=== PATIENT | female | born 1960 | race Caucasian/White ===

== ENCOUNTER → 2018-09-09 13:14 | Outpatient (CLI) | payer MEDICAID, SELFPAY | PROVIDERS: Family Provider Family Medicine; PCP Family Medicine; Referring Provider Family Medicine; Visit Provider Family Medicine | DX: E11.8 Type 2 diabetes mellitus with unspecified complications (principal); E11.65 Type 2 diabetes mellitus with hyperglycemia | CPT/HCPCS: 82009 ==

== ENCOUNTER 2018-10-04 05:50 | Emergency (ER) | payer MEDICAID, SELFPAY ==
[2018-10-04 05:51] VITALS: BP 184/111; PULSE 105; RESP 18; TEMP 36.9; O2SAT 99; BMI 21.6
[2018-10-04 06:01] LABS: Bedside Glucose 265 mg/dL (70-110)
--- NOTE | 2018-10-04 06:19 | ED.DCSUM_ITS ---
History of Present Illness Chief Complaint: General Illness Informant: Patient Narrative: Patient states she had trouble sleeping overnight because of right-sided abdominal discomfort for the last 3 or 4 days off and on, and a headache that is been there 5 or 6 days and has not gone away. She has a history of migraines and this feels similar, which he takes ibuprofen 600 mg and Maxalt, the headache improves. Headaches are not new for her. She started insulin around 3 weeks ago and thinks her abdominal discomfort may be in her abdominal wall from where she is injecting insulin, she tries to scatter it around and very the location. It hurts worse when she moves, actively sits up, and better when she remains still. No associated GI symptoms otherwise. Has had prior cholecystectomy. States her blood sugar was high this morning at 340, it has been all over the place in the last month and she brings a log showing some blood sugars at 66 and others in the 400s. She takes oral diabetes medication as well and has been working with her doctor. After taking her blood sugar and seen the 340 this morning, she took her daily insulin. She has been under a lot of stress for the last several weeks, mourning the of her mother, who had Alzheimer's and was under the care of the patient and her for a long time at home. She states now that she is here in the ER, her abdominal discomfort is much improved, she took no medication prior to coming. 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 She denies any ear symptoms. She denies any recent falls. No lateralizing neurologic symptoms. - Past Medical History (1) Migraine without aura Status: Chronic (2) Vertigo Status: Chronic (3) Gastroparesis due to DM Status: Chronic (4) HLD (hyperlipidemia) Status: Chronic (5) HTN (hypertension) Status: Chronic (6) History of orthostatic hypotension Status: Chronic (7) Post-concussion syndrome Status: Chronic (8) Type II diabetes mellitus Status: Chronic Past Medical History - Allergies and Home Meds Allergies/Adverse Reactions: Allergies No Known Allergies Allergy (Verified 10/04/18 05:53) Primary Care Physician: Dennys Serrano MD [Primary Care Provider] - 3-5 Days if not improving Surgical History: cholecystectomy Lives: Spouse/ Significant Other Smoking Status: Never smoker Drugs: None Review of Systems General: Denies: Chills, Fever, Sweats Eyes: Denies: Visual changes - bilaterally, Diplopia ENT: Denies: Rhinorrhea, Sore throat Cardiovascular: Denies: Chest pain, Palpitations Respiratory: Denies: Dyspnea, Cough, Dyspnea on exertion Gastrointestinal: Reports: Abdominal pain, Nausea. Denies: Vomiting, Diarrhea, Melena, Hematochezia Genitourinary: Reports: - - no vaginal discharge or bleeding or discomfort. Denies: Dysuria, Hematuria, Frequency Musculoskeletal: Denies: Back pain, Extremity Pain Skin: Denies: Rash, Wounds Neurological: Reports: Headache, - - vertigo x 6mos. Denies: Weakness, Numbness Psych: Reports: Depression. Denies: Suicidal thoughts, Suicidal ideations Physical Exam Vital Signs/Narrative: Vital Signs Temp Pulse Resp BP Pulse Ox 10/04/18 05:51 98.5 F 105 H 18 184/111 H 99 Inital Vital Signs reviewed: Yes General: Well nourished, Well developed, No Acute Distress - well-appearing Head: Normocephalic, Atraumatic Eyes: Perrl, EOMI ENT: Moist mucous membranes, No rhinorrhea Neck: Supple, Nontender Cardiovascular: Regular rate, Regular rhythm, No murmurs Respiratory: No distress, CTA bilaterally, Chest nontender Abdomen: Soft, Nontender, Nondistended, Normal bowel sounds Back: Nontender, Normal Inspection Extremities: Nontender, No edema. Negative for: Calf Tenderness Skin: Normal color, No rash, No Trauma Neurological: Alert, Oriented x3, Cranial nerves II-XII grossly intact, Normal Strength, Normal Sensation, Normal Gait Psychological: Normal affect, Normal Mood Diagnostic/Tx/Re-eval Laboratory Tests 10/04/18 10/04/18 10/04/18 Range/Units 06:30 06:30 05:53 WBC 4.5 (4.4-11.0) K/mm3 RBC 3.81 L (4.2-5.4) M/mm3 Hgb 10.9 L (12.0-15.0) g/dl Hct 31.6 L (37-47) % MCV 82.9 (81-99) fL MCH 28.6 (27.0-32.0) pg MCHC 34.5 (32-36) g/gl RDW 12.6 (11.6-14.6) % RDW Differential 38.3 (35.1-43.9) fl Plt Count 221 (150-450) K/mm3 MPV 8.8 (6.2-12.0) fl Immature Gran % (Auto) 0.000 (0.0-0.9) % Neut % (Auto) 61.0 (47-70) % Lymph % (Auto) 32.1 (19-41) % [place] % (Auto) 4.7 (0-10) % Eos % (Auto) 2.0 (0-5) % Baso % (Auto) 0.2 (0-1) % Absolute Neuts (auto) 2.7 (2.0-7.7) X10^3/uL Absolute Lymphs (auto) 1.44 (0.83-4.51) X10^3/ul Total Counted Not Reportable Sodium 141 (136-145) mmol/L Potassium 3.6 (3.5-5.1) mmol/L Chloride 104 (98-107) mmol/L Carbon Dioxide 31.0 (21.0-32.0) mmol/L Anion Gap 6 (5-15) BUN 18 (7-18) mg/dL Creatinine 0.78 (0.55-1.02) mg/dL Estim Creat Clear Calc 72.47 ml/min Est GFR (MDRD) Af Amer 98 (>60) mL/min Est GFR (MDRD) Non-Af 81 (>60) mL/min BUN/Creatinine Ratio 23.0 H (10-20) RATIO Glucose 232 H (74-106) mg/dL Calcium 9.1 (8.5-10.1) mg/dL Total Bilirubin 0.40 (0.20-1.00) mg/dL AST 10 L (15-37) U/L ALT 23 (13-56) U/L Alkaline Phosphatase 81 (45-117) U/L Total Protein 6.2 L (6.4-8.2) g/dL Albumin 3.1 L (3.2-5.0) g/dL Globulin 3.1 (2.2-4.2) g/dL Albumin/Globulin Ratio 1.0 (0.9-2.4) RATIO POC Glucose 265 H (70-110) mg/dL - Medical Decision Making Labs were obtained and are unremarkable with a white count of 4.5. She was given a GI cocktail and Bentyl for her abdominal discomfort, did not change a lot but she is not in a significant amount of discomfort. Her headache is improved after Reglan and Toradol along with some IV fluids. Still awaiting urinalysis. An hour after her initial blood sugar checked, she is down to 2/10 and no further treatment is necessary for that. However, her blood pressure still elevated in the 180s despite feeling better. I do not think she has acute intracranial hemorrhage, but treating this number may make her symptoms improve as well. She is getting clonidine. If her urinalysis shows no infection and her blood pressure improves, she will be discharged with appropriate instructions for follow-up. Also given a prescription for Reglan. She will need to follow-up for a blood pressure recheck. ED Disposition - Plan for ED Patient: Disposition: Home or Assisted Living Diagnosis: Migraine headache, Right sided abdominal pain, Hyperglycemia due to type 2 diabetes mellitus, Episode of hypertension Instructions: Diabetic Hyperglycemia, HEADACHE, Migraine (Classical) Prescriptions: Metoclopramide [Reglan] 10 mg PO Q6H PRN #12 tab PRN Reason: Headache/nausea Prescription Printed Referrals: Dennys Serrano MD [Primary Care Provider] - 3-5 Days if not improving
[2018-10-04] MEDS: Mag Hydrox/Al Hydrox/Simeth 30 ML UDC PO (06:30)
[2018-10-04] MEDS: Dicyclomine 10 MG Capsule 20 MG PO (06:30)
[2018-10-04] MEDS: Metoclopramide 10 MG/2 ML Vial IV (06:36)
[2018-10-04] MEDS: 0.9% Normal Saline 1,000 ML 999 ML IV (06:36)
[2018-10-04] MEDS: Ketorolac 15 MG/ML Vial IV (06:36)
[2018-10-04 06:43] LABS: Absolute Lymphocyte Count 1.44 X10^3/ul (0.83-4.51); Absolute Neutrophil Count 2.7 X10^3/uL (2.0-7.7); Basophil# 0.01 X10^3/uL; Basophil% 0.2 % (0-1); Eosinophil# 0.09 X10^3/uL; Hematocrit 31.6 % (37-47); Hemoglobin 10.9 g/dl (12.0-15.0); Lymphocyte # 1.44 X10^3/ul (4.0); Lymphocyte % 32.1 % (19-41); Mean Corp Hgb Conc 34.5 g/gl (32-36); Mean Corpuscular Hgb 28.6 pg (27.0-32.0); Mean Corpuscular Volume 82.9 fL (81-99); Mean Platelet Vol. 8.8 fl (6.2-12.0); Monocyte# 0.21 X10^3/uL; Monocyte% 4.7 % (0-10); Neutrophil # 2.74 X10^3/uL (2.7-7.7); Platelet Count 221 K/mm3 (150-450); RBC Distribution Width CV 12.6 % (11.6-14.6); RBC Distribution Width SD 38.3 fl (35.1-43.9); Red Blood Count 3.81 M/mm3 (4.2-5.4); White Blood Count 4.5 K/mm3 (4.4-11.0)
[2018-10-04 06:44] LABS: POSITIVE COUNT NO; POSITIVE DIFFERENTIAL NO; POSITIVE MORPHOLOGY NO
[2018-10-04 06:59] LABS: AST(SGOT) 10 U/L (15-37); Alanine Aminotransfer ALT/SGPT 23 U/L (13-56); Albumin, Serum 3.1 g/dL (3.2-5.0); Alkaline Phosphatase 81 U/L (45-117); Anion Gap 6 (5-15); BUN 18 mg/dL (7-18); Calcium,Total 9.1 mg/dL (8.5-10.1); Chloride 104 mmol/L (98-107); Creatinine, Serum 0.78 mg/dL (0.55-1.02); EST Glomerular Filtration Rate 81 mL/min (>60); Est Glom Filt Rate - Afr Amer 98 mL/min (>60); Estimated Creatinine Clearance 72.47 ml/min; Globulin 3.1 g/dL (2.2-4.2); Glucose 232 mg/dL (74-106); Potassium 3.6 mmol/L (3.5-5.1); Protein, Total 6.2 g/dL (6.4-8.2); Sodium Level 141 mmol/L (136-145)
[2018-10-04 07:15] LABS: Bedside Glucose 210 mg/dL (70-110)
[2018-10-04] MEDS: cloNIDine HCl 0.1 MG Tablet 0.2 MG PO (07:25)
[2018-10-04 07:26] VITALS: BP 188/107; PULSE 99; RESP 17; O2SAT 98
[2018-10-04 07:29] LABS: Bacteria 0 SEEN /hpf (None Seen); Mucous, Urine 0 SEEN /hpf (<or=2+); Red Blood Cells-Urine 0 SEEN /hpf (0-5); White Blood Cells 0 SEEN /hpf (0-5)
[2018-10-04 08:02] LABS: Color, Urine Yellow (Yellow); Glucose, Dipstick 250 mg/dl (Normal); Ketone-Dipstick 5 mg/dl (Negative); Leukocyte Esterase-Dipstick Negative /ul (Negative); Nitrite-Dipstick Negative (Negative); Occult Blood-Urine Negative /ul (Negative); Protein-Dipstick 30 mg/dl (Negative); Urine Bilirubin Dipstick Negative (Negative); Urine Clarity Clear (Clear); Urine Urobilinogen Normal (Normal)
[2018-10-04 08:04] VITALS: BP 164/99; PULSE 88; RESP 15
[2018-10-04 08:16] LABS: Squamous Epithelial Cells - UA 0-5 SEEN /hpf (5-10)
--- NOTE | 2018-10-04 08:26 | ED.VISSUMM ---
- ER Visit Summary Date of Service: 10/04/18 Chief Complaint: [Addendum to initial dictation by Dr. Karri Moura] History of Present Illness: The patient is a 58 F [the emergency department with multiple complaints of headache and abdominal discomfort and dizziness. Patient was fully evaluated by the initial physician and care was turned over to me awaiting urinalysis results. Patient also was given antihypertensive and I was asked to recheck patient's blood pressure. After clonidine the pressure now is in the 150s over 90s. Patient overall feeling improved. Urinalysis was normal. I was instructed to discharge patient home and have her follow-up with her primary care physician as long as her urinalysis was unremarkable and her blood pressure improved.] Physical Examination: [HEENT-PERRLA, EOMI. Cranial nerves II through XII grossly intact. TMs clear. Mucous membranes moist. No adenopathy. Cardiovascular-regular rate and rhythm without murmur or ectopy Lungs-clear to auscultation, chest wall stable without crepitus or subcu emphysema Abdomen-normoactive bowel sounds, soft, nontender, no rebound or rigidity, no peritoneal signs. Extremities-intact ?4, normal range of motion, normal pulses, atraumatic] Test Results: [Urinalysis was normal.] Emergency Department Course and Treatment: [] Treatment Plan: [Patient was written a prescription by Dr. Moura for Reglan.] Disposition: [Discharged home in stable condition] Impression: [Migraine headache Hypertension Abdominal pain Hyperglycemia] This note was generated with [employer] dictation software. It may contain incorrect words, spelling, and punctuation that were not noted in review of the chart prior to signing ED Disposition - Plan for ED Patient: Disposition: Home or Assisted Living Diagnosis: Migraine headache, Right sided abdominal pain, Hyperglycemia due to type 2 diabetes mellitus, Episode of hypertension Instructions: Diabetic Hyperglycemia, HEADACHE, Migraine (Classical) Prescriptions: Metoclopramide [Reglan] 10 mg PO Q6H PRN #12 tab PRN Reason: Headache/nausea Prescription Printed Referrals: Dennys Serrano MD [Primary Care Provider] - 3-5 Days if not improving
[2018-10-04 08:30] VITALS: BP 157/95; PULSE 91; RESP 16; O2SAT 98
== END 2018-10-04 08:38 | disposition home or self-care (01) ==
PROVIDERS: Emergency Provider Emergency Medicine; Family Provider Family Medicine; PCP Family Medicine
DX: G43.909 Migraine, unspecified, not intractable, without status migrainosus (principal); E11.42 Type 2 diabetes mellitus with diabetic polyneuropathy; E11.43 Type 2 diabetes mellitus with diabetic autonomic (poly)neuropathy; I10 Essential (primary) hypertension; R10.9 Unspecified abdominal pain; G30.9 Alzheimer's disease, unspecified; Z79.4 Long term (current) use of insulin; Z90.49 Acquired absence of other specified parts of digestive tract; Z87.820 Personal history of traumatic brain injury; E78.5 Hyperlipidemia, unspecified; F07.81 Postconcussional syndrome
CPT/HCPCS: 80053; 81001; 82962; 85025; 96361; 96374; 96375; 99285; J7030; A4216

== ENCOUNTER 2018-10-09 02:38 | Emergency (ER) | payer MEDICAID, SELFPAY ==
[2018-10-09 02:39] VITALS: BP 187/114; PULSE 100; RESP 20; TEMP 36.9; O2SAT 98; BMI 20.8
--- NOTE | 2018-10-09 02:46 | EKG12_ITS ---
Test Reason : DIZZY Blood Pressure : / mmHG Vent. Rate : 097 BPM Atrial Rate : 097 BPM P-R Int : 148 ms QRS Dur : 080 ms QT Int : 364 ms P-R-T Axes : 075 070 078 degrees QTc Int : 462 ms Normal sinus rhythm Normal ECG Confirmed by DAVID AMEZCUA, TED ([id number]), health editor PRAVEEN NUNEZ ([id number]) on 10/10/2018 12:24:00 PM Referred By: RICO Confirmed By:JUSTUS HERNANDEZ MD
--- NOTE | 2018-10-09 02:47 | ED.VISSUMM ---
- ER Visit Summary Date of Service: 10/09/18 Chief Complaint: Sugar issues, vertigo History of Present Illness: The patient is a 58 F vitamins of issues with her blood sugar as well as vertigo. Her blood sugar was up to 300 today. She states that then dropped down to 80. She has been working with Dr. Serrano over several appointments to help control her blood sugar. She is on oral hyperglycemics at home. She feels like she has a return of vertigo. She has had this in the past. The room is spinning and she feels unsteady on her feet. She took nothing for this at home. She also has a slight headache. No fevers. She was seen here 5 days ago and had a fairly benign work-up for abdominal pain and was discharged home. Physical Examination: Vital signs reviewed. HEENT exam unremarkable. There is no nystagmus. However, she states that movement of the eyes makes her symptoms worse. Heart is regular rate and rhythm without murmurs. Lungs are clear to auscultation. Abdomen is soft and nontender. Extremities reveal no edema. Skin exam normal, except for an abrasion to the left knee. Neurologic exam normal. Test Results: Hemoglobin 11.7. Glucose 181 Emergency Department Course and Treatment: Patient was given normal saline and meclizine. She feels much better. Her blood sugar is 181. I do not feel she needs any more insulin tonight. I will give her meclizine for home and she will need to call her PCP tomorrow for follow-up Treatment Plan: [] Disposition: Discharge Impression: Vertigo This note was generated with [employer] ([employer]) dictation software. It may contain incorrect words, spelling, and punctuation that were not noted in review of the chart prior to signing ED Disposition - Plan for ED Patient: Referrals: Dennys Serrano MD [Primary Care Provider] -
[2018-10-09 02:50] VITALS: BP 169/97; PULSE 96; RESP 16; O2SAT 99
[2018-10-09] MEDS: 0.9% Normal Saline 1,000 ML 999 ML IV (02:54)
[2018-10-09] MEDS: Meclizine HCl 25 MG Tablet PO (02:54)
[2018-10-09 02:57] LABS: Absolute Lymphocyte Count 1.56 X10^3/ul (0.83-4.51); Absolute Neutrophil Count 2.7 X10^3/uL (2.0-7.7); Basophil# 0.02 X10^3/uL; Basophil% 0.4 % (0-1); Eosinophils% 2.1 % (0-5); Hemoglobin 11.7 g/dl (12.0-15.0); Lymphocyte # 1.56 X10^3/ul (4.0); Lymphocyte % 32.6 % (19-41); Mean Corp Hgb Conc 35.5 g/gl (32-36); Mean Corpuscular Volume 81.9 fL (81-99); Mean Platelet Vol. 8.9 fl (6.2-12.0); Monocyte% 8.4 % (0-10); Neutrophil # 2.69 X10^3/uL (2.7-7.7); Neutrophil % 56.3 % (47-70); Platelet Count 260 K/mm3 (150-450); RBC Distribution Width CV 12.6 % (11.6-14.6); RBC Distribution Width SD 37.8 fl (35.1-43.9); Red Blood Count 4.03 M/mm3 (4.2-5.4); White Blood Count 4.8 K/mm3 (4.4-11.0)
[2018-10-09 02:58] LABS: POSITIVE COUNT NO; POSITIVE DIFFERENTIAL NO; POSITIVE MORPHOLOGY NO
[2018-10-09 03:04] LABS: Anion Gap 7 (5-15); BUN 12 mg/dL (7-18); BUN/Creat Ratio 16.6 RATIO (10-20); Calcium,Total 8.7 mg/dL (8.5-10.1); Chloride 104 mmol/L (98-107); Creatinine, Serum 0.72 mg/dL (0.55-1.02); EST Glomerular Filtration Rate 89 mL/min (>60); Est Glom Filt Rate - Afr Amer 107 mL/min (>60); Estimated Creatinine Clearance 78.23 ml/min; Glucose 181 mg/dL (74-106); Potassium 3.7 mmol/L (3.5-5.1); Sodium Level 140 mmol/L (136-145)
--- NOTE | 2018-10-09 03:41 | ED.DEP ---
ED Disposition - Plan for ED Patient: Disposition: Home or Assisted Living Instructions: Benign Positional Vertigo Prescriptions: Meclizine HCl [Antivert] 25 mg PO 4X/DAY PRN PRN #20 tab PRN Reason: Dizziness Prescription Printed Referrals: Dennys Serrano MD [Primary Care Provider] -
[2018-10-09 03:52] VITALS: BP 169/70; PULSE 69; RESP 18; O2SAT 98
== END 2018-10-09 03:53 | disposition home or self-care (01) ==
PROVIDERS: Emergency Provider Emergency Medicine; Family Provider Family Medicine; PCP Family Medicine
DX: R42 Dizziness and giddiness (principal); R51 Headache; E11.9 Type 2 diabetes mellitus without complications; I10 Essential (primary) hypertension; Z72.0 Tobacco use
CPT/HCPCS: 80048; 85025; 93005; 96360; 99284; J7030; A4216

== ENCOUNTER 2018-10-16 10:45 | Observation (INO) | payer MEDICAID, SELFPAY ==
[2018-10-16] VITALS (13 sets, daily range): BP systolic 87–215; BP diastolic 56–123; PULSE 94–100; RESP 14–18; TEMP 36.7–37.1; O2SAT 97–99; BMI 20.7
[2018-10-16] MEDS: 0.9% Normal Saline 1,000 ML 1000 ML IV ×2 (11:30)
[2018-10-16 11:37] LABS: Absolute Lymphocyte Count 1.47 X10^3/uL (0.83-4.51); Absolute Neutrophil Count 3.3 X10^3/uL (2.0-7.7); Basophil# 0.02 X10^3/uL; Basophil% 0.4 % (0-1); Eosinophil# 0.09 X10^3/uL; Eosinophils% 1.7 % (0-5); Hematocrit 33.9 % (37-47); Lymphocyte # 1.47 X10^3/ul (4.0); Lymphocyte % 28.4 % (19-41); Mean Corp Hgb Conc 35.4 g/dL (32-36); Mean Corpuscular Hgb 29.8 pg (27.0-32.0); Mean Corpuscular Volume 84.1 fL (81-99); Mean Platelet Vol. 9.4 fl (6.2-12.0); Monocyte% 5.8 % (0-10); NRBC Flagged by Analyzer 0 % (0-5); Neutrophil # 3.28 X10^3/uL (2.7-7.7); Neutrophil % 63.5 % (47-70); Platelet Count 293 K/mm3 (150-450); RBC Distribution Width CV 12.2 % (11.6-14.6); RBC Distribution Width SD 37.2 fl (35.1-43.9); Red Blood Count 4.03 M/mm3 (4.2-5.4); White Blood Count 5.2 K/mm3 (4.4-11.0)
[2018-10-16 11:46] LABS: Anion Gap 4 (5-15); BUN 12 mg/dL (7-18); BUN/Creat Ratio 15.2 RATIO (10-20); Calcium,Total 9.1 mg/dL (8.5-10.1); Chloride 102 mmol/L (98-107); Creatinine, Serum 0.79 mg/dL (0.55-1.02); EST Glomerular Filtration Rate 80 mL/min (>60); Est Glom Filt Rate - Afr Amer 97 mL/min (>60); Estimated Creatinine Clearance 68.33 ml/min; Glucose 262 mg/dL (74-106); Potassium 3.3 mmol/L (3.5-5.1); Sodium Level 138 mmol/L (136-145)
--- NOTE | 2018-10-16 11:51 | ED.VISSUMM ---
- ER Visit Summary Date of Service: 10/16/18 Chief Complaint: Lightheaded, off balance, falls History of Present Illness: The patient is a [address] Serrano. She reports over the past 2 days she has been a very lightheaded. This gets worse when she stands up and walks. She reports that she is very off balance as well. She has not passed out. However, she has fallen twice in the past 3 days. Did hit her head. No loss of consciousness. She is not on blood thinners. She denies any neck, back, shoulder, wrist, or hip pain. Patient denies any vertigo. She does complain of a headache is 5 out of 10 in severity. She has a history of similar headaches. She denies any other complaints. Physical Examination: Vitals: Stable. Afebrile. General: Well-nourished and well-developed. Head: Normocephalic atraumatic. Neck: Supple, no lymphadenopathy. No JVD. Nontender. Cardiovascular: Regular rate and rhythm. No murmurs. Respiratory: No respiratory distress. Clear to auscultation bilaterally. Abdominal: Soft, nontender, nondistended, normal bowel sounds. No guarding, rebound, or peritoneal signs. Back: Nontender. Extremities: Nontender, no edema. Skin: Normal color, no rash. Neurologic: Alert and oriented ?3. Cranial nerves II through XII are intact. Normal strength and sensation. Psych: Normal affect. Test Results: CBC is normal. Chem-7 shows a potassium 3.3 and glucose of 262. CT brain shows no acute disease. Emergency Department Course and Treatment: Patient's blood pressure in triage was low. However, when this was repeated orthostatic vital signs her blood pressure was in the 230/130 range. She was given a dose of Vasotec IV. Her blood pressures decreased to the 160s over 80s. However, she remains very ataxic when she stands. Treatment Plan: Patient was discussed with Dr. Matos. She will be admitted to the hospital for further evaluation and treatment. Disposition: Admitted in improved condition. Impression: 1. Ataxia. 2. Hypertension. This note was generated with [employer] software. It may contain incorrect words, spelling, and punctuation that were not noted in review of the chart prior to signing ED Disposition - Plan for ED Patient: Instructions: HYPERTENSION, To Be Confirmed, HYPOTENSION, Orthostatic Referrals: Dennys Serrano MD [Primary Care Provider] - 1-2 Days if not improving
[2018-10-16 11:56] LABS: Bedside Glucose 261 mg/dL (70-110)
--- NOTE | 2018-10-16 12:35 | CT_ITS ---
STUDY: CT BRAIN WITHOUT CONTRAST REASON FOR EXAM: Female, 58 years old. HEADACHE, DIZZINESS, FALLS X 1 WK RADIATION DOSAGE (If Supplied By Facility): CTDIvol = ( 60.81 ) mGy, DLP = ( 998.67 ) mGycm TECHNIQUE: Transaxial CT imaging of the brain was performed without administration of intravenous contrast material. Individualized dose optimization techniques were used for this CT. COMPARISON: No prior images. A prior MRI report January 14, 2012 was normal. FINDINGS: Normal soft tissue structures. Normal calvarium. Normal size ventricles and extra-axial spaces for the patient's age. Normal white matter tracts of the cerebral hemispheres. Normal basal ganglia and thalami. Normal brainstem. Normal cerebellum. There is no intracranial hemorrhage. There are no findings of an acute ischemic infarction. Normal visualized paranasal sinuses. CT/Brain/Head without Contrast IMPRESSION: Normal unenhanced CT scan of the brain. Electronically Signed: Rafia Dimas MD at 13:26 EDT , Service support ,
[2018-10-16] MEDS: Ondansetron 4 MG/2 ML Vial IV (13:18)
[2018-10-16] MEDS: Morphine 4 MG/ML Syringe IV (13:18)
[2018-10-16] MEDS: Enalaprilat 1.25 MG/ML Vial IV (15:10)
--- NOTE | 2018-10-16 15:43 | NURSING ---
DR MARISSA DYSON
--- NOTE | 2018-10-16 15:56 | NURSING ---
PCU OBS MARISSA ATAXIA, HYPERTENSION
--- NOTE | 2018-10-16 17:08 | HP.PCM_ITS ---
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 The patient is a 58 year old F who presents emergency room due to light headedness, off balance and falls. Patient reports she has chronic dizziness, lightheadedness following history of trauma at work where she sustained a head injury. Patient reports her injury occurred approximately 10 years ago and she has had ongoing vertigo and falls since that time. She also reports she has a history of orthostatic hypotension. Patient reports she has had increased dizziness over the past 2 days and multiple falls resulting in abrasions. She denies loss of consciousness. She denies new neurologic symptoms however on exam she demonstrates left upper extremity weakness which is new. She reports she previously followed with neurology who she has not seen in a long time. Her other past medical history includes type 2 diabetes mellitus, GERD, history of chronic migraines, hypertension, hyperlipidemia. 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 (Chronic) Post-concussion syndrome (Chronic) History of orthostatic hypotension (Chronic) Type II diabetes mellitus (Chronic) Allergies No Known Allergies Allergy (Verified 10/16/18 10:46) Home Medications: Ambulatory Orders Medication Instructions Recorded Dulaglutide [Trulicity] 1.5 mg SQ SA 10/04/18 Gabapentin [Neurontin] 300 mg PO QHS 10/04/18 Insulin Glulisine [Apidra Solostar] See Protocol SQ 4X/DAY 10/04/18 Meclizine HCl 25 mg PO Q6H PRN PRN 10/04/18 Metformin HCl [Metformin ER 500 mg PO DAILY 10/04/18 Gastric] Rizatriptan Benzoate [Rizatriptan] 10 mg PO DAILY PRN PRN 10/04/18 Ibuprofen [Advil] 400 mg PO Q6H PRN PRN 10/16/18 Omeprazole [Prilosec] 20 mg PO DAILY 10/16/18 Sitagliptin Phosphate [Januvia] 100 mg PO DAILY 10/16/18 Surgical History: cholecystectomy, - - TMJ surgery Psychiatric History: No pertinent psych hx 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 Denies: Sinus Congestion, Sinus Drainage Cardiovascular: Reports: Light Headedness. Denies: Chest Pain, Palpitations, Syncope Respiratory: Denies: Cough, Shortness of breath at rest, Sputum production Gastrointestinal: Denies: Abdominal Pain, Nausea, Vomiting Genitourinary: Denies: Dysuria Musculoskeletal: Denies: Joint Pain, Joint Tenderness Skin: Reports: - - Left knee abrasion, chin abrasion. Denies: Rash, Wounds Neurological: Reports: Balance problems, - - Left arm weakness, ataxia. Denies: Focal weakness, Numbness, Tingling Psychiatric: Denies: Anxiety, Depression, Homicidal Ideations, Suicidal Ideations Hematologic/ Lymphatic: Denies: Easy Bruising, Easy Bleeding VTE Information - Inpt Only VTE Present on Admission: No VTE Mechan Device Prophylaxis: None VTE Pharm Prophylaxis ordered?: Yes - Physical Exam General: Alert, Oriented x3, Cooperative HEENT: Atraumatic, PERRLA, EOMI, Normocephalic Neck: Supple, No JVD, Negative Carotid Bruits Lungs: Clear to auscultation, Normal air movement Cardiovascular: Regular rate, Regular Rhythm, Normal S1, Normal S2, No murmurs Abdomen: Bowel Sounds Present, Soft, Non Tender, Non-Distended Extremities: No clubbing, No cyanosis, No edema, Capillary Refill Less than 3 Seconds Skin: No rashes, No breakdown, - - Left knee abrasion, mandible abrasion Musculoskeletal: No Tenderness to Palpation of Joints or Extremities Neurological: Cranial nerves II-XII grossly intact, - - Bilateral upper extremity ataxia, left arm weakness. Psych/Mental Status: Normal Affect, Appropriate Vital Signs Temp Pulse Resp BP Pulse Ox 98.2 F 97 18 172/97 H 97 10/16/18 10:46 10/16/18 17:00 10/16/18 17:00 10/16/18 17:00 10/16/18 17:00 Oxygen Delivery Method Room Air Weight: 120 lb Body Mass Index (BMI) 20.0 Finger Stick Blood Glucose 261 Laboratory Tests Past 24 Hrs 10/16/18 10/16/18 11:25 11:25 WBC 5.2 RBC 4.03 L Hgb 12.0 Hct 33.9 L MCV 84.1 MCH 29.8 MCHC 35.4 RDW Std Deviation 37.2 RDW Coeff of Chris 12.2 Plt Count 293 MPV 9.4 Immature Gran % (Auto) 0.200 Neut % (Auto) 63.5 Lymph % (Auto) 28.4 [place] % (Auto) 5.8 Eos % (Auto) 1.7 Baso % (Auto) 0.4 Absolute Neuts (auto) 3.3 Absolute Lymphs (auto) 1.47 Absolute Nucleated RBC 0.00 Nucleated RBC % 0 Sodium 138 Potassium 3.3 L Chloride 102 Carbon Dioxide 32.0 Anion Gap 4 L BUN 12 Creatinine 0.79 Estim Creat Clear Calc 68.33 Est GFR (MDRD) Af Amer 97 Est GFR (MDRD) Non-Af 80 BUN/Creatinine Ratio 15.2 Glucose 262 H Calcium 9.1 POC Glucose 10/16/18 11:41 POC Glucose 261 H Assessment/Plan All Active Problems Allergic reaction (Resolved) Angio-edema (Resolved) 1. Ataxia, unsteady gait, falls, LUE weakness-rule out CVA. Brain CT on admission normal. Obtain MRI of brain, MRA of head and neck. PT/OT/ST. Aspirin, statin. Consult neurology. Fall precautions. [facility]. 2. Orthostatic hypotension-orthostatic vitals positive on admission. IV fluids. Repeat in a.m. 3. Hypertension, poorly controlled-received 1 dose of IV Vasotec in ER with improvement in blood pressure. Permissive given #1. 4. Type 2 diabetes mellitus-hold oral regimen. Accu-Cheks ACHS with SSI. 5. Chronic migraines-continue home PRN triptan regimen. 6. GERD-continue omeprazole regimen. 7. Hyperlipidemia-not previously on statin, fasting lipid panel in a.m. DVT prophylaxis-Lovenox subcu This patient was seen by JUAN MANUEL Vigil under the supervision of Dr. Matos. <Go Matos - Last Filed: 10/16/18 18:48> History of Present Illness The patient is a 58 year old F with history of diabetes mellitus type 2, migraine headache came to ER with generalized weakness, dizziness, off balance and recurrent fall. Patient further said she fell 3 times in last week, last one 2 days ago. She fell on her left side of her head but denies loss of consciousness. She she had concussion injury about 10 years ago. The symptoms of dizziness and off-balance are old for about 8 to 10 years but has gotten worse for last 6 weeks. She has mild left upper extremity weakness. In ED, her blood pressure was high. Orthostatics were done which was was positive. She has history of orthostatic hypotension. Past Medical History Allergies No Known Allergies Allergy (Verified 10/16/18 10:46) - Physical Exam General: Alert, Oriented x3, Cooperative, - HEENT: Atraumatic, PERRLA, EOMI, Normocephalic, - - No laceration noted on scalp. Neck: Supple, No JVD, Negative Carotid Bruits Lungs: Clear to auscultation, Normal air movement, No rhonchi, No wheeze, No rales Cardiovascular: Regular rate, No murmurs Abdomen: Bowel Sounds Present, Soft, Non Tender, No Hepato-splenomegaly Extremities: No edema, Capillary Refill Less than 3 Seconds Skin: No rashes, No breakdown, - - Left knee abrasion, mandible abrasion Left knee abrasion with scab. Musculoskeletal: No Tenderness to Palpation of Joints or Extremities, Arthritic Changes, Muscle Wasting Neurological: Cranial nerves II-XII grossly intact, Deep Tendon Reflexes 2+/4 and Symmetrical, Neuro grossly intact, - - Bilateral upper extremity ataxia, left arm weakness. Need to rick test is normal. Left upper extremity weakness 4/5 and has dysmetria. Psych/Mental Status: Normal Affect, Appropriate Vital Signs Temp Pulse Resp BP Pulse Ox 98.8 F 94 16 189/90 H 98 10/16/18 17:44 10/16/18 17:44 10/16/18 17:44 10/16/18 17:44 10/16/18 17:44 Oxygen Delivery Method Room Air Weight: 124 lb 8.979 oz Body Mass Index (BMI) 20.7 Finger Stick Blood Glucose 261 Laboratory Tests Past 24 Hrs 10/16/18 10/16/18 10/16/18 11:25 11:25 18:30 WBC 5.2 RBC 4.03 L Hgb 12.0 Hct 33.9 L MCV 84.1 MCH 29.8 MCHC 35.4 RDW Std Deviation 37.2 RDW Coeff of Chris 12.2 Plt Count 293 MPV 9.4 Immature Gran % (Auto) 0.200 Neut % (Auto) 63.5 Lymph % (Auto) 28.4 [place] % (Auto) 5.8 Eos % (Auto) 1.7 Baso % (Auto) 0.4 Absolute Neuts (auto) 3.3 Absolute Lymphs (auto) 1.47 Absolute Nucleated RBC 0.00 Nucleated RBC % 0 Sodium 138 Potassium 3.3 L Chloride 102 Carbon Dioxide 32.0 Anion Gap 4 L BUN 12 Creatinine 0.79 Estim Creat Clear Calc 68.33 Est GFR (MDRD) Af Amer 97 Est GFR (MDRD) Non-Af 80 BUN/Creatinine Ratio 15.2 Glucose 262 H Calcium 9.1 Urine Opiates Screen Pending Urine Methadone Screen Pending Ur Barbiturates Screen Pending Ur Phencyclidine Scrn Pending Ur Amphetamines Screen Pending U Methamphetamin-MDMA Pending U Benzodiazepines Scrn Pending Urine Cocaine Screen Pending U Cannabinoids Screen Pending Ur Drug Screen Comment POC Glucose 10/16/18 11:41 POC Glucose 261 H Assessment/Plan This patient was seen in conjunction with FINISH SPECIALIST, Marie. I have independently interviewed and examined the patient and reviewed pertinent history, examination findings, laboratory and plan of management. I have reviewed the note and agree with the documented findings with the few additional points. In brief, patient is a 58-year-old female with history of type 2 diabetes mellitus, chronic migraine came to ER with progressive worsening of ataxia, recurrent fall, lightheadedness and high blood pressure. Exact time of onset u nclear but probably [address] head does not show acute change. MRI of brain and MRI C-spine ordered. 2D echo ordered. NIH stroke scale. Neurology is being consulted. Carotid Doppler is ordered. Orthostatic vital shows 214/10, heart rate 138 on lying position and 169/91, 117 on standing. Patient has history of orthostatic hypotension. Patient also with mild hypokalemia which is being replaced. I have discussed my assessment with FINISH SPECIALISTMarie and orders have been reviewed. Code Visit OBSV E&M: 82030 Initial observation care L3
--- NOTE | 2018-10-16 17:38 | MRI_ITS ---
STUDY: MRI BRAIN WITHOUT CONTRAST REASON FOR EXAM: Female, 58 years old. Weakness and ataxia TECHNIQUE: Standardized multiplanar fat and water weighted pulse sequences were obtained. COMPARISON: CT of the brain on October 16, 2018 FINDINGS: Mild to moderate atrophy.. Normal white matter tracts of the supratentorial brain. Tiny focus of increased signal intensity within the right pontine body best visualized on FLAIR imaging sequence consistent with old lacunar infarct. Normal bilateral basal ganglia. Normal thalami. There is no extra-axial fluid accumulation. Normal flow voids within the major intracranial circulation suggesting patency by spin echo criteria. Normal sella turcica, pituitary gland, infundibular stalk, optic chiasm and hypothalamus. Normal tectal plate and pineal gland. Normal midbrain, and medulla. Normal cerebellum. Normal basal cisterns. Normal bilateral temporal bones. Normal bilateral internal auditory canals. No demonstrated orbital abnormality, within the constraints of a routine brain study. Minor mucosal thickening of the left maxillary and bilateral ethmoid air cells. Normal calvarium and skull base. Normal visualized soft tissue structures. Normal visualized upper cervical spine. MRI/Brain without Contrast IMPRESSION: Mild to moderate diffuse atrophy.. No significant white matter disease or evidence for acute infarct. Tiny old right pontine lacunar infarct Electronically Signed: Manjit Saleem MD at 21:04 EDT , Service support ,
--- NOTE | 2018-10-16 17:38 | EKG12_ITS ---
Test Reason : ADMIT EKG Blood Pressure : / mmHG Vent. Rate : 096 BPM Atrial Rate : 096 BPM P-R Int : 164 ms QRS Dur : 082 ms QT Int : 354 ms P-R-T Axes : 087 071 074 degrees QTc Int : 447 ms Normal sinus rhythm Normal ECG When compared with ECG of 09-OCT-2018 02:46, No significant change was found Confirmed by ALYSSIA AMEZCUA, KARLA ([id number]), loan expeditor PRAVEEN NUNEZ ([id number]) on 10/21/2018 2:01:18 PM Referred By: Go Matos Confirmed By:KARLA CADE MD
--- NOTE | 2018-10-16 17:56 | ECHOD_ITS ---
Reason For Study: TIA/CVA Procedure This was a 2D Doppler, Color Flow transthoracic echocardiogram. Exam performed portable in patient room. Left Ventricle Normal LV size. Left ventricular systolic function is normal. Stage 1 diastolic dysfunction. No regional wall motion abnormalities noted. Right Ventricle Normal RV size. Normal systolic function. Atria Normal left atrium. Normal right atrium. Bubble contrast study negative for right to left interatrial shunt. Mitral Valve Normal mitral valve. Tricuspid Valve Normal tricuspid valve. Aortic Valve Normal aortic valve. Trisinus/trileaflet aortic valve. Pulmonic Valve Normal pulmonic valve. Great Vessels Normal aortic root. The pulmonary artery is normal size. Normal inferior vena cava. Pericardium/Pleural No pericardial effusion. Medication Performed a rapid injection of agitated mix of 9 cc saline and 1cc air to assess for atrial septal defect. MMode/2D Measurements & Calculations LVIDd: 5.1 cm IVSd: 0.76 cm Ao root diam: 3.1 cm LVIDs: 3.9 cm LVPWd: 0.76 cm RVDd: 2.8 cm FS: 23.2 % LAV(MOD-bp): 36.5 ml LVAd ap4: 31.5 cm2 SV(MOD-sp4): 51.1 ml LAV(MOD-bp) Indexed: 22.8 ml/m2 EDV(MOD-sp4): 101.3 ml LAV(MOD-sp2): 34.2 ml EDV(sp4-el): 107.3 ml LAV(MOD-sp4): 31.2 ml LVAs ap4: 20.2 cm2 ESV(MOD-sp4): 50.2 ml ESV(sp4-el): 52.7 ml EF(MOD-sp4): 50.4 % EF(sp4-el): 50.9 % SV(sp4-el): 54.6 ml LA A4 area: 12.5 cm2 LA dimension(2D): 3.0 cm RA A4 area: 7.7 cm2 Time Measurements MV dec time: 0.22 sec Doppler Measurements & Calculations MV E max virgil: 72.4 cm/sec Lat Peak E' Virgil: 13.1 cm/sec Med Peak E' Virgil: 8.3 cm/sec MV A max virgil: 79.9 cm/sec E/E' lat: 5.5 E/E' med: 8.7 MV E/A: 0.91 Ao V2 max: 132.8 cm/sec LV V1 max: 88.4 cm/sec PA V2 max: 108.2 cm/sec Ao max P.1 mmHg LV V1 max P.1 mmHg Interpretation Summary Normal LV size. Left ventricular systolic function is normal. Stage 1 diastolic dysfunction. Bubble contrast study negative for right to left interatrial shunt. Ordering Physician: Marie Vela Referring Physician: Go Matos Performed By: Tomeka Trivedi RDCS
--- NOTE | 2018-10-16 18:13 | MRI_ITS ---
STUDY: MRI CERVICAL SPINE WITHOUT CONTRAST REASON FOR EXAM: Female, 58 years old. Ataxia and falls with weakness TECHNIQUE: Standardized fat and water weighted pulse sequences were obtained in the sagittal and axial planes. COMPARISON: None FINDINGS: Normal foramen magnum and brainstem-cervical cord junction. Normal craniovertebral junction. Normal anterior atlantoaxial articulation. Normal odontoid process. Decreased cervical lordosis. Normal vertebral bodies and posterior osseous elements. C2-3: Normal endplates. Normal disc height, signal and morphology. Normal central canal and intervertebral neural foramina. C3-4: Normal endplates. Normal disc height, signal and morphology. Normal central canal and intervertebral neural foramina. C4-5: Normal endplates. Normal disc height, signal and morphology. Normal central canal and intervertebral neural foramina. C5-6: Normal endplates. Normal disc height, signal and tiny right paracentral disc protrusion.. Normal central canal. Mild bilateral neural foraminal encroachment secondary to bony hypertrophy. C6-7: Normal endplates. Normal disc height signal and morphology. Normal central canal and intervertebral neuroforamina C7-T1:: Normal endplates. Normal disc height, signal and small left posterolateral disc protrusion.. Normal central canal and intervertebral neural foramina. Normal cervical cord. Normal visualized soft tissue structures. MRI/Spine Cervical (Routine) IMPRESSION: No evidence for acute fracture or subluxation.. Tiny right paracentral disc protrusion at C5-6 without significant spinal stenosis or cord compression. Mild bilateral neural foraminal encroachment secondary to bony hypertrophy. Small left posterolateral disc protrusion at C7-T1 without significant spinal stenosis Electronically Signed: Manjit Saleem MD at 21:44 EDT , Service support ,
--- NOTE | 2018-10-16 18:50 | MRI_ITS ---
STUDY: MRA NECK WITHOUT CONTRAST REASON FOR EXAM: Female, 58 years old. CVA TECHNIQUE: Source images were obtained, MIPs were performed. The study was performed unenhanced. COMPARISON: None. FINDINGS: RIGHT CAROTID ARTERIES: Normal right common carotid artery (CCA). Normal right common carotid bulb. Normal origin of the right internal carotid (ICA) artery without a hemodynamically significant stenosis. Normal visualized cervical portion of the right internal carotid artery. Normal origin of the right external carotid artery (ECA). LEFT CAROTID ARTERIES: Normal left common carotid artery (CCA). Normal left common carotid bulb. Normal origin of the left internal carotid (ICA) artery without a hemodynamically significant stenosis. Normal visualized cervical portion of the left internal carotid artery. Normal origin of the left external carotid artery (ECA). VERTEBRAL ARTERIES: Normal antegrade flow within the bilateral vertebral artery without a hemodynamically significant stenosis. MRI/MRA Neck without Contrast IMPRESSION: Normal bilateral cervical carotid and vertebral arteries. Electronically Signed: Manjit Saleem MD at 21:07 EDT , Service support ,
--- NOTE | 2018-10-16 18:50 | MRI_ITS ---
STUDY: MRA OF THE HEAD WITHOUT CONTRAST REASON FOR EXAM: Female, 58 years old. CVA TECHNIQUE: 3-D [id number] (TOF) imaging was performed with MIPs. The study was performed unenhanced. COMPARISON: None. FINDINGS: Normal bilateral petrous carotid arteries. Normal right cavernous carotid artery with a normal supraclinoid bifurcation. Normal left cavernous carotid artery with a normal supraclinoid bifurcation. Normal right A1 segments of the anterior cerebral artery. Normal left A1 segments of the anterior cerebral artery. Anterior communicating artery not visualized consistent with normal variant). Normal bilateral A2 segments of the anterior cerebral arteries. Normal right M1 and M2 segments of the middle cerebral arteries, with a normal M1 bifurcation. Normal left M1 and M2 segments of the middle cerebral arteries, with a normal M1 bifurcation. Normal right posterior communicating artery (PCOM). Left posterior communicating artery not visualized consistent with normal variant Normal bilateral vertebral arteries. Normal basilar artery with a normal basilar bifurcation. The visualized bilateral superior cerebellar (SCA) arteries are normal. Normal left posterior cerebral artery. Nonvisualization of the P3 and P4 segments of the right posterior cerebral artery with vascular territory perfused by right posterior communicating artery which may be consistent with normal variant There is no demonstrated aneurysm of the [place]. There is no major vessel occlusion or hemodynamically significant stenosis. There is no demonstrated abnormality of the visualized brain. MRI/MRA Head ONLY without Contrast IMPRESSION: Normal MRA of the head Electronically Signed: Manjit Saleem MD at 21:07 EDT , Service support ,
[2018-10-16 18:51] LABS: Amphetamine Urine VISTA NEGATIVE (<1000 ng/mL); Barbiturate Urine VISTA NEGATIVE (< 200 ng/mL); Benzodiazepine Urine VISTA NEGATIVE (< 200 ng/mL); Cocaine Urine VISTA NEGATIVE (< 300 ng/mL); Ecstacy Urine VISTA NEGATIVE (< 500 ng/mL); Methadone Urine VISTA NEGATIVE (< 300 ng/mL); PCP Urine VISTA NEGATIVE (< 25 ng/mL); THC Urine VISTA NEGATIVE (< 50 ng/mL); Vista UDS pH Range 6
[2018-10-16 21:16] LABS: Bedside Glucose 263 mg/dL (70-110)
[2018-10-16] MEDS: Insulin Lispro 100 UNIT/ML INSULN.PEN SC (21:56)
[2018-10-16] MEDS: Atorvastatin Calcium 80 MG Tablet PO (21:57)
[2018-10-16] MEDS: Gabapentin 300 MG Capsule PO (21:57)
[2018-10-16] MEDS: 0.9% Normal Saline 1,000 ML 75 ML IV (22:25)
[2018-10-16] MEDS: Rizatriptan Benzoate 10 MG Tablet PO (22:43)
[2018-10-17] VITALS (8 sets, daily range): BP systolic 132–213; BP diastolic 73–112; PULSE 89–99; RESP 14–18; TEMP 36.8–37.1; O2SAT 98–99
[2018-10-17] MEDS: 0.9% NaCl Peripheral Flush Adult/Peds IV ×3 (01:09→10:58)
[2018-10-17] MEDS: Ondansetron 4 MG/2 ML Vial IV ×2 (01:09→10:53)
[2018-10-17 06:17] LABS: Anion Gap 7 (5-15); BUN 8 mg/dL (7-18); BUN/Creat Ratio 11.3 RATIO (10-20); Calcium,Total 8.9 mg/dL (8.5-10.1); Chloride 107 mmol/L (98-107); Cholesterol 119 mg/dL (200); Creatinine, Serum 0.71 mg/dL (0.55-1.02); EST Glomerular Filtration Rate 91 mL/min (>60); Est Glom Filt Rate - Afr Amer 110 mL/min (>60); Glucose 278 mg/dL (74-106); High Density Lipoprotein 50 mg/dL; Magnesium 1.7 mg/dL (1.6-2.6); Potassium 4.2 mmol/L (3.5-5.1); Sodium Level 141 mmol/L (136-145); Thyroid Stim Hormone (TSH) 2.33 uIU/mL (0.358-3.74); Triglycerides 124 mg/dL; Very Low Density Lipoprotein 25 mg/dL (5-40)
[2018-10-17] MEDS: Insulin Lispro 100 UNIT/ML INSULN.PEN SC ×2 (06:41→11:03)
[2018-10-17 06:50] LABS: Bedside Glucose 252 mg/dL (70-110)
[2018-10-17] MEDS: Pantoprazole Sodium 20 MG Tablet PO (08:18)
[2018-10-17] MEDS: Enoxaparin 40 MG/0.4 ML Syringe SC (08:18)
[2018-10-17] MEDS: Aspirin 81 MG TAB.CHEW PO (08:18)
[2018-10-17] MEDS: hydrALAZINE 20 MG/ML Vial 10 MG IV (10:46)
[2018-10-17] MEDS: Ibuprofen 200 MG Tablet 400 MG PO (10:53)
[2018-10-17] MEDS: 0.9% Normal Saline 1,000 ML 75 ML IV (10:54)
[2018-10-17 11:25] LABS: Bedside Glucose 331 mg/dL (70-110)
--- NOTE | 2018-10-17 13:02 | PCM.CONS.GEN ---
Problem List (1) Dizziness Status: Acute (2) Headache Status: Acute (3) Balance problem Status: Acute (4) Falls Status: Acute (5) Migraine without aura Status: Chronic Reason for Consult Date of Consultation: 10/17/18 Reason for Consultation: Balance problem, falls, headache and dizziness History of Present Illness: The patient is a 58 year old F with PMH HTN, HLD, DM, history of migraines, vertigo admitted with dizziness balance issues and falls. Per patient she has chronic history of dizziness and lightheadedness, per patient has history of orthostatic hypotension, has been having chronic balance issues, has been falling for about 2-3 times in the last 2 weeks per patient, has chronic migraine headaches, has frontal headache which is about once a week without any photophobia phonophobia or visual aura. Patient denies any neck pain or radicular symptoms, denies any low back pain or radicular symptoms, denies any persistent burning pain in the feet but per patient has been having some paresthesias in the fingers. Lives with a boyfriend, uses walker to ambulate and does not drive. MRI brain on admission reported to show nothing acute but tiny old right pontine infarct. MRA head/neck did not show any hemodynamically significant stenosis or occlusion per report. MRI C-spine without contrast reported to show tiny right paracentral disc protrusion at C5-C6 without spinal stenosis or cord compression, mild bilateral neural foraminal encroachment, small left posterolateral disc protrusion at C7-T1 without significant spinal stenosis [] 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 (Chronic) Post-concussion syndrome (Chronic) History of orthostatic hypotension (Chronic) Type II diabetes mellitus (Chronic) Allergies No Known Allergies Allergy (Verified 10/16/18 10:46) Home Medications: Ambulatory Orders Medication Instructions Recorded Dulaglutide [Trulicity] 1.5 mg SQ SA 10/04/18 Gabapentin [Neurontin] 300 mg PO QHS 10/04/18 Insulin Glulisine [Apidra Solostar] See Protocol SQ 4X/DAY 10/04/18 Meclizine HCl 25 mg PO Q6H PRN PRN 10/04/18 Metformin HCl [Metformin ER 500 mg PO DAILY 10/04/18 Gastric] Rizatriptan Benzoate [Rizatriptan] 10 mg PO DAILY PRN PRN 10/04/18 Ibuprofen [Advil] 400 mg PO Q6H PRN PRN 10/16/18 Omeprazole [Prilosec] 20 mg PO DAILY 10/16/18 Sitagliptin Phosphate [Januvia] 100 mg PO DAILY 10/16/18 Surgical History: cholecystectomy, - - TMJ surgery Psychiatric History: No pertinent psych hx 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 Lives: Spouse/ Significant Other Smoking Status: Never smoker Tobacco Use: Non-smoker Alcohol: None Drugs: None - *Family History Maternal History Items: - - Recently passed, August 2017 secondary to complications from Alzheimer's disease Paternal History Items: - - Emphysema, lymphoma Review of Systems Constitutional: Reports: - - Complete ROS negative except as documented in HPI Patient Problems: Active and Suspected Problems Dizziness (Acute) Headache (Acute) Balance problem (Acute) Falls (Acute) - Physical Exam General: Alert HEENT: Normocephalic Neck: Supple Lungs: Normal air movement Cardiovascular: Normal S1, Normal S2 Abdomen: Bowel Sounds Present Extremities: No cyanosis Neurological: - - Conscious, alert, CN II through XII grossly intact, power 5/5 both UE/LE, some giveaway weakness in the UE, no sensory loss, no cerebellar signs, Reflexes + B/L B/S/T/K/A, no NR, gait deferred, fundus not visualized, Rhomberg's deferred Psych/Mental Status: Normal Affect Vital Signs Temp Pulse Resp BP Pulse Ox 98.3 F 95 16 186/97 H 98 10/17/18 10:44 10/17/18 10:46 10/17/18 10:44 10/17/18 10:46 10/17/18 10:44 Oxygen Delivery Method Room Air Weight: 56.5 kg Body Mass Index (BMI) 20.7 Finger Stick Blood Glucose 261 Orthostatic Vital Signs Start: 10/17/18 06:16 Freq: q24h Status: Active Protocol: Activity Type Activity Date Activity User E-Sign Co-Sign Detail Recorded Client Recorded Date Recorded By Document 07/19/19 04:55 PAL [id number] 10/17/18 06:18 PAL 10/17/18 04:55 Orthostatic Vitals Standing -Blood Pressure (90/60-120/80) 132/79 H -Extremity Use Right Arm -Pulse Rate (60-100) 96 Sitting -Blood Pressure (90/60-120/80) 183/108 H -Extremity Use Right Arm -Pulse Rate (60-100) 91 Lying -Blood Pressure (90/60-120/80) 213/112 H -Extremity Use Right Arm -Pulse Rate (60-100) 89 Intake and Output for Last 24 Hours 10/15/18 10/16/18 10/17/18 23:59 23:59 23:59 Intake Total 330 / 330 1164 / 1164 Output Total 600 / 600 1200 / 1200 Balance -270 / -270 -36 / -36 Laboratory Tests Past 24 Hrs 10/16/18 10/17/18 18:30 05:30 Sodium 141 Potassium 4.2 Chloride 107 Carbon Dioxide 27.0 Anion Gap 7 BUN 8 Creatinine 0.71 Estim Creat Clear Calc 76.40 Est GFR (MDRD) Af Amer 110 Est GFR (MDRD) Non-Af 91 BUN/Creatinine Ratio 11.3 Glucose 278 H Calcium 8.9 Magnesium 1.7 Triglycerides 124 Cholesterol 119 LDL Cholesterol 44 VLDL Cholesterol 25 HDL Cholesterol 50 TSH 2.33 Urine Opiates Screen POSITIVE H Urine Methadone Screen NEGATIVE Ur Barbiturates Screen NEGATIVE Ur Phencyclidine Scrn NEGATIVE Ur Amphetamines Screen NEGATIVE U Methamphetamin-MDMA NEGATIVE U Benzodiazepines Scrn NEGATIVE Urine Cocaine Screen NEGATIVE U Cannabinoids Screen NEGATIVE Ur Drug Screen Comment POC Glucose 10/17/18 10/17/18 10/16/18 11:02 06:39 21:08 POC Glucose 331 H 252 H 263 H Assessment/Plan All Active Problems Dizziness (Acute) Headache (Acute) Balance problem (Acute) Falls (Acute) Allergic reaction (Resolved) Angio-edema (Resolved) The patient is a 58 year old F with PMH HTN, HLD, DM, history of migraines, vertigo admitted with dizziness balance issues and falls. Per patient she has chronic history of dizziness and lightheadedness, per patient has history of orthostatic hypotension, has been having chronic balance issues, has been falling for about 2-3 times in the last 2 weeks per patient, has chronic migraine headaches, has frontal headache which is about once a week without any photophobia phonophobia or visual aura. Patient denies any neck pain or radicular symptoms, denies any low back pain or radicular symptoms, denies any persistent burning pain in the feet but per patient has been having some paresthesias in the fingers. Lives with a boyfriend, uses walker to ambulate and does not drive. MRI brain on admission reported to show nothing acute but tiny old right pontine infarct. MRA head/neck did not show any hemodynamically significant stenosis or occlusion per report. MRI C-spine without contrast reported to show tiny right paracentral disc protrusion at C5-C6 without spinal stenosis or cord compression, mild bilateral neural foraminal encroachment, small left posterolateral disc protrusion at C7-T1 without significant spinal stenosis [] Impression Falls, balance issues Uncontrolled HTN on admission H/O orthostatic hypotension H/O migraines H/O stroke Plan ?MRI brain and MRI C-spine report reviewed ?Aspirin and statins for secondary stroke prevention. Lipitor 40 mg p.o. nightly ?EMG/nerve conduction studies both lower extremities as outpatient ?Avoid triptan's for migraines given the history of stroke as reported on MRI brain. ?PT/OT/balance therapy and vestibular therapy ?Recheck orthostatic vitals ?Labs reviewed, UDS positive for opiates. Check UA, ESR ?Increase fluid intake, compression stockings thigh-high ?Fall precautions ?GI/DVT prophylaxis ?Further medical management per hospitalist team ?Follow-up with neurology as outpatient in 6 weeks ?Please call with questions if any ?Thank you for allowing us to participate in patient's care and management
[2018-10-17] MEDS: Lisinopril 10 MG Tablet PO (13:15)
[2018-10-17 13:44] LABS: Erythrocyte Sedimentation Rate 20 mm/hr (0-30)
--- NOTE | 2018-10-17 13:53 | PCM.DC ---
- Discharge Diagnoses Current Active Problems: Current Active and Chronic Problems Dizziness (Acute) Headache (Acute) Balance problem (Acute) Falls (Acute) You will use the following diet at home:: Cardiac Discharge Activity: Return to Normal Activity Call your doctor if you observe: Shortness of breath, Dizziness, Fainting spells, Chest pain Instructions: HYPERTENSION, To Be Confirmed, HYPOTENSION, Orthostatic Allergies/Adverse Reactions: Allergies No Known Allergies Allergy (Verified 10/16/18 10:46) Medications to take at Discharge Dulaglutide [Trulicity] 1.5 mg SQ SA 10/04/18 Gabapentin [Neurontin] 300 mg PO QHS 10/04/18 Insulin Glulisine [Apidra Solostar] See Protocol SQ 4X/DAY 10/04/18 Meclizine HCl 25 mg PO Q6H PRN PRN 10/04/18 Metformin HCl [Metformin ER Gastric] 500 mg PO DAILY 10/04/18 Ibuprofen [Advil] 400 mg PO Q6H PRN PRN 10/16/18 Omeprazole [Prilosec] 20 mg PO DAILY 10/16/18 Sitagliptin Phosphate [Januvia] 100 mg PO DAILY 10/16/18 Aspirin [Aspirin, Baby] 81 mg PO DAILY@0800 #30 tab.chew 10/17/18 Atorvastatin Calcium [Lipitor] 40 mg PO QHS #30 tab 10/17/18 Lisinopril [Zestril] 10 mg PO DAILY #30 tab 10/17/18 The following prescriptions were given: Aspirin [Aspirin, Baby] 81 mg PO DAILY@0800 #30 tab.chew Transmission Status: Pending to [facility] Atorvastatin Calcium [Lipitor] 40 mg PO QHS #30 tab Transmission Status: Pending to [facility] Lisinopril [Zestril] 10 mg PO DAILY #30 tab Transmission Status: Pending to [facility] Primary Care Physician: Dennys Serrano MD [Primary Care Provider] - 1-2 Days if not improving Please follow up with your Primary Care Physician in: 1 Week Test Results: Test results from this visit will be discussed in further detail at your follow-up appointment, if applicable. Please Follow Up With: Leia Farr MD When: 6 Weeks Proposed Discharge Date: 10/17/18
--- NOTE | 2018-10-17 14:05 | CASEMGMT ---
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 This RN CM to room to discuss with pt and pt states that she would prefer to have HHC at this time. Pt states no preference and [facility] not take [facility] so referral faxed to [facility] at this time and call to Tina at [facility] and she states that they will take pt at this time. Pt/family updated at this time, voice understanding. Order placed for RN, PT/OT at this time. Pt's family state that they feel pt should go to SNF for rehab but pt is adamantly declining at this time. SStaten PRIYA SILVA
--- NOTE | 2018-10-17 14:10 | PCM.DC.SUM ---
<Marie Vela - Last Filed: 10/17/18 14:41> Discharge Date and Diagnosis Date of Admission: 10/16/18 Date of Discharge: 10/17/18 - Primary Discharge Diagnosis Active and Suspected Problems 1. Chronic ataxia, unsteady gait, LUE weakness-CVA ruled out. MRI with tiny old right pontine lacunar infarct. 2. Orthostatic hypotension, chronic 3. Hypertension, poorly controlled 4. Type 2 diabetes mellitus 5. Chronic migraines 6. GERD 7. Hyperlipidemia - Secondary Discharge Diagnosis Chronic Problems Migraine without aura (Chronic) Vertigo (Chronic) Gastroparesis due to DM (Chronic) Benign Prostatic Hypertrophy w o LUTS (Chronic) HTN (hypertension) (Chronic) HLD (hyperlipidemia) (Chronic) Occlusion of carotid artery without cerebral infarction (Chronic) Post-concussion syndrome (Chronic) History of orthostatic hypotension (Chronic) Type II diabetes mellitus (Chronic) Hospital Course and Treatment Imaging Results: Diagnostic Data Brain CT 10/16/18 12:35 IMPRESSION: Normal unenhanced CT scan of the brain. Electronically Signed: Rafia Dimas MD at 13:26 EDT , Service support , Brain MRI 10/16/18 17:38 IMPRESSION: Mild to moderate diffuse atrophy.. No significant white matter disease or evidence for acute infarct. Tiny old right pontine lacunar infarct Electronically Signed: Manjit Saleem MD at 21:04 EDT , Service support , Cervical Spine MRI 10/16/18 18:13 IMPRESSION: No evidence for acute fracture or subluxation.. Tiny right paracentral disc protrusion at C5-6 without significant spinal stenosis or cord compression. Mild bilateral neural foraminal encroachment secondary to bony hypertrophy. Small left posterolateral disc protrusion at C7-T1 without significant spinal stenosis Electronically Signed: Manjit Saleem MD at 21:44 EDT , Service support , Head MRA 10/16/18 18:50 IMPRESSION: Normal MRA of the head Electronically Signed: Manjit Saleem MD at 21:07 EDT , Service support , Neck MRA 10/16/18 18:50 IMPRESSION: Normal bilateral cervical carotid and vertebral arteries. Electronically Signed: Manjit Saleem MD at 21:07 EDT , Service support , Dr. Farr- Neurology Operations: None Procedures: 2-D Echocardiogram Summary of Care Provided: The patient is a 58 year old F admitted 10/16/2018 due to lightheadedness, falls. 1. Ataxia, unsteady gait, falls, LUE weakness-CVA ruled out. Brain CT on admission normal. MRI of brain shows mild to moderate diffuse atrophy, no significant white matter disease or evidence of acute infarct. Tiny old right pontine lacunar infarct. Neurology consulted during admission. Patient reports she has had these symptoms chronically for the past 10 years. Home PRN triptan regimen discontinued. Neurology recommending EMG/nerve conduction study as outpatient. Continue aspirin, statin at discharge. Follow-up with neurology in 6 weeks as outpatient. Follow-up with primary care provider in 1 week. Patient recommended to go to SNF at discharge and she strongly declined. Discharge home with home health. 2. Orthostatic hypotension-orthostatic vitals positive during admission. She received IV fluids. Recommend increased fluid intake and compression stockings bilateral lower extremities. Recommend tilt table test however patient reports she attempted this in the past and was unable to tolerate. Follow-up with primary care provider as noted above. 3. Hypertension, poorly controlled-initiated on lisinopril 10 mg daily. Will need close monitoring at discharge. Recommended patient check blood pressure twice daily and report findings to primary care provider. 4. Type 2 diabetes mellitus-continue home insulin and oral regimen. 5. Chronic migraines-home PRN triptan regimen discontinued given old stroke on MRI. PRN ibuprofen. Follow-up with neurology for further treatment recommendations if frequent migraines. 6. GERD-continue omeprazole regimen. 7. Hyperlipidemia-initiated on atorvastatin 40 mg p.o. nightly. General: Alert, Oriented x3, Cooperative HEENT: Atraumatic, PERRLA, EOMI, Normocephalic Neck: Supple, No JVD, Negative Carotid Bruits Lungs: Clear to auscultation, Normal air movement Cardiovascular: Regular rate, Regular Rhythm, Normal S1, Normal S2, No murmurs Abdomen: Bowel Sounds Present, Soft, Non Tender, Non-Distended Extremities: No clubbing, No cyanosis, No edema, Capillary Refill Less than 3 Seconds Skin: No rashes, No breakdown, Left knee abrasion, mandible abrasion Musculoskeletal: No Tenderness to Palpation of Joints or Extremities Neurological: Cranial nerves II-XII grossly intact, Bilateral upper extremity ataxia. Psych/Mental Status: Normal Affect, Appropriate Patient seen and examined prior to discharge. Physical assessment as noted above. Patient is stable for discharge with follow up recommendations as noted above. This patient was seen by JUAN MANUEL Vigil under the supervision of Dr. Og. - Physical Exam Vital Signs Temp Pulse Resp BP Pulse Ox 98.3 F 99 14 139/73 H 99 10/17/18 13:14 10/17/18 13:14 10/17/18 13:14 10/17/18 13:14 10/17/18 13:14 Oxygen Delivery Method Room Air Weight: 124 lb 8.979 oz Body Mass Index (BMI) 20.7 Finger Stick Blood Glucose 261 Orthostatic Vital Signs Start: 10/17/18 06:16 Freq: q24h Status: Active Protocol: Activity Type Activity Date Activity User E-Sign Co-Sign Detail Recorded Client Recorded Date Recorded By Document 10/17/18 04:55 PAL [id number] 10/17/18 06:18 PAL 10/17/18 04:55 Orthostatic Vitals Standing -Blood Pressure (90/60-120/80) 132/79 H -Extremity Use Right Arm -Pulse Rate (60-100) 96 Sitting -Blood Pressure (90/60-120/80) 183/108 H -Extremity Use Right Arm -Pulse Rate (60-100) 91 Lying -Blood Pressure (90/60-120/80) 213/112 H -Extremity Use Right Arm -Pulse Rate (60-100) 89 Intake and Output for Last 24 Hours 10/15/18 10/16/18 10/17/18 23:59 23:59 23:59 Intake Total 330 / 330 1164 / 1164 Output Total 600 / 600 1200 / 1200 Balance -270 / -270 -36 / -36 Laboratory Tests Past 24 Hrs 10/16/18 10/17/18 10/17/18 18:30 05:30 05:30 ESR 20 Sodium 141 Potassium 4.2 Chloride 107 Carbon Dioxide 27.0 Anion Gap 7 BUN 8 Creatinine 0.71 Estim Creat Clear Calc 76.40 Est GFR (MDRD) Af Amer 110 Est GFR (MDRD) Non-Af 91 BUN/Creatinine Ratio 11.3 Glucose 278 H Calcium 8.9 Magnesium 1.7 Triglycerides 124 Cholesterol 119 LDL Cholesterol 44 VLDL Cholesterol 25 HDL Cholesterol 50 TSH 2.33 Urine Opiates Screen POSITIVE H Urine Methadone Screen NEGATIVE Ur Barbiturates Screen NEGATIVE Ur Phencyclidine Scrn NEGATIVE Ur Amphetamines Screen NEGATIVE U Methamphetamin-MDMA NEGATIVE U Benzodiazepines Scrn NEGATIVE Urine Cocaine Screen NEGATIVE U Cannabinoids Screen NEGATIVE Ur Drug Screen Comment POC Glucose 10/17/18 10/17/18 10/16/18 11:02 06:39 21:08 POC Glucose 331 H 252 H 263 H Discharge Diet: Low fat/ Low Cholesterol, - - Increase fluid intake Discharge Activity: Return to Normal Activity Call your doctor if you observe: Shortness of breath, Dizziness, Fainting spells, Chest pain Home Medications: Medications to take at Discharge Dulaglutide [Trulicity] 1.5 mg SQ SA 10/04/18 Gabapentin [Neurontin] 300 mg PO QHS 10/04/18 Insulin Glulisine [Apidra Solostar] See Protocol SQ 4X/DAY 10/04/18 Meclizine HCl 25 mg PO Q6H PRN PRN 10/04/18 Metformin HCl [Metformin ER Gastric] 500 mg PO DAILY 10/04/18 Ibuprofen [Advil] 400 mg PO Q6H PRN PRN 10/16/18 Omeprazole [Prilosec] 20 mg PO DAILY 10/16/18 Sitagliptin Phosphate [Januvia] 100 mg PO DAILY 10/16/18 Aspirin [Aspirin, Baby] 81 mg PO DAILY@0800 #30 tab.chew 10/17/18 Atorvastatin Calcium [Lipitor] 40 mg PO QHS #30 tab 10/17/18 Lisinopril [Zestril] 10 mg PO DAILY #30 tab 10/17/18 Following Prescrptions Were Given to Patient: Aspirin [Aspirin, Baby] 81 mg PO DAILY@0800 #30 tab.chew Transmission Status: Received by [facility] Atorvastatin Calcium [Lipitor] 40 mg PO QHS #30 tab Transmission Status: Received by [facility] Lisinopril [Zestril] 10 mg PO DAILY #30 tab Transmission Status: Received by [facility] Primary Care Physician: Dennys Serrano MD [Primary Care Provider] - 1-2 Days if not improving Please follow up with your Primary Care Physician in: 1 Week Please Follow Up With: Leia Farr MD When: 6 Weeks Patient Instructions: HYPERTENSION, To Be Confirmed, HYPOTENSION, Orthostatic Disposition: Home with Home Health Minutes spent on discharge:: 35 Patient Condition:: Stable Medical Necessity - Tobacco Use Smoking Status: Never smoker Tobacco Use: Non-smoker Meaningful Use Info Meaningful Use Diagnoses (Choose all that apply): None applicable <Mauro Og F - Last Filed: 10/17/18 15:07> Discharge Date and Diagnosis - Secondary Discharge Diagnosis Chronic Problems Migraine without aura (Chronic) Vertigo (Chronic) Gastroparesis due to DM (Chronic) Benign Prostatic Hypertrophy w o LUTS (Chronic) HTN (hypertension) (Chronic) HLD (hyperlipidemia) (Chronic) Occlusion of carotid artery without cerebral infarction (Chronic) Post-concussion syndrome (Chronic) History of orthostatic hypotension (Chronic) Type II diabetes mellitus (Chronic) Hospital Course and Treatment Summary of Care Provided: The patient is a 58 year old F [] - Physical Exam Vital Signs Temp Pulse Resp BP Pulse Ox 98.3 F 99 14 139/73 H 99 10/17/18 13:14 10/17/18 13:14 10/17/18 13:14 10/17/18 13:14 10/17/18 13:14 Oxygen Delivery Method Room Air Weight: 124 lb 8.979 oz Body Mass Index (BMI) 20.7 Finger Stick Blood Glucose 261 Orthostatic Vital Signs Start: 10/17/18 06:16 Freq: q24h Status: Active Protocol: Activity Type Activity Date Activity User E-Sign Co-Sign Detail Recorded Client Recorded Date Recorded By Document 10/17/18 04:55 PAL [id number] 10/17/18 06:18 PAL 10/17/18 04:55 Orthostatic Vitals Standing -Blood Pressure (90/60-120/80) 132/79 H -Extremity Use Right Arm -Pulse Rate (60-100) 96 Sitting -Blood Pressure (90/60-120/80) 183/108 H -Extremity Use Right Arm -Pulse Rate (60-100) 91 Lying -Blood Pressure (90/60-120/80) 213/112 H -Extremity Use Right Arm -Pulse Rate (60-100) 89 Intake and Output for Last 24 Hours 10/15/18 10/16/18 10/17/18 23:59 23:59 23:59 Intake Total 330 / 330 1164 / 1164 Output Total 600 / 600 1200 / 1200 Balance -270 / -270 -36 / -36 Laboratory Tests Past 24 Hrs 10/16/18 10/17/18 10/17/18 18:30 05:30 05:30 ESR 20 Sodium 141 Potassium 4.2 Chloride 107 Carbon Dioxide 27.0 Anion Gap 7 BUN 8 Creatinine 0.71 Estim Creat Clear Calc 76.40 Est GFR (MDRD) Af Amer 110 Est GFR (MDRD) Non-Af 91 BUN/Creatinine Ratio 11.3 Glucose 278 H Calcium 8.9 Magnesium 1.7 Triglycerides 124 Cholesterol 119 LDL Cholesterol 44 VLDL Cholesterol 25 HDL Cholesterol 50 TSH 2.33 Urine Opiates Screen POSITIVE H Urine Methadone Screen NEGATIVE Ur Barbiturates Screen NEGATIVE Ur Phencyclidine Scrn NEGATIVE Ur Amphetamines Screen NEGATIVE U Methamphetamin-MDMA NEGATIVE U Benzodiazepines Scrn NEGATIVE Urine Cocaine Screen NEGATIVE U Cannabinoids Screen NEGATIVE Ur Drug Screen Comment POC Glucose 10/17/18 10/17/18 10/16/18 11:02 06:39 21:08 POC Glucose 331 H 252 H 263 H Code Visit Addendum: Dr. Og I personally examined the patient and reviewed the chart. I agree with the above. 58-year-old female presented to the emergency room with lightheadedness and dizziness which has been chronic for the last 10 years after she had a trauma at work. At that time she sustained a head injury and has since had postconcussive symptoms. MRI did not show a stroke and neurology did not feel that she had a stroke. She also demonstrated orthostasis with significantly elevated blood pressures that we will start her on lisinopril, and she will need outpatient follow-up for. She has also tried to have a tilt table study in the past which she was unable to tolerate. She will follow-up with neurology in 6 weeks, will plan to discharge her with home health. OBSV E&M: [id number] Observation care discharge
--- NOTE | 2018-10-17 14:44 | CASEMGMT ---
SW was told patient's mom about a month ago and she is not coping well. SW went to talk with patient and numerous family members were present. ASHANTI introduced self and role at [facility]. ASHANTI offered her information on [facility] and a list of mental health agencies in the area. She thanked ASHANTI for the information. Heike BENNETT MSW
== END 2018-10-17 16:27 | disposition home or self-care (01) ==
LOC: ED 12:13 → PCU 16:27
PROVIDERS: Nurse Practitioner Family; Psychiatry & Neurology Neurology; Admitting Provider Internal Medicine; Emergency Provider Emergency Medicine; Family Provider Family Medicine; PCP Family Medicine; Referring Provider Internal Medicine; Visit Provider Family Medicine
DX: R27.0 Ataxia, unspecified (principal); I95.1 Orthostatic hypotension; I10 Essential (primary) hypertension; K21.9 Gastro-esophageal reflux disease without esophagitis; E78.5 Hyperlipidemia, unspecified; E11.43 Type 2 diabetes mellitus with diabetic autonomic (poly)neuropathy; K31.84 Gastroparesis; G43.909 Migraine, unspecified, not intractable, without status migrainosus; Z79.4 Long term (current) use of insulin; Z79.899 Other long term (current) drug therapy; E87.6 Hypokalemia
CPT/HCPCS: 36415; 70450; 70544; 70547; 70551; 72141; 80048; 80061; 80307; 82962; 83735; 84443; 85025; 85652; 93005; 93306; 94762; 96361; 96372; 96374; 96375; 96376; 97163; 97165; 97802; 99218; 99285; J7030; A4216; G0378; J2405

== ENCOUNTER 2018-12-17 11:08 | Emergency (ER) | payer MEDICAID, SELFPAY ==
[2018-10-16 17:47] VITALS: BMI 20.7
[2018-12-17 11:09] VITALS: BP 118/70; PULSE 82; RESP 17; TEMP 36.8; O2SAT 99; BMI 20.6
--- NOTE | 2018-12-17 11:35 | EKG12_ITS ---
Test Reason : ABN LABS Blood Pressure : / mmHG Vent. Rate : 083 BPM Atrial Rate : 083 BPM P-R Int : 140 ms QRS Dur : 094 ms QT Int : 386 ms P-R-T Axes : 053 056 060 degrees QTc Int : 453 ms Sinus rhythm with occasional Premature ventricular complexes Otherwise normal ECG Confirmed by DAVID AMEZCUA, TED ([id number]), associate entertainment editor RAFI DOMINGO ([id number]) on 12/19/2018 1:42:03 PM Referred By: HERNANDO/OCTAVIANO Confirmed By:JUSTUS HERNANDEZ MD
--- NOTE | 2018-12-17 11:35 | ED.VIS.GEN ---
History of Present Illness Chief Complaint: Abn Labs Detail of Chief Complaint: Low potassium Informant: Patient Narrative: Patient reported was sent in by PCP for low potassium. She had blood work drawn yesterday after her doctor's visit which revealed potassium of 2.7. Patient was recently in [facility] for rehab secondary to orthostatic blood pressure problems. She had multiple medication adjustments made at that time. She is been home for the past 3 weeks with no recent changes to her meds. She denies being on a diuretic. She denies problems with her potassium in the past. She states overall she feels weak, but is improving when compared to prior. Past Medical History - Allergies and Home Meds Allergies/Adverse Reactions: Allergies metformin Adverse Reaction (Verified 12/17/18 11:09) Diarrhea Primary Care Physician: Dennys Serrano MD [Primary Care Provider] - 5-7 Days Prior records reviewed: Yes Past Medical History: - - Reviewed Surgical History: cholecystectomy, - - TMJ surgery Smoking Status: Never smoker - Family History Maternal Family History: Reports: - - Recently passed, August 2017 secondary to complications from Alzheimer's disease Paternal Family History: Reports: - - Emphysema, lymphoma Review of Systems General: Denies: Chills, Fever Eyes: Denies: Visual changes - bilaterally ENT: Denies: Bilateral ear pain Cardiovascular: Denies: Chest pain Respiratory: Denies: Dyspnea Gastrointestinal: Denies: Abdominal pain Genitourinary: Denies: Dysuria Skin: Denies: Rash Neurological: Reports: Weakness - Dentalized weakness Hematologic: Denies: Easy bruising, Easy bleeding Allergy: Denies: Uticaria Physical Exam Vital Signs/Narrative: Vital Signs Temp Pulse Resp BP Pulse Ox 12/17/18 11:09 98.2 F 82 17 118/70 99 Inital Vital Signs reviewed: Yes General: Well nourished ENT: Moist mucous membranes Neck: Supple Cardiovascular: Regular rate, Regular rhythm Respiratory: No distress, CTA bilaterally Abdomen: Soft, Nontender Extremities: Nontender Skin: Normal color, No rash Neurological: Alert, Oriented x3 Psychological: Normal affect Diagnostic/Tx/Re-eval Laboratory Results 12/17/18 12/17/18 11:45 11:45 WBC 5.2 RBC 3.75 L Hgb 11.0 L Hct 32.4 L MCV 86.4 MCH 29.3 MCHC 34.0 RDW Std Deviation 39.8 RDW Coeff of Chris 12.7 Plt Count 276 MPV 9.3 Immature Gran % (Auto) 0.200 Neut % (Auto) 58.9 Lymph % (Auto) 28.5 [place] % (Auto) 5.6 Eos % (Auto) 6.2 H Baso % (Auto) 0.6 Absolute Neuts (auto) 3.1 Absolute Lymphs (auto) 1.48 Nucleated RBC % 0 Sodium 143 Potassium 2.6 L* Chloride 103 Carbon Dioxide 39.0 H Anion Gap 1 L BUN 12 Creatinine 0.87 Estim Creat Clear Calc 64.11 Est GFR (MDRD) Af Amer 86 Est GFR (MDRD) Non-Af 71 BUN/Creatinine Ratio 13.8 Glucose 72 L Calcium 8.5 - EKG Initial EKG Interpretation: Sinus Rhythm - Sinus at 83 with single PVC noted on EKG. Normal QRS. - Medical Decision Making I was able to review of the patient's labs in clinic sink and did verify that her potassium was 2.7 yesterday. She was given 40 mEq of potassium orally while we were waiting her repeat labs today. Potassium did return at 2.6. In addition to the 40 mEq she was initially given, she was given 40 mg IV. Patient will be given prescription for potassium supplement and is to have her level rechecked in 2 days. Patient voices understanding and agreement. Patient's medication list is reviewed. The only medication I see that could cause hypokalemia is Florinef. Patient will need to have repeat labs performed to ensure she is maintaining her potassium level at an appropriate level. ED Disposition - Plan for ED Patient: Disposition: Home or Assisted Living Diagnosis: Hypokalemia Instructions: Hypokalemia Prescriptions: Potassium Chloride [K-Dur] 20 meq PO BID #10 tab Prescription Printed Referrals: Dennys Serrano MD [Primary Care Provider] - 5-7 Days Additional Instructions: Have your labs rechecked on Saturday. Follow-up with Dr. Serrano or physician's campus administrative assistant early next week.
[2018-12-17 12:02] LABS: Absolute Lymphocyte Count 1.48 X10^3/uL (0.83-4.51); Absolute Neutrophil Count 3.1 X10^3/uL (2.0-7.7); Basophil# 0.03 X10^3/uL; Basophil% 0.6 % (0-1); Eosinophil# 0.32 X10^3/uL; Eosinophils% 6.2 % (0-5); Hematocrit 32.4 % (37-47); Lymphocyte # 1.48 X10^3/ul (4.0); Lymphocyte % 28.5 % (19-41); Mean Corpuscular Hgb 29.3 pg (27.0-32.0); Mean Corpuscular Volume 86.4 fL (81-99); Mean Platelet Vol. 9.3 fl (6.2-12.0); Monocyte# 0.29 X10^3/uL; Monocyte% 5.6 % (0-10); NRBC Flagged by Analyzer 0 % (0-5); Neutrophil # 3.06 X10^3/uL (2.7-7.7); Neutrophil % 58.9 % (47-70); Platelet Count 276 K/mm3 (150-450); RBC Distribution Width CV 12.7 % (11.6-14.6); RBC Distribution Width SD 39.8 fl (35.1-43.9); Red Blood Count 3.75 M/mm3 (4.2-5.4); White Blood Count 5.2 K/mm3 (4.4-11.0)
[2018-12-17 12:08] VITALS: PULSE 84; RESP 15; O2SAT 100
[2018-12-17 12:20] LABS: BUN 12 mg/dL (7-18); BUN/Creat Ratio 13.8 RATIO (10-20); Calcium,Total 8.5 mg/dL (8.5-10.1); Chloride 103 mmol/L (98-107); Creatinine, Serum 0.87 mg/dL (0.55-1.02); EST Glomerular Filtration Rate 71 mL/min (>60); Est Glom Filt Rate - Afr Amer 86 mL/min (>60); Estimated Creatinine Clearance 64.11 ml/min; Glucose 72 mg/dL (74-106); Potassium 2.6 mmol/L (3.5-5.1); Sodium Level 143 mmol/L (136-145)
[2018-12-17 12:21] LABS: Anion Gap 1 (5-15)
[2018-12-17] MEDS: Potassium Chloride 10mEq/100mL 10 MEQ/100 ML IV.SOLN. 100 MEQ IV BOLUS ×4 (13:09→16:31)
[2018-12-17 14:00] VITALS: BP 187/118; PULSE 87; RESP 21; O2SAT 98
[2018-12-17 16:00] VITALS: BP 208/119; PULSE 88; RESP 12; O2SAT 97
[2018-12-17] MEDS: cloNIDine HCl 0.1 MG Tablet 0.2 MG PO (16:57)
[2018-12-17 17:09] VITALS: BP 113/94; PULSE 90; RESP 14; O2SAT 98
[2018-12-17 18:27] VITALS: BP 113/94; PULSE 89; RESP 16; TEMP 36.3; O2SAT 98
== END 2018-12-17 18:10 | disposition home or self-care (01) ==
PROVIDERS: Emergency Provider Emergency Medicine; Family Provider Family Medicine; PCP Family Medicine
DX: E87.6 Hypokalemia (principal)
CPT/HCPCS: 80048; 85025; 93005; 99285; J7030; A4216

== ENCOUNTER 2019-02-09 12:42 | Emergency (ER) | payer MEDICAID, SELFPAY ==
[2019-02-09 12:44] VITALS: BP 126/81; PULSE 89; RESP 12; TEMP 36.7; O2SAT 99; BMI 21.2
--- NOTE | 2019-02-09 13:11 | EKG12_ITS ---
Test Reason : Blood Pressure : / mmHG Vent. Rate : 090 BPM Atrial Rate : 090 BPM P-R Int : 170 ms QRS Dur : 086 ms QT Int : 342 ms P-R-T Axes : 082 050 065 degrees QTc Int : 418 ms Sinus rhythm with Premature supraventricular complexes Otherwise normal ECG Confirmed by ALYSSIA AMEZCUA, KARLA ([id number]), tape editor PRAVEEN NUNEZ ([id number]) on 02/10/2019 1:53:22 PM Referred By: YURI Confirmed By:KARLA CADE MD
--- NOTE | 2019-02-09 13:37 | ED.DCSUM_ITS ---
- ER Visit Summary Date of Service: 02/09/19 Chief Complaint: Fatigue History of Present Illness: The patient is a 58 F who states that over the weekend she was taken her blood pressure quite often been noticed that it was sometimes high systolically and low diastolically it was very variable. States she is feeling count a week and would have intermittently have some chest pressure. Home health care came to see her today she made mention of this they told her that she should probably not go to pain management but to contact her doctor she contacted her doctor and they told her to come to emergency. She said no syncope. She has a history of orthostatic hypotension. Diabetes. Hypertension hypercholesterolemia gastroparesis. No fevers. She did have an episode of emesis yesterday. Patient was at [facility] recently due to a orthostatic hypotension she states he seemed to have gotten the blood pressure she figured out mostly and while she was there her blood sugars were running around 200. She states that due to her inability to go out and go shopping due to financial restraints has been losing the pantry. Resulted in her not having the best diabetic food which has resulted now for the past 3 weeks for her blood sugars to be running around 400. She tells me that she sees Dr. Serrano and parachute/combatant diver officer in [place]. She has upcoming appointments with them. Physical Examination: Afebrile vital signs are stable Gen: Well-nourished well-developed Head: Normocephalic atraumatic Eyes: Perrl EOMI ENT: TMs clear no rhinorrhea moist mucous membranes Neck: Supple no lymphadenopathy no JVD nontender CVS: Regular rate rhythm no murmurs normal S1-S2 Respiratory: No distress clear to auscultation bilaterally chest nontender Abdomen: Soft nontender nondistended normal bowel sounds no masses Back: Nontender Extremity: Nontender no edema Skin: Normal color no rash Neuro: alert orientated ?3 CN II-XII intact normal strength sensation reflexes gait cerebellar Psych: Normal affect normal mood Test Results: EKG demonstrates a sinus rhythm with PACs at a rate of 90. Hemoglobin 11.5. Blood sugar 435 BUN 32 creatinine 1.40. Anion gap is 9 CO2 26. Troponin negative. Urinalysis there is no overt infection. Emergency Department Course and Treatment: Orthostatics technically negative through we did see a drop in her blood pressure with standing but still in the normal range but no compensatory rise in her heart rate. She received a liter of fluids has been resting comfortably. She is comfortable going home. She understands follow-up the need to get her blood sugars under control she states it is very difficult for her right now but she is working on it. I am not going to aggressively lower her blood pressure as it has been 3 weeks with it being elevated and is going to be not a quick fix to keep it lower as she describes it. Impression: 1. Fatigue 2 diabetic hyperglycemia This note was generated with [employer] dictation software. It may contain incorrect words, spelling, and punctuation that were not noted in review of the chart prior to signing ED Disposition - Plan for ED Patient: Disposition: Home or Assisted Living Instructions: WEAKNESS, Unk Cause, ED Diabetic Hyperglycemia Referrals: Dennys Serrano MD [Primary Care Provider] - As soon as possible
[2019-02-09] MEDS: 0.9% Normal Saline 1,000 ML 1000 ML IV (13:46)
[2019-02-09 13:48] LABS: Absolute Lymphocyte Count 1.41 X10^3/uL (0.83-4.51); Absolute Neutrophil Count 4.2 X10^3/uL (2.0-7.7); Basophil# 0.03 X10^3/uL; Basophil% 0.5 % (0-1); Eosinophil# 0.07 X10^3/uL; Eosinophils% 1.2 % (0-5); Hematocrit 34.3 % (37-47); Hemoglobin 11.5 g/dL (12.0-15.0); Lymphocyte # 1.41 X10^3/ul (4.0); Lymphocyte % 23.4 % (19-41); Mean Corp Hgb Conc 33.5 g/dL (32-36); Mean Corpuscular Hgb 29.7 pg (27.0-32.0); Mean Corpuscular Volume 88.6 fL (81-99); Mean Platelet Vol. 10.6 fl (6.2-12.0); Monocyte# 0.28 X10^3/uL; Monocyte% 4.7 % (0-10); NRBC Flagged by Analyzer 0 % (0-5); Neutrophil # 4.21 X10^3/uL (2.7-7.7); Neutrophil % 69.9 % (47-70); Platelet Count 230 K/mm3 (150-450); RBC Distribution Width CV 12.4 % (11.6-14.6); RBC Distribution Width SD 40.1 fl (35.1-43.9); Red Blood Count 3.87 M/mm3 (4.2-5.4)
[2019-02-09 13:51] VITALS: BP 118/67; BP 160/97; BP 182/95; PULSE 91; PULSE 92
[2019-02-09 14:43] VITALS: BP 185/98; PULSE 90; RESP 14; O2SAT 98
[2019-02-09 14:51] LABS: Anion Gap 9 (5-15); BUN 32 mg/dL (7-18); BUN/Creat Ratio 22.9 RATIO (10-20); Calcium,Total 9.4 mg/dL (8.5-10.1); Chloride 100 mmol/L (98-107); EST Glomerular Filtration Rate 41 mL/min (>60); Est Glom Filt Rate - Afr Amer 50 mL/min (>60); Estimated Creatinine Clearance 40.38 ml/min; Glucose 435 mg/dL (74-106); Potassium 5.1 mmol/L (3.5-5.1); Sodium Level 135 mmol/L (136-145)
[2019-02-09 15:11] LABS: Bedside Glucose 412 mg/dL (70-110)
[2019-02-09 15:20] LABS: Mucous, Urine 0 SEEN /hpf (<or=2+); Red Blood Cells-Urine 0 SEEN /hpf (0-5)
[2019-02-09 15:22] LABS: Color, Urine Yellow (Yellow); Glucose, Dipstick 1000 mg/dl (Normal); Ketone-Dipstick 5 mg/dl (Negative); Leukocyte Esterase-Dipstick 25 /ul (Negative); Nitrite-Dipstick Negative (Negative); Occult Blood-Urine Negative /ul (Negative); Protein-Dipstick Negative (Negative); Urine Bilirubin Dipstick Negative (Negative); Urine Clarity Sl. Cloudy (Clear); Urine Urobilinogen Normal (Normal)
[2019-02-09 15:33] LABS: Bacteria RARE /hpf (None Seen); Squamous Epithelial Cells - UA 0-5 SEEN /hpf (5-10); Transitional Epithelial - Ur 0-5 SEEN /hpf (0-5); White Blood Cells 0-5 SEEN /hpf (0-5)
== END 2019-02-09 15:49 | disposition home or self-care (01) ==
PROVIDERS: Emergency Provider Emergency Medicine; Family Provider Family Medicine; PCP Family Medicine
DX: R53.83 Other fatigue (principal); E11.65 Type 2 diabetes mellitus with hyperglycemia; I10 Essential (primary) hypertension; E78.00 Pure hypercholesterolemia, unspecified; R07.89 Other chest pain; R11.2 Nausea with vomiting, unspecified; E11.9 Type 2 diabetes mellitus without complications; K31.84 Gastroparesis
CPT/HCPCS: 80048; 81001; 82962; 84484; 85025; 93005; 99285; J7030; A4216

== ENCOUNTER → 2019-04-09 11:25 | Outpatient (CLI) | payer MEDICAID, SELFPAY ==
[2019-02-17 13:58] VITALS: BMI 20.1
--- NOTE | 2019-04-09 11:35 | RAD_ITS ---
STUDY: X-RAY - CERVICAL SPINE REASON FOR EXAM: Female, 58 years old. NECK PAIN AND RIGHT ARM PAIN -- HX OF HEAD INJURY 10 YRS AGO AND ARM CRUSH INJURY TECHNIQUE: 3 view(s) of the cervical spine were obtained. COMPARISON: Prior cervical MRI of October 16, 2018 FINDINGS: Normal anterior atlantoaxial articulation. Normal odontoid process. Normal cervical lordosis. Normal vertebral bodies and endplates. Mild posterior disc osteophyte at C5-6. Normal posterior element alignment. The soft tissue structures are unremarkable. RAD/Cerv Spine 2 or 3 Views IMPRESSION: Normal alignment of the cervical spine. Negative for fracture, osteolytic or blastic bone lesion. Mild posterior disc osteophyte at C5-6. Otherwise normal cervical spine. Electronically Signed: Kassidy Hills MD at 17:48 EST , Service support ,
== END ==
PROVIDERS: Family Provider Family Medicine; PCP Family Medicine; Referring Provider Anesthesiology Pain Medicine; Visit Provider Anesthesiology Pain Medicine
DX: M54.2 Cervicalgia (principal); M79.603 Pain in arm, unspecified
CPT/HCPCS: 72040

== ENCOUNTER → 2019-04-21 12:44 | Outpatient (CLI) | payer MEDICAID, SELFPAY ==
[2019-02-17 13:58] VITALS: BMI 20.1
--- NOTE | 2019-04-21 12:45 | STE_ITS ---
Reason For Study: chest pain Stress Results Protocol: Dobtuamine Stress Echo Maximum Predicted HR: 164 bpm Target HR: 139 bpm % Maximum Predicted HR: 81 % DurationHeart Rate Stage (mm:ss) (bpm) BP Dose Comment baseline 80 140/77 stage 1 3:16 80 143/7810.00 stage 2 3:00 110 179/7820.00 stage 3 3:00 121 158/7030.00 stage 4 9:49 133 112/6140.001 mg atropine total given recovery 89 108/70 Stress Duration: 19:05 mm:ss Maximum Stress HR: 133 bpm Baseline Echocardiogram Findings The estimated ejection fraction is 65 %. Stress Echo Wall motion Data Resting WM Intermediate WM Stress WM Resting Wall Motion Wall Motion Stress No regional wall motion No regional wall motion abnormalities noted. abnormalities noted. EKG Data The baseline ECG displays normal sinus rhythm. The patient was titrated from 10 mcg to a maximum of 40 mcg of dobutamine during the stress. The maximum heart rate attained was 133 beats per minute. This was 81% of maximum predicted heart rate. During dobutamine infusion, there were no ST or T wave changes noted to suggest ischemia. No clinical angina was noted. Interpretation Summary The estimated ejection fraction is 65 %. Normal, adequate, dobutamine echocardiogram. Negative for ischemia by EKG and echocardiographic criteria. No anginal symptoms noted. Rare PVC noted. Appropriate blood pressure response to dobutamine. Final LVEF is 75%. Although patient did not quite reach target heart rate she had an excellent rate pressure product of 18,012. Patient tolerated procedure well. No complications. Ordering Physician: Florentino López Referring Physician: Florentino López Performed By: Jacqueline Aragon RDCS
== END ==
PROVIDERS: Family Provider Family Medicine; PCP Family Medicine; Referring Provider Internal Medicine Cardiovascular Disease; Visit Provider Internal Medicine Cardiovascular Disease
DX: R07.9 Chest pain, unspecified (principal); E11.9 Type 2 diabetes mellitus without complications; E78.5 Hyperlipidemia, unspecified; Z86.79 Personal history of other diseases of the circulatory system
CPT/HCPCS: 93017; 93350; J7040; A4216

== ENCOUNTER 2019-05-04 13:55 | Emergency (ER) | payer MEDICAID, SELFPAY ==
[2019-02-17 13:58] VITALS: BMI 20.1
[2019-05-04 13:59] VITALS: BP 95/63; PULSE 77; RESP 13; TEMP 36.6; O2SAT 97; BMI 20.1
--- NOTE | 2019-05-04 14:06 | EKG12_ITS ---
Test Reason : FELL Blood Pressure : / mmHG Vent. Rate : 077 BPM Atrial Rate : 077 BPM P-R Int : 144 ms QRS Dur : 092 ms QT Int : 372 ms P-R-T Axes : 026 070 075 degrees QTc Int : 420 ms Normal sinus rhythm Nonspecific T wave abnormality Abnormal ECG Confirmed by YUMIKO AMEZCUA, TOMAS ([id number]), metropolitan editor RAFI DOMINGO ([id number]) on 05/06/2019 8:59:13 AM Referred By: MARCELL Confirmed By:TOMAS CALDERON MD
--- NOTE | 2019-05-04 14:07 | RAD_ITS ---
STUDY: X-RAY CHEST REASON FOR EXAM: Female, 58 years old. FALL, LEFT FLANK PAIN OF LOWER RIBS TECHNIQUE: AP and lateral views of the chest. COMPARISON: None. FINDINGS: EKG electrodes are seen. The lungs are clear and expanded. There is no demonstrated pleural abnormality. Normal size heart. Normal mediastinum and emily. Normal visualized pulmonary arteries. Normal visualized aortic arch and descending thoracic aorta. Normal visualized thoracic spine. Normal visualized ribs, clavicles, and shoulders. There is no demonstrated abnormality of the visualized soft tissue structures of the upper abdomen. RAD/Chest PA and Lateral IMPRESSION: Normal x-ray examination of the chest. Electronically Signed: Angel Manley, at 15:00 EST , Service support ,
--- NOTE | 2019-05-04 14:08 | ED.DCSUM_ITS ---
History of Present Illness Chief Complaint: Fall Informant: Patient Onset: Today Context: Sudden Onset Timing: Intermittent Quality: Orthostatic symptoms and diarrhea Location: Home Current Severity: Mild Maximum Severity: Severe Worsened by: Diarrhea and standing Relieved by: None Associated Symptoms: Fall secondary to lightheadedness Narrative: Patient is a middle-age woman with history of orthostatic hypotension who reports having profuse diarrhea that started Saturday. She has a diaper on because of inability to control diarrhea. She denies blood or mucus. She denies vomiting. She is on no anticoagulant. She fell twice. She states the last time she fell she fell between a cabinet and commode. She complains of left rib cage pain. Denies head trauma. Denies loss conscious. Denies neck pain. She denies paresthesia, anesthesia or motor weakness. She denies blood in her urine. Prior similar symptoms: Yes Recent Illness/Hospitalization: No - Past Medical History (1) Balance problem Status: Acute (2) Hypokalemia Status: Acute (3) Essential hypertension Status: Chronic (4) HLD (hyperlipidemia) Status: Chronic (5) History of orthostatic hypotension Status: Chronic (6) Migraine without aura Status: Chronic (7) Post-concussion syndrome Status: Chronic (8) Type II diabetes mellitus Status: Chronic Past Medical History - Allergies and Home Meds Allergies/Adverse Reactions: Allergies metformin Adverse Reaction (Verified 05/04/19 13:56) Diarrhea Primary Care Physician: Dennys Serrano MD [Primary Care Provider] - Prior records reviewed: Yes Surgical History: cholecystectomy, - - TMJ surgery Lives: Alone Smoking Status: Never smoker Alcohol: None Drugs: None - Family History Maternal Family History: Family History (Last Reviewed 02/17/19 @ 13:58 by Kathie Duran) Mother Hypertension Father Cancer Emphysema of lung Grandmother Diabetes Family History: Reports: - - Recently passed, August 2017 secondary to complications from Alzheimer's disease Paternal Family History: Family History (Last Reviewed 02/17/19 @ 13:58 by Kathie Duran) Mother Hypertension Father Cancer Emphysema of lung Grandmother Diabetes Family History: Reports: - - Emphysema, lymphoma Review of Systems General: Reports: Malaise. Denies: Chills, Fever, Subjective, Sweats Eyes: Denies: Visual changes - bilaterally, Blurred Vision - bilaterally ENT: Denies: Bilateral ear pain, Rhinorrhea, Sore throat Cardiovascular: Denies: Chest pain, Palpitations Respiratory: Denies: Dyspnea, Cough, Dyspnea on exertion Gastrointestinal: Reports: Diarrhea. Denies: Abdominal pain, Nausea, Vomiting, Constipation, Melena, Hematochezia, -, - Genitourinary: Denies: Dysuria, Hematuria, Frequency Musculoskeletal: Denies: Myalgias, Arthralgias, Neck pain, Back pain, Swelling, Extremity Pain Skin: Denies: Rash, Wounds Neurological: Reports: Weakness. Denies: Headache, Parasthesia Psych: Reports: Depression Hematologic: Denies: Easy bruising, Easy bleeding Physical Exam Vital Signs/Narrative: Vital Signs Temp Pulse Resp BP Pulse Ox 05/04/19 13:59 97.8 F 77 13 95/63 97 Inital Vital Signs reviewed: Yes General: Well developed, Cachectic Head: Normocephalic, Atraumatic, - - No clinical findings of basilar skull fracture.. Negative for: Trauma, Tenderness Eyes: Perrl, EOMI, - - There is no subconjunctival hemorrhage noted.. Negative for: Pale conjunctiva, Scleral icterus ENT: No rhinorrhea, Dry mucous membranes Neck: Supple, Nontender, No lymphadenopathy, No JVD Cardiovascular: Regular rate, Regular rhythm, No murmurs Respiratory: No distress, CTA bilaterally, Chest tenderness Abdomen: Soft, Nontender, Nondistended, Normal bowel sounds, No masses Back: Nontender, Normal Inspection. Negative for: CVA tenderness Extremities: Nontender, Edema - Pedal edema noted bilaterally Skin: No rash, Jaundice, No Trauma, Pallor. Negative for: Normal color, Cyanosis, Diaphoresis Neurological: Alert, Oriented x3, Cranial nerves II-XII grossly intact, Normal Strength, Normal Sensation Psychological: Depressed Diagnostic/Tx/Re-eval Chest X-Ray - ED: 2 View, Read by ED Physician, Normal, Heart, Mediastinum, Bony Structures, Chronic Changes, Left Rib Fx - Nondisplaced ninth left rib fracture without pneumothorax or hemothorax. 05/04/19 14:07 Chest PA and Lateral [RAD] Stat Laboratory Results 05/04/19 05/04/19 14:20 14:20 WBC 10.6 RBC 3.67 L Hgb 11.2 L Hct 33.1 L MCV 90.2 MCH 30.5 MCHC 33.8 RDW Std Deviation 39.8 RDW Coeff of Chris 12.2 Plt Count 263 MPV 10.6 Immature Gran % (Auto) 0.400 Neut % (Auto) 78.6 H Lymph % (Auto) 14.4 L [place] % (Auto) 5.6 Eos % (Auto) 0.6 Baso % (Auto) 0.4 Absolute Neuts (auto) 8.4 H Absolute Lymphs (auto) 1.53 Nucleated RBC % 0 Sodium 140 Potassium 4.4 Chloride 105 Carbon Dioxide 30.0 Anion Gap 5 BUN 28 H Creatinine 1.63 H Estim Creat Clear Calc 33.39 Est GFR (MDRD) Af Amer 42 L Est GFR (MDRD) Non-Af 35 L BUN/Creatinine Ratio 17.2 Glucose 201 H Calcium 9.7 - Medical Decision Making Carpenter patient is dehydrated. IV was established. She will receive 1 L of normal saline wide open. Will obtain basic metabolic panel to assess electrolytes and specifically potassium as well as renal function. X-ray of the chest was obtained to evaluate for pneumothorax and hemothorax as well as rib fracture. It was reassessed at 1510. Blood pressure was 113. Will complete present liter of fluid. She will be discharged home with prescription for Malo. ED Disposition - Plan for ED Patient: Disposition: Home or Assisted Living Diagnosis: Left rib fracture, Autonomic orthostatic hypotension, Dehydration, Diarrhea Instructions: FRACTURE, Rib, DEHYDRATION (8y-Adult) Prescriptions: Oxycodone HCl/Acetaminophen [Percocet 5/325] 1 tablet PO Q6H PRN PRN 5 Days #20 tablet PRN Reason: Chest pain Transmission Status: Received by [id number] Referrals: Dennys Serrano MD [Primary Care Provider] - 1 Week if not improving
[2019-05-04] MEDS: 0.9% Normal Saline 1,000 ML 1000 ML IV (14:26)
[2019-05-04 14:32] LABS: Absolute Lymphocyte Count 1.53 X10^3/uL (0.83-4.51); Absolute Neutrophil Count 8.4 X10^3/uL (2.0-7.7); Basophil# 0.04 X10^3/uL; Basophil% 0.4 % (0-1); Eosinophil# 0.06 X10^3/uL; Eosinophils% 0.6 % (0-5); Hematocrit 33.1 % (37-47); Hemoglobin 11.2 g/dL (12.0-15.0); Lymphocyte # 1.53 X10^3/ul (4.0); Lymphocyte % 14.4 % (19-41); Mean Corp Hgb Conc 33.8 g/dL (32-36); Mean Corpuscular Hgb 30.5 pg (27.0-32.0); Mean Corpuscular Volume 90.2 fL (81-99); Mean Platelet Vol. 10.6 fl (6.2-12.0); Monocyte# 0.59 X10^3/uL; Monocyte% 5.6 % (0-10); NRBC Flagged by Analyzer 0 % (0-5); Neutrophil # 8.36 X10^3/uL (2.7-7.7); Neutrophil % 78.6 % (47-70); Platelet Count 263 K/mm3 (150-450); RBC Distribution Width CV 12.2 % (11.6-14.6); RBC Distribution Width SD 39.8 fl (35.1-43.9); Red Blood Count 3.67 M/mm3 (4.2-5.4); White Blood Count 10.6 K/mm3 (4.4-11.0)
[2019-05-04 14:48] LABS: Anion Gap 5 (5-15); BUN 28 mg/dL (7-18); BUN/Creat Ratio 17.2 RATIO (10-20); Calcium,Total 9.7 mg/dL (8.5-10.1); Chloride 105 mmol/L (98-107); Creatinine, Serum 1.63 mg/dL (0.55-1.02); EST Glomerular Filtration Rate 35 mL/min (>60); Est Glom Filt Rate - Afr Amer 42 mL/min (>60); Estimated Creatinine Clearance 33.39 ml/min; Glucose 201 mg/dL (74-106); Potassium 4.4 mmol/L (3.5-5.1); Sodium Level 140 mmol/L (136-145)
[2019-05-04 15:02] LABS: Lactic Acid 1.4 mmol/L (0.4-1.9)
--- NOTE | 2019-05-04 16:10 | CM.ED ---
SOCIAL WORK INFORMANT: NURSE REASON FOR REFERRAL: RESOURCES MET WITH PATIENT IN ROOM. INTRODUCED ROLE AND REASON FOR REFERRAL. PATIENT STATES LIVES HOME ALONE AND FILED FOR SSI. PATIENT STATES THE PROCESS IS TAKING A LONG TIME AND KNOWS IT IS CURRENTLY UNDER MEDICAL EVALUATION. PATIENT HAS NOT BEEN WORKING SINCE AUGUST D/T MEDICAL ISSUES. PATIENT REPORTS HAS [employer] INS[employer]ANCE AND RECEIVES FOOD STAMPS. PATIENT HAS RECEIVED ASSISTANCE FROM PEOPLE TO PEOPLE AND HER [employer] IN THE PAST. PATIENT HAS BEEN IN CONTACT WITH INVESTMENT SPECIALIST, [facility]OUGH [facility] REGARDING DME AND HAS NOT HEARD BACK. PATIENT GIVEN INFORMATION ON LOCAL RESOURCES AND INFORMED PATIENT THIS WORKER WILL FOLLOW UP WITH INVESTMENT SPECIALIST REGARDING NEEDS. ED PERSONNEL ADVISER SET UP TRANSPORTATION HOME FOR PATIENT. PLAN: HOME WITH RESOURCES PROVIDED. MANUELA ZUNIGA, CIVIL DESIGN SPECIALIST.
--- NOTE | 2019-05-06 16:19 | CM.ED ---
SOCIAL WORK FOLLOW UP CALL TO PATIENT'S REFINERY OPERATOR [facility]ROUGH [facility] [place] ([phone]). LEFT DETAILED MESSAGE REGARDING PATIENT'S NEEDS REPORTED BY PATIENT ON 05/04/19. PATIENT STATES HAS BEEN WAITING ON DME, BEDSIDE COMMODE. INCLUDED THIS WORKER'S CALL BACK INFORMATION. Prieto MONTES DE OCA MSW, ACADEMIC GUIDANCE SPECIALIST.
== END 2019-05-04 16:32 | disposition home or self-care (01) ==
PROVIDERS: Emergency Provider Emergency Medicine; PCP Family Medicine
DX: S22.32XA Fracture of one rib, left side, initial encounter for closed fracture (principal); R19.7 Diarrhea, unspecified; E86.0 Dehydration; I95.1 Orthostatic hypotension; E11.9 Type 2 diabetes mellitus without complications; E78.5 Hyperlipidemia, unspecified; I10 Essential (primary) hypertension; Z82.49 Family history of ischemic heart disease and other diseases of the circulatory system; Z90.49 Acquired absence of other specified parts of digestive tract; W18.11XA Fall from or off toilet without subsequent striking against object, initial encounter; Y93.9 Activity, unspecified; Y92.002 Bathroom of unspecified non-institutional (private) residence as the place of occurrence of the external cause; Y99.9 Unspecified external cause status
CPT/HCPCS: 71046; 80048; 83605; 85025; 93005; 96360; 99285; J7030; A4216

== ENCOUNTER → 2019-09-14 13:21 | Outpatient (CLI) | payer MEDICAID, SELFPAY ==
[2019-09-14 14:01] LABS: Amphetamine Urine VISTA NEGATIVE (<1000 ng/mL); Barbiturate Urine VISTA NEGATIVE (< 200 ng/mL); Benzodiazepine Urine VISTA NEGATIVE (< 200 ng/mL); Cocaine Urine VISTA NEGATIVE (< 300 ng/mL); Ecstacy Urine VISTA NEGATIVE (< 500 ng/mL); Methadone Urine VISTA NEGATIVE (< 300 ng/mL); PCP Urine VISTA NEGATIVE (< 25 ng/mL); THC Urine VISTA NEGATIVE (< 50 ng/mL); Vista UDS pH Range 6
== END ==
PROVIDERS: PCP Family Medicine; Referring Provider Anesthesiology Pain Medicine; Visit Provider Anesthesiology Pain Medicine
DX: F11.20 Opioid dependence, uncomplicated (principal)
CPT/HCPCS: 80307

== ENCOUNTER 2019-11-01 08:00 | Emergency (ER) | payer MEDICAID, SELFPAY ==
[2019-09-15 14:05] VITALS: BMI 20.1
[2019-11-01 08:01] VITALS: BP 80/53; PULSE 91; RESP 16; TEMP 36.5; O2SAT 96; BMI 21.6
[2019-11-01 08:03] VITALS: BP 80/53; PULSE 91; RESP 16; TEMP 36.5; O2SAT 94
--- NOTE | 2019-11-01 08:20 | ED.VISSUMM ---
- ER Visit Summary Date of Service: 11/01/19 Chief Complaint: Wound to left heel History of Present Illness: The patient is a [address] Serrano. She does have a history of type 2 diabetes. She reports that 6 days ago she wear shoes without socks and rubbed her heel raw. States that she has a throbbing pain is 10 of 10 at worst and 7 out of 10 currently. Is worsened by walking relieved by rest. She denies any drainage from the area. She denies any constitutional symptoms. No fever, chills, nausea, or vomiting. Physical Examination: Vitals: Stable. Afebrile. General: Well-nourished and well-developed. Head: Normocephalic atraumatic. Neck: Supple, no lymphadenopathy. No JVD. Nontender. Cardiovascular: Regular rate and rhythm. No murmurs. Respiratory: No respiratory distress. Clear to auscultation bilaterally. Abdominal: Soft, nontender, nondistended, normal bowel sounds. No guarding, rebound, or peritoneal signs. Back: Nontender. Extremities: To the left heel there is approximately 6 cm area of skin avulsion to the dermis. This is weeping. However the, there is no purulent drainage. There is no surrounding erythema or induration. Skin: Normal color, no rash. Neurologic: Alert and oriented ?3. Cranial nerves II through XII are intact. Normal strength and sensation. Psych: Normal affect. Emergency Department Course and Treatment: This does not appear infected this time. However, it does appear that it could use debridement. She had a dressing placed. Treatment Plan: Patient was discussed with Dr. Sharif. She will be discharged instructions and follow-up in 2 days for a wound check. Return to the emergency department for any worsening symptoms. Disposition: To home in improved and stable condition. Impression: 1. Superficial ulcer left heel. 2. Diabetes mellitus. This note was generated with [employer] software. It may contain incorrect words, spelling, and punctuation that were not noted in review of the chart prior to signing ED Disposition - Plan for ED Patient: Disposition: Home or Assisted Living Instructions: Diabetic Foot Ulcers Referrals: Benita Sharif DPM [STAFF PHYSICIAN] - 2 Days for wound check
[2019-11-01 08:48] VITALS: BP 96/61
== END 2019-11-01 08:50 | disposition home or self-care (01) ==
PROVIDERS: Emergency Provider Emergency Medicine; PCP Family Medicine
DX: L97.429 Non-pressure chronic ulcer of left heel and midfoot with unspecified severity (principal); E11.9 Type 2 diabetes mellitus without complications
CPT/HCPCS: 99282

== ENCOUNTER 2019-11-06 23:35 | Inpatient (IN) | payer MEDICAID, SELFPAY ==
[2019-11-06 23:37] VITALS: BP 75/52; PULSE 103; RESP 20; TEMP 36.7; O2SAT 92; BMI 24.9
--- NOTE | 2019-11-06 23:49 | EKG12_ITS ---
Test Reason : CP Blood Pressure : / mmHG Vent. Rate : 110 BPM Atrial Rate : 110 BPM P-R Int : 166 ms QRS Dur : 094 ms QT Int : 330 ms P-R-T Axes : 066 053 057 degrees QTc Int : 446 ms Sinus tachycardia Otherwise normal ECG Confirmed by YUMIKO AMEZCUA, TOMAS ([id number]), editor magazine RAFI DOMINGO ([id number]) on 11/09/2019 8:57:03 AM Referred By: Rikki Jeong Confirmed By:TOMAS CALDERON MD
--- NOTE | 2019-11-06 23:50 | ED.DCSUM_ITS ---
History of Present Illness Chief Complaint: Hyperglycemia Informant: Patient Narrative: Stated since yesterday she has had 2 episodes of emesis with nausea. No blood in it. She also had loose watery diarrhea multiple episodes of started yesterday and into today. No home treatment. She denies any abdominal pain. Denies any fevers or chills or respiratory symptoms. She is a type II diabetic. Her blood sugar was high this evening. Comes in via EMS for further evaluation and treatment. She takes insulin therapy. Her last dose was earlier this morning. Denies any urinary symptoms or back pain. Denies any cough - Past Medical History (1) Dizziness Status: Acute (2) Falls Status: Acute (3) Hypokalemia Status: Acute (4) Balance problem Status: Chronic (5) Essential hypertension Status: Chronic (6) HLD (hyperlipidemia) Status: Chronic (7) History of orthostatic hypotension Status: Chronic (8) Migraine without aura Status: Chronic (9) Post-concussion syndrome Status: Chronic (10) Type II diabetes mellitus Status: Chronic (11) Vertigo Status: Chronic Past Medical History - Allergies and Home Meds Allergies/Adverse Reactions: Allergies metformin Adverse Reaction (Verified 11/06/19 23:45) Diarrhea Primary Care Physician: Dennys Serrano MD [Primary Care Provider] - Prior records reviewed: Yes Past Medical History: - - See problem list Surgical History: cholecystectomy, - - TMJ surgery Lives: With Family Smoking Status: Never smoker Alcohol: None Drugs: None - Family History Maternal Family History: Family History (Last Reviewed 02/17/19 @ 13:58 by Kathie Duran) Mother Hypertension Father Cancer Emphysema of lung Grandmother Diabetes Family History: Reports: - - Recently passed, August 2017 secondary to complications from Alzheimer's disease Paternal Family History: Family History (Last Reviewed 02/17/19 @ 13:58 by Kathie Duran) Mother Hypertension Father Cancer Emphysema of lung Grandmother Diabetes Family History: Reports: - - Emphysema, lymphoma Review of Systems General: Denies: Chills, Fever, Sweats Eyes: Denies: Visual changes - bilaterally, Diplopia ENT: Denies: Rhinorrhea, Sore throat Cardiovascular: Denies: Chest pain, Palpitations Respiratory: Denies: Dyspnea, Cough, Dyspnea on exertion Gastrointestinal: Reports: Nausea, Vomiting, Diarrhea. Denies: Abdominal pain, Melena, Hematochezia Genitourinary: Denies: Dysuria, Hematuria, Frequency Musculoskeletal: Denies: Back pain, Extremity Pain Skin: Denies: Rash, Wounds Neurological: Denies: Headache, Weakness, Numbness Physical Exam Vital Signs/Narrative: Vital Signs Temp Pulse Resp BP Pulse Ox 11/06/19 23:37 98.0 F 103 H 20 H 75/52 L 92 General: Well nourished, Well developed, No Acute Distress, - - Patient appears tired Head: Normocephalic, Atraumatic Eyes: Perrl, EOMI ENT: Moist mucous membranes, No rhinorrhea Neck: Supple, Nontender Cardiovascular: Regular rate, Regular rhythm, No murmurs Respiratory: No distress, CTA bilaterally, Chest nontender Abdomen: Soft, Nontender, Nondistended, Normal bowel sounds Back: Nontender, Normal Inspection Extremities: Nontender, No edema Skin: Normal color, No rash Neurological: Alert, Oriented x3, Cranial nerves II-XII grossly intact, Normal Strength, Normal Sensation Psychological: Normal affect, Normal Mood Diagnostic/Tx/Re-eval - Medical Decision Making Patient given IV fluids and Zofran. Lab work obtained. EKG obtained.. EKG shows sinus tachycardia rate of 110. There is peak T waves in V2 only. The rest of her lead showed no peaking of the T waves. Lab work shows a leukocytosis greater than 19,000. Potassium came back at 7.0. Creatinine is 1.9. Lactate is greater than 2. The patient appears to have severe sepsis. CT abdomen pelvis was obtained which shows a descending colitis with proctitis. There is no abscess. Atelectasis in the lower lung base. Mild thickening of the bladder wall. Urinalysis shows no evidence of infection. Patient given 3 L of IV fluid for severe sepsis. Initial blood pressure was in the 70s. It came up while over 100 for several hours. She had a transient low blood pressure that came back up after changing the cuff positioning. At this time I do not feel the patient needs pressors with a blood pressure of 116/63. Given Cipro and Flagyl for her colitis. Stool studies were ordered however she has not given a specimen at this time. Discussed with the hospitalist will be admitted to the intensive care unit for colitis, acute renal insufficiency, dehydration, hyperkalemia. The patient was treated for her hyperkalemia with calcium gluconate, albuterol, insulin, Kayexalate. I suspect her diarrhea that she was having caused the acute dehydration with hyperkalemia. Blood sugar was over 400. Insulin should bring this down. - Critical Care Time Critical care time (excluding procedures): 75-104 minutes ED Disposition - Plan for ED Patient: Disposition: Acute Care Hospital [facility] Diagnosis: Severe sepsis, Colitis, Proctitis, Renal insufficiency, Dehydration, Hyperkalemia
[2019-11-06 23:59] LABS: Absolute Lymphocyte Count 0.57 X10^3/uL (0.83-4.51); Absolute Neutrophil Count 18.3 X10^3/uL (2.0-7.7); Basophil# 0.05 X10^3/uL; Basophil% 0.3 % (0-1); Eosinophil# 0.09 X10^3/uL; Eosinophils% 0.5 % (0-5); Hematocrit 29.7 % (37-47); Hemoglobin 9.8 g/dL (12.0-15.0); Lymphocyte # 0.57 X10^3/ul (4.0); Lymphocyte % 2.9 % (19-41); Mean Corpuscular Hgb 28.8 pg (27.0-32.0); Mean Corpuscular Volume 87.4 fL (81-99); Mean Platelet Vol. 10.9 fl (6.2-12.0); Monocyte# 0.67 X10^3/uL; Monocyte% 3.4 % (0-10); NRBC Flagged by Analyzer 0 % (0-5); Neutrophil # 18.33 X10^3/uL (2.7-7.7); Neutrophil % 92.2 % (47-70); POSITIVE DIFFERENTIAL YES; POSITIVE MORPHOLOGY YES; Platelet Count 344 K/mm3 (150-450); RBC Distribution Width CV 11.8 % (11.6-14.6); RBC Distribution Width SD 37.6 fl (35.1-43.9); White Blood Count 19.8 K/mm3 (4.4-11.0)
[2019-11-07] VITALS (36 sets, daily range): BP systolic 71–154; BP diastolic 43–84; PULSE 95–113; RESP 10–22; TEMP 36.7–37.2; O2SAT 94–97; BMI 24.9
[2019-11-07] LABS: Differential Indicated SCAN CRITERIA MET
--- NOTE | 2019-11-07 00:28 | RAD_ITS ---
STUDY: X-RAY CHEST REASON FOR EXAM: Female, 59 years old. WEAKNESS AND HIGH BLOOD SUGAR AND VOMITING TECHNIQUE: Single AP portable view of the chest. COMPARISON: 05/04/2019 chest x-ray FINDINGS: The lungs are clear and expanded. There is no demonstrated pleural abnormality. Normal size heart. Normal mediastinum and emily. Normal visualized pulmonary arteries. Normal visualized aortic arch and descending thoracic aorta. Normal visualized thoracic spine. Normal visualized ribs, clavicles, and shoulders. There is no demonstrated abnormality of the visualized soft tissue structures of the upper abdomen. RAD/Chest 1 View (Portable) IMPRESSION: Normal x-ray examination of the chest. Electronically Signed: Devika Gil MD at 1:28 EDT Tel , Service support ,
[2019-11-07] MEDS: 0.9% Normal Saline 1,000 ML 1000 ML IV ×3 (00:53→02:59)
[2019-11-07] MEDS: Ondansetron 4 MG/2 ML Vial IV (00:54)
[2019-11-07 01:27] LABS: Anion Gap 6 (5-15); BUN 34 mg/dL (7-18); BUN/Creat Ratio 17.3 RATIO (10-20); Calcium,Total 8.7 mg/dL (8.5-10.1); Chloride 102 mmol/L (98-107); Creatinine, Serum 1.96 mg/dL (0.55-1.02); EST Glomerular Filtration Rate 28 mL/min (>60); Est Glom Filt Rate - Afr Amer 34 mL/min (>60); Glucose 420 mg/dL (74-106); Lactic Acid 2.6 mmol/L (0.4-1.9); Sodium Level 137 mmol/L (136-145)
--- NOTE | 2019-11-07 01:28 | CT_ITS ---
We are attempting to reach an attending provider to discuss findings. An addendum with communication details will be sent when the communication is complete. STUDY: CT ABDOMEN AND PELVIS WITHOUT CONTRAST REASON FOR EXAM: Female, 59 years old. HYPERGLYCEMIA, BS 480, EMESIS, DIAB, HTN RADIATION DOSAGE (If Supplied By Facility): CTDIvol = ( 12.07 ) mGy, DLP = ( 804.24 ) mGycm TECHNIQUE: Transaxial images were obtained from the dome of the diaphragm to the symphysis pubis without oral contrast, and without intravenous contrast. Sagittal and coronal images were reconstructed. Individualized dose optimization techniques were used for this CT. COMPARISON: 11/17/2012 FINDINGS: There is a small focus of left lower lobe atelectasis and/or small infiltrate image #21 axial views. The visualized portions of the heart are within normal limits. Normal liver. There is non-visualization of the gallbladder, which may be secondary to either contraction or a prior cholecystectomy. Normal spleen. Normal pancreas. Normal bilateral adrenal glands. There is a punctate stone in the right kidney without hydronephrosis. Normal left kidney. Normal visualized stomach. Normal small intestine. There is an edematous strandy appearance of the transverse and descending colon colon with tortuosity. There is wall thickening of the rectum and distal sigmoid colon. There is a trace amount of fluid in the left side paracolic gutter. The appendix is visualized and appears normal. There is partial calcification of the aorta. Normal inferior vena cava. Normal retroperitoneum. There is mild wall thickening of the bladder. There is atrophy of the uterus. Normal abdominal wall. The bones are osteopenic. CT/Abdomen/Pelvis without Cont IMPRESSION: Thick-walled edematous featureless appearance of the colon. Highly suspicious for diffuse colitis and proctitis. Consider inflammatory bowel disease and infectious etiology versus the possibility of pseudomembranous colitis. Given the amount of wall thickening of the rectum likely represents proctitis associated with diarrhea however atypia, is not entirely excluded. Punctate stones right kidney no evidence of hydronephrosis Mild wall thickening of the bladder consider cystitis. Status post cholecystectomy. Small focus of left lower lobe atelectasis and/or infiltrate. Electronically Signed: Devika Gil MD at 3:31 EDT Tel , Service support ,
[2019-11-07 01:40] LABS: Bacteria 0 SEEN /hpf (None Seen); Mucous, Urine 0 SEEN /hpf (<or=2+); Red Blood Cells-Urine 0 SEEN /hpf (0-5); Squamous Epithelial Cells - UA 0 SEEN /hpf (5-10); White Blood Cells 0 SEEN /hpf (0-5)
[2019-11-07 01:45] LABS: Color, Urine Yellow (Yellow); Glucose, Dipstick 250 mg/dl (Normal); Ketone-Dipstick Negative (Negative); Leukocyte Esterase-Dipstick Negative /ul (Negative); Nitrite-Dipstick Negative (Negative); Occult Blood-Urine Negative /ul (Negative); Protein-Dipstick Negative (Negative); Urine Bilirubin Dipstick Negative (Negative); Urine Clarity Clear (Clear); Urine Urobilinogen Normal (Normal)
[2019-11-07] MEDS: Albuterol 2.5 MG/3 ML VIAL.NEB. INHALATION (02:05)
[2019-11-07] MEDS: INSULIN LISPRO 3 UNIT IV (02:05)
[2019-11-07] MEDS: Calcium Gluconate 1 GM/10 ML Vial IV (02:09)
[2019-11-07] MEDS: Sodium Polystyrene Sulfonate 15 GM/60 ML UDC 30 GM PO (02:10)
--- NOTE | 2019-11-07 03:15 | ED.RN ---
Dr Hernandez made aware of patient's blood pressure.
--- NOTE | 2019-11-07 03:41 | HP.PCM_ITS ---
Problem List (1) Acute kidney injury Status: Acute (2) Severe sepsis Status: Acute (3) Colitis Status: Acute (4) Proctitis Status: Acute (5) Dehydration Status: Acute (6) Hyperkalemia Status: Acute (7) Essential hypertension Status: Chronic (8) Migraine without aura Status: Chronic (9) Vertigo Status: Chronic (10) Balance problem Status: Chronic (11) HLD (hyperlipidemia) Status: Chronic (12) Post-concussion syndrome Status: Chronic (13) History of orthostatic hypotension Status: Chronic (14) Type II diabetes mellitus Status: Chronic History of Present Illness Date of Admission: 11/07/19 Chief Complaint: Nausea, vomiting and diarrhea. The patient is a 59 year old F with a significant history of postconcussion syndrome; orthostatic hypotension and diabetes mellitus who presents to the emergency department with nausea, vomiting and diarrhea. Her symptoms started on the same day of presentation. Associated with her symptoms is chills and abdominal pain. Also her blood glucose at home was in the 400s. At the emergency patient was found to have hypotension and received normal saline bolus. Also he was found to be severely hyperkalemic Past Medical History Past Medical History (Chronic Problems): Chronic Problems (Last Reviewed 11/07/19 @ 05:[address] Rikki Jeong MD) Essential hypertension (Chronic) Migraine without aura (Chronic) Vertigo (Chronic) Balance problem (Chronic) HLD (hyperlipidemia) (Chronic) Post-concussion syndrome (Chronic) History of orthostatic hypotension (Chronic) Type II diabetes mellitus (Chronic) Medical History: Medical History (Last Reviewed 11/07/19 @ 05:[address] Rikki Jeong MD) Hypokalemia (Inactive) E87.6 Essential hypertension (Chronic) I10 Migraine without aura (Chronic) G43.009 Vertigo (Chronic) R42 Dizziness (Inactive) R42 Balance problem (Chronic) R26.89 Falls (Inactive) W19.XXXA HLD (hyperlipidemia) (Chronic) E78.5 Post-concussion syndrome (Chronic) F07.81 History of orthostatic hypotension (Chronic) Z86.79 Type II diabetes mellitus (Chronic) E11.9 Chronic pain syndrome G89.4 Malnutrition E46 Headache (Resolved) R51 Gastroparesis due to DM (Ruled-out) E11.43, K31.84 Occlusion of carotid artery without cerebral infarction (Ruled-out) I65.29 Allergies metformin Adverse Reaction (Verified 11/06/19 23:45) Diarrhea Home Medications: Ambulatory Orders Medication Instructions Recorded Aspirin [Aspirin, Baby] 81 mg PO DAILY@0800 #30 tab.chew 10/17/18 Atorvastatin Calcium [Lipitor] 40 mg PO QHS #30 tab 10/17/18 Clonidine HCl [Catapres] 0.2 mg PO TID 12/17/18 Diltiazem CD [Cardizem CD] 180 mg PO DAILY 12/17/18 Insulin Glargine [Lantus (BKC)] 20 units SUBCUT QHS 12/17/18 Insulin Lispro [Humalog KwikPen] 7 unit SQ TIDCM 12/17/18 Insulin Lispro [Humalog KwikPen] See Protocol SQ PRN PRN 12/17/18 Magnesium Oxide [Mag-Ox 400] 400 mg PO BID 12/17/18 Ondansetron [Zofran Odt] 4 mg PO Q6H PRN 12/17/18 ibuprofen 600 mg tablet 600 mg PO TID PRN tab 02/16/19 midodrine 2.5 mg tablet 2.5 mg PO TID tab 02/16/19 nut.tx.gluc.intol,lac-free,soy 1 ea PO BID ml 02/16/19 pantoprazole 40 mg tablet,delayed 40 mg PO DAILY 02/16/19 release polyethylene glycol 3350 17 17 g PO DAILY 02/16/19 gram/dose oral powder fludrocortisone 0.1 mg tablet 0.1 mg PO DAILY 02/17/19 potassium chloride 20 mEq 20 meq PO BID 02/17/19 tablet,extended release pregabalin 50 mg capsule 50 mg PO TID 02/17/19 traMADol [Ultram (G)] 50 mg PO Q8H 05/04/19 lisinopril 40 mg tablet 20 mg PO BID tab 09/15/19 Surgical History: Surgical History (Last Reviewed 11/07/19 @ 05:[address] 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 Rikki Jeong MD) Mother Hypertension Father Cancer Emphysema of lung Grandmother Diabetes History Items: - - Recently passed, August 2017 secondary to complications from Alzheimer's disease Paternal Family History: Family History (Last Reviewed 11/07/19 @ 05:[address] Rikki Jeong MD) Mother Hypertension Father Cancer Emphysema of lung Grandmother Diabetes History Items: - - Emphysema, lymphoma Review of Systems Constitutional: Reports: Chills. Denies: Fever, Weight Change HEENT: Denies: Head Aches, Sinus Congestion, Sinus Drainage Cardiovascular: Denies: Chest Pain, Palpitations Respiratory: Denies: Cough, Shortness of breath at rest, Sputum production Gastrointestinal: Reports: Abdominal Pain, Nausea, Vomiting Genitourinary: Denies: Dysuria Musculoskeletal: Denies: Joint Pain, Joint Tenderness Skin: Denies: Rash, Wounds Neurological: Denies: Numbness, Tingling, Focal weakness Psychiatric: Denies: Anxiety, Depression, Homicidal Ideations, Suicidal Ideations Hematologic/ Lymphatic: Denies: Easy Bruising, Easy Bleeding VTE Information - Inpt Only VTE Present on Admission: No VTE Mechan Device Prophylaxis: None VTE Pharm Prophylaxis ordered?: Yes Patient Problems: Active and Suspected Problems (Last Reviewed 11/07/19 @ 05:[address] Rikki Jeong MD) Severe sepsis (Acute) Colitis (Acute) Proctitis (Acute) Dehydration (Acute) Hyperkalemia (Acute) Acute kidney injury (Acute) - Physical Exam Vitals/I&O's: Vital Signs Temp Pulse Resp BP Pulse Ox 98.1 F 110 H 16 116/63 96 11/07/19 03:00 11/07/19 03:33 11/07/19 03:33 11/07/19 03:33 11/07/19 03:33 Oxygen Delivery Method Room Air Weight: 68 kg Body Mass Index (BMI) 24.9 Finger Stick Blood Glucose 412 Intake and Output for Last 24 Hours 11/05/19 11/06/19 11/07/19 23:59 23:59 23:59 Intake Total 1183.53 / 1183.53 Balance 1183.53 / 1183.53 General: Alert, Oriented x3, Cooperative, - - Patient shivering and of multiple blankets on her. Patient looks sick. HEENT: Atraumatic, PERRLA, EOMI, Normocephalic, - - Ptosis bilateral with left worse than right. Neck: Supple, No JVD, Negative Carotid Bruits Lungs: Clear to auscultation, Normal air movement, No rhonchi, No wheeze, No rales Cardiovascular: Regular Rhythm, Normal S1, Normal S2, No murmurs, Tachycardic Abdomen: Bowel Sounds Present, Soft, Non Tender, Hyperactive Bowel Sounds Extremities: No edema, Capillary Refill Less than 3 Seconds Skin: No rashes, No breakdown Musculoskeletal: No Tenderness to Palpation of Joints or Extremities Neurological: Cranial nerves II-XII grossly intact Psych/Mental Status: Normal Affect, Appropriate Laboratory Results 11/06/19 23:19: WBC 19.8 H, RBC 3.40 L, Hgb 9.8 L, Hct 29.7 L, MCV 87.4, MCH 28.8, MCHC 33.0, RDW Std Deviation 37.6, RDW Coeff of Chris 11.8, Plt Count 344, MPV 10.9, Immature Gran % (Auto) 0.700, Neut % (Auto) 92.2 H, Lymph % (Auto) 2.9 L, [place] % (Auto) 3.4, Eos % (Auto) 0.5, Baso % (Auto) 0.3, Absolute Neuts (auto) 18.3 H, Absolute Lymphs (auto) 0.57 L, Nucleated RBC % 0, Differential Comment COMMENT 11/06/19 23:19: Sodium Cancelled, Potassium Cancelled, Chloride Cancelled, Carbon Dioxide Cancelled, Anion Gap Cancelled, BUN Cancelled, Creatinine Cancelled, Estim Creat Clear Calc Cancelled, Est GFR (MDRD) Af Amer Cancelled, Est GFR (MDRD) Non-Af Cancelled, BUN/Creatinine Ratio Cancelled, Glucose Cancelled, Calcium Cancelled 11/07/19 00:45: Lactic Acid 2.6 H* 11/07/19 00:45: Sodium 137, Potassium 7.0 H*, Chloride 102, Carbon Dioxide 29.0, Anion Gap 6, BUN 34 H, Creatinine 1.96 H, Estim Creat Clear Calc 28.50, Est GFR (MDRD) Af Amer 34 L, Est GFR (MDRD) Non-Af 28 L, BUN/Creatinine Ratio 17.3, Glucose 420 H, Calcium 8.7 11/07/19 01:30: Urine Color Yellow, Urine Clarity Clear, Urine pH 5.0, Ur Specific [place] 1.010, Urine Protein Negative, Urine Glucose (UA) 250 H, Urine Ketones Negative, Urine Occult Blood Negative, Urine Nitrite Negative, Urine Bilirubin Negative, Urine Urobilinogen Normal, Ur Leukocyte Esterase Negative, Urine RBC 0 SEEN, Urine WBC 0 SEEN, Ur Squamous Epith Cells 0 SEEN, Urine Bacteria 0 SEEN, Urine Mucus 0 SEEN Current Medications Sodium Chloride () 1,000 mls @ 1,000 mls/hr IV .Q1H ONE Stop: 11/07/19 03:51 Last Admin: 11/07/19 02:59 Dose: 1,000 mls/hr Documented by: Ciprofloxacin (Cipro) 400 mg in 200 mls @ 200 mls/hr IV X1 ONE Stop: 11/07/19 04:33 Metronidazole (Flagyl) 500 mg in 100 mls @ 100 mls/hr IV X1 ONE Stop: 11/07/19 04:33 Assessment/Plan All Active Problems (Last Reviewed 11/07/19 @ 05:[address] Rikki Jeong MD) Severe sepsis (Acute) Colitis (Acute) Proctitis (Acute) Dehydration (Acute) Hyperkalemia (Acute) Acute kidney injury (Acute) Allergic reaction (Resolved) Angio-edema (Resolved) Headache (Resolved) Gastroparesis due to DM (Ruled-out) Occlusion of carotid artery without cerebral infarction (Ruled-out) The patient is a 59 year old F with a significant history of postconcussion syndrome; orthostatic hypotension and diabetes mellitus who presents to the emergency department with nausea, vomiting; diarrhea and hyperglycemia and found to have severely elevated potassium; and with tachycardia; hypotension; leukocytosis; and with radiographic findings highly suspicious for diffuse colitis and proctitis. Severe sepsis Admit to intensive care unit. Sirs criteria: Pulse of more than 90; systolic blood pressure of less than 90 on presentation; white count of more than 12,000 Severe sepsis criteria: Lactic acid of more than 2; systolic blood pressure of less than 90 on presentation. Abdominal/pelvis CT findings suggestive of diffuse colitis and proctitis Blood blood culture x2 was ordered at emergency department; follow. Trend lactic acid. Received normal saline bolus in the emergency department. Continue patient on maintenance normal saline infusion. Hold home home blood pressure medications. C. difficile and enteric pathogen panel ordered at emergency department. Started on Flagyl and ciprofloxacin at emergency department; and continued. Start patient on vancomycin p.o. for probable C. difficile. Casing Tier consult. Colitis/proctitis Management as an severe sepsis. Zofran PRN. ALMA Creatinine on presentation was 1.96 Review of old records shows a creatinine baseline of less than 1. BUN is 34 BUN over creatinine is 17.3. Likely prerenal entry into intrinsic renal. Avoid nephrotoxins. Hold home ibuprofen and lisinopril. Trend BMP. Hyperkalemia His potassium presentation was 7.0. Patient with tall T waves. Received calcium gluconate, insulin; IV fluids and Kayexalate at emergency department. Her hyperkalemia could be due to dehydration and also from home potassium supplementation. Hold home potassium. Hold lisinopril. Trend BMP. IV fluids as above. Dehydration Elevated BUN compared to previous. Like secondary to vomiting, and diarrhea. IV hydration as above. History of hypertension Patient with hypotension on presentation Hold home clonidine and Cardizem. Diabetes mellitus Patient with hyperglycemia on presentation Receive lispro IV at emergency department. Will put patient on clear liquid because of nausea and vomiting. Accu-Chek every 4 hours with correction scale insulin. Hold home prandial insulin. Continue basal insulin. Orthostatic hypotension Home Florinef continued Midodrine continue. Chronic hand pain. Secondary to crush injury Home tramadol continued. DVT prophylaxis Subcutaneous Lovenox. Inpatient E&M: 42178 Init Hosp L3
[2019-11-07] MEDS: metroNIDAZOLE 500 MG/100 ML BAG 100 MG IV ×3 (03:48→21:20)
[2019-11-07] MEDS: Ciprofloxacin 400 MG/200 ML BAG 200 MG IV ×2 (03:55→22:21)
[2019-11-07 04:51] LABS: Reflex Lactate? Y
[2019-11-07] MEDS: 0.9% Normal Saline 1,000 ML 150 ML IV ×3 (05:16→19:47)
[2019-11-07 05:45] LABS: Absolute Lymphocyte Count 0.84 X10^3/uL (0.83-4.51); Absolute Neutrophil Count 13.7 X10^3/uL (2.0-7.7); Basophil# 0.02 X10^3/uL; Basophil% 0.1 % (0-1); Eosinophil# 0.24 X10^3/uL; Eosinophils% 1.5 % (0-5); Lymphocyte # 0.84 X10^3/ul (4.0); Lymphocyte % 5.4 % (19-41); Mean Corpuscular Hgb 28.5 pg (27.0-32.0); Mean Platelet Vol. 10.3 fl (6.2-12.0); Monocyte# 0.75 X10^3/uL; Monocyte% 4.8 % (0-10); NRBC Flagged by Analyzer 0 % (0-5); Neutrophil % 87.9 % (47-70); POSITIVE MORPHOLOGY YES; Platelet Count 276 K/mm3 (150-450); RBC Distribution Width CV 11.9 % (11.6-14.6); RBC Distribution Width SD 38.2 fl (35.1-43.9); Red Blood Count 2.81 M/mm3 (4.2-5.4); White Blood Count 15.6 K/mm3 (4.4-11.0)
[2019-11-07] MEDS: Midodrine HCl 5 MG Tablet 2.5 MG PO ×3 (05:46→21:09)
[2019-11-07 05:53] LABS: Differential Indicated SCAN CRITERIA MET
[2019-11-07 05:57] LABS: Anion Gap 8 (5-15); BUN 29 mg/dL (7-18); BUN/Creat Ratio 18.4 RATIO (10-20); Calcium,Total 8.2 mg/dL (8.5-10.1); Chloride 107 mmol/L (98-107); Creatinine, Serum 1.58 mg/dL (0.55-1.02); EST Glomerular Filtration Rate 36 mL/min (>60); Est Glom Filt Rate - Afr Amer 43 mL/min (>60); Estimated Creatinine Clearance 35.35 ml/min; Glucose 291 mg/dL (74-106); Potassium 5.1 mmol/L (3.5-5.1); Sodium Level 140 mmol/L (136-145)
[2019-11-07 06:28] LABS: Lactic Acid 3.7 mmol/L (0.4-1.9)
[2019-11-07] MEDS: Insulin Lispro 100 UNIT/ML INSULN.PEN SC ×3 (06:39→21:18)
[2019-11-07] MEDS: Pregabalin 50 MG Capsule PO ×2 (06:40→21:13)
[2019-11-07 07:31] LABS: Bedside Glucose 270 mg/dL (70-110)
[2019-11-07] MEDS: Fludrocortisone Acetate 0.1 MG Tablet PO (09:17)
[2019-11-07] MEDS: Pantoprazole Sodium 40 MG Tablet PO (09:17)
[2019-11-07] MEDS: Enoxaparin 30 MG/0.3 ML Syringe SC (09:17)
[2019-11-07] MEDS: Aspirin 81 MG TAB.CHEW PO (09:17)
[2019-11-07] MEDS: traMADol 50 MG Tablet PO ×2 (09:18→21:13)
[2019-11-07 09:36] LABS: Bedside Glucose 171 mg/dL (70-110)
--- NOTE | 2019-11-07 10:01 | PCM.CON.CC ---
Problem List (1) Severe sepsis Status: Acute (2) Colitis Status: Acute (3) Proctitis Status: Acute (4) Dehydration Status: Acute (5) Hyperkalemia Status: Acute (6) Acute kidney injury Status: Acute (7) Essential hypertension Status: Chronic (8) Vertigo Status: Chronic (9) HLD (hyperlipidemia) Status: Chronic (10) History of orthostatic hypotension Status: Chronic (11) Type II diabetes mellitus Status: Chronic Reason for Consult Date of Consultation: 11/07/19 Reason for Consultation: Hypotension History of Present Illness: The patient is a 59 year old F, with past medical history listed below, who presented to [facility] on 11/06/2019 secondary to hyperglycemia. Patient reportedly had had 2 episodes of emesis with nausea, watery diarrhea over the previous 24 hours. Patient had denied any fevers, chills, respiratory symptoms, abdominal pain or rashes. Patient is a known diabetic and had noted herself to be hyperglycemic. Patient called EMS for evaluation. Patient does take insulin at baseline. Patient denied any urinary or back symptoms. No cough or cyanosis have been reported. In the ER, patient was given IV fluids, Zofran and EKG showed sinus tachycardia. Patient had significant leukocytosis greater than 19,000 and potassium was elevated at 7. Patient was given a cocktail. Further labs showed creatinine was 1.[address] of the abdomen and pelvis showed significant colitis with proctitis. No free air was reported. Patient's initial blood pressure was in the 70s, but did respond to fluid resuscitation. Patient was given Cipro, Flagyl and stool studies were ordered. Patient was admitted to the intensive care unit for close monitoring and for blood sugar correction. Since being in the intensive care unit, patient's hemodynamic status has been okay. Patient has started to become more hypotensive and has had multiple bowel movements since being admitted to the intensive care unit. Patient would open her eyes and follow some commands, but is slow to respond. Patient was not very helpful with the review of systems on my evaluation. Nursing is reporting no blood in the stool. C. difficile has come back negative. Patient is unaware of any diagnosis of inflammatory bowel disease. Patient does have a wound on her left heel that was reportedly from my shoes and is being followed with podiatry. Patient reportedly puts topical Betadine and occlusive dressing. Past Medical History Past Medical History (Chronic Problems): Chronic Problems (Last Updated 11/07/19 @ 07:[address] Luigi Villalobos MD) Essential hypertension (Chronic) Migraine without aura (Chronic) Vertigo (Chronic) HLD (hyperlipidemia) (Chronic) Post-concussion syndrome (Chronic) History of orthostatic hypotension (Chronic) Type II diabetes mellitus (Chronic) Medical History: Medical History (Last Updated 11/07/19 @ 07:[address] Luigi Villaloobs MD) Essential hypertension (Chronic) I10 Migraine without aura (Chronic) G43.009 Vertigo (Chronic) R42 HLD (hyperlipidemia) (Chronic) E78.5 Post-concussion syndrome (Chronic) F07.81 History of orthostatic hypotension (Chronic) Z86.79 Type II diabetes mellitus (Chronic) E11.9 Chronic pain syndrome G89.4 Malnutrition E46 Allergies metformin Adverse Reaction (Verified 11/06/19 23:45) Diarrhea Home Medications: Ambulatory Orders Medication Instructions Recorded Aspirin [Aspirin, Baby] 81 mg PO DAILY@0800 #30 tab.chew 10/17/18 Atorvastatin Calcium [Lipitor] 40 mg PO QHS #30 tab 10/17/18 Clonidine HCl [Catapres] 0.2 mg PO TID 12/17/18 Diltiazem CD [Cardizem CD] 180 mg PO DAILY 12/17/18 Insulin Glargine [Lantus (BKC)] 20 units SUBCUT QHS 12/17/18 Insulin Lispro [Humalog KwikPen] 7 unit SQ TIDCM 12/17/18 Insulin Lispro [Humalog KwikPen] See Protocol SQ PRN PRN 12/17/18 Magnesium Oxide [Mag-Ox 400] 400 mg PO BID 12/17/18 Ondansetron [Zofran Odt] 4 mg PO Q6H PRN 12/17/18 ibuprofen 600 mg tablet 600 mg PO TID PRN tab 02/16/19 midodrine 2.5 mg tablet 2.5 mg PO TID tab 02/16/19 nut.tx.gluc.intol,lac-free,soy 1 ea PO BID ml 02/16/19 pantoprazole 40 mg tablet,delayed 40 mg PO DAILY 02/16/19 release polyethylene glycol 3350 17 17 g PO DAILY 02/16/19 gram/dose oral powder fludrocortisone 0.1 mg tablet 0.1 mg PO DAILY 02/17/19 potassium chloride 20 mEq 20 meq PO BID 02/17/19 tablet,extended release pregabalin 50 mg capsule 50 mg PO TID 02/17/19 traMADol [Ultram (G)] 50 mg PO Q8H 05/04/19 lisinopril 40 mg tablet 20 mg PO BID tab 09/15/19 Surgical History: Surgical History (Last Reviewed 11/07/19 @ 05:[address] 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 Rikki Jeong MD) Mother Hypertension Father Cancer Emphysema of lung Grandmother Diabetes History Items: - - Recently passed, August 2017 secondary to complications from Alzheimer's disease Paternal Family History: Family History (Last Reviewed 11/07/19 @ 05:[address] Rikki Jeong MD) Mother Hypertension Father Cancer Emphysema of lung Grandmother Diabetes History Items: - - Emphysema, lymphoma Review of Systems Unable to obtain accurate/complete ROS d/t: Patient cooperation Patient Problems: Active and Suspected Problems (Last Updated 11/07/19 @ 07:[address] Luigi Villalobos MD) Severe sepsis (Acute) Colitis (Acute) Proctitis (Acute) Dehydration (Acute) Hyperkalemia (Acute) Acute kidney injury (Acute) Objective: All imaging was personally reviewed. Chest x-ray was unremarkable. Agree with CT interpretation. Review of the computer shows patient does follow with cardiology. Patient reportedly has had a 70 pound weight loss in the last 2 years. Patient did have a stress test in April 2019 showing a preserved ejection fraction of 65% and no signs of ischemia. No pulmonary function tests have been obtained. - Physical Exam Vitals/I&O's: Vital Signs Temp Pulse Resp BP Pulse Ox 37.2 C 106 H 10 L 96/55 L 96 11/07/19 08:00 11/07/19 09:00 11/07/19 09:00 11/07/19 09:00 11/07/19 09:00 Oxygen Delivery Method Room Air Weight: 67.9 kg Body Mass Index (BMI) 24.9 Finger Stick Blood Glucose 412 Intake and Output for Last 24 Hours 11/05/19 11/06/19 11/07/19 23:59 23:59 23:59 Intake Total 2233.53 / 2233.53 Balance 2233.53 / 2233.53 General: Alert, Non-Cooperative - Intermittently, - - Appears older than stated age. Slow to respond, but appropriate HEENT: Atraumatic, PERRLA, EOMI, Normocephalic, - - No scleral icterus or injection noted Oral: Moist Mucosa, No Gingival or Mucosal Lesions/ Ulcerations Neck: Supple, No JVD, No Nodes, Trachea Midline Lungs: No rhonchi, No wheeze, No rales, Diminished, - - Symmetric expansion. Cardiovascular: Regular rate, Regular Rhythm, Normal S1, Normal S2, No murmurs, No rub noted, No Gallop Abdomen: Bowel Sounds Present, Soft, Non Tender, Non-Distended Extremities: No clubbing, No cyanosis, No edema Skin: Ulcer/ Wound - Left heel Musculoskeletal: No Tenderness to Palpation of Joints or Extremities Lymphatic: No Cervical, Supraclavicular, or Inguinal Adenopathy Neurological: Cranial nerves II-XII grossly intact, Neuro grossly intact Psych/Mental Status: Flat Affect Microbiology Past 72 Hours 11/07/19 04:35 Stool C. difficile DNA Amplification - Final 11/07/19 04:35 Stool Stool Lactoferrin - Final Laboratory Results 11/06/19 23:19: WBC 19.8 H, RBC 3.40 L, Hgb 9.8 L, Hct 29.7 L, MCV 87.4, MCH 28.8, MCHC 33.0, RDW Std Deviation 37.6, RDW Coeff of Chris 11.8, Plt Count 344, MPV 10.9, Immature Gran % (Auto) 0.700, Neut % (Auto) 92.2 H, Lymph % (Auto) 2.9 L, Davis % (Auto) 3.4, Eos % (Auto) 0.5, Baso % (Auto) 0.3, Absolute Neuts (auto) 18.3 H, Absolute Lymphs (auto) 0.57 L, Nucleated RBC % 0, Differential Comment COMMENT 11/06/19 23:19: Sodium Cancelled, Potassium Cancelled, Chloride Cancelled, Carbon Dioxide Cancelled, Anion Gap Cancelled, BUN Cancelled, Creatinine Cancelled, Estim Creat Clear Calc Cancelled, Est GFR (MDRD) Af Amer Cancelled, Est GFR (MDRD) Non-Af Cancelled, BUN/Creatinine Ratio Cancelled, Glucose Cancelled, Calcium Cancelled 11/07/19 00:45: Lactic Acid 2.6 H* 11/07/19 00:45: Sodium 137, Potassium 7.0 H*, Chloride 102, Carbon Dioxide 29.0, Anion Gap 6, BUN 34 H, Creatinine 1.96 H, Estim Creat Clear Calc 28.50, Est GFR (MDRD) Af Amer 34 L, Est GFR (MDRD) Non-Af 28 L, BUN/Creatinine Ratio 17.3, Glucose 420 H, Calcium 8.7 11/07/19 01:30: Urine Color Yellow, Urine Clarity Clear, Urine pH 5.0, Ur Specific Means 1.010, Urine Protein Negative, Urine Glucose (UA) 250 H, Urine Ketones Negative, Urine Occult Blood Negative, Urine Nitrite Negative, Urine Bilirubin Negative, Urine Urobilinogen Normal, Ur Leukocyte Esterase Negative, Urine RBC 0 SEEN, Urine WBC 0 SEEN, Ur Squamous Epith Cells 0 SEEN, Urine Bacteria 0 SEEN, Urine Mucus 0 SEEN 11/07/19 05:35: Lactic Acid 3.7 H* 11/07/19 05:35: WBC 15.6 H, RBC 2.81 L, Hgb 8.0 L, Hct 25.0 L, MCV 89.0, MCH 28.5, MCHC 32.0, RDW Std Deviation 38.2, RDW Coeff of Chris 11.9, Plt Count 276, MPV 10.3, Immature Gran % (Auto) 0.300, Neut % (Auto) 87.9 H, Lymph % (Auto) 5.4 L, Davis % (Auto) 4.8, Eos % (Auto) 1.5, Baso % (Auto) 0.1, Absolute Neuts (auto) 13.7 H, Absolute Lymphs (auto) 0.84, Nucleated RBC % 0, Differential Comment COMMENT 11/07/19 05:35: Sodium 140, Potassium 5.1, Chloride 107, Carbon Dioxide 25.0, Anion Gap 8, BUN 29 H, Creatinine 1.58 H, Estim Creat Clear Calc 35.35, Est GFR (MDRD) Af Amer 43 L, Est GFR (MDRD) Non-Af 36 L, BUN/Creatinine Ratio 18.4, Glucose 291 H, Calcium 8.2 L 11/07/19 05:44: POC Glucose 270 H 11/07/19 09:25: POC Glucose 171 H 11/07/19 09:34: Lactic Acid Pending Current Medications Acetaminophen (Tylenol) 650 mg PO Q6H PRN PRN PRN Reason: Pain Score 1-10/Temp > 100.7 F Albuterol Sulfate (Ventolin Aerosols) 2.5 mg INHALATION Q2H PRN PRN PRN Reason: SOB/Wheezing Aspirin (Aspirin, Baby) 81 mg PO DAILY@0800 [facility] Last Admin: 11/07/19 09:17 Dose: 81 mg Documented by: Atorvastatin Calcium (Lipitor) 40 mg PO QHS [facility] Dextrose (D50w Syringe) 0 gm IV X1 PRN; Protocol PRN Reason: Hypoglycemia Enoxaparin Sodium (Lovenox) 30 mg SC DAILY [facility] Last Admin: 11/07/19 09:17 Dose: 30 mg Documented by: Fludrocortisone Acetate (Florinef) 0.1 mg PO DAILYCM [facility] Last Admin: 11/07/19 09:17 Dose: 0.1 mg Documented by: Glucagon () 1 mg IM .X1 PRN PRN Reason: Hypoglycemia Sodium Chloride () 1,000 mls @ 150 mls/hr IV .Q6H40M [facility] Last Admin: 11/07/19 05:16 Dose: 150 mls/hr Documented by: Ciprofloxacin (Cipro) 400 mg in 200 mls @ 200 mls/hr IV Q24@2200 [facility] Metronidazole (Flagyl) 500 mg in 100 mls @ 100 mls/hr IV Q8 [facility] Sodium Chloride () 250 mls @ 15 mls/hr IV .[id number] PRN PRN Reason: Saline Flush Sodium Chloride () 250 mls @ 15 mls/hr IV .[id number] PRN PRN Reason: Additional IVPB Infusion Insulin Glargine (Lantus ([facility])) 20 units SC QHS [facility] Insulin Human Lispro (Humalog Kwikpen (Bkc)) 0 unit SC ACHS [facility]; Protocol Midodrine (Proamatine) 2.5 mg PO TID [facility] Last Admin: 11/07/19 05:46 Dose: 2.5 mg Documented by: Ondansetron HCl (Zofran) 4 mg IV Q8H PRN PRN PRN Reason: NAUSEA/VOMITING Pantoprazole Sodium (Protonix) 40 mg PO DAILY [facility] Last Admin: 11/07/19 09:17 Dose: 40 mg Documented by: Pregabalin (Lyrica) 50 mg PO TID [facility] Last Admin: 11/07/19 06:40 Dose: 50 mg Documented by: Sodium Chloride () 10 - 40 ml IV UD PRN PRN Reason: SALINE FLUSH Tramadol HCl (Ultram) 50 mg PO BID [facility] Last Admin: 11/07/19 09:18 Dose: 50 mg Documented by: Vancomycin HCl () 125 mg PO Q6 [facility] Last Admin: 11/07/19 05:47 Dose: 125 mg Documented by: Clinical Impression(s) from Imaging Studies Chest X-Ray 11/07/19 00:28 IMPRESSION: Normal x-ray examination of the chest. Electronically Signed: Devika Gil MD at 1:28 EDT Tel , Service support , Abdomen/Pelvis CT 11/07/19 01:28 IMPRESSION: Thick-walled edematous featureless appearance of the colon. Highly suspicious for diffuse colitis and proctitis. Consider inflammatory bowel disease and infectious etiology versus the possibility of pseudomembranous colitis. Given the amount of wall thickening of the rectum likely represents proctitis associated with diarrhea however atypia, is not entirely excluded. Punctate stones right kidney no evidence of hydronephrosis Mild wall thickening of the bladder consider cystitis. Status post cholecystectomy. Small focus of left lower lobe atelectasis and/or infiltrate. Electronically Signed: Devika Gil MD at 3:31 EDT Tel , Service support , Assessment/Plan Active and Suspected Problems (Last Updated 11/07/19 @ 07:[address] Luigi Villalobos MD) Severe sepsis (Acute) Colitis (Acute) Proctitis (Acute) Dehydration (Acute) Hyperkalemia (Acute) Acute kidney injury (Acute) RECOMMENDATIONS: 1. Okay to insert PICC 2. Continue empiric antibiotics 3. Monitor abdominal exam. Possible surgery consult 4. Trend troponins until peaked 5. Possible need for pressors for blood pressure. Continue to hold baseline medications 6. Okay to transition to q. before meals and at bedtime blood sugar checks 7. Obtain random cortisol IMPRESSIONS: 1. Severe sepsis secondary to colitis Exact etiology is unclear at this time. Patient has significant colitis noted on CT scan of the abdomen. Differential diagnosis would include infectious versus versus ischemic inflammatory bowel disease. Patient has had a 70 pound weight loss attributed to gastroparesis. Patient will likely need to be seen by surgery at some point for colonoscopy. Continue with antibiotics for now. Stool studies are still pending. Agree with slow hydration, but cannot exclude the need for pressor agents. Continue to monitor in the intensive care unit. 2. Acute kidney injury with hyperkalemia Clinical suspicion for prerenal etiology. Unclear how long patient has been low on volume. This would be exacerbated by patient's baseline ibuprofen and lisinopril. This should be held. Continue to trend BMPs. No indication for renal replacement therapy at this time. 3. Diabetes mellitus with insulin dependence Hold basal insulin for now. Patient with a variable diet. We will continue with sliding scale insulin as necessary. 4. Hypertension Unclear etiology of patient being on Florinef, Midodrin and antihypertensives. Given hypotension, antihypertensives have been held, but this will need to be addressed in the future. Reasonable to obtain cortisol level. Previous echocardiograms have been unremarkable. However, patient does have hypertension, diabetes and other risk factors for coronary vascular disease. 5. Chronic hand pain/poor historian/hyperlipidemia/malnutrition/chronic pain syndrome Complicates care, management, recovery and prognosis. Continue to monitor closely. Patient is reportedly a full code. Inpatient E&M: 60208 Init Hosp L3
[2019-11-07 10:11] LABS: Lactic Acid 1.5 mmol/L (0.4-1.9)
--- NOTE | 2019-11-07 10:12 | ECHOCS_ITS ---
Reason For Study: Hypotension Procedure This was a 2D Doppler, Color Flow transthoracic echocardiogram. The study was technically difficult. Contrast injection was performed. Exam performed portable in ICU/CCU. Left Ventricle Normal LV size. Apical false tendon noted. Left ventricular systolic function is normal. The estimated ejection fraction is 65 %. No evidence for diastolic dysfunction. No regional wall motion abnormalities noted. Right Ventricle Normal RV size. Normal systolic function. Atria Normal left atrium. Normal right atrium. No doppler evidence for ASD. Mitral Valve There is no mitral annular calcification. Normal mitral valve. Trivial mitral valve insufficiency. Tricuspid Valve Normal tricuspid valve. Trivial tricuspid valve insufficiency. Right ventricular systolic pressure estimated to be 33 mmHg. Aortic Valve Trisinus/trileaflet aortic valve. Normal aortic valve. Pulmonic Valve The pulmonic valve is not well visualized. Great Vessels Normal sized aortic root. Pericardium/Pleural No pericardial effusion. Medication Diluted definity 2ml given slow IV push to enhance endocardial definition. MMode/2D Measurements & Calculations LVIDd: 5.3 cm IVSd: 0.71 cm Ao root diam: 2.9 cm LVIDs: 3.7 cm LVPWd: 0.71 cm RVDd: 3.1 cm FS: 31.3 % LAV(MOD-bp): 25.6 ml LA A4 area: 11.3 cm2 LA dimension(2D): 3.1 cm LAV(MOD-bp) Indexed: 14.6 ml/m2 LAV(MOD-sp2): 28.5 ml LAV(MOD-sp4): 23.2 ml RA A4 area: 10.1 cm2 Doppler Measurements & Calculations MV E max virgil: 101.9 cm/sec Lat Peak E' Virgil: 14.5 cm/sec Med Peak E' Virgil: 8.8 cm/sec MV A max virgil: 73.2 cm/sec E/E' lat: 7.0 E/E' med: 11.6 MV E/A: 1.4 Ao V2 max: 182.8 cm/sec LV V1 max: 139.7 cm/sec PA V2 max: 124.9 cm/sec Ao max P.4 mmHg LV V1 max P.8 mmHg Ao V2 mean: 134.9 cm/sec Ao mean P.9 mmHg Ao V2 VTI: 33.7 cm TR max virgil: 250.8 cm/sec TR max P.2 mmHg Interpretation Summary The study was technically difficult. Contrast injection was performed. Left ventricular systolic function is normal. The estimated ejection fraction is 65 %. Apical false tendon noted. Trivial mitral valve insufficiency. Trivial tricuspid valve insufficiency. Right ventricular systolic pressure estimated to be 33 mmHg. No evidence for diastolic dysfunction. Comment: 2D echocardiographic findings compatible with a mobile echodensity compatible with a central venous catheter type device noted in the right atrium. Ordering Physician: Jero Thomas Referring Physician: Dennys Serrano Performed By: Kadie Syed RDCS, RVT
[2019-11-07] MEDS: Ensure Clear 120 ML Liquid PO ×2 (13:12→17:10)
--- NOTE | 2019-11-07 13:40 | CASEMGMT ---
RN CM attempted to completed RN CM assessment at this time. Patient is sleeping and unable to arouse to complete assessment after several attempts. CM will complete assessment at a later time.
[2019-11-07 15:26] LABS: Bedside Glucose 158 mg/dL (70-110)
[2019-11-07 17:15] LABS: Bedside Glucose 138 mg/dL (70-110)
[2019-11-07] MEDS: Atorvastatin Calcium 40 MG Tablet PO (21:09)
[2019-11-07 21:25] LABS: Bedside Glucose 246 mg/dL (70-110)
[2019-11-08] VITALS (30 sets, daily range): BP systolic 129–164; BP diastolic 60–91; PULSE 97–108; RESP 10–22; TEMP 36.7–36.9; O2SAT 93–100
[2019-11-08] MEDS: 0.9% Normal Saline 1,000 ML 150 ML IV ×2 (02:14→09:00)
[2019-11-08 04:24] LABS: Absolute Lymphocyte Count 1.14 X10^3/uL (0.83-4.51); Absolute Neutrophil Count 8.9 X10^3/uL (2.0-7.7); Basophil# 0.01 X10^3/uL; Basophil% 0.1 % (0-1); Eosinophil# 0.05 X10^3/uL; Eosinophils% 0.5 % (0-5); Hematocrit 23.6 % (37-47); Hemoglobin 7.5 g/dL (12.0-15.0); Lymphocyte # 1.14 X10^3/ul (4.0); Lymphocyte % 10.8 % (19-41); Mean Corp Hgb Conc 31.8 g/dL (32-36); Mean Corpuscular Hgb 28.7 pg (27.0-32.0); Mean Corpuscular Volume 90.4 fL (81-99); Monocyte# 0.38 X10^3/uL; Monocyte% 3.6 % (0-10); NRBC Flagged by Analyzer 0 % (0-5); Neutrophil % 84.5 % (47-70); Platelet Count 223 K/mm3 (150-450); RBC Distribution Width CV 11.9 % (11.6-14.6); RBC Distribution Width SD 38.8 fl (35.1-43.9); Red Blood Count 2.61 M/mm3 (4.2-5.4); White Blood Count 10.5 K/mm3 (4.4-11.0)
[2019-11-08 04:40] LABS: Anion Gap 4 (5-15); BUN 18 mg/dL (7-18); BUN/Creat Ratio 18.2 RATIO (10-20); Calcium,Total 7.8 mg/dL (8.5-10.1); Chloride 114 mmol/L (98-107); Creatinine, Serum 0.99 mg/dL (0.55-1.02); EST Glomerular Filtration Rate 61 mL/min (>60); Est Glom Filt Rate - Afr Amer 74 mL/min (>60); Estimated Creatinine Clearance 56.42 ml/min; Glucose 187 mg/dL (74-106); Potassium 3.5 mmol/L (3.5-5.1); Sodium Level 144 mmol/L (136-145)
[2019-11-08] MEDS: metroNIDAZOLE 500 MG/100 ML BAG 100 MG IV ×3 (05:35→21:01)
[2019-11-08] MEDS: Midodrine HCl 5 MG Tablet 2.5 MG PO (05:35)
[2019-11-08] MEDS: Pregabalin 50 MG Capsule PO ×3 (05:39→20:59)
--- NOTE | 2019-11-08 07:02 | PCM.PN.INT ---
Subjective: Patient did well overnight. Patient has had several episodes of nonsustained V. tach, but had no symptoms during events. Patient states diarrhea is improving. Patient has required no supplemental oxygen. Blood pressures are actually hypertensive this morning. Patient is not reporting any black tarry stools or hematochezia. Patient did have some urinary retention overnight requiring placement of a Howard. Objective: Echocardiogram showed an EF of 65% with an RVSP of 33 mmHg. General: Alert, Oriented x3, Cooperative, No apparent distress, - - Still slow to respond, but answers appropriately. HEENT: Atraumatic, PERRLA, EOMI, Normocephalic, - - No scleral icterus or injection noted Oral: Moist Mucosa, No Gingival or Mucosal Lesions/ Ulcerations Neck: Supple, No JVD, No Nodes, Trachea Midline Lungs: No rhonchi, No wheeze, No rales, Diminished, - - Fair effort Cardiovascular: Normal S1, Normal S2, No murmurs, No rub noted, No Gallop, Tachycardic Abdomen: Bowel Sounds Present, Soft, Non Tender, Non-Distended Extremities: No clubbing, No cyanosis, No edema, Capillary Refill Less than 3 Seconds Skin: - - No change from previous Musculoskeletal: No Tenderness to Palpation of Joints or Extremities Lymphatic: No Cervical, Supraclavicular, or Inguinal Adenopathy Neurological: Cranial nerves II-XII grossly intact, Neuro grossly intact, Motor Exam 5/5 strength throughout Psych/Mental Status: Alert and oriented to time, place, person, mood and affect Vital Signs Temp Pulse Resp BP Pulse Ox 36.8 C 100 15 142/68 H 94 11/08/19 04:00 11/08/19 06:00 11/08/19 06:00 11/08/19 06:00 11/08/19 06:00 Oxygen Delivery Method Room Air Weight: 67.5 kg Body Mass Index (BMI) 24.9 Finger Stick Blood Glucose 412 Intake and Output for Last 24 Hours 11/06/19 11/07/19 11/08/19 23:59 23:59 23:59 Intake Total 5413.53 / 5413.53 1755.0 / 1755.0 Output Total 650 / 650 1200 / 1200 Balance 4763.53 / 4763.53 555.0 / 555.0 Labs (Last 48 Hours) 08/10/1811/06/19 11/07/19 23:19 23:19 00:45 WBC 19.8 H RBC 3.40 L Hgb 9.8 L Hct 29.7 L MCV 87.4 MCH 28.8 MCHC 33.0 RDW Std Deviation 37.6 RDW Coeff of Chris 11.8 Plt Count 344 MPV 10.9 Immature Gran % (Auto) 0.700 Neut % (Auto) 92.2 H Lymph % (Auto) 2.9 L [place] % (Auto) 3.4 Eos % (Auto) 0.5 Baso % (Auto) 0.3 Absolute Neuts (auto) 18.3 H Absolute Lymphs (auto) 0.57 L Nucleated RBC % 0 Differential Comment COMMENT Sodium Cancelled Potassium Cancelled Chloride Cancelled Carbon Dioxide Cancelled Anion Gap Cancelled BUN Cancelled Creatinine Cancelled Estim Creat Clear Calc Cancelled Est GFR (MDRD) Af Amer Cancelled Est GFR (MDRD) Non-Af Cancelled BUN/Creatinine Ratio Cancelled Glucose Cancelled Lactic Acid 2.6 H* Calcium Cancelled Magnesium Cortisol Urine Color Urine Clarity Urine pH Ur Specific [place] Urine Protein Urine Glucose (UA) Urine Ketones Urine Occult Blood Urine Nitrite Urine Bilirubin Urine Urobilinogen Ur Leukocyte Esterase Urine RBC Urine WBC Ur Squamous Epith Cells Urine Bacteria Urine Mucus POC Glucose 11/07/19 11/07/19 11/07/19 00:45 01:30 05:35 WBC RBC Hgb Hct MCV MCH MCHC RDW Std Deviation RDW Coeff of Chris Plt Count MPV Immature Gran % (Auto) Neut % (Auto) Lymph % (Auto) [place] % (Auto) Eos % (Auto) Baso % (Auto) Absolute Neuts (auto) Absolute Lymphs (auto) Nucleated RBC % Differential Comment Sodium 137 Potassium 7.0 H* Chloride 102 Carbon Dioxide 29.0 Anion Gap 6 BUN 34 H Creatinine 1.96 H Estim Creat Clear Calc 28.50 Est GFR (MDRD) Af Amer 34 L Est GFR (MDRD) Non-Af 28 L BUN/Creatinine Ratio 17.3 Glucose 420 H Lactic Acid 3.7 H* Calcium 8.7 Magnesium Cortisol Urine Color Yellow Urine Clarity Clear Urine pH 5.0 Ur Specific [place] 1.010 Urine Protein Negative Urine Glucose (UA) 250 H Urine Ketones Negative Urine Occult Blood Negative Urine Nitrite Negative Urine Bilirubin Negative Urine Urobilinogen Normal Ur Leukocyte Esterase Negative Urine RBC 0 SEEN Urine WBC 0 SEEN Ur Squamous Epith Cells 0 SEEN Urine Bacteria 0 SEEN Urine Mucus 0 SEEN POC Glucose 11/07/19 11/07/19 11/07/19 05:35 05:35 05:44 WBC 15.6 H RBC 2.81 L Hgb 8.0 L Hct 25.0 L MCV 89.0 MCH 28.5 MCHC 32.0 RDW Std Deviation 38.2 RDW Coeff of Chris 11.9 Plt Count 276 MPV 10.3 Immature Gran % (Auto) 0.300 Neut % (Auto) 87.9 H Lymph % (Auto) 5.4 L [place] % (Auto) 4.8 Eos % (Auto) 1.5 Baso % (Auto) 0.1 Absolute Neuts (auto) 13.7 H Absolute Lymphs (auto) 0.84 Nucleated RBC % 0 Differential Comment COMMENT Sodium 140 Potassium 5.1 Chloride 107 Carbon Dioxide 25.0 Anion Gap 8 BUN 29 H Creatinine 1.58 H Estim Creat Clear Calc 35.35 Est GFR (MDRD) Af Amer 43 L Est GFR (MDRD) Non-Af 36 L BUN/Creatinine Ratio 18.4 Glucose 291 H Lactic Acid Calcium 8.2 L Magnesium Cortisol Urine Color Urine Clarity Urine pH Ur Specific [place] Urine Protein Urine Glucose (UA) Urine Ketones Urine Occult Blood Urine Nitrite Urine Bilirubin Urine Urobilinogen Ur Leukocyte Esterase Urine RBC Urine WBC Ur Squamous Epith Cells Urine Bacteria Urine Mucus POC Glucose 270 H 11/07/19 11/07/19 11/07/19 09:25 09:34 12:41 WBC RBC Hgb Hct MCV MCH MCHC RDW Std Deviation RDW Coeff of Chris Plt Count MPV Immature Gran % (Auto) Neut % (Auto) Lymph % (Auto) [place] % (Auto) Eos % (Auto) Baso % (Auto) Absolute Neuts (auto) Absolute Lymphs (auto) Nucleated RBC % Differential Comment Sodium Potassium Chloride Carbon Dioxide Anion Gap BUN Creatinine Estim Creat Clear Calc Est GFR (MDRD) Af Amer Est GFR (MDRD) Non-Af BUN/Creatinine Ratio Glucose Lactic Acid 1.5 Calcium Magnesium Cortisol Urine Color Urine Clarity Urine pH Ur Specific [place] Urine Protein Urine Glucose (UA) Urine Ketones Urine Occult Blood Urine Nitrite Urine Bilirubin Urine Urobilinogen Ur Leukocyte Esterase Urine RBC Urine WBC Ur Squamous Epith Cells Urine Bacteria Urine Mucus POC Glucose 171 H 158 H 11/07/19 11/07/19 11/07/19 13:05 17:09 21:17 WBC RBC Hgb Hct MCV MCH MCHC RDW Std Deviation RDW Coeff of Chris Plt Count MPV Immature Gran % (Auto) Neut % (Auto) Lymph % (Auto) [place] % (Auto) Eos % (Auto) Baso % (Auto) Absolute Neuts (auto) Absolute Lymphs (auto) Nucleated RBC % Differential Comment Sodium Potassium Chloride Carbon Dioxide Anion Gap BUN Creatinine Estim Creat Clear Calc Est GFR (MDRD) Af Amer Est GFR (MDRD) Non-Af BUN/Creatinine Ratio Glucose Lactic Acid Calcium Magnesium Cortisol Pending Urine Color Urine Clarity Urine pH Ur Specific [place] Urine Protein Urine Glucose (UA) Urine Ketones Urine Occult Blood Urine Nitrite Urine Bilirubin Urine Urobilinogen Ur Leukocyte Esterase Urine RBC Urine WBC Ur Squamous Epith Cells Urine Bacteria Urine Mucus POC Glucose 138 H 246 H 11/08/19 11/08/19 04:15 04:15 WBC 10.5 RBC 2.61 L Hgb 7.5 L Hct 23.6 L MCV 90.4 MCH 28.7 MCHC 31.8 L RDW Std Deviation 38.8 RDW Coeff of Chris 11.9 Plt Count 223 MPV 10.0 Immature Gran % (Auto) 0.500 Neut % (Auto) 84.5 H Lymph % (Auto) 10.8 L [place] % (Auto) 3.6 Eos % (Auto) 0.5 Baso % (Auto) 0.1 Absolute Neuts (auto) 8.9 H Absolute Lymphs (auto) 1.14 Nucleated RBC % 0 Differential Comment Sodium 144 Potassium 3.5 Chloride 114 H Carbon Dioxide 26.0 Anion Gap 4 L BUN 18 Creatinine 0.99 Estim Creat Clear Calc 56.42 Est GFR (MDRD) Af Amer 74 Est GFR (MDRD) Non-Af 61 BUN/Creatinine Ratio 18.2 Glucose 187 H Lactic Acid Calcium 7.8 L Magnesium 2.0 Cortisol Urine Color Urine Clarity Urine pH Ur Specific [place] Urine Protein Urine Glucose (UA) Urine Ketones Urine Occult Blood Urine Nitrite Urine Bilirubin Urine Urobilinogen Ur Leukocyte Esterase Urine RBC Urine WBC Ur Squamous Epith Cells Urine Bacteria Urine Mucus POC Glucose Microbiology 11/07/19 04:35 Stool Enteric Bacteriology - Final 11/07/19 04:35 Stool C. difficile DNA Amplification - Final 11/07/19 04:35 Stool Stool Lactoferrin - Final Medical Necessity - Tobacco Use Smoking Status: Never smoker Assessment/Plan All Active Problems (Last Updated 11/07/19 @ 07:[address] Luigi Villalobos MD) Severe sepsis (Acute) Colitis (Acute) Proctitis (Acute) Dehydration (Acute) Hyperkalemia (Acute) Acute kidney injury (Acute) RECOMMENDATIONS: 1. Discontinue Midodrin 2. Continue empiric antibiotics 3. Monitor abdominal exam. Possible surgery consult for colonoscopy 4. Possibly discontinue Florinef tomorrow 5. Okay to leave the intensive care unit 6. Okay to transition to q. before meals and at bedtime blood sugar checks 7. Hemodynamically stable on room air. Will sign off from a critical care perspective IMPRESSIONS: 1. Severe sepsis secondary to colitis Exact etiology is unclear at this time. Patient has significant colitis noted on CT scan of the abdomen. Differential diagnosis would include infectious versus versus ischemic inflammatory bowel disease. Patient has had a 70 pound weight loss attributed to gastroparesis. Patient will likely need to be seen by surgery at some point for colonoscopy. Appears to be responding to therapy, so would continue antibiotics for now. Stool studies are negative. Okay to leave the intensive care unit 2. Acute kidney injury with hyperkalemia Resolved. Clinical suspicion for prerenal etiology. Unclear how long patient has been low on volume. This would be exacerbated by patient's baseline ibuprofen and lisinopril. This should be held. Continue to trend BMPs. No indication for renal replacement therapy at this time. 3. Diabetes mellitus with insulin dependence Hold basal insulin for now. Patient with a variable diet. We will continue with sliding scale insulin as necessary. 4. Hypertension Unclear etiology of patient being on Florinef, Midodrin and antihypertensives. Will hold midodrin therapy today. Likely okay to discontinue Florinef if continues to be hypertensive before initiation of antihypertensives.. Reasonable to obtain cortisol level. Previous echocardiograms have been unremarkable. However, patient does have hypertension, diabetes and other risk factors for coronary vascular disease. 5. Chronic hand pain/poor historian/hyperlipidemia/malnutrition/chronic pain syndrome Complicates care, management, recovery and prognosis. Continue to monitor closely. Patient is reportedly a full code. 6. Nonsustained V. tach Patient with episodes of nonsustained V. tach overnight. Potassium is within normal range, but will supplement to get greater than 4. Defer to hospitalist on whether cardiology needs to be involved. Inpatient E&M: 27654 Subs Hosp L2
[2019-11-08] MEDS: Insulin Lispro 100 UNIT/ML INSULN.PEN SC ×4 (08:54→21:04)
[2019-11-08] MEDS: Enoxaparin 30 MG/0.3 ML Syringe SC (08:55)
[2019-11-08] MEDS: Pantoprazole Sodium 40 MG Tablet PO (08:55)
[2019-11-08] MEDS: Aspirin 81 MG TAB.CHEW PO (08:56)
[2019-11-08] MEDS: Fludrocortisone Acetate 0.1 MG Tablet PO (08:56)
[2019-11-08] MEDS: Ensure Clear 120 ML Liquid PO ×2 (09:00→15:16)
[2019-11-08] MEDS: traMADol 50 MG Tablet PO ×2 (09:00→20:59)
[2019-11-08 09:01] LABS: Bedside Glucose 174 mg/dL (70-110)
--- NOTE | 2019-11-08 09:30 | PN_ITS ---
Patient Problems: Active and Suspected Problems (Last Updated 11/07/19 @ 07:[address] Luigi Villalobos MD) Severe sepsis (Acute) Colitis (Acute) Proctitis (Acute) Dehydration (Acute) Hyperkalemia (Acute) Acute kidney injury (Acute) Subjective: Chief complaint: Follow-up after admission for severe sepsis attributed to acute colitis/proctitis, found to have acute kidney injury with hyperkalemia and she developed anemia. Patient seen and examined. Nursing staff reported that she had several episodes of nonsustained V. tach and she was asymptomatic during the event. This morning, she is alert, oriented x3. She denied any abdominal pain. She denied nausea or vomiting. She denied chest pain or shortness of breath. She had no more diarrhea. She denied fever or chills. She has been afebrile, heart rate has been around 100, blood pressure started to go up and it is up to 160 systolic. Her pulse ox is 94% on room air. - Physical Exam Vitals/I&O's: Vital Signs Temp Pulse Resp BP Pulse Ox 98.3 F 100 15 142/68 H 93 11/08/19 04:00 11/08/19 06:00 11/08/19 06:00 11/08/19 06:00 11/08/19 06:55 Oxygen Delivery Method Room Air Weight: 148 lb 12.992 oz Body Mass Index (BMI) 24.9 Finger Stick Blood Glucose 412 Intake and Output for Last 24 Hours 11/06/19 11/07/19 11/08/19 23:59 23:59 23:59 Intake Total 5413.53 / 5413.53 2255.0 / 2255.0 Output Total 650 / 650 1200 / 1200 Balance 4763.53 / 4763.53 1055.0 / 1055.0 General: Alert, Oriented x3, Cooperative, No apparent distress HEENT: Atraumatic, PERRLA, EOMI, Normocephalic Oral: Moist Mucosa, No Gingival or Mucosal Lesions/ Ulcerations Neck: Supple, No JVD, Negative Carotid Bruits, Trachea Midline, Thyroid Normal Size and Texture Lungs: Clear to auscultation, Normal air movement, No rhonchi, No wheeze, No rales, Diminished Cardiovascular: Regular rate, Regular Rhythm, Normal S1, Normal S2, PMI Normal, Tachycardic Abdomen: Soft, Non Tender, Non-Distended, No Hepato-splenomegaly Extremities: No clubbing, No cyanosis, No edema Skin: No rashes, No breakdown Lymphatic: No Cervical, Supraclavicular, or Inguinal Adenopathy Neurological: Cranial nerves II-XII grossly intact, Neuro grossly intact Psych/Mental Status: Normal Affect, Appropriate, Alert and oriented to time, place, person, mood and affect Microbiology Past 72 Hours 11/07/19 04:35 Stool Enteric Bacteriology - Final 11/07/19 04:35 Stool C. difficile DNA Amplification - Final 11/07/19 04:35 Stool Stool Lactoferrin - Final Laboratory Results 11/07/19 09:25: POC Glucose 171 H 11/07/19 09:34: Lactic Acid 1.5 11/07/19 12:41: POC Glucose 158 H 11/07/19 13:05: Cortisol Pending 11/07/19 17:09: POC Glucose 138 H 11/07/19 21:17: POC Glucose 246 H 11/08/19 04:15: WBC 10.5, RBC 2.61 L, Hgb 7.5 L, Hct 23.6 L, MCV 90.4, MCH 28.7, MCHC 31.8 L, RDW Std Deviation 38.8, RDW Coeff of Chris 11.9, Plt Count 223, MPV 10.0, Immature Gran % (Auto) 0.500, Neut % (Auto) 84.5 H, Lymph % (Auto) 10.8 L, [place] % (Auto) 3.6, Eos % (Auto) 0.5, Baso % (Auto) 0.1, Absolute Neuts (auto) 8.9 H, Absolute Lymphs (auto) 1.14, Nucleated RBC % 0 11/08/19 04:15: Sodium 144, Potassium 3.5, Chloride 114 H, Carbon Dioxide 26.0, Anion Gap 4 L, BUN 18, Creatinine 0.99, Estim Creat Clear Calc 56.42, Est GFR (MDRD) Af Amer 74, Est GFR (MDRD) Non-Af 61, BUN/Creatinine Ratio 18.2, Glucose 187 H, Calcium 7.8 L, Magnesium 2.0 11/08/19 08:53: POC Glucose 174 H Current Medications Acetaminophen (Tylenol) 650 mg PO Q6H PRN PRN PRN Reason: Pain Score 1-10/Temp > 100.7 F Albuterol Sulfate (Ventolin Aerosols) 2.5 mg INHALATION Q2H PRN PRN PRN Reason: SOB/Wheezing Aspirin (Aspirin, Baby) 81 mg PO DAILY@0800 [facility] Last Admin: 11/08/19 08:56 Dose: 81 mg Documented by: Atorvastatin Calcium (Lipitor) 40 mg PO QHS [facility] Last Admin: 11/07/19 21:09 Dose: 40 mg Documented by: Dextrose (D50w Syringe) 0 gm IV X1 PRN; Protocol PRN Reason: Hypoglycemia Enoxaparin Sodium (Lovenox) 30 mg SC DAILY [facility] Last Admin: 11/08/19 08:55 Dose: 30 mg Documented by: Fludrocortisone Acetate (Florinef) 0.1 mg PO DAILYCM [facility] Last Admin: 11/08/19 08:56 Dose: 0.1 mg Documented by: Glucagon () 1 mg IM .X1 PRN PRN Reason: Hypoglycemia Ciprofloxacin (Cipro) 400 mg in 200 mls @ 200 mls/hr IV Q24@2200 [facility] Last Infusion: 11/07/19 23:21 Dose: Infused Documented by: Metronidazole (Flagyl) 500 mg in 100 mls @ 100 mls/hr IV Q8 [facility] Last Infusion: 11/08/19 06:35 Dose: Infused Documented by: Sodium Chloride () 250 mls @ 15 mls/hr IV .[id number] PRN PRN Reason: Saline Flush Sodium Chloride () 250 mls @ 15 mls/hr IV .[id number] PRN PRN Reason: Additional IVPB Infusion Insulin Glargine (Lantus (Bkc)) 20 units SC QHS [facility] Last Admin: 11/07/19 21:22 Dose: Not Given Documented by: Insulin Human Lispro (Humalog Kwikpen (Bkc)) 0 unit SC ACHS [facility]; Protocol Last Admin: 11/08/19 08:54 Dose: 2 units Documented by: Nutritional Formula (Lactose Free) (Ensure Clear) 120 ml PO 4X/DAY [facility] Last Admin: 11/08/19 09:00 Dose: 120 ml Documented by: Ondansetron HCl (Zofran) 4 mg IV Q8H PRN PRN PRN Reason: NAUSEA/VOMITING Pantoprazole Sodium (Protonix) 40 mg PO DAILY [facility] Last Admin: 11/08/19 08:55 Dose: 40 mg Documented by: Pregabalin (Lyrica) 50 mg PO TID [facility] Last Admin: 11/08/19 05:39 Dose: 50 mg Documented by: Sodium Chloride () 10 - 40 ml IV UD PRN PRN Reason: SALINE FLUSH Tramadol HCl (Ultram) 50 mg PO BID [facility] Last Admin: 11/08/19 09:00 Dose: 50 mg Documented by: Medical Necessity - Tobacco Use Smoking Status: Never smoker Assessment/Plan All Active Problems (Last Updated 11/07/19 @ 07:[address] Luigi Villalobos MD) Severe sepsis (Acute) Colitis (Acute) Proctitis (Acute) Dehydration (Acute) Hyperkalemia (Acute) Acute kidney injury (Acute) This is a 59 years old female patient presented to the emergency room because of nausea, vomiting and diarrhea and she was found to have severe sepsis secondary to acute colitis/proctitis which was complicated by acute kidney injury and hyperkalemia and later, she developed anemia. #1 severe sepsis: Secondary to colitis. She is on IV ciprofloxacin and Flagyl. She has been afebrile, leukocytosis resolved. Blood pressure improved and even higher today. Urine culture showed no growth. Blood cultures pending. She is tolerating clear liquids. Plan: Continue same treatment, advance diet as tolerated, possible transfer to PCU later today. #2 acute colitis/proctitis: It is probably infectious versus ischemic bowel disease which is less likely. She is on IV ciprofloxacin and Flagyl as above. She has been afebrile, blood pressure elevated today. Stool was negative for C. difficile and enteric pathogens. She denied any more abdominal pain, no nausea or vomiting and no more diarrhea. She is tolerating clear liquids. Plan to continue same treatment. #3 acute kidney injury/hyperkalemia: Secondary to severe sepsis and colitis. Potassium is back to normal, it is 3.5 today. Admission creatinine was 1.96, came down to 0.99 today. Improving. Patient is tolerating diet. Will discontinue IV fluids, advance diet as tolerated. #4 anemia: This is fairly acute. In the past, hemoglobin has been fluctuating anywhere from 11 to 14 g/dL. Admission hemoglobin was 9.8, came down to 7.5 today. This is probably because of the colitis and hemodilution. Patient never received blood transfusion in the past. Plan to discontinue IV fluids, repeat CBC tomorrow morning, transfuse if hemoglobin remained below 8 g/dL tomorrow. #5 nonsustained V. tach: Patient was asymptomatic during the event. Currently, heart rate has been around 100, sinus tachycardia. Serum potassium is 3.5 and she has been on potassium supplement. Serum magnesium is 2 which is normal. Plan to monitor. #6 uncontrolled hypertension/orthostatic hypotension: Patient has been on ant ihypertensive medications as well as midodrine and Florinef. According to the patient, she was started on Florinef 1 year ago for orthostatic hypotension. Yesterday, her blood pressure was low, systolic was in the 80s. Today blood pressure is elevated at systolic has been around 150s to 160s. At home, she patient has been on clonidine, Cardizem and lisinopril. Currently, she is only on Florinef. Serum cortisol is pending. 2D echocardiogram revealed ejection fraction of 65%, other findings reviewed. If blood pressure remains on the higher side, we need to discontinue Florinef tomorrow and restart some of her antihypertensive medications. Plan to discontinue Florinef if her blood pressure still high tomorrow, will do orthostatic vitals tomorrow morning. #7 type 2 diabetes mellitus: Blood sugar has been stable, she is on clear liquids. Continue Lantus nightly, and sliding scale. #8 hyperlipidemia: Continue statins. #9 DVT prophylaxis: Subcu Lovenox. This note was generated with [employer]ee[employer] dictation software. It may contain incorrect words, spelling, and punctuation that were not noted in checking the note before signing. Inpatient E&M: 65756 Subs Hosp L2
[2019-11-08 13:01] LABS: Bedside Glucose 225 mg/dL (70-110)
[2019-11-08 17:05] LABS: Bedside Glucose 208 mg/dL (70-110)
[2019-11-08] MEDS: Atorvastatin Calcium 40 MG Tablet PO (21:00)
[2019-11-08 21:20] LABS: Bedside Glucose 231 mg/dL (70-110)
[2019-11-08] MEDS: Ciprofloxacin 400 MG/200 ML BAG 200 MG IV (22:25)
[2019-11-09] VITALS (22 sets, daily range): BP systolic 116–175; BP diastolic 62–106; PULSE 80–101; RESP 10–18; TEMP 36.7–37; O2SAT 94–100
[2019-11-09] MEDS: 0.9% Saline Lock 10 ML Syringe IV ×2 (03:28→23:01)
[2019-11-09 03:31] LABS: Absolute Lymphocyte Count 1.19 X10^3/uL (0.83-4.51); Absolute Neutrophil Count 5.9 X10^3/uL (2.0-7.7); Basophil# 0.01 X10^3/uL; Basophil% 0.1 % (0-1); Eosinophils% 1.3 % (0-5); Hematocrit 24.2 % (37-47); Hemoglobin 7.8 g/dL (12.0-15.0); Lymphocyte # 1.19 X10^3/ul (4.0); Lymphocyte % 15.8 % (19-41); Mean Corp Hgb Conc 32.2 g/dL (32-36); Mean Corpuscular Hgb 28.6 pg (27.0-32.0); Mean Corpuscular Volume 88.6 fL (81-99); Mean Platelet Vol. 9.6 fl (6.2-12.0); Monocyte# 0.28 X10^3/uL; Monocyte% 3.7 % (0-10); NRBC Flagged by Analyzer 0 % (0-5); Neutrophil % 78.6 % (47-70); Platelet Count 225 K/mm3 (150-450); RBC Distribution Width CV 11.9 % (11.6-14.6); Red Blood Count 2.73 M/mm3 (4.2-5.4); White Blood Count 7.5 K/mm3 (4.4-11.0)
[2019-11-09 03:45] LABS: Anion Gap 6 (5-15); BUN 9 mg/dL (7-18); BUN/Creat Ratio 11.3 RATIO (10-20); Calcium,Total 7.6 mg/dL (8.5-10.1); Chloride 116 mmol/L (98-107); Creatinine, Serum 0.79 mg/dL (0.55-1.02); EST Glomerular Filtration Rate 79 mL/min (>60); Est Glom Filt Rate - Afr Amer 96 mL/min (>60); Glucose 269 mg/dL (74-106); Potassium 3.6 mmol/L (3.5-5.1); Sodium Level 148 mmol/L (136-145)
[2019-11-09] MEDS: Pregabalin 50 MG Capsule PO ×3 (05:17→22:53)
[2019-11-09] MEDS: metroNIDAZOLE 500 MG/100 ML BAG 100 MG IV ×3 (05:17→22:45)
[2019-11-09] MEDS: Insulin Lispro 100 UNIT/ML INSULN.PEN SC ×4 (08:59→22:49)
[2019-11-09 09:00] LABS: Bedside Glucose 292 mg/dL (70-110)
[2019-11-09] MEDS: Ondansetron 4 MG/2 ML Vial IV ×2 (09:03→22:52)
--- NOTE | 2019-11-09 09:13 | PN_ITS ---
Patient Problems: Active and Suspected Problems (Last Updated 11/07/19 @ 07:[address] Luigi Villalobos MD) Severe sepsis (Acute) Colitis (Acute) Proctitis (Acute) Dehydration (Acute) Hyperkalemia (Acute) Acute kidney injury (Acute) Subjective: Diarrhea is better. Some nausea today but no emesis. Is feeling better overall since admission. Orthostatics were + with standing today. Vitals/I&O's: Vital Signs Temp Pulse Resp BP Pulse Ox 98.4 F 94 12 163/93 H 95 11/09/19 04:00 11/09/19 06:00 11/09/19 06:00 11/09/19 06:00 11/09/19 07:21 Oxygen Delivery Method Room Air Weight: 71.4 kg Body Mass Index (BMI) 24.9 Finger Stick Blood Glucose 412 Orthostatic Vital Signs Start: 11/08/19 23:22 Freq: q24h Status: Active Protocol: Activity Type Activity Date Activity User E-Sign Co-Sign Detail Recorded Client Recorded Date Recorded By Document 11/09/19 04:45 AW [id number] 11/09/19 04:54 AW 11/09/19 04:45 Orthostatic Vitals Standing -Blood Pressure (90/60-120/80) 128/74 H -Extremity Use Left Arm -Pulse Rate (60-100) 101 H Sitting -Blood Pressure (90/60-120/80) 146/88 H -Extremity Use Left Arm -Pulse Rate (60-100) 95 Lying -Blood Pressure (90/60-120/80) 151/106 H -Extremity Use Left Arm -Pulse Rate (60-100) 92 Intake and Output for Last 24 Hours 11/07/19 11/08/19 11/09/19 23:59 23:59 23:59 Intake Total 5413.53 / 5413.53 2970.25 / 2970.25 308 / 308 Output Total 650 / 650 2200 / 2200 450 / 450 Balance 4763.53 / 4763.53 770.25 / 770.25 -142 / -142 General: Alert, Oriented x3, Cooperative, No apparent distress, Well developed, Well nourished, - - WF lying in bed, appears older than stated age, appears comfortable HEENT: Atraumatic, PERRLA, EOMI, Normocephalic, EAC Clear Oral: Moist Mucosa, No Gingival or Mucosal Lesions/ Ulcerations, - - edentulous Neck: Supple, No JVD, Negative Hepatojugular Reflux, No Nodes, No Nuchal Rigidity, Trachea Midline, Thyroid Normal Size and Texture Lungs: Clear to auscultation, Normal air movement, No rhonchi, No wheeze, No rales Cardiovascular: Regular rate, Regular Rhythm, Normal S1, Normal S2, No murmurs, No Ectopic Activity, Gallops - S4, No rub noted Abdomen: Bowel Sounds Present, Soft, Non-Distended, No Hepato-splenomegaly, Tender - mild tenderness, No hernias noted Extremities: No clubbing, No cyanosis, Capillary Refill Less than 3 Seconds, No Calf Tenderness, Edema - 1+ B LE edema Skin: No rashes, Ulcer/ Wound - L LE/Foot with breakdown and dressing in place Musculoskeletal: No Tenderness to Palpation of Joints or Extremities, No Muscle Wasting Lymphatic: No Cervical, Supraclavicular, or Inguinal Adenopathy Neurological: Cranial nerves II-XII grossly intact, Neuro grossly intact, Motor Exam 5/5 strength throughout, Muscle tone normal, Sensory exam intact to light touch and pain, Coordination normal Psych/Mental Status: Normal Affect, Appropriate, Alert and oriented to time, place, person, mood and affect Microbiology Past 72 Hours 11/07/19 01:00 Blood Culture (Wb) - Left Hand Blood Culture - Preliminary No growth in 48 hours. 11/07/19 00:45 Blood Culture (Wb) - Anticubital Left Blood Culture - Preliminary No growth in 48 hours. 11/07/19 01:30 Urine Catheter - Catheter Urine Culture - Preliminary Culture exhibits no growth. 11/07/19 04:35 Stool Enteric Bacteriology - Final 11/07/19 04:35 Stool C. difficile DNA Amplification - Final 11/07/19 04:35 Stool Stool Lactoferrin - Final Laboratory Results 11/08/19 12:51: POC Glucose 225 H 11/08/19 16:56: POC Glucose 208 H 11/08/19 20:58: POC Glucose 231 H 11/09/19 03:25: WBC 7.5, RBC 2.73 L, Hgb 7.8 L, Hct 24.2 L, MCV 88.6, MCH 28.6, MCHC 32.2, RDW Std Deviation 38.0, RDW Coeff of Chris 11.9, Plt Count 225, MPV 9.6, Immature Gran % (Auto) 0.500, Neut % (Auto) 78.6 H, Lymph % (Auto) 15.8 L, Ray % (Auto) 3.7, Eos % (Auto) 1.3, Baso % (Auto) 0.1, Absolute Neuts (auto) 5.9, Absolute Lymphs (auto) 1.19, Nucleated RBC % 0 11/09/19 03:25: Sodium 148 H, Potassium 3.6, Chloride 116 H, Carbon Dioxide 26.0, Anion Gap 6, BUN 9, Creatinine 0.79, Estim Creat Clear Calc 70.70, Est GFR (MDRD) Af Amer 96, Est GFR (MDRD) Non-Af 79, BUN/Creatinine Ratio 11.3, Glucose 269 H, Calcium 7.6 L 11/09/19 08:50: POC Glucose 292 H Current Medications Acetaminophen (Tylenol) 650 mg PO Q6H PRN PRN PRN Reason: Pain Score 1-10/Temp > 100.7 F Albuterol Sulfate (Ventolin Aerosols) 2.5 mg INHALATION Q2H PRN PRN PRN Reason: SOB/Wheezing Aspirin (Aspirin, Baby) 81 mg PO DAILY@0800 [facility] Last Admin: 11/08/19 08:56 Dose: 81 mg Documented by: Atorvastatin Calcium (Lipitor) 40 mg PO QHS [facility] Last Admin: 11/08/19 21:00 Dose: 40 mg Documented by: Dextrose (D50w Syringe) 0 gm IV X1 PRN; Protocol PRN Reason: Hypoglycemia Enoxaparin Sodium (Lovenox) 30 mg SC DAILY [facility] Last Admin: 11/08/19 08:55 Dose: 30 mg Documented by: Fludrocortisone Acetate (Florinef) 0.1 mg PO DAILYCM [facility] Last Admin: 11/08/19 08:56 Dose: 0.1 mg Documented by: Glucagon () 1 mg IM .X1 PRN PRN Reason: Hypoglycemia Ciprofloxacin (Cipro) 400 mg in 200 mls @ 200 mls/hr IV Q24@2200 [facility] Last Infusion: 11/08/19 23:25 Dose: Infused Documented by: Metronidazole (Flagyl) 500 mg in 100 mls @ 100 mls/hr IV Q8 [facility] Last Infusion: 11/09/19 06:17 Dose: Infused Documented by: Sodium Chloride () 250 mls @ 15 mls/hr IV .[id number] PRN PRN Reason: Saline Flush Last Infusion: 11/09/19 06:17 Dose: 15 mls/hr Documented by: Sodium Chloride () 250 mls @ 15 mls/hr IV .[id number] PRN PRN Reason: Additional IVPB Infusion Insulin Glargine (Lantus (Bkc)) 20 units SC QHS [facility] Last Admin: 11/08/19 21:04 Dose: 20 units Documented by: Insulin Human Lispro (Humalog Kwikpen (Bkc)) 0 unit SC ACHS [facility]; Protocol Last Admin: 11/09/19 08:59 Dose: 6 units Documented by: Nutritional Formula (Brian - [place] Flavor) [facility] Nutritional Formula (Lactose Free) (Ensure Clear) 120 ml PO 4X/DAY [facility] Last Admin: 11/08/19 21:18 Dose: Not Given Documented by: Ondansetron HCl (Zofran) 4 mg IV Q8H PRN PRN PRN Reason: NAUSEA/VOMITING Last Admin: 11/09/19 09:03 Dose: 4 mg Documented by: Pantoprazole Sodium (Protonix) 40 mg PO DAILY [facility] Last Admin: 11/08/19 08:55 Dose: 40 mg Documented by: Pregabalin (Lyrica) 50 mg PO TID [facility] Last Admin: 11/09/19 05:17 Dose: 50 mg Documented by: Sodium Chloride () 10 - 40 ml IV UD PRN PRN Reason: SALINE FLUSH Last Admin: 11/09/19 03:28 Dose: 30 ml Documented by: Tramadol HCl (Ultram) 50 mg PO BID [facility] Last Admin: 11/08/19 20:59 Dose: 50 mg Documented by: STROKE Vital Signs/Narrative: Vital Signs Pulse Resp BP Pulse Ox 11/09/19 07:21 95 11/09/19 06:00 94 12 163/93 H 96 Medical Necessity - Tobacco Use Smoking Status: Never smoker Assessment/Plan All Active Problems (Last Updated 11/07/19 @ 07:[address] Luigi Villalobos MD) Severe sepsis (Acute) Colitis (Acute) Proctitis (Acute) Dehydration (Acute) Hyperkalemia (Acute) Acute kidney injury (Acute) Severe Sepsis 2/2 Colitis -resolved -BP elevated now -Blood cx and Urine cx is neg -continue CLD today with nausea and advance to [place] tomorrow if tolerates -continue Cipro and Flagyl -transfer PCU Acute Colitis -CT form 11/06 shows Thick walled and edematous appearance of the colon -C-diff is neg -Fecal Panel is neg -Stool Lactoferrin is + indicating likely inflammatory or infectious etiology -continue ABX -diarrhea is improving -nausea could be antibiotic related NSVT -no further issues since yesterday -asymptomatic -will restart cardizem and monitor on tele in PCU -Keep K > 4 and Mag > 2 -give 40 po K and recheck in am--> check am mag -if re-occures will have pt seen by cards -ECHO done and EF 65% Anemia -chronic and stable -no s/o bleeding ALMA -resolved Hyperkalemia 2/2 ALMA -resolved HTN/Orthostatic Hypotension -restart home meds -pt remains orthostatic with standing on vitals -continue florinef and may need to restart Midodrine if orthostatics remain + in am DM-2 -increase lantus to 30 u -SSI -may need to add log -continue CLD for now HPL -continue Statin Hypernatremia/Hyperchloremia -no IVF--> D/C yesterday -repeat in am DVT Prophylaxis -Lovenox daily Code Status -Full Inpatient E&M: 33126 [facility] Hosp L3
[2019-11-09] MEDS: Enoxaparin 30 MG/0.3 ML Syringe SC (10:44)
[2019-11-09] MEDS: Pantoprazole Sodium 40 MG Tablet PO (10:45)
[2019-11-09] MEDS: Fludrocortisone Acetate 0.1 MG Tablet PO (10:45)
[2019-11-09] MEDS: Aspirin 81 MG TAB.CHEW PO (10:45)
[2019-11-09] MEDS: traMADol 50 MG Tablet PO ×2 (10:47→22:51)
[2019-11-09] MEDS: dilTIAZem CD 180 MG Capsule PO (11:28)
[2019-11-09] MEDS: Lisinopril 20 MG Tablet PO ×2 (11:28→22:51)
[2019-11-09 11:36] LABS: Bedside Glucose 206 mg/dL (70-110)
--- NOTE | 2019-11-09 12:00 | CASEMGMT ---
Addendum entered by Jennifer Morris 11/09/19 13:50: Pt also sees Dr. Phelps for PM. Marialuisa POWERS CM Original Note: PRIYA SILVA assessment: Face to Face with patient for initial transition planning/care coordination assessment. RN SHIRA introduced self and role at [facility], pt voices understanding and consents to assessment at this time. Pt is sitting up in bed in no distress at this time. Pt is A/Ox4 at this time and answers all questions appropriately at this time. Care providers, pharmacy, and demographics verified at this time. Presentation: Pt c/o high blood sugar/vomiting that started yesterday-EMS reported 480 bld sugar Admitting dx: Severe sepsis PCP: Zach Specialists: jones López Pharmacy: [facility] Insurance: [facility] Prescription Benefit: [facility] Living Will/HPOA: Pt states does not have LW/HPOA and is interested in completing at this time. Gaston BURRELL aware, voices understanding LNOK: Karri Guthrie, sig other Living Arrangements: Pt states lives with sig other in 1 story duplex with 2 railed steps in and states no concerns at home at this time. Pt states is normally independent with ADL's. Transportation: Pt states sig other drives and states no transportation concerns at this time. DME/HHC: Pt states has the following DME: tub bench, grab bars, walker, w/c, rollater, and high back w/c. Pt states no need for any further DME at this time. Pt states has had [facility] in the past and declines SNF in the past. Pt declines need for HHC at discharge this visit, stating 'I don't need ppl in my house and Karri will take care of me.' Pt states no concerns with going home at time of discharge. Pt states is on disability. Pt states does not smoke or drink ETOH. Pt states no further concerns/needs at this time. CM to follow for any further discharge planning/needs at this time. Advised pt to ask for CM if any further questions/concerns/needs at this time, voices understanding. Pt Goal: Home Plan: Home Marialuisa POWERS CM
[2019-11-09] MEDS: cloNIDine HCl 0.2 MG Tablet PO ×2 (13:03→23:02)
--- NOTE | 2019-11-09 13:36 | CASEMGMT ---
Per RN CM patient would like to complete a Healthcare Power of Mva Operator. SW met with patient, introduced self and role at [facility]. SW asked patient about completing a Healthcare Power of Mva Operator. She said she would, but not right now. SW gave her the documents and told her if she changes her mind and wants to do them she can always ask for Social Work. SW also told her SW will check back with her tomorrow. Heike BENNETT MSW
--- NOTE | 2019-11-09 14:22 | NURSING ---
wound photo: left heel
[2019-11-09 16:26] LABS: Bedside Glucose 181 mg/dL (70-110)
[2019-11-09] MEDS: Atorvastatin Calcium 40 MG Tablet PO (22:51)
[2019-11-09 23:05] LABS: Bedside Glucose 254 mg/dL (70-110)
[2019-11-09] MEDS: Ciprofloxacin 400 MG/200 ML BAG 200 MG IV (23:55)
[2019-11-10] VITALS (12 sets, daily range): BP systolic 87–150; BP diastolic 57–88; PULSE 73–89; RESP 18; TEMP 36.5–36.8; O2SAT 92–98
[2019-11-10] MEDS: 0.9% Saline Lock 10 ML Syringe IV ×3 (01:04→22:26)
[2019-11-10 03:35] LABS: Bedside Glucose 168 mg/dL (70-110)
[2019-11-10] MEDS: Pregabalin 50 MG Capsule PO ×3 (05:05→22:18)
[2019-11-10] MEDS: metroNIDAZOLE 500 MG/100 ML BAG 100 MG IV ×3 (05:05→23:31)
[2019-11-10 06:40] LABS: Bedside Glucose 120 mg/dL (70-110)
[2019-11-10 07:32] LABS: ALB/GLOB Ratio 0.5 RATIO (0.9-2.4); AST(SGOT) 13 U/L (15-37); Alanine Aminotransfer ALT/SGPT 14 U/L (13-56); Albumin, Serum 1.6 g/dL (3.2-5.0); Alkaline Phosphatase 105 U/L (45-117); Anion Gap 5 (5-15); BUN 8 mg/dL (7-18); BUN/Creat Ratio 10.6 RATIO (10-20); Calcium,Total 7.7 mg/dL (8.5-10.1); Chloride 107 mmol/L (98-107); Creatinine, Serum 0.75 mg/dL (0.55-1.02); EST Glomerular Filtration Rate 84 mL/min (>60); Est Glom Filt Rate - Afr Amer 102 mL/min (>60); Estimated Creatinine Clearance 74.47 ml/min; Globulin 3.1 g/dL (2.2-4.2); Glucose 131 mg/dL (74-106); Magnesium 1.6 mg/dL (1.6-2.6); Potassium 3.3 mmol/L (3.5-5.1); Protein, Total 4.7 g/dL (6.4-8.2); Sodium Level 140 mmol/L (136-145)
[2019-11-10] MEDS: Ondansetron 4 MG/2 ML Vial IV (08:00)
[2019-11-10] MEDS: Lisinopril 20 MG Tablet PO ×2 (09:35→22:19)
[2019-11-10] MEDS: Fludrocortisone Acetate 0.1 MG Tablet PO (09:35)
[2019-11-10] MEDS: Aspirin 81 MG TAB.CHEW PO (09:36)
[2019-11-10] MEDS: Pantoprazole Sodium 40 MG Tablet PO (09:36)
[2019-11-10] MEDS: dilTIAZem CD 180 MG Capsule PO (09:36)
[2019-11-10] MEDS: Enoxaparin 30 MG/0.3 ML Syringe SC (09:36)
[2019-11-10] MEDS: traMADol 50 MG Tablet PO ×2 (09:39→22:18)
[2019-11-10 11:26] LABS: Bedside Glucose 108 mg/dL (70-110)
--- NOTE | 2019-11-10 11:43 | PN_ITS ---
Patient Problems: Active and Suspected Problems (Last Updated 11/07/19 @ 07:[address] Luigi Villalobos MD) Severe sepsis (Acute) Colitis (Acute) Proctitis (Acute) Dehydration (Acute) Hyperkalemia (Acute) Acute kidney injury (Acute) Subjective: Pt states that she is feeling better and wants to go home. Feels nauseated when up and moving around still. Would like to try reg food. Stool much better but still loose. Vitals/I&O's: Vital Signs Temp Pulse Resp BP Pulse Ox 98 F 84 18 137/79 H 93 11/10/19 09:32 11/10/19 09:32 11/10/19 09:32 11/10/19 09:32 11/10/19 09:32 Oxygen Delivery Method Room Air Weight: 71.8 kg Body Mass Index (BMI) 24.9 Finger Stick Blood Glucose 412 Orthostatic Vital Signs Start: 11/08/19 23:22 Freq: q24h Status: Active Protocol: Activity Type Activity Date Activity User E-Sign Co-Sign Detail Recorded Client Recorded Date Recorded By Document 11/10/19 04:56 [id number] 11/10/19 05:01 TM 11/10/19 04:56 Orthostatic Vitals Standing -Blood Pressure (90/60-120/80) 87/57 L -Extremity Use Left Arm -Pulse Rate (60-100) 89 Sitting -Blood Pressure (90/60-120/80) 98/88 H -Extremity Use Left Arm -Pulse Rate (60-100) 85 Lying -Blood Pressure (90/60-120/80) 118/78 -Extremity Use Left Arm -Pulse Rate (60-100) 77 Intake and Output for Last 24 Hours 11/08/19 11/09/19 11/10/19 23:59 23:59 23:59 Intake Total 2970.25 / 2970.25 1606.75 / 1606.75 820 / 820 Output Total 2200 / 2200 1925 / 1925 650 / 650 Balance 770.25 / 770.25 -318.25 / -318.25 170 / 170 General: Alert, Oriented x3, Cooperative, No apparent distress, Well developed, Well nourished, - - WF, appears younger than stated age, sitting up in bed watching TV HEENT: Atraumatic, PERRLA, EOMI, Normocephalic, EAC Clear Oral: Moist Mucosa, No Gingival or Mucosal Lesions/ Ulcerations Neck: Supple, Trachea Midline, Thyroid Normal Size and Texture Lungs: Clear to auscultation, Normal air movement, No rhonchi, No wheeze, No rales Cardiovascular: Regular rate, Regular Rhythm, Normal S1, Normal S2, No murmurs, No Ectopic Activity, No rub noted, No Gallop Abdomen: Bowel Sounds Present, Soft, Non Tender, Non-Distended, Passing Flatus, No hernias noted Extremities: No clubbing, No cyanosis, No edema, Capillary Refill Less than 3 Seconds Skin: No rashes, No breakdown Musculoskeletal: No Tenderness to Palpation of Joints or Extremities, No Muscle Wasting Lymphatic: No Cervical, Supraclavicular, or Inguinal Adenopathy Neurological: Cranial nerves II-XII grossly intact, Neuro grossly intact, Muscle tone normal, Sensory exam intact to light touch and pain, Coordination normal Psych/Mental Status: Normal Affect, Appropriate, Alert and oriented to time, place, person, mood and affect Microbiology Past 72 Hours 11/07/19 01:30 Urine Catheter - Catheter Urine Culture - Final Culture exhibits no growth. 11/07/19 01:00 Blood Culture (Wb) - Left Hand Blood Culture - Preliminary No growth in 48 hours. 11/07/19 00:45 Blood Culture (Wb) - Anticubital Left Blood Culture - Preliminary No growth in 48 hours. 11/07/19 04:35 Stool Enteric Bacteriology - Final Laboratory Results 11/07/19 13:05: Cortisol 17.50 11/09/19 16:12: POC Glucose 181 H 11/09/19 22:44: POC Glucose 254 H 11/10/19 03:32: POC Glucose 168 H 11/10/19 06:30: Sodium 140, Potassium 3.3 L, Chloride 107, Carbon Dioxide 28.0, Anion Gap 5, BUN 8, Creatinine 0.75, Estim Creat Clear Calc 74.47, Est GFR (MDRD) Af Amer 102, Est GFR (MDRD) Non-Af 84, BUN/Creatinine Ratio 10.6, Glucose 131 H, Calcium 7.7 L, Magnesium 1.6, Total Bilirubin 0.20, AST 13 L, ALT 14, Alkaline Phosphatase 105, Total Protein 4.7 L, Albumin 1.6 L, Globulin 3.1, Albumin/Globulin Ratio 0.5 L 11/10/19 06:33: POC Glucose 120 H 11/10/19 11:09: POC Glucose 108 Current Medications Acetaminophen (Tylenol) 650 mg PO Q6H PRN PRN PRN Reason: Pain Score 1-10/Temp > 100.7 F Albuterol Sulfate (Ventolin Aerosols) 2.5 mg INHALATION Q2H PRN PRN PRN Reason: SOB/Wheezing Aspirin (Aspirin, Baby) 81 mg PO DAILY@0800 [facility] Last Admin: 11/10/19 09:36 Dose: 81 mg Documented by: Atorvastatin Calcium (Lipitor) 40 mg PO QHS [facility] Last Admin: 11/09/19 22:51 Dose: 40 mg Documented by: Clonidine (Catapres) 0.2 mg PO TID [facility] Last Admin: 11/10/19 06:03 Dose: Not Given Documented by: Dextrose (D50w Syringe) 0 gm IV X1 PRN; Protocol PRN Reason: Hypoglycemia Diltiazem HCl (Cardizem Cd) 180 mg PO DAILY [facility] Last Admin: 11/10/19 09:36 Dose: 180 mg Documented by: Enoxaparin Sodium (Lovenox) 30 mg SC DAILY [facility] Last Admin: 11/10/19 09:36 Dose: 30 mg Documented by: Fludrocortisone Acetate (Florinef) 0.1 mg PO DAILYCM [facility] Last Admin: 11/10/19 09:35 Dose: 0.1 mg Documented by: Glucagon () 1 mg IM .X1 PRN PRN Reason: Hypoglycemia Ciprofloxacin (Cipro) 400 mg in 200 mls @ 200 mls/hr IV Q24@2200 [facility] Last Infusion: 11/10/19 01:01 Dose: Infused Documented by: Metronidazole (Flagyl) 500 mg in 100 mls @ 100 mls/hr IV Q8 [facility] Last Infusion: 11/10/19 07:15 Dose: Infused Documented by: Insulin Glargine (Lantus (Bkc)) 30 units SC QHS [facility] Last Admin: 11/09/19 22:50 Dose: 30 units Documented by: Insulin Human Lispro (Humalog Kwikpen (Bkc)) 0 unit SC ACHS [facility]; Protocol Last Admin: 11/10/19 11:16 Dose: Not Given Documented by: Lisinopril (Zestril) 20 mg PO BID [facility] Last Admin: 11/10/19 09:35 Dose: 20 mg Documented by: Nutritional Formula (Brian - [place] Flavor) 1 packet PO BIDCM [facility] Last Admin: 11/10/19 09:36 Dose: 1 packet Documented by: Nutritional Formula (Lactose Free) (Ensure Clear) 120 ml PO 4X/DAY [facility] Last Admin: 11/10/19 09:36 Dose: Not Given Documented by: Ondansetron HCl (Zofran) 4 mg IV Q8H PRN PRN PRN Reason: NAUSEA/VOMITING Last Admin: 11/10/19 08:00 Dose: 4 mg Documented by: Pantoprazole Sodium (Protonix) 40 mg PO DAILY [facility] Last Admin: 11/10/19 09:36 Dose: 40 mg Documented by: Pregabalin (Lyrica) 50 mg PO TID [facility] Last Admin: 11/10/19 05:05 Dose: 50 mg Documented by: Sodium Chloride () 10 - 40 ml IV UD PRN PRN Reason: SALINE FLUSH Last Admin: 11/10/19 08:00 Dose: 10 ml Documented by: Tramadol HCl (Ultram) 50 mg PO BID [facility] Last Admin: 11/10/19 09:39 Dose: 50 mg Documented by: STROKE Vital Signs/Narrative: Vital Signs Temp Pulse Resp BP Pulse Ox 11/10/19 09:32 98 F 84 18 137/79 H 93 Medical Necessity - Tobacco Use Smoking Status: Never smoker Assessment/Plan All Active Problems (Last Updated 11/07/19 @ 07:[address] Luigi Villalobos MD) Severe sepsis (Acute) Colitis (Acute) Proctitis (Acute) Dehydration (Acute) Hyperkalemia (Acute) Acute kidney injury (Acute) Severe Sepsis 2/2 Colitis -resolved -Blood cx and Urine cx is neg -advance to Regular today -continue Cipro and Flagyl and will d/c with 1 days worth Acute Colitis -CT form 11/06 shows Thick walled and edematous appearance of the colon -C-diff is neg -Fecal Panel is neg -Stool Lactoferrin is + indicating likely inflammatory or infectious etiology -continue ABX -diarrhea is improving -nausea could be antibiotic related -will need GI follow up as outpt -d/w pt NSVT -no further issues -asymptomatic -continue Cardizem -Keep K > 4 and Mag > 2 -give 40 BID today po K and recheck in am--> check am mag -if re-occures will have pt seen by cards -ECHO done and EF 65% Anemia -chronic and stable -no s/o bleeding HTN/Orthostatic Hypotension -continue -recheck am orthostatics -continue florinef and may need to restart Midodrine if orthostatics remain + in am DM-2 -continue lantus to 30 u -SSI -may need to add log -BGT better with additional lantus HPL -continue Statin Hypernatremia/Hyperchloremia -resolved DVT Prophylaxis -Lovenox daily Code Status -Full Inpatient E&M: 78721 Subs Hosp L3
[2019-11-10] MEDS: cloNIDine HCl 0.2 MG Tablet PO ×2 (13:18→22:18)
--- NOTE | 2019-11-10 15:37 | CASEMGMT ---
SW spoke with patient and her fiance regarding doing the Healthcare Power of Er Nurse paperwork. She did not want to do the documents at this time stating she is not thinking clearly right now. Heike BENNETT MSW
[2019-11-10 17:00] LABS: Bedside Glucose 131 mg/dL (70-110)
[2019-11-10] MEDS: Atorvastatin Calcium 40 MG Tablet PO (22:19)
[2019-11-10] MEDS: Ciprofloxacin 400 MG/200 ML BAG 200 MG IV (22:25)
[2019-11-10] MEDS: Insulin Lispro 100 UNIT/ML INSULN.PEN SC (22:29)
[2019-11-10 22:46] LABS: Bedside Glucose 286 mg/dL (70-110)
[2019-11-10] MEDS: BENZOCAINE/MENTHOL 1 LOZENGE MUCOUS MEM (23:27)
[2019-11-11 02:59] VITALS: PULSE 76
[2019-11-11 03:25] VITALS: BP 106/64; BP 130/82; BP 146/69; PULSE 83; PULSE 90; PULSE 93; RESP 18; TEMP 36.7; O2SAT 97
[2019-11-11] MEDS: metroNIDAZOLE 500 MG/100 ML BAG 100 MG IV ×2 (05:58→14:11)
[2019-11-11] MEDS: 0.9% Saline Lock 10 ML Syringe IV ×2 (05:58→14:11)
[2019-11-11] MEDS: Pregabalin 50 MG Capsule PO ×2 (06:00→14:11)
[2019-11-11] MEDS: cloNIDine HCl 0.2 MG Tablet PO ×2 (06:02→14:11)
[2019-11-11 06:26] LABS: Absolute Lymphocyte Count 1.37 X10^3/uL (0.83-4.51); Absolute Neutrophil Count 3.5 X10^3/uL (2.0-7.7); Basophil# 0.02 X10^3/uL; Basophil% 0.4 % (0-1); Eosinophil# 0.14 X10^3/uL; Eosinophils% 2.6 % (0-5); Hematocrit 23.8 % (37-47); Hemoglobin 7.9 g/dL (12.0-15.0); Lymphocyte # 1.37 X10^3/ul (4.0); Mean Corp Hgb Conc 33.2 g/dL (32-36); Mean Corpuscular Hgb 28.7 pg (27.0-32.0); Mean Corpuscular Volume 86.5 fL (81-99); Mean Platelet Vol. 9.7 fl (6.2-12.0); Monocyte# 0.36 X10^3/uL; Monocyte% 6.6 % (0-10); NRBC Flagged by Analyzer 0 % (0-5); Neutrophil # 3.53 X10^3/uL (2.7-7.7); Neutrophil % 64.3 % (47-70); Platelet Count 194 K/mm3 (150-450); RBC Distribution Width CV 11.7 % (11.6-14.6); RBC Distribution Width SD 36.7 fl (35.1-43.9); Red Blood Count 2.75 M/mm3 (4.2-5.4); White Blood Count 5.5 K/mm3 (4.4-11.0)
[2019-11-11 06:50] LABS: Anion Gap 1 (5-15); BUN 7 mg/dL (7-18); BUN/Creat Ratio 8.2 RATIO (10-20); Calcium,Total 7.7 mg/dL (8.5-10.1); Chloride 110 mmol/L (98-107); Creatinine, Serum 0.86 mg/dL (0.55-1.02); EST Glomerular Filtration Rate 73 mL/min (>60); Est Glom Filt Rate - Afr Amer 88 mL/min (>60); Estimated Creatinine Clearance 64.94 ml/min; Glucose 169 mg/dL (74-106); Magnesium 1.6 mg/dL (1.6-2.6); Potassium 3.7 mmol/L (3.5-5.1); Sodium Level 141 mmol/L (136-145)
[2019-11-11 06:55] VITALS: PULSE 79
[2019-11-11 06:55] LABS: Bedside Glucose 156 mg/dL (70-110)
[2019-11-11] MEDS: Insulin Lispro 100 UNIT/ML INSULN.PEN SC (07:06)
[2019-11-11 08:30] VITALS: BP 104/64; PULSE 78; RESP 18; TEMP 36.7; O2SAT 98
[2019-11-11] MEDS: Aspirin 81 MG TAB.CHEW PO (08:41)
[2019-11-11] MEDS: Pantoprazole Sodium 40 MG Tablet PO (08:41)
[2019-11-11] MEDS: Enoxaparin 30 MG/0.3 ML Syringe SC (08:41)
[2019-11-11] MEDS: traMADol 50 MG Tablet PO (08:41)
[2019-11-11] MEDS: Fludrocortisone Acetate 0.1 MG Tablet PO (08:41)
[2019-11-11 11:01] LABS: Bedside Glucose 136 mg/dL (70-110)
[2019-11-11] MEDS: BENZOCAINE/MENTHOL 1 LOZENGE MUCOUS MEM (12:18)
[2019-11-11 14:10] VITALS: BP 111/71; PULSE 86; RESP 18; TEMP 36.5; O2SAT 94
--- NOTE | 2019-11-11 14:41 | DCINST_ITS ---
- Discharge Diagnoses Current Active Problems: Current Active and Chronic Problems (Last Updated 11/07/19 @ 07:[address] Luigi Villalobos MD) Severe sepsis (Acute) Colitis (Acute) Proctitis (Acute) Dehydration (Acute) Hyperkalemia (Acute) Acute kidney injury (Acute) You will use the following diet at home:: No restrictions, Calorie/Carbohydrate Controlled (specify 1200, 1400, etc) Your food should be the consistency of: Regular Your liquids should be the consistency of: Regular/Thin Discharge Activity: Return to Normal Activity May resume sexual activity in: No Restrictions Call your doctor if you observe: Fever of 101 or Higher Allergies/Adverse Reactions: Allergies metformin Adverse Reaction (Verified 11/06/19 23:45) Diarrhea Medications to take at Discharge Aspirin [Aspirin, Baby] 81 mg PO DAILY@0800 #30 tab.chew 10/17/18 Atorvastatin Calcium [Lipitor] 40 mg PO QHS #30 tab 10/17/18 Clonidine HCl [Catapres] 0.2 mg PO TID 12/17/18 Diltiazem CD [Cardizem CD] 180 mg PO DAILY 12/17/18 Insulin Glargine [Lantus SoloStar Pen] 20 units SUBCUT QHS 12/17/18 Insulin Lispro [Humalog KwikPen] 7 unit SQ TIDCM 12/17/18 Insulin Lispro [Humalog KwikPen] See Protocol SQ PRN PRN 12/17/18 Magnesium Oxide [Mag-Ox 400] 400 mg PO BID 12/17/18 Ondansetron [Zofran Odt] 4 mg PO Q6H PRN 12/17/18 ibuprofen 600 mg tablet 600 mg PO TID PRN tab 02/16/19 midodrine 2.5 mg tablet 2.5 mg PO TID tab 02/16/19 nut.tx.gluc.intol,lac-free,soy 1 ea PO BID ml 02/16/19 pantoprazole 40 mg tablet,delayed release 40 mg PO DAILY 02/16/19 polyethylene glycol 3350 17 gram/dose oral powder 17 g PO DAILY 02/16/19 fludrocortisone 0.1 mg tablet 0.1 mg PO DAILY 02/17/19 potassium chloride 20 mEq tablet,extended release 20 meq PO BID 02/17/19 pregabalin 50 mg capsule 50 mg PO TID 02/17/19 traMADol [Ultram] 50 mg PO Q8H 05/04/19 lisinopril 40 mg tablet 20 mg PO BID tab 09/15/19 Ciprofloxacin HCl 750 mg PO DAILY #2 tab 11/11/19 Metronidazole [Flagyl] 500 mg PO TID #6 tab 11/11/19 The following prescriptions were given: Ciprofloxacin HCl 750 mg PO DAILY #2 tab Transmission Status: Pending to [facility] Metronidazole [Flagyl] 500 mg PO TID #6 tab Transmission Status: Pending to [id number] Primary Care Physician: Dennys Serrano MD [Primary Care Provider] - Please follow up with your Primary Care Physician in: 1-2 weeks Test Results: Test results from this visit will be discussed in further detail at your follow- up appointment, if applicable. Please Follow Up With: Dean Trammell MD When: call for appt regarding GI issues
--- NOTE | 2019-11-11 14:45 | PCM.DC.SUM ---
Discharge Date and Diagnosis - Problem List Patient Problems: Active and Suspected Problems (Last Updated 11/07/19 @ 07:[address] Luigi Villalobos MD) Severe sepsis (Acute) Colitis (Acute) Proctitis (Acute) Dehydration (Acute) Hyperkalemia (Acute) Acute kidney injury (Acute) Date of Admission: 11/07/19 Date of Discharge: 11/11/19 - Primary Discharge Diagnosis Acute Problems: Active Problems (Last Updated 11/07/19 @ 07:[address] Luigi Villalobos MD) Severe sepsis (Acute) Colitis (Acute) Proctitis (Acute) Dehydration (Acute) Hyperkalemia (Acute) Acute kidney injury (Acute) - Secondary Discharge Diagnosis Chronic Problems: Chronic Problems (Last Updated 11/07/19 @ 07:[address] Luigi Villalobos MD) Essential hypertension (Chronic) Migraine without aura (Chronic) Vertigo (Chronic) HLD (hyperlipidemia) (Chronic) Post-concussion syndrome (Chronic) History of orthostatic hypotension (Chronic) Type II diabetes mellitus (Chronic) Hospital Course and Treatment Consultations 11/08/19 09:36 Consult: Onc/Wound/patient safety sitter Routine Comment: left heel ulcer CCM Operations: None Procedures: Central line placement - PICC R UE Summary of Care Provided: Ms Sprague is a 59 year old F with a significant PMH of postconcussion syndrome, orthostatic hypotension, and diabetes mellitus who presented to the ED on 11/07/2019 with nausea, vomiting and diarrhea. Her symptoms started on the same day of presentation and were associated with her symptoms is chills and abdominal pain. Her blood glucose at home was in the 400s. In the ED she was found to be hypotensive, have ALMA and severe hyperkalemia with a level of 7. She was admitted to the ICU. CT of her abdomen and pelvis was c/w colitis as it was thick walled and edematous. Her stool lactoferrin was also positive. C-diff and enteric panel was negative. She was treated Cipro and Flagyl for 5 days here and completed a 7 day course upon d/c. She was tolerating a reg carb control diet and her nausea and diarrhea had resolved. ALMA resolved with hydration only and her K normalized. She was restarted on her home meds at d/c and instructed to f/u with her PCP. She did, while she was in the ICU, have a short run of NSVT which resolved and never reoccurred. It is suspected that this was due to her electrolyte abnormalites and illness. She was given contact information to f/u with GI after d/c and is f/u with her PCP in 1-2 weeks. Patient Problems: Active and Suspected Problems (Last Updated 11/07/19 @ 07:[address] Luigi Villalobos MD) Severe sepsis (Acute) Colitis (Acute) Proctitis (Acute) Dehydration (Acute) Hyperkalemia (Acute) Acute kidney injury (Acute) Subjective: Feeling well today. No overnight issues. Tolerating a regular diet and no nausea/emesis or diarrhea. States that she feels much better and almost back to baseline. Anxious to go home - Physical Exam Vitals/I&O's: Vital Signs Temp Pulse Resp BP Pulse Ox 97.7 F L 86 18 111/71 94 11/11/19 14:10 11/11/19 14:10 11/11/19 14:10 11/11/19 14:10 11/11/19 14:10 Oxygen Delivery Method Room Air Weight: 72.3 kg Body Mass Index (BMI) 24.9 Finger Stick Blood Glucose 412 Orthostatic Vital Signs Start: 11/08/19 23:22 Freq: q24h Status: Active Protocol: Activity Type Activity Date Activity User E-Sign Co-Sign Detail Recorded Client Recorded Date Recorded By Document 11/11/19 03:25 MAB [id number] 11/11/19 03:49 MAB 11/11/19 03:25 Orthostatic Vitals Standing -Blood Pressure (90/60-120/80) 106/64 -Extremity Use Left Arm -Pulse Rate (60-100) 93 Sitting -Blood Pressure (90/60-120/80) 146/69 H -Extremity Use Left Arm -Pulse Rate (60-100) 90 Lying -Blood Pressure (90/60-120/80) 130/82 H -Extremity Use Left Arm -Pulse Rate (60-100) 83 Intake and Output for Last 24 Hours 11/09/19 11/10/19 11/11/19 23:59 23:59 23:59 Intake Total 1606.75 / 1606.75 1822 / 1822 802 / 802 Output Total 1925 / 1925 1600 / 1600 500 / 500 Balance -318.25 / -318.25 222 / 222 302 / 302 General: Alert, Oriented x3, Cooperative, No apparent distress, Well developed, Well nourished, - - WF sitting up in a chair, watching TV and eating lunch HEENT: Atraumatic, PERRLA, EOMI, Normocephalic, EAC Clear Oral: Moist Mucosa, No Gingival or Mucosal Lesions/ Ulcerations, - - edentulous Neck: Supple, No JVD, Trachea Midline, Thyroid Normal Size and Texture Lungs: Clear to auscultation, Normal air movement, No rhonchi, No wheeze, No rales Cardiovascular: Regular rate, Regular Rhythm, Normal S1, Normal S2, No murmurs, No Ectopic Activity, No rub noted, No Gallop Abdomen: Bowel Sounds Present, Soft, Non Tender, Non-Distended, No hernias noted Extremities: No clubbing, No cyanosis, No edema, Capillary Refill Less than 3 Seconds, Peripheral Pulses Normal Skin: No rashes, Ulcer/ Wound - heel Musculoskeletal: No Tenderness to Palpation of Joints or Extremities, No Muscle Wasting Lymphatic: No Cervical, Supraclavicular, or Inguinal Adenopathy Neurological: Cranial nerves II-XII grossly intact, Neuro grossly intact, Muscle tone normal, Sensory exam intact to light touch and pain, Coordination normal Psych/Mental Status: Normal Affect, Appropriate, Alert and oriented to time, place, person, mood and affect Microbiology Past 72 Hours 11/07/19 01:30 Urine Catheter - Catheter Urine Culture - Final Culture exhibits no growth. 11/07/19 01:00 Blood Culture (Wb) - Left Hand Blood Culture - Preliminary No growth in 48 hours. 11/07/19 00:45 Blood Culture (Wb) - Anticubital Left Blood Culture - Preliminary No growth in 48 hours. Laboratory Results 11/10/19 16:40: POC Glucose 131 H 11/10/19 22:27: POC Glucose 286 H 11/11/19 06:06: WBC 5.5, RBC 2.75 L, Hgb 7.9 L, Hct 23.8 L, MCV 86.5, MCH 28.7, MCHC 33.2, RDW Std Deviation 36.7, RDW Coeff of Chris 11.7, Plt Count 194, MPV 9.7, Immature Gran % (Auto) 1.100 H, Neut % (Auto) 64.3, Lymph % (Auto) 25.0, [place] % (Auto) 6.6, Eos % (Auto) 2.6, Baso % (Auto) 0.4, Absolute Neuts (auto) 3.5, Absolute Lymphs (auto) 1.37, Nucleated RBC % 0 11/11/19 06:06: Sodium 141, Potassium 3.7, Chloride 110 H, Carbon Dioxide 30.0, Anion Gap 1 L, BUN 7, Creatinine 0.86, Estim Creat Clear Calc 64.94, Est GFR (MDRD) Af Amer 88, Est GFR (MDRD) Non-Af 73, BUN/Creatinine Ratio 8.2 L, Glucose 169 H, Calcium 7.7 L, Magnesium 1.6 11/11/19 06:51: POC Glucose 156 H 11/11/19 10:43: POC Glucose 136 H Current Medications Acetaminophen (Tylenol) 650 mg PO Q6H PRN PRN PRN Reason: Pain Score 1-10/Temp > 100.7 F Albuterol Sulfate (Ventolin Aerosols) 2.5 mg INHALATION Q2H PRN PRN PRN Reason: SOB/Wheezing Aspirin (Aspirin, Baby) 81 mg PO DAILY@0800 [facility] Last Admin: 11/11/19 08:41 Dose: 81 mg Documented by: Atorvastatin Calcium (Lipitor) 40 mg PO QHS [facility] Last Admin: 11/10/19 22:19 Dose: 40 mg Documented by: Clonidine (Catapres) 0.2 mg PO TID [facility] Last Admin: 11/11/19 14:11 Dose: 0.2 mg Documented by: Dextrose (D50w Syringe) 0 gm IV X1 PRN; Protocol PRN Reason: Hypoglycemia Diltiazem HCl (Cardizem Cd) 180 mg PO DAILY [facility] Last Admin: 11/11/19 08:42 Dose: Not Given Documented by: Enoxaparin Sodium (Lovenox) 30 mg SC DAILY [facility] Last Admin: 11/11/19 08:41 Dose: 30 mg Documented by: Fludrocortisone Acetate (Florinef) 0.1 mg PO DAILYCM [facility] Last Admin: 11/11/19 08:41 Dose: 0.1 mg Documented by: Glucagon () 1 mg IM .X1 PRN PRN Reason: Hypoglycemia Ciprofloxacin (Cipro) 400 mg in 200 mls @ 200 mls/hr IV Q24@2200 [facility] Last Infusion: 11/10/19 23:25 Dose: Infused Documented by: Metronidazole (Flagyl) 500 mg in 100 mls @ 100 mls/hr IV Q8 [facility] Last Admin: 11/11/19 14:11 Dose: 100 mls/hr Documented by: Insulin Glargine (Lantus ([facility])) 30 units SC QHS [facility] Last Admin: 11/10/19 22:30 Dose: 30 units Documented by: Insulin Human Lispro (Humalog Kwikpen ([facility])) 0 unit SC ACHS [facility]; Protocol Last Admin: 11/11/19 10:51 Dose: Not Given Documented by: Lisinopril (Zestril) 20 mg PO BID [facility] Last Admin: 11/11/19 08:42 Dose: Not Given Documented by: Nutritional Formula (Brian - [place] Flavor) 1 packet PO BIDCM [facility] Last Admin: 11/11/19 08:41 Dose: 1 packet Documented by: Nutritional Formula (Lactose Free) (Ensure Clear) 120 ml PO 4X/DAY [facility] Last Admin: 11/11/19 14:11 Dose: Not Given Documented by: Ondansetron HCl (Zofran) 4 mg IV Q8H PRN PRN PRN Reason: NAUSEA/VOMITING Last Admin: 11/10/19 08:00 Dose: 4 mg Documented by: Pantoprazole Sodium (Protonix) 40 mg PO DAILY [facility] Last Admin: 11/11/19 08:41 Dose: 40 mg Documented by: Pregabalin (Lyrica) 50 mg PO TID [facility] Last Admin: 11/11/19 14:11 Dose: 50 mg Documented by: Sodium Chloride () 10 - 40 ml IV UD PRN PRN Reason: SALINE FLUSH Last Admin: 11/11/19 14:11 Dose: 10 ml Documented by: Throat Lozenges (Cepacol Sore Throat Lozenge) 1 lozenge MUCOUS MEM Q2H PRN PRN PRN Reason: sore throat Last Admin: 11/11/19 12:18 Dose: 1 lozenge Documented by: Tramadol HCl (Ultram) 50 mg PO BID [facility] Last Admin: 11/11/19 08:41 Dose: 50 mg Documented by: Discharge Activity: Return to Normal Activity May resume sexual activity in: No Restrictions Call your doctor if you observe: Fever of 101 or Higher Home Medications: Medications to take at Discharge Aspirin [Aspirin, Baby] 81 mg PO DAILY@0800 #30 tab.chew 10/17/18 Atorvastatin Calcium [Lipitor] 40 mg PO QHS #30 tab 10/17/18 Clonidine HCl [Catapres] 0.2 mg PO TID 12/17/18 Diltiazem CD [Cardizem CD] 180 mg PO DAILY 12/17/18 Insulin Glargine [Lantus SoloStar Pen] 20 units SUBCUT QHS 12/17/18 Insulin Lispro [Humalog KwikPen] 7 unit SQ TIDCM 12/17/18 Insulin Lispro [Humalog KwikPen] See Protocol SQ PRN PRN 12/17/18 Magnesium Oxide [Mag-Ox 400] 400 mg PO BID 12/17/18 Ondansetron [Zofran Odt] 4 mg PO Q6H PRN 12/17/18 ibuprofen 600 mg tablet 600 mg PO TID PRN tab 02/16/19 midodrine 2.5 mg tablet 2.5 mg PO TID tab 02/16/19 nut.tx.gluc.intol,lac-free,soy 1 ea PO BID ml 02/16/19 pantoprazole 40 mg tablet,delayed release 40 mg PO DAILY 02/16/19 polyethylene glycol 3350 17 gram/dose oral powder 17 g PO DAILY 02/16/19 fludrocortisone 0.1 mg tablet 0.1 mg PO DAILY 02/17/19 potassium chloride 20 mEq tablet,extended release 20 meq PO BID 02/17/19 pregabalin 50 mg capsule 50 mg PO TID 02/17/19 traMADol [Ultram] 50 mg PO Q8H 05/04/19 lisinopril 40 mg tablet 20 mg PO BID tab 09/15/19 Ciprofloxacin HCl 750 mg PO DAILY #2 tab 11/11/19 Metronidazole [Flagyl] 500 mg PO TID #6 tab 11/11/19 Following Prescriptions Were Given to Patient: Ciprofloxacin HCl 750 mg PO DAILY #2 tab Transmission Status: Pending to [id number] Metronidazole [Flagyl] 500 mg PO TID #6 tab Transmission Status: Pending to [id number] Primary Care Physician: Zach,Dennys, MD [Primary Care Provider] - Please follow up with your Primary Care Physician in: 1-2 weeks Please Follow Up With: Dean Trammell MD When: call for appt regarding GI issues Medical Necessity - Tobacco Use Smoking Status: Never smoker Meaningful Use Info Meaningful Use Diagnoses (Choose all that apply): None applicable Inpatient E&M: 34230 [facility]
[2019-11-11 15:05] VITALS: PULSE 79
--- NOTE | 2019-11-11 15:07 | CASEMGMT ---
RN SHIRA NOTE: To room to talk with pt. Introduced self and role of RN SHIRA. Pt denies having any concerns or needs w/discharging home. Kierra BSN PRIYA CM
--- NOTE | 2019-11-11 15:15 | PHA.DC.MC ---
Pharmacy Service has performed discharge medication reconciliation and counseling for this patient. 1. CIPROFLOXACIN 750MG PO DAILY X 2 DAYS 2. METRONIDAZOLE 500MG PO TID X 2 DAYS The patient's discharge medication list was reviewed for discrepancies and discrepancies were resolved. Home Medications Aspirin [Aspirin, Baby] 81 mg PO DAILY@0800 #30 tab.chew 10/17/18 Atorvastatin Calcium [Lipitor] 40 mg PO QHS #30 tab 10/17/18 Clonidine HCl [Catapres] 0.2 mg PO TID 12/17/18 Diltiazem CD [Cardizem CD] 180 mg PO DAILY 12/17/18 Insulin Glargine [Lantus SoloStar Pen] 20 units SUBCUT QHS 12/17/18 Insulin Lispro [Humalog KwikPen] 7 unit SQ TIDCM 12/17/18 Insulin Lispro [Humalog KwikPen] See Protocol SQ PRN PRN 12/17/18 Magnesium Oxide [Mag-Ox 400] 400 mg PO BID 12/17/18 Ondansetron [Zofran Odt] 4 mg PO Q6H PRN 12/17/18 ibuprofen 600 mg tablet 600 mg PO TID PRN tab 02/16/19 midodrine 2.5 mg tablet 2.5 mg PO TID tab 02/16/19 nut.tx.gluc.intol,lac-free,soy 1 ea PO BID ml 02/16/19 pantoprazole 40 mg tablet,delayed release 40 mg PO DAILY 02/16/19 polyethylene glycol 3350 17 gram/dose oral powder 17 g PO DAILY 02/16/19 fludrocortisone 0.1 mg tablet 0.1 mg PO DAILY 02/17/19 potassium chloride 20 mEq tablet,extended release 20 meq PO BID 02/17/19 pregabalin 50 mg capsule 50 mg PO TID 02/17/19 traMADol [Ultram] 50 mg PO Q8H 05/04/19 lisinopril 40 mg tablet 20 mg PO BID tab 09/15/19 Ciprofloxacin HCl 750 mg PO DAILY #2 tab 11/11/19 Metronidazole [Flagyl] 500 mg PO TID #6 tab 11/11/19 The patient was counseled on the following discharge medications and changes in medications for homegoing were reviewed. The Reason for Use, instructions for use, and potential side effects were reviewed for all new medications. The patient's questions regarding all of their medications were answered. The patient was able to verbally demonstrate an understanding of their discharge medications. Patient counseled by pharmacy benefit manager, Jannette.
--- NOTE | 2019-11-11 15:43 | NURSING ---
PICC line removed at this time. Pressure held for 5 minutes, no bleeding, tip intact, petroleum jelly applied to sterile gauze, covered with tegaderm. pt left supine in bed, instructed to lay flat for 30 minutes, pt tolerated well.
--- NOTE | 2019-11-12 14:28 | CASEMGMT ---
PRIYA SILVA Discharge Follow-Up Phone Call. Isabel: Fabrice Strata: 3 Discharge Date: 11/11/19 Adm Dx: Severe Sepsis Call to pt to inquire about how she has been doing since being discharged from the hospital. She states she is doing much much better. You guys did such a good job taking care of me. She denies having any questions about the discharge instructions, stating, I was just reading over them again about 5 min before you called. She states she was able to olive picker the new prescriptions and denies having any questions about thosee or her other medications. She is aware of the appt scheduled w/Dr Serrano on 12/01 and states she plans on talking with him prior to scheduling an appt with Dr Trammell. She denies any needs/questions/concerns. PRIYA SILVA thanked pt for choosing [facility]. Kierra PAGAN RN, CM
--- NOTE | 2019-11-17 08:39 | CASEMGMT ---
Social Work Discharge follow up Phone call: Discharge Date: 11/11/19 Call Date: 11/17/19 Callt Time: 0840 Reason for Follow up: Advanced Care Planning Summary of Call: Pt received information on Health Care POA while in hospital but did not feel up to completing at that time. SW spoke with pt and offered to set appointment to assist with ACP. Pt stating she has not looked over information since return home but does have rac card and will call for appointment when she is ready. Interventions: SW informed pt that SW is available for outpatient appointment for ACP. Pt is aware and has phone number. No further needs requested or indicated. SHARON Mueller
== END 2019-11-11 16:42 | disposition home or self-care (01) | DRG 720 ==
LOC: ED 11-07 03:55 → ICU 11-07 04:40 → PCU 11-09 11:07
PROVIDERS: Hospitalist; Internal Medicine Critical Care Medicine; Admitting Provider Hospitalist; Emergency Provider Emergency Medicine; PCP Family Medicine; Referring Provider Hospitalist; Visit Provider Internal Medicine
DX: A41.9 Sepsis, unspecified organism (principal); E11.65 Type 2 diabetes mellitus with hyperglycemia; N17.9 Acute kidney failure, unspecified; I47.2 Ventricular tachycardia; E87.0 Hyperosmolality and hypernatremia; R65.20 Severe sepsis without septic shock; I10 Essential (primary) hypertension; I95.1 Orthostatic hypotension; E87.5 Hyperkalemia; F07.81 Postconcussional syndrome; E78.5 Hyperlipidemia, unspecified; G43.009 Migraine without aura, not intractable, without status migrainosus; E86.0 Dehydration; D64.9 Anemia, unspecified; K62.89 Other specified diseases of anus and rectum; K52.9 Noninfective gastroenteritis and colitis, unspecified; E11.43 Type 2 diabetes mellitus with diabetic autonomic (poly)neuropathy; Z79.4 Long term (current) use of insulin; R33.9 Retention of urine, unspecified; E46 Unspecified protein-calorie malnutrition; G89.4 Chronic pain syndrome; Z79.52 Long term (current) use of systemic steroids; Z80.7 Family history of other malignant neoplasms of lymphoid, hematopoietic and related tissues; Z82.0 Family history of epilepsy and other diseases of the nervous system; Z82.49 Family history of ischemic heart disease and other diseases of the circulatory system; Z82.5 Family history of asthma and other chronic lower respiratory diseases; Z83.3 Family history of diabetes mellitus; Z90.49 Acquired absence of other specified parts of digestive tract; M79.643 Pain in unspecified hand; E87.8 Other disorders of electrolyte and fluid balance, not elsewhere classified
CPT/HCPCS: 36415; 36569; 71045; 74176; 80048; 80053; 81001; 82533; 82962; 83605; 83630; 83735; 85025; 87040; 87086; 87493; 87506; 93005; 93306; 94640; 97802; 99285; J7030; J7050; Q9957; A4216; C8929; J0610; J0744; J2405

== ENCOUNTER 2019-12-03 00:50 | Emergency (ER) | payer MEDICAID, SELFPAY ==
[2019-11-07 05:02] VITALS: BMI 24.9
[2019-12-03 00:51] VITALS: BP 128/108; PULSE 82; RESP 16; TEMP 36.9; O2SAT 96; BMI 26.7
[2019-12-03 00:54] VITALS: BP 128/108; PULSE 81; RESP 16; TEMP 36.9; O2SAT 96
--- NOTE | 2019-12-03 01:06 | EKG12_ITS ---
Test Reason : DYSRHYTHMIA Blood Pressure : / mmHG Vent. Rate : 079 BPM Atrial Rate : 079 BPM P-R Int : 194 ms QRS Dur : 090 ms QT Int : 384 ms P-R-T Axes : 078 052 068 degrees QTc Int : 440 ms Normal sinus rhythm Normal ECG Confirmed by DAVID AMEZCUA, TED ([id number]), copy editor RAFI DOMINGO ([id number]) on 12/08/2019 8:01:16 AM Referred By: YANELY Confirmed By:JUSTUS HERNANDEZ MD
[2019-12-03 01:52] LABS: Absolute Lymphocyte Count 1.11 X10^3/uL (0.83-4.51); Absolute Neutrophil Count 2.7 X10^3/uL (2.0-7.7); Basophil# 0.02 X10^3/uL; Basophil% 0.5 % (0-1); Eosinophil# 0.09 X10^3/uL; Eosinophils% 2.1 % (0-5); Hematocrit 29.6 % (37-47); Lymphocyte # 1.11 X10^3/ul (4.0); Lymphocyte % 26.5 % (19-41); Mean Corp Hgb Conc 30.4 g/dL (32-36); Mean Corpuscular Hgb 27.4 pg (27.0-32.0); Mean Corpuscular Volume 90.2 fL (81-99); Mean Platelet Vol. 10.6 fl (6.2-12.0); Monocyte# 0.26 X10^3/uL; Monocyte% 6.2 % (0-10); NRBC Flagged by Analyzer 0 % (0-5); Neutrophil # 2.69 X10^3/uL (2.7-7.7); Neutrophil % 64.2 % (47-70); Platelet Count 299 K/mm3 (150-450); RBC Distribution Width CV 12.8 % (11.6-14.6); RBC Distribution Width SD 42.3 fl (35.1-43.9); Red Blood Count 3.28 M/mm3 (4.2-5.4); White Blood Count 4.2 K/mm3 (4.4-11.0)
--- NOTE | 2019-12-03 02:14 | ED.DCSUM_ITS ---
History of Present Illness Chief Complaint: Abn Labs Informant: Patient, PCP Narrative: Patient is a 59-year-old female presenting at the request of her primary care doctor for abnormal potassium level. Patient outpatient blood work drawn today with potassium was found to be 6.3. Patient was instructed to come to the emergency room further evaluation. Apparently her creatinine was normal at 1. Patient was hospitalized a couple weeks ago for sepsis but states she is been feeling much better. She denies any other complaints. She states she is been eating and drinking normally. She is not aware of a history of hyperkalemia but thinks maybe she had low potassium in the past. Patient does not they have difficulty obtaining her blood today. Past Medical History - Allergies and Home Meds Allergies/Adverse Reactions: Allergies metformin Adverse Reaction (Verified 11/06/19 23:45) Diarrhea Primary Care Physician: Dennys Serrano MD [Primary Care Provider] - Past Medical History: - - History of colitis, hypertension, migraines, hyperlipidemia, type 2 diabetes mellitus Surgical History: cholecystectomy, - - TMJ surgery Lives: Spouse/ Significant Other Smoking Status: Never smoker - Family History Maternal Family History: Family History (Last Reviewed 11/07/19 @ 05:[address] Rikki Jeong MD) Mother Hypertension Father Cancer Emphysema of lung Grandmother Diabetes Family History: Reports: - - Recently passed, August 2017 secondary to complications from Alzheimer's disease Paternal Family History: Family History (Last Reviewed 11/07/19 @ 05:[address] Rikki Jeong MD) Mother Hypertension Father Cancer Emphysema of lung Grandmother Diabetes Family History: Reports: - - Emphysema, lymphoma Review of Systems General: Denies: Chills, Fever, Sweats Eyes: Denies: Visual changes - bilaterally, Diplopia ENT: Denies: Rhinorrhea, Sore throat Cardiovascular: Denies: Chest pain, Palpitations Respiratory: Denies: Dyspnea, Cough, Dyspnea on exertion Gastrointestinal: Denies: Abdominal pain, Nausea, Vomiting, Diarrhea, Melena, Hematochezia Genitourinary: Denies: Dysuria, Hematuria, Frequency Musculoskeletal: Denies: Back pain, Extremity Pain Skin: Denies: Rash, Wounds Neurological: Denies: Headache, Weakness, Numbness Physical Exam Vital Signs/Narrative: Vital Signs Temp Pulse Resp BP Pulse Ox 12/03/19 00:54 98.5 F 81 16 128/108 H 96 09/03/20 00:51 98.5 F 82 16 128/108 H 96 Inital Vital Signs reviewed: Yes General: Well nourished, Well developed, No Acute Distress Head: Normocephalic, Atraumatic Eyes: Perrl, EOMI ENT: Moist mucous membranes, No rhinorrhea Neck: Supple, Nontender Cardiovascular: Regular rate, Regular rhythm, No murmurs Respiratory: No distress, CTA bilaterally, Chest nontender Abdomen: Soft, Nontender, Nondistended, Normal bowel sounds Back: Nontender, Normal Inspection Extremities: Nontender, No edema Skin: Normal color, No rash Neurological: Alert, Oriented x3, Cranial nerves II-XII grossly intact, Normal Strength, Normal Sensation Psychological: Normal affect, Normal Mood Diagnostic/Tx/Re-eval Laboratory Data 12/03/19 12/03/19 12/03/19 01:50 01:50 03:22 WBC 4.2 L RBC 3.28 L Hgb 9.0 L Hct 29.6 L MCV 90.2 MCH 27.4 MCHC 30.4 L RDW Std Deviation 42.3 RDW Coeff of Chris 12.8 Plt Count 299 MPV 10.6 Immature Gran % (Auto) 0.500 Neut % (Auto) 64.2 Lymph % (Auto) 26.5 [place] % (Auto) 6.2 Eos % (Auto) 2.1 Baso % (Auto) 0.5 Absolute Neuts (auto) 2.7 Absolute Lymphs (auto) 1.11 Nucleated RBC % 0 Sodium Cancelled 137 Potassium Cancelled 5.3 H Chloride Cancelled 106 Carbon Dioxide Cancelled 30.0 Anion Gap Cancelled 1 L BUN Cancelled 16 Creatinine Cancelled 1.05 H Estim Creat Clear Calc Cancelled 53.19 Est GFR (MDRD) Af Amer Cancelled 69 Est GFR (MDRD) Non-Af Cancelled 57 L BUN/Creatinine Ratio Cancelled 15.2 Glucose Cancelled 368 H Calcium Cancelled 8.6 - Rhythm Strip Rhythm Strip: Sinus Rhythm Rate: 79 Ectopy: None - EKG Initial EKG Interpretation: Sinus Rhythm, - - Sinus rhythm at a rate of [address] segments Normal axis No peak T waves are present - Medical Decision Making Is evaluated for elevated potassium level and outpatient labs. Potassium level was repeated and EKG is obtained. Patient does not have any peaked T waves or other findings on EKG consistent with hyperkalemia. Potassium level is only minimally elevated at 5.3. I suspect the prior sample was hemolyzed and that caused artificially elevated potassium. Patient does not have any other significant abnormalities on her blood work. Her PCP is contacted who is comfortable with her being discharged home. Patient is counseled on signs and symptoms requiring return to the emergency room. Patient verbalizes agreement and understand this plan. Patient discharged home in stable and improved condition. ED Disposition - Plan for ED Patient: Disposition: Home or Assisted Living Diagnosis: Abnormal blood chemistry test Referrals: Dennys Serrano MD [Primary Care Provider] - Additional Instructions: Your outpatient blood work showed an elevated potassium however it is normal on repeat draw. You are safe to go home. Please follow-up with your primary care doctor in a week for recheck of your labs.
[2019-12-03 03:06] VITALS: BP 156/86; PULSE 78; RESP 16; O2SAT 96
[2019-12-03 03:41] LABS: Anion Gap 1 (5-15); BUN 16 mg/dL (7-18); BUN/Creat Ratio 15.2 RATIO (10-20); Calcium,Total 8.6 mg/dL (8.5-10.1); Chloride 106 mmol/L (98-107); Creatinine, Serum 1.05 mg/dL (0.55-1.02); EST Glomerular Filtration Rate 57 mL/min (>60); Est Glom Filt Rate - Afr Amer 69 mL/min (>60); Estimated Creatinine Clearance 53.19 ml/min; Glucose 368 mg/dL (74-106); Potassium 5.3 mmol/L (3.5-5.1); Sodium Level 137 mmol/L (136-145)
[2019-12-03 04:20] VITALS: BP 143/88; PULSE 78; RESP 16; O2SAT 97
== END 2019-12-03 04:21 | disposition home or self-care (01) ==
PROVIDERS: Emergency Provider Emergency Medicine; PCP Family Medicine
DX: R79.9 Abnormal finding of blood chemistry, unspecified (principal); E11.9 Type 2 diabetes mellitus without complications; E78.5 Hyperlipidemia, unspecified; I10 Essential (primary) hypertension; Z82.49 Family history of ischemic heart disease and other diseases of the circulatory system; Z90.49 Acquired absence of other specified parts of digestive tract
CPT/HCPCS: 36415; 80048; 85025; 93005; 99285; A4216

== ENCOUNTER 2019-12-15 16:26 | Inpatient (IN) | payer MEDICAID, SELFPAY ==
[2019-12-15 16:27] VITALS: BP 158/75; PULSE 76; RESP 18; TEMP 36.6; O2SAT 99; BMI 26.6
--- NOTE | 2019-12-15 16:41 | ED.VIS.GEN ---
History of Present Illness Chief Complaint: Wound Check Informant: Patient Onset: Days Context: Gradual Onset Timing: Continuous Current Severity: Moderate Maximum Severity: Moderate Narrative: Patient is a 59-year-old female who is a brittle diabetic that presents to the emergency department with heel wound. Patient has been following with podiatry. She was in the office today. They were doing local debridement. They were able to debride the wound down to visible bone. Due to concern for osteomyelitis, the patient was sent in for further evaluation. I had actually discussed this with Dr. Brown, the intravenous therapy nurse that saw the patient in the office. She denies any significant pain. She denies any fevers or chills. She has no history of osteomyelitis. She was hospitalized over a month ago for severe sepsis. Prior similar symptoms: Yes Recent Illness/Hospitalization: Yes Past Medical History - Allergies and Home Meds Allergies/Adverse Reactions: Allergies metformin Adverse Reaction (Verified 12/15/19 16:29) Diarrhea Prior records reviewed: Yes Past Medical History: - - Diabetes, orthostatic hypotension Surgical History: cholecystectomy, - - TMJ surgery Smoking Status: Never smoker - Family History Maternal Family History: Family History (Last Reviewed 12/15/19 @ 18:[address] Tri Terry DO) Mother Hypertension Father Cancer Emphysema of lung Grandmother Diabetes Family History: Reports: - - Recently passed, August 2017 secondary to complications from Alzheimer's disease Paternal Family History: Family History (Last Reviewed 12/15/19 @ 18:[address] Tri Terry DO) Mother Hypertension Father Cancer Emphysema of lung Grandmother Diabetes Family History: Reports: - - Emphysema, lymphoma Review of Systems General: Denies: Chills, Fever, Sweats Eyes: Denies: Visual changes - bilaterally, Diplopia ENT: Denies: Rhinorrhea, Sore throat Cardiovascular: Denies: Chest pain, Palpitations Respiratory: Denies: Dyspnea, Cough, Dyspnea on exertion Gastrointestinal: Denies: Abdominal pain, Nausea, Vomiting, Diarrhea, Melena, Hematochezia Genitourinary: Denies: Dysuria, Hematuria, Frequency Musculoskeletal: Denies: Back pain, Extremity Pain Skin: Reports: Wounds. Denies: Rash Neurological: Denies: Headache, Weakness, Numbness Physical Exam Vital Signs/Narrative: Vital Signs Temp Pulse Resp BP Pulse Ox 12/15/19 16:27 97.9 F 76 18 158/75 H 99 Inital Vital Signs reviewed: Yes General: Well nourished, Well developed, No Acute Distress Head: Normocephalic, Atraumatic Eyes: Perrl, EOMI ENT: Moist mucous membranes, No rhinorrhea Neck: Supple, Nontender Cardiovascular: Regular rate, Regular rhythm, No murmurs Respiratory: No distress, CTA bilaterally, Chest nontender Abdomen: Soft, Nontender, Nondistended, Normal bowel sounds Back: Nontender, Normal Inspection Extremities: Tenderness - There is heel wound on the left. I did not probe, but there is circumferential tissue loss. Pulses are normal. Skin: Normal color, No rash Neurological: Alert, Oriented x3, Cranial nerves II-XII grossly intact, Normal Strength, Normal Sensation Psychological: Normal affect, Normal Mood Diagnostic/Tx/Re-eval Clinical Impression(s) from Imaging Studies Foot X-Ray 12/15/19 17:37 IMPRESSION: Soft tissue ulceration of the plantar surface of the heel. No definitive evidence for acute osteomyelitis however there is focal subchondral lucency and early infection cannot be excluded. Three-phase bone scan or MRI would be helpful for further assessment Electronically Signed: Manjit Saleem MD at 18:17 EDT , Service support , Abnormal Lab Results 12/15/19 12/15/19 12/15/19 17:13 17:13 17:13 WBC 8.1 RBC 3.37 L Hgb 9.4 L Hct 29.4 L MCV 87.2 MCH 27.9 MCHC 32.0 RDW Std Deviation 39.7 RDW Coeff of Chris 12.3 Plt Count 262 MPV 10.1 Immature Gran % (Auto) 0.400 Neut % (Auto) 74.6 H Lymph % (Auto) 18.0 L Gordon % (Auto) 4.1 Eos % (Auto) 2.7 Baso % (Auto) 0.2 Absolute Neuts (auto) 6.0 Absolute Lymphs (auto) 1.45 Nucleated RBC % 0 ESR 81 H Sodium 135 L Potassium 5.8 H Chloride 103 Carbon Dioxide 30.0 Anion Gap 2 L BUN 17 Creatinine 1.10 H Estim Creat Clear Calc 50.77 Est GFR (MDRD) Af Amer 66 Est GFR (MDRD) Non-Af 54 L BUN/Creatinine Ratio 15.5 Glucose 416 H Lactic Acid 1.3 Calcium 9.1 Total Bilirubin 0.30 AST 11 L ALT 12 L Alkaline Phosphatase 216 H C-React Prot Ext Range 17.90 H Total Protein 7.5 Albumin 2.8 L Globulin 4.7 H Albumin/Globulin Ratio 0.6 L - Medical Decision Making Patient presents with heel ulceration from podiatry office visit was probed down to bone. There was concern for osteomyelitis. I did obtain an anaerobic culture. Labs and blood cultures were obtained. X-ray shows questionable cortical lucency. The patient was covered with broad-spectrum antibiotics. Given the bone exposure, she is going to need further podiatry evaluation, continued IV antibiotics, and likely MRI to rule out osteomyelitis. The patient was discussed with the hospitalist and will be admitted. Impression 1. Left heel ulceration with osteomyelitis ED Disposition - Plan for ED Patient:
[2019-12-15 17:25] VITALS: BP 143/75; PULSE 79; RESP 15; TEMP 36.6; O2SAT 98
[2019-12-15 17:28] LABS: Absolute Lymphocyte Count 1.45 X10^3/uL (0.83-4.51); Basophil# 0.02 X10^3/uL; Basophil% 0.2 % (0-1); Eosinophil# 0.22 X10^3/uL; Eosinophils% 2.7 % (0-5); Hematocrit 29.4 % (37-47); Hemoglobin 9.4 g/dL (12.0-15.0); Lymphocyte # 1.45 X10^3/ul (4.0); Mean Corpuscular Hgb 27.9 pg (27.0-32.0); Mean Corpuscular Volume 87.2 fL (81-99); Mean Platelet Vol. 10.1 fl (6.2-12.0); Monocyte# 0.33 X10^3/uL; Monocyte% 4.1 % (0-10); NRBC Flagged by Analyzer 0 % (0-5); Neutrophil % 74.6 % (47-70); Platelet Count 262 K/mm3 (150-450); RBC Distribution Width CV 12.3 % (11.6-14.6); RBC Distribution Width SD 39.7 fl (35.1-43.9); Red Blood Count 3.37 M/mm3 (4.2-5.4); White Blood Count 8.1 K/mm3 (4.4-11.0)
--- NOTE | 2019-12-15 17:37 | RAD_ITS ---
STUDY: X-RAY - LEFT FOOT CLINICAL: Female, 59 years old. LEFT FOOT NON-HEALING WOUND. ONE WOUND ON DORSAL ASPECT AND ONE WOUND ON HE PATIENT''S HEEL. TECHNIQUE: 3 view(s) of the foot. COMPARISON: None. FINDINGS: Normal talus,, and tarsal bones. Prominent plantar calcaneal spur. There is focal subchondral lucency without well-defined cortical destruction however would be difficult to definitively exclude early changes of osteomyelitis Normal visualized subtalar, talonavicular, calcaneocuboid, tarsal and tarsometatarsal articulations. Normal metatarsi. Normal metatarsophalangeal joint of the great toe. Normal tibial and fibular sesamoid bones. Normal interphalangeal joint of the great toe. Normal phalanges of the great toe. Normal second through fifth metatarsophalangeal joints. Normal interphalangeal joints and phalanges of the lesser toes. Ulceration of soft tissues of the plantar surface of the heel. RAD/Foot min 3 Views IMPRESSION: Soft tissue ulceration of the plantar surface of the heel. No definitive evidence for acute osteomyelitis however there is focal subchondral lucency and early infection cannot be excluded. Three-phase bone scan or MRI would be helpful for further assessment Electronically Signed: Manjit Saleem MD at 18:17 EDT , Service support ,
[2019-12-15 17:55] LABS: Lactic Acid 1.3 mmol/L (0.4-1.9)
[2019-12-15 17:58] LABS: Erythrocyte Sedimentation Rate 81 mm/hr (0-30)
[2019-12-15 18:17] LABS: ALB/GLOB Ratio 0.6 RATIO (0.9-2.4); AST(SGOT) 11 U/L (15-37); Alanine Aminotransfer ALT/SGPT 12 U/L (13-56); Albumin, Serum 2.8 g/dL (3.2-5.0); Alkaline Phosphatase 216 U/L (45-117); Anion Gap 2 (5-15); BUN 17 mg/dL (7-18); BUN/Creat Ratio 15.5 RATIO (10-20); Calcium,Total 9.1 mg/dL (8.5-10.1); Chloride 103 mmol/L (98-107); EST Glomerular Filtration Rate 54 mL/min (>60); Est Glom Filt Rate - Afr Amer 66 mL/min (>60); Estimated Creatinine Clearance 50.77 ml/min; Globulin 4.7 g/dL (2.2-4.2); Glucose 416 mg/dL (74-106); Potassium 5.8 mmol/L (3.5-5.1); Protein, Total 7.5 g/dL (6.4-8.2); Sodium Level 135 mmol/L (136-145)
--- NOTE | 2019-12-15 18:22 | PCM.HP.STD ---
Problem List (1) Severe sepsis Status: Inactive (2) Colitis Status: Inactive (3) Proctitis Status: Inactive (4) Dehydration Status: Inactive (5) Hyperkalemia Status: Acute (6) Acute kidney injury Status: Acute (7) Essential hypertension Status: Chronic (8) Migraine without aura Status: Chronic (9) Vertigo Status: Inactive (10) HLD (hyperlipidemia) Status: Chronic (11) Post-concussion syndrome Status: Chronic (12) History of orthostatic hypotension Status: Chronic (13) Type II diabetes mellitus Status: Chronic Qualifiers: Diabetes mellitus half-way insulin use: with termite treater helper use Diabetes mellitus complication status: with skin complications Diabetes mellitus complication detail: with foot ulcer Qualified Code(s): E11.621 - Type 2 diabetes mellitus with foot ulcer; L97.509 - Non-pressure chronic ulcer of other part of unspecified foot with unspecified severity; Z79.4 - halfway (current) use of insulin History of Present Illness Date of Admission: 12/15/19 Ms Sprague is a 59 year old F with a PMH of brittle DM-2, HTN, HPL, orthostatic hypotension and chronic pain who presented to the ED today after being seen by her trim technician Dr. Brown. She has a chronic L heel wound that she has been seeing podiatry for and receiving debridement. Today during her debridement the bone was visible and 2/2 to concern for osteomyelitis she was sent in to the ED for further work up. The pt denies any significant sx. She states that overall since her last hospitalization she has been feeling well. She is upset about the potential need for surgery. She denies fever or chills. She was given vanc and zosyn in the ED. Her VSS. She does not have an elevated white count. Her lab work is c/w some dehydration, showing ALMA with hyponatremia and hyperkalemia. Her BGT in the ED is 416 but AG is 2. ESR and CRP are both pending. Past Medical History Past Medical History (Chronic Problems): Chronic Problems (Last Reviewed 12/15/19 @ 18:[address] Tri Terry DO) Essential hypertension (Chronic) Migraine without aura (Chronic) HLD (hyperlipidemia) (Chronic) Post-concussion syndrome (Chronic) History of orthostatic hypotension (Chronic) Type II diabetes mellitus (Chronic) Medical History: Medical History (Last Reviewed 12/15/19 @ 18:[address] Tri Terry DO) Essential hypertension (Chronic) I10 Migraine without aura (Chronic) G43.009 Vertigo (Chronic) R42 HLD (hyperlipidemia) (Chronic) E78.5 Post-concussion syndrome (Chronic) F07.81 History of orthostatic hypotension (Chronic) Z86.79 Type II diabetes mellitus (Chronic) E11.9 Chronic pain syndrome G89.4 Malnutrition E46 Allergies metformin Adverse Reaction (Verified 12/15/19 16:29) Diarrhea Home Medications: Ambulatory Orders Medication Instructions Recorded Clonidine HCl [Catapres] 0.2 mg PO TID 12/17/18 Diltiazem CD [Cardizem CD] 180 mg PO DAILY 12/17/18 Insulin Glargine [Lantus SoloStar 20 units SUBCUT QHS 12/17/18 Pen] Insulin Lispro [Humalog KwikPen] 7 unit SQ TIDCM 12/17/18 Insulin Lispro [Humalog KwikPen] See Protocol SQ TIDCM 12/17/18 Magnesium Oxide [Mag-Ox 400] 400 mg PO BID 12/17/18 Ondansetron [Zofran Odt] 4 mg PO Q6H PRN 12/17/18 ibuprofen 600 mg tablet 600 mg PO TID PRN PRN tab 02/16/19 midodrine 2.5 mg tablet 2.5 mg PO TID tab 02/16/19 polyethylene glycol 3350 17 17 g PO DAILY PRN PRN 02/16/19 gram/dose oral powder potassium chloride 20 mEq 20 meq PO BID 02/17/19 tablet,extended release pregabalin 50 mg capsule 50 mg PO TID 02/17/19 traMADol [Ultram] 50 mg PO Q8H 05/04/19 lisinopril 40 mg tablet 20 mg PO BID tab 09/15/19 Aspirin [Aspirin, Baby] 81 mg PO DAILY@0800 12/15/19 Atorvastatin Calcium [Lipitor] 40 mg PO QHS 12/15/19 Glucerna Shake 237 ml PO BID 12/15/19 Pantoprazole Sodium [Protonix] 40 mg PO DAILY 12/15/19 Surgical History: Surgical History (Last Reviewed 12/15/19 @ 18:[address] Tri Terry DO) History of cholecystectomy Z90.49 History of mandibular surgery Z98.890 TMJ replacements X 2 Surgical History: cholecystectomy, - - TMJ surgery Psychiatric History: No pertinent psych hx FURNITURE MOVER HELPER History: No pertinent FURNITURE MOVER HELPER history Smoking Status: Never smoker - *Family History Maternal Family History: Family History (Last Reviewed 12/15/19 @ 18:[address] Tri Terry, DO) Mother Hypertension Father Cancer Emphysema of lung Grandmother Diabetes History Items: - - Recently passed, August 2017 secondary to complications from Alzheimer's disease Paternal Family History: Family History (Last Reviewed 12/15/19 @ 18:[address] Tri Terry, DO) Mother Hypertension Father Cancer Emphysema of lung Grandmother Diabetes History Items: - - Emphysema, lymphoma Review of Systems Constitutional: Denies: Anorexia, Chills, Fever, Night Sweats, Malaise, Weakness, Weight Change, Fatigue Eyes: Denies: Blurred vision, Conjunctivae Inflammation, Double vision, Drainage, Eyelid Inflammation, Pain, Redness, Vision Change HEENT: Denies: Difficulty Hearing, Difficulty Swallowing, Nasal bleeding, Nasal Congestion, Post Nasal Drip, Sinus Congestion, Sinus Drainage, Sore Throat, Visual Changes Cardiovascular: Reports: Edema. Denies: Chest Pain, Claudication, Chest Pressure, Chest Tightness, Heaviness, Light Headedness, Orthopnea, Palpitations, Paroxysmal Noc. Dyspnea, Syncope Respiratory: Denies: Cough, Hemoptysis, Pleuritic Pain, Shortness of Breath, Shortness of breath at rest, Shortness of breath upon exertion, Sputum production, Wheezing Gastrointestinal: Denies: Abdominal Pain, Constipation, Diarrhea, Dyspepsia, Hematemesis, Hematochezia, Nausea, Melena, Vomiting Genitourinary: Denies: Dysuria, Frequency, Hematuria, Hesitancy, Incontinence, Nocturia, Retention, Urgency Gynecological: Denies: Breast symptoms Musculoskeletal: Reports: Foot Pain. Denies: Back Pain, Joint Pain, Joint stiffness, Joint swelling, Joint Tenderness, Muscle pain, Neck Pain Skin: Reports: Lesions, Skin Changes, Wounds. Denies: Dryness, Jaundice, Pruritis, Rash Neurological: Reports: Numbness. Denies: Balance problems, Blurred vision, Double vision, Change in Speech, Slurred speech, Confusion, Difficulty swallowing, Focal weakness, Headaches, Incoordination, Tingling, Tremor, Seizures Psychiatric: Denies: Anxiety, Depression Endocrine: Denies: Change in Body Habitus, Heat/ Cold Intolerance, Polydipsia, Polyuria Hematologic/ Lymphatic: Denies: Adenopathy, Anemia, Easy Bruising, Easy Bleeding, Petechiae, Purpura VTE Information - Inpt Only VTE Present on Admission: No VTE Mechan Device Prophylaxis: None VTE Pharm Prophylaxis ordered?: Yes - Physical Exam Vitals/I&O's: Vital Signs Temp Pulse Resp BP Pulse Ox 98 F 79 15 143/75 H 98 12/15/19 17:25 12/15/19 17:25 12/15/19 17:25 12/15/19 17:25 12/15/19 17:25 Oxygen Delivery Method Room Air Weight: 72.575 kg Body Mass Index (BMI) 26.6 Finger Stick Blood Glucose 412 General: Alert, Oriented x3, Cooperative, No apparent distress, Well developed, Well nourished, - - Middle aged WF sitting up in bed, s/o at bedside HEENT: Atraumatic, PERRLA, EOMI, EAC Clear Oral: Moist Mucosa, No Gingival or Mucosal Lesions/ Ulcerations, - - edentulous Neck: Supple, No JVD, Negative Carotid Bruits, Negative Hepatojugular Reflux, No Nodes, No Nuchal Rigidity, Trachea Midline, Thyroid Normal Size and Texture Lungs: Clear to auscultation, Normal air movement, No rhonchi, No wheeze, No rales Cardiovascular: Regular rate, Regular Rhythm, Normal S1, Normal S2, No murmurs, No Ectopic Activity, No rub noted, No Gallop Abdomen: Bowel Sounds Present, Soft, Non Tender, Non-Distended, No Hepato-splenomegaly, No hernias noted Extremities: No clubbing, No cyanosis, Capillary Refill Less than 3 Seconds, Edema - trace B LE Skin: No rashes, Ulcer/ Wound - Flexor crease of L ankle with benign drainage and necrotic appearing ulcer with purulent drainage L heel Musculoskeletal: No Tenderness to Palpation of Joints or Extremities, No Muscle Wasting Lymphatic: No Cervical, Supraclavicular, or Inguinal Adenopathy Neurological: Cranial nerves II-XII grossly intact, Deep Tendon Reflexes 2+/4 and Symmetrical, Neuro grossly intact, Motor Exam 5/5 strength throughout, - - decreased sensation B feet Psych/Mental Status: Appropriate, Flat Affect, - - upset about foot, Alert and oriented to time, place, person, mood and affect Laboratory Results 12/15/19 17:13: WBC 8.1, RBC 3.37 L, Hgb 9.4 L, Hct 29.4 L, MCV 87.2, MCH 27.9, MCHC 32.0, RDW Std Deviation 39.7, RDW Coeff of Chris 12.3, Plt Count 262, MPV 10.1, Immature Gran % (Auto) 0.400, Neut % (Auto) 74.6 H, Lymph % (Auto) 18.0 L, Letcher % (Auto) 4.1, Eos % (Auto) 2.7, Baso % (Auto) 0.2, Absolute Neuts (auto) 6.0, Absolute Lymphs (auto) 1.45, Nucleated RBC % 0, ESR 81 H 12/15/19 17:13: Sodium 135 L, Potassium 5.8 H, Chloride 103, Carbon Dioxide 30.0, Anion Gap 2 L, BUN 17, Creatinine 1.10 H, Estim Creat Clear Calc 50.77, Est GFR (MDRD) Af Amer 66, Est GFR (MDRD) Non-Af 54 L, BUN/Creatinine Ratio 15.5, Glucose 416 H, Calcium 9.1, Total Bilirubin 0.30, AST 11 L, ALT 12 L, Alkaline Phosphatase 216 H, C-React Prot Ext Range 17.90 H, Total Protein 7.5, Albumin 2.8 L, Globulin 4.7 H, Albumin/Globulin Ratio 0.6 L 12/15/19 17:13: Lactic Acid 1.3 Current Medications Vancomycin HCl 1,250 mg/ (Sodium Chloride) 275 mls @ 167 mls/hr IV X1 ONE Stop: 12/15/19 19:25 Assessment/Plan All Active Problems (Last Reviewed 12/15/19 @ 18:[address] Tri Terry, DO) Hyperkalemia (Acute) Acute kidney injury (Acute) L Heel Infected Diabetic Foot Wound -aerobic cx done today at podiatry office -anaerobic done today in ED -blood cx obtained -start Vanc and Zosyn -ESR/CRP pending -MRI foot -NWB -wound care consult -consult podiatry -may need ID depending on cx and MRI Hyperkalemia -hold k replacement (home meds) -IV hydration -hold lisinopril and use prn for BP ALMA -NS at 100 cc/hr -repeat am lab Hyponatremia -suspect hypovolemic hyponatremia -IVF and recheck in am Anemia -chronic and stable -no s/o bleeding HTN/Orthostatic Hypotension -continue clonidine, diltazem and lisinopril -continue Midodrine -watch for s/o orthostasis DM-2 -continue lantus to 20 u -SSI -log 7 with meals HPL -continue Statin GERD -PPI DVT Prophylaxis -heparin TID Code Status -Full Inpatient E&M: 72207 Init Hosp L3
[2019-12-15 18:30] VITALS: BMI 26.6
[2019-12-15 18:42] VITALS: BP 143/75; PULSE 79; RESP 15; TEMP 36.6; O2SAT 98
--- NOTE | 2019-12-15 18:51 | ED.RN ---
spoke with ED charge coordinator Sonja that this RN did not give the SC humalog.
--- NOTE | 2019-12-15 19:00 | MRI_ITS ---
STUDY: MRI LEFT REARFOOT WITHOUT CONTRAST REASON FOR EXAM: Female, 59 years old. LEFT posterior heel and anterior ankle/foot joint ulcer since October. Diabetes, wound debridement to bone today. COncern for osteomyelitis TECHNIQUE: Standardized fat and water weighted pulse sequences were obtained in all 3 orthogonal planes. COMPARISON: Left foot x-ray dated December 15, 2019 FINDINGS: Mild diffuse subcutaneous edema is present. Diffuse intramuscular edema and muscle atrophy compatible with chronic peripheral neuropathy. No visualized fluid collections. Minimal reactive edema is present in the posterior subcortical region of the calcaneus in addition to mild cortical thinning which is likely due to mild osteomyelitis. Posterior plantar heel subcutaneous tissue is also ulcerated. Normal posterior tibialis tendon. Normal flexor digitorum longus tendon. Normal flexor hallucis longus tendon. Normal peroneus longus and brevis tendons. Normal tibialis anterior tendon. Normal extensor hallucis longus tendon. Normal extensor digitorum longus tendons. Normal Achilles tendon and teno-osseous insertion. Normal plantar fascia. A small plantar calcaneal spur is present. Normal intrinsic muscles of the rearfoot. Normal distal tibiofibular syndesmotic ligamentous complex. Normal lateral ligamentous complex. Normal subtalar ligaments and sinus tarsi. Normal deltoid ligamentous complexes. Normal plantar calcaneonavicular (spring) ligament. Normal tibiotalar articulation. A small subcortical cyst is present in the head and dorsal surface of the talus. A small ankle joint effusion is also present. Normal talar dome. Normal subtalar articulations. Normal talonavicular articulation. Normal calcaneocuboid articulation. Normal navicular-cuneiform articulations. MRI/Lower Ext/No Jt/w/o IMPRESSION: 1. Mild osteomyelitis of the posterior process of the calcaneus with an overlying ulcer Electronically Signed: Shaquille Mckenna MD at 21:01 EDT , Service support ,
[2019-12-15 19:04] VITALS: BP 155/64; PULSE 80; RESP 18; TEMP 36.5; O2SAT 98
[2019-12-15] MEDS: Insulin Lispro 100 UNIT/ML INSULN.PEN 10 UNIT SC (19:11)
[2019-12-15] MEDS: 0.9% Saline Lock 10 ML Syringe IV (20:33)
[2019-12-15 20:37] VITALS: BMI 23.2
--- NOTE | 2019-12-15 20:44 | PCM.RX.CS ---
Consult Pharmacy has been consulted to manage selected antiobiotic: Vancomycin Type of Consult: New start Suspected Infection: Skin/Soft tissue Prior Doses of Antibiotics Received/Current Regimen: vancomycin 1250mg IV x1 ordered in E.R. and started at 20:33 tonight Labs: Sodium 135 mmol/L (136-145) L 12/15/19 17:13 Potassium 5.8 mmol/L (3.5-5.1) H 12/15/19 17:13 Chloride 103 mmol/L (98-107) 12/15/19 17:13 Carbon Dioxide 30.0 mmol/L (21.0-32.0) 12/15/19 17:13 Anion Gap 2 (5-15) L 12/15/19 17:13 BUN 17 mg/dL (7-18) 12/15/19 17:13 Creatinine 1.10 mg/dL (0.55-1.02) H 12/15/19 17:13 Est GFR (MDRD) Af Amer 66 mL/min (>60) 12/15/19 17:13 Est GFR (MDRD) Non-Af 54 mL/min (>60) L 12/15/19 17:13 BUN/Creatinine Ratio 15.5 RATIO (10-20) 12/15/19 17:13 Glucose 416 mg/dL (74-106) H 12/15/19 17:13 Weight used for dosin.3 kg Estimated Creatinine Clearance: 50.8 ml/mi Goal Trough: 15-20 mcg/mL Pharmacy Plan for Drug Dosing: After the initial dose is done, will start 500mg IV q12h tomorrow morning. Will order a trough to be drawn before the 4th total dose. Pharmacy Service will continue to monitor and adjust dosing as required. Follow-Up Labs: Trough Vancomycin Labs to be done on [date and time ordered]: 12/17/19 0830
[2019-12-15] MEDS: 0.9% Normal Saline 1,000 ML 100 ML IV (20:57)
--- NOTE | 2019-12-15 21:30 | CON.PCM_ITS ---
Problem List (1) Pressure ulcer of left heel, stage 4 Status: Acute (2) Type II diabetes mellitus Status: Chronic Qualifiers: Diabetes mellitus terminal computer operator insulin use: with terminal computer operator use Diabetes mellitus complication status: with skin complications Diabetes mellitus complication detail: with foot ulcer Qualified Code(s): E11.621 - Type 2 diabetes mellitus with foot ulcer; L97.509 - Non-pressure chronic ulcer of other part of unspecified foot with unspecified severity; Z79.4 - skilled nursing (current) use of insulin Reason for Consult Date of Consultation: 12/15/19 Reason for Consultation: left heel and foot ulcer History of Present Illness: The patient is a 59 year old F who presents for worsening left heel ulcer for several weeks. Patient also has anterior ankle ulcer for 1 week. Patient has an offloaded surgical shoe that she uses for ambulation. She states she tries to stay off of it as much as possible. Patient does have pain to her heel while weight bearing. Patient was seen today in office where the heel ulcer was noted to have worsened significantly from last visit with malodor and new probing to bone. Patient is a brittle diabetic and states her sugar this morning was in the high 200's down from 400's. Patient denies any N/F/V/C/CP/SOB. Patient and boyfriend stated that the odor became worse yesterday. Patient was sent from the office to the ED for further work up. Past Medical History Past Medical History (Chronic Problems): Chronic Problems (Last Reviewed 12/15/19 @ 18:[address] Tri Terry DO) Essential hypertension (Chronic) Migraine without aura (Chronic) HLD (hyperlipidemia) (Chronic) Post-concussion syndrome (Chronic) History of orthostatic hypotension (Chronic) Type II diabetes mellitus (Chronic) Medical History: Medical History (Last Reviewed 12/15/19 @ 18:[address] Tri Terry DO) Essential hypertension (Chronic) I10 Migraine without aura (Chronic) G43.009 Vertigo (Inactive) R42 HLD (hyperlipidemia) (Chronic) E78.5 Post-concussion syndrome (Chronic) F07.81 History of orthostatic hypotension (Chronic) Z86.79 Type II diabetes mellitus (Chronic) E11.9 Chronic pain syndrome G89.4 Malnutrition E46 Allergies metformin Adverse Reaction (Verified 09/15/20 16:29) Diarrhea Home Medications: Ambulatory Orders Medication Instructions Recorded Clonidine HCl [Catapres] 0.2 mg PO TID 12/17/18 Diltiazem CD [Cardizem CD] 180 mg PO DAILY 12/17/18 Insulin Glargine [Lantus SoloStar 20 units SUBCUT QHS 12/17/18 Pen] Insulin Lispro [Humalog KwikPen] 7 unit SQ TIDCM 12/17/18 Insulin Lispro [Humalog KwikPen] See Protocol SQ TIDCM 12/17/18 Magnesium Oxide [Mag-Ox 400] 400 mg PO BID 12/17/18 Ondansetron [Zofran Odt] 4 mg PO Q6H PRN 12/17/18 ibuprofen 600 mg tablet 600 mg PO TID PRN PRN tab 02/16/19 midodrine 2.5 mg tablet 2.5 mg PO TID tab 02/16/19 polyethylene glycol 3350 17 17 g PO DAILY PRN PRN 02/16/19 gram/dose oral powder potassium chloride 20 mEq 20 meq PO BID 02/17/19 tablet,extended release pregabalin 50 mg capsule 50 mg PO TID 02/17/19 traMADol [Ultram] 50 mg PO Q8H 05/04/19 lisinopril 40 mg tablet 20 mg PO BID tab 09/15/19 Aspirin [Aspirin, Baby] 81 mg PO DAILY@0800 12/15/19 Atorvastatin Calcium [Lipitor] 40 mg PO QHS 12/15/19 Glucerna Shake 237 ml PO BID 12/15/19 Pantoprazole Sodium [Protonix] 40 mg PO DAILY 12/15/19 Surgical History: Surgical History (Last Reviewed 12/15/19 @ 18:[address] 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 Tri Terry DO) Mother Hypertension Father Cancer Emphysema of lung Grandmother Diabetes History Items: - - Recently passed, August 2017 secondary to complications from Alzheimer's disease Paternal Family History: Family History (Last Reviewed 12/15/19 @ 18:[address] Tri Terry DO) Mother Hypertension Father Cancer Emphysema of lung Grandmother Diabetes History Items: - - Emphysema, lymphoma Review of Systems Constitutional: Denies: Chills, Fever, Fatigue Cardiovascular: Reports: Edema - both lower extremity. Denies: Chest Pain Respiratory: Denies: Shortness of Breath Gastrointestinal: Denies: Constipation, Diarrhea Musculoskeletal: Reports: Foot Pain - left heel Skin: Reports: Wounds - left foot and heel Neurological: Reports: Numbness, - Patient Problems: Active and Suspected Problems (Last Reviewed 12/15/19 @ 18:[address] Tri Terry DO) Pressure ulcer of left heel, stage 4 (Acute) - Physical Exam Vitals/I&O's: Vital Signs Temp Pulse Resp BP Pulse Ox 97.7 F L 80 18 155/64 H 98 12/15/19 19:04 12/15/19 19:04 12/15/19 19:04 12/15/19 19:04 12/15/19 19:04 Oxygen Delivery Method Room Air Weight: 63.3 kg Body Mass Index (BMI) 23.2 Finger Stick Blood Glucose 412 General: Alert, Oriented x3 HEENT: Atraumatic Lungs: Normal air movement Cardiovascular: Regular rate Extremities: Edema - compression wrap with noted lines on ankle from them, Peripheral Pulses Normal, - Skin: Ulcer/ Wound, - - left heel measures 4.5x8x1.5cm. There is malodor present. Wound has worsened significantly from last office visit. Now probes to bone. macerated edges, mild bogginess. Surrounding erythema. No purulence. Fibrotic/necrotic base 60/40%. No active drainage. Left anteror ankle measures 4.5x2x9.3cm. Base is 50% granular and fibrotic, into level of sub q. No surroun d erythema. Evidence of edema noted and ankle controlled by compression. Musculoskeletal: - - left heel on palpation, muscle strength intact to all muscle groups Neurological: - - proprioception diminished, sharp/dull diminished, vibratory diminished, light touch abnormal, lack of sensation via 10g SW monofilament with at least 2 of 5 sites of foot tested in a random manner Psych/Mental Status: Normal Affect, Appropriate Laboratory Results 12/15/19 17:13: WBC 8.1, RBC 3.37 L, Hgb 9.4 L, Hct 29.4 L, MCV 87.2, MCH 27.9, MCHC 32.0, RDW Std Deviation 39.7, RDW Coeff of Chris 12.3, Plt Count 262, MPV 10.1, Immature Gran % (Auto) 0.400, Neut % (Auto) 74.6 H, Lymph % (Auto) 18.0 L, [place] % (Auto) 4.1, Eos % (Auto) 2.7, Baso % (Auto) 0.2, Absolute Neuts (auto) 6.0, Absolute Lymphs (auto) 1.45, Nucleated RBC % 0, ESR 81 H 12/15/19 17:13: Sodium 135 L, Potassium 5.8 H, Chloride 103, Carbon Dioxide 30.0, Anion Gap 2 L, BUN 17, Creatinine 1.10 H, Estim Creat Clear Calc 50.77, Est GFR (MDRD) Af Amer 66, Est GFR (MDRD) Non-Af 54 L, BUN/Creatinine Ratio 15.5, Glucose 416 H, Calcium 9.1, Total Bilirubin 0.30, AST 11 L, ALT 12 L, Alkaline Phosphatase 216 H, C-React Prot Ext Range 17.90 H, Total Protein 7.5, Albumin 2.8 L, Globulin 4.7 H, Albumin/Globulin Ratio 0.6 L 12/15/19 17:13: Lactic Acid 1.3 Current Medications Acetaminophen (Tylenol) 650 mg PO Q6H PRN PRN PRN Reason: Pain Score 1-10/Temp > 100.7 F Al Hydroxide/Mg Hydroxide (Mylanta Ii) 30 ml PO Q6H PRN PRN PRN Reason: Gastric Burning Aspirin (Aspirin, Baby) 81 mg PO DAILY@0800 [facility] Atorvastatin Calcium (Lipitor) 40 mg PO QHS [facility] Clonidine (Catapres) 0.2 mg PO TID [facility] Diltiazem HCl (Cardizem Cd) 180 mg PO DAILY [facility] Heparin Sodium (Porcine) (Heparin Na) 5,000 unit SC Q8 [facility] Hydralazine HCl (Apresoline Iv) 10 mg IV Q6H PRN PRN PRN Reason: SBP>160 Piperacillin Sod/Tazobactam (Sod 3.375 gm/ Sodium Chloride) 50 mls @ 12.5 mls/hr IV Q8 [facility] Vancomycin IV Pharmacy to Dose (1 ea/ Sodium Chloride) 500 mls @ 250 mls/hr IV X1 PRN; Protocol PRN Reason: Rx to Dose Sodium Chloride () 1,000 mls @ 100 mls/hr IV .Q10H [facility] Last Admin: 12/15/19 20:57 Dose: 100 mls/hr Documented by: Vancomycin HCl () 500 mg in 100 mls @ 100 mls/hr IV Q12H [facility] Insulin Glargine (Lantus (Bkc)) 20 units SC QHS [facility] Insulin Human Lispro (Humalog Kwikpen (Bkc)) 7 unit SC TIDCM [facility] Insulin Human Lispro (Humalog Kwikpen (Bkc)) 0 unit SC TIDAC [facility]; Protocol Melatonin (Melatonin) 3 mg PO QHS PRN PRN PRN Reason: INSOMNIA Ondansetron HCl (Zofran) 4 mg IV Q8H PRN PRN PRN Reason: NAUSEA/VOMITING Ondansetron HCl (Zofran Odt) 4 mg PO Q6H PRN PRN Reason: NAUSEA Oxycodone HCl (Oxyir) 5 mg PO Q4H PRN PRN PRN Reason: Pain Score 4-10/10 Pantoprazole Sodium (Protonix) 40 mg PO DAILY [facility] Polyethylene Glycol (Miralax) 17 gm PO DAILY PRN PRN PRN Reason: CONSTIPATION Pregabalin (Lyrica) 50 mg PO TID [facility] Sodium Chloride () 10 - 40 ml IV UD PRN PRN Reason: SALINE FLUSH Last Admin: 12/15/19 20:33 Dose: 10 ml Documented by: Assessment/Plan All Active Problems (Last Reviewed 12/15/19 @ 18:[address] Tri Terry, DO) Pressure ulcer of left heel, stage 4 (Acute) Hyperkalemia (Acute) Acute kidney injury (Acute) left heel pressure ulcer to bone left anterior ankle ulcer to sub q edema left worse than right lower extremity DM2 with hyperglycemia and neuropathy Patient seen and examined in office Patient has had this wound for several weeks. Today there was marked deterioration of the wound with malodor, probing to bone, more necrotic area, and general wound appearance worsened. Aerobic cultures taken in office, anaerobic taken on ED Follow culture results Patient sent from office to ED for further evaluation XR reviewed showing possible OM changes to calcaneus MRI pending No leukocytosis elevated ESR and CRP Start IV antibiotics Consider ID consult Possible need for PICC line and longterm IV abx Possible surgical intervention pending MRI results and response to IV abx. Discussed this possibility with the patient, patient seemed reluctant. Will readdress when MRI results return. Strict NWB to left heel. Please offload while in bed especially. Elevate the limb. Patient has offloaded surgical shoe she can wear when up but her time on her feet should be limited. Elevated glucose Continue wound care. Apply silver alginate to wounds and cover with good padding with 4x4, abd, kerlix and offload heel Podiatry will continue to follow If any questions please contact. Thank you for this consult.
[2019-12-15 22:41] VITALS: BP 145/78; PULSE 80; RESP 16; TEMP 36.8; O2SAT 100
[2019-12-15] MEDS: Pregabalin 50 MG Capsule PO (22:47)
[2019-12-15] MEDS: Acetaminophen 325 MG Tablet 650 MG PO (22:47)
[2019-12-15] MEDS: oxyCODONE 5 MG Tablet PO (22:47)
[2019-12-15] MEDS: Atorvastatin Calcium 40 MG Tablet PO (22:48)
[2019-12-15] MEDS: cloNIDine HCl 0.2 MG Tablet PO (22:48)
[2019-12-15] MEDS: Heparin Injection (Vial) 5,000 UNIT/ML VIAL 5000 UNIT SC (22:59)
[2019-12-15 23:01] LABS: Bedside Glucose 191 mg/dL (70-110)
[2019-12-16 03:04] VITALS: BP 109/65; PULSE 72; RESP 16; TEMP 36.9; O2SAT 97
[2019-12-16] MEDS: oxyCODONE 5 MG Tablet PO ×4 (03:06→22:28)
[2019-12-16 05:42] LABS: Absolute Lymphocyte Count 1.51 X10^3/uL (0.83-4.51); Absolute Neutrophil Count 4.1 X10^3/uL (2.0-7.7); Basophil# 0.03 X10^3/uL; Basophil% 0.5 % (0-1); Eosinophil# 0.23 X10^3/uL; Eosinophils% 3.7 % (0-5); Hematocrit 24.4 % (37-47); Hemoglobin 7.6 g/dL (12.0-15.0); Lymphocyte # 1.51 X10^3/ul (4.0); Lymphocyte % 24.4 % (19-41); Mean Corp Hgb Conc 31.1 g/dL (32-36); Mean Corpuscular Hgb 27.2 pg (27.0-32.0); Mean Corpuscular Volume 87.5 fL (81-99); Mean Platelet Vol. 9.9 fl (6.2-12.0); Monocyte# 0.36 X10^3/uL; Monocyte% 5.8 % (0-10); NRBC Flagged by Analyzer 0 % (0-5); Neutrophil # 4.05 X10^3/uL (2.7-7.7); Neutrophil % 65.3 % (47-70); Platelet Count 264 K/mm3 (150-450); RBC Distribution Width CV 12.5 % (11.6-14.6); RBC Distribution Width SD 40.3 fl (35.1-43.9); Red Blood Count 2.79 M/mm3 (4.2-5.4); White Blood Count 6.2 K/mm3 (4.4-11.0)
[2019-12-16 05:48] VITALS: BP 103/59; PULSE 73
[2019-12-16] MEDS: cloNIDine HCl 0.2 MG Tablet PO ×3 (05:49→21:20)
[2019-12-16] MEDS: Pregabalin 50 MG Capsule PO ×3 (05:56→21:24)
[2019-12-16 06:18] LABS: ALB/GLOB Ratio 0.7 RATIO (0.9-2.4); AST(SGOT) 10 U/L (15-37); Alanine Aminotransfer ALT/SGPT 10 U/L (13-56); Albumin, Serum 2.3 g/dL (3.2-5.0); Alkaline Phosphatase 162 U/L (45-117); Anion Gap 3 (5-15); BUN 15 mg/dL (7-18); BUN/Creat Ratio 16.8 RATIO (10-20); Calcium,Total 8.5 mg/dL (8.5-10.1); Chloride 107 mmol/L (98-107); Creatinine, Serum 0.89 mg/dL (0.55-1.02); EST Glomerular Filtration Rate 69 mL/min (>60); Est Glom Filt Rate - Afr Amer 84 mL/min (>60); Estimated Creatinine Clearance 62.76 ml/min; Globulin 3.5 g/dL (2.2-4.2); Glucose 68 mg/dL (74-106); Magnesium 1.8 mg/dL (1.6-2.6); Potassium 4.3 mmol/L (3.5-5.1); Protein, Total 5.8 g/dL (6.4-8.2); Sodium Level 141 mmol/L (136-145)
[2019-12-16] MEDS: 0.9% Normal Saline 1,000 ML 100 ML IV ×2 (06:35→21:47)
--- NOTE | 2019-12-16 07:53 | PCM.PROGNOTE ---
Patient Problems: Active and Suspected Problems (Last Reviewed 12/15/19 @ 18:[address] Tri Terry DO) Pressure ulcer of left heel, stage 4 (Acute) Subjective: Patient was seen bedside resting comfortably. Patient is being seen for infected left heel ulcer. Patient currently has no pain. Patient states she has no symptoms of her hypoglycemia this morning nor her hyperglycemia on admission. Patient denies N/F/V/C/CP/SOB. - Physical Exam Vitals/I&O's: Vital Signs Temp Pulse Resp BP Pulse Ox 98.4 F 73 16 103/59 L 97 12/16/19 03:04 12/16/19 05:48 12/16/19 03:04 12/16/19 05:48 12/16/19 03:04 Oxygen Delivery Method Room Air Weight: 63.3 kg Body Mass Index (BMI) 23.2 Finger Stick Blood Glucose 412 Intake and Output for Last 24 Hours 12/14/19 12/15/19 12/16/19 23:59 23:59 23:59 Intake Total 325 / 685 1461.58 / 1461.58 Output Total 900 / 900 Balance 325 / 285 561.58 / 561.58 General: Alert, Oriented x3 HEENT: Atraumatic Extremities: Capillary Refill Less than 3 Seconds, Peripheral Pulses Normal, Tenderness - left heel Skin: Ulcer/ Wound - left heel measures 4.5x8x1.5cm. There is malodor present, improved from yesterday. probes to bone. macerated edges-improved. Surrounding erythema. No purulence. Fibrotic/necrotic base 60/40%. No active drainage. Left anteror ankle measures 4.5x2x9.3cm. Base is 50% granular and fibrotic, into level of sub q. No surround erythema., - Musculoskeletal: - - left heel pain on palpation, muscle strength intact to all muscle groups, heel offloaded on pillow Neurological: - - proprioception diminished, sharp/dull diminished, vibratory diminished, light touch abnormal Psych/Mental Status: Normal Affect Laboratory Results 12/15/19 17:13: WBC 8.1, RBC 3.37 L, Hgb 9.4 L, Hct 29.4 L, MCV 87.2, MCH 27.9, MCHC 32.0, RDW Std Deviation 39.7, RDW Coeff of Chris 12.3, Plt Count 262, MPV 10.1, Immature Gran % (Auto) 0.400, Neut % (Auto) 74.6 H, Lymph % (Auto) 18.0 L, Saline % (Auto) 4.1, Eos % (Auto) 2.7, Baso % (Auto) 0.2, Absolute Neuts (auto) 6.0, Absolute Lymphs (auto) 1.45, Nucleated RBC % 0, ESR 81 H 12/15/19 17:13: Sodium 135 L, Potassium 5.8 H, Chloride 103, Carbon Dioxide 30.0, Anion Gap 2 L, BUN 17, Creatinine 1.10 H, Estim Creat Clear Calc 50.77, Est GFR (MDRD) Af Amer 66, Est GFR (MDRD) Non-Af 54 L, BUN/Creatinine Ratio 15.5, Glucose 416 H, Calcium 9.1, Total Bilirubin 0.30, AST 11 L, ALT 12 L, Alkaline Phosphatase 216 H, C-React Prot Ext Range 17.90 H, Total Protein 7.5, Albumin 2.8 L, Globulin 4.7 H, Albumin/Globulin Ratio 0.6 L 12/15/19 17:13: Lactic Acid 1.3 12/15/19 22:53: POC Glucose 191 H 12/16/19 05:08: WBC 6.2, RBC 2.79 L, Hgb 7.6 L, Hct 24.4 L, MCV 87.5, MCH 27.2, MCHC 31.1 L, RDW Std Deviation 40.3, RDW Coeff of Chris 12.5, Plt Count 264, MPV 9.9, Immature Gran % (Auto) 0.300, Neut % (Auto) 65.3, Lymph % (Auto) 24.4, Saline % (Auto) 5.8, Eos % (Auto) 3.7, Baso % (Auto) 0.5, Absolute Neuts (auto) 4.1, Absolute Lymphs (auto) 1.51, Nucleated RBC % 0 12/16/19 05:08: Sodium 141, Potassium 4.3, Chloride 107, Carbon Dioxide 31.0, Anion Gap 3 L, BUN 15, Creatinine 0.89, Estim Creat Clear Calc 62.76, Est GFR (MDRD) Af Amer 84, Est GFR (MDRD) Non-Af 69, BUN/Creatinine Ratio 16.8, Glucose 68 L, Calcium 8.5, Magnesium 1.8, Total Bilirubin 0.30, AST 10 L, ALT 10 L, Alkaline Phosphatase 162 H, Total Protein 5.8 L, Albumin 2.3 L, Globulin 3.5, Albumin/Globulin Ratio 0.7 L 12/16/19 05:08: Hemoglobin A1c Pending Current Medications Acetaminophen (Tylenol) 650 mg PO Q6H PRN PRN PRN Reason: Pain Score 1-10/Temp > 100.7 F Last Admin: 12/15/19 22:47 Dose: 650 mg Documented by: Al Hydroxide/Mg Hydroxide (Mylanta Ii) 30 ml PO Q6H PRN PRN PRN Reason: Gastric Burning Aspirin (Aspirin, Baby) 81 mg PO DAILY@0800 [facility] Atorvastatin Calcium (Lipitor) 40 mg PO QHS [facility] Last Admin: 12/15/19 22:48 Dose: 40 mg Documented by: Clonidine (Catapres) 0.2 mg PO TID [facility] Last Admin: 12/16/19 05:49 Dose: 0.2 mg Documented by: Diltiazem HCl (Cardizem Cd) 180 mg PO DAILY [facility] Heparin Sodium (Porcine) (Heparin Na) 5,000 unit SC Q8 [facility] Last Admin: 12/15/19 22:59 Dose: 5,000 unit Documented by: Hydralazine HCl (Apresoline Iv) 10 mg IV Q6H PRN PRN PRN Reason: SBP>160 Piperacillin Sod/Tazobactam (Sod 3.375 gm/ Sodium Chloride) 50 mls @ 12.5 mls/hr IV Q8 [facility] Last Admin: 12/16/19 05:43 Dose: 12.5 mls/hr Documented by: Vancomycin IV Pharmacy to Dose (1 ea/ Sodium Chloride) 500 mls @ 250 mls/hr IV X1 PRN; Protocol PRN Reason: Rx to Dose Sodium Chloride () 1,000 mls @ 100 mls/hr IV .Q10H [facility] Last Admin: 12/16/19 06:35 Dose: 100 mls/hr Documented by: Vancomycin HCl () 500 mg in 100 mls @ 100 mls/hr IV Q12H [facility] Sodium Chloride () 250 mls @ 15 mls/hr IV .[id number] PRN PRN Reason: Saline Flush Last Infusion: 12/16/19 05:43 Dose: 0 mls/hr Documented by: Sodium Chloride () 250 mls @ 15 mls/hr IV .[id number] PRN PRN Reason: Additional IVPB Infusion Magnesium Sulfate 2 gm/ Sodium (Chloride) 104 mls @ 52 mls/hr IV X1 ONE Stop: 12/16/19 09:07 Insulin Glargine (Lantus (Bkc)) 20 units SC QHS [facility] Last Admin: 12/15/19 22:59 Dose: 20 u Documented by: Insulin Human Lispro (Humalog Kwikpen (Bkc)) 7 unit SC TIDCM [facility] Insulin Human Lispro (Humalog Kwikpen (Bkc)) 0 unit SC TIDAC [facility]; Protocol Melatonin (Melatonin) 3 mg PO QHS PRN PRN PRN Reason: INSOMNIA Ondansetron HCl (Zofran) 4 mg IV Q8H PRN PRN PRN Reason: NAUSEA/VOMITING Ondansetron HCl (Zofran Odt) 4 mg PO Q6H PRN PRN Reason: NAUSEA Oxycodone HCl (Oxyir) 5 mg PO Q4H PRN PRN PRN Reason: Pain Score 4-10/10 Last Admin: 12/16/19 03:06 Dose: 5 mg Documented by: Pantoprazole Sodium (Protonix) 40 mg PO DAILY [facility] Polyethylene Glycol (Miralax) 17 gm PO DAILY PRN PRN PRN Reason: CONSTIPATION Pregabalin (Lyrica) 50 mg PO TID [facility] Last Admin: 12/16/19 05:56 Dose: 50 mg Documented by: Sodium Chloride () 10 - 40 ml IV UD PRN PRN Reason: SALINE FLUSH Last Admin: 12/15/19 20:33 Dose: 10 ml Documented by: Medical Necessity - Tobacco Use Smoking Status: Never smoker Tobacco Use: Non-smoker Assessment/Plan All Active Problems (Last Reviewed 12/15/19 @ 18:[address] Tri Terry DO) Pressure ulcer of left heel, stage 4 (Acute) Hyperkalemia (Acute) Acute kidney injury (Acute) left heel pressure ulcer to bone left anterior ankle ulcer to sub q edema left worse than right lower extremity DM2 with hyperglycemia and neuropathy Patient seen and examined in office Patient has had this wound for several weeks. Follow culture results XR reviewed showing possible OM changes to calcaneus MRI showing mild posterior calcaneal osteomyelitic changes No leukocytosis elevated ESR and CRP Start IV antibiotics Would recommend ID consult Likely need for PICC line and retirement IV abx Strict NWB to left heel. Please offload while in bed especially with offloading boot. Elevate the limb. Patient has offloaded surgical shoe she can wear when up but her time on her feet should be limited. Elevated glucose on admission, hypoglycemic this morning without symptoms, patient states this fluctuation is normal Continue wound care. Apply silver alginate to wounds and cover with good padding with 4x4, abd, kerlix and offload heel Had long discussion with patient on MRI results and possible courses of treatment. Discussed at length either doing ocean transportation intermediary course of IV antibiotics to treat bone infection, getting a bone biopsy to direct antibiotic selection, OR debridement with bone biopsy, resection of part of calcaneus to remove infection, all with continued wound care. Discussed all risks, benefits, possible complications, and prognosis. Patient would like some time to think on her options as well as to discuss with her boyfriend. She was reluctant to undergo surgery yesterday upon initial discussion. I asked patient to contact nurse if she has further questions or makes a decision and they can get a hold of me. If patient elects for a surgical option I would be able to do it or Saturday. If patient elects for surgical option may need blood transfusion given her low Hgb and likely EBL of 50cc during surgery, will continue to monitor labs. Blood transfusion could be done after surgery and rechecking of labs Podiatry will continue to follow If any questions please contact.
--- NOTE | 2019-12-16 07:59 | PCM.PN.HOSP ---
Patient Problems: Active and Suspected Problems (Last Reviewed 12/15/19 @ 18:[address] Tri Terry DO) Pressure ulcer of left heel, stage 4 (Acute) Reason for Visit: Follow-up on left heel pressure ulcer to bone/brittle DM Subjective: Patient was seen and examined. Her pain is fairly controlled. Noted to be hypoglycemic this morning. Blood sugars subsequently has been improved. Objective: Physical exam: General: Alert, Oriented x3, Cooperative, No apparent distress, Well developed, Well nourished HEENT: Atraumatic, PERRLA, EOMI, EAC Clear Oral: Moist Mucosa, No Gingival or Mucosal Lesions/ Ulcerations Neck: Supple, No JVD, Negative Carotid Bruits, Negative Hepatojugular Reflux, No Nodes, No Nuchal Rigidity, Trachea Midline, Thyroid Normal Size and Texture Lungs: Clear to auscultation Cardiovascular: Regular rate, Regular Rhythm, Normal S1, Normal S2, No murmurs Abdomen: Bowel Sounds Present, Soft, Non Tender, Non-Distended, No Hepato-splenomegaly, No hernias noted Extremities: Edema - trace B LE Skin: No rashes, dressing over the left lower ankle/foot Musculoskeletal: No Tenderness to Palpation of Joints or Extremities, No Muscle Wasting Lymphatic: No Cervical, Supraclavicular, or Inguinal Adenopathy Neurological: Cranial nerves II-XII grossly intact, Deep Tendon Reflexes 2+/4 and Symmetrical, Neuro grossly intact, Motor Exam 5/5 strength throughout, - - decreased sensation B feet Psych/Mental Status: Appropriate, Flat Affect, Alert and oriented to time, place, person, mood and affect Vitals/I&O's: Vital Signs Temp Pulse Resp BP Pulse Ox 98.4 F 73 16 103/59 L 97 12/16/19 03:04 12/16/19 05:48 12/16/19 03:04 12/16/19 05:48 12/16/19 03:04 Oxygen Delivery Method Room Air Weight: 63.3 kg Body Mass Index (BMI) 23.2 Finger Stick Blood Glucose 412 Intake and Output for Last 24 Hours 12/14/19 12/15/19 12/16/19 23:59 23:59 23:59 Intake Total 325 / 685 1461.58 / 1461.58 Output Total 900 / 900 Balance 325 / 285 561.58 / 561.58 Laboratory Results 12/15/19 17:13: WBC 8.1, RBC 3.37 L, Hgb 9.4 L, Hct 29.4 L, MCV 87.2, MCH 27.9, MCHC 32.0, RDW Std Deviation 39.7, RDW Coeff of Chris 12.3, Plt Count 262, MPV 10.1, Immature Gran % (Auto) 0.400, Neut % (Auto) 74.6 H, Lymph % (Auto) 18.0 L, [place] % (Auto) 4.1, Eos % (Auto) 2.7, Baso % (Auto) 0.2, Absolute Neuts (auto) 6.0, Absolute Lymphs (auto) 1.45, Nucleated RBC % 0, ESR 81 H 12/15/19 17:13: Sodium 135 L, Potassium 5.8 H, Chloride 103, Carbon Dioxide 30.0, Anion Gap 2 L, BUN 17, Creatinine 1.10 H, Estim Creat Clear Calc 50.77, Est GFR (MDRD) Af Amer 66, Est GFR (MDRD) Non-Af 54 L, BUN/Creatinine Ratio 15.5, Glucose 416 H, Calcium 9.1, Total Bilirubin 0.30, AST 11 L, ALT 12 L, Alkaline Phosphatase 216 H, C-React Prot Ext Range 17.90 H, Total Protein 7.5, Albumin 2.8 L, Globulin 4.7 H, Albumin/Globulin Ratio 0.6 L 12/15/19 17:13: Lactic Acid 1.3 12/15/19 22:53: POC Glucose 191 H 12/16/19 05:08: WBC 6.2, RBC 2.79 L, Hgb 7.6 L, Hct 24.4 L, MCV 87.5, MCH 27.2, MCHC 31.1 L, RDW Std Deviation 40.3, RDW Coeff of Chris 12.5, Plt Count 264, MPV 9.9, Immature Gran % (Auto) 0.300, Neut % (Auto) 65.3, Lymph % (Auto) 24.4, [place] % (Auto) 5.8, Eos % (Auto) 3.7, Baso % (Auto) 0.5, Absolute Neuts (auto) 4.1, Absolute Lymphs (auto) 1.51, Nucleated RBC % 0 12/16/19 05:08: Sodium 141, Potassium 4.3, Chloride 107, Carbon Dioxide 31.0, Anion Gap 3 L, BUN 15, Creatinine 0.89, Estim Creat Clear Calc 62.76, Est GFR (MDRD) Af Amer 84, Est GFR (MDRD) Non-Af 69, BUN/Creatinine Ratio 16.8, Glucose 68 L, Calcium 8.5, Magnesium 1.8, Total Bilirubin 0.30, AST 10 L, ALT 10 L, Alkaline Phosphatase 162 H, Total Protein 5.8 L, Albumin 2.3 L, Globulin 3.5, Albumin/Globulin Ratio 0.7 L 12/16/19 05:08: Hemoglobin A1c Pending Current Medications Acetaminophen (Tylenol) 650 mg PO Q6H PRN PRN PRN Reason: Pain Score 1-10/Temp > 100.7 F Last Admin: 12/15/19 22:47 Dose: 650 mg Documented by: Al Hydroxide/Mg Hydroxide (Mylanta Ii) 30 ml PO Q6H PRN PRN PRN Reason: Gastric Burning Aspirin (Aspirin, Baby) 81 mg PO DAILY@0800 [facility] Atorvastatin Calcium (Lipitor) 40 mg PO QHS [facility] Last Admin: 12/15/19 22:48 Dose: 40 mg Documented by: Clonidine (Catapres) 0.2 mg PO TID [facility] Last Admin: 12/16/19 05:49 Dose: 0.2 mg Documented by: Diltiazem HCl (Cardizem Cd) 180 mg PO DAILY [facility] Heparin Sodium (Porcine) (Heparin Na) 5,000 unit SC Q8 [facility] Last Admin: 12/15/19 22:59 Dose: 5,000 unit Documented by: Hydralazine HCl (Apresoline Iv) 10 mg IV Q6H PRN PRN PRN Reason: SBP>160 Piperacillin Sod/Tazobactam (Sod 3.375 gm/ Sodium Chloride) 50 mls @ 12.5 mls/hr IV Q8 [facility] Last Admin: 12/16/19 05:43 Dose: 12.5 mls/hr Documented by: Vancomycin IV Pharmacy to Dose (1 ea/ Sodium Chloride) 500 mls @ 250 mls/hr IV X1 PRN; Protocol PRN Reason: Rx to Dose Sodium Chloride () 1,000 mls @ 100 mls/hr IV .Q10H [facility] Last Admin: 12/16/19 06:35 Dose: 100 mls/hr Documented by: Vancomycin HCl () 500 mg in 100 mls @ 100 mls/hr IV Q12H [facility] Sodium Chloride () 250 mls @ 15 mls/hr IV .[id number] PRN PRN Reason: Saline Flush Last Infusion: 12/16/19 05:43 Dose: 0 mls/hr Documented by: Sodium Chloride () 250 mls @ 15 mls/hr IV .[id number] PRN PRN Reason: Additional IVPB Infusion Magnesium Sulfate 2 gm/ Sodium (Chloride) 104 mls @ 52 mls/hr IV X1 ONE Stop: 12/16/19 09:07 Insulin Glargine (Lantus (Bkc)) 20 units SC QHS [facility] Last Admin: 12/15/19 22:59 Dose: 20 u Documented by: Insulin Human Lispro (Humalog Kwikpen (Bkc)) 7 unit SC TIDCM [facility] Insulin Human Lispro (Humalog Kwikpen (Bkc)) 0 unit SC TIDAC [facility]; Protocol Melatonin (Melatonin) 3 mg PO QHS PRN PRN PRN Reason: INSOMNIA Ondansetron HCl (Zofran) 4 mg IV Q8H PRN PRN PRN Reason: NAUSEA/VOMITING Ondansetron HCl (Zofran Odt) 4 mg PO Q6H PRN PRN Reason: NAUSEA Oxycodone HCl (Oxyir) 5 mg PO Q4H PRN PRN PRN Reason: Pain Score 4-10/10 Last Admin: 12/16/19 03:06 Dose: 5 mg Documented by: Pantoprazole Sodium (Protonix) 40 mg PO DAILY [facility] Polyethylene Glycol (Miralax) 17 gm PO DAILY PRN PRN PRN Reason: CONSTIPATION Pregabalin (Lyrica) 50 mg PO TID [facility] Last Admin: 12/16/19 05:56 Dose: 50 mg Documented by: Sodium Chloride () 10 - 40 ml IV UD PRN PRN Reason: SALINE FLUSH Last Admin: 12/15/19 20:33 Dose: 10 ml Documented by: STROKE Vital Signs/Narrative: Vital Signs Pulse BP 12/16/19 05:48 73 103/59 L Medical Necessity - Tobacco Use Smoking Status: Never smoker Tobacco Use: Non-smoker Assessment/Plan All Active Problems (Last Reviewed 12/15/19 @ 18:[address] Tri Terry, DO) Pressure ulcer of left heel, stage 4 (Acute) Hyperkalemia (Acute) Acute kidney injury (Acute) 1. 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 Hyperkalemia, resolved, continue to hold lisinopril, repeat blood work in a.m. Patient was recently admitted to the ICU with hyperkalemia. She would need to be off lisinopril going forward 3. Acute kidney injury, likely prerenal, from dehydration, improved, Admitted with creatinine of 1.10, currently 0.89, which is about her baseline Continue on IV fluids, repeat blood work in a.m. 4. Hypoglycemia in a brittle diabetic, resolved We will continue to monitor for future hypoglycemia Changes made to patient's insulin 5. 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 Hypoglycemia has been treated. Continue on current insulin regimen with further monitoring for hypoglycemia 6. Hyponatremia, likely hypovolemic, resolved, Repeat blood work in a.m. 7. Anemia, drop in hemoglobin from 9.4-7.6. Likely related to hemodilution Would still check iron stores, FOBT, reticulocyte count 8. Hypertension, controlled, continue on Cardizem, clonidine, hydralazine as needed 9. GERD, stable, on PPI 10. DVT PPx- Heparin SC Inpatient E&M: 37631 Subs Hosp L2
[2019-12-16 08:21] LABS: Hemoglobin A1c 10.9 % (3.8-5.6)
[2019-12-16 09:07] VITALS: BP 140/69; PULSE 84; RESP 16; TEMP 36.4; O2SAT 97
--- NOTE | 2019-12-16 09:11 | NURSING ---
Per clinical pharm, it is unknown if Vancomycin and Zosyn are compatiable. Pt only has one IV site. Zosyn to be done in 28 min. Will wait to hang Vancomycin.
--- NOTE | 2019-12-16 09:25 | NURSING ---
Blood Sugar checked, 44. Pt very clammy, awake, alert but slow to respond at times. Pt states she can feel when she is low. Pt instructed that if she feels symptoms of hypoglycemia that she needs to make nurse aware. Will re-inforce again throughout the day.
[2019-12-16 09:26] LABS: Bedside Glucose 44 mg/dL (70-110)
--- NOTE | 2019-12-16 09:27 | NURSING ---
[place] from lab in here for lab back up.
[2019-12-16] MEDS: Heparin Injection (Vial) 5,000 UNIT/ML VIAL 5000 UNIT SC ×3 (09:28→21:13)
[2019-12-16] MEDS: Aspirin 81 MG TAB.CHEW PO (09:29)
[2019-12-16] MEDS: Pantoprazole Sodium 40 MG Tablet PO (09:29)
[2019-12-16] MEDS: dilTIAZem CD 180 MG Capsule PO (09:29)
[2019-12-16 09:47] LABS: Glucose 47 mg/dL (74-106)
--- NOTE | 2019-12-16 09:48 | NURSING ---
Pt ate 4 Eric Crackers with PG on it and 2 sm cups of Sawyer juice. Pt more talkative. This nurse asked if she feels better, pt responded, yes but still feel low. This nurse will recheck Rehanar.
[2019-12-16 10:39] VITALS: O2SAT 94
[2019-12-16 10:50] LABS: Bedside Glucose 111 mg/dL (70-110)
--- NOTE | 2019-12-16 11:10 | CASEMGMT ---
PRIYA SILVA Face to Face with patient for initial transition planning/care coordination assessment. RN SHIRA introduced self and role at [facility]. Patient sitting in chair, alert and oriented. Patient willing to participate in assessment and is able to answer all questions appropriately. Care providers, pharmacy, and demographics verified. Patient wishes to discharge home, denies need for home health at this time. Patient states she has no further needs or concerns at this time. CM to follow for discharge planning needs that may arise. PCP: Zach Specialists: Kevin doll wig hackler Preferred Pharmacy: [email or web address] Insurance: Spoke Prescription Benefit: yes Living Will/HPOA: none LNOK: significant other Karri Jerri Living Arrangements: Patient lives with significant other in a first floor duplex. 2 steps to enter the home. Patient states she is independent at home, significant other helps with dressing changes. Transportation: significant other. DME/HHC: Patient states she has shower chair, cane, walker, grab bars, rollator, and wheelchair at home. Will monitor course of treatment for need for HHC for wound care and antibiotics Disposition Plan: Patient to discharge home with family support and follow-up plans in place. Jennifer PAGAN, RN, CM
[2019-12-16] MEDS: Vancomycin IV 500 MG/100 ML BAG 100 MG IV ×2 (11:33→21:05)
[2019-12-16 13:09] LABS: Hematocrit 28.1 % (37-47); Hemoglobin 8.9 g/dL (12.0-15.0)
[2019-12-16] MEDS: Insulin Lispro 100 UNIT/ML INSULN.PEN SC ×4 (13:09→16:12)
[2019-12-16 13:12] LABS: Platelet Count 306 K/mm3 (150-450); RET-HE 31.7 pg (30-35); Reticulocyte Count 1.56 % (0.5-1.5)
[2019-12-16 13:16] LABS: Bedside Glucose 422 mg/dL (70-110)
[2019-12-16 13:23] LABS: Ferritin 50 ng/mL (8-252); Iron 31 ug/dL (50-170); Iron Binding Capacity,Total 281 ug/dL (250-450)
--- NOTE | 2019-12-16 14:49 | PCM.NTREPORT ---
Nutrition Therapy Report - History Nutrition Services has been consulted to:: Manage nutrient details of diet order, Conduct nutrition education Current diet / nutrition support order:: cardiac - Anthropometric Measurements Height:: 5 ft 5 in Weight:: 63.3 kg Body Mass Index (BMI):: 23.2 - Relevant Labs Relevant Labs:: RBC 2.79 M/mm3 (4.2-5.4) L 12/16/19 05:08 Hgb 8.9 g/dL (12.0-15.0) L 12/16/19 12:58 Hct 28.1 % (37-47) L 12/16/19 12:58 MCHC 31.1 g/dL (32-36) L 12/16/19 05:08 Neut % (Auto) 74.6 % (47-70) H 12/15/19 17:13 Lymph % (Auto) 18.0 % (19-41) L 12/15/19 17:13 ESR 81 mm/hr (0-30) H 12/15/19 17:13 Retic Count 1.56 % (0.5-1.5) H 12/16/19 12:58 Sodium 135 mmol/L (136-145) L 12/15/19 17:13 Potassium 5.8 mmol/L (3.5-5.1) H 12/15/19 17:13 Anion Gap 3 (5-15) L 12/16/19 05:08 Creatinine 1.10 mg/dL (0.55-1.02) H 12/15/19 17:13 Est GFR (MDRD) Non-Af 54 mL/min (>60) L 12/15/19 17:13 Glucose 47 mg/dL (74-106) L 12/16/19 09:30 Hemoglobin A1c 10.9 % (3.8-5.6) H 12/16/19 05:08 Iron 31 ug/dL (50-170) L 12/16/19 12:58 Iron Saturation 11.0 % (15.0-55.0) L 12/16/19 12:58 AST 10 U/L (15-37) L 12/16/19 05:08 ALT 10 U/L (13-56) L 12/16/19 05:08 Alkaline Phosphatase 162 U/L (45-117) H 09/16/20 05:08 C-React Prot Ext Range 17.90 mg/L (0.0-3.0) H 12/15/19 17:13 Total Protein 5.8 g/dL (6.4-8.2) L 12/16/19 05:08 Albumin 2.3 g/dL (3.2-5.0) L 12/16/19 05:08 Globulin 4.7 g/dL (2.2-4.2) H 12/15/19 17:13 Albumin/Globulin Ratio 0.7 RATIO (0.9-2.4) L 12/16/19 05:08 - Assessment Food / Nutrition-Related History:: Pt reports variable PO intake/appetite [employer] d/t feeling unwell over past 1 month. No special diet at home, tries to watch carbs. Has a continuous blood glucose monitor. Thought average BG was ~234mg/dL last week. Reports episodes of hyper and hypoglycemia despite following sliding scale for insulin. However, A1C indicates poor long-term glycemic control. Per EMR, wt on 11/11/19 159.4# and CBW 139.6#-19.8#/12% wt loss x 1 month, significant for malnutrition. Pt states she was not drinking ONS at home. - Nutrition Diagnosis Problem / Etiology / Signs & Symptoms (PES):: Acute severe malnutrition related to inadequate energy intake as evidenced by 19.8#/12% wt loss x 1 month, reported PO intake meeting <75% of estimated nutritional needs x 1 month Evidence of Malnutrition Exists:: Yes Severe PCM:: Acute Illness - Nutrition Intervention Nutrition Prescription:: 3615-9599 calories, 60-75 g protein - Food / Nutrient Delivery Interventions Summary of nutrition intervention:: Pt agreeable to consistent CHO diet this admission. Discussed ONS- thinks Brian is too gritty but willing to try. Verbally discussed CHO counting using pt menu. Reviewed sources of protein in diet and encouraged high-protein selections. Pt verbalized understanding. No questions for RDN at this time. Nutrition support ordered as / adjusted to:: 1600 calorie, consistent CHO diet; 1 packet Brian BID; 120mL Glucerna 4x/day Nutrition education provided?: No - Pt declined; verbally discussed CHO counting and protein. - MNT Monitoring Further MNT monitoring and evaluation required?: Yes MNT Follow-up in:: 3-5 days
[2019-12-16 14:54] VITALS: BMI 23.2
--- NOTE | 2019-12-16 15:08 | PCM.HP.ID ---
Problem List (1) Osteomyelitis Status: Acute Reason for Consult: infection Consulted by: Dr. Sheriff History of Present Illness: The patient is a 59 year old F with DM, presented from wound center to the ED with about 1.5 months of progressive L heel wound, pain, swelling. Minimal drainage and redness. No fever. Sx started with some blistering. No outpt abx. Bone debridement done 12/[address] Brown in the office. Admitted on vanc/zosyn, feeling ok. Full ROS performed and neg except as noted above. - Medical History Past Medical History (Chronic Problems): Chronic Problems (Last Reviewed 12/15/19 @ 18:[address] Tri Terry, DO) Essential hypertension (Chronic) Migraine without aura (Chronic) HLD (hyperlipidemia) (Chronic) Post-concussion syndrome (Chronic) History of orthostatic hypotension (Chronic) Type II diabetes mellitus (Chronic) Allergies/Adverse Reactions: Allergies metformin Adverse Reaction (Verified 12/15/19 16:29) Diarrhea Home Medications: Ambulatory Orders Medication Instructions Recorded Clonidine HCl [Catapres] 0.2 mg PO TID 12/17/18 Diltiazem CD [Cardizem CD] 180 mg PO DAILY 12/17/18 Insulin Glargine [Lantus SoloStar 20 units SUBCUT QHS 12/17/18 Pen] Insulin Lispro [Humalog KwikPen] 7 unit SQ TIDCM 12/17/18 Insulin Lispro [Humalog KwikPen] See Protocol SQ TIDCM 12/17/18 Magnesium Oxide [Mag-Ox 400] 400 mg PO BID 12/17/18 Ondansetron [Zofran Odt] 4 mg PO Q6H PRN 12/17/18 ibuprofen 600 mg tablet 600 mg PO TID PRN PRN tab 02/16/19 midodrine 2.5 mg tablet 2.5 mg PO PRN PRN tab 02/16/19 polyethylene glycol 3350 17 17 g PO DAILY PRN PRN 02/16/19 gram/dose oral powder potassium chloride 20 mEq 20 meq PO BID 02/17/19 tablet,extended release pregabalin 50 mg capsule 50 mg PO TID 02/17/19 traMADol [Ultram] 50 mg PO Q8H 05/04/19 lisinopril 40 mg tablet 20 mg PO BID tab 09/15/19 Aspirin [Aspirin, Baby] 81 mg PO DAILY@0800 12/15/19 Atorvastatin Calcium [Lipitor] 40 mg PO QHS 12/15/19 Glucerna Shake 237 ml PO BID 12/15/19 Pantoprazole Sodium [Protonix] 40 mg PO DAILY 12/15/19 - Social History Tobacco Use: non-smoker Vital Signs Temp Pulse Resp BP Pulse Ox 97.5 F L 84 16 140/69 H 94 12/16/19 09:07 12/16/19 09:07 12/16/19 09:07 12/16/19 09:07 12/16/19 10:39 Oxygen Delivery Method Room Air Weight: 63.3 kg Body Mass Index (BMI) 23.2 Finger Stick Blood Glucose 412 Laboratory Tests Past 24 Hrs 12/15/19 12/15/19 12/15/19 17:13 17:13 17:13 WBC 8.1 RBC 3.37 L Hgb 9.4 L Hct 29.4 L MCV 87.2 MCH 27.9 MCHC 32.0 RDW Std Deviation 39.7 RDW Coeff of Chris 12.3 Plt Count 262 MPV 10.1 Immature Gran % (Auto) 0.400 Neut % (Auto) 74.6 H Lymph % (Auto) 18.0 L [place] % (Auto) 4.1 Eos % (Auto) 2.7 Baso % (Auto) 0.2 Absolute Neuts (auto) 6.0 Absolute Lymphs (auto) 1.45 Nucleated RBC % 0 ESR 81 H Retic Count Immature Retic Fraction Retic Hgb Equivalent Sodium 135 L Potassium 5.8 H Chloride 103 Carbon Dioxide 30.0 Anion Gap 2 L BUN 17 Creatinine 1.10 H Estim Creat Clear Calc 50.77 Est GFR (MDRD) Af Amer 66 Est GFR (MDRD) Non-Af 54 L BUN/Creatinine Ratio 15.5 Glucose 416 H Hemoglobin A1c Lactic Acid 1.3 Calcium 9.1 Magnesium Iron TIBC Iron Saturation Ferritin Total Bilirubin 0.30 AST 11 L ALT 12 L Alkaline Phosphatase 216 H C-React Prot Ext Range 17.90 H Total Protein 7.5 Albumin 2.8 L Globulin 4.7 H Albumin/Globulin Ratio 0.6 L 12/16/19 12/16/19 12/16/19 05:08 05:08 05:08 WBC 6.2 RBC 2.79 L Hgb 7.6 L Hct 24.4 L MCV 87.5 MCH 27.2 MCHC 31.1 L RDW Std Deviation 40.3 RDW Coeff of Chris 12.5 Plt Count 264 MPV 9.9 Immature Gran % (Auto) 0.300 Neut % (Auto) 65.3 Lymph % (Auto) 24.4 [place] % (Auto) 5.8 Eos % (Auto) 3.7 Baso % (Auto) 0.5 Absolute Neuts (auto) 4.1 Absolute Lymphs (auto) 1.51 Nucleated RBC % 0 ESR Retic Count Immature Retic Fraction Retic Hgb Equivalent Sodium 141 Potassium 4.3 Chloride 107 Carbon Dioxide 31.0 Anion Gap 3 L BUN 15 Creatinine 0.89 Estim Creat Clear Calc 62.76 Est GFR (MDRD) Af Amer 84 Est GFR (MDRD) Non-Af 69 BUN/Creatinine Ratio 16.8 Glucose 68 L Hemoglobin A1c 10.9 H Lactic Acid Calcium 8.5 Magnesium 1.8 Iron TIBC Iron Saturation Ferritin Total Bilirubin 0.30 AST 10 L ALT 10 L Alkaline Phosphatase 162 H C-React Prot Ext Range Total Protein 5.8 L Albumin 2.3 L Globulin 3.5 Albumin/Globulin Ratio 0.7 L 12/16/19 12/16/19 12/16/19 09:30 12:58 12:58 WBC RBC Hgb Hct MCV MCH MCHC RDW Std Deviation RDW Coeff of Chris Plt Count MPV Immature Gran % (Auto) Neut % (Auto) Lymph % (Auto) [place] % (Auto) Eos % (Auto) Baso % (Auto) Absolute Neuts (auto) Absolute Lymphs (auto) Nucleated RBC % ESR Retic Count 1.56 H Immature Retic Fraction 9.70 Retic Hgb Equivalent 31.7 Sodium Potassium Chloride Carbon Dioxide Anion Gap BUN Creatinine Estim Creat Clear Calc Est GFR (MDRD) Af Amer Est GFR (MDRD) Non-Af BUN/Creatinine Ratio Glucose 47 L Hemoglobin A1c Lactic Acid Calcium Magnesium Iron 31 L TIBC 281 Iron Saturation 11.0 L Ferritin 50 Total Bilirubin AST ALT Alkaline Phosphatase C-React Prot Ext Range Total Protein Albumin Globulin Albumin/Globulin Ratio 12/16/19 12:58 WBC RBC Hgb 8.9 L Hct 28.1 L MCV MCH MCHC RDW Std Deviation RDW Coeff of Chris Plt Count MPV Immature Gran % (Auto) Neut % (Auto) Lymph % (Auto) [place] % (Auto) Eos % (Auto) Baso % (Auto) Absolute Neuts (auto) Absolute Lymphs (auto) Nucleated RBC % ESR Retic Count Immature Retic Fraction Retic Hgb Equivalent Sodium Potassium Chloride Carbon Dioxide Anion Gap BUN Creatinine Estim Creat Clear Calc Est GFR (MDRD) Af Amer Est GFR (MDRD) Non-Af BUN/Creatinine Ratio Glucose Hemoglobin A1c Lactic Acid Calcium Magnesium Iron TIBC Iron Saturation Ferritin Total Bilirubin AST ALT Alkaline Phosphatase C-React Prot Ext Range Total Protein Albumin Globulin Albumin/Globulin Ratio - Other Studies Radiology: [] reviewed Other Studies: [] Route of nutrition/ use of supplements: [] Nutritional Intake: [] IV Site: [] Howard Catheter: [] - Physical Exam General: Alert, Oriented x3, Cooperative, No apparent distress HEENT: Atraumatic, PERRLA, EOMI Neck: Supple, No Nodes Lungs: Clear to auscultation, Normal air movement Cardiovascular: Regular rate, Regular Rhythm Abdomen: Soft, Non Tender, Non-Distended Extremities: No edema Skin: Ulcer/ Wound - foot wrapped IV Site: Peripheral, without redness Musculoskeletal: No Tenderness to Palpation of Joints or Extremities Neurological: Cranial nerves II-XII grossly intact - Assessment/Plan Antibiotics: [] Assessment/Plan: [] Active and Suspected Problems (Last Reviewed 12/15/19 @ 18:[address] Tri Terry, DO) Pressure ulcer of left heel, stage 4 (Acute) L heel osteo - wound cx with strep and GNR x2 so far. OR planned. Cont empiric vanc/zosyn. Tentative plan at this point is for 6 weeks iv abx at discharge. Likely will need vascular workup if not done previously. Will follow, thank you
[2019-12-16 15:40] VITALS: BP 119/67; PULSE 78; RESP 18; TEMP 36.8; O2SAT 99
[2019-12-16] MEDS: Glucerna Shake 120 ML LIQUID PO (16:10)
[2019-12-16 17:16] LABS: Bedside Glucose 372 mg/dL (70-110)
[2019-12-16 21:02] VITALS: BP 129/76; PULSE 81; RESP 18; TEMP 36.9; O2SAT 100
[2019-12-16] MEDS: Atorvastatin Calcium 40 MG Tablet PO (21:20)
[2019-12-16 21:26] LABS: Bedside Glucose 152 mg/dL (70-110)
[2019-12-17 03:43] VITALS: BP 99/56; PULSE 74; RESP 18; TEMP 36.7; O2SAT 98
[2019-12-17] MEDS: oxyCODONE 5 MG Tablet PO ×3 (03:49→20:56)
[2019-12-17] MEDS: Heparin Injection (Vial) 5,000 UNIT/ML VIAL 5000 UNIT SC ×3 (05:28→23:26)
[2019-12-17] MEDS: cloNIDine HCl 0.2 MG Tablet PO ×3 (05:29→21:07)
[2019-12-17] MEDS: Pregabalin 50 MG Capsule PO ×3 (05:29→21:16)
[2019-12-17 06:27] LABS: Absolute Lymphocyte Count 1.89 X10^3/uL (0.83-4.51); Absolute Neutrophil Count 3.3 X10^3/uL (2.0-7.7); Basophil# 0.01 X10^3/uL; Basophil% 0.2 % (0-1); Eosinophil# 0.21 X10^3/uL; Eosinophils% 3.7 % (0-5); Hematocrit 23.5 % (37-47); Hemoglobin 7.5 g/dL (12.0-15.0); Lymphocyte # 1.89 X10^3/ul (4.0); Mean Corp Hgb Conc 31.9 g/dL (32-36); Mean Corpuscular Hgb 28.1 pg (27.0-32.0); Mean Platelet Vol. 9.8 fl (6.2-12.0); Monocyte# 0.35 X10^3/uL; Monocyte% 6.1 % (0-10); NRBC Flagged by Analyzer 0 % (0-5); Neutrophil # 3.25 X10^3/uL (2.7-7.7); Neutrophil % 56.7 % (47-70); Platelet Count 255 K/mm3 (150-450); RBC Distribution Width CV 12.8 % (11.6-14.6); RBC Distribution Width SD 41.2 fl (35.1-43.9); Red Blood Count 2.67 M/mm3 (4.2-5.4); White Blood Count 5.7 K/mm3 (4.4-11.0)
[2019-12-17 06:50] LABS: Bedside Glucose 97 mg/dL (70-110)
[2019-12-17 06:56] LABS: ALB/GLOB Ratio 0.6 RATIO (0.9-2.4); AST(SGOT) 11 U/L (15-37); Alanine Aminotransfer ALT/SGPT 12 U/L (13-56); Albumin, Serum 2.2 g/dL (3.2-5.0); Alkaline Phosphatase 151 U/L (45-117); Anion Gap 4 (5-15); BUN 21 mg/dL (7-18); BUN/Creat Ratio 14.8 RATIO (10-20); Calcium,Total 8.3 mg/dL (8.5-10.1); Chloride 109 mmol/L (98-107); Creatinine, Serum 1.42 mg/dL (0.55-1.02); EST Glomerular Filtration Rate 41 mL/min (>60); Est Glom Filt Rate - Afr Amer 49 mL/min (>60); Estimated Creatinine Clearance 39.33 ml/min; Globulin 3.6 g/dL (2.2-4.2); Glucose 103 mg/dL (74-106); Potassium 4.5 mmol/L (3.5-5.1); Protein, Total 5.8 g/dL (6.4-8.2); Sodium Level 142 mmol/L (136-145)
[2019-12-17 07:07] VITALS: O2SAT 98
--- NOTE | 2019-12-17 07:44 | PN_ITS ---
Patient Problems: Active and Suspected Problems (Last Reviewed 12/15/19 @ 18:[address] Tri Terry DO) Pressure ulcer of left heel, stage 4 (Acute) Osteomyelitis (Acute) Vitals/I&O's: Vital Signs Temp Pulse Resp BP Pulse Ox 98.0 F 74 18 99/56 L 98 12/17/19 03:43 12/17/19 03:43 12/17/19 03:43 12/17/19 03:43 12/17/19 07:07 Oxygen Delivery Method Room Air Weight: 63.3 kg Body Mass Index (BMI) 23.2 Finger Stick Blood Glucose 412 Intake and Output for Last 24 Hours 12/15/19 12/16/19 12/17/19 23:59 23:59 23:59 Intake Total 325 / 685 3287.25 / 3887.25 1150.25 / 1150.25 Output Total 1100 / 1500 900 / 900 Balance 325 / 285 2187.25 / 2387.25 250.25 / 250.25 Laboratory Results 12/16/19 05:08: Hemoglobin A1c 10.9 H 12/16/19 09:18: POC Glucose 44 L* 12/16/19 09:30: Glucose 47 L 12/16/19 10:02: POC Glucose 111 H 12/16/19 12:58: Retic Count 1.56 H, Immature Retic Fraction 9.70, Retic Hgb Equivalent 31.7 12/16/19 12:58: Iron 31 L, TIBC 281, Iron Saturation 11.0 L, Ferritin 50 12/16/19 12:58: Hgb 8.9 L, Hct 28.1 L 12/16/19 13:07: POC Glucose 422 H 12/16/19 15:57: POC Glucose 372 H 12/16/19 21:13: POC Glucose 152 H 12/17/19 06:10: WBC 5.7, RBC 2.67 L, Hgb 7.5 L, Hct 23.5 L, MCV 88.0, MCH 28.1, MCHC 31.9 L, RDW Std Deviation 41.2, RDW Coeff of Chris 12.8, Plt Count 255, MPV 9.8, Immature Gran % (Auto) 0.300, Neut % (Auto) 56.7, Lymph % (Auto) 33.0, [place] % (Auto) 6.1, Eos % (Auto) 3.7, Baso % (Auto) 0.2, Absolute Neuts (auto) 3.3, Absolute Lymphs (auto) 1.89, Nucleated RBC % 0 12/17/19 06:10: Sodium 142, Potassium 4.5, Chloride 109 H, Carbon Dioxide 29.0, Anion Gap 4 L, BUN 21 H, Creatinine 1.42 H, Estim Creat Clear Calc 39.33, Est GFR (MDRD) Af Amer 49 L, Est GFR (MDRD) Non-Af 41 L, BUN/Creatinine Ratio 14.8, Glucose 103, Calcium 8.3 L, Total Bilirubin 0.20, AST 11 L, ALT 12 L, Alkaline Phosphatase 151 H, Total Protein 5.8 L, Albumin 2.2 L, Globulin 3.6, Albumin/Globulin Ratio 0.6 L 12/17/19 06:44: POC Glucose 97 Current Medications Acetaminophen (Tylenol) 650 mg PO Q6H PRN PRN PRN Reason: Pain Score 1-10/Temp > 100.7 F Last Admin: 12/15/19 22:47 Dose: 650 mg Documented by: Al Hydroxide/Mg Hydroxide (Mylanta Ii) 30 ml PO Q6H PRN PRN PRN Reason: Gastric Burning Aspirin (Aspirin, Baby) 81 mg PO DAILY@0800 [facility] Last Admin: 12/16/19 09:29 Dose: 81 mg Documented by: Atorvastatin Calcium (Lipitor) 40 mg PO QHS [facility] Last Admin: 12/16/19 21:20 Dose: 40 mg Documented by: Clonidine (Catapres) 0.2 mg PO TID [facility] Last Admin: 12/17/19 05:29 Dose: 0.2 mg Documented by: Diltiazem HCl (Cardizem Cd) 180 mg PO DAILY [facility] Last Admin: 12/16/19 09:29 Dose: 180 mg Documented by: Heparin Sodium (Porcine) (Heparin Na) 5,000 unit SC Q8 [facility] Last Admin: 12/17/19 05:28 Dose: 5,000 unit Documented by: Hydralazine HCl (Apresoline Iv) 10 mg IV Q6H PRN PRN PRN Reason: SBP>160 Piperacillin Sod/Tazobactam (Sod 3.375 gm/ Sodium Chloride) 50 mls @ 12.5 mls/hr IV Q8 [facility] Last Admin: 12/17/19 05:24 Dose: 12.5 mls/hr Documented by: Vancomycin IV Pharmacy to Dose (1 ea/ Sodium Chloride) 500 mls @ 250 mls/hr IV X1 PRN; Protocol PRN Reason: Rx to Dose Sodium Chloride () 1,000 mls @ 100 mls/hr IV .Q10H [facility] Last Infusion: 12/16/19 22:48 Dose: 100 mls/hr Documented by: Vancomycin HCl () 500 mg in 100 mls @ 100 mls/hr IV Q12H [facility] Last Infusion: 12/16/19 22:42 Dose: Infused Documented by: Sodium Chloride () 250 mls @ 15 mls/hr IV .[id number] PRN PRN Reason: Saline Flush Last Infusion: 12/17/19 05:25 Dose: 0 mls/hr Documented by: Sodium Chloride () 250 mls @ 15 mls/hr IV .[id number] PRN PRN Reason: Additional IVPB Infusion Insulin Glargine (Lantus (Bkc)) 20 units SC QHS [facility] Last Admin: 12/16/19 21:14 Dose: 20 u Documented by: Insulin Human Lispro (Humalog Kwikpen (Bk)) 0 unit SC TIDAC [facility]; Protocol Last Admin: 12/17/19 06:46 Dose: Not Given Documented by: Insulin Human Lispro (Humalog Kwikpen (Bkc)) 5 unit SC TIDCM [facility] Last Admin: 12/16/19 16:12 Dose: 5 units Documented by: Melatonin (Melatonin) 3 mg PO QHS PRN PRN PRN Reason: INSOMNIA Nutritional Formula (Lactose Free) (Glucerna Shake) 120 ml PO 4X/DAY [facility] Last Admin: 12/16/19 21:48 Dose: Not Given Documented by: Ondansetron HCl (Zofran) 4 mg IV Q8H PRN PRN PRN Reason: NAUSEA/VOMITING Ondansetron HCl (Zofran Odt) 4 mg PO Q6H PRN PRN Reason: NAUSEA Oxycodone HCl (Oxyir) 5 mg PO Q4H PRN PRN PRN Reason: Pain Score 4-10/10 Last Admin: 12/17/19 03:49 Dose: 5 mg Documented by: Pantoprazole Sodium (Protonix) 40 mg PO DAILY [facility] Last Admin: 12/16/19 09:29 Dose: 40 mg Documented by: Polyethylene Glycol (Miralax) 17 gm PO DAILY PRN PRN PRN Reason: CONSTIPATION Pregabalin (Lyrica) 50 mg PO TID [facility] Last Admin: 12/17/19 05:29 Dose: 50 mg Documented by: Sodium Chloride () 10 - 40 ml IV UD PRN PRN Reason: SALINE FLUSH Last Admin: 12/15/19 20:33 Dose: 10 ml Documented by: STROKE Vital Signs/Narrative: Vital Signs Pulse Ox 12/17/19 07:07 98 Medical Necessity - Tobacco Use Smoking Status: Never smoker Tobacco Use: Non-smoker Assessment/Plan All Active Problems (Last Reviewed 12/15/19 @ 18:[address] Tri Terry, DO) Pressure ulcer of left heel, stage 4 (Acute) Osteomyelitis (Acute) Hyperkalemia (Acute) Acute kidney injury (Acute) Inpatient E&M: 24248 Subs Hosp L2
--- NOTE | 2019-12-17 07:45 | PCM.PROGNOTE ---
Patient Problems: Active and Suspected Problems (Last Reviewed 12/15/19 @ 18:[address] Tri Terry, DO) Pressure ulcer of left heel, stage 4 (Acute) Osteomyelitis (Acute) Subjective: Patient seen and examined bedside. She presents for worsening left foot ulceration with bone infection. Patient reports no issues overnight. Pain well controlled. Patient denies N/F/V/C/CP/SOB. Patient states she made a decision and would like to avoid surgery at this time and just try antibiotics. - Physical Exam Vitals/I&O's: Vital Signs Temp Pulse Resp BP Pulse Ox 98.0 F 74 18 99/56 L 98 12/17/19 03:43 12/17/19 03:43 12/17/19 03:43 12/17/19 03:43 12/17/19 07:07 Oxygen Delivery Method Room Air Weight: 63.3 kg Body Mass Index (BMI) 23.2 Finger Stick Blood Glucose 412 Intake and Output for Last 24 Hours 12/15/19 12/16/19 12/17/19 23:59 23:59 23:59 Intake Total 325 / 685 3287.25 / 3887.25 1150.25 / 1150.25 Output Total 1100 / 1500 900 / 900 Balance 325 / 285 2187.25 / 2387.25 250.25 / 250.25 General: Alert, Oriented x3 HEENT: Atraumatic Extremities: - - Capillary Refill Less than 3 Seconds, Peripheral Pulses Normal, Tenderness - left heel Skin: Ulcer/ Wound - - left heel measures 4.5x8x1.5cm. There is malodor present, improved from yesterday. probes to bone. macerated edges-improved. Surrounding erythema-improved. No purulence. Fibrotic/necrotic base 60/40%. No active drainage. Left anteror ankle measures 4.5x2x9.3cm. Base is 50% granular and fibrotic, into level of sub q. minimal surround erythema, - Musculoskeletal: - - left heel pain on palpation, muscle strength intact to all muscle groups, heel offloaded on pillow and in offloading boot Neurological: - - proprioception diminished, sharp/dull diminished, vibratory diminished, light touch abnormal Laboratory Results 12/16/19 05:08: Hemoglobin A1c 10.9 H 12/16/19 09:18: POC Glucose 44 L* 12/16/19 09:30: Glucose 47 L 12/16/19 10:02: POC Glucose 111 H 12/16/19 12:58: Retic Count 1.56 H, Immature Retic Fraction 9.70, Retic Hgb Equivalent 31.7 12/16/19 12:58: Iron 31 L, TIBC 281, Iron Saturation 11.0 L, Ferritin 50 12/16/19 12:58: Hgb 8.9 L, Hct 28.1 L 12/16/19 13:07: POC Glucose 422 H 12/16/19 15:57: POC Glucose 372 H 12/16/19 21:13: POC Glucose 152 H 12/17/19 06:10: WBC 5.7, RBC 2.67 L, Hgb 7.5 L, Hct 23.5 L, MCV 88.0, MCH 28.1, MCHC 31.9 L, RDW Std Deviation 41.2, RDW Coeff of Chris 12.8, Plt Count 255, MPV 9.8, Immature Gran % (Auto) 0.300, Neut % (Auto) 56.7, Lymph % (Auto) 33.0, [place] % (Auto) 6.1, Eos % (Auto) 3.7, Baso % (Auto) 0.2, Absolute Neuts (auto) 3.3, Absolute Lymphs (auto) 1.89, Nucleated RBC % 0 12/17/19 06:10: Sodium 142, Potassium 4.5, Chloride 109 H, Carbon Dioxide 29.0, Anion Gap 4 L, BUN 21 H, Creatinine 1.42 H, Estim Creat Clear Calc 39.33, Est GFR (MDRD) Af Amer 49 L, Est GFR (MDRD) Non-Af 41 L, BUN/Creatinine Ratio 14.8, Glucose 103, Calcium 8.3 L, Total Bilirubin 0.20, AST 11 L, ALT 12 L, Alkaline Phosphatase 151 H, Total Protein 5.8 L, Albumin 2.2 L, Globulin 3.6, Albumin/Globulin Ratio 0.6 L 12/17/19 06:44: POC Glucose 97 Current Medications Acetaminophen (Tylenol) 650 mg PO Q6H PRN PRN PRN Reason: Pain Score 1-10/Temp > 100.7 F Last Admin: 12/15/19 22:47 Dose: 650 mg Documented by: Al Hydroxide/Mg Hydroxide (Mylanta Ii) 30 ml PO Q6H PRN PRN PRN Reason: Gastric Burning Aspirin (Aspirin, Baby) 81 mg PO DAILY@0800 [facility] Last Admin: 12/16/19 09:29 Dose: 81 mg Documented by: Atorvastatin Calcium (Lipitor) 40 mg PO QHS [facility] Last Admin: 12/16/19 21:20 Dose: 40 mg Documented by: Clonidine (Catapres) 0.2 mg PO TID [facility] Last Admin: 12/17/19 05:29 Dose: 0.2 mg Documented by: Diltiazem HCl (Cardizem Cd) 180 mg PO DAILY [facility] Last Admin: 12/16/19 09:29 Dose: 180 mg Documented by: Heparin Sodium (Porcine) (Heparin Na) 5,000 unit SC Q8 [facility] Last Admin: 12/17/19 05:28 Dose: 5,000 unit Documented by: Hydralazine HCl (Apresoline Iv) 10 mg IV Q6H PRN PRN PRN Reason: SBP>160 Piperacillin Sod/Tazobactam (Sod 3.375 gm/ Sodium Chloride) 50 mls @ 12.5 mls/hr IV Q8 [facility] Last Admin: 12/17/19 05:24 Dose: 12.5 mls/hr Documented by: Vancomycin IV Pharmacy to Dose (1 ea/ Sodium Chloride) 500 mls @ 250 mls/hr IV X1 PRN; Protocol PRN Reason: Rx to Dose Sodium Chloride () 1,000 mls @ 100 mls/hr IV .Q10H [facility] Last Infusion: 12/16/19 22:48 Dose: 100 mls/hr Documented by: Vancomycin HCl () 500 mg in 100 mls @ 100 mls/hr IV Q12H [facility] Last Infusion: 12/16/19 22:42 Dose: Infused Documented by: Sodium Chloride () 250 mls @ 15 mls/hr IV .[id number] PRN PRN Reason: Saline Flush Last Infusion: 12/17/19 05:25 Dose: 0 mls/hr Documented by: Sodium Chloride () 250 mls @ 15 mls/hr IV .[id number] PRN PRN Reason: Additional IVPB Infusion Insulin Glargine (Lantus (Bkc)) 20 units SC QHS [facility] Last Admin: 12/16/19 21:14 Dose: 20 u Documented by: Insulin Human Lispro (Humalog Kwikpen (Bkc)) 0 unit SC TIDAC [facility]; Protocol Last Admin: 12/17/19 06:46 Dose: Not Given Documented by: Insulin Human Lispro (Humalog Kwikpen (Bkc)) 5 unit SC TIDCM [facility] Last Admin: 12/16/19 16:12 Dose: 5 units Documented by: Melatonin (Melatonin) 3 mg PO QHS PRN PRN PRN Reason: INSOMNIA Nutritional Formula (Lactose Free) (Glucerna Shake) 120 ml PO 4X/DAY [facility] Last Admin: 12/16/19 21:48 Dose: Not Given Documented by: Ondansetron HCl (Zofran) 4 mg IV Q8H PRN PRN PRN Reason: NAUSEA/VOMITING Ondansetron HCl (Zofran Odt) 4 mg PO Q6H PRN PRN Reason: NAUSEA Oxycodone HCl (Oxyir) 5 mg PO Q4H PRN PRN PRN Reason: Pain Score 4-10/10 Last Admin: 12/17/19 03:49 Dose: 5 mg Documented by: Pantoprazole Sodium (Protonix) 40 mg PO DAILY [facility] Last Admin: 12/16/19 09:29 Dose: 40 mg Documented by: Polyethylene Glycol (Miralax) 17 gm PO DAILY PRN PRN PRN Reason: CONSTIPATION Pregabalin (Lyrica) 50 mg PO TID [facility] Last Admin: 12/17/19 05:29 Dose: 50 mg Documented by: Sodium Chloride () 10 - 40 ml IV UD PRN PRN Reason: SALINE FLUSH Last Admin: 12/15/19 20:33 Dose: 10 ml Documented by: Medical Necessity - Tobacco Use Smoking Status: Never smoker Tobacco Use: Non-smoker Assessment/Plan All Active Problems (Last Reviewed 12/15/19 @ 18:[address] Tri Terry, DO) Pressure ulcer of left heel, stage 4 (Acute) Osteomyelitis (Acute) Hyperkalemia (Acute) Acute kidney injury (Acute) left heel pressure ulcer to bone left anterior ankle ulcer to sub q edema left worse than right lower extremity DM2 with hyperglycemia and neuropathy Patient seen and examined in office Patient has had this wound for 6 weeks. Follow culture results Office swab cultures growing stret agalactiae and gram negative rick XR reviewed showing possible OM changes to calcaneus MRI showing mild posterior calcaneal osteomyelitic changes No leukocytosis elevated ESR and CRP Contlinue IV antibiotics per ID ID consult Will need PICC line and terminal operations supervisor IV abx Strict NWB to left heel. Please offload while in bed especially with offloading boot. Elevate the limb. Patient has offloaded surgical shoe she can wear when up but her time on her feet should be limited. Continue wound care. Apply hydrogel to anterior ankle wound and silver alginate to heel wound and cover with good padding with 4x4, abd, kerlix and offload heel Upon further discussion patient has decided to try a course of IV antibiotic to heal the calcaneal osteomyelitis instead of surgical intervention. Patient states that if this fails she will consider surgical intervention. She doesn't wish to proceed with any surgery at this time. We will continue wound care Podiatry will continue to follow If any questions please contact.
[2019-12-17] MEDS: Pantoprazole Sodium 40 MG Tablet PO (07:51)
[2019-12-17] MEDS: dilTIAZem CD 180 MG Capsule PO (07:51)
[2019-12-17] MEDS: Aspirin 81 MG TAB.CHEW PO (07:51)
[2019-12-17] MEDS: 0.9% Normal Saline 1,000 ML 100 ML IV (07:54)
[2019-12-17 07:55] VITALS: BP 123/68; PULSE 80; RESP 18; TEMP 37.1; O2SAT 97
--- NOTE | 2019-12-17 08:56 | NURSING ---
PRIYA Valentin stated that Dr Brown had been in this am to change the left heel dressing. dressing is currently D&I. offloading boot in place. will follow as needed.
[2019-12-17 09:10] LABS: Vancomycin, Trough Level 17.7 ug/mL (5.0-15.0)
[2019-12-17] MEDS: Insulin Lispro 100 UNIT/ML INSULN.PEN SC ×3 (09:21→16:36)
[2019-12-17] MEDS: Vancomycin IV 500 MG/100 ML BAG 100 MG IV ×2 (09:24→20:59)
--- NOTE | 2019-12-17 09:33 | DCINST_ITS ---
Discharge Diet: Carb Control Diet Discharge Activity: Use Walker, - - minimal activity May shower in (days): 0 - keep foot and dressing clean, dry, intact Weight Bearing Status: No weight bearing - left foot, minimal to toes if necessary Call your doctor if your incision/area has: Sudden Increased Bleeding, Increased Pain/ Swelling, Increased Redness, Foul Smelling Discharge Call your doctor if you observe: Fever of 101 or Higher, Coldness, Increased Pain, Change in Color, Inability to urinate, Shortness of breath, Dizziness, Fainting spells, Chest pain, Increased palpitations (irregular heartbeat), Uncontrolled pain Change Dressing in (Days):: 1 - Daily dresing changes please. Apply hydrogel to anterior ankle wound and silver alginate to heel wound and cover with good padding with 4x4, abd, kerlix and offload heel Cleanse incision/area with: Soap & Water Allergies/Adverse Reactions: Allergies metformin Adverse Reaction (Verified 12/15/19 16:29) Diarrhea Medications to take at Discharge Clonidine HCl [Catapres] 0.2 mg PO TID 12/17/18 Diltiazem CD [Cardizem CD] 180 mg PO DAILY 12/17/18 Insulin Glargine [Lantus SoloStar Pen] 20 units SUBCUT QHS 12/17/18 Insulin Lispro [Humalog KwikPen] 7 unit SQ TIDCM 12/17/18 Insulin Lispro [Humalog KwikPen] See Protocol SQ TIDCM 12/17/18 Magnesium Oxide [Mag-Ox 400] 400 mg PO BID 12/17/18 Ondansetron [Zofran Odt] 4 mg PO Q6H PRN 12/17/18 ibuprofen 600 mg tablet 600 mg PO TID PRN PRN tab 02/16/19 midodrine 2.5 mg tablet 2.5 mg PO PRN PRN tab 02/16/19 polyethylene glycol 3350 17 gram/dose oral powder 17 g PO DAILY PRN PRN 02/16/19 potassium chloride 20 mEq tablet,extended release 20 meq PO BID 02/17/19 pregabalin 50 mg capsule 50 mg PO TID 02/17/19 traMADol [Ultram] 50 mg PO Q8H 05/04/19 lisinopril 40 mg tablet 20 mg PO BID tab 09/15/19 Aspirin [Aspirin, Baby] 81 mg PO DAILY@0800 12/15/19 Atorvastatin Calcium [Lipitor] 40 mg PO QHS 12/15/19 Glucerna Shake 237 ml PO BID 12/15/19 Pantoprazole Sodium [Protonix] 40 mg PO DAILY 12/15/19 Primary Care Physician: Dennys Serrano MD [Primary Care Provider] - Please follow up with your Primary Care Physician in: within 2 weeks for better blood sugar control Test Results: Test results from this visit will be discussed in further detail at your follow- up appointment, if applicable. Please Follow Up With: Dr America Brown DPM When: 1 week
--- NOTE | 2019-12-17 10:43 | PN.ID_ITS ---
Patient Problems: Active and Suspected Problems (Last Reviewed 12/15/19 @ 18:[address] Tri Terry, DO) Pressure ulcer of left heel, stage 4 (Acute) Osteomyelitis (Acute) Subjective: Feeling better, no fever, foot less sore - Physical Exam Vitals/I&O's: Vital Signs Temp Pulse Resp BP Pulse Ox 98.7 F 80 18 123/68 H 97 12/17/19 07:55 12/17/19 07:55 12/17/19 07:55 12/17/19 07:55 12/17/19 07:55 Oxygen Delivery Method Room Air Weight: 63.3 kg Body Mass Index (BMI) 23.2 Finger Stick Blood Glucose 412 Intake and Output for Last 24 Hours 12/15/19 12/16/19 12/17/19 23:59 23:59 23:59 Intake Total 325 / 685 3287.25 / 3887.25 2361.92 / 2361.92 Output Total 1100 / 1500 900 / 900 Balance 325 / 285 2187.25 / 2387.25 1461.92 / 1461.92 General: Alert, Cooperative, No apparent distress Lungs: Clear to auscultation, Normal air movement Cardiovascular: Regular rate, Regular Rhythm Abdomen: Soft, Non Tender, Non-Distended Skin: Ulcer/ Wound - foot wrapped Laboratory Results 12/16/19 10:02: POC Glucose 111 H 12/16/19 12:58: Retic Count 1.56 H, Immature Retic Fraction 9.70, Retic Hgb Equi valent 31.7 12/16/19 12:58: Iron 31 L, TIBC 281, Iron Saturation 11.0 L, Ferritin 50 12/16/19 12:58: Hgb 8.9 L, Hct 28.1 L 12/16/19 13:07: POC Glucose 422 H 12/16/19 15:57: POC Glucose 372 H 12/16/19 21:13: POC Glucose 152 H 12/17/19 06:10: WBC 5.7, RBC 2.67 L, Hgb 7.5 L, Hct 23.5 L, MCV 88.0, MCH 28.1, MCHC 31.9 L, RDW Std Deviation 41.2, RDW Coeff of Chris 12.8, Plt Count 255, MPV 9.8, Immature Gran % (Auto) 0.300, Neut % (Auto) 56.7, Lymph % (Auto) 33.0, [place] % (Auto) 6.1, Eos % (Auto) 3.7, Baso % (Auto) 0.2, Absolute Neuts (auto) 3.3, Absolute Lymphs (auto) 1.89, Nucleated RBC % 0 12/17/19 06:10: Sodium 142, Potassium 4.5, Chloride 109 H, Carbon Dioxide 29.0, Anion Gap 4 L, BUN 21 H, Creatinine 1.42 H, Estim Creat Clear Calc 39.33, Est GFR (MDRD) Af Amer 49 L, Est GFR (MDRD) Non-Af 41 L, BUN/Creatinine Ratio 14.8, Glucose 103, Calcium 8.3 L, Total Bilirubin 0.20, AST 11 L, ALT 12 L, Alkaline Phosphatase 151 H, Total Protein 5.8 L, Albumin 2.2 L, Globulin 3.6, Albumin/Globulin Ratio 0.6 L 12/17/19 06:44: POC Glucose 97 12/17/19 08:24: Vancomycin Trough 17.7 H Current Medications Acetaminophen (Tylenol) 650 mg PO Q6H PRN PRN PRN Reason: Pain Score 1-10/Temp > 100.7 F Last Admin: 12/15/19 22:47 Dose: 650 mg Documented by: Al Hydroxide/Mg Hydroxide (Mylanta Ii) 30 ml PO Q6H PRN PRN PRN Reason: Gastric Burning Aspirin (Aspirin, Baby) 81 mg PO DAILY@0800 [facility] Last Admin: 12/17/19 07:51 Dose: 81 mg Documented by: Atorvastatin Calcium (Lipitor) 40 mg PO QHS [facility] Last Admin: 12/16/19 21:20 Dose: 40 mg Documented by: Clonidine (Catapres) 0.2 mg PO TID [facility] Last Admin: 12/17/19 05:29 Dose: 0.2 mg Documented by: Diltiazem HCl (Cardizem Cd) 180 mg PO DAILY [facility] Last Admin: 12/17/19 07:51 Dose: 180 mg Documented by: Heparin Sodium (Porcine) (Heparin Na) 5,000 unit SC Q8 [facility] Last Admin: 12/17/19 05:28 Dose: 5,000 unit Documented by: Hydralazine HCl (Apresoline Iv) 10 mg IV Q6H PRN PRN PRN Reason: SBP>160 Piperacillin Sod/Tazobactam (Sod 3.375 gm/ Sodium Chloride) 50 mls @ 12.5 mls/hr IV Q8 [facility] Last Infusion: 12/17/19 09:26 Dose: Infused Documented by: Vancomycin IV Pharmacy to Dose (1 ea/ Sodium Chloride) 500 mls @ 250 mls/hr IV X1 PRN; Protocol PRN Reason: Rx to Dose Sodium Chloride () 1,000 mls @ 100 mls/hr IV .Q10H [facility] Last Infusion: 12/17/19 10:26 Dose: 100 mls/hr Documented by: Vancomycin HCl () 500 mg in 100 mls @ 100 mls/hr IV Q12H [facility] Last Infusion: 12/17/19 10:26 Dose: Infused Documented by: Sodium Chloride () 250 mls @ 15 mls/hr IV .[id number] PRN PRN Reason: Saline Flush Last Infusion: 12/17/19 09:26 Dose: 15 mls/hr Documented by: Sodium Chloride () 250 mls @ 15 mls/hr IV .[id number] PRN PRN Reason: Additional IVPB Infusion Insulin Glargine (Lantus (Bkc)) 20 units SC QHS [facility] Last Admin: 12/16/19 21:14 Dose: 20 u Documented by: Insulin Human Lispro (Humalog Kwikpen (Bkc)) 0 unit SC TIDAC [facility]; Protocol Last Admin: 12/17/19 06:46 Dose: Not Given Documented by: Insulin Human Lispro (Humalog Kwikpen (Bkc)) 5 unit SC TIDCM [facility] Last Admin: 12/17/19 09:21 Dose: 5 units Documented by: Melatonin (Melatonin) 3 mg PO QHS PRN PRN PRN Reason: INSOMNIA Nutritional Formula (Lactose Free) (Glucerna Shake) 120 ml PO 4X/DAY [facility] Last Admin: 12/17/19 07:52 Dose: Not Given Documented by: Ondansetron HCl (Zofran) 4 mg IV Q8H PRN PRN PRN Reason: NAUSEA/VOMITING Ondansetron HCl (Zofran Odt) 4 mg PO Q6H PRN PRN Reason: NAUSEA Oxycodone HCl (Oxyir) 5 mg PO Q4H PRN PRN PRN Reason: Pain Score 4-10/10 Last Admin: 12/17/19 07:50 Dose: 5 mg Documented by: Pantoprazole Sodium (Protonix) 40 mg PO DAILY [facility] Last Admin: 12/17/19 07:51 Dose: 40 mg Documented by: Polyethylene Glycol (Miralax) 17 gm PO DAILY PRN PRN PRN Reason: CONSTIPATION Pregabalin (Lyrica) 50 mg PO TID [facility] Last Admin: 12/17/19 05:29 Dose: 50 mg Documented by: Sodium Chloride () 10 - 40 ml IV UD PRN PRN Reason: SALINE FLUSH Last Admin: 12/15/19 20:33 Dose: 10 ml Documented by: Medical Necessity - Tobacco Use Smoking Status: Never smoker Tobacco Use: Non-smoker Route of nutrition/ use of supplements: [] Nutritional Intake: [] IV Site: [] Howard Catheter: [] - Assessment/Plan Antibiotics: [] Assessment/Plan: [] Active and Suspected Problems (Last Reviewed 12/15/19 @ 18:[address] Tri Terry DO) Pressure ulcer of left heel, stage 4 (Acute) L heel osteo - wound cx with strep and GNR x2 so far. Pt has decided against surgical debridement; counseled her that would likely help get her infection controlled quicker and decrease chance of further surgery or amputation. She is not interested at this time. Cont empiric vanc/zosyn. Tentative plan at this point is for 6 weeks iv abx at discharge. Likely will need vascular workup if not done previously. Will order picc. Will follow, d/w comp field case manager
--- NOTE | 2019-12-17 10:59 | PCM.RX.CS ---
Consult Pharmacy has been consulted to manage selected antiobiotic: Vancomycin Type of Consult: Follow-up Suspected Infection: Skin/Soft tissue, Osteomyelitis Prior Doses of Antibiotics Received/Current Regimen: On 500mg iv q12h Labs: Sodium 142 mmol/L (136-145) 12/17/19 06:10 Potassium 4.5 mmol/L (3.5-5.1) 12/17/19 06:10 Chloride 109 mmol/L (98-107) H 12/17/19 06:10 Carbon Dioxide 29.0 mmol/L (21.0-32.0) 12/17/19 06:10 Anion Gap 4 (5-15) L 12/17/19 06:10 BUN 21 mg/dL (7-18) H 12/17/19 06:10 Creatinine 1.42 mg/dL (0.55-1.02) H 12/17/19 06:10 Est GFR (MDRD) Af Amer 49 mL/min (>60) L 12/17/19 06:10 Est GFR (MDRD) Non-Af 41 mL/min (>60) L 12/17/19 06:10 BUN/Creatinine Ratio 14.8 RATIO (10-20) 12/17/19 06:10 Glucose 103 mg/dL (74-106) 12/17/19 06:10 Vancomycin Trough 17.7 ug/mL (5.0-15.0) H 12/17/19 08:24 Weight used for dosin.3 kg Estimated Creatinine Clearance: ~39ml/min Goal Trough: 15-20 mcg/mL Pharmacy Plan for Drug Dosing: Trough today 17.7 (goal range 15-20 mcg/ml). Renal function changed from Cr 0.89 to 1.42. Will continue same dosage and get another level on 12.18.19. Pharmacy Service will continue to monitor and adjust dosing as required. Follow-Up Labs: Trough Vancomycin - 12.18.19 @2029 before 2100 dose
[2019-12-17 11:35] LABS: Bedside Glucose 76 mg/dL (70-110)
--- NOTE | 2019-12-17 11:46 | PN_ITS ---
Patient Problems: Active and Suspected Problems (Last Reviewed 12/15/19 @ 18:[address] Tri Terry, DO) Pressure ulcer of left heel, stage 4 (Acute) Osteomyelitis (Acute) Reason for Visit: Follow-up on left heel pressure ulcer to bone/brittle DM Subjective: Patient seen and examined. Her pain is controlled. Blood sugars are better. All subspecialist notes reviewed. Objective: Physical exam: General: Alert, Oriented x3, Cooperative, No apparent distress, Well developed, Well nourished HEENT: Atraumatic, PERRLA, EOMI, EAC Clear Oral: Moist Mucosa, No Gingival or Mucosal Lesions/ Ulcerations Neck: Supple, No JVD, Negative Carotid Bruits, Negative Hepatojugular Reflux, No Nodes, No Nuchal Rigidity, Trachea Midline, Thyroid Normal Size and Texture Lungs: Clear to auscultation Cardiovascular: Regular rate, Regular Rhythm, Normal S1, Normal S2, No murmurs Abdomen: Bowel Sounds Present, Soft, Non Tender, Non-Distended, No Hepato- splenomegaly, No hernias noted Extremities: Edema - trace B LE Skin: No rashes, dressing over the left lower ankle/foot Musculoskeletal: No Tenderness to Palpation of Joints or Extremities, No Muscle Wasting Lymphatic: No Cervical, Supraclavicular, or Inguinal Adenopathy Neurological: Cranial nerves II-XII grossly intact, Deep Tendon Reflexes 2+/4 and Symmetrical, Neuro grossly intact, Motor Exam 5/5 strength throughout, - - decreased sensation B feet Psych/Mental Status: Appropriate, Flat Affect, Alert and oriented to time, place, person, mood and affect Vitals/I&O's: Vital Signs Temp Pulse Resp BP Pulse Ox 98.7 F 80 18 123/68 H 97 12/17/19 07:55 12/17/19 07:55 12/17/19 07:55 12/17/19 07:55 12/17/19 07:55 Oxygen Delivery Method Room Air Weight: 63.3 kg Body Mass Index (BMI) 23.2 Finger Stick Blood Glucose 412 Intake and Output for Last 24 Hours 12/15/19 12/16/19 12/17/19 23:59 23:59 23:59 Intake Total 325 / 685 3287.25 / 3887.25 2721.92 / 2721.92 Output Total 1100 / 1500 2300 / 2300 Balance 325 / 285 2187.25 / 2387.25 421.92 / 421.92 Laboratory Results 12/16/19 12:58: Retic Count 1.56 H, Immature Retic Fraction 9.70, Retic Hgb Equivalent 31.7 12/16/19 12:58: Iron 31 L, TIBC 281, Iron Saturation 11.0 L, Ferritin 50 12/16/19 12:58: Hgb 8.9 L, Hct 28.1 L 12/16/19 13:07: POC Glucose 422 H 12/16/19 15:57: POC Glucose 372 H 12/16/19 21:13: POC Glucose 152 H 12/17/19 06:10: WBC 5.7, RBC 2.67 L, Hgb 7.5 L, Hct 23.5 L, MCV 88.0, MCH 28.1, MCHC 31.9 L, RDW Std Deviation 41.2, RDW Coeff of Chris 12.8, Plt Count 255, MPV 9.8, Immature Gran % (Auto) 0.300, Neut % (Auto) 56.7, Lymph % (Auto) 33.0, [place] % (Auto) 6.1, Eos % (Auto) 3.7, Baso % (Auto) 0.2, Absolute Neuts (auto) 3.3, Absolute Lymphs (auto) 1.89, Nucleated RBC % 0 12/17/19 06:10: Sodium 142, Potassium 4.5, Chloride 109 H, Carbon Dioxide 29.0, Anion Gap 4 L, BUN 21 H, Creatinine 1.42 H, Estim Creat Clear Calc 39.33, Est GFR (MDRD) Af Amer 49 L, Est GFR (MDRD) Non-Af 41 L, BUN/Creatinine Ratio 14.8, Glucose 103, Calcium 8.3 L, Total Bilirubin 0.20, AST 11 L, ALT 12 L, Alkaline Phosphatase 151 H, Total Protein 5.8 L, Albumin 2.2 L, Globulin 3.6, Albumin/Globulin Ratio 0.6 L 12/17/19 06:44: POC Glucose 97 12/17/19 08:24: Vancomycin Trough 17.7 H 12/17/19 11:27: POC Glucose 76 Current Medications Acetaminophen (Tylenol) 650 mg PO Q6H PRN PRN PRN Reason: Pain Score 1-10/Temp > 100.7 F Last Admin: 12/15/19 22:47 Dose: 650 mg Documented by: Al Hydroxide/Mg Hydroxide (Mylanta Ii) 30 ml PO Q6H PRN PRN PRN Reason: Gastric Burning Aspirin (Aspirin, Baby) 81 mg PO DAILY@0800 [facility] Last Admin: 12/17/19 07:51 Dose: 81 mg Documented by: Atorvastatin Calcium (Lipitor) 40 mg PO QHS [facility] Last Admin: 12/16/19 21:20 Dose: 40 mg Documented by: Clonidine (Catapres) 0.2 mg PO TID [facility] Last Admin: 12/17/19 05:29 Dose: 0.2 mg Documented by: Diltiazem HCl (Cardizem Cd) 180 mg PO DAILY [facility] Last Admin: 12/17/19 07:51 Dose: 180 mg Documented by: Heparin Sodium (Porcine) (Heparin Na) 5,000 unit SC Q8 [facility] Last Admin: 12/17/19 05:28 Dose: 5,000 unit Documented by: Hydralazine HCl (Apresoline Iv) 10 mg IV Q6H PRN PRN PRN Reason: SBP>160 Piperacillin Sod/Tazobactam (Sod 3.375 gm/ Sodium Chloride) 50 mls @ 12.5 mls/hr IV Q8 [facility] Last Infusion: 12/17/19 09:26 Dose: Infused Documented by: Vancomycin IV Pharmacy to Dose (1 ea/ Sodium Chloride) 500 mls @ 250 mls/hr IV X1 PRN; Protocol PRN Reason: Rx to Dose Sodium Chloride () 1,000 mls @ 100 mls/hr IV .Q10H [facility] Last Infusion: 12/17/19 10:26 Dose: 100 mls/hr Documented by: Vancomycin HCl () 500 mg in 100 mls @ 100 mls/hr IV Q12H [facility] Last Infusion: 12/17/19 10:26 Dose: Infused Documented by: Sodium Chloride () 250 mls @ 15 mls/hr IV .[id number] PRN PRN Reason: Saline Flush Last Infusion: 12/17/19 09:26 Dose: 15 mls/hr Documented by: Sodium Chloride () 250 mls @ 15 mls/hr IV .[id number] PRN PRN Reason: Additional IVPB Infusion Ferric Sodium Gluconate Complex 250 mg/ Sodium Chloride 270 mls @ 135 mls/hr IV X1 ONE Stop: 12/17/19 13:44 Insulin Glargine (Lantus (Bkc)) 20 units SC QHS [facility] Last Admin: 12/16/19 21:14 Dose: 20 u Documented by: Insulin Human Lispro (Humalog Kwikpen (Bkc)) 0 unit SC TIDAC [facility]; Protocol Last Admin: 12/17/19 11:27 Dose: Not Given Documented by: Insulin Human Lispro (Humalog Kwikpen (Bk)) 5 unit SC TIDCM [facility] Last Admin: 12/17/19 09:21 Dose: 5 units Documented by: Melatonin (Melatonin) 3 mg PO QHS PRN PRN PRN Reason: INSOMNIA Nutritional Formula (Lactose Free) (Glucerna Shake) 120 ml PO 4X/DAY [facility] Last Admin: 12/17/19 07:52 Dose: Not Given Documented by: Ondansetron HCl (Zofran) 4 mg IV Q8H PRN PRN PRN Reason: NAUSEA/VOMITING Ondansetron HCl (Zofran Odt) 4 mg PO Q6H PRN PRN Reason: NAUSEA Oxycodone HCl (Oxyir) 5 mg PO Q4H PRN PRN PRN Reason: Pain Score 4-10/10 Last Admin: 12/17/19 07:50 Dose: 5 mg Documented by: Pantoprazole Sodium (Protonix) 40 mg PO DAILY [facility] Last Admin: 12/17/19 07:51 Dose: 40 mg Documented by: Polyethylene Glycol (Miralax) 17 gm PO DAILY PRN PRN PRN Reason: CONSTIPATION Pregabalin (Lyrica) 50 mg PO TID [facility] Last Admin: 12/17/19 05:29 Dose: 50 mg Documented by: Sodium Chloride () 10 - 40 ml IV UD PRN PRN Reason: SALINE FLUSH Last Admin: 12/15/19 20:33 Dose: 10 ml Documented by: STROKE Vital Signs/Narrative: Vital Signs Temp Pulse Resp BP Pulse Ox 12/17/19 07:55 98.7 F 80 18 123/68 H 97 Medical Necessity - Tobacco Use Smoking Status: Never smoker Tobacco Use: Non-smoker Assessment/Plan All Active Problems (Last Reviewed 12/15/19 @ 18:[address] Tri Terry DO) Pressure ulcer of left heel, stage 4 (Acute) Osteomyelitis (Acute) Hyperkalemia (Acute) Acute kidney injury (Acute) 1. Left heel osteomyelitis of the posterior process of the calcaneus/infected diabetic ulcer Patient declined surgery. Medically management now. On IV Zosyn and vancomycin Podiatry and ID following. PICC line ordered 2. Hyperkalemia, resolved, continue to hold lisinopril, repeat blood work in a.m. Patient was recently admitted to the ICU with hyperkalemia. She would need to be off lisinopril going forward 3. Acute kidney injury, likely prerenal, from dehydration, worsened Admitted with creatinine of 1.10, currently 1.42, which is about her baseline Continue on IV fluids, repeat blood work in a.m. 4. Hypoglycemia in a brittle diabetic, resolved We will continue to monitor for future hypoglycemia Changes made to patient's insulin 5. 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 Hypoglycemia has been treated. Continue on current insulin regimen with further monitoring for hypoglycemia 6. Hyponatremia, likely hypovolemic, resolved Repeat blood work in a.m. 7. Anemia, iron deficiency, 7.5, FOBT pending Will give Venofer 200mg IV x 3 8. Hypertension, controlled, continue on Cardizem, clonidine, hydralazine as needed 9. GERD, stable, on PPI 10. DVT PPx- Heparin SC Inpatient E&M: 20878 Subs Hosp L2
[2019-12-17 13:52] VITALS: BP 104/61; PULSE 74; RESP 18; TEMP 36.7; O2SAT 94
--- NOTE | 2019-12-17 14:30 | CASEMGMT ---
PRIYA SILVA updated that patient will need IV ATB at discharge. PRIYA SILVA provided list providers and patient would like [facility] for IV ATB and [facility]. PRIYA SILVA sent referral to [facility] and they will be able to accept patient if billed through [facility]. PRIYA SILVA sent referral to [facility] and awaiting call back. Still awaiting script for IV ATB at discharge. PRIYA SILVA will continue to follow this patient and plan for a safe discharge.
[2019-12-17 16:40] LABS: Bedside Glucose 134 mg/dL (70-110)
[2019-12-17] MEDS: 0.9% Normal Saline 1,000 ML 125 ML IV (18:14)
[2019-12-17 20:57] VITALS: BP 159/79; PULSE 79; RESP 18; TEMP 36.7; O2SAT 94
[2019-12-17] MEDS: Glucerna Shake 120 ML LIQUID PO (21:07)
[2019-12-17] MEDS: Atorvastatin Calcium 40 MG Tablet PO (21:07)
[2019-12-17 21:16] LABS: Bedside Glucose 205 mg/dL (70-110)
[2019-12-17 22:15] VITALS: RESP 18
[2019-12-18] MEDS: oxyCODONE 5 MG Tablet PO ×4 (02:01→21:53)
[2019-12-18] MEDS: 0.9% Normal Saline 1,000 ML 125 ML IV ×3 (03:29→19:49)
[2019-12-18] MEDS: 0.9% Saline Lock 10 ML Syringe IV (03:29)
[2019-12-18 03:31] VITALS: BP 137/69; PULSE 70; RESP 18; TEMP 36.3; O2SAT 92
[2019-12-18] MEDS: Pregabalin 50 MG Capsule PO ×3 (05:47→21:08)
[2019-12-18] MEDS: cloNIDine HCl 0.2 MG Tablet PO ×3 (05:47→19:56)
[2019-12-18] MEDS: Heparin Injection (Vial) 5,000 UNIT/ML VIAL 5000 UNIT SC ×3 (05:47→21:08)
[2019-12-18 06:46] LABS: Bedside Glucose 191 mg/dL (70-110)
[2019-12-18 07:10] VITALS: O2SAT 93
--- NOTE | 2019-12-18 07:59 | PN_ITS ---
Patient Problems: Active and Suspected Problems (Last Reviewed 12/15/19 @ 18:[address] Tri Terry, DO) Pressure ulcer of left heel, stage 4 (Acute) Osteomyelitis (Acute) Reason for Visit: Follow-up on left heel pressure ulcer to bone/brittle DM/hypoglycemia Subjective: Patient was seen and examined. She denied any new complaints. Blood sugars are better. No acute events overnight. Objective: Physical exam: General: Alert, Oriented x3, Cooperative, No apparent distress, Well developed, Well nourished HEENT: Atraumatic, PERRLA, EOMI, EAC Clear Oral: Moist Mucosa, No Gingival or Mucosal Lesions/ Ulcerations Neck: Supple, No JVD, Negative Carotid Bruits, Negative Hepatojugular Reflux, No Nodes, No Nuchal Rigidity, Trachea Midline, Thyroid Normal Size and Texture Lungs: Clear to auscultation Cardiovascular: Regular rate, Regular Rhythm, Normal S1, Normal S2, No murmurs Abdomen: Bowel Sounds Present, Soft, Non Tender, Non-Distended, No Hepato- splenomegaly, No hernias noted Extremities: Edema - trace B LE Skin: No rashes, dressing over the left lower ankle/foot Musculoskeletal: No Tenderness to Palpation of Joints or Extremities, No Muscle Wasting Lymphatic: No Cervical, Supraclavicular, or Inguinal Adenopathy Neurological: Cranial nerves II-XII grossly intact, Deep Tendon Reflexes 2+/4 and Symmetrical, Neuro grossly intact, Motor Exam 5/5 strength throughout, - - decreased sensation B feet Psych/Mental Status: Appropriate, Flat Affect, Alert and oriented to time, place, person, mood and affect Vitals/I&O's: Vital Signs Temp Pulse Resp BP Pulse Ox 97.4 F L 70 18 137/69 H 93 12/18/19 03:31 12/18/19 03:31 12/18/19 03:31 12/18/19 03:31 12/18/19 07:10 Oxygen Delivery Method Room Air Weight: 63.3 kg Body Mass Index (BMI) 23.2 Finger Stick Blood Glucose 412 Intake and Output for Last 24 Hours 12/16/19 12/17/19 12/18/19 23:59 23:59 23:59 Intake Total 3287.25 / 3887.25 5172.75 / 5172.75 1550.25 / 1550.25 Output Total 1100 / 1500 3700 / 3700 1300 / 1300 Balance 2187.25 / 2387.25 1472.75 / 1472.75 250.25 / 250.25 Microbiology Past 72 Hours 12/15/19 17:23 Blood Culture (Wb) - Left Hand Blood Culture - Preliminary No growth in 48 hours. 12/15/19 17:13 Blood Culture (Wb) - Right Wrist Blood Culture - Preliminary No growth in 48 hours. Laboratory Results 12/17/19 08:24: Vancomycin Trough 17.7 H 12/17/19 11:27: POC Glucose 76 12/17/19 16:35: POC Glucose 134 H 12/17/19 21:10: POC Glucose 205 H 12/18/19 06:38: POC Glucose 191 H Current Medications Acetaminophen (Tylenol) 650 mg PO Q6H PRN PRN PRN Reason: Pain Score 1-10/Temp > 100.7 F Last Admin: 12/15/19 22:47 Dose: 650 mg Documented by: Al Hydroxide/Mg Hydroxide (Mylanta Ii) 30 ml PO Q6H PRN PRN PRN Reason: Gastric Burning Aspirin (Aspirin, Baby) 81 mg PO DAILY@0800 [facility] Last Admin: 12/17/19 07:51 Dose: 81 mg Documented by: Atorvastatin Calcium (Lipitor) 40 mg PO QHS [facility] Last Admin: 12/17/19 21:07 Dose: 40 mg Documented by: Clonidine (Catapres) 0.2 mg PO TID [facility] Last Admin: 12/18/19 05:47 Dose: 0.2 mg Documented by: Diltiazem HCl (Cardizem Cd) 180 mg PO DAILY [facility] Last Admin: 12/17/19 07:51 Dose: 180 mg Documented by: Heparin Sodium (Porcine) (Heparin Na) 5,000 unit SC Q8 [facility] Last Admin: 12/18/19 05:47 Dose: 5,000 unit Documented by: Hydralazine HCl (Apresoline Iv) 10 mg IV Q6H PRN PRN PRN Reason: SBP>160 Piperacillin Sod/Tazobactam (Sod 3.375 gm/ Sodium Chloride) 50 mls @ 12.5 mls/hr IV Q8 [facility] Last Admin: 12/18/19 05:47 Dose: 12.5 mls/hr Documented by: Vancomycin IV Pharmacy to Dose (1 ea/ Sodium Chloride) 500 mls @ 250 mls/hr IV X1 PRN; Protocol PRN Reason: Rx to Dose Sodium Chloride () 1,000 mls @ 125 mls/hr IV .Q8H [facility] Last Admin: 12/18/19 03:29 Dose: 125 mls/hr Documented by: Vancomycin HCl () 500 mg in 100 mls @ 100 mls/hr IV Q12H [facility] Last Infusion: 12/17/19 21:59 Dose: Infused Documented by: Sodium Chloride () 250 mls @ 15 mls/hr IV .[id number] PRN PRN Reason: Saline Flush Last Infusion: 12/18/19 05:47 Dose: 0 mls/hr Documented by: Sodium Chloride () 250 mls @ 15 mls/hr IV .[id number] PRN PRN Reason: Additional IVPB Infusion Ferric Sodium Gluconate Complex 250 mg/ Sodium Chloride 270 mls @ 135 mls/hr IV DAILY [facility] Stop: 12/20/19 11:50 Last Infusion: 12/17/19 14:52 Dose: Infused Documented by: Insulin Glargine (Lantus (Bkc)) 20 units SC QHS [facility] Last Admin: 12/17/19 21:10 Dose: 20 u Documented by: Insulin Human Lispro (Humalog Kwikpen (Bkc)) 0 unit SC TIDAC [facility]; Protocol Last Admin: 12/17/19 16:35 Dose: Not Given Documented by: Insulin Human Lispro (Humalog Kwikpen (Bkc)) 3 unit SC TIDCM [facility] Last Admin: 12/17/19 16:36 Dose: 3 u Documented by: Melatonin (Melatonin) 3 mg PO QHS PRN PRN PRN Reason: INSOMNIA Nutritional Formula (Lactose Free) (Glucerna Shake) 120 ml PO 4X/DAY [facility] Last Admin: 12/17/19 21:07 Dose: 120 ml Documented by: Ondansetron HCl (Zofran) 4 mg IV Q8H PRN PRN PRN Reason: NAUSEA/VOMITING Ondansetron HCl (Zofran Odt) 4 mg PO Q6H PRN PRN Reason: NAUSEA Oxycodone HCl (Oxyir) 5 mg PO Q4H PRN PRN PRN Reason: Pain Score 4-10/10 Last Admin: 12/18/19 02:01 Dose: 5 mg Documented by: Pantoprazole Sodium (Protonix) 40 mg PO DAILY [facility] Last Admin: 12/17/19 07:51 Dose: 40 mg Documented by: Polyethylene Glycol (Miralax) 17 gm PO DAILY PRN PRN PRN Reason: CONSTIPATION Pregabalin (Lyrica) 50 mg PO TID [facility] Last Admin: 12/18/19 05:47 Dose: 50 mg Documented by: Sodium Chloride () 10 - 40 ml IV UD PRN PRN Reason: SALINE FLUSH Last Admin: 12/18/19 03:29 Dose: 10 ml Documented by: STROKE Vital Signs/Narrative: Vital Signs Pulse Ox 12/18/19 07:10 93 Medical Necessity - Tobacco Use Smoking Status: Never smoker Tobacco Use: Non-smoker Assessment/Plan All Active Problems (Last Reviewed 12/15/19 @ 18:[address] Tri Terry, DO) Pressure ulcer of left heel, stage 4 (Acute) Osteomyelitis (Acute) Hyperkalemia (Acute) Acute kidney injury (Acute) 1. Left heel Streptococcus agalactiae/Serratia/possible Pseudomonas osteomyelitis of the posterior process of the calcaneus/infected diabetic ulcer Patient declined surgery. Medically management now. On IV Zosyn Podiatry and ID following. PICC line inserted on 12/17/19. ID plans on 2 weeks of IV zosyn 2. Hyperkalemia, resolved, continue to hold lisinopril, repeat blood work in a.m. Patient was recently admitted to the ICU with hyperkalemia. She would need to be off lisinopril going forward 3. Acute kidney injury, likely prerenal, from dehydration, slightly better Admitted with creatinine of 1.10, currently 1.11 Continue on IV fluids, repeat blood work in a.m. 4. Hypoglycemia in a brittle diabetic, resolved We will continue to monitor for future hypoglycemia Changes made to patient's insulin 5. 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 Hypoglycemia has been treated. Continue on current insulin regimen with further monitoring for hypoglycemia 6. Hyponatremia, likely hypovolemic, resolved Repeat blood work in a.m. 7. Anemia, iron deficiency, 7.9, FOBT pending On IV iron 8. Hypertension, controlled, continue on Cardizem, clonidine, hydralazine as needed 9. GERD, stable, on PPI 10. DVT PPx- Heparin SC Inpatient E&M: 18512 Subs Hosp L2
[2019-12-18 08:10] LABS: Absolute Lymphocyte Count 1.51 X10^3/uL (0.83-4.51); Absolute Neutrophil Count 2.6 X10^3/uL (2.0-7.7); Basophil# 0.03 X10^3/uL; Basophil% 0.6 % (0-1); Eosinophil# 0.23 X10^3/uL; Eosinophils% 4.9 % (0-5); Hematocrit 25.4 % (37-47); Hemoglobin 7.9 g/dL (12.0-15.0); Lymphocyte # 1.51 X10^3/ul (4.0); Lymphocyte % 31.9 % (19-41); Mean Corp Hgb Conc 31.1 g/dL (32-36); Mean Corpuscular Hgb 27.7 pg (27.0-32.0); Mean Corpuscular Volume 89.1 fL (81-99); Monocyte# 0.31 X10^3/uL; Monocyte% 6.5 % (0-10); NRBC Flagged by Analyzer 0 % (0-5); Neutrophil # 2.64 X10^3/uL (2.7-7.7); Neutrophil % 55.7 % (47-70); Platelet Count 251 K/mm3 (150-450); RBC Distribution Width CV 12.7 % (11.6-14.6); RBC Distribution Width SD 41.4 fl (35.1-43.9); Red Blood Count 2.85 M/mm3 (4.2-5.4); White Blood Count 4.7 K/mm3 (4.4-11.0)
[2019-12-18 08:20] VITALS: BP 134/67; PULSE 73; RESP 18; TEMP 36.8; O2SAT 97
[2019-12-18] MEDS: Pantoprazole Sodium 40 MG Tablet PO (08:23)
[2019-12-18] MEDS: Insulin Lispro 100 UNIT/ML INSULN.PEN SC ×5 (08:23→17:07)
[2019-12-18] MEDS: Aspirin 81 MG TAB.CHEW PO (08:23)
[2019-12-18] MEDS: dilTIAZem CD 180 MG Capsule PO (08:24)
[2019-12-18] MEDS: Glucerna Shake 120 ML LIQUID PO (08:24)
[2019-12-18 08:27] LABS: ALB/GLOB Ratio 0.6 RATIO (0.9-2.4); AST(SGOT) 14 U/L (15-37); Alanine Aminotransfer ALT/SGPT 13 U/L (13-56); Albumin, Serum 2.2 g/dL (3.2-5.0); Alkaline Phosphatase 161 U/L (45-117); Anion Gap 5 (5-15); BUN 24 mg/dL (7-18); BUN/Creat Ratio 21.6 RATIO (10-20); Calcium,Total 8.4 mg/dL (8.5-10.1); Chloride 108 mmol/L (98-107); Creatinine, Serum 1.11 mg/dL (0.55-1.02); EST Glomerular Filtration Rate 54 mL/min (>60); Est Glom Filt Rate - Afr Amer 65 mL/min (>60); Estimated Creatinine Clearance 50.32 ml/min; Globulin 3.6 g/dL (2.2-4.2); Glucose 173 mg/dL (74-106); Potassium 4.4 mmol/L (3.5-5.1); Protein, Total 5.8 g/dL (6.4-8.2); Sodium Level 141 mmol/L (136-145)
--- NOTE | 2019-12-18 09:54 | NURSING ---
wound photo: left anterior ankle
--- NOTE | 2019-12-18 09:55 | NURSING ---
wound photo: left heel
[2019-12-18] MEDS: Vancomycin IV 500 MG/100 ML BAG 100 MG IV (09:56)
[2019-12-18 11:20] LABS: Bedside Glucose 204 mg/dL (70-110)
--- NOTE | 2019-12-18 13:30 | CASEMGMT ---
RN SHIRA received script for IV ATB Zosyn q 8 hrs. RN CM called and updated [facility] regarding script for IV ATBs. RN SHIRA faxed ATB script and picc line information to [facility]. PRIYA SILVA called and updated [facility] regarding script for IV ATB and planned start of care for 2pm on 12/18. PRIYA SILVA faxed ATB Script to [facility]. PRIYA SILVA updated patient with planned start of care for tomorrow at 2pm with [facility] for next ATB dose. Patient to discharge on Saturday morning after 6am dose of ATB. Patient voiced understanding.
--- NOTE | 2019-12-18 13:47 | PN.ID_ITS ---
Patient Problems: Active and Suspected Problems (Last Reviewed 12/15/19 @ 18:[address] Tri Terry, DO) Pressure ulcer of left heel, stage 4 (Acute) Osteomyelitis (Acute) Subjective: Feeling better, d/c home tomorrow, no fever, no n/v/d. - Physical Exam Vitals/I&O's: Vital Signs Temp Pulse Resp BP Pulse Ox 98.3 F 73 18 134/67 H 97 12/18/19 08:20 12/18/19 08:20 12/18/19 08:20 12/18/19 08:20 12/18/19 08:20 Oxygen Delivery Method Room Air Weight: 63.3 kg Body Mass Index (BMI) 23.2 Finger Stick Blood Glucose 412 Intake and Output for Last 24 Hours 12/16/19 12/17/19 12/18/19 23:59 23:59 23:59 Intake Total 3287.25 / 3887.25 5172.75 / 5172.75 3421.00 / 3421.00 Output Total 1100 / 1500 3700 / 3700 1550 / 1550 Balance 2187.25 / 2387.25 1472.75 / 1472.75 1871.00 / 1871.00 General: Alert, Cooperative, No apparent distress Lungs: Clear to auscultation, Normal air movement Cardiovascular: Regular rate, Regular Rhythm Abdomen: Soft, Non Tender, Non-Distended Skin: Ulcer/ Wound - reviewed photo Microbiology Past 72 Hours 12/15/19 17:23 Blood Culture (Wb) - Left Hand Blood Culture - Preliminary No growth in 48 hours. 12/15/19 17:13 Blood Culture (Wb) - Right Wrist Blood Culture - Preliminary No growth in 48 hours. Laboratory Results 12/17/19 16:35: POC Glucose 134 H 12/17/19 21:10: POC Glucose 205 H 12/18/19 06:38: POC Glucose 191 H 12/18/19 07:47: WBC 4.7, RBC 2.85 L, Hgb 7.9 L, Hct 25.4 L, MCV 89.1, MCH 27.7, MCHC 31.1 L, RDW Std Deviation 41.4, RDW Coeff of Chris 12.7, Plt Count 251, MPV 10.0, Immature Gran % (Auto) 0.400, Neut % (Auto) 55.7, Lymph % (Auto) 31.9, [place] % (Auto) 6.5, Eos % (Auto) 4.9, Baso % (Auto) 0.6, Absolute Neuts (auto) 2.6, Absolute Lymphs (auto) 1.51, Nucleated RBC % 0 12/18/19 07:47: Sodium 141, Potassium 4.4, Chloride 108 H, Carbon Dioxide 28.0, Anion Gap 5, BUN 24 H, Creatinine 1.11 H, Estim Creat Clear Calc 50.32, Est GFR (MDRD) Af Amer 65, Est GFR (MDRD) Non-Af 54 L, BUN/Creatinine Ratio 21.6 H, Glucose 173 H, Calcium 8.4 L, Total Bilirubin 0.20, AST 14 L, ALT 13, Alkaline Phosphatase 161 H, Total Protein 5.8 L, Albumin 2.2 L, Globulin 3.6, Albumin/Globulin Ratio 0.6 L 12/18/19 11:14: POC Glucose 204 H Current Medications Acetaminophen (Tylenol) 650 mg PO Q6H PRN PRN PRN Reason: Pain Score 1-10/Temp > 100.7 F Last Admin: 12/15/19 22:47 Dose: 650 mg Documented by: Al Hydroxide/Mg Hydroxide (Mylanta Ii) 30 ml PO Q6H PRN PRN PRN Reason: Gastric Burning Aspirin (Aspirin, Baby) 81 mg PO DAILY@0800 [facility] Last Admin: 12/18/19 08:23 Dose: 81 mg Documented by: Atorvastatin Calcium (Lipitor) 40 mg PO QHS [facility] Last Admin: 12/17/19 21:07 Dose: 40 mg Documented by: Clonidine (Catapres) 0.2 mg PO TID [facility] Last Admin: 12/18/19 13:14 Dose: 0.2 mg Documented by: Diltiazem HCl (Cardizem Cd) 180 mg PO DAILY [facility] Last Admin: 12/18/19 08:24 Dose: 180 mg Documented by: Heparin Sodium (Porcine) (Heparin Na) 5,000 unit SC Q8 [facility] Last Admin: 12/18/19 13:14 Dose: 5,000 unit Documented by: Hydralazine HCl (Apresoline Iv) 10 mg IV Q6H PRN PRN PRN Reason: SBP>160 Piperacillin Sod/Tazobactam (Sod 3.375 gm/ Sodium Chloride) 50 mls @ 12.5 mls/hr IV Q8 [facility] Last Admin: 12/18/19 13:14 Dose: 12.5 mls/hr Documented by: Sodium Chloride () 1,000 mls @ 125 mls/hr IV .Q8H [facility] Last Admin: 12/18/19 12:12 Dose: 125 mls/hr Documented by: Sodium Chloride () 250 mls @ 15 mls/hr IV .[id number] PRN PRN Reason: Saline Flush Last Infusion: 12/18/19 13:14 Dose: 0 mls/hr Documented by: Sodium Chloride () 250 mls @ 15 mls/hr IV .[id number] PRN PRN Reason: Additional IVPB Infusion Ferric Sodium Gluconate Complex 250 mg/ Sodium Chloride 270 mls @ 135 mls/hr IV DAILY [facility] Stop: 12/20/19 11:50 Last Infusion: 12/18/19 12:40 Dose: Infused Documented by: Insulin Glargine (Lantus (Bkc)) 20 units SC QHS [facility] Last Admin: 12/17/19 21:10 Dose: 20 u Documented by: Insulin Human Lispro (Humalog Kwikpen (Bk)) 0 unit SC TIDAC [facility]; Protocol Last Admin: 12/18/19 11:16 Dose: 1 units Documented by: Insulin Human Lispro (Humalog Kwikpen (Bk)) 3 unit SC TIDCM [facility] Last Admin: 12/18/19 11:15 Dose: 3 u Documented by: Melatonin (Melatonin) 3 mg PO QHS PRN PRN PRN Reason: INSOMNIA Nutritional Formula (Lactose Free) (Glucerna Shake) 120 ml PO 4X/DAY [facility] Last Admin: 12/18/19 12:41 Dose: Not Given Documented by: Ondansetron HCl (Zofran) 4 mg IV Q8H PRN PRN PRN Reason: NAUSEA/VOMITING Ondansetron HCl (Zofran Odt) 4 mg PO Q6H PRN PRN Reason: NAUSEA Oxycodone HCl (Oxyir) 5 mg PO Q4H PRN PRN PRN Reason: Pain Score 4-10/10 Last Admin: 12/18/19 13:27 Dose: 5 mg Documented by: Pantoprazole Sodium (Protonix) 40 mg PO DAILY [facility] Last Admin: 12/18/19 08:23 Dose: 40 mg Documented by: Polyethylene Glycol (Miralax) 17 gm PO DAILY PRN PRN PRN Reason: CONSTIPATION Pregabalin (Lyrica) 50 mg PO TID [facility] Last Admin: 12/18/19 13:14 Dose: 50 mg Documented by: Sodium Chloride () 10 - 40 ml IV UD PRN PRN Reason: SALINE FLUSH Last Admin: 12/18/19 03:29 Dose: 10 ml Documented by: Medical Necessity - Tobacco Use Smoking Status: Never smoker Tobacco Use: Non-smoker Route of nutrition/ use of supplements: [] Nutritional Intake: [] IV Site: [] Howard Catheter: [] - Assessment/Plan Antibiotics: [] Assessment/Plan: [] Active and Suspected Problems (Last Reviewed 12/15/19 @ 18:[address] Tri Terry DO) Pressure ulcer of left heel, stage 4 (Acute) L heel osteo - wound cx with strep, serratia, and pseudomonas-like so far. Pt has decided against surgical debridement. Cont empiric zosyn. Plan at this point is for 6 weeks iv abx at discharge with zosyn, stop date 01/26/20 with weekly bmp, cbc, and esr. ID followup in 2 weeks. Wrote rx. Will follow, d/w counter caser
[2019-12-18 14:01] VITALS: BP 155/80; PULSE 80; RESP 18; TEMP 36.7; O2SAT 94
--- NOTE | 2019-12-18 14:09 | PN_ITS ---
Patient Problems: Active and Suspected Problems (Last Reviewed 12/15/19 @ 18:[address] Tri Terry DO) Pressure ulcer of left heel, stage 4 (Acute) Osteomyelitis (Acute) Subjective: Patient was seen and examined on chair bedside. Patient is more alert than previous visits. Patient relates occasional pain. Patient has anterior ankle and heel ulcer to the left foot with calcaneal osteomyelitis. Patient denies N/F/V/C/CP/SOB. Plan for DC tomorrow. - Physical Exam Vitals/I&O's: Vital Signs Temp Pulse Resp BP Pulse Ox 98.0 F 80 18 155/80 H 94 12/18/19 14:01 12/18/19 14:01 12/18/19 14:01 12/18/19 14:01 12/18/19 14:01 Oxygen Delivery Method Room Air Weight: 63.3 kg Body Mass Index (BMI) 23.2 Finger Stick Blood Glucose 412 Intake and Output for Last 24 Hours 12/16/19 12/17/19 12/18/19 23:59 23:59 23:59 Intake Total 3287.25 / 3887.25 5172.75 / 5172.75 3421.00 / 3421.00 Output Total 1100 / 1500 3700 / 3700 1550 / 1550 Balance 2187.25 / 2387.25 1472.75 / 1472.75 1871.00 / 1871.00 General: Alert, Oriented x3 HEENT: Atraumatic Extremities: Capillary Refill Less than 3 Seconds, - - Capillary Refill Less than 3 Seconds, Peripheral Pulses Normal, Tenderness - left heel Skin: Ulcer/ Wound - left heel measures 4.5x8x1.5cm. There is malodor has resolved. probes to bone. macerated edges-improved. Surrounding erythema-imp roved. No purulence. Fibrotic/necrotic base 60/40%. No active drainage. Left anteror ankle measures 4.5x2x9.3cm. Base is 50% granular and fibrotic, into level of sub q. minimal surround erythema Musculoskeletal: - - left heel pain on palpation, muscle strength intact to all muscle groups, heel offloaded on pillow and in offloading boot Neurological: - - proprioception diminished, sharp/dull diminished, vibratory diminished, light touch abnormal Psych/Mental Status: Normal Affect, Appropriate Microbiology Past 72 Hours 12/15/19 17:23 Blood Culture (Wb) - Left Hand Blood Culture - Preliminary No growth in 48 hours. 12/15/19 17:13 Blood Culture (Wb) - Right Wrist Blood Culture - Preliminary No growth in 48 hours. Laboratory Results 12/17/19 16:35: POC Glucose 134 H 12/17/19 21:10: POC Glucose 205 H 12/18/19 06:38: POC Glucose 191 H 12/18/19 07:47: WBC 4.7, RBC 2.85 L, Hgb 7.9 L, Hct 25.4 L, MCV 89.1, MCH 27.7, MCHC 31.1 L, RDW Std Deviation 41.4, RDW Coeff of Chris 12.7, Plt Count 251, MPV 10.0, Immature Gran % (Auto) 0.400, Neut % (Auto) 55.7, Lymph % (Auto) 31.9, [place] % (Auto) 6.5, Eos % (Auto) 4.9, Baso % (Auto) 0.6, Absolute Neuts (auto) 2.6, Absolute Lymphs (auto) 1.51, Nucleated RBC % 0 12/18/19 07:47: Sodium 141, Potassium 4.4, Chloride 108 H, Carbon Dioxide 28.0, Anion Gap 5, BUN 24 H, Creatinine 1.11 H, Estim Creat Clear Calc 50.32, Est GFR (MDRD) Af Amer 65, Est GFR (MDRD) Non-Af 54 L, BUN/Creatinine Ratio 21.6 H, Glucose 173 H, Calcium 8.4 L, Total Bilirubin 0.20, AST 14 L, ALT 13, Alkaline Phosphatase 161 H, Total Protein 5.8 L, Albumin 2.2 L, Globulin 3.6, Albumin/Globulin Ratio 0.6 L 12/18/19 11:14: POC Glucose 204 H Current Medications Acetaminophen (Tylenol) 650 mg PO Q6H PRN PRN PRN Reason: Pain Score 1-10/Temp > 100.7 F Last Admin: 12/15/19 22:47 Dose: 650 mg Documented by: Al Hydroxide/Mg Hydroxide (Mylanta Ii) 30 ml PO Q6H PRN PRN PRN Reason: Gastric Burning Aspirin (Aspirin, Baby) 81 mg PO DAILY@0800 GWEN Last Admin: 12/18/19 08:23 Dose: 81 mg Documented by: Atorvastatin Calcium (Lipitor) 40 mg PO QHS [facility], [facility] Last Admin: 12/17/19 21:07 Dose: 40 mg Documented by: Clonidine (Catapres) 0.2 mg PO TID [facility], [facility]1983 Last Admin: 12/18/19 13:14 Dose: 0.2 mg Documented by: Diltiazem HCl (Cardizem Cd) 180 mg PO DAILY [facility], [facility] Last Admin: 12/18/19 08:24 Dose: 180 mg Documented by: Heparin Sodium (Porcine) (Heparin Na) 5,000 unit SC Q8 [facility], [facility] Last Admin: 12/18/19 13:14 Dose: 5,000 unit Documented by: Hydralazine HCl (Apresoline Iv) 10 mg IV Q6H PRN PRN PRN Reason: SBP>160 Piperacillin Sod/Tazobactam (Sod 3.375 gm/ Sodium Chloride) 50 mls @ 12.5 mls/hr IV Q8 [facility], [facility]1983 Last Admin: 12/18/19 13:14 Dose: 12.5 mls/hr Documented by: Sodium Chloride () 1,000 mls @ 125 mls/hr IV .Q8H GWEN Last Admin: 12/18/19 12:12 Dose: 125 mls/hr Documented by: Sodium Chloride () 250 mls @ 15 mls/hr IV .[id number] PRN PRN Reason: Saline Flush Last Infusion: 12/18/19 13:14 Dose: 0 mls/hr Documented by: Sodium Chloride () 250 mls @ 15 mls/hr IV .[id number] PRN PRN Reason: Additional IVPB Infusion Ferric Sodium Gluconate Complex 250 mg/ Sodium Chloride 270 mls @ 135 mls/hr IV DAILY [facility] Stop: 12/20/19 11:50 Last Infusion: 12/18/19 12:40 Dose: Infused Documented by: Insulin Glargine (Lantus (Bkc)) 20 units SC QHS [facility], [facility] Last Admin: 12/17/19 21:10 Dose: 20 u Documented by: Insulin Human Lispro (Humalog Kwikpen (Bk)) 0 unit SC TIDAC [facility], [facility]; Protocol Last Admin: 12/18/19 11:16 Dose: 1 units Documented by: Insulin Human Lispro (Humalog Kwikpen (Bk)) 3 unit SC TIDCM [facility] Last Admin: 12/18/19 11:15 Dose: 3 u Documented by: Melatonin (Melatonin) 3 mg PO QHS PRN PRN PRN Reason: INSOMNIA Nutritional Formula (Lactose Free) (Glucerna Shake) 120 ml PO 4X/DAY [facility] Last Admin: 12/18/19 12:41 Dose: Not Given Documented by: Ondansetron HCl (Zofran) 4 mg IV Q8H PRN PRN PRN Reason: NAUSEA/VOMITING Ondansetron HCl (Zofran Odt) 4 mg PO Q6H PRN PRN Reason: NAUSEA Oxycodone HCl (Oxyir) 5 mg PO Q4H PRN PRN PRN Reason: Pain Score 4-10/10 Last Admin: 12/18/19 13:27 Dose: 5 mg Documented by: Pantoprazole Sodium (Protonix) 40 mg PO DAILY [facility] Last Admin: 12/18/19 08:23 Dose: 40 mg Documented by: Polyethylene Glycol (Miralax) 17 gm PO DAILY PRN PRN PRN Reason: CONSTIPATION Pregabalin (Lyrica) 50 mg PO TID [facility] Last Admin: 12/18/19 13:14 Dose: 50 mg Documented by: Sodium Chloride () 10 - 40 ml IV UD PRN PRN Reason: SALINE FLUSH Last Admin: 12/18/19 03:29 Dose: 10 ml Documented by: Medical Necessity - Tobacco Use Smoking Status: Never smoker Tobacco Use: Non-smoker Assessment/Plan All Active Problems (Last Reviewed 12/15/19 @ 18:[address] Tri Terry, DO) Pressure ulcer of left heel, stage 4 (Acute) Osteomyelitis (Acute) Hyperkalemia (Acute) Acute kidney injury (Acute) left heel pressure ulcer to bone left anterior ankle ulcer to sub q edema left worse than right lower extremity DM2 with hyperglycemia and neuropathy Patient seen and examined in office Patient has had this wound for 6 weeks. Follow culture results Office swab cultures growing strept agalactiae and gram negative rick XR reviewed showing possible OM changes to calcaneus MRI showing mild posterior calcaneal osteomyelitic changes No leukocytosis elevated ESR and CRP Contlinue IV antibiotics per ID ID consult Will need PICC line and fdc IV abx Strict NWB to left heel. Please offload while in bed especially with offloading boot. Elevate the limb. Patient has offloaded surgical shoe she can wear when up but her time on her feet should be limited. Continue wound care. Apply hydrogel to anterior ankle wound and silver alginate to heel wound and cover with good padding with 4x4, abd, kerlix and offload heel Upon further discussion patient has decided to try a course of IV antibiotic to heal the calcaneal osteomyelitis instead of surgical intervention. Patient states that if this fails she will consider surgical intervention. She doesn't wish to proceed with any surgery at this time. We will continue wound care. Social work please help in obtaining wound care supplies as well as setting up PICC line supplies for [facility] Podiatry will continue to follow Plan to [place] tomorrow. Follow up with Dr Brown in office in one week at [place]. If any questions please contact.
--- NOTE | 2019-12-18 15:45 | CASEMGMT ---
PRIYA SILVA updated by nursing that patient was told by litigation services manager that [facility] to supply patient with wound care supplies. PRIYA SILVA called [facility] to see if they would be able to help with wound care. [facility] states they can only be contracted for IV ATB. PRIYA SILVA updated the patient and wound nurse. Wound nurse wrote out script for wound supplies for litigation services manager to sign. Per wound nurse patient can get supplies filled at drug store. Patient states significant other can come to hospital for wound care teaching. PRIYA SILVA updated nursing regarding teaching significant other wound care. PRIYA SILVA updated [facility] and [facility] to wound care plan. PRIYA SILVA called and updated Dr. Brown, litigation services manager and she is agreeable to plan for wound care teaching here at hospital. Dr. Brown signed script for wound supplies. PRIYA SILVA updated patient regard discharge plans and is agreeable and appreciative. CM to continue to follow patient and plan for a safe discharge. Green sheet placed on chart.
[2019-12-18 16:36] LABS: Bedside Glucose 105 mg/dL (70-110)
[2019-12-18 19:52] VITALS: BP 166/93; PULSE 77; RESP 16; TEMP 36.6; O2SAT 99
[2019-12-18] MEDS: Atorvastatin Calcium 40 MG Tablet PO (19:56)
[2019-12-18 21:05] VITALS: BP 154/92
[2019-12-18 22:00] LABS: Bedside Glucose 150 mg/dL (70-110)
[2019-12-19 02:02] VITALS: BP 149/83; PULSE 77; RESP 16; TEMP 36.7; O2SAT 92
[2019-12-19] MEDS: 0.9% Normal Saline 1,000 ML 125 ML IV (03:14)
[2019-12-19] MEDS: Pregabalin 50 MG Capsule PO (05:04)
[2019-12-19] MEDS: Heparin Injection (Vial) 5,000 UNIT/ML VIAL 5000 UNIT SC (05:04)
[2019-12-19] MEDS: cloNIDine HCl 0.2 MG Tablet PO (05:04)
[2019-12-19] MEDS: Insulin Lispro 100 UNIT/ML INSULN.PEN SC ×2 (06:32→09:03)
[2019-12-19 06:46] LABS: Bedside Glucose 166 mg/dL (70-110)
[2019-12-19 07:13] LABS: Absolute Lymphocyte Count 0.92 X10^3/uL (0.83-4.51); Absolute Neutrophil Count 3.2 X10^3/uL (2.0-7.7); Basophil# 0.01 X10^3/uL; Basophil% 0.2 % (0-1); Eosinophil# 0.28 X10^3/uL; Eosinophils% 5.9 % (0-5); Hematocrit 26.1 % (37-47); Hemoglobin 8.2 g/dL (12.0-15.0); Lymphocyte # 0.92 X10^3/ul (4.0); Lymphocyte % 19.5 % (19-41); Mean Corp Hgb Conc 31.4 g/dL (32-36); Mean Corpuscular Hgb 27.6 pg (27.0-32.0); Mean Corpuscular Volume 87.9 fL (81-99); Mean Platelet Vol. 9.9 fl (6.2-12.0); Monocyte# 0.28 X10^3/uL; Monocyte% 5.9 % (0-10); NRBC Flagged by Analyzer 0 % (0-5); Neutrophil # 3.21 X10^3/uL (2.7-7.7); Neutrophil % 68.1 % (47-70); Platelet Count 242 K/mm3 (150-450); RBC Distribution Width CV 12.7 % (11.6-14.6); Red Blood Count 2.97 M/mm3 (4.2-5.4); White Blood Count 4.7 K/mm3 (4.4-11.0)
[2019-12-19 07:36] VITALS: BP 174/97; PULSE 92; RESP 18; TEMP 37; O2SAT 84
[2019-12-19 07:39] LABS: ALB/GLOB Ratio 0.6 RATIO (0.9-2.4); AST(SGOT) 19 U/L (15-37); Alanine Aminotransfer ALT/SGPT 14 U/L (13-56); Albumin, Serum 2.1 g/dL (3.2-5.0); Alkaline Phosphatase 173 U/L (45-117); Anion Gap 4 (5-15); BUN 17 mg/dL (7-18); Calcium,Total 8.6 mg/dL (8.5-10.1); Chloride 110 mmol/L (98-107); Creatinine, Serum 0.95 mg/dL (0.55-1.02); EST Glomerular Filtration Rate 65 mL/min (>60); Est Glom Filt Rate - Afr Amer 78 mL/min (>60); Estimated Creatinine Clearance 58.79 ml/min; Globulin 3.6 g/dL (2.2-4.2); Glucose 161 mg/dL (74-106); Protein, Total 5.7 g/dL (6.4-8.2); Sodium Level 141 mmol/L (136-145)
--- NOTE | 2019-12-19 07:49 | NURSING ---
PT O2 SAT 84% ON RA. LUNGS CLEAR. PT DENIES SOB/DYSPNEA. HAD PT SIT UPRIGHT & DEEP BREATHE. P.O. CHECKED ON 2 DIFFERENT P.O. MACHINES.
[2019-12-19] MEDS: oxyCODONE 5 MG Tablet PO (07:53)
[2019-12-19 08:38] VITALS: BP 166/80
--- NOTE | 2019-12-19 08:39 | DCINST_ITS ---
- Discharge Diagnoses Current Active Problems: Current Active and Chronic Problems (Last Reviewed 12/15/19 @ 18:[address] Tri Terry, DO) Pressure ulcer of left heel, stage 4 (Acute) Osteomyelitis (Acute) Reason(s) for Visit for Discharge Instructions: Left heel osteomyelitis You will use the following diet at home:: Calorie/Carbohydrate Controlled (specify 1200, 1400, etc) - 1800, Cardiac Your food should be the consistency of: Regular Your liquids should be the consistency of: Regular/Thin Discharge Activity: Return to Normal Activity, Use Walker, - - minimal activity May shower in (days): 0 - keep foot and dressing clean, dry, intact Weight Bearing Status: No weight bearing - left foot, minimal to toes if necessary Call your doctor if your incision/area has: Sudden Increased Bleeding, Increased Pain/ Swelling, Increased Redness, Foul Smelling Discharge Call your doctor if you observe: Fever of 101 or Higher, Coldness, Increased Pain, Change in Color, Inability to urinate, Shortness of breath, Dizziness, Fainting spells, Chest pain, Increased palpitations (irregular heartbeat), Uncontrolled pain Change Dressing in (Days):: 1 - Daily dresing changes please. Apply hydrogel to anterior ankle wound and silver alginate to heel wound and cover with good padding with 4x4, abd, kerlix and offload heel Cleanse incision/area with: Soap & Water Additional Instructions: Continue on IV antibiotics as scheduled. Stop date for the antibiotics is 01/26/20. You would need to do weekly labs as prescribed by infectious disease. Continue with wound care and precautions as prescribed by podiatry. Allergies/Adverse Reactions: Allergies metformin Adverse Reaction (Verified 12/15/19 16:29) Diarrhea Medications to take at Discharge Clonidine HCl [Catapres] 0.2 mg PO TID 12/17/18 Diltiazem CD [Cardizem CD] 180 mg PO DAILY 12/17/18 Insulin Glargine [Lantus SoloStar Pen] 20 units SUBCUT QHS 12/17/18 Insulin Lispro [Humalog KwikPen] See Protocol SQ TIDCM 12/17/18 Magnesium Oxide [Mag-Ox 400] 400 mg PO BID 12/17/18 Ondansetron [Zofran Odt] 4 mg PO Q6H PRN 12/17/18 polyethylene glycol 3350 17 gram/dose oral powder 17 g PO DAILY PRN PRN 02/16/19 pregabalin 50 mg capsule 50 mg PO TID 02/17/19 traMADol [Ultram] 50 mg PO Q8H 05/04/19 Aspirin [Aspirin, Baby] 81 mg PO DAILY@0800 12/15/19 Atorvastatin Calcium [Lipitor] 40 mg PO QHS 12/15/19 Glucerna Shake 237 ml PO BID 12/15/19 Pantoprazole Sodium [Protonix] 40 mg PO DAILY 12/15/19 Piperacil/Tazobactam [Zosyn] 3.375 gm IV Q8 #114 vial 12/18/19 Glucerna Shake 120 ml PO 4X/DAY 30 Days #120 liquid 12/19/19 Insulin Lispro [Humalog KwikPen] 3 unit SUBCUT TIDCM insuln.pen 12/19/19 The following prescriptions were given: Glucerna Shake 120 ml PO 4X/DAY 30 Days #120 liquid Transmission Status: Pending to [id number] Piperacil/Tazobactam [Zosyn] 3.375 gm IV Q8 #114 vial Prescription Printed Primary Care Physician: Dennys Serrano MD [Primary Care Provider] - Please follow up with your Primary Care Physician in: within 2 weeks for better blood sugar control Test Results: Test results from this visit will be discussed in further detail at your follow- up appointment, if applicable. Please Follow Up With: Dr America Brown DPM When: 1 week Please Follow Up With: Cisco Guzman MD When: in 2 weeks Proposed Discharge Date: 12/19/19
--- NOTE | 2019-12-19 08:45 | DS.PCM_ITS ---
Discharge Date and Diagnosis Date of Admission: 12/15/19 Date of Discharge: 12/19/19 - Primary Discharge Diagnosis Acute Problems: Active Problems (Last Reviewed 12/15/19 @ 18:[address] Tri Terry DO) Left heel Streptococcus agalactiae/Serratia/Pseudomonas osteomyelitis of the p osterior process of the calcaneus/infected diabetic ulcer Hyperkalemia Acute kidney injury Hypoglycemia Hypovolemic hyponatremia Anemia, iron deficiency - Secondary Discharge Diagnosis Chronic Problems: Chronic Problems (Last Reviewed 12/15/19 @ 18:[address] Tri Terry DO) Essential hypertension (Chronic) Migraine without aura (Chronic) HLD (hyperlipidemia) (Chronic) Post-concussion syndrome (Chronic) History of orthostatic hypotension (Chronic) Type II diabetes mellitus (Chronic) Hospital Course and Treatment Imaging Results: Clinical Impression(s) from Imaging Studies Foot X-Ray 12/15/19 17:37 IMPRESSION: Soft tissue ulceration of the plantar surface of the heel. No definitive evidence for acute osteomyelitis however there is focal subchondral lucency and early infection cannot be excluded. Three-phase bone scan or MRI would be helpful for further assessment Electronically Signed: Manjit Saleem MD at 18:17 EDT , Service support , Lower Extremity MRI 12/15/19 19:00 IMPRESSION: 1. Mild osteomyelitis of the posterior process of the calcaneus with an overlying ulcer Electronically Signed: Shaquille Mckenna MD at 21:01 EDT , Service support , ID Podiatry Operations: None Procedures: None Summary of Care Provided: The patient is a 59 year old F with past medical history of brittle type II DM, hypertension, hyperlipidemia, who comes in from the podiatry office with a chronic left heel wound. Patient had office wound debridement and bone was visible and there was concern for possible osteomyelitis. Patient was admitted to the Medr floor. Started on broad-spectrum - IV Zosyn and vancomycin. Wound cultures from outpatient office grew Streptococcus agalactiae/Serratia/Pseudomonas. Repeat blood cultures here were negative. Podiatry followed with patient in the hospital. Patient declined to have surgery of the left foot. She opted for medical management with IV antibiotics. Infectious disease was following patient in the hospital. Patient had a PICC line placed. Home health was set up with IV antibiotics. She will follow-up with with podiatry in 1 week. She would also follow-up with infectious disease in 2 weeks. During her hospital stay, patient had her lisinopril held on account of hyperkalemia. She had a slow uptake in her blood pressure. Her clonidine was increased to 0.3 3 times daily at discharge. She will follow-up with a primary care doctor within 1 week to have blood pressure and blood work done to follow- up on potassium. Subjective: On the day of discharge, patient was seen and examined. Denied any new complaints. Denied fever or chills. Objective: Physical exam: General: Alert, Oriented x3, Cooperative, No apparent distress, Well developed, Well nourished HEENT: Atraumatic, PERRLA, EOMI, EAC Clear Oral: Moist Mucosa, No Gingival or Mucosal Lesions/ Ulcerations Neck: Supple, No JVD, Negative Carotid Bruits, Negative Hepatojugular Reflux, No Nodes, No Nuchal Rigidity, Trachea Midline, Thyroid Normal Size and Texture Lungs: Clear to auscultation Cardiovascular: Regular rate, Regular Rhythm, Normal S1, Normal S2, No murmurs Abdomen: Bowel Sounds Present, Soft, Non Tender, Non-Distended, No Hepato- splenomegaly, No hernias noted Extremities: Edema - trace B LE Skin: No rashes, dressing over the left lower ankle/foot Musculoskeletal: No Tenderness to Palpation of Joints or Extremities, No Muscle Wasting Lymphatic: No Cervical, Supraclavicular, or Inguinal Adenopathy Neurological: Cranial nerves II-XII grossly intact, Deep Tendon Reflexes 2+/4 and Symmetrical, Neuro grossly intact, Motor Exam 5/5 strength throughout, - - decreased sensation B feet Psych/Mental Status: Appropriate, Flat Affect, Alert and oriented to time, place, person, mood and affect - Physical Exam Vitals/I&O's: Vital Signs Temp Pulse Resp BP Pulse Ox 98.6 F 92 18 166/80 H 84 12/19/19 07:36 12/19/19 07:36 12/19/19 07:36 12/19/19 08:38 12/19/19 07:36 Oxygen Delivery Method Room Air Weight: 63.3 kg Body Mass Index (BMI) 23.2 Finger Stick Blood Glucose 412 Intake and Output for Last 24 Hours 12/17/19 12/18/19 12/19/19 23:59 23:59 23:59 Intake Total 5172.75 / 5172.75 4839.33 / 5089.33 1787.58 / 1787.58 Output Total 3700 / 3700 2700 / 4550 2950 / 2950 Balance 1472.75 / 1472.75 2139.33 / 539.33 -1162.42 / -1162.42 Microbiology Past 72 Hours 12/15/19 17:23 Blood Culture (Wb) - Left Hand Blood Culture - Preliminary No growth in 48 hours. 12/15/19 17:13 Blood Culture (Wb) - Right Wrist Blood Culture - Preliminary No growth in 48 hours. Laboratory Results 12/18/19 11:14: POC Glucose 204 H 12/18/19 16:29: POC Glucose 105 12/18/19 21:54: POC Glucose 150 H 12/19/19 06:32: POC Glucose 166 H 12/19/19 06:53: WBC 4.7, RBC 2.97 L, Hgb 8.2 L, Hct 26.1 L, MCV 87.9, MCH 27.6, MCHC 31.4 L, RDW Std Deviation 41.0, RDW Coeff of Chris 12.7, Plt Count 242, MPV 9.9, Immature Gran % (Auto) 0.400, Neut % (Auto) 68.1, Lymph % (Auto) 19.5, [place] % (Auto) 5.9, Eos % (Auto) 5.9 H, Baso % (Auto) 0.2, Absolute Neuts (auto) 3.2, Absolute Lymphs (auto) 0.92, Nucleated RBC % 0 12/19/19 06:53: Sodium 141, Potassium 4.0, Chloride 110 H, Carbon Dioxide 27.0, Anion Gap 4 L, BUN 17, Creatinine 0.95, Estim Creat Clear Calc 58.79, Est GFR (MDRD) Af Amer 78, Est GFR (MDRD) Non-Af 65, BUN/Creatinine Ratio 18.0, Glucose 161 H, Calcium 8.6, Total Bilirubin 0.30, AST 19, ALT 14, Alkaline Phosphatase 173 H, Total Protein 5.7 L, Albumin 2.1 L, Globulin 3.6, Albumin/Globulin Ratio 0.6 L Current Medications Acetaminophen (Tylenol) 650 mg PO Q6H PRN PRN PRN Reason: Pain Score 1-10/Temp > 100.7 F Last Admin: 12/15/19 22:47 Dose: 650 mg Documented by: Al Hydroxide/Mg Hydroxide (Mylanta Ii) 30 ml PO Q6H PRN PRN PRN Reason: Gastric Burning Aspirin (Aspirin, Baby) 81 mg PO DAILY@0800 [facility] Last Admin: 12/18/19 08:23 Dose: 81 mg Documented by: Atorvastatin Calcium (Lipitor) 40 mg PO QHS [facility] Last Admin: 12/18/19 19:56 Dose: 40 mg Documented by: Clonidine (Catapres) 0.2 mg PO TID [facility] Last Admin: 12/19/19 05:04 Dose: 0.2 mg Documented by: Diltiazem HCl (Cardizem Cd) 180 mg PO DAILY [facility] Last Admin: 12/18/19 08:24 Dose: 180 mg Documented by: Heparin Sodium (Porcine) (Heparin Na) 5,000 unit SC Q8 [facility] Last Admin: 12/19/19 05:04 Dose: 5,000 unit Documented by: Hydralazine HCl (Apresoline Iv) 10 mg IV Q6H PRN PRN PRN Reason: SBP>160 Piperacillin Sod/Tazobactam (Sod 3.375 gm/ Sodium Chloride) 50 mls @ 12.5 mls/hr IV Q8 [facility] Last Admin: 12/19/19 05:03 Dose: 12.5 mls/hr Documented by: Sodium Chloride () 1,000 mls @ 125 mls/hr IV .Q8H [facility] Last Admin: 12/19/19 03:14 Dose: 125 mls/hr Documented by: Sodium Chloride () 250 mls @ 15 mls/hr IV .[id number] PRN PRN Reason: Saline Flush Last Infusion: 12/19/19 05:03 Dose: 0 mls/hr Documented by: Sodium Chloride () 250 mls @ 15 mls/hr IV .[id number] PRN PRN Reason: Additional IVPB Infusion Ferric Sodium Gluconate Complex 250 mg/ Sodium Chloride 270 mls @ 135 mls/hr IV DAILY [facility] Stop: 12/20/19 11:50 Last Infusion: 12/18/19 12:40 Dose: Infused Documented by: Insulin Glargine (Lantus (Bk)) 20 units SC QHS [facility] Last Admin: 12/18/19 21:54 Dose: 20 u Documented by: Insulin Human Lispro (Humalog Kwikpen ([facility])) 0 unit SC TIDAC [facility]; Protocol Last Admin: 12/19/19 06:32 Dose: 1 units Documented by: Insulin Human Lispro (Humalog Kwikpen ([facility])) 3 unit SC TIDCM [facility] Last Admin: 12/18/19 17:07 Dose: 3 u Documented by: Melatonin (Melatonin) 3 mg PO QHS PRN PRN PRN Reason: INSOMNIA Nutritional Formula (Lactose Free) (Glucerna Shake) 120 ml PO 4X/DAY [facility] Last Admin: 12/18/19 19:52 Dose: Not Given Documented by: Ondansetron HCl (Zofran) 4 mg IV Q8H PRN PRN PRN Reason: NAUSEA/VOMITING Ondansetron HCl (Zofran Odt) 4 mg PO Q6H PRN PRN Reason: NAUSEA Oxycodone HCl (Oxyir) 5 mg PO Q4H PRN PRN PRN Reason: Pain Score 4-10/10 Last Admin: 12/19/19 07:53 Dose: 5 mg Documented by: Pantoprazole Sodium (Protonix) 40 mg PO DAILY [facility] Last Admin: 12/18/19 08:23 Dose: 40 mg Documented by: Polyethylene Glycol (Miralax) 17 gm PO DAILY PRN PRN PRN Reason: CONSTIPATION Pregabalin (Lyrica) 50 mg PO TID [facility] Last Admin: 12/19/19 05:04 Dose: 50 mg Documented by: Sodium Chloride () 10 - 40 ml IV UD PRN PRN Reason: SALINE FLUSH Last Admin: 12/18/19 03:29 Dose: 10 ml Documented by: Discharge Diet: Low fat/ Low Cholesterol, 2000 mg Sodium Diet, Carb Control Diet Discharge Activity: Return to Normal Activity, Use Walker, - - minimal activity May shower in (days): 0 - keep foot and dressing clean, dry, intact Weight Bearing Status: No weight bearing - left foot, minimal to toes if necessary Call your doctor if your incision/area has: Sudden Increased Bleeding, Increased Pain/ Swelling, Increased Redness, Foul Smelling Discharge Call your doctor if you observe: Fever of 101 or Higher, Coldness, Increased Pain, Change in Color, Inability to urinate, Shortness of breath, Dizziness, Fainting spells, Chest pain, Increased palpitations (irregular heartbeat), Uncontrolled pain Change Dressing in (Days):: 1 - Daily dresing changes please. Apply hydrogel to anterior ankle wound and silver alginate to heel wound and cover with good padding with 4x4, abd, kerlix and offload heel Cleanse incision/area with: Soap & Water Home Medications: Medications to take at Discharge Diltiazem CD [Cardizem CD] 180 mg PO DAILY 12/17/18 Insulin Glargine [Lantus SoloStar Pen] 20 units SUBCUT QHS 12/17/18 Insulin Lispro [Humalog KwikPen] See Protocol SQ TIDCM 12/17/18 Magnesium Oxide [Mag-Ox 400] 400 mg PO BID 12/17/18 Ondansetron [Zofran Odt] 4 mg PO Q6H PRN 12/17/18 polyethylene glycol 3350 17 gram/dose oral powder 17 g PO DAILY PRN PRN 02/16/19 pregabalin 50 mg capsule 50 mg PO TID 02/17/19 traMADol [Ultram] 50 mg PO Q8H 05/04/19 Aspirin [Aspirin, Baby] 81 mg PO DAILY@0800 12/15/19 Atorvastatin Calcium [Lipitor] 40 mg PO QHS 12/15/19 Glucerna Shake 237 ml PO BID 12/15/19 Pantoprazole Sodium [Protonix] 40 mg PO DAILY 12/15/19 Piperacil/Tazobactam [Zosyn] 3.375 gm IV Q8 #114 vial 12/18/19 Clonidine HCl 0.3 mg PO TID 30 Days #90 tab 12/19/19 Glucerna Shake 120 ml PO 4X/DAY 30 Days #120 liquid 12/19/19 Insulin Lispro [Humalog KwikPen] 3 unit SUBCUT TIDCM insuln.pen 12/19/19 Following Prescriptions Were Given to Patient: Clonidine HCl 0.3 mg PO TID 30 Days #90 tab Transmission Status: Received by [facility] [id number] Glucerna Shake 120 ml PO 4X/DAY 30 Days #120 liquid Transmission Status: Received by [facility] [id number] Piperacil/Tazobactam [Zosyn] 3.375 gm IV Q8 #114 vial Prescription Printed Primary Care Physician: Dennys Serrano MD [Primary Care Provider] - Please follow up with your Primary Care Physician in: within 2 weeks for better blood sugar control Please Follow Up With: Dr America rBown DPUsha When: 1 week Please Follow Up With: Cisco Guzman MD When: in 2 weeks Disposition: Home with Home Health Minutes spent on discharge:: 45 Patient Condition:: Stable Medical Necessity - Tobacco Use Smoking Status: Never smoker Tobacco Use: Non-smoker Meaningful Use Info Meaningful Use Diagnoses (Choose all that apply): None applicable Inpatient E&M: 70361 [facility]
[2019-12-19 08:57] VITALS: RESP 18; O2SAT 95
[2019-12-19] MEDS: dilTIAZem CD 180 MG Capsule PO (08:58)
[2019-12-19] MEDS: Aspirin 81 MG TAB.CHEW PO (08:59)
[2019-12-19] MEDS: Pantoprazole Sodium 40 MG Tablet PO (08:59)
[2019-12-19 11:54] VITALS: BP 160/90; PULSE 97; RESP 16; TEMP 36.9; O2SAT 97
[2019-12-19] MEDS: cloNIDine HCl 0.1 MG Tablet PO (11:56)
[2019-12-19 12:15] VITALS: BP 160/90; PULSE 97; RESP 16; TEMP 36.9; O2SAT 97
[2019-12-19 16:51] LABS: Bedside Glucose 79 mg/dL (70-110)
--- NOTE | 2019-12-21 12:09 | CASEMGMT ---
PRIYA SILVA DC PHONE CALL DC DATE: 12/19/2019 DC DISPOSITION: Home with [facility] DC DIAGNOSIS: L heel strept/pseudomonas osteo. LACE/STRATA: 03/03 F/U APPTS MADE PRIOR TO DC: no, weekend dc PRESCRIPTIONS ACQUIRED BY PT: yes Intro role of CM to patient who was dc'd with [facility]. They had opened the case on saturday, and were coming again today @ 12:30. No questions noted, and patient is aware she can refer questions to [facility] nurse. Dre RODRIGUEZN RN ACM
== END 2019-12-19 12:15 | disposition home health service (06) | DRG 344 ==
LOC: ED 17:17 → MS3 18:36
PROVIDERS: Admitting Provider Internal Medicine; Emergency Provider Emergency Medicine; PCP Family Medicine; Visit Provider Internal Medicine
DX: E11.622 Type 2 diabetes mellitus with other skin ulcer (principal); E11.69 Type 2 diabetes mellitus with other specified complication; L89.624 Pressure ulcer of left heel, stage 4; B95.1 Streptococcus, group B, as the cause of diseases classified elsewhere; B96.5 Pseudomonas (aeruginosa) (mallei) (pseudomallei) as the cause of diseases classified elsewhere; E87.5 Hyperkalemia; N17.9 Acute kidney failure, unspecified; E86.1 Hypovolemia; L97.329 Non-pressure chronic ulcer of left ankle with unspecified severity; E11.649 Type 2 diabetes mellitus with hypoglycemia without coma; E11.42 Type 2 diabetes mellitus with diabetic polyneuropathy; E87.1 Hypo-osmolality and hyponatremia; M86.8X7 Other osteomyelitis, ankle and foot; D50.9 Iron deficiency anemia, unspecified; E11.65 Type 2 diabetes mellitus with hyperglycemia; I10 Essential (primary) hypertension; E78.5 Hyperlipidemia, unspecified; G43.709 Chronic migraine without aura, not intractable, without status migrainosus; F07.81 Postconcussional syndrome; G89.4 Chronic pain syndrome; K21.9 Gastro-esophageal reflux disease without esophagitis; Z79.4 Long term (current) use of insulin; Z80.7 Family history of other malignant neoplasms of lymphoid, hematopoietic and related tissues; Z82.0 Family history of epilepsy and other diseases of the nervous system; Z82.49 Family history of ischemic heart disease and other diseases of the circulatory system; Z82.5 Family history of asthma and other chronic lower respiratory diseases; Z83.3 Family history of diabetes mellitus; Z90.49 Acquired absence of other specified parts of digestive tract
CPT/HCPCS: 36415; 36569; 73630; 73718; 80053; 80202; 82728; 82947; 82962; 83036; 83540; 83550; 83605; 83735; 85014; 85018; 85025; 85045; 85652; 86140; 87040; 87070; 87075; 87077; 87186; 87205; 93923; 97116; 97162; 97166; 97530; 97802; 99251; 99285; J7030; J7050; A4216; G0463; J2916

== ENCOUNTER → 2019-12-15 16:43 | Outpatient (CLI) | payer MEDICAID, SELFPAY ==
[2019-12-15 16:27] VITALS: BMI 26.6
== END ==
PROVIDERS: Visit Provider Podiatrist Foot & Ankle Surgery
DX: L89.620 Pressure ulcer of left heel, unstageable (principal)
CPT/HCPCS: 87070; 87205

== ENCOUNTER 2019-12-21 22:31 | Emergency (ER) | payer MEDICAID, SELFPAY ==
[2019-12-21 22:32] VITALS: BP 174/90; PULSE 90; RESP 18; TEMP 36.4; O2SAT 98; BMI 26.6
--- NOTE | 2019-12-21 22:44 | ED.VIS.GEN ---
History of Present Illness Chief Complaint: Other, Pain/Inj Informant: Patient Onset: Today Context: Gradual Onset Timing: Continuous Current Severity: Mild Maximum Severity: Mild Narrative: Patient is a 59-year-old female with history of orthostatic hypotension and his diabetes who was recently hospitalized for osteomyelitis of the left heel. She underwent operative debridement. She had a PICC line placed and is on Zosyn every 8 hours. Today, they were unable to flush her PICC line. She denies any significant pain. She was just concerned because she is unable to get her antibiotic therapy. Patient is otherwise been in her normal state of health. She states her blood sugars been running in the 100s. She denies any significant pain. Prior similar symptoms: No Recent Illness/Hospitalization: Yes Past Medical History - Allergies and Home Meds Allergies/Adverse Reactions: Allergies metformin Adverse Reaction (Verified 12/21/19 22:33) Diarrhea Primary Care Physician: Dennys Serrano MD [Primary Care Provider] - Prior records reviewed: Yes Past Medical History: - - Diabetes, orthostatic hypotension Surgical History: cholecystectomy, - - TMJ surgery Smoking Status: Never smoker - Family History Maternal Family History: Family History (Last Reviewed 12/15/19 @ 18:[address] Tri Terry DO) Mother Hypertension Father Cancer Emphysema of lung Grandmother Diabetes Family History: Reports: - - Recently passed, August 2017 secondary to complications from Alzheimer's disease Paternal Family History: Family History (Last Reviewed 12/15/19 @ 18:[address] Tri Terry DO) Mother Hypertension Father Cancer Emphysema of lung Grandmother Diabetes Family History: Reports: - - Emphysema, lymphoma Review of Systems General: Denies: Chills, Fever, Sweats Eyes: Denies: Visual changes - bilaterally, Diplopia ENT: Denies: Rhinorrhea, Sore throat Cardiovascular: Denies: Chest pain, Palpitations Respiratory: Denies: Dyspnea, Cough, Dyspnea on exertion Gastrointestinal: Denies: Abdominal pain, Nausea, Vomiting, Diarrhea, Melena, Hematochezia Genitourinary: Denies: Dysuria, Hematuria, Frequency Musculoskeletal: Denies: Back pain, Extremity Pain Skin: Denies: Rash, Wounds Neurological: Denies: Headache, Weakness, Numbness Physical Exam Vital Signs/Narrative: Vital Signs Temp Pulse Resp BP Pulse Ox 12/21/19 22:32 97.6 F L 90 18 174/90 H 98 Inital Vital Signs reviewed: Yes General: Well nourished, Well developed, No Acute Distress Head: Normocephalic, Atraumatic Eyes: Perrl, EOMI ENT: Moist mucous membranes, No rhinorrhea Neck: Supple, Nontender Cardiovascular: Regular rate, Regular rhythm, No murmurs Respiratory: No distress, CTA bilaterally, Chest nontender Abdomen: Soft, Nontender, Nondistended, Normal bowel sounds Back: Nontender, Normal Inspection Extremities: No edema, Tenderness Skin: Normal color, No rash Neurological: Alert, Oriented x3, Cranial nerves II-XII grossly intact, Normal Strength, Normal Sensation Psychological: Normal affect, Normal Mood Diagnostic/Tx/Re-eval - Medical Decision Making Patient presents with PICC line would not flush. Plan will be for Cathflo see if the PICC line can be flushed. She is comfortable with this plan. Impression 1. PICC line malfunction ED Disposition - Plan for ED Patient: Instructions: ED PICC Line Care Referrals: Dennys Serrano MD [Primary Care Provider] -
[2019-12-21] MEDS: Alteplase 2 MG/2 ML Vial IV (22:59)
--- NOTE | 2019-12-21 23:36 | ED.RN ---
Harper RN, Nursing Drugless Physician, placed Cathflo into PICC using stopcock method. After 30 minutes, PICC was able to flush with pts arm raised 45 degrees. More patient education given to FM and patient. All questions answered, no further concerns. PT tolerated the procedure well. WC to lobby for discharge.
== END 2019-12-21 23:49 | disposition home or self-care (01) ==
LOC: ED 23:38
PROVIDERS: Emergency Provider Emergency Medicine; PCP Family Medicine
DX: T82.514A Breakdown (mechanical) of infusion catheter, initial encounter (principal); Y83.9 Surgical procedure, unspecified as the cause of abnormal reaction of the patient, or of later complication, without mention of misadventure at the time of the procedure; Y92.9 Unspecified place or not applicable; E11.69 Type 2 diabetes mellitus with other specified complication; Z82.49 Family history of ischemic heart disease and other diseases of the circulatory system; Z90.49 Acquired absence of other specified parts of digestive tract
CPT/HCPCS: 80048; 85027; 85652; 96374; 99282; J2997; A4216

== ENCOUNTER 2019-12-28 15:39 | Outpatient (RCR) | payer MEDICAID, SELFPAY ==
[2019-12-21 17:15] LABS: Hematocrit 26.4 % (37-47); Hemoglobin 8.5 g/dL (12.0-15.0); Mean Corp Hgb Conc 32.2 g/dL (32-36); Mean Corpuscular Hgb 28.1 pg (27.0-32.0); Mean Corpuscular Volume 87.1 fL (81-99); Mean Platelet Vol. 10.1 fl (6.2-12.0); Platelet Count 259 K/mm3 (150-450); RBC Distribution Width CV 12.9 % (11.6-14.6); RBC Distribution Width SD 41.1 fl (35.1-43.9); Red Blood Count 3.03 M/mm3 (4.2-5.4); White Blood Count 5.6 K/mm3 (4.4-11.0)
[2019-12-21 17:16] LABS: Anion Gap 3 (5-15); BUN 9 mg/dL (7-18); BUN/Creat Ratio 9.8 RATIO (10-20); Chloride 107 mmol/L (98-107); Creatinine, Serum 0.92 mg/dL (0.55-1.02); EST Glomerular Filtration Rate 67 mL/min (>60); Est Glom Filt Rate - Afr Amer 81 mL/min (>60); Glucose 157 mg/dL (74-106); Potassium 3.4 mmol/L (3.5-5.1); Sodium Level 142 mmol/L (136-145)
[2019-12-21 17:27] LABS: Erythrocyte Sedimentation Rate 88 mm/hr (0-30)
[2019-12-28 16:51] LABS: Absolute Lymphocyte Count 1.71 X10^3/uL (0.83-4.51); Absolute Neutrophil Count 3.3 X10^3/uL (2.0-7.7); Basophil# 0.03 X10^3/uL; Basophil% 0.5 % (0-1); Eosinophil# 0.55 X10^3/uL; Eosinophils% 9.4 % (0-5); Hematocrit 27.5 % (37-47); Hemoglobin 8.4 g/dL (12.0-15.0); Lymphocyte # 1.71 X10^3/ul (4.0); Lymphocyte % 29.2 % (19-41); Mean Corp Hgb Conc 30.5 g/dL (32-36); Mean Corpuscular Hgb 27.1 pg (27.0-32.0); Mean Corpuscular Volume 88.7 fL (81-99); Mean Platelet Vol. 10.1 fl (6.2-12.0); Monocyte# 0.29 X10^3/uL; Monocyte% 4.9 % (0-10); NRBC Flagged by Analyzer 0 % (0-5); Neutrophil # 3.27 X10^3/uL (2.7-7.7); Neutrophil % 55.8 % (47-70); Platelet Count 224 K/mm3 (150-450); RBC Distribution Width CV 14.1 % (11.6-14.6); RBC Distribution Width SD 45.3 fl (35.1-43.9); White Blood Count 5.9 K/mm3 (4.4-11.0)
[2019-12-28 17:10] LABS: Erythrocyte Sedimentation Rate 59 mm/hr (0-30)
[2019-12-28 17:15] LABS: Vitamin B12 438 pg/mL (211-911)
[2019-12-28 17:16] LABS: Anion Gap 4 (5-15); BUN 9 mg/dL (7-18); BUN/Creat Ratio 8.6 RATIO (10-20); Calcium,Total 8.9 mg/dL (8.5-10.1); Chloride 107 mmol/L (98-107); Creatinine, Serum 1.05 mg/dL (0.55-1.02); EST Glomerular Filtration Rate 57 mL/min (>60); Est Glom Filt Rate - Afr Amer 69 mL/min (>60); Ferritin 134 ng/mL (8-252); Glucose 92 mg/dL (74-106); Iron Binding Capacity,Total 261 ug/dL (250-450); Potassium 3.7 mmol/L (3.5-5.1); Sodium Level 141 mmol/L (136-145)
[2019-12-30 14:56] LABS: Iron 45 ug/dL (50-170)
== END 2019-12-30 23:59 ==
LOC: HHLAB 15:39
PROVIDERS: PCP Family Medicine; Referring Provider Internal Medicine Infectious Disease; Visit Provider Internal Medicine Infectious Disease
DX: Z45.2 Encounter for adjustment and management of vascular access device (principal); L89.624 Pressure ulcer of left heel, stage 4
CPT/HCPCS: 80048; 82607; 82728; 82746; 83540; 83550; 83735; 85025; 85027; 85652

== ENCOUNTER → 2020-01-22 13:16 | Outpatient (CLI) | payer MEDICAID, SELFPAY ==
[2020-01-22] MEDS: Alteplase 2 MG/2 ML Vial IV ×4 (14:00→15:30)
== END ==
PROVIDERS: PCP Family Medicine; Referring Provider Internal Medicine Infectious Disease; Visit Provider Internal Medicine Infectious Disease
DX: Z45.2 Encounter for adjustment and management of vascular access device (principal)
CPT/HCPCS: 36593; J2997; A4216

== ENCOUNTER 2020-01-25 11:47 | Outpatient (RCR) | payer MEDICAID, SELFPAY ==
[2019-12-30 15:59] VITALS: BMI 26.6
[2020-01-04 16:35] LABS: Hematocrit 28.2 % (37-47); Hemoglobin 8.6 g/dL (12.0-15.0); Mean Corp Hgb Conc 30.5 g/dL (32-36); Mean Corpuscular Hgb 27.5 pg (27.0-32.0); Mean Corpuscular Volume 90.1 fL (81-99); Mean Platelet Vol. 10.5 fl (6.2-12.0); Platelet Count 177 K/mm3 (150-450); RBC Distribution Width CV 14.8 % (11.6-14.6); Red Blood Count 3.13 M/mm3 (4.2-5.4); White Blood Count 4.7 K/mm3 (4.4-11.0)
[2020-01-04 16:36] LABS: Iron 70 ug/dL (50-170); Iron Binding Capacity,Total 256 ug/dL (250-450)
[2020-01-04 16:38] LABS: Anion Gap 4 (5-15); BUN 16 mg/dL (7-18); BUN/Creat Ratio 13.8 RATIO (10-20); Calcium,Total 9.3 mg/dL (8.5-10.1); Chloride 108 mmol/L (98-107); Creatinine, Serum 1.16 mg/dL (0.55-1.02); EST Glomerular Filtration Rate 51 mL/min (>60); Est Glom Filt Rate - Afr Amer 62 mL/min (>60); Glucose 47 mg/dL (74-106); Potassium 4.1 mmol/L (3.5-5.1); Sodium Level 142 mmol/L (136-145)
[2020-01-04 16:47] LABS: Erythrocyte Sedimentation Rate 32 mm/hr (0-30)
[2020-01-11 13:59] LABS: Anion Gap 3 (5-15); BUN 18 mg/dL (7-18); BUN/Creat Ratio 14.3 RATIO (10-20); Calcium,Total 8.9 mg/dL (8.5-10.1); Chloride 105 mmol/L (98-107); Creatinine, Serum 1.26 mg/dL (0.55-1.02); EST Glomerular Filtration Rate 47 mL/min (>60); Est Glom Filt Rate - Afr Amer 56 mL/min (>60); Glucose 275 mg/dL (74-106); Potassium 4.3 mmol/L (3.5-5.1); Sodium Level 139 mmol/L (136-145)
[2020-01-11 14:06] LABS: Hematocrit 27.8 % (37-47); Hemoglobin 8.7 g/dL (12.0-15.0); Mean Corp Hgb Conc 31.3 g/dL (32-36); Mean Corpuscular Hgb 27.8 pg (27.0-32.0); Mean Corpuscular Volume 88.8 fL (81-99); Mean Platelet Vol. 10.6 fl (6.2-12.0); Platelet Count 149 K/mm3 (150-450); RBC Distribution Width CV 15.1 % (11.6-14.6); RBC Distribution Width SD 48.8 fl (35.1-43.9); Red Blood Count 3.13 M/mm3 (4.2-5.4); White Blood Count 3.2 K/mm3 (4.4-11.0)
[2020-01-11 14:07] LABS: Erythrocyte Sedimentation Rate 53 mm/hr (0-30)
[2020-01-18 13:57] LABS: Hemoglobin 9.5 g/dL (12.0-15.0); Mean Corp Hgb Conc 31.7 g/dL (32-36); Mean Corpuscular Hgb 27.5 pg (27.0-32.0); Mean Platelet Vol. 10.4 fl (6.2-12.0); Platelet Count 174 K/mm3 (150-450); RBC Distribution Width CV 14.8 % (11.6-14.6); RBC Distribution Width SD 46.9 fl (35.1-43.9); Red Blood Count 3.45 M/mm3 (4.2-5.4); White Blood Count 4.6 K/mm3 (4.4-11.0)
[2020-01-18 14:04] LABS: Erythrocyte Sedimentation Rate 68 mm/hr (0-30)
[2020-01-18 14:23] LABS: Anion Gap 5 (5-15); BUN 21 mg/dL (7-18); BUN/Creat Ratio 17.9 RATIO (10-20); Calcium,Total 9.1 mg/dL (8.5-10.1); Chloride 100 mmol/L (98-107); Creatinine, Serum 1.17 mg/dL (0.55-1.02); EST Glomerular Filtration Rate 51 mL/min (>60); Est Glom Filt Rate - Afr Amer 61 mL/min (>60); Glucose 305 mg/dL (74-106); Potassium 4.4 mmol/L (3.5-5.1); Sodium Level 137 mmol/L (136-145)
[2020-01-25 12:47] LABS: Hemoglobin 9.5 g/dL (12.0-15.0); Mean Corp Hgb Conc 31.7 g/dL (32-36); Mean Corpuscular Hgb 27.1 pg (27.0-32.0); Mean Corpuscular Volume 85.5 fL (81-99); Mean Platelet Vol. 10.5 fl (6.2-12.0); Platelet Count 207 K/mm3 (150-450); RBC Distribution Width CV 14.6 % (11.6-14.6); RBC Distribution Width SD 46.1 fl (35.1-43.9); Red Blood Count 3.51 M/mm3 (4.2-5.4); White Blood Count 5.5 K/mm3 (4.4-11.0)
[2020-01-25 12:58] LABS: Anion Gap 3 (5-15); BUN 12 mg/dL (7-18); BUN/Creat Ratio 10.2 RATIO (10-20); Calcium,Total 9.1 mg/dL (8.5-10.1); Chloride 103 mmol/L (98-107); Creatinine, Serum 1.18 mg/dL (0.55-1.02); EST Glomerular Filtration Rate 50 mL/min (>60); Est Glom Filt Rate - Afr Amer 61 mL/min (>60); Glucose 292 mg/dL (74-106); Sodium Level 138 mmol/L (136-145)
[2020-01-25 12:59] LABS: Erythrocyte Sedimentation Rate 50 mm/hr (0-30)
== END 2020-01-25 18:00 | disposition home or self-care (01) ==
LOC: HHLAB 11:47
PROVIDERS: PCP Family Medicine; Referring Provider Internal Medicine Infectious Disease; Visit Provider Internal Medicine Infectious Disease
DX: Z45.2 Encounter for adjustment and management of vascular access device (principal); L89.624 Pressure ulcer of left heel, stage 4
CPT/HCPCS: 80048; 83540; 83550; 85027; 85652

== ENCOUNTER 2020-03-22 10:00 | Outpatient (RCR) | payer MEDICAID, SELFPAY ==
[2019-12-30 15:59] VITALS: BMI 26.6
[2020-03-15 09:40] VITALS: BP 112/73; PULSE 80; RESP 18; TEMP 37.1; BMI 23.3
--- NOTE | 2020-03-16 20:25 | PCM.WC.HP ---
(1) Ulcer of left ankle Status: Acute Qualifiers: Non-pressure ulcer stage: with fat layer exposed Qualified Code(s): L97.322 - Non-pressure chronic ulcer of left ankle with fat layer exposed Code(s): L97.329 - Non-pressure chronic ulcer of left ankle with unspecified severity (2) Osteomyelitis Status: Ruled-out Qualifiers: Osteomyelitis type: other chronic Osteomyelitis location: foot Laterality: left Qualified Code(s): M86.672 - Other chronic osteomyelitis, left ankle and foot Code(s): M86.9 - Osteomyelitis, unspecified (3) Type II diabetes mellitus Status: Chronic Qualifiers: Diabetes mellitus senior living insulin use: with senior living use Diabetes mellitus complication status: with skin complications Diabetes mellitus complication detail: with foot ulcer Qualified Code(s): E11.621 - Type 2 diabetes mellitus with foot ulcer; L97.509 - Non-pressure chronic ulcer of other part of unspecified foot with unspecified severity; Z79.4 - group home (current) use of insulin Code(s): E11.9 - Type 2 diabetes mellitus without complications (4) Ulcer of left heel Status: Chronic Qualifiers: Non-pressure ulcer stage: with necrosis of bone Qualified Code(s): L97.424 - Non-pressure chronic ulcer of left heel and midfoot with necrosis of bone Code(s): L97.429 - Non-pressure chronic ulcer of left heel and midfoot with unspecified severity History of Present Illness Date of Service: 03/15/20 Chief Complaint: left heel ulcer. left ankle ulcer History of Wound: In October 2019, patient had rubbing in shoes while shopping which led to a blishter that developed into an ulceration. Patient was then seen in my office for wound care. Patient then became infected and was admitted to the hospital. Patient was noted to have OM on MRI. Patient wanted to avoid surgery so a senior living course of appropriate IV antibiotics was the treatmetn chosen. Patient was also noted to have hyperglycemia and has worked with hospitalist and PCP to try to get better control. Blood sugar levels remain elevated. Patient also had LEAS obtained in the hospital which suggested patient had the proper blood flow to allow healing. Patient has since finished senior living course of antibiotics. Patient has since been seen on a weekly basis in office with progression and regression of wound noted over the weeks. Patient has tried various dressing options including wet to dry and santyl. She also has an offloading surgical shoe and offloading boot to relieve pressure. Patient care is henceforth being carried out at the wound care center. Past Medical History Past Medical History: Chronic Problems (Last Reviewed 12/15/19 @ 18:[address] Tri Terry DO) Pressure ulcer of left heel, stage 4 (Chronic) Ulcer of left heel (Chronic) Essential hypertension (Chronic) Migraine without aura (Chronic) HLD (hyperlipidemia) (Chronic) Post-concussion syndrome (Chronic) History of orthostatic hypotension (Chronic) Type II diabetes mellitus (Chronic) Surgical History: cholecystectomy, - Allergies/Adverse Reactions: Allergies metformin Adverse Reaction (Verified 03/15/20 10:05) Diarrhea Home Medications: Ambulatory Orders Medication Instructions Recorded Diltiazem CD [Cardizem CD] 180 mg PO DAILY 12/17/18 Insulin Glargine [Lantus SoloStar 20 units SUBCUT QHS 12/17/18 Pen] Insulin Lispro [Humalog KwikPen] See Protocol SQ TIDCM 12/17/18 Magnesium Oxide [Mag-Ox 400] 400 mg PO BID 12/17/18 Ondansetron [Zofran Odt] 4 mg PO Q6H PRN 12/17/18 polyethylene glycol 3350 17 17 g PO DAILY PRN PRN 02/16/19 gram/dose oral powder pregabalin 50 mg capsule 50 mg PO TID 02/17/19 traMADol [Ultram] 50 mg PO Q8H 05/04/19 Aspirin [Aspirin, Baby] 81 mg PO DAILY@0800 12/15/19 Atorvastatin Calcium [Lipitor] 40 mg PO QHS 12/15/19 Glucerna Shake 237 ml PO BID 12/15/19 Pantoprazole Sodium [Protonix] 40 mg PO DAILY 12/15/19 Piperacil/Tazobactam [Zosyn] 3.375 gm IV Q8 #114 vial 12/18/19 Clonidine HCl 0.3 mg PO TID 30 Days #90 tab 12/19/19 Insulin Lispro [Humalog KwikPen] 3 unit SUBCUT TIDCM insuln.pen 12/19/19 - Family History Maternal Family History: Family History (Last Reviewed 12/15/19 @ 18:[address] Tri Terry DO) Mother Hypertension Father Cancer Emphysema of lung Grandmother Diabetes - - Recently passed, August 2017 secondary to complications from Alzheimer's disease Paternal Family History: Family History (Last Reviewed 12/15/19 @ 18:[address] Tri Terry DO) Mother Hypertension Father Cancer Emphysema of lung Grandmother Diabetes - - Emphysema, lymphoma Smoking Status: Never smoker Review of Systems Constitutional: Denies: Chills, Fever Cardiovascular: Reports: Edema - bilateral lower extremity. Denies: Chest Pain Respiratory: Denies: Cough, Shortness of Breath Musculoskeletal: Reports: Foot Pain - left Skin: Reports: Wounds - heel and anterior ankle Neurological: Reports: Numbness, Tingling Subjective: Patient seen and examined with boyfriend present. Patient denies any new complaints - Physical Exam Vital Signs Temp Pulse Resp BP 98.7 F 80 18 112/73 03/15/20 09:40 03/15/20 09:40 03/15/20 09:40 03/15/20 09:40 General: Alert, Oriented x3 HEENT: Atraumatic Extremities: No clubbing, No cyanosis, Capillary Refill Less than 3 Seconds, No Calf Tenderness, Edema - bilateral lower extremities, left worse than righ, Peripheral Pulses Normal - 2/4 D and PT, Tenderness - heel Skin: Ulcer/ Wound - left heel with moderate amounts of fibrous tissue buildup, no surrounding maceration, no malodor, no periwound erythema or callus, mild serosanginous drainage into fat. Left anterior ankle mild erythema, no edema, into sub q, granular base Wound Measurements and Assessment WC - Nurse 1 - General Ulcer Measurement Start: 03/15/20 09:40 Freq: Status: Active Protocol: Activity Type Activity Date Activity User E-Sign Co-Sign Detail Recorded Client Recorded Date Recorded By Document 03/15/20 09:40 DL [id number] 03/15/20 09:57 DL 03/15/20 09:40 Wound Center Nurse 1 [Ulcer Assessment] #2 L Ant Ankle -Current Size (cm) - Length 1 -Current Size (cm) - Width 2.4 -Current Size (cm) - Depth 0.1 -Total Square Cm 2.4 -Photo Taken Yes -Exudate Amt None Present -Wound Margin Indistinct, Non -Visible -Granulation Amt Small (1-33%) -Granulation Quality [place] -Necrosis Amt Small (1-33%) -Necrotic Tissue Type Adherent Slough -Structure Exposed N/A -Texture (Bren-wound Skin Appearance) Scarring -Moisture (Bren-wound Skin Appearance Dry/Scaly ) -Color (Bren-wound Skin Appearance) Erythema,Rubor -Temperature (Bren-wound Skin No Abnormality Appearance) (Pt Warm) -Tenderness on Palpation (Bren-wound No Skin Appearance) -Ulcer Cleansing Wound Cleanser -Foul Odor after Cleansing No -Anesthetic Used 4% Lidocaine Solution #1 L Heel -Current Size (cm) - Length 3.8 -Current Size (cm) - Width 4 -Current Size (cm) - Depth 0.3 -Total Square Cm 15.2 -Photo Taken Yes -Exudate Amt Small -Exudate Type Serosanguineous -Wound Margin Distinct, Outline Attached -Granulation Amt Small (1-33%) -Granulation Quality [place] -Necrosis Amt Large (67-100%) -Necrotic Tissue Type Adherent Slough -Texture (Bren-wound Skin Appearance) Localized Edema ,Scarring -Moisture (Bren-wound Skin Appearance No Abnormality ) -Color (Bren-wound Skin Appearance) Rubor -Temperature (Bren-wound Skin No Abnormality Appearance) (Pt Warm) -Tenderness on Palpation (Bren-wound No Skin Appearance) -Ulcer Cleansing Wound Cleanser -Foul Odor after Cleansing No -Anesthetic Used 4% Lidocaine Solution WC - Nurse 2 - General Ulcer CM Notes Start: 03/15/20 09:40 Freq: Status: Active Protocol: Activity Type Activity Date Activity User E-Sign Co-Sign Detail Recorded Client Recorded Date Recorded By Document 03/15/20 10:19 JAUN [id number] 03/15/20 10:30 JAUN 03/15/20 10:19 Wound Center Nurse 2 [Procedure/Treatment] #2 L Ant Ankle -Time 10:19 -Correct Patient Yes -Correct Side, Site, Position Yes -Correct Procedure Yes -Procedure Performed Yes -Type of Procedure Debridement -Clinical Debridement Subcutaneous -Tissue Removed Subcutaneous -Post Debridement (cm) - Length 1 -Post Debridement (cm) - Width 2 -Post Debridement (cm) - Depth 0.1 -Total Square (Post) (cm) 2 -Area of Debridement (cm) - Length 1 -Area of Debridement (cm) - Width 2 -Total Square (Area) (cm) 2 -Tunneling No -Undermining/Tunneling No -Circular Undermining No -Wound/Ulcer Outcome Not Healed -Ulcer Cleansing Rinsed/ Irrigated with Saline -Foul Odor after Cleansing No -Bioengineered Tissue No -Bleeding Controlled with Pressure -Offloading Yes -Type of Offloading Surgical Shoe -Treatment Response Procedure Tolerated Well -Debridement - Subq, 1st 20sq cm Yes #1 L Heel -Time 10:20 -Correct Patient Yes -Correct Side, Site, Position Yes -Correct Procedure Yes -Procedure Performed Yes -Type of Procedure Debridement -Clinical Debridement Subcutaneous -Tissue Removed Subcutaneous -Post Debridement (cm) - Length 3.5 -Post Debridement (cm) - Width 4.2 -Post Debridement (cm) - Depth 0.4 -Total Square (Post) (cm) 14.70 -Area of Debridement (cm) - Length 3.5 -Area of Debridement (cm) - Width 4.2 -Total Square (Area) (cm) 14.70 -Tunneling No -Undermining/Tunneling No -Circular Undermining No -Wound/Ulcer Outcome Not Healed -Ulcer Cleansing Rinsed/ Irrigated with Saline -Foul Odor after Cleansing No -Bioengineered Tissue No -Bleeding Controlled with Pressure -Offloading Yes -Type of Offloading Surgical Shoe -Treatment Response Procedure Tolerated Well -Debridement - Subq, 1st 20sq cm No [See Physician Procedure note for Specifics] Pain Scale: 0-10 Numeric [Pain] -Is Patient Pain Free? Yes WC - Nurse 3 - General Ulcer D/C NN Start: 03/15/20 09:40 Freq: Status: Active Protocol: Activity Type Activity Date Activity User E-Sign Co-Sign Detail Recorded Client Recorded Date Recorded By Document 03/15/20 10:42 DL [id number] 03/15/20 10:46 DL 03/15/20 10:42 Wound Care Nurse 3 [Wound Dressing] #2 L Ant Ankle -Ulcer Cleansing Wound Cleanser -Foul Odor after Cleansing No -Primary Dressing Applied C Hydrogel ($) -Primary Dressing Covered/Secured Dry Gauze,Dry with Gauze & Roll Gauze,Secured with Tape #1 L Heel -Ulcer Cleansing Wound Cleanser -Foul Odor after Cleansing No -Other Dressing moist gauze -Primary Dressing Covered/Secured Dry Gauze & with Roll Gauze, Secured with Tape -Other Covering padding to heel [Compression Applied] Left -Compression Wrap Surepress ($) [Post Procedure Tolerated] -Treatment Response Procedure Tolerated Well Pain Scale: 0-10 Numeric [Pain] -Is Patient Pain Free? Yes WC - Visit Discharge [Visit Discharge Information] -Discharge Condition Stable -Ambulatory Status Walker -Transportation Private Auto -Accompanied by -Notes: Pt to start Dakins to L Heel when available Musculoskeletal: Muscle Wasting, Tenderness - left heel to palpation+ Neurological: - - decreased light touch sensation Psych/Mental Status: Normal Affect, Appropriate, Alert and oriented to time, place, person, mood and affect Debridement Note Post-Debridement Measurements/Treatment WC - Nurse 2 - General Ulcer CM Notes Start: 03/15/20 09:40 Freq: Status: Active Protocol: Activity Type Activity Date Activity User E-Sign Co-Sign Detail Recorded Client Recorded Date Recorded By Document 03/15/20 10:19 JAUN [id number] 03/15/20 10:30 JAUN 03/15/20 10:19 Wound Center Nurse 2 #2 L Ant Ankle -Time 10:19 -Correct Patient Yes -Correct Side, Site, Position Yes -Correct Procedure Yes -Procedure Performed Yes -Type of Procedure Debridement -Clinical Debridement Subcutaneous -Tissue Removed Subcutaneous -Post Debridement (cm) - Length 1 -Post Debridement (cm) - Width 2 -Post Debridement (cm) - Depth 0.1 -Total Square (Post) (cm) 2 -Area of Debridement (cm) - Length 1 -Area of Debridement (cm) - Width 2 -Total Square (Area) (cm) 2 -Tunneling No -Undermining/Tunneling No -Circular Undermining No -Wound/Ulcer Outcome Not Healed -Ulcer Cleansing Rinsed/ Irrigated with Saline -Foul Odor after Cleansing No -Bioengineered Tissue No -Bleeding Controlled with Pressure -Offloading Yes -Type of Offloading Surgical Shoe -Treatment Response Procedure Tolerated Well -Debridement - Subq, 1st 20sq cm Yes #1 L Heel -Time 10:20 -Correct Patient Yes -Correct Side, Site, Position Yes -Correct Procedure Yes -Procedure Performed Yes -Type of Procedure Debridement -Clinical Debridement Subcutaneous -Tissue Removed Subcutaneous -Post Debridement (cm) - Length 3.5 -Post Debridement (cm) - Width 4.2 -Post Debridement (cm) - Depth 0.4 -Total Square (Post) (cm) 14.70 -Area of Debridement (cm) - Length 3.5 -Area of Debridement (cm) - Width 4.2 -Total Square (Area) (cm) 14.70 -Tunneling No -Undermining/Tunneling No -Circular Undermining No -Wound/Ulcer Outcome Not Healed -Ulcer Cleansing Rinsed/ Irrigated with Saline -Foul Odor after Cleansing No -Bioengineered Tissue No -Bleeding Controlled with Pressure -Offloading Yes -Type of Offloading Surgical Shoe -Treatment Response Procedure Tolerated Well -Debridement - Subq, 1st 20sq cm No Pain Scale: 0-10 Numeric Is Patient Pain Free? Yes - Nurse 3 - General Ulcer D/C NN Start: 03/15/20 09:40 Freq: Status: Active Protocol: Activity Type Activity Date Activity User E-Sign Co-Sign Detail Recorded Client Recorded Date Recorded By Document 03/15/20 10:42 DL [id number] 03/15/20 10:46 DL 03/15/20 10:42 Wound Care Nurse 3 #2 L Ant Ankle -Ulcer Cleansing Wound Cleanser -Foul Odor after Cleansing No -Primary Dressing Applied C Hydrogel ($) -Primary Dressing Covered/Secured with Dry Gauze,Dry Gauze & Roll Gauze,Secured with Tape #1 L Heel -Ulcer Cleansing Wound Cleanser -Foul Odor after Cleansing No -Other Dressing moist gauze -Primary Dressing Covered/Secured with Dry Gauze & Roll Gauze, Secured with Tape -Other Covering padding to heel Left -Compression Wrap Surepress ($) Treatment Response Procedure Tolerated Well Pain Scale: 0-10 Numeric Is Patient Pain Free? Yes WC - Visit Discharge Discharge Condition Stable Ambulatory Status Walker Transportation Private Auto Accompanied by Notes: Pt to start Dakins to L Heel when available Wound debrided: heel Laterality: Left Wound Grade/Stage: jeffrey 3 Type of Debridement: Excisional debridement Anesthesia Used: 4% Lidocaine Solution Depth: in the subcutaneous layer Percentage of wound debrided: 100 Instrument Used: - - tissue nippers Tissue Removed: sough, fibrotic, devitalized, biofilm tissue Severity: Fat Layer Exposed Amount of bleeding with debridement: Mild Bleeding Controlled with: Pressure Patient tolerated procedure well - Additional Wound Wound debrided: anterior ankle Laterality: Left Wound Grade/Stage: jeffrey 2 Type of Debridement: Excisional debridement Anesthesia Used: 4% Lidocaine Solution Depth: in the subcutaneous layer Percentage of wound debrided: 100 Instrument Used: 3mm curette Tissue Removed: sough, fibrotic, devitalized, biofilm tissue Severity: Fat Layer Exposed Amount of bleeding with debridement: Mild Bleeding Controlled with: Pressure Patient tolerated procedure: Patient tolerated procedure well Assessment/Plan Active Problems (Last Reviewed 12/15/19 @ 18:[address] Tri Terry, DO) Ulcer of left ankle (Acute) Ulcer of left heel (Chronic) Type II diabetes mellitus (Chronic) Assessment: left heel ulcer. left anterior ankle ulcer. DM with hyperglycemia and neuropathy. Hx osteomyelitis left calcaneus Plan: Patient seen and examined with boyfriend present. Patient was last seen in office 4 days ago. Significant amount of fibrous tissue has since built up to heel ulcer. Anterior ankle and heel wound to left foot were sharply debrided. Patient to continue offloading heel. Patient has very little santyl left and has had problems getting refill from pharmacy. Will order dressings for patient. Will start dakins wet to dry for now. Patient has offloaded heel surgical shoe and prevalon boot for offloading. Patient had recent LEAS showing a left RONIT of 1.2 and TBI of 0.74 with tripphasic waveforms. Patient has had heel ulcer without much improvement noted. There is a possibility that she has chronic refactory osteomyelitis remaining to that heel. Discussed possibility of hyperbarics with patient. Patient has already finished terminal operator course of IV antibiotics following hospital stay. Discussed importance of offloading, blood sugar control, diet, and proper wound care to optimize healing potential. Discussed seeing a life underwriter for education on proper nutrition. Patient relates she saw one last year. Continue wound care daily. Educated patient on signs and symptoms of infection to watch out for and to contact office or go to ED if seen. Patient to follow up in 1 week
[2020-03-22 09:32] VITALS: BP 106/70; PULSE 79; RESP 16; TEMP 36.3; BMI 23.3
--- NOTE | 2020-03-23 12:04 | PN.PCM_ITS ---
(1) Ulcer of left ankle Status: Acute Qualifiers: Non-pressure ulcer stage: with fat layer exposed Qualified Code(s): L97.322 - Non-pressure chronic ulcer of left ankle with fat layer exposed Code(s): L97.329 - Non-pressure chronic ulcer of left ankle with unspecified severity (2) Osteomyelitis Status: Ruled-out Qualifiers: Osteomyelitis type: other chronic Osteomyelitis location: foot Laterality: left Qualified Code(s): M86.672 - Other chronic osteomyelitis, left ankle and foot Code(s): M86.9 - Osteomyelitis, unspecified (3) Type II diabetes mellitus Status: Chronic Qualifiers: Diabetes mellitus skilled nursing insulin use: with skilled nursing use Diabetes mellitus complication status: with skin complications Diabetes mellitus complication detail: with foot ulcer Qualified Code(s): E11.621 - Type 2 diabetes mellitus with foot ulcer; L97.509 - Non-pressure chronic ulcer of other part of unspecified foot with unspecified severity; Z79.4 - correction (current) use of insulin Code(s): E11.9 - Type 2 diabetes mellitus without complications (4) Ulcer of left heel Status: Chronic Qualifiers: Non-pressure ulcer stage: with necrosis of bone Qualified Code(s): L97.424 - Non-pressure chronic ulcer of left heel and midfoot with necrosis of bone Code(s): L97.429 - Non-pressure chronic ulcer of left heel and midfoot with unspecified severity Type of Wound Date of Service: 03/22/20 Chief Complaint: left heel ulcer. left ankle ulcer History of Wound: In October 2019, patient had rubbing in shoes while shopping which led to a blishter that developed into an ulceration. Patient was then seen in my office for wound care. Patient then became infected and was admitted to the hospital. Patient was noted to have OM on MRI. Patient wanted to avoid surgery so a terminal makeup operator course of appropriate IV antibiotics was the treatment chosen. Patient was also noted to have hyperglycemia and has worked with hospitalist and PCP to try to get better control. Blood sugar levels remain elevated. Patient also had LEAS obtained in the hospital which suggested patient had the proper blood flow to allow healing. Patient has since finished terminal makeup operator course of antibiotics. Patient has since been seen on a weekly basis in office with progression and regression of wound noted over the weeks. Patient has tried various dressing options including wet to dry and santyl. She also has an offloading surgical shoe and offloading boot to relieve pressure. Patient care is henceforth being carried out at the wound care center. Progress of Wound: improved, less fibrous Subjective: Patient seen and examined with boyfriend present. Patient relates still having issues getting santyl. Patient asks that we call about getting refill. Patient also relates not getting the dakins and has been using betadine instead. Patient denies N/F/V/C/CP/SOB/streaking/purulence - Physical Exam Vital Signs Temp Pulse Resp BP 97.3 F L 79 16 106/70 03/22/20 09:32 03/22/20 09:32 03/22/20 09:32 03/22/20 09:32 General: Alert, Oriented x3 HEENT: Atraumatic Extremities: No clubbing, No cyanosis, Capillary Refill Less than 3 Seconds, No Calf Tenderness, Diminished Peripheral Pulses, Edema, Tenderness - heel Skin: Ulcer/ Wound - left anterior ankle ulcer has slight increase in erytema, no purulence, no other signs of infection, likely increase in friction, no draiange, doesn't probe. left heel ulcer, no periwound maceration, less fibrotic tissue, some granular base noted, no longer probes to bone, no purulence Wound Measurements and Assessment WC - Nurse 1 - General Ulcer Measurement Start: 03/15/20 09:40 Freq: Status: Active Protocol: Activity Type Activity Date Activity User E-Sign Co-Sign Detail Recorded Client Recorded Date Recorded By Document 03/22/20 09:32 [facility] [id number] 03/22/20 09:45 BM 03/22/20 09:32 Wound Center Nurse 1 [Ulcer Assessment] #2 L Ant Ankle -Combined with other wound No -Current Size (cm) - Length 0.1 -Current Size (cm) - Width 0.1 -Current Size (cm) - Depth 0.1 -Total Square Cm 0.01 -Exudate Amt Small -Exudate Type Sanguineous -Wound Margin Distinct, Outline Attached -Granulation Amt Small (1-33%) -Granulation Quality Red -Texture (Bren-wound Skin Appearance) Assessed, Excoriation, Rash -Moisture (Bren-wound Skin Appearance Assessed,Dry/ ) Scaly -Color (Bren-wound Skin Appearance) Assessed, Erythema -Temperature (Bren-wound Skin No Abnormality Appearance) (Pt Warm) -Tenderness on Palpation (Bren-wound No Skin Appearance) -Ulcer Cleansing SOAPY WATER -Foul Odor after Cleansing No -Anesthetic Used 5% Lidocaine Gel #1 L Heel -Combined with other wound No -Current Size (cm) - Length 4.9 -Current Size (cm) - Width 3.8 -Current Size (cm) - Depth 0.3 -Total Square Cm 18.62 -Photo Taken No -Epithelialization None Present -Tunneling No -Undermining/Tunneling No -Circular Undermining No -Exudate Amt Medium -Exudate Type Yellow/Green -Wound Margin Distinct, Outline Attached -Granulation Amt Small (1-33%) -Granulation Quality Red -Slough/Fibrin Yes -Necrosis Amt Large (67-100%) -Necrotic Tissue Type Adherent Slough -Texture (Bren-wound Skin Appearance) Assessed, Scarring -Moisture (Bren-wound Skin Appearance Assessed, ) Maceration -Color (Bren-wound Skin Appearance) Assessed, Erythema,Palor -Temperature (Bren-wound Skin No Abnormality Appearance) (Pt Warm) -Tenderness on Palpation (Bren-wound No Skin Appearance) -Ulcer Cleansing SOAPY WATER -Foul Odor after Cleansing No -Anesthetic Used 5% Lidocaine Gel WC - Nurse 2 - General Ulcer CM Notes Start: 03/15/20 09:40 Freq: Status: Active Protocol: Activity Type Activity Date Activity User E-Sign Co-Sign Detail Recorded Client Recorded Date Recorded By Document 03/22/20 09:56 [id number] 03/22/20 10:05 JAUN 03/22/20 09:56 Wound Center Nurse 2 [Procedure/Treatment] #2 L Ant Ankle -Time 09:57 -Correct Patient Yes -Correct Side, Site, Position Yes -Correct Procedure Yes -Procedure Performed Yes -Type of Procedure Debridement -Clinical Debridement Subcutaneous -Tissue Removed Subcutaneous -Post Debridement (cm) - Length 0.3 -Post Debridement (cm) - Width 1 -Post Debridement (cm) - Depth 0.2 -Total Square (Post) (cm) 0.3 -Area of Debridement (cm) - Length 0.3 -Area of Debridement (cm) - Width 1 -Total Square (Area) (cm) 0.3 -Tunneling No -Undermining/Tunneling No -Circular Undermining No -Wound/Ulcer Outcome Not Healed -Ulcer Cleansing Rinsed/ Irrigated with Saline -Foul Odor after Cleansing No -Bioengineered Tissue No -Bleeding Controlled with Pressure -Offloading No -Debridement - Subq, 1st 20sq cm Yes #1 L Heel -Time 09:57 -Correct Patient Yes -Correct Side, Site, Position Yes -Correct Procedure Yes -Procedure Performed Yes -Type of Procedure Debridement -Clinical Debridement Subcutaneous -Tissue Removed Subcutaneous -Post Debridement (cm) - Length 3.8 -Post Debridement (cm) - Width 3.7 -Post Debridement (cm) - Depth 0.3 -Total Square (Post) (cm) 14.06 -Area of Debridement (cm) - Length 3.8 -Area of Debridement (cm) - Width 3.7 -Total Square (Area) (cm) 14.06 -Tunneling No -Undermining/Tunneling No -Circular Undermining No -Wound/Ulcer Outcome Not Healed -Ulcer Cleansing Rinsed/ Irrigated with Saline -Foul Odor after Cleansing No -Bioengineered Tissue No -Bleeding Controlled with Pressure -Offloading No -Treatment Response Procedure Tolerated Well -Debridement - Subq, 20sq cm No [See Physician Procedure note for Specifics] Pain Scale: 0-10 Numeric [Pain] -Is Patient Pain Free? Yes - Nurse 3 - General Ulcer D/C NN Start: 03/15/20 09:40 Freq: Status: Active Protocol: Activity Type Activity Date Activity User E-Sign Co-Sign Detail Recorded Client Recorded Date Recorded By Document 03/22/20 10:21 DL [id number] 03/22/20 10:22 DL 03/22/20 10:21 Wound Care Nurse 3 [Wound Dressing] #2 L Ant Ankle -Ulcer Cleansing Rinsed/ Irrigated with Saline -Foul Odor after Cleansing No -Other Dressing hydrogel -Primary Dressing Covered/Secured Dry Gauze & with Roll Gauze, Secured with Tape #1 L Heel -Ulcer Cleansing Rinsed/ Irrigated with Saline -Foul Odor after Cleansing No -Other Dressing betadine -Primary Dressing Covered/Secured Dry Gauze & with Roll Gauze, Secured with Tape [Compression Applied] Left -Compression Wrap Surepress ($) [Post Procedure Tolerated] -Treatment Response Procedure Tolerated Well - Visit Discharge [Visit Discharge Information] -Discharge Condition Stable -Ambulatory Status Ambulatory -Transportation Private Auto Musculoskeletal: Muscle Wasting, Tenderness - heel left Neurological: - - decreased epicritic sensation Psych/Mental Status: Normal Affect, Appropriate Debridement Note Post-Debridement Measurements/Treatment - Nurse 2 - General Ulcer CM Notes Start: 03/15/20 09:40 Freq: Status: Active Protocol: Activity Type Activity Date Activity User E-Sign Co-Sign Detail Recorded Client Recorded Date Recorded By Document 03/15/20 10:19 [id number] 03/15/20 10:30 Document 03/22/20 09:56 [id number] 03/22/20 10:05 03/15/20 03/22/20 10:19 09:56 Wound Center Nurse 2 #2 L Ant Ankle -Time 10:19 09:57 -Correct Patient Yes Yes -Correct Side, Site, Position Yes Yes -Correct Procedure Yes Yes -Procedure Performed Yes Yes -Type of Procedure Debridement Debridement -Clinical Debridement Subcutaneous Subcutaneous -Tissue Removed Subcutaneous Subcutaneous -Post Debridement (cm) - Length 1 0.3 -Post Debridement (cm) - Width 2 1 -Post Debridement (cm) - Depth 0.1 0.2 -Total Square (Post) (cm) 2 0.3 -Area of Debridement (cm) - Length 1 0.3 -Area of Debridement (cm) - Width 2 1 -Total Square (Area) (cm) 2 0.3 -Tunneling No No -Undermining/Tunneling No No -Circular Undermining No No -Wound/Ulcer Outcome Not Healed Not Healed -Ulcer Cleansing Rinsed/ Rinsed/ Irrigated with Irrigated with Saline Saline -Foul Odor after Cleansing No No -Bioengineered Tissue No No -Bleeding Controlled with Pressure Pressure -Offloading Yes No -Type of Offloading Surgical Shoe -Treatment Response Procedure Tolerated Well -Debridement - Subq, 1st 20sq cm Yes Yes #1 L Heel -Time 10:20 09:57 -Correct Patient Yes Yes -Correct Side, Site, Position Yes Yes -Correct Procedure Yes Yes -Procedure Performed Yes Yes -Type of Procedure Debridement Debridement -Clinical Debridement Subcutaneous Subcutaneous -Tissue Removed Subcutaneous Subcutaneous -Post Debridement (cm) - Length 3.5 3.8 -Post Debridement (cm) - Width 4.2 3.7 -Post Debridement (cm) - Depth 0.4 0.3 -Total Square (Post) (cm) 14.70 14.06 -Area of Debridement (cm) - Length 3.5 3.8 -Area of Debridement (cm) - Width 4.2 3.7 -Total Square (Area) (cm) 14.70 14.06 -Tunneling No No -Undermining/Tunneling No No -Circular Undermining No No -Wound/Ulcer Outcome Not Healed Not Healed -Ulcer Cleansing Rinsed/ Rinsed/ Irrigated with Irrigated with Saline Saline -Foul Odor after Cleansing No No -Bioengineered Tissue No No -Bleeding Controlled with Pressure Pressure -Offloading Yes No -Type of Offloading Surgical Shoe -Treatment Response Procedure Procedure Tolerated Well Tolerated Well -Debridement - Subq, 1st 20sq cm No No Pain Scale: 0-10 Numeric Is Patient Pain Free? Yes Yes - Nurse 3 - General Ulcer D/C NN Start: 03/15/20 09:40 Freq: Status: Active Protocol: Activity Type Activity Date Activity User E-Sign Co-Sign Detail Recorded Client Recorded Date Recorded By Document 03/15/20 10:42 DL [id number] 03/15/20 10:46 DL Document 03/22/20 10:21 DL [id number] 03/22/20 10:22 DL 03/15/20 03/22/20 10:42 10:21 Wound Care Nurse 3 #2 L Ant Ankle -Ulcer Cleansing Wound Cleanser Rinsed/ Irrigated with Saline -Foul Odor after Cleansing No No -Primary Dressing Applied C Hydrogel ($) -Other Dressing hydrogel -Primary Dressing Covered/Secured with Dry Gauze,Dry Dry Gauze & Gauze & Roll Roll Gauze, Gauze,Secured Secured with with Tape Tape #1 L Heel -Ulcer Cleansing Wound Cleanser Rinsed/ Irrigated with Saline -Foul Odor after Cleansing No No -Other Dressing moist gauze betadine -Primary Dressing Covered/Secured with Dry Gauze & Dry Gauze & Roll Gauze, Roll Gauze, Secured with Secured with Tape Tape -Other Covering padding to heel Left -Compression Wrap Surepress ($) Surepress ($) Treatment Response Procedure Procedure Tolerated Well Tolerated Well Pain Scale: 0-10 Numeric Is Patient Pain Free? Yes WC - Visit Discharge Discharge Condition Stable Stable Ambulatory Status Walker Ambulatory Transportation Private Auto Private Auto Accompanied by Notes: Pt to start Dakins to L Heel when available Wound debrided: heel Laterality: Left Wound Grade/Stage: jeffrey 3 Type of Debridement: Excisional debridement Anesthesia Used: 4% Lidocaine Solution Depth: in the subcutaneous layer Percentage of wound debrided: 100 Instrument Used: 3mm curette Tissue Removed: slough, fibrous, biofilm, devitalized tissue Severity: Fat Layer Exposed Amount of bleeding with debridement: Mild Bleeding Controlled with: Pressure Patient tolerated procedure well - Additional Wound Wound debrided: anterior ankle Laterality: Left Wound Grade/Stage: jeffrey 2 Type of Debridement: Excisional debridement Anesthesia Used: 4% Lidocaine Solution Depth: in the subcutaneous layer Percentage of wound debrided: 100 Instrument Used: 3mm curette Tissue Removed: biofilm, fibrous, devitalized, slough tissue Severity: Fat Layer Exposed Amount of bleeding with debridement: Mild Bleeding Controlled with: Pressure Patient tolerated procedure: Patient tolerated procedure well Assessment/Plan Active Problems (Last Reviewed 12/15/19 @ 18:[address] Tri Terry, DO) Ulcer of left ankle (Acute) Ulcer of left heel (Chronic) Type II diabetes mellitus (Chronic) Assessment: left heel ulcer. left anterior ankle ulcer. DM with hyperglycemia and neuropathy. Hx osteomyelitis left calcaneus Plan: Patient seen and examined with boyfriend present. Patient has history of osteomyelitis with ulcer probing to bone with hospital stay and course of IV antiboitics. Patient wished to avoid surgical resection. Patient has since finished course of antibiotics. There has been progression and regression of the wound since noted. Decrease in fibrotic tissue noted to heel since last visit. Anterior ankle and heel wound to left foot were sharply debrided. Patient to continue offloading heel. Patient has had refill for santyl approved and should be available to patient in a few days. Patient to continue wet to dry for now until santyl refill is obtained. Patient has offloaded heel surgical shoe and prevalon boot for offloading. Patient had recent LEAS showing a left RONIT of 1.2 and TBI of 0.74 with triphasic waveforms. Patient has had heel ulcer without much improvement noted. There is a possibility that she has chronic refactory osteomyelitis remaining to that heel. Discussed possibility of hyperbarics with patient. Patient has already finished terminal makeup operator course of IV antibiotics following hospital stay where osteomyelitis was noted. Discussed importance of offloading, blood sugar control, diet, and proper wound care to optimize healing potential. Discussed seeing a assessment clinician for education on proper nutrition. Patient relates she saw one last year. Continue wound care daily. Educated patient on signs and symptoms of infection to watch out for and to contact office or go to ED if seen. Patient to follow up in 1 week
== END 2020-03-31 23:59 ==
LOC: WC 10:00
PROVIDERS: PCP Family Medicine; Referring Provider Podiatrist; Visit Provider Podiatrist Foot & Ankle Surgery
DX: E11.621 Type 2 diabetes mellitus with foot ulcer (principal); L97.322 Non-pressure chronic ulcer of left ankle with fat layer exposed; M86.672 Other chronic osteomyelitis, left ankle and foot; Z79.4 Long term (current) use of insulin; L97.424 Non-pressure chronic ulcer of left heel and midfoot with necrosis of bone; E11.65 Type 2 diabetes mellitus with hyperglycemia; E11.40 Type 2 diabetes mellitus with diabetic neuropathy, unspecified; E78.5 Hyperlipidemia, unspecified; I10 Essential (primary) hypertension; Z79.82 Long term (current) use of aspirin; Z80.1 Family history of malignant neoplasm of trachea, bronchus and lung; Z82.49 Family history of ischemic heart disease and other diseases of the circulatory system; Z83.3 Family history of diabetes mellitus; Z87.820 Personal history of traumatic brain injury; Z90.49 Acquired absence of other specified parts of digestive tract
CPT/HCPCS: 11042; 99213; G0463

== ENCOUNTER 2020-04-19 10:30 | Outpatient (RCR) | payer MEDICAID, SELFPAY ==
[2020-04-01 00:40] VITALS: BP 106/70; PULSE 79; RESP 16; TEMP 36.3
[2020-04-05 10:43] VITALS: BP 115/66; PULSE 76; RESP 20; TEMP 36.1; BMI 23.3
--- NOTE | 2020-04-05 11:22 | PN.PCM_ITS ---
(1) Pressure ulcer of left heel, stage 4 Status: Chronic Code(s): L89.624 - Pressure ulcer of left heel, stage 4 (2) Ulcer of left ankle Status: Acute Qualifiers: Code(s): L97.329 - Non-pressure chronic ulcer of left ankle with unspecified severity (3) Ulcer of left heel Status: Chronic Qualifiers: Code(s): L97.429 - Non-pressure chronic ulcer of left heel and midfoot with unspecified severity (4) Type II diabetes mellitus Status: Chronic Qualifiers: Code(s): E11.9 - Type 2 diabetes mellitus without complications Type of Wound Date of Service: 04/05/20 Chief Complaint: left heel ulcer. left ankle ulcer History of Wound: In October 2019, patient had rubbing in shoes while shopping which led to a blister that developed into an ulceration. Patient was then seen in my office for wound care. Patient then became infected and was admitted to the hospital. Patient was noted to have OM on MRI. Patient wanted to avoid surgery so a skilled nursing course of appropriate IV antibiotics was the treatment chosen. Patient was also noted to have hyperglycemia and has worked with hospitalist and PCP to try to get better control. Blood sugar levels remain elevated. Patient also had LEAS obtained in the hospital which suggested patient had the proper blood flow to allow healing. Patient has since finished skilled nursing course of antibiotics. Patient has since been seen on a weekly basis in office with progression and regression of wound noted over the weeks. Patient has tried various dressing options including wet to dry and santyl. She also has an offloading surgical shoe and offloading boot to relieve pressure. Patient care is henceforth being carried out at the wound care center. More Santyl was able to be obtained for the patient using specialty pharmacy. Wound noted to have improved. Patient is not seen last week due to patient and her boyfriend who is her transportation not feeling well but they had no concerns about the foot. Progress of Wound: improved, significantly less fibrous tissue noted and periwound maceration Subjective: Patient seen and examined bedside. Patient denies any new pedal complaints. Patient denies any nausea, fever, and chest pain, shortness of breath, chills, cough, streaking, purulence, vomiting. - Physical Exam Vital Signs Temp Pulse Resp BP 96.9 F L 76 20 H 115/66 04/05/20 10:43 04/05/20 10:43 04/05/20 10:43 04/05/20 10:43 General: Alert, Oriented x3 HEENT: Atraumatic Extremities: No clubbing, No cyanosis, Capillary Refill Less than 3 Seconds, No Calf Tenderness, Diminished Peripheral Pulses, Edema, Tenderness - Left heel Skin: Ulcer/ Wound - Left heel. No malodor, erythema, purulence, probing to bone, streaking, or other signs of infection. Skin is atrophic and hairless. Granular base with serosanguineous drainage after debridement to periwound area with central 40% of the wound with fibrotic tissue, - - Anterior left ankle wound. Decreased erythema noted to area. Dry skin noted around area. Granular base with some skin slough noted. No signs of infection. Redness likely due to rubbing on dressing Wound Measurements and Assessment WC - Nurse 1 - General Ulcer Measurement Start: 04/05/20 10:42 Freq: Status: Active Protocol: Activity Type Activity Date Activity User E-Sign Co-Sign Detail Recorded Client Recorded Date Recorded By Document 04/05/20 10:43 DL [id number] 04/05/20 10:53 DL 04/05/20 10:43 Wound Center Nurse 1 [Ulcer Assessment] #2 L Ant Ankle -Current Size (cm) - Length 0.1 -Current Size (cm) - Width 0.1 -Current Size (cm) - Depth 0.1 -Total Square Cm 0.01 -Photo Taken No -Exudate Amt None Present -Wound Margin Flat & Intact -Granulation Amt Large (67-100%) -Granulation Quality Fair Plain -Necrosis Amt Small (1-33%) -Necrotic Tissue Type Adherent Slough -Structure Exposed N/A -Texture (Bren-wound Skin Appearance) Scarring -Moisture (Bren-wound Skin Appearance Dry/Scaly ) -Color (Bren-wound Skin Appearance) No Abnormality -Temperature (Bren-wound Skin No Abnormality Appearance) (Pt Warm) -Tenderness on Palpation (Bren-wound No Skin Appearance) -Ulcer Cleansing Wound Cleanser -Foul Odor after Cleansing No -Anesthetic Used 4% Lidocaine Solution #1 L Heel -Current Size (cm) - Length 3.1 -Current Size (cm) - Width 4.8 -Current Size (cm) - Depth 0.5 -Total Square Cm 14.88 -Photo Taken No -Exudate Amt Small -Exudate Type Serosanguineous -Wound Margin Distinct, Outline Attached -Granulation Amt Medium (34-66%) -Granulation Quality Red -Necrosis Amt Medium (34-66%) -Necrotic Tissue Type Adherent Slough -Structure Exposed N/A -Texture (Bren-wound Skin Appearance) Scarring -Moisture (Bren-wound Skin Appearance No Abnormality ) -Color (Bren-wound Skin Appearance) No Abnormality -Temperature (Bren-wound Skin No Abnormality Appearance) (Pt Warm) -Tenderness on Palpation (Bren-wound No Skin Appearance) -Ulcer Cleansing Wound Cleanser -Foul Odor after Cleansing No -Anesthetic Used 4% Lidocaine Solution [Edema Assessment] -Left Calf (cm) 32 -Left Ankle (cm) 19.5 WC - Nurse 2 - General Ulcer CM Notes Start: 04/05/20 10:42 Freq: Status: Active Protocol: Activity Type Activity Date Activity User E-Sign Co-Sign Detail Recorded Client Recorded Date Recorded By Document 04/05/20 11:10 MW [id number] 04/05/20 11:16 MW 04/05/20 11:10 Wound Center Nurse 2 [Procedure/Treatment] #2 L Ant Ankle -Time 11:10 -Correct Patient Yes -Correct Side, Site, Position Yes -Correct Procedure Yes -Procedure Performed No -Post Debridement (cm) - Length 0.1 -Post Debridement (cm) - Width 0.1 -Post Debridement (cm) - Depth 0.1 -Total Square (Post) (cm) 0.01 -Tunneling No -Undermining/Tunneling No -Circular Undermining No -Wound/Ulcer Outcome Not Healed -Ulcer Cleansing Rinsed/ Irrigated with Saline -Bleeding Controlled with Pressure #1 L Heel -Time 11:11 -Correct Patient Yes -Correct Side, Site, Position Yes -Correct Procedure Yes -Procedure Performed Yes -Type of Procedure Debridement -Clinical Debridement Subcutaneous -Tissue Removed Subcutaneous -Post Debridement (cm) - Length 4.0 -Post Debridement (cm) - Width 3.3 -Post Debridement (cm) - Depth 0.5 -Total Square (Post) (cm) 13.20 -Area of Debridement (cm) - Length 4.0 -Area of Debridement (cm) - Width 3.3 -Total Square (Area) (cm) 13.20 -Tunneling No -Undermining/Tunneling No -Circular Undermining No -Wound/Ulcer Outcome Not Healed -Ulcer Cleansing Rinsed/ Irrigated with Saline -Foul Odor after Cleansing No -Bioengineered Tissue No -Bleeding Controlled with Pressure -Offloading No -Treatment Response Procedure Tolerated Well -Debridement - Subq, 1st 20sq cm Yes [See Physician Procedure note for Specifics] Pain Scale: 0-10 Numeric [Pain] -Is Patient Pain Free? Yes Musculoskeletal: Muscle Wasting, Tenderness - Mild tenderness to left foot on debridement which was well-tolerated Neurological: - - Lack of epicritic sensation consistent with neuropathy Psych/Mental Status: Normal Affect, Appropriate Debridement Note Post-Debridement Measurements/Treatment WC - Nurse 2 - General Ulcer CM Notes Start: 04/05/20 10:42 Freq: Status: Active Protocol: Activity Type Activity Date Activity User E-Sign Co-Sign Detail Recorded Client Recorded Date Recorded By Document 04/05/20 11:10 MW [id number] 04/05/20 11:16 MW 04/05/20 11:10 Wound Center Nurse 2 #2 L Ant Ankle -Time 11:10 -Correct Patient Yes -Correct Side, Site, Position Yes -Correct Procedure Yes -Procedure Performed No -Post Debridement (cm) - Length 0.1 -Post Debridement (cm) - Width 0.1 -Post Debridement (cm) - Depth 0.1 -Total Square (Post) (cm) 0.01 -Tunneling No -Undermining/Tunneling No -Circular Undermining No -Wound/Ulcer Outcome Not Healed -Ulcer Cleansing Rinsed/ Irrigated with Saline -Bleeding Controlled with Pressure #1 L Heel -Time 11:11 -Correct Patient Yes -Correct Side, Site, Position Yes -Correct Procedure Yes -Procedure Performed Yes -Type of Procedure Debridement -Clinical Debridement Subcutaneous -Tissue Removed Subcutaneous -Post Debridement (cm) - Length 4.0 -Post Debridement (cm) - Width 3.3 -Post Debridement (cm) - Depth 0.5 -Total Square (Post) (cm) 13.20 -Area of Debridement (cm) - Length 4.0 -Area of Debridement (cm) - Width 3.3 -Total Square (Area) (cm) 13.20 -Tunneling No -Undermining/Tunneling No -Circular Undermining No -Wound/Ulcer Outcome Not Healed -Ulcer Cleansing Rinsed/ Irrigated with Saline -Foul Odor after Cleansing No -Bioengineered Tissue No -Bleeding Controlled with Pressure -Offloading No -Treatment Response Procedure Tolerated Well -Debridement - Subq, 1st 20sq cm Yes Pain Scale: 0-10 Numeric Is Patient Pain Free? Yes Wound debrided: heel Laterality: Left Wound Grade/Stage: Glasgow 3 Type of Debridement: Excisional debridement Anesthesia Used: 4% Lidocaine Solution Depth: in the subcutaneous layer Percentage of wound debrided: 100 Instrument Used: 5mm curette, - - tissue numbers Tissue Removed: Tissue removed includes fibrous, devitalized, biofilm, and slough tissue Severity: Fat Layer Exposed Amount of bleeding with debridement: Mild Bleeding Controlled with: Pressure Patient tolerated procedure well - Additional Wound Wound debrided: Anterior ankle Laterality: Left Wound Grade/Stage: Glasgow 1 Type of Debridement: Excisional debridement Anesthesia Used: 4% Lidocaine Solution Depth: in the subcutaneous layer Percentage of wound debrided: 100 Instrument Used: 5mm curette Tissue Removed: Tissue removed includes fibrous, devitalized, biofilm, and slough tissue Severity: Limited To Skin Breakdown Amount of bleeding with debridement: None Patient tolerated procedure: Patient tolerated procedure well Assessment/Plan Active Problems (Last Reviewed 12/15/19 @ 18:[address] Tri Terry, DO) Pressure ulcer of left heel, stage 4 (Chronic) Ulcer of left ankle (Acute) Ulcer of left heel (Chronic) Type II diabetes mellitus (Chronic) Assessment: left heel ulcer. left anterior ankle ulcer. DM with hyperglycemia and neuropathy. Hx osteomyelitis left calcaneus Plan: Patient seen and examined with boyfriend present. Patient has history of osteomyelitis with ulcer probing to bone with hospital stay and course of IV antiboitics. Patient wished to avoid surgical resection. Patient has since finished course of antibiotics. There has been progression and regression of the wound since noted. Decrease in fibrotic tissue noted to heel since last visit. Anterior ankle and heel wound to left foot were sharply debrided. Patient to continue offloading heel. Patient has had refill for santyl approved and was received. Patient has noted improvement and wound appearance and decreasing fibrotic tissue with application of Santyl. Patient has offloaded heel surgical shoe and prevalon boot for offloading. Patient had recent LEAS showing a left RONIT of 1.2 and TBI of 0.74 with triphasic waveforms. Discussed importance of offloading, blood sugar control, diet, and proper wound care to optimize healing potential. Discussed seeing a sole scraper for education on proper nutrition. Patient relates she saw one last year. Continue wound care daily. Educated patient on signs and symptoms of infection to watch out for and to contact office or go to ED if seen. Patient to follow up in 1 week
[2020-04-12 10:09] VITALS: BP 103/66; PULSE 70; RESP 16; TEMP 35.9; BMI 23.3
--- NOTE | 2020-04-12 10:39 | PCM.WC.PN ---
(1) Pressure ulcer of left heel, stage 4 Status: Chronic Code(s): L89.624 - Pressure ulcer of left heel, stage 4 (2) Ulcer of left ankle Status: Acute Qualifiers: Code(s): L97.329 - Non-pressure chronic ulcer of left ankle with unspecified severity (3) Ulcer of left heel Status: Chronic Qualifiers: Code(s): L97.429 - Non-pressure chronic ulcer of left heel and midfoot with unspecified severity (4) Type II diabetes mellitus Status: Chronic Qualifiers: Code(s): E11.9 - Type 2 diabetes mellitus without complications Type of Wound Date of Service: 04/12/20 Chief Complaint: left heel ulcer. left ankle ulcer- healed History of Wound: In October 2019, patient had rubbing in shoes while shopping which led to a blister that developed into an ulceration. Patient was then seen in my office for wound care. Patient then became infected and was admitted to the hospital. Patient was noted to have OM on MRI. Patient wanted to avoid surgery so a assisted course of appropriate IV antibiotics was the treatment chosen. Patient was also noted to have hyperglycemia and has worked with hospitalist and PCP to try to get better control. Blood sugar levels remain elevated. Patient also had LEAS obtained in the hospital which suggested patient had the proper blood flow to allow healing. Patient has since finished oysterman course of antibiotics. Patient has since been seen on a weekly basis in office with progression and regression of wound noted over the weeks. Patient has tried various dressing options including wet to dry and santyl. The most progress was noted with Santyl but patient ran out and was unable to refill due to insurance issues. During which time the wound regressed. She also has an offloading surgical shoe and offloading boot to relieve pressure. Patient care is henceforth being carried out at the wound care center. More Santyl was able to be obtained for the patient using specialty pharmacy. Wound noted to have improved. Patient not currently on any antibiotics. Progress of Wound: improved, significantly less fibrous tissue noted and periwound maceration has resolved Subjective: Patient seen and examined bedside. Patient denies any new pedal complaints. Patient denies any nausea, fever, chills, chest pain, shortness of breath, cough, streaking, purulence, vomiting. - Physical Exam Vital Signs Temp Pulse Resp BP 96.6 F L 70 16 103/66 04/12/20 10:09 04/12/20 10:09 04/12/20 10:04/12/20 10:09 General: Alert, Oriented x3 HEENT: Atraumatic Extremities: No clubbing, No cyanosis, Capillary Refill Less than 3 Seconds, No Calf Tenderness, Diminished Peripheral Pulses, Edema, - - Anterior left ankle wound has healed with some remaining dry skin and minimal redness from rubbing. Skin: Ulcer/ Wound - Left heel ulcer. No malodor, erythema, purulence, probing to bone, streaking, or other signs of infection. Skin is atrophic and hairless. Largely granular base with 35% fibrotic central aspect. Periwound maceration resolved. Wound Measurements and Assessment WC - Nurse 1 - General Ulcer Measurement Start: 04/05/20 10:42 Freq: Status: Active Protocol: Activity Type Activity Date Activity User E-Sign Co-Sign Detail Recorded Client Recorded Date Recorded By Document 04/12/20 10:09 [id number] [id number] 04/12/20 10:19 Document 04/12/20 10:26 [id number] 04/12/20 10:26 04/12/20 04/12/20 10:09 10:26 Wound Center Nurse 1 [Ulcer Assessment] #2 L Ant Ankle -Combined with other wound No -Current Size (cm) - Length 0 -Current Size (cm) - Width 0 -Current Size (cm) - Depth 0 -Total Square Cm 0 #1 L Heel -Combined with other wound No -Current Size (cm) - Length 3.7 -Current Size (cm) - Width 3.4 -Current Size (cm) - Depth 0.7 -Total Square Cm 12.58 -Photo Taken No -Epithelialization None Present -Tunneling No -Undermining/Tunneling No -Circular Undermining No -Exudate Amt Medium -Exudate Type Serosanguineous -Wound Margin Flat & Intact -Granulation Amt Medium (34-66%) -Granulation Quality Red -Slough/Fibrin Yes -Necrosis Amt Medium (34-66%) -Necrotic Tissue Type Adherent Slough -Structure Exposed N/A -Texture (Bren-wound Skin Appearance) Assessed -Moisture (Bren-wound Skin Appearance Assessed ) -Color (Bren-wound Skin Appearance) Assessed -Temperature (Bren-wound Skin No Abnormality Appearance) (Pt Warm) -Tenderness on Palpation (Bren-wound No Skin Appearance) -Ulcer Cleansing Rinsed/ Irrigated with Saline -Foul Odor after Cleansing No -Anesthetic Used 4% Lidocaine Solution WC - Nurse 2 - General Ulcer CM Notes Start: 04/05/20 10:42 Freq: Status: Active Protocol: Activity Type Activity Date Activity User E-Sign Co-Sign Detail Recorded Client Recorded Date Recorded By Document 04/12/20 10:27 JAUN [id number] 04/12/20 10:38 JAUN 04/12/20 10:27 Wound Center Nurse 2 [Procedure/Treatment] -Time 10:31 -Correct Patient No -Correct Side, Site, Position No -Correct Procedure No -Procedure Performed No -Post Debridement (cm) - Length 0 -Post Debridement (cm) - Width 0 -Post Debridement (cm) - Depth 0 -Total Square (Post) (cm) 0 -Area of Debridement (cm) - Length 0 -Area of Debridement (cm) - Width 0 -Total Square (Area) (cm) 0 -Tunneling No -Undermining/Tunneling No -Circular Undermining No -Wound/Ulcer Outcome Healed- Epithelialized #1 L Heel -Time 10:32 -Correct Patient Yes -Correct Side, Site, Position Yes -Correct Procedure Yes -Procedure Performed Yes -Type of Procedure Debridement -Clinical Debridement Subcutaneous -Tissue Removed Subcutaneous -Post Debridement (cm) - Length 3.4 -Post Debridement (cm) - Width 3.5 -Post Debridement (cm) - Depth 0.5 -Total Square (Post) (cm) 11.90 -Area of Debridement (cm) - Length 3.4 -Area of Debridement (cm) - Width 3.5 -Total Square (Area) (cm) 11.90 -Tunneling No -Undermining/Tunneling No -Circular Undermining No -Wound/Ulcer Outcome Not Healed -Ulcer Cleansing Rinsed/ Irrigated with Saline -Foul Odor after Cleansing No -Bioengineered Tissue No -Bleeding Controlled with Pressure -Offloading Yes -Type of Offloading Surgical Shoe -Debridement - Subq, 1st 20sq cm Yes [See Physician Procedure note for Specifics] Pain Scale: 0-10 Numeric [Pain] -Is Patient Pain Free? Yes Musculoskeletal: No Tenderness to Palpation of Joints or Extremities, Muscle Wasting Neurological: - - Lack of epicritic sensation consistent with neuropathy Psych/Mental Status: Normal Affect, Appropriate Debridement Note Post-Debridement Measurements/Treatment WC - Nurse 2 - General Ulcer CM Notes Start: 04/05/20 10:42 Freq: Status: Active Protocol: Activity Type Activity Date Activity User E-Sign Co-Sign Detail Recorded Client Recorded Date Recorded By Document 04/05/20 11:10 MW [id number] 04/05/20 11:16 MW Document 04/12/20 10:27 [id number] 04/12/20 10:38 JF 04/05/20 04/12/20 11:10 10:27 Wound Center Nurse 2 #2 L Ant Ankle -Time 11:10 10:31 -Correct Patient Yes No -Correct Side, Site, Position Yes No -Correct Procedure Yes No -Procedure Performed No No -Post Debridement (cm) - Length 0.1 0 -Post Debridement (cm) - Width 0.1 0 -Post Debridement (cm) - Depth 0.1 0 -Total Square (Post) (cm) 0.01 0 -Area of Debridement (cm) - Length 0 -Area of Debridement (cm) - Width 0 -Total Square (Area) (cm) 0 -Tunneling No No -Undermining/Tunneling No No -Circular Undermining No No -Wound/Ulcer Outcome Not Healed Healed- Epithelialized -Ulcer Cleansing Rinsed/ Irrigated with Saline -Bleeding Controlled with Pressure #1 L Heel -Time 11:11 10:32 -Correct Patient Yes Yes -Correct Side, Site, Position Yes Yes -Correct Procedure Yes Yes -Procedure Performed Yes Yes -Type of Procedure Debridement Debridement -Clinical Debridement Subcutaneous Subcutaneous -Tissue Removed Subcutaneous Subcutaneous -Post Debridement (cm) - Length 4.0 3.4 -Post Debridement (cm) - Width 3.3 3.5 -Post Debridement (cm) - Depth 0.5 0.5 -Total Square (Post) (cm) 13.20 11.90 -Area of Debridement (cm) - Length 4.0 3.4 -Area of Debridement (cm) - Width 3.3 3.5 -Total Square (Area) (cm) 13.20 11.90 -Tunneling No No -Undermining/Tunneling No No -Circular Undermining No No -Wound/Ulcer Outcome Not Healed Not Healed -Ulcer Cleansing Rinsed/ Rinsed/ Irrigated with Irrigated with Saline Saline -Foul Odor after Cleansing No No -Bioengineered Tissue No No -Bleeding Controlled with Pressure Pressure -Offloading No Yes -Type of Offloading Surgical Shoe -Treatment Response Procedure Tolerated Well -Debridement - Subq, 1st 20sq cm Yes Yes Pain Scale: 0-10 Numeric Is Patient Pain Free? Yes Yes - Nurse 3 - General Ulcer D/C NN Start: 04/05/20 10:42 Freq: Status: Active Protocol: Activity Type Activity Date Activity User E-Sign Co-Sign Detail Recorded Client Recorded Date Recorded By Document 04/05/20 11:29 DL [id number] 04/05/20 11:33 DL 04/05/20 11:29 Wound Care Nurse 3 #2 L Ant Ankle -Ulcer Cleansing Rinsed/ Irrigated with Saline -Foul Odor after Cleansing No -Other Dressing hydrogel/ padding -Primary Dressing Covered/Secured with Dry Gauze & Roll Gauze, Secured with Tape #1 L Heel -Ulcer Cleansing Wound Cleanser -Foul Odor after Cleansing No -Other Dressing santyl -Primary Dressing Covered/Secured with Dry Gauze & Roll Gauze, Secured with Tape -Other Covering padding Treatment Response Procedure Tolerated Well Pain Scale: 0-10 Numeric Is Patient Pain Free? Yes - Visit Discharge Discharge Condition Stable Ambulatory Status Ambulatory, Walker Wound debrided: heel Laterality: Left Wound Grade/Stage: Glasgow 3 Type of Debridement: Excisional debridement Anesthesia Used: 4% Lidocaine Solution Depth: in the subcutaneous layer Percentage of wound debrided: 100 Instrument Used: 5mm curette Tissue Removed: Tissue removed includes fibrous, devitalized, biofilm, and slough tissue Severity: Fat Layer Exposed Amount of bleeding with debridement: Mild Bleeding Controlled with: Pressure Patient tolerated procedure well Assessment/Plan Active Problems (Last Reviewed 12/15/19 @ 18:[address] Tri Terry, DO) Pressure ulcer of left heel, stage 4 (Chronic) Ulcer of left ankle (Acute) Ulcer of left heel (Chronic) Type II diabetes mellitus (Chronic) Assessment: left heel ulcer. left anterior ankle ulcer?healed. DM with hyperglycemia and neuropathy. Hx osteomyelitis left calcaneus Plan: Patient seen and examined with boyfriend present. Patient has history of osteomyelitis with ulcer probing to bone with hospital stay and course of IV antiboitics. Patient wished to avoid surgical resection. Patient has since finished course of antibiotics. There has been progression and regression of the wound since noted. Decrease in fibrotic tissue noted to heel since last visit. heel wound to left foot were sharply debrided without incident. Anterior ankle wound to left foot has healed. Patient encouraged to lotion area skin is very dry as well as to pad area well to prevent future breakdown with dressing changes. Patient to continue offloading heel. Patient has noted improvement and wound appearance and decreasing fibrotic tissue with application of Santyl. Patient has offloaded heel surgical shoe and prevalon boot for offloading. Patient had recent LEAS showing a left RONIT of 1.2 and TBI of 0.74 with triphasic waveforms. Discussed importance of offloading, blood sugar control, diet, and proper wound care to optimize healing potential. Discussed seeing a manager respiratory care for education on proper nutrition. Patient relates she saw one last year. Continue wound care daily. Educated patient on signs and symptoms of infection to watch out for and to contact office or go to ED if seen. Also discussed potential for HBO therapy if wound stalls out again. Will start application process for skin substitute with epi fix in epic cord for potential application next week. Patient to follow up in 1 week
[2020-04-19 10:56] VITALS: BP 131/76; PULSE 77; RESP 18; TEMP 36.4; BMI 23.3
--- NOTE | 2020-04-19 11:35 | PN.PCM_ITS ---
(1) Pressure ulcer of left heel, stage 4 Status: Chronic Code(s): L89.624 - Pressure ulcer of left heel, stage 4 (2) Ulcer of left ankle Status: Acute Qualifiers: Code(s): L97.329 - Non-pressure chronic ulcer of left ankle with unspecified severity (3) Ulcer of left heel Status: Chronic Qualifiers: Code(s): L97.429 - Non-pressure chronic ulcer of left heel and midfoot with unspecified severity (4) Type II diabetes mellitus Status: Chronic Qualifiers: Code(s): E11.9 - Type 2 diabetes mellitus without complications Type of Wound Date of Service: 04/22/20 Chief Complaint: left heel ulcer. left ankle ulcer- healed History of Wound: In October 2019, patient had rubbing in shoes while shopping which led to a blister that developed into an ulceration. Patient was then seen in my office for wound care. Patient then became infected and was admitted to the hospital. Patient was noted to have OM on MRI. Patient wanted to avoid surgery so a longterm course of appropriate IV antibiotics was the treatment chosen. Patient was also noted to have hyperglycemia and has worked with hospitalist and PCP to try to get better control. Blood sugar levels remain elevated. Patient also had LEAS obtained in the hospital which suggested patient had the proper blood flow to allow healing. Patient has since finished fieldwork coordinator course of antibiotics. Patient has since been seen on a weekly basis in office with progression and regression of wound noted over the weeks. Patient has tried various dressing options including wet to dry and santyl. The most progress was noted with Santyl but patient ran out and was unable to refill due to insurance issues. During which time the wound regressed. She also has an offloading surgical shoe and offloading boot to relieve pressure. Patient care is henceforth being carried out at the wound care center. More Santyl was able to be obtained for the patient using specialty pharmacy. Wound noted to have improved. Patient not currently on any antibiotics. Progress of Wound: improved, less fibrous tissue noted and periwound maceration has resolved Subjective: Patient seen and examined bedside. Patient denies any new pedal complaints. Patient denies nausea, fever, vomiting, chills, chest pain, shortness of breath, streaking, purulence - Physical Exam Vital Signs Temp Pulse Resp BP 97.6 F L 77 18 131/76 H 04/19/20 10:56 04/19/20 10:56 04/19/20 10:56 04/19/20 10:56 General: Alert, Oriented x3, Cooperative HEENT: Atraumatic Extremities: No clubbing, No cyanosis, Capillary Refill Less than 3 Seconds, No Calf Tenderness, Diminished Peripheral Pulses, Edema Skin: Ulcer/ Wound - left posterior heel with granular base, small central area with fibrotic tissue, no malodor, doesn't probe to bone, no streaking, serosanginous drainage, no signs of infection. Anterior left ankle red, dry skin with some excoriations, - - hairless Wound Measurements and Assessment WC - Nurse 1 - General Ulcer Measurement Start: 04/05/20 10:42 Freq: Status: Active Protocol: Activity Type Activity Date Activity User E-Sign Co-Sign Detail Recorded Client Recorded Date Recorded By Document 04/19/20 10:56 DL [id number] 04/19/20 11:03 DL 04/19/20 10:56 Wound Center Nurse 1 [Ulcer Assessment] #1 L Heel -Current Size (cm) - Length 4.7 -Current Size (cm) - Width 3.4 -Current Size (cm) - Depth 0.2 -Total Square Cm 15.98 -Photo Taken No -Exudate Amt Medium -Exudate Type Serosanguineous -Wound Margin Thickened -Granulation Amt Medium (34-66%) -Granulation Quality Red -Necrosis Amt Medium (34-66%) -Necrotic Tissue Type Adherent Slough -Structure Exposed N/A -Texture (Bren-wound Skin Appearance) Scarring -Moisture (Bren-wound Skin Appearance Maceration ) -Color (Bren-wound Skin Appearance) No Abnormality -Temperature (Bren-wound Skin No Abnormality Appearance) (Pt Warm) -Tenderness on Palpation (Bren-wound No Skin Appearance) -Ulcer Cleansing Wound Cleanser -Foul Odor after Cleansing No -Anesthetic Used 5% Lidocaine Gel [Edema Assessment] -Left Calf (cm) 33.5 -Left Ankle (cm) 19.3 Musculoskeletal: Muscle Wasting, Tenderness - mild to heel left Neurological: - - decreased epicritic sensation Psych/Mental Status: Normal Affect, Appropriate Debridement Note Post-Debridement Measurements/Treatment WC - Nurse 2 - General Ulcer CM Notes Start: 04/05/20 10:42 Freq: Status: Active Protocol: Activity Type Activity Date Activity User E-Sign Co-Sign Detail Recorded Client Recorded Date Recorded By Document 04/05/20 11:10 [id number] 04/05/20 11:16 MW Document 04/12/20 10:27 [id number] 04/12/20 10:38 04/05/20 04/12/20 11:10 10:27 Wound Center Nurse 2 #2 L Ant Ankle -Time 11:10 10:31 -Correct Patient Yes No -Correct Side, Site, Position Yes No -Correct Procedure Yes No -Procedure Performed No No -Post Debridement (cm) - Length 0.1 0 -Post Debridement (cm) - Width 0.1 0 -Post Debridement (cm) - Depth 0.1 0 -Total Square (Post) (cm) 0.01 0 -Area of Debridement (cm) - Length 0 -Area of Debridement (cm) - Width 0 -Total Square (Area) (cm) 0 -Tunneling No No -Undermining/Tunneling No No -Circular Undermining No No -Wound/Ulcer Outcome Not Healed Healed- Epithelialized -Ulcer Cleansing Rinsed/ Irrigated with Saline -Bleeding Controlled with Pressure #1 L Heel -Time 11:11 10:32 -Correct Patient Yes Yes -Correct Side, Site, Position Yes Yes -Correct Procedure Yes Yes -Procedure Performed Yes Yes -Type of Procedure Debridement Debridement -Clinical Debridement Subcutaneous Subcutaneous -Tissue Removed Subcutaneous Subcutaneous -Post Debridement (cm) - Length 4.0 3.4 -Post Debridement (cm) - Width 3.3 3.5 -Post Debridement (cm) - Depth 0.5 0.5 -Total Square (Post) (cm) 13.20 11.90 -Area of Debridement (cm) - Length 4.0 3.4 -Area of Debridement (cm) - Width 3.3 3.5 -Total Square (Area) (cm) 13.20 11.90 -Tunneling No No -Undermining/Tunneling No No -Circular Undermining No No -Wound/Ulcer Outcome Not Healed Not Healed -Ulcer Cleansing Rinsed/ Rinsed/ Irrigated with Irrigated with Saline Saline -Foul Odor after Cleansing No No -Bioengineered Tissue No No -Bleeding Controlled with Pressure Pressure -Offloading No Yes -Type of Offloading Surgical Shoe -Treatment Response Procedure Tolerated Well -Debridement - Subq, 1st 20sq cm Yes Yes Pain Scale: 0-10 Numeric Is Patient Pain Free? Yes Yes - Nurse 3 - General Ulcer D/C NN Start: 04/05/20 10:42 Freq: Status: Active Protocol: Activity Type Activity Date Activity User E-Sign Co-Sign Detail Recorded Client Recorded Date Recorded By Document 04/05/20 11:29 DL [id number] 04/05/20 11:33 DL Document 04/12/20 10:42 JAUN [id number] 04/12/20 10:43 JF 04/05/20 04/12/20 11:29 10:42 Wound Care Nurse 3 #2 L Ant Ankle -Ulcer Cleansing Rinsed/ Irrigated with Saline -Foul Odor after Cleansing No -Other Dressing hydrogel/ padding -Primary Dressing Covered/Secured with Dry Gauze & Roll Gauze, Secured with Tape #1 L Heel -Ulcer Cleansing Wound Cleanser Wound Cleanser -Foul Odor after Cleansing No No -Primary Dressing Applied Enzymatic -Other Dressing santyl -Primary Dressing Covered/Secured with Dry Gauze & Dry Gauze & Roll Gauze, Roll Gauze, Secured with Secured with Tape Tape -Other Covering padding Left -Compression Wrap Surepress ($) Treatment Response Procedure Tolerated Well Pain Scale: 0-10 Numeric Is Patient Pain Free? Yes Yes WC - Visit Discharge Discharge Condition Stable Stable Ambulatory Status Ambulatory, Walker, Walker Wheelchair Transportation Private Auto Medication Reconcilliation completed & Yes provided to patient/care provider Clinical Summary of Care Provided Yes Wound debrided: heel Laterality: Left Wound Grade/Stage: jeffrey 3 Type of Debridement: Excisional debridement Anesthesia Used: 4% Lidocaine Solution Depth: in the subcutaneous layer Percentage of wound debrided: 100 Instrument Used: 5mm curette Tissue Removed: slough, biofilm, necrotic, fibrous tissue Severity: Fat Layer Exposed Amount of bleeding with debridement: Mild Bleeding Controlled with: Pressure Patient tolerated procedure well Assessment/Plan Active Problems (Last Reviewed 12/15/19 @ 18:[address] Tri Terry DO) Pressure ulcer of left heel, stage 4 (Chronic) Ulcer of left ankle (Acute) Ulcer of left heel (Chronic) Type II diabetes mellitus (Chronic) Assessment: left heel ulcer. left anterior ankle ulcer?healed. DM with hyperglycemia and neuropathy. Hx osteomyelitis left calcaneus Plan: Patient seen and examined with boyfriend present. Patient has history of osteomyelitis with ulcer probing to bone with hospital stay and course of IV antiboitics. Patient wished to avoid surgical resection. Patient has since finished course of antibiotics. There has been progression and regression of the wound since noted. Decrease in fibrotic tissue noted to heel since last visit. heel wound to left foot were sharply debrided without incident. Anterior ankle wound to left foot has healed. Patient encouraged to lotion area skin is very dry as well as to pad area well to prevent future breakdown with dressing changes as area is dry and red from irritation. Patient to continue offloading heel. Patient has noted improvement and wound appearance and decreasing fibrotic tissue with application of Santyl. Patient has offloaded heel surgical shoe and prevalon boot for offloading. Patient had recent LEAS showing a left RONIT of 1.2 and TBI of 0.74 with triphasic waveforms. Discussed importance of offloading, blood sugar control, diet, and proper wound care to optimize healing potential. Discussed seeing a intelligence operations specialist for education on proper nutrition. Patient relates she saw one last year. Continue wound care daily. Educated patient on signs and symptoms of infection to watch out for and to contact office or go to ED if seen. Also discussed potential for HBO therapy if wound stalls out again. Today application of epicord #1 was applied after sharp debridement which was well tolerated and verbal consent by the patient for the procedure and application. This was secured with wound veil and steri strips. 4x4, kerlix gabriela were then applied. Anterior ankle was well padded and moisturized. Patient to follow up in 1 week
--- NOTE | 2020-04-26 09:38 | WC ---
Patient called asking if Dr Brown could order her prescriptions for pain since she wasn't able to get in to see Dr Phelps. She states to ask by Lenin if Dr Brown could order this for her. When I asked what she takes Tramadol and Lyrica for she states it's for hand pain that occurred from a work accident. I spoke to Dr Brown and she is not able to order this for her. Advised patient to follow-up with pain management and has been rescheduled with [facility] for next Saturday. She was instructed on dressing changes for this next week and she verbalized understanding.
== END 2020-05-01 23:59 ==
LOC: WC 10:30
PROVIDERS: PCP Family Medicine; Referring Provider Podiatrist; Visit Provider Podiatrist Foot & Ankle Surgery
DX: E11.621 Type 2 diabetes mellitus with foot ulcer (principal); L89.624 Pressure ulcer of left heel, stage 4; E11.65 Type 2 diabetes mellitus with hyperglycemia; Z87.820 Personal history of traumatic brain injury; L97.424 Non-pressure chronic ulcer of left heel and midfoot with necrosis of bone
CPT/HCPCS: 11042; 15275; Q4187

== ENCOUNTER → 2020-05-10 13:58 | Outpatient (CLI) | payer MEDICAID, SELFPAY ==
[2020-05-10 10:00] VITALS: BMI 23.3
[2020-05-10 15:21] LABS: Amphetamine Urine VISTA NEGATIVE (<1000 ng/mL); Barbiturate Urine VISTA NEGATIVE (< 200 ng/mL); Benzodiazepine Urine VISTA NEGATIVE (< 200 ng/mL); Cocaine Urine VISTA NEGATIVE (< 300 ng/mL); Ecstacy Urine VISTA NEGATIVE (< 500 ng/mL); Methadone Urine VISTA NEGATIVE (< 300 ng/mL); PCP Urine VISTA NEGATIVE (< 25 ng/mL); THC Urine VISTA NEGATIVE (< 50 ng/mL); Vista UDS pH Range 6
== END ==
PROVIDERS: PCP Family Medicine; Referring Provider Anesthesiology Pain Medicine; Visit Provider Anesthesiology Pain Medicine
DX: F11.20 Opioid dependence, uncomplicated (principal)
CPT/HCPCS: 80307

== ENCOUNTER 2020-05-24 11:30 | Outpatient (RCR) | payer MEDICAID, SELFPAY ==
[2020-05-02 00:34] VITALS: BP 131/76; PULSE 77; RESP 18; TEMP 36.4
--- NOTE | 2020-05-03 12:28 | WC ---
Patient cancelled appt again today. Has cancelled the last 2 weeks and patient has an epicord on. Spoke to Dr Brown and advised patient to remove Epicord and wound veil. Instructed patient to clean ulcer daily with Dial soap or to use Hibiclen or Desirae-hex soap and rinse well with water. When asked if she had a silver dressing she added that she does. Patient is to clean ulcer daily and apply a silver and dry dressing and to keep appt for next Saturday with Dr Brown. She verbalized understanding.
[2020-05-10 10:00] VITALS: BP 149/78; PULSE 83; RESP 18; TEMP 36.6; BMI 23.3
--- NOTE | 2020-05-10 12:31 | PCM.WC.PN ---
(1) Ulcer of left ankle Status: Resolved Qualifiers: Code(s): L97.329 - Non-pressure chronic ulcer of left ankle with unspecified severity (2) Pressure ulcer of left heel, stage 4 Status: Chronic Code(s): L89.624 - Pressure ulcer of left heel, stage 4 (3) Type II diabetes mellitus Status: Chronic Qualifiers: Code(s): E11.9 - Type 2 diabetes mellitus without complications Type of Wound Date of Service: 05/10/20 Chief Complaint: left heel ulcer. left ankle ulcer- healed History of Wound: In October 2019, patient had rubbing in shoes while shopping which led to a blister that developed into an ulceration. Patient was then seen in my office for wound care. Patient then became infected and was admitted to the hospital. Patient was noted to have OM on MRI. Patient wanted to avoid surgery so a long term acute care registered nurse course of appropriate IV antibiotics was the treatment chosen. Patient was also noted to have hyperglycemia and has worked with hospitalist and PCP to try to get better control. Blood sugar levels remain elevated. Patient also had LEAS obtained in the hospital which suggested patient had the proper blood flow to allow healing. Patient has since finished long term acute care registered nurse course of antibiotics. Patient has since been seen on a weekly basis in office with progression and regression of wound noted over the weeks. Patient has tried various dressing options including wet to dry and santyl. The most progress was noted with Santyl but patient ran out and was unable to refill due to insurance issues. During which time the wound regressed. She also has an offloading surgical shoe and offloading boot to relieve pressure. Patient care is henceforth being carried out at the wound care center. Patient not currently on any antibiotics. Patient has had some issues getting to the office last few weeks largely due to other transportation issues. Patient relates no other concerns or problems. Progress of Wound: Improved anterior ankle closed and heel ulcer noted to be smaller in size with less depth Subjective: Patient seen and examined bedside. Patient denies any new pedal complaints. Patient denies any nausea, fever, chills, chest pain, shortness of breath, cough, streaking, purulence, vomiting. - Physical Exam Vital Signs Temp Pulse Resp BP 97.8 F 83 18 149/78 H 05/10/20 10:05/10/20 10:05/10/20 10:05/10/20 10:00 General: Alert, Oriented x3 HEENT: Atraumatic Extremities: No clubbing, No cyanosis, Capillary Refill Less than 3 Seconds, No Calf Tenderness, Diminished Peripheral Pulses, Edema - Controlled left lower extremity with compression, Tenderness - Left heel ulcer Skin: Ulcer/ Wound - Left heel ulcer. No malodor, erythema, purulence, probing to bone, streaking, or other signs of infection. Skin is atrophic and hairless. Granular base with serosanguineous drainage after debridement Wound Measurements and Assessment - Nurse 1 - General Ulcer Measurement Start: 05/10/20 10:00 Freq: Status: Active Protocol: Activity Type Activity Date Activity User E-Sign Co-Sign Detail Recorded Client Recorded Date Recorded By Document 05/10/20 10:00 [facility] [id number] 05/10/20 10:07 [facility] 05/10/20 10:00 Wound Center Nurse 1 [Ulcer Assessment] #1 L Heel -Combined with other wound No -Current Size (cm) - Length 3.3 -Current Size (cm) - Width 2.4 -Current Size (cm) - Depth 0.2 -Total Square Cm 7.92 -Photo Taken No -Epithelialization None Present -Tunneling No -Undermining/Tunneling No -Circular Undermining No -Exudate Amt Medium -Exudate Type Serosanguineous -Wound Margin Distinct, Outline Attached -Granulation Amt Medium (34-66%) -Granulation Quality Red -Slough/Fibrin Yes -Necrosis Amt Medium (34-66%) -Necrotic Tissue Type Adherent Slough -Texture (Bren-wound Skin Appearance) Assessed, Scarring -Moisture (Bren-wound Skin Appearance Assessed,Dry/ ) Scaly -Color (Bren-wound Skin Appearance) Assessed -Temperature (Bren-wound Skin No Abnormality Appearance) (Pt Warm) -Tenderness on Palpation (Bren-wound No Skin Appearance) -Ulcer Cleansing Rinsed/ Irrigated with Saline -Foul Odor after Cleansing No -Anesthetic Used 4% Lidocaine Solution - Nurse 2 - General Ulcer CM Notes Start: 05/10/20 10:00 Freq: Status: Active Protocol: Activity Type Activity Date Activity User E-Sign Co-Sign Detail Recorded Client Recorded Date Recorded By Document 05/10/20 10:53 [id number] 05/10/20 11:02 05/10/20 10:53 Wound Center Nurse 2 [Procedure/Treatment] -Time 10:53 -Correct Patient Yes -Correct Side, Site, Position Yes -Correct Procedure Yes -Procedure Performed Yes -Type of Procedure Debridement -Clinical Debridement Subcutaneous -Tissue Removed Subcutaneous -Post Debridement (cm) - Length 3 -Post Debridement (cm) - Width 2.7 -Post Debridement (cm) - Depth 0.3 -Total Square (Post) (cm) 8.1 -Area of Debridement (cm) - Length 3 -Area of Debridement (cm) - Width 2.7 -Total Square (Area) (cm) 8.1 -Tunneling No -Undermining/Tunneling No -Circular Undermining No -Wound/Ulcer Outcome Not Healed -Ulcer Cleansing Rinsed/ Irrigated with Saline -Foul Odor after Cleansing No -Bioengineered Tissue Yes -Type of Bioengineered Tissue Epicord -Expiration Date 07/30/24 -Product Lot Number [id number] -Percent Used 100 -Lot number of Saline Used [id number] -Bleeding Controlled with Pressure -Offloading Yes -Type of Offloading Surgical Shoe -Treatment Response Procedure Tolerated Well -Debridement - Subq, 1st 20sq cm No -Apply Skin Sub - 1st 25 sq cm - Feet 1 -Epicord (per sq cm) 6 [See Physician Procedure note for Specifics] Pain Scale: 0-10 Numeric [Pain] -Is Patient Pain Free? Yes - Nurse 3 - General Ulcer D/C NN Start: 05/10/20 10:00 Freq: Status: Active Protocol: Activity Type Activity Date Activity User E-Sign Co-Sign Detail Recorded Client Recorded Date Recorded By Document 05/10/20 11:15 [id number] 05/10/20 11:20 DL 05/10/20 11:15 Wound Care Nurse 3 [Wound Dressing] #1 L Heel -Foul Odor after Cleansing No -Other Dressing Epicord -Primary Dressing Covered/Secured Dry Gauze & with Roll Gauze, Secured with Tape [Compression Applied] Left -Compression Wrap Surepress ($) -Other stockinette [Post Procedure Tolerated] -Treatment Response Procedure Tolerated Well Pain Scale: 0-10 Numeric [Pain] -Is Patient Pain Free? Yes - Visit Discharge [Visit Discharge Information] -Discharge Condition Stable -Ambulatory Status Ambulatory, Walker -Transportation Private Auto Musculoskeletal: Muscle Wasting, Tenderness - Left heel ulcer improved Neurological: - - Lack of epicritic sensation consistent with neuropathy Psych/Mental Status: Normal Affect, Appropriate Debridement Note Post-Debridement Measurements/Treatment WC - Nurse 2 - General Ulcer CM Notes Start: 05/10/20 10:00 Freq: Status: Active Protocol: Activity Type Activity Date Activity User E-Sign Co-Sign Detail Recorded Client Recorded Date Recorded By Document 05/10/20 10:53 JAUN [id number] 05/10/20 11:02 JAUN 05/10/20 10:53 Wound Center Nurse 2 #1 L Heel -Time 10:53 -Correct Patient Yes -Correct Side, Site, Position Yes -Correct Procedure Yes -Procedure Performed Yes -Type of Procedure Debridement -Clinical Debridement Subcutaneous -Tissue Removed Subcutaneous -Post Debridement (cm) - Length 3 -Post Debridement (cm) - Width 2.7 -Post Debridement (cm) - Depth 0.3 -Total Square (Post) (cm) 8.1 -Area of Debridement (cm) - Length 3 -Area of Debridement (cm) - Width 2.7 -Total Square (Area) (cm) 8.1 -Tunneling No -Undermining/Tunneling No -Circular Undermining No -Wound/Ulcer Outcome Not Healed -Ulcer Cleansing Rinsed/ Irrigated with Saline -Foul Odor after Cleansing No -Bioengineered Tissue Yes -Type of Bioengineered Tissue Epicord -Expiration Date 07/30/24 -Product Lot Number [id number] -Percent Used 100 -Lot number of Saline Used [id number] -Bleeding Controlled with Pressure -Offloading Yes -Type of Offloading Surgical Shoe -Treatment Response Procedure Tolerated Well -Debridement - Subq, 1st 20sq cm No -Apply Skin Sub - 1st 25 sq cm - Feet 1 -Epicord (per sq cm) 6 Pain Scale: 0-10 Numeric Is Patient Pain Free? Yes WC - Nurse 3 - General Ulcer D/C NN Start: 05/10/20 10:00 Freq: Status: Active Protocol: Activity Type Activity Date Activity User E-Sign Co-Sign Detail Recorded Client Recorded Date Recorded By Document 05/10/20 11:15 DL [id number] 05/10/20 11:20 DL 05/10/20 11:15 Wound Care Nurse 3 #1 L Heel -Foul Odor after Cleansing No -Other Dressing Epicord -Primary Dressing Covered/Secured with Dry Gauze & Roll Gauze, Secured with Tape Left -Compression Wrap Surepress ($) -Other stockinette Treatment Response Procedure Tolerated Well Pain Scale: 0-10 Numeric Is Patient Pain Free? Yes WC - Visit Discharge Discharge Condition Stable Ambulatory Status Ambulatory, Walker Transportation Private Auto Wound debrided: heel Laterality: Left Wound Grade/Stage: Glasgow 3 Type of Debridement: Excisional debridement Anesthesia Used: 4% Lidocaine Solution Depth: in the subcutaneous layer Percentage of wound debrided: 100 Instrument Used: #15 blade Tissue Removed: Tissue removed includes fibrous, devitalized, biofilm, and slough tissue Severity: Fat Layer Exposed Amount of bleeding with debridement: Mild Bleeding Controlled with: Pressure Patient tolerated procedure well Assessment/Plan Assessment: left heel ulcer. left anterior ankle ulcer?healed. DM with hyperglycemia and neuropathy. Hx osteomyelitis left calcaneus Plan: Patient seen and examined with boyfriend present. Patient has history of osteomyelitis with ulcer probing to bone with hospital stay and course of IV antiboitics. Patient wished to avoid surgical resection. Patient has since finished course of antibiotics. There has been progression and regression of the wound since noted. Decrease in fibrotic tissue noted to heel since last visit. heel wound to left foot were sharply debrided without incident. Anterior ankle wound to left foot has healed. Patient encouraged to lotion area skin is very dry as well as to pad area well to prevent future breakdown with dressing changes as area is dry and red from irritation. Patient to continue offloading heel. Patient has offloaded heel surgical shoe and prevalon boot for offloading. Patient had recent LEAS showing a left RONIT of 1.2 and TBI of 0.74 with triphasic waveforms. Discussed importance of offloading, blood sugar control, diet, and proper wound care to optimize healing potential. Discussed seeing a log cooker for education on proper nutrition. Patient relates she saw one last year. Continue wound care. Educated patient on signs and symptoms of infection to watch out for and to contact office or go to ED if seen. Also discussed potential for HBO therapy if wound stalls out again. Today application of epicord #2 was applied after sharp debridement which was well tolerated and verbal consent by the patient for the procedure and application. This was secured with Adaptic touch and steri strips. 4x4, kerlix gabriela were then applied. Anterior ankle was well padded and moisturized. Patient noted to have missed last 2 office visits due to issues with transportation and weather. Patient was called after missing appointment last week instructed to remove graft and proper wound care. Patient and boyfriend were able to clean the wound without any issues. We will continue grafts at this time. Patient to follow up in 1 week
[2020-05-24 11:28] VITALS: BP 130/61; PULSE 74; RESP 22; TEMP 37.1; BMI 23.3
--- NOTE | 2020-05-24 23:42 | PCM.WC.PN ---
(1) Ulcer of left ankle Status: Resolved Qualifiers: Code(s): L97.329 - Non-pressure chronic ulcer of left ankle with unspecified severity (2) Pressure ulcer of left heel, stage 4 Status: Chronic Code(s): L89.624 - Pressure ulcer of left heel, stage 4 (3) Type II diabetes mellitus Status: Chronic Qualifiers: Diabetes mellitus complication detail: with polyneuropathy Code(s): E11.9 - Type 2 diabetes mellitus without complications Type of Wound Date of Service: 05/24/20 Chief Complaint: left heel ulcer. left ankle ulcer- healed History of Wound: In October 2019, patient had rubbing in shoes while shopping which led to a blister that developed into an ulceration. Patient was then seen in my office for wound care. Patient then became infected and was admitted to the hospital. Patient was noted to have OM on MRI. Patient wanted to avoid surgery so a fci course of appropriate IV antibiotics was the treatment chosen. Patient was also noted to have hyperglycemia and has worked with hospitalist and PCP to try to get better control. Blood sugar levels remain elevated. Patient also had LEAS obtained in the hospital which suggested patient had the proper blood flow to allow healing. 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 Patient has since been seen on a weekly basis in office with progression and regression of wound noted over the weeks. Patient has tried various dressing options including wet to dry and santyl. The most progress was noted with Santyl but patient ran out and was unable to refill due to insurance issues. During which time the wound regressed. She also has an offloading surgical shoe and offloading boot to relieve pressure. Patient care is henceforth being carried out at the wound care center. Patient not currently on any antibiotics. Patient has had some issues getting to the office last few weeks largely due to other transportation issues and the weather. Patient relates no other concerns or problems. Patient has since began skin graft aplications Progress of Wound: heel ulcer noted to be smaller in size with less depth Subjective: Patient seen and examined resting comfortably. Patient denies any new pedal complaints. Patient denies any nausea, fever, chills, chest pain, shortness of breath, cough, streaking, purulence, vomiting. - Physical Exam Vital Signs Temp Pulse Resp BP 98.7 F 74 22 H 130/61 H 05/24/20 11:28 05/24/20 11:28 05/24/20 11:28 05/24/20 11:28 General: Alert, Oriented x3 HEENT: Atraumatic Extremities: No clubbing, No cyanosis, Capillary Refill Less than 3 Seconds, No Calf Tenderness, Edema - mild, Peripheral Pulses Normal, Tenderness - ulcer site Skin: Ulcer/ Wound - left heel. No malodor, erythema, purulence, probing to bone, streaking, or other signs of infection. Skin is atrophic and hairless. Granular base with serosanguineous drainage after debridement. Less depth noted, - - anterior left rach dry skin and mild noninfectious but irritated redness noted Wound Measurements and Assessment WC - Nurse 1 - General Ulcer Measurement Start: 05/10/20 10:00 Freq: Status: Active Protocol: Activity Type Activity Date Activity User E-Sign Co-Sign Detail Recorded Client Recorded Date Recorded By Document 05/24/20 11:28 DL [id number] 05/24/20 11:40 DL 05/24/20 11:28 Wound Center Nurse 1 [Ulcer Assessment] #1 L Heel -Current Size (cm) - Length 3 -Current Size (cm) - Width 2.7 -Current Size (cm) - Depth 0.2 -Total Square Cm 8.1 -Photo Taken No -Exudate Amt Medium -Exudate Type Serosanguineous -Wound Margin Distinct, Outline Attached -Granulation Amt Small (1-33%) -Granulation Quality Spencer -Necrosis Amt Large (67-100%) -Necrotic Tissue Type Adherent Slough -Structure Exposed N/A -Texture (Bren-wound Skin Appearance) Scarring -Moisture (Bren-wound Skin Appearance Dry/Scaly ) -Color (Bren-wound Skin Appearance) No Abnormality -Temperature (Bren-wound Skin No Abnormality Appearance) (Pt Warm) -Tenderness on Palpation (Bren-wound No Skin Appearance) -Ulcer Cleansing Rinsed/ Irrigated with Saline -Foul Odor after Cleansing No -Anesthetic Used 4% Lidocaine Solution WC - Nurse 2 - General Ulcer CM Notes Start: 05/10/20 10:00 Freq: Status: Active Protocol: Activity Type Activity Date Activity User E-Sign Co-Sign Detail Recorded Client Recorded Date Recorded By Document 05/24/20 12:16 JAUN [id number] 05/24/20 12:22 JAUN 05/24/20 12:16 Wound Center Nurse 2 [Procedure/Treatment] -Time 12:16 -Correct Patient Yes -Correct Side, Site, Position Yes -Correct Procedure Yes -Procedure Performed Yes -Type of Procedure Debridement -Clinical Debridement Subcutaneous -Tissue Removed Subcutaneous -Post Debridement (cm) - Length 3 -Post Debridement (cm) - Width 2 -Post Debridement (cm) - Depth 0.2 -Total Square (Post) (cm) 6 -Area of Debridement (cm) - Length 3 -Area of Debridement (cm) - Width 2 -Total Square (Area) (cm) 6 -Tunneling No -Undermining/Tunneling No -Circular Undermining No -Wound/Ulcer Outcome Not Healed -Ulcer Cleansing Rinsed/ Irrigated with Saline -Foul Odor after Cleansing No -Bioengineered Tissue Yes -Type of Bioengineered Tissue Epifix Mesh -Expiration Date 12/30/24 -Product Lot Number [id number] -Percent Used 100 -Lot number of Saline Used [id number] -Bleeding Controlled with Pressure -Offloading No -Treatment Response Procedure Tolerated Well -Debridement - Subq, 1st 20sq cm No -Apply Skin Sub - 1st 25 sq cm - Legs 1 -Epifix Mesh (per sq cm) 11 [See Physician Procedure note for Specifics] Pain Scale: 0-10 Numeric [Pain] -Is Patient Pain Free? Yes Musculoskeletal: Tenderness - mild to heel ulcer Neurological: - - diminished eicritic sensation Psych/Mental Status: Normal Affect, Appropriate Debridement Note Post-Debridement Measurements/Treatment WC - Nurse 2 - General Ulcer CM Notes Start: 05/10/20 10:00 Freq: Status: Active Protocol: Activity Type Activity Date Activity User E-Sign Co-Sign Detail Recorded Client Recorded Date Recorded By Document 05/10/20 10:53 [id number] 05/10/20 11:02 Document 05/24/20 12:16 JF [id number] 05/24/20 12:22 05/10/20 05/24/20 10:53 12:16 Wound Center Nurse 2 #1 L Heel -Time 10:53 12:16 -Correct Patient Yes Yes -Correct Side, Site, Position Yes Yes -Correct Procedure Yes Yes -Procedure Performed Yes Yes -Type of Procedure Debridement Debridement -Clinical Debridement Subcutaneous Subcutaneous -Tissue Removed Subcutaneous Subcutaneous -Post Debridement (cm) - Length 3 3 -Post Debridement (cm) - Width 2.7 2 -Post Debridement (cm) - Depth 0.3 0.2 -Total Square (Post) (cm) 8.1 6 -Area of Debridement (cm) - Length 3 3 -Area of Debridement (cm) - Width 2.7 2 -Total Square (Area) (cm) 8.1 6 -Tunneling No No -Undermining/Tunneling No No -Circular Undermining No No -Wound/Ulcer Outcome Not Healed Not Healed -Ulcer Cleansing Rinsed/ Rinsed/ Irrigated with Irrigated with Saline Saline -Foul Odor after Cleansing No No -Bioengineered Tissue Yes Yes -Type of Bioengineered Tissue Epicord Epifix Mesh -Expiration Date 07/30/24 12/30/24 -Product Lot Number [id number] -Percent Used 100 100 -Lot number of Saline Used [id number] -Bleeding Controlled with Pressure Pressure -Offloading Yes No -Type of Offloading Surgical Shoe -Treatment Response Procedure Procedure Tolerated Well Tolerated Well -Debridement - Subq, 1st 20sq cm No No -Apply Skin Sub - 1st 25 sq cm - Legs 1 -Apply Skin Sub - 1st 25 sq cm - Feet 1 -Epicord (per sq cm) 6 -Epifix Mesh (per sq cm) 11 Pain Scale: 0-10 Numeric Is Patient Pain Free? Yes Yes - Nurse 3 - General Ulcer D/C NN Start: 05/10/20 10:00 Freq: Status: Active Protocol: Activity Type Activity Date Activity User E-Sign Co-Sign Detail Recorded Client Recorded Date Recorded By Document 05/10/20 11:15 DL [id number] 05/10/20 11:20 DL 05/10/20 11:15 Wound Care Nurse 3 #1 L Heel -Foul Odor after Cleansing No -Other Dressing Epicord -Primary Dressing Covered/Secured with Dry Gauze & Roll Gauze, Secured with Tape Left -Compression Wrap Surepress ($) -Other stockinette Treatment Response Procedure Tolerated Well Pain Scale: 0-10 Numeric Is Patient Pain Free? Yes - Visit Discharge Discharge Condition Stable Ambulatory Status Ambulatory, Walker Transportation Private Auto Wound debrided: heel Laterality: Left Wound Grade/Stage: wager 3 Type of Debridement: Excisional debridement Anesthesia Used: 4% Lidocaine Solution Depth: in the subcutaneous layer Percentage of wound debrided: 100 Instrument Used: 3mm curette Tissue Removed: Tissue removed includes fibrous, devitalized, biofilm, and slough tissue Severity: Fat Layer Exposed Amount of bleeding with debridement: Mild Bleeding Controlled with: Pressure Patient tolerated procedure well Assessment/Plan Active Problems (Last Reviewed 12/15/19 @ 18:[address] Tri Terry, DO) Pressure ulcer of left heel, stage 4 (Chronic) Type II diabetes mellitus (Chronic) Assessment: left heel ulcer. left anterior ankle ulcer?healed. DM with hyperglycemia and neuropathy. Hx osteomyelitis left calcaneus Plan: Patient seen and examined with boyfriend present. Patient has history of osteomyelitis with ulcer probing to bone with hospital stay and course of IV antiboitics. Patient wished to avoid surgical resection. Patient has since finished course of antibiotics. There has been progression and regression of the wound since noted. Decrease in fibrotic tissue noted to heel since last visit. heel wound to left foot were sharply debrided without incident. Anterior ankle wound to left foot has healed. Patient encouraged to lotion area skin is very dry as well as to pad area well to prevent future breakdown with dressing changes as area is dry and red from irritation. Patient to continue offloading heel. Patient has offloaded heel surgical shoe and prevalon boot for offloading. Patient had recent LEAS showing a left RONIT of 1.2 and TBI of 0.74 with triphasic waveforms. Discussed importance of offloading, blood sugar control, diet, and proper wound care to optimize healing potential. Discussed seeing a grain wafer machine operator for education on proper nutrition. Patient relates she saw one last year. Continue wound care. Educated patient on signs and symptoms of infection to watch out for and to contact office or go to ED if seen. Also discussed potential for HBO therapy if wound stalls out again. Today application of epifix #3 was applied after sharp debridement which was well tolerated and verbal consent by the patient for the procedure and application. This was secured with Adaptic touch and steri strips. 4x4, kerlix gabriela were then applied. Anterior ankle was well padded and moisturized. Patient noted to have missed last office visits due to weather. We will continue grafts at this time. Patient to follow up in 1 week. This note was generated with [employer] dictation software. It may contain incorrect words, spelling, and punctuation that were not noted in checking the note before signing.
== END 2020-05-29 23:59 ==
LOC: WC 11:30
PROVIDERS: PCP Family Medicine; Referring Provider Podiatrist; Visit Provider Podiatrist Foot & Ankle Surgery
DX: L89.624 Pressure ulcer of left heel, stage 4 (principal); E11.65 Type 2 diabetes mellitus with hyperglycemia; E11.40 Type 2 diabetes mellitus with diabetic neuropathy, unspecified; Z87.820 Personal history of traumatic brain injury
CPT/HCPCS: 15271; 15275; 80307; Q4186; Q4187

== ENCOUNTER 2020-06-28 10:15 | Outpatient (RCR) | payer MEDICAID, SELFPAY ==
[2020-05-30 00:30] VITALS: BP 130/61; PULSE 74; RESP 22; TEMP 37.1
[2020-05-31 10:48] VITALS: BP 140/87; PULSE 90; RESP 16; TEMP 36.2; BMI 23.3
--- NOTE | 2020-05-31 11:05 | PCM.WC.PN ---
(1) Pressure ulcer of left heel, stage 4 Status: Chronic Code(s): L89.624 - Pressure ulcer of left heel, stage 4 (2) Type II diabetes mellitus Status: Chronic Qualifiers: Diabetes mellitus complication status: with neurologic complications Diabetes mellitus complication detail: with polyneuropathy Code(s): E11.9 - Type 2 diabetes mellitus without complications Type of Wound Date of Service: 05/31/20 Chief Complaint: left heel ulcer. left ankle ulcer- healed History of Wound: In October 2019, patient had rubbing in shoes while shopping which led to a blister that developed into an ulceration. Patient was then seen in my office for wound care. Patient then became infected and was admitted to the hospital. Patient was noted to have OM on MRI. Patient wanted to avoid surgery so a shelter course of appropriate IV antibiotics was the treatment chosen. Patient was also noted to have hyperglycemia and has worked with hospitalist and PCP to try to get better control. Blood sugar levels remain elevated. Patient also had LEAS obtained in the hospital which suggested patient had the proper blood flow to allow healing. Patient has since finished shelter course of antibiotics. Patient has since been seen on a weekly basis in office with progression and regression of wound noted over the weeks. Patient has tried various dressing options including wet to dry and santyl. The most progress was noted with Santyl but patient ran out and was unable to refill due to insurance issues. During which time the wound regressed. She also has an offloading surgical shoe and offloading boot to relieve pressure. Patient care is henceforth being carried out at the wound care center. Patient not currently on any antibiotics. Patient has had some issues getting to the office last few weeks largely due to other transportation issues and the weather. Patient relates no other concerns or problems. Patient has since began skin graft aplications Progress of Wound: heel ulcer noted to be smaller in size with less depth, improved Subjective: Patient seen and examined resting comfortably. Patient denies any new pedal complaints. Patient denies any nausea, fever, chills, chest pain, shortness of breath, cough, streaking, purulence, vomiting.. Patient is getting frustrated being nonweightbearing but still compliant. - Physical Exam Vital Signs Temp Pulse Resp BP 97.2 F L 90 16 140/87 H 05/31/20 10:48 05/31/20 10:48 05/31/20 10:48 05/31/20 10:48 General: Alert, Oriented x3 HEENT: Atraumatic Extremities: No clubbing, No cyanosis, Capillary Refill Less than 3 Seconds, No Calf Tenderness, Diminished Peripheral Pulses, Edema - Improved, minimal Skin: Ulcer/ Wound - Plantar left heel. No malodor, erythema, purulence, probing to bone, streaking, or other signs of infection. Skin is atrophic and hairless. Granular base with serosanguineous drainage after debridement Wound Measurements and Assessment WC - Nurse 1 - General Ulcer Measurement Start: 05/31/20 10:41 Freq: Status: Active Protocol: Activity Type Activity Date Activity User E-Sign Co-Sign Detail Recorded Client Recorded Date Recorded By Document 05/31/20 10:48 JAUN [id number] 05/31/20 10:49 JAUN 05/31/20 10:48 Wound Center Nurse 1 [Ulcer Assessment] #1 L Heel -Combined with other wound No -Current Size (cm) - Length 2.6 -Current Size (cm) - Width 1.5 -Current Size (cm) - Depth 0.5 -Total Square Cm 3.90 -Photo Taken No -Epithelialization Medium 34-66% -Tunneling No -Undermining/Tunneling No -Circular Undermining No -Exudate Amt Medium -Exudate Type Serosanguineous -Wound Margin Flat & Intact -Granulation Amt Large (67-100%) -Granulation Quality Red -Slough/Fibrin Yes -Necrosis Amt Medium (34-66%) -Necrotic Tissue Type Adherent Slough -Structure Exposed N/A -Texture (Bren-wound Skin Appearance) Assessed -Moisture (Bren-wound Skin Appearance Assessed,Dry/ ) Scaly -Color (Bren-wound Skin Appearance) Assessed -Temperature (Bren-wound Skin No Abnormality Appearance) (Pt Warm) -Tenderness on Palpation (Bren-wound Yes Skin Appearance) -Ulcer Cleansing Wound Cleanser -Foul Odor after Cleansing No -Anesthetic Used 4% Lidocaine Solution [Edema Assessment] -Lower Limb Edema Present No WC - Nurse 2 - General Ulcer CM Notes Start: 05/31/20 10:41 Freq: Status: Active Protocol: Activity Type Activity Date Activity User E-Sign Co-Sign Detail Recorded Client Recorded Date Recorded By Document 05/31/20 10:57 JF [id number] 05/31/20 11:03 05/31/20 10:57 Wound Center Nurse 2 [Procedure/Treatment] #1 L Heel -Time 11:01 -Correct Patient Yes -Correct Side, Site, Position Yes -Correct Procedure Yes -Procedure Performed Yes -Type of Procedure Debridement -Clinical Debridement Subcutaneous -Tissue Removed Subcutaneous -Post Debridement (cm) - Length 2.7 -Post Debridement (cm) - Width 1.5 -Post Debridement (cm) - Depth 0.4 -Total Square (Post) (cm) 4.05 -Area of Debridement (cm) - Length 2.7 -Area of Debridement (cm) - Width 1.5 -Total Square (Area) (cm) 4.05 -Tunneling No -Undermining/Tunneling No -Circular Undermining No -Wound/Ulcer Outcome Not Healed -Ulcer Cleansing Rinsed/ Irrigated with Saline -Foul Odor after Cleansing No -Bioengineered Tissue Yes -Type of Bioengineered Tissue Epifix -Expiration Date 11/30/24 -Product Lot Number [id number] -Percent Used 100 -Lot number of Saline Used [id number] -Bleeding Controlled with Pressure -Offloading No -Treatment Response Procedure Tolerated Well -Debridement - Subq, 1st 20sq cm No -Apply Skin Sub - 1st 25 sq cm - Feet 1 -Epifix (per sq cm) 4 [See Physician Procedure note for Specifics] Pain Scale: 0-10 Numeric [Pain] -Is Patient Pain Free? Yes Musculoskeletal: Muscle Wasting, Tenderness - Minimal Neurological: - - Lack of epicritic sensation consistent with neuropathy Psych/Mental Status: Normal Affect, Appropriate Debridement Note Post-Debridement Measurements/Treatment WC - Nurse 2 - General Ulcer CM Notes Start: 05/31/20 10:41 Freq: Status: Active Protocol: Activity Type Activity Date Activity User E-Sign Co-Sign Detail Recorded Client Recorded Date Recorded By Document 05/31/20 10:57 [id number] 05/31/20 11:03 05/31/20 10:57 Wound Center Nurse 2 #1 L Heel -Time 11:01 -Correct Patient Yes -Correct Side, Site, Position Yes -Correct Procedure Yes -Procedure Performed Yes -Type of Procedure Debridement -Clinical Debridement Subcutaneous -Tissue Removed Subcutaneous -Post Debridement (cm) - Length 2.7 -Post Debridement (cm) - Width 1.5 -Post Debridement (cm) - Depth 0.4 -Total Square (Post) (cm) 4.05 -Area of Debridement (cm) - Length 2.7 -Area of Debridement (cm) - Width 1.5 -Total Square (Area) (cm) 4.05 -Tunneling No -Undermining/Tunneling No -Circular Undermining No -Wound/Ulcer Outcome Not Healed -Ulcer Cleansing Rinsed/ Irrigated with Saline -Foul Odor after Cleansing No -Bioengineered Tissue Yes -Type of Bioengineered Tissue Epifix -Expiration Date 11/30/24 -Product Lot Number [id number] -Percent Used 100 -Lot number of Saline Used [id number] -Bleeding Controlled with Pressure -Offloading No -Treatment Response Procedure Tolerated Well -Debridement - Subq, 1st 20sq cm No -Apply Skin Sub - 1st 25 sq cm - Feet 1 -Epifix (per sq cm) 4 Pain Scale: 0-10 Numeric Is Patient Pain Free? Yes Wound debrided: heel Laterality: Left Wound Grade/Stage: History of pressure 4, currently pressure 3 Type of Debridement: Excisional debridement Anesthesia Used: 4% Lidocaine Solution Depth: in the subcutaneous layer Percentage of wound debrided: 100 Instrument Used: 5mm curette Tissue Removed: Tissue removed includes fibrous, devitalized, biofilm, and slough tissue Severity: Fat Layer Exposed Amount of bleeding with debridement: Mild Bleeding Controlled with: Pressure Patient tolerated procedure well Assessment/Plan Assessment: left heel ulcer. left anterior ankle ulcer?healed. DM with hyperglycemia and neuropathy. Hx osteomyelitis left calcaneus Plan: Patient seen and examined with boyfriend present. Patient has history of osteomyelitis with ulcer probing to bone with hospital stay and course of IV antiboitics. Patient wished to avoid surgical resection. Patient has since finished course of antibiotics. There has been progression and regression of the wound since noted. Decrease in fibrotic tissue noted to heel since last visit. heel wound to left foot were sharply debrided without incident. Anterior ankle wound to left foot has healed. Patient encouraged to lotion area skin is very dry as well as to pad area well to prevent future breakdown with dressing changes as area is dry and red from irritation. Patient to continue offloading heel. Patient has offloaded heel surgical shoe and prevalon boot for offloading. Patient had recent LEAS showing a left RONIT of 1.2 and TBI of 0.74 with triphasic waveforms. Discussed importance of offloading, blood sugar control, diet, and proper wound care to optimize healing potential. Discussed seeing a aluminum can collector for education on proper nutrition. Patient relates she saw one last year. Continue wound care. Educated patient on signs and symptoms of infection to watch out for and to contact office or go to ED if seen. Also discussed potential for HBO therapy if wound stalls out again. Today application of epifix #4 was applied after sharp debridement which was well tolerated and verbal consent by the patient for the procedure and application. This was secured with veil and steri strips. 4x4, kerlix gabriela were then applied. Anterior ankle was well padded and moisturized. We will continue grafts at this time. Patient to follow up in 1 week. This note was generated with [employer] dictation software. It may contain incorrect words, spelling, and punctuation that were not noted in checking the note before signing.
[2020-06-07 10:46] VITALS: BP 172/90; PULSE 86; RESP 16; TEMP 36.4; BMI 23.3
--- NOTE | 2020-06-07 12:45 | PN.PCM_ITS ---
(1) Pressure ulcer of left heel, stage 4 Status: Chronic Code(s): L89.624 - Pressure ulcer of left heel, stage 4 (2) Type II diabetes mellitus Status: Chronic Qualifiers: Diabetes mellitus complication status: with neurologic complications Diabetes mellitus complication detail: with polyneuropathy Code(s): E11.9 - Type 2 diabetes mellitus without complications Type of Wound Date of Service: 06/07/20 Chief Complaint: left heel ulcer. left ankle ulcer- healed History of Wound: In October 2019, patient had rubbing in shoes while shopping which led to a blister that developed into an ulceration. Patient was then seen in my office for wound care. Patient then became infected and was admitted to [facility]. Patient was noted to have OM on MRI. Patient wanted to avoid surgery so a long-term course of appropriate IV antibiotics was the treatment chosen. Patient was also noted to have hyperglycemia and has worked with hospitalist and PCP to try to get better control. Blood sugar levels remain elevated. Patient also had LEAS obtained in the hospital which suggested patient had the proper blood flow to allow healing. Patient has since finished long-term course of antibiotics. Patient has since been seen on a weekly basis in office with progression and regression of wound noted over the weeks. Patient has tried various dressing options including wet to dry and santyl. The most progress was noted with Santyl but patient ran out and was unable to refill due to insurance issues. During which time the wound regressed. She also has an offloading surgical shoe and offloading boot to relieve pressure. Patient care is henceforth being carried out at the wound care center. Patient not currently on any antibiotics. Patient has had some issues getting to the office last few weeks largely due to other transportation issues and the weather. Patient relates no other concerns or problems. Patient has since began skin graft aplications Progress of Wound: heel ulcer noted to be smaller in size with less depth, improved Subjective: Patient seen and examined resting comfortably. Patient denies any new pedal complaints. Patient denies any nausea, fever, chills, chest pain, shortness of breath, cough, streaking, purulence, vomiting. - Physical Exam Vital Signs Temp Pulse Resp BP 97.6 F L 86 16 172/90 H 06/07/20 10:46 06/07/20 10:46 06/07/20 10:46 06/07/20 10:46 General: Alert, Oriented x3 HEENT: Atraumatic Extremities: No clubbing, No cyanosis, Capillary Refill Less than 3 Seconds, No Calf Tenderness, Diminished Peripheral Pulses, Edema - mild, improved Skin: Ulcer/ Wound - posterior heal left. No malodor, erythema, purulence, probing to bone, streaking, or other signs of infection. Skin is atrophic and hairless. Granular base Wound Measurements and Assessment - Nurse 1 - General Ulcer Measurement Start: 05/31/20 10:41 Freq: Status: Active Protocol: Activity Type Activity Date Activity User E-Sign Co-Sign Detail Recorded Client Recorded Date Recorded By Document 06/07/20 10:46 CO [id number] 06/07/20 10:59 MS 06/07/20 10:46 Wound Center Nurse 1 [Ulcer Assessment] #1 L Heel -Current Size (cm) - Length 2 -Current Size (cm) - Width 2.5 -Current Size (cm) - Depth 0.3 -Total Square Cm 5.0 -Exudate Amt Medium -Exudate Type Serosanguineous -Wound Margin Distinct, Outline Attached -Granulation Amt Medium (34-66%) -Slough/Fibrin Yes -Texture (Bren-wound Skin Appearance) No Abnormality -Moisture (Bren-wound Skin Appearance Maceration ) -Color (Bren-wound Skin Appearance) No Abnormality -Foul Odor after Cleansing No -Anesthetic Used 4% Lidocaine Solution - Nurse 3 - General Ulcer D/C NN Start: 05/31/20 10:41 Freq: Status: Active Protocol: Activity Type Activity Date Activity User E-Sign Co-Sign Detail Recorded Client Recorded Date Recorded By Document 06/07/20 11:42 [facility] [id number] 06/07/20 11:43 [facility] 06/07/20 11:42 Wound Care Nurse 3 [Wound Dressing] -Other Dressing EPIFIX -Primary Dressing Covered/Secured Dry Gauze & with Roll Gauze, Secured with Tape -Other Covering DRSG BY Usha VINCENT LPN [Compression Applied] Left -Other PTS OWN SUREPRESS APPLIED BY HER POWER SWITCHBOARD OPERATOR [Post Procedure Tolerated] -Treatment Response Procedure Tolerated Well Pain Scale: 0-10 Numeric [Pain] -Is Patient Pain Free? Yes WC - Visit Discharge [Visit Discharge Information] -Discharge Condition Stable -Ambulatory Status Walker -Transportation Private Auto Musculoskeletal: Muscle Wasting, Tenderness - mild Neurological: - - decreased epicritic sensation Psych/Mental Status: Normal Affect, Appropriate Debridement Note Post-Debridement Measurements/Treatment WC - Nurse 2 - General Ulcer CM Notes Start: 05/31/20 10:41 Freq: Status: Active Protocol: Activity Type Activity Date Activity User E-Sign Co-Sign Detail Recorded Client Recorded Date Recorded By Document 05/31/20 10:57 [id number] 05/31/20 11:03 05/31/20 10:57 Wound Center Nurse 2 #1 L Heel -Time 11:01 -Correct Patient Yes -Correct Side, Site, Position Yes -Correct Procedure Yes -Procedure Performed Yes -Type of Procedure Debridement -Clinical Debridement Subcutaneous -Tissue Removed Subcutaneous -Post Debridement (cm) - Length 2.7 -Post Debridement (cm) - Width 1.5 -Post Debridement (cm) - Depth 0.4 -Total Square (Post) (cm) 4.05 -Area of Debridement (cm) - Length 2.7 -Area of Debridement (cm) - Width 1.5 -Total Square (Area) (cm) 4.05 -Tunneling No -Undermining/Tunneling No -Circular Undermining No -Wound/Ulcer Outcome Not Healed -Ulcer Cleansing Rinsed/ Irrigated with Saline -Foul Odor after Cleansing No -Bioengineered Tissue Yes -Type of Bioengineered Tissue Epifix -Expiration Date 11/30/24 -Product Lot Number [id number] -Percent Used 100 -Lot number of Saline Used [id number] -Bleeding Controlled with Pressure -Offloading No -Treatment Response Procedure Tolerated Well -Debridement - Subq, 1st 20sq cm No -Apply Skin Sub - 1st 25 sq cm - Feet 1 -Epifix (per sq cm) 4 Pain Scale: 0-10 Numeric Is Patient Pain Free? Yes WC - Nurse 3 - General Ulcer D/C NN Start: 05/31/20 10:41 Freq: Status: Active Protocol: Activity Type Activity Date Activity User E-Sign Co-Sign Detail Recorded Client Recorded Date Recorded By Document 05/31/20 11:17 DL [id number] 05/31/20 11:18 DL Document 06/07/20 11:42 [email or web address] [id number] 06/07/20 11:43 BMF 05/31/20 06/07/20 11:17 11:42 Wound Care Nurse 3 #1 L Heel -Foul Odor after Cleansing No -Other Dressing Epifix EPIFIX -Primary Dressing Covered/Secured with Dry Gauze & Dry Gauze & Roll Gauze, Roll Gauze, Secured with Secured with Tape Tape -Other Covering surepress DRSG BY Usha VINCENT LPN Left -Other PTS OWN SUREPRESS APPLIED BY HER POWER SWITCHBOARD OPERATOR Treatment Response Procedure Procedure Tolerated Well Tolerated Well Pain Scale: 0-10 Numeric Is Patient Pain Free? Yes Yes WC - Visit Discharge Discharge Condition Stable Stable Ambulatory Status Ambulatory, Walker Walker Transportation Private Auto Private Auto Notes: Calmoseptine to ant ankle. Wound debrided: heel Laterality: Left Wound Grade/Stage: jeffrey 3 Type of Debridement: Excisional debridement Anesthesia Used: 4% Lidocaine Solution Depth: in the subcutaneous layer Percentage of wound debrided: 100 Instrument Used: 5mm curette Tissue Removed: Tissue removed includes fibrous, devitalized, biofilm, and slough tissue Severity: Fat Layer Exposed Amount of bleeding with debridement: Mild Bleeding Controlled with: Pressure Patient tolerated procedure well Assessment/Plan Active Problems (Last Reviewed 12/15/19 @ 18:[address] Tri Terry, DO) Pressure ulcer of left heel, stage 4 (Chronic) Type II diabetes mellitus (Chronic) Assessment: left heel ulcer. left anterior ankle ulcer?healed. DM with hyperglycemia and neuropathy. Hx osteomyelitis left calcaneus Plan: Patient seen and examined with boyfriend present. Patient has history of osteomyelitis with ulcer probing to bone with hospital stay and course of IV antiboitics. Patient wished to avoid surgical resection. Patient has since finished course of antibiotics. heel wound to left foot were sharply debrided without incident. Anterior ankle wound to left foot has healed. Patient encouraged to lotion area skin is very dry as well as to pad area well to prevent future breakdown with dressing changes as area is dry and red from irritation. Patient to continue offloading heel. Patient has offloaded heel surgical shoe and prevalon boot for offloading. Patient had recent LEAS showing a left RONIT of 1.2 and TBI of 0.74 with triphasic waveforms. Discussed importance of offloading, blood sugar control, diet, and proper wound care to optimize healing potential. Discussed seeing a superintendent seed mill for education on proper nutrition. Patient relates she saw one last year. Continue wound care. Educated patient on signs and symptoms of infection to watch out for and to contact office or go to ED if seen. Today application of epifix was applied after sharp debridement which was well tolerated and verbal consent by the patient for the procedure and application. This was secured with veil and steri strips. 4x4, kerlix gabriela were then applied. Anterior ankle was well padded and moisturized. We will continue grafts at this time. Patient to follow up in 1 week. This note was generated with [employer] dictation software. It may contain incorrect words, spelling, and punctuation that were not noted in checking the note before signing.
[2020-06-14 10:43] VITALS: BP 140/85; PULSE 81; RESP 18; TEMP 36.2; BMI 23.3
--- NOTE | 2020-06-14 11:54 | PCM.WC.PN ---
(1) Pressure ulcer of left heel, stage 4 Status: Chronic Code(s): L89.624 - Pressure ulcer of left heel, stage 4 (2) Type II diabetes mellitus Status: Chronic Qualifiers: Diabetes mellitus complication status: with neurologic complications Diabetes mellitus complication detail: with polyneuropathy Code(s): E11.9 - Type 2 diabetes mellitus without complications Type of Wound Date of Service: 06/14/20 Chief Complaint: left heel ulcer. left ankle ulcer- healed History of Wound: In October 2019, patient had rubbing in shoes while shopping which led to a blister that developed into an ulceration. Patient was then seen in my office for wound care. Patient then became infected and was admitted to the hospital. Patient was noted to have OM on MRI. Patient wanted to avoid surgery so a usp course of appropriate IV antibiotics was the treatment chosen. Patient was also noted to have hyperglycemia and has worked with hospitalist and PCP to try to get better control. Blood sugar levels remain elevated. Patient also had LEAS obtained in the hospital which suggested patient had the proper blood flow to allow healing. Patient has since finished usp course of antibiotics. Patient has since been seen on a weekly basis in office with progression and regression of wound noted over the weeks. Patient has tried various dressing options including wet to dry and santyl. The most progress was noted with Santyl but patient ran out and was unable to refill due to insurance issues. During which time the wound regressed. She also has an offloading surgical shoe and offloading boot to relieve pressure. Patient care is henceforth being carried out at the wound care center. Patient not currently on any antibiotics. Patient has had some issues getting to the office last few weeks largely due to other transportation issues and the weather. Patient relates no other concerns or problems. Patient has since began skin graft aplications Progress of Wound: heel ulcer noted to be smaller in size with less depth, improved Subjective: Patient seen and examined resting comfortably. Patient denies any new pedal complaints. Patient denies any nausea, fever, chills, chest pain, shortness of breath, cough, streaking, purulence, vomiting. - Physical Exam Vital Signs Temp Pulse Resp BP 97.2 F L 81 18 140/85 H 06/14/20 10:43 06/14/20 10:43 06/14/20 10:43 03/16/21 10:43 General: Alert, Oriented x3 HEENT: Atraumatic Extremities: No clubbing, No cyanosis, No edema, Capillary Refill Less than 3 Seconds, No Calf Tenderness, Diminished Peripheral Pulses Skin: Ulcer/ Wound - Left heel wound. No malodor, erythema, purulence, probing to bone, streaking, fluctuation, crepitus, or other signs of infection. Skin is atrophic and hairless. Granular base, - - Anterior left ankle. Female from irritation likely from dressing with some peeling skin. Wound Measurements and Assessment WC - Nurse 1 - General Ulcer Measurement Start: 05/31/20 10:41 Freq: Status: Active Protocol: Activity Type Activity Date Activity User E-Sign Co-Sign Detail Recorded Client Recorded Date Recorded By Document 06/14/20 10:43 DL [id number] 06/14/20 10:51 DL 06/14/20 10:43 Wound Center Nurse 1 [Ulcer Assessment] #1 L Heel -Current Size (cm) - Length 2.4 -Current Size (cm) - Width 2.5 -Current Size (cm) - Depth 0.1 -Total Square Cm 6.00 -Photo Taken No -Exudate Amt Medium -Exudate Type Serosanguineous -Wound Margin Distinct, Outline Attached -Granulation Amt Medium (34-66%) -Granulation Quality [place],Red -Necrosis Amt Medium (34-66%) -Necrotic Tissue Type Adherent Slough -Structure Exposed N/A -Texture (Bren-wound Skin Appearance) Scarring -Moisture (Bren-wound Skin Appearance Maceration ) -Color (Bren-wound Skin Appearance) No Abnormality -Temperature (Bren-wound Skin No Abnormality Appearance) (Pt Warm) -Tenderness on Palpation (Bren-wound No Skin Appearance) -Ulcer Cleansing Wound Cleanser -Foul Odor after Cleansing No -Anesthetic Used 4% Lidocaine Solution [Edema Assessment] -Left Calf (cm) 31.5 -Left Ankle (cm) 20 WC - Nurse 2 - General Ulcer CM Notes Start: 05/31/20 10:41 Freq: Status: Active Protocol: Activity Type Activity Date Activity User E-Sign Co-Sign Detail Recorded Client Recorded Date Recorded By Document 06/14/20 11:25 JAUN [id number] 06/14/20 11:31 JAUN 06/14/20 11:25 Wound Center Nurse 2 [Procedure/Treatment] #1 L Heel -Time 11:26 -Correct Patient Yes -Correct Side, Site, Position Yes -Correct Procedure Yes -Procedure Performed Yes -Type of Procedure Debridement -Clinical Debridement Subcutaneous -Tissue Removed Subcutaneous -Post Debridement (cm) - Length 2.8 -Post Debridement (cm) - Width 1.5 -Post Debridement (cm) - Depth 0.1 -Total Square (Post) (cm) 4.20 -Area of Debridement (cm) - Length 2.8 -Area of Debridement (cm) - Width 1.5 -Total Square (Area) (cm) 4.20 -Tunneling No -Undermining/Tunneling No -Circular Undermining No -Wound/Ulcer Outcome Not Healed -Ulcer Cleansing Rinsed/ Irrigated with Saline -Foul Odor after Cleansing No -Bioengineered Tissue Yes -Type of Bioengineered Tissue Epifix -Expiration Date 12/30/24 -Product Lot Number [id number] -Percent Used 100 -Lot number of Saline Used [id number] -Bleeding Controlled with Pressure -Offloading Yes -Type of Offloading Surgical Shoe -Treatment Response Procedure Tolerated Well -Debridement - Subq, 1st 20sq cm No -Apply Skin Sub - 1st 25 sq cm - Feet 1 -Epifix (per sq cm) 4 [See Physician Procedure note for Specifics] Pain Scale: 0-10 Numeric [Pain] -Is Patient Pain Free? Yes - Nurse 3 - General Ulcer D/C NN Start: 05/31/20 10:41 Freq: Status: Active Protocol: Activity Type Activity Date Activity User E-Sign Co-Sign Detail Recorded Client Recorded Date Recorded By Document 06/14/20 11:40 [facility] [id number] 06/14/20 11:41 [facility] 06/14/20 11:40 Wound Care Nurse 3 [Wound Dressing] #1 L Heel -Other Dressing epifix -Primary Dressing Covered/Secured Dry Gauze & with Roll Gauze, Secured with Tape,Other -Other Covering heel hat [Compression Applied] Left -Other pt's friend applied own surepress and gabriela [Post Procedure Tolerated] -Treatment Response Procedure Tolerated Well Pain Scale: 0-10 Numeric [Pain] -Is Patient Pain Free? Yes - Visit Discharge [Visit Discharge Information] -Discharge Condition Stable -Ambulatory Status Walker -Transportation Private Auto -Accompanied by friend Musculoskeletal: Muscle Wasting, Tenderness - Minimal to ulceration site Neurological: - - Decrease in epicritic sensation consistent with neuropathy Psych/Mental Status: Normal Affect, Appropriate Debridement Note Post-Debridement Measurements/Treatment WC - Nurse 2 - General Ulcer CM Notes Start: 05/31/20 10:41 Freq: Status: Active Protocol: Activity Type Activity Date Activity User E-Sign Co-Sign Detail Recorded Client Recorded Date Recorded By Document 05/31/20 10:57 [id number] 05/31/20 11:03 Document 06/07/20 11:31 [id number] 06/07/20 12:56 Document 06/14/20 11:25 [id number] 06/14/20 11:31 JF 05/31/20 06/07/20 06/14/20 10:57 11:31 11:25 Wound Center Nurse 2 #1 L Heel -Time 11:01 12:55 11:26 -Correct Patient Yes Yes Yes -Correct Side, Site, Position Yes Yes Yes -Correct Procedure Yes Yes Yes -Procedure Performed Yes Yes Yes -Type of Procedure Debridement Debridement Debridement -Clinical Debridement Subcutaneous Subcutaneous Subcutaneous -Tissue Removed Subcutaneous Subcutaneous Subcutaneous -Post Debridement (cm) - Length 2.7 2.9 2.8 -Post Debridement (cm) - Width 1.5 1.7 1.5 -Post Debridement (cm) - Depth 0.4 0.1 0.1 -Total Square (Post) (cm) 4.05 4.93 4.20 -Area of Debridement (cm) - Length 2.7 2.9 2.8 -Area of Debridement (cm) - Width 1.5 1.7 1.5 -Total Square (Area) (cm) 4.05 4.93 4.20 -Tunneling No No No -Undermining/Tunneling No No No -Circular Undermining No No No -Wound/Ulcer Outcome Not Healed Not Healed Not Healed -Ulcer Cleansing Rinsed/ Rinsed/ Rinsed/ Irrigated with Irrigated with Irrigated with Saline Saline Saline -Foul Odor after Cleansing No No No -Bioengineered Tissue Yes Yes Yes -Type of Bioengineered Tissue Epifix Epifix Epifix -Expiration Date 11/30/24 12/30/24 12/30/24 -Product Lot Number [id number] -Percent Used 100 100 100 -Lot number of Saline Used [id number] -Bleeding Controlled with Pressure Pressure -Offloading No Yes -Type of Offloading Surgical Shoe -Treatment Response Procedure Procedure Procedure Tolerated Well Tolerated Well Tolerated Well -Debridement - Subq, 1st 20sq cm No No No -Apply Skin Sub - 1st 25 sq cm - Feet 1 1 1 -Epifix (per sq cm) 4 4 4 Pain Scale: 0-10 Numeric Is Patient Pain Free? Yes Yes Yes - Nurse 3 - General Ulcer D/C NN Start: 05/31/20 10:41 Freq: Status: Active Protocol: Activity Type Activity Date Activity User E-Sign Co-Sign Detail Recorded Client Recorded Date Recorded By Document 05/31/20 11:17 DL [id number] 05/31/20 11:18 DL Document 06/07/20 11:42 [facility] [id number] 06/07/20 11:43 [facility] Document 06/14/20 11:40 [facility] [id number] 06/14/20 11:41 [facility] 05/31/20 06/07/20 06/14/20 11:17 11:42 11:40 Wound Care Nurse 3 #1 L Heel -Foul Odor after Cleansing No -Other Dressing Epifix EPIFIX epifix -Primary Dressing Covered/Secured with Dry Gauze & Dry Gauze & Dry Gauze & Roll Gauze, Roll Gauze, Roll Gauze, Secured with Secured with Secured with Tape Tape Tape,Other -Other Covering surepress DRSG BY Usha VINCENT heel hat FIRE PROTECTION ENGINEER Left -Other PTS OWN pt's friend SUREPRESS applied own APPLIED BY HER surepress and GIS COORDINATOR gabriela Treatment Response Procedure Procedure Procedure Tolerated Well Tolerated Well Tolerated Well Pain Scale: 0-10 Numeric Is Patient Pain Free? Yes Yes Yes - Visit Discharge Discharge Condition Stable Stable Stable Ambulatory Status Ambulatory, Walker Walker Walker Transportation Private Auto Private Auto Private Auto Accompanied by friend Notes: Calmoseptine to ant ankle. Wound debrided: Heel Laterality: Left Wound Grade/Stage: [place] 3 Type of Debridement: Excisional debridement Anesthesia Used: 4% Lidocaine Solution Depth: in the subcutaneous layer Percentage of wound debrided: 100 Instrument Used: 3mm curette Tissue Removed: Tissue removed includes fibrous, devitalized, biofilm, and slough tissue Severity: Fat Layer Exposed Amount of bleeding with debridement: Mild Bleeding Controlled with: Pressure Patient tolerated procedure well Assessment/Plan Active Problems (Last Reviewed 12/15/19 @ 18:[address] Tri Terry, DO) Pressure ulcer of left heel, stage 4 (Chronic) Type II diabetes mellitus (Chronic) Assessment: left heel ulcer. left anterior ankle ulcer?healed. DM with hyperglycemia and neuropathy. Hx osteomyelitis left calcaneus Plan: Patient seen and examined with boyfriend present. Wound noted to have improved in size. Patient has no new pedal complaints. Patient has history of osteomyelitis with ulcer probing to bone with hospital stay and course of IV antiboitics. Patient wished to avoid surgical resection. Patient has since finished course of antibiotics. heel wound to left foot were sharply debrided without incident after verbal consent was obtained. Anterior ankle wound to left foot has healed. Patient encouraged to lotion area skin is very dry as well as to pad area well to prevent future breakdown with dressing changes as area is dry and red from irritation. Patient to continue offloading heel. Patient has offloaded heel surgical shoe and prevalon boot for offloading. Patient had recent LEAS showing a left RONIT of 1.2 and TBI of 0.74 with triphasic waveforms. Discussed importance of offloading, blood sugar control, diet, and proper wound care to optimize healing potential. Discussed seeing a warehouse general laborer for education on proper nutrition. Patient relates she saw one last year. Continue wound care. Educated patient on signs and symptoms of infection to watch out for and to contact office or go to ED if seen. Today application of epifix was applied. I recommend application of advanced wound healing product to the left foot. Prior authorization was confirmed. The indications, benefits, anticipated application and healing time management were reviewed in detail. Verbal consent was obtained in the procedure for today. Site was debrided and graft was applied according to standard protocol and was further secured with a wound veil and Steri-Strips. Anterior ankle was well padded and moisturized. We will continue grafts at this time. Patient to follow up in 1 week. This note was generated with [employer] dictation software. It may contain incorrect words, spelling, and punctuation that were not noted in checking the note before signing.
[2020-06-21 10:08] VITALS: BP 117/73; PULSE 76; RESP 18; TEMP 35.9; BMI 23.3
--- NOTE | 2020-06-21 11:06 | PN.PCM_ITS ---
(1) Pressure ulcer of left heel, stage 4 Status: Chronic Code(s): L89.624 - Pressure ulcer of left heel, stage 4 (2) Type II diabetes mellitus Status: Chronic Qualifiers: Diabetes mellitus complication status: with neurologic complications Diabetes mellitus complication detail: with polyneuropathy Code(s): E11.9 - Type 2 diabetes mellitus without complications Type of Wound Date of Service: 06/21/20 Chief Complaint: left heel ulcer. left ankle ulcer- healed History of Wound: In October 2019, patient had rubbing in shoes while shopping which led to a blister that developed into an ulceration. Patient was then seen in my office for wound care. Patient then became infected and was admitted to [facility]. Patient was noted to have OM on MRI. Patient wanted to avoid surgery so a termite control service representative course of appropriate IV antibiotics was the treatment chosen. Patient was also noted to have hyperglycemia and has worked with hospitalist and PCP to try to get better control. Blood sugar levels remain elevated. Patient also had LEAS obtained in the hospital which suggested patient had the proper blood flow to allow healing. Patient has since finished nursing home course of antibiotics. Patient has since been seen on a weekly basis in office with progression and regression of wound noted over the weeks. Patient has tried various dressing options including wet to dry and santyl. The most progress was noted with Santyl but patient ran out and was unable to refill due to insurance issues. During which time the wound regressed. She also has an offloading surgical shoe and offloading boot to relieve pressure. Patient care is henceforth being carried out at the wound care center. Patient not currently on any antibiotics. Patient has had some issues getting to the office last few weeks largely due to other transportation issues and the weather. Patient relates no other concerns or problems. Patient has since began skin graft aplications Progress of Wound: heel ulcer noted to be smaller in size with less depth, improved Subjective: Patient seen and examined resting comfortably. Patient denies any new pedal complaints. Patient denies any nausea, fever, chills, chest pain, shortness of breath, cough, streaking, purulence, vomiting. - Physical Exam Vital Signs Temp Pulse Resp BP 96.7 F L 76 18 117/73 06/21/20 10:08 06/21/20 10:08 06/21/20 10:08 06/21/20 10:08 General: Alert, Oriented x3 HEENT: Atraumatic Extremities: No clubbing, No cyanosis, Capillary Refill Less than 3 Seconds, No Calf Tenderness, Diminished Peripheral Pulses, Edema - Left lower extremity greater than right Skin: Ulcer/ Wound - Left heel. No malodor, erythema, purulence, probing to b one, streaking, fluctuation, crepitus, or other signs of infection. Skin is atrophic and hairless. Granular base Wound Measurements and Assessment WC - Nurse 1 - General Ulcer Measurement Start: 05/31/20 10:41 Freq: Status: Active Protocol: Activity Type Activity Date Activity User E-Sign Co-Sign Detail Recorded Client Recorded Date Recorded By Document 06/21/20 10:08 DL [id number] 06/21/20 10:13 DL 06/21/20 10:08 Wound Center Nurse 1 [Ulcer Assessment] #1 L Heel -Current Size (cm) - Length 2.5 -Current Size (cm) - Width 1.6 -Current Size (cm) - Depth 0.1 -Total Square Cm 4.00 -Photo Taken No -Tunneling Position (O'clock) 7 -Tunneling Distance (cm) 0.2 -Exudate Amt Medium -Exudate Type Serosanguineous -Wound Margin Distinct, Outline Attached -Granulation Amt Medium (34-66%) -Granulation Quality Red -Necrosis Amt Medium (34-66%) -Necrotic Tissue Type Adherent Slough -Structure Exposed N/A -Texture (Bren-wound Skin Appearance) Scarring -Moisture (Bren-wound Skin Appearance Maceration ) -Color (Bren-wound Skin Appearance) No Abnormality -Temperature (Bren-wound Skin No Abnormality Appearance) (Pt Warm) -Tenderness on Palpation (Bren-wound No Skin Appearance) -Ulcer Cleansing Wound Cleanser -Foul Odor after Cleansing No -Anesthetic Used 4% Lidocaine Solution WC - Nurse 2 - General Ulcer CM Notes Start: 05/31/20 10:41 Freq: Status: Active Protocol: Activity Type Activity Date Activity User E-Sign Co-Sign Detail Recorded Client Recorded Date Recorded By Document 06/21/20 10:31 JAUN [id number] 06/21/20 10:45 JAUN 06/21/20 10:31 Wound Center Nurse 2 [Procedure/Treatment] -Time 10:32 -Correct Patient Yes -Correct Side, Site, Position Yes -Correct Procedure Yes -Procedure Performed Yes -Type of Procedure Debridement -Clinical Debridement Subcutaneous -Tissue Removed Subcutaneous -Post Debridement (cm) - Length 2.5 -Post Debridement (cm) - Width 1.5 -Post Debridement (cm) - Depth 0.1 -Total Square (Post) (cm) 3.75 -Area of Debridement (cm) - Length 2.5 -Area of Debridement (cm) - Width 1.5 -Total Square (Area) (cm) 3.75 -Tunneling No -Undermining/Tunneling No -Circular Undermining No -Wound/Ulcer Outcome Not Healed -Ulcer Cleansing Rinsed/ Irrigated with Saline -Foul Odor after Cleansing No -Bioengineered Tissue Yes -Type of Bioengineered Tissue Epifix -Expiration Date 03/01/25 -Product Lot Number [id number] -Percent Used 100 -Lot number of Saline Used [id number] -Bleeding Controlled with Pressure -Offloading No -Treatment Response Procedure Tolerated Well -Debridement - Subq, 1st 20sq cm Yes -Apply Skin Sub - 1st 25 sq cm - Feet 1 -Epifix (per sq cm) 4 [See Physician Procedure note for Specifics] Pain Scale: 0-10 Numeric [Pain] -Is Patient Pain Free? Yes - Nurse 3 - General Ulcer D/C NN Start: 05/31/20 10:41 Freq: Status: Active Protocol: Activity Type Activity Date Activity User E-Sign Co-Sign Detail Recorded Client Recorded Date Recorded By Document 06/21/20 10:45 JAUN [id number] 06/21/20 10:46 JAUN 06/21/20 10:45 Wound Care Nurse 3 [Wound Dressing] #1 L Heel -Ulcer Cleansing Rinsed/ Irrigated with Saline -Foul Odor after Cleansing No -Primary Dressing Covered/Secured Dry Gauze & with Roll Gauze, Secured with Tape [Compression Applied] Left -Compression Wrap Surepress ($) Pain Scale: 0-10 Numeric [Pain] -Is Patient Pain Free? Yes - Visit Discharge [Visit Discharge Information] -Discharge Condition Stable -Ambulatory Status Wheelchair -Transportation Private Auto -Medication Reconcilliation completed Yes & provided to patient/care provider -Clinical Summary of Care Provided Yes Musculoskeletal: No Tenderness to Palpation of Joints or Extremities, Muscle Wasting Neurological: - - Decrease in epicritic sensation consistent with neuropathy Psych/Mental Status: Normal Affect, Appropriate Debridement Note Post-Debridement Measurements/Treatment WC - Nurse 2 - General Ulcer CM Notes Start: 05/31/20 10:41 Freq: Status: Active Protocol: Activity Type Activity Date Activity User E-Sign Co-Sign Detail Recorded Client Recorded Date Recorded By Document 05/31/20 10:57 [id number] 05/31/20 11:03 Document 06/07/20 11:31 [id number] 06/07/20 12:56 Document 06/14/20 11:25 [id number] 06/14/20 11:31 Document 06/21/20 10:31 [id number] 06/21/20 10:45 JF 05/31/20 06/07/20 06/14/20 10:57 11:31 11:25 Wound Center Nurse 2 #1 L Heel -Time 11:01 12:55 11:26 -Correct Patient Yes Yes Yes -Correct Side, Site, Position Yes Yes Yes -Correct Procedure Yes Yes Yes -Procedure Performed Yes Yes Yes -Type of Procedure Debridement Debridement Debridement -Clinical Debridement Subcutaneous Subcutaneous Subcutaneous -Tissue Removed Subcutaneous Subcutaneous Subcutaneous -Post Debridement (cm) - Length 2.7 2.9 2.8 -Post Debridement (cm) - Width 1.5 1.7 1.5 -Post Debridement (cm) - Depth 0.4 0.1 0.1 -Total Square (Post) (cm) 4.05 4.93 4.20 -Area of Debridement (cm) - Length 2.7 2.9 2.8 -Area of Debridement (cm) - Width 1.5 1.7 1.5 -Total Square (Area) (cm) 4.05 4.93 4.20 -Tunneling No No No -Undermining/Tunneling No No No -Circular Undermining No No No -Wound/Ulcer Outcome Not Healed Not Healed Not Healed -Ulcer Cleansing Rinsed/ Rinsed/ Rinsed/ Irrigated with Irrigated with Irrigated with Saline Saline Saline -Foul Odor after Cleansing No No No -Bioengineered Tissue Yes Yes Yes -Type of Bioengineered Tissue Epifix Epifix Epifix -Expiration Date 11/30/24 12/30/24 12/30/24 -Product Lot Number [id number] -Percent Used 100 100 100 -Lot number of Saline Used [id number] -Bleeding Controlled with Pressure Pressure -Offloading No Yes -Type of Offloading Surgical Shoe -Treatment Response Procedure Procedure Procedure Tolerated Well Tolerated Well Tolerated Well -Debridement - Subq, 1st 20sq cm No No No -Apply Skin Sub - 1st 25 sq cm - Feet 1 1 1 -Epifix (per sq cm) 4 4 4 Pain Scale: 0-10 Numeric Is Patient Pain Free? Yes Yes Yes 06/21/20 10:31 Wound Center Nurse 2 #1 L Heel -Time 10:32 -Correct Patient Yes -Correct Side, Site, Position Yes -Correct Procedure Yes -Procedure Performed Yes -Type of Procedure Debridement -Clinical Debridement Subcutaneous -Tissue Removed Subcutaneous -Post Debridement (cm) - Length 2.5 -Post Debridement (cm) - Width 1.5 -Post Debridement (cm) - Depth 0.1 -Total Square (Post) (cm) 3.75 -Area of Debridement (cm) - Length 2.5 -Area of Debridement (cm) - Width 1.5 -Total Square (Area) (cm) 3.75 -Tunneling No -Undermining/Tunneling No -Circular Undermining No -Wound/Ulcer Outcome Not Healed -Ulcer Cleansing Rinsed/ Irrigated with Saline -Foul Odor after Cleansing No -Bioengineered Tissue Yes -Type of Bioengineered Tissue Epifix -Expiration Date 03/01/25 -Product Lot Number [id number] -Percent Used 100 -Lot number of Saline Used [id number] -Bleeding Controlled with Pressure -Offloading No -Type of Offloading -Treatment Response Procedure Tolerated Well -Debridement - Subq, 1st 20sq cm Yes -Apply Skin Sub - 1st 25 sq cm - Feet 1 -Epifix (per sq cm) 4 Pain Scale: 0-10 Numeric Is Patient Pain Free? Yes - Nurse 3 - General Ulcer D/C NN Start: 05/31/20 10:41 Freq: Status: Active Protocol: Activity Type Activity Date Activity User E-Sign Co-Sign Detail Recorded Client Recorded Date Recorded By Document 05/31/20 11:17 DL [id number] 05/31/20 11:18 DL Document 06/07/20 11:42 BMF [id number] 06/07/20 11:43 BMF Document 06/14/20 11:40 [facility] [id number] 06/14/20 11:41 [facility] Document 06/21/20 10:45 [id number] 06/21/20 10:46 05/31/20 06/07/20 06/14/20 11:17 11:42 11:40 Wound Care Nurse 3 #1 L Heel -Ulcer Cleansing -Foul Odor after Cleansing No -Other Dressing Epifix EPIFIX epifix -Primary Dressing Covered/Secured with Dry Gauze & Dry Gauze & Dry Gauze & Roll Gauze, Roll Gauze, Roll Gauze, Secured with Secured with Secured with Tape Tape Tape,Other -Other Covering surepress DRSG BY Usha VINCENT heel hat HAUNTED HISTORY TOUR GUIDE Left -Compression Wrap -Other PTS OWN pt's friend SUREPRESS applied own APPLIED BY HER surepress and ANIMAL SHELTER MANAGER gabriela Treatment Response Procedure Procedure Procedure Tolerated Well Tolerated Well Tolerated Well Pain Scale: 0-10 Numeric Is Patient Pain Free? Yes Yes Yes WC - Visit Discharge Discharge Condition Stable Stable Stable Ambulatory Status Ambulatory, Walker Walker Walker Transportation Private Auto Private Auto Private Auto Accompanied by friend Medication Reconcilliation completed & provided to patient/care provider Clinical Summary of Care Provided Notes: Calmoseptine to ant ankle. 06/21/20 10:45 Wound Care Nurse 3 #1 L Heel -Ulcer Cleansing Rinsed/ Irrigated with Saline -Foul Odor after Cleansing No -Other Dressing -Primary Dressing Covered/Secured with Dry Gauze & Roll Gauze, Secured with Tape -Other Covering Left -Compression Wrap Surepress ($) -Other Treatment Response Pain Scale: 0-10 Numeric Is Patient Pain Free? Yes WC - Visit Discharge Discharge Condition Stable Ambulatory Status Wheelchair Transportation Private Auto Accompanied by Medication Reconcilliation completed & Yes provided to patient/care provider Clinical Summary of Care Provided Yes Notes: Wound debrided: heel Laterality: Left Wound Grade/Stage: Glasgow 3 Type of Debridement: Excisional debridement Anesthesia Used: 4% Lidocaine Solution Depth: in the subcutaneous layer Percentage of wound debrided: 100 Instrument Used: 5mm curette Tissue Removed: Tissue removed includes fibrous, devitalized, biofilm, and slough tissue Severity: Fat Layer Exposed Amount of bleeding with debridement: Mild Bleeding Controlled with: Pressure Patient tolerated procedure well Assessment/Plan Active Problems (Last Reviewed 09/15/20 @ 18:[address] Tri Terry, DO) Pressure ulcer of left heel, stage 4 (Chronic) Type II diabetes mellitus (Chronic) Assessment: left heel ulcer. left anterior ankle ulcer?healed. DM with hyperglycemia and neuropathy. Hx osteomyelitis left calcaneus Plan: Patient seen and examined with boyfriend present. Wound noted to have improved. Patient has no new pedal complaints. Patient has history of osteomyelitis with ulcer probing to bone with hospital stay and course of IV antiboitics. Patient wished to avoid surgical resection. Patient has since finished course of antibiotics. heel wound to left foot were sharply debrided without incident after verbal consent was obtained. Anterior ankle wound to left foot has healed. Patient encouraged to lotion area skin is very dry as well as to pad area well to prevent future breakdown with dressing changes as area is dry and red from irritation. Patient to continue offloading heel. Patient has offloaded heel surgical shoe and prevalon boot for offloading. Patient had recent LEAS showing a left RONIT of 1.2 and TBI of 0.74 with triphasic waveforms. Discussed importance of offloading, blood sugar control, diet, and proper wound care to optimize healing potential. Discussed seeing a financial reporting director for education on proper nutrition. Patient relates she saw one last year. Continue wound care. Educated patient on signs and symptoms of infection to watch out for and to contact office or go to ED if seen. Today application of epifix was applied. I recommend application of advanced wound healing product to the left foot. Prior authorization was confirmed. The indications, benefits, anticipated application and healing time management were reviewed in detail. Verbal consent was obtained in the procedure for today. Site was debrided and graft was applied according to standard protocol and was further secured with Adaptic touch and Steri-Strips. Anterior ankle was well padded and moisturized. We will continue grafts at this time. Patient to follow up in 1 week. This note was generated with [employer] dictation software. I t may contain incorrect words, spelling, and punctuation that were not noted in checking the note before signing.
[2020-06-28 10:06] VITALS: TEMP 35.9; BMI 23.3
--- NOTE | 2020-06-28 11:07 | PN.PCM_ITS ---
(1) Pressure ulcer of left heel, stage 4 Status: Chronic Code(s): L89.624 - Pressure ulcer of left heel, stage 4 (2) Type II diabetes mellitus Status: Chronic Qualifiers: Diabetes mellitus complication status: with neurologic complications Diabetes mellitus complication detail: with polyneuropathy Code(s): E11.9 - Type 2 diabetes mellitus without complications Type of Wound Date of Service: 06/28/20 Chief Complaint: left heel ulcer. left ankle ulcer- healed History of Wound: In October 2019, patient had rubbing in shoes while shopping which led to a blister that developed into an ulceration. Patient was then seen in my office for wound care. Patient then became infected and was admitted to [facility]. Patient was noted to have OM on MRI. Patient wanted to avoid surgery so a rodent exterminator course of appropriate IV antibiotics was the treatment chosen. Patient was also noted to have hyperglycemia and has worked with hospitalist and PCP to try to get better control. Blood sugar levels remain elevated. Patient also had LEAS obtained in the hospital which suggested patient had the proper blood flow to allow healing. Patient has since finished fpc course of antibiotics. Patient has since been seen on a weekly basis in office with progression and regression of wound noted over the weeks. Patient has tried various dressing options including wet to dry and santyl. The most progress was noted with Santyl but patient ran out and was unable to refill due to insurance issues. During which time the wound regressed. She also has an offloading surgical shoe and offloading boot to relieve pressure. Patient care is henceforth being carried out at the wound care center. Patient not currently on any antibiotics. Patient has had some issues getting to the office last few weeks largely due to other transportation issues and the weather. Patient relates no other concerns or problems. Patient has since began skin graft aplications Progress of Wound: heel ulcer noted to be smaller in size with less depth, improved Subjective: Patient seen and examined resting comfortably. Patient denies any new pedal complaints. Patient denies any nausea, fever, chills, chest pain, shortness of breath, cough, streaking, purulence, vomiting. Patient relates mild pain to the heel - Physical Exam Vital Signs Temp Pulse Resp BP 96.7 F L 76 18 117/73 06/28/20 10:06 06/21/20 10:08 06/21/20 10:08 06/21/20 10:08 General: Alert, Oriented x3 HEENT: Atraumatic Extremities: No clubbing, No cyanosis, Capillary Refill Less than 3 Seconds, No Calf Tenderness, Diminished Peripheral Pulses, Edema, - - Red noninfectious area to anterior ankle from irritation without signs of infection or ulceration Skin: No rashes, Ulcer/ Wound - Left plantar heel ulceration. No malodor, erythema, purulence, probing to bone, streaking, fluctuation, crepitus, or other signs of infection. Skin is atrophic and hairless. Granular base Wound Measurements and Assessment WC - Nurse 1 - General Ulcer Measurement Start: 05/31/20 10:41 Freq: Status: Active Protocol: Activity Type Activity Date Activity User E-Sign Co-Sign Detail Recorded Client Recorded Date Recorded By Document 06/28/20 10:06 ELIO [id number] 06/28/20 10:11 ELIO 06/28/20 10:06 Wound Center Nurse 1 [Ulcer Assessment] #1 L Heel -Current Size (cm) - Length 2 -Current Size (cm) - Width 1.2 -Current Size (cm) - Depth 0.1 -Total Square Cm 2.4 -Exudate Amt Small -Exudate Type Serosanguineous -Wound Margin Distinct, Outline Attached -Granulation Amt Large (67-100%) -Granulation Quality [place] -Necrosis Amt Small (1-33%) -Necrotic Tissue Type Adherent Slough -Texture (Bren-wound Skin Appearance) Assessed, Scarring -Moisture (Bren-wound Skin Appearance No Abnormality, ) Assessed -Color (Bren-wound Skin Appearance) No Abnormality, Assessed -Temperature (Bren-wound Skin No Abnormality Appearance) (Pt Warm) -Tenderness on Palpation (Bren-wound No Skin Appearance) -Ulcer Cleansing Rinsed/ Irrigated with Saline -Foul Odor after Cleansing No -Anesthetic Used 4% Lidocaine Solution WC - Nurse 2 - General Ulcer CM Notes Start: 05/31/20 10:41 Freq: Status: Active Protocol: Activity Type Activity Date Activity User E-Sign Co-Sign Detail Recorded Client Recorded Date Recorded By Document 06/28/20 10:58 JAUN [id number] 06/28/20 11:00 JAUN 06/28/20 10:58 Wound Center Nurse 2 [Procedure/Treatment] -Time 10:59 -Correct Patient Yes -Correct Side, Site, Position Yes -Correct Procedure Yes -Procedure Performed Yes -Type of Procedure Debridement -Clinical Debridement Subcutaneous -Tissue Removed Subcutaneous -Post Debridement (cm) - Length 2 -Post Debridement (cm) - Width 1.1 -Post Debridement (cm) - Depth 0.1 -Total Square (Post) (cm) 2.2 -Area of Debridement (cm) - Length 2 -Area of Debridement (cm) - Width 1.1 -Total Square (Area) (cm) 2.2 -Tunneling No -Undermining/Tunneling No -Circular Undermining No -Wound/Ulcer Outcome Not Healed -Ulcer Cleansing Rinsed/ Irrigated with Saline -Foul Odor after Cleansing No -Bioengineered Tissue Yes -Type of Bioengineered Tissue Epifix -Expiration Date 03/01/25 -Product Lot Number [id number] -Percent Used 100 -Lot number of Saline Used [id number] -Bleeding Controlled with Pressure -Offloading Yes -Type of Offloading Surgical Shoe -Treatment Response Procedure Tolerated Well -Debridement - Subq, 1st 20sq cm No -Apply Skin Sub - 1st 25 sq cm - Feet 1 -Epifix (per sq cm) 4 [See Physician Procedure note for Specifics] Pain Scale: 0-10 Numeric [Pain] -Is Patient Pain Free? Yes Musculoskeletal: Muscle Wasting, Tenderness Neurological: - - Decrease in epicritic sensation consistent with neuropathy Psych/Mental Status: Normal Affect, Appropriate Debridement Note Post-Debridement Measurements/Treatment WC - Nurse 2 - General Ulcer CM Notes Start: 05/31/20 10:41 Freq: Status: Active Protocol: Activity Type Activity Date Activity User E-Sign Co-Sign Detail Recorded Client Recorded Date Recorded By Document 05/31/20 10:57 [id number] 05/31/20 11:03 Document 06/07/20 11:31 [id number] 06/07/20 12:56 Document 06/14/20 11:25 [id number] 06/14/20 11:31 Document 06/21/20 10:31 [id number] 06/21/20 10:45 Document 06/28/20 10:58 [id number] 06/28/20 11:00 JF 05/31/20 06/07/20 06/14/20 10:57 11:31 11:25 Wound Center Nurse 2 #1 L Heel -Time 11:01 12:55 11:26 -Correct Patient Yes Yes Yes -Correct Side, Site, Position Yes Yes Yes -Correct Procedure Yes Yes Yes -Procedure Performed Yes Yes Yes -Type of Procedure Debridement Debridement Debridement -Clinical Debridement Subcutaneous Subcutaneous Subcutaneous -Tissue Removed Subcutaneous Subcutaneous Subcutaneous -Post Debridement (cm) - Length 2.7 2.9 2.8 -Post Debridement (cm) - Width 1.5 1.7 1.5 -Post Debridement (cm) - Depth 0.4 0.1 0.1 -Total Square (Post) (cm) 4.05 4.93 4.20 -Area of Debridement (cm) - Length 2.7 2.9 2.8 -Area of Debridement (cm) - Width 1.5 1.7 1.5 -Total Square (Area) (cm) 4.05 4.93 4.20 -Tunneling No No No -Undermining/Tunneling No No No -Circular Undermining No No No -Wound/Ulcer Outcome Not Healed Not Healed Not Healed -Ulcer Cleansing Rinsed/ Rinsed/ Rinsed/ Irrigated with Irrigated with Irrigated with Saline Saline Saline -Foul Odor after Cleansing No No No -Bioengineered Tissue Yes Yes Yes -Type of Bioengineered Tissue Epifix Epifix Epifix -Expiration Date 11/30/24 12/30/24 12/30/24 -Product Lot Number [id number] -Percent Used 100 100 100 -Lot number of Saline Used [id number] -Bleeding Controlled with Pressure Pressure -Offloading No Yes -Type of Offloading Surgical Shoe -Treatment Response Procedure Procedure Procedure Tolerated Well Tolerated Well Tolerated Well -Debridement - Subq, 1st 20sq cm No No No -Apply Skin Sub - 1st 25 sq cm - Feet 1 1 1 -Epifix (per sq cm) 4 4 4 Pain Scale: 0-10 Numeric Is Patient Pain Free? Yes Yes Yes 06/21/20 06/28/20 10:31 10:58 Wound Center Nurse 2 #1 L Heel -Time 10:32 10:59 -Correct Patient Yes Yes -Correct Side, Site, Position Yes Yes -Correct Procedure Yes Yes -Procedure Performed Yes Yes -Type of Procedure Debridement Debridement -Clinical Debridement Subcutaneous Subcutaneous -Tissue Removed Subcutaneous Subcutaneous -Post Debridement (cm) - Length 2.5 2 -Post Debridement (cm) - Width 1.5 1.1 -Post Debridement (cm) - Depth 0.1 0.1 -Total Square (Post) (cm) 3.75 2.2 -Area of Debridement (cm) - Length 2.5 2 -Area of Debridement (cm) - Width 1.5 1.1 -Total Square (Area) (cm) 3.75 2.2 -Tunneling No No -Undermining/Tunneling No No -Circular Undermining No No -Wound/Ulcer Outcome Not Healed Not Healed -Ulcer Cleansing Rinsed/ Rinsed/ Irrigated with Irrigated with Saline Saline -Foul Odor after Cleansing No No -Bioengineered Tissue Yes Yes -Type of Bioengineered Tissue Epifix Epifix -Expiration Date 03/01/25 03/01/25 -Product Lot Number [id number] -Percent Used 100 100 -Lot number of Saline Used [id number] -Bleeding Controlled with Pressure Pressure -Offloading No Yes -Type of Offloading Surgical Shoe -Treatment Response Procedure Procedure Tolerated Well Tolerated Well -Debridement - Subq, 1st 20sq cm No No -Apply Skin Sub - 1st 25 sq cm - Feet 1 1 -Epifix (per sq cm) 4 4 Pain Scale: 0-10 Numeric Is Patient Pain Free? Yes Yes - Nurse 3 - General Ulcer D/C NN Start: 05/31/20 10:41 Freq: Status: Active Protocol: Activity Type Activity Date Activity User E-Sign Co-Sign Detail Recorded Client Recorded Date Recorded By Document 05/31/20 11:17 DL [id number] 05/31/20 11:18 DL Document 06/07/20 11:42 [facility] [id number] 06/07/20 11:43 BM Document 06/14/20 11:40 [facility] [id number] 06/14/20 11:41 [facility] Document 06/21/20 10:45 [id number] 06/21/20 10:46 05/31/20 06/07/20 06/14/20 11:17 11:42 11:40 Wound Care Nurse 3 #1 L Heel -Ulcer Cleansing -Foul Odor after Cleansing No -Other Dressing Epifix EPIFIX epifix -Primary Dressing Covered/Secured with Dry Gauze & Dry Gauze & Dry Gauze & Roll Gauze, Roll Gauze, Roll Gauze, Secured with Secured with Secured with Tape Tape Tape,Other -Other Covering surepress DRSG BY Usha VINCENT heel hat [facility] Left -Compression Wrap -Other PTS OWN pt's friend SUREPRESS applied own APPLIED BY HER surepress and INTENSIVE CARE ANAESTHETIST gabriela Treatment Response Procedure Procedure Procedure Tolerated Well Tolerated Well Tolerated Well Pain Scale: 0-10 Numeric Is Patient Pain Free? Yes Yes Yes WC - Visit Discharge Discharge Condition Stable Stable Stable Ambulatory Status Ambulatory, Walker Walker Walker Transportation Private Auto Private Auto Private Auto Accompanied by friend Medication Reconcilliation completed & provided to patient/care provider Clinical Summary of Care Provided Notes: Calmoseptine to ant ankle. 06/21/20 10:45 Wound Care Nurse 3 #1 L Heel -Ulcer Cleansing Rinsed/ Irrigated with Saline -Foul Odor after Cleansing No -Other Dressing -Primary Dressing Covered/Secured with Dry Gauze & Roll Gauze, Secured with Tape -Other Covering Left -Compression Wrap Surepress ($) -Other Treatment Response Pain Scale: 0-10 Numeric Is Patient Pain Free? Yes WC - Visit Discharge Discharge Condition Stable Ambulatory Status Wheelchair Transportation Private Auto Accompanied by Medication Reconcilliation completed & Yes provided to patient/care provider Clinical Summary of Care Provided Yes Notes: Wound debrided: heel Laterality: Left Wound Grade/Stage: [place] 3 Type of Debridement: Excisional debridement Anesthesia Used: 4% Lidocaine Solution Depth: in the subcutaneous layer Percentage of wound debrided: 100 Instrument Used: 3mm curette Tissue Removed: Tissue removed includes fibrous, devitalized, biofilm, and slough tissue Severity: Fat Layer Exposed Amount of bleeding with debridement: Mild Bleeding Controlled with: Pressure Patient tolerated procedure well Assessment/Plan Active Problems (Last Reviewed 12/15/19 @ 18:[address] Tri Terry, DO) Pressure ulcer of left heel, stage 4 (Chronic) Type II diabetes mellitus (Chronic) Assessment: left heel ulcer. left anterior ankle ulcer?healed. DM with hyperglycemia and neuropathy. Hx osteomyelitis left calcaneus Plan: Patient seen and examined with boyfriend present. Wound noted to have improved. Patient has no new pedal complaints. Patient has history of osteomyelitis with ulcer probing to bone with hospital stay and course of IV antiboitics. Patient wished to avoid surgical resection. Patient has since finished course of antibiotics. heel wound to left foot were sharply debrided without incident after verbal consent was obtained. Anterior ankle wound to left foot has healed. Patient encouraged to lotion area skin is very dry as well as to pad area well to prevent future breakdown with dressing changes as area is dry and red from irritation. Patient to continue offloading heel. Patient has offloaded heel surgical shoe and prevalon boot for offloading. Patient had recent LEAS showing a left RONIT of 1.2 and TBI of 0.74 with triphasic waveforms. Discussed importance of offloading, blood sugar control, diet, and proper wound care to optimize healing potential. Discussed seeing a conventional machinist for education on proper nutrition. Patient relates she saw one last year. Continue wound care. Educated patient on signs and symptoms of infection to watch out for and to contact office or go to ED if seen. Today application of epifix was applied. I recommend application of advanced wound healing product to the left foot. Prior authorization was confirmed. The indications, benefits, anticipated application and healing time management were reviewed in detail. Verbal consent was obtained in the procedure for today. Site was debrided and graft was applied according to standard protocol and was further secured with wound veil and Steri-Strips. Anterior ankle was moisturized. We will continue grafts at this time. Patient to follow up in 1 week. This note was generated with [employer] dictation software. It may contain incorrect words, spelling, and punctuation that were not noted in checking the note before signing.
== END 2020-06-29 23:59 ==
LOC: WC 10:15
PROVIDERS: PCP Family Medicine; Referring Provider Podiatrist; Visit Provider Podiatrist Foot & Ankle Surgery
DX: L89.624 Pressure ulcer of left heel, stage 4 (principal); E11.42 Type 2 diabetes mellitus with diabetic polyneuropathy; E11.65 Type 2 diabetes mellitus with hyperglycemia
CPT/HCPCS: 11042; 15275; Q4186

== ENCOUNTER 2020-07-26 10:15 | Outpatient (RCR) | payer MEDICAID, SELFPAY ==
[2020-06-30 00:39] VITALS: BP 117/73; PULSE 76; RESP 18; TEMP 35.9
[2020-07-05 10:32] VITALS: BP 121/64; PULSE 80; RESP 16; TEMP 36; BMI 23.3
--- NOTE | 2020-07-05 11:57 | PN.PCM_ITS ---
(1) Pressure ulcer of left heel, stage 4 Status: Chronic Code(s): L89.624 - Pressure ulcer of left heel, stage 4 (2) Ulcer of left ankle Status: Resolved Qualifiers: Code(s): L97.329 - Non-pressure chronic ulcer of left ankle with unspecified severity (3) Type II diabetes mellitus Status: Chronic Qualifiers: Diabetes mellitus complication status: with neurologic complications Diabetes mellitus complication detail: with polyneuropathy Code(s): E11.9 - Type 2 diabetes mellitus without complications (4) Osteomyelitis Status: Resolved Qualifiers: Osteomyelitis location: foot Laterality: left Code(s): M86.9 - Osteomyelitis, unspecified Type of Wound Date of Service: 07/05/20 Chief Complaint: left heel ulcer. left ankle ulcer- healed History of Wound: In October 2019, patient had rubbing in shoes while shopping which led to a blister that developed into an ulceration. Patient was then seen in my office for wound care. Patient then became infected and was admitted to the hospital. Patient was noted to have OM on MRI. Patient wanted to avoid surgery so a intermodal customer service course of appropriate IV antibiotics was the treatment chosen. Patient was also noted to have hyperglycemia and has worked with hospitalist and PCP to try to get better control. Blood sugar levels remain elevated. Patient also had LEAS obtained in the hospital which suggested patient had the proper blood flow to allow healing. Patient has since finished intermodal customer service course of antibiotics. Patient has since been seen on a weekly basis in office with progression and regression of wound noted over the weeks. Patient has tried various dressing options including wet to dry and santyl. The most progress was noted with Santyl but patient ran out and was unable to refill due to insurance issues. During which time the wound regressed. She also has an offloading surgical shoe and offloading boot to relieve pressure. Patient care is henceforth being carried out at the wound care center. Patient not currently on any antibiotics. Patient has had some issues getting to the office last few weeks largely due to other transportation issues and the weather. Patient relates no other concerns or problems. Patient has since began skin graft aplications Progress of Wound: heel ulcer noted to be smaller in size with less depth, improved Subjective: Patient seen and examined resting comfortably. Patient denies any new pedal complaints. Patient denies any nausea, fever, chills, chest pain, shortness of breath, cough, streaking, purulence, vomiting. She relates that since switching to other dressing that the anterior ankles feeling and looking much better - Physical Exam Vital Signs Temp Pulse Resp BP 96.8 F L 80 16 121/64 H 07/05/20 10:32 07/05/20 10:32 07/05/20 10:32 07/05/20 10:32 General: Alert, Oriented x3 HEENT: Atraumatic Extremities: No clubbing, No cyanosis, Capillary Refill Less than 3 Seconds, No Calf Tenderness, Edema - Well-controlled, Peripheral Pulses Normal Skin: Ulcer/ Wound - Left posterior heel. No malodor, erythema, purulence, probing to bone, streaking, fluctuation, crepitus, or other signs of infection. Skin is atrophic and hairless. Granular base, - - Anterior ankle less erythematous irritated looking skin. It is still dry. No signs of infection Wound Measurements and Assessment WC - Nurse 1 - General Ulcer Measurement Start: 07/05/20 10:32 Freq: Status: Active Protocol: Activity Type Activity Date Activity User E-Sign Co-Sign Detail Recorded Client Recorded Date Recorded By Document 07/05/20 10:32 [facility] [id number] 07/05/20 10:40 [facility] 07/05/20 10:32 Wound Center Nurse 1 [Ulcer Assessment] #1 L Heel -Combined with other wound No -Current Size (cm) - Length 1.2 -Current Size (cm) - Width 1 -Current Size (cm) - Depth 0.2 -Total Square Cm 1.2 -Photo Taken No -Epithelialization None Present -Tunneling No -Undermining/Tunneling No -Circular Undermining No -Exudate Amt Medium -Exudate Type Serosanguineous -Wound Margin Distinct, Outline Attached -Granulation Amt Small (1-33%) -Granulation Quality Red -Slough/Fibrin Yes -Necrosis Amt Large (67-100%) -Necrotic Tissue Type Adherent Slough -Texture (Bren-wound Skin Appearance) Assessed, Scarring -Moisture (Bren-wound Skin Appearance Assessed, ) Maceration -Color (Bren-wound Skin Appearance) Assessed, Erythema,Palor -Temperature (Bren-wound Skin No Abnormality Appearance) (Pt Warm) -Tenderness on Palpation (Bren-wound No Skin Appearance) -Ulcer Cleansing SOAPY WATER -Foul Odor after Cleansing No -Anesthetic Used 5% Lidocaine Gel SAMARIA - Nurse 2 - General Ulcer CM Notes Start: 07/05/20 10:32 Freq: Status: Active Protocol: Activity Type Activity Date Activity User E-Sign Co-Sign Detail Recorded Client Recorded Date Recorded By Document 07/05/20 11:11 JAUN [id number] 07/05/20 11:13 JAUN 07/05/20 11:11 Wound Center Nurse 2 [Procedure/Treatment] -Time 11:12 -Correct Patient Yes -Correct Side, Site, Position Yes -Correct Procedure Yes -Procedure Performed Yes -Type of Procedure Debridement -Clinical Debridement Subcutaneous -Tissue Removed Subcutaneous -Post Debridement (cm) - Length 1.5 -Post Debridement (cm) - Width 0.6 -Post Debridement (cm) - Depth 0.1 -Total Square (Post) (cm) 0.90 -Area of Debridement (cm) - Length 1.5 -Area of Debridement (cm) - Width 0.6 -Total Square (Area) (cm) 0.90 -Tunneling No -Undermining/Tunneling No -Circular Undermining No -Wound/Ulcer Outcome Not Healed -Ulcer Cleansing Rinsed/ Irrigated with Saline -Foul Odor after Cleansing No -Bioengineered Tissue Yes -Type of Bioengineered Tissue Epifix 18mm Disc -Expiration Date 03/01/25 -Product Lot Number [id number] -Percent Used 100 -Lot number of Saline Used [id number] -Bleeding Controlled with Pressure -Offloading No -Treatment Response Procedure Tolerated Well -Debridement - Subq, 1st 20sq cm No -Apply Skin Sub - 1st 25 sq cm - Feet 1 -Epifix 18mm Disc 3 Query Text:18mm = 3 [See Physician Procedure note for Specifics] Pain Scale: 0-10 Numeric [Pain] -Is Patient Pain Free? Yes WC - Nurse 3 - General Ulcer D/C NN Start: 07/05/20 10:32 Freq: Status: Active Protocol: Activity Type Activity Date Activity User E-Sign Co-Sign Detail Recorded Client Recorded Date Recorded By Document 07/05/20 11:14 JAUN [id number] 07/05/20 11:14 JAUN 07/05/20 11:14 Wound Care Nurse 3 [Wound Dressing] #1 L Heel -Ulcer Cleansing Rinsed/ Irrigated with Saline -Foul Odor after Cleansing No -Primary Dressing Applied Mepilex Border -Mepilex Border 1 Pain Scale: 0-10 Numeric [Pain] -Is Patient Pain Free? Yes - Visit Discharge [Visit Discharge Information] -Discharge Condition Stable -Ambulatory Status Wheelchair -Transportation Private Auto -Medication Reconcilliation completed Yes & provided to patient/care provider -Clinical Summary of Care Provided Yes Musculoskeletal: No Tenderness to Palpation of Joints or Extremities Neurological: - - Decrease in epicritic sensation Psych/Mental Status: Normal Affect, Appropriate Debridement Note Post-Debridement Measurements/Treatment - Nurse 2 - General Ulcer CM Notes Start: 07/05/20 10:32 Freq: Status: Active Protocol: Activity Type Activity Date Activity User E-Sign Co-Sign Detail Recorded Client Recorded Date Recorded By Document 07/05/20 11:11 JAUN [id number] 07/05/20 11:13 JAUN 07/05/20 11:11 Wound Center Nurse 2 #1 L Heel -Time 11:12 -Correct Patient Yes -Correct Side, Site, Position Yes -Correct Procedure Yes -Procedure Performed Yes -Type of Procedure Debridement -Clinical Debridement Subcutaneous -Tissue Removed Subcutaneous -Post Debridement (cm) - Length 1.5 -Post Debridement (cm) - Width 0.6 -Post Debridement (cm) - Depth 0.1 -Total Square (Post) (cm) 0.90 -Area of Debridement (cm) - Length 1.5 -Area of Debridement (cm) - Width 0.6 -Total Square (Area) (cm) 0.90 -Tunneling No -Undermining/Tunneling No -Circular Undermining No -Wound/Ulcer Outcome Not Healed -Ulcer Cleansing Rinsed/ Irrigated with Saline -Foul Odor after Cleansing No -Bioengineered Tissue Yes -Type of Bioengineered Tissue Epifix 18mm Disc -Expiration Date 03/01/25 -Product Lot Number [id number] -Percent Used 100 -Lot number of Saline Used [id number] -Bleeding Controlled with Pressure -Offloading No -Treatment Response Procedure Tolerated Well -Debridement - Subq, 1st 20sq cm No -Apply Skin Sub - 1st 25 sq cm - Feet 1 -Epifix 18mm Disc 3 Query Text:18mm = 3 Pain Scale: 0-10 Numeric Is Patient Pain Free? Yes - Nurse 3 - General Ulcer D/C NN Start: 07/05/20 10:32 Freq: Status: Active Protocol: Activity Type Activity Date Activity User E-Sign Co-Sign Detail Recorded Client Recorded Date Recorded By Document 07/05/20 11:14 JAUN [id number] 07/05/20 11:14 JAUN 07/05/20 11:14 Wound Care Nurse 3 #1 L Heel -Ulcer Cleansing Rinsed/ Irrigated with Saline -Foul Odor after Cleansing No -Primary Dressing Applied Mepilex Border -Mepilex Border 1 Pain Scale: 0-10 Numeric Is Patient Pain Free? Yes WC - Visit Discharge Discharge Condition Stable Ambulatory Status Wheelchair Transportation Private Auto Medication Reconcilliation completed & Yes provided to patient/care provider Clinical Summary of Care Provided Yes Wound debrided: Posterior heel Laterality: Left Wound Grade/Stage: Pressure 1 used to be 4 Type of Debridement: Excisional debridement Anesthesia Used: 4% Lidocaine Solution Depth: in the subcutaneous layer Percentage of wound debrided: 100 Instrument Used: 3mm curette Tissue Removed: Tissue removed includes fibrous, devitalized, biofilm, and s jacquelyn tissue Severity: Fat Layer Exposed Amount of bleeding with debridement: Mild Bleeding Controlled with: Pressure Patient tolerated procedure well Assessment/Plan Active Problems (Last Reviewed 12/15/19 @ 18:[address] Tri Terry, DO) Pressure ulcer of left heel, stage 4 (Chronic) Type II diabetes mellitus (Chronic) Assessment: left heel ulcer. left anterior ankle ulcer?healed. DM with hyperglycemia and neuropathy. Hx osteomyelitis left calcaneus Plan: Patient seen and examined with boyfriend present. Wound noted to have improved. Patient has no new pedal complaints. She relates that the anterior ankle is doing much better less dry skin less redness. Patient has history of osteomyelitis with ulcer probing to bone with hospital stay and course of IV antiboitics. Patient wished to avoid surgical resection. Patient has since finished course of antibiotics. heel wound to left foot were sharply debrided without incident after verbal consent was obtained. Anterior ankle wound to left foot has healed. Patient encouraged to lotion area skin is very dry as well as to pad area well to prevent future breakdown with dressing changes as area is dry and red from irritation much improved since switching to Mepilex border dressing for heel wound. Patient to continue offloading heel. Patient has offloaded heel surgical shoe and prevalon boot for offloading. Patient had recent LEAS showing a left RONIT of 1.2 and TBI of 0.74 with triphasic waveforms. Discussed importance of offloading, blood sugar control, diet, and proper wound care to optimize healing potential. Discussed seeing a residential gas heat technician for educ ation on proper nutrition. Patient relates she saw one last year. Continue wound care. Educated patient on signs and symptoms of infection to watch out for and to contact office or go to ED if seen. Today application of epifix was applied. I recommend application of advanced wound healing product to the left foot. Prior authorization was confirmed. The indications, benefits, anticipated application and healing time management were reviewed in detail. Verbal consent was obtained in the procedure for today. Site was debrided and graft was applied according to standard protocol and was further secured with wound veil and Steri-Strips. Anterior ankle was moisturized. We will continue grafts at this time. Patient to follow up in 1 week. This note was generated with [employer] dictation software. It may contain incorrect words, spelling, and punctuation that were not noted in checking the note before signing.
[2020-07-12 10:25] VITALS: BP 118/71; PULSE 75; RESP 20; TEMP 36.4; BMI 23.3
--- NOTE | 2020-07-12 12:27 | PCM.WC.PN ---
(1) Pressure ulcer of left heel, stage 4 Status: Chronic Code(s): L89.624 - Pressure ulcer of left heel, stage 4 (2) Ulcer of left ankle Status: Resolved Qualifiers: Code(s): L97.329 - Non-pressure chronic ulcer of left ankle with unspecified severity (3) Type II diabetes mellitus Status: Chronic Qualifiers: Diabetes mellitus complication status: with neurologic complications Diabetes mellitus complication detail: with polyneuropathy Code(s): E11.9 - Type 2 diabetes mellitus without complications (4) Osteomyelitis Status: Resolved Qualifiers: Osteomyelitis location: foot Laterality: left Code(s): M86.9 - Osteomyelitis, unspecified Type of Wound Date of Service: 07/12/20 Chief Complaint: left heel ulcer. left ankle ulcer- healed History of Wound: In October 2019, patient had rubbing in shoes while shopping which led to a blister that developed into an ulceration. Patient was then seen in my office for wound care. Patient then became infected and was admitted to the hospital. Patient was noted to have OM on MRI. Patient wanted to avoid surgery so a senior care course of appropriate IV antibiotics was the treatment chosen. Patient was also noted to have hyperglycemia and has worked with hospitalist and PCP to try to get better control. Blood sugar levels remain elevated. Patient also had LEAS obtained in the hospital which suggested patient had the proper blood flow to allow healing. Patient has since finished [employer] course of antibiotics. Patient has since been seen on a weekly basis in office with progression and regression of wound noted over the weeks. Patient has tried various dressing options including wet to dry and santyl. The most progress was noted with Santyl but patient ran out and was unable to refill due to insurance issues. During which time the wound regressed. She also has an offloading surgical shoe and offloading boot to relieve pressure. Patient care is henceforth being carried out at the wound care center. Patient not currently on any antibiotics. Patient has had some issues getting to the office last few weeks largely due to other transportation issues and the weather. Patient relates no other concerns or problems. Patient has since began skin graft aplications significant improvement is been noted to her foot overall. Progress of Wound: heel ulcer noted to be smaller in size with less depth, improved Subjective: Patient seen and examined resting comfortably. Patient denies any new pedal complaints. Patient denies any nausea, fever, chills, chest pain, shortness of breath, cough, streaking, purulence, vomiting. - Physical Exam Vital Signs Temp Pulse Resp BP 97.5 F L 75 20 H 118/71 07/12/20 10:25 07/12/20 10:25 07/12/20 10:25 07/12/20 10:25 General: Alert, Oriented x3 HEENT: Atraumatic Extremities: No cyanosis, Capillary Refill Less than 3 Seconds, No Calf Tenderness, Edema - Improved. Left worse than right, Peripheral Pulses Normal Skin: Ulcer/ Wound - Plantar left heel. No malodor, erythema, purulence, probing to bone, streaking, fluctuation, crepitus, or other signs of infection. Skin is atrophic and hairless. Granular base, - - Anterior left ankle irritation erythema much improved no open wound skin is noted to be dry at area. Wound Measurements and Assessment WC - Nurse 1 - General Ulcer Measurement Start: 07/05/20 10:32 Freq: Status: Active Protocol: Activity Type Activity Date Activity User E-Sign Co-Sign Detail Recorded Client Recorded Date Recorded By Document 07/12/20 10:25 DL [id number] 07/12/20 10:31 DL 07/12/20 10:25 Wound Center Nurse 1 [Ulcer Assessment] #1 L Heel -Current Size (cm) - Length 0.9 -Current Size (cm) - Width 0.9 -Current Size (cm) - Depth 0.1 -Total Square Cm 0.81 -Photo Taken No -Exudate Amt Small -Exudate Type Serosanguineous -Wound Margin Indistinct, Non -Visible -Granulation Amt Small (1-33%) -Granulation Quality [place] -Necrosis Amt Large (67-100%) -Necrotic Tissue Type Adherent Slough -Structure Exposed N/A -Texture (Bren-wound Skin Appearance) Scarring -Moisture (Bren-wound Skin Appearance Maceration ) -Color (Bren-wound Skin Appearance) No Abnormality -Temperature (Bren-wound Skin No Abnormality Appearance) (Pt Warm) -Tenderness on Palpation (Bren-wound No Skin Appearance) -Ulcer Cleansing Wound Cleanser -Foul Odor after Cleansing No -Anesthetic Used 4% Lidocaine Solution [Edema Assessment] -Left Calf (cm) 38.2 -Left Ankle (cm) 20.2 WC - Nurse 2 - General Ulcer CM Notes Start: 07/05/20 10:32 Freq: Status: Active Protocol: Activity Type Activity Date Activity User E-Sign Co-Sign Detail Recorded Client Recorded Date Recorded By Document 07/12/20 11:01 JAUN [id number] 07/12/20 11:05 JAUN 07/12/20 11:01 Wound Center Nurse 2 [Procedure/Treatment] #1 L Heel -Time 11:04 -Correct Patient Yes -Correct Side, Site, Position Yes -Correct Procedure Yes -Procedure Performed Yes -Type of Procedure Debridement -Clinical Debridement Subcutaneous -Tissue Removed Subcutaneous -Post Debridement (cm) - Length 1.4 -Post Debridement (cm) - Width 0.5 -Post Debridement (cm) - Depth 0.1 -Total Square (Post) (cm) 0.70 -Area of Debridement (cm) - Length 1.4 -Area of Debridement (cm) - Width 0.5 -Total Square (Area) (cm) 0.70 -Tunneling No -Undermining/Tunneling No -Circular Undermining No -Wound/Ulcer Outcome Not Healed -Ulcer Cleansing Rinsed/ Irrigated with Saline -Foul Odor after Cleansing No -Bioengineered Tissue Yes -Type of Bioengineered Tissue Epifix 18mm Disc -Expiration Date 03/01/25 -Product Lot Number [id number] -Percent Used 100 -Lot number of Saline Used [id number] -Bleeding Controlled with Pressure -Offloading Yes -Type of Offloading Knee Walker -Treatment Response Procedure Tolerated Well -Debridement - Subq, 1st 20sq cm No -Apply Skin Sub - 1st 25 sq cm - Feet 1 -Epifix 18mm Disc 3 Query Text:18mm = 3 [See Physician Procedure note for Specifics] Pain Scale: 0-10 Numeric [Pain] -Is Patient Pain Free? Yes WC - Nurse 3 - General Ulcer D/C NN Start: 07/05/20 10:32 Freq: Status: Active Protocol: Activity Type Activity Date Activity User E-Sign Co-Sign Detail Recorded Client Recorded Date Recorded By Document 07/12/20 11:07 [email or web address] [id number] 07/12/20 11:08 JAUN 07/12/20 11:07 Wound Care Nurse 3 [Wound Dressing] #1 L Heel -Primary Dressing Applied Mepilex Border -Mepilex Border 1 [Compression Applied] Left -Compression Wrap Surepress ($) Pain Scale: 0-10 Numeric [Pain] -Is Patient Pain Free? Yes WC - Visit Discharge [Visit Discharge Information] -Discharge Condition Stable -Ambulatory Status Walker, Wheelchair -Transportation Private Auto -Medication Reconcilliation completed Yes & provided to patient/care provider -Clinical Summary of Care Provided Yes Musculoskeletal: Muscle Wasting, Tenderness - Left heel Neurological: - - Decrease in epicritic sensation Psych/Mental Status: Normal Affect, Appropriate Debridement Note Post-Debridement Measurements/Treatment - Nurse 2 - General Ulcer CM Notes Start: 07/05/20 10:32 Freq: Status: Active Protocol: Activity Type Activity Date Activity User E-Sign Co-Sign Detail Recorded Client Recorded Date Recorded By Document 07/05/20 11:11 [id number] 07/05/20 11:13 Document 07/12/20 11:01 [id number] 07/12/20 11:05 07/05/20 07/12/20 11:11 11:01 Wound Center Nurse 2 #1 L Heel -Time 11:12 11:04 -Correct Patient Yes Yes -Correct Side, Site, Position Yes Yes -Correct Procedure Yes Yes -Procedure Performed Yes Yes -Type of Procedure Debridement Debridement -Clinical Debridement Subcutaneous Subcutaneous -Tissue Removed Subcutaneous Subcutaneous -Post Debridement (cm) - Length 1.5 1.4 -Post Debridement (cm) - Width 0.6 0.5 -Post Debridement (cm) - Depth 0.1 0.1 -Total Square (Post) (cm) 0.90 0.70 -Area of Debridement (cm) - Length 1.5 1.4 -Area of Debridement (cm) - Width 0.6 0.5 -Total Square (Area) (cm) 0.90 0.70 -Tunneling No No -Undermining/Tunneling No No -Circular Undermining No No -Wound/Ulcer Outcome Not Healed Not Healed -Ulcer Cleansing Rinsed/ Rinsed/ Irrigated with Irrigated with Saline Saline -Foul Odor after Cleansing No No -Bioengineered Tissue Yes Yes -Type of Bioengineered Tissue Epifix 18mm Epifix 18mm Disc Disc -Expiration Date 03/01/25 03/01/25 -Product Lot Number [id number] -Percent Used 100 100 -Lot number of Saline Used [id number] -Bleeding Controlled with Pressure Pressure -Offloading No Yes -Type of Offloading Knee Walker -Treatment Response Procedure Procedure Tolerated Well Tolerated Well -Debridement - Subq, 1st 20sq cm No No -Apply Skin Sub - 1st 25 sq cm - Feet 1 1 -Epifix 18mm Disc 3 3 Query Text:18mm = 3 Pain Scale: 0-10 Numeric Is Patient Pain Free? Yes Yes - Nurse 3 - General Ulcer D/C NN Start: 07/05/20 10:32 Freq: Status: Active Protocol: Activity Type Activity Date Activity User E-Sign Co-Sign Detail Recorded Client Recorded Date Recorded By Document 07/05/20 11:14 [id number] 07/05/20 11:14 Document 07/12/20 11:07 [id number] 07/12/20 11:08 07/05/20 07/12/20 11:14 11:07 Wound Care Nurse 3 #1 L Heel -Ulcer Cleansing Rinsed/ Irrigated with Saline -Foul Odor after Cleansing No -Primary Dressing Applied Mepilex Border Mepilex Border -Mepilex Border 1 1 Left -Compression Wrap Surepress ($) Pain Scale: 0-10 Numeric Is Patient Pain Free? Yes Yes WC - Visit Discharge Discharge Condition Stable Stable Ambulatory Status Wheelchair Walker, Wheelchair Transportation Private Auto Private Auto Medication Reconcilliation completed & Yes Yes provided to patient/care provider Clinical Summary of Care Provided Yes Yes Wound debrided: Posterior heel Laterality: Left Wound Grade/Stage: Glasgow 1 Type of Debridement: Excisional debridement Anesthesia Used: 4% Lidocaine Solution Depth: in the subcutaneous layer Percentage of wound debrided: 100 Instrument Used: 5mm curette Tissue Removed: Tissue removed includes fibrous, devitalized, biofilm, and slough tissue Severity: Fat Layer Exposed Amount of bleeding with debridement: Moderate Bleeding Controlled with: Pressure Patient tolerated procedure well Assessment/Plan Active Problems (Last Reviewed 12/15/19 @ 18:[address] Tri Terry, DO) Pressure ulcer of left heel, stage 4 (Chronic) Type II diabetes mellitus (Chronic) Assessment: left heel ulcer-Glasgow 1 (formally Glasgow 3). left anterior ankle ulcer?healed. DM with hyperglycemia and neuropathy. Hx osteomyelitis left calcaneus Plan: Patient seen and examined with boyfriend present. Wound noted to have improved. Patient has no new pedal complaints. She relates that the anterior ankle is doing much better less dry skin less redness since changing outer dressing. Patient has history of osteomyelitis with ulcer probing to bone with hospital stay and course of IV antiboitics. Patient wished to avoid surgical resection. Patient has since finished course of antibiotics. heel wound to left foot were sharply debrided without incident after verbal consent was obtained. Patient encouraged to lotion anterior ankle left area skin is very dry as well as to pad area well to prevent future breakdown with dressing changes as area is dry and red from irritation much improved since switching to Mepilex border dressing for heel wound. Patient to continue offloading heel. Patient has offloaded heel surgical shoe and prevalon boot for offloading. Patient had recent LEAS showing a left RONIT of 1.2 and TBI of 0.74 with triphasic waveforms. Discussed importance of offloading, blood sugar control, diet, and proper wound care to optimize healing potential. Discussed seeing a branding machine tender for education on proper nutrition. Patient relates she saw one last year. Continue wound care. Educated patient on signs and symptoms of infection to watch out for and to contact office or go to ED if seen. Today application of epifix was applied. I recommend application of advanced wound healing product to the left foot. Prior authorization was confirmed. The indications, benefits, anticipated application and healing time management were reviewed in detail. Verbal consent was obtained in the procedure for today. Site was debrided and graft was applied according to standard protocol and was further secured with wound veil and Steri-Strips. Anterior ankle was moisturized. This was less graft with the patient for the patient. If wound still remains we will continue with local wound care to finish the healing process. Patient to follow up in 1 week. This note was generated with [employer] dictation software. It may contain incorrect words, spelling, and punctuation that were not noted in checking the note before signing.
[2020-07-19 10:20] VITALS: BP 120/73; PULSE 77; RESP 18; TEMP 36.4; BMI 23.3
--- NOTE | 2020-07-19 12:35 | PN.PCM_ITS ---
(1) Non-pressure chronic ulcer of other part of left foot with fat layer exposed Status: Acute Code(s): L97.522 - Non-pressure chronic ulcer of other part of left foot with fat layer exposed (2) Non-pressure chronic ulcer of other part of right foot with fat layer exposed Status: Acute Code(s): L97.512 - Non-pressure chronic ulcer of other part of right foot with fat layer exposed (3) Pressure ulcer of left heel, stage 4 Status: Chronic Code(s): L89.624 - Pressure ulcer of left heel, stage 4 (4) Ulcer of left ankle Status: Resolved Qualifiers: Code(s): L97.329 - Non-pressure chronic ulcer of left ankle with unspecified severity (5) Type II diabetes mellitus Status: Chronic Qualifiers: Diabetes mellitus complication status: with neurologic complications Diabetes mellitus complication detail: with polyneuropathy Code(s): E11.9 - Type 2 diabetes mellitus without complications (6) Osteomyelitis Status: Resolved Qualifiers: Osteomyelitis location: foot Laterality: left Code(s): M86.9 - Osteomyelitis, unspecified Type of Wound Date of Service: 07/19/20 Chief Complaint: left heel ulcer. left ankle ulcer- healed History of Wound: In October 2019, patient had rubbing in shoes while shopping which led to a blister that developed into an ulceration. Patient was then seen in my office for wound care. Patient then became infected and was admitted to the hospital. Patient was noted to have OM on MRI. Patient wanted to avoid surgery so a custodial course of appropriate IV antibiotics was the treatment chosen. Patient was also noted to have hyperglycemia and has worked with hospitalist and PCP to try to get better control. Blood sugar levels remain elevated. Patient also had LEAS obtained in the hospital which suggested patient had the proper blood flow to allow healing. Patient has since finished custodial course of antibiotics. Patient has since been seen on a weekly basis in office with progression and regression of wound noted over the weeks. Patient has tried various dressing options including wet to dry and santyl. The most progress was noted with Santyl but patient ran out and was unable to refill due to insurance issues. During which time the wound regressed. She also has an offloading surgical shoe and offloading boot to relieve pressure. Patient care is henceforth being carried out at the wound care center. Patient not currently on any antibiotics. Patient has had some issues getting to the office last few weeks largely due to other transportation issues and the weather. Patient relates no other concerns or problems. Patient has since began skin graft aplications significant improvement is been noted to her foot overall. Patient has finished engraft applications with some very small remaining wound noted to left heel. Patient has new wounds noted to bilateral third digits Progress of Wound: heel ulcer noted to be smaller in size with less depth, improved. New wounds noted to left third toe and right third toe no signs of infection Subjective: Patient seen and examined resting comfortably. Patient denies any new pedal complaints. Patient denies any nausea, fever, chills, chest pain, shortness of breath, cough, streaking, purulence, vomiting. Patient relates new wounds to bilateral third digits she is not sure how this happened except that she was little more active this past week - Physical Exam Vital Signs Temp Pulse Resp BP 97.5 F L 77 18 120/73 07/19/20 10:20 07/19/20 10:20 07/19/20 10:20 07/19/20 10:20 General: Alert, Oriented x3 HEENT: Atraumatic Extremities: No clubbing, No cyanosis, No edema, Capillary Refill Less than 3 Seconds, No Calf Tenderness, Peripheral Pulses Normal Skin: Ulcer/ Wound - Left posterior heel, bilateral third digits. No malodor, erythema, purulence, probing to bone, streaking, fluctuation, crepitus, or other signs of infection. Skin is atrophic and hairless. Granular base Wound Measurements and Assessment WC - Nurse 1 - General Ulcer Measurement Start: 07/05/20 10:32 Freq: Status: Active Protocol: Activity Type Activity Date Activity User E-Sign Co-Sign Detail Recorded Client Recorded Date Recorded By Document 07/19/20 10:20 DL [id number] 07/19/20 10:33 DL 07/19/20 10:20 Wound Center Nurse 1 [Ulcer Assessment] #1 L Heel -Current Size (cm) - Length 0.5 -Current Size (cm) - Width 0.4 -Current Size (cm) - Depth 0.1 -Total Square Cm 0.20 -Photo Taken No -Exudate Amt Small -Wound Margin Distinct, Outline Attached -Granulation Amt Small (1-33%) -Granulation Quality [place] -Necrosis Amt Small (1-33%) -Necrotic Tissue Type Adherent Slough -Structure Exposed N/A -Texture (Bren-wound Skin Appearance) Scarring -Moisture (Bren-wound Skin Appearance Maceration ) -Color (Bren-wound Skin Appearance) No Abnormality -Temperature (Bren-wound Skin No Abnormality Appearance) (Pt Warm) -Tenderness on Palpation (Bren-wound No Skin Appearance) -Ulcer Cleansing Wound Cleanser -Foul Odor after Cleansing No -Anesthetic Used 4% Lidocaine Solution WC - Nurse 2 - General Ulcer CM Notes Start: 07/05/20 10:32 Freq: Status: Active Protocol: Activity Type Activity Date Activity User E-Sign Co-Sign Detail Recorded Client Recorded Date Recorded By Document 07/19/20 11:11 JAUN [id number] 07/19/20 11:15 JAUN 07/19/20 11:11 Wound Center Nurse 2 [Procedure/Treatment] 4-left 3rd toe -Time 11:14 -Correct Patient Yes -Correct Side, Site, Position Yes -Correct Procedure Yes -Procedure Performed Yes -Type of Procedure Debridement -Clinical Debridement Subcutaneous -Tissue Removed Subcutaneous -Post Debridement (cm) - Length 1 -Post Debridement (cm) - Width 1 -Post Debridement (cm) - Depth 0.1 -Total Square (Post) (cm) 1 -Area of Debridement (cm) - Length 1 -Area of Debridement (cm) - Width 1 -Total Square (Area) (cm) 1 -Tunneling No -Undermining/Tunneling No -Circular Undermining No -Wound/Ulcer Outcome Not Healed -Ulcer Cleansing Rinsed/ Irrigated with Saline -Foul Odor after Cleansing No -Bioengineered Tissue No -Bleeding Controlled with Pressure -Offloading No -Treatment Response Procedure Tolerated Well -Debridement - Subq, 1st 20sq cm No 3-right 3rd toe -Time 11:14 -Correct Patient Yes -Correct Side, Site, Position Yes -Correct Procedure Yes -Procedure Performed Yes -Type of Procedure Debridement -Clinical Debridement Subcutaneous -Tissue Removed Subcutaneous -Post Debridement (cm) - Length 0.3 -Post Debridement (cm) - Width 0.3 -Post Debridement (cm) - Depth 0.1 -Total Square (Post) (cm) 0.09 -Area of Debridement (cm) - Length 0.3 -Area of Debridement (cm) - Width 0.3 -Total Square (Area) (cm) 0.09 -Tunneling No -Undermining/Tunneling No -Circular Undermining No -Wound/Ulcer Outcome Not Healed -Ulcer Cleansing Rinsed/ Irrigated with Saline -Foul Odor after Cleansing No -Bioengineered Tissue No -Bleeding Controlled with Pressure -Offloading No -Treatment Response Procedure Tolerated Well -Debridement - Subq, 1st 20sq cm No #1 L Heel -Time 11:12 -Correct Patient Yes -Correct Side, Site, Position Yes -Correct Procedure Yes -Procedure Performed Yes -Type of Procedure Debridement -Clinical Debridement Subcutaneous -Tissue Removed Subcutaneous -Post Debridement (cm) - Length 0.7 -Post Debridement (cm) - Width 0.4 -Post Debridement (cm) - Depth 0.1 -Total Square (Post) (cm) 0.28 -Area of Debridement (cm) - Length 0.7 -Area of Debridement (cm) - Width 0.4 -Total Square (Area) (cm) 0.28 -Tunneling No -Undermining/Tunneling No -Circular Undermining No -Wound/Ulcer Outcome Not Healed -Ulcer Cleansing Rinsed/ Irrigated with Saline -Foul Odor after Cleansing No -Bioengineered Tissue No -Bleeding Controlled with Pressure -Offloading No -Treatment Response Procedure Tolerated Well -Debridement - Subq, 1st 20sq cm Yes [See Physician Procedure note for Specifics] Pain Scale: 0-10 Numeric [Pain] -Is Patient Pain Free? Yes Musculoskeletal: Tenderness - Ulceration sites Neurological: - - Decrease in epicritic sensation Psych/Mental Status: Normal Affect, Appropriate Debridement Note Post-Debridement Measurements/Treatment WC - Nurse 2 - General Ulcer CM Notes Start: 07/05/20 10:32 Freq: Status: Active Protocol: Activity Type Activity Date Activity User E-Sign Co-Sign Detail Recorded Client Recorded Date Recorded By Document 07/05/20 11:11 JAUN [id number] 07/05/20 11:13 Document 07/12/20 11:01 JAUN [id number] 07/12/20 11:05 Document 07/19/20 11:11 JAUN [id number] 07/19/20 11:15 07/05/20 07/12/20 07/19/20 11:11 11:01 11:11 Wound Center Nurse 2 4-left 3rd toe -Time 11:14 -Correct Patient Yes -Correct Side, Site, Position Yes -Correct Procedure Yes -Procedure Performed Yes -Type of Procedure Debridement -Clinical Debridement Subcutaneous -Tissue Removed Subcutaneous -Post Debridement (cm) - Length 1 -Post Debridement (cm) - Width 1 -Post Debridement (cm) - Depth 0.1 -Total Square (Post) (cm) 1 -Area of Debridement (cm) - Length 1 -Area of Debridement (cm) - Width 1 -Total Square (Area) (cm) 1 -Tunneling No -Undermining/Tunneling No -Circular Undermining No -Wound/Ulcer Outcome Not Healed -Ulcer Cleansing Rinsed/ Irrigated with Saline -Foul Odor after Cleansing No -Bioengineered Tissue No -Bleeding Controlled with Pressure -Offloading No -Treatment Response Procedure Tolerated Well -Debridement - Subq, 1st 20sq cm No 3-right 3rd toe -Time 11:14 -Correct Patient Yes -Correct Side, Site, Position Yes -Correct Procedure Yes -Procedure Performed Yes -Type of Procedure Debridement -Clinical Debridement Subcutaneous -Tissue Removed Subcutaneous -Post Debridement (cm) - Length 0.3 -Post Debridement (cm) - Width 0.3 -Post Debridement (cm) - Depth 0.1 -Total Square (Post) (cm) 0.09 -Area of Debridement (cm) - Length 0.3 -Area of Debridement (cm) - Width 0.3 -Total Square (Area) (cm) 0.09 -Tunneling No -Undermining/Tunneling No -Circular Undermining No -Wound/Ulcer Outcome Not Healed -Ulcer Cleansing Rinsed/ Irrigated with Saline -Foul Odor after Cleansing No -Bioengineered Tissue No -Bleeding Controlled with Pressure -Offloading No -Treatment Response Procedure Tolerated Well -Debridement - Subq, 1st 20sq cm No #1 L Heel -Time 11:12 11:04 11:12 -Correct Patient Yes Yes Yes -Correct Side, Site, Position Yes Yes Yes -Correct Procedure Yes Yes Yes -Procedure Performed Yes Yes Yes -Type of Procedure Debridement Debridement Debridement -Clinical Debridement Subcutaneous Subcutaneous Subcutaneous -Tissue Removed Subcutaneous Subcutaneous Subcutaneous -Post Debridement (cm) - Length 1.5 1.4 0.7 -Post Debridement (cm) - Width 0.6 0.5 0.4 -Post Debridement (cm) - Depth 0.1 0.1 0.1 -Total Square (Post) (cm) 0.90 0.70 0.28 -Area of Debridement (cm) - Length 1.5 1.4 0.7 -Area of Debridement (cm) - Width 0.6 0.5 0.4 -Total Square (Area) (cm) 0.90 0.70 0.28 -Tunneling No No No -Undermining/Tunneling No No No -Circular Undermining No No No -Wound/Ulcer Outcome Not Healed Not Healed Not Healed -Ulcer Cleansing Rinsed/ Rinsed/ Rinsed/ Irrigated with Irrigated with Irrigated with Saline Saline Saline -Foul Odor after Cleansing No No No -Bioengineered Tissue Yes Yes No -Type of Bioengineered Tissue Epifix 18mm Epifix 18mm Disc Disc -Expiration Date 03/01/25 03/01/25 -Product Lot Number [id number] -Percent Used 100 100 -Lot number of Saline Used [id number] -Bleeding Controlled with Pressure Pressure Pressure -Offloading No Yes No -Type of Offloading Knee Walker -Treatment Response Procedure Procedure Procedure Tolerated Well Tolerated Well Tolerated Well -Debridement - Subq, 1st 20sq cm No No Yes -Apply Skin Sub - 1st 25 sq cm - Feet 1 1 -Epifix 18mm Disc 3 3 Pain Scale: 0-10 Numeric Is Patient Pain Free? Yes Yes Yes - Nurse 3 - General Ulcer D/C NN Start: 07/05/20 10:32 Freq: Status: Active Protocol: Activity Type Activity Date Activity User E-Sign Co-Sign Detail Recorded Client Recorded Date Recorded By Document 07/05/20 11:14 [id number] 07/05/20 11:14 Document 07/12/20 11:07 [id number] 07/12/20 11:08 07/05/20 07/12/20 11:14 11:07 Wound Care Nurse 3 #1 L Heel -Ulcer Cleansing Rinsed/ Irrigated with Saline -Foul Odor after Cleansing No -Primary Dressing Applied Mepilex Border Mepilex Border -Mepilex Border 1 1 Left -Compression Wrap Surepress ($) Pain Scale: 0-10 Numeric Is Patient Pain Free? Yes Yes - Visit Discharge Discharge Condition Stable Stable Ambulatory Status Wheelchair Walker, Wheelchair Transportation Private Auto Private Auto Medication Reconcilliation completed & Yes Yes provided to patient/care provider Clinical Summary of Care Provided Yes Yes Wound debrided: Heel Laterality: Left Wound Grade/Stage: [place] 1 Type of Debridement: Excisional debridement Anesthesia Used: 4% Lidocaine Solution Depth: in the subcutaneous layer Percentage of wound debrided: 100 Instrument Used: 3mm curette Tissue Removed: Tissue removed includes fibrous, devitalized, biofilm, and slough tissue Severity: Fat Layer Exposed Amount of bleeding with debridement: Mild Bleeding Controlled with: Pressure Patient tolerated procedure well - Additional Wound Wound debrided: Third toe Laterality: Left Wound Grade/Stage: [place] 1 Type of Debridement: Excisional debridement Anesthesia Used: 4% Lidocaine Solution Depth: in the subcutaneous layer Percentage of wound debrided: 100 Instrument Used: 3mm curette Tissue Removed: Tissue removed includes fibrous, devitalized, biofilm, and slough tissue Severity: Fat Layer Exposed Amount of bleeding with debridement: Mild Bleeding Controlled with: Pressure Patient tolerated procedure: Patient tolerated procedure well - Additional Wound Wound debrided: Third toe Laterality: Right Wound Grade/Stage: [place] 1 Type of Debridement: Excisional debridement Anesthesia Used: 4% Lidocaine Solution Depth: in the subcutaneous layer Percentage of wound debrided: 100 Instrument Used: 3mm curette Tissue Removed: Tissue removed includes fibrous, devitalized, biofilm, and slough tissue Severity: Fat Layer Exposed Amount of bleeding with debridement: Mild Bleeding Controlled with: Pressure Patient tolerated procedure: Patient tolerated procedure well Assessment/Plan Active Problems (Last Reviewed 12/15/19 @ 18:[address] Tri Terry, DO) Pressure ulcer of left heel, stage 4 (Chronic) Non-pressure chronic ulcer of other part of left foot with fat layer exposed (Acute) Non-pressure chronic ulcer of other part of right foot with fat layer exposed (Acute) Type II diabetes mellitus (Chronic) Assessment: left heel ulcer-[place] 1 (formally [place] 3). New left third digit ulceration-[place] 1. New right third digit ulceration-[place] 1. left anterior ankle ulcer?healed. DM with hyperglycemia and neuropathy. Hx osteomyelitis left calcaneus Plan: Patient seen and examined with boyfriend present. Wound noted to have improved. Patient relates being more active this past week. Patient has new wounds to bilateral third digits noted without signs of infection. She relates that the anterior ankle is doing much better less dry skin less redness since changing outer dressing. Patient has history of osteomyelitis with ulcer probing to bone with hospital stay and course of IV antiboitics. Patient wished to avoid surgical resection. Patient has since finished course of antibiotics. heel wound to left foot and bilateral third digits were sharply debrided without incident after verbal consent was obtained. Patient encouraged to lotion anterior ankle left area skin is very dry as well as to pad area well to prevent future breakdown with dressing changes as area is dry and red from irritation much improved since switching to Mepilex border dressing for heel wound. Patient to continue offloading heel. Patient has offloaded heel surgical shoe and prevalon boot for offloading. Patient had recent LEAS showing a left RONIT of 1.2 and TBI of 0.74 with triphasic waveforms. Discussed importance of offloading, blood sugar control, diet, and proper wound care to optimize healing potential. Discussed seeing a dispatcher street department for education on proper nutrition. Patient relates she saw one last year. Continue daily wound care. Patient is to start Samantha dressing changes as she has finished her epi fix graft applications. Educated patient on signs and symptoms of infection to watch out for and to contact office or go to ED if seen. Anterior ankle was moisturized. Patient to follow up in 1 week. This note was generated with [employer] dictation software. It may contain incorrect words, spelling, and punctuation that were not noted in checking the note before signing. The problems addressed require a low medical decision making level which includes two or more minor problems, a stable chronic illness, or an acute uncomplicated illness or injury.
[2020-07-26 10:15] VITALS: BP 112/61; PULSE 71; TEMP 35.9; BMI 23.3
--- NOTE | 2020-07-26 17:08 | PCM.WC.PN ---
History of Present Illness Date of Service: 07/26/20 Chief Complaint: left heel ulcer left ankle ulcer- healed History of Wound: In October 2019, patient had rubbing in shoes while shopping which led to a blister that developed into an ulceration. Patient was then seen in my office for wound care. Patient then became infected and was admitted to the hospital. Patient was noted to have OM on MRI. Patient wanted to avoid surgery so a correction course of appropriate IV antibiotics was the treatment chosen. Patient was also noted to have hyperglycemia and has worked with hospitalist and PCP to try to get better control. Blood sugar levels remain elevated. Patient also had LEAS obtained in the hospital which suggested patient had the proper blood flow to allow healing. Patient has since finished correction course of antibiotics. Patient has since been seen on a weekly basis in office with progression and regression of wound noted over the weeks. Patient has tried various dressing options including wet to dry and santyl. The most progress was noted with Santyl but patient ran out and was unable to refill due to insurance issues. During which time the wound regressed. She also has an offloading surgical shoe and offloading boot to relieve pressure. Patient care is henceforth being carried out at the wound care center. Patient not currently on any antibiotics. Patient has since began skin graft aplications significant improvement is been noted to her foot overall. Patient has finished epifix graft applications with some very small remaining wound noted to left heel. Patient has new wounds noted to bilateral third digits. The right 3rd digit wound has healed. Her left ankle ulcer remains healed Subjective Subjective: Patient is resting comfortably and denies any new pedal complains. Patient denies any nausea, fever, vomiting, chills, chest pain, shortness of breath, streaking, or purulence Objective Data Objective Data Vital Signs: Vital Signs Temp Pulse Resp BP 96.6 F L 71 18 112/61 07/26/20 10:15 07/26/20 10:15 07/19/20 10:20 07/26/20 10:15 Oxygen Delivery Method Room Air Weight: 63.796 kg Body Mass Index (BMI) 23.3 Finger Stick Blood Glucose 412 Assessment & Plan Assessment/Plan (1) Pressure ulcer of left heel, stage 4: Status: Chronic Code(s): L89.624 - Pressure ulcer of left heel, stage 4 (2) Non-pressure chronic ulcer of other part of left foot with fat layer exposed: Status: Acute Code(s): L97.522 - Non-pressure chronic ulcer of other part of left foot with fat layer exposed (3) Type II diabetes mellitus: Status: Chronic Code(s): E11.9 - Type 2 diabetes mellitus without complications Qualifiers: Diabetes mellitus complication detail: with polyneuropathy Diabetes mellitus complication status: with neurologic complications Diabetes mellitus correction insulin use: unspecified intermediate manager insulin use status Qualified Code(s): E11.42 - Type 2 diabetes mellitus with diabetic polyneuropathy Plan: Assessment: left heel ulcer-Glasgow 1 (formally Glasgow 3). New left third digit ulceration-Glasgow 1. New right third digit ulceration-Glasgow 1- healed. left anterior ankle ulcer?healed. DM with hyperglycemia and neuropathy. Hx osteomyelitis left calcaneus Plan: Patient seen and examined with boyfriend present. Wounds noted to have improved largely. Wound to right 3rd toe has healed. Maceration with small skin tear noted to heel wound. She relates that the anterior ankle is doing much better less dry skin less redness since changing outer dressing. Patient has history of osteomyelitis with ulcer probing to bone with hospital stay and course of IV antiboitics. Patient wished to avoid surgical resection. Patient has since finished course of antibiotics. heel wound to left foot and bilateral third digits were sharply debrided without incident after verbal consent was obtained. Patient encouraged to lotion anterior ankle left area skin is very dry as well as to pad area well to prevent future breakdown with dressing changes as area is dry and red from irritation much improved since switching to Mepilex border dressing for heel wound. Patient to continue offloading heel. Patient has offloaded heel surgical shoe and prevalon boot for offloading. Patient had recent LEAS showing a left RONIT of 1.2 and TBI of 0.74 with triphasic waveforms. Discussed importance of offloading, blood sugar control, diet, and proper wound care to optimize healing potential. Discussed seeing a boot and saddle repair person for education on proper nutrition. Patient relates she saw one last year. Continue daily wound care. Patient is to start Samantha dressing changes as she has finished her epi fix graft applications. Educated patient on signs and symptoms of infection to watch out for and to contact office or go to ED if seen. Patient to follow up in 1 week. This note was generated with [employer] software. It may contain incorrect words, spelling, and punctuation that were not noted in checking the note before signing. The problems addressed require a low medical decision making level which includes two or more minor problems, a stable chronic illness, or an acute uncomplicated illness or injury. Physical Exam Const alert and no apparent distress General Appearance: cooperative and comfortable HEENT Head and Scalp: atraumatic Resp normal respiratory effort Effort and Inspection: able to speak in complete sentences Cardio Peripheral Pulses: posterior tibial pulses present and dorsalis pedis pulses present Extremity normal capillary refill and no calf tenderness General Extremity: edema bilateral lower extremity and no tenderness to palpation of joints or extremities; Negative for clubbing or cyanosis Peripheral Pulses: Yes posterior tibial pulses present bilateral diminished and dorsalis pedis pulses present bilateral diminished Skin General Skin Exam: dry skin; Negative for ecchymosis, erythema, eschar, pallor or dermatitis Rashes: no rashes Wounds: wounds noted Wound Narrative: ulcers noted to left heel and left medial 3rd digit No malodor, erythema, purulence, probing to bone, streaking, fluctuation, crepitus, or other signs of infection. Skin is atrophic and hairless. Granular base. Mild maceration. Small skin tear noted to heel wound. Neuro Gait (Neuro): antalgic and assistive device used other (rolleraid) Sensory Exam: extremities light-touch: decreased Motor Exam: strength 5/5 throughout and general weakness Psych Appearance: appropriate Attitude: calm Debridement Note Debridement Note Post-Debridement Measurements and Additional Note: Post-Debridement Measurements/Treatment WC - Nurse 2 - General Ulcer CM Notes Start: 07/05/20 10:32 Freq: Status: Active Protocol: Activity Type Activity Date Activity User E-Sign Co-Sign Detail Recorded Client Recorded Date Recorded By Document 07/05/20 11:11 [id number] 07/05/20 11:13 Document 07/12/20 11:01 [id number] 07/12/20 11:05 Document 07/19/20 11:11 [id number] 07/19/20 11:15 Document 07/26/20 10:35 [id number] 07/26/20 10:41 07/05/20 07/12/20 07/19/20 11:11 11:01 11:11 Wound Center Nurse 2 4-left 3rd toe -Time 11:14 -Correct Patient Yes -Correct Side, Site, Position Yes -Correct Procedure Yes -Procedure Performed Yes -Type of Procedure Debridement -Clinical Debridement Subcutaneous -Tissue Removed Subcutaneous -Post Debridement (cm) - Length 1 -Post Debridement (cm) - Width 1 -Post Debridement (cm) - Depth 0.1 -Total Square (Post) (cm) 1 -Area of Debridement (cm) - Length 1 -Area of Debridement (cm) - Width 1 -Total Square (Area) (cm) 1 -Tunneling No -Undermining/Tunneling No -Circular Undermining No -Wound/Ulcer Outcome Not Healed -Ulcer Cleansing Rinsed/ Irrigated with Saline -Foul Odor after Cleansing No -Bioengineered Tissue No -Bleeding Controlled with Pressure -Offloading No -Treatment Response Procedure Tolerated Well -Debridement - Subq, 1st 20sq cm No 3-right 3rd toe -Time 11:14 -Correct Patient Yes -Correct Side, Site, Position Yes -Correct Procedure Yes -Procedure Performed Yes -Type of Procedure Debridement -Clinical Debridement Subcutaneous -Tissue Removed Subcutaneous -Post Debridement (cm) - Length 0.3 -Post Debridement (cm) - Width 0.3 -Post Debridement (cm) - Depth 0.1 -Total Square (Post) (cm) 0.09 -Area of Debridement (cm) - Length 0.3 -Area of Debridement (cm) - Width 0.3 -Total Square (Area) (cm) 0.09 -Tunneling No -Undermining/Tunneling No -Circular Undermining No -Wound/Ulcer Outcome Not Healed -Ulcer Cleansing Rinsed/ Irrigated with Saline -Foul Odor after Cleansing No -Bioengineered Tissue No -Bleeding Controlled with Pressure -Offloading No -Treatment Response Procedure Tolerated Well -Debridement - Subq, 1st 20sq cm No #1 L Heel -Time 11:12 11:04 11:12 -Correct Patient Yes Yes Yes -Correct Side, Site, Position Yes Yes Yes -Correct Procedure Yes Yes Yes -Procedure Performed Yes Yes Yes -Type of Procedure Debridement Debridement Debridement -Clinical Debridement Subcutaneous Subcutaneous Subcutaneous -Tissue Removed Subcutaneous Subcutaneous Subcutaneous -Post Debridement (cm) - Length 1.5 1.4 0.7 -Post Debridement (cm) - Width 0.6 0.5 0.4 -Post Debridement (cm) - Depth 0.1 0.1 0.1 -Total Square (Post) (cm) 0.90 0.70 0.28 -Area of Debridement (cm) - Length 1.5 1.4 0.7 -Area of Debridement (cm) - Width 0.6 0.5 0.4 -Total Square (Area) (cm) 0.90 0.70 0.28 -Tunneling No No No -Undermining/Tunneling No No No -Circular Undermining No No No -Wound/Ulcer Outcome Not Healed Not Healed Not Healed -Ulcer Cleansing Rinsed/ Rinsed/ Rinsed/ Irrigated with Irrigated with Irrigated with Saline Saline Saline -Foul Odor after Cleansing No No No -Bioengineered Tissue Yes Yes No -Type of Bioengineered Tissue Epifix 18mm Epifix 18mm Disc Disc -Expiration Date 03/01/25 03/01/25 -Product Lot Number [id number] -Percent Used 100 100 -Lot number of Saline Used [id number] -Bleeding Controlled with Pressure Pressure Pressure -Offloading No Yes No -Type of Offloading Knee Walker -Treatment Response Procedure Procedure Procedure Tolerated Well Tolerated Well Tolerated Well -Debridement - Subq, 1st 20sq cm No No Yes -Apply Skin Sub - 1st 25 sq cm - Feet 1 1 -Epifix 18mm Disc 3 3 Pain Scale: 0-10 Numeric Is Patient Pain Free? Yes Yes Yes 07/26/20 10:35 Wound Center Nurse 2 4-left 3rd toe -Time 10:40 -Correct Patient Yes -Correct Side, Site, Position Yes -Correct Procedure Yes -Procedure Performed Yes -Type of Procedure Debridement -Clinical Debridement Subcutaneous -Tissue Removed Subcutaneous -Post Debridement (cm) - Length 0.7 -Post Debridement (cm) - Width 1 -Post Debridement (cm) - Depth 0.1 -Total Square (Post) (cm) 0.7 -Area of Debridement (cm) - Length 0.7 -Area of Debridement (cm) - Width 1 -Total Square (Area) (cm) 0.7 -Tunneling No -Undermining/Tunneling No -Circular Undermining No -Wound/Ulcer Outcome Not Healed -Ulcer Cleansing Rinsed/ Irrigated with Saline -Foul Odor after Cleansing No -Bioengineered Tissue No -Bleeding Controlled with Pressure -Offloading No -Treatment Response Procedure Tolerated Well -Debridement - Subq, 1st 20sq cm No 3-right 3rd toe -Time -Correct Patient No -Correct Side, Site, Position No -Correct Procedure No -Procedure Performed No -Type of Procedure -Clinical Debridement -Tissue Removed -Post Debridement (cm) - Length 0 -Post Debridement (cm) - Width 0 -Post Debridement (cm) - Depth 0 -Total Square (Post) (cm) 0 -Area of Debridement (cm) - Length 0 -Area of Debridement (cm) - Width 0 -Total Square (Area) (cm) 0 -Tunneling -Undermining/Tunneling -Circular Undermining -Wound/Ulcer Outcome Healed- Epithelialized -Ulcer Cleansing -Foul Odor after Cleansing -Bioengineered Tissue -Bleeding Controlled with -Offloading -Treatment Response -Debridement - Subq, 1st 20sq cm #1 L Heel -Time 10:37 -Correct Patient Yes -Correct Side, Site, Position Yes -Correct Procedure Yes -Procedure Performed Yes -Type of Procedure Debridement -Clinical Debridement Subcutaneous -Tissue Removed Subcutaneous -Post Debridement (cm) - Length 1 -Post Debridement (cm) - Width 0.7 -Post Debridement (cm) - Depth 0.1 -Total Square (Post) (cm) 0.7 -Area of Debridement (cm) - Length 1 -Area of Debridement (cm) - Width 0.7 -Total Square (Area) (cm) 0.7 -Tunneling No -Undermining/Tunneling No -Circular Undermining No -Wound/Ulcer Outcome Not Healed -Ulcer Cleansing Rinsed/ Irrigated with Saline -Foul Odor after Cleansing No -Bioengineered Tissue No -Type of Bioengineered Tissue -Expiration Date -Product Lot Number -Percent Used -Lot number of Saline Used -Bleeding Controlled with Pressure -Offloading Yes -Type of Offloading Surgical Shoe -Treatment Response Procedure Tolerated Well -Debridement - Subq, 1st 20sq cm Yes -Apply Skin Sub - 1st 25 sq cm - Feet -Epifix 18mm Disc Pain Scale: 0-10 Numeric Is Patient Pain Free? Yes WC - Nurse 3 - General Ulcer D/C NN Start: 07/05/20 10:32 Freq: Status: Active Protocol: Activity Type Activity Date Activity User E-Sign Co-Sign Detail Recorded Client Recorded Date Recorded By Document 07/05/20 11:14 JAUN [id number] 07/05/20 11:14 JAUN Document 07/12/20 11:07 JAUN [id number] 07/12/20 11:08 JF Edit Result 07/12/20 11:07 JF (1) [id number] 07/12/20 11:11 JF Document 07/26/20 10:53 KR [id number] 07/26/20 10:55 KR (1) Left - Compression Wrap => Surepress ($) 07/05/20 07/12/20 07/26/20 11:14 11:07 10:53 Wound Care Nurse 3 4-left 3rd toe -Ulcer Cleansing Rinsed/ Irrigated with Saline -Primary Dressing Applied Promogran Samantha Matter -Primary Dressing Covered/Secured with Dry Gauze, Secured with Tape -Promogran Samantha Matter 1 #1 L Heel -Ulcer Cleansing Rinsed/ Rinsed/ Irrigated with Irrigated with Saline Saline -Foul Odor after Cleansing No -Primary Dressing Applied Mepilex Border Mepilex Border -Primary Dressing Covered/Secured with Dry Gauze, Secured with Tape -Mepilex Border 1 1 Left -Compression Wrap Surepress ($) Surepress ($) Pain Scale: 0-10 Numeric Is Patient Pain Free? Yes Yes Yes WC - Visit Discharge Discharge Condition Stable Stable Stable Ambulatory Status Wheelchair Walker, Walker Wheelchair Transportation Private Auto Private Auto Private Auto Accompanied by Medication Reconcilliation completed & Yes Yes provided to patient/care provider Clinical Summary of Care Provided Yes Yes Wound debrided: heel and 3rd toe Laterality: Left Wound Grade/Stage: glasgow 1 Type of Debridement: Excisional debridement Anesthesia Used: 4% Lidocaine Solution Depth: in the subcutaneous layer Percentage of wound debrided: 100 Instrument Used: 3mm curette Tissue Removed: Tissue removed includes fibrous, devitalized, biofilm, and slough tissue Severity: Fat Layer Exposed Amount of bleeding with debridement: Mild Bleeding Controlled with: Pressure Patient tolerated procedure: Patient tolerated procedure well
--- NOTE | 2020-07-28 14:11 | PN.PCM_ITS ---
History of Present Illness Date of Service: 07/28/20 Chief Complaint: left heel ulcer left ankle ulcer- healed History of Wound: In October 2019, patient had rubbing in shoes while shopping which led to a blister that developed into an ulceration. Patient was then seen in my office for wound care. Patient then became infected and was admitted to the hospital. Patient was noted to have OM on MRI. Patient wanted to avoid surgery so a assisted course of appropriate IV antibiotics was the treatment chosen. Patient was also noted to have hyperglycemia and has worked with hospitalist and PCP to try to get better control. Blood sugar levels remain elevated. Patient also had LEAS obtained in the hospital which suggested patient had the proper blood flow to allow healing. Patient has since finished assisted course of antibiotics. Patient has since been seen on a weekly basis in office with progression and regression of wound noted over the weeks. Patient has tried various dressing options including wet to dry and santyl. The most progress was noted with Santyl but patient ran out and was unable to refill due to insurance issues. During which time the wound regressed. She also has an offloading surgical shoe and offloading boot to relieve pressure. Patient care is henceforth being carried out at the wound care center. Patient not currently on any antibiotics. Patient has had some issues getting to the office last few weeks largely due to other transportation issues and the weather. Patient relates no other concerns or problems. Patient has since began skin graft aplications significant improvement is been noted to her foot overall. Patient has finished engraft applications with some very small remaining wound noted to left heel. Patient has new wounds noted to bilateral third digits Subjective Subjective: Patient is resting comfortably and denies any new pedal complains. Patient denies any nausea, fever, vomiting, chills, chest pain, shortness of breath, streaking, or purulence Objective Data Objective Data Vital Signs: Vital Signs Temp Pulse Resp BP 96.6 F L 71 18 112/61 07/26/20 10:15 07/26/20 10:15 07/19/20 10:20 07/26/20 10:15 Oxygen Delivery Method Room Air Weight: 63.796 kg Body Mass Index (BMI) 23.3 Finger Stick Blood Glucose 412 Exam Physical Exam Const alert and no apparent distress General Appearance: cooperative and comfortable HEENT Head and Scalp: atraumatic Lymph Lymphatic: no lymphedema noted Resp normal respiratory effort Effort and Inspection: able to speak in complete sentences Cardio Peripheral Pulses: posterior tibial pulses present and dorsalis pedis pulses present Extremity normal capillary refill and no calf tenderness General Extremity: edema bilateral lower extremity and no tenderness to palpation of joints or extremities; Negative for clubbing or cyanosis Peripheral Pulses: Yes posterior tibial pulses present bilateral 2+ and diminished and dorsalis pedis pulses present bilateral 2+ and diminished Skin General Skin Exam: atrophy and dry skin; Negative for ecchymosis, erythema, eschar, pallor or dermatitis Wounds: wounds noted bed, drainage serosanguineous, No malodorous, no odor and No surrounding erythema Hair: other decreased hair growth noted to lower extremities Neuro Gait (Neuro): antalgic and assistive device used Sensory Exam: extremities light-touch: decreased Assessment and Debridement #1 L Heel: Wound Measurements and Assessment WC - Nurse 1 - General Ulcer Measurement Start: 07/05/20 10:32 Freq: Status: Active Protocol: Activity Type Activity Date Activity User E-Sign Co-Sign Detail Recorded Client Recorded Date Recorded By Document 07/26/20 10:15 ELIO [id number] 07/26/20 10:24 ELIO 07/26/20 10:15 Wound Center Nurse 1 [Ulcer Assessment] 4-left 3rd toe -Current Size (cm) - Length 0.9 -Current Size (cm) - Width 0.9 -Current Size (cm) - Depth 0.1 -Total Square Cm 0.81 -Exudate Amt Small -Exudate Type Serosanguineous -Wound Margin Distinct, Outline Attached -Granulation Amt Large (67-100%) -Granulation Quality Red -Texture (Bren-wound Skin Appearance) Assessed, Scarring -Moisture (Bren-wound Skin Appearance No Abnormality, ) Assessed -Temperature (Bren-wound Skin No Abnormality Appearance) (Pt Warm) -Tenderness on Palpation (Bren-wound No Skin Appearance) -Ulcer Cleansing Rinsed/ Irrigated with Saline -Foul Odor after Cleansing No -Anesthetic Used 4% Lidocaine Solution 3-right 3rd toe -Current Size (cm) - Length 0.3 -Current Size (cm) - Width 0.2 -Current Size (cm) - Depth 0.1 -Total Square Cm 0.06 -Exudate Amt Small -Exudate Type Serosanguineous -Wound Margin Distinct, Outline Attached -Granulation Amt Large (67-100%) -Granulation Quality Red -Necrosis Amt None Present (0 %) -Texture (Bren-wound Skin Appearance) Assessed, Scarring -Moisture (Bren-wound Skin Appearance No Abnormality, ) Assessed -Color (Bren-wound Skin Appearance) No Abnormality, Assessed -Temperature (Bren-wound Skin No Abnormality Appearance) (Pt Warm) -Tenderness on Palpation (Bren-wound No Skin Appearance) -Ulcer Cleansing Rinsed/ Irrigated with Saline -Foul Odor after Cleansing No -Anesthetic Used 4% Lidocaine Solution #1 L Heel -Current Size (cm) - Length 0.8 -Current Size (cm) - Width 0.3 -Current Size (cm) - Depth 0.1 -Total Square Cm 0.24 -Exudate Amt Small -Exudate Type Serosanguineous -Wound Margin Distinct, Outline Attached -Granulation Amt Medium (34-66%) -Granulation Quality [place],Red -Necrosis Amt Medium (34-66%) -Necrotic Tissue Type Adherent Slough -Texture (Bren-wound Skin Appearance) Assessed, Scarring -Moisture (Bren-wound Skin Appearance No Abnormality, ) Assessed -Color (Bren-wound Skin Appearance) No Abnormality, Assessed -Temperature (Bren-wound Skin No Abnormality Appearance) (Pt Warm) -Tenderness on Palpation (Bren-wound No Skin Appearance) -Ulcer Cleansing Rinsed/ Irrigated with Saline -Foul Odor after Cleansing No -Anesthetic Used 4% Lidocaine Solution WC - Nurse 2 - General Ulcer CM Notes Start: 07/05/20 10:32 Freq: Status: Active Protocol: Activity Type Activity Date Activity User E-Sign Co-Sign Detail Recorded Client Recorded Date Recorded By Document 07/26/20 10:35 JAUN [id number] 07/26/20 10:41 JAUN 07/26/20 10:35 Wound Center Nurse 2 [Procedure/Treatment] 4-left 3rd toe -Time 10:40 -Correct Patient Yes -Correct Side, Site, Position Yes -Correct Procedure Yes -Procedure Performed Yes -Type of Procedure Debridement -Clinical Debridement Subcutaneous -Tissue Removed Subcutaneous -Post Debridement (cm) - Length 0.7 -Post Debridement (cm) - Width 1 -Post Debridement (cm) - Depth 0.1 -Total Square (Post) (cm) 0.7 -Area of Debridement (cm) - Length 0.7 -Area of Debridement (cm) - Width 1 -Total Square (Area) (cm) 0.7 -Tunneling No -Undermining/Tunneling No -Circular Undermining No -Wound/Ulcer Outcome Not Healed -Ulcer Cleansing Rinsed/ Irrigated with Saline -Foul Odor after Cleansing No -Bioengineered Tissue No -Bleeding Controlled with Pressure -Offloading No -Treatment Response Procedure Tolerated Well -Debridement - Subq, 1st 20sq cm No 3-right 3rd toe -Correct Patient No -Correct Side, Site, Position No -Correct Procedure No -Procedure Performed No -Post Debridement (cm) - Length 0 -Post Debridement (cm) - Width 0 -Post Debridement (cm) - Depth 0 -Total Square (Post) (cm) 0 -Area of Debridement (cm) - Length 0 -Area of Debridement (cm) - Width 0 -Total Square (Area) (cm) 0 -Wound/Ulcer Outcome Healed- Epithelialized #1 L Heel -Time 10:37 -Correct Patient Yes -Correct Side, Site, Position Yes -Correct Procedure Yes -Procedure Performed Yes -Type of Procedure Debridement -Clinical Debridement Subcutaneous -Tissue Removed Subcutaneous -Post Debridement (cm) - Length 1 -Post Debridement (cm) - Width 0.7 -Post Debridement (cm) - Depth 0.1 -Total Square (Post) (cm) 0.7 -Area of Debridement (cm) - Length 1 -Area of Debridement (cm) - Width 0.7 -Total Square (Area) (cm) 0.7 -Tunneling No -Undermining/Tunneling No -Circular Undermining No -Wound/Ulcer Outcome Not Healed -Ulcer Cleansing Rinsed/ Irrigated with Saline -Foul Odor after Cleansing No -Bioengineered Tissue No -Bleeding Controlled with Pressure -Offloading Yes -Type of Offloading Surgical Shoe -Treatment Response Procedure Tolerated Well -Debridement - Subq, 1st 20sq cm Yes [See Physician Procedure note for Specifics] Pain Scale: 0-10 Numeric [Pain] -Is Patient Pain Free? Yes WC - Nurse 3 - General Ulcer D/C NN Start: 07/05/20 10:32 Freq: Status: Active Protocol: Activity Type Activity Date Activity User E-Sign Co-Sign Detail Recorded Client Recorded Date Recorded By Document 07/26/20 10:53 ELIO [id number] 07/26/20 10:55 ELIO 07/26/20 10:53 Wound Care Nurse 3 [Wound Dressing] 4-left 3rd toe -Ulcer Cleansing Rinsed/ Irrigated with Saline -Primary Dressing Applied Promogran Samantha Matter -Primary Dressing Covered/Secured Dry Gauze, with Secured with Tape -Promogran Samantha Matter 1 #1 L Heel -Ulcer Cleansing Rinsed/ Irrigated with Saline -Primary Dressing Covered/Secured Dry Gauze, with Secured with Tape [Compression Applied] Left -Compression Wrap Surepress ($) Pain Scale: 0-10 Numeric [Pain] -Is Patient Pain Free? Yes WC - Visit Discharge [Visit Discharge Information] -Discharge Condition Stable -Ambulatory Status Walker -Transportation Private Auto -Accompanied by #2 L Ant Ankle: Wound Measurements and Assessment WC - Nurse 1 - General Ulcer Measurement Start: 07/05/20 10:32 Freq: Status: Active Protocol: Activity Type Activity Date Activity User E-Sign Co-Sign Detail Recorded Client Recorded Date Recorded By Document 07/26/20 10:15 ELIO [id number] 07/26/20 10:24 ELIO 07/26/20 10:15 Wound Center Nurse 1 [Ulcer Assessment] 4-left 3rd toe -Current Size (cm) - Length 0.9 -Current Size (cm) - Width 0.9 -Current Size (cm) - Depth 0.1 -Total Square Cm 0.81 -Exudate Amt Small -Exudate Type Serosanguineous -Wound Margin Distinct, Outline Attached -Granulation Amt Large (67-100%) -Granulation Quality Red -Texture (Bren-wound Skin Appearance) Assessed, Scarring -Moisture (Bren-wound Skin Appearance No Abnormality, ) Assessed -Temperature (Bren-wound Skin No Abnormality Appearance) (Pt Warm) -Tenderness on Palpation (Bren-wound No Skin Appearance) -Ulcer Cleansing Rinsed/ Irrigated with Saline -Foul Odor after Cleansing No -Anesthetic Used 4% Lidocaine Solution 3-right 3rd toe -Current Size (cm) - Length 0.3 -Current Size (cm) - Width 0.2 -Current Size (cm) - Depth 0.1 -Total Square Cm 0.06 -Exudate Amt Small -Exudate Type Serosanguineous -Wound Margin Distinct, Outline Attached -Granulation Amt Large (67-100%) -Granulation Quality Red -Necrosis Amt None Present (0 %) -Texture (Bren-wound Skin Appearance) Assessed, Scarring -Moisture (Bren-wound Skin Appearance No Abnormality, ) Assessed -Color (Bren-wound Skin Appearance) No Abnormality, Assessed -Temperature (Bren-wound Skin No Abnormality Appearance) (Pt Warm) -Tenderness on Palpation (Bren-wound No Skin Appearance) -Ulcer Cleansing Rinsed/ Irrigated with Saline -Foul Odor after Cleansing No -Anesthetic Used 4% Lidocaine Solution #1 L Heel -Current Size (cm) - Length 0.8 -Current Size (cm) - Width 0.3 -Current Size (cm) - Depth 0.1 -Total Square Cm 0.24 -Exudate Amt Small -Exudate Type Serosanguineous -Wound Margin Distinct, Outline Attached -Granulation Amt Medium (34-66%) -Granulation Quality [place],Red -Necrosis Amt Medium (34-66%) -Necrotic Tissue Type Adherent Slough -Texture (Bren-wound Skin Appearance) Assessed, Scarring -Moisture (Bren-wound Skin Appearance No Abnormality, ) Assessed -Color (Bren-wound Skin Appearance) No Abnormality, Assessed -Temperature (Bren-wound Skin No Abnormality Appearance) (Pt Warm) -Tenderness on Palpation (Bren-wound No Skin Appearance) -Ulcer Cleansing Rinsed/ Irrigated with Saline -Foul Odor after Cleansing No -Anesthetic Used 4% Lidocaine Solution WC - Nurse 2 - General Ulcer CM Notes Start: 07/05/20 10:32 Freq: Status: Active Protocol: Activity Type Activity Date Activity User E-Sign Co-Sign Detail Recorded Client Recorded Date Recorded By Document 07/26/20 10:35 JAUN [id number] 07/26/20 10:41 JAUN 07/26/20 10:35 Wound Center Nurse 2 [Procedure/Treatment] 4-left 3rd toe -Time 10:40 -Correct Patient Yes -Correct Side, Site, Position Yes -Correct Procedure Yes -Procedure Performed Yes -Type of Procedure Debridement -Clinical Debridement Subcutaneous -Tissue Removed Subcutaneous -Post Debridement (cm) - Length 0.7 -Post Debridement (cm) - Width 1 -Post Debridement (cm) - Depth 0.1 -Total Square (Post) (cm) 0.7 -Area of Debridement (cm) - Length 0.7 -Area of Debridement (cm) - Width 1 -Total Square (Area) (cm) 0.7 -Tunneling No -Undermining/Tunneling No -Circular Undermining No -Wound/Ulcer Outcome Not Healed -Ulcer Cleansing Rinsed/ Irrigated with Saline -Foul Odor after Cleansing No -Bioengineered Tissue No -Bleeding Controlled with Pressure -Offloading No -Treatment Response Procedure Tolerated Well -Debridement - Subq, 1st 20sq cm No 3-right 3rd toe -Correct Patient No -Correct Side, Site, Position No -Correct Procedure No -Procedure Performed No -Post Debridement (cm) - Length 0 -Post Debridement (cm) - Width 0 -Post Debridement (cm) - Depth 0 -Total Square (Post) (cm) 0 -Area of Debridement (cm) - Length 0 -Area of Debridement (cm) - Width 0 -Total Square (Area) (cm) 0 -Wound/Ulcer Outcome Healed- Epithelialized #1 L Heel -Time 10:37 -Correct Patient Yes -Correct Side, Site, Position Yes -Correct Procedure Yes -Procedure Performed Yes -Type of Procedure Debridement -Clinical Debridement Subcutaneous -Tissue Removed Subcutaneous -Post Debridement (cm) - Length 1 -Post Debridement (cm) - Width 0.7 -Post Debridement (cm) - Depth 0.1 -Total Square (Post) (cm) 0.7 -Area of Debridement (cm) - Length 1 -Area of Debridement (cm) - Width 0.7 -Total Square (Area) (cm) 0.7 -Tunneling No -Undermining/Tunneling No -Circular Undermining No -Wound/Ulcer Outcome Not Healed -Ulcer Cleansing Rinsed/ Irrigated with Saline -Foul Odor after Cleansing No -Bioengineered Tissue No -Bleeding Controlled with Pressure -Offloading Yes -Type of Offloading Surgical Shoe -Treatment Response Procedure Tolerated Well -Debridement - Subq, 1st 20sq cm Yes [See Physician Procedure note for Specifics] Pain Scale: 0-10 Numeric [Pain] -Is Patient Pain Free? Yes WC - Nurse 3 - General Ulcer D/C NN Start: 07/05/20 10:32 Freq: Status: Active Protocol: Activity Type Activity Date Activity User E-Sign Co-Sign Detail Recorded Client Recorded Date Recorded By Document 07/26/20 10:53 ELIO [id number] 07/26/20 10:55 ELIO 07/26/20 10:53 Wound Care Nurse 3 [Wound Dressing] 4-left 3rd toe -Ulcer Cleansing Rinsed/ Irrigated with Saline -Primary Dressing Applied Promogran Samantha Matter -Primary Dressing Covered/Secured Dry Gauze, with Secured with Tape -Promogran Samantha Matter 1 #1 L Heel -Ulcer Cleansing Rinsed/ Irrigated with Saline -Primary Dressing Covered/Secured Dry Gauze, with Secured with Tape [Compression Applied] Left -Compression Wrap Surepress ($) Pain Scale: 0-10 Numeric [Pain] -Is Patient Pain Free? Yes WC - Visit Discharge [Visit Discharge Information] -Discharge Condition Stable -Ambulatory Status Walker -Transportation Private Auto -Accompanied by 3-right 3rd toe: Wound Measurements and Assessment WC - Nurse 1 - General Ulcer Measurement Start: 07/05/20 10:32 Freq: Status: Active Protocol: Activity Type Activity Date Activity User E-Sign Co-Sign Detail Recorded Client Recorded Date Recorded By Document 07/26/20 10:15 ELIO [id number] 07/26/20 10:24 ELIO 07/26/20 10:15 Wound Center Nurse 1 [Ulcer Assessment] 4-left 3rd toe -Current Size (cm) - Length 0.9 -Current Size (cm) - Width 0.9 -Current Size (cm) - Depth 0.1 -Total Square Cm 0.81 -Exudate Amt Small -Exudate Type Serosanguineous -Wound Margin Distinct, Outline Attached -Granulation Amt Large (67-100%) -Granulation Quality Red -Texture (Bren-wound Skin Appearance) Assessed, Scarring -Moisture (Bren-wound Skin Appearance No Abnormality, ) Assessed -Temperature (Bren-wound Skin No Abnormality Appearance) (Pt Warm) -Tenderness on Palpation (Bren-wound No Skin Appearance) -Ulcer Cleansing Rinsed/ Irrigated with Saline -Foul Odor after Cleansing No -Anesthetic Used 4% Lidocaine Solution 3-right 3rd toe -Current Size (cm) - Length 0.3 -Current Size (cm) - Width 0.2 -Current Size (cm) - Depth 0.1 -Total Square Cm 0.06 -Exudate Amt Small -Exudate Type Serosanguineous -Wound Margin Distinct, Outline Attached -Granulation Amt Large (67-100%) -Granulation Quality Red -Necrosis Amt None Present (0 %) -Texture (Bren-wound Skin Appearance) Assessed, Scarring -Moisture (Bren-wound Skin Appearance No Abnormality, ) Assessed -Color (Bren-wound Skin Appearance) No Abnormality, Assessed -Temperature (Bren-wound Skin No Abnormality Appearance) (Pt Warm) -Tenderness on Palpation (Bren-wound No Skin Appearance) -Ulcer Cleansing Rinsed/ Irrigated with Saline -Foul Odor after Cleansing No -Anesthetic Used 4% Lidocaine Solution #1 L Heel -Current Size (cm) - Length 0.8 -Current Size (cm) - Width 0.3 -Current Size (cm) - Depth 0.1 -Total Square Cm 0.24 -Exudate Amt Small -Exudate Type Serosanguineous -Wound Margin Distinct, Outline Attached -Granulation Amt Medium (34-66%) -Granulation Quality [place],Red -Necrosis Amt Medium (34-66%) -Necrotic Tissue Type Adherent Slough -Texture (Bren-wound Skin Appearance) Assessed, Scarring -Moisture (Bren-wound Skin Appearance No Abnormality, ) Assessed -Color (Bren-wound Skin Appearance) No Abnormality, Assessed -Temperature (Bren-wound Skin No Abnormality Appearance) (Pt Warm) -Tenderness on Palpation (Bren-wound No Skin Appearance) -Ulcer Cleansing Rinsed/ Irrigated with Saline -Foul Odor after Cleansing No -Anesthetic Used 4% Lidocaine Solution WC - Nurse 2 - General Ulcer CM Notes Start: 07/05/20 10:32 Freq: Status: Active Protocol: Activity Type Activity Date Activity User E-Sign Co-Sign Detail Recorded Client Recorded Date Recorded By Document 07/26/20 10:35 JAUN [id number] 07/26/20 10:41 JAUN 07/26/20 10:35 Wound Center Nurse 2 [Procedure/Treatment] 4-left 3rd toe -Time 10:40 -Correct Patient Yes -Correct Side, Site, Position Yes -Correct Procedure Yes -Procedure Performed Yes -Type of Procedure Debridement -Clinical Debridement Subcutaneous -Tissue Removed Subcutaneous -Post Debridement (cm) - Length 0.7 -Post Debridement (cm) - Width 1 -Post Debridement (cm) - Depth 0.1 -Total Square (Post) (cm) 0.7 -Area of Debridement (cm) - Length 0.7 -Area of Debridement (cm) - Width 1 -Total Square (Area) (cm) 0.7 -Tunneling No -Undermining/Tunneling No -Circular Undermining No -Wound/Ulcer Outcome Not Healed -Ulcer Cleansing Rinsed/ Irrigated with Saline -Foul Odor after Cleansing No -Bioengineered Tissue No -Bleeding Controlled with Pressure -Offloading No -Treatment Response Procedure Tolerated Well -Debridement - Subq, 1st 20sq cm No 3-right 3rd toe -Correct Patient No -Correct Side, Site, Position No -Correct Procedure No -Procedure Performed No -Post Debridement (cm) - Length 0 -Post Debridement (cm) - Width 0 -Post Debridement (cm) - Depth 0 -Total Square (Post) (cm) 0 -Area of Debridement (cm) - Length 0 -Area of Debridement (cm) - Width 0 -Total Square (Area) (cm) 0 -Wound/Ulcer Outcome Healed- Epithelialized #1 L Heel -Time 10:37 -Correct Patient Yes -Correct Side, Site, Position Yes -Correct Procedure Yes -Procedure Performed Yes -Type of Procedure Debridement -Clinical Debridement Subcutaneous -Tissue Removed Subcutaneous -Post Debridement (cm) - Length 1 -Post Debridement (cm) - Width 0.7 -Post Debridement (cm) - Depth 0.1 -Total Square (Post) (cm) 0.7 -Area of Debridement (cm) - Length 1 -Area of Debridement (cm) - Width 0.7 -Total Square (Area) (cm) 0.7 -Tunneling No -Undermining/Tunneling No -Circular Undermining No -Wound/Ulcer Outcome Not Healed -Ulcer Cleansing Rinsed/ Irrigated with Saline -Foul Odor after Cleansing No -Bioengineered Tissue No -Bleeding Controlled with Pressure -Offloading Yes -Type of Offloading Surgical Shoe -Treatment Response Procedure Tolerated Well -Debridement - Subq, 1st 20sq cm Yes [See Physician Procedure note for Specifics] Pain Scale: 0-10 Numeric [Pain] -Is Patient Pain Free? Yes WC - Nurse 3 - General Ulcer D/C NN Start: 07/05/20 10:32 Freq: Status: Active Protocol: Activity Type Activity Date Activity User E-Sign Co-Sign Detail Recorded Client Recorded Date Recorded By Document 07/26/20 10:53 ELIO [id number] 07/26/20 10:55 KR 07/26/20 10:53 Wound Care Nurse 3 [Wound Dressing] 4-left 3rd toe -Ulcer Cleansing Rinsed/ Irrigated with Saline -Primary Dressing Applied Promogran Samantha Matter -Primary Dressing Covered/Secured Dry Gauze, with Secured with Tape -Promogran Samantha Matter 1 #1 L Heel -Ulcer Cleansing Rinsed/ Irrigated with Saline -Primary Dressing Covered/Secured Dry Gauze, with Secured with Tape [Compression Applied] Left -Compression Wrap Surepress ($) Pain Scale: 0-10 Numeric [Pain] -Is Patient Pain Free? Yes WC - Visit Discharge [Visit Discharge Information] -Discharge Condition Stable -Ambulatory Status Walker -Transportation Private Auto -Accompanied by 4-left 3rd toe: Wound Measurements and Assessment - Nurse 1 - General Ulcer Measurement Start: 07/05/20 10:32 Freq: Status: Active Protocol: Activity Type Activity Date Activity User E-Sign Co-Sign Detail Recorded Client Recorded Date Recorded By Document 07/26/20 10:15 ELIO [id number] 07/26/20 10:24 ELIO 07/26/20 10:15 Wound Center Nurse 1 [Ulcer Assessment] 4-left 3rd toe -Current Size (cm) - Length 0.9 -Current Size (cm) - Width 0.9 -Current Size (cm) - Depth 0.1 -Total Square Cm 0.81 -Exudate Amt Small -Exudate Type Serosanguineous -Wound Margin Distinct, Outline Attached -Granulation Amt Large (67-100%) -Granulation Quality Red -Texture (Bren-wound Skin Appearance) Assessed, Scarring -Moisture (Bren-wound Skin Appearance No Abnormality, ) Assessed -Temperature (Bren-wound Skin No Abnormality Appearance) (Pt Warm) -Tenderness on Palpation (Bren-wound No Skin Appearance) -Ulcer Cleansing Rinsed/ Irrigated with Saline -Foul Odor after Cleansing No -Anesthetic Used 4% Lidocaine Solution 3-right 3rd toe -Current Size (cm) - Length 0.3 -Current Size (cm) - Width 0.2 -Current Size (cm) - Depth 0.1 -Total Square Cm 0.06 -Exudate Amt Small -Exudate Type Serosanguineous -Wound Margin Distinct, Outline Attached -Granulation Amt Large (67-100%) -Granulation Quality Red -Necrosis Amt None Present (0 %) -Texture (Bren-wound Skin Appearance) Assessed, Scarring -Moisture (Bren-wound Skin Appearance No Abnormality, ) Assessed -Color (Bren-wound Skin Appearance) No Abnormality, Assessed -Temperature (Bren-wound Skin No Abnormality Appearance) (Pt Warm) -Tenderness on Palpation (Bren-wound No Skin Appearance) -Ulcer Cleansing Rinsed/ Irrigated with Saline -Foul Odor after Cleansing No -Anesthetic Used 4% Lidocaine Solution #1 L Heel -Current Size (cm) - Length 0.8 -Current Size (cm) - Width 0.3 -Current Size (cm) - Depth 0.1 -Total Square Cm 0.24 -Exudate Amt Small -Exudate Type Serosanguineous -Wound Margin Distinct, Outline Attached -Granulation Amt Medium (34-66%) -Granulation Quality [place],Red -Necrosis Amt Medium (34-66%) -Necrotic Tissue Type Adherent Slough -Texture (Bren-wound Skin Appearance) Assessed, Scarring -Moisture (Bren-wound Skin Appearance No Abnormality, ) Assessed -Color (Bren-wound Skin Appearance) No Abnormality, Assessed -Temperature (Bren-wound Skin No Abnormality Appearance) (Pt Warm) -Tenderness on Palpation (Bren-wound No Skin Appearance) -Ulcer Cleansing Rinsed/ Irrigated with Saline -Foul Odor after Cleansing No -Anesthetic Used 4% Lidocaine Solution WC - Nurse 2 - General Ulcer CM Notes Start: 07/05/20 10:32 Freq: Status: Active Protocol: Activity Type Activity Date Activity User E-Sign Co-Sign Detail Recorded Client Recorded Date Recorded By Document 07/26/20 10:35 JAUN [id number] 07/26/20 10:41 JAUN 07/26/20 10:35 Wound Center Nurse 2 [Procedure/Treatment] 4-left 3rd toe -Time 10:40 -Correct Patient Yes -Correct Side, Site, Position Yes -Correct Procedure Yes -Procedure Performed Yes -Type of Procedure Debridement -Clinical Debridement Subcutaneous -Tissue Removed Subcutaneous -Post Debridement (cm) - Length 0.7 -Post Debridement (cm) - Width 1 -Post Debridement (cm) - Depth 0.1 -Total Square (Post) (cm) 0.7 -Area of Debridement (cm) - Length 0.7 -Area of Debridement (cm) - Width 1 -Total Square (Area) (cm) 0.7 -Tunneling No -Undermining/Tunneling No -Circular Undermining No -Wound/Ulcer Outcome Not Healed -Ulcer Cleansing Rinsed/ Irrigated with Saline -Foul Odor after Cleansing No -Bioengineered Tissue No -Bleeding Controlled with Pressure -Offloading No -Treatment Response Procedure Tolerated Well -Debridement - Subq, 1st 20sq cm No 3-right 3rd toe -Correct Patient No -Correct Side, Site, Position No -Correct Procedure No -Procedure Performed No -Post Debridement (cm) - Length 0 -Post Debridement (cm) - Width 0 -Post Debridement (cm) - Depth 0 -Total Square (Post) (cm) 0 -Area of Debridement (cm) - Length 0 -Area of Debridement (cm) - Width 0 -Total Square (Area) (cm) 0 -Wound/Ulcer Outcome Healed- Epithelialized #1 L Heel -Time 10:37 -Correct Patient Yes -Correct Side, Site, Position Yes -Correct Procedure Yes -Procedure Performed Yes -Type of Procedure Debridement -Clinical Debridement Subcutaneous -Tissue Removed Subcutaneous -Post Debridement (cm) - Length 1 -Post Debridement (cm) - Width 0.7 -Post Debridement (cm) - Depth 0.1 -Total Square (Post) (cm) 0.7 -Area of Debridement (cm) - Length 1 -Area of Debridement (cm) - Width 0.7 -Total Square (Area) (cm) 0.7 -Tunneling No -Undermining/Tunneling No -Circular Undermining No -Wound/Ulcer Outcome Not Healed -Ulcer Cleansing Rinsed/ Irrigated with Saline -Foul Odor after Cleansing No -Bioengineered Tissue No -Bleeding Controlled with Pressure -Offloading Yes -Type of Offloading Surgical Shoe -Treatment Response Procedure Tolerated Well -Debridement - Subq, 1st 20sq cm Yes [See Physician Procedure note for Specifics] Pain Scale: 0-10 Numeric [Pain] -Is Patient Pain Free? Yes - Nurse 3 - General Ulcer D/C NN Start: 07/05/20 10:32 Freq: Status: Active Protocol: Activity Type Activity Date Activity User E-Sign Co-Sign Detail Recorded Client Recorded Date Recorded By Document 07/26/20 10:53 ELIO [id number] 07/26/20 10:55 ELIO 07/26/20 10:53 Wound Care Nurse 3 [Wound Dressing] 4-left 3rd toe -Ulcer Cleansing Rinsed/ Irrigated with Saline -Primary Dressing Applied Promogran Samantha Matter -Primary Dressing Covered/Secured Dry Gauze, with Secured with Tape -Promogran Samantha Matter 1 #1 L Heel -Ulcer Cleansing Rinsed/ Irrigated with Saline -Primary Dressing Covered/Secured Dry Gauze, with Secured with Tape [Compression Applied] Left -Compression Wrap Surepress ($) Pain Scale: 0-10 Numeric [Pain] -Is Patient Pain Free? Yes - Visit Discharge [Visit Discharge Information] -Discharge Condition Stable -Ambulatory Status Walker -Transportation Private Auto -Accompanied by
== END 2020-07-29 23:59 ==
LOC: WC 10:15
PROVIDERS: PCP Family Medicine; Referring Provider Podiatrist; Visit Provider Podiatrist Foot & Ankle Surgery
DX: L89.624 Pressure ulcer of left heel, stage 4 (principal); E11.621 Type 2 diabetes mellitus with foot ulcer; L97.522 Non-pressure chronic ulcer of other part of left foot with fat layer exposed; L97.329 Non-pressure chronic ulcer of left ankle with unspecified severity; L97.512 Non-pressure chronic ulcer of other part of right foot with fat layer exposed; E11.42 Type 2 diabetes mellitus with diabetic polyneuropathy; M86.9 Osteomyelitis, unspecified; E11.65 Type 2 diabetes mellitus with hyperglycemia; Z79.4 Long term (current) use of insulin; Z87.820 Personal history of traumatic brain injury
CPT/HCPCS: 11042; 15275; Q4186

== ENCOUNTER 2020-08-23 10:45 | Outpatient (RCR) | payer MEDICAID, SELFPAY ==
[2020-07-30 00:39] VITALS: BP 112/61; PULSE 71; RESP 18; TEMP 35.9
[2020-08-02 10:42] VITALS: BP 140/80; PULSE 91; RESP 20; TEMP 36.6; BMI 23.3
--- NOTE | 2020-08-02 12:05 | PCM.WC.PN ---
History of Present Illness Date of Service: 08/02/20 Chief Complaint: left heel ulcer left ankle ulcer- healed History of Wound: In October 2019, patient had rubbing in shoes while shopping which led to a blister that developed into an ulceration. Patient was then seen in my office for wound care. Patient then became infected and was admitted to the hospital. Patient was noted to have OM on MRI. Patient wanted to avoid surgery so a rat exterminator course of appropriate IV antibiotics was the treatment chosen. Patient was also noted to have hyperglycemia and has worked with hospitalist and PCP to try to get better control. Blood sugar levels remain elevated. Patient also had LEAS obtained in the hospital which suggested patient had the proper blood flow to allow healing. Patient has since finished rat exterminator course of antibiotics. Patient has since been seen on a weekly basis in office with progression and regression of wound noted over the weeks. Patient has tried various dressing options including wet to dry and santyl. The most progress was noted with Santyl but patient ran out and was unable to refill due to insurance issues. During which time the wound regressed. She also has an offloading surgical shoe and offloading boot to relieve pressure. Patient care is henceforth being carried out at the wound care center. Patient not currently on any antibiotics. Patient has since began skin graft aplications significant improvement is been noted to her foot overall. Patient has finished epifix graft applications with some very small remaining wound noted to left heel. Patient has new wounds noted to bilateral third digits. The right 3rd digit wound has healed. Her left ankle ulcer remains healed Progress of Wound: Improvement noted with healing of left fourth digit ulcer Subjective Subjective: Patient seen and examined resting comfortably. Patient denies any new pedal complaints. Patient denies any nausea, fever, chills, chest pain, shortness of breath, cough, streaking, purulence, vomiting. Objective Data Objective Data Vital Signs: Vital Signs Temp Pulse Resp BP 97.8 F 91 20 H 140/80 H 08/02/20 10:42 08/02/20 10:42 08/02/20 10:42 08/02/20 10:42 Weight: 140 lb 10.354 oz Body Mass Index (BMI) 23.3 Finger Stick Blood Glucose 412 Assessment & Plan Assessment/Plan (1) Pressure ulcer of left heel, stage 2: Status: Acute Code(s): L89.622 - Pressure ulcer of left heel, stage 2 (2) Type II diabetes mellitus: Status: Chronic Code(s): E11.9 - Type 2 diabetes mellitus without complications Qualifiers: Diabetes mellitus complication detail: with polyneuropathy Diabetes mellitus complication status: with neurologic complications Diabetes mellitus rat exterminator insulin use: unspecified intermediate insulin use status Qualified Code(s): E11.42 - Type 2 diabetes mellitus with diabetic polyneuropathy (3) Pain in left foot: Status: Acute Code(s): M79.672 - Pain in left foot Plan: Patient seen and examined with boyfriend present. Wounds noted to have improved largely. Wound to right and left toes have healed. Maceration resolved with small skin tear noted to heel wound. She relates that the anterior ankle is doing much better less dry skin less redness since changing outer dressing. Patient has history of osteomyelitis with ulcer probing to bone with hospital stay and course of IV antiboitics. Patient wished to avoid surgical resection. Patient has since finished course of antibiotics. heel wound to left foot and bilateral third digits were sharply debrided without incident after verbal consent was obtained. Patient encouraged to lotion anterior ankle left area skin is very dry as well as to pad area well to prevent future breakdown with dressing changes as area is dry and red from irritation much improved since switching to Mepilex border dressing for heel wound. Patient to continue offloading heel. Patient has offloaded heel surgical shoe and prevalon boot for offloading. Patient had recent LEAS showing a left RONIT of 1.2 and TBI of 0.74 with triphasic waveforms. Discussed importance of offloading, blood sugar control, diet, and proper wound care to optimize healing potential. Discussed seeing a superintendent production for education on proper nutrition. Patient relates she saw one last year. Continue daily wound care. Patient is to start Samantha dressing changes as she has finished her epi fix graft applications. Patient to begin building her strength back up and with ambulation. Discussed how to do this properly. Discussed using her roller aid until she regains some of her strength. Discussed going to the office for diabetic shoes. Educated patient on signs and symptoms of infection to watch out for and to contact office or go to ED if seen. Patient to follow up in 1 week. This note was generated with [employer] dictation software. It may contain incorrect words, spelling, and punctuation that were not noted in checking the note before signing. The problems addressed require a low medical decision making level which includes two or more minor problems, a stable chronic illness, or an acute uncomplicated illness or injury. Physical Exam Const alert and no apparent distress General Appearance: cooperative and comfortable HEENT Head and Scalp: atraumatic Lymph Lymphatic: no lymphedema noted Resp normal respiratory effort Effort and Inspection: able to speak in complete sentences Extremity normal capillary refill and no calf tenderness General Extremity: edema bilateral lower extremity and no tenderness to palpation of joints or extremities; Negative for clubbing or cyanosis Peripheral Pulses: Yes posterior tibial pulses present bilateral diminished and dorsalis pedis pulses present bilateral diminished Skin General Skin Exam: dry skin; Negative for ecchymosis, erythema, eschar, pallor or dermatitis Wounds: wounds noted Wound Narrative: Left posterior heel. No malodor, erythema, purulence, probing to bone, streaking, fluctuation, crepitus, or other signs of infection. Skin is atrophic and hairless. Granular base. Maceration has resolved. Anterior left ankle continues to have chronic red changes from irritation some dry skin without wound or other signs of infection. Neuro Gait (Neuro): assistive device used Sensory Exam: extremities light-touch: decreased Motor Exam: strength 5/5 throughout and general weakness Psych Appearance: appropriate Attitude: calm Debridement Note Debridement Note Post-Debridement Measurements and Additional Note: Post-Debridement Measurements/Treatment WC - Nurse 2 - General Ulcer CM Notes Start: 08/02/20 10:39 Freq: Status: Active Protocol: Activity Type Activity Date Activity User E-Sign Co-Sign Detail Recorded Client Recorded Date Recorded By Document 08/02/20 11:03 JAUN [id number] 08/02/20 11:11 JAUN 08/02/20 11:03 Wound Center Nurse 2 4-left 3rd toe -Correct Patient No -Correct Side, Site, Position No -Correct Procedure No -Procedure Performed No -Post Debridement (cm) - Length 0 -Post Debridement (cm) - Width 0 -Post Debridement (cm) - Depth 0 -Total Square (Post) (cm) 0 -Area of Debridement (cm) - Length 0 -Area of Debridement (cm) - Width 0 -Total Square (Area) (cm) 0 -Wound/Ulcer Outcome Healed- Epithelialized #1 L Heel -Time 11:07 -Correct Patient Yes -Correct Side, Site, Position Yes -Correct Procedure Yes -Procedure Performed Yes -Type of Procedure Debridement -Clinical Debridement Subcutaneous -Tissue Removed Subcutaneous -Post Debridement (cm) - Length 0.5 -Post Debridement (cm) - Width 0.5 -Post Debridement (cm) - Depth 0.1 -Total Square (Post) (cm) 0.25 -Area of Debridement (cm) - Length 0.5 -Area of Debridement (cm) - Width 0.5 -Total Square (Area) (cm) 0.25 -Tunneling No -Undermining/Tunneling No -Circular Undermining No -Wound/Ulcer Outcome Not Healed -Ulcer Cleansing Rinsed/ Irrigated with Saline -Foul Odor after Cleansing No -Bioengineered Tissue No -Bleeding Controlled with Pressure -Offloading No -Treatment Response Procedure Tolerated Well -Debridement - Subq, 1st 20sq cm Yes Pain Scale: 0-10 Numeric Is Patient Pain Free? Yes - Nurse 3 - General Ulcer D/C NN Start: 08/02/20 10:39 Freq: Status: Active Protocol: Activity Type Activity Date Activity User E-Sign Co-Sign Detail Recorded Client Recorded Date Recorded By Document 08/02/20 11:11 JAUN [id number] 08/02/20 11:11 Edit Result 08/02/20 11:11 JF (1) [id number] 08/02/20 11:38 JF (1) #1 L Heel - Primary Dressing Applied C Hydrogel ($) => Promogran Samantha => Matter - Promogran Samantha Matter => 1 08/02/20 11:11 Wound Care Nurse 3 #1 L Heel -Ulcer Cleansing Rinsed/ Irrigated with Saline -Foul Odor after Cleansing No -Primary Dressing Applied Promogran Samantha Matter -Primary Dressing Covered/Secured with Dry Gauze, Secured with Tape -Promogran Samantha Matter 1 Pain Scale: 0-10 Numeric Is Patient Pain Free? Yes WC - Visit Discharge Discharge Condition Stable Ambulatory Status Wheelchair Transportation Private Auto Medication Reconcilliation completed & Yes provided to patient/care provider Clinical Summary of Care Provided Yes Wound debrided: Left heel Laterality: Left Wound Grade/Stage: Glasgow 3 Type of Debridement: Excisional debridement Anesthesia Used: 4% Lidocaine Solution Depth: in the subcutaneous layer Percentage of wound debrided: 100 Instrument Used: 3mm curette Tissue Removed: includes fibrous, devitalized, biofilm, callus and slough tissue Severity: Fat Layer Exposed Amount of bleeding with debridement: Mild Bleeding Controlled with: Pressure Patient tolerated procedure: Patient tolerated procedure well
[2020-08-09 11:24] VITALS: BP 125/75; PULSE 73; RESP 18; TEMP 36.5; BMI 23.3
--- NOTE | 2020-08-09 11:59 | PN.PCM_ITS ---
History of Present Illness Date of Service: 08/09/20 Chief Complaint: left heel ulcer left ankle ulcer- healed History of Wound: In October 2019, patient had rubbing in shoes while shopping which led to a blister that developed into an ulceration. Patient was then seen in my office for wound care. Patient then became infected and was admitted to the hospital. Patient was noted to have OM on MRI. Patient wanted to avoid surgery so a residential course of appropriate IV antibiotics was the treatment chosen. Patient was also noted to have hyperglycemia and has worked with hospitalist and PCP to try to get better control. Blood sugar levels remain elevated. Patient also had LEAS obtained in the hospital which suggested patient had the proper blood flow to allow healing. Patient has since finished residential course of antibiotics. Patient has since been seen on a weekly basis in office with progression and regression of wound noted over the weeks. Patient has tried various dressing options including wet to dry and santyl. The most progress was noted with Santyl but patient ran out and was unable to refill due to insurance issues. During which time the wound regressed. She also has an offloading surgical shoe and offloading boot to relieve pressure. Patient care is henceforth being carried out at the wound care center. Patient not currently on any antibiotics. Patient has since began skin graft aplications significant improvement is been noted to her foot overall. Patient has finished epifix graft applications with some very small remaining wound noted to left heel. Patient has new wounds noted to bilateral third digits. The right 3rd digit wound has healed. Her left ankle ulcer remains healed Progress of Wound: Improvement noted to heel ulcer Subjective Subjective: Patient seen and examined resting comfortably. Patient denies any new pedal complaints. Patient denies any nausea, fever, chills, chest pain, shortness of breath, cough, streaking, purulence, vomiting. Patient relates that she has begun ambulating and has no noted issues with it. She is still using her roller aid to provide support as she builds up her strength Objective Data Objective Data Vital Signs: Vital Signs Temp Pulse Resp BP 97.7 F L 73 18 125/75 H 08/09/20 11:24 08/09/20 11:24 08/09/20 11:24 08/09/20 11:24 Weight: 63.796 kg Body Mass Index (BMI) 23.3 Finger Stick Blood Glucose 412 Assessment & Plan Assessment/Plan (1) Pressure ulcer of left heel, stage 2: (2) Type II diabetes mellitus: QUALIFIERS: Diabetes mellitus complication detail: with polyneuropathy Diabetes mellitus complication status: with neurologic complications Diabetes mellitus manager intermediate insulin use: unspecified residential insulin use status Qualified Code(s): E11.42 - Type 2 diabetes mellitus with diabetic polyneuropathy (3) Pain in left foot: PLAN: Patient seen and examined with boyfriend present. Wounds noted to have improved largely. Patient relates that she has been ambulating with a walker without incident over the last week. Wounds have not worsened given her new ambulatory status. Patient has history of osteomyelitis with ulcer probing to bone with hospital stay and course of IV antiboitics. Patient wished to avoid surgical resection. Patient has since finished course of antibiotics. heel wound to left heel was sharply debrided without incident after verbal consent was obtained. Patient encouraged to lotion anterior ankle left area skin is very dry as well as to pad area well to prevent future breakdown with dressing changes as area is dry and red from irritation much improved since switching to Mepilex border dressing for heel wound. Patient to continue offloading heel. Patient has offloaded heel surgical shoe and prevalon boot for offloading. Patient had recent LEAS showing a left RONIT of 1.2 and TBI of 0.74 with triphasic waveforms. Discussed importance of offloading, blood sugar control, diet, and proper wound care to optimize healing potential. Discussed seeing a coin machine assembler for education on proper nutrition. Patient relates she saw one last year. Continue daily wound care. Patient is to start Samantha dressing changes as she has finished her epi fix graft applications. Patient to begin building her strength back up and with ambulation. Discussed how to do this properly. Discussed using her roller aid until she regains some of her strength. Discussed going to the office for diabetic shoes. Educated patient on signs and symptoms of infection to watch out for and to contact office or go to ED if seen. Patient to follow up in 1 week. This note was generated with [employer] dictation software. It may contain incorrect words, spelling, and punctuation that were not noted in checking the note before signing. The problems addressed require a low medical decision making level which includes two or more minor problems, a stable chronic illness, or an acute uncomplicated illness or injury. Physical Exam Const alert and no apparent distress General Appearance: cooperative and comfortable Lymph Lymphatic: no lymphedema noted Resp normal respiratory effort Effort and Inspection: able to speak in complete sentences Extremity normal capillary refill and no calf tenderness General Extremity: edema bilateral lower extremity and no tenderness to palpation of joints or extremities; Negative for clubbing or cyanosis Peripheral Pulses: Yes posterior tibial pulses present bilateral 2+ and dorsalis pedis pulses present bilateral diminished Skin General Skin Exam: dry skin; Negative for ecchymosis, erythema, eschar, pallor or dermatitis Wounds: wounds noted Wound Narrative: Left posterior heel. No malodor, erythema, purulence, probing to bone, streaking, fluctuation, crepitus, or other signs of infection. Skin is atrophic and hairless. Granular base. Maceration has resolved. Anterior left ankle continues to have chronic red changes from irritation some dry skin without wound or other signs of infection. This is improved Neuro Gait (Neuro): assistive device used walker Sensory Exam: extremities light-touch: decreased Motor Exam: strength 5/5 throughout and general weakness Psych Appearance: appropriate Attitude: calm Debridement Note Debridement Note Post-Debridement Measurements and Additional Note: Post-Debridement Measurements/Treatment - Nurse 1 - General Ulcer Assessment Start: 08/02/20 10:39 Freq: Status: Active Protocol: WC.LOWJESSICAT Activity Type Activity Date Activity User E-Sign Co-Sign Detail Recorded Client Recorded Date Recorded By Document 08/02/20 10:42 DL [id number] 08/02/20 10:51 DL Document 08/09/20 11:24 DL [id number] 08/09/20 11:26 DL 08/02/20 08/09/20 10:42 11:24 - Today's Visit Information Type of service Follow-up Visit Follow-up Visit (Physician/MERCHANT BANKER (Physician/MERCHANT BANKER ) ) Arrival Mode Walker Ambulatory, Walker Transfer Assistance None None Patient Identification Verified (Name & Yes ) Patient Requires Transmission-Based No No Precautions Height and Weight Body Mass Index (BMI) 23.3 23.3 BMI Classification Normal Normal Vital Signs Temperature (97.8 F-99.1 F) 97.8 F 97.7 F L Temperature Source Temporal Temporal Pulse Rate (60-100) 91 73 Pulse Location Monitor Monitor Respiratory Rate (12-18) 20 H 18 Respiratory rate source Observation Observation Blood Pressure (90/60-120/80) 140/80 H 125/75 H Blood Pressure Mean (mm Hg) 100 91 Source Monitor Monitor History Since Last Visit- (Skip if this is Patient's initial visit) Have you changed medications since your No last visit? Any new allergies or adverse reactions No No Had a fall/change in ADL's that may No No increase risk of falls Signs or symptoms of abuse and/or No neglect since last visit Have you been in the hospital since your No No last visit? Has dressing in place as prescribed Yes Yes Has compression in place as prescribed Yes Yes Has offloadiing in place as prescribed Yes Yes Experienced any changes in pain level or No No management Left Footwear No Footwear Surgical Shoe with pressure relief insole Right Footwear Slipper Pain Scale: 0-10 Numeric Is Patient Pain Free? Yes Yes WC - Nurse 1 - General Ulcer Measurement Start: 08/02/20 10:39 Freq: Status: Active Protocol: Activity Type Activity Date Activity User E-Sign Co-Sign Detail Recorded Client Recorded Date Recorded By Document 08/02/20 10:42 DL [id number] 08/02/20 10:51 DL Document 08/09/20 11:24 DL [id number] 08/09/20 11:26 DL 08/02/20 08/09/20 10:42 11:24 Wound Center Nurse 1 4-left 3rd toe -Current Size (cm) - Length 0.1 -Current Size (cm) - Width 0.1 -Current Size (cm) - Depth 0.1 -Total Square Cm 0.01 -Photo Taken No -Exudate Amt None Present -Wound Margin Thickened -Granulation Amt Large (67-100%) -Granulation Quality Pale -Necrosis Amt None Present (0 %) -Structure Exposed N/A -Texture (Bren-wound Skin Appearance) Scarring -Moisture (Bren-wound Skin Appearance) Dry/Scaly -Color (Bren-wound Skin Appearance) No Abnormality -Tenderness on Palpation (Bren-wound No Skin Appearance) -Ulcer Cleansing Rinsed/ Irrigated with Saline -Foul Odor after Cleansing No -Anesthetic Used 4% Lidocaine Solution #1 L Heel -Current Size (cm) - Length 0.1 0.1 -Current Size (cm) - Width 0.1 0.1 -Current Size (cm) - Depth 0.1 0.1 -Total Square Cm 0.01 0.01 -Photo Taken No No -Exudate Amt None Present None Present -Wound Margin Thickened -Granulation Amt Small (1-33%) None Present (0 %) -Granulation Quality [place] -Necrosis Amt None Present (0 Small (1-33%) %) -Necrotic Tissue Type Adherent Slough -Structure Exposed N/A N/A -Texture (Bren-wound Skin Appearance) Scarring Scarring -Moisture (Bren-wound Skin Appearance) No Abnormality Dry/Scaly -Color (Bren-wound Skin Appearance) No Abnormality No Abnormality -Temperature (Bren-wound Skin No Abnormality Appearance) (Pt Warm) -Ulcer Cleansing Rinsed/ Wound Cleanser Irrigated with Saline -Foul Odor after Cleansing No No -Anesthetic Used 4% Lidocaine 4% Lidocaine Solution Solution WC - Nurse 2 - General Ulcer CM Notes Start: 08/02/20 10:39 Freq: Status: Active Protocol: Activity Type Activity Date Activity User E-Sign Co-Sign Detail Recorded Client Recorded Date Recorded By Document 08/02/20 11:03 JF [id number] 08/02/20 11:11 JF Document 08/09/20 11:44 [id number] 08/09/20 11:49 08/02/20 08/09/20 11:03 11:44 Wound Center Nurse 2 4-left 3rd toe -Correct Patient No -Correct Side, Site, Position No -Correct Procedure No -Procedure Performed No -Post Debridement (cm) - Length 0 -Post Debridement (cm) - Width 0 -Post Debridement (cm) - Depth 0 -Total Square (Post) (cm) 0 -Area of Debridement (cm) - Length 0 -Area of Debridement (cm) - Width 0 -Total Square (Area) (cm) 0 -Wound/Ulcer Outcome Healed- Epithelialized #1 L Heel -Time 11:07 11:45 -Correct Patient Yes Yes -Correct Side, Site, Position Yes Yes -Correct Procedure Yes Yes -Procedure Performed Yes Yes -Type of Procedure Debridement Debridement -Clinical Debridement Subcutaneous Subcutaneous -Tissue Removed Subcutaneous Subcutaneous -Post Debridement (cm) - Length 0.5 0.4 -Post Debridement (cm) - Width 0.5 0.2 -Post Debridement (cm) - Depth 0.1 0.1 -Total Square (Post) (cm) 0.25 0.08 -Area of Debridement (cm) - Length 0.5 0.4 -Area of Debridement (cm) - Width 0.5 0.2 -Total Square (Area) (cm) 0.25 0.08 -Tunneling No No -Undermining/Tunneling No No -Circular Undermining No No -Wound/Ulcer Outcome Not Healed Not Healed -Ulcer Cleansing Rinsed/ Rinsed/ Irrigated with Irrigated with Saline Saline -Foul Odor after Cleansing No No -Bioengineered Tissue No No -Bleeding Controlled with Pressure Pressure -Offloading No No -Treatment Response Procedure Procedure Tolerated Well Tolerated Well -Debridement - Subq, 1st 20sq cm Yes Yes Pain Scale: 0-10 Numeric Is Patient Pain Free? Yes Yes - Nurse 3 - General Ulcer D/C NN Start: 08/02/20 10:39 Freq: Status: Active Protocol: Activity Type Activity Date Activity User E-Sign Co-Sign Detail Recorded Client Recorded Date Recorded By Document 08/02/20 11:11 [id number] 08/02/20 11:11 Edit Result 08/02/20 11:11 (1) [id number] 08/02/20 11:38 Document 08/09/20 11:49 [id number] 08/09/20 11:49 (1) #1 L Heel - Primary Dressing Applied C Hydrogel ($) => Promogran Samantha => Matter - Promogran Samantha Matter => 1 08/02/20 08/09/20 11:11 11:49 Wound Care Nurse 3 #1 L Heel -Ulcer Cleansing Rinsed/ Rinsed/ Irrigated with Irrigated with Saline Saline -Foul Odor after Cleansing No No -Primary Dressing Applied Promogran C Hydrogel ($) Samantha Matter -Primary Dressing Covered/Secured with Dry Gauze, Dry Gauze, Secured with Secured with Tape Tape -Promogran Samantha Matter 1 Pain Scale: 0-10 Numeric Is Patient Pain Free? Yes Yes - Visit Discharge Discharge Condition Stable Stable Ambulatory Status Wheelchair Wheelchair Transportation Private Auto Private Auto Medication Reconcilliation completed & Yes Yes provided to patient/care provider Clinical Summary of Care Provided Yes Yes Wound debrided: Plantar heel Laterality: Left Wound Grade/Stage: [place] 3 Type of Debridement: Excisional debridement Anesthesia Used: 4% Lidocaine Solution Depth: in the subcutaneous layer Percentage of wound debrided: 100 Instrument Used: 3mm curette Tissue Removed: includes fibrous, devitalized, biofilm, callus and slough tissue Severity: Fat Layer Exposed Amount of bleeding with debridement: Mild Bleeding Controlled with: Pressure Patient tolerated procedure: Patient tolerated procedure well
[2020-08-16 10:34] VITALS: BP 109/64; PULSE 67; RESP 16; TEMP 36.1; BMI 23.3
--- NOTE | 2020-08-16 12:51 | PCM.WC.PN ---
History of Present Illness Date of Service: 08/16/20 Chief Complaint: left heel ulcer left ankle ulcer- healed History of Wound: In October 2019, patient had rubbing in shoes while shopping which led to a blister that developed into an ulceration. Patient was then seen in my office for wound care. Patient then became infected and was admitted to the hospital. Patient was noted to have OM on MRI. Patient wanted to avoid surgery so a fdc course of appropriate IV antibiotics was the treatment chosen. Patient was also noted to have hyperglycemia and has worked with hospitalist and PCP to try to get better control. Blood sugar levels remain elevated. Patient also had LEAS obtained in the hospital which suggested patient had the proper blood flow to allow healing. Patient has since finished fdc course of antibiotics. Patient has since been seen on a weekly basis in office with progression and regression of wound noted over the weeks. Patient has tried various dressing options including wet to dry and santyl. The most progress was noted with Santyl but patient ran out and was unable to refill due to insurance issues. During which time the wound regressed. She also has an offloading surgical shoe and offloading boot to relieve pressure. Patient care is henceforth being carried out at the wound care center. Patient not currently on any antibiotics. Patient has since began skin graft aplications significant improvement is been noted to her foot overall. Patient has finished epifix graft applications with some very small remaining wound noted to left heel. Patient has new wounds noted to bilateral third digits. The right 3rd digit wound has healed. Her left ankle ulcer remains healed Patient relates that ambulation is getting easier and she is rebuilding her strength slowly. She has not had any worsening of minor remaining heel wound since beginning ambulation again. Progress of Wound: Improvement noted to heel ulcer Subjective Subjective Patient seen and examined resting comfortably. Patient denies any new pedal complaints. Patient denies any nausea, fever, chills, chest pain, shortness of breath, cough, streaking, purulence, vomiting. Objective Data Objective Data Vital Signs: Vital Signs Temp Pulse Resp BP 96.9 F L 67 16 109/64 08/16/20 10:34 08/16/20 10:34 08/16/20 10:34 08/16/20 10:34 Oxygen Delivery Method Room Air Weight: 63.796 kg Body Mass Index (BMI) 23.3 Physical Exam Const alert and no apparent distress General Appearance: cooperative and comfortable Lymph Lymphatic: no lymphedema noted Resp normal respiratory effort Effort and Inspection: able to speak in complete sentences Extremity normal capillary refill and no calf tenderness General Extremity: edema bilateral lower extremity and no tenderness to palpation of joints or extremities; Negative for clubbing or cyanosis Peripheral Pulses: Yes posterior tibial pulses present left 1+ and dorsalis pedis pulses present left 2+ Skin General Skin Exam: dry skin; Negative for ecchymosis, erythema, eschar, pallor or dermatitis Wounds: wounds noted Wound Narrative: Left posterior heel. No malodor, erythema, purulence, probing to bone, streaking, fluctuation, crepitus, or other signs of infection. Skin is atrophic and hairless. Granular base. Maceration has resolved. Anterior left ankle continues to have chronic red changes from irritation some dry skin without wound or other signs of infection. This is improved Neuro Gait (Neuro): assistive device used walker Sensory Exam: extremities light-touch: decreased Motor Exam: strength 5/5 throughout and general weakness Psych Psych Narrative: lkjlk Appearance: appropriate Attitude: calm Debridement Note Debridement Note Post-Debridement Measurements and Additional Note: Post-Debridement Measurements/Treatment - Nurse 1 - General Ulcer Assessment Start: 08/02/20 10:39 Freq: Status: Active Protocol: MOOK Activity Type Activity Date Activity User E-Sign Co-Sign Detail Recorded Client Recorded Date Recorded By Document 08/02/20 10:42 DL [id number] 08/02/20 10:51 DL Document 08/09/20 11:24 DL [id number] 08/09/20 11:26 DL Document 08/16/20 10:34 [facility] [id number] 08/16/20 10:45 [facility] 08/02/20 08/09/20 08/16/20 10:42 11:24 10:34 - Today's Visit Information Type of service Follow-up Visit Follow-up Visit Follow-up Visit (Physician/ELECTRICAL ENGINEERING TECHNICIAN (Physician/ELECTRICAL ENGINEERING TECHNICIAN (Physician/ELECTRICAL ENGINEERING TECHNICIAN ) ) ) Arrival Mode Walker Ambulatory, Walker Walker Arrival Mode (Other) sat on rollator , pushed Transfer Assistance None None Accompanied by friend Patient Identification Verified (Name & Yes Yes ) Patient Requires Transmission-Based No No No Precautions Finger Stick Blood Sugar(mg/dl) (if 99 indicated): Blood Sugar Stated by Patient Height and Weight Body Mass Index (BMI) 23.3 23.3 23.3 BMI Classification Normal Normal Normal Vital Signs Temperature (97.8 F-99.1 F) 97.8 F 97.7 F L 96.9 F L Temperature Source Temporal Temporal Temporal Pulse Rate (60-100) 91 73 67 Pulse Location Monitor Monitor Monitor Respiratory Rate (12-18) 20 H 18 16 Respiratory rate source Observation Observation Observation Oxygen Delivery Method Room Air Blood Pressure (90/60-120/80) 140/80 H 125/75 H 109/64 Blood Pressure Mean (mm Hg) 100 91 79 Source Monitor Monitor Monitor Position Sitting Blood Pressure Location Left Arm History Since Last Visit- (Skip if this is Patient's initial visit) Have you changed medications since your No No last visit? Any new allergies or adverse reactions No No No Had a fall/change in ADL's that may No No No increase risk of falls Signs or symptoms of abuse and/or No No neglect since last visit Have you been in the hospital since your No No No last visit? Has dressing in place as prescribed Yes Yes Yes Has compression in place as prescribed Yes Yes Yes Has offloadiing in place as prescribed Yes Yes Yes Experienced any changes in pain level or No No No management Left Footwear No Footwear Surgical Shoe with pressure relief insole Right Footwear Slipper Pain Scale: 0-10 Numeric Is Patient Pain Free? Yes Yes Yes WC - Nurse 1 - General Ulcer Measurement Start: 08/02/20 10:39 Freq: Status: Active Protocol: Activity Type Activity Date Activity User E-Sign Co-Sign Detail Recorded Client Recorded Date Recorded By Document 08/02/20 10:42 DL [id number] 08/02/20 10:51 DL Document 08/09/20 11:24 DL [id number] 08/09/20 11:26 DL Document 08/16/20 10:34 [facility] [id number] 08/16/20 10:45 [facility] 08/02/20 08/09/20 08/16/20 10:42 11:24 10:34 Wound Center Nurse 1 4-left 3rd toe -Current Size (cm) - Length 0.1 -Current Size (cm) - Width 0.1 -Current Size (cm) - Depth 0.1 -Total Square Cm 0.01 -Photo Taken No -Exudate Amt None Present -Wound Margin Thickened -Granulation Amt Large (67-100%) -Granulation Quality Pale -Necrosis Amt None Present (0 %) -Structure Exposed N/A -Texture (Bren-wound Skin Appearance) Scarring -Moisture (Bren-wound Skin Appearance) Dry/Scaly -Color (Bren-wound Skin Appearance) No Abnormality -Tenderness on Palpation (Bren-wound No Skin Appearance) -Ulcer Cleansing Rinsed/ Irrigated with Saline -Foul Odor after Cleansing No -Anesthetic Used 4% Lidocaine Solution #1 L Heel -Combined with other wound No -Current Size (cm) - Length 0.1 0.1 0.1 -Current Size (cm) - Width 0.1 0.1 0.1 -Current Size (cm) - Depth 0.1 0.1 0.1 -Total Square Cm 0.01 0.01 0.01 -Photo Taken No No -Epithelialization Large 67-100% -Tunneling No -Undermining/Tunneling No -Circular Undermining No -Exudate Amt None Present None Present None Present -Wound Margin Thickened -Granulation Amt Small (1-33%) None Present (0 None Present (0 %) %) -Granulation Quality [place] -Slough/Fibrin Yes -Necrosis Amt None Present (0 Small (1-33%) Small (1-33%) %) -Necrotic Tissue Type Adherent Slough Eschar -Structure Exposed N/A N/A -Texture (Bren-wound Skin Appearance) Scarring Scarring Assessed, Scarring -Moisture (Bren-wound Skin Appearance) No Abnormality Dry/Scaly Assessed,Dry/ Scaly -Color (Bren-wound Skin Appearance) No Abnormality No Abnormality Assessed -Temperature (Bren-wound Skin No Abnormality No Abnormality Appearance) (Pt Warm) (Pt Warm) -Tenderness on Palpation (Bren-wound No Skin Appearance) -Ulcer Cleansing Rinsed/ Wound Cleanser Rinsed/ Irrigated with Irrigated with Saline Saline -Foul Odor after Cleansing No No No -Anesthetic Used 4% Lidocaine 4% Lidocaine 5% Lidocaine Solution Solution Gel WC - Nurse 2 - General Ulcer CM Notes Start: 08/02/20 10:39 Freq: Status: Active Protocol: Activity Type Activity Date Activity User E-Sign Co-Sign Detail Recorded Client Recorded Date Recorded By Document 08/02/20 11:03 JF [id number] 08/02/20 11:11 Document 08/09/20 11:44 [id number] 08/09/20 11:49 JF Document 08/16/20 11:21 [id number] 08/16/20 11:24 JF 08/02/20 08/09/20 08/16/20 11:03 11:44 11:21 Wound Center Nurse 2 4-left 3rd toe -Correct Patient No -Correct Side, Site, Position No -Correct Procedure No -Procedure Performed No -Post Debridement (cm) - Length 0 -Post Debridement (cm) - Width 0 -Post Debridement (cm) - Depth 0 -Total Square (Post) (cm) 0 -Area of Debridement (cm) - Length 0 -Area of Debridement (cm) - Width 0 -Total Square (Area) (cm) 0 -Wound/Ulcer Outcome Healed- Epithelialized #1 L Heel -Time 11:07 11:45 11:23 -Correct Patient Yes Yes Yes -Correct Side, Site, Position Yes Yes Yes -Correct Procedure Yes Yes Yes -Procedure Performed Yes Yes Yes -Type of Procedure Debridement Debridement Debridement -Clinical Debridement Subcutaneous Subcutaneous Subcutaneous -Tissue Removed Subcutaneous Subcutaneous Subcutaneous -Post Debridement (cm) - Length 0.5 0.4 0.3 -Post Debridement (cm) - Width 0.5 0.2 0.2 -Post Debridement (cm) - Depth 0.1 0.1 0.1 -Total Square (Post) (cm) 0.25 0.08 0.06 -Area of Debridement (cm) - Length 0.5 0.4 0.3 -Area of Debridement (cm) - Width 0.5 0.2 0.2 -Total Square (Area) (cm) 0.25 0.08 0.06 -Tunneling No No No -Undermining/Tunneling No No No -Circular Undermining No No No -Wound/Ulcer Outcome Not Healed Not Healed Not Healed -Ulcer Cleansing Rinsed/ Rinsed/ Rinsed/ Irrigated with Irrigated with Irrigated with Saline Saline Saline -Foul Odor after Cleansing No No No -Bioengineered Tissue No No No -Bleeding Controlled with Pressure Pressure Pressure -Offloading No No Yes -Type of Offloading Surgical Shoe -Treatment Response Procedure Procedure Procedure Tolerated Well Tolerated Well Tolerated Well -Debridement - Subq, 1st 20sq cm Yes Yes Yes Pain Scale: 0-10 Numeric Is Patient Pain Free? Yes Yes Yes WC - Nurse 3 - General Ulcer D/C NN Start: 08/02/20 10:39 Freq: Status: Active Protocol: Activity Type Activity Date Activity User E-Sign Co-Sign Detail Recorded Client Recorded Date Recorded By Document 08/02/20 11:11 JF [id number] 08/02/20 11:11 Edit Result 08/02/20 11:11 JF (1) [id number] 08/02/20 11:38 JF Document 08/09/20 11:49 JF [id number] 08/09/20 11:49 JF Document 08/16/20 11:36 DL [id number] 08/16/20 11:37 DL (1) #1 L Heel - Primary Dressing Applied C Hydrogel ($) => Promogran Samantha => Matter - Promogran Samantha Matter => 1 08/02/20 08/09/20 08/16/20 11:11 11:49 11:36 Wound Care Nurse 3 #1 L Heel -Ulcer Cleansing Rinsed/ Rinsed/ Rinsed/ Irrigated with Irrigated with Irrigated with Saline Saline Saline -Foul Odor after Cleansing No No No -Primary Dressing Applied Promogran C Hydrogel ($) Promogran Samantha Matter Samantha Matter -Primary Dressing Covered/Secured with Dry Gauze, Dry Gauze, Dry Gauze & Secured with Secured with Roll Gauze, Tape Tape Secured with Tape -Promogran Samantha Matter 1 1 Treatment Response Procedure Tolerated Well Pain Scale: 0-10 Numeric Is Patient Pain Free? Yes Yes Yes WC - Visit Discharge Discharge Condition Stable Stable Stable Ambulatory Status Wheelchair Wheelchair Ambulatory, Walker Transportation Private Auto Private Auto Private Auto Medication Reconcilliation completed & Yes Yes provided to patient/care provider Clinical Summary of Care Provided Yes Yes Wound debrided: Heel Laterality: Left Wound Grade/Stage: [place] 3 Type of Debridement: Excisional debridement Anesthesia Used: 4% Lidocaine Solution Depth: in the subcutaneous layer Percentage of wound debrided: 100 Instrument Used: 3mm curette Tissue Removed: includes fibrous, devitalized, biofilm, callus and slough tissue Severity: Fat Layer Exposed Amount of bleeding with debridement: Mild Bleeding Controlled with: Pressure Patient tolerated procedure: Patient tolerated procedure well
[2020-08-23 10:08] VITALS: BP 171/66; PULSE 73; RESP 16; TEMP 36.2; BMI 23.3
--- NOTE | 2020-08-23 11:50 | PCM.WC.PN ---
History of Present Illness Date of Service: 08/23/20 Chief Complaint: left heel ulcer left ankle ulcer- healed History of Wound: In October 2019, patient had rubbing in shoes while shopping which led to a blister that developed into an ulceration. Patient was then seen in my office for wound care. Patient then became infected and was admitted to the hospital. Patient was noted to have OM on MRI. Patient wanted to avoid surgery so a usp course of appropriate IV antibiotics was the treatment chosen. Patient was also noted to have hyperglycemia and has worked with hospitalist and PCP to try to get better control. Blood sugar levels remain elevated. Patient also had LEAS obtained in the hospital which suggested patient had the proper blood flow to allow healing. Patient has since finished usp course of antibiotics. Patient has since been seen on a weekly basis in office with progression and regression of wound noted over the weeks. Patient has tried various dressing options including wet to dry and santyl. The most progress was noted with Santyl but patient ran out and was unable to refill due to insurance issues. During which time the wound regressed. She also has an offloading surgical shoe and offloading boot to relieve pressure. Patient care is henceforth being carried out at the wound care center. Patient not currently on any antibiotics. Patient has since began skin graft aplications significant improvement is been noted to her foot overall. Patient has finished epifix graft applications with some very small remaining wound noted to left heel. Patient has new wounds noted to bilateral third digits. The right 3rd digit wound has healed. Her left ankle ulcer remains healed Patient relates that ambulation is getting easier and she is rebuilding her strength slowly. She has not had any worsening of minor remaining heel wound since beginning ambulation again. Progress of Wound: Improvement noted to heel ulcer Subjective Subjective Patient seen and examined resting comfortably. Patient denies any new pedal complaints. Patient denies any nausea, fever, chills, chest pain, shortness of breath, cough, streaking, purulence, vomiting. Patient reports ambulation around the house with assistance of roller aid due to feelings of un balance Objective Data Objective Data Vital Signs: Vital Signs Temp Pulse Resp BP 97.1 F L 73 16 171/66 H 08/23/20 10:08 08/23/20 10:08 08/23/20 10:08 08/23/20 10:08 Oxygen Delivery Method Room Air Weight: 63.796 kg Body Mass Index (BMI) 23.3 Physical Exam Const alert and no apparent distress General Appearance: cooperative and comfortable Lymph Lymphatic: no lymphedema noted Resp normal respiratory effort Effort and Inspection: able to speak in complete sentences Extremity normal capillary refill and no calf tenderness General Extremity: edema bilateral lower extremity and no tenderness to palpation of joints or extremities; Negative for clubbing or cyanosis Peripheral Pulses: Yes posterior tibial pulses present left 2+ and dorsalis pedis pulses present left 2+ Skin General Skin Exam: dry skin; Negative for ecchymosis, erythema, eschar, pallor or dermatitis Wounds: wounds noted Wound Narrative: Left posterior medial plantar heel. No malodor, erythema, purulence, probing to bone, streaking, fluctuation, crepitus, or other signs of infection. Skin is atrophic and hairless. Granular base. Maceration has resolved. Scant sanguinous drainage. Noted to have significant decrease in fat pad at the area of ulceration. Underlying calcaneus is easily palpated Anterior left ankle continues to have chronic red changes from irritation some dry skin without wound or other signs of infection. Skin is very dry with flaky areas noted. Neuro Gait (Neuro): assistive device used walker Sensory Exam: extremities light-touch: decreased Motor Exam: strength 5/5 throughout and general weakness Psych Appearance: appropriate Attitude: calm Debridement Note Debridement Note Post-Debridement Measurements and Additional Note: Post-Debridement Measurements/Treatment - Nurse 1 - General Ulcer Assessment Start: 08/02/20 10:39 Freq: Status: Active Protocol: .NATHAN Activity Type Activity Date Activity User E-Sign Co-Sign Detail Recorded Client Recorded Date Recorded By Document 08/02/20 10:42 DL [id number] 08/02/20 10:51 DL Document 08/09/20 11:24 DL [id number] 08/09/20 11:26 DL Document 08/16/20 10:34 [facility] [id number] 08/16/20 10:45 BMF Document 08/23/20 10:08 BMF [id number] 08/23/20 10:17 BMF 08/02/20 08/09/20 08/16/20 10:42 11:24 10:34 - Today's Visit Information Type of service Follow-up Visit Follow-up Visit Follow-up Visit (Physician/SOLE LEVELING MACHINE OPERATOR (Physician/SOLE LEVELING MACHINE OPERATOR (Physician/SOLE LEVELING MACHINE OPERATOR ) ) ) Arrival Mode Walker Ambulatory, Walker Walker Arrival Mode (Other) sat on rollator , pushed Transfer Assistance None None Accompanied by friend Patient Identification Verified (Name & Yes Yes ) Patient Requires Transmission-Based No No No Precautions Finger Stick Blood Sugar(mg/dl) (if 99 indicated): Blood Sugar Stated by Patient Height and Weight Body Mass Index (BMI) 23.3 23.3 23.3 BMI Classification Normal Normal Normal Vital Signs Temperature (97.8 F-99.1 F) 97.8 F 97.7 F L 96.9 F L Temperature Source Temporal Temporal Temporal Pulse Rate (60-100) 91 73 67 Pulse Location Monitor Monitor Monitor Respiratory Rate (12-18) 20 H 18 16 Respiratory rate source Observation Observation Observation Oxygen Delivery Method Room Air Blood Pressure (90/60-120/80) 140/80 H 125/75 H 109/64 Blood Pressure Mean (mm Hg) 100 91 79 Source Monitor Monitor Monitor Position Sitting Blood Pressure Location Left Arm History Since Last Visit- (Skip if this is Patient's initial visit) Have you changed medications since your No No last visit? Any new allergies or adverse reactions No No No Had a fall/change in ADL's that may No No No increase risk of falls Signs or symptoms of abuse and/or No No neglect since last visit Have you been in the hospital since your No No No last visit? Has dressing in place as prescribed Yes Yes Yes Has compression in place as prescribed Yes Yes Yes Has offloadiing in place as prescribed Yes Yes Yes Experienced any changes in pain level or No No No management Left Footwear No Footwear Surgical Shoe with pressure relief insole Right Footwear Slipper Other Footwear Pain Scale: 0-10 Numeric Is Patient Pain Free? Yes Yes Yes 08/23/20 10:08 - Today's Visit Information Type of service Follow-up Visit (Physician/SOLE LEVELING MACHINE OPERATOR ) Arrival Mode Walker Arrival Mode (Other) Transfer Assistance None Accompanied by friend Patient Identification Verified (Name & Yes ) Patient Requires Transmission-Based No Precautions Finger Stick Blood Sugar(mg/dl) (if 145 indicated): Blood Sugar Stated by Patient Height and Weight Body Mass Index (BMI) 23.3 BMI Classification Normal Vital Signs Temperature (97.8 F-99.1 F) 97.1 F L Temperature Source Temporal Pulse Rate (60-100) 73 Pulse Location Monitor Respiratory Rate (12-18) 16 Respiratory rate source Observation Oxygen Delivery Method Room Air Blood Pressure (90/60-120/80) 171/66 H Blood Pressure Mean (mm Hg) 101 Source Monitor Position Sitting Blood Pressure Location Left Arm History Since Last Visit- (Skip if this is Patient's initial visit) Have you changed medications since your No last visit? Any new allergies or adverse reactions No Had a fall/change in ADL's that may No increase risk of falls Signs or symptoms of abuse and/or No neglect since last visit Have you been in the hospital since your No last visit? Has dressing in place as prescribed Yes Has compression in place as prescribed N/A Has offloadiing in place as prescribed Yes Experienced any changes in pain level or No management Left Footwear Other Footwear (Comment) Right Footwear Other Footwear (Comment) Other Footwear non skid socks Pain Scale: 0-10 Numeric Is Patient Pain Free? Yes WC - Nurse 1 - General Ulcer Measurement Start: 08/02/20 10:39 Freq: Status: Active Protocol: Activity Type Activity Date Activity User E-Sign Co-Sign Detail Recorded Client Recorded Date Recorded By Document 08/02/20 10:42 DL [id number] 08/02/20 10:51 DL Document 08/09/20 11:24 DL [id number] 08/09/20 11:26 DL Document 08/16/20 10:34 [facility] [id number] 08/16/20 10:45 BM Document 08/23/20 10:08 BMF [id number] 08/23/20 10:17 BMF 08/02/20 08/09/20 08/16/20 10:42 11:24 10:34 Wound Center Nurse 1 4-left 3rd toe -Current Size (cm) - Length 0.1 -Current Size (cm) - Width 0.1 -Current Size (cm) - Depth 0.1 -Total Square Cm 0.01 -Photo Taken No -Exudate Amt None Present -Wound Margin Thickened -Granulation Amt Large (67-100%) -Granulation Quality Pale -Necrosis Amt None Present (0 %) -Structure Exposed N/A -Texture (Bren-wound Skin Appearance) Scarring -Moisture (Bren-wound Skin Appearance) Dry/Scaly -Color (Bren-wound Skin Appearance) No Abnormality -Tenderness on Palpation (Bren-wound No Skin Appearance) -Ulcer Cleansing Rinsed/ Irrigated with Saline -Foul Odor after Cleansing No -Anesthetic Used 4% Lidocaine Solution #1 L Heel -Combined with other wound No -Current Size (cm) - Length 0.1 0.1 0.1 -Current Size (cm) - Width 0.1 0.1 0.1 -Current Size (cm) - Depth 0.1 0.1 0.1 -Total Square Cm 0.01 0.01 0.01 -Photo Taken No No -Epithelialization Large 67-100% -Tunneling No -Undermining/Tunneling No -Circular Undermining No -Exudate Amt None Present None Present None Present -Exudate Type -Wound Margin Thickened -Granulation Amt Small (1-33%) None Present (0 None Present (0 %) %) -Granulation Quality [place] -Slough/Fibrin Yes -Necrosis Amt None Present (0 Small (1-33%) Small (1-33%) %) -Necrotic Tissue Type Adherent Slough Eschar -Structure Exposed N/A N/A -Texture (Bren-wound Skin Appearance) Scarring Scarring Assessed, Scarring -Moisture (Bren-wound Skin Appearance) No Abnormality Dry/Scaly Assessed,Dry/ Scaly -Color (Bren-wound Skin Appearance) No Abnormality No Abnormality Assessed -Temperature (Bren-wound Skin No Abnormality No Abnormality Appearance) (Pt Warm) (Pt Warm) -Tenderness on Palpation (Bren-wound No Skin Appearance) -Ulcer Cleansing Rinsed/ Wound Cleanser Rinsed/ Irrigated with Irrigated with Saline Saline -Foul Odor after Cleansing No No No -Anesthetic Used 4% Lidocaine 4% Lidocaine 5% Lidocaine Solution Solution Gel Lower Limb Edema Present Left Calf (cm) Left Ankle (cm) 08/23/20 10:08 Wound Center Nurse 1 4-left 3rd toe -Current Size (cm) - Length -Current Size (cm) - Width -Current Size (cm) - Depth -Total Square Cm -Photo Taken -Exudate Amt -Wound Margin -Granulation Amt -Granulation Quality -Necrosis Amt -Structure Exposed -Texture (Bren-wound Skin Appearance) -Moisture (Bren-wound Skin Appearance) -Color (Bren-wound Skin Appearance) -Tenderness on Palpation (Bren-wound Skin Appearance) -Ulcer Cleansing -Foul Odor after Cleansing -Anesthetic Used #1 L Heel -Combined with other wound No -Current Size (cm) - Length 0.5 -Current Size (cm) - Width 0.3 -Current Size (cm) - Depth 0.1 -Total Square Cm 0.15 -Photo Taken No -Epithelialization None Present -Tunneling No -Undermining/Tunneling No -Circular Undermining No -Exudate Amt Small -Exudate Type Serosanguineous -Wound Margin Distinct, Outline Attached -Granulation Amt Small (1-33%) -Granulation Quality Red -Slough/Fibrin Yes -Necrosis Amt Large (67-100%) -Necrotic Tissue Type Adherent Slough -Structure Exposed -Texture (Bren-wound Skin Appearance) Assessed, Scarring -Moisture (Bren-wound Skin Appearance) Assessed -Color (Bren-wound Skin Appearance) Assessed -Temperature (Bren-wound Skin No Abnormality Appearance) (Pt Warm) -Tenderness on Palpation (Bren-wound No Skin Appearance) -Ulcer Cleansing Rinsed/ Irrigated with Saline -Foul Odor after Cleansing No -Anesthetic Used 5% Lidocaine Gel Lower Limb Edema Present Yes Left Calf (cm) 38.6 Left Ankle (cm) 20.4 - Nurse 2 - General Ulcer CM Notes Start: 08/02/20 10:39 Freq: Status: Active Protocol: Activity Type Activity Date Activity User E-Sign Co-Sign Detail Recorded Client Recorded Date Recorded By Document 08/02/20 11:03 [id number] 08/02/20 11:11 Document 08/09/20 11:44 [id number] 08/09/20 11:49 Document 08/16/20 11:21 [id number] 08/16/20 11:24 Document 08/23/20 10:42 [id number] 08/23/20 10:50 08/02/20 08/09/20 08/16/20 11:03 11:44 11:21 Wound Center Nurse 2 4-left 3rd toe -Correct Patient No -Correct Side, Site, Position No -Correct Procedure No -Procedure Performed No -Post Debridement (cm) - Length 0 -Post Debridement (cm) - Width 0 -Post Debridement (cm) - Depth 0 -Total Square (Post) (cm) 0 -Area of Debridement (cm) - Length 0 -Area of Debridement (cm) - Width 0 -Total Square (Area) (cm) 0 -Wound/Ulcer Outcome Healed- Epithelialized #1 L Heel -Time 11:07 11:45 11:23 -Correct Patient Yes Yes Yes -Correct Side, Site, Position Yes Yes Yes -Correct Procedure Yes Yes Yes -Procedure Performed Yes Yes Yes -Type of Procedure Debridement Debridement Debridement -Clinical Debridement Subcutaneous Subcutaneous Subcutaneous -Tissue Removed Subcutaneous Subcutaneous Subcutaneous -Post Debridement (cm) - Length 0.5 0.4 0.3 -Post Debridement (cm) - Width 0.5 0.2 0.2 -Post Debridement (cm) - Depth 0.1 0.1 0.1 -Total Square (Post) (cm) 0.25 0.08 0.06 -Area of Debridement (cm) - Length 0.5 0.4 0.3 -Area of Debridement (cm) - Width 0.5 0.2 0.2 -Total Square (Area) (cm) 0.25 0.08 0.06 -Tunneling No No No -Undermining/Tunneling No No No -Circular Undermining No No No -Wound/Ulcer Outcome Not Healed Not Healed Not Healed -Ulcer Cleansing Rinsed/ Rinsed/ Rinsed/ Irrigated with Irrigated with Irrigated with Saline Saline Saline -Foul Odor after Cleansing No No No -Bioengineered Tissue No No No -Bleeding Controlled with Pressure Pressure Pressure -Offloading No No Yes -Type of Offloading Surgical Shoe -Treatment Response Procedure Procedure Procedure Tolerated Well Tolerated Well Tolerated Well -Debridement - Subq, 1st 20sq cm Yes Yes Yes Pain Scale: 0-10 Numeric Is Patient Pain Free? Yes Yes Yes 08/23/20 10:42 Wound Center Nurse 2 4-left 3rd toe -Correct Patient -Correct Side, Site, Position -Correct Procedure -Procedure Performed -Post Debridement (cm) - Length -Post Debridement (cm) - Width -Post Debridement (cm) - Depth -Total Square (Post) (cm) -Area of Debridement (cm) - Length -Area of Debridement (cm) - Width -Total Square (Area) (cm) -Wound/Ulcer Outcome #1 L Heel -Time 10:44 -Correct Patient Yes -Correct Side, Site, Position Yes -Correct Procedure Yes -Procedure Performed Yes -Type of Procedure Debridement -Clinical Debridement Subcutaneous -Tissue Removed Subcutaneous -Post Debridement (cm) - Length 0.1 -Post Debridement (cm) - Width 0.1 -Post Debridement (cm) - Depth 0.1 -Total Square (Post) (cm) 0.01 -Area of Debridement (cm) - Length 0.1 -Area of Debridement (cm) - Width 0.1 -Total Square (Area) (cm) 0.01 -Tunneling No -Undermining/Tunneling No -Circular Undermining No -Wound/Ulcer Outcome Not Healed -Ulcer Cleansing Rinsed/ Irrigated with Saline -Foul Odor after Cleansing No -Bioengineered Tissue No -Bleeding Controlled with Pressure -Offloading Yes -Type of Offloading Surgical Shoe -Treatment Response Procedure Tolerated Well -Debridement - Subq, 1st 20sq cm Yes Pain Scale: 0-10 Numeric Is Patient Pain Free? Yes - Nurse 3 - General Ulcer D/C NN Start: 08/02/20 10:39 Freq: Status: Active Protocol: Activity Type Activity Date Activity User E-Sign Co-Sign Detail Recorded Client Recorded Date Recorded By Document 08/02/20 11:11 JF [id number] 08/02/20 11:11 JF Edit Result 08/02/20 11:11 JF (1) [id number] 08/02/20 11:38 JF Document 08/09/20 11:49 JF [id number] 08/09/20 11:49 JF Document 08/16/20 11:36 DL [id number] 08/16/20 11:37 DL Document 08/23/20 10:51 JF [id number] 08/23/20 10:51 JF (1) #1 L Heel - Primary Dressing Applied C Hydrogel ($) => Promogran Samantha => Matter - Promogran Samantha Matter => 1 08/02/20 08/09/20 08/16/20 11:11 11:49 11:36 Wound Care Nurse 3 #1 L Heel -Ulcer Cleansing Rinsed/ Rinsed/ Rinsed/ Irrigated with Irrigated with Irrigated with Saline Saline Saline -Foul Odor after Cleansing No No No -Primary Dressing Applied Promogran C Hydrogel ($) Promogran Samantha Matter Samantha Matter -Primary Dressing Covered/Secured with Dry Gauze, Dry Gauze, Dry Gauze & Secured with Secured with Roll Gauze, Tape Tape Secured with Tape -Promogran Samantha Matter 1 1 Treatment Response Procedure Tolerated Well Pain Scale: 0-10 Numeric Is Patient Pain Free? Yes Yes Yes - Visit Discharge Discharge Condition Stable Stable Stable Ambulatory Status Wheelchair Wheelchair Ambulatory, Walker Transportation Private Auto Private Auto Private Auto Medication Reconcilliation completed & Yes Yes provided to patient/care provider Clinical Summary of Care Provided Yes Yes 08/23/20 10:51 Wound Care Nurse 3 #1 L Heel -Ulcer Cleansing Rinsed/ Irrigated with Saline -Foul Odor after Cleansing No -Primary Dressing Applied NonAdherent Contact Layer -Primary Dressing Covered/Secured with Dry Gauze, Secured with Tape -Promogran Samantha Matter Treatment Response Pain Scale: 0-10 Numeric Is Patient Pain Free? Yes WC - Visit Discharge Discharge Condition Stable Ambulatory Status Wheelchair Transportation Private Auto Medication Reconcilliation completed & Yes provided to patient/care provider Clinical Summary of Care Provided Yes Wound debrided: Heel Laterality: Left Wound Grade/Stage: Glasgow 3 Type of Debridement: Excisional debridement Anesthesia Used: 4% Lidocaine Solution Depth: in the subcutaneous layer Percentage of wound debrided: 100 Instrument Used: 3mm curette Tissue Removed: includes fibrous, devitalized, biofilm, callus and slough tissue Severity: Fat Layer Exposed Amount of bleeding with debridement: Mild Bleeding Controlled with: Pressure Patient tolerated procedure: Patient tolerated procedure well Assessment/Plan Assessment/Plan (1) Pressure ulcer of left heel, stage 2: CODE(S): L89.622 - Pressure ulcer of left heel, stage 2 (2) Type II diabetes mellitus: CODE(S): E11.9 - Type 2 diabetes mellitus without complications QUALIFIERS: Diabetes mellitus rat exterminator insulin use: unspecified usp insulin use status Diabetes mellitus complication status: with neurologic complications Diabetes mellitus complication detail: with polyneuropathy Qualified Code(s): E11.42 - Type 2 diabetes mellitus with diabetic polyneuropathy (3) Pain in left foot: CODE(S): M79.672 - Pain in left foot PLAN: Patient seen and examined with boyfriend present. Wounds noted to have improved. Patient relates that she has been ambulating with a walker without incident over the last week. Wounds have not worsened given her new ambulatory status. Patient relates that he has not noticed any drainage recently. She has been using her roller aid to assist in ambulation Patient has history of osteomyelitis with ulcer probing to bone with hospital stay and course of IV antiboitics. Patient wished to avoid surgical resection. Patient has since finished course of antibiotics. heel wound to left heel was sharply debrided without incident after verbal consent was obtained. Patient encouraged to lotion anterior ankle left area skin is very dry as well as to pad area well to prevent future breakdown with dressing changes as area is dry and red from irritation much improved since switching to Mepilex border dressing for heel wound. Patient to continue offloading heel. Patient has offloaded heel surgical shoe and prevalon boot for offloading. Patient had recent LEAS showing a left RONIT of 1.2 and TBI of 0.74 with triphasic waveforms. Discussed importance of offloading, blood sugar control, diet, and proper wound care to optimize healing potential. Discussed seeing a cost control supervisor for education on proper nutrition. Patient relates she saw one last year. Continue daily wound care. Patient is to start Samantha dressing changes as she has finished her epi fix graft applications. Patient to begin building her strength back up and with ambulation. Discussed how to do this properly. Discussed using her roller aid until she regains some of her strength. Patient has appointment tomorrow for diabetic shoes. Discussed that she may need some offloading to her heel given that pad atrophy. Educated patient on signs and symptoms of infection to watch out for and to contact office or go to ED if seen. Patient to follow up in 1 week. This note was generated with [employer] dictation software. It may contain incorrect words, spelling, and punctuation that were not noted in checking the note before signing. The problems addressed require a low medical decision making level which includes two or more minor problems, a stable chronic illness, or an acute uncomplicated illness or injury.
== END 2020-08-29 23:59 ==
LOC: WC 10:45
PROVIDERS: PCP Family Medicine; Referring Provider Podiatrist; Visit Provider Podiatrist Foot & Ankle Surgery
DX: L89.622 Pressure ulcer of left heel, stage 2 (principal); E11.42 Type 2 diabetes mellitus with diabetic polyneuropathy; E11.65 Type 2 diabetes mellitus with hyperglycemia; Z79.4 Long term (current) use of insulin; Z87.820 Personal history of traumatic brain injury
CPT/HCPCS: 11042

== ENCOUNTER → 2020-09-06 09:26 | Outpatient (RCR) | payer MEDICARE, MEDICAID, SELFPAY ==
[2020-08-23 10:08] VITALS: BMI 23.3
[2020-08-30 00:24] VITALS: BP 171/66; PULSE 73; RESP 16; TEMP 36.2
[2020-09-06 08:47] VITALS: BP 147/72; PULSE 80; RESP 16; TEMP 37; BMI 23.3
--- NOTE | 2020-09-07 13:03 | PCM.WC.PN ---
History of Present Illness Date of Service: 09/06/20 Chief Complaint: left heel ulcer left ankle ulcer- healed History of Wound: In October 2019, patient had rubbing in shoes while shopping which led to a blister that developed into an ulceration. Patient was then seen in my office for wound care. Patient then became infected and was admitted to the hospital. Patient was noted to have OM on MRI. Patient wanted to avoid surgery so a penitentiary course of appropriate IV antibiotics was the treatment chosen. Patient was also noted to have hyperglycemia and has worked with hospitalist and PCP to try to get better control. Blood sugar levels remain elevated. Patient also had LEAS obtained in the hospital which suggested patient had the proper blood flow to allow healing. Patient has since finished medical terminologist course of antibiotics. Patient has since been seen on a weekly basis in office with progression and regression of wound noted over the weeks. Patient has tried various dressing options including wet to dry and santyl. The most progress was noted with Santyl but patient ran out and was unable to refill due to insurance issues. During which time the wound regressed. She also has an offloading surgical shoe and offloading boot to relieve pressure. Patient care is henceforth being carried out at the wound care center. Patient not currently on any antibiotics. Patient has since began skin graft aplications significant improvement is been noted to her foot overall. Patient has finished epifix graft applications with some very small remaining wound noted to left heel. Patient has new wounds noted to bilateral third digits. The right 3rd digit wound has healed. Her left ankle ulcer remains healed Patient relates that ambulation is getting easier and she is rebuilding her strength slowly. She has not had any worsening of minor remaining heel wound since beginning ambulation again. Progress of Wound: wound has healed Subjective Subjective Patient seen and examined resting comfortably. Patient denies any new pedal complaints. Patient denies any nausea, fever, chills, chest pain, shortness of breath, cough, streaking, purulence, vomiting. Objective Data Objective Data Vital Signs: Vital Signs Temp Pulse Resp BP 98.6 F 80 16 147/72 H 09/06/20 08:47 09/06/20 08:47 09/06/20 08:47 09/06/20 08:47 Oxygen Delivery Method Room Air Weight: 63.796 kg Body Mass Index (BMI) 23.3 Physical Exam Narrative Const alert and no apparent distress General Appearance: cooperative and comfortable Lymph Lymphatic: no lymphedema noted Resp normal respiratory effort Effort and Inspection: able to speak in complete sentences Extremity normal capillary refill and no calf tenderness General Extremity: edema bilateral lower extremity and no tenderness to palpation of joints or extremities; Negative for clubbing or cyanosis Peripheral Pulses: Yes posterior tibial pulses present left 2+ and dorsalis pedis pulses present left 2+ Skin General Skin Exam: dry skin; Negative for ecchymosis, erythema, eschar, pallor or dermatitis Wound Narrative: Left posterior medial plantar heel ulceration is noted to have healed Anterior left ankle continues to have chronic red changes from irritation some dry skin without wound or other signs of infection. Skin is very dry with flaky areas noted. Neuro Gait (Neuro): assistive device used walker Sensory Exam: extremities light-touch: decreased Motor Exam: strength 5/5 throughout and general weakness Psych Appearance: appropriate Attitude: calm Assessment/Plan Assessment/Plan (1) Pressure ulcer of left heel, stage 2: CODE(S): L89.622 - Pressure ulcer of left heel, stage 2 (2) Pain in left foot: CODE(S): M79.672 - Pain in left foot (3) Type II diabetes mellitus: CODE(S): E11.9 - Type 2 diabetes mellitus without complications QUALIFIERS: Diabetes mellitus medical terminologist insulin use: unspecified penitentiary insulin use status Diabetes mellitus complication status: with neurologic complications Diabetes mellitus complication detail: with polyneuropathy Qualified Code(s): E11.42 - Type 2 diabetes mellitus with diabetic polyneuropathy PLAN: Patient seen and examined Heel wound is noted to have healed. Patient seen and examined. Ulceration site is noted to have healed. Reviewed with the patient concerning signs and symptoms to watch out for in the future. Reviewed proper foot care and shoe gear with the patient. Educated patient on proper foot care, and the importance of daily foot checks. All questions were answered. Patient to follow up immediately with any problems, questions and/or concerns. Patient to follow up at the foot and ankle Center for continued foot checks or as needed if something new occurs This note was generated with [employer] software. It may contain incorrect words, spelling, and punctuation that were not noted in checking the note before signing. The problems addressed require a low medical decision making level which includes two or more minor problems, a stable chronic illness, or an acute uncomplicated illness or injury.
== END | disposition home or self-care (01) ==
LOC: WC 09:25
PROVIDERS: PCP Family Medicine; Referring Provider Podiatrist; Visit Provider Podiatrist Foot & Ankle Surgery
DX: L89.622 Pressure ulcer of left heel, stage 2 (principal); M79.672 Pain in left foot; E11.42 Type 2 diabetes mellitus with diabetic polyneuropathy; Z79.4 Long term (current) use of insulin
CPT/HCPCS: 99213; G0463

== ENCOUNTER → 2021-01-16 14:02 | Outpatient (CLI) | payer BC, MEDICARE, SELFPAY ==
[2021-01-16 14:35] LABS: Potassium 4.2 mmol/L (3.5-5.1)
== END ==
PROVIDERS: PCP Family Medicine; Referring Provider Family Medicine; Visit Provider Family Medicine
DX: E87.5 Hyperkalemia (principal)
CPT/HCPCS: 36415; 84132

== ENCOUNTER 2021-02-03 06:24 | Day surgery (SDC) | payer MEDICARE, MEDICAID, SELFPAY ==
--- NOTE | 2021-02-03 | COLBX_PTH ---
PATIENT: LAYNE VINCENT LOC: EN U#:[id number] AGE/SX: 60/F ROOM: RE02/03/[address]: Dr. Cisco Krueger MD : 1960 BED: DIS: 02/03/2021 SPEC #: [id number] RECD: 02/03/21 13:37 STATUS: LUISITO MCCAIN #: [id number] RENEE: 02/03/21 00:[address]: Cisco Krueger DEPT: SURGICAL PATHOLOGY RECD BY: Rm Lee ENTERED: 02/03/21 13:38 SP TYPE: COLON BX OTHR DR: Dr. Dennys Serrano MD Tissues: A - Duodenum, NOS B - Gastric mucous membrane C - Stomach, NOS D - Esophageal mucous membrane E - Esophageal mucous membrane F - COLON BIOPSY Procedures: Special Stain Group II Surgery Specimen Level IV Alcian Blue/PAS (control) HEADER OPERATION: Colonoscopy, EGD ([facility] [place]) PRE-OP DIAGNOSIS: History of colonic polyps, anemia TISSUE SUBMITTED: A - Duodenum biopsy, B - Antrum biopsy for H. pylori and path, C - Greater curvature polyp biopsy, D - Distal esophagus biopsy, E - Mid esophagus biopsy, F - Random colon biopsy MICROSCOPIC DIAGNOSIS A. Duodenum, biopsy: No pathologic change. B. Gastric antrum, biopsy: Chronic gastritis. See comment. C. Greater curvature of gastric polyp, biopsy: Fundic gland polyp. D. Distal esophagus, biopsy: Fragments of benign squamous mucosa with focal changes of reflux. No evidence of goblet cell metaplasia. See comment. E. Mid esophagus, biopsy: Fragments of benign squamous mucosa. No evidence of inflammation. F. Colon, random biopsy: No pathologic change. See comment. AM:mague 02/06/2021 COMMENT B. The results of immunohistochemistry for Helicobacter pylori will be reported separately ([id number]). D. Alcian blue/PAS stain with matched control supports the above diagnosis. F. Eosins are focally increased in the mucosa. The significance of this is unclear. Clinical correlation is suggested. MICROSCOPIC DESCRIPTION Slides are reviewed. GROSS DESCRIPTION A - Received in fixative is one container labeled with the patient's name and designated duodenum biopsy. The specimen consists of two irregular fragments of light blackwell soft tissue that in aggregate measure 0.6 x 0.3 x 0.1 cm. The specimen is totally submitted in one cassette. B - Received in fixative is one container labeled with the patient's name and designated antrum biopsy. The specimen consists of one irregular fragment of light blackwell soft tissue that measures 0.4 x 0.2 x 0.1 cm. The specimen is totally submitted in one cassette. C - Received in fixative is one container labeled with the patient's name and designated greater curvature polyp biopsy. The specimen consists of two irregular fragments of light blackwell soft tissue that in aggregate measure 0.4 x 0.2 x 0.1 cm. The specimen is totally submitted in one cassette. D - Received in fixative is one container labeled with the patient's name and designated distal esophagus, biopsy. The specimen consists of two irregular fragments of light blackwell soft tissue that in aggregate measure 0.5 x 0.3 x 0.1 cm. The specimen is totally submitted in one cassette. E - Received in fixative is one container labeled with the patient's name and designated mid esophagus biopsy. The specimen consists of two irregular fragments of light blackwell soft tissue that in aggregate measure 0.4 x 0.4 x 0.1 cm. The specimen is totally submitted in one cassette. F - Received in fixative is one container labeled with the patient's name and designated random colonic biopsy. The specimen consists of multiple irregular fragments of light blackwell soft tissue that in aggregate measure 1.2 x 0.3 x 0.1 cm. The specimen is totally submitted in one cassette. / SJ:mague 02/03/21 TC:3 CPT: 81460 x6, 00093
--- NOTE | 2021-02-03 06:55 | PCM.HP.BLA ---
History and Physical Date of Admission: 02/03/21 Intake Visit Reasons: CSCOPE, EGD Chief Complaint: Left Foot Wound Allergies metformin Adverse Reaction (Verified 01/16/21 13:51) Diarrhea Medications diltiazem HCl 180 mg PO DAILY 12/17/18 [History Confirmed 01/16/21] insulin glargine 20 units SUBCUT QHS 12/17/18 [History Confirmed 01/16/21] insulin lispro See Protocol SQ TIDCM 12/17/18 [History Confirmed 01/16/21] magnesium oxide 400 mg PO BID 12/17/18 [History Confirmed 01/16/21] ondansetron 4 mg PO Q6H PRN 12/17/18 [History Confirmed 01/16/21] polyethylene glycol 3350 17 gram/dose oral powder 17 g PO DAILY PRN PRN 02/16/19 [History Confirmed 01/16/21] pregabalin 50 mg capsule 50 mg PO TID 02/17/19 [History Confirmed 03/15/20] tramadol 50 mg PO Q8H 05/04/19 [History Confirmed 03/15/20] aspirin 81 mg PO DAILY@0800 12/15/19 [History Confirmed 01/16/21] atorvastatin 40 mg PO QHS 12/15/19 [History Confirmed 01/16/21] nut.tx.gluc intol,lf,soy-fiber 237 ml PO BID 12/15/19 [History Confirmed 01/16/21] pantoprazole 40 mg PO DAILY 12/15/19 [History Confirmed 01/16/21] clonidine HCl 0.3 mg PO TID 30 Days #90 tab 12/19/19 [Rx Confirmed 01/16/21] insulin lispro 3 unit SUBCUT TIDCM insuln.pen 12/19/19 [Rx Confirmed 01/16/21] PFSH Medical History (Updated 01/16/21 @ 05:[address] Cisco Krueger MD) Chronic pain syndrome Essential hypertension History of orthostatic hypotension HLD (hyperlipidemia) Malnutrition Migraine without aura Post-concussion syndrome Type II diabetes mellitus Vertigo Surgical History History of cholecystectomy History of mandibular surgery Family History Mother Hypertension Father Cancer lymphoma, leukemia Emphysema of lung Grandmother Diabetes Social History (Updated 09/15/19 @ 14:56 by Samm Syed AMMONIA REFRIGERATION TECHNICIAN, AMMONIA REFRIGERATION TECHNICIAN-C) Smoking Status: Never smoker alcohol intake: never substance use type: does not use HPI HPI HPI: LAYNE VINCENT, is a 60 F who presents to the office today for surgical consultation by Nicole Kemp CNP and Dr. Dennys Serrano. Concern is over possible colitis/additionally gastroparesis. The patient had a previous colonoscopy done on December 24, [address] Stuart. A 10 mm polyp was seen in the sigmoid 20 cm proximal to the anus and it was hyperplastic. The patient had a previous CT on November 07, 2019 suggesting stranding of the transverse and descending colon at that time as well as tortuosity and some fluid in the left pericolic gutter. Apparently she had a significant elevated blood glucose of 480 at that time. Patient's primary complaint is intermittent severe diarrhea. It is of note however the patient is on magnesium oxide There are concerns because of her uncontrollable diabetes that she has developed diabetic gastroparesis. She claims she alternates between constipation diarrhea. She has had foot wound infections requiring wound care center and home antibiotics. She has chronic lower extremity swelling. She continues to have an elevated hemoglobin A1c. It appears December 19, 2020 it was 9.5. As of January 25, 2020 her hemoglobin was 9.5 with a hematocrit of 38 and platelet count of 207,000. ESR at that time was 50. Her BUN was 12 and creatinine 1.18. She is being referred for consideration of a combined esophagogastroduodenoscopy and colonoscopy. Concerns are regarding her chronic anemia and personal history of colon polyp. ROS General General: No weight change, appetite, fatigue, colon cancer, breast cancer or weakness HEENT HEENT: Yes eye injury and eye surgery; No difficulty swallowing, swollen glands or hoarseness Endo Endocrine: Yes diabetes mellitus; No thyroid disease, thyroid cancer, Hair loss, heat intolerance or cold intolerance Skin Skin: No rash or changing moles Breast Breast: No left breast lump, right breast lump, nipple discharge, breast pain, abnormal mammogram, abnormal US or breast enlargement Musc Musculoskeletal: No back problems, arthritis, rheumatoid arthritis, gout or joint pain Cardio Cardiovascular: Yes high blood pressure; No murmur, pacemaker, heart disease, atrial fibrillation, heart attack, heart stent, palpitations, shortness of breat with exertion or chest pain Psych Psychiatric: No depression, anxiety or hearing voices Resp Respiratory: No shortness of breath, No sleep apnea, No cough, No COPD, No asthma, No emphysema and No wheezing Gastro Gastrointestinal: No abdominal pain, Yes nausea or vomiting, Yes diarrhea, Yes constipation, No blood in stool, No acid reflux, No hemorrhoids, No ulcers, No gallbladder problem and No black,tarry stools Jalil Hematologic: No blood thinners, No blood disorders, No bleeding, No anemia and No blood clots Neuro Neurologic: No system reviewed and no additional complaints, except as documented, No as per HPI, No abnormal gait, No abnormal hearing, No abnormal movements, No abnormal speech, No behavioral changes, No burning sensations, No confusion, No convulsions, No disequilibrium, No dizziness, No localized weakness, No frequent falls, No headache(s), No lack of coordination, No loss of vision, No memory loss, No numbness, No other visual disturbances, No radicular pain, No restless legs, No sensory deficit, No syncope, No tingling, No tremor(s), No weakness and No other Exam Const General: cooperative, comfortable and no acute distress Nutritional Appearance: overweight Orientation: alert and awake [facility] Head: normal to inspection Eyes General: appearance normal, both eyes and all related structures Resp Other: Poor respiratory excursion but clear Cardio Rate: regular rate Rhythm: regular rhythm GI Other: Soft, nontender, normal bowel sounds, well-healed laparoscopic incisions for cholecystectomy Skin Other: Lower extremities notably swollen at least 3+ nonpitting. Neuro Other: Patient states that she is confused with much of her medical care. She simply would like to have the cycle of constipation and diarrhea has ceased. Extrem Other: 3+ bilateral extremity nonpitting swelling Psych Other: Normal affect, quiet COVID (Procedure Consent) Procedure Criteria Procedure Criteria: Yes Elective The surgeon/proceduralist and patient have discussed in detail the risk of exposure to and/or potential harm posed by the COVID-19 virus with having a surgery/procedure at this time versus the risk of delaying the surgery/procedure. It is not possible to know either the risk of delaying the surgery or procedure or chance of getting an infection with perfect accuracy, but a joint decision was made between the patient and the surgeon/proceduralist to proceed at this time with the scheduled surgery/procedure as indicated on the consent form. Assessment and Plan Assessment and Plan (1) Personal history of colonic polyps: Status: Acute (2) Chronic anemia: Status: Chronic Plan - Dr. Cisco Krueger MD: Patient has personal history of colon polyps and chronic anemia. She has diarrhea and constipation. There is concerned about gastroparesis secondary to none controlled diabetes. I propose for her a combined esophagogastroduodenoscopy with possible biopsy and colonoscopy with possible biopsy or polypectomy as indicated. She is aware of technique, benefit, risk, alternatives. She has had an opportunity to ask and have questions answered. Unfortunate is not clear that she has a surgical resolution to her problem. I anticipate obtaining biopsies were indicated. I appreciate the opportunity of assisting with surgical care. Copy: Nicole Kemp NP-C and Dr. Dennys Krueger M.D., F.A.C.S. I have re-examined the patient. There are no clinical changes since date of exam. Cisco Krueger M.D., F.A.C.S.
[2021-02-03 06:59] VITALS: BP 190/88; PULSE 89; RESP 16; TEMP 36.4; O2SAT 100; BMI 29.0
[2021-02-03] MEDS: Lactated Ringers 1,000 ML 100 ML IV (07:08)
--- NOTE | 2021-02-03 07:30 | IMM_PTH ---
PATIENT: LAYNE VINCENT LOC: EN U#:[id number] AGE/SX: 60/F ROOM: RE02/03/[address]: Dr. Cisco Krueger MD : 1960 BED: DIS: 02/03/2021 SPEC #: [id number] RECD: 02/03/21 15:19 STATUS: LUISITO REManoj #: [id number] RENEE: 02/03/21 07:[address]: Cisco Krueger DEPT: IMMUNOHISTOCHEMISTRY RECD BY: Dottie Morocho ENTERED: 02/03/21 15:19 SP TYPE: IMMUNO OTHR DR: Dr. Dennys Serrano MD Tissues: B - Stomach, NOS Procedures: H Pylori (initial) PHYSICIAN & INSTITUTION [place] [id number] SPECIMEN INFORMATION: Tissue Source: B ? Antrum biopsy Clinical Info: History of colonic polyps, anemia Specimen Number: [id number] CPT code: 62723 METHODOLOGY: Deparaffinized sections of prefer/formalin-fixed tissue or PAP/DQ stained slides are incubated with monoclonal/polyclonal antibodies/oligonucleotide probes. Localization is made via biotin free immunoperoxidase method. Appropriate controls are performed and reacted as expected. Results on target cell population are indicated in the following table: RESULTS: ANTIBODY / CLONE RESULT Block B H Pylori (polyclonal) negative These tests were developed and their performance characteristics determined by [facility]. They may not have been cleared or approved by the [place]. Food and Drug Administration. The FDA has determined that such clearance or approval is not necessary. INTERPRETATION: B. Antrum biopsy: Negative for Helicobacter pylori organisms. AM:mague 02/06/2021
[2021-02-03 07:35] LABS: Bedside Glucose 118 mg/dL (70-110)
--- NOTE | 2021-02-03 07:54 | OP.EGD_ITS ---
Patient Name: Gladis Sprague Procedure Date: 02/03/2021 7:33 AM Date of : 1960 Age: 60 Procedure: Upper GI endoscopy Indications: Indigestion Providers: Cisco Krueger MD Medicines: See the Anesthesia note for documentation of the administered medications Complications: No immediate complications. Procedure: Pre-Anesthesia Assessment: - Prior to the procedure, a History and Physical was performed, and patient medications and allergies were reviewed. The patient's tolerance of previous anesthesia was also reviewed. The risks and benefits of the procedure and the sedation options and risks were discussed with the patient. All questions were answered, and informed consent was obtained. Prior Anticoagulants: The patient has taken no previous anticoagulant or antiplatelet agents. ASA Grade Assessment: III - A patient with severe systemic disease. After reviewing the risks and benefits, the patient was deemed in satisfactory condition to undergo the procedure. After obtaining informed consent, the endoscope was passed under direct vision. Throughout the procedure, the patient's blood pressure, pulse, and oxygen saturations were monitored continuously. The gastroscope was introduced through the mouth, and advanced to the second part of duodenum. The upper GI endoscopy was accomplished without difficulty. The patient tolerated the procedure well. Scope In: 7:43:24 AM Scope Out: 7:50:17 AM Total Procedure Duration Time 0 hours 6 minutes 53 seconds Findings: A small hiatal hernia was present. The mid esophagus was normal. Biopsies were taken with a cold forceps for histology. Esophagitis with no bleeding was found 38 cm from the incisors. Biopsies were taken with a cold forceps for histology. A medium amount of food (residue) was found in the gastric body. Diffuse mildly erythematous mucosa without bleeding was found in the gastric antrum. Biopsies were taken with a cold forceps for histology. A few sessile polyps with no bleeding and no stigmata of recent bleeding were found on the greater curvature of the stomach. The polyp was removed with a cold biopsy forceps. Resection and retrieval were complete. Diffuse mildly erythematous mucosa without active bleeding and with no stigmata of bleeding was found in the duodenal bulb. Biopsies were taken with a cold forceps for histology. Impression: - Small hiatal hernia. - Normal mid esophagus. Biopsied. - Reflux esophagitis. Biopsied. - A medium amount of food (residue) in the stomach. - Erythematous mucosa in the antrum. Biopsied. - A few gastric polyps. Resected and retrieved. - Erythematous duodenopathy. Biopsied. Recommendation: - Discharge patient to home. - Resume previous diet. - Continue present medications. - Telephone my office for pathology results in 1 week. Procedure Code(s): --- Professional --- 22806, Esophagogastroduodenoscopy, flexible, transoral; with biopsy, single or multiple Diagnosis Code(s): --- Professional --- K44.9, Diaphragmatic hernia without obstruction or gangrene K21.0, Gastro-esophageal reflux disease with esophagitis K31.89, Other diseases of stomach and duodenum K31.7, Polyp of stomach and duodenum K30, Functional dyspepsia CPT copyright 2017 [employer]. All rights reserved. The codes documented in this report are preliminary and upon court messenger review may be revised to meet current compliance requirements. Cisco Krueger MD 02/03/2021 7:54:44 AM This report has been signed electronically. Number of Addenda: 0 Note Initiated On: 02/03/2021 7:33 AM
--- NOTE | 2021-02-03 07:55 | OP.CCLET_ITS ---
02/03/2021 Dennys Serrano Re : Upper GI endoscopy procedure for Gladis Francois Zach This procedure was performed on Wednesday, February 03, 2021. My impressions and recommendations are as follows: Impressions : - Small hiatal hernia. - Normal mid esophagus. Biopsied. - Reflux esophagitis. Biopsied. - A medium amount of food (residue) in the stomach. - Erythematous mucosa in the antrum. Biopsied. - A few gastric polyps. Resected and retrieved. - Erythematous duodenopathy. Biopsied. Recommendations : - Discharge patient to home. - Resume previous diet. - Continue present medications. - Telephone my office for pathology results in 1 week. My findings are described in the full procedure note, which is enclosed. If I can be of further assistance, please feel free to contact me at Doctor phone number(s): Work: . Sincerely, Cisco Krueger MD 02/03/2021 7:54:44 AM This report has been signed electronically.
--- NOTE | 2021-02-03 08:17 | OP.CCLET_ITS ---
02/03/2021 Dennys Serrano Re : Colonoscopy procedure for Gladis Vilchisjessee Serrano This procedure was performed on Wednesday, February 03, 2021. My impressions and recommendations are as follows: Impressions : - Preparation of the colon was inadequate. - Hemorrhoids found on perianal exam. - Stool in the entire examined colon. Biopsied. Recommendations : - Discharge patient to home. - Resume previous diet. - Continue present medications. - Repeat colonoscopy in 1 week for surveillance. - Telephone my office for pathology results in 1 week. My findings are described in the full procedure note, which is enclosed. If I can be of further assistance, please feel free to contact me at Doctor phone number(s): Work: . Sincerely, Cisco Krueger MD 02/03/2021 8:16:37 AM This report has been signed electronically.
--- NOTE | 2021-02-03 08:17 | OP.COLON_ITS ---
Patient Name: Gladis Sprague Procedure Date: 02/03/2021 7:52 AM Date of : 1960 Age: 60 Procedure: Colonoscopy Indications: Chronic diarrhea Providers: Cisco Krueger MD Medicines: See the Anesthesia note for documentation of the administered medications Patient Profile: Last Colonoscopy: 2012. Complications: No immediate complications. Procedure: Pre-Anesthesia Assessment: - Prior to the procedure, a History and Physical was performed, and patient medications and allergies were reviewed. The patient's tolerance of previous anesthesia was also reviewed. The risks and benefits of the procedure and the sedation options and risks were discussed with the patient. All questions were answered, and informed consent was obtained. Prior Anticoagulants: The patient has taken no previous anticoagulant or antiplatelet agents. ASA Grade Assessment: III - A patient with severe systemic disease. After reviewing the risks and benefits, the patient was deemed in satisfactory condition to undergo the procedure. - Prior to the procedure, a History and Physical was performed, and patient medications and allergies were reviewed. The patient's tolerance of previous anesthesia was also reviewed. The risks and benefits of the procedure and the sedation options and risks were discussed with the patient. All questions were answered, and informed consent was obtained. Prior Anticoagulants: The patient has taken no previous anticoagulant or antiplatelet agents. ASA Grade Assessment: II - A patient with mild systemic disease. After reviewing the risks and benefits, the patient was deemed in satisfactory condition to undergo the procedure. After I obtained informed consent, the scope was passed under direct vision. Throughout the procedure, the patient's blood pressure, pulse, and oxygen saturations were monitored continuously. The adult colonoscope was introduced through the anus and advanced to the cecum, identified by appendiceal orifice and ileocecal valve. The colonoscopy was performed with difficulty due to inadequate bowel prep. The patient tolerated the procedure well. The quality of the bowel preparation was inadequate. The ileocecal valve was photographed. Scope In: 7:57:32 AM Scope Withdrawal Time 0 hours 5 minutes 0 seconds Scope Out: 8:09:56 AM Total Procedure Duration Time 0 hours 12 minutes 24 seconds Findings: Hemorrhoids were found on perianal exam. A large amount of stool was found in the entire colon, precluding visualization. Biopsies for histology were taken with a cold forceps from the entire colon for evaluation of microscopic colitis. Impression: - Preparation of the colon was inadequate. - Hemorrhoids found on perianal exam. - Stool in the entire examined colon. Biopsied. Recommendation: - Discharge patient to home. - Resume previous diet. - Continue present medications. - Repeat colonoscopy in 1 week for surveillance. - Telephone my office for pathology results in 1 week. Procedure Code(s): --- Professional --- 13495, Colonoscopy, flexible; with biopsy, single or multiple Diagnosis Code(s): --- Professional --- K64.9, Unspecified hemorrhoids K52.9, Noninfective gastroenteritis and colitis, unspecified CPT copyright 2017 [employer]. All rights reserved. The codes documented in this report are preliminary and upon workers compensation manager review may be revised to meet current compliance requirements. Cisco Krueger MD 02/03/2021 8:16:37 AM This report has been signed electronically. Number of Addenda: 0 Note Initiated On: 02/03/2021 7:52 AM
[2021-02-03 08:20] VITALS: BP 118/36; BP 150/88; PULSE 74; RESP 14; TEMP 35.6; O2SAT 97
[2021-02-03 08:25] VITALS: BP 130/77; BP 150/88; PULSE 78; RESP 16; O2SAT 97
[2021-02-03 08:31] VITALS: BP 144/83; BP 150/88; PULSE 83; RESP 16; O2SAT 98
[2021-02-03 08:35] VITALS: BP 150/88; BP 158/87; PULSE 86; RESP 16; TEMP 35.7; O2SAT 97
[2021-02-03 09:19] VITALS: BP 150/88
== END 2021-02-03 09:21 ==
LOC: EN 06:25 → AC 06:26
PROVIDERS: PCP Family Medicine; Referring Provider Family Medicine; Visit Provider Surgery
PROC: 0DJD8ZZ Inspection of Lower Intestinal Tract, Via Natural or Artificial Opening Endoscopic (ICD-10-PCS; CPT 45378; principal; 2021-02-03 07:25)
DX: K29.50 Unspecified chronic gastritis without bleeding (principal); K44.9 Diaphragmatic hernia without obstruction or gangrene; K21.00 Gastro-esophageal reflux disease with esophagitis, without bleeding; K31.89 Other diseases of stomach and duodenum; K31.7 Polyp of stomach and duodenum; K30 Functional dyspepsia; K64.9 Unspecified hemorrhoids; K52.9 Noninfective gastroenteritis and colitis, unspecified; Z86.010 Personal history of colon polyps; G89.4 Chronic pain syndrome; I10 Essential (primary) hypertension; E78.5 Hyperlipidemia, unspecified; E11.9 Type 2 diabetes mellitus without complications; Z90.49 Acquired absence of other specified parts of digestive tract; D64.9 Anemia, unspecified; K59.00 Constipation, unspecified; Z79.4 Long term (current) use of insulin; Z79.82 Long term (current) use of aspirin
CPT/HCPCS: 43239; 45380; 82962; 88305; 88313; 88342; J7120; J2405

== ENCOUNTER 2021-02-13 15:22 | Inpatient (IN) | payer MEDICARE, MEDICAID, SELFPAY ==
[2021-02-13 15:22] VITALS: BP 118/102; PULSE 89; RESP 18; TEMP 37.1; O2SAT 98; BMI 28.3
[2021-02-13 15:31] VITALS: BMI 30.3
--- NOTE | 2021-02-13 15:33 | ED.VIS.FALL ---
HPI HPI - Fall History of Present Illness Chief Complaint: Fall Informant: patient Narrative Narrative: 60-year-old female sustained a mechanical fall while trying to get a clock off the fireplace. She states that she injured her left hip. She was unable to get up but she was able to crawl to the door and let her dog back in. She denies any head injury. She denies any pain anywhere else that is out of the ordinary. EMS states that the leg appears rotated. She notes the pain seems more towards her groin. Patient is in pain management and takes tramadol and pregabalin. PFSH PFS Medical History Cardiology follow-up encounter Chronic pain syndrome Dietary restriction Essential hypertension Excessive bleeding Gastric reflux High cholesterol History of echocardiogram History of edema History of orthostatic hypotension History of stress test HLD (hyperlipidemia) Hx of orthostatic hypotension Injury of head and neck Insulin dependent diabetes mellitus Low iron Malnutrition Migraine headache Migraine without aura Non-smoker Post-concussion syndrome Syncope Type II diabetes mellitus Vertigo Vomiting Wears glasses Home Medications diltiazem HCl 180 mg PO DAILY 12/17/18 [History Last Taken 12/15/19] insulin glargine 20 units SUBCUT QHS 12/17/18 [History Last Taken 12/14/19] insulin lispro See Protocol SQ TIDCM 12/17/18 [History Last Taken 12/15/19] magnesium oxide 400 mg PO BID 12/17/18 [History Last Taken 12/15/19] ondansetron 4 mg PO Q6H PRN 12/17/18 [History Last Taken 1 Week Ago ~12/08/19] polyethylene glycol 3350 17 gram/dose oral powder 17 g PO DAILY PRN PRN 02/16/19 [History Last Taken 1 Week Ago ~12/08/19] pregabalin 50 mg capsule 50 mg PO TID 02/17/19 [History Last Taken 12/15/19] tramadol 50 mg PO BID 05/04/19 [History Last Taken 12/14/19] aspirin 81 mg PO DAILY@0800 12/15/19 [History Last Taken 12/14/19] atorvastatin 40 mg PO QHS 12/15/19 [History Last Taken 12/14/19] pantoprazole 40 mg PO DAILY 09/15/20 [History Last Taken 12/15/19] clonidine HCl 0.3 mg PO TID 30 Days #90 tab 12/19/19 [Rx Last Taken Unknown] insulin lispro 3 unit SUBCUT TIDCM insuln.pen 12/19/19 [Rx Last Taken Unknown] Allergy/AdvReac Type Severity Reaction Status Date / Time metformin AdvReac Diarrhea Verified 02/13/21 15:27 Family History Mother Hypertension Father Cancer lymphoma, leukemia Emphysema of lung Grandmother Diabetes Surgical History History of cholecystectomy History of esophagogastroduodenoscopy (EGD) History of mandibular surgery Hx of colonoscopy Social History Smoking Status: Never smoker alcohol intake: never substance use type: does not use ROS ROS ED Constitutional Constitutional ED: Denies chills or weight loss Eyes Eyes: Denies change in vision or diplopia ENT ENT ED: Denies ear pain, rhinorrhea or sore throat Cardiovascular Cardiovascular: Denies chest pain, orthopnea, palpitations or racing heartbeat Respiratory/Chest Respiratory/Chest: Denies cough, dyspnea or orthopnea Gastrointestinal Gastrointestinal: Denies abdominal pain, diarrhea, nausea or vomiting Genitourinary Genitourinary ED: Denies dysuria, hematuria or urinary frequency Musculoskeletal Musculoskeletal: Reports other Details: Left hip pain ; Denies arthralgias, back pain, myalgias or neck pain Integumentary Denies abscess or rash Neurologic Neurologic: Denies headache(s) or weakness Psychiatric Psychiatric: Denies anxiety, depression, suicidal ideation or suicidal thoughts Endocrine Endocrinology: Denies polydipsia, polyphagia or polyuria Allergic/Immunologic Allergic/Immunologic ED: Denies mouth swelling, tongue swelling or urticaria EXAM Physical Exam Const Vital Signs: 02/13/21 15:22 02/13/21 15:29 Temperature 98.7 F Temperature Source Oral Pulse Rate 89 Respiratory Rate 18 Respiratory Effort Normal Non-Labored Respiratory Depth Normal Respiratory Pattern Normal Blood Pressure 118/102 H Blood Pressure Mean 107 Pulse Ox 98 Oxygen Delivery Method Room Air Positive well nourished, well developed and obese General Appearance ED: well developed Nutritional Appearance: obese HEENT Reports normocephalic, head/scalp atraumatic, TM's clear and moist mucous membranes HEENT Narrative: Oral pharyngeal exam appears normal atraumatic; Negative for hematoma Tympanic Membrane ED: Yes TM's clear Eyes PERRL and EOMs intact bilaterally Neck full ROM, no lymphadenopathy, supple and no JVD Resp normal respiratory effort and clear to auscultation bilaterally Cardio regular rate, regular rhythm and no murmurs GI normal to inspection, nondistended, normoactive bowel sounds and non-tender Palpation: soft Back/Spine no CVA tenderness and normal ROM Extremity Extremity Narrative: The left leg appears rotated and slightly shortened. She has pain with movement of the hip and with palpation. Patient appears neurovascularly intact. Pain with logroll General Extremety ED: Negative for edema General Extremity: Negative for edema Neuro oriented x3 and CN's II-XII intact bilaterally Sensorium / Orientation: alert Motor Exam: strength 5/5 throughout Psych mental status grossly normal Mood & Affect: Negative for depressed or tearful Skin no rashes or lesions noted and no wounds Lesions: no lesions Rashes: no rashes MDM MDM MDM Narrative Medical decision making narrative: Patient received morphine and Zofran. My interpretation of the chest x-ray is no acute process. My interpretation of plain films of the left hip and pelvis is a acute comminuted intertrochanteric fracture. White count 9.1 with a hemoglobin of 9.3. Patient has a history of chronic anemia. Creatinine 1.39. Coags were obtained and normal. She was typed and screened. I spoke with Dr. King from orthopedics who will consult and I will speak with the hospitalist regarding admission Lab Data Attestation: I reviewed the patient's lab results. Labs: Laboratory Results - last 24 hr 02/13/21 02/13/21 02/13/21 16:34 16:34 16:34 WBC 9.1 RBC 3.27 L Hgb 9.3 L Hct 28.3 L MCV 86.5 MCH 28.4 MCHC 32.9 RDW Std Deviation 42.2 RDW Coeff of Chris 13.3 Plt Count 226 MPV 10.4 Immature Gran % (Auto) 0.300 Neut % (Auto) 79.4 H Lymph % (Auto) 12.8 L Harmon % (Auto) 4.0 Eos % (Auto) 3.2 Baso % (Auto) 0.3 Absolute Neuts (auto) 7.2 Absolute Lymphs (auto) 1.16 Nucleated RBC % 0 PT 13.7 INR 1.1 APTT 32.4 Sodium 138 Potassium 5.1 Chloride 106 Carbon Dioxide 28.0 Anion Gap 4 L BUN 23 H Creatinine 1.39 H Estim Creat Clear Calc 39.70 Est GFR (MDRD) Af Amer 50 L Est GFR (MDRD) Non-Af 41 L BUN/Creatinine Ratio 16.5 Glucose 242 H Calcium 9.0 Total Bilirubin 0.40 AST 37 ALT 38 Alkaline Phosphatase 190 H Total Protein 6.5 Albumin 2.8 L Globulin 3.7 Albumin/Globulin Ratio 0.8 L Radiography Diagnostic Testing: Clinical Impression(s) from Imaging Studies Chest X-Ray 02/13/21 16:00 IMPRESSION: There are no acute findings. Electronically Signed: Yanick Raines MD at 16:19 EST , Service support , Hip/Pelvis X-Ray 02/13/21 16:00 IMPRESSION: Left comminuted intertrochanteric fracture. Electronically Signed: Yanick Raines MD at 16:22 EST , Service support , EKG Initial EKG: Attestation: I personally reviewed and interpreted this EKG as follows: Comments: Normal sinus rhythm ventricular rate of 91 bpm Discharge Plan Dx/Rx/DC Orders Clinical Impression: Closed intertrochanteric fracture of left hip, Type II diabetes mellitus, Chronic anemia, Fall Disposition Disposition: Acute Care [facility]
[2021-02-13] MEDS: Ondansetron 4 MG/2 ML Vial IV (15:48)
[2021-02-13] MEDS: Morphine 4 MG/ML Syringe IV (15:48)
--- NOTE | 2021-02-13 16:00 | RAD_ITS ---
STUDY: X-RAY - PELVIS AND LEFT HIP REASON FOR EXAM: Female, 60 years old. Technologist Notes fall, left hip pain TECHNIQUE: XR Hip Unilateral with Pelvis when performed; 2-3 Views COMPARISON: None. FINDINGS: There is a non-specific bowel gas pattern. Normal visualized soft tissue structures. Degenerative changes in the lumbar spine. Normal bilateral iliac wings, sacroiliac joints and visualized sacrum. Normal bilateral superior and inferior pubic rami. Normal pubic symphysis. Normal bilateral ischial tuberosities. Left comminuted intertrochanteric fracture. There is impaction. Normal hip joint. RAD/HIP, UNI W/ Pelvis 2-3 Views IMPRESSION: Left comminuted intertrochanteric fracture. Electronically Signed: Yanick Raines MD at 16:22 EST , Service support ,
--- NOTE | 2021-02-13 16:00 | RAD_ITS ---
STUDY: XR Chest 1 View 02/13/2021 4:02 PM REASON FOR EXAM: Female, 60 years old. CHEST PAIN trauma COMPARISON: 11/07/2019 TECHNIQUE: XR Chest 1 View FINDINGS: There is no demonstrated pleural abnormality. Enlarged heart size. Normal mediastinum. Normal emily. Prominent appearing increased interstitial lung markings. Normal visualized pulmonary arteries. There is atherosclerotic calcification of the aortic arch with tortuosity. There are diffuse degenerative changes of the visualized thoracic spine. There is degenerative osteoarthritis of the bilateral shoulders. There is no demonstrated abnormality of the visualized soft tissue structures of the upper abdomen. RAD/Chest 1 View IMPRESSION: There are no acute findings. Electronically Signed: Yanick Raines MD at 16:19 EST , Service support ,
--- NOTE | 2021-02-13 16:00 | EKG12_ITS ---
Test Reason : Blood Pressure : / mmHG Vent. Rate : 091 BPM Atrial Rate : 091 BPM P-R Int : 162 ms QRS Dur : 088 ms QT Int : 360 ms P-R-T Axes : 077 045 052 degrees QTc Int : 442 ms Normal sinus rhythm Normal ECG Confirmed by YUMIKO AMEZCUA, TOMAS ([id number]), news video editor RAFI DOMINGO ([id number]) on 02/15/2021 9:40:09 AM Referred By: Confirmed By:TOMAS CALDERON MD
[2021-02-13 16:44] LABS: Absolute Lymphocyte Count 1.16 X10^3/uL (0.83-4.51); Absolute Neutrophil Count 7.2 X10^3/uL (2.0-7.7); Basophil# 0.03 X10^3/uL; Basophil% 0.3 % (0-1); Eosinophil# 0.29 X10^3/uL; Eosinophils% 3.2 % (0-5); Hematocrit 28.3 % (37-47); Hemoglobin 9.3 g/dL (12.0-15.0); Lymphocyte # 1.16 X10^3/ul (0.83-4.51); Lymphocyte % 12.8 % (19-41); Mean Corp Hgb Conc 32.9 g/dL (32-36); Mean Corpuscular Hgb 28.4 pg (27.0-32.0); Mean Corpuscular Volume 86.5 fL (81-99); Mean Platelet Vol. 10.4 fl (6.2-12.0); Monocyte# 0.36 X10^3/uL; NRBC Flagged by Analyzer 0 % (0-5); Neutrophil # 7.22 X10^3/uL (2.7-7.7); Neutrophil % 79.4 % (47-70); Platelet Count 226 K/mm3 (150-450); RBC Distribution Width CV 13.3 % (11.6-14.6); RBC Distribution Width SD 42.2 fl (35.1-43.9); Red Blood Count 3.27 M/mm3 (4.2-5.4); White Blood Count 9.1 K/mm3 (4.4-11.0)
[2021-02-13 16:57] LABS: International Normalized Ratio 1.1; Prothrombin Time (Protime)PT. 13.7 SECONDS (11.7-14.9)
[2021-02-13 16:58] LABS: Partial Thromboplast Time 32.4 Seconds (24.1-36.2)
[2021-02-13 17:05] LABS: ALB/GLOB Ratio 0.8 RATIO (0.9-2.4); AST(SGOT) 37 U/L (15-37); Alanine Aminotransfer ALT/SGPT 38 U/L (13-56); Albumin, Serum 2.8 g/dL (3.2-5.0); Alkaline Phosphatase 190 U/L (45-117); Anion Gap 4 (5-15); BUN 23 mg/dL (7-18); BUN/Creat Ratio 16.5 RATIO (10-20); Chloride 106 mmol/L (98-107); Creatinine, Serum 1.39 mg/dL (0.55-1.02); EST Glomerular Filtration Rate 41 mL/min (>60); Est Glom Filt Rate - Afr Amer 50 mL/min (>60); Globulin 3.7 g/dL (2.2-4.2); Glucose 242 mg/dL (74-106); Potassium 5.1 mmol/L (3.5-5.1); Protein, Total 6.5 g/dL (6.4-8.2); Sodium Level 138 mmol/L (136-145)
[2021-02-13 17:33] VITALS: O2SAT 95
--- NOTE | 2021-02-13 17:38 | HP.PCM.HOS_ITS ---
Documented by User: Samm SALAZAR 02/13/21 17:54 HPI - General HPI Narrative LAYNE VINCENT is a 60-year-old female who presents to the ED at [facility] on 02/13/2021 with a chief complaint of left hip pain status post fall. Patient states that earlier this afternoon she was letting her dog out to use the restroom, when she reentered the home to turn off an alarm she heard going off in her bedroom. Patient reports losing her balance and slipping on the carpeted floor. Patient denies any loss of consciousness or potentially hitting her head. Patient reports that she could not stand or walk after her fall and that she had to crawl back to the door to let her dog back in. Patient reports being fairly mobile and independent at home utilizing her walker, although does endorse some difficulty getting up and down stairs. Patient does not complain of nor does she display any focal neurological deficits. Vital signs in the ED are temperature of 98.7 ?F, BP of 118/102, HR of 89, RR of 18 and is currently satting 98% on room air. CBC does not demonstrate a leukocytosis and hemoglobin is at patient's baseline of 9.3. BMP does not demonstrate any electrolyte abnormalities although creatinine is elevated at 1.3. Chest x-ray demonstrates no acute cardiopulmonary process or evidence of fracture. X-ray of the hip/pelvis demonstrates left comminuted intertrochanteric fracture. Rapid Covid is negative. [facility] Medical History Cardiology follow-up encounter Chronic pain syndrome Dietary restriction Essential hypertension Excessive bleeding Gastric reflux High cholesterol History of echocardiogram History of edema History of orthostatic hypotension History of stress test HLD (hyperlipidemia) Hx of orthostatic hypotension Injury of head and neck Insulin dependent diabetes mellitus Low iron Malnutrition Migraine headache Migraine without aura Non-smoker Post-concussion syndrome Syncope Type II diabetes mellitus Vertigo Vomiting Wears glasses Home Medications diltiazem HCl 180 mg PO DAILY 12/17/18 [History Last Taken 02/13/21] insulin glargine 20 units SUBCUT QHS 12/17/18 [History Last Taken 02/12/21] insulin lispro See Protocol SQ TIDCM 12/17/18 [History Last Taken 02/13/21] magnesium oxide 400 mg PO BID 12/17/18 [History Last Taken 02/13/21] ondansetron 4 mg PO Q6H PRN 12/17/18 [History Last Taken 1 Week Ago ~12/08/19] polyethylene glycol 3350 17 gram/dose oral powder 17 g PO DAILY PRN PRN 02/16/19 [History Last Taken 1 Week Ago ~12/08/19] tramadol 50 mg PO BID 05/04/19 [History Last Taken 02/12/21] aspirin 81 mg PO DAILY@0800 12/15/19 [History Last Taken 02/12/21] atorvastatin 40 mg PO QHS 12/15/19 [History Last Taken 02/12/21] pantoprazole 40 mg PO DAILY 12/15/19 [History Last Taken 02/13/21] clonidine HCl 0.3 mg PO TID 30 Days #90 tab 12/19/19 [Rx Last Taken 02/13/21] insulin lispro 3 unit SUBCUT TIDCM insuln.pen 12/19/19 [Rx Last Taken 02/13/21] pregabalin 75 mg PO BID 02/13/21 [History Last Taken 02/13/21] Allergy/AdvReac Type Severity Reaction Status Date / Time metformin AdvReac Diarrhea Verified 02/13/21 15:27 Family History Mother Hypertension Father Cancer lymphoma, leukemia Emphysema of lung Grandmother Diabetes Surgical History History of cholecystectomy History of esophagogastroduodenoscopy (EGD) History of mandibular surgery Hx of colonoscopy Social History Smoking Status: Never smoker alcohol intake: never substance use type: does not use ROS Review of Systems ROS Unobtainable: Denies due to encephalopathy, due to endotracheal tube, due to mental condition, due to mental status or other Constitutional Constitutional: Denies anorexia, change in weight, chills, fatigue, fever(s), malaise, night sweats, weakness or other Eyes Eyes: Denies blurry vision, change in eye color, change in vision, discharge from eye(s), double vision, erythema, eye pain, loss of vision or other ENT HEENT: Denies abnormal hearing, dysphagia, ear pain, epistaxis, headache(s), hearing loss, nasal congestion, nasal discharge, post nasal drip, sinus pressure, sore throat or other Cardiovascular Cardiovascular: Denies chest pain, claudication, dyspnea on exertion, edema, lightheadedness, orthopnea, palpitations, paroxysmal nocturnal dyspnea, rapid heart rate, syncope or other Respiratory/Chest Respiratory/Chest: Denies cough, dyspnea, excessive phlegm production, hemoptysis, productive cough, shortness of breath at rest, shortness of breath with exertion, wheezing or other Gastrointestinal Gastrointestinal: Denies abdominal pain, coffee ground emesis, constipation, diarrhea, dyspepsia, hematemesis, hematochezia, loose stools, melena, nausea, vomiting or other Genitourinary Genitourinary: Denies burning urination, difficulty urinating, dysuria, hematuria, nocturia, urinary frequency, urinary hesitancy, urinary incontinence, urinary urgency or other Musculoskeletal Musculoskeletal: Reports other Details: Endorses pain about the left hip and left lower extremity. ; Denies arthralgias, back pain, joint pain, joint stiffness, joint swelling, myalgias or neck pain Neurologic Neurologic: Denies abnormal gait, abnormal speech, confusion, disequilibrium, dizziness, focal weakness, headache(s), numbness, paresthesias, seizure-like activity, seizures, syncope, tingling, tremor(s) or other Psychiatric Psychiatric: Denies anxiety, depression, homicidal ideation, suicidal ideation or other Endocrine Endocrinology: Denies change in body appearance, cold intolerance, excessive sweating, heat intolerance, polydipsia, polyuria or other Hematologic/Lymphatic Hematologic/Lymphatic: Denies anemia, easy bleeding, easy bruising, lymphadenopathy or other Allergic/Immunologic Allergic/Immunologic: Denies rhinitis, hives, eczemia, asthma or other Vital Signs Vital Signs Vital Signs: 02/13/21 15:22 02/13/21 15:29 02/13/21 17:33 Temperature 98.7 F Temperature Source Oral Pulse Rate 89 Respiratory Rate 18 Respiratory Effort Normal Non-Labored Respiratory Depth Normal Respiratory Pattern Normal Blood Pressure 118/102 H Blood Pressure Mean 107 Pulse Ox 98 95 Oxygen Delivery Method Room Air Weight Weight: 182 lb 1.629 oz Body Mass Index (BMI) 30.3 Physical Exam Const alert and oriented x3 General Appearance: cooperative HEENT normocephalic, head/scalp atraumatic and hearing grossly normal bilaterally Eyes PERRL, EOMs intact bilaterally and conjunctivae normal Neck no lymphadenopathy, supple and no JVD Resp normal respiratory effort, no retractions, no use of accessory muscles and clear to auscultation bilaterally Cardio regular rate, regular rhythm, no murmurs and no JVD GI normal to inspection, nondistended, normoactive bowel sounds, soft to palpation and non-tender Extremity Extremity Narrative: No bruising or obvious deformity about the left hip although left hip and left lower extremity are tender to palpation. Skin no rashes or lesions noted, no wounds, skin turgor normal and no jaundice Neuro CN's II-XII intact bilaterally Psych affect normal Results Lab / Micro Data Result Diagrams: 02/13/21 16:34 02/13/21 16:34 Labs: Laboratory Results - last 24 hr 02/13/21 16:34: WBC 9.1, RBC 3.27 L, Hgb 9.3 L, Hct 28.3 L, MCV 86.5, MCH 28.4, MCHC 32.9, RDW Std Deviation 42.2, RDW Coeff of Chris 13.3, Plt Count 226, MPV 10.4, Immature Gran % (Auto) 0.300, Neut % (Auto) 79.4 H, Lymph % (Auto) 12.8 L, [place] % (Auto) 4.0, Eos % (Auto) 3.2, Baso % (Auto) 0.3, Absolute Neuts (auto) 7.2, Absolute Lymphs (auto) 1.16, Nucleated RBC % 0 02/13/21 16:34: PT 13.7, INR 1.1, APTT 32.4 02/13/21 16:34: Sodium 138, Potassium 5.1, Chloride 106, Carbon Dioxide 28.0, Anion Gap 4 L, BUN 23 H, Creatinine 1.39 H, Estim Creat Clear Calc 39.70, Est GFR (MDRD) Af Amer 50 L, Est GFR (MDRD) Non-Af 41 L, BUN/Creatinine Ratio 16.5, Glucose 242 H, Calcium 9.0, Total Bilirubin 0.40, AST 37, ALT 38, Alkaline Phosphatase 190 H, Total Protein 6.5, Albumin 2.8 L, Globulin 3.7, Albumin/Globulin Ratio 0.8 L 02/13/21 16:34: Blood Type A POSITIVE, Antibody Screen NEGATIVE Micro: Microbiology 02/13/21 16:12 Nasal Secretion SARS-CoV-2 Antigen (Rapid) - Final Radiology Impression Chest X-Ray 02/13/21 16:00 IMPRESSION: There are no acute findings. Electronically Signed: Yanick Raines MD at 16:19 EST , Service support , Hip/Pelvis X-Ray 02/13/21 16:00 IMPRESSION: Left comminuted intertrochanteric fracture. Electronically Signed: Yanick Raines MD at 16:22 EST , Service support , Assessment & Plan Assessment/Plan (1) Closed intertrochanteric fracture of left hip: (2) Fall: PLAN: Patient is a 60-year-old female who presents to the ED [facility] on 02/13/2021 with a chief complaint of left hip pain status post fall. Patient will be admitted for orthopedic evaluation and potential surgical intervention. 1) left intertrochanteric hip fracture status post mechanical fall Patient reports falling on a carpeted floor while losing her balance inside her home. Denies hitting her head or losing consciousness. Is painful about the left hip, although does not display any obvious deformity or bruising. Patient does not complain of nor did she demonstrate any focal neurological deficits. Hip/pelvic x-ray on admission demonstrated intertrochanteric comminuted left hip fracture. Chest x-ray was without any acute findings. Patient has a average surgical risk based NSQUIP surgical risk calculator. Plan; admit to MedSurg, Howard catheter ordered, heart healthy diet ordered, fall risk ordered PT/OT eval ordered, CBC/BMP in a.m., UA ordered, as needed medications ordered. 2) HTN Stable, continue home clonidine. 3) DM2 Continue home insulin regimen, Accu-Cheks with sliding scale insulin ordered. 4) hyperlipidemia Continue statin. CODE STATUS: Full code DVT prophylaxis - Heparin Patient seen by Samm Bermudez PA-C, under the supervision of Dr. Matos. Documented by User: Dr. Go Matos MD 02/13/21 18:10 HPI - General General Date of Admission: 02/13/21 Date of Service: 02/13/21 Chief Complaint: Fall with left hip fracture HPI Narrative This is a 60-year-old female with multiple comorbidities including diabetes mellitus type 2 on insulin, peripheral neuropathy left heel osteomyelitis which has healed came to ER after she fell down while trying to walk the dog. She is on Rollator because of history of poor balance and equilibrium. She denies hitting the head or loss of consciousness. Patient has history of orthostatic hypotension and blood pressure is labile. EMS blood pressure is high 1-6/100 but got improved in 120s in ER. Twelve- lead EKG shows normal sinus rhythm 91 bpm. QTc 442 ms. Left hip and pelvis x- ray shows left commuted intertrochanteric fracture. Patient normally does her house chores on Rollator but does not go on the stairs. ER physician talked to Dr. King, orthopedic surgery continue to surgery tomorrow. Labs reviewed. Glucose in BMP high. [facility] Medical History Cardiology follow-up encounter Chronic pain syndrome Dietary restriction Essential hypertension Excessive bleeding Gastric reflux High cholesterol History of echocardiogram History of edema History of orthostatic hypotension History of stress test HLD (hyperlipidemia) Hx of orthostatic hypotension Injury of head and neck Insulin dependent diabetes mellitus Low iron Malnutrition Migraine headache Migraine without aura Non-smoker Post-concussion syndrome Syncope Type II diabetes mellitus Vertigo Vomiting Wears glasses Home Medications diltiazem HCl 180 mg PO DAILY 12/17/18 [History Last Taken 02/13/21] insulin glargine 20 units SUBCUT QHS 12/17/18 [History Last Taken 02/12/21] insulin lispro See Protocol SQ TIDCM 12/17/18 [History Last Taken 02/13/21] magnesium oxide 400 mg PO BID 12/17/18 [History Last Taken 02/13/21] ondansetron 4 mg PO Q6H PRN 12/17/18 [History Last Taken 1 Week Ago ~12/08/19] polyethylene glycol 3350 17 gram/dose oral powder 17 g PO DAILY PRN PRN 02/16/19 [History Last Taken 1 Week Ago ~12/08/19] tramadol 50 mg PO BID 05/04/19 [History Last Taken 02/12/21] aspirin 81 mg PO DAILY@0800 12/15/19 [History Last Taken 02/12/21] atorvastatin 40 mg PO QHS 12/15/19 [History Last Taken 02/12/21] pantoprazole 40 mg PO DAILY 12/15/19 [History Last Taken 02/13/21] clonidine HCl 0.3 mg PO TID 30 Days #90 tab 12/19/19 [Rx Last Taken 02/13/21] insulin lispro 3 unit SUBCUT TIDCM insuln.pen 12/19/19 [Rx Last Taken 02/13/21] pregabalin 75 mg PO BID 02/13/21 [History Last Taken 02/13/21] Allergy/AdvReac Type Severity Reaction Status Date / Time metformin AdvReac Diarrhea Verified 02/13/21 15:27 Family History Mother Hypertension Father Cancer lymphoma, leukemia Emphysema of lung Grandmother Diabetes Surgical History History of cholecystectomy History of esophagogastroduodenoscopy (EGD) History of mandibular surgery Hx of colonoscopy Social History Smoking Status: Never smoker alcohol intake: never substance use type: does not use Physical Exam Narrative General: Alert, Oriented x3, Cooperative HEENT: Atraumatic, PERRLA, EOMI, Normocephalic Oral: No Gingival or Mucosal Lesions/ Ulcerations Neck: Supple, No JVD, Negative Carotid Bruits Lungs: Air entry diminished in bilateral lung bases. No crepitation/rhonchi Cardiovascular: Regular rate, Regular Rhythm, Normal S1, Normal S2, No murmurs Abdomen: Bowel Sounds Present, Soft, Non Tender, Non-Distended : Urine retention after fracture. Denies burning micturition/lower urinary tract symptoms. Extremities: No edema, Capillary Refill Less than 3 Seconds Skin: No rashes, No breakdown Musculoskeletal: Left lower extremity externally rotated and shortened. Tendern ess over left hip and groin area. Neurological: Cranial nerves II-XII grossly intact, DTR 2+/4 Psych/Mental Status: Normal Affect, Appropriate. Results Lab / Micro Data Result Diagrams: 02/13/21 16:34 02/13/21 16:34 Assessment & Plan Assessment/Plan (1) Closed intertrochanteric fracture of left hip: PLAN: This patient was seen in conjunction with MARIE Longo. I have independently interviewed and examined the patient and reviewed pertinent history, examination findings, laboratory and plan of management. I have reviewed the note and agree with the documented findings with the few additional points. In brief, patient is admitted for acute left comminuted intertrochanteric fracture, pathological as she fell from standing height. Orthopedic surgeon Dr. King is consulted. NSQIP surgical risk related and she is on average risk for serious complication, below average for pneumonia and cardiac complication. Above average for any complication or surgical site infection. Most probably she will require discharge to [facility]. BUN/creatinine mildly elevated. Diabetes is not well controlled with glucose 242. Accu-Chek insulin coverage block sliding scale along with scheduled Lantus and short-acting prandial insulin. A1c tomorrow a.m. Incentive spirometry ordered. Patient had 2D echo in October 2019 for hypotension. Reported EF 65%, RVSP 33 mmHg. No evidence for diastolic dysfunction. IV fluid normal saline ordered. She has labile hypertension, orthostatic hypotension with chronic dizziness on standing up. Patient will need outpatient further evaluation, JAMI mcpherson. Other comorbidities as mentioned above which include history of left heel o steomyelitis with some mild scar tissue there. No tenderness left heel. Living will/advanced directive/end of life care: Patient does not have living will or advanced directive. After discussion of benefits/risks procedures involved with full code, DNR CC arrest and DNR CC, the patient opted for full code. Patient does want artificial life support including intubation, tube feed, ventilator and/chest compression, central venous catheter, vasopressor and DC shock if needed Total time spent in [id number] encounter in discussion of advanced directive 16 minutes. I have discussed my assessment with MARIE Longo and orders have been reviewed. Clinical Impression(s) from Imaging Studies Chest X-Ray 02/13/21 16:00 IMPRESSION: There are no acute findings. Hip/Pelvis X-Ray 02/13/21 16:00 IMPRESSION: Left comminuted intertrochanteric fracture. Charges/Coding Visit Charges Inpatient E&M: 71584 Init Hosp L3 Procedures Hospitalists Procedures: 13084 Advncd Care Plan 30 Min
[2021-02-13 17:53] VITALS: BP 118/102; PULSE 89; RESP 18; TEMP 37.1; O2SAT 95
[2021-02-13 18:22] VITALS: BMI 29.1
[2021-02-13 18:29] VITALS: BP 181/83; PULSE 99; RESP 18; TEMP 36.7; O2SAT 97
--- NOTE | 2021-02-13 18:58 | CONS.ORTHO ---
HPI Consult Data Date of Consult: 02/13/21 HPI Narrative HPI Narrative: Requesting provider: Dr. Go Matos LAYNE VINCENT, is a 60 F who presents after a fall onto her left side when she was letting her dog out to use the restroom. She states she heard her boyfriend's alarm going off in the bedroom and wanted to turn it off. She lost her balance and slipped on the floor and landing on her left side. Denies any loss of consciousness. Denies any head injury or or neck pain. Denies antecedent hip or groin pain. Patient is a household ambulator with a Rollator which she states she uses due to orthostatic hypotension. Denies any other associated injuries. Patient lives at home with her boyfriend. Patient was brought to [facility] emergency department after EMS was notified. X-rays in the ED revealed a left intertrochanteric proximal femur fracture. She was admitted under the care of the hospitalist. I was consulted from the emergency department. Denies any numbness or tingling. [facility] Medical History Cardiology follow-up encounter Chronic pain syndrome Dietary restriction Essential hypertension Excessive bleeding Gastric reflux High cholesterol History of echocardiogram History of edema History of orthostatic hypotension History of stress test HLD (hyperlipidemia) Hx of orthostatic hypotension Injury of head and neck Insulin dependent diabetes mellitus Low iron Malnutrition Migraine headache Migraine without aura Non-smoker Post-concussion syndrome Syncope Type II diabetes mellitus Vertigo Vomiting Wears glasses Home Medications diltiazem HCl 180 mg PO DAILY 12/17/18 [History Last Taken 02/13/21] insulin glargine 20 units SUBCUT QHS 12/17/18 [History Last Taken 02/12/21] insulin lispro See Protocol SQ TIDCM 12/17/18 [History Last Taken 02/13/21] magnesium oxide 400 mg PO BID 12/17/18 [History Last Taken 02/13/21] ondansetron 4 mg PO Q6H PRN 12/17/18 [History Last Taken 1 Week Ago ~12/08/19] polyethylene glycol 3350 17 gram/dose oral powder 17 g PO DAILY PRN PRN 02/16/19 [History Last Taken 1 Week Ago ~12/08/19] tramadol 50 mg PO BID 05/04/19 [History Last Taken 02/12/21] aspirin 81 mg PO DAILY@0800 12/15/19 [History Last Taken 02/12/21] atorvastatin 40 mg PO QHS 12/15/19 [History Last Taken 02/12/21] pantoprazole 40 mg PO DAILY 12/15/19 [History Last Taken 02/13/21] clonidine HCl 0.3 mg PO TID 30 Days #90 tab 12/19/19 [Rx Last Taken 02/13/21] insulin lispro 3 unit SUBCUT TIDCM insuln.pen 12/19/19 [Rx Last Taken 02/13/21] pregabalin 75 mg PO BID 02/13/21 [History Last Taken 02/13/21] Allergy/AdvReac Type Severity Reaction Status Date / Time metformin AdvReac Diarrhea Verified 02/13/21 15:27 Family History Mother Hypertension Father Cancer lymphoma, leukemia Emphysema of lung Grandmother Diabetes Surgical History History of cholecystectomy History of esophagogastroduodenoscopy (EGD) History of mandibular surgery Hx of colonoscopy Social History Smoking Status: Never smoker alcohol intake: never substance use type: does not use ROS ROS Narrative 10 point review of systems obtained, negative unless otherwise noted in HPI. Vital Signs Vital Signs Vital Signs: 02/13/21 15:22 02/13/21 15:29 02/13/21 17:33 Temperature 98.7 F Temperature Source Oral Pulse Rate 89 Respiratory Rate 18 Respiratory Effort Normal Non-Labored Respiratory Depth Normal Respiratory Pattern Normal Blood Pressure 118/102 H Blood Pressure Mean 107 Blood Pressure Source Blood Pressure Position Blood Pressure Location Pulse Ox 98 95 Oxygen Delivery Method Room Air 02/13/21 17:53 02/13/21 18:29 Temperature 98.7 F 98.1 F Temperature Source Oral Oral Pulse Rate 89 99 Respiratory Rate 18 18 Respiratory Effort Respiratory Depth Respiratory Pattern Blood Pressure 118/102 H 181/83 H Blood Pressure Mean 107 115 Blood Pressure Source Monitor Blood Pressure Position Semi-Fowlers Blood Pressure Location Right Arm Pulse Ox 95 97 Oxygen Delivery Method Room Air Room Air Weight Weight: 175 lb 0.752 oz Body Mass Index (BMI) 29.1 Physical Exam Narrative General -A&Ox3, NAD, appears stated age. Vital signs stable, afebrile. Respiratory -normal work of breathing, no intercostal retractions. CV -pulses regular, brisk capillary refill ?4 limbs. Abdomen-soft, nontender, nondistended. No guarding, rigidity, rebound tenderness. Musculoskeletal/neurologic -full range of motion nontender throughout bilateral upper extremities, right lower extremity with full sensation and strength in all dermatomes and myotomes. No midline cervical tenderness. Left lower extremity-no obvious deformity. Pain with logroll of the left lower extremity. Nontender throughout the left knee femoral shaft, tibial shaft and left foot/ankle. Brisk capillary refill. Sensation intact light touch L3-S1 dermatomes. DF, PF, EHL intact. DP, PT 2+. Pelvis is stable, nontender. Skin is intact without lacerations, abrasions. No ecchymosis noted. Lab / Micro Data Result Diagrams: 02/13/21 16:34 02/13/21 16:34 Labs: Laboratory Results - last 24 hr 02/13/21 16:34: WBC 9.1, RBC 3.27 L, Hgb 9.3 L, Hct 28.3 L, MCV 86.5, MCH 28.4, MCHC 32.9, RDW Std Deviation 42.2, RDW Coeff of Chris 13.3, Plt Count 226, MPV 10.4, Immature Gran % (Auto) 0.300, Neut % (Auto) 79.4 H, Lymph % (Auto) 12.8 L, [place] % (Auto) 4.0, Eos % (Auto) 3.2, Baso % (Auto) 0.3, Absolute Neuts (auto) 7.2, Absolute Lymphs (auto) 1.16, Nucleated RBC % 0 02/13/21 16:34: PT 13.7, INR 1.1, APTT 32.4 02/13/21 16:34: Sodium 138, Potassium 5.1, Chloride 106, Carbon Dioxide 28.0, Anion Gap 4 L, BUN 23 H, Creatinine 1.39 H, Estim Creat Clear Calc 39.70, Est GFR (MDRD) Af Amer 50 L, Est GFR (MDRD) Non-Af 41 L, BUN/Creatinine Ratio 16.5, Glucose 242 H, Calcium 9.0, Total Bilirubin 0.40, AST 37, ALT 38, Alkaline Phosphatase 190 H, Total Protein 6.5, Albumin 2.8 L, Globulin 3.7, Albumin/Globulin Ratio 0.8 L 02/13/21 16:34: Blood Type A POSITIVE, Antibody Screen NEGATIVE Micro: Microbiology 02/13/21 16:12 Nasal Secretion SARS-CoV-2 Antigen (Rapid) - Final Radiology Impression Chest X-Ray 02/13/21 16:00 IMPRESSION: There are no acute findings. Electronically Signed: Yanick Raines MD at 16:19 EST , Service support , Hip/Pelvis X-Ray 02/13/21 16:00 IMPRESSION: Left comminuted intertrochanteric fracture. Electronically Signed: Yanick Raines MD at 16:22 EST , Service support , Assessment & Plan Assessment/Plan (1) Closed intertrochanteric fracture of left hip: PLAN: Patient sustained a left comminuted intertrochanteric proximal femur fracture. -Closed, neurovascularly intact -Isolated injury -Recommending surgical intervention in the form of left femur cephalomedullary nailing -I discussed the procedure-its risks, benefits and alternative. Risks include but are not limited to bleeding, infection, loss of life or limb, risk of anesthesia, persistent pain or disability, need for additional surgery, nonunion, malunion, failure of orthopedic hardware, neurovascular injury, DVT or PE. Patient expressed understanding these risks and wished proceed with surgery. -Maintenance IV fluids, clear liquid diet after midnight n.p.o. at 4 hours prior to surgery -Type and screen -2 g Ancef on-call to the OR -Bedrest, heel protectors -Plan to proceed with surgery tomorrow 02/14/2021 Thank you for this consultation.
--- NOTE | 2021-02-13 19:07 | NURSING ---
rechecked BP. still elevated at 178/80. Dr King in to see patient and will order pain medication.
[2021-02-13 19:35] LABS: Phosphorus 3.8 mg/dL (2.5-4.9)
[2021-02-13] MEDS: Ondansetron ODT 4 MG Tablet PO (19:47)
[2021-02-13] MEDS: 0.9% Normal Saline 1,000 ML 75 ML IV (19:51)
[2021-02-13] MEDS: Cefazolin 2 GM in 0.9% Normal Saline 100 ML IV (19:52)
--- NOTE | 2021-02-13 20:03 | PCS.PANDOC ---
PANDEMIC DOCUMENTATION INITIATED: Date: 02/13/2021 Time: 190
[2021-02-13] MEDS: Morphine 2 MG/ML Syringe IV (20:14)
[2021-02-13] MEDS: 0.9% Saline Lock 10 ML Syringe IV (20:14)
[2021-02-13 21:53] VITALS: BP 178/71; PULSE 113; RESP 18; TEMP 37; O2SAT 96
[2021-02-13] MEDS: Magnesium Chloride 64 MG Delay Rel.Tablet 128 MG PO (22:31)
[2021-02-13] MEDS: Pregabalin 75 MG Capsule PO (22:32)
[2021-02-13] MEDS: cloNIDine HCl 0.1 MG Tablet 0.3 MG PO (22:32)
[2021-02-13 22:34] LABS: Mucous, Urine 0 SEEN /hpf (<or=2+); Red Blood Cells-Urine 0 SEEN /hpf (0-5); Squamous Epithelial Cells - UA 0 SEEN /hpf (5-10)
[2021-02-13 22:49] LABS: Color, Urine Yellow (Yellow); Glucose, Dipstick 250 mg/dl (Normal); Ketone-Dipstick 50 mg/dl (Negative); Leukocyte Esterase-Dipstick 500 /ul (Negative); Nitrite-Dipstick Positive (Negative); Occult Blood-Urine 25 /ul (Negative); Protein-Dipstick 30 mg/dl (Negative); Specific Gravity, Urine 1.015 (1.002-1.030); Urine Bilirubin Dipstick Negative (Negative); Urine Clarity Clear (Clear); Urine Urobilinogen Normal (Normal)
[2021-02-13 23:04] LABS: Bacteria 2+ /hpf (None Seen); White Blood Cells 10-25 SEEN /hpf (0-5)
[2021-02-13] MEDS: Heparin Injection (Vial) 5,000 UNIT/ML VIAL 5000 UNIT SC (23:15)
[2021-02-13] MEDS: oxyCODONE 5 MG Tablet PO (23:18)
[2021-02-13 23:26] LABS: Bedside Glucose 317 mg/dL (70-110)
[2021-02-14] VITALS (14 sets, daily range): BP systolic 128–167; BP diastolic 58–86; PULSE 97–114; RESP 16–18; TEMP 36.7–37.7; O2SAT 91–97; BMI 29.1
[2021-02-14] MEDS: 0.9% Saline Lock 10 ML Syringe IV ×4 (00:34→17:32)
[2021-02-14] MEDS: Morphine 2 MG/ML Syringe IV ×4 (00:34→17:32)
[2021-02-14 07:51] LABS: Absolute Lymphocyte Count 0.98 X10^3/uL (0.83-4.51); Absolute Neutrophil Count 5.5 X10^3/uL (2.0-7.7); Basophil# 0.01 X10^3/uL; Basophil% 0.1 % (0-1); Hematocrit 25.1 % (37-47); Hemoglobin 8.2 g/dL (12.0-15.0); Lymphocyte # 0.98 X10^3/ul (0.83-4.51); Lymphocyte % 14.1 % (19-41); Mean Corp Hgb Conc 32.7 g/dL (32-36); Mean Corpuscular Hgb 28.2 pg (27.0-32.0); Mean Corpuscular Volume 86.3 fL (81-99); Mean Platelet Vol. 10.8 fl (6.2-12.0); Monocyte# 0.42 X10^3/uL; NRBC Flagged by Analyzer 0 % (0-5); Neutrophil # 5.53 X10^3/uL (2.7-7.7); Neutrophil % 79.4 % (47-70); Platelet Count 227 K/mm3 (150-450); RBC Distribution Width CV 13.3 % (11.6-14.6); RBC Distribution Width SD 42.3 fl (35.1-43.9); Red Blood Count 2.91 M/mm3 (4.2-5.4)
[2021-02-14] MEDS: Pantoprazole Sodium 40 MG Tablet PO (08:18)
[2021-02-14] MEDS: Pregabalin 75 MG Capsule PO ×2 (08:18→21:24)
[2021-02-14] MEDS: Aspirin 81 MG TAB.CHEW PO (08:18)
[2021-02-14] MEDS: Polyethylene Glycol 3350 17 GM PACKET PO (08:18)
[2021-02-14] MEDS: Magnesium Chloride 64 MG Delay Rel.Tablet 128 MG PO ×2 (08:18→21:24)
[2021-02-14] MEDS: dilTIAZem CD 180 MG Capsule PO (08:18)
[2021-02-14] MEDS: cloNIDine HCl 0.1 MG Tablet 0.3 MG PO ×2 (08:18→21:24)
[2021-02-14 08:19] LABS: Hemoglobin A1c 9.4 % (3.8-5.6)
[2021-02-14 08:21] LABS: AST(SGOT) 60 U/L (15-37); Alanine Aminotransfer ALT/SGPT 48 U/L (13-56); Albumin, Serum 2.3 g/dL (3.2-5.0); Alkaline Phosphatase 175 U/L (45-117); Bilirubin, Direct 0.11 mg/dL (0.00-0.30); Globulin 3.5 g/dL (2.2-4.2); Protein, Total 5.8 g/dL (6.4-8.2)
[2021-02-14 08:25] LABS: Anion Gap 6 (5-15); BUN 19 mg/dL (7-18); BUN/Creat Ratio 15.3 RATIO (10-20); Calcium,Total 8.5 mg/dL (8.5-10.1); Chloride 105 mmol/L (98-107); Creatinine, Serum 1.24 mg/dL (0.55-1.02); EST Glomerular Filtration Rate 47 mL/min (>60); Est Glom Filt Rate - Afr Amer 57 mL/min (>60); Glucose 287 mg/dL (74-106); Potassium 4.3 mmol/L (3.5-5.1); Sodium Level 138 mmol/L (136-145)
[2021-02-14] MEDS: Insulin Lispro 100 UNIT/ML INSULN.PEN SC ×2 (08:28→17:58)
[2021-02-14 08:45] LABS: Partial Thromboplast Time 39.1 Seconds (24.1-36.2)
[2021-02-14 09:06] LABS: Bedside Glucose 252 mg/dL (70-110)
--- NOTE | 2021-02-14 12:00 | CASEMGMT ---
RN SHIRA ACQUISITION PROFESSIONAL CM to room to meet with patient for initial transition planning/care coordination assessment. PRIYA SILVA introduced self and role at [facility]. Pt voices understanding and consents to assessment at this time. Pt resting in bed in no distress at this time. Significant other, Karri, @ bedside. Pt agreeable to assessment w/Karri @ bedside. Pt is A/O at this time and answers all questions appropriately. Care providers, pharmacy, and demographics verified/updated at this time. PCP:Dr Serrano Specialists:Dr Carbajal-endocrinology, Dr Steel-pain mgmt, Samm Syed, PA @ [facility], Dr Krueger-GI, Dr Dacosta--ophthalmology. Pt does not see neurologist. [facility]erred [facility]acy: [facility] Insurance: Na [employer], [employer], [employer] Prescription Benefit: Yes Living Will/HPOA: Pt does not currently have LW/HCPOA and would like to complete. She states she would like signif other, Karri, to be her POA. LNOK: parents are . She has no children and no siblings. She has cousins, nieces, and nephews but states I don't see any of them or deal with any of them. Living Arrangements: Lives with signif other, Karri, in one-story home w/3 steps to enter. Independent w/ADL's prior to fall. Karri and pt have been together for 12 years. He is supportive and able/willing to help when available. He works Mon-Sat from 1:30 PM to 7 PM. Neighbor is also supportive and pt and Karri both think he would come stay with pt daily while Karri is at work, if needed. Transportation: Pt does not drive. Karri provides all transportation. DME: States has the following DME: shower chair, grab bars, rollator x 2, W/C x 2, medical alert button, Yane glucose monitoring system Pt states no need for further DME at this time. HHC/SNF: [facility]x of [facility] about 2 yrs ago. Hx of [facility]. PLAN: TBD. Pt would like to go home @ d/c, if able, but states would consider a SNF if it is necessary. Kierra PAGAN RN, CM
--- NOTE | 2021-02-14 12:18 | CASEMGMT ---
SW assisted pt in completing POA form, she listed Karri Guthrie as POA. Original will be given to pt and a copy will be placed on chart when pt returns from surgery. VICENTE Vicente
--- NOTE | 2021-02-14 12:55 | RAD_ITS ---
STUDY: X-RAY - PELVIS AND LEFT HIP REASON FOR EXAM: Female, 60 years old. HIP NAILING TECHNIQUE: 5 intraoperative views of the pelvis and hip. COMPARISON: None. FINDINGS: Intraoperative imaging provided for open reduction and internal fixation of the left intertrochanteric fracture using intramedullary rick and compression screw fixation. There is good alignment. RAD/Hip 1 view with Pelvis IMPRESSION: Intraoperative imaging for ORIF of the left intertrochanter fracture. There is good alignment. Electronically Signed: Angel Manley MD at 14:51 EST , Service support ,
--- NOTE | 2021-02-14 13:07 | PN.HOSP_ITS ---
Documented by User: Samm SALAZAR 02/14/21 13:14 Subjective Subjective Patient is a 60-year-old female comfortably lying in bed, alert and orient x3. Patient reports pain is currently managed well on current medications and denies development of any new symptoms overnight. Does not appear in acute distress. Objective Data Objective Data Vital Signs: Vital Signs Temp Pulse Resp BP Pulse Ox 100 F H 100 16 152/75 H 95 02/14/21 12:43 02/14/21 12:43 02/14/21 12:43 02/14/21 12:43 02/14/21 12:43 Oxygen Delivery Method Room Air Weight: 175 lb 0.752 oz Body Mass Index (BMI) 29.1 Intake & Output: Intake and Output for Last 24 Hours 02/12/21 02/13/21 02/14/21 23:59 23:59 23:59 Intake Total 411.25 / 411.25 998.75 / 998.75 Output Total 1000 / 1000 600 / 600 Balance -588.75 / -588.75 398.75 / 398.75 Lab / Micro Data Result Diagrams: 02/14/21 07:14 02/14/21 07:14 Labs: Laboratory Results - last 24 hr 02/13/21 16:34: WBC 9.1, RBC 3.27 L, Hgb 9.3 L, Hct 28.3 L, MCV 86.5, MCH 28.4, MCHC 32.9, RDW Std Deviation 42.2, RDW Coeff of Chris 13.3, Plt Count 226, MPV 10.4, Immature Gran % (Auto) 0.300, Neut % (Auto) 79.4 H, Lymph % (Auto) 12.8 L, [place] % (Auto) 4.0, Eos % (Auto) 3.2, Baso % (Auto) 0.3, Absolute Neuts (auto) 7.2, Absolute Lymphs (auto) 1.16, Nucleated RBC % 0 02/13/21 16:34: PT 13.7, INR 1.1, APTT 32.4 02/13/21 16:34: Sodium 138, Potassium 5.1, Chloride 106, Carbon Dioxide 28.0, Anion Gap 4 L, BUN 23 H, Creatinine 1.39 H, Estim Creat Clear Calc 39.70, Est GF R (MDRD) Af Amer 50 L, Est GFR (MDRD) Non-Af 41 L, BUN/Creatinine Ratio 16.5, Glucose 242 H, Calcium 9.0, Total Bilirubin 0.40, AST 37, ALT 38, Alkaline Phosphatase 190 H, Total Protein 6.5, Albumin 2.8 L, Globulin 3.7, Albumin/Globulin Ratio 0.8 L 02/13/21 16:34: Blood Type A POSITIVE, Antibody Screen NEGATIVE 02/13/21 16:34: Phosphorus 3.8 02/13/21 22:30: Urine Color Yellow, Urine Clarity Clear, Urine pH 6.0, Ur Specific Everly 1.015, Urine Protein 30 H, Urine Glucose (UA) 250 H, Urine Ketones 50 H, Urine Occult Blood 25 H, Urine Nitrite Positive H, Urine Bilirubin Negative, Urine Urobilinogen Normal, Ur Leukocyte Esterase 500 H, Urine RBC 0 SEEN, Urine WBC 10-25 SEEN, Ur Squamous Epith Cells 0 SEEN, Urine Bacteria 2+, Urine Mucus 0 SEEN 02/13/21 23:09: POC Glucose 317 H 02/14/21 07:14: WBC 7.0, RBC 2.91 L, Hgb 8.2 L, Hct 25.1 L, MCV 86.3, MCH 28.2, MCHC 32.7, RDW Std Deviation 42.3, RDW Coeff of Chris 13.3, Plt Count 227, MPV 10.8, Immature Gran % (Auto) 0.400, Neut % (Auto) 79.4 H, Lymph % (Auto) 14.1 L, [place] % (Auto) 6.0, Eos % (Auto) 0.0, Baso % (Auto) 0.1, Absolute Neuts (auto) 5.5, Absolute Lymphs (auto) 0.98, Nucleated RBC % 0 02/14/21 07:14: Sodium 138, Potassium 4.3, Chloride 105, Carbon Dioxide 27.0, Anion Gap 6, BUN 19 H, Creatinine 1.24 H, Estim Creat Clear Calc 44.50, Est GFR (MDRD) Af Amer 57 L, Est GFR (MDRD) Non-Af 47 L, BUN/Creatinine Ratio 15.3, Glucose 287 H, Calcium 8.5 02/14/21 07:14: Hemoglobin A1c 9.4 H 02/14/21 07:14: APTT 39.1 H 02/14/21 07:14: Total Bilirubin 0.40, Direct Bilirubin 0.11, AST 60 H, ALT 48, Alkaline Phosphatase 175 H, Total Protein 5.8 L, Albumin 2.3 L, Globulin 3.5 02/14/21 08:26: POC Glucose 252 H Micro: Microbiology 02/13/21 16:12 Nasal Secretion SARS-CoV-2 Antigen (Rapid) - Final Radiography Diagnostic Testing: Radiology Impression Chest X-Ray 02/13/21 16:00 IMPRESSION: There are no acute findings. Electronically Signed: Yanick Raines MD at 16:19 EST , Service support , Hip/Pelvis X-Ray 02/13/21 16:00 IMPRESSION: Left comminuted intertrochanteric fracture. Electronically Signed: Yanick Raines MD at 16:22 EST , Service support , Physical Exam Const alert, oriented x3 and no apparent distress HEENT head/scalp atraumatic and moist oral mucous membranes Head and Scalp: normocephalic Eyes PERRL, EOMs intact bilaterally and conjunctivae normal Neck no lymphadenopathy, supple and no JVD Resp normal respiratory effort, no retractions, no use of accessory muscles and clear to auscultation bilaterally Cardio regular rate, regular rhythm, no murmurs and no JVD GI normal to inspection, nondistended, normoactive bowel sounds, soft to palpation and non-tender Extremity normal to inspection, full ROM and no clubbing, cyanosis or edema Extremity Narrative: No obvious deformity or ecchymosis about the left hip. Peripheral Pulses: Yes pulses 2+ throughout Skin no rashes or lesions noted, no wounds, skin turgor normal and no jaundice Neuro CN's II-XII intact bilaterally Psych affect normal Assessment & Plan Assessment/Plan (1) Closed intertrochanteric fracture of left hip: PLAN: Day 1) Discharge planning: To be determined pending PT/OT eval. 1) left intertrochanteric hip fracture status post mechanical fall Patient is to undergo left femoral cephalomedullary nailing per Dr. King this afternoon. Management per orthopedics. 2) abnormal UA Patient's UA was significant for yellow clear urine with positive nitrites, 500 leukocyte esterase and 2+ bacteria. Patient does not complain of any urinary symptoms and was not tender to palpation in the suprapubic area. Patient is without a white count and vital signs are stable and patient is afebrile. Continue to monitor CBC and for any urinary symptoms. 3) HTN Stable, continue home clonidine. 4) DM2 Continue home insulin regimen, Accu-Cheks with sliding scale insulin ordered. 5) hyperlipidemia Continue statin. DVT prophylaxis - Heparin Patient seen by Samm Bermudez PA-C, under the supervision of Dr. Og. Documented by User: Dr. Mauro Og MD 02/14/21 14:31 Objective Data Lab / Micro Data Result Diagrams: 02/14/21 07:14 02/14/21 07:14 Charges/Coding Addendum Addendum: Dr. Og: I personally reviewed the chart and examined the patient, and agree with the above findings. 60-year-old female presented to the hospital with left hip pain after she had a mechanical fall she said that she was tried to turn off her boyfriend alarm on the fireplace when she lost her balance and just fell from standing height onto her left hip. She likely does have osteoporosis but is not sure if she is ever had a DEXA scan. Consult orthopedic surgery for operative repair today. Once test complete we will plan on PT/OT for evaluation and discharge planning. She states that her pain is currently controlled this morning. Visit Charges Inpatient E&M: 18862 Subs Hosp L2
[2021-02-14] MEDS: Cefazolin 2 GM in 0.9% Normal Saline 100 ML IV (13:19)
--- NOTE | 2021-02-14 14:26 | OP.PCM_ITS ---
Problems Associated Problem List Diagnoses (1) Closed intertrochanteric fracture of left hip: Report of Operation Date of Procedure: 02/14/21 Description of Surgical Findings:: Preoperative diagnosis: Left intertrochanteric proximal femur fracture Postoperative diagnosis: Left intertrochanteric proximal femur fracture Procedure: Treatment of intertrochanteric hip fracture with intramedullary nail left femur Surgeon: Mauro King DO Anesthesia: General endotracheal Anesthesiologist: Dr. Kumar Complications: None Drains: None Estimated blood loss:150 cc Urinary output: Per anesthesia record IV fluids: Per anesthesia record Specimens: None Surgical implants: [employer] TriGen InterTAN 10 mm x 18 cm 125 degree left, 105 mm lag screw, 100 mm compression screw, TriGen L-P screw x2-sizes 5 mm by 37.5 mm Surgical indications: This is a 60-year-old female seen in consultation at [facility] after a fall from standing height, mechanical in nature while she was attempting to turn off an alarm clock. She tripped over carpet. Patient is a household ambulator with a Rollator for ambulation which she attributes to orthostatic hypotension. Patient was admitted under the service of the hospitalist. I saw the patient in consultation. I recommended cephalomedullary nailing of the left femur was recommended. Patient was medically optimized by the medical service. I discussed the procedure at length with the patient including the risks, benefits, alternatives of procedure including but not limited to bleeding, infection, need for additional surgery, malunion or nonunion, persistent pain, persistent disability, loss of life or limb, risk of anesthesia, mechanical failure of orthopedic hardware. Patient acknowledged understanding of these risks and elected to proceed. Description of procedure: Prior to the procedure, patient was brought to the preoperative holding area where patient was identified by name, medical record number and date of . I confirmed the side, site, operation to be performed with the patient. Informed consent was confirmed, All questions were answered to patient satisfaction. The operative extremity was marked. She was also seen by anesthesia staff and anesthesia consent obtained.At time of the operative procedure, pt was brought to the operative suite. General anesthesia was induced on the hospital bed and endotracheal tube placed. After adequate anesthesia and securing the tube, patient was then positioned supine on a fracture table. The operative foot was well-padded and placed in a ski boot attached to the traction unit on the fracture table. The nonoperative leg was extended and secured to the lateral post of the fracture table. A well-padded perineal post was placed and the left upper extremity was brought across patient's torso and secured. A reduction maneuver was applied to the operative leg with traction, internal rotation, adduction. Fluoroscopy revealed near anatomic reduction. Fluoroscopy was used to confirm an acceptable reduction. We then prepped and draped the left lower extremity in normal sterile orthopedic fashion. 2 g Ancef was administered prior to incision by the anesthesia staff. Fluoroscopy was used to confirm the level of the incision approximately 4 fingerbreadths proximal to the tip of the greater trochanter in line with the femoral shaft. We sharply incised the skin with a 10 blade scalpel carried an incision sharply through the subcutaneous tissue past the IT band to the level of the greater trochanter. A starting pin was utilized and under fluoroscopic guidance placed at the tip of the greater trochanter in line with the femoral shaft on the lateral view. We then, on power, passed the guidepin into the intramedullary canal. A opening reamer was then placed over top of the guide pin and soft tissue protector placed. We utilized the opening reamer to establish entry into the intramedullary canal. The guide pin removed. Given the stable fracture pattern, elected to treat the fracture with a short cephalomedullary nail. We selected a 10 mm diameter. The nail was opened on the back table and assembled to the targeting guide. The nail was placed through the opening reamer hole and impacted down to an appropriate depth and rotation. Skin was sharply incised on the lateral thigh and the targeting sleeve placed down to bone. The drill pin for the leg screw was then directed into the femoral head to a level less than 25 mm tip to apex distance on the AP and lateral projections. An appropriately sized lag screw of 105 mm was measured . We then reamed for the compression screw past the level of the fracture. A derotation bar was placed and we inserted the cannulated lag screw over the drill pin. We again confirmed appropriate placement on fluoroscopy. The lag screw was significantly anteriorly on the lateral projection, however on all views including live fluoroscopy the tip of the screw appeared to be within the femoral head. The compression screw was then placed under power and tightened under with a manual driver starting gate after traction removed from the left lower extremity. We used fluoroscopy to view the amount of compression across the fracture site. After maxing out the compression, we were content with our reduction and elected to proceed with interlocking screw placement. Lateral targeting guide was placed through the jig. Skin was sharply incised with 10 blade scalpel down through the IT band. Hemostat was used to spread the tissue. I then drilled bicortically through the nail and measured a 37.5 mm interlocking screw. Drill was removed and the screw was placed on power and tightened by hand screwdriver with excellent purchase. Final fluoroscopic images were obtained. Wounds were copiously irrigated with normal saline solution. Deep tissues were closed with 0 Vicryl suture and subcutaneous tissue closed with 2-0 Vicryl suture. Skin was finally closed with remberto. Sterile compression dressings were applied to the wounds. Patient was then taken out of traction entirely and removed from both traction boot and well leg ahn. Patient was transferred back to his hospital bed in stable condition and extubated safely in the operative suite. Patient was then transferred to PACU in stable condition. Post Operative Plan: Weightbearing: Weightbearing as tolerated left lower extremity with a walker Antibiotics: Ancef 1 g x 3 doses postoperatively, 1 dose given preoperatively DVT Prophylaxis: Lovenox 40 mg subcu daily starting tomorrow 02/15/2021 Howard: Per primary, from my standpoint can DC POD#1 Dressing: Dry sterile dressing changes daily and as needed for saturation X-Rays: 2?3 weeks postop in the office Follow-up: 2-3 weeks with me in the office for x-rays and staple removal.
[2021-02-14 15:21] LABS: Bedside Glucose 218 mg/dL (70-110)
[2021-02-14 18:05] LABS: Bedside Glucose 249 mg/dL (70-110)
[2021-02-14] MEDS: Cefazolin 1 GM/50 ML BAG IV (21:21)
[2021-02-14] MEDS: Atorvastatin Calcium 40 MG Tablet PO (21:24)
[2021-02-14] MEDS: oxyCODONE 5 MG Tablet PO (21:24)
[2021-02-14] MEDS: Acetaminophen 325 MG Tablet 650 MG PO (21:24)
[2021-02-14 21:45] LABS: Bedside Glucose 217 mg/dL (70-110)
[2021-02-15] VITALS (15 sets, daily range): BP systolic 99–180; BP diastolic 56–87; PULSE 80–98; RESP 16–18; TEMP 36–37.4; O2SAT 86–100
[2021-02-15] MEDS: Morphine 2 MG/ML Syringe IV ×2 (02:28→19:12)
[2021-02-15] MEDS: cloNIDine HCl 0.1 MG Tablet 0.3 MG PO ×2 (05:45→22:50)
[2021-02-15] MEDS: Enoxaparin 40 MG/0.4 ML Syringe SC (05:45)
[2021-02-15] MEDS: Cefazolin 1 GM/50 ML BAG IV (05:45)
[2021-02-15 07:25] LABS: Hematocrit 22.4 % (37-47); Hemoglobin 7.1 g/dL (12.0-15.0); Mean Corp Hgb Conc 31.7 g/dL (32-36); Mean Corpuscular Hgb 27.8 pg (27.0-32.0); Mean Corpuscular Volume 87.8 fL (81-99); Mean Platelet Vol. 10.5 fl (6.2-12.0); Platelet Count 217 K/mm3 (150-450); RBC Distribution Width CV 13.8 % (11.6-14.6); RBC Distribution Width SD 44.5 fl (35.1-43.9); Red Blood Count 2.55 M/mm3 (4.2-5.4); White Blood Count 7.5 K/mm3 (4.4-11.0)
--- NOTE | 2021-02-15 08:19 | PCM.PN.ORT ---
Subjective Subjective Patient seen and examined at bedside this morning. Patient resting comfortably. She states she attempted to get up the bedside had significant difficulty with full assistance. Denies fevers, chills nausea or vomiting, chest pain or shortness of breath. Objective Data Objective Data Vital Signs: Vital Signs Temp Pulse Resp BP Pulse Ox 98.8 F 98 18 108/70 96 02/15/21 02:17 02/15/21 02:17 02/15/21 02:17 02/15/21 02:17 02/15/21 07:35 Oxygen Delivery Method Room Air Weight: 175 lb 0.752 oz Body Mass Index (BMI) 29.1 Intake & Output: Intake and Output for Last 24 Hours 02/13/21 02/14/21 02/15/21 23:59 23:59 23:59 Intake Total 411.25 / 411.25 1458.75 / 2058.75 950 / 950 Output Total 1000 / 1000 1125 / 1525 850 / 850 Balance -588.75 / -588.75 333.75 / 533.75 100 / 100 Lab / Micro Data Result Diagrams: 02/15/21 06:15 02/14/21 07:14 Labs: Laboratory Results - last 24 hr 02/14/21 07:14: Sodium 138, Potassium 4.3, Chloride 105, Carbon Dioxide 27.0, Anion Gap 6, BUN 19 H, Creatinine 1.24 H, Estim Creat Clear Calc 44.50, Est GFR (MDRD) Af Amer 57 L, Est GFR (MDRD) Non-Af 47 L, BUN/Creatinine Ratio 15.3, Glucose 287 H, Calcium 8.5 02/14/21 07:14: Hemoglobin A1c 9.4 H 02/14/21 07:14: APTT 39.1 H 02/14/21 07:14: Total Bilirubin 0.40, Direct Bilirubin 0.11, AST 60 H, ALT 48, Alkaline Phosphatase 175 H, Total Protein 5.8 L, Albumin 2.3 L, Globulin 3.5 02/14/21 08:26: POC Glucose 252 H 02/14/21 15:17: POC Glucose 218 H 02/14/21 17:41: POC Glucose 249 H 02/14/21 21:19: POC Glucose 217 H 02/15/21 06:15: WBC 7.5, RBC 2.55 L, Hgb 7.1 L, Hct 22.4 L, MCV 87.8, MCH 27.8, MCHC 31.7 L, RDW Std Deviation 44.5 H, RDW Coeff of Chris 13.8, Plt Count 217, MPV 10.5 Micro: Microbiology 02/13/21 16:12 Nasal Secretion SARS-CoV-2 Antigen (Rapid) - Final Radiography Diagnostic Testing: Radiology Impression Hip/Pelvis X-Ray 02/14/21 12:55 IMPRESSION: Intraoperative imaging for ORIF of the left intertrochanter fracture. There is good alignment. Electronically Signed: Angel Manley MD at 14:51 EST , Service support , Physical Exam Narrative General - A&Ox3, NAD. Left lower extremity -incisional dressings C/D/I. SILT Sural, Saphenous, SPN, DPN, Tibial N. distributions. DP, PT 2+. BCR. DF, PF, EHL 5/5. No calf TTP. Assessment & Plan Assessment/Plan (1) Closed intertrochanteric fracture of left hip: PLAN: POD#1 s/p left hip CMN - Acute on chronic blood loss anemia noted with Hgb 7.1 - PT/OT WBAT LLE - Maintain dressing - Likely will need placement - No evidence of hematoma on exam - Concern for UTI preop - defer to primary, would likely benefit from abx due to pre-op fever. I will have her complete 24 hrs Ancef post-op - Will follow.
[2021-02-15] MEDS: Pantoprazole Sodium 40 MG Tablet PO (09:07)
[2021-02-15] MEDS: Insulin Lispro 100 UNIT/ML INSULN.PEN SC ×3 (09:07→17:18)
[2021-02-15] MEDS: Magnesium Chloride 64 MG Delay Rel.Tablet 128 MG PO ×2 (09:07→22:50)
[2021-02-15] MEDS: dilTIAZem CD 180 MG Capsule PO (09:07)
[2021-02-15] MEDS: Aspirin 81 MG TAB.CHEW PO (09:07)
[2021-02-15] MEDS: Pregabalin 75 MG Capsule PO ×2 (09:11→22:50)
[2021-02-15 09:25] LABS: Bedside Glucose 165 mg/dL (70-110)
[2021-02-15 09:28] LABS: Iron 25 ug/dL (50-170); Iron Binding Capacity,Total 230 ug/dL (250-450); PERCENT IRON SATURATION 10.9 % (15.0-55.0)
--- NOTE | 2021-02-15 09:55 | CT_ITS ---
STUDY: CT HEAD STROKE PROTOCOL W/O CONTRAST INJECTION REASON FOR EXAM: Female, 60 years old. Altered mental status RADIATION DOSAGE (If Supplied By Facility): CTDIvol = ( 44.99 ) mGy, DLP = ( 745.49 ) mGycm TECHNIQUE: Transaxial CT imaging of the brain was performed without administration of intravenous contrast material. Individualized dose optimization techniques were used for this CT. COMPARISON: No relevant priors. FINDINGS: Normal soft tissue structures. Normal calvarium. There is mild cerebral atrophy with widening of the extra-axial spaces and ventricular dilatation. There are areas of decreased attenuation within the white matter tracts of the supratentorial brain, consistent with microvascular disease changes. Normal basal ganglia and thalami. Normal brainstem. Normal cerebellum. There is no intracranial hemorrhage. There are no findings of an acute ischemic infarction. Atherosclerotic calcification of the cavernous portions of the internal carotid arteries bilaterally. Normal visualized paranasal sinuses. CT/STROKE Brain/Head without Cont IMPRESSION: Chronic involutional changes of the brain. N.B. : The above Results were Read Back by Angel Manley MD to NAOMY THOMAS and understanding confirmed on 02/15/2021 11:46:45 (ET). Electronically Signed: Angel Manley MD at 11:48 EST , Service support ,
[2021-02-15] MEDS: 0.9% Saline Lock 10 ML Syringe IV ×2 (10:26→19:11)
[2021-02-15] MEDS: Ceftriaxone 1 GM/50 ML BAG IV (11:44)
[2021-02-15 12:01] LABS: Bedside Glucose 160 mg/dL (70-110)
--- NOTE | 2021-02-15 12:18 | PCM.PN.HOSP ---
Documented by User: Naomy SALAZAR 02/15/21 12:37 Subjective Subjective Patient is a 54-year-old female comfortably resting in bed, alert and orient x3. Although patient is appropriately alert and oriented she is slow to respond and seems to have had a decrease in her mental status in the past 24 hours as she does not respond appropriately to questions regarding her care. Objective Data Objective Data Vital Signs: Vital Signs Temp Pulse Resp BP Pulse Ox 98.0 F 88 16 117/62 95 02/15/21 08:17 02/15/21 08:17 02/15/21 08:17 02/15/21 08:17 02/15/21 08:17 Oxygen Delivery Method Room Air Weight: 175 lb 0.752 oz Body Mass Index (BMI) 29.1 Intake & Output: Intake and Output for Last 24 Hours 02/13/21 02/14/21 02/15/21 23:59 23:59 23:59 Intake Total 411.25 / 411.25 1458.75 / 2058.75 950 / 950 Output Total 1000 / 1000 1125 / 1525 1025 / 1025 Balance -588.75 / -588.75 333.75 / 533.75 -75 / -75 Lab / Micro Data Result Diagrams: 02/15/21 06:15 02/14/21 07:14 Labs: Laboratory Results - last 24 hr 02/13/21 16:34: Crossmatch See Detail 02/14/21 15:17: POC Glucose 218 H 02/14/21 17:41: POC Glucose 249 H 02/14/21 21:19: POC Glucose 217 H 02/15/21 06:15: WBC 7.5, RBC 2.55 L, Hgb 7.1 L, Hct 22.4 L, MCV 87.8, MCH 27.8, MCHC 31.7 L, RDW Std Deviation 44.5 H, RDW Coeff of Chris 13.8, Plt Count 217, MPV 10.5 02/15/21 06:15: Iron 25 L, TIBC 230 L, Iron Saturation 10.9 L 02/15/21 09:05: POC Glucose 165 H 02/15/21 11:43: POC Glucose 160 H Micro: Microbiology 02/13/21 16:12 Nasal Secretion SARS-CoV-2 Antigen (Rapid) - Final Radiography Diagnostic Testing: Radiology Impression Hip/Pelvis X-Ray 02/14/21 12:55 IMPRESSION: Intraoperative imaging for ORIF of the left intertrochanter fracture. There is good alignment. Electronically Signed: Angel Manley MD at 14:51 EST , Service support , Brain CT 02/15/21 09:55 IMPRESSION: Chronic involutional changes of the brain. N.B. : The above Results were Read Back by Angel Manley MD to NAOMY THOMAS and understanding confirmed on 02/15/2021 11:46:45 (ET). Electronically Signed: Angel Manley MD at 11:48 EST , Service support , ADDENDUM: 02/15/21 1155 IMPRESSION: Chronic involutional changes of the brain. N.B. : The above Results were Read Back by Angel Manley MD to NAOMY THOMAS and understanding confirmed on 02/15/2021 11:46:45 (ET). Electronically Signed: Angel Manley MD at 11:48 EST , Service support , Physical Exam Const alert and oriented x3 Constitutional Narrative: Is alert and oriented however does not respond to other questions appropriately when asked. Orientation / Consciousness: lethargic HEENT head/scalp atraumatic and moist oral mucous membranes Head and Scalp: normocephalic Eyes PERRL, EOMs intact bilaterally and conjunctivae normal Neck no lymphadenopathy, supple and no JVD Resp normal respiratory effort, no retractions, no use of accessory muscles and clear to auscultation bilaterally Cardio regular rate, regular rhythm, no murmurs and no JVD GI normal to inspection, nondistended, normoactive bowel sounds, soft to palpation and non-tender Extremity normal to inspection, full ROM and no clubbing, cyanosis or edema Skin no rashes or lesions noted, no wounds, skin turgor normal and no jaundice Neuro CN's II-XII intact bilaterally Psych affect normal Assessment & Plan Assessment/Plan (1) Closed intertrochanteric fracture of left hip: PLAN: Day 2 Discharge planning: SNF placement at discharge, CM/SW following. 1) left intertrochanteric hip fracture status post mechanical fall Patient underwent left femoral cephalomedullary nailing performed by Dr. King on 02/14/2021. Patient's hemoglobin was low status post surgery, otherwise uncomplicated procedure. Management per orthopedics. 2) Acute UTI Patient's UA was significant for yellow clear urine with positive nitrites, 500 leukocyte esterase and 2+ bacteria. Patient does not complain of any urinary symptoms and was not tender to palpation in the suprapubic area. Patient is without a white count and vital signs are stable and patient is afebrile. Patient has had a decrease in mental status in the past 24 hours. Initiate Rocephin, urine cultures ordered, continue to monitor CBC. 3) Acute encephalopathy Unclear etiology, possibly related to #2. Patient's mental status has changed in the past 24 hours. Patient was unable to respond about whether she would be agreeable to custodial care at discharge. Patient just stared at me blankly and refused to answer the question. This is a change in mentation from admission. Brain CT was ordered and only showed chronic involutional changes of the brain. EEG was ordered, however cannot be obtained due to machine being broken. Plan; as above, continue to monitor, may need SOC telemetry neurology consult if mental status does not improve back to baseline. 4) acute on chronic normocytic anemia status post surgery Patient's hemoglobin was 7.1, baseline appears between 8 and 9. EBL during surgery was noted to be 150 cc and was not noted was abnormal. Patient was placed on Lovenox per orthopedic surgery for postop care. 2 units of PRBCs to be transfused, monitor H&H, iron studies ordered. 5) HTN Stable, continue home clonidine. 6) DM2 Continue home insulin regimen, Accu-Cheks with sliding scale insulin ordered. 7) hyperlipidemia Continue statin. DVT prophylaxis - Lovenox Patient seen by Naomy Thomas PA-C, under the supervision of Dr. Og. Documented by User: Dr. Mauro Og MD 02/15/21 14:03 Objective Data Lab / Micro Data Result Diagrams: 02/15/21 06:15 02/14/21 07:14 Charges/Coding Addendum Addendum: Dr. Og: I personally reviewed the chart and examined the patient, and agree with the above findings. 60-year-old female presented to the hospital with left hip pain after she had a mechanical fall she said that she was tried to turn off her boyfriend alarm on the fireplace when she lost her balance and just fell from standing height onto her left hip. She likely does have osteoporosis but is not sure if she is ever had a DEXA scan. Consult orthopedic surgery for operative repair today. Once test complete we will plan on PT/OT for evaluation and discharge planning. She states that her pain is currently controlled this morning. 02/15/2021: She has some mild encephalopathy secondary to UTI as well acute blood loss anemia from surgery. We will transfuse her 2 units and continue antibiotics for her urinary tract infection. Continue with PT/OT for evaluation and possible placement on discharge. Visit Charges Inpatient E&M: 22733 Subs Hosp L2
[2021-02-15] MEDS: Acetaminophen 325 MG Tablet 650 MG PO (13:38)
--- NOTE | 2021-02-15 15:14 | CASEMGMT ---
Social Work SW met with pt in room and introduced self and role of SW. Pt spoke with pt regarding need for SNF as therapists state pt is assist of 2. Pt is agreeable to SNF. List of SNF providers including quality and resource use data and in network with insurance and in geographic area provided. Pt [facility] provider [facility] Call [facility] and they do not have beds available. Pt updated. Pt stating she would like to stay in [place] but cannot decide on which facility she wants. Phone call to [facility] and they do not have beds available, [facility] is not currently accepting patients, [place] does not have any beds available, [facility] does have beds available. Referral faxed to [facility]. SW went to room to inform pt, however, pt is sleeping soundly. Will update pt tomorrow. SHARON Schrader
[2021-02-15 17:25] LABS: Bedside Glucose 253 mg/dL (70-110)
[2021-02-15 19:34] LABS: Hematocrit 29.1 % (37-47); Hemoglobin 9.6 g/dL (12.0-15.0)
[2021-02-15 22:50] LABS: Bedside Glucose 330 mg/dL (70-110)
[2021-02-15] MEDS: Atorvastatin Calcium 40 MG Tablet PO (22:50)
--- NOTE | 2021-02-15 22:50 | NURSING ---
Pt declined hs snack.
[2021-02-16] VITALS (9 sets, daily range): BP systolic 100–174; BP diastolic 55–81; PULSE 80–91; RESP 16; TEMP 36.8–37.3; O2SAT 91–98
[2021-02-16] MEDS: Morphine 2 MG/ML Syringe IV ×4 (00:15→15:32)
[2021-02-16] MEDS: Acetaminophen 325 MG Tablet 650 MG PO ×3 (05:01→20:31)
[2021-02-16] MEDS: cloNIDine HCl 0.1 MG Tablet 0.3 MG PO ×3 (05:02→22:20)
[2021-02-16] MEDS: Enoxaparin 40 MG/0.4 ML Syringe SC (05:03)
[2021-02-16 07:43] LABS: Absolute Lymphocyte Count 1.06 X10^3/uL (0.83-4.51); Absolute Neutrophil Count 6.5 X10^3/uL (2.0-7.7); Basophil# 0.03 X10^3/uL; Basophil% 0.4 % (0-1); Eosinophil# 0.11 X10^3/uL; Eosinophils% 1.3 % (0-5); Hematocrit 26.6 % (37-47); Hemoglobin 8.8 g/dL (12.0-15.0); Lymphocyte # 1.06 X10^3/ul (0.83-4.51); Lymphocyte % 12.6 % (19-41); Mean Corp Hgb Conc 33.1 g/dL (32-36); Mean Corpuscular Hgb 28.7 pg (27.0-32.0); Mean Corpuscular Volume 86.6 fL (81-99); Mean Platelet Vol. 10.9 fl (6.2-12.0); Monocyte# 0.57 X10^3/uL; Monocyte% 6.8 % (0-10); NRBC Flagged by Analyzer 0 % (0-5); Neutrophil # 6.51 X10^3/uL (2.7-7.7); Neutrophil % 77.4 % (47-70); Platelet Count 170 K/mm3 (150-450); RBC Distribution Width CV 13.4 % (11.6-14.6); RBC Distribution Width SD 42.2 fl (35.1-43.9); Red Blood Count 3.07 M/mm3 (4.2-5.4); White Blood Count 8.4 K/mm3 (4.4-11.0)
[2021-02-16] MEDS: Insulin Lispro 100 UNIT/ML INSULN.PEN SC ×2 (08:36→11:43)
[2021-02-16] MEDS: Pantoprazole Sodium 40 MG Tablet PO (08:36)
[2021-02-16] MEDS: dilTIAZem CD 180 MG Capsule PO (08:36)
[2021-02-16] MEDS: Magnesium Chloride 64 MG Delay Rel.Tablet 128 MG PO ×2 (08:36→22:19)
[2021-02-16] MEDS: Aspirin 81 MG TAB.CHEW PO (08:36)
[2021-02-16] MEDS: Insulin Lispro 100 UNIT/ML INSULN.PEN 8 UNIT SC ×3 (08:37→17:36)
[2021-02-16 09:21] LABS: Bedside Glucose 302 mg/dL (70-110)
--- NOTE | 2021-02-16 09:31 | CASEMGMT ---
Social Work SW received message that pt has been accepted at [facility]. SW met with pt and informed that her first three SNF choices [facility], [facility], [place] do not have beds available but [facility] does and would be able to accept. SW explained there are no other SNF options in [place] which was patient's preference. Pt stating she does not want to go to [facility]. SW explained [facility] is only option in [place] and reviewed SNF options outside of [place]. Pt refusing to make a decision at this time. SW informed pt that SW will be back in an hour for a decision and pt expresses understanding. SHARON Mueller
--- NOTE | 2021-02-16 09:35 | CASEMGMT ---
Addendum entered by Hue Pereira 02/16/21 10:49: SW met with pt to discuss SNF wishes. Pt stating she is agreeable to go to [facility] as she does not want to leave [place]. Phone call to Ann at [facility] and updated that pt plans on admission and requested precert be started at this time. Plan: [facility], pending precert SHARON Mueller Original Note: Social Work SW received message that pt has been accepted at [facility]. SW met with pt and informed her that [facility], [facility] do not have beds available but [facility] does and would be able to accept. SW explained there are no other SNF options in [place] which was patient's preference. Pt stating she does not want to go to [facility]. SW explained [facility] is only option in [place] and reviewed SNF options outside of [place]. Pt refusing to make a decision at this time. SW informed pt that SW will be back in an hour for a decision and pt expresses understanding. SHARON Mueller
[2021-02-16] MEDS: Ceftriaxone 1 GM/50 ML BAG IV (10:00)
[2021-02-16] MEDS: Pregabalin 75 MG Capsule PO ×2 (10:00→22:19)
--- NOTE | 2021-02-16 10:56 | PCM.PN.ORT ---
Subjective Subjective Patient seen and examined. Denies any new complaints. Has not been out of bed with therapy yet today. Denies fevers, chills, nausea vomiting, chest pain or shortness of breath. Objective Data Objective Data Vital Signs: Vital Signs Temp Pulse Resp BP Pulse Ox 99.1 F 90 16 130/77 H 98 02/16/21 08:30 02/16/21 08:30 02/16/21 08:30 02/16/21 09:57 02/16/21 08:30 Oxygen Flow Rate (L/min) 1 Oxygen Delivery Method Nasal Cannula Weight: 175 lb 0.752 oz Body Mass Index (BMI) 29.1 Intake & Output: Intake and Output for Last 24 Hours 02/14/21 02/15/21 02/16/21 23:59 23:59 23:59 Intake Total 1458.75 / 2058.75 1000 / 1350 400 / 400 Output Total 1125 / 1525 1025 / 1625 950 / 950 Balance 333.75 / 533.75 -25 / -275 -550 / -550 Lab / Micro Data Result Diagrams: 02/16/21 06:36 02/14/21 07:14 Labs: Laboratory Results - last 24 hr 02/13/21 16:34: Crossmatch See Detail 02/15/21 11:43: POC Glucose 160 H 02/15/21 17:17: POC Glucose 253 H 02/15/21 19:23: Hgb 9.6 L, Hct 29.1 L 02/15/21 22:45: POC Glucose 330 H 02/16/21 06:36: WBC 8.4, RBC 3.07 L, Hgb 8.8 L, Hct 26.6 L, MCV 86.6, MCH 28.7, MCHC 33.1, RDW Std Deviation 42.2, RDW Coeff of Chris 13.4, Plt Count 170, MPV 10.9, Immature Gran % (Auto) 1.500 H, Neut % (Auto) 77.4 H, Lymph % (Auto) 12.6 L, [place] % (Auto) 6.8, Eos % (Auto) 1.3, Baso % (Auto) 0.4, Absolute Neuts (auto) 6.5, Absolute Lymphs (auto) 1.06, Nucleated RBC % 0 02/16/21 08:33: POC Glucose 302 H Micro: Microbiology 02/13/21 16:12 Nasal Secretion SARS-CoV-2 Antigen (Rapid) - Final Radiography Diagnostic Testing: Radiology Impression Brain CT 02/15/21 09:55 IMPRESSION: Chronic involutional changes of the brain. N.B. : The above Results were Read Back by Angel Manley MD to NAOMY THOMAS and understanding confirmed on 02/15/2021 11:46:45 (ET). Electronically Signed: Angel Manley MD at 11:48 EST , Service support , ADDENDUM: 02/15/21 1155 IMPRESSION: Chronic involutional changes of the brain. N.B. : The above Results were Read Back by Angel Manley MD to NAOMY THOMAS and understanding confirmed on 02/15/2021 11:46:45 (ET). Electronically Signed: Angel Manley MD at 11:48 EST , Service support , Physical Exam Narrative General - A&Ox3, NAD. Left lower extremity -incisional dressings C/D/I. SILT Sural, Saphenous, SPN, DPN, Tibial N. distributions. DP, PT 2+. BCR. DF, PF, EHL 5/5. No calf TTP. Assessment & Plan Assessment/Plan (1) Closed intertrochanteric fracture of left hip: PLAN: POD#2 s/p left hip CMN -Hemoglobin stable at 8.8 status post blood transfusion. No active bleeding on exam or evidence of hematoma. - PT/OT WBAT LLE - Maintain dressing. Okay to remove postoperative day #3 and shower. Okay to leave open to air if no drainage at that time. -Anticipate nursing facility placement -Stable for discharge from my standpoint. Would recommend Lovenox upon discharge for 28 days. Plan to follow-up in my office 2-3 weeks. See above dressing change details. Continue weightbearing as tolerated left lower extremity. Please not hesitate to call if any questions or concerns arise.
[2021-02-16] MEDS: oxyCODONE 5 MG Tablet PO ×2 (11:45→20:32)
[2021-02-16 11:55] LABS: Bedside Glucose 201 mg/dL (70-110)
--- NOTE | 2021-02-16 15:31 | CASEMGMT ---
Social Work Pt called ASHANTI back into room asking if she could now go to [facility] instead of [facility]. Phone calls and VM left at [facility] at 1250, 1415 and 1530 to check on bed availability. No return phone calls at this time. ASHANTI did not cancel precert with [facility], as it is uncertain if [facility] has a bed or can accept pt. ASHANTI to await return call from [facility]. SHARON Mueller
[2021-02-16 17:45] LABS: Bedside Glucose 149 mg/dL (70-110)
--- NOTE | 2021-02-16 18:35 | PN.HOSP_ITS ---
Subjective Subjective Patient was seen and examined today, she does not complain of any shortness of breath or chest discomfort. We are currently awaiting placement in a usp facility for inpatient rehab services. Patient states she [facility] to go to [facility]. Patient's hemoglobin today was 8.8. Objective Data Objective Data Vital Signs: Vital Signs Temp Pulse Resp BP Pulse Ox 98.3 F 81 16 127/66 H 96 02/16/21 14:30 02/16/21 14:30 02/16/21 14:30 02/16/21 15:29 02/16/21 14:30 Oxygen Flow Rate (L/min) 2 Oxygen Delivery Method Room Air Weight: 79.4 kg Body Mass Index (BMI) 29.1 Intake & Output: Intake and Output for Last 24 Hours 02/14/21 02/15/21 02/16/21 23:59 23:59 23:59 Intake Total 1458.75 / 2058.75 1000 / 1350 400 / 400 Output Total 1125 / 1525 1025 / 1625 1300 / 1300 Balance 333.75 / 533.75 -25 / -275 -900 / -900 Lab / Micro Data Result Diagrams: 02/16/21 06:36 02/14/21 07:14 Labs: Laboratory Results - last 24 hr 02/13/21 16:34: Crossmatch See Detail 02/15/21 19:23: Hgb 9.6 L, Hct 29.1 L 02/15/21 22:45: POC Glucose 330 H 02/16/21 06:36: WBC 8.4, RBC 3.07 L, Hgb 8.8 L, Hct 26.6 L, MCV 86.6, MCH 28.7, MCHC 33.1, RDW Std Deviation 42.2, RDW Coeff of Chris 13.4, Plt Count 170, MPV 10.9, Immature Gran % (Auto) 1.500 H, Neut % (Auto) 77.4 H, Lymph % (Auto) 12.6 L, [place] % (Auto) 6.8, Eos % (Auto) 1.3, Baso % (Auto) 0.4, Absolute Neuts (auto) 6.5, Absolute Lymphs (auto) 1.06, Nucleated RBC % 0 02/16/21 08:33: POC Glucose 302 H 02/16/21 11:40: POC Glucose 201 H 02/16/21 17:12: POC Glucose 149 H Micro: Microbiology 02/13/21 22:20 Urine Catheter - [place] Urine Culture - Preliminary Presumptive E. coli 02/13/21 16:12 Nasal Secretion SARS-CoV-2 Antigen (Rapid) - Final Physical Exam Const alert, oriented x3, no apparent distress and healthy appearing General Appearance: cooperative, well kempt and well developed Orientation / Consciousness: awake, oriented to person, oriented to place and oriented to time HEENT normocephalic and head/scalp atraumatic Head and Scalp: normocephalic Eyes PERRL, EOMs intact bilaterally and conjunctivae normal Neck nuchal rigidity, supple, no JVD, thyroid normal and no carotid bruits General: trachea midline Resp normal respiratory effort, no retractions, no use of accessory muscles and clear to auscultation bilaterally Auscultation: Negative for rales, rhonchi or wheezes Cardio regular rate, regular rhythm, S1 normal heart sound, S2 normal heart sound, no murmurs, no rub and no gallops GI normal to inspection, nondistended, normoactive bowel sounds, soft to palpation, non-tender and non-distended Extremity no clubbing, cyanosis or edema Skin no rashes or lesions noted General Skin Exam: no breakdown Neuro oriented x3, CN's II-XII intact bilaterally, no focal motor deficits and no sensory deficits noted Sensorium / Orientation: awake and alert Speech: speech normal Psych thought process normal and affect normal Assessment & Plan Assessment/Plan (1) Closed intertrochanteric fracture of left hip: PLAN: 1. Left intertrochanteric hip fracture-postop day #2, we are awaiting placement in a usp facility for inpatient rehab services, PT and OT are continuing to see the patient #2 acute E. coli cystitis-patient has a low numbers of E. coli in her urine culture, I have elected to change the patient's IV antibiotics to p.o. antibiotics at this time. #3 essential hypertension #4 type 2 diabetes-patient's blood sugar will be monitored, sliding scale insulin will be given #5 acute on chronic iron deficiency anemia as a expected result of left hip fracture requiring blood transfusion-patient has had 2 units of packed red blood cells, at this time she does not require any further transfusion. Charges/Coding Visit Charges Inpatient E&M: 89965 Subs Hosp L2
[2021-02-16] MEDS: 0.9% Saline Lock 10 ML Syringe IV (20:19)
[2021-02-16] MEDS: Atorvastatin Calcium 40 MG Tablet PO (22:17)
[2021-02-16 22:21] LABS: Bedside Glucose 264 mg/dL (70-110)
[2021-02-17] MEDS: oxyCODONE 5 MG Tablet PO ×3 (01:13→11:57)
[2021-02-17 02:00] VITALS: BP 111/68; PULSE 74; RESP 18; TEMP 36.8; O2SAT 97
[2021-02-17] MEDS: Enoxaparin 40 MG/0.4 ML Syringe SC (05:18)
[2021-02-17] MEDS: cloNIDine HCl 0.1 MG Tablet 0.3 MG PO ×2 (05:18→13:00)
[2021-02-17] MEDS: Cephalexin 500 MG Capsule PO ×2 (05:19→12:59)
[2021-02-17] MEDS: Acetaminophen 325 MG Tablet 650 MG PO (05:20)
[2021-02-17 07:25] VITALS: O2SAT 97
[2021-02-17] MEDS: Insulin Lispro 100 UNIT/ML INSULN.PEN 8 UNIT SC (07:51)
[2021-02-17] MEDS: Aspirin 81 MG TAB.CHEW PO (07:51)
[2021-02-17] MEDS: Insulin Lispro 100 UNIT/ML INSULN.PEN SC (07:52)
[2021-02-17 08:00] VITALS: BP 139/82; PULSE 75; RESP 18; TEMP 36.3; O2SAT 96
--- NOTE | 2021-02-17 09:29 | CASEMGMT ---
Addendum entered by Hue Pereira 02/17/21 11:11: Social Work Pt ready for discharge. 7000 convalescent stay form completed in [facility] system. Orders faxed to [facility]. Transportation arranged with [facility] ambulance for 1245 pickup. Phone call to nAn at [facility] and updated on d/c time. SW attempted to meet with pt to inform of d/c time but pt sleeping soundly. SW offered to call pt significant other previously and pt refused. Nursing updated on d/c plan. SHARON Mueller Original Note: Social Work SW received message from [facility] that precert has been obtained. SW spoke with physician who states pt is medically ready for discharge today. SW met with pt and explained that [facility] did not answer calls yesterday although SW did call three times. Precert has been obtained with insurance for admission to [facility]. Pt is disappointed as she would prefer not to go to [facility]. SW offered to have her name placed on waiting list at [facility] as this is a sister facility of [facility] and pt first choice. Pt is agreeable to discharge to [facility] with name on waitlist at [facility] for facility to facility transfer when bed becomes available. Phone call to Ann at [facility] and informed about desire for name on waitlist for [facility] and Ann is able to do this. Pt updated and agreeable to discharge. Physician aware. Plan: [facility], Skilled level of care under convalecent stay. SHARON Mueller
--- NOTE | 2021-02-17 09:49 | PCM.TXEXTCAR ---
Diet 02/15/21 09:26 Diet: Carbohydrate Controlled 1800 Food consistency:: Regular Liquid Consistency:: Regular/Thin Is pt able to select menu?: Yes Routine Orders/Code Status Routine Lab Work: CBC (In 1 week) Code Status: Full Code Wound(s) lt hip: Wound Type: Surgical Incision Therapies Weight Bearing: Weight bearing as tolerated Problem/Diagnosis (1) Closed intertrochanteric fracture of left hip: Status: Acute (2) Chronic anemia: Status: Chronic Comment: Iron deficiency anemia (3) Essential hypertension: Status: Chronic (4) HLD (hyperlipidemia): Status: Chronic (5) Type II diabetes mellitus: Status: Chronic (6) UTI (urinary tract infection): Status: Acute Comment: E. coli (7) Chronic kidney disease (CKD) stage G3a/A2, moderately decreased glomerular filtration rate (GFR) between 45-59 mL/min/1.73 square meter and albuminuria creatinine ratio between 30-299 mg/g: Status: Chronic Allergies/Procedures Done in Hospital Allergies metformin Adverse Reaction (Verified 02/13/21 15:27) Diarrhea Procedures: - (Repair of closed intertrochanteric fracture of the left hip with insertion of intramedullary nail left femur on 02/14/2021) Type of Care/Length of Stay Estimated LOS: Convalescent Care Less Than 30 days Type of Care Needed: Skilled Rehab Potential: Good Prognosis: Good Additional Orders/Day of Discharge H&P will serve as current which was dated: 02/13/21 Day of Discharge: 02/17/21 Discharge Plan Admission Admit Date/Time: 02/13/21 17:37 Primary Reason for Your Visit: Left hip intertrochanteric fracture Attending Provider: Ravi Walker Primary Care Provider: Dennys Serrano Consulting Providers: Mauro King Discharge Orders/Prescriptions Prescriptions: New insulin lispro [Humalog KwikPen Insulin] 100 unit/mL Insulin Pen 10 unit subcut TIDCM Qty: 0 RF: 0 acetaminophen [Tylenol] 325 mg Tablet 650 mg PO Q6H PRN PRN (Reason: Pain Score 1-3 /Temp>100.7) Qty: 0 RF: 0 polyethylene glycol 3350 17 gram Powder In Packet 17 g PO DAILY PRN PRN (Reason: Constipation) Qty: 1 RF: 0 cephalexin 500 mg Capsule 500 mg PO Q8 Qty: 0 RF: 0 oxycodone 5 mg Tablet 5 mg PO Q4H PRN PRN (Reason: Pain Score 4-10) 7 Days Qty: 20 RF: 0 enoxaparin 40 mg/0.4 mL Syringe 40 mg subcut DAILY@0600 Qty: 0 RF: 0 cyclobenzaprine 5 mg Tablet 5 mg PO TID PRN PRN (Reason: spasm) Qty: 0 RF: 0 pregabalin 75 mg Capsule 75 mg PO BID 7 Days Qty: 28 RF: 0 Continued diltiazem HCl 180 MG capsule 180 mg PO DAILY RF: 0 ondansetron 4 MG tablet 4 mg PO Q6H PRN (Reason: Nausea) RF: 0 insulin glargine 100 UNITS/ML insulin pen 20 units subcut QHS RF: 0 pantoprazole 40 MG tablet 40 mg PO DAILY RF: 0 atorvastatin 40 MG tablet 40 mg PO QHS RF: 0 aspirin 81 MG tablet,chewable 81 mg PO DAILY@0800 RF: 0 clonidine HCl 0.3 MG tablet 0.3 mg PO TID 30 Days Qty: 90 RF: 1 Discontinued polyethylene glycol 3350 17 gram/dose powder 17 g PO DAILY PRN PRN (Reason: Constipation) RF: 0 magnesium oxide 400 MG tablet 400 mg PO BID RF: 0 insulin lispro 100 UNIT/ML insulin pen See Protocol unit SQ TIDCM RF: 0 tramadol 50 MG tablet 50 mg PO BID RF: 0 insulin lispro 100 UNIT/ML insulin pen 3 unit subcut TIDCM RF: 0 pregabalin 75 mg capsule 75 mg PO BID RF: 0 Referrals / Follow Up: Mauro King DO [STAFF PHYSICIAN] - See Referral Note (In 2 weeks) Dennys Serrano MD [Primary Care Provider] - Disposition Disposition (needs filled in before D/C Order can be placed): [facility] Facility
[2021-02-17 09:51] LABS: Bedside Glucose 230 mg/dL (70-110)
--- NOTE | 2021-02-17 10:05 | DS.PCM_ITS ---
Documented by User: JUAN MANUEL Roldan 02/17/21 10:15 Providers Date of Admission: 02/13/21 Primary Care Physician: Dr. Dennys Serrano MD Consultations 02/13/21 18:35 Consult: Orthopedics Routine Consulting Provider: Mauro King Reason for Consult: left hip fracute EMERGENT Consult: No MD Notified: Yes Date Notified: 02/13/21 Time Notified: 17:00 Method of Notification: Verbal Reason For Visit: LEFT HIP FRACTURE Diagnosis Discharge Diagnosis (1) Closed intertrochanteric fracture of left hip: Status: Acute Code(s): S72.142A - Displaced intertrochanteric fracture of left femur, initial encounter for closed fracture (2) Chronic anemia: Status: Chronic Code(s): D64.9 - Anemia, unspecified (3) Essential hypertension: Status: Chronic Code(s): I10 - Essential (primary) hypertension (4) HLD (hyperlipidemia): Status: Chronic Code(s): E78.5 - Hyperlipidemia, unspecified (5) Type II diabetes mellitus: Status: Chronic Code(s): E11.9 - Type 2 diabetes mellitus without complications Qualifiers: Diabetes mellitus complication detail: with polyneuropathy Diabetes mellitus complication status: with neurologic complications Diabetes mellitus longterm insulin use: unspecified longterm insulin use status Qualified Code(s): E11.42 - Type 2 diabetes mellitus with diabetic polyneuropathy Medications at Discharge Home Medications diltiazem HCl 180 mg PO DAILY 12/17/18 insulin glargine 20 units SUBCUT QHS 12/17/18 ondansetron 4 mg PO Q6H PRN 12/17/18 aspirin 81 mg PO DAILY@0800 12/15/19 atorvastatin 40 mg PO QHS 12/15/19 pantoprazole 40 mg PO DAILY 12/15/19 clonidine HCl 0.3 mg PO TID 30 Days #90 tab 12/19/19 acetaminophen [Tylenol] 650 mg PO Q6H PRN PRN #0 tab 02/17/21 cephalexin 500 mg PO Q8 #0 cap 02/17/21 cyclobenzaprine 5 mg PO TID PRN PRN #0 tab 02/17/21 enoxaparin 40 mg SUBCUT DAILY@0600 #0 ml 02/17/21 insulin lispro [Humalog KwikPen Insulin] 10 unit SUBCUT TIDCM #0 ml 02/17/21 oxycodone 5 mg PO Q4H PRN PRN 7 Days #20 tab 02/17/21 polyethylene glycol 3350 17 g PO DAILY PRN PRN #1 ea 02/17/21 pregabalin 75 mg PO BID 7 Days #28 cap 02/17/21 Hospital Course Operations - (Left hip nailing) Procedures EKG Summary of Care Provided Minutes Spent on Discharge: 35 Hospital Course: Patient is a 60-year-old female who presented on with a left hip fracture. Patient underwent surgery where a intramedullary nail was placed in the left femur with Dr. King. Patient has received PT and OT while she is here and will continue needing PT and OT upon discharge. Patient was approved to go to [facility] for further PT and OT. Patient was also noted to have a urinary tract infection and will be discharged on Keflex for 7 total days of antibiotics. Physical Exam Const alert and oriented x3 General Appearance: uncooperative HEENT normocephalic and head/scalp atraumatic Eyes conjunctivae normal and no scleral icterus Neck supple General: trachea midline Resp normal respiratory effort, normal air movement and clear to auscultation bilaterally Cardio regular rate, regular rhythm, S1 normal heart sound, S2 normal heart sound and peripheral pulses 2+ throughout GI normal to inspection, nondistended, normoactive bowel sounds, soft to palpation and non-tender Extremity normal capillary refill and no clubbing, cyanosis or edema Extremity Narrative: Patient has localized ecchymosis and tenderness to left hip with palpation Skin skin turgor normal Skin Narrative: Surgical wound to left hip, dressing dry and intact incision not visualized at this time General Skin Exam: no breakdown Lesions: no lesions Rashes: no rashes Neuro no focal motor deficits and no sensory deficits noted Speech: speech normal Motor Exam: general weakness Psych Activity / Motor Behavior: avoids eye contact Speech: slow Mood & Affect: flat affect Thought Content: normal thought content Weight / BMI Weight Weight: 175 lb 0.752 oz Body Mass Index (BMI) 29.1 ABG / Lab / Microbiology Data Result Diagrams: 02/16/21 06:36 02/14/21 07:14 Laboratory: Laboratory Results - last 24 hr 02/16/21 11:40: POC Glucose 201 H 02/16/21 17:12: POC Glucose 149 H 02/16/21 22:13: POC Glucose 264 H 02/17/21 07:43: POC Glucose 230 H Microbiology: Microbiology 02/13/21 22:20 Urine Catheter - Howard Urine Culture - Final Presumptive E. coli 02/13/21 16:12 Nasal Secretion SARS-CoV-2 Antigen (Rapid) - Final D/C Instructions Discharge Diet: Low fat / Low cholesterol and 1800 Calorie Control Diet Discharge Activity: May Shower Weight Bearing Status: Weight bearing as tolerated Keep extremity elevated above heart level: Left Leg Call your doctor if your incision/area has: Continuous Slow Oozing, Sudden Increased Bleeding, Increased Pain/ Swelling, Increased Redness, Foul Smelling Discharge and Swelling at the incision site Call your doctor if you observe: Fever of 101 or Higher Remove Dressing in: 1 day (Okay to leave incision open to air if not draining) Cleanse incision/area with: Soap & Water Please Follow Up With: Mauro King DO When: 2-3 weeks Meaningful Use Info Meaningful Use Diagnoses (Choose all that apply): None applicable Discharge Plan Admission Admit Date/Time: 02/13/21 17:37 Primary Reason for Your Visit: Left hip intertrochanteric fracture Attending Provider: Ravi Walker Primary Care Provider: Dennys Serrano Consulting Providers: Mauro King Discharge Orders/Prescriptions Prescriptions: New insulin lispro [Humalog KwikPen Insulin] 100 unit/mL Insulin Pen 10 unit subcut TIDCM Qty: 0 RF: 0 acetaminophen [Tylenol] 325 mg Tablet 650 mg PO Q6H PRN PRN (Reason: Pain Score 1-3 /Temp>100.7) Qty: 0 RF: 0 polyethylene glycol 3350 17 gram Powder In Packet 17 g PO DAILY PRN PRN (Reason: Constipation) Qty: 1 RF: 0 cephalexin 500 mg Capsule 500 mg PO Q8 Qty: 0 RF: 0 oxycodone 5 mg Tablet 5 mg PO Q4H PRN PRN (Reason: Pain Score 4-10) 7 Days Qty: 20 RF: 0 enoxaparin 40 mg/0.4 mL Syringe 40 mg subcut DAILY@0600 Qty: 0 RF: 0 cyclobenzaprine 5 mg Tablet 5 mg PO TID PRN PRN (Reason: spasm) Qty: 0 RF: 0 pregabalin 75 mg Capsule 75 mg PO BID 7 Days Qty: 28 RF: 0 Continued diltiazem HCl 180 MG capsule 180 mg PO DAILY RF: 0 ondansetron 4 MG tablet 4 mg PO Q6H PRN (Reason: Nausea) RF: 0 insulin glargine 100 UNITS/ML insulin pen 20 units subcut QHS RF: 0 pantoprazole 40 MG tablet 40 mg PO DAILY RF: 0 atorvastatin 40 MG tablet 40 mg PO QHS RF: 0 aspirin 81 MG tablet,chewable 81 mg PO DAILY@0800 RF: 0 clonidine HCl 0.3 MG tablet 0.3 mg PO TID 30 Days Qty: 90 RF: 1 Discontinued polyethylene glycol 3350 17 gram/dose powder 17 g PO DAILY PRN PRN (Reason: Constipation) RF: 0 magnesium oxide 400 MG tablet 400 mg PO BID RF: 0 insulin lispro 100 UNIT/ML insulin pen See Protocol unit SQ TIDCM RF: 0 tramadol 50 MG tablet 50 mg PO BID RF: 0 insulin lispro 100 UNIT/ML insulin pen 3 unit subcut TIDCM RF: 0 pregabalin 75 mg capsule 75 mg PO BID RF: 0 Referrals / Follow Up: Mauro King DO [STAFF PHYSICIAN] - See Referral Note (In 2 weeks) Dennys Serrano MD [Primary Care Provider] - Disposition Disposition (needs filled in before D/C Order can be placed): Long Term Facility Documented by User: Dr. Ravi Walker DO 02/17/21 10:21 Providers Date of Admission: 02/13/21 Reason For Visit: LEFT HIP FRACTURE Diagnosis Discharge Diagnosis (1) Chronic kidney disease (CKD) stage G3a/A2, moderately decreased glomerular filtration rate (GFR) between 45-59 mL/min/1.73 square meter and albuminuria creatinine ratio between 30-299 mg/g: Status: Chronic Code(s): N18.31 - Chronic kidney disease, stage 3a Medications at Discharge Home Medications diltiazem HCl 180 mg PO DAILY 12/17/18 insulin glargine 20 units SUBCUT QHS 12/17/18 ondansetron 4 mg PO Q6H PRN 12/17/18 aspirin 81 mg PO DAILY@0800 12/15/19 atorvastatin 40 mg PO QHS 12/15/19 pantoprazole 40 mg PO DAILY 12/15/19 clonidine HCl 0.3 mg PO TID 30 Days #90 tab 12/19/19 acetaminophen [Tylenol] 650 mg PO Q6H PRN PRN #0 tab 02/17/21 cephalexin 500 mg PO Q8 #0 cap 02/17/21 cyclobenzaprine 5 mg PO TID PRN PRN #0 tab 02/17/21 enoxaparin 40 mg SUBCUT DAILY@0600 #0 ml 02/17/21 insulin lispro [Humalog KwikPen Insulin] 10 unit SUBCUT TIDCM #0 ml 02/17/21 oxycodone 5 mg PO Q4H PRN PRN 7 Days #20 tab 02/17/21 polyethylene glycol 3350 17 g PO DAILY PRN PRN #1 ea 02/17/21 pregabalin 75 mg PO BID 7 Days #28 cap 02/17/21 ABG / Lab / Microbiology Data Result Diagrams: 02/16/21 06:36 02/14/21 07:14 Discharge Plan Admission Admit Date/Time: 02/13/21 17:37 Primary Reason for Your Visit: Left hip intertrochanteric fracture Attending Provider: Ravi Walker Primary Care Provider: Dennys Serrano Consulting Providers: Mauro King Discharge Orders/Prescriptions Prescriptions: New insulin lispro [Humalog KwikPen Insulin] 100 unit/mL Insulin Pen 10 unit subcut TIDCM Qty: 0 RF: 0 acetaminophen [Tylenol] 325 mg Tablet 650 mg PO Q6H PRN PRN (Reason: Pain Score 1-3 /Temp>100.7) Qty: 0 RF: 0 polyethylene glycol 3350 17 gram Powder In Packet 17 g PO DAILY PRN PRN (Reason: Constipation) Qty: 1 RF: 0 cephalexin 500 mg Capsule 500 mg PO Q8 Qty: 0 RF: 0 oxycodone 5 mg Tablet 5 mg PO Q4H PRN PRN (Reason: Pain Score 4-10) 7 Days Qty: 20 RF: 0 enoxaparin 40 mg/0.4 mL Syringe 40 mg subcut DAILY@0600 Qty: 0 RF: 0 cyclobenzaprine 5 mg Tablet 5 mg PO TID PRN PRN (Reason: spasm) Qty: 0 RF: 0 pregabalin 75 mg Capsule 75 mg PO BID 7 Days Qty: 28 RF: 0 Continued diltiazem HCl 180 MG capsule 180 mg PO DAILY RF: 0 ondansetron 4 MG tablet 4 mg PO Q6H PRN (Reason: Nausea) RF: 0 insulin glargine 100 UNITS/ML insulin pen 20 units subcut QHS RF: 0 pantoprazole 40 MG tablet 40 mg PO DAILY RF: 0 atorvastatin 40 MG tablet 40 mg PO QHS RF: 0 aspirin 81 MG tablet,chewable 81 mg PO DAILY@0800 RF: 0 clonidine HCl 0.3 MG tablet 0.3 mg PO TID 30 Days Qty: 90 RF: 1 Discontinued polyethylene glycol 3350 17 gram/dose powder 17 g PO DAILY PRN PRN (Reason: Constipation) RF: 0 magnesium oxide 400 MG tablet 400 mg PO BID RF: 0 insulin lispro 100 UNIT/ML insulin pen See Protocol unit SQ TIDCM RF: 0 tramadol 50 MG tablet 50 mg PO BID RF: 0 insulin lispro 100 UNIT/ML insulin pen 3 unit subcut TIDCM RF: 0 pregabalin 75 mg capsule 75 mg PO BID RF: 0 Referrals / Follow Up: Mauro King DO [STAFF PHYSICIAN] - See Referral Note (In 2 weeks) Dennys Serrano MD [Primary Care Provider] - Disposition Disposition (needs filled in before D/C Order can be placed): Long Term Facility Charges/Coding Addendum Addendum: Patient was seen and examined today independently of Elham Barillas, she appears stable for discharge at this time and we have the same confirmation that the [facility] has a bed for her. On examination she appeared older than her stated age, she does not appear to be in any distress. Vital signs as documented. Skin warm and dry and without overt rashes. Neck without JVD, thyroid appears normal, trachea is midline, neck is supple. Lungs clear, normal air movement was noted. Heart exam notable for regular rhythm, normal sounds and absence of murmurs, rubs or gallops. Abdomen unremarkable and without evidence of organomegaly, masses, or abdominal aortic enlargement, bowel sounds are present in all 4 quadrants, no abdominal tenderness was noted. Extremities nonedematous, no cyanosis was noted, no clubbing was noted. Neuro: Cranial nerves II through XII are grossly intact, no focal motor deficits were noted, sensation to light touch and pinprick is intact, motor exam 5/5 throughout. Psych: Patient is alert and oriented x3, she does not appear anxious or depressed, she does not appear agitated, her affect is flat Patient appears to be stable for discharge to an extended care facility, I reviewed Elham Barillas's discharge summary and endorse it.
[2021-02-17] MEDS: Magnesium Chloride 64 MG Delay Rel.Tablet 128 MG PO (10:07)
[2021-02-17] MEDS: dilTIAZem CD 180 MG Capsule PO (10:07)
[2021-02-17] MEDS: Pantoprazole Sodium 40 MG Tablet PO (10:08)
[2021-02-17] MEDS: Pregabalin 75 MG Capsule PO (10:11)
[2021-02-17 11:55] LABS: Bedside Glucose 97 mg/dL (70-110)
--- NOTE | 2021-02-20 08:53 | CASEMGMT ---
Pt called in to the hospital, asking about getting transferred to [facility]. SW called Ann at [facility], she states pt is on the list to get transferred to the [facility], she states pt can call her. SW called pt back, explained did call [facility] and spoke w/Ann, let her know pt wants to transfer to [facility] and Ann states she is on the list. Pt asked about going home w/home care instead of transferring. SW explained she will need to follow up w/the media planner at [facility], and gave her Ann's number to call her and follow up. Pt took Ann's number to call her. VICENTE Vicente
== END 2021-02-17 14:50 | DRG 481 ==
LOC: ED 17:24 → MS2 17:42
PROVIDERS: Anesthesiology; Family Medicine; Physician Assistant; Student in an Organized Health Care Education/Training Program; Admitting Provider Internal Medicine; Emergency Provider Emergency Medicine; PCP Family Medicine; Visit Provider Internal Medicine
PROC: 0QS706Z Reposition Left Upper Femur with Intramedullary Internal Fixation Device, Open Approach (ICD-10-PCS; CPT 27245; principal; 2021-02-14 12:30)
DX: S72.142A Displaced intertrochanteric fracture of left femur, initial encounter for closed fracture (principal); D62 Acute posthemorrhagic anemia; N39.0 Urinary tract infection, site not specified; G93.49 Other encephalopathy; W01.0XXA Fall on same level from slipping, tripping and stumbling without subsequent striking against object, initial encounter; D64.9 Anemia, unspecified; E78.5 Hyperlipidemia, unspecified; I10 Essential (primary) hypertension; E11.42 Type 2 diabetes mellitus with diabetic polyneuropathy; D50.9 Iron deficiency anemia, unspecified; Z66 Do not resuscitate; G89.4 Chronic pain syndrome; M81.0 Age-related osteoporosis without current pathological fracture; Z23 Encounter for immunization; Z79.4 Long term (current) use of insulin; Z83.3 Family history of diabetes mellitus; Z82.49 Family history of ischemic heart disease and other diseases of the circulatory system; Z90.49 Acquired absence of other specified parts of digestive tract; Z79.82 Long term (current) use of aspirin
CPT/HCPCS: 36415; 70450; 71045; 73501; 73502; 76000; 80048; 80053; 80076; 81001; 82962; 83036; 83540; 83550; 84100; 85014; 85018; 85025; 85027; 85610; 85730; 86850; 86900; 86901; 86920; 87086; 87088; 87186; 87426; 93005; 97110; 97162; 97166; 97530; 97535; 99251; 99285; C1713; C1776; G0008; J7030; J7040; J7050; J7120; P9040; 90686; A4216; G0463; J2405; J2916

== ENCOUNTER 2021-05-15 09:22 | Emergency (ER) | payer MEDICARE, MEDICAID, SELFPAY ==
[2021-05-15 09:23] VITALS: BP 180/94; PULSE 87; RESP 16; TEMP 35.4; O2SAT 99; BMI 29.9
--- NOTE | 2021-05-15 09:52 | ED.VIS.LOWEX ---
HPI History of Present Illness Chief Complaint: Wound Informant: patient and spouse/S.O. Onset/Context/Timing Onset: Days Context: Gradual Onset Timing: Continuous Current Severity: Mild Maximum Severity: Mild Associated Symptoms Associated Symptoms: Negative for Parasthesia, Weakness and Loss of Funtion Narrative Narrative: 60-year-old female history of diabetes, hypertension and left hip replacement secondary to hip fracture in January of last year. Patient's had a prior wound on her left heel saw podiatry and the wound care center. States that she been putting more pressure on her heel due to the recent hip surgery and has reopened the wound. She denies any fever. There is been some blood from the wound and a small amount of pus. Prior similar symptoms: Yes Recent Illness/Hospitalization: No PFSH PFSH Medical History Cardiology follow-up encounter Chronic pain syndrome Closed intertrochanteric fracture of left hip Diabetes Dietary restriction Essential hypertension Excessive bleeding Fall Gastric reflux High cholesterol History of echocardiogram History of edema History of orthostatic hypotension History of stress test HLD (hyperlipidemia) HTN (hypertension) Hx of orthostatic hypotension Injury of head and neck Insulin dependent diabetes mellitus Low iron Malnutrition Migraine headache Migraine without aura Non-smoker Post-concussion syndrome Syncope Type II diabetes mellitus Vertigo Vomiting Wears glasses Home Medications diltiazem HCl 180 mg PO DAILY 12/17/18 [History Last Taken 02/13/21] insulin glargine 20 units SUBCUT QHS 12/17/18 [History Last Taken 02/12/21] ondansetron 4 mg PO Q6H PRN 12/17/18 [History Last Taken 1 Week Ago ~12/08/19] aspirin 81 mg PO DAILY@0800 12/15/19 [History Last Taken 02/12/21] atorvastatin 40 mg PO QHS 12/15/19 [History Last Taken 02/12/21] pantoprazole 40 mg PO DAILY 12/15/19 [History Last Taken 02/13/21] clonidine HCl 0.3 mg PO TID 30 Days #90 tab 12/19/19 [Rx Last Taken 02/13/21] acetaminophen [Tylenol] 650 mg PO Q6H PRN PRN #0 tab 02/17/21 [Rx Last Taken Unknown] cephalexin 500 mg PO Q8 #0 cap 02/17/21 [Rx Last Taken Unknown] cyclobenzaprine 5 mg PO TID PRN PRN #0 tab 02/17/21 [Rx Last Taken Unknown] enoxaparin 40 mg SUBCUT DAILY@0600 #0 ml 02/17/21 [Rx Last Taken Unknown] insulin lispro [Humalog KwikPen Insulin] 10 unit SUBCUT TIDCM #0 ml 02/17/21 [Rx Last Taken Unknown] oxycodone 5 mg PO Q4H PRN PRN 7 Days #20 tab 02/17/21 [Rx Last Taken Unknown] polyethylene glycol 3350 17 g PO DAILY PRN PRN #1 ea 02/17/21 [Rx Last Taken Unknown] pregabalin 75 mg PO BID 7 Days #28 cap 02/17/21 [Rx Last Taken Unknown] cephalexin 500 mg PO Q6H 10 Days #40 cap 05/15/21 [Rx Last Taken Unknown] Allergy/AdvReac Type Severity Reaction Status Date / Time metformin AdvReac Diarrhea Verified 05/15/21 09:24 Family History Mother Hypertension Father Cancer lymphoma, leukemia Emphysema of lung Grandmother Diabetes Surgical History History of cholecystectomy History of esophagogastroduodenoscopy (EGD) History of mandibular surgery Hx of colonoscopy Social History Smoking Status: Never smoker alcohol intake: never substance use type: does not use ROS ROS ED ROS Narrative Denies recent illness. No fever. Review of Systems ROS Unobtainable: Denies due to encephalopathy Constitutional Constitutional ED: Denies chills, fever(s) or subjective Eyes Eyes: Denies change in vision ENT ENT ED: Denies ear pain Cardiovascular Cardiovascular: Denies chest pain Respiratory/Chest Respiratory/Chest: Denies cough or dyspnea Gastrointestinal Gastrointestinal: Denies abdominal pain, nausea or vomiting Genitourinary Genitourinary ED: Denies dysuria Integumentary Denies rash Neurologic Neurologic: Denies headache(s) Psychiatric Psychiatric: Denies depression Endocrine Endocrinology: Denies polyuria Hematologic/Lymphatic Hematologic/Lymphatic: Denies easy bruising Allergic/Immunologic Allergic/Immunologic ED: Denies urticaria EXAM Physical Exam Narrative Exam Narrative: 32-year-old female no acute distress. Vital signs stable afebrile does not look septic or toxic. Initial blood pressure 180/94. HEENT exam unremarkable. Lungs are clear. Heart regular rhythm. Abdomen soft nontender. Moving all 4 extremities. Left heel has a boggy wound. There is breakdown of the skin. There is fluctuance. There is no substantial anaerobic smell. She is able to wiggle her toes. Dorsi plantarflexion is intact. There is no bony deformity. No redness. No warmth. No lymphangitic streaking. Const Vital Signs: 05/15/21 09:23 05/15/21 10:09 Temperature 95.7 F L 95.7 F L Temperature Source Temporal Temporal Pulse Rate 87 87 Respiratory Rate 16 16 Blood Pressure 180/94 H 180/94 H Blood Pressure Mean 122 122 Pulse Ox 99 99 Oxygen Delivery Method Room Air Room Air Positive well nourished and well developed; Negative for cachectic, contractures or unkempt General Appearance ED: well developed and NAD; Negative for unkempt, cachectic or contractures Nutritional Appearance: Negative for cachectic HEENT Reports moist mucous membranes normocephalic and atraumatic Eyes PERRL Neck full ROM and supple Thyroid: Negative for tender Chest Wall inspection of chest normal and palpation of chest normal Resp normal respiratory effort, no retractions and clear to auscultation bilaterally Auscultation: Negative for rales, rhonchi or wheezes Cardio regular rate, regular rhythm, S1 normal heart sound, S2 normal heart sound and no murmurs GI non-tender, non-distended and no masses Auscultation: normoactive bowel sounds Palpation: soft; Negative for tender, guarding or rebound tenderness present Extremity normal to inspection and full ROM Extremity Narrative: Except left heel breakdown of skin. Boggy. Fluctuant. No active bleeding. No pus at this time. No cellulitis. No lymphangitic streaking. Dorsi plantarflexion intact. Able to wiggle her toes. General Extremety ED: Negative for cyanosis or edema General Extremity: Negative for cyanosis or edema Neuro oriented x3 and moves all extremities Sensorium / Orientation: alert, oriented to person, oriented to place and oriented to time Motor Exam: strength 5/5 throughout Psych mental status grossly normal Appearance: Negative for unkempt Mood & Affect: Negative for anxious Skin No no wounds Skin Narrative: Left heel wound. Acute on chronic. Lesions: no lesions Rashes: no rashes MDM MDM MDM Narrative Medical decision making narrative: Patient with acute on chronic left heel wound. X-ray being obtained. Patient be started on Keflex and referred back to the wound care center and her leakage tester. Repeat exam unchanged. Patient be discharged home on antibiotic Keflex and outpatient follow-up with wound care center and her leakage tester. Radiography Diagnostic Testing: Clinical Impression(s) from Imaging Studies Ankle X-Ray 05/15/21 10:20 IMPRESSION: Plantar spur. Diffuse soft tissue swelling. Electronically Signed: Angel Manley MD at 10:51 EST , Ankle x-ray, 3 views, inter by myself and radiologist shows chronic changes. Soft tissue swelling. No obvious signs of osteomyelitis. Discharge Plan Triage Chief Complaint: Wound ED Provider: Mitesh Magana Dx/Rx/DC Orders Clinical Impression: Non-healing open wound of heel, Type II diabetes mellitus Prescriptions: New cephalexin 500 mg capsule 500 mg PO Q6H 10 Days Qty: 40 RF: 0 No Action diltiazem HCl 180 MG capsule 180 mg PO DAILY RF: 0 ondansetron 4 MG tablet 4 mg PO Q6H PRN (Reason: Nausea) RF: 0 insulin glargine 100 UNITS/ML insulin pen 20 units subcut QHS RF: 0 pantoprazole 40 MG tablet 40 mg PO DAILY RF: 0 atorvastatin 40 MG tablet 40 mg PO QHS RF: 0 aspirin 81 MG tablet,chewable 81 mg PO DAILY@0800 RF: 0 clonidine HCl 0.3 MG tablet 0.3 mg PO TID 30 Days Qty: 90 RF: 1 insulin lispro [Humalog KwikPen Insulin] 100 unit/mL Insulin Pen 10 unit subcut TIDCM Qty: 0 RF: 0 acetaminophen [Tylenol] 325 mg Tablet 650 mg PO Q6H PRN PRN (Reason: Pain Score 1-3 /Temp>100.7) Qty: 0 RF: 0 polyethylene glycol 3350 17 gram Powder In Packet 17 g PO DAILY PRN PRN (Reason: Constipation) Qty: 1 RF: 0 cephalexin 500 mg Capsule 500 mg PO Q8 Qty: 0 RF: 0 oxycodone 5 mg Tablet 5 mg PO Q4H PRN PRN (Reason: Pain Score 4-10) 7 Days Qty: 20 RF: 0 enoxaparin 40 mg/0.4 mL Syringe 40 mg subcut DAILY@0600 Qty: 0 RF: 0 cyclobenzaprine 5 mg Tablet 5 mg PO TID PRN PRN (Reason: spasm) Qty: 0 RF: 0 pregabalin 75 mg Capsule 75 mg PO BID 7 Days Qty: 28 RF: 0 Primary Care Provider: Dennys Serrano Referrals: Dennys Serrano MD [Primary Care Provider] - As Needed Activity Restrictions/Additional Instructions: Keep the heel clean and dressed. Change the dressing daily. Keflex antibiotic 1 pill 4 times a day. Call and follow-up both with the wound care center and your leakage tester to have further evaluation and treatment on your heel. This may need to be debrided. Return if fever, feeling worse or red streaks up your leg. Disposition Disposition: Home, Self Care
[2021-05-15] MEDS: Cephalexin 250 MG Capsule 500 MG PO (10:08)
[2021-05-15 10:09] VITALS: BP 180/94; PULSE 87; RESP 16; TEMP 35.4; O2SAT 99
--- NOTE | 2021-05-15 10:20 | RAD_ITS ---
STUDY: X-RAY - LEFT ANKLE REASON FOR EXAM: Female, 60 years old. Heal wound TECHNIQUE: 4 view(s) of the ankle. COMPARISON: None. FINDINGS: Normal visualized distal tibia and fibula. Normal medial and lateral malleoli. Normal tibiotalar articulation and ankle mortise. Plantar spur. The visualized subtalar, talonavicular, calcaneocuboid and tarsal articulations are normal. Diffuse soft tissue swelling. RAD/Ankle min 3 Views IMPRESSION: Plantar spur. Diffuse soft tissue swelling. Electronically Signed: Angel Manley MD at 10:51 EST ,
[2021-05-15 11:35] VITALS: PULSE 90; RESP 20
== END 2021-05-15 11:36 | disposition home or self-care (01) ==
LOC: ED 10:16
PROVIDERS: Emergency Provider Emergency Medicine; PCP Family Medicine; Visit Provider Emergency Medicine
DX: S91.309A Unspecified open wound, unspecified foot, initial encounter (principal); E11.9 Type 2 diabetes mellitus without complications; Z79.4 Long term (current) use of insulin; E78.5 Hyperlipidemia, unspecified; E78.00 Pure hypercholesterolemia, unspecified; I10 Essential (primary) hypertension; Z96.642 Presence of left artificial hip joint
CPT/HCPCS: 73610; 99282

== ENCOUNTER 2021-06-22 10:15 | Outpatient (RCR) | payer MEDICARE, MEDICAID, SELFPAY ==
--- NOTE | 2021-06-08 13:46 | PCM.WC.HP ---
History of Present Illness Date of Service: 06/08/21 Chief Complaint: left heel ulcer left ankle ulcer- healed History of Wound: In October 2019, patient had rubbing in shoes while shopping which led to a blister that developed into an ulceration. Patient was then seen by Dewey Amezquita.P.M. for wound care. Patient then became infected and was admitted to the hospital. Patient was noted to have OM on MRI. Patient wanted to avoid surgery so a intermediate frame tender course of appropriate IV antibiotics was the treatment chosen. Patient was also noted to have hyperglycemia and has worked with hospitalist and PCP to try to get better control. Blood sugar levels remain elevated. Patient also had LEAS obtained in the hospital which suggested patient had the proper blood flow to allow healing. Patient has since finished intermediate frame tender course of antibiotics. Patient has since been seen on a weekly basis in office with progression and regression of wound noted over the weeks. Patient has tried various dressing options including wet to dry and santyl. The most progress was noted with Santyl but patient ran out and was unable to refill due to insurance issues. During which time the wound regressed. She also has an offloading surgical shoe and offloading boot to relieve pressure. Patient care is henceforth being carried out at the wound care center. Patient not currently on any antibiotics. Patient has since began skin graft aplications significant improvement is been noted to her foot overall. Patient has finished epifix graft applications with some very small remaining wound noted to left heel. Patient has new wounds noted to bilateral third digits. The right 3rd digit wound has healed. Her left ankle ulcer remains healed Patient relates that ambulation is getting easier and she is rebuilding her strength slowly. She has not had any worsening of minor remaining heel wound since beginning ambulation again. 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 Her has been helping her change the dressings daily to the left heel. She presents to the wound care center today for continued care of her left heel ulceration. [facility] Medical History Cardiology follow-up encounter Chronic pain syndrome Closed intertrochanteric fracture of left hip Diabetes Dietary restriction Essential hypertension Excessive bleeding Fall Gastric reflux High cholesterol History of echocardiogram History of edema History of orthostatic hypotension History of stress test HLD (hyperlipidemia) HTN (hypertension) Hx of orthostatic hypotension Injury of head and neck Insulin dependent diabetes mellitus Low iron Malnutrition Migraine headache Migraine without aura Non-smoker Post-concussion syndrome Syncope Type II diabetes mellitus Vertigo Vomiting Wears glasses Home Medications diltiazem HCl 180 mg PO DAILY 12/17/18 [History Last Taken 02/13/21] insulin glargine 20 units SUBCUT QHS 12/17/18 [History Last Taken 02/12/21] ondansetron 4 mg PO Q6H PRN 12/17/18 [History Last Taken 1 Week Ago ~12/08/19] aspirin 81 mg PO DAILY@0800 12/15/19 [History Last Taken 02/12/21] atorvastatin 40 mg PO QHS 12/15/19 [History Last Taken 02/12/21] pantoprazole 40 mg PO DAILY 12/15/19 [History Last Taken 02/13/21] clonidine HCl 0.3 mg PO TID 30 Days #90 tab 12/19/19 [Rx Last Taken 02/13/21] acetaminophen [Tylenol] 650 mg PO Q6H PRN PRN #0 tab 02/17/21 [Rx Last Taken Unknown] cephalexin 500 mg PO Q8 #0 cap 02/17/21 [Rx Last Taken Unknown] cyclobenzaprine 5 mg PO TID PRN PRN #0 tab 02/17/21 [Rx Last Taken Unknown] enoxaparin 40 mg SUBCUT DAILY@0600 #0 ml 02/17/21 [Rx Last Taken Unknown] insulin lispro [Humalog KwikPen Insulin] 10 unit SUBCUT TIDCM #0 ml 02/17/21 [Rx Last Taken Unknown] oxycodone 5 mg PO Q4H PRN PRN 7 Days #20 tab 02/17/21 [Rx Last Taken Unknown] polyethylene glycol 3350 17 g PO DAILY PRN PRN #1 ea 02/17/21 [Rx Last Taken Unknown] pregabalin 75 mg PO BID 7 Days #28 cap 02/17/21 [Rx Last Taken Unknown] cephalexin 500 mg PO Q6H 10 Days #40 cap 05/15/21 [Rx Last Taken Unknown] Allergy/AdvReac Type Severity Reaction Status Date / Time metformin AdvReac Diarrhea Verified 02/14/22 09:24 Family History Mother Hypertension Father Cancer lymphoma, leukemia Emphysema of lung Grandmother Diabetes Surgical History History of cholecystectomy History of esophagogastroduodenoscopy (EGD) History of mandibular surgery Hx of colonoscopy Social History Smoking Status: Never smoker alcohol intake: never substance use type: does not use ROS Constitutional Constitutional: Denies chills, fatigue, fever(s), malaise or weakness Eyes Eyes: Denies change in vision, double vision or dry eyes ENT HEENT: Denies headache(s), nasal congestion, nasal discharge or sinus pain Cardiovascular Cardiovascular: Denies chest pain, fatigue or palpitations Respiratory/Chest Respiratory/Chest: Denies cough, productive cough, shortness of breath at rest or wheezing Gastrointestinal Gastrointestinal: Denies abdominal pain, constipation, diarrhea, nausea or vomiting Genitourinary Genitourinary: Denies dysuria, urinary frequency or urinary urgency Musculoskeletal Musculoskeletal: Denies joint pain, joint stiffness, joint swelling or tingling Integumentary Integumentary: Denies jaundice, lesions, pruritus or rash Neurologic Neurologic: Denies dizziness, numbness, seizures or tingling Psychiatric Psychiatric: Denies anxiety or depression Endocrine Endocrinology: Denies cold intolerance, heat intolerance or polydipsia Hematologic/Lymphatic Hematologic/Lymphatic: Denies easy bleeding or easy bruising Physical Exam Const alert, oriented x3 and no apparent distress General Appearance: cooperative and comfortable HEENT normocephalic Eyes General Eye: normal appearance of both eyes Neck General: normal visual inspection Lymph Lymphatic: no lymphadenopathy noted and no lymphedema noted Resp normal respiratory effort Cardio regular rate and regular rhythm Extremity General Extremity: edema Peripheral Pulses: Yes posterior tibial pulses present and dorsalis pedis pulses present Skin no rashes or lesions noted and skin turgor normal Wound Narrative: Left lower extremity heel decubitus ulceration. Ulceration site demonstrates pink wound base with scant fibrous tissue throughout the wound bed, serosanguineous drainage, and no localized erythema, no malodor, no purulent drainage. No palpable fluctuance noted to the left heel. Ulceration site does have scant yellow crusting covering wound bed and dried hyperkeratotic tissue about the margins. Left lower extremity anterior ankle wound secondary to bandaging. Wound demonstrates no localized signs of infection with beefy red granular base. Neuro oriented x3 Motor Exam: strength 5/5 throughout Debridement Note Debridement Note Wound debrided: Left plantar heel Laterality: Left Type of Debridement: Excisional debridement Anesthesia Used: 5% Lidocaine Gel Depth: in the subcutaneous layer Percentage of wound debrided: 100 Instrument Used: #15 blade Tissue Removed: Fibrous, devitalized subcutaneous, biofilm, slough Severity: Fat Layer Exposed Amount of bleeding with debridement: Mild Bleeding Controlled with: Pressure Patient tolerated procedure: Patient tolerated procedure well Post-Debridement Measurements and Additional Note: Post-Debridement Measurements/Treatment SAMARIA - Nurse 1 - General Ulcer Assessment Start: 06/08/21 10:22 Freq: Status: Active Protocol: MOOK Activity Type Activity Date Activity User E-Sign Co-Sign Detail Recorded Client Recorded Date Recorded By Document 06/08/21 10:23 JAUN [id number] 06/08/21 10:32 06/08/21 10:23 Pain Scale: 0-10 Numeric Is Patient Pain Free? Yes SAMARIA - Nurse 1 - General Ulcer Measurement Start: 06/08/21 10:22 Freq: Status: Active Protocol: Activity Type Activity Date Activity User E-Sign Co-Sign Detail Recorded Client Recorded Date Recorded By Document 06/08/21 10:23 JAUN [id number] 06/08/21 10:32 06/08/21 10:23 Wound Center Nurse 1 7-left posterior leg -Combined with other wound No -Current Size (cm) - Length 1.3 -Current Size (cm) - Width 2.0 -Current Size (cm) - Depth 0.1 -Total Square Cm 2.60 -Photo Taken Yes -Epithelialization Small 1-33% -Tunneling No -Undermining/Tunneling No -Circular Undermining No -Classification - Glasgow Grading ( Grade 2 Diabetic Ulcer) -Exudate Amt Medium -Exudate Type Serosanguineous -Wound Margin Flat & Intact -Granulation Amt Large (67-100%) -Granulation Quality Red -Slough/Fibrin Yes -Necrosis Amt Small (1-33%) -Necrotic Tissue Type Adherent Slough -Structure Exposed N/A -Texture (Bren-wound Skin Appearance) Assessed, Localized Edema -Moisture (Bren-wound Skin Appearance) Assessed,Dry/ Scaly -Color (Bren-wound Skin Appearance) Assessed -Temperature (Bren-wound Skin No Abnormality Appearance) (Pt Warm) -Tenderness on Palpation (Bren-wound No Skin Appearance) -Ulcer Cleansing Rinsed/ Irrigated with Saline -Anesthetic Used 5% Lidocaine Gel 6-left heel -Combined with other wound No -Current Size (cm) - Length 2.0 -Current Size (cm) - Width 3.3 -Current Size (cm) - Depth 0.1 -Total Square Cm 6.60 -Photo Taken Yes -Epithelialization Small 1-33% -Tunneling No -Undermining/Tunneling No -Circular Undermining No -Classification - Glasgow Grading ( Grade 2 Diabetic Ulcer) -Change in Wound Grade/Stage No -Exudate Amt Medium -Exudate Type Serosanguineous -Wound Margin Flat & Intact -Granulation Amt Medium (34-66%) -Granulation Quality [place] -Slough/Fibrin Yes -Necrosis Amt Medium (34-66%) -Necrotic Tissue Type Adherent Slough -Structure Exposed N/A -Texture (Rben-wound Skin Appearance) Assessed -Moisture (Bren-wound Skin Appearance) Assessed,Dry/ Scaly -Color (Bren-wound Skin Appearance) Assessed -Temperature (Bren-wound Skin No Abnormality Appearance) (Pt Warm) -Tenderness on Palpation (Bren-wound Yes Skin Appearance) -Ulcer Cleansing Rinsed/ Irrigated with Saline -Foul Odor after Cleansing No -Anesthetic Used 5% Lidocaine Gel 5-left anterior ankle -Combined with other wound No -Current Size (cm) - Length 1.1 -Current Size (cm) - Width 1 -Current Size (cm) - Depth 0.1 -Total Square Cm 1.1 -Photo Taken Yes -Epithelialization Small 1-33% -Tunneling No -Undermining/Tunneling No -Circular Undermining No -Classification - Glasgow Grading ( Grade 2 Diabetic Ulcer) -Change in Wound Grade/Stage No -Exudate Type Sanguineous -Wound Margin Flat & Intact -Granulation Amt Large (67-100%) -Slough/Fibrin Yes -Necrosis Amt Small (1-33%) -Necrotic Tissue Type Adherent Slough -Structure Exposed N/A -Texture (Bren-wound Skin Appearance) Assessed, Localized Edema -Moisture (Bren-wound Skin Appearance) Assessed,Dry/ Scaly -Color (Bren-wound Skin Appearance) Assessed -Temperature (Bren-wound Skin No Abnormality Appearance) (Pt Warm) -Tenderness on Palpation (Bren-wound No Skin Appearance) -Foul Odor after Cleansing No -Anesthetic Used 5% Lidocaine Gel Lower Limb Edema Present Yes Right Calf (cm) 46.3 Right Ankle (cm) 28 Left Calf (cm) 45.5 Left Ankle (cm) 26.6 WC - Nurse 2 - General Ulcer CM Notes Start: 06/08/21 10:22 Freq: Status: Active Protocol: Activity Type Activity Date Activity User E-Sign Co-Sign Detail Recorded Client Recorded Date Recorded By Document 06/08/21 13:10 PL [id number] 06/08/21 13:28 PL 06/08/21 13:10 Wound Center Nurse 2 7-left posterior leg -Time 10:59 -Correct Patient Yes -Correct Side, Site, Position Yes -Correct Procedure Yes -Procedure Performed Yes -Type of Procedure Debridement -Clinical Debridement Subcutaneous -Tissue Removed Subcutaneous -Post Debridement (cm) - Length 1.3 -Post Debridement (cm) - Width 2.0 -Post Debridement (cm) - Depth 0.1 -Total Square (Post) (cm) 2.60 -Area of Debridement (cm) - Length 1.3 -Area of Debridement (cm) - Width 2.0 -Total Square (Area) (cm) 2.60 -Tunneling No -Undermining/Tunneling No -Circular Undermining No -Wound/Ulcer Outcome Not Healed -Ulcer Cleansing Rinsed/ Irrigated with Saline -Foul Odor after Cleansing No -Bioengineered Tissue No -Bleeding Controlled with Pressure -Treatment Response Procedure Tolerated Well -Debridement - Subq, 1st 20sq cm No 6-left heel -Time 10:59 -Correct Patient Yes -Correct Side, Site, Position Yes -Correct Procedure Yes -Procedure Performed Yes -Type of Procedure Debridement -Clinical Debridement Subcutaneous -Tissue Removed Subcutaneous -Post Debridement (cm) - Length 2.0 -Post Debridement (cm) - Width 3.3 -Post Debridement (cm) - Depth 0.1 -Total Square (Post) (cm) 6.60 -Area of Debridement (cm) - Length 2.0 -Area of Debridement (cm) - Width 3.3 -Total Square (Area) (cm) 6.60 -Tunneling No -Undermining/Tunneling No -Circular Undermining No -Wound/Ulcer Outcome Not Healed -Ulcer Cleansing Rinsed/ Irrigated with Saline -Foul Odor after Cleansing No -Bioengineered Tissue No -Bleeding Controlled with Pressure -Treatment Response Procedure Tolerated Well -Debridement - Subq, 1st 20sq cm No 5-left anterior ankle -Time 10:59 -Correct Patient Yes -Correct Side, Site, Position Yes -Correct Procedure Yes -Procedure Performed Yes -Type of Procedure Debridement -Clinical Debridement Subcutaneous -Tissue Removed Subcutaneous -Post Debridement (cm) - Length 1.1 -Post Debridement (cm) - Width 1.0 -Post Debridement (cm) - Depth 0.1 -Total Square (Post) (cm) 1.10 -Area of Debridement (cm) - Length 1.1 -Area of Debridement (cm) - Width 1.0 -Total Square (Area) (cm) 1.10 -Tunneling No -Undermining/Tunneling No -Circular Undermining No -Wound/Ulcer Outcome Not Healed -Ulcer Cleansing Rinsed/ Irrigated with Saline -Foul Odor after Cleansing No -Bioengineered Tissue No -Bleeding Controlled with Pressure -Treatment Response Procedure Tolerated Well -Debridement - Subq, 1st 20sq cm Yes Pain Scale: 0-10 Numeric Is Patient Pain Free? Yes Assessment/Plan Assessment/Plan (1) Chronic kidney disease (CKD) stage G3a/A2, moderately decreased glomerular filtration rate (GFR) between 45-59 mL/min/1.73 square meter and albuminuria creatinine ratio between 30-299 mg/g: CODE(S): N18.31 - Chronic kidney disease, stage 3a (2) Pressure ulcer of left heel, stage 2: CODE(S): L89.622 - Pressure ulcer of left heel, stage 2 (3) Type II diabetes mellitus: CODE(S): E11.9 - Type 2 diabetes mellitus without complications QUALIFIERS: Diabetes mellitus skilled nursing insulin use: unspecified skilled nursing insulin use status Diabetes mellitus complication status: with neurologic complications Diabetes mellitus complication detail: with polyneuropathy Qualified Code(s): E11.42 - Type 2 diabetes mellitus with diabetic polyneuropathy (4) Pain in left foot: CODE(S): M79.672 - Pain in left foot PLAN: This is a 60-year-old female presenting to the wound care center today with new pressure ulcer of the left heel. Patient has history of left heel ulceration with osteomyelitis back in 2020. She underwent extensive course of IV antibiotics and followed up in the wound care center with Dr. Brown who was able to get the patient to heal with advanced wound care products and weekly wound care visits. Following replacement of her hip in January 2021 she subsequently reopened her left plantar heel wound secondary to placing more pressure at this limb site during her physical therapy and recovery process. Her has been helping her change the dressings to the left lower extremity/heel daily. Palpable pedal pulses on examination today Ulceration to the left plantar heel measures 2.0 cm x 3.3 cm x 0.1 cm. Ulceration site demonstrates a pink wound base with scant mixed fibrotic tissue throughout the wound bed. Ulceration site demonstrates no localized erythema, no malodor, no purulent drainage, no other localized signs of infection. Wound margins demonstrate scant yellow crusting and hyperkeratosis. Ulceration site was sharply debrided with a #15 blade removing scant yellow crusting, hyperkeratosis, fibrous, devitalized subcutaneous, biofilm, slough. This was tolerated well. She also has an abrasion to the posterior leg measuring 1.3 cm x 2.0 cm x 0.1 cm with no localized signs of infection. She also has an anterior ankle wound secondary to tight bandage dressings measuring 1.1 cm x 1.0 cm x 0.1 cm with no localized signs of infection. Ulceration site left heel dressed with Samantha, Aquacel Ag and dry sterile dressing. Anterior ankle wound dressed with Aquacel Ag. Daniel wrap applied to the left lower extremity to aid in control of edema. Dressings to be changed daily. She is to continue to offload the left heel as she continues to recover from her hip replacement. I discussed with her localized signs of infection. She is to observe for any erythema or redness moving up the leg, malodor to the ulceration site, purulent drainage from the ulceration site, increased pain to the left heel, or if she experiences any nausea, vomiting, fever, chills or other constitutional symptoms that these are signs of a progressing infection and she needs to report to the ED. She voices understanding of this. I reviewed and discussed his case today. Debridement was performed today as noted in the clinical panel to all of the ulcer sites. The following work up and care recommendations were made: Dressing: Samantha and Aquacel Ag-left heel; Aquacel Ag right anterior ankle dry sterile dressings and an Daniel wrap Wash: Soap and water Tissue growth optimization: Samantha Offload: Offloading surgical shoe with heel cut out Vascular: Palpable pedal pulses Edema: Elevation of lower extremities and an Daniel wrap Infection: No localized signs of infection Pain: Patient may take [id number] Tylenol extra strength for pain control Host factors: Diabetes mellitus type 2, history of osteomyelitis left heel I answered all the patient's questions. To return to the wound healing center in 1 week or call sooner if the patient has any questions or concerns. The problems addressed require a low medical decision making level which includes two or more minor problems, a stable chronic illness, or an acute uncomplicated illness or injury. The medical decision making level is low. There is noted low risk of morbidity after considering this treatment plan and diagnostic data. Note: [employer] speech recognition fire alarm dispatcher software was used to create portions of this document. Sound-alike and misspelled words, as well as other fire alarm dispatcher errors may be contained in the documentation.
[2021-06-15 10:02] VITALS: BP 185/92; PULSE 85; TEMP 35.9
--- NOTE | 2021-06-15 10:58 | PCM.WC.PN ---
History of Present Illness Date of Service: 06/15/21 Chief Complaint: left heel ulcer left ankle ulcer- healed History of Wound: In October 2019, patient had rubbing in shoes while shopping which led to a blister that developed into an ulceration. Patient was then seen by Dewey Amezquita.P.M. for wound care. Patient then became infected and was admitted to the hospital. Patient was noted to have OM on MRI. Patient wanted to avoid surgery so a termite technician course of appropriate IV antibiotics was the treatment chosen. Patient was also noted to have hyperglycemia and has worked with hospitalist and PCP to try to get better control. Blood sugar levels remain elevated. Patient also had LEAS obtained in the hospital which suggested patient had the proper blood flow to allow healing. Patient has since finished termite technician course of antibiotics. Patient has since been seen on a weekly basis in office with progression and regression of wound noted over the weeks. Patient has tried various dressing options including wet to dry and santyl. The most progress was noted with Santyl but patient ran out and was unable to refill due to insurance issues. During which time the wound regressed. She also has an offloading surgical shoe and offloading boot to relieve pressure. Patient care is henceforth being carried out at the wound care center. Patient not currently on any antibiotics. Patient has since began skin graft aplications significant improvement is been noted to her foot overall. Patient has finished epifix graft applications with some very small remaining wound noted to left heel. Patient has new wounds noted to bilateral third digits. The right 3rd digit wound has healed. Her left ankle ulcer remains healed Patient relates that ambulation is getting easier and she is rebuilding her strength slowly. She has not had any worsening of minor remaining heel wound since beginning ambulation again. 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 Her has been helping her change the dressings daily to the left heel. She presents to the wound care center today for continued care of her left heel ulceration. Subjective Subjective This is a 60-year-old female who presents to the wound care for follow-up of a left heel ulceration. She states that she has been changing the dressing daily to the site and remaining come compliant it her offloading status to the left heel. She denies any nausea, vomiting, fever, chills, shortness of breath, or other constitutional symptoms. She has no other complaints today. Objective Data Objective Data Vital Signs: Vital Signs Temp Pulse BP 96.7 F L 85 185/92 H 06/15/21 10:02 06/15/21 10:02 06/15/21 10:02 Physical Exam Const alert, oriented x3 and no apparent distress General Appearance: cooperative and comfortable HEENT normocephalic Eyes General Eye: normal appearance of both eyes Neck General: normal visual inspection Lymph Lymphatic: no lymphadenopathy noted and no lymphedema noted Resp normal respiratory effort Cardio regular rate and regular rhythm Extremity General Extremity: edema Skin no rashes or lesions noted and skin turgor normal Wound Narrative: Left lower extremity heel decubitus ulceration. Ulceration site demonstrates pink wound base with scant fibrous tissue throughout the wound bed, serosanguineous drainage, and no localized erythema, no malodor, no purulent drainage. No palpable fluctuance noted to the left heel. Ulceration site does have scant yellow crusting covering wound bed and dried hyperkeratotic tissue about the margins. Left lower extremity anterior ankle wound secondary to bandaging. Wound demonstrates no localized signs of infection with beefy red granular base. Neuro oriented x3 Motor Exam: strength 5/5 throughout Debridement Note Debridement Note Wound debrided: Left heel Laterality: Left Wound Grade/Stage: Glasgow stage I Type of Debridement: Excisional debridement Anesthesia Used: 5% Lidocaine Gel Depth: in the subcutaneous layer Percentage of wound debrided: 100 Instrument Used: #15 blade Tissue Removed: Fibrous, devitalized subcutaneous, biofilm, slough Severity: Fat Layer Exposed Amount of bleeding with debridement: Mild Bleeding Controlled with: Pressure Patient tolerated procedure: Patient tolerated procedure well Post-Debridement Measurements and Additional Note: Post-Debridement Measurements/Treatment - Nurse 1 - General Ulcer Assessment Start: 06/08/21 10:22 Freq: Status: Active Protocol: MOOK Activity Type Activity Date Activity User E-Sign Co-Sign Detail Recorded Client Recorded Date Recorded By Document 06/08/21 10:23 JAUN [id number] 06/08/21 10:32 JAUN Document 06/15/21 10:02 ELIO [id number] 06/15/21 10:08 ELIO 06/08/21 06/15/21 10:23 10:02 - Today's Visit Information Type of service Follow-up Visit (Physician/PROJECT ACCOUNT MANAGER ) Arrival Mode Wheelchair Patient Identification Verified (Name & Yes ) Vital Signs Temperature (97.8 F-99.1 F) 96.7 F L Temperature Source Temporal Pulse Rate (60-100) 85 Pulse Location Monitor Blood Pressure (90/60-120/80) 185/92 H Blood Pressure Mean (mm Hg) 123 Source Monitor Position Sitting Blood Pressure Location Left Arm History Since Last Visit- (Skip if this is Patient's initial visit) Have you changed medications since your No last visit? Any new allergies or adverse reactions No Had a fall/change in ADL's that may No increase risk of falls Signs or symptoms of abuse and/or No neglect since last visit Have you been in the hospital since your No last visit? Has dressing in place as prescribed Yes Has compression in place as prescribed No Has offloadiing in place as prescribed No Experienced any changes in pain level or No management Left Footwear Regular Shoe Right Footwear Regular Shoe Pain Scale: 0-10 Numeric Is Patient Pain Free? Yes Yes - Nurse 1 - General Ulcer Measurement Start: 06/08/21 10:22 Freq: Status: Active Protocol: Activity Type Activity Date Activity User E-Sign Co-Sign Detail Recorded Client Recorded Date Recorded By Document 06/08/21 10:23 JAUN [id number] 06/08/21 10:32 Document 06/15/21 10:02 ELIO [id number] 06/15/21 10:08 ELIO 06/08/21 06/15/21 10:23 10:02 Wound Center Nurse 1 7-left posterior leg -Combined with other wound No -Current Size (cm) - Length 1.3 1 -Current Size (cm) - Width 2.0 2.5 -Current Size (cm) - Depth 0.1 1 -Total Square Cm 2.60 2.5 -Photo Taken Yes -Epithelialization Small 1-33% -Tunneling No -Undermining/Tunneling No -Circular Undermining No -Classification - Glasgow Grading ( Grade 2 Diabetic Ulcer) -Exudate Amt Medium Small -Exudate Type Serosanguineous Serosanguineous -Wound Margin Flat & Intact Distinct, Outline Attached -Granulation Amt Large (67-100%) Small (1-33%) -Granulation Quality Red Red -Slough/Fibrin Yes -Necrosis Amt Small (1-33%) -Necrotic Tissue Type Adherent Slough -Structure Exposed N/A -Texture (Bren-wound Skin Appearance) Assessed, Assessed, Localized Edema Scarring -Moisture (Bren-wound Skin Appearance) Assessed,Dry/ No Abnormality, Scaly Assessed -Color (Bren-wound Skin Appearance) Assessed No Abnormality, Assessed -Temperature (Bren-wound Skin No Abnormality No Abnormality Appearance) (Pt Warm) (Pt Warm) -Tenderness on Palpation (Bren-wound No No Skin Appearance) -Ulcer Cleansing Rinsed/ Rinsed/ Irrigated with Irrigated with Saline Saline -Foul Odor after Cleansing No -Anesthetic Used 5% Lidocaine 4% Lidocaine Gel Solution 6-left heel -Combined with other wound No -Current Size (cm) - Length 2.0 3 -Current Size (cm) - Width 3.3 2.5 -Current Size (cm) - Depth 0.1 0.1 -Total Square Cm 6.60 7.5 -Photo Taken Yes -Epithelialization Small 1-33% -Tunneling No -Undermining/Tunneling No -Circular Undermining No -Classification - Glasgow Grading ( Grade 2 Diabetic Ulcer) -Change in Wound Grade/Stage No -Exudate Amt Medium Medium -Exudate Type Serosanguineous Yellow/Green -Wound Margin Flat & Intact Distinct, Outline Attached -Granulation Amt Medium (34-66%) None Present (0 %) -Granulation Quality [place] -Slough/Fibrin Yes -Necrosis Amt Medium (34-66%) Large (67-100%) -Necrotic Tissue Type Adherent Slough Adherent Slough -Structure Exposed N/A -Texture (Bren-wound Skin Appearance) Assessed Assessed, Scarring -Moisture (Bren-wound Skin Appearance) Assessed,Dry/ Assessed,Dry/ Scaly Scaly -Color (Bren-wound Skin Appearance) Assessed No Abnormality, Assessed -Temperature (Bren-wound Skin No Abnormality No Abnormality Appearance) (Pt Warm) (Pt Warm) -Tenderness on Palpation (Bren-wound Yes No Skin Appearance) -Ulcer Cleansing Rinsed/ Rinsed/ Irrigated with Irrigated with Saline Saline -Foul Odor after Cleansing No No -Anesthetic Used 5% Lidocaine 4% Lidocaine Gel Solution 5-left anterior ankle -Combined with other wound No -Current Size (cm) - Length 1.1 0.5 -Current Size (cm) - Width 1 1.1 -Current Size (cm) - Depth 0.1 0.2 -Total Square Cm 1.1 0.55 -Photo Taken Yes -Epithelialization Small 1-33% -Tunneling No -Undermining/Tunneling No -Circular Undermining No -Classification - Glasgow Grading ( Grade 2 Diabetic Ulcer) -Change in Wound Grade/Stage No -Exudate Amt Medium -Exudate Type Sanguineous -Wound Margin Flat & Intact Distinct, Outline Attached -Granulation Amt Large (67-100%) Small (1-33%) -Granulation Quality Red -Slough/Fibrin Yes -Necrosis Amt Small (1-33%) Large (67-100%) -Necrotic Tissue Type Adherent Slough Adherent Slough -Structure Exposed N/A -Texture (Bren-wound Skin Appearance) Assessed, Assessed, Localized Edema Scarring -Moisture (Bren-wound Skin Appearance) Assessed,Dry/ Assessed,Dry/ Scaly Scaly -Color (Bren-wound Skin Appearance) Assessed No Abnormality, Assessed -Temperature (Bren-wound Skin No Abnormality No Abnormality Appearance) (Pt Warm) (Pt Warm) -Tenderness on Palpation (Bren-wound No No Skin Appearance) -Ulcer Cleansing Rinsed/ Irrigated with Saline -Foul Odor after Cleansing No No -Anesthetic Used 5% Lidocaine 4% Lidocaine Gel Solution Lower Limb Edema Present Yes Right Calf (cm) 46.3 Right Ankle (cm) 28 Left Calf (cm) 45.5 Left Ankle (cm) 26.6 WC - Nurse 2 - General Ulcer CM Notes Start: 06/08/21 10:22 Freq: Status: Active Protocol: Activity Type Activity Date Activity User E-Sign Co-Sign Detail Recorded Client Recorded Date Recorded By Document 06/08/21 13:10 MICHEL [id number] 06/08/21 13:28 PL 06/08/21 13:10 Wound Center Nurse 2 7-left posterior leg -Time 10:59 -Correct Patient Yes -Correct Side, Site, Position Yes -Correct Procedure Yes -Procedure Performed Yes -Type of Procedure Debridement -Clinical Debridement Subcutaneous -Tissue Removed Subcutaneous -Post Debridement (cm) - Length 1.3 -Post Debridement (cm) - Width 2.0 -Post Debridement (cm) - Depth 0.1 -Total Square (Post) (cm) 2.60 -Area of Debridement (cm) - Length 1.3 -Area of Debridement (cm) - Width 2.0 -Total Square (Area) (cm) 2.60 -Tunneling No -Undermining/Tunneling No -Circular Undermining No -Wound/Ulcer Outcome Not Healed -Ulcer Cleansing Rinsed/ Irrigated with Saline -Foul Odor after Cleansing No -Bioengineered Tissue No -Bleeding Controlled with Pressure -Treatment Response Procedure Tolerated Well -Debridement - Subq, 1st 20sq cm No 6-left heel -Time 10:59 -Correct Patient Yes -Correct Side, Site, Position Yes -Correct Procedure Yes -Procedure Performed Yes -Type of Procedure Debridement -Clinical Debridement Subcutaneous -Tissue Removed Subcutaneous -Post Debridement (cm) - Length 2.0 -Post Debridement (cm) - Width 3.3 -Post Debridement (cm) - Depth 0.1 -Total Square (Post) (cm) 6.60 -Area of Debridement (cm) - Length 2.0 -Area of Debridement (cm) - Width 3.3 -Total Square (Area) (cm) 6.60 -Tunneling No -Undermining/Tunneling No -Circular Undermining No -Wound/Ulcer Outcome Not Healed -Ulcer Cleansing Rinsed/ Irrigated with Saline -Foul Odor after Cleansing No -Bioengineered Tissue No -Bleeding Controlled with Pressure -Treatment Response Procedure Tolerated Well -Debridement - Subq, 1st 20sq cm No 5-left anterior ankle -Time 10:59 -Correct Patient Yes -Correct Side, Site, Position Yes -Correct Procedure Yes -Procedure Performed Yes -Type of Procedure Debridement -Clinical Debridement Subcutaneous -Tissue Removed Subcutaneous -Post Debridement (cm) - Length 1.1 -Post Debridement (cm) - Width 1.0 -Post Debridement (cm) - Depth 0.1 -Total Square (Post) (cm) 1.10 -Area of Debridement (cm) - Length 1.1 -Area of Debridement (cm) - Width 1.0 -Total Square (Area) (cm) 1.10 -Tunneling No -Undermining/Tunneling No -Circular Undermining No -Wound/Ulcer Outcome Not Healed -Ulcer Cleansing Rinsed/ Irrigated with Saline -Foul Odor after Cleansing No -Bioengineered Tissue No -Bleeding Controlled with Pressure -Treatment Response Procedure Tolerated Well -Debridement - Subq, 1st 20sq cm Yes Pain Scale: 0-10 Numeric Is Patient Pain Free? Yes Assessment/Plan Assessment/Plan (1) Chronic kidney disease (CKD) stage G3a/A2, moderately decreased glomerular filtration rate (GFR) between 45-59 mL/min/1.73 square meter and albuminuria creatinine ratio between 30-299 mg/g: CODE(S): N18.31 - Chronic kidney disease, stage 3a (2) Pressure ulcer of left heel, stage 2: CODE(S): L89.622 - Pressure ulcer of left heel, stage 2 (3) Type II diabetes mellitus: CODE(S): E11.9 - Type 2 diabetes mellitus without complications QUALIFIERS: Diabetes mellitus fdc insulin use: unspecified fdc insulin use status Diabetes mellitus complication status: with neurologic complications Diabetes mellitus complication detail: with polyneuropathy Qualified Code(s): E11.42 - Type 2 diabetes mellitus with diabetic polyneuropathy (4) Pain in left foot: CODE(S): M79.672 - Pain in left foot PLAN: This is a 60-year-old female presenting to the wound care center today with new pressure ulcer of the left heel. Patient has history of left heel ulceration with osteomyelitis back in 2019. She underwent extensive course of IV antibiotics and followed up in the wound care center with Dr. Brown who was able to get the patient to heal with advanced wound care products and weekly wound care visits. Following replacement of her hip in January 2021 she subsequently reopened her left plantar heel wound secondary to placing more pressure at this limb site during her physical therapy and recovery process. Her has been helping her change the dressings to the left lower extremity/heel daily. Palpable pedal pulses on examination today Ulceration to the left plantar heel measures 3.0 cm x 2.5 cm x 0.1 cm. Ulceration site demonstrates a pink wound base with scant mixed fibrotic tissue throughout the wound bed. Ulceration site demonstrates no localized erythema, no malodor, no purulent drainage, no other localized signs of infection. Wound margins demonstrate scant yellow crusting and hyperkeratosis. Ulceration site was sharply debrided with a #15 blade removing scant yellow crusting, hyperkeratosis, fibrous, devitalized subcutaneous, biofilm, slough. This was tolerated well. She also has an abrasion to the posterior leg measuring 1.0 cm x 2.5 cm x 0.1 cm with no localized signs of infection. She also has an anterior ankle wound secondary to tight bandage dressings measuring 0.5 cm x 1.1 cm x 0.2 cm with no localized signs of infection. Ulceration site left heel dressed with Samantha, Aquacel Ag and dry sterile dressing. Anterior ankle wound dressed with Aquacel Ag. Daniel wrap applied to the left lower extremity to aid in control of edema. Dressings to be changed daily. She is to continue to offload the left heel as she continues to recover from her hip replacement. I discussed with her localized signs of infection. She is to observe for any erythema or redness moving up the leg, malodor to the ulceration site, purulent drainage from the ulceration site, increased pain to the left heel, or if she experiences any nausea, vomiting, fever, chills or other constitutional symptoms that these are signs of a progressing infection and she needs to report to the ED. She voices understanding of this. I reviewed and discussed his case today. Debridement was performed today as noted in the clinical panel to all of the ulcer sites. The following work up and care recommendations were made: Dressing: Samantha and Aquacel Ag-left heel; Aquacel Ag right anterior ankle dry sterile dressings and an Daniel wrap Wash: Soap and water Tissue growth optimization: Samantha Offload: Offloading surgical shoe with heel cut out Vascular: Palpable pedal pulses Edema: Elevation of lower extremities and an Daniel wrap Infection: No localized signs of infection Pain: Patient may take [id number] Tylenol extra strength for pain control Host factors: Diabetes mellitus type 2, history of osteomyelitis left heel I answered all the patient's questions. To return to the wound healing center in 1 week or call sooner if the patient has any questions or concerns. Note: [employer] speech recognition executive creative director software was used to create portions of this document. Sound-alike and misspelled words, as well as other executive creative director errors may be contained in the documentation.
[2021-06-22 10:40] VITALS: BP 144/106; RESP 18; TEMP 35.6
--- NOTE | 2021-06-22 13:45 | PCM.WC.PN ---
History of Present Illness Date of Service: 06/22/21 Chief Complaint: left heel ulcer left ankle ulcer- healed History of Wound: In October 2019, patient had rubbing in shoes while shopping which led to a blister that developed into an ulceration. Patient was then seen by Dewey Amezquita.P.M. for wound care. Patient then became infected and was admitted to the hospital. Patient was noted to have OM on MRI. 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 Patient was also noted to have hyperglycemia and has worked with hospitalist and PCP to try to get better control. Blood sugar levels remain elevated. Patient also had LEAS obtained in the hospital which suggested patient had the proper blood flow to allow healing. 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 Patient has since been seen on a weekly basis in office with progression and regression of wound noted over the weeks. Patient has tried various dressing options including wet to dry and santyl. The most progress was noted with Santyl but patient ran out and was unable to refill due to insurance issues. During which time the wound regressed. She also has an offloading surgical shoe and offloading boot to relieve pressure. Patient care is henceforth being carried out at the wound care center. Patient not currently on any antibiotics. Patient has since began skin graft aplications significant improvement is been noted to her foot overall. Patient has finished epifix graft applications with some very small remaining wound noted to left heel. Patient has new wounds noted to bilateral third digits. The right 3rd digit wound has healed. Her left ankle ulcer remains healed Patient relates that ambulation is getting easier and she is rebuilding her strength slowly. She has not had any worsening of minor remaining heel wound since beginning ambulation again. 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 Her has been helping her change the dressings daily to the left heel. She presents to the wound care center today for continued care of her left heel ulceration. Subjective Subjective This is a 60-year-old female who presents to the wound care for follow-up of a left heel ulceration. She states that she has been changing the dressing daily to the site and remaining come compliant it her offloading status to the left heel. She denies any nausea, vomiting, fever, chills, shortness of breath, or other constitutional symptoms. She has no other complaints today. Objective Data Objective Data Vital Signs: Vital Signs Temp Pulse Resp BP 96.0 F L 85 18 144/106 H 06/22/21 10:40 06/15/21 10:02 06/22/21 10:40 06/22/21 10:40 Physical Exam Const alert, oriented x3 and no apparent distress General Appearance: cooperative and comfortable HEENT normocephalic Eyes General Eye: normal appearance of both eyes Neck General: normal visual inspection Lymph Lymphatic: no lymphadenopathy noted and no lymphedema noted Resp normal respiratory effort Cardio regular rate and regular rhythm Extremity General Extremity: edema Skin no rashes or lesions noted and skin turgor normal Wound Narrative: Left lower extremity heel decubitus ulceration. Ulceration site demonstrates pink wound base with scant fibrous tissue throughout the wound bed, serosanguineous drainage, and no localized erythema, no malodor, no purulent drainage. No palpable fluctuance noted to the left heel. Ulceration site does have scant yellow crusting covering wound bed and dried hyperkeratotic tissue about the margins. Left lower extremity anterior ankle wound secondary to bandaging. Wound demonstrates no localized signs of infection with beefy red granular base. Neuro oriented x3 Motor Exam: strength 5/5 throughout Debridement Note Debridement Note Wound debrided: Left heel Laterality: Left Wound Grade/Stage: Glasgow stage I Type of Debridement: Excisional debridement Anesthesia Used: 5% Lidocaine Gel Depth: in the subcutaneous layer Percentage of wound debrided: 100 Instrument Used: 3mm curette and #15 blade Tissue Removed: Fibrous, devitalized subcutaneous, biofilm, slough Severity: Fat Layer Exposed Amount of bleeding with debridement: Mild Bleeding Controlled with: Compression and gauze and Silver Nitrate Patient tolerated procedure: Patient tolerated procedure well Post-Debridement Measurements and Additional Note: Post-Debridement Measurements/Treatment SAMARIA - Nurse 1 - General Ulcer Assessment Start: 06/08/21 10:22 Freq: Status: Active Protocol: MOOK Activity Type Activity Date Activity User E-Sign Co-Sign Detail Recorded Client Recorded Date Recorded By Document 06/08/21 10:23 JAUN [id number] 06/08/21 10:32 JAUN Document 06/15/21 10:02 ELIO [id number] 06/15/21 10:08 Document 06/22/21 10:40 JAUN [id number] 06/22/21 10:59 JAUN 06/08/21 06/15/21 06/22/21 10:23 10:02 10:40 - Today's Visit Information Type of service Follow-up Visit Follow-up Visit (Physician/SENIOR TECHNICAL ANALYST (Physician/SENIOR TECHNICAL ANALYST ) ) Arrival Mode Wheelchair Walker, Wheelchair Patient Identification Verified (Name & Yes Yes ) Patient Requires Transmission-Based No Precautions Vital Signs Temperature (97.8 F-99.1 F) 96.7 F L 96.0 F L Temperature Source Temporal Temporal Pulse Rate (60-100) 85 Pulse Location Monitor Respiratory Rate (12-18) 18 Respiratory rate source Observation Blood Pressure (90/60-120/80) 185/92 H 144/106 H Blood Pressure Mean (mm Hg) 123 118 Source Monitor Monitor Position Sitting Semi-Fowlers Blood Pressure Location Left Arm Left Forearm History Since Last Visit- (Skip if this is Patient's initial visit) Have you changed medications since your No No last visit? Any new allergies or adverse reactions No No Had a fall/change in ADL's that may No No increase risk of falls Signs or symptoms of abuse and/or No No neglect since last visit Have you been in the hospital since your No No last visit? Has dressing in place as prescribed Yes Yes Has compression in place as prescribed No Yes Has offloadiing in place as prescribed No N/A Experienced any changes in pain level or No No management Left Footwear Regular Shoe No Footwear Right Footwear Regular Shoe No Footwear Pain Scale: 0-10 Numeric Is Patient Pain Free? Yes Yes Yes - Nurse 1 - General Ulcer Measurement Start: 06/08/21 10:22 Freq: Status: Active Protocol: Activity Type Activity Date Activity User E-Sign Co-Sign Detail Recorded Client Recorded Date Recorded By Document 06/08/21 10:23 JAUN [id number] 06/08/21 10:32 JAUN Document 06/15/21 10:02 ELIO [id number] 06/15/21 10:08 ELIO Document 06/22/21 10:40 JAUN [id number] 06/22/21 10:59 JAUN 06/08/21 06/15/2122 10:23 10:02 10:40 Wound Center Nurse 1 8-right posterior leg -Combined with other wound No -Current Size (cm) - Length 2.8 -Current Size (cm) - Width 2.3 -Current Size (cm) - Depth 0.1 -Total Square Cm 6.44 -Photo Taken Yes -Epithelialization None Present -Tunneling No -Undermining/Tunneling No -Circular Undermining No -Exudate Amt Small -Exudate Type Serosanguineous -Wound Margin Flat & Intact -Granulation Amt Large (67-100%) -Granulation Quality Red -Slough/Fibrin Yes -Necrosis Amt Small (1-33%) -Necrotic Tissue Type Adherent Slough -Structure Exposed N/A -Texture (Bren-wound Skin Appearance) Assessed, Localized Edema -Moisture (Bren-wound Skin Appearance) Assessed,Dry/ Scaly -Color (Bren-wound Skin Appearance) Assessed -Temperature (Bren-wound Skin No Abnormality Appearance) (Pt Warm) -Tenderness on Palpation (Bren-wound No Skin Appearance) -Ulcer Cleansing Wound Cleanser -Foul Odor after Cleansing No -Anesthetic Used 4% Lidocaine Solution 7-left posterior leg -Combined with other wound No No -Current Size (cm) - Length 1.3 1 3.5 -Current Size (cm) - Width 2.0 2.5 4.5 -Current Size (cm) - Depth 0.1 1 0.1 -Total Square Cm 2.60 2.5 15.75 -Photo Taken Yes No -Epithelialization Small 1-33% Small 1-33% -Tunneling No No -Undermining/Tunneling No No -Circular Undermining No No -Classification - Glasgow Grading ( Grade 2 Diabetic Ulcer) -Exudate Amt Medium Small Medium -Exudate Type Serosanguineous Serosanguineous Serosanguineous -Wound Margin Flat & Intact Distinct, Flat & Intact Outline Attached -Granulation Amt Large (67-100%) Small (1-33%) Large (67-100%) -Granulation Quality Red Red Red -Slough/Fibrin Yes Yes -Necrosis Amt Small (1-33%) Small (1-33%) -Necrotic Tissue Type Adherent Slough Adherent Slough -Structure Exposed N/A N/A -Texture (Bren-wound Skin Appearance) Assessed, Assessed, Assessed, Localized Edema Scarring Localized Edema -Moisture (Bren-wound Skin Appearance) Assessed,Dry/ No Abnormality, Assessed,Dry/ Scaly Assessed Scaly -Color (Bren-wound Skin Appearance) Assessed No Abnormality, Assessed Assessed -Temperature (Bren-wound Skin No Abnormality No Abnormality No Abnormality Appearance) (Pt Warm) (Pt Warm) (Pt Warm) -Tenderness on Palpation (Bren-wound No No No Skin Appearance) -Ulcer Cleansing Rinsed/ Rinsed/ Wound Cleanser Irrigated with Irrigated with Saline Saline -Foul Odor after Cleansing No No -Anesthetic Used 5% Lidocaine 4% Lidocaine 4% Lidocaine Gel Solution Solution 6-left heel -Combined with other wound No No -Current Size (cm) - Length 2.0 3 3.5 -Current Size (cm) - Width 3.3 2.5 4 -Current Size (cm) - Depth 0.1 0.1 0.1 -Total Square Cm 6.60 7.5 14.0 -Photo Taken Yes No -Epithelialization Small 1-33% None Present -Tunneling No No -Undermining/Tunneling No No -Circular Undermining No No -Classification - Glasgow Grading ( Grade 2 Diabetic Ulcer) -Change in Wound Grade/Stage No -Exudate Amt Medium Medium Large -Exudate Type Serosanguineous Yellow/Green Serosanguineous -Wound Margin Flat & Intact Distinct, Flat & Intact Outline Attached -Granulation Amt Medium (34-66%) None Present (0 Medium (34-66%) %) -Granulation Quality [place] -Slough/Fibrin Yes Yes -Necrosis Amt Medium (34-66%) Large (67-100%) Large (67-100%) -Necrotic Tissue Type Adherent Slough Adherent Slough Adherent Slough -Structure Exposed N/A N/A -Texture (Bren-wound Skin Appearance) Assessed Assessed, Assessed Scarring -Moisture (Bren-wound Skin Appearance) Assessed,Dry/ Assessed,Dry/ Assessed,Dry/ Scaly Scaly Scaly -Color (Bren-wound Skin Appearance) Assessed No Abnormality, Assessed Assessed -Temperature (Bren-wound Skin No Abnormality No Abnormality No Abnormality Appearance) (Pt Warm) (Pt Warm) (Pt Warm) -Tenderness on Palpation (Bren-wound Yes No Yes Skin Appearance) -Ulcer Cleansing Rinsed/ Rinsed/ Wound Cleanser Irrigated with Irrigated with Saline Saline -Foul Odor after Cleansing No No No -Anesthetic Used 5% Lidocaine 4% Lidocaine 4% Lidocaine Gel Solution Solution 5-left anterior ankle -Combined with other wound No No -Current Size (cm) - Length 1.1 0.5 0 -Current Size (cm) - Width 1 1.1 0 -Current Size (cm) - Depth 0.1 0.2 0 -Total Square Cm 1.1 0.55 0 -Photo Taken Yes Yes -Epithelialization Small 1-33% Large 67-100% -Tunneling No -Undermining/Tunneling No -Circular Undermining No -Classification - Glasgow Grading ( Grade 2 Diabetic Ulcer) -Change in Wound Grade/Stage No -Exudate Amt Medium -Exudate Type Sanguineous -Wound Margin Flat & Intact Distinct, Outline Attached -Granulation Amt Large (67-100%) Small (1-33%) -Granulation Quality Red -Slough/Fibrin Yes -Necrosis Amt Small (1-33%) Large (67-100%) -Necrotic Tissue Type Adherent Slough Adherent Slough -Structure Exposed N/A -Texture (Bren-wound Skin Appearance) Assessed, Assessed, Localized Edema Scarring -Moisture (Bren-wound Skin Appearance) Assessed,Dry/ Assessed,Dry/ Scaly Scaly -Color (Bren-wound Skin Appearance) Assessed No Abnormality, Assessed -Temperature (Bren-wound Skin No Abnormality No Abnormality Appearance) (Pt Warm) (Pt Warm) -Tenderness on Palpation (Bren-wound No No Skin Appearance) -Ulcer Cleansing Rinsed/ Irrigated with Saline -Foul Odor after Cleansing No No -Anesthetic Used 5% Lidocaine 4% Lidocaine Gel Solution Lower Limb Edema Present Yes Yes Right Calf (cm) 46.3 47.2 Right Ankle (cm) 28 27.0 Left Calf (cm) 45.5 46.1 Left Ankle (cm) 26.6 25 WC - Nurse 2 - General Ulcer CM Notes Start: 06/08/21 10:22 Freq: Status: Active Protocol: Activity Type Activity Date Activity User E-Sign Co-Sign Detail Recorded Client Recorded Date Recorded By Document 06/08/21 13:10 PL [id number] 06/08/21 13:28 PL Document 06/15/21 15:49 PL [id number] 06/15/21 16:06 PL Document 06/22/21 13:35 PL [id number] 06/22/21 13:40 PL 06/08/21 06/15/21 06/22/21 13:10 15:49 13:35 Wound Center Nurse 2 8-right posterior leg -Time 11:12 -Correct Patient Yes -Correct Side, Site, Position Yes -Correct Procedure Yes -Procedure Performed Yes -Type of Procedure Debridement -Clinical Debridement Subcutaneous -Tissue Removed Subcutaneous -Post Debridement (cm) - Length 2.8 -Post Debridement (cm) - Width 2.3 -Post Debridement (cm) - Depth 0.1 -Total Square (Post) (cm) 6.44 -Area of Debridement (cm) - Length 2.8 -Area of Debridement (cm) - Width 2.3 -Total Square (Area) (cm) 6.44 -Tunneling No -Undermining/Tunneling No -Circular Undermining No -Wound/Ulcer Outcome Not Healed -Ulcer Cleansing Rinsed/ Irrigated with Saline -Foul Odor after Cleansing No -Bioengineered Tissue No -Bleeding Controlled with Pressure -Treatment Response Procedure Tolerated Well -Debridement - Subq, 1st 20sq cm No 7-left posterior leg -Time 10:59 10:37 11:12 -Correct Patient Yes Yes Yes -Correct Side, Site, Position Yes Yes Yes -Correct Procedure Yes Yes Yes -Procedure Performed Yes Yes Yes -Type of Procedure Debridement Debridement Debridement -Clinical Debridement Subcutaneous Subcutaneous Subcutaneous -Tissue Removed Subcutaneous Subcutaneous Subcutaneous -Post Debridement (cm) - Length 1.3 1.0 3.5 -Post Debridement (cm) - Width 2.0 2.5 4.5 -Post Debridement (cm) - Depth 0.1 1.0 0.1 -Total Square (Post) (cm) 2.60 2.50 15.75 -Area of Debridement (cm) - Length 1.3 1.0 3.5 -Area of Debridement (cm) - Width 2.0 0.5 4.5 -Total Square (Area) (cm) 2.60 0.50 15.75 -Tunneling No No No -Undermining/Tunneling No No No -Circular Undermining No No No -Wound/Ulcer Outcome Not Healed Not Healed Not Healed -Ulcer Cleansing Rinsed/ Rinsed/ Rinsed/ Irrigated with Irrigated with Irrigated with Saline Saline Saline -Foul Odor after Cleansing No No No -Bioengineered Tissue No No No -Bleeding Controlled with Pressure Pressure Pressure -Treatment Response Procedure Procedure Procedure Tolerated Well Tolerated Well Tolerated Well -Debridement - Subq, 1st 20sq cm No No No 6-left heel -Time 10:59 10:37 11:15 -Correct Patient Yes Yes Yes -Correct Side, Site, Position Yes Yes Yes -Correct Procedure Yes Yes Yes -Procedure Performed Yes Yes Yes -Type of Procedure Debridement Debridement Debridement -Clinical Debridement Subcutaneous Subcutaneous Subcutaneous -Tissue Removed Subcutaneous Subcutaneous Subcutaneous -Post Debridement (cm) - Length 2.0 3.0 3.5 -Post Debridement (cm) - Width 3.3 2.5 4.0 -Post Debridement (cm) - Depth 0.1 0.1 0.1 -Total Square (Post) (cm) 6.60 7.50 14.00 -Area of Debridement (cm) - Length 2.0 3.0 3.5 -Area of Debridement (cm) - Width 3.3 2.5 4.0 -Total Square (Area) (cm) 6.60 7.50 14.00 -Tunneling No No No -Undermining/Tunneling No No No -Circular Undermining No No No -Wound/Ulcer Outcome Not Healed Not Healed Not Healed -Ulcer Cleansing Rinsed/ Rinsed/ Rinsed/ Irrigated with Irrigated with Irrigated with Saline Saline Saline -Foul Odor after Cleansing No No No -Bioengineered Tissue No No No -Bleeding Controlled with Pressure Pressure Pressure -Treatment Response Procedure Procedure Procedure Tolerated Well Tolerated Well Tolerated Well -Debridement - Subq, 1st 20sq cm No No No 5-left anterior ankle -Time 10:59 10:37 -Correct Patient Yes Yes -Correct Side, Site, Position Yes Yes -Correct Procedure Yes Yes -Procedure Performed Yes Yes No -Type of Procedure Debridement Debridement -Clinical Debridement Subcutaneous Subcutaneous -Tissue Removed Subcutaneous Subcutaneous -Post Debridement (cm) - Length 1.1 0.5 -Post Debridement (cm) - Width 1.0 1.1 -Post Debridement (cm) - Depth 0.1 0.2 -Total Square (Post) (cm) 1.10 0.55 -Area of Debridement (cm) - Length 1.1 0.5 -Area of Debridement (cm) - Width 1.0 1.1 -Total Square (Area) (cm) 1.10 0.55 -Tunneling No No -Undermining/Tunneling No No -Circular Undermining No No -Wound/Ulcer Outcome Not Healed Not Healed Healed- Epithelialized -Ulcer Cleansing Rinsed/ Rinsed/ Irrigated with Irrigated with Saline Saline -Foul Odor after Cleansing No No -Bioengineered Tissue No No -Bleeding Controlled with Pressure Pressure -Treatment Response Procedure Procedure Tolerated Well Tolerated Well -Debridement - Subq, 1st 20sq cm Yes Yes Pain Scale: 0-10 Numeric Is Patient Pain Free? Yes Yes Yes - Nurse 3 - General Ulcer D/C NN Start: 06/08/21 10:22 Freq: Status: Active Protocol: Activity Type Activity Date Activity User E-Sign Co-Sign Detail Recorded Client Recorded Date Recorded By Document 06/15/21 12:02 ELIO [id number] 06/15/21 12:03 ELIO 06/15/21 12:02 Wound Care Nurse 3 7-left posterior leg -Ulcer Cleansing Rinsed/ Irrigated with Saline -Primary Dressing Applied Aquacel AG 4x4, Promogran Samantha Matter -Primary Dressing Covered/Secured with Dry Gauze,Dry Gauze & Roll Gauze,Secured with Tape -Aquacel AG 4x4 1 -Promogran Samantha Matter 1 6-left heel -Ulcer Cleansing Rinsed/ Irrigated with Saline -Primary Dressing Covered/Secured with Dry Gauze, Secured with Tape 5-left anterior ankle -Ulcer Cleansing Rinsed/ Irrigated with Saline -Primary Dressing Applied C Hydrogel ($) Pain Scale: 0-10 Numeric Is Patient Pain Free? Yes WC - Visit Discharge Discharge Condition Stable Ambulatory Status Wheelchair Transportation Private Auto Accompanied by Assessment/Plan Assessment/Plan (1) Chronic kidney disease (CKD) stage G3a/A2, moderately decreased glomerular filtration rate (GFR) between 45-59 mL/min/1.73 square meter and albuminuria creatinine ratio between 30-299 mg/g: CODE(S): N18.31 - Chronic kidney disease, stage 3a (2) Pressure ulcer of left heel, stage 2: CODE(S): L89.622 - Pressure ulcer of left heel, stage 2 (3) Type II diabetes mellitus: CODE(S): E11.9 - Type 2 diabetes mellitus without complications QUALIFIERS: Diabetes mellitus fdc insulin use: 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 Patient has history of left heel ulceration with osteomyelitis back in 2019. She underwent extensive course of IV antibiotics and followed up in the wound care center with Dr. Brown who was able to get the patient to heal with advanced wound care products and weekly wound care visits. Following replacement of her hip in January 2021 she subsequently reopened her left plantar heel wound secondary to placing more pressure at this limb site during her physical therapy and recovery process. Her has been helping her change the dressings to the left lower extremity/heel daily. Palpable pedal pulses on examination today Ulceration to the left plantar heel measures 3.5 cm x 4.0 cm x 0.1 cm. Ulceration site demonstrates a pink wound base with scant mixed fibrotic tissue throughout the wound bed. Ulceration site demonstrates no localized erythema, no malodor, no purulent drainage, no other localized signs of infection. Wound margins demonstrate scant yellow crusting and hyperkeratosis. Ulceration site was sharply debrided with a #15 blade and 3 mm curette removing scant yellow crusting, hyperkeratosis, fibrous, devitalized subcutaneous, biofilm, slough. This was tolerated well. She also has an abrasion to the posterior leg measuring 3.5 cm x 4.5cm x 0.1 cm with no localized signs of infection. She also has an anterior ankle wound secondary to tight bandage dressings which is healed today. Ulceration site left heel dressed with Samantha, Aquacel Ag and dry sterile dressing. Anterior ankle wound dressed with Aquacel Ag. Daniel wrap applied to the left lower extremity to aid in control of edema. Dressings to be changed daily. She is to continue to offload the left heel as she continues to recover from her hip replacement. I discussed with her localized signs of infection. She is to observe for any erythema or redness moving up the leg, malodor to the ulceration site, purulent drainage from the ulceration site, increased pain to the left heel, or if she experiences any nausea, vomiting, fever, chills or other constitutional symptoms that these are signs of a progressing infection and she needs to report to the ED. She voices understanding of this. I reviewed and discussed his case today. Debridement was performed today as noted in the clinical panel to all of the ulcer sites. The following work up and care recommendations were made: Dressing: Samantha and Aquacel Ag-left heel; Aquacel Ag right anterior ankle dry sterile dressings and an Daniel wrap Wash: Soap and water Tissue growth optimization: Samantha Offload: Offloading surgical shoe with heel cut out Vascular: Palpable pedal pulses Edema: Elevation of lower extremities and an Daniel wrap Infection: No localized signs of infection Pain: Patient may take [id number] Tylenol extra strength for pain control Host factors: Diabetes mellitus type 2, history of osteomyelitis left heel I answered all the patient's questions. To return to the wound healing center in 1 week or call sooner if the patient has any questions or concerns. Note: [employer] speech recognition career technology teacher software was used to create portions of this document. Sound-alike and misspelled words, as well as other career technology teacher errors may be contained in the documentation.
== END 2021-06-29 23:59 | disposition home or self-care (01) ==
LOC: WC 10:15
PROVIDERS: PCP Family Medicine; Visit Provider Student in an Organized Health Care Education/Training Program
DX: E11.621 Type 2 diabetes mellitus with foot ulcer (principal); L89.622 Pressure ulcer of left heel, stage 2; E11.42 Type 2 diabetes mellitus with diabetic polyneuropathy; E11.22 Type 2 diabetes mellitus with diabetic chronic kidney disease; Z79.4 Long term (current) use of insulin; N18.31 Chronic kidney disease, stage 3a; Z79.82 Long term (current) use of aspirin; I12.9 Hypertensive chronic kidney disease with stage 1 through stage 4 chronic kidney disease, or unspecified chronic kidney disease; E78.5 Hyperlipidemia, unspecified; E78.00 Pure hypercholesterolemia, unspecified; G89.4 Chronic pain syndrome; M79.672 Pain in left foot
CPT/HCPCS: 11042; 99213; G0463

== ENCOUNTER 2021-07-27 09:45 | Outpatient (RCR) | payer MEDICARE, MEDICAID, SELFPAY ==
[2021-06-30 00:10] VITALS: BP 144/106; PULSE 85; RESP 18; TEMP 35.6
[2021-07-06 09:36] VITALS: BP 178/86; PULSE 73; TEMP 36.4
--- NOTE | 2021-07-06 10:20 | PCM.WC.PN ---
History of Present Illness Date of Service: 07/06/21 Chief Complaint: left heel ulcer left ankle ulcer- healed History of Wound: In October 2019, patient had rubbing in shoes while shopping which led to a blister that developed into an ulceration. Patient was then seen by Dewey [email or web address].[email or web address]. for wound care. Patient then became infected and was admitted to the hospital. Patient was noted to have OM on MRI. Patient wanted to avoid surgery so a rat exterminator course of appropriate IV antibiotics was the treatment chosen. Patient was also noted to have hyperglycemia and has worked with hospitalist and PCP to try to get better control. Blood sugar levels remain elevated. Patient also had LEAS obtained in the hospital which suggested patient had the proper blood flow to allow healing. Patient has since finished rat exterminator course of antibiotics. Patient has since been seen on a weekly basis in office with progression and regression of wound noted over the weeks. Patient has tried various dressing options including wet to dry and santyl. The most progress was noted with Santyl but patient ran out and was unable to refill due to insurance issues. During which time the wound regressed. She also has an offloading surgical shoe and offloading boot to relieve pressure. Patient care is henceforth being carried out at the wound care center. Patient not currently on any antibiotics. Patient has since began skin graft aplications significant improvement is been noted to her foot overall. Patient has finished epifix graft applications with some very small remaining wound noted to left heel. Patient has new wounds noted to bilateral third digits. The right 3rd digit wound has healed. Her left ankle ulcer remains healed Patient relates that ambulation is getting easier and she is rebuilding her strength slowly. She has not had any worsening of minor remaining heel wound since beginning ambulation again. 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 Her has been helping her change the dressings daily to the left heel. She presents to the wound care center today for continued care of her left heel ulceration. Subjective Subjective This is a 60-year-old female who presents to the wound care center for follow-up of her left heel ulceration. She states that her has been changing her dressings daily to the site and she is remaining compliant in her offloading status to the left heel. She denies any constitutional symptoms today. She states that physical therapy comes to her house to work in her rehab. She has no other complaints today. Objective Data Objective Data Vital Signs: Vital Signs Temp Pulse Resp BP 97.5 F L 73 18 178/86 H 07/06/21 09:36 07/06/21 09:36 06/30/21 00:10 07/06/21 09:36 Physical Exam Const alert, oriented x3 and no apparent distress General Appearance: cooperative and comfortable HEENT normocephalic Eyes General Eye: normal appearance of both eyes Neck General: normal visual inspection Lymph Lymphatic: no lymphadenopathy noted and no lymphedema noted Resp normal respiratory effort Cardio regular rate and regular rhythm Extremity normal capillary refill and no calf tenderness General Extremity: edema bilateral lower extremity Skin no rashes or lesions noted and skin turgor normal Wound Narrative: Right posterior leg abrasion with no localized signs of infection. Left lower extremity heel decubitus ulceration. Ulcerative site demonstrates pink wound base with scant fibrotic tissue throughout the wound bed, with serosanguineous drainage, and no localized signs of infection. No palpable fluctuance noted to the left heel. Ulcerative site does have a scant yellow crusting covering the wound bed and dried hyperkeratotic tissue about the wound margins. Left lower extremity anterior ankle wound, secondary to bandaging, has healed. Neuro oriented x3 and moves all extremities Motor Exam: strength 5/5 throughout Debridement Note Debridement Note Wound debrided: Left heel Laterality: Left Wound Grade/Stage: Glasgow stage II Type of Debridement: Excisional debridement Anesthesia Used: 4% Lidocaine Solution Depth: Down to and including healthy tissue and in the subcutaneous layer Percentage of wound debrided: 100 Instrument Used: 3mm curette Tissue Removed: Fibrous, devitalized subcutaneous, biofilm, slough Severity: Fat Layer Exposed Amount of bleeding with debridement: Mild Bleeding Controlled with: Compression and gauze Patient tolerated procedure: Patient tolerated procedure well Post-Debridement Measurements and Additional Note: Post-Debridement Measurements/Treatment SAMARIA - Nurse 1 - General Ulcer Assessment Start: 07/06/21 09:36 Freq: Status: Active Protocol: MOOK Activity Type Activity Date Activity User E-Sign Co-Sign Detail Recorded Client Recorded Date Recorded By Document 07/06/21 09:36 ELIO [id number] 07/06/21 09:45 ELIO 07/06/21 09:36 - Today's Visit Information Type of service Follow-up Visit (Physician/MILANESE KNITTING MACHINE OPERATOR ) Arrival Mode Ambulatory Patient Identification Verified (Name & Yes ) Vital Signs Temperature (97.8 F-99.1 F) 97.5 F L Temperature Source Temporal Pulse Rate (60-100) 73 Pulse Location Monitor Blood Pressure (90/60-120/80) 178/86 H Blood Pressure Mean (mm Hg) 116 Source Monitor Position Semi-Fowlers Blood Pressure Location Right Arm History Since Last Visit- (Skip if this is Patient's initial visit) Have you changed medications since your No last visit? Any new allergies or adverse reactions No Had a fall/change in ADL's that may No increase risk of falls Signs or symptoms of abuse and/or No neglect since last visit Have you been in the hospital since your No last visit? Has dressing in place as prescribed Yes Has compression in place as prescribed Yes Has offloadiing in place as prescribed N/A Experienced any changes in pain level or No management Left Footwear Slipper Right Footwear Slipper Pain Scale: 0-10 Numeric Is Patient Pain Free? Yes - Nurse 1 - General Ulcer Measurement Start: 07/06/21 09:36 Freq: Status: Active Protocol: Activity Type Activity Date Activity User E-Sign Co-Sign Detail Recorded Client Recorded Date Recorded By Document 07/06/21 09:36 ELIO [id number] 07/06/21 09:45 ELIO 07/06/21 09:36 Wound Center Nurse 1 8-right posterior leg -Current Size (cm) - Length 2 -Current Size (cm) - Width 2.3 -Current Size (cm) - Depth 0.1 -Total Square Cm 4.6 -Exudate Amt Medium -Exudate Type Serosanguineous -Wound Margin Distinct, Outline Attached -Granulation Amt Medium (34-66%) -Granulation Quality Red -Necrosis Amt Medium (34-66%) -Necrotic Tissue Type Adherent Slough -Texture (Bren-wound Skin Appearance) Assessed, Scarring -Moisture (Bren-wound Skin Appearance) Assessed,Dry/ Scaly -Color (Bren-wound Skin Appearance) No Abnormality, Assessed -Temperature (Bren-wound Skin No Abnormality Appearance) (Pt Warm) -Tenderness on Palpation (Bren-wound No Skin Appearance) -Ulcer Cleansing Rinsed/ Irrigated with Saline -Foul Odor after Cleansing No -Anesthetic Used 5% Lidocaine Gel 7-left posterior leg -Current Size (cm) - Length 2.5 -Current Size (cm) - Width 2 -Current Size (cm) - Depth 0.1 -Total Square Cm 5.0 -Wound Margin Distinct, Outline Attached -Granulation Amt Medium (34-66%) -Granulation Quality Red -Necrosis Amt Medium (34-66%) -Necrotic Tissue Type Adherent Slough -Texture (Bren-wound Skin Appearance) Assessed, Scarring -Moisture (Bren-wound Skin Appearance) Assessed, Maceration,Dry/ Scaly -Color (Bren-wound Skin Appearance) No Abnormality, Assessed -Temperature (Bren-wound Skin No Abnormality Appearance) (Pt Warm) -Tenderness on Palpation (Bren-wound No Skin Appearance) -Ulcer Cleansing Rinsed/ Irrigated with Saline -Foul Odor after Cleansing No -Anesthetic Used 5% Lidocaine Gel 6-left heel -Current Size (cm) - Length 2.8 -Current Size (cm) - Width 4.5 -Current Size (cm) - Depth 0.1 -Total Square Cm 12.60 -Exudate Amt Medium -Exudate Type Serosanguineous -Wound Margin Distinct, Outline Attached -Granulation Amt Medium (34-66%) -Granulation Quality Red -Necrosis Amt Medium (34-66%) -Necrotic Tissue Type Adherent Slough -Texture (Bren-wound Skin Appearance) Assessed, Scarring -Moisture (Bren-wound Skin Appearance) Assessed, Maceration,Dry/ Scaly -Temperature (Bren-wound Skin No Abnormality Appearance) (Pt Warm) -Tenderness on Palpation (Bren-wound No Skin Appearance) -Ulcer Cleansing Rinsed/ Irrigated with Saline -Foul Odor after Cleansing No -Anesthetic Used 5% Lidocaine Gel WC - Nurse 2 - General Ulcer CM Notes Start: 07/06/21 09:36 Freq: Status: Active Protocol: Activity Type Activity Date Activity User E-Sign Co-Sign Detail Recorded Client Recorded Date Recorded By Document 07/06/21 10:16 PL Desktop 07/06/21 10:19 PL 07/06/21 10:16 Wound Center Nurse 2 8-right posterior leg -Time 10:00 -Correct Patient Yes -Correct Side, Site, Position Yes -Correct Procedure Yes -Procedure Performed Yes -Type of Procedure Debridement -Clinical Debridement Subcutaneous -Tissue Removed Subcutaneous -Post Debridement (cm) - Length 2.0 -Post Debridement (cm) - Width 2.3 -Post Debridement (cm) - Depth 0.1 -Total Square (Post) (cm) 4.60 -Area of Debridement (cm) - Length 2.0 -Area of Debridement (cm) - Width 2.3 -Total Square (Area) (cm) 4.60 -Tunneling No -Undermining/Tunneling No -Circular Undermining No -Wound/Ulcer Outcome Not Healed -Ulcer Cleansing Rinsed/ Irrigated with Saline -Foul Odor after Cleansing No -Bioengineered Tissue No -Bleeding Controlled with Pressure -Treatment Response Procedure Tolerated Well -Debridement - Subq, 1st 20sq cm No 7-left posterior leg -Time 10:00 -Correct Patient Yes -Correct Side, Site, Position Yes -Correct Procedure Yes -Procedure Performed Yes -Type of Procedure Debridement -Clinical Debridement Subcutaneous -Tissue Removed Subcutaneous -Post Debridement (cm) - Length 2.5 -Post Debridement (cm) - Width 2.0 -Post Debridement (cm) - Depth 0.1 -Total Square (Post) (cm) 5.00 -Area of Debridement (cm) - Length 2.5 -Area of Debridement (cm) - Width 2.0 -Total Square (Area) (cm) 5.00 -Tunneling No -Undermining/Tunneling No -Circular Undermining No -Wound/Ulcer Outcome Not Healed -Ulcer Cleansing Rinsed/ Irrigated with Saline -Foul Odor after Cleansing No -Bioengineered Tissue No -Bleeding Controlled with Pressure -Treatment Response Procedure Tolerated Well -Debridement - Subq, 1st 20sq cm No 6-left heel -Time 10:00 -Correct Patient Yes -Correct Side, Site, Position Yes -Correct Procedure Yes -Procedure Performed Yes -Type of Procedure Debridement -Clinical Debridement Subcutaneous -Tissue Removed Subcutaneous -Post Debridement (cm) - Length 2.8 -Post Debridement (cm) - Width 4.5 -Post Debridement (cm) - Depth 0.1 -Total Square (Post) (cm) 12.60 -Area of Debridement (cm) - Length 2.8 -Area of Debridement (cm) - Width 4.5 -Total Square (Area) (cm) 12.60 -Tunneling No -Undermining/Tunneling No -Circular Undermining No -Wound/Ulcer Outcome Not Healed -Ulcer Cleansing Rinsed/ Irrigated with Saline -Foul Odor after Cleansing No -Bioengineered Tissue No -Bleeding Controlled with Pressure -Treatment Response Procedure Tolerated Well -Debridement - Subq, 1st 20sq cm Yes Pain Scale: 0-10 Numeric Is Patient Pain Free? Yes Assessment/Plan Assessment/Plan (1) Pressure ulcer of left heel, stage 2: CODE(S): L89.622 - Pressure ulcer of left heel, stage 2 (2) Chronic kidney disease (CKD) stage G3a/A2, moderately decreased glomerular filtration rate (GFR) between 45-59 mL/min/1.73 square meter and albuminuria creatinine ratio between 30-299 mg/g: CODE(S): N18.31 - Chronic kidney disease, stage 3a (3) Type II diabetes mellitus: CODE(S): E11.9 - Type 2 diabetes mellitus without complications QUALIFIERS: Diabetes mellitus intermediate insulin use: unspecified intermediate insulin use status Diabetes mellitus complication status: with neurologic complications Diabetes mellitus complication detail: with polyneuropathy Qualified Code(s): E11.42 - Type 2 diabetes mellitus with diabetic polyneuropathy (4) Pain in left foot: CODE(S): M79.672 - Pain in left foot PLAN: This is a 60-year-old female presenting to the wound care center today with new pressure ulcer of the left heel. Patient has history of left heel ulceration with osteomyelitis back in 2019. She underwent extensive course of IV antibiotics and followed up in the wound care center with Dr. Brown who was able to get the patient to heal with advanced wound care products and weekly wound care visits. Following replacement of her hip in January 2021 she subsequently reopened her left plantar heel wound secondary to placing more pressure at this limb site during her physical therapy and recovery process. Her has been helping her change the dressings to the left lower extremity/heel daily. Palpable pedal pulses on examination today Ulceration to the left plantar heel measures 2.0 cm x 3.5 cm x 0.1 cm. Ulceration site demonstrates a pink wound base with scant mixed fibrotic tissue throughout the wound bed. Ulceration site demonstrates no localized erythema, no malodor, no purulent drainage, no other localized signs of infection. Wound margins demonstrate scant yellow crusting and hyperkeratosis. Ulceration site was sharply debrided with a 3 mm curette removing scant yellow crusting, hyperkeratosis, fibrous, devitalized subcutaneous, biofilm, slough. This was tolerated well. She also has an abrasion to the posterior leg measuring with no localized signs of infection. She also has an anterior ankle wound secondary to tight bandage dressings which remains healed today. She has a new posterior leg abrasion to the right leg which demonstrates no localized signs of infection. Ulceration site left heel dressed with Samantha, Aquacel Ag and dry sterile dressing. Daniel wrap applied to the left lower extremity to aid in control of edema. Dressings to be changed daily. She is to continue to offload the left heel as she continues to recover from her hip replacement. I do not feel that her is adequately changing her dressings to the site as dressings from last week were still intact and dirty. I am seeking approval for visiting nursing to come to her house to perform these dressing changes daily. I discussed with her localized signs of infection. She is to observe for any erythema or redness moving up the leg, malodor to the ulceration site, purulent drainage from the ulceration site, increased pain to the left heel, or if she experiences any nausea, vomiting, fever, chills or other constitutional symptoms that these are signs of a progressing infection and she needs to report to the ED. She voices understanding of this. I reviewed and discussed his case today. Debridement was performed today as noted in the clinical panel to all of the ulcer sites. The following work up and care recommendations were made: Dressing: Samantha and Aquacel Ag-left heel; Aquacel Ag right anterior ankle dry sterile dressings and an Daniel wrap Wash: Soap and water Tissue growth optimization: Samantha Offload: Offloading surgical shoe with heel cut out Vascular: Palpable pedal pulses Edema: Elevation of lower extremities and an Daniel wrap Infection: No localized signs of infection Pain: Patient may take [id number] Tylenol extra strength for pain control Host factors: Diabetes mellitus type 2, history of osteomyelitis left heel I answered all the patient's questions. To return to the wound healing center in 1 week or call sooner if the patient has any questions or concerns. Note: [employer] speech recognition refining machine operator software was used to create portions of this document. Sound-alike and misspelled words, as well as other refining machine operator errors may be contained in the documentation.
[2021-07-13 09:52] VITALS: BP 151/73; PULSE 69; TEMP 35.3
--- NOTE | 2021-07-13 10:26 | PCM.WC.PN ---
History of Present Illness Date of Service: 07/13/21 Chief Complaint: left heel ulcer left ankle ulcer- healed History of Wound: In October 2019, patient had rubbing in shoes while shopping which led to a blister that developed into an ulceration. Patient was then seen by Dewey Amezquita.P.Usha. for wound care. Patient then became infected and was admitted to the hospital. Patient was noted to have OM on MRI. Patient wanted to avoid surgery so a terminal carman course of appropriate IV antibiotics was the treatment chosen. Patient was also noted to have hyperglycemia and has worked with hospitalist and PCP to try to get better control. Blood sugar levels remain elevated. Patient also had LEAS obtained in the hospital which suggested patient had the proper blood flow to allow healing. Patient has since finished terminal carman course of antibiotics. Patient has since been seen on a weekly basis in office with progression and regression of wound noted over the weeks. Patient has tried various dressing options including wet to dry and santyl. The most progress was noted with Santyl but patient ran out and was unable to refill due to insurance issues. During which time the wound regressed. She also has an offloading surgical shoe and offloading boot to relieve pressure. Patient care is henceforth being carried out at the wound care center. Patient not currently on any antibiotics. Patient has since began skin graft aplications significant improvement is been noted to her foot overall. Patient has finished epifix graft applications with some very small remaining wound noted to left heel. Patient has new wounds noted to bilateral third digits. The right 3rd digit wound has healed. Her left ankle ulcer remains healed Patient relates that ambulation is getting easier and she is rebuilding her strength slowly. She has not had any worsening of minor remaining heel wound since beginning ambulation again. 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 Her has been helping her change the dressings daily to the left heel. She presents to the wound care center today for continued care of her left heel ulceration. Subjective Subjective This is a 60-year-old female who presents to the wound care center for follow-up of her left heel ulceration. She states that visiting nursing has been coming for her dressing changes as well as her assisting in dressing changes daily to the site. She is remaining compliant in her offloading status to the left heel. She denies any constitutional symptoms today. She states that physical therapy continues to come to her house to work in her rehab. She has no other complaints today. Objective Data Objective Data Vital Signs: Vital Signs Temp Pulse Resp BP 95.6 F L 69 18 151/73 H 07/13/21 09:52 07/13/21 09:52 06/30/21 00:10 07/13/21 09:52 Physical Exam Const alert, oriented x3 and no apparent distress General Appearance: cooperative and comfortable HEENT normocephalic Eyes General Eye: normal appearance of both eyes Neck General: normal visual inspection Lymph Lymphatic: no lymphadenopathy noted and no lymphedema noted Resp normal respiratory effort Cardio regular rate and regular rhythm Extremity normal capillary refill and no calf tenderness General Extremity: edema bilateral lower extremity Skin no rashes or lesions noted and skin turgor normal Wound Narrative: Right posterior leg abrasion with no localized signs of infection. Left lower extremity heel decubitus ulceration. Ulcerative site demonstrates pink wound base with scant fibrotic tissue throughout the wound bed, with serosanguineous drainage, and no localized signs of infection. No palpable fluctuance noted to the left heel. Ulcerative site does have a scant yellow crusting covering the wound bed and dried hyperkeratotic tissue about the wound margins. Left lower extremity anterior ankle wound, secondary to bandaging, has healed. Neuro oriented x3 and moves all extremities Motor Exam: strength 5/5 throughout Debridement Note Debridement Note Wound debrided: Left heel Laterality: Left Wound Grade/Stage: Glasgow stage II Type of Debridement: Excisional debridement Anesthesia Used: 4% Lidocaine Solution Depth: Down to and including healthy tissue and in the subcutaneous layer Percentage of wound debrided: 100 Instrument Used: 3mm curette Tissue Removed: Fibrous, devitalized subcutaneous, biofilm, slough Severity: Fat Layer Exposed Amount of bleeding with debridement: Mild Bleeding Controlled with: Compression and gauze Patient tolerated procedure: Patient tolerated procedure well Post-Debridement Measurements and Additional Note: Post-Debridement Measurements/Treatment WC - Nurse 1 - General Ulcer Assessment Start: 07/06/21 09:36 Freq: Status: Active Protocol: MOOK Activity Type Activity Date Activity User E-Sign Co-Sign Detail Recorded Client Recorded Date Recorded By Document 07/06/21 09:36 ELIO [id number] 07/06/21 09:45 KR Document 07/13/21 09:52 DONITA [id number] 07/13/21 09:57 AK 07/06/21 07/13/21 09:36 09:52 WC - Today's Visit Information Type of service Follow-up Visit Follow-up Visit (Physician/CASUALTY CLAIM ADJUSTER (Physician/CASUALTY CLAIM ADJUSTER ) ) Arrival Mode Ambulatory Ambulatory, Walker Patient Identification Verified (Name & Yes Yes ) Patient Requires Transmission-Based No Precautions Safety Precautions NA Vital Signs Temperature (97.8 F-99.1 F) 97.5 F L 95.6 F L Temperature Source Temporal Temporal Pulse Rate (60-100) 73 69 Pulse Location Monitor Monitor Blood Pressure (90/60-120/80) 178/86 H 151/73 H Blood Pressure Mean (mm Hg) 116 99 Source Monitor Monitor Position Semi-Fowlers Blood Pressure Location Right Arm History Since Last Visit- (Skip if this is Patient's initial visit) Have you changed medications since your No No last visit? Any new allergies or adverse reactions No No Had a fall/change in ADL's that may No No increase risk of falls Signs or symptoms of abuse and/or No No neglect since last visit Have you been in the hospital since your No No last visit? Has dressing in place as prescribed Yes Yes Has compression in place as prescribed Yes Yes Has offloadiing in place as prescribed N/A N/A Experienced any changes in pain level or No No management Left Footwear Slipper Regular Shoe Right Footwear Slipper Regular Shoe Pain Scale: 0-10 Numeric Is Patient Pain Free? Yes No - Nurse 1 - General Ulcer Measurement Start: 07/06/21 09:36 Freq: Status: Active Protocol: Activity Type Activity Date Activity User E-Sign Co-Sign Detail Recorded Client Recorded Date Recorded By Document 07/06/21 09:36 ELIO [id number] 07/06/21 09:45 ELIO Document 07/13/21 09:52 DONITA [id number] 07/13/21 09:57 DONITA 07/06/21 07/13/21 09:36 09:52 Wound Center Nurse 1 8-right posterior leg -Combined with other wound No -Current Size (cm) - Length 2 -Current Size (cm) - Width 2.3 -Current Size (cm) - Depth 0.1 -Total Square Cm 4.6 -Photo Taken No -Tunneling No -Undermining/Tunneling No -Circular Undermining No -Change in Wound Grade/Stage No -Exudate Amt Medium -Exudate Type Serosanguineous -Wound Margin Distinct, Outline Attached -Granulation Amt Medium (34-66%) -Granulation Quality Red N/A -Slough/Fibrin No -Necrosis Amt Medium (34-66%) None Present (0 %) -Necrotic Tissue Type Adherent Slough -Structure Exposed N/A -Texture (Bren-wound Skin Appearance) Assessed, No Abnormality, Scarring Assessed -Moisture (Bren-wound Skin Appearance) Assessed,Dry/ No Abnormality, Scaly Assessed -Color (Bren-wound Skin Appearance) No Abnormality, No Abnormality, Assessed Assessed -Temperature (Bren-wound Skin No Abnormality No Abnormality Appearance) (Pt Warm) (Pt Warm) -Tenderness on Palpation (Bren-wound No No Skin Appearance) -Ulcer Cleansing Rinsed/ Rinsed/ Irrigated with Irrigated with Saline Saline -Foul Odor after Cleansing No No -Anesthetic Used 5% Lidocaine 4% Lidocaine Gel Solution 7-left posterior leg -Combined with other wound No -Current Size (cm) - Length 2.5 -Current Size (cm) - Width 2 -Current Size (cm) - Depth 0.1 -Total Square Cm 5.0 -Photo Taken No -Tunneling No -Undermining/Tunneling No -Circular Undermining No -Change in Wound Grade/Stage No -Exudate Amt None Present -Wound Margin Distinct, Outline Attached -Granulation Amt Medium (34-66%) None Present (0 %) -Granulation Quality Red N/A -Slough/Fibrin No -Necrosis Amt Medium (34-66%) None Present (0 %) -Necrotic Tissue Type Adherent Slough -Structure Exposed N/A -Texture (Bren-wound Skin Appearance) Assessed, No Abnormality, Scarring Assessed -Moisture (Bren-wound Skin Appearance) Assessed, No Abnormality, Maceration,Dry/ Assessed Scaly -Color (Bren-wound Skin Appearance) No Abnormality, No Abnormality, Assessed Assessed -Temperature (Bren-wound Skin No Abnormality No Abnormality Appearance) (Pt Warm) (Pt Warm) -Tenderness on Palpation (Bren-wound No No Skin Appearance) -Ulcer Cleansing Rinsed/ Rinsed/ Irrigated with Irrigated with Saline Saline -Foul Odor after Cleansing No No -Anesthetic Used 5% Lidocaine Gel 6-left heel -Combined with other wound No -Current Size (cm) - Length 2.8 1.4 -Current Size (cm) - Width 4.5 4.5 -Current Size (cm) - Depth 0.1 0.1 -Total Square Cm 12.60 6.30 -Photo Taken No -Tunneling No -Undermining/Tunneling No -Circular Undermining No -Change in Wound Grade/Stage No -Exudate Amt Medium Medium -Exudate Type Serosanguineous Serosanguineous -Wound Margin Distinct, Distinct, Outline Outline Attached Attached -Granulation Amt Medium (34-66%) Large (67-100%) -Granulation Quality Red Pale,[place] -Slough/Fibrin Yes -Necrosis Amt Medium (34-66%) Small (1-33%) -Necrotic Tissue Type Adherent Slough Adherent Slough -Structure Exposed N/A -Texture (Bren-wound Skin Appearance) Assessed, Assessed,Callus Scarring -Moisture (Bren-wound Skin Appearance) Assessed, No Abnormality, Maceration,Dry/ Assessed Scaly -Color (Bren-wound Skin Appearance) No Abnormality, Assessed -Temperature (Bren-wound Skin No Abnormality No Abnormality Appearance) (Pt Warm) (Pt Warm) -Tenderness on Palpation (Bren-wound No No Skin Appearance) -Ulcer Cleansing Rinsed/ Rinsed/ Irrigated with Irrigated with Saline Saline -Foul Odor after Cleansing No No -Anesthetic Used 5% Lidocaine 4% Lidocaine Gel Solution Right Calf (cm) 47 Right Ankle (cm) 28 Left Calf (cm) 46 Left Ankle (cm) 28 WC - Nurse 2 - General Ulcer CM Notes Start: 07/06/21 09:36 Freq: Status: Active Protocol: Activity Type Activity Date Activity User E-Sign Co-Sign Detail Recorded Client Recorded Date Recorded By Document 07/06/21 10:16 PL Desktop 07/06/21 10:19 PL 07/06/21 10:16 Wound Center Nurse 2 8-right posterior leg -Time 10:00 -Correct Patient Yes -Correct Side, Site, Position Yes -Correct Procedure Yes -Procedure Performed Yes -Type of Procedure Debridement -Clinical Debridement Subcutaneous -Tissue Removed Subcutaneous -Post Debridement (cm) - Length 2.0 -Post Debridement (cm) - Width 2.3 -Post Debridement (cm) - Depth 0.1 -Total Square (Post) (cm) 4.60 -Area of Debridement (cm) - Length 2.0 -Area of Debridement (cm) - Width 2.3 -Total Square (Area) (cm) 4.60 -Tunneling No -Undermining/Tunneling No -Circular Undermining No -Wound/Ulcer Outcome Not Healed -Ulcer Cleansing Rinsed/ Irrigated with Saline -Foul Odor after Cleansing No -Bioengineered Tissue No -Bleeding Controlled with Pressure -Treatment Response Procedure Tolerated Well -Debridement - Subq, 1st 20sq cm No 7-left posterior leg -Time 10:00 -Correct Patient Yes -Correct Side, Site, Position Yes -Correct Procedure Yes -Procedure Performed Yes -Type of Procedure Debridement -Clinical Debridement Subcutaneous -Tissue Removed Subcutaneous -Post Debridement (cm) - Length 2.5 -Post Debridement (cm) - Width 2.0 -Post Debridement (cm) - Depth 0.1 -Total Square (Post) (cm) 5.00 -Area of Debridement (cm) - Length 2.5 -Area of Debridement (cm) - Width 2.0 -Total Square (Area) (cm) 5.00 -Tunneling No -Undermining/Tunneling No -Circular Undermining No -Wound/Ulcer Outcome Not Healed -Ulcer Cleansing Rinsed/ Irrigated with Saline -Foul Odor after Cleansing No -Bioengineered Tissue No -Bleeding Controlled with Pressure -Treatment Response Procedure Tolerated Well -Debridement - Subq, 20sq cm No 6-left heel -Time 10:00 -Correct Patient Yes -Correct Side, Site, Position Yes -Correct Procedure Yes -Procedure Performed Yes -Type of Procedure Debridement -Clinical Debridement Subcutaneous -Tissue Removed Subcutaneous -Post Debridement (cm) - Length 2.8 -Post Debridement (cm) - Width 4.5 -Post Debridement (cm) - Depth 0.1 -Total Square (Post) (cm) 12.60 -Area of Debridement (cm) - Length 2.8 -Area of Debridement (cm) - Width 4.5 -Total Square (Area) (cm) 12.60 -Tunneling No -Undermining/Tunneling No -Circular Undermining No -Wound/Ulcer Outcome Not Healed -Ulcer Cleansing Rinsed/ Irrigated with Saline -Foul Odor after Cleansing No -Bioengineered Tissue No -Bleeding Controlled with Pressure -Treatment Response Procedure Tolerated Well -Debridement - Subq, 1st 20sq cm Yes Pain Scale: 0-10 Numeric Is Patient Pain Free? Yes WC - Nurse 3 - General Ulcer D/C NN Start: 07/06/21 09:36 Freq: Status: Active Protocol: Activity Type Activity Date Activity User E-Sign Co-Sign Detail Recorded Client Recorded Date Recorded By Document 07/13/21 10:18 ML [id number] 07/13/21 10:19 ML 07/13/21 10:18 Wound Care Nurse 3 6-left heel -Ulcer Cleansing Rinsed/ Irrigated with Saline -Primary Dressing Applied Aquacel AG 4x4, Promogran Samantha Matter -Primary Dressing Covered/Secured with Dry Gauze & Roll Gauze, Secured with Tape -Aquacel AG 4x4 1 -Promogran Samantha Matter 1 Left -Tubular Bandage Double Layer -Size of Tubigrip Used Size E -Size E ($) 2 Pain Scale: 0-10 Numeric Is Patient Pain Free? Yes Assessment/Plan Assessment/Plan (1) Pressure ulcer of left heel, stage 2: CODE(S): L89.622 - Pressure ulcer of left heel, stage 2 (2) Chronic kidney disease (CKD) stage G3a/A2, moderately decreased glomerular filtration rate (GFR) between 45-59 mL/min/1.73 square meter and albuminuria creatinine ratio between 30-299 mg/g: CODE(S): N18.31 - Chronic kidney disease, stage 3a (3) Type II diabetes mellitus: CODE(S): E11.9 - Type 2 diabetes mellitus without complications QUALIFIERS: Diabetes mellitus terminal carman insulin use: unspecified shelter insulin use status Diabetes mellitus complication status: with neurologic complications Diabetes mellitus complication detail: with polyneuropathy Qualified Code(s): E11.42 - Type 2 diabetes mellitus with diabetic polyneuropathy (4) Pain in left foot: CODE(S): M79.672 - Pain in left foot PLAN: This is a 60-year-old female presenting to the wound care center today with new pressure ulcer of the left heel. Patient has history of left heel ulceration with osteomyelitis back in 2019. She underwent extensive course of IV antibiotics and followed up in the wound care center with Dr. Brown who was able to get the patient to heal with advanced wound care products and weekly wound care visits. Following replacement of her hip in January 2021 she subsequently reopened her left plantar heel wound secondary to placing more pressure at this limb site during her physical therapy and recovery process. Her has been helping her change the dressings to the left lower extremity/heel daily. Palpable pedal pulses on examination today Ulceration to the left plantar heel measures 2.0 cm x 2.3 cm x 0.1 cm. Ulceration site demonstrates a pink wound base with scant mixed fibrotic tissue throughout the wound bed. There is evidence of new skin formation and parts of the wound bed. Ulceration site demonstrates no localized erythema, malodor, or purulent drainage, no other localized signs of infection. Wound margins demonstrate scant yellow crusting and hyperkeratosis. Ulceration site was sharply debrided with a 3 mm curette removing scant yellow crusting, hyperkeratosis, fibrous, devitalized subcutaneous, biofilm, slough. This was tolerated well. She also has an abrasion to the posterior leg that has healed with no localized signs of infection. Her anterior ankle wound secondary to tight bandage dressings remains healed today. Posterior right leg abrasion has healed with no localized signs of infection. Ulceration site left heel dressed with Samantha, Aquacel Ag and dry sterile dressing. Daniel wrap applied to the left lower extremity to aid in control of edema. Dressings to be changed daily. She is to continue to offload the left heel as she continues to recover from her hip replacement. Visiting nursing is coming to assist with her dressing changes daily. Improvement in dressings and ulcerative site noted from previous week, recommend continued visiting nursing. I discussed with her localized signs of infection. She is to observe for any erythema or redness moving up the leg, malodor to the ulceration site, purulent drainage from the ulceration site, increased pain to the left heel, or if she experiences any nausea, vomiting, fever, chills or other constitutional symptoms that these are signs of a progressing infection and she needs to report to the ED. She voices understanding of this. I reviewed and discussed his case today. Debridement was performed today as noted in the clinical panel to all of the ulcer sites. The following work up and care recommendations were made: Dressing: Samantha and Aquacel Ag-left heel; Aquacel Ag right anterior ankle dry sterile dressings and an Daniel wrap Wash: Soap and water Tissue growth optimization: Samantha Offload: Offloading surgical shoe with heel cut out Vascular: Palpable pedal pulses Edema: Elevation of lower extremities and an Daniel wrap Infection: No localized signs of infection Pain: Patient may take [id number] Tylenol extra strength for pain control Host factors: Diabetes mellitus type 2, history of osteomyelitis left heel I answered all the patient's questions. To return to the wound healing center in 1 week or call sooner if the patient has any questions or concerns. Note: [employer] speech recognition corporate wellness coordinator software was used to create portions of this document. Sound-alike and misspelled words, as well as other corporate wellness coordinator errors may be contained in the documentation.
[2021-07-20 09:44] VITALS: BP 149/57; PULSE 82; TEMP 36.7
--- NOTE | 2021-07-20 12:44 | PN.PCM_ITS ---
History of Present Illness Date of Service: 07/20/21 Chief Complaint: left heel ulcer left ankle ulcer- healed History of Wound: In October 2019, patient had rubbing in shoes while shopping which led to a blister that developed into an ulceration. Patient was then seen by Dewey Amezquita.P.M. for wound care. Patient then became infected and was admitted to the hospital. Patient was noted to have OM on MRI. Patient wanted to avoid surgery so a long term care phlebotomist course of appropriate IV antibiotics was the treatment chosen. Patient was also noted to have hyperglycemia and has worked with hospitalist and PCP to try to get better control. Blood sugar levels remain elevated. Patient also had LEAS obtained in the hospital which suggested patient had the proper blood flow to allow healing. Patient has since finished long term care phlebotomist course of antibiotics. Patient has since been seen on a weekly basis in office with progression and regression of wound noted over the weeks. Patient has tried various dressing options including wet to dry and santyl. The most progress was noted with Santyl but patient ran out and was unable to refill due to insurance issues. During which time the wound regressed. She also has an offloading surgical shoe and offloading boot to relieve pressure. Patient care is henceforth being carried out at the wound care center. Patient not currently on any antibiotics. Patient has since began skin graft aplications significant improvement is been noted to her foot overall. Patient has finished epifix graft applications with some very small remaining wound noted to left heel. Patient has new wounds noted to bilateral third digits. The right 3rd digit wound has healed. Her left ankle ulcer remains healed Patient relates that ambulation is getting easier and she is rebuilding her strength slowly. She has not had any worsening of minor remaining heel wound since beginning ambulation again. 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 Her has been helping her change the dressings daily to the left heel. She presents to the wound care center today for continued care of her left heel ulceration. Subjective Subjective This is a 60-year-old female who presents to the wound care center for follow-up of her left heel ulceration. She states that visiting nursing has been coming for her dressing changes as well as her assisting in dressing changes daily to the site. She is remaining compliant in her offloading status to the left heel. She denies any constitutional symptoms today. She states that physical therapy has completed her rehab and will no longer be seeing her. She has no other complaints today. Objective Data Objective Data Vital Signs: Vital Signs Temp Pulse Resp BP 98.0 F 82 18 149/57 H 07/20/21 09:44 07/20/21 09:44 06/30/21 00:10 07/20/21 09:44 Physical Exam Const alert, oriented x3 and no apparent distress General Appearance: cooperative and comfortable HEENT normocephalic Eyes General Eye: normal appearance of both eyes Neck General: normal visual inspection Lymph Lymphatic: no lymphadenopathy noted and no lymphedema noted Resp normal respiratory effort Cardio regular rate and regular rhythm Extremity normal capillary refill and no calf tenderness General Extremity: edema bilateral lower extremity Skin no rashes or lesions noted and skin turgor normal Wound Narrative: Right posterior leg abrasion with no localized signs of infection. Left lower extremity heel decubitus ulceration. Ulcerative site demonstrates pink wound base with scant fibrotic tissue throughout the wound bed, with serosanguineous drainage, and no localized signs of infection. No palpable fluctuance noted to the left heel. Ulcerative site does have a scant yellow crusting covering the wound bed and dried hyperkeratotic tissue about the wound margins. Left lower extremity anterior ankle wound, secondary to bandaging, has healed. Neuro oriented x3 and moves all extremities Motor Exam: strength 5/5 throughout Debridement Note Debridement Note Wound debrided: Left heel Laterality: Left Wound Grade/Stage: Glasgow stage II Type of Debridement: Excisional debridement Anesthesia Used: 4% Lidocaine Solution Depth: Down to and including healthy tissue and in the subcutaneous layer Percentage of wound debrided: 100 Instrument Used: #15 blade Tissue Removed: Fibrous, devitalized subcutaneous, biofilm, slough Severity: Fat Layer Exposed Amount of bleeding with debridement: Mild Bleeding Controlled with: Compression and gauze and Silver Nitrate Patient tolerated procedure: Patient tolerated procedure well Post-Debridement Measurements and Additional Note: Post-Debridement Measurements/Treatment WC - Nurse 1 - General Ulcer Assessment Start: 07/06/21 09:36 Freq: Status: Active Protocol: MOOK Activity Type Activity Date Activity User E-Sign Co-Sign Detail Recorded Client Recorded Date Recorded By Document 07/06/21 09:36 ELIO [id number] 07/06/21 09:45 KR Document 07/13/21 09:52 AK [id number] 07/13/21 09:57 AK Document 07/20/21 09:44 KR [id number] 07/20/21 09:54 KR 07/06/21 07/13/21 07/20/21 09:36 09:52 09:44 - Today's Visit Information Type of service Follow-up Visit Follow-up Visit Follow-up Visit (Physician/DROSS PULLER (Physician/DROSS PULLER (Physician/DROSS PULLER ) ) ) Arrival Mode Ambulatory Ambulatory, Ambulatory, Walker Walker Patient Identification Verified (Name & Yes Yes Yes ) Patient Requires Transmission-Based No Precautions Safety Precautions NA Vital Signs Temperature (97.8 F-99.1 F) 97.5 F L 95.6 F L 98.0 F Temperature Source Temporal Temporal Temporal Pulse Rate (60-100) 73 69 82 Pulse Location Monitor Monitor Monitor Blood Pressure (90/60-120/80) 178/86 H 151/73 H 149/57 H Blood Pressure Mean (mm Hg) 116 99 87 Source Monitor Monitor Monitor Position Semi-Fowlers Semi-Fowlers Blood Pressure Location Right Arm Right Arm History Since Last Visit- (Skip if this is Patient's initial visit) Have you changed medications since your No No No last visit? Any new allergies or adverse reactions No No No Had a fall/change in ADL's that may No No No increase risk of falls Signs or symptoms of abuse and/or No No No neglect since last visit Have you been in the hospital since your No No No last visit? Has dressing in place as prescribed Yes Yes Yes Has compression in place as prescribed Yes Yes Yes Has offloadiing in place as prescribed N/A N/A N/A Experienced any changes in pain level or No No No management Left Footwear Slipper Regular Shoe Regular Shoe Right Footwear Slipper Regular Shoe Regular Shoe Pain Scale: 0-10 Numeric Is Patient Pain Free? Yes No Yes - Nurse 1 - General Ulcer Measurement Start: 07/06/21 09:36 Freq: Status: Active Protocol: Activity Type Activity Date Activity User E-Sign Co-Sign Detail Recorded Client Recorded Date Recorded By Document 07/06/21 09:36 KR [id number] 07/06/21 09:45 KR Document 07/13/21 09:52 AK [id number] 07/13/21 09:57 AK Document 07/20/21 09:44 KR [id number] 07/20/21 09:54 KR 07/06/21 07/13/21 07/20/21 09:36 09:52 09:44 Wound Center Nurse 1 # 10 -Current Size (cm) - Length 7.5 -Current Size (cm) - Width 2.7 -Current Size (cm) - Depth 0.1 -Total Square Cm 20.25 -Exudate Amt Small -Exudate Type Serosanguineous -Wound Margin Distinct, Outline Attached -Granulation Amt Small (1-33%) -Granulation Quality Red -Necrosis Amt Medium (34-66%) -Necrotic Tissue Type Adherent Slough -Texture (Bren-wound Skin Appearance) Assessed, Scarring -Moisture (Bren-wound Skin Appearance) No Abnormality, Assessed -Color (Bren-wound Skin Appearance) No Abnormality, Assessed -Temperature (Bren-wound Skin No Abnormality Appearance) (Pt Warm) -Tenderness on Palpation (Bren-wound No Skin Appearance) -Ulcer Cleansing Rinsed/ Irrigated with Saline -Foul Odor after Cleansing No -Anesthetic Used 4% Lidocaine Solution,5% Lidocaine Gel #9 Right Lower Extremity -Current Size (cm) - Length 12 -Current Size (cm) - Width 20 -Current Size (cm) - Depth 0.1 -Total Square Cm 240 -Exudate Amt Small -Exudate Type Serosanguineous -Wound Margin Distinct, Outline Attached -Granulation Amt None Present (0 %) -Necrosis Amt None Present (0 %) -Texture (Bren-wound Skin Appearance) Assessed, Scarring -Moisture (Bren-wound Skin Appearance) No Abnormality, Assessed -Color (Bren-wound Skin Appearance) No Abnormality, Assessed -Temperature (Bren-wound Skin No Abnormality Appearance) (Pt Warm) -Tenderness on Palpation (Bren-wound No Skin Appearance) -Ulcer Cleansing Rinsed/ Irrigated with Saline -Foul Odor after Cleansing No -Anesthetic Used 5% Lidocaine Gel 8-right posterior leg -Combined with other wound No -Current Size (cm) - Length 2 -Current Size (cm) - Width 2.3 -Current Size (cm) - Depth 0.1 -Total Square Cm 4.6 -Photo Taken No -Tunneling No -Undermining/Tunneling No -Circular Undermining No -Change in Wound Grade/Stage No -Exudate Amt Medium -Exudate Type Serosanguineous -Wound Margin Distinct, Outline Attached -Granulation Amt Medium (34-66%) -Granulation Quality Red N/A -Slough/Fibrin No -Necrosis Amt Medium (34-66%) None Present (0 %) -Necrotic Tissue Type Adherent Slough -Structure Exposed N/A -Texture (Bren-wound Skin Appearance) Assessed, No Abnormality, Scarring Assessed -Moisture (Bren-wound Skin Appearance) Assessed,Dry/ No Abnormality, Scaly Assessed -Color (Bren-wound Skin Appearance) No Abnormality, No Abnormality, Assessed Assessed -Temperature (Bren-wound Skin No Abnormality No Abnormality Appearance) (Pt Warm) (Pt Warm) -Tenderness on Palpation (Bren-wound No No Skin Appearance) -Ulcer Cleansing Rinsed/ Rinsed/ Irrigated with Irrigated with Saline Saline -Foul Odor after Cleansing No No -Anesthetic Used 5% Lidocaine 4% Lidocaine Gel Solution 7-left posterior leg -Combined with other wound No -Current Size (cm) - Length 2.5 -Current Size (cm) - Width 2 -Current Size (cm) - Depth 0.1 -Total Square Cm 5.0 -Photo Taken No -Tunneling No -Undermining/Tunneling No -Circular Undermining No -Change in Wound Grade/Stage No -Exudate Amt None Present -Wound Margin Distinct, Outline Attached -Granulation Amt Medium (34-66%) None Present (0 %) -Granulation Quality Red N/A -Slough/Fibrin No -Necrosis Amt Medium (34-66%) None Present (0 %) -Necrotic Tissue Type Adherent Slough -Structure Exposed N/A -Texture (Bren-wound Skin Appearance) Assessed, No Abnormality, Scarring Assessed -Moisture (Bren-wound Skin Appearance) Assessed, No Abnormality, Maceration,Dry/ Assessed Scaly -Color (Bren-wound Skin Appearance) No Abnormality, No Abnormality, Assessed Assessed -Temperature (Bren-wound Skin No Abnormality No Abnormality Appearance) (Pt Warm) (Pt Warm) -Tenderness on Palpation (Bren-wound No No Skin Appearance) -Ulcer Cleansing Rinsed/ Rinsed/ Irrigated with Irrigated with Saline Saline -Foul Odor after Cleansing No No -Anesthetic Used 5% Lidocaine Gel 6-left heel -Combined with other wound No -Current Size (cm) - Length 2.8 1.4 3 -Current Size (cm) - Width 4.5 4.5 3.5 -Current Size (cm) - Depth 0.1 0.1 0.1 -Total Square Cm 12.60 6.30 10.5 -Photo Taken No -Tunneling No -Undermining/Tunneling No -Circular Undermining No -Change in Wound Grade/Stage No -Exudate Amt Medium Medium Small -Exudate Type Serosanguineous Serosanguineous Serosanguineous -Wound Margin Distinct, Distinct, Distinct, Outline Outline Outline Attached Attached Attached -Granulation Amt Medium (34-66%) Large (67-100%) Medium (34-66%) -Granulation Quality Red Pale,[place] Red -Slough/Fibrin Yes -Necrosis Amt Medium (34-66%) Small (1-33%) Medium (34-66%) -Necrotic Tissue Type Adherent Slough Adherent Slough Adherent Slough -Structure Exposed N/A -Texture (Bren-wound Skin Appearance) Assessed, Assessed,Callus Assessed, Scarring Scarring -Moisture (Bren-wound Skin Appearance) Assessed, No Abnormality, Assessed,Dry/ Maceration,Dry/ Assessed Scaly Scaly -Color (Bren-wound Skin Appearance) No Abnormality, No Abnormality, Assessed Assessed -Temperature (Bren-wound Skin No Abnormality No Abnormality No Abnormality Appearance) (Pt Warm) (Pt Warm) (Pt Warm) -Tenderness on Palpation (Bren-wound No No No Skin Appearance) -Ulcer Cleansing Rinsed/ Rinsed/ Rinsed/ Irrigated with Irrigated with Irrigated with Saline Saline Saline -Foul Odor after Cleansing No No No -Anesthetic Used 5% Lidocaine 4% Lidocaine 5% Lidocaine Gel Solution Gel Right Calf (cm) 47 40.5 Right Ankle (cm) 28 27 Left Calf (cm) 46 45 Left Ankle (cm) 28 25 WC - Nurse 2 - General Ulcer CM Notes Start: 07/06/21 09:36 Freq: Status: Active Protocol: Activity Type Activity Date Activity User E-Sign Co-Sign Detail Recorded Client Recorded Date Recorded By Document 07/06/21 10:16 PL Desktop 07/06/21 10:19 PL Document 07/13/21 12:39 PL [id number] 07/13/21 12:41 PL 07/06/21 07/13/21 10:16 12:39 Wound Center Nurse 2 8-right posterior leg -Time 10:00 -Correct Patient Yes -Correct Side, Site, Position Yes -Correct Procedure Yes -Procedure Performed Yes No -Type of Procedure Debridement -Clinical Debridement Subcutaneous -Tissue Removed Subcutaneous -Post Debridement (cm) - Length 2.0 -Post Debridement (cm) - Width 2.3 -Post Debridement (cm) - Depth 0.1 -Total Square (Post) (cm) 4.60 -Area of Debridement (cm) - Length 2.0 -Area of Debridement (cm) - Width 2.3 -Total Square (Area) (cm) 4.60 -Tunneling No -Undermining/Tunneling No -Circular Undermining No -Wound/Ulcer Outcome Not Healed Healed- Epithelialized -Ulcer Cleansing Rinsed/ Irrigated with Saline -Foul Odor after Cleansing No -Bioengineered Tissue No -Bleeding Controlled with Pressure -Treatment Response Procedure Tolerated Well -Debridement - Subq, 1st 20sq cm No 7-left posterior leg -Time 10:00 -Correct Patient Yes -Correct Side, Site, Position Yes -Correct Procedure Yes -Procedure Performed Yes No -Type of Procedure Debridement -Clinical Debridement Subcutaneous -Tissue Removed Subcutaneous -Post Debridement (cm) - Length 2.5 -Post Debridement (cm) - Width 2.0 -Post Debridement (cm) - Depth 0.1 -Total Square (Post) (cm) 5.00 -Area of Debridement (cm) - Length 2.5 -Area of Debridement (cm) - Width 2.0 -Total Square (Area) (cm) 5.00 -Tunneling No -Undermining/Tunneling No -Circular Undermining No -Wound/Ulcer Outcome Not Healed Healed- Epithelialized -Ulcer Cleansing Rinsed/ Irrigated with Saline -Foul Odor after Cleansing No -Bioengineered Tissue No -Bleeding Controlled with Pressure -Treatment Response Procedure Tolerated Well -Debridement - Subq, 1st 20sq cm No 6-left heel -Time 10:00 09:55 -Correct Patient Yes Yes -Correct Side, Site, Position Yes Yes -Correct Procedure Yes Yes -Procedure Performed Yes Yes -Type of Procedure Debridement Debridement -Clinical Debridement Subcutaneous Subcutaneous -Tissue Removed Subcutaneous Subcutaneous -Post Debridement (cm) - Length 2.8 1.4 -Post Debridement (cm) - Width 4.5 4.5 -Post Debridement (cm) - Depth 0.1 0.1 -Total Square (Post) (cm) 12.60 6.30 -Area of Debridement (cm) - Length 2.8 1.4 -Area of Debridement (cm) - Width 4.5 4.5 -Total Square (Area) (cm) 12.60 6.30 -Tunneling No No -Undermining/Tunneling No No -Circular Undermining No No -Wound/Ulcer Outcome Not Healed Not Healed -Ulcer Cleansing Rinsed/ Rinsed/ Irrigated with Irrigated with Saline Saline -Foul Odor after Cleansing No No -Bioengineered Tissue No No -Bleeding Controlled with Pressure Pressure -Treatment Response Procedure Procedure Tolerated Well Tolerated Well -Debridement - Subq, 1st 20sq cm Yes Yes Pain Scale: 0-10 Numeric Is Patient Pain Free? Yes Yes - Nurse 3 - General Ulcer D/C NN Start: 07/06/21 09:36 Freq: Status: Active Protocol: Activity Type Activity Date Activity User E-Sign Co-Sign Detail Recorded Client Recorded Date Recorded By Document 07/13/21 10:18 ML [id number] 07/13/21 10:19 ML Document 07/20/21 10:40 KR [id number] 07/20/21 10:42 KR 07/13/21 07/20/21 10:18 10:40 Wound Care Nurse 3 #9 Right Lower Extremity -Ulcer Cleansing Rinsed/ Irrigated with Saline -Primary Dressing Applied Aquacel AG 4x4, Promogran Samantha Matter -Primary Dressing Covered/Secured with Dry Gauze, Secured with Tape -Aquacel AG 4x4 1 -Promogran Samantha Matter 1 6-left heel -Ulcer Cleansing Rinsed/ Irrigated with Saline -Primary Dressing Applied Aquacel AG 4x4, Aquacel AG 4x4, Promogran Promogran Samantha Matter Samantha Matter -Primary Dressing Covered/Secured with Dry Gauze & Dry Gauze, Roll Gauze, Secured with Secured with Tape Tape -Aquacel AG 4x4 1 1 -Promogran Samantha Matter 1 1 Right -Multi-Layered Wrap Application Multi-Layer Comp - Right ($ ) Left -Compression Wrap Daniel Wrap -Tubular Bandage Double Layer Double Layer -Size of Tubigrip Used Size E Size E -Size E ($) 2 2 Pain Scale: 0-10 Numeric Is Patient Pain Free? Yes Yes WC - Visit Discharge Discharge Condition Stable Ambulatory Status Ambulatory Transportation Private Auto Additional Wound Wound debrided: Right lower extremity Laterality: Right Wound Grade/Stage: Glasgow stage I Type of Debridement: Excisional debridement Anesthesia Used: 4% Lidocaine Solution Depth: Down to and including healthy tissue Percentage of wound debrided: 100 Instrument Used: - (4 x 4 gauze) Tissue Removed: Nonviable skin slough and blister fluid Severity: Limited To Skin Breakdown Amount of bleeding with debridement: Mild Bleeding Controlled with: Compression and gauze Patient tolerated procedure: Patient tolerated procedure well Assessment/Plan Assessment/Plan (1) Pressure ulcer of left heel, stage 2: CODE(S): L89.622 - Pressure ulcer of left heel, stage 2 (2) Chronic kidney disease (CKD) stage G3a/A2, moderately decreased glomerular filtration rate (GFR) between 45-59 mL/min/1.73 square meter and albuminuria creatinine ratio between 30-299 mg/g: CODE(S): N18.31 - Chronic kidney disease, stage 3a (3) Type II diabetes mellitus: CODE(S): E11.9 - Type 2 diabetes mellitus without complications QUALIFIERS: Diabetes mellitus long term care phlebotomist insulin use: unspecified senior living insulin use status Diabetes mellitus complication status: with ne urologic complications Diabetes mellitus complication detail: with polyneuropathy Qualified Code(s): E11.42 - Type 2 diabetes mellitus with diabetic polyneuropathy (4) Pain in left foot: CODE(S): M79.672 - Pain in left foot PLAN: This is a 60-year-old female presenting to the wound care center today with new pressure ulcer of the left heel. Patient has history of left heel ulceration with osteomyelitis back in 2019. She underwent extensive course of IV antibiotics and followed up in the wound care center with Dr. Brown who was able to get the patient to heal with advanced wound care products and weekly wound care visits. Following replacement of her hip in January 2021 she subsequently reopened her left plantar heel wound secondary to placing more pressure at this limb site during her physical therapy and recovery process. Her has been helping her change the dressings to the left lower extremity/heel daily. Palpable pedal pulses on examination today. I do not believe this is inhibiting her wound healing status. I believe her left heel wound is secondary to pressure. Ulceration to the left plantar heel measures 3.0 cm x 3.5 cm x 0.1 cm. Ulceration site demonstrates a pink wound base with scant mixed fibrotic tissue throughout the wound bed. There is evidence of new skin formation and parts of the wound bed. Ulceration site demonstrates no localized signs of infection. Wound margins demonstrate scant yellow crusting and hyperkeratosis. Ulceration site was sharply debrided with a #15 blade removing scant yellow crusting, hyperkeratosis, fibrous, devitalized subcutaneous, biofilm, slough. This was tolerated well. She has multiple blister formations to the left and right lower extremity secondary to edema. These were deroofed and drained to prevent refilling and further wound breakdown. The sites were dressed with Adaptic. Right lower extremity dressed with a 3M compression wrap. Left leg dressed with double Tubigrip stocking and an Daniel wrap. I discussed further controlling of her edema by elevation of her legs and compliance with her compression dressings. Ulceration site left heel dressed with Samantha, Aquacel Ag and dry sterile dressing. Daniel wrap applied to the left lower extremity to aid in control of edema. Dressings to be changed daily. She has completed her rehabilitation through physical therapy. She is to continue to offload the left heel. Visiting nursing is coming to assist with her dressing changes daily. Recommend continued visiting nursing. I discussed with her localized signs of infection. She is to observe for any erythema or redness moving up the leg, malodor to the ulceration site, purulent drainage from the ulceration site, increased pain to the left heel, or if she experiences any nausea, vomiting, fever, chills or other constitutional symptoms that these are signs of a progressing infection and she needs to report to the ED. She voices understanding of this. I reviewed and discussed his case today. Debridement was performed today as noted in the clinical panel to all of the ulcer sites. The following work up and care recommendations were made: Dressing: Samantha and Aquacel Ag-left heel; Adaptic to blister sites, left leg double Tubigrip with an Daniel wrap; right lower extremity 3M compression wrap Wash: Soap and water to left heel Tissue growth optimization: Samantha Offload: Offloading surgical shoe with heel cut out Vascular: Palpable pedal pulses Edema: Elevation of lower extremities and an double Tubigrip and Daniel wrap left lower extremity. 3M compression dressing right lower extremity Infection: No localized signs of infection Pain: Patient may take [id number] Tylenol extra strength for pain control Host factors: Diabetes mellitus type 2, history of osteomyelitis left heel I answered all the patient's questions. To return to the wound healing center in 1 week or call sooner if the patient has any questions or concerns. Note: Focus speech recognition patient registrar software was used to create portions of this document. Sound-alike and misspelled words, as well as other patient registrar errors may be contained in the documentation.
[2021-07-27 09:40] VITALS: BP 174/60; PULSE 78; TEMP 36.1
--- NOTE | 2021-07-27 10:09 | PN.PCM_ITS ---
History of Present Illness Date of Service: 07/27/21 Chief Complaint: left heel ulcer left ankle ulcer- healed History of Wound: In October 2019, patient had rubbing in shoes while shopping which led to a blister that developed into an ulceration. Patient was then seen by Dewey Amezquita.P.M. for wound care. Patient then became infected and was admitted to the hospital. Patient was noted to have OM on MRI. Patient wanted to avoid surgery so a exterminator helper termite course of appropriate IV antibiotics was the treatment chosen. Patient was also noted to have hyperglycemia and has worked with hospitalist and PCP to try to get better control. Blood sugar levels remain elevated. Patient also had LEAS obtained in the hospital which suggested patient had the proper blood flow to allow healing. Patient has since finished exterminator helper termite course of antibiotics. Patient has since been seen on a weekly basis in office with progression and regression of wound noted over the weeks. Patient has tried various dressing options including wet to dry and santyl. The most progress was noted with Santyl but patient ran out and was unable to refill due to insurance issues. During which time the wound regressed. She also has an offloading surgical shoe and offloading boot to relieve pressure. Patient care is henceforth being carried out at the wound care center. Patient not currently on any antibiotics. Patient has since began skin graft aplications significant improvement is been noted to her foot overall. Patient has finished epifix graft applications with some very small remaining wound noted to left heel. Patient has new wounds noted to bilateral third digits. The right 3rd digit wound has healed. Her left ankle ulcer remains healed Patient relates that ambulation is getting easier and she is rebuilding her strength slowly. She has not had any worsening of minor remaining heel wound since beginning ambulation again. 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 Her has been helping her change the dressings daily to the left heel. She presents to the wound care center today for continued care of her left heel ulceration. Subjective Subjective This is a 60-year-old female who presents to the wound care center for follow-up of her left heel ulceration. She states that visiting nursing has been coming for her dressing changes, but states that this is only once a week and would like them to come at least twice a week. She is remaining compliant in her offloading status to the left heel. She denies any constitutional symptoms today. She has no other complaints today. Objective Data Objective Data Vital Signs: Vital Signs Temp Pulse Resp BP 97.0 F L 78 18 174/60 H 07/27/21 09:40 07/27/21 09:40 06/30/21 00:10 07/27/21 09:40 Physical Exam Const alert, oriented x3 and no apparent distress General Appearance: cooperative and comfortable HEENT normocephalic Eyes General Eye: normal appearance of both eyes Neck General: normal visual inspection Lymph Lymphatic: no lymphadenopathy noted and no lymphedema noted Resp normal respiratory effort Cardio regular rate and regular rhythm Extremity normal capillary refill and no calf tenderness General Extremity: edema bilateral lower extremity Skin no rashes or lesions noted and skin turgor normal Wound Narrative: Right posterior leg abrasion with no localized signs of infection. Right anterior and anterior medial ulceration secondary to blister formation. Blisters had been deroofed with skin removed and demonstrate no localized signs of infection. Left lower extremity heel decubitus ulceration. Ulcerative site demonstrates pink wound base with scant fibrotic tissue throughout the wound bed, with serosanguineous drainage, and no localized signs of infection. No palpable fluctuance noted to the left heel. Ulcerative site does have a scant yellow crusting covering the wound bed and dried hyperkeratotic tissue about the wound margins. Ulcerative site demonstrates closure centrally with new skin island. Left lower extremity anterior ankle wound, secondary to bandaging, has healed. Neuro oriented x3 and moves all extremities Motor Exam: strength 5/5 throughout Debridement Note Debridement Note Wound debrided: Left plantar heel decubitus ulcer Laterality: Left Wound Grade/Stage: Glasgow stage II Type of Debridement: Excisional debridement Anesthesia Used: 4% Lidocaine Solution Depth: Down to and including healthy tissue and in the subcutaneous layer Percentage of wound debrided: 100 Instrument Used: 3mm curette Tissue Removed: Fibrous, devitalized subcutaneous, biofilm, slough Severity: Fat Layer Exposed Amount of bleeding with debridement: Mild Bleeding Controlled with: Compression and gauze Patient tolerated procedure: Patient tolerated procedure well Post-Debridement Measurements and Additional Note: Post-Debridement Camelia urements/Treatment WC - Nurse 1 - General Ulcer Assessment Start: 07/06/21 09:36 Freq: Status: Active Protocol: WC.LOWEXT Activity Type Activity Date Activity User E-Sign Co-Sign Detail Recorded Client Recorded Date Recorded By Document 07/06/21 09:36 KR [id number] 07/06/21 09:45 KR Document 07/13/21 09:52 AK [id number] 07/13/21 09:57 AK Document 07/20/21 09:44 KR [id number] 07/20/21 09:54 KR Document 07/27/21 09:40 JF [id number] 07/27/21 09:52 JF 07/06/21 07/13/21 07/20/21 09:36 09:52 09:44 WC - Today's Visit Information Type of service Follow-up Visit Follow-up Visit Follow-up Visit (Physician/MAKEUP SALES CONSULTANT (Physician/MAKEUP SALES CONSULTANT (Physician/MAKEUP SALES CONSULTANT ) ) ) Arrival Mode Ambulatory Ambulatory, Ambulatory, Walker Walker Patient Identification Verified (Name & Yes Yes Yes ) Patient Requires Transmission-Based No Precautions Safety Precautions NA Vital Signs Temperature (97.8 F-99.1 F) 97.5 F L 95.6 F L 98.0 F Temperature Source Temporal Temporal Temporal Pulse Rate (60-100) 73 69 82 Pulse Location Monitor Monitor Monitor Blood Pressure (90/60-120/80) 178/86 H 151/73 H 149/57 H Blood Pressure Mean (mm Hg) 116 99 87 Source Monitor Monitor Monitor Position Semi-Fowlers Semi-Fowlers Blood Pressure Location Right Arm Right Arm History Since Last Visit- (Skip if this is Patient's initial visit) Have you changed medications since your No No No last visit? Any new allergies or adverse reactions No No No Had a fall/change in ADL's that may No No No increase risk of falls Signs or symptoms of abuse and/or No No No neglect since last visit Have you been in the hospital since your No No No last visit? Has dressing in place as prescribed Yes Yes Yes Has compression in place as prescribed Yes Yes Yes Has offloadiing in place as prescribed N/A N/A N/A Experienced any changes in pain level or No No No management Left Footwear Slipper Regular Shoe Regular Shoe Right Footwear Slipper Regular Shoe Regular Shoe Pain Scale: 0-10 Numeric Is Patient Pain Free? Yes No Yes 07/27/21 09:40 WC - Today's Visit Information Type of service Follow-up Visit (Physician/MAKEUP SALES CONSULTANT ) Arrival Mode Walker Patient Identification Verified (Name & Yes ) Patient Requires Transmission-Based Precautions Safety Precautions Vital Signs Temperature (97.8 F-99.1 F) 97.0 F L Temperature Source Temporal Pulse Rate (60-100) 78 Pulse Location Monitor Blood Pressure (90/60-120/80) 174/60 H Blood Pressure Mean (mm Hg) 98 Source Monitor Position Semi-Fowlers Blood Pressure Location Left Arm History Since Last Visit- (Skip if this is Patient's initial visit) Have you changed medications since your No last visit? Any new allergies or adverse reactions No Had a fall/change in ADL's that may No increase risk of falls Signs or symptoms of abuse and/or No neglect since last visit Have you been in the hospital since your last visit? Has dressing in place as prescribed Yes Has compression in place as prescribed Yes Has offloadiing in place as prescribed N/A Experienced any changes in pain level or No management Left Footwear Regular Shoe Right Footwear Regular Shoe Pain Scale: 0-10 Numeric Is Patient Pain Free? Yes - Nurse 1 - General Ulcer Measurement Start: 07/06/21 09:36 Freq: Status: Active Protocol: Activity Type Activity Date Activity User E-Sign Co-Sign Detail Recorded Client Recorded Date Recorded By Document 07/06/21 09:36 KR [id number] 07/06/21 09:45 KR Document 07/13/21 09:52 AK [id number] 07/13/21 09:57 AK Document 07/20/21 09:44 KR [id number] 07/20/21 09:54 KR Document 07/27/21 09:40 JF [id number] 07/27/21 09:52 JF 07/06/21 07/13/21 07/20/21 09:36 09:52 09:44 Wound Center Nurse 1 #11 Left 3rd toe -Current Size (cm) - Length -Current Size (cm) - Width -Current Size (cm) - Depth -Total Square Cm -Exudate Amt -Exudate Type -Wound Margin -Granulation Amt -Granulation Quality -Necrosis Amt -Texture (Bren-wound Skin Appearance) -Moisture (Bren-wound Skin Appearance) -Color (Bren-wound Skin Appearance) -Temperature (Bren-wound Skin Appearance) -Tenderness on Palpation (Bren-wound Skin Appearance) -Ulcer Cleansing -Foul Odor after Cleansing -Anesthetic Used #10 Left Lower rick -Current Size (cm) - Length 7.5 -Current Size (cm) - Width 2.7 -Current Size (cm) - Depth 0.1 -Total Square Cm 20.25 -Exudate Amt Small -Exudate Type Serosanguineous -Wound Margin Distinct, Outline Attached -Granulation Amt Small (1-33%) -Granulation Quality Red -Necrosis Amt Medium (34-66%) -Necrotic Tissue Type Adherent Slough -Texture (Bren-wound Skin Appearance) Assessed, Scarring -Moisture (Bren-wound Skin Appearance) No Abnormality, Assessed -Color (Bren-wound Skin Appearance) No Abnormality, Assessed -Temperature (Bren-wound Skin No Abnormality Appearance) (Pt Warm) -Tenderness on Palpation (Bren-wound No Skin Appearance) -Ulcer Cleansing Rinsed/ Irrigated with Saline -Foul Odor after Cleansing No -Anesthetic Used 4% Lidocaine Solution,5% Lidocaine Gel #9 Right Lower Extremity -Current Size (cm) - Length 12 -Current Size (cm) - Width 20 -Current Size (cm) - Depth 0.1 -Total Square Cm 240 -Exudate Amt Small -Exudate Type Serosanguineous -Wound Margin Distinct, Outline Attached -Granulation Amt None Present (0 %) -Granulation Quality -Necrosis Amt None Present (0 %) -Texture (Bren-wound Skin Appearance) Assessed, Scarring -Moisture (Bren-wound Skin Appearance) No Abnormality, Assessed -Color (Bren-wound Skin Appearance) No Abnormality, Assessed -Temperature (Bren-wound Skin No Abnormality Appearance) (Pt Warm) -Tenderness on Palpation (Bren-wound No Skin Appearance) -Ulcer Cleansing Rinsed/ Irrigated with Saline -Foul Odor after Cleansing No -Anesthetic Used 5% Lidocaine Gel 8-right posterior leg -Combined with other wound No -Current Size (cm) - Length 2 -Current Size (cm) - Width 2.3 -Current Size (cm) - Depth 0.1 -Total Square Cm 4.6 -Photo Taken No -Tunneling No -Undermining/Tunneling No -Circular Undermining No -Change in Wound Grade/Stage No -Exudate Amt Medium -Exudate Type Serosanguineous -Wound Margin Distinct, Outline Attached -Granulation Amt Medium (34-66%) -Granulation Quality Red N/A -Slough/Fibrin No -Necrosis Amt Medium (34-66%) None Present (0 %) -Necrotic Tissue Type Adherent Slough -Structure Exposed N/A -Texture (Bren-wound Skin Appearance) Assessed, No Abnormality, Scarring Assessed -Moisture (Bren-wound Skin Appearance) Assessed,Dry/ No Abnormality, Scaly Assessed -Color (Bren-wound Skin Appearance) No Abnormality, No Abnormality, Assessed Assessed -Temperature (Bren-wound Skin No Abnormality No Abnormality Appearance) (Pt Warm) (Pt Warm) -Tenderness on Palpation (Bren-wound No No Skin Appearance) -Ulcer Cleansing Rinsed/ Rinsed/ Irrigated with Irrigated with Saline Saline -Foul Odor after Cleansing No No -Anesthetic Used 5% Lidocaine 4% Lidocaine Gel Solution 7-left posterior leg -Combined with other wound No -Current Size (cm) - Length 2.5 -Current Size (cm) - Width 2 -Current Size (cm) - Depth 0.1 -Total Square Cm 5.0 -Photo Taken No -Tunneling No -Undermining/Tunneling No -Circular Undermining No -Change in Wound Grade/Stage No -Exudate Amt None Present -Wound Margin Distinct, Outline Attached -Granulation Amt Medium (34-66%) None Present (0 %) -Granulation Quality Red N/A -Slough/Fibrin No -Necrosis Amt Medium (34-66%) None Present (0 %) -Necrotic Tissue Type Adherent Slough -Structure Exposed N/A -Texture (Bren-wound Skin Appearance) Assessed, No Abnormality, Scarring Assessed -Moisture (Bren-wound Skin Appearance) Assessed, No Abnormality, Maceration,Dry/ Assessed Scaly -Color (Bren-wound Skin Appearance) No Abnormality, No Abnormality, Assessed Assessed -Temperature (Bren-wound Skin No Abnormality No Abnormality Appearance) (Pt Warm) (Pt Warm) -Tenderness on Palpation (Bren-wound No No Skin Appearance) -Ulcer Cleansing Rinsed/ Rinsed/ Irrigated with Irrigated with Saline Saline -Foul Odor after Cleansing No No -Anesthetic Used 5% Lidocaine Gel 6-left heel -Combined with other wound No -Current Size (cm) - Length 2.8 1.4 3 -Current Size (cm) - Width 4.5 4.5 3.5 -Current Size (cm) - Depth 0.1 0.1 0.1 -Total Square Cm 12.60 6.30 10.5 -Photo Taken No -Tunneling No -Undermining/Tunneling No -Circular Undermining No -Change in Wound Grade/Stage No -Exudate Amt Medium Medium Small -Exudate Type Serosanguineous Serosanguineous Serosanguineous -Wound Margin Distinct, Distinct, Distinct, Outline Outline Outline Attached Attached Attached -Granulation Amt Medium (34-66%) Large (67-100%) Medium (34-66%) -Granulation Quality Red Pale,[place] Red -Slough/Fibrin Yes -Necrosis Amt Medium (34-66%) Small (1-33%) Medium (34-66%) -Necrotic Tissue Type Adherent Slough Adherent Slough Adherent Slough -Structure Exposed N/A -Texture (Bren-wound Skin Appearance) Assessed, Assessed,Callus Assessed, Scarring Scarring -Moisture (Bren-wound Skin Appearance) Assessed, No Abnormality, Assessed,Dry/ Maceration,Dry/ Assessed Scaly Scaly -Color (Bren-wound Skin Appearance) No Abnormality, No Abnormality, Assessed Assessed -Temperature (Bren-wound Skin No Abnormality No Abnormality No Abnormality Appearance) (Pt Warm) (Pt Warm) (Pt Warm) -Tenderness on Palpation (Bren-wound No No No Skin Appearance) -Ulcer Cleansing Rinsed/ Rinsed/ Rinsed/ Irrigated with Irrigated with Irrigated with Saline Saline Saline -Foul Odor after Cleansing No No No -Anesthetic Used 5% Lidocaine 4% Lidocaine 5% Lidocaine Gel Solution Gel Right Calf (cm) 47 40.5 Right Ankle (cm) 28 27 Left Calf (cm) 46 45 Left Ankle (cm) 28 25 07/27/21 09:40 Wound Center Nurse 1 #11 Left 3rd toe -Current Size (cm) - Length 0.9 -Current Size (cm) - Width 1.7 -Current Size (cm) - Depth 0.1 -Total Square Cm 1.53 -Exudate Amt Small -Exudate Type Serosanguineous -Wound Margin Distinct, Outline Attached -Granulation Amt Small (1-33%) -Granulation Quality [place] -Necrosis Amt None Present (0 %) -Texture (Bren-wound Skin Appearance) Assessed, Scarring -Moisture (Bren-wound Skin Appearance) No Abnormality, Assessed -Color (Bren-wound Skin Appearance) No Abnormality, Assessed -Temperature (Bren-wound Skin No Abnormality Appearance) (Pt Warm) -Tenderness on Palpation (Bren-wound No Skin Appearance) -Ulcer Cleansing Rinsed/ Irrigated with Saline -Foul Odor after Cleansing No -Anesthetic Used 4% Lidocaine Solution #10 Left Lower rick -Current Size (cm) - Length 1.1 -Current Size (cm) - Width 0.7 -Current Size (cm) - Depth 0.1 -Total Square Cm 0.77 -Exudate Amt Small -Exudate Type Serosanguineous -Wound Margin Distinct, Outline Attached -Granulation Amt Large (67-100%) -Granulation Quality Red -Necrosis Amt None Present (0 %) -Necrotic Tissue Type -Texture (Bren-wound Skin Appearance) Assessed, Scarring -Moisture (Bren-wound Skin Appearance) No Abnormality, Assessed -Color (Bren-wound Skin Appearance) No Abnormality, Assessed -Temperature (Bren-wound Skin Appearance) -Tenderness on Palpation (Bren-wound Skin Appearance) -Ulcer Cleansing Soap and Water -Foul Odor after Cleansing No -Anesthetic Used 4% Lidocaine Solution #9 Right Lower Extremity -Current Size (cm) - Length 2.4 -Current Size (cm) - Width 11 -Current Size (cm) - Depth 0.1 -Total Square Cm 26.4 -Exudate Amt Medium -Exudate Type Serosanguineous -Wound Margin Distinct, Outline Attached -Granulation Amt Large (67-100%) -Granulation Quality Red -Necrosis Amt None Present (0 %) -Texture (Bren-wound Skin Appearance) Assessed, Scarring -Moisture (Bren-wound Skin Appearance) No Abnormality, Assessed -Color (Bren-wound Skin Appearance) No Abnormality, Assessed -Temperature (Bren-wound Skin No Abnormality Appearance) (Pt Warm) -Tenderness on Palpation (Bren-wound No Skin Appearance) -Ulcer Cleansing Soap and Water -Foul Odor after Cleansing No -Anesthetic Used 4% Lidocaine Solution 8-right posterior leg -Combined with other wound -Current Size (cm) - Length -Current Size (cm) - Width -Current Size (cm) - Depth -Total Square Cm -Photo Taken -Tunneling -Undermining/Tunneling -Circular Undermining -Change in Wound Grade/Stage -Exudate Amt -Exudate Type -Wound Margin -Granulation Amt -Granulation Quality -Slough/Fibrin -Necrosis Amt -Necrotic Tissue Type -Structure Exposed -Texture (Bren-wound Skin Appearance) -Moisture (Bren-wound Skin Appearance) -Color (Bren-wound Skin Appearance) -Temperature (Bren-wound Skin Appearance) -Tenderness on Palpation (Bren-wound Skin Appearance) -Ulcer Cleansing -Foul Odor after Cleansing -Anesthetic Used 7-left posterior leg -Combined with other wound -Current Size (cm) - Length -Current Size (cm) - Width -Current Size (cm) - Depth -Total Square Cm -Photo Taken -Tunneling -Undermining/Tunneling -Circular Undermining -Change in Wound Grade/Stage -Exudate Amt -Wound Margin -Granulation Amt -Granulation Quality -Slough/Fibrin -Necrosis Amt -Necrotic Tissue Type -Structure Exposed -Texture (Bren-wound Skin Appearance) -Moisture (Bren-wound Skin Appearance) -Color (Bren-wound Skin Appearance) -Temperature (Bren-wound Skin Appearance) -Tenderness on Palpation (Bren-wound Skin Appearance) -Ulcer Cleansing -Foul Odor after Cleansing -Anesthetic Used 6-left heel -Combined with other wound -Current Size (cm) - Length 3.3 -Current Size (cm) - Width 3.9 -Current Size (cm) - Depth 0.1 -Total Square Cm 12.87 -Photo Taken -Tunneling -Undermining/Tunneling -Circular Undermining -Change in Wound Grade/Stage -Exudate Amt Large -Exudate Type Yellow/Green -Wound Margin Distinct, Outline Attached -Granulation Amt Small (1-33%) -Granulation Quality -Slough/Fibrin -Necrosis Amt Large (67-100%) -Necrotic Tissue Type Adherent Slough -Structure Exposed -Texture (Bren-wound Skin Appearance) Assessed, Scarring -Moisture (Bren-wound Skin Appearance) No Abnormality, Assessed -Color (Bren-wound Skin Appearance) No Abnormality, Assessed -Temperature (Bren-wound Skin No Abnormality Appearance) (Pt Warm) -Tenderness on Palpation (Bren-wound No Skin Appearance) -Ulcer Cleansing Soap and Water -Foul Odor after Cleansing No -Anesthetic Used 4% Lidocaine Solution Right Calf (cm) 41.5 Right Ankle (cm) 26.3 Left Calf (cm) 43.3 Left Ankle (cm) 26.2 WC - Nurse 2 - General Ulcer CM Notes Start: 07/06/21 09:36 Freq: Status: Active Protocol: Activity Type Activity Date Activity User E-Sign Co-Sign Detail Recorded Client Recorded Date Recorded By Document 07/06/21 10:16 PL Desktop 07/06/21 10:19 PL Document 07/13/21 12:39 PL [id number] 07/13/21 12:41 PL Document 07/20/21 13:16 PL [id number] 07/20/21 13:20 PL 07/06/21 07/13/21 07/20/21 10:16 12:39 13:16 Wound Center Nurse 2 #10 Left Lower rick -Time 10:17 -Correct Patient Yes -Correct Side, Site, Position Yes -Correct Procedure Yes -Procedure Performed Yes -Type of Procedure Debridement -Clinical Debridement Epidermis / Dermis -Tissue Removed Epidermis, Dermis -Post Debridement (cm) - Length 7.5 -Post Debridement (cm) - Width 2.7 -Post Debridement (cm) - Depth 0.1 -Total Square (Post) (cm) 20.25 -Area of Debridement (cm) - Length 7.5 -Area of Debridement (cm) - Width 2.7 -Total Square (Area) (cm) 20.25 -Tunneling No -Undermining/Tunneling No -Circular Undermining No -Wound/Ulcer Outcome Not Healed -Ulcer Cleansing Rinsed/ Irrigated with Saline -Foul Odor after Cleansing No -Bioengineered Tissue No -Bleeding Controlled with Pressure -Treatment Response Procedure Tolerated Well -Debridement - Open, 1st 20sq cm No -Debridement, Open, ea addt'l 20sq cm 1 or part thereof #9 Right Lower Extremity -Time 10:17 -Correct Patient Yes -Correct Side, Site, Position Yes -Correct Procedure Yes -Procedure Performed Yes -Type of Procedure Debridement -Clinical Debridement Epidermis / Dermis -Tissue Removed Epidermis, Dermis -Post Debridement (cm) - Length 12 -Post Debridement (cm) - Width 20 -Post Debridement (cm) - Depth 0.1 -Total Square (Post) (cm) 240 -Area of Debridement (cm) - Length 12 -Area of Debridement (cm) - Width 20 -Total Square (Area) (cm) 240 -Tunneling No -Undermining/Tunneling No -Circular Undermining No -Wound/Ulcer Outcome Not Healed -Ulcer Cleansing Rinsed/ Irrigated with Saline -Foul Odor after Cleansing No -Bioengineered Tissue No -Bleeding Controlled with Pressure -Treatment Response Procedure Tolerated Well -Debridement - Open, 1st 20sq cm Yes -Debridement, Open, ea addt'l 20sq cm 11 or part thereof 8-right posterior leg -Time 10:00 -Correct Patient Yes -Correct Side, Site, Position Yes -Correct Procedure Yes -Procedure Performed Yes No -Type of Procedure Debridement -Clinical Debridement Subcutaneous -Tissue Removed Subcutaneous -Post Debridement (cm) - Length 2.0 -Post Debridement (cm) - Width 2.3 -Post Debridement (cm) - Depth 0.1 -Total Square (Post) (cm) 4.60 -Area of Debridement (cm) - Length 2.0 -Area of Debridement (cm) - Width 2.3 -Total Square (Area) (cm) 4.60 -Tunneling No -Undermining/Tunneling No -Circular Undermining No -Wound/Ulcer Outcome Not Healed Healed- Epithelialized -Ulcer Cleansing Rinsed/ Irrigated with Saline -Foul Odor after Cleansing No -Bioengineered Tissue No -Bleeding Controlled with Pressure -Treatment Response Procedure Tolerated Well -Debridement - Subq, 1st 20sq cm No 7-left posterior leg -Time 10:00 -Correct Patient Yes -Correct Side, Site, Position Yes -Correct Procedure Yes -Procedure Performed Yes No -Type of Procedure Debridement -Clinical Debridement Subcutaneous -Tissue Removed Subcutaneous -Post Debridement (cm) - Length 2.5 -Post Debridement (cm) - Width 2.0 -Post Debridement (cm) - Depth 0.1 -Total Square (Post) (cm) 5.00 -Area of Debridement (cm) - Length 2.5 -Area of Debridement (cm) - Width 2.0 -Total Square (Area) (cm) 5.00 -Tunneling No -Undermining/Tunneling No -Circular Undermining No -Wound/Ulcer Outcome Not Healed Healed- Epithelialized -Ulcer Cleansing Rinsed/ Irrigated with Saline -Foul Odor after Cleansing No -Bioengineered Tissue No -Bleeding Controlled with Pressure -Treatment Response Procedure Tolerated Well -Debridement - Subq, 1st 20sq cm No 6-left heel -Time 10:00 09:55 10:17 -Correct Patient Yes Yes Yes -Correct Side, Site, Position Yes Yes Yes -Correct Procedure Yes Yes Yes -Procedure Performed Yes Yes Yes -Type of Procedure Debridement Debridement Debridement -Clinical Debridement Subcutaneous Subcutaneous Subcutaneous -Tissue Removed Subcutaneous Subcutaneous Subcutaneous -Post Debridement (cm) - Length 2.8 1.4 3.0 -Post Debridement (cm) - Width 4.5 4.5 3.5 -Post Debridement (cm) - Depth 0.1 0.1 0.1 -Total Square (Post) (cm) 12.60 6.30 10.50 -Area of Debridement (cm) - Length 2.8 1.4 3.0 -Area of Debridement (cm) - Width 4.5 4.5 3.5 -Total Square (Area) (cm) 12.60 6.30 10.50 -Tunneling No No No -Undermining/Tunneling No No No -Circular Undermining No No No -Wound/Ulcer Outcome Not Healed Not Healed Not Healed -Ulcer Cleansing Rinsed/ Rinsed/ Irrigated with Irrigated with Saline Saline -Foul Odor after Cleansing No No -Bioengineered Tissue No No No -Bleeding Controlled with Pressure Pressure Pressure -Treatment Response Procedure Procedure Procedure Tolerated Well Tolerated Well Tolerated Well -Debridement - Subq, 1st 20sq cm Yes Yes Yes Pain Scale: 0-10 Numeric Is Patient Pain Free? Yes Yes Yes WC - Nurse 3 - General Ulcer D/C NN Start: 07/06/21 09:36 Freq: Status: Active Protocol: Activity Type Activity Date Activity User E-Sign Co-Sign Detail Recorded Client Recorded Date Recorded By Document 07/13/21 10:18 ML [id number] 07/13/21 10:19 ML Document 07/20/21 10:40 KR [id number] 07/20/21 10:42 KR 07/13/21 07/20/21 10:18 10:40 Wound Care Nurse 3 #9 Right Lower Extremity -Ulcer Cleansing Rinsed/ Irrigated with Saline -Primary Dressing Applied Aquacel AG 4x4, Promogran Samantha Matter -Primary Dressing Covered/Secured with Dry Gauze, Secured with Tape -Aquacel AG 4x4 1 -Promogran Samantha Matter 1 6-left heel -Ulcer Cleansing Rinsed/ Irrigated with Saline -Primary Dressing Applied Aquacel AG 4x4, Aquacel AG 4x4, Promogran Promogran Samantha Matter Samantha Matter -Primary Dressing Covered/Secured with Dry Gauze & Dry Gauze, Roll Gauze, Secured with Secured with Tape Tape -Aquacel AG 4x4 1 1 -Promogran Samantha Matter 1 1 Right -Multi-Layered Wrap Application Multi-Layer Comp - Right ($ ) Left -Compression Wrap Daniel Wrap -Tubular Bandage Double Layer Double Layer -Size of Tubigrip Used Size E Size E -Size E ($) 2 2 Pain Scale: 0-10 Numeric Is Patient Pain Free? Yes Yes WC - Visit Discharge Discharge Condition Stable Ambulatory Status Ambulatory Transportation Private Auto Additional Wound Wound debrided: Right lower extremity anterior and medial wound Laterality: Right Wound Grade/Stage: Glasgow stage I Type of Debridement: Excisional debridement Anesthesia Used: 4% Lidocaine Solution Depth: Down to and including healthy tissue and in the subcutaneous layer Percentage of wound debrided: 100 Instrument Used: 3mm curette Tissue Removed: Fibrous, devitalized subcutaneous, biofilm, slough Severity: Fat Layer Exposed Amount of bleeding with debridement: Mild Bleeding Controlled with: Compression and gauze Patient tolerated procedure: Patient tolerated procedure well Assessment/Plan Assessment/Plan (1) Pressure ulcer of left heel, stage 2: CODE(S): L89.622 - Pressure ulcer of left heel, stage 2 (2) Chronic kidney disease (CKD) stage G3a/A2, moderately decreased glomerular filtration rate (GFR) between 45-59 mL/min/1.73 square meter and albuminuria creatinine ratio between 30-299 mg/g: CODE(S): N18.31 - Chronic kidney disease, stage 3a (3) Type II diabetes mellitus: CODE(S): E11.9 - Type 2 diabetes mellitus without complications QUALIFIERS: Diabetes mellitus exterminator helper termite insulin use: unspecified retirement insulin use status Diabetes mellitus complication status: with neurologic complications Diabetes mellitus complication detail: with polyneuropathy Qualified Code(s): E11.42 - Type 2 diabetes mellitus with diabetic polyneuropathy (4) Pain in left foot: CODE(S): M79.672 - Pain in left foot PLAN: This is a 60-year-old female presenting to the wound care center today with new pressure ulcer of the left heel. Patient has history of left heel ulceration with osteomyelitis back in 2019. She underwent extensive course of IV antibiotics and followed up in the wound care center with Dr. Brown who was able to get the patient to heal with advanced wound care products and weekly wound care visits. Following replacement of her hip in January 2021 she subsequently reopened her left plantar heel wound secondary to placing more pressure at this limb site during her physical therapy and recovery process. Her has been helping her change the dressings to the left lower extremity/heel daily. Palpable pedal pulses on examination today. I do not believe this is inhibiting her wound healing status. I believe her left heel wound is secondary to pressure. Ulceration to the left plantar heel demonstrates a pink wound base with scant mixed fibrotic tissue throughout the wound bed with closure of the ulcerative site centrally with a new skin formation. Ulceration site demonstrates no localized signs of infection. Wound margins demonstrate scant yellow crusting and hyperkeratosis. Ulceration site was sharply debrided as stated in the clinical panel above. This was tolerated well. She has a new dorsal abrasion to her left foot third digit, this will be dressed with Samantha and dry sterile dressing. She has multiple wounds secondary to blister formations to the left and right lower extremity secondary to edema. The sites were dressed with Adaptic. Right lower extremity dressed with a 3M compression wrap. Left leg dressed with double Tubigrip stocking and an Daniel wrap. I discussed further controlling of her edema by elevation of her legs and compliance with her compression dressings. Ulceration site left heel dressed with Samantha, Aquacel Ag and dry sterile dressing. Daniel wrap applied to the left lower extremity to aid in control of edema. Dressings to be changed daily. She is to continue to offload the left heel. She continues to demonstrate progression in healing status. Visiting nursing is coming to assist with her dressing changes. Recommend continued visiting nursing twice a week. I discussed with her localized signs of infection. She is to observe for any erythema or redness moving up the leg, malodor to the ulceration site, purulent drainage from the ulceration site, increased pain to the left heel, or if she experiences any nausea, vomiting, fever, chills or other constitutional symptoms that these are signs of a progressing infection and she needs to report to the ED. She voices understanding of this. I reviewed and discussed his case today. Debridement was performed today as noted in the clinical panel to all of the ulcer sites. The following work up and care recommendations were made: Dressing: Samantha and Aquacel Ag-left heel; Adaptic to blister sites, left leg double Tubigrip with an Daniel wrap; right lower extremity 3M compression wrap Wash: Soap and water to left heel Tissue growth optimization: Samantha Offload: Offloading surgical shoe with heel cut out Vascular: Palpable pedal pulses Edema: Elevation of lower extremities and an double Tubigrip and Daniel wrap left lower extremity. 3M compression dressing right lower extremity Infection: No localized signs of infection Pain: Patient may take [id number] Tylenol extra strength for pain control Host factors: Diabetes mellitus type 2, history of osteomyelitis left heel I answered all the patient's questions. To return to the wound healing center in 1 week or call sooner if the patient has any questions or concerns. Note: [employer] speech recognition eviscerator software was used to create portions of this document. Sound-alike and misspelled words, as well as other eviscerator errors may be contained in the documentation.
== END 2021-07-29 23:59 | disposition home or self-care (01) ==
LOC: WC 09:45
PROVIDERS: PCP Family Medicine; Visit Provider Student in an Organized Health Care Education/Training Program
DX: L89.622 Pressure ulcer of left heel, stage 2 (principal); E11.42 Type 2 diabetes mellitus with diabetic polyneuropathy; E11.22 Type 2 diabetes mellitus with diabetic chronic kidney disease; N18.31 Chronic kidney disease, stage 3a; Z96.649 Presence of unspecified artificial hip joint; M79.672 Pain in left foot
CPT/HCPCS: 11042; 11045; 29581; 97597; 97598

== ENCOUNTER 2021-08-24 10:30 | Outpatient (RCR) | payer MEDICARE, MEDICAID, SELFPAY ==
[2021-07-30 00:14] VITALS: BP 174/60; PULSE 78; RESP 18; TEMP 36.1
[2021-08-03 10:13] VITALS: RESP 16; TEMP 36.2
--- NOTE | 2021-08-03 12:14 | PN.PCM_ITS ---
History of Present Illness Date of Service: 08/03/21 Chief Complaint: left heel ulcer left ankle ulcer- healed History of Wound: In October 2019, patient had rubbing in shoes while shopping which led to a blister that developed into an ulceration. Patient was then seen by Dewey Amezquita.P.M. for wound care. Patient then became infected and was admitted to the hospital. Patient was noted to have OM on MRI. Patient wanted to avoid surgery so a rat exterminator course of appropriate IV antibiotics was the treatment chosen. Patient was also noted to have hyperglycemia and has worked with hospitalist and PCP to try to get better control. Blood sugar levels remain elevated. Patient also had LEAS obtained in the hospital which suggested patient had the proper blood flow to allow healing. Patient has since finished rat exterminator course of antibiotics. Patient has since been seen on a weekly basis in office with progression and regression of wound noted over the weeks. Patient has tried various dressing options including wet to dry and santyl. The most progress was noted with Santyl but patient ran out and was unable to refill due to insurance issues. During which time the wound regressed. She also has an offloading surgical shoe and offloading boot to relieve pressure. Patient care is henceforth being carried out at the wound care center. Patient not currently on any antibiotics. Patient has since began skin graft aplications significant improvement is been noted to her foot overall. Patient has finished epifix graft applications with some very small remaining wound noted to left heel. Patient has new wounds noted to bilateral third digits. The right 3rd digit wound has healed. Her left ankle ulcer remains healed Patient relates that ambulation is getting easier and she is rebuilding her strength slowly. She has not had any worsening of minor remaining heel wound since beginning ambulation again. 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 Her has been helping her change the dressings daily to the left heel. She presents to the wound care center today for continued care of her left heel ulceration. Subjective Subjective 60-year-old female presents to the wound care center for a follow-up of her left heel ulceration. She states visiting nursing has been coming to change her dressings twice a week. She is remaining compliant in her offloading status to the left heel. She denies any constitutional symptoms today. She has no other complaints today. Objective Data Objective Data Vital Signs: Vital Signs Temp Pulse Resp BP 97.1 F L 78 16 174/60 H 08/03/21 10:13 07/30/21 00:14 08/03/21 10:13 07/30/21 00:14 Oxygen Delivery Method Room Air Physical Exam Const alert, oriented x3 and no apparent distress General Appearance: cooperative and comfortable HEENT normocephalic Eyes General Eye: normal appearance of both eyes Neck General: normal visual inspection Lymph Lymphatic: no lymphadenopathy noted and no lymphedema noted Chest inspection of chest normal and palpation of chest normal Resp normal respiratory effort Cardio regular rate and regular rhythm Extremity normal capillary refill and no calf tenderness General Extremity: edema bilateral Skin no rashes or lesions noted, skin turgor normal and no jaundice Wound Narrative: Right posterior leg abrasion, stable, no localized signs of infection. Right anterior and anterior medial ulceration secondary to blister formation. No signs of infection. Left lower extremity heel decubitus ulceration. Ulcerative site demonstrates pink wound base with scant fibrotic tissue throughout wound bed with serosanguineous drainage and no signs of infection. No palpable fluctuance noted to the left heel. Ulcerative site does have hyperkeratotic tissue about the wound margin. Ulcerative site demonstrates closure centrally with new skin island. Neuro oriented x3 and moves all extremities Motor Exam: strength 5/5 throughout Debridement Note Debridement Note Wound debrided: Left plantar heel decubitus ulcer Laterality: Left Wound Grade/Stage: Glasgow stage II Type of Debridement: Excisional debridement Anesthesia Used: 4% Lidocaine Solution Depth: Down to and including healthy tissue and in the subcutaneous layer Percentage of wound debrided: 100 Instrument Used: 3mm curette Tissue Removed: Fibrous, devitalized subcutaneous, biofilm, slough Severity: Fat Layer Exposed Amount of bleeding with debridement: Mild Bleeding Controlled with: Compression and gauze Patient tolerated procedure: Patient tolerated procedure well Post-Debridement Measurements and Additional Note: Post-Debridement Measurements/Treatment WC - Nurse 1 - General Ulcer Assessment Start: 08/03/21 10:13 Freq: Status: Active Protocol: MOOK Activity Type Activity Date Activity User E-Sign Co-Sign Detail Recorded Client Recorded Date Recorded By Document 08/03/21 10:13 [facility] [id number] 08/03/21 10:25 [facility] 08/03/21 10:13 - Today's Visit Information Type of service Follow-up Visit (Physician/MEDICAL CONCIERGE ) Arrival Mode Ambulatory, Walker Patient Identification Verified (Name & Yes ) Patient Requires Transmission-Based No Precautions Vital Signs Temperature (97.8 F-99.1 F) 97.1 F L Temperature Source Temporal Pulse Location Monitor Respiratory Rate (12-18) 16 Respiratory rate source Observation Oxygen Delivery Method Room Air Source Monitor Position Sitting Blood Pressure Location Left Arm History Since Last Visit- (Skip if this is Patient's initial visit) Have you changed medications since your No last visit? Any new allergies or adverse reactions No Had a fall/change in ADL's that may No increase risk of falls Signs or symptoms of abuse and/or No neglect since last visit Have you been in the hospital since your No last visit? Has dressing in place as prescribed Yes Has compression in place as prescribed Yes Has offloadiing in place as prescribed Yes Experienced any changes in pain level or No management Left Footwear Slipper Right Footwear Slipper Pain Scale: 0-10 Numeric Is Patient Pain Free? Yes - Nurse 1 - General Ulcer Measurement Start: 08/03/21 10:13 Freq: Status: Active Protocol: Activity Type Activity Date Activity User E-Sign Co-Sign Detail Recorded Client Recorded Date Recorded By Document 08/03/21 10:13 [facility] [id number] 08/03/21 10:25 [facility] 08/03/21 10:13 Wound Center Nurse 1 #11 Left 3rd toe -Combined with other wound No -Current Size (cm) - Length 0.2 -Current Size (cm) - Width 1.6 -Current Size (cm) - Depth 0.1 -Total Square Cm 0.32 -Photo Taken No -Epithelialization None Present -Tunneling No -Undermining/Tunneling No -Exudate Amt Small -Exudate Type Serosanguineous -Wound Margin Distinct, Outline Attached -Granulation Amt None Present (0 %) -Slough/Fibrin Yes -Necrosis Amt Large (67-100%) -Necrotic Tissue Type Adherent Slough -Texture (Bren-wound Skin Appearance) Assessed, Scarring -Moisture (Bren-wound Skin Appearance) Assessed,Dry/ Scaly -Color (Bren-wound Skin Appearance) Assessed, Erythema -Temperature (Bren-wound Skin No Abnormality Appearance) (Pt Warm) -Tenderness on Palpation (Bren-wound No Skin Appearance) -Ulcer Cleansing Soap and Water -Foul Odor after Cleansing No -Anesthetic Used 4% Lidocaine Solution #10 Left Lower rick -Combined with other wound No -Current Size (cm) - Length 1.2 -Current Size (cm) - Width 27 -Current Size (cm) - Depth 0.1 -Total Square Cm 32.4 -Photo Taken No -Epithelialization None Present -Tunneling No -Undermining/Tunneling No -Circular Undermining No -Exudate Amt None Present -Wound Margin Distinct, Outline Attached -Granulation Amt None Present (0 %) -Slough/Fibrin Yes -Necrosis Amt Large (67-100%) -Necrotic Tissue Type Adherent Slough -Texture (Bren-wound Skin Appearance) Assessed, Scarring -Moisture (Bren-wound Skin Appearance) Assessed -Color (Bren-wound Skin Appearance) Assessed -Temperature (Bren-wound Skin No Abnormality Appearance) (Pt Warm) -Tenderness on Palpation (Bren-wound No Skin Appearance) -Ulcer Cleansing Soap and Water -Foul Odor after Cleansing No -Anesthetic Used 4% Lidocaine Solution -Wound Comment(s) clustered scabs #9 Right Lower Extremity -Combined with other wound No -Current Size (cm) - Length 1.3 -Current Size (cm) - Width 4.3 -Current Size (cm) - Depth 0.1 -Total Square Cm 5.59 -Photo Taken No -Epithelialization Small 1-33% -Tunneling No -Undermining/Tunneling No -Circular Undermining No -Exudate Amt Small -Exudate Type Serosanguineous -Wound Margin Distinct, Outline Attached -Granulation Amt Large (67-100%) -Granulation Quality Red -Slough/Fibrin No -Necrosis Amt None Present (0 %) -Texture (Bren-wound Skin Appearance) Assessed, Scarring -Moisture (Bren-wound Skin Appearance) Assessed -Color (Bren-wound Skin Appearance) Assessed, Erythema -Temperature (Bren-wound Skin No Abnormality Appearance) (Pt Warm) -Tenderness on Palpation (Bren-wound No Skin Appearance) -Ulcer Cleansing Soap and Water -Foul Odor after Cleansing No -Anesthetic Used 4% Lidocaine Solution 6-left heel -Combined with other wound No -Current Size (cm) - Length 2.4 -Current Size (cm) - Width 3.9 -Current Size (cm) - Depth 0.2 -Total Square Cm 9.36 -Photo Taken No -Epithelialization None Present -Tunneling No -Undermining/Tunneling No -Circular Undermining No -Exudate Amt Medium -Exudate Type Serosanguineous -Wound Margin Distinct, Outline Attached -Granulation Amt Medium (34-66%) -Granulation Quality Red -Slough/Fibrin Yes -Necrosis Amt Medium (34-66%) -Necrotic Tissue Type Adherent Slough -Texture (Bren-wound Skin Appearance) Assessed, Scarring -Moisture (Bren-wound Skin Appearance) Assessed -Color (Bren-wound Skin Appearance) Assessed, Erythema -Temperature (Bren-wound Skin No Abnormality Appearance) (Pt Warm) -Tenderness on Palpation (Bren-wound No Skin Appearance) -Ulcer Cleansing Soap and Water -Foul Odor after Cleansing No -Anesthetic Used 4% Lidocaine Solution Lower Limb Edema Present Yes Right Calf (cm) 42.4 Right Ankle (cm) 28 Assessment/Plan Assessment/Plan (1) Pressure ulcer of left heel, stage 2: CODE(S): L89.622 - Pressure ulcer of left heel, stage 2 (2) Chronic kidney disease (CKD) stage G3a/A2, moderately decreased glomerular filtration rate (GFR) between 45-59 mL/min/1.73 square meter and albuminuria creatinine ratio between 30-299 mg/g: CODE(S): N18.31 - Chronic kidney disease, stage 3a (3) Pain in left foot: CODE(S): M79.672 - Pain in left foot (4) Type II diabetes mellitus: CODE(S): E11.9 - Type 2 diabetes mellitus without complications QUALIFIERS: Diabetes mellitus senior care insulin use: unspecified rat exterminator insulin use status Diabetes mellitus complication status: with neurologic complications Diabetes mellitus complication detail: with polyneuropathy Qualified Code(s): E11.42 - Type 2 diabetes mellitus with diabetic polyneuropathy PLAN: This is a 60-year-old female presenting to the wound care center today with new pressure ulcer of the left heel. Patient has history of left heel ulceration with osteomyelitis back in 2019. She underwent extensive course of IV antibiotics and followed up in the wound care center with Dr. Brown who was able to get the patient to heal with advanced wound care products and weekly wound care visits. Following replacement of her hip in January 2021 she subsequently reopened her left plantar heel wound secondary to placing more pressure at this limb site during her physical therapy and recovery process. Her has been helping her change the dressings to the left lower extremity/heel daily. Patient seen and evaluated. Palpable pedal pulses on examination today. I do not believe this is inhibiting her wound healing status. I believe her left heel wound is secondary to pressure. Ulceration to the left plantar heel demonstrates a pink wound base with scant mixed fibrotic tissue throughout the wound bed with closure of the ulcerative site centrally with a new skin formation. Ulceration site demonstrates no signs of infection. Wound margins demonstrate scant yellow crusting and hyperkeratosis. Ulceration site was sharply debrided as stated in the clinical panel above. This was tolerated well. She has multiple wounds secondary to blister formations to the left and right lower extremity secondary to edema, the sites are healing well and are almost closed. The sites were dressed with Adaptic. Right lower extremity dressed with a 3M compression wrap. Left leg dressed with double Tubigrip stocking and an Daniel wrap. I discussed further controlling of her edema by elevation of her legs and compliance with her compression dressings. Ulceration site left heel dressed with Samantha, Aquacel Ag and dry sterile dressing. Daniel wrap applied to the left lower extremity to aid in control of edema. Dressings to be changed daily. She is to continue to offload the left heel. She continues to demonstrate progression in healing status. Visiting nursing is coming to assist with her dressing changes. Recommend continued visiting nursing twice a week. I discussed with her localized signs of infection. She is to observe for any erythema or redness moving up the leg, malodor to the ulceration site, purulent drainage from the ulceration site, increased pain to the left heel, or if she experiences any nausea, vomiting, fever, chills or other constitutional symptoms that these are signs of a progressing infection and she needs to report to the ED. She voices understanding of this. I reviewed and discussed his case today. Debridement was performed today as noted in the clinical panel to all of the ulcer sites. The following work up and care recommendations were made: Dressing: Samantha and Aquacel Ag-left heel; Adaptic to blister sites, left leg double Tubigrip with an Daniel wrap; right lower extremity 3M compression wrap Wash: Soap and water to left heel Tissue growth optimization: Samantha Offload: Offloading surgical shoe with heel cut out Vascular: Palpable pedal pulses Edema: Elevation of lower extremities and an double Tubigrip and Daniel wrap left lower extremity. 3M compression dressing right lower extremity Infection: No localized signs of infection Pain: Patient may take [id number] Tylenol extra strength for pain control Host factors: Diabetes mellitus type 2, history of osteomyelitis left heel I answered all the patient's questions. To return to the wound healing center in 1 week or call sooner if the patient has any questions or concerns. Note: [employer] speech recognition shuttle final inspector software was used to create portions of this document. Sound-alike and misspelled words, as well as other shuttle final inspector errors may be contained in the documentation.
[2021-08-10 10:08] VITALS: PULSE 88; TEMP 36.6
--- NOTE | 2021-08-10 12:27 | PCM.WC.PN ---
History of Present Illness Date of Service: 08/10/21 Chief Complaint: left heel ulcer left ankle ulcer- healed History of Wound: In October 2019, patient had rubbing in shoes while shopping which led to a blister that developed into an ulceration. Patient was then seen by Dewey Amezquita.P.Usha. for wound care. Patient then became infected and was admitted to the hospital. Patient was noted to have OM on MRI. Patient wanted to avoid surgery so a buttermaker continuous churn course of appropriate IV antibiotics was the treatment chosen. Patient was also noted to have hyperglycemia and has worked with hospitalist and PCP to try to get better control. Blood sugar levels remain elevated. Patient also had LEAS obtained in the hospital which suggested patient had the proper blood flow to allow healing. Patient has since finished buttermaker continuous churn course of antibiotics. Patient has since been seen on a weekly basis in office with progression and regression of wound noted over the weeks. Patient has tried various dressing options including wet to dry and santyl. The most progress was noted with Santyl but patient ran out and was unable to refill due to insurance issues. During which time the wound regressed. She also has an offloading surgical shoe and offloading boot to relieve pressure. Patient care is henceforth being carried out at the wound care center. Patient not currently on any antibiotics. Patient has since began skin graft aplications significant improvement is been noted to her foot overall. Patient has finished epifix graft applications with some very small remaining wound noted to left heel. Patient has new wounds noted to bilateral third digits. The right 3rd digit wound has healed. Her left ankle ulcer remains healed Patient relates that ambulation is getting easier and she is rebuilding her strength slowly. She has not had any worsening of minor remaining heel wound since beginning ambulation again. 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 Her has been helping her change the dressings daily to the left heel. She presents to the wound care center today for continued care of her left heel ulceration. Subjective Subjective 60-year-old female presents to the wound care center for a follow-up of her left heel ulceration. She states visiting nursing has been coming to change her dressings twice a week and her boyfriend assist dressing changes the other days. She is remaining compliant in her offloading status to the left heel. She denies any constitutional symptoms today. She has no other complaints today. Objective Data Objective Data Vital Signs: Vital Signs Temp Pulse Resp BP 97.9 F 88 16 174/60 H 08/10/21 10:08 08/10/21 10:08 08/03/21 10:13 07/30/21 00:14 Oxygen Delivery Method Room Air Physical Exam Const alert, oriented x3 and no apparent distress General Appearance: cooperative and comfortable HEENT normocephalic Eyes General Eye: normal appearance of both eyes Neck General: normal visual inspection Lymph Lymphatic: no lymphadenopathy noted and no lymphedema noted Chest inspection of chest normal and palpation of chest normal Resp normal respiratory effort Cardio regular rate and regular rhythm Extremity normal capillary refill and no calf tenderness General Extremity: edema bilateral Skin no rashes or lesions noted, skin turgor normal and no jaundice Wound Narrative: Right posterior leg abrasion, stable, no localized signs of infection. Right anterior and anterior medial ulceration secondary to blister formation. No signs of infection. Left lower extremity heel decubitus ulceration. Ulcerative site demonstrates pink wound base with scant fibrotic tissue throughout wound bed with serosanguineous drainage and no signs of infection. No palpable fluctuance noted to the left heel. Ulcerative site does have hyperkeratotic tissue about the wound margin. Ulcerative site demonstrates closure centrally with new skin island. Dorsal abrasion digits 3 and 4 left foot secondary to previous blister. There is a hemorrhagic blister of digit 3 of the right foot. The sites demonstrate no signs of infection. Neuro oriented x3 and moves all extremities Motor Exam: strength 5/5 throughout Debridement Note Debridement Note Wound debrided: Left plantar heel Laterality: Left Wound Grade/Stage: Glasgow stage II Type of Debridement: Excisional debridement Anesthesia Used: 5% Lidocaine Gel Depth: Down to and including healthy tissue and in the subcutaneous layer Percentage of wound debrided: 100 Instrument Used: 3mm curette and #15 blade Tissue Removed: Fibrous, devitalized subcutaneous, biofilm, slough Severity: Fat Layer Exposed Amount of bleeding with debridement: Mild Bleeding Controlled with: Compression and gauze Patient tolerated procedure: Patient tolerated procedure well Post-Debridement Measurements and Additional Note: Post-Debridement Measurements/Treatment SAMARIA - Nurse 1 - General Ulcer Assessment Start: 08/03/21 10:13 Freq: Status: Active Protocol: WC.LOWEXT Activity Type Activity Date Activity User E-Sign Co-Sign Detail Recorded Client Recorded Date Recorded By Document 08/03/21 10:13 [facility] [id number] 08/03/21 10:25 [facility] Document 08/10/21 10:08 SC [id number] 08/10/21 10:26 [place] 08/03/21 08/10/21 10:13 10:08 - Today's Visit Information Type of service Follow-up Visit Follow-up Visit (Physician/COIL [facility]ER [facility] (Physician/[facility] ) ) Arrival Mode Ambulatory, Ambulatory, Walker Walker Patient Identification Verified (Name & Yes Yes ) Patient Requires Transmission-Based No No Precautions Vital Signs Temperature (97.8 F-99.1 F) 97.1 F L 97.9 F Temperature Source Temporal Temporal Pulse Rate (60-100) 88 Pulse Location Monitor Monitor Respiratory Rate (12-18) 16 Respiratory rate source Observation Oxygen Delivery Method Room Air Source Monitor Position Sitting Blood Pressure Location Left Arm History Since Last Visit- (Skip if this is Patient's initial visit) Have you changed medications since your No No last visit? Any new allergies or adverse reactions No No Had a fall/change in ADL's that may No No increase risk of falls Signs or symptoms of abuse and/or No No neglect since last visit Have you been in the hospital since your No No last visit? Has dressing in place as prescribed Yes Yes Has compression in place as prescribed Yes Yes Has offloadiing in place as prescribed Yes N/A Experienced any changes in pain level or No No management Left Footwear Slipper Regular Shoe Right Footwear Slipper Regular Shoe Pain Scale: 0-10 Numeric Is Patient Pain Free? Yes Yes - Nurse 1 - General Ulcer Measurement Start: 08/03/21 10:13 Freq: Status: Active Protocol: Activity Type Activity Date Activity User E-Sign Co-Sign Detail Recorded Client Recorded Date Recorded By Document 08/03/21 10:13 [facility] [id number] 08/03/21 10:25 [facility] Document 08/10/21 10:08 SC [id number] 08/10/21 10:26 SC 08/03/21 08/10/21 10:13 10:08 Wound Center Nurse 1 #11 Left 3rd toe -Combined with other wound No No -Current Size (cm) - Length 0.2 0.2 -Current Size (cm) - Width 1.6 0.3 -Current Size (cm) - Depth 0.1 0.1 -Total Square Cm 0.32 0.06 -Photo Taken No No -Epithelialization None Present -Tunneling No No -Undermining/Tunneling No No -Circular Undermining No -Change in Wound Grade/Stage No -Exudate Amt Small Small -Exudate Type Serosanguineous Purulent -Wound Margin Distinct, Distinct, Outline Outline Attached Attached -Granulation Amt None Present (0 None Present (0 %) %) -Granulation Quality N/A -Slough/Fibrin Yes No -Necrosis Amt Large (67-100%) None Present (0 %) -Necrotic Tissue Type Adherent Slough -Structure Exposed N/A -Texture (Bren-wound Skin Appearance) Assessed, No Abnormality, Scarring Assessed -Moisture (Bren-wound Skin Appearance) Assessed,Dry/ No Abnormality, Scaly Assessed -Color (Bren-wound Skin Appearance) Assessed, No Abnormality, Erythema Assessed -Temperature (Bren-wound Skin No Abnormality No Abnormality Appearance) (Pt Warm) (Pt Warm) -Tenderness on Palpation (Bren-wound No No Skin Appearance) -Ulcer Cleansing Soap and Water Soap and Water -Foul Odor after Cleansing No No -Anesthetic Used 4% Lidocaine 4% Lidocaine Solution Solution #10 Left Lower rick -Combined with other wound No No -Current Size (cm) - Length 1.2 5 -Current Size (cm) - Width 27 12 -Current Size (cm) - Depth 0.1 0.1 -Total Square Cm 32.4 60 -Photo Taken No No -Epithelialization None Present -Tunneling No No -Undermining/Tunneling No No -Circular Undermining No No -Change in Wound Grade/Stage No -Exudate Amt None Present Medium -Exudate Type Serosanguineous -Wound Margin Distinct, Distinct, Outline Outline Attached Attached -Granulation Amt None Present (0 None Present (0 %) %) -Granulation Quality N/A -Slough/Fibrin Yes No -Necrosis Amt Large (67-100%) None Present (0 %) -Necrotic Tissue Type Adherent Slough -Structure Exposed N/A -Texture (Bren-wound Skin Appearance) Assessed, No Abnormality, Scarring Assessed -Moisture (Bren-wound Skin Appearance) Assessed Assessed,Dry/ Scaly -Color (Bren-wound Skin Appearance) Assessed No Abnormality, Assessed -Temperature (Bren-wound Skin No Abnormality No Abnormality Appearance) (Pt Warm) (Pt Warm) -Tenderness on Palpation (Bren-wound No No Skin Appearance) -Ulcer Cleansing Soap and Water Soap and Water -Foul Odor after Cleansing No No -Anesthetic Used 4% Lidocaine 4% Lidocaine Solution Solution -Wound Comment(s) clustered scabs #9 Right Lower Extremity -Combined with other wound No -Current Size (cm) - Length 1.3 0.1 -Current Size (cm) - Width 4.3 0.1 -Current Size (cm) - Depth 0.1 0.1 -Total Square Cm 5.59 0.01 -Photo Taken No No -Epithelialization Small 1-33% -Tunneling No No -Undermining/Tunneling No No -Circular Undermining No No -Change in Wound Grade/Stage No -Exudate Amt Small -Exudate Type Serosanguineous -Wound Margin Distinct, Outline Attached -Granulation Amt Large (67-100%) -Granulation Quality Red -Slough/Fibrin No No -Necrosis Amt None Present (0 %) -Texture (Bren-wound Skin Appearance) Assessed, No Abnormality, Scarring Assessed -Moisture (Bren-wound Skin Appearance) Assessed No Abnormality, Assessed -Color (Bren-wound Skin Appearance) Assessed, No Abnormality, Erythema Assessed -Temperature (Bren-wound Skin No Abnormality No Abnormality Appearance) (Pt Warm) (Pt Warm) -Tenderness on Palpation (Bren-wound No No Skin Appearance) -Ulcer Cleansing Soap and Water Rinsed/ Irrigated with Saline -Foul Odor after Cleansing No No -Anesthetic Used 4% Lidocaine 4% Lidocaine Solution Solution 6-left heel -Combined with other wound No No -Current Size (cm) - Length 2.4 2 -Current Size (cm) - Width 3.9 3.5 -Current Size (cm) - Depth 0.2 0.1 -Total Square Cm 9.36 7.0 -Photo Taken No No -Epithelialization None Present -Tunneling No No -Undermining/Tunneling No No -Circular Undermining No No -Exudate Amt Medium Small -Exudate Type Serosanguineous -Wound Margin Distinct, Well Defined, Outline Not Attached Attached -Granulation Amt Medium (34-66%) Medium (34-66%) -Granulation Quality [place],Red -Slough/Fibrin Yes Yes -Necrosis Amt Medium (34-66%) Small (1-33%) -Necrotic Tissue Type Adherent Slough Adherent Slough -Structure Exposed N/A -Texture (Bren-wound Skin Appearance) Assessed, Assessed,Callus Scarring -Moisture (Bren-wound Skin Appearance) Assessed Assessed,Dry/ Scaly -Color (Bren-wound Skin Appearance) Assessed, No Abnormality, Erythema Assessed -Temperature (Bren-wound Skin No Abnormality No Abnormality Appearance) (Pt Warm) (Pt Warm) -Tenderness on Palpation (Bren-wound No Skin Appearance) -Ulcer Cleansing Soap and Water Soap and Water -Foul Odor after Cleansing No No -Anesthetic Used 4% Lidocaine 4% Lidocaine Solution Solution Lower Limb Edema Present Yes Right Calf (cm) 42.4 Right Ankle (cm) 28 WC - Nurse 2 - General Ulcer CM Notes Start: 08/03/21 10:13 Freq: Status: Active Protocol: Activity Type Activity Date Activity User E-Sign Co-Sign Detail Recorded Client Recorded Date Recorded By Document 08/03/21 13:32 PL [id number] 08/03/21 13:34 PL Document 08/10/21 10:51 [id number] 08/10/21 11:11 08/03/21 08/10/21 13:32 10:51 Wound Center Nurse 2 12-left 4th toe -Time 10:55 -Correct Patient Yes -Correct Side, Site, Position Yes -Correct Procedure Yes -Procedure Performed Yes -Type of Procedure Debridement -Clinical Debridement Subcutaneous -Tissue Removed Subcutaneous -Post Debridement (cm) - Length 0.7 -Post Debridement (cm) - Width 1.0 -Post Debridement (cm) - Depth 1 -Total Square (Post) (cm) 0.70 -Area of Debridement (cm) - Length 0.7 -Area of Debridement (cm) - Width 1.0 -Total Square (Area) (cm) 0.70 -Tunneling No -Undermining/Tunneling No -Circular Undermining No -Wound/Ulcer Outcome Not Healed -Ulcer Cleansing Rinsed/ Irrigated with Saline -Foul Odor after Cleansing No -Bioengineered Tissue No -Bleeding Controlled with Pressure -Treatment Response Procedure Tolerated Well -Offloading No -Debridement - Subq, 1st 20sq cm Yes #11 Left 3rd toe -Time 10:52 -Correct Patient Yes -Correct Side, Site, Position Yes -Correct Procedure Yes -Procedure Performed No Yes -Type of Procedure Debridement -Clinical Debridement Subcutaneous -Tissue Removed Subcutaneous -Post Debridement (cm) - Length 0.3 -Post Debridement (cm) - Width 0.3 -Post Debridement (cm) - Depth 0.1 -Total Square (Post) (cm) 0.09 -Area of Debridement (cm) - Length 0.3 -Area of Debridement (cm) - Width 0.3 -Total Square (Area) (cm) 0.09 -Tunneling No -Undermining/Tunneling No -Circular Undermining No -Wound/Ulcer Outcome Not Healed -Ulcer Cleansing Rinsed/ Irrigated with Saline -Foul Odor after Cleansing No -Bioengineered Tissue No -Bleeding Controlled with Pressure -Treatment Response Procedure Tolerated Well -Offloading No -Debridement - Subq, 1st 20sq cm No #10 Left Lower rick -Time 10:53 -Correct Patient Yes -Correct Side, Site, Position Yes -Correct Procedure Yes -Procedure Performed No Yes -Type of Procedure Debridement -Clinical Debridement Subcutaneous -Tissue Removed Subcutaneous -Post Debridement (cm) - Length 5 -Post Debridement (cm) - Width 12.1 -Post Debridement (cm) - Depth 0.1 -Total Square (Post) (cm) 60.5 -Area of Debridement (cm) - Length 5 -Area of Debridement (cm) - Width 12.1 -Total Square (Area) (cm) 60.5 -Tunneling No -Undermining/Tunneling No -Circular Undermining No -Wound/Ulcer Outcome Not Healed -Ulcer Cleansing Rinsed/ Irrigated with Saline -Foul Odor after Cleansing No -Bioengineered Tissue No -Bleeding Controlled with Pressure -Treatment Response Procedure Tolerated Well -Offloading No -Debridement - Subq, 1st 20sq cm Yes -Debridement, SubQ, ea addt'l 20sq cm 3 or part thereof #9 Right Lower Extremity -Time 10:54 -Correct Patient No -Correct Side, Site, Position No -Correct Procedure No -Procedure Performed No No -Post Debridement (cm) - Length 0 -Post Debridement (cm) - Width 0 -Post Debridement (cm) - Depth 0 -Total Square (Post) (cm) 0 -Area of Debridement (cm) - Length 0 -Area of Debridement (cm) - Width 0 -Total Square (Area) (cm) 0 -Tunneling No -Undermining/Tunneling No -Circular Undermining No -Wound/Ulcer Outcome Healed- Epithelialized -Ulcer Cleansing Rinsed/ Irrigated with Saline -Foul Odor after Cleansing No -Bioengineered Tissue No -Bleeding Controlled with Pressure -Treatment Response Procedure Tolerated Well -Offloading No -Debridement - Subq, 1st 20sq cm No 6-left heel -Time 11:10 10:54 -Correct Patient Yes Yes -Correct Side, Site, Position Yes Yes -Correct Procedure Yes Yes -Procedure Performed Yes Yes -Type of Procedure Debridement Debridement -Clinical Debridement Subcutaneous Subcutaneous -Tissue Removed Subcutaneous Subcutaneous -Post Debridement (cm) - Length 2.4 2.1 -Post Debridement (cm) - Width 3.9 3.5 -Post Debridement (cm) - Depth 0.2 0.1 -Total Square (Post) (cm) 9.36 7.35 -Area of Debridement (cm) - Length 2.4 2.1 -Area of Debridement (cm) - Width 3.9 3.5 -Total Square (Area) (cm) 9.36 7.35 -Tunneling No No -Undermining/Tunneling No No -Circular Undermining No No -Wound/Ulcer Outcome Not Healed Not Healed -Ulcer Cleansing Rinsed/ Rinsed/ Irrigated with Irrigated with Saline Saline -Foul Odor after Cleansing No No -Bioengineered Tissue No No -Bleeding Controlled with Pressure Pressure -Treatment Response Procedure Procedure Tolerated Well Tolerated Well -Offloading No -Debridement - Subq, 1st 20sq cm Yes No Pain Scale: 0-10 Numeric Is Patient Pain Free? Yes Yes WC - Nurse 3 - General Ulcer D/C NN Start: 08/03/21 10:13 Freq: Status: Active Protocol: Activity Type Activity Date Activity User E-Sign Co-Sign Detail Recorded Client Recorded Date Recorded By Document 08/03/21 12:26 DONITA [id number] 08/03/21 12:30 [place] Document 08/10/21 11:24 DONITA [id number] 08/10/21 11:27 [place] 08/03/21 08/10/21 12:26 11:24 Wound Care Nurse 3 12-left 4th toe -Ulcer Cleansing Rinsed/ Irrigated with Saline -Foul Odor after Cleansing No -Negative Pressure Wound Therapy N/A -Primary Dressing Applied Aquacel AG 4x4, Promogran -Primary Dressing Covered/Secured with Dry Gauze & Roll Gauze, Secured with Tape -Aquacel AG 4x4 1 -Promogran 1 #11 Left 3rd toe -Ulcer Cleansing Rinsed/ Rinsed/ Irrigated with Irrigated with Saline Saline -Foul Odor after Cleansing No No -Negative Pressure Wound Therapy N/A N/A -Primary Dressing Applied Aquacel AG 4x4, Aquacel AG 4x4, Promogran Promogran -Primary Dressing Covered/Secured with Dry Gauze & Dry Gauze & Roll Gauze, Roll Gauze, Secured with Secured with Tape Tape -Aquacel AG 4x4 1 0 -Optilok 6.5x10 1 -Promogran 0 0 #10 Left Lower rick -Ulcer Cleansing Rinsed/ Rinsed/ Irrigated with Irrigated with Saline Saline -Foul Odor after Cleansing No No -Negative Pressure Wound Therapy N/A N/A -Primary Dressing Applied Aquacel AG 4x4, Aquacel AG 4x4, Promogran Promogran -Primary Dressing Covered/Secured with Dry Gauze & Roll Gauze, Secured with Tape -Aquacel AG 4x4 0 0 -Promogran 0 1 #9 Right Lower Extremity -Ulcer Cleansing Rinsed/ Irrigated with Saline -Foul Odor after Cleansing No -Negative Pressure Wound Therapy N/A -Primary Dressing Applied Aquacel AG 4x4, Promogran -Aquacel AG 4x4 1 -Promogran 0 6-left heel -Ulcer Cleansing Rinsed/ Rinsed/ Irrigated with Irrigated with Saline Saline -Foul Odor after Cleansing No No -Negative Pressure Wound Therapy N/A N/A -Primary Dressing Applied NonAdherent Aquacel AG 4x4 Contact Layer -Primary Dressing Covered/Secured with Dry Gauze & Roll Gauze, Secured with Tape -Aquacel AG 4x4 0 -Promogran 0 Right -Lotion applied to leg before No compression wrap -Multi-Layered Wrap Application Multi-Layer Comp - Right ($ ) Pain Scale: 0-10 Numeric Is Patient Pain Free? Yes Yes WC - Visit Discharge Discharge Condition Stable Stable Ambulatory Status Walker Ambulatory, Walker Medication Reconcilliation completed & Yes Yes provided to patient/care provider Clinical Summary of Care Provided Yes Yes Additional Wound Wound debrided: Left leg, digit 3 and 4 Laterality: Left Wound Grade/Stage: Glasgow stage I Type of Debridement: Excisional debridement Depth: Down to and including healthy tissue and in the subcutaneous layer Percentage of wound debrided: 100 Instrument Used: 3mm curette Tissue Removed: Fibrous, devitalized subcutaneous, biofilm, slough Severity: Fat Layer Exposed Amount of bleeding with debridement: Mild Bleeding Controlled with: Compression and gauze Patient tolerated procedure: Patient tolerated procedure well Assessment/Plan Assessment/Plan (1) Pressure ulcer of left heel, stage 2: CODE(S): L89.622 - Pressure ulcer of left heel, stage 2 (2) Chronic kidney disease (CKD) stage G3a/A2, moderately decreased glomerular filtration rate (GFR) between 45-59 mL/min/1.73 square meter and albuminuria creatinine ratio between 30-299 mg/g: CODE(S): N18.31 - Chronic kidney disease, stage 3a (3) Pain in left foot: CODE(S): M79.672 - Pain in left foot (4) Type II diabetes mellitus: CODE(S): E11.9 - Type 2 diabetes mellitus without complications QUALIFIERS: Diabetes mellitus buttermaker continuous churn insulin use: unspecified buttermaker continuous churn insulin use status Diabetes mellitus complication status: with neurologic complications Diabetes mellitus complication detail: with polyneuropathy Qualified Code(s): E11.42 - Type 2 diabetes mellitus with diabetic polyneuropathy PLAN: This is a 60-year-old female presenting to the wound care center today with stage II pressure ulcer of the left heel. She has history of left heel ulceration with osteomyelitis back in 2019. She underwent extensive course of IV antibiotics and followed up in the wound care center with Dr. Brown who was able to get the patient to heal with advanced wound care products and weekly wound care visits. Following replacement of her hip in January 2021 she subsequently reopened her left plantar heel wound secondary to placing more pressure at this limb site during her physical therapy and recovery process. Patient seen and evaluated. Palpable pedal pulses bilaterally. I do not believe this is inhibiting her wound healing status. I believe her left heel wound is secondary to pressure. Ulceration to the left plantar heel demonstrates a pink wound base with scant mixed fibrotic tissue throughout the wound bed with closure of the ulcerative site centrally with a new skin formation. Ulceration site demonstrates no signs of infection. Wound margins demonstrate scant yellow crusting and hyperkeratosis. Ulceration site was sharply debrided as stated in the clinical panel above. This was tolerated well. She has multiple wounds secondary to blister formations to the left extremity secondary to edema, the sites are healing well and are almost closed. Right leg ulceration sites have healed. The sites were dressed with Adaptic. Right lower extremity dressed with double Tubigrip. Left leg dressed with double Tubigrip stocking and an Daniel wrap. I discussed further controlling of her edema by elevation of her legs and compliance with her compression dressings. Ulceration site left heel dressed with Samantha, Aquacel Ag and dry sterile dressing. Daniel wrap applied to the left lower extremity to aid in control of edema. Dressings to be changed daily. She is to continue to offload the left heel. She continues to demonstrate progression in healing status. Visiting nursing is coming to assist with her dressing changes. Recommend continued visiting nursing twice a week. I discussed with her localized signs of infection. She is to observe for any erythema or redness moving up the leg, malodor to the ulceration site, purulent drainage from the ulceration site, increased pain to the left heel, or if she experiences any nausea, vomiting, fever, chills or other constitutional symptoms that these are signs of a progressing infection and she needs to report to the ED. She voices understanding of this. I reviewed and discussed his case today. Debridement was performed today as noted in the clinical panel to all of the ulcer sites. The following work up and care recommendations were made: Dressing: Samantha and Aquacel Ag-left heel; Adaptic to blister sites, left leg double Tubigrip with an Daniel wrap; right lower extremity double Tubigrip Wash: Soap and water to left heel Tissue growth optimization: Samantha Offload: Offloading surgical shoe with heel cut out Vascular: Palpable pedal pulses Edema: Elevation of lower extremities and an double Tubigrip and Daniel wrap left lower extremity. Double Tubigrip right lower extremity Infection: No localized signs of infection Pain: Patient may take [id number] Tylenol extra strength for pain control Host factors: Diabetes mellitus type 2, history of osteomyelitis left heel I answered all the patient's questions. To return to the wound healing center in 1 week or call sooner if the patient has any questions or concerns. Note: [employer] speech recognition bulk station agent software was used to create portions of this document. Sound-alike and misspelled words, as well as [id number] [email or web address] [id number] [phone] [id number] in the [id number]
[2021-08-17 10:22] VITALS: BP 152/90; PULSE 77; RESP 16; TEMP 36.1
--- NOTE | 2021-08-17 13:57 | PCM.WC.PN ---
History of Present Illness Date of Service: 08/17/21 Chief Complaint: left heel ulcer left ankle ulcer- healed History of Wound: In October 2019, patient had rubbing in shoes while shopping which led to a blister that developed into an ulceration. Patient was then seen by Dewey Amezquita.P.M. for wound care. Patient then became infected and was admitted to the hospital. Patient was noted to have OM on MRI. Patient wanted to avoid surgery so a equipment operator intermodal yard course of appropriate IV antibiotics was the treatment chosen. Patient was also noted to have hyperglycemia and has worked with hospitalist and PCP to try to get better control. Blood sugar levels remain elevated. Patient also had LEAS obtained in the hospital which suggested patient had the proper blood flow to allow healing. Patient has since finished equipment operator intermodal yard course of antibiotics. Patient has since been seen on a weekly basis in office with progression and regression of wound noted over the weeks. Patient has tried various dressing options including wet to dry and santyl. The most progress was noted with Santyl but patient ran out and was unable to refill due to insurance issues. During which time the wound regressed. She also has an offloading surgical shoe and offloading boot to relieve pressure. Patient care is henceforth being carried out at the wound care center. Patient not currently on any antibiotics. Patient has since began skin graft aplications significant improvement is been noted to her foot overall. Patient has finished epifix graft applications with some very small remaining wound noted to left heel. Patient has new wounds noted to bilateral third digits. The right 3rd digit wound has healed. Her left ankle ulcer remains healed Patient relates that ambulation is getting easier and she is rebuilding her strength slowly. She has not had any worsening of minor remaining heel wound since beginning ambulation again. 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 Her has been helping her change the dressings daily to the left heel. She presents to the wound care center today for continued care of her left heel ulceration. Subjective Subjective 60-year-old female presents to the wound care center for a follow-up of her left heel ulceration. She states visiting nursing has been coming to change her dressings twice a week and her boyfriend assist dressing changes the other days. She is remaining compliant in her offloading status to the left heel. She denies any constitutional symptoms today. She has no other complaints today. Objective Data Objective Data Vital Signs: Vital Signs Temp Pulse Resp BP 96.9 F L 77 16 152/90 H 08/17/21 10:22 08/17/21 10:22 08/17/21 10:08/17/21 10:22 Oxygen Delivery Method Room Air Physical Exam Const alert, oriented x3 and no apparent distress General Appearance: cooperative and comfortable HEENT normocephalic Eyes General Eye: normal appearance of both eyes Neck General: normal visual inspection Lymph Lymphatic: no lymphadenopathy noted and no lymphedema noted Chest inspection of chest normal and palpation of chest normal Resp normal respiratory effort Cardio regular rate and regular rhythm Extremity normal capillary refill and no calf tenderness General Extremity: edema bilateral Skin no rashes or lesions noted, skin turgor normal and no jaundice Wound Narrative: Right posterior leg abrasion, stable, no localized signs of infection. Right anterior and anterior medial ulceration secondary to blister formation. No signs of infection. Left lower extremity heel decubitus ulceration. Ulcerative site demonstrates pink wound base with scant fibrotic tissue throughout wound bed with serosanguineous drainage and no signs of infection. No palpable fluctuance noted to the left heel. Ulcerative site does have hyperkeratotic tissue about the wound margin. Ulcerative site demonstrates closure centrally with new skin island. Dorsal abrasion digits 3 and 4 left foot secondary to previous blister. There is a hemorrhagic blister of digit 3 of the right foot. The sites demonstrate no signs of infection. Neuro oriented x3 and moves all extremities Motor Exam: strength 5/5 throughout Debridement Note Debridement Note Wound debrided: Left plantar heel Laterality: Left Wound Grade/Stage: Glasgow stage II Type of Debridement: Excisional debridement Anesthesia Used: 5% Lidocaine Gel Depth: Down to and including healthy tissue and in the subcutaneous layer Percentage of wound debrided: 100 Instrument Used: #15 blade Tissue Removed: Fibrous, devitalized subcutaneous, biofilm, slough Severity: Fat Layer Exposed Amount of bleeding with debridement: Mild Bleeding Controlled with: Compression and gauze Patient tolerated procedure: Patient tolerated procedure well Post-Debridement Measurements and Additional Note: Post-Debridement Measurements/Treatment SAMARIA - Nurse 1 - General Ulcer Assessment Start: 08/03/21 10:13 Freq: Status: Active Protocol: MOOK Activity Type Activity Date Activity User E-Sign Co-Sign Detail Recorded Client Recorded Date Recorded By Document 08/03/21 10:13 [facility] [id number] 08/03/21 10:25 [facility] Document 08/10/21 10:08 [place] [id number] 08/10/21 10:26 [place] Document 08/17/21 10:07 [place] [id number] 08/17/21 10:51 [place] Document 08/17/21 10:22 [facility] [id number] 08/17/21 10:43 [facility] 08/03/21 08/10/21 08/17/21 10:13 10:08 10:07 - Today's Visit Information Type of service Follow-up Visit Follow-up Visit Follow-up Visit (Physician/CHANNEL MAN (Physician/CHANNEL MAN (Physician/CHANNEL MAN ) ) ) Arrival Mode Ambulatory, Ambulatory, Ambulatory, Walker Walker Walker Transfer Assistance Patient Identification Verified (Name & Yes Yes Yes ) Patient Requires Transmission-Based No No No Precautions Finger Stick Blood Sugar(mg/dl) (if indicated): Blood Sugar Vital Signs Temperature (97.8 F-99.1 F) 97.1 F L 97.9 F Temperature Source Temporal Temporal Pulse Rate (60-100) 88 Pulse Location Monitor Monitor Respiratory Rate (12-18) 16 Respiratory rate source Observation Oxygen Delivery Method Room Air Blood Pressure (90/60-120/80) Blood Pressure Mean (mm Hg) Source Monitor Position Sitting Blood Pressure Location Left Arm History Since Last Visit- (Skip if this is Patient's initial visit) Have you changed medications since your No No No last visit? Any new allergies or adverse reactions No No No Had a fall/change in ADL's that may No No No increase risk of falls Signs or symptoms of abuse and/or No No No neglect since last visit Have you been in the hospital since your No No No last visit? Has dressing in place as prescribed Yes Yes Yes Has compression in place as prescribed Yes Yes Yes Has offloadiing in place as prescribed Yes N/A N/A Experienced any changes in pain level or No No No management Left Footwear Slipper Regular Shoe Regular Shoe Right Footwear Slipper Regular Shoe Regular Shoe Pain Scale: 0-10 Numeric Is Patient Pain Free? Yes Yes Yes 08/17/21 10:22 - Today's Visit Information Type of service Follow-up Visit (Physician/CHANNEL MAN ) Arrival Mode Ambulatory, Walker Transfer Assistance None Patient Identification Verified (Name & Yes ) Patient Requires Transmission-Based No Precautions Finger Stick Blood Sugar(mg/dl) (if 160 indicated): Blood Sugar Stated by Patient Vital Signs Temperature (97.8 F-99.1 F) 96.9 F L Temperature Source Temporal Pulse Rate (60-100) 77 Pulse Location Monitor Respiratory Rate (12-18) 16 Respiratory rate source Observation Oxygen Delivery Method Room Air Blood Pressure (90/60-120/80) 152/90 H Blood Pressure Mean (mm Hg) 110 Source Monitor Position Sitting Blood Pressure Location Left Arm History Since Last Visit- (Skip if this is Patient's initial visit) Have you changed medications since your No last visit? Any new allergies or adverse reactions No Had a fall/change in ADL's that may No increase risk of falls Signs or symptoms of abuse and/or No neglect since last visit Have you been in the hospital since your No last visit? Has dressing in place as prescribed Yes Has compression in place as prescribed Yes Has offloadiing in place as prescribed N/A Experienced any changes in pain level or No management Left Footwear Slipper Right Footwear Slipper Pain Scale: 0-10 Numeric Is Patient Pain Free? Yes - Nurse 1 - General Ulcer Measurement Start: 08/03/21 10:13 Freq: Status: Active Protocol: Activity Type Activity Date Activity User E-Sign Co-Sign Detail Recorded Client Recorded Date Recorded By Document 08/03/21 10:13 [facility] [id number] 08/03/21 10:25 [facility] Document 08/10/21 10:08 [place] [id number] 08/10/21 10:26 [place] Document 08/17/21 10:22 [facility] [id number] 08/17/21 10:43 [facility] 08/03/21 08/10/21 08/17/21 10:13 10:08 10:22 Wound Center Nurse 1 12-left 4th toe -Combined with other wound No -Current Size (cm) - Length 1.1 -Current Size (cm) - Width 1.4 -Current Size (cm) - Depth 0.1 -Total Square Cm 1.54 -Date of Last Picture (Recall this 08/17/21 field) -Photo Taken Yes -Epithelialization None Present -Tunneling No -Undermining/Tunneling No -Circular Undermining No -Exudate Amt Small -Exudate Type Serous -Wound Margin Distinct, Outline Attached -Granulation Amt None Present (0 %) -Slough/Fibrin Yes -Necrosis Amt Large (67-100%) -Necrotic Tissue Type Adherent Slough -Texture (Bren-wound Skin Appearance) Assessed, Scarring -Moisture (Bren-wound Skin Appearance) Assessed -Color (Bren-wound Skin Appearance) Assessed -Temperature (Bren-wound Skin No Abnormality Appearance) (Pt Warm) -Tenderness on Palpation (Bren-wound No Skin Appearance) -Ulcer Cleansing Soap and Water -Foul Odor after Cleansing No -Anesthetic Used 4% Lidocaine Solution #11 Left 3rd toe -Combined with other wound No No No -Current Size (cm) - Length 0.2 0.2 0 -Current Size (cm) - Width 1.6 0.3 0 -Current Size (cm) - Depth 0.1 0.1 0 -Total Square Cm 0.32 0.06 0 -Date of Last Picture (Recall this 08/17/21 field) -Photo Taken No No Yes -Epithelialization None Present Large 67-100% -Tunneling No No No -Undermining/Tunneling No No No -Circular Undermining No No -Change in Wound Grade/Stage No -Exudate Amt Small Small -Exudate Type Serosanguineous Purulent -Wound Margin Distinct, Distinct, Outline Outline Attached Attached -Granulation Amt None Present (0 None Present (0 %) %) -Granulation Quality N/A -Slough/Fibrin Yes No -Necrosis Amt Large (67-100%) None Present (0 %) -Necrotic Tissue Type Adherent Slough -Structure Exposed N/A -Texture (Bren-wound Skin Appearance) Assessed, No Abnormality, Assessed, Scarring Assessed Scarring -Moisture (Bren-wound Skin Appearance) Assessed,Dry/ No Abnormality, Assessed Scaly Assessed -Color (Bren-wound Skin Appearance) Assessed, No Abnormality, Assessed Erythema Assessed -Temperature (Bren-wound Skin No Abnormality No Abnormality No Abnormality Appearance) (Pt Warm) (Pt Warm) (Pt Warm) -Tenderness on Palpation (Bren-wound No No No Skin Appearance) -Ulcer Cleansing Soap and Water Soap and Water Soap and Water -Foul Odor after Cleansing No No No -Anesthetic Used 4% Lidocaine 4% Lidocaine Solution Solution #10 Left Lower rick -Combined with other wound No No No -Current Size (cm) - Length 1.2 5 5 -Current Size (cm) - Width 27 12 1 -Current Size (cm) - Depth 0.1 0.1 0.1 -Total Square Cm 32.4 60 5 -Date of Last Picture (Recall this 08/17/21 field) -Photo Taken No No Yes -Epithelialization None Present None Present -Tunneling No No No -Undermining/Tunneling No No No -Circular Undermining No No No -Change in Wound Grade/Stage No -Exudate Amt None Present Medium Medium -Exudate Type Serosanguineous Serosanguineous -Wound Margin Distinct, Distinct, Distinct, Outline Outline Outline Attached Attached Attached -Granulation Amt None Present (0 None Present (0 None Present (0 %) %) %) -Granulation Quality N/A -Slough/Fibrin Yes No Yes -Necrosis Amt Large (67-100%) None Present (0 Large (67-100%) %) -Necrotic Tissue Type Adherent Slough Adherent Slough -Structure Exposed N/A -Texture (Bren-wound Skin Appearance) Assessed, No Abnormality, Assessed, Scarring Assessed Scarring -Moisture (Bren-wound Skin Appearance) Assessed Assessed,Dry/ Assessed,Dry/ Scaly Scaly -Color (Bren-wound Skin Appearance) Assessed No Abnormality, Assessed, Assessed Erythema -Temperature (Bren-wound Skin No Abnormality No Abnormality No Abnormality Appearance) (Pt Warm) (Pt Warm) (Pt Warm) -Tenderness on Palpation (Bren-wound No No No Skin Appearance) -Ulcer Cleansing Soap and Water Soap and Water Soap and Water -Foul Odor after Cleansing No No No -Anesthetic Used 4% Lidocaine 4% Lidocaine 4% Lidocaine Solution Solution Solution -Wound Comment(s) clustered scabs #9 Right Lower Extremity -Combined with other wound No -Current Size (cm) - Length 1.3 0.1 -Current Size (cm) - Width 4.3 0.1 -Current Size (cm) - Depth 0.1 0.1 -Total Square Cm 5.59 0.01 -Photo Taken No No -Epithelialization Small 1-33% -Tunneling No No -Undermining/Tunneling No No -Circular Undermining No No -Change in Wound Grade/Stage No -Exudate Amt Small -Exudate Type Serosanguineous -Wound Margin Distinct, Outline Attached -Granulation Amt Large (67-100%) -Granulation Quality Red -Slough/Fibrin No No -Necrosis Amt None Present (0 %) -Texture (Bren-wound Skin Appearance) Assessed, No Abnormality, Scarring Assessed -Moisture (Bren-wound Skin Appearance) Assessed No Abnormality, Assessed -Color (Bren-wound Skin Appearance) Assessed, No Abnormality, Erythema Assessed -Temperature (Bren-wound Skin No Abnormality No Abnormality Appearance) (Pt Warm) (Pt Warm) -Tenderness on Palpation (Bren-wound No No Skin Appearance) -Ulcer Cleansing Soap and Water Rinsed/ Irrigated with Saline -Foul Odor after Cleansing No No -Anesthetic Used 4% Lidocaine 4% Lidocaine Solution Solution 6-left heel -Combined with other wound No No No -Current Size (cm) - Length 2.4 2 2 -Current Size (cm) - Width 3.9 3.5 2.2 -Current Size (cm) - Depth 0.2 0.1 0.1 -Total Square Cm 9.36 7.0 4.4 -Date of Last Picture (Recall this 08/17/21 field) -Photo Taken No No Yes -Epithelialization None Present Small 1-33% -Tunneling No No No -Undermining/Tunneling No No No -Circular Undermining No No No -Exudate Amt Medium Small Small -Exudate Type Serosanguineous Serosanguineous -Wound Margin Distinct, Well Defined, Distinct, Outline Not Attached Outline Attached Attached -Granulation Amt Medium (34-66%) Medium (34-66%) Large (67-100%) -Granulation Quality Red [place],Red Red -Slough/Fibrin Yes Yes Yes -Necrosis Amt Medium (34-66%) Small (1-33%) Small (1-33%) -Necrotic Tissue Type Adherent Slough Adherent Slough Adherent Slough -Structure Exposed N/A -Texture (Bren-wound Skin Appearance) Assessed, Assessed,Callus Assessed, Scarring Scarring -Moisture (Bren-wound Skin Appearance) Assessed Assessed,Dry/ Assessed,Dry/ Scaly Scaly -Color (Bren-wound Skin Appearance) Assessed, No Abnormality, Assessed, Erythema Assessed Erythema -Temperature (Bren-wound Skin No Abnormality No Abnormality No Abnormality Appearance) (Pt Warm) (Pt Warm) (Pt Warm) -Tenderness on Palpation (Bren-wound No No Skin Appearance) -Ulcer Cleansing Soap and Water Soap and Water Soap and Water -Foul Odor after Cleansing No No No -Anesthetic Used 4% Lidocaine 4% Lidocaine 4% Lidocaine Solution Solution Solution Lower Limb Edema Present Yes Yes Right Calf (cm) 42.4 42.7 Right Ankle (cm) 28 26.8 Left Calf (cm) 40.1 Left Ankle (cm) 26.2 WC - Nurse 2 - General Ulcer CM Notes Start: 08/03/21 10:13 Freq: Status: Active Protocol: Activity Type Activity Date Activity User E-Sign Co-Sign Detail Recorded Client Recorded Date Recorded By Document 08/03/21 13:32 PL [id number] 08/03/21 13:34 PL Document 08/10/21 10:51 JF [id number] 08/10/21 11:11 JF Edit Result 08/10/21 10:51 JF (1) [id number] 08/14/21 09:00 PL (1) 12-left 4th toe - Debridement - Subq, 1st 20sq cm Yes => No 08/03/21 08/10/21 13:32 10:51 Wound Center Nurse 2 12-left 4th toe -Time 10:55 -Correct Patient Yes -Correct Side, Site, Position Yes -Correct Procedure Yes -Procedure Performed Yes -Type of Procedure Debridement -Clinical Debridement Subcutaneous -Tissue Removed Subcutaneous -Post Debridement (cm) - Length 0.7 -Post Debridement (cm) - Width 1.0 -Post Debridement (cm) - Depth 1 -Total Square (Post) (cm) 0.70 -Area of Debridement (cm) - Length 0.7 -Area of Debridement (cm) - Width 1.0 -Total Square (Area) (cm) 0.70 -Tunneling No -Undermining/Tunneling No -Circular Undermining No -Wound/Ulcer Outcome Not Healed -Ulcer Cleansing Rinsed/ Irrigated with Saline -Foul Odor after Cleansing No -Bioengineered Tissue No -Bleeding Controlled with Pressure -Treatment Response Procedure Tolerated Well -Offloading No -Debridement - Subq, 1st 20sq cm No #11 Left 3rd toe -Time 10:52 -Correct Patient Yes -Correct Side, Site, Position Yes -Correct Procedure Yes -Procedure Performed No Yes -Type of Procedure Debridement -Clinical Debridement Subcutaneous -Tissue Removed Subcutaneous -Post Debridement (cm) - Length 0.3 -Post Debridement (cm) - Width 0.3 -Post Debridement (cm) - Depth 0.1 -Total Square (Post) (cm) 0.09 -Area of Debridement (cm) - Length 0.3 -Area of Debridement (cm) - Width 0.3 -Total Square (Area) (cm) 0.09 -Tunneling No -Undermining/Tunneling No -Circular Undermining No -Wound/Ulcer Outcome Not Healed -Ulcer Cleansing Rinsed/ Irrigated with Saline -Foul Odor after Cleansing No -Bioengineered Tissue No -Bleeding Controlled with Pressure -Treatment Response Procedure Tolerated Well -Offloading No -Debridement - Subq, 1st 20sq cm No #10 Left Lower rick -Time 10:53 -Correct Patient Yes -Correct Side, Site, Position Yes -Correct Procedure Yes -Procedure Performed No Yes -Type of Procedure Debridement -Clinical Debridement Subcutaneous -Tissue Removed Subcutaneous -Post Debridement (cm) - Length 5 -Post Debridement (cm) - Width 12.1 -Post Debridement (cm) - Depth 0.1 -Total Square (Post) (cm) 60.5 -Area of Debridement (cm) - Length 5 -Area of Debridement (cm) - Width 12.1 -Total Square (Area) (cm) 60.5 -Tunneling No -Undermining/Tunneling No -Circular Undermining No -Wound/Ulcer Outcome Not Healed -Ulcer Cleansing Rinsed/ Irrigated with Saline -Foul Odor after Cleansing No -Bioengineered Tissue No -Bleeding Controlled with Pressure -Treatment Response Procedure Tolerated Well -Offloading No -Debridement - Subq, 1st 20sq cm Yes -Debridement, SubQ, ea addt'l 20sq cm 3 or part thereof #9 Right Lower Extremity -Time 10:54 -Correct Patient No -Correct Side, Site, Position No -Correct Procedure No -Procedure Performed No No -Post Debridement (cm) - Length 0 -Post Debridement (cm) - Width 0 -Post Debridement (cm) - Depth 0 -Total Square (Post) (cm) 0 -Area of Debridement (cm) - Length 0 -Area of Debridement (cm) - Width 0 -Total Square (Area) (cm) 0 -Tunneling No -Undermining/Tunneling No -Circular Undermining No -Wound/Ulcer Outcome Healed- Epithelialized -Ulcer Cleansing Rinsed/ Irrigated with Saline -Foul Odor after Cleansing No -Bioengineered Tissue No -Bleeding Controlled with Pressure -Treatment Response Procedure Tolerated Well -Offloading No -Debridement - Subq, 1st 20sq cm No 6-left heel -Time 11:10 10:54 -Correct Patient Yes Yes -Correct Side, Site, Position Yes Yes -Correct Procedure Yes Yes -Procedure Performed Yes Yes -Type of Procedure Debridement Debridement -Clinical Debridement Subcutaneous Subcutaneous -Tissue Removed Subcutaneous Subcutaneous -Post Debridement (cm) - Length 2.4 2.1 -Post Debridement (cm) - Width 3.9 3.5 -Post Debridement (cm) - Depth 0.2 0.1 -Total Square (Post) (cm) 9.36 7.35 -Area of Debridement (cm) - Length 2.4 2.1 -Area of Debridement (cm) - Width 3.9 3.5 -Total Square (Area) (cm) 9.36 7.35 -Tunneling No No -Undermining/Tunneling No No -Circular Undermining No No -Wound/Ulcer Outcome Not Healed Not Healed -Ulcer Cleansing Rinsed/ Rinsed/ Irrigated with Irrigated with Saline Saline -Foul Odor after Cleansing No No -Bioengineered Tissue No No -Bleeding Controlled with Pressure Pressure -Treatment Response Procedure Procedure Tolerated Well Tolerated Well -Offloading No -Debridement - Subq, 1st 20sq cm Yes No Pain Scale: 0-10 Numeric Is Patient Pain Free? Yes Yes WC - Nurse 3 - General Ulcer D/C NN Start: 08/03/21 10:13 Freq: Status: Active Protocol: Activity Type Activity Date Activity User E-Sign Co-Sign Detail Recorded Client Recorded Date Recorded By Document 08/03/21 12:26 [place] [id number] 08/03/21 12:30 [place] Document 08/10/21 11:24 DONITA [id number] 08/10/21 11:27 [place] Document 08/17/21 12:14 [place] [id number] 08/17/21 12:17 [place] 08/03/21 08/10/21 08/17/21 12:26 11:24 12:14 Wound Care Nurse 3 12-left 4th toe -Ulcer Cleansing Rinsed/ Rinsed/ Irrigated with Irrigated with Saline Saline -Foul Odor after Cleansing No No -Negative Pressure Wound Therapy N/A N/A -Primary Dressing Applied Aquacel AG 4x4, Aquacel AG 4x4, Promogran Promogran Samantha Matter -Primary Dressing Covered/Secured with Dry Gauze & Roll Gauze, Secured with Tape -Aquacel AG 4x4 1 2 -Promogran 1 -Promogran Samantha Matter 2 #11 Left 3rd toe -Ulcer Cleansing Rinsed/ Rinsed/ Rinsed/ Irrigated with Irrigated with Irrigated with Saline Saline Saline -Foul Odor after Cleansing No No No -Negative Pressure Wound Therapy N/A N/A N/A -Primary Dressing Applied Aquacel AG 4x4, Aquacel AG 4x4, Aquacel AG 4x4, Promogran Promogran Promogran Samantha Matter -Primary Dressing Covered/Secured with Dry Gauze & Dry Gauze & Roll Gauze, Roll Gauze, Secured with Secured with Tape Tape -Aquacel AG 4x4 1 0 0 -Optilok 6.5x10 1 -Promogran 0 0 -Promogran Samantha Matter 0 #10 Left Lower rick -Ulcer Cleansing Rinsed/ Rinsed/ Irrigated with Irrigated with Saline Saline -Foul Odor after Cleansing No No -Negative Pressure Wound Therapy N/A N/A -Primary Dressing Applied Aquacel AG 4x4, Aquacel AG 4x4, Promogran Promogran -Primary Dressing Covered/Secured with Dry Gauze & Roll Gauze, Secured with Tape -Aquacel AG 4x4 0 0 -Promogran 0 1 #9 Right Lower Extremity -Ulcer Cleansing Rinsed/ Irrigated with Saline -Foul Odor after Cleansing No -Negative Pressure Wound Therapy N/A -Primary Dressing Applied Aquacel AG 4x4, Promogran -Aquacel AG 4x4 1 -Promogran 0 6-left heel -Ulcer Cleansing Rinsed/ Rinsed/ Rinsed/ Irrigated with Irrigated with Irrigated with Saline Saline Saline -Foul Odor after Cleansing No No No -Negative Pressure Wound Therapy N/A N/A N/A -Primary Dressing Applied NonAdherent Aquacel AG 4x4 Aquacel AG 4x4, Contact Layer Promogran Samantha Matter -Primary Dressing Covered/Secured with Dry Gauze & Roll Gauze, Secured with Tape -Aquacel AG 4x4 0 0 -Promogran 0 -Promogran Samantha Matter 0 Right -Lotion applied to leg before No No compression wrap -Multi-Layered Wrap Application Multi-Layer Comp - Right ($ ) -Compression Wrap Surepress ($) -Other x2 Pain Scale: 0-10 Numeric Is Patient Pain Free? Yes Yes Yes WC - Visit Discharge Discharge Condition Stable Stable Stable Ambulatory Status Walker Ambulatory, Wheelchair Walker Medication Reconcilliation completed & Yes Yes Yes provided to patient/care provider Clinical Summary of Care Provided Yes Yes Yes Additional Wound Wound debrided: Left lower extremity lateral leg, posterior leg Laterality: Left Wound Grade/Stage: Glasgow stage I Type of Debridement: Excisional debridement Anesthesia Used: 5% Lidocaine Gel Depth: Down to and including healthy tissue and in the subcutaneous layer Percentage of wound debrided: 100 Instrument Used: #15 blade Tissue Removed: Fibrous, devitalized subcutaneous, biofilm, slough Severity: Fat Layer Exposed Amount of bleeding with debridement: Mild Bleeding Controlled with: Compression and gauze Patient tolerated procedure: Patient tolerated procedure well Assessment/Plan Assessment/Plan (1) Pressure ulcer of left heel, stage 2: CODE(S): L89.622 - Pressure ulcer of left heel, stage 2 (2) Chronic kidney disease (CKD) stage G3a/A2, moderately decreased glomerular filtration rate (GFR) between 45-59 mL/min/1.73 square meter and albuminuria creatinine ratio between 30-299 mg/g: CODE(S): N18.31 - Chronic kidney disease, stage 3a (3) Pain in left foot: CODE(S): M79.672 - Pain in left foot (4) Type II diabetes mellitus: CODE(S): E11.9 - Type 2 diabetes mellitus without complications QUALIFIERS: Diabetes mellitus nursing home insulin use: unspecified nursing home insulin use status Diabetes mellitus complication status: with neurologic complications Diabetes mellitus complication detail: with polyneuropathy Qualified Code(s): E11.42 - Type 2 diabetes mellitus with diabetic polyneuropathy PLAN: This is a 60-year-old female presenting to the wound care center today with stage II pressure ulcer of the left heel. She has history of left heel ulceration with osteomyelitis back in [address] Brown. Following replacement of her hip in January 2021 she subsequently reopened her left plantar heel secondary to placing more pressure at this limb site during her physical therapy and recovery process. Patient seen and evaluated. Ulceration to the left plantar heel demonstrates a pink wound base with scant mixed fibrotic tissue throughout the wound bed with continued closure of the ulcerative site with a new skin formation. Ulceration site demonstrates no signs of infection. Wound margins demonstrate scant yellow crusting and hyperkeratosis. Ulceration site was sharply debrided as stated in the clinical panel above. This was tolerated well. She has multiple wounds secondary to blister formations to the left extremity secondary to edema. There is new blister formations today to lateral and posterior left leg, these were drained and de-roofed. Right leg ulceration sites have healed and remain closed. The blister sites were dressed with Adaptic. Right lower extremity dressed with double Tubigrip. Left leg dressed with compression wrap. I discussed with her again further controlling of her edema by elevation of her legs and compliance with her compression dressings. Ulceration site left heel dressed with Samantha, Aquacel Ag and dry sterile dressing. Compression wrap applied to the left lower extremity to aid in control of edema. Dressings to be changed daily. She is to continue to offload the left heel. She continues to demonstrate progression in healing status. Visiting nursing is coming to assist with her dressing changes. Recommend continued visiting nursing twice a week. I discussed with her localized signs of infection. She is to observe for any erythema or redness moving up the leg, malodor to the ulceration site, purulent drainage from the ulceration site, increased pain to the left heel, or if she experiences any nausea, vomiting, fever, chills or other constitutional symptoms that these are signs of a progressing infection and she needs to report to the ED. She voices understanding of this. I reviewed and discussed her case today. Debridement was performed today as noted in the clinical panel to all of the ulcer sites. The following work up and care recommendations were made: Dressing: Samantha and Aquacel Ag-left heel; Adaptic to blister sites, left leg Compression wrap; right lower extremity double Tubigrip Wash: Soap and water to left heel Tissue growth optimization: Samantha Offload: Offloading surgical shoe with heel cut out Vascular: Palpable pedal pulses Edema: Elevation of lower extremities and Compression wrap left lower extremity. Double Tubigrip right lower extremity Infection: No localized signs of infection Pain: Patient may take [id number] Tylenol extra strength for pain control Host factors: Diabetes mellitus type 2, history of osteomyelitis left heel I answered all the patient's questions. To return to the wound healing center in 1 week or call sooner if the patient has any questions or concerns. Note: [employer] speech recognition auto body mechanic apprentice software was used to create portions of this document. Sound-alike and misspelled words, as well as other auto body mechanic apprentice errors may be contained in the documentation.
[2021-08-24 10:15] VITALS: BP 187/90; PULSE 71; TEMP 36.1
--- NOTE | 2021-08-24 12:06 | PCM.WC.PN ---
History of Present Illness Date of Service: 08/24/21 Chief Complaint: left heel ulcer left ankle ulcer- healed History of Wound: In October 2019, patient had rubbing in shoes while shopping which led to a blister that developed into an ulceration. Patient was then seen by Dewey Amezquita.P.M. for wound care. Patient then became infected and was admitted to the hospital. Patient was noted to have OM on MRI. Patient wanted to avoid surgery so a moth exterminator course of appropriate IV antibiotics was the treatment chosen. Patient was also noted to have hyperglycemia and has worked with hospitalist and PCP to try to get better control. Blood sugar levels remain elevated. Patient also had LEAS obtained in the hospital which suggested patient had the proper blood flow to allow healing. Patient has since finished moth exterminator course of antibiotics. Patient has since been seen on a weekly basis in office with progression and regression of wound noted over the weeks. Patient has tried various dressing options including wet to dry and santyl. The most progress was noted with Santyl but patient ran out and was unable to refill due to insurance issues. During which time the wound regressed. She also has an offloading surgical shoe and offloading boot to relieve pressure. Patient care is henceforth being carried out at the wound care center. Patient not currently on any antibiotics. Patient has since began skin graft aplications significant improvement is been noted to her foot overall. Patient has finished epifix graft applications with some very small remaining wound noted to left heel. Patient has new wounds noted to bilateral third digits. The right 3rd digit wound has healed. Her left ankle ulcer remains healed Patient relates that ambulation is getting easier and she is rebuilding her strength slowly. She has not had any worsening of minor remaining heel wound since beginning ambulation again. 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 Her has been helping her change the dressings daily to the left heel. She presents to the wound care center today for continued care of her left heel ulceration. Subjective Subjective 60-year-old female presents to the wound care center for a follow-up of her left heel ulceration. She states visiting nursing did not come and change her dressings at all last week. She is remaining compliant in her offloading status to the left heel. She denies any constitutional symptoms today. She has no other complaints today. Objective Data Objective Data Vital Signs: Vital Signs Temp Pulse Resp BP 97.0 F L 71 16 187/90 H 08/24/21 10:15 08/24/21 10:15 08/17/21 10:22 08/24/21 10:15 Oxygen Delivery Method Room Air Physical Exam Const alert, oriented x3 and no apparent distress General Appearance: cooperative and comfortable HEENT normocephalic Eyes General Eye: normal appearance of both eyes Neck General: normal visual inspection Lymph Lymphatic: no lymphadenopathy noted and no lymphedema noted Chest inspection of chest normal and palpation of chest normal Resp normal respiratory effort Cardio regular rate and regular rhythm Extremity normal capillary refill and no calf tenderness General Extremity: edema bilateral Skin no rashes or lesions noted, skin turgor normal and no jaundice Wound Narrative: Right posterior leg abrasion, stable, no localized signs of infection. Right anterior and anterior medial ulceration secondary to blister formation. No signs of infection. Left lower extremity heel decubitus ulceration. Ulcerative site demonstrates pink wound base with scant fibrotic tissue throughout wound bed with serosanguineous drainage and no signs of infection. No palpable fluctuance noted to the left heel. Ulcerative site does have hyperkeratotic tissue about the wound margin. Ulcerative site demonstrates closure centrally with new skin island. Dorsal abrasion digits 3 and 4 left foot secondary to previous blister. There is a hemorrhagic blister of digit 3 and 4 of the right foot. The sites demonstrate no signs of infection. Neuro oriented x3 and moves all extremities Motor Exam: strength 5/5 throughout Debridement Note Debridement Note Wound debrided: Plantar heel Laterality: Left Wound Grade/Stage: Glasgow stage II Type of Debridement: Excisional debridement Anesthesia Used: 5% Lidocaine Gel Depth: Down to and including healthy tissue and in the subcutaneous layer Percentage of wound debrided: 100 Instrument Used: 3mm curette Tissue Removed: Fibrous, devitalized subcutaneous, biofilm, slough Severity: Fat Layer Exposed Amount of bleeding with debridement: Mild Bleeding Controlled with: Compression and gauze Patient tolerated procedure: Patient tolerated procedure well Post-Debridement Measurements and Additional Note: Post-Debridement Measurements/Treatment SAMARIA - Nurse 1 - General Ulcer Assessment Start: 08/03/21 10:13 Freq: Status: Active Protocol: MOOK Activity Type Activity Date Activity User E-Sign Co-Sign Detail Recorded Client Recorded Date Recorded By Document 08/03/21 10:13 [facility] [id number] 08/03/21 10:25 [facility] Document 08/10/21 10:08 [place] [id number] 08/10/21 10:26 [facility] Document 08/17/21 10:07 [place] [id number] 08/17/21 10:51 [facility] Document 08/17/21 10:22 [facility] [id number] 08/17/21 10:43 [facility] Document 08/24/21 10:15 KR [id number] 08/24/21 10:25 KR 08/03/21 08/10/21 08/17/21 10:13 10:08 10:07 - Today's Visit Information Type of service Follow-up Visit Follow-up Visit Follow-up Visit (Physician/SENIOR MILITARY ANALYST (Physician/SENIOR MILITARY ANALYST (Physician/SENIOR MILITARY ANALYST ) ) ) Arrival Mode Ambulatory, Ambulatory, Ambulatory, Walker Walker Walker Transfer Assistance Patient Identification Verified (Name & Yes Yes Yes ) Patient Requires Transmission-Based No No No Precautions Finger Stick Blood Sugar(mg/dl) (if indicated): Blood Sugar Vital Signs Temperature (97.8 F-99.1 F) 97.1 F L 97.9 F Temperature Source Temporal Temporal Pulse Rate (60-100) 88 Pulse Location Monitor Monitor Respiratory Rate (12-18) 16 Respiratory rate source Observation Oxygen Delivery Method Room Air Blood Pressure (90/60-120/80) Blood Pressure Mean (mm Hg) Source Monitor Position Sitting Blood Pressure Location Left Arm History Since Last Visit- (Skip if this is Patient's initial visit) Have you changed medications since your No No No last visit? Any new allergies or adverse reactions No No No Had a fall/change in ADL's that may No No No increase risk of falls Signs or symptoms of abuse and/or No No No neglect since last visit Have you been in the hospital since your No No No last visit? Has dressing in place as prescribed Yes Yes Yes Has compression in place as prescribed Yes Yes Yes Has offloadiing in place as prescribed Yes N/A N/A Experienced any changes in pain level or No No No management Left Footwear Slipper Regular Shoe Regular Shoe Right Footwear Slipper Regular Shoe Regular Shoe Pain Scale: 0-10 Numeric Is Patient Pain Free? Yes Yes Yes 08/17/21 08/24/21 10:22 10:15 - Today's Visit Information Type of service Follow-up Visit Follow-up Visit (Physician/SENIOR MILITARY ANALYST (Physician/SENIOR MILITARY ANALYST ) ) Arrival Mode Ambulatory, Walker Walker Transfer Assistance None Patient Identification Verified (Name & Yes Yes ) Patient Requires Transmission-Based No Precautions Finger Stick Blood Sugar(mg/dl) (if 160 indicated): Blood Sugar Stated by Patient Vital Signs Temperature (97.8 F-99.1 F) 96.9 F L 97.0 F L Temperature Source Temporal Temporal Pulse Rate (60-100) 77 71 Pulse Location Monitor Monitor Respiratory Rate (12-18) 16 Respiratory rate source Observation Oxygen Delivery Method Room Air Blood Pressure (90/60-120/80) 152/90 H 187/90 H Blood Pressure Mean (mm Hg) 110 122 Source Monitor Monitor Position Sitting Sitting Blood Pressure Location Left Arm Right Arm History Since Last Visit- (Skip if this is Patient's initial visit) Have you changed medications since your No No last visit? Any new allergies or adverse reactions No No Had a fall/change in ADL's that may No No increase risk of falls Signs or symptoms of abuse and/or No No neglect since last visit Have you been in the hospital since your No No last visit? Has dressing in place as prescribed Yes Yes Has compression in place as prescribed Yes Yes Has offloadiing in place as prescribed N/A N/A Experienced any changes in pain level or No No management Left Footwear Slipper Regular Shoe Right Footwear Slipper Regular Shoe Pain Scale: 0-10 Numeric Is Patient Pain Free? Yes Yes - Nurse 1 - General Ulcer Measurement Start: 08/03/21 10:13 Freq: Status: Active Protocol: Activity Type Activity Date Activity User E-Sign Co-Sign Detail Recorded Client Recorded Date Recorded By Document 08/03/21 10:13 [facility] [id number] 08/03/21 10:25 [facility] Document 08/10/21 10:08 [place] [id number] 08/10/21 10:26 [place] Document 08/17/21 10:22 [facility] [id number] 08/17/21 10:43 [facility] Document 08/24/21 10:15 [id number] 08/24/21 10:25 KR 08/03/21 08/10/21 08/17/21 10:13 10:08 10:22 Wound Center Nurse 1 12-left 4th toe -Combined with other wound No -Current Size (cm) - Length 1.1 -Current Size (cm) - Width 1.4 -Current Size (cm) - Depth 0.1 -Total Square Cm 1.54 -Date of Last Picture (Recall this 08/17/21 field) -Photo Taken Yes -Epithelialization None Present -Tunneling No -Undermining/Tunneling No -Circular Undermining No -Exudate Amt Small -Exudate Type Serous -Wound Margin Distinct, Outline Attached -Granulation Amt None Present (0 %) -Slough/Fibrin Yes -Necrosis Amt Large (67-100%) -Necrotic Tissue Type Adherent Slough -Texture (Bren-wound Skin Appearance) Assessed, Scarring -Moisture (Bren-wound Skin Appearance) Assessed -Color (Bren-wound Skin Appearance) Assessed -Temperature (Bren-wound Skin No Abnormality Appearance) (Pt Warm) -Tenderness on Palpation (Bren-wound No Skin Appearance) -Ulcer Cleansing Soap and Water -Foul Odor after Cleansing No -Anesthetic Used 4% Lidocaine Solution #11 Left 3rd toe -Combined with other wound No No No -Current Size (cm) - Length 0.2 0.2 0 -Current Size (cm) - Width 1.6 0.3 0 -Current Size (cm) - Depth 0.1 0.1 0 -Total Square Cm 0.32 0.06 0 -Date of Last Picture (Recall this 08/17/21 field) -Photo Taken No No Yes -Epithelialization None Present Large 67-100% -Tunneling No No No -Undermining/Tunneling No No No -Circular Undermining No No -Change in Wound Grade/Stage No -Exudate Amt Small Small -Exudate Type Serosanguineous Purulent -Wound Margin Distinct, Distinct, Outline Outline Attached Attached -Granulation Amt None Present (0 None Present (0 %) %) -Granulation Quality N/A -Slough/Fibrin Yes No -Necrosis Amt Large (67-100%) None Present (0 %) -Necrotic Tissue Type Adherent Slough -Structure Exposed N/A -Texture (Bren-wound Skin Appearance) Assessed, No Abnormality, Assessed, Scarring Assessed Scarring -Moisture (Bren-wound Skin Appearance) Assessed,Dry/ No Abnormality, Assessed Scaly Assessed -Color (Bren-wound Skin Appearance) Assessed, No Abnormality, Assessed Erythema Assessed -Temperature (Bren-wound Skin No Abnormality No Abnormality No Abnormality Appearance) (Pt Warm) (Pt Warm) (Pt Warm) -Tenderness on Palpation (Bren-wound No No No Skin Appearance) -Ulcer Cleansing Soap and Water Soap and Water Soap and Water -Foul Odor after Cleansing No No No -Anesthetic Used 4% Lidocaine 4% Lidocaine Solution Solution #10 Left Lower rick -Combined with other wound No No No -Current Size (cm) - Length 1.2 5 5 -Current Size (cm) - Width 27 12 1 -Current Size (cm) - Depth 0.1 0.1 0.1 -Total Square Cm 32.4 60 5 -Date of Last Picture (Recall this 08/17/21 field) -Photo Taken No No Yes -Epithelialization None Present None Present -Tunneling No No No -Undermining/Tunneling No No No -Circular Undermining No No No -Change in Wound Grade/Stage No -Exudate Amt None Present Medium Medium -Exudate Type Serosanguineous Serosanguineous -Wound Margin Distinct, Distinct, Distinct, Outline Outline Outline Attached Attached Attached -Granulation Amt None Present (0 None Present (0 None Present (0 %) %) %) -Granulation Quality N/A -Slough/Fibrin Yes No Yes -Necrosis Amt Large (67-100%) None Present (0 Large (67-100%) %) -Necrotic Tissue Type Adherent Slough Adherent Slough -Structure Exposed N/A -Texture (Bren-wound Skin Appearance) Assessed, No Abnormality, Assessed, Scarring Assessed Scarring -Moisture (Bren-wound Skin Appearance) Assessed Assessed,Dry/ Assessed,Dry/ Scaly Scaly -Color (Bren-wound Skin Appearance) Assessed No Abnormality, Assessed, Assessed Erythema -Temperature (Bren-wound Skin No Abnormality No Abnormality No Abnormality Appearance) (Pt Warm) (Pt Warm) (Pt Warm) -Tenderness on Palpation (Bren-wound No No No Skin Appearance) -Ulcer Cleansing Soap and Water Soap and Water Soap and Water -Foul Odor after Cleansing No No No -Anesthetic Used 4% Lidocaine 4% Lidocaine 4% Lidocaine Solution Solution Solution -Wound Comment(s) clustered scabs #9 Right Lower Extremity -Combined with other wound No -Current Size (cm) - Length 1.3 0.1 -Current Size (cm) - Width 4.3 0.1 -Current Size (cm) - Depth 0.1 0.1 -Total Square Cm 5.59 0.01 -Photo Taken No No -Epithelialization Small 1-33% -Tunneling No No -Undermining/Tunneling No No -Circular Undermining No No -Change in Wound Grade/Stage No -Exudate Amt Small -Exudate Type Serosanguineous -Wound Margin Distinct, Outline Attached -Granulation Amt Large (67-100%) -Granulation Quality Red -Slough/Fibrin No No -Necrosis Amt None Present (0 %) -Texture (Bren-wound Skin Appearance) Assessed, No Abnormality, Scarring Assessed -Moisture (Bren-wound Skin Appearance) Assessed No Abnormality, Assessed -Color (Bren-wound Skin Appearance) Assessed, No Abnormality, Erythema Assessed -Temperature (Bren-wound Skin No Abnormality No Abnormality Appearance) (Pt Warm) (Pt Warm) -Tenderness on Palpation (Bren-wound No No Skin Appearance) -Ulcer Cleansing Soap and Water Rinsed/ Irrigated with Saline -Foul Odor after Cleansing No No -Anesthetic Used 4% Lidocaine 4% Lidocaine Solution Solution 6-left heel -Combined with other wound No No No -Current Size (cm) - Length 2.4 2 2 -Current Size (cm) - Width 3.9 3.5 2.2 -Current Size (cm) - Depth 0.2 0.1 0.1 -Total Square Cm 9.36 7.0 4.4 -Date of Last Picture (Recall this 08/17/21 field) -Photo Taken No No Yes -Epithelialization None Present Small 1-33% -Tunneling No No No -Undermining/Tunneling No No No -Circular Undermining No No No -Exudate Amt Medium Small Small -Exudate Type Serosanguineous Serosanguineous -Wound Margin Distinct, Well Defined, Distinct, Outline Not Attached Outline Attached Attached -Granulation Amt Medium (34-66%) Medium (34-66%) Large (67-100%) -Granulation Quality Red [place],Red Red -Slough/Fibrin Yes Yes Yes -Necrosis Amt Medium (34-66%) Small (1-33%) Small (1-33%) -Necrotic Tissue Type Adherent Slough Adherent Slough Adherent Slough -Structure Exposed N/A -Texture (Bren-wound Skin Appearance) Assessed, Assessed,Callus Assessed, Scarring Scarring -Moisture (Bren-wound Skin Appearance) Assessed Assessed,Dry/ Assessed,Dry/ Scaly Scaly -Color (Bren-wound Skin Appearance) Assessed, No Abnormality, Assessed, Erythema Assessed Erythema -Temperature (Bren-wound Skin No Abnormality No Abnormality No Abnormality Appearance) (Pt Warm) (Pt Warm) (Pt Warm) -Tenderness on Palpation (Bren-wound No No Skin Appearance) -Ulcer Cleansing Soap and Water Soap and Water Soap and Water -Foul Odor after Cleansing No No No -Anesthetic Used 4% Lidocaine 4% Lidocaine 4% Lidocaine Solution Solution Solution Lower Limb Edema Present Yes Yes Right Calf (cm) 42.4 42.7 Right Ankle (cm) 28 26.8 Left Calf (cm) 40.1 Left Ankle (cm) 26.2 08/24/21 10:15 Wound Center Nurse 1 12-left 4th toe -Combined with other wound -Current Size (cm) - Length 0.1 -Current Size (cm) - Width 0.1 -Current Size (cm) - Depth 0.1 -Total Square Cm 0.01 -Date of Last Picture (Recall this field) -Photo Taken -Epithelialization -Tunneling -Undermining/Tunneling -Circular Undermining -Exudate Amt -Exudate Type -Wound Margin Fibrotic Scar, Thickened Scar -Granulation Amt -Slough/Fibrin -Necrosis Amt -Necrotic Tissue Type -Texture (Bren-wound Skin Appearance) Assessed, Scarring -Moisture (Bren-wound Skin Appearance) Assessed,Dry/ Scaly -Color (Bren-wound Skin Appearance) No Abnormality, Assessed -Temperature (Bren-wound Skin No Abnormality Appearance) (Pt Warm) -Tenderness on Palpation (Bren-wound No Skin Appearance) -Ulcer Cleansing Rinsed/ Irrigated with Saline -Foul Odor after Cleansing No -Anesthetic Used 4% Lidocaine Solution #11 Left 3rd toe -Combined with other wound -Current Size (cm) - Length -Current Size (cm) - Width -Current Size (cm) - Depth -Total Square Cm -Date of Last Picture (Recall this field) -Photo Taken -Epithelialization -Tunneling -Undermining/Tunneling -Circular Undermining -Change in Wound Grade/Stage -Exudate Amt -Exudate Type -Wound Margin -Granulation Amt -Granulation Quality -Slough/Fibrin -Necrosis Amt -Necrotic Tissue Type -Structure Exposed -Texture (Bren-wound Skin Appearance) -Moisture (Bren-wound Skin Appearance) -Color (Bren-wound Skin Appearance) -Temperature (Bren-wound Skin Appearance) -Tenderness on Palpation (Bren-wound Skin Appearance) -Ulcer Cleansing -Foul Odor after Cleansing -Anesthetic Used #10 Left Lower rick -Combined with other wound -Current Size (cm) - Length 7.9 -Current Size (cm) - Width 6.8 -Current Size (cm) - Depth 0.1 -Total Square Cm 53.72 -Date of Last Picture (Recall this field) -Photo Taken -Epithelialization -Tunneling -Undermining/Tunneling -Circular Undermining -Change in Wound Grade/Stage -Exudate Amt Medium -Exudate Type Serosanguineous -Wound Margin Distinct, Outline Attached -Granulation Amt Large (67-100%) -Granulation Quality Red -Slough/Fibrin -Necrosis Amt Small (1-33%) -Necrotic Tissue Type Adherent Slough -Structure Exposed -Texture (Bren-wound Skin Appearance) Assessed, Scarring -Moisture (Bren-wound Skin Appearance) No Abnormality, Assessed -Color (Bren-wound Skin Appearance) No Abnormality, Assessed -Temperature (Bren-wound Skin No Abnormality Appearance) (Pt Warm) -Tenderness on Palpation (Bren-wound No Skin Appearance) -Ulcer Cleansing Rinsed/ Irrigated with Saline -Foul Odor after Cleansing No -Anesthetic Used 4% Lidocaine Solution -Wound Comment(s) #9 Right Lower Extremity -Combined with other wound -Current Size (cm) - Length -Current Size (cm) - Width -Current Size (cm) - Depth -Total Square Cm -Photo Taken -Epithelialization -Tunneling -Undermining/Tunneling -Circular Undermining -Change in Wound Grade/Stage -Exudate Amt -Exudate Type -Wound Margin -Granulation Amt -Granulation Quality -Slough/Fibrin -Necrosis Amt -Texture (Bren-wound Skin Appearance) -Moisture (Bren-wound Skin Appearance) -Color (Bren-wound Skin Appearance) -Temperature (Bren-wound Skin Appearance) -Tenderness on Palpation (Bren-wound Skin Appearance) -Ulcer Cleansing -Foul Odor after Cleansing -Anesthetic Used 6-left heel -Combined with other wound -Current Size (cm) - Length 0.1 -Current Size (cm) - Width 0.1 -Current Size (cm) - Depth 0.1 -Total Square Cm 0.01 -Date of Last Picture (Recall this field) -Photo Taken -Epithelialization -Tunneling -Undermining/Tunneling -Circular Undermining -Exudate Amt None Present -Exudate Type -Wound Margin Distinct, Outline Attached -Granulation Amt None Present (0 %) -Granulation Quality -Slough/Fibrin -Necrosis Amt None Present (0 %) -Necrotic Tissue Type -Structure Exposed -Texture (Bren-wound Skin Appearance) Assessed,Callus ,Scarring -Moisture (Bren-wound Skin Appearance) Assessed,Dry/ Scaly -Color (Bren-wound Skin Appearance) No Abnormality, Assessed -Temperature (Bren-wound Skin No Abnormality Appearance) (Pt Warm) -Tenderness on Palpation (Bren-wound No Skin Appearance) -Ulcer Cleansing Rinsed/ Irrigated with Saline -Foul Odor after Cleansing No -Anesthetic Used 4% Lidocaine Solution Lower Limb Edema Present Right Calf (cm) Right Ankle (cm) Left Calf (cm) Left Ankle (cm) WC - Nurse 2 - General Ulcer CM Notes Start: 08/03/21 10:13 Freq: Status: Active Protocol: Activity Type Activity Date Activity User E-Sign Co-Sign Detail Recorded Client Recorded Date Recorded By Document 08/03/21 13:32 PL [id number] 08/03/21 13:34 PL Document 08/10/21 10:51 JF [id number] 08/10/21 11:11 JF Edit Result 08/10/21 10:51 JF (1) [id number] 08/14/21 09:00 PL Document 08/17/21 14:05 PL [id number] 08/17/21 14:09 PL (1) 12-left 4th toe - Debridement - Subq, 1st 20sq cm Yes => No 08/03/21 08/10/21 08/17/21 13:32 10:51 14:05 Wound Center Nurse 2 12-left 4th toe -Time 10:55 11:08 -Correct Patient Yes Yes -Correct Side, Site, Position Yes Yes -Correct Procedure Yes Yes -Procedure Performed Yes Yes -Type of Procedure Debridement Debridement -Clinical Debridement Subcutaneous Subcutaneous -Tissue Removed Subcutaneous Subcutaneous -Post Debridement (cm) - Length 0.7 1.1 -Post Debridement (cm) - Width 1.0 1.4 -Post Debridement (cm) - Depth 1 0.1 -Total Square (Post) (cm) 0.70 1.54 -Area of Debridement (cm) - Length 0.7 1.1 -Area of Debridement (cm) - Width 1.0 1.4 -Total Square (Area) (cm) 0.70 1.54 -Tunneling No No -Undermining/Tunneling No No -Circular Undermining No No -Wound/Ulcer Outcome Not Healed Not Healed -Ulcer Cleansing Rinsed/ Rinsed/ Irrigated with Irrigated with Saline Saline -Foul Odor after Cleansing No No -Bioengineered Tissue No No -Bleeding Controlled with Pressure Pressure -Treatment Response Procedure Tolerated Well -Offloading No -Debridement - Subq, 1st 20sq cm No No #11 Left 3rd toe -Time 10:52 -Correct Patient Yes -Correct Side, Site, Position Yes -Correct Procedure Yes -Procedure Performed No Yes No -Type of Procedure Debridement -Clinical Debridement Subcutaneous -Tissue Removed Subcutaneous -Post Debridement (cm) - Length 0.3 -Post Debridement (cm) - Width 0.3 -Post Debridement (cm) - Depth 0.1 -Total Square (Post) (cm) 0.09 -Area of Debridement (cm) - Length 0.3 -Area of Debridement (cm) - Width 0.3 -Total Square (Area) (cm) 0.09 -Tunneling No -Undermining/Tunneling No -Circular Undermining No -Wound/Ulcer Outcome Not Healed Healed- Epithelialized -Ulcer Cleansing Rinsed/ Irrigated with Saline -Foul Odor after Cleansing No -Bioengineered Tissue No -Bleeding Controlled with Pressure -Treatment Response Procedure Tolerated Well -Offloading No -Debridement - Subq, 1st 20sq cm No #10 Left Lower rick -Time 10:53 11:08 -Correct Patient Yes Yes -Correct Side, Site, Position Yes Yes -Correct Procedure Yes Yes -Procedure Performed No Yes Yes -Type of Procedure Debridement Debridement -Clinical Debridement Subcutaneous Subcutaneous -Tissue Removed Subcutaneous Subcutaneous -Post Debridement (cm) - Length 5 5.0 -Post Debridement (cm) - Width 12.1 1.0 -Post Debridement (cm) - Depth 0.1 0.1 -Total Square (Post) (cm) 60.5 5.00 -Area of Debridement (cm) - Length 5 5.0 -Area of Debridement (cm) - Width 12.1 1.0 -Total Square (Area) (cm) 60.5 5.00 -Tunneling No No -Undermining/Tunneling No No -Circular Undermining No No -Wound/Ulcer Outcome Not Healed Not Healed -Ulcer Cleansing Rinsed/ Rinsed/ Irrigated with Irrigated with Saline Saline -Foul Odor after Cleansing No No -Bioengineered Tissue No No -Bleeding Controlled with Pressure Pressure -Treatment Response Procedure Procedure Tolerated Well Tolerated Well -Offloading No -Debridement - Subq, 1st 20sq cm Yes No -Debridement, SubQ, ea addt'l 20sq cm 3 or part thereof #9 Right Lower Extremity -Time 10:54 -Correct Patient No -Correct Side, Site, Position No -Correct Procedure No -Procedure Performed No No -Post Debridement (cm) - Length 0 -Post Debridement (cm) - Width 0 -Post Debridement (cm) - Depth 0 -Total Square (Post) (cm) 0 -Area of Debridement (cm) - Length 0 -Area of Debridement (cm) - Width 0 -Total Square (Area) (cm) 0 -Tunneling No -Undermining/Tunneling No -Circular Undermining No -Wound/Ulcer Outcome Healed- Epithelialized -Ulcer Cleansing Rinsed/ Irrigated with Saline -Foul Odor after Cleansing No -Bioengineered Tissue No -Bleeding Controlled with Pressure -Treatment Response Procedure Tolerated Well -Offloading No -Debridement - Subq, 1st 20sq cm No 6-left heel -Time 11:10 10:54 11:08 -Correct Patient Yes Yes Yes -Correct Side, Site, Position Yes Yes Yes -Correct Procedure Yes Yes Yes -Procedure Performed Yes Yes Yes -Type of Procedure Debridement Debridement Debridement -Clinical Debridement Subcutaneous Subcutaneous Subcutaneous -Tissue Removed Subcutaneous Subcutaneous Subcutaneous -Post Debridement (cm) - Length 2.4 2.1 2.0 -Post Debridement (cm) - Width 3.9 3.5 2.2 -Post Debridement (cm) - Depth 0.2 0.1 0.1 -Total Square (Post) (cm) 9.36 7.35 4.40 -Area of Debridement (cm) - Length 2.4 2.1 2.0 -Area of Debridement (cm) - Width 3.9 3.5 2.2 -Total Square (Area) (cm) 9.36 7.35 4.40 -Tunneling No No No -Undermining/Tunneling No No No -Circular Undermining No No No -Wound/Ulcer Outcome Not Healed Not Healed Not Healed -Ulcer Cleansing Rinsed/ Rinsed/ Rinsed/ Irrigated with Irrigated with Irrigated with Saline Saline Saline -Foul Odor after Cleansing No No No -Bioengineered Tissue No No No -Bleeding Controlled with Pressure Pressure Pressure -Treatment Response Procedure Procedure Procedure Tolerated Well Tolerated Well Tolerated Well -Offloading No -Debridement - Subq, 1st 20sq cm Yes No Yes Pain Scale: 0-10 Numeric Is Patient Pain Free? Yes Yes Yes WC - Nurse 3 - General Ulcer D/C NN Start: 08/03/21 10:13 Freq: Status: Active Protocol: Activity Type Activity Date Activity User E-Sign Co-Sign Detail Recorded Client Recorded Date Recorded By Document 08/03/21 12:26 AK [id number] 08/03/21 12:30 AK Document 08/10/21 11:24 AK [id number] 08/10/21 11:27 AK Document 08/17/21 12:14 AK [id number] 08/17/21 12:17 AK Document 08/24/21 11:45 MT [id number] 08/24/21 11:48 MT Edit Result 08/24/21 11:45 MT (1) [id number] 08/24/21 11:50 MT (1) 12-left 4th toe - Promogran Dominic Matter 2 => 3 #10 Left Lower rick - Aquacel AG 4x4 2 => 3 08/03/21 08/10/21 08/17/21 12:26 11:24 12:14 Wound Care Nurse 3 12-left 4th toe -Ulcer Cleansing Rinsed/ Rinsed/ Irrigated with Irrigated with Saline Saline -Foul Odor after Cleansing No No -Negative Pressure Wound Therapy N/A N/A -Primary Dressing Applied Aquacel AG 4x4, Aquacel AG 4x4, Promogran Promogran Dominic Matter -Primary Dressing Covered/Secured with Dry Gauze & Roll Gauze, Secured with Tape -Aquacel AG 4x4 1 2 -Promogran 1 -Promogran Dominic Matter 2 #11 Left 3rd toe -Ulcer Cleansing Rinsed/ Rinsed/ Rinsed/ Irrigated with Irrigated with Irrigated with Saline Saline Saline -Foul Odor after Cleansing No No No -Negative Pressure Wound Therapy N/A N/A N/A -Primary Dressing Applied Aquacel AG 4x4, Aquacel AG 4x4, Aquacel AG 4x4, Promogran Promogran Promogran Dominic Matter -Primary Dressing Covered/Secured with Dry Gauze & Dry Gauze & Roll Gauze, Roll Gauze, Secured with Secured with Tape Tape -Aquacel AG 4x4 1 0 0 -Optilok 6.5x10 1 -Promogran 0 0 -Promogran Dominic Matter 0 #10 Left Lower rick -Ulcer Cleansing Rinsed/ Rinsed/ Irrigated with Irrigated with Saline Saline -Foul Odor after Cleansing No No -Negative Pressure Wound Therapy N/A N/A -Primary Dressing Applied Aquacel AG 4x4, Aquacel AG 4x4, Promogran Promogran -Primary Dressing Covered/Secured with Dry Gauze & Roll Gauze, Secured with Tape -Aquacel AG 4x4 0 0 -Promogran 0 1 #9 Right Lower Extremity -Ulcer Cleansing Rinsed/ Irrigated with Saline -Foul Odor after Cleansing No -Negative Pressure Wound Therapy N/A -Primary Dressing Applied Aquacel AG 4x4, Promogran -Aquacel AG 4x4 1 -Promogran 0 6-left heel -Ulcer Cleansing Rinsed/ Rinsed/ Rinsed/ Irrigated with Irrigated with Irrigated with Saline Saline Saline -Foul Odor after Cleansing No No No -Negative Pressure Wound Therapy N/A N/A N/A -Primary Dressing Applied NonAdherent Aquacel AG 4x4 Aquacel AG 4x4, Contact Layer Promogran Dominic Matter -Other Dressing -Primary Dressing Covered/Secured with Dry Gauze & Roll Gauze, Secured with Tape -Aquacel AG 4x4 0 0 -Promogran 0 -Promogran Dominic Matter 0 Left -Tubular Bandage -Size of Tubigrip Used -Size E ($) Right -Lotion applied to leg before No No compression wrap -Multi-Layered Wrap Application Multi-Layer Comp - Right ($ ) -Compression Wrap Surepress ($) -Other x2 Pain Scale: 0-10 Numeric Is Patient Pain Free? Yes Yes Yes WC - Visit Discharge Discharge Condition Stable Stable Stable Ambulatory Status Walker Ambulatory, Wheelchair Walker Transportation Medication Reconcilliation completed & Yes Yes Yes provided to patient/care provider Clinical Summary of Care Provided Yes Yes Yes 08/24/21 11:45 Wound Care Nurse 3 12-left 4th toe -Ulcer Cleansing -Foul Odor after Cleansing -Negative Pressure Wound Therapy -Primary Dressing Applied Promogran Dominic Matter -Primary Dressing Covered/Secured with Dry Gauze, Secured with Tape -Aquacel AG 4x4 -Promogran -Promogran Dominic Matter 3 #11 Left 3rd toe -Ulcer Cleansing -Foul Odor after Cleansing -Negative Pressure Wound Therapy -Primary Dressing Applied -Primary Dressing Covered/Secured with -Aquacel AG 4x4 -Optilok 6.5x10 -Promogran -Promogran Dominic Matter #10 Left Lower rick -Ulcer Cleansing Rinsed/ Irrigated with Saline -Foul Odor after Cleansing -Negative Pressure Wound Therapy -Primary Dressing Applied Aquacel AG 4x4 -Primary Dressing Covered/Secured with Dry Gauze & Roll Gauze, Secured with Tape -Aquacel AG 4x4 3 -Promogran #9 Right Lower Extremity -Ulcer Cleansing -Foul Odor after Cleansing -Negative Pressure Wound Therapy -Primary Dressing Applied -Aquacel AG 4x4 -Promogran 6-left heel -Ulcer Cleansing Rinsed/ Irrigated with Saline -Foul Odor after Cleansing -Negative Pressure Wound Therapy -Primary Dressing Applied -Other Dressing dominic,silver -Primary Dressing Covered/Secured with -Aquacel AG 4x4 -Promogran -Promogran Dominic Matter Left -Tubular Bandage Double Layer -Size of Tubigrip Used Size E -Size E ($) 2 Right -Lotion applied to leg before compression wrap -Multi-Layered Wrap Application -Compression Wrap Surepress ($) -Other Pain Scale: 0-10 Numeric Is Patient Pain Free? Yes WC - Visit Discharge Discharge Condition Stable Ambulatory Status Ambulatory Transportation Private Auto Medication Reconcilliation completed & No provided to patient/care provider Clinical Summary of Care Provided Yes Additional Wound Wound debrided: Dorsal fourth digit Laterality: Left Wound Grade/Stage: Glasgow stage I Type of Debridement: Excisional debridement Anesthesia Used: 5% Lidocaine Gel Depth: in the subcutaneous layer Percentage of wound debrided: 100 Instrument Used: 3mm curette Tissue Removed: Fibrous, devitalized subcutaneous, biofilm, slough Severity: Fat Layer Exposed Amount of bleeding with debridement: Mild Bleeding Controlled with: Compression and gauze Patient tolerated procedure: Patient tolerated procedure well Additional Wound Wound debrided: Left lower extremity circumferential Laterality: Left Wound Grade/Stage: Glasgow stage I Type of Debridement: Excisional debridement Anesthesia Used: 5% Lidocaine Gel Depth: Down to and including healthy tissue and in the subcutaneous layer Percentage of wound debrided: 100 Instrument Used: 3mm curette Tissue Removed: Fibrous, devitalized subcutaneous, biofilm, slough Severity: Fat Layer Exposed Amount of bleeding with debridement: Mild Bleeding Controlled with: Compression and gauze Patient tolerated procedure: Patient tolerated procedure well Assessment/Plan Assessment/Plan (1) Pressure ulcer of left heel, stage 2: CODE(S): L89.622 - Pressure ulcer of left heel, stage 2 (2) Chronic kidney disease (CKD) stage G3a/A2, moderately decreased glomerular filtration rate (GFR) between 45-59 mL/min/1.73 square meter and albuminuria creatinine ratio between 30-299 mg/g: CODE(S): N18.31 - Chronic kidney disease, stage 3a (3) Pain in left foot: CODE(S): M79.672 - Pain in left foot (4) Type II diabetes mellitus: CODE(S): E11.9 - Type 2 diabetes mellitus without complications QUALIFIERS: Diabetes mellitus moth exterminator insulin use: unspecified senior care insulin use status Diabetes mellitus complication status: with neurologic complications Diabetes mellitus complication detail: with polyneuropathy Qualified Code(s): E11.42 - Type 2 diabetes mellitus with diabetic polyneuropathy PLAN: This is a 60-year-old female presenting to the wound care center today with stage II pressure ulcer of the left heel. She has history of left heel ulceration with osteomyelitis back in [address] Brown. Following replacement of her hip in January 2021 she subsequently reopened her left plantar heel secondary to placing more pressure at this limb site during her physical therapy and recovery process. Patient seen and evaluated. Ulceration to the left plantar heel demonstrates a pink wound base with scant mixed fibrotic tissue throughout the wound bed with continued closure of the ulcerative site with a new skin formation. Ulceration site demonstrates no signs of infection. Wound margins demonstrate scant yellow crusting and hyperkeratosis. Ulceration site was sharply debrided as stated in the clinical panel above. This was tolerated well. She has multiple wounds secondary to blister formations to the left extremity secondary to edema. There is new blister formations today to medial, lateral, and posterior left leg, these were drained and de-roofed. Right leg ulceration sites have healed and remain closed. The blister sites were dressed with Adaptic, Aquacel Ag, and supersorb. Right lower extremity dressed with double Tubigrip. Left leg dressed with compression wrap. I discussed with her again further controlling of her edema by elevation of her legs and compliance with her compression dressings. Ulceration site left heel dressed with Dominic, Aquacel Ag and dry sterile dressing. Compression wrap applied to the left lower extremity to aid in control of edema. Dressings to be changed daily. She is to continue to offload the left heel. She continues to demonstrate progression in healing status, and her heel ulceration is nearing closure. Visiting nursing to continue to assist with her dressing changes. Recommend continued visiting nursing twice a week. I discussed with her localized signs of infection. She is to observe for any erythema or redness moving up the leg, malodor to the ulceration site, purulent drainage from the ulceration site, increased pain to the left heel, or if she experiences any nausea, vomiting, fever, chills or other constitutional symptoms that these are signs of a progressing infection and she needs to report to the ED. She voices understanding of this. I reviewed and discussed her case today. Debridement was performed today as noted in the clinical panel to all of the ulcer sites. The following work up and care recommendations were made: Dressing: Dominic and Aquacel Ag-left heel; Adaptic to blister sites with Aquacel Ag and Suprasorb, left leg Compression wrap; right lower extremity double Tubigrip Wash: Soap and water to left heel Tissue growth optimization: Dominic Offload: Offloading surgical shoe with heel cut out Vascular: Palpable pedal pulses Edema: Elevation of lower extremities and Compression wrap left lower extremity. Double Tubigrip right lower extremity Infection: No localized signs of infection Pain: Patient may take [id number] Tylenol extra strength for pain control Host factors: Diabetes mellitus type 2, history of osteomyelitis left heel I answered all the patient's questions. To return to the wound healing center in 1 week or call sooner if the patient has any questions or concerns. Note: [employer] speech recognition operations officer trust department software was used to create portions of this document. Sound-alike and misspelled words, as well as other operations officer trust department errors may be contained in the documentation.
== END 2021-08-29 23:59 | disposition home or self-care (01) ==
LOC: WC 10:30
PROVIDERS: PCP Family Medicine; Visit Provider Student in an Organized Health Care Education/Training Program
DX: E11.621 Type 2 diabetes mellitus with foot ulcer (principal); L89.622 Pressure ulcer of left heel, stage 2; E11.65 Type 2 diabetes mellitus with hyperglycemia; E11.22 Type 2 diabetes mellitus with diabetic chronic kidney disease; E11.42 Type 2 diabetes mellitus with diabetic polyneuropathy; N18.31 Chronic kidney disease, stage 3a; Z96.649 Presence of unspecified artificial hip joint; M79.672 Pain in left foot
CPT/HCPCS: 11042; 11045; 29581

== ENCOUNTER 2021-09-28 09:15 | Outpatient (RCR) | payer MEDICARE, MEDICAID, SELFPAY ==
[2021-08-30 00:27] VITALS: BP 187/90; PULSE 71; RESP 16; TEMP 36.1
[2021-08-31 10:06] VITALS: BP 153/92; PULSE 93; TEMP 36.7
--- NOTE | 2021-08-31 17:03 | PN.PCM_ITS ---
History of Present Illness Date of Service: 08/31/21 Chief Complaint: left heel ulcer left ankle ulcer- healed History of Wound: In October 2019, patient had rubbing in shoes while shopping which led to a blister that developed into an ulceration. Patient was then seen by Dewey Amezquita.P.Usha. for wound care. Patient then became infected and was admitted to the hospital. Patient was noted to have OM on MRI. Patient wanted to avoid surgery so a long chain quiller tender course of appropriate IV antibiotics was the treatment chosen. Patient was also noted to have hyperglycemia and has worked with hospitalist and PCP to try to get better control. Blood sugar levels remain elevated. Patient also had LEAS obtained in the hospital which suggested patient had the proper blood flow to allow healing. Patient has since finished long chain quiller tender course of antibiotics. Patient has since been seen on a weekly basis in office with progression and regression of wound noted over the weeks. Patient has tried various dressing options including wet to dry and santyl. The most progress was noted with Santyl but patient ran out and was unable to refill due to insurance issues. During which time the wound regressed. She also has an offloading surgical shoe and offloading boot to relieve pressure. Patient care is henceforth being carried out at the wound care center. Patient not currently on any antibiotics. Patient has since began skin graft aplications significant improvement is been noted to her foot overall. Patient has finished epifix graft applications with some very small remaining wound noted to left heel. Patient has new wounds noted to bilateral third digits. The right 3rd digit wound has healed. Her left ankle ulcer remains healed Patient relates that ambulation is getting easier and she is rebuilding her strength slowly. She has not had any worsening of minor remaining heel wound since beginning ambulation again. 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 Her has been helping her change the dressings daily to the left heel. She presents to the wound care center today for continued care of her left heel ulceration. Subjective Subjective 60-year-old female presents for follow-up to the wound care center for a left heel ulceration and circumferential leg wounds bilateral. She denies any constitutional symptoms today. She has been performing her dressing changes daily. She has no further complaints today. Objective Data Objective Data Vital Signs: Vital Signs Temp Pulse Resp BP 98.1 F 93 16 153/92 H 08/31/21 10:06 08/31/21 10:06 08/30/21 00:27 08/31/21 10:06 Physical Exam Const alert, oriented x3 and no apparent distress General Appearance: cooperative and comfortable HEENT normocephalic Eyes General Eye: normal appearance of both eyes Neck General: normal visual inspection Lymph Lymphatic: no lymphadenopathy noted and no lymphedema noted Resp normal respiratory effort Cardio regular rate and regular rhythm Extremity normal capillary refill, no calf tenderness and no pedal edema Skin no rashes or lesions noted, skin turgor normal and no jaundice Wound Narrative: Right posterior leg abrasion, stable, no local signs of infection. Right anterior and anterior medial ulceration secondary to blister formation. No signs of infection. Left lower extremity heel decubitus ulceration. Ulcerative site demonstrates pink wound base with scant fibrotic tissue throughout the wound bed with serosanguineous drainage and no signs of infection. No palpable fluctuance noted to the left heel. Ulcerative site does have hyperkeratotic tissue at the wound margins. Ulcerative site demonstrates closure centrally with new skin formation. Left lower extremity circumferential wounds secondary to blister formation. Site is stable no signs of infection. Dorsal abrasions digits 3 and 4 left foot secondary to previous blister formation. There is wounds of digit 3 and 4 of the right foot secondary to previous hemorrhagic blister formation. Sites demonstrate no signs of infection. Neuro oriented x3 and moves all extremities Motor Exam: strength 5/5 throughout Debridement Note Debridement Note Wound debrided: Left heel decubitus ulceration Laterality: Left Wound Grade/Stage: Glasgow stage II Type of Debridement: Excisional debridement Anesthesia Used: 5% Lidocaine Gel Depth: in the subcutaneous layer Percentage of wound debrided: 100 Instrument Used: 3mm curette Tissue Removed: Fibrous, devitalized subcutaneous, biofilm, slough Severity: Fat Layer Exposed Bleeding Controlled with: Compression and gauze Patient tolerated procedure: Patient tolerated procedure well Post-Debridement Measurements and Additional Note: Post-Debridement Measurements/Treatment WC - Nurse 1 - General Ulcer Assessment Start: 08/31/21 10:05 Freq: Status: Active Protocol: MOOK Activity Type Activity Date Activity User E-Sign Co-Sign Detail Recorded Client Recorded Date Recorded By Document 08/31/21 10:06 ND [id number] 08/31/21 10:30 ND 08/31/21 10:06 - Today's Visit Information Type of service Follow-up Visit (Physician/[facility] OR LIFT OPERATOR ) Arrival Mode Ambulatory, Walker Patient Identification Verified (Name & Yes ) Patient Requires Transmission-Based No Precautions Safety Precautions Fall Prevention Vital Signs Temperature (97.8 F-99.1 F) 98.1 F Temperature Source Temporal Pulse Rate (60-100) 93 Pulse Location Monitor Blood Pressure (90/60-120/80) 153/92 H Blood Pressure Mean (mm Hg) 112 Source Monitor History Since Last Visit- (Skip if this is Patient's initial visit) Have you changed medications since your No last visit? Any new allergies or adverse reactions No Had a fall/change in ADL's that may No increase risk of falls Signs or symptoms of abuse and/or No neglect since last visit Have you been in the hospital since your No last visit? Has dressing in place as prescribed Yes Has compression in place as prescribed Yes Has offloadiing in place as prescribed N/A Experienced any changes in pain level or No management Left Footwear Regular Shoe Right Footwear Regular Shoe Pain Scale: 0-10 Numeric Is Patient Pain Free? Yes - Nurse 1 - General Ulcer Measurement Start: 08/31/21 10:05 Freq: Status: Active Protocol: Activity Type Activity Date Activity User E-Sign Co-Sign Detail Recorded Client Recorded Date Recorded By Document 08/31/21 10:06 DONIAT [id number] 08/31/21 10:30 ND 08/31/21 10:06 Wound Center Nurse 1 12-left 4th toe -Combined with other wound No -Current Size (cm) - Length 0.1 -Current Size (cm) - Width 0.1 -Current Size (cm) - Depth 0.1 -Total Square Cm 0.01 -Date of Last Picture (Recall this 08/31/21 field) -Photo Taken Yes -Epithelialization None Present -Tunneling No -Undermining/Tunneling No -Circular Undermining No -Change in Wound Grade/Stage No -Exudate Amt None Present -Wound Margin Flat & Intact -Granulation Amt None Present (0 %) -Granulation Quality N/A -Slough/Fibrin No -Necrosis Amt None Present (0 %) -Structure Exposed N/A -Texture (Bren-wound Skin Appearance) Assessed,Callus -Moisture (Bren-wound Skin Appearance) Assessed,Dry/ Scaly -Color (Bren-wound Skin Appearance) No Abnormality, Assessed -Temperature (Bren-wound Skin No Abnormality Appearance) (Pt Warm) -Tenderness on Palpation (Bren-wound No Skin Appearance) -Ulcer Cleansing Soap and Water -Foul Odor after Cleansing No -Anesthetic Used 4% Lidocaine Solution #10 Left Lower rick -Combined with other wound No -Current Size (cm) - Length 0.1 -Current Size (cm) - Width 0.1 -Current Size (cm) - Depth 0.1 -Total Square Cm 0.01 -Date of Last Picture (Recall this 08/31/21 field) -Photo Taken Yes -Epithelialization None Present -Tunneling No -Undermining/Tunneling No -Circular Undermining No -Exudate Amt Small -Exudate Type Sanguineous -Granulation Amt None Present (0 %) -Granulation Quality N/A -Slough/Fibrin No -Necrosis Amt None Present (0 %) -Structure Exposed N/A -Texture (Bren-wound Skin Appearance) No Abnormality, Assessed -Moisture (Bren-wound Skin Appearance) No Abnormality, Assessed -Color (Bren-wound Skin Appearance) No Abnormality, Assessed -Temperature (Bren-wound Skin No Abnormality Appearance) (Pt Warm) -Tenderness on Palpation (Bren-wound No Skin Appearance) -Ulcer Cleansing Soap and Water -Foul Odor after Cleansing No -Anesthetic Used 4% Lidocaine Solution 6-left heel -Combined with other wound No -Current Size (cm) - Length 0.5 -Current Size (cm) - Width 0.6 -Current Size (cm) - Depth 0.2 -Total Square Cm 0.30 -Date of Last Picture (Recall this 08/31/21 field) -Photo Taken Yes -Tunneling No -Undermining/Tunneling No -Circular Undermining No -Exudate Amt Medium -Exudate Type Serosanguineous -Wound Margin Thickened & Rolled Under -Granulation Amt Large (67-100%) -Granulation Quality Red -Slough/Fibrin No -Necrosis Amt None Present (0 %) -Structure Exposed N/A -Texture (Bren-wound Skin Appearance) Assessed,Callus -Moisture (Bren-wound Skin Appearance) No Abnormality, Assessed -Color (Bren-wound Skin Appearance) No Abnormality, Assessed -Temperature (Bren-wound Skin No Abnormality Appearance) (Pt Warm) -Tenderness on Palpation (Bren-wound No Skin Appearance) -Ulcer Cleansing Soap and Water -Foul Odor after Cleansing No -Anesthetic Used 4% Lidocaine Solution Right Calf (cm) 38 Right Ankle (cm) 23 Left Calf (cm) 36 Left Ankle (cm) 23 WC - Nurse 2 - General Ulcer CM Notes Start: 08/31/21 10:05 Freq: Status: Active Protocol: Activity Type Activity Date Activity User E-Sign Co-Sign Detail Recorded Client Recorded Date Recorded By Document 08/31/21 14:40 PL [id number] 08/31/21 14:43 PL 08/31/21 14:40 Wound Center Nurse 2 12-left 4th toe -Time 10:30 -Correct Patient Yes -Correct Side, Site, Position Yes -Correct Procedure Yes -Procedure Performed Yes -Type of Procedure Debridement -Clinical Debridement Subcutaneous -Tissue Removed Subcutaneous -Post Debridement (cm) - Length 0.1 -Post Debridement (cm) - Width 0.1 -Post Debridement (cm) - Depth 0.1 -Total Square (Post) (cm) 0.01 -Area of Debridement (cm) - Length 0.1 -Area of Debridement (cm) - Width 0.1 -Total Square (Area) (cm) 0.01 -Tunneling No -Undermining/Tunneling No -Circular Undermining No -Wound/Ulcer Outcome Not Healed -Ulcer Cleansing Rinsed/ Irrigated with Saline -Foul Odor after Cleansing No -Bioengineered Tissue No -Bleeding Controlled with Pressure -Treatment Response Procedure Tolerated Well -Debridement - Subq, 1st 20sq cm No #10 Left Lower rick -Time 10:30 -Correct Patient Yes -Correct Side, Site, Position Yes -Correct Procedure Yes -Procedure Performed Yes -Type of Procedure Debridement -Clinical Debridement Subcutaneous -Tissue Removed Subcutaneous -Post Debridement (cm) - Length 0.1 -Post Debridement (cm) - Width 0.1 -Post Debridement (cm) - Depth 0.1 -Total Square (Post) (cm) 0.01 -Area of Debridement (cm) - Length 0.1 -Area of Debridement (cm) - Width 0.1 -Total Square (Area) (cm) 0.01 -Tunneling No -Undermining/Tunneling No -Circular Undermining No -Wound/Ulcer Outcome Not Healed -Ulcer Cleansing Rinsed/ Irrigated with Saline -Foul Odor after Cleansing No -Bioengineered Tissue No -Bleeding Controlled with Pressure -Treatment Response Procedure Tolerated Well -Debridement - Subq, 1st 20sq cm Yes 6-left heel -Time 10:30 -Correct Patient Yes -Correct Side, Site, Position Yes -Correct Procedure Yes -Procedure Performed Yes -Type of Procedure Debridement -Clinical Debridement Subcutaneous -Tissue Removed Subcutaneous -Post Debridement (cm) - Length 0.5 -Post Debridement (cm) - Width 0.6 -Post Debridement (cm) - Depth 0.2 -Total Square (Post) (cm) 0.30 -Area of Debridement (cm) - Length 0.5 -Area of Debridement (cm) - Width 0.6 -Total Square (Area) (cm) 0.30 -Tunneling No -Undermining/Tunneling No -Circular Undermining No -Wound/Ulcer Outcome Not Healed -Ulcer Cleansing Rinsed/ Irrigated with Saline -Foul Odor after Cleansing No -Bioengineered Tissue No -Bleeding Controlled with Pressure -Treatment Response Procedure Tolerated Well -Debridement - Subq, 1st 20sq cm No Pain Scale: 0-10 Numeric Is Patient Pain Free? Yes WC - Nurse 3 - General Ulcer D/C NN Start: 08/31/21 10:05 Freq: Status: Active Protocol: Activity Type Activity Date Activity User E-Sign Co-Sign Detail Recorded Client Recorded Date Recorded By Document 08/31/21 12:20 DONITA [id number] 08/31/21 12:22 AK Document 08/31/21 12:22 AK [id number] 08/31/21 12:23 AK 08/31/21 08/31/21 12:20 12:22 Wound Care Nurse 3 12-left 4th toe -Ulcer Cleansing Rinsed/ Irrigated with Saline -Foul Odor after Cleansing No -Negative Pressure Wound Therapy N/A -Primary Dressing Applied Aquacel AG 4x4, Promogran Samantha Matter -Primary Dressing Covered/Secured with Dry Gauze & Roll Gauze, Secured with Tape -Aquacel AG 4x4 1 -Promogran Samantha Matter 1 #10 Left Lower rick -Ulcer Cleansing Rinsed/ Irrigated with Saline -Foul Odor after Cleansing No -Negative Pressure Wound Therapy N/A -Other Dressing ABD -Primary Dressing Covered/Secured with Dry Gauze & Roll Gauze, Secured with Tape 6-left heel -Ulcer Cleansing Rinsed/ Irrigated with Saline -Foul Odor after Cleansing No -Negative Pressure Wound Therapy N/A -Primary Dressing Applied Aquacel AG 4x4, Promogran Samantha Matter -Primary Dressing Covered/Secured with Dry Gauze & Roll Gauze, Secured with Tape -Aquacel AG 4x4 0 -Promogran Samantha Matter 0 Right -Tubular Bandage Double Layer -Size of Tubigrip Used Size E -Size E ($) 2 Left -Lotion applied to leg before No compression wrap -Compression Wrap Surepress ($) Pain Scale: 0-10 Numeric Is Patient Pain Free? Yes Yes WC - Visit Discharge Discharge Condition Stable Ambulatory Status Ambulatory, Walker Medication Reconcilliation completed & Yes provided to patient/care provider Clinical Summary of Care Provided Yes Additional Wound Wound debrided: Dorsal fourth digit Laterality: Left Wound Grade/Stage: Glasgow stage I Type of Debridement: Excisional debridement Anesthesia Used: 5% Lidocaine Gel Depth: Down to and including healthy tissue and in the subcutaneous layer Percentage of wound debrided: 100 Instrument Used: 3mm curette Tissue Removed: Fibrous, devitalized subcutaneous, biofilm, slough Severity: Fat Layer Exposed Amount of bleeding with debridement: Mild Bleeding Controlled with: Compression and gauze Patient tolerated procedure: Patient tolerated procedure well Assessment/Plan Assessment/Plan (1) Pressure ulcer of left heel, stage 2: CODE(S): L89.622 - Pressure ulcer of left heel, stage 2 (2) Chronic kidney disease (CKD) stage G3a/A2, moderately decreased glomerular filtration rate (GFR) between 45-59 mL/min/1.73 square meter and albuminuria creatinine ratio between 30-299 mg/g: CODE(S): N18.31 - Chronic kidney disease, stage 3a (3) Pain in left foot: CODE(S): M79.672 - Pain in left foot (4) Type II diabetes mellitus: CODE(S): E11.9 - Type 2 diabetes mellitus without complications QUALIFIERS: Diabetes mellitus complication detail: with polyneuropathy Diabetes mellitus complication status: with neurologic complications Diabetes mellitus long chain quiller tender insulin use: unspecified mcc insulin use status Qualified Code(s): E11.42 - Type 2 diabetes mellitus with diabetic polyneuropathy (5) Bilateral edema of lower extremity: CODE(S): R60.0 - Localized edema PLAN: This is a 60-year-old female presenting to the wound care center today with stage II pressure ulcer of the left heel. She has history of left heel ulceration with osteomyelitis back in [address] Brown. Following replacement of her hip in January 2021 she subsequently reopened her left plantar heel secondary to placing more pressure at this limb site during her physical therapy and recovery process. Patient seen and evaluated. Ulceration to the left plantar heel demonstrates a pink wound base with scant mixed fibrotic tissue throughout the wound bed with continued closure of the ulcerative site with a new skin formation. Ulceration site demonstrates no signs of infection. Wound margins demonstrate scant yellow crusting and hyperkeratosis. Ulceration site was sharply debrided as stated in the clinical panel above. This was tolerated well. She has multiple wounds secondary to blister formations to the left extremity secondary to edema. These are healing well and are currently stable with no signs of infection. Right leg ulceration sites have healed and remain closed. The blister sites were dressed with Adaptic, Aquacel Ag, and supersorb. Right lower extremity dressed with double Tubigrip. Left leg dressed with compression wrap. I discussed elevating her legs to continue to aid in edema reduction and remaining compliant with her compression dressings. Ulceration site left heel dressed with Samantha, Aquacel Ag and dry sterile dressing. Compression wrap applied to the left lower extremity to aid in control of edema. Dressings to be changed daily. She is to continue to offload the left heel. She continues to demonstrate progression in healing status, and her heel ulceration is nearing closure. Visiting nursing to continue to assist with her dressing changes twice a week. I discussed with her localized signs of infection. She is to observe for any erythema or redness moving up the leg, malodor to the ulceration site, purulent drainage from the ulceration site, increased pain to the left heel, or if she experiences any nausea, vomiting, fever, chills or other constitutional symptoms that these are signs of a progressing infection and she needs to report to the ED. She voices understanding of this. I reviewed and discussed her case today. Debridement was performed today as not ed in the clinical panel to all of the ulcer sites. The following work up and care recommendations were made: Dressing: Samantha and Aquacel Ag-left heel; Adaptic to blister sites with Aquacel Ag and Suprasorb, left leg Compression wrap; right lower extremity double Tubigrip Wash: Soap and water to left heel Tissue growth optimization: Samantha Offload: Offloading surgical shoe with heel cut out Vascular: Palpable pedal pulses Edema: Elevation of lower extremities and Compression wrap left lower extremity. Double Tubigrip right lower extremity Infection: No localized signs of infection Pain: Patient may take [id number] Tylenol extra strength for pain control Host factors: Diabetes mellitus type 2, history of osteomyelitis left heel I answered all the patient's questions. To return to the wound healing center in 1 week or call sooner if the patient has any questions or concerns. Note: [employer] speech recognition flatwork assembler software was used to create portions of this document. Sound-alike and misspelled words, as well as other flatwork assembler errors may be contained in the documentation.
[2021-09-07 10:58] VITALS: BP 139/73; PULSE 91; TEMP 36.3
--- NOTE | 2021-09-07 15:05 | PCM.WC.PN ---
History of Present Illness Date of Service: 09/07/21 Chief Complaint: left heel ulcer left ankle ulcer- healed History of Wound: In October 2019, patient had rubbing in shoes while shopping which led to a blister that developed into an ulceration. Patient was then seen by Dewey Amezquita.P.M. for wound care. Patient then became infected and was admitted to the hospital. Patient was noted to have OM on MRI. Patient wanted to avoid surgery so a ocean transportation intermediary course of appropriate IV antibiotics was the treatment chosen. Patient was also noted to have hyperglycemia and has worked with hospitalist and PCP to try to get better control. Blood sugar levels remain elevated. Patient also had LEAS obtained in the hospital which suggested patient had the proper blood flow to allow healing. Patient has since finished ocean transportation intermediary course of antibiotics. Patient has since been seen on a weekly basis in office with progression and regression of wound noted over the weeks. Patient has tried various dressing options including wet to dry and santyl. The most progress was noted with Santyl but patient ran out and was unable to refill due to insurance issues. During which time the wound regressed. She also has an offloading surgical shoe and offloading boot to relieve pressure. Patient care is henceforth being carried out at the wound care center. Patient not currently on any antibiotics. Patient has since began skin graft aplications significant improvement is been noted to her foot overall. Patient has finished epifix graft applications with some very small remaining wound noted to left heel. Patient has new wounds noted to bilateral third digits. The right 3rd digit wound has healed. Her left ankle ulcer remains healed Patient relates that ambulation is getting easier and she is rebuilding her strength slowly. She has not had any worsening of minor remaining heel wound since beginning ambulation again. 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 Her has been helping her change the dressings daily to the left heel. She presents to the wound care center today for continued care of her left heel ulceration. Subjective Subjective 60-year-old female presents for follow-up to the wound care center for a left heel ulceration and circumferential leg wounds bilateral. She denies any constitutional symptoms today. She has been performing her dressing changes daily. She states visiting nursing has been aiding in her dressing changes but the dressing came off and she was not able to reapply so her leg swelled with new blisters. She has no further complaints today. Objective Data Objective Data Vital Signs: Vital Signs Temp Pulse Resp BP 97.4 F L 91 16 139/73 H 09/07/21 10:58 09/07/21 10:58 08/30/21 00:27 09/07/21 10:58 Physical Exam Const alert, oriented x3 and no apparent distress General Appearance: cooperative and comfortable HEENT normocephalic Eyes General Eye: normal appearance of both eyes Neck General: normal visual inspection Lymph Lymphatic: no lymphadenopathy noted and no lymphedema noted Resp normal respiratory effort Cardio regular rate and regular rhythm Extremity normal capillary refill, no calf tenderness and no pedal edema Skin no rashes or lesions noted, skin turgor normal and no jaundice Wound Narrative: Right posterior leg abrasion, stable, no local signs of infection. Right anterior and anterior medial ulceration secondary to blister formation. No signs of infection. Left lower extremity heel decubitus ulceration. Ulcerative site demonstrates pink wound base with scant fibrotic tissue throughout the wound bed with serosanguineous drainage and no signs of infection. No palpable fluctuance noted to the left heel. Ulcerative site does have hyperkeratotic tissue at the wound margins. Ulcerative site demonstrates closure centrally with new skin formation. Left lower extremity circumferential wounds secondary to blister formation. Site is stable no signs of infection. Dorsal abrasions digits 3 and 4 left foot secondary to previous blister formation. There is wounds of digit 3 and 4 of the right foot secondary to previous hemorrhagic blister formation. Sites demonstrate no signs of infection. Neuro oriented x3 and moves all extremities Motor Exam: strength 5/5 throughout Debridement Note Debridement Note Wound debrided: Left heel Laterality: Left Wound Grade/Stage: Glasgow stage II Type of Debridement: Excisional debridement Anesthesia Used: 5% Lidocaine Gel Depth: Down to and including healthy tissue and in the subcutaneous layer Percentage of wound debrided: 100 Instrument Used: 3mm curette and #15 blade Tissue Removed: Fibrous, devitalized subcutaneous, biofilm, slough Severity: Fat Layer Exposed Amount of bleeding with debridement: Mild Bleeding Controlled with: Compression and gauze Patient tolerated procedure: Patient tolerated procedure well Post-Debridement Measurements and Additional Note: Post-Debridement Measurements/Treatment WC - Nurse 1 - General Ulcer Assessment Start: 08/31/21 10:05 Freq: Status: Active Protocol: MOOK Activity Type Activity Date Activity User E-Sign Co-Sign Detail Recorded Client Recorded Date Recorded By Document 08/31/21 10:06 DONITA [id number] 08/31/21 10:30 AK Document 09/07/21 10:58 KR [id number] 09/07/21 11:04 KR 08/31/21 09/07/21 10:06 10:58 - Today's Visit Information Type of service Follow-up Visit Follow-up Visit (Physician/ENTRY LEVEL INSTALLATION TECHNICIAN (Physician/ENTRY LEVEL INSTALLATION TECHNICIAN ) ) Arrival Mode Ambulatory, Ambulatory, Walker Walker Patient Identification Verified (Name & Yes Yes ) Patient Requires Transmission-Based No Precautions Safety Precautions Fall Prevention Vital Signs Temperature (97.8 F-99.1 F) 98.1 F 97.4 F L Temperature Source Temporal Temporal Pulse Rate (60-100) 93 91 Pulse Location Monitor Monitor Blood Pressure (90/60-120/80) 153/92 H 139/73 H Blood Pressure Mean (mm Hg) 112 95 Source Monitor Monitor Position Sitting Blood Pressure Location Right Arm History Since Last Visit- (Skip if this is Patient's initial visit) Have you changed medications since your No No last visit? Any new allergies or adverse reactions No No Had a fall/change in ADL's that may No No increase risk of falls Signs or symptoms of abuse and/or No No neglect since last visit Have you been in the hospital since your No No last visit? Has dressing in place as prescribed Yes Yes Has compression in place as prescribed Yes Yes Has offloadiing in place as prescribed N/A N/A Experienced any changes in pain level or No No management Left Footwear Regular Shoe Regular Shoe Right Footwear Regular Shoe Regular Shoe Pain Scale: 0-10 Numeric Is Patient Pain Free? Yes Yes - Nurse 1 - General Ulcer Measurement Start: 08/31/21 10:05 Freq: Status: Active Protocol: Activity Type Activity Date Activity User E-Sign Co-Sign Detail Recorded Client Recorded Date Recorded By Document 08/31/21 10:06 DONITA [id number] 08/31/21 10:30 AK Document 09/07/21 10:58 ELIO [id number] 09/07/21 11:04 KR 08/31/21 09/07/21 10:06 10:58 Wound Center Nurse 1 #13 R Lower extremity cir -Current Size (cm) - Length 6 -Current Size (cm) - Width 21 -Current Size (cm) - Depth 0.1 -Total Square Cm 126 -Exudate Amt Large -Exudate Type Serosanguineous -Wound Margin Distinct, Outline Attached -Texture (Bren-wound Skin Appearance) Assessed, Scarring -Moisture (Bren-wound Skin Appearance) Assessed, Maceration -Color (Bren-wound Skin Appearance) No Abnormality, Assessed -Temperature (Bren-wound Skin No Abnormality Appearance) (Pt Warm) -Tenderness on Palpation (Bren-wound No Skin Appearance) -Ulcer Cleansing Soap and Water -Foul Odor after Cleansing No -Anesthetic Used 4% Lidocaine Solution 12-left 4th toe -Combined with other wound No -Current Size (cm) - Length 0.1 0.1 -Current Size (cm) - Width 0.1 0.1 -Current Size (cm) - Depth 0.1 0.1 -Total Square Cm 0.01 0.01 -Date of Last Picture (Recall this 08/31/21 field) -Photo Taken Yes -Epithelialization None Present -Tunneling No -Undermining/Tunneling No -Circular Undermining No -Change in Wound Grade/Stage No -Exudate Amt None Present None Present -Wound Margin Flat & Intact Distinct, Outline Attached -Granulation Amt None Present (0 None Present (0 %) %) -Granulation Quality N/A -Slough/Fibrin No -Necrosis Amt None Present (0 None Present (0 %) %) -Structure Exposed N/A -Texture (Bren-wound Skin Appearance) Assessed,Callus Assessed, Scarring -Moisture (Bren-wound Skin Appearance) Assessed,Dry/ No Abnormality, Scaly Assessed -Color (Bren-wound Skin Appearance) No Abnormality, No Abnormality, Assessed Assessed -Temperature (Bren-wound Skin No Abnormality No Abnormality Appearance) (Pt Warm) (Pt Warm) -Tenderness on Palpation (Bren-wound No No Skin Appearance) -Ulcer Cleansing Soap and Water Rinsed/ Irrigated with Saline -Foul Odor after Cleansing No No -Anesthetic Used 4% Lidocaine 4% Lidocaine Solution Solution #10 Left Lower rick -Combined with other wound No -Current Size (cm) - Length 0.1 0.1 -Current Size (cm) - Width 0.1 0.1 -Current Size (cm) - Depth 0.1 0.1 -Total Square Cm 0.01 0.01 -Date of Last Picture (Recall this 08/31/21 field) -Photo Taken Yes -Epithelialization None Present -Tunneling No -Undermining/Tunneling No -Circular Undermining No -Exudate Amt Small None Present -Exudate Type Sanguineous -Wound Margin Distinct, Outline Attached -Granulation Amt None Present (0 None Present (0 %) %) -Granulation Quality N/A -Slough/Fibrin No -Necrosis Amt None Present (0 None Present (0 %) %) -Structure Exposed N/A -Texture (Bren-wound Skin Appearance) No Abnormality, Assessed, Assessed Scarring -Moisture (Bren-wound Skin Appearance) No Abnormality, No Abnormality, Assessed Assessed -Color (Bren-wound Skin Appearance) No Abnormality, No Abnormality, Assessed Assessed -Temperature (Bren-wound Skin No Abnormality No Abnormality Appearance) (Pt Warm) (Pt Warm) -Tenderness on Palpation (Bren-wound No No Skin Appearance) -Ulcer Cleansing Soap and Water Rinsed/ Irrigated with Saline -Foul Odor after Cleansing No No -Anesthetic Used 4% Lidocaine 4% Lidocaine Solution Solution 6-left heel -Combined with other wound No -Current Size (cm) - Length 0.5 2.6 -Current Size (cm) - Width 0.6 1.5 -Current Size (cm) - Depth 0.2 0.1 -Total Square Cm 0.30 3.90 -Date of Last Picture (Recall this 08/31/21 field) -Photo Taken Yes -Tunneling No -Undermining/Tunneling No -Circular Undermining No -Exudate Amt Medium Small -Exudate Type Serosanguineous Serosanguineous -Wound Margin Thickened & Distinct, Rolled Under Outline Attached -Granulation Amt Large (67-100%) Medium (34-66%) -Granulation Quality Red [place] -Slough/Fibrin No -Necrosis Amt None Present (0 Medium (34-66%) %) -Necrotic Tissue Type Adherent Slough -Structure Exposed N/A -Texture (Bren-wound Skin Appearance) Assessed,Callus Assessed, Scarring -Moisture (Bren-wound Skin Appearance) No Abnormality, No Abnormality, Assessed Assessed -Color (Bren-wound Skin Appearance) No Abnormality, No Abnormality, Assessed Assessed -Temperature (Bren-wound Skin No Abnormality No Abnormality Appearance) (Pt Warm) (Pt Warm) -Tenderness on Palpation (Bren-wound No No Skin Appearance) -Ulcer Cleansing Soap and Water Rinsed/ Irrigated with Saline -Foul Odor after Cleansing No No -Anesthetic Used 4% Lidocaine 4% Lidocaine Solution Solution Right Calf (cm) 38 44.5 Right Ankle (cm) 23 29 Left Calf (cm) 36 41 Left Ankle (cm) 23 25 WC - Nurse 2 - General Ulcer CM Notes Start: 08/31/21 10:05 Freq: Status: Active Protocol: Activity Type Activity Date Activity User E-Sign Co-Sign Detail Recorded Client Recorded Date Recorded By Document 08/31/21 14:40 PL [id number] 08/31/21 14:43 PL Document 09/07/21 11:19 [id number] 09/07/21 11:40 JF 08/31/21 09/07/21 14:40 11:19 Wound Center Nurse 2 14 left medial heel -Time 11:32 -Correct Patient Yes -Correct Side, Site, Position Yes -Correct Procedure Yes -Procedure Performed Yes -Type of Procedure Debridement -Clinical Debridement Subcutaneous -Tissue Removed Subcutaneous -Post Debridement (cm) - Length 1.5 -Post Debridement (cm) - Width 2.0 -Post Debridement (cm) - Depth 0.1 -Total Square (Post) (cm) 3.00 -Area of Debridement (cm) - Length 1.5 -Area of Debridement (cm) - Width 2.0 -Total Square (Area) (cm) 3.00 -Tunneling No -Undermining/Tunneling No -Circular Undermining No -Wound/Ulcer Outcome Not Healed -Ulcer Cleansing Rinsed/ Irrigated with Saline -Foul Odor after Cleansing No -Bioengineered Tissue No -Bleeding Controlled with Pressure -Treatment Response Procedure Tolerated Well -Offloading No -Debridement - Subq, 1st 20sq cm No #13 R Lower extremity cir -Time 11:20 -Correct Patient Yes -Correct Side, Site, Position Yes -Correct Procedure Yes -Procedure Performed Yes -Type of Procedure Debridement -Clinical Debridement Subcutaneous -Tissue Removed Subcutaneous -Post Debridement (cm) - Length 6.1 -Post Debridement (cm) - Width 21 -Post Debridement (cm) - Depth 0.1 -Total Square (Post) (cm) 128.1 -Area of Debridement (cm) - Length 6.1 -Area of Debridement (cm) - Width 21 -Total Square (Area) (cm) 128.1 -Tunneling No -Undermining/Tunneling No -Circular Undermining No -Wound/Ulcer Outcome Not Healed -Ulcer Cleansing Rinsed/ Irrigated with Saline -Foul Odor after Cleansing No -Bioengineered Tissue No -Bleeding Controlled with Pressure -Treatment Response Procedure Tolerated Well -Offloading No -Debridement - Subq, 1st 20sq cm Yes -Debridement, SubQ, ea addt'l 20sq cm 6 or part thereof 12-left 4th toe -Time 10:30 -Correct Patient Yes No -Correct Side, Site, Position Yes No -Correct Procedure Yes No -Procedure Performed Yes No -Type of Procedure Debridement -Clinical Debridement Subcutaneous -Tissue Removed Subcutaneous -Post Debridement (cm) - Length 0.1 0 -Post Debridement (cm) - Width 0.1 0 -Post Debridement (cm) - Depth 0.1 0 -Total Square (Post) (cm) 0.01 0 -Area of Debridement (cm) - Length 0.1 0 -Area of Debridement (cm) - Width 0.1 0 -Total Square (Area) (cm) 0.01 0 -Tunneling No -Undermining/Tunneling No -Circular Undermining No -Wound/Ulcer Outcome Not Healed Healed- Epithelialized -Ulcer Cleansing Rinsed/ Irrigated with Saline -Foul Odor after Cleansing No -Bioengineered Tissue No -Bleeding Controlled with Pressure -Treatment Response Procedure Tolerated Well -Debridement - Subq, 1st 20sq cm No #10 Left Lower rick -Time 10:30 -Correct Patient Yes No -Correct Side, Site, Position Yes No -Correct Procedure Yes No -Procedure Performed Yes No -Type of Procedure Debridement -Clinical Debridement Subcutaneous -Tissue Removed Subcutaneous -Post Debridement (cm) - Length 0.1 0 -Post Debridement (cm) - Width 0.1 0 -Post Debridement (cm) - Depth 0.1 0 -Total Square (Post) (cm) 0.01 0 -Area of Debridement (cm) - Length 0.1 0 -Area of Debridement (cm) - Width 0.1 0 -Total Square (Area) (cm) 0.01 0 -Tunneling No -Undermining/Tunneling No -Circular Undermining No -Wound/Ulcer Outcome Not Healed Healed- Epithelialized -Ulcer Cleansing Rinsed/ Irrigated with Saline -Foul Odor after Cleansing No -Bioengineered Tissue No -Bleeding Controlled with Pressure -Treatment Response Procedure Tolerated Well -Debridement - Subq, 1st 20sq cm Yes 6-left heel -Time 10:30 11:25 -Correct Patient Yes Yes -Correct Side, Site, Position Yes Yes -Correct Procedure Yes Yes -Procedure Performed Yes Yes -Type of Procedure Debridement Debridement -Clinical Debridement Subcutaneous Subcutaneous -Tissue Removed Subcutaneous Subcutaneous -Post Debridement (cm) - Length 0.5 0.5 -Post Debridement (cm) - Width 0.6 0.4 -Post Debridement (cm) - Depth 0.2 0.1 -Total Square (Post) (cm) 0.30 0.20 -Area of Debridement (cm) - Length 0.5 0.5 -Area of Debridement (cm) - Width 0.6 0.4 -Total Square (Area) (cm) 0.30 0.20 -Tunneling No No -Undermining/Tunneling No No -Circular Undermining No No -Wound/Ulcer Outcome Not Healed Not Healed -Ulcer Cleansing Rinsed/ Rinsed/ Irrigated with Irrigated with Saline Saline -Foul Odor after Cleansing No No -Bioengineered Tissue No No -Bleeding Controlled with Pressure Pressure -Treatment Response Procedure Procedure Tolerated Well Tolerated Well -Offloading Yes -Type of Offloading Surgical Shoe -Debridement - Subq, 1st 20sq cm No No Pain Scale: 0-10 Numeric Is Patient Pain Free? Yes Yes WC - Nurse 3 - General Ulcer D/C NN Start: 08/31/21 10:05 Freq: Status: Active Protocol: Activity Type Activity Date Activity User E-Sign Co-Sign Detail Recorded Client Recorded Date Recorded By Document 08/31/21 12:20 SD [id number] 08/31/21 12:22 AK Document 08/31/21 12:22 AK [id number] 08/31/21 12:23 AK Document 09/07/21 12:15 KR [id number] 09/07/21 12:16 KR 08/31/21 08/31/21 09/07/21 12:20 12:22 12:15 Wound Care Nurse 3 14 left medial heel -Ulcer Cleansing Rinsed/ Irrigated with Saline -Primary Dressing Applied Aquacel AG 4x4, Promogran Samantha Matter -Other Dressing Abd -Primary Dressing Covered/Secured with Dry Gauze & Roll Gauze, Secured with Tape -Aquacel AG 4x4 1 -Promogran Samantha Matter 2 #13 R Lower extremity cir -Other Dressing abd pad -Primary Dressing Covered/Secured with Dry Gauze, Secured with Tape 12-left 4th toe -Ulcer Cleansing Rinsed/ Irrigated with Saline -Foul Odor after Cleansing No -Negative Pressure Wound Therapy N/A -Primary Dressing Applied Aquacel AG 4x4, Promogran Samantha Matter -Primary Dressing Covered/Secured with Dry Gauze & Roll Gauze, Secured with Tape -Aquacel AG 4x4 1 -Promogran Samantha Matter 1 #10 Left Lower rick -Ulcer Cleansing Rinsed/ Irrigated with Saline -Foul Odor after Cleansing No -Negative Pressure Wound Therapy N/A -Other Dressing ABD -Primary Dressing Covered/Secured with Dry Gauze & Roll Gauze, Secured with Tape 6-left heel -Ulcer Cleansing Rinsed/ Rinsed/ Irrigated with Irrigated with Saline Saline -Foul Odor after Cleansing No -Negative Pressure Wound Therapy N/A -Primary Dressing Applied Aquacel AG 4x4, Promogran Samantha Matter -Other Dressing abd pad -Primary Dressing Covered/Secured with Dry Gauze & Secured with Roll Gauze, Tape Secured with Tape -Aquacel AG 4x4 0 -Promogran Samantha Matter 0 Right -Tubular Bandage Double Layer -Size of Tubigrip Used Size E -Size E ($) 2 Left -Lotion applied to leg before No compression wrap -Compression Wrap Surepress ($) Pain Scale: 0-10 Numeric Is Patient Pain Free? Yes Yes Yes WC - Visit Discharge Discharge Condition Stable Stable Ambulatory Status Ambulatory, Walker Walker Medication Reconcilliation completed & Yes provided to patient/care provider Clinical Summary of Care Provided Yes Additional Wound Wound debrided: Right lower leg circumferential Laterality: Right Wound Grade/Stage: Glasgow stage I Type of Debridement: Excisional debridement Anesthesia Used: 5% Lidocaine Gel Depth: Down to and including healthy tissue and in the subcutaneous layer Percentage of wound debrided: 100 Instrument Used: 3mm curette Tissue Removed: Fibrous, devitalized subcutaneous, biofilm, slough Severity: Fat Layer Exposed Amount of bleeding with debridement: Mild Bleeding Controlled with: Compression and gauze Patient tolerated procedure: Patient tolerated procedure well Assessment/Plan Assessment/Plan (1) Pressure ulcer of left heel, stage 2: CODE(S): L89.622 - Pressure ulcer of left heel, stage 2 (2) Chronic kidney disease (CKD) stage G3a/A2, moderately decreased glomerular filtration rate (GFR) between 45-59 mL/min/1.73 square meter and albuminuria creatinine ratio between 30-299 mg/g: CODE(S): N18.31 - Chronic kidney disease, stage 3a (3) Pain in left foot: CODE(S): M79.672 - Pain in left foot (4) Type II diabetes mellitus: CODE(S): E11.9 - Type 2 diabetes mellitus without complications QUALIFIERS: Diabetes mellitus ocean transportation intermediary insulin use: unspecified alf insulin use status Diabetes mellitus complication status: with neurologic complications Diabetes mellitus complication detail: with polyneuropathy Qualified Code(s): E11.42 - Type 2 diabetes mellitus with diabetic polyneuropathy (5) Bilateral edema of lower extremity: CODE(S): R60.0 - Localized edema PLAN: This is a 60-year-old female presenting to the wound care center today with stage II pressure ulcer of the left heel. She has history of left heel ulceration with osteomyelitis back in [address] Brown. Following replacement of her hip in January 2021 she subsequently reopened her left plantar heel secondary to placing more pressure at this limb site during her physical therapy and recovery process. Patient seen and evaluated. Ulceration to the left plantar heel demonstrates a pink wound base with scant mixed fibrotic tissue throughout the wound bed with continued closure of the ulcerative site with a new skin formation. Ulceration site demonstrates no signs of infection. Wound margins demonstrate scant yellow crusting, maceration, and hyperkeratosis. Ulceration site was sharply debrided as stated in the clinical panel above. This was tolerated well. She has multiple wounds secondary to blister formations to the left extremity secondary to edema. These are healed today and are currently stable with no signs of infection. Right leg ulceration sites have reopened secondary to edema. The blister sites were dressed with Adaptic, Aquacel Ag, and supersorb. Left lower extremity dressed with SurePress compression wrap. Right leg dressed with SurePress compression wrap. I discussed elevating her legs to continue to aid in edema reduction and remaining compliant with her compression dressings. Ulceration site left heel dressed with Samantha, Aquacel Ag and dry sterile dressing. Compression wrap applied to the left lower extremity to aid in control of edema. Dressings to be changed daily. She is to continue to offload the left heel. She continues to demonstrate progression in healing status, and her heel ulceration is nearing closure. Visiting nursing has been placed on pause. She will return to the wound care center on Saturday for a dressing change to bilateral leg. I discussed with her localized signs of infection. She is to observe for any erythema or redness moving up the leg, malodor to the ulceration site, purulent drainage from the ulceration site, increased pain to the left heel, or if she experiences any nausea, vomiting, fever, chills or other constitutional symptoms that these are signs of a progressing infection and she needs to report to the ED. She voices understanding of this. The following work up and care recommendations were made: Dressing: Samantha and Aquacel Ag-left heel; Adaptic to blister sites with Aquacel Ag and Suprasorb, left leg SurePress compression wrap; right lower extremity SurePress compression wrap Wash: Soap and water to left heel and bilateral legs Tissue growth optimization: Samantha Offload: Offloading surgical shoe with heel cut out Vascular: Palpable pedal pulses Edema: Elevation of lower extremities and Compression wrap left lower extremity. Double Tubigrip right lower extremity Infection: No localized signs of infection Pain: Patient may take [id number] Tylenol extra strength for pain control Host factors: Diabetes mellitus type 2, history of osteomyelitis left heel I answered all the patient's questions. To return to the wound healing center in 1 week or call sooner if the patient has any questions or concerns. Note: [employer] speech recognition blast furnace tender software was used to create portions of this document. Sound-alike and misspelled words, as well as other blast furnace tender errors may be contained in the documentation.
[2021-09-11 15:20] VITALS: BP 142/68; PULSE 71; TEMP 36.6
[2021-09-14 09:00] VITALS: BP 132/74; PULSE 68; TEMP 36.7
--- NOTE | 2021-09-14 09:50 | PN.PCM_ITS ---
History of Present Illness Date of Service: 09/14/21 Chief Complaint: left heel ulcer left ankle ulcer- healed History of Wound: In October 2019, patient had rubbing in shoes while shopping which led to a blister that developed into an ulceration. Patient was then seen by Dewey Amezquita.P.Usha. for wound care. Patient then became infected and was admitted to the hospital. Patient was noted to have OM on MRI. Patient wanted to avoid surgery so a ad terminal makeup operator course of appropriate IV antibiotics was the treatment chosen. Patient was also noted to have hyperglycemia and has worked with hospitalist and PCP to try to get better control. Blood sugar levels remain elevated. Patient also had LEAS obtained in the hospital which suggested patient had the proper blood flow to allow healing. Patient has since finished ad terminal makeup operator course of antibiotics. Patient has since been seen on a weekly basis in office with progression and regression of wound noted over the weeks. Patient has tried various dressing options including wet to dry and santyl. The most progress was noted with Santyl but patient ran out and was unable to refill due to insurance issues. During which time the wound regressed. She also has an offloading surgical shoe and offloading boot to relieve pressure. Patient care is henceforth being carried out at the wound care center. Patient not currently on any antibiotics. Patient has since began skin graft aplications significant improvement is been noted to her foot overall. Patient has finished epifix graft applications with some very small remaining wound noted to left heel. Patient has new wounds noted to bilateral third digits. The right 3rd digit wound has healed. Her left ankle ulcer remains healed Patient relates that ambulation is getting easier and she is rebuilding her strength slowly. She has not had any worsening of minor remaining heel wound since beginning ambulation again. 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 Her has been helping her change the dressings daily to the left heel. She presents to the wound care center today for continued care of her left heel ulceration. Subjective Subjective 60-year-old female presents for follow-up to the wound care center for a left heel ulceration and circumferential leg wounds bilateral.? She denies any constitutional symptoms today. She has been performing her dressing changes daily.? She has been coming to the wound care center for nurse visits for a dressing change and thinks this is helping to decrease her swelling. She has no further complaints today. Objective Data Objective Data Vital Signs: Vital Signs Temp Pulse Resp BP 98.0 F 68 16 132/74 H 09/14/21 09:00 09/14/21 09:00 08/30/21 00:27 09/14/21 09:00 Physical Exam Const alert, oriented x3 and no apparent distress General Appearance: cooperative and comfortable HEENT normocephalic Eyes General Eye: normal appearance of both eyes Neck General: normal visual inspection Lymph Lymphatic: no lymphadenopathy noted and no lymphedema noted Resp normal respiratory effort Cardio regular rate and regular rhythm Extremity normal capillary refill, no calf tenderness and no pedal edema Skin no rashes or lesions noted, skin turgor normal and no jaundice Wound Narrative: Right posterior leg abrasion, stable, no local signs of infection. Right anterior and anterior medial ulceration secondary to blister formation. No signs of infection. Left lower extremity heel decubitus ulceration. Ulcerative site demonstrates pink wound base with scant fibrotic tissue throughout the wound bed with serosanguineous drainage and no signs of infection. No palpable fluctuance noted to the left heel. Ulcerative site does have hyperkeratotic tissue at the wound margins. Ulcerative site demonstrates closure centrally with new skin formation. Left lower extremity circumferential wounds secondary to blister formation. Site is stable no signs of infection. Dorsal abrasions digits 3 and 4 left foot secondary to previous blister formation. There is wounds of digit 3 and 4 of the right foot secondary to previous hemorrhagic blister formation. Sites demonstrate no signs of infection. Neuro oriented x3 and moves all extremities Motor Exam: strength 5/5 throughout Debridement Note Debridement Note Wound debrided: Left heel decubitus ulceration Laterality: Left Wound Grade/Stage: Glasgow stage II Type of Debridement: Excisional debridement Anesthesia Used: 5% Lidocaine Gel Depth: Down to and including healthy tissue and in the subcutaneous layer Percentage of wound debrided: 100 Instrument Used: 3mm curette and #10 blade Tissue Removed: Fibrous, devitalized subcutaneous, biofilm, slough Severity: Fat Layer Exposed Amount of bleeding with debridement: Mild Bleeding Controlled with: Compression and gauze Patient tolerated procedure: Patient tolerated procedure well Post-Debridement Measurements and Additional Note: Post-Debridement Measurements/Treatment WC - Nurse 1 - General Ulcer Assessment Start: 06/02/22 10:05 Freq: Status: Active Protocol: WC.LOWEXT Activity Type Activity Date Activity User E-sign Co-sign Detail Recorded Client Recorded Date Recorded By Document 08/31/21 10:06 DONITA [id number] 08/31/21 10:30 AK Document 09/07/21 10:58 KR [id number] 09/07/21 11:04 KR Document 09/11/21 15:20 AK [id number] 09/11/21 15:23 AK Document 09/14/21 09:00 KR [id number] 09/14/21 09:12 KR 08/31/21 09/07/21 09/11/21 10:06 10:58 15:20 - Today's Visit Information Type of service Follow-up Visit Follow-up Visit Nurse-only (Physician/ORTHOPEDIC SHOES SALESPERSON (Physician/ORTHOPEDIC SHOES SALESPERSON Visit ) ) Arrival Mode Ambulatory, Ambulatory, Ambulatory, Walker Walker Walker Patient Identification Verified (Name & Yes Yes Yes ) Patient Requires Transmission-Based No No Precautions Safety Precautions Fall Prevention Vital Signs Temperature (97.8 F-99.1 F) 98.1 F 97.4 F L 97.9 F Temperature Source Temporal Temporal Temporal Pulse Rate (60-100) 93 91 71 Pulse Location Monitor Monitor Monitor Blood Pressure (90/60-120/80) 153/92 H 139/73 H 142/68 H Blood Pressure Mean (mm Hg) 112 95 92 Source Monitor Monitor Monitor Position Sitting Blood Pressure Location Right Arm History Since Last Visit- (Skip if this is Patient's initial visit) Have you changed medications since your No No No last visit? Any new allergies or adverse reactions No No No Had a fall/change in ADL's that may No No No increase risk of falls Signs or symptoms of abuse and/or No No No neglect since last visit Have you been in the hospital since your No No No last visit? Has dressing in place as prescribed Yes Yes Yes Has compression in place as prescribed Yes Yes Yes Has offloadiing in place as prescribed N/A N/A N/A Experienced any changes in pain level or No No No management Left Footwear Regular Shoe Regular Shoe Regular Shoe Right Footwear Regular Shoe Regular Shoe Regular Shoe Pain Scale: 0-10 Numeric Is Patient Pain Free? Yes Yes Yes 09/14/21 09:00 - Today's Visit Information Type of service Follow-up Visit (Physician/ORTHOPEDIC SHOES SALESPERSON ) Arrival Mode Ambulatory, Walker Patient Identification Verified (Name & Yes ) Patient Requires Transmission-Based Precautions Safety Precautions Vital Signs Temperature (97.8 F-99.1 F) 98.0 F Temperature Source Temporal Pulse Rate (60-100) 68 Pulse Location Monitor Blood Pressure (90/60-120/80) 132/74 H Blood Pressure Mean (mm Hg) 93 Source Monitor Position Sitting Blood Pressure Location Left Arm History Since Last Visit- (Skip if this is Patient's initial visit) Have you changed medications since your No last visit? Any new allergies or adverse reactions No Had a fall/change in ADL's that may No increase risk of falls Signs or symptoms of abuse and/or No neglect since last visit Have you been in the hospital since your No last visit? Has dressing in place as prescribed Yes Has compression in place as prescribed Yes Has offloadiing in place as prescribed N/A Experienced any changes in pain level or management Left Footwear Regular Shoe Right Footwear Regular Shoe Pain Scale: 0-10 Numeric Is Patient Pain Free? Yes - Nurse 1 - General Ulcer Measurement Start: 08/31/21 10:05 Freq: Status: Active Protocol: Activity Type Activity Date Activity User E-sign Co-sign Detail Recorded Client Recorded Date Recorded By Document 08/31/21 10:06 DONITA [id number] 08/31/21 10:30 AK Document 09/07/21 10:58 ELIO [id number] 09/07/21 11:04 KR Document 09/14/21 09:00 KR [id number] 09/14/21 09:12 KR 08/31/21 09/07/21 09/14/21 10:06 10:58 09:00 Wound Center Nurse 1 12-left 4th toe -Combined with other wound No -Current Size (cm) - Length 0.1 0.1 -Current Size (cm) - Width 0.1 0.1 -Current Size (cm) - Depth 0.1 0.1 -Total Square Cm 0.01 0.01 -Date of Last Picture (Recall this 08/31/21 field) -Photo Taken Yes -Epithelialization None Present -Tunneling No -Undermining/Tunneling No -Circular Undermining No -Change in Wound Grade/Stage No -Exudate Amt None Present None Present -Wound Margin Flat & Intact Distinct, Outline Attached -Granulation Amt None Present (0 None Present (0 %) %) -Granulation Quality N/A -Slough/Fibrin No -Necrosis Amt None Present (0 None Present (0 %) %) -Structure Exposed N/A -Texture (Bren-wound Skin Appearance) Assessed,Callus Assessed, Scarring -Moisture (Bren-wound Skin Appearance) Assessed,Dry/ No Abnormality, Scaly Assessed -Color (Bren-wound Skin Appearance) No Abnormality, No Abnormality, Assessed Assessed -Temperature (Bren-wound Skin No Abnormality No Abnormality Appearance) (Pt Warm) (Pt Warm) -Tenderness on Palpation (Bren-wound No No Skin Appearance) -Ulcer Cleansing Soap and Water Rinsed/ Irrigated with Saline -Foul Odor after Cleansing No No -Anesthetic Used 4% Lidocaine 4% Lidocaine Solution Solution #10 Left Lower rick -Combined with other wound No -Current Size (cm) - Length 0.1 0.1 -Current Size (cm) - Width 0.1 0.1 -Current Size (cm) - Depth 0.1 0.1 -Total Square Cm 0.01 0.01 -Date of Last Picture (Recall this 08/31/21 field) -Photo Taken Yes -Epithelialization None Present -Tunneling No -Undermining/Tunneling No -Circular Undermining No -Exudate Amt Small None Present -Exudate Type Sanguineous -Wound Margin Distinct, Outline Attached -Granulation Amt None Present (0 None Present (0 %) %) -Granulation Quality N/A -Slough/Fibrin No -Necrosis Amt None Present (0 None Present (0 %) %) -Structure Exposed N/A -Texture (Bren-wound Skin Appearance) No Abnormality, Assessed, Assessed Scarring -Moisture (Bren-wound Skin Appearance) No Abnormality, No Abnormality, Assessed Assessed -Color (Bren-wound Skin Appearance) No Abnormality, No Abnormality, Assessed Assessed -Temperature (Bren-wound Skin No Abnormality No Abnormality Appearance) (Pt Warm) (Pt Warm) -Tenderness on Palpation (Bren-wound No No Skin Appearance) -Ulcer Cleansing Soap and Water Rinsed/ Irrigated with Saline -Foul Odor after Cleansing No No -Anesthetic Used 4% Lidocaine 4% Lidocaine Solution Solution 14 left medial heel -Current Size (cm) - Length 1.6 -Current Size (cm) - Width 0.7 -Current Size (cm) - Depth 0.3 -Total Square Cm 1.12 -Epithelialization Small 1-33% -Exudate Amt Medium -Exudate Type Serous -Wound Margin Distinct, Outline Attached -Granulation Amt Small (1-33%) -Granulation Quality Soso -Necrosis Amt Medium (34-66%) -Necrotic Tissue Type Adherent Slough -Texture (Bren-wound Skin Appearance) Assessed -Moisture (Bren-wound Skin Appearance) Assessed -Color (Bren-wound Skin Appearance) Assessed -Temperature (Bren-wound Skin No Abnormality Appearance) (Pt Warm) -Tenderness on Palpation (Bren-wound No Skin Appearance) -Ulcer Cleansing Soap and Water -Foul Odor after Cleansing No -Anesthetic Used 4% Lidocaine Solution #13 R Lower extremity cir -Current Size (cm) - Length 6 20 -Current Size (cm) - Width 21 9 -Current Size (cm) - Depth 0.1 0.1 -Total Square Cm 126 180 -Exudate Amt Large Medium -Exudate Type Serosanguineous Serous -Wound Margin Distinct, Distinct, Outline Outline Attached Attached -Granulation Amt Medium (34-66%) -Granulation Quality Red -Slough/Fibrin Yes -Necrosis Amt Medium (34-66%) -Necrotic Tissue Type Adherent Slough -Texture (Bren-wound Skin Appearance) Assessed, Assessed Scarring -Moisture (Bren-wound Skin Appearance) Assessed, Assessed Maceration -Color (Bren-wound Skin Appearance) No Abnormality, Assessed Assessed -Temperature (Bren-wound Skin No Abnormality No Abnormality Appearance) (Pt Warm) (Pt Warm) -Tenderness on Palpation (Bren-wound No Yes Skin Appearance) -Ulcer Cleansing Soap and Water Soap and Water -Foul Odor after Cleansing No No -Anesthetic Used 4% Lidocaine 4% Lidocaine Solution Solution,5% Lidocaine Gel 6-left heel -Combined with other wound No -Current Size (cm) - Length 0.5 2.6 0.2 -Current Size (cm) - Width 0.6 1.5 0.2 -Current Size (cm) - Depth 0.2 0.1 0.1 -Total Square Cm 0.30 3.90 0.04 -Date of Last Picture (Recall this 08/31/21 field) -Photo Taken Yes -Tunneling No -Undermining/Tunneling No -Circular Undermining No -Exudate Amt Medium Small Medium -Exudate Type Serosanguineous Serosanguineous Serous -Wound Margin Thickened & Distinct, Distinct, Rolled Under Outline Outline Attached Attached -Granulation Amt Large (67-100%) Medium (34-66%) Large (67-100%) -Granulation Quality Red Soso Soso -Slough/Fibrin No Yes -Necrosis Amt None Present (0 Medium (34-66%) Small (1-33%) %) -Necrotic Tissue Type Adherent Slough Adherent Slough -Structure Exposed N/A -Texture (Bren-wound Skin Appearance) Assessed,Callus Assessed, Assessed Scarring -Moisture (Bren-wound Skin Appearance) No Abnormality, No Abnormality, Assessed Assessed Assessed -Color (Bren-wound Skin Appearance) No Abnormality, No Abnormality, Assessed Assessed Assessed -Temperature (Bren-wound Skin No Abnormality No Abnormality Appearance) (Pt Warm) (Pt Warm) -Tenderness on Palpation (Bren-wound No No No Skin Appearance) -Ulcer Cleansing Soap and Water Rinsed/ Soap and Water Irrigated with Saline -Foul Odor after Cleansing No No No -Anesthetic Used 4% Lidocaine 4% Lidocaine 4% Lidocaine Solution Solution Solution,5% Lidocaine Gel Right Calf (cm) 38 44.5 40 Right Ankle (cm) 23 29 27.2 Left Calf (cm) 36 41 37.5 Left Ankle (cm) 23 25 23.5 WC - Nurse 2 - General Ulcer CM Notes Start: 08/31/21 10:05 Freq: Status: Active Protocol: Activity Type Activity Date Activity User E-sign Co-sign Detail Recorded Client Recorded Date Recorded By Document 08/31/21 14:40 PL [id number] 08/31/21 14:43 PL Document 09/07/21 11:19 [id number] 09/07/21 11:40 Document 09/14/21 09:45 PL [id number] 09/14/21 09:48 PL 08/31/21 09/07/21 09/14/21 14:40 11:19 09:45 Wound Center Nurse 2 12-left 4th toe -Time 10:30 -Correct Patient Yes No -Correct Side, Site, Position Yes No -Correct Procedure Yes No -Procedure Performed Yes No -Type of Procedure Debridement -Clinical Debridement Subcutaneous -Tissue Removed Subcutaneous -Post Debridement (cm) - Length 0.1 0 -Post Debridement (cm) - Width 0.1 0 -Post Debridement (cm) - Depth 0.1 0 -Total Square (Post) (cm) 0.01 0 -Area of Debridement (cm) - Length 0.1 0 -Area of Debridement (cm) - Width 0.1 0 -Total Square (Area) (cm) 0.01 0 -Tunneling No -Undermining/Tunneling No -Circular Undermining No -Wound/Ulcer Outcome Not Healed Healed- Epithelialized -Ulcer Cleansing Rinsed/ Irrigated with Saline -Foul Odor after Cleansing No -Bioengineered Tissue No -Bleeding Controlled with Pressure -Treatment Response Procedure Tolerated Well -Debridement - Subq, 1st 20sq cm No #10 Left Lower rick -Time 10:30 -Correct Patient Yes No -Correct Side, Site, Position Yes No -Correct Procedure Yes No -Procedure Performed Yes No -Type of Procedure Debridement -Clinical Debridement Subcutaneous -Tissue Removed Subcutaneous -Post Debridement (cm) - Length 0.1 0 -Post Debridement (cm) - Width 0.1 0 -Post Debridement (cm) - Depth 0.1 0 -Total Square (Post) (cm) 0.01 0 -Area of Debridement (cm) - Length 0.1 0 -Area of Debridement (cm) - Width 0.1 0 -Total Square (Area) (cm) 0.01 0 -Tunneling No -Undermining/Tunneling No -Circular Undermining No -Wound/Ulcer Outcome Not Healed Healed- Epithelialized -Ulcer Cleansing Rinsed/ Irrigated with Saline -Foul Odor after Cleansing No -Bioengineered Tissue No -Bleeding Controlled with Pressure -Treatment Response Procedure Tolerated Well -Debridement - Subq, 1st 20sq cm Yes 14 left medial heel -Time 11:32 09:25 -Correct Patient Yes Yes -Correct Side, Site, Position Yes Yes -Correct Procedure Yes Yes -Procedure Performed Yes Yes -Type of Procedure Debridement Debridement -Clinical Debridement Subcutaneous Subcutaneous -Tissue Removed Subcutaneous Subcutaneous -Post Debridement (cm) - Length 1.5 1.6 -Post Debridement (cm) - Width 2.0 0.7 -Post Debridement (cm) - Depth 0.1 0.3 -Total Square (Post) (cm) 3.00 1.12 -Area of Debridement (cm) - Length 1.5 1.6 -Area of Debridement (cm) - Width 2.0 0.7 -Total Square (Area) (cm) 3.00 1.12 -Tunneling No No -Undermining/Tunneling No No -Circular Undermining No No -Wound/Ulcer Outcome Not Healed Not Healed -Ulcer Cleansing Rinsed/ Rinsed/ Irrigated with Irrigated with Saline Saline -Foul Odor after Cleansing No No -Bioengineered Tissue No No -Bleeding Controlled with Pressure Pressure -Treatment Response Procedure Procedure Tolerated Well Tolerated Well -Offloading No -Debridement - Subq, 1st 20sq cm No No #13 R Lower extremity cir -Time 11:20 09:25 -Correct Patient Yes Yes -Correct Side, Site, Position Yes Yes -Correct Procedure Yes Yes -Procedure Performed Yes Yes -Type of Procedure Debridement Debridement -Clinical Debridement Subcutaneous Subcutaneous -Tissue Removed Subcutaneous Subcutaneous -Post Debridement (cm) - Length 6.1 9.0 -Post Debridement (cm) - Width 21 20 -Post Debridement (cm) - Depth 0.1 0.1 -Total Square (Post) (cm) 128.1 180.0 -Area of Debridement (cm) - Length 6.1 9.0 -Area of Debridement (cm) - Width 21 20.0 -Total Square (Area) (cm) 128.1 180.00 -Tunneling No No -Undermining/Tunneling No No -Circular Undermining No No -Wound/Ulcer Outcome Not Healed Not Healed -Ulcer Cleansing Rinsed/ Rinsed/ Irrigated with Irrigated with Saline Saline -Foul Odor after Cleansing No No -Bioengineered Tissue No No -Bleeding Controlled with Pressure Pressure -Treatment Response Procedure Procedure Tolerated Well Tolerated Well -Offloading No -Debridement - Subq, 1st 20sq cm Yes Yes -Debridement, SubQ, ea addt'l 20sq cm 6 8 or part thereof 6-left heel -Time 10:30 11:25 09:25 -Correct Patient Yes Yes Yes -Correct Side, Site, Position Yes Yes Yes -Correct Procedure Yes Yes Yes -Procedure Performed Yes Yes Yes -Type of Procedure Debridement Debridement Debridement -Clinical Debridement Subcutaneous Subcutaneous Subcutaneous -Tissue Removed Subcutaneous Subcutaneous Subcutaneous -Post Debridement (cm) - Length 0.5 0.5 0.2 -Post Debridement (cm) - Width 0.6 0.4 0.2 -Post Debridement (cm) - Depth 0.2 0.1 0.1 -Total Square (Post) (cm) 0.30 0.20 0.04 -Area of Debridement (cm) - Length 0.5 0.5 0.2 -Area of Debridement (cm) - Width 0.6 0.4 0.2 -Total Square (Area) (cm) 0.30 0.20 0.04 -Tunneling No No No -Undermining/Tunneling No No No -Circular Undermining No No No -Wound/Ulcer Outcome Not Healed Not Healed Not Healed -Ulcer Cleansing Rinsed/ Rinsed/ Rinsed/ Irrigated with Irrigated with Irrigated with Saline Saline Saline -Foul Odor after Cleansing No No No -Bioengineered Tissue No No No -Bleeding Controlled with Pressure Pressure Pressure -Treatment Response Procedure Procedure Procedure Tolerated Well Tolerated Well Tolerated Well -Offloading Yes -Type of Offloading Surgical Shoe -Debridement - Subq, 1st 20sq cm No No No Pain Scale: 0-10 Numeric Is Patient Pain Free? Yes Yes Yes WC - Nurse 3 - General Ulcer D/C NN Start: 08/31/21 10:05 Freq: Status: Active Protocol: Activity Type Activity Date Activity User E-sign Co-sign Detail Recorded Client Recorded Date Recorded By Document 08/31/21 12:20 AK [id number] 08/31/21 12:22 AK Document 08/31/21 12:22 AK [id number] 08/31/21 12:23 AK Document 09/07/21 12:15 KR [id number] 09/07/21 12:16 KR Document 09/11/21 15:20 AK [id number] 09/11/21 15:23 AK 08/31/21 08/31/21 09/07/21 12:20 12:22 12:15 Wound Care Nurse 3 12-left 4th toe -Ulcer Cleansing Rinsed/ Irrigated with Saline -Foul Odor after Cleansing No -Negative Pressure Wound Therapy N/A -Primary Dressing Applied Aquacel AG 4x4, Promogran Samantha Matter -Primary Dressing Covered/Secured with Dry Gauze & Roll Gauze, Secured with Tape -Aquacel AG 4x4 1 -Promogran Samantha Matter 1 #10 Left Lower rick -Ulcer Cleansing Rinsed/ Irrigated with Saline -Foul Odor after Cleansing No -Negative Pressure Wound Therapy N/A -Other Dressing ABD -Primary Dressing Covered/Secured with Dry Gauze & Roll Gauze, Secured with Tape 14 left medial heel -Ulcer Cleansing Rinsed/ Irrigated with Saline -Foul Odor after Cleansing -Negative Pressure Wound Therapy -Primary Dressing Applied Aquacel AG 4x4, Promogran Samantha Matter -Other Dressing Abd -Primary Dressing Covered/Secured with Dry Gauze & Roll Gauze, Secured with Tape -Aquacel AG 4x4 1 -Promogran Samantha Matter 2 #13 R Lower extremity cir -Ulcer Cleansing -Foul Odor after Cleansing -Negative Pressure Wound Therapy -Primary Dressing Applied -Other Dressing abd pad -Primary Dressing Covered/Secured with Dry Gauze, Secured with Tape -Promogran Samantha Matter 6-left heel -Ulcer Cleansing Rinsed/ Rinsed/ Irrigated with Irrigated with Saline Saline -Foul Odor after Cleansing No -Negative Pressure Wound Therapy N/A -Primary Dressing Applied Aquacel AG 4x4, Promogran Samantha Matter -Other Dressing abd pad -Primary Dressing Covered/Secured with Dry Gauze & Secured with Roll Gauze, Tape Secured with Tape -Aquacel AG 4x4 0 -Promogran Samantha Matter 0 Right -Lotion applied to leg before compression wrap -Multi-Layered Wrap Application -Tubular Bandage Double Layer -Size of Tubigrip Used Size E -Size E ($) 2 Left -Lotion applied to leg before No compression wrap -Compression Wrap Surepress ($) Vital Signs Temperature (97.8 F-99.1 F) Temperature Source Pulse Rate (60-100) Pulse Location Blood Pressure (90/60-120/80) Blood Pressure Mean (mm Hg) Source Pain Scale: 0-10 Numeric Is Patient Pain Free? Yes Yes Yes WC - Visit Discharge Discharge Condition Stable Stable Ambulatory Status Ambulatory, Walker Walker Medication Reconcilliation completed & Yes provided to patient/care provider Clinical Summary of Care Provided Yes 09/11/21 15:20 Wound Care Nurse 3 12-left 4th toe -Ulcer Cleansing -Foul Odor after Cleansing -Negative Pressure Wound Therapy -Primary Dressing Applied -Primary Dressing Covered/Secured with -Aquacel AG 4x4 -Promogran Samantha Matter #10 Left Lower rick -Ulcer Cleansing -Foul Odor after Cleansing -Negative Pressure Wound Therapy -Other Dressing -Primary Dressing Covered/Secured with 14 left medial heel -Ulcer Cleansing Rinsed/ Irrigated with Saline -Foul Odor after Cleansing No -Negative Pressure Wound Therapy N/A -Primary Dressing Applied Aquacel AG 4x4 -Other Dressing -Primary Dressing Covered/Secured with Dry Gauze & Roll Gauze, Secured with Tape -Aquacel AG 4x4 1 -Promogran Samantha Matter #13 R Lower extremity cir -Ulcer Cleansing Rinsed/ Irrigated with Saline -Foul Odor after Cleansing No -Negative Pressure Wound Therapy N/A -Primary Dressing Applied Promogran Samantha Matter -Other Dressing -Primary Dressing Covered/Secured with Dry Gauze & Roll Gauze, Secured with Tape -Promogran Samantha Matter 1 6-left heel -Ulcer Cleansing Rinsed/ Irrigated with Saline -Foul Odor after Cleansing No -Negative Pressure Wound Therapy N/A -Primary Dressing Applied Aquacel AG 4x4 -Other Dressing -Primary Dressing Covered/Secured with Dry Gauze & Roll Gauze, Secured with Tape -Aquacel AG 4x4 0 -Promogran Samantha Matter Right -Lotion applied to leg before No compression wrap -Multi-Layered Wrap Application Multi-Layer Comp - Bilat ($ ) -Tubular Bandage -Size of Tubigrip Used -Size E ($) Left -Lotion applied to leg before compression wrap -Compression Wrap Vital Signs Temperature (97.8 F-99.1 F) 97.9 F Temperature Source Temporal Pulse Rate (60-100) 71 Pulse Location Monitor Blood Pressure (90/60-120/80) 142/68 H Blood Pressure Mean (mm Hg) 92 Source Monitor Pain Scale: 0-10 Numeric Is Patient Pain Free? Yes WC - Visit Discharge Discharge Condition Ambulatory Status Medication Reconcilliation completed & provided to patient/care provider Clinical Summary of Care Provided Additional Wound Wound debrided: Left lower extremity Laterality: Left Wound Grade/Stage: Glasgow stage I Type of Debridement: Selective debridement Anesthesia Used: 5% Lidocaine Gel Depth: Down to and including healthy tissue and in the subcutaneous layer Percentage of wound debrided: 100 Instrument Used: 3mm curette Tissue Removed: Fibrous, devitalized subcutaneous, biofilm, slough Severity: Fat Layer Exposed Amount of bleeding with debridement: Mild Bleeding Controlled with: Compression and gauze Patient tolerated procedure: Patient tolerated procedure well Additional Wound Wound debrided: Right lower extremity Laterality: Right Wound Grade/Stage: Glasgow stage I Type of Debridement: Selective debridement Anesthesia Used: 5% Lidocaine Gel Depth: Down to and including healthy tissue and in the subcutaneous layer Percentage of wound debrided: 100 Instrument Used: 3mm curette Tissue Removed: Fibrous, devitalized subcutaneous, biofilm, slough Severity: Fat Layer Exposed Amount of bleeding with debridement: Mild Bleeding Controlled with: Compression and gauze Patient tolerated procedure: Patient tolerated procedure well Assessment/Plan Assessment/Plan (1) Pressure ulcer of left heel, stage 2: CODE(S): L89.622 - Pressure ulcer of left heel, stage 2 (2) Chronic kidney disease (CKD) stage G3a/A2, moderately decreased glomerular filtration rate (GFR) between 45-59 mL/min/1.73 square meter and albuminuria creatinine ratio between 30-299 mg/g: CODE(S): N18.31 - Chronic kidney disease, stage 3a (3) Pain in left foot: CODE(S): M79.672 - Pain in left foot (4) Type II diabetes mellitus: CODE(S): E11.9 - Type 2 diabetes mellitus without complications QUALIFIERS: Diabetes mellitus prison insulin use: unspecified prison insulin use status Diabetes mellitus complication status: with neurologic complications Diabetes mellitus complication detail: with polyneuropathy Qualified Code(s): E11.42 - Type 2 diabetes mellitus with diabetic polyneuropathy (5) Bilateral edema of lower extremity: CODE(S): R60.0 - Localized edema PLAN: Plan This is a 60-year-old female presenting to the wound care center today with stage II pressure ulcer of the left heel. She has history of left heel ulceration with osteomyelitis back in [address] Brown. Following replacement of her hip in January 2021 she subsequently reopened her left plantar heel secondary to placing more pressure at this limb site during her physical therapy and recovery process. Patient seen and evaluated. Ulceration to the left plantar heel demonstrates a pink wound base with scant mixed fibrotic tissue and maceration throughout the wound bed. Ulceration site demonstrates no signs of infection. Wound margins demonstrate scant yellow crusting, maceration, and hyperkeratosis. Ulceration site was sharply debrided as stated in the clinical panel above. This was tolerated well. She has multiple wounds secondary to blister formations to the left extremity secondary to edema. These are currently stable with no signs of infection. Right leg ulceration sites secondary to edema. The blister sites were debrided and dressed with Adaptic, Aquacel Ag, and supersorb. Left lower extremity dressed with 3M compression wrap. Right leg dressed with 3M compression wrap. I discussed elevating her legs to continue to aid in edema reduction and remaining compliant with her compression dressings. Ulceration site left heel dressed with Betadine, Samantha, Aquacel Ag and dry sterile dressing. Compression wrap applied to the left lower extremity to aid in control of edema. Dressings to be changed daily. She is to continue to offload the left heel. She continues to demonstrate progression in healing status of multiple wounds She will return to the wound care center on Saturday and for a dressing change to bilateral leg. I discussed with her localized signs of infection. She is to observe for any erythema or redness moving up the leg, malodor to the ulceration site, purulent drainage from the ulceration site, increased pain to the left heel, or if she experiences any nausea, vomiting, fever, chills or other constitutional symptoms that these are signs of a progressing infection and she needs to report to the ED. She voices understanding of this. The following work up and care recommendations were made: Dressing: Samantha and Aquacel Ag-left heel; Adaptic to blister sites with Aquacel Ag and Suprasorb, left leg 3M compression wrap; right lower extremity 3M compression wrap Wash: Soap and water to left heel and bilateral legs Tissue growth optimization: Samantha Offload: Offloading surgical shoe with heel cut out Vascular: Palpable pedal pulses Edema: Elevation of lower extremities and Compression wrap left lower extremity. Double Tubigrip right lower extremity Infection: No localized signs of infection Pain: Patient may take [id number] Tylenol extra strength for pain control Host factors: Diabetes mellitus type 2, history of osteomyelitis left heel I answered all the patient's questions. To return to the wound healing center in 2 weeks or call sooner if the patient has any questions or concerns. Note: [employer]kicker speech recognition materials coordinator software was used to create portions of this document. Sound-alike and misspelled words, as well as other materials coordinator errors may be contained in the documentation.
[2021-09-21 12:55] VITALS: BP 159/69; PULSE 75; RESP 16; TEMP 36.7
[2021-09-26 13:25] VITALS: BP 139/76; PULSE 90; TEMP 35.7
[2021-09-28 09:34] VITALS: BP 139/83; PULSE 73; TEMP 36.8
--- NOTE | 2021-09-28 16:33 | PN.PCM_ITS ---
History of Present Illness Date of Service: 09/28/21 Chief Complaint: left heel ulcer left ankle ulcer- healed History of Wound: In October 2019, patient had rubbing in shoes while shopping which led to a blister that developed into an ulceration. Patient was then seen by Dewey Amezquita.P.Usha. for wound care. Patient then became infected and was admitted to the hospital. Patient was noted to have OM on MRI. Patient wanted to avoid surgery so a terminologist course of appropriate IV antibiotics was the treatment chosen. Patient was also noted to have hyperglycemia and has worked with hospitalist and PCP to try to get better control. Blood sugar levels remain elevated. Patient also had LEAS obtained in the hospital which suggested patient had the proper blood flow to allow healing. Patient has since finished terminologist course of antibiotics. Patient has since been seen on a weekly basis in office with progression and regression of wound noted over the weeks. Patient has tried various dressing options including wet to dry and santyl. The most progress was noted with Santyl but patient ran out and was unable to refill due to insurance issues. During which time the wound regressed. She also has an offloading surgical shoe and offloading boot to relieve pressure. Patient care is henceforth being carried out at the wound care center. Patient not currently on any antibiotics. Patient has since began skin graft aplications significant improvement is been noted to her foot overall. Patient has finished epifix graft applications with some very small remaining wound noted to left heel. Patient has new wounds noted to bilateral third digits. The right 3rd digit wound has healed. Her left ankle ulcer remains healed Patient relates that ambulation is getting easier and she is rebuilding her strength slowly. She has not had any worsening of minor remaining heel wound since beginning ambulation again. 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 Her has been helping her change the dressings daily to the left heel. She presents to the wound care center today for continued care of her left heel ulceration. Subjective Subjective 61-year-old female presents for follow-up to the wound care center for a left heel ulceration and circumferential leg wounds bilateral.? She denies any constitutional symptoms today. She has been performing her dressing changes daily to the heel.? She has been coming to the wound care center for nurse visits for a dressing change and thinks this is helping to decrease her swelling in her legs. She has no further complaints today. Objective Data Objective Data Vital Signs: Vital Signs Temp Pulse Resp BP O2 Del Method 98.2 F 73 16 139/83 H Room Air 09/28/21 09:34 09/28/21 09:34 09/21/21 12:55 09/28/21 09:34 09/21/21 12:55 Oxygen Delivery Method Room Air Physical Exam Const alert, oriented x3 and no apparent distress General Appearance: cooperative and comfortable HEENT normocephalic Eyes General Eye: normal appearance of both eyes Neck General: normal visual inspection Lymph Lymphatic: no lymphadenopathy noted and no lymphedema noted Resp normal respiratory effort Cardio regular rate and regular rhythm Extremity normal capillary refill, no calf tenderness and no pedal edema Skin no rashes or lesions noted, skin turgor normal and no jaundice Wound Narrative: Right posterior leg abrasion, stable, no local signs of infection. Right anterior and anterior medial ulceration secondary to blister formation. No signs of infection. Left lower extremity heel decubitus ulceration. Ulcerative site demonstrates pink wound base with scant fibrotic tissue throughout the wound bed with serosanguineous drainage and no signs of infection. No palpable fluctuance noted to the left heel. Ulcerative site does have hyperkeratotic tissue at the wound margins. Ulcerative site demonstrates closure centrally with new skin formation. Left lower extremity circumferential wounds secondary to blister formation. Site is stable no signs of infection. Dorsal abrasions digits 3 and 4 left foot secondary to previous blister formation. There is wounds of digit 3 and 4 of the right foot secondary to pr evious hemorrhagic blister formation. Sites demonstrate no signs of infection. Neuro oriented x3 and moves all extremities Motor Exam: strength 5/5 throughout Debridement Note Debridement Note Wound debrided: Left heel Laterality: Left Wound Grade/Stage: Glasgow stage II Type of Debridement: Excisional debridement Anesthesia Used: 5% Lidocaine Gel Depth: Down to and including healthy tissue and in the subcutaneous layer Percentage of wound debrided: 100 Instrument Used: 3mm curette Tissue Removed: Fibrous, devitalized subcutaneous, biofilm, slough Severity: Fat Layer Exposed Amount of bleeding with debridement: Mild Bleeding Controlled with: Compression and gauze Patient tolerated procedure: Patient tolerated procedure well Post-Debridement Measurements and Additional Note: Post-Debridement Measurements/Treatment WC - Nurse 1 - General Ulcer Assessment Start: 08/31/21 10:05 Freq: Status: Active Protocol: [email or web address] Activity Type Activity Date Activity User E-sign Co-sign Detail Recorded Client Recorded Date Recorded By Document 08/31/21 10:06 DONITA [id number] 08/31/21 10:30 AK Document 09/07/21 10:58 KR [id number] 09/07/21 11:04 KR Document 09/11/21 15:20 AK [id number] 09/11/21 15:23 AK Document 09/14/21 09:00 KR [id number] 09/14/21 09:12 KR Document 09/21/21 12:55 BM [id number] 09/21/21 13:07 BMF Document 09/26/21 13:25 AK [id number] 09/26/21 13:29 AK Document 09/28/21 09:34 AK [id number] 09/28/21 09:37 AK 08/31/21 09/07/21 09/11/21 10:06 10:58 15:20 - Today's Visit Information Type of service Follow-up Visit Follow-up Visit Nurse-only (Physician/SUPERVISOR INSTRUMENT REPAIR (Physician/SUPERVISOR INSTRUMENT REPAIR Visit ) ) Arrival Mode Ambulatory, Ambulatory, Ambulatory, Walker Walker Walker Transfer Assistance Patient Identification Verified (Name & Yes Yes Yes ) Patient Requires Transmission-Based No No Precautions Safety Precautions Fall Prevention Vital Signs Temperature (97.8 F-99.1 F) 98.1 F 97.4 F L 97.9 F Temperature Source Temporal Temporal Temporal Pulse Rate (60-100) 93 91 71 Pulse Location Monitor Monitor Monitor Respiratory Rate (12-18) Respiratory rate source Oxygen Delivery Method Blood Pressure (90/60-120/80) 153/92 H 139/73 H 142/68 H Blood Pressure Mean (mm Hg) 112 95 92 Source Monitor Monitor Monitor Position Sitting Blood Pressure Location Right Arm History Since Last Visit- (Skip if this is Patient's initial visit) Have you changed medications since your No No No last visit? Any new allergies or adverse reactions No No No Had a fall/change in ADL's that may No No No increase risk of falls Signs or symptoms of abuse and/or No No No neglect since last visit Have you been in the hospital since your No No No last visit? Has dressing in place as prescribed Yes Yes Yes Has compression in place as prescribed Yes Yes Yes Has offloadiing in place as prescribed N/A N/A N/A Experienced any changes in pain level or No No No management Left Footwear Regular Shoe Regular Shoe Regular Shoe Right Footwear Regular Shoe Regular Shoe Regular Shoe Pain Scale: 0-10 Numeric Is Patient Pain Free? Yes Yes Yes 09/14/21 09/21/21 09/26/21 09:00 12:55 13:25 - Today's Visit Information Type of service Follow-up Visit Nurse-only Nurse-only (Physician/SUPERVISOR INSTRUMENT REPAIR Visit Visit ) Arrival Mode Ambulatory, Ambulatory, Ambulatory, Walker Walker Walker Transfer Assistance None Patient Identification Verified (Name & Yes Yes Yes ) Patient Requires Transmission-Based No No Precautions Safety Precautions NA Vital Signs Temperature (97.8 F-99.1 F) 98.0 F 98.1 F 96.2 F L Temperature Source Temporal Temporal Temporal Pulse Rate (60-100) 68 75 90 Pulse Location Monitor Monitor Monitor Respiratory Rate (12-18) 16 Respiratory rate source Observation Oxygen Delivery Method Room Air Blood Pressure (90/60-120/80) 132/74 H 159/69 H 139/76 H Blood Pressure Mean (mm Hg) 93 99 97 Source Monitor Monitor Monitor Position Sitting Sitting Blood Pressure Location Left Arm Left Arm History Since Last Visit- (Skip if this is Patient's initial visit) Have you changed medications since your No No No last visit? Any new allergies or adverse reactions No No No Had a fall/change in ADL's that may No No No increase risk of falls Signs or symptoms of abuse and/or No No No neglect since last visit Have you been in the hospital since your No No No last visit? Has dressing in place as prescribed Yes Yes Yes Has compression in place as prescribed Yes Yes Yes Has offloadiing in place as prescribed N/A N/A N/A Experienced any changes in pain level or No No management Left Footwear Regular Shoe Regular Shoe Regular Shoe Right Footwear Regular Shoe Regular Shoe Regular Shoe Pain Scale: 0-10 Numeric Is Patient Pain Free? Yes Yes Yes 09/28/21 09:34 - Today's Visit Information Type of service Follow-up Visit (Physician/SUPERVISOR INSTRUMENT REPAIR ) Arrival Mode Ambulatory, Walker Transfer Assistance Patient Identification Verified (Name & Yes ) Patient Requires Transmission-Based No Precautions Safety Precautions NA Vital Signs Temperature (97.8 F-99.1 F) 98.2 F Temperature Source Temporal Pulse Rate (60-100) 73 Pulse Location Monitor Respiratory Rate (12-18) Respiratory rate source Oxygen Delivery Method Blood Pressure (90/60-120/80) 139/83 H Blood Pressure Mean (mm Hg) 101 Source Monitor Position Blood Pressure Location History Since Last Visit- (Skip if this is Patient's initial visit) Have you changed medications since your No last visit? Any new allergies or adverse reactions No Had a fall/change in ADL's that may No increase risk of falls Signs or symptoms of abuse and/or No neglect since last visit Have you been in the hospital since your No last visit? Has dressing in place as prescribed Yes Has compression in place as prescribed Yes Has offloadiing in place as prescribed N/A Experienced any changes in pain level or No management Left Footwear Regular Shoe Right Footwear Regular Shoe Pain Scale: 0-10 Numeric Is Patient Pain Free? Yes WC - Nurse 1 - General Ulcer Measurement Start: 08/31/21 10:05 Freq: Status: Active Protocol: Activity Type Activity Date Activity User E-sign Co-sign Detail Recorded Client Recorded Date Recorded By Document 08/31/21 10:06 DONITA [id number] 08/31/21 10:30 AK Document 09/07/21 10:58 ELIO [id number] 09/07/21 11:04 KR Document 09/14/21 09:00 KR [id number] 09/14/21 09:12 KR Document 09/21/21 12:[address] [facility] [id number] 09/21/21 13:[address] [facility] Document 09/28/21 09:34 ND [id number] 09/28/21 09:37 AK 08/31/21 09/07/21 09/14/21 10:06 10:58 09:00 Wound Center Nurse 1 14 left medial heel -Combined with other wound -Combined with (Name of Wound-Exactly as it is documented) -Current Size (cm) - Length 1.6 -Current Size (cm) - Width 0.7 -Current Size (cm) - Depth 0.3 -Total Square Cm 1.12 -Photo Taken -Epithelialization Small 1-33% -Tunneling -Circular Undermining -Change in Wound Grade/Stage -Exudate Amt Medium -Exudate Type Serous -Wound Margin Distinct, Outline Attached -Granulation Amt Small (1-33%) -Granulation Quality [place] -Necrosis Amt Medium (34-66%) -Necrotic Tissue Type Adherent Slough -Structure Exposed -Texture (Bren-wound Skin Appearance) Assessed -Moisture (Bren-wound Skin Appearance) Assessed -Color (Bren-wound Skin Appearance) Assessed -Temperature (Bren-wound Skin No Abnormality Appearance) (Pt Warm) -Tenderness on Palpation (Bren-wound No Skin Appearance) -Ulcer Cleansing Soap and Water -Foul Odor after Cleansing No -Anesthetic Used 4% Lidocaine Solution #13 R Lower extremity cir -Current Size (cm) - Length 6 20 -Current Size (cm) - Width 21 9 -Current Size (cm) - Depth 0.1 0.1 -Total Square Cm 126 180 -Exudate Amt Large Medium -Exudate Type Serosanguineous Serous -Wound Margin Distinct, Distinct, Outline Outline Attached Attached -Granulation Amt Medium (34-66%) -Granulation Quality Red -Slough/Fibrin Yes -Necrosis Amt Medium (34-66%) -Necrotic Tissue Type Adherent Slough -Texture (Bren-wound Skin Appearance) Assessed, Assessed Scarring -Moisture (Bren-wound Skin Appearance) Assessed, Assessed Maceration -Color (Bren-wound Skin Appearance) No Abnormality, Assessed Assessed -Temperature (Bren-wound Skin No Abnormality No Abnormality Appearance) (Pt Warm) (Pt Warm) -Tenderness on Palpation (Bren-wound No Yes Skin Appearance) -Ulcer Cleansing Soap and Water Soap and Water -Foul Odor after Cleansing No No -Anesthetic Used 4% Lidocaine 4% Lidocaine Solution Solution,5% Lidocaine Gel 12-left 4th toe -Combined with other wound No -Current Size (cm) - Length 0.1 0.1 -Current Size (cm) - Width 0.1 0.1 -Current Size (cm) - Depth 0.1 0.1 -Total Square Cm 0.01 0.01 -Date of Last Picture (Recall this 08/31/21 field) -Photo Taken Yes -Epithelialization None Present -Tunneling No -Undermining/Tunneling No -Circular Undermining No -Change in Wound Grade/Stage No -Exudate Amt None Present None Present -Wound Margin Flat & Intact Distinct, Outline Attached -Granulation Amt None Present (0 None Present (0 %) %) -Granulation Quality N/A -Slough/Fibrin No -Necrosis Amt None Present (0 None Present (0 %) %) -Structure Exposed N/A -Texture (Bren-wound Skin Appearance) Assessed,Callus Assessed, Scarring -Moisture (Bren-wound Skin Appearance) Assessed,Dry/ No Abnormality, Scaly Assessed -Color (Bren-wound Skin Appearance) No Abnormality, No Abnormality, Assessed Assessed -Temperature (Bren-wound Skin No Abnormality No Abnormality Appearance) (Pt Warm) (Pt Warm) -Tenderness on Palpation (Bren-wound No No Skin Appearance) -Ulcer Cleansing Soap and Water Rinsed/ Irrigated with Saline -Foul Odor after Cleansing No No -Anesthetic Used 4% Lidocaine 4% Lidocaine Solution Solution #10 Left Lower rick -Combined with other wound No -Current Size (cm) - Length 0.1 0.1 -Current Size (cm) - Width 0.1 0.1 -Current Size (cm) - Depth 0.1 0.1 -Total Square Cm 0.01 0.01 -Date of Last Picture (Recall this 08/31/21 field) -Photo Taken Yes -Epithelialization None Present -Tunneling No -Undermining/Tunneling No -Circular Undermining No -Exudate Amt Small None Present -Exudate Type Sanguineous -Wound Margin Distinct, Outline Attached -Granulation Amt None Present (0 None Present (0 %) %) -Granulation Quality N/A -Slough/Fibrin No -Necrosis Amt None Present (0 None Present (0 %) %) -Structure Exposed N/A -Texture (Bren-wound Skin Appearance) No Abnormality, Assessed, Assessed Scarring -Moisture (Bren-wound Skin Appearance) No Abnormality, No Abnormality, Assessed Assessed -Color (Bren-wound Skin Appearance) No Abnormality, No Abnormality, Assessed Assessed -Temperature (Bren-wound Skin No Abnormality No Abnormality Appearance) (Pt Warm) (Pt Warm) -Tenderness on Palpation (Bren-wound No No Skin Appearance) -Ulcer Cleansing Soap and Water Rinsed/ Irrigated with Saline -Foul Odor after Cleansing No No -Anesthetic Used 4% Lidocaine 4% Lidocaine Solution Solution 6-left heel -Combined with other wound No -Current Size (cm) - Length 0.5 2.6 0.2 -Current Size (cm) - Width 0.6 1.5 0.2 -Current Size (cm) - Depth 0.2 0.1 0.1 -Total Square Cm 0.30 3.90 0.04 -Date of Last Picture (Recall this 08/31/21 field) -Photo Taken Yes -Tunneling No -Undermining/Tunneling No -Circular Undermining No -Exudate Amt Medium Small Medium -Exudate Type Serosanguineous Serosanguineous Serous -Wound Margin Thickened & Distinct, Distinct, Rolled Under Outline Outline Attached Attached -Granulation Amt Large (67-100%) Medium (34-66%) Large (67-100%) -Granulation Quality [place] -Slough/Fibrin No Yes -Necrosis Amt None Present (0 Medium (34-66%) Small (1-33%) %) -Necrotic Tissue Type Adherent Slough Adherent Slough -Structure Exposed N/A -Texture (Bren-wound Skin Appearance) Assessed,Callus Assessed, Assessed Scarring -Moisture (Bren-wound Skin Appearance) No Abnormality, No Abnormality, Assessed Assessed Assessed -Color (Bren-wound Skin Appearance) No Abnormality, No Abnormality, Assessed Assessed Assessed -Temperature (Bren-wound Skin No Abnormality No Abnormality Appearance) (Pt Warm) (Pt Warm) -Tenderness on Palpation (Bren-wound No No No Skin Appearance) -Ulcer Cleansing Soap and Water Rinsed/ Soap and Water Irrigated with Saline -Foul Odor after Cleansing No No No -Anesthetic Used 4% Lidocaine 4% Lidocaine 4% Lidocaine Solution Solution Solution,5% Lidocaine Gel Lower Limb Edema Present Right Calf (cm) 38 44.5 40 Right Ankle (cm) 23 29 27.2 Left Calf (cm) 36 41 37.5 Left Ankle (cm) 23 25 23.5 09/21/21 09/28/21 12:55 09:34 Wound Center Nurse 1 14 left medial heel -Combined with other wound Yes -Combined with (Name of Wound-Exactly Left heel as it is documented) -Current Size (cm) - Length 3 -Current Size (cm) - Width 3 -Current Size (cm) - Depth 0.1 -Total Square Cm 9 -Photo Taken No -Epithelialization -Tunneling No -Circular Undermining No -Change in Wound Grade/Stage No -Exudate Amt Medium -Exudate Type Serosanguineous -Wound Margin Distinct, Outline Attached -Granulation Amt Small (1-33%) -Granulation Quality N/A,[place] -Necrosis Amt Small (1-33%) -Necrotic Tissue Type Adherent Slough -Structure Exposed N/A -Texture (Bren-wound Skin Appearance) Assessed,Callus ,Scarring -Moisture (Bren-wound Skin Appearance) No Abnormality, Assessed -Color (Bren-wound Skin Appearance) No Abnormality, Assessed -Temperature (Bren-wound Skin No Abnormality Appearance) (Pt Warm) -Tenderness on Palpation (Bren-wound No Skin Appearance) -Ulcer Cleansing Soap and Water -Foul Odor after Cleansing No -Anesthetic Used 5% Lidocaine Gel #13 R Lower extremity cir -Current Size (cm) - Length 0.1 -Current Size (cm) - Width 0.1 -Current Size (cm) - Depth 0.1 -Total Square Cm 0.01 -Exudate Amt -Exudate Type -Wound Margin -Granulation Amt -Granulation Quality -Slough/Fibrin -Necrosis Amt -Necrotic Tissue Type -Texture (Bren-wound Skin Appearance) No Abnormality, Assessed -Moisture (Bren-wound Skin Appearance) No Abnormality, Assessed -Color (Bren-wound Skin Appearance) Assessed,Rubor -Temperature (Bren-wound Skin No Abnormality Appearance) (Pt Warm) -Tenderness on Palpation (Bren-wound No Skin Appearance) -Ulcer Cleansing Soap and Water -Foul Odor after Cleansing No -Anesthetic Used 12-left 4th toe -Combined with other wound -Current Size (cm) - Length -Current Size (cm) - Width -Current Size (cm) - Depth -Total Square Cm -Date of Last Picture (Recall this field) -Photo Taken -Epithelialization -Tunneling -Undermining/Tunneling -Circular Undermining -Change in Wound Grade/Stage -Exudate Amt -Wound Margin -Granulation Amt -Granulation Quality -Slough/Fibrin -Necrosis Amt -Structure Exposed -Texture (Bren-wound Skin Appearance) -Moisture (Bren-wound Skin Appearance) -Color (Bren-wound Skin Appearance) -Temperature (Bren-wound Skin Appearance) -Tenderness on Palpation (Bren-wound Skin Appearance) -Ulcer Cleansing -Foul Odor after Cleansing -Anesthetic Used #10 Left Lower rick -Combined with other wound -Current Size (cm) - Length -Current Size (cm) - Width -Current Size (cm) - Depth -Total Square Cm -Date of Last Picture (Recall this field) -Photo Taken -Epithelialization -Tunneling -Undermining/Tunneling -Circular Undermining -Exudate Amt -Exudate Type -Wound Margin -Granulation Amt -Granulation Quality -Slough/Fibrin -Necrosis Amt -Structure Exposed -Texture (Bren-wound Skin Appearance) -Moisture (Bren-wound Skin Appearance) -Color (Bren-wound Skin Appearance) -Temperature (Bren-wound Skin Appearance) -Tenderness on Palpation (Bren-wound Skin Appearance) -Ulcer Cleansing -Foul Odor after Cleansing -Anesthetic Used 6-left heel -Combined with other wound No -Current Size (cm) - Length -Current Size (cm) - Width -Current Size (cm) - Depth -Total Square Cm -Date of Last Picture (Recall this field) -Photo Taken -Tunneling -Undermining/Tunneling -Circular Undermining -Exudate Amt -Exudate Type -Wound Margin -Granulation Amt -Granulation Quality -Slough/Fibrin -Necrosis Amt -Necrotic Tissue Type -Structure Exposed -Texture (Bren-wound Skin Appearance) -Moisture (Bren-wound Skin Appearance) -Color (Bren-wound Skin Appearance) -Temperature (Bren-wound Skin Appearance) -Tenderness on Palpation (Bren-wound Skin Appearance) -Ulcer Cleansing -Foul Odor after Cleansing -Anesthetic Used Lower Limb Edema Present Yes Right Calf (cm) 35.5 37 Right Ankle (cm) 24.5 26 Left Calf (cm) 34.2 37 Left Ankle (cm) 22.5 25 WC - Nurse 2 - General Ulcer CM Notes Start: 08/31/21 10:05 Freq: Status: Active Protocol: Activity Type Activity Date Activity User E-sign Co-sign Detail Recorded Client Recorded Date Recorded By Document 08/31/21 14:40 PL [id number] 08/31/21 14:43 PL Document 09/07/21 11:19 JAUN [id number] 09/07/21 11:40 JF Document 09/14/21 09:45 PL [id number] 09/14/21 09:48 PL Document 09/28/21 12:24 PL [id number] 09/28/21 12:25 PL 08/31/21 09/07/21 09/14/21 14:40 11:19 09:45 Wound Center Nurse 2 14 left medial heel -Time 11:32 09:25 -Correct Patient Yes Yes -Correct Side, Site, Position Yes Yes -Correct Procedure Yes Yes -Procedure Performed Yes Yes -Type of Procedure Debridement Debridement -Clinical Debridement Subcutaneous Subcutaneous -Tissue Removed Subcutaneous Subcutaneous -Post Debridement (cm) - Length 1.5 1.6 -Post Debridement (cm) - Width 2.0 0.7 -Post Debridement (cm) - Depth 0.1 0.3 -Total Square (Post) (cm) 3.00 1.12 -Area of Debridement (cm) - Length 1.5 1.6 -Area of Debridement (cm) - Width 2.0 0.7 -Total Square (Area) (cm) 3.00 1.12 -Tunneling No No -Undermining/Tunneling No No -Circular Undermining No No -Wound/Ulcer Outcome Not Healed Not Healed -Ulcer Cleansing Rinsed/ Rinsed/ Irrigated with Irrigated with Saline Saline -Foul Odor after Cleansing No No -Bioengineered Tissue No No -Bleeding Controlled with Pressure Pressure -Treatment Response Procedure Procedure Tolerated Well Tolerated Well -Offloading No -Debridement - Subq, 1st 20sq cm No No #13 R Lower extremity cir -Time 11:20 09:25 -Correct Patient Yes Yes -Correct Side, Site, Position Yes Yes -Correct Procedure Yes Yes -Procedure Performed Yes Yes -Type of Procedure Debridement Debridement -Clinical Debridement Subcutaneous Subcutaneous -Tissue Removed Subcutaneous Subcutaneous -Post Debridement (cm) - Length 6.1 9.0 -Post Debridement (cm) - Width 21 20 -Post Debridement (cm) - Depth 0.1 0.1 -Total Square (Post) (cm) 128.1 180.0 -Area of Debridement (cm) - Length 6.1 9.0 -Area of Debridement (cm) - Width 21 20.0 -Total Square (Area) (cm) 128.1 180.00 -Tunneling No No -Undermining/Tunneling No No -Circular Undermining No No -Wound/Ulcer Outcome Not Healed Not Healed -Ulcer Cleansing Rinsed/ Rinsed/ Irrigated with Irrigated with Saline Saline -Foul Odor after Cleansing No No -Bioengineered Tissue No No -Bleeding Controlled with Pressure Pressure -Treatment Response Procedure Procedure Tolerated Well Tolerated Well -Offloading No -Debridement - Subq, 1st 20sq cm Yes Yes -Debridement, SubQ, ea addt'l 20sq cm 6 8 or part thereof 12-left 4th toe -Time 10:30 -Correct Patient Yes No -Correct Side, Site, Position Yes No -Correct Procedure Yes No -Procedure Performed Yes No -Type of Procedure Debridement -Clinical Debridement Subcutaneous -Tissue Removed Subcutaneous -Post Debridement (cm) - Length 0.1 0 -Post Debridement (cm) - Width 0.1 0 -Post Debridement (cm) - Depth 0.1 0 -Total Square (Post) (cm) 0.01 0 -Area of Debridement (cm) - Length 0.1 0 -Area of Debridement (cm) - Width 0.1 0 -Total Square (Area) (cm) 0.01 0 -Tunneling No -Undermining/Tunneling No -Circular Undermining No -Wound/Ulcer Outcome Not Healed Healed- Epithelialized -Ulcer Cleansing Rinsed/ Irrigated with Saline -Foul Odor after Cleansing No -Bioengineered Tissue No -Bleeding Controlled with Pressure -Treatment Response Procedure Tolerated Well -Debridement - Subq, 1st 20sq cm No #10 Left Lower rick -Time 10:30 -Correct Patient Yes No -Correct Side, Site, Position Yes No -Correct Procedure Yes No -Procedure Performed Yes No -Type of Procedure Debridement -Clinical Debridement Subcutaneous -Tissue Removed Subcutaneous -Post Debridement (cm) - Length 0.1 0 -Post Debridement (cm) - Width 0.1 0 -Post Debridement (cm) - Depth 0.1 0 -Total Square (Post) (cm) 0.01 0 -Area of Debridement (cm) - Length 0.1 0 -Area of Debridement (cm) - Width 0.1 0 -Total Square (Area) (cm) 0.01 0 -Tunneling No -Undermining/Tunneling No -Circular Undermining No -Wound/Ulcer Outcome Not Healed Healed- Epithelialized -Ulcer Cleansing Rinsed/ Irrigated with Saline -Foul Odor after Cleansing No -Bioengineered Tissue No -Bleeding Controlled with Pressure -Treatment Response Procedure Tolerated Well -Debridement - Subq, 1st 20sq cm Yes 6-left heel -Time 10:30 11:25 09:25 -Correct Patient Yes Yes Yes -Correct Side, Site, Position Yes Yes Yes -Correct Procedure Yes Yes Yes -Procedure Performed Yes Yes Yes -Type of Procedure Debridement Debridement Debridement -Clinical Debridement Subcutaneous Subcutaneous Subcutaneous -Tissue Removed Subcutaneous Subcutaneous Subcutaneous -Post Debridement (cm) - Length 0.5 0.5 0.2 -Post Debridement (cm) - Width 0.6 0.4 0.2 -Post Debridement (cm) - Depth 0.2 0.1 0.1 -Total Square (Post) (cm) 0.30 0.20 0.04 -Area of Debridement (cm) - Length 0.5 0.5 0.2 -Area of Debridement (cm) - Width 0.6 0.4 0.2 -Total Square (Area) (cm) 0.30 0.20 0.04 -Tunneling No No No -Undermining/Tunneling No No No -Circular Undermining No No No -Wound/Ulcer Outcome Not Healed Not Healed Not Healed -Ulcer Cleansing Rinsed/ Rinsed/ Rinsed/ Irrigated with Irrigated with Irrigated with Saline Saline Saline -Foul Odor after Cleansing No No No -Bioengineered Tissue No No No -Bleeding Controlled with Pressure Pressure Pressure -Treatment Response Procedure Procedure Procedure Tolerated Well Tolerated Well Tolerated Well -Offloading Yes -Type of Offloading Surgical Shoe -Debridement - Subq, 20sq cm No No No Pain Scale: 0-10 Numeric Is Patient Pain Free? Yes Yes Yes 09/28/21 12:24 Wound Center Nurse 2 14 left medial heel -Time -Correct Patient -Correct Side, Site, Position -Correct Procedure -Procedure Performed -Type of Procedure -Clinical Debridement -Tissue Removed -Post Debridement (cm) - Length -Post Debridement (cm) - Width -Post Debridement (cm) - Depth -Total Square (Post) (cm) -Area of Debridement (cm) - Length -Area of Debridement (cm) - Width -Total Square (Area) (cm) -Tunneling -Undermining/Tunneling -Circular Undermining -Wound/Ulcer Outcome -Ulcer Cleansing -Foul Odor after Cleansing -Bioengineered Tissue -Bleeding Controlled with -Treatment Response -Offloading -Debridement - Subq, 1st 20sq cm #13 R Lower extremity cir -Time -Correct Patient -Correct Side, Site, Position -Correct Procedure -Procedure Performed No -Type of Procedure -Clinical Debridement -Tissue Removed -Post Debridement (cm) - Length -Post Debridement (cm) - Width -Post Debridement (cm) - Depth -Total Square (Post) (cm) -Area of Debridement (cm) - Length -Area of Debridement (cm) - Width -Total Square (Area) (cm) -Tunneling -Undermining/Tunneling -Circular Undermining -Wound/Ulcer Outcome Healed- Epithelialized -Ulcer Cleansing -Foul Odor after Cleansing -Bioengineered Tissue -Bleeding Controlled with -Treatment Response -Offloading -Debridement - Subq, 1st 20sq cm -Debridement, SubQ, ea addt'l 20sq cm or part thereof 12-left 4th toe -Time -Correct Patient -Correct Side, Site, Position -Correct Procedure -Procedure Performed -Type of Procedure -Clinical Debridement -Tissue Removed -Post Debridement (cm) - Length -Post Debridement (cm) - Width -Post Debridement (cm) - Depth -Total Square (Post) (cm) -Area of Debridement (cm) - Length -Area of Debridement (cm) - Width -Total Square (Area) (cm) -Tunneling -Undermining/Tunneling -Circular Undermining -Wound/Ulcer Outcome -Ulcer Cleansing -Foul Odor after Cleansing -Bioengineered Tissue -Bleeding Controlled with -Treatment Response -Debridement - Subq, 1st 20sq cm #10 Left Lower rick -Time -Correct Patient -Correct Side, Site, Position -Correct Procedure -Procedure Performed -Type of Procedure -Clinical Debridement -Tissue Removed -Post Debridement (cm) - Length -Post Debridement (cm) - Width -Post Debridement (cm) - Depth -Total Square (Post) (cm) -Area of Debridement (cm) - Length -Area of Debridement (cm) - Width -Total Square (Area) (cm) -Tunneling -Undermining/Tunneling -Circular Undermining -Wound/Ulcer Outcome -Ulcer Cleansing -Foul Odor after Cleansing -Bioengineered Tissue -Bleeding Controlled with -Treatment Response -Debridement - Subq, 1st 20sq cm 6-left heel -Time 09:59 -Correct Patient Yes -Correct Side, Site, Position Yes -Correct Procedure Yes -Procedure Performed Yes -Type of Procedure Debridement -Clinical Debridement Subcutaneous -Tissue Removed Subcutaneous -Post Debridement (cm) - Length 3.0 -Post Debridement (cm) - Width 3.0 -Post Debridement (cm) - Depth 0.1 -Total Square (Post) (cm) 9.00 -Area of Debridement (cm) - Length 3.0 -Area of Debridement (cm) - Width 3.0 -Total Square (Area) (cm) 9.00 -Tunneling No -Undermining/Tunneling No -Circular Undermining No -Wound/Ulcer Outcome Not Healed -Ulcer Cleansing Rinsed/ Irrigated with Saline -Foul Odor after Cleansing No -Bioengineered Tissue No -Bleeding Controlled with Pressure -Treatment Response Procedure Tolerated Well -Offloading -Type of Offloading -Debridement - Subq, 1st 20sq cm Yes Pain Scale: 0-10 Numeric Is Patient Pain Free? Yes WC - Nurse 3 - General Ulcer D/C NN Start: 08/31/21 10:05 Freq: Status: Active Protocol: Activity Type Activity Date Activity User E-sign Co-sign Detail Recorded Client Recorded Date Recorded By Document 08/31/21 12:20 AK [id number] 08/31/21 12:22 AK Document 08/31/21 12:22 AK [id number] 08/31/21 12:23 AK Document 09/07/21 12:15 KR [id number] 09/07/21 12:16 KR Document 09/11/21 15:20 AK [id number] 09/11/21 15:23 AK Document 09/14/21 09:50 ML [id number] 09/14/21 09:53 ML Document 09/21/21 12:55 BMF [id number] 09/21/21 13:07 BMF Document 09/21/21 13:08 BMF [id number] 09/21/21 13:09 BMF Edit Result 09/21/21 13:08 BMF (1) [id number] 09/22/21 06:40 PL Document 09/26/21 13:25 AK [id number] 09/26/21 13:29 AK Document 09/28/21 10:28 DL [id number] 09/28/21 10:35 DL (1) Bilateral - Multi-Layered Wrap Application => Multi-Layer Comp - => Bilat ($) 08/31/21 08/31/21 09/07/21 12:20 12:22 12:15 Wound Care Nurse 3 14 left medial heel -Ulcer Cleansing Rinsed/ Irrigated with Saline -Foul Odor after Cleansing -Negative Pressure Wound Therapy -Primary Dressing Applied Aquacel AG 4x4, Promogran Samantha Matter -Other Dressing Abd -Primary Dressing Covered/Secured with Dry Gauze & Roll Gauze, Secured with Tape -Aquacel AG 4x4 1 -Promogran Samantha Matter 2 #13 R Lower extremity cir -Ulcer Cleansing -Foul Odor after Cleansing -Negative Pressure Wound Therapy -Primary Dressing Applied -Other Dressing abd pad -Primary Dressing Covered/Secured with Dry Gauze, Secured with Tape -Aquacel AG 4x4 -Promogran Samantha Matter 12-left 4th toe -Ulcer Cleansing Rinsed/ Irrigated with Saline -Foul Odor after Cleansing No -Negative Pressure Wound Therapy N/A -Primary Dressing Applied Aquacel AG 4x4, Promogran Samantha Matter -Primary Dressing Covered/Secured with Dry Gauze & Roll Gauze, Secured with Tape -Aquacel AG 4x4 1 -Promogran Samantha Matter 1 #10 Left Lower rick -Ulcer Cleansing Rinsed/ Irrigated with Saline -Foul Odor after Cleansing No -Negative Pressure Wound Therapy N/A -Other Dressing ABD -Primary Dressing Covered/Secured with Dry Gauze & Roll Gauze, Secured with Tape 6-left heel -Ulcer Cleansing Rinsed/ Rinsed/ Irrigated with Irrigated with Saline Saline -Foul Odor after Cleansing No -Negative Pressure Wound Therapy N/A -Primary Dressing Applied Aquacel AG 4x4, Promogran Samantha Matter -Other Dressing abd pad -Primary Dressing Covered/Secured with Dry Gauze & Secured with Roll Gauze, Tape Secured with Tape -Other Covering -Aquacel AG 4x4 0 -Promogran Samantha Matter 0 Bilateral -Lotion applied to leg before compression wrap -Multi-Layered Wrap Application -Stockings Right -Lotion applied to leg before compression wrap -Multi-Layered Wrap Application -Tubular Bandage Double Layer -Size of Tubigrip Used Size E -Size E ($) 2 Left -Lotion applied to leg before No compression wrap -Compression Wrap Surepress ($) Treatment Response Vital Signs Temperature (97.8 F-99.1 F) Temperature Source Pulse Rate (60-100) Pulse Location Respiratory Rate (12-18) Respiratory rate source Oxygen Delivery Method Blood Pressure (90/60-120/80) Blood Pressure Mean (mm Hg) Source Position Blood Pressure Location Pain Scale: 0-10 Numeric Is Patient Pain Free? Yes Yes Yes WC - Visit Discharge Discharge Condition Stable Stable Ambulatory Status Ambulatory, Walker Walker Transportation Accompanied by Medication Reconcilliation completed & Yes provided to patient/care provider Clinical Summary of Care Provided Yes Facility Type Orders Sent 09/11/21 09/14/21 09/21/21 15:20 09:50 12:55 Wound Care Nurse 3 14 left medial heel -Ulcer Cleansing Rinsed/ Rinsed/ Soap and Water Irrigated with Irrigated with Saline Saline -Foul Odor after Cleansing No -Negative Pressure Wound Therapy N/A -Primary Dressing Applied Aquacel AG 4x4 Aquacel AG 4x4, Promogran Promogran Samantha Matter, Samantha Matter Other -Other Dressing betadine BETADINE PAINT; DRSG PER DL [employer] SOFTWARE DEVELOPER -Primary Dressing Covered/Secured with Dry Gauze & Dry Gauze & Dry Gauze Roll Gauze, Roll Gauze, Secured with Secured with Tape Tape -Aquacel AG 4x4 1 1 -Promogran Samantha Matter 2 1 #13 R Lower extremity cir -Ulcer Cleansing Rinsed/ Rinsed/ Soap and Water Irrigated with Irrigated with Saline Saline -Foul Odor after Cleansing No -Negative Pressure Wound Therapy N/A -Primary Dressing Applied Promogran Aquacel AG 4x4, Aquacel AG 4x4, Samantha Matter Promogran Promogran Samantha Matter Samantha Matter -Other Dressing DRSG PER DL BIZTALK SOFTWARE DEVELOPER -Primary Dressing Covered/Secured with Dry Gauze & Dry Gauze & Roll Gauze, Roll Gauze, Secured with Secured with Tape Tape -Aquacel AG 4x4 0 1 -Promogran Samantha Matter 1 0 0 12-left 4th toe -Ulcer Cleansing -Foul Odor after Cleansing -Negative Pressure Wound Therapy -Primary Dressing Applied -Primary Dressing Covered/Secured with -Aquacel AG 4x4 -Promogran Samantha Matter #10 Left Lower rick -Ulcer Cleansing -Foul Odor after Cleansing -Negative Pressure Wound Therapy -Other Dressing -Primary Dressing Covered/Secured with 6-left heel -Ulcer Cleansing Rinsed/ Rinsed/ Soap and Water Irrigated with Irrigated with Saline Saline -Foul Odor after Cleansing No No No -Negative Pressure Wound Therapy N/A -Primary Dressing Applied Aquacel AG 4x4 Aquacel AG 4x4 Promogran Samantha Matter, Other -Other Dressing betadine BETADINE PAINT -Primary Dressing Covered/Secured with Dry Gauze & Dry Gauze & Roll Gauze, Roll Gauze, Secured with Secured with Tape Tape -Other Covering DRSG PER DL BIZTALK SOFTWARE DEVELOPER -Aquacel AG 4x4 0 0 -Promogran Samantha Matter 0 0 Bilateral -Lotion applied to leg before compression wrap -Multi-Layered Wrap Application -Stockings Right -Lotion applied to leg before No compression wrap -Multi-Layered Wrap Application Multi-Layer Multi-Layer Comp - Bilat ($ Comp - Bilat ($ ) ) -Tubular Bandage -Size of Tubigrip Used -Size E ($) Left -Lotion applied to leg before compression wrap -Compression Wrap Treatment Response Vital Signs Temperature (97.8 F-99.1 F) 97.9 F 98.1 F Temperature Source Temporal Temporal Pulse Rate (60-100) 71 75 Pulse Location Monitor Monitor Respiratory Rate (12-18) 16 Respiratory rate source Observation Oxygen Delivery Method Room Air Blood Pressure (90/60-120/80) 142/68 H 159/69 H Blood Pressure Mean (mm Hg) 92 99 Source Monitor Monitor Position Sitting Blood Pressure Location Left Arm Pain Scale: 0-10 Numeric Is Patient Pain Free? Yes Yes Yes WC - Visit Discharge Discharge Condition Stable Ambulatory Status Ambulatory, Walker Transportation Ambulance Accompanied by [facility] Medication Reconcilliation completed & provided to patient/care provider Clinical Summary of Care Provided Facility Type Orders Sent 09/21/21 09/26/21 09/28/21 13:08 13:25 10:28 Wound Care Nurse 3 14 left medial heel -Ulcer Cleansing Soap and Water Rinsed/ Irrigated with Saline -Foul Odor after Cleansing No No -Negative Pressure Wound Therapy N/A -Primary Dressing Applied Aquacel AG 4x4 Aquacel AG 4x4, Aquacel AG 4x4, Promogran Promogran Samantha Matter Samantha Matter -Other Dressing betadine, Betadine nurses hat -Primary Dressing Covered/Secured with Dry Gauze Dry Gauze & Roll Gauze, Secured with Tape -Aquacel AG 4x4 1 1 -Promogran Samantha Matter 1 #13 R Lower extremity cir -Ulcer Cleansing Soap and Water -Foul Odor after Cleansing No -Negative Pressure Wound Therapy N/A -Primary Dressing Applied Aquacel AG 4x4 -Other Dressing -Primary Dressing Covered/Secured with -Aquacel AG 4x4 0 -Promogran Samantha Matter 12-left 4th toe -Ulcer Cleansing -Foul Odor after Cleansing -Negative Pressure Wound Therapy -Primary Dressing Applied -Primary Dressing Covered/Secured with -Aquacel AG 4x4 -Promogran Samantha Matter #10 Left Lower rick -Ulcer Cleansing -Foul Odor after Cleansing -Negative Pressure Wound Therapy -Other Dressing -Primary Dressing Covered/Secured with 6-left heel -Ulcer Cleansing Soap and Water Rinsed/ Irrigated with Saline -Foul Odor after Cleansing No No -Negative Pressure Wound Therapy N/A -Primary Dressing Applied Aquacel AG 4x4 Aquacel AG 4x4, Aquacel AG 4x4, Promogran Promogran Samantha Matter Samantha Matter -Other Dressing Betadine -Primary Dressing Covered/Secured with Dry Gauze Dry Gauze & Roll Gauze, Secured with Tape -Other Covering betadine -Aquacel AG 4x4 0 0 1 -Promogran Samantha Matter 0 1 Bilateral -Lotion applied to leg before No compression wrap -Multi-Layered Wrap Application Multi-Layer Multi-Layer Multi-Layer Comp - Bilat ($ Comp - Bilat ($ Comp - Bilat ($ ) ) ) -Stockings No Right -Lotion applied to leg before No compression wrap -Multi-Layered Wrap Application -Tubular Bandage -Size of Tubigrip Used -Size E ($) Left -Lotion applied to leg before compression wrap -Compression Wrap Treatment Response Procedure Tolerated Well Vital Signs Temperature (97.8 F-99.1 F) 96.2 F L Temperature Source Temporal Pulse Rate (60-100) 90 Pulse Location Monitor Respiratory Rate (12-18) Respiratory rate source Oxygen Delivery Method Blood Pressure (90/60-120/80) 139/76 H Blood Pressure Mean (mm Hg) 97 Source Monitor Position Blood Pressure Location Pain Scale: 0-10 Numeric Is Patient Pain Free? Yes Yes Yes WC - Visit Discharge Discharge Condition Stable Stable Ambulatory Status Ambulatory Ambulatory, Walker Transportation Private Auto Accompanied by Medication Reconcilliation completed & Yes provided to patient/care provider Clinical Summary of Care Provided Yes Facility Type Home Health Orders Sent Yes Assessment/Plan Assessment/Plan (1) Pressure ulcer of left heel, stage 2: CODE(S): L89.622 - Pressure ulcer of left heel, stage 2 (2) Chronic kidney disease (CKD) stage G3a/A2, moderately decreased glomerular filtration rate (GFR) between 45-59 mL/min/1.73 square meter and albuminuria creatinine ratio between 30-299 mg/g: CODE(S): N18.31 - Chronic kidney disease, stage 3a (3) Pain in left foot: CODE(S): M79.672 - Pain in left foot (4) Type II diabetes mellitus: CODE(S): E11.9 - Type 2 diabetes mellitus without complications QUALIFIERS: Diabetes mellitus skilled nursing insulin use: unspecified skilled nursing insulin use status Diabetes mellitus complication status: with neurologic complications Diabetes mellitus complication detail: with polyneuropathy Qualified Code(s): E11.42 - Type 2 diabetes mellitus with diabetic polyneuropathy (5) Bilateral edema of lower extremity: CODE(S): R60.0 - Localized edema PLAN: Plan This is a 61-year-old female presenting to the wound care center today with stage II pressure ulcer of the left heel. She has history of left heel ulceration with osteomyelitis back in [address] Brown. Following replacement of her hip in January 2021 she subsequently reopened her left plantar heel secondary to placing more pressure at this limb site during her physical therapy and recovery process. Patient seen and evaluated. Ulceration to the left plantar heel demonstrates a pink wound base with scant mixed fibrotic tissue. Ulceration site demonstrates no signs of infection. Wound margins demonstrate scant yellow crusting, maceration, and hyperkeratosis. Ulceration site was sharply debrided as stated in the clinical panel above. This was tolerated well. She has multiple wounds secondary to blister formations to the left and right extremity secondary to edema. These are currently healed and stable with no signs of infection. Left lower extremity dressed with 3M compression wrap. Right leg dressed with 3M compression wrap. I discussed elevating her legs to continue to aid in edema reduction and remaining compliant with her compression dressings. Ulceration site left heel dressed with Betadine, Samantha, Aquacel Ag and dry sterile dressing. Compression wrap applied to the left lower extremity to aid in control of edema. Dressings to be changed daily. She is to continue to offload the left heel. She continues to demonstrate progression in healing status of multiple wounds, with bilateral lower extremity edema well-controlled today. She will return to the wound care center on Saturday for a dressing change to bilateral leg. I discussed with her localized signs of infection. She is to observe for any erythema or redness moving up the leg, malodor to the ulceration site, purulent drainage from the ulceration site, increased pain to the left heel, or if she experiences any nausea, vomiting, fever, chills or other constitutional symptoms that these are signs of a progressing infection and she needs to report to the ED. She voices understanding of this. The following work up and care recommendations were made: Dressing: Samantha and Aquacel Ag-left heel; Adaptic to blister sites with Aquacel Ag and Suprasorb, left leg 3M compression wrap; right lower extremity 3M compression wrap Wash: Soap and water to left heel and bilateral legs Tissue growth optimization: Samantha Offload: Offloading surgical shoe with heel cut out Vascular: Palpable pedal pulses Edema: Elevation of lower extremities and Compression wrap left lower extremity. Double Tubigrip right lower extremity Infection: No localized signs of infection Pain: Patient may take [id number] Tylenol extra strength for pain control Host factors: Diabetes mellitus type 2, history of osteomyelitis left heel I answered all the patient's questions. To return to the wound healing center in 1 week or call sooner if the patient has any questions or concerns. Note: lettrs speech recognition can filling machine operator software was used to create portions of this document. Sound-alike and misspelled words, as well as other can filling machine operator errors may be contained in the documentation.
== END 2021-09-28 23:59 | disposition home or self-care (01) ==
LOC: WC 09:15
PROVIDERS: PCP Family Medicine; Visit Provider Student in an Organized Health Care Education/Training Program
DX: E11.621 Type 2 diabetes mellitus with foot ulcer (principal); L89.622 Pressure ulcer of left heel, stage 2; L97.322 Non-pressure chronic ulcer of left ankle with fat layer exposed; E11.42 Type 2 diabetes mellitus with diabetic polyneuropathy; E11.22 Type 2 diabetes mellitus with diabetic chronic kidney disease; Z79.4 Long term (current) use of insulin; N18.31 Chronic kidney disease, stage 3a; Z96.649 Presence of unspecified artificial hip joint; R60.0 Localized edema; M79.672 Pain in left foot
CPT/HCPCS: 11042; 11045; 29581

== ENCOUNTER 2021-10-26 09:15 | Outpatient (RCR) | payer MEDICARE, MEDICAID, SELFPAY ==
[2021-09-29 00:20] VITALS: BP 139/83; PULSE 73; RESP 16; TEMP 36.8
[2021-10-05 09:09] VITALS: BP 119/70; PULSE 75; TEMP 36.1
--- NOTE | 2021-10-05 09:14 | PN.PCM_ITS ---
History of Present Illness Date of Service: 10/05/21 Chief Complaint: left heel ulcer left ankle ulcer- healed History of Wound: In October 2019, patient had rubbing in shoes while shopping which led to a blister that developed into an ulceration. Patient was then seen by Dewey Amezquita.P.Usha. for wound care. Patient then became infected and was admitted to the hospital. Patient was noted to have OM on MRI. Patient wanted to avoid surgery so a skilled nursing course of appropriate IV antibiotics was the treatment chosen. Patient was also noted to have hyperglycemia and has worked with hospitalist and PCP to try to get better control. Blood sugar levels remain elevated. Patient also had LEAS obtained in the hospital which suggested patient had the proper blood flow to allow healing. 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 Patient has since been seen on a weekly basis in office with progression and regression of wound noted over the weeks. Patient has tried various dressing options including wet to dry and santyl. The most progress was noted with Santyl but patient ran out and was unable to refill due to insurance issues. During which time the wound regressed. She also has an offloading surgical shoe and offloading boot to relieve pressure. Patient care is henceforth being carried out at the wound care center. Patient not currently on any antibiotics. Patient has since began skin graft aplications significant improvement is been noted to her foot overall. Patient has finished epifix graft applications with some very small remaining wound noted to left heel. Patient has new wounds noted to bilateral third digits. The right 3rd digit wound has healed. Her left ankle ulcer remains healed Patient relates that ambulation is getting easier and she is rebuilding her strength slowly. She has not had any worsening of minor remaining heel wound since beginning ambulation again. 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 Her has been helping her change the dressings daily to the left heel. She presents to the wound care center today for continued care of her left heel ulceration. Subjective Subjective This is a 61-year-old female who presents for follow-up to the wound care center for a left heel ulceration and circumferential leg wounds bilateral.? She denies any constitutional symptoms today. She has been performing her dressing changes daily to the heel.? She has been coming to the wound care center for nurse visits for a dressing change and thinks this is helping to decrease her swelling in her legs. She has no further complaints today. Objective Data Objective Data Vital Signs: Vital Signs Temp Pulse Resp BP 98.2 F 73 16 139/83 H 09/29/21 00:20 09/29/21 00:20 09/29/21 00:20 09/29/21 00:20 Physical Exam Const alert, oriented x3 and no apparent distress General Appearance: cooperative and comfortable HEENT normocephalic Eyes General Eye: normal appearance of both eyes Neck General: normal visual inspection Lymph Lymphatic: no lymphadenopathy noted and no lymphedema noted Resp normal respiratory effort Cardio regular rate and regular rhythm Extremity normal capillary refill, no joint enlargement, no calf tenderness and no pedal edema Peripheral Pulses: Yes posterior tibial pulses present bilateral and dorsalis pedis pulses present bilateral Skin no rashes or lesions noted, skin turgor normal and no jaundice Wound Narrative: Right posterior leg abrasion, stable, no local signs of infection.? Right ante rior and anterior medial ulceration secondary to blister formation. No signs of infection. Left lower extremity heel decubitus ulceration.? Ulcerative site demonstrates pink wound base with scant fibrotic tissue throughout the wound bed with serosanguineous drainage and no signs of infection.? No palpable fluctuance noted to the left heel.? Ulcerative site does have hyperkeratotic tissue at the wound margins.? Ulcerative site demonstrates closure centrally with new skin formation. Left lower extremity circumferential wounds secondary to blister formation.? Site is stable no signs of infection. Dorsal abrasions digits 3 and 4 left foot secondary to previous blister formation.?Sites demonstrate no signs of infection. Neuro oriented x3 and moves all extremities Motor Exam: strength 5/5 throughout Assessment/Plan Assessment/Plan (1) Pressure ulcer of left heel, stage 2: CODE(S): L89.622 - Pressure ulcer of left heel, stage 2 (2) Chronic kidney disease (CKD) stage G3a/A2, moderately decreased glomerular filtration rate (GFR) between 45-59 mL/min/1.73 square meter and albuminuria creatinine ratio between 30-299 mg/g: CODE(S): N18.31 - Chronic kidney disease, stage 3a (3) Pain in left foot: CODE(S): M79.672 - Pain in left foot (4) Type II diabetes mellitus: CODE(S): E11.9 - Type 2 diabetes mellitus without complications QUALIFIERS: Diabetes mellitus complication detail: with polyneuropathy Diabetes mellitus complication status: with neurologic complications Diabetes mellitus skilled nursing insulin use: unspecified buttermilk drier operator insulin use status Qualified Code(s): E11.42 - Type 2 diabetes mellitus with diabetic polyneuropathy (5) Bilateral edema of lower extremity: CODE(S): R60.0 - Localized edema PLAN: Plan Patient seen and evaluated. Ulceration to the left plantar heel demonstrates a pink wound base with scant mixed fibrotic tissue. Ulceration site demonstrates no signs of infection.? Wound margins demonstrate scant yellow crusting, maceration, and hyperkeratosis.? Ulceration site was sharply debrided as stated in the clinical panel above. This was tolerated well. I applied epi fix graft #1 to the plantar left heel. Site anchored with wound veil and Steri-Strips. She has multiple wounds secondary to blister formations to the left and right extremity secondary to edema.? These are currently healed and stable with no signs of infection. Left lower extremity dressed with 3M compression wrap.? Right leg dressed with 3M compression wrap. I discussed elevating her legs to continue to aid in edema reduction and remaining compliant with her compression dressings. She continues to demonstrate progression in healing status of multiple wounds, with bilateral lower extremity edema well-controlled today. She will return to the wound care center on Saturday? for a dressing change to bilateral leg. I discussed with her localized signs of infection.? She is to observe for any erythema or redness moving up the leg, malodor to the ulceration site, purulent drainage from the ulceration site, increased pain to the left heel, or if she experiences any nausea, vomiting, fever, chills or other constitutional symptoms that these are signs of a progressing infection and she needs to report to the ED.? She voices understanding of this. The following work up and care recommendations were made: Dressing: Epi fix graft left heel; Adaptic to blister sites with Aquacel Ag and Suprasorb, left leg 3M compression wrap; right lower extremity 3M compression wrap Wash: Do not get wet Tissue growth optimization: Epi fix Offload: Offloading surgical shoe with heel cut out Vascular: Palpable pedal pulses Edema: Elevation of lower extremities and Compression wrap left lower extremity.? 3M compression wrap bilateral legs Infection: No localized signs of infection Pain: Patient may take [id number] Tylenol extra strength for pain control Host factors: Diabetes mellitus type 2, history of osteomyelitis left heel ? I answered all the patient's questions.? To return to the wound healing center in 1 week or call sooner if the patient has any questions or concerns. ? Note: [employer] speech recognition loading dock helper software was used to create portions of this document. Sound-alike and misspelled words, as well as other loading dock helper errors may be contained in the documentation.
[2021-10-10 11:46] VITALS: BP 128/75; PULSE 82; TEMP 35.9
[2021-10-12 09:12] VITALS: BP 121/72; PULSE 80; TEMP 36.3
--- NOTE | 2021-10-12 12:48 | PN.PCM_ITS ---
History of Present Illness Date of Service: 10/12/21 Chief Complaint: left heel ulcer left ankle ulcer- healed History of Wound: In October 2019, patient had rubbing in shoes while shopping which led to a blister that developed into an ulceration. Patient was then seen by Dewey Amezquita.P.M. for wound care. Patient then became infected and was admitted to the hospital. Patient was noted to have OM on MRI. Patient wanted to avoid surgery so a extermination supervisor course of appropriate IV antibiotics was the treatment chosen. Patient was also noted to have hyperglycemia and has worked with hospitalist and PCP to try to get better control. Blood sugar levels remain elevated. Patient also had LEAS obtained in the hospital which suggested patient had the proper blood flow to allow healing. Patient has since finished extermination supervisor course of antibiotics. Patient has since been seen on a weekly basis in office with progression and regression of wound noted over the weeks. Patient has tried various dressing options including wet to dry and santyl. The most progress was noted with Santyl but patient ran out and was unable to refill due to insurance issues. During which time the wound regressed. She also has an offloading surgical shoe and offloading boot to relieve pressure. Patient care is henceforth being carried out at the wound care center. Patient not currently on any antibiotics. Patient has since began skin graft aplications significant improvement is been noted to her foot overall. Patient has finished epifix graft applications with some very small remaining wound noted to left heel. Patient has new wounds noted to bilateral third digits. The right 3rd digit wound has healed. Her left ankle ulcer remains healed Patient relates that ambulation is getting easier and she is rebuilding her strength slowly. She has not had any worsening of minor remaining heel wound since beginning ambulation again. 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 Her has been helping her change the dressings daily to the left heel. She presents to the wound care center today for continued care of her left heel ulceration. Subjective Subjective This is a 61-year-old female who presents for follow-up to the wound care center for a left heel ulceration and circumferential leg wounds bilateral.? She denies any constitutional symptoms today. She has been performing her dressing changes daily to the heel.? She has been coming to the wound care center for nurse visits to perform dressing changes and thinks this is helping to decrease her swelling in her legs. She has no further complaints today. Objective Data Objective Data Vital Signs: Vital Signs Temp Pulse Resp BP 97.4 F L 80 16 121/72 H 10/12/21 09:12 10/12/21 09:12 09/29/21 00:20 10/12/21 09:12 Physical Exam Const alert, oriented x3 and no apparent distress General Appearance: cooperative and comfortable HEENT normocephalic Eyes General Eye: normal appearance of both eyes Neck General: normal visual inspection Lymph Lymphatic: no lymphadenopathy noted and no lymphedema noted Resp normal respiratory effort Cardio regular rate and regular rhythm Extremity normal capillary refill, no joint enlargement, no calf tenderness and no pedal edema Skin no rashes or lesions noted, skin turgor normal and no jaundice Wound Narrative: Right posterior leg abrasion, stable, no local signs of infection.? Right anterior and anterior medial ulceration secondary to blister formation. No signs of infection. Left lower extremity heel decubitus ulceration.? Ulcerative site demonstrates pink wound base with scant fibrotic tissue throughout the wound bed with serosanguineous drainage and no signs of infection.? No palpable fluctuance noted to the left heel.? Ulcerative site does have hyperkeratotic tissue at the wound margins.? Ulcerative site demonstrates closure centrally with new skin formation. Left lower extremity circumferential wounds secondary to blister formation.? Site is stable no signs of infection. Dorsal abrasions digits 3 and 4 left foot secondary to previous blister formation.?Sites demonstrate no signs of infection. Neuro oriented x3 and moves all extremities Motor Exam: strength 5/5 throughout Debridement Note Debridement Note Wound debrided: Plantar left heel Laterality: Left Wound Grade/Stage: Glasgow stage II Type of Debridement: Excisional debridement Anesthesia Used: 5% Lidocaine Gel Depth: Down to and including healthy tissue and in the subcutaneous layer Percentage of wound debrided: 100 Instrument Used: 3mm curette Tissue Removed: Fibrous, devitalized subcutaneous, biofilm, slough Severity: Fat Layer Exposed Amount of bleeding with debridement: Mild Bleeding Controlled with: Compression and gauze Patient tolerated procedure: Patient tolerated procedure well Post-Debridement Measurements and Additional Note: Post-Debridement Measurements/Treatment SAMARIA - Nurse 1 - General Ulcer Assessment Start: 10/05/21 09:09 Freq: Status: Active Protocol: WC.LOWEXT Activity Type Activity Date Activity User E-sign Co-sign Detail Recorded Client Recorded Date Recorded By Document 10/05/21 09:09 KR [id number] 10/05/21 09:15 KR Document 10/10/21 11:46 KR [id number] 10/10/21 11:48 KR Document 10/12/21 09:12 KR [id number] 10/12/21 09:17 KR 10/05/21 10/10/21 10/12/21 09:09 11:46 09:12 - Today's Visit Information Type of service Follow-up Visit Nurse-only Follow-up Visit (Physician/MEDICAL APPARATUS MODEL MAKER Visit (Physician/MEDICAL APPARATUS MODEL MAKER ) ) Arrival Mode Walker Ambulatory, Ambulatory, Walker Walker Patient Identification Verified (Name & Yes Yes Yes ) Vital Signs Temperature (97.8 F-99.1 F) 97.0 F L 96.7 F L 97.4 F L Temperature Source Temporal Temporal Temporal Pulse Rate (60-100) 75 82 80 Pulse Location Monitor Monitor Monitor Blood Pressure (90/60-120/80) 119/70 128/75 H 121/72 H Blood Pressure Mean (mm Hg) 86 92 88 Source Monitor Monitor Monitor Position Sitting Semi-Fowlers Semi-Fowlers Blood Pressure Location Right Arm Left Arm Left Arm History Since Last Visit- (Skip if this is Patient's initial visit) Have you changed medications since your No No No last visit? Any new allergies or adverse reactions No No No Had a fall/change in ADL's that may No No No increase risk of falls Signs or symptoms of abuse and/or No No No neglect since last visit Have you been in the hospital since your No No No last visit? Has dressing in place as prescribed Yes Yes Yes Has compression in place as prescribed Yes Yes Yes Has offloadiing in place as prescribed N/A N/A N/A Experienced any changes in pain level or No No No management Left Footwear Regular Shoe Regular Shoe Right Footwear Regular Shoe Regular Shoe Pain Scale: 0-10 Numeric Is Patient Pain Free? Yes Yes Yes - Nurse 1 - General Ulcer Measurement Start: 10/05/21 09:09 Freq: Status: Active Protocol: Activity Type Activity Date Activity User E-sign Co-sign Detail Recorded Client Recorded Date Recorded By Document 10/05/21 09:09 KR [id number] 10/05/21 09:15 KR Document 10/12/21 09:12 KR [id number] 10/12/21 09:17 KR 10/05/21 10/12/21 09:09 09:12 Wound Center Nurse 1 6-left heel -Current Size (cm) - Length 2.6 3.4 -Current Size (cm) - Width 3 2.5 -Current Size (cm) - Depth 0.1 0.1 -Total Square Cm 7.8 8.50 -Exudate Amt Small Small -Exudate Type Serosanguineous Serosanguineous -Wound Margin Distinct, Distinct, Outline Outline Attached Attached -Granulation Amt Medium (34-66%) Medium (34-66%) -Granulation Quality [place] Pale,[place] -Necrosis Amt Medium (34-66%) None Present (0 %) -Necrotic Tissue Type Adherent Slough -Texture (Bren-wound Skin Appearance) Assessed, Assessed, Scarring Scarring -Moisture (Bren-wound Skin Appearance) No Abnormality, No Abnormality, Assessed Assessed, Maceration -Color (Bren-wound Skin Appearance) No Abnormality, No Abnormality, Assessed Assessed -Temperature (Bren-wound Skin No Abnormality No Abnormality Appearance) (Pt Warm) (Pt Warm) -Tenderness on Palpation (Bren-wound No No Skin Appearance) -Ulcer Cleansing Rinsed/ Soap and Water Irrigated with Saline -Foul Odor after Cleansing No No -Anesthetic Used 4% Lidocaine 5% Lidocaine Solution Gel Right Calf (cm) 37 Right Ankle (cm) 24 Left Calf (cm) 38 Left Ankle (cm) 24 WC - Nurse 2 - General Ulcer CM Notes Start: 10/05/21 09:09 Freq: Status: Active Protocol: Activity Type Activity Date Activity User E-sign Co-sign Detail Recorded Client Recorded Date Recorded By Document 10/05/21 09:32 PL [id number] 10/05/21 09:34 PL Document 10/12/21 12:36 PL [id number] 10/12/21 12:38 PL 10/05/21 10/12/21 09:32 12:36 Wound Center Nurse 2 6-left heel -Time 09:21 09:58 -Correct Patient Yes Yes -Correct Side, Site, Position Yes Yes -Correct Procedure Yes Yes -Procedure Performed Yes Yes -Type of Procedure Debridement Debridement -Clinical Debridement Subcutaneous Subcutaneous -Tissue Removed Subcutaneous Subcutaneous -Post Debridement (cm) - Length 2.6 3.4 -Post Debridement (cm) - Width 3.0 2.5 -Post Debridement (cm) - Depth 0.1 0.1 -Total Square (Post) (cm) 7.80 8.50 -Area of Debridement (cm) - Length 2.6 3.4 -Area of Debridement (cm) - Width 3.0 2.5 -Total Square (Area) (cm) 7.80 8.50 -Tunneling No No -Undermining/Tunneling No No -Circular Undermining No No -Wound/Ulcer Outcome Not Healed Not Healed -Ulcer Cleansing Rinsed/ Rinsed/ Irrigated with Irrigated with Saline Saline -Foul Odor after Cleansing No No -Bioengineered Tissue Yes Yes -Type of Bioengineered Tissue Epifix Epifix -Expiration Date 05/30/26 05/30/26 -Product Lot Number [id number] -Percent Used 100 100 -Bleeding Controlled with Pressure Pressure -Treatment Response Procedure Procedure Tolerated Well Tolerated Well -Debridement - Subq, 1st 20sq cm No No -Apply Skin Sub - 1st 25 sq cm - Feet 1 1 -Epifix (per sq cm) 4 4 Pain Scale: 0-10 Numeric Is Patient Pain Free? Yes Yes - Nurse 3 - General Ulcer D/C NN Start: 10/05/21 09:09 Freq: Status: Active Protocol: Activity Type Activity Date Activity User E-sign Co-sign Detail Recorded Client Recorded Date Recorded By Document 10/05/21 11:26 ELIO [id number] 10/05/21 11:27 KR Document 10/10/21 11:46 KR [id number] 10/10/21 11:48 KR Document 10/12/21 11:46 AK [id number] 10/12/21 11:47 AK 10/05/21 10/10/21 10/12/21 11:26 11:46 11:46 Wound Care Nurse 3 6-left heel -Ulcer Cleansing Rinsed/ Not Cleansed Irrigated with Saline -Foul Odor after Cleansing No -Negative Pressure Wound Therapy N/A -Primary Dressing Applied NonAdherent Contact Layer -Other Dressing ABD pad nurses hat -Primary Dressing Covered/Secured with Dry Gauze, Dry Gauze, Secured with Secured with Secured with Tape Tape Tape Left -Lotion applied to leg before No compression wrap -Multi-Layered Wrap Application Multi-Layer Multi-Layer Multi-Layer Comp - Bilat ($ Comp - Bilat ($ Comp - Left ($) ) ) Vital Signs Temperature (97.8 F-99.1 F) 96.7 F L Temperature Source Temporal Pulse Rate (60-100) 82 Pulse Location Monitor Blood Pressure (90/60-120/80) 128/75 H Blood Pressure Mean (mm Hg) 92 Source Monitor Position Semi-Fowlers Blood Pressure Location Left Arm Pain Scale: 0-10 Numeric Is Patient Pain Free? Yes Yes Yes WC - Visit Discharge Discharge Condition Stable Stable Stable Ambulatory Status Ambulatory, Ambulatory, Walker Walker Transportation Private Auto Private Auto Private Auto Medication Reconcilliation completed & Yes provided to patient/care provider Clinical Summary of Care Provided Yes Assessment/Plan Assessment/Plan (1) Pressure ulcer of left heel, stage 2: CODE(S): L89.622 - Pressure ulcer of left heel, stage 2 (2) Chronic kidney disease (CKD) stage G3a/A2, moderately decreased glomerular filtration rate (GFR) between 45-59 mL/min/1.73 square meter and albuminuria creatinine ratio between 30-299 mg/g: CODE(S): N18.31 - Chronic kidney disease, stage 3a (3) Pain in left foot: CODE(S): M79.672 - Pain in left foot (4) Type II diabetes mellitus: CODE(S): E11.9 - Type 2 diabetes mellitus without complications QUALIFIERS: Diabetes mellitus shelter insulin use: unspecified extermination supervisor insulin use status Diabetes mellitus complication status: with neurologic complications Diabetes mellitus complication detail: with polyneuropathy Qualified Code(s): E11.42 - Type 2 diabetes mellitus with diabetic polyneuropathy (5) Bilateral edema of lower extremity: CODE(S): R60.0 - Localized edema PLAN: Plan Patient seen and evaluated. Ulceration to the left plantar heel demonstrates a pink wound base with scant mixed fibrotic tissue. Ulceration site demonstrates no signs of infection.? Wound margins demonstrate scant yellow crusting.? Ulceration site was sharply debrided as stated in the clinical panel above. This was tolerated well. I applied epi fix graft #2 to the plantar left heel. Site anchored with Adaptic touch and Steri-Strips. She has multiple wounds secondary to blister formations to the left and right extremity secondary to edema.? These are currently healed and stable with no signs of infection. Left lower extremity dressed with 3M compression wrap.? Right leg dressed with 3M compression wrap. I discussed elevating her legs to continue to aid in edema reduction and remaining compliant with her compression dressings. She continues to demonstrate progression in healing status of multiple wounds, with bilateral lower extremity edema well-controlled today. She will return to the wound care center on Saturday?for a dressing change to bilateral leg. I discussed with her localized signs of infection.? She is to observe for any erythema or redness moving up the leg, malodor to the ulceration site, purulent drainage from the ulceration site, increased pain to the left heel, or if she experiences any nausea, vomiting, fever, chills or other constitutional symptoms that these are signs of a progressing infection and she needs to report to the ED.? She voices understanding of this. The following work up and care recommendations were made: Dressing: Epi fix graft left heel; Adaptic to blister sites with Aquacel Ag and Suprasorb, left leg 3M compression wrap; right lower extremity 3M compression wrap Wash: Do not get wet Tissue growth optimization: Epi fix Offload: Offloading surgical shoe with heel cut out Vascular: Palpable pedal pulses Edema: Elevation of lower extremities and Compression wrap left lower extremity.? 3M compression wrap bilateral legs Infection: No localized signs of infection Pain: Patient may take [id number] Tylenol extra strength for pain control Host factors: Diabetes mellitus type 2, history of osteomyelitis left heel ? I answered all the patient's questions.? To return to the wound healing center in 1 week or call sooner if the patient has any questions or concerns. ? Note: [employer] speech recognition precision honer software was used to create portions of this document. Sound-alike and misspelled words, as well as other precision honer errors may be contained in the documentation.
[2021-10-17 10:21] VITALS: BP 86/53; PULSE 78; TEMP 36.4
[2021-10-19 09:16] VITALS: BP 150/74; PULSE 86; TEMP 35.9
--- NOTE | 2021-10-19 12:48 | PCM.WC.PN ---
History of Present Illness Date of Service: 10/19/21 Chief Complaint: left heel ulcer left ankle ulcer- healed History of Wound: In October 2019, patient had rubbing in shoes while shopping which led to a blister that developed into an ulceration. Patient was then seen by Dewey Amezquita.P.M. for wound care. Patient then became infected and was admitted to the hospital. Patient was noted to have OM on MRI. Patient wanted to avoid surgery so a terminal supervisor course of appropriate IV antibiotics was the treatment chosen. Patient was also noted to have hyperglycemia and has worked with hospitalist and PCP to try to get better control. Blood sugar levels remain elevated. Patient also had LEAS obtained in the hospital which suggested patient had the proper blood flow to allow healing. 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 Patient has since been seen on a weekly basis in office with progression and regression of wound noted over the weeks. Patient has tried various dressing options including wet to dry and santyl. The most progress was noted with Santyl but patient ran out and was unable to refill due to insurance issues. During which time the wound regressed. She also has an offloading surgical shoe and offloading boot to relieve pressure. Patient care is henceforth being carried out at the wound care center. Patient not currently on any antibiotics. Patient has since began skin graft aplications significant improvement is been noted to her foot overall. Patient has finished epifix graft applications with some very small remaining wound noted to left heel. Patient has new wounds noted to bilateral third digits. The right 3rd digit wound has healed. Her left ankle ulcer remains healed Patient relates that ambulation is getting easier and she is rebuilding her strength slowly. She has not had any worsening of minor remaining heel wound since beginning ambulation again. 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 Her has been helping her change the dressings daily to the left heel. She presents to the wound care center today for continued care of her left heel ulceration. Subjective Subjective This is a 61-year-old female who presents for follow-up to the wound care center for a left heel ulceration and circumferential leg wounds bilateral.? She denies any constitutional symptoms today. She has been changing her outer layer dressings daily to the heel.? She has been coming to the wound care center for nurse visits to perform dressing changes. She admits to a little more swelling in the right leg today with a small blister that ruptured. She has no further complaints today. Objective Data Objective Data Vital Signs: Vital Signs Temp Pulse Resp BP 96.7 F L 86 16 150/74 H 10/19/21 09:16 10/19/21 09:16 09/29/21 00:20 10/19/21 09:16 Physical Exam Const alert, oriented x3 and no apparent distress General Appearance: cooperative and comfortable HEENT normocephalic Eyes General Eye: normal appearance of both eyes Neck General: normal visual inspection Lymph Lymphatic: no lymphadenopathy noted and no lymphedema noted Resp normal respiratory effort Cardio regular rate and regular rhythm Extremity normal capillary refill, no joint enlargement, no calf tenderness and no pedal edema Skin no rashes or lesions noted, skin turgor normal and no jaundice Wound Narrative: Right posterior leg abrasion, stable, no local signs of infection.? Right anterior and anterior medial ulceration secondary to blister formation. No signs of infection. Left lower extremity heel decubitus ulceration.? Ulcerative site demonstrates pink wound base with scant fibrotic tissue throughout the wound bed with serosanguineous drainage and no signs of infection.? No palpable fluctuance noted to the left heel.? Ulcerative site does have hyperkeratotic tissue at the wound margins.? Ulcerative site demonstrates closure centrally with new skin formation. Left lower extremity circumferential wounds secondary to blister formation.? Site is stable no signs of infection. Dorsal abrasions digits 3 and 4 left foot secondary to previous blister formation.?Sites demonstrate no signs of infection. Neuro oriented x3 and moves all extremities Motor Exam: strength 5/5 throughout Debridement Note Debridement Note Wound debrided: Left heel Laterality: Left Wound Grade/Stage: Glasgow stage II Type of Debridement: Excisional debridement Anesthesia Used: 5% Lidocaine Gel Depth: Down to and including healthy tissue and in the subcutaneous layer Percentage of wound debrided: 100 Instrument Used: 3mm curette Tissue Removed: Fibrous, devitalized subcutaneous, biofilm, slough Severity: Fat Layer Exposed Amount of bleeding with debridement: Mild Bleeding Controlled with: Pressure Patient tolerated procedure: Patient tolerated procedure well Post-Debridement Measurements and Additional Note: Post-Debridement Measurements/Treatment WC - Nurse 1 - General Ulcer Assessment Start: 07/07/22 09:09 Freq: Status: Active Protocol: WC.LOWEXT Activity Type Activity Date Activity User E-sign Co-sign Detail Recorded Client Recorded Date Recorded By Document 10/05/21 09:09 ELIO [id number] 10/05/21 09:15 KR Document 10/10/21 11:46 KR [id number] 10/10/21 11:48 KR Document 10/12/21 09:12 KR [id number] 10/12/21 09:17 KR Document 10/17/21 10:21 KR [id number] 10/17/21 10:22 KR Document 10/19/21 09:16 AK [id number] 10/19/21 09:18 AK 10/05/21 10/10/21 10/12/21 09:09 11:46 09:12 - Today's Visit Information Type of service Follow-up Visit Nurse-only Follow-up Visit (Physician/DOMESTIC HOUSEKEEPER Visit (Physician/DOMESTIC HOUSEKEEPER ) ) Arrival Mode Walker Ambulatory, Ambulatory, Walker Walker Patient Identification Verified (Name & Yes Yes Yes ) Patient Requires Transmission-Based Precautions Safety Precautions Vital Signs Temperature (97.8 F-99.1 F) 97.0 F L 96.7 F L 97.4 F L Temperature Source Temporal Temporal Temporal Pulse Rate (60-100) 75 82 80 Pulse Location Monitor Monitor Monitor Blood Pressure (90/60-120/80) 119/70 128/75 H 121/72 H Blood Pressure Mean (mm Hg) 86 92 88 Source Monitor Monitor Monitor Position Sitting Semi-Fowlers Semi-Fowlers Blood Pressure Location Right Arm Left Arm Left Arm History Since Last Visit- (Skip if this is Patient's initial visit) Have you changed medications since your No No No last visit? Any new allergies or adverse reactions No No No Had a fall/change in ADL's that may No No No increase risk of falls Signs or symptoms of abuse and/or No No No neglect since last visit Have you been in the hospital since your No No No last visit? Has dressing in place as prescribed Yes Yes Yes Has compression in place as prescribed Yes Yes Yes Has offloadiing in place as prescribed N/A N/A N/A Experienced any changes in pain level or No No No management Left Footwear Regular Shoe Regular Shoe Right Footwear Regular Shoe Regular Shoe Pain Scale: 0-10 Numeric Is Patient Pain Free? Yes Yes Yes 10/17/21 10/19/21 10:21 09:16 WC - Today's Visit Information Type of service Nurse-only Follow-up Visit Visit (Physician/DOMESTIC HOUSEKEEPER ) Arrival Mode Ambulatory, Ambulatory Walker Patient Identification Verified (Name & Yes Yes ) Patient Requires Transmission-Based No Precautions Safety Precautions NA Vital Signs Temperature (97.8 F-99.1 F) 97.6 F L 96.7 F L Temperature Source Temporal Temporal Pulse Rate (60-100) 78 86 Pulse Location Monitor Monitor Blood Pressure (90/60-120/80) 86/53 L 150/74 H Blood Pressure Mean (mm Hg) 64 99 Source Monitor Monitor Position Semi-Fowlers Blood Pressure Location Right Arm History Since Last Visit- (Skip if this is Patient's initial visit) Have you changed medications since your No No last visit? Any new allergies or adverse reactions No No Had a fall/change in ADL's that may No No increase risk of falls Signs or symptoms of abuse and/or No No neglect since last visit Have you been in the hospital since your No No last visit? Has dressing in place as prescribed Yes Yes Has compression in place as prescribed Yes Yes Has offloadiing in place as prescribed N/A N/A Experienced any changes in pain level or No No management Left Footwear Slipper Slipper Right Footwear Slipper Slipper Pain Scale: 0-10 Numeric Is Patient Pain Free? Yes Yes - Nurse 1 - General Ulcer Measurement Start: 10/05/21 09:09 Freq: Status: Active Protocol: Activity Type Activity Date Activity User E-sign Co-sign Detail Recorded Client Recorded Date Recorded By Document 10/05/21 09:09 ELIO [id number] 10/05/21 09:15 KR Document 10/12/21 09:12 KR [id number] 10/12/21 09:17 KR Document 10/19/21 09:16 AK [id number] 10/19/21 09:18 AK 10/05/21 10/12/21 10/19/21 09:09 09:12 09:16 Wound Center Nurse 1 6-left heel -Combined with other wound No -Current Size (cm) - Length 2.6 3.4 2.9 -Current Size (cm) - Width 3 2.5 2.5 -Current Size (cm) - Depth 0.1 0.1 0.1 -Total Square Cm 7.8 8.50 7.25 -Date of Last Picture (Recall this 10/19/21 field) -Photo Taken Yes -Tunneling No -Undermining/Tunneling No -Circular Undermining No -Change in Wound Grade/Stage No -Exudate Amt Small Small Medium -Exudate Type Serosanguineous Serosanguineous Serosanguineous -Wound Margin Distinct, Distinct, Distinct, Outline Outline Outline Attached Attached Attached -Granulation Amt Medium (34-66%) Medium (34-66%) Small (1-33%) -Granulation Quality [place] Pale,[place] N/A -Slough/Fibrin Yes -Necrosis Amt Medium (34-66%) None Present (0 Medium (34-66%) %) -Necrotic Tissue Type Adherent Slough Adherent Slough -Structure Exposed N/A -Texture (Bren-wound Skin Appearance) Assessed, Assessed, No Abnormality, Scarring Scarring Assessed -Moisture (Bren-wound Skin Appearance) No Abnormality, No Abnormality, Assessed, Assessed Assessed, Maceration Maceration -Color (Bren-wound Skin Appearance) No Abnormality, No Abnormality, Assessed, Assessed Assessed Erythema -Temperature (Bren-wound Skin No Abnormality No Abnormality No Abnormality Appearance) (Pt Warm) (Pt Warm) (Pt Warm) -Tenderness on Palpation (Bren-wound No No No Skin Appearance) -Ulcer Cleansing Rinsed/ Soap and Water Rinsed/ Irrigated with Irrigated with Saline Saline -Foul Odor after Cleansing No No No -Anesthetic Used 4% Lidocaine 5% Lidocaine 5% Lidocaine Solution Gel Gel Right Calf (cm) 37 Right Ankle (cm) 24 Left Calf (cm) 38 34 Left Ankle (cm) 24 24 WC - Nurse 2 - General Ulcer CM Notes Start: 10/05/21 09:09 Freq: Status: Active Protocol: Activity Type Activity Date Activity User E-sign Co-sign Detail Recorded Client Recorded Date Recorded By Document 10/05/21 09:32 PL [id number] 10/05/21 09:34 PL Document 10/12/21 12:36 PL [id number] 10/12/21 12:38 PL 10/05/21 10/12/21 09:32 12:36 Wound Center Nurse 2 6-left heel -Time 09:21 09:58 -Correct Patient Yes Yes -Correct Side, Site, Position Yes Yes -Correct Procedure Yes Yes -Procedure Performed Yes Yes -Type of Procedure Debridement Debridement -Clinical Debridement Subcutaneous Subcutaneous -Tissue Removed Subcutaneous Subcutaneous -Post Debridement (cm) - Length 2.6 3.4 -Post Debridement (cm) - Width 3.0 2.5 -Post Debridement (cm) - Depth 0.1 0.1 -Total Square (Post) (cm) 7.80 8.50 -Area of Debridement (cm) - Length 2.6 3.4 -Area of Debridement (cm) - Width 3.0 2.5 -Total Square (Area) (cm) 7.80 8.50 -Tunneling No No -Undermining/Tunneling No No -Circular Undermining No No -Wound/Ulcer Outcome Not Healed Not Healed -Ulcer Cleansing Rinsed/ Rinsed/ Irrigated with Irrigated with Saline Saline -Foul Odor after Cleansing No No -Bioengineered Tissue Yes Yes -Type of Bioengineered Tissue Epifix Epifix -Expiration Date 05/30/26 05/30/26 -Product Lot Number [id number] -Percent Used 100 100 -Bleeding Controlled with Pressure Pressure -Treatment Response Procedure Procedure Tolerated Well Tolerated Well -Debridement - Subq, 1st 20sq cm No No -Apply Skin Sub - 1st 25 sq cm - Feet 1 1 -Epifix (per sq cm) 4 4 Pain Scale: 0-10 Numeric Is Patient Pain Free? Yes Yes - Nurse 3 - General Ulcer D/C NN Start: 10/05/21 09:09 Freq: Status: Active Protocol: Activity Type Activity Date Activity User E-sign Co-sign Detail Recorded Client Recorded Date Recorded By Document 10/05/21 11:26 KR [id number] 10/05/21 11:27 KR Document 10/10/21 11:46 KR [id number] 10/10/21 11:48 KR Document 10/12/21 11:46 AK [id number] 10/12/21 11:47 AK Document 10/17/21 10:22 KR [id number] 10/17/21 10:22 KR Edit Result 10/17/21 10:22 KR (1) [id number] 10/18/21 07:15 PL Document 10/19/21 10:20 AK [id number] 10/19/21 10:21 AK (1) Left - Multi-Layered Wrap Application => Multi-Layer Comp - => Left ($) 10/05/21 10/10/21 10/12/21 11:26 11:46 11:46 Wound Care Nurse 3 6-left heel -Ulcer Cleansing Rinsed/ Not Cleansed Irrigated with Saline -Foul Odor after Cleansing No -Negative Pressure Wound Therapy N/A -Primary Dressing Applied NonAdherent Contact Layer -Other Dressing ABD pad nurses hat -Primary Dressing Covered/Secured with Dry Gauze, Dry Gauze, Secured with Secured with Secured with Tape Tape Tape bilateral -Lotion applied to leg before compression wrap -Multi-Layered Wrap Application Left -Lotion applied to leg before No compression wrap -Multi-Layered Wrap Application Multi-Layer Multi-Layer Multi-Layer Comp - Bilat ($ Comp - Bilat ($ Comp - Left ($) ) ) Vital Signs Temperature (97.8 F-99.1 F) 96.7 F L Temperature Source Temporal Pulse Rate (60-100) 82 Pulse Location Monitor Blood Pressure (90/60-120/80) 128/75 H Blood Pressure Mean (mm Hg) 92 Source Monitor Position Semi-Fowlers Blood Pressure Location Left Arm Pain Scale: 0-10 Numeric Is Patient Pain Free? Yes Yes Yes WC - Visit Discharge Discharge Condition Stable Stable Stable Ambulatory Status Ambulatory, Ambulatory, Walker Walker Transportation Private Auto Private Auto Private Auto Medication Reconcilliation completed & Yes provided to patient/care provider Clinical Summary of Care Provided Yes 10/17/21 10/19/21 10:22 10:20 Wound Care Nurse 3 6-left heel -Ulcer Cleansing Rinsed/ Irrigated with Saline -Foul Odor after Cleansing No -Negative Pressure Wound Therapy N/A -Primary Dressing Applied -Other Dressing ABD pad -Primary Dressing Covered/Secured with Dry Gauze, Secured with Tape bilateral -Lotion applied to leg before No compression wrap -Multi-Layered Wrap Application Multi-Layer Comp - Bilat ($ ) Left -Lotion applied to leg before compression wrap -Multi-Layered Wrap Application Multi-Layer Comp - Left ($) Vital Signs Temperature (97.8 F-99.1 F) Temperature Source Pulse Rate (60-100) Pulse Location Blood Pressure (90/60-120/80) Blood Pressure Mean (mm Hg) Source Position Blood Pressure Location Pain Scale: 0-10 Numeric Is Patient Pain Free? Yes Yes WC - Visit Discharge Discharge Condition Stable Stable Ambulatory Status Ambulatory, Ambulatory, Walker Walker Transportation Private Auto Private Auto Medication Reconcilliation completed & Yes provided to patient/care provider Clinical Summary of Care Provided Yes Assessment/Plan Assessment/Plan (1) Pressure ulcer of left heel, stage 2: CODE(S): L89.622 - Pressure ulcer of left heel, stage 2 (2) Chronic kidney disease (CKD) stage G3a/A2, moderately decreased glomerular filtration rate (GFR) between 45-59 mL/min/1.73 square meter and albuminuria creatinine ratio between 30-299 mg/g: CODE(S): N18.31 - Chronic kidney disease, stage 3a (3) Pain in left foot: CODE(S): M79.672 - Pain in left foot (4) Type II diabetes mellitus: CODE(S): E11.9 - Type 2 diabetes mellitus without complications QUALIFIERS: Diabetes mellitus fpc insulin use: unspecified terminal supervisor insulin use status Diabetes mellitus complication status: with neurologic complications Diabetes mellitus complication detail: with polyneuropathy Qualified Code(s): E11.42 - Type 2 diabetes mellitus with diabetic polyneuropathy (5) Bilateral edema of lower extremity: CODE(S): R60.0 - Localized edema PLAN: Plan Patient seen and evaluated. Ulceration to the left plantar heel demonstrates a pink wound base with scant mixed fibrotic tissue. Ulceration site demonstrates no signs of infection.? Wound margins demonstrate scant yellow crusting.? Ulceration site was sharply debrided as stated in the clinical panel above. This was tolerated well. Ulcerative site measures 2.9 cm x 2.4 cm x 0.1 cm I applied epi fix graft #3 to the plantar left heel. Site anchored with Adaptic touch and Steri-Strips. She has multiple wounds secondary to blister formations to the left and right extremity secondary to edema.? These are currently healed and stable with no signs of infection. Left lower extremity dressed with 3M compression wrap.? Right leg dressed with 3M compression wrap. I discussed continued elevation of her legs aid in edema reduction and to remain compliant with her compression dressings. She continues to demonstrate progression in healing status of multiple wounds, with bilateral lower extremity edema well-controlled today. She will return to the wound care center on Saturday?for a dressing change to bilateral leg. I discussed with her localized signs of infection.? She is to observe for any erythema or redness moving up the leg, malodor to the ulceration site, purulent drainage from the ulceration site, increased pain to the left heel, or if she experiences any nausea, vomiting, fever, chills or other constitutional symptoms that these are signs of a progressing infection and she needs to report to the ED.? She voices understanding of this. The following work up and care recommendations were made: Dressing: Epi fix graft left heel; Adaptic to blister sites with Aquacel Ag and Suprasorb, left leg 3M compression wrap; right lower extremity 3M compression wrap Wash: Do not get wet Tissue growth optimization: Epi fix Offload: Offloading surgical shoe with heel cut out Vascular: Palpable pedal pulses Edema: Elevation of lower extremities and Compression wrap left lower extremity.? 3M compression wrap bilateral legs Infection: No localized signs of infection Pain: Patient may take [id number] Tylenol extra strength for pain control Host factors: Diabetes mellitus type 2, history of osteomyelitis left heel ? I answered all the patient's questions.? To return to the wound healing center in 1 week or call sooner if the patient has any questions or concerns. ? Note: [employer] speech recognition manager oracle software was used to create portions of this document. Sound-alike and misspelled words, as well as other manager oracle errors may be contained in the documentation.
[2021-10-24 10:51] VITALS: BP 101/65; PULSE 72; RESP 18; TEMP 36.5
[2021-10-26 09:13] VITALS: BP 131/60; PULSE 78; TEMP 35.8
--- NOTE | 2021-10-26 10:46 | PN.PCM_ITS ---
History of Present Illness Date of Service: 10/26/21 Chief Complaint: left heel ulcer left ankle ulcer- healed History of Wound: In October 2019, patient had rubbing in shoes while shopping which led to a blister that developed into an ulceration. Patient was then seen by Dewey Amezquita.P.M. for wound care. Patient then became infected and was admitted to the hospital. Patient was noted to have OM on MRI. Patient wanted to avoid surgery so a middle or intermediate school principal course of appropriate IV antibiotics was the treatment chosen. Patient was also noted to have hyperglycemia and has worked with hospitalist and PCP to try to get better control. Blood sugar levels remain elevated. Patient also had LEAS obtained in the hospital which suggested patient had the proper blood flow to allow healing. Patient has since finished middle or intermediate school principal course of antibiotics. Patient has since been seen on a weekly basis in office with progression and regression of wound noted over the weeks. Patient has tried various dressing options including wet to dry and santyl. The most progress was noted with Santyl but patient ran out and was unable to refill due to insurance issues. During which time the wound regressed. She also has an offloading surgical shoe and offloading boot to relieve pressure. Patient care is henceforth being carried out at the wound care center. Patient not currently on any antibiotics. Patient has since began skin graft aplications significant improvement is been noted to her foot overall. Patient has finished epifix graft applications with some very small remaining wound noted to left heel. Patient has new wounds noted to bilateral third digits. The right 3rd digit wound has healed. Her left ankle ulcer remains healed Patient relates that ambulation is getting easier and she is rebuilding her strength slowly. She has not had any worsening of minor remaining heel wound since beginning ambulation again. 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 Her has been helping her change the dressings daily to the left heel. She presents to the wound care center today for continued care of her left heel ulceration. Subjective Subjective This is a 61-year-old female who presents for follow-up to the wound care center for a left heel ulceration and circumferential leg wounds bilateral.? She denies any constitutional symptoms today. She has been changing her outer layer dressings daily to the heel.? She has been coming to the wound care center for nurse visits to perform dressing changes.?She has no further complaints today. Objective Data Objective Data Vital Signs: Vital Signs Temp Pulse Resp BP 96.5 F L 78 18 131/60 H 10/26/21 09:13 10/26/21 09:13 10/24/21 10:51 10/26/21 09:13 Physical Exam Const alert, oriented x3 and no apparent distress General Appearance: cooperative and comfortable HEENT normocephalic Eyes General Eye: normal appearance of both eyes Neck General: normal visual inspection Lymph Lymphatic: no lymphadenopathy noted and no lymphedema noted Resp normal respiratory effort Cardio regular rate and regular rhythm Extremity normal capillary refill, no joint enlargement, no calf tenderness and no pedal edema Skin no rashes or lesions noted, skin turgor normal and no jaundice Wound Narrative: Right posterior leg abrasion, stable, no local signs of infection.? Right anterior and anterior medial ulceration secondary to blister formation. No signs of infection. Left lower extremity heel decubitus ulceration.? Ulcerative site demonstrates pink wound base with scant fibrotic tissue throughout the wound bed with serosanguineous drainage and no signs of infection.? No palpable fluctuance noted to the left heel.? Ulcerative site does have hyperkeratotic tissue at the wound margins.? Ulcerative site demonstrates closure centrally with new skin formation. Left lower extremity circumferential wounds secondary to blister formation.? Site is stable no signs of infection. Dorsal abrasions digits 3 and 4 left foot secondary to previous blister formation.?Sites demonstrate no signs of infection. Neuro oriented x3 and moves all extremities Motor Exam: strength 5/5 throughout Debridement Note Debridement Note Wound debrided: Left plantar heel Laterality: Left Wound Grade/Stage: Glasgow stage II Type of Debridement: Excisional debridement Anesthesia Used: 5% Lidocaine Gel Depth: Down to and including healthy tissue and in the subcutaneous layer Percentage of wound debrided: 100 Instrument Used: #15 blade Tissue Removed: Fibrous, devitalized subcutaneous, biofilm, slough Severity: Fat Layer Exposed Amount of bleeding with debridement: Mild Bleeding Controlled with: Compression and gauze Patient tolerated procedure: Patient tolerated procedure well Post-Debridement Measurements and Additional Note: Post-Debridement Measurements/Treatment WC - Nurse 1 - General Ulcer Assessment Start: 10/05/21 09:09 Freq: Status: Active Protocol: MOOK Activity Type Activity Date Activity User E-sign Co-sign Detail Recorded Client Recorded Date Recorded By Document 10/05/21 09:09 KR [id number] 10/05/21 09:15 KR Document 10/10/21 11:46 KR [id number] 10/10/21 11:48 KR Document 10/12/21 09:12 KR [id number] 10/12/21 09:17 KR Document 10/17/21 10:21 KR [id number] 10/17/21 10:22 KR Document 10/19/21 09:16 AK [id number] 10/19/21 09:18 AK Document 10/24/21 10:51 DL [id number] 10/24/21 11:01 DL Document 10/26/21 09:13 KR [id number] 10/26/21 09:16 KR 10/05/21 10/10/21 10/12/21 09:09 11:46 09:12 - Today's Visit Information Type of service Follow-up Visit Nurse-only Follow-up Visit (Physician/ADVENTURE GUIDE Visit (Physician/ADVENTURE GUIDE ) ) Arrival Mode Walker Ambulatory, Ambulatory, Walker Walker Transfer Assistance Patient Identification Verified (Name & Yes Yes Yes ) Patient Requires Transmission-Based Precautions Safety Precautions Vital Signs Temperature (97.8 F-99.1 F) 97.0 F L 96.7 F L 97.4 F L Temperature Source Temporal Temporal Temporal Pulse Rate (60-100) 75 82 80 Pulse Location Monitor Monitor Monitor Respiratory Rate (12-18) Respiratory rate source Blood Pressure (90/60-120/80) 119/70 128/75 H 121/72 H Blood Pressure Mean (mm Hg) 86 92 88 Source Monitor Monitor Monitor Position Sitting Semi-Fowlers Semi-Fowlers Blood Pressure Location Right Arm Left Arm Left Arm History Since Last Visit- (Skip if this is Patient's initial visit) Have you changed medications since your No No No last visit? Any new allergies or adverse reactions No No No Had a fall/change in ADL's that may No No No increase risk of falls Signs or symptoms of abuse and/or No No No neglect since last visit Have you been in the hospital since your No No No last visit? Has dressing in place as prescribed Yes Yes Yes Has compression in place as prescribed Yes Yes Yes Has offloadiing in place as prescribed N/A N/A N/A Experienced any changes in pain level or No No No management Left Footwear Regular Shoe Regular Shoe Right Footwear Regular Shoe Regular Shoe Pain Scale: 0-10 Numeric Is Patient Pain Free? Yes Yes Yes 10/17/21 10/19/21 10/24/21 10:21 09:16 10:51 WC - Today's Visit Information Type of service Nurse-only Follow-up Visit Nurse-only Visit (Physician/ADVENTURE GUIDE Visit ) Arrival Mode Ambulatory, Ambulatory Ambulatory Walker Transfer Assistance None Patient Identification Verified (Name & Yes Yes Yes ) Patient Requires Transmission-Based No No Precautions Safety Precautions NA Vital Signs Temperature (97.8 F-99.1 F) 97.6 F L 96.7 F L 97.7 F L Temperature Source Temporal Temporal Temporal Pulse Rate (60-100) 78 86 72 Pulse Location Monitor Monitor Monitor Respiratory Rate (12-18) 18 Respiratory rate source Observation Blood Pressure (90/60-120/80) 86/53 L 150/74 H 101/65 Blood Pressure Mean (mm Hg) 64 99 77 Source Monitor Monitor Monitor Position Semi-Fowlers Blood Pressure Location Right Arm History Since Last Visit- (Skip if this is Patient's initial visit) Have you changed medications since your No No No last visit? Any new allergies or adverse reactions No No No Had a fall/change in ADL's that may No No No increase risk of falls Signs or symptoms of abuse and/or No No No neglect since last visit Have you been in the hospital since your No No No last visit? Has dressing in place as prescribed Yes Yes Yes Has compression in place as prescribed Yes Yes Has offloadiing in place as prescribed N/A N/A N/A Experienced any changes in pain level or No No No management Left Footwear Slipper Slipper Right Footwear Slipper Slipper Pain Scale: 0-10 Numeric Is Patient Pain Free? Yes Yes Yes 10/26/21 09:13 - Today's Visit Information Type of service Follow-up Visit (Physician/ADVENTURE GUIDE ) Arrival Mode Walker Transfer Assistance Patient Identification Verified (Name & Yes ) Patient Requires Transmission-Based Precautions Safety Precautions Vital Signs Temperature (97.8 F-99.1 F) 96.5 F L Temperature Source Temporal Pulse Rate (60-100) 78 Pulse Location Monitor Respiratory Rate (12-18) Respiratory rate source Blood Pressure (90/60-120/80) 131/60 H Blood Pressure Mean (mm Hg) 83 Source Monitor Position Semi-Fowlers Blood Pressure Location Left Arm History Since Last Visit- (Skip if this is Patient's initial visit) Have you changed medications since your No last visit? Any new allergies or adverse reactions No Had a fall/change in ADL's that may No increase risk of falls Signs or symptoms of abuse and/or No neglect since last visit Have you been in the hospital since your No last visit? Has dressing in place as prescribed Yes Has compression in place as prescribed Yes Has offloadiing in place as prescribed N/A Experienced any changes in pain level or No management Left Footwear Regular Shoe Right Footwear Regular Shoe Pain Scale: 0-10 Numeric Is Patient Pain Free? Yes WC - Nurse 1 - General Ulcer Measurement Start: 10/05/21 09:09 Freq: Status: Active Protocol: Activity Type Activity Date Activity User E-sign Co-sign Detail Recorded Client Recorded Date Recorded By Document 10/05/21 09:09 KR [id number] 10/05/21 09:15 KR Document 10/12/21 09:12 KR [id number] 10/12/21 09:17 KR Document 10/19/21 09:16 AK [id number] 10/19/21 09:18 AK Document 10/24/21 10:51 DL [id number] 10/24/21 11:01 DL Document 10/26/21 09:13 KR [id number] 10/26/21 09:16 KR 10/05/21 10/12/21 10/19/21 09:09 09:12 09:16 Wound Center Nurse 1 6-left heel -Combined with other wound No -Current Size (cm) - Length 2.6 3.4 2.9 -Current Size (cm) - Width 3 2.5 2.5 -Current Size (cm) - Depth 0.1 0.1 0.1 -Total Square Cm 7.8 8.50 7.25 -Date of Last Picture (Recall this 07/21/22 field) -Photo Taken Yes -Tunneling No -Undermining/Tunneling No -Circular Undermining No -Change in Wound Grade/Stage No -Exudate Amt Small Small Medium -Exudate Type Serosanguineous Serosanguineous Serosanguineous -Wound Margin Distinct, Distinct, Distinct, Outline Outline Outline Attached Attached Attached -Granulation Amt Medium (34-66%) Medium (34-66%) Small (1-33%) -Granulation Quality [place] Pale,[place] N/A -Slough/Fibrin Yes -Necrosis Amt Medium (34-66%) None Present (0 Medium (34-66%) %) -Necrotic Tissue Type Adherent Slough Adherent Slough -Structure Exposed N/A -Texture (Bren-wound Skin Appearance) Assessed, Assessed, No Abnormality, Scarring Scarring Assessed -Moisture (Bren-wound Skin Appearance) No Abnormality, No Abnormality, Assessed, Assessed Assessed, Maceration Maceration -Color (Bren-wound Skin Appearance) No Abnormality, No Abnormality, Assessed, Assessed Assessed Erythema -Temperature (Bren-wound Skin No Abnormality No Abnormality No Abnormality Appearance) (Pt Warm) (Pt Warm) (Pt Warm) -Tenderness on Palpation (Bren-wound No No No Skin Appearance) -Ulcer Cleansing Rinsed/ Soap and Water Rinsed/ Irrigated with Irrigated with Saline Saline -Foul Odor after Cleansing No No No -Anesthetic Used 4% Lidocaine 5% Lidocaine 5% Lidocaine Solution Gel Gel -Wound Comment(s) Right Calf (cm) 37 Right Ankle (cm) 24 Left Calf (cm) 38 34 Left Ankle (cm) 24 24 10/24/21 10/26/21 10:51 09:13 Wound Center Nurse 1 6-left heel -Combined with other wound -Current Size (cm) - Length 2.4 -Current Size (cm) - Width 1.9 -Current Size (cm) - Depth 0.1 -Total Square Cm 4.56 -Date of Last Picture (Recall this field) -Photo Taken No -Tunneling -Undermining/Tunneling -Circular Undermining -Change in Wound Grade/Stage -Exudate Amt Small Medium -Exudate Type Serosanguineous Serosanguineous -Wound Margin Distinct, Distinct, Outline Outline Attached Attached -Granulation Amt Medium (34-66%) Medium (34-66%) -Granulation Quality [place] -Slough/Fibrin -Necrosis Amt Medium (34-66%) -Necrotic Tissue Type Adherent Slough -Structure Exposed N/A -Texture (Bren-wound Skin Appearance) No Abnormality Assessed, Scarring -Moisture (Bren-wound Skin Appearance) No Abnormality Assessed, Maceration,Dry/ Scaly -Color (Bren-wound Skin Appearance) No Abnormality No Abnormality, Assessed -Temperature (Bren-wound Skin No Abnormality No Abnormality Appearance) (Pt Warm) (Pt Warm) -Tenderness on Palpation (Bren-wound No Skin Appearance) -Ulcer Cleansing Soap and Water -Foul Odor after Cleansing No No -Anesthetic Used 4% Lidocaine Solution -Wound Comment(s) Epifix intact, Leg only washed . Dressing changed per K.R . 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 Right Calf (cm) 37 36 Right Ankle (cm) 28.8 25 Left Calf (cm) 36 33 Left Ankle (cm) 26 25 WC - Nurse 2 - General Ulcer CM Notes Start: 10/05/21 09:09 Freq: Status: Active Protocol: Activity Type Activity Date Activity User E-sign Co-sign Detail Recorded Client Recorded Date Recorded By Document 10/05/21 09:32 PL [id number] 10/05/21 09:34 PL Document 10/12/21 12:36 PL [id number] 10/12/21 12:38 PL Document 10/19/21 12:51 PL [id number] 10/19/21 12:53 PL 10/05/21 10/12/21 10/19/21 09:32 12:36 12:51 Wound Center Nurse 2 6-left heel -Time 09:21 09:58 09:40 -Correct Patient Yes Yes Yes -Correct Side, Site, Position Yes Yes Yes -Correct Procedure Yes Yes Yes -Procedure Performed Yes Yes Yes -Type of Procedure Debridement Debridement Debridement -Clinical Debridement Subcutaneous Subcutaneous Subcutaneous -Tissue Removed Subcutaneous Subcutaneous Subcutaneous -Post Debridement (cm) - Length 2.6 3.4 3.0 -Post Debridement (cm) - Width 3.0 2.5 2.2 -Post Debridement (cm) - Depth 0.1 0.1 0.2 -Total Square (Post) (cm) 7.80 8.50 6.60 -Area of Debridement (cm) - Length 2.6 3.4 3.0 -Area of Debridement (cm) - Width 3.0 2.5 2.2 -Total Square (Area) (cm) 7.80 8.50 6.60 -Tunneling No No No -Undermining/Tunneling No No No -Circular Undermining No No No -Wound/Ulcer Outcome Not Healed Not Healed Not Healed -Ulcer Cleansing Rinsed/ Rinsed/ Rinsed/ Irrigated with Irrigated with Irrigated with Saline Saline Saline -Foul Odor after Cleansing No No No -Bioengineered Tissue Yes Yes Yes -Type of Bioengineered Tissue Epifix Epifix Epifix -Expiration Date 05/30/26 05/30/26 06/30/26 -Product Lot Number [id number] -Percent Used 100 100 100 -Bleeding Controlled with Pressure Pressure Pressure -Treatment Response Procedure Procedure Procedure Tolerated Well Tolerated Well Tolerated Well -Debridement - Subq, 1st 20sq cm No No No -Apply Skin Sub - 1st 25 sq cm - Feet 1 1 1 -Epifix (per sq cm) 4 4 4 Pain Scale: 0-10 Numeric Is Patient Pain Free? Yes Yes Yes WC - Nurse 3 - General Ulcer D/C NN Start: 10/05/21 09:09 Freq: Status: Active Protocol: Activity Type Activity Date Activity User E-sign Co-sign Detail Recorded Client Recorded Date Recorded By Document 10/05/21 11:26 KR [id number] 10/05/21 11:27 KR Document 10/10/21 11:46 KR [id number] 10/10/21 11:48 KR Document 10/12/21 11:46 AK [id number] 10/12/21 11:47 AK Document 10/17/21 10:22 KR [id number] 10/17/21 10:22 KR Edit Result 10/17/21 10:22 KR (1) [id number] 10/18/21 07:15 PL Document 10/19/21 10:20 AK [id number] 10/19/21 10:21 AK Document 10/24/21 10:51 DL [id number] 10/24/21 11:01 DL Edit Result 10/24/21 10:51 DL (2) [id number] 10/25/21 07:30 PL Document 10/26/21 10:21 DL [id number] 10/26/21 10:22 DL (1) Left - Multi-Layered Wrap Application => Multi-Layer Comp - => Left ($) (2) bilateral - Multi-Layered Wrap Application => Multi-Layer Comp - => Bilat ($) 10/05/21 10/10/21 10/12/21 11:26 11:46 11:46 Wound Care Nurse 3 6-left heel -Ulcer Cleansing Rinsed/ Not Cleansed Irrigated with Saline -Foul Odor after Cleansing No -Negative Pressure Wound Therapy N/A -Primary Dressing Applied NonAdherent Contact Layer -Other Dressing ABD pad nurses hat -Primary Dressing Covered/Secured with Dry Gauze, Dry Gauze, Secured with Secured with Secured with Tape Tape Tape -Other Covering bilateral -Lotion applied to leg before compression wrap -Multi-Layered Wrap Application Left -Lotion applied to leg before No compression wrap -Multi-Layered Wrap Application Multi-Layer Multi-Layer Multi-Layer Comp - Bilat ($ Comp - Bilat ($ Comp - Left ($) ) ) Treatment Response Vital Signs Temperature (97.8 F-99.1 F) 96.7 F L Temperature Source Temporal Pulse Rate (60-100) 82 Pulse Location Monitor Respiratory Rate (12-18) Respiratory rate source Blood Pressure (90/60-120/80) 128/75 H Blood Pressure Mean (mm Hg) 92 Source Monitor Position Semi-Fowlers Blood Pressure Location Left Arm Pain Scale: 0-10 Numeric Is Patient Pain Free? Yes Yes Yes WC - Visit Discharge Discharge Condition Stable Stable Stable Ambulatory Status Ambulatory, Ambulatory, Walker Walker Transportation Private Auto Private Auto Private Auto Medication Reconcilliation completed & Yes provided to patient/care provider Clinical Summary of Care Provided Yes 10/17/21 10/19/21 10/24/21 10:22 10:20 10:51 Wound Care Nurse 3 6-left heel -Ulcer Cleansing Rinsed/ Not Cleansed Irrigated with Saline -Foul Odor after Cleansing No No -Negative Pressure Wound Therapy N/A -Primary Dressing Applied -Other Dressing ABD pad Epifix intact -Primary Dressing Covered/Secured with Dry Gauze, Dry Gauze & Secured with Roll Gauze, Tape Secured with Tape -Other Covering 3M bilateral -Lotion applied to leg before No compression wrap -Multi-Layered Wrap Application Multi-Layer Multi-Layer Comp - Bilat ($ Comp - Bilat ($ ) ) Left -Lotion applied to leg before compression wrap -Multi-Layered Wrap Application Multi-Layer Comp - Left ($) Treatment Response Vital Signs Temperature (97.8 F-99.1 F) 97.7 F L Temperature Source Temporal Pulse Rate (60-100) 72 Pulse Location Monitor Respiratory Rate (12-18) 18 Respiratory rate source Observation Blood Pressure (90/60-120/80) 101/65 Blood Pressure Mean (mm Hg) 77 Source Monitor Position Blood Pressure Location Pain Scale: 0-10 Numeric Is Patient Pain Free? Yes Yes Yes WC - Visit Discharge Discharge Condition Stable Stable Ambulatory Status Ambulatory, Ambulatory, Walker Walker Transportation Private Auto Private Auto Medication Reconcilliation completed & Yes provided to patient/care provider Clinical Summary of Care Provided Yes 10/26/21 10:21 Wound Care Nurse 3 6-left heel -Ulcer Cleansing -Foul Odor after Cleansing No -Negative Pressure Wound Therapy -Primary Dressing Applied NonAdherent Contact Layer -Other Dressing Epifix -Primary Dressing Covered/Secured with -Other Covering Nurses Hat bilateral -Lotion applied to leg before compression wrap -Multi-Layered Wrap Application Multi-Layer Comp - Bilat ($ ) Left -Lotion applied to leg before compression wrap -Multi-Layered Wrap Application Treatment Response Procedure Tolerated Well Vital Signs Temperature (97.8 F-99.1 F) Temperature Source Pulse Rate (60-100) Pulse Location Respiratory Rate (12-18) Respiratory rate source Blood Pressure (90/60-120/80) Blood Pressure Mean (mm Hg) Source Position Blood Pressure Location Pain Scale: 0-10 Numeric Is Patient Pain Free? Yes WC - Visit Discharge Discharge Condition Stable Ambulatory Status Ambulatory, Walker Transportation Private Auto Medication Reconcilliation completed & provided to patient/care provider Clinical Summary of Care Provided Assessment/Plan Assessment/Plan (1) Pressure ulcer of left heel, stage 2: CODE(S): L89.622 - Pressure ulcer of left heel, stage 2 (2) Chronic kidney disease (CKD) stage G3a/A2, moderately decreased glomerular filtration rate (GFR) between 45-59 mL/min/1.73 square meter and albuminuria creatinine ratio between 30-299 mg/g: CODE(S): N18.31 - Chronic kidney disease, stage 3a (3) Pain in left foot: CODE(S): M79.672 - Pain in left foot (4) Type II diabetes mellitus: CODE(S): E11.9 - Type 2 diabetes mellitus without complications QUALIFIERS: Diabetes mellitus residential insulin use: unspecified residential insulin use status Diabetes mellitus complication status: with neurologic complications Diabetes mellitus complication detail: with polyneuropathy Qualified Code(s): E11.42 - Type 2 diabetes mellitus with diabetic polyneuropathy (5) Bilateral edema of lower extremity: CODE(S): R60.0 - Localized edema PLAN: Plan Patient seen and evaluated. Ulceration to the left plantar heel demonstrates a pink wound base with scant mixed fibrotic tissue. Ulceration site demonstrates no signs of infection.? Wound margins healthy and atrophic.? Ulceration site was sharply debrided as stated in the clinical panel above. This was tolerated well. Ulcerative site measures 2.5 cm x 1.7 cm x 0.1 cm I applied epi fix graft #4 to the plantar left heel. Site anchored with Adaptic touch and Steri-Strips. Ulcer site continues to demonstrate good healing progression with continued reduction in size. She has multiple wounds secondary to blister formations to the left and right extremity secondary to edema.? These are currently healed and stable with no signs of infection. Left lower extremity dressed with 3M compression wrap.? Right leg dressed with 3M compression wrap. I discussed continued elevation of her legs aid in edema reduction and to remain compliant with her compression dressings. She continues to demonstrate progression in healing status of multiple wounds, with bilateral lower extremity edema well-controlled today. She will return to the wound care center on Saturday?for a dressing change to bilateral leg. I discussed with her localized signs of infection.? She is to observe for any erythema or redness moving up the leg, malodor to the ulceration site, purulent drainage from the ulceration site, increased pain to the left heel, or if she experiences any nausea, vomiting, fever, chills or other constitutional symptoms that these are signs of a progressing infection and she needs to report to the ED.? She voices understanding of this. The following work up and care recommendations were made: Dressing: Epi fix graft left heel; Adaptic to blister sites with Aquacel Ag and Suprasorb, left leg 3M compression wrap; right lower extremity 3M compression wrap Wash: Do not get wet Tissue growth optimization: Epi fix Offload: Offloading surgical shoe with heel cut out Vascular: Palpable pedal pulses Edema: Elevation of lower extremities and Compression wrap left lower extremity.? 3M compression wrap bilateral legs Infection: No localized signs of infection Pain: Patient may take dadb-xic-iwnowzz Tylenol extra strength for pain control Host factors: Diabetes mellitus type 2, history of osteomyelitis left heel ? I answered all the patient's questions.? To return to the wound healing center in 1 week or call sooner if the patient has any questions or concerns. ? Note: [employer] speech recognition continuing education dean software was used to create po rtions of this document. Sound-alike and misspelled words, as well as other continuing education dean errors may be contained in the documentation.
== END 2021-10-29 23:59 | disposition home or self-care (01) ==
LOC: WC 09:15
PROVIDERS: PCP Family Medicine; Visit Provider Student in an Organized Health Care Education/Training Program
DX: E11.621 Type 2 diabetes mellitus with foot ulcer (principal); L89.622 Pressure ulcer of left heel, stage 2; L97.322 Non-pressure chronic ulcer of left ankle with fat layer exposed; E11.65 Type 2 diabetes mellitus with hyperglycemia; E11.42 Type 2 diabetes mellitus with diabetic polyneuropathy; E11.22 Type 2 diabetes mellitus with diabetic chronic kidney disease; Z79.4 Long term (current) use of insulin; N18.31 Chronic kidney disease, stage 3a; R60.0 Localized edema; M79.672 Pain in left foot
CPT/HCPCS: 15275; 29581; Q4186

== ENCOUNTER 2021-11-23 09:15 | Outpatient (RCR) | payer MEDICARE, MEDICAID, SELFPAY ==
[2021-10-30 00:17] VITALS: BP 131/60; PULSE 78; RESP 18; TEMP 35.8
[2021-11-02 09:28] VITALS: BP 140/75; PULSE 67; TEMP 36.3
--- NOTE | 2021-11-02 12:45 | PN.PCM_ITS ---
History of Present Illness Date of Service: 11/02/21 Chief Complaint: left heel ulcer left ankle ulcer- healed History of Wound: In October 2019, patient had rubbing in shoes while shopping which led to a blister that developed into an ulceration. Patient was then seen by Dewey Amezquita.P.M. for wound care. Patient then became infected and was admitted to the hospital. Patient was noted to have OM on MRI. Patient wanted to avoid surgery so a extermination supervisor course of appropriate IV antibiotics was the treatment chosen. Patient was also noted to have hyperglycemia and has worked with hospitalist and PCP to try to get better control. Blood sugar levels remain elevated. Patient also had LEAS obtained in the hospital which suggested patient had the proper blood flow to allow healing. Patient has since finished extermination supervisor course of antibiotics. Patient has since been seen on a weekly basis in office with progression and regression of wound noted over the weeks. Patient has tried various dressing options including wet to dry and santyl. The most progress was noted with Santyl but patient ran out and was unable to refill due to insurance issues. During which time the wound regressed. She also has an offloading surgical shoe and offloading boot to relieve pressure. Patient care is henceforth being carried out at the wound care center. Patient not currently on any antibiotics. Patient has since began skin graft aplications significant improvement is been noted to her foot overall. Patient has finished epifix graft applications with some very small remaining wound noted to left heel. Patient has new wounds noted to bilateral third digits. The right 3rd digit wound has healed. Her left ankle ulcer remains healed Patient relates that ambulation is getting easier and she is rebuilding her strength slowly. She has not had any worsening of minor remaining heel wound since beginning ambulation again. 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 Her has been helping her change the dressings daily to the left heel. She presents to the wound care center today for continued care of her left heel ulceration. Subjective Subjective This is a 61-year-old female who presents for follow-up to the wound care center for a left heel ulceration and circumferential leg wounds bilateral.? She states she has been doing better keeping her feet elevated and has noticed that her swelling is decreased. She denies any constitutional symptoms today. She has been changing her outer layer dressings daily to the heel.? She has been coming to the wound care center for nurse visits to perform dressing changes.?She has no further complaints today. Objective Data Objective Data Vital Signs: Vital Signs Temp Pulse Resp BP 97.3 F L 67 18 140/75 H 11/02/21 09:28 11/02/21 09:28 10/30/21 00:17 11/02/21 09:28 Physical Exam Const alert, oriented x3 and no apparent distress General Appearance: cooperative and comfortable HEENT normocephalic Eyes General Eye: normal appearance of both eyes Neck General: normal visual inspection Lymph Lymphatic: no lymphadenopathy noted and no lymphedema noted Resp normal respiratory effort Cardio regular rate and regular rhythm Extremity normal capillary refill, no joint enlargement, no calf tenderness and no pedal edema Peripheral Pulses: Yes posterior tibial pulses present bilateral and dorsalis pedis pulses present bilateral Skin no rashes or lesions noted, skin turgor normal and no jaundice Wound Narrative: Right posterior leg abrasion, stable, no local signs of infection.? Right anterior and anterior medial ulceration secondary to blister formation. No signs of infection. Left lower extremity heel decubitus ulceration.? Ulcerative site demonstrates pink wound base with scant fibrotic tissue throughout the wound bed with serosanguineous drainage and no signs of infection.? No palpable fluctuance noted to the left heel.? Ulcerative site does have hyperkeratotic tissue at the wound margins.? Ulcerative site demonstrates closure centrally with new skin formation. Left lower extremity circumferential wounds secondary to blister formation.? Site is stable no signs of infection. Neuro oriented x3 and moves all extremities Motor Exam: strength 5/5 throughout Debridement Note Debridement Note Wound debrided: Left plantar heel decubitus ulceration Laterality: Left Wound Grade/Stage: Glasgow stage II Type of Debridement: Excisional debridement Anesthesia Used: 5% Lidocaine Gel Depth: Down to and including healthy tissue and in the subcutaneous layer Percentage of wound debrided: 100 Instrument Used: 3mm curette Tissue Removed: Fibrous, devitalized subcutaneous, biofilm, slough Severity: Fat Layer Exposed Amount of bleeding with debridement: Mild Bleeding Controlled with: Compression and gauze Patient tolerated procedure: Patient tolerated procedure well Post-Debridement Measurements and Additional Note: Post-Debridement Measurements/Treatment WC - Nurse 1 - General Ulcer Assessment Start: 11/02/21 09:28 Freq: Status: Active Protocol: [email or web address] Activity Type Activity Date Activity User E-sign Co-sign Detail Recorded Client Recorded Date Recorded By Document 11/02/21 09:28 ELIO [id number] 11/02/21 09:32 ELIO 11/02/21 09:28 - Today's Visit Information Type of service Follow-up Visit (Physician/[facility] [employer]PER[employer] ) Arrival Mode Walker Patient Identification Verified (Name & Yes ) Vital Signs Temperature (97.8 F-99.1 F) 97.3 F L Temperature Source Temporal Pulse Rate (60-100) 67 Pulse Location Monitor Blood Pressure (90/60-120/80) 140/75 H Blood Pressure Mean (mm Hg) 96 Source Manual Position Supine Blood Pressure Location Right Arm History Since Last Visit- (Skip if this is Patient's initial visit) Have you changed medications since your No last visit? Any new allergies or adverse reactions No Had a fall/change in ADL's that may No increase risk of falls Signs or symptoms of abuse and/or No neglect since last visit Have you been in the hospital since your No last visit? Has dressing in place as prescribed Yes Has compression in place as prescribed Yes Has offloadiing in place as prescribed N/A Experienced any changes in pain level or No management Left Footwear Regular Shoe Right Footwear Regular Shoe Pain Scale: 0-10 Numeric Is Patient Pain Free? Yes - Nurse 1 - General Ulcer Measurement Start: 11/02/21 09:28 Freq: Status: Active Protocol: Activity Type Activity Date Activity User E-sign Co-sign Detail Recorded Client Recorded Date Recorded By Document 11/02/21 09:28 ELIO [id number] 11/02/21 09:32 ELIO 11/02/21 09:28 Wound Center Nurse 1 6-left heel -Current Size (cm) - Length 2 -Current Size (cm) - Width 2.7 -Current Size (cm) - Depth 0.1 -Total Square Cm 5.4 -Exudate Amt Medium -Exudate Type Serosanguineous -Wound Margin Distinct, Outline Attached -Granulation Amt Medium (34-66%) -Granulation Quality Champion -Necrosis Amt Small (1-33%) -Necrotic Tissue Type Adherent Slough -Texture (Bren-wound Skin Appearance) Assessed, Scarring -Moisture (Bren-wound Skin Appearance) No Abnormality, Assessed -Color (Bren-wound Skin Appearance) No Abnormality, Assessed -Temperature (Bren-wound Skin No Abnormality Appearance) (Pt Warm) -Tenderness on Palpation (Bren-wound No Skin Appearance) -Ulcer Cleansing Soap and Water -Foul Odor after Cleansing No -Anesthetic Used 4% Lidocaine Solution Right Calf (cm) 37 Right Ankle (cm) 26.5 Left Calf (cm) 30.5 Left Ankle (cm) 24.2 WC - Nurse 2 - General Ulcer CM Notes Start: 11/02/21 09:28 Freq: Status: Active Protocol: Activity Type Activity Date Activity User E-sign Co-sign Detail Recorded Client Recorded Date Recorded By Document 11/02/21 12:30 PL [id number] 11/02/21 12:32 PL 11/02/21 12:30 Wound Center Nurse 2 6-left heel -Time 10:04 -Correct Patient Yes -Correct Side, Site, Position Yes -Correct Procedure Yes -Procedure Performed Yes -Type of Procedure Debridement -Clinical Debridement Subcutaneous -Tissue Removed Subcutaneous -Post Debridement (cm) - Length 2.5 -Post Debridement (cm) - Width 1.7 -Post Debridement (cm) - Depth 0.2 -Total Square (Post) (cm) 4.25 -Area of Debridement (cm) - Length 2.5 -Area of Debridement (cm) - Width 1.7 -Total Square (Area) (cm) 4.25 -Tunneling No -Undermining/Tunneling No -Circular Undermining No -Wound/Ulcer Outcome Not Healed -Ulcer Cleansing Rinsed/ Irrigated with Saline -Foul Odor after Cleansing No -Bioengineered Tissue Yes -Type of Bioengineered Tissue Epifix -Expiration Date 07/30/26 -Product Lot Number [id number] -Percent Used 100 -Bleeding Controlled with Pressure -Treatment Response Procedure Tolerated Well -Debridement - Subq, 1st 20sq cm No -Apply Skin Sub - 1st 25 sq cm - Feet 1 -Epifix (per sq cm) 4 Pain Scale: 0-10 Numeric Is Patient Pain Free? Yes SAMARIA - Nurse 3 - General Ulcer D/C NN Start: 11/02/21 09:28 Freq: Status: Active Protocol: Activity Type Activity Date Activity User E-sign Co-sign Detail Recorded Client Recorded Date Recorded By Document 11/02/21 11:29 DONITA [id number] 11/02/21 11:31 DONITA 11/02/21 11:29 Wound Care Nurse 3 6-left heel -Foul Odor after Cleansing No -Negative Pressure Wound Therapy N/A -Other Dressing ABD -Primary Dressing Covered/Secured with Dry Gauze & Roll Gauze, Secured with Tape Bilateral -Lotion applied to leg before No compression wrap -Multi-Layered Wrap Application Multi-Layer Comp - Bilat ($ ) Pain Scale: 0-10 Numeric Is Patient Pain Free? Yes WC - Visit Discharge Discharge Condition Stable Ambulatory Status Ambulatory Medication Reconcilliation completed & Yes provided to patient/care provider Clinical Summary of Care Provided Yes Assessment/Plan Assessment/Plan (1) Pressure ulcer of left heel, stage 2: CODE(S): L89.622 - Pressure ulcer of left heel, stage 2 (2) Chronic kidney disease (CKD) stage G3a/A2, moderately decreased glomerular filtration rate (GFR) between 45-59 mL/min/1.73 square meter and albuminuria creatinine ratio between 30-299 mg/g: CODE(S): N18.31 - Chronic kidney disease, stage 3a (3) Pain in left foot: CODE(S): M79.672 - Pain in left foot (4) Type II diabetes mellitus: CODE(S): E11.9 - Type 2 diabetes mellitus without complications QUALIFIERS: Diabetes mellitus fci insulin use: unspecified fci insulin use status Diabetes mellitus complication status: with neurologic complications Diabetes mellitus complication detail: with polyneuropathy Qualified Code(s): E11.42 - Type 2 diabetes mellitus with diabetic polyneuropathy (5) Bilateral edema of lower extremity: CODE(S): R60.0 - Localized edema PLAN: Plan Patient seen and evaluated. Ulceration to the left plantar heel demonstrates a pink wound base with scant mixed fibrotic tissue. Ulceration site demonstrates no signs of infection.? Wound margins healthy and atrophic.? Ulceration site was sharply debrided as stated in the clinical panel above. This was tolerated well.? Ulcerative site measures 2.4 cm x 1.7 cm x 0.1 cm I applied epi fix graft #5 to the plantar left heel.? Site anchored with Adaptic touch and Steri-Strips.? Ulcer site continues to demonstrate good healing progression with continued reduction in size. She has multiple wounds secondary to blister formations to the left and right extremity secondary to edema.? These are currently healed and stable with no signs of infection. Left lower extremity dressed with 3M compression wrap.?Right leg dressed with 3M compression wrap. I discussed continued elevation of her legs aid in edema reduction and to remain compliant with her compression dressings. She continues to demonstrate progression in healing status of multiple wounds, with bilateral lower extremity edema well-controlled today. She will return to the wound care center on Saturday?for a dressing change to bilateral leg. I discussed with her localized signs of infection.? She is to observe for any erythema or redness moving up the leg, malodor to the ulceration site, purulent drainage from the ulceration site, increased pain to the left heel, or if she experiences any nausea, vomiting, fever, chills or other constitutional symptoms that these are signs of a progressing infection and she needs to report to the ED.? She voices understanding of this. The following work up and care recommendations were made: Dressing: Epi fix graft left heel; Adaptic to blister sites with Aquacel Ag and Suprasorb, left leg 3M compression wrap; right lower extremity 3M compression wrap Wash: Do not get wet Tissue growth optimization: Epi fix Offload: Offloading surgical shoe with heel cut out Vascular: Palpable pedal pulses Edema: Elevation of lower extremities and Compression wrap left lower extremity.? 3M compression wrap bilateral legs Infection: No localized signs of infection Pain: Patient may take [id number] Tylenol extra strength for pain control Host factors: Diabetes mellitus type 2, history of osteomyelitis left heel ? I answered all the patient's questions.? To return to the wound healing center in 1 week or call sooner if the patient has any questions or concerns. ? Note: [employer] speech recognition drug safety data management specialist software was used to create portions of this document. Sound-alike and misspelled words, as well as other drug safety data management specialist errors may be contained in the documentation.
[2021-11-07 11:59] VITALS: BP 104/48; PULSE 69; RESP 20; TEMP 36.1
[2021-11-09 09:18] VITALS: BP 128/79; PULSE 68; TEMP 36.3
--- NOTE | 2021-11-09 10:13 | PCM.WC.PN ---
History of Present Illness Date of Service: 11/09/21 Chief Complaint: left heel ulcer left ankle ulcer- healed History of Wound: In October 2019, patient had rubbing in shoes while shopping which led to a blister that developed into an ulceration. Patient was then seen by Dewey Amezquita.P.Usha. for wound care. Patient then became infected and was admitted to the hospital. Patient was noted to have OM on MRI. Patient wanted to avoid surgery so a intermodal customer service course of appropriate IV antibiotics was the treatment chosen. Patient was also noted to have hyperglycemia and has worked with hospitalist and PCP to try to get better control. Blood sugar levels remain elevated. Patient also had LEAS obtained in the hospital which suggested patient had the proper blood flow to allow healing. Patient has since finished intermodal customer service course of antibiotics. Patient has since been seen on a weekly basis in office with progression and regression of wound noted over the weeks. Patient has tried various dressing options including wet to dry and santyl. The most progress was noted with Santyl but patient ran out and was unable to refill due to insurance issues. During which time the wound regressed. She also has an offloading surgical shoe and offloading boot to relieve pressure. Patient care is henceforth being carried out at the wound care center. Patient not currently on any antibiotics. Patient has since began skin graft aplications significant improvement is been noted to her foot overall. Patient has finished epifix graft applications with some very small remaining wound noted to left heel. Patient has new wounds noted to bilateral third digits. The right 3rd digit wound has healed. Her left ankle ulcer remains healed Patient relates that ambulation is getting easier and she is rebuilding her strength slowly. She has not had any worsening of minor remaining heel wound since beginning ambulation again. 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 Her has been helping her change the dressings daily to the left heel. She presents to the wound care center today for continued care of her left heel ulceration. Subjective Subjective This is a 61-year-old female who presents for follow-up to the wound care center for a left heel ulceration and circumferential leg wounds bilateral.? She states she is continuing keeping her feet elevated and has noticed that her swelling remains decreased.? She also notes that her wound is getting smaller. She denies any constitutional symptoms today. She has been changing her outer layer dressings daily to the heel.? She has been coming to the wound care center for nurse visits to perform dressing changes.?She has no further complaints today. Objective Data Objective Data Vital Signs: Vital Signs Temp Pulse Resp BP 97.4 F L 68 20 H 128/79 H 11/09/21 09:18 11/09/21 09:18 11/07/21 11:59 11/09/21 09:18 Physical Exam Const alert, oriented x3 and no apparent distress General Appearance: cooperative and comfortable HEENT normocephalic Eyes General Eye: normal appearance of both eyes Neck General: normal visual inspection Lymph Lymphatic: no lymphadenopathy noted and no lymphedema noted Resp normal respiratory effort Cardio regular rate and regular rhythm Extremity normal capillary refill, no joint enlargement, no calf tenderness and no pedal edema Skin no rashes or lesions noted, skin turgor normal and no jaundice Wound Narrative: Right posterior leg abrasion, stable, no local signs of infection.? Right anterior and anterior medial ulceration secondary to blister formation. No signs of infection. Left lower extremity heel decubitus ulceration.? Ulcerative site demonstrates pink wound base with scant fibrotic tissue throughout the wound bed with serosanguineous drainage and no signs of infection.? No palpable fluctuance noted to the left heel.? Ulcerative site does have hyperkeratotic tissue at the wound margins.? Ulcerative site demonstrates closure centrally with new skin formation. Left lower extremity circumferential wounds secondary to blister formation.? Site is stable no signs of infection. Neuro oriented x3 and moves all extremities Motor Exam: strength 5/5 throughout Debridement Note Debridement Note Wound debrided: Left plantar heel Laterality: Left Wound Grade/Stage: Glasgow stage II Type of Debridement: Excisional debridement Anesthesia Used: 5% Lidocaine Gel Depth: Down to and including healthy tissue and in the subcutaneous layer Percentage of wound debrided: 100 Instrument Used: 3mm curette Tissue Removed: Fibrous, devitalized subcutaneous, biofilm, slough Severity: Fat Layer Exposed Amount of bleeding with debridement: Mild Bleeding Controlled with: Compression and gauze Patient tolerated procedure: Patient tolerated procedure well Post-Debridement Measurements and Additional Note: Post-Debridement Measurements/Treatment WC - Nurse 1 - General Ulcer Assessment Start: 11/02/21 09:28 Freq: Status: Active Protocol: WC.LOWEXT Activity Type Activity Date Activity User E-sign Co-sign Detail Recorded Client Recorded Date Recorded By Document 11/02/21 09:28 KR [id number] 11/02/21 09:32 KR Document 11/07/21 11:59 DL [id number] 11/07/21 12:05 DL Document 11/09/21 09:18 KR [id number] 11/09/21 09:20 KR 11/02/21 11/07/21 11/09/21 09:28 11:59 09:18 - Today's Visit Information Type of service Follow-up Visit Nurse-only Follow-up Visit (Physician/BOY'S ADVISER Visit (Physician/BOY'S ADVISER ) ) Arrival Mode Walker Ambulatory, Ambulatory, Walker Walker Transfer Assistance None Patient Identification Verified (Name & Yes Yes Yes ) Patient Requires Transmission-Based No Precautions Vital Signs Temperature (97.8 F-99.1 F) 97.3 F L 96.9 F L 97.4 F L Temperature Source Temporal Temporal Temporal Pulse Rate (60-100) 67 69 68 Pulse Location Monitor Monitor Monitor Respiratory Rate (12-18) 20 H Respiratory rate source Observation Blood Pressure (90/60-120/80) 140/75 H 104/48 L 128/79 H Blood Pressure Mean (mm Hg) 96 66 95 Source Manual Monitor Monitor Position Supine Semi-Fowlers Blood Pressure Location Right Arm Left Arm Comment Nurse Visit Epifix intact. 3M reapplied History Since Last Visit- (Skip if this is Patient's initial visit) Have you changed medications since your No No No last visit? Any new allergies or adverse reactions No No No Had a fall/change in ADL's that may No No No increase risk of falls Signs or symptoms of abuse and/or No No No neglect since last visit Have you been in the hospital since your No No No last visit? Has dressing in place as prescribed Yes Yes Yes Has compression in place as prescribed Yes Yes Yes Has offloadiing in place as prescribed N/A N/A N/A Experienced any changes in pain level or No No No management Left Footwear Regular Shoe Regular Shoe Right Footwear Regular Shoe Regular Shoe Pain Scale: 0-10 Numeric Is Patient Pain Free? Yes Yes Yes - Nurse 1 - General Ulcer Measurement Start: 11/02/21 09:28 Freq: Status: Active Protocol: Activity Type Activity Date Activity User E-sign Co-sign Detail Recorded Client Recorded Date Recorded By Document 11/02/21 09:28 KR [id number] 11/02/21 09:32 KR Document 11/07/21 11:59 DL [id number] 11/07/21 12:05 DL Document 11/09/21 09:18 KR [id number] 11/09/21 09:20 KR 11/02/21 11/07/21 11/09/21 09:28 11:59 09:18 Wound Center Nurse 1 6-left heel -Current Size (cm) - Length 2 1.6 -Current Size (cm) - Width 2.7 1.2 -Current Size (cm) - Depth 0.1 0.1 -Total Square Cm 5.4 1.92 -Photo Taken No -Exudate Amt Medium Medium -Exudate Type Serosanguineous Serosanguineous -Wound Margin Distinct, Distinct, Outline Outline Attached Attached -Granulation Amt Medium (34-66%) Large (67-100%) -Granulation Quality Erhard Red -Necrosis Amt Small (1-33%) None Present (0 %) -Necrotic Tissue Type Adherent Slough -Texture (Bren-wound Skin Appearance) Assessed, No Abnormality Assessed, Scarring Scarring -Moisture (Bren-wound Skin Appearance) No Abnormality, No Abnormality No Abnormality, Assessed Assessed -Color (Bren-wound Skin Appearance) No Abnormality, No Abnormality No Abnormality, Assessed Assessed -Temperature (Bren-wound Skin No Abnormality No Abnormality No Abnormality Appearance) (Pt Warm) (Pt Warm) (Pt Warm) -Tenderness on Palpation (Bren-wound No No No Skin Appearance) -Ulcer Cleansing Soap and Water Soap and Water Soap and Water -Foul Odor after Cleansing No No -Anesthetic Used 4% Lidocaine 5% Lidocaine Solution Gel -Wound Comment(s) LE only washed with soap and water, Epifix dry and intact. Right Calf (cm) 37 Right Ankle (cm) 26.5 Left Calf (cm) 30.5 Left Ankle (cm) 24.2 WC - Nurse 2 - General Ulcer CM Notes Start: 11/02/21 09:28 Freq: Status: Active Protocol: Activity Type Activity Date Activity User E-sign Co-sign Detail Recorded Client Recorded Date Recorded By Document 11/02/21 12:30 PL [id number] 11/02/21 12:32 PL Document 11/09/21 10:10 PL [id number] 11/09/21 10:12 PL 11/02/21 11/09/21 12:30 10:10 Wound Center Nurse 2 6-left heel -Time 10:04 09:41 -Correct Patient Yes Yes -Correct Side, Site, Position Yes Yes -Correct Procedure Yes Yes -Procedure Performed Yes Yes -Type of Procedure Debridement Debridement -Clinical Debridement Subcutaneous Subcutaneous -Tissue Removed Subcutaneous Subcutaneous -Post Debridement (cm) - Length 2.5 1.8 -Post Debridement (cm) - Width 1.7 1.8 -Post Debridement (cm) - Depth 0.2 0.1 -Total Square (Post) (cm) 4.25 3.24 -Area of Debridement (cm) - Length 2.5 1.8 -Area of Debridement (cm) - Width 1.7 1.8 -Total Square (Area) (cm) 4.25 3.24 -Tunneling No No -Undermining/Tunneling No No -Circular Undermining No No -Wound/Ulcer Outcome Not Healed Not Healed -Ulcer Cleansing Rinsed/ Rinsed/ Irrigated with Irrigated with Saline Saline -Foul Odor after Cleansing No No -Bioengineered Tissue Yes Yes -Type of Bioengineered Tissue Epifix Epifix -Expiration Date 07/30/26 07/30/26 -Product Lot Number [id number] -Percent Used 100 100 -Bleeding Controlled with Pressure Pressure -Treatment Response Procedure Procedure Tolerated Well Tolerated Well -Debridement - Subq, 1st 20sq cm No No -Apply Skin Sub - 1st 25 sq cm - Feet 1 1 -Epifix (per sq cm) 4 4 Pain Scale: 0-10 Numeric Is Patient Pain Free? Yes Yes WC - Nurse 3 - General Ulcer D/C NN Start: 11/02/21 09:28 Freq: Status: Active Protocol: Activity Type Activity Date Activity User E-sign Co-sign Detail Recorded Client Recorded Date Recorded By Document 11/02/21 11:29 AK [id number] 11/02/21 11:31 AK Document 11/07/21 11:59 DL [id number] 11/07/21 12:05 DL Document 11/09/21 10:07 [id number] 11/09/21 10:07 JAUN 11/02/21 11/07/21 11/09/21 11:29 11:59 10:07 Wound Care Nurse 3 6-left heel -Ulcer Cleansing Not Cleansed Rinsed/ Irrigated with Saline -Foul Odor after Cleansing No No -Negative Pressure Wound Therapy N/A -Other Dressing ABD Epifix intact -Primary Dressing Covered/Secured with Dry Gauze & Dry Gauze & Dry Gauze & Roll Gauze, Roll Gauze, Roll Gauze, Secured with Secured with Secured with Tape Tape Tape -Other Covering nurses hat/ abd pad padding to ant ankle Bilateral -Lotion applied to leg before No Yes compression wrap -Multi-Layered Wrap Application Multi-Layer Multi-Layer Multi-Layer Comp - Bilat ($ Comp - Bilat ($ Comp - Bilat ($ ) ) ) Treatment Response Procedure Tolerated Well Vital Signs Temperature (97.8 F-99.1 F) 96.9 F L Temperature Source Temporal Pulse Rate (60-100) 69 Pulse Location Monitor Respiratory Rate (12-18) 20 H Respiratory rate source Observation Blood Pressure (90/60-120/80) 104/48 L Blood Pressure Mean (mm Hg) 66 Source Monitor Comment Nurse Visit Epifix intact. 3M reapplied Pain Scale: 0-10 Numeric Is Patient Pain Free? Yes Yes Yes WC - Visit Discharge Discharge Condition Stable Stable Stable Ambulatory Status Ambulatory Ambulatory, Ambulatory, Walker Walker Transportation Private Auto Private Auto Medication Reconcilliation completed & Yes Yes provided to patient/care provider Clinical Summary of Care Provided Yes Yes Assessment/Plan Assessment/Plan (1) Pressure ulcer of left heel, stage 2: CODE(S): L89.622 - Pressure ulcer of left heel, stage 2 (2) Chronic kidney disease (CKD) stage G3a/A2, moderately decreased glomerular filtration rate (GFR) between 45-59 mL/min/1.73 square meter and albuminuria creatinine ratio between 30-299 mg/g: CODE(S): N18.31 - Chronic kidney disease, stage 3a (3) Pain in left foot: CODE(S): M79.672 - Pain in left foot (4) Type II diabetes mellitus: CODE(S): E11.9 - Type 2 diabetes mellitus without complications QUALIFIERS: Diabetes mellitus shelter insulin use: unspecified shelter insulin use status Diabetes mellitus complication status: with neurologic complications Diabetes mellitus complication detail: with polyneuropathy Qualified Code(s): E11.42 - Type 2 diabetes mellitus with diabetic polyneuropathy (5) Bilateral edema of lower extremity: CODE(S): R60.0 - Localized edema PLAN: Plan Patient seen and evaluated. Ulceration to the left plantar heel demonstrates a pink wound base with healthy granular tissue. Ulceration site demonstrates no signs of infection.? Wound margins healthy and atrophic.? Ulceration site was sharply debrided as stated in the clinical panel above. This was tolerated well.? Ulcerative site measures 1.6 cm x 1.2 cm x 0.1 cm I applied epi fix graft #6 to the plantar left heel.? Site anchored with Adaptic touch and Steri-Strips.? Ulcer site continues to demonstrate good healing progression with continued reduction in size. She has multiple wounds secondary to blister formations to the left and right extremity secondary to edema. These are currently healed and stable with no signs of infection. Left lower extremity dressed with 3M compression wrap.?Right leg dressed with 3M compression wrap. I discussed continued elevation of her legs aid in edema reduction and to remain compliant with her compression dressings. She continues to demonstrate progression in healing status of multiple wounds, with bilateral lower extremity edema remaining well-controlled today. She will return to the wound care center on Saturday?for a dressing change to bilateral leg. I discussed with her localized signs of infection.? She is to observe for any erythema or redness moving up the leg, malodor to the ulceration site, purulent drainage from the ulceration site, increased pain to the left heel, or if she experiences any nausea, vomiting, fever, chills or other constitutional symptoms that these are signs of a progressing infection and she needs to report to the ED.? She voices understanding of this. The following work up and care recommendations were made: Dressing: Epi fix graft left heel; Adaptic to blister sites with Aquacel Ag and Suprasorb, left leg 3M compression wrap; right lower extremity 3M compression wrap Wash: Do not get wet Tissue growth optimization: Epi fix Offload: Offloading surgical shoe with heel cut out Vascular: Palpable pedal pulses Edema: Elevation of lower extremities and Compression wrap left lower extremity.? 3M compression wrap bilateral legs Infection: No localized signs of infection Pain: Patient may take [id number] Tylenol extra strength for pain control Host factors: Diabetes mellitus type 2, history of osteomyelitis left heel ? I answered all the patient's questions.? To return to the wound healing center in 1 week or call sooner if the patient has any questions or concerns. ? Note: vushaper speech recognition rural health consultant software was used to create portions of this document. Sound-alike and misspelled words, as well as other rural health consultant errors may be contained in the documentation.
[2021-11-14 14:55] VITALS: BP 105/62; PULSE 91; RESP 16; TEMP 36.3
[2021-11-21 14:50] VITALS: BP 132/69; PULSE 70; RESP 16; TEMP 35.4
[2021-11-23 09:09] VITALS: BP 91/60; PULSE 67; RESP 18; TEMP 36.1
--- NOTE | 2021-11-23 13:05 | PCM.WC.PN ---
History of Present Illness Date of Service: 11/23/21 Chief Complaint: left heel ulcer left ankle ulcer- healed History of Wound: In October 2019, patient had rubbing in shoes while shopping which led to a blister that developed into an ulceration. Patient was then seen by Dewey Amezquita.P.Usha. for wound care. Patient then became infected and was admitted to the hospital. Patient was noted to have OM on MRI. Patient wanted to avoid surgery so a intermediate designer course of appropriate IV antibiotics was the treatment chosen. Patient was also noted to have hyperglycemia and has worked with hospitalist and PCP to try to get better control. Blood sugar levels remain elevated. Patient also had LEAS obtained in the hospital which suggested patient had the proper blood flow to allow healing. Patient has since finished intermediate designer course of antibiotics. Patient has since been seen on a weekly basis in office with progression and regression of wound noted over the weeks. Patient has tried various dressing options including wet to dry and santyl. The most progress was noted with Santyl but patient ran out and was unable to refill due to insurance issues. During which time the wound regressed. She also has an offloading surgical shoe and offloading boot to relieve pressure. Patient care is henceforth being carried out at the wound care center. Patient not currently on any antibiotics. Patient has since began skin graft aplications significant improvement is been noted to her foot overall. Patient has finished epifix graft applications with some very small remaining wound noted to left heel. Patient has new wounds noted to bilateral third digits. The right 3rd digit wound has healed. Her left ankle ulcer remains healed Patient relates that ambulation is getting easier and she is rebuilding her strength slowly. She has not had any worsening of minor remaining heel wound since beginning ambulation again. 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 Her has been helping her change the dressings daily to the left heel. She presents to the wound care center today for continued care of her left heel ulceration. Subjective Subjective This is a 61-year-old female who presents for follow-up to the wound care center for a left heel ulceration and circumferential leg wounds bilateral.? She states she is continuing keeping her feet elevated and has noticed that her swelling remains decreased.? She admits to a new wound on the dorsal aspect of the third digit right foot after bumping her toe against some furniture. She denies any constitutional symptoms today. She states she missed her visit last week due to being ill and removed her dressings and did not rewrap for swelling. She has been changing her outer layer dressings daily to the heel.? She has been coming to the wound care center for nurse visits to perform dressing changes.?She has no further complaints today. Objective Data Objective Data Vital Signs: Vital Signs Temp Pulse Resp BP O2 Del Method 97 F L 67 18 91/60 Room Air 11/23/21 09:09 11/23/21 09:09 11/23/21 09:09 11/23/21 09:09 11/23/21 09:09 Oxygen Delivery Method Room Air Physical Exam Const alert, oriented x3 and no apparent distress General Appearance: cooperative and comfortable HEENT normocephalic Eyes General Eye: normal appearance of both eyes Neck General: normal visual inspection Lymph Lymphatic: no lymphadenopathy noted and no lymphedema noted Resp normal respiratory effort Cardio regular rate and regular rhythm Extremity normal capillary refill, no joint enlargement, no calf tenderness and no pedal edema Skin no rashes or lesions noted, skin turgor normal and no jaundice Wound Narrative: Right lower extremity: Circumferential leg wounds secondary to blister formation remain healed at this time. Wound noted to the dorsal aspect of the third digit secondary to trauma. Ulceration is superficial and demonstrates no signs of infection. Left lower extremity heel decubitus ulceration.? Ulcerative site demonstrates pink wound base with scant fibrotic tissue throughout the wound bed with serosanguineous drainage and no signs of infection.? No palpable fluctuance noted to the left heel.? Ulcerative site does have hyperkeratotic tissue at the wound margins.? Ulcerative site demonstrates closure centrally with new skin formation. Left lower extremity circumferential wounds secondary to blister formation.? Site is stable no signs of infection. Neuro oriented x3 and moves all extremities Motor Exam: strength 5/5 throughout Debridement Note Debridement Note Wound debrided: Left heel decubitus ulceration Laterality: Left Wound Grade/Stage: Glasgow stage II Type of Debridement: Excisional debridement Anesthesia Used: 5% Lidocaine Gel Depth: Down to and including healthy tissue and in the subcutaneous layer Percentage of wound debrided: 100 Instrument Used: 3mm curette Tissue Removed: Fibrous, devitalized subcutaneous, biofilm, slough Severity: Fat Layer Exposed Amount of bleeding with debridement: Mild Bleeding Controlled with: Compression and gauze Patient tolerated procedure: Patient tolerated procedure well Post-Debridement Measurements and Additional Note: Post-Debridement Measurements/Treatment - Nurse 1 - General Ulcer Assessment Start: 11/02/21 09:28 Freq: Status: Active Protocol: SAMARIA.LEDAT Activity Type Activity Date Activity User E-sign Co-sign Detail Recorded Client Recorded Date Recorded By Document 11/02/21 09:28 KR [id number] 11/02/21 09:32 KR Document 11/07/21 11:59 DL [id number] 11/07/21 12:05 DL Document 11/09/21 09:18 KR [id number] 11/09/21 09:20 KR Document 11/14/21 14:55 BMF [id number] 11/14/21 15:04 BMF Document 11/21/21 14:50 BMF [id number] 11/21/21 14:53 BM Document 11/23/21 09:09 RI [id number] 11/23/21 09:37 MT 11/02/21 11/07/21 11/09/21 09:28 11:59 09:18 - Today's Visit Information Type of service Follow-up Visit Nurse-only Follow-up Visit (Physician/[employer]IVATE [employer] EXCHANGE SERVICE ADVISOR Visit (Physician/PRIVATE BRANCH EXCHANGE SERVICE ADVISOR ) ) Arrival Mode Walker Ambulatory, Ambulatory, Walker Walker Transfer Assistance None Patient Identification Verified (Name & Yes Yes Yes ) Patient Requires Transmission-Based No Precautions Safety Precautions Vital Signs Temperature (97.8 F-99.1 F) 97.3 F L 96.9 F L 97.4 F L Temperature Source Temporal Temporal Temporal Pulse Rate (60-100) 67 69 68 Pulse Location Monitor Monitor Monitor Respiratory Rate (12-18) 20 H Respiratory rate source Observation Oxygen Delivery Method Blood Pressure (90/60-120/80) 140/75 H 104/48 L 128/79 H Blood Pressure Mean (mm Hg) 96 66 95 Source Manual Monitor Monitor Position Supine Semi-Fowlers Blood Pressure Location Right Arm Left Arm Comment Nurse Visit Epifix intact. 3M reapplied History Since Last Visit- (Skip if this is Patient's initial visit) Have you changed medications since your No No No last visit? Any new allergies or adverse reactions No No No Had a fall/change in ADL's that may No No No increase risk of falls Signs or symptoms of abuse and/or No No No neglect since last visit Have you been in the hospital since your No No No last visit? Has dressing in place as prescribed Yes Yes Yes Has compression in place as prescribed Yes Yes Yes Has offloadiing in place as prescribed N/A N/A N/A Experienced any changes in pain level or No No No management Left Footwear Regular Shoe Regular Shoe Right Footwear Regular Shoe Regular Shoe Pain Scale: 0-10 Numeric Is Patient Pain Free? Yes Yes Yes 11/14/21 11/21/21 11/23/21 14:55 14:50 09:09 WC - Today's Visit Information Type of service Nurse-only Nurse-only Follow-up Visit Visit Visit (Physician/PRIVATE [employer]AN[employer] EXCHANGE SERVICE ADVISOR ) Arrival Mode Ambulatory, Ambulatory, Ambulatory, Walker Walker Walker Transfer Assistance None None Patient Identification Verified (Name & Yes Yes Yes ) Patient Requires Transmission-Based No No Precautions Safety Precautions Fall Prevention Vital Signs Temperature (97.8 F-99.1 F) 97.3 F L 95.7 F L 97 F L Temperature Source Temporal Temporal Temporal Pulse Rate (60-100) 91 70 67 Pulse Location Monitor Monitor Monitor Respiratory Rate (12-18) 16 16 18 Respiratory rate source Observation Observation Observation Oxygen Delivery Method Room Air Room Air Room Air Blood Pressure (90/60-120/80) 105/62 132/69 H 91/60 Blood Pressure Mean (mm Hg) 76 90 70 Source Monitor Monitor Monitor Position Sitting Sitting Sitting Blood Pressure Location Right Arm Right Arm Left Arm Comment History Since Last Visit- (Skip if this is Patient's initial visit) Have you changed medications since your No No last visit? Any new allergies or adverse reactions No No Had a fall/change in ADL's that may No No increase risk of falls Signs or symptoms of abuse and/or No No neglect since last visit Have you been in the hospital since your No No last visit? Has dressing in place as prescribed Yes No Has compression in place as prescribed Yes No Has offloadiing in place as prescribed N/A N/A Experienced any changes in pain level or No No management Left Footwear Regular Shoe Regular Shoe Regular Shoe Right Footwear Regular Shoe Regular Shoe Regular Shoe Pain Scale: 0-10 Numeric Is Patient Pain Free? Yes Yes Yes WC - Nurse 1 - General Ulcer Measurement Start: 11/02/21 09:28 Freq: Status: Active Protocol: Activity Type Activity Date Activity User E-sign Co-sign Detail Recorded Client Recorded Date Recorded By Document 11/02/21 09:28 KR [id number] 11/02/21 09:32 KR Document 11/07/21 11:59 DL [id number] 11/07/21 12:05 DL Document 11/09/21 09:18 KR [id number] 11/09/21 09:20 KR Document 11/14/21 14:55 BMF [id number] 11/14/21 15:04 BMF Document 11/21/21 14:50 BMF [id number] 11/21/21 14:53 BMF Document 11/23/21 09:09 MT [id number] 11/23/21 09:37 MT 11/02/21 11/07/21 11/09/21 09:28 11:59 09:18 Wound Center Nurse 1 #16 Left Circumferential Abad -Current Size (cm) - Length -Current Size (cm) - Width -Current Size (cm) - Depth -Total Square Cm -Exudate Amt -Exudate Type -Wound Margin -Granulation Amt -Granulation Quality -Necrosis Amt -Necrotic Tissue Type -Texture (Bren-wound Skin Appearance) -Moisture (Bren-wound Skin Appearance) -Color (Bren-wound Skin Appearance) -Temperature (Bren-wound Skin Appearance) -Tenderness on Palpation (Bren-wound Skin Appearance) -Ulcer Cleansing -Anesthetic Used #15 Right Second Toe -Current Size (cm) - Length -Current Size (cm) - Width -Current Size (cm) - Depth -Total Square Cm 6-left heel -Current Size (cm) - Length 2 1.6 -Current Size (cm) - Width 2.7 1.2 -Current Size (cm) - Depth 0.1 0.1 -Total Square Cm 5.4 1.92 -Photo Taken No -Exudate Amt Medium Medium -Exudate Type Serosanguineous Serosanguineous -Wound Margin Distinct, Distinct, Outline Outline Attached Attached -Granulation Amt Medium (34-66%) Large (67-100%) -Granulation Quality Igo Red -Slough/Fibrin -Necrosis Amt Small (1-33%) None Present (0 %) -Necrotic Tissue Type Adherent Slough -Texture (Bren-wound Skin Appearance) Assessed, No Abnormality Assessed, Scarring Scarring -Moisture (Bren-wound Skin Appearance) No Abnormality, No Abnormality No Abnormality, Assessed Assessed -Color (Bren-wound Skin Appearance) No Abnormality, No Abnormality No Abnormality, Assessed Assessed -Temperature (Bren-wound Skin No Abnormality No Abnormality No Abnormality Appearance) (Pt Warm) (Pt Warm) (Pt Warm) -Tenderness on Palpation (Bren-wound No No No Skin Appearance) -Ulcer Cleansing Soap and Water Soap and Water Soap and Water -Foul Odor after Cleansing No No -Anesthetic Used 4% Lidocaine 5% Lidocaine Solution Gel -Wound Comment(s) LE only washed with soap and water, Epifix dry and intact. Lower Limb Edema Present Right Calf (cm) 37 Right Ankle (cm) 26.5 Left Calf (cm) 30.5 Left Ankle (cm) 24.2 11/14/21 11/21/21 11/23/21 14:55 14:50 09:09 Wound Center Nurse 1 #16 Left Circumferential Abad -Current Size (cm) - Length 7 -Current Size (cm) - Width 23 -Current Size (cm) - Depth 0.1 -Total Square Cm 161 -Exudate Amt Small -Exudate Type Serosanguineous -Wound Margin Flat & Intact -Granulation Amt Large (67-100%) -Granulation Quality Pale,Igo -Necrosis Amt Small (1-33%) -Necrotic Tissue Type Adherent Slough -Texture (Bren-wound Skin Appearance) Assessed -Moisture (Bren-wound Skin Appearance) Assessed -Color (Bren-wound Skin Appearance) Assessed -Temperature (Bren-wound Skin No Abnormality Appearance) (Pt Warm) -Tenderness on Palpation (Bren-wound No Skin Appearance) -Ulcer Cleansing Soap and Water -Anesthetic Used 4% Lidocaine Solution #15 Right Second Toe -Current Size (cm) - Length 0.5 -Current Size (cm) - Width 1.5 -Current Size (cm) - Depth 0.1 -Total Square Cm 0.75 6-left heel -Current Size (cm) - Length 2 -Current Size (cm) - Width 1.5 -Current Size (cm) - Depth 0.1 -Total Square Cm 3.0 -Photo Taken -Exudate Amt Small -Exudate Type Serosanguineous -Wound Margin Flat & Intact -Granulation Amt Large (67-100%) -Granulation Quality Pale,Igo -Slough/Fibrin Yes -Necrosis Amt Small (1-33%) -Necrotic Tissue Type -Texture (Bren-wound Skin Appearance) Assessed -Moisture (Bren-wound Skin Appearance) Assessed -Color (Bren-wound Skin Appearance) Assessed -Temperature (Bren-wound Skin No Abnormality Appearance) (Pt Warm) -Tenderness on Palpation (Bren-wound No Skin Appearance) -Ulcer Cleansing Soap and Water -Foul Odor after Cleansing No -Anesthetic Used 4% Lidocaine Solution -Wound Comment(s) PT MISSED LAST APPT. IN TODAY. WEARING POOLY WRAPPED ACES, W / AQUACEL AG. EPIFIX CAME OFF AT HOME. DISCUSSED W/ SHIRA MARIN. OK TO APPLY AQUACEL AG TO HEEL WOUND. Lower Limb Edema Present Yes Yes Yes Right Calf (cm) 35.2 35.6 35.6 Right Ankle (cm) 23.3 23.5 23.5 Left Calf (cm) 35 39.1 39.1 Left Ankle (cm) 21.5 21.2 21.2 WC - Nurse 2 - General Ulcer CM Notes Start: 11/02/21 09:28 Freq: Status: Active Protocol: Activity Type Activity Date Activity User E-sign Co-sign Detail Recorded Client Recorded Date Recorded By Document 11/02/21 12:30 PL [id number] 11/02/21 12:32 PL Document 11/09/21 10:10 PL [id number] 11/09/21 10:12 PL Document 11/23/21 12:51 PL [id number] 11/23/21 12:55 PL 11/02/21 11/09/21 11/23/21 12:30 10:10 12:51 Wound Center Nurse 2 #16 Left Circumferential Abad -Procedure Performed No -Wound/Ulcer Outcome Healed- Epithelialized #15 Right Second Toe -Time 09:53 -Correct Patient Yes -Correct Side, Site, Position Yes -Correct Procedure Yes -Procedure Performed Yes -Type of Procedure Debridement -Clinical Debridement Subcutaneous -Tissue Removed Subcutaneous -Post Debridement (cm) - Length 0.5 -Post Debridement (cm) - Width 1.5 -Post Debridement (cm) - Depth 0.1 -Total Square (Post) (cm) 0.75 -Area of Debridement (cm) - Length 0.5 -Area of Debridement (cm) - Width 1.5 -Total Square (Area) (cm) 0.75 -Tunneling No -Undermining/Tunneling No -Circular Undermining No -Wound/Ulcer Outcome Not Healed -Ulcer Cleansing Rinsed/ Irrigated with Saline -Foul Odor after Cleansing No -Bioengineered Tissue No -Bleeding Controlled with Pressure -Treatment Response Procedure Tolerated Well -Debridement - Subq, 1st 20sq cm Yes 6-left heel -Time 10:04 09:41 09:53 -Correct Patient Yes Yes Yes -Correct Side, Site, Position Yes Yes Yes -Correct Procedure Yes Yes Yes -Procedure Performed Yes Yes Yes -Type of Procedure Debridement Debridement Debridement -Clinical Debridement Subcutaneous Subcutaneous Subcutaneous -Tissue Removed Subcutaneous Subcutaneous Subcutaneous -Post Debridement (cm) - Length 2.5 1.8 2.0 -Post Debridement (cm) - Width 1.7 1.8 1.5 -Post Debridement (cm) - Depth 0.2 0.1 0.1 -Total Square (Post) (cm) 4.25 3.24 3.00 -Area of Debridement (cm) - Length 2.5 1.8 2 -Area of Debridement (cm) - Width 1.7 1.8 1.5 -Total Square (Area) (cm) 4.25 3.24 3.0 -Tunneling No No No -Undermining/Tunneling No No No -Circular Undermining No No No -Wound/Ulcer Outcome Not Healed Not Healed Not Healed -Ulcer Cleansing Rinsed/ Rinsed/ Rinsed/ Irrigated with Irrigated with Irrigated with Saline Saline Saline -Foul Odor after Cleansing No No No -Bioengineered Tissue Yes Yes Yes -Type of Bioengineered Tissue Epifix Epifix Epifix -Expiration Date 07/30/26 07/30/26 08/30/26 -Product Lot Number [id number] -Percent Used 100 100 100 -Lot number of Saline Used [id number] -Bleeding Controlled with Pressure Pressure Pressure -Treatment Response Procedure Procedure Procedure Tolerated Well Tolerated Well Tolerated Well -Debridement - Subq, 1st 20sq cm No No No -Apply Skin Sub - 1st 25 sq cm - Feet 1 1 1 -Epifix (per sq cm) 4 4 4 Pain Scale: 0-10 Numeric Is Patient Pain Free? Yes Yes Yes WC - Nurse 3 - General Ulcer D/C NN Start: 11/02/21 09:28 Freq: Status: Active Protocol: Activity Type Activity Date Activity User E-sign Co-sign Detail Recorded Client Recorded Date Recorded By Document 11/02/21 11:29 AK [id number] 11/02/21 11:31 AK Document 11/07/21 11:59 DL [id number] 11/07/21 12:05 DL Document 11/09/21 10:07 JF [id number] 11/09/21 10:07 JF Document 11/14/21 14:55 BMF [id number] 11/14/21 15:04 BMF Document 11/21/21 14:50 BMF [id number] 11/21/21 14:53 [facility] Document 11/23/21 10:25 MT [id number] 11/23/21 10:28 MT 11/02/21 11/07/21 11/09/21 11:29 11:59 10:07 Wound Care Nurse 3 #16 Left Circumferential Abad -Ulcer Cleansing -Other Dressing -Primary Dressing Covered/Secured with #15 Right Second Toe -Ulcer Cleansing -Other Dressing -Primary Dressing Covered/Secured with 6-left heel -Ulcer Cleansing Not Cleansed Rinsed/ Irrigated with Saline -Foul Odor after Cleansing No No -Negative Pressure Wound Therapy N/A -Primary Dressing Applied -Other Dressing ABD Epifix intact -Primary Dressing Covered/Secured with Dry Gauze & Dry Gauze & Dry Gauze & Roll Gauze, Roll Gauze, Roll Gauze, Secured with Secured with Secured with Tape Tape Tape -Other Covering nurses hat/ abd pad padding to ant ankle -Aquacel AG 4x4 Bilateral -Lotion applied to leg before No Yes compression wrap -Multi-Layered Wrap Application Multi-Layer Multi-Layer Multi-Layer Comp - Bilat ($ Comp - Bilat ($ Comp - Bilat ($ ) ) ) -Other Treatment Response Procedure Tolerated Well Vital Signs Temperature (97.8 F-99.1 F) 96.9 F L Temperature Source Temporal Pulse Rate (60-100) 69 Pulse Location Monitor Respiratory Rate (12-18) 20 H Respiratory rate source Observation Oxygen Delivery Method Blood Pressure (90/60-120/80) 104/48 L Blood Pressure Mean (mm Hg) 66 Source Monitor Position Blood Pressure Location Comment Nurse Visit Epifix intact. 3M reapplied Pain Scale: 0-10 Numeric Is Patient Pain Free? Yes Yes Yes WC - Visit Discharge Discharge Condition Stable Stable Stable Ambulatory Status Ambulatory Ambulatory, Ambulatory, Walker Walker Transportation Private Auto Private Auto Medication Reconcilliation completed & Yes Yes provided to patient/care provider Clinical Summary of Care Provided Yes Yes 11/14/21 11/21/21 11/23/21 14:55 14:50 10:25 Wound Care Nurse 3 #16 Left Circumferential Abad -Ulcer Cleansing Soap and Water -Other Dressing adaptic and 3M -Primary Dressing Covered/Secured with Dry Gauze, Secured with Tape #15 Right Second Toe -Ulcer Cleansing Soap and Water -Other Dressing adaptic and 3m -Primary Dressing Covered/Secured with Dry Gauze, Secured with Tape 6-left heel -Ulcer Cleansing Soap and Water -Foul Odor after Cleansing No -Negative Pressure Wound Therapy -Primary Dressing Applied Aquacel AG 4x4 -Other Dressing EPIFIX LEFT HEEL HAT ADPATIC AND INTACT, ABD GAUZE, 3M -Primary Dressing Covered/Secured with Dry Gauze Dry Gauze Dry Gauze & Roll Gauze, Secured with Tape -Other Covering 3M, DRGS PER MW RN -Aquacel AG 4x4 1 Bilateral -Lotion applied to leg before compression wrap -Multi-Layered Wrap Application Multi-Layer Multi-Layer Multi-Layer Comp - Bilat ($ Comp - Bilat ($ Comp - Bilat ($ ) ) ) -Other 3M PER MW RN Treatment Response Procedure Procedure Tolerated Well Tolerated Well Vital Signs Temperature (97.8 F-99.1 F) 97.3 F L 95.7 F L Temperature Source Temporal Temporal Pulse Rate (60-100) 91 70 Pulse Location Monitor Monitor Respiratory Rate (12-18) 16 16 Respiratory rate source Observation Observation Oxygen Delivery Method Room Air Room Air Blood Pressure (90/60-120/80) 105/62 132/69 H Blood Pressure Mean (mm Hg) 76 90 Source Monitor Monitor Position Sitting Sitting Blood Pressure Location Right Arm Right Arm Comment Pain Scale: 0-10 Numeric Is Patient Pain Free? Yes Yes Yes WC - Visit Discharge Discharge Condition Stable Stable Stable Ambulatory Status Ambulatory, Ambulatory, Ambulatory, Walker Walker Walker Transportation Private Auto Medication Reconcilliation completed & No provided to patient/care provider Clinical Summary of Care Provided Yes Additional Wound Wound debrided: Dorsal third digit Laterality: Right Wound Grade/Stage: Glasgow stage I Type of Debridement: Excisional debridement Anesthesia Used: 5% Lidocaine Gel Depth: Down to and including healthy tissue and in the subcutaneous layer Percentage of wound debrided: 100 Instrument Used: 3mm curette Tissue Removed: Fibrous, devitalized subcutaneous, biofilm, slough Severity: Fat Layer Exposed Amount of bleeding with debridement: Mild Bleeding Controlled with: Compression and gauze Patient tolerated procedure: Patient tolerated procedure well Assessment/Plan Assessment/Plan (1) Pressure ulcer of left heel, stage 2: CODE(S): L89.622 - Pressure ulcer of left heel, stage 2 (2) Chronic kidney disease (CKD) stage G3a/A2, moderately decreased glomerular filtration rate (GFR) between 45-59 mL/min/1.73 square meter and albuminuria creatinine ratio between 30-299 mg/g: CODE(S): N18.31 - Chronic kidney disease, stage 3a (3) Pain in left foot: CODE(S): M79.672 - Pain in left foot (4) Type II diabetes mellitus: CODE(S): E11.9 - Type 2 diabetes mellitus without complications QUALIFIERS: Diabetes mellitus intermediate designer insulin use: unspecified mcfp insulin use status Diabetes mellitus complication status: with neurologic complications Diabetes mellitus complication detail: with polyneuropathy Qualified Code(s): E11.42 - Type 2 diabetes mellitus with diabetic polyneuropathy (5) Bilateral edema of lower extremity: CODE(S): R60.0 - Localized edema PLAN: Plan Patient seen and evaluated. Ulceration to the left plantar heel demonstrates a pink wound base with healthy granular tissue. Ulceration site demonstrates no signs of infection.? Wound margins healthy and atrophic.? Ulceration site was sharply debrided as stated in the clinical panel above. This was tolerated well.? Ulcerative site measures 1.6 cm x 1.4 cm x 0.1 cm I applied epi fix graft #7 to the plantar left heel.? Site anchored with Adaptic touch and Steri-Strips.? Ulcer site continues to demonstrate good healing progression with continued reduction in size. She demonstrates new wound to the dorsal aspect of the right third digit. Wound site is superficial in nature secondary to trauma with no signs of infection. Site underwent debridement as noted in clinical panel above. Dry sterile dressings applied She has multiple wounds secondary to blister formations to the left and right extremity secondary to edema. These are currently healed and stable with no signs of infection. Left lower extremity dressed with 3M compression wrap.?Right leg dressed with 3M compression wrap. I discussed continued elevation of her legs aid in edema reduction and to remain compliant with her compression dressings. She continues to demonstrate progression in healing status of multiple wounds, with bilateral lower extremity edema remaining well-controlled today. She will return to the wound care center on Saturday?for a dressing change to bilateral leg. I discussed with her localized signs of infection.? She is to observe for any erythema or redness moving up the leg, malodor to the ulceration site, purulent drainage from the ulceration site, increased pain to the left heel, or if she experiences any nausea, vomiting, fever, chills or other constitutional symptoms that these are signs of a progressing infection and she needs to report to the ED.? She voices understanding of this. The following work up and care recommendations were made: Dressing: Epi fix graft left heel; Adaptic to blister sites with Aquacel Ag and Suprasorb, left leg 3M compression wrap; right lower extremity 3M compression wrap Wash: Do not get wet Tissue growth optimization: Epi fix Offload: Offloading surgical shoe with heel cut out Vascular: Palpable pedal pulses Edema: Elevation of lower extremities and Compression wrap left lower extremity.? 3M compression wrap bilateral legs Infection: No localized signs of infection Pain: Patient may take [id number] Tylenol extra strength for pain control Host factors: Diabetes mellitus type 2, history of osteomyelitis left heel ? I answered all the patient's questions.? To return to the wound healing center in 1 week or call sooner if the patient has any questions or concerns. ? Note: [employer] speech recognition electron beam photo mask technician software was used to create portions of this document. Sound-alike and misspelled words, as well as other electron beam photo mask technician errors may be contained in the documentation.
== END 2021-11-29 23:59 | disposition home or self-care (01) ==
LOC: WC 09:15
PROVIDERS: PCP Family Medicine; Visit Provider Student in an Organized Health Care Education/Training Program
DX: E11.621 Type 2 diabetes mellitus with foot ulcer (principal); L89.622 Pressure ulcer of left heel, stage 2; L97.322 Non-pressure chronic ulcer of left ankle with fat layer exposed; E11.42 Type 2 diabetes mellitus with diabetic polyneuropathy; E11.22 Type 2 diabetes mellitus with diabetic chronic kidney disease; E11.65 Type 2 diabetes mellitus with hyperglycemia; N18.31 Chronic kidney disease, stage 3a; M79.672 Pain in left foot; Z96.649 Presence of unspecified artificial hip joint; R60.0 Localized edema
CPT/HCPCS: 11042; 15275; 29581; Q4186

== ENCOUNTER 2021-12-28 09:15 | Outpatient (RCR) | payer MEDICARE, MEDICAID, SELFPAY ==
[2021-11-30 00:21] VITALS: BP 91/60; PULSE 67; RESP 18; TEMP 36.1
[2021-11-30 09:36] VITALS: BP 122/73; PULSE 74; RESP 18; TEMP 36.1
--- NOTE | 2021-11-30 14:10 | PN.PCM_ITS ---
History of Present Illness Date of Service: 11/30/21 Chief Complaint: left heel ulcer left ankle ulcer- healed History of Wound: In October 2019, patient had rubbing in shoes while shopping which led to a blister that developed into an ulceration. Patient was then seen by Dewey Amezquita.P.M. for wound care. Patient then became infected and was admitted to the hospital. Patient was noted to have OM on MRI. Patient wanted to avoid surgery so a mcc course of appropriate IV antibiotics was the treatment chosen. Patient was also noted to have hyperglycemia and has worked with hospitalist and PCP to try to get better control. Blood sugar levels remain elevated. Patient also had LEAS obtained in the hospital which suggested patient had the proper blood flow to allow healing. Patient has since finished rat exterminator course of antibiotics. Patient has since been seen on a weekly basis in office with progression and regression of wound noted over the weeks. Patient has tried various dressing options including wet to dry and santyl. The most progress was noted with Santyl but patient ran out and was unable to refill due to insurance issues. During which time the wound regressed. She also has an offloading surgical shoe and offloading boot to relieve pressure. Patient care is henceforth being carried out at the wound care center. Patient not currently on any antibiotics. Patient has since began skin graft aplications significant improvement is been noted to her foot overall. Patient has finished epifix graft applications with some very small remaining wound noted to left heel. Patient has new wounds noted to bilateral third digits. The right 3rd digit wound has healed. Her left ankle ulcer remains healed Patient relates that ambulation is getting easier and she is rebuilding her strength slowly. She has not had any worsening of minor remaining heel wound since beginning ambulation again. 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 Her has been helping her change the dressings daily to the left heel. She presents to the wound care center today for continued care of her left heel ulceration. Subjective Subjective This is a 61-year-old female who presents for follow-up to the wound care center for a left heel ulceration and circumferential leg wounds bilateral.? She states she is continuing keeping her feet elevated and has noticed that her swelling remains decreased.?She denies any constitutional symptoms today.?She has been changing her outer layer dressings daily to the heel.? She has been coming to the wound care center for nurse visits to perform dressing changes.?She has no further complaints today. Objective Data Objective Data Vital Signs: Vital Signs Temp Pulse Resp BP O2 Del Method 97 F L 74 18 122/73 H Room Air 11/30/21 09:36 11/30/21 09:36 11/30/21 09:36 11/30/21 09:36 11/30/21 09:36 Oxygen Delivery Method Room Air Physical Exam Const alert, oriented x3 and no apparent distress General Appearance: cooperative HEENT normocephalic Eyes General Eye: normal appearance of both eyes Neck General: normal visual inspection Lymph Lymphatic: no lymphadenopathy noted and no lymphedema noted Resp normal respiratory effort Cardio regular rate and regular rhythm Extremity normal capillary refill, no joint enlargement and no calf tenderness Peripheral Pulses: Yes posterior tibial pulses present and dorsalis pedis pulses present Skin no rashes or lesions noted, skin turgor normal and no jaundice General Skin Exam: venous stasis and dermatitis Wound Narrative: Right lower extremity: Circumferential leg wounds secondary to blister formation remain healed at this time.? Wound to the dorsal aspect of the third digit secondary to trauma is healed.? Ulceration is superficial and demonstrates no signs of infection. Left lower extremity heel decubitus ulceration.? Ulcerative site demonstrates pink wound base with scant fibrotic tissue throughout the wound bed with serosanguineous drainage and no signs of infection.? No palpable fluctuance noted to the left heel.? Ulcerative site does have hyperkeratotic tissue at the wound margins.? Ulcerative site demonstrates closure centrally with new skin formation. Left lower extremity circumferential wounds secondary to blister formation.? Site is stable no signs of infection. Neuro oriented x3 and moves all extremities Motor Exam: strength 5/5 throughout Debridement Note Debridement Note Wound debrided: Left plantar heel Laterality: Left Wound Grade/Stage: Glasgow stage II Type of Debridement: Excisional debridement Anesthesia Used: 5% Lidocaine Gel Depth: Down to and including healthy tissue and in the subcutaneous layer Percentage of wound debrided: 100 Instrument Used: 3mm curette Tissue Removed: Fibrous, devitalized subcutaneous, biofilm, slough Severity: Fat Layer Exposed Amount of bleeding with debridement: Mild Bleeding Controlled with: Compression and gauze Patient tolerated procedure: Patient tolerated procedure well Post-Debridement Measurements and Additional Note: Post-Debridement Measurements/Treatment - Nurse 1 - General Ulcer Assessment Start: 11/30/21 09:33 Freq: Status: Active Protocol: MOOK Activity Type Activity Date Activity User E-sign Co-sign Detail Recorded Client Recorded Date Recorded By Document 11/30/21 09:36 SD [id number] 11/30/21 09:43 SD 11/30/21 09:36 - Today's Visit Information Type of service Follow-up Visit (Physician/TRANSPORTATION SECURITY SCREENER ) Arrival Mode Ambulatory, Walker Patient Identification Verified (Name & Yes ) Safety Precautions Fall Prevention Finger Stick Blood Sugar(mg/dl) (if 288 indicated): Blood Sugar Stated by Patient Vital Signs Temperature (97.8 F-99.1 F) 97 F L Temperature Source Temporal Pulse Rate (60-100) 74 Pulse Location Monitor Respiratory Rate (12-18) 18 Respiratory rate source Observation Oxygen Delivery Method Room Air Blood Pressure (90/60-120/80) 122/73 H Blood Pressure Mean (mm Hg) 89 Source Monitor Position Sitting Blood Pressure Location Left Arm History Since Last Visit- (Skip if this is Patient's initial visit) Has dressing in place as prescribed Yes Has compression in place as prescribed Yes Has offloadiing in place as prescribed Yes Experienced any changes in pain level or Yes management Right Footwear Regular Shoe Pain Scale: 0-10 Numeric Is Patient Pain Free? Yes - Nurse 1 - General Ulcer Measurement Start: 11/30/21 09:33 Freq: Status: Active Protocol: Activity Type Activity Date Activity User E-sign Co-sign Detail Recorded Client Recorded Date Recorded By Document 11/30/21 09:36 SD [id number] 11/30/21 09:43 SD 11/30/21 09:36 Wound Center Nurse 1 #15 Right Second Toe -Current Size (cm) - Length 0.5 -Current Size (cm) - Width 2.0 -Current Size (cm) - Depth 0.1 -Total Square Cm 1.00 6-left heel -Current Size (cm) - Length 2 -Current Size (cm) - Width 1.3 -Current Size (cm) - Depth 0.1 -Total Square Cm 2.6 -Exudate Amt Medium -Exudate Type Serosanguineous -Wound Margin Flat & Intact -Granulation Amt Medium (34-66%) -Granulation Quality Pale,[place] -Necrosis Amt Medium (34-66%) WC - Nurse 2 - General Ulcer CM Notes Start: 11/30/21 09:33 Freq: Status: Active Protocol: Activity Type Activity Date Activity User E-sign Co-sign Detail Recorded Client Recorded Date Recorded By Document 11/30/21 12:25 PL [id number] 11/30/21 12:30 PL 11/30/21 12:25 Wound Center Nurse 2 #15 Right Second Toe -Procedure Performed No -Wound/Ulcer Outcome Healed- Epithelialized 6-left heel -Time 09:52 -Correct Patient Yes -Correct Side, Site, Position Yes -Correct Procedure Yes -Procedure Performed Yes -Type of Procedure Debridement -Clinical Debridement Subcutaneous -Tissue Removed Subcutaneous -Post Debridement (cm) - Length 1.4 -Post Debridement (cm) - Width 1.1 -Post Debridement (cm) - Depth 0.1 -Total Square (Post) (cm) 1.54 -Area of Debridement (cm) - Length 1.4 -Area of Debridement (cm) - Width 1.1 -Total Square (Area) (cm) 1.54 -Tunneling No -Undermining/Tunneling No -Circular Undermining No -Wound/Ulcer Outcome Not Healed -Ulcer Cleansing Rinsed/ Irrigated with Saline -Foul Odor after Cleansing No -Bioengineered Tissue Yes -Type of Bioengineered Tissue Epifix -Expiration Date 08/30/26 -Product Lot Number [id number] -Percent Used 100 -Bleeding Controlled with Pressure -Treatment Response Procedure Tolerated Well -Debridement - Subq, 1st 20sq cm No -Apply Skin Sub - 1st 25 sq cm - Feet 1 -Epifix (per sq cm) 4 Pain Scale: 0-10 Numeric Is Patient Pain Free? Yes WC - Nurse 3 - General Ulcer D/C NN Start: 11/30/21 09:33 Freq: Status: Active Protocol: Activity Type Activity Date Activity User E-sign Co-sign Detail Recorded Client Recorded Date Recorded By Document 11/30/21 10:14 [facility] [id number] 11/30/21 10:15 [facility] 11/30/21 10:14 Wound Care Nurse 3 6-left heel -Other Dressing EPIFIX -Other Covering HEEL HAT BLE -Multi-Layered Wrap Application Multi-Layer Comp - Bilat ($ ) Treatment Response Procedure Tolerated Well Pain Scale: 0-10 Numeric Is Patient Pain Free? Yes WC - Visit Discharge Discharge Condition Stable Ambulatory Status Ambulatory, Walker Transportation Private Auto Assessment/Plan Assessment/Plan (1) Pressure ulcer of left heel, stage 2: CODE(S): L89.622 - Pressure ulcer of left heel, stage 2 (2) Chronic kidney disease (CKD) stage G3a/A2, moderately decreased glomerular filtration rate (GFR) between 45-59 mL/min/1.73 square meter and albuminuria c reatinine ratio between 30-299 mg/g: CODE(S): N18.31 - Chronic kidney disease, stage 3a (3) Pain in left foot: CODE(S): M79.672 - Pain in left foot (4) Type II diabetes mellitus: CODE(S): E11.9 - Type 2 diabetes mellitus without complications QUALIFIERS: Diabetes mellitus complication detail: with polyneuropathy Diabetes mellitus complication status: with neurologic complications Diabetes mellitus rat exterminator insulin use: unspecified mcc insulin use status Qualified Code(s): E11.42 - Type 2 diabetes mellitus with diabetic polyneuropathy (5) Bilateral edema of lower extremity: CODE(S): R60.0 - Localized edema PLAN: Plan Patient seen and evaluated. Ulceration to the left plantar heel demonstrates a pink wound base with healthy granular tissue. Ulceration site demonstrates no signs of infection.? Wound margins healthy and atrophic.? Ulceration site was sharply debrided as stated in the clinical panel above. This was tolerated well.? Ulcerative site measures 1.4 cm x 1.1 cm x 0.1 cm I applied epi fix graft #8 to the plantar left heel.? Site anchored with Adaptic touch and Steri-Strips.? Ulcer site continues to demonstrate good healing progression with continued reduction in size. She demonstrates new wound to the dorsal aspect of the right third digit.? Wound site is superficial in nature secondary to trauma with no signs of infection.? Site underwent debridement as noted in clinical panel above.? Dry sterile dressings applied She has multiple wounds secondary to blister formations to the left and right extremity secondary to edema. These are currently healed and stable with no signs of infection. Left lower extremity dressed with 3M compression wrap.?Right leg dressed with 3M compression wrap. I discussed continued elevation of her legs aid in edema reduction and to remain compliant with her compression dressings. She continues to demonstrate progression in healing status of multiple wounds, with bilateral lower extremity edema remaining well-controlled today. She will return to the wound care center on Saturday?for a dressing change to bilateral leg. I discussed with her localized signs of infection.? She is to observe for any erythema or redness moving up the leg, malodor to the ulceration site, purulent drainage from the ulceration site, increased pain to the left heel, or if she experiences any nausea, vomiting, fever, chills or other constitutional symptoms that these are signs of a progressing infection and she needs to report to the ED.? She voices understanding of this. The following work up and care recommendations were made: Dressing: Epi fix graft left heel; Adaptic to blister sites with Aquacel Ag and Suprasorb, left leg 3M compression wrap; right lower extremity 3M compression wrap Wash: Do not get wet Tissue growth optimization: Epi fix Offload: Offloading surgical shoe with heel cut out Vascular: Palpable pedal pulses Edema: Elevation of lower extremities and Compression wrap left lower extremity.? 3M compression wrap bilateral legs Infection: No localized signs of infection Pain: Patient may take [id number] Tylenol extra strength for pain control Host factors: Diabetes mellitus type 2, history of osteomyelitis left heel ? I answered all the patient's questions.? To return to the wound healing center in 1 week or call sooner if the patient has any questions or concerns. ? Note: [employer] speech recognition diamond die polisher software was used to create portions of this document. Sound-alike and misspelled words, as well as other diamond die polisher errors may be contained in the documentation.
[2021-12-07 10:02] VITALS: BP 111/70; PULSE 69; RESP 18; TEMP 36.1
--- NOTE | 2021-12-07 10:30 | PN.PCM_ITS ---
History of Present Illness Date of Service: 12/07/21 Chief Complaint: left heel ulcer left ankle ulcer- healed History of Wound: In October 2019, patient had rubbing in shoes while shopping which led to a blister that developed into an ulceration. Patient was then seen by Dewey Amezquita.P.Usha. for wound care. Patient then became infected and was admitted to the hospital. Patient was noted to have OM on MRI. Patient wanted to avoid surgery so a extermination supervisor course of appropriate IV antibiotics was the treatment chosen. Patient was also noted to have hyperglycemia and has worked with hospitalist and PCP to try to get better control. Blood sugar levels remain elevated. Patient also had LEAS obtained in the hospital which suggested patient had the proper blood flow to allow healing. Patient has since finished extermination supervisor course of antibiotics. Patient has since been seen on a weekly basis in office with progression and regression of wound noted over the weeks. Patient has tried various dressing options including wet to dry and santyl. The most progress was noted with Santyl but patient ran out and was unable to refill due to insurance issues. During which time the wound regressed. She also has an offloading surgical shoe and offloading boot to relieve pressure. Patient care is henceforth being carried out at the wound care center. Patient not currently on any antibiotics. Patient has since began skin graft aplications significant improvement is been noted to her foot overall. Patient has finished epifix graft applications with some very small remaining wound noted to left heel. Patient has new wounds noted to bilateral third digits. The right 3rd digit wound has healed. Her left ankle ulcer remains healed Patient relates that ambulation is getting easier and she is rebuilding her strength slowly. She has not had any worsening of minor remaining heel wound since beginning ambulation again. 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 Her has been helping her change the dressings daily to the left heel. She presents to the wound care center today for continued care of her left heel ulceration. Subjective Subjective This is a 61-year-old female who presents for follow-up to the wound care center for a left heel ulceration and circumferential leg wounds bilateral.? She states she is continuing keeping her feet elevated and has noticed that her swelling remains decreased.?She denies any constitutional symptoms today.?She has been changing her outer layer dressings daily to the heel.? She has been coming to the wound care center for nurse visits to perform dressing changes.?She has no further complaints today. Objective Data Objective Data Vital Signs: Vital Signs Temp Pulse Resp BP O2 Del Method 97 F L 69 18 111/70 Room Air 12/07/21 10:02 12/07/21 10:02 12/07/21 10:02 12/07/21 10:02 12/07/21 10:02 Oxygen Delivery Method Room Air Physical Exam Const alert, oriented x3 and no apparent distress General Appearance: cooperative HEENT normocephalic Eyes General Eye: normal appearance of both eyes Neck General: normal visual inspection Lymph Lymphatic: no lymphadenopathy noted and no lymphedema noted Resp normal respiratory effort Cardio regular rate and regular rhythm Extremity normal capillary refill, no joint enlargement and no calf tenderness Skin no rashes or lesions noted, skin turgor normal and no jaundice General Skin Exam: venous stasis and dermatitis Wound Narrative: Right lower extremity: Circumferential leg wounds secondary to blister formation remain healed at this time.? Wound to the dorsal aspect of the third digit secondary to trauma is healed.? Ulceration is superficial and demonstrates no signs of infection. Left lower extremity heel decubitus ulceration.? Ulcerative site demonstrates pink wound base with scant fibrotic tissue throughout the wound bed with serosanguineous drainage and no signs of infection.? No palpable fluctuance noted to the left heel.? Ulcerative site does have hyperkeratotic tissue at the wound margins.? Ulcerative site demonstrates closure centrally with new skin formation. Left lower extremity circumferential wounds secondary to blister formation.? Site is stable no signs of infection. Neuro oriented x3 and moves all extremities Motor Exam: strength 5/5 throughout Debridement Note Debridement Note Wound debrided: Left heel decubitus ulceration Laterality: Left Wound Grade/Stage: Glasgow stage II Type of Debridement: Excisional debridement Anesthesia Used: 5% Lidocaine Gel Depth: Down to and including healthy tissue and in the subcutaneous layer Percentage of wound debrided: 100 Instrument Used: 3mm curette Tissue Removed: Fibrous, devitalized subcutaneous, biofilm, slough Severity: Fat Layer Exposed Amount of bleeding with debridement: Mild Bleeding Controlled with: Compression and gauze Patient tolerated procedure: Patient tolerated procedure well Post-Debridement Measurements and Additional Note: Post-Debridement Measurements/Treatment WC - Nurse 1 - General Ulcer Assessment Start: 11/30/21 09:33 Freq: Status: Active Protocol: MOOK Activity Type Activity Date Activity User E-sign Co-sign Detail Recorded Client Recorded Date Recorded By Document 11/30/21 09:36 KS [id number] 11/30/21 09:43 KS Document 12/07/21 10:02 KS [id number] 12/07/21 10:06 KS 11/30/21 12/07/21 09:36 10:02 - Today's Visit Information Type of service Follow-up Visit Follow-up Visit (Physician/PYROTECHNIC ASSEMBLER (Physician/PYROTECHNIC ASSEMBLER ) ) Arrival Mode Ambulatory, Ambulatory, Walker Walker Accompanied by self Patient Identification Verified (Name & Yes Yes ) Safety Precautions Fall Prevention Fall Prevention Finger Stick Blood Sugar(mg/dl) (if 288 171 indicated): Blood Sugar Stated by Stated by Patient Patient Vital Signs Temperature (97.8 F-99.1 F) 97 F L 97 F L Temperature Source Temporal Temporal Pulse Rate (60-100) 74 69 Pulse Location Monitor Monitor Respiratory Rate (12-18) 18 18 Respiratory rate source Observation Observation Oxygen Delivery Method Room Air Room Air Blood Pressure (90/60-120/80) 122/73 H 111/70 Blood Pressure Mean (mm Hg) 89 83 Source Monitor Monitor Position Sitting Sitting Blood Pressure Location Left Arm Right Arm History Since Last Visit- (Skip if this is Patient's initial visit) Has dressing in place as prescribed Yes Yes Has compression in place as prescribed Yes Yes Has offloadiing in place as prescribed Yes Yes Experienced any changes in pain level or Yes Yes management Left Footwear Slipper Right Footwear Regular Shoe Slipper Pain Scale: 0-10 Numeric Is Patient Pain Free? Yes Yes - Nurse 1 - General Ulcer Measurement Start: 11/30/21 09:33 Freq: Status: Active Protocol: Activity Type Activity Date Activity User E-sign Co-sign Detail Recorded Client Recorded Date Recorded By Document 11/30/21 09:36 KS [id number] 11/30/21 09:43 KS Document 12/07/21 10:02 KS [id number] 12/07/21 10:06 MT 11/30/21 12/07/21 09:36 10:02 Wound Center Nurse 1 #15 Right Second Toe -Current Size (cm) - Length 0.5 -Current Size (cm) - Width 2.0 -Current Size (cm) - Depth 0.1 -Total Square Cm 1.00 6-left heel -Current Size (cm) - Length 2 1.2 -Current Size (cm) - Width 1.3 1.2 -Current Size (cm) - Depth 0.1 0.1 -Total Square Cm 2.6 1.44 -Exudate Amt Medium Medium -Exudate Type Serosanguineous Serous -Wound Margin Flat & Intact Thickened & Rolled Under -Granulation Amt Medium (34-66%) Medium (34-66%) -Granulation Quality Pale,[place] Pale,[place] -Necrosis Amt Medium (34-66%) Small (1-33%) -Necrotic Tissue Type Adherent Slough -Texture (Bren-wound Skin Appearance) Assessed -Moisture (Bren-wound Skin Appearance) Assessed -Color (Bren-wound Skin Appearance) Assessed, Hemosiderin Staining -Temperature (Bren-wound Skin No Abnormality Appearance) (Pt Warm) -Tenderness on Palpation (Bren-wound No Skin Appearance) -Ulcer Cleansing Soap and Water -Foul Odor after Cleansing No -Anesthetic Used 4% Lidocaine Solution Right Calf (cm) 34.5 Right Ankle (cm) 22.5 Left Calf (cm) 33 Left Ankle (cm) 23 WC - Nurse 2 - General Ulcer CM Notes Start: 11/30/21 09:33 Freq: Status: Active Protocol: Activity Type Activity Date Activity User E-sign Co-sign Detail Recorded Client Recorded Date Recorded By Document 11/30/21 12:25 MICHEL [id number] 11/30/21 12:30 PL 11/30/21 12:25 Wound Center Nurse 2 #15 Right Second Toe -Procedure Performed No -Wound/Ulcer Outcome Healed- Epithelialized 6-left heel -Time 09:52 -Correct Patient Yes -Correct Side, Site, Position Yes -Correct Procedure Yes -Procedure Performed Yes -Type of Procedure Debridement -Clinical Debridement Subcutaneous -Tissue Removed Subcutaneous -Post Debridement (cm) - Length 1.4 -Post Debridement (cm) - Width 1.1 -Post Debridement (cm) - Depth 0.1 -Total Square (Post) (cm) 1.54 -Area of Debridement (cm) - Length 1.4 -Area of Debridement (cm) - Width 1.1 -Total Square (Area) (cm) 1.54 -Tunneling No -Undermining/Tunneling No -Circular Undermining No -Wound/Ulcer Outcome Not Healed -Ulcer Cleansing Rinsed/ Irrigated with Saline -Foul Odor after Cleansing No -Bioengineered Tissue Yes -Type of Bioengineered Tissue Epifix -Expiration Date 08/30/26 -Product Lot Number [id number] -Percent Used 100 -Bleeding Controlled with Pressure -Treatment Response Procedure Tolerated Well -Debridement - Subq, 1st 20sq cm No -Apply Skin Sub - 1st 25 sq cm - Feet 1 -Epifix (per sq cm) 4 Pain Scale: 0-10 Numeric Is Patient Pain Free? Yes - Nurse 3 - General Ulcer D/C NN Start: 11/30/21 09:33 Freq: Status: Active Protocol: Activity Type Activity Date Activity User E-sign Co-sign Detail Recorded Client Recorded Date Recorded By Document 11/30/21 10:14 [facility] [id number] 11/30/21 10:15 [facility] 11/30/21 10:14 Wound Care Nurse 3 6-left heel -Other Dressing EPIFIX -Other Covering HEEL HAT BLE -Multi-Layered Wrap Application Multi-Layer Comp - Bilat ($ ) Treatment Response Procedure Tolerated Well Pain Scale: 0-10 Numeric Is Patient Pain Free? Yes - Visit Discharge Discharge Condition Stable Ambulatory Status Ambulatory, Walker Transportation Private Auto Assessment/Plan Assessment/Plan (1) Pressure ulcer of left heel, stage 2: CODE(S): L89.622 - Pressure ulcer of left heel, stage 2 (2) Chronic kidney disease (CKD) stage G3a/A2, moderately decreased glomerular filtration rate (GFR) between 45-59 mL/min/1.73 square meter and albuminuria creatinine ratio between 30-299 mg/g: CODE(S): N18.31 - Chronic kidney disease, stage 3a (3) Pain in left foot: CODE(S): M79.672 - Pain in left foot (4) Type II diabetes mellitus: CODE(S): E11.9 - Type 2 diabetes mellitus without complications QUALIFIERS: Diabetes mellitus jail insulin use: unspecified extermination supervisor insulin use status Diabetes mellitus complication status: with neurologic complications Diabetes mellitus complication detail: with polyneuropathy Qualified Code(s): E11.42 - Type 2 diabetes mellitus with diabetic polyneuropathy (5) Bilateral edema of lower extremity: CODE(S): R60.0 - Localized edema PLAN: Plan Patient seen and evaluated. Ulceration to the left plantar heel demonstrates a pink wound base with healthy granular tissue. Ulceration site demonstrates no signs of infection.? Wound margins healthy and atrophic.? Ulceration site was sharply debrided as stated in the clinical panel above. This was tolerated well.? Ulcerative site measures 1.3 cm x 1.0 cm x 0.1 cm I applied epi fix graft #9 to the plantar left heel.? Site anchored with Adaptic touch and Steri-Strips.? Ulcer site continues to demonstra te good healing progression with continued reduction in size. Wound to the dorsal aspect of the right third digit has healed with no signs of infection. She has multiple wounds secondary to blister formations to the left and right extremity secondary to edema. These are currently healed and stable with no signs of infection. Left lower extremity dressed with 3M compression wrap.?Right leg dressed with 3M compression wrap. I discussed continued elevation of her legs aid in edema reduction and to remain compliant with her compression dressings. She continues to demonstrate progression in healing status of multiple wounds, with bilateral lower extremity edema remaining well-controlled today. She will return to the wound care center on Saturday?for a dressing change to bilateral leg. I discussed with her localized signs of infection.? She is to observe for any erythema or redness moving up the leg, malodor to the ulceration site, purulent drainage from the ulceration site, increased pain to the left heel, or if she experiences any nausea, vomiting, fever, chills or other constitutional symptoms that these are signs of a progressing infection and she needs to report to the ED.? She voices understanding of this. The following work up and care recommendations were made: Dressing: Epi fix graft left heel; Adaptic to blister sites with Aquacel Ag and Suprasorb, left leg 3M compression wrap; right lower extremity 3M compression wrap Wash: Do not get wet Tissue growth optimization: Epi fix Offload: Offloading surgical shoe with heel cut out Vascular: Palpable pedal pulses Edema: Elevation of lower extremities and Compression wrap left lower extremity.? 3M compression wrap bilateral legs Infection: No localized signs of infection Pain: Patient may take [id number] Tylenol extra strength for pain control Host factors: Diabetes mellitus type 2, history of osteomyelitis left heel ? I answered all the patient's questions.? To return to the wound healing center in 1 week or call sooner if the patient has any questions or concerns. ? Note: [employer] speech recognition injection operator software was used to create portions of this document. Sound-alike and misspelled words, as well as other injection operator errors may be contained in the documentation.
[2021-12-14 09:49] VITALS: BP 115/61; PULSE 73; TEMP 36.1
--- NOTE | 2021-12-14 09:50 | PN.PCM_ITS ---
History of Present Illness Date of Service: 12/14/21 Chief Complaint: left heel ulcer left ankle ulcer- healed History of Wound: In October 2019, patient had rubbing in shoes while shopping which led to a blister that developed into an ulceration. Patient was then seen by Dewey Amezquita.P.Usha. for wound care. Patient then became infected and was admitted to the hospital. Patient was noted to have OM on MRI. Patient wanted to avoid surgery so a termite control representative course of appropriate IV antibiotics was the treatment chosen. Patient was also noted to have hyperglycemia and has worked with hospitalist and PCP to try to get better control. Blood sugar levels remain elevated. Patient also had LEAS obtained in the hospital which suggested patient had the proper blood flow to allow healing. Patient has since finished termite control representative course of antibiotics. Patient has since been seen on a weekly basis in office with progression and regression of wound noted over the weeks. Patient has tried various dressing options including wet to dry and santyl. The most progress was noted with Santyl but patient ran out and was unable to refill due to insurance issues. During which time the wound regressed. She also has an offloading surgical shoe and offloading boot to relieve pressure. Patient care is henceforth being carried out at the wound care center. Patient not currently on any antibiotics. Patient has since began skin graft aplications significant improvement is been noted to her foot overall. Patient has finished epifix graft applications with some very small remaining wound noted to left heel. Patient has new wounds noted to bilateral third digits. The right 3rd digit wound has healed. Her left ankle ulcer remains healed Patient relates that ambulation is getting easier and she is rebuilding her strength slowly. She has not had any worsening of minor remaining heel wound since beginning ambulation again. 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 Her has been helping her change the dressings daily to the left heel. She presents to the wound care center today for continued care of her left heel ulceration. Subjective Subjective This is a 61-year-old female who presents for follow-up to the wound care center for a left heel ulceration and circumferential leg wounds bilateral.? She states she is continuing keeping her feet elevated and has noticed that her swelling remains decreased.?She denies any constitutional symptoms today. However she states that she feels a little weak and had some trouble walking into clinic today. ?She has been changing her outer layer dressings daily to the heel.? She has been coming to the wound care center for nurse visits to perform dressing changes.?She has no further complaints today. Objective Data Objective Data Vital Signs: Vital Signs Temp Pulse Resp BP O2 Del Method 97.0 F L 73 18 115/61 Room Air 12/14/21 09:49 12/14/21 09:49 12/07/21 10:02 12/14/21 09:49 12/07/21 10:02 Oxygen Delivery Method Room Air Physical Exam Const alert, oriented x3 and no apparent distress General Appearance: cooperative HEENT normocephalic Eyes General Eye: normal appearance of both eyes Neck General: normal visual inspection Lymph Lymphatic: no lymphadenopathy noted and no lymphedema noted Resp normal respiratory effort Cardio regular rate and regular rhythm Extremity normal capillary refill, no joint enlargement and no calf tenderness Skin no rashes or lesions noted, skin turgor normal and no jaundice General Skin Exam: venous stasis and dermatitis Wound Narrative: Right lower extremity: Circumferential leg wounds secondary to blister formation remain healed at this time.? Wound to the dorsal aspect of the third digit secondary to trauma is healed.? Ulceration is superficial and demonstrates no signs of infection. Left lower extremity heel decubitus ulceration.? Ulcerative site demonstrates pink wound base with scant fibrotic tissue throughout the wound bed with serosanguineous drainage and no signs of infection.? No palpable fluctuance noted to the left heel.? Ulcerative site does have hyperkeratotic tissue at the wound margins.? Ulcerative site demonstrates closure centrally with new skin formation. Left lower extremity circumferential wounds secondary to blister formation.? Site is stable no signs of infection. Neuro oriented x3 and moves all extremities Motor Exam: strength 5/5 throughout Debridement Note Debridement Note Wound debrided: Left heel decubitus ulceration Laterality: Left Wound Grade/Stage: Glasgow stage II Type of Debridement: Excisional debridement Anesthesia Used: 5% Lidocaine Gel Depth: Down to and including healthy tissue and in the subcutaneous layer Percentage of wound debrided: 100 Instrument Used: 3mm curette Tissue Removed: Fibrous, devitalized subcutaneous, biofilm, slough Severity: Fat Layer Exposed Amount of bleeding with debridement: Mild Bleeding Controlled with: Compression and gauze Patient tolerated procedure: Patient tolerated procedure well Post-Debridement Measurements and Additional Note: Post-Debridement Measurements/Treatment - Nurse 1 - General Ulcer Assessment Start: 11/30/21 09:33 Freq: Status: Active Protocol: MOOK Activity Type Activity Date Activity User E-sign Co-sign Detail Recorded Client Recorded Date Recorded By Document 11/30/21 09:36 AK [id number] 11/30/21 09:43 AK Document 12/07/21 10:02 AK [id number] 12/07/21 10:06 AK Document 12/14/21 09:49 KR [id number] 12/14/21 09:50 KR 11/30/21 12/07/21 12/14/21 09:36 10:02 09:49 - Today's Visit Information Type of service Follow-up Visit Follow-up Visit Follow-up Visit (Physician/BILINGUAL OFFICE ASSISTANT (Physician/BILINGUAL OFFICE ASSISTANT (Physician/BILINGUAL OFFICE ASSISTANT ) ) ) Arrival Mode Ambulatory, Ambulatory, Ambulatory, Walker Walker Walker Accompanied by self Patient Identification Verified (Name & Yes Yes Yes ) Safety Precautions Fall Prevention Fall Prevention Finger Stick Blood Sugar(mg/dl) (if 288 171 indicated): Blood Sugar Stated by Stated by Patient Patient Vital Signs Temperature (97.8 F-99.1 F) 97 F L 97 F L 97.0 F L Temperature Source Temporal Temporal Temporal Pulse Rate (60-100) 74 69 73 Pulse Location Monitor Monitor Monitor Respiratory Rate (12-18) 18 18 Respiratory rate source Observation Observation Oxygen Delivery Method Room Air Room Air Blood Pressure (90/60-120/80) 122/73 H 111/70 115/61 Blood Pressure Mean (mm Hg) 89 83 79 Source Monitor Monitor Monitor Position Sitting Sitting Sitting Blood Pressure Location Left Arm Right Arm Left Arm History Since Last Visit- (Skip if this is Patient's initial visit) Have you changed medications since your No last visit? Any new allergies or adverse reactions No Had a fall/change in ADL's that may No increase risk of falls Signs or symptoms of abuse and/or No neglect since last visit Have you been in the hospital since your No last visit? Has dressing in place as prescribed Yes Yes Yes Has compression in place as prescribed Yes Yes Yes Has offloadiing in place as prescribed Yes Yes N/A Experienced any changes in pain level or Yes Yes No management Left Footwear Slipper No Footwear Right Footwear Regular Shoe Slipper No Footwear Pain Scale: 0-10 Numeric Is Patient Pain Free? Yes Yes Yes WC - Nurse 1 - General Ulcer Measurement Start: 11/30/21 09:33 Freq: Status: Active Protocol: Activity Type Activity Date Activity User E-sign Co-sign Detail Recorded Client Recorded Date Recorded By Document 11/30/21 09:36 AK [id number] 11/30/21 09:43 AK Document 12/07/21 10:02 AK [id number] 12/07/21 10:06 AK Document 12/14/21 09:49 KR [id number] 12/14/21 09:50 KR 11/30/21 12/07/21 12/14/21 09:36 10:02 09:49 Wound Center Nurse 1 #15 Right Second Toe -Current Size (cm) - Length 0.5 -Current Size (cm) - Width 2.0 -Current Size (cm) - Depth 0.1 -Total Square Cm 1.00 6-left heel -Current Size (cm) - Length 2 1.2 1 -Current Size (cm) - Width 1.3 1.2 2.1 -Current Size (cm) - Depth 0.1 0.1 0.2 -Total Square Cm 2.6 1.44 2.1 -Exudate Amt Medium Medium Small -Exudate Type Serosanguineous Serous Serosanguineous -Wound Margin Flat & Intact Thickened & Distinct, Rolled Under Outline Attached -Granulation Amt Medium (34-66%) Medium (34-66%) Small (1-33%) -Granulation Quality Pale,Mertzon Pale,Mertzon Mertzon -Necrosis Amt Medium (34-66%) Small (1-33%) None Present (0 %) -Necrotic Tissue Type Adherent Slough -Texture (Bren-wound Skin Appearance) Assessed Assessed,Callus -Moisture (Bren-wound Skin Appearance) Assessed No Abnormality, Assessed -Color (Bren-wound Skin Appearance) Assessed, No Abnormality, Hemosiderin Assessed Staining -Temperature (Bren-wound Skin No Abnormality No Abnormality Appearance) (Pt Warm) (Pt Warm) -Tenderness on Palpation (Bren-wound No No Skin Appearance) -Ulcer Cleansing Soap and Water Rinsed/ Irrigated with Saline -Foul Odor after Cleansing No No -Anesthetic Used 4% Lidocaine 5% Lidocaine Solution Gel Right Calf (cm) 34.5 36.1 Right Ankle (cm) 22.5 25 Left Calf (cm) 33 39 Left Ankle (cm) 23 24.5 - Nurse 2 - General Ulcer CM Notes Start: 11/30/21 09:33 Freq: Status: Active Protocol: Activity Type Activity Date Activity User E-sign Co-sign Detail Recorded Client Recorded Date Recorded By Document 11/30/21 12:25 PL [id number] 11/30/21 12:30 PL Document 12/07/21 12:17 PL [id number] 12/07/21 12:19 PL 11/30/21 12/07/21 12:25 12:17 Wound Center Nurse 2 #15 Right Second Toe -Procedure Performed No -Wound/Ulcer Outcome Healed- Epithelialized 6-left heel -Time 09:52 10:22 -Correct Patient Yes Yes -Correct Side, Site, Position Yes Yes -Correct Procedure Yes Yes -Procedure Performed Yes Yes -Type of Procedure Debridement Debridement -Clinical Debridement Subcutaneous Subcutaneous -Tissue Removed Subcutaneous Subcutaneous -Post Debridement (cm) - Length 1.4 1.2 -Post Debridement (cm) - Width 1.1 1.2 -Post Debridement (cm) - Depth 0.1 0.1 -Total Square (Post) (cm) 1.54 1.44 -Area of Debridement (cm) - Length 1.4 1.2 -Area of Debridement (cm) - Width 1.1 1.2 -Total Square (Area) (cm) 1.54 1.44 -Tunneling No No -Undermining/Tunneling No No -Circular Undermining No No -Wound/Ulcer Outcome Not Healed Not Healed -Ulcer Cleansing Rinsed/ Rinsed/ Irrigated with Irrigated with Saline Saline -Foul Odor after Cleansing No No -Bioengineered Tissue Yes Yes -Type of Bioengineered Tissue Epifix Epifix -Expiration Date 08/30/26 08/30/26 -Product Lot Number [id number] -Percent Used 100 100 -Bleeding Controlled with Pressure Pressure -Treatment Response Procedure Procedure Tolerated Well Tolerated Well -Debridement - Subq, 1st 20sq cm No No -Apply Skin Sub - 1st 25 sq cm - Feet 1 1 -Epifix (per sq cm) 4 4 Pain Scale: 0-10 Numeric Is Patient Pain Free? Yes Yes WC - Nurse 3 - General Ulcer D/C NN Start: 11/30/21 09:33 Freq: Status: Active Protocol: Activity Type Activity Date Activity User E-sign Co-sign Detail Recorded Client Recorded Date Recorded By Document 11/30/21 10:14 [facility] [id number] 11/30/21 10:15 [facility] Document 12/07/21 10:49 MI [id number] 12/07/21 10:50 MI 11/30/21 12/07/21 10:14 10:49 Wound Care Nurse 3 6-left heel -Ulcer Cleansing Rinsed/ Irrigated with Saline -Foul Odor after Cleansing No -Negative Pressure Wound Therapy N/A -Other Dressing EPIFIX ABD -Other Covering HEEL HAT BLE -Lotion applied to leg before No compression wrap -Multi-Layered Wrap Application Multi-Layer Multi-Layer Comp - Bilat ($ Comp - Bilat ($ ) ) -Stockings No Treatment Response Procedure Tolerated Well Pain Scale: 0-10 Numeric Is Patient Pain Free? Yes Yes - Visit Discharge Discharge Condition Stable Stable Ambulatory Status Ambulatory, Ambulatory, Walker Walker Transportation Private Auto Medication Reconcilliation completed & Yes provided to patient/care provider Clinical Summary of Care Provided Yes Assessment/Plan Assessment/Plan (1) Pressure ulcer of left heel, stage 2: CODE(S): L89.622 - Pressure ulcer of left heel, stage 2 (2) Chronic kidney disease (CKD) stage G3a/A2, moderately decreased glomerular filtration rate (GFR) between 45-59 mL/min/1.73 square meter and albuminuria creatinine ratio between 30-299 mg/g: CODE(S): N18.31 - Chronic kidney disease, stage 3a (3) Pain in left foot: CODE(S): M79.672 - Pain in left foot (4) Type II diabetes mellitus: CODE(S): E11.9 - Type 2 diabetes mellitus without complications QUALIFIERS: Diabetes mellitus complication detail: with polyneuropathy Diabetes mellitus complication status: with neurologic complications Diabetes mellitus [facility] insulin use: unspecified [facility] insulin use status Qualified Code(s): E11.42 - Type 2 diabetes mellitus with diabetic polyneuropathy (5) Bilateral edema of lower extremity: CODE(S): R60.0 - Localized edema PLAN: Plan Patient seen and evaluated. Ulceration to the left plantar heel demonstrates a pink wound base with healthy granular tissue. Ulceration site demonstrates no signs of infection.? Wound margins healthy and atrophic.? Ulceration site was sharply debrided as stated in the clinical panel above. This was tolerated well.? Ulcerative site measures 1.3 cm x 1.0 cm x 0.1 cm I applied epi fix graft #10 to the plantar left heel.? Site anchored with Adaptic touch and Steri-Strips.? Ulcer site continues to demonstrate good healing progression with continued reduction in size. I discussed with her today her general weakness and ill appearing state. Patient is a type II diabetic and blood sugar was checked today upon presentation to clinic and was measured at 402mg/dL. She states she is on insulin 14 units in the morning. I discussed with her that I recommend going ov er to the ED for evaluation and to obtain control of her blood sugar as she is nearing DKA status. Patient voices understanding of our discussion and my recommendation. She has multiple wounds secondary to blister formations to the left and right extremity secondary to edema. These are currently healed and stable with no signs of infection. Left lower extremity dressed with 3M compression wrap.?Right leg dressed with 3M compression wrap. I discussed continued elevation of her legs aid in edema reduction and to remain compliant with her compression dressings. She continues to demonstrate progression in healing status of multiple wounds, with bilateral lower extremity edema remaining well-controlled today. She will return to the wound care center on Saturday?for a dressing change to bilateral leg. I discussed with her localized signs of infection.? She is to observe for any erythema or redness moving up the leg, malodor to the ulceration site, purulent drainage from the ulceration site, increased pain to the left heel, or if she experiences any nausea, vomiting, fever, chills or other constitutional symptoms that these are signs of a progressing infection and she needs to report to the ED.? She voices understanding of this. The following work up and care recommendations were made: Dressing: Epi fix graft left heel; Adaptic to blister sites with Aquacel Ag and Suprasorb, left leg 3M compression wrap; right lower extremity 3M compression wrap Wash: Do not get wet Tissue growth optimization: Epi fix Offload: Offloading surgical shoe with heel cut out Vascular: Palpable pedal pulses Edema: Elevation of lower extremities and Compression wrap left lower extremity.? 3M compression wrap bilateral legs Infection: No localized signs of infection Pain: Patient may take rold-pol-[place]ix[place] Tylenol extra strength for pain control Host factors: Diabetes mellitus type 2, history of osteomyelitis left heel ? I answered all the patient's questions.? To return to the wound healing center in 1 week or call sooner if the patient has any questions or concerns. ? Note: Epic[employer] speech recognition valve inserter software was used to create portions of this document. Sound-alike and misspelled words, as well as other valve inserter errors may be contained in the documentation.
[2021-12-14 10:20] LABS: Bedside Glucose 402 mg/dL (74-106)
[2021-12-19 11:11] VITALS: BP 202/90; PULSE 87; TEMP 36.1
[2021-12-21 09:17] VITALS: BP 159/86; PULSE 74; TEMP 36.1
--- NOTE | 2021-12-21 09:21 | PN.PCM_ITS ---
History of Present Illness Date of Service: 12/21/21 Chief Complaint: left heel ulcer left ankle ulcer- healed History of Wound: In October 2019, patient had rubbing in shoes while shopping which led to a blister that developed into an ulceration. Patient was then seen by Dewey Amezquita.P.M. for wound care. Patient then became infected and was admitted to the hospital. Patient was noted to have OM on MRI. Patient wanted to avoid surgery so a terminal block assembler course of appropriate IV antibiotics was the treatment chosen. Patient was also noted to have hyperglycemia and has worked with hospitalist and PCP to try to get better control. Blood sugar levels remain elevated. Patient also had LEAS obtained in the hospital which suggested patient had the proper blood flow to allow healing. Patient has since finished terminal block assembler course of antibiotics. Patient has since been seen on a weekly basis in office with progression and regression of wound noted over the weeks. Patient has tried various dressing options including wet to dry and santyl. The most progress was noted with Santyl but patient ran out and was unable to refill due to insurance issues. During which time the wound regressed. She also has an offloading surgical shoe and offloading boot to relieve pressure. Patient care is henceforth being carried out at the wound care center. Patient not currently on any antibiotics. Patient has since began skin graft aplications significant improvement is been noted to her foot overall. Patient has finished epifix graft applications with some very small remaining wound noted to left heel. Patient has new wounds noted to bilateral third digits. The right 3rd digit wound has healed. Her left ankle ulcer remains healed Patient relates that ambulation is getting easier and she is rebuilding her strength slowly. She has not had any worsening of minor remaining heel wound since beginning ambulation again. 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 Her has been helping her change the dressings daily to the left heel. She presents to the wound care center today for continued care of her left heel ulceration. Subjective Subjective This is a 61-year-old female who presents for follow-up to the wound care center for a left heel ulceration and circumferential leg wounds bilateral.? She states she is continuing keeping her feet elevated and has noticed that her swelling remains decreased.?She denies any constitutional symptoms today.? However she states that she feels a little weak and had some trouble walking into clinic today. ?She has been changing her outer layer dressings daily to the heel.? She has been coming to the wound care center for nurse visits to perform dressing changes.?She has no further complaints today. Objective Data Objective Data Vital Signs: Vital Signs Temp Pulse Resp BP O2 Del Method 97.0 F L 87 18 202/90 H Room Air 12/19/21 11:11 12/19/21 11:11 12/07/21 10:02 12/19/21 11:11 12/07/21 10:02 Oxygen Delivery Method Room Air Physical Exam Const alert, oriented x3 and no apparent distress General Appearance: cooperative HEENT normocephalic Eyes General Eye: normal appearance of both eyes Neck General: normal visual inspection Lymph Lymphatic: no lymphadenopathy noted and no lymphedema noted Resp normal respiratory effort Cardio regular rate and regular rhythm Extremity normal capillary refill, no joint enlargement and no calf tenderness Skin no rashes or lesions noted, skin turgor normal and no jaundice General Skin Exam: venous stasis and dermatitis Wound Narrative: Right lower extremity: Circumferential leg wounds secondary to blister formation remain healed at this time.? Wound to the dorsal aspect of the third digit secondary to trauma is healed.? Ulceration is superficial and demonstrates no signs of infection. Left lower extremity heel decubitus ulceration.? Ulcerative site demonstrates pink wound base with scant fibrotic tissue throughout the wound bed with serosanguineous drainage and no signs of infection.? No palpable fluctuance noted to the left heel.? Ulcerative site does have hyperkeratotic tissue at the wound margins.? Ulcerative site demonstrates closure centrally with new skin formation. Left lower extremity circumferential wounds secondary to blister formation.? Site is stable no signs of infection. Neuro oriented x3 and moves all extremities Motor Exam: strength 5/5 throughout Debridement Note Debridement Note Wound debrided: Left plantar heel Laterality: Left Wound Grade/Stage: Glasgow stage II Type of Debridement: Excisional debridement Anesthesia Used: 5% Lidocaine Gel Depth: Down to and including healthy tissue and in the subcutaneous layer Percentage of wound debrided: 100 Instrument Used: 3mm curette Tissue Removed: Fibrous, devitalized subcutaneous, biofilm, slough Severity: Fat Layer Exposed Amount of bleeding with debridement: Mild Bleeding Controlled with: Compression and gauze Patient tolerated procedure: Patient tolerated procedure well Post-Debridement Measurements and Additional Note: Post-Debridement Measurements/Treatment - Nurse 1 - General Ulcer Assessment Start: 11/30/21 09:33 Freq: Status: Active Protocol: MOOK Activity Type Activity Date Activity User E-sign Co-sign Detail Recorded Client Recorded Date Recorded By Document 11/30/21 09:36 ME [id number] 11/30/21 09:43 MT Document 12/07/21 10:02 ME [id number] 12/07/21 10:06 MT Document 12/14/21 09:49 KR [id number] 12/14/21 09:50 KR Document 12/19/21 11:11 KR [id number] 12/19/21 11:12 KR 11/30/21 12/07/21 12/14/21 09:36 10:02 09:49 - Today's Visit Information Type of service Follow-up Visit Follow-up Visit Follow-up Visit (Physician/TEACHING ASSOCIATE (Physician/TEACHING ASSOCIATE (Physician/TEACHING ASSOCIATE ) ) ) Arrival Mode Ambulatory, Ambulatory, Ambulatory, Walker Walker Walker Accompanied by self Patient Identification Verified (Name & Yes Yes Yes ) Safety Precautions Fall Prevention Fall Prevention Finger Stick Blood Sugar(mg/dl) (if 288 171 indicated): Blood Sugar Stated by Stated by Patient Patient Vital Signs Temperature (97.8 F-99.1 F) 97 F L 97 F L 97.0 F L Temperature Source Temporal Temporal Temporal Pulse Rate (60-100) 74 69 73 Pulse Location Monitor Monitor Monitor Respiratory Rate (12-18) 18 18 Respiratory rate source Observation Observation Oxygen Delivery Method Room Air Room Air Blood Pressure (90/60-120/80) 122/73 H 111/70 115/61 Blood Pressure Mean (mm Hg) 89 83 79 Source Monitor Monitor Monitor Position Sitting Sitting Sitting Blood Pressure Location Left Arm Right Arm Left Arm History Since Last Visit- (Skip if this is Patient's initial visit) Have you changed medications since your No last visit? Any new allergies or adverse reactions No Had a fall/change in ADL's that may No increase risk of falls Signs or symptoms of abuse and/or No neglect since last visit Have you been in the hospital since your No last visit? Has dressing in place as prescribed Yes Yes Yes Has compression in place as prescribed Yes Yes Yes Has offloadiing in place as prescribed Yes Yes N/A Experienced any changes in pain level or Yes Yes No management Left Footwear Slipper No Footwear Right Footwear Regular Shoe Slipper No Footwear Pain Scale: 0-10 Numeric Is Patient Pain Free? Yes Yes Yes 12/19/21 11:11 - Today's Visit Information Type of service Nurse-only Visit Arrival Mode Ambulatory, Walker Accompanied by Patient Identification Verified (Name & Yes ) Safety Precautions Finger Stick Blood Sugar(mg/dl) (if indicated): Blood Sugar Vital Signs Temperature (97.8 F-99.1 F) 97.0 F L Temperature Source Temporal Pulse Rate (60-100) 87 Pulse Location Monitor Respiratory Rate (12-18) Respiratory rate source Oxygen Delivery Method Blood Pressure (90/60-120/80) 202/90 H Blood Pressure Mean (mm Hg) 127 Source Monitor Position Semi-Fowlers Blood Pressure Location Left Arm History Since Last Visit- (Skip if this is Patient's initial visit) Have you changed medications since your No last visit? Any new allergies or adverse reactions No Had a fall/change in ADL's that may No increase risk of falls Signs or symptoms of abuse and/or No neglect since last visit Have you been in the hospital since your No last visit? Has dressing in place as prescribed Yes Has compression in place as prescribed Yes Has offloadiing in place as prescribed N/A Experienced any changes in pain level or No management Left Footwear No Footwear Right Footwear No Footwear Pain Scale: 0-10 Numeric Is Patient Pain Free? Yes - Nurse 1 - General Ulcer Measurement Start: 11/30/21 09:33 Freq: Status: Active Protocol: Activity Type Activity Date Activity User E-sign Co-sign Detail Recorded Client Recorded Date Recorded By Document 11/30/21 09:36 ME [id number] 11/30/21 09:43 MT Document 12/07/21 10:02 ME [id number] 12/07/21 10:06 MT Document 12/14/21 09:49 KR [id number] 12/14/21 09:50 KR 11/30/21 12/07/21 12/14/21 09:36 10:02 09:49 Wound Center Nurse 1 #15 Right Second Toe -Current Size (cm) - Length 0.5 -Current Size (cm) - Width 2.0 -Current Size (cm) - Depth 0.1 -Total Square Cm 1.00 6-left heel -Current Size (cm) - Length 2 1.2 1 -Current Size (cm) - Width 1.3 1.2 2.1 -Current Size (cm) - Depth 0.1 0.1 0.2 -Total Square Cm 2.6 1.44 2.1 -Exudate Amt Medium Medium Small -Exudate Type Serosanguineous Serous Serosanguineous -Wound Margin Flat & Intact Thickened & Distinct, Rolled Under Outline Attached -Granulation Amt Medium (34-66%) Medium (34-66%) Small (1-33%) -Granulation Quality Pale,[place] Pale,[place] -Necrosis Amt Medium (34-66%) Small (1-33%) None Present (0 %) -Necrotic Tissue Type Adherent Slough -Texture (Bren-wound Skin Appearance) Assessed Assessed,Callus -Moisture (Bren-wound Skin Appearance) Assessed No Abnormality, Assessed -Color (Bren-wound Skin Appearance) Assessed, No Abnormality, Hemosiderin Assessed Staining -Temperature (Bren-wound Skin No Abnormality No Abnormality Appearance) (Pt Warm) (Pt Warm) -Tenderness on Palpation (Bren-wound No No Skin Appearance) -Ulcer Cleansing Soap and Water Rinsed/ Irrigated with Saline -Foul Odor after Cleansing No No -Anesthetic Used 4% Lidocaine 5% Lidocaine Solution Gel Right Calf (cm) 34.5 36.1 Right Ankle (cm) 22.5 25 Left Calf (cm) 33 39 Left Ankle (cm) 23 24.5 WC - Nurse 2 - General Ulcer CM Notes Start: 11/30/21 09:33 Freq: Status: Active Protocol: Activity Type Activity Date Activity User E-sign Co-sign Detail Recorded Client Recorded Date Recorded By Document 11/30/21 12:25 PL [id number] 11/30/21 12:30 PL Document 12/07/21 12:17 PL [id number] 12/07/21 12:19 PL Document 12/14/21 10:22 PL [id number] 12/14/21 10:24 PL 11/30/21 12/07/21 12/14/21 12:25 12:17 10:22 Wound Center Nurse 2 #15 Right Second Toe -Procedure Performed No -Wound/Ulcer Outcome Healed- Epithelialized 6-left heel -Time 09:52 10:22 10:10 -Correct Patient Yes Yes Yes -Correct Side, Site, Position Yes Yes Yes -Correct Procedure Yes Yes Yes -Procedure Performed Yes Yes Yes -Type of Procedure Debridement Debridement Debridement -Clinical Debridement Subcutaneous Subcutaneous Subcutaneous -Tissue Removed Subcutaneous Subcutaneous Subcutaneous -Post Debridement (cm) - Length 1.4 1.2 1.0 -Post Debridement (cm) - Width 1.1 1.2 1.2 -Post Debridement (cm) - Depth 0.1 0.1 0.1 -Total Square (Post) (cm) 1.54 1.44 1.20 -Area of Debridement (cm) - Length 1.4 1.2 1.0 -Area of Debridement (cm) - Width 1.1 1.2 1.2 -Total Square (Area) (cm) 1.54 1.44 1.20 -Tunneling No No No -Undermining/Tunneling No No No -Circular Undermining No No No -Wound/Ulcer Outcome Not Healed Not Healed Not Healed -Ulcer Cleansing Rinsed/ Rinsed/ Rinsed/ Irrigated with Irrigated with Irrigated with Saline Saline Saline -Foul Odor after Cleansing No No No -Bioengineered Tissue Yes Yes Yes -Type of Bioengineered Tissue Epifix Epifix Epifix 18mm Disc -Expiration Date 08/30/26 08/30/26 08/30/26 -Product Lot Number [id number] -Percent Used 100 100 100 -Bleeding Controlled with Pressure Pressure Pressure -Treatment Response Procedure Procedure Procedure Tolerated Well Tolerated Well Tolerated Well -Debridement - Subq, 1st 20sq cm No No No -Apply Skin Sub - 1st 25 sq cm - Feet 1 1 1 -Epifix (per sq cm) 4 4 -Epifix 18mm Disc 3 Pain Scale: 0-10 Numeric Is Patient Pain Free? Yes Yes Yes - Nurse 3 - General Ulcer D/C NN Start: 11/30/21 09:33 Freq: Status: Active Protocol: Activity Type Activity Date Activity User E-sign Co-sign Detail Recorded Client Recorded Date Recorded By Document 11/30/21 10:[address] [facility] [id number] 11/30/21 10:[address] [facility] Document 12/07/21 10:49 ND [id number] 12/07/21 10:50 [place] Document 12/14/21 11:01 KR [id number] 12/14/21 11:02 KR Document 12/19/21 11:11 KR [id number] 12/19/21 11:12 KR 11/30/21 12/07/21 12/14/21 10:14 10:49 11:01 Wound Care Nurse 3 6-left heel -Ulcer Cleansing Rinsed/ Irrigated with Saline -Foul Odor after Cleansing No -Negative Pressure Wound Therapy N/A -Other Dressing EPIFIX ABD ABD -Other Covering HEEL HAT BLE -Lotion applied to leg before No No compression wrap -Multi-Layered Wrap Application Multi-Layer Multi-Layer Multi-Layer Comp - Bilat ($ Comp - Bilat ($ Comp - Bilat ($ ) ) ) -Stockings No Treatment Response Procedure Tolerated Well Vital Signs Temperature (97.8 F-99.1 F) Temperature Source Pulse Rate (60-100) Pulse Location Blood Pressure (90/60-120/80) Blood Pressure Mean (mm Hg) Source Position Blood Pressure Location Pain Scale: 0-10 Numeric Is Patient Pain Free? Yes Yes Yes WC - Visit Discharge Discharge Condition Stable Stable Stable Ambulatory Status Ambulatory, Ambulatory, Ambulatory, Walker Walker Walker Transportation Private Auto Accompanied by Medication Reconcilliation completed & Yes Yes provided to patient/care provider Clinical Summary of Care Provided Yes Yes 12/19/21 11:11 Wound Care Nurse 3 6-left heel -Ulcer Cleansing -Foul Odor after Cleansing -Negative Pressure Wound Therapy -Other Dressing ABD pad -Other Covering BLE -Lotion applied to leg before compression wrap -Multi-Layered Wrap Application Multi-Layer Comp - Bilat ($ ) -Stockings Treatment Response Vital Signs Temperature (97.8 F-99.1 F) 97.0 F L Temperature Source Temporal Pulse Rate (60-100) 87 Pulse Location Monitor Blood Pressure (90/60-120/80) 202/90 H Blood Pressure Mean (mm Hg) 127 Source Monitor Position Semi-Fowlers Blood Pressure Location Left Arm Pain Scale: 0-10 Numeric Is Patient Pain Free? Yes WC - Visit Discharge Discharge Condition Stable Ambulatory Status Walker Transportation Accompanied by [facility] Medication Reconcilliation completed & provided to patient/care provider Clinical Summary of Care Provided Assessment/Plan Assessment/Plan (1) Pressure ulcer of left heel, stage 2: CODE(S): L89.622 - Pressure ulcer of left heel, stage 2 (2) Chronic kidney disease (CKD) stage G3a/A2, moderately decreased glomerular filtration rate (GFR) between 45-59 mL/min/1.73 square meter and albuminuria creatinine ratio between 30-299 mg/g: CODE(S): N18.31 - Chronic kidney disease, stage 3a (3) Pain in left foot: CODE(S): M79.672 - Pain in left foot (4) Type II diabetes mellitus: CODE(S): E11.9 - Type 2 diabetes mellitus without complications QUALIFIERS: Diabetes mellitus complication detail: with polyneuropathy Diabetes mellitus complication status: with neurologic complications Diabetes mellitus jail insulin use: unspecified terminal block assembler insulin use status Qualified Code(s): E11.42 - Type 2 diabetes mellitus with diabetic polyneuropathy (5) Bilateral edema of lower extremity: CODE(S): R60.0 - Localized edema PLAN: Plan Patient seen and evaluated. Ulceration to the left plantar heel demonstrates a pink wound base with healthy granular tissue. Ulceration site demonstrates no signs of infection.? Wound margins healthy and atrophic.? Ulceration site was sharply debrided as stated in the clinical panel above. This was tolerated well.? Ulcerative site measures 1.3 cm x 1.1 cm x 0.1 cm. Site was dressed with Samantha and dry sterile dressing. She is to change the dressing daily ulcer site continues to demonstrate good healing progression with continued reduction in size. I discussed with her again today her general weakness and ill appearing state. Patient is a type II diabetic and blood sugar was checked at home before presentation to clinic and was measured at 220mg/dL. She states she is on insulin 14 units in the morning. She states she has an appointment with her PCP early next week. She has multiple wounds secondary to blister formations to the left and right extremity secondary to edema. These are currently healed and stable with no signs of infection. Left lower extremity dressed with 3M compression wrap.?Right leg dressed with 3M compression wrap. I discussed continued elevation of her legs aid in edema reduction and to remain compliant with her compression dressings. She continues to demonstrate progression in healing status of multiple wounds, with bilateral lower extremity edema remaining well-controlled today. She will return to the wound care center on Saturday?for a dressing change to bilateral leg. I discussed with her localized signs of infection.? She is to observe for any erythema or redness moving up the leg, malodor to the ulceration site, purulent drainage from the ulceration site, increased pain to the left heel, or if she experiences any nausea, vomiting, fever, chills or other constitutional symptoms that these are signs of a progressing infection and she needs to report to the ED.? She voices understanding of this. The following work up and care recommendations were made: Dressing: Samantha and DSD to left heel; Adaptic to blister sites with Aquacel Ag and Suprasorb, left leg 3M compression wrap; right lower extremity 3M compression wrap Wash: Soap and water Tissue growth optimization: Samantha Offload: Offloading surgical shoe with heel cut out Vascular: Palpable pedal pulses Edema: Elevation of lower extremities and Compression wrap left lower extremity.? 3M compression wrap bilateral legs Infection: No localized signs of infection Pain: Patient may take [id number] Tylenol extra strength for pain control Host factors: Diabetes mellitus type 2, history of osteomyelitis left heel ? I answered all the patient's questions.? To return to the wound healing center in 1 week or call sooner if the patient has any questions or concerns. ? Note: [email or web address] speech recognition account relationship manager software was used to create portions of this document. Sound-alike and misspelled words, as well as other account relationship manager errors may be contained in the documentation.
--- NOTE | 2021-12-21 09:52 | NURSING ---
Patient appeared to be unsteady. Pt stated blood sugar was 220 this morning. pt was advised to go to the hospital if not feeling well. Pt refused and stated she was just going to go home
[2021-12-26 14:58] VITALS: TEMP 36.1
--- NOTE | 2021-12-26 14:59 | NURSING ---
Pt came into Wound Center for Nurse visit today. Pt appeared to be unsteady. Pt was advised to go to the ED. Pt refused and stated i do not want to go because i am afraid they will keep me over night.
[2021-12-28 09:29] VITALS: BP 126/69; PULSE 74; TEMP 36.1
--- NOTE | 2021-12-28 09:47 | PCM.WC.PN ---
History of Present Illness Date of Service: 12/28/21 Chief Complaint: left heel ulcer left ankle ulcer- healed History of Wound: In October 2019, patient had rubbing in shoes while shopping which led to a blister that developed into an ulceration. Patient was then seen by Dewey Amezquita.P.M. for wound care. Patient then became infected and was admitted to the hospital. Patient was noted to have OM on MRI. Patient wanted to avoid surgery so a watermelon harvesting supervisor course of appropriate IV antibiotics was the treatment chosen. Patient was also noted to have hyperglycemia and has worked with hospitalist and PCP to try to get better control. Blood sugar levels remain elevated. Patient also had LEAS obtained in the hospital which suggested patient had the proper blood flow to allow healing. Patient has since finished watermelon harvesting supervisor course of antibiotics. Patient has since been seen on a weekly basis in office with progression and regression of wound noted over the weeks. Patient has tried various dressing options including wet to dry and santyl. The most progress was noted with Santyl but patient ran out and was unable to refill due to insurance issues. During which time the wound regressed. She also has an offloading surgical shoe and offloading boot to relieve pressure. Patient care is henceforth being carried out at the wound care center. Patient not currently on any antibiotics. Patient has since began skin graft aplications significant improvement is been noted to her foot overall. Patient has finished epifix graft applications with some very small remaining wound noted to left heel. Patient has new wounds noted to bilateral third digits. The right 3rd digit wound has healed. Her left ankle ulcer remains healed Patient relates that ambulation is getting easier and she is rebuilding her strength slowly. She has not had any worsening of minor remaining heel wound since beginning ambulation again. 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 Her has been helping her change the dressings daily to the left heel. She presents to the wound care center today for continued care of her left heel ulceration. Subjective Subjective This is a 61-year-old female who presents for follow-up to the wound care center for a left heel ulceration and circumferential leg wounds bilateral.? She states she is continuing keeping her feet elevated and has noticed that her swelling remains decreased.?She denies any constitutional symptoms today.? However she states that she feels a little weak and had some trouble walking into clinic today, and appears ill. ?She has been changing her outer layer dressings daily to the heel.? She has been coming to the wound care center for nurse visits to perform dressing changes.?She has no further complaints today. Objective Data Objective Data Vital Signs: Vital Signs Temp Pulse Resp BP O2 Del Method 96.9 F L 74 18 126/69 H Room Air 12/28/21 09:29 12/28/21 09:29 12/07/21 10:02 12/28/21 09:29 12/07/21 10:02 Oxygen Delivery Method Room Air Physical Exam Const alert, oriented x3 and no apparent distress General Appearance: cooperative HEENT normocephalic Eyes General Eye: normal appearance of both eyes Neck General: normal visual inspection Lymph Lymphatic: no lymphadenopathy noted and no lymphedema noted Resp normal respiratory effort Cardio regular rate and regular rhythm Extremity normal capillary refill, no joint enlargement and no calf tenderness Skin no rashes or lesions noted, skin turgor normal and no jaundice General Skin Exam: venous stasis and dermatitis Wound Narrative: Right lower extremity: Circumferential leg wounds secondary to blister formation remain healed at this time.? Wound to the dorsal aspect of the third digit secondary to trauma is healed.? Ulceration is superficial and demonstrates no signs of infection. Left lower extremity heel decubitus ulceration.? Ulcerative site demonstrates pink wound base with scant fibrotic tissue throughout the wound bed with serosanguineous drainage and no signs of infection.? No palpable fluctuance noted to the left heel.? Ulcerative site does have hyperkeratotic tissue at the wound margins.? Ulcerative site demonstrates closure centrally with new skin formation. Left lower extremity circumferential wounds secondary to blister formation.? Site is stable no signs of infection. Neuro oriented x3 and moves all extremities Motor Exam: strength 5/5 throughout Debridement Note Debridement Note Wound debrided: Left plantar heel Laterality: Left Wound Grade/Stage: Glasgow stage II Type of Debridement: Excisional debridement Anesthesia Used: 5% Lidocaine Gel Depth: Down to and including healthy tissue and in the subcutaneous layer Percentage of wound debrided: 100 Instrument Used: 3mm curette Tissue Removed: Fibrous, devitalized subcutaneous, biofilm, slough Severity: Fat Layer Exposed Amount of bleeding with debridement: Mild Bleeding Controlled with: Compression and gauze Patient tolerated procedure: Patient tolerated procedure well Post-Debridement Measurements and Additional Note: Post-Debridement Measurements/Treatment - Nurse 1 - General Ulcer Assessment Start: 11/30/21 09:33 Freq: Status: Active Protocol: MOOK Activity Type Activity Date Activity User E-sign Co-sign Detail Recorded Client Recorded Date Recorded By Document 11/30/21 09:36 KS [id number] 11/30/21 09:43 MT Document 12/07/21 10:02 KS [id number] 12/07/21 10:06 MT Document 12/14/21 09:49 KR [id number] 12/14/21 09:50 KR Document 12/19/21 11:11 KR [id number] 12/19/21 11:12 KR Document 12/21/21 09:17 KR [id number] 12/21/21 09:22 KR Document 12/26/21 14:58 KR [id number] 12/26/21 15:05 KR Document 12/28/21 09:29 KR [id number] 12/28/21 09:33 KR 11/30/21 12/07/21 12/14/21 09:36 10:02 09:49 - Today's Visit Information Type of service Follow-up Visit Follow-up Visit Follow-up Visit (Physician/RECTIFICATION PRINTER (Physician/RECTIFICATION PRINTER (Physician/RECTIFICATION PRINTER ) ) ) Arrival Mode Ambulatory, Ambulatory, Ambulatory, Walker Walker Walker Accompanied by self Patient Identification Verified (Name & Yes Yes Yes ) Patient Requires Transmission-Based Precautions Safety Precautions Fall Prevention Fall Prevention Finger Stick Blood Sugar(mg/dl) (if 288 171 indicated): Blood Sugar Stated by Stated by Patient Patient Vital Signs Temperature (97.8 F-99.1 F) 97 F L 97 F L 97.0 F L Temperature Source Temporal Temporal Temporal Pulse Rate (60-100) 74 69 73 Pulse Location Monitor Monitor Monitor Respiratory Rate (12-18) 18 18 Respiratory rate source Observation Observation Oxygen Delivery Method Room Air Room Air Blood Pressure (90/60-120/80) 122/73 H 111/70 115/61 Blood Pressure Mean (mm Hg) 89 83 79 Source Monitor Monitor Monitor Position Sitting Sitting Sitting Blood Pressure Location Left Arm Right Arm Left Arm History Since Last Visit- (Skip if this is Patient's initial visit) Have you changed medications since your No last visit? Any new allergies or adverse reactions No Had a fall/change in ADL's that may No increase risk of falls Signs or symptoms of abuse and/or No neglect since last visit Have you been in the hospital since your No last visit? Has dressing in place as prescribed Yes Yes Yes Has compression in place as prescribed Yes Yes Yes Has offloadiing in place as prescribed Yes Yes N/A Experienced any changes in pain level or Yes Yes No management Left Footwear Slipper No Footwear Right Footwear Regular Shoe Slipper No Footwear Pain Scale: 0-10 Numeric Is Patient Pain Free? Yes Yes Yes 12/19/21 12/21/21 12/26/21 11:11 09:17 14:58 WC - Today's Visit Information Type of service Nurse-only Follow-up Visit Nurse-only Visit (Physician/RECTIFICATION PRINTER Visit ) Arrival Mode Ambulatory, Ambulatory, Walker Walker Walker Accompanied by Patient Identification Verified (Name & Yes Yes Yes ) Patient Requires Transmission-Based Precautions Safety Precautions Finger Stick Blood Sugar(mg/dl) (if 220 192 indicated): Blood Sugar Stated by Stated by Patient Patient Vital Signs Temperature (97.8 F-99.1 F) 97.0 F L 97.0 F L 97.0 F L Temperature Source Temporal Temporal Temporal Pulse Rate (60-100) 87 74 Pulse Location Monitor Monitor Respiratory Rate (12-18) Respiratory rate source Oxygen Delivery Method Blood Pressure (90/60-120/80) 202/90 H 159/86 H Blood Pressure Mean (mm Hg) 127 110 Source Monitor Monitor Monitor Position Semi-Fowlers Semi-Fowlers Sitting Blood Pressure Location Left Arm Left Arm Left Arm History Since Last Visit- (Skip if this is Patient's initial visit) Have you changed medications since your No No last visit? Any new allergies or adverse reactions No No Had a fall/change in ADL's that may No No increase risk of falls Signs or symptoms of abuse and/or No No neglect since last visit Have you been in the hospital since your No No last visit? Has dressing in place as prescribed Yes Yes Has compression in place as prescribed Yes Yes Has offloadiing in place as prescribed N/A N/A Experienced any changes in pain level or No No management Left Footwear No Footwear Regular Shoe Right Footwear No Footwear Regular Shoe Pain Scale: 0-10 Numeric Is Patient Pain Free? Yes Yes Yes 12/28/21 09:29 WC - Today's Visit Information Type of service Follow-up Visit (Physician/RECTIFICATION PRINTER ) Arrival Mode Ambulatory Accompanied by Patient Identification Verified (Name & No ) Patient Requires Transmission-Based No Precautions Safety Precautions Finger Stick Blood Sugar(mg/dl) (if indicated): Blood Sugar Vital Signs Temperature (97.8 F-99.1 F) 96.9 F L Temperature Source Temporal Pulse Rate (60-100) 74 Pulse Location Monitor Respiratory Rate (12-18) Respiratory rate source Oxygen Delivery Method Blood Pressure (90/60-120/80) 126/69 H Blood Pressure Mean (mm Hg) 88 Source Monitor Position Blood Pressure Location History Since Last Visit- (Skip if this is Patient's initial visit) Have you changed medications since your No last visit? Any new allergies or adverse reactions No Had a fall/change in ADL's that may No increase risk of falls Signs or symptoms of abuse and/or No neglect since last visit Have you been in the hospital since your No last visit? Has dressing in place as prescribed Yes Has compression in place as prescribed Yes Has offloadiing in place as prescribed N/A Experienced any changes in pain level or No management Left Footwear Right Footwear Pain Scale: 0-10 Numeric Is Patient Pain Free? Yes - Nurse 1 - General Ulcer Measurement Start: 11/30/21 09:33 Freq: Status: Active Protocol: Activity Type Activity Date Activity User E-sign Co-sign Detail Recorded Client Recorded Date Recorded By Document 11/30/21 09:36 [place] [id number] 11/30/21 09:43 MT Document 12/07/21 10:02 [place] [id number] 12/07/21 10:06 MT Document 12/14/21 09:49 KR [id number] 12/14/21 09:50 KR Document 12/21/21 09:17 KR [id number] 12/21/21 09:22 KR Document 12/28/21 09:29 KR [id number] 12/28/21 09:33 KR 11/30/21 12/07/21 12/14/21 09:36 10:02 09:49 Wound Center Nurse 1 #15 Right Second Toe -Current Size (cm) - Length 0.5 -Current Size (cm) - Width 2.0 -Current Size (cm) - Depth 0.1 -Total Square Cm 1.00 6-left heel -Combined with other wound -Current Size (cm) - Length 2 1.2 1 -Current Size (cm) - Width 1.3 1.2 2.1 -Current Size (cm) - Depth 0.1 0.1 0.2 -Total Square Cm 2.6 1.44 2.1 -Photo Taken -Tunneling -Undermining/Tunneling -Circular Undermining -Change in Wound Grade/Stage -Exudate Amt Medium Medium Small -Exudate Type Serosanguineous Serous Serosanguineous -Wound Margin Flat & Intact Thickened & Distinct, Rolled Under Outline Attached -Granulation Amt Medium (34-66%) Medium (34-66%) Small (1-33%) -Granulation Quality Pale,[place] Pale,[place] -Slough/Fibrin -Necrosis Amt Medium (34-66%) Small (1-33%) None Present (0 %) -Necrotic Tissue Type Adherent Slough -Structure Exposed -Texture (Bren-wound Skin Appearance) Assessed Assessed,Callus -Moisture (Bren-wound Skin Appearance) Assessed No Abnormality, Assessed -Color (Bren-wound Skin Appearance) Assessed, No Abnormality, Hemosiderin Assessed Staining -Temperature (Bren-wound Skin No Abnormality No Abnormality Appearance) (Pt Warm) (Pt Warm) -Tenderness on Palpation (Bren-wound No No Skin Appearance) -Ulcer Cleansing Soap and Water Rinsed/ Irrigated with Saline -Foul Odor after Cleansing No No -Anesthetic Used 4% Lidocaine 5% Lidocaine Solution Gel Lower Limb Edema Present Right Calf (cm) 34.5 36.1 Right Ankle (cm) 22.5 25 Left Calf (cm) 33 39 Left Ankle (cm) 23 24.5 12/21/12/28/21 09:17 09:29 Wound Center Nurse 1 #15 Right Second Toe -Current Size (cm) - Length -Current Size (cm) - Width -Current Size (cm) - Depth -Total Square Cm 6-left heel -Combined with other wound No -Current Size (cm) - Length 1.5 0.6 -Current Size (cm) - Width 1.4 0.5 -Current Size (cm) - Depth 0.1 0.1 -Total Square Cm 2.10 0.30 -Photo Taken No -Tunneling No -Undermining/Tunneling No -Circular Undermining No -Change in Wound Grade/Stage No -Exudate Amt Small Medium -Exudate Type Serosanguineous Serosanguineous -Wound Margin Distinct, Distinct, Outline Outline Attached Attached -Granulation Amt None Present (0 Medium (34-66%) %) -Granulation Quality [place] -Slough/Fibrin Yes -Necrosis Amt Large (67-100%) Medium (34-66%) -Necrotic Tissue Type Adherent Slough Adherent Slough -Structure Exposed N/A -Texture (Bren-wound Skin Appearance) Assessed, No Abnormality, Scarring Assessed -Moisture (Bren-wound Skin Appearance) No Abnormality, No Abnormality, Assessed Assessed -Color (Bren-wound Skin Appearance) No Abnormality, No Abnormality, Assessed Assessed -Temperature (Bren-wound Skin No Abnormality No Abnormality Appearance) (Pt Warm) (Pt Warm) -Tenderness on Palpation (Bren-wound No No Skin Appearance) -Ulcer Cleansing Soap and Water Soap and Water -Foul Odor after Cleansing No No -Anesthetic Used 5% Lidocaine 5% Lidocaine Gel Gel Lower Limb Edema Present No Right Calf (cm) 34 Right Ankle (cm) 24.5 Left Calf (cm) 33 33.8 Left Ankle (cm) 22 22.4 WC - Nurse 2 - General Ulcer CM Notes Start: 11/30/21 09:33 Freq: Status: Active Protocol: Activity Type Activity Date Activity User E-sign Co-sign Detail Recorded Client Recorded Date Recorded By Document 11/30/21 12:25 PL [id number] 11/30/21 12:30 PL Document 12/07/21 12:17 PL [id number] 12/07/21 12:19 PL Document 12/14/21 10:22 PL [id number] 12/14/21 10:24 PL Document 12/21/21 11:32 PL [id number] 12/21/21 11:32 PL 11/30/21 12/07/21 12/14/21 12:25 12:17 10:22 Wound Center Nurse 2 #15 Right Second Toe -Procedure Performed No -Wound/Ulcer Outcome Healed- Epithelialized 6-left heel -Time 09:52 10:22 10:10 -Correct Patient Yes Yes Yes -Correct Side, Site, Position Yes Yes Yes -Correct Procedure Yes Yes Yes -Procedure Performed Yes Yes Yes -Type of Procedure Debridement Debridement Debridement -Clinical Debridement Subcutaneous Subcutaneous Subcutaneous -Tissue Removed Subcutaneous Subcutaneous Subcutaneous -Post Debridement (cm) - Length 1.4 1.2 1.0 -Post Debridement (cm) - Width 1.1 1.2 1.2 -Post Debridement (cm) - Depth 0.1 0.1 0.1 -Total Square (Post) (cm) 1.54 1.44 1.20 -Area of Debridement (cm) - Length 1.4 1.2 1.0 -Area of Debridement (cm) - Width 1.1 1.2 1.2 -Total Square (Area) (cm) 1.54 1.44 1.20 -Tunneling No No No -Undermining/Tunneling No No No -Circular Undermining No No No -Wound/Ulcer Outcome Not Healed Not Healed Not Healed -Ulcer Cleansing Rinsed/ Rinsed/ Rinsed/ Irrigated with Irrigated with Irrigated with Saline Saline Saline -Foul Odor after Cleansing No No No -Bioengineered Tissue Yes Yes Yes -Type of Bioengineered Tissue Epifix Epifix Epifix 18mm Disc -Expiration Date 08/30/26 08/30/26 08/30/26 -Product Lot Number [id number] -Percent Used 100 100 100 -Bleeding Controlled with Pressure Pressure Pressure -Treatment Response Procedure Procedure Procedure Tolerated Well Tolerated Well Tolerated Well -Debridement - Subq, 1st 20sq cm No No No -Apply Skin Sub - 1st 25 sq cm - Feet 1 1 1 -Epifix (per sq cm) 4 4 -Epifix 18mm Disc 3 Pain Scale: 0-10 Numeric Is Patient Pain Free? Yes Yes Yes 12/21/21 11:32 Wound Center Nurse 2 #15 Right Second Toe -Procedure Performed -Wound/Ulcer Outcome 6-left heel -Time 09:30 -Correct Patient Yes -Correct Side, Site, Position Yes -Correct Procedure Yes -Procedure Performed Yes -Type of Procedure Debridement -Clinical Debridement Subcutaneous -Tissue Removed Subcutaneous -Post Debridement (cm) - Length 1.4 -Post Debridement (cm) - Width 1.2 -Post Debridement (cm) - Depth 0.1 -Total Square (Post) (cm) 1.68 -Area of Debridement (cm) - Length 1.4 -Area of Debridement (cm) - Width 1.2 -Total Square (Area) (cm) 1.68 -Tunneling No -Undermining/Tunneling No -Circular Undermining No -Wound/Ulcer Outcome Not Healed -Ulcer Cleansing Rinsed/ Irrigated with Saline -Foul Odor after Cleansing No -Bioengineered Tissue No -Type of Bioengineered Tissue -Expiration Date -Product Lot Number -Percent Used -Bleeding Controlled with Pressure -Treatment Response Procedure Tolerated Well -Debridement - Subq, 1st 20sq cm Yes -Apply Skin Sub - 1st 25 sq cm - Feet -Epifix (per sq cm) -Epifix 18mm Disc Pain Scale: 0-10 Numeric Is Patient Pain Free? Yes WC - Nurse 3 - General Ulcer D/C NN Start: 11/30/21 09:33 Freq: Status: Active Protocol: Activity Type Activity Date Activity User E-sign Co-sign Detail Recorded Client Recorded Date Recorded By Document 11/30/21 10:14 [facility] [id number] 11/30/21 10:15 [facility] Document 12/07/21 10:49 [place] [id number] 12/07/21 10:50 [place] Document 12/14/21 11:01 KR [id number] 12/14/21 11:02 KR Document 12/19/21 11:11 KR [id number] 12/19/21 11:12 KR Document 12/21/21 09:51 KR [id number] 12/21/21 09:54 KR Document 12/26/21 14:58 KR [id number] 12/26/21 15:05 KR 11/30/21 12/07/21 12/14/21 10:14 10:49 11:01 Wound Care Nurse 3 6-left heel -Ulcer Cleansing Rinsed/ Irrigated with Saline -Foul Odor after Cleansing No -Negative Pressure Wound Therapy N/A -Primary Dressing Applied -Other Dressing EPIFIX ABD ABD -Primary Dressing Covered/Secured with -Other Covering HEEL HAT -Promogran Samantha Matter BLE -Lotion applied to leg before No No compression wrap -Multi-Layered Wrap Application Multi-Layer Multi-Layer Multi-Layer Comp - Bilat ($ Comp - Bilat ($ Comp - Bilat ($ ) ) ) -Stockings No Treatment Response Procedure Tolerated Well Vital Signs Temperature (97.8 F-99.1 F) Temperature Source Pulse Rate (60-100) Pulse Location Blood Pressure (90/60-120/80) Blood Pressure Mean (mm Hg) Source Position Blood Pressure Location Pain Scale: 0-10 Numeric Is Patient Pain Free? Yes Yes Yes WC - Visit Discharge Discharge Condition Stable Stable Stable Ambulatory Status Ambulatory, Ambulatory, Ambulatory, Walker Walker Walker Transportation Private Auto Accompanied by Medication Reconcilliation completed & Yes Yes provided to patient/care provider Clinical Summary of Care Provided Yes Yes 12/19/21 12/21/21 12/26/21 11:11 09:51 14:58 Wound Care Nurse 3 6-left heel -Ulcer Cleansing Rinsed/ Irrigated with Saline -Foul Odor after Cleansing -Negative Pressure Wound Therapy -Primary Dressing Applied Promogran Promogran Samantha Matter Samantha Matter -Other Dressing ABD pad -Primary Dressing Covered/Secured with Dry Gauze, Secured with Tape -Other Covering -Promogran Samantha Matter 1 1 BLE -Lotion applied to leg before compression wrap -Multi-Layered Wrap Application Multi-Layer Multi-Layer Multi-Layer Comp - Bilat ($ Comp - Bilat ($ Comp - Bilat ($ ) ) ) -Stockings Treatment Response Vital Signs Temperature (97.8 F-99.1 F) 97.0 F L 97.0 F L Temperature Source Temporal Temporal Pulse Rate (60-100) 87 Pulse Location Monitor Blood Pressure (90/60-120/80) 202/90 H Blood Pressure Mean (mm Hg) 127 Source Monitor Monitor Position Semi-Fowlers Sitting Blood Pressure Location Left Arm Left Arm Pain Scale: 0-10 Numeric Is Patient Pain Free? Yes Yes Yes WC - Visit Discharge Discharge Condition Stable Stable Stable Ambulatory Status Walker Walker Walker Transportation Private Auto [facility] Accompanied by [facility] Medication Reconcilliation completed & provided to patient/care provider Clinical Summary of Care Provided 12/26/21 14:59 Nursing Note by America Iqbal Pt came into Wound Center for Nurse visit today. Pt appeared to be unsteady. Pt was advised to go to the ED. Pt refused and stated i do not want to go because i am afraid they will keep me over night. Initialized on 12/26/21 14:59 - END OF NOTE 12/21/21 09:52 Nursing Note by America Iqbal Patient appeared to be unsteady. Pt stated blood sugar was 220 this morning. pt was advised to go to the hospital if not feeling well. Pt refused and stated she was just going to go home Initialized on 12/21/21 09:52 - END OF NOTE Assessment/Plan Assessment/Plan (1) Pressure ulcer of left heel, stage 2: CODE(S): L89.622 - Pressure ulcer of left heel, stage 2 (2) Chronic kidney disease (CKD) stage G3a/A2, moderately decreased glomerular filtration rate (GFR) between 45-59 mL/min/1.73 square meter and albuminuria creatinine ratio between 30-299 mg/g: CODE(S): N18.31 - Chronic kidney disease, stage 3a (3) Pain in left foot: CODE(S): M79.672 - Pain in left foot (4) Type II diabetes mellitus: CODE(S): E11.9 - Type 2 diabetes mellitus without complications QUALIFIERS: Diabetes mellitus complication detail: with polyneuropathy Diabetes mellitus complication status: with neurologic complications Diabetes mellitus watermelon harvesting supervisor insulin use: unspecified group home insulin use status Qualified Code(s): E11.42 - Type 2 diabetes mellitus with diabetic polyneuropathy (5) Bilateral edema of lower extremity: CODE(S): R60.0 - Localized edema PLAN: Plan Patient seen and evaluated. Ulceration to the left plantar heel demonstrates a pink wound base with healthy granular tissue. Ulceration site demonstrates no signs of infection.? Wound margins healthy and atrophic.? Ulceration site was sharply debrided as stated in the clinical panel above. This was tolerated well.? Ulcerative site measures 1.5 cm x 1.4 cm x 0.1 cm. Site was dressed with Samantha and dry sterile dressing. She is to change the dressing daily. I discussed with her again today her general weakness and ill appearing state. Patient is a type II diabetic and has had elevated blood sugars over the last 3 weeks. She continues to state she has an appointment with her PCP early next week. I again urged her to go to the ED for evaluation she continues to refuse. She has multiple wounds secondary to blister formations to the left and right extremity secondary to edema. These are currently healed and stable with no signs of infection. Left lower extremity dressed with 3M compression wrap.?Right leg dressed with 3M compression wrap. I discussed continued elevation of her legs aid in edema reduction and to remain compliant with her compression dressings. She continues to demonstrate progression in healing status of multiple wounds, with bilateral lower extremity edema remaining well-controlled today. She will return to the wound care center on Saturday?for a dressing change to bilateral leg. I discussed with her localized signs of infection.? She is to observe for any erythema or redness moving up the leg, malodor to the ulceration site, purulent drainage from the ulceration site, increased pain to the left heel, or if she experiences any nausea, vomiting, fever, chills or other constitutional symptoms that these are signs of a progressing infection and she needs to report to the ED.? She voices understanding of this. The following work up and care recommendations were made: Dressing: Samantha and DSD to left heel; Adaptic to blister sites with Aquacel Ag and Suprasorb, left leg 3M compression wrap; right lower extremity 3M compression wrap Wash: Soap and water Tissue growth optimization: Samantha Offload: Offloading surgical shoe with heel cut out Vascular: Palpable pedal pulses Edema: Elevation of lower extremities and Compression wrap left lower extremity.? 3M compression wrap bilateral legs Infection: No localized signs of infection Pain: Patient may take [id number] Tylenol extra strength for pain control Host factors: Diabetes mellitus type 2, history of osteomyelitis left heel ? I answered all the patient's questions.? To return to the wound healing center in 1 week or call sooner if the patient has any questions or concerns. ? Note: [employer] speech recognition liaison inspection laboratory assistant software was used to create portions of this document. Sound-alike and misspelled words, as well as other liaison inspection laboratory assistant errors may be contained in the documentation.
== END 2021-12-29 23:59 | disposition home or self-care (01) ==
LOC: WC 09:15
PROVIDERS: PCP Family Medicine; Visit Provider Student in an Organized Health Care Education/Training Program
DX: E11.621 Type 2 diabetes mellitus with foot ulcer (principal); L89.622 Pressure ulcer of left heel, stage 2; E11.22 Type 2 diabetes mellitus with diabetic chronic kidney disease; E11.42 Type 2 diabetes mellitus with diabetic polyneuropathy; E11.65 Type 2 diabetes mellitus with hyperglycemia; N18.31 Chronic kidney disease, stage 3a; R60.0 Localized edema; M79.672 Pain in left foot
CPT/HCPCS: 11042; 15275; 29581; 82962; Q4186

== ENCOUNTER 2022-01-06 06:52 | Inpatient (IN) | payer MEDICARE, MEDICAID, SELFPAY ==
[2022-01-06] VITALS (19 sets, daily range): BP systolic 135–189; BP diastolic 57–149; PULSE 70–99; RESP 12–17; TEMP 36.3–38.7; O2SAT 91–98; BMI 29.0; BMI 28.0
--- NOTE | 2022-01-06 07:07 | EKG12_ITS ---
Test Reason : DYSRHYTHMIA Blood Pressure : / mmHG Vent. Rate : 081 BPM Atrial Rate : 081 BPM P-R Int : 186 ms QRS Dur : 096 ms QT Int : 366 ms P-R-T Axes : 074 042 062 degrees QTc Int : 425 ms Normal sinus rhythm Nonspecific ST abnormality Abnormal ECG Confirmed by ALYSSIA AMEZCUA, KARLA ([id number]), publication editor RAFI DOMINGO ([id number]) on 01/09/2022 1:43:09 PM Referred By: MARCELL Confirmed By:KARLA CADE MD
--- NOTE | 2022-01-06 07:08 | RAD_ITS ---
STUDY: X-RAY CHEST REASON FOR EXAM: Female, 61 years old. Dyspnea and adventitial breath sounds TECHNIQUE: Single frontal view of the chest. COMPARISON: 02/13/2021 FINDINGS: There is no new focal consolidation. There is a stable right basilar curvilinear opacity which may reflect atelectasis and/or scarring. Normal size heart. Normal mediastinum and emily. Normal visualized pulmonary arteries. Normal visualized aortic arch and descending thoracic aorta. Normal visualized thoracic spine. Normal visualized ribs, clavicles, and shoulders. There is no demonstrated abnormality of the visualized soft tissue structures of the upper abdomen. RAD/Chest 1 View (Portable) IMPRESSION: No acute cardiopulmonary process. Electronically Signed: Kianna Ellis MD at 8:08 EDT ,
[2022-01-06] MEDS: 0.9% Normal Saline 1,000 ML 999 ML IV (07:15)
--- NOTE | 2022-01-06 07:17 | EX.ED.DYSGE1 ---
HPI History of Present Illness Chief Complaint: Hyperglycemia Detail of Chief Complaint: Not feeling well and high blood sugar Informant: patient Onset/Context/Timing Onset: Days (For the past 2 days) Context: Sudden Onset Timing: Continuous Quality: Not feeling well Location: Generalized Current Severity: Moderate Maximum Severity: Moderate Worsened by: Suspect hyperglycemia Relieved by: Nothing Associated Symptoms Associated Symptoms: Patient denies any associated symptoms other than thirst, dry mouth and jed Narrative Narrative: Patient is a 61-year-old woman with type 2 diabetes on insulin who presents because of not feeling well for the past 2 days. She denies fever, chills night sweats. She denies double vision, blurred vision or loss of vision. Denies ringing in ears decreased hearing. Denies rhinorrhea, congestion or postnasal drainage. Denies sore throat. She denies chest discomfort. She denies cough, shortness of breath or difficulty breathing. Denies dyspnea on exertion. She denies nausea, vomiting or diarrhea. She does endorse frequency. She denies hematuria or dysuria. She denies any new lesions. She denies history of GI bleed. She denies black or maroon-colored stool. She is not a good informant. Prior similar symptoms: Yes Recent Illness/Hospitalization: No PFSH PFS Medical History Cardiology follow-up encounter Chronic pain syndrome Closed intertrochanteric fracture of left hip Diabetes Dietary restriction Essential hypertension Excessive bleeding Fall Gastric reflux High cholesterol History of echocardiogram History of edema History of orthostatic hypotension History of stress test HLD (hyperlipidemia) HTN (hypertension) Hx of orthostatic hypotension Injury of head and neck Insulin dependent diabetes mellitus Low iron Malnutrition Migraine headache Migraine without aura Non-smoker Post-concussion syndrome Syncope Type II diabetes mellitus Vertigo Vomiting Wears glasses Home Medications diltiazem HCl 180 mg capsule,extended release 24 hr 180 mg PO DAILY HEART 12/17/18 [History Last Taken 02/13/21] insulin glargine 100 unit/mL (3 mL) subcutaneous pen 20 units subcut QHS DM 12/17/18 [History Last Taken 02/12/21] ondansetron 4 mg disintegrating tablet 4 mg PO Q6H PRN Nausea 12/17/18 [History Last Taken 1 Week Ago ~12/08/19] aspirin 81 mg chewable tablet 81 mg PO DAILY@0800 HEALTH MAINTENANCE 12/15/19 [History Last Taken 02/12/21] atorvastatin 40 mg tablet 40 mg PO QHS CHOLESTEROL 12/15/19 [History Last Taken 02/12/21] pantoprazole 40 mg tablet,delayed release 40 mg PO DAILY GERD 12/15/19 [History Last Taken 02/13/21] clonidine HCl 0.3 mg tablet 0.3 mg PO TID 30 days #90 tabs 12/19/19 [Rx Last Taken 02/13/21] acetaminophen 325 mg tablet (Tylenol) 650 mg PO Q6H PRN PRN Pain Score 1-3 /Temp>100.7 #0 tabs 02/17/21 [Rx Last Taken Unknown] cephalexin 500 mg capsule 500 mg PO Q8 #0 caps 02/17/21 [Rx Last Taken Unknown] cyclobenzaprine 5 mg tablet 5 mg PO TID PRN PRN spasm #0 tabs 02/17/21 [Rx Last Taken Unknown] enoxaparin 40 mg/0.4 mL subcutaneous syringe 40 mg (0.4 mL) subcut DAILY@0600 #0 mL 02/17/21 [Rx Last Taken Unknown] insulin lispro 100 unit/mL subcutaneous pen (Humalog KwikPen (U-100) Insulin) 10 unit (0.1 mL) subcut TIDCM #0 mL 02/17/21 [Rx Last Taken Unknown] oxycodone 5 mg tablet 5 mg PO Q4H PRN PRN Pain Score 4-10 7 days #20 tabs 02/17/21 [Rx Last Taken Unknown] polyethylene glycol 3350 17 gram oral powder packet 17 g PO DAILY PRN PRN Constipation #1 ea 02/17/21 [Rx Last Taken Unknown] pregabalin 75 mg capsule 75 mg PO BID 7 days #28 caps 02/17/21 [Rx Last Taken Unknown] cephalexin 500 mg capsule 500 mg PO Q6H 10 days #40 caps 05/15/21 [Rx Last Taken Unknown] Allergy/AdvReac Type Severity Reaction Status Date / Time metformin AdvReac Diarrhea Verified 01/06/22 06:57 Family History Mother Hypertension Father Cancer lymphoma, leukemia Emphysema of lung Grandmother Diabetes Surgical History History of cholecystectomy History of esophagogastroduodenoscopy (EGD) History of mandibular surgery Hx of colonoscopy Social History (Updated 01/06/22 @ 07:[address] Claudio Jj MD) household members: significant other Smoking Status: Never smoker alcohol intake: never substance use type: does not use ROS ROS ED Constitutional Constitutional ED: Denies chills, fever(s), subjective, sweats or weight loss Eyes Eyes: Denies blurry vision, change in vision or diplopia ENT ENT ED: Denies ear pain, rhinorrhea or sore throat Cardiovascular Cardiovascular: Denies chest pain, orthopnea, palpitations, paroxysmal nocturnal dyspnea or racing heartbeat Respiratory/Chest Respiratory/Chest: Denies cough, dyspnea, dyspnea on exertion, orthopnea or paroxysmal nocturnal dyspnea Gastrointestinal Gastrointestinal: Denies abdominal pain, constipation, diarrhea, melena, nausea or vomiting Genitourinary Genitourinary ED: Denies dysuria, hematuria or urinary frequency Musculoskeletal Musculoskeletal: Denies arthralgias, back pain, myalgias or neck pain Integumentary Reports other Details: Patient has wraps of both legs and feet due to lymphedema. ; Denies abscess, Abrasions or rash Neurologic Neurologic: Reports weakness; Denies headache(s) or paresthesias Psychiatric Psychiatric: Denies anxiety or depression Endocrine Endocrinology: Reports polydipsia and polyuria; Denies cold intolerance, heat intolerance or polyphagia Hematologic/Lymphatic Hematologic/Lymphatic: Reports systems reviewed and no addt'l complaints, except as documented and none Allergic/Immunologic Allergic/Immunologic ED: Denies mouth swelling, tongue swelling or urticaria EXAM Physical Exam Const Vital Signs: 01/06/22 06:53 01/06/22 06:59 01/06/22 07:50 Temperature 98.5 F Temperature Source Oral Pulse Rate 80 81 Respiratory Rate 17 16 Respiratory Effort Normal Respiratory Pattern Normal Blood Pressure 178/79 H 183/83 H Blood Pressure Mean 112 116 Pulse Ox 93 94 Oxygen Delivery Method Room Air Room Air 01/06/22 08:32 01/06/22 09:17 Temperature Temperature Source Pulse Rate 76 75 Respiratory Rate 14 12 Respiratory Effort Respiratory Pattern Blood Pressure 161/116 H 189/96 H Blood Pressure Mean 131 127 Pulse Ox 94 94 Oxygen Delivery Method Room Air Room Air Positive well nourished, well developed and unkempt Constitutional Narrative: Patient appears ill and pale. General Appearance ED: unkempt, well developed, NAD and pallor; Negative for cyanotic or diaphoretic HEENT Reports dry mucous membranes HEENT Narrative: Head is atraumatic no cephalic. Ears normal. TMs normal. Nares patent. Uvula midline. No deviation tongue with protrusion. There is no erythema or exudate of the posterior pharynx. Mouth ED: Yes dry mucous membranes Mouth: dry mucous membranes Eyes PERRL and EOMs intact bilaterally General Eye ED: Yes pale conjunctiva; Negative for scleral icterus Neck no lymphadenopathy, supple and no JVD Chest Wall inspection of chest normal and palpation of chest normal Resp normal respiratory effort and clear to auscultation bilaterally Cardio regular rate, regular rhythm, S1 normal heart sound, S2 normal heart sound and no murmurs GI normal to inspection, nondistended, normoactive bowel sounds, non-tender, non-distended and no masses; Negative for hepatosplenomegaly Back/Spine no CVA tenderness Extremity Extremity Narrative: Patient has lymphedema of both lower extremities. There is compressive dressing noted. Neuro oriented x3, CN's II-XII intact bilaterally and no sensory deficits noted Sensorium / Orientation: Negative for alert Motor Exam: strength 5/5 throughout Psych Psych Narrative: Affect is flat mood is depressed. Appearance: unkempt Skin No no wounds and No skin turgor normal General Skin Exam: pallor; Negative for jaundice Trauma: abrasion MDM MDM MDM Narrative Medical decision making narrative: Concern patient has hyperosmolar nonketotic hyperglycemia versus possible early DKA. We will need to evaluate for infectious cause, need to rule out metabolic derangements. Howard was placed for accurate I's and O's. 1 L of normal saline was ordered. EKG was obtained to rule out cardiac ischemia and to evaluate for changes consistent with hyperkalemia. Chest x-ray to evaluate for pneumonia since breath sounds were not normal. Lab Data Attestation: I reviewed the patient's lab results. Lab results narrative: CBC is remarkable for anemia. Patient at baseline. Patient has evidence of pseudohyponatremia with a sodium of 129. Glucose is 622. CO2 and anion gap are normal. Troponin is normal. Urine reveals glucose, occult blood, leukoesterase, greater than 100 WBCs with 1+ bacteria. Suspect this is patient's source of infection and because of hyperglycemia. Will obtain urine culture and treat with Rocephin since she has no antibiotic allergies. Labs: Laboratory Results - last 24 hr 01/06/22 01/06/22 01/06/22 07:04 07:04 07:04 WBC 10.1 RBC 3.06 L Hgb 8.3 L Hct 25.9 L MCV 84.6 MCH 27.1 MCHC 32.0 RDW Std Deviation 39.6 RDW Coeff of Chris 12.8 Plt Count 334 MPV 10.3 Immature Gran % (Auto) 1.200 H Neut % (Auto) 79.4 H Lymph % (Auto) 12.3 L [place] % (Auto) 5.1 Eos % (Auto) 1.7 Baso % (Auto) 0.3 Absolute Neuts (auto) 8.1 H Absolute Lymphs (auto) 1.25 Nucleated RBC % 0 Sodium 129 L Potassium 5.9 H Chloride 95 L Carbon Dioxide 28.0 Anion Gap 6 BUN 46 H Creatinine 3.23 H Estim Creat Clear Calc 16.87 Est GFR (MDRD) Af Amer 19 L Est GFR (MDRD) Non-Af 16 L BUN/Creatinine Ratio 14.2 Glucose 622 H* Calcium 8.8 Troponin I High Sens 6 Urine Color Urine Clarity Urine pH Ur Specific [place] Urine Protein Urine Glucose (UA) Urine Ketones Urine Occult Blood Urine Nitrite Urine Bilirubin Urine Urobilinogen Ur Leukocyte Esterase Urine RBC Urine WBC Ur Squamous Epith Cells Urine Bacteria Urine Mucus Acetone Level NEGATIVE POC Glucose 01/06/22 01/06/22 01/06/22 07:04 07:18 07:22 WBC RBC Hgb Hct MCV MCH MCHC RDW Std Deviation RDW Coeff of Chris Plt Count MPV Immature Gran % (Auto) Neut % (Auto) Lymph % (Auto) [place] % (Auto) Eos % (Auto) Baso % (Auto) Absolute Neuts (auto) Absolute Lymphs (auto) Nucleated RBC % Sodium Cancelled Potassium Cancelled Chloride Cancelled Carbon Dioxide Cancelled Anion Gap Cancelled BUN Cancelled Creatinine Cancelled Estim Creat Clear Calc Cancelled Est GFR (MDRD) Af Amer Cancelled Est GFR (MDRD) Non-Af Cancelled BUN/Creatinine Ratio Cancelled Glucose Cancelled Calcium Cancelled Troponin I High Sens Urine Color Yellow Urine Clarity Sl. Cloudy Urine pH 7.0 Ur Specific [place] 1.005 Urine Protein 100 H Urine Glucose (UA) 1000 H Urine Ketones Negative Urine Occult Blood 150 H Urine Nitrite Negative Urine Bilirubin Negative Urine Urobilinogen Normal Ur Leukocyte Esterase 500 H Urine RBC 0 SEEN Urine WBC >100 SEEN Ur Squamous Epith Cells 0 SEEN Urine Bacteria 1+ Urine Mucus 0 SEEN Acetone Level POC Glucose > 500 H* 01/06/22 08:31 WBC RBC Hgb Hct MCV MCH MCHC RDW Std Deviation RDW Coeff of Chris Plt Count MPV Immature Gran % (Auto) Neut % (Auto) Lymph % (Auto) [place] % (Auto) Eos % (Auto) Baso % (Auto) Absolute Neuts (auto) Absolute Lymphs (auto) Nucleated RBC % Sodium Potassium Chloride Carbon Dioxide Anion Gap BUN Creatinine Estim Creat Clear Calc Est GFR (MDRD) Af Amer Est GFR (MDRD) Non-Af BUN/Creatinine Ratio Glucose Calcium Troponin I High Sens Urine Color Urine Clarity Urine pH Ur Specific [place] Urine Protein Urine Glucose (UA) Urine Ketones Urine Occult Blood Urine Nitrite Urine Bilirubin Urine Urobilinogen Ur Leukocyte Esterase Urine RBC Urine WBC Ur Squamous Epith Cells Urine Bacteria Urine Mucus Acetone Level POC Glucose > 500 H* Radiography Diagnostic Testing: Clinical Impression(s) from Imaging Studies Chest X-Ray 01/06/22 07:08 IMPRESSION: No acute cardiopulmonary process. Electronically Signed: Kianna Ellis MD at 8:08 EDT , EKG Initial EKG: Attestation: I personally reviewed and interpreted this EKG as follows: Interpretation: Sinus Rhythm (Ventricular rate is 81. NV interval 186 ms. QS duration 96 ms. QT duration center 6 6 ms. [place] is normal. Computer is reading ossific ST T wave changes which is artifact. EKG is normal. There is no changes that would raise concern for hyperkalemia) Critical Care Time Critical Care Time: Yes Critical care time (excluding procedures): 30-74 minutes (32), Including time spent: (History, physical, documentation, review of prior records, interpretation laboratory results initiation of therapy), Discussing w/Patient &/or Family/Engineering Document Control Clerk, Discussing w/Consultants and Arranging Admission or Transfer Discharge Plan Triage Chief Complaint: Hyperglycemia ED Provider: Claudio Jj Dx/Rx/DC Orders Clinical Impression: Diabetes mellitus with hyperosmolarity without hyperglycemic hyperosmolar nonketotic coma, Complicated urinary tract infection, Pseudohyponatremia Prescriptions: No Action diltiazem HCl 180 MG capsule 180 mg PO DAILY ondansetron 4 MG tablet 4 mg PO Q6H PRN (Reason: Nausea) insulin glargine 100 UNITS/ML insulin pen 20 units subcut QHS pantoprazole 40 MG tablet 40 mg PO DAILY atorvastatin 40 MG tablet 40 mg PO QHS aspirin 81 MG tablet,chewable 81 mg PO DAILY@0800 clonidine HCl 0.3 MG tablet 0.3 mg PO TID 30 Days Qty: 90 1RF insulin lispro [Humalog KwikPen Insulin] 100 unit/mL Insulin Pen 10 unit subcut TIDCM Qty: 0 0RF acetaminophen [Tylenol] 325 mg Tablet 650 mg PO Q6H PRN PRN (Reason: Pain Score 1-3 /Temp>100.7) Qty: 0 0RF polyethylene glycol 3350 17 gram Powder In Packet 17 g PO DAILY PRN PRN (Reason: Constipation) Qty: 1 0RF cephalexin 500 mg Capsule 500 mg PO Q8 Qty: 0 0RF Rx Instructions: use for 5 days, then stop oxycodone 5 mg Tablet 5 mg PO Q4H PRN PRN (Reason: Pain Score 4-10) 7 Days Qty: 20 0RF enoxaparin 40 mg/0.4 mL Syringe 40 mg subcut DAILY@0600 Qty: 0 0RF cyclobenzaprine 5 mg Tablet 5 mg PO TID PRN PRN (Reason: spasm) Qty: 0 0RF pregabalin 75 mg Capsule 75 mg PO BID 7 Days Qty: 28 0RF cephalexin 500 mg capsule 500 mg PO Q6H 10 Days Qty: 40 0RF Primary Care Provider: Dennys Serrano Referrals: Dennys Serrano MD [Primary Care Provider] -
[2022-01-06 07:27] LABS: Absolute Lymphocyte Count 1.25 X10^3/uL (0.83-4.51); Absolute Neutrophil Count 8.1 X10^3/uL (2.0-7.7); Basophil# 0.03 X10^3/uL; Basophil% 0.3 % (0-1); Eosinophil# 0.17 X10^3/uL; Eosinophils% 1.7 % (0-5); Hematocrit 25.9 % (37-47); Hemoglobin 8.3 g/dL (12.0-15.0); Lymphocyte # 1.25 X10^3/ul (0.83-4.51); Lymphocyte % 12.3 % (19-41); Mean Corpuscular Hgb 27.1 pg (27.0-32.0); Mean Corpuscular Volume 84.6 fL (81-99); Mean Platelet Vol. 10.3 fl (6.2-12.0); Monocyte# 0.52 X10^3/uL; Monocyte% 5.1 % (0-10); NRBC Flagged by Analyzer 0 % (0-5); Neutrophil # 8.05 X10^3/uL (2.7-7.7); Neutrophil % 79.4 % (47-70); Platelet Count 334 K/mm3 (150-450); RBC Distribution Width CV 12.8 % (11.6-14.6); RBC Distribution Width SD 39.6 fl (35.1-43.9); Red Blood Count 3.06 M/mm3 (4.2-5.4); White Blood Count 10.1 K/mm3 (4.4-11.0)
[2022-01-06 07:41] LABS: Bedside Glucose > 500 mg/dL (74-106)
[2022-01-06 07:47] LABS: Anion Gap 6 (5-15); BUN 46 mg/dL (7-18); BUN/Creat Ratio 14.2 RATIO (10-20); Calcium,Total 8.8 mg/dL (8.5-10.1); Chloride 95 mmol/L (98-107); Creatinine, Serum 3.23 mg/dL (0.55-1.02); EST Glomerular Filtration Rate 16 mL/min (>60); Est Glom Filt Rate - Afr Amer 19 mL/min (>60); Estimated Creatinine Clearance 16.87 ml/min; Glucose 622 mg/dL (74-106); Potassium 5.9 mmol/L (3.5-5.1); Sodium Level 129 mmol/L (136-145); Troponin-I HS 6 pg/mL (3.0-54.0)
[2022-01-06 07:52] LABS: Mucous, Urine 0 SEEN /hpf (<or=2+); Red Blood Cells-Urine 0 SEEN /hpf (0-5); Squamous Epithelial Cells - UA 0 SEEN /hpf (5-10)
[2022-01-06 07:54] LABS: Color, Urine Yellow (Yellow); Glucose, Dipstick 1000 mg/dl (Normal); Ketone-Dipstick Negative (Negative); Leukocyte Esterase-Dipstick 500 /ul (Negative); Nitrite-Dipstick Negative (Negative); Occult Blood-Urine 150 /ul (Negative); Protein-Dipstick 100 mg/dl (Negative); Specific Gravity, Urine 1.005 (1.002-1.030); Urine Bilirubin Dipstick Negative (Negative); Urine Clarity Sl. Cloudy (Clear); Urine Urobilinogen Normal (Normal)
[2022-01-06 08:03] LABS: Bacteria 1+ /hpf (None Seen); White Blood Cells >100 SEEN /hpf (0-5)
[2022-01-06 08:50] LABS: Bedside Glucose > 500 mg/dL (74-106)
[2022-01-06] MEDS: Ceftriaxone 1 GM/50 ML BAG IV (08:50)
--- NOTE | 2022-01-06 09:09 | HP.PCM.HOS_ITS ---
HPI - General General Date of Admission: 01/06/22 Date of Service: 01/06/22 Chief Complaint: ELEVATED BLOOD SUGAR, FEELING UNWELL HPI Narrative LAYNE VINCENT, is a 61 F with a PMH as outlined who was admitted via the ED on 01/06/2022 with a complaitn of general feeling of unwellness for 2 days prior to admission. She just didnt feel well, and admitted to frequency with urination. However, she denied any fever, chills, cough, chest pain, palpitations, abdominal pain, dizziness, nausea, vomiting or diarrhea. Review of systems was otehwise negative. She has been aking her insulin. Vitals were BP of 161/116, IL of 76, RR of 14 and she was saturating at 94% on room air. CBC was significant for Hb of 8.3 and platelets of 334; wbc was only 10. Chemistry shwoed sodium of 129 with potassium of 5.9 and bicarb of 28. Cr was 3.23, with a baseline of ~1.2 and blood glucose was 622. Urinalysis showed .100 wbc/hpf and 1+ bacteria.CXR showed no acute cardiopulmonary process. She is being admitted to be managed for hyperglycemia, UTI and hyperkalemia [facility] Medical History Cardiology follow-up encounter Chronic pain syndrome Closed intertrochanteric fracture of left hip Diabetes Dietary restriction Essential hypertension Excessive bleeding Fall Gastric reflux High cholesterol History of echocardiogram History of edema History of orthostatic hypotension History of stress test HLD (hyperlipidemia) HTN (hypertension) Hx of orthostatic hypotension Injury of head and neck Insulin dependent diabetes mellitus Low iron Malnutrition Migraine headache Migraine without aura Non-smoker Post-concussion syndrome Syncope Type II diabetes mellitus Vertigo Vomiting Wears glasses Home Medications diltiazem HCl 180 mg capsule,extended release 24 hr 180 mg PO DAILY HEART 12/17/18 [History Last Taken 02/13/21] ondansetron 4 mg disintegrating tablet 4 mg PO Q6H PRN Nausea 12/17/18 [History Last Taken 1 Week Ago ~12/08/19] aspirin 81 mg chewable tablet 81 mg PO DAILY@0800 HEALTH MAINTENANCE 12/15/19 [History Last Taken 02/12/21] atorvastatin 40 mg tablet 40 mg PO QHS CHOLESTEROL 12/15/19 [History Last Taken 02/12/21] pantoprazole 40 mg tablet,delayed release 40 mg PO DAILY GERD 12/15/19 [History Last Taken 02/13/21] acetaminophen 325 mg tablet (Tylenol) 650 mg PO Q6H PRN PRN Pain Score 1-3 /Temp>100.7 #0 tabs 02/17/21 [Rx Last Taken Unknown] cyclobenzaprine 5 mg tablet 5 mg PO TID PRN PRN spasm #0 tabs 02/17/21 [Rx Last Taken Unknown] polyethylene glycol 3350 17 gram oral powder packet 17 g PO DAILY PRN PRN Constipation #1 ea 02/17/21 [Rx Last Taken Unknown] clonidine HCl 0.3 mg tablet 0.3 mg PO TID bp 01/06/22 [History Last Taken Unknown] insulin glargine 100 unit/mL (3 mL) subcutaneous pen (Lantus Solostar U-100 Insulin) 22 unit subcut QHS diabetes 01/06/22 [History Last Taken Unknown] insulin lispro 100 unit/mL subcutaneous pen (Humalog KwikPen (U-100) Insulin) 10 unit subcut TIDCM diabetes 01/06/22 [History Last Taken Unknown] pregabalin 75 mg capsule 50 mg PO TID neuropathy 01/06/22 [History Last Taken Unknown] sertraline 50 mg tablet 50 mg PO DAILY antidepressant 01/06/22 [History Last Taken Unknown] tramadol 50 mg tablet 50 mg PO BID PRN Pain 01/06/22 [History Last Taken Unknown] Allergy/AdvReac Type Severity Reaction Status Date / Time metformin AdvReac Diarrhea Verified 01/06/22 06:57 Family History Mother Hypertension Father Cancer lymphoma, leukemia Emphysema of lung Grandmother Diabetes Surgical History History of cholecystectomy History of esophagogastroduodenoscopy (EGD) History of mandibular surgery Hx of colonoscopy Social History (Updated 01/06/22 @ 07:[address] Claudio Jj MD) household members: significant other Smoking Status: Never smoker alcohol intake: never substance use type: does not use ROS Constitutional Constitutional: Reports anorexia, chills, fatigue, malaise and weakness; Denies change in weight or fever(s) Eyes Eyes: Denies change in vision ENT HEENT: Denies dysphagia or headache(s) Cardiovascular Cardiovascular: Denies chest pain, dyspnea on exertion, edema, lightheadedness, orthopnea, palpitations, paroxysmal nocturnal dyspnea, rapid heart rate or syncope Respiratory/Chest Respiratory/Chest: Reports hemoptysis; Denies cough, dyspnea, productive cough, shortness of breath at rest, shortness of breath with exertion or wheezing Gastrointestinal Gastrointestinal: Denies abdominal pain, diarrhea, nausea or vomiting Genitourinary Genitourinary: Denies burning urination or dysuria Musculoskeletal Musculoskeletal: Denies arthralgias, joint pain or joint swelling Neurologic Neurologic: Denies confusion, disequilibrium, dizziness, focal weakness, headache(s), numbness, seizures or syncope Psychiatric Psychiatric: Denies anxiety Endocrine Endocrinology: Denies change in body appearance Vital Signs Vital Signs Vital Signs: 01/06/22 06:53 01/06/22 06:59 01/06/22 07:50 Temperature 98.5 F Temperature Source Oral Pulse Rate 80 81 Respiratory Rate 17 16 Respiratory Effort Normal Respiratory Pattern Normal Blood Pressure 178/79 H 183/83 H Blood Pressure Mean 112 116 Pulse Ox 93 94 Oxygen Delivery Method Room Air Room Air 01/06/22 08:32 Temperature Temperature Source Pulse Rate 76 Respiratory Rate 14 Respiratory Effort Respiratory Pattern Blood Pressure 161/116 H Blood Pressure Mean 131 Pulse Ox 94 Oxygen Delivery Method Room Air Weight Weight: 174 lb 2.643 oz Body Mass Index (BMI) 29.0 Physical Exam Const alert, oriented x3 and no apparent distress General Appearance: cooperative HEENT normocephalic, head/scalp atraumatic and hearing grossly normal bilaterally HEENT Narrative: dry oral mucosal membranes Eyes PERRL, EOMs intact bilaterally and conjunctivae normal Neck no lymphadenopathy Resp normal respiratory effort, no retractions, no use of accessory muscles and clear to auscultation bilaterally Cardio regular rate, regular rhythm, S1 normal heart sound, S2 normal heart sound and no murmurs GI normal to inspection, nondistended, normoactive bowel sounds, soft to palpation, non-tender and non-distended Extremity normal to inspection, full ROM and no clubbing, cyanosis or edema Neuro oriented x3, CN's II-XII intact bilaterally and moves all extremities Sensorium / Orientation: awake and alert Motor Exam: strength 5/5 throughout Psych Psych Narrative: flat affect Results Lab / Micro Data Result Diagrams: 01/06/22 07:04 01/06/22 10:45 Labs: Laboratory Results - last 24 hr 01/06/22 07:04: WBC 10.1, RBC 3.06 L, Hgb 8.3 L, Hct 25.9 L, MCV 84.6, MCH 27.1, MCHC 32.0, RDW Std Deviation 39.6, RDW Coeff of Chris 12.8, Plt Count 334, MPV 10.3, Immature Gran % (Auto) 1.200 H, Neut % (Auto) 79.4 H, Lymph % (Auto) 12.3 L, [place] % (Auto) 5.1, Eos % (Auto) 1.7, Baso % (Auto) 0.3, Absolute Neuts (auto) 8.1 H, Absolute Lymphs (auto) 1.25, Nucleated RBC % 0 01/06/22 07:04: Sodium 129 L, Potassium 5.9 H, Chloride 95 L, Carbon Dioxide 28.0, Anion Gap 6, BUN 46 H, Creatinine 3.23 H, Estim Creat Clear Calc 16.87, Est GFR (MDRD) Af Amer 19 L, Est GFR (MDRD) Non-Af 16 L, BUN/Creatinine Ratio 14.2, Glucose 622 H*, Calcium 8.8, Troponin I High Sens 6 01/06/22 07:04: Acetone Level NEGATIVE 01/06/22 07:04: Sodium Cancelled, Potassium Cancelled, Chloride Cancelled, Carbon Dioxide Cancelled, Anion Gap Cancelled, BUN Cancelled, Creatinine Cancel led, Estim Creat Clear Calc Cancelled, Est GFR (MDRD) Af Amer Cancelled, Est GFR (MDRD) Non-Af Cancelled, BUN/Creatinine Ratio Cancelled, Glucose Cancelled, Calcium Cancelled 01/06/22 07:18: Urine Color Yellow, Urine Clarity Sl. Cloudy, Urine pH 7.0, Ur Specific [place] 1.005, Urine Protein 100 H, Urine Glucose (UA) 1000 H, Urine Ketones Negative, Urine Occult Blood 150 H, Urine Nitrite Negative, Urine Bi lirubin Negative, Urine Urobilinogen Normal, Ur Leukocyte Esterase 500 H, Urine RBC 0 SEEN, Urine WBC >100 SEEN, Ur Squamous Epith Cells 0 SEEN, Urine Bacteria 1+, Urine Mucus 0 SEEN 01/06/22 07:22: POC Glucose > 500 H* 01/06/22 08:31: POC Glucose > 500 H* Radiology Impression Chest X-Ray 01/06/22 07:08 IMPRESSION: No acute cardiopulmonary process. Electronically Signed: Kianna Ellis MD at 8:08 EDT , Assessment & Plan Assessment/Plan (1) Diabetes mellitus with hyperosmolarity without hyperglycemic hyperosmolar nonketotic coma: (2) Complicated urinary tract infection: (3) Pseudohyponatremia: (4) Hyperkalemia: PLAN: Plan #Hyerglycemia in a known diabetic, likely hyeprosmolar nonketotic hypeglycemia * likely precipitated by complicated UTI * blood glucose was >600 * anion gap is not elevated; bicarb is 28 * admit to PCU * started on insulin drip. * check A1C * check BMP q4hrly * check osmolality * keep NPO for now #UTI * urinalysis showed evidence of UTI * urine and blood cultures ordered * on IV ceftriaxone * #Hyperkalemia * Potassium was 5.9, not hemolyzed. Given Kayexalate and potassium can 5.4. * Will give another dose of Kayexalate and monitor. * #ALMA on CKD stage IIIa * Creatinine was 3.23 on admission with a baseline of around 1.18. * Likely prerenal due to decreased intake. Hydrate with IV fluids and trend. * If creatinine does not trend down further we will check urine electrolytes and renal ultrasound. * #Hyponatremia: Sodium was 129 on admission this likely pseudohyponatremia due to hyperglycemia. Will monitor. #Hypertension * BP is at 180/5 today * will resume BP meds- clonidine and cardizem * IV hydralazine prn * #Chronic anemia * hb is 8.3. bsaeline Hb is ~ 8-9 * to follow up with PCP on outpatient basis * #GERD; on pantoprazole #?afbib: on cardizem. indication is not clear. DVT prophylaxis:lovenox, renally dosed CODE STATUS: Full code * Patient counseled extensively about different types of CODE STATUS including full code, DNR CCA and DNR CCA. Patient elects to be full code. * Total nyhp-gn-mpbd time 16 minutes. Charges/Coding Visit Charges Inpatient E&M: 45103 Init Hosp L3 Procedures Hospitalists Procedures: 15517 Advncd Care Plan 30 Min
[2022-01-06] MEDS: 0.9% Normal Saline 1,000 ML 150 ML IV (11:25)
[2022-01-06] MEDS: Sodium Polystyrene Sulfonate 15 GM/60 ML UDC 30 GM PO (11:28)
[2022-01-06 11:50] LABS: Anion Gap 8 (5-15); BUN 40 mg/dL (7-18); BUN/Creat Ratio 12.6 RATIO (10-20); Calcium,Total 8.6 mg/dL (8.5-10.1); Chloride 100 mmol/L (98-107); Creatinine, Serum 3.17 mg/dL (0.55-1.02); EST Glomerular Filtration Rate 16 mL/min (>60); Est Glom Filt Rate - Afr Amer 19 mL/min (>60); Estimated Creatinine Clearance 17.19 ml/min; Glucose 449 mg/dL (74-106); Potassium 5.4 mmol/L (3.5-5.1); Sodium Level 132 mmol/L (136-145)
[2022-01-06 12:50] LABS: Bedside Glucose 497 mg/dL (74-106)
[2022-01-06 12:50] LABS: Bedside Glucose 339 mg/dL (74-106)
[2022-01-06 12:50] LABS: Bedside Glucose 476 mg/dL (74-106)
[2022-01-06] MEDS: Pregabalin 50 MG Capsule PO ×2 (14:27→22:14)
[2022-01-06] MEDS: cloNIDine HCl 0.1 MG Tablet 0.3 MG PO ×2 (14:27→22:14)
[2022-01-06] MEDS: dilTIAZem CD 180 MG Capsule PO (14:27)
[2022-01-06 14:48] LABS: Anion Gap 8 (5-15); BUN 40 mg/dL (7-18); Calcium,Total 8.6 mg/dL (8.5-10.1); Chloride 103 mmol/L (98-107); Creatinine, Serum 2.85 mg/dL (0.55-1.02); EST Glomerular Filtration Rate 18 mL/min (>60); Est Glom Filt Rate - Afr Amer 22 mL/min (>60); Estimated Creatinine Clearance 19.13 ml/min; Glucose 274 mg/dL (74-106); Potassium 4.5 mmol/L (3.5-5.1); Sodium Level 138 mmol/L (136-145)
[2022-01-06] MEDS: traMADol 50 MG Tablet PO (15:20)
[2022-01-06] MEDS: hydrALAZINE 20 MG/ML Vial 10 MG IV (15:24)
[2022-01-06] MEDS: 0.9% Saline Lock 10 ML Syringe IV (15:25)
[2022-01-06 15:30] LABS: Bedside Glucose 206 mg/dL (74-106)
[2022-01-06 15:30] LABS: Bedside Glucose 305 mg/dL (74-106)
[2022-01-06] MEDS: Dext 5%-0.45% NS 1,000 ML 150 ML IV (15:30)
[2022-01-06] MEDS: Ondansetron 4 MG/2 ML Vial IV (16:08)
[2022-01-06 16:25] LABS: Bedside Glucose 230 mg/dL (74-106)
[2022-01-06] MEDS: Insulin Lispro 100 UNIT/ML INSULN.PEN SC ×2 (16:33→22:13)
[2022-01-06] MEDS: Insulin Glargine-YFGN 100 UNIT/ML Pen 22 UNIT SC (17:08)
[2022-01-06] MEDS: Acetaminophen 325 MG Tablet 650 MG PO (17:14)
[2022-01-06 18:20] LABS: Anion Gap 7 (5-15); BUN 40 mg/dL (7-18); BUN/Creat Ratio 14.9 RATIO (10-20); Calcium,Total 8.2 mg/dL (8.5-10.1); Chloride 102 mmol/L (98-107); Creatinine, Serum 2.69 mg/dL (0.55-1.02); EST Glomerular Filtration Rate 19 mL/min (>60); Est Glom Filt Rate - Afr Amer 23 mL/min (>60); Estimated Creatinine Clearance 20.26 ml/min; Glucose 280 mg/dL (74-106); Potassium 4.9 mmol/L (3.5-5.1); Sodium Level 136 mmol/L (136-145)
[2022-01-06 18:26] LABS: Bedside Glucose 286 mg/dL (74-106)
[2022-01-06 18:26] LABS: Bedside Glucose 244 mg/dL (74-106)
[2022-01-06 18:26] LABS: Bedside Glucose 286 mg/dL (74-106)
[2022-01-06] MEDS: Atorvastatin Calcium 40 MG Tablet PO (22:14)
[2022-01-06 23:04] LABS: Anion Gap 6 (5-15); BUN 40 mg/dL (7-18); Calcium,Total 8.1 mg/dL (8.5-10.1); Chloride 102 mmol/L (98-107); Creatinine, Serum 2.67 mg/dL (0.55-1.02); EST Glomerular Filtration Rate 19 mL/min (>60); Est Glom Filt Rate - Afr Amer 24 mL/min (>60); Estimated Creatinine Clearance 20.41 ml/min; Glucose 222 mg/dL (74-106); Potassium 4.6 mmol/L (3.5-5.1); Sodium Level 137 mmol/L (136-145)
[2022-01-07] VITALS (14 sets, daily range): BP systolic 121–174; BP diastolic 61–75; PULSE 63–81; RESP 16–18; TEMP 36.3–36.6; O2SAT 95–100
[2022-01-07 00:01] LABS: Bedside Glucose 221 mg/dL (74-106)
[2022-01-07 06:16] LABS: Absolute Lymphocyte Count 1.27 X10^3/uL (0.83-4.51); Basophil# 0.04 X10^3/uL; Basophil% 0.3 % (0-1); Eosinophil# 0.15 X10^3/uL; Eosinophils% 1.1 % (0-5); Hematocrit 26.7 % (37-47); Hemoglobin 8.6 g/dL (12.0-15.0); Lymphocyte # 1.27 X10^3/ul (0.83-4.51); Lymphocyte % 9.6 % (19-41); Mean Corp Hgb Conc 32.2 g/dL (32-36); Mean Corpuscular Hgb 27.7 pg (27.0-32.0); Mean Corpuscular Volume 85.9 fL (81-99); Mean Platelet Vol. 10.3 fl (6.2-12.0); Monocyte# 0.65 X10^3/uL; Monocyte% 4.9 % (0-10); NRBC Flagged by Analyzer 0 % (0-5); Neutrophil # 10.99 X10^3/uL (2.7-7.7); Platelet Count 341 K/mm3 (150-450); RBC Distribution Width SD 40.7 fl (35.1-43.9); Red Blood Count 3.11 M/mm3 (4.2-5.4); White Blood Count 13.3 K/mm3 (4.4-11.0)
[2022-01-07] MEDS: cloNIDine HCl 0.1 MG Tablet 0.3 MG PO ×3 (06:35→21:40)
[2022-01-07] MEDS: Pregabalin 50 MG Capsule PO ×3 (06:36→21:40)
[2022-01-07] MEDS: Insulin Lispro 100 UNIT/ML INSULN.PEN SC ×4 (06:36→21:41)
[2022-01-07 08:35] LABS: Bedside Glucose 157 mg/dL (74-106)
[2022-01-07] MEDS: Ceftriaxone 1 GM/50 ML BAG IV (09:16)
[2022-01-07] MEDS: FLU VACC QS2022-23(6MOS UP)/PF 60 MCG/0.5 ML SYRINGE IM (09:16)
[2022-01-07] MEDS: dilTIAZem CD 180 MG Capsule PO (09:19)
[2022-01-07] MEDS: Pantoprazole Sodium 40 MG Tablet PO (09:19)
[2022-01-07] MEDS: Sertraline 50 MG Tablet PO (09:19)
[2022-01-07] MEDS: Aspirin 81 MG TAB.CHEW PO (09:19)
[2022-01-07] MEDS: Enoxaparin 30 MG/0.3 ML Syringe SC (09:29)
[2022-01-07 09:41] LABS: Ferritin 243 ng/mL (8-252); Iron 18 ug/dL (50-170); Iron Binding Capacity,Total 205 ug/dL (250-450); PERCENT IRON SATURATION 8.8 % (15.0-55.0)
--- NOTE | 2022-01-07 11:33 | PN.HOSP_ITS ---
Subjective Subjective Patient seen and examined. She feels much better today. She denies any fever, chills, cough, chest pain, palpitations, dizziness, nausea, vomiting or diarrhea. REview of systems is otherwise negative. Objective Data Objective Data Vital Signs: Vital Signs Temp Pulse Resp BP Pulse Ox O2 Del Method 97.9 F 72 18 154/70 H 99 Room Air 01/07/22 09:15 01/07/22 09:15 01/07/22 09:15 01/07/22 09:15 01/07/22 09:15 01/07/22 09:15 Oxygen Delivery Method Room Air Weight: 168 lb 3.2 oz Body Mass Index (BMI) 28.0 Intake & Output: Intake and Output for Last 24 Hours 01/05/22 01/06/22 01/07/22 23:59 23:59 23:59 Intake Total 2043.16 / 2143.16 150 / 150 Output Total 1275 / 1475 350 / 350 Balance 768.16 / 668.16 -200 / -200 Medical Nutrition Assessment Dietitian: Malnutrition Criteria Met Start: 01/06/22 12:03 Freq: Status: Active Protocol: Document 01/06/22 12:03 SLA (Rec: 01/06/22 12:03 [facility] [id number]) Nutrition Malnutrition Evidence of Malnutrition Exists Yes Malnutrition (severe): Acute Illness/Injury Evidenced By Suboptimal Energy Intake ( Severe),Weight Loss (Severe) Clinical Problem Altered Nutrient-Related Laboratory Values Etiology related to diabetes and kidney dz Signs/Symptoms as evidenced by gluc 622, BUN 46, Cr 3.23 Status Active Problem Acute Disease or Injury Related Malnutrition Etiology related to not feeling well/ poor appetite Signs/Symptoms as evidenced by pt consuming < 50-74% of est nutritional needs and 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 Problem Recommendation Dietitian Recommendations/Changes When medically able, rec HAYLEY 1800 calorie controlled/ Consistent CHO, Cardiac/Sodium restricted diet w/ fluid restriction prn Lab / Micro Data Result Diagrams: 01/07/22 05:30 01/06/22 22:05 Labs: Laboratory Results - last 24 hr 01/06/22 10:09: POC Glucose 497 H* 01/06/22 10:45: Sodium 132 L, Potassium 5.4 H, Chloride 100, Carbon Dioxide 24.0, Anion Gap 8, BUN 40 H, Creatinine 3.17 H, Estim Creat Clear Calc 17.19, Est GFR (MDRD) Af Amer 19 L, Est GFR (MDRD) Non-Af 16 L, BUN/Creatinine Ratio 12.6, Glucose 449 H, Calcium 8.6 01/06/22 11:04: POC Glucose 476 H* 01/06/22 11:59: POC Glucose 339 H 01/06/22 13:02: POC Glucose 305 H 01/06/22 13:54: Sodium 138, Potassium 4.5, Chloride 103, Carbon Dioxide 27.0, Anion Gap 8, BUN 40 H, Creatinine 2.85 H, Estim Creat Clear Calc 19.13, Est GFR (MDRD) Af Amer 22 L, Est GFR (MDRD) Non-Af 18 L, BUN/Creatinine Ratio 14.0, Gl ucose 274 H, Calcium 8.6 01/06/22 14:16: POC Glucose 230 H 01/06/22 15:02: POC Glucose 206 H 01/06/22 16:13: POC Glucose 244 H 01/06/22 17:17: POC Glucose 286 H 01/06/22 17:55: Sodium 136, Potassium 4.9, Chloride 102, Carbon Dioxide 27.0, Anion Gap 7, BUN 40 H, Creatinine 2.69 H, Estim Creat Clear Calc 20.26, Est GFR (MDRD) Af Amer 23 L, Est GFR (MDRD) Non-Af 19 L, BUN/Creatinine Ratio 14.9, Glucose 280 H, Calcium 8.2 L 01/06/22 18:02: POC Glucose 286 H 01/06/22 22:05: Sodium 137, Potassium 4.6, Chloride 102, Carbon Dioxide 29.0, Anion Gap 6, BUN 40 H, Creatinine 2.67 H, Estim Creat Clear Calc 20.41, Est GFR (MDRD) Af Amer 24 L, Est GFR (MDRD) Non-Af 19 L, BUN/Creatinine Ratio 15.0, Glucose 222 H, Calcium 8.1 L 01/06/22 22:11: POC Glucose 221 H 01/07/22 05:30: WBC 13.3 H, RBC 3.11 L, Hgb 8.6 L, Hct 26.7 L, MCV 85.9, MCH 27.7, MCHC 32.2, RDW Std Deviation 40.7, RDW Coeff of Chris 13.0, Plt Count 341, MPV 10.3, Immature Gran % (Auto) 1.100 H, Neut % (Auto) 83.0 H, Lymph % (Auto) 9.6 L, [place] % (Auto) 4.9, Eos % (Auto) 1.1, Baso % (Auto) 0.3, Absolute Neuts (auto) 11.0 H, Absolute Lymphs (auto) 1.27, Nucleated RBC % 0 01/07/22 05:30: Iron 18 L, TIBC 205 L, Iron Saturation 8.8 L, Ferritin 243 01/07/22 06:33: POC Glucose 157 H Physical Exam Const alert, oriented x3 and no apparent distress General Appearance: cooperative HEENT normocephalic, head/scalp atraumatic, hearing grossly normal bilaterally and moist oral mucous membranes Head and Scalp: normocephalic Mouth: oral and palatal mucosa normal Eyes PERRL, EOMs intact bilaterally and conjunctivae normal Neck no lymphadenopathy Resp normal respiratory effort, no retractions, no use of accessory muscles and clear to auscultation bilaterally Cardio regular rate, regular rhythm, S1 normal heart sound, S2 normal heart sound and no murmurs GI normal to inspection, nondistended, normoactive bowel sounds, soft to palpation, non-tender and non-distended Extremity normal to inspection, full ROM and no clubbing, cyanosis or edema Neuro oriented x3, CN's II-XII intact bilaterally and moves all extremities Sensorium / Orientation: awake and alert Motor Exam: strength 5/5 throughout Psych Psych Narrative: flat affect Assessment & Plan Assessment/Plan (1) Diabetes mellitus with hyperosmolarity without hyperglycemic hyperosmolar nonketotic coma: (2) Complicated urinary tract infection: (3) Pseudohyponatremia: (4) Hyperkalemia: PLAN: Plan #Hyerglycemia in a known diabetic, likely hyeprosmolar nonketotic hypeglycemia * resolved * off insulin drip and now on her baseline insulin lantus 22 units qhs * ISS. Accuchecks ACHS * on 1800 calorie diet #UTI * urinalysis showed evidence of UTI * urine and blood cultures ordered * on IV ceftriaxone * #Hyperkalemia * resolved after being given kayexalate. Potassium is 4.6 today. * * #ALMA on CKD stage IIIa * Creatinine is trended down to about 2.67 today. * Continue gentle hydration with IV fluids and trend. * * #Hyponatremia: resolved. Sodium is 137 tday. #Hypertension * on clonidine and cardizem * IV hydralazine prn * #Chronic anemia * hb is 8.6 today. bsaeline Hb is ~ 8-9 * to follow up with PCP on outpatient basis * #GERD; on pantoprazole #?afib: on cardizem. indication is not clear. DVT prophylaxis:lovenox, renally dosed CODE STATUS: Full code * Charges/Coding Visit Charges Inpatient E&M: 71855 Subs Hosp L2
[2022-01-07 11:35] LABS: Bedside Glucose 332 mg/dL (74-106)
[2022-01-07] MEDS: 0.9% Saline Lock 10 ML Syringe IV ×2 (13:11→16:51)
[2022-01-07] MEDS: 0.9% Normal Saline 1,000 ML 125 ML IV ×2 (13:11→20:33)
[2022-01-07] MEDS: hydrALAZINE 20 MG/ML Vial 10 MG IV (16:51)
[2022-01-07 17:10] LABS: Bedside Glucose 320 mg/dL (74-106)
[2022-01-07] MEDS: Insulin Glargine-YFGN 100 UNIT/ML Pen 22 UNIT SC (21:41)
[2022-01-07] MEDS: Atorvastatin Calcium 40 MG Tablet PO (21:42)
[2022-01-07 22:31] LABS: Bedside Glucose 304 mg/dL (74-106)
[2022-01-08] VITALS (15 sets, daily range): BP systolic 135–173; BP diastolic 64–78; PULSE 70–97; RESP 14–18; TEMP 36.3–36.9; O2SAT 95–99
[2022-01-08] MEDS: Pregabalin 50 MG Capsule PO ×3 (05:26→21:19)
[2022-01-08] MEDS: cloNIDine HCl 0.1 MG Tablet 0.3 MG PO ×2 (05:26→15:33)
[2022-01-08 05:46] LABS: Absolute Lymphocyte Count 1.21 X10^3/uL (0.83-4.51); Basophil# 0.02 X10^3/uL; Basophil% 0.2 % (0-1); Eosinophil# 0.31 X10^3/uL; Eosinophils% 3.4 % (0-5); Hematocrit 24.6 % (37-47); Hemoglobin 7.9 g/dL (12.0-15.0); Lymphocyte # 1.21 X10^3/ul (0.83-4.51); Lymphocyte % 13.2 % (19-41); Mean Corp Hgb Conc 32.1 g/dL (32-36); Mean Corpuscular Volume 87.2 fL (81-99); Mean Platelet Vol. 10.2 fl (6.2-12.0); Monocyte# 0.46 X10^3/uL; NRBC Flagged by Analyzer 0 % (0-5); Neutrophil # 7.04 X10^3/uL (2.7-7.7); Platelet Count 309 K/mm3 (150-450); RBC Distribution Width CV 13.1 % (11.6-14.6); RBC Distribution Width SD 42.1 fl (35.1-43.9); Red Blood Count 2.82 M/mm3 (4.2-5.4); White Blood Count 9.2 K/mm3 (4.4-11.0)
[2022-01-08] MEDS: Insulin Lispro 100 UNIT/ML INSULN.PEN SC ×4 (06:11→21:20)
[2022-01-08 06:40] LABS: Bedside Glucose 208 mg/dL (74-106)
[2022-01-08] MEDS: dilTIAZem CD 180 MG Capsule PO (09:05)
[2022-01-08] MEDS: Enoxaparin 30 MG/0.3 ML Syringe SC (09:05)
[2022-01-08] MEDS: Aspirin 81 MG TAB.CHEW PO (09:05)
[2022-01-08] MEDS: Sertraline 50 MG Tablet PO (09:06)
[2022-01-08] MEDS: Pantoprazole Sodium 40 MG Tablet PO (09:06)
[2022-01-08] MEDS: Ceftriaxone 1 GM/50 ML BAG IV (09:06)
[2022-01-08] MEDS: 0.9% Saline Lock 10 ML Syringe IV ×3 (09:08→23:54)
[2022-01-08 10:56] LABS: ALB/GLOB Ratio 0.4 RATIO (0.9-2.4); AST(SGOT) 11 U/L (15-37); Alanine Aminotransfer ALT/SGPT 12 U/L (13-56); Albumin, Serum 1.5 g/dL (3.2-5.0); Alkaline Phosphatase 132 U/L (45-117); Anion Gap 6 (5-15); BUN 41 mg/dL (7-18); BUN/Creat Ratio 15.2 RATIO (10-20); Calcium,Total 7.9 mg/dL (8.5-10.1); Chloride 102 mmol/L (98-107); Creatinine, Serum 2.69 mg/dL (0.55-1.02); EST Glomerular Filtration Rate 19 mL/min (>60); Est Glom Filt Rate - Afr Amer 23 mL/min (>60); Estimated Creatinine Clearance 20.26 ml/min; Globulin 3.5 g/dL (2.2-4.2); Glucose 217 mg/dL (74-106); Potassium 4.1 mmol/L (3.5-5.1); Sodium Level 135 mmol/L (136-145)
--- NOTE | 2022-01-08 11:35 | CASEMGMT ---
RN SHIRA Face to Face with patient for initial transition planning/care coordination assessment. RN CM introduced self and role at [facility]. Patient lying in bed, alert and oriented. Patient willing to participate in assessment and is able to answer all questions appropriately. Care providers, pharmacy, and demographics verified. Patient wishes to discharge home with [facility] for therapy. Patient declined list of C agencies and states her preferred provider for HHC is [facility]. CM to send referral for HHC setup. Patient states she has no further needs or concerns at this time. CM to follow for discharge planning needs that may arise. PCP: Zach Specialists: Keo marketing information analyst; Ryan Jc Preferred Pharmacy: [email or web address] Insurance: Amanda Clayton Prescription Benefit: yes Living Will/HPOA: none LNOK: significant other Living Arrangements: Patient lives with significant other in a 1 story duplex with 2 steps and railing to enter. Patient states she is independent at home. Transportation: [facility] van, insurance transport DME/HHC: Patient states she has shower chair, cane, walker, rollator, wheelchair, medical alert, grab bars, glucometer with supplies, insulin with supplies at home. Patient states she has been to [facility] in the past. Patient has [facility] in the past and they are her preferred C agency. Patient requesting [facility] for PT/OT at discharge. Patient is active with Waiver program. Disposition Plan: Patient to discharge home with [facility], family support, and follow-up plans in place. Jennifer PAGAN, RN, CM
[2022-01-08 12:00] LABS: Bedside Glucose 161 mg/dL (74-106)
[2022-01-08] MEDS: levoFLOXacin IV 500 MG/100 ML BAG 100 MG IV (12:20)
[2022-01-08 13:04] LABS: Hemoglobin A1c 13.9 % (3.8-5.6)
--- NOTE | 2022-01-08 15:19 | PN.HOSP_ITS ---
Subjective Subjective Follow-up on acute complicated UTI/debility: Patient was seen and examined. She denies any dysuria or frequency. She stated that she feels well. She stated that she lives with her boyfriend, she is on disability. She usually ambulates with a walker. Objective Data Objective Data Vital Signs: Vital Signs Temp Pulse Resp BP Pulse Ox O2 Del Method 98.4 F 76 14 135/68 H 95 Room Air 01/08/22 08:52 01/08/22 15:08 01/08/22 08:52 01/08/22 08:52 01/08/22 14:47 01/08/22 09:42 Oxygen Delivery Method Room Air Weight: 76.294 kg Body Mass Index (BMI) 28.0 Intake & Output: Intake and Output for Last 24 Hours 01/06/22 01/07/22 01/08/22 23:59 23:59 23:59 Intake Total 2043.16 / 2143.16 1870.83 / 1870.83 1890 / 1890 Output Total 1275 / 1475 850 / 850 550 / 550 Balance 768.16 / 668.16 1020.83 / 1020.83 1340 / 1340 Medical Nutrition Assessment Dietitian: Malnutrition Criteria Met Start: 01/06/22 12:03 Freq: Status: Active Protocol: Document 01/06/22 12:03 TIMOTHY (Rec: 01/06/22 12:03 [facility] [id number]) Nutrition Malnutrition Evidence of Malnutrition Exists Yes Malnutrition (severe): Acute Illness/Injury Evidenced By Suboptimal Energy Intake ( Severe),Weight Loss (Severe) Clinical Problem Altered Nutrient-Related Laboratory Values Etiology related to diabetes and kidney dz Signs/Symptoms as evidenced by gluc 622, BUN 46, Cr 3.23 Status Active Problem Acute Disease or Injury Related Malnutrition Etiology related to not feeling well/ poor appetite Signs/Symptoms as evidenced by pt consuming < 50-74% of est nutritional needs and 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 Problem Recommendation Dietitian Recommendations/Changes When medically able, rec HAYLEY 1800 calorie controlled/ Consistent CHO, Cardiac/Sodium restricted diet w/ fluid restriction prn Lab / Micro Data Result Diagrams: 01/08/22 05:19 01/08/22 05:19 Labs: Laboratory Results - last 24 hr 01/07/22 16:46: POC Glucose 320 H 01/07/22 21:39: POC Glucose 304 H 01/08/22 05:19: WBC 9.2, RBC 2.82 L, Hgb 7.9 L, Hct 24.6 L, MCV 87.2, MCH 28.0, MCHC 32.1, RDW Std Deviation 42.1, RDW Coeff of Chris 13.1, Plt Count 309, MPV 10.2, Immature Gran % (Auto) 1.200 H, Neut % (Auto) 77.0 H, Lymph % (Auto) 13.2 L, [place] % (Auto) 5.0, Eos % (Auto) 3.4, Baso % (Auto) 0.2, Absolute Neuts (auto) 7.0, Absolute Lymphs (auto) 1.21, Nucleated RBC % 0 01/08/22 05:19: Sodium 135 L, Potassium 4.1, Chloride 102, Carbon Dioxide 27.0, Anion Gap 6, BUN 41 H, Creatinine 2.69 H, Estim Creat Clear Calc 20.26, Est GFR (MDRD) Af Amer 23 L, Est GFR (MDRD) Non-Af 19 L, BUN/Creatinine Ratio 15.2, Glucose 217 H, Calcium 7.9 L, Total Bilirubin 0.10 L, AST 11 L, ALT 12 L, Alkaline Phosphatase 132 H, Total Protein 5.0 L, Albumin 1.5 L, Globulin 3.5, Albumin/Globulin Ratio 0.4 L 01/08/22 05:19: Hemoglobin A1c 13.9 H 01/08/22 06:10: POC Glucose 208 H 01/08/22 11:18: POC Glucose 161 H Micro: Microbiology 01/06/22 10:48 Blood Culture (Wb) - Anticubital Right Blood Culture - Preliminary No growth in 48 hours. 01/06/22 11:08 Blood Culture (Wb) - Right Forearm Blood Culture - Preliminary No growth in 48 hours. 01/06/22 Unknown Urine Catheter - Howard Urine Culture - Final Enterobacter cloacae complex Physical Exam Narrative Physical exam: General: Alert, Oriented x3, Cooperative, No apparent distress HEENT: Atraumatic Oral: Moist Mucosa Neck: Supple Lungs: Clear to auscultation Cardiovascular: HS I+II, regular, no murmurs Abdomen: Bowel Sounds Present, Soft, Non Tender Extremities: No edema Skin: No rashes, No breakdown Neurological: Grossly intact Psych/Mental Status: Appropriate Assessment & Plan Assessment/Plan (1) Complicated urinary tract infection: PLAN: Plan 1. Hyperglycemia, probable HHS, improved on insulin drip Off insulin drip now, on home insulin regimen HbA1c is 13.9 Increase Lantus to 25 units nightly, continue with Premeal insulin 10 units 3 times daily as well as insulin sliding scale 2. Acute Enterobacter cloacae UTI, will switch from ceftriaxone to Levaquin 3. Hyperkalemia, resolved, will continue to treat 4. ALMA on CKD stage IIIa, likely prerenal, admitting creatinine 3.23, creatinine is 2.69 We will continue to trend 5. Hyponatremia, sodium is now 135, continue to trend 6. Hypertension, controlled, continue on clonidine, Cardizem 7. Anemia, chronic, Hb is 7.9 from 8.6 We will check iron stores, retic count 8. GERD, continue PPI 9. DVT prophylaxis - Lovenox subcu Charges/Coding Visit Charges Inpatient E&M: 67413 Subs Hosp L2
--- NOTE | 2022-01-08 15:26 | WOUNDNOTE ---
wound photo: left lower leg
--- NOTE | 2022-01-08 15:32 | WOUNDNOTE ---
wound photo: left lower leg
--- NOTE | 2022-01-08 15:33 | WOUNDNOTE ---
wound photo: left heel
[2022-01-08 16:01] LABS: Platelet Count 331 K/mm3 (150-450); RET-HE 27.3 pg (30-35); Reticulocyte Count 2.46 % (0.5-1.5)
[2022-01-08] MEDS: 0.9% Normal Saline 1,000 ML 75 ML IV (17:14)
--- NOTE | 2022-01-08 17:41 | NURSING ---
Charting reviewed with Niraj Ramos RN
[2022-01-08] MEDS: hydrALAZINE 20 MG/ML Vial 10 MG IV (18:04)
[2022-01-08 18:15] LABS: Bedside Glucose 254 mg/dL (74-106)
[2022-01-08] MEDS: Ondansetron ODT 4 MG Tablet PO (20:22)
[2022-01-08 20:29] LABS: Ferritin 202 ng/mL (8-252); Iron 29 ug/dL (50-170); Iron Binding Capacity,Total 141 ug/dL (250-450); PERCENT IRON SATURATION 20.6 % (15.0-55.0)
[2022-01-08] MEDS: Atorvastatin Calcium 40 MG Tablet PO (21:19)
[2022-01-08] MEDS: Insulin Glargine-YFGN 100 UNIT/ML Pen 25 UNIT SC (21:20)
[2022-01-08 22:10] LABS: Bedside Glucose 214 mg/dL (74-106)
[2022-01-08] MEDS: Ondansetron 4 MG/2 ML Vial IV (23:54)
[2022-01-09] VITALS (14 sets, daily range): BP systolic 119–158; BP diastolic 55–74; PULSE 74–96; RESP 16–18; TEMP 36.6–37.2; O2SAT 94–98
[2022-01-09] MEDS: 0.9% Saline Lock 10 ML Syringe IV ×2 (02:22→21:04)
[2022-01-09] MEDS: proCHLORPERazine 10 MG/2 ML Vial 5 MG IV ×2 (02:22→08:38)
[2022-01-09 06:34] LABS: Absolute Lymphocyte Count 0.71 X10^3/uL (0.83-4.51); Absolute Neutrophil Count 7.6 X10^3/uL (2.0-7.7); Basophil# 0.05 X10^3/uL; Basophil% 0.6 % (0-1); Eosinophil# 0.05 X10^3/uL; Eosinophils% 0.6 % (0-5); Hematocrit 27.6 % (37-47); Hemoglobin 8.5 g/dL (12.0-15.0); Lymphocyte # 0.71 X10^3/ul (0.83-4.51); Lymphocyte % 8.2 % (19-41); Mean Corp Hgb Conc 30.8 g/dL (32-36); Mean Corpuscular Volume 90.8 fL (81-99); Mean Platelet Vol. 10.5 fl (6.2-12.0); Monocyte# 0.21 X10^3/uL; Monocyte% 2.4 % (0-10); NRBC Flagged by Analyzer 0 % (0-5); Neutrophil # 7.55 X10^3/uL (2.7-7.7); Neutrophil % 86.7 % (47-70); Platelet Count 313 K/mm3 (150-450); RBC Distribution Width CV 13.2 % (11.6-14.6); RBC Distribution Width SD 43.9 fl (35.1-43.9); Red Blood Count 3.04 M/mm3 (4.2-5.4); White Blood Count 8.7 K/mm3 (4.4-11.0)
[2022-01-09] MEDS: Insulin Lispro 100 UNIT/ML INSULN.PEN SC ×4 (06:36→21:05)
[2022-01-09 07:04] LABS: ALB/GLOB Ratio 0.4 RATIO (0.9-2.4); AST(SGOT) 13 U/L (15-37); Alanine Aminotransfer ALT/SGPT 11 U/L (13-56); Albumin, Serum 1.6 g/dL (3.2-5.0); Alkaline Phosphatase 135 U/L (45-117); Anion Gap 14 (5-15); BUN 40 mg/dL (7-18); BUN/Creat Ratio 15.3 RATIO (10-20); Chloride 99 mmol/L (98-107); Creatinine, Serum 2.61 mg/dL (0.55-1.02); EST Glomerular Filtration Rate 20 mL/min (>60); Est Glom Filt Rate - Afr Amer 24 mL/min (>60); Estimated Creatinine Clearance 20.88 ml/min; Globulin 3.8 g/dL (2.2-4.2); Glucose 375 mg/dL (74-106); Potassium 5.5 mmol/L (3.5-5.1); Protein, Total 5.4 g/dL (6.4-8.2); Sodium Level 132 mmol/L (136-145)
[2022-01-09] MEDS: Ondansetron ODT 4 MG Tablet PO (07:05)
[2022-01-09 07:10] LABS: Bedside Glucose 353 mg/dL (74-106)
--- NOTE | 2022-01-09 07:36 | US_ITS ---
STUDY: RENAL ULTRASOUND - COMPLETE REASON FOR EXAM: Female, 61 years old. ALMA TECHNIQUE: Ultrasound evaluation of the kidneys was performed with real-time and static roe-scale imaging. COMPARISON: None. FINDINGS: RIGHT KIDNEY: Normal location of the right kidney, which is normal in size. The right kidney measures 10.1 cm x 5.1 cm x 4.7 cm. There is a normal cortex of the right kidney. The renal cortex measures 1.2 cm. There is no right renal mass or cyst. There are no right renal calculi. There is no right hydronephrosis. DISTAL RIGHT URETER: There is non-visualization of the distal right ureter. There is no demonstrated right ureterovesical junction calculus. There is no demonstrated right ureteral jet. LEFT KIDNEY: Normal location of the left kidney, which is normal in size. The left kidney measures 12.4 cm x 5.2 cm x 5.2 cm. There is a normal cortex of the left kidney. The renal cortex measures 1.4 cm. There is no left renal mass or cyst. There are no left renal calculi. There is no left hydronephrosis. DISTAL LEFT URETER: There is non-visualization of the distal left ureter. There is no demonstrated left ureterovesical junction calculus. There is no demonstrated left ureteral jet. BLADDER: A SANDOVAL catheter is seen within the empty urinary bladder. US/Kidney and Bladder IMPRESSION: Normal ultrasound of the kidneys. Electronically Signed: Angel Manley MD at 13:56 EDT ,
[2022-01-09] MEDS: Sertraline 50 MG Tablet PO (08:18)
[2022-01-09] MEDS: Enoxaparin 30 MG/0.3 ML Syringe SC (08:18)
[2022-01-09] MEDS: Pantoprazole Sodium 40 MG Tablet PO (08:18)
[2022-01-09] MEDS: dilTIAZem CD 180 MG Capsule PO (08:19)
[2022-01-09] MEDS: Aspirin 81 MG TAB.CHEW PO (08:19)
[2022-01-09] MEDS: levoFLOXacin IV 250 MG/50 ML BAG 50 MG IV (10:16)
--- NOTE | 2022-01-09 11:01 | PCM.PN.HOSP ---
Subjective Subjective Follow-up on acute complicated UTI/debility: Patient was seen and examined. She feels improved. Her renal function appears to have worsened. She denies chest pain or dizziness or palpitations. Objective Data Objective Data Vital Signs: Vital Signs Temp Pulse Resp BP Pulse Ox O2 Del Method 98.9 F 84 16 119/62 94 Room Air 01/09/22 10:32 01/09/22 10:32 01/09/22 10:32 01/09/22 10:32 01/09/22 10:32 01/09/22 10:32 Oxygen Delivery Method Room Air Weight: 76.294 kg Body Mass Index (BMI) 28.0 Intake & Output: Intake and Output for Last 24 Hours 01/07/22 01/08/22 01/09/22 23:59 23:59 23:59 Intake Total 1870.83 / 1870.83 2130 / 2130 1000 / 1000 Output Total 850 / 850 800 / 1400 1000 / 1000 Balance 1020.83 / 1020.83 1330 / 730 0 / 0 Medical Nutrition Assessment Dietitian: Malnutrition Criteria Met Start: 01/06/22 12:03 Freq: Status: Active Protocol: Document 01/06/22 12:03 [facility] (Rec: 01/06/22 12:03 [facility] [id number]) Nutrition Malnutrition Evidence of Malnutrition Exists Yes Malnutrition (severe): Acute Illness/Injury Evidenced By Suboptimal Energy Intake ( Severe),Weight Loss (Severe) Clinical Problem Altered Nutrient-Related Laboratory Values Etiology related to diabetes and kidney dz Signs/Symptoms as evidenced by gluc 622, BUN 46, Cr 3.23 Status Active Problem Acute Disease or Injury Related Malnutrition Etiology related to not feeling well/ poor appetite Signs/Symptoms as evidenced by pt consuming < 50-74% of est nutritional needs and 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 Problem Recommendation Dietitian Recommendations/Changes When medically able, rec HAYLEY 1800 calorie controlled/ Consistent CHO, Cardiac/Sodium restricted diet w/ fluid restriction prn Lab / Micro Data Result Diagrams: 01/09/22 06:05 01/09/22 12:10 Labs: Laboratory Results - last 24 hr 01/08/22 05:19: Hemoglobin A1c 13.9 H 01/08/22 05:19: Retic Count 2.46 H, Immature Retic Fraction 16.80 H, Retic Hgb Equivalent 27.3 L 01/08/22 05:19: Iron 29 L, TIBC 141 L, Iron Saturation 20.6, Ferritin 202 01/08/22 11:18: POC Glucose 161 H 01/08/22 17:18: POC Glucose 254 H 01/08/22 21:18: POC Glucose 214 H 01/09/22 06:05: WBC 8.7, RBC 3.04 L, Hgb 8.5 L, Hct 27.6 L, MCV 90.8, MCH 28.0, MCHC 30.8 L, RDW Std Deviation 43.9, RDW Coeff of Chris 13.2, Plt Count 313, MPV 10.5, Immature Gran % (Auto) 1.500 H, Neut % (Auto) 86.7 H, Lymph % (Auto) 8.2 L, [place] % (Auto) 2.4, Eos % (Auto) 0.6, Baso % (Auto) 0.6, Absolute Neuts (auto) 7.6, Absolute Lymphs (auto) 0.71 L, Nucleated RBC % 0 01/09/22 06:05: Sodium 132 L, Potassium 5.5 H, Chloride 99, Carbon Dioxide 19.0 L, Anion Gap 14, BUN 40 H, Creatinine 2.61 H, Estim Creat Clear Calc 20.88, Est GFR (MDRD) Af Amer 24 L, Est GFR (MDRD) Non-Af 20 L, BUN/Creatinine Ratio 15.3, Glucose 375 H, Calcium 8.0 L, Total Bilirubin 0.30, AST 13 L, ALT 11 L, Alkaline Phosphatase 135 H, Total Protein 5.4 L, Albumin 1.6 L, Globulin 3.8, Albumin/Globulin Ratio 0.4 L 01/09/22 06:35: POC Glucose 353 H Micro: Microbiology 01/06/22 10:48 Blood Culture (Wb) - Anticubital Right Blood Culture - Preliminary No growth in 48 hours. 01/06/22 11:08 Blood Culture (Wb) - Right Forearm Blood Culture - Preliminary No growth in 48 hours. 01/06/22 Unknown Urine Catheter - Howard Urine Culture - Final Enterobacter cloacae complex Physical Exam Narrative Physical exam: General: Alert, Oriented x3, Cooperative, appears chronically unwell HEENT: Atraumatic Oral: Moist Mucosa Neck: Supple Lungs: Clear to auscultation Cardiovascular: HS I+II, regular, no murmurs Abdomen: Bowel Sounds Present, Soft, Non Tender Extremities: No edema Skin: No rashes, No breakdown Neurological: Grossly intact Psych/Mental Status: Appropriate Assessment & Plan Assessment/Plan (1) Complicated urinary tract infection: PLAN: Plan 1. Acute HHS, resolved 2. Type 2 DM, blood sugars uncontrolled, HbA1c is 13.9 Increase Lantus to30 units QHS, continue with Premeal insulin 10 units 3 times daily as well as insulin sliding scale 3. Acute Enterobacter cloacae UTI, continue on Levaquin 4. Hyperkalemia, resolved, will continue to treat 5. ALMA on CKD stage IIIa, likely prerenal, admitting creatinine 3.23, creatinine is 2.77 Nephrology consulted, check urine sodium, urine creatinine Trend of labs 6. Hyponatremia, sodium is now 133, continue to trend 7. Hypertension, controlled, continue on clonidine, Cardizem 8. Anemia, chronic, iron deficient, Hb is 8.5 Will continue on oral iron 9. GERD, continue PPI 10. Severe protein calorie malnutrition, circus rider consulted, follow-up on recommendations 11. DVT prophylaxis - Lovenox subcu Charges/Coding Visit Charges Inpatient E&M: 51397 Subs Hosp L2
[2022-01-09] MEDS: traMADol 50 MG Tablet PO (11:33)
[2022-01-09 11:35] LABS: Bedside Glucose 243 mg/dL (74-106)
[2022-01-09 12:09] LABS: Urine Sodium 54 mmol/L (Not Establ.)
--- NOTE | 2022-01-09 12:20 | CON.PCM.RE_ITS ---
Assessment & Plan Assessment/Plan (1) Acute kidney injury: (2) CKD (chronic kidney disease) stage 3, GFR 30-59 ml/min: (3) UTI (urinary tract infection): (4) Hyperkalemia: (5) Hyperglycemia: PLAN: Plan Patient was admitted to the hospital after presenting with complaints of feeling unwell with nausea, found to have ALMA, hyperkalemia, UTI, elevated glucose, she was admitted and initially started on insulin drip, now off insulin drip. We were consulted for acute kidney injury. Patient's creatinine was 3.23 mg/dL on admission and today is 2.69 mg/dL. She was initially on IV fluids, now off IV fluids at this time. In reviewing past creatinine trends since 2019 to January 2021 baseline creatinine ranging around 1.2 mg/dL. ALMA is likely in setting of volume depletion with hyperglycemia and UTI. Reviewed home medication list, no recent DANIEL, ARB's or diuretics. Per patient report no recent NSAIDs. Blood pressure was also elevated in the emergency room with systolic blood pressures in the 180s. BPs have improved, on clonidine and diltiazem. At this time there is no acute indication for renal replacement therapy. Patient is nonoliguric. 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 Her potassium was 5.5 this morning repeat potassium is pending. Will change diet to low potassium diet. Patient reports this morning she has been having some nausea and not much of an appetite therefore we will restart back on gentle IV fluids. Quite possibly patient has CKD stage III with last known baseline of 1.2 mg/dL as of January 2021 however she may have had some progression of CKD. She may have diabetic kidney disease. Her last hemoglobin A1c was 13.9% on 01/08/2022. We will check urine protein creatinine ratio. Renal ultrasound was done, report pending. Blood cultures so far no growth, urine culture Enterobacter cloacae, she is on IV antibiotics, Levaquin. Discussed with Dr. Centeno. Further orders forthcoming as hospitalization evolves. Thank for allowing us to participate in the care of Ms. Sprague. HPI Consult Data Date of Consult: 01/09/22 HPI Narrative HPI Narrative: LAYNE SPRAGUE, is a 61 F who was brought to the emergency room via squad with complaint of feeling unwell, frequent urination, decreased appetite. Patient was found to have elevated blood sugar of 622, potassium 5.9, creatinine 3.23 mg/dL in the emergency room. She was admitted for management of hyperglycemia, UTI and hyperkalemia. We were consulted for acute kidney injury. Patient reports she has not been evaluated by a blender/braze applicator in the past. She denies NSAID use. Patient reports that she has been feeling unwell for a few days with nausea and decreased appetite. Also noted that she was urinating more often than normal. Denies dysuria or hematuria. Denies any new medications. Denies abdominal pain. Denies recent rash. [facility] Medical History Cardiology follow-up encounter Chronic pain syndrome Closed intertrochanteric fracture of left hip Diabetes Dietary restriction Essential hypertension Excessive bleeding Fall Gastric reflux High cholesterol History of echocardiogram History of edema History of orthostatic hypotension History of stress test HLD (hyperlipidemia) HTN (hypertension) Hx of orthostatic hypotension Injury of head and neck Insulin dependent diabetes mellitus Low iron Malnutrition Migraine headache Migraine without aura Non-smoker Post-concussion syndrome Syncope Type II diabetes mellitus Vertigo Vomiting Wears glasses Home Medications diltiazem HCl 180 mg capsule,extended release 24 hr 180 mg PO DAILY HEART 12/17/18 [History Last Taken 02/13/21] ondansetron 4 mg disintegrating tablet 4 mg PO Q6H PRN Nausea 12/17/18 [History Last Taken 1 Week Ago ~12/08/19] aspirin 81 mg chewable tablet 81 mg PO DAILY@0800 HEALTH MAINTENANCE 12/15/19 [History Last Taken 02/12/21] atorvastatin 40 mg tablet 40 mg PO QHS CHOLESTEROL 12/15/19 [History Last Taken 02/12/21] pantoprazole 40 mg tablet,delayed release 40 mg PO DAILY GERD 12/15/19 [History Last Taken 02/13/21] acetaminophen 325 mg tablet (Tylenol) 650 mg PO Q6H PRN PRN Pain Score 1-3 /Temp>100.7 #0 tabs 02/17/21 [Rx Last Taken Unknown] cyclobenzaprine 5 mg tablet 5 mg PO TID PRN PRN spasm #0 tabs 02/17/21 [Rx Last Taken Unknown] polyethylene glycol 3350 17 gram oral powder packet 17 g PO DAILY PRN PRN Constipation #1 ea 02/17/21 [Rx Last Taken Unknown] clonidine HCl 0.3 mg tablet 0.3 mg PO TID bp 01/06/22 [History Last Taken Unknown] insulin glargine 100 unit/mL (3 mL) subcutaneous pen (Lantus Solostar U-100 Insulin) 22 unit subcut QHS diabetes 01/06/22 [History Last Taken Unknown] insulin lispro 100 unit/mL subcutaneous pen (Humalog KwikPen (U-100) Insulin) 10 unit subcut TIDCM diabetes 01/06/22 [History Last Taken Unknown] pregabalin 75 mg capsule 50 mg PO TID neuropathy 01/06/22 [History Last Taken Unknown] sertraline 50 mg tablet 50 mg PO DAILY antidepressant 01/06/22 [History Last Taken Unknown] tramadol 50 mg tablet 50 mg PO BID PRN Pain 01/06/22 [History Last Taken Unknown] Allergy/AdvReac Type Severity Reaction Status Date / Time metformin AdvReac Diarrhea Verified 01/06/22 06:57 Family History Mother Hypertension Father Cancer lymphoma, leukemia Emphysema of lung Grandmother Diabetes Surgical History History of cholecystectomy History of esophagogastroduodenoscopy (EGD) History of mandibular surgery Hx of colonoscopy Social History (Updated 01/06/22 @ 07:[address] Claudio Jj MD) household members: significant other Smoking Status: Never smoker alcohol intake: never substance use type: does not use ROS ROS Narrative As past medical history and HPI Physical Exam Narrative Const: Alert and oriented x3, no apparent distress Cardio: S1, S2, RRR Respiratory: Lung sounds clear anteriorly and posteriorly GI: Abdomen soft, nontender, positive bowel sounds : Indwelling Howard catheter with clear urine in bag Extremities: No pitting edema noted to bilateral thighs, legs or feet. Daniel wrap intact to left leg Medical Records Data Medical Nutrition Assessment Dietitian: Malnutrition Criteria Met Start: 01/06/22 12:03 Freq: Status: Active Protocol: Document 01/06/22 12:03 TIMOTHY (Rec: 01/06/22 12:03 [facility] [id number]) Nutrition Malnutrition Evidence of Malnutrition Exists Yes Malnutrition (severe): Acute Illness/Injury Evidenced By Suboptimal Energy Intake ( Severe),Weight Loss (Severe) Clinical Problem Altered Nutrient-Related Laboratory Values Etiology related to diabetes and kidney dz Signs/Symptoms as evidenced by gluc 622, BUN 46, Cr 3.23 Status Active Problem Acute Disease or Injury Related Malnutrition Etiology related to not feeling well/ poor appetite Signs/Symptoms as evidenced by pt consuming < 50-74% of est nutritional needs and 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 Problem Recommendation Dietitian Recommendations/Changes When medically able, rec HAYLEY 1800 calorie controlled/ Consistent CHO, Cardiac/Sodium restricted diet w/ fluid restriction prn Lab / Micro Data Result Diagrams: 01/09/22 06:05 01/09/22 06:05 Labs: Laboratory Results - last 24 hr 01/08/22 05:19: Hemoglobin A1c 13.9 H 01/08/22 05:19: Retic Count 2.46 H, Immature Retic Fraction 16.80 H, Retic Hgb Equivalent 27.3 L 01/08/22 05:19: Iron 29 L, TIBC 141 L, Iron Saturation 20.6, Ferritin 202 01/08/22 17:18: POC Glucose 254 H 01/08/22 21:18: POC Glucose 214 H 01/09/22 06:05: WBC 8.7, RBC 3.04 L, Hgb 8.5 L, Hct 27.6 L, MCV 90.8, MCH 28.0, MCHC 30.8 L, RDW Std Deviation 43.9, RDW Coeff of Chris 13.2, Plt Count 313, MPV 10.5, Immature Gran % (Auto) 1.500 H, Neut % (Auto) 86.7 H, Lymph % (Auto) 8.2 L , Stewart % (Auto) 2.4, Eos % (Auto) 0.6, Baso % (Auto) 0.6, Absolute Neuts (auto) 7.6, Absolute Lymphs (auto) 0.71 L, Nucleated RBC % 0 01/09/22 06:05: Sodium 132 L, Potassium 5.5 H, Chloride 99, Carbon Dioxide 19.0 L, Anion Gap 14, BUN 40 H, Creatinine 2.61 H, Estim Creat Clear Calc 20.88, Est GFR (MDRD) Af Amer 24 L, Est GFR (MDRD) Non-Af 20 L, BUN/Creatinine Ratio 15.3, Glucose 375 H, Calcium 8.0 L, Total Bilirubin 0.30, AST 13 L, ALT 11 L, Alkaline Phosphatase 135 H, Total Protein 5.4 L, Albumin 1.6 L, Globulin 3.8, Albumin/Globulin Ratio 0.4 L 01/09/22 06:35: POC Glucose 353 H 01/09/22 11:10: POC Glucose 243 H 01/09/22 11:30: Ur Random Sodium 54, Urine Creatinine 62.20 Micro: Microbiology 01/06/22 10:48 Blood Culture (Wb) - Anticubital Right Blood Culture - Preliminary No growth in 48 hours. 01/06/22 11:08 Blood Culture (Wb) - Right Forearm Blood Culture - Preliminary No growth in 48 hours. 01/06/22 Unknown Urine Catheter - Howard Urine Culture - Final Enterobacter cloacae complex
[2022-01-09 12:56] LABS: Anion Gap 14 (5-15); BUN 42 mg/dL (7-18); BUN/Creat Ratio 15.2 RATIO (10-20); Calcium,Total 8.2 mg/dL (8.5-10.1); Chloride 99 mmol/L (98-107); Creatinine, Serum 2.77 mg/dL (0.55-1.02); EST Glomerular Filtration Rate 19 mL/min (>60); Est Glom Filt Rate - Afr Amer 23 mL/min (>60); Estimated Creatinine Clearance 19.68 ml/min; Glucose 255 mg/dL (74-106); Potassium 4.4 mmol/L (3.5-5.1); Sodium Level 133 mmol/L (136-145)
[2022-01-09] MEDS: cloNIDine HCl 0.1 MG Tablet 0.3 MG PO ×2 (13:15→21:03)
[2022-01-09] MEDS: 0.9% Normal Saline 1,000 ML 75 ML IV (13:15)
[2022-01-09] MEDS: Pregabalin 50 MG Capsule PO ×2 (13:19→21:09)
[2022-01-09] MEDS: Insulin Lispro 100 UNIT/ML INSULN.PEN 10 UNIT SC (17:03)
[2022-01-09 17:25] LABS: Bedside Glucose 393 mg/dL (74-106)
[2022-01-09 20:55] LABS: Bedside Glucose 279 mg/dL (74-106)
[2022-01-09] MEDS: Atorvastatin Calcium 40 MG Tablet PO (21:03)
[2022-01-09] MEDS: Insulin Glargine-YFGN 100 UNIT/ML Pen 30 UNIT SC (21:04)
[2022-01-10] MEDS: 0.9% Normal Saline 1,000 ML 75 ML IV (00:51)
[2022-01-10 02:48] VITALS: BP 132/63; PULSE 73; RESP 17; TEMP 36.8; O2SAT 97
[2022-01-10 03:01] VITALS: PULSE 68
[2022-01-10 05:45] VITALS: BP 153/68; PULSE 72; RESP 17; TEMP 36.6; O2SAT 98
[2022-01-10] MEDS: Pregabalin 50 MG Capsule PO ×2 (05:49→14:29)
[2022-01-10] MEDS: cloNIDine HCl 0.1 MG Tablet 0.3 MG PO ×2 (05:49→14:29)
[2022-01-10 06:51] VITALS: PULSE 71
[2022-01-10 07:36] LABS: Albumin, Serum 1.6 g/dL (3.2-5.0); BUN 42 mg/dL (7-18); BUN/Creat Ratio 15.1 RATIO (10-20); Chloride 99 mmol/L (98-107); Creatinine, Serum 2.78 mg/dL (0.55-1.02); EST Glomerular Filtration Rate 19 mL/min (>60); Est Glom Filt Rate - Afr Amer 22 mL/min (>60); Estimated Creatinine Clearance 19.61 ml/min; Glucose 469 mg/dL (74-106); Phosphorus 3.9 mg/dL (2.5-4.9); Potassium 5.1 mmol/L (3.5-5.1); Sodium Level 132 mmol/L (136-145)
[2022-01-10] MEDS: Aspirin 81 MG TAB.CHEW PO (07:46)
[2022-01-10 07:55] LABS: Protein, Urine (Random) 77.4 mg/dL (<11.9); Protein:Creat Ratio 1310 mg/g CRE (0-200)
[2022-01-10 08:16] LABS: Bedside Glucose 451 mg/dL (74-106)
[2022-01-10] MEDS: Insulin Lispro 100 UNIT/ML INSULN.PEN 10 UNIT SC ×3 (09:22→11:33)
[2022-01-10] MEDS: Insulin Lispro 100 UNIT/ML INSULN.PEN SC ×2 (09:23→11:33)
[2022-01-10] MEDS: Sertraline 50 MG Tablet PO (09:23)
[2022-01-10] MEDS: Enoxaparin 30 MG/0.3 ML Syringe SC (09:24)
[2022-01-10] MEDS: levoFLOXacin IV 250 MG/50 ML BAG 50 MG IV (09:24)
[2022-01-10] MEDS: dilTIAZem CD 180 MG Capsule PO (09:24)
[2022-01-10] MEDS: Pantoprazole Sodium 40 MG Tablet PO (09:24)
--- NOTE | 2022-01-10 10:27 | PN.RENAL_ITS ---
Subjective Subjective Following for ALMA on CKD Sitting up in bed, eating breakfast. Denies any nausea this morning. Reports tolerated lunch and dinner yesterday without any nausea, vomiting or diarrhea. She states she is hopeful to go home today. Objective Data Objective Data Vital Signs: Vital Signs Temp Pulse Resp BP Pulse Ox O2 Del Method 97.9 F 71 17 153/68 H 98 Room Air 01/10/22 05:45 01/10/22 06:51 01/10/22 05:45 01/10/22 05:45 01/10/22 05:45 01/10/22 05:45 Oxygen Delivery Method Room Air Weight: 76.294 kg Body Mass Index (BMI) 28.0 Intake & Output: Intake and Output for Last 24 Hours 01/08/22 01/09/22 01/10/22 23:59 23:59 23:59 Intake Total 2130 / 2130 1950 / 2270 1360 / 1360 Output Total 800 / 1400 1500 / 1500 Balance 1330 / 730 450 / 770 1360 / 1360 Medical Nutrition Assessment Dietitian: Malnutrition Criteria Met Start: 01/06/22 12:03 Freq: Status: Active Protocol: Document 01/09/22 15:25 AG (Rec: 01/09/22 15:25 AG [id number]) Nutrition Malnutrition Evidence of Malnutrition Exists Yes Malnutrition (severe): Acute Illness/Injury Evidenced By Suboptimal Energy Intake ( Severe),Weight Loss (Severe) Clinical Problem Altered Nutrient-Related Laboratory Values Etiology related to diabetes and renal disease Signs/Symptoms as evidenced by glucose 375, BUN 40, creatinine 2.61, potassium 5.5, A1C 13.9% Status Active Problem Acute Disease or Injury Related Malnutrition Etiology severe, acute malnutrition related to inadequate oral intake d/t acute illness Signs/Symptoms as evidenced by estimated PO intake meeting <50% of estimated nutritional needs and unintentional 5.3kg/7% 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 Pt refusing Glucerna- will d/c. Lab / Micro Data Result Diagrams: 01/09/22 06:05 01/10/22 06:10 Labs: Laboratory Results - last 24 hr 01/09/22 11:10: POC Glucose 243 H 01/09/22 11:30: Ur Random Sodium 54, Urine Creatinine 62.20 01/09/22 11:30: U Random Total Protein 77.4 H, Urine Creatinine 59.10, Pro tein/Creatinin Ratio 1310 H 01/09/22 12:10: Sodium 133 L, Potassium 4.4, Chloride 99, Carbon Dioxide 20.0 L, Anion Gap 14, BUN 42 H, Creatinine 2.77 H, Estim Creat Clear Calc 19.68, Est GFR (MDRD) Af Amer 23 L, Est GFR (MDRD) Non-Af 19 L, BUN/Creatinine Ratio 15.2, Glucose 255 H, Calcium 8.2 L 01/09/22 17:02: POC Glucose 393 H 01/09/22 20:33: POC Glucose 279 H 01/10/22 06:10: Sodium 132 L, Potassium 5.1, Chloride 99, Carbon Dioxide 24.0, BUN 42 H, Creatinine 2.78 H, Estim Creat Clear Calc 19.61, Est GFR (MDRD) Af Amer 22 L, Est GFR (MDRD) Non-Af 19 L, BUN/Creatinine Ratio 15.1, Glucose 469 H* , Calcium 8.0 L, Phosphorus 3.9, Albumin 1.6 L 01/10/22 07:42: POC Glucose 451 H* Micro: Microbiology 01/06/22 10:48 Blood Culture (Wb) - Anticubital Right Blood Culture - Preliminary No growth in 48 hours. 01/06/22 11:08 Blood Culture (Wb) - Right Forearm Blood Culture - Preliminary No growth in 48 hours. 01/06/22 Unknown Urine Catheter - Howard Urine Culture - Final Enterobacter cloacae complex Radiography Diagnostic Testing: Radiology Impression Renal Ultrasound 01/09/22 07:36 IMPRESSION: Normal ultrasound of the kidneys. Electronically Signed: Angel Manley MD at 13:56 EDT , Physical Exam Narrative Const: Alert and oriented x3, no apparent distress Cardio: S1, S2, RRR Respiratory: Lung sounds clear anteriorly and posteriorly GI: Abdomen soft, nontender, positive bowel sounds Extremities: No pitting edema noted to bilateral thighs, legs or feet. Daniel wrap intact to left leg Assessment & Plan Assessment/Plan (1) Acute kidney injury: (2) CKD (chronic kidney disease) stage 3, GFR 30-59 ml/min: (3) UTI (urinary tract infection): (4) Hyperkalemia: (5) Hyperglycemia: PLAN: Plan - Nonoliguric, mildly hypovolemic ALMA on CKD stage III: Patient's creatinine was 3.23 mg/dL on admission and has leveled off around 2.7 mg/dL since January 06. She was initially on IV fluids. Restarted back on IV fluids yesterday as patient had been having some nausea/vomiting and appeared mildly volume depleted. ALMA is possibly in setting of volume depletion with hyperglycemia and UTI. Reviewed home medication list, no recent DANIEL, ARB's or diuretics. Per patient report no recent NSAIDs. -CKD stage III: Reviewing past creatinine trends since 2019 to January 2021 baseline creatinine ranging around 1.2 mg/dL. Creatinine has leveled off around 2.7 mg/dL. Doubt this is baseline CKD however patient may have had some progression of CKD. We will arrange for hospital follow-up to follow renal function trajectory. Discussed with patient importance of good blood sugar control. Urine protein creatinine ratio 1.3 g. Albumin 1.6. Patient may have diabetic kidney disease, last hemoglobin A1c 13.9% on 01/08/2022. Renal US did not show any hydro, mass or calculi. -Hypertension: Blood pressures elevated in the emergency room with systolic blood pressures in the 180s. BPs have improved, on clonidine and diltiazem. No changes today. Will stop IVF. - iron deficient anemia: on oral iron. Needs outpatient colonoscopy -UTI: Blood cultures so far no growth, urine culture Enterobacter cloacae, she is on IV antibiotics, Levaquin. Howard removed. -Discussed with Dr. Centeno.
--- NOTE | 2022-01-10 11:15 | CASEMGMT ---
This RN CM to room and pt states plan is to d/c to home with [facility]. Pt still wants [facility] and is also agreeable to nursing as well as therapy. Call to Laura at [facility] to update on order, voices understanding. Marialuisa POWERS CM
[2022-01-10 11:30] VITALS: BP 137/61; PULSE 78; RESP 18; TEMP 36.8; O2SAT 98
[2022-01-10] MEDS: Ferrous Sulfate 325 MG Tablet PO (11:32)
[2022-01-10 12:05] LABS: Bedside Glucose 307 mg/dL (74-106)
--- NOTE | 2022-01-10 12:10 | PCM.DC.SUM ---
Providers Date of Admission: 01/06/22 Date of Discharge: 01/10/22 Primary Care Physician: Dr. Dennys Serrano MD Consultations 01/06/22 11:19 Consult: Onc/Wound/gluing machine adjuster Routine Comment: 01/09/22 10:59 Consult: Nephrology Routine Consulting Provider: Cora Gilbert Reason for Consult: ALMA on CLKD EMERGENT Consult: No MD Notified: Yes Date Notified: 01/09/22 Time Notified: 11:03 Method of Notification: Answering Service 01/10/22 11:26 Consult: Gastroenterology Routine Consulting Provider: [facility] Reason for Consult: Iron deficiency anemia EMERGENT Consult: No MD Notified: Yes Date Notified: 01/10/22 Time Notified: 11:26 Method of Notification: md to md Reason For Visit: HYPERGLYCEMIA, HYPERKALEMIA, UTI Diagnosis Discharge Diagnosis (1) Acute kidney injury: Status: Acute Code(s): N17.9 - Acute kidney failure, unspecified (2) CKD (chronic kidney disease) stage 3, GFR 30-59 ml/min: Status: Chronic Code(s): N18.30 - Chronic kidney disease, stage 3 unspecified (3) UTI (urinary tract infection): Status: Acute Code(s): N39.0 - Urinary tract infection, site not specified (4) Hyperkalemia: Status: Acute Code(s): E87.5 - Hyperkalemia (5) Hyperglycemia: Status: Acute Code(s): R73.9 - Hyperglycemia, unspecified Plan 1. Acute HHS, resolved 2. Type 2 DM, uncontrolled 3. Acute Enterobacter cloacae UTI 4. Hyperkalemia 5. ALMA on CKD stage IIIa 6. Hyponatremia 7. Hypertension 8. Iron deficiency anemia 9. GERD 10. Severe protein calorie malnutrition Medications at Discharge Home Medications diltiazem HCl 180 mg capsule,extended release 24 hr 180 mg PO DAILY HEART 12/17/18 ondansetron 4 mg disintegrating tablet 4 mg PO Q6H PRN Nausea 12/17/18 aspirin 81 mg chewable tablet 81 mg PO DAILY@0800 HEALTH MAINTENANCE 12/15/19 atorvastatin 40 mg tablet 40 mg PO QHS CHOLESTEROL 12/15/19 pantoprazole 40 mg tablet,delayed release 40 mg PO DAILY GERD 12/15/19 acetaminophen 325 mg tablet (Tylenol) 650 mg PO Q6H PRN PRN Pain Score 1-3 /Temp>100.7 #0 tabs 02/17/21 cyclobenzaprine 5 mg tablet 5 mg PO TID PRN PRN spasm #0 tabs 02/17/21 polyethylene glycol 3350 17 gram oral powder packet 17 g PO DAILY PRN PRN Constipation #1 ea 02/17/21 clonidine HCl 0.3 mg tablet 0.3 mg PO TID bp 01/06/22 insulin lispro 100 unit/mL subcutaneous pen (Humalog KwikPen (U-100) Insulin) 10 unit subcut TIDCM diabetes 01/06/22 pregabalin 75 mg capsule 50 mg PO TID neuropathy 01/06/22 sertraline 50 mg tablet 50 mg PO DAILY antidepressant 01/06/22 tramadol 50 mg tablet 50 mg PO BID PRN Pain 01/06/22 ferrous sulfate 325 mg (65 mg iron) tablet (FeroSul) 325 mg PO DAILY@1200 30 days #30 tabs 01/10/22 insulin glargine-yfgn 100 unit/mL (3 mL) subcutaneous pen 40 unit (0.4 mL) subcut QHS #0 mL 01/10/22 Hospital Course Operations None Procedures None Summary of Care Provided Minutes Spent on Discharge: 40 Hospital Course: 61-year-old female with past medical history of type II DM who was admitted through the emergency room with complaints of feeling unwell for 2 days. She also admitted to dysuria and frequency. Denied fever or chills. Patient was found to have elevated blood glucose more than 600 without anion gap. UA was suggestive of UTI. Patient was initially admitted to ICU and managed as HHS on insulin drip. She also had acute kidney injury on CKD stage IIIa at admission. She was also started on IV ceftriaxone for UTI She was started on IV fluids also. She rapidly improved. Patient was transferred to the progressive care unit. Patient's urine cultures grew Enterobacter cloacae complex, IV ceftriaxone was switched to Levaquin. She completed antibiotics through the time of discharge. She had some improvement in her renal function.Nephrology was consulted for patient's ALMA when her creatinine appears to have plateaued. Renal ultrasound was unremarkable. She was continued on her home insulin regimen with changes to the doses. Her HbA1c was 13.9. She also had evidence of iron deficiency anemia. Outpatient colonoscopy was recommended. Patient was seen by PT and OT. She was discharged home with home health. She will need to follow-up with her primary care doctor within 1 week as well as with nephrology within 1 to 2 weeks. Physical Exam Narrative Physical exam: General: Alert, Oriented x3, Cooperative, appears chronically unwell HEENT: Atraumatic Oral: Moist Mucosa Neck: Supple Lungs: Clear to auscultation Cardiovascular: HS I+II, regular, no murmurs Abdomen: Bowel Sounds Present, Soft, Non Tender Extremities: No edema Skin: No rashes, No breakdown Neurological: Grossly intact Psych/Mental Status: Appropriate Medical Records Data Medical Nutrition Assessment Dietitian: Malnutrition Criteria Met Start: 01/06/22 12:03 Freq: Status: Active Protocol: Document 01/09/22 15:25 AG (Rec: 01/09/22 15:25 AG [id number]) Nutrition Malnutrition Evidence of Malnutrition Exists Yes Malnutrition (severe): Acute Illness/Injury Evidenced By Suboptimal Energy Intake ( Severe),Weight Loss (Severe) Clinical Problem Altered Nutrient-Related Laboratory Values Etiology related to diabetes and renal disease Signs/Symptoms as evidenced by glucose 375, BUN 40, creatinine 2.61, potassium 5.5, A1C 13.9% Status Active Problem Acute Disease or Injury Related Malnutrition Etiology severe, acute malnutrition related to inadequate oral intake d/t acute illness Signs/Symptoms as evidenced by estimated PO intake meeting <50% of estimated nutritional needs and unintentional 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 Pt refusing Glucerna- will d/c. Weight / BMI Weight Weight: 76.294 kg Body Mass Index (BMI) 28.0 ABG / Lab / Microbiology Data Result Diagrams: 01/09/22 06:05 01/10/22 06:10 Laboratory: Laboratory Results - last 24 hr 01/09/22 11:30: U Random Total Protein 77.4 H, Urine Creatinine 59.10, Protein/Creatinin Ratio 1310 H 01/09/22 12:10: Sodium 133 L, Potassium 4.4, Chloride 99, Carbon Dioxide 20.0 L, Anion Gap 14, BUN 42 H, Creatinine 2.77 H, Estim Creat Clear Calc 19.68, Est GFR (MDRD) Af Amer 23 L, Est GFR (MDRD) Non-Af 19 L, BUN/Creatinine Ratio 15.2, Glucose 255 H, Calcium 8.2 L 01/09/22 17:02: POC Glucose 393 H 01/09/22 20:33: POC Glucose 279 H 01/10/22 06:10: Sodium 132 L, Potassium 5.1, Chloride 99, Carbon Dioxide 24.0, BUN 42 H, Creatinine 2.78 H, Estim Creat Clear Calc 19.61, Est GFR (MDRD) Af Amer 22 L, Est GFR (MDRD) Non-Af 19 L, BUN/Creatinine Ratio 15.1, Glucose 469 H*, Calcium 8.0 L, Phosphorus 3.9, Albumin 1.6 L 01/10/22 07:42: POC Glucose 451 H* 01/10/22 11:28: POC Glucose 307 H Microbiology: Microbiology 01/06/22 10:48 Blood Culture (Wb) - Anticubital Right Blood Culture - Preliminary No growth in 48 hours. 01/06/22 11:08 Blood Culture (Wb) - Right Forearm Blood Culture - Preliminary No growth in 48 hours. 01/06/22 Unknown Urine Catheter - Howard Urine Culture - Final Enterobacter cloacae complex Radiography Diagnostic Testing: Radiology Impression Renal Ultrasound 01/09/22 07:36 IMPRESSION: Normal ultrasound of the kidneys. Electronically Signed: Angel Manley MD at 13:56 EDT Reading Location ID and State: [address] [place] [address] , Service support , D/C Instructions Discharge Diet: 1800 Calorie Control Diet and 2000 mg Sodium Diet Meaningful Use Info Meaningful Use Diagnoses (Choose all that apply): None applicable Discharge Plan Admission Admit Date/Time: 01/06/22 09:14 Primary Reason for Your Visit: Hyperglycemia Attending Provider: Madonna Centeno Primary Care Provider: Dennys Serrano Consulting Providers: Alicia Oconnell ; Cora Gilbert Instructions Additional Instructions / Restrictions: Take note of changes to your medications. You are being discharged on an increased dose of insulin. Continue to monitor blood glucose 3 times a day. You will need a colonoscopy in the outpatient for your iron deficiency anemia. You should also follow-up with nephrology, Dr. Najera within 1 to 2 weeks. Follow-up with your primary care doctor at discharge within a week. You will need repeat blood work to check on your kidney function with your primary care doctor within 1 week Discharge Orders/Prescriptions Prescriptions: New insulin glargine-yfgn 100 unit/mL (3 mL) Insulin Pen 40 unit subcut QHS Qty: 0 0RF ferrous sulfate [FeroSul] 325 mg (65 mg iron) Tablet 325 mg PO DAILY@1200 30 Days Qty: 30 0RF Continued diltiazem HCl 180 MG capsule 180 mg PO DAILY ondansetron 4 MG tablet 4 mg PO Q6H PRN (Reason: Nausea) pantoprazole 40 MG tablet 40 mg PO DAILY atorvastatin 40 MG tablet 40 mg PO QHS aspirin 81 MG tablet,chewable 81 mg PO DAILY@0800 acetaminophen [Tylenol] 325 mg Tablet 650 mg PO Q6H PRN PRN (Reason: Pain Score 1-3 /Temp>100.7) Qty: 0 0RF polyethylene glycol 3350 17 gram Powder In Packet 17 g PO DAILY PRN PRN (Reason: Constipation) Qty: 1 0RF cyclobenzaprine 5 mg Tablet 5 mg PO TID PRN PRN (Reason: spasm) Qty: 0 0RF clonidine HCl 0.3 MG tablet 0.3 mg PO TID insulin lispro [Humalog KwikPen Insulin] 100 unit/mL insulin pen 10 unit subcut TIDCM pregabalin 75 mg capsule 50 mg PO TID tramadol 50 mg tablet 50 mg PO BID PRN (Reason: Pain) sertraline 50 mg tablet 50 mg PO DAILY Discontinued insulin glargine [Lantus Solostar U-100 Insulin] 100 unit/mL (3 mL) insulin pen 22 unit SUBCUT QHS Referrals / Follow Up: Usha Pastrana PA [Non-Staff] - 01/16/22 10:00 am Disposition Disposition (needs filled in before D/C Order can be placed): Home Health Service Charges/Coding Visit Charges Inpatient E&M: 66431 Disch Hosp
--- NOTE | 2022-01-10 13:56 | PHA.DC.MC ---
Pharmacy Service has performed discharge medication reconciliation and counseling for this patient. 1. FERROUS SULFATE 325MG PO LUNCH The patient's discharge medication list was reviewed for discrepancies and discrepancies were resolved. Home Medications diltiazem HCl 180 mg capsule,extended release 24 hr 180 mg PO DAILY HEART 12/17/18 ondansetron 4 mg disintegrating tablet 4 mg PO Q6H PRN Nausea 12/17/18 aspirin 81 mg chewable tablet 81 mg PO DAILY@0800 HEALTH MAINTENANCE 12/15/19 atorvastatin 40 mg tablet 40 mg PO QHS CHOLESTEROL 12/15/19 pantoprazole 40 mg tablet,delayed release 40 mg PO DAILY GERD 12/15/19 acetaminophen 325 mg tablet (Tylenol) 650 mg PO Q6H PRN PRN Pain Score 1-3 /Temp>100.7 #0 tabs 02/17/21 cyclobenzaprine 5 mg tablet 5 mg PO TID PRN PRN spasm #0 tabs 02/17/21 polyethylene glycol 3350 17 gram oral powder packet 17 g PO DAILY PRN PRN Constipation #1 ea 02/17/21 clonidine HCl 0.3 mg tablet 0.3 mg PO TID bp 01/06/22 insulin lispro 100 unit/mL subcutaneous pen (Humalog KwikPen (U-100) Insulin) 10 unit subcut TIDCM diabetes 01/06/22 pregabalin 75 mg capsule 50 mg PO TID neuropathy 01/06/22 sertraline 50 mg tablet 50 mg PO DAILY antidepressant 01/06/22 tramadol 50 mg tablet 50 mg PO BID PRN Pain 01/06/22 ferrous sulfate 325 mg (65 mg iron) tablet (FeroSul) 325 mg PO DAILY@1200 30 days #30 tabs 01/10/22 insulin glargine-yfgn 100 unit/mL (3 mL) subcutaneous pen 40 unit (0.4 mL) subcut QHS #0 mL 01/10/22 The patient was counseled on the following discharge medications and changes in medications for homegoing were reviewed. The Reason for Use, instructions for use, and potential side effects were reviewed for all new medications. The patient's questions regarding all of their medications were answered. The patient was able to verbally demonstrate an understanding of their discharge medications.
[2022-01-10 15:35] LABS: Bedside Glucose 193 mg/dL (74-106)
== END 2022-01-10 15:50 | disposition home health service (06) | DRG 638 ==
LOC: ED 07:57 → PCU 09:33
PROVIDERS: Nurse Practitioner Adult Health; Admitting Provider Student in an Organized Health Care Education/Training Program; Emergency Provider Emergency Medicine; PCP Family Medicine; Visit Provider Internal Medicine
DX: E11.65 Type 2 diabetes mellitus with hyperglycemia (principal); N17.9 Acute kidney failure, unspecified; N39.0 Urinary tract infection, site not specified; E87.1 Hypo-osmolality and hyponatremia; F07.81 Postconcussional syndrome; E11.22 Type 2 diabetes mellitus with diabetic chronic kidney disease; B96.89 Other specified bacterial agents as the cause of diseases classified elsewhere; E11.69 Type 2 diabetes mellitus with other specified complication; Z79.4 Long term (current) use of insulin; N18.31 Chronic kidney disease, stage 3a; D50.9 Iron deficiency anemia, unspecified; E87.5 Hyperkalemia; E78.00 Pure hypercholesterolemia, unspecified; I12.9 Hypertensive chronic kidney disease with stage 1 through stage 4 chronic kidney disease, or unspecified chronic kidney disease; K21.9 Gastro-esophageal reflux disease without esophagitis; E78.5 Hyperlipidemia, unspecified; Z23 Encounter for immunization; Z66 Do not resuscitate; Z79.82 Long term (current) use of aspirin; G89.4 Chronic pain syndrome
CPT/HCPCS: 11042; 29581; 36415; 51702; 71045; 76770; 80048; 80053; 80069; 81001; 82009; 82570; 82728; 82962; 83036; 83540; 83550; 84156; 84300; 84484; 85025; 85045; 87040; 87077; 87086; 87088; 87186; 93005; 97110; 97116; 97162; 97165; 97530; 97535; 97802; 97803; 99285; G0008; J7030; 90686; A4216; J2405; J7799

== ENCOUNTER 2022-01-25 09:30 | Outpatient (RCR) | payer MEDICARE, MEDICAID, SELFPAY ==
[2021-12-30 00:56] VITALS: BP 126/69; PULSE 74; RESP 18; TEMP 36.1
[2022-01-02 14:26] VITALS: BP 121/77; PULSE 57; TEMP 35.9
[2022-01-04 08:41] VITALS: BP 122/75; PULSE 87; TEMP 36.4
--- NOTE | 2022-01-04 08:46 | PCM.WC.PN ---
History of Present Illness Date of Service: 01/04/22 Chief Complaint: left heel ulcer left ankle ulcer- healed History of Wound: In October 2019, patient had rubbing in shoes while shopping which led to a blister that developed into an ulceration. Patient was then seen by Dewey Amezquita.P.M. for wound care. Patient then became infected and was admitted to the hospital. Patient was noted to have OM on MRI. Patient wanted to avoid surgery so a local intermodal truck driver course of appropriate IV antibiotics was the treatment chosen. Patient was also noted to have hyperglycemia and has worked with hospitalist and PCP to try to get better control. Blood sugar levels remain elevated. Patient also had LEAS obtained in the hospital which suggested patient had the proper blood flow to allow healing. Patient has since finished local intermodal truck driver course of antibiotics. Patient has since been seen on a weekly basis in office with progression and regression of wound noted over the weeks. Patient has tried various dressing options including wet to dry and santyl. The most progress was noted with Santyl but patient ran out and was unable to refill due to insurance issues. During which time the wound regressed. She also has an offloading surgical shoe and offloading boot to relieve pressure. Patient care is henceforth being carried out at the wound care center. Patient not currently on any antibiotics. Patient has since began skin graft aplications significant improvement is been noted to her foot overall. Patient has finished epifix graft applications with some very small remaining wound noted to left heel. Patient has new wounds noted to bilateral third digits. The right 3rd digit wound has healed. Her left ankle ulcer remains healed Patient relates that ambulation is getting easier and she is rebuilding her strength slowly. She has not had any worsening of minor remaining heel wound since beginning ambulation again. 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 Her has been helping her change the dressings daily to the left heel. She presents to the wound care center today for continued care of her left heel ulceration. Subjective Subjective This is a 61-year-old female who presents for follow-up to the wound care center for a left heel ulceration and circumferential leg wounds bilateral.? She states she is continuing keeping her feet elevated and has noticed that her swelling remains decreased.?She denies any constitutional symptoms today.?She has been changing her outer layer dressings daily to the heel.? She continues to come to the wound care center for nurse visits to perform dressing changes.?She has no further complaints today. Objective Data Objective Data Vital Signs: Vital Signs Temp Pulse Resp BP 97.6 F L 87 18 122/75 H 01/04/22 08:41 01/04/22 08:41 12/30/21 00:56 01/04/22 08:41 Physical Exam Const alert and oriented x3 General Appearance: cooperative HEENT normocephalic Eyes General Eye: normal appearance of both eyes Neck General: normal visual inspection Lymph Lymphatic: no lymphadenopathy noted and no lymphedema noted Resp normal respiratory effort Cardio regular rate and regular rhythm Extremity normal capillary refill, no joint enlargement, no calf tenderness and no pedal edema Skin no rashes or lesions noted, skin turgor normal and no jaundice Wound Narrative: Right lower extremity: Circumferential leg wounds secondary to blister formation remain healed at this time.? Wound to the dorsal aspect of the third digit secondary to trauma is healed.? Ulceration is superficial and demonstrates no signs of infection. Left lower extremity heel decubitus ulceration.? Ulcerative site demonstrates pink wound base with scant fibrotic tissue throughout the wound bed with serosanguineous drainage and no signs of infection.? No palpable fluctuance noted to the left heel.? Ulcerative site does have hyperkeratotic tissue at the wound margins.? Ulcerative site demonstrates closure centrally with new skin formation. Left lower extremity circumferential wounds secondary to blister formation.? Site is stable no signs of infection. Neuro oriented x3 and moves all extremities Debridement Note Debridement Note Wound debrided: Left heel decubitus ulceration Laterality: Left Wound Grade/Stage: Glasgow stage II Type of Debridement: Excisional debridement Anesthesia Used: 5% Lidocaine Gel Depth: Down to and including healthy tissue and in the subcutaneous layer Percentage of wound debrided: 100 Instrument Used: 3mm curette Tissue Removed: Fibrous, devitalized subcutaneous, biofilm, slough Severity: Fat Layer Exposed Amount of bleeding with debridement: Mild Bleeding Controlled with: Compression and gauze Patient tolerated procedure: Patient tolerated procedure well Post-Debridement Measurements and Additional Note: Post-Debridement Measurements/Treatment SAMARIA - Nurse 1 - General Ulcer Assessment Start: 01/02/22 14:25 Freq: Status: Active Protocol: MOOK Activity Type Activity Date Activity User E-sign Co-sign Detail Recorded Client Recorded Date Recorded By Document 01/02/22 14:26 KR [id number] 01/02/22 14:27 KR Document 01/04/22 08:41 ELIO [id number] 01/04/22 08:43 ELIO 01/02/22 01/04/22 14:26 08:41 - Today's Visit Information Type of service Nurse-only Follow-up Visit Visit (Physician/[employer] ) Arrival Mode Ambulatory, Ambulatory, Walker Walker Patient Identification Verified (Name & Yes Yes ) Vital Signs Temperature (97.8 F-99.1 F) 96.7 F L 97.6 F L Temperature Source Temporal Temporal Pulse Rate (60-100) 57 L 87 Pulse Location Monitor Monitor Blood Pressure (90/60-120/80) 121/77 H 122/75 H Blood Pressure Mean (mm Hg) 91 90 Source Monitor Monitor Position Sitting Semi-Fowlers Blood Pressure Location Right Arm Right Arm History Since Last Visit- (Skip if this is Patient's initial visit) Have you changed medications since your No No last visit? Any new allergies or adverse reactions No No Had a fall/change in ADL's that may No No increase risk of falls Signs or symptoms of abuse and/or No No neglect since last visit Have you been in the hospital since your No No last visit? Has dressing in place as prescribed Yes Yes Has compression in place as prescribed Yes Yes Has offloadiing in place as prescribed N/A N/A Experienced any changes in pain level or No No management Left Footwear Other Footwear Regular Shoe (Comment) Right Footwear Other Footwear Regular Shoe (Comment) Pain Scale: 0-10 Numeric Is Patient Pain Free? Yes Yes - Nurse 1 - General Ulcer Measurement Start: 01/02/22 14:25 Freq: Status: Active Protocol: Activity Type Activity Date Activity User E-sign Co-sign Detail Recorded Client Recorded Date Recorded By Document 01/04/22 08:41 ELIO [id number] 01/04/22 08:43 ELIO 01/04/22 08:41 Wound Center Nurse 1 6-left heel -Current Size (cm) - Length 1.4 -Current Size (cm) - Width 1.4 -Current Size (cm) - Depth 0.1 -Total Square Cm 1.96 -Exudate Amt Small -Exudate Type Serosanguineous -Wound Margin Distinct, Outline Attached -Granulation Amt Medium (34-66%) -Granulation Quality [place] -Necrosis Amt Medium (34-66%) -Necrotic Tissue Type Adherent Slough -Texture (Bren-wound Skin Appearance) Assessed, Scarring -Moisture (Bren-wound Skin Appearance) No Abnormality, Assessed -Color (Bren-wound Skin Appearance) No Abnormality, Assessed -Temperature (Bren-wound Skin No Abnormality Appearance) (Pt Warm) -Tenderness on Palpation (Bren-wound No Skin Appearance) -Ulcer Cleansing Soap and Water -Foul Odor after Cleansing No -Anesthetic Used 5% Lidocaine Gel Right Calf (cm) 34 Right Ankle (cm) 24.5 Left Calf (cm) 30 Left Ankle (cm) 23 - Nurse 3 - General Ulcer D/C NN Start: 01/02/22 14:25 Freq: Status: Active Protocol: Activity Type Activity Date Activity User E-sign Co-sign Detail Recorded Client Recorded Date Recorded By Document 01/02/22 14:26 [id number] 01/02/22 14:27 01/02/22 14:26 Vital Signs Temperature (97.8 F-99.1 F) 96.7 F L Temperature Source Temporal Pulse Rate (60-100) 57 L Pulse Location Monitor Blood Pressure (90/60-120/80) 121/77 H Blood Pressure Mean (mm Hg) 91 Source Monitor Position Sitting Blood Pressure Location Right Arm Pain Scale: 0-10 Numeric Is Patient Pain Free? Yes Wound Care Nurse 3 6-left heel -Ulcer Cleansing Rinsed/ Irrigated with Saline -Primary Dressing Applied Promogran Samantha Matter -Primary Dressing Covered/Secured with Dry Gauze, Secured with Tape -Promogran Samantha Matter 1 Left -Multi-Layered Wrap Application Multi-Layer Comp - Bilat ($ ) WC - Visit Discharge Discharge Condition Stable Ambulatory Status Ambulatory, Walker Transportation Private Auto Accom[facility] by [facility] Assessment/Plan Assessment/Plan (1) Pressure ulcer of left heel, stage 2: CODE(S): L89.622 - Pressure ulcer of left heel, stage 2 (2) Chronic kidney disease (CKD) stage G3a/A2, moderately decreased glomerular filtration rate (GFR) between 45-59 mL/min/1.73 square meter and albuminuria creatinine ratio between 30-299 mg/g: CODE(S): N18.31 - Chronic kidney disease, stage 3a (3) Pain in left foot: CODE(S): M79.672 - Pain in left foot (4) Type II diabetes mellitus: CODE(S): E11.9 - Type 2 diabetes mellitus without complications QUALIFIERS: Diabetes mellitus complication detail: with polyneuropathy Diabetes mellitus complication status: with neurologic complications Diabetes mellitus fci insulin use: unspecified local intermodal truck driver insulin use status Qualified Code(s): E11.42 - Type 2 diabetes mellitus with diabetic polyneuropathy (5) Bilateral edema of lower extremity: CODE(S): R60.0 - Localized edema PLAN: Plan Patient seen and evaluated Ulceration to the left plantar heel demonstrates a pink wound base with healthy granular tissue. Ulceration site demonstrates no signs of infection.?Wound margins healthy and atrophic.? Ulceration site was sharply debrided as stated in the clinical panel above. This was tolerated well.? Ulcerative site measures 1.4 cm x 1.3 cm x 0.1 cm. Wound is demonstrating reduction in size. Site was dressed with Samantha and dry sterile dressing.? She is to change the dressing daily. She has multiple wounds secondary to blister formations to the left and right extremity secondary to edema. These are currently healed and stable with no signs of infection. Left lower extremity dressed with 3M compression wrap.?Right leg dressed with 3M compression wrap. I discussed continued elevation of her legs aid in edema reduction and to remain compliant with her compression dressings. She continues to demonstrate progression in healing status of multiple wounds, with bilateral lower extremity edema remaining well-controlled today. She will return to the wound care center on Saturday?for a dressing change to bilateral leg. I discussed with her localized signs of infection.? She is to observe for any erythema or redness moving up the leg, malodor to the ulceration site, purulent drainage from the ulceration site, increased pain to the left heel, or if she experiences any nausea, vomiting, fever, chills or other constitutional symptoms that these are signs of a progressing infection and she needs to report to the ED.? She voices understanding of this. The following work up and care recommendations were made: Dressing: Samantha and DSD to left heel; Adaptic to blister sites with Aquacel Ag and Suprasorb, left leg 3M compression wrap; right lower extremity 3M compression wrap Wash: Soap and water Tissue growth optimization: Samantha Offload: Offloading surgical shoe with heel cut out Vascular: Palpable pedal pulses Edema: Elevation of lower extremities and Compression wrap left lower extremity.? 3M compression wrap bilateral legs Infection: No localized signs of infection Pain: Patient may take [id number] Tylenol extra strength for pain control Host factors: Diabetes mellitus type 2, history of osteomyelitis left heel ? I answered all the patient's questions.? To return to the wound healing center in 1 week or call sooner if the patient has any questions or concerns. ? Note: Scheduling Employee Scheduling Software speech recognition cell pourer software was used to create portions of this document. Sound-alike and misspelled words, as well as other cell pourer errors may be contained in the documentation.
--- NOTE | 2022-01-18 09:15 | PCM.WC.PN ---
History of Present Illness Date of Service: 01/18/22 Chief Complaint: left heel ulcer left ankle ulcer- healed History of Wound: In October 2019, patient had rubbing in shoes while shopping which led to a blister that developed into an ulceration. Patient was then seen by Dewey Amezquita.P.M. for wound care. Patient then became infected and was admitted to the hospital. Patient was noted to have OM on MRI. Patient wanted to avoid surgery so a terminal supervisor course of appropriate IV antibiotics was the treatment chosen. Patient was also noted to have hyperglycemia and has worked with hospitalist and PCP to try to get better control. Blood sugar levels remain elevated. Patient also had LEAS obtained in the hospital which suggested patient had the proper blood flow to allow healing. 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 Patient has since been seen on a weekly basis in office with progression and regression of wound noted over the weeks. Patient has tried various dressing options including wet to dry and santyl. The most progress was noted with Santyl but patient ran out and was unable to refill due to insurance issues. During which time the wound regressed. She also has an offloading surgical shoe and offloading boot to relieve pressure. Patient care is henceforth being carried out at the wound care center. Patient not currently on any antibiotics. Patient has since began skin graft aplications significant improvement is been noted to her foot overall. Patient has finished epifix graft applications with some very small remaining wound noted to left heel. Patient has new wounds noted to bilateral third digits. The right 3rd digit wound has healed. Her left ankle ulcer remains healed Patient relates that ambulation is getting easier and she is rebuilding her strength slowly. She has not had any worsening of minor remaining heel wound since beginning ambulation again. 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 Her has been helping her change the dressings daily to the left heel. She presents to the wound care center today for continued care of her left heel ulceration. Subjective Subjective This is a 61-year-old female who presents for follow-up to the wound care center for a left heel ulceration and circumferential leg wounds bilateral.? She admits to recent hospital admission and stay for hyperglycemia. She states she feels much better since her stay. She denies any constitutional symptoms today.?She has no further complaints today. Objective Data Objective Data Vital Signs: Vital Signs Temp Pulse Resp BP 97.6 F L 87 18 122/75 H 01/04/22 08:41 01/04/22 08:41 12/30/21 00:56 01/04/22 08:41 Physical Exam Const alert and oriented x3 General Appearance: cooperative HEENT normocephalic Eyes General Eye: normal appearance of both eyes Neck General: normal visual inspection Lymph Lymphatic: no lymphadenopathy noted and no lymphedema noted Resp normal respiratory effort Cardio regular rate and regular rhythm Extremity normal capillary refill, no joint enlargement, no calf tenderness and no pedal edema Skin no rashes or lesions noted, skin turgor normal and no jaundice Wound Narrative: Right lower extremity: Circumferential leg wounds secondary to blister formation remain healed at this time.?Superficial anterior lower extremity wound secondary to edema Left lower extremity heel decubitus ulceration.? Ulcerative site demonstrates pink wound base with scant fibrotic tissue throughout the wound bed with serosanguineous drainage and no signs of infection.? No palpable fluctuance noted to the left heel.? Ulcerative site does have hyperkeratotic tissue at the wound margins. Left lower extremity circumferential wounds secondary to blister formation.? Site is stable no signs of infection. Neuro oriented x3 and moves all extremities Debridement Note Debridement Note Wound debrided: Left plantar heel Laterality: Left Wound Grade/Stage: Glasgow stage II Type of Debridement: Excisional debridement Anesthesia Used: 5% Lidocaine Gel Depth: Down to and including healthy tissue and in the subcutaneous layer Percentage of wound debrided: 100 Instrument Used: 3mm curette Tissue Removed: Fibrous, devitalized subcutaneous, biofilm, slough Severity: Fat Layer Exposed Amount of bleeding with debridement: Mild Bleeding Controlled with: Compression and gauze Patient tolerated procedure: Patient tolerated procedure well Post-Debridement Measurements and Additional Note: Post-Debridement Measurements/Treatment SAMARIA - Nurse 1 - General Ulcer Assessment Start: 01/02/22 14:25 Freq: Status: Active Protocol: MOOK Activity Type Activity Date Activity User E-sign Co-sign Detail Recorded Client Recorded Date Recorded By Document 01/02/22 14:26 ELIO [id number] 01/02/22 14:27 KR Document 01/04/22 08:41 ELIO [id number] 01/04/22 08:43 ELIO 01/02/22 01/04/22 14:26 08:41 - Today's Visit Information Type of service Nurse-only Follow-up Visit Visit (Physician/[employer] [facility] ) Arrival Mode Ambulatory, Ambulatory, Walker Walker Patient Identification Verified (Name & Yes Yes ) Vital Signs Temperature (97.8 F-99.1 F) 96.7 F L 97.6 F L Temperature Source Temporal Temporal Pulse Rate (60-100) 57 L 87 Pulse Location Monitor Monitor Blood Pressure (90/60-120/80) 121/77 H 122/75 H Blood Pressure Mean (mm Hg) 91 90 Source Monitor Monitor Position Sitting Semi-Fowlers Blood Pressure Location Right Arm Right Arm History Since Last Visit- (Skip if this is Patient's initial visit) Have you changed medications since your No No last visit? Any new allergies or adverse reactions No No Had a fall/change in ADL's that may No No increase risk of falls Signs or symptoms of abuse and/or No No neglect since last visit Have you been in the hospital since your No No last visit? Has dressing in place as prescribed Yes Yes Has compression in place as prescribed Yes Yes Has offloadiing in place as prescribed N/A N/A Experienced any changes in pain level or No No management Left Footwear Other Footwear Regular Shoe (Comment) Right Footwear Other Footwear Regular Shoe (Comment) Pain Scale: 0-10 Numeric Is Patient Pain Free? Yes Yes - Nurse 1 - General Ulcer Measurement Start: 01/02/22 14:25 Freq: Status: Active Protocol: Activity Type Activity Date Activity User E-sign Co-sign Detail Recorded Client Recorded Date Recorded By Document 01/04/22 08:41 ELIO [id number] 01/04/22 08:43 ELIO 01/04/22 08:41 Wound Center Nurse 1 6-left heel -Current Size (cm) - Length 1.4 -Current Size (cm) - Width 1.4 -Current Size (cm) - Depth 0.1 -Total Square Cm 1.96 -Exudate Amt Small -Exudate Type Serosanguineous -Wound Margin Distinct, Outline Attached -Granulation Amt Medium (34-66%) -Granulation Quality [place] -Necrosis Amt Medium (34-66%) -Necrotic Tissue Type Adherent Slough -Texture (Bren-wound Skin Appearance) Assessed, Scarring -Moisture (Bren-wound Skin Appearance) No Abnormality, Assessed -Color (Bren-wound Skin Appearance) No Abnormality, Assessed -Temperature (Bren-wound Skin No Abnormality Appearance) (Pt Warm) -Tenderness on Palpation (Bren-wound No Skin Appearance) -Ulcer Cleansing Soap and Water -Foul Odor after Cleansing No -Anesthetic Used 5% Lidocaine Gel Right Calf (cm) 34 Right Ankle (cm) 24.5 Left Calf (cm) 30 Left Ankle (cm) 23 WC - Nurse 2 - General Ulcer CM Notes Start: 01/02/22 14:25 Freq: Status: Active Protocol: Activity Type Activity Date Activity User E-sign Co-sign Detail Recorded Client Recorded Date Recorded By Document 01/04/22 12:30 PL [id number] 01/04/22 12:31 PL 01/04/22 12:30 Wound Center Nurse 2 6-left heel -Time 08:52 -Correct Patient Yes -Correct Side, Site, Position Yes -Correct Procedure Yes -Procedure Performed Yes -Type of Procedure Debridement -Clinical Debridement Subcutaneous -Tissue Removed Subcutaneous -Post Debridement (cm) - Length 1.4 -Post Debridement (cm) - Width 1.3 -Post Debridement (cm) - Depth 0.1 -Total Square (Post) (cm) 1.82 -Area of Debridement (cm) - Length 1.4 -Area of Debridement (cm) - Width 1.3 -Total Square (Area) (cm) 1.82 -Tunneling No -Undermining/Tunneling No -Circular Undermining No -Wound/Ulcer Outcome Not Healed -Ulcer Cleansing Rinsed/ Irrigated with Saline -Foul Odor after Cleansing No -Bioengineered Tissue No -Bleeding Controlled with Pressure -Treatment Response Procedure Tolerated Well -Debridement - Subq, 1st 20sq cm Yes Pain Scale: 0-10 Numeric Is Patient Pain Free? Yes WC - Nurse 3 - General Ulcer D/C NN Start: 01/02/22 14:25 Freq: Status: Active Protocol: Activity Type Activity Date Activity User E-sign Co-sign Detail Recorded Client Recorded Date Recorded By Document 01/02/22 14:26 KR [id number] 01/02/22 14:27 KR Document 01/04/22 06:57 PL [id number] 10/07/22 06:57 PL 01/02/22 01/04/22 14:26 06:57 Vital Signs Temperature (97.8 F-99.1 F) 96.7 F L Temperature Source Temporal Pulse Rate (60-100) 57 L Pulse Location Monitor Blood Pressure (90/60-120/80) 121/77 H Blood Pressure Mean (mm Hg) 91 Source Monitor Position Sitting Blood Pressure Location Right Arm Pain Scale: 0-10 Numeric Is Patient Pain Free? Yes Yes Wound Care Nurse 3 6-left heel -Ulcer Cleansing Rinsed/ Irrigated with Saline -Primary Dressing Applied Promogran Samantha Matter -Primary Dressing Covered/Secured with Dry Gauze, Secured with Tape -Promogran Samantha Matter 1 Bilateral -Multi-Layered Wrap Application Multi-Layer Comp - Bilat ($ ) Left -Multi-Layered Wrap Application Multi-Layer Comp - Bilat ($ ) WC - Visit Discharge Discharge Condition Stable Ambulatory Status Ambulatory, Walker Transportation Private Auto [facility] Assessment/Plan Assessment/Plan (1) Pressure ulcer of left heel, stage 2: CODE(S): L89.622 - Pressure ulcer of left heel, stage 2 (2) Chronic kidney disease (CKD) stage G3a/A2, moderately decreased glomerular filtration rate (GFR) between 45-59 mL/min/1.73 square meter and albuminuria creatinine ratio between 30-299 mg/g: CODE(S): N18.31 - Chronic kidney disease, stage 3a (3) Pain in left foot: CODE(S): M79.672 - Pain in left foot (4) Type II diabetes mellitus: CODE(S): E11.9 - Type 2 diabetes mellitus without complications QUALIFIERS: Diabetes mellitus complication detail: with polyneuropathy Diabetes mellitus complication status: with neurologic complications Diabetes mellitus terminal supervisor insulin use: unspecified terminal supervisor insulin use status Qualified Code(s): E11.42 - Type 2 diabetes mellitus with diabetic polyneuropathy (5) Bilateral edema of lower extremity: CODE(S): R60.0 - Localized edema PLAN: Plan Patient seen and evaluated Ulceration to the left plantar heel demonstrates a pink wound base with healthy granular tissue. Ulceration site demonstrates no signs of infection.?Wound margins healthy and atrophic.? Ulceration site was sharply debrided as stated in the clinical panel above. This was tolerated well.? Ulcerative site measures 1.0 cm x 0.9 cm x 0.1 cm. Wound is demonstrating reduction in size. Site was dressed with Samantha and dry sterile dressing.? She is to change the dressing daily. She has multiple wounds secondary to blister formations to the left and right extremity secondary to edema. These are currently healed and stable with no signs of infection. Left lower extremity dressed with 3M compression wrap.?Right leg dressed with 3M compression wrap. I discussed continued elevation of her legs aid in edema reduction and to remain compliant with her compression dressings. She continues to demonstrate progression in healing status of multiple wounds, with bilateral lower extremity edema remaining post hospital discharge. I again discussed returning to compression stockings once her edema gets under control. She will return to the wound care center on Saturday?for a dressing change to bilateral leg. I discussed with her localized signs of infection.? She is to observe for any erythema or redness moving up the leg, malodor to the ulceration site, purulent drainage from the ulceration site, increased pain to the left heel, or if she experiences any nausea, vomiting, fever, chills or other constitutional symptoms that these are signs of a progressing infection and she needs to report to the ED.? She voices understanding of this. The following work up and care recommendations were made: Dressing: Samantha and DSD to left heel; Adaptic to blister sites with Aquacel Ag and Suprasorb, left leg 3M compression wrap; right lower extremity 3M compression wrap Wash: Soap and water Tissue growth optimization: Samantha Offload: Offloading surgical shoe with heel cut out Vascular: Palpable pedal pulses Edema: Elevation of lower extremities and Compression wrap left lower extremity.? 3M compression wrap bilateral legs Infection: No localized signs of infection Pain: Patient may take [id number] Tylenol extra strength for pain control Host factors: Diabetes mellitus type 2, history of osteomyelitis left heel ? I answered all the patient's questions.? To return to the wound healing center in 2 weeks or call sooner if the patient has any questions or concerns. ? Note: [employer] speech recognition surfboard designer software was used to create portions of this document. Sound-alike and misspelled words, as well as other surfboard designer errors may be contained in the documentation.
[2022-01-18 09:33] VITALS: BP 154/81; PULSE 83; TEMP 36
[2022-01-23 15:13] VITALS: BP 181/97; PULSE 75; RESP 16
[2022-01-25 09:49] VITALS: BP 151/94; PULSE 73; RESP 16; TEMP 35.6
== END 2022-01-29 23:59 | disposition home or self-care (01) ==
LOC: WC 09:30
PROVIDERS: PCP Family Medicine; Visit Provider Student in an Organized Health Care Education/Training Program
DX: E11.621 Type 2 diabetes mellitus with foot ulcer (principal); L89.622 Pressure ulcer of left heel, stage 2; E11.65 Type 2 diabetes mellitus with hyperglycemia; E11.22 Type 2 diabetes mellitus with diabetic chronic kidney disease; E11.42 Type 2 diabetes mellitus with diabetic polyneuropathy; Z79.4 Long term (current) use of insulin; N18.31 Chronic kidney disease, stage 3a; M79.672 Pain in left foot; R60.0 Localized edema; Z96.649 Presence of unspecified artificial hip joint
CPT/HCPCS: 11042; 29581

== ENCOUNTER 2022-01-29 12:52 | Outpatient (RCR) | payer MEDICARE, MEDICAID, SELFPAY ==
[2022-01-29 13:37] LABS: Hematocrit 25.6 % (37-47); Mean Corp Hgb Conc 31.3 g/dL (32-36); Mean Corpuscular Volume 89.5 fL (81-99); Mean Platelet Vol. 10.3 fl (6.2-12.0); Platelet Count 315 K/mm3 (150-450); RBC Distribution Width CV 15.3 % (11.6-14.6); RBC Distribution Width SD 50.1 fl (35.1-43.9); Red Blood Count 2.86 M/mm3 (4.2-5.4); White Blood Count 8.1 K/mm3 (4.4-11.0)
[2022-01-29 14:00] LABS: Hemoglobin A1c 10.9 % (3.8-5.6)
== END 2022-01-29 23:59 ==
LOC: HHLAB 12:52
PROVIDERS: PCP Family Medicine; Visit Provider Physician Assistant
DX: N39.0 Urinary tract infection, site not specified (principal); B95.2 Enterococcus as the cause of diseases classified elsewhere; E11.65 Type 2 diabetes mellitus with hyperglycemia
CPT/HCPCS: 83036; 85027

== ENCOUNTER 2022-02-02 18:37 | Emergency (ER) | payer MEDICARE, MEDICAID, SELFPAY ==
[2022-02-02 18:38] VITALS: BP 179/82; PULSE 77; RESP 14; TEMP 36; O2SAT 99; BMI 30.2
[2022-02-02 20:15] LABS: Absolute Lymphocyte Count 1.05 X10^3/uL (0.83-4.51); Absolute Neutrophil Count 2.6 X10^3/uL (2.0-7.7); Basophil# 0.01 X10^3/uL; Basophil% 0.2 % (0-1); Eosinophil# 0.29 X10^3/uL; Eosinophils% 6.9 % (0-5); Hematocrit 24.2 % (37-47); Hemoglobin 7.6 g/dL (12.0-15.0); Lymphocyte # 1.05 X10^3/ul (0.83-4.51); Lymphocyte % 24.8 % (19-41); Mean Corp Hgb Conc 31.4 g/dL (32-36); Mean Corpuscular Hgb 27.7 pg (27.0-32.0); Mean Corpuscular Volume 88.3 fL (81-99); Mean Platelet Vol. 9.5 fl (6.2-12.0); Monocyte# 0.28 X10^3/uL; Monocyte% 6.6 % (0-10); NRBC Flagged by Analyzer 0 % (0-5); Neutrophil # 2.59 X10^3/uL (2.7-7.7); Neutrophil % 61.3 % (47-70); Platelet Count 242 K/mm3 (150-450); RBC Distribution Width CV 15.3 % (11.6-14.6); RBC Distribution Width SD 48.8 fl (35.1-43.9); Red Blood Count 2.74 M/mm3 (4.2-5.4); White Blood Count 4.2 K/mm3 (4.4-11.0)
[2022-02-02 20:29] LABS: Anion Gap 7 (5-15); BUN 51 mg/dL (7-18); BUN/Creat Ratio 18.8 RATIO (10-20); Calcium,Total 9.2 mg/dL (8.5-10.1); Chloride 109 mmol/L (98-107); Creatinine, Serum 2.72 mg/dL (0.55-1.02); EST Glomerular Filtration Rate 19 mL/min (>60); Est Glom Filt Rate - Afr Amer 23 mL/min (>60); Estimated Creatinine Clearance 20.04 ml/min; Glucose 170 mg/dL (74-106); Potassium 4.5 mmol/L (3.5-5.1); Sodium Level 141 mmol/L (136-145)
--- NOTE | 2022-02-02 21:02 | EDS_ITS ---
HPI History of Present Illness Chief Complaint: Abn Labs Detail of Chief Complaint: Abnormal labs Informant: patient Narrative Narrative: Patient presents the emergency room with complaint of abnormal labs today. Patient apparently had lab work done at home and was told that she needed to come to the ER because her kidney levels were off. Patient has a history of CKD. She otherwise does not feel bad. She denies chest pain or shortness of breath. She complains of some edema in her legs and is currently being seen at the wound center for a chronic wound on her left heel. Patient denies fever or recent illness. [facility] Medical History Cardiology follow-up encounter Chronic pain syndrome Closed intertrochanteric fracture of left hip Diabetes Dietary restriction Essential hypertension Excessive bleeding Fall Gastric reflux High cholesterol History of echocardiogram History of edema History of orthostatic hypotension History of stress test HLD (hyperlipidemia) HTN (hypertension) Hx of orthostatic hypotension Injury of head and neck Insulin dependent diabetes mellitus Low iron Malnutrition Migraine headache Migraine without aura Non-smoker Post-concussion syndrome Syncope Type II diabetes mellitus Vertigo Vomiting Wears glasses Home Medications diltiazem HCl 180 mg capsule,extended release 24 hr 180 mg PO DAILY HEART 12/17/18 [History Last Taken 02/13/21] ondansetron 4 mg disintegrating tablet 4 mg PO Q6H PRN Nausea 12/17/18 [History Last Taken 1 Week Ago ~12/08/19] aspirin 81 mg chewable tablet 81 mg PO DAILY@0800 HEALTH MAINTENANCE 12/15/19 [History Last Taken 02/12/21] atorvastatin 40 mg tablet 40 mg PO QHS CHOLESTEROL 12/15/19 [History Last Taken 02/12/21] pantoprazole 40 mg tablet,delayed release 40 mg PO DAILY GERD 12/15/19 [History Last Taken 02/13/21] acetaminophen 325 mg tablet (Tylenol) 650 mg PO Q6H PRN PRN Pain Score 1-3 /Temp>100.7 #0 tabs 02/17/21 [Rx Last Taken Unknown] cyclobenzaprine 5 mg tablet 5 mg PO TID PRN PRN spasm #0 tabs 02/17/21 [Rx Last Taken Unknown] polyethylene glycol 3350 17 gram oral powder packet 17 g PO DAILY PRN PRN Constipation #1 ea 11/19/21 [Rx Last Taken Unknown] clonidine HCl 0.3 mg tablet 0.3 mg PO TID bp 01/06/22 [History Last Taken Unknown] insulin lispro 100 unit/mL subcutaneous pen (Humalog KwikPen (U-100) Insulin) 8 unit subcut TIDCM diabetes 01/06/22 [History Last Taken Unknown] pregabalin 75 mg capsule 50 mg PO TID neuropathy 01/06/22 [History Last Taken Unknown] sertraline 50 mg tablet 50 mg PO DAILY antidepressant 01/06/22 [History Last Taken Unknown] tramadol 50 mg tablet 50 mg PO BID PRN Pain 01/06/22 [History Last Taken Unknown] ferrous sulfate 325 mg (65 mg iron) tablet (FeroSul) 325 mg PO DAILY@1200 30 days #30 tabs 01/10/22 [Rx Last Taken Unknown] insulin glargine-yfgn 100 unit/mL (3 mL) subcutaneous pen 35 unit subcut QHS 02/02/22 [History Last Taken Unknown] Allergy/AdvReac Type Severity Reaction Status Date / Time metformin AdvReac Diarrhea Verified 02/02/22 18:38 Family History Mother Hypertension Father Cancer lymphoma, leukemia Emphysema of lung Grandmother Diabetes Surgical History History of cholecystectomy History of esophagogastroduodenoscopy (EGD) History of mandibular surgery Hx of colonoscopy Social History (Updated 01/06/22 @ 07:[address] Claudio Jj MD) household members: significant other Smoking Status: Never smoker alcohol intake: never substance use type: does not use ROS ROS ED ROS Narrative Abnormal lab work Review of Systems ROS Unobtainable: other Constitutional Constitutional ED: Reports lethargy; Denies chills, fever(s), sweats or weight loss Eyes Eyes: Denies blurry vision, change in vision or diplopia ENT ENT ED: Denies rhinorrhea or sore throat Cardiovascular Cardiovascular: Denies chest pain, orthopnea or racing heartbeat Respiratory/Chest Respiratory/Chest: Denies cough, dyspnea, dyspnea on exertion, orthopnea or sputum Gastrointestinal Gastrointestinal: Denies abdominal pain, diarrhea, nausea or vomiting Genitourinary Genitourinary ED: Denies dysuria, hematuria or urinary frequency Musculoskeletal Musculoskeletal: Denies arthralgias, back pain, myalgias or neck pain Integumentary Denies abscess, Abrasions or rash Neurologic Neurologic: Denies headache(s) or weakness Psychiatric Psychiatric: Denies anxiety, depression or suicidal thoughts Endocrine Endocrinology: Denies polydipsia, polyphagia or polyuria Hematologic/Lymphatic Hematologic/Lymphatic: Denies easy bleeding, easy bruising or lymphadenopathy Allergic/Immunologic Allergic/Immunologic ED: Denies mouth swelling, tongue swelling or urticaria EXAM Physical Exam Const Vital Signs: 02/02/22 18:38 Temperature 96.8 F L Temperature Source Temporal Pulse Rate 77 Respiratory Rate 14 Blood Pressure 179/82 H Blood Pressure Mean 114 Pulse Ox 99 Oxygen Delivery Method Room Air Positive well nourished and well developed General Appearance ED: well developed and NAD HEENT Reports TM's clear and moist mucous membranes normocephalic and atraumatic; Negative for trauma or tenderness Tympanic Membrane ED: Yes TM's clear Eyes PERRL and EOMs intact bilaterally General Eye ED: Negative for pale conjunctiva or scleral icterus Neck no lymphadenopathy, supple and no JVD General: Negative for tenderness Chest Wall inspection of chest normal and palpation of chest normal Chest: Negative for tenderness Resp normal respiratory effort and clear to auscultation bilaterally Effort and Inspection: Negative for respiratory distress or pain with movement Auscultation: Negative for rhonchi, wheezes or diminished lung sounds Cardio regular rate, regular rhythm, S1 normal heart sound, S2 normal heart sound and no murmurs Peripheral Pulses: pulses 2+ throughout GI normal to inspection, nondistended, normoactive bowel sounds, soft to palpation, non-tender, non-distended and no masses Back/Spine no CVA tenderness and no thoracic nor lumbar tenderness Extremity normal to inspection General Extremety ED: Negative for edema General Extremity: Negative for edema Neuro oriented x3, CN's II-XII intact bilaterally, no sensory deficits noted and gait normal Sensorium / Orientation: awake, alert, oriented to person, oriented to place and oriented to time Motor Exam: strength 5/5 throughout and strength abnormal Psych mental status grossly normal Skin no rashes or lesions noted and no wounds MDM MDM MDM Narrative Medical decision making narrative: IV line established on arrival. Basic lab work-up was obtained and did show patient to be anemic with a hemoglobin of 7.6 which is where she chronically has been. Patient also had a BUN of 51 and creatinine 2.72 which has been there for the last month. Her last creatinine before December of this year was a year ago and at that time was approximately 1.3. I did discuss case with patient's PCP. They were worried because of the leg swelling about possibility of DVT. I will obtain venous Dopplers of the lower extremities. Care of patient turned over to evening physician awaiting ultrasound result of lower extremities. I was asked by her PCP not to start diuretics given her chronic kidney disease. Lab Data Attestation: I reviewed the patient's lab results. Labs: Laboratory Results - last 24 hr 02/02/22 02/02/22 20:06 20:06 WBC 4.2 L RBC 2.74 L Hgb 7.6 L Hct 24.2 L MCV 88.3 MCH 27.7 MCHC 31.4 L RDW Std Deviation 48.8 H RDW Coeff of Chris 15.3 H Plt Count 242 MPV 9.5 Immature Gran % (Auto) 0.200 Neut % (Auto) 61.3 Lymph % (Auto) 24.8 Towner % (Auto) 6.6 Eos % (Auto) 6.9 H Baso % (Auto) 0.2 Absolute Neuts (auto) 2.6 Absolute Lymphs (auto) 1.05 Nucleated RBC % 0 Sodium 141 Potassium 4.5 Chloride 109 H Carbon Dioxide 25.0 Anion Gap 7 BUN 51 H Creatinine 2.72 H Estim Creat Clear Calc 20.04 Est GFR (MDRD) Af Amer 23 L Est GFR (MDRD) Non-Af 19 L BUN/Creatinine Ratio 18.8 Glucose 170 H Calcium 9.2 Radiography Diagnostic Testin view chest x-ray obtained interpreted by myself as increased pulmonary congestion without evidence of effusion or infiltrate. Official report from radiology pending. Discharge Plan Triage Chief Complaint: Abn Labs ED Provider: Benjamin Patricia Dx/Rx/DC Orders Clinical Impression: Chronic kidney disease, Leg edema Instructions: CKD Dc, ED Peripheral Edema, Bilateral Prescriptions: No Action diltiazem HCl 180 MG capsule 180 mg PO DAILY ondansetron 4 MG tablet 4 mg PO Q6H PRN (Reason: Nausea) pantoprazole 40 MG tablet 40 mg PO DAILY atorvastatin 40 MG tablet 40 mg PO QHS aspirin 81 MG tablet,chewable 81 mg PO DAILY@0800 acetaminophen [Tylenol] 325 mg Tablet 650 mg PO Q6H PRN PRN (Reason: Pain Score 1-3 /Temp>100.7) Qty: 0 0RF polyethylene glycol 3350 17 gram Powder In Packet 17 g PO DAILY PRN PRN (Reason: Constipation) Qty: 1 0RF cyclobenzaprine 5 mg Tablet 5 mg PO TID PRN PRN (Reason: spasm) Qty: 0 0RF clonidine HCl 0.3 MG tablet 0.3 mg PO TID insulin lispro [Humalog KwikPen Insulin] 100 unit/mL insulin pen 8 unit subcut TIDCM pregabalin 75 mg capsule 50 mg PO TID tramadol 50 mg tablet 50 mg PO BID PRN (Reason: Pain) sertraline 50 mg tablet 50 mg PO DAILY ferrous sulfate [FeroSul] 325 mg (65 mg iron) Tablet 325 mg PO DAILY@1200 30 Days Qty: 30 0RF insulin glargine-yfgn 100 unit/mL (3 mL) insulin pen 35 unit subcut QHS Primary Care Provider: Dennys Serrano Referrals: Dennys Serrano MD [Primary Care Provider] -
--- NOTE | 2022-02-02 22:15 | RAD_ITS ---
INDICATION: dyspnea EXAMINATION/TECHNIQUE: X-RAY - XR Chest 1 View COMPARISON: 01/06/2022. FINDINGS: LINES/DEVICES: None. LUNGS: Abnormal increased attenuation seen throughout much of the bilateral lungs, left greater than right. No focal consolidation. No pleural effusion, nodule or mass. MEDIASTINUM AND CARDIOVASCULAR STRUCTURES: Normal size and contour of the cardiomediastinal silhouette. No evidence of pulmonary vascular congestion. BONES AND SOFT TISSUES: No fracture or focal osseous lesion. RAD/Chest 1 View (Portable) IMPRESSION: 1. Multiple ill-defined areas of increased attenuation may represent groundglass opacities or possible pulmonary interstitial edema. Electronically Signed: Se Mcgowan DO at 22:49 EDT ,
--- NOTE | 2022-02-02 22:29 | US_ITS ---
INDICATION: undefined -- SWELLING EXAMINATION: US Venous Duplex LE Bilat Complete BILATERAL TECHNIQUE: James scale, pulse wave, and color flow Doppler imaging was performed of the lower extremity venous system. The bilateral greater saphenous, common femoral, femoral, popliteal, posterior tibial and peroneal veins were interrogated. COMPARISON: None. FINDINGS: There is normal compression, augmentation, and signal throughout the visualized deep lower extremity veins. There are a few enlarged bilateral inguinal lymph nodes, measuring up to 12 mm short axis diameter on the left and 10 mm on the right. No organized fluid collection demonstrated. US/Venous Duplex Imag/King Extrem IMPRESSION: No sonographic evidence of right or left lower extremity deep venous thrombosis. Bilateral inguinal adenopathy. Electronically Signed: Ravi Adamson MD at 0:02 EDT ,
[2022-02-02 22:47] LABS: BNP,B-Type NATRIURETIC PEPTIDE 256.8 pg/mL (0-100)
[2022-02-03 00:52] VITALS: PULSE 82; RESP 16; O2SAT 95
[2022-02-03 06:00] VITALS: BP 135/72; PULSE 77; RESP 18; O2SAT 97
== END 2022-02-03 06:41 | disposition home or self-care (01) ==
PROVIDERS: Emergency Provider Emergency Medicine; PCP Family Medicine; Visit Provider Emergency Medicine
DX: R60.0 Localized edema (principal); E11.22 Type 2 diabetes mellitus with diabetic chronic kidney disease; Z79.4 Long term (current) use of insulin; E78.00 Pure hypercholesterolemia, unspecified; N18.9 Chronic kidney disease, unspecified; E78.5 Hyperlipidemia, unspecified; I12.9 Hypertensive chronic kidney disease with stage 1 through stage 4 chronic kidney disease, or unspecified chronic kidney disease; D64.9 Anemia, unspecified; R06.00 Dyspnea, unspecified
CPT/HCPCS: 36415; 71045; 80048; 80053; 83880; 85025; 93970; 99285; A4216

== ENCOUNTER → 2022-02-02 | Outpatient (CLI) | payer MEDICARE, MEDICAID, SELFPAY ==
[2022-02-02 10:35] LABS: ALB/GLOB Ratio 0.7 RATIO (0.9-2.4); AST(SGOT) 26 U/L (15-37); Alanine Aminotransfer ALT/SGPT 16 U/L (13-56); Albumin, Serum 2.8 g/dL (3.2-5.0); Alkaline Phosphatase 125 U/L (45-117); Anion Gap 10 (5-15); BUN 54 mg/dL (7-18); BUN/Creat Ratio 18.8 RATIO (10-20); Calcium,Total 9.2 mg/dL (8.5-10.1); Chloride 105 mmol/L (98-107); Creatinine, Serum 2.87 mg/dL (0.55-1.02); EST Glomerular Filtration Rate 18 mL/min (>60); Est Glom Filt Rate - Afr Amer 22 mL/min (>60); Globulin 4.3 g/dL (2.2-4.2); Glucose 167 mg/dL (74-106); Protein, Total 7.1 g/dL (6.4-8.2); Sodium Level 140 mmol/L (136-145)
== END | disposition home or self-care (01) ==
LOC: LAB 08:56
PROVIDERS: PCP Family Medicine; Visit Provider Family Medicine
DX: E10.3519 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, unspecified eye (principal)
CPT/HCPCS: 36415; 80053

== ENCOUNTER 2022-02-08 09:45 | Outpatient (RCR) | payer MEDICARE, MEDICAID, SELFPAY ==
[2022-01-30 00:21] VITALS: BP 151/94; PULSE 73; RESP 16; TEMP 35.6
[2022-01-30 13:34] VITALS: BP 162/79; PULSE 78; RESP 18; TEMP 35.9
[2022-02-06 15:06] VITALS: BP 192/90; PULSE 79; RESP 16; TEMP 36.1
[2022-02-08 10:16] VITALS: BP 160/90; PULSE 77; TEMP 36.2
--- NOTE | 2022-02-08 10:36 | PCM.WC.PN ---
History of Present Illness Date of Service: 02/08/22 Chief Complaint: left heel ulcer left ankle ulcer- healed History of Wound: In October 2019, patient had rubbing in shoes while shopping which led to a blister that developed into an ulceration. Patient was then seen by Dewey Amezquita.P.Usha. for wound care. Patient then became infected and was admitted to the hospital. Patient was noted to have OM on MRI. Patient wanted to avoid surgery so a truck terminal manager course of appropriate IV antibiotics was the treatment chosen. Patient was also noted to have hyperglycemia and has worked with hospitalist and PCP to try to get better control. Blood sugar levels remain elevated. Patient also had LEAS obtained in the hospital which suggested patient had the proper blood flow to allow healing. Patient has since finished truck terminal manager course of antibiotics. Patient has since been seen on a weekly basis in office with progression and regression of wound noted over the weeks. Patient has tried various dressing options including wet to dry and santyl. The most progress was noted with Santyl but patient ran out and was unable to refill due to insurance issues. During which time the wound regressed. She also has an offloading surgical shoe and offloading boot to relieve pressure. Patient care is henceforth being carried out at the wound care center. Patient not currently on any antibiotics. Patient has since began skin graft aplications significant improvement is been noted to her foot overall. Patient has finished epifix graft applications with some very small remaining wound noted to left heel. Patient has new wounds noted to bilateral third digits. The right 3rd digit wound has healed. Her left ankle ulcer remains healed Patient relates that ambulation is getting easier and she is rebuilding her strength slowly. She has not had any worsening of minor remaining heel wound since beginning ambulation again. 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 Her has been helping her change the dressings daily to the left heel. She presents to the wound care center today for continued care of her left heel ulceration. Subjective Subjective This is a 61-year-old female who presents for follow-up to the wound care center for a left heel ulceration and circumferential leg wounds bilateral.? She admits to recent ED visit for hyperglycemia and lower extremity swelling.? She returned to wound care center for dressing change Saturday. She denies any constitutional symptoms today.?She has no further complaints today. Objective Data Objective Data Vital Signs: Vital Signs Temp Pulse Resp BP O2 Del Method 97 F L 79 16 192/90 H Room Air 02/06/22 15:06 02/06/22 15:06 02/06/22 15:06 02/06/22 15:06 02/06/22 15:06 Oxygen Delivery Method Room Air Physical Exam Const alert, oriented x3 and no apparent distress General Appearance: cooperative HEENT normocephalic Eyes General Eye: normal appearance of both eyes Neck General: normal visual inspection Lymph Lymphatic: no lymphadenopathy noted and no lymphedema noted Resp normal respiratory effort Cardio regular rate and regular rhythm Extremity normal capillary refill, no joint enlargement, no calf tenderness and no pedal edema Skin no rashes or lesions noted, skin turgor normal and no jaundice Wound Narrative: Right lower extremity: Circumferential leg wounds secondary to blister formation remain healed at this time.?Superficial anterior lower extremity wound secondary to edema Left lower extremity heel decubitus ulceration.? Ulcerative site demonstrates pink wound base with some areas of epithelialization, no signs of infection.? No palpable fluctuance noted to the left heel.? Ulcerative site does have hyperkeratotic tissue at the wound margins. Left lower extremity circumferential wounds secondary to blister formation.? Site is stable no signs of infection. Neuro moves all extremities Debridement Note Debridement Note Wound debrided: Left heel decubitus ulceration Laterality: Left Wound Grade/Stage: Glasgow stage II Type of Debridement: Excisional debridement Anesthesia Used: 5% Lidocaine Gel Depth: Down to and including healthy tissue and in the subcutaneous layer Percentage of wound debrided: 100 Instrument Used: 3mm curette Tissue Removed: Fibrous, devitalized subcutaneous, biofilm, slough Severity: Fat Layer Exposed Amount of bleeding with debridement: Mild Bleeding Controlled with: Compression and gauze Patient tolerated procedure: Patient tolerated procedure well Post-Debridement Measurements and Additional Note: Post-Debridement Measurements/Treatment WC - Nurse 1 - General Ulcer Assessment Start: 01/30/22 13:34 Freq: Status: Active Protocol: MOOK Activity Type Activity Date Activity User E-sign Co-sign Detail Recorded Client Recorded Date Recorded By Document 01/30/22 13:34 [facility] [id number] 01/30/22 13:35 [facility] Document 02/06/22 15:06 [facility] [id number] 02/06/22 15:15 [facility] 01/30/22 02/06/22 13:34 15:06 - Today's Visit Information Type of service Nurse-only Nurse-only Visit Visit Arrival Mode Wheelchair Wheelchair Transfer Assistance None Other Transfer Assist (Other) 1 STAND BY Patient Identification Verified (Name & Yes Yes ) Patient Requires Transmission-Based No No Precautions Vital Signs Temperature (97.8 F-99.1 F) 96.7 F L 97 F L Temperature Source Temporal Temporal Pulse Rate (60-100) 78 79 Pulse Location Monitor Monitor Respiratory Rate (12-18) 18 16 Respiratory rate source Observation Observation Oxygen Delivery Method Room Air Room Air Blood Pressure (90/60-120/80) 162/79 H 192/90 H Blood Pressure Mean (mm Hg) 106 124 Source Monitor Monitor Position Sitting Sitting Blood Pressure Location Left Forearm Right Arm History Since Last Visit- (Skip if this is Patient's initial visit) Have you changed medications since your No No last visit? Any new allergies or adverse reactions No No Had a fall/change in ADL's that may No No increase risk of falls Signs or symptoms of abuse and/or No No neglect since last visit Have you been in the hospital since your No Yes last visit? Has dressing in place as prescribed Yes No Has compression in place as prescribed Yes No Has offloadiing in place as prescribed N/A Yes Experienced any changes in pain level or No No management Left Footwear Other Footwear (Comment) Right Footwear Other Footwear (Comment) Other Footwear NON SKID SOCKS NON SKID SOCKS Pain Scale: 0-10 Numeric Is Patient Pain Free? Yes Yes - Nurse 1 - General Ulcer Measurement Start: 01/30/22 13:34 Freq: Status: Active Protocol: Activity Type Activity Date Activity User E-sign Co-sign Detail Recorded Client Recorded Date Recorded By Document 01/30/22 13:34 [facility] [id number] 01/30/22 13:35 [facility] Document 02/06/22 15:06 [facility] [id number] 02/06/22 15:15 [facility] 01/30/22 02/06/22 13:34 15:06 Wound Center Nurse 1 Lower Limb Edema Present Yes Yes Right Calf (cm) 42 45 Right Ankle (cm) 26.2 26.9 Left Calf (cm) 38.5 43.5 Left Ankle (cm) 25 25 WC - Nurse 3 - General Ulcer D/C NN Start: 01/30/22 13:34 Freq: Status: Active Protocol: Activity Type Activity Date Activity User E-sign Co-sign Detail Recorded Client Recorded Date Recorded By Document 01/30/22 13:34 [facility] [id number] 01/30/22 13:35 [facility] Document 02/06/22 15:06 [facility] [id number] 02/06/22 15:15 [facility] 01/30/22 02/06/22 13:34 15:06 Vital Signs Temperature (97.8 F-99.1 F) 96.7 F L 97 F L Temperature Source Temporal Temporal Pulse Rate (60-100) 78 79 Pulse Location Monitor Monitor Respiratory Rate (12-18) 18 16 Respiratory rate source Observation Observation Oxygen Delivery Method Room Air Room Air Blood Pressure (90/60-120/80) 162/79 H 192/90 H Blood Pressure Mean (mm Hg) 106 124 Source Monitor Monitor Position Sitting Sitting Blood Pressure Location Left Forearm Right Arm Pain Scale: 0-10 Numeric Is Patient Pain Free? Yes Yes Wound Care Nurse 3 6-left heel -Ulcer Cleansing Soap and Water Soap and Water -Foul Odor after Cleansing No No -Primary Dressing Applied Promogran Promogran Samantha Matter Samantha Matter -Other Dressing HEEL HAT -Primary Dressing Covered/Secured with Dry Gauze & Dry Gauze & Roll Gauze, Roll Gauze, Secured with Secured with Tape Tape -Other Covering HEEL HAT PER MW RN -Promogran Saamntha Matter 1 1 BLE -Multi-Layered Wrap Application Multi-Layer Multi-Layer Comp - Bilat ($ Comp - Bilat ($ ) ) -Other PER MW RN Treatment Response Procedure Procedure Tolerated Well Tolerated Well WC - Visit Discharge Discharge Condition Stable Stable Ambulatory Status Wheelchair Wheelchair Transportation Private Auto Assessment/Plan Assessment/Plan (1) Pressure ulcer of left heel, stage 2: CODE(S): L89.622 - Pressure ulcer of left heel, stage 2 (2) Pain in left foot: CODE(S): M79.672 - Pain in left foot (3) Type II diabetes mellitus: CODE(S): E11.9 - Type 2 diabetes mellitus without complications QUALIFIERS: Diabetes mellitus complication detail: with polyneuropathy Diabetes mellitus complication status: with neurologic complications Diabetes mellitus truck terminal manager insulin use: unspecified halfway insulin use status Qualified Code(s): E11.42 - Type 2 diabetes mellitus with diabetic polyneuropathy (4) Bilateral edema of lower extremity: CODE(S): R60.0 - Localized edema PLAN: Plan Patient seen and evaluated Ulceration to the left plantar heel demonstrates a pink wound base with healthy granular tissue and some sites of epithelialization. Ulceration site demonstrates no signs of infection.?Wound margins healthy and atrophic.? Ulceration site was sharply debrided as stated in the clinical panel above. This was tolerated well.? Ulcerative site measures 0.6 cm x 0.9 cm x 0.1 cm.? Wound is demonstrating reduction in size. Site was dressed with Samantha and dry sterile dressing.? She is to change the dressing daily. Recommend continued offloading of the left heel. She has multiple wounds secondary to blister formations to the left and right extremity secondary to edema. These are currently healed and stable with no signs of infection. Left lower extremity dressed with 3M compression wrap.?Right leg dressed with 3M compression wrap. I discussed continued elevation of her legs aid in edema reduction and to remain compliant with her compression dressings. She continues to demonstrate progression in healing status of multiple wounds, with bilateral lower extremity edema remaining.? I again discussed returning to compression stockings once her edema gets under control. She will return to the wound care center on Saturday?for a dressing change to bilateral leg. I discussed with her localized signs of infection.? She is to observe for any erythema or redness moving up the leg, malodor to the ulceration site, purulent drainage from the ulceration site, increased pain to the left heel, or if she experiences any nausea, vomiting, fever, chills or other constitutional symptoms that these are signs of a progressing infection and she needs to report to the ED.? She voices understanding of this. The following work up and care recommendations were made: Dressing: Samantha and DSD to left heel; Adaptic to blister sites with Aquacel Ag and Suprasorb, left leg 3M compression wrap; right lower extremity 3M compression wrap Wash: Soap and water Tissue growth optimization: Samantha Offload: Offloading surgical shoe with heel cut out Vascular: Palpable pedal pulses Edema: Elevation of lower extremities and Compression wrap left lower extremity.? 3M compression wrap bilateral legs Infection: No localized signs of infection Pain: Patient may take [id number] Tylenol extra strength for pain control Host factors: Diabetes mellitus type 2, history of osteomyelitis left heel ? I answered all the patient's questions.? To return to the wound healing center in 1 week or call sooner if the patient has any questions or concerns. ? Note: [employer] speech recognition school librarian software was used to create portions of this document. Sound-alike and misspelled words, as well as other school librarian errors may be contained in the documentation.
== END 2022-02-28 23:59 | disposition home or self-care (01) ==
LOC: WC 09:45
PROVIDERS: PCP Family Medicine; Visit Provider Student in an Organized Health Care Education/Training Program
DX: E11.621 Type 2 diabetes mellitus with foot ulcer (principal); L89.622 Pressure ulcer of left heel, stage 2; E11.42 Type 2 diabetes mellitus with diabetic polyneuropathy; E11.65 Type 2 diabetes mellitus with hyperglycemia; Z79.4 Long term (current) use of insulin; M79.672 Pain in left foot; R60.0 Localized edema; Z96.649 Presence of unspecified artificial hip joint
CPT/HCPCS: 11042; 29581

== ENCOUNTER 2022-02-09 14:55 | Emergency (ER) | payer MEDICARE, MEDICAID, SELFPAY ==
[2022-02-09 14:56] VITALS: BP 197/89; PULSE 81; RESP 16; TEMP 36.4; O2SAT 100; BMI 33.3
--- NOTE | 2022-02-09 15:40 | EKG12_ITS ---
Test Reason : SOB Blood Pressure : / mmHG Vent. Rate : 079 BPM Atrial Rate : 079 BPM P-R Int : 166 ms QRS Dur : 092 ms QT Int : 396 ms P-R-T Axes : 055 049 060 degrees QTc Int : 454 ms Normal sinus rhythm Normal ECG Confirmed by ALYSSIA AMEZCUA, KARLA ([id number]), field map editor RAFI DOMINGO ([id number]) on 02/13/2022 11:29:18 AM Referred By: Confirmed By:KARLA CADE MD
--- NOTE | 2022-02-09 15:41 | EX.ED.DYSGE1 ---
HPI History of Present Illness Chief Complaint: Edema Informant: patient and spouse/S.O. Narrative Narrative: 61 old female presenting to the emergency department for [place] edema. She states that she has never had this problem before but she does carry a diagnosis of prior lower extremity edema. History of diabetes and chronic kidney disease. She follows with Dr. Terry. Also history of orthostatic hypotension. She states that she has a bacteriologist medical that she sees for hypertension but does not know of any cardiac disease. She notes over the past couple weeks she has had about a 20 pound weight gain. She notes that her legs are significantly swollen up to the level of the hips. She notes chronic wounds of the left foot that she sees the wound center for. She denies any chest pain or shortness of breath. She denies any fever cough. No syncope or near syncope. The patient was seen at the wound care center yesterday and was noted to have bilateral lower extremity wounds and bilateral edema. She is not on any diuretics at this time per her and per the history in the chart. However she does get fragmented care so this could be incorrect. [facility] Medical History Cardiology follow-up encounter Chronic pain syndrome Closed intertrochanteric fracture of left hip Diabetes Dietary restriction Essential hypertension Excessive bleeding Fall Gastric reflux High cholesterol History of echocardiogram History of edema History of orthostatic hypotension History of stress test HLD (hyperlipidemia) HTN (hypertension) Hx of orthostatic hypotension Injury of head and neck Insulin dependent diabetes mellitus Low iron Malnutrition Migraine headache Migraine without aura Non-smoker Post-concussion syndrome Syncope Type II diabetes mellitus Vertigo Vomiting Wears glasses Home Medications diltiazem HCl 180 mg capsule,extended release 24 hr 180 mg PO DAILY HEART 12/17/18 [History Last Taken 02/13/21] ondansetron 4 mg disintegrating tablet 4 mg PO Q6H PRN Nausea 12/17/18 [History Last Taken 1 Week Ago ~12/08/19] aspirin 81 mg chewable tablet 81 mg PO DAILY@0800 HEALTH MAINTENANCE 12/15/19 [History Last Taken 02/12/21] atorvastatin 40 mg tablet 40 mg PO QHS CHOLESTEROL 12/15/19 [History Last Taken 02/12/21] pantoprazole 40 mg tablet,delayed release 40 mg PO DAILY GERD 12/15/19 [History Last Taken 02/13/21] acetaminophen 325 mg tablet (Tylenol) 650 mg PO Q6H PRN PRN Pain Score 1-3 /Temp>100.7 #0 tabs 02/17/21 [Rx Last Taken Unknown] cyclobenzaprine 5 mg tablet 5 mg PO TID PRN PRN spasm #0 tabs 02/17/21 [Rx Last Taken Unknown] polyethylene glycol 3350 17 gram oral powder packet 17 g PO DAILY PRN PRN Constipation #1 ea 02/17/21 [Rx Last Taken Unknown] clonidine HCl 0.3 mg tablet 0.3 mg PO TID bp 01/06/22 [History Last Taken Unknown] insulin lispro 100 unit/mL subcutaneous pen (Humalog KwikPen (U-100) Insulin) 8 unit subcut TIDCM diabetes 01/06/22 [History Last Taken Unknown] pregabalin 75 mg capsule 50 mg PO TID neuropathy 01/06/22 [History Last Taken Unknown] sertraline 50 mg tablet 50 mg PO DAILY antidepressant 01/06/22 [History Last Taken Unknown] tramadol 50 mg tablet 50 mg PO BID PRN Pain 01/06/22 [History Last Taken Unknown] ferrous sulfate 325 mg (65 mg iron) tablet (FeroSul) 325 mg PO DAILY@1200 30 days #30 tabs 01/10/22 [Rx Last Taken Unknown] insulin glargine-yfgn 100 unit/mL (3 mL) subcutaneous pen 35 unit subcut QHS 02/02/22 [History Last Taken Unknown] furosemide 40 mg tablet (Lasix) 40 mg PO DAILY #14 tabs 02/09/22 [Rx Last Taken Unknown] Allergy/AdvReac Type Severity Reaction Status Date / Time metformin AdvReac Diarrhea Verified 02/09/22 14:58 Family History Mother Hypertension Father Cancer lymphoma, leukemia Emphysema of lung Grandmother Diabetes Surgical History History of cholecystectomy History of esophagogastroduodenoscopy (EGD) History of mandibular surgery Hx of colonoscopy Social History household members: significant other Smoking Status: Never smoker alcohol intake: never substance use type: does not use ROS ROS ED Constitutional Constitutional ED: Denies chills or weight loss Eyes Eyes: Denies change in vision or diplopia ENT ENT ED: Denies ear pain, rhinorrhea or sore throat Cardiovascular Cardiovascular: Denies chest pain, orthopnea, palpitations or racing heartbeat Respiratory/Chest Respiratory/Chest: Denies cough, dyspnea or orthopnea Gastrointestinal Gastrointestinal: Denies abdominal pain, diarrhea, nausea or vomiting Genitourinary Genitourinary ED: Denies dysuria, hematuria or urinary frequency Musculoskeletal Musculoskeletal: Denies arthralgias, back pain or myalgias Integumentary Reports other Details: Bilateral lower extremity edema with chronic wounds ; Denies abscess or rash Neurologic Neurologic: Denies headache(s) or weakness Psychiatric Psychiatric: Denies anxiety, depression, suicidal ideation or suicidal thoughts Endocrine Endocrinology: Denies polydipsia, polyphagia or polyuria Allergic/Immunologic Allergic/Immunologic ED: Denies mouth swelling, tongue swelling or urticaria EXAM Physical Exam Const Vital Signs: 02/09/22 14:56 02/09/22 15:44 02/09/22 16:44 Temperature 97.5 F L Temperature Source Temporal Pulse Rate 81 73 Pulse Rate [Lying] Pulse Rate [Sitting (for 1 minute prior to obtaining)] Pulse Rate [Standing (for 1 minute prior to obtaining)] Respiratory Rate 16 Respiratory Effort Normal Non-Labored Respiratory Pattern Normal Blood Pressure 197/89 H Blood Pressure [Lying] Blood Pressure [Sitting (for 1 minute prior to obtaining)] Blood Pressure [Standing (for 1 minute prior to obtaining)] Blood Pressure Mean 125 Blood Pressure Mean [Lying] Blood Pressure Mean [Sitting (for 1 minute prior to obtaining)] Blood Pressure Mean [Standing (for 1 minute prior to obtaining)] Pulse Ox 100 Oxygen Delivery Method Room Air 02/09/22 16:54 02/09/22 18:02 Temperature Temperature Source Pulse Rate 80 Pulse Rate [Lying] 76 Pulse Rate [Sitting (for 1 minute prior to obtaining)] 78 Pulse Rate [Standing (for 1 minute prior to obtaining)] 80 Respiratory Rate 16 Respiratory Effort Respiratory Pattern Blood Pressure 182/81 H Blood Pressure [Lying] 179/68 H Blood Pressure [Sitting (for 1 minute prior to obtaining)] 182/98 H Blood Pressure [Standing (for 1 minute prior to obtaining)] 163/71 H Blood Pressure Mean 114 Blood Pressure Mean [Lying] 105 Blood Pressure Mean [Sitting (for 1 minute prior to obtaining)] 126 Blood Pressure Mean [Standing (for 1 minute prior to obtaining)] 101 Pulse Ox 93 Oxygen Delivery Method Room Air Positive well nourished and well developed General Appearance ED: well developed HEENT Reports normocephalic, head/scalp atraumatic and moist mucous membranes Eyes PERRL and EOMs intact bilaterally Neck no lymphadenopathy, supple and no JVD Resp normal respiratory effort and clear to auscultation bilaterally Cardio regular rate, regular rhythm and no murmurs GI normal to inspection, nondistended, normoactive bowel sounds and non-tender Palpation: soft Back/Spine no CVA tenderness and normal ROM Extremity normal to inspection General Extremety ED: Yes edema and tenderness General Extremity: edema bilateral (Bilateral lower extremity edema up to the level of the hips that is tense.) lower extremity Neuro oriented x3 and CN's II-XII intact bilaterally Sensorium / Orientation: alert Motor Exam: strength 5/5 throughout Psych mental status grossly normal Mood & Affect: Negative for depressed or tearful Skin no rashes or lesions noted and no wounds MDM MDM MDM Narrative Medical decision making narrative: My interpretation of her chest x-ray is new pleural effusion with pulmonary congestion. Her hemoglobin is 7.9. Trending her hemoglobin over the past 1 to 2 years shows that she is chronically between 9 and 7. The patient's troponin is normal. Her creatinine is 2.76 with a BUN of 42. This is also very chronic for her. Beta natruretic peptide 342. The patient is not hypoxic. She does not appear dyspneic. She is not orthostatic. She is not tachycardic. She is not requiring any supplemental oxygen. She is not on any diuretics. She does take diltiazem. I spoke with on-call bacteriologist medical Dr. Nichols. Recommendation is to hold the diltiazem give her a dose of IV 60 mg Lasix here tonight and start her on 40 mg once a day. She is to follow-up with Dr. Terry who she saw in the hospital for nephrology and she also has follow-up appointment with Dr. Benton on Saturday. The patient is comfortable with this plan and notes understanding. Lab Data Attestation: I reviewed the patient's lab results. Labs: Laboratory Results - last 24 hr 02/09/22 02/09/22 02/09/22 15:53 15:53 15:53 WBC 5.5 RBC 2.90 L Hgb 7.9 L Hct 26.2 L MCV 90.3 MCH 27.2 MCHC 30.2 L RDW Std Deviation 50.8 H RDW Coeff of Chris 15.5 H Plt Count 215 MPV 10.5 Immature Gran % (Auto) 0.500 Neut % (Auto) 67.8 Lymph % (Auto) 21.0 [facility] % (Auto) 5.1 Eos % (Auto) 5.1 H Baso % (Auto) 0.5 Absolute Neuts (auto) 3.7 Absolute Lymphs (auto) 1.16 Nucleated RBC % 0 Sodium 139 Potassium 5.0 Chloride 107 Carbon Dioxide 23.0 Anion Gap 9 BUN 42 H Creatinine 2.76 H Estim Creat Clear Calc 19.75 Est GFR (MDRD) Af Amer 23 L Est GFR (MDRD) Non-Af 19 L BUN/Creatinine Ratio 15.2 Glucose 240 H Calcium 8.8 Magnesium 2.2 Total Bilirubin 0.50 AST 10 L ALT 15 Alkaline Phosphatase 140 H Troponin I High Sens 9 B-Natriuretic Peptide 342.1 H Total Protein 7.0 Albumin 3.0 L Globulin 4.0 Albumin/Globulin Ratio 0.8 L Urine Color Urine Clarity Urine pH Ur Specific [place] Urine Protein Urine Glucose (UA) Urine Ketones Urine Occult Blood Urine Nitrite Urine Bilirubin Urine Urobilinogen Ur Leukocyte Esterase Urine RBC Urine WBC Ur Squamous Epith Cells Urine Bacteria Urine Mucus 02/09/22 17:20 WBC RBC Hgb Hct MCV MCH MCHC RDW Std Deviation RDW Coeff of Chris Plt Count MPV Immature Gran % (Auto) Neut % (Auto) Lymph % (Auto) [facility] % (Auto) Eos % (Auto) Baso % (Auto) Absolute Neuts (auto) Absolute Lymphs (auto) Nucleated RBC % Sodium Potassium Chloride Carbon Dioxide Anion Gap BUN Creatinine Estim Creat Clear Calc Est GFR (MDRD) Af Amer Est GFR (MDRD) Non-Af BUN/Creatinine Ratio Glucose Calcium Magnesium Total Bilirubin AST ALT Alkaline Phosphatase Troponin I High Sens B-Natriuretic Peptide Total Protein Albumin Globulin Albumin/Globulin Ratio Urine Color Yellow Urine Clarity Sl. Cloudy Urine pH 6.5 Ur Specific [place] 1.010 Urine Protein 100 H Urine Glucose (UA) 100 H Urine Ketones 15 H Urine Occult Blood 150 H Urine Nitrite Negative Urine Bilirubin Negative Urine Urobilinogen Normal Ur Leukocyte Esterase 500 H Urine RBC 0 SEEN Urine WBC >100 SEEN Ur Squamous Epith Cells 0 SEEN Urine Bacteria 0 SEEN Urine Mucus 0 SEEN EKG Initial EKG: Attestation: I personally reviewed and interpreted this EKG as follows: Comments: Normal sinus rhythm ventricular rate of 79 beats per min Discharge Plan Triage Chief Complaint: Edema Other Complaint: Weakness ED Provider: Florentino Huffman Dx/Rx/DC Orders Clinical Impression: Lymphedema, Essential hypertension, Type II diabetes mellitus, Chronic kidney disease, Diastolic CHF Instructions: Anemia and Kidney Disease, Heart Failure Prescriptions: New furosemide [Lasix] 40 mg tablet 40 mg PO DAILY Qty: 14 0RF No Action diltiazem HCl 180 MG capsule 180 mg PO DAILY ondansetron 4 MG tablet 4 mg PO Q6H PRN (Reason: Nausea) pantoprazole 40 MG tablet 40 mg PO DAILY atorvastatin 40 MG tablet 40 mg PO QHS aspirin 81 MG tablet,chewable 81 mg PO DAILY@0800 acetaminophen [Tylenol] 325 mg Tablet 650 mg PO Q6H PRN PRN (Reason: Pain Score 1-3 /Temp>100.7) Qty: 0 0RF polyethylene glycol 3350 17 gram Powder In Packet 17 g PO DAILY PRN PRN (Reason: Constipation) Qty: 1 0RF cyclobenzaprine 5 mg Tablet 5 mg PO TID PRN PRN (Reason: spasm) Qty: 0 0RF clonidine HCl 0.3 MG tablet 0.3 mg PO TID insulin lispro [Humalog KwikPen Insulin] 100 unit/mL insulin pen 8 unit subcut TIDCM pregabalin 75 mg capsule 50 mg PO TID tramadol 50 mg tablet 50 mg PO BID PRN (Reason: Pain) sertraline 50 mg tablet 50 mg PO DAILY ferrous sulfate [FeroSul] 325 mg (65 mg iron) Tablet 325 mg PO DAILY@1200 30 Days Qty: 30 0RF insulin glargine-yfgn 100 unit/mL (3 mL) insulin pen 35 unit subcut QHS Primary Care Provider: Dennys Serrano Referrals: Aubree Terry DO [Med Staff - Consulting] - As soon as possible Clem Benton MD [Med Staff - Active Staff] - Keep Micheline appointment Dennys Serrano MD [Primary Care Provider] - Activity Restrictions/Additional Instructions: Please discontinue your diltiazem until instructed otherwise. Please pick up man prescription for Lasix tomorrow. Disposition Disposition: Home, Self Care
--- NOTE | 2022-02-09 16:11 | RAD_ITS ---
STUDY: X-RAY CHEST REASON FOR EXAM: Female, 61 years old congestive heart failure. TECHNIQUE: Single frontal view of the chest. COMPARISON: 02/02/2022 FINDINGS: There is a right pleural effusion. There is stable perihilar fullness associated with prominent interstitial markings. Normal size heart. Normal visualized aortic arch and descending thoracic aorta. Normal visualized thoracic spine. Normal visualized ribs, clavicles, and shoulders. There is no demonstrated abnormality of the visualized soft tissue structures of the upper abdomen. RAD/Chest 1 View (Portable) IMPRESSION: Right pleural effusion, cannot exclude associated right basilar atelectasis and/or pneumonia. Pulmonary venous congestion with possible associated interstitial edema. Electronically Signed: Kianna Ellis MD at 11:47 EST ,
[2022-02-09 16:27] LABS: Absolute Lymphocyte Count 1.16 X10^3/uL (0.83-4.51); Absolute Neutrophil Count 3.7 X10^3/uL (2.0-7.7); Basophil# 0.03 X10^3/uL; Basophil% 0.5 % (0-1); Eosinophil# 0.28 X10^3/uL; Eosinophils% 5.1 % (0-5); Hematocrit 26.2 % (37-47); Hemoglobin 7.9 g/dL (12.0-15.0); Lymphocyte # 1.16 X10^3/ul (0.83-4.51); Mean Corp Hgb Conc 30.2 g/dL (32-36); Mean Corpuscular Hgb 27.2 pg (27.0-32.0); Mean Corpuscular Volume 90.3 fL (81-99); Mean Platelet Vol. 10.5 fl (6.2-12.0); Monocyte# 0.28 X10^3/uL; Monocyte% 5.1 % (0-10); NRBC Flagged by Analyzer 0 % (0-5); Neutrophil # 3.74 X10^3/uL (2.7-7.7); Neutrophil % 67.8 % (47-70); Platelet Count 215 K/mm3 (150-450); RBC Distribution Width CV 15.5 % (11.6-14.6); RBC Distribution Width SD 50.8 fl (35.1-43.9); White Blood Count 5.5 K/mm3 (4.4-11.0)
[2022-02-09 16:44] VITALS: PULSE 73
[2022-02-09 16:48] LABS: ALB/GLOB Ratio 0.8 RATIO (0.9-2.4); AST(SGOT) 10 U/L (15-37); Alanine Aminotransfer ALT/SGPT 15 U/L (13-56); Alkaline Phosphatase 140 U/L (45-117); Anion Gap 9 (5-15); BUN 42 mg/dL (7-18); BUN/Creat Ratio 15.2 RATIO (10-20); Calcium,Total 8.8 mg/dL (8.5-10.1); Chloride 107 mmol/L (98-107); Creatinine, Serum 2.76 mg/dL (0.55-1.02); EST Glomerular Filtration Rate 19 mL/min (>60); Est Glom Filt Rate - Afr Amer 23 mL/min (>60); Estimated Creatinine Clearance 19.75 ml/min; Glucose 240 mg/dL (74-106); Magnesium 2.2 mg/dL (1.6-2.6); Sodium Level 139 mmol/L (136-145); Troponin-I HS 9 pg/mL (3.0-54.0)
[2022-02-09 16:54] VITALS: BP 163/71; BP 179/68; BP 182/98; PULSE 76; PULSE 78; PULSE 80
[2022-02-09 17:15] LABS: BNP,B-Type NATRIURETIC PEPTIDE 342.1 pg/mL (0-100)
[2022-02-09 17:26] LABS: Bacteria 0 SEEN /hpf (None Seen); Mucous, Urine 0 SEEN /hpf (<or=2+); Red Blood Cells-Urine 0 SEEN /hpf (0-5); Squamous Epithelial Cells - UA 0 SEEN /hpf (5-10)
[2022-02-09 17:30] LABS: Color, Urine Yellow (Yellow); Glucose, Dipstick 100 mg/dl (Normal); Ketone-Dipstick 15 mg/dl (Negative); Leukocyte Esterase-Dipstick 500 /ul (Negative); Nitrite-Dipstick Negative (Negative); Occult Blood-Urine 150 /ul (Negative); Protein-Dipstick 100 mg/dl (Negative); Urine Bilirubin Dipstick Negative (Negative); Urine Clarity Sl. Cloudy (Clear); Urine Urobilinogen Normal (Normal); Urine pH 6.5 (5.0 - 8.0)
[2022-02-09 17:37] LABS: White Blood Cells >100 SEEN /hpf (0-5)
[2022-02-09 18:02] VITALS: BP 182/81; PULSE 80; RESP 16; O2SAT 93
[2022-02-09] MEDS: Furosemide 100 MG/10 ML Vial 60 MG IV (18:24)
== END 2022-02-09 18:36 | disposition home or self-care (01) ==
PROVIDERS: Emergency Provider Emergency Medicine; PCP Family Medicine; Visit Provider Emergency Medicine
DX: I89.0 Lymphedema, not elsewhere classified (principal); I13.0 Hypertensive heart and chronic kidney disease with heart failure and stage 1 through stage 4 chronic kidney disease, or unspecified chronic kidney disease; I50.30 Unspecified diastolic (congestive) heart failure; E11.22 Type 2 diabetes mellitus with diabetic chronic kidney disease; Z79.4 Long term (current) use of insulin; E78.5 Hyperlipidemia, unspecified; N18.9 Chronic kidney disease, unspecified; E78.00 Pure hypercholesterolemia, unspecified; R53.1 Weakness
CPT/HCPCS: 71045; 80053; 81001; 83735; 83880; 84484; 85025; 93005; 96374; 99285; P9612; A4216; J1940

== ENCOUNTER → 2022-02-09 | Outpatient (CLI) | payer MEDICARE, MEDICAID, SELFPAY ==
[2022-02-09 13:34] LABS: BNP,B-Type NATRIURETIC PEPTIDE 337.1 pg/mL (0-100)
== END | disposition home or self-care (01) ==
LOC: LABSPEC 13:09
PROVIDERS: PCP Family Medicine; Referring Provider Family Medicine; Visit Provider Family Medicine
DX: R60.9 Edema, unspecified (principal); R63.5 Abnormal weight gain
CPT/HCPCS: 83880

== ENCOUNTER 2022-02-13 12:47 | Inpatient (IN) | payer MEDICARE, MEDICAID, SELFPAY ==
[2022-02-13] VITALS (13 sets, daily range): BP systolic 166–195; BP diastolic 72–111; PULSE 76–86; RESP 13–20; TEMP 36.1–36.7; O2SAT 91–96; BMI 33.7; BMI 32.2
--- NOTE | 2022-02-13 13:35 | EKG12_ITS ---
Test Reason : ABNORMAL LABS Blood Pressure : / mmHG Vent. Rate : 077 BPM Atrial Rate : 077 BPM P-R Int : 174 ms QRS Dur : 088 ms QT Int : 394 ms P-R-T Axes : 078 075 079 degrees QTc Int : 445 ms Normal sinus rhythm Normal ECG Confirmed by ALYSSIA AMEZCUA, KARLA ([id number]), film editor supervisor CATHIE STEVENS ([id number]) on 02/14/2022 2:40:30 PM Referred By: Confirmed By:KARLA CADE MD
--- NOTE | 2022-02-13 14:00 | RAD_ITS ---
STUDY: X-RAY CHEST REASON FOR EXAM: Female, 61 years old. Bilateral rales, lymphedema 3 pillow orthopnea TECHNIQUE: PA and lateral views of the chest. COMPARISON: Comparison is made with prior study dated 02/09/2022. FINDINGS: Small bilateral pleural effusions with bibasilar atelectasis. There is evidence of increased interstitial markings suggesting a mild degree of CHF. There is borderline cardiomegaly. Normal mediastinum and emily. Normal visualized pulmonary arteries. There is atherosclerotic calcification of the aortic arch with tortuosity. Normal visualized thoracic spine. Normal visualized ribs, clavicles, and shoulders. There is no demonstrated abnormality of the visualized soft tissue structures of the upper abdomen. RAD/Chest PA and Lateral IMPRESSION: Mild degree of CHF with bibasilar atelectasis and small bilateral pleural effusions. Electronically Signed: Angel Manley MD at 14:26 EST ,
--- NOTE | 2022-02-13 14:01 | EX.ED.DYSGE1 ---
HPI History of Present Illness Chief Complaint: Abn Labs Detail of Chief Complaint: Anemia, history of iron deficiency anemia Informant: patient Onset/Context/Timing Onset: - (Unknown) Context: - (Unknown, suspect gradual) Timing: Continuous (Presumed) Quality: Signs of anemia Current Severity: Mild Maximum Severity: Mild (Slight dyspnea with activity) Worsened by: Nothing specific Relieved by: Nothing Associated Symptoms Associated Symptoms: 3 pillow orthopnea, pedal edema Narrative Narrative: Patient is a 61-year-old woman with history of lymphedema, diastolic congestive heart failure, chronic kidney disease, stage III, essential hypertension and hyperlipidemia who presents because of abnormal blood work. Hemoglobin on the 11 was 7.9. Patient does report shortness of breath going up a flight of stairs. This is not normal. She denies black or maroon-colored stool. She is on iron. She states she is taking her iron. She denies fever, chills night sweats. She denies headache. She denies ocular, visual auditory symptoms. She denies chest pressure. She does have 3 pillow orthopnea. She denies PND. She does report lymphedema lower extremity exam and has wraps on her legs. She denies history of PE or DVT. She denies dyspnea at rest. Prior similar symptoms: Yes Recent Illness/Hospitalization: No PFSH PFSH Medical History Cardiology follow-up encounter Chronic pain syndrome Closed intertrochanteric fracture of left hip Diabetes Dietary restriction Essential hypertension Excessive bleeding Fall Gastric reflux High cholesterol History of echocardiogram History of edema History of orthostatic hypotension History of stress test HLD (hyperlipidemia) HTN (hypertension) Hx of orthostatic hypotension Injury of head and neck Insulin dependent diabetes mellitus Low iron Malnutrition Migraine headache Migraine without aura Non-smoker Post-concussion syndrome Syncope Type II diabetes mellitus Vertigo Vomiting Wears glasses Home Medications diltiazem HCl 180 mg capsule,extended release 24 hr 180 mg PO DAILY blood pressure 12/17/18 [History Last Taken 02/13/21] aspirin 81 mg chewable tablet 81 mg PO QHS HEART HEALTH 12/15/19 [History Last Taken 02/12/22] atorvastatin 40 mg tablet 40 mg PO QHS CHOLESTEROL 12/15/19 [History Last Taken 02/12/22] pantoprazole 40 mg tablet,delayed release 40 mg PO DAILY GERD 12/15/19 [History Last Taken 02/13/22] clonidine HCl 0.3 mg tablet 0.3 mg PO TID BLOOD PRESSURE 01/06/22 [History Last Taken 02/13/22] insulin lispro 100 unit/mL subcutaneous pen (Humalog KwikPen (U-100) Insulin) 8 unit subcut TIDCM diabetes 01/06/22 [History Last Taken 02/13/22] sertraline 50 mg tablet 50 mg PO QHS DEPRESSION 01/06/22 [History Last Taken 02/12/22] tramadol 50 mg tablet 50 mg PO BID PRN Pain 01/06/22 [History Last Taken 02/12/22] insulin glargine-yfgn 100 unit/mL (3 mL) subcutaneous pen 35 unit subcut QHS DIABETES 02/02/22 [History Last Taken 02/12/22] acetaminophen 325 mg tablet (Tylenol) 650 mg PO Q6H PRN PRN Pain 02/13/22 [History Last Taken Unknown] ferrous sulfate 325 mg (65 mg iron) tablet (FeroSul) 325 mg PO QHS SUPPLEMENT 02/13/22 [History Last Taken 02/12/22] ondansetron 4 mg disintegrating tablet 4 mg PO Q8H NAUSEA 02/13/22 [History Last Taken 1 Week Ago ~02/06/22] polyethylene glycol 3350 17 gram oral powder packet 17 g PO DAILY PRN Constipation 02/13/22 [History Last Taken Unknown] furosemide 40 mg tablet (Lasix) 40 mg PO DAILY EDEMA #30 tabs 02/16/22 [Rx Last Taken 02/13/22] hydrochlorothiazide 12.5 mg capsule 12.5 mg PO DAILY 30 days #30 caps 02/16/22 [Rx Last Taken Unknown] pregabalin 75 mg capsule 75 mg PO BID PAIN #60 caps 02/16/22 [Rx Last Taken 02/13/22] Allergy/AdvReac Type Severity Reaction Status Date / Time metformin AdvReac Diarrhea Verified 02/09/22 14:58 Family History Mother Hypertension Father Cancer lymphoma, leukemia Emphysema of lung Grandmother Diabetes Surgical History History of cholecystectomy History of esophagogastroduodenoscopy (EGD) History of mandibular surgery Hx of colonoscopy Social History household members: significant other Smoking Status: Never smoker alcohol intake: never substance use type: does not use ROS ROS ED Constitutional Constitutional ED: Denies chills, fever(s), subjective, sweats or weight loss Eyes Eyes: Denies blurry vision, change in vision or diplopia ENT ENT ED: Denies ear pain, rhinorrhea or sore throat Cardiovascular Cardiovascular: Reports orthopnea and palpitations; Denies chest pain, paroxysmal nocturnal dyspnea or racing heartbeat Respiratory/Chest Respiratory/Chest: Reports dyspnea, dyspnea on exertion and orthopnea; Denies cough or paroxysmal nocturnal dyspnea Gastrointestinal Gastrointestinal: Denies abdominal pain, diarrhea, melena, nausea or vomiting Genitourinary Genitourinary ED: Denies dysuria, hematuria or urinary frequency Musculoskeletal Musculoskeletal: Denies arthralgias, back pain, myalgias or neck pain Integumentary Denies Abrasions Neurologic Neurologic: Denies paresthesias or weakness Endocrine Endocrinology: Denies cold intolerance, heat intolerance, polydipsia or polyphagia Hematologic/Lymphatic Hematologic/Lymphatic: Reports anemia; Denies easy bleeding or easy bruising EXAM Physical Exam Const Vital Signs: 02/13/22 12:49 02/13/22 14:48 Temperature 96.9 F L Temperature Source Temporal Pulse Rate 76 78 Respiratory Rate 18 16 Blood Pressure 166/76 H 185/84 H Blood Pressure Mean 106 117 Pulse Ox 94 96 Oxygen Delivery Method Room Air Room Air Positive well nourished, well developed and unkempt General Appearance ED: unkempt, well developed, NAD and pallor; Negative for cyanotic or diaphoretic HEENT Reports moist mucous membranes HEENT Narrative: Head is atraumatic normocephalic. Ears normal. Nares patent. Mucosa moist. Uvula midline. No erythema exudate the posterior pharynx. No deviation tongue or protrusion. Eyes PERRL and EOMs intact bilaterally General Eye ED: Yes pale conjunctiva; Negative for scleral icterus Neck no lymphadenopathy, supple and no JVD Neck Narrative: Trachea is midline. There is no speech or extra stridor. Chest Wall inspection of chest normal and palpation of chest normal Resp normal respiratory effort and No clear to auscultation bilaterally Auscultation: rales bilateral lower Cardio regular rate, S1 normal heart sound and no murmurs; Negative for S2 normal heart sound GI normal to inspection, nondistended, normoactive bowel sounds, non-tender, non-distended and no masses; Negative for hepatosplenomegaly Palpation: soft Back/Spine no CVA tenderness Thoracic Spine / Upper Back: Negative for thoracic spinal tenderness Lumbar Spine / Lower Back: Negative for lumbar spinal tenderness Extremity Negative for normal to inspection Extremity Narrative: Venous stasis dermatitis with significant lymphedema. Neuro oriented x3, CN's II-XII intact bilaterally and no sensory deficits noted Sensorium / Orientation: alert Motor Exam: strength 5/5 throughout Psych Appearance: unkempt Skin No no rashes or lesions noted General Skin Exam: pallor; Negative for jaundice MDM MDM MDM Narrative Medical decision making narrative: Patient with symptomatic anemia. Will obtain H&H to determine if she qualifies for transfusion. More concerned that patient has exacerbation of her heart failure since she has bilateral rales with lymphedema and 3 pillow orthopnea. EKG was obtained to rule out cardiac ischemia as well as troponin. BNP to confirm suspicion of heart failure. The heart failure may be due to anemia, high-output failure. Patient was typed and crossed for 1 unit of blood since hemoglobin is 7 and she is symptomatic. Since she has exacerbation chronic congestive heart failure with bilateral effusions and significant lymphedema 40 mg of Lasix was ordered. Hospitalist has been paged for admission since patient will require diuresis. Lab Data Attestation: I reviewed the patient's lab results. Lab results narrative: Comprehensive metabolic panel is remarkable for a BUN and creatinine of 40 and 2.84 respectively. GFR is 18. Glucose is elevated 261 with normal CO2 and anion gap. BUN and creatinine are at essentially baseline. BNP is slightly raised to 94. Labs: Laboratory Results - last 24 hr 02/13/22 02/13/22 02/13/22 13:50 13:50 13:50 WBC Cancelled Corrected WBC Cancelled RBC Cancelled Hgb Cancelled Hct Cancelled MCV Cancelled MCH Cancelled MCHC Cancelled RDW Std Deviation Cancelled RDW Coeff of Chris Cancelled Plt Count Cancelled MPV Cancelled Diff Path Review Cancelled Sodium 140 Potassium 5.0 Chloride 107 Carbon Dioxide 24.0 Anion Gap 9 BUN 40 H Creatinine 2.84 H Estim Creat Clear Calc 19.19 Est GFR (MDRD) Af Amer 22 L Est GFR (MDRD) Non-Af 18 L BUN/Creatinine Ratio 14.1 Glucose 261 H Calcium 8.7 Total Bilirubin 0.40 AST 9 L ALT 15 Alkaline Phosphatase 121 H Troponin I High Sens 9 B-Natriuretic Peptide 294.3 H Total Protein 6.2 L Albumin 2.8 L Globulin 3.4 Albumin/Globulin Ratio 0.8 L 02/13/22 14:38 WBC 5.0 Corrected WBC RBC 2.47 L Hgb 7.0 L Hct 22.0 L MCV 89.1 MCH 28.3 MCHC 31.8 L D RDW Std Deviation 51.4 H RDW Coeff of Chris 15.7 H Plt Count 164 MPV 10.4 Diff Path Review Sodium Potassium Chloride Carbon Dioxide Anion Gap BUN Creatinine Estim Creat Clear Calc Est GFR (MDRD) Af Amer Est GFR (MDRD) Non-Af BUN/Creatinine Ratio Glucose Calcium Total Bilirubin AST ALT Alkaline Phosphatase Troponin I High Sens B-Natriuretic Peptide Total Protein Albumin Globulin Albumin/Globulin Ratio Radiography Chest X-Ray - ED: 2 View, Read by ED Physician (Independently reviewed and interpreted by me at 1420), Normal, Heart, Mediastinum, Bony Structures, Right Effusion and Left Effusion Diagnostic Testing: Clinical Impression(s) from Imaging Studies Chest X-Ray 02/13/22 14:00 IMPRESSION: Mild degree of CHF with bibasilar atelectasis and small bilateral pleural effusions. Electronically Signed: Angel Manley MD at 14:26 EST , EKG Initial EKG: Attestation: I personally reviewed and interpreted this EKG as follows: Interpretation: Sinus Rhythm (Ventricular rate is 77. EKG is normal. [place] interval is 174 ms. QS duration 88 ms. QT duration 3 to 94 ms. [place] is normal) Discharge Plan Dx/Rx/DC Orders Clinical Impression: Symptomatic anemia, Type II diabetes mellitus, Lymphedema, Signs and symptoms of anemia, Chronic CHF (congestive heart failure), Bilateral pleural effusion, Transfusion of blood during current hospitalisation, Chronic kidney disease (CKD) stage G4/A2, severely decreased glomerular filtration rate (GFR) between 15-29 mL/min/1.73 square meter and albuminuria creatinine ratio between 30-299 mg/g Disposition Disposition: Acute Care Hospital [facility]
[2022-02-13 14:19] LABS: ALB/GLOB Ratio 0.8 RATIO (0.9-2.4); AST(SGOT) 9 U/L (15-37); Alanine Aminotransfer ALT/SGPT 15 U/L (13-56); Albumin, Serum 2.8 g/dL (3.2-5.0); Alkaline Phosphatase 121 U/L (45-117); Anion Gap 9 (5-15); BUN 40 mg/dL (7-18); BUN/Creat Ratio 14.1 RATIO (10-20); Calcium,Total 8.7 mg/dL (8.5-10.1); Chloride 107 mmol/L (98-107); Creatinine, Serum 2.84 mg/dL (0.55-1.02); EST Glomerular Filtration Rate 18 mL/min (>60); Est Glom Filt Rate - Afr Amer 22 mL/min (>60); Estimated Creatinine Clearance 19.19 ml/min; Globulin 3.4 g/dL (2.2-4.2); Glucose 261 mg/dL (74-106); Protein, Total 6.2 g/dL (6.4-8.2); Sodium Level 140 mmol/L (136-145); Troponin-I HS 9 pg/mL (3.0-54.0)
[2022-02-13 14:20] LABS: BNP,B-Type NATRIURETIC PEPTIDE 294.3 pg/mL (0-100)
[2022-02-13 14:44] LABS: Mean Corp Hgb Conc 31.8 g/dL (32-36); Mean Corpuscular Hgb 28.3 pg (27.0-32.0); Mean Corpuscular Volume 89.1 fL (81-99); Mean Platelet Vol. 10.4 fl (6.2-12.0); Platelet Count 164 K/mm3 (150-450); RBC Distribution Width CV 15.7 % (11.6-14.6); RBC Distribution Width SD 51.4 fl (35.1-43.9); Red Blood Count 2.47 M/mm3 (4.2-5.4)
[2022-02-13 14:47] LABS: Scan Indicated on CBC? Y/N NO
--- NOTE | 2022-02-13 14:56 | HP.PCM.HOS_ITS ---
HPI - General General Date of Admission: 02/13/22 Date of Service: 02/13/22 Chief Complaint: anemia HPI Narrative LAYNE VINCENT, is a 61 F with a PMH as outlined who presents via the ED after being sent in by her PCP o.a of abnormal labs. She had been feeling short of breath, and this was worsened by exertion. She also had associated orthopnea and PND. She denied any chest pain, dark stools or coffee ground emesis. REview of systems was otherwise negative. She had a history of iron deficiency anemia and she was on oral iron supplements which she had been compliant with. Vitals were BP of 185/84, TX of 78, RR of 16 and she was saturating at 96% on room air. CBC showed hb of 7, with wbc of 5 and platelets of 164. Chemistry was significant for Cr of 2.84, with BNP of 294.3 and initial high sensitivity troponin of 9. CXR showed mild degree of CHF with bibasilar atelectasis and small bilateral pleural effusions. One unit of PRBC was ordered in the ED, and she is being admitted to be managed for symptomatic acute on chronic HF as well as acute on chronic iron deficiency anemia. [facility] Medical History Cardiology follow-up encounter Chronic pain syndrome Closed intertrochanteric fracture of left hip Diabetes Dietary restriction Essential hypertension Excessive bleeding Fall Gastric reflux High cholesterol History of echocardiogram History of edema History of orthostatic hypotension History of stress test HLD (hyperlipidemia) HTN (hypertension) Hx of orthostatic hypotension Injury of head and neck Insulin dependent diabetes mellitus Low iron Malnutrition Migraine headache Migraine without aura Non-smoker Post-concussion syndrome Syncope Type II diabetes mellitus Vertigo Vomiting Wears glasses Home Medications diltiazem HCl 180 mg capsule,extended release 24 hr 180 mg PO DAILY blood pressure 12/17/18 [History Last Taken 02/13/21] aspirin 81 mg chewable tablet 81 mg PO QHS HEART HEALTH 12/15/19 [History Last Taken 02/12/22] atorvastatin 40 mg tablet 40 mg PO QHS CHOLESTEROL 12/15/19 [History Last Taken 02/12/22] pantoprazole 40 mg tablet,delayed release 40 mg PO DAILY GERD 12/15/19 [History Last Taken 02/13/22] clonidine HCl 0.3 mg tablet 0.3 mg PO TID BLOOD PRESSURE 01/06/22 [History Last Taken 02/13/22] insulin lispro 100 unit/mL subcutaneous pen (Humalog KwikPen (U-100) Insulin) 8 unit subcut TIDCM diabetes 01/06/22 [History Last Taken 02/13/22] pregabalin 75 mg capsule 7 mg PO BID PAIN 01/06/22 [History Last Taken 02/13/22] sertraline 50 mg tablet 50 mg PO QHS DEPRESSION 01/06/22 [History Last Taken 02/12/22] tramadol 50 mg tablet 50 mg PO BID PRN Pain 01/06/22 [History Last Taken 02/12/22] insulin glargine-yfgn 100 unit/mL (3 mL) subcutaneous pen 35 unit subcut QHS DIABETES 02/02/22 [History Last Taken 02/12/22] acetaminophen 325 mg tablet (Tylenol) 650 mg PO Q6H PRN PRN Pain 02/13/22 [History Last Taken Unknown] ferrous sulfate 325 mg (65 mg iron) tablet (FeroSul) 325 mg PO QHS SUPPLEMENT 02/13/22 [History Last Taken 02/12/22] furosemide 40 mg tablet (Lasix) 40 mg PO DAILY EDEMA 02/13/22 [History Last Taken 02/13/22] ondansetron 4 mg disintegrating tablet 4 mg PO Q8H NAUSEA 02/13/22 [History Last Taken 1 Week Ago ~02/06/22] polyethylene glycol 3350 17 gram oral powder packet 17 g PO DAILY PRN Constipation 02/13/22 [History Last Taken Unknown] Allergy/AdvReac Type Severity Reaction Status Date / Time metformin AdvReac Diarrhea Verified 02/09/22 14:58 Family History Mother Hypertension Father Cancer lymphoma, leukemia Emphysema of lung Grandmother Diabetes Surgical History History of cholecystectomy History of esophagogastroduodenoscopy (EGD) History of mandibular surgery Hx of colonoscopy Social History household members: significant other Smoking Status: Never smoker alcohol intake: never substance use type: does not use ROS Constitutional Constitutional: Reports fatigue, malaise and weakness; Denies anorexia, chills or fever(s) Eyes Eyes: Denies change in vision ENT HEENT: Denies dysphagia or sore throat Cardiovascular Cardiovascular: Reports dyspnea on exertion, edema, orthopnea, palpitations and paroxysmal nocturnal dyspnea; Denies chest pain, lightheadedness, rapid heart rate or syncope Respiratory/Chest Respiratory/Chest: Reports dyspnea, shortness of breath at rest and shortness of breath with exertion; Denies cough, hemoptysis, productive cough or wheezing Gastrointestinal Gastrointestinal: Denies abdominal pain or diarrhea Genitourinary Genitourinary: Denies dysuria Musculoskeletal Musculoskeletal: Denies arthralgias, back pain, joint pain or joint swelling Neurologic Neurologic: Reports disequilibrium; Denies confusion, dizziness, focal weakness or seizures Psychiatric Psychiatric: Denies anxiety or depression Vital Signs Vital Signs Vital Signs: 02/13/22 12:49 02/13/22 14:48 Temperature 96.9 F L Temperature Source Temporal Pulse Rate 76 78 Respiratory Rate 18 16 Blood Pressure 166/76 H 185/84 H Blood Pressure Mean 106 117 Pulse Ox 94 96 Oxygen Delivery Method Room Air Room Air Weight Weight: 202 lb 13.204 oz Body Mass Index (BMI) 33.7 Physical Exam Const alert, oriented x3 and no apparent distress General Appearance: cooperative HEENT normocephalic, head/scalp atraumatic, hearing grossly normal bilaterally and moist oral mucous membranes Eyes PERRL, EOMs intact bilaterally and conjunctivae normal Neck no lymphadenopathy Resp Resp Narrative: mildly diminished breath sounds bibasally, no wheezes or crackles. On room air. Cardio regular rate, regular rhythm, S1 normal heart sound, S2 normal heart sound and no murmurs GI normal to inspection, nondistended, normoactive bowel sounds, soft to palpation, non-tender and non-distended Extremity normal to inspection and full ROM Extremity Narrative: bilateral LE pitting edema Neuro oriented x3, CN's II-XII intact bilaterally, moves all extremities and no focal motor deficits Sensorium / Orientation: awake and alert Motor Exam: strength 5/5 throughout Psych affect normal Results Lab / Micro Data Result Diagrams: 02/13/22 14:38 02/13/22 13:50 Labs: Laboratory Results - last 24 hr 02/13/22 13:50: WBC Cancelled, Corrected WBC Cancelled, RBC Cancelled, Hgb Cancelled, Hct Cancelled, MCV Cancelled, MCH Cancelled, MCHC Cancelled, RDW Std Deviation Cancelled, RDW Coeff of Chris Cancelled, Plt Count Cancelled, MPV Cancelled, Diff Path Review Cancelled 02/13/22 13:50: Sodium 140, Potassium 5.0, Chloride 107, Carbon Dioxide 24.0, Anion Gap 9, BUN 40 H, Creatinine 2.84 H, Estim Creat Clear Calc 19.19, Est GFR (MDRD) Af Amer 22 L, Est GFR (MDRD) Non-Af 18 L, BUN/Creatinine Ratio 14.1, Glucose 261 H, Calcium 8.7, Total Bilirubin 0.40, AST 9 L, ALT 15, Alkaline [place] sphatase 121 H, Troponin I High Sens 9, Total Protein 6.2 L, Albumin 2.8 L, Globulin 3.4, Albumin/Globulin Ratio 0.8 L 02/13/22 13:50: B-Natriuretic Peptide 294.3 H 02/13/22 14:38: WBC 5.0, RBC 2.47 L, Hgb 7.0 L, Hct 22.0 L, MCV 89.1, MCH 28.3, MCHC 31.8 L D, RDW Std Deviation 51.4 H, RDW Coeff of Chris 15.7 H, Plt Count 164, MPV 10.4 Radiology Impression Chest X-Ray 02/13/22 14:00 IMPRESSION: Mild degree of CHF with bibasilar atelectasis and small bilateral pleural effusions. Electronically Signed: Angel Manley MD at 14:26 EST , Assessment & Plan Assessment/Plan (1) Symptomatic anemia: (2) Chronic CHF (congestive heart failure): (3) Bilateral pleural effusion: PLAN: Plan #Acute on chronic HFpEF * admit to PCU * has significant LE edema as well as bilateral coarse crackles in all lung olivo * BNP is 243 and CXR showed small bilateral pleural effusions with bibasilar atelectasis and evidence of increased interstitial markings suggesting a mild degree of CHF with borderline cardiomegaly. * Start diuresis with IV Lasix drip * Monitor intake and output. Fluid restriction 1500 cc daily. * Check 2D echo * Last echocardiogram in 2019 showed EF of 65% with no evidence of diastolic dysfunction and normal left ventricular size with forced apical tenderness and normal systolic function. * #Acute on chronic symptomatic anemia * Hemoglobin is 7. Previous hemoglobin on 02/09/2022 was 7.4. * On iron tablets. Denies any dark stools or coffee-ground emesis * Hold aspirin. Check stool for occult blood * transfuse with one unit of PRBCs * IV PPI * consult GI if stool for occult blood is positive * #Type 2 diabetes mellitus: On Lantus 35 units nightly. Insulin sliding scale. Accu-Cheks ACH S. #Hyperlipidemia: On atorvastatin #CKD stage IV: Creatinine is 2.84 which is around her baseline. #Severe lymphedema: Follows up at wound care for compression wraps. DVT prophylaxis: SCDs. No anticoagulation on account of anemia CODE STATUS: Full code * Patient counseled extensively about different types of CODE STATUS including full code, DNR CCA and DNR CCA. Patient elects to be full code. * Total [id number] time 17 minutes. Charges/Coding Visit Charges Inpatient E&M: 79050 Init Hosp L3 Procedures Hospitalists Procedures: 03634 Advncd Care Plan 30 Min
[2022-02-13] MEDS: Furosemide 40 MG/4 ML Vial IV (15:28)
[2022-02-13 17:58] LABS: Troponin-I HS 10 pg/mL (3.0-54.0)
[2022-02-13 18:25] LABS: Ferritin 162 ng/mL (8-252); Iron 51 ug/dL (50-170); Iron Binding Capacity,Total 267 ug/dL (250-450); PERCENT IRON SATURATION 19.1 % (15.0-55.0)
[2022-02-13] MEDS: 0.9% Saline Lock 10 ML Syringe IV ×2 (18:34→23:37)
[2022-02-13] MEDS: Furosemide 500 MG in Empty Viaflex 50 mL 1 EACH CONT INF (18:34)
[2022-02-13 20:29] LABS: Troponin-I HS 13 pg/mL (3.0-54.0)
[2022-02-13] MEDS: Pregabalin 75 MG Capsule PO (22:05)
[2022-02-13] MEDS: Clonidine HCl 0.1 MG, Clonidine HCl 0.2 MG 0.3 MG PO (22:06)
[2022-02-13] MEDS: Ferrous Sulfate 325 MG Tablet PO (22:07)
[2022-02-13] MEDS: Insulin Glargine-YFGN 100 UNIT/ML Pen 35 UNIT SC (22:07)
[2022-02-13] MEDS: Atorvastatin Calcium 40 MG Tablet PO (22:09)
[2022-02-13] MEDS: Sertraline 50 MG Tablet PO (22:10)
[2022-02-13] MEDS: Ondansetron ODT 4 MG Tablet PO (22:14)
[2022-02-13 22:40] LABS: Bedside Glucose 313 mg/dL (74-106)
[2022-02-13] MEDS: Ondansetron 4 MG/2 ML Vial IV (23:37)
[2022-02-14] VITALS (18 sets, daily range): BP systolic 95–154; BP diastolic 55–82; PULSE 56–82; RESP 18; TEMP 36.6–36.7; O2SAT 89–98
[2022-02-14 05:06] LABS: Absolute Lymphocyte Count 0.85 X10^3/uL (0.83-4.51); Absolute Neutrophil Count 2.8 X10^3/uL (2.0-7.7); Basophil# 0.02 X10^3/uL; Basophil% 0.5 % (0-1); Eosinophil# 0.16 X10^3/uL; Eosinophils% 3.9 % (0-5); Hematocrit 25.6 % (37-47); Lymphocyte # 0.85 X10^3/ul (0.83-4.51); Lymphocyte % 20.6 % (19-41); Mean Corp Hgb Conc 31.3 g/dL (32-36); Mean Corpuscular Hgb 27.4 pg (27.0-32.0); Mean Corpuscular Volume 87.7 fL (81-99); Mean Platelet Vol. 10.3 fl (6.2-12.0); Monocyte# 0.33 X10^3/uL; NRBC Flagged by Analyzer 0 % (0-5); Neutrophil # 2.76 X10^3/uL (2.7-7.7); Neutrophil % 66.8 % (47-70); Platelet Count 179 K/mm3 (150-450); RBC Distribution Width CV 15.6 % (11.6-14.6); RBC Distribution Width SD 50.3 fl (35.1-43.9); Red Blood Count 2.92 M/mm3 (4.2-5.4); White Blood Count 4.1 K/mm3 (4.4-11.0)
[2022-02-14] MEDS: Ondansetron ODT 4 MG Tablet PO ×3 (05:23→22:25)
[2022-02-14] MEDS: Clonidine HCl 0.1 MG, Clonidine HCl 0.2 MG 0.3 MG PO ×2 (05:23→22:25)
[2022-02-14 05:36] LABS: Anion Gap 5 (5-15); BUN 39 mg/dL (7-18); BUN/Creat Ratio 14.2 RATIO (10-20); Calcium,Total 8.1 mg/dL (8.5-10.1); Chloride 109 mmol/L (98-107); Creatinine, Serum 2.74 mg/dL (0.55-1.02); EST Glomerular Filtration Rate 19 mL/min (>60); Est Glom Filt Rate - Afr Amer 23 mL/min (>60); Estimated Creatinine Clearance 19.89 ml/min; Glucose 204 mg/dL (74-106); Potassium 4.7 mmol/L (3.5-5.1); Sodium Level 140 mmol/L (136-145)
--- NOTE | 2022-02-14 05:55 | ECHOD_ITS ---
Reason For Study: CHF Procedure This was a 2D Doppler, Color Flow transthoracic echocardiogram. Exam performed portable in patient room. Left Ventricle Mild concentric left ventricular hypertrophy. Normal LV size. Mild global left ventricular systolic dysfunction. The left ventricular ejection fraction is 45 %. Diastolic function is indeterminate. Right Ventricle Normal right ventricle. Atria The left and right atria are normal. Mitral Valve Mild (1+) mitral valve insufficiency. Tricuspid Valve Mild tricuspid valve insufficiency. Pulmonary artery systolic pressure is 37 mmHg. Aortic Valve Normal aortic valve. Pulmonic Valve The pulmonic valve is not well visualized. Great Vessels Normal sized aortic root. Pericardium/Pleural No pericardial effusion. MMode/2D Measurements & Calculations LVIDd: 5.3 cm IVSd: 1.2 cm Ao root diam: 3.2 cm LVIDs: 3.9 cm LVPWd: 1.1 cm RVDd: 2.8 cm FS: 26.2 % LAV(MOD-bp): 79.6 ml LA A4 area: 23.7 cm2 LA dimension(2D): 3.6 cm LAV(MOD-bp) Indexed: 40.9 ml/m2 LAV(MOD-sp2): 72.7 ml LAV(MOD-sp4): 78.6 ml RA A4 area: 15.4 cm2 Time Measurements MV dec time: 0.19 sec Doppler Measurements & Calculations MV E max virgil: 91.9 cm/sec Lat Peak E' Virgil: 7.8 cm/sec Med Peak E' Virgil: 6.9 cm/sec MV A max virgil: 64.7 cm/sec E/E' lat: 11.8 E/E' med: 13.4 MV E/A: 1.4 MV dec slope: 475.5 cm/sec2 Ao V2 max: 129.2 cm/sec LV V1 max: 87.9 cm/sec Ao max P.7 mmHg LV V1 max P.1 mmHg Ao V2 mean: 91.0 cm/sec LV V1 mean P.9 mmHg Ao mean P.8 mmHg LV V1 mean: 65.6 cm/sec Ao V2 VTI: 31.3 cm LV V1 VTI: 20.7 cm MR max virgil: 489.0 cm/sec PA V2 max: 84.8 cm/sec TR max vigril: 261.4 cm/sec MR max P.6 mmHg TR max P.3 mmHg ECHO/Echo Complete Interpretation Summary Mild concentric left ventricular hypertrophy. Mild global left ventricular systolic dysfunction. The left ventricular ejection fraction is 45 %. Diastolic function is indeterminate. Mild (1+) mitral valve insufficiency. Mild tricuspid valve insufficiency. Pulmonary artery systolic pressure is 37 mmHg. Ordering Physician: Alicia Oconnell Referring Physician: Dennsy Serrano Performed By: Marly Dunaway RDCS, RVT
--- NOTE | 2022-02-14 08:31 | CPS ---
patient increased to 2 lpm
--- NOTE | 2022-02-14 09:22 | WOUNDNOTE ---
skin photo: right lower leg
--- NOTE | 2022-02-14 09:22 | WOUNDNOTE ---
wound photo: left lower leg
--- NOTE | 2022-02-14 09:23 | WOUNDNOTE ---
wound photo: left foot
--- NOTE | 2022-02-14 09:24 | WOUNDNOTE ---
wound photo: left plantar heel
--- NOTE | 2022-02-14 09:40 | PCM.PN.HOSP ---
Subjective Subjective Is beginning to feel better, breathing improving. Going to try to eat breakfast. Denied other complaints at this time Objective Data Objective Data Vital Signs: Vital Signs Temp Pulse Resp BP Pulse Ox O2 Del Method O2 Flow Rate 98 F 67 18 145/69 H 89 Nasal Cannula 2 02/14/22 05:24 02/14/22 05:24 02/14/22 05:24 02/14/22 05:24 02/14/22 08:00 02/14/22 08:50 02/14/22 08:50 Oxygen Flow Rate (L/min) 2 Oxygen Delivery Method Nasal Cannula Weight: 87.815 kg Body Mass Index (BMI) 32.2 Intake & Output: Intake and Output for Last 24 Hours 02/12/22 02/13/22 02/14/22 23:59 23:59 23:59 Intake Total 510 / 510 250 / 250 Output Total 600 / 2000 2450 / 2450 Balance -90 / -1490 -2200 / -2200 Lab / Micro Data Result Diagrams: 02/14/22 04:05 02/14/22 04:05 Labs: Laboratory Results - last 24 hr 02/13/22 13:50: WBC Cancelled, Corrected WBC Cancelled, RBC Cancelled, Hgb Cancelled, Hct Cancelled, MCV Cancelled, MCH Cancelled, MCHC Cancelled, RDW Std Deviation Cancelled, RDW Coeff of Chris Cancelled, Plt Count Cancelled, MPV Cancelled, Diff Path Review Cancelled 02/13/22 13:50: Sodium 140, Potassium 5.0, Chloride 107, Carbon Dioxide 24.0, Anion Gap 9, BUN 40 H, Creatinine 2.84 H, Estim Creat Clear Calc 19.19, Est GFR (MDRD) Af Amer 22 L, Est GFR (MDRD) Non-Af 18 L, BUN/Creatinine Ratio 14.1, Glucose 261 H, Calcium 8.7, Total Bilirubin 0.40, AST 9 L, ALT 15, Alkaline Phosphatase 121 H, Troponin I High Sens 9, Total Protein 6.2 L, Albumin 2.8 L, Globulin 3.4, Albumin/Globulin Ratio 0.8 L 02/13/22 13:50: B-Natriuretic Peptide 294.3 H 02/13/22 13:50: Blood Type A POSITIVE, Antibody Screen NEGATIVE 02/13/22 13:50: Crossmatch See Detail 02/13/22 13:50: Iron 51, TIBC 267, Iron Saturation 19.1, Ferritin 162 02/13/22 14:38: WBC 5.0, RBC 2.47 L, Hgb 7.0 L, Hct 22.0 L, MCV 89.1, MCH 28.3, MCHC 31.8 L D, RDW Std Deviation 51.4 H, RDW Coeff of Chris 15.7 H, Plt Count 164, MPV 10.4 02/13/22 17:31: Troponin I High Sens 10 02/13/22 19:45: Troponin I High Sens 13 02/13/22 21:56: POC Glucose 313 H 02/14/22 04:05: WBC 4.1 L, RBC 2.92 L, Hgb 8.0 L, Hct 25.6 L, MCV 87.7, MCH 27.4, MCHC 31.3 L, RDW Std Deviation 50.3 H, RDW Coeff of Chris 15.6 H, Plt Count 179, MPV 10.3, Immature Gran % (Auto) 0.200, Neut % (Auto) 66.8, Lymph % (Auto) 20.6, [place] % (Auto) 8.0, Eos % (Auto) 3.9, Baso % (Auto) 0.5, Absolute Neuts (auto) 2.8, Absolute Lymphs (auto) 0.85, Nucleated RBC % 0 02/14/22 04:05: Sodium 140, Potassium 4.7, Chloride 109 H, Carbon Dioxide 26.0, Anion Gap 5, BUN 39 H, Creatinine 2.74 H, Estim Creat Clear Calc 19.89, Est GFR (MDRD) Af Amer 23 L, Est GFR (MDRD) Non-Af 19 L, BUN/Creatinine Ratio 14.2, Glucose 204 H, Calcium 8.1 L Radiography Diagnostic Testing: Radiology Impression Chest X-Ray 02/13/22 14:00 IMPRESSION: Mild degree of CHF with bibasilar atelectasis and small bilateral pleural effusions. Electronically Signed: Angel Manley MD at 14:26 EST , Physical Exam Const alert and no apparent distress Constitutional Narrative: Oriented HEENT normocephalic and head/scalp atraumatic Eyes Eyes Narrative: EOM grossly intact, anicteric Neck supple Resp normal respiratory effort Resp Narrative: Somewhat diminished at the bases Cardio regular rate and regular rhythm GI soft to palpation, non-tender and non-distended Extremity Extremity Narrative: Legs wrapped due to chronic edema Neuro moves all extremities Neuro Narrative: No overt focal deficits appreciated Psych Psych Narrative: Cooperative Assessment & Plan Assessment/Plan (1) Symptomatic anemia: (2) Chronic CHF (congestive heart failure): (3) Bilateral pleural effusion: PLAN: Plan 61-year-old female history of hypertension, diabetes, migraine, CKD stage IV, and orthostatic hypotension presented to [facility] 02/13 at the urging of her PCP due to abnormal labs. She been feeling short of breath that was worsened on exertion. Does have a history of iron deficiency anemia and was on oral iron supplement. In the ED hemoglobin was 7 with BNP of 294. Chest x-ray with mild degree of CHF and bibasilar atelectasis and small effusions. 1 unit of packed red blood cells given in the ED and she was admitted for management of acute on chronic heart failure as well as acute on chronic iron deficiency anemia. #Acute on chronic heart failure with preserved ejection fraction Evidence on x-ray with mild elevation in BNP and significant lower extremity edema On Lasix drip?given improvement will transition to p.o. Fluid restriction to 1500 cc daily I's and O's Last echo 2019 EF 65 no evidence of diastolic dysfunction and normal force, will obtain new echo Does follow with cardiology on an outpatient basis for her blood pressure but denied any known cardiac disease #Acute on chronic symptomatic anemia Hemoglobin of 7, most recent hemoglobin 02/09 was 7.4 On iron tablets No overt bleeding had been reported Holding aspirin, stool for occult blood 1 unit packed red blood cells with IV PPI Will consult GI if stool occult was positive 02/14: Hemoglobin increased to 8.0 after unit of blood, continue to monitor CBC. Iron panel within normal limits. #Type 2 diabetes mellitus: On Lantus 35 units nightly.? Insulin sliding scale.? Accu-Cheks ACH S. #Hyperlipidemia: On atorvastatin #CKD stage IV: Creatinine is 2.84 on admission which is around her baseline. Follows with Dr. Terry as an out patient #Severe lymphedema: Follows up at wound care for compression wraps. DVT prophylaxis: SCDs.? No anticoagulation on account of anemia Charges/Coding Visit Charges Inpatient E&M: 89405 Subs Hosp L2
[2022-02-14] MEDS: Pregabalin 75 MG Capsule PO ×2 (09:56→22:25)
[2022-02-14] MEDS: dilTIAZem CD 180 MG Capsule PO (09:56)
--- NOTE | 2022-02-14 10:10 | CASEMGMT ---
RN CM [place] GUIDE CM to room to meet with patient for initial transition planning/care coordination assessment. RN CM introduced self and role at [facility]. Pt voices understanding and consents to assessment at this time. Pt resting in bed in no distress at this time. Pt is A/O at this time and answers all questions appropriately. Care providers, pharmacy, and demographics verified/updated at this time. PCP: Dr Serrano Specialists: Dr Crowley- optical store manager; Dr Steel- pain mgmt, Dr Terry-nephrology (appt May 02), [facility] Veterinarian @ [facility] (Appt Mar 13). Pt states she was supposed to start going to [facility], but had 1st appt scheduled this week and had to cancel it. Preferred Pharmacy: [facility] Insurance: Amanda Clayton Prescription Benefit: yes Living Will/HPOA: Has HCPOA on file @ [facility]. Sig other, Karri, is HCPOA. Pt provided copy of HPOA, per her request. LNOK: significant other/Karri KAUR Living Arrangements: Patient lives with significant other, Karri, in a 1 story duplex with 2 steps and railing to enter. Patient states she is independent w/ADL's and manages her own insulin. She states Karri does most home mgmt tasks and some of her medications. Transportation: [facility] van, insurance transport ([facility]), Karri DME: Patient states she has shower chair, quad cane, walker, rollator, transfer wheelchair, medical alert, grab bars, glucometer with supplies, insulin with supplies at home. Pt does not have home O2 and does not have a pulse ox. Pt provided w/list of local DME companies and made aware [employer] [facility] Pt chooses [employer] as 1st preference of DME co, should she qualify for O2 @ discharge. SNF/HHC: Patient states she has been to [facility] in the past and states, I will never go back again. Pt states she is active w/[facility] for therapy and nursing. She would like to discharge home w/CHELSIE w/[facility] and declines list of other HHC agencies. Patient is active with Waiver program. She states she thinks her CM's name is Bell. She states she receives 14 meals/week thru [employer]. Heike BURRELL, made aware. PLAN: Home w/CHELSIE [facility] HHC. CM to follow for possible Home O2 @ d/c. Kierra BSN RN CM
--- NOTE | 2022-02-14 14:54 | CASEMGMT ---
Per RN CM patient has a counseling case manager with waiver program. SW called [facility] and spoke with Monique on the coverage line. Patient's counseling case manager is Bell [phone]. Patient gets 14 meals a week delivered by [employer] and patient has an emergency response button. They are also working on getting a ramp and walk in shower into patient's home. ASHANTI will follow and notify Bell when patient is being discharged. Heike Breaux MAKE UP GIRL SABRINA
[2022-02-14] MEDS: Furosemide 40 MG Tablet PO (17:08)
[2022-02-14] MEDS: Insulin Glargine-YFGN 100 UNIT/ML Pen 35 UNIT SC (22:24)
[2022-02-14] MEDS: Atorvastatin Calcium 40 MG Tablet PO (22:25)
[2022-02-14] MEDS: Sertraline 50 MG Tablet PO (22:25)
[2022-02-14] MEDS: Ferrous Sulfate 325 MG Tablet PO (22:25)
[2022-02-14 23:21] LABS: Bedside Glucose 228 mg/dL (74-106)
[2022-02-14] MEDS: traMADol 50 MG Tablet PO (23:23)
[2022-02-15] VITALS (14 sets, daily range): BP systolic 148–191; BP diastolic 70–92; PULSE 66–79; RESP 16–18; TEMP 36.6–37; O2SAT 89–97
[2022-02-15 05:24] LABS: Absolute Lymphocyte Count 1.17 X10^3/uL (0.83-4.51); Absolute Neutrophil Count 2.6 X10^3/uL (2.0-7.7); Basophil# 0.01 X10^3/uL; Basophil% 0.2 % (0-1); Eosinophil# 0.19 X10^3/uL; Eosinophils% 4.4 % (0-5); Hematocrit 25.2 % (37-47); Hemoglobin 7.8 g/dL (12.0-15.0); Lymphocyte # 1.17 X10^3/ul (0.83-4.51); Lymphocyte % 27.4 % (19-41); Mean Corpuscular Hgb 27.3 pg (27.0-32.0); Mean Corpuscular Volume 88.1 fL (81-99); Mean Platelet Vol. 10.4 fl (6.2-12.0); Monocyte# 0.33 X10^3/uL; Monocyte% 7.7 % (0-10); NRBC Flagged by Analyzer 0 % (0-5); Neutrophil # 2.56 X10^3/uL (2.7-7.7); Neutrophil % 60.1 % (47-70); Platelet Count 167 K/mm3 (150-450); RBC Distribution Width CV 15.9 % (11.6-14.6); RBC Distribution Width SD 51.9 fl (35.1-43.9); Red Blood Count 2.86 M/mm3 (4.2-5.4); White Blood Count 4.3 K/mm3 (4.4-11.0)
[2022-02-15] MEDS: Clonidine HCl 0.1 MG, Clonidine HCl 0.2 MG 0.3 MG PO ×3 (05:25→22:25)
[2022-02-15] MEDS: Ondansetron ODT 4 MG Tablet PO ×3 (05:25→22:25)
[2022-02-15 05:46] LABS: BUN 43 mg/dL (7-18); BUN/Creat Ratio 14.4 RATIO (10-20); Calcium,Total 8.3 mg/dL (8.5-10.1); Chloride 108 mmol/L (98-107); Creatinine, Serum 2.98 mg/dL (0.55-1.02); EST Glomerular Filtration Rate 17 mL/min (>60); Est Glom Filt Rate - Afr Amer 21 mL/min (>60); Estimated Creatinine Clearance 18.29 ml/min; Glucose 149 mg/dL (74-106); Potassium 4.5 mmol/L (3.5-5.1); Sodium Level 141 mmol/L (136-145)
[2022-02-15 05:47] LABS: Anion Gap 5 (5-15)
[2022-02-15] MEDS: dilTIAZem CD 180 MG Capsule PO (08:05)
[2022-02-15] MEDS: Furosemide 40 MG Tablet PO (08:05)
[2022-02-15] MEDS: traMADol 50 MG Tablet PO ×2 (08:09→22:26)
[2022-02-15] MEDS: Pregabalin 75 MG Capsule PO ×2 (08:09→22:26)
[2022-02-15 11:55] LABS: Anion Gap 5 (5-15); BUN 43 mg/dL (7-18); BUN/Creat Ratio 14.1 RATIO (10-20); Calcium,Total 8.6 mg/dL (8.5-10.1); Chloride 107 mmol/L (98-107); Creatinine, Serum 3.06 mg/dL (0.55-1.02); EST Glomerular Filtration Rate 17 mL/min (>60); Est Glom Filt Rate - Afr Amer 20 mL/min (>60); Estimated Creatinine Clearance 17.81 ml/min; Glucose 126 mg/dL (74-106); Potassium 4.8 mmol/L (3.5-5.1); Sodium Level 141 mmol/L (136-145)
--- NOTE | 2022-02-15 13:56 | PCM.PN.HOSP ---
Subjective Subjective Eating fairly well, no nausea. Overall improving Objective Data Objective Data Vital Signs: Vital Signs Temp Pulse Resp BP Pulse Ox O2 Del Method O2 Flow Rate 98.4 F 74 16 156/71 H 97 Room Air 2 02/15/22 10:00 02/15/22 10:00 02/15/22 10:00 02/15/22 10:00 02/15/22 10:00 02/15/22 10:00 02/14/22 14:00 Oxygen Flow Rate (L/min) 2 Oxygen Delivery Method Room Air Weight: 87.815 kg Body Mass Index (BMI) 32.2 Intake & Output: Intake and Output for Last 24 Hours 02/13/22 02/14/22 02/15/22 23:59 23:59 23:59 Intake Total 510 / 510 1327.4 / 1327.4 110 / 110 Output Total 600 / 2000 2450 / 2950 1550 / 1550 Balance -90 / -1490 -1122.6 / -1622.6 -1440 / -1440 Lab / Micro Data Result Diagrams: 02/15/22 05:03 02/15/22 11:24 Labs: Laboratory Results - last 24 hr 02/14/22 22:15: POC Glucose 228 H 02/15/22 05:03: WBC 4.3 L, RBC 2.86 L, Hgb 7.8 L, Hct 25.2 L, MCV 88.1, MCH 27.3, MCHC 31.0 L, RDW Std Deviation 51.9 H, RDW Coeff of Chris 15.9 H, Plt Count 167, MPV 10.4, Immature Gran % (Auto) 0.200, Neut % (Auto) 60.1, Lymph % (Auto) 27.4, [place] % (Auto) 7.7, Eos % (Auto) 4.4, Baso % (Auto) 0.2, Absolute Neuts (auto) 2.6, Absolute Lymphs (auto) 1.17, Nucleated RBC % 0 02/15/22 05:03: Sodium 141, Potassium 4.5, Chloride 108 H, Carbon Dioxide 28.0, Anion Gap 5, BUN 43 H, Creatinine 2.98 H, Estim Creat Clear Calc 18.29, Est GFR (MDRD) Af Amer 21 L, Est GFR (MDRD) Non-Af 17 L, BUN/Creatinine Ratio 14.4, Glucose 149 H, Calcium 8.3 L 02/15/22 11:24: Sodium 141, Potassium 4.8, Chloride 107, Carbon Dioxide 29.0, Anion Gap 5, BUN 43 H, Creatinine 3.06 H, Estim Creat Clear Calc 17.81, Est GFR (MDRD) Af Amer 20 L, Est GFR (MDRD) Non-Af 17 L, BUN/Creatinine Ratio 14.1, Glucose 126 H, Calcium 8.6 Radiography Diagnostic Testing: Radiology Impression Chest X-Ray 02/13/22 14:00 IMPRESSION: Mild degree of CHF with bibasilar atelectasis and small bilateral pleural effusions. Electronically Signed: Angel Manley MD at 14:26 EST , Physical Exam Const alert and no apparent distress Constitutional Narrative: Oriented HEENT normocephalic and head/scalp atraumatic Eyes Eyes Narrative: EOM grossly intact, anicteric Neck supple Resp normal respiratory effort Resp Narrative: Somewhat diminished at the bases Cardio regular rate and regular rhythm GI soft to palpation, non-tender and non-distended Extremity Extremity Narrative: Legs wrapped due to chronic edema Neuro moves all extremities Neuro Narrative: No overt focal deficits appreciated Psych Psych Narrative: Cooperative Assessment & Plan Assessment/Plan (1) Symptomatic anemia: (2) Chronic CHF (congestive heart failure): (3) Bilateral pleural effusion: PLAN: Plan 61-year-old female history of hypertension, diabetes, migraine, CKD stage IV, and orthostatic hypotension presented to [facility] 02/13 at the urging of her PCP due to abnormal labs. She been feeling short of breath that was worsened on exertion. Does have a history of iron deficiency anemia and was on oral iron supplement. In the ED hemoglobin was 7 with BNP of 294. Chest x-ray with mild degree of CHF and bibasilar atelectasis and small effusions. 1 unit of packed red blood cells given in the ED and she was admitted for management of acute on chronic heart failure as well as acute on chronic iron deficiency anemia. #Acute on chronic heart failure with preserved ejection fraction Evidence on x-ray with mild elevation in BNP and significant lower extremity edema On Lasix drip?given improvement will transition to p.o. Fluid restriction to 1500 cc daily I's and O's Last echo 2019 EF 65 no evidence of diastolic dysfunction and normal force, will obtain new echo Does follow with cardiology on an outpatient basis for her blood pressure but denied any known cardiac disease 02/15: Breathing significantly improving. Strongly feel better overall #Acute on chronic symptomatic anemia Hemoglobin of 7, most recent hemoglobin 02/09 was 7.4 On iron tablets No overt bleeding had been reported Holding aspirin, stool for occult blood 1 unit packed red blood cells with IV PPI Will consult GI if stool occult was positive 02/14: Hemoglobin increased to 8.0 after unit of blood, continue to monitor CBC. Iron panel within normal limits. #Type 2 diabetes mellitus: On Lantus 35 units nightly.? Insulin sliding scale.? Accu-Cheks ACH S. #Hyperlipidemia: On atorvastatin #CKD stage IV: Creatinine is 2.84 on admission which is around her baseline however her creatinine has been worsening, Lasix dose was decreased, will trend BMP. Follows with Dr. Terry as an outpatient, can consider consulting if kidney function worsens any further #Severe lymphedema: Follows up at wound care for compression wraps. DVT prophylaxis: SCDs.? No anticoagulation on account of anemia Charges/Coding Visit Charges Inpatient E&M: 79838 Subs Hosp L2
[2022-02-15] MEDS: Sertraline 50 MG Tablet PO (22:25)
[2022-02-15] MEDS: Ferrous Sulfate 325 MG Tablet PO (22:25)
[2022-02-15] MEDS: Insulin Glargine-YFGN 100 UNIT/ML Pen 35 UNIT SC (22:27)
[2022-02-15] MEDS: Atorvastatin Calcium 40 MG Tablet PO (22:27)
[2022-02-15 23:05] LABS: Bedside Glucose 202 mg/dL (74-106)
[2022-02-16] VITALS (12 sets, daily range): BP systolic 156–188; BP diastolic 74–85; PULSE 62–77; RESP 15–18; TEMP 36.1–36.3; O2SAT 96–98
[2022-02-16] MEDS: hydrALAZINE 20 MG/ML Vial 10 MG IV (03:36)
[2022-02-16] MEDS: 0.9% Saline Lock 10 ML Syringe IV (03:37)
[2022-02-16] MEDS: Clonidine HCl 0.1 MG, Clonidine HCl 0.2 MG 0.3 MG PO (05:29)
[2022-02-16] MEDS: Ondansetron ODT 4 MG Tablet PO (05:57)
[2022-02-16 06:30] LABS: Absolute Lymphocyte Count 1.22 X10^3/uL (0.83-4.51); Absolute Neutrophil Count 2.6 X10^3/uL (2.0-7.7); Basophil# 0.03 X10^3/uL; Basophil% 0.7 % (0-1); Eosinophil# 0.24 X10^3/uL; Eosinophils% 5.4 % (0-5); Hemoglobin 8.5 g/dL (12.0-15.0); Lymphocyte # 1.22 X10^3/ul (0.83-4.51); Lymphocyte % 27.5 % (19-41); Mean Corp Hgb Conc 32.7 g/dL (32-36); Mean Corpuscular Hgb 28.8 pg (27.0-32.0); Mean Corpuscular Volume 88.1 fL (81-99); Mean Platelet Vol. 10.7 fl (6.2-12.0); Monocyte# 0.34 X10^3/uL; Monocyte% 7.7 % (0-10); NRBC Flagged by Analyzer 0 % (0-5); Neutrophil # 2.59 X10^3/uL (2.7-7.7); Neutrophil % 58.5 % (47-70); Platelet Count 162 K/mm3 (150-450); RBC Distribution Width CV 15.7 % (11.6-14.6); RBC Distribution Width SD 50.4 fl (35.1-43.9); Red Blood Count 2.95 M/mm3 (4.2-5.4); White Blood Count 4.4 K/mm3 (4.4-11.0)
[2022-02-16 06:57] LABS: Anion Gap 5 (5-15); BUN 43 mg/dL (7-18); BUN/Creat Ratio 14.5 RATIO (10-20); Calcium,Total 8.3 mg/dL (8.5-10.1); Chloride 107 mmol/L (98-107); Creatinine, Serum 2.96 mg/dL (0.55-1.02); EST Glomerular Filtration Rate 17 mL/min (>60); Est Glom Filt Rate - Afr Amer 21 mL/min (>60); Estimated Creatinine Clearance 18.41 ml/min; Glucose 133 mg/dL (74-106); Potassium 4.2 mmol/L (3.5-5.1); Sodium Level 139 mmol/L (136-145)
[2022-02-16] MEDS: dilTIAZem CD 180 MG Capsule PO (07:59)
[2022-02-16] MEDS: Pantoprazole Sodium 40 MG Tablet PO (07:59)
[2022-02-16] MEDS: Furosemide 40 MG Tablet PO (07:59)
[2022-02-16] MEDS: Pregabalin 75 MG Capsule PO (08:08)
--- NOTE | 2022-02-16 10:02 | CASEMGMT ---
Per Tasneem POWERS, pt does not qualify for home oxygen. Laura at [facility] aware that pt to likely d/c home today, voices understanding. CHELSIE order placed. Pt voices no further questions/concerns/needs. Marialuisa POWERS CM
--- NOTE | 2022-02-16 10:04 | DCINST_ITS ---
Discharge Instructions Diet Discharge Diet: - (1.5 L fluid restriction) Activity Discharge Activity: Return to Normal Activity Follow Up Care Test Results: Test results from this visit will be discussed in further detail at your follow- up appointment, if applicable. Discharge Plan Admission Admit Date/Time: 02/13/22 15:04 Primary Reason for Your Visit: Shortness of breath Attending Provider: Halley Portillo Primary Care Provider: Dennys Serrano Consulting Providers: Alicia Oconnell Instructions Patient Instructions: ED Chronic Kidney Disease (CKD), ED Diet for Chronic Kidney Disease Additional Instructions / Restrictions: *Please take this with you to your next doctors appointment* ?Your Lasix dose will still be 40 mg daily been an additional medicine, hydrochlorothiazide 12.5mg which works in conjunction with the Lasix to help fluid overload as well as blood pressure. A prescription for the hydrochlorothiazide was sent to your preferred pharmacy on file ? It is important that you check your blood pressure daily. If you are systolic blood pressure (the top number) is consistently greater than 160 for 2 days please call your primary care physician. If you have any of the following please call your healthcare provider right away: Call your healthcare provider right away if any of these occur: * Blood pressure reaches a systolic (top number) of 180 or higher or diastolic (bottom number) of 110 or higher, emergency medical treatment is required. * Chest, arm, shoulder, neck, or upper back pain * Shortness of breath * Severe headache * Throbbing or rushing sound in the ears * Nosebleed that comes back or doesn't go away * Extreme drowsiness, confusion, or fainting * Dizziness or dizziness with spinning sensation (vertigo) * Weakness in an arm or leg or on one side of the face * Trouble speaking or seeing ? You will need to continue following with your kidney doctor ? Recommend obtaining blood work to check your kidney function (BMP) in 3 to 5 days. Please call your primary care physician upon discharge to schedule a hospital follow-up appointment within 1 week and to obtain order for lab work. -Weigh yourself every day. A sudden weight gain can mean you are retaining fluid. Weigh yourself at the same time of day and in the same kind of clothes. Ideally, weigh yourself first thing in the morning after you empty your bladder, but before you eat breakfast. -Please call your physician if your weight goes up by more than 2 pounds in 1 day or 5 pounds in 1 week. This can be a sign that you are retaining more fluid than you should be. Clues to weight gain include checking your ankles for swelling, or noticing you are short of breath when you lie down -Please limit your sodium intake to less than 3 g/day. Here are tips: Limit canned, dried, packaged, and fast foods. Don't add salt to your food at the table. Season foods with herbs instead of salt when you cook. When you eat out, ask that the training development director not add any salt to your dish. Don't eat fried or greasy foods. Be careful of bottled beverages. They can contain a lot of salt -Call 911 right away if you have: -Severe shortness of breath, such that you can't catch your breath even while resting -Severe chest pain that does not resolve with rest or nitroglycerin -[place], foamy mucus with cough and shortness of breath -An ongoing rapid or irregular heartbeat -Passing out or fainting -Stroke symptoms such as sudden numbness or weakness on one side of your face, arm, or leg or sudden confusion, trouble speaking or vision changes ?If you have any concerning signs or symptoms please proceed to the nearest emergency department or call 911 Discharge Orders/Prescriptions Prescriptions: New hydrochlorothiazide 12.5 mg Capsule 12.5 mg PO DAILY 30 Days Qty: 30 0RF Continued diltiazem HCl 180 MG capsule 180 mg PO DAILY pantoprazole 40 MG tablet 40 mg PO DAILY atorvastatin 40 MG tablet 40 mg PO QHS aspirin 81 MG tablet,chewable 81 mg PO QHS clonidine HCl 0.3 MG tablet 0.3 mg PO TID insulin lispro [Humalog KwikPen Insulin] 100 unit/mL insulin pen 8 unit subcut TIDCM tramadol 50 mg tablet 50 mg PO BID PRN (Reason: Pain) sertraline 50 mg tablet 50 mg PO QHS insulin glargine-yfgn 100 unit/mL (3 mL) insulin pen 35 unit subcut QHS ondansetron 4 mg tablet,disintegrating 4 mg PO Q8H acetaminophen [Tylenol] 325 mg tablet 650 mg PO Q6H PRN PRN (Reason: Pain) ferrous sulfate [FeroSul] 325 mg (65 mg iron) tablet 325 mg PO QHS polyethylene glycol 3350 17 gram powder in packet 17 g PO DAILY PRN (Reason: Constipation) furosemide [Lasix] 40 mg tablet 40 mg PO DAILY Qty: 30 0RF Changed pregabalin 75 mg capsule 75 mg PO BID Qty: 60 0RF Referrals / Follow Up: Aubree Terry DO [Med Staff - Consulting] - See Referral Note (Please follow-up with Dr. Terry, your kidney doctor, upon discharge.) Dennys Serrano MD [Primary Care Provider] - Within 1 Week Disposition Disposition (needs filled in before D/C Order can be placed): Home Health Service
--- NOTE | 2022-02-16 10:23 | DS.PCM_ITS ---
Providers Date of Admission: 02/13/22 Date of Discharge: 02/16/22 Primary Care Physician: Dr. Dennys Serrano MD Consultations 02/13/22 15:57 Consult: Onc/Wound/group program manager Routine Comment: Reason for Consult:: left heel wound; bilateral uzma boots in place on admission Comments:: follows at wound center Reason For Visit: ACUTE ON CHRONIC HEART FAILURE /SYMPTOMATIC ANEMIA Diagnosis Discharge Diagnosis (1) Symptomatic anemia: Status: Acute Code(s): D64.9 - Anemia, unspecified (2) Chronic CHF (congestive heart failure): Status: Chronic Code(s): I50.9 - Heart failure, unspecified (3) Bilateral pleural effusion: Status: Acute Code(s): J90 - Pleural effusion, not elsewhere classified Plan #Acute on chronic heart failure with preserved ejection fraction #Acute on chronic symptomatic anemia #Type 2 diabetes mellitus #Hyperlipidemia #CKD stage IV #Severe lymphedema Medications at Discharge Home Medications diltiazem HCl 180 mg capsule,extended release 24 hr 180 mg PO DAILY blood pressure 12/17/18 aspirin 81 mg chewable tablet 81 mg PO QHS HEART HEALTH 12/15/19 atorvastatin 40 mg tablet 40 mg PO QHS CHOLESTEROL 12/15/19 pantoprazole 40 mg tablet,delayed release 40 mg PO DAILY GERD 12/15/19 clonidine HCl 0.3 mg tablet 0.3 mg PO TID BLOOD PRESSURE 01/06/22 insulin lispro 100 unit/mL subcutaneous pen (Humalog KwikPen (U-100) Insulin) 8 unit subcut TIDCM diabetes 01/06/22 sertraline 50 mg tablet 50 mg PO QHS DEPRESSION 01/06/22 tramadol 50 mg tablet 50 mg PO BID PRN Pain 01/06/22 insulin glargine-yfgn 100 unit/mL (3 mL) subcutaneous pen 35 unit subcut QHS DIABETES 02/02/22 acetaminophen 325 mg tablet (Tylenol) 650 mg PO Q6H PRN PRN Pain 02/13/22 ferrous sulfate 325 mg (65 mg iron) tablet (FeroSul) 325 mg PO QHS SUPPLEMENT 02/13/22 ondansetron 4 mg disintegrating tablet 4 mg PO Q8H NAUSEA 02/13/22 polyethylene glycol 3350 17 gram oral powder packet 17 g PO DAILY PRN Constipation 02/13/22 furosemide 40 mg tablet (Lasix) 40 mg PO DAILY EDEMA #30 tabs 02/16/22 hydrochlorothiazide 12.5 mg capsule 12.5 mg PO DAILY 30 days #30 caps 02/16/22 pregabalin 75 mg capsule 75 mg PO BID PAIN #60 caps 02/16/22 Hospital Course Summary of Care Provided Minutes Spent on Discharge: 32 Hospital Course: 61-year-old female history of hypertension, type 2 diabetes mellitus, migraine, CKD stage IV, and orthostatic hypotension presented to [facility] [place] 02/13 at the urging of her PCP due to abnormal labs. She had increasing shortness of breath that was worse on exertion and additionally does have a history of iron deficiency anemia and was on oral iron supplement but was noted to have a lower hemoglobin. In the ED hemoglobin was 7 with BNP of 294. Chest x-ray with mild degree of CHF and bibasilar atelectasis and small effusions. 1 unit of packed red blood cells given in the ED and she was placed on a Lasix drip and she was admitted for management of acute on chronic heart failure as well as acute on chronic iron deficiency anemia. She improved significantly was transitioned to oral Lasix though with the diuresis her creatinine did increase but improved again with Lasix adjustment. Was persistently hypertensive so HCTZ was added to home regimen. Additionally he moglobin responded well to 1 unit of packed red blood cells and has been stable since that time with no evidence of bleeding. Recommended follow-up lab work with PCP in 3 to 5 days to monitor kidney function. Instructions provided for patient as below: *Please take this with you to your next doctors appointment* ?Your Lasix dose will still be 40 mg daily been an additional medicine, hydrochlorothiazide 12.5mg which works in conjunction with the Lasix to help fluid overload as well as blood pressure.? A prescription for the hydrochlorothiazide was sent to your preferred pharmacy on file ? It is important that you check your blood pressure daily.? If you are systolic blood pressure (the top number) is consistently greater than 160 for 2 days please call your primary care physician.? If you have any of the following please call your healthcare provider right away: Call your healthcare provider right away if any of these occur: * Blood pressure reaches a systolic (top number) of 180 or higher or diastolic (bottomnumber) of 110 or higher, emergency medical treatment is required. * Chest, arm, shoulder, neck, or upper back pain * Shortness of breath * Severe headache * Throbbing or rushing sound in the ears * Nosebleed that comes back or doesn't go away * Extreme drowsiness, confusion, or fainting * Dizziness or dizziness with spinning sensation (vertigo) * Weakness in an arm or leg or on one side of the face * Trouble speaking or seeing? You will need to continue following with your kidney doctor ? Recommend obtaining blood work to check your kidney function (BMP) in 3 to 5 days.? Please call your primary care physician upon discharge to schedule a hospital follow-up appointment within 1 week and to obtain order for lab work. -Weigh yourself every day. A sudden weight gain can mean you are retaining fluid. Weigh yourself at the same time of day and in the same kind of clothes. Ideally, weigh yourself first thing in the morning after you empty your bladder, but before you eat breakfast. -Please call your physician if your weight goes up by more than 2 pounds in 1 day or 5 pounds in 1 week. This can be a sign that you are retaining more fluid than you should be. Clues to weight gain include checking your ankles for swelling, or noticing you are short of breath when you lie down -Please limit your sodium intake to less than 3 g/day. Here are tips: Limit canned, dried, packaged, and fast foods. Don't add salt to your food at the table. Season foods with herbs instead of salt when you cook. When you eat out, ask that the world renowned chef and restaurant owner not add any salt to your dish. Don't eat fried or greasy foods. Be careful of bottled beverages. They can contain a lot of salt -Call 911 right away if you have: -Severe shortness of breath, such that you can't catch your breath even while resting -Severe chest pain that does not resolve with rest or nitroglycerin -[place], foamy mucus with cough and shortness of breath -An ongoing rapid or irregular heartbeat -Passing out or fainting -Stroke symptoms such as sudden numbness or weakness on one side of your face, arm, or leg or sudden confusion, trouble speaking or vision changes ?If you have any concerning signs or symptoms please proceed to the nearest emergency department or call 911 Physical Exam Const alert and no apparent distress Constitutional Narrative: Oriented HEENT normocephalic and head/scalp atraumatic Eyes Eyes Narrative: EOM grossly intact, anicteric Neck supple Resp normal respiratory effort Cardio regular rate and regular rhythm GI soft to palpation, non-tender and non-distended Extremity Extremity Narrative: Legs wrapped due to chronic edema Neuro moves all extremities Neuro Narrative: No overt focal deficits appreciated Psych Psych Narrative: Cooperative Weight / BMI Weight Weight: 86.4 kg Body Mass Index (BMI) 32.2 ABG / Lab / Microbiology Data Result Diagrams: 02/16/22 05:48 02/16/22 05:48 Laboratory: Laboratory Results - last 24 hr 02/15/22 11:24: Sodium 141, Potassium 4.8, Chloride 107, Carbon Dioxide 29.0, A nion Gap 5, BUN 43 H, Creatinine 3.06 H, Estim Creat Clear Calc 17.81, Est GFR (MDRD) Af Amer 20 L, Est GFR (MDRD) Non-Af 17 L, BUN/Creatinine Ratio 14.1, Glucose 126 H, Calcium 8.6 02/15/22 22:17: POC Glucose 202 H 02/16/22 05:48: WBC 4.4, RBC 2.95 L, Hgb 8.5 L, Hct 26.0 L, MCV 88.1, MCH 28.8, MCHC 32.7 D, RDW Std Deviation 50.4 H, RDW Coeff of Chris 15.7 H, Plt Count 162, MPV 10.7, Immature Gran % (Auto) 0.200, Neut % (Auto) 58.5, Lymph % (Auto) 27.5, Luce % (Auto) 7.7, Eos % (Auto) 5.4 H, Baso % (Auto) 0.7, Absolute Neuts (auto) 2.6, Absolute Lymphs (auto) 1.22, Nucleated RBC % 0 02/16/22 05:48: Sodium 139, Potassium 4.2, Chloride 107, Carbon Dioxide 27.0, Anion Gap 5, BUN 43 H, Creatinine 2.96 H, Estim Creat Clear Calc 18.41, Est GFR (MDRD) Af Amer 21 L, Est GFR (MDRD) Non-Af 17 L, BUN/Creatinine Ratio 14.5, Glucose 133 H, Calcium 8.3 L, Magnesium 2.0 Radiography Diagnostic Testing: Radiology Impression Chest X-Ray 02/13/22 14:00 IMPRESSION: Mild degree of CHF with bibasilar atelectasis and small bilateral pleural effusions. Electronically Signed: Angel Manley MD at 14:26 EST , D/C Instructions Discharge Diet: - (1.5 L fluid restriction) Meaningful Use Info Meaningful Use Diagnoses (Choose all that apply): CHF CHF AMANDA/ARB ordered at discharge?: No Reason AMANDA/ARB not ordered?: Worsening renal function Documented LVEF (%): 45 Discharge Plan Admission Admit Date/Time: 02/13/22 15:04 Primary Reason for Your Visit: Shortness of breath Attending Provider: Halley Portillo Primary Care Provider: Dennys Serraon Consulting Providers: Alicia Oconnell Instructions Patient Instructions: ED Chronic Kidney Disease (CKD), ED Diet for Chronic Kidney Disease Additional Instructions / Restrictions: *Please take this with you to your next doctors appointment* ?Your Lasix dose will still be 40 mg daily been an additional medicine, hydrochlorothiazide 12.5mg which works in conjunction with the Lasix to help fluid overload as well as blood pressure. A prescription for the hydrochlorot hiazide was sent to your preferred pharmacy on file ? It is important that you check your blood pressure daily. If you are systolic blood pressure (the top number) is consistently greater than 160 for 2 days please call your primary care physician. If you have any of the following plea se call your healthcare provider right away: Call your healthcare provider right away if any of these occur: * Blood pressure reaches a systolic (top number) of 180 or higher or diastolic (bottom number) of 110 or higher, emergency medical treatment is required. * Chest, arm, shoulder, neck, or upper back pain * Shortness of breath * Severe headache * Throbbing or rushing sound in the ears * Nosebleed that comes back or doesn't go away * Extreme drowsiness, confusion, or fainting * Dizziness or dizziness with spinning sensation (vertigo) * Weakness in an arm or leg or on one side of the face * Trouble speaking or seeing ? You will need to continue following with your kidney doctor ? Recommend obtaining blood work to check your kidney function (BMP) in 3 to 5 days. Please call your primary care physician upon discharge to schedule a hospital follow-up appointment within 1 week and to obtain order for lab work. -Weigh yourself every day. A sudden weight gain can mean you are retaining fluid. Weigh yourself at the same time of day and in the same kind of clothes. Ideally, weigh yourself first thing in the morning after you empty your bladder, but before you eat breakfast. -Please call your physician if your weight goes up by more than 2 pounds in 1 day or 5 pounds in 1 week. This can be a sign that you are retaining more fluid than you should be. Clues to weight gain include checking your ankles for swelling, or noticing you are short of breath when you lie down -Please limit your sodium intake to less than 3 g/day. Here are tips: Limit canned, dried, packaged, and fast foods. Don't add salt to your food at the table. Season foods with herbs instead of salt when you cook. When you eat out, ask that the world renowned chef and restaurant owner not add any salt to your dish. Don't eat fried or greasy foods. Be careful of bottled beverages. They can contain a lot of salt -Call 911 right away if you have: -Severe shortness of breath, such that you can't catch your breath even while resting -Severe chest pain that does not resolve with rest or nitroglycerin -[place], foamy mucus with cough and shortness of breath -An ongoing rapid or irregular heartbeat -Passing out or fainting -Stroke symptoms such as sudden numbness or weakness on one side of your face, arm, or leg or sudden confusion, trouble speaking or vision changes ?If you have any concerning signs or symptoms please proceed to the nearest emergency department or call 911 Discharge Orders/Prescriptions Prescriptions: New hydrochlorothiazide 12.5 mg Capsule 12.5 mg PO DAILY 30 Days Qty: 30 0RF Continued diltiazem HCl 180 MG capsule 180 mg PO DAILY pantoprazole 40 MG tablet 40 mg PO DAILY atorvastatin 40 MG tablet 40 mg PO QHS aspirin 81 MG tablet,chewable 81 mg PO QHS clonidine HCl 0.3 MG tablet 0.3 mg PO TID insulin lispro [Humalog KwikPen Insulin] 100 unit/mL insulin pen 8 unit subcut TIDCM tramadol 50 mg tablet 50 mg PO BID PRN (Reason: Pain) sertraline 50 mg tablet 50 mg PO QHS insulin glargine-yfgn 100 unit/mL (3 mL) insulin pen 35 unit subcut QHS ondansetron 4 mg tablet,disintegrating 4 mg PO Q8H acetaminophen [Tylenol] 325 mg tablet 650 mg PO Q6H PRN PRN (Reason: Pain) ferrous sulfate [FeroSul] 325 mg (65 mg iron) tablet 325 mg PO QHS polyethylene glycol 3350 17 gram powder in packet 17 g PO DAILY PRN (Reason: Constipation) furosemide [Lasix] 40 mg tablet 40 mg PO DAILY Qty: 30 0RF Changed pregabalin 75 mg capsule 75 mg PO BID Qty: 60 0RF Referrals / Follow Up: Aubree Terry DO [Med Staff - Consulting] - See Referral Note (Please follow-up with Dr. Terry, your kidney doctor, upon discharge.) Dennys Serrano MD [Primary Care Provider] - Within 1 Week Disposition Disposition (needs filled in before D/C Order can be placed): Home Health Service Charges/Coding Visit Charges Inpatient E&M: 57858 Disch Hosp
[2022-02-16] MEDS: hydroCHLOROthiazide 12.5mg 12.5 MG PO (11:30)
--- NOTE | 2022-02-16 11:41 | PHA.DC.MC ---
Pharmacy Service has performed discharge medication reconciliation and counseling for this patient. The patient was counseled on the following discharge medications and changes in medications for homegoing were reviewed. 1. LASIX 2. HCTZ The Reason for Use, instructions for use, and potential side effects were reviewed for all new medications. The patient's questions regarding all of their medications were answered. The patient was able to verbally demonstrate an understanding of their discharge medications. Home Medications diltiazem HCl 180 mg capsule,extended release 24 hr 180 mg PO DAILY blood pressure 12/17/18 aspirin 81 mg chewable tablet 81 mg PO QHS HEART HEALTH 12/15/19 atorvastatin 40 mg tablet 40 mg PO QHS CHOLESTEROL 12/15/19 pantoprazole 40 mg tablet,delayed release 40 mg PO DAILY GERD 12/15/19 clonidine HCl 0.3 mg tablet 0.3 mg PO TID BLOOD PRESSURE 01/06/22 insulin lispro 100 unit/mL subcutaneous pen (Humalog KwikPen (U-100) Insulin) 8 unit subcut TIDCM diabetes 01/06/22 sertraline 50 mg tablet 50 mg PO QHS DEPRESSION 01/06/22 tramadol 50 mg tablet 50 mg PO BID PRN Pain 01/06/22 insulin glargine-yfgn 100 unit/mL (3 mL) subcutaneous pen 35 unit subcut QHS DIABETES 02/02/22 acetaminophen 325 mg tablet (Tylenol) 650 mg PO Q6H PRN PRN Pain 02/13/22 ferrous sulfate 325 mg (65 mg iron) tablet (FeroSul) 325 mg PO QHS SUPPLEMENT 02/13/22 ondansetron 4 mg disintegrating tablet 4 mg PO Q8H NAUSEA 02/13/22 polyethylene glycol 3350 17 gram oral powder packet 17 g PO DAILY PRN Constipation 02/13/22 furosemide 40 mg tablet (Lasix) 40 mg PO DAILY EDEMA #30 tabs 02/16/22 hydrochlorothiazide 12.5 mg capsule 12.5 mg PO DAILY 30 days #30 caps 02/16/22 pregabalin 75 mg capsule 75 mg PO BID PAIN #60 caps 02/16/22 The patient's discharge medication list was reviewed for discrepancies and discrepancies were resolved. Patient counselled by Kristin Sandhu, MichaelD Candidate
--- NOTE | 2022-02-19 08:47 | CASEMGMT ---
[employer] TC to pt. Pt recently DC. PEDRO long 4. Pt answered the call. Navigator introduced self and role. Pt stated she is trying to move around better. Pt has been up using the rollator. Pt stated prior to her recent hospital stay, she hadn't been able to get off the couch. Pt is active with [facility] including SN and therapy. Pt feels the hospital and the HHC have been awesome. Pt denied any current needs. Pt thanked Navigator for calling.
== END 2022-02-16 11:48 | disposition home health service (06) | DRG 291 ==
LOC: ED 14:16 → PCU 15:13
PROVIDERS: Admitting Provider Student in an Organized Health Care Education/Training Program; Emergency Provider Emergency Medicine; PCP Family Medicine; Visit Provider Internal Medicine
DX: I13.0 Hypertensive heart and chronic kidney disease with heart failure and stage 1 through stage 4 chronic kidney disease, or unspecified chronic kidney disease (principal); I50.33 Acute on chronic diastolic (congestive) heart failure; J90 Pleural effusion, not elsewhere classified; N18.4 Chronic kidney disease, stage 4 (severe); D63.1 Anemia in chronic kidney disease; E11.22 Type 2 diabetes mellitus with diabetic chronic kidney disease; D50.9 Iron deficiency anemia, unspecified; E78.00 Pure hypercholesterolemia, unspecified; Z79.4 Long term (current) use of insulin; I89.0 Lymphedema, not elsewhere classified; G89.4 Chronic pain syndrome; Z66 Do not resuscitate; Z79.82 Long term (current) use of aspirin
CPT/HCPCS: 36415; 71046; 80048; 80053; 82728; 82962; 83540; 83550; 83735; 83880; 84484; 85025; 85027; 86850; 86900; 86901; 86920; 93005; 93306; 97110; 97162; 97166; 97530; 97535; 97802; 99285; P9016; A4216; J1940; J2405

== ENCOUNTER 2022-02-19 17:44 | Outpatient (RCR) | payer MEDICARE, MEDICAID, SELFPAY ==
[2022-02-19 18:04] LABS: Anion Gap 11 (5-15); BUN 48 mg/dL (7-18); BUN/Creat Ratio 15.3 RATIO (10-20); Calcium,Total 8.6 mg/dL (8.5-10.1); Chloride 106 mmol/L (98-107); Creatinine, Serum 3.14 mg/dL (0.55-1.02); EST Glomerular Filtration Rate 16 mL/min (>60); Est Glom Filt Rate - Afr Amer 20 mL/min (>60); Glucose 61 mg/dL (74-106); Potassium 4.7 mmol/L (3.5-5.1); Sodium Level 140 mmol/L (136-145)
== END 2022-02-28 18:00 | disposition home or self-care (01) ==
LOC: HHLAB 17:44
PROVIDERS: PCP Family Medicine; Referring Provider Family Medicine; Visit Provider Family Medicine
DX: N39.0 Urinary tract infection, site not specified (principal); Z91.81 History of falling
CPT/HCPCS: 80048

== ENCOUNTER 2022-02-25 10:57 | Inpatient (IN) | payer MEDICARE, MEDICAID, SELFPAY ==
[2022-02-25] VITALS (9 sets, daily range): BP systolic 152–172; BP diastolic 68–89; PULSE 77–93; RESP 12–19; TEMP 36.5–36.7; O2SAT 91–99; BMI 30.7; BMI 30.9
--- NOTE | 2022-02-25 11:11 | EKG12_ITS ---
Test Reason : GENERAL ILLNESS Blood Pressure : / mmHG Vent. Rate : 090 BPM Atrial Rate : 090 BPM P-R Int : 202 ms QRS Dur : 086 ms QT Int : 378 ms P-R-T Axes : 063 041 057 degrees QTc Int : 462 ms Normal sinus rhythm Normal ECG Confirmed by YUMIKO AMEZCUA, TOMAS ([id number]), editor newspaper RAFI DOMINGO ([id number]) on 02/27/2022 11:10:17 AM Referred By: Confirmed By:TOMAS CALDERON MD
[2022-02-25] MEDS: Ondansetron 4 MG/2 ML Vial IV (11:15)
[2022-02-25] MEDS: 0.9% Normal Saline 1,000 ML 999 ML IV ×2 (11:15→12:24)
--- NOTE | 2022-02-25 11:15 | RAD_ITS ---
EXAM: XR CHEST, 1 VIEW CLINICAL INDICATION: weakness TECHNIQUE: Frontal view of the chest. This report was created using [employer] report generation technology. COMPARISON: XR Chest dated 02/13/2022 FINDINGS: LUNGS AND PLEURAL SPACES: Resolving bilateral pleural effusions and pulmonary vascular congestion. Mild residual bibasilar atelectasis. No pneumothorax. HEART: Stable mild cardiomegaly. MEDIASTINUM: No mediastinal or hilar mass. BONES/JOINTS: No acute abnormality. SOFT TISSUES: Normal. RAD/Chest 1 View (Portable) IMPRESSION: Stable cardiomegaly. Resolving bilateral pleural effusions and pulmonary vascular congestion. Mild residual bibasilar atelectasis. Electronically Signed: Robert Espino MD at 11:37 EST ,
--- NOTE | 2022-02-25 11:15 | EX.ED.DYSGE1 ---
HPI <MARIE Hardy - Last Filed: 02/25/22 13:55> History of Present Illness Chief Complaint: General Illness Narrative Narrative: 61-year-old female with PMH of HTN, DM2, CKD, CHF presents with weakness, nausea, and elevated blood sugars since this morning. Per EMS it was 431. Patient states she takes insulin shots but cannot provide details. She vomited once this morning. She denies chest pain, shortness of breath, or URI symptoms. No abdominal pain or urinary symptoms. PFSH <MARIE Hardy - Last Filed: 02/25/22 13:55> PFSH Medical History Cardiology follow-up encounter Chronic pain syndrome Closed intertrochanteric fracture of left hip Diabetes Dietary restriction Essential hypertension Excessive bleeding Fall Gastric reflux High cholesterol History of echocardiogram History of edema History of orthostatic hypotension History of stress test HLD (hyperlipidemia) HTN (hypertension) Hx of orthostatic hypotension Injury of head and neck Insulin dependent diabetes mellitus Low iron Malnutrition Migraine headache Migraine without aura Non-smoker Post-concussion syndrome Symptomatic anemia Syncope Transfusion of blood during current hospitalisation Type II diabetes mellitus Vertigo Vomiting Wears glasses Home Medications diltiazem HCl 180 mg capsule,extended release 24 hr 180 mg PO DAILY blood pressure 12/17/18 [History Last Taken 02/13/21] aspirin 81 mg chewable tablet 81 mg PO QHS HEART HEALTH 12/15/19 [History Last Taken 02/12/22] atorvastatin 40 mg tablet 40 mg PO QHS CHOLESTEROL 12/15/19 [History Last Taken 02/12/22] pantoprazole 40 mg tablet,delayed release 40 mg PO DAILY GERD 12/15/19 [History Last Taken 02/13/22] clonidine HCl 0.3 mg tablet 0.3 mg PO TID BLOOD PRESSURE 01/06/22 [History Last Taken 02/13/22] insulin lispro 100 unit/mL subcutaneous pen (Humalog KwikPen (U-100) Insulin) 8 unit subcut TIDCM diabetes 01/06/22 [History Last Taken 02/13/22] sertraline 50 mg tablet 50 mg PO QHS DEPRESSION 01/06/22 [History Last Taken 02/12/22] tramadol 50 mg tablet 50 mg PO BID PRN Pain 01/06/22 [History Last Taken 02/12/22] insulin glargine-yfgn 100 unit/mL (3 mL) subcutaneous pen 35 unit subcut QHS DIABETES 02/02/22 [History Last Taken 02/12/22] ferrous sulfate 325 mg (65 mg iron) tablet (FeroSul) 325 mg PO QHS SUPPLEMENT 02/13/22 [History Last Taken 02/12/22] ondansetron 4 mg disintegrating tablet 4 mg PO Q8H NAUSEA 02/13/22 [History Last Taken 1 Week Ago ~02/06/22] polyethylene glycol 3350 17 gram oral powder packet 17 g PO DAILY PRN Constipation 02/13/22 [History Last Taken Unknown] furosemide 40 mg tablet (Lasix) 40 mg PO DAILY EDEMA #30 tabs 02/16/22 [Rx Last Taken 02/13/22] pregabalin 75 mg capsule 50 mg PO BID PAIN 02/25/22 [History Last Taken Unknown] Allergy/AdvReac Type Severity Reaction Status Date / Time metformin AdvReac Diarrhea Verified 02/09/22 14:58 Family History Mother Hypertension Father Cancer lymphoma, leukemia Emphysema of lung Grandmother Diabetes Surgical History History of cholecystectomy History of esophagogastroduodenoscopy (EGD) History of mandibular surgery Hx of colonoscopy Social History household members: significant other Smoking Status: Never smoker alcohol intake: never substance use type: does not use ROS <MARIE Hardy - Last Filed: 02/25/22 13:55> ROS ED ROS Narrative Constitutional: Positive for malaise. Negative for fever, chills. Eyes: Negative for visual change. ENT: Negative for sore throat, ear pain, rhinorrhea. CVS: Negative for palpitations, chest pain, syncope. Respiratory: Negative for shortness of breath, cough, orthopnea. GI: Positive for nausea. Negative for abdominal pain, vomiting, diarrhea, constipation, melena, hematochezia. : Negative for dysuria, hematuria or frequency. Neuro: Negative for headache, motor/sensory dysfunction. Skin: Negative for rash, abscess, or wound. Musc: Negative for joint pain, swelling, trauma. Heme: Negative for easy bruising, bleeding, lymphadenopathy. EXAM <MARIE Hardy - Last Filed: 02/25/22 13:55> Physical Exam Narrative Exam Narrative: CONST: Patient appears disheveled, sitting in no acute distress. EYES: Normal inspection. ENT: Normal inspection, dry mucous membranes. NECK: Normal inspection. RESP: No respiratory distress, CTAB. CVS: Regular rate and rhythm, no murmur, no gallop. ABD: Soft and nontender, no guarding or rebound, nondistended. SKIN: Color normal, no rash, warm, dry, intact. EXTREMITIES: Daniel wraps bilateral lower extremities with trace pedal edema. NEURO: Oriented x4. PSYCH: Normal affect. Const Vital Signs: 02/25/22 11:05 02/25/22 11:07 02/25/22 11:08 Temperature 98.1 F 98.1 F Temperature Source Oral Oral Pulse Rate 93 92 Respiratory Rate 12 15 Respiratory Pattern Normal Blood Pressure 172/89 H 172/89 H Blood Pressure Mean 116 116 Pulse Ox 91 92 Oxygen Delivery Method Room Air Room Air Oxygen Flow Rate (L/min) 02/25/22 11:49 02/25/22 12:03 02/25/22 12:03 Temperature 97.8 F Temperature Source Oral Pulse Rate 88 88 Respiratory Rate 19 H 19 H Respiratory Pattern Blood Pressure 159/76 H 159/76 H Blood Pressure Mean 103 103 Pulse Ox 96 96 96 Oxygen Delivery Method Nasal Cannula Nasal Cannula Nasal Cannula Oxygen Flow Rate (L/min) 2 2 2 02/25/22 13:00 Temperature 97.7 F L Temperature Source Oral Pulse Rate 84 Respiratory Rate 14 Respiratory Pattern Blood Pressure 152/68 H Blood Pressure Mean 96 Pulse Ox 98 Oxygen Delivery Method Nasal Cannula Oxygen Flow Rate (L/min) 3 <Dr. Mitesh Magana MD - Last Filed: 02/25/22 11:31> Physical Exam Const Vital Signs: 02/25/22 11:05 02/25/22 11:07 02/25/22 11:08 Temperature 98.1 F 98.1 F Temperature Source Oral Oral Pulse Rate 93 92 Respiratory Rate 12 15 Respiratory Pattern Normal Blood Pressure 172/89 H 172/89 H Blood Pressure Mean 116 116 Pulse Ox 91 92 Oxygen Delivery Method Room Air Room Air Oxygen Flow Rate (L/min) 02/25/22 11:49 02/25/22 12:03 02/25/22 12:03 Temperature 97.8 F Temperature Source Oral Pulse Rate 88 88 Respiratory Rate 19 H 19 H Respiratory Pattern Blood Pressure 159/76 H 159/76 H Blood Pressure Mean 103 103 Pulse Ox 96 96 96 Oxygen Delivery Method Nasal Cannula Nasal Cannula Nasal Cannula Oxygen Flow Rate (L/min) 2 2 2 02/25/22 13:00 Temperature 97.7 F L Temperature Source Oral Pulse Rate 84 Respiratory Rate 14 Respiratory Pattern Blood Pressure 152/68 H Blood Pressure Mean 96 Pulse Ox 98 Oxygen Delivery Method Nasal Cannula Oxygen Flow Rate (L/min) 3 [facility] <MARIE Hardy - Last Filed: 02/25/22 13:55> [facility] Narrative Medical decision making narrative: Patient presents with malaise, nausea and vomiting, and hyperglycemia. She appears chronically ill but nontoxic. Vital signs are within normal limits. She has dry mucous membranes. Heart is regular. Lungs clear. Abdomen soft and nontender. She is moving all extremities and neurologically intact. She was given IV fluids and DKA work-up initiated. She has a new leukocytosis of 14.1, stable anemia at 8.7. Glucose is 460 with moderate ketones but normal anion gap. She also is dehydrated with a new ALMA at 4.3 (runs around 3 at baseline). Potassium is 5.4 but EKG shows no hyperkalemic changes. Straight catheterized UA positive for UTI. He was treated with IV fluids, Zofran, Rocephin, and 10 units of Humalog and will be admitted. I have personally performed a face to face assessment of the patient and have reviewed the VANCE Note. I performed a substantive portion of the visit including all aspects of the following. My richardson findings include: History is [61-year-old diabetic female evaluated with her physician assistant front end manager. Patient with elevated blood sugar and has not felt well today. Denies any fever. No dysuria. Denies any vomiting or diarrhea. No cough or shortness of breath. Patient lives at home.] Exam is [61-year-old female. Vital signs are stable and afebrile. She does not look septic or toxic. She is in no acute distress. Clinically she does look dehydrated. Dry mucous membranes. H EENT exam unremarkable other than dry mucous membranes. Neck tender no JVD. Lungs clear to auscultation. Heart regular rhythm rate about 90 no murmur. Abdomen soft nontender. Moving all 4 extremities. Trace edema both lower extremities with wraps on. Neurologically she is awake alert. Answering questions and following commands.] Medical Decision Making [61-year-old with elevated blood sugar in the 400s. Screening labs will be obtained with a urinalysis, EKG serum ketones. She will be treated with a liter normal saline.] Other additions or changes: [None] Lab Data Labs: Laboratory Results - last 24 hr 02/25/22 02/25/22 02/25/22 11:15 11:15 11:15 WBC 14.1 H RBC 3.16 L Hgb 8.7 L Hct 27.3 L MCV 86.4 MCH 27.5 MCHC 31.9 L RDW Std Deviation 48.2 H RDW Coeff of Chris 15.1 H Plt Count 288 MPV 10.8 Immature Gran % (Auto) 0.500 Neut % (Auto) 91.6 H Lymph % (Auto) 4.3 L [place] % (Auto) 3.1 Eos % (Auto) 0.1 Baso % (Auto) 0.4 Absolute Neuts (auto) 12.9 H Absolute Lymphs (auto) 0.61 L Nucleated RBC % 0 Sodium 137 Potassium 5.4 H Chloride 104 Carbon Dioxide 22.0 Anion Gap 11 BUN 58 H Creatinine 4.30 H Estim Creat Clear Calc 12.68 Est GFR (MDRD) Af Amer 14 L Est GFR (MDRD) Non-Af 11 L BUN/Creatinine Ratio 13.5 Glucose 460 H* Calcium 8.7 Urine Color Urine Clarity Urine pH Ur Specific Staley Urine Protein Urine Glucose (UA) Urine Ketones Urine Occult Blood Urine Nitrite Urine Bilirubin Urine Urobilinogen Ur Leukocyte Esterase Urine RBC Urine WBC Ur Squamous Epith Cells Urine Bacteria Urine Mucus Acetone Level NEGATIVE POC Glucose 02/25/22 02/25/22 11:45 13:15 WBC RBC Hgb Hct MCV MCH MCHC RDW Std Deviation RDW Coeff of Chris Plt Count MPV Immature Gran % (Auto) Neut % (Auto) Lymph % (Auto) [place] % (Auto) Eos % (Auto) Baso % (Auto) Absolute Neuts (auto) Absolute Lymphs (auto) Nucleated RBC % Sodium Potassium Chloride Carbon Dioxide Anion Gap BUN Creatinine Estim Creat Clear Calc Est GFR (MDRD) Af Amer Est GFR (MDRD) Non-Af BUN/Creatinine Ratio Glucose Calcium Urine Color Yellow Urine Clarity Cloudy Urine pH 7.0 Ur Specific Staley 1.010 Urine Protein 100 H Urine Glucose (UA) 100 H Urine Ketones 15 H Urine Occult Blood 250 H Urine Nitrite Negative Urine Bilirubin Negative Urine Urobilinogen Normal Ur Leukocyte Esterase 500 H Urine RBC 0 SEEN Urine WBC >100 SEEN Ur Squamous Epith Cells 0 SEEN Urine Bacteria 3+ Urine Mucus 0 SEEN Acetone Level POC Glucose 399 H Radiography Diagnostic Testing: Clinical Impression(s) from Imaging Studies Chest X-Ray 02/25/22 11:15 IMPRESSION: Stable cardiomegaly. Resolving bilateral pleural effusions and pulmonary vascular congestion. Mild residual bibasilar atelectasis. Electronically Signed: Robert Espino MD at 11:37 EST , <Dr. Mitesh Magana MD - Last Filed: 02/25/22 11:31> [facility] MDM Narrative Medical decision making narrative: Patient presents with malaise, nausea and vomiting, and hyperglycemia. She appears chronically ill but nontoxic. Vital signs are within normal limits. She has dry mucous membranes. Heart is regular. Lungs clear. Abdomen soft and nontender. She is moving all extremities and neurologically intact. She was given IV fluids and DKA work-up initiated. I have personally performed a face to face assessment of the patient and have reviewed the VANCE Note. I performed a substantive portion of the visit including all aspects of the following. My richardson findings include: History is [61-year-old diabetic female evaluated with her physician assistant front end manager. Patient with elevated blood sugar and has not felt well today. Denies any fever. No dysuria. Denies any vomiting or diarrhea. No cough or shortness of breath. Patient lives at home.] Exam is [61-year-old female. Vital signs are stable and afebrile. She does not look septic or toxic. She is in no acute distress. Clinically she does look dehydrated. Dry mucous membranes. H EENT exam unremarkable other than dry mucous membranes. Neck tender no JVD. Lungs clear to auscultation. Heart regular rhythm rate about 90 no murmur. Abdomen soft nontender. Moving all 4 extremities. Trace edema both lower extremities with wraps on. Neurologically she is awake alert. Answering questions and following commands.] Medical Decision Making [61-year-old with elevated blood sugar in the 400s. Screening labs will be obtained with a urinalysis, EKG serum ketones. She will be treated with a liter normal saline.] Other additions or changes: [None] Lab Data Attestation: I reviewed the patient's lab results. Lab results narrative: CBC shows elevated white count of 14.1. H&H 8.7 and 27.3. She is a baseline anemia. Platelets 288. Labs: Laboratory Results - last 24 hr 02/25/22 02/25/22 02/25/22 11:15 11:15 11:15 WBC 14.1 H RBC 3.16 L Hgb 8.7 L Hct 27.3 L MCV 86.4 MCH 27.5 MCHC 31.9 L RDW Std Deviation 48.2 H RDW Coeff of Chris 15.1 H Plt Count 288 MPV 10.8 Immature Gran % (Auto) 0.500 Neut % (Auto) 91.6 H Lymph % (Auto) 4.3 L [place] % (Auto) 3.1 Eos % (Auto) 0.1 Baso % (Auto) 0.4 Absolute Neuts (auto) 12.9 H Absolute Lymphs (auto) 0.61 L Nucleated RBC % 0 Sodium 137 Potassium 5.4 H Chloride 104 Carbon Dioxide 22.0 Anion Gap 11 BUN 58 H Creatinine 4.30 H Estim Creat Clear Calc 12.68 Est GFR (MDRD) Af Amer 14 L Est GFR (MDRD) Non-Af 11 L BUN/Creatinine Ratio 13.5 Glucose 460 H* Calcium 8.7 Urine Color Urine Clarity Urine pH Ur Specific [place] Urine Protein Urine Glucose (UA) Urine Ketones Urine Occult Blood Urine Nitrite Urine Bilirubin Urine Urobilinogen Ur Leukocyte Esterase Urine RBC Urine WBC Ur Squamous Epith Cells Urine Bacteria Urine Mucus Acetone Level NEGATIVE POC Glucose 02/25/22 02/25/22 11:45 13:15 WBC RBC Hgb Hct MCV MCH MCHC RDW Std Deviation RDW Coeff of Chris Plt Count MPV Immature Gran % (Auto) Neut % (Auto) Lymph % (Auto) [place] % (Auto) Eos % (Auto) Baso % (Auto) Absolute Neuts (auto) Absolute Lymphs (auto) Nucleated RBC % Sodium Potassium Chloride Carbon Dioxide Anion Gap BUN Creatinine Estim Creat Clear Calc Est GFR (MDRD) Af Amer Est GFR (MDRD) Non-Af BUN/Creatinine Ratio Glucose Calcium Urine Color Yellow Urine Clarity Cloudy Urine pH 7.0 Ur Specific [place] 1.010 Urine Protein 100 H Urine Glucose (UA) 100 H Urine Ketones 15 H Urine Occult Blood 250 H Urine Nitrite Negative Urine Bilirubin Negative Urine Urobilinogen Normal Ur Leukocyte Esterase 500 H Urine RBC 0 SEEN Urine WBC >100 SEEN Ur Squamous Epith Cells 0 SEEN Urine Bacteria 3+ Urine Mucus 0 SEEN Acetone Level POC Glucose 399 H Radiography Diagnostic Testing: Clinical Impression(s) from Imaging Studies Chest X-Ray 02/25/22 11:15 IMPRESSION: Stable cardiomegaly. Resolving bilateral pleural effusions and pulmonary vascular congestion. Mild residual bibasilar atelectasis. Electronically Signed: Robert Espino MD at 11:37 EST , Rhythm Strip Rhythm Strip: Sinus Rhythm Rate: 90 Ectopy: None EKG Initial EKG: Attestation: I personally reviewed and interpreted this EKG as follows: Interpretation: Sinus Rhythm and No Acute Injury Pattern Comments: Normal sinus rhythm. No acute signs of CT or ischemia. Rate of 90. Discharge Plan Triage Chief Complaint: General Illness ED Midlevel Provider: Nica Calhoun ED Provider: Mitesh Magana Dx/Rx/DC Orders Clinical Impression: Acute dehydration, Acute kidney injury, UTI (urinary tract infection), Diabetes mellitus with hyperglycemia, Acute hyperkalemia Prescriptions: No Action diltiazem HCl 180 MG capsule 180 mg PO DAILY pantoprazole 40 MG tablet 40 mg PO DAILY atorvastatin 40 MG tablet 40 mg PO QHS aspirin 81 MG tablet,chewable 81 mg PO QHS clonidine HCl 0.3 MG tablet 0.3 mg PO TID insulin lispro [Humalog KwikPen Insulin] 100 unit/mL insulin pen 8 unit subcut TIDCM tramadol 50 mg tablet 50 mg PO BID PRN (Reason: Pain) sertraline 50 mg tablet 50 mg PO QHS insulin glargine-yfgn 100 unit/mL (3 mL) insulin pen 35 unit subcut QHS ondansetron 4 mg tablet,disintegrating 4 mg PO Q8H ferrous sulfate [FeroSul] 325 mg (65 mg iron) tablet 325 mg PO QHS polyethylene glycol 3350 17 gram powder in packet 17 g PO DAILY PRN (Reason: Constipation) furosemide [Lasix] 40 mg tablet 40 mg PO DAILY Qty: 30 0RF pregabalin 75 mg capsule 50 mg PO BID Primary Care Provider: Dennys Serrano Referrals: Dennys Serrano MD [Primary Care Provider] -
[2022-02-25 11:25] LABS: Absolute Lymphocyte Count 0.61 X10^3/uL (0.83-4.51); Absolute Neutrophil Count 12.9 X10^3/uL (2.0-7.7); Basophil# 0.05 X10^3/uL; Basophil% 0.4 % (0-1); Eosinophil# 0.01 X10^3/uL; Eosinophils% 0.1 % (0-5); Hematocrit 27.3 % (37-47); Hemoglobin 8.7 g/dL (12.0-15.0); Lymphocyte # 0.61 X10^3/ul (0.83-4.51); Lymphocyte % 4.3 % (19-41); Mean Corp Hgb Conc 31.9 g/dL (32-36); Mean Corpuscular Hgb 27.5 pg (27.0-32.0); Mean Corpuscular Volume 86.4 fL (81-99); Mean Platelet Vol. 10.8 fl (6.2-12.0); Monocyte# 0.44 X10^3/uL; Monocyte% 3.1 % (0-10); NRBC Flagged by Analyzer 0 % (0-5); Neutrophil # 12.93 X10^3/uL (2.7-7.7); Neutrophil % 91.6 % (47-70); Platelet Count 288 K/mm3 (150-450); RBC Distribution Width CV 15.1 % (11.6-14.6); RBC Distribution Width SD 48.2 fl (35.1-43.9); Red Blood Count 3.16 M/mm3 (4.2-5.4); White Blood Count 14.1 K/mm3 (4.4-11.0)
[2022-02-25 11:46] LABS: Anion Gap 11 (5-15); BUN 58 mg/dL (7-18); BUN/Creat Ratio 13.5 RATIO (10-20); Calcium,Total 8.7 mg/dL (8.5-10.1); Chloride 104 mmol/L (98-107); EST Glomerular Filtration Rate 11 mL/min (>60); Est Glom Filt Rate - Afr Amer 14 mL/min (>60); Estimated Creatinine Clearance 12.68 ml/min; Glucose 460 mg/dL (74-106); Potassium 5.4 mmol/L (3.5-5.1); Sodium Level 137 mmol/L (136-145)
[2022-02-25 11:52] LABS: Mucous, Urine 0 SEEN /hpf (<or=2+); Red Blood Cells-Urine 0 SEEN /hpf (0-5); Squamous Epithelial Cells - UA 0 SEEN /hpf (5-10)
[2022-02-25 11:55] LABS: Color, Urine Yellow (Yellow); Glucose, Dipstick 100 mg/dl (Normal); Ketone-Dipstick 15 mg/dl (Negative); Leukocyte Esterase-Dipstick 500 /ul (Negative); Nitrite-Dipstick Negative (Negative); Occult Blood-Urine 250 /ul (Negative); Protein-Dipstick 100 mg/dl (Negative); Urine Bilirubin Dipstick Negative (Negative); Urine Clarity Cloudy (Clear); Urine Urobilinogen Normal (Normal)
[2022-02-25 12:09] LABS: Bacteria 3+ /hpf (None Seen); White Blood Cells >100 SEEN /hpf (0-5)
[2022-02-25] MEDS: Ceftriaxone 1 GM/50 ML BAG IV (12:24)
[2022-02-25] MEDS: Insulin Lispro 100 UNIT/ML INSULN.PEN 10 UNIT SC (12:25)
--- NOTE | 2022-02-25 13:15 | HP.PCM.HOS_ITS ---
HPI - General General Date of Service: 02/25/22 Chief Complaint: Hyperglycemia HPI Narrative LAYNE VINCENT, is a 61 F who presents with hypoglycemia. States her blood sugar was over 400 at home. Was concerned and came to the emergency room. In the emergency room, they confirmed that her blood sugar was 416 patient received 10 units of NovoLog. Patient was found to have urinary tract infection and did receive ceftriaxone. Patient denies any dysuria or any foul smelling urine. Patient creatinine was up from her baseline around 3-4.3. Patient did receive a liter of IV fluids. Patient states that she has been eating and drinking okay. Patient states that she has been feeling well overall and walking with a Rollator with no difficulties. She states that she does not feel unsteady at all. [facility] Medical History Cardiology follow-up encounter Chronic pain syndrome Closed intertrochanteric fracture of left hip Diabetes Dietary restriction Essential hypertension Excessive bleeding Fall Gastric reflux High cholesterol History of echocardiogram History of edema History of orthostatic hypotension History of stress test HLD (hyperlipidemia) HTN (hypertension) Hx of orthostatic hypotension Injury of head and neck Insulin dependent diabetes mellitus Low iron Malnutrition Migraine headache Migraine without aura Non-smoker Post-concussion syndrome Symptomatic anemia Syncope Transfusion of blood during current hospitalisation Type II diabetes mellitus Vertigo Vomiting Wears glasses Home Medications diltiazem HCl 180 mg capsule,extended release 24 hr 180 mg PO DAILY blood pressure 12/17/18 [History Last Taken 02/13/21] aspirin 81 mg chewable tablet 81 mg PO QHS HEART HEALTH 12/15/19 [History Last Taken 02/12/22] atorvastatin 40 mg tablet 40 mg PO QHS CHOLESTEROL 12/15/19 [History Last Taken 02/12/22] pantoprazole 40 mg tablet,delayed release 40 mg PO DAILY GERD 12/15/19 [History Last Taken 02/13/22] clonidine HCl 0.3 mg tablet 0.3 mg PO TID BLOOD PRESSURE 01/06/22 [History Last Taken 02/13/22] insulin lispro 100 unit/mL subcutaneous pen (Humalog KwikPen (U-100) Insulin) 8 unit subcut TIDCM diabetes 01/06/22 [History Last Taken 02/13/22] sertraline 50 mg tablet 50 mg PO QHS DEPRESSION 01/06/22 [History Last Taken 02/12/22] tramadol 50 mg tablet 50 mg PO BID PRN Pain 01/06/22 [History Last Taken 02/12/22] insulin glargine-yfgn 100 unit/mL (3 mL) subcutaneous pen 35 unit subcut QHS DIABETES 02/02/22 [History Last Taken 02/12/22] ferrous sulfate 325 mg (65 mg iron) tablet (FeroSul) 325 mg PO QHS SUPPLEMENT 02/13/22 [History Last Taken 02/12/22] ondansetron 4 mg disintegrating tablet 4 mg PO Q8H NAUSEA 02/13/22 [History Last Taken 1 Week Ago ~02/06/22] polyethylene glycol 3350 17 gram oral powder packet 17 g PO DAILY PRN Constipation 02/13/22 [History Last Taken Unknown] furosemide 40 mg tablet (Lasix) 40 mg PO DAILY EDEMA #30 tabs 02/16/22 [Rx Last Taken 02/13/22] pregabalin 75 mg capsule 50 mg PO BID PAIN 02/25/22 [History Last Taken Unknown] Allergy/AdvReac Type Severity Reaction Status Date / Time metformin AdvReac Diarrhea Verified 02/09/22 14:58 Family History Mother Hypertension Father Cancer lymphoma, leukemia Emphysema of lung Grandmother Diabetes Surgical History History of cholecystectomy History of esophagogastroduodenoscopy (EGD) History of mandibular surgery Hx of colonoscopy Social History household members: significant other Smoking Status: Never smoker alcohol intake: never substance use type: does not use ROS ROS Narrative Lower extremity edema with lymphedema wraps. Unchanged. Denies any fever or chills. No shortness of breath. All review of systems were negative except as mentioned above in the history of present illness and the other review of systems. Vital Signs Vital Signs Vital Signs: 02/25/22 11:05 02/25/22 11:07 02/25/22 11:08 Temperature 36.7 C 36.7 C Temperature Source Oral Oral Pulse Rate 93 92 Respiratory Rate 12 15 Respiratory Pattern Normal Blood Pressure 172/89 H 172/89 H Blood Pressure Mean 116 116 Pulse Ox 91 92 Oxygen Delivery Method Room Air Room Air Oxygen Flow Rate (L/min) 02/25/22 11:49 02/25/22 12:03 02/25/22 12:03 Temperature 36.6 C Temperature Source Oral Pulse Rate 88 88 Respiratory Rate 19 H 19 H Respiratory Pattern Blood Pressure 159/76 H 159/76 H Blood Pressure Mean 103 103 Pulse Ox 96 96 96 Oxygen Delivery Method Nasal Cannula Nasal Cannula Nasal Cannula Oxygen Flow Rate (L/min) 2 2 2 02/25/22 13:00 Temperature 36.5 C L Temperature Source Oral Pulse Rate 84 Respiratory Rate 14 Respiratory Pattern Blood Pressure 152/68 H Blood Pressure Mean 96 Pulse Ox 98 Oxygen Delivery Method Nasal Cannula Oxygen Flow Rate (L/min) 3 Weight Weight: 83.6 kg Body Mass Index (BMI) 30.7 Physical Exam Const alert and no apparent distress General Appearance: cooperative Resp normal respiratory effort, no retractions, no use of accessory muscles and clear to auscultation bilaterally Cardio regular rate, regular rhythm, S1 normal heart sound and S2 normal heart sound GI normal to inspection, nondistended, normoactive bowel sounds, soft to palpation, non-tender and non-distended Extremity Extremity Narrative: Bilateral lower extremity edema with lymphedema wraps in place. Psych affect normal Results Lab / Micro Data Attestation: I reviewed the patient's lab results. Result Diagrams: 02/25/22 11:15 02/25/22 11:15 Labs: Laboratory Results - last 24 hr 02/25/22 11:15: WBC 14.1 H, RBC 3.16 L, Hgb 8.7 L, Hct 27.3 L, MCV 86.4, MCH 27.5, MCHC 31.9 L, RDW Std Deviation 48.2 H, RDW Coeff of Chris 15.1 H, Plt Count 288, MPV 10.8, Immature Gran % (Auto) 0.500, Neut % (Auto) 91.6 H, Lymph % (Auto) 4.3 L, [place] % (Auto) 3.1, Eos % (Auto) 0.1, Baso % (Auto) 0.4, Absolute Neuts (auto) 12.9 H, Absolute Lymphs (auto) 0.61 L, Nucleated RBC % 0 02/25/22 11:15: Sodium 137, Potassium 5.4 H, Chloride 104, Carbon Dioxide 22.0, Anion Gap 11, BUN 58 H, Creatinine 4.30 H, Estim Creat Clear Calc 12.68, Est GFR (MDRD) Af Amer 14 L, Est GFR (MDRD) Non-Af 11 L, BUN/Creatinine Ratio 13.5, Glucose 460 H*, Calcium 8.7 02/25/22 11:15: Acetone Level NEGATIVE 02/25/22 11:45: Urine Color Yellow, Urine Clarity Cloudy, Urine pH 7.0, Ur Specific [place] 1.010, Urine Protein 100 H, Urine Glucose (UA) 100 H, Urine Ketones 15 H, Urine Occult Blood 250 H, Urine Nitrite Negative, Urine Bilirubin Negative, Urine Urobilinogen Normal, Ur Leukocyte Esterase 500 H, Urine RBC 0 SEEN, Urine WBC >100 SEEN, Ur Squamous Epith Cells 0 SEEN, Urine Bacteria 3+, Ur ine Mucus 0 SEEN Rhythm Strip Rhythm Strip: Sinus Rhythm Rate: 90 Ectopy: None Radiology Impression Chest X-Ray 02/25/22 11:15 IMPRESSION: Stable cardiomegaly. Resolving bilateral pleural effusions and pulmonary vascular congestion. Mild residual bibasilar atelectasis. Electronically Signed: Robert Espino MD at 11:37 EST Reading Location ID and State: [address] [place] [address] Tel , Service support , Assessment & Plan Assessment/Plan (1) Acute kidney injury: PLAN: Suspect prerenal Baseline creatinine is 3 and she is 4.3 We will hold the patient's furosemide Additional IV fluids Recheck BMP in the morning (2) UTI (urinary tract infection): PLAN: Asymptomatic but urinalysis is definitively positive for UTI. Continue ceftriaxone Follow-up urine (3) Diabetes mellitus with hyperglycemia: QUALIFIERS: Diabetes mellitus type: type 2 Diabetes mellitus intermediate manager insulin use: with intermediate manager use Qualified Code(s): E11.65 - Type 2 diabetes mellitus with hyperglycemia; Z79.4 - half-way (current) use of insulin PLAN: States that her blood sugar at home is controlled with blood sugars in the 200 range. This 400+ level is outside of her norm We will continue with her glargine, scheduled NovoLog as well as sliding scale insulin Check an A1c Patient did receive a 10 units of NovoLog in the emergency room PLAN: Plan Chronic conditions * Lymphedema: Continue lymphedema wraps. Furosemide to be held given ALMA * GERD: Continue PPI * Chronic pain syndrome: We will decrease the patient's pregabalin from twice daily to once daily given ALMA. * Chronic debility: Patient uses a Rollator at baseline. PT OT evaluate and treat to see if patient has any additional therapy needs for when she is discharged. VTE prophylaxis: Moderate risk. She subcu heparin. Charges/Coding Visit Charges Inpatient E&M: 47350 Init Hosp L2
[2022-02-25 13:40] LABS: Bedside Glucose 399 mg/dL (74-106)
[2022-02-25] MEDS: Insulin Lispro 100 UNIT/ML INSULN.PEN 8 UNIT SC (18:04)
[2022-02-25] MEDS: Insulin Lispro 100 UNIT/ML INSULN.PEN SC (18:05)
[2022-02-25] MEDS: Ondansetron ODT 4 MG Tablet PO (18:13)
[2022-02-25] MEDS: 0.9% Normal Saline 1,000 ML 150 ML IV (18:13)
[2022-02-25 18:25] LABS: Bedside Glucose 363 mg/dL (74-106)
[2022-02-25] MEDS: Atorvastatin Calcium 40 MG Tablet PO (20:48)
[2022-02-25] MEDS: Heparin Injection (Vial) 5,000 UNIT/ML VIAL 5000 UNIT SC (20:48)
[2022-02-25] MEDS: Insulin Glargine-YFGN 100 UNIT/ML Pen 35 UNIT SC (20:48)
[2022-02-25] MEDS: Aspirin 81 MG TAB.CHEW PO (20:48)
[2022-02-25] MEDS: Sertraline 50 MG Tablet PO (20:48)
[2022-02-25] MEDS: cloNIDine HCl 0.1 MG Tablet 0.3 MG PO (20:53)
[2022-02-25] MEDS: Ferrous Sulfate 325 MG Tablet PO (20:53)
[2022-02-25 22:15] LABS: Bedside Glucose 293 mg/dL (74-106)
[2022-02-26] VITALS (7 sets, daily range): BP systolic 128–177; BP diastolic 58–87; PULSE 69–76; RESP 16–18; TEMP 36.7–37.1; O2SAT 90–100
[2022-02-26] MEDS: 0.9% Normal Saline 1,000 ML 150 ML IV ×2 (00:12→06:15)
[2022-02-26 06:01] LABS: Absolute Lymphocyte Count 1.18 X10^3/uL (0.83-4.51); Absolute Neutrophil Count 8.9 X10^3/uL (2.0-7.7); Basophil# 0.04 X10^3/uL; Basophil% 0.4 % (0-1); Eosinophil# 0.09 X10^3/uL; Eosinophils% 0.8 % (0-5); Hematocrit 23.9 % (37-47); Hemoglobin 7.6 g/dL (12.0-15.0); Lymphocyte # 1.18 X10^3/ul (0.83-4.51); Lymphocyte % 10.7 % (19-41); Mean Corp Hgb Conc 31.8 g/dL (32-36); Mean Corpuscular Hgb 28.1 pg (27.0-32.0); Mean Corpuscular Volume 88.5 fL (81-99); Mean Platelet Vol. 10.7 fl (6.2-12.0); Monocyte# 0.75 X10^3/uL; Monocyte% 6.8 % (0-10); NRBC Flagged by Analyzer 0 % (0-5); Neutrophil # 8.91 X10^3/uL (2.7-7.7); Neutrophil % 80.9 % (47-70); Platelet Count 268 K/mm3 (150-450); RBC Distribution Width CV 15.4 % (11.6-14.6); RBC Distribution Width SD 50.1 fl (35.1-43.9)
[2022-02-26] MEDS: cloNIDine HCl 0.1 MG Tablet 0.3 MG PO ×3 (06:13→21:17)
[2022-02-26 06:43] LABS: Anion Gap 7 (5-15); BUN 57 mg/dL (7-18); Chloride 109 mmol/L (98-107); Creatinine, Serum 4.08 mg/dL (0.55-1.02); EST Glomerular Filtration Rate 12 mL/min (>60); Est Glom Filt Rate - Afr Amer 14 mL/min (>60); Estimated Creatinine Clearance 13.36 ml/min; Glucose 129 mg/dL (74-106); Potassium 4.5 mmol/L (3.5-5.1); Sodium Level 141 mmol/L (136-145); Thyroid Stim Hormone (TSH) 0.59 uIU/mL (0.358-3.74)
--- NOTE | 2022-02-26 08:08 | WOUNDNOTE ---
skin photo: right lower leg
[2022-02-26 08:09] LABS: Hemoglobin A1c 7.9 % (3.8-5.6)
--- NOTE | 2022-02-26 08:09 | WOUNDNOTE ---
skin photo: left lower leg
--- NOTE | 2022-02-26 08:09 | WOUNDNOTE ---
skin photo: left lower leg
--- NOTE | 2022-02-26 08:10 | WOUNDNOTE ---
wound photo: left heel
[2022-02-26] MEDS: Insulin Lispro 100 UNIT/ML INSULN.PEN 8 UNIT SC (08:32)
[2022-02-26] MEDS: Pantoprazole Sodium 40 MG Tablet PO (08:33)
[2022-02-26] MEDS: dilTIAZem CD 180 MG Capsule PO (08:33)
[2022-02-26] MEDS: Ondansetron ODT 4 MG Tablet PO ×2 (08:36→17:15)
[2022-02-26] MEDS: traMADol 50 MG Tablet PO (08:36)
[2022-02-26] MEDS: Pregabalin 50 MG Capsule PO ×2 (08:36→21:23)
[2022-02-26] MEDS: Heparin Injection (Vial) 5,000 UNIT/ML VIAL 5000 UNIT SC ×2 (08:37→21:18)
[2022-02-26] MEDS: Ceftriaxone 1 GM/50 ML BAG IV (09:49)
--- NOTE | 2022-02-26 11:26 | NURSING ---
pt awake, conversant. orange juice with 2 sugars given. pt takes no difficulty. dr hodo at bedside.
[2022-02-26] MEDS: Dextrose 50%-Water 25 GM/50 ML DISP.SYRIN IV (11:33)
--- NOTE | 2022-02-26 11:38 | NURSING ---
pt awake, talking. states at home my blood sugar can be 200's then drop into the 40's and 50's. inquired as to what pt does at home when this occurs states she eats snacks. Pt again states that she is able to tell when her blood sugar starts to drop and looking back, i think it was dropping, i just didn't say anything. reinforced safety/hypoglycemia and informing staff when this feeling is occurring to corrective action can be taken if needed.
--- NOTE | 2022-02-26 11:41 | NURSING ---
lab at bedside drawing blood. Pt ordering her lunch.
[2022-02-26] MEDS: Dext 5%-0.45% NS 1,000 ML 100 ML IV (11:44)
--- NOTE | 2022-02-26 11:48 | NURSING ---
pt using her Yane device. verified and pt states she DOES NOT have an insulin pump. pt states her fingers start to stiffen up when her blood sugar drops and states that was occurring. again reinforced importance of notifying staff.
[2022-02-26 11:50] LABS: Bedside Glucose 23 mg/dL (74-106)
[2022-02-26 12:13] LABS: Glucose 190 mg/dL (74-106)
[2022-02-26 12:15] LABS: Bedside Glucose 139 mg/dL (74-106)
[2022-02-26 13:46] LABS: Bedside Glucose 95 mg/dL (74-106)
--- NOTE | 2022-02-26 13:49 | CT_ITS ---
STUDY: CT BRAIN WITHOUT CONTRAST REASON FOR EXAM: Female, 61 years old. UTI. -- Altered mental status RADIATION DOSAGE (If Supplied By Facility): CTDIvol = ( 44.99 ) mGy, DLP = ( 812.98 ) mGycm TECHNIQUE: Transaxial CT imaging of the brain was performed without administration of intravenous contrast material. Individualized dose optimization techniques were used for this CT. COMPARISON: Comparison is made with prior study dated 02/15/2021. FINDINGS: Normal soft tissue structures. Normal calvarium. There is mild cerebral atrophy with widening of the extra-axial spaces and ventricular dilatation. There are areas of decreased attenuation within the white matter tracts of the supratentorial brain, consistent with microvascular disease changes. Normal basal ganglia and thalami. Normal brainstem. Normal cerebellum. There is no intracranial hemorrhage. There are no findings of an acute ischemic infarction. Minimal degree of mucosal thickening at the base of the left maxillary sinus. CT/Brain/Head without Contrast IMPRESSION: Chronic involutional changes of the brain. Electronically Signed: Angel Manley MD at 14:50 EST ,
[2022-02-26 14:20] LABS: Base Excess -2 mmol/L (-2 to +2); Bicarbonate 24.1 mmol/L (22-26); Blood Gas Specimen Type ART; O2 Delivery Device Room Air; PO2 59 mmHG (75-100); SITE L Brach; SO2 88 % (95-99); Total Carbon Dioxide 26 mmol/L; pH 7.33 (7.35-7.45)
--- NOTE | 2022-02-26 14:48 | CASEMGMT ---
PRIYA SILVA Readmission Note Previous Admission:? 02/13/2022-02/16/2022? Diagnosis:? acute on chronic heart failure, symptomatic anemia DC Disposition: Home with?[facility] SN, PT and OT Current Admission? Current Diagnosis: UTI, ALMA Pt presents from home with increased blood sugar, reporting in the 400's at home. Patient was found to have urinary tract infection and received ceftriaxone. Patient's creatinine elevated from her baseline, she received IVF. Pt has a family independence case manager Bell Saucedo at [facility]. She receives 14 meals per week as well. Pt has medic alert and per email from [facility], she is current with SN and PT. PRIYA SILVA into pt room to discuss dc planning, pt is currently off of the floor. PRIAY SILVA to check back. DC Plan: TBD
[2022-02-26 15:37] LABS: Hematocrit 26.5 % (37-47); Hemoglobin 8.1 g/dL (12.0-15.0)
[2022-02-26 15:40] LABS: Bedside Glucose 128 mg/dL (74-106)
[2022-02-26 15:45] LABS: AST(SGOT) 9 U/L (15-37); Alanine Aminotransfer ALT/SGPT 13 U/L (13-56); Alkaline Phosphatase 118 U/L (45-117); Bilirubin, Direct 0.11 mg/dL (0.00-0.30); Globulin 3.7 g/dL (2.2-4.2); Protein, Total 5.7 g/dL (6.4-8.2)
--- NOTE | 2022-02-26 15:59 | PCM.CONS.R ---
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 Likely ALMA multifactorial and is prerenal from UTI, hyperglycemia with possible concurrent diuretic use. During last hospitalization in mid December serum creatinine leveled off to 2.7 mg/dL (creatinine had peaked at 3.23 mg/dL). From mid December to February 14 serum creatinine still ranging around 2.7 mg/dL. Patient did have lab work on 02/19/2022 which showed creatinine of 3.14 mg/dL. Patient reports at this time she was on Lasix. Patient had work-up during last hospitalization which included urine protein creatinine ratio of 1.3 g, albumin was 1.6. Renal ultrasound did not show any acute pathology, no hydronephrosis, mass or calculi. 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 Hemoglobin A1c 13.9% on 01/08/2022. In reviewing past creatinine trends since 2019 to January 2021 baseline creatinine has been ranging around 1.3 mg/dL. Last admission creatinine leveled off around 2.7 mg/dL. This may be a baseline CKD. We will follow serum creatinine trends/trajectory. At this time there is no acute indication for COMMUNITY DEVELOPMENT AIDE. No significant uremic symptoms, potassium and acid-base acceptable, no overt hypervolemia and patient is nonoliguric. Recommend strict I and O, recommend continue holding Lasix as you are doing. Blood sugar was noted to be low today and patient was started on D5 at 100 mL an hour. Encouraged patient to increase solute and fluid intake. Blood pressure is acceptable and improved. Patient had echo few weeks ago: Mild concentric left ventricular hypertrophy, normal LV size, mild global left ventricular systolic dysfunction, EF 45%, diastolic function is indeterminate. Patient has history of lymphedema, her legs are wrapped. She had venous duplex of lower extremity on 02/02/2022 with findings: No evidence of right or left lower extremity deep venous thrombosis. Patient is on IV antibiotics for UTI, ceftriaxone. Urine culture pending. Further orders forthcoming as hospitalization evolves. Thank you for allowing us to participate in the care of Ms. Sprague. HPI Consult Data Date of Consult: 02/26/22 HPI Narrative HPI Narrative: LAYNE SPRAGUE, is a 61 F who presented to the emergency room yesterday via squad as she was noted to have elevated blood sugar greater than 400. Patient was complaining of feeling unwell. Work-up in the emergency room also revealed patient have UTI and ALMA therefore she was admitted for further evaluation and treatment. Patient has past medical history significant for hypertension, DM type II, chronic heart failure with preserved EF, history of lymphedema and CKD. We were consulted for evaluation of acute kidney injury superimposed on chronic kidney disease. Patient is known to our service from previous evaluation/consult when in the hospital in December 2021. She was seen for ALMA. ALMA felt to be secondary to volume depletion with hyperglycemia and UTI. Her creatinine peaked around 3.2 mg/dL by time of discharge leveled off to around 2.7 mg/dL. Patient did not require any COMMUNITY DEVELOPMENT AIDE. Today patient denies any recent nausea or vomiting. She denies hematuria. Denies NSAIDs. Patient reports that she has been following closely with her primary care physician as she was noted to have worsening lower extremity edema extending up into her abdomen. She was started on furosemide for total of 2 weeks. No other new medications. [facility] Medical History (Updated 02/26/22 @ 16:07 by JUAN MANUEL Rivas) Anemia Cardiology follow-up encounter Chronic pain syndrome Closed intertrochanteric fracture of left hip Diabetes Dietary restriction Essential hypertension Excessive bleeding Fall Gastric reflux High cholesterol History of echocardiogram History of edema History of orthostatic hypotension History of stress test HLD (hyperlipidemia) HTN (hypertension) Hx of orthostatic hypotension Injury of head and neck Insulin dependent diabetes mellitus Low iron Malnutrition Migraine headache Migraine without aura Non-smoker Post-concussion syndrome Symptomatic anemia Syncope Transfusion of blood during current hospitalisation Type II diabetes mellitus Vertigo Vomiting Wears glasses Home Medications diltiazem HCl 180 mg capsule,extended release 24 hr 180 mg PO DAILY blood pressure 12/17/18 [History Last Taken 02/13/21] aspirin 81 mg chewable tablet 81 mg PO QHS HEART HEALTH 12/15/19 [History Last Taken 02/12/22] atorvastatin 40 mg tablet 40 mg PO QHS CHOLESTEROL 12/15/19 [History Last Taken 02/12/22] pantoprazole 40 mg tablet,delayed release 40 mg PO DAILY GERD 12/15/19 [History Last Taken 02/13/22] clonidine HCl 0.3 mg tablet 0.3 mg PO TID BLOOD PRESSURE 01/06/22 [History Last Taken 02/13/22] insulin lispro 100 unit/mL subcutaneous pen (Humalog KwikPen (U-100) Insulin) 8 unit subcut TIDCM diabetes 01/06/22 [History Last Taken 02/13/22] sertraline 50 mg tablet 50 mg PO QHS DEPRESSION 01/06/22 [History Last Taken 02/12/22] tramadol 50 mg tablet 50 mg PO BID PRN Pain 01/06/22 [History Last Taken 02/12/22] insulin glargine-yfgn 100 unit/mL (3 mL) subcutaneous pen 35 unit subcut QHS DIABETES 02/02/22 [History Last Taken 02/12/22] ferrous sulfate 325 mg (65 mg iron) tablet (FeroSul) 325 mg PO QHS SUPPLEMENT 02/13/22 [History Last Taken 02/12/22] ondansetron 4 mg disintegrating tablet 4 mg PO Q8H NAUSEA 02/13/22 [History Last Taken 1 Week Ago ~02/06/22] polyethylene glycol 3350 17 gram oral powder packet 17 g PO DAILY PRN Constipation 02/13/22 [History Last Taken Unknown] furosemide 40 mg tablet (Lasix) 40 mg PO DAILY EDEMA #30 tabs 02/16/22 [Rx Last Taken 02/13/22] pregabalin 75 mg capsule 50 mg PO BID PAIN 02/25/22 [History Last Taken Unknown] Allergy/AdvReac Type Severity Reaction Status Date / Time metformin AdvReac Diarrhea Verified 02/09/22 14:58 Family History Mother Hypertension Father Cancer lymphoma, leukemia Emphysema of lung Grandmother Diabetes Surgical History (Updated 02/25/22 @ 18:11 by eC Luong) History of cholecystectomy History of cholecystectomy History of esophagogastroduodenoscopy (EGD) History of mandibular surgery Hx of colonoscopy Social History household members: significant other Smoking Status: Never smoker alcohol intake: never substance use type: does not use Lab / Micro Data Result Diagrams: 02/26/22 15:25 02/26/22 11:40 Labs: Laboratory Results - last 24 hr 02/25/22 18:03: POC Glucose 363 H 02/25/22 20:46: POC Glucose 293 H 02/26/22 04:52: WBC 11.0, RBC 2.70 L, Hgb 7.6 L, Hct 23.9 L, MCV 88.5, MCH 28.1, MCHC 31.8 L, RDW Std Deviation 50.1 H, RDW Coeff of Chris 15.4 H, Plt Count 268, MPV 10.7, Immature Gran % (Auto) 0.400, Neut % (Auto) 80.9 H, Lymph % (Auto) 10.7 L, [place] % (Auto) 6.8, Eos % (Auto) 0.8, Baso % (Auto) 0.4, Absolute Neuts (auto) 8.9 H, Absolute Lymphs (auto) 1.18, Nucleated RBC % 0 02/26/22 04:52: Sodium 141, Potassium 4.5, Chloride 109 H, Carbon Dioxide 25.0, Anion Gap 7, BUN 57 H, Creatinine 4.08 H, Estim Creat Clear Calc 13.36, Est GFR (MDRD) Af Amer 14 L, Est GFR (MDRD) Non-Af 12 L, BUN/Creatinine Ratio 14.0, Glucose 129 H, Calcium 8.0 L, TSH 0.59 02/26/22 04:52: Hemoglobin A1c 7.9 H 02/26/22 11:19: POC Glucose 23 L* 02/26/22 11:40: Glucose 190 H 02/26/22 11:40: Total Bilirubin 0.20, Direct Bilirubin 0.11, AST 9 L, ALT 13, Alkaline Phosphatase 118 H, Total Protein 5.7 L, Albumin 2.0 L, Globulin 3.7 02/26/22 11:57: POC Glucose 139 H 02/26/22 13:21: POC Glucose 95 02/26/22 15:08: POC Glucose 128 H 02/26/22 15:25: Hgb 8.1 L, Hct 26.5 L Micro: Microbiology 02/25/22 11:45 Urine Catheter - Catheter Urine Culture - Preliminary GNR non equal opportunity director ABG Data ABG results: ABG 02/26/22 14:13 Specimen Type ART Sample Site L Brach pH 7.33 L Bicarbonate Actual 24.1 Total CO2 26 Base Excess -2 O2 Saturation 88 L ABG pCO2 46.0 H ABG pO2 59 L O2 Delivery Device Room Air Rhythm Strip Rhythm Strip: Sinus Rhythm Rate: 90 Ectopy: None Radiology Impression Brain CT 02/26/22 13:49 IMPRESSION: Chronic involutional changes of the brain. Electronically Signed: Angel Manley MD at 14:50 EST ,
--- NOTE | 2022-02-26 16:17 | PN.HOSP_ITS ---
Subjective Subjective Follow-up for drowsiness, lethargy probably acute encephalopathy, multifactorial Patient found drowsy and lethargic in the morning. Her glucose was 23. She has bilateral leg swelling. BUN/creatinine high Objective Data Objective Data Vital Signs: Vital Signs Temp Pulse Resp BP Pulse Ox O2 Del Method O2 Flow Rate 98.1 F 73 18 144/62 H 100 Nasal Cannula 2 02/26/22 15:11 02/26/22 15:11 02/26/22 15:11 02/26/22 15:11 02/26/22 15:11 02/26/22 15:11 02/26/22 15:11 Oxygen Flow Rate (L/min) 2 Oxygen Delivery Method Nasal Cannula Weight: 186 lb 4.65 oz Body Mass Index (BMI) 30.9 Intake & Output: Intake and Output for Last 24 Hours 02/24/22 02/25/22 02/26/22 23:59 23:59 23:59 Intake Total 2050 / 2050 2660.0 / 2660.0 Output Total 250 / 250 275 / 275 Balance 1800 / 1800 2385.0 / 2385.0 Lab / Micro Data Result Diagrams: 02/26/22 15:25 02/26/22 11:40 Labs: Laboratory Results - last 24 hr 02/25/22 18:03: POC Glucose 363 H 02/25/22 20:46: POC Glucose 293 H 02/26/22 04:52: WBC 11.0, RBC 2.70 L, Hgb 7.6 L, Hct 23.9 L, MCV 88.5, MCH 28.1, MCHC 31.8 L, RDW Std Deviation 50.1 H, RDW Coeff of Chris 15.4 H, Plt Count 268, MPV 10.7, Immature Gran % (Auto) 0.400, Neut % (Auto) 80.9 H, Lymph % (Auto) 10.7 L, [place] % (Auto) 6.8, Eos % (Auto) 0.8, Baso % (Auto) 0.4, Absolute Neuts (auto) 8.9 H, Absolute Lymphs (auto) 1.18, Nucleated RBC % 0 02/26/22 04:52: Sodium 141, Potassium 4.5, Chloride 109 H, Carbon Dioxide 25.0, Anion Gap 7, BUN 57 H, Creatinine 4.08 H, Estim Creat Clear Calc 13.36, Est GFR (MDRD) Af Amer 14 L, Est GFR (MDRD) Non-Af 12 L, BUN/Creatinine Ratio 14.0, Glucose 129 H, Calcium 8.0 L, TSH 0.59 02/26/22 04:52: Hemoglobin A1c 7.9 H 02/26/22 11:19: POC Glucose 23 L* 02/26/22 11:40: Glucose 190 H 02/26/22 11:40: Total Bilirubin 0.20, Direct Bilirubin 0.11, AST 9 L, ALT 13, Alkaline Phosphatase 118 H, Total Protein 5.7 L, Albumin 2.0 L, Globulin 3.7 02/26/22 11:57: POC Glucose 139 H 02/26/22 13:21: POC Glucose 95 02/26/22 15:08: POC Glucose 128 H 02/26/22 15:25: Hgb 8.1 L, Hct 26.5 L Micro: Microbiology 02/25/22 11:45 Urine Catheter - Catheter Urine Culture - Preliminary GNR non digital manager ABG Data ABG results: ABG 02/26/22 14:13 Specimen Type ART Sample Site L Brach pH 7.33 L Bicarbonate Actual 24.1 Total CO2 26 Base Excess -2 O2 Saturation 88 L ABG pCO2 46.0 H ABG pO2 59 L O2 Delivery Device Room Air Radiography Diagnostic Testing: Radiology Impression Brain CT 02/26/22 13:49 IMPRESSION: Chronic involutional changes of the brain. Electronically Signed: Angel Manley MD at 14:50 EST , Rhythm Strip Rhythm Strip: Sinus Rhythm Rate: 90 Ectopy: None Assessment & Plan Assessment/Plan (1) Acute kidney injury: PLAN: Exact etiology unclear possible prerenal, multifactorial with consideration of ATN, mild night baseline: She had urine output 275 mils since midnight. Baseline creatinine is 3 and she is 4.3. Hold furosemide. Continue IV fluids Monitor kidney function. (2) UTI (urinary tract infection): PLAN: Asymptomatic but urinalysis is definitively positive for UTI. Continue ceftriaxone. Urine culture preliminary GNR nonfermenting [id number] colonies. Follow-up urine culture. (3) Diabetes mellitus with hyperglycemia: QUALIFIERS: Diabetes mellitus type: type 2 Diabetes mellitus correction insulin use: with superintendent container terminal use Qualified Code(s): E11.65 - Type 2 diabetes mellitus with hyperglycemia; Z79.4 - senior living (current) use of insulin PLAN: States that her blood sugar at home is controlled with blood sugars in the 200 range. This 400+ level is outside of her norm We will continue with her glargine, scheduled NovoLog as well as sliding scale insulin A1c 7.9%. she was hypoglycemic in the morning. Resuscitated with D50 and started on D5 half NS. Acute encephalopathy most probably metabolic multifactorial hypoglycemia, kidney failure: Even though BUN is not very high 57, BUN/creatinine ratio of 14. ABG was done, 7.3 on room air: Mild respiratory acidosis with hypoxia and increased AA gradient: Continue oxygen supplement. Total time of the visit including total time spent in counseling or coordination of care, (more than 50% of the total time, spent in obtaining medical information from nurses and other ancillary care providers,explaining to the patient about labs, imaging, diagnosis and management of active complex medical conditions), discussion with cafeteria helper, review of labs and imaging is 40 minutes. 02/25/22 18:03: POC Glucose 363 H 02/25/22 20:46: POC Glucose 293 H 02/26/22 04:52: WBC 11.0, RBC 2.70 L, Hgb 7.6 L, Hct 23.9 L, MCV 88.5, MCH 28.1, MCHC 31.8 L, RDW Std Deviation 50.1 H, RDW Coeff of Chris 15.4 H, Plt Count 268, MPV 10.7, Immature Gran % (Auto) 0.400, Neut % (Auto) 80.9 H, Lymph % (Auto) 10.7 L, [place] % (Auto) 6.8, Eos % (Auto) 0.8, Baso % (Auto) 0.4, Absolute Neuts (auto) 8.9 H, Absolute Lymphs (auto) 1.18, Nucleated RBC % 0 02/26/22 04:52: Sodium 141, Potassium 4.5, Chloride 109 H, Carbon Dioxide 25.0, Anion Gap 7, BUN 57 H, Creatinine 4.08 H, Estim Creat Clear Calc 13.36, Est GFR (MDRD) Af Amer 14 L, Est GFR (MDRD) Non-Af 12 L, BUN/Creatinine Ratio 14.0, Glucose 129 H, Calcium 8.0 L, TSH 0.59 02/26/22 04:52: Hemoglobin A1c 7.9 H 02/26/22 11:19: POC Glucose 23 L* 02/26/22 11:40: Glucose 190 H 02/26/22 11:40: Total Bilirubin 0.20, Direct Bilirubin 0.11, AST 9 L, ALT 13, Alkaline Phosphatase 118 H, Total Protein 5.7 L, Albumin 2.0 L, Globulin 3.7 02/26/22 11:57: POC Glucose 139 H 02/26/22 13:21: POC Glucose 95 02/26/22 15:08: POC Glucose 128 H 02/26/22 15:25: Hgb 8.1 L, Hct 26.5 L PLAN: Plan Physical exam General: Lethargic, mild drowsiness. Oriented x3. HEENT: Atraumatic, PERRLA, EOMI, Normocephalic Oral: No Gingival or Mucosal Lesions/ Ulcerations Neck: Supple, No JVD, Negative Carotid Bruits Lungs: Air entry diminished in bilateral lung bases. No crepitation/rhonchi Cardiovascular: Regular rate, Regular Rhythm, Normal S1, Normal S2, No murmurs Abdomen: Bowel Sounds Present, Soft, Non Tender, Non-Distended : No renal angle tenderness. No suprapubic tenderness. Extremities: Bilateral lower legs edema, covered with Daniel wrap bandage. C apillary Refill Less than 3 Seconds Skin: No rashes, No breakdown Musculoskeletal: No Tenderness to Palpation of Joints or Extremities, ROM restricted. Neurological: Cranial nerves II-XII grossly intact, DTR 2+/4, muscle strength not checked patient is drowsy and lethargic. Psych/Mental Status: Flat affect. Charges/Coding Visit Charges Inpatient E&M: 34504 Subs Hosp L3
[2022-02-26] MEDS: Juven (unflavored) Packet 1 PACKET PO (17:15)
[2022-02-26 18:01] LABS: Bedside Glucose 194 mg/dL (74-106)
[2022-02-26] MEDS: 0.45% Normal Saline 1,000 ML 100 ML IV (20:56)
[2022-02-26] MEDS: Aspirin 81 MG TAB.CHEW PO (21:17)
[2022-02-26] MEDS: Atorvastatin Calcium 40 MG Tablet PO (21:17)
[2022-02-26] MEDS: Ferrous Sulfate 325 MG Tablet PO (21:17)
[2022-02-26] MEDS: Sertraline 50 MG Tablet PO (21:18)
[2022-02-26] MEDS: Insulin Glargine-YFGN 100 UNIT/ML Pen 20 UNIT SC (22:44)
[2022-02-26 23:35] LABS: Bedside Glucose 343 mg/dL (74-106)
--- NOTE | 2022-02-26 23:57 | NURSING ---
O2 decreased to 2L NC - will monitor
[2022-02-27] MEDS: Ondansetron ODT 4 MG Tablet PO ×3 (02:56→16:40)
[2022-02-27 03:00] VITALS: BP 152/74; PULSE 66; RESP 18; TEMP 36.4; O2SAT 98
--- NOTE | 2022-02-27 03:02 | NURSING ---
O2 REMOVED - WILL RECHECK O2 SAT ON RA
[2022-02-27 06:04] LABS: Absolute Lymphocyte Count 1.25 X10^3/uL (0.83-4.51); Absolute Neutrophil Count 7.6 X10^3/uL (2.0-7.7); Basophil# 0.05 X10^3/uL; Basophil% 0.5 % (0-1); Eosinophil# 0.17 X10^3/uL; Eosinophils% 1.7 % (0-5); Hematocrit 24.2 % (37-47); Hemoglobin 7.7 g/dL (12.0-15.0); Lymphocyte # 1.25 X10^3/ul (0.83-4.51); Lymphocyte % 12.8 % (19-41); Mean Corp Hgb Conc 31.8 g/dL (32-36); Mean Corpuscular Hgb 28.2 pg (27.0-32.0); Mean Corpuscular Volume 88.6 fL (81-99); Mean Platelet Vol. 10.7 fl (6.2-12.0); Monocyte# 0.53 X10^3/uL; Monocyte% 5.4 % (0-10); NRBC Flagged by Analyzer 0 % (0-5); Neutrophil # 7.55 X10^3/uL (2.7-7.7); Neutrophil % 77.8 % (47-70); Platelet Count 296 K/mm3 (150-450); RBC Distribution Width CV 15.3 % (11.6-14.6); RBC Distribution Width SD 49.4 fl (35.1-43.9); Red Blood Count 2.73 M/mm3 (4.2-5.4); White Blood Count 9.7 K/mm3 (4.4-11.0)
[2022-02-27 06:30] LABS: BUN 61 mg/dL (7-18); BUN/Creat Ratio 15.9 RATIO (10-20); Calcium,Total 8.3 mg/dL (8.5-10.1); Chloride 107 mmol/L (98-107); Creatinine, Serum 3.83 mg/dL (0.55-1.02); EST Glomerular Filtration Rate 13 mL/min (>60); Est Glom Filt Rate - Afr Amer 16 mL/min (>60); Estimated Creatinine Clearance 14.23 ml/min; Glucose 282 mg/dL (74-106); Potassium 4.6 mmol/L (3.5-5.1); Sodium Level 137 mmol/L (136-145)
[2022-02-27 06:31] LABS: Anion Gap 6 (5-15)
[2022-02-27 06:37] VITALS: BP 164/80; PULSE 72; RESP 18; TEMP 36.4; O2SAT 94
[2022-02-27] MEDS: cloNIDine HCl 0.1 MG Tablet 0.3 MG PO ×3 (06:41→21:25)
[2022-02-27] MEDS: 0.45% Normal Saline 1,000 ML 100 ML IV (06:41)
[2022-02-27] MEDS: Juven (unflavored) Packet 1 PACKET PO ×2 (07:59→16:40)
[2022-02-27 10:00] VITALS: BP 147/77; PULSE 65; RESP 18; TEMP 36.3; O2SAT 95
[2022-02-27] MEDS: Ceftriaxone 1 GM/50 ML BAG IV (10:03)
[2022-02-27] MEDS: Pregabalin 50 MG Capsule PO ×2 (10:03→21:29)
[2022-02-27] MEDS: Heparin Injection (Vial) 5,000 UNIT/ML VIAL 5000 UNIT SC ×2 (10:03→21:26)
[2022-02-27] MEDS: dilTIAZem CD 180 MG Capsule PO (10:03)
[2022-02-27] MEDS: Pantoprazole Sodium 40 MG Tablet PO (10:04)
--- NOTE | 2022-02-27 11:28 | CASEMGMT ---
PRIYA CM in to pt room, pt sitting up in chair. Pt states that she would like to resume her [facility] services upon dc. She states she has SN, PT and OT. Pt states she was taking her medications as ordered after hospitalization. She had not yet had any medical appts though. She states she is scheduled to see on . Pt denies further homegoing needs. DC Plan: Resume HHC Clarified with Laura at [facility], pt was receiving SN and PT services.
[2022-02-27] MEDS: Insulin Glargine-YFGN 100 UNIT/ML Pen 25 UNIT SC (11:56)
--- NOTE | 2022-02-27 12:09 | PN.HOSP_ITS ---
Subjective Subjective Follow-up for acute kidney injury on CKD. Patient is more awake and alert. Responding simple question. She also pa rticipated in physical therapy. Objective Data Objective Data Vital Signs: Vital Signs Temp Pulse Resp BP Pulse Ox O2 Del Method O2 Flow Rate 97.3 F L 65 18 147/77 H 95 Room Air 1 02/27/22 10:00 02/27/22 10:00 02/27/22 10:00 02/27/22 10:00 02/27/22 10:00 02/27/22 10:00 02/27/22 03:00 Oxygen Flow Rate (L/min) 1 Oxygen Delivery Method Room Air Weight: 186 lb 4.65 oz Body Mass Index (BMI) 30.9 Intake & Output: Intake and Output for Last 24 Hours 02/25/22 02/26/22 02/27/22 23:59 23:59 23:59 Intake Total 0 / 0 4060.0 / 4060.0 1265 / 1265 Output Total 250 / 250 775 / 775 500 / 500 Balance 1800 / 1800 3285.0 / 3285.0 765 / 765 Lab / Micro Data Result Diagrams: 02/27/22 05:22 02/27/22 05:22 Labs: Laboratory Results - last 24 hr 02/26/22 11:40: Glucose 190 H 02/26/22 11:40: Total Bilirubin 0.20, Direct Bilirubin 0.11, AST 9 L, ALT 13, Alkaline Phosphatase 118 H, Total Protein 5.7 L, Albumin 2.0 L, Globulin 3.7 02/26/22 11:57: POC Glucose 139 H 02/26/22 13:21: POC Glucose 95 02/26/22 14:00: COVID-19 ([facility]) Not Detected 02/26/22 15:08: POC Glucose 128 H 02/26/22 15:25: Hgb 8.1 L, Hct 26.5 L 02/26/22 17:10: POC Glucose 194 H 02/26/22 20:53: POC Glucose 343 H 02/27/22 05:22: WBC 9.7, RBC 2.73 L, Hgb 7.7 L, Hct 24.2 L, MCV 88.6, MCH 28.2, MCHC 31.8 L, RDW Std Deviation 49.4 H, RDW Coeff of Chris 15.3 H, Plt Count 296, MPV 10.7, Immature Gran % (Auto) 1.800 H, Neut % (Auto) 77.8 H, Lymph % (Auto) 12.8 L, [place] % (Auto) 5.4, Eos % (Auto) 1.7, Baso % (Auto) 0.5, Absolute Neuts (auto) 7.6, Absolute Lymphs (auto) 1.25, Nucleated RBC % 0 02/27/22 05:22: Sodium 137, Potassium 4.6, Chloride 107, Carbon Dioxide 24.0, Anion Gap 6, BUN 61 H, Creatinine 3.83 H, Estim Creat Clear Calc 14.23, Est GFR (MDRD) Af Amer 16 L, Est GFR (MDRD) Non-Af 13 L, BUN/Creatinine Ratio 15.9, Glucose 282 H, Calcium 8.3 L Micro: Microbiology 02/25/22 11:45 Urine Catheter - Catheter Urine Culture - Final Enterobacter cloacae complex 02/26/22 14:00 Mucosa - Nose Respiratory Panel (PCR) - Final ABG Data ABG results: ABG 02/26/22 14:13 Specimen Type ART Sample Site L Brach pH 7.33 L Bicarbonate Actual 24.1 Total CO2 26 Base Excess -2 O2 Saturation 88 L ABG pCO2 46.0 H ABG pO2 59 L O2 Delivery Device Room Air Radiography Diagnostic Testing: Radiology Impression Brain CT 02/26/22 13:49 IMPRESSION: Chronic involutional changes of the brain. Electronically Signed: Angel Manley MD at 14:50 EST , Rhythm Strip Rhythm Strip: Sinus Rhythm Rate: 90 Ectopy: None Physical Exam Narrative Physical exam General: Alert, or awake, oriented x3. Patient has good comprehension. BMI 31.0 kg/m?, obesity grade 1. HEENT: Atraumatic, PERRLA, EOMI, Normocephalic Oral: No Gingival or Mucosal Lesions/ Ulcerations Neck: Supple, No JVD, Negative Carotid Bruits Lungs: Air entry diminished in bilateral lung bases. No crepitation/rhonchi Cardiovascular: Regular rate, Regular Rhythm, Normal S1, Normal S2, No murmurs Abdomen: Bowel Sounds Present, Soft, Non Tender, Non-Distended : No renal angle tenderness. No suprapubic tenderness. Extremities: Bilateral lower legs edema, covered with Daniel wrap bandage. Capillary Refill Less than 3 Seconds Skin: No rashes, No breakdown Musculoskeletal: No Tenderness to Palpation of Joints or Extremities, ROM restricted. Neurological: Cranial nerves II-XII grossly intact, DTR 2+/4, muscle strength not checked patient is drowsy and lethargic. Psych/Mental Status: Flat affect. Assessment & Plan Assessment/Plan (1) Acute kidney injury: PLAN: Exact etiology unclear possible prerenal, multifactorial with consideration of ATN, mild night baseline: She had urine output 275 mils since midnight. Baseline creatinine is 3 and she is 4.3. Hold furosemide. Continue IV fluids Monitor kidney function. 02/27: Patient had solid 75 mill urine output yesterday and 500 mL today. Urine output increasing. Positive fluid balance about 6 L. Improvement in creatinine 3.83. Microbiology Past 72 Hours 02/25/22 11:45 Urine Catheter - Catheter Urine Culture - Final Enterobacter cloacae complex 02/26/22 14:00 Mucosa - Nose Respiratory Panel (PCR) - Final Laboratory Results 02/26/22 11:40: Glucose 190 H 02/26/22 11:40: Total Bilirubin 0.20, Direct Bilirubin 0.11, AST 9 L, ALT 13, Alkaline Phosphatase 118 H, Total Protein 5.7 L, Albumin 2.0 L, Globulin 3.7 02/26/22 11:57: POC Glucose 139 H 02/26/22 13:21: POC Glucose 95 02/26/22 14:00: COVID-19 ([facility]) Not Detected 02/26/22 14:13: Specimen Type ART, Sample Site L Brach, pH 7.33 L, Bicarbonate Actual 24.1, Total CO2 26, Base Excess -2, O2 Saturation 88 L, ABG pCO2 46.0 H, ABG pO2 59 L, O2 Delivery Device Room Air 02/26/22 15:08: POC Glucose 128 H 02/26/22 15:25: Hgb 8.1 L, Hct 26.5 L 02/26/22 17:10: POC Glucose 194 H 02/26/22 20:53: POC Glucose 343 H 02/27/22 05:22: WBC 9.7, RBC 2.73 L, Hgb 7.7 L, Hct 24.2 L, MCV 88.6, MCH 28.2, MCHC 31.8 L, RDW Std Deviation 49.4 H, RDW Coeff of Chris 15.3 H, Plt Count 296, MPV 10.7, Immature Gran % (Auto) 1.800 H, Neut % (Auto) 77.8 H, Lymph % (Auto) 12.8 L, [place] % (Auto) 5.4, Eos % (Auto) 1.7, Baso % (Auto) 0.5, Absolute Neuts (auto) 7.6, Absolute Lymphs (auto) 1.25, Nucleated RBC % 0 02/27/22 05:22: Sodium 137, Potassium 4.6, Chloride 107, Carbon Dioxide 24.0, Anion Gap 6, BUN 61 H, Creatinine 3.83 H, Estim Creat Clear Calc 14.23, Est GFR (MDRD) Af Amer 16 L, Est GFR (MDRD) Non-Af 13 L, BUN/Creatinine Ratio 15.9, Glucose 282 H, Calcium 8.3 L (2) UTI (urinary tract infection): PLAN: Asymptomatic but urinalysis is definitively positive for UTI. Continue ceftriaxone. Urine culture preliminary GNR nonfermenting [id number] colonies. Urine culture reported [id number] Enterobacter cloacae sensitive to cefepime. Resistant to cefazolin. No fever therefore clinically patient is responding. Respiratory panel negative. (3) Diabetes mellitus with hyperglycemia: QUALIFIERS: Diabetes mellitus type: type 2 Diabetes mellitus continuous churn buttermaker insulin use: with continuous churn buttermaker use Qualified Code(s): E11.65 - Type 2 diabetes mellitus with hyperglycemia; Z79.4 - terminal operations supervisor (current) use of insulin PLAN: States that her blood sugar at home is controlled with blood sugars in the 200 range. This 400+ level is outside of her norm We will continue with her glargine, scheduled NovoLog as well as sliding scale insulin A1c 7.9%. she was hypoglycemic in the morning. Resuscitated with D50 and started on D5 half NS. 02/27: Hypoglycemia corrected yesterday and glucose is on the higher side, 343. Patient had Lantus last night. Lantus 2500 subcutaneous daily and low-dose Humalog insulin with meals along with sliding scale insulin coverage. Acute encephalopathy most probably metabolic multifactorial hypoglycemia, kidney failure: Even though BUN is not very high 57, BUN/creatinine ratio of 14. ABG was done, 7.3 on room air: Mild respiratory acidosis with hypoxia and increased AA gradient: Continue oxygen supplement. 02/27: Acute encephalopathy resolved. Total time of the visit including total time spent in counseling or coordination of care, (more than 50% of the total time, spent in obtaining medical in formation from nurses and other ancillary care providers,explaining to the patient about labs, imaging, diagnosis and management of active complex medical conditions), discussion with polymerization oven tender, review of labs and imaging is 40 minutes. Charges/Coding Visit Charges Inpatient E&M: 09069 Subs Hosp L3
[2022-02-27 12:14] LABS: Bedside Glucose 300 mg/dL (74-106)
[2022-02-27 12:14] LABS: Bedside Glucose 278 mg/dL (74-106)
[2022-02-27 12:56] LABS: Magnesium 1.9 mg/dL (1.6-2.6); Phosphorus 4.2 mg/dL (2.5-4.9)
--- NOTE | 2022-02-27 13:19 | CASEMGMT ---
Pt screened with [facility] Palliative Care Screening Tool, pt met criteria but pt declined services. No order obtained.
[2022-02-27] MEDS: traMADol 50 MG Tablet PO ×2 (13:34→21:27)
--- NOTE | 2022-02-27 13:58 | PN.RENAL_ITS ---
Subjective Subjective Following for ALMA on CKD Patient is sitting in chair, eating lunch. Denies any complaints. No recent nausea, vomiting or diarrhea. Denies hematuria or dysuria. Objective Data Objective Data Vital Signs: Vital Signs Temp Pulse Resp BP Pulse Ox O2 Del Method O2 Flow Rate 97.3 F L 65 18 147/77 H 95 Room Air 1 02/27/22 10:00 02/27/22 10:00 02/27/22 10:00 02/27/22 10:00 02/27/22 10:00 02/27/22 10:00 02/27/22 03:00 Oxygen Flow Rate (L/min) 1 Oxygen Delivery Method Room Air Weight: 84.5 kg Body Mass Index (BMI) 30.9 Intake & Output: Intake and Output for Last 24 Hours 02/25/22 02/26/22 02/27/22 23:59 23:59 23:59 Intake Total 0 / 0 4060.0 / 4060.0 1265 / 1265 Output Total 250 / 250 775 / 775 500 / 500 Balance 1800 / 1800 3285.0 / 3285.0 765 / 765 Lab / Micro Data Result Diagrams: 02/27/22 05:22 02/27/22 05:22 Labs: Laboratory Results - last 24 hr 02/26/22 11:40: Total Bilirubin 0.20, Direct Bilirubin 0.11, AST 9 L, ALT 13, Alkaline Phosphatase 118 H, Total Protein 5.7 L, Albumin 2.0 L, Globulin 3.7 02/26/22 14:00: COVID-19 ([facility]) Not Detected 02/26/22 15:08: POC Glucose 128 H 02/26/22 15:25: Hgb 8.1 L, Hct 26.5 L 02/26/22 17:10: POC Glucose 194 H 02/26/22 20:53: POC Glucose 343 H 02/27/22 05:22: WBC 9.7, RBC 2.73 L, Hgb 7.7 L, Hct 24.2 L, MCV 88.6, MCH 28.2, MCHC 31.8 L, RDW Std Deviation 49.4 H, RDW Coeff of Chris 15.3 H, Plt Count 296, MPV 10.7, Immature Gran % (Auto) 1.800 H, Neut % (Auto) 77.8 H, Lymph % (Auto) 12.8 L, [place] % (Auto) 5.4, Eos % (Auto) 1.7, Baso % (Auto) 0.5, Absolute Neuts (auto) 7.6, Absolute Lymphs (auto) 1.25, Nucleated RBC % 0 02/27/22 05:22: Sodium 137, Potassium 4.6, Chloride 107, Carbon Dioxide 24.0, Anion Gap 6, BUN 61 H, Creatinine 3.83 H, Estim Creat Clear Calc 14.23, Est GFR (MDRD) Af Amer 16 L, Est GFR (MDRD) Non-Af 13 L, BUN/Creatinine Ratio 15.9, Glucose 282 H, Calcium 8.3 L 02/27/22 05:22: Phosphorus 4.2, Magnesium 1.9 02/27/22 06:46: POC Glucose 278 H 02/27/22 11:17: POC Glucose 300 H Micro: Microbiology 02/25/22 11:45 Urine Catheter - Catheter Urine Culture - Final Enterobacter cloacae complex 02/26/22 14:00 Mucosa - Nose Respiratory Panel (PCR) - Final ABG Data ABG results: ABG 02/26/22 14:13 Specimen Type ART Sample Site L Brach pH 7.33 L Bicarbonate Actual 24.1 Total CO2 26 Base Excess -2 O2 Saturation 88 L ABG pCO2 46.0 H ABG pO2 59 L O2 Delivery Device Room Air Radiography Diagnostic Testing: Radiology Impression Brain CT 02/26/22 13:49 IMPRESSION: Chronic involutional changes of the brain. Electronically Signed: Angel Manley MD at 14:50 EST , Rhythm Strip Rhythm Strip: Sinus Rhythm Rate: 90 Ectopy: None Physical Exam Narrative Const: A&Ox3. No apparent distress. Sitting in chair Respiratory: Lung sounds clear anteriorly and posteriorly; no wheezes, rhonchi or rales noted Cardio: S1, S2, RRR GI: Abdomen soft, nontender, positive bowel sounds Extremities: Daniel wraps intact to bilateral lower legs from knees to feet. Trace edema noted above Daniel wraps Assessment & Plan Assessment/Plan (1) Acute kidney injury: (2) UTI (urinary tract infection): (3) Diabetes mellitus with hyperglycemia: QUALIFIERS: Diabetes mellitus type: type 2 Diabetes mellitus detention insulin use: with detention use Qualified Code(s): E11.65 - Type 2 anoop betes mellitus with hyperglycemia; Z79.4 - recreation facility manager (current) use of insulin (4) CKD (chronic kidney disease) stage 4, GFR 15-29 ml/min: PLAN: Plan - Nonoliguric, mildly hypovolemic ALMA superimposed on CKD. Likely ALMA multifactorial and is prerenal from UTI, hyperglycemia with possible concurrent diuretic use. Creatinine peaked at 4.30 mg/dL on admission, today creatinine improved 3.83 mg/dL. No hyperkalemia and acid/base acceptable. No acute indication for SHRIMP PEELING MACHINE TENDER. Continue holding lasix. Continue IVF for another day at decreased rate. During last hospitalization in mid December serum creatinine leveled off to 2.7 mg/dL (creatinine had peaked at 3.23 mg/dL). From mid December to February 14 serum creatinine still ranging around 2.7 mg/dL. Patient did have lab work on 02/19/2022 which showed creatinine of 3.14 mg/dL. Patient reports at this time she was on Lasix. - CKD stage 4: Patient had work-up during last hospitalization which included ur ine protein creatinine ratio of 1.3 g, albumin was 1.6. Renal ultrasound did not show any acute pathology, no hydronephrosis, mass or calculi. 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 Hemoglobin A1c 13.9% on 01/08/2022. In reviewing past creatinine trends since 2019 to January 2021 baseline creatinine has been ranging around 1.3 mg/dL. Last admission creatinine leveled off around 2.7 mg/dL. - Hyperglycemic on admission but then noted hypoglycemia yesterday therefore started on D5 at 100 mL an hour. She is now on NS at 100ml/hr. Can continue for today but will decrease rate and likely can stop IVF altogether tomorrow. Encouraged patient to increase solute and fluid intake. - Blood pressure is acceptable and improved. Continue clonidine, diltiazem. Patient had echo few weeks ago: Mild concentric left ventricular hypertrophy, normal LV size, mild global left ventricular systolic dysfunction, EF 45%, diastolic function is indeterminate. Patient has history of lymphedema, her legs are wrapped. She had venous duplex of lower extremity on 02/02/2022 with findings: No evidence of right or left lower extremity deep venous thrombosis. -Iron deficiency anemia -UTI: IV antibiotics for UTI, ceftriaxone. Urine culture Enterobacter cloacae complex.
[2022-02-27 14:31] VITALS: BP 174/77; PULSE 78; RESP 18; TEMP 36.7; O2SAT 96
[2022-02-27] MEDS: Insulin Lispro 100 UNIT/ML INSULN.PEN SC ×3 (16:32→21:26)
[2022-02-27] MEDS: 0.45% Normal Saline 1,000 ML 75 ML IV (16:40)
[2022-02-27 17:16] LABS: Bedside Glucose 298 mg/dL (74-106)
[2022-02-27 19:37] VITALS: BP 166/68; PULSE 80; RESP 17; TEMP 37.5; O2SAT 95
[2022-02-27] MEDS: Aspirin 81 MG TAB.CHEW PO (21:25)
[2022-02-27] MEDS: Ferrous Sulfate 325 MG Tablet PO (21:25)
[2022-02-27] MEDS: Sertraline 50 MG Tablet PO (21:27)
[2022-02-27] MEDS: Atorvastatin Calcium 40 MG Tablet PO (21:27)
[2022-02-27 22:25] LABS: Bedside Glucose 178 mg/dL (74-106)
[2022-02-28 01:56] VITALS: BP 152/66; PULSE 76; RESP 16; TEMP 37.2; O2SAT 95
[2022-02-28] MEDS: Ondansetron ODT 4 MG Tablet PO ×2 (01:57→08:47)
[2022-02-28] MEDS: 0.45% Normal Saline 1,000 ML 75 ML IV (06:05)
[2022-02-28] MEDS: cloNIDine HCl 0.1 MG Tablet 0.3 MG PO ×2 (06:06→13:33)
[2022-02-28] MEDS: traMADol 50 MG Tablet PO (06:06)
[2022-02-28 06:56] LABS: Absolute Lymphocyte Count 1.21 X10^3/uL (0.83-4.51); Absolute Neutrophil Count 7.2 X10^3/uL (2.0-7.7); Basophil# 0.05 X10^3/uL; Basophil% 0.5 % (0-1); Eosinophils% 3.2 % (0-5); Hematocrit 22.8 % (37-47); Hemoglobin 7.3 g/dL (12.0-15.0); Lymphocyte # 1.21 X10^3/ul (0.83-4.51); Lymphocyte % 12.8 % (19-41); Mean Corpuscular Hgb 28.3 pg (27.0-32.0); Mean Corpuscular Volume 88.4 fL (81-99); Mean Platelet Vol. 10.5 fl (6.2-12.0); Monocyte# 0.58 X10^3/uL; Monocyte% 6.1 % (0-10); NRBC Flagged by Analyzer 0 % (0-5); Neutrophil # 7.19 X10^3/uL (2.7-7.7); Neutrophil % 76.2 % (47-70); Platelet Count 324 K/mm3 (150-450); RBC Distribution Width SD 48.8 fl (35.1-43.9); Red Blood Count 2.58 M/mm3 (4.2-5.4); White Blood Count 9.4 K/mm3 (4.4-11.0)
[2022-02-28 07:22] LABS: Anion Gap 7 (5-15); BUN 62 mg/dL (7-18); BUN/Creat Ratio 16.9 RATIO (10-20); Calcium,Total 8.3 mg/dL (8.5-10.1); Chloride 105 mmol/L (98-107); Creatinine, Serum 3.67 mg/dL (0.55-1.02); EST Glomerular Filtration Rate 13 mL/min (>60); Est Glom Filt Rate - Afr Amer 16 mL/min (>60); Estimated Creatinine Clearance 14.85 ml/min; Glucose 202 mg/dL (74-106); Potassium 4.8 mmol/L (3.5-5.1); Sodium Level 135 mmol/L (136-145)
[2022-02-28 07:36] VITALS: BP 169/80; PULSE 80; RESP 18; TEMP 37.4; O2SAT 93
[2022-02-28 07:50] VITALS: O2SAT 95
[2022-02-28 08:00] VITALS: O2SAT 95
[2022-02-28 08:16] LABS: Bedside Glucose 184 mg/dL (74-106)
[2022-02-28 08:41] VITALS: TEMP 37
[2022-02-28] MEDS: Pregabalin 50 MG Capsule PO (08:47)
[2022-02-28] MEDS: Acetaminophen 325 MG Tablet 650 MG PO (08:47)
[2022-02-28] MEDS: Heparin Injection (Vial) 5,000 UNIT/ML VIAL 5000 UNIT SC (08:47)
[2022-02-28] MEDS: dilTIAZem CD 180 MG Capsule PO (08:47)
[2022-02-28] MEDS: Pantoprazole Sodium 40 MG Tablet PO (08:47)
[2022-02-28] MEDS: Juven (unflavored) Packet 1 PACKET PO (08:47)
[2022-02-28] MEDS: Insulin Lispro 100 UNIT/ML INSULN.PEN SC ×2 (08:48)
[2022-02-28] MEDS: Insulin Glargine-YFGN 100 UNIT/ML Pen 25 UNIT SC (08:49)
[2022-02-28] MEDS: Ceftriaxone 1 GM/50 ML BAG IV (08:54)
--- NOTE | 2022-02-28 08:55 | PCM.PN.REN ---
Subjective Subjective Following for ALMA on CKD Patient is sitting in chair. Denies any complaints. No recent nausea, vomiting or diarrhea. Reports good appetite. Objective Data Objective Data Vital Signs: Vital Signs Temp Pulse Resp BP Pulse Ox O2 Del Method O2 Flow Rate 98.6 F 80 18 169/80 H 93 Room Air 1 02/28/22 08:41 02/28/22 07:36 02/28/22 07:36 02/28/22 07:36 02/28/22 07:36 02/28/22 07:36 02/27/22 03:00 Oxygen Flow Rate (L/min) 1 Oxygen Delivery Method Room Air Weight: 84.5 kg Body Mass Index (BMI) 30.9 Intake & Output: Intake and Output for Last 24 Hours 02/26/22 02/27/22 02/28/22 23:59 23:59 23:59 Intake Total 4060.0 / 4060.0 2221.25 / 2461.25 1360 / 1360 Output Total 775 / 775 750 / 1050 750 / 750 Balance 3285.0 / 3285.0 1471.25 / 1411.25 610 / 610 Lab / Micro Data Result Diagrams: 02/28/22 06:10 02/28/22 06:10 Labs: Laboratory Results - last 24 hr 02/27/22 05:22: Phosphorus 4.2, Magnesium 1.9 02/27/22 06:46: POC Glucose 278 H 02/27/22 11:17: POC Glucose 300 H 02/27/22 16:30: POC Glucose 298 H 02/27/22 21:22: POC Glucose 178 H 02/28/22 06:10: WBC 9.4, RBC 2.58 L, Hgb 7.3 L, Hct 22.8 L, MCV 88.4, MCH 28.3, MCHC 32.0, RDW Std Deviation 48.8 H, RDW Coeff of Chris 15.0 H, Plt Count 324, MPV 10.5, Immature Gran % (Auto) 1.200 H, Neut % (Auto) 76.2 H, Lymph % (Auto) 12.8 L, [place] % (Auto) 6.1, Eos % (Auto) 3.2, Baso % (Auto) 0.5, Absolute Neuts (auto) 7.2, Absolute Lymphs (auto) 1.21, Nucleated RBC % 0 02/28/22 06:10: Sodium 135 L, Potassium 4.8, Chloride 105, Carbon Dioxide 23.0, Anion Gap 7, BUN 62 H, Creatinine 3.67 H, Estim Creat Clear Calc 14.85, Est GFR (MDRD) Af Amer 16 L, Est GFR (MDRD) Non-Af 13 L, BUN/Creatinine Ratio 16.9, Glucose 202 H, Calcium 8.3 L 02/28/22 07:32: POC Glucose 184 H Micro: Microbiology 02/25/22 11:45 Urine Catheter - Catheter Urine Culture - Final Enterobacter cloacae complex 02/26/22 14:00 Mucosa - Nose Respiratory Panel (PCR) - Final Rhythm Strip Rhythm Strip: Sinus Rhythm Rate: 90 Ectopy: None Physical Exam Narrative Const: A&Ox3. No apparent distress. Sitting in chair Respiratory: Lung sounds clear anteriorly and posteriorly; no wheezes, rhonchi or rales noted Cardio: S1, S2, RRR GI: Abdomen soft, nontender, positive bowel sounds Extremities: Daniel wraps intact to bilateral lower legs from knees to feet; edema noted above Daniel wraps Assessment & Plan Assessment/Plan (1) Acute kidney injury: (2) UTI (urinary tract infection): (3) Diabetes mellitus with hyperglycemia: QUALIFIERS: Diabetes mellitus type: type 2 Diabetes mellitus terminal makeup operator insulin use: with [facility] use Qualified Code(s): E11.65 - Type 2 diabetes mellitus with hyperglycemia; Z79.4 - technician terminal and repeater (current) use of insulin (4) CKD (chronic kidney disease) stage 4, GFR 15-29 ml/min: PLAN: Plan - Nonoliguric, mildly hypovolemic ALMA superimposed on CKD. Likely ALMA multifactorial and is prerenal from UTI, hyperglycemia with possible concurrent diuretic use. Creatinine peaked at 4.30 mg/dL on admission, today creatinine improved 3.67 mg/dL. No hyperkalemia and acid/base acceptable. 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 Continue holding lasix. Will stop IVF. Patient aware importance of not taking NSAIDs. During last hospitalization in mid December serum creatinine leveled off to 2.7 mg/dL (creatinine had peaked at 3.23 mg/dL). From mid December to February 14 serum creatinine still ranging around 2.7 mg/dL. Patient did have lab work on 02/19/2022 which showed creatinine of 3.14 mg/dL and patient reports at this time she was on Lasix. - CKD stage 4: Patient had work-up during last hospitalization which included urine protein creatinine ratio of 1.3 g, albumin was 1.6. Renal ultrasound did not show any acute pathology, no hydronephrosis, mass or calculi. 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 Hemoglobin A1c 13.9% on 01/08/2022. In reviewing past creatinine trends since 2019 to January 2021 baseline creatinine has been ranging around 1.3 mg/dL. Last admission creatinine leveled off around 2.7 mg/dL. - Hyperglycemic on admission but then noted hypoglycemia. BS have improved. Encouraged patient to increase solute and fluid intake. - Blood pressure is acceptable and improved. Continue clonidine, diltiazem. Patient had echo few weeks ago: Mild concentric left ventricular hypertrophy, normal LV size, mild global left ventricular systolic dysfunction, EF 45%, diastolic function is indeterminate. Patient has history of lymphedema, her legs are wrapped. She had venous duplex of lower extremity on 02/02/2022 with findings: No evidence of right or left lower extremity deep venous thrombosis. -Iron deficiency anemia -UTI: IV antibiotics for UTI, ceftriaxone. Urine culture Enterobacter cloacae complex. - will arrange for hospital follow up
--- NOTE | 2022-02-28 10:06 | DCINST_ITS ---
Discharge Instructions Diet Discharge Diet: No restrictions Dressing / Incision Call your doctor if you observe: Fever of 101 or Higher, Coldness, Increased Pain, Numbness or Tingling, Change in Color, Inability to urinate, Inability to have a bowel movement, Using more than 1 pad per hour, Shortness of breath, Dizziness, Fainting spells, Swelling in the ankles, Chest pain, Prolonged hiccupping, Increased palpitations (irregular heartbeat), Calf discomfort and Uncontrolled pain Follow Up Care Test Results: Test results from this visit will be discussed in further detail at your follow- up appointment, if applicable. Discharge Plan Admission Admit Date/Time: 02/25/22 13:10 Primary Reason for Your Visit: ALMA on CKD stage IV Attending Provider: Go Maots Primary Care Provider: Dennys Serrano Consulting Providers: Arnold Ruiz ; Cora Gilbert Discharge Orders/Prescriptions Prescriptions: Continued diltiazem HCl 180 MG capsule 180 mg PO DAILY pantoprazole 40 MG tablet 40 mg PO DAILY atorvastatin 40 MG tablet 40 mg PO QHS aspirin 81 MG tablet,chewable 81 mg PO QHS clonidine HCl 0.3 MG tablet 0.3 mg PO TID insulin lispro [Humalog KwikPen Insulin] 100 unit/mL insulin pen 8 unit subcut TIDCM tramadol 50 mg tablet 50 mg PO BID PRN (Reason: Pain) sertraline 50 mg tablet 50 mg PO QHS ondansetron 4 mg tablet,disintegrating 4 mg PO Q8H ferrous sulfate [FeroSul] 325 mg (65 mg iron) tablet 325 mg PO QHS polyethylene glycol 3350 17 gram powder in packet 17 g PO DAILY PRN (Reason: Constipation) pregabalin 75 mg capsule 50 mg PO BID Changed insulin glargine-yfgn 100 unit/mL (3 mL) insulin pen 25 unit subcut QHS Qty: 15 0RF Discontinued furosemide [Lasix] 40 mg tablet 40 mg PO DAILY Qty: 30 0RF Referrals / Follow Up: David Teixeira MD [Med Staff - Consulting] - Within 1 Week Dennys Serrano MD [Primary Care Provider] - Within 2 Weeks Disposition Disposition (needs filled in before D/C Order can be placed): Home Health Service
--- NOTE | 2022-02-28 10:18 | DS.PCM_ITS ---
Providers Date of Admission: 02/25/22 Date of Discharge: 02/28/22 Primary Care Physician: Dr. Dennys Serrano MD Consultations 02/25/22 19:24 Consult: Onc/Wound/cinema operator Routine Comment: Reason for Consult:: WOUND MANAGEMENT 02/26/22 10:13 Consult: Nephrology Routine Consulting Provider: Cora Gilbert Reason for Consult: alma on ckd G4 EMERGENT Consult: No MD Notified: Yes Date Notified: 02/26/22 Time Notified: 10:13 Method of Notification: Text Reason For Visit: UTI, ALMA Diagnosis Discharge Diagnosis (1) Acute kidney injury: Status: Acute Code(s): N17.9 - Acute kidney failure, unspecified (2) UTI (urinary tract infection): Status: Acute Code(s): N39.0 - Urinary tract infection, site not specified Plan: Asymptomatic but urinalysis is definitively positive for UTI. Continue ceftriaxone. Urine culture preliminary GNR nonfermenting [id number] colonies. Urine culture reported [id number] Enterobacter cloacae sensitive to cefepime. Resistant to cefazolin. No fever therefore clinically patient is responding. Respiratory panel negative. (3) Diabetes mellitus with hyperglycemia: Status: Acute Code(s): E11.65 - Type 2 diabetes mellitus with hyperglycemia Qualifiers: Diabetes mellitus type: type 2 Diabetes mellitus digital learning platforms manager insulin use: with digital learning platforms manager use Qualified Code(s): E11.65 - Type 2 diabetes mellitus with hyperglycemia; Z79.4 - horticultural therapist (current) use of insulin Plan: States that her blood sugar at home is controlled with blood sugars in the 200 range. This 400+ level is outside of her norm We will continue with her glargine, scheduled NovoLog as well as sliding scale insulin A1c 7.9%. she was hypoglycemic in the morning. Resuscitated with D50 and started on D5 half NS. 02/27: Hypoglycemia corrected yesterday and glucose is on the higher side, 343. Patient had Lantus last night. Lantus 2500 subcutaneous daily and low-dose Humalog insulin with meals along with sliding scale insulin coverage. Acute encephalopathy most probably metabolic multifactorial hypoglycemia, kidney failure: Even though BUN is not very high 57, BUN/creatinine ratio of 14. ABG was done, 7.3 / on room air: Mild respiratory acidosis with hypoxia and increased AA gradient: Continue oxygen supplement. 02/27: Acute encephalopathy resolved. Total time of the visit including total time spent in counseling or coordination of care, (more than 50% of the total time, spent in obtaining medical information from nurses and other ancillary care providers,explaining to the patient about labs, imaging, diagnosis and management of active complex medical conditions), discussion with open pit quarry supervisor, review of labs and imaging is 40 minutes. (4) CKD (chronic kidney disease) stage 4, GFR 15-29 ml/min: Status: Chronic Code(s): N18.4 - Chronic kidney disease, stage 4 (severe) Medications at Discharge Home Medications diltiazem HCl 180 mg capsule,extended release 24 hr 180 mg PO DAILY blood pressure 12/17/18 aspirin 81 mg chewable tablet 81 mg PO QHS HEART HEALTH 12/15/19 atorvastatin 40 mg tablet 40 mg PO QHS CHOLESTEROL 12/15/19 pantoprazole 40 mg tablet,delayed release 40 mg PO DAILY GERD 12/15/19 clonidine HCl 0.3 mg tablet 0.3 mg PO TID BLOOD PRESSURE 01/06/22 insulin lispro 100 unit/mL subcutaneous pen (Humalog KwikPen (U-100) Insulin) 8 unit subcut TIDCM diabetes 01/06/22 sertraline 50 mg tablet 50 mg PO QHS DEPRESSION 01/06/22 tramadol 50 mg tablet 50 mg PO BID PRN Pain 01/06/22 ferrous sulfate 325 mg (65 mg iron) tablet (FeroSul) 325 mg PO QHS SUPPLEMENT 02/13/22 ondansetron 4 mg disintegrating tablet 4 mg PO Q8H NAUSEA 02/13/22 polyethylene glycol 3350 17 gram oral powder packet 17 g PO DAILY PRN Constipation 02/13/22 pregabalin 75 mg capsule 50 mg PO BID PAIN 02/25/22 insulin glargine-yfgn 100 unit/mL (3 mL) subcutaneous pen 25 unit (0.25 mL) subcut QHS DIABETES #15 mL 02/28/22 Hospital Course Summary of Care Provided Hospital Course: This is a 61-year-old female who was admitted with hyperglycemia for glucose more than 100 at home. In the ED, it was found [place] to 16 mg/dL was given NovoLog 10 units. Patient also found to have UTI and started on IV ceftriaxone. Patient baseline creatinine is around 4. He was found to have ALMA on CKD stage IV further admitted. 1) Acute kidney injury: Exact etiology unclear possible prerenal, multifactorial with consideration of ATN,? mild night baseline: She had urine output 275 mils since midnight. Baseline creatinine is 3 and she is 4.3.? Hold furosemide.? Continue IV fluids Monitor kidney function. 02/27: Patient had solid 75 mill urine output yesterday and 500 mL today.? Urine output increasing.? Positive fluid balance about 6 L.? Improvement in creatinine 3.83. (2) UTI (urinary tract infection): Asymptomatic but urinalysis is definitively positive for UTI. Continue ceftriaxone.? Urine culture reported [id number] Enterobacter cloacae sensitive to cefepime.? Resistant to cefazolin.? No fever therefore clinically patient is responding.? Respiratory panel negative. (3) Diabetes mellitus 2 with hyperglycemia: Complicated with hypoglycemia: The patient States that her blood sugar at home is controlled with blood sugars in the 200 range.? This 400+ level is outside of her norm. continue with her glargine, scheduled NovoLog as well as sliding scale insulin A1c 7.9%. ? she was hypoglycemic in the morning.? Resuscitated with D50 and started on D5 half NS. 02/27: Hypoglycemia corrected yesterday and glucose is on the higher side, 343.? Patient had Lantus last night.? Lantus 2500 subcutaneous daily and low-dose Humalog insulin with meals along with sliding scale insulin coverage. 4. Acute encephalopathy most probably metabolic multifactorial hypoglycemia, ki dney failure: Even though BUN is not very high 57, BUN/creatinine ratio of 14.? ABG was done, 7.3 / on room air: Mild respiratory acidosis with hypoxia and increased AA gradient: Continue oxygen supplement. 02/27: Acute encephalopathy resolved. Discharge medication reconciliation done. Discharge follow-up instructions completed. Discharge process discussed with the patient and all questions were answered to patient's satisfaction. F/U with Direct Marketing Coordinator in 1-2 weeks Total time spent, exact 35 minutes on discharge meds reconciliation, examination, coordination of care with nurses and ancillary staff, review of imaging and blood test and discussion with the patient on follow-up i nstructions. Physical Exam Narrative No acute issues. Glucose is better controlled. Physical exam General: Alert, or awake, oriented x3. BMI 31.0 kg/m?, obesity grade 1. HEENT: Atraumatic, PERRLA, EOMI, Normocephalic Oral: No Gingival or Mucosal Lesions/ Ulcerations Neck: Supple, No JVD, Negative Carotid Bruits Lungs: Air entry diminished in bilateral lung bases. No crepitation/rhonchi Cardiovascular: Regular rate, Regular Rhythm, Normal S1, Normal S2, No murmurs Abdomen: Bowel Sounds Present, Soft, Non Tender, Non-Distended : No renal angle tenderness. No suprapubic tenderness. Extremities: Bilateral lower legs edema, covered with Daniel wrap bandage, improved. Capillary Refill Less than 3 Seconds Skin: No rashes, No breakdown Musculoskeletal: No Tenderness to Palpation of Joints or Extremities, ROM res tricted. Neurological: Cranial nerves II-XII grossly intact, DTR 2+/4, muscle strength not checked patient is drowsy and lethargic. Psych/Mental Status: Flat affect. Weight / BMI Weight Weight: 186 lb 4.65 oz Body Mass Index (BMI) 30.9 ABG / Lab / Microbiology Data Result Diagrams: 02/28/22 06:10 02/28/22 06:10 Laboratory: Laboratory Results - last 24 hr 02/27/22 05:22: Phosphorus 4.2, Magnesium 1.9 02/27/22 06:46: POC Glucose 278 H 02/27/22 11:17: POC Glucose 300 H 02/27/22 16:30: POC Glucose 298 H 02/27/22 21:22: POC Glucose 178 H 02/28/22 06:10: WBC 9.4, RBC 2.58 L, Hgb 7.3 L, Hct 22.8 L, MCV 88.4, MCH 28.3, MCHC 32.0, RDW Std Deviation 48.8 H, RDW Coeff of Chris 15.0 H, Plt Count 324, MPV 10.5, Immature Gran % (Auto) 1.200 H, Neut % (Auto) 76.2 H, Lymph % (Auto) 12.8 L, [place] % (Auto) 6.1, Eos % (Auto) 3.2, Baso % (Auto) 0.5, Absolute Neuts (auto) 7.2, Absolute Lymphs (auto) 1.21, Nucleated RBC % 0 02/28/22 06:10: Sodium 135 L, Potassium 4.8, Chloride 105, Carbon Dioxide 23.0, Anion Gap 7, BUN 62 H, Creatinine 3.67 H, Estim Creat Clear Calc 14.85, Est GFR (MDRD) Af Amer 16 L, Est GFR (MDRD) Non-Af 13 L, BUN/Creatinine Ratio 16.9, Glucose 202 H, Calcium 8.3 L 02/28/22 07:32: POC Glucose 184 H Microbiology: Microbiology 02/25/22 11:45 Urine Catheter - Catheter Urine Culture - Final Enterobacter cloacae complex 02/26/22 14:00 Mucosa - Nose Respiratory Panel (PCR) - Final D/C Instructions Discharge Diet: No restrictions Call your doctor if you observe: Fever of 101 or Higher, Coldness, Increased Pain, Numbness or Tingling, Change in Color, Inability to urinate, Inability to have a bowel movement, Using more than 1 pad per hour, Shortness of breath, Dizziness, Fainting spells, Swelling in the ankles, Chest pain, Prolonged hiccupping, Increased palpitations (irregular heartbeat), Calf discomfort and Uncontrolled pain Meaningful Use Info Meaningful Use Diagnoses (Choose all that apply): None applicable Discharge Plan Admission Admit Date/Time: 02/25/22 13:10 Primary Reason for Your Visit: ALMA on CKD stage IV Attending Provider: Go Matos Primary Care Provider: Dennys Serrano Consulting Providers: Arnold Ruiz ; Cora Gilbert Discharge Orders/Prescriptions Prescriptions: Continued diltiazem HCl 180 MG capsule 180 mg PO DAILY pantoprazole 40 MG tablet 40 mg PO DAILY atorvastatin 40 MG tablet 40 mg PO QHS aspirin 81 MG tablet,chewable 81 mg PO QHS clonidine HCl 0.3 MG tablet 0.3 mg PO TID insulin lispro [Humalog KwikPen Insulin] 100 unit/mL insulin pen 8 unit subcut TIDCM tramadol 50 mg tablet 50 mg PO BID PRN (Reason: Pain) sertraline 50 mg tablet 50 mg PO QHS ondansetron 4 mg tablet,disintegrating 4 mg PO Q8H ferrous sulfate [FeroSul] 325 mg (65 mg iron) tablet 325 mg PO QHS polyethylene glycol 3350 17 gram powder in packet 17 g PO DAILY PRN (Reason: Constipation) pregabalin 75 mg capsule 50 mg PO BID Changed insulin glargine-yfgn 100 unit/mL (3 mL) insulin pen 25 unit subcut QHS Qty: 15 0RF Discontinued furosemide [Lasix] 40 mg tablet 40 mg PO DAILY Qty: 30 0RF Referrals / Follow Up: David Teixeira MD [Med Staff - Consulting] - Within 1 Week Dennys Serrano MD [Primary Care Provider] - Within 2 Weeks Disposition Disposition (needs filled in before D/C Order can be placed): Home Health Service Charges/Coding Visit Charges Inpatient E&M: 72112 Disch Hosp
--- NOTE | 2022-02-28 10:29 | CASEMGMT ---
Addendum entered by Chelle Hagen 02/28/22 14:04: Correction: Notes stating son should state sig other. Addendum entered by Chelle Hagen 02/28/22 13:57: PRIYA SILVA in to pt room, pt states son will not be off work until 6pm now. Clarified with patient as earlier she states he was off at 1pm. Pt states she tried to call [place] for transportation home without success. Pt asked if PRIYA SILVA could set up transport home and her neighbors will help her in the house. Discussed with pt concerns of her going home with no one present. Saw pt trf from chair to BSC with RN. Pt with great difficulty in doing this. Updated SW who will also speak with pt. Original Note: PRIYA SILVA notified by pt nurse that pt is Ax2. PRIYA CM into pt room, pt states she doesn't necessarily feel weaker but that she feels slower. Pt states her son is gone from 8-1pm daily but otherwise is home. She states she has friends and her brother and sister in law who can assist her. Pt denies need for s/t therapy. Pt wants to go home with [facility] resuming. Pt to call son for transportation home. Updated Laura at [facility] that pt will be dc'd today.
[2022-02-28 11:45] LABS: Bedside Glucose 149 mg/dL (74-106)
[2022-02-28 13:32] VITALS: BP 150/71; PULSE 72; RESP 18; TEMP 36.8; O2SAT 97
--- NOTE | 2022-02-28 14:06 | CASEMGMT ---
Social Work SW asked by RN SHIRA to speak to pt regarding placement. Pt has been refusing SNF placement, however is requiring max assist x2 for most tasks. Staff are concerned pt will not be able to care for self. Pt reports neighbors will be available to assist and has their numbers on speed dial. SW asked if neighbors will be available for 24 hour care as pt cannot even stand by self without assistance. Pt followed up with stating has life alert button. Pt reports is on the way to transport pt home. SW asked if pt has been to SNF before or what hesistancy might be for going to SNF to have therapy. Pt stated was at [facility] in the past and was not treated well. Shared that the previous SW told pt that [facility] was only SNF option. This SW asked if pt had alternative options for SNF if would be willing to consider. Pt declined a list and stated would not look at it. SHARON Pelaez
--- NOTE | 2022-02-28 14:29 | CASEMGMT ---
Social Work SW, pt nurse and HAND BLOCKER Charleen in to pt room to discuss concerns with pt and SO. SW discussed concerns of pt going home while requiring max assist x2 or more at times. Pt SO became upset and aggressive with this SW. SO stated pt was forced to go to SNF at [facility] last visit and will not be forced to go this time. SW attempted to calm SO and explain concern for pt. SO stated pt made choice to go home and will not be going to [facility]. SW offered assistance if pt/SO changes mind before discharge. Dispo: Home SHARON Pelaez
--- NOTE | 2022-03-01 09:13 | CASEMGMT ---
Social Work ASHANTI received voicemail from Armani Luu CM at [facility]. Bell requested discharge information be sent when pt leaves hospital. ASHANTI faxed discharge summary to [facility] at this time. SHARON Pelaez
== END 2022-02-28 14:46 | disposition home health service (06) | DRG 682 ==
LOC: ED 13:20 → MS3 16:32
PROVIDERS: Physician Assistant; Emergency Provider Emergency Medicine; PCP Family Medicine; Visit Provider Internal Medicine
DX: N17.0 Acute kidney failure with tubular necrosis (principal); G93.41 Metabolic encephalopathy; E87.29 Other acidosis; I13.0 Hypertensive heart and chronic kidney disease with heart failure and stage 1 through stage 4 chronic kidney disease, or unspecified chronic kidney disease; I50.32 Chronic diastolic (congestive) heart failure; N39.0 Urinary tract infection, site not specified; E11.649 Type 2 diabetes mellitus with hypoglycemia without coma; E11.22 Type 2 diabetes mellitus with diabetic chronic kidney disease; E11.65 Type 2 diabetes mellitus with hyperglycemia; D50.9 Iron deficiency anemia, unspecified; Z79.4 Long term (current) use of insulin; N18.4 Chronic kidney disease, stage 4 (severe); E78.00 Pure hypercholesterolemia, unspecified; E87.5 Hyperkalemia; E86.0 Dehydration; K21.9 Gastro-esophageal reflux disease without esophagitis; I89.0 Lymphedema, not elsewhere classified; R09.02 Hypoxemia; G89.4 Chronic pain syndrome; Z79.82 Long term (current) use of aspirin; Z79.899 Other long term (current) drug therapy
CPT/HCPCS: 36415; 36600; 70450; 71045; 80048; 80076; 81001; 82009; 82803; 82947; 82962; 83036; 83735; 84100; 84443; 85014; 85018; 85025; 87077; 87086; 87088; 87186; 87633; 87635; 93005; 97110; 97116; 97162; 97166; 97530; 97535; 97802; 99251; 99285; J7030; P9612; G0463; J2405; J7799; U0003; U0005

== ENCOUNTER 2022-03-07 21:28 | Emergency (ER) | payer MEDICARE, MEDICAID, SELFPAY ==
[2022-03-07 21:29] VITALS: BP 180/83; PULSE 81; RESP 16; TEMP 36.6; O2SAT 98; BMI 30.7
--- NOTE | 2022-03-07 23:38 | ED.VIS.LOWEX ---
HPI History of Present Illness Chief Complaint: Edema Detail of Chief Complaint: Redness and swelling to right leg Informant: patient Narrative Narrative: Patient presents the emergency department complaint of redness and swelling to the right leg. Patient states the redness started about 24 hours ago. Patient states she had a visiting nurse that wrapped her legs today and they were concerned about cellulitis so primary care physician advised her to come in and get evaluated. She denies any fever chills or sweats. Patient states that she has a chronic wound on her left lower extremity for which she is being seen at the wound center but that seems to be doing well. Patient is a diabetic. [facility] Medical History (Updated 03/08/22 @ 01:[address] Benjamin Patricia, ) Anemia Cardiology follow-up encounter Chronic pain syndrome CKD (chronic kidney disease) stage 4, GFR 15-29 ml/min Closed intertrochanteric fracture of left hip Diabetes Diabetes mellitus with hyperglycemia Dietary restriction Essential hypertension Excessive bleeding Fall Gastric reflux High cholesterol History of echocardiogram History of edema History of orthostatic hypotension History of stress test HLD (hyperlipidemia) HTN (hypertension) Hx of orthostatic hypotension Injury of head and neck Insulin dependent diabetes mellitus Low iron Malnutrition Migraine headache Migraine without aura Non-smoker Post-concussion syndrome Symptomatic anemia Syncope Transfusion of blood during current hospitalisation Type II diabetes mellitus Vertigo Vomiting Wears glasses Home Medications diltiazem HCl 180 mg capsule,extended release 24 hr 180 mg PO DAILY blood pressure 12/17/18 [History Last Taken 02/13/21] aspirin 81 mg chewable tablet 81 mg PO QHS HEART HEALTH 12/15/19 [History Last Taken 02/12/22] atorvastatin 40 mg tablet 40 mg PO QHS CHOLESTEROL 12/15/19 [History Last Taken 02/12/22] pantoprazole 40 mg tablet,delayed release 40 mg PO DAILY GERD 12/15/19 [History Last Taken 02/13/22] clonidine HCl 0.3 mg tablet 0.3 mg PO TID BLOOD PRESSURE 01/06/22 [History Last Taken 02/13/22] insulin lispro 100 unit/mL subcutaneous pen (Humalog KwikPen (U-100) Insulin) 8 unit subcut TIDCM diabetes 01/06/22 [History Last Taken 02/13/22] sertraline 50 mg tablet 50 mg PO QHS DEPRESSION 01/06/22 [History Last Taken 02/12/22] tramadol 50 mg tablet 50 mg PO BID PRN Pain 01/06/22 [History Last Taken 02/12/22] ferrous sulfate 325 mg (65 mg iron) tablet (FeroSul) 325 mg PO QHS SUPPLEMENT 02/13/22 [History Last Taken 02/12/22] ondansetron 4 mg disintegrating tablet 4 mg PO Q8H NAUSEA 02/13/22 [History Last Taken 1 Week Ago ~02/06/22] polyethylene glycol 3350 17 gram oral powder packet 17 g PO DAILY PRN Constipation 02/13/22 [History Last Taken Unknown] pregabalin 75 mg capsule 50 mg PO BID PAIN 02/25/22 [History Last Taken Unknown] insulin glargine-yfgn 100 unit/mL (3 mL) subcutaneous pen 25 unit (0.25 mL) subcut QHS DIABETES #15 mL 02/28/22 [Rx Last Taken 02/12/22] cephalexin 500 mg capsule 500 mg PO Q6 #40 CAPSULES 03/08/22 [Rx Last Taken Unknown] sulfamethoxazole 800 mg-trimethoprim 160 mg tablet 1 tab PO BID #14 TABLETS 03/08/22 [Rx Last Taken Unknown] Allergy/AdvReac Type Severity Reaction Status Date / Time metformin AdvReac Diarrhea Verified 03/07/22 21:31 Family History Mother Hypertension Father Cancer lymphoma, leukemia Emphysema of lung Grandmother Diabetes Surgical History (Updated 02/25/22 @ 18:11 by Ce Luong) History of cholecystectomy History of cholecystectomy History of esophagogastroduodenoscopy (EGD) History of mandibular surgery Hx of colonoscopy Social History household members: significant other Smoking Status: Never smoker alcohol intake: never substance use type: does not use ROS ROS ED Review of Systems ROS Unobtainable: other Constitutional Constitutional ED: Reports lethargy; Denies chills, fever(s), sweats or weight loss Eyes Eyes: Denies blurry vision, change in vision or diplopia ENT ENT ED: Denies rhinorrhea or sore throat Cardiovascular Cardiovascular: Denies chest pain, orthopnea or racing heartbeat Respiratory/Chest Respiratory/Chest: Denies cough, dyspnea, dyspnea on exertion, orthopnea or sputum Gastrointestinal Gastrointestinal: Denies abdominal pain, diarrhea, nausea or vomiting Genitourinary Genitourinary ED: Denies dysuria, hematuria or urinary frequency Musculoskeletal Musculoskeletal: Denies arthralgias, back pain, myalgias or neck pain Integumentary Reports Abrasions, rash and other Details: Redness to right lower extremity ; Denies abscess Neurologic Neurologic: Denies headache(s) or weakness Psychiatric Psychiatric: Denies anxiety, depression or suicidal thoughts Endocrine Endocrinology: Denies polydipsia, polyphagia or polyuria Hematologic/Lymphatic Hematologic/Lymphatic: Denies easy bleeding, easy bruising or lymphadenopathy Allergic/Immunologic Allergic/Immunologic ED: Denies mouth swelling, tongue swelling or urticaria EXAM Physical Exam Const Vital Signs: 03/07/22 21:29 03/08/22 00:14 03/08/22 00:15 Temperature 97.9 F Temperature Source Temporal Pulse Rate 81 Respiratory Rate 16 Respiratory Effort Normal Respiratory Pattern Normal Blood Pressure 180/83 H Blood Pressure Mean 115 Pulse Ox 98 98 Oxygen Delivery Method Room Air Room Air Positive well nourished and well developed General Appearance ED: well developed and NAD HEENT Reports TM's clear and moist mucous membranes normocephalic and atraumatic; Negative for trauma or tenderness Tympanic Membrane ED: Yes TM's clear Eyes PERRL and EOMs intact bilaterally General Eye ED: Negative for pale conjunctiva or scleral icterus Neck no lymphadenopathy, supple and no JVD General: Negative for tenderness Chest Wall inspection of chest normal and palpation of chest normal Chest: Negative for tenderness Resp normal respiratory effort and clear to auscultation bilaterally Effort and Inspection: Negative for respiratory distress or pain with movement Auscultation: Negative for rhonchi, wheezes or diminished lung sounds Cardio regular rate, regular rhythm, S1 normal heart sound, S2 normal heart sound and no murmurs Peripheral Pulses: pulses 2+ throughout GI normal to inspection, nondistended, normoactive bowel sounds, soft to palpation, non-tender, non-distended and no masses Back/Spine no CVA tenderness and no thoracic nor lumbar tenderness Extremity normal to inspection General Extremety ED: Negative for edema General Extremity: Negative for edema Neuro oriented x3, CN's II-XII intact bilaterally, no sensory deficits noted and gait normal Sensorium / Orientation: awake, alert, oriented to person, oriented to place and oriented to time Motor Exam: strength 5/5 throughout and strength abnormal Psych mental status grossly normal Skin Skin Narrative: Right lower extremity-patient does have area of erythema just proximal to the right ankle anteriorly and wraps around posteriorly with some excoriated and weeping skin. There is concern for cellulitis. No evidence of abscess. MDM MDM MDM Narrative Medical decision making narrative: IV line established on arrival. Patient was started on Unasyn 3 g IV. Lab work-up showed a normal white count of 8.9. Chemistries unremarkable other than she did have some chronic renal insufficiency. Lactate was normal 1.7. This point area of erythema outlined with marker. I feel she can be discharged to home. She will be started on Keflex and Bactrim. Patient to follow-up with her primary care physician for wound check in 2 to 3 days. She is advised to return if fever, chills, sweats, or condition should worsen anyway. Patient advised to return if increased redness and swelling to the leg. Lab Data Attestation: I reviewed the patient's lab results. Labs: Laboratory Results - last 24 hr 03/08/22 03/08/22 03/08/22 00:01 00:01 00:01 WBC 8.9 RBC 3.33 L Hgb 9.0 L Hct 29.4 L MCV 88.3 MCH 27.0 MCHC 30.6 L RDW Std Deviation 48.7 H RDW Coeff of Chris 15.2 H Plt Count 291 MPV 9.5 Immature Gran % (Auto) 1.700 H Neut % (Auto) 76.7 H Lymph % (Auto) 13.6 L [place] % (Auto) 3.5 Eos % (Auto) 3.8 Baso % (Auto) 0.7 Absolute Neuts (auto) 6.8 Absolute Lymphs (auto) 1.21 Nucleated RBC % 0 Sodium 137 Potassium 5.0 Chloride 108 H Carbon Dioxide 24.0 Anion Gap 5 BUN 52 H Creatinine 3.58 H Estim Creat Clear Calc 15.23 Est GFR (MDRD) Af Amer 17 L Est GFR (MDRD) Non-Af 14 L BUN/Creatinine Ratio 14.5 Glucose 383 H Lactic Acid 0.7 Calcium 8.8 Discharge Plan Triage Chief Complaint: Edema ED Provider: Benjamin Patricia Dx/Rx/DC Orders Clinical Impression: Cellulitis of leg, right Instructions: ED Cellulitis Prescriptions: New sulfamethoxazole-trimethoprim [sulfamethoxazole-trimethoprim] 800-160 mg tablet 1 tab PO BID Qty: 14 0RF cephalexin [cephalexin] 500 mg capsule 500 mg PO Q6 Qty: 40 0RF No Action diltiazem HCl 180 MG capsule 180 mg PO DAILY pantoprazole 40 MG tablet 40 mg PO DAILY atorvastatin 40 MG tablet 40 mg PO QHS aspirin 81 MG tablet,chewable 81 mg PO QHS clonidine HCl 0.3 MG tablet 0.3 mg PO TID insulin lispro [Humalog KwikPen Insulin] 100 unit/mL insulin pen 8 unit subcut TIDCM tramadol 50 mg tablet 50 mg PO BID PRN (Reason: Pain) sertraline 50 mg tablet 50 mg PO QHS ondansetron 4 mg tablet,disintegrating 4 mg PO Q8H ferrous sulfate [FeroSul] 325 mg (65 mg iron) tablet 325 mg PO QHS polyethylene glycol 3350 17 gram powder in packet 17 g PO DAILY PRN (Reason: Constipation) pregabalin 75 mg capsule 50 mg PO BID insulin glargine-yfgn 100 unit/mL (3 mL) insulin pen 25 unit subcut QHS Qty: 15 0RF Primary Care Provider: Dennys Serrano Referrals: Dennys Serrano MD [Primary Care Provider] - 3-5 Days Disposition Disposition: Home, Self Care
[2022-03-08 00:14] VITALS: O2SAT 98
[2022-03-08 00:19] LABS: Absolute Lymphocyte Count 1.21 X10^3/uL (0.83-4.51); Absolute Neutrophil Count 6.8 X10^3/uL (2.0-7.7); Basophil# 0.06 X10^3/uL; Basophil% 0.7 % (0-1); Eosinophil# 0.34 X10^3/uL; Eosinophils% 3.8 % (0-5); Hematocrit 29.4 % (37-47); Lymphocyte # 1.21 X10^3/ul (0.83-4.51); Lymphocyte % 13.6 % (19-41); Mean Corp Hgb Conc 30.6 g/dL (32-36); Mean Corpuscular Volume 88.3 fL (81-99); Mean Platelet Vol. 9.5 fl (6.2-12.0); Monocyte# 0.31 X10^3/uL; Monocyte% 3.5 % (0-10); NRBC Flagged by Analyzer 0 % (0-5); Neutrophil # 6.83 X10^3/uL (2.7-7.7); Neutrophil % 76.7 % (47-70); Platelet Count 291 K/mm3 (150-450); RBC Distribution Width CV 15.2 % (11.6-14.6); RBC Distribution Width SD 48.7 fl (35.1-43.9); Red Blood Count 3.33 M/mm3 (4.2-5.4); White Blood Count 8.9 K/mm3 (4.4-11.0)
[2022-03-08 00:33] LABS: Anion Gap 5 (5-15); BUN 52 mg/dL (7-18); BUN/Creat Ratio 14.5 RATIO (10-20); Calcium,Total 8.8 mg/dL (8.5-10.1); Chloride 108 mmol/L (98-107); Creatinine, Serum 3.58 mg/dL (0.55-1.02); EST Glomerular Filtration Rate 14 mL/min (>60); Est Glom Filt Rate - Afr Amer 17 mL/min (>60); Estimated Creatinine Clearance 15.23 ml/min; Glucose 383 mg/dL (74-106); Sodium Level 137 mmol/L (136-145)
[2022-03-08 00:53] LABS: Lactic Acid 0.7 mmol/L (0.4-1.9)
[2022-03-08 01:10] VITALS: BP 132/74; PULSE 74; RESP 17; O2SAT 98
== END 2022-03-08 06:49 | disposition home or self-care (01) ==
PROVIDERS: Emergency Provider Emergency Medicine; PCP Family Medicine; Visit Provider Emergency Medicine
DX: L03.115 Cellulitis of right lower limb (principal); E11.22 Type 2 diabetes mellitus with diabetic chronic kidney disease; N18.4 Chronic kidney disease, stage 4 (severe); Z79.4 Long term (current) use of insulin; R60.9 Edema, unspecified; I12.9 Hypertensive chronic kidney disease with stage 1 through stage 4 chronic kidney disease, or unspecified chronic kidney disease; E78.5 Hyperlipidemia, unspecified
CPT/HCPCS: 80048; 83605; 85025; 87040; 90471; 96365; 99285; J0295

== ENCOUNTER 2022-03-14 11:35 | Inpatient (IN) | payer MEDICARE, MEDICAID, SELFPAY ==
[2022-03-14] VITALS (9 sets, daily range): BP systolic 133–172; BP diastolic 72–99; PULSE 99–104; RESP 16–20; TEMP 36.4–36.8; O2SAT 88–99; BMI 30.7; BMI 31.7
--- NOTE | 2022-03-14 12:36 | CT_ITS ---
STUDY: CT ABDOMEN AND PELVIS WITHOUT CONTRAST REASON FOR EXAM: Female, 61 years old. Vomiting coffee-ground material. Abdominal pain. RADIATION DOSAGE (If Supplied By Facility): CTDIvol = ( 13.05 ) mGy, DLP = ( 629.73 ) mGycm TECHNIQUE: Transaxial images were obtained from the dome of the diaphragm to the symphysis pubis without oral contrast, and without intravenous contrast. Sagittal and coronal images were reconstructed. Individualized dose optimization techniques were used for this CT. COMPARISON: Comparison is made with prior study 11/07/2019. FINDINGS: Small bilateral pleural effusions with bibasilar atelectasis and/or infiltrates. Minimal degree of pericardial thickening. Normal liver. The patient is status post cholecystectomy. Normal spleen. Normal pancreas. Normal bilateral adrenal glands. Normal right kidney. Normal left kidney. Intrarenal arterial branches calcifications. Fluid is seen within the stomach. Normal small intestine. A large amount of fecal material is seen in the colon. The appendix is visualized and appears normal. There is diffuse atherosclerotic calcification of the abdominal aorta and its major visceral branches, without a demonstrated aneurysm. Normal inferior vena cava. Normal retroperitoneum. Normal urinary bladder. Increased markings in the subcutaneous fat suggestive of subcutaneous edema and/or fluid overload. The patient is status post left intertrochanteric fracture fixation with side screw and intramedullary rick fixation device. CT/Abdomen/Pelvis without Cont IMPRESSION: Small bilateral pleural effusions with bibasilar atelectasis and/or infiltration. Diffuse atherosclerotic calcification of the aorta and major visceral branches. Large amount of fecal material is seen in the colon. Electronically Signed: Angel Manley MD at 13:28 EST ,
--- NOTE | 2022-03-14 12:37 | EDS_ITS ---
HPI HPI - GI History of Present Illness Chief Complaint: GI Bleed Narrative Narrative: 61-year-old female past medical history of diabetes states she has had nausea and vomiting since yesterday. She has vomited multiple times, a brownish substance in nature. She has epigastric to diffuse abdominal pain along with this. She denies any other bleeding diathesis, no problems with diarrhea or rectal bleeding. No fevers or chills. She states her blood sugar was elevated in the 200s today and she is still taking her insulin. She presents mainly because of the nausea and vomiting that has been ongoing since yesterday. No exacerbating or alleviating factors. [facility] Medical History Anemia Cardiology follow-up encounter Chronic pain syndrome CKD (chronic kidney disease) stage 4, GFR 15-29 ml/min Closed intertrochanteric fracture of left hip Diabetes Diabetes mellitus with hyperglycemia Dietary restriction Essential hypertension Excessive bleeding Fall Gastric reflux High cholesterol History of echocardiogram History of edema History of orthostatic hypotension History of stress test HLD (hyperlipidemia) HTN (hypertension) Hx of orthostatic hypotension Injury of head and neck Insulin dependent diabetes mellitus Low iron Malnutrition Migraine headache Migraine without aura Non-smoker Post-concussion syndrome Symptomatic anemia Syncope Transfusion of blood during current hospitalisation Type II diabetes mellitus Vertigo Vomiting Wears glasses Home Medications diltiazem HCl 180 mg capsule,extended release 24 hr 180 mg PO DAILY blood pressure 12/17/18 [History Last Taken 02/13/21] aspirin 81 mg chewable tablet 81 mg PO QHS HEART HEALTH 12/15/19 [History Last Taken 02/12/22] atorvastatin 40 mg tablet 40 mg PO QHS CHOLESTEROL 12/15/19 [History Last Taken 02/12/22] pantoprazole 40 mg tablet,delayed release 40 mg PO DAILY GERD 12/15/19 [History Last Taken 02/13/22] clonidine HCl 0.3 mg tablet 0.3 mg PO TID BLOOD PRESSURE 01/06/22 [History Last Taken 02/13/22] insulin lispro 100 unit/mL subcutaneous pen (Humalog KwikPen (U-100) Insulin) 8 unit subcut TIDCM diabetes 01/06/22 [History Last Taken 02/13/22] sertraline 50 mg tablet 50 mg PO QHS DEPRESSION 01/06/22 [History Last Taken 02/12/22] tramadol 50 mg tablet 50 mg PO BID PRN Pain 01/06/22 [History Last Taken 02/12/22] ferrous sulfate 325 mg (65 mg iron) tablet (FeroSul) 325 mg PO QHS SUPPLEMENT 02/13/22 [History Last Taken 02/12/22] ondansetron 4 mg disintegrating tablet 4 mg PO Q8H NAUSEA 02/13/22 [History Last Taken 1 Week Ago ~02/06/22] polyethylene glycol 3350 17 gram oral powder packet 17 g PO DAILY PRN Constipation 02/13/22 [History Last Taken Unknown] pregabalin 75 mg capsule 50 mg PO BID PAIN 02/25/22 [History Last Taken Unknown] insulin glargine-yfgn 100 unit/mL (3 mL) subcutaneous pen 25 unit (0.25 mL) subcut QHS DIABETES #15 mL 02/28/22 [Rx Last Taken 02/12/22] cephalexin 500 mg capsule 500 mg PO Q6 #40 CAPSULES 03/08/22 [Rx Last Taken Unknown] sulfamethoxazole 800 mg-trimethoprim 160 mg tablet 1 tab PO BID #14 TABLETS 03/08/22 [Rx Last Taken Unknown] Allergy/AdvReac Type Severity Reaction Status Date / Time metformin AdvReac Diarrhea Verified 03/14/22 11:37 Family History Mother Hypertension Father Cancer lymphoma, leukemia Emphysema of lung Grandmother Diabetes Surgical History History of cholecystectomy History of cholecystectomy History of esophagogastroduodenoscopy (EGD) History of mandibular surgery Hx of colonoscopy Social History household members: significant other Smoking Status: Never smoker alcohol intake: never substance use type: does not use ROS ROS ED ROS Narrative Constitutional: No fever, no chills. HEENT: No sore throat. No neck pain. No loss of vision. No rhinorrhea. Cardiovascular: No chest pain. No palpitations. No pedal edema. Respiratory: No cough, no shortness of breath. Abdominal: Epigastric to diffuse abdominal pain. Positive nausea. Multiple episodes of vomiting. Genitourinary: No dysuria. No hematuria. Musculoskeletal: No myalgias. No arthralgias. Neurologic: No headaches. No dizziness. No lightheadedness. Skin: No rash. No change in color. Psychiatric: No depression. No anxiety. EXAM Physical Exam Narrative Exam Narrative: Afebrile. Vital signs noted. HEENT: Normocephalic. Atraumatic. PERRL, EOMI. Neck soft and supple. No point tenderness or step off. Cardiovascular: Regular rate and rhythm. No murmurs, rubs, or gallops appreciated. Respiratory: No tachypnea. Lungs clear to auscultation bilaterally. Gastrointestinal: Abdomen soft, diffuse tenderness, with normoactive bowel sounds. No rebound or guarding. Neurological: Awake. Alert. Nonfocal, nonlateralizing. Skin: No rash. Normal color. No pallor. Musculoskeletal: No pedal edema. Full range of motion extremities. Const Vital Signs: 03/14/22 11:36 03/14/22 14:21 03/14/22 14:22 Temperature 98.3 F Temperature Source Temporal Pulse Rate 99 104 H Respiratory Rate 16 18 Blood Pressure 133/99 H 171/73 H Blood Pressure Mean 110 105 Pulse Ox 96 88 92 Oxygen Delivery Method Room Air Room Air Nasal Cannula Oxygen Flow Rate (L/min) 2 MDM MDM MDM Narrative Medical decision making narrative: Patient was bolused normal saline 1 L intravenously and administered ondansetron 4 mg intravenously. Comprehensive work-up was pursued including CBC, CMP, and lipase. CBC shows normal white count of 9.9, hemoglobin stable at 8.1, it is been as low as the sevens in the past. Platelet count normal at 293. Sodium of 135 with potassium elevated at 5.8. She does have chronic renal insufficiency, but her creatinine is 5.02 today, her baseline was around 3, but has been elevated at 4 in the past. BUN elevated 59. Glucose is elevated at 293 but she has a normal anion gap of 13. LFTs are grossly unremarkable except for low AST of 13. Lipase is normal at 93. CT of the abdomen and pelvis does not show any evidence of obstruction or acute pancreatitis. It does show bibasilar small pleural effusions with atelectasis versus pneumonia. Patient was laying flat for EKG and was hypoxic on room air in the 80s. She denies any recent fever or chills. No cough or shortness of breath. I added a BNP and will obtain a chest x-ray in 1 view (portable). Chest x-ray interpreted by myself reveals bilateral pleural effusions and fluffy infiltrates consistent with congestive heart failure. Given her hypoxia as she was 88% on room air while lying flat for the EKG, I discussed patient with Dr. Herzog for admission to the PCU. She is in stable condition. She was then given Kayexalate 15 g orally. Disposition is admit. Lab Data Attestation: I reviewed the patient's lab results. Labs: Laboratory Results - last 24 hr 03/14/22 03/14/22 12:25 12:25 WBC 9.9 RBC 2.91 L Hgb 8.1 L Hct 25.3 L MCV 86.9 MCH 27.8 MCHC 32.0 RDW Std Deviation 50.4 H RDW Coeff of Chris 15.9 H Plt Count 293 MPV 10.6 Immature Gran % (Auto) 0.300 Neut % (Auto) 89.8 H Lymph % (Auto) 7.0 L [place] % (Auto) 2.2 Eos % (Auto) 0.1 Baso % (Auto) 0.6 Absolute Neuts (auto) 8.9 H Absolute Lymphs (auto) 0.69 L Nucleated RBC % 0 Sodium 135 L Potassium 5.8 H Chloride 103 Carbon Dioxide 19.0 L Anion Gap 13 BUN 59 H Creatinine 5.02 H Estim Creat Clear Calc 10.86 Est GFR (MDRD) Af Amer 11 L Est GFR (MDRD) Non-Af 9 L BUN/Creatinine Ratio 11.8 Glucose 293 H Calcium 8.7 Total Bilirubin 0.40 AST 13 L ALT 14 Alkaline Phosphatase 152 H Total Protein 7.1 Albumin 3.0 L Globulin 4.1 Albumin/Globulin Ratio 0.7 L Lipase 93 Radiography Diagnostic Testing: Clinical Impression(s) from Imaging Studies Abdomen/Pelvis CT 03/14/22 12:36 IMPRESSION: Small bilateral pleural effusions with bibasilar atelectasis and/or infiltration. Diffuse atherosclerotic calcification of the aorta and major visceral branches. Large amount of fecal material is seen in the colon. Electronically Signed: Angel Manley MD at 13:28 EST , Discharge Plan Dx/Rx/DC Orders Clinical Impression: Nausea & vomiting, Hyperkalemia, Acute kidney injury superimposed on chronic kidney disease, Hypoxia, Bilateral pleural effusion Disposition Disposition: Acute Care Hospital [facility]
[2022-03-14] MEDS: Ondansetron 4 MG/2 ML Vial IV ×2 (12:51→20:42)
[2022-03-14] MEDS: 0.9% Normal Saline 1,000 ML 1000 ML IV (12:51)
[2022-03-14 13:03] LABS: Absolute Lymphocyte Count 0.69 X10^3/uL (0.83-4.51); Absolute Neutrophil Count 8.9 X10^3/uL (2.0-7.7); Basophil# 0.06 X10^3/uL; Basophil% 0.6 % (0-1); Eosinophil# 0.01 X10^3/uL; Eosinophils% 0.1 % (0-5); Hematocrit 25.3 % (37-47); Hemoglobin 8.1 g/dL (12.0-15.0); Lymphocyte # 0.69 X10^3/ul (0.83-4.51); Mean Corpuscular Hgb 27.8 pg (27.0-32.0); Mean Corpuscular Volume 86.9 fL (81-99); Mean Platelet Vol. 10.6 fl (6.2-12.0); Monocyte# 0.22 X10^3/uL; Monocyte% 2.2 % (0-10); NRBC Flagged by Analyzer 0 % (0-5); Neutrophil # 8.88 X10^3/uL (2.7-7.7); Neutrophil % 89.8 % (47-70); Platelet Count 293 K/mm3 (150-450); RBC Distribution Width CV 15.9 % (11.6-14.6); RBC Distribution Width SD 50.4 fl (35.1-43.9); Red Blood Count 2.91 M/mm3 (4.2-5.4); White Blood Count 9.9 K/mm3 (4.4-11.0)
[2022-03-14 13:21] LABS: ALB/GLOB Ratio 0.7 RATIO (0.9-2.4); AST(SGOT) 13 U/L (15-37); Alanine Aminotransfer ALT/SGPT 14 U/L (13-56); Alkaline Phosphatase 152 U/L (45-117); Anion Gap 13 (5-15); BUN 59 mg/dL (7-18); BUN/Creat Ratio 11.8 RATIO (10-20); Calcium,Total 8.7 mg/dL (8.5-10.1); Chloride 103 mmol/L (98-107); Creatinine, Serum 5.02 mg/dL (0.55-1.02); EST Glomerular Filtration Rate 9 mL/min (>60); Est Glom Filt Rate - Afr Amer 11 mL/min (>60); Estimated Creatinine Clearance 10.86 ml/min; Globulin 4.1 g/dL (2.2-4.2); Glucose 293 mg/dL (74-106); Lipase 93 U/L (73-393); Potassium 5.8 mmol/L (3.5-5.1); Protein, Total 7.1 g/dL (6.4-8.2); Sodium Level 135 mmol/L (136-145)
--- NOTE | 2022-03-14 14:01 | EKG12_ITS ---
Test Reason : GI BLEED Blood Pressure : / mmHG Vent. Rate : 105 BPM Atrial Rate : 105 BPM P-R Int : 140 ms QRS Dur : 086 ms QT Int : 356 ms P-R-T Axes : 062 063 068 degrees QTc Int : 470 ms Sinus tachycardia Otherwise normal ECG Confirmed by DAVID AMEZCUA, TED ([id number]), editor book RAFI DOMINGO ([id number]) on 03/16/2022 10:43:14 AM Referred By: Confirmed By:JUSTUS HERNANDEZ MD
--- NOTE | 2022-03-14 14:13 | RAD_ITS ---
STUDY: X-RAY CHEST REASON FOR EXAM: Female, 61 years old. Shortness of breath TECHNIQUE: Single AP portable view of the chest. COMPARISON: Comparison is made with prior study dated 02/25/2022. FINDINGS: EKG electrodes are seen. Gastric congestion and CHF with bibasilar atelectasis and/or infiltrates worse on the left side. Blunting of both costophrenic angles. Normal size heart. Normal mediastinum and emily. Normal visualized pulmonary arteries. There is atherosclerotic calcification of the aortic arch with tortuosity. Normal visualized thoracic spine. Normal visualized ribs, clavicles, and shoulders. There is no demonstrated abnormality of the visualized soft tissue structures of the upper abdomen. RAD/Chest 1 View (Portable) IMPRESSION: Findings suggestive of mild degree of CHF with superimposed atelectasis and/or infiltrates at the lung bases with blunting of both costophrenic angles. Electronically Signed: Angel Manley MD at 15:11 EST ,
[2022-03-14] MEDS: Calcium Gluconate IV 3 GM in Syringe 1 EACH IV (14:51)
[2022-03-14] MEDS: Dextrose 50%-Water 25 GM/50 ML DISP.SYRIN IV (14:52)
[2022-03-14] MEDS: Insulin Lispro 10 UNIT in Syringe 0 ML 6 UNIT IV (14:52)
--- NOTE | 2022-03-14 15:22 | HP.PCM.HOS_ITS ---
HPI - General General Date of Admission: 03/14/22 Date of Service: 03/14/22 Chief Complaint: Coffee-ground emesis HPI Narrative LAYNE VINCENT, is a 61 F with multiple comorbidities including diabetes mellitus type 2, with recent hospitalization for acute kidney injury superimposed on chronic kidney disease, acute cystitis discharged to detention facility was brought back to the emergency department with coffee-ground emesis. Per pat ient symptoms started 2 days prior to her admission. In addition to the coffee- ground emesis patient did complain of abdominal discomfort. Was seen in the emergency department CT of the abdomen obtained did show small bilateral pleural effusions with bibasilar atelectasis and/or infiltration. Diffuse atherosclerotic calcification of the aorta and major visceral branches. Large amount of fecal material is seen in the colon. Patient was also found to have further worsening of her kidney function as well as hyperkalemia treatment of which was initiated in the ED subsequently admitted to a monitored bed for further management COUNT INCLUDES THE [facility] Medical History Anemia Cardiology follow-up encounter Chronic pain syndrome CKD (chronic kidney disease) stage 4, GFR 15-29 ml/min Closed intertrochanteric fracture of left hip Diabetes Diabetes mellitus with hyperglycemia Dietary restriction Essential hypertension Excessive bleeding Fall Gastric reflux High cholesterol History of echocardiogram History of edema History of orthostatic hypotension History of stress test HLD (hyperlipidemia) HTN (hypertension) Hx of orthostatic hypotension Injury of head and neck Insulin dependent diabetes mellitus Low iron Malnutrition Migraine headache Migraine without aura Non-smoker Post-concussion syndrome Symptomatic anemia Syncope Transfusion of blood during current hospitalisation Type II diabetes mellitus Vertigo Vomiting Wears glasses Home Medications diltiazem HCl 180 mg capsule,extended release 24 hr 180 mg PO DAILY blood pressure 12/17/18 [History Last Taken 02/13/21] aspirin 81 mg chewable tablet 81 mg PO QHS HEART HEALTH 12/15/19 [History Last Taken 02/12/22] atorvastatin 40 mg tablet 40 mg PO QHS CHOLESTEROL 12/15/19 [History Last Taken 02/12/22] pantoprazole 40 mg tablet,delayed release 40 mg PO DAILY GERD 12/15/19 [History Last Taken 02/13/22] clonidine HCl 0.3 mg tablet 0.3 mg PO TID BLOOD PRESSURE 01/06/22 [History Last Taken 02/13/22] insulin lispro 100 unit/mL subcutaneous pen (Humalog KwikPen (U-100) Insulin) 8 unit subcut TIDCM diabetes 01/06/22 [History Last Taken 02/13/22] sertraline 50 mg tablet 50 mg PO QHS DEPRESSION 01/06/22 [History Last Taken 02/12/22] tramadol 50 mg tablet 50 mg PO BID PRN Pain 01/06/22 [History Last Taken 02/12/22] ferrous sulfate 325 mg (65 mg iron) tablet (FeroSul) 325 mg PO QHS SUPPLEMENT 1 04/15/21 [History Last Taken 02/12/22] ondansetron 4 mg disintegrating tablet 4 mg PO Q8H NAUSEA 02/13/22 [History Last Taken 1 Week Ago ~02/06/22] polyethylene glycol 3350 17 gram oral powder packet 17 g PO DAILY PRN Constipation 02/13/22 [History Last Taken Unknown] pregabalin 75 mg capsule 50 mg PO BID PAIN 02/25/22 [History Last Taken Unknown] insulin glargine-yfgn 100 unit/mL (3 mL) subcutaneous pen 25 unit (0.25 mL) subcut QHS DIABETES #15 mL 02/28/22 [Rx Last Taken 02/12/22] cephalexin 500 mg capsule 500 mg PO Q6 #40 CAPSULES 03/08/22 [Rx Last Taken Unknown] sulfamethoxazole 800 mg-trimethoprim 160 mg tablet 1 tab PO BID #14 TABLETS 03/08/22 [Rx Last Taken Unknown] Allergy/AdvReac Type Severity Reaction Status Date / Time metformin AdvReac Diarrhea Verified 03/14/22 11:37 Family History Mother Hypertension Father Cancer lymphoma, leukemia Emphysema of lung Grandmother Diabetes Surgical History History of cholecystectomy History of cholecystectomy History of esophagogastroduodenoscopy (EGD) History of mandibular surgery Hx of colonoscopy Social History household members: significant other Smoking Status: Never smoker alcohol intake: never substance use type: does not use ROS ROS Narrative GENERAL: denies fever, chills, night sweats, weight loss, anorexia HEENT: denies headache, sinus congestion, or drainage, dysphagia RESPIRATORY: denies cough, sputum production, shortness of breath, dyspnea on exertion CARDIAC: denies chest pain, palpitations, orthopnea, PND GASTROINTESTINAL: Abdominal pain, coffee-ground emesis GENITOURINARY: denies dysuria, urgency, frequency, heamaturia EXTREMITY: denies swelling MUSCULOSKELETAL: denies current joint pain or tenderness NEUROLOGIC: denies focal numbness, weakness, tingling HEMATOLOGIC: denies easy bruising and/or hemorrhage INTEGUMENT: denies rashes PSYCHIATRIC: denies suicidal or homicidal ideation Vital Signs Vital Signs Vital Signs: 03/14/22 11:36 03/14/22 14:21 03/14/22 14:22 Temperature 98.3 F Temperature Source Temporal Pulse Rate 99 104 H Respiratory Rate 16 18 Blood Pressure 133/99 H 171/73 H Blood Pressure Mean 110 105 Pulse Ox 96 88 92 Oxygen Delivery Method Room Air Room Air Nasal Cannula Oxygen Flow Rate (L/min) 2 03/14/22 15:20 Temperature 98.2 F Temperature Source Temporal Pulse Rate 101 H Respiratory Rate 17 Blood Pressure 172/72 H Blood Pressure Mean 105 Pulse Ox Oxygen Delivery Method Oxygen Flow Rate (L/min) Weight Weight: 83.915 kg Body Mass Index (BMI) 30.7 Results Lab / Micro Data Result Diagrams: 03/14/22 12:25 03/14/22 12:25 Labs: Laboratory Results - last 24 hr 03/14/22 12:25: WBC 9.9, RBC 2.91 L, Hgb 8.1 L, Hct 25.3 L, MCV 86.9, MCH 27.8, MCHC 32.0, RDW Std Deviation 50.4 H, RDW Coeff of Chris 15.9 H, Plt Count 293, MPV 10.6, Immature Gran % (Auto) 0.300, Neut % (Auto) 89.8 H, Lymph % (Auto) 7.0 L, Cassia % (Auto) 2.2, Eos % (Auto) 0.1, Baso % (Auto) 0.6, Absolute Neuts (auto) 8.9 H, Absolute Lymphs (auto) 0.69 L, Nucleated RBC % 0 03/14/22 12:25: Sodium 135 L, Potassium 5.8 H, Chloride 103, Carbon Dioxide 19.0 L, Anion Gap 13, BUN 59 H, Creatinine 5.02 H, Estim Creat Clear Calc 10.86, Est GFR (MDRD) Af Amer 11 L, Est GFR (MDRD) Non-Af 9 L, BUN/Creatinine Ratio 11.8, Glucose 293 H, Calcium 8.7, Total Bilirubin 0.40, AST 13 L, ALT 14, Alkaline Phosphatase 152 H, Total Protein 7.1, Albumin 3.0 L, Globulin 4.1, Albumin/Globulin Ratio 0.7 L, Lipase 93 03/14/22 12:25: B-Natriuretic Peptide 1801.0 H Radiology Impression Abdomen/Pelvis CT 03/14/22 12:36 IMPRESSION: Small bilateral pleural effusions with bibasilar atelectasis and/or infiltration. Diffuse atherosclerotic calcification of the aorta and major visceral branches. Large amount of fecal material is seen in the colon. Electronically Signed: Angel Manley MD at 13:28 EST , Chest X-Ray 03/14/22 14:13 IMPRESSION: Findings suggestive of mild degree of CHF with superimposed atelectasis and/or infiltrates at the lung bases with blunting of both costophrenic angles. Electronically Signed: Angel Manley MD at 15:11 EST , Assessment & Plan Assessment/Plan (1) Hyperkalemia: (2) Acute kidney injury superimposed on chronic kidney disease: PLAN: Plan Patient is a 61-year-old lady presented with coffee-ground emesis, abdominal pain, found to have acute kidney injury superimposed on chronic kidney disease as well as hyperkalemia 1. Coffee-ground emesis ? Spectated secondary to gastritis. Patient started on Protonix drip admitted to monitored bed, patient being monitored with every 6 H&H, consult was placed to GI 2. Anemia ? Secondary to acute blood loss anemia monitoring H&H with plans to transfuse if hemoglobin falls below 7 3. Acute kidney injury ? Superimposed on chronic kidney disease stage V. Discharge creatinine was 3.67 had worsened to 5.02 patient started on IV fluids consult placed to nephrology 4. Hyperkalemia Secondary to above treatment initiated in the ED. Response to therapy being monitored with repeat BMP 5. Diabetes mellitus type 2 ? Patient presented with hyperglycemia her oral hypoglycemic agent held please on Accu-Cheks before meals and at bedtime with sliding scale coverage 6. Essential hypertension ? Patient blood pressure control not optimal did continue with home meds also added hydralazine as needed to keep systolic blood pressure less than 140 7. Diabetic polyneuropathy ? Patient is on Lyrica continue 8. Dyslipidemia -Patient is on statin therapy, continued at home dose 9. DVT prophylaxis Avoided chemoprophylaxis in view of patient's presentation. Did initiate SCDs 10. Obstipation -plan is to treat symptomatically Advance planning; did discuss with the patient and family regarding advanced directives as well as CODE STATUS. Did explain the various scenarios involved ( FULL CODE, DNR CCA, DNR CCA with no intubation, and DNR CC and what each meant) patient elected to full code with CPR and intubation if needed. Order was placed. Time spent on discussion 18 minutes. Charges/Coding Visit Charges Inpatient E&M: 02302 Init Hosp L3 Procedures Hospitalists Procedures: 06564 Advncd Care Plan 30 Min
[2022-03-14] MEDS: Sodium Polystyrene Sulfonate 15 GM/60 ML UDC PO (16:40)
--- NOTE | 2022-03-14 17:21 | ED.RN ---
PT STATES SHE IS UNABLE TO URINATE, DECLINES CATH
[2022-03-14] MEDS: 0.9% Normal Saline 1,000 ML 75 ML IV (18:08)
[2022-03-14] MEDS: Ondansetron ODT 4 MG Tablet PO (18:17)
[2022-03-14] MEDS: Sodium Polystyrene Sulfonate 15 GM/60 ML UDC 30 GM PO (18:18)
[2022-03-14 20:01] LABS: Anion Gap 9 (5-15); BUN 58 mg/dL (7-18); BUN/Creat Ratio 11.9 RATIO (10-20); Calcium,Total 8.9 mg/dL (8.5-10.1); Chloride 106 mmol/L (98-107); Creatinine, Serum 4.87 mg/dL (0.55-1.02); EST Glomerular Filtration Rate 10 mL/min (>60); Est Glom Filt Rate - Afr Amer 12 mL/min (>60); Estimated Creatinine Clearance 11.19 ml/min; Glucose 245 mg/dL (74-106); Potassium 5.5 mmol/L (3.5-5.1); Sodium Level 137 mmol/L (136-145)
[2022-03-14] MEDS: Insulin Glargine-YFGN 100 UNIT/ML Pen 25 UNIT SC (21:49)
[2022-03-14] MEDS: Insulin Lispro 100 UNIT/ML INSULN.PEN SC (22:02)
[2022-03-14 23:43] LABS: Absolute Lymphocyte Count 1.12 X10^3/uL (0.83-4.51); Absolute Neutrophil Count 8.1 X10^3/uL (2.0-7.7); Basophil# 0.04 X10^3/uL; Basophil% 0.4 % (0-1); Eosinophil# 0.03 X10^3/uL; Eosinophils% 0.3 % (0-5); Hematocrit 21.5 % (37-47); Hemoglobin 6.9 g/dL (12.0-15.0); Lymphocyte # 1.12 X10^3/ul (0.83-4.51); Lymphocyte % 11.5 % (19-41); Mean Corp Hgb Conc 32.1 g/dL (32-36); Mean Corpuscular Hgb 27.3 pg (27.0-32.0); Mean Platelet Vol. 10.5 fl (6.2-12.0); Monocyte# 0.43 X10^3/uL; Monocyte% 4.4 % (0-10); NRBC Flagged by Analyzer 0 % (0-5); Neutrophil # 8.08 X10^3/uL (2.7-7.7); Neutrophil % 83.1 % (47-70); Platelet Count 284 K/mm3 (150-450); RBC Distribution Width CV 15.8 % (11.6-14.6); RBC Distribution Width SD 48.6 fl (35.1-43.9); Red Blood Count 2.53 M/mm3 (4.2-5.4); White Blood Count 9.7 K/mm3 (4.4-11.0)
[2022-03-14 23:52] LABS: BNP,B-Type NATRIURETIC PEPTIDE 2059.4 pg/mL (0-100)
[2022-03-14 23:53] LABS: ALB/GLOB Ratio 0.7 RATIO (0.9-2.4); AST(SGOT) 8 U/L (15-37); Alanine Aminotransfer ALT/SGPT 13 U/L (13-56); Albumin, Serum 2.8 g/dL (3.2-5.0); Alkaline Phosphatase 132 U/L (45-117); Anion Gap 7 (5-15); BUN 58 mg/dL (7-18); BUN/Creat Ratio 11.4 RATIO (10-20); Bilirubin, Direct 0.08 mg/dL (0.00-0.30); Calcium,Total 8.5 mg/dL (8.5-10.1); Chloride 107 mmol/L (98-107); Creatinine, Serum 5.08 mg/dL (0.55-1.02); EST Glomerular Filtration Rate 9 mL/min (>60); Est Glom Filt Rate - Afr Amer 11 mL/min (>60); Estimated Creatinine Clearance 10.73 ml/min; Globulin 3.9 g/dL (2.2-4.2); Glucose 215 mg/dL (74-106); Lipase 59 U/L (73-393); Potassium 5.2 mmol/L (3.5-5.1); Protein, Total 6.7 g/dL (6.4-8.2); Sodium Level 137 mmol/L (136-145)
[2022-03-14 23:57] LABS: Lactic Acid 1.1 mmol/L (0.4-1.9)
[2022-03-15] VITALS (14 sets, daily range): BP systolic 146–178; BP diastolic 68–97; PULSE 63–96; RESP 16–18; TEMP 36.2–37.2; O2SAT 93–99
[2022-03-15 00:06] LABS: Blood Gas Specimen Type VEN; VBG BASE EXCESS -6 mmol/L (-1.0-3.5); VBG Bicarbonate 20 mmol/L (22-26); VBG PO2 82 mmHg (25-40); VBG SO2 95 % (50-70); VBG TCO2 22 mmol/L (23-33); VBG pCO2 40.5 mmHg (41-51); VBG pH 7.31 (7.32-7.42)
--- NOTE | 2022-03-15 01:20 | PCM.HOSP.N ---
Hospitalist Note Called regarding nausea. Zofran minimally helpful. Went to evaluate given continued nausea and pt reports it has been present for the past couple days, also reports minimal PO intake over the past couple days and just generally feeling unwell. She denies any abdominal pain and reports she had a BM today without difficulty. Gave [address] from earlier in the day showed large amount of fecal material in the colon. Obtained labs, LA wnl, hgb 6.9 but has been receiving fluids though with complaint of coffee ground emesis will watch very closely and transfuse 1 unit. Pt w/ no further coffee ground emesis or blood per rectum. Vitally stable at this time. Pt to have GI consult as well.
[2022-03-15 01:25] LABS: Bedside Glucose 226 mg/dL (74-106)
[2022-03-15] MEDS: 0.9% Saline Lock 10 ML Syringe IV (06:31)
[2022-03-15] MEDS: proCHLORPERazine 10 MG/2 ML Vial 5 MG IV ×2 (06:37)
[2022-03-15 07:05] LABS: Bedside Glucose 81 mg/dL (74-106)
[2022-03-15 08:06] LABS: Absolute Lymphocyte Count 1.15 X10^3/uL (0.83-4.51); Basophil# 0.03 X10^3/uL; Basophil% 0.3 % (0-1); Eosinophils% 1.1 % (0-5); Hematocrit 25.5 % (37-47); Hemoglobin 7.8 g/dL (12.0-15.0); Lymphocyte # 1.15 X10^3/ul (0.83-4.51); Lymphocyte % 13.2 % (19-41); Mean Corp Hgb Conc 30.6 g/dL (32-36); Mean Corpuscular Hgb 26.3 pg (27.0-32.0); Mean Corpuscular Volume 85.9 fL (81-99); Mean Platelet Vol. 10.3 fl (6.2-12.0); Monocyte# 0.44 X10^3/uL; NRBC Flagged by Analyzer 0 % (0-5); Neutrophil # 6.98 X10^3/uL (2.7-7.7); Neutrophil % 79.9 % (47-70); Platelet Count 235 K/mm3 (150-450); RBC Distribution Width CV 15.9 % (11.6-14.6); Red Blood Count 2.97 M/mm3 (4.2-5.4); White Blood Count 8.7 K/mm3 (4.4-11.0)
[2022-03-15 08:26] LABS: Anion Gap 7 (5-15); BUN 54 mg/dL (7-18); BUN/Creat Ratio 10.9 RATIO (10-20); Calcium,Total 8.4 mg/dL (8.5-10.1); Chloride 110 mmol/L (98-107); Creatinine, Serum 4.94 mg/dL (0.55-1.02); EST Glomerular Filtration Rate 10 mL/min (>60); Est Glom Filt Rate - Afr Amer 12 mL/min (>60); Estimated Creatinine Clearance 11.03 ml/min; Glucose 82 mg/dL (74-106); Magnesium 2.2 mg/dL (1.6-2.6); Phosphorus 5.1 mg/dL (2.5-4.9); Potassium 4.9 mmol/L (3.5-5.1); Sodium Level 139 mmol/L (136-145)
[2022-03-15] MEDS: cloNIDine HCl 0.1 MG Tablet 0.3 MG PO ×3 (09:47→17:12)
[2022-03-15] MEDS: dilTIAZem CD 180 MG Capsule PO (09:47)
[2022-03-15] MEDS: Pregabalin 50 MG Capsule PO ×2 (09:48→22:09)
[2022-03-15] MEDS: Ondansetron ODT 4 MG Tablet PO (09:48)
--- NOTE | 2022-03-15 10:06 | PCM.PN.HOSP ---
Subjective Subjective Patient seen, hemoglobin down to 7.8 still has nausea this a.m. Consult placed to both gastroenterology as well as nephrology Objective Data Objective Data Vital Signs: Vital Signs Temp Pulse Resp BP Pulse Ox O2 Del Method O2 Flow Rate 98 F 93 16 178/83 H 98 Nasal Cannula 2 03/15/22 09:37 03/15/22 09:37 03/15/22 09:37 03/15/22 09:37 03/15/22 09:37 03/15/22 09:37 03/15/22 09:37 Oxygen Flow Rate (L/min) 2 Oxygen Delivery Method Nasal Cannula Weight: 84 kg Body Mass Index (BMI) 31.7 Intake & Output: Intake and Output for Last 24 Hours 03/13/22 03/14/22 03/15/22 23:59 23:59 23:59 Intake Total 1498.75 / 1498.75 500 / 500 Balance 1498.75 / 1498.75 500 / 500 Lab / Micro Data Result Diagrams: 03/15/22 07:52 03/15/22 07:52 Labs: Laboratory Results - last 24 hr 03/14/22 12:25: WBC 9.9, RBC 2.91 L, Hgb 8.1 L, Hct 25.3 L, MCV 86.9, MCH 27.8, MCHC 32.0, RDW Std Deviation 50.4 H, RDW Coeff of Chris 15.9 H, Plt Count 293, MPV 10.6, Immature Gran % (Auto) 0.300, Neut % (Auto) 89.8 H, Lymph % (Auto) 7.0 L, Mccracken % (Auto) 2.2, Eos % (Auto) 0.1, Baso % (Auto) 0.6, Absolute Neuts (auto) 8.9 H, Absolute Lymphs (auto) 0.69 L, Nucleated RBC % 0 03/14/22 12:25: Sodium 135 L, Potassium 5.8 H, Chloride 103, Carbon Dioxide 19.0 L, Anion Gap 13, BUN 59 H, Creatinine 5.02 H, Estim Creat Clear Calc 10.86, Est GFR (MDRD) Af Amer 11 L, Est GFR (MDRD) Non-Af 9 L, BUN/Creatinine Ratio 11.8, Glucose 293 H, Calcium 8.7, Total Bilirubin 0.40, AST 13 L, ALT 14, Alkaline Phosphatase 152 H, Total Protein 7.1, Albumin 3.0 L, Globulin 4.1, Albumin/Globulin Ratio 0.7 L, Lipase 93 03/14/22 12:25: B-Natriuretic Peptide 1801.0 H 03/14/22 19:24: Sodium 137, Potassium 5.5 H, Chloride 106, Carbon Dioxide 22.0, Anion Gap 9, BUN 58 H, Creatinine 4.87 H, Estim Creat Clear Calc 11.19, Est GFR (MDRD) Af Amer 12 L, Est GFR (MDRD) Non-Af 10 L, BUN/Creatinine Ratio 11.9, Glucose 245 H, Calcium 8.9 03/14/22 21:47: POC Glucose 226 H 03/14/22 23:15: WBC 9.7, RBC 2.53 L, Hgb 6.9 L, Hct 21.5 L, MCV 85.0, MCH 27.3, MCHC 32.1, RDW Std Deviation 48.6 H, RDW Coeff of Chris 15.8 H, Plt Count 284, MPV 10.5, Immature Gran % (Auto) 0.300, Neut % (Auto) 83.1 H, Lymph % (Auto) 11.5 L, Mccracken % (Auto) 4.4, Eos % (Auto) 0.3, Baso % (Auto) 0.4, Absolute Neuts (auto) 8.1 H, Absolute Lymphs (auto) 1.12, Nucleated RBC % 0 03/14/22 23:15: Sodium 137, Potassium 5.2 H, Chloride 107, Carbon Dioxide 23.0, Anion Gap 7, BUN 58 H, Creatinine 5.08 H, Estim Creat Clear Calc 10.73, Est GFR (MDRD) Af Amer 11 L, Est GFR (MDRD) Non-Af 9 L, BUN/Creatinine Ratio 11.4, Glucose 215 H, Calcium 8.5, Total Bilirubin 0.30, Direct Bilirubin 0.08, AST 8 L, ALT 13, Alkaline Phosphatase 132 H, Total Protein 6.7, Albumin 2.8 L, Globulin 3.9, Albumin/Globulin Ratio 0.7 L, Lipase 59 L 03/14/22 23:15: B-Natriuretic Peptide 2059.4 H 03/14/22 23:15: Lactic Acid 1.1 03/15/22 01:20: Blood Type A POSITIVE, Antibody Screen NEGATIVE, Crossmatch See Detail 03/15/22 06:22: POC Glucose 81 03/15/22 07:52: WBC 8.7, RBC 2.97 L, Hgb 7.8 L, Hct 25.5 L, MCV 85.9, MCH 26.3 L, MCHC 30.6 L, RDW Std Deviation 50.0 H, RDW Coeff of Chris 15.9 H, Plt Count 235, MPV 10.3, Immature Gran % (Auto) 0.500, Neut % (Auto) 79.9 H, Lymph % (Auto) 13.2 L, Mccracken % (Auto) 5.0, Eos % (Auto) 1.1, Baso % (Auto) 0.3, Absolute Neuts (auto) 7.0, Absolute Lymphs (auto) 1.15, Nucleated RBC % 0 03/15/22 07:52: Sodium 139, Potassium 4.9, Chloride 110 H, Carbon Dioxide 22.0, Anion Gap 7, BUN 54 H, Creatinine 4.94 H, Estim Creat Clear Calc 11.03, Est GFR (MDRD) Af Amer 12 L, Est GFR (MDRD) Non-Af 10 L, BUN/Creatinine Ratio 10.9, Glucose 82, Calcium 8.4 L, Phosphorus 5.1 H, Magnesium 2.2 03/15/22 07:52: Ammonia 25.0 ABG Data ABG results: ABG 03/14/22 23:58 Specimen Type ERVIN VBG pH 7.31 L VBG pO2 82 H VBG HCO3 20 L VBG Total CO2 22 L VBG O2 Sat (Calc) 95 H VBG Base Excess -6 L POC Mix VBG pCO2 Pt Tmp 40.5 L Radiography Diagnostic Testing: Radiology Impression Abdomen/Pelvis CT 03/14/22 12:36 IMPRESSION: Small bilateral pleural effusions with bibasilar atelectasis and/or infiltration. Diffuse atherosclerotic calcification of the aorta and major visceral branches. Large amount of fecal material is seen in the colon. Electronically Signed: Angel Manley MD at 13:28 EST , Chest X-Ray 03/14/22 14:13 IMPRESSION: Findings suggestive of mild degree of CHF with superimposed atelectasis and/or infiltrates at the lung bases with blunting of both costophrenic angles. Electronically Signed: Angel Manley MD at 15:11 EST , Physical Exam Narrative GENERAL: Patient appears ill looking HEENT: Atraumatic; normocephalic EYES; Anicteric, Normal Conjunctiva NECK; supple, normal thyroid, RESPIRATORY: Diminished to auscultation CARDIOVASCULAR: Regular S1 S2, GI: soft, normoactive bowel sounds, : No Renal angle tenderness; EXTREMITIES: No edema, no clubbing, MUSCULOSKELETAL: no muscle wasting NEURO: Awake; no lateralizing signs. SKIN: No Rash PSYCH; Flat affect Assessment & Plan Assessment/Plan (1) Hyperkalemia: (2) Acute kidney injury superimposed on chronic kidney disease: PLAN: Plan Patient is a 61-year-old lady presented with coffee-ground emesis, abdominal pain, found to have acute kidney injury superimposed on chronic kidney disease as well as hyperkalemia 1. Coffee-ground emesis ? Spectated secondary to gastritis. Patient started on Protonix drip admitted to monitored bed, patient being monitored with every 6 H&H, consult was placed to GI ? 03/15/2022; patient has drop in her hemoglobin level. Did continue with treatment as described above with consultation placed to GI 2. Anemia ? Secondary to acute blood loss anemia monitoring H&H with plans to transfuse if hemoglobin falls below 7 3. Acute kidney injury ? Superimposed on chronic kidney disease stage V. Discharge creatinine was 3.67 had worsened to 5.02 patient started on IV fluids consult placed to nephrology 4. Hyperkalemia Secondary to above treatment initiated in the ED. Response to therapy being monitored with repeat BMP 5. Diabetes mellitus type 2 ? Patient presented with hyperglycemia her oral hypoglycemic agent held please on Accu-Cheks before meals and at bedtime with sliding scale coverage 6. Essential hypertension ? Patient blood pressure control not optimal did continue with home meds also added hydralazine as needed to keep systolic blood pressure less than 140 7. Diabetic polyneuropathy ? Patient is on Lyrica continue 8. Dyslipidemia -Patient is on statin therapy, continued at home dose 9. DVT prophylaxis Avoided chemoprophylaxis in view of patient's presentation. Did initiate SCDs 10. Obstipation -plan is to treat symptomatically enarios involved ( FULL CODE, DNR CCA, DNR CCA with no intubation, and DNR CC and what each meant) patient elected to full code with CPR and intubation if needed. Order was placed. Time spent on discussion 18 minutes. Charges/Coding Visit Charges Inpatient E&M: 43544 Subs Hosp L2
--- NOTE | 2022-03-15 13:02 | PCM.CONS.R ---
Documented by User: JUAN MANUEL Rivsa 03/15/22 13:30 Assessment & Plan Assessment/Plan (1) Acute kidney injury superimposed on chronic kidney disease: (2) Hyperkalemia: (3) Nausea & vomiting: (4) Chronic kidney disease (CKD) stage G4/A2, severely decreased glomerular filtration rate (GFR) between 15-29 mL/min/1.73 square meter and albuminuria creatinine ratio between 30-299 mg/g: (5) Coffee ground emesis: PLAN: Plan -ALMA on CKD, ALMA likely secondary to significant volume depletion with coffee-ground emesis. With IV fluids/volume expansion renal function has improved. Patient has had multiple recurrent ALMA over the past 6 months. Patient states she is urinating, no output documented. Recommend strict I&O. Patient may need Howard. Potassium was elevated in the emergency room at 5.8, likely from ALMA and Bactrim, she received Kayexalate, hyperkalemia resolved today. Bactrim is on hold. At this time there is no acute indication for MEDICAL DIAGNOSTIC RADIOGRAPHER. Labs ordered for the morning. 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 Hemoglobin A1c 13.9% on 01/08/2022. Baseline creatinine was around 2.7 mg/dL as of mid-January 2022. Her creatinine went as high as 4.30 mg/dL on February 25 and on 03/08/2022 creatinine 3.58 mg/dL. Patient has had recurrent ALMA episode and serum creatinine has not leveled off back to baseline yet. She may have had some progression of CKD, still we will need to follow her renal function closely. We will follow serum creatinine trajectory. - UA negative for RBC, positive for occult blood, positive leukocyte esterase. Will send urine culture. -GI consulted for coffee-ground emesis. Patient is on PPI drip as well as IV fluids. Hemoglobin was 8.1 on admission and is currently 7.8. Patient does have a history of iron deficiency anemia. HPI Consult Data Date of Consult: 03/15/22 HPI Narrative HPI Narrative: LAYNE VINCENT, is a 61 F with past medical history significant for hypertension, diabetes mellitus type 2, chronic heart failure with preserved E (EF 45%), hyperlipidemia, chronic kidney disease who is well-known to us from recent multiple hospitalizations, found to have ALMA and seen in consult. Patient has not been seen in our office yet. Patient has never required hemodialysis. Renal function improves in hospital without needing MEDICAL DIAGNOSTIC RADIOGRAPHER. Patient was last seen by our group end of January 2022 for ALMA on CKD, ALMA felt to be prerenal from UTI, hyperglycemia and concurrent diuretic use. Her creatinine peaked at 4.30 mg on admission, with IV fluids renal function improving with serum creatinine of 3.67 mg/dL at time of discharge. Patient was also seen by our group in December 2021 for ALMA, ALMA secondary to volume depletion with hyperglycemia and UTI. Her creatinine peaked at 3.2 mg/dL and by time of discharge was improving to 2.7 mg/dL. Patient had [facility] after last hospitalization and presented to the emergency room yesterday with complaints of coffee-ground emesis that has been going on for a few days prior to admission. Her creatinine was 5.02 mg/dL. Patient has been started on IV fluids, today her creatinine is 4.94 mg/dL. Patient is alert and oriented but very drowsy. Reports has been feeling unwell for some time, complaining of nausea with vomiting. She was admitted for coffee-ground emesis suspected to be secondary to gastritis, started on Protonix drip and IV fluids, GI consulted. [facility] Medical History Anemia Cardiology follow-up encounter Chronic pain syndrome CKD (chronic kidney disease) stage 4, GFR 15-29 ml/min Closed intertrochanteric fracture of left hip Diabetes Diabetes mellitus with hyperglycemia Dietary restriction Essential hypertension Excessive bleeding Fall Gastric reflux High cholesterol History of echocardiogram History of edema History of orthostatic hypotension History of stress test HLD (hyperlipidemia) HTN (hypertension) Hx of orthostatic hypotension Injury of head and neck Insulin dependent diabetes mellitus Low iron Malnutrition Migraine headache Migraine without aura Non-smoker Post-concussion syndrome Symptomatic anemia Syncope Transfusion of blood during current hospitalisation Type II diabetes mellitus Vertigo Vomiting Wears glasses Home Medications diltiazem HCl 180 mg capsule,extended release 24 hr 180 mg PO DAILY blood pressure 12/17/18 [History Last Taken 03/13/22] aspirin 81 mg chewable tablet 81 mg PO QHS HEART HEALTH 12/15/19 [History Last Taken 03/13/22] atorvastatin 40 mg tablet 40 mg PO QHS CHOLESTEROL 12/15/19 [History Last Taken 03/13/22] pantoprazole 40 mg tablet,delayed release 40 mg PO DAILY GERD 12/15/19 [History Last Taken 03/13/22] clonidine HCl 0.3 mg tablet 0.3 mg PO TID BLOOD PRESSURE 01/06/22 [History Last Taken 03/13/22] insulin lispro 100 unit/mL subcutaneous pen (Humalog KwikPen (U-100) Insulin) 8 unit subcut TIDCM diabetes 01/06/22 [History Last Taken 03/13/22] sertraline 50 mg tablet 50 mg PO QHS DEPRESSION 01/06/22 [History Last Taken 03/13/22] tramadol 50 mg tablet 50 mg PO BID PRN Pain 01/06/22 [History Last Taken 03/13/22] ferrous sulfate 325 mg (65 mg iron) tablet (FeroSul) 325 mg PO QHS SUPPLEMENT 02/13/22 [History Last Taken 03/13/22] polyethylene glycol 3350 17 gram oral powder packet 17 g PO DAILY PRN Constipation 02/13/22 [History Last Taken 03/13/22] pregabalin 75 mg capsule 75 mg PO BID PAIN 02/25/22 [History Last Taken 03/13/22] insulin glargine-yfgn 100 unit/mL (3 mL) subcutaneous pen 25 unit (0.25 mL) subcut QHS DIABETES #15 mL 02/28/22 [Rx Last Taken 03/13/22] cephalexin 500 mg capsule 500 mg PO Q6 INFECTION 03/14/22 [History Last Taken 03/13/22] sulfamethoxazole 800 mg-trimethoprim 160 mg tablet 1 tab PO BID INFECTION 03/14/22 [History Last Taken 03/13/22] Allergy/AdvReac Type Severity Reaction Status Date / Time metformin AdvReac Diarrhea Verified 03/14/22 11:37 Family History Mother Hypertension Father Cancer lymphoma, leukemia Emphysema of lung Grandmother Diabetes Surgical History History of cholecystectomy History of cholecystectomy History of esophagogastroduodenoscopy (EGD) History of mandibular surgery Hx of colonoscopy Social History household members: significant other Smoking Status: Never smoker alcohol intake: never substance use type: does not use ROS ROS Narrative As in HPI and past medical history Physical Exam Narrative Alert and oriented x3, no apparent distress. Patient is drowsy S1, S2, RRR Lung sounds clear anteriorly. No wheezes, rhonchi or rales noted. Diminished breath sounds posterior bases Abdomen soft, nontender Bilateral legs Daniel wrap intact from foot to knee. No pitting edema above knees Lab / Micro Data Result Diagrams: 03/16/22 06:17 03/16/22 06:17 Labs: Laboratory Results - last 24 hr 03/14/22 12:25: WBC 9.9, RBC 2.91 L, Hgb 8.1 L, Hct 25.3 L, MCV 86.9, MCH 27.8, MCHC 32.0, RDW Std Deviation 50.4 H, RDW Coeff of Chris 15.9 H, Plt Count 293, MPV 10.6, Immature Gran % (Auto) 0.300, Neut % (Auto) 89.8 H, Lymph % (Auto) 7.0 L, [place] % (Auto) 2.2, Eos % (Auto) 0.1, Baso % (Auto) 0.6, Absolute Neuts (auto) 8.9 H, Absolute Lymphs (auto) 0.69 L, Nucleated RBC % 0 03/14/22 12:25: Sodium 135 L, Potassium 5.8 H, Chloride 103, Carbon Dioxide 19.0 L, Anion Gap 13, BUN 59 H, Creatinine 5.02 H, Estim Creat Clear Calc 10.86, Est GFR (MDRD) Af Amer 11 L, Est GFR (MDRD) Non-Af 9 L, BUN/Creatinine Ratio 11.8, Glucose 293 H, Calcium 8.7, Total Bilirubin 0.40, AST 13 L, ALT 14, Alkaline Phosphatase 152 H, Total Protein 7.1, Albumin 3.0 L, Globulin 4.1, Albumin/Globulin Ratio 0.7 L, Lipase 93 03/14/22 12:25: B-Natriuretic Peptide 1801.0 H 03/14/22 19:24: Sodium 137, Potassium 5.5 H, Chloride 106, Carbon Dioxide 22.0, Anion Gap 9, BUN 58 H, Creatinine 4.87 H, Estim Creat Clear Calc 11.19, Est GFR (MDRD) Af Amer 12 L, Est GFR (MDRD) Non-Af 10 L, BUN/Creatinine Ratio 11.9, Glucose 245 H, Calcium 8.9 03/14/22 21:47: POC Glucose 226 H 03/14/22 23:15: WBC 9.7, RBC 2.53 L, Hgb 6.9 L, Hct 21.5 L, MCV 85.0, MCH 27.3, MCHC 32.1, RDW Std Deviation 48.6 H, RDW Coeff of Chris 15.8 H, Plt Count 284, MPV 10.5, Immature Gran % (Auto) 0.300, Neut % (Auto) 83.1 H, Lymph % (Auto) 11.5 L, [place] % (Auto) 4.4, Eos % (Auto) 0.3, Baso % (Auto) 0.4, Absolute Neuts (auto) 8.1 H, Absolute Lymphs (auto) 1.12, Nucleated RBC % 0 03/14/22 23:15: Sodium 137, Potassium 5.2 H, Chloride 107, Carbon Dioxide 23.0, Anion Gap 7, BUN 58 H, Creatinine 5.08 H, Estim Creat Clear Calc 10.73, Est GFR (MDRD) Af Amer 11 L, Est GFR (MDRD) Non-Af 9 L, BUN/Creatinine Ratio 11.4, Glucose 215 H, Calcium 8.5, Total Bilirubin 0.30, Direct Bilirubin 0.08, AST 8 L, ALT 13, Alkaline Phosphatase 132 H, Total Protein 6.7, Albumin 2.8 L, Globulin 3.9, Albumin/Globulin Ratio 0.7 L, Lipase 59 L 03/14/22 23:15: B-Natriuretic Peptide 2059.4 H 03/14/22 23:15: Lactic Acid 1.1 03/15/22 01:20: Blood Type A POSITIVE, Antibody Screen NEGATIVE, Crossmatch See Detail 03/15/22 06:22: POC Glucose 81 03/15/22 07:52: WBC 8.7, RBC 2.97 L, Hgb 7.8 L, Hct 25.5 L, MCV 85.9, MCH 26.3 L, MCHC 30.6 L, RDW Std Deviation 50.0 H, RDW Coeff of Chris 15.9 H, Plt Count 235, MPV 10.3, Immature Gran % (Auto) 0.500, Neut % (Auto) 79.9 H, Lymph % (Auto) 13.2 L, [place] % (Auto) 5.0, Eos % (Auto) 1.1, Baso % (Auto) 0.3, Absolute Neuts (auto) 7.0, Absolute Lymphs (auto) 1.15, Nucleated RBC % 0 03/15/22 07:52: Sodium 139, Potassium 4.9, Chloride 110 H, Carbon Dioxide 22.0, Anion Gap 7, BUN 54 H, Creatinine 4.94 H, Estim Creat Clear Calc 11.03, Est GFR (MDRD) Af Amer 12 L, Est GFR (MDRD) Non-Af 10 L, BUN/Creatinine Ratio 10.9, Glucose 82, Calcium 8.4 L, Phosphorus 5.1 H, Magnesium 2.2 03/15/22 07:52: Ammonia 25.0 ABG Data ABG results: ABG 03/14/22 23:58 Specimen Type ERVIN VBG pH 7.31 L VBG pO2 82 H VBG HCO3 20 L VBG Total CO2 22 L VBG O2 Sat (Calc) 95 H VBG Base Excess -6 L POC Mix VBG pCO2 Pt Tmp 40.5 L Radiology Impression Abdomen/Pelvis CT 03/14/22 12:36 IMPRESSION: Small bilateral pleural effusions with bibasilar atelectasis and/or infiltration. Diffuse atherosclerotic calcification of the aorta and major visceral branches. Large amount of fecal material is seen in the colon. Electronically Signed: Angel Manley MD at 13:28 EST , Chest X-Ray 03/14/22 14:13 IMPRESSION: Findings suggestive of mild degree of CHF with superimposed atelectasis and/or infiltrates at the lung bases with blunting of both costophrenic angles. Electronically Signed: Angel Manley MD at 15:11 EST , Documented by User: Dr. Cora Gilbert MD 03/16/22 14:44 Assessment & Plan Assessment/Plan (1) Acute kidney injury superimposed on chronic kidney disease: (2) Hyperkalemia: (3) Nausea & vomiting: (4) Chronic kidney disease (CKD) stage G4/A2, severely decreased glomerular filtration rate (GFR) between 15-29 mL/min/1.73 square meter and albuminuria creatinine ratio between 30-299 mg/g: (5) Coffee ground emesis: HPI Consult Data Date of Consult: 03/16/22 [facility] Medical History Anemia Cardiology follow-up encounter Chronic pain syndrome CKD (chronic kidney disease) stage 4, GFR 15-29 ml/min Closed intertrochanteric fracture of left hip Diabetes Diabetes mellitus with hyperglycemia Dietary restriction Essential hypertension Excessive bleeding Fall Gastric reflux High cholesterol History of echocardiogram History of edema History of orthostatic hypotension History of stress test HLD (hyperlipidemia) HTN (hypertension) Hx of orthostatic hypotension Injury of head and neck Insulin dependent diabetes mellitus Low iron Malnutrition Migraine headache Migraine without aura Non-smoker Post-concussion syndrome Symptomatic anemia Syncope Transfusion of blood during current hospitalisation Type II diabetes mellitus Vertigo Vomiting Wears glasses Home Medications diltiazem HCl 180 mg capsule,extended release 24 hr 180 mg PO DAILY blood pressure 12/17/18 [History Last Taken 03/13/22] aspirin 81 mg chewable tablet 81 mg PO QHS HEART HEALTH 12/15/19 [History Last Taken 03/13/22] atorvastatin 40 mg tablet 40 mg PO QHS CHOLESTEROL 12/15/19 [History Last Taken 03/13/22] pantoprazole 40 mg tablet,delayed release 40 mg PO DAILY GERD 12/15/19 [History Last Taken 03/13/22] clonidine HCl 0.3 mg tablet 0.3 mg PO TID BLOOD PRESSURE 01/06/22 [History Last Taken 03/13/22] insulin lispro 100 unit/mL subcutaneous pen (Humalog KwikPen (U-100) Insulin) 8 unit subcut TIDCM diabetes 01/06/22 [History Last Taken 03/13/22] sertraline 50 mg tablet 50 mg PO QHS DEPRESSION 01/06/22 [History Last Taken 03/13/22] tramadol 50 mg tablet 50 mg PO BID PRN Pain 01/06/22 [History Last Taken 03/13/22] ferrous sulfate 325 mg (65 mg iron) tablet (FeroSul) 325 mg PO QHS SUPPLEMENT 02/13/22 [History Last Taken 03/13/22] polyethylene glycol 3350 17 gram oral powder packet 17 g PO DAILY PRN Constipation 02/13/22 [History Last Taken 03/13/22] pregabalin 75 mg capsule 75 mg PO BID PAIN 02/25/22 [History Last Taken 03/13/22] insulin glargine-yfgn 100 unit/mL (3 mL) subcutaneous pen 25 unit (0.25 mL) subcut QHS DIABETES #15 mL 02/28/22 [Rx Last Taken 03/13/22] cephalexin 500 mg capsule 500 mg PO Q6 INFECTION 03/14/22 [History Last Taken 03/13/22] sulfamethoxazole 800 mg-trimethoprim 160 mg tablet 1 tab PO BID INFECTION 03/14/22 [History Last Taken 03/13/22] Allergy/AdvReac Type Severity Reaction Status Date / Time metformin AdvReac Diarrhea Verified 03/14/22 11:37 Family History Mother Hypertension Father Cancer lymphoma, leukemia Emphysema of lung Grandmother Diabetes Surgical History History of cholecystectomy History of cholecystectomy History of esophagogastroduodenoscopy (EGD) History of mandibular surgery Hx of colonoscopy Social History household members: significant other Smoking Status: Never smoker alcohol intake: never substance use type: does not use Lab / Micro Data Result Diagrams: 03/16/22 06:17 03/16/22 06:17
--- NOTE | 2022-03-15 13:13 | CASEMGMT ---
PRIYA SILVA chart review: Patient was admitted 02/25-02/28/22 for ALMA, UTI. Patient was discharge to home with [facility] services for SN, PT/OT, and SW. Patient returned to the ED on 03/07/22 for edema to lower extretimity with redness. Patient was discharged to home with antibiotics Bactrim and Keflex. Patient returned to [facility] ED on 03/14/22 for GI bleed. Patient had coffee ground emesis. Patient also being treated for ALMA with nephrology consulted. GI consulted. [facility] updated regarding patient's admission. Plan is for patient to return home with resumption of HHC. CM will continue to follow this patient and plan for a safe discharge.
[2022-03-15 14:26] LABS: Bacteria 0 SEEN /hpf (None Seen); Mucous, Urine 0 SEEN /hpf (<or=2+); Red Blood Cells-Urine 0 SEEN /hpf (0-5)
[2022-03-15 14:27] LABS: Color, Urine Yellow (Yellow); Glucose, Dipstick Normal (Normal); Ketone-Dipstick Negative (Negative); Leukocyte Esterase-Dipstick 500 /ul (Negative); Nitrite-Dipstick Negative (Negative); Occult Blood-Urine 50 /ul (Negative); Protein-Dipstick 100 mg/dl (Negative); Urine Bilirubin Dipstick Negative (Negative); Urine Clarity Sl. Cloudy (Clear); Urine Urobilinogen Normal (Normal)
[2022-03-15 14:33] LABS: Squamous Epithelial Cells - UA 0-5 SEEN /hpf (5-10); White Blood Cells >100 SEEN /hpf (0-5)
[2022-03-15] MEDS: Ceftriaxone 1 GM/50 ML BAG IV (16:40)
[2022-03-15] MEDS: 0.9% Normal Saline 1,000 ML 75 ML IV (16:42)
[2022-03-15 16:56] LABS: Bedside Glucose 126 mg/dL (74-106)
--- NOTE | 2022-03-15 17:58 | EX.PCM.CON.G ---
HPI Consult Data Date of Consult: 03/15/22 HPI Narrative Reason for Consultation: coffee ground emesis HPI Narrative: LAYNE VINCENT, is a 61-year-old female past medical history of diabetes states she has had nausea and vomiting since yesterday.? She has vomited multiple times, a brownish substance in nature.? She has epigastric to diffuse abdominal pain along with this.? She denies any other bleeding diathesis, no problems with diarrhea or rectal bleeding.? No fevers or chills.? She states her blood sugar was elevated in the 200s today and she is still taking her insulin.? She presents mainly because of the nausea and vomiting that has been ongoing since yesterday.? No exacerbating or alleviating factors. She has a H diabetes mellitus type 2, with recent hospitalization for acute kidney injury superimposed on chronic kidney disease, acute cystitis [facility]. She was brought back to the emergency department with coffee-ground emesis.?? In addition to the coffee-ground emesis patient did complain of abdominal discomfort.? CT of the abdomen obtained did show small bilateral pleural effusions with bibasilar atelectasis and/or infiltration. Diffuse atherosclerotic calcification of the aorta and major visceral branches. Large amount of fecal material is seen in the colon.?? [facility] Medical History Anemia Cardiology follow-up encounter Chronic pain syndrome CKD (chronic kidney disease) stage 4, GFR 15-29 ml/min Closed intertrochanteric fracture of left hip Diabetes Diabetes mellitus with hyperglycemia Dietary restriction Essential hypertension Excessive bleeding Fall Gastric reflux High cholesterol History of echocardiogram History of edema History of orthostatic hypotension History of stress test HLD (hyperlipidemia) HTN (hypertension) Hx of orthostatic hypotension Injury of head and neck Insulin dependent diabetes mellitus Low iron Malnutrition Migraine headache Migraine without aura Non-smoker Post-concussion syndrome Symptomatic anemia Syncope Transfusion of blood during current hospitalisation Type II diabetes mellitus Vertigo Vomiting Wears glasses Home Medications diltiazem HCl 180 mg capsule,extended release 24 hr 180 mg PO DAILY blood pressure 12/17/18 [History Last Taken 03/13/22] aspirin 81 mg chewable tablet 81 mg PO QHS HEART HEALTH 12/15/19 [History Last Taken 03/13/22] atorvastatin 40 mg tablet 40 mg PO QHS CHOLESTEROL 12/15/19 [History Last Taken 03/13/22] pantoprazole 40 mg tablet,delayed release 40 mg PO DAILY GERD 12/15/19 [History Last Taken 03/13/22] clonidine HCl 0.3 mg tablet 0.3 mg PO TID BLOOD PRESSURE 01/06/22 [History Last Taken 03/13/22] insulin lispro 100 unit/mL subcutaneous pen (Humalog KwikPen (U-100) Insulin) 8 unit subcut TIDCM diabetes 01/06/22 [History Last Taken 03/13/22] sertraline 50 mg tablet 50 mg PO QHS DEPRESSION 01/06/22 [History Last Taken 03/13/22] tramadol 50 mg tablet 50 mg PO BID PRN Pain 01/06/22 [History Last Taken 03/13/22] ferrous sulfate 325 mg (65 mg iron) tablet (FeroSul) 325 mg PO QHS SUPPLEMENT 02/13/22 [History Last Taken 03/13/22] polyethylene glycol 3350 17 gram oral powder packet 17 g PO DAILY PRN Constipation 02/13/22 [History Last Taken 03/13/22] pregabalin 75 mg capsule 75 mg PO BID PAIN 02/25/22 [History Last Taken 03/13/22] insulin glargine-yfgn 100 unit/mL (3 mL) subcutaneous pen 25 unit (0.25 mL) subcut QHS DIABETES #15 mL 02/28/22 [Rx Last Taken 03/13/22] cephalexin 500 mg capsule 500 mg PO Q6 INFECTION 03/14/22 [History Last Taken 03/13/22] sulfamethoxazole 800 mg-trimethoprim 160 mg tablet 1 tab PO BID INFECTION 03/14/22 [History Last Taken 03/13/22] Allergy/AdvReac Type Severity Reaction Status Date / Time metformin AdvReac Diarrhea Verified 03/14/22 11:37 Family History Mother Hypertension Father Cancer lymphoma, leukemia Emphysema of lung Grandmother Diabetes Surgical History History of cholecystectomy History of cholecystectomy History of esophagogastroduodenoscopy (EGD) History of mandibular surgery Hx of colonoscopy Social History household members: significant other Smoking Status: Never smoker alcohol intake: never substance use type: does not use ROS ROS Narrative GENERAL: denies fever, chills, night sweats, weight loss, anorexia HEENT: denies headache, sinus congestion, or drainage, dysphagia RESPIRATORY: denies cough, sputum production, shortness of breath, dyspnea on exertion CARDIAC: denies chest pain, palpitations, orthopnea, PND GASTROINTESTINAL: Abdominal pain, coffee-ground emesis GENITOURINARY: denies dysuria, urgency, frequency, heamaturia EXTREMITY: denies swelling MUSCULOSKELETAL: denies current joint pain or tenderness NEUROLOGIC: denies focal numbness, weakness, tingling HEMATOLOGIC: denies easy bruising and/or hemorrhage INTEGUMENT: denies rashes PSYCHIATRIC: denies suicidal or homicidal ideation Physical Exam Narrative GENERAL: Patient appears ill looking HEENT: Atraumatic; normocephalic EYES; Anicteric, Normal Conjunctiva NECK; supple, normal thyroid, RESPIRATORY: Diminished to auscultation CARDIOVASCULAR: Regular S1 S2, GI: soft, normoactive bowel sounds, : No Renal angle tenderness; EXTREMITIES: No edema, no clubbing, MUSCULOSKELETAL: no muscle wasting NEURO: Awake; no lateralizing signs. SKIN: No Rash PSYCH; Flat affect Lab / Micro Data Result Diagrams: 03/15/22 07:52 03/15/22 07:52 Labs: Laboratory Results - last 24 hr 03/14/22 19:24: Sodium 137, Potassium 5.5 H, Chloride 106, Carbon Dioxide 22.0, Anion Gap 9, BUN 58 H, Creatinine 4.87 H, Estim Creat Clear Calc 11.19, Est GFR (MDRD) Af Amer 12 L, Est GFR (MDRD) Non-Af 10 L, BUN/Creatinine Ratio 11.9, Glucose 245 H, Calcium 8.9 03/14/22 21:47: POC Glucose 226 H 03/14/22 23:15: WBC 9.7, RBC 2.53 L, Hgb 6.9 L, Hct 21.5 L, MCV 85.0, MCH 27.3, MCHC 32.1, RDW Std Deviation 48.6 H, RDW Coeff of Chris 15.8 H, Plt Count 284, MPV 10.5, Immature Gran % (Auto) 0.300, Neut % (Auto) 83.1 H, Lymph % (Auto) 11.5 L, [place] % (Auto) 4.4, Eos % (Auto) 0.3, Baso % (Auto) 0.4, Absolute Neuts (auto) 8.1 H, Absolute Lymphs (auto) 1.12, Nucleated RBC % 0 03/14/22 23:15: Sodium 137, Potassium 5.2 H, Chloride 107, Carbon Dioxide 23.0, Anion Gap 7, BUN 58 H, Creatinine 5.08 H, Estim Creat Clear Calc 10.73, Est GFR (MDRD) Af Amer 11 L, Est GFR (MDRD) Non-Af 9 L, BUN/Creatinine Ratio 11.4, Glucose 215 H, Calcium 8.5, Total Bilirubin 0.30, Direct Bilirubin 0.08, AST 8 L, ALT 13, Alkaline Phosphatase 132 H, Total Protein 6.7, Albumin 2.8 L, Globulin 3.9, Albumin/Globulin Ratio 0.7 L, Lipase 59 L 03/14/22 23:15: B-Natriuretic Peptide 2059.4 H 03/14/22 23:15: Lactic Acid 1.1 03/15/22 01:20: Blood Type A POSITIVE, Antibody Screen NEGATIVE, Crossmatch See Detail 03/15/22 06:22: POC Glucose 81 03/15/22 07:52: WBC 8.7, RBC 2.97 L, Hgb 7.8 L, Hct 25.5 L, MCV 85.9, MCH 26.3 L, MCHC 30.6 L, RDW Std Deviation 50.0 H, RDW Coeff of Chris 15.9 H, Plt Count 235, MPV 10.3, Immature Gran % (Auto) 0.500, Neut % (Auto) 79.9 H, Lymph % (Auto) 13.2 L, [place] % (Auto) 5.0, Eos % (Auto) 1.1, Baso % (Auto) 0.3, Absolute Neuts (auto) 7.0, Absolute Lymphs (auto) 1.15, Nucleated RBC % 0 03/15/22 07:52: Sodium 139, Potassium 4.9, Chloride 110 H, Carbon Dioxide 22.0, Anion Gap 7, BUN 54 H, Creatinine 4.94 H, Estim Creat Clear Calc 11.03, Est GFR (MDRD) Af Amer 12 L, Est GFR (MDRD) Non-Af 10 L, BUN/Creatinine Ratio 10.9, Glucose 82, Calcium 8.4 L, Phosphorus 5.1 H, Magnesium 2.2 03/15/22 07:52: Ammonia 25.0 03/15/22 14:20: Urine Color Yellow, Urine Clarity Sl. Cloudy, Urine pH 8.0, Ur Specific [place] 1.010, Urine Protein 100 H, Urine Glucose (UA) Normal, Urine Ketones Negative, Urine Occult Blood 50 H, Urine Nitrite Negative, Urine Bilirubin Negative, Urine Urobilinogen Normal, Ur Leukocyte Esterase 500 H, Urine RBC 0 SEEN, Urine WBC >100 SEEN, Ur Squamous Epith Cells 0-5 SEEN, Urine Bacteria 0 SEEN, Urine Mucus 0 SEEN 03/15/22 14:21: POC Glucose 126 H ABG Data ABG results: ABG 03/14/22 23:58 Specimen Type ERVIN VBG pH 7.31 L VBG pO2 82 H VBG HCO3 20 L VBG Total CO2 22 L VBG O2 Sat (Calc) 95 H VBG Base Excess -6 L POC Mix VBG pCO2 Pt Tmp 40.5 L Assessment & Plan Assessment/Plan (1) Coffee ground emesis: PLAN: She should go on Protonix 40 mg IV twice daily and Reglan 5 mg IV every 6 hours scheduled for her constant nausea. I suspect she has elements of gastroparesis second [place] to underlying health issues such as diabetes. The differential diagnosis for upper GI bleed could be peptic ulcer disease, Milagro-Awad tear, erosive esophagitis, angiodysplasia. She should undergo an upper endoscopy to evaluate upper GI tract. N.p.o. past midnight. Charges/Coding Visit Charges Inpatient E&M: 99258 Init Hosp L2
[2022-03-15 20:16] LABS: Bedside Glucose 121 mg/dL (74-106)
[2022-03-15] MEDS: Sertraline 50 MG Tablet PO (22:04)
[2022-03-15] MEDS: Atorvastatin Calcium 40 MG Tablet PO (22:04)
[2022-03-15] MEDS: Ferrous Sulfate 325 MG Tablet PO (22:04)
[2022-03-15] MEDS: Insulin Glargine-YFGN 100 UNIT/ML Pen 25 UNIT SC (22:06)
[2022-03-15] MEDS: Insulin Lispro 100 UNIT/ML INSULN.PEN SC (22:06)
[2022-03-15] MEDS: Aspirin 81 MG TAB.CHEW PO (22:07)
[2022-03-16] VITALS (14 sets, daily range): BP systolic 147–173; BP diastolic 72–94; PULSE 65–88; RESP 12–18; TEMP 36.6–36.7; O2SAT 88–98
[2022-03-16 01:36] LABS: Bedside Glucose 161 mg/dL (74-106)
--- NOTE | 2022-03-16 05:55 | EKG12_ITS ---
Test Reason : AM EKG Blood Pressure : / mmHG Vent. Rate : 077 BPM Atrial Rate : 077 BPM P-R Int : 160 ms QRS Dur : 088 ms QT Int : 402 ms P-R-T Axes : 076 042 080 degrees QTc Int : 454 ms Normal sinus rhythm Normal ECG When compared with ECG of 14-MAR-2022 14:16, MANUAL COMPARISON REQUIRED, DATA IS UNCONFIRMED Confirmed by ALYSSIA AMEZCUA, KARLA ([id number]), legal editor RAFI DOMINGO ([id number]) on 03/16/2022 1:03:48 PM Referred By: NIKO Confirmed By:KARLA CADE MD
[2022-03-16] MEDS: 0.9% Normal Saline 1,000 ML 75 ML IV ×2 (06:10→17:26)
--- NOTE | 2022-03-16 06:20 | NURSING ---
Blood sugar this AM was 44, patient did not c/o any sx of hypoglycemia, AMP of D50 was given, sugar improved to 128
[2022-03-16] MEDS: Dextrose 50%-Water 25 GM/50 ML DISP.SYRIN IV ×2 (06:29→17:53)
[2022-03-16 06:59] LABS: Absolute Lymphocyte Count 1.12 X10^3/uL (0.83-4.51); Absolute Neutrophil Count 5.5 X10^3/uL (2.0-7.7); Basophil# 0.05 X10^3/uL; Basophil% 0.7 % (0-1); Eosinophil# 0.32 X10^3/uL; Eosinophils% 4.3 % (0-5); Hematocrit 25.3 % (37-47); Hemoglobin 8.2 g/dL (12.0-15.0); Lymphocyte # 1.12 X10^3/ul (0.83-4.51); Mean Corp Hgb Conc 32.4 g/dL (32-36); Mean Corpuscular Volume 86.3 fL (81-99); Mean Platelet Vol. 10.2 fl (6.2-12.0); Monocyte# 0.41 X10^3/uL; Monocyte% 5.5 % (0-10); NRBC Flagged by Analyzer 0 % (0-5); Neutrophil # 5.54 X10^3/uL (2.7-7.7); Platelet Count 241 K/mm3 (150-450); RBC Distribution Width CV 16.5 % (11.6-14.6); RBC Distribution Width SD 51.8 fl (35.1-43.9); Red Blood Count 2.93 M/mm3 (4.2-5.4); White Blood Count 7.5 K/mm3 (4.4-11.0)
[2022-03-16 07:10] LABS: Bedside Glucose 128 mg/dL (74-106)
[2022-03-16 07:13] LABS: International Normalized Ratio 1.2; Prothrombin Time (Protime)PT. 15.2 SECONDS (11.7-14.9)
[2022-03-16 07:14] LABS: Partial Thromboplast Time 36.5 Seconds (24.1-36.2)
[2022-03-16 07:20] LABS: Bedside Glucose 44 mg/dL (74-106)
--- NOTE | 2022-03-16 07:39 | PCM.PN.HOSP ---
Subjective Subjective Patient was seen in consultation by Dr. Castrejon with GI plans for patient to undergo endoscopic evaluation this a.m. Objective Data Objective Data Vital Signs: Vital Signs Temp Pulse Resp BP Pulse Ox O2 Del Method O2 Flow Rate 97.8 F 77 17 164/85 H 95 Nasal Cannula 2 03/16/22 03:14 03/16/22 07:00 03/16/22 03:14 03/16/22 03:14 03/16/22 03:14 03/16/22 04:06 03/16/22 04:06 Oxygen Flow Rate (L/min) 2 Oxygen Delivery Method Nasal Cannula Weight: 84.6 kg Body Mass Index (BMI) 31.7 Intake & Output: Intake and Output for Last 24 Hours 03/14/22 03/15/22 03/16/22 23:59 23:59 23:59 Intake Total 1498.75 / 1498.75 1876.25 / 1876.25 1100 / 1100 Output Total 400 / 400 0 / 0 Balance 1498.75 / 1498.75 1476.25 / 1476.25 1100 / 1100 Lab / Micro Data Result Diagrams: 03/16/22 06:17 03/16/22 06:17 Labs: Laboratory Results - last 24 hr 03/15/22 01:20: Crossmatch See Detail 03/15/22 07:52: WBC 8.7, RBC 2.97 L, Hgb 7.8 L, Hct 25.5 L, MCV 85.9, MCH 26.3 L, MCHC 30.6 L, RDW Std Deviation 50.0 H, RDW Coeff of Chris 15.9 H, Plt Count 235, MPV 10.3, Immature Gran % (Auto) 0.500, Neut % (Auto) 79.9 H, Lymph % (Auto) 13.2 L, [place] % (Auto) 5.0, Eos % (Auto) 1.1, Baso % (Auto) 0.3, Absolute Neuts (auto) 7.0, Absolute Lymphs (auto) 1.15, Nucleated RBC % 0 03/15/22 07:52: Sodium 139, Potassium 4.9, Chloride 110 H, Carbon Dioxide 22.0, Anion Gap 7, BUN 54 H, Creatinine 4.94 H, Estim Creat Clear Calc 11.03, Est GFR (MDRD) Af Amer 12 L, Est GFR (MDRD) Non-Af 10 L, BUN/Creatinine Ratio 10.9, Glucose 82, Calcium 8.4 L, Phosphorus 5.1 H, Magnesium 2.2 03/15/22 07:52: Ammonia 25.0 03/15/22 14:20: Urine Color Yellow, Urine Clarity Sl. Cloudy, Urine pH 8.0, Ur Specific [employer] 1.010, Urine Protein 100 H, Urine Glucose (UA) Normal, Urine Ketones Negative, Urine Occult Blood 50 H, Urine Nitrite Negative, Urine Bilirubin Negative, Urine Urobilinogen Normal, Ur Leukocyte Esterase 500 H, Urine RBC 0 SEEN, Urine WBC >100 SEEN, Ur Squamous Epith Cells 0-5 SEEN, Urine Bacteria 0 SEEN, Urine Mucus 0 SEEN 03/15/22 14:21: POC Glucose 126 H 03/15/22 16:46: POC Glucose 121 H 03/15/22 22:05: POC Glucose 161 H 03/16/22 06:16: POC Glucose 44 L* 03/16/22 06:17: WBC 7.5, RBC 2.93 L, Hgb 8.2 L, Hct 25.3 L, MCV 86.3, MCH 28.0, MCHC 32.4 D, RDW Std Deviation 51.8 H, RDW Coeff of Chris 16.5 H, Plt Count 241, MPV 10.2, Immature Gran % (Auto) 0.500, Neut % (Auto) 74.0 H, Lymph % (Auto) 15.0 L, [place] % (Auto) 5.5, Eos % (Auto) 4.3, Baso % (Auto) 0.7, Absolute Neuts (auto) 5.5, Absolute Lymphs (auto) 1.12, Nucleated RBC % 0 03/16/22 06:17: PT 15.2 H, INR 1.2, APTT 36.5 H 03/16/22 06:49: POC Glucose 128 H Physical Exam Narrative GENERAL: Patient appears ill looking HEENT: Atraumatic; normocephalic EYES; Anicteric, Normal Conjunctiva NECK; supple, normal thyroid, RESPIRATORY: Diminished to auscultation CARDIOVASCULAR: Regular S1 S2, GI: soft, normoactive bowel sounds, : No Renal angle tenderness; EXTREMITIES: No edema, no clubbing, MUSCULOSKELETAL: no muscle wasting NEURO: Awake; no lateralizing signs. SKIN: No Rash PSYCH; Flat affect Assessment & Plan Assessment/Plan (1) Hyperkalemia: (2) Acute kidney injury superimposed on chronic kidney disease: PLAN: Plan Patient is a 61-year-old lady presented with coffee-ground emesis, abdominal pain, found to have acute kidney injury superimposed on chronic kidney disease as well as hyperkalemia 1. Coffee-ground emesis ? Spectated secondary to gastritis. Patient started on Protonix drip admitted to monitored bed, patient being monitored with every 6 H&H, consult was placed to GI ? 03/15/2022; patient has drop in her hemoglobin level. Did continue with treatment as described above with consultation placed to GI ? 03/16/2022 Patient was seen in consultation by Dr. Castrejon with GI plans for patient to undergo endoscopic evaluation this a.m. 2. Anemia ? Secondary to acute blood loss anemia monitoring H&H with plans to transfuse if hemoglobin falls below 7 3. Acute kidney injury ? Superimposed on chronic kidney disease stage V. Discharge creatinine was 3.67 had worsened to 5.02 patient started on IV fluids consult placed to nephrology 4. Hyperkalemia Secondary to above treatment initiated in the ED. Response to therapy being monitored with repeat BMP 5. Diabetes mellitus type 2 ? Patient presented with hyperglycemia her oral hypoglycemic agent held please on Accu-Cheks before meals and at bedtime with sliding scale coverage 6. Essential hypertension ? Patient blood pressure control not optimal did continue with home meds also added hydralazine as needed to keep systolic blood pressure less than 140 7. Diabetic polyneuropathy ? Patient is on Lyrica continue 8. Dyslipidemia -Patient is on statin therapy, continued at home dose 9. DVT prophylaxis Avoided chemoprophylaxis in view of patient's presentation. Did initiate SCDs 10. Obstipation -plan is to treat symptomatically Charges/Coding Visit Charges Inpatient E&M: 07840 Subs Hosp L2
[2022-03-16 07:42] LABS: Anion Gap 7 (5-15); BUN 52 mg/dL (7-18); BUN/Creat Ratio 10.9 RATIO (10-20); Calcium,Total 8.3 mg/dL (8.5-10.1); Chloride 110 mmol/L (98-107); Creatinine, Serum 4.75 mg/dL (0.55-1.02); EST Glomerular Filtration Rate 10 mL/min (>60); Est Glom Filt Rate - Afr Amer 12 mL/min (>60); Estimated Creatinine Clearance 11.48 ml/min; Glucose 50 mg/dL (74-106); Potassium 4.3 mmol/L (3.5-5.1); Sodium Level 140 mmol/L (136-145)
[2022-03-16 07:48] LABS: Hemoglobin A1c 7.4 % (3.8-5.6)
[2022-03-16 07:56] LABS: Digoxin Level 0.09 ng/mL (0.80-2.00)
--- NOTE | 2022-03-16 09:27 | PCM.PN.REN ---
Documented by User: JUAN MANUEL Rivas 03/16/22 09:35 Subjective Subjective Following for ALMA on CKD Patient is more alert and oriented this morning. No complaints. Denies any nausea. Objective Data Objective Data Vital Signs: Vital Signs Temp Pulse Resp BP Pulse Ox O2 Del Method O2 Flow Rate 97.8 F 77 17 164/85 H 95 Nasal Cannula 2 03/16/22 03:14 03/16/22 07:00 03/16/22 03:14 03/16/22 03:14 03/16/22 03:14 03/16/22 08:35 03/16/22 08:35 Oxygen Flow Rate (L/min) 2 Oxygen Delivery Method Nasal Cannula Weight: 84.6 kg Body Mass Index (BMI) 31.7 Intake & Output: Intake and Output for Last 24 Hours 03/14/22 03/15/22 03/16/22 23:59 23:59 23:59 Intake Total 1498.75 / 1498.75 1876.25 / 1876.25 1100 / 1100 Output Total 400 / 400 0 / 0 Balance 1498.75 / 1498.75 1476.25 / 1476.25 1100 / 1100 Lab / Micro Data Result Diagrams: 03/16/22 06:17 03/16/22 06:17 Labs: Laboratory Results - last 24 hr 03/15/22 14:20: Urine Color Yellow, Urine Clarity Sl. Cloudy, Urine pH 8.0, Ur Specific [place] 1.010, Urine Protein 100 H, Urine Glucose (UA) Normal, Urine Ketones Negative, Urine Occult Blood 50 H, Urine Nitrite Negative, Urine Bilirubin Negative, Urine Urobilinogen Normal, Ur Leukocyte Esterase 500 H, Urine RBC 0 SEEN, Urine WBC >100 SEEN, Ur Squamous Epith Cells 0-5 SEEN, Urine Bacteria 0 SEEN, Urine Mucus 0 SEEN 03/15/22 14:21: POC Glucose 126 H 03/15/22 16:46: POC Glucose 121 H 03/15/22 22:05: POC Glucose 161 H 03/16/22 06:16: POC Glucose 44 L* 03/16/22 06:17: WBC 7.5, RBC 2.93 L, Hgb 8.2 L, Hct 25.3 L, MCV 86.3, MCH 28.0, MCHC 32.4 D, RDW Std Deviation 51.8 H, RDW Coeff of Chris 16.5 H, Plt Count 241, MPV 10.2, Immature Gran % (Auto) 0.500, Neut % (Auto) 74.0 H, Lymph % (Auto) 15.0 L, [place] % (Auto) 5.5, Eos % (Auto) 4.3, Baso % (Auto) 0.7, Absolute Neuts (auto) 5.5, Absolute Lymphs (auto) 1.12, Nucleated RBC % 0 03/16/22 06:17: Sodium 140, Potassium 4.3, Chloride 110 H, Carbon Dioxide 23.0, Anion Gap 7, BUN 52 H, Creatinine 4.75 H, Estim Creat Clear Calc 11.48, Est GFR (MDRD) Af Amer 12 L, Est GFR (MDRD) Non-Af 10 L, BUN/Creatinine Ratio 10.9, Glucose 50 L, Calcium 8.3 L 03/16/22 06:17: PT 15.2 H, INR 1.2, APTT 36.5 H 03/16/22 06:17: Digoxin 0.09 L 03/16/22 06:17: Hemoglobin A1c 7.4 H 03/16/22 06:49: POC Glucose 128 H Physical Exam Narrative Alert and oriented x3, no apparent distress. S1, S2, RRR Lung sounds clear anteriorly. No wheezes, rhonchi or rales noted. Diminished breath sounds posterior bases Abdomen soft, nontender Bilateral legs Daniel wrap intact from feet to knees. No pitting edema above knees Assessment & Plan Assessment/Plan (1) Acute kidney injury superimposed on chronic kidney disease: (2) Hyperkalemia: (3) Nausea & vomiting: (4) Chronic kidney disease (CKD) stage G4/A2, severely decreased glomerular filtration rate (GFR) between 15-29 mL/min/1.73 square meter and albuminuria creatinine ratio between 30-299 mg/g: (5) Coffee ground emesis: PLAN: Plan -ALMA on CKD, ALMA likely secondary to significant volume depletion with coffee-ground emesis. With IV fluids/volume expansion renal function has improved. Serum creatinine 5.02 mg/dL on admission and today her creatinine is 4.75 mg/dL. Patient has had multiple recurrent ALMA episodes over the past few months. Currently not on any DANIEL inhibitor, ARB or diuretics. -Hyperkalemia; potassium was elevated in the emergency room at 5.8, likely from ALMA and Bactrim, she received Kayexalate, hyperkalemia resolved. Bactrim is on hold. - At this time there is no acute indication for PACKING INSPECTOR, volume status acceptable, no hyperkalemia and acid-base acceptable. Urine output not documented, patient is incontinent. - Labs ordered for the morning. I did review with patient the importance of nephrology care and follow-up after hospitalization. 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 Hemoglobin A1c 13.9% on 01/08/2022. Baseline creatinine was around 2.7 mg/dL as of mid-January 2022. Her creatinine went as high as 4.30 mg/dL on February 25 and on 03/08/2022 creatinine 3.58 mg/dL. Patient has had recurrent ALMA episodes and serum creatinine has not leveled off back to baseline yet. She may have had some progression of CKD, still we will need to follow her renal function closely and I explained this importance with patient today. We will follow serum creatinine trajectory. Serologies have been ordered to complete CKD work-up. - UA negative for RBC, positive for occult blood 50, positive leukocyte esterase. Urine culture pending -GI consulted for coffee-ground emesis. Patient is on PPI drip, antiemetic as well as IV fluids. Hemoglobin was 8.1 on admission and is currently 8.2. Patient does have a history of iron deficiency anemia. Patient to undergo upper endoscopy today. Documented by User: Dr. Cora Gilbert MD 03/16/22 14:43 Objective Data Lab / Micro Data Result Diagrams: 03/16/22 06:17 03/16/22 06:17 Assessment & Plan Assessment/Plan (1) Acute kidney injury superimposed on chronic kidney disease: (2) Hyperkalemia: (3) Nausea & vomiting: (4) Chronic kidney disease (CKD) stage G4/A2, severely decreased glomerular filtration rate (GFR) between 15-29 mL/min/1.73 square meter and albuminuria creatinine ratio between 30-299 mg/g: (5) Coffee ground emesis: PLAN: Plan -ALMA on CKD, ALMA likely secondary to significant volume depletion with coffee-ground emesis. With IV fluids/volume expansion renal function has improved. Serum creatinine 5.02 mg/dL on admission and today her creatinine is 4.75 mg/dL. Patient has had multiple recurrent ALMA episodes over the past few months. Currently not on any DANIEL inhibitor, ARB or diuretics. -Hyperkalemia; potassium was elevated in the emergency room at 5.8, likely from ALMA and Bactrim, she received Kayexalate, hyperkalemia resolved. Bactrim is on hold. - At this time there is no acute indication for PACKING INSPECTOR, volume status acceptable, no hyperkalemia and acid-base acceptable. Urine output not documented, patient is incontinent. - Labs ordered for the morning. I did review with patient the importance of nephrology care and follow-up after hospitalization. 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 Hemoglobin A1c 13.9% on 01/08/2022. Baseline creatinine was around 2.7 mg/dL as of mid-January 2022. Her creatinine went as high as 4.30 mg/dL on February 25 and on 03/08/2022 creatinine 3.58 mg/dL. Patient has had recurrent ALMA episodes and serum creatinine has not leveled off back to baseline yet. She may have had some progression of CKD, still we will need to follow her renal function closely and I explained this importance with patient today. We will follow serum creatinine trajectory. Serologies have been ordered to complete CKD work-up. - UA negative for RBC, positive for occult blood 50, positive leukocyte esterase. Urine culture pending -GI consulted for coffee-ground emesis. Patient is on PPI drip, antiemetic as well as IV fluids. Hemoglobin was 8.1 on admission and is currently 8.2. Patient does have a history of iron deficiency anemia. Patient to undergo upper endoscopy today. Nephrology attending addendum: The patient seen and examined personally. Nurse practitioner's note reflects my medical decision making with my annotation below. Following for ALMA on CKD stage IV. The patient denies chest pain, shortness of breath, or nausea. Vital signs and examination as above. On my exam, there is no abdominal pain on palpation. Lungs are clear to auscultation anteriorly. Heart tones normal. Lower extremities are wrapped in Daniel bandage. Impression/Plan: The patient is a 61-year-old woman with past history of type 2 diabetes mellitus, heart failure with reduced ejection fraction (EF 45%), hypertension, hyperlipidemia, and chronic kidney disease stage IV. The patient was admitted to the hospital on 03/14/2022 with abdominal pain and GI bleed. Nephrology is following for ALMA on CKD along with hyperkalemia. Acute kidney injury on chronic kidney disease stage IV-V. The patient has known chronic kidney disease stage IV, likely due to diabetic kidney disease. Baseline serum creatinine is around 3.6 to 3.8 mg/dL. ALMA is likely due to volume depletion. Serum creatinine peaked at 5.08 mg/dL on 03/14/2022. Renal function has improved over the past 2 days. Serum creatinine is 4.75 mg/dL today. Renal function has essentially stabilized in the last 24 hours. There is no immediate need for kidney replacement therapy. However, although there is some improvement in renal function compared to on admission, her estimated GFR is still low at 10 mL/min. Will continue to monitor for any further improvement in renal function. Her baseline renal function is quite low with estimated GFR around 13 to 15 mL/min. Even if dialysis not started during this admission, she will need close follow-up as outpatient after discharge. Hyperkalemia. Potassium level peaked at 5.8 mmol/L on 03/14/2022. Hyperkalemia was likely due to ALMA on CKD along with concurrent use of trimethoprim/sulfamethoxazole. Upper GI bleed and reabsorption of blood through the GI tract can also contribute to hyperkalemia. The patient was treated with temporizing measure and sodium polystyrene sulfonate. Potassium level is better at 4.3 mmol/L today. We will continue to monitor potassium level. Hypertension. BP is running high on clonidine and diltiazem. However, there is no mason to getting her BP back to normal range. We can increase diltiazem further tomorrow since her heart rate is still above 80 beats per minutes. Nephrology plan will be discussed with Dr. Herzog.
[2022-03-16] MEDS: Ceftriaxone 1 GM/50 ML BAG IV (09:37)
--- NOTE | 2022-03-16 11:30 | EGD_PTH ---
PATIENT: LAYNE VINCENT LOC: [facility] U#:[id number] AGE/SX: 61/F ROOM: [facility] RE03/14/[address]: Dr. Julio C Herzog MD : 1960 BED: 1 DIS: 03/17/2022 SPEC #: [id number] RECD: 03/16/22 12:13 STATUS: LUISITO REQ #: [id number] RENEE: 03/16/22 11:[address]: Emil Castrejon DEPT: SURGICAL PATHOLOGY RECD BY: Anna Glasgow ENTERED: 03/16/22 13:18 SP TYPE: EGD BIOPSY OTHR DR: MD Dr. Cora Reece MD Dr. William Lago, MD Tissues: Esophagus, NOS Procedures: Special Stain Group II Special Stain Group I Surgery Specimen Level IV GMS Stain (control) Alcian Blue/PAS (control) Comments: @ Ordering doctor for SUIV edited from to @ by PEPITO at 03/16/22 1546 @ Submitting doctor edited from to @ by RGOOD at 03/16/22 1545 HEADER OPERATION: [place] PRE-OP DIAGNOSIS: Nausea and vomiting TISSUE SUBMITTED: Distal esophagus MICROSCOPIC DIAGNOSIS Distal esophagus, biopsy: Fragments of gastroesophageal mucosa with extensive ulceration, acute and chronic inflammation. Intestinal metaplasia (goblet cell metaplasia) not identified. See comment. SJ:mague 03/19/2022 COMMENT Alcian blue/PAS stain with matched control is used in the evaluation of the specimen. Special stain for fungi is negative for organisms; matched control is appropriate. MICROSCOPIC DESCRIPTION Slides are reviewed. GROSS DESCRIPTION Received in fixative is one container labeled with the patient's name and designated distal esophagus. The specimen consists of multiple irregular fragments of light blackwell soft tissue that in aggregate measure 2 x 0.5 x 0.1 cm. The specimen is totally submitted in one cassette. / AM:mague 03/16/2022 TC:2 CPT: 05338, 24281, 75533
--- NOTE | 2022-03-16 12:07 | OP.CCLET_ITS ---
03/16/2022 Dennys Serrano Re : Upper GI endoscopy procedure for Gladis Vilchisjessee Serrano This procedure was performed on Wednesday, March 16, 2022. My impressions and recommendations are as follows: Impressions : - LA Grade D erosive esophagitis. Biopsied. - Milagro-Awad tear. Injected. Treated with argon plasma coagulation (APC). - Normal stomach. - No gross lesions in the first portion of the duodenum. Recommendations : - Return to normal activities tomorrow. - Clear liquid diet today. - Continue present medications. - Await pathology results. - Repeat upper endoscopy in 3 months for surveillance. - Diflucan (fluconazole) 100 mg daily for 2 weeks. - Nystatin suspension 100,000 units PO QID for 1 week. - Reglan 5mg PO Q6hr - Protonix 40mg Q12 My findings are described in the full procedure note, which is enclosed. If I can be of further assistance, please feel free to contact me at . Sincerely, Emil Castrejon, 03/16/2022 12:07:23 PM This report has been signed electronically.
--- NOTE | 2022-03-16 12:07 | OP.EGD_ITS ---
Patient Name: Gladis Sprague Procedure Date: 03/16/2022 11:05 AM Date of : 1960 Age: 61 Procedure: Upper GI endoscopy Indications: Coffee-ground emesis Providers: Emil Castrejon DO Medicines: Monitored Anesthesia Care Patient Profile: This is a 61 year old female. Refer to note in patient chart for documentation of history and physical. Patient has symptoms of acute vomiting. Complications: No immediate complications. Procedure: Pre-Anesthesia Assessment: - Prior to the procedure, a History and Physical was performed, and patient medications and allergies were reviewed. The patient is competent. The risks and benefits of the procedure and the sedation options and risks were discussed with the patient. All questions were answered and informed consent was obtained. Patient identification and proposed procedure were verified by the physician. Mental Status Examination: alert and oriented. Airway Examination: normal oropharyngeal airway and neck mobility. Respiratory Examination: clear to auscultation. CV Examination: normal. Prophylactic Antibiotics: The patient does not require prophylactic antibiotics. Prior Anticoagulants: The patient has taken no previous anticoagulant or antiplatelet agents. ASA Grade Assessment: II - A patient with mild systemic disease. After reviewing the risks and benefits, the patient was deemed in satisfactory condition to undergo the procedure. The anesthesia plan was to use monitored anesthesia care (MAC). Immediately prior to administration of medications, the patient was re-assessed for adequacy to receive sedatives. The heart rate, respiratory rate, oxygen saturations, blood pressure, adequacy of pulmonary ventilation, and response to care were monitored throughout the procedure. The physical status of the patient was re-assessed after the procedure. After obtaining informed consent, the endoscope was passed under direct vision. Throughout the procedure, the patient's blood pressure, pulse, and oxygen saturations were monitored continuously. The gastroscope was introduced through the mouth, and advanced to the second part of duodenum. The upper GI endoscopy was accomplished without difficulty. The patient tolerated the procedure well. Scope In: 11:43:46 AM Scope Out: 11:54:28 AM Total Procedure Duration Time 0 hours 10 minutes 42 seconds Findings: LA Grade D (one or more mucosal breaks involving at least 75% of esophageal circumference) esophagitis with bleeding was found 34 to 40 cm from the incisors. Biopsies were taken with a cold forceps for histology. Verification of patient identification for the specimen was done. Estimated blood loss was minimal. A 8 mm bleeding Milagro-Awad tear with stigmata of recent bleeding was found. Area was successfully injected with 5 mL of a 1:10,000 solution of epinephrine for hemostasis. Coagulation for hemostasis using argon plasma at 0.4 liters/minute and 20 brown was successful. Estimated blood loss was minimal. The entire examined stomach was normal. No gross lesions were noted in the first portion of the duodenum. Impression: - LA Grade D erosive esophagitis. Biopsied. - Milagro-Awad tear. Injected. Treated with argon plasma coagulation (APC). - Normal stomach. - No gross lesions in the first portion of the duodenum. Recommendation: - Return to normal activities tomorrow. - Clear liquid diet today. - Continue present medications. - Await pathology results. - Repeat upper endoscopy in 3 months for surveillance. - Diflucan (fluconazole) 100 mg daily for 2 weeks. - Nystatin suspension 100,000 units PO QID for 1 week. - Reglan 5mg PO Q6hr - Protonix 40mg Q12 Procedure Code(s): --- Professional --- 69845, 59, Esophagogastroduodenoscopy, flexible, transoral; with control of bleeding, any method 38406, 51, Esophagogastroduodenoscopy, flexible, transoral; with biopsy, single or multiple CPT copyright 2017 [employer]. All rights reserved. The codes documented in this report are preliminary and upon city collector review may be revised to meet current compliance requirements. Emil Castrejon DO 03/16/2022 12:07:23 PM This report has been signed electronically. Number of Addenda: 0 Note Initiated On: 03/16/2022 11:05 AM
[2022-03-16] MEDS: 0.9% Saline Lock 10 ML Syringe IV ×3 (13:10→21:17)
[2022-03-16] MEDS: cloNIDine HCl 0.1 MG Tablet 0.3 MG PO ×2 (13:11→17:09)
[2022-03-16] MEDS: Fluconazole 100 MG Tablet PO (13:11)
[2022-03-16] MEDS: dilTIAZem CD 180 MG Capsule PO (13:12)
[2022-03-16] MEDS: Pregabalin 50 MG Capsule PO ×2 (13:13→21:17)
[2022-03-16] MEDS: NYSTATIN 500,000 UNIT/5 ML UDC 100000 UNIT PO ×3 (13:24→21:17)
[2022-03-16 14:21] LABS: Bedside Glucose 87 mg/dL (74-106)
[2022-03-16 14:21] LABS: Bedside Glucose 55 mg/dL (74-106)
--- NOTE | 2022-03-16 15:10 | CASEMGMT ---
Addendum entered by Jennifer Sidhu 03/16/22 16:08: A list of SNF providers including quality and resource use data and consistent with the patient?s preferred geographical region, medical needs, and insurance network were provided from the [employer] Guide. Patient to review list and CM/SW to follow-up Original Note: PRIYA CM in to discuss discharge planning with patient. Patient was requiring assistance of 2 for transfers. Patient is wanting to go home with resumption of HHC with [facility] but is willing to consider going to SNF. Patient is wanting to discuss planning with her fiance. Patient is requesting list of SNF agencies to review. SW updated. Green sheet placed on chart if able to discharge home over the weekend.
[2022-03-16] MEDS: Metoclopramide 10 MG/2 ML Vial 5 MG IV ×2 (17:10→23:57)
[2022-03-16 19:01] LABS: Bedside Glucose 66 mg/dL (74-106)
[2022-03-16 19:01] LABS: Bedside Glucose 147 mg/dL (74-106)
[2022-03-16] MEDS: Sertraline 50 MG Tablet PO (21:17)
[2022-03-16] MEDS: Aspirin 81 MG TAB.CHEW PO (21:17)
[2022-03-16] MEDS: Ferrous Sulfate 325 MG Tablet PO (21:18)
[2022-03-16] MEDS: Atorvastatin Calcium 40 MG Tablet PO (21:18)
[2022-03-16 22:35] LABS: Bedside Glucose 159 mg/dL (74-106)
[2022-03-17] VITALS (9 sets, daily range): BP systolic 156–172; BP diastolic 68–81; PULSE 78–91; RESP 16–18; TEMP 36.6–37.3; O2SAT 85–97
[2022-03-17 00:31] LABS: Bedside Glucose 168 mg/dL (74-106)
[2022-03-17] MEDS: Ondansetron ODT 4 MG Tablet PO ×2 (01:06→10:16)
[2022-03-17] MEDS: 0.9% Saline Lock 10 ML Syringe IV (01:06)
--- NOTE | 2022-03-17 03:42 | NURSING ---
Per pt diabetic ulcers on anshul legs, old wound dressing removed, cleansed wounds with saline. Changed dressings with adaptic, kerlix and gabriela wrapped.
[2022-03-17] MEDS: Metoclopramide 10 MG/2 ML Vial 5 MG IV (06:27)
[2022-03-17] MEDS: 0.9% Normal Saline 1,000 ML 75 ML IV (06:27)
[2022-03-17 07:25] LABS: Bedside Glucose 192 mg/dL (74-106)
--- NOTE | 2022-03-17 07:56 | PCM.PN.HOSP ---
Subjective Subjective Patient underwent EGD today prior by Dr. Castrejon results are as below - LA Grade D erosive esophagitis.? Biopsied. - Milagro-Awad tear.? Injected.? Treated with argon plasma coagulation (APC). - Normal stomach. - No gross lesions in the first portion of the duodenum. Objective Data Objective Data Vital Signs: Vital Signs Temp Pulse Resp BP Pulse Ox O2 Del Method O2 Flow Rate 98.6 F 88 18 172/81 H 94 Nasal Cannula 3 03/17/22 03:57 03/17/22 03:57 03/17/22 03:57 03/17/22 03:57 03/17/22 03:57 03/17/22 03:57 03/17/22 03:57 Oxygen Flow Rate (L/min) 3 Oxygen Delivery Method Nasal Cannula Weight: 85.2 kg Body Mass Index (BMI) 31.7 Intake & Output: Intake and Output for Last 24 Hours 03/15/22 03/16/22 03/17/22 23:59 23:59 23:59 Intake Total 1876.25 / 1876.25 2475.5 / 2475.5 1072.92 / 1072.92 Output Total 400 / 400 1000 / 1000 350 / 350 Balance 1476.25 / 1476.25 1475.5 / 1475.5 722.92 / 722.92 Lab / Micro Data Result Diagrams: 03/17/22 07:51 03/17/22 07:51 Labs: Laboratory Results - last 24 hr 03/16/22 06:17: Digoxin 0.09 L 03/16/22 13:23: POC Glucose 55 L 03/16/22 14:01: POC Glucose 87 03/16/22 17:08: POC Glucose 66 L 03/16/22 18:05: POC Glucose 147 H 03/16/22 21:16: POC Glucose 159 H 03/16/22 23:56: POC Glucose 168 H 03/17/22 06:25: POC Glucose 192 H Physical Exam Narrative GENERAL: Cooperative HEENT: Atraumatic; normocephalic EYES; Anicteric, Normal Conjunctiva NECK; supple, normal thyroid, RESPIRATORY: Diminished to auscultation CARDIOVASCULAR: Regular S1 S2, GI: soft, normoactive bowel sounds, : No Renal angle tenderness; EXTREMITIES: No edema, no clubbing, MUSCULOSKELETAL: no muscle wasting NEURO: Awake; no lateralizing signs. SKIN: No Rash PSYCH; Flat affect Assessment & Plan Assessment/Plan (1) Hyperkalemia: (2) Acute kidney injury superimposed on chronic kidney disease: PLAN: Plan Patient is a 61-year-old lady presented with coffee-ground emesis, abdominal pain, found to have acute kidney injury superimposed on chronic kidney disease as well as hyperkalemia 1. Coffee-ground emesis ? Spectated secondary to gastritis. Patient started on Protonix drip admitted to monitored bed, patient being monitored with every 6 H&H, consult was placed to GI ? 03/15/2022; patient has drop in her hemoglobin level. Did continue with treatment as described above with consultation placed to GI ? 03/16/2022 Patient was seen in consultation by Dr. Castrejon with GI plans for patient to undergo endoscopic evaluation this a.m. -03/17/2022 Patient underwent EGD today prior by Dr. Castrejon results are as below - LA Grade D erosive esophagitis.? Biopsied. - Milagro-Awad tear.? Injected.? Treated with argon plasma coagulation (APC). - Normal stomach. - No gross lesions in the first portion of the duodenum. -Please on PPI 2. Anemia ? Secondary to acute blood loss anemia monitoring H&H with plans to transfuse if hemoglobin falls below 7 3. Acute kidney injury ? Superimposed on chronic kidney disease stage V. Discharge creatinine was 3.67 had worsened to 5.02 patient started on IV fluids consult placed to nephrology ? Case was discussed with Dr. Najera with nephrology plans for patient to follow-up as outpatient patient is eventually going to need dialysis access with initiation of dialysis as outpatient 4. Hyperkalemia Secondary to above treatment initiated in the ED. Response to therapy being monitored with repeat BMP 5. Diabetes mellitus type 2 ? Patient presented with hyperglycemia her oral hypoglycemic agent held please on Accu-Cheks before meals and at bedtime with sliding scale coverage 6. Essential hypertension ? Patient blood pressure control not optimal did continue with home meds also added hydralazine as needed to keep systolic blood pressure less than 140 7. Diabetic polyneuropathy ? Patient is on Lyrica continue 8. Dyslipidemia -Patient is on statin therapy, continued at home dose 9. DVT prophylaxis Avoided chemoprophylaxis in view of patient's presentation. Did initiate SCDs 10. Obstipation -Treated symptomatically Charges/Coding Visit Charges Inpatient E&M: 66192 Subs Hosp L2
[2022-03-17 08:08] LABS: Absolute Lymphocyte Count 0.68 X10^3/uL (0.83-4.51); Absolute Neutrophil Count 11.4 X10^3/uL (2.0-7.7); Basophil# 0.07 X10^3/uL; Basophil% 0.5 % (0-1); Eosinophil# 0.38 X10^3/uL; Eosinophils% 2.9 % (0-5); Hemoglobin 8.1 g/dL (12.0-15.0); Lymphocyte # 0.68 X10^3/ul (0.83-4.51); Lymphocyte % 5.2 % (19-41); Mean Corp Hgb Conc 31.2 g/dL (32-36); Mean Corpuscular Hgb 26.8 pg (27.0-32.0); Mean Corpuscular Volume 86.1 fL (81-99); Mean Platelet Vol. 10.3 fl (6.2-12.0); Monocyte# 0.42 X10^3/uL; Monocyte% 3.2 % (0-10); NRBC Flagged by Analyzer 0 % (0-5); Neutrophil # 11.39 X10^3/uL (2.7-7.7); Neutrophil % 87.7 % (47-70); Platelet Count 244 K/mm3 (150-450); RBC Distribution Width CV 16.6 % (11.6-14.6); RBC Distribution Width SD 51.8 fl (35.1-43.9); Red Blood Count 3.02 M/mm3 (4.2-5.4)
[2022-03-17 08:33] LABS: Anion Gap 9 (5-15); BUN 50 mg/dL (7-18); BUN/Creat Ratio 10.8 RATIO (10-20); Calcium,Total 8.3 mg/dL (8.5-10.1); Chloride 112 mmol/L (98-107); Creatinine, Serum 4.62 mg/dL (0.55-1.02); EST Glomerular Filtration Rate 10 mL/min (>60); Est Glom Filt Rate - Afr Amer 13 mL/min (>60); Glucose 212 mg/dL (74-106); Sodium Level 139 mmol/L (136-145)
--- NOTE | 2022-03-17 10:04 | PCM.DC.SUM ---
Providers Date of Admission: 03/14/22 Date of Discharge: 03/17/22 Primary Care Physician: Dr. Dennys Baez MD Consultations 03/15/22 08:52 Consult: Nephrology Routine Consulting Provider: Cora Gilbert Reason for Consult: inés EMERGENT Consult: No Notified: Yes Date Notified: 03/15/22 Time Notified: 08:52 Method of Notification: Verbal 03/15/22 10:08 Consult: Gastroenterology Routine Consulting Provider: [facility] Reason for Consult: GI Bleed EMERGENT Consult: No Notified: Yes Date Notified: 03/15/22 Time Notified: 10:08 Method of Notification: Text 03/17/22 04:34 Consult: Onc/Wound/grinder and honer operator automatic Routine Comment: Reason For Visit: HYPERKALEMIA Diagnosis Discharge Diagnosis (1) Hyperkalemia: Status: Acute Code(s): E87.5 - Hyperkalemia (2) Acute kidney injury superimposed on chronic kidney disease: Status: Chronic Code(s): N17.9 - Acute kidney failure, unspecified; N18.9 - Chronic kidney disease, unspecified Plan Patient is a 61-year-old lady presented with coffee-ground emesis, abdominal pain, found to have acute kidney injury superimposed on chronic kidney disease as well as hyperkalemia 1. Coffee-ground emesis ? Spectated secondary to gastritis. Patient started on Protonix drip admitted to monitored bed, patient being monitored with every 6 H&H, consult was placed to GI ? 03/15/2022; patient has drop in her hemoglobin level. Did continue with treatment as described above with consultation placed to GI ? 03/16/2022 Patient was seen in consultation by Dr. Castrejon with GI plans for patient to undergo endoscopic evaluation this a.m. -03/17/2022 Patient underwent EGD today prior by Dr. Castrejon results are as below - LA Grade D erosive esophagitis.? Biopsied. - Milagro-Awad tear.? Injected.? Treated with argon plasma coagulation (APC). - Normal stomach. - No gross lesions in the first portion of the duodenum. -Please on PPI 2. Anemia ? Secondary to acute blood loss anemia monitoring H&H with plans to transfuse if hemoglobin falls below 7 3. Acute kidney injury ? Superimposed on chronic kidney disease stage V. Discharge creatinine was 3.67 had worsened to 5.02 patient started on IV fluids consult placed to nephrology ? Case was discussed with Dr. Najera with nephrology plans for patient to follow-up as outpatient patient is eventually going to need dialysis access with initiation of dialysis as outpatient 4. Hyperkalemia Secondary to above treatment initiated in the ED. Response to therapy being monitored with repeat BMP 5. Diabetes mellitus type 2 ? Patient presented with hyperglycemia her oral hypoglycemic agent held please on Accu-Cheks before meals and at bedtime with sliding scale coverage 6. Essential hypertension ? Patient blood pressure control not optimal did continue with home meds also added hydralazine as needed to keep systolic blood pressure less than 140 7. Diabetic polyneuropathy ? Patient is on Lyrica continue 8. Dyslipidemia -Patient is on statin therapy, continued at home dose 9. DVT prophylaxis Avoided chemoprophylaxis in view of patient's presentation. Did initiate SCDs 10. Obstipation -Treated symptomatically Medications at Discharge Home Medications diltiazem HCl 180 mg capsule,extended release 24 hr 180 mg PO DAILY blood pressure 12/17/18 aspirin 81 mg chewable tablet 81 mg PO QHS HEART HEALTH 12/15/19 atorvastatin 40 mg tablet 40 mg PO QHS CHOLESTEROL 12/15/19 pantoprazole 40 mg tablet,delayed release 40 mg PO DAILY GERD 12/15/19 clonidine HCl 0.3 mg tablet 0.3 mg PO TID BLOOD PRESSURE 01/06/22 insulin lispro 100 unit/mL subcutaneous pen (Humalog KwikPen (U-100) Insulin) 8 unit subcut TIDCM diabetes 01/06/22 sertraline 50 mg tablet 50 mg PO QHS DEPRESSION 01/06/22 tramadol 50 mg tablet 50 mg PO BID PRN Pain 01/06/22 ferrous sulfate 325 mg (65 mg iron) tablet (FeroSul) 325 mg PO QHS SUPPLEMENT 02/13/22 polyethylene glycol 3350 17 gram oral powder packet 17 g PO DAILY PRN Constipation 02/13/22 pregabalin 75 mg capsule 75 mg PO BID PAIN 02/25/22 insulin glargine-yfgn 100 unit/mL (3 mL) subcutaneous pen 25 unit (0.25 mL) subcut QHS DIABETES #15 mL 02/28/22 cephalexin 500 mg capsule 500 mg PO Q6 INFECTION 03/14/22 cefdinir 300 mg capsule 300 mg PO BID #10 caps 03/17/22 Hospital Course Summary of Care Provided Minutes Spent on Discharge: 35 Physical Exam Narrative GENERAL: Cooperative HEENT: Atraumatic; normocephalic EYES; Anicteric, Normal Conjunctiva NECK; supple, normal thyroid, RESPIRATORY: Diminished to auscultation CARDIOVASCULAR: Regular S1 S2, GI: soft, normoactive bowel sounds, : No Renal angle tenderness; EXTREMITIES: No edema, no clubbing, MUSCULOSKELETAL: no muscle wasting NEURO: Awake; no lateralizing signs. SKIN: No Rash PSYCH; Flat affect Weight / BMI Weight Weight: 85.2 kg Body Mass Index (BMI) 31.7 ABG / Lab / Microbiology Data Result Diagrams: 03/17/22 07:51 03/17/22 07:51 Laboratory: Laboratory Results - last 24 hr 03/16/22 13:23: POC Glucose 55 L 03/16/22 14:01: POC Glucose 87 03/16/22 17:08: POC Glucose 66 L 03/16/22 18:05: POC Glucose 147 H 03/16/22 21:16: POC Glucose 159 H 03/16/22 23:56: POC Glucose 168 H 03/17/22 06:25: POC Glucose 192 H 03/17/22 07:51: WBC 13.0 H, RBC 3.02 L, Hgb 8.1 L, Hct 26.0 L, MCV 86.1, MCH 26.8 L, MCHC 31.2 L, RDW Std Deviation 51.8 H, RDW Coeff of Chris 16.6 H, Plt Count 244, MPV 10.3, Immature Gran % (Auto) 0.500, Neut % (Auto) 87.7 H, Lymph % (Auto) 5.2 L, [place] % (Auto) 3.2, Eos % (Auto) 2.9, Baso % (Auto) 0.5, Absolute Neuts (auto) 11.4 H, Absolute Lymphs (auto) 0.68 L, Nucleated RBC % 0 03/17/22 07:51: Sodium 139, Potassium 5.0, Chloride 112 H, Carbon Dioxide 18.0 L, Anion Gap 9, BUN 50 H, Creatinine 4.62 H, Estim Creat Clear Calc 11.80, Est GFR (MDRD) Af Amer 13 L, Est GFR (MDRD) Non-Af 10 L, BUN/Creatinine Ratio 10.8, Glucose 212 H, Calcium 8.3 L D/C Instructions Discharge Diet: Renal Diet Discharge Activity: Return to Normal Activity Call your doctor if you observe: Fever of 101 or Higher, Shortness of breath, Fainting spells and Chest pain Meaningful Use Info Meaningful Use Diagnoses (Choose all that apply): None applicable Discharge Plan Admission Admit Date/Time: 03/14/22 15:02 Attending Provider: Julio C Herzog Primary Care Provider: Dennys Baez Consulting Providers: Cora Gilbert Discharge Orders/Prescriptions Prescriptions: New cefdinir 300 mg capsule 300 mg PO BID Qty: 10 0RF Continued diltiazem HCl 180 MG capsule 180 mg PO DAILY Label Comments: PT UNSURE OF STRENGTH HAS BEEN ON THE 180. PER PHARMACY DR BAEZ'S OFFICE CALLED IN A NEW SCRIPT ON 03/06/22. pantoprazole 40 MG tablet 40 mg PO DAILY atorvastatin 40 MG tablet 40 mg PO QHS aspirin 81 MG tablet,chewable 81 mg PO QHS clonidine HCl 0.3 MG tablet 0.3 mg PO TID insulin lispro [Humalog KwikPen Insulin] 100 unit/mL insulin pen 8 unit subcut TIDCM tramadol 50 mg tablet 50 mg PO BID PRN (Reason: Pain) sertraline 50 mg tablet 50 mg PO QHS ferrous sulfate [FeroSul] 325 mg (65 mg iron) tablet 325 mg PO QHS polyethylene glycol 3350 17 gram powder in packet 17 g PO DAILY PRN (Reason: Constipation) pregabalin 75 mg capsule 75 mg PO BID insulin glargine-yfgn 100 unit/mL (3 mL) insulin pen 25 unit subcut QHS Qty: 15 0RF cephalexin 500 mg capsule 500 mg PO Q6 Discontinued sulfamethoxazole-trimethoprim [sulfamethoxazole-trimethoprim] 800-160 mg tablet 1 tab PO BID Referrals / Follow Up: Cora Gilbert MD [Med Staff - Consulting] - Within 2 Weeks Dennys Baez MD [Primary Care Provider] - Within 1 Week Disposition Disposition (needs filled in before D/C Order can be placed): Home, Self Care Charges/Coding Visit Charges Inpatient E&M: 09628 Disch Hosp
[2022-03-17] MEDS: cloNIDine HCl 0.1 MG Tablet 0.3 MG PO ×2 (10:08→12:26)
[2022-03-17] MEDS: NYSTATIN 500,000 UNIT/5 ML UDC 100000 UNIT PO (10:09)
[2022-03-17] MEDS: dilTIAZem CD 180 MG Capsule PO (10:10)
[2022-03-17] MEDS: Fluconazole 100 MG Tablet PO (10:10)
[2022-03-17] MEDS: Pregabalin 50 MG Capsule PO (10:16)
[2022-03-17] MEDS: Insulin Glargine-YFGN 100 UNIT/ML Pen 15 UNIT SC (10:26)
[2022-03-17] MEDS: Ceftriaxone 1 GM/50 ML BAG IV (10:26)
[2022-03-17 10:50] LABS: Bedside Glucose 271 mg/dL (74-106)
[2022-03-17] MEDS: Insulin Lispro 100 UNIT/ML INSULN.PEN SC (12:25)
[2022-03-17 14:10] LABS: Bedside Glucose 342 mg/dL (74-106)
--- NOTE | 2022-03-17 15:17 | PCM.PN.REN ---
Subjective Subjective No new complaints. Still has moderate amount of lower extremity edema. Breathing is good on nasal cannula. No hematemesis. No urinary complaints. Objective Data Objective Data Vital Signs: Vital Signs Temp Pulse Resp BP Pulse Ox O2 Del Method O2 Flow Rate 97.8 F 78 16 156/75 H 96 Nasal Cannula 3 03/17/22 12:22 03/17/22 12:22 03/17/22 12:22 03/17/22 12:22 03/17/22 12:03/17/22 12:03/17/22 12:22 Oxygen Flow Rate (L/min) [ 3 AMBULATING with Oxygen #1] Oxygen Flow Rate (L/min) [At 3 REST with Oxygen] Oxygen Flow Rate (L/min) [At 2 REST on Room Air] Oxygen Flow Rate (L/min) 3 Oxygen Delivery Method Nasal Cannula Weight: 85.2 kg Body Mass Index (BMI) 31.7 Intake & Output: Intake and Output for Last 24 Hours 03/15/22 03/16/22 03/17/22 23:59 23:59 23:59 Intake Total 1876.25 / 1876.25 2475.5 / 2475.5 1993.50 / 1992.50 Output Total 400 / 400 1000 / 1000 350 / 350 Balance 1476.25 / 1476.25 1475.5 / 1475.5 1643.50 / 1643.50 Lab / Micro Data Result Diagrams: 03/17/22 07:51 03/17/22 07:51 Labs: Laboratory Results - last 24 hr 03/16/22 17:08: POC Glucose 66 L 03/16/22 18:05: POC Glucose 147 H 03/16/22 21:16: POC Glucose 159 H 03/16/22 23:56: POC Glucose 168 H 03/17/22 06:25: POC Glucose 192 H 03/17/22 07:51: WBC 13.0 H, RBC 3.02 L, Hgb 8.1 L, Hct 26.0 L, MCV 86.1, MCH 26.8 L, MCHC 31.2 L, RDW Std Deviation 51.8 H, RDW Coeff of Chris 16.6 H, Plt Count 244, MPV 10.3, Immature Gran % (Auto) 0.500, Neut % (Auto) 87.7 H, Lymph % (Auto) 5.2 L, [place] % (Auto) 3.2, Eos % (Auto) 2.9, Baso % (Auto) 0.5, Absolute Neuts (auto) 11.4 H, Absolute Lymphs (auto) 0.68 L, Nucleated RBC % 0 03/17/22 07:51: Sodium 139, Potassium 5.0, Chloride 112 H, Carbon Dioxide 18.0 L, Anion Gap 9, BUN 50 H, Creatinine 4.62 H, Estim Creat Clear Calc 11.80, Est GFR (MDRD) Af Amer 13 L, Est GFR (MDRD) Non-Af 10 L, BUN/Creatinine Ratio 10.8, Glucose 212 H, Calcium 8.3 L 03/17/22 10:21: POC Glucose 271 H 03/17/22 12:21: POC Glucose 342 H Micro: Microbiology 03/15/22 14:20 Urine, Random Urine Culture - Preliminary Culture exhibits no growth. Physical Exam Narrative Alert and oriented x3, no apparent distress. S1, S2, RRR Lung sounds clear anteriorly. No wheezes, rhonchi or rales noted. Diminished breath sounds posterior bases Abdomen soft, nontender Bilateral legs Daniel wrap intact from feet to knees. No pitting edema above knees Assessment & Plan Assessment/Plan (1) Acute kidney injury superimposed on chronic kidney disease: (2) Hyperkalemia: (3) Nausea & vomiting: (4) Chronic kidney disease (CKD) stage G4/A2, severely decreased glomerular filtration rate (GFR) between 15-29 mL/min/1.73 square meter and albuminuria creatinine ratio between 30-299 mg/g: (5) Coffee ground emesis: PLAN: Plan -ALMA on CKD, ALMA likely secondary to significant volume depletion with coffee-ground emesis. 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 Hemoglobin A1c 13.9% on 01/08/2022. Baseline creatinine was around 2.7 mg/dL as of mid-January 2022. Her creatinine went as high as 4.30 mg/dL on February 25 and on 03/08/2022 creatinine 3.58 mg/dL. Patient has had recurrent ALMA episode and serum creatinine has not leveled off back to baseline yet. - UA negative for RBC, positive for occult blood, positive leukocyte esterase. urine culture. -GI consulted for coffee-ground emesis. Patient is on PPI Plan is to discharge home today. Will arrange close follow-up. Will likely need to start dialysis within the next few weeks. Patient understands and is agreeable.
[2022-03-19 16:08] LABS: Cytoplasmic Ab (C-ANCA) 1:20 titer (Neg:<1:20); Immunoglobulin A 194 mg/dL (87-352); Immunoglobulin G 1112 mg/dL (586-1602); Immunoglobulin M 30 mg/dL (26-217)
[2022-03-19 19:00] LABS: Anti-dsDNA Ab <1 IU/mL (0-9)
[2022-03-19 19:08] LABS: Complement C3 109 mg/dL (82-167); Perinuclear Ab (P-ANCA) <1:20 titer (Neg:<1:20)
[2022-03-20 11:51] LABS: Anti-Glomerular Basement Memb < 0.2 units (0.0-0.9)
== END 2022-03-17 16:21 | disposition home or self-care (01) | DRG 392 ==
LOC: ED 14:39 → PCU 15:24
PROVIDERS: Anesthesiology; Internal Medicine; Internal Medicine Gastroenterology; Nurse Practitioner Adult Health; Admitting Provider Internal Medicine; Emergency Provider Emergency Medicine; PCP Family Medicine; Visit Provider Internal Medicine
PROC: 0DJ08ZZ Inspection of Upper Intestinal Tract, Via Natural or Artificial Opening Endoscopic (ICD-10-PCS; CPT 43235; principal; 2022-03-16 11:25)
DX: K29.70 Gastritis, unspecified, without bleeding (principal); D62 Acute posthemorrhagic anemia; I13.2 Hypertensive heart and chronic kidney disease with heart failure and with stage 5 chronic kidney disease, or end stage renal disease; N17.9 Acute kidney failure, unspecified; N18.5 Chronic kidney disease, stage 5; I50.22 Chronic systolic (congestive) heart failure; E11.42 Type 2 diabetes mellitus with diabetic polyneuropathy; E11.21 Type 2 diabetes mellitus with diabetic nephropathy; E11.22 Type 2 diabetes mellitus with diabetic chronic kidney disease; Z79.4 Long term (current) use of insulin; E11.69 Type 2 diabetes mellitus with other specified complication; E11.65 Type 2 diabetes mellitus with hyperglycemia; F07.81 Postconcussional syndrome; E87.5 Hyperkalemia; E78.5 Hyperlipidemia, unspecified; E78.00 Pure hypercholesterolemia, unspecified; K21.00 Gastro-esophageal reflux disease with esophagitis, without bleeding; K59.00 Constipation, unspecified; Z79.82 Long term (current) use of aspirin; Z82.5 Family history of asthma and other chronic lower respiratory diseases; R09.02 Hypoxemia; G89.4 Chronic pain syndrome; Z66 Do not resuscitate
CPT/HCPCS: 36415; 71045; 74176; 80048; 80053; 80162; 81001; 82140; 82248; 82784; 82803; 82962; 83036; 83520; 83605; 83690; 83735; 83880; 84100; 85025; 85610; 85730; 86160; 86225; 86256; 86334; 86850; 86900; 86901; 86920; 86922; 87086; 88305; 88312; 88313; 93005; 97110; 97162; 97530; 99251; 99285; J7030; P9016; A4216; G0463; J0610; J2405; J3490

== ENCOUNTER 2022-03-21 15:31 | Emergency (ER) | payer MEDICARE, MEDICAID, SELFPAY ==
[2022-03-21] VITALS (8 sets, daily range): BP systolic 178–195; BP diastolic 83–108; PULSE 81–91; RESP 15–18; TEMP 36.7; O2SAT 93–99; BMI 31.6
--- NOTE | 2022-03-21 15:42 | EKG12_ITS ---
Test Reason : HYPERTENSION Blood Pressure : / mmHG Vent. Rate : 080 BPM Atrial Rate : 080 BPM P-R Int : 146 ms QRS Dur : 090 ms QT Int : 386 ms P-R-T Axes : 060 047 070 degrees QTc Int : 445 ms Normal sinus rhythm Normal ECG Confirmed by YUMIKO AMEZCUA, TOMAS ([id number]), editor at large RAFI DOMINGO ([id number]) on 03/22/2022 10:39:26 AM Referred By: Confirmed By:TOMAS CALDERON MD
--- NOTE | 2022-03-21 15:43 | EDS_ITS ---
HPI History of Present Illness Chief Complaint: Hypertension Narrative Narrative: 61-year-old female past medical history of CHF, chronic kidney disease, hypertension, was recently discharged from the hospital 4 days ago. At that time, she had nausea and vomiting with coffee-ground emesis which has resolved. She had acute on chronic kidney injury, and elevated blood pressures. She states that she was trying to get set up for home health care and her blood pressure has been elevated recently. She denies any chest pain or shortness of breath, but the home health nurse and her primary care physician thought that her systolic blood pressure was elevated to high and told her to come to the emergency department for better control of her blood pressure. She states that her blood pressure is never really been controlled even since she was discharged from the hospital. [facility] Medical History Anemia Cardiology follow-up encounter Chronic pain syndrome CKD (chronic kidney disease) stage 4, GFR 15-29 ml/min Closed intertrochanteric fracture of left hip Diabetes Diabetes mellitus with hyperglycemia Dietary restriction Essential hypertension Excessive bleeding Fall Gastric reflux High cholesterol History of echocardiogram History of edema History of orthostatic hypotension History of stress test HLD (hyperlipidemia) HTN (hypertension) Hx of orthostatic hypotension Injury of head and neck Insulin dependent diabetes mellitus Low iron Malnutrition Migraine headache Migraine without aura Non-smoker Post-concussion syndrome Symptomatic anemia Syncope Transfusion of blood during current hospitalisation Type II diabetes mellitus Vertigo Vomiting Wears glasses Home Medications diltiazem HCl 180 mg capsule,extended release 24 hr 180 mg PO DAILY blood pressure 12/17/18 [History Last Taken 03/13/22] aspirin 81 mg chewable tablet 81 mg PO QHS HEART HEALTH 12/15/19 [History Last Taken 03/13/22] atorvastatin 40 mg tablet 40 mg PO QHS CHOLESTEROL 12/15/19 [History Last Taken 03/13/22] pantoprazole 40 mg tablet,delayed release 40 mg PO DAILY GERD 12/15/19 [History Last Taken 03/13/22] clonidine HCl 0.3 mg tablet 0.3 mg PO TID BLOOD PRESSURE 01/06/22 [History Last Taken 03/13/22] insulin lispro 100 unit/mL subcutaneous pen (Humalog KwikPen (U-100) Insulin) 8 unit subcut TIDCM diabetes 01/06/22 [History Last Taken 03/13/22] sertraline 50 mg tablet 50 mg PO QHS DEPRESSION 01/06/22 [History Last Taken 03/13/22] tramadol 50 mg tablet 50 mg PO BID PRN Pain 01/06/22 [History Last Taken 2] ferrous sulfate 325 mg (65 mg iron) tablet (FeroSul) 325 mg PO QHS SUPPLEMENT 02/13/22 [History Last Taken 03/13/22] polyethylene glycol 3350 17 gram oral powder packet 17 g PO DAILY PRN Constipati on 02/13/22 [History Last Taken 03/13/22] pregabalin 75 mg capsule 75 mg PO BID PAIN 02/25/22 [History Last Taken 03/13/22] insulin glargine-yfgn 100 unit/mL (3 mL) subcutaneous pen 25 unit (0.25 mL) subcut QHS DIABETES #15 mL 02/28/22 [Rx Last Taken 03/13/22] hydralazine 25 mg tablet 25 mg PO TID #60 tabs 03/21/22 [Rx Last Taken Unknown] Allergy/AdvReac Type Severity Reaction Status Date / Time metformin AdvReac Diarrhea Verified 03/21/22 15:37 Family History Mother Hypertension Father Cancer lymphoma, leukemia Emphysema of lung Grandmother Diabetes Surgical History History of cholecystectomy History of cholecystectomy History of esophagogastroduodenoscopy (EGD) History of mandibular surgery Hx of colonoscopy Social History household members: significant other Smoking Status: Never smoker alcohol intake: never substance use type: does not use ROS ROS ED ROS Narrative Constitutional: No fever, no chills. Uncontrolled blood pressure. HEENT: No sore throat. No neck pain. No loss of vision. No rhinorrhea. Cardiovascular: No chest pain. No palpitations. No pedal edema. Respiratory: No cough, no shortness of breath. Abdominal: No abdominal pain. No nausea. No vomiting. Genitourinary: No dysuria. No hematuria. Musculoskeletal: No myalgias. No arthralgias. Neurologic: No headaches. No dizziness. No lightheadedness. Skin: No rash. No change in color. Psychiatric: No depression. No anxiety. EXAM Physical Exam Narrative Exam Narrative: Afebrile. Vital signs noted. HEENT: Normocephalic. Atraumatic. PERRL, EOMI. Neck soft and supple. No point tenderness or step off. Cardiovascular: Regular rate and rhythm. No murmurs, rubs, or gallops appreciated. Respiratory: No tachypnea. Lungs clear to auscultation bilaterally. Gastrointestinal: Abdomen soft, nontender, with normoactive bowel sounds. No rebound or guarding. Neurological: Awake. Alert. Nonfocal, nonlateralizing. Skin: No rash. Normal color. No pallor. Musculoskeletal: No pedal edema. Full range of motion extremities. Const Vital Signs: 03/21/22 15:35 03/21/22 15:39 03/21/22 15:41 Temperature 98.1 F Temperature Source Oral Pulse Rate 81 Respiratory Rate 18 Respiratory Pattern Normal Blood Pressure 195/108 H 195/99 H Blood Pressure Mean 137 131 Pulse Ox 99 Oxygen Delivery Method Nasal Cannula Oxygen Flow Rate (L/min) 3 03/21/22 16:31 03/21/22 16:05 Temperature Temperature Source Pulse Rate 83 Respiratory Rate 16 Respiratory Pattern Blood Pressure 178/83 H 186/85 H Blood Pressure Mean 114 118 Pulse Ox 93 Oxygen Delivery Method Nasal Cannula Oxygen Flow Rate (L/min) 3 MDM MDM MDM Narrative Medical decision making narrative: Patient was placed on a cardiac care nurse. Her pressure is 195 systolic currently. She was administered 10 mg of hydralazine. EKG interpreted by myself demonstrates normal sinus rhythm at 80 bpm without ectopy or acute ST changes. No STEMI. No significant change from previous. CBC is grossly normal with a normal white count of 5.3, hemoglobin stable at 9.9 however, and hematocrit 30.0. Platelet count normal at 233. Creatinine is elevated but seems to be at her baseline of 4.64. BUN of 54. This is consistent with her stage III kidney disease. After hydralazine, her blood pressure is in the 170s systolic, and currently 166. She remains asymptomatic with it. At this point in time, I discussed patient with Dr. Pollock for Dr. Serrano. He would like the patient started on hydralazine 25 mg 3 times daily. He will have the office follow-up with the patient early next week after the holiday. I feel she be discharged safely home with follow-up. Return instructions to the emergency department were reviewed. Disposition is discharged home in stable condition. Lab Data Attestation: I reviewed the patient's lab results. Labs: Laboratory Results - last 24 hr 03/21/22 03/21/22 15:55 15:55 WBC 5.3 RBC 3.37 L Hgb 9.0 L Hct 30.0 L MCV 89.0 MCH 26.7 L MCHC 30.0 L RDW Std Deviation 51.1 H RDW Coeff of Chris 15.6 H Plt Count 233 MPV 10.2 Immature Gran % (Auto) 0.600 Neut % (Auto) 68.6 Lymph % (Auto) 16.9 L [place]mullen % (Auto) 7.0 Eos % (Auto) 6.1 H Baso % (Auto) 0.8 Absolute Neuts (auto) 3.6 Absolute Lymphs (auto) 0.89 Nucleated RBC % 0 Sodium 136 Potassium 4.6 Chloride 108 H Carbon Dioxide 19.0 L Anion Gap 9 BUN 54 H Creatinine 4.64 H Estim Creat Clear Calc 11.75 Est GFR (MDRD) Af Amer 12 L Est GFR (MDRD) Non-Af 10 L BUN/Creatinine Ratio 11.6 Glucose 289 H Calcium 8.5 Total Bilirubin 0.30 AST 8 L ALT 12 L Alkaline Phosphatase 111 Total Protein 6.4 Albumin 2.6 L Globulin 3.8 Albumin/Globulin Ratio 0.7 L Discharge Plan Triage Chief Complaint: Hypertension ED Provider: Anup Park Dx/Rx/DC Orders Clinical Impression: Uncontrolled hypertension, Chronic kidney disease Instructions: ED Chronic Kidney Disease (CKD), ED Hypertension, Established Prescriptions: New hydralazine 25 mg tablet 25 mg PO TID Qty: 60 0RF No Action diltiazem HCl 180 MG capsule 180 mg PO DAILY Label Comments: PT UNSURE OF STRENGTH HAS BEEN ON THE 180. PER PHARMACY DR SERRANO'S OFFICE CALLED IN A NEW SCRIPT ON 03/06/22. pantoprazole 40 MG tablet 40 mg PO DAILY atorvastatin 40 MG tablet 40 mg PO QHS aspirin 81 MG tablet,chewable 81 mg PO QHS clonidine HCl 0.3 MG tablet 0.3 mg PO TID insulin lispro [Humalog KwikPen Insulin] 100 unit/mL insulin pen 8 unit subcut TIDCM tramadol 50 mg tablet 50 mg PO BID PRN (Reason: Pain) sertraline 50 mg tablet 50 mg PO QHS ferrous sulfate [FeroSul] 325 mg (65 mg iron) tablet 325 mg PO QHS polyethylene glycol 3350 17 gram powder in packet 17 g PO DAILY PRN (Reason: Constipation) pregabalin 75 mg capsule 75 mg PO BID insulin glargine-yfgn 100 unit/mL (3 mL) insulin pen 25 unit subcut QHS Qty: 15 0RF Primary Care Provider: Dennys Serrano Referrals: Dennys Serrano MD [Primary Care Provider] - 5-7 Days Activity Restrictions/Additional Instructions: Keep track of your blood pressures for your primary care provider. Start hydralazine 25 mg by mouth 3 times a day. Stop if systolic blood pressure less than 100. Disposition Disposition: Home, Self Care
[2022-03-21] MEDS: hydrALAZINE 20 MG/ML Vial 10 MG IV (15:56)
[2022-03-21 16:16] LABS: Absolute Lymphocyte Count 0.89 X10^3/uL (0.83-4.51); Absolute Neutrophil Count 3.6 X10^3/uL (2.0-7.7); Basophil# 0.04 X10^3/uL; Basophil% 0.8 % (0-1); Eosinophil# 0.32 X10^3/uL; Eosinophils% 6.1 % (0-5); Lymphocyte # 0.89 X10^3/ul (0.83-4.51); Lymphocyte % 16.9 % (19-41); Mean Corpuscular Hgb 26.7 pg (27.0-32.0); Mean Platelet Vol. 10.2 fl (6.2-12.0); Monocyte# 0.37 X10^3/uL; NRBC Flagged by Analyzer 0 % (0-5); Neutrophil # 3.62 X10^3/uL (2.7-7.7); Neutrophil % 68.6 % (47-70); Platelet Count 233 K/mm3 (150-450); RBC Distribution Width CV 15.6 % (11.6-14.6); RBC Distribution Width SD 51.1 fl (35.1-43.9); Red Blood Count 3.37 M/mm3 (4.2-5.4); White Blood Count 5.3 K/mm3 (4.4-11.0)
[2022-03-21 16:40] LABS: ALB/GLOB Ratio 0.7 RATIO (0.9-2.4); AST(SGOT) 8 U/L (15-37); Alanine Aminotransfer ALT/SGPT 12 U/L (13-56); Albumin, Serum 2.6 g/dL (3.2-5.0); Alkaline Phosphatase 111 U/L (45-117); Anion Gap 9 (5-15); BUN 54 mg/dL (7-18); BUN/Creat Ratio 11.6 RATIO (10-20); Calcium,Total 8.5 mg/dL (8.5-10.1); Chloride 108 mmol/L (98-107); Creatinine, Serum 4.64 mg/dL (0.55-1.02); EST Glomerular Filtration Rate 10 mL/min (>60); Est Glom Filt Rate - Afr Amer 12 mL/min (>60); Estimated Creatinine Clearance 11.75 ml/min; Globulin 3.8 g/dL (2.2-4.2); Glucose 289 mg/dL (74-106); Potassium 4.6 mmol/L (3.5-5.1); Protein, Total 6.4 g/dL (6.4-8.2); Sodium Level 136 mmol/L (136-145)
== END 2022-03-21 23:07 | disposition home or self-care (01) ==
PROVIDERS: Emergency Provider Emergency Medicine; PCP Family Medicine; Visit Provider Emergency Medicine
DX: I12.9 Hypertensive chronic kidney disease with stage 1 through stage 4 chronic kidney disease, or unspecified chronic kidney disease (principal); E11.22 Type 2 diabetes mellitus with diabetic chronic kidney disease; N18.4 Chronic kidney disease, stage 4 (severe); Z79.4 Long term (current) use of insulin; E78.00 Pure hypercholesterolemia, unspecified
CPT/HCPCS: 80053; 85025; 93005; 99285; A4216

== ENCOUNTER 2022-03-30 12:20 | Outpatient (RCR) | payer MEDICARE, MEDICAID, SELFPAY ==
[2022-03-30 12:40] LABS: Absolute Lymphocyte Count 1.01 X10^3/uL (0.83-4.51); Absolute Neutrophil Count 3.8 X10^3/uL (2.0-7.7); Basophil# 0.06 X10^3/uL; Basophil% 1.1 % (0-1); Eosinophil# 0.29 X10^3/uL; Eosinophils% 5.2 % (0-5); Hematocrit 27.1 % (37-47); Hemoglobin 8.3 g/dL (12.0-15.0); Lymphocyte # 1.01 X10^3/ul (0.83-4.51); Lymphocyte % 18.3 % (19-41); Mean Corp Hgb Conc 30.6 g/dL (32-36); Mean Corpuscular Hgb 26.9 pg (27.0-32.0); Mean Corpuscular Volume 87.7 fL (81-99); Mean Platelet Vol. 11.1 fl (6.2-12.0); Monocyte# 0.32 X10^3/uL; Monocyte% 5.8 % (0-10); NRBC Flagged by Analyzer 0 % (0-5); Neutrophil # 3.78 X10^3/uL (2.7-7.7); Neutrophil % 68.3 % (47-70); Platelet Count 252 K/mm3 (150-450); RBC Distribution Width CV 16.9 % (11.6-14.6); RBC Distribution Width SD 54.9 fl (35.1-43.9); Red Blood Count 3.09 M/mm3 (4.2-5.4); White Blood Count 5.5 K/mm3 (4.4-11.0)
[2022-03-30 12:55] LABS: Anion Gap 8 (5-15); BUN 56 mg/dL (7-18); BUN/Creat Ratio 12.8 RATIO (10-20); Calcium,Total 8.6 mg/dL (8.5-10.1); Chloride 111 mmol/L (98-107); Creatinine, Serum 4.36 mg/dL (0.55-1.02); EST Glomerular Filtration Rate 11 mL/min (>60); Est Glom Filt Rate - Afr Amer 13 mL/min (>60); Glucose 264 mg/dL (74-106); Potassium 3.7 mmol/L (3.5-5.1); Sodium Level 140 mmol/L (136-145)
== END 2022-03-31 18:00 | disposition home or self-care (01) ==
LOC: HHLAB 12:20
PROVIDERS: PCP Family Medicine; Referring Provider Family Medicine; Visit Provider Family Medicine
DX: N18.4 Chronic kidney disease, stage 4 (severe) (principal); N17.9 Acute kidney failure, unspecified; K22.6 Gastro-esophageal laceration-hemorrhage syndrome; D62 Acute posthemorrhagic anemia
CPT/HCPCS: 80048; 85025

== ENCOUNTER 2022-04-14 18:01 | Observation (INO) | payer MEDICARE, MEDICAID, SELFPAY ==
[2022-04-14 18:02] VITALS: BP 136/64; PULSE 78; RESP 16; TEMP 36.6; O2SAT 99; BMI 33.3
[2022-04-14 19:09] LABS: Absolute Lymphocyte Count 1.06 X10^3/uL (0.83-4.51); Absolute Neutrophil Count 5.2 X10^3/uL (2.0-7.7); Basophil# 0.04 X10^3/uL; Basophil% 0.6 % (0-1); Eosinophil# 0.37 X10^3/uL; Eosinophils% 5.2 % (0-5); Hematocrit 27.7 % (37-47); Hemoglobin 8.5 g/dL (12.0-15.0); Lymphocyte # 1.06 X10^3/ul (0.83-4.51); Mean Corp Hgb Conc 30.7 g/dL (32-36); Mean Corpuscular Hgb 26.7 pg (27.0-32.0); Mean Corpuscular Volume 87.1 fL (81-99); Mean Platelet Vol. 10.4 fl (6.2-12.0); Monocyte# 0.37 X10^3/uL; Monocyte% 5.2 % (0-10); NRBC Flagged by Analyzer 0 % (0-5); Neutrophil # 5.17 X10^3/uL (2.7-7.7); Neutrophil % 73.4 % (47-70); Platelet Count 213 K/mm3 (150-450); RBC Distribution Width CV 16.6 % (11.6-14.6); RBC Distribution Width SD 53.2 fl (35.1-43.9); Red Blood Count 3.18 M/mm3 (4.2-5.4); White Blood Count 7.1 K/mm3 (4.4-11.0)
[2022-04-14 19:31] LABS: Anion Gap 10 (5-15); BUN 53 mg/dL (7-18); BUN/Creat Ratio 12.3 RATIO (10-20); Calcium,Total 8.5 mg/dL (8.5-10.1); Chloride 111 mmol/L (98-107); Creatinine, Serum 4.32 mg/dL (0.55-1.02); EST Glomerular Filtration Rate 11 mL/min (>60); Est Glom Filt Rate - Afr Amer 14 mL/min (>60); Estimated Creatinine Clearance 12.62 ml/min; Glucose 225 mg/dL (74-106); Potassium 3.1 mmol/L (3.5-5.1); Sodium Level 143 mmol/L (136-145)
[2022-04-14 21:06] LABS: Mucous, Urine 0 SEEN /hpf (<or=2+); Squamous Epithelial Cells - UA 0 SEEN /hpf (5-10)
[2022-04-14 21:30] LABS: Color, Urine Yellow (Yellow); Glucose, Dipstick Normal (Normal); Ketone-Dipstick 5 mg/dl (Negative); Leukocyte Esterase-Dipstick 500 /ul (Negative); Nitrite-Dipstick Negative (Negative); Occult Blood-Urine 25 /ul (Negative); Protein-Dipstick 100 mg/dl (Negative); Urine Bilirubin Dipstick Negative (Negative); Urine Clarity Cloudy (Clear); Urine Urobilinogen Normal (Normal)
[2022-04-14 21:38] LABS: Bacteria 3+ /hpf (None Seen); Red Blood Cells-Urine 0-5 SEEN /hpf (0-5); White Blood Cells >100 SEEN /hpf (0-5)
[2022-04-14 21:40] LABS: Transitional Epithelial - Ur 0-5 SEEN /hpf (0-5)
[2022-04-14] MEDS: Ceftriaxone 1 GM/50 ML BAG IV (21:52)
--- NOTE | 2022-04-14 22:25 | EDS_ITS ---
HPI History of Present Illness Chief Complaint: Weakness Informant: patient Onset/Context/Timing Onset: Days (2) Context: Gradual Onset Timing: Continuous Quality: Weakness Location: Generalized Worsened by: Nothing Relieved by: Nothing Narrative Narrative: Patient presents with generalized weakness for the past 2 days. Patient states she feels weak all over. Patient states this is constantly getting worse. Patient states nothing makes it better nothing makes it worse. Patient denies any fevers or chills. Patient denies any chest pain or shortness of breath. Patient denies any nausea or vomiting. Patient denies any headaches or back pain. Patient states she is having difficulty getting around at home. Patient states she has someone at home to help her but she does not feel she can go home and be safe. [facility] Medical History Anemia Bilateral pleural effusion Cardiology follow-up encounter Chronic pain syndrome CKD (chronic kidney disease) stage 4, GFR 15-29 ml/min Closed intertrochanteric fracture of left hip Diabetes Diabetes mellitus with hyperglycemia Dietary restriction Essential hypertension Excessive bleeding Fall Gastric reflux High cholesterol History of echocardiogram History of edema History of orthostatic hypotension History of stress test HLD (hyperlipidemia) HTN (hypertension) Hx of orthostatic hypotension Injury of head and neck Insulin dependent diabetes mellitus Low iron Malnutrition Migraine headache Migraine without aura Non-smoker Post-concussion syndrome Symptomatic anemia Syncope Transfusion of blood during current hospitalisation Type II diabetes mellitus Vertigo Vomiting Wears glasses Home Medications diltiazem HCl 180 mg capsule,extended release 24 hr 180 mg PO DAILY blood pressure 12/17/18 [History Last Taken 03/13/22] aspirin 81 mg chewable tablet 81 mg PO QHS HEART HEALTH 12/15/19 [History Last Taken 03/13/22] atorvastatin 40 mg tablet 40 mg PO QHS CHOLESTEROL 12/15/19 [History Last Taken 03/13/22] pantoprazole 40 mg tablet,delayed release 40 mg PO DAILY GERD 12/15/19 [History Last Taken 03/13/22] clonidine HCl 0.3 mg tablet 0.3 mg PO TID BLOOD PRESSURE 01/06/22 [History Last Taken 03/13/22] insulin lispro 100 unit/mL subcutaneous pen (Humalog KwikPen (U-100) Insulin) 8 unit subcut TIDCM diabetes 01/06/22 [History Last Taken 03/13/22] sertraline 50 mg tablet 50 mg PO QHS DEPRESSION 01/06/22 [History Last Taken 03/13/22] tramadol 50 mg tablet 50 mg PO BID PRN Pain 01/06/22 [History Last Taken 03/13/22] ferrous sulfate 325 mg (65 mg iron) tablet (FeroSul) 325 mg PO QHS SUPPLEMENT 02/13/22 [History Last Taken 03/13/22] polyethylene glycol 3350 17 gram oral powder packet 17 g PO DAILY PRN Constipation 02/13/22 [History Last Taken 03/13/22] pregabalin 75 mg capsule 75 mg PO BID PAIN 02/25/22 [History Last Taken 03/13/22] insulin glargine-yfgn 100 unit/mL (3 mL) subcutaneous pen 25 unit (0.25 mL) subcut QHS DIABETES #15 mL 02/28/22 [Rx Last Taken 03/13/22] hydralazine 25 mg tablet 25 mg PO TID #60 tabs 03/21/22 [Rx Last Taken Unknown] Allergy/AdvReac Type Severity Reaction Status Date / Time metformin AdvReac Diarrhea Verified 03/21/22 15:37 Family History Mother Hypertension Father Cancer lymphoma, leukemia Emphysema of lung Grandmother Diabetes Surgical History History of cholecystectomy History of cholecystectomy History of esophagogastroduodenoscopy (EGD) History of mandibular surgery Hx of colonoscopy Social History household members: significant other Smoking Status: Never smoker alcohol intake: never substance use type: does not use ROS ROS ED Constitutional Constitutional ED: Denies chills or fever(s) Eyes Eyes: Denies blurry vision or change in vision ENT ENT ED: Denies rhinorrhea or sore throat Cardiovascular Cardiovascular: Denies chest pain or palpitations Respiratory/Chest Respiratory/Chest: Denies cough or dyspnea Gastrointestinal Gastrointestinal: Denies nausea or vomiting Genitourinary Genitourinary ED: Denies dysuria or hematuria Musculoskeletal Musculoskeletal: Denies back pain or neck pain Integumentary Denies abscess or rash Neurologic Neurologic: Reports weakness; Denies headache(s) Allergic/Immunologic Allergic/Immunologic ED: Denies mouth swelling or urticaria EXAM Physical Exam Const Vital Signs: 04/14/22 18:02 04/14/22 19:02 Temperature 97.8 F Temperature Source Temporal Pulse Rate 78 Respiratory Rate 16 Respiratory Effort Normal Non-Labored Respiratory Pattern Normal Blood Pressure 136/64 H Blood Pressure Mean 88 Pulse Ox 99 Oxygen Delivery Method Room Air Positive well nourished and well developed General Appearance ED: well developed and NAD HEENT Reports dry mucous membranes Mouth ED: Yes dry mucous membranes Mouth: dry mucous membranes Resp normal respiratory effort and clear to auscultation bilaterally Cardio regular rate and regular rhythm GI normal to inspection, nondistended, normoactive bowel sounds and non-distended Palpation: tender suprapubic; Negative for guarding or rebound tenderness present Neuro oriented x3, CN's II-XII intact bilaterally and no sensory deficits noted Sensorium / Orientation: alert Motor Exam: general weakness Psych mental status grossly normal MDM MDM MDM Narrative Medical decision making narrative: Patient was given a 500 cc bolus of normal saline because she appeared to be somewhat dehydrated on examination. CBC was obtained and was reviewed. There is a mild anemia with a hemoglobin of 8.5 and hematocrit 27.7. Prior outpatient lab results were reviewed and were consistent with today's values. Basic metabolic profile was obtained and was reviewed. There is a mild hypokalemia of 3.1. BUN and creatinine were elevated at 53 and 4.32. Prior outpatient results were reviewed and were consistent with today's values. Glucose was slightly elevated at 225. Urinalysis was obtained and was reviewed. There is a leukocyte esterases of 500 with greater than 100 white blood cells. There is 3+ bacteria. Urine culture was ordered. The patient was started on Rocephin. Patient was also given a dose of oral potassium here. Patient states she does not feel she can take care of herself at home. Patient states she does not have any bed can care for her at home. Patient was advised that she would need to go to a rehab facility if we admit her for her urinary tract infection. Patient is agreeable with this. Patient states she was wanting to go to [facility] rehab facility. Case was discussed with the hospitalist. She will admit the patient for observation. Patient understood and was agreeable with the plan. All questions were answered. Lab Data Attestation: I reviewed the patient's lab results. Labs: Laboratory Results - last 24 hr 04/14/22 04/14/22 04/14/22 19:05 19:05 20:50 WBC 7.1 RBC 3.18 L Hgb 8.5 L Hct 27.7 L MCV 87.1 MCH 26.7 L MCHC 30.7 L RDW Std Deviation 53.2 H RDW Coeff of Chris 16.6 H Plt Count 213 MPV 10.4 Immature Gran % (Auto) 0.600 Neut % (Auto) 73.4 H Lymph % (Auto) 15.0 L [place] % (Auto) 5.2 Eos % (Auto) 5.2 H Baso % (Auto) 0.6 Absolute Neuts (auto) 5.2 Absolute Lymphs (auto) 1.06 Nucleated RBC % 0 Sodium 143 Potassium 3.1 L Chloride 111 H Carbon Dioxide 22.0 Anion Gap 10 BUN 53 H Creatinine 4.32 H Estim Creat Clear Calc 12.62 Est GFR (MDRD) Af Amer 14 L Est GFR (MDRD) Non-Af 11 L BUN/Creatinine Ratio 12.3 Glucose 225 H Calcium 8.5 Urine Color Yellow Urine Clarity Cloudy Urine pH 7.0 Ur Specific [place] 1.010 Urine Protein 100 H Urine Glucose (UA) Normal Urine Ketones 5 H Urine Occult Blood 25 H Urine Nitrite Negative Urine Bilirubin Negative Urine Urobilinogen Normal Ur Leukocyte Esterase 500 H Urine RBC 0-5 SEEN Urine WBC >100 SEEN Ur Squamous Epith Cells 0 SEEN Ur Transition Epith Cell 0-5 SEEN Urine Bacteria 3+ Urine Mucus 0 SEEN Discharge Plan Triage Chief Complaint: Weakness ED Provider: Arnold Nowak Dx/Rx/DC Orders Clinical Impression: Urinary tract infection, CKD (chronic kidney disease) stage 3, GFR 30-59 ml/min, Generalized weakness, Debility Prescriptions: No Action diltiazem HCl 180 MG capsule 180 mg PO DAILY Label Comments: PT UNSURE OF STRENGTH HAS BEEN ON THE 180. PER PHARMACY DR SERARNO'S OFFICE CALLED IN A NEW SCRIPT ON 03/06/22. pantoprazole 40 MG tablet 40 mg PO DAILY atorvastatin 40 MG tablet 40 mg PO QHS aspirin 81 MG tablet,chewable 81 mg PO QHS clonidine HCl 0.3 MG tablet 0.3 mg PO TID insulin lispro [Humalog KwikPen Insulin] 100 unit/mL insulin pen 8 unit subcut TIDCM tramadol 50 mg tablet 50 mg PO BID PRN (Reason: Pain) sertraline 50 mg tablet 50 mg PO QHS ferrous sulfate [FeroSul] 325 mg (65 mg iron) tablet 325 mg PO QHS polyethylene glycol 3350 17 gram powder in packet 17 g PO DAILY PRN (Reason: Constipation) pregabalin 75 mg capsule 75 mg PO BID insulin glargine-yfgn 100 unit/mL (3 mL) insulin pen 25 unit subcut QHS Qty: 15 0RF hydralazine 25 mg tablet 25 mg PO TID Qty: 60 0RF Primary Care Provider: Dennys Serrano Referrals: Dennys Serrano MD [Primary Care Provider] - Disposition Disposition: Acute Care Hospital [facility]
[2022-04-14] MEDS: Potassium Chloride Oral Tablet 20 MEQ 40 MEQ PO (22:26)
--- NOTE | 2022-04-14 22:28 | HP.PCM.HOS_ITS ---
HPI - General General Date of Admission: 04/14/22 Date of Service: 04/14/22 Chief Complaint: generalised weakness HPI Narrative LAYNE VINCENT, is a 61 F with a PMh as outlined who presents with a complaint of weakness. She says she has been feeling weak for several days now, and her symptoms havent improved. She denies any fever, chills, cough, chest pain, palpitations, dizziness, nausea, vomiting or diarrhea. Review of systems was otherwise negative. Vitals were BP of 136/64, RI of 78, RR of 16 and temp of 97.8F. She was saturating at 99% on room air. CBC showed Hb of 8.5 and wbc of 7.1 as well as platelets of 213. Chemistry showed sodium of 145, potassium of 3.1 and Cr of 4.32. Urinalysis showed 3+ bacteria and >100 wbc/hpf. She is being admitted to be managed for debility due to UTI [facility] Medical History Anemia Bilateral pleural effusion Cardiology follow-up encounter Chronic pain syndrome CKD (chronic kidney disease) stage 4, GFR 15-29 ml/min Closed intertrochanteric fracture of left hip Diabetes Diabetes mellitus with hyperglycemia Dietary restriction Essential hypertension Excessive bleeding Fall Gastric reflux High cholesterol History of echocardiogram History of edema History of orthostatic hypotension History of stress test HLD (hyperlipidemia) HTN (hypertension) Hx of orthostatic hypotension Injury of head and neck Insulin dependent diabetes mellitus Low iron Malnutrition Migraine headache Migraine without aura Non-smoker Post-concussion syndrome Symptomatic anemia Syncope Transfusion of blood during current hospitalisation Type II diabetes mellitus Vertigo Vomiting Wears glasses Home Medications diltiazem HCl 180 mg capsule,extended release 24 hr 180 mg PO DAILY blood pressure 12/17/18 [History Last Taken 03/13/22] aspirin 81 mg chewable tablet 81 mg PO QHS HEART HEALTH 12/15/19 [History Last Taken 03/13/22] atorvastatin 40 mg tablet 40 mg PO QHS CHOLESTEROL 12/15/19 [History Last Taken 03/13/22] pantoprazole 40 mg tablet,delayed release 40 mg PO DAILY GERD 12/15/19 [History Last Taken 03/13/22] clonidine HCl 0.3 mg tablet 0.3 mg PO TID BLOOD PRESSURE 01/06/22 [History Last Taken 03/13/22] insulin lispro 100 unit/mL subcutaneous pen (Humalog KwikPen (U-100) Insulin) 8 unit subcut TIDCM diabetes 01/06/22 [History Last Taken 03/13/22] sertraline 50 mg tablet 50 mg PO QHS DEPRESSION 01/06/22 [History Last Taken 03/13/22] tramadol 50 mg tablet 50 mg PO BID PRN Pain 01/06/22 [History Last Taken 03/13/22] ferrous sulfate 325 mg (65 mg iron) tablet (FeroSul) 325 mg PO QHS SUPPLEMENT 02/13/22 [History Last Taken 03/13/22] polyethylene glycol 3350 17 gram oral powder packet 17 g PO DAILY PRN Constipation 02/13/22 [History Last Taken 03/13/22] pregabalin 75 mg capsule 75 mg PO BID PAIN 02/25/22 [History Last Taken 03/13/22] insulin glargine-yfgn 100 unit/mL (3 mL) subcutaneous pen 25 unit (0.25 mL) subcut QHS DIABETES #15 mL 02/28/22 [Rx Last Taken 03/13/22] hydralazine 25 mg tablet 25 mg PO TID #60 tabs 03/21/22 [Rx Last Taken Unknown] Allergy/AdvReac Type Severity Reaction Status Date / Time metformin AdvReac Diarrhea Verified 03/21/22 15:37 Family History Mother Hypertension Father Cancer lymphoma, leukemia Emphysema of lung Grandmother Diabetes Surgical History History of cholecystectomy History of cholecystectomy History of esophagogastroduodenoscopy (EGD) History of mandibular surgery Hx of colonoscopy Social History household members: significant other Smoking Status: Never smoker alcohol intake: never substance use type: does not use ROS Review of Systems ROS Unobtainable: Denies due to encephalopathy Constitutional Constitutional: Reports fatigue, fever(s), malaise and weakness; Denies anorexia or chills Eyes Eyes: Denies change in vision ENT HEENT: Denies dysphagia, headache(s), nasal discharge or sore throat Cardiovascular Cardiovascular: Denies chest pain, dyspnea on exertion, edema, lightheadedness, orthopnea, palpitations, rapid heart rate or syncope Respiratory/Chest Respiratory/Chest: Denies cough, dyspnea, shortness of breath at rest or shor tness of breath with exertion Gastrointestinal Gastrointestinal: Reports nausea; Denies abdominal pain, constipation, diarrhea, dyspepsia or vomiting Genitourinary Genitourinary: Denies burning urination, dysuria or urinary urgency Musculoskeletal Musculoskeletal: Denies arthralgias or joint pain Neurologic Neurologic: Denies confusion, dizziness, focal weakness, headache(s), seizures or syncope Psychiatric Psychiatric: Denies anxiety Endocrine Endocrinology: Denies change in body appearance Hematologic/Lymphatic Hematologic/Lymphatic: Denies anemia Vital Signs Vital Signs Vital Signs: 04/14/22 18:02 04/14/22 19:02 Temperature 97.8 F Temperature Source Temporal Pulse Rate 78 Respiratory Rate 16 Respiratory Effort Normal Non-Labored Respiratory Pattern Normal Blood Pressure 136/64 H Blood Pressure Mean 88 Pulse Ox 99 Oxygen Delivery Method Room Air Weight Weight: 200 lb Body Mass Index (BMI) 33.3 Physical Exam Const alert, oriented x3 and no apparent distress Constitutional Narrative: flat affect General Appearance: cooperative HEENT normocephalic, head/scalp atraumatic, hearing grossly normal bilaterally and moist oral mucous membranes Mouth: oral and palatal mucosa normal Eyes PERRL, EOMs intact bilaterally and conjunctivae normal Neck no lymphadenopathy and supple Resp normal respiratory effort, no retractions, no use of accessory muscles and clear to auscultation bilaterally Cardio regular rate, regular rhythm, S1 normal heart sound, S2 normal heart sound and no murmurs GI normal to inspection, nondistended, normoactive bowel sounds, soft to palpation, non-tender and non-distended Extremity normal to inspection, full ROM and no clubbing, cyanosis or edema Neuro oriented x3, CN's II-XII intact bilaterally and moves all extremities Sensorium / Orientation: awake and alert Motor Exam: strength 5/5 throughout Psych affect normal Results Lab / Micro Data Result Diagrams: 04/14/22 19:05 04/14/22 19:05 Labs: Laboratory Results - last 24 hr 04/14/22 19:05: WBC 7.1, RBC 3.18 L, Hgb 8.5 L, Hct 27.7 L, MCV 87.1, MCH 26.7 L , MCHC 30.7 L, RDW Std Deviation 53.2 H, RDW Coeff of Chris 16.6 H, Plt Count 213, MPV 10.4, Immature Gran % (Auto) 0.600, Neut % (Auto) 73.4 H, Lymph % (Auto) 15. 0 L, [place] % (Auto) 5.2, Eos % (Auto) 5.2 H, Baso % (Auto) 0.6, Absolute Neuts (auto) 5.2, Absolute Lymphs (auto) 1.06, Nucleated RBC % 0 04/14/22 19:05: Sodium 143, Potassium 3.1 L, Chloride 111 H, Carbon Dioxide 22.0, Anion Gap 10, BUN 53 H, Creatinine 4.32 H, Estim Creat Clear Calc 12.62, Est GFR (MDRD) Af Amer 14 L, Est GFR (MDRD) Non-Af 11 L, BUN/Creatinine Ratio 12.3, Glucose 225 H, Calcium 8.5 04/14/22 20:50: Urine Color Yellow, Urine Clarity Cloudy, Urine pH 7.0, Ur Specific [place] 1.010, Urine Protein 100 H, Urine Glucose (UA) Normal, Urine Ketones 5 H, Urine Occult Blood 25 H, Urine Nitrite Negative, Urine Bilirubin Negative, Urine Urobilinogen Normal, Ur Leukocyte Esterase 500 H, Urine RBC 0-5 SEEN, Urine WBC >100 SEEN, Ur Squamous Epith Cells 0 SEEN, Ur Transition Epith Cell 0-5 SEEN, Urine Bacteria 3+, Urine Mucus 0 SEEN Assessment & Plan Assessment/Plan (1) Dehydration: (2) UTI (urinary tract infection): PLAN: Plan #Debility and failure to thrive * patient has been getting weaker at home and says she is not even able to ambulate around * she has been trying to get into a rehab facility to no avail * admit to med surg * hydrate very gently with IVF in light of her CKD IV * urinalysis showed evidence of UTI * will place on IV ceftriaxone * urine cultures ordered and pending * PT/OT consult * fall precautions * #UTI: urinalysis showed 3+ bacteria. Get urine culture. Will monitor #CKD IV: Cr is 4.32. Not on dialysis. THis is around her baseline Cr. Will monitor #Stage IV pressure ulcer of left foot * present on admission. both lower extremities wrapped in bandage * get wound care consult * #Chronic anemia * Hb is 8.5. likely due to anemia of chronic disease * this is around her baseline * will monitor * HFpEF: not in exacerbation. On lasix. Will continue #Hypertension; on cardizem and clonidine #Hyperlipidemia: on statin #Type 2 diabetes mellitus: on lantus 25 units qhs. ISS. Accuchecks ACHS DVT prophylaxis: lovenox Code status: full code * Patient counseled extensively about different types of CODE STATUS including full code, DNR CCA and DNR CCA. Patient elects to be full code. * Total rslv-et-krho time 17 minutes. Charges/Coding Visit Charges OBSV E&M: 15947 Observ/hosp same date L3 Procedures Hospitalists Procedures: 97809 Advncd Care Plan 30 Min
[2022-04-14 23:21] VITALS: BP 122/74; PULSE 88; RESP 18; TEMP 36.7; O2SAT 97
[2022-04-14 23:41] VITALS: BMI 28.8
[2022-04-14 23:46] VITALS: BP 138/68; PULSE 53; RESP 16; TEMP 36; O2SAT 97
[2022-04-15 05:25] VITALS: BP 169/71; PULSE 58; RESP 16; TEMP 36.3; O2SAT 97
[2022-04-15 05:30] VITALS: PULSE 58
[2022-04-15] MEDS: hydrALAZINE 25 MG Tablet PO (05:30)
[2022-04-15] MEDS: traMADol 50 MG Tablet PO (05:30)
[2022-04-15] MEDS: cloNIDine HCl 0.1 MG Tablet 0.3 MG PO ×3 (05:30→20:44)
[2022-04-15 06:23] LABS: Absolute Lymphocyte Count 1.05 X10^3/uL (0.83-4.51); Absolute Neutrophil Count 3.9 X10^3/uL (2.0-7.7); Basophil# 0.03 X10^3/uL; Basophil% 0.5 % (0-1); Eosinophil# 0.36 X10^3/uL; Eosinophils% 6.3 % (0-5); Hematocrit 29.2 % (37-47); Lymphocyte # 1.05 X10^3/ul (0.83-4.51); Lymphocyte % 18.4 % (19-41); Mean Corp Hgb Conc 30.8 g/dL (32-36); Mean Corpuscular Hgb 26.9 pg (27.0-32.0); Mean Corpuscular Volume 87.4 fL (81-99); Mean Platelet Vol. 10.8 fl (6.2-12.0); Monocyte# 0.32 X10^3/uL; Monocyte% 5.6 % (0-10); NRBC Flagged by Analyzer 0 % (0-5); Neutrophil % 68.5 % (47-70); Platelet Count 188 K/mm3 (150-450); RBC Distribution Width CV 16.6 % (11.6-14.6); RBC Distribution Width SD 53.4 fl (35.1-43.9); Red Blood Count 3.34 M/mm3 (4.2-5.4); White Blood Count 5.7 K/mm3 (4.4-11.0)
[2022-04-15 07:01] LABS: Anion Gap 9 (5-15); BUN 51 mg/dL (7-18); BUN/Creat Ratio 12.7 RATIO (10-20); Calcium,Total 8.3 mg/dL (8.5-10.1); Chloride 112 mmol/L (98-107); Creatinine, Serum 4.01 mg/dL (0.55-1.02); EST Glomerular Filtration Rate 12 mL/min (>60); Est Glom Filt Rate - Afr Amer 15 mL/min (>60); Estimated Creatinine Clearance 13.59 ml/min; Glucose 240 mg/dL (74-106); Potassium 3.9 mmol/L (3.5-5.1); Sodium Level 141 mmol/L (136-145)
--- NOTE | 2022-04-15 07:24 | PN.HOSP_ITS ---
Subjective Subjective Follow-up for generalized weakness and debility. Objective Data Objective Data Vital Signs: Vital Signs Temp Pulse Resp BP Pulse Ox O2 Del Method 97.4 F L 58 L 16 169/71 H 97 Room Air 04/15/22 05:25 04/15/22 05:30 04/15/22 05:25 04/15/22 05:25 04/15/22 05:25 04/15/22 05:25 Oxygen Delivery Method Room Air Weight: 172 lb 13.478 oz Body Mass Index (BMI) 28.8 Intake & Output: Intake and Output for Last 24 Hours 04/13/22 04/14/22 04/15/22 23:59 23:59 23:59 Intake Total 550 / 550 100 / 100 Balance 550 / 550 100 / 100 Lab / Micro Data Result Diagrams: 04/15/22 05:50 04/15/22 05:50 Labs: Laboratory Results - last 24 hr 04/14/22 19:05: WBC 7.1, RBC 3.18 L, Hgb 8.5 L, Hct 27.7 L, MCV 87.1, MCH 26.7 L , MCHC 30.7 L, RDW Std Deviation 53.2 H, RDW Coeff of Chris 16.6 H, Plt Count 213, MPV 10.4, Immature Gran % (Auto) 0.600, Neut % (Auto) 73.4 H, Lymph % (Auto) 15.0 L, [place] % (Auto) 5.2, Eos % (Auto) 5.2 H, Baso % (Auto) 0.6, Absolute Neuts (auto) 5.2, Absolute Lymphs (auto) 1.06, Nucleated RBC % 0 04/14/22 19:05: Sodium 143, Potassium 3.1 L, Chloride 111 H, Carbon Dioxide 22.0, Anion Gap 10, BUN 53 H, Creatinine 4.32 H, Estim Creat Clear Calc 12.62, Est GFR (MDRD) Af Amer 14 L, Est GFR (MDRD) Non-Af 11 L, BUN/Creatinine Ratio 1 2.3, Glucose 225 H, Calcium 8.5 04/14/22 20:50: Urine Color Yellow, Urine Clarity Cloudy, Urine pH 7.0, Ur Specific [place] 1.010, Urine Protein 100 H, Urine Glucose (UA) Normal, Urine Ketones 5 H, Urine Occult Blood 25 H, Urine Nitrite Negative, Urine Bilirubin Negative, Urine Urobilinogen Normal, Ur Leukocyte Esterase 500 H, Urine RBC 0-5 SEEN, Urine WBC >100 SEEN, Ur Squamous Epith Cells 0 SEEN, Ur Transition Epith Cell 0-5 SEEN, Urine Bacteria 3+, Urine Mucus 0 SEEN 04/15/22 05:50: WBC 5.7, RBC 3.34 L, Hgb 9.0 L, Hct 29.2 L, MCV 87.4, MCH 26.9 L , MCHC 30.8 L, RDW Std Deviation 53.4 H, RDW Coeff of Chris 16.6 H, Plt Count 188, MPV 10.8, Immature Gran % (Auto) 0.700, Neut % (Auto) 68.5, Lymph % (Auto) 18.4 L, [place] % (Auto) 5.6, Eos % (Auto) 6.3 H, Baso % (Auto) 0.5, Absolute Neuts (auto) 3.9, Absolute Lymphs (auto) 1.05, Nucleated RBC % 0 04/15/22 05:50: Sodium 141, Potassium 3.9, Chloride 112 H, Carbon Dioxide 20.0 L , Anion Gap 9, BUN 51 H, Creatinine 4.01 H, Estim Creat Clear Calc 13.59, Est GFR (MDRD) Af Amer 15 L, Est GFR (MDRD) Non-Af 12 L, BUN/Creatinine Ratio 12.7, Glucose 240 H, Calcium 8.3 L Physical Exam Narrative Patient denies new burning LUTS including micturition, increased frequency urgency. [place] subjective fever 1 time at home. Has been living at home for 4 days and did not walk for more than 2 to days per General: Alert, Oriented x3, Cooperative HEENT: Atraumatic, PERRLA, EOMI, Normocephalic Oral: Oral mucosa dry. No Gingival or Mucosal Lesions/ Ulcerations Neck: Supple, No JVD, Negative Carotid Bruits Lungs: Air entry diminished in bilateral lung bases. No crepitation/rhonchi Cardiovascular: Regular rate, Regular Rhythm, Normal S1, Normal S2, systolic murmur cardiac apex and LLSB Abdomen: Bowel Sounds Present, Soft, Non Tender, Non-Distended : No renal angle tenderness. No suprapubic tenderness. Extremities: No edema, Capillary Refill Less than 3 Seconds Skin: No rashes, No breakdown Musculoskeletal: No Tenderness to Palpation of Joints or Extremities, muscle strength 4/5 at major joints of lower extremities ROM restricted. Neurological: Cranial nerves II-XII grossly intact, DTR 2+/4 and Symmetrical, Neuro grossly intact Psych/Mental Status: Flat affect. Assessment & Plan Assessment/Plan (1) Dehydration: (2) UTI (urinary tract infection): PLAN: Plan 61-year-old female admitted with generalized weakness for several days without improvement. No other associated constitutional symptoms. UA 3+ bacteria, WBC more than 100 WBC per hpf. #Debility and failure to thrive * patient has been getting weaker at home and says she is not even able to ambulate around for 2 to 3 days * urinalysis showed evidence of UTI * on IV ceftriaxone * PT/OT consult * fall precautions 04/15: treatment manager consult to try for SNF. #UTI: urinalysis showed 3+ bacteria, WBC more than 100 per HPF. 04/15: Urine culture preliminary GNR more than 100,000 colonies. Will monitor Continue IV ceftriaxone and follow urine culture. #CKD IV: Cr is 4.32. Not on dialysis. THis is around her baseline Cr. Will monitor. Mild hypokalemia K3.1 04/15: Patient not on IV fluid. Avoid fluid overload in view of CKD IV because of low free water clearance. #Stage IV pressure ulcer of left foot * present on admission. both lower extremities wrapped in bandage * get wound care consult * Patient has left heel ulcer and right ankle ulcer near the medial malleolus. Dressing is done. Offloading. #Chronic anemia * Hb is 8.5. likely due to anemia of chronic disease * this is around her baseline * Continue monitor HFpEF: not in exacerbation. On lasix. continue #Hypertension; on cardizem and clonidine BP is elevated. Patient on high dose of clonidine 0.3 mg 3 times daily.Hydralazine IV as needed ordered, hydralazine dose increased to 50 mg twice daily. #Hyperlipidemia: on statin #Type 2 diabetes mellitus: on lantus 25 units qhs. ISS. Accuchecks ACHS DVT prophylaxis: lovenox Code status: full code * Patient counseled extensively about different types of CODE STATUS including full code, DNR CCA and DNR CCA. Patient elects to be full code. * Total lwnm-on-lmqk time 17 minutes. Charges/Coding Visit Charges Inpatient E&M: 61970 Subs Hosp L2
[2022-04-15 07:33] VITALS: BP 168/70; PULSE 67; RESP 16; TEMP 36.6; O2SAT 97
[2022-04-15] MEDS: Insulin Lispro 100 UNIT/ML INSULN.PEN 8 UNIT SC ×2 (08:34→13:09)
[2022-04-15] MEDS: Insulin Lispro 100 UNIT/ML INSULN.PEN SC ×3 (08:35→17:23)
[2022-04-15] MEDS: dilTIAZem CD 180 MG Capsule PO (11:22)
[2022-04-15] MEDS: Pantoprazole Sodium 40 MG Tablet PO (11:23)
[2022-04-15] MEDS: Enoxaparin 30 MG/0.3 ML Syringe SC (11:23)
[2022-04-15] MEDS: Pregabalin 75 MG Capsule PO ×2 (11:26→20:52)
[2022-04-15 14:34] VITALS: BP 128/61; PULSE 65; RESP 16; TEMP 36.7; O2SAT 97
[2022-04-15 20:33] VITALS: BP 129/57; PULSE 68; RESP 18; TEMP 36.8; O2SAT 94
[2022-04-15] MEDS: Aspirin 81 MG TAB.CHEW PO (20:44)
[2022-04-15] MEDS: Sertraline 50 MG Tablet PO (20:44)
[2022-04-15] MEDS: Atorvastatin Calcium 40 MG Tablet PO (20:45)
[2022-04-15] MEDS: Ferrous Sulfate 325 MG Tablet PO (20:46)
--- NOTE | 2022-04-15 20:47 | NURSING ---
patient blood sugar 144 per Yane
[2022-04-15 20:52] VITALS: PULSE 68
[2022-04-15] MEDS: hydrALAZINE 50 MG Tablet PO (20:52)
[2022-04-15] MEDS: Insulin Glargine-YFGN 100 UNIT/ML Pen 25 UNIT SC (20:53)
[2022-04-15] MEDS: Ceftriaxone 1 GM/50 ML BAG IV (20:54)
[2022-04-15] MEDS: 0.9% Saline Lock 10 ML Syringe IV (20:54)
[2022-04-16] VITALS (7 sets, daily range): BP systolic 131–157; BP diastolic 66–75; PULSE 63–72; RESP 15–18; TEMP 36.3–37.2; O2SAT 96–99
[2022-04-16] MEDS: cloNIDine HCl 0.1 MG Tablet 0.3 MG PO ×3 (05:29→20:22)
[2022-04-16] MEDS: 0.9% Saline Lock 10 ML Syringe IV ×2 (05:29→16:58)
--- NOTE | 2022-04-16 05:31 | NURSING ---
blood sugar per Freestyle Yane 74. Snack given.
[2022-04-16] MEDS: Pantoprazole Sodium 40 MG Tablet PO (08:03)
[2022-04-16] MEDS: Enoxaparin 30 MG/0.3 ML Syringe SC (08:03)
[2022-04-16] MEDS: dilTIAZem CD 180 MG Capsule PO (08:03)
[2022-04-16] MEDS: hydrALAZINE 50 MG Tablet PO ×2 (08:04→20:22)
[2022-04-16] MEDS: Pregabalin 75 MG Capsule PO ×2 (08:06→20:22)
[2022-04-16 08:35] LABS: Bedside Glucose 94 mg/dL (74-106)
--- NOTE | 2022-04-16 09:43 | WOUNDNOTE ---
wound photo:left heel
--- NOTE | 2022-04-16 09:44 | WOUNDNOTE ---
skin photo: left lower leg
--- NOTE | 2022-04-16 09:44 | WOUNDNOTE ---
skin photo: right lower leg
--- NOTE | 2022-04-16 09:58 | PCM.PN.HOSP ---
Subjective Subjective Follow-up on debility/Acute UTI: Patient was seen and examined. She denied any new complaint. She still feels fatigued but slowly improving. Discharge planning to [facility] facility ongoing. Discussed with high school social science teacher; patient has been given list of facilities and making her choices. Objective Data Objective Data Vital Signs: Vital Signs Temp Pulse Resp BP Pulse Ox O2 Del Method 97.9 F 63 15 141/75 H 97 Room Air 04/16/22 08:00 04/16/22 08:04 04/16/22 08:00 04/16/22 08:00 04/16/22 08:00 04/16/22 08:00 Oxygen Delivery Method Room Air Weight: 78.4 kg Body Mass Index (BMI) 28.8 Intake & Output: Intake and Output for Last 24 Hours 04/14/22 04/15/22 04/16/22 23:59 23:59 23:59 Intake Total 550 / 550 350 / 350 100 / 100 Output Total 100 / 100 Balance 550 / 550 250 / 250 100 / 100 Lab / Micro Data Result Diagrams: 04/15/22 05:50 04/15/22 05:50 Labs: Laboratory Results - last 24 hr 04/16/22 08:14: POC Glucose 94 Micro: Microbiology 04/16/22 05:29 Stool C. difficile DNA Amplification - Final 04/14/22 20:50 Urine, Catheterized Urine Culture - Final Enterobacter cloacae complex Physical Exam Narrative Physical exam: General: Alert, Oriented x3, Cooperative, appears fatigued HEENT: Atraumatic Oral: Moist Mucosa Neck: Supple Lungs: Clear to auscultation Cardiovascular: HS I+II, regular, no murmurs Abdomen: Bowel Sounds Present, Soft, Non Tender Extremities: No edema Skin: No rashes, No breakdown Neurological: Grossly intact Psych/Mental Status: Appropriate Assessment & Plan Assessment/Plan (1) Dehydration: (2) UTI (urinary tract infection): PLAN: Plan 1. Debility secondary to acute UTI PT and OT evaluated and recommended SNF Social work working on discharge plan 2. Acute Enterobacter UTI, patient with history of recurrent UTIs Switch from IV ceftriaxone to Levaquin Aim for total of 1 week antibiotics treatment 3. Type II DM, blood sugars are fairly controlled Continue Lantus 25 units nightly, Premeal insulin 8 units 3 times daily, insulin sliding scale 4. CKD stage IV, creatinine is close to baseline, c Needs to follow-up closely with nephrology 5. Stage IV pressure ulcers, bilaterally, POA Wound RN following 6. Anemia of CKD, hemoglobin remains close to baseline at 9.0 7. Rest of chronic medical conditions including heart failure with preserved EF, not in acute exacerbation/Hypertension/Hyperlipidemia complicates care, management and prognosis. Continue on Lasix, Cardizem and clonidine 8. DVT prophylaxis?Lovenox subcu Charges/Coding Visit Charges Inpatient E&M: 58734 Subs Hosp L2
--- NOTE | 2022-04-16 10:10 | CASEMGMT ---
Social Work? ? SW in to pt room to verify advance directives. Pt confirmed has AD and named?Lyle Brownutzman,?significant other, as agent. SW made pt aware documents are not on file and if pt would like to bring these documents in the documents can be dropped off at the Medical Records department. Pt voiced understanding.?? ? SHARON Pelaez?
--- NOTE | 2022-04-16 10:11 | CASEMGMT ---
Social Work? SW in to meet with pt following update from Dr Centeno that pt will need placement at nursing facility. SW introduced self and role at the hospital. Pt agreeable to discussing discharge planning. A list of SNF providers including quality and resource use data consistent with the patient?s preferred geographic region, medical needs, and insurance network were provided from the [facility] Guide. Pt reviewed list but asked if SW would send referral to [facility]. SW informed pt that rehab facilities have specific criteria and diagnoses that would have to be met for acceptance. SW explained pt does not have these. Pt continued to request a referral be sent to [facility]. ASHANTI explained ot pt that in order to send a referral pt will need to work with physical therapy here at [facility]. Pt refused to work with PT yesterday. Pt stated therapy had been in already this morning and she worked with them. SW will send referral to [facility] when therapy notes are in. ASHANTI explained to pt to review SNF list of alternative choices if [facility] declines. Pt agreeable. ?? PLAN: Rehab vs. SNF ? SHARON Pelaez?
[2022-04-16 12:25] LABS: Bedside Glucose 74 mg/dL (74-106)
[2022-04-16] MEDS: levoFLOXacin 500 MG Tablet PO (13:38)
--- NOTE | 2022-04-16 14:43 | CASEMGMT ---
Social work SW received phone call from [facility]. [facility] unable to accept pt due to not meeting criteria for acute rehab. SW in to notify pt. Pt voiced understanding. Pt stated had reviewed list of other SNF options given by ASHANTI this morning. Pt listed preference in order as: [facility], [facility] in [place] then [facility] in [place]. SW sent referral to [facility], asked for [facility] to begin precert miguel if able to accept. Will await determination. PLAN: [facility], pending acceptance and precert SHARON Pelaez
--- NOTE | 2022-04-16 14:46 | CASEMGMT ---
PRIYA CM in to discuss [employer] form with patient. RN CM explained [employer] form, patient voiced understanding. Pt signed form and filed in chart. Pt provided with a copy of signed [employer] form. Patient had no further questions or concerns at this time.
--- NOTE | 2022-04-16 15:19 | CASEMGMT ---
Social Work Ann from [facility] reached out. Pt has been accepted at [facility]. Ann to start precert today. PLAN: [facility], pending precert SHARON Pelaez
[2022-04-16 17:21] LABS: Bedside Glucose 113 mg/dL (74-106)
[2022-04-16] MEDS: Atorvastatin Calcium 40 MG Tablet PO (20:22)
[2022-04-16] MEDS: Aspirin 81 MG TAB.CHEW PO (20:22)
[2022-04-16] MEDS: Sertraline 50 MG Tablet PO (20:22)
[2022-04-16] MEDS: traMADol 50 MG Tablet PO (20:22)
[2022-04-16] MEDS: Ferrous Sulfate 325 MG Tablet PO (20:23)
[2022-04-16] MEDS: Insulin Glargine-YFGN 100 UNIT/ML Pen 25 UNIT SC (20:23)
[2022-04-16 20:50] LABS: Bedside Glucose 138 mg/dL (74-106)
[2022-04-17 03:11] VITALS: BP 149/75; PULSE 65; RESP 18; TEMP 36.6; O2SAT 95
[2022-04-17] MEDS: Ondansetron 4 MG/2 ML Vial IV (06:05)
[2022-04-17] MEDS: cloNIDine HCl 0.1 MG Tablet 0.3 MG PO (06:06)
[2022-04-17] MEDS: Dextrose 50%-Water 25 GM/50 ML DISP.SYRIN IV (06:07)
--- NOTE | 2022-04-17 06:07 | NURSING ---
BG was 32. pt slurring words, alert x3 but drowzy. 1amp D50 given. snacks also provided
--- NOTE | 2022-04-17 06:14 | NURSING ---
repeat blood sugar is 166 at this time.
[2022-04-17 06:30] LABS: Glucose 157 mg/dL (74-106)
[2022-04-17 07:35] LABS: Bedside Glucose 166 mg/dL (74-106)
[2022-04-17 07:35] LABS: Bedside Glucose 32 mg/dL (74-106)
[2022-04-17 07:38] VITALS: BP 136/78; PULSE 74; RESP 14; TEMP 36.7; O2SAT 95
[2022-04-17 07:43] VITALS: PULSE 74
[2022-04-17] MEDS: hydrALAZINE 50 MG Tablet PO (07:43)
[2022-04-17] MEDS: dilTIAZem CD 180 MG Capsule PO (07:43)
[2022-04-17] MEDS: Pantoprazole Sodium 40 MG Tablet PO (07:43)
[2022-04-17] MEDS: Pregabalin 75 MG Capsule PO (07:43)
[2022-04-17] MEDS: Enoxaparin 30 MG/0.3 ML Syringe SC (07:44)
--- NOTE | 2022-04-17 09:39 | CASEMGMT ---
Social Work Ann [facility] reached out. Precert has been obtained. SW updated MD Centeno. PLAN: SHARON Alcaraz
[2022-04-17 10:06] VITALS: O2SAT 96
--- NOTE | 2022-04-17 10:08 | PCM.TXEXTCAR ---
Diet Diet Order/Speech Therapy: 04/14/22 23:41 Diet: Consistent Carb - Calorie Controlled Food consistency:: Regular Liquid Consistency:: Regular/Thin How many daily calories?: 1800 calorie Routine Orders/Code Status Suppository Type: Dulcolax 10mg Suppository Frequency: Daily PRN Keep PO Greater than or Equal to (%): 94 Routine Lab Work: CBC (within 3 days) and - (CMP within 3 days) Code Status: Full Code Wound(s) bilat lower legs: Wound Type: stasis dermatitis Dressing Change: Adaptic toes: Wound Type: Abrasion left heel: Wound Type: Neuropathic/Diabetic Foot Ulcer Dressing Change: AntiMicrobial (Aquacel AG, etc) rt inner thigh: Wound Type: Pressure Injury Therapies Weight Bearing: Weight bearing as tolerated Physical Therapy: Eval and Treat Occupational Therapy: Eval and Treat Problem/Diagnosis (1) UTI (urinary tract infection): Status: Acute Code(s): N39.0 - Urinary tract infection, site not specified Plan 1. Debility secondary to acute UTI 2. Acute Enterobacter UTI 3. Type II DM 4. CKD stage IV 5. Stage IV pressure ulcers,lower legs, bilaterally, POA 6. Anemia of CKD 7.Chronic heart failure with preserved EF 8. Hypertension 9. Hyperlipidemia Allergies/Procedures Done in Hospital Allergies metformin Adverse Reaction (Verified 03/21/22 15:37) Diarrhea Procedures: None Type of Care/Length of Stay Estimated LOS: Convalescent Care Less Than 30 days Type of Care Needed: Skilled Rehab Potential: Good Prognosis: Good Additional Orders/Day of Discharge Day of Discharge: 04/17/22 Discharge Plan Admission Admit Date/Time: 04/14/22 22:32 Primary Reason for Your Visit: Acute UTI/debility Attending Provider: Madonna Centeno Primary Care Provider: Dennys Serrano Consulting Providers: Alicia Oconnell ; Go Matos Discharge Orders/Prescriptions Prescriptions: New hydralazine 50 mg Tablet 50 mg PO BID Qty: 0 0RF insulin glargine-yfgn 100 unit/mL (3 mL) Insulin Pen 10 unit subcut QHS Qty: 0 0RF levofloxacin 250 mg Tablet 250 mg PO Q48 2 Days Qty: 2 0RF Continued diltiazem HCl 180 MG capsule 180 mg PO DAILY Label Comments: PT UNSURE OF STRENGTH HAS BEEN ON THE 180. PER PHARMACY DR NESTOR'S OFFICE CALLED IN A NEW SCRIPT ON 03/06/22. pantoprazole 40 MG tablet 40 mg PO DAILY atorvastatin 40 MG tablet 40 mg PO QHS aspirin 81 MG tablet,chewable 81 mg PO QHS clonidine HCl 0.3 MG tablet 0.3 mg PO TID insulin lispro [Humalog KwikPen Insulin] 100 unit/mL insulin pen 8 unit subcut TIDCM tramadol 50 mg tablet 50 mg PO BID PRN (Reason: Pain) sertraline 50 mg tablet 50 mg PO QHS ferrous sulfate [FeroSul] 325 mg (65 mg iron) tablet 325 mg PO QHS polyethylene glycol 3350 17 gram powder in packet 17 g PO DAILY PRN (Reason: Constipation) pregabalin 75 mg capsule 75 mg PO BID Discontinued insulin glargine-yfgn 100 unit/mL (3 mL) insulin pen 25 unit subcut QHS Qty: 15 0RF hydralazine 25 mg tablet 25 mg PO TID Qty: 60 0RF Referrals / Follow Up: Dennys Serrano MD [Primary Care Provider] - Disposition Disposition (needs filled in before D/C Order can be placed): Senior Living Facility
--- NOTE | 2022-04-17 11:07 | PCM.DC.SUM ---
Providers Date of Admission: 04/14/22 Date of Discharge: 04/17/22 Primary Care Physician: Dr. 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 Debility secondary to acute UTI 2. Acute Enterobacter UTI 3. Type II DM 4. CKD stage IV 5. Stage IV pressure ulcers,lower legs, bilaterally, POA 6. Anemia of CKD 7.Chronic heart failure with preserved EF 8. Hypertension 9. Hyperlipidemia Medications at Discharge Home Medications diltiazem HCl 180 mg capsule,extended release 24 hr 180 mg PO DAILY blood pressure 12/17/18 aspirin 81 mg chewable tablet 81 mg PO QHS HEART HEALTH 12/15/19 atorvastatin 40 mg tablet 40 mg PO QHS CHOLESTEROL 12/15/19 pantoprazole 40 mg tablet,delayed release 40 mg PO DAILY GERD 12/15/19 clonidine HCl 0.3 mg tablet 0.3 mg PO TID BLOOD PRESSURE 01/06/22 insulin lispro 100 unit/mL subcutaneous pen (Humalog KwikPen (U-100) Insulin) 8 unit subcut TIDCM diabetes 01/06/22 sertraline 50 mg tablet 50 mg PO QHS DEPRESSION 01/06/22 tramadol 50 mg tablet 50 mg PO BID PRN Pain 01/06/22 ferrous sulfate 325 mg (65 mg iron) tablet (FeroSul) 325 mg PO QHS SUPPLEMENT 02/13/22 polyethylene glycol 3350 17 gram oral powder packet 17 g PO DAILY PRN Constipation 02/13/22 pregabalin 75 mg capsule 75 mg PO BID PAIN 02/25/22 hydralazine 50 mg tablet 50 mg PO BID #0 tabs 04/17/22 insulin glargine-yfgn 100 unit/mL (3 mL) subcutaneous pen 10 unit (0.1 mL) subcut QHS #0 mL 04/17/22 levofloxacin 250 mg tablet 250 mg PO Q48 2 days #2 tabs 04/17/22 Hospital Course Operations None Procedures None Summary of Care Provided Minutes Spent on Discharge: 35 Hospital Course: 61-year-old female with multiple comorbidities, history of recurrent UTI who comes in with debility. Patient any fever or chills. Vitals in ED were stable. She was found to have hypokalemia of 3.1, creatinine 4.32 which is close to baseline. Urinalysis was suggestive of acute UTI. Urine culture Enterobacter cloacae. Patient's family is unable to take care of her. Patient was admitted to the [facility] floor and managed on gentle IV fluids and IV antibiotics her creatinine remained the same. Patient did have episodes of hypoglycemia and her insulin dose was decreased to 10 units nightly as well as insulin sliding scale. Patient was seen by PT and OT and skilled for discharge to longterm facility. Patient was discharged on oral Levaquin to 50 mg every 48 hours to cover 2 days making a total of 7 days treatment. Physical Exam Narrative Physical exam: General: Alert, Oriented x3, Cooperative, appears fatigued HEENT: Atraumatic Oral: Moist Mucosa Neck: Supple Lungs: Clear to auscultation Cardiovascular: HS I+II, regular, no murmurs Abdomen: Bowel Sounds Present, Soft, Non Tender Extremities: No edema Skin: No rashes, No breakdown Neurological: Grossly intact Psych/Mental Status: Appropriate Weight / BMI Weight Weight: 78.4 kg Body Mass Index (BMI) 28.8 ABG / Lab / Microbiology Data Result Diagrams: 04/15/22 05:50 04/17/22 06:13 Laboratory: Laboratory Results - last 24 hr 04/16/22 11:33: POC Glucose 74 04/16/22 16:53: POC Glucose 113 H 04/16/22 20:21: POC Glucose 138 H 04/17/22 05:58: POC Glucose 32 L* 04/17/22 06:13: Glucose 157 H 04/17/22 06:13: POC Glucose 166 H Microbiology: Microbiology 04/17/22 09:50 Nasal Secretion SARS-CoV-2 Antigen (Rapid) - Final 04/16/22 05:29 Stool C. difficile DNA Amplification - Final 04/14/22 20:50 Urine, Catheterized Urine Culture - Final Enterobacter cloacae complex D/C Instructions Discharge Diet: Low fat / Low cholesterol and 2000 mg Sodium Diet Discharge Activity: Return to Normal Activity Meaningful Use Info Meaningful Use Diagnoses (Choose all that apply): None applicable Discharge Plan Admission Admit Date/Time: 04/14/22 22:32 Primary Reason for Your Visit: Acute UTI/debility Attending Provider: Madonna Centeno Primary Care Provider: Dennys Baez Consulting Providers: Alicia Oconnell ; Go Matos Discharge Orders/Prescriptions Prescriptions: New hydralazine 50 mg Tablet 50 mg PO BID Qty: 0 0RF insulin glargine-yfgn 100 unit/mL (3 mL) Insulin Pen 10 unit subcut QHS Qty: 0 0RF levofloxacin 250 mg Tablet 250 mg PO Q48 2 Days Qty: 2 0RF Continued diltiazem HCl 180 MG capsule 180 mg PO DAILY Label Comments: PT UNSURE OF STRENGTH HAS BEEN ON THE 180. PER PHARMACY DR BAEZ'S OFFICE CALLED IN A NEW SCRIPT ON 03/06/22. pantoprazole 40 MG tablet 40 mg PO DAILY atorvastatin 40 MG tablet 40 mg PO QHS aspirin 81 MG tablet,chewable 81 mg PO QHS clonidine HCl 0.3 MG tablet 0.3 mg PO TID insulin lispro [Humalog KwikPen Insulin] 100 unit/mL insulin pen 8 unit subcut TIDCM tramadol 50 mg tablet 50 mg PO BID PRN (Reason: Pain) sertraline 50 mg tablet 50 mg PO QHS ferrous sulfate [FeroSul] 325 mg (65 mg iron) tablet 325 mg PO QHS polyethylene glycol 3350 17 gram powder in packet 17 g PO DAILY PRN (Reason: Constipation) pregabalin 75 mg capsule 75 mg PO BID Discontinued insulin glargine-yfgn 100 unit/mL (3 mL) insulin pen 25 unit subcut QHS Qty: 15 0RF hydralazine 25 mg tablet 25 mg PO TID Qty: 60 0RF Referrals / Follow Up: Dennys Baez MD [Primary Care Provider] - Disposition Disposition (needs filled in before D/C Order can be placed): [facility] Facility Charges/Coding Visit Charges Inpatient E&M: 59478 Disch Hosp >30min
--- NOTE | 2022-04-17 11:26 | PHA.DC.MR ---
Pharmacy Service has performed discharge medication reconciliation for this patient. The patient's discharge medication list was reviewed for discrepancies and discrepancies were resolved. Home Medications diltiazem HCl 180 mg capsule,extended release 24 hr 180 mg PO DAILY blood pressure 12/17/18 aspirin 81 mg chewable tablet 81 mg PO QHS HEART HEALTH 12/15/19 atorvastatin 40 mg tablet 40 mg PO QHS CHOLESTEROL 12/15/19 pantoprazole 40 mg tablet,delayed release 40 mg PO DAILY GERD 12/15/19 clonidine HCl 0.3 mg tablet 0.3 mg PO TID BLOOD PRESSURE 01/06/22 insulin lispro 100 unit/mL subcutaneous pen (Humalog KwikPen (U-100) Insulin) 8 unit subcut TIDCM diabetes 01/06/22 sertraline 50 mg tablet 50 mg PO QHS DEPRESSION 01/06/22 tramadol 50 mg tablet 50 mg PO BID PRN Pain 01/06/22 ferrous sulfate 325 mg (65 mg iron) tablet (FeroSul) 325 mg PO QHS SUPPLEMENT 02/13/22 polyethylene glycol 3350 17 gram oral powder packet 17 g PO DAILY PRN Constipation 02/13/22 pregabalin 75 mg capsule 75 mg PO BID PAIN 02/25/22 hydralazine 50 mg tablet 50 mg PO BID #0 tabs 04/17/22 insulin glargine-yfgn 100 unit/mL (3 mL) subcutaneous pen 10 unit (0.1 mL) subcut QHS #0 mL 04/17/22 levofloxacin 250 mg tablet 250 mg PO Q48 2 days #2 tabs 04/17/22
[2022-04-17 11:40] LABS: Bedside Glucose 167 mg/dL (74-106)
[2022-04-17] MEDS: Insulin Lispro 100 UNIT/ML INSULN.PEN SC (12:30)
--- NOTE | 2022-04-17 12:47 | NURSING ---
report called to l[facility].
--- NOTE | 2022-04-17 13:13 | CASEMGMT ---
Social Work? ASHANTI notified pt of discharge to [facility] today. ASHANTI completed [facility] convalescent form in [employer]. Set up wheelchair transportation through [facility] for 1:30 pm. ASHANTI faxed all discharge orders to [facility] via [employer] and notified of discharge time. ASHANTI notified charge nurse of transport time. ASHANTI made copies of discharge orders and placed on pt chart. Sent original orders in envelope with pt upon discharge.?? Disposition: [facility], skilled, convalescent, level of care? SHARON Pelaez?
== END 2022-04-17 14:04 | disposition skilled nursing facility (03) ==
LOC: ED 22:41 → MS3 22:50
PROVIDERS: Hospitalist; Admitting Provider Student in an Organized Health Care Education/Training Program; Emergency Provider Emergency Medicine; PCP Family Medicine; Visit Provider Internal Medicine
DX: N39.0 Urinary tract infection, site not specified (principal); L89.894 Pressure ulcer of other site, stage 4; E11.621 Type 2 diabetes mellitus with foot ulcer; I13.0 Hypertensive heart and chronic kidney disease with heart failure and stage 1 through stage 4 chronic kidney disease, or unspecified chronic kidney disease; I50.32 Chronic diastolic (congestive) heart failure; E11.59 Type 2 diabetes mellitus with other circulatory complications; E11.22 Type 2 diabetes mellitus with diabetic chronic kidney disease; E11.65 Type 2 diabetes mellitus with hyperglycemia; N18.4 Chronic kidney disease, stage 4 (severe); Z79.4 Long term (current) use of insulin; R53.81 Other malaise; E78.5 Hyperlipidemia, unspecified; E86.0 Dehydration; B96.89 Other specified bacterial agents as the cause of diseases classified elsewhere; Z79.82 Long term (current) use of aspirin; I87.2 Venous insufficiency (chronic) (peripheral); E78.00 Pure hypercholesterolemia, unspecified; G89.4 Chronic pain syndrome; E87.6 Hypokalemia; D63.1 Anemia in chronic kidney disease
CPT/HCPCS: 36415; 80048; 81001; 82947; 82962; 85025; 87077; 87086; 87088; 87186; 87426; 87493; 96361; 96365; 96366; 96372; 96375; 97110; 97162; 97166; 97530; 97535; 99221; 99285; J7030; P9612; A4216; G0378; J2405

== ENCOUNTER 2022-04-30 09:13 | Inpatient (IN) | payer MEDICARE, MEDICAID, SELFPAY ==
[2022-04-30] VITALS (13 sets, daily range): BP systolic 169–188; BP diastolic 78–94; PULSE 81–97; RESP 16–24; TEMP 36.4–36.6; O2SAT 88–96; BMI 30.7; BMI 29.8
--- NOTE | 2022-04-30 09:41 | EDS_ITS ---
HPI History of Present Illness Chief Complaint: Nosebleed Narrative Narrative: 61-year-old female here with concern for epistaxis. She states she is been feeling weak. Denies dizziness chest pain or shortness of breath but notes she passed out prior to arrival. States she fell forward out of her wheelchair. Denies any PE risk factors. The patient denies recent surgery in the last 4 weeks or immobilization in the last 3 days, denies previous diagnosis of DVT or PE, hemoptysis, unilateral leg swelling or malignancy with treatment the last 6 months. No estrogen use noted. Denies any ripping or tearing pain. Denies history of aneurysms. Does note some mild lower extremity edema. [facility] Medical History Anemia Bilateral pleural effusion Cardiology follow-up encounter Chronic pain syndrome CKD (chronic kidney disease) stage 4, GFR 15-29 ml/min Closed intertrochanteric fracture of left hip Diabetes Diabetes mellitus with hyperglycemia Dietary restriction Essential hypertension Excessive bleeding Fall Gastric reflux High cholesterol History of echocardiogram History of edema History of orthostatic hypotension History of stress test HLD (hyperlipidemia) HTN (hypertension) Hx of orthostatic hypotension Injury of head and neck Insulin dependent diabetes mellitus Low iron Malnutrition Migraine headache Migraine without aura Non-smoker Post-concussion syndrome Symptomatic anemia Syncope Transfusion of blood during current hospitalisation Type II diabetes mellitus Vertigo Vomiting Wears glasses Home Medications diltiazem HCl 180 mg capsule,extended release 24 hr 180 mg PO DAILY blood pressure 12/17/18 [History Last Taken 04/14/22] aspirin 81 mg chewable tablet 81 mg PO QHS HEART HEALTH 12/15/19 [History Last Taken 04/14/22] atorvastatin 40 mg tablet 40 mg PO QHS CHOLESTEROL 12/15/19 [History Last Taken 04/13/22] pantoprazole 40 mg tablet,delayed release 40 mg PO DAILY GERD 12/15/19 [History Last Taken 04/14/22] clonidine HCl 0.3 mg tablet 0.3 mg PO TID BLOOD PRESSURE 01/06/22 [History Last Taken 04/14/22] insulin lispro 100 unit/mL subcutaneous pen (Humalog KwikPen (U-100) Insulin) 8 unit subcut TIDCM diabetes 01/06/22 [History Last Taken 04/14/22] sertraline 50 mg tablet 50 mg PO QHS DEPRESSION 01/06/22 [History Last Taken 04/14/22] tramadol 50 mg tablet 50 mg PO BID PRN Pain 01/06/22 [History Last Taken 03/13/22] ferrous sulfate 325 mg (65 mg iron) tablet (FeroSul) 325 mg PO QHS SUPPLEMENT 02/13/22 [History Last Taken 04/14/22] polyethylene glycol 3350 17 gram oral powder packet 17 g PO DAILY PRN Constipation 02/13/22 [History Last Taken 03/13/22] pregabalin 75 mg capsule 75 mg PO BID PAIN 02/25/22 [History Last Taken 04/14/22] hydralazine 50 mg tablet 50 mg PO BID #0 tabs 04/17/22 [Rx Last Taken Unknown] insulin glargine-yfgn 100 unit/mL (3 mL) subcutaneous pen 10 unit (0.1 mL) subcut QHS #0 mL 04/17/22 [Rx Last Taken Unknown] levofloxacin 250 mg tablet 250 mg PO Q48 2 days #2 tabs 04/17/22 [Rx Last Taken Unknown] Allergy/AdvReac Type Severity Reaction Status Date / Time metformin AdvReac Diarrhea Verified 03/21/22 15:37 Family History Mother Hypertension Father Cancer lymphoma, leukemia Emphysema of lung Grandmother Diabetes Surgical History History of cholecystectomy History of cholecystectomy History of esophagogastroduodenoscopy (EGD) History of mandibular surgery Hx of colonoscopy Social History household members: significant other Smoking Status: Never smoker alcohol intake: never substance use type: does not use ROS ROS ED ROS Narrative Constitutional: Denies fever HEENT: Denies sore throat, epistaxis Neck: Denies neck pain Cardiovascular: Denies chest pain, endorses syncope Respiratory: Denies shortness of breath GI: Denies nausea vomiting or abdominal pain : Denies changes in urinary habits Musculoskeletal: Denies muscle or joint pain Neurologic: Denies numbness weakness or loss of sensation Skin denies rash EXAM Physical Exam Narrative Exam Narrative: Nursing triage notes reviewed, Vital signs reviewed Constitutional: please see mdm HENT: MMM, bruising noted to nasal bridge, controlled bleeding noted over right nare, nasal cannula in place Eyes: Pupils equal round and reactive to light, Extraocular muscles intact Neck: No stridor, no JVD, full neck ROM Lungs: Coarse breath sounds, bilateral rales noted. No increased work of breathing, no conversational dyspnea, no accessory muscle use, no nasal flaring. No respiratory distress noted Heart: Regular rate and rhythm, No murmurs, No rubs and No gallops, 2+ distal pulses (radial, femoral, posterior tibial) in all extremities Abdomen: Soft, there is no tenderness, rigidity, rebound or guarding, no obvious peritoneal signs, no palpable pulsatile abdominal masses, no auscultated abdominal bruit : No CVAT Extremities: Trace edema, bilateral lower extremities with chronic appearing erythema no obvious purulence no obvious crepitus or bullae Neuro: No focal neurological deficits, cranial nerves II through XII intact, 5/5 strength in all extremities. Intact sensation to light touch in all extremities, 2+ reflexes bilateral patella dens. Normal gait. No ataxia. Skin: Erythema noted to bilateral lower extremity Const Vital Signs: 04/30/22 09:17 04/30/22 09:19 04/30/22 09:33 Temperature 97.6 F L Temperature Source Temporal Pulse Rate 89 Respiratory Rate 18 Respiratory Pattern Blood Pressure 188/88 H Blood Pressure Mean 121 Pulse Ox 88 90 96 Oxygen Delivery Method Room Air Nasal Cannula Nasal Cannula Oxygen Flow Rate (L/min) 2 3 04/30/22 09:34 04/30/22 11:28 04/30/22 11:55 Temperature Temperature Source Pulse Rate 86 83 Respiratory Rate 18 24 H Respiratory Pattern Normal Blood Pressure 178/81 H Blood Pressure Mean 113 Pulse Ox 96 93 Oxygen Delivery Method Nasal Cannula Nasal Cannula Oxygen Flow Rate (L/min) 3 3 MDM MDM MDM Narrative Medical decision making narrative: Chief Complaint: Epistaxis External records reviewed: Recent hospitalization for diffuse weakness and UTI. Last ejection fraction 45% I considered: CHF, pneumonia, COVID-19, PE, anemia, dehydration or electrolyte abnormalities, intracranial normalities, cervical spine fracture dislocation, facial fracture dislocation Patient was initially hypoxic requiring 3 L nasal cannula she is also hypertensive. I considered pulmonary embolism as a potential diagnosis however with the patient CKD I do not think the patient could tolerate a contrasted study. In addition she had no right heart rate on EKG, no elevated troponin. Had no risk factors a low risk Wells score. Did not think it was necessary to perform a CT at this time given focal lung findings both on auscultation on chest x-ray and signs of heart failure which is a more likely explanation. I obtained a broad lab and imaging work-up to further elucidate the etiology of patient complaints. Labs remarkable for evidence of hyperkalemia, baseline CKD, elevated BNP which suggest fluid overload. There is no ischemic change on EKG or with a negative troponin. Patient is likely some from CHF, hypoxia. Gave insulin, dextrose and albuterol for hyper kalemia. Discussed with the hospitalist who agreed the patient be admitted to the hospital given hypoxia, new oxygen requirement, CHF, hyperkalemia. Patient was admitted to telemetry in stable condition I obtained advanced imaging the head, cervical spine and face which showed no evidence of acute traumatic injury, intracranial bleeding or cervical spine fracture dislocation Factors affecting care: Type 2 diabetes, CKD stage IV, CHF, hypertension, hyperlipidemia Social determinants of health: Poor health literacy Shared decision making: I will have a discussion with the patient and or visitors regarding risk/benefits of further testing or admission. They will be made aware of of the risk/benefits inherent in this decision they will be given the opportunity to voice understanding. Consults: Hospitalist Lab Data Attestation: I reviewed the patient's lab results. Lab results narrative: CBC with no leukocytosis to suggest systemic inflammation, baseline anemia, no thrombocytopenia BNP elevated consistent with volume overload Troponin is negative, no evidence of myocardial ischemia BMP with hyperkalemia, baseline CKD, no significant anion gap or signs of other electrolyte abnormality. Labs: Laboratory Results - last 24 hr 04/30/22 04/30/22 04/30/22 10:45 10:45 10:45 WBC 8.1 RBC 3.03 L Hgb 8.1 L Hct 27.3 L MCV 90.1 MCH 26.7 L MCHC 29.7 L RDW Std Deviation 56.9 H RDW Coeff of Chris 17.2 H Plt Count 191 MPV 10.9 Sodium 140 Potassium 6.6 H* Chloride 112 H Carbon Dioxide 22.0 Anion Gap 6 BUN 54 H Creatinine 3.98 H Estim Creat Clear Calc 13.70 Est GFR (MDRD) Af Amer 15 L Est GFR (MDRD) Non-Af 12 L BUN/Creatinine Ratio 13.6 Glucose 328 H Calcium 8.6 Troponin I High Sens 14 B-Natriuretic Peptide 784.9 H Radiography Diagnostic Testing: Clinical Impression(s) from Imaging Studies Brain CT 04/30/22 09:58 IMPRESSION: Chronic involutional changes of the brain. Electronically Signed: Angel Manley MD at 11:48 EST , Cervical Spine CT 04/30/22 09:58 IMPRESSION: Mild degenerative changes, as described above. Electronically Signed: Angel Manley MD at 11:50 EST , Facial/Sinus 04/30/22 09:58 IMPRESSION: Minimal degree of mucosal thickening at the base of both maxillary sinuses slightly worse on the left side. Electronically Signed: Angel Manley MD at 11:54 EST , Chest X-Ray 04/30/22 10:30 IMPRESSION: Cardiomegaly and CHF. Bilateral pleural effusions with bibasilar atelectasis and/or infiltrates worse on the left side. Electronically Signed: Angel Manley MD at 10:42 EST , Chest x-ray personally read and interpreted by myself shows bilateral pulmonary edema consistent with CHF likely explanation the patient's hypoxia EKG Initial EKG: Comments: EKG with normal sinus rhythm, normal axis, normal intervals, no obvious STEMI, no signs of right heart strain Critical Care Time Critical Care Time: Yes Critical care time (excluding procedures): 30-74 minutes Discharge Plan Triage Chief Complaint: Nosebleed ED Provider: Ash,Louis Dx/Rx/DC Orders Clinical Impression: Hypoxia, CHF exacerbation, Acute hyperkalemia, CKD (chronic kidney disease), Acute anterior epistaxis Prescriptions: No Action diltiazem HCl 180 MG capsule 180 mg PO DAILY Label Comments: PT UNSURE OF STRENGTH HAS BEEN ON THE 180. PER PHARMACY DR BAEZ'S OFFICE CALLED IN A NEW SCRIPT ON 03/06/22. pantoprazole 40 MG tablet 40 mg PO DAILY atorvastatin 40 MG tablet 40 mg PO QHS aspirin 81 MG tablet,chewable 81 mg PO QHS clonidine HCl 0.3 MG tablet 0.3 mg PO TID insulin lispro [Humalog KwikPen Insulin] 100 unit/mL insulin pen 8 unit subcut TIDCM tramadol 50 mg tablet 50 mg PO BID PRN (Reason: Pain) sertraline 50 mg tablet 50 mg PO QHS ferrous sulfate [FeroSul] 325 mg (65 mg iron) tablet 325 mg PO QHS polyethylene glycol 3350 17 gram powder in packet 17 g PO DAILY PRN (Reason: Constipation) pregabalin 75 mg capsule 75 mg PO BID hydralazine 50 mg Tablet 50 mg PO BID Qty: 0 0RF insulin glargine-yfgn 100 unit/mL (3 mL) Insulin Pen 10 unit subcut QHS Qty: 0 0RF levofloxacin 250 mg Tablet 250 mg PO Q48 2 Days Qty: 2 0RF Primary Care Provider: Dennys Baez Referrals: Dennys Baez MD [Primary Care Provider] -
--- NOTE | 2022-04-30 09:58 | CT_ITS ---
STUDY: CT BRAIN WITHOUT CONTRAST REASON FOR EXAM: Female, 61 years old. Fall, head trauma RADIATION DOSAGE (If Supplied By Facility): CTDIvol = ( 44.99 ) mGy, DLP = ( 779.24 ) mGycm TECHNIQUE: Transaxial CT imaging of the brain was performed without administration of intravenous contrast material. Individualized dose optimization techniques were used for this CT. COMPARISON: Comparison is made with prior study dated 02/26/2022. FINDINGS: Normal soft tissue structures. Normal calvarium. There is mild cerebral atrophy with widening of the extra-axial spaces and ventricular dilatation. There are areas of decreased attenuation within the white matter tracts of the supratentorial brain, consistent with microvascular disease changes. Normal basal ganglia and thalami. Normal brainstem. Normal cerebellum. There is no intracranial hemorrhage. There are no findings of an acute ischemic infarction. Stable minimal mucosal thickening in the inferior aspect of the left maxillary sinus. CT/Brain/Head without Contrast IMPRESSION: Chronic involutional changes of the brain. Electronically Signed: Angel Manley MD at 11:48 EST ,
--- NOTE | 2022-04-30 09:58 | CT_ITS ---
STUDY: CT FACIAL BONES WITHOUT CONTRAST REASON FOR EXAM: Female, 61 years old. Fall, facial trauma, nosebleeding RADIATION DOSAGE (If Supplied By Facility): CTDIvol = ( 29.38 ) mGy, DLP = ( 642.95 ) mGycm TECHNIQUE: The patient was scanned in a multi detector CT scanner. Sagittal and coronal images were reconstructed. Individualized dose optimization techniques were used for this CT. COMPARISON: None. FINDINGS: Normal soft tissue structures. Normal orbital arnett and orbital contents. Normal nasal bones and anterior nasal spine. Normal facial bones. There is no demonstrated fracture. Minimal degree of mucosal thickening at the base of the maxillary sinuses bilaterally. CT/Sinus/Facial Bone IMPRESSION: Minimal degree of mucosal thickening at the base of both maxillary sinuses slightly worse on the left side. Electronically Signed: Angel Manley MD at 11:54 EST ,
--- NOTE | 2022-04-30 09:58 | CT_ITS ---
STUDY: CT CERVICAL SPINE WITHOUT CONTRAST REASON FOR EXAM: Female, 61 years old. Fall, neck pain rule out cervical spine injury RADIATION DOSAGE (If Supplied By Facility): CTDIvol = ( 19.97 ) mGy, DLP = ( 405.26 ) mGycm TECHNIQUE: High resolution transaxial imaging was performed without contrast material. Sagittal and coronal images were reconstructed. Individualized dose optimization techniques were used for this CT. COMPARISON: Comparison is made with prior radiographs dated 04/09/2019. FINDINGS: Normal craniovertebral junction. Normal anterior atlantoaxial articulation. Normal odontoid process. There is straightening of the normal cervical lordosis. Normal vertebral bodies and posterior osseous elements. C2-3: Normal endplates. Normal disc height and morphology. Normal central canal and intervertebral neuroforamina. C3-4: Normal endplates. Normal disc height and morphology. Normal central canal and intervertebral neuroforamina. C4-5: Minimal anterior spondylosis at the C4-C5 disc space level. Normal disc height and morphology. Normal central canal and intervertebral neuroforamina. C5-6: Normal endplates. Normal disc height and morphology. Normal central canal and intervertebral neuroforamina. C6-7: Normal endplates. Normal disc height and morphology. Normal central canal and intervertebral neuroforamina. C7-T1: Normal endplates. Normal disc height and morphology. Normal central canal and intervertebral neuroforamina. Normal visualized soft tissue structures. CT/Spine Cervical without Contras IMPRESSION: Mild degenerative changes, as described above. Electronically Signed: Angel Manley MD at 11:50 EST ,
--- NOTE | 2022-04-30 10:30 | RAD_ITS ---
STUDY: X-RAY CHEST REASON FOR EXAM: Female, 61 years old. Chest pain, hypoxia TECHNIQUE: Single AP portable view of the chest. COMPARISON: Comparison is made with prior study dated 03/14/2022. FINDINGS: EKG electrodes are seen. CHF with bilateral pleural effusions and bibasilar infiltrates and/or atelectasis worse at the left lung base. There is mild cardiac enlargement. Normal mediastinum and emily. Normal visualized pulmonary arteries. Normal visualized aortic arch and descending thoracic aorta. Normal visualized thoracic spine. Normal visualized ribs, clavicles, and shoulders. There is no demonstrated abnormality of the visualized soft tissue structures of the upper abdomen. RAD/Chest 1 View (Portable) IMPRESSION: Cardiomegaly and CHF. Bilateral pleural effusions with bibasilar atelectasis and/or infiltrates worse on the left side. Electronically Signed: Angel Manley MD at 10:42 EST ,
[2022-04-30 10:57] LABS: Hematocrit 27.3 % (37-47); Hemoglobin 8.1 g/dL (12.0-15.0); Mean Corp Hgb Conc 29.7 g/dL (32-36); Mean Corpuscular Hgb 26.7 pg (27.0-32.0); Mean Corpuscular Volume 90.1 fL (81-99); Mean Platelet Vol. 10.9 fl (6.2-12.0); Platelet Count 191 K/mm3 (150-450); RBC Distribution Width CV 17.2 % (11.6-14.6); RBC Distribution Width SD 56.9 fl (35.1-43.9); Red Blood Count 3.03 M/mm3 (4.2-5.4); White Blood Count 8.1 K/mm3 (4.4-11.0)
[2022-04-30 11:17] LABS: BNP,B-Type NATRIURETIC PEPTIDE 784.9 pg/mL (0-100)
[2022-04-30 11:18] LABS: Anion Gap 6 (5-15); BUN 54 mg/dL (7-18); BUN/Creat Ratio 13.6 RATIO (10-20); Calcium,Total 8.6 mg/dL (8.5-10.1); Chloride 112 mmol/L (98-107); Creatinine, Serum 3.98 mg/dL (0.55-1.02); EST Glomerular Filtration Rate 12 mL/min (>60); Est Glom Filt Rate - Afr Amer 15 mL/min (>60); Glucose 328 mg/dL (74-106); Potassium 6.6 mmol/L (3.5-5.1); Sodium Level 140 mmol/L (136-145); Troponin-I HS 14 pg/mL (3.0-54.0)
[2022-04-30] MEDS: Albuterol 2.5 MG/3 ML VIAL.NEB. INHALATION (11:27)
[2022-04-30] MEDS: Dextrose 50%-Water 25 GM/50 ML DISP.SYRIN IV (11:42)
[2022-04-30] MEDS: Furosemide 100 MG/10 ML Vial 80 MG IV (11:42)
[2022-04-30 13:08] LABS: CPK Total, Creatine Kinase 59 U/L (26-192)
[2022-04-30] MEDS: Sodium Polystyrene Sulfonate 15 GM/60 ML UDC 30 GM PO (13:52)
[2022-04-30] MEDS: cloNIDine HCl 0.1 MG Tablet 0.3 MG PO ×2 (14:08→23:16)
[2022-04-30] MEDS: Furosemide 100 MG/10 ML Vial 60 MG IV ×2 (14:12→23:17)
[2022-04-30] MEDS: 0.9% Saline Lock 10 ML Syringe IV (14:12)
--- NOTE | 2022-04-30 16:30 | NURSING ---
This RN took over care at this time.
[2022-04-30] MEDS: Acetaminophen 325 MG Tablet 650 MG PO ×2 (17:08→23:06)
[2022-04-30] MEDS: Insulin Lispro 100 UNIT/ML INSULN.PEN SC ×2 (17:09→23:45)
[2022-04-30 17:11] LABS: Anion Gap 7 (5-15); BUN 54 mg/dL (7-18); BUN/Creat Ratio 13.7 RATIO (10-20); Calcium,Total 8.6 mg/dL (8.5-10.1); Chloride 113 mmol/L (98-107); Creatinine, Serum 3.93 mg/dL (0.55-1.02); EST Glomerular Filtration Rate 12 mL/min (>60); Est Glom Filt Rate - Afr Amer 15 mL/min (>60); Estimated Creatinine Clearance 13.31 ml/min; Glucose 334 mg/dL (74-106); Potassium 5.4 mmol/L (3.5-5.1); Sodium Level 143 mmol/L (136-145)
[2022-04-30 17:25] LABS: Bedside Glucose 304 mg/dL (74-106)
--- NOTE | 2022-04-30 17:30 | PCM.HP.STD ---
HPI - General General Date of Admission: 04/30/22 Date of Service: 04/30/22 Chief Complaint: Epistaxis, hypoxia HPI Narrative LAYNE VINCENT, is a 61 F who presents to the emergency room at [facility] after being transferred from extended care facility due to a fall out of her wheelchair striking the bridge of her nose. Work-up in the emergency room revealed the patient be hypoxic on room air, chest x-ray was performed which showed evidence of congestive heart failure, labs were remarkable for an elevated potassium at 6.6, elevated creatinine at 3.93, elevated BUN of 54, glucose of 334, beta natruretic peptide of 784, and hemoglobin of 8.1. Patient's white blood cell count was normal, facial x-ray showed no evidence of any fractures. Patient required oxygen at 3 L/min via nasal cannula to maintain her pulse ox above 90%. Patient was admitted to PCU for acute intermediate congestive heart failure, hypoxia, and hyperkalemia. [facility] Medical History Anemia Bilateral pleural effusion Cardiology follow-up encounter Chronic pain syndrome CKD (chronic kidney disease) stage 4, GFR 15-29 ml/min Closed intertrochanteric fracture of left hip Diabetes Diabetes mellitus with hyperglycemia Dietary restriction Essential hypertension Excessive bleeding Fall Gastric reflux High cholesterol History of echocardiogram History of edema History of orthostatic hypotension History of stress test HLD (hyperlipidemia) HTN (hypertension) Hx of orthostatic hypotension Injury of head and neck Insulin dependent diabetes mellitus Low iron Malnutrition Migraine headache Migraine without aura Non-smoker Post-concussion syndrome Symptomatic anemia Syncope Transfusion of blood during current hospitalisation Type II diabetes mellitus Vertigo Vomiting Wears glasses Home Medications diltiazem HCl 180 mg capsule,extended release 24 hr 180 mg PO DAILY blood pressure 12/17/18 [History Last Taken 04/14/22] aspirin 81 mg chewable tablet 81 mg PO QHS HEART HEALTH 12/15/19 [History Last Taken 04/14/22] atorvastatin 40 mg tablet 40 mg PO QHS CHOLESTEROL 12/15/19 [History Last Taken 04/13/22] clonidine HCl 0.3 mg tablet 0.3 mg PO TID BLOOD PRESSURE 01/06/22 [History Last Taken 04/14/22] insulin lispro 100 unit/mL subcutaneous pen (Humalog KwikPen (U-100) Insulin) 8 unit subcut TIDCM diabetes 01/06/22 [History Last Taken 04/14/22] sertraline 50 mg tablet 50 mg PO QHS DEPRESSION 01/06/22 [History Last Taken 04/14/22] tramadol 50 mg tablet 50 mg PO BID PRN Pain 01/06/22 [History Last Taken 03/13/22] ferrous sulfate 325 mg (65 mg iron) tablet (FeroSul) 325 mg PO QHS SUPPLEMENT 02/13/22 [History Last Taken 04/14/22] polyethylene glycol 3350 17 gram oral powder packet 17 g PO DAILY PRN Constipation 02/13/22 [History Last Taken 03/13/22] pregabalin 75 mg capsule 75 mg PO BID PAIN 02/25/22 [History Last Taken 04/14/22] hydralazine 50 mg tablet 50 mg PO BID #0 tabs 04/17/22 [Rx Last Taken Unknown] insulin glargine-yfgn 100 unit/mL (3 mL) subcutaneous pen 10 unit (0.1 mL) subcut QHS #0 mL 04/17/22 [Rx Last Taken Unknown] multivitamin,tx-minerals 1 tab PO DAILY suppliment 04/30/22 [History Last Taken Unknown] omeprazole 20 mg capsule,delayed release 20 mg PO DAILY gerd 04/30/22 [History Last Taken Unknown] Allergy/AdvReac Type Severity Reaction Status Date / Time metformin AdvReac Diarrhea Verified 03/21/22 15:37 Family History Mother Hypertension Father Cancer lymphoma, leukemia Emphysema of lung Grandmother Diabetes Surgical History History of cholecystectomy History of cholecystectomy History of esophagogastroduodenoscopy (EGD) History of mandibular surgery Hx of colonoscopy Social History (Updated 04/30/22 @ 13:46 by Amy Kline) household members: significant other housing: long term Smoking Status: Never smoker alcohol intake: never substance use type: does not use ROS ROS Narrative Patient is a poor informant Constitutional Constitutional: Reports fatigue and weakness; Denies anorexia, change in weight, chills, fever(s) or night sweats Eyes Eyes: Denies blurry vision, change in vision, discharge from eye(s) or eye pain ENT HEENT: Reports other Details: Positive for nosebleed after striking nose today Cardiovascular Cardiovascular: Denies chest pain, claudication, edema, lightheadedness or palpitations Respiratory/Chest Respiratory/Chest: Denies cough, hemoptysis, productive cough, shortness of breath at rest or shortness of breath with exertion Gastrointestinal Gastrointestinal: Denies abdominal pain, constipation, diarrhea, hematemesis, hematochezia, melena, nausea or vomiting Genitourinary Genitourinary: Denies dysuria, hematuria, urinary frequency, urinary hesitancy, urinary incontinence or urinary urgency Musculoskeletal Musculoskeletal: Denies back pain, joint pain, joint stiffness, joint swelling, myalgias or neck pain Neurologic Neurologic: Denies abnormal gait, abnormal speech, dizziness, focal weakness, headache(s), loss of vision, numbness, other visual disturbances, paresthesias, syncope or tingling Psychiatric Psychiatric: Denies anxiety, cognitive impairment, depression, irritability, mood swings or suicidal ideation Endocrine Endocrinology: Denies change in body appearance, cold intolerance, excessive sweating, heat intolerance, polydipsia or polyuria Hematologic/Lymphatic Hematologic/Lymphatic: Denies none, anemia, easy bleeding, easy bruising or lymphadenopathy Allergic/Immunologic Allergic/Immunologic: Denies rhinitis, urticaria, eczemia or asthma Vital Signs Vital Signs Vital Signs: 04/30/22 09:17 04/30/22 09:19 04/30/22 09:33 Temperature 97.6 F L Temperature Source Temporal Pulse Rate 89 Respiratory Rate 18 Respiratory Effort Respiratory Depth Respiratory Pattern Blood Pressure 188/88 H Blood Pressure Mean 121 Blood Pressure Source Blood Pressure Position Blood Pressure Location Pulse Ox 88 90 96 Oxygen Delivery Method Room Air Nasal Cannula Nasal Cannula Oxygen Flow Rate (L/min) 2 3 04/30/22 09:34 04/30/22 11:28 04/30/22 11:55 Temperature Temperature Source Pulse Rate 86 83 Respiratory Rate 18 24 H Respiratory Effort Respiratory Depth Respiratory Pattern Normal Blood Pressure 178/81 H Blood Pressure Mean 113 Blood Pressure Source Blood Pressure Position Blood Pressure Location Pulse Ox 96 93 Oxygen Delivery Method Nasal Cannula Nasal Cannula Oxygen Flow Rate (L/min) 3 3 04/30/22 12:44 04/30/22 13:55 04/30/22 16:59 Temperature 98 F 97.7 F L Temperature Source Temporal Oral Pulse Rate 81 97 Respiratory Rate 20 H 18 Respiratory Effort Normal Non-Labored Respiratory Depth Normal Respiratory Pattern Normal Blood Pressure 174/78 H 169/94 H Blood Pressure Mean 110 119 Blood Pressure Source Monitor Blood Pressure Position Semi-Fowlers Blood Pressure Location Left Arm Pulse Ox 93 94 Oxygen Delivery Method Nasal Cannula Nasal Cannula Nasal Cannula Oxygen Flow Rate (L/min) 3 2 2 Weight Weight: 81.2 kg Body Mass Index (BMI) 29.8 Physical Exam Const alert Constitutional Narrative: Patient appears older than her stated age, she is frail General Appearance: cooperative HEENT normocephalic HEENT Narrative: There is some superficial bruising and excoriation over the bridge of her nose Eyes PERRL, EOMs intact bilaterally and conjunctivae normal Resp normal respiratory effort, no retractions and no use of accessory muscles Resp Narrative: Breath sounds are diminished over the bases bilaterally Auscultation: Negative for rhonchi or wheezes Cardio regular rate, regular rhythm, S1 normal heart sound, S2 normal heart sound and no murmurs GI normal to inspection, nondistended, normoactive bowel sounds, soft to palpation and non-tender Extremity Extremity Narrative: There is evidence of skin redness and excoriation in a circular pattern over the patient's lower legs bilaterally worse on the left, there is also some excoriation of the skin over the patient's left heel noted Neuro CN's II-XII intact bilaterally and moves all extremities Sensorium / Orientation: awake, alert, oriented to person and oriented to place Speech: speech normal Psych Psych Narrative: Patient's affect is flat Results Lab / Micro Data Result Diagrams: 04/30/22 10:45 04/30/22 16:43 Labs: Laboratory Results - last 24 hr 04/30/22 10:45: Sodium 140, Potassium 6.6 H*, Chloride 112 H, Carbon Dioxide 22.0, Anion Gap 6, BUN 54 H, Creatinine 3.98 H, Estim Creat Clear Calc 13.70, Est GFR (MDRD) Af Amer 15 L, Est GFR (MDRD) Non-Af 12 L, BUN/Creatinine Ratio 13.6, Glucose 328 H, Calcium 8.6, Troponin I High Sens 14 04/30/22 10:45: B-Natriuretic Peptide 784.9 H 04/30/22 10:45: WBC 8.1, RBC 3.03 L, Hgb 8.1 L, Hct 27.3 L, MCV 90.1, MCH 26.7 L, MCHC 29.7 L, RDW Std Deviation 56.9 H, RDW Coeff of Chris 17.2 H, Plt Count 191, MPV 10.9 04/30/22 10:45: Total Creatine Kinase 59 04/30/22 16:43: Sodium 143, Potassium 5.4 H, Chloride 113 H, Carbon Dioxide 23.0, Anion Gap 7, BUN 54 H, Creatinine 3.93 H, Estim Creat Clear Calc 13.31, Est GFR (MDRD) Af Amer 15 L, Est GFR (MDRD) Non-Af 12 L, BUN/Creatinine Ratio 13.7, Glucose 334 H, Calcium 8.6 04/30/22 17:03: POC Glucose 304 H Micro: Microbiology 04/30/22 10:30 Nasal Secretion SARS-CoV-2 & FLU Antigen (Rapid) - Final Radiology Impression Brain CT 04/30/22 09:58 IMPRESSION: Chronic involutional changes of the brain. Electronically Signed: Angel Manley MD at 11:48 EST Reading Location ID and State: [id number] / [employer] , Service support , Cervical Spine CT 04/30/22 09:58 IMPRESSION: Mild degenerative changes, as described above. Electronically Signed: Angel Manley MD at 11:50 EST Reading Location ID and State: [id number] [employer] , Service support , Facial/Sinus 04/30/22 09:58 IMPRESSION: Minimal degree of mucosal thickening at the base of both maxillary sinuses slightly worse on the left side. Electronically Signed: Angel Manley MD at 11:54 EST Reading Location ID and State: [id number] [employer] , Service support , Chest X-Ray 04/30/22 10:30 IMPRESSION: Cardiomegaly and CHF. Bilateral pleural effusions with bibasilar atelectasis and/or infiltrates worse on the left side. Electronically Signed: Angel Manley MD at 10:42 EST , Assessment & Plan Assessment/Plan (1) CHF exacerbation: PLAN: Plan 1. Acute on chronic congestive heart failure with intermediate ejection fraction-patient was admitted to PCU, she will be given IV Lasix and urinary output will be monitored #2 hyperkalemia-patient was given Kayexalate, labs will be repeated this afternoon and again tomorrow #3 type 2 diabetes-complicates care, medical course, recovery, and prognosis, fingerstick blood sugars will be monitored, sliding scale insulin will be provided #4 chronic kidney disease stage IV-labs will be monitored, I do not feel nephrology needs to see the patient at this time #5 anemia of chronic kidney disease-labs will be monitored, I will recheck her iron level tomorrow morning #6 generalized debility-patient will be seen by PT and OT #7 essential hypertension-patient remain on her present medications #8 hypoxia secondary to #1-pulse ox will be monitored #9 hyperlipidemia-patient will remain on a statin #10 epistaxis-secondary to nasal trauma, there is no evidence of nasal fracture noted at this time, patient is not currently having a nosebleed #11 chronic eczema of the left and right lower legs-patient will be seen by wound care, Adaptic will be applied to area in the meantime. Total clinical time spent by myself addressing the patient's medical issues, reviewing all of her data, and collaborating with patient's care team: 75 minutes Charges/Coding Visit Charges Inpatient E&M: 37367 Init Hosp L3
[2022-04-30] MEDS: hydrALAZINE 50 MG Tablet PO (23:16)
[2022-04-30] MEDS: Atorvastatin Calcium 40 MG Tablet PO (23:16)
[2022-04-30] MEDS: Sertraline 50 MG Tablet PO (23:16)
[2022-04-30] MEDS: Ferrous Sulfate 325 MG Tablet PO (23:17)
[2022-04-30] MEDS: Aspirin 81 MG TAB.CHEW PO (23:18)
[2022-04-30] MEDS: Heparin Injection (Vial) 5,000 UNIT/ML VIAL 5000 UNIT SC (23:19)
[2022-05-01] VITALS (11 sets, daily range): BP systolic 115–187; BP diastolic 59–85; PULSE 72–85; RESP 16–18; TEMP 36.4–36.9; O2SAT 95–100
[2022-05-01] MEDS: Pregabalin 75 MG Capsule PO ×3 (00:05→21:28)
[2022-05-01] MEDS: cloNIDine HCl 0.1 MG Tablet 0.3 MG PO ×3 (05:12→21:29)
[2022-05-01] MEDS: Furosemide 100 MG/10 ML Vial 60 MG IV ×3 (05:13→21:34)
[2022-05-01 06:20] LABS: Absolute Lymphocyte Count 1.23 X10^3/uL (0.83-4.51); Absolute Neutrophil Count 4.2 X10^3/uL (2.0-7.7); Basophil# 0.04 X10^3/uL; Basophil% 0.7 % (0-1); Eosinophil# 0.14 X10^3/uL; Eosinophils% 2.3 % (0-5); Hematocrit 24.5 % (37-47); Hemoglobin 7.4 g/dL (12.0-15.0); Lymphocyte # 1.23 X10^3/ul (0.83-4.51); Lymphocyte % 20.4 % (19-41); Mean Corp Hgb Conc 30.2 g/dL (32-36); Mean Corpuscular Hgb 26.6 pg (27.0-32.0); Mean Corpuscular Volume 88.1 fL (81-99); Mean Platelet Vol. 10.7 fl (6.2-12.0); Monocyte# 0.36 X10^3/uL; NRBC Flagged by Analyzer 0 % (0-5); Neutrophil # 4.23 X10^3/uL (2.7-7.7); Neutrophil % 70.3 % (47-70); Platelet Count 166 K/mm3 (150-450); RBC Distribution Width CV 16.9 % (11.6-14.6); RBC Distribution Width SD 54.7 fl (35.1-43.9); Red Blood Count 2.78 M/mm3 (4.2-5.4)
[2022-05-01 06:58] LABS: Anion Gap 4 (5-15); BUN 53 mg/dL (7-18); BUN/Creat Ratio 13.6 RATIO (10-20); Calcium,Total 8.1 mg/dL (8.5-10.1); Chloride 114 mmol/L (98-107); EST Glomerular Filtration Rate 13 mL/min (>60); Est Glom Filt Rate - Afr Amer 15 mL/min (>60); Estimated Creatinine Clearance 13.41 ml/min; Glucose 130 mg/dL (74-106); Iron 56 ug/dL (50-170); Iron Binding Capacity,Total 298 ug/dL (250-450); PERCENT IRON SATURATION 18.8 % (15.0-55.0); Potassium 4.6 mmol/L (3.5-5.1); Sodium Level 144 mmol/L (136-145)
[2022-05-01] MEDS: Pantoprazole Sodium 20 MG Tablet PO (09:12)
[2022-05-01] MEDS: Heparin Injection (Vial) 5,000 UNIT/ML VIAL 5000 UNIT SC ×2 (09:12→21:31)
[2022-05-01] MEDS: hydrALAZINE 50 MG Tablet PO (09:12)
[2022-05-01] MEDS: dilTIAZem CD 180 MG Capsule PO (09:12)
[2022-05-01] MEDS: HYDROcodone Bitartrate/Apap 5/325 Tablet PO (09:17)
--- NOTE | 2022-05-01 11:18 | WOUNDNOTE ---
wound photo: left heel
--- NOTE | 2022-05-01 11:18 | WOUNDNOTE ---
wound photo: bilateral lower legs
[2022-05-01 11:45] LABS: Bedside Glucose 165 mg/dL (74-106)
[2022-05-01] MEDS: Insulin Lispro 100 UNIT/ML INSULN.PEN SC ×2 (12:23→17:32)
[2022-05-01] MEDS: hydrALAZINE 50 MG Tablet 100 MG PO ×2 (13:15→21:29)
--- NOTE | 2022-05-01 15:36 | CASEMGMT ---
SW sent PT/OT to [facility] via [employer]. Heike Breaux WIRE STRAIGHTENING MACHINE OPERATOR [employer]
--- NOTE | 2022-05-01 16:37 | PCM.PN.HOSP ---
Subjective Subjective Patient was seen and examined today, currently she is on 2 L of nasal cannula oxygen and appears comfortable, creatinine is relatively unchanged today, hemoglobin was 7.4 today. Patient's iron level was normal. Objective Data Objective Data Vital Signs: Vital Signs Temp Pulse Resp BP Pulse Ox O2 Del Method O2 Flow Rate 98.1 F 72 18 115/59 L 98 Nasal Cannula 2 05/01/22 15:28 05/01/22 15:28 05/01/22 15:28 05/01/22 15:28 05/01/22 15:28 05/01/22 15:28 05/01/22 15:28 Oxygen Flow Rate (L/min) 2 Oxygen Delivery Method Nasal Cannula Weight: 81.2 kg Body Mass Index (BMI) 29.8 Intake & Output: Intake and Output for Last 24 Hours 04/29/22 04/30/22 05/01/22 23:59 23:59 23:59 Intake Total 660 / 660 Output Total 600 / 800 1675 / 1675 Balance -600 / -560 -1015 / -1015 Lab / Micro Data Result Diagrams: 05/01/22 05:39 05/01/22 05:39 Labs: Laboratory Results - last 24 hr 04/30/22 16:43: Sodium 143, Potassium 5.4 H, Chloride 113 H, Carbon Dioxide 23.0, Anion Gap 7, BUN 54 H, Creatinine 3.93 H, Estim Creat Clear Calc 13.31, Est GFR (MDRD) Af Amer 15 L, Est GFR (MDRD) Non-Af 12 L, BUN/Creatinine Ratio 13.7, Glucose 334 H, Calcium 8.6 04/30/22 17:03: POC Glucose 304 H 05/01/22 05:39: Sodium 144, Potassium 4.6, Chloride 114 H, Carbon Dioxide 26.0, Anion Gap 4 L, BUN 53 H, Creatinine 3.90 H, Estim Creat Clear Calc 13.41, Est GFR (MDRD) Af Amer 15 L, Est GFR (MDRD) Non-Af 13 L, BUN/Creatinine Ratio 13.6, Glucose 130 H, Calcium 8.1 L, Iron 56, TIBC 298, Iron Saturation 18.8 05/01/22 05:39: WBC 6.0, RBC 2.78 L, Hgb 7.4 L, Hct 24.5 L, MCV 88.1, MCH 26.6 L, MCHC 30.2 L, RDW Std Deviation 54.7 H, RDW Coeff of Chris 16.9 H, Plt Count 166, MPV 10.7, Immature Gran % (Auto) 0.300, Neut % (Auto) 70.3 H, Lymph % (Auto) 20.4, [place] % (Auto) 6.0, Eos % (Auto) 2.3, Baso % (Auto) 0.7, Absolute Neuts (auto) 4.2, Absolute Lymphs (auto) 1.23, Nucleated RBC % 0 05/01/22 11:15: POC Glucose 165 H Micro: Microbiology 04/30/22 10:30 Nasal Secretion SARS-CoV-2 & FLU Antigen (Rapid) - Final Physical Exam Const alert, oriented x3 and no apparent distress Constitutional Narrative: Patient appears in no distress, she appears older than her stated age General Appearance: cooperative, well kempt and well developed Orientation / Consciousness: awake, oriented to person and oriented to place HEENT normocephalic, head/scalp atraumatic and moist oral mucous membranes Eyes PERRL, EOMs intact bilaterally and conjunctivae normal Neck supple, no JVD, thyroid normal and no carotid bruits General: trachea midline Resp normal respiratory effort, no retractions and no use of accessory muscles Resp Narrative: Breath sounds are distant bilaterally Auscultation: Negative for rales, rhonchi or wheezes Cardio regular rate, regular rhythm, S1 normal heart sound, S2 normal heart sound, no murmurs, no rub and no gallops GI normal to inspection, nondistended, normoactive bowel sounds, soft to palpation, non-tender and non-distended Extremity Extremity Narrative: Legs are wrapped with Daniel wraps these were not removed for examination of the lower leg Skin Skin Narrative: Daniel wraps are present over the lower legs, these were not removed for examination of the areas of eczema on her lower leg Neuro oriented x3, CN's II-XII intact bilaterally, moves all extremities, no focal motor deficits and no sensory deficits noted Sensorium / Orientation: awake and alert Speech: speech normal Psych Psych Narrative: Patient's affect is flat Assessment & Plan Assessment/Plan (1) CHF exacerbation: PLAN: Plan 1. Acute on chronic congestive heart failure with intermediate ejection fraction-continue IV 6 at this time #2 hyperkalemia-corrected at this time, patient's labs will be rechecked tomorrow #3 type 2 diabetes-complicates care, medical course, recovery, and prognosis, fingerstick blood sugars will be monitored, sliding scale insulin will be provided #4 chronic kidney disease stage IV-labs will be monitored, I do not feel nephrology needs to see the patient at this time #5 anemia of chronic kidney disease-labs will be monitored #6 generalized debility-patient will be seen by PT and OT #7 essential hypertension-patient remain on her present medications #8 hypoxia secondary to #1-pulse ox will be monitored #9 hyperlipidemia-patient will remain on a statin #10 epistaxis-secondary to nasal trauma, there is no evidence of nasal fracture noted at this time, patient is not currently having a nosebleed #11 chronic eczema of the left and right lower legs-patient is being seen by wound care Total clinical time spent by myself addressing the patient's medical issues, reviewing all of her data, and collaborating with patient's care team: 37 minutes Charges/Coding Visit Charges Inpatient E&M: 18970 Subs Hosp L2
[2022-05-01 16:50] LABS: Bedside Glucose 223 mg/dL (74-106)
[2022-05-01] MEDS: Insulin Lispro 100 UNIT/ML INSULN.PEN 8 UNIT SC (17:31)
[2022-05-01] MEDS: Aspirin 81 MG TAB.CHEW PO (21:28)
[2022-05-01] MEDS: Atorvastatin Calcium 40 MG Tablet PO (21:30)
[2022-05-01] MEDS: Ferrous Sulfate 325 MG Tablet PO (21:30)
[2022-05-01] MEDS: Sertraline 50 MG Tablet PO (21:30)
[2022-05-01] MEDS: 0.9% Saline Lock 10 ML Syringe IV (21:47)
[2022-05-02] VITALS (12 sets, daily range): BP systolic 136–165; BP diastolic 60–71; PULSE 70–78; RESP 16–18; TEMP 36.6–36.9; O2SAT 89–98
[2022-05-02 01:16] LABS: Bedside Glucose 127 mg/dL (74-106)
[2022-05-02] MEDS: 0.9% Saline Lock 10 ML Syringe IV ×3 (02:12→22:07)
[2022-05-02] MEDS: Ondansetron 4 MG/2 ML Vial IV (02:12)
[2022-05-02 05:37] LABS: Absolute Lymphocyte Count 1.11 X10^3/uL (0.83-4.51); Absolute Neutrophil Count 3.2 X10^3/uL (2.0-7.7); Basophil# 0.04 X10^3/uL; Basophil% 0.8 % (0-1); Eosinophil# 0.22 X10^3/uL; Eosinophils% 4.5 % (0-5); Hematocrit 24.3 % (37-47); Hemoglobin 7.3 g/dL (12.0-15.0); Lymphocyte # 1.11 X10^3/ul (0.83-4.51); Lymphocyte % 22.7 % (19-41); Mean Corpuscular Hgb 26.7 pg (27.0-32.0); Mean Platelet Vol. 10.8 fl (6.2-12.0); Monocyte# 0.32 X10^3/uL; Monocyte% 6.5 % (0-10); NRBC Flagged by Analyzer 0 % (0-5); Neutrophil # 3.18 X10^3/uL (2.7-7.7); Neutrophil % 65.1 % (47-70); Platelet Count 170 K/mm3 (150-450); RBC Distribution Width CV 16.8 % (11.6-14.6); RBC Distribution Width SD 54.8 fl (35.1-43.9); Red Blood Count 2.73 M/mm3 (4.2-5.4); White Blood Count 4.9 K/mm3 (4.4-11.0)
[2022-05-02] MEDS: Furosemide 100 MG/10 ML Vial 60 MG IV ×3 (06:04→22:03)
[2022-05-02] MEDS: cloNIDine HCl 0.1 MG Tablet 0.3 MG PO ×3 (06:04→21:59)
[2022-05-02] MEDS: hydrALAZINE 50 MG Tablet 100 MG PO ×3 (06:04→21:59)
[2022-05-02 06:13] LABS: Anion Gap 10 (5-15); BUN 57 mg/dL (7-18); BUN/Creat Ratio 14.4 RATIO (10-20); Calcium,Total 7.9 mg/dL (8.5-10.1); Chloride 109 mmol/L (98-107); Creatinine, Serum 3.97 mg/dL (0.55-1.02); EST Glomerular Filtration Rate 12 mL/min (>60); Est Glom Filt Rate - Afr Amer 15 mL/min (>60); Estimated Creatinine Clearance 13.18 ml/min; Glucose 203 mg/dL (74-106); Potassium 4.2 mmol/L (3.5-5.1); Sodium Level 142 mmol/L (136-145)
[2022-05-02] MEDS: Insulin Lispro 100 UNIT/ML INSULN.PEN 8 UNIT SC ×3 (08:07→18:00)
[2022-05-02] MEDS: Insulin Lispro 100 UNIT/ML INSULN.PEN SC ×2 (08:08→11:33)
[2022-05-02 08:31] LABS: Bedside Glucose 224 mg/dL (74-106)
[2022-05-02] MEDS: Pantoprazole Sodium 20 MG Tablet PO (09:14)
[2022-05-02] MEDS: dilTIAZem CD 180 MG Capsule PO (09:14)
[2022-05-02] MEDS: Pregabalin 75 MG Capsule PO ×2 (09:14→21:58)
[2022-05-02] MEDS: Heparin Injection (Vial) 5,000 UNIT/ML VIAL 5000 UNIT SC ×2 (09:17→22:00)
--- NOTE | 2022-05-02 09:18 | CASEMGMT ---
ASHANTI requested Ann at [place] start pre-cert. Plan: d/c back to [place] pending pre-cert. Heike Breaux MSW INDEPENDENT DISTRIBUTOR
[2022-05-02 11:55] LABS: Bedside Glucose 223 mg/dL (74-106)
--- NOTE | 2022-05-02 14:21 | CASEMGMT ---
SW was informed by therapy and PRECISION GRINDER that patient does not want to go back to [facility]. SW went back to patient's room. SW introduced self and role at [facility]. SW asked patient about not wanting to return to [facility]. Patient said she will just go back to [facility], that is where her boyfriend wants her to go. SW attempted to give patient a list of jail facility providers including quality and resource use data and consistent with patient?s preferred geographic region, medical needs, and insurance network were provided from the [facility] [facility]. Patient declined stating she will return to [facility]. SW told patient if she is going to change facilities SW needs to know right away so SW can start making referrals. Patient again said she will return to [facility]. SW asked patient why she does not want to return to [facility] and patient really did not have an answer. Plan: d/c back to [facility] pending insurance approval. Heike Breaux SENIOR GIS ANALYST SABRINA
--- NOTE | 2022-05-02 15:17 | PN.HOSP_ITS ---
Subjective Subjective She was seen and examined today, she is currently on room air, patient told me she wanted to go home rather than go back to a long term for physical therapy states that she is unable to walk and is unwilling to get out of bed. Patient will need to go back to a nursing facility for more skilled care. Objective Data Objective Data Vital Signs: Vital Signs Temp Pulse Resp BP Pulse Ox O2 Del Method O2 Flow Rate 98.3 F 70 18 136/60 H 95 Room Air 2 05/02/22 13:40 05/02/22 13:42 05/02/22 13:40 05/02/22 13:40 05/02/22 13:40 05/02/22 13:40 05/02/22 07:31 Oxygen Flow Rate (L/min) 2 Oxygen Delivery Method Room Air Weight: 81.2 kg Body Mass Index (BMI) 29.8 Intake & Output: Intake and Output for Last 24 Hours 04/30/22 05/01/22 05/02/22 23:59 23:59 23:59 Intake Total 1020 / 1020 500 / 500 Output Total 600 / 800 1875 / 1875 600 / 600 Balance -600 / -560 -855 / -855 -100 / -100 Lab / Micro Data Result Diagrams: 05/02/22 05:01 05/02/22 05:01 Labs: Laboratory Results - last 24 hr 05/01/22 16:29: POC Glucose 223 H 05/01/22 21:27: POC Glucose 127 H 05/02/22 05:01: WBC 4.9, RBC 2.73 L, Hgb 7.3 L, Hct 24.3 L, MCV 89.0, MCH 26.7 L , MCHC 30.0 L, RDW Std Deviation 54.8 H, RDW Coeff of Chris 16.8 H, Plt Count 170, MPV 10.8, Immature Gran % (Auto) 0.400, Neut % (Auto) 65.1, Lymph % (Auto) 22.7, [place] % (Auto) 6.5, Eos % (Auto) 4.5, Baso % (Auto) 0.8, Absolute Neuts (auto) 3.2, Absolute Lymphs (auto) 1.11, Nucleated RBC % 0 05/02/22 05:01: Sodium 142, Potassium 4.2, Chloride 109 H, Carbon Dioxide 23.0, Anion Gap 10, BUN 57 H, Creatinine 3.97 H, Estim Creat Clear Calc 13.18, Est GFR (MDRD) Af Amer 15 L, Est GFR (MDRD) Non-Af 12 L, BUN/Creatinine Ratio 14.4, Glucose 203 H, Calcium 7.9 L 05/02/22 07:53: POC Glucose 224 H 05/02/22 11:30: POC Glucose 223 H Micro: Microbiology 04/30/22 10:30 Nasal Secretion SARS-CoV-2 & FLU Antigen (Rapid) - Final Physical Exam Narrative alert, oriented x3 and no apparent distress Constitutional Narrative: Patient appears in no distress, she appears older than her stated age General Appearance: cooperative, well kempt and well developed Orientation / Consciousness: awake, oriented to person and oriented to place HEENT normocephalic, head/scalp atraumatic and moist oral mucous membranes Eyes PERRL, EOMs intact bilaterally and conjunctivae normal Neck supple, no JVD, thyroid normal and no carotid bruits General: trachea midline Resp normal respiratory effort, no retractions and no use of accessory muscles Resp Narrative: Breath sounds are distant bilaterally Auscultation: Negative for rales, rhonchi or wheezes Cardio regular rate, regular rhythm, S1 normal heart sound, S2 normal heart sound, no murmurs, no rub and no gallops GI normal to inspection, nondistended, normoactive bowel sounds, soft to palpation, non-tender and non-distended Extremity Extremity Narrative: Legs are wrapped with Daniel wraps these were not removed for examination of the lower leg Skin Skin Narrative: Daniel wraps are present over the lower legs, these were not removed for exam ination of the areas of eczema on her lower leg Neuro oriented x3, CN's II-XII intact bilaterally, moves all extremities, no focal motor deficits and no sensory deficits noted Sensorium / Orientation: awake and alert Speech: speech normal Psych Psych Narrative: Patient's affect is flat Assessment & Plan Assessment/Plan (1) CHF exacerbation: PLAN: Plan 1. Acute on chronic congestive heart failure with intermediate ejection fraction-continue IV Lasix at this time #2 hyperkalemia-corrected at this time, patient's labs will be rechecked tomorro w #3 type 2 diabetes-complicates care, medical course, recovery, and prognosis, fingerstick blood sugars will be monitored, sliding scale insulin will be provided #4 chronic kidney disease stage IV-labs will be monitored, I do not feel nephrology needs to see the patient at this time, patient's BMP will be repeated tomorrow #5 anemia of chronic kidney disease-labs will be monitored #6 generalized debility-patient is being seen by PT and OT #7 essential hypertension-patient remain on her present medications #8 hypoxia secondary to #1-resolved at this time, patient is on room air, pulse ox will be monitored #9 hyperlipidemia-patient will remain on a statin #10 epistaxis-secondary to nasal trauma, there is no evidence of nasal fracture noted at this time, patient is not currently having a nosebleed #11 chronic stasis dermatitis of the left and right lower legs-patient is being seen by wound care nurse Total clinical time spent by myself addressing the patient's medical issues, r eviewing all of her data, and collaborating with patient's care team: 38 minutes Charges/Coding Visit Charges Inpatient E&M: 60717 Subs Hosp L2
[2022-05-02 16:35] LABS: Bedside Glucose 91 mg/dL (74-106)
[2022-05-02] MEDS: HYDROcodone Bitartrate/Apap 5/325 Tablet PO (17:59)
[2022-05-02] MEDS: Sertraline 50 MG Tablet PO (21:58)
[2022-05-02] MEDS: Atorvastatin Calcium 40 MG Tablet PO (21:58)
[2022-05-02] MEDS: Aspirin 81 MG TAB.CHEW PO (21:58)
[2022-05-02] MEDS: Ferrous Sulfate 325 MG Tablet PO (21:58)
[2022-05-02 23:55] LABS: Bedside Glucose 61 mg/dL (74-106)
[2022-05-02 23:55] LABS: Bedside Glucose 73 mg/dL (74-106)
[2022-05-02 23:55] LABS: Bedside Glucose 137 mg/dL (74-106)
[2022-05-03] VITALS (8 sets, daily range): BP systolic 143–172; BP diastolic 59–106; PULSE 66–76; RESP 16–18; TEMP 36.5–36.7; O2SAT 93–97
[2022-05-03] MEDS: hydrALAZINE 50 MG Tablet 100 MG PO ×3 (05:37→21:00)
[2022-05-03] MEDS: Furosemide 100 MG/10 ML Vial 60 MG IV ×2 (05:37→15:00)
[2022-05-03] MEDS: 0.9% Saline Lock 10 ML Syringe IV ×3 (05:37→15:04)
[2022-05-03] MEDS: cloNIDine HCl 0.1 MG Tablet 0.3 MG PO ×3 (05:38→21:00)
[2022-05-03] MEDS: Insulin Lispro 100 UNIT/ML INSULN.PEN SC ×4 (06:04→21:00)
[2022-05-03 07:05] LABS: Bedside Glucose 227 mg/dL (74-106)
[2022-05-03 07:21] LABS: Anion Gap 11 (5-15); BUN 60 mg/dL (7-18); BUN/Creat Ratio 14.6 RATIO (10-20); Calcium,Total 8.1 mg/dL (8.5-10.1); Chloride 107 mmol/L (98-107); Creatinine, Serum 4.12 mg/dL (0.55-1.02); EST Glomerular Filtration Rate 12 mL/min (>60); Est Glom Filt Rate - Afr Amer 14 mL/min (>60); Glucose 227 mg/dL (74-106); Potassium 4.2 mmol/L (3.5-5.1); Sodium Level 140 mmol/L (136-145)
[2022-05-03] MEDS: Pantoprazole Sodium 20 MG Tablet PO (10:15)
[2022-05-03] MEDS: dilTIAZem CD 180 MG Capsule PO (10:15)
[2022-05-03] MEDS: Heparin Injection (Vial) 5,000 UNIT/ML VIAL 5000 UNIT SC ×2 (10:15→21:00)
[2022-05-03] MEDS: Pregabalin 75 MG Capsule PO ×2 (10:19→21:00)
[2022-05-03 12:05] LABS: Bedside Glucose 188 mg/dL (74-106)
[2022-05-03 16:45] LABS: Bedside Glucose 238 mg/dL (74-106)
[2022-05-03] MEDS: Aspirin 81 MG TAB.CHEW PO (21:00)
[2022-05-03] MEDS: Ferrous Sulfate 325 MG Tablet PO (21:00)
[2022-05-03] MEDS: Atorvastatin Calcium 40 MG Tablet PO (21:00)
[2022-05-03] MEDS: Sertraline 50 MG Tablet PO (21:00)
[2022-05-03 22:30] LABS: Bedside Glucose 171 mg/dL (74-106)
[2022-05-04] VITALS (9 sets, daily range): BP systolic 105–176; BP diastolic 62–75; PULSE 63–77; RESP 16–18; TEMP 36.3–36.8; O2SAT 94–96
[2022-05-04] MEDS: HYDROcodone Bitartrate/Apap 5/325 Tablet PO (04:33)
[2022-05-04] MEDS: cloNIDine HCl 0.1 MG Tablet 0.3 MG PO ×3 (05:12→20:23)
[2022-05-04] MEDS: hydrALAZINE 50 MG Tablet 100 MG PO ×2 (05:12→20:23)
[2022-05-04] MEDS: Ondansetron 4 MG/2 ML Vial IV (05:19)
[2022-05-04] MEDS: 0.9% Saline Lock 10 ML Syringe IV (05:19)
[2022-05-04 06:28] LABS: Anion Gap 12 (5-15); BUN 63 mg/dL (7-18); BUN/Creat Ratio 15.4 RATIO (10-20); Calcium,Total 8.5 mg/dL (8.5-10.1); Chloride 104 mmol/L (98-107); EST Glomerular Filtration Rate 12 mL/min (>60); Est Glom Filt Rate - Afr Amer 14 mL/min (>60); Estimated Creatinine Clearance 12.76 ml/min; Glucose 188 mg/dL (74-106); Potassium 4.5 mmol/L (3.5-5.1); Sodium Level 139 mmol/L (136-145)
[2022-05-04] MEDS: Insulin Lispro 100 UNIT/ML INSULN.PEN SC ×4 (06:46→20:24)
[2022-05-04 07:15] LABS: Bedside Glucose 204 mg/dL (74-106)
[2022-05-04] MEDS: dilTIAZem CD 180 MG Capsule PO (08:48)
[2022-05-04] MEDS: Furosemide 20 MG Tablet 60 MG PO ×2 (08:48→17:22)
[2022-05-04] MEDS: Pantoprazole Sodium 20 MG Tablet PO (08:48)
[2022-05-04] MEDS: Heparin Injection (Vial) 5,000 UNIT/ML VIAL 5000 UNIT SC ×2 (08:48→20:23)
[2022-05-04] MEDS: Pregabalin 75 MG Capsule PO ×2 (08:53→20:23)
[2022-05-04 12:06] LABS: Bedside Glucose 224 mg/dL (74-106)
--- NOTE | 2022-05-04 12:12 | CASEMGMT ---
Social Work Per Della Kate needs updated PT/OT notes to be able to obtain pre-cert. This social insurance specialist sent PT/OT notes via [facility]. Will continue to follow. PLAN: Return to [facility] pending pre-cert. Macy ROY, SABRINA-S
--- NOTE | 2022-05-04 13:02 | CASEMGMT ---
Social Work Notified via [facility] that pre-cert was obtained and able to accept patient today. Dr. Walker updated on above information and confirms that patient is medically cleared for discharge today. This social services director met with patient in room. This social services director updated patient on above information. Patient continues to be agreeable to discharge plan. Patient request for this social services director to set up transportation via wheelchair van for patient and aware of possible cost. This social services director inquired about person to contact in regards to patient discharge. Patient declined for this social services director to call support person, patient fiance, patient states plan to notify fiance. Patient denies any further questions. PLAN: [facility] INSPECTOR EXHAUST EMISSIONS, LOSS CONTROL REPRESENTATIVE-S
--- NOTE | 2022-05-04 14:10 | PCM.TXEXTCAR ---
Diet Diet Order/Speech Therapy: 04/30/22 13:13 Diet: Cardiac: Calorie-Controlled Food consistency:: Regular Liquid Consistency:: Regular/Thin How many daily calories?: 1800 calorie Routine Orders/Code Status Routine Lab Work: - (Fingerstick blood sugars AC nightly, sliding scale insulin with Humalog subcu: 200-250: 5 units, 251-300: 8 units, 301-350: 12 units, 351-400: 15 units) Code Status: Full Code Wound(s) rt rick/lower leg: Wound Type: stasis dermatitis Dressing Change: dry dressings left rick/lower leg: Wound Type: stasis dermatitis Dressing Change: dry dressings left heel: Wound Type: Neuropathic/Diabetic Foot Ulcer Dressing Change: AntiMicrobial (Aquacel AG, etc) Therapies Weight Bearing: Weight bearing as tolerated Problem/Diagnosis (1) CHF exacerbation: Status: Chronic Code(s): I50.9 - Heart failure, unspecified Plan 1. Acute on chronic congestive heart failure with intermediate ejection fraction-continue IV Lasix at this time #2 hyperkalemia-corrected at this time, patient's labs will be rechecked tomorrow #3 type 2 diabetes-complicates care, medical course, recovery, and prognosis, fingerstick blood sugars will be monitored, sliding scale insulin will be provided #4 chronic kidney disease stage IV-labs will be monitored, I do not feel nephrology needs to see the patient at this time, patient's BMP will be repeated tomorrow #5 anemia of chronic kidney disease-labs will be monitored #6 generalized debility-patient is being seen by PT and OT #7 essential hypertension-patient remain on her present medications #8 hypoxia secondary to #1-resolved at this time, patient is on room air, pulse ox will be monitored #9 hyperlipidemia-patient will remain on a statin #10 epistaxis-secondary to nasal trauma, there is no evidence of nasal fracture noted at this time, patient is not currently having a nosebleed #11 chronic stasis dermatitis of the left and right lower legs-patient is being seen by wound care nurse Total clinical time spent by myself addressing the patient's medical issues, reviewing all of her data, and collaborating with patient's care team: 38 minutes Allergies/Procedures Done in Hospital Allergies metformin Adverse Reaction (Verified 03/21/22 15:37) Diarrhea Procedures: None Type of Care/Length of Stay Estimated LOS: Convalescent Care Less Than 30 days Type of Care Needed: Skilled Rehab Potential: Good Prognosis: Good Additional Orders/Day of Discharge H&P will serve as current which was dated: 04/30/22 Day of Discharge: 05/04/22 Dietary and Speech Recommendations Dietitian Recommendations/Changes: Continue 1800 Cardiac diet to manage medical conditions. Discharge Plan Admission Admit Date/Time: 04/30/22 12:21 Primary Reason for Your Visit: Congestive heart failure, hypoxia Attending Provider: Ravi Walker Primary Care Provider: Dennys Baez Consulting Providers: Go Matos Discharge Orders/Prescriptions Prescriptions: New diltiazem HCl 180 mg Capsule,Extended Release 24hr 180 mg PO DAILY Qty: 0 0RF hydralazine 50 mg Tablet 100 mg PO TID Qty: 0 0RF pregabalin 75 mg Capsule 75 mg PO BID Qty: 10 0RF hydrocodone-acetaminophen 5-325 mg Tablet 1 tab PO Q6H PRN PRN (Reason: Pain Score 4-10) 5 Days Qty: 10 0RF furosemide 20 mg Tablet 60 mg PO BIDLX Qty: 0 0RF Continued atorvastatin 40 MG tablet 40 mg PO QHS aspirin 81 MG tablet,chewable 81 mg PO QHS clonidine HCl 0.3 MG tablet 0.3 mg PO TID insulin lispro [Humalog KwikPen Insulin] 100 unit/mL insulin pen 8 unit subcut TIDCM Rx Instructions: with meals sertraline 50 mg tablet 50 mg PO QHS ferrous sulfate [FeroSul] 325 mg (65 mg iron) tablet 325 mg PO QHS polyethylene glycol 3350 17 gram powder in packet 17 g PO DAILY PRN (Reason: Constipation) insulin glargine-yfgn 100 unit/mL (3 mL) Insulin Pen 10 unit subcut QHS Qty: 0 0RF omeprazole 20 mg Capsule,Delayed Release(Dr/Ec) 20 mg PO DAILY multivitamin,tx-minerals Tablet 1 tab PO DAILY Discontinued diltiazem HCl 180 MG capsule 180 mg PO DAILY Label Comments: PT UNSURE OF STRENGTH HAS BEEN ON THE 180. PER PHARMACY DR BAEZ'S OFFICE CALLED IN A NEW SCRIPT ON 03/06/22. tramadol 50 mg tablet 50 mg PO BID PRN (Reason: Pain) pregabalin 75 mg capsule 75 mg PO BID hydralazine 50 mg Tablet 50 mg PO BID Qty: 0 0RF Referrals / Follow Up: Dennys Baez MD [Primary Care Provider] - Disposition Disposition (needs filled in before D/C Order can be placed): [facility]
--- NOTE | 2022-05-04 14:20 | PCM.DC.SUM ---
Providers Date of Admission: 04/30/22 Date of Discharge: 05/04/22 Primary Care Physician: Dr. Dennys Serrano MD Consultations 04/30/22 14:37 Consult: Onc/Wound/restorer paper and prints Routine Comment: Reason for Consult:: bilat legs Reason For Visit: HYPOXIA Diagnosis Discharge Diagnosis (1) CHF exacerbation: Status: Chronic Code(s): I50.9 - Heart failure, unspecified Plan 1. Acute on chronic congestive heart failure with intermediate ejection fraction-continue IV Lasix at this time #2 hyperkalemia-corrected at this time, patient's labs will be rechecked tomorrow #3 type 2 diabetes-complicates care, medical course, recovery, and prognosis, fingerstick blood sugars will be monitored, sliding scale insulin will be provided #4 chronic kidney disease stage IV-labs will be monitored, I do not feel nephrology needs to see the patient at this time, patient's BMP will be repeated tomorrow #5 anemia of chronic kidney disease-labs will be monitored #6 generalized debility-patient is being seen by PT and OT #7 essential hypertension-patient remain on her present medications #8 hypoxia secondary to #1-resolved at this time, patient is on room air, pulse ox will be monitored #9 hyperlipidemia-patient will remain on a statin #10 epistaxis-secondary to nasal trauma, there is no evidence of nasal fracture noted at this time, patient is not currently having a nosebleed #11 chronic stasis dermatitis of the left and right lower legs-patient is being seen by wound care nurse Total clinical time spent by myself addressing the patient's medical issues, reviewing all of her data, and collaborating with patient's care team: 38 minutes Medications at Discharge Home Medications aspirin 81 mg chewable tablet 81 mg PO QHS HEART HEALTH 12/15/19 atorvastatin 40 mg tablet 40 mg PO QHS CHOLESTEROL 12/15/19 clonidine HCl 0.3 mg tablet 0.3 mg PO TID BLOOD PRESSURE 01/06/22 insulin lispro 100 unit/mL subcutaneous pen (Humalog KwikPen (U-100) Insulin) 8 unit subcut TIDCM diabetes 01/06/22 sertraline 50 mg tablet 50 mg PO QHS DEPRESSION 01/06/22 ferrous sulfate 325 mg (65 mg iron) tablet (FeroSul) 325 mg PO QHS SUPPLEMENT 11/15/22 polyethylene glycol 3350 17 gram oral powder packet 17 g PO DAILY PRN Constipation 02/13/22 insulin glargine-yfgn 100 unit/mL (3 mL) subcutaneous pen 10 unit (0.1 mL) subcut QHS #0 mL 04/17/22 multivitamin,tx-minerals 1 tab PO DAILY suppliment 04/30/22 omeprazole 20 mg capsule,delayed release 20 mg PO DAILY gerd 04/30/22 diltiazem HCl 180 mg capsule,extended release 24 hr 180 mg PO DAILY #0 caps 05/04/22 furosemide 20 mg tablet 60 mg PO BIDLX #0 tabs 05/04/22 hydralazine 50 mg tablet 100 mg PO TID #0 tabs 05/04/22 hydrocodone-acetaminophen 5-325mg 5mg-325mg 1 tab PO Q6H PRN PRN Pain Score 4-10 5 days #10 tabs 05/04/22 pregabalin 75 mg capsule 75 mg PO BID #10 caps 05/04/22 Hospital Course Operations None Procedures None Summary of Care Provided Minutes Spent on Discharge: 33 Hospital Course: 61-year-old white female was seen in the emergency room at [facility] after being transferred from a local extended care facility at which she was doing skilled care due to shortness of breath. Work-up in the emergency room included labs which showed elevated creatinine in keeping with her chronic renal failure, chest x-ray showed changes indicative of congestive heart failure, the patient requires supplemental oxygen to maintain her pulse ox above 90%. Patient was admitted to PCU, pulse ox was monitored, she was placed on IV Lasix and underwent diuresis. Patient responded well to her diuresis, blood sugars were monitored, and PT and OT saw the patient and recommended that she go back to the skilled facility for more short-term rehab services. On 05/04/2022, patient was seen and examined: On examination she appeared in good health and spirits, she does not appear to be in any distress. Vital signs as documented. Skin warm and dry and without overt rashes. Neck without JVD, thyroid appears normal, trachea is midline, neck is supple. Lungs clear, normal air movement was noted. Heart exam notable for regular rhythm, normal sounds and absence of murmurs, rubs or gallops. Abdomen unremarkable and without evidence of organomegaly, masses, or abdominal aortic enlargement, bowel sounds are present in all 4 quadrants, no abdominal tenderness was noted. Extremities nonedematous, no cyanosis was noted, no clubbing was noted. Neuro: Cranial nerves II through XII are grossly intact, no focal motor deficits were noted, sensation to light touch and pinprick is intact, motor exam 5/5 throughout. Psych: Patient is alert and oriented x3, she does not appear anxious or depressed, she does not appear agitated. On 05/04/2022, patient was seen and examined and felt to be stable for discharge to an extended care facility for further rehab services. Weight / BMI Weight Weight: 81.2 kg Body Mass Index (BMI) 29.8 ABG / Lab / Microbiology Data Result Diagrams: 05/02/22 05:01 05/04/22 04:46 Laboratory: Laboratory Results - last 24 hr 05/03/22 16:23: POC Glucose 238 H 05/03/22 20:57: POC Glucose 171 H 05/04/22 04:46: Sodium 139, Potassium 4.5, Chloride 104, Carbon Dioxide 23.0, Anion Gap 12, BUN 63 H, Creatinine 4.10 H, Estim Creat Clear Calc 12.76, Est GFR (MDRD) Af Amer 14 L, Est GFR (MDRD) Non-Af 12 L, BUN/Creatinine Ratio 15.4, Glucose 188 H, Calcium 8.5 05/04/22 06:45: POC Glucose 204 H 05/04/22 11:43: POC Glucose 224 H Microbiology: Microbiology 04/30/22 10:30 Nasal Secretion SARS-CoV-2 & FLU Antigen (Rapid) - Final Meaningful Use Info Meaningful Use Diagnoses (Choose all that apply): CHF CHF AMANDA/ARB ordered at discharge?: No Reason AMANDA/ARB not ordered?: Worsening renal disease Documented LVEF (%): 45 Discharge Plan Admission Admit Date/Time: 04/30/22 12:21 Primary Reason for Your Visit: Congestive heart failure, hypoxia Attending Provider: Ravi Walker Primary Care Provider: Dennys Serrano Consulting Providers: Go Matos Discharge Orders/Prescriptions Prescriptions: New diltiazem HCl 180 mg Capsule,Extended Release 24hr 180 mg PO DAILY Qty: 0 0RF hydralazine 50 mg Tablet 100 mg PO TID Qty: 0 0RF pregabalin 75 mg Capsule 75 mg PO BID Qty: 10 0RF hydrocodone-acetaminophen 5-325 mg Tablet 1 tab PO Q6H PRN PRN (Reason: Pain Score 4-10) 5 Days Qty: 10 0RF furosemide 20 mg Tablet 60 mg PO BIDLX Qty: 0 0RF Continued atorvastatin 40 MG tablet 40 mg PO QHS aspirin 81 MG tablet,chewable 81 mg PO QHS clonidine HCl 0.3 MG tablet 0.3 mg PO TID insulin lispro [Humalog KwikPen Insulin] 100 unit/mL insulin pen 8 unit subcut TIDCM Rx Instructions: with meals sertraline 50 mg tablet 50 mg PO QHS ferrous sulfate [FeroSul] 325 mg (65 mg iron) tablet 325 mg PO QHS polyethylene glycol 3350 17 gram powder in packet 17 g PO DAILY PRN (Reason: Constipation) insulin glargine-yfgn 100 unit/mL (3 mL) Insulin Pen 10 unit subcut QHS Qty: 0 0RF omeprazole 20 mg Capsule,Delayed Release(Dr/Ec) 20 mg PO DAILY multivitamin,tx-minerals Tablet 1 tab PO DAILY Discontinued diltiazem HCl 180 MG capsule 180 mg PO DAILY Label Comments: PT UNSURE OF STRENGTH HAS BEEN ON THE 180. PER PHARMACY DR SERRANO'S OFFICE CALLED IN A NEW SCRIPT ON 03/06/22. tramadol 50 mg tablet 50 mg PO BID PRN (Reason: Pain) pregabalin 75 mg capsule 75 mg PO BID hydralazine 50 mg Tablet 50 mg PO BID Qty: 0 0RF Referrals / Follow Up: Dennys Serrano MD [Primary Care Provider] - Disposition Disposition (needs filled in before D/C Order can be placed): [facility] Charges/Coding Visit Charges Inpatient E&M: 93585 Disch Hosp >30min
--- NOTE | 2022-05-04 15:35 | CASEMGMT ---
Social Work Discharge entered. Transportation set up through [facility] for 7:30pm as that is the soonest they can picker and packer patient. Transportation form placed with patient discharge information along with signed medication list and signed scripts. This sr. social media & mobile manager updated [facility] via [employer] of above information. COVID test results, transfer to extended care form, and signed medication list/scripts sent to [facility]. PLAN: [facility], intermediate level of care. Macy ROY, SABRINA-S
[2022-05-04 16:45] LABS: Bedside Glucose 188 mg/dL (74-106)
--- NOTE | 2022-05-04 18:09 | NURSING ---
This RN called report to [facility] Shilpi Hull LPN at 1808.
[2022-05-04] MEDS: Ferrous Sulfate 325 MG Tablet PO (20:23)
[2022-05-04] MEDS: Sertraline 50 MG Tablet PO (20:23)
[2022-05-04] MEDS: Atorvastatin Calcium 40 MG Tablet PO (20:23)
[2022-05-04] MEDS: Aspirin 81 MG TAB.CHEW PO (20:36)
--- NOTE | 2022-05-04 20:54 | NURSING ---
pt to exit via with belongings and [facility]. report previously call by day shift RN
[2022-05-04 22:35] LABS: Bedside Glucose 213 mg/dL (74-106)
== END 2022-05-04 20:47 | disposition skilled nursing facility (03) | DRG 291 ==
LOC: ED 12:30 → PCU 13:22
PROVIDERS: Admitting Provider Internal Medicine; Emergency Provider Emergency Medicine; PCP Family Medicine; Visit Provider Internal Medicine
DX: I13.0 Hypertensive heart and chronic kidney disease with heart failure and stage 1 through stage 4 chronic kidney disease, or unspecified chronic kidney disease (principal); I50.33 Acute on chronic diastolic (congestive) heart failure; N18.4 Chronic kidney disease, stage 4 (severe); L97.509 Non-pressure chronic ulcer of other part of unspecified foot with unspecified severity; D63.1 Anemia in chronic kidney disease; E11.22 Type 2 diabetes mellitus with diabetic chronic kidney disease; E11.42 Type 2 diabetes mellitus with diabetic polyneuropathy; D64.9 Anemia, unspecified; E11.59 Type 2 diabetes mellitus with other circulatory complications; E11.620 Type 2 diabetes mellitus with diabetic dermatitis; Z79.4 Long term (current) use of insulin; E11.621 Type 2 diabetes mellitus with foot ulcer; E78.5 Hyperlipidemia, unspecified; E87.5 Hyperkalemia; I87.2 Venous insufficiency (chronic) (peripheral); R53.81 Other malaise; R04.0 Epistaxis; Z79.82 Long term (current) use of aspirin; G89.4 Chronic pain syndrome; Z82.5 Family history of asthma and other chronic lower respiratory diseases; R09.02 Hypoxemia
CPT/HCPCS: 36415; 70450; 70486; 71045; 72125; 80048; 82550; 82962; 83540; 83550; 83880; 84484; 85025; 85027; 87426; 87428; 93005; 94640; 97110; 97162; 97166; 97530; 97535; 99252; 99285; A4216; G0463; J1940; J2405

== ENCOUNTER → 2022-05-25 | Outpatient (CLI) | payer MEDICARE, MEDICAID, SELFPAY ==
--- NOTE | 2022-05-25 12:35 | VDUE_ITS ---
Reason For Study: CKD Right Arm Left Arm Right Cephalic Vein at the wrist measures Left Cephalic Vein at the wrist measures 0.11 x 0.11 cm. 0.15 x 0.16 cm. Right Cephalic Vein in the forearm measures Left Cephalic Vein in the forearm measures 0.08 x 0.08 cm. 0.15 x 0.15 cm. Right Cephalic Vein below antecub measures Left Cephalic Vein below antecub measures 0.12 x 0.14 cm. 0.17 x 0.19 cm. Cephalic vein above antecube not visualized Left Cephalic Vein above antecub measures due to vessel size. 0.15 x 0.15 cm. Right Cephalic Vein mid bicep measures 0.11 x Left Cephalic Vein at mid bicep measures 0.12 cm. 0.15 x 0.16 cm. Right Cephalic Vein at the shoulder measures Left Cephalic Vein at the shoulder measures 0.17 x 0.16 cm. 0.16 x 0.16 cm. Right Basilic Vein at the origin measures Basilic vein at origin measures 0.17 x 0.19 0.17 x 0.17 cm. cm. Right Basilic Vein mid bicep measures 0.18 x Basilic vein at bicep measures 0.16 x 0.16 0.19 cm. cm. Right Basilic Vein above antecub measures Basilic vein above antecub measures 0.12 x 0.15 x 0.15 cm. 0.12 cm. Right Brachial artery measures 0.41 x 0.41 cm Left Brachial artery measures 0.38 x 0.37 cm with a velocity of 110.5 cm/sec. with a velocity of 141.9 cm/sec. Right Radial artery measures 0.21 x 0.20 cm Left Radial artery measures 0.20 x 0.20 cm with a velocity of 144.1 cm/sec. with a velocity of 144.1 cm/sec. VL/Dialysis Vein Map PRE-OP BILAT Interpretation Summary Right upper extremity cephalic vein appears to be diminutive throughout and can not be visualized proximal to the antecubital space for short distance due to diminutive size. Right upper arm basilic vein is very small with dimensions as noted. Left upper extremity cephalic vein is patent and compressible although it is di ameter is small Left upper arm basilic vein is patent and compressible although has a small anoop meter for the positioning of the vein Bilateral radial and brachial arteries are patent with appropriate diameters al though flow rates appear to be slightly elevated undetermined significance. Ordering Physician: Cisco Krueger Referring Physician: Dennys Serrano Performed By: Jennifer Khanna RVT ???
== END | disposition home or self-care (01) ==
LOC: CVS 10:31
PROVIDERS: PCP Family Medicine; Visit Provider Internal Medicine Nephrology
DX: Z01.818 Encounter for other preprocedural examination (principal); N18.5 Chronic kidney disease, stage 5
CPT/HCPCS: 93985

== ENCOUNTER 2022-05-30 11:22 | Day surgery (SDC) | payer MEDICARE, MEDICAID, SELFPAY ==
[2022-05-30] VITALS (15 sets, daily range): BP systolic 118–175; BP diastolic 49–68; PULSE 64–72; RESP 16–18; TEMP 36–36.7; O2SAT 92–98; BMI 25.7
--- NOTE | 2022-05-30 11:55 | HP.PCM_ITS ---
History and Physical Date of Admission: 05/30/22 Date of Service:? 05/24/22 MR#: [id number] Acct: [id number] Name:LAYNE MAYO Rep #: [id number] : 1960 ? ? Provider: Dr. Drea Marie MD Age/Sex:? 61/F ? ? [facility] Status: Signed Intake Vital Signs ? 05/01/2310:48 05/24/2312:58 Height 5 ft 4.96 in 5 ft 5 in Weight: ? 160 lb BMI ? 26.6 BP ? 155/67 H Blood Pressure Location ? Lt brachial Position ? Sitting Respiration ? 17 Pulse ? 77 Pulse Source ? Monitor Temp ? 97.7 F L Temp Source ? Temporal Pulse Oximetry (%) ? 95 Oxygen Delivery Method ? room air Intake Visit Reasons:?Consult Dialysis Catheters Chief Complaint: Consult Dialysis Catheters [employer] Required: No Is patient in pain?: No Allergies metformin Adverse Reaction (Verified 05/24/22 13:59) Diarrhea Medications aspirin 81 mg chewable tablet 81 mg PO QHS HEART HEALTH 12/15/19 [History Confirmed 05/25/22] atorvastatin 40 mg tablet 40 mg PO QHS CHOLESTEROL 12/15/19 [History Confirmed 05/25/22] clonidine HCl 0.3 mg tablet 0.3 mg PO TID BLOOD PRESSURE 01/06/22 [History Confirmed 05/25/22] insulin lispro 100 unit/mL subcutaneous pen (Humalog KwikPen (U-100) Insulin) 8 unit subcut TIDCM diabetes 01/06/22 [History Confirmed 05/25/22] sertraline 50 mg tablet 50 mg PO QHS DEPRESSION 01/06/22 [History Confirmed 05/25/22] ferrous sulfate 325 mg (65 mg iron) tablet (FeroSul) 325 mg PO QHS SUPPLEMENT 02/13/22 [History Confirmed 05/25/22] polyethylene glycol 3350 17 gram oral powder packet 17 g PO DAILY PRN Constipation 02/13/22 [History Confirmed 05/25/22] insulin glargine-yfgn 100 unit/mL (3 mL) subcutaneous pen 10 unit (0.1 mL) subcut QHS #0 mL 04/17/22 [Rx Confirmed 05/25/22] multivitamin,tx-minerals 1 tab PO DAILY suppliment 04/30/22 [History Confirmed 05/25/22] omeprazole 20 mg capsule,delayed release 20 mg PO DAILY gerd 04/30/22 [History C onfirmed 05/25/22] diltiazem HCl 180 mg capsule,extended release 24 hr 180 mg PO DAILY #0 caps 05/04/22 [Rx Confirmed 05/25/22] furosemide 20 mg tablet 60 mg PO BIDLX #0 tabs 05/04/22 [Rx Confirmed 05/25/22] hydralazine 50 mg tablet 100 mg PO TID #0 tabs 05/04/22 [Rx Confirmed 05/25/22] pregabalin 75 mg capsule 75 mg PO BID #10 caps 05/04/22 [Rx Confirmed 05/25/22] calcium acetate(phosphat bind) 667 mg capsule 667 mg PO TID 05/25/22 [History Confirmed 05/25/22] PFSH Medical History? Anemia Bilateral pleural effusion Cardiology follow-up encounter Chronic pain syndrome CKD (chronic kidney disease) stage 4, GFR 15-29 ml/min Closed intertrochanteric fracture of left hip Diabetes Diabetes mellitus with hyperglycemia Dietary restriction Essential hypertension Excessive bleeding Fall Gastric reflux High cholesterol History of echocardiogram History of edema History of orthostatic hypotension History of stress test HLD (hyperlipidemia) HTN (hypertension) Hx of orthostatic hypotension Injury of head and neck Insulin dependent diabetes mellitus Low iron Malnutrition Migraine headache Migraine without aura Non-smoker Post-concussion syndrome Symptomatic anemia Syncope Transfusion of blood during current hospitalisation Type II diabetes mellitus Vertigo Vomiting Wears glasses Surgical History?(Updated 05/24/22 @ 13:58 by Trina Saturday) History of cholecystectomy History of esophagogastroduodenoscopy (EGD) History of mandibular surgery Hx of colonoscopy Family History?(Updated 05/24/22 @ 13:58 by Trina Saturday) Mother HypertensionFather Cancer ?? ? lymphoma, leukemia Emphysema of lung HypertensionGrandmother Diabetes CVA (cerebral vascular accident) Social History? household members:? significant other housing:? [facility] Smoking Status:? Never smoker alcohol intake:? never substance use type:? does not use HPI HPI HPI: 61-year-old female presents for placement of tunneled dialysis catheter due to acute on chronic kidney disease.? [facility] Patient's never had previous dialysis catheters or dialysis.? Patient also make an appoint with Dr. Krueger for fistula planning. ROS General General: No weight change, appetite, fatigue, colon cancer, breast cancer or weakness HEENT HEENT: Yes difficulty swallowing; No eye injury, eye surgery, swollen glands or hoarseness Endo Endocrine: Yes diabetes mellitus; No thyroid disease, thyroid cancer, Hair loss, heat intolerance or cold intolerance Skin Skin: No rash or changing moles Musc Musculoskeletal: No back problems, arthritis, rheumatoid arthritis, gout or joint pain Cardio Cardiovascular: Yes high blood pressure; No murmur, pacemaker, heart disease, atrial fibrillation, heart attack, heart stent, palpitations, shortness of breat with exertion or chest pain Psych Psychiatric: No depression, anxiety or hearing voices Resp Respiratory: No shortness of breath, No sleep apnea, No cough, No COPD, No asthma, No emphysema and No wheezing Gastro Gastrointestinal: No abdominal pain, Yes nausea or vomiting, Yes diarrhea, No constipation, No blood in stool, No acid reflux, No hemorrhoids, No ulcers, No gallbladder problem and No black,tarry stools Jalil Hematologic: No blood thinners, No blood disorders, No bleeding, No anemia and No blood clots Neuro Neurologic: No system reviewed and no additional complaints, except as documented, No as per HPI, No abnormal gait, No abnormal hearing, No abnormal movements, No abnormal speech, No behavioral changes, No burning sensations, No confusion, No convulsions, No disequilibrium, No dizziness, No localized weakness, No frequent falls, No headache(s), No lack of coordination, No loss of vision, No memory loss, No numbness, No other visual disturbances, No radicular pain, No restless legs, No sensory deficit, No syncope, No tingling, No tremor(s), No weakness and No other Exam Const General: cooperative and comfortable HENMT Other: resolving ecchymosis to the left side of her face from a previous fall. Neck Neck: supple Chest Other: Palpation of bilateral upper chest normal Resp Effort & Inspection: normal respiratory effort Cardio Rate: regular rate Skin General: no rashes or lesions noted and ecchymosis (Resolving left face) Neuro General: patient oriented x3 Assessment and Plan Assessment and Plan (1) CKD (chronic kidney disease): ?Status:?Chronic (2) Acute kidney injury superimposed on chronic kidney disease: ?Status:?Chronic Plan Discussed with patient with plan for right possible left tunneled dialysis catheter.? Discussed the surgery including risk not limited to bleeding, infection, malfunction of the catheter and anesthesia.? Patient no further question this time was agreeable to proceed.? We will have patient hold her aspirin prior to procedure. Patient will follow-up with Dr. Krueger for further fistula planning. Drea Marie M.D. Pager: [phone] [facility] [address] [place] [address], [address] [place] [address] Office: [phone] Coding Level of Care Code Off vis,new,level 3 Diagnoses CKD (chronic kidney disease)? N18.9 Acute kidney injury superimposed on chronic kidney disease? N17.9; N18.9 05/28/22 1047 <Electronically signed by Drea Marie MD> Date Drea Marie MD
[2022-05-30] MEDS: Cefazolin 2 GM in 0.9% Normal Saline 100 ML IV (12:34)
[2022-05-30] MEDS: Bupiv/Epi 0.25% 30 ML Vial (12:48)
[2022-05-30] MEDS: Lidocaine 1% (30 ml sdv) 30 ML Vial (12:48)
[2022-05-30] MEDS: Heparin 10,000 UNITS/10 ML Vial 10000 UNITS (13:00)
--- NOTE | 2022-05-30 13:06 | OP.PCM_ITS ---
Report of Operation Date of Procedure: 05/30/22 Pre-Operative Diagnosis: Acute on chronic kidney disease, need for dialysis acc ess Post-Operative Diagnosis: Same Surgery/Procedure Performed:: Placement of right IJ tunneled dialysis catheter Surgeon: Drea Marie Type of Anesthesia: Local MAC Anesthesiologist: Mu Piper Special Medications: Ancef 2 g IV x1 Specimen's removed: None Estimated Blood Loss (mL): < 10 cc Description of Procedure: After informed consent was given, the patient was brought to the operating room and placed in the supine position. Appropriate time out protocol was followed. She was then given IV conscious sedation for anesthesia. The patient's right upper chest and neck were then prepped with a surgical skin preparation and sterile surgical drapes were placed. After proper landmarks were ascertained, the skin at the upper [right] chest area was then infiltrated with 1:1 mixture of 1% lidocaine and 0.25% maricaine with epi. A needle trocar was then inserted into the right internal jugular vein with ultrasound guidance-multiple vessels were viewed with u/s and the right IJ was chosen-- and there was good aspiration of venous blood. A wire was then threaded into the needle trocar and this was visualized under fluoroscopy to ensure that the wire was in the superior vena cava. Once this was done, then the needle trocar was removed. A small incision was made with an 11 blade knife at the wire entrance site. The dilator x2 with the introducer sheath attached was then placed over the wire into the right internal jugular vein via the Seldinger technique and this was visualized under fluoroscopy. Next the introducer and sheath were in proper position as visualized by fluoroscopy. The location of the cuffed was estimated on the skin, an incision was made with a 15 blade scalpel. The 14.5 Fr x 19 cm Palindrome dual lumen (Lot [id number] reference [id number]) was tunneled from the chest incision to the right neck incision. The sheath was removed. The catheter was placed through the introducer and was positioned with its tip at the junction of the superior vena cava and the right atrium as visualized under fluoroscopy. The cuff of the catheter was in the subcutaneous tissue. The catheter flushed and mac well with saline. Catheter was also flushed with 1.6 cc of 1-10,000 of heparin. Hemostasis was assured. Silver dressing was placed at the catheter exit site. Catheter was sutured with 3-0 nylon sutures. The neck incision was sutured with interrupted 3-0 Vicryl interrupted sutures x2 and Steri-Strips were placed. A large OpSite was placed over the catheter site and a small OpSite over the neck incision. The patient tolerated the procedure well. Grafts/Implants Used: 14.5 Fr x 19 cm Palindrome dual lumen (Lot [id number] reference [id number] Complications none
--- NOTE | 2022-05-30 13:10 | DCINST_ITS ---
Discharge Instructions Diet Discharge Diet: - (previous) Activity Discharge Activity: May Not Shower (do not get dialysis catheter/exit site wet--if showers then place bag over to keep dry) Dressing / Incision Call your doctor if your incision/area has: Sudden Increased Bleeding, Increased Pain/ Swelling and Increased Redness Remove Dressing in: do not remove dressing (until dialysis) Follow Up Care Please Follow Up With: Drea Marie MD When: PRN or if needs removal Test Results: Test results from this visit will be discussed in further detail at your follow- up appointment, if applicable. Discharge Plan Admission Attending Provider: Drea Marie Primary Care Provider: Dennys Serrano Discharge Orders/Prescriptions Prescriptions: New tramadol 50 mg tablet 50 mg PO Q6H PRN (Reason: pain) 3 Days Qty: 5 0RF Continued atorvastatin 40 MG tablet 40 mg PO QHS aspirin 81 MG tablet,chewable 81 mg PO QHS clonidine HCl 0.3 MG tablet 0.3 mg PO TID insulin lispro [Humalog KwikPen Insulin] 100 unit/mL insulin pen 8 unit subcut TIDCM Rx Instructions: with meals sertraline 50 mg tablet 50 mg PO QHS ferrous sulfate [FeroSul] 325 mg (65 mg iron) tablet 325 mg PO QHS polyethylene glycol 3350 17 gram powder in packet 17 g PO DAILY PRN (Reason: Constipation) insulin glargine-yfgn 100 unit/mL (3 mL) Insulin Pen 10 unit subcut QHS Qty: 0 0RF omeprazole 20 mg Capsule,Delayed Release(Dr/Ec) 20 mg PO DAILY multivitamin,tx-minerals Tablet 1 tab PO DAILY diltiazem HCl 180 mg Capsule,Extended Release 24hr 180 mg PO DAILY Qty: 0 0RF hydralazine 50 mg Tablet 100 mg PO TID Qty: 0 0RF pregabalin 75 mg Capsule 75 mg PO BID Qty: 10 0RF furosemide 20 mg Tablet 60 mg PO BIDLX Qty: 0 0RF calcium acetate(phosphat bind) 667 mg Capsule 667 mg PO TID Referrals / Follow Up: Dennys Serrano MD [Primary Care Provider] - Disposition Disposition (needs filled in before D/C Order can be placed): Home, Self Care
--- NOTE | 2022-05-30 13:20 | RAD_ITS ---
STUDY: X-RAY CHEST REASON FOR EXAM: Female, 61 years old. dialysis catheter -- pacu TECHNIQUE: AP COMPARISON: 04/30/2022 FINDINGS: EKG leads project over the chest. Right jugular dialysis catheter is in place with tip overlying the lower SVC. Coarsened interstitial lung markings are identified with asymmetric opacities in the left more than right mid and lower lungs but overall improved since the prior study. The pleural effusions have resolved. There is mild cardiac enlargement. Normal mediastinum and emily. Normal visualized pulmonary arteries. There is atherosclerotic calcification of the aortic arch with tortuosity. No acute bony process. There is no demonstrated abnormality of the visualized soft tissue structures of the upper abdomen. RAD/CXR for Line Placement IMPRESSION: 1. Favorable change. Nearly resolved pleural effusions and pulmonary infiltrates/edema. Electronically Signed: Gerard Levy (Brooks), at 13:40 EST ,
[2022-05-30 14:26] LABS: Bedside Glucose 292 mg/dL (74-106)
== END 2022-05-30 15:29 | disposition home or self-care (01) ==
LOC: SDC 11:28 → AC 11:28
PROVIDERS: PCP Family Medicine; Referring Provider Surgery; Visit Provider Surgery
PROC: (CPT 36558; principal; 2022-05-30 12:20)
DX: Z45.2 Encounter for adjustment and management of vascular access device (principal); N17.9 Acute kidney failure, unspecified; Z99.2 Dependence on renal dialysis; I27.20 Pulmonary hypertension, unspecified; E11.22 Type 2 diabetes mellitus with diabetic chronic kidney disease; N18.4 Chronic kidney disease, stage 4 (severe); Z79.4 Long term (current) use of insulin; D63.1 Anemia in chronic kidney disease; I12.9 Hypertensive chronic kidney disease with stage 1 through stage 4 chronic kidney disease, or unspecified chronic kidney disease; E78.00 Pure hypercholesterolemia, unspecified; Z79.82 Long term (current) use of aspirin; Z79.899 Other long term (current) drug therapy
CPT/HCPCS: 36558; 00532; 71045; 77001; 82962; J7040; C1750; J2405

== ENCOUNTER → 2022-05-30 | Outpatient (CLI) | payer MEDICARE, MEDICAID, SELFPAY | END | disposition home or self-care (01) | LOC: POLAB3 15:34 → LAB.FUTURE 15:49 | PROVIDERS: PCP Family Medicine; Visit Provider Internal Medicine Nephrology | DX: N18.6 End stage renal disease (principal) ==

== ENCOUNTER → 2022-06-08 | Outpatient (CLI) | payer MEDICARE, MEDICAID, SELFPAY ==
[2022-06-08 16:27] LABS: Hepatitis B Surface Antigen Non-Reactive (Nonreactive)
== END | disposition home or self-care (01) ==
PROVIDERS: PCP Family Medicine; Visit Provider Internal Medicine Nephrology
DX: N18.6 End stage renal disease (principal)
CPT/HCPCS: 87340

== ENCOUNTER 2022-07-18 05:33 | Day surgery (SDC) | payer MEDICARE, MEDICAID, SELFPAY ==
--- NOTE | 2022-07-13 11:54 | EKG12_ITS ---
Test Reason : PRE OP Blood Pressure : / mmHG Vent. Rate : 056 BPM Atrial Rate : 056 BPM P-R Int : 154 ms QRS Dur : 092 ms QT Int : 456 ms P-R-T Axes : 063 053 062 degrees QTc Int : 440 ms Sinus bradycardia Otherwise normal ECG Confirmed by STACY BHAKTA ([id number]), editor greeting card RAFI DOMINGO ([id number]) on 07/17/2022 8:03:39 AM Referred By: Cisco Krueger Confirmed By:STACY BHAKTA
[2022-07-13 12:40] LABS: Hematocrit 30.6 % (37-47); Hemoglobin 9.4 g/dL (12.0-15.0); Mean Corp Hgb Conc 30.7 g/dL (32-36); Mean Corpuscular Hgb 28.8 pg (27.0-32.0); Mean Corpuscular Volume 93.9 fL (81-99); Mean Platelet Vol. 10.6 fl (6.2-12.0); Platelet Count 125 K/mm3 (150-450); RBC Distribution Width CV 15.6 % (11.6-14.6); RBC Distribution Width SD 53.9 fl (35.1-43.9); Red Blood Count 3.26 M/mm3 (4.2-5.4); White Blood Count 5.4 K/mm3 (4.4-11.0)
[2022-07-13 13:24] LABS: Anion Gap 3 (5-15); BUN 22 mg/dL (7-18); Calcium,Total 8.7 mg/dL (8.5-10.1); Chloride 101 mmol/L (98-107); Creatinine, Serum 3.16 mg/dL (0.55-1.02); EST Glomerular Filtration Rate 16 mL/min (>60); Est Glom Filt Rate - Afr Amer 19 mL/min (>60); Glucose 284 mg/dL (74-106); Potassium 3.8 mmol/L (3.5-5.1); Sodium Level 134 mmol/L (136-145)
[2022-07-18] VITALS (11 sets, daily range): BP systolic 101–133; BP diastolic 58–72; PULSE 62–66; RESP 15–18; TEMP 36.1–36.6; O2SAT 92–99; BMI 23.4
[2022-07-18 06:10] LABS: Mean Corp Hgb Conc 31.3 g/dL (32-36); Mean Corpuscular Hgb 28.9 pg (27.0-32.0); Mean Corpuscular Volume 92.5 fL (81-99); Mean Platelet Vol. 11.1 fl (6.2-12.0); Platelet Count 162 K/mm3 (150-450); RBC Distribution Width CV 15.2 % (11.6-14.6); RBC Distribution Width SD 51.1 fl (35.1-43.9); Red Blood Count 3.46 M/mm3 (4.2-5.4); White Blood Count 4.9 K/mm3 (4.4-11.0)
[2022-07-18 06:25] LABS: Bedside Glucose 295 mg/dL (74-106)
[2022-07-18 06:26] LABS: Anion Gap 3 (5-15); BUN 21 mg/dL (7-18); BUN/Creat Ratio 6.4 RATIO (10-20); Calcium,Total 8.8 mg/dL (8.5-10.1); Chloride 100 mmol/L (98-107); Creatinine, Serum 3.28 mg/dL (0.55-1.02); EST Glomerular Filtration Rate 15 mL/min (>60); Est Glom Filt Rate - Afr Amer 19 mL/min (>60); Glucose 327 mg/dL (74-106); Potassium 4.2 mmol/L (3.5-5.1); Sodium Level 134 mmol/L (136-145)
[2022-07-18] MEDS: Insulin Lispro 100 UNIT/ML INSULN.PEN 6 UNIT SC (06:45)
--- NOTE | 2022-07-18 06:46 | PCM.HP.BLA ---
History and Physical Date of Admission: 07/18/22 Chief Complaint: Consult fistula Allergies metformin Adverse Reaction (Verified 06/14/22 09:18) Diarrhea PFSH Medical History? Accidental fall Anemia Arthritis Bilateral pleural effusion Cardiology follow-up encounter Chronic pain syndrome CKD (chronic kidney disease) stage 4, GFR 15-29 ml/min Closed intertrochanteric fracture of left hip Depression Diabetes Diabetes mellitus with hyperglycemia Dietary restriction Essential hypertension Excessive bleeding Gastric reflux High cholesterol History of echocardiogram History of edema History of orthostatic hypotension History of renal dialysis History of stress test HLD (hyperlipidemia) HTN (hypertension) Hx of orthostatic hypotension Injury of head and neck Insulin dependent diabetes mellitus Low iron Malnutrition Migraine headache Migraine without aura Non-smoker Post-concussion syndrome Symptomatic anemia Syncope Transfusion of blood during current hospitalisation Type II diabetes mellitus Uses wheelchair Vertigo Vomiting Wears glasses Surgical History?(Updated 06/14/22 @ 09:27 by Amy Freeman) History of cholecystectomy History of esophagogastroduodenoscopy (EGD) History of mandibular surgery Hx of colonoscopy S/P dialysis catheter insertion Family History? Mother HypertensionFather Cancer ?? ? lymphoma, leukemia Emphysema of lung HypertensionGrandmother Diabetes CVA (cerebral vascular accident) Social History? household members:? significant other housing:? care home Smoking Status:? Never smoker alcohol intake:? never substance use type:? does not use HPI HPI Surgical H&P: Yes HPI: Patient is a 61 y/o F I am following for an update history and physical for an upcoming fistula creation. Patient was scheduled in May for a fistula creation however she became hypoglycemic and had to eat the morning of her surgery. She denies any changes in her medications. She denies any recent illnesses or hospitalizations since her last visit. She notes that she worked with her PCP to develop a plan of how to keep her glucose stable when she is not eating or drinking anything. Patient notes she is on dialysis T, Th and Sat via right tunneled dialysis catheter. Patient's previous history per Dr. Krueger: 61-year-old female.? On May 30, 2022 Dr. Drea Marie placed a right internal jugular tunneled dialysis catheter to assist with hemodialysis.? That point the patient was diagnosed acute on chronic kidney disease.? She is now referred for arteriovenous hemodialysis fistula creation.? Her history includes type 2 diabetes mellitus and essential hypertension and chronic congestive heart failure and hyperlipidemia in addition to her chronic renal disease and soft tissue wounds.? Her chest x-ray of May 30, 2022 demonstrates a nicely placed right internal jugular tunneled dialysis catheter.? I have personally reviewed those images.? As noted below the patient had bilateral upper extremity vein mapping on May 25, 2022.? I have personally reviewed those images.? Unfortunately bilateral upper extremity cephalic and basilic veins are quite diminutive. By patient report as an outpatient she is to start hemodialysis tomorrow.? Her plant operator helper is Dr. Aubree Terry.? The patient is right arm dominant. She states she does not know the etiology to her renal failure.? She denies myocardial infarction or stroke.? As noted she is diabetic. May 25, 2022 Reason For Study: CKD Right Arm ? Left Arm Right Cephalic Vein at the wrist measures ? Left Cephalic Vein at the wrist measures 0.11 x 0.11 cm. ? 0.15 x 0.16 cm. Right Cephalic Vein in the forearm measures ? Left Cephalic Vein in the forearm measures 0.08 x 0.08 cm. ? 0.15 x 0.15 cm. Right Cephalic Vein below antecub measures? Left Cephalic Vein below antecub measures 0.12 x 0.14 cm. ? 0.17 x 0.19 cm. Cephalic vein above antecube not visualized ? Left Cephalic Vein above antecub measures due to vessel size. ? 0.15 x 0.15 cm. Right Cephalic Vein mid bicep measures 0.11 x ? Left Cephalic Vein at mid bicep measures 0.12 cm.? 0.15 x 0.16 cm. Right Cephalic Vein at the shoulder measures? Left Cephalic Vein at the shoulder measures 0.17 x 0.16 cm. ? 0.16 x 0.16 cm. Right Basilic Vein at the origin measures ? Basilic vein at origin measures 0.17 x 0.19 0.17 x 0.17 cm. ? cm. Right Basilic Vein mid bicep measures 0.18 x? Basilic vein at bicep measures 0.16 x 0.16 0.19 cm.? cm. Right Basilic Vein above antecub measures ? Basilic vein above antecub measures 0.12 x 0.15 x 0.15 cm. ? 0.12 cm. Right Brachial artery measures 0.41 x 0.41 cm ? Left Brachial artery measures 0.38 x 0.37 cm with a velocity of 110.5 cm/sec.? with a velocity of 141.9 cm/sec. Right Radial artery measures 0.21 x 0.20 cm ? Left Radial artery measures 0.20 x 0.20 cm with a velocity of 144.1 cm/sec.? with a velocity of 144.1 cm/sec. VL/Dialysis Vein Map PRE-OP BILAT Interpretation Summary Right upper extremity cephalic vein appears to be diminutive throughout and cannot be visualized proximal to the antecubital space for short distance due to diminutive size. Right upper arm basilic vein is very small with dimensions as noted. Left upper extremity cephalic vein is patent and compressible although it is diameter is small Left upper arm basilic vein is patent and compressible although has a small diameter for the positioning of the vein Bilateral radial and brachial arteries are patent with appropriate diameters although flow rates appear to be slightly elevated undetermined significance. ? ? Ordering Physician: Cisco Krueger Referring Physician: Dennys Serrano Performed By: Jennifer Khanna RVT General General: No weight change, appetite, fatigue, colon cancer, breast cancer or weakness HEENT HEENT: No difficulty swallowing, eye injury, eye surgery, swollen glands or hoarseness Endo Endocrine: No thyroid disease, diabetes mellitus, thyroid cancer, Hair loss, heat intolerance or cold intolerance Skin Skin: No rash or changing moles Breast Breast: No left breast lump, right breast lump, nipple discharge, breast pain, abnormal mammogram, abnormal US or breast enlargement Musc Musculoskeletal: No back problems, arthritis, rheumatoid arthritis, gout or joint pain Cardio Cardiovascular: No murmur, pacemaker, heart disease, atrial fibrillation, high blood pressure, heart attack, heart stent, palpitations, shortness of breat with exertion or chest pain Psych Psychiatric: No depression, anxiety or hearing voices Resp Respiratory: No shortness of breath, No sleep apnea, No cough, No COPD, No asthma, No emphysema and No wheezing Gastro Gastrointestinal: No abdominal pain, No nausea or vomiting, No diarrhea, No constipation, No blood in stool, No acid reflux, No hemorrhoids, No ulcers, No gallbladder problem and No black,tarry stools Jalil Hematologic: No blood thinners, No blood disorders, No bleeding, No anemia and No blood clots Neuro Neurologic: No system reviewed and no additional complaints, except as documented, No as per HPI, No abnormal gait, No abnormal hearing, No abnormal movements, No abnormal speech, No behavioral changes, No burning sensations, No confusion, No convulsions, No disequilibrium, No dizziness, No localized weakness, No frequent falls, No headache(s), No lack of coordination, No loss of vision, No memory loss, No numbness, No other visual disturbances, No radicular pain, No restless legs, No sensory deficit, No syncope, No tingling, No tremor(s), No weakness and No other Exam Const General: cooperative, comfortable, no acute distress and disheveled Nutritional Appearance: cachectic [facility] Head: normal to inspection Eyes General: appearance normal, both eyes and all related structures Neck Neck: normal visual inspection Neck mass: No Chest Chest palpation & inspection: normal inspection of the chest Resp Effort & Inspection: normal respiratory effort Auscultation: diminished lung sounds bilaterally Cardio Rate: regular rate Rhythm: regular rhythm GI Inspection: normal to inspection Musc Cervical Spine: normal cervical lordosis Skin General: no rashes or lesions noted Neuro General: patient alert, patient awake and patient oriented x3 Extrem General: normal to inspection Psych Appearance: disheveled Affect: labile affect and flat Assessment and Plan Assessment and Plan (1) Chronic kidney disease, stage V requiring chronic dialysis: ?Status:?Acute ?Plan: Dr. Krueger will plan to perform a left radiocephalic arteriovenous hemodialysis fistula creation. Procedure details, risks and benefits have been reviewed. Patient may continue her aspirin. She has a plan in place to monitor her glucose the evening/night prior to surgery. Patient has had the opportunity to ask and have questions answered. Patient verbally understands and agrees with the plan. Since the patient's office visit request has been made by the dialysis center regarding poorly functioning tunneled hemodialysis catheter. A request has been made for removal and replacement. She is aware of this recommendation she is aware of the technique, benefit, risk, alternatives. We will add this to the procedure for her. I anticipating internal jugular approach if possible and will have to determine the site of best feasibility. Cisco Krueger M.D., F.A.C.S.
--- NOTE | 2022-07-18 07:11 | DCINST_ITS ---
Discharge Instructions Procedure Fistula Diet Discharge Diet: Renal Diet Activity Discharge Activity: May Not Drive (for 2-3 days or while taking narcotic pain medications.), May Shower and May Take a Tub Bath (in 5 days.) Lifting Restrictions: 5 pounds Keep extremity elevated above heart level: - (Keep arm elevated above the heart level for 3 days.) Dressing / Incision Call your doctor if your incision/area has: Continuous Slow Oozing, Sudden Increased Bleeding (apply pressure and call your doctor.), Increased Pain/ Swelling, Increased Redness and Foul Smelling Discharge Call your doctor if you observe: Fever of 101 or Higher Suture Line Care: Avoid Pulling/Pushing and Avoid Pinching/Bending Cleanse incision/area with: Keep Dressing Clean & Dry Additional Dressing/Incision Instructions:: Change or remove dressing in one day. May protect with a gauze bandaid. Follow Up Care Please Follow Up With: Cisco Krueger MD When: Call [phone] to make an appointment for suture removal and follow up in 1 week. Test Results: Test results from this visit will be discussed in further detail at your follow- up appointment, if applicable. Discharge Plan Admission Attending Provider: Cisco Krueger Primary Care Provider: Dennys Serrano Discharge Orders/Prescriptions Prescriptions: No Action atorvastatin 40 MG tablet 40 mg PO QHS aspirin 81 MG tablet,chewable 81 mg PO QHS clonidine HCl 0.3 MG tablet 0.3 mg PO TID insulin lispro [Humalog KwikPen Insulin] 100 unit/mL insulin pen 8 unit subcut TIDCM Rx Instructions: with meals sertraline 50 mg tablet 50 mg PO QHS ferrous sulfate [FeroSul] 325 mg (65 mg iron) tablet 325 mg PO QHS polyethylene glycol 3350 17 gram powder in packet 17 g PO DAILY PRN (Reason: Constipation) omeprazole 20 mg Capsule,Delayed Release(Dr/Ec) 20 mg PO DAILY multivitamin,tx-minerals Tablet 1 tab PO DAILY diltiazem HCl 180 mg Capsule,Extended Release 24hr 180 mg PO DAILY Qty: 0 0RF hydralazine 50 mg Tablet 100 mg PO TID Qty: 0 0RF pregabalin 75 mg Capsule 75 mg PO BID Qty: 10 0RF furosemide 20 mg Tablet 60 mg PO BIDLX Qty: 0 0RF calcium acetate(phosphat bind) 667 mg Capsule 667 mg PO TID tramadol 50 mg tablet 50 mg PO Q6H PRN (Reason: pain) 3 Days Qty: 5 0RF insulin glargine [Lantus Solostar U-100 Insulin] 100 unit/mL (3 mL) Insulin Pen 10 unit SUBCUT QPM Referrals / Follow Up: Dennys Serrano MD [Primary Care Provider] - Disposition Disposition (needs filled in before D/C Order can be placed): Home, Self Care
--- NOTE | 2022-07-18 07:15 | RAD_ITS ---
STUDY: X-RAY CHEST REASON FOR EXAM: Female, 61 years old. Dialysis catheter placement TECHNIQUE: Single AP portable view of the chest. COMPARISON: Comparison is made with prior study dated April 30, 2022. FINDINGS: A left-sided dialysis catheter has been placed with the tip at the junction of the superior vena cava and right atrium. EKG electrodes are seen. The lungs are clear and expanded. There is no demonstrated pleural abnormality. Normal size heart. Normal mediastinum and emily. Normal visualized pulmonary arteries. There is atherosclerotic calcification of the aortic arch with tortuosity. Normal visualized thoracic spine. Normal visualized ribs, clavicles, and shoulders. There is no demonstrated abnormality of the visualized soft tissue structures of the upper abdomen. RAD/Chest 1 View (Portable) IMPRESSION: The tip of the left-sided dialysis catheter is at the junction of the superior vena cava and right atrium. Electronically Signed: Angel Manley MD at 10:29 EDT ,
[2022-07-18] MEDS: Cefazolin 2 GM in 0.9% Normal Saline 100 ML IV (07:26)
[2022-07-18] MEDS: Lidocaine 1% (30 ml sdv) 30 ML Vial ×2 (07:41→08:40)
[2022-07-18] MEDS: Bupivacaine Mpf 0.5% 30 ML VIAL ×2 (07:41→08:40)
[2022-07-18] MEDS: Heparin 10,000 UNITS/10 ML Vial 10000 UNITS (07:41)
[2022-07-18] MEDS: Heparin Injection (Vial) 5,000 UNIT/ML VIAL 5000 UNIT (08:40)
--- NOTE | 2022-07-18 09:39 | OP.PCM_ITS ---
Report of Operation Date of Procedure: 07/18/22 Pre-Operative Diagnosis: Malfunctioning tunneled right internal jugular hemodia lysis catheters Need for arteriovenous hemodialysis fistula Post-Operative Diagnosis: Same Surgery/Procedure Performed:: Insertion left internal jugular 23 cm precurved palindrome catheter and removal of right internal jugular tunneled dialysis catheter left forearm radiocephalic arteriovenous hemodialysis fistula creation Description of Surgical Findings:: Timeout informed consent was obtained. 61-year-old female was taken to the operating room placed upon the table she underwent monitored anesthesia care. The patient's he received 2 g of Ancef intravenously 1% lidocaine mixed 50-50 with 0.25% Marcaine was used as a local anesthetic total of 16 cc was used for all procedures. Under ultrasound guidance local was instilled in the left neck micropuncture needle inserted micropuncture wire inserted micropuncture sheath inserted 035 J-wire was inserted carefully under all fluoroscopic visualization. Then local was instilled down upon the left chest wall and exit site was selected the tubing was tunneled from the chest to the neck. Dilators were placed and then the sheath dilator was inserted the wire and dilator were removed the catheter was [place] through the sheath the sheath was split the catheter appeared to be position at the SVC atrial junction and aspirated very easily it was flushed with saline then 2 cc per channel of heparinized saline the neck site was closed with an operative 5-0 Vicryl subdermal stitch the catheter was secured to skin with 3-0 nylon sterile dressings were applied including silver impregnated dressing at the exit site attention was drawn to the right chest local was instilled counterincision was created sharp blunt settings used to release the cough the tubing was removed with direct pressure held continuously upon the clavicle and neck area the counterincision was closed interrupted 5-0 Vicryl subdermal stitches sterile dressings were applied now [place] ns gloves and equipment table was changed the left upper extremity now sterilely prepped and draped. Ultrasound mapping had been done of the left forearm cephalic vein I marked the area for an oblique incision local was instilled a transverse oblique incision was created the vein was harvested with sidebranch secured with hemoclips sharp and blunt dissection was used to identify the radial artery which also was mobilized over approximately 3 cm then the patient received 6000's of heparin intravenously after adequate circulation time the vein was ligated distally then it was spatulated and irrigated. Artery was secured proximally and distally 11 blade was used to make an arteriotomy which was extended with Glass scissors a end to side venous to arterial anastomosis created with a running 7-0 Prolene prior to completion there appeared to be good inflow. The vein admittedly quite small in diameter anastomosis was completed though and immediately there appeared to be good flow based upon Doppler analysis. The hand was inspected it was noted to be pink and there was good ulnar flow based upon Doppler I felt that technically the fistula creation had gone well. The wound was closed with a deep layer of interrupted 3-0 Vicryl and then a running septic or 4 Monocryl. Steri-Strips Telfa tape dressings applied. Sponge and instrument and needle counts were reported to the surgeon to be correct. Blood loss minimal. Specimens none. Drains none. Blood loss minimal. The patient was taken to the recovery room. Chest x-ray pending. Cisco Krueger M.D., F.A.C.S. Surgeon: Cisco Krueger Type of Anesthesia: Local MAC Anesthesiologist: Yulissa Holguin
[2022-07-18 10:30] LABS: Bedside Glucose 328 mg/dL (74-106)
== END 2022-07-18 11:34 | disposition home or self-care (01) ==
LOC: SDC 05:34 → AC 05:34
PROVIDERS: Anesthesiology; PCP Family Medicine; Referring Provider Surgery; Visit Provider Surgery
PROC: (CPT 36815; principal; 2022-07-18 07:15)
DX: T82.41XA Breakdown (mechanical) of vascular dialysis catheter, initial encounter (principal); T82.838A Hemorrhage due to vascular prosthetic devices, implants and grafts, initial encounter; Z99.2 Dependence on renal dialysis; I50.9 Heart failure, unspecified; I13.0 Hypertensive heart and chronic kidney disease with heart failure and stage 1 through stage 4 chronic kidney disease, or unspecified chronic kidney disease; I27.20 Pulmonary hypertension, unspecified; E11.22 Type 2 diabetes mellitus with diabetic chronic kidney disease; E11.649 Type 2 diabetes mellitus with hypoglycemia without coma; N18.4 Chronic kidney disease, stage 4 (severe); Z79.4 Long term (current) use of insulin; E78.5 Hyperlipidemia, unspecified; Z79.82 Long term (current) use of aspirin; Z82.3 Family history of stroke; E78.00 Pure hypercholesterolemia, unspecified; I12.9 Hypertensive chronic kidney disease with stage 1 through stage 4 chronic kidney disease, or unspecified chronic kidney disease; R53.1 Weakness; Z79.899 Other long term (current) drug therapy; F32.A Depression, unspecified; K21.9 Gastro-esophageal reflux disease without esophagitis; Z90.49 Acquired absence of other specified parts of digestive tract; Y84.9 Medical procedure, unspecified as the cause of abnormal reaction of the patient, or of later complication, without mention of misadventure at the time of the procedure
CPT/HCPCS: 36815; 01844; 36415; 71045; 77001; 80048; 82962; 85025; 85027; 85610; 85730; 93005; 99285; A4648; J7030; J7040; A4216; J2405

== ENCOUNTER 2022-07-18 18:38 | Emergency (ER) | payer MEDICARE, MEDICAID, SELFPAY ==
[2022-07-18 18:40] VITALS: BP 138/90; PULSE 66; RESP 18; TEMP 36.7; O2SAT 98; BMI 24.1
--- NOTE | 2022-07-18 20:42 | EX.ED.UPPERE ---
HPI History of Present Illness Chief Complaint: Upper Extremity Injury Informant: patient Narrative Narrative: Patient is a 61-year-old female with history of end-stage renal disease on hemodialysis, diabetes, hypertension, hyperlipidemia and pressure sores presenting for bleeding at fistula site. Patient had an AV fistula placed in her left forearm today with Dr. Watt. She states she does still feel little out of it from the anesthetic. She has had bleeding from her surgical site and came in to be evaluated further. She does not think she called her surgeon. She denies any significant pain. She notes she had a regular hemodialysis session yesterday. Has no other complaint at this time. She states she is not on any blood thinners. [facility] Medical History Accidental fall Anemia Arthritis Bilateral pleural effusion Cardiology follow-up encounter Chronic pain syndrome CKD (chronic kidney disease) stage 4, GFR 15-29 ml/min Closed intertrochanteric fracture of left hip Depression Diabetes Diabetes mellitus with hyperglycemia Dietary restriction Essential hypertension Excessive bleeding Gastric reflux High cholesterol History of echocardiogram History of edema History of orthostatic hypotension History of renal dialysis History of stress test HLD (hyperlipidemia) HTN (hypertension) Hx of orthostatic hypotension Injury of head and neck Insulin dependent diabetes mellitus Low iron Malnutrition Migraine headache Migraine without aura Non-smoker Post-concussion syndrome Symptomatic anemia Syncope Transfusion of blood during current hospitalisation Type II diabetes mellitus Uses wheelchair Vertigo Vomiting Wears glasses Home Medications aspirin 81 mg chewable tablet 81 mg PO QHS HEART HEALTH 12/15/19 [History Last Taken 07/17/22] atorvastatin 40 mg tablet 40 mg PO QHS CHOLESTEROL 12/15/19 [History Last Taken 04/13/22] clonidine HCl 0.3 mg tablet 0.3 mg PO TID BLOOD PRESSURE 01/06/22 [History Last Taken 04/14/22] insulin lispro 100 unit/mL subcutaneous pen (Humalog KwikPen (U-100) Insulin) 8 unit subcut TIDCM diabetes 01/06/22 [History Last Taken 04/14/22] sertraline 50 mg tablet 50 mg PO QHS DEPRESSION 01/06/22 [History Last Taken 04/14/22] ferrous sulfate 325 mg (65 mg iron) tablet (FeroSul) 325 mg PO QHS SUPPLEMENT 02/13/22 [History Last Taken 04/14/22] polyethylene glycol 3350 17 gram oral powder packet 17 g PO DAILY PRN Constipation 02/13/22 [History Last Taken 03/13/22] multivitamin,tx-minerals 1 tab PO DAILY suppliment 04/30/22 [History Last Taken Unknown] omeprazole 20 mg capsule,delayed release 20 mg PO DAILY gerd 04/30/22 [History Last Taken Unknown] diltiazem HCl 180 mg capsule,extended release 24 hr 180 mg PO DAILY #0 caps 05/04/22 [Rx Last Taken Unknown] furosemide 20 mg tablet 60 mg PO BIDLX #0 tabs 05/04/22 [Rx Last Taken Unknown] hydralazine 50 mg tablet 100 mg PO TID #0 tabs 05/04/22 [Rx Last Taken Unknown] pregabalin 75 mg capsule 75 mg PO BID #10 caps 05/04/22 [Rx Last Taken Unknown] calcium acetate(phosphat bind) 667 mg capsule 667 mg PO TID 05/25/22 [History Last Taken Unknown] tramadol 50 mg tablet 50 mg PO Q6H PRN pain 3 days #5 tabs 05/30/22 [Rx Last Taken Unknown] insulin glargine 100 unit/mL (3 mL) subcutaneous pen (Lantus Solostar U-100 Insulin) 10 unit subcut QPM 06/14/22 [History Last Taken Unknown] Allergy/AdvReac Type Severity Reaction Status Date / Time metformin AdvReac Diarrhea Verified 07/18/22 06:31 Family History Mother Hypertension Father Cancer lymphoma, leukemia Emphysema of lung Hypertension Grandmother Diabetes CVA (cerebral vascular accident) Surgical History History of cholecystectomy History of esophagogastroduodenoscopy (EGD) History of mandibular surgery Hx of colonoscopy S/P dialysis catheter insertion Social History household members: significant other housing: detention Smoking Status: Never smoker alcohol intake: never substance use type: does not use ROS ROS ED Constitutional Constitutional ED: Denies chills or fever(s) Cardiovascular Cardiovascular: Denies chest pain Respiratory/Chest Respiratory/Chest: Denies cough Gastrointestinal Gastrointestinal: Denies abdominal pain, nausea or vomiting Integumentary Reports other Details: surgical wound left forearm Neurologic Neurologic: Reports weakness; Denies headache(s) Psychiatric Psychiatric: Denies anxiety Hematologic/Lymphatic Hematologic/Lymphatic: Denies easy bleeding EXAM Physical Exam Const Vital Signs: 07/18/22 18:40 Temperature 98.1 F Temperature Source Oral Pulse Rate 66 Respiratory Rate 18 Blood Pressure 138/90 H Blood Pressure Mean 106 Pulse Ox 98 Oxygen Delivery Method Room Air Positive well nourished and well developed General Appearance ED: well developed and NAD HEENT Reports moist mucous membranes normocephalic and atraumatic Neck supple Chest Wall inspection of chest normal Chest Narrative: Dialysis catheter in the left anterior chest wall. Bandage over right anterior chest wall were catheter was removed earlier today. Resp normal respiratory effort Cardio regular rate, regular rhythm and no murmurs GI non-tender and non-distended Extremity normal to inspection and full ROM Neuro Neuro Narrative: Somnolent, answers questions appropriately Sensorium / Orientation: alert Motor Exam: general weakness Skin Skin Narrative: Approximately 3 cm slough surgical incision palmar aspect of the left distal forearm. Steri-Strips are in place. There is steady oozing of blood. This oozing blood does form clots but the oozing continues. MDM MDM MDM Narrative Medical decision making narrative: Patient is evaluated for bleeding from surgical site. She had an AV fistula placed in her left forearm earlier today with Dr. Krueger. Clots are cleared and direct pressure applied. Patient continues to have bleeding x2 attempts of this. I spoke with Dr. Henderson, surgery on-call as it is now after hours. He came in and tried to stem the bleeding himself. Patient continued to have bleeding. Dr. Krueger was then called and bandage with an Daniel wrap was applied. Patient will be reevaluated Dr. Krueger in the morning (at 6 AM). Instructions are to call him on his direct landline if she starts to saturate through her current dressing. She will be kept n.p.o. after midnight in case she does require surgery in the morning. Patient does not have a ride home and transfer would not be able to get her home until 3 AM. In addition she not be able to get back here for wound check in the morning. Because of this patient be kept in the ER overnight and then be reevaluated by surgery in the morning. Patient is agreeable this plan of care. Patient remains hemodynamically stable in the ER. Lab Data Attestation: I reviewed the patient's lab results. Management Discussion w/another healthcare provider: [employer] Supervisor Discharge Plan Triage Chief Complaint: Upper Extremity Injury ED Provider: Kaitlin Lira Dx/Rx/DC Orders Clinical Impression: Postoperative bleeding from incision, Generalized weakness, CKD (chronic kidney disease) Prescriptions: No Action atorvastatin 40 MG tablet 40 mg PO QHS aspirin 81 MG tablet,chewable 81 mg PO QHS clonidine HCl 0.3 MG tablet 0.3 mg PO TID insulin lispro [Humalog KwikPen Insulin] 100 unit/mL insulin pen 8 unit subcut TIDCM Rx Instructions: with meals sertraline 50 mg tablet 50 mg PO QHS ferrous sulfate [FeroSul] 325 mg (65 mg iron) tablet 325 mg PO QHS polyethylene glycol 3350 17 gram powder in packet 17 g PO DAILY PRN (Reason: Constipation) omeprazole 20 mg Capsule,Delayed Release(Dr/Ec) 20 mg PO DAILY multivitamin,tx-minerals Tablet 1 tab PO DAILY diltiazem HCl 180 mg Capsule,Extended Release 24hr 180 mg PO DAILY Qty: 0 0RF hydralazine 50 mg Tablet 100 mg PO TID Qty: 0 0RF pregabalin 75 mg Capsule 75 mg PO BID Qty: 10 0RF furosemide 20 mg Tablet 60 mg PO BIDLX Qty: 0 0RF calcium acetate(phosphat bind) 667 mg Capsule 667 mg PO TID tramadol 50 mg tablet 50 mg PO Q6H PRN (Reason: pain) 3 Days Qty: 5 0RF insulin glargine [Lantus Solostar U-100 Insulin] 100 unit/mL (3 mL) Insulin Pen 10 unit SUBCUT QPM Primary Care Provider: Dennys Serrano Referrals: Dennys Serrano MD [Primary Care Provider] - Disposition Disposition: Home, Self Care
[2022-07-18 21:42] LABS: Absolute Lymphocyte Count 0.88 X10^3/uL (0.83-4.51); Absolute Neutrophil Count 5.6 X10^3/uL (2.0-7.7); Basophil# 0.06 X10^3/uL; Basophil% 0.8 % (0-1); Eosinophil# 0.42 X10^3/uL; Eosinophils% 5.7 % (0-5); Hemoglobin 9.4 g/dL (12.0-15.0); Lymphocyte # 0.88 X10^3/ul (0.83-4.51); Mean Corp Hgb Conc 31.3 g/dL (32-36); Mean Corpuscular Hgb 29.5 pg (27.0-32.0); Mean Platelet Vol. 10.7 fl (6.2-12.0); Monocyte# 0.38 X10^3/uL; Monocyte% 5.2 % (0-10); NRBC Flagged by Analyzer 0 % (0-5); Neutrophil # 5.61 X10^3/uL (2.7-7.7); Neutrophil % 76.2 % (47-70); Platelet Count 148 K/mm3 (150-450); RBC Distribution Width CV 15.4 % (11.6-14.6); RBC Distribution Width SD 51.9 fl (35.1-43.9); Red Blood Count 3.19 M/mm3 (4.2-5.4); White Blood Count 7.4 K/mm3 (4.4-11.0)
[2022-07-18 21:44] VITALS: BP 166/89; PULSE 72; RESP 18; O2SAT 97
[2022-07-18 21:50] LABS: International Normalized Ratio 1.1; Partial Thromboplast Time 36.6 Seconds (24.1-36.2); Prothrombin Time (Protime)PT. 13.9 SECONDS (11.7-14.9)
[2022-07-18 21:54] LABS: Anion Gap 4 (5-15); BUN 29 mg/dL (7-18); BUN/Creat Ratio 7.5 RATIO (10-20); Calcium,Total 8.8 mg/dL (8.5-10.1); Chloride 101 mmol/L (98-107); Creatinine, Serum 3.86 mg/dL (0.55-1.02); EST Glomerular Filtration Rate 13 mL/min (>60); Est Glom Filt Rate - Afr Amer 15 mL/min (>60); Estimated Creatinine Clearance 13.55 ml/min; Glucose 353 mg/dL (74-106); Potassium 4.4 mmol/L (3.5-5.1); Sodium Level 136 mmol/L (136-145)
[2022-07-19] VITALS: BP 164/78; PULSE 70; RESP 18; O2SAT 97
--- NOTE | 2022-07-19 00:34 | PCM.HP.STD ---
HPI - General General Date of Service: 07/19/22 Chief Complaint: Bleeding from freshly created dialysis access HPI Narrative LAYNE VINCENT, is a 61 F who presents to [facility] via squad after she was noted to be bleeding from a left upper extremity incision at approximately 1800 last evening. Yesterday morning she underwent relocation of a tunneled dialysis catheter and left radiocephalic AV fistula creation with Dr. Krueger and was discharged home in good condition when the bleeding started at the time described. ER obtained labs that demonstrated mild anemia, but reported that they had tried to apply light compression of the area and the wound is soaked through several dressings before making contact with me. They also noted some clotted blood at the patient's left chest catheter. For her part, patient denied any significant increase in her activity and states that her blood pressures vary widely throughout the day so she was uncertain whether her blood pressure was much different from what it would have been at the time of surgery. Lastly, patient notes that she is due to dialyze later today. [facility] Medical History Accidental fall Anemia Arthritis Bilateral pleural effusion Cardiology follow-up encounter Chronic pain syndrome CKD (chronic kidney disease) stage 4, GFR 15-29 ml/min Closed intertrochanteric fracture of left hip Depression Diabetes Diabetes mellitus with hyperglycemia Dietary restriction Essential hypertension Excessive bleeding Gastric reflux High cholesterol History of echocardiogram History of edema History of orthostatic hypotension History of renal dialysis History of stress test HLD (hyperlipidemia) HTN (hypertension) Hx of orthostatic hypotension Injury of head and neck Insulin dependent diabetes mellitus Low iron Malnutrition Migraine headache Migraine without aura Non-smoker Post-concussion syndrome Symptomatic anemia Syncope Transfusion of blood during current hospitalisation Type II diabetes mellitus Uses wheelchair Vertigo Vomiting Wears glasses Home Medications aspirin 81 mg chewable tablet 81 mg PO QHS HEART HEALTH 12/15/19 [History Last Taken 07/17/22] atorvastatin 40 mg tablet 40 mg PO QHS CHOLESTEROL 12/15/19 [History Last Taken 04/13/22] clonidine HCl 0.3 mg tablet 0.3 mg PO TID BLOOD PRESSURE 01/06/22 [History Last Taken 04/14/22] insulin lispro 100 unit/mL subcutaneous pen (Humalog KwikPen (U-100) Insulin) 8 unit subcut TIDCM diabetes 01/06/22 [History Last Taken 04/14/22] sertraline 50 mg tablet 50 mg PO QHS DEPRESSION 01/06/22 [History Last Taken 04/14/22] ferrous sulfate 325 mg (65 mg iron) tablet (FeroSul) 325 mg PO QHS SUPPLEMENT 02/13/22 [History Last Taken 04/14/22] polyethylene glycol 3350 17 gram oral powder packet 17 g PO DAILY PRN Constipation 02/13/22 [History Last Taken 03/13/22] multivitamin,tx-minerals 1 tab PO DAILY suppliment 04/30/22 [History Last Taken Unknown] omeprazole 20 mg capsule,delayed release 20 mg PO DAILY gerd 04/30/22 [History Last Taken Unknown] diltiazem HCl 180 mg capsule,extended release 24 hr 180 mg PO DAILY #0 caps 05/04/22 [Rx Last Taken Unknown] furosemide 20 mg tablet 60 mg PO BIDLX #0 tabs 05/04/22 [Rx Last Taken Unknown] hydralazine 50 mg tablet 100 mg PO TID #0 tabs 05/04/22 [Rx Last Taken Unknown] pregabalin 75 mg capsule 75 mg PO BID #10 caps 05/04/22 [Rx Last Taken Unknown] calcium acetate(phosphat bind) 667 mg capsule 667 mg PO TID 05/25/22 [History Last Taken Unknown] tramadol 50 mg tablet 50 mg PO Q6H PRN pain 3 days #5 tabs 05/30/22 [Rx Last Taken Unknown] insulin glargine 100 unit/mL (3 mL) subcutaneous pen (Lantus Solostar U-100 Insulin) 10 unit subcut QPM 06/14/22 [History Last Taken Unknown] Allergy/AdvReac Type Severity Reaction Status Date / Time metformin AdvReac Diarrhea Verified 07/18/22 06:31 Family History Mother Hypertension Father Cancer lymphoma, leukemia Emphysema of lung Hypertension Grandmother Diabetes CVA (cerebral vascular accident) Surgical History History of cholecystectomy History of esophagogastroduodenoscopy (EGD) History of mandibular surgery Hx of colonoscopy S/P dialysis catheter insertion Social History household members: significant other housing: group home Smoking Status: Never smoker alcohol intake: never substance use type: does not use Vital Signs Vital Signs Vital Signs: 07/18/22 18:40 07/18/22 21:44 Temperature 98.1 F Temperature Source Oral Pulse Rate 66 72 Respiratory Rate 18 18 Blood Pressure 138/90 H 166/89 H Blood Pressure Mean 106 114 Pulse Ox 98 97 Oxygen Delivery Method Room Air Room Air Weight Weight: 140 lb 10.479 oz Body Mass Index (BMI) 24.1 Physical Exam Const alert, oriented x3 and no apparent distress Constitutional Narrative: Patient responds appropriately, but appears somewhat aloof General Appearance: cooperative Extremity Extremity Narrative: Patient's left upper extremity is examined and she has a good pink color to her hand which is warm to the touch. The incision just above her wrist has a dressing in place with a small amount of oozing present on the overlying gauze. When this is removed there is persistent oozing through the midpoint of her incision which seems to be coming from the skin edge itself. Skin Skin Narrative: Crusted blood is present across the whole underside of patient's left upper chest dressing about her new tunneled catheter site. There does not appear to be any active oozing. Results Lab / Micro Data Result Diagrams: 07/18/22 21:35 07/18/22 21:35 Labs: Laboratory Results - last 24 hr 07/18/22 21:35: WBC 7.4, RBC 3.19 L, Hgb 9.4 L, Hct 30.0 L, MCV 94.0, MCH 29.5, MCHC 31.3 L, RDW Std Deviation 51.9 H, RDW Coeff of Chris 15.4 H, Plt Count 148 L, MPV 10.7, Immature Gran % (Auto) 0.100, Neut % (Auto) 76.2 H, Lymph % (Auto) 12.0 L, [place] % (Auto) 5.2, Eos % (Auto) 5.7 H, Baso % (Auto) 0.8, Absolute Neuts (auto) 5.6, Absolute Lymphs (auto) 0.88, Nucleated RBC % 0 07/18/22 21:35: PT 13.9, INR 1.1, APTT 36.6 H 07/18/22 21:35: Sodium 136, Potassium 4.4, Chloride 101, Carbon Dioxide 31.0, Anion Gap 4 L, BUN 29 H, Creatinine 3.86 H, Estim Creat Clear Calc 13.55, Est GFR (MDRD) Af Amer 15 L, Est GFR (MDRD) Non-Af 13 L, BUN/Creatinine Ratio 7.5 L, Glucose 353 H, Calcium 8.8 Assessment & Plan Assessment/Plan (1) Postoperative bleeding from incision: PLAN: This 61-year-old hemodialysis patient who is status post left AV fistula (radiocephalic) creation early yesterday. She developed bleeding several hours after arriving home from an uneventful PACU recovery. She denies any inciting trauma to the area, but is unable to clarify if there is been a change in her blood pressure since her discharge. Patient had saturated several dressings prior to my arrival and I took down the existing dressing, clean the area and applied a swatch of Surgicel snow to the area with light compression using a gauze. I was able to achieve just spotting through the dressing, but never complete hemostasis. I did take the opportunity also change patient's left chest catheter dressing using alcohol swabs and chlorhexidine to clean the skin surrounding the area and applied a new Telfa and 3000 OpSite dressing. With this inspection I did not find any bleeding. The above was then communicated to operating surgeon, Dr. Krueger who recommended that patient follow-up with him at 730 this morning if she was deemed fit for outpatient disposition. When it was discovered that she had an increase in her bleeding rate, he presented to bedside and once again took down her dressing and applied a new dressing with an Daniel wrap to provide more continuous compression. This seemed to result in cessation of the bleeding. Her access was also auscultated and found to be flowing nicely. Patient then communicated that she had transportation difficulties that would prevent her from making an outpatient visit, so it was jointly decided that she should stay in the emergency department for reevaluation later this morning. Patient is to be held n.p.o. past midnight in the event that she would require a return to the OR on the account of this bleeding. The above plan was discussed with emergency medicine. Charges/Coding Visit Charges Inpatient E&M: 76766 Init Hosp L2 Office Visits / Consults: 87424 ED Visit; High/Urgent Severity
[2022-07-19 05:00] VITALS: RESP 16
--- NOTE | 2022-07-19 05:30 | PCM.PN.SRG ---
Subjective Subjective Patient found resting comfortably. She has no specific complaints. Objective Data Objective Data Vital Signs: Vital Signs Temp Pulse Resp BP Pulse Ox O2 Del Method 98.1 F 70 16 164/78 H 97 Room Air 07/18/22 18:40 07/19/22 00:00 07/19/22 05:00 07/19/22 00:00 07/19/22 00:00 07/19/22 00:00 Oxygen Delivery Method Room Air Weight: 140 lb 10.479 oz Body Mass Index (BMI) 24.1 Lab / Micro Data Result Diagrams: 07/18/22 21:35 07/18/22 21:35 Labs: Laboratory Results - last 24 hr 07/18/22 21:35: WBC 7.4, RBC 3.19 L, Hgb 9.4 L, Hct 30.0 L, MCV 94.0, MCH 29.5, MCHC 31.3 L, RDW Std Deviation 51.9 H, RDW Coeff of Chris 15.4 H, Plt Count 148 L, MPV 10.7, Immature Gran % (Auto) 0.100, Neut % (Auto) 76.2 H, Lymph % (Auto) 12.0 L, [place] % (Auto) 5.2, Eos % (Auto) 5.7 H, Baso % (Auto) 0.8, Absolute Neuts (auto) 5.6, Absolute Lymphs (auto) 0.88, Nucleated RBC % 0 07/18/22 21:35: PT 13.9, INR 1.1, APTT 36.6 H 07/18/22 21:35: Sodium 136, Potassium 4.4, Chloride 101, Carbon Dioxide 31.0, Anion Gap 4 L, BUN 29 H, Creatinine 3.86 H, Estim Creat Clear Calc 13.55, Est GFR (MDRD) Af Amer 15 L, Est GFR (MDRD) Non-Af 13 L, BUN/Creatinine Ratio 7.5 L, Glucose 353 H, Calcium 8.8 Physical Exam Resp Resp Narrative: Left chest catheter site appears to be clean and dry. Extremity Extremity Narrative: Left upper extremity is warm and viable. Daniel wrap and roll dressing and 4 x 4 dressing removed. Minimal amount of dried blood staining on the gauze. The incision is hemostatic no active bleeding. Audible bruit noted. Assessment & Plan Assessment/Plan (1) Postoperative bleeding from incision: PLAN: Resolved left chest catheter and left forearm operative site bleeding likely secondary to patient anticoagulation and mild hypertension. I redressed left forearm with a very gentle Daniel wrap and gauze. Patient may be discharged in rooms resume diet. She will go to dialysis today and utilize her left chest catheters. I have requested to her that she schedule appointment to return to see me on August 01, 2022. I very much appreciate the kind assistance in caring for her. Cisco Krueger M.D., F.A.C.S.
[2022-07-19 05:40] VITALS: BP 160/78; PULSE 72; RESP 18; O2SAT 95
== END 2022-07-19 07:32 | disposition home or self-care (01) ==
PROVIDERS: Emergency Provider Emergency Medicine; PCP Family Medicine; Visit Provider Emergency Medicine
DX: T82.838A Hemorrhage due to vascular prosthetic devices, implants and grafts, initial encounter (principal); E11.22 Type 2 diabetes mellitus with diabetic chronic kidney disease; N18.4 Chronic kidney disease, stage 4 (severe); Z79.4 Long term (current) use of insulin; Z79.82 Long term (current) use of aspirin; E78.00 Pure hypercholesterolemia, unspecified; I12.9 Hypertensive chronic kidney disease with stage 1 through stage 4 chronic kidney disease, or unspecified chronic kidney disease; R53.1 Weakness; Z79.899 Other long term (current) drug therapy; F32.A Depression, unspecified; K21.9 Gastro-esophageal reflux disease without esophagitis; Z90.49 Acquired absence of other specified parts of digestive tract
CPT/HCPCS: 80048; 85025; 85610; 85730; J7030; A4216

== ENCOUNTER → 2022-08-29 | Outpatient (CLI) | payer MEDICARE, MEDICAID, SELFPAY ==
[2022-08-29 14:46] LABS: Absolute Neutrophil Count 3.5 X10^3/uL (2.0-7.7); Basophil# 0.04 X10^3/uL; Basophil% 0.8 % (0-1); Eosinophils% 3.8 % (0-5); Hematocrit 38.1 % (37-47); Hemoglobin 11.8 g/dL (12.0-15.0); Lymphocyte % 22.6 % (19-41); Mean Corpuscular Hgb 28.6 pg (27.0-32.0); Mean Corpuscular Volume 92.3 fL (81-99); Mean Platelet Vol. 10.7 fl (6.2-12.0); Monocyte# 0.38 X10^3/uL; Monocyte% 7.2 % (0-10); NRBC Flagged by Analyzer 0 % (0-5); Neutrophil # 3.45 X10^3/uL (2.7-7.7); Platelet Count 222 K/mm3 (150-450); RBC Distribution Width CV 15.3 % (11.6-14.6); RBC Distribution Width SD 51.4 fl (35.1-43.9); Red Blood Count 4.13 M/mm3 (4.2-5.4); White Blood Count 5.3 K/mm3 (4.4-11.0)
[2022-08-29 15:19] LABS: Anion Gap 8 (5-15); BUN 30 mg/dL (7-18); BUN/Creat Ratio 7.4 RATIO (10-20); Calcium,Total 9.2 mg/dL (8.5-10.1); Chloride 97 mmol/L (98-107); Creatinine, Serum 4.05 mg/dL (0.55-1.02); EST Glomerular Filtration Rate 12 mL/min (>60); Est Glom Filt Rate - Afr Amer 15 mL/min (>60); Glucose 293 mg/dL (74-106); Potassium 4.9 mmol/L (3.5-5.1); Sodium Level 132 mmol/L (136-145)
== END | disposition home or self-care (01) ==
LOC: PAVLAB 14:23
PROVIDERS: PCP Family Medicine; Referring Provider Physician Assistant; Visit Provider Physician Assistant
DX: T82.898A Other specified complication of vascular prosthetic devices, implants and grafts, initial encounter (principal)
CPT/HCPCS: 36415; 80048; 85025

== ENCOUNTER 2022-09-05 10:06 | Day surgery (SDC) | payer MEDICARE, MEDICAID, SELFPAY ==
[2022-09-04 09:50] VITALS: BMI 27.1
--- NOTE | 2022-09-05 12:06 | PCM.OPRPT ---
Report of Operation Date of Procedure: 09/05/22 Pre-Operative Diagnosis: Failure to mature left forearm radiocephalic arteriovenous hemodialysis fistula. Acute problems with left internal jugular tunneled dialysis catheter. Post-Operative Diagnosis: Small left forearm radiocephalic arteriovenous hemodialysis fistula Successfully placed right internal jugular tunneled dialysis catheter and removal of left internal jugular tunneled dialysis catheters Surgery/Procedure Performed:: Left upper extremity fistulogram with 4 x 80 mm Agatha cross balloon maturation angioplasty Right internal jugular 19 cm precurved palindrome catheter placement Removal left internal jugular tunneled dialysis catheters Description of Surgical Findings:: Timeout and informed consent was obtained. The patient was taken to special procedures lab placed upon the table the left upper extremity was sterilely prepped and draped she received 50 mcg of fentanyl and 0.5 mg of Versed under ultrasound guidance 2% lidocaine was instilled as a local anesthetic this was done antegrade with flow micropuncture needle inserted micropuncture wire inserted 6 Trinidadian short sheath dilator inserted inserted fistulogram was taken of the forearm upper arm and chest area there is evidence of left internal jugular tunneled dialysis catheter is obstructing some of the central flow but there was a generally diminutive cephalic vein that crossed over the antecubital space and outflow was via the basilic system. I then used the ultrasound again got access in the mid forearm injected local micropuncture needle micropuncture wire retrograde with flow then able to get an 035 angled Glidewire and a 4 Trinidadian glide cath into the radial artery proximal to the anastomosis obtain a fistulogram in that aspect. I could not see any critical areas of stenosis but the vein appeared to be generally diminutive I elected to do a balloon maturation angioplasty I placed a stabilizer wire a 4 x 80 mm Agatha cross balloon was inserted partly into the radial artery and balloon angioplasty was performed up to the 4 mm 14 efren of pressure held for 2 minutes. I then withdrew the balloon slightly and repeated the process. We obtained a contrast study by review exchanging out for the 4 Trinidadian glide cath this demonstrated an improvement in diameter and flow then placed the balloon antegrade with flow through the initially placed sheath and performed balloon angioplasty of the cephalic vein in the mid forearm area that was held for a minute. Completion views demonstrated now improvement in the forearm cephalic vein with improved apparent flow rapid clearance and improved diameter. Sheaths were removed few sutures of 4-0 nylon placed. The neck and chest area were sterilely prepped and draped 2% lidocaine again utilized ultrasound to stratify the right internal jugular vein micropuncture needle inserted micropuncture wire inserted micropuncture sheath inserted then an 035 J-wire was inserted local was instilled down upon the chest wall exit site selected the 19 cm precurved palindrome catheter was placed from the chest to the neck then I exchanged out for standard J-wire and serial dilatation was performed and the sheath dilator was inserted the catheter was inserted through the sheath was split it appeared to be positioned just within the right atrium there was good aspiration and flow was treated with heparinized saline 1000 units/cc 2 cc per chamber the catheter was secured to the chest with 3-0 nylon the neck site was closed with interrupted 4-0 Vicryl subdermal stitch Steri-Strips Telfa OpSite silver impregnated dressing applied to the exit site Telfa OpSite I then mac attention to the left chest which had similar been prepped and draped 2% lidocaine was used at the exit site with some traction and some blunt dissection and then some sharp scissor dissection I was able to release the cough direct pressure was held in the catheter was completely removed direct pressure continue be held then a at the completion a gauze and tape dressing applied Sponge and instrument and needle counts were correct she tolerated procedure well stat portable chest x-ray pending Specimens none. Drains none. Blood loss minimal. It is of note that for the dialysis catheter placement anesthesia arrived and performed monitored anesthesia care. It is at that time also the patient's received 2 g of Ancef IV prior to proceeding with placement of the tunneled dialysis catheter. Cisco Krueger M.D., F.A.C.S. Surgeon: Cisco Krueger Type of Anesthesia: Local MAC Anesthesiologist: Reba Carlson
--- NOTE | 2022-09-05 12:07 | HP.PCM_ITS ---
History and Physical Date of Admission: 09/05/22 Intake Vital Signs ? 07/18/2317:40 08/29/2312:30 Height 5 ft 4 in ? BP ? 153/81 H Blood Pressure Location ? Rt brachial Position ? Sitting Respiration ? 16 Pulse ? 97 Pulse Source ? Monitor Temp ? 97 F L Temp Source ? Temporal Pulse Oximetry (%) ? 97 Intake Visit Reasons:?Decreased thrill per tech Chief Complaint: Consult fistula Allergies metformin Adverse Reaction (Verified 07/18/22 06:31) Diarrhea PFSH Medical History? Accidental fall Anemia Arthritis Bilateral pleural effusion Cardiology follow-up encounter Chronic pain syndrome CKD (chronic kidney disease) stage 4, GFR 15-29 ml/min Closed intertrochanteric fracture of left hip Depression Diabetes Diabetes mellitus with hyperglycemia Dietary restriction Essential hypertension Excessive bleeding Gastric reflux High cholesterol History of echocardiogram History of edema History of orthostatic hypotension History of renal dialysis History of stress test HLD (hyperlipidemia) HTN (hypertension) Hx of orthostatic hypotension Injury of head and neck Insulin dependent diabetes mellitus Low iron Malnutrition Migraine headache Migraine without aura Non-smoker Post-concussion syndrome Symptomatic anemia Syncope Transfusion of blood during current hospitalisation Type II diabetes mellitus Uses wheelchair Vertigo Vomiting Wears glasses Surgical History? History of cholecystectomy History of esophagogastroduodenoscopy (EGD) History of mandibular surgery Hx of colonoscopy S/P dialysis catheter insertion Family History? Mother HypertensionFather Cancer ?? ? lymphoma, leukemia Emphysema of lung HypertensionGrandmother Diabetes CVA (cerebral vascular accident) Social History? household members:? significant other housing:? care home Smoking Status:? Never smoker alcohol intake:? never substance use type:? does not use HPI HPI Surgical H&P: Yes HPI: Patient is a 61 y/o F I am following s/p left forearm radiocephalic arteriovenous fistula creation and insertion of left chest catheter and removal of right IJ chest catheter. Patient has not followed up with hour office since the procedure. She comes to our office today noting the dialysis techs have noted a decrease in the bruit and thrill of the fistula. Patient is currently being dialyzed via left chest catheters. She notes she has to position herself laying down in order for the chest catheters to function appropriately. She states she has been able to successfully complete all dialysis treatments. Patient denies any pain/discomfort within the left forearm of the fistula. Dialysis center had contacted our office 1 1/2 weeks ago noting the fistula was weak. Dialysis center was notified that Dr. Krueger would be out of the office for 2 weeks and recommended that if the patient needs an urgent fistulogram, the patient would need to go elsewhere. Dialysis center noted that the patient could wait. Patient notes she has been working with Dr. Serrano for bilateral lower extremity swelling. She has her legs wrapped with gabriela wraps at least daily due to the swelling. She does have seeping from her bilateral lower extremities. She also has venous stasis ulcer of the left heel. She also notes a sore on the lateral aspect of the left forearm near the fistula. She is unsure of what caused this trauma. She has not had a previous fistulogram.? ? Exam Const General: cooperative, comfortable and no acute distress [facility] Head: normal to inspection Eyes General: appearance normal, both eyes and all related structures Neck Neck: normal visual inspection Neck mass: No Resp Effort & Inspection: normal respiratory effort Auscultation: clear to auscultation bilaterally Cardio Rate: regular rate Rhythm: regular rhythm GI Inspection: normal to inspection Palpation: soft Musc Cervical Spine: normal cervical lordosis Skin Lesions: lesion noted (Left heel) Neuro General: no focal motor deficits and CN's II-XI intact bilaterally Extrem General: edema (lower extremities with seeping) Laterality: bilateral Other: Left forearm fistula- weak pulse and thrill. Very diminished bruit. Radial artery was mobilized over approximately 3 cm during the creation. Fistula wraps around to the posterior aspect of the forearm. Posterior lateral forearm- trauma appears to be possibly from a skin tear. Unsure of what was placed in this location. She notes she has not had any blood draws or blood pressure cuff in this area. Psych Appearance: grossly normal Affect: normal affect Assessment and Plan Assessment and Plan (1) Problem with dialysis access: ?Status:?Acute ?Plan: Dr. Krueger will plan to perform an urgent fistulogram for failure to mature left forearm fistula. Procedure details, risks and benefits have been explained. Patient has had the opportunity to ask and have questions answered. Patient verbally understands and agrees with the plan. Patient will continue to take her 81 mg daily aspirin. ? ? ? Orders: Orders Basic Metabolic Profile (BMP) Today T82.898A - Other specified complication of vascular prosthetic devices, implants and grafts, initial encounter ? CBC W/Diff, Automated Today T82.898A - Other specified complication of vascular prosthetic devices, implants and grafts, initial encounter ? Coding Level of Care Code Global Post Op We have just received additional cane vacation from the dialysis center that they do not believe that the tunneled left internal jugular hemodialysis catheters are functioning to their satisfaction. Chest x-ray postprocedure placement demonstrated that they were absolutely in perfect position with the tip at the SVC atrial junction. The left forearm radiocephalic AV fistula appears very small consistent with the patient's diminutive anatomy. With the added on request for more surgery today we will plan on doing a left forearm fistulogram with possible endovascular intervention. Plan on attempted placement of right internal jugular tunneled hemodialysis catheter and plan then on removal of the left internal jugular hemodialysis catheters. It is of note that with a multi procedure like this in the past at the request of dialysis the patient did have some postoperative bleeding and ended up coming back to the emergency room and had to be admitted overnight. Hopefully that scenario can be avoided on this occasion. She is aware of technique, benefit, risk, alternatives. We will proceed as noted. Cisco Krueger M.D., F.A.C.S. Daisy SALAZAR PA-C
--- NOTE | 2022-09-05 15:50 | RAD_ITS ---
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 LUNGS: No consolidation, edema or effusion. No pneumothorax. MEDIASTINUM AND CARDIOVASCULAR STRUCTURES: Cardiac silhouette not enlarged. Central airways and mediastinal contour are unremarkable. BONES AND SOFT TISSUES: Unremarkable. RAD/CXR for Line Placement IMPRESSION: No radiographic evidence of acute cardiopulmonary disease. Electronically Signed: Keegan Beavers DO at 16:24 EDT ,
== END 2022-09-05 16:24 | disposition home or self-care (01) ==
LOC: CLSP 10:10
PROVIDERS: PCP Family Medicine; Referring Provider Surgery; Visit Provider Surgery
DX: T82.898A Other specified complication of vascular prosthetic devices, implants and grafts, initial encounter (principal); Z99.2 Dependence on renal dialysis; E11.9 Type 2 diabetes mellitus without complications; N18.30 Chronic kidney disease, stage 3 unspecified; I87.2 Venous insufficiency (chronic) (peripheral); Z79.82 Long term (current) use of aspirin; D64.9 Anemia, unspecified; E78.5 Hyperlipidemia, unspecified; Z86.010 Personal history of colon polyps; I12.9 Hypertensive chronic kidney disease with stage 1 through stage 4 chronic kidney disease, or unspecified chronic kidney disease
CPT/HCPCS: 36558; 36589; 36902; 71045; 76937; 77001; 99152; 99153; Q9967; C1725; C1750; C1769

== ENCOUNTER 2022-10-18 09:00 | Outpatient (RCR) | payer MEDICARE, MEDICAID, SELFPAY ==
[2022-03-01 00:19] VITALS: BP 160/90; PULSE 77; RESP 16; TEMP 36.2
[2022-10-04 09:06] VITALS: BP 95/44; PULSE 78; RESP 16; TEMP 36.1; BMI 22.0
--- NOTE | 2022-10-04 10:59 | HP.PCM_ITS ---
History of Present Illness Date of Service: 10/04/22 Chief Complaint: left heel ulcer left ankle ulcer- healed History of Wound: A 62-year-old female who presents to the wound care center today for left heel ulceration and bilateral lower extremity edema with multiple leg wounds secondary to previous blisters. In October 2019, patient had rubbing in shoes while shopping which led to a blister that developed into an ulceration. Patient was then seen by Dewey Amezquita.P.M. for wound care. Patient then became infected and was admitted to the hospital. Patient was noted to have OM on MRI. Patient wanted to avoid surgery so a equipment operator intermodal yard course of appropriate IV antibiotics was the treatment chosen. Patient was also noted to have hyperglycemia and has worked with hospitalist and PCP to try to get better control. Blood sugar levels remain elevated. Patient also had LEAS obtained in the hospital which suggested patient had the proper blood flow to allow healing. Patient has since finished equipment operator intermodal yard course of antibiotics. Patient has since been seen on a weekly basis in office with progression and regression of wound noted over the weeks. Patient has tried various dressing options including wet to dry and santyl. The most progress was noted with Santyl but patient ran out and was unable to refill due to insurance issues. During which time the wound regressed. She also has an offloading surgical shoe and offloading boot to relieve pressure. Patient care is henceforth being carried out at the wound care center. Patient not currently on any antibiotics. Patient has since began skin graft aplications significant improvement is been noted to her foot overall. Patient has finished epifix graft applications with some very small remaining wound noted to left heel. Patient has new wounds noted to bilateral third digits. The right 3rd digit wound has healed. Her left ankle ulcer remains healed Patient relates that ambulation is getting easier and she is rebuilding her strength slowly. She has not had any worsening of minor remaining heel wound s jenae beginning ambulation again. 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 Her has been helping her change the dressings daily to the left heel. She had been following in the wound care center in 2021 for left heel ulceration but was subsequently lost to follow-up. She cites transportation issues. She presents to the wound care center today for continued care of her left heel ulceration and bilateral lower extremity wounds secondary to edema. [facility] Medical History (Updated 10/04/22 @ 12:[address] Se Crowley DPUsha) Accidental fall Anemia Arthritis Bilateral pleural effusion Cardiology follow-up encounter Chronic pain syndrome CKD (chronic kidney disease) stage 4, GFR 15-29 ml/min Closed intertrochanteric fracture of left hip Depression Diabetes Diabetes mellitus with hyperglycemia Dietary restriction Essential hypertension Excessive bleeding Gastric reflux High cholesterol History of echocardiogram History of edema History of orthostatic hypotension History of renal dialysis History of stress test HLD (hyperlipidemia) HTN (hypertension) Hx of orthostatic hypotension Injury of head and neck Insulin dependent diabetes mellitus Low iron Malnutrition Migraine headache Migraine without aura Non-smoker Post-concussion syndrome Symptomatic anemia Syncope Transfusion of blood during current hospitalisation Type II diabetes mellitus Uses wheelchair Vertigo Vomiting Wears glasses Home Medications aspirin 81 mg chewable tablet 81 mg PO QHS HEART HEALTH 12/15/19 [History Last Taken 07/17/22] atorvastatin 40 mg tablet 40 mg PO QHS CHOLESTEROL 12/15/19 [History Last Taken 04/13/22] clonidine HCl 0.3 mg tablet 0.3 mg PO TID BLOOD PRESSURE 01/06/22 [History Last Taken 04/14/22] insulin lispro 100 unit/mL subcutaneous pen (Humalog KwikPen (U-100) Insulin) 8 unit subcut TIDCM diabetes 01/06/22 [History Last Taken 04/14/22] sertraline 50 mg tablet 50 mg PO QHS DEPRESSION 01/06/22 [History Last Taken ] ferrous sulfate 325 mg (65 mg iron) tablet (FeroSul) 325 mg PO QHS SUPPLEMENT 02/13/22 [History Last Taken 04/14/22] polyethylene glycol 3350 17 gram oral powder packet 17 g PO DAILY PRN Const ipation 02/13/22 [History Last Taken 03/13/22] multivitamin,tx-minerals 1 tab PO DAILY suppliment 04/30/22 [History Last Taken Unknown] omeprazole 20 mg capsule,delayed release 20 mg PO DAILY gerd 04/30/22 [History Last Taken Unknown] diltiazem HCl 180 mg capsule,extended release 24 hr 180 mg PO DAILY #0 caps 05/04/22 [Rx Last Taken Unknown] furosemide 20 mg tablet 60 mg (3 x 20 mg) PO BIDLX #0 tabs 05/04/22 [Rx Last Taken Unknown] hydralazine 50 mg tablet 100 mg (2 x 50 mg) PO TID #0 tabs 05/04/22 [Rx Last Taken Unknown] pregabalin 75 mg capsule 75 mg PO BID #10 caps 05/04/22 [Rx Last Taken Unknown] calcium acetate(phosphat bind) 667 mg capsule 667 mg PO TID 05/25/22 [History Last Taken Unknown] tramadol 50 mg tablet 50 mg PO Q6H PRN pain 3 days #5 tabs 05/30/22 [Rx Last Taken Unknown] insulin glargine 100 unit/mL (3 mL) subcutaneous pen (Lantus Solostar U-100 Insulin) 10 unit subcut QPM 06/14/22 [History Last Taken Unknown] Allergy/AdvReac Type Severity Reaction Status Date / Time metformin AdvReac Diarrhea Verified 09/19/22 09:01 Family History Mother Hypertension Father Cancer lymphoma, leukemia Emphysema of lung Hypertension Grandmother Diabetes CVA (cerebral vascular accident) Surgical History (Updated 09/19/22 @ 09:03 by Trina Desouza) History of cholecystectomy History of esophagogastroduodenoscopy (EGD) History of mandibular surgery Hx of colonoscopy S/P arteriovenous (AV) fistula creation S/P arteriovenous (AV) fistula repair S/P dialysis catheter insertion Social History household members: significant other housing: group home Smoking Status: Never smoker alcohol intake: never substance use type: does not use ROS Constitutional Constitutional: Denies chills, fatigue or fever(s) Eyes Eyes: Denies double vision, dry eyes or erythema ENT HEENT: Denies dysphagia, nasal congestion or sore throat Cardiovascular Cardiovascular: Denies chest pain, claudication or palpitations Respiratory/Chest Respiratory/Chest: Denies cough, pain on inspiration or wheezing Gastrointestinal Gastrointestinal: Denies abdominal pain, constipation, diarrhea, nausea or vomiting Genitourinary Genitourinary: Denies dysuria, hematuria or urinary urgency Musculoskeletal Musculoskeletal: Denies joint pain, joint stiffness or joint swelling Integumentary Integumentary: Denies lesions, pruritus or rash Neurologic Neurologic: Denies dizziness, numbness or seizures Endocrine Endocrinology: Denies cold intolerance or heat intolerance Hematologic/Lymphatic Hematologic/Lymphatic: Denies easy bleeding or easy bruising Vital Signs Vital Signs Vital Signs: 10/04/22 09:06 Temperature 96.9 F L Temperature Source Temporal Pulse Rate 78 Respiratory Rate 16 Blood Pressure 95/44 L Blood Pressure Mean 61 Blood Pressure Source Monitor Blood Pressure Position Sitting Blood Pressure Location Right Arm Oxygen Delivery Method Room Air Weight Weight: 60.1 kg Body Mass Index (BMI) 22.0 Physical Exam Const alert, oriented x3 and no apparent distress General Appearance: cooperative HEENT normocephalic Eyes General Eye: normal appearance of both eyes Neck General: normal visual inspection Lymph Lymphatic: no lymphadenopathy noted and no lymphedema noted Resp normal respiratory effort Cardio regular rate and regular rhythm Extremity normal capillary refill, no joint enlargement, no calf tenderness and no pedal edema Extremity Narrative: DP and PT pulses weakly palpable bilateral. Capillary fill time less than 5 seconds to the digits bilateral. Dermatological: Mild edema of the forefoot bilateral. Edema well controlled secondary to DANIEL wrapping midfoot to the tibial tuberosity however there are multiple healed wounds noted about the anterior lower extremity secondary to edema. No signs of infection. Left heel wound is healed with full epithelialization and no signs of infection. Dorsal second digit wound noted secondary to iatrogenic removal of her second toenail. No signs of infection and site is stable with slight eschar covering. Musculoskeletal: Decreased range of motion of the ankle joint dorsiflexion with the knee extended without pain or crepitus bilateral. Decreased range of motion of the first metatarsophalangeal joint without pain or crepitus bilateral. Muscle strength 5 of 5 age-appropriate. Skin no rashes or lesions noted, skin turgor normal and no jaundice Neuro moves all extremities Neuro Narrative: Decrease sensation bilateral lower extremities secondary to diabetic peripheral polyneuropathy Debridement Note Debridement Note No debridement was completed: No debridement was completed today Post-Debridement Measurements and Additional Note: Post-Debridement Measurements/Treatment - Nurse 1 - General Ulcer Assessment Start: 10/04/22 09:06 Freq: Status: Active Protocol: LOWEXT Activity Type Activity Date Activity User E-sign Co-sign Detail Recorded Client Recorded Date Recorded By Document 10/04/22 09:06 [id number] 10/04/22 09:17 KW 10/04/22 09:06 - Today's Visit Information Type of service Initial Visit Arrival Mode Wheelchair Patient Identification Verified (Name & Yes ) Patient Requires Transmission-Based No Precautions Finger Stick Blood Sugar(mg/dl) (if 230 indicated): Blood Sugar Stated by Patient Height and Weight Height 5 ft 5 in Weight 60.1 kg Weight in Pounds 132.5 lbs Weight Measurement Method Stated by Patient Body Mass Index (BMI) 22.0 BMI Classification Normal BSA - Alisia 1.66 Vital Signs Temperature (97.8 F-99.1 F) 96.9 F L Temperature Source Temporal Pulse Rate (60-100) 78 Pulse Location Monitor Respiratory Rate (12-18) 16 Respiratory rate source Observation Oxygen Delivery Method Room Air Blood Pressure (90/60-120/80) 95/44 L Blood Pressure Mean 61 Source Monitor Position Sitting Blood Pressure Location Right Arm History Since Last Visit- (Skip if this is Patient's initial visit) Left Footwear Slipper Right Footwear Slipper Pain Scale: 0-10 Numeric Is Patient Pain Free? Yes Lower Extremity Assessment/ Foot Assessment/ Toe Nail Assessment Right -Hair Growth on Legs Yes -Hair Growth on Toes Yes -Temperature of Extremity Cool Culture/Bahai/Staff Consultant Cultural/Bahai Needs that may affect No Treatment Plan Would you allow our hospital relief driller to No meet you for the purpose of spiritual/ emotional support? Staff Consultant to contact place of episcopal No Teaching: Wound Center *Wound/Skin Impairment -Person Taught Patient -Teaching Method Discussion, Demonstration -Response to teaching Verbalize understanding - Nurse 1 - General Ulcer Measurement Start: 10/04/22 09:06 Freq: Status: Active Protocol: Activity Type Activity Date Activity User E-sign Co-sign Detail Recorded Client Recorded Date Recorded By Document 10/04/22 09:06 [id number] 10/04/22 09:17 KW 10/04/22 09:06 Wound Center Nurse 1 #18 LT 2nd toe -Combined with (Name of Wound-Exactly .6 as it is documented) -Current Size (cm) - Length 0.9 -Current Size (cm) - Width 0.1 -Total Square Cm 0.09 -Texture (Bren-wound Skin Appearance) Assessed -Moisture (Bren-wound Skin Appearance) Assessed -Color (Bren-wound Skin Appearance) Assessed -Temperature (Bren-wound Skin No Abnormality Appearance) (Pt Warm) -Ulcer Cleansing Soap and Water -Anesthetic Used 5% Lidocaine Gel #17 Lat LLE cluster -Current Size (cm) - Length 4.0 -Current Size (cm) - Width 6.0 -Current Size (cm) - Depth 0.1 -Total Square Cm 24.00 -Epithelialization Small 1-33% -Exudate Amt Small -Exudate Type Serosanguineous -Texture (Bren-wound Skin Appearance) Assessed -Moisture (Bren-wound Skin Appearance) Assessed -Color (Bren-wound Skin Appearance) Assessed -Ulcer Cleansing Soap and Water -Anesthetic Used 5% Lidocaine Gel 6-left heel -Combined with (Name of Wound-Exactly .9 as it is documented) -Current Size (cm) - Length 0.8 -Necrosis Amt Large (67-100%) -Necrotic Tissue Type Eschar -Texture (Bren-wound Skin Appearance) Assessed -Moisture (Bren-wound Skin Appearance) Assessed -Color (Bren-wound Skin Appearance) Assessed -Ulcer Cleansing Soap and Water -Anesthetic Used 5% Lidocaine Gel Right Calf (cm) 32 Right Ankle (cm) 23 Left Calf (cm) 31 Left Ankle (cm) 21.5 Assessment/Plan Assessment/Plan (1) Type II diabetes mellitus: CODE(S): E11.9 - Type 2 diabetes mellitus without complications QUALIFIERS: Diabetes mellitus half-way insulin use: unspecified equipment operator intermodal yard insulin use status Diabetes mellitus complication status: with neurologic complications Diabetes mellitus complication detail: with polyneuropathy Qualified Code(s): E11.42 - Type 2 diabetes mellitus with diabetic polyneuropathy (2) Chronic kidney disease, stage V requiring chronic dialysis: CODE(S): N18.6 - End stage renal disease; Z99.2 - Dependence on renal dialysis (3) Generalized weakness: CODE(S): R53.1 - Weakness (4) Debility: CODE(S): R53.81 - Other malaise (5) Bilateral edema of lower extremity: CODE(S): R60.0 - Localized edema (6) Non-pressure chronic ulcer of left calf with fat layer exposed: CODE(S): L97.222 - Non-pressure chronic ulcer of left calf with fat layer exposed PLAN: Plan Patient seen and evaluated No debridement performed today. Currently no open wounds. Edema at this time is well controlled with multiple healed wounds to the bilateral lower extremity secondary to her edema. No signs of infection. Left heel ulceration has healed with full epithelialization. No signs of infection to the left heel. Left Second digit eschar noted at the site of previous second toenail which underwent iatrogenic removal via sock. Site is stable at this time with no signs of infection. Discussed continued elevation of lower extremities to control edema. Discussed transition to compression stocking to maintain lower extremity edema. Today double Tubigrip compression was applied to bilateral lower extremities. We will continue to monitor bilateral lower extremity wounds secondary to her edema in the dorsal second digit of the left foot. Discussed diabetic management today and continuing proper diabetic diet for tight glycemic control. Discussed continued work to lower her hemoglobin A1c. She is following with screw down/PCP for diabetic management. Encouraged shoe gear to be worn at all times and to avoid barefoot. Discussed socks include barefoot. Encouraged daily foot checks for signs of ulcers, cuts, pressure wounds, infections. Discussed calling office or wound center should she notice anything suspicious. The following work up and care recommendations were made: Dressing: Tubigrip compression dressing bilateral. Wash: Soap and water Tissue growth optimization: None Offload: Continue to offload by elevating feet at times of rest. Vascular: Weakly palpable DP and PT pulses with adequate capillary fill time to the digits. Do not feel the vascular is impeding healing status. Edema: Edema well-controlled at this time. Recommend continued use of compression dressing via Daniel wrap, Tubigrip, or compression stockings. Infection: No signs of infection Pain: May take [id number] Tylenol for discomfort Host factors: DM type II with peripheral polyneuropathy, CKD stage V on dialysis, bilateral lower extremity edema, debility I answered all the patient's questions. To return to the wound healing center in 2-3 weeks or call sooner if the patient has any questions or concerns.
[2022-10-18 08:55] VITALS: BP 123/58; PULSE 72; RESP 16; TEMP 35.6; BMI 22.0
--- NOTE | 2022-10-18 09:10 | PCM.WC.PN ---
History of Present Illness Date of Service: 10/18/22 Chief Complaint: left heel ulcer left ankle ulcer- healed History of Wound: A 62-year-old female who presents to the wound care center today for left heel ulceration and bilateral lower extremity edema with multiple leg wounds secondary to previous blisters. In October 2019, patient had rubbing in shoes while shopping which led to a blister that developed into an ulceration. Patient was then seen by Dewey Amezquita.P.M. for wound care. Patient then became infected and was admitted to the hospital. Patient was noted to have OM on MRI. Patient wanted to avoid surgery so a fdc course of appropriate IV antibiotics was the treatment chosen. Patient was also noted to have hyperglycemia and has worked with hospitalist and PCP to try to get better control. Blood sugar levels remain elevated. Patient also had LEAS obtained in the hospital which suggested patient had the proper blood flow to allow healing. Patient has since finished predatory animal exterminator course of antibiotics. Patient has since been seen on a weekly basis in office with progression and regression of wound noted over the weeks. Patient has tried various dressing options including wet to dry and santyl. The most progress was noted with Santyl but patient ran out and was unable to refill due to insurance issues. During which time the wound regressed. She also has an offloading surgical shoe and offloading boot to relieve pressure. Patient care is henceforth being carried out at the wound care center. Patient not currently on any antibiotics. Patient has since began skin graft aplications significant improvement is been noted to her foot overall. Patient has finished epifix graft applications with some very small remaining wound noted to left heel. Patient has new wounds noted to bilateral third digits. The right 3rd digit wound has healed. Her left ankle ulcer remains healed Patient relates that ambulation is getting easier and she is rebuilding her strength slowly. She has not had any worsening of minor remaining heel wound since beginning ambulation again. 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 Her has been helping her change the dressings daily to the left heel. She had been following in the wound care center in 2021 for left heel ulceration but was subsequently lost to follow-up. She cites transportation issues. She presents to the wound care center today for continued care of her left heel ulceration and bilateral lower extremity wounds secondary to edema. Subjective Subjective This is a 62-year-old female who follows to the wound care center for bilateral lower extremity edema and history of wounds. At last visit she demonstrated no open wounds with swelling well controlled however returns today with bilateral lower extremity edema secondary to failure to wear compression stockings. She states she felt like she was starting to open up and did not want to wear the compression over the wound. She denies constitutional symptoms. Denies further complaints. Objective Data Objective Data Vital Signs: Vital Signs Temp Pulse Resp BP O2 Del Method 96.0 F L 72 16 123/58 H Room Air 10/18/22 08:55 10/18/22 08:55 10/18/22 08:55 10/18/22 08:55 10/04/22 09:06 Oxygen Delivery Method Room Air Weight: 60.1 kg Body Mass Index (BMI) 22.0 Physical Exam Const alert, oriented x3 and no apparent distress General Appearance: cooperative HEENT normocephalic Eyes General Eye: normal appearance of both eyes Neck General: normal visual inspection Lymph Lymphatic: no lymphadenopathy noted and no lymphedema noted Resp normal respiratory effort Cardio regular rate and regular rhythm Extremity normal capillary refill, no joint enlargement, no calf tenderness and no pedal edema Extremity Narrative: DP and PT pulses weakly palpable bilateral. Capillary fill time less than 5 seconds to the digits bilateral. Dermatological: Mild edema of the forefoot bilateral. Edema well controlled secondary to DANIEL wrapping midfoot to the tibial tuberosity however there are multiple healed wounds noted about the anterior lower extremity secondary to edema. There is also left lower extremity lateral wound with superficial eschar secondary to lower extremity edema. No signs of infection. Left heel wound is healed with full epithelialization and no signs of infection. Dorsal second digit wound noted secondary to iatrogenic removal of her second toenail. No signs of infection and site is stable with slight eschar covering. Musculoskeletal: Decreased range of motion of the ankle joint dorsiflexion with the knee extended without pain or crepitus bilateral. Decreased range of motion of the first metatarsophalangeal joint without pain or crepitus bilateral. Muscle strength 5 of 5 age-appropriate. Skin no rashes or lesions noted, skin turgor normal and no jaundice Neuro moves all extremities Neuro Narrative: Decrease sensation bilateral lower extremities secondary to diabetic peripheral polyneuropathy Debridement Note Debridement Note No debridement was completed: No debridement was completed today Post-Debridement Measurements and Additional Note: Post-Debridement Measurements/Treatment WC - Nurse 1 - General Ulcer Assessment Start: 10/04/22 09:06 Freq: Status: Active Protocol: MOOK Activity Type Activity Date Activity User E-sign Co-sign Detail Recorded Client Recorded Date Recorded By Document 10/04/22 09:06 KW [id number] 10/04/22 09:17 KW Document 10/18/22 08:55 JAUN [id number] 10/18/22 08:58 JF 10/04/22 10/18/22 09:06 08:55 WC - Today's Visit Information Type of service Initial Visit Follow-up Visit (Physician/CUSHION FILLER ) Arrival Mode Wheelchair Wheelchair Transfer Assistance Manual Patient Identification Verified (Name & Yes Yes ) Patient Requires Transmission-Based No No Precautions Finger Stick Blood Sugar(mg/dl) (if 230 136 indicated): Blood Sugar Stated by Stated by Patient Patient Height and Weight Height 5 ft 5 in Weight 60.1 kg Weight in Pounds 132.5 lbs Weight Measurement Method Stated by Patient Body Mass Index (BMI) 22.0 22.0 BMI Classification Normal Normal BSA - Alisia 1.66 Vital Signs Temperature (97.8 F-99.1 F) 96.9 F L 96.0 F L Temperature Source Temporal Temporal Pulse Rate (60-100) 78 72 Pulse Location Monitor Monitor Respiratory Rate (12-18) 16 16 Respiratory rate source Observation Observation Oxygen Delivery Method Room Air Blood Pressure (90/60-120/80) 95/44 L 123/58 H Blood Pressure Mean (mm Hg) 61 79 Source Monitor Monitor Position Sitting Sitting Blood Pressure Location Right Arm Right Arm History Since Last Visit- (Skip if this is Patient's initial visit) Any new allergies or adverse reactions No Had a fall/change in ADL's that may No increase risk of falls Signs or symptoms of abuse and/or No neglect since last visit Have you been in the hospital since your No last visit? Has dressing in place as prescribed Yes Has compression in place as prescribed No Has offloadiing in place as prescribed N/A Experienced any changes in pain level or No management Left Footwear Slipper No Footwear Right Footwear Slipper No Footwear Pain Scale: 0-10 Numeric Is Patient Pain Free? Yes Yes Lower Extremity Assessment/ Foot Assessment/ Toe Nail Assessment Right -Hair Growth on Legs Yes -Hair Growth on Toes Yes -Temperature of Extremity Cool Culture/Presybeterian/Japanese Tutor Cultural/Presybeterian Needs that may affect No Treatment Plan Would you allow our hospital strategic debriefing specialist to No meet you for the purpose of spiritual/ emotional support? Japanese Tutor to contact place of episcopalian No Teaching: Wound Center *Wound/Skin Impairment -Person Taught Patient -Teaching Method Discussion, Demonstration -Response to teaching Verbalize understanding WC - Nurse 1 - General Ulcer Measurement Start: 10/04/22 09:06 Freq: Status: Active Protocol: Activity Type Activity Date Activity User E-sign Co-sign Detail Recorded Client Recorded Date Recorded By Document 10/04/22 09:06 KW [id number] 10/04/22 09:17 KW Document 10/18/22 08:55 JF [id number] 10/18/22 08:58 JF 10/04/22 10/18/22 09:06 08:55 Wound Center Nurse 1 6-left heel -Combined with (Name of Wound-Exactly .9 as it is documented) -Current Size (cm) - Length 0.8 -Necrosis Amt Large (67-100%) -Necrotic Tissue Type Eschar -Texture (Bren-wound Skin Appearance) Assessed -Moisture (Bren-wound Skin Appearance) Assessed -Color (Bren-wound Skin Appearance) Assessed -Ulcer Cleansing Soap and Water -Anesthetic Used 5% Lidocaine Gel #18 LT 2nd toe -Combined with other wound No -Combined with (Name of Wound-Exactly .6 as it is documented) -Current Size (cm) - Length 0.9 0 -Current Size (cm) - Width 0.1 0 -Current Size (cm) - Depth 0 -Total Square Cm 0.09 0 -Photo Taken Yes -Epithelialization Large 67-100% -Tunneling No -Undermining/Tunneling No -Circular Undermining No -Exudate Amt None Present -Texture (Bren-wound Skin Appearance) Assessed -Moisture (Bren-wound Skin Appearance) Assessed -Color (Bren-wound Skin Appearance) Assessed -Temperature (Bren-wound Skin No Abnormality Appearance) (Pt Warm) -Ulcer Cleansing Soap and Water -Anesthetic Used 5% Lidocaine Gel #17 Lat LLE cluster -Combined with other wound No -Current Size (cm) - Length 4.0 6.5 -Current Size (cm) - Width 6.0 3.0 -Current Size (cm) - Depth 0.1 0.1 -Total Square Cm 24.00 19.50 -Photo Taken No -Epithelialization Small 1-33% Small 1-33% -Tunneling No -Undermining/Tunneling No -Circular Undermining No -Exudate Amt Small None Present -Exudate Type Serosanguineous -Wound Margin Fibrotic Scar, Thickened Scar -Granulation Amt None Present (0 %) -Slough/Fibrin Yes -Necrosis Amt Large (67-100%) -Structure Exposed N/A -Texture (Bren-wound Skin Appearance) Assessed Assessed, Localized Edema -Moisture (Bren-wound Skin Appearance) Assessed Assessed,Dry/ Scaly -Color (Bren-wound Skin Appearance) Assessed Assessed -Temperature (Bren-wound Skin No Abnormality Appearance) (Pt Warm) -Tenderness on Palpation (Bren-wound No Skin Appearance) -Ulcer Cleansing Soap and Water Rinsed/ Irrigated with Saline -Foul Odor after Cleansing No -Anesthetic Used 5% Lidocaine 5% Lidocaine Gel Gel Lower Limb Edema Present Yes Right Calf (cm) 32 35 Right Ankle (cm) 23 25.6 Left Calf (cm) 31 35.7 Left Ankle (cm) 21.5 23.0 Assessment/Plan Assessment/Plan (1) Type II diabetes mellitus: CODE(S): E11.9 - Type 2 diabetes mellitus without complications QUALIFIERS: Diabetes mellitus complication detail: with polyneuropathy Diabetes mellitus complication status: with neurologic complications Diabetes mellitus predatory animal exterminator insulin use: unspecified predatory animal exterminator insulin use status Qualified Code(s): E11.42 - Type 2 diabetes mellitus with diabetic polyneuropathy (2) Chronic kidney disease, stage V requiring chronic dialysis: CODE(S): N18.6 - End stage renal disease; Z99.2 - Dependence on renal dialysis (3) Generalized weakness: CODE(S): R53.1 - Weakness (4) Debility: CODE(S): R53.81 - Other malaise (5) Bilateral edema of lower extremity: CODE(S): R60.0 - Localized edema (6) Non-pressure chronic ulcer of left calf with fat layer exposed: CODE(S): L97.222 - Non-pressure chronic ulcer of left calf with fat layer exposed PLAN: Plan Patient seen and evaluated No debridement performed today. Currently no open wounds. Edema at previous visit was well controlled with multiple healed wounds to the bilateral lower extremity secondary to her edema. Today she demonstrates bilateral lower extremity edema secondary to failure to wear compression stockings as she had felt she was starting to develop blisters and did not want to wear the compression stocking over the blister. Left lateral lower extremity demonstrates previous open blister with eschar covering. No signs of infection. Left heel ulceration has healed with full epithelialization. No signs of infection to the left heel. Left Second digit eschar noted at the site of previous second toenail which underwent iatrogenic removal via sock. Site is stable at this time with no signs of infection. Discussion was had with her stating she still needs to dress/protect blister site with a dry dressing and then wear the compression stocking over any blister or possible wound site. I discussed with her that this will discourage any potential wounds from getting bigger secondary to the edema. She voices understanding of this. Discussed continued elevation of lower extremities to control edema. Discussed compression stocking to maintain lower extremity edema. Today double Tubigrip compression was applied to bilateral lower extremities. We will continue to monitor bilateral lower extremity wounds secondary to her edema in the dorsal second digit of the left foot. Discussed diabetic management today and continuing proper diabetic diet for tight glycemic control. Discussed continued work to lower her hemoglobin A1c. She is following with extruding department supervisor/PCP for diabetic management. Encouraged shoe gear to be worn at all times and to avoid barefoot. Discussed socks include barefoot. Encouraged daily foot checks for signs of ulcers, cuts, pressure wounds, infections. Discussed calling office or wound center should she notice anything suspicious. The following work up and care recommendations were made: Dressing: Tubigrip compression dressing bilateral. Wash: Soap and water Tissue growth optimization: None Offload: Continue to offload by elevating feet at times of rest. Vascular: Weakly palpable DP and PT pulses with adequate capillary fill time to the digits. Do not feel the vascular is impeding healing status. Edema: Edema well-controlled at this time. Recommend continued use of compression dressing via Daniel wrap, Tubigrip, or compression stockings. Infection: No signs of infection Pain: May take [id number] Tylenol for discomfort Host factors: DM type II with peripheral polyneuropathy, CKD stage V on dialysis, bilateral lower extremity edema, debility I answered all the patient's questions. To return to the wound healing center in 2-3 weeks or call sooner if the patient has any questions or concerns.
== END 2022-10-29 23:59 | disposition home or self-care (01) ==
LOC: WC 09:00
PROVIDERS: PCP Family Medicine; Referring Provider Student in an Organized Health Care Education/Training Program; Visit Provider Student in an Organized Health Care Education/Training Program
DX: E11.621 Type 2 diabetes mellitus with foot ulcer (principal); L97.222 Non-pressure chronic ulcer of left calf with fat layer exposed; Z99.2 Dependence on renal dialysis; E11.65 Type 2 diabetes mellitus with hyperglycemia; E11.22 Type 2 diabetes mellitus with diabetic chronic kidney disease; E11.42 Type 2 diabetes mellitus with diabetic polyneuropathy; I12.0 Hypertensive chronic kidney disease with stage 5 chronic kidney disease or end stage renal disease; N18.6 End stage renal disease; Z79.4 Long term (current) use of insulin; E78.5 Hyperlipidemia, unspecified; R53.81 Other malaise; D64.9 Anemia, unspecified; Z82.3 Family history of stroke; F07.81 Postconcussional syndrome; R60.0 Localized edema; Z79.82 Long term (current) use of aspirin; G89.4 Chronic pain syndrome; R53.1 Weakness
CPT/HCPCS: 99213; G0463

== ENCOUNTER 2022-11-08 09:05 | Outpatient (RCR) | payer MEDICARE, MEDICAID, SELFPAY ==
[2022-10-30 00:03] VITALS: BP 123/58; PULSE 72; RESP 16; TEMP 35.6; BMI 22.0
[2022-11-08 09:08] VITALS: BP 119/62; PULSE 62; RESP 20; TEMP 36.3; BMI 22.0
--- NOTE | 2022-11-08 09:10 | PCM.WC.PN ---
History of Present Illness Date of Service: 11/08/22 Chief Complaint: left heel ulcer left ankle ulcer- healed History of Wound: A 62-year-old female who presents to the wound care center today for left heel ulceration and bilateral lower extremity edema with multiple leg wounds secondary to previous blisters. In October 2019, patient had rubbing in shoes while shopping which led to a blister that developed into an ulceration. Patient was then seen by Dewey Amezquita.P.M. for wound care. Patient then became infected and was admitted to the hospital. Patient was noted to have OM on MRI. Patient wanted to avoid surgery so a residential course of appropriate IV antibiotics was the treatment chosen. Patient was also noted to have hyperglycemia and has worked with hospitalist and PCP to try to get better control. Blood sugar levels remain elevated. Patient also had LEAS obtained in the hospital which suggested patient had the proper blood flow to allow healing. Patient has since finished terminologist course of antibiotics. Patient has since been seen on a weekly basis in office with progression and regression of wound noted over the weeks. Patient has tried various dressing options including wet to dry and santyl. The most progress was noted with Santyl but patient ran out and was unable to refill due to insurance issues. During which time the wound regressed. She also has an offloading surgical shoe and offloading boot to relieve pressure. Patient care is henceforth being carried out at the wound care center. Patient not currently on any antibiotics. Patient has since began skin graft aplications significant improvement is been noted to her foot overall. Patient has finished epifix graft applications with some very small remaining wound noted to left heel. Patient has new wounds noted to bilateral third digits. The right 3rd digit wound has healed. Her left ankle ulcer remains healed Patient relates that ambulation is getting easier and she is rebuilding her strength slowly. She has not had any worsening of minor remaining heel wound since beginning ambulation again. 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 Her has been helping her change the dressings daily to the left heel. She had been following in the wound care center in 2021 for left heel ulceration but was subsequently lost to follow-up. She cites transportation issues. She presents to the wound care center today for continued care of her left heel ulceration and bilateral lower extremity wounds secondary to edema. Subjective Subjective This is a 62-year-old female who follows to the wound care center for bilateral lower extremity edema and history of wounds. At last visit she demonstrated no open wounds with swelling well controlled however returns today with bilateral lower extremity edema secondary to failure to wear compression stockings. She has worn compression stockings as instructed at her previous visit and swelling has greatly improved today. She denies constitutional symptoms. Denies further complaints. Objective Data Objective Data Vital Signs: Vital Signs Temp Pulse Resp BP 96.0 F L 72 16 123/58 H 10/30/22 00:03 10/30/22 00:03 10/30/22 00:03 10/30/22 00:03 Weight: 60.1 kg Body Mass Index (BMI) 22.0 Physical Exam Const alert, oriented x3 and no apparent distress General Appearance: cooperative HEENT normocephalic Eyes General Eye: normal appearance of both eyes Neck General: normal visual inspection Lymph Lymphatic: no lymphadenopathy noted and no lymphedema noted Resp normal respiratory effort Cardio regular rate and regular rhythm Extremity normal capillary refill, no joint enlargement, no calf tenderness and no pedal edema Skin no rashes or lesions noted, skin turgor normal and no jaundice Skin Narrative: DP and PT pulses weakly palpable bilateral. Capillary fill time less than 5 seconds to the digits bilateral. Dermatological: Mild edema of the forefoot bilateral. Edema well controlled secondary to DANIEL wrapping midfoot to the tibial tuberosity however there are multiple healed wounds noted about the anterior lower extremity secondary to edema. There is also left lower extremity lateral wound with superficial eschar secondary to lower extremity edema. No signs of infection. Left heel wound is healed with full epithelialization and no signs of infection. Dorsal second digit wound noted secondary to iatrogenic removal of her second toenail. No signs of infection and site is stable with slight eschar covering. Musculoskeletal: Decreased range of motion of the ankle joint dorsiflexion with the knee extended without pain or crepitus bilateral. Decreased range of motion of the first metatarsophalangeal joint without pain or crepitus bilateral. Muscle strength 5 of 5 age-appropriate. Neuro moves all extremities Neuro Narrative: Decrease sensation bilateral lower extremities secondary to diabetic peripheral polyneuropathy Debridement Note Debridement Note No debridement was completed: No debridement was completed today Assessment/Plan Assessment/Plan (1) Non-pressure chronic ulcer of left calf with fat layer exposed: CODE(S): L97.222 - Non-pressure chronic ulcer of left calf with fat layer exposed (2) Bilateral edema of lower extremity: CODE(S): R60.0 - Localized edema (3) Debility: CODE(S): R53.81 - Other malaise (4) Generalized weakness: CODE(S): R53.1 - Weakness (5) Type II diabetes mellitus: CODE(S): E11.9 - Type 2 diabetes mellitus without complications QUALIFIERS: Diabetes mellitus residential insulin use: unspecified residential insulin use status Diabetes mellitus complication status: with neurologic complications Diabetes mellitus complication detail: with polyneuropathy Qualified Code(s): E11.42 - Type 2 diabetes mellitus with diabetic polyneuropathy PLAN: Plan Patient seen and evaluated No debridement performed today. Currently no open wounds. Edema at previous visit is now well controlled with multiple healed wounds to the bilateral lower extremity secondary to her edema. Edema now well-controlled with wearing compression stockings. No signs of infection. Left heel ulceration has healed with full epithelialization. No signs of infection to the left heel. Left Second digit eschar noted at the site of previous second toenail which underwent iatrogenic removal via sock. Site is healed at this time with no signs of infection. Discussion was had with her stating she still needs to dress/protect any blister site with a dry dressing and then wear the compression stocking over any blister or possible wound site. I discussed with her that this will discourage any potential wounds from getting bigger secondary to the edema. She voices understanding of this. Discussed continued elevation of lower extremities to control edema. Discussed compression stocking to maintain lower extremity edema. Today double Tubigrip compression was applied to bilateral lower extremities. We will continue to monitor bilateral lower extremity wounds secondary to her edema in the dorsal second digit of the left foot. Discussed diabetic management today and continuing proper diabetic diet for tight glycemic control. Discussed continued work to lower her hemoglobin A1c. She is following with apartment rental agent/PCP for diabetic management. Encouraged shoe gear to be worn at all times and to avoid barefoot. Discussed socks include barefoot. Encouraged daily foot checks for signs of ulcers, cuts, pressure wounds, infections. Discussed calling office or wound center should she notice anything suspicious. The following work up and care recommendations were made: Dressing: Tubigrip compression dressing bilateral. Wash: Soap and water Tissue growth optimization: None Offload: Continue to offload by elevating feet at times of rest. Vascular: Weakly palpable DP and PT pulses with adequate capillary fill time to the digits. Do not feel the vascular is impeding healing status. Edema: Edema well-controlled at this time. Recommend continued use of compression dressing via Daniel wrap, Tubigrip, or compression stockings. Infection: No signs of infection Pain: May take [id number] Tylenol for discomfort Host factors: DM type II with peripheral polyneuropathy, CKD stage V on dialysis, bilateral lower extremity edema, debility With being healed she is being discharged from the wound care center today. I answered all the patient's questions. To return to the wound healing center as needed or call sooner if the patient has any questions or concerns.
== END 2022-11-26 08:11 | disposition home or self-care (01) ==
LOC: WC 09:05
PROVIDERS: PCP Family Medicine; Referring Provider Student in an Organized Health Care Education/Training Program; Visit Provider Student in an Organized Health Care Education/Training Program
DX: E11.621 Type 2 diabetes mellitus with foot ulcer (principal); L97.222 Non-pressure chronic ulcer of left calf with fat layer exposed; E11.65 Type 2 diabetes mellitus with hyperglycemia; E11.42 Type 2 diabetes mellitus with diabetic polyneuropathy; R53.1 Weakness; Z96.649 Presence of unspecified artificial hip joint; R53.81 Other malaise; R60.0 Localized edema
CPT/HCPCS: 99213; G0463

== ENCOUNTER 2022-11-15 17:13 | Emergency (ER) | payer MEDICARE, MEDICAID, SELFPAY ==
[2022-11-15 17:14] VITALS: BP 203/165; PULSE 87; RESP 22; TEMP 36.7; O2SAT 98; BMI 23.6
[2022-11-15 17:23] VITALS: BP 161/68
--- NOTE | 2022-11-15 18:06 | EKG12_ITS ---
Test Reason : WEAKNESS Blood Pressure : / mmHG Vent. Rate : 087 BPM Atrial Rate : 087 BPM P-R Int : 180 ms QRS Dur : 088 ms QT Int : 370 ms P-R-T Axes : 063 029 078 degrees QTc Int : 445 ms Normal sinus rhythm Possible Left atrial enlargement Nonspecific T wave abnormality Abnormal ECG Confirmed by STACY BHAKTA ([id number]), newspaper editor managing CATHIE STEVENS ([id number]) on 11/20/2022 9:01:56 AM Referred By: Confirmed By:STACY BHAKTA
--- NOTE | 2022-11-15 18:07 | EX.ED.DYSGE1 ---
HPI History of Present Illness Chief Complaint: Weakness Informant: patient and spouse/S.O. Narrative Narrative: Patient presents in dialysis center secondary to weakness. Patient reported was not feeling well when she went to dialysis. Her blood sugar was not checked, although significant other suspects it was high. They completed her dialysis run and patient nearly fell out of her wheelchair. The transport staff was not comfortable taking her back home so 911 was called and she was brought to the emergency room. Patient reports generalized weakness. She denies chest pain or abdominal pain. No vomiting or diarrhea. It appears her blood sugar was around 400 for EMS. She states her blood sugar is usually around 200. She does not know how much fluid was taken off at dialysis. She does not know her dry weight. [facility] Medical History Accidental fall Anemia Arthritis Bilateral pleural effusion Cardiology follow-up encounter Chronic pain syndrome CKD (chronic kidney disease) stage 4, GFR 15-29 ml/min Closed intertrochanteric fracture of left hip Depression Diabetes Diabetes mellitus with hyperglycemia Dietary restriction Difficulty chewing Essential hypertension Excessive bleeding Gastric reflux High cholesterol History of echocardiogram History of edema History of orthostatic hypotension History of renal dialysis History of renal disease History of stress test HLD (hyperlipidemia) HTN (hypertension) Hx of orthostatic hypotension Injury of head and neck Insulin dependent diabetes mellitus Low iron Malnutrition Migraine headache Migraine without aura Non-smoker Post-concussion syndrome Symptomatic anemia Syncope Transfusion of blood during current hospitalisation Type II diabetes mellitus Uses wheelchair Vertigo Vomiting Walker as ambulation aid Wears glasses Home Medications aspirin 81 mg chewable tablet 81 mg PO QHS HEART HEALTH 12/15/19 [History Last Taken 07/17/22] atorvastatin 40 mg tablet 40 mg PO QHS CHOLESTEROL 12/15/19 [History Last Taken 04/13/22] clonidine HCl 0.3 mg tablet 0.3 mg PO TID BLOOD PRESSURE 01/06/22 [History Last Taken 04/14/22] insulin lispro 100 unit/mL subcutaneous pen (Humalog KwikPen (U-100) Insulin) 8 unit subcut TIDCM diabetes 01/06/22 [History Last Taken 04/14/22] sertraline 50 mg tablet 50 mg PO QHS DEPRESSION 01/06/22 [History Last Taken 04/14/22] polyethylene glycol 3350 17 gram oral powder packet 17 g PO DAILY PRN Constipation 02/13/22 [History Last Taken 03/13/22] omeprazole 20 mg capsule,delayed release 20 mg PO DAILY gerd 04/30/22 [History Last Taken Unknown] diltiazem HCl 180 mg capsule,extended release 24 hr 180 mg PO DAILY #0 caps 05/04/22 [Rx Last Taken Unknown] hydralazine 50 mg tablet 100 mg (2 x 50 mg) PO TID #0 tabs 05/04/22 [Rx Last Taken Unknown] pregabalin 75 mg capsule 75 mg PO BID #10 caps 05/04/22 [Rx Last Taken Unknown] calcium acetate(phosphat bind) 667 mg capsule 667 mg PO TID 05/25/22 [History Last Taken Unknown] tramadol 50 mg tablet 50 mg PO Q6H PRN pain 3 days #5 tabs 05/30/22 [Rx Last Taken Unknown] insulin glargine 100 unit/mL (3 mL) subcutaneous pen (Lantus Solostar U-100 Insulin) 10 unit subcut QPM 06/14/22 [History Last Taken Unknown] Allergy/AdvReac Type Severity Reaction Status Date / Time metformin AdvReac Diarrhea Verified 11/16/22 00:55 Family History Mother Hypertension Father Cancer lymphoma, leukemia Emphysema of lung Hypertension Grandmother Diabetes CVA (cerebral vascular accident) Surgical History History of cholecystectomy History of esophagogastroduodenoscopy (EGD) History of mandibular surgery Hx of colonoscopy S/P arteriovenous (AV) fistula creation S/P arteriovenous (AV) fistula repair S/P dialysis catheter insertion Social History household members: significant other housing: correction Smoking Status: Never smoker alcohol intake: never substance use type: does not use ROS ROS ED Constitutional Constitutional ED: Denies chills or fever(s) Eyes Eyes: Denies change in vision or discharge from eye(s) ENT ENT ED: Denies discharge from eye(s), rhinorrhea or sore throat Cardiovascular Cardiovascular: Denies chest pain or palpitations Respiratory/Chest Respiratory/Chest: Denies cough or dyspnea Gastrointestinal Gastrointestinal: Denies abdominal pain, nausea or vomiting Musculoskeletal Musculoskeletal: Denies back pain or extremity pain Integumentary Denies Abrasions or rash Neurologic Neurologic: Reports weakness; Denies headache(s) Psychiatric Psychiatric: Denies anxiety or depression Allergic/Immunologic Allergic/Immunologic ED: Denies lip swelling or urticaria EXAM Physical Exam Narrative Exam Narrative: Patient sitting in bed no acute distress. Answers questions appropriately. Const Vital Signs: 11/15/22 17:14 11/15/22 17:23 11/15/22 17:23 Temperature 98.1 F Temperature Source Temporal Pulse Rate 87 Respiratory Rate 22 H Respiratory Effort Normal Blood Pressure 203/165 H 161/68 H Blood Pressure Mean 177 99 Pulse Ox 98 Oxygen Delivery Method Room Air 11/15/22 18:36 11/15/22 23:20 11/15/22 23:25 Temperature Temperature Source Pulse Rate 86 82 78 Respiratory Rate 9 L 18 16 Respiratory Effort Blood Pressure 141/66 H 134/68 H 134/68 H Blood Pressure Mean 91 90 Pulse Ox 96 97 97 Oxygen Delivery Method Room Air Positive well nourished and well developed General Appearance ED: well developed Eyes EOMs intact bilaterally Chest Wall inspection of chest normal and palpation of chest normal Resp normal respiratory effort and clear to auscultation bilaterally Cardio regular rate and regular rhythm GI non-tender Auscultation: normoactive bowel sounds Extremity normal to inspection Neuro oriented x3 Neuro Narrative: No focal neurologic deficits. Psych Psych Narrative: Flat affect. MDM MDM MDM Narrative Medical decision making narrative: Patient placed on satellite project site monitor. EKG obtained to evaluate for cardiac arrhythmia/ischemia. Labwork obtained to evaluate for leukocytosis, anemia, and electrolyte derangement. History & Record Review Discussion w/independent historian: EMS personnel, Patient and Significant other Additional record(s) reviewed:: Prior inpatient record and Prior ED visit Lab Data Attestation: I reviewed the patient's lab results. Labs: Laboratory Results - last 24 hr 11/15/22 11/15/22 11/15/22 18:20 22:02 23:15 WBC 9.9 RBC 4.23 Hgb 12.0 Hct 38.8 MCV 91.7 MCH 28.4 MCHC 30.9 L RDW Std Deviation 57.1 H RDW Coeff of Chris 17.2 H Plt Count 119 L MPV 10.5 Immature Gran % (Auto) 0.400 Neut % (Auto) 88.7 H Lymph % (Auto) 5.3 L [place] % (Auto) 4.8 Eos % (Auto) 0.3 Baso % (Auto) 0.5 Absolute Neuts (auto) 8.8 H Absolute Lymphs (auto) 0.53 L Nucleated RBC % 0 Differential Comment SEE COMMENT Platelet Estimate SLT DEC RBC Morphology N CHROM Anisocytosis RARE Macrocytosis RARE Sodium 131 L Potassium 4.2 Chloride 94 L Carbon Dioxide 29.0 Anion Gap 8 BUN 17 Creatinine 3.37 H Estim Creat Clear Calc 15.97 Est GFR (MDRD) Af Amer 18 L Est GFR (MDRD) Non-Af 15 L BUN/Creatinine Ratio 5.0 L Glucose 383 H Calcium 8.3 L Total Bilirubin 0.40 Direct Bilirubin 0.15 AST 20 ALT 22 Alkaline Phosphatase 176 H Total Protein 7.3 Albumin 3.1 L Globulin 4.2 POC Glucose 420 H 342 H EKG Initial EKG: Attestation: I personally reviewed and interpreted this EKG as follows: Interpretation: Sinus Rhythm (Sinus 87 with no acute ischemia.) Additional Tests and Interventions Additional Tests or Interventions: CBC was normal white count 9.9 with a hemoglobin of 12.0. 88% neutrophils are noted. Chemistry studies reveal sodium of 131 and a chloride of 94. BUN is 17 and creatinine is 3.37. Glucose is elevated at 383. LFTs significant only for an alk phos of 176. Given the patient is on dialysis she was not given IV fluids to treat her hyperglycemia. She is unsure how much fluid was taken off at dialysis today and does not know her dry weight. Repeat blood sugar is 420. She is given 10 units of lispro. After 40 minutes her blood sugar has come down 80 points and is now reading 342. Patient be discharged home to continue her normal insulin regimen. She is comfortable with the plan. Discharge Plan Triage Chief Complaint: Weakness ED Provider: Linda Hernandez Dx/Rx/DC Orders Clinical Impression: Hyperglycemia, Weakness Instructions: ED Diabetic Hyperglycemia, ED Weakness (Uncertain Cause) Prescriptions: No Action atorvastatin 40 MG tablet 40 mg PO QHS aspirin 81 MG tablet,chewable 81 mg PO QHS clonidine HCl 0.3 MG tablet 0.3 mg PO TID insulin lispro [Humalog KwikPen Insulin] 100 unit/mL insulin pen 8 unit subcut TIDCM Rx Instructions: with meals sertraline 50 mg tablet 50 mg PO QHS polyethylene glycol 3350 17 gram powder in packet 17 g PO DAILY PRN (Reason: Constipation) omeprazole 20 mg Capsule,Delayed Release(Dr/Ec) 20 mg PO DAILY diltiazem HCl 180 mg Capsule,Extended Release 24hr 180 mg PO DAILY Qty: 0 0RF hydralazine 50 mg Tablet 100 mg PO TID Qty: 0 0RF pregabalin 75 mg Capsule 75 mg PO BID Qty: 10 0RF calcium acetate(phosphat bind) 667 mg Capsule 667 mg PO TID tramadol 50 mg tablet 50 mg PO Q6H PRN (Reason: pain) 3 Days Qty: 5 0RF insulin glargine [Lantus Solostar U-100 Insulin] 100 unit/mL (3 mL) Insulin Pen 10 unit SUBCUT QPM Primary Care Provider: Dennys Serrano Referrals: Dennys Serrano MD [Primary Care Provider] - 1 Week if not improving Disposition Disposition: Home, Self Care Discharge Date/Time: 11/15/22 23:27
[2022-11-15 18:29] LABS: Absolute Lymphocyte Count 0.53 X10^3/uL (0.83-4.51); Absolute Neutrophil Count 8.8 X10^3/uL (2.0-7.7); Basophil# 0.05 X10^3/uL; Basophil% 0.5 % (0-1); Eosinophil# 0.03 X10^3/uL; Eosinophils% 0.3 % (0-5); Hematocrit 38.8 % (37-47); Lymphocyte # 0.53 X10^3/ul (0.83-4.51); Lymphocyte % 5.3 % (19-41); Mean Corp Hgb Conc 30.9 g/dL (32-36); Mean Corpuscular Hgb 28.4 pg (27.0-32.0); Mean Corpuscular Volume 91.7 fL (81-99); Mean Platelet Vol. 10.5 fl (6.2-12.0); Monocyte# 0.48 X10^3/uL; Monocyte% 4.8 % (0-10); NRBC Flagged by Analyzer 0 % (0-5); Neutrophil % 88.7 % (47-70); POSITIVE DIFFERENTIAL YES; Platelet Count 119 K/mm3 (150-450); RBC Distribution Width CV 17.2 % (11.6-14.6); RBC Distribution Width SD 57.1 fl (35.1-43.9); Red Blood Count 4.23 M/mm3 (4.2-5.4); White Blood Count 9.9 K/mm3 (4.4-11.0)
[2022-11-15 18:36] VITALS: BP 141/66; PULSE 86; RESP 9; O2SAT 96
[2022-11-15 18:43] LABS: AST(SGOT) 20 U/L (15-37); Alanine Aminotransfer ALT/SGPT 22 U/L (13-56); Albumin, Serum 3.1 g/dL (3.2-5.0); Alkaline Phosphatase 176 U/L (45-117); Anion Gap 8 (5-15); BUN 17 mg/dL (7-18); Bilirubin, Direct 0.15 mg/dL (0.00-0.30); Calcium,Total 8.3 mg/dL (8.5-10.1); Chloride 94 mmol/L (98-107); Creatinine, Serum 3.37 mg/dL (0.55-1.02); EST Glomerular Filtration Rate 15 mL/min (>60); Est Glom Filt Rate - Afr Amer 18 mL/min (>60); Estimated Creatinine Clearance 15.97 ml/min; Globulin 4.2 g/dL (2.2-4.2); Glucose 383 mg/dL (74-106); Potassium 4.2 mmol/L (3.5-5.1); Protein, Total 7.3 g/dL (6.4-8.2); Sodium Level 131 mmol/L (136-145)
[2022-11-15 18:56] LABS: Differential Indicated SCAN CRITERIA MET
[2022-11-15 18:58] LABS: Platelet Estimate SLT DEC (ADEQ)
[2022-11-15 18:59] LABS: Anisocytosis RARE; Macrocytosis RARE; Red Cell Morphology N CHROM NORMAL (NORM C&C)
[2022-11-15 22:20] LABS: Bedside Glucose 420 mg/dL (74-106)
[2022-11-15] MEDS: Insulin Lispro 100 UNIT/ML INSULN.PEN 10 UNIT SC (22:28)
[2022-11-15 23:20] VITALS: BP 134/68; PULSE 82; RESP 18; O2SAT 97
[2022-11-15 23:25] VITALS: BP 134/68; PULSE 78; RESP 16; O2SAT 97
[2022-11-15 23:33] LABS: Bedside Glucose 342 mg/dL (74-106)
== END 2022-11-15 23:27 | disposition home or self-care (01) ==
PROVIDERS: Emergency Provider Emergency Medicine; PCP Family Medicine; Visit Provider Emergency Medicine
DX: R53.1 Weakness (principal); E11.65 Type 2 diabetes mellitus with hyperglycemia; E11.22 Type 2 diabetes mellitus with diabetic chronic kidney disease; N18.4 Chronic kidney disease, stage 4 (severe); Z79.4 Long term (current) use of insulin; I12.9 Hypertensive chronic kidney disease with stage 1 through stage 4 chronic kidney disease, or unspecified chronic kidney disease; E78.00 Pure hypercholesterolemia, unspecified; Z79.899 Other long term (current) drug therapy; Z79.82 Long term (current) use of aspirin; F32.A Depression, unspecified; K21.9 Gastro-esophageal reflux disease without esophagitis; Z90.49 Acquired absence of other specified parts of digestive tract
CPT/HCPCS: 80048; 80076; 82962; 85025; 93005; 99285

== ENCOUNTER 2022-11-16 00:54 | Emergency (ER) | payer MEDICARE, MEDICAID, SELFPAY ==
[2022-11-16 00:56] VITALS: BP 140/84; PULSE 86; RESP 18; TEMP 36.7; O2SAT 99; BMI 23.2
--- NOTE | 2022-11-16 01:14 | CT_ITS ---
EXAM: CT HEAD WITHOUT INTRAVENOUS CONTRAST CLINICAL INDICATION: syncope TECHNIQUE: Multiple axial images were obtained of the head without intravenous contrast. This CT exam was performed using one or more of the following dose reduction techniques: automated exposure control, adjustment of the mA and/or kV according to patient size, and/or use of iterative reconstruction technique. RADIATION DOSE: CTDIvol = 44.99 mGy, DLP = 812.98 mGy-cm COMPARISON: Head CT 04/30/2022 FINDINGS: BRAIN AND EXTRA-AXIAL SPACES: Diffuse cerebral volume loss. Periventricular small vessel ischemic changes. No intra- or extra-axial hemorrhage. No intracranial mass or mass effect. Posterior fossa structures are unremarkable. No hydrocephalus. Basal cisterns are patent. BONES/JOINTS: Unremarkable. No discrete lytic or blastic abnormalities. VASCULATURE: Vascular calcifications. SINUSES: Unremarkable as visualized. Clear. MASTOID AIR CELLS: Unremarkable. Clear. ORBITS: Visualized globes, extraocular muscles, optic nerves and retrobulbar fat appear unremarkable. CT/Brain/Head without Contrast IMPRESSION: 1. No acute intracranial abnormalities. 2. Age-related changes. Electronically Signed: Yanick Casillas MD at 2:07 EDT ,
--- NOTE | 2022-11-16 01:14 | EKG12_ITS ---
Test Reason : Dysrhythmia Blood Pressure : / mmHG Vent. Rate : 087 BPM Atrial Rate : 087 BPM P-R Int : 172 ms QRS Dur : 084 ms QT Int : 370 ms P-R-T Axes : 028 027 074 degrees QTc Int : 445 ms Normal sinus rhythm Nonspecific T wave abnormality Abnormal ECG When compared with ECG of 15-NOV-2022 18:14, MANUAL COMPARISON REQUIRED, DATA IS UNCONFIRMED Confirmed by ALYSSIA AMEZCUA, KARLA ([id number]), greeting card editor CATHIE STEVENS ([id number]) on 01/16/2023 2:09:52 PM Referred By: NICHELLE Confirmed By:KARLA CADE MD
[2022-11-16 01:24] LABS: Absolute Lymphocyte Count 1.23 X10^3/uL (0.83-4.51); Absolute Neutrophil Count 9.2 X10^3/uL (2.0-7.7); Basophil# 0.05 X10^3/uL; Basophil% 0.4 % (0-1); Eosinophil# 0.02 X10^3/uL; Eosinophils% 0.2 % (0-5); Hematocrit 36.5 % (37-47); Hemoglobin 11.5 g/dL (12.0-15.0); Lymphocyte # 1.23 X10^3/ul (0.83-4.51); Lymphocyte % 10.9 % (19-41); Mean Corp Hgb Conc 31.5 g/dL (32-36); Mean Corpuscular Hgb 28.9 pg (27.0-32.0); Mean Corpuscular Volume 91.7 fL (81-99); Monocyte# 0.71 X10^3/uL; Monocyte% 6.3 % (0-10); NRBC Flagged by Analyzer 0 % (0-5); Neutrophil # 9.17 X10^3/uL (2.7-7.7); Neutrophil % 81.6 % (47-70); Platelet Count 154 K/mm3 (150-450); RBC Distribution Width CV 17.2 % (11.6-14.6); RBC Distribution Width SD 57.2 fl (35.1-43.9); Red Blood Count 3.98 M/mm3 (4.2-5.4); White Blood Count 11.3 K/mm3 (4.4-11.0)
[2022-11-16 01:41] LABS: Anion Gap 7 (5-15); BUN 22 mg/dL (7-18); BUN/Creat Ratio 5.4 RATIO (10-20); Calcium,Total 8.6 mg/dL (8.5-10.1); Chloride 94 mmol/L (98-107); Creatinine, Serum 4.11 mg/dL (0.55-1.02); EST Glomerular Filtration Rate 12 mL/min (>60); Est Glom Filt Rate - Afr Amer 14 mL/min (>60); Glucose 250 mg/dL (74-106); Magnesium 2.2 mg/dL (1.6-2.6); Potassium 4.4 mmol/L (3.5-5.1); Sodium Level 131 mmol/L (136-145)
--- NOTE | 2022-11-16 02:53 | EDS_ITS ---
HPI History of Present Illness Chief Complaint: Syncope Informant: patient and EMS Narrative Narrative: Patient is a 62-year-old female with past medical history of diabetes as well as chronic kidney disease on dialysis. Patient was seen earlier today secondary to hyperglycemia. She was discharged home and patient states that she walked from the car into her house and then remembers waking up on the living room floor. She states that there is no history of bleeding disorder or blood thinner use. She states she does not remember having chest pain or palpitations prior to the syncopal event however secondary to the fact that it occurred after discharge t here was concern this could be cardiac in nature or have caused underlying head injury so she was brought back in for evaluation [facility] Medical History Accidental fall Anemia Arthritis Bilateral pleural effusion Cardiology follow-up encounter Chronic pain syndrome CKD (chronic kidney disease) stage 4, GFR 15-29 ml/min Closed intertrochanteric fracture of left hip Depression Diabetes Diabetes mellitus with hyperglycemia Dietary restriction Difficulty chewing Essential hypertension Excessive bleeding Gastric reflux High cholesterol History of echocardiogram History of edema History of orthostatic hypotension History of renal dialysis History of renal disease History of stress test HLD (hyperlipidemia) HTN (hypertension) Hx of orthostatic hypotension Injury of head and neck Insulin dependent diabetes mellitus Low iron Malnutrition Migraine headache Migraine without aura Non-smoker Post-concussion syndrome Symptomatic anemia Syncope Transfusion of blood during current hospitalisation Type II diabetes mellitus Uses wheelchair Vertigo Vomiting Walker as ambulation aid Wears glasses Home Medications aspirin 81 mg chewable tablet 81 mg PO QHS HEART HEALTH 12/15/19 [History Last Taken 07/17/22] atorvastatin 40 mg tablet 40 mg PO QHS CHOLESTEROL 12/15/19 [History Last Taken 04/13/22] clonidine HCl 0.3 mg tablet 0.3 mg PO TID BLOOD PRESSURE 01/06/22 [History Last Taken 04/14/22] insulin lispro 100 unit/mL subcutaneous pen (Humalog KwikPen (U-100) Insulin) 8 unit subcut TIDCM diabetes 01/06/22 [History Last Taken 04/14/22] sertraline 50 mg tablet 50 mg PO QHS DEPRESSION 01/06/22 [History Last Taken 04/14/22] polyethylene glycol 3350 17 gram oral powder packet 17 g PO DAILY PRN Constipation 11/15/22 [History Last Taken 03/13/22] omeprazole 20 mg capsule,delayed release 20 mg PO DAILY gerd 04/30/22 [History Last Taken Unknown] diltiazem HCl 180 mg capsule,extended release 24 hr 180 mg PO DAILY #0 caps 05/04/22 [Rx Last Taken Unknown] hydralazine 50 mg tablet 100 mg (2 x 50 mg) PO TID #0 tabs 05/04/22 [Rx Last Taken Unknown] pregabalin 75 mg capsule 75 mg PO BID #10 caps 05/04/22 [Rx Last Taken Unknown] calcium acetate(phosphat bind) 667 mg capsule 667 mg PO TID 05/25/22 [History Last Taken Unknown] tramadol 50 mg tablet 50 mg PO Q6H PRN pain 3 days #5 tabs 05/30/22 [Rx Last Taken Unknown] insulin glargine 100 unit/mL (3 mL) subcutaneous pen (Lantus Solostar U-100 Insulin) 10 unit subcut QPM 06/14/22 [History Last Taken Unknown] Allergy/AdvReac Type Severity Reaction Status Date / Time metformin AdvReac Diarrhea Verified 11/16/22 00:55 Family History Mother Hypertension Father Cancer lymphoma, leukemia Emphysema of lung Hypertension Grandmother Diabetes CVA (cerebral vascular accident) Surgical History History of cholecystectomy History of esophagogastroduodenoscopy (EGD) History of mandibular surgery Hx of colonoscopy S/P arteriovenous (AV) fistula creation S/P arteriovenous (AV) fistula repair S/P dialysis catheter insertion Social History household members: significant other housing: residential Smoking Status: Never smoker alcohol intake: never substance use type: does not use ROS ROS ED Constitutional Constitutional ED: Denies chills or fever(s) Eyes Eyes: Denies blurry vision or change in vision ENT ENT ED: Denies sore throat Cardiovascular Cardiovascular: Denies chest pain, palpitations or racing heartbeat Respiratory/Chest Respiratory/Chest: Denies cough or dyspnea Gastrointestinal Gastrointestinal: Denies abdominal pain, diarrhea, nausea or vomiting Musculoskeletal Musculoskeletal: Denies back pain, myalgias or neck pain Integumentary Denies rash Neurologic Neurologic: Reports other Details: Positive syncope ; Denies headache(s) Hematologic/Lymphatic Hematologic/Lymphatic: Denies easy bleeding or easy bruising EXAM Physical Exam Const Vital Signs: 11/16/22 00:56 11/16/22 00:59 11/16/22 03:05 Temperature 98.0 F Temperature Source Temporal Pulse Rate 86 74 Respiratory Rate 18 16 Respiratory Effort Normal Respiratory Pattern Normal Blood Pressure 140/84 H 141/93 H Blood Pressure Mean 102 Pulse Ox 99 96 Oxygen Delivery Method Room Air Positive well developed and cachectic General Appearance ED: well developed and cachectic Nutritional Appearance: cachectic HEENT Reports dry mucous membranes HEENT Narrative: No tongue or cheek biting noted to suggest seizure activity No signs of depressed or basilar skull fracture Mucous membranes are dry and tacky without secondary changes to suggest posterior pharynx infection Mouth ED: Yes dry mucous membranes Mouth: dry mucous membranes Eyes PERRL and EOMs intact bilaterally General Eye ED: Negative for pale conjunctiva or scleral icterus Neck supple Neck Narrative: No bony deformity or step-off of the cervical spine no midline pain with palpation No nuchal rigidity or meningeal signs noted Chest Wall palpation of chest normal Chest Narrative: Dialysis catheter in place in the right chest wall without secondary changes to suggest infection and no bony deformity or crepitance noted Resp normal respiratory effort and clear to auscultation bilaterally Cardio regular rate and regular rhythm Rate: other Other Details: Carotid pulses are equal and symmetric GI non-tender and non-distended GI Narrative: Abdomen is soft nontender and nondistended with hypoactive bowel sounds. No voluntary guarding or rigidity. No pulsatile mass or fluid wave Auscultation: hypoactive bowel sounds Palpation: soft Back/Spine Back/Spine Narrative: No bony deformity or step-off of the thoracic or lumbar spine Extremity normal to inspection Extremity Narrative: Pelvis is stable and there is no shortening or external rotation of either lower extremity Neuro oriented x3 and CN's II-XII intact bilaterally Neuro Narrative: Cranial nerves II through XII are grossly intact there are no focal neurologic deficits. No pronator drift no dysmetria no truncal ataxia. NIH stroke scale score of 0 Sensorium / Orientation: alert Psych Psych Narrative: Patient has a flat affect Skin no rashes or lesions noted Skin Narrative: Skin turgor is increased consistent with dehydration No abrasions or ecchymosis noted MDM MDM MDM Narrative Medical decision making narrative: Patient presented to the ER awake and alert with normal neurologic exam and stable vitals and reported a syncopal event. Differential diagnosis is for orthostatic syncope versus cardiac dysrhythmia versus acute blood loss anemia versus electrolyte versus orthostatic syncope. Patient blood work was obtained and is very similar to her values from earlier today with stable H&H and chronic kidney disease. Electrolytes revealed no clinically significant findings and her glucose has dropped to 250. Head CT reveals no signs of mass or bleed. EKG showed normal sinus rhythm. Physical exam is consistent with dehydration and therefore she was given a 500 mL fluid bolus secondary to dehydration changes and the fact she is a dialysis patient. Following this she did report feeling better and she was ambulated throughout the ER and was able to do so without any increased weakness or syncopal event. Therefore do not feel there is need for admission as she is not requiring a blood transfusion her kidney function is not elevated above baseline and she has no significant electrolyte abnormality. Moreover she is able to walk without significant weakness or any type of syncopal change status post IV fluid. History & Record Review Discussion w/independent historian: Patient Lab Data Attestation: I reviewed the patient's lab results. Labs: Laboratory Results - last 24 hr 11/16/22 01:08 WBC 11.3 H RBC 3.98 L Hgb 11.5 L Hct 36.5 L MCV 91.7 MCH 28.9 MCHC 31.5 L RDW Std Deviation 57.2 H RDW Coeff of Chris 17.2 H Plt Count 154 MPV 11.0 Immature Gran % (Auto) 0.600 Neut % (Auto) 81.6 H Lymph % (Auto) 10.9 L [place] % (Auto) 6.3 Eos % (Auto) 0.2 Baso % (Auto) 0.4 Absolute Neuts (auto) 9.2 H Absolute Lymphs (auto) 1.23 Nucleated RBC % 0 Sodium 131 L Potassium 4.4 Chloride 94 L Carbon Dioxide 30.0 Anion Gap 7 BUN 22 H Creatinine 4.11 H Estim Creat Clear Calc 13.10 Est GFR (MDRD) Af Amer 14 L Est GFR (MDRD) Non-Af 12 L BUN/Creatinine Ratio 5.4 L Glucose 250 H Calcium 8.6 Magnesium 2.2 Radiography Diagnostic Testing: Clinical Impression(s) from Imaging Studies Brain CT 11/16/22 01:14 IMPRESSION: 1. No acute intracranial abnormalities. 2. Age-related changes. Electronically Signed: Yanick Casillas MD at 2:07 EDT , Discharge Plan Triage Chief Complaint: Syncope ED Provider: Mario Alberto Hooper Dx/Rx/DC Orders Clinical Impression: Syncope, CKD (chronic kidney disease), Essential hypertension, Type II diabetes mellitus, Dehydration Instructions: Diagnosing Syncope Prescriptions: No Action atorvastatin 40 MG tablet 40 mg PO QHS aspirin 81 MG tablet,chewable 81 mg PO QHS clonidine HCl 0.3 MG tablet 0.3 mg PO TID insulin lispro [Humalog KwikPen Insulin] 100 unit/mL insulin pen 8 unit subcut TIDCM Rx Instructions: with meals sertraline 50 mg tablet 50 mg PO QHS polyethylene glycol 3350 17 gram powder in packet 17 g PO DAILY PRN (Reason: Constipation) omeprazole 20 mg Capsule,Delayed Release(Dr/Ec) 20 mg PO DAILY diltiazem HCl 180 mg Capsule,Extended Release 24hr 180 mg PO DAILY Qty: 0 0RF hydralazine 50 mg Tablet 100 mg PO TID Qty: 0 0RF pregabalin 75 mg Capsule 75 mg PO BID Qty: 10 0RF calcium acetate(phosphat bind) 667 mg Capsule 667 mg PO TID tramadol 50 mg tablet 50 mg PO Q6H PRN (Reason: pain) 3 Days Qty: 5 0RF insulin glargine [Lantus Solostar U-100 Insulin] 100 unit/mL (3 mL) Insulin Pen 10 unit SUBCUT QPM Primary Care Provider: Dennys Serrano Referrals: Dennys Serrano MD [Primary Care Provider] - Disposition Disposition: Home, Self Care Discharge Date/Time: 11/16/22 03:07
[2022-11-16 03:05] VITALS: BP 141/93; PULSE 74; RESP 16; O2SAT 96
== END 2022-11-16 03:07 | disposition home or self-care (01) ==
PROVIDERS: Emergency Provider Emergency Medicine; PCP Family Medicine; Visit Provider Emergency Medicine
DX: R55 Syncope and collapse (principal); Z99.2 Dependence on renal dialysis; E11.22 Type 2 diabetes mellitus with diabetic chronic kidney disease; N18.4 Chronic kidney disease, stage 4 (severe); Z79.4 Long term (current) use of insulin; I12.9 Hypertensive chronic kidney disease with stage 1 through stage 4 chronic kidney disease, or unspecified chronic kidney disease; E78.5 Hyperlipidemia, unspecified; E86.0 Dehydration
CPT/HCPCS: 70450; 80048; 83735; 85025; 93005; 96360; 99285; J7040

== ENCOUNTER 2022-11-21 06:07 | Day surgery (SDC) | payer MEDICARE, MEDICAID, SELFPAY ==
[2022-11-21] VITALS (8 sets, daily range): BP systolic 125–178; BP diastolic 61–75; PULSE 80–90; RESP 16–18; TEMP 36.7–37; O2SAT 93–98; BMI 23.4
--- NOTE | 2022-11-21 06:56 | HP.PCM_ITS ---
History and Physical Date of Admission: 11/21/22 Visit Reasons: PROBLEM WITH ACCESS Chief Complaint: check fistula Insulation Board Back Tender Required: No Is patient in pain?: No Allergies metformin Adverse Reaction (Verified 10/31/22 13:46) Diarrhea Medications aspirin 81 mg chewable tablet 81 mg PO QHS HEART HEALTH 12/15/19 [History Confirmed 10/31/22] atorvastatin 40 mg tablet 40 mg PO QHS CHOLESTEROL 12/15/19 [History Confirmed 10/31/22] clonidine HCl 0.3 mg tablet 0.3 mg PO TID BLOOD PRESSURE 01/06/22 [History Confirmed 10/31/22] insulin lispro 100 unit/mL subcutaneous pen (Humalog KwikPen (U-100) Insulin) 8 unit subcut TIDCM diabetes 01/06/22 [History Confirmed 10/31/22] sertraline 50 mg tablet 50 mg PO QHS DEPRESSION 01/06/22 [History Confirmed 10/31/22] ferrous sulfate 325 mg (65 mg iron) tablet (FeroSul) 325 mg PO QHS SUPPLEMENT 02/13/22 [History Confirmed 10/31/22] polyethylene glycol 3350 17 gram oral powder packet 17 g PO DAILY PRN Constipation 02/13/22 [History Confirmed 10/31/22] multivitamin,tx-minerals 1 tab PO DAILY suppliment 04/30/22 [History Confirmed 0 10/31/22] omeprazole 20 mg capsule,delayed release 20 mg PO DAILY gerd 04/30/22 [History Confirmed 10/31/22] diltiazem HCl 180 mg capsule,extended release 24 hr 180 mg PO DAILY #0 caps 05/04/22 [Rx Confirmed 10/31/22] furosemide 20 mg tablet 60 mg (3 x 20 mg) PO BIDLX #0 tabs 05/04/22 [Rx Confirmed 10/31/22] hydralazine 50 mg tablet 100 mg (2 x 50 mg) PO TID #0 tabs 05/04/22 [Rx Confirmed 10/31/22] pregabalin 75 mg capsule 75 mg PO BID #10 caps 05/04/22 [Rx Confirmed 10/31/22] calcium acetate(phosphat bind) 667 mg capsule 667 mg PO TID 05/25/22 [History Confirmed 10/31/22] tramadol 50 mg tablet 50 mg PO Q6H PRN pain 3 days #5 tabs 05/30/22 [Rx Confirmed 10/31/22] insulin glargine 100 unit/mL (3 mL) subcutaneous pen (Lantus Solostar U-100 Insulin) 10 unit subcut QPM 06/14/22 [History Confirmed 10/31/22] PFS Medical History Accidental fall Anemia Arthritis Bilateral pleural effusion Cardiology follow-up encounter Chronic pain syndrome CKD (chronic kidney disease) stage 4, GFR 15-29 ml/min Closed intertrochanteric fracture of left hip Depression Diabetes Diabetes mellitus with hyperglycemia Dietary restriction Essential hypertension Excessive bleeding Gastric reflux High cholesterol History of echocardiogram History of edema History of orthostatic hypotension History of renal dialysis History of stress test HLD (hyperlipidemia) HTN (hypertension) Hx of orthostatic hypotension Injury of head and neck Insulin dependent diabetes mellitus Low iron Malnutrition Migraine headache Migraine without aura Non-smoker Post-concussion syndrome Symptomatic anemia Syncope Transfusion of blood during current hospitalisation Type II diabetes mellitus Uses wheelchair Vertigo Vomiting Wears glasses Surgical History History of cholecystectomy History of esophagogastroduodenoscopy (EGD) History of mandibular surgery Hx of colonoscopy S/P arteriovenous (AV) fistula creation S/P arteriovenous (AV) fistula repair S/P dialysis catheter insertion Family History Mother HypertensionFather Cancer lymphoma, leukemia Emphysema of lung HypertensionGrandmother Diabetes CVA (cerebral vascular accident) Social History household members: significant other housing: long-term Smoking Status: Never smoker alcohol intake: never substance use type: does not use HPI HPI Surgical H&P: Yes HPI: Patient is a 61 y/o F I am following s/p left forearm radiocephalic arteriovenous fistula creation on 07/18/[address] Krueger. Patient recently had a fistulogram by Dr. Krueger on 09/05 for failure to mature left forearm fistula. Findings included small left forearm radiocephalic hemodialysis fistula. No specific stenosis noted. Fistula was successfully treated with a 4 mm. Patient has very minute vessels. Patient currently has a right chest catheter placed during the fistulogram. She notes this catheter is giving dialysis difficulties and setting off alarms. Dr. Krueger acknowledged this is in perfect position. Dialysis center has referred the patient in the interim to be further evaluated for malfunctioning fistula. Patient denies any concerns with the fistula. She notes at her last Saturday treatment they attempted insertion of the needles 3 times before switching to her chest catheters. ROS General General: No weight change, appetite, fatigue, colon cancer, breast cancer or weakness HEENT HEENT: No difficulty swallowing, eye injury, eye surgery, swollen glands or hoarseness Endo Endocrine: No thyroid disease, diabetes mellitus, thyroid cancer, Hair loss, heat intolerance or cold intolerance Skin Skin: No rash or changing moles Breast Breast: No left breast lump, right breast lump, nipple discharge, breast pain, abnormal mammogram, abnormal US or breast enlargement Musc Musculoskeletal: No back problems, arthritis, rheumatoid arthritis, gout or joint pain Cardio Cardiovascular: No murmur, pacemaker, heart disease, atrial fibrillation, high blood pressure, heart attack, heart stent, palpitations, shortness of breat with exertion or chest pain Psych Psychiatric: No depression, anxiety or hearing voices Resp Respiratory: No shortness of breath, No sleep apnea, No cough, No COPD, No asthma, No emphysema and No wheezing Gastro Gastrointestinal: No abdominal pain, No nausea or vomiting, No diarrhea, No constipation, No blood in stool, No acid reflux, No hemorrhoids, No ulcers, No gallbladder problem and No black,tarry stools Jalil Hematologic: No blood thinners, No blood disorders, No bleeding, No anemia and No blood clots Neuro Neurologic: No system reviewed and no additional complaints, except as documented, No as per HPI, No abnormal gait, No abnormal hearing, No abnormal movements, No abnormal speech, No behavioral changes, No burning sensations, No confusion, No convulsions, No disequilibrium, No dizziness, No localized weakness, No frequent falls, No headache(s), No lack of coordination, No loss of vision, No memory loss, No numbness, No other visual disturbances, No radicular pain, No restless legs, No sensory deficit, No syncope, No tingling, No tremor(s), No weakness and No other Exam Const General: cooperative, comfortable, no acute distress and frail appearing [facility] Head: normal to inspection Eyes General: appearance normal, both eyes and all related structures Neck Neck: normal visual inspection Neck mass: No Chest Other: Chest, right- tunneled dialysis catheters intact Resp Effort & Inspection: normal respiratory effort Auscultation: clear to auscultation bilaterally Cardio Rate: regular rate Rhythm: regular rhythm GI Inspection: normal to inspection Palpation: soft Auscultation: normal bowel sounds Musc Cervical Spine: normal cervical lordosis Skin General: no rashes or lesions noted Neuro General: no focal motor deficits and CN's II-XI intact bilaterally Extrem Other: left forearm radiocephalic AV fistula- good pulse, weak bruit and thrill due to the size of the fistula. Dr. Krueger evaluated the fistula under ultrasound in the office. There is a split near the anastomosis. Area of starting point of revision was marked with permanent marker. The fistula is wide open however small in diameter. Psych Appearance: grossly normal Affect: normal affect Assessment and Plan Assessment and Plan (1) Problem with dialysis access: Status: Acute Qualifiers: Encounter type: sequela Qualified Code(s): T82.898S - Other specified complication of vascular prosthetic devices, implants and grafts, sequela Plan: Dr. Krueger has also evaluated this patient. Dr. Krueger will plan to perform a revision of left upper extremity radiocephalic arteriovenous fistula with new location more proximal to the original anastomosis, proximal to the split point. Procedure details, risks and benefits were explained to the patient. Ultrasound will be placed at bedside in for an additional evaluation prior to surgery. Patient has had the opportunity to ask and have questions answered. Patient verbally understands and agrees with the plan. Elevated blood glucose noted being treated with insulin. It is important to try to proceed on with revision of the fistula so that we can eliminate the use of her dialysis catheters. Cisco Krueger M.D., F.A.C.S.
--- NOTE | 2022-11-21 06:56 | DCINST_ITS ---
Discharge Instructions Procedure Fistula Diet Discharge Diet: Renal Diet Activity Discharge Activity: May Not Drive (for 2-3 days or while taking narcotic pain medications.), May Shower and May Take a Tub Bath (in 5 days.) Lifting Restrictions: 5 pounds Keep extremity elevated above heart level: - (Keep arm elevated above the heart level for 3 days.) Dressing / Incision Call your doctor if your incision/area has: Continuous Slow Oozing, Sudden Increased Bleeding (apply pressure and call your doctor.), Increased Pain/ Swelling, Increased Redness and Foul Smelling Discharge Call your doctor if you observe: Fever of 101 or Higher Suture Line Care: Avoid Pulling/Pushing and Avoid Pinching/Bending Cleanse incision/area with: Keep Dressing Clean & Dry Additional Dressing/Incision Instructions:: Change or remove dressing in one day. May protect with a gauze bandaid. Follow Up Care Please Follow Up With: Cisco Krueger MD When: Call [phone] to make an appointment for suture removal and follow up in 1 week. Test Results: Test results from this visit will be discussed in further detail at your follow- up appointment, if applicable. Discharge Plan Admission Attending Provider: Cisco Krueger Primary Care Provider: Dennys Serrano Discharge Orders/Prescriptions Prescriptions: No Action atorvastatin 40 MG tablet 40 mg PO QHS aspirin 81 MG tablet,chewable 81 mg PO QHS clonidine HCl 0.3 MG tablet 0.3 mg PO TID insulin lispro [Humalog KwikPen Insulin] 100 unit/mL insulin pen 8 unit subcut TIDCM Rx Instructions: with meals sertraline 50 mg tablet 50 mg PO QHS polyethylene glycol 3350 17 gram powder in packet 17 g PO DAILY PRN (Reason: Constipation) omeprazole 20 mg Capsule,Delayed Release(Dr/Ec) 20 mg PO DAILY diltiazem HCl 180 mg Capsule,Extended Release 24hr 180 mg PO DAILY Qty: 0 0RF hydralazine 50 mg Tablet 100 mg PO TID Qty: 0 0RF pregabalin 75 mg Capsule 75 mg PO BID Qty: 10 0RF calcium acetate(phosphat bind) 667 mg Capsule 667 mg PO TID tramadol 50 mg tablet 50 mg PO Q6H PRN (Reason: pain) 3 Days Qty: 5 0RF insulin glargine [Lantus Solostar U-100 Insulin] 100 unit/mL (3 mL) Insulin Pen 10 unit SUBCUT QPM Referrals / Follow Up: Dennys Serrano MD [Primary Care Provider] - Disposition Disposition (needs filled in before D/C Order can be placed): Home, Self Care
[2022-11-21] MEDS: Insulin Lispro 100 UNIT/ML INSULN.PEN 8 UNIT SC (07:06)
[2022-11-21] MEDS: Cefazolin 2 GM in 0.9% Normal Saline 100 ML IV (07:19)
[2022-11-21 07:35] LABS: Bedside Glucose 415 mg/dL (74-106)
[2022-11-21] MEDS: Bupivacaine Mpf 0.5% 30 ML VIAL (07:45)
[2022-11-21] MEDS: Lidocaine 1% (20 ml mdv) 20 ML Vial (07:45)
[2022-11-21] MEDS: Heparin Injection (Vial) 5,000 UNIT/ML VIAL 5000 UNIT (07:58)
--- NOTE | 2022-11-21 09:03 | OP.PCM_ITS ---
Report of Operation Date of Procedure: 11/21/22 Pre-Operative Diagnosis: Failure to mature left forearm radiocephalic arteriove nous fistula creation Post-Operative Diagnosis: Same Surgery/Procedure Performed:: Recreation left forearm radiocephalic arteriovenous hemodialysis fistula Description of Surgical Findings:: Timeout and informed consent was obtained. 62-year-old female was taken to the operating placed upon the table underwent monitored anesthesia care. She received 2 g of Ancef intravenously. The left upper extremity was sterilely prepped and draped. I did use ultrasound to map the course of the cephalic vein more proximal in the forearm at a branch point where the vein was larger. 1% lidocaine mixed 50-50 with 0.5% Marcaine was used as a local anesthetic. Throughout the procedure a total of 19 cc was used. Local was instilled. An oblique incision was made in the radial aspect of the left mid forearm the vein was identified it was tediously dissected free there was inflammatory changes of the cephalic vein and possibly related to previous lumen angioplasty attempt however side branches were secured with hemoclips the vein was mobilized at the branch point then tedious sharp and blunt dissection was used to identify the radial artery sufficient length of mobilize the patient received 5000 units of heparin the vein was secured distally with hemoclips and 3-0 Vicryl suture ligatures the vein at the branch point was spatulated then peripheral vascular clamps were placed on the radial artery and 11 blade was used to make an arteriotomy which was extended with Glass scissors. A end-to-side venous to art erial anastomosis was created with a running 7-0 Prolene. The spatulated vein made for very nice anastomosis. Clamps were removed there was instant hemostasis was excellent flow in the newly created fistula the vein appeared like it was going to be of adequate caliber and adequate depth. The patient received 20 mg of protamine as reversal. The subdermal tissues were approximated with interrupted 3-0 Vicryl. Skin edges approximated running subicular 4-0 Monocryl. Steri-Strips Telfa tape dressings soft roll Daniel wrap applied. Sponge and instrument and needle counts were reported to the surgeon to be correct. Specimens none. Drains none. Blood loss minimal. The patient was taken to the recovery room in satisfied condition without apparent complication. Her hand was viable and there was a good Doppler signal at the left radial artery distal to the fistula. Cisco Krueger M.D., F.A.C.S. Surgeon: Cisco Krueger Type of Anesthesia: Local MAC Anesthesiologist: Mu Piper
[2022-11-21 09:40] LABS: Bedside Glucose 254 mg/dL (74-106)
== END 2022-11-21 10:28 | disposition home or self-care (01) ==
LOC: SDC 06:09 → AC 06:39
PROVIDERS: PCP Family Medicine; Referring Provider Surgery; Visit Provider Surgery
PROC: (CPT 36820; principal; 2022-11-21 07:15)
DX: T82.898A Other specified complication of vascular prosthetic devices, implants and grafts, initial encounter (principal); E11.22 Type 2 diabetes mellitus with diabetic chronic kidney disease; N18.4 Chronic kidney disease, stage 4 (severe); Z79.4 Long term (current) use of insulin; G89.4 Chronic pain syndrome; D64.9 Anemia, unspecified; I12.9 Hypertensive chronic kidney disease with stage 1 through stage 4 chronic kidney disease, or unspecified chronic kidney disease; E78.5 Hyperlipidemia, unspecified; Z79.82 Long term (current) use of aspirin; Y82.9 Unspecified medical devices associated with adverse incidents
CPT/HCPCS: 36820; 01844; 82962; A4648; J7040; J2405

== ENCOUNTER 2023-03-13 09:53 | Day surgery (SDC) | payer MEDICARE, MEDICAID, SELFPAY ==
[2023-03-12 07:31] VITALS: BMI 24.3
--- NOTE | 2023-03-13 09:58 | HP.PCM_ITS ---
History and Physical Date of Admission: 03/13/23 Visit Reasons: CVC REMOVAL Chief Complaint: fistula check/discuss surgery [employer] Required: No Is patient in pain?: No Allergies metformin Adverse Reaction (Verified 03/11/23 09:32) Diarrhea Medications aspirin 81 mg chewable tablet 81 mg PO QHS HEART HEALTH 12/15/19 [History Confirmed 03/11/23] atorvastatin 40 mg tablet 40 mg PO QHS CHOLESTEROL 12/15/19 [History Confirmed 03/11/23] insulin lispro 100 unit/mL subcutaneous pen (Humalog KwikPen (U-100) Insulin) 8 unit subcut TIDCM diabetes 01/06/22 [History Confirmed 03/11/23] sertraline 50 mg tablet 50 mg PO QHS DEPRESSION 01/06/22 [History Confirmed 03/11/23] polyethylene glycol 3350 17 gram oral powder packet 17 g PO DAILY PRN Constipation 02/13/22 [History Confirmed 03/11/23] omeprazole 20 mg capsule,delayed release 20 mg PO DAILY gerd 04/30/22 [History Confirmed 03/11/23] pregabalin 75 mg capsule 75 mg PO BID #10 caps 05/04/22 [Rx Confirmed 03/11/23] calcium acetate(phosphat bind) 667 mg capsule 667 mg PO TID 05/25/22 [History Confirmed 03/11/23] tramadol 50 mg tablet 50 mg PO Q6H PRN pain 3 days #5 tabs 05/30/22 [Rx Confirmed 03/11/23] insulin glargine 100 unit/mL (3 mL) subcutaneous pen (Lantus Solostar U-100 Insulin) 10 unit subcut QPM 06/14/22 [History Confirmed 03/11/23] hydrocodone-acetaminophen 5-325mg 5mg-325mg 1 tab PO Q8H PRN pain 2 days #5 tabs 11/21/22 [Rx Confirmed 03/11/23] diltiazem HCl 180 mg capsule,extended release 24 hr 240 mg PO DAILY 11/28/22 [History Confirmed 03/11/23] hydralazine 50 mg tablet 25 mg PO TID 11/28/22 [History Confirmed 03/11/23] flash glucose scanning reader ([employer] Yane 2 [place]) #1 ea 12/07/22 [Rx Confirmed 03/11/23] flash glucose sensor ([employer] Yane 2 Sensor kit) #2 ea 12/07/22 [Rx Confirmed 03/11/23] pantoprazole 40 mg tablet,delayed release mg PO 12/10/22 [History Confirmed 03/11/23] PFSH Medical History Accidental fall Anemia Arthritis Bilateral pleural effusion Cardiology follow-up encounter Chronic pain syndrome CKD (chronic kidney disease) stage 4, GFR 15-29 ml/min Closed intertrochanteric fracture of left hip Depression Diabetes Diabetes mellitus with hyperglycemia Dietary restriction Difficulty chewing Essential hypertension Excessive bleeding Gastric reflux High cholesterol History of echocardiogram History of edema History of orthostatic hypotension History of renal dialysis History of renal disease History of stress test HLD (hyperlipidemia) HTN (hypertension) Hx of orthostatic hypotension Hypoglycemia due to insulin Injury of head and neck Insulin dependent diabetes mellitus Long-term insulin use Low iron Malnutrition Migraine headache Migraine without aura Non-smoker Post-concussion syndrome Stage 5 chronic kidney disease due to type 2 diabetes mellitus Symptomatic anemia Syncope Transfusion of blood during current hospitalisation Uses wheelchair Vertigo Vomiting Walker as ambulation aid Wears glasses Surgical History History of cholecystectomy History of esophagogastroduodenoscopy (EGD) History of mandibular surgery Hx of colonoscopy S/P arteriovenous (AV) fistula creation S/P arteriovenous (AV) fistula repair S/P arteriovenous (AV) graft repair S/P dialysis catheter insertion Family History Mother HypertensionFather Cancer lymphoma, leukemia Emphysema of lung HypertensionGrandmother Diabetes CVA (cerebral vascular accident) Social History household members: significant other housing: [facility] Smoking Status: Never smoker alcohol intake: never substance use type: does not use HPI HPI HPI: 62-year-old female. I have most recently seen her on December 10, 2022. Dating back to November 21, 2022 I completely recreated her left forearm radiocephalic arteriovenous hemodialysis fistula from her previous one that was failing to mature. She is now on hemodialysis via this fistula. She is referred by Dr. Aubree Terry today for removal of her tunneled right chest dialysis catheters. Patient arrives in instructs us that they are still using her dialysis catheters. They are having troubles with her left forearm radiocephalic arteriovenous fistula. Her most recent surgery was September 05, 2022 where because of failure to mature left forearm radiocephalic AV fistula and problems with a left internal jugular tunneled catheter I performed a left extremity fistulogram with 4 x 80 mm Agatha cross balloon maturation angioplasty of the radial artery arterial anastomosis and fistula. I also placed right internal jugular 19 cm precurved palindrome catheters and removed the left internal jugular catheters. Her fistula has been utilized intermittently for a period of time but just 2 days ago was not able to be utilized. The patient runs significantly low blood pressure. Today her systolic is only 83/56. She states that on dialysis days she is instructed to take a medication to help support her blood pressure but I do not see that on her list. ROS General General: No weight change, appetite, fatigue, colon cancer, breast cancer or weakness HEENT HEENT: No difficulty swallowing, eye injury, eye surgery, swollen glands or hoarseness Endo Endocrine: No thyroid disease, diabetes mellitus, thyroid cancer, Hair loss, heat intolerance or cold intolerance Skin Skin: No rash or changing moles Breast Breast: No left breast lump, right breast lump, nipple discharge, breast pain, abnormal mammogram, abnormal US or breast enlargement Musc Musculoskeletal: No back problems, arthritis, rheumatoid arthritis, gout or joint pain Cardio Cardiovascular: No murmur, pacemaker, heart disease, atrial fibrillation, high blood pressure, heart attack, heart stent, palpitations, shortness of breat with exertion or chest pain Psych Psychiatric: No depression, anxiety or hearing voices Resp Respiratory: No shortness of breath, No sleep apnea, No cough, No COPD, No asthma, No emphysema and No wheezing Gastro Gastrointestinal: No abdominal pain, No nausea or vomiting, No diarrhea, No constipation, No blood in stool, No acid reflux, No hemorrhoids, No ulcers, No gallbladder problem and No black,tarry stools Jalil Hematologic: No blood thinners, No blood disorders, No bleeding, No anemia and No blood clots Neuro Neurologic: No system reviewed and no additional complaints, except as documented, No as per HPI, No abnormal gait, No abnormal hearing, No abnormal movements, No abnormal speech, No behavioral changes, No burning sensations, No confusion, No convulsions, No disequilibrium, No dizziness, No localized weakness, No frequent falls, No headache(s), No lack of coordination, No loss of vision, No memory loss, No numbness, No other visual disturbances, No radicular pain, No restless legs, No sensory deficit, No syncope, No tingling, No tremor(s), No weakness and No other Exam Const General: cooperative and comfortable Other: Patient appears to be elderly and frail. Neck Neck: normal visual inspection Resp Other: Poor respiratory excursion, clear in the apices Cardio Rate: regular rate Rhythm: regular rhythm GI Palpation: soft Neuro General: patient alert and patient awake Extrem Other: Left upper extremity has evidence of a proximal left forearm radiocephalic arteriovenous fistula. Have difficulties feeling a pulse. Did not feel a thrill. I cannot hear an audible bruit. I inspected it with ultrasound. The anastomosis appears to be patent the fistula appears to be patent however does demonstrate some compressibility suggesting lack of strong inflow which may be mechanical issue or related to her low blood pressure. Psych Appearance: grossly normal Assessment and Plan Assessment and Plan (1) Problem with dialysis access: Status: Acute Qualifiers: Encounter type: sequela Qualified Code(s): T82.898S - Other specified complication of vascular prosthetic devices, implants and grafts, sequela Plan: Clearly we cannot remove her right IJ tunneled dialysis catheters. We will schedule her for an urgent left upper extremity fistulogram with endovascular intervention. The patient is referred to both primary care and nephrology for medical maximization of her medications particularly in regards to her blood pressure and relative hypotension. Copy: Dr. Dennys Serrano and Dr. Aubree Krueger M.D., F.A.C.S I have examined the patient and the H&P has been reviewed. There are no clinical changes since date of exam. Cisco Krueger M.D., F.A.C.S.
[2023-03-13 10:20] LABS: Hematocrit 39.4 % (37-47); Hemoglobin 12.1 g/dL (12.0-15.0); Mean Corp Hgb Conc 30.7 g/dL (32-36); Mean Corpuscular Hgb 28.6 pg (27.0-32.0); Mean Corpuscular Volume 93.1 fL (81-99); Platelet Count 153 K/mm3 (150-450); RBC Distribution Width CV 14.5 % (11.6-14.6); RBC Distribution Width SD 49.2 fl (35.1-43.9); Red Blood Count 4.23 M/mm3 (4.2-5.4); White Blood Count 4.6 K/mm3 (4.4-11.0)
[2023-03-13 10:23] LABS: Anion Gap 7 (5-15); BUN 29 mg/dL (7-18); BUN/Creat Ratio 5.3 RATIO (10-20); Calcium,Total 8.4 mg/dL (8.5-10.1); Chloride 98 mmol/L (98-107); Creatinine, Serum 5.47 mg/dL (0.55-1.02); EST Glomerular Filtration Rate 8 mL/min (>60); Est Glom Filt Rate - Afr Amer 10 mL/min (>60); Estimated Creatinine Clearance 9.84 ml/min; Glucose 195 mg/dL (74-106); Potassium 4.5 mmol/L (3.5-5.1); Sodium Level 135 mmol/L (136-145)
--- NOTE | 2023-03-13 11:42 | OP.PCM_ITS ---
Report of Operation Date of Procedure: 03/13/23 Pre-Operative Diagnosis: Diminished flow left forearm radiocephalic arterioveno us hemodialysis fistula Post-Operative Diagnosis: Diminished flow left forearm radiocephalic arteriovenous hemodialysis fistula likely secondary to relative hypotension, moderate arterial inflow stenosis Surgery/Procedure Performed:: Left upper extremity fistulogram by 5 x 2 Powerflex anastomotic angioplasty Description of Surgical Findings:: Timeout informed consent was obtained. 62-year-old female was taken to the special procedures lab placed on the table the left extremity sterilely prepped and draped in the proximal forearm retrograde with flow 2% lidocaine was instilled using ultrasound guidance then using ultrasound guidance using micropuncture needle retrograde micropuncture wire micropuncture 6 Albanian short sheath dilator then was able to use an 035 Glidewire and a 4 Albanian glide cath gained access to the radial artery proximal to the anastomosis using Isovue contrast fistulogram was obtained demonstrating moderate stenosis at the arterial anastomosis but otherwise the main portion of the fistula appeared to be patent. At the antecubital area via the Jorde basilic vein outflow there mi ght be some spasm or mild stenosis then there was good upper arm outflow again mostly through the basilic system. I then tried to get access in the more distal forearm antegrade with flow but ended up in a cephalic vein sidebranch. At that point felt that placing additional sheath was not indicated. Both 6 Albanian sheaths were removed 2 sutures of 4-0 nylon was placed hemostasis was intact the fistula had a strong pulse and thrill. Images suggest a patent left forearm radiocephalic arteriovenous fistula with primarily basilic vein outflow. There is some moderate stenosis at the anastomosis that was treated with 5 x 2 months balloon angioplasty. I felt that there is likely some spasm of the venous outflow at the antecubital space. Otherwise good central venous outflow. I suspect dialysis is having issues with the fistula secondary to patient's relative hypotension Cisco Krueger M.D., F.A.C.S. Surgeon: Cisco Krueger Type of Anesthesia: Local
== END 2023-03-13 23:59 | disposition home or self-care (01) ==
PROVIDERS: PCP Family Medicine; Referring Provider Surgery; Visit Provider Surgery
DX: T82.858A Stenosis of other vascular prosthetic devices, implants and grafts, initial encounter (principal); Z99.2 Dependence on renal dialysis; E11.22 Type 2 diabetes mellitus with diabetic chronic kidney disease; E11.65 Type 2 diabetes mellitus with hyperglycemia; N18.5 Chronic kidney disease, stage 5; I12.0 Hypertensive chronic kidney disease with stage 5 chronic kidney disease or end stage renal disease; Z79.4 Long term (current) use of insulin; E78.00 Pure hypercholesterolemia, unspecified; Z79.82 Long term (current) use of aspirin; Z79.899 Other long term (current) drug therapy; Y71.8 Miscellaneous cardiovascular devices associated with adverse incidents, not elsewhere classified
CPT/HCPCS: 36415; 36902; 76937; 80048; 85027; Q9967; C1725; C1769

== ENCOUNTER 2023-03-14 09:34 | Emergency (ER) | payer MEDICARE, MEDICAID, SELFPAY ==
[2023-03-14 09:39] VITALS: BP 92/56; PULSE 74; PULSE 76; RESP 16; TEMP 36.8; O2SAT 95; O2SAT 96
--- NOTE | 2023-03-14 09:53 | EKG12_ITS ---
Test Reason : DYSRHYTHMIA Blood Pressure : / mmHG Vent. Rate : 075 BPM Atrial Rate : 075 BPM P-R Int : 192 ms QRS Dur : 098 ms QT Int : 400 ms P-R-T Axes : 075 027 048 degrees QTc Int : 446 ms Normal sinus rhythm Normal ECG Confirmed by DAVID AMEZCUA, TED ([id number]), editorial writer RAFI DOMINGO ([id number]) on 03/18/2023 1:58:48 P M Referred By: JARAD Confirmed By:JUSTUS HERNANDEZ MD
--- NOTE | 2023-03-14 09:53 | EX.ED.DYSGE1 ---
HPI History of Present Illness Chief Complaint: Weakness Detail of Chief Complaint: Weakness Informant: patient Narrative Narrative: Patient presents to the emergency department via EMS from home with complaint generalized weakness. Patient states that she was too weak today to go to dialysis. Patient states that she felt fine yesterday. She had a fistulogram and work done on her fistula in her left arm yesterday. Afterwards she just felt really tired. Her last dialysis was 2 days ago. Patient also states that her blood pressure has been running low at dialysis and they have had to give her midodrine. Patient denies recent illness. She denies chest pain or shortness of breath. Denies abdominal pain. She makes very little urine. [facility] Medical History Accidental fall Anemia Arthritis Bilateral pleural effusion Cardiology follow-up encounter Chronic pain syndrome CKD (chronic kidney disease) stage 4, GFR 15-29 ml/min Closed intertrochanteric fracture of left hip Depression Diabetes Diabetes mellitus with hyperglycemia Dietary restriction Difficulty chewing Essential hypertension Excessive bleeding Gastric reflux High cholesterol History of echocardiogram History of edema History of orthostatic hypotension History of renal dialysis History of renal disease History of stress test HLD (hyperlipidemia) HTN (hypertension) Hx of orthostatic hypotension Hypoglycemia due to insulin Injury of head and neck Insulin dependent diabetes mellitus Long-term insulin use Low iron Malnutrition Migraine headache Migraine without aura Non-smoker Post-concussion syndrome Stage 5 chronic kidney disease due to type 2 diabetes mellitus Symptomatic anemia Syncope Transfusion of blood during current hospitalisation Uses wheelchair Vertigo Vomiting Walker as ambulation aid Wears glasses Home Medications aspirin 81 mg chewable tablet 81 mg PO QHS HEART HEALTH 12/15/19 [History Last Taken 11/20/22] atorvastatin 40 mg tablet 40 mg PO QHS CHOLESTEROL 12/15/19 [History Last Taken 11/19/22] insulin lispro 100 unit/mL subcutaneous pen (Humalog KwikPen (U-100) Insulin) 8 unit subcut TIDCM diabetes 01/06/22 [History Last Taken 03/13/23] sertraline 50 mg tablet 50 mg PO QHS DEPRESSION 01/06/22 [History Last Taken 11/20/22] polyethylene glycol 3350 17 gram oral powder packet 17 g PO DAILY PRN Constipation 02/13/22 [History Last Taken 03/13/22] omeprazole 20 mg capsule,delayed release 20 mg PO DAILY gerd 04/30/22 [History Last Taken 11/20/22] pregabalin 75 mg capsule 75 mg PO BID #10 caps 05/04/22 [Rx Last Taken 11/20/22] calcium acetate(phosphat bind) 667 mg capsule 667 mg PO TID 05/25/22 [History Last Taken 11/19/22] tramadol 50 mg tablet 50 mg PO Q6H PRN pain 3 days #5 tabs 05/30/22 [Rx Last Taken Unknown] insulin glargine 100 unit/mL (3 mL) subcutaneous pen (Lantus Solostar U-100 Insulin) 10 unit subcut QPM 06/14/22 [History Last Taken 11/19/22] hydrocodone-acetaminophen 5-325mg 5mg-325mg 1 tab PO Q8H PRN pain 2 days #5 tabs 11/21/22 [Rx Last Taken Unknown] diltiazem HCl 180 mg capsule,extended release 24 hr 240 mg PO DAILY 11/28/22 [History Last Taken Unknown] hydralazine 50 mg tablet 25 mg PO TID 11/28/22 [History Last Taken Unknown] flash glucose scanning reader ([employer] Yane 2 [place]) #1 ea 12/07/22 [Rx Last Taken Unknown] flash glucose sensor (FreeStyle Yane 2 Sensor kit) #2 ea 12/07/22 [Rx Last Taken Unknown] pantoprazole 40 mg tablet,delayed release 40 mg PO Q12H 12/10/22 [History Last Taken Unknown] oseltamivir 75 mg capsule (Tamiflu) 75 mg PO BID 5 days #9 caps 03/14/23 [Rx Last Taken Unknown] Allergy/AdvReac Type Severity Reaction Status Date / Time metformin AdvReac Diarrhea Verified 03/11/23 09:32 Family History Mother Hypertension Father Cancer lymphoma, leukemia Emphysema of lung Hypertension Grandmother Diabetes CVA (cerebral vascular accident) Surgical History History of cholecystectomy History of esophagogastroduodenoscopy (EGD) History of mandibular surgery Hx of colonoscopy S/P arteriovenous (AV) fistula creation S/P arteriovenous (AV) fistula repair S/P arteriovenous (AV) graft repair S/P dialysis catheter insertion Social History household members: significant other housing: fdc Smoking Status: Never smoker alcohol intake: never substance use type: does not use ROS ROS ED Review of Systems ROS Unobtainable: other Constitutional Constitutional ED: Reports lethargy; Denies chills, fever(s), sweats or weight loss Eyes Eyes: Denies blurry vision, change in vision or diplopia ENT ENT ED: Denies rhinorrhea or sore throat Cardiovascular Cardiovascular: Denies chest pain, orthopnea or racing heartbeat Respiratory/Chest Respiratory/Chest: Denies cough, dyspnea, dyspnea on exertion, orthopnea or sputum Gastrointestinal Gastrointestinal: Denies abdominal pain, diarrhea, nausea or vomiting Genitourinary Genitourinary ED: Denies dysuria, hematuria or urinary frequency Musculoskeletal Musculoskeletal: Denies arthralgias, back pain, myalgias or neck pain Integumentary Denies abscess, Abrasions or rash Neurologic Neurologic: Reports weakness; Denies headache(s) Psychiatric Psychiatric: Denies anxiety, depression or suicidal thoughts Endocrine Endocrinology: Denies polydipsia, polyphagia or polyuria Hematologic/Lymphatic Hematologic/Lymphatic: Denies easy bleeding, easy bruising or lymphadenopathy Allergic/Immunologic Allergic/Immunologic ED: Denies mouth swelling, tongue swelling or urticaria EXAM Physical Exam Const Vital Signs: 03/14/23 09:39 03/14/23 09:39 03/14/23 09:44 Temperature 98.3 F Temperature Source Oral Pulse Rate 76 74 Respiratory Rate 16 16 Respiratory Pattern Normal Blood Pressure 92/56 L 92/56 L Blood Pressure Mean 68 68 Pulse Ox 95 96 Oxygen Delivery Method Room Air Room Air 03/14/23 11:20 Temperature 97.2 F L Temperature Source Pulse Rate 74 Respiratory Rate 16 Respiratory Pattern Blood Pressure 117/65 Blood Pressure Mean 82 Pulse Ox 98 Oxygen Delivery Method Positive well nourished and well developed General Appearance ED: well developed and NAD HEENT Reports TM's clear and moist mucous membranes normocephalic and atraumatic; Negative for trauma or tenderness Tympanic Membrane ED: Yes TM's clear Eyes PERRL and EOMs intact bilaterally General Eye ED: Negative for pale conjunctiva or scleral icterus Neck no lymphadenopathy, supple and no JVD General: Negative for tenderness Chest Wall inspection of chest normal and palpation of chest normal Chest: Negative for tenderness Resp normal respiratory effort and clear to auscultation bilaterally Effort and Inspection: Negative for respiratory distress or pain with movement Auscultation: Negative for rhonchi, wheezes or diminished lung sounds Cardio regular rate, regular rhythm, S1 normal heart sound, S2 normal heart sound and no murmurs Peripheral Pulses: pulses 2+ throughout GI normal to inspection, nondistended, normoactive bowel sounds, soft to palpation, non-tender, non-distended and no masses Back/Spine no CVA tenderness and no thoracic nor lumbar tenderness Extremity normal to inspection General Extremety ED: Negative for edema General Extremity: Negative for edema Neuro oriented x3, CN's II-XII intact bilaterally, no sensory deficits noted and gait normal Sensorium / Orientation: awake, alert, oriented to person, oriented to place and oriented to time Motor Exam: strength 5/5 throughout and strength abnormal Psych mental status grossly normal Skin no rashes or lesions noted and no wounds MDM MDM MDM Narrative Medical decision making narrative: Patient with generalized weakness. Did not go to dialysis today. Nursing checked fingerstick blood sugar and was 63. They are given her orange juice. Will obtain basic labs and EKG. Patient also noted to be slightly hypotensive with systolic in the low 90s and will receive a 500 cc fluid bolus. After 500 cc fluid bolus and repeat exam her blood pressure now 125 systolic. CBC with differential count of 4.0 with hemoglobin 11.4 and platelet count of 122. Chemistries unremarkable. BUN was 43 and creatinine 7.49. Potassium normal at 4.2. COVID and flu testing obtained showed that she was positive for influenza A. This point I suspect her weakness is likely related to influenza A. I offered to admit her if she felt she was too weak to go home but she does not want to be admitted. We will see if they can see her for dialysis again today. Will start her on Tamiflu. Lab Data Attestation: I reviewed the patient's lab results. Labs: Laboratory Results - last 24 hr 03/14/23 09:56 WBC 4.0 L RBC 4.08 L Hgb 11.4 L Hct 37.4 MCV 91.7 MCH 27.9 MCHC 30.5 L RDW Std Deviation 49.2 H RDW Coeff of Chris 14.8 H Plt Count 122 L MPV 11.8 Immature Gran % (Auto) 0.200 Neut % (Auto) 59.8 Lymph % (Auto) 27.1 Garvin % (Auto) 11.4 H Eos % (Auto) 1.0 Baso % (Auto) 0.5 Absolute Neuts (auto) 2.4 Absolute Lymphs (auto) 1.09 Nucleated RBC % 0 Sodium 134 L Potassium 4.2 Chloride 98 Carbon Dioxide 28.0 Anion Gap 8 BUN 43 H Creatinine 7.49 H* Estim Creat Clear Calc 7.19 Est GFR (MDRD) Af Amer 7 L Est GFR (MDRD) Non-Af 6 L BUN/Creatinine Ratio 5.7 L Glucose 104 Calcium 8.9 Troponin I High Sens 24 EKG Initial EKG: Attestation: I personally reviewed and interpreted this EKG as follows: Comments: Sinus rhythm with rate 75 bpm with no acute ST segment changes Discharge Plan Triage Chief Complaint: Weakness ED Provider: Benjamin Patricia Dx/Rx/DC Orders Clinical Impression: Influenza A, Weakness, Chronic renal failure Prescriptions: New oseltamivir [Tamiflu] 75 mg capsule 75 mg PO BID 5 Days Qty: 9 0RF No Action (DME) FreeStyle Yane 2 [place] Misc See Rx Instructions .Route Qty: 1 0RF Rx Instructions: As directed (DME) FreeStyle Yane 2 Sensor Kit See Rx Instructions .Route Qty: 2 6RF Rx Instructions: As directed hydralazine 50 mg tablet 25 mg PO TID diltiazem HCl 180 mg capsule,extended release 24hr 240 mg PO DAILY pantoprazole 40 mg tablet,delayed release (DR/EC) 40 mg PO Q12H atorvastatin 40 MG tablet 40 mg PO QHS aspirin 81 MG tablet,chewable 81 mg PO QHS insulin lispro [Humalog KwikPen Insulin] 100 unit/mL insulin pen 8 unit subcut TIDCM Rx Instructions: with meals sertraline 50 mg tablet 50 mg PO QHS polyethylene glycol 3350 17 gram powder in packet 17 g PO DAILY PRN (Reason: Constipation) omeprazole 20 mg Capsule,Delayed Release(Dr/Ec) 20 mg PO DAILY pregabalin 75 mg Capsule 75 mg PO BID Qty: 10 0RF calcium acetate(phosphat bind) 667 mg Capsule 667 mg PO TID tramadol 50 mg tablet 50 mg PO Q6H PRN (Reason: pain) 3 Days Qty: 5 0RF insulin glargine [Lantus Solostar U-100 Insulin] 100 unit/mL (3 mL) Insulin Pen 10 unit SUBCUT QPM hydrocodone-acetaminophen 5-325 mg tablet 1 tab PO Q8H PRN (Reason: pain) 2 Days Qty: 5 0RF Primary Care Provider: Dennys Serrano Referrals: Dennys Serrano MD [Primary Care Provider] - 3-5 Days Disposition Disposition: Home, Self Care Discharge Date/Time: 03/14/23 12:03
[2023-03-14 10:07] LABS: Absolute Lymphocyte Count 1.09 X10^3/uL (0.83-4.51); Absolute Neutrophil Count 2.4 X10^3/uL (2.0-7.7); Basophil# 0.02 X10^3/uL; Basophil% 0.5 % (0-1); Eosinophil# 0.04 X10^3/uL; Hematocrit 37.4 % (37-47); Hemoglobin 11.4 g/dL (12.0-15.0); Lymphocyte # 1.09 X10^3/ul (0.83-4.51); Lymphocyte % 27.1 % (19-41); Mean Corp Hgb Conc 30.5 g/dL (32-36); Mean Corpuscular Hgb 27.9 pg (27.0-32.0); Mean Corpuscular Volume 91.7 fL (81-99); Mean Platelet Vol. 11.8 fl (6.2-12.0); Monocyte# 0.46 X10^3/uL; Monocyte% 11.4 % (0-10); NRBC Flagged by Analyzer 0 % (0-5); Neutrophil % 59.8 % (47-70); Platelet Count 122 K/mm3 (150-450); RBC Distribution Width CV 14.8 % (11.6-14.6); RBC Distribution Width SD 49.2 fl (35.1-43.9); Red Blood Count 4.08 M/mm3 (4.2-5.4)
--- NOTE | 2023-03-14 10:09 | ED.RN ---
PT WITH GLUCOMETER BEEPING, MONITOR READING LOW. BG RESULT WAS 63. PT GIVEN SUGAR AND APPLE JUICE TO DRINK. DR. HERNANDO MORE.
[2023-03-14] MEDS: 0.9% Normal Saline (500mL Bag) 500 ML 1000 ML IV (10:20)
[2023-03-14 10:21] VITALS: BMI 24.1
[2023-03-14 10:28] LABS: Anion Gap 8 (5-15); BUN 43 mg/dL (7-18); BUN/Creat Ratio 5.7 RATIO (10-20); Calcium,Total 8.9 mg/dL (8.5-10.1); Chloride 98 mmol/L (98-107); Creatinine, Serum 7.49 mg/dL (0.55-1.02); EST Glomerular Filtration Rate 6 mL/min (>60); Est Glom Filt Rate - Afr Amer 7 mL/min (>60); Estimated Creatinine Clearance 7.19 ml/min; Glucose 104 mg/dL (74-106); Potassium 4.2 mmol/L (3.5-5.1); Sodium Level 134 mmol/L (136-145); Troponin-I HS 24 pg/mL (3.0-54.0)
[2023-03-14] MEDS: Oseltamivir Phosphate 75 MG Capsule PO (11:19)
[2023-03-14 11:20] VITALS: BP 117/65; PULSE 74; RESP 16; TEMP 36.2; O2SAT 98
== END 2023-03-14 12:03 | disposition home or self-care (01) ==
PROVIDERS: Emergency Provider Emergency Medicine; PCP Family Medicine; Visit Provider Emergency Medicine
DX: J10.1 Influenza due to other identified influenza virus with other respiratory manifestations (principal); Z99.2 Dependence on renal dialysis; E11.22 Type 2 diabetes mellitus with diabetic chronic kidney disease; N18.4 Chronic kidney disease, stage 4 (severe); Z79.4 Long term (current) use of insulin; R53.1 Weakness; E78.00 Pure hypercholesterolemia, unspecified; I12.9 Hypertensive chronic kidney disease with stage 1 through stage 4 chronic kidney disease, or unspecified chronic kidney disease; Z79.899 Other long term (current) drug therapy; Z79.82 Long term (current) use of aspirin; F32.A Depression, unspecified; K21.9 Gastro-esophageal reflux disease without esophagitis; Z90.49 Acquired absence of other specified parts of digestive tract
CPT/HCPCS: 80048; 84484; 85025; 87428; 93005; 96360; 99284; J7030

== ENCOUNTER 2023-03-17 17:48 | Emergency (ER) | payer MEDICARE, MEDICAID, SELFPAY ==
[2023-03-17 17:48] VITALS: BP 132/71; PULSE 106; RESP 18; TEMP 36.8; O2SAT 93
[2023-03-17] MEDS: Ondansetron ODT 4 MG Tablet PO (20:08)
[2023-03-17 20:09] VITALS: BP 139/93; PULSE 105; RESP 20; O2SAT 92
[2023-03-17 20:10] VITALS: BMI 24.0
--- NOTE | 2023-03-17 20:33 | EX.ED.DYSGE1 ---
HPI <MARIE Bryant - Last Filed: 03/17/23 20:53> History of Present Illness Chief Complaint: Nausea/Vomiting Narrative Narrative: Patient presenting due to nausea, vomiting, and diarrhea that she has had intermittently since . She reports that she is having loose stools a few times a day with few episodes of vomiting each day. She was seen here on and did test positive for influenza A. She reports that earlier today she felt lightheaded at home as if she could pass out, but reports that she no longer feels lightheaded. Patient does have a history of CKD and receives dialysis 3 days a week, she last had dialysis yesterday. She denies any fever, chills, chest pain, shortness of breath, and abdominal pain. PFSH <MARIE Bryant - Last Filed: 03/17/23 20:53> [facility] Medical History Accidental fall Anemia Arthritis Bilateral pleural effusion Cardiology follow-up encounter Chronic pain syndrome CKD (chronic kidney disease) stage 4, GFR 15-29 ml/min Closed intertrochanteric fracture of left hip Depression Diabetes Diabetes mellitus with hyperglycemia Dietary restriction Difficulty chewing Essential hypertension Excessive bleeding Gastric reflux High cholesterol History of echocardiogram History of edema History of orthostatic hypotension History of renal dialysis History of renal disease History of stress test HLD (hyperlipidemia) HTN (hypertension) Hx of orthostatic hypotension Hypoglycemia due to insulin Injury of head and neck Insulin dependent diabetes mellitus Long-term insulin use Low iron Malnutrition Migraine headache Migraine without aura Non-smoker Post-concussion syndrome Stage 5 chronic kidney disease due to type 2 diabetes mellitus Symptomatic anemia Syncope Transfusion of blood during current hospitalisation Uses wheelchair Vertigo Vomiting Walker as ambulation aid Wears glasses Home Medications aspirin 81 mg chewable tablet 81 mg PO QHS HEART HEALTH 12/15/19 [History Last Taken 11/20/22] atorvastatin 40 mg tablet 40 mg PO QHS CHOLESTEROL 12/15/19 [History Last Taken 11/19/22] insulin lispro 100 unit/mL subcutaneous pen (Humalog KwikPen (U-100) Insulin) 8 unit subcut TIDCM diabetes 01/06/22 [History Last Taken 03/13/23] sertraline 50 mg tablet 50 mg PO QHS DEPRESSION 01/06/22 [History Last Taken 11/20/22] polyethylene glycol 3350 17 gram oral powder packet 17 g PO DAILY PRN Constipation 02/13/22 [History Last Taken 03/13/22] omeprazole 20 mg capsule,delayed release 20 mg PO DAILY gerd 04/30/22 [History Last Taken 11/20/22] pregabalin 75 mg capsule 75 mg PO BID #10 caps 05/04/22 [Rx Last Taken 11/20/22] calcium acetate(phosphat bind) 667 mg capsule 667 mg PO TID 05/25/22 [History Last Taken 11/19/22] tramadol 50 mg tablet 50 mg PO Q6H PRN pain 3 days #5 tabs 05/30/22 [Rx Last Taken Unknown] insulin glargine 100 unit/mL (3 mL) subcutaneous pen (Lantus Solostar U-100 Insulin) 10 unit subcut QPM 06/14/22 [History Last Taken 11/19/22] hydrocodone-acetaminophen 5-325mg 5mg-325mg 1 tab PO Q8H PRN pain 2 days #5 tabs 11/21/22 [Rx Last Taken Unknown] diltiazem HCl 180 mg capsule,extended release 24 hr 240 mg PO DAILY 11/28/22 [History Last Taken Unknown] hydralazine 50 mg tablet 25 mg PO TID 11/28/22 [History Last Taken Unknown] flash glucose scanning reader ([employer] Yane 2 [place]) #1 ea 12/07/22 [Rx Last Taken Unknown] flash glucose sensor ([employer]Style Yane 2 Sensor kit) #2 ea 12/07/22 [Rx Last Taken Unknown] pantoprazole 40 mg tablet,delayed release 40 mg PO Q12H 12/10/22 [History Last Taken Unknown] oseltamivir 75 mg capsule (Tamiflu) 75 mg PO BID 5 days #9 caps 03/14/23 [Rx Last Taken Unknown] ondansetron 4 mg disintegrating tablet 4 mg PO Q8H PRN PRN Nausea #10 tabs 03/17/23 [Rx Last Taken Unknown] Allergy/AdvReac Type Severity Reaction Status Date / Time metformin AdvReac Diarrhea Verified 03/17/23 17:48 Family History Mother Hypertension Father Cancer lymphoma, leukemia Emphysema of lung Hypertension Grandmother Diabetes CVA (cerebral vascular accident) Surgical History History of cholecystectomy History of esophagogastroduodenoscopy (EGD) History of mandibular surgery Hx of colonoscopy S/P arteriovenous (AV) fistula creation S/P arteriovenous (AV) fistula repair S/P arteriovenous (AV) graft repair S/P dialysis catheter insertion Social History household members: significant other housing: halfway Smoking Status: Never smoker alcohol intake: never substance use type: does not use ROS <MARIE Bryant - Last Filed: 03/17/23 20:53> ROS ED Constitutional Constitutional ED: Denies chills or fever(s) Cardiovascular Cardiovascular: Denies chest pain or palpitations Respiratory/Chest Respiratory/Chest: Denies cough or dyspnea Gastrointestinal Gastrointestinal: Reports diarrhea, nausea and vomiting; Denies abdominal pain Musculoskeletal Musculoskeletal: Denies arthralgias or myalgias Integumentary Denies rash Neurologic Neurologic: Denies weakness EXAM <MARIE Bryant - Last Filed: 03/17/23 20:53> Physical Exam Const Vital Signs: 03/17/23 17:48 03/17/23 20:09 Temperature 98.3 F Temperature Source Temporal Pulse Rate 106 H 105 H Respiratory Rate 18 20 H Blood Pressure 132/71 H 139/93 H Blood Pressure Mean 91 108 Pulse Ox 93 92 Oxygen Delivery Method Room Air Room Air Positive well nourished, well developed and no apparent distress General Appearance ED: well developed HEENT Reports normocephalic and head/scalp atraumatic Mouth ED: Yes moist mucous membranes normal Eyes PERRL and EOMs intact bilaterally Neck full ROM and supple Chest Wall inspection of chest normal Resp normal respiratory effort and clear to auscultation bilaterally Cardio regular rate and regular rhythm GI soft to palpation, non-tender, non-distended and no masses Back/Spine normal ROM and normal to inspection Extremity normal to inspection and full ROM Neuro oriented x3, CN's II-XII intact bilaterally, moves all extremities, no focal motor deficits and no sensory deficits noted Sensorium / Orientation: awake and alert Psych mental status grossly normal and thought process normal Skin no rashes or lesions noted and no wounds <Dr. Ricardo Mead, - Last Filed: 03/17/23 21:25> Physical Exam Const Vital Signs: 03/17/23 17:48 03/17/23 20:09 Temperature 98.3 F Temperature Source Temporal Pulse Rate 106 H 105 H Respiratory Rate 18 20 H Blood Pressure 132/71 H 139/93 H Blood Pressure Mean 91 108 Pulse Ox 93 92 Oxygen Delivery Method Room Air Room Air [facility] <MARIE Bryant - Last Filed: 03/17/23 20:53> [facility] Narrative Medical decision making narrative: Patient presenting due to flulike symptoms. She has had nausea, few episodes of vomiting/diarrhea each day, overall feels fatigued. She does have influenza A after testing positive on . She is outside of the window for Tamiflu. Vitals overall are unremarkable aside from slight tachycardia at 106 bpm, she is afebrile, oxygen saturation 93% on room air. She is not feeling short of breath. Abdomen is soft and nontender, she is not experiencing any abdominal pain. She will be given Zofran for her nausea and a p.o. challenge. Patient was able to tolerate p.o. fluids, on repeat exam she reports that she feels better. Patient is requesting to go home, I will give her a prescription for Zofran. She will be discharged home in stable condition and is comfortable with plan. <Dr. Ricardo Mead, - Last Filed: 03/17/23 21:25> [facility] Narrative Medical decision making narrative: Patient presenting due to flulike symptoms. She has had nausea, few episodes of vomiting/diarrhea each day, overall feels fatigued. She does have influenza A after testing positive on . She is outside of the window for Tamiflu. Vitals overall are unremarkable aside from slight tachycardia at 106 bpm, she is afebrile, without hypoxia. She is not feeling short of breath. Abdomen is soft and nontender, she is not experiencing any abdominal pain. She will be given Zofran for her nausea and a p.o. challenge. Patient was able to tolerate p.o. fluids, on repeat exam she reports that she feels better. Patient is requesting to go home, I will give her a prescription for Zofran. She will be discharged home in stable condition and is comfortable with plan. This patient was seen with a PA/EXPLORATION DRILLER Individually assessed they patient including history and physical. I have reviewed everything on the chart that is available and agree with the documentation provided by the PA/EXPLORATION DRILLER including discussion about the assessment, treatment plan, discussion, and return precautions. Patient diagnosed with flu and having some nausea vomiting diarrhea today. She was given Zofran and ultimately felt better. She did tolerate p.o. fluids. At this point she is requesting to go home. She is a ride here. I feel this is reasonable since she feels better. Patient given return precautions. Impression: 1. Influenza A 2. Nausea/vomiting 3. Diarrhea Discharge Plan Triage Chief Complaint: Nausea/Vomiting ED Midlevel Provider: Amena Pang ED Provider: Ricardo Mead Dx/Rx/DC Orders Clinical Impression: Influenza A, CKD (chronic kidney disease), Nausea & vomiting, Diarrhea Instructions: ED Influenza (Adult) Prescriptions: New ondansetron 4 mg tablet,disintegrating 4 mg PO Q8H PRN PRN (Reason: Nausea) Qty: 10 0RF No Action (DME) FreeStyle Yane 2 [place] Misc See Rx Instructions .Route Qty: 1 0RF Rx Instructions: As directed (DME) FreeStyle Yane 2 Sensor Kit See Rx Instructions .Route Qty: 2 6RF Rx Instructions: As directed hydralazine 50 mg tablet 25 mg PO TID diltiazem HCl 180 mg capsule,extended release 24hr 240 mg PO DAILY pantoprazole 40 mg tablet,delayed release (DR/EC) 40 mg PO Q12H atorvastatin 40 MG tablet 40 mg PO QHS aspirin 81 MG tablet,chewable 81 mg PO QHS insulin lispro [Humalog KwikPen Insulin] 100 unit/mL insulin pen 8 unit subcut TIDCM Rx Instructions: with meals sertraline 50 mg tablet 50 mg PO QHS polyethylene glycol 3350 17 gram powder in packet 17 g PO DAILY PRN (Reason: Constipation) omeprazole 20 mg Capsule,Delayed Release(Dr/Ec) 20 mg PO DAILY pregabalin 75 mg Capsule 75 mg PO BID Qty: 10 0RF calcium acetate(phosphat bind) 667 mg Capsule 667 mg PO TID tramadol 50 mg tablet 50 mg PO Q6H PRN (Reason: pain) 3 Days Qty: 5 0RF insulin glargine [Lantus Solostar U-100 Insulin] 100 unit/mL (3 mL) Insulin Pen 10 unit SUBCUT QPM hydrocodone-acetaminophen 5-325 mg tablet 1 tab PO Q8H PRN (Reason: pain) 2 Days Qty: 5 0RF oseltamivir [Tamiflu] 75 mg capsule 75 mg PO BID 5 Days Qty: 9 0RF Primary Care Provider: Dennys Serrano Referrals: Dennys Serrano MD [Primary Care Provider] - 5-7 Days Activity Restrictions/Additional Instructions: Stay well-hydrated, return for any worsening of your symptoms, follow-up with your PCP. Disposition Disposition: Home, Self Care
== END 2023-03-17 21:24 | disposition home or self-care (01) ==
PROVIDERS: Emergency Provider Student in an Organized Health Care Education/Training Program; PCP Family Medicine; Visit Provider Student in an Organized Health Care Education/Training Program
DX: J09.X2 Influenza due to identified novel influenza A virus with other respiratory manifestations (principal); Z99.2 Dependence on renal dialysis; E11.22 Type 2 diabetes mellitus with diabetic chronic kidney disease; N18.4 Chronic kidney disease, stage 4 (severe); Z79.4 Long term (current) use of insulin; R19.7 Diarrhea, unspecified; I12.9 Hypertensive chronic kidney disease with stage 1 through stage 4 chronic kidney disease, or unspecified chronic kidney disease; R11.2 Nausea with vomiting, unspecified; E78.00 Pure hypercholesterolemia, unspecified; Z79.82 Long term (current) use of aspirin; Z79.899 Other long term (current) drug therapy; K21.9 Gastro-esophageal reflux disease without esophagitis; F32.A Depression, unspecified; Z90.49 Acquired absence of other specified parts of digestive tract
CPT/HCPCS: 99282

== ENCOUNTER 2023-03-21 09:40 | Emergency (ER) | payer MEDICARE, MEDICAID, SELFPAY ==
[2023-03-21 09:41] VITALS: BP 135/66; PULSE 90; RESP 14; TEMP 36.1; O2SAT 98; BMI 24.0
--- NOTE | 2023-03-21 10:15 | EKG12_ITS ---
Test Reason : DYSRHYTHMIA Blood Pressure : / mmHG Vent. Rate : 091 BPM Atrial Rate : 000 BPM P-R Int : 000 ms QRS Dur : 088 ms QT Int : 364 ms P-R-T Axes : 000 047 043 degrees QTc Int : 447 ms Normal sinus rhythm Abnormal ECG Confirmed by ALYSSIA AMEZCUA, KARLA ([id number]), makeup editor RAFI DOMINGO ([id number]) on 03/22/2023 1:34:04 PM Referred By: PUMA Confirmed By:KARLA CADE MD
--- NOTE | 2023-03-21 10:16 | EX.ED.DYSGE1 ---
HPI History of Present Illness Chief Complaint: Syncope Detail of Chief Complaint: Near-syncope today prior to going to dialysis. Informant: patient Onset/Context/Timing Onset: Today Context: Sudden Onset Timing: Intermittent Current Severity: Gone Maximum Severity: Mild Narrative Narrative: 62-year-old female history of diabetes and end-stage renal disease. She is dialyzed Saturday. Was getting regular dialysis today where she felt lightheaded. Did not lose consciousness. No chest pain. No headache. No abdominal pain. Her last dialysis was on Saturday. Last week she was diagnosed with influenza A. She has had no recent hospitalization. She states she is feeling better from that. Currently has no complaints. She denies any vomiting or diarrhea. She makes very little urine. Prior similar symptoms: Yes Recent Illness/Hospitalization: No PFSH PFSH Medical History Accidental fall Anemia Arthritis Bilateral pleural effusion Cardiology follow-up encounter Chronic pain syndrome CKD (chronic kidney disease) stage 4, GFR 15-29 ml/min Closed intertrochanteric fracture of left hip Depression Diabetes Diabetes mellitus with hyperglycemia Dietary restriction Difficulty chewing Essential hypertension Excessive bleeding Gastric reflux High cholesterol History of echocardiogram History of edema History of orthostatic hypotension History of renal dialysis History of renal disease History of stress test HLD (hyperlipidemia) HTN (hypertension) Hx of orthostatic hypotension Hypoglycemia due to insulin Injury of head and neck Insulin dependent diabetes mellitus Long-term insulin use Low iron Malnutrition Migraine headache Migraine without aura Non-smoker Post-concussion syndrome Stage 5 chronic kidney disease due to type 2 diabetes mellitus Symptomatic anemia Syncope Transfusion of blood during current hospitalisation Uses wheelchair Vertigo Vomiting Walker as ambulation aid Wears glasses Home Medications aspirin 81 mg chewable tablet 81 mg PO QHS HEART HEALTH 12/15/19 [History Last Taken 11/20/22] atorvastatin 40 mg tablet 40 mg PO QHS CHOLESTEROL 12/15/19 [History Last Taken 11/19/22] insulin lispro 100 unit/mL subcutaneous pen (Humalog KwikPen (U-100) Insulin) 8 unit subcut TIDCM diabetes 01/06/22 [History Last Taken 03/13/23] sertraline 50 mg tablet 50 mg PO QHS DEPRESSION 01/06/22 [History Last Taken 11/20/22] polyethylene glycol 3350 17 gram oral powder packet 17 g PO DAILY PRN Constipation 02/13/22 [History Last Taken 03/13/22] omeprazole 20 mg capsule,delayed release 20 mg PO DAILY gerd 04/30/22 [History Last Taken 11/20/22] pregabalin 75 mg capsule 75 mg PO BID #10 caps 05/04/22 [Rx Last Taken 11/20/22] calcium acetate(phosphat bind) 667 mg capsule 667 mg PO TID 05/25/22 [History Last Taken 11/19/22] tramadol 50 mg tablet 50 mg PO Q6H PRN pain 3 days #5 tabs 05/30/22 [Rx Last Taken Unknown] insulin glargine 100 unit/mL (3 mL) subcutaneous pen (Lantus Solostar U-100 Insulin) 10 unit subcut QPM 06/14/22 [History Last Taken 11/19/22] hydrocodone-acetaminophen 5-325mg 5mg-325mg 1 tab PO Q8H PRN pain 2 days #5 tabs 11/21/22 [Rx Last Taken Unknown] diltiazem HCl 180 mg capsule,extended release 24 hr 240 mg PO DAILY 11/28/22 [History Last Taken Unknown] hydralazine 50 mg tablet 25 mg PO TID 11/28/22 [History Last Taken Unknown] flash glucose scanning reader ([employer] Yane 2 [place]) #1 ea 12/07/22 [Rx Last Taken Unknown] flash glucose sensor ([employer] Yane 2 Sensor kit) #2 ea 12/07/22 [Rx Last Taken Unknown] pantoprazole 40 mg tablet,delayed release 40 mg PO Q12H 12/10/22 [History Last Taken Unknown] oseltamivir 75 mg capsule (Tamiflu) 75 mg PO BID 5 days #9 caps 03/14/23 [Rx Last Taken Unknown] ondansetron 4 mg disintegrating tablet 4 mg PO Q8H PRN PRN Nausea #10 tabs 03/17/23 [Rx Last Taken Unknown] Allergy/AdvReac Type Severity Reaction Status Date / Time metformin AdvReac Diarrhea Verified 03/17/23 17:48 Family History Mother Hypertension Father Cancer lymphoma, leukemia Emphysema of lung Hypertension Grandmother Diabetes CVA (cerebral vascular accident) Surgical History History of cholecystectomy History of esophagogastroduodenoscopy (EGD) History of mandibular surgery Hx of colonoscopy S/P arteriovenous (AV) fistula creation S/P arteriovenous (AV) fistula repair S/P arteriovenous (AV) graft repair S/P dialysis catheter insertion Social History household members: significant other housing: penitentiary Smoking Status: Never smoker alcohol intake: never substance use type: does not use ROS ROS ED ROS Narrative Denies nausea, vomiting, diarrhea or fever. No melena. Denies headache, chest pain or abdominal pain. Review of Systems ROS Unobtainable: Denies due to encephalopathy Constitutional Constitutional ED: Denies chills or fever(s) Eyes Eyes: Denies blurry vision ENT ENT ED: Denies ear pain Cardiovascular Cardiovascular: Denies chest pain or palpitations Respiratory/Chest Respiratory/Chest: Denies cough or dyspnea Gastrointestinal Gastrointestinal: Denies abdominal pain, diarrhea, nausea or vomiting Genitourinary Genitourinary ED: Denies dysuria or hematuria Musculoskeletal Musculoskeletal: Denies arthralgias Integumentary Denies abscess Neurologic Neurologic: Denies headache(s) Psychiatric Psychiatric: Denies anxiety Endocrine Endocrinology: Denies cold intolerance Hematologic/Lymphatic Hematologic/Lymphatic: Reports none Allergic/Immunologic Allergic/Immunologic ED: Denies mouth swelling, tongue swelling or urticaria EXAM Physical Exam Narrative Exam Narrative: 62-year-old female vital signs are stable afebrile. Pulse ox 98% on room air no hypoxia. HEENT exam unremarkable atraumatic. Pupils round reactive light. Moist mucous membranes. Neck nontender. Lungs clear to auscultation bilaterally. Heart regular rhythm rate about 90 no murmur. Chest wall and ribs nontender. Abdomen soft nontender. Pelvic girdle intact. Moving all 4 extremities. Dialysis fistula in her left arm with a good thrill. She has a right chest wall Vas-Cath in place. Neurologically she is awake and alert with no focal motor deficits. Back is nontender. Patient is answering questions and following commands. Const Vital Signs: 03/21/23 09:41 03/21/23 09:46 03/21/23 11:16 Temperature 96.9 F L Temperature Source Temporal Pulse Rate 90 91 Respiratory Rate 14 17 Respiratory Effort Normal Non-Labored Respiratory Pattern Normal Blood Pressure 135/66 H 151/72 H Blood Pressure Mean 89 98 Pulse Ox 98 98 Oxygen Delivery Method Room Air Room Air 03/21/23 11:57 Temperature Temperature Source Pulse Rate 86 Respiratory Rate 18 Respiratory Effort Respiratory Pattern Blood Pressure 149/72 H Blood Pressure Mean 97 Pulse Ox 95 Oxygen Delivery Method Room Air Positive well nourished and well developed; Negative for obese, cachectic, contractures or unkempt General Appearance ED: well developed and NAD; Negative for unkempt, cachectic, contractures, cyanotic, diaphoretic or pallor Nutritional Appearance: Negative for cachectic or obese HEENT Reports moist mucous membranes; Denies dry mucous membranes Negative for trauma or tenderness Mouth ED: No dry mucous membranes Mouth: No dry mucous membranes Eyes PERRL and EOMs intact bilaterally General Eye ED: Negative for pale conjunctiva or scleral icterus Neck no lymphadenopathy, supple and no JVD General: Negative for tenderness Lymph Lymphatic: Negative for other Chest Wall inspection of chest normal and palpation of chest normal Chest: Negative for other Resp normal respiratory effort and clear to auscultation bilaterally Effort and Inspection: Negative for retractions or pain with movement Auscultation: Negative for rales, rhonchi or wheezes Cardio regular rate, regular rhythm, S1 normal heart sound, S2 normal heart sound and no murmurs Palpation: Negative for palpable S3 or palpable S4 Rate: Negative for bradycardia or tachycardic Rhythm: Negative for abnormal rhythm GI normal to inspection, nondistended, normoactive bowel sounds, non-tender, non-distended and no masses Inspection: Negative for abdominal distention Auscultation: normoactive bowel sounds Palpation: soft; Negative for tender or guarding Back/Spine no CVA tenderness General Back: Negative for CVA tenderness Cervical Spine: Negative for cervical spine tenderness Thoracic Spine / Upper Back: Negative for thoracic spinal tenderness Lumbar Spine / Lower Back: Negative for lumbar spinal tenderness Extremity normal to inspection General Extremety ED: Negative for edema or tenderness General Extremity: Negative for edema Neuro oriented x3 and CN's II-XII intact bilaterally Sensorium / Orientation: alert; Negative for orientation impaired, lethargic or stuporous Motor Exam: strength 5/5 throughout Psych mental status grossly normal Appearance: Negative for unkempt Attitude: No agitated Mood & Affect: Negative for depressed, anxious or tearful Skin no rashes or lesions noted, no wounds and skin turgor normal General Skin Exam: elasticity normal; Negative for jaundice or pallor Lesions: No lesion noted Rashes: No rashes noted Trauma: Negative for abrasion Wounds: Negative for wounds noted MDM MDM MDM Narrative Medical decision making narrative: 62-year-old diabetic on dialysis had a near syncopal episode today prior to dialysis. Currently she states she feels fine. She had influenza A last week. Screening labs and EKG will be obtained. Her exam is benign. Repeat exam patient doing well at 12:45 PM. She will be discharged in we will contact dialysis to see if they can do a run on her still today. History & Record Review Discussion w/independent historian: Patient Additional record(s) reviewed:: Prior inpatient record, Prior outpatient record, Prior ED visit and Prior labs Lab Data Attestation: I reviewed the patient's lab results. Lab results narrative: CBC shows a white count of 5. H&H 11.8 and 38. Electrolytes showed a gap of 10. BUN 35 creatinine 7.1 consistent with end-stage renal disease. Glucose 227. Labs are consistent with her baseline. Labs: Laboratory Results - last 24 hr 03/21/23 10:40 WBC 5.2 RBC 4.22 Hgb 11.8 L Hct 38.1 MCV 90.3 MCH 28.0 MCHC 31.0 L RDW Std Deviation 47.6 H RDW Coeff of Chris 14.5 Plt Count 142 L MPV 10.5 Immature Gran % (Auto) 0.200 Neut % (Auto) 65.2 Lymph % (Auto) 23.7 [place] % (Auto) 7.1 Eos % (Auto) 3.2 Baso % (Auto) 0.6 Absolute Neuts (auto) 3.4 Absolute Lymphs (auto) 1.24 Nucleated RBC % 0 Sodium 136 Potassium 4.1 Chloride 95 L Carbon Dioxide 31.0 Anion Gap 10 BUN 35 H Creatinine 7.13 H Estim Creat Clear Calc 7.55 Est GFR (MDRD) Af Amer 8 L Est GFR (MDRD) Non-Af 6 L BUN/Creatinine Ratio 4.9 L Glucose 227 H Calcium 9.3 Rhythm Strip Rhythm Strip: Sinus Rhythm Rate: 91 Ectopy: None EKG Initial EKG: Attestation: I personally reviewed and interpreted this EKG as follows: Interpretation: Sinus Rhythm and No Acute Injury Pattern Comments: Rhythm rate of 91 no acute signs of TX or ischemia. Discharge Plan Triage Chief Complaint: Syncope ED Provider: Mitesh Magana Dx/Rx/DC Orders Clinical Impression: History of end stage renal disease, Near syncope, History of diabetes mellitus Instructions: ED Near-Fainting, Uncertain Cause Prescriptions: No Action (DME) [employer] Yane 2 [place] Misc See Rx Instructions .Route Qty: 1 0RF Rx Instructions: As directed (DME) [employer] Yane 2 Sensor Kit See Rx Instructions .Route Qty: 2 6RF Rx Instructions: As directed hydralazine 50 mg tablet 25 mg PO TID diltiazem HCl 180 mg capsule,extended release 24hr 240 mg PO DAILY pantoprazole 40 mg tablet,delayed release (DR/EC) 40 mg PO Q12H atorvastatin 40 MG tablet 40 mg PO QHS aspirin 81 MG tablet,chewable 81 mg PO QHS insulin lispro [Humalog KwikPen Insulin] 100 unit/mL insulin pen 8 unit subcut TIDCM Rx Instructions: with meals sertraline 50 mg tablet 50 mg PO QHS polyethylene glycol 3350 17 gram powder in packet 17 g PO DAILY PRN (Reason: Constipation) omeprazole 20 mg Capsule,Delayed Release(Dr/Ec) 20 mg PO DAILY pregabalin 75 mg Capsule 75 mg PO BID Qty: 10 0RF calcium acetate(phosphat bind) 667 mg Capsule 667 mg PO TID tramadol 50 mg tablet 50 mg PO Q6H PRN (Reason: pain) 3 Days Qty: 5 0RF insulin glargine [Lantus Solostar U-100 Insulin] 100 unit/mL (3 mL) Insulin Pen 10 unit SUBCUT QPM ondansetron 4 mg tablet,disintegrating 4 mg PO Q8H PRN PRN (Reason: Nausea) Qty: 10 0RF hydrocodone-acetaminophen 5-325 mg tablet 1 tab PO Q8H PRN (Reason: pain) 2 Days Qty: 5 0RF oseltamivir [Tamiflu] 75 mg capsule 75 mg PO BID 5 Days Qty: 9 0RF Primary Care Provider: Dennys Serrano Referrals: Dennys Serrano MD [Primary Care Provider] - As Needed Activity Restrictions/Additional Instructions: Follow-up with dialysis either today or tomorrow. Her labs look good today. Disposition Disposition: Home, Self Care
[2023-03-21 10:52] LABS: Absolute Lymphocyte Count 1.24 X10^3/uL (0.83-4.51); Absolute Neutrophil Count 3.4 X10^3/uL (2.0-7.7); Basophil# 0.03 X10^3/uL; Basophil% 0.6 % (0-1); Eosinophil# 0.17 X10^3/uL; Eosinophils% 3.2 % (0-5); Hematocrit 38.1 % (37-47); Hemoglobin 11.8 g/dL (12.0-15.0); Lymphocyte # 1.24 X10^3/ul (0.83-4.51); Lymphocyte % 23.7 % (19-41); Mean Corpuscular Volume 90.3 fL (81-99); Mean Platelet Vol. 10.5 fl (6.2-12.0); Monocyte# 0.37 X10^3/uL; Monocyte% 7.1 % (0-10); NRBC Flagged by Analyzer 0 % (0-5); Neutrophil # 3.42 X10^3/uL (2.7-7.7); Neutrophil % 65.2 % (47-70); Platelet Count 142 K/mm3 (150-450); RBC Distribution Width CV 14.5 % (11.6-14.6); RBC Distribution Width SD 47.6 fl (35.1-43.9); Red Blood Count 4.22 M/mm3 (4.2-5.4); White Blood Count 5.2 K/mm3 (4.4-11.0)
[2023-03-21 10:55] LABS: Anion Gap 10 (5-15); BUN 35 mg/dL (7-18); BUN/Creat Ratio 4.9 RATIO (10-20); Calcium,Total 9.3 mg/dL (8.5-10.1); Chloride 95 mmol/L (98-107); Creatinine, Serum 7.13 mg/dL (0.55-1.02); EST Glomerular Filtration Rate 6 mL/min (>60); Est Glom Filt Rate - Afr Amer 8 mL/min (>60); Estimated Creatinine Clearance 7.55 ml/min; Glucose 227 mg/dL (74-106); Potassium 4.1 mmol/L (3.5-5.1); Sodium Level 136 mmol/L (136-145)
[2023-03-21 11:16] VITALS: BP 151/72; PULSE 91; RESP 17; O2SAT 98
[2023-03-21 11:57] VITALS: BP 149/72; PULSE 86; RESP 18; O2SAT 95
--- NOTE | 2023-03-21 13:03 | ED.RN ---
called and spoke with [facility] at [facility] [phone]. would not get full treatment today, Dr. Chino rollins for treatment tmrw. Patient agrees to this plan.
== END 2023-03-21 13:19 | disposition home or self-care (01) ==
PROVIDERS: Emergency Provider Emergency Medicine; PCP Family Medicine; Visit Provider Emergency Medicine
DX: R55 Syncope and collapse (principal); Z99.2 Dependence on renal dialysis; E11.22 Type 2 diabetes mellitus with diabetic chronic kidney disease; I12.0 Hypertensive chronic kidney disease with stage 5 chronic kidney disease or end stage renal disease; N18.6 End stage renal disease; Z79.4 Long term (current) use of insulin; E78.5 Hyperlipidemia, unspecified
CPT/HCPCS: 80048; 85025; 93005; 99284; A4216

== ENCOUNTER 2023-03-27 09:30 | Outpatient (RCR) | payer MEDICARE, MEDICAID, SELFPAY ==
[2023-03-20 09:14] VITALS: BP 110/66; PULSE 110; RESP 18; BMI 24.3
--- NOTE | 2023-03-20 09:54 | PCM.WC.HP ---
History of Present Illness Date of Service: 03/20/23 Chief Complaint: left heel ulcer left ankle ulcer- healed History of Wound: A 62-year-old female who presents to the wound care center today for left heel ulceration and bilateral lower extremity edema with multiple leg wounds secondary to previous blisters. In October 2019, patient had rubbing in shoes while shopping which led to a blister that developed into an ulceration. Patient was then seen by Dewey Amezquita.P.M. for wound care. Patient then became infected and was admitted to the hospital. Patient was noted to have OM on MRI. Patient wanted to avoid surgery so a terminal make up operator course of appropriate IV antibiotics was the treatment chosen. Patient was also noted to have hyperglycemia and has worked with hospitalist and PCP to try to get better control. Blood sugar levels remain elevated. Patient also had LEAS obtained in the hospital which suggested patient had the proper blood flow to allow healing. Patient has since finished terminal make up operator course of antibiotics. Patient has since been seen on a weekly basis in office with progression and regression of wound noted over the weeks. Patient has tried various dressing options including wet to dry and santyl. The most progress was noted with Santyl but patient ran out and was unable to refill due to insurance issues. During which time the wound regressed. She also has an offloading surgical shoe and offloading boot to relieve pressure. Patient care is henceforth being carried out at the wound care center. Patient not currently on any antibiotics. Patient has since began skin graft aplications significant improvement is been noted to her foot overall. Patient has finished epifix graft applications with some very small remaining wound noted to left heel. Patient has new wounds noted to bilateral third digits. The right 3rd digit wound has healed. Her left ankle ulcer remains healed Patient relates that ambulation is getting easier and she is rebuilding her strength slowly. She has not had any worsening of minor remaining heel wound since beginning ambulation again. 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 Her has been helping her change the dressings daily to the left heel. She had been following in the wound care center in 2021 for left heel ulceration but was subsequently lost to follow-up. She cites transportation issues. She presents to the wound care center today for continued care of her left heel ulceration and bilateral lower extremity wounds secondary to edema. Progress of Wound: Patient presents today at the wound care center for bilateral lower extremity swelling as well as full-thickness ulceration to the left leg. Patient is diabetic and her sugar well-controlled. She does have home health care that comes to her house twice per week. She denies any trauma to the left lower extremity. She denies knowing how the wounds got there but knows that they are chronic in nature when they do appear. She denies trauma. Denies constitutional symptoms. No other pedal complaints at this time. [facility] [place] Medical History Accidental fall Anemia Arthritis Bilateral pleural effusion Cardiology follow-up encounter Chronic pain syndrome CKD (chronic kidney disease) stage 4, GFR 15-29 ml/min Closed intertrochanteric fracture of left hip Depression Diabetes Diabetes mellitus with hyperglycemia Dietary restriction Difficulty chewing Essential hypertension Excessive bleeding Gastric reflux High cholesterol History of echocardiogram History of edema History of orthostatic hypotension History of renal dialysis History of renal disease History of stress test HLD (hyperlipidemia) HTN (hypertension) Hx of orthostatic hypotension Hypoglycemia due to insulin Injury of head and neck Insulin dependent diabetes mellitus Long-term insulin use Low iron Malnutrition Migraine headache Migraine without aura Non-smoker Post-concussion syndrome Stage 5 chronic kidney disease due to type 2 diabetes mellitus Symptomatic anemia Syncope Transfusion of blood during current hospitalisation Uses wheelchair Vertigo Vomiting Walker as ambulation aid Wears glasses Home Medications aspirin 81 mg chewable tablet 81 mg PO QHS HEART HEALTH 12/15/19 [History Last Taken 11/20/22] atorvastatin 40 mg tablet 40 mg PO QHS CHOLESTEROL 12/15/19 [History Last Taken 11/19/22] insulin lispro 100 unit/mL subcutaneous pen (Humalog KwikPen (U-100) Insulin) 8 unit subcut TIDCM diabetes 01/06/22 [History Last Taken 03/13/23] sertraline 50 mg tablet 50 mg PO QHS DEPRESSION 01/06/22 [History Last Taken 11/20/22] polyethylene glycol 3350 17 gram oral powder packet 17 g PO DAILY PRN Constipation 02/13/22 [History Last Taken 03/13/22] omeprazole 20 mg capsule,delayed release 20 mg PO DAILY gerd 04/30/22 [History Last Taken 11/20/22] pregabalin 75 mg capsule 75 mg PO BID #10 caps 05/04/22 [Rx Last Taken 11/20/22] calcium acetate(phosphat bind) 667 mg capsule 667 mg PO TID 05/25/22 [History Last Taken 11/19/22] tramadol 50 mg tablet 50 mg PO Q6H PRN pain 3 days #5 tabs 05/30/22 [Rx Last Taken Unknown] insulin glargine 100 unit/mL (3 mL) subcutaneous pen (Lantus Solostar U-100 Insulin) 10 unit subcut QPM 06/14/22 [History Last Taken 11/19/22] hydrocodone-acetaminophen 5-325mg 5mg-325mg 1 tab PO Q8H PRN pain 2 days #5 tabs 11/21/22 [Rx Last Taken Unknown] diltiazem HCl 180 mg capsule,extended release 24 hr 240 mg PO DAILY 11/28/22 [History Last Taken Unknown] hydralazine 50 mg tablet 25 mg PO TID 11/28/22 [History Last Taken Unknown] flash glucose scanning reader ([employer] Yane [employer] [place]) #1 ea 12/07/22 [Rx Last Taken Unknown] flash glucose sensor (FreeStyle Yane 2 Sensor kit) #2 ea 12/07/22 [Rx Last Taken Unknown] pantoprazole 40 mg tablet,delayed release 40 mg PO Q12H 12/10/22 [History Last Taken Unknown] oseltamivir 75 mg capsule (Tamiflu) 75 mg PO BID 5 days #9 caps 03/14/23 [Rx Last Taken Unknown] ondansetron 4 mg disintegrating tablet 4 mg PO Q8H PRN PRN Nausea #10 tabs 03/17/23 [Rx Last Taken Unknown] Allergy/AdvReac Type Severity Reaction Status Date / Time metformin AdvReac Diarrhea Verified 03/17/23 17:48 Family History Mother Hypertension Father Cancer lymphoma, leukemia Emphysema of lung Hypertension Grandmother Diabetes CVA (cerebral vascular accident) Surgical History History of cholecystectomy History of esophagogastroduodenoscopy (EGD) History of mandibular surgery Hx of colonoscopy S/P arteriovenous (AV) fistula creation S/P arteriovenous (AV) fistula repair S/P arteriovenous (AV) graft repair S/P dialysis catheter insertion Social History household members: significant other housing: half-way Smoking Status: Never smoker alcohol intake: never substance use type: does not use Vital Signs Vital Signs Vital Signs: 03/20/23 09:14 Pulse Rate 110 H Respiratory Rate 18 Blood Pressure 110/66 Blood Pressure Mean 80 Blood Pressure Source Monitor Blood Pressure Position Semi-Fowlers Blood Pressure Location Right Arm Oxygen Delivery Method Room Air Weight Weight: 66.224 kg Body Mass Index (BMI) 24.3 Physical Exam Narrative Vascular: DP and PT pulses are palpable. CFT is brisk. Nonpitting edema appreciated to bilateral lower extremity. Evidence of blanchable erythema appreciated to bilateral lower extremity without proximal streaking. No sign of infection. Neurological: Light touch is intact. No pain with sharp debridement. Protective sensation is diminished. Dermatological: Nonpitting edema appreciated bilateral lower extremity. Full-thickness ulceration and clusters appreciated to the left rick area measuring 2.0 x 1.3 x 0.1 cm. Excisional debridement down to and including subcutaneous tissue with a number 5 mm dermal curette to the anterior aspect of the left leg. Predebridement measurement is 1.7 x 1.0 x 0.1 cm. Postdebridement measurement is 2.0 x 1.3 x 0.1 cm. Musculoskeletal: Muscle strength is 5 out of 5 in all quadrants. No pain with palpation to full-thickness ulceration. No pain with calf compression bilateral. Debridement Note Debridement Note Debridement Free Text: Excisional debridement down to and including subcutaneous tissue with a number 5 mm dermal curette to the anterior aspect of the left leg. Predebridement measurement is 1.7 x 1.0 x 0.1 cm. Postdebridement measurement is 2.0 x 1.3 x 0.1 cm. Post-Debridement Measurements and Additional Note: Post-Debridement Measurements/Treatment WC - Nurse 1 - General Ulcer Assessment Start: 03/20/23 09:14 Freq: Status: Active Protocol: MOOK Activity Type Activity Date Activity User E-sign Co-sign Detail Recorded Client Recorded Date Recorded By Document 03/20/23 09:14 KW Desktop 03/20/23 09:28 KW 03/20/23 09:14 - Today's Visit Information Type of service Initial Visit Arrival Mode Ambulatory, Walker Patient Identification Verified (Name & Yes ) Finger Stick Blood Sugar(mg/dl) (if 152 indicated): Blood Sugar Stated by Patient Height and Weight Height 5 ft 5 in Weight 66.224 kg Weight in Pounds 146.0 lbs Weight Measurement Method Stated by Patient Body Mass Index (BMI) 24.3 BMI Classification Normal BSA - Alisia 1.73 Vital Signs Pulse Rate (60-100) 110 H Pulse Location Monitor Respiratory Rate (12-18) 18 Respiratory rate source Observation Oxygen Delivery Method Room Air Blood Pressure (90/60-120/80) 110/66 Blood Pressure Mean 80 Source Monitor Position Semi-Fowlers Blood Pressure Location Right Arm History Since Last Visit- (Skip if this is Patient's initial visit) Left Footwear Slipper Right Footwear Slipper Pain Scale: 0-10 Numeric Is Patient Pain Free? Yes - Nurse 1 - General Ulcer Measurement Start: 03/20/23 09:14 Freq: Status: Active Protocol: Activity Type Activity Date Activity User E-sign Co-sign Detail Recorded Client Recorded Date Recorded By Document 03/20/23 09:14 KW Desktop 03/20/23 09:28 03/20/23 09:14 Wound Center Nurse 1 #19 LLE CLUSTER -Current Size (cm) - Length 4.0 -Current Size (cm) - Width 5.7 -Current Size (cm) - Depth 0.1 -Total Square Cm 22.80 -Exudate Amt Small -Exudate Type Serosanguineous -Wound Margin Distinct, Outline Attached -Granulation Amt Large (67-100%) -Granulation Quality Red -Texture (Bren-wound Skin Appearance) Assessed -Moisture (Bren-wound Skin Appearance) Dry/Scaly -Color (Bren-wound Skin Appearance) Assessed, Erythema -Temperature (Bren-wound Skin No Abnormality Appearance) (Pt Warm) -Ulcer Cleansing Soap and Water -Anesthetic Used 4% Lidocaine Solution Right Calf (cm) 32.9 Right Ankle (cm) 23.5 Left Calf (cm) 33.5 Left Ankle (cm) 21.0 - Nurse 2 - General Ulcer CM Notes Start: 03/20/23 09:14 Freq: Status: Active Protocol: Activity Type Activity Date Activity User E-sign Co-sign Detail Recorded Client Recorded Date Recorded By Document 03/20/23 09:50 Laptop 03/20/23 09:53 03/20/23 09:50 Wound Center Nurse 2 #19 KARTIKE CLUSTER -Time 09:50 -Correct Patient Yes -Correct Side, Site, Position Yes -Correct Procedure Yes -Procedure Performed Yes -Type of Procedure Debridement -Clinical Debridement Subcutaneous -Tissue Removed Subcutaneous -Post Debridement (cm) - Length 2.0 -Post Debridement (cm) - Width 1.3 -Post Debridement (cm) - Depth 0.1 -Total Square (Post) (cm) 2.60 -Area of Debridement (cm) - Length 2.0 -Area of Debridement (cm) - Width 1.3 -Total Square (Area) (cm) 2.60 -Tunneling No -Undermining/Tunneling No -Circular Undermining No -Wound/Ulcer Outcome Not Healed -Ulcer Cleansing Rinsed/ Irrigated with Saline -Foul Odor after Cleansing No -Bioengineered Tissue No -Bleeding Controlled with Pressure -Treatment Response Procedure Tolerated Well -Offloading No -Debridement - Subq, 1st 20sq cm Yes Pain Scale: 0-10 Numeric Is Patient Pain Free? Yes Assessment/Plan Assessment/Plan (1) Non-pressure chronic ulcer of left calf with fat layer exposed: CODE(S): L97.222 - Non-pressure chronic ulcer of left calf with fat layer exposed PLAN: Patient was examined and evaluated. All findings were discussed with the patient. All questions were answered to the patient satisfaction. Excisional debridement down to and including subcutaneous tissue with a number 5 mm dermal curette to the anterior aspect of the left leg. Predebridement measurement is 1.7 x 1.0 x 0.1 cm. Postdebridement measurement is 2.0 x 1.3 x 0.1 cm. The left lower extremity ulceration was dressed with Xeroform and bilateral 3M double layer wraps were applied to the bilateral lower extremity. Patient is to continue her dialysis as well as practice dry glucose control. Patient was instructed to keep the dressing clean dry and intact not to get them wet and follow-up in 1 week. (2) Bilateral edema of lower extremity: CODE(S): R60.0 - Localized edema (3) Acute painful diabetic polyneuropathy: CODE(S): E11.42 - Type 2 diabetes mellitus with diabetic polyneuropathy
[2023-03-27 09:14] VITALS: BP 101/58; PULSE 103; RESP 18; TEMP 35.7; BMI 24.3
--- NOTE | 2023-03-27 09:56 | PN.PCM_ITS ---
History of Present Illness Date of Service: 03/27/23 Chief Complaint: left heel ulcer left ankle ulcer- healed History of Wound: A 62-year-old female who presents to the wound care center today for left heel ulceration and bilateral lower extremity edema with multiple leg wounds secondary to previous blisters. In October 2019, patient had rubbing in shoes while shopping which led to a blister that developed into an ulceration. Patient was then seen by Dewey Amezquita.P.M. for wound care. Patient then became infected and was admitted to the hospital. Patient was noted to have OM on MRI. Patient wanted to avoid surgery so a mcfp course of appropriate IV antibiotics was the treatment chosen. Patient was also noted to have hyperglycemia and has worked with hospitalist and PCP to try to get better control. Blood sugar levels remain elevated. Patient also had LEAS obtained in the hospital which suggested patient had the proper blood flow to allow healing. Patient has since finished rodent exterminator course of antibiotics. Patient has since been seen on a weekly basis in office with progression and regression of wound noted over the weeks. Patient has tried various dressing options including wet to dry and santyl. The most progress was noted with Santyl but patient ran out and was unable to refill due to insurance issues. During which time the wound regressed. She also has an offloading surgical shoe and offloading boot to relieve pressure. Patient care is henceforth being carried out at the wound care center. Patient not currently on any antibiotics. Patient has since began skin graft aplications significant improvement is been noted to her foot overall. Patient has finished epifix graft applications with some very small remaining wound noted to left heel. Patient has new wounds noted to bilateral third digits. The right 3rd digit wound has healed. Her left ankle ulcer remains healed Patient relates that ambulation is getting easier and she is rebuilding her strength slowly. She has not had any worsening of minor remaining heel wound s jenae beginning ambulation again. 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 Her has been helping her change the dressings daily to the left heel. She had been following in the wound care center in 2021 for left heel ulceration but was subsequently lost to follow-up. She cites transportation issues. She presents to the wound care center today for continued care of her left heel ulceration and bilateral lower extremity wounds secondary to edema. Progress of Wound: Patient presents today at the wound care center for bilateral lower extremity swelling as well as full-thickness ulceration to the left leg. Patient is diabetic and her sugar well-controlled. She does have home health care that comes to her house twice per week. She denies any trauma to the left lower extr emity. She denies knowing how the wounds got there but knows that they are chronic in nature when they do appear. She denies trauma. Denies constitutional symptoms. No other pedal complaints at this time. Subjective Subjective Ms. Benson is a 62-year-old diabetic female on dialysis presenting to the wound care center today [facility] for evaluation of full-thickness wound to the left leg and bilateral swelling. Patient has kept her wraps on and left in clean dry and intact. However, the patient states she cannot get shoes on and is walking barefoot in today's clinic today with her rollator. She admits her blood sugars well-controlled. She denies trauma. She denies any new open lesions or wounds. She denies constitutional symptoms. No other pedal complaints at this time. Objective Data Objective Data Vital Signs: Vital Signs Temp Pulse Resp BP O2 Del Method 96.3 F L 103 H 18 101/58 L Room Air 03/27/23 09:14 03/27/23 09:14 03/27/23 09:14 03/27/23 09:14 03/27/23 09:14 Oxygen Delivery Method Room Air Weight: 66.224 kg Body Mass Index (BMI) 24.3 Physical Exam Narrative Vascular: DP and PT pulses are palpable. CFT is brisk. Nonpitting edema appreciated to bilateral lower extremity. Evidence of blanchable erythema appreciated to bilateral lower extremity without proximal streaking, improved. Nonpitting edema appreciated bilateral lower extremity. No sign of infection. Neurological: Light touch is intact. No pain with sharp debridement. Protective sensation is diminished. Dermatological: Nonpitting edema appreciated bilateral lower extremity. Full- thickness ulceration and clusters appreciated to the left rick area which are now healed. Toenails 1 through 5 are thickened elongated discolored with evidence of subungual debris's bilateral. Musculoskeletal: Muscle strength is 5 out of 5 in all quadrants. No pain with palpation to full-thickness ulceration. No pain with calf compression bilateral. Debridement Note Debridement Note Post-Debridement Measurements and Additional Note: Post-Debridement Measurements/Treatment - Nurse 1 - General Ulcer Assessment Start: 03/20/23 09:14 Freq: Status: Active Protocol: MOOK Activity Type Activity Date Activity User E-sign Co-sign Detail Recorded Client Recorded Date Recorded By Document 03/20/23 09:14 KW Desktop 03/20/23 09:28 KW Document 03/27/23 09:14 KW Desktop 03/27/23 09:29 KW 03/20/23 03/27/23 09:14 09:14 WC - Today's Visit Information Type of service Initial Visit Follow-up Visit (Physician/TRUCK DRIVING ) Arrival Mode Ambulatory, Ambulatory, Walker Walker Patient Identification Verified (Name & Yes Yes ) Finger Stick Blood Sugar(mg/dl) (if 152 indicated): Blood Sugar Stated by Patient Height and Weight Height 5 ft 5 in Weight 66.224 kg Weight in Pounds 146.0 lbs Weight Measurement Method Stated by Patient Body Mass Index (BMI) 24.3 24.3 BMI Classification Normal Normal BSA - Alisia 1.73 Vital Signs Temperature (97.8 F-99.1 F) 96.3 F L Temperature Source Temporal Pulse Rate (60-100) 110 H 103 H Pulse Location Monitor Monitor Respiratory Rate (12-18) 18 18 Respiratory rate source Observation Observation Oxygen Delivery Method Room Air Room Air Blood Pressure (90/60-120/80) 110/66 101/58 L Blood Pressure Mean (mm Hg) 80 72 Source Monitor Monitor Position Semi-Fowlers Semi-Fowlers Blood Pressure Location Right Arm Right Arm History Since Last Visit- (Skip if this is Patient's initial visit) Have you changed medications since your No last visit? Any new allergies or adverse reactions No Had a fall/change in ADL's that may No increase risk of falls Signs or symptoms of abuse and/or No neglect since last visit Have you been in the hospital since your No last visit? Has dressing in place as prescribed Yes Has compression in place as prescribed Yes Has offloadiing in place as prescribed No Experienced any changes in pain level or No management Left Footwear Slipper Regular Shoe Right Footwear Slipper Regular Shoe Pain Scale: 0-10 Numeric Is Patient Pain Free? Yes Yes - Nurse 1 - General Ulcer Measurement Start: 03/20/23 09:14 Freq: Status: Active Protocol: Activity Type Activity Date Activity User E-sign Co-sign Detail Recorded Client Recorded Date Recorded By Document 03/20/23 09:14 KW Desktop 03/20/23 09:28 KW Document 03/27/23 09:14 KW Desktop 03/27/23 09:29 KW 03/20/23 03/27/23 09:14 09:14 Wound Center Nurse 1 #19 LLE CLUSTER -Current Size (cm) - Length 4.0 2 -Current Size (cm) - Width 5.7 0.2 -Current Size (cm) - Depth 0.1 0.1 -Total Square Cm 22.80 0.4 -Exudate Amt Small -Exudate Type Serosanguineous -Wound Margin Distinct, Distinct, Outline Outline Attached Attached -Granulation Amt Large (67-100%) Large (67-100%) -Granulation Quality Red Red -Texture (Bren-wound Skin Appearance) Assessed Assessed -Moisture (Bren-wound Skin Appearance) Dry/Scaly Dry/Scaly -Color (Bren-wound Skin Appearance) Assessed, Assessed, Erythema Erythema -Temperature (Bren-wound Skin No Abnormality No Abnormality Appearance) (Pt Warm) (Pt Warm) -Ulcer Cleansing Soap and Water Soap and Water -Foul Odor after Cleansing No -Anesthetic Used 4% Lidocaine 5% Lidocaine Solution Gel Right Calf (cm) 32.9 32 Right Ankle (cm) 23.5 21.5 Left Calf (cm) 33.5 33.1 Left Ankle (cm) 21.0 21 WC - Nurse 2 - General Ulcer CM Notes Start: 03/20/23 09:14 Freq: Status: Active Protocol: Activity Type Activity Date Activity User E-sign Co-sign Detail Recorded Client Recorded Date Recorded By Document 03/20/23 09:50 Laptop 03/20/23 09:53 Document 03/27/23 09:45 Laptop 03/27/23 09:46 03/20/23 03/27/23 09:50 09:45 Wound Center Nurse 2 #19 LLE CLUSTER -Time 09:50 -Correct Patient Yes No -Correct Side, Site, Position Yes No -Correct Procedure Yes No -Procedure Performed Yes No -Type of Procedure Debridement -Clinical Debridement Subcutaneous -Tissue Removed Subcutaneous -Post Debridement (cm) - Length 2.0 0 -Post Debridement (cm) - Width 1.3 0 -Post Debridement (cm) - Depth 0.1 0 -Total Square (Post) (cm) 2.60 0 -Area of Debridement (cm) - Length 2.0 0 -Area of Debridement (cm) - Width 1.3 0 -Total Square (Area) (cm) 2.60 0 -Tunneling No -Undermining/Tunneling No -Circular Undermining No -Wound/Ulcer Outcome Not Healed Healed- Epithelialized -Ulcer Cleansing Rinsed/ Irrigated with Saline -Foul Odor after Cleansing No -Bioengineered Tissue No -Bleeding Controlled with Pressure -Treatment Response Procedure Tolerated Well -Offloading No -Debridement - Subq, 1st 20sq cm Yes Pain Scale: 0-10 Numeric Is Patient Pain Free? Yes Yes - Nurse 3 - General Ulcer D/C NN Start: 03/20/23 09:14 Freq: Status: Active Protocol: Activity Type Activity Date Activity User E-sign Co-sign Detail Recorded Client Recorded Date Recorded By Document 03/20/23 09:57 Desktop 03/20/23 09:58 KW Document 03/27/23 09:51 Laptop 03/27/23 09:52 03/20/23 03/27/23 09:57 09:51 Wound Care Center Nurse 3 #19 LLE CLUSTER -Primary Dressing Applied NonAdherent Contact Layer Right -Tubular Bandage Double Layer -Size of Tubigrip Used Size D -Size D ($) 2 Left -Multi-Layered Wrap Application Multi-Layer Comp - Bilat ($ ) -Tubular Bandage Double Layer -Size of Tubigrip Used Size D -Size D ($) 2 Pain Scale: 0-10 Numeric Is Patient Pain Free? Yes Yes - Visit Discharge Discharge Condition Stable Ambulatory Status Ambulatory, Walker Transportation Private Auto Medication Reconcilliation completed & Yes provided to patient/care provider Clinical Summary of Care Provided Yes Assessment/Plan Assessment/Plan (1) Non-pressure chronic ulcer of left calf with fat layer exposed: CODE(S): L97.222 - Non-pressure chronic ulcer of left calf with fat layer exposed PLAN: Patient was examined and evaluated. All findings were discussed with the patient. All questions were answered to the patient's satisfaction. Patient's left leg full-thickness ulceration is now healed. Patient be given a prescription for compression stockings to be taken to drug [place] to get sized and fitted. Educated the patient on proper shoe gear and which ones to wear. We will attempt to place surgical shoes on the patient today prior to her discharge from the wound care center as she is now healed. Patient is to continue her dialysis. Patient is continue strict glycemic control educated to check her feet twice per day and apply lotion followed by her compression stockings. Patient is healed to the left leg from podiatry perspective and will be discharged from the wound care center today. She can follow-up when needed.. (2) Peripheral vascular disease: CODE(S): I73.9 - Peripheral vascular disease, unspecified (3) Tinea unguium: CODE(S): B35.1 - Tinea unguium PLAN: The patient's toenails 1 through 5 bilateral were thickened elongated discolored with evidence of subungual debris's. The toenails 1 through 5 bilaterally were debrided down to and including normal levels with a sterile double-action nail nipper without incident. Patient expressed relief after debridement. t
== END 2023-03-28 15:52 | disposition home or self-care (01) ==
LOC: WC 09:30
PROVIDERS: PCP Family Medicine; Referring Provider Family Medicine; Visit Provider Podiatrist Foot & Ankle Surgery
DX: E11.622 Type 2 diabetes mellitus with other skin ulcer (principal); L97.222 Non-pressure chronic ulcer of left calf with fat layer exposed; Z99.2 Dependence on renal dialysis; E11.65 Type 2 diabetes mellitus with hyperglycemia; E11.22 Type 2 diabetes mellitus with diabetic chronic kidney disease; I12.0 Hypertensive chronic kidney disease with stage 5 chronic kidney disease or end stage renal disease; N18.5 Chronic kidney disease, stage 5; I73.9 Peripheral vascular disease, unspecified; Z79.4 Long term (current) use of insulin; G89.4 Chronic pain syndrome; F07.81 Postconcussional syndrome; Z82.3 Family history of stroke; E78.5 Hyperlipidemia, unspecified; S61.209A Unspecified open wound of unspecified finger without damage to nail, initial encounter; Z79.82 Long term (current) use of aspirin; B35.1 Tinea unguium
CPT/HCPCS: 11042; 29581; 99213; G0463

== ENCOUNTER → 2023-04-17 | Outpatient (CLI) | payer MEDICARE, MEDICAID, SELFPAY ==
[2023-04-17 14:55] LABS: Absolute Lymphocyte Count 1.44 X10^3/uL (0.83-4.51); Absolute Neutrophil Count 3.9 X10^3/uL (2.0-7.7); Basophil# 0.04 X10^3/uL; Basophil% 0.7 % (0-1); Eosinophil# 0.18 X10^3/uL; Hematocrit 34.7 % (37-47); Hemoglobin 10.6 g/dL (12.0-15.0); Lymphocyte # 1.44 X10^3/ul (0.83-4.51); Mean Corp Hgb Conc 30.5 g/dL (32-36); Mean Corpuscular Hgb 28.6 pg (27.0-32.0); Mean Corpuscular Volume 93.5 fL (81-99); Mean Platelet Vol. 10.5 fl (6.2-12.0); Monocyte% 6.7 % (0-10); NRBC Flagged by Analyzer 0 % (0-5); Neutrophil % 65.1 % (47-70); Platelet Count 282 K/mm3 (150-450); RBC Distribution Width CV 17.1 % (11.6-14.6); Red Blood Count 3.71 M/mm3 (4.2-5.4)
[2023-04-17 16:22] LABS: Anion Gap 8 (5-15); BUN 28 mg/dL (7-18); BUN/Creat Ratio 5.8 RATIO (10-20); Calcium,Total 9.4 mg/dL (8.5-10.1); Chloride 98 mmol/L (98-107); Creatinine, Serum 4.84 mg/dL (0.55-1.02); EST Glomerular Filtration Rate 10 mL/min (>60); Est Glom Filt Rate - Afr Amer 12 mL/min (>60); Glucose 155 mg/dL (74-106); Sodium Level 137 mmol/L (136-145)
== END | disposition home or self-care (01) ==
PROVIDERS: Physician Assistant; PCP Family Medicine; Visit Provider Surgery
DX: N17.9 Acute kidney failure, unspecified (principal); T82.898A Other specified complication of vascular prosthetic devices, implants and grafts, initial encounter; Z99.2 Dependence on renal dialysis; N18.6 End stage renal disease
CPT/HCPCS: 36415; 80048; 85025

== ENCOUNTER 2023-05-06 11:10 | Day surgery (SDC) | payer MEDICARE, MEDICAID, SELFPAY ==
[2023-05-03 07:29] VITALS: BMI 25.0
--- NOTE | 2023-05-06 11:25 | PCM.HP.BLA ---
History and Physical Date of Admission: 05/06/23 Visit Reasons: FISTULA CHECK Chief Complaint: fistula check Support Merchandiser Required: No Is patient in pain?: No Allergies metformin Adverse Reaction (Verified 04/17/23 13:37) Diarrhea Medications aspirin 81 mg chewable tablet 81 mg PO QHS HEART HEALTH 12/15/19 [History Confirmed 04/17/23] atorvastatin 40 mg tablet 40 mg PO QHS CHOLESTEROL 12/15/19 [History Confirmed 04/17/23] insulin lispro 100 unit/mL subcutaneous pen (Humalog KwikPen (U-100) Insulin) 8 unit subcut TIDCM diabetes 01/06/22 [History Confirmed 04/17/23] sertraline 50 mg tablet 50 mg PO QHS DEPRESSION 01/06/22 [History Confirmed 04/17/23] polyethylene glycol 3350 17 gram oral powder packet 17 g PO DAILY PRN Constipation 02/13/22 [History Confirmed 04/17/23] omeprazole 20 mg capsule,delayed release 20 mg PO DAILY gerd 04/30/22 [History Confirmed 04/17/23] pregabalin 75 mg capsule 75 mg PO BID #10 caps 05/04/22 [Rx Confirmed 04/17/23] calcium acetate(phosphat bind) 667 mg capsule 667 mg PO TID 05/25/22 [History Confirmed 04/17/23] tramadol 50 mg tablet 50 mg PO Q6H PRN pain 3 days #5 tabs 05/30/22 [Rx Confirmed 04/17/23] insulin glargine 100 unit/mL (3 mL) subcutaneous pen (Lantus Solostar U-100 Insulin) 10 unit subcut QPM 06/14/22 [History Confirmed 04/17/23] hydrocodone-acetaminophen 5-325mg 5mg-325mg 1 tab PO Q8H PRN pain 2 days #5 tabs 11/21/22 [Rx Confirmed 04/17/23] diltiazem HCl 180 mg capsule,extended release 24 hr 240 mg PO DAILY 11/28/22 [History Confirmed 04/17/23] hydralazine 50 mg tablet 25 mg PO TID 11/28/22 [History Confirmed 04/17/23] flash glucose scanning reader (CogMetalStyle Y[place] 2 [place]) #1 ea 12/07/22 [Rx Confirmed 04/17/23] flash glucose sensor (FreeStyle Yane 2 Sensor kit) #2 ea 12/07/22 [Rx Confirmed 04/17/23] pantoprazole 40 mg tablet,delayed release 40 mg PO Q12H 12/10/22 [History Confirmed 04/17/23] ondansetron 4 mg disintegrating tablet 4 mg PO Q8H PRN PRN Nausea #10 tabs 03/17/23 [Rx Confirmed 04/17/23] clonidine HCl 0.3 mg tablet 0.3 mg PO 04/17/23 [History Confirmed 04/17/23] midodrine 5 mg tablet mg PO 04/17/23 [History Confirmed 04/17/23] PFSH Medical History Accidental fall Anemia Arthritis Bilateral pleural effusion Cardiology follow-up encounter Chronic pain syndrome CKD (chronic kidney disease) stage 4, GFR 15-29 ml/min Closed intertrochanteric fracture of left hip Depression Diabetes Diabetes mellitus with hyperglycemia Dietary restriction Difficulty chewing Essential hypertension Excessive bleeding Gastric reflux High cholesterol History of echocardiogram History of edema History of orthostatic hypotension History of renal dialysis History of renal disease History of stress test HLD (hyperlipidemia) HTN (hypertension) Hx of orthostatic hypotension Hypoglycemia due to insulin Injury of head and neck Insulin dependent diabetes mellitus Long-term insulin use Low iron Malnutrition Migraine headache Migraine without aura Non-smoker Post-concussion syndrome Stage 5 chronic kidney disease due to type 2 diabetes mellitus Symptomatic anemia Syncope Transfusion of blood during current hospitalisation Uses wheelchair Vertigo Vomiting Walker as ambulation aid Wears glasses Surgical History History of cholecystectomy History of esophagogastroduodenoscopy (EGD) History of mandibular surgery Hx of colonoscopy S/P arteriovenous (AV) fistula creation S/P arteriovenous (AV) fistula repair S/P arteriovenous (AV) graft repair S/P dialysis catheter insertion Family History Mother HypertensionFather Cancer lymphoma, leukemia Emphysema of lung HypertensionGrandmother Diabetes CVA (cerebral vascular accident) Social History household members: significant other housing: detention Smoking Status: Never smoker alcohol intake: never substance use type: does not use HPI HPI HPI: Patient is a 62 y/o F I am following for left forearm radiocephalic AV fistula. Patient was scheduled to have her chest catheters removed on Saturday with Dr. Krueger. The dialysis center had to use the patient's catheters for treatment the Saturday prior due to the fistula being a difficult access. Patient is a T, Th and Sat dialysis patient. Patient notes her fistula was accessed well yesterday without any difficulties. Patient's last intervention was on 03/13/[address] Krueger. Findings included moderate arterial inflow stenosis, however at that time the diminished flow appeared to be from hypotension. Patient's blood pressure since that time has improved. Patient denies any other concerns or issues. She is ready to remove her chest catheters. She is not currently on any blood thinners. ROS General General: No weight change, appetite, fatigue, colon cancer, breast cancer or weakness HEENT HEENT: No difficulty swallowing, eye injury, eye surgery, swollen glands or hoarseness Endo Endocrine: No thyroid disease, diabetes mellitus, thyroid cancer, Hair loss, heat intolerance or cold intolerance Skin Skin: No rash or changing moles Breast Breast: No left breast lump, right breast lump, nipple discharge, breast pain, abnormal mammogram, abnormal US or breast enlargement Musc Musculoskeletal: No back problems, arthritis, rheumatoid arthritis, gout or joint pain Cardio Cardiovascular: No murmur, pacemaker, heart disease, atrial fibrillation, high blood pressure, heart attack, heart stent, palpitations, shortness of breat with exertion or chest pain Psych Psychiatric: No depression, anxiety or hearing voices Resp Respiratory: No shortness of breath, No sleep apnea, No cough, No COPD, No asthma, No emphysema and No wheezing Gastro Gastrointestinal: No abdominal pain, No nausea or vomiting, No diarrhea, No constipation, No blood in stool, No acid reflux, No hemorrhoids, No ulcers, No gallbladder problem and No black,tarry stools Jalil Hematologic: No blood thinners, No blood disorders, No bleeding, No anemia and No blood clots Neuro Neurologic: No system reviewed and no additional complaints, except as documented, No as per HPI, No abnormal gait, No abnormal hearing, No abnormal movements, No abnormal speech, No behavioral changes, No burning sensations, No confusion, No convulsions, No disequilibrium, No dizziness, No localized weakness, No frequent falls, No headache(s), No lack of coordination, No loss of vision, No memory loss, No numbness, No other visual disturbances, No radicular pain, No restless legs, No sensory deficit, No syncope, No tingling, No tremor(s), No weakness and No other Exam Const General: cooperative, comfortable, no acute distress and frail appearing [facility] Head: normal to inspection Eyes General: appearance normal, both eyes and all related structures Neck Neck: normal visual inspection Neck mass: No Resp Effort & Inspection: normal respiratory effort Auscultation: clear to auscultation bilaterally Cardio Rate: regular rate Rhythm: regular rhythm GI Inspection: normal to inspection Musc Cervical Spine: normal cervical lordosis Skin General: no rashes or lesions noted Neuro General: no focal motor deficits and CN's II-XI intact bilaterally Extrem Other: left forearm AV fistula- diminished pulse, bruit and thrill. Psych Appearance: grossly normal Affect: normal affect Assessment and Plan Assessment and Plan (1) Chronic kidney disease, stage V requiring chronic dialysis: Status: Acute Plan: Patient has a left forearm AV fistula with diminished pulse, bruit and thrill. Patient's blood pressure was normal in the office today. I believe prior to having the chest catheters out, it would be of benefit to have a fistulogram. It would be a challenge to have chest catheters replaced if the fistula is not able to be used. Dr. Krueger will plan to perform a left forearm fistulogram. Patient will obtain a CBC and BMP today. If the fistulogram is successful, patient may be scheduled to have her chest catheters removed. Procedure details, risks and benefits have been reviewed with the patient. Patient has had the opportunity to ask and have questions answered. Patient verbally understands and agrees with the plan. Orders: Orders CBC W/Diff, Automated Today N17.9 - Acute kidney failure, unspecified, N18.9 - Chronic kidney disease, unspecified Basic Metabolic Profile (BMP) Today N18.6 - End stage renal disease, T82.898A - Other specified complication of vascular prosthetic devices, implants and grafts, initial encounter, Z99.2 - Dependence on renal dialysis I have examined the patient and the H&P has been reviewed. There are no clinical changes since date of exam. Cisco Krueger M.D., F.A.C.S.
--- NOTE | 2023-05-06 12:21 | OP.PCM_ITS ---
Report of Operation Date of Procedure: 05/06/23 Pre-Operative Diagnosis: Diminished flow left forearm radiocephalic arterioveno us hemodialysis fistula Post-Operative Diagnosis: Left forearm radiocephalic hemodialysis fistula arterial anastomotic stenosis Surgery/Procedure Performed:: Left upper extremity fistulogram with 6 x 80 mm EverCross balloon angioplasty Description of Surgical Findings:: Timeout informed consent was obtained. 70-year-old female was taken to the special procedures lab placed on the table the left upper extremity was sterilely prepped and draped 50 mcg of fentanyl 1 mg Versed were given send intravenous sedation under ultrasound guidance close to the antecubital space the basilic vein which was actually supplying outflow to this fistula was identified under ultrasound guidance 2% lidocaine was used as a local anesthetic 1 cc was used then retrograde with flow micropuncture needle was inserted micropuncture wire inserted 6 Tamazight short sheath was inserted. Using an 035 angled Glidewire access was gained to the radial artery proximal to the anastomosis. Isovue was used to obtain images of the forearm and upper arm. The upper 1 was done later in the case and the chief did become dislodged so I did not get chest access but I have that from previously. There appeared to be moderate 50% stenosis at the arterial anastomosis. Over a Glidewire I placed a 6 x 80 mm EverCross balloon to treat the arterial anastomosis and performed balloon maturation angioplasty of the more proximal portion of the fistula. The patient received 5000 units of heparin. Balloon angioplasty was performed of the arterial anastomotic area and very proximal portion of the fistula that I readjusted balloon and performed angioplasty extending through through the more proximal forearm to balloon maturation that portion of the fistula. After completion removed the balloon which had been insufflated to a maximum of 12 efren of pressure for 3 minutes at the anastomotic area. Then placed a glide cath and completed the posttreatment images demonstrating significant improvement in free flow in the fistula. No apparent complications couple use sutures of 4 oh Banks was placed to treat the access site. There was a pulse thrill and bruit at the completion. Specimens none. Drains none. Blood loss 20 cc. Images demonstrate a mid forearm radiocephalic arteriovenous fistula with approximately 50% arterial stenosis that appeared to resolve subsequent to the angioplasty and there appeared to be general size improvement of the cephalic vein who was outflow then ended up being the basilic vein of the upper arm. Cisco Krueger M.D., F.A.C.SLakhwinder Surgeon: Cisco Krueger Type of Anesthesia: IV Sedation and Local
== END 2023-05-06 13:15 | disposition home or self-care (01) ==
LOC: CLSP 11:11
PROVIDERS: PCP Family Medicine; Referring Provider Family Medicine; Visit Provider Surgery
DX: T82.898A Other specified complication of vascular prosthetic devices, implants and grafts, initial encounter (principal); N17.9 Acute kidney failure, unspecified; Z99.2 Dependence on renal dialysis; E11.22 Type 2 diabetes mellitus with diabetic chronic kidney disease; I12.0 Hypertensive chronic kidney disease with stage 5 chronic kidney disease or end stage renal disease; N18.6 End stage renal disease; Z79.4 Long term (current) use of insulin; G89.4 Chronic pain syndrome; E78.5 Hyperlipidemia, unspecified; Z82.3 Family history of stroke; Y82.9 Unspecified medical devices associated with adverse incidents
CPT/HCPCS: 36902; 76937; 99152; 99153; C1725; C1769

== ENCOUNTER 2023-05-26 11:11 | Emergency (ER) | payer MEDICARE, MEDICAID, SELFPAY ==
[2023-05-26 11:13] VITALS: BP 152/82; PULSE 89; RESP 16; TEMP 36.3; O2SAT 98; BMI 29.2
--- NOTE | 2023-05-26 11:27 | CT_ITS ---
HISTORY: Dialysis cath broken. TECHNIQUE: Helically acquired images were obtained of the chest without contrast. A radiation dose optimization technique was used for this scan. 822 images. COMPARISON: XR 09/05/2022. FINDINGS: LARGE AIRWAYS: Patent. LUNGS: Clear. PLEURA: Trace bilateral pleural effusions. No pneumothorax. HEART/PERICARDIUM: Heart within normal limits in size with coronary artery calcification. No pericardial effusion. VESSELS: Thoracic aorta nondilated. Mild atherosclerosis. MEDIASTINUM/SUNNY: No pathologically enlarged adenopathy. UPPER ABDOMEN: Advanced atherosclerosis. No retained foreign body identified. Small periaortic lymph nodes. BONES: Osteopenia with mild degenerative change. CT/Chest without Contrast IMPRESSION: Interval removal of right internal jugular central venous catheter. No retained catheter fragment identified. Trace bilateral pleural effusions. Electronically Signed: Anusha Vu MD at 12:37 EST ,
--- NOTE | 2023-05-26 11:40 | EX.ED.DYSGE1 ---
HPI <Mili Gaviria RN - Last Filed: 05/26/23 13:28> History of Present Illness Chief Complaint: Chest Other Detail of Chief Complaint: Incidental removal of right chest dialysis catheter Informant: patient Onset/Context/Timing Onset: Today (08) Context: Sudden Onset Narrative Narrative: Patient presents to the ED due to incidental removal of right IJ tunneled dialysis catheter. Patient reports when she woke at 8 AM this morning her dialysis catheter was out and laying in the bed. She denies bleeding at site. She immediately placed Band-Aid over the site. She denies chest pain, shortness of breath, palpitations. Patient reports yesterday at dialysis they were unable to use her left forearm fistula. They then tried to use the right chest catheter. She indicates they were having difficulty with flushing it as it seemed to be clotted. Patient reports she received approximately half of her dialysis treatment yesterday. Patient denies the catheter being sutured in place. She reports it was held in place with with a dressing only. Patient is a Saturday, , Saturday dialysis at [facility] in [place]. She brought her dialysis catheter with her to the ER which appears fractured at end of catheter. Prior similar symptoms: No Recent Illness/Hospitalization: No PFSH <Mili Gaviria RN - Last Filed: 05/26/23 13:28> PFS Medical History Accidental fall Anemia Arthritis Bilateral pleural effusion Cardiology follow-up encounter Chronic pain syndrome CKD (chronic kidney disease) stage 4, GFR 15-29 ml/min Closed intertrochanteric fracture of left hip Depression Diabetes Diabetes mellitus with hyperglycemia Dietary restriction Difficulty chewing Essential hypertension Excessive bleeding Gastric reflux High cholesterol History of echocardiogram History of edema History of orthostatic hypotension History of renal dialysis History of renal disease History of stress test HLD (hyperlipidemia) HTN (hypertension) Hx of orthostatic hypotension Hypoglycemia due to insulin Injury of head and neck Insulin dependent diabetes mellitus Long-term insulin use Low iron Malnutrition Migraine headache Migraine without aura Non-smoker Post-concussion syndrome Stage 5 chronic kidney disease due to type 2 diabetes mellitus Symptomatic anemia Syncope Transfusion of blood during current hospitalisation Uses wheelchair Vertigo Vomiting Walker as ambulation aid Wears glasses Home Medications aspirin 81 mg chewable tablet 81 mg PO QHS [facility] 12/15/19 [History Last Taken 11/20/22] atorvastatin 40 mg tablet 40 mg PO QHS CHOLESTEROL 12/15/19 [History Last Taken 11/19/22] insulin lispro 100 unit/mL subcutaneous pen (Humalog KwikPen (U-100) Insulin) 8 unit subcut TIDCM diabetes 01/06/22 [History Last Taken 03/13/23] sertraline 50 mg tablet 50 mg PO QHS DEPRESSION 01/06/22 [History Last Taken 11/20/22] polyethylene glycol 3350 17 gram oral powder packet 17 g PO DAILY PRN Constipation 02/13/22 [History Last Taken 03/13/22] omeprazole 20 mg capsule,delayed release 20 mg PO DAILY gerd 04/30/22 [History Last Taken 11/20/22] pregabalin 75 mg capsule 75 mg PO BID #10 caps 05/04/22 [Rx Last Taken 11/20/22] calcium acetate(phosphat bind) 667 mg capsule 667 mg PO TID 05/25/22 [History Last Taken 11/19/22] tramadol 50 mg tablet 50 mg PO Q6H PRN pain 3 days #5 tabs 05/30/22 [Rx Last Taken Unknown] insulin glargine 100 unit/mL (3 mL) subcutaneous pen (Lantus Solostar U-100 Insulin) 10 unit subcut QPM 06/14/22 [History Last Taken 11/19/22] hydrocodone-acetaminophen 5-325mg 5mg-325mg 1 tab PO Q8H PRN pain 2 days #5 tabs 11/21/22 [Rx Last Taken Unknown] diltiazem HCl 180 mg capsule,extended release 24 hr 240 mg PO DAILY 11/28/22 [History Last Taken Unknown] hydralazine 50 mg tablet 25 mg PO TID 11/28/22 [History Last Taken Unknown] flash glucose scanning reader (VarthanaStyle Yane 2 [place]) #1 ea 12/07/22 [Rx Last Taken Unknown] flash glucose sensor (FreeStyle Yane 2 Sensor kit) #2 ea 12/07/22 [Rx Last Taken Unknown] pantoprazole 40 mg tablet,delayed release 40 mg PO Q12H 12/10/22 [History Last Taken Unknown] ondansetron 4 mg disintegrating tablet 4 mg PO Q8H PRN PRN Nausea #10 tabs 03/17/23 [Rx Last Taken Unknown] clonidine HCl 0.3 mg tablet 0.3 mg PO 04/17/23 [History Last Taken Unknown] midodrine 5 mg tablet mg PO 04/17/23 [History Last Taken Unknown] Allergy/AdvReac Type Severity Reaction Status Date / Time metformin AdvReac Diarrhea Verified 04/17/23 13:37 Family History Mother Hypertension Father Cancer lymphoma, leukemia Emphysema of lung Hypertension Grandmother Diabetes CVA (cerebral vascular accident) Surgical History History of cholecystectomy History of esophagogastroduodenoscopy (EGD) History of mandibular surgery Hx of colonoscopy S/P arteriovenous (AV) fistula creation S/P arteriovenous (AV) fistula repair S/P arteriovenous (AV) graft repair S/P dialysis catheter insertion Social History household members: significant other housing: jail Smoking Status: Never smoker alcohol intake: never substance use type: does not use ROS <Mili Gaviria RN - Last Filed: 05/26/23 13:28> ROS ED Constitutional Constitutional ED: Denies chills, fever(s) or sweats Cardiovascular Cardiovascular: Denies chest pain, palpitations or racing heartbeat Respiratory/Chest Respiratory/Chest: Denies cough or dyspnea Gastrointestinal Gastrointestinal: Denies abdominal pain, diarrhea, nausea or vomiting Genitourinary Genitourinary ED: Reports other Details: Patient reports that she still urinates. Denies dysuria, hematuria, or urinary frequency. Musculoskeletal Musculoskeletal: Denies arthralgias or myalgias Neurologic Neurologic: Denies headache(s), paresthesias or weakness Psychiatric Psychiatric: Denies anxiety EXAM <Mili Gaviria RN - Last Filed: 05/26/23 13:28> Physical Exam Const Vital Signs: 05/26/23 11:13 Temperature 97.3 F L Temperature Source Temporal Pulse Rate 89 Respiratory Rate 16 Blood Pressure 152/82 H Blood Pressure Mean 105 Pulse Ox 98 Oxygen Delivery Method Room Air Positive well nourished and well developed General Appearance ED: well developed and NAD HEENT Reports moist mucous membranes Eyes PERRL and EOMs intact bilaterally Chest Wall palpation of chest normal Chest Narrative: Right upper chest insertion site of tunneled dialysis catheter with small amount of dried blood. Cleansed with ChloraPrep. No sutures present. No drainage or redness noted. Resp normal respiratory effort and clear to auscultation bilaterally Auscultation: Negative for rales, rhonchi or wheezes Cardio regular rate, regular rhythm, S1 normal heart sound and S2 normal heart sound GI normal to inspection, nondistended, normoactive bowel sounds, non-tender and non-distended Palpation: soft Extremity normal to inspection Extremity Narrative: Mild chronic bilateral lower extremity edema. General Extremety ED: Yes edema; Negative for tenderness or other findings General Extremity: edema; Negative for other findings Neuro oriented x3 Sensorium / Orientation: alert Motor Exam: strength 5/5 throughout Psych mental status grossly normal Skin no rashes or lesions noted and no wounds <Dr. Linda Hernandez MD - Last Filed: 05/26/23 12:59> Physical Exam Const Vital Signs: 05/26/23 11:13 Temperature 97.3 F L Temperature Source Temporal Pulse Rate 89 Respiratory Rate 16 Blood Pressure 152/82 H Blood Pressure Mean 105 Pulse Ox 98 Oxygen Delivery Method Room Air MDM <Mili Gaviria RN - Last Filed: 05/26/23 13:28> [facility] MDM Narrative Medical decision making narrative: Patient placed on secured entrance monitor to monitor for arrhythmias. IV line inserted. Labwork obtained to evaluate for leukocytosis, anemia, and electrolyte derangement. Patient's medical record reviewed. Patient's right IJ 19 cm tunneled dialysis catheter inserted 09/05/[address] Cisco Krueger. Surgery notes indicate catheter was secured to skin with 3-0 nylon sutures. Catheter measured at 19 cm from insertion to tip. However, tip of catheter appears fractured. Clot noted in end of catheter. CT chest ordered to evaluate for retained particles from dialysis catheter. History & Record Review Discussion w/independent historian: Patient Lab Data Labs: Laboratory Results - last 24 hr 05/26/23 12:20 WBC 5.6 RBC 3.96 L Hgb 11.4 L Hct 37.4 MCV 94.4 MCH 28.8 MCHC 30.5 L RDW Std Deviation 52.2 H RDW Coeff of Chris 14.8 H Plt Count 136 L MPV 11.2 Immature Gran % (Auto) 0.200 Neut % (Auto) 65.8 Lymph % (Auto) 21.3 Hinds % (Auto) 6.8 Eos % (Auto) 4.6 Baso % (Auto) 1.3 H Absolute Neuts (auto) 3.7 Absolute Lymphs (auto) 1.19 Nucleated RBC % 0 PT 13.0 INR 1.0 APTT 28.6 Sodium 141 Potassium 4.7 Chloride 108 H Carbon Dioxide 27.0 Anion Gap 6 BUN 40 H Creatinine 5.15 H Estim Creat Clear Calc 12.11 Est GFR (MDRD) Af Amer 11 L Est GFR (MDRD) Non-Af 9 L BUN/Creatinine Ratio 7.8 L Glucose 188 H Calcium 9.0 Radiography Diagnostic Testing: Clinical Impression(s) from Imaging Studies Chest CT 05/26/23 11:27 IMPRESSION: Interval removal of right internal jugular central venous catheter. No retained catheter fragment identified. Trace bilateral pleural effusions. Electronically Signed: Anusha Vu MD at 12:37 EST Reading Location ID and State: [facility] / [place] Tel , Service support , Management Discussion w/another healthcare provider: Other (Dr. Hernandez, ED provider) Treatment and Re-Evaluation :: Lab work reviewed. CBC indicates normal white blood cell count of 5.6. Hemoglobin is 11.4 which is higher than her last hemoglobin on 04/17/2023 which was 10.6. Platelets are 136 which is consistent with patient's baseline. Chemistries show a normal sodium of 141 and potassium 4.7. BUN is 40 and creatinine is 5.15. Patient only received half of dialysis treatment yesterday. Her GFR is 9. Glucose is elevated at 188. CT of the chest shows no retained foreign body. Prieto Hernandez discussed case with Dr. Henderson from surgery who was updated on labs and imaging. He recommends calling Dr. Krueger tomorrow. Patient will be discharged home and to call Dr. Krueger tomorrow. Upon reevaluation, patient awake and alert in bed. No acute distress noted. Discussed lab work and imaging with patient. Patient will aware that catheter was removed in its entirety. She will call Dr. Krueger tomorrow. Patient to be discharged home. Patient seen and evaluated with [employer] student. I personally interviewed and examined the patient. I was involved in all aspects of patient's orders, interpretation of results, and treatment. Patient presents via EMS after her right IJ dialysis port fell out. She had a tunneled right IJ dialysis catheter placed in August of last year by Dr. Krueger. She also has a left arm fistula. Patient states she went for her dialysis yesterday. They were able to do about half and run but not the full run. They had difficulty with left arm fistula but were unable to get blood from her port. Patient states that when she woke this morning the dialysis catheter was laying in the bed with her and it completely pulled out. No bleeding from the site. She was unsure if the catheter may have fractured and left a portion in the vessel. Patient sitting upright in bed no acute distress. Head and neck examination unremarkable. Heart is regular rate and rhythm. Lung sounds are clear. Abdomen is soft and nontender. Left upper extremity fistula with thrill. Lab work is obtained. CBC reveals a white count of 5.6 with a hemoglobin of 11.4. This is near her baseline. Chemistry studies reveal potassium of 4.7. BUN is 40 and creatinine is 5.15. Glucose is 188. Coags are unremarkable. CT scan of the chest is obtained and reveals interval removal of the right IJ catheter. No retained catheter fragments noted. We did review the surgical note from when the catheter was placed. They documented a 19 cm catheter was used and the catheter she has at bedside does measure the same. I spoke with Dr. Henderson, on-call for surgery. Patient can be discharged to home and will call Dr. Krueger tomorrow. Patient states they plans to use her left arm fistula on Saturday, although because they were having difficulty with access we want to ensure surgery is aware in case she needs new access placed. <Dr. Linda Hernandez MD - Last Filed: 05/26/23 12:59> [facility] Lab Data Labs: Laboratory Results - last 24 hr 05/26/23 12:20 WBC 5.6 RBC 3.96 L Hgb 11.4 L Hct 37.4 MCV 94.4 MCH 28.8 MCHC 30.5 L RDW Std Deviation 52.2 H RDW Coeff of Chris 14.8 H Plt Count 136 L MPV 11.2 Immature Gran % (Auto) 0.200 Neut % (Auto) 65.8 Lymph % (Auto) 21.3 Hinds % (Auto) 6.8 Eos % (Auto) 4.6 Baso % (Auto) 1.3 H Absolute Neuts (auto) 3.7 Absolute Lymphs (auto) 1.19 Nucleated RBC % 0 PT 13.0 INR 1.0 APTT 28.6 Sodium 141 Potassium 4.7 Chloride 108 H Carbon Dioxide 27.0 Anion Gap 6 BUN 40 H Creatinine 5.15 H Estim Creat Clear Calc 12.11 Est GFR (MDRD) Af Amer 11 L Est GFR (MDRD) Non-Af 9 L BUN/Creatinine Ratio 7.8 L Glucose 188 H Calcium 9.0 Radiography Diagnostic Testing: Clinical Impression(s) from Imaging Studies Chest CT 05/26/23 11:27 IMPRESSION: Interval removal of right internal jugular central venous catheter. No retained catheter fragment identified. Trace bilateral pleural effusions. Electronically Signed: Anusha Vu MD at 12:37 EST Reading Location ID and State: [facility] / [place] Tel , Service support , Treatment and Re-Evaluation :: Patient seen and evaluated with [employer] student. I personally interviewed and examined the patient. I was involved in all aspects of patient's orders, interpretation of results, and treatment. Patient presents via EMS after her right IJ dialysis port fell out. She had a tunneled right IJ dialysis catheter placed in August of last year by Dr. Krueger. She also has a left arm fistula. Patient states she went for her dialysis yesterday. They were able to do about half and run but not the full run. They had difficulty with left arm fistula but were unable to get blood from her port. Patient states that when she woke this morning the dialysis catheter was laying in the bed with her and it completely pulled out. No bleeding from the site. She was unsure if the catheter may have fractured and left a portion in the vessel. Patient sitting upright in bed no acute distress. Head and neck examination unremarkable. Heart is regular rate and rhythm. Lung sounds are clear. Abdomen is soft and nontender. Left upper extremity fistula with thrill. Lab work is obtained. CBC reveals a white count of 5.6 with a hemoglobin of 11.4. This is near her baseline. Chemistry studies reveal potassium of 4.7. BUN is 40 and creatinine is 5.15. Glucose is 188. Coags are unremarkable. CT scan of the chest is obtained and reveals interval removal of the right IJ catheter. No retained catheter fragments noted. We did review the surgical note from when the catheter was placed. They documented a 19 cm catheter was used and the catheter she has at bedside does measure the same. I spoke with Dr. Henderson, on-call for surgery. Patient can be discharged to home and will call Dr. Krueger tomorrow. Patient states they plans to use her left arm fistula on Saturday, although because they were having difficulty with access we want to ensure surgery is aware in case she needs new access placed. Discharge Plan Triage Chief Complaint: Chest Other ED Provider: Linda Hernandez Dx/Rx/DC Orders Clinical Impression: Encounter for dialysis catheter care Prescriptions: No Action (DME) FreeStyle Yane 2 [place] Misc See Rx Instructions .Route Qty: 1 0RF Rx Instructions: As directed (DME) FreeStyle Yane 2 Sensor Kit See Rx Instructions .Route Qty: 2 6RF Rx Instructions: As directed hydralazine 50 mg tablet 25 mg PO TID diltiazem HCl 180 mg capsule,extended release 24hr 240 mg PO DAILY pantoprazole 40 mg tablet,delayed release (DR/EC) 40 mg PO Q12H midodrine 5 mg tablet PO clonidine HCl 0.3 mg tablet 0.3 mg PO atorvastatin 40 MG tablet 40 mg PO QHS aspirin 81 MG tablet,chewable 81 mg PO QHS insulin lispro [Humalog KwikPen Insulin] 100 unit/mL insulin pen 8 unit subcut TIDCM Rx Instructions: with meals sertraline 50 mg tablet 50 mg PO QHS polyethylene glycol 3350 17 gram powder in packet 17 g PO DAILY PRN (Reason: Constipation) omeprazole 20 mg Capsule,Delayed Release(Dr/Ec) 20 mg PO DAILY pregabalin 75 mg Capsule 75 mg PO BID Qty: 10 0RF calcium acetate(phosphat bind) 667 mg Capsule 667 mg PO TID tramadol 50 mg tablet 50 mg PO Q6H PRN (Reason: pain) 3 Days Qty: 5 0RF insulin glargine [Lantus Solostar U-100 Insulin] 100 unit/mL (3 mL) Insulin Pen 10 unit SUBCUT QPM ondansetron 4 mg tablet,disintegrating 4 mg PO Q8H PRN PRN (Reason: Nausea) Qty: 10 0RF hydrocodone-acetaminophen 5-325 mg tablet 1 tab PO Q8H PRN (Reason: pain) 2 Days Qty: 5 0RF Primary Care Provider: Dennys Serrano Referrals: Dennys Serrano MD [Primary Care Provider] - Activity Restrictions/Additional Instructions: Your dialysis catheter was pulled out in its entirety. No fragments are remaining. Your potassium today is normal. Please call Dr. Krueger tomorrow. If there is difficulty with your fistula access at your next dialysis treatment he will need urgent access for continued care. Disposition Disposition: Home, Self Care
[2023-05-26 12:30] LABS: Absolute Lymphocyte Count 1.19 X10^3/uL (0.83-4.51); Absolute Neutrophil Count 3.7 X10^3/uL (2.0-7.7); Basophil# 0.07 X10^3/uL; Basophil% 1.3 % (0-1); Eosinophil# 0.26 X10^3/uL; Eosinophils% 4.6 % (0-5); Hematocrit 37.4 % (37-47); Hemoglobin 11.4 g/dL (12.0-15.0); Lymphocyte # 1.19 X10^3/ul (0.83-4.51); Lymphocyte % 21.3 % (19-41); Mean Corp Hgb Conc 30.5 g/dL (32-36); Mean Corpuscular Hgb 28.8 pg (27.0-32.0); Mean Corpuscular Volume 94.4 fL (81-99); Mean Platelet Vol. 11.2 fl (6.2-12.0); Monocyte# 0.38 X10^3/uL; Monocyte% 6.8 % (0-10); NRBC Flagged by Analyzer 0 % (0-5); Neutrophil # 3.69 X10^3/uL (2.7-7.7); Neutrophil % 65.8 % (47-70); Platelet Count 136 K/mm3 (150-450); RBC Distribution Width CV 14.8 % (11.6-14.6); RBC Distribution Width SD 52.2 fl (35.1-43.9); Red Blood Count 3.96 M/mm3 (4.2-5.4); White Blood Count 5.6 K/mm3 (4.4-11.0)
[2023-05-26 12:39] LABS: Partial Thromboplast Time 28.6 Seconds (24.1-36.2)
--- OUTSIDE RECORDS SUMMARY | 2023-05-26 12:40 | XMS RPT_ITS | CCD ---
Author Name Unknown Address [address] [place] [address] [address] [place] [address] Organization [facility] Care Team Providers Care Anesthesia Technician Name Role Phone Dennys Baez MD Primary Care Provider [phone] [facility] Unavailable [facility] Unavailable EMILY ROSALES Attending Unavailable DENNYS BAEZ Primary Care Unavailable DENNYS BAEZ Primary Care Unavailable DENNYS BAEZ Primary Care Unavailable GABRIELA SIDHU Attending Unavailable DENNYS BAEZ Primary Care Unavailable DENNYS BAEZ Attending Unavailable DENNYS BAEZ Referring Unavailable NESTOR, DENNYS Olivares Primary Care Unavailable DENNYS BAEZ Referring Unavailable DENNYS BAEZ Primary Care Unavailable Usha PASTRANA Attending Unavailable DENNYS BAEZ Primary Care Unavailable GRANT JUÁREZ Attending Unavailable DENNYS BAEZ Primary Care Unavailable DENNYS BAEZ Primary Care Unavailable DENNYS BAEZ Attending Unavailable BRIANNA MARTINEZ Referring Unavailable NESTOR, DENNYS Olivares Primary Care Unavailable AUBREE TERRY Referring Unavailable NESTOR, DENNYS Olivares Primary Care Unavailable AUBREE TERRY Referring Unavailable DENNYS BAEZ Primary Care Unavailable NESTOR, DENNYS Olivares Primary Care Unavailable NESTOR, DENNYS Olivares Primary Care Unavailable Usha PASTRANA Attending Unavailable DENNYS BAEZ Primary Care Unavailable DENNYS BAEZ Primary Care Unavailable XENIA JAQUEZ Attending Unavailable JACQUIE COX Attending Unavailable DENNYS BAEZ Primary Care Unavailable Allergies Allergy Classification Reported Allergen(s) Allergy Type Date of Onset Reaction(s) Facility (20 sources) metFORMIN; Translations: [METFORMIN] Drug Allergy 10-09-2018 GI Upset [facility] Work Phone: Medications Current Medications Medication Drug Class(es) Dates Sig (Normalized) Sig (Original) calcium acetate 667 mg oral capsule (20 sources) Start: 05-23-2022 End: 02-03-2023 take 1 capsule by mouth three times daily calcium acetate,phosphat bind, (PHOSLO) 667 mg capsule Take 1 capsule by mouth three times daily. 90 capsule 0 11/05/2022 02/03/2023 Active Completed/Discontinued Medications Medication Drug Class(es) Dates Sig (Normalized) Sig (Original) acetaminophen 325 mg / HYDROcodone bitartrate 5 mg oral tablet (14 sources) Opioid Agonist Start: 11-21-2022 HYDROcodone-acetami nophen (NORCO) 5-325 mg per tablet aspirin 81 mg chewable tablet (20 sources) Platelet Aggregation Inhibitor, Nonsteroidal Anti-inflammatory Drug Start: 10-20-2018 take 1 tablet by mouth once daily aspirin 81 mg chewable tablet Indications: Hypertension, unspecified type , Hyperlipidemia, unspecified hyperlipidemia type Take 1 tablet by mouth once daily. 30 tablet 0 10/20/2018 Active Problems Active Problems Problem Classification Problem Date Documented Da te Episodic/Chronic Acute and unspecified renal failure (1 source) Acute injury of kidney; Translations: [Acute kidney failure, unspecified] Episodic Blindness and vision defects (2 sources) Disorder of refraction; Translations: [Unspecified disorder of refraction] Episodic Cataract (3 sources) Bilateral senile combined form cataracts of eyes; Translations: [Combined forms of age-related cataract, bilateral] Onset: 4 Chronic Chronic kidney disease (20 sources) Chronic kidney disease stage 3B ; Translations: [Stage 3b chronic kidney disease (HCC)] Onset: 2 Chronic Chronic ulcer of skin (2 sources) Ulcer of rick; Translations: [Non-pressure chronic ulcer of other part of unspecified lower leg limited to breakdown of skin] Onset: 3 02-06-2023 Chronic Congestive heart failure; nonhypertensive (11 sources) Acute on chronic combined systolic and diastolic heart failure; Translations: [Acute on chronic combined systolic (congestive) and diastolic (congestive) heart failure] Onset: 3 Chronic Deficiency and other anemia (2 sources) Anemia of chronic disease; Translations: [Anemia in other chronic diseases classified elsewhere] Chronic Deficiency and other anemia (1 source) Anemia in other chronic diseases classified elsewhere; Translations: [Anemia, chronic disease] Onset: 3 Chronic Deficiency and other anemia (2 sources) Anemia; Translations: [Anemia, unspecified] Episodic Deficiency and other anemia (2 sources) Iron deficiency anemia; Translations: [Iron deficiency anemia, unspecified] Episodic Delirium, dementia, and amnestic and other cognitive disorders (2 sources) Frailty; Translations: [Age-related physical debility] Onset: 3 02-06-2023 Chronic Diabetes mellitus with complications (20 sources) Latent autoimmune diabetes mellitus in adult; 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)] Onset: 2 Chronic Disorders of lipid metabolism (8 sources) Hyperlipidemia; Translations: [Hyperlipidemia, unspecified] Onset: 3 Chronic Esophageal disorders (3 sources) Gastroesophageal reflux disease without esophagitis; Translations: [Gastro-esophageal reflux disease without esophagitis] Onset: 3 02-27-2023 Chronic Essential hypertension (20 sources) Benign essential hypertension; Translations: [Essential (primary) hypertension] Onset: 9 10-29-2018 Chronic Fluid and electrolyte disorders (1 source) Hypokalemia; Translations: [Hypokalemia] Episodic Gastrointestinal hemorrhage (1 source) Gastrointestinal hemorrhage; Translations: [Gastrointestinal hemorrhage, unspecified] Episodic Genitourinary symptoms and ill-defined conditions (2 sources) Proteinuria; Translations: [Proteinuria, unspecified] Episodic Immunizations and screening for infectious disease (5 sources) Vaccination needed; Translations: [Encounter for immunization] Onset: 3 Episodic Mood disorders (6 sources) Depressive disorder; Translations: [Depressive disorder] Onset: 3 02-27-2023 Chronic Nutritional deficiencies (20 sources) Malnutrition (calorie); Translations: [Moderate protein-calorie malnutrition] Onset: 9 10-29-2018 Chronic Occlusion or stenosis of precerebral arteries (5 sources) Carotid artery occlusion; Translations: [Occlusion and stenosis of unspecified carotid artery] Onset: 3 02-27-2023 Chronic Other aftercare (2 sources) Post-discharge follow-up; Translations: [Encounter for follow-up examination after completed treatment for conditions other than malignant neoplasm] Episodic Other and unspecified benign neoplasm (3 sources) History of polyp of colon; Translations: [Personal history of colonic polyps] Onset: 3 02-27-2023 Episodic Other connective tissue disease (4 sources) History of osteomyelitis; Translations: [Personal history of other diseases of the musculoskeletal system and connective tissue] Onset: 3 02-27-2023 Episodic Other diseases of kidney and ureters (2 sources) Renal impairment; Translations: [Disorder of kidney and ureter, unspecified] Episodic Other diseases of veins and lymphatics (4 sources) Lymphedema; Translations: [Lymphedema, not elsewhere classified] Onset: 3 02-27-2023 Chronic Other eye disorders (1 source) Vitreous hemorrhage, bilateral; Translations: [Vitreous hemorrhage of both eyes (HCC)] Onset: 4 Chronic Other liver diseases (1 source) Elevated liver enzymes level; Translations: [Abnormal levels of other serum enzymes] 02-28-2023 Episodic Other lower respiratory disease (4 sources) Hypoxia; Translations: [Hypoxemia] Onset: 3 Episodic Other nervous system disorders (20 sources) Chronic pain syndrome; Translations: [Chronic pain syndrome] Onset: 2 06-19-2021 Chronic Other nervous system disorders (20 sources) Autonomic neuropathy; Translations: [Disorder of the autonomic nervous system, unspecified] Onset: 2 03-19-2022 Chronic Other nervous system disorders (1 source) Chronic pain syndrome; Translations: [Chronic pain syndrome] Onset: 2 Chronic Other nervous system disorders (1 source) Disturbance in speech; Translations: [Other speech disturbances] Episodic Other nutritional; endocrine; and metabolic disorders (1 source) Weight gain; Translations: [Abnormal weight gain] Episodic Other screening for suspected conditions (not mental disorders or infectious disease) (4 sources) Patient encounter status; Translations: [Encounter for screening mammogram for malignant neoplasm of breast] Episodic Other skin disorders (1 source) Unspecified skin changes; Translations: [Impaired skin integrity] Onset: 3 Episodic Pleurisy; pneumothorax; pulmonary collapse (1 source) Pleural effusion; Translations: [Pleural effusion, not elsewhere classified] Episodic Residual codes; unclassified (1 source) Awaiting transplantation; Translations: [Awaiting organ transplant status] 02-06-2023 Chronic Residual codes; unclassified (1 source) Edema; Translations: [Edema, unspecified] Episodic Residual codes; unclassified (1 source) Noncompliance with treatment; Translations: [Noncompliance] Episodic Residual codes; unclassified (1 source) Localized edema; Translations: [Bilateral leg edema] Onset: 3 Episodic Superficial injury; contusion (2 sources) Contusion of left foot; Translations: [Contusion of left foot, initial encounter] Onset: 3 02-27-2023 Episodic Varicose veins of lower extremity (1 source) Skin ulcer; Translations: [Varicose veins of unspecified lower extremity with ulcer of unspecified site] 02-27-2023 Episodic Past or Other Problems Problem Classification Problem Date Documented Da te Episodic/Chronic Conditions associated with dizziness or vertigo (4 sources) Vertigo; Translations: [Dizziness and giddiness] Onset: 02-17-2021 02-27-2023 Episodic Diabetes mellitus without complication (3 sources) Hyperglycemia; Translations: [Hyperglycemia, unspecified] Onset: 01-11-2022 02-27-2023 Episodic Malaise and fatigue (20 sources) Asthenia; Translations: [Other malaise] Onset: 10-28-2018 10-28-2018 Episodic Open wounds of extremities (6 sources) Impaired wound healing; Translations: [Unspecified open wound, left foot, initial encounter] Onset: 2022 Episodic Other circulatory disease (20 sources) Orthostatic hypotension; Translations: [Orthostatic hypotension] Onset: 09-10-2012 12-02-2019 Episodic Other nervous system disorders (20 sources) Ataxia; Translations: [Ataxia, unspecified] Onset: 10-28-2018 10-28-2018 Episodic Other nervous system disorders (1 source) Other speech disturbances; Translations: [Garbled speech] Onset: 06-22-2022 Episodic Other nervous system disorders (1 source) Ataxia, unspecified; Translations: [Ataxia] Onset: 10-28-2018 Episodic Syncope (3 sources) Syncope symptom; Translations: [Syncope and collapse] Onset: 11-03-2018 02-27-2023 Episodic Results Test Name Value Interpretation Reference Range Facil ity Vital Signs Date Time Vital Sign Value Performing Clinician Chandana garner 02-27-2023 15:12-0500 Body height 165.1 cm Dennys Baez MD Work Phone: [facility] 02-27-2023 15:12-0500 Body weight 66.04 kg Dennys Baez MD Work Phone: [facility] 02-27-2023 15:12-0500 Diastolic blood pressure 60 mm[Hg] Dennys Baez MD Work Phone: [facility] 02-27-2023 15:12-0500 Heart rate 67 /min Dennys Baez MD Work Phone: [facility] 02-27-2023 15:12-0500 SaO2% (BldA) [Mass fraction] 99 % Dennys Baez MD Work Phone: [facility] 02-27-2023 15:12-0500 Systolic blood pressure 106 mm[Hg] Dennys Baez MD Work Phone: [facility] 02-06-2023 11:56-0500 Body height 165.[address] [facility] 02-06-2023 11:56-0500 Body weight 66.[address] [facility] 02-06-2023 10:49-0500 Body height 165.1 cm [facility] Work Phone: [facility] 02-06-2023 10:49-0500 Body temperature 96.91 [degF] [facility] Work Phone: [facility] 02-06-2023 10:49-0500 Body weight 66.1 kg [facility] Work Phone: [facility] 02-06-2023 10:49-0500 Diastolic blood pressure 58 mm[Hg] [facility] Work Phone: [facility] 02-06-2023 10:49-0500 Heart rate 65 /min [facility] Work Phone: [facility] 02-06-2023 10:49-0500 SaO2% (BldA) [Mass fraction] 100 % [facility] Work Phone: [facility] 02-06-2023 10:49-0500 Systolic blood pressure 125 mm[Hg] [facility] Work Phone: [facility] 02-06-2023 10:28-0500 Body height 165.1 cm [facility] Work Phone: [facility] 02-06-2023 10:28-0500 Body temperature 96.91 [degF] [facility] Work Phone: [facility] 02-06-2023 10:28-0500 Body weight 66.09 kg [facility] Work Phone: [facility] 02-06-2023 10:28-0500 Diastolic blood pressure 58 mm[Hg] [facility] Work Phone: [facility] 02-06-2023 10:28-0500 Heart rate 65 /min [facility] Work Phone: [facility] 02-06-2023 10:28-0500 SaO2% (BldA) [Mass fraction] 100 % [facility] Work Phone: [facility] 02-06-2023 10:28-0500 Systolic blood pressure 125 mm[Hg] [facility] Work Phone: [facility] 2022 11:15-0400 Diastolic blood pressure 76 mm[Hg] Xenia Haagen SCIENCE INSTRUCTOR.CHIEF TRANSFER AND PUMPHOUSE OPERATOR Work Phone: [facility] 2022 11:15-0400 Heart rate 59 /min Xenia Haagen SCIENCE INSTRUCTOR.CHIEF TRANSFER AND PUMPHOUSE OPERATOR Work Phone: [facility] 2022 11:15-0400 Respiratory rate 16 /min Xenia Haagen SCIENCE INSTRUCTOR.CHIEF TRANSFER AND PUMPHOUSE OPERATOR Work Phone: [facility] 2022 11:15-0400 SaO2% (BldA) [Mass fraction] 97 % Xenia Haagen SCIENCE INSTRUCTOR.CHIEF TRANSFER AND PUMPHOUSE OPERATOR Work Phone: [facility] 2022 11:15-0400 Systolic blood pressure 144 mm[Hg] Xenia Jaquez CHIEF TRANSFER AND PUMPHOUSE OPERATOR Work Phone: [facility] 06-22-2022 11:16-0400 Body weight 66.68 kg NA Pastrana PA-C Work Phone: [facility] 06-22-2022 11:16-0400 Diastolic blood pressure 76 mm[Hg] NA Pastrana PA-C Work Phone: [facility] 06-22-2022 11:16-0400 Heart rate 60 /min NA Pastrana PA-C Work Phone: [facility] 06-22-2022 11:16-0400 Respiratory rate 18 /min NA Pastrana PA-C Work Phone: [facility] 06-22-2022 11:16-0400 SaO2% (BldA) [Mass fraction] 97 % NA Pastrana PA-C Work Phone: [facility] 06-22-2022 11:16-0400 Systolic blood pressure 150 mm[Hg] NA Pastrana PA-C Work Phone: [facility] 06-07-2022 14:46-0500 Body temperature 97 [degF] NA Pastrana PA-C Work Phone: [facility] 06-07-2022 14:46-0500 Diastolic blood pressure 78 mm[Hg] NA Pastrana PA-C Work Phone: [facility] 06-07-2022 14:46-0500 Heart rate 62 /min NA Pastrana PA-C Work Phone: [facility] 06-07-2022 14:46-0500 Respiratory rate 20 /min NA Pastrana PA-C Work Phone: [facility] 06-07-2022 14:46-0500 SaO2% (BldA) [Mass fraction] 98 % NA Pastrana PA-C Work Phone: [facility] 06-07-2022 14:46-0500 Systolic blood pressure 157 mm[Hg] NA Pastrana PA-C Work Phone: [facility] 02-09-2022 11:33-0500 Body weight 90.72 kg Dennys Baez MD Work Phone: [facility] 02-09-2022 11:33-0500 Diastolic blood pressure 82 mm[Hg] Dennys Baez MD Work Phone: [facility] 02-09-2022 11:33-0500 Heart rate 75 /min Dennys Baez MD Work Phone: [facility] 02-09-2022 11:33-0500 SaO2% (BldA) [Mass fraction] 97 % Dennys Baez MD Work Phone: [facility] 02-09-2022 11:33-0500 Systolic blood pressure 172 mm[Hg] Dennys Baez MD Work Phone: [facility] 01-16-2022 12:34-0400 Diastolic blood pressure 88 mm[Hg] NA Pastrana PA-C Work Phone: [facility] 01-16-2022 12:34-0400 Systolic blood pressure 154 mm[Hg] NA Pastrana PA-C Work Phone: [facility] 01-16-2022 10:01-0400 Body weight 82.56 kg NA Pastrana PA-C Work Phone: [facility] 01-16-2022 10:01-0400 Heart rate 89 /min NA Pastrana PA-C Work Phone: [facility] 01-16-2022 10:01-0400 Respiratory rate 16 /min NA Pastrana PA-C Work Phone: [facility] 01-16-2022 10:01-0400 SaO2% (BldA) [Mass fraction] 98 % NA Pastrana PA-C Work Phone: [facility] 06-30-2021 14:08-0400 Body height 165.1 cm Anthony Cortes MD Work Phone: [facility] 06-30-2021 14:08-0400 Body weight 84.37 kg Anthony Cortes MD Work Phone: [facility] 06-30-2021 14:08-0400 Diastolic blood pressure 78 mm[Hg] Anthony Cortes MD Work Phone: [facility] 06-30-2021 14:08-0400 Heart rate 78 /min Anthony Cortes MD Work Phone: [facility] 06-30-2021 14:08-0400 SaO2% (BldA) [Mass fraction] 99 % Anthony Cortes MD Work Phone: [facility] 06-30-2021 14:08-0400 Systolic blood pressure 173 mm[Hg] Anthony Cortes MD Work Phone: [facility] Encounters Encounter Date Encounter Type Care Provider Facility Start: 05-01-2023 End: 05-01-2023 ambulatory DENNYS BAEZ Facility:[facility] Start: 04-10-2023 End: 04-10-2023 ambulatory GRANT JUÁREZ Facility:[facility] Start: 02-28-2023 Telephone encounter Dennys Baez MD Work Phone: Pulmonology [facility] Procedures Date Procedure Procedure Detail Performing Clinician Start: 02-27-2023 PFIZER-BIONTECH COVI D-19 VACCINE ( SEASON) AGE 12+ YR Dennys Baez MD Work Phone: Start: 02-01-2023 Computerized ophthal pavel imaging retina Jacquie Cox OD Work Phone: Start: 02-09-2022 Computerized ophthal pavel imaging retina Jacquie Cox OD Work Phone: Start: 01-16-2022 PFIZER-BIONTECH COVI D-19 BIVALENT BOOSTER VACCINE, AGE 12+ YR M Andrew Pastrana PA-C Work Phone: Start: 07-06-2020 Mammography Dennys Siddiqi MD Work Phone: Start: 10-09-2018 Adult depression scr eening assessment Dennys Baez MD Work Phone: Start: 12-24-2012 Colonoscopy Dennys Siddiqi MD Work Phone: Plan of Treatment Date Care Activity Detail Author Start: 02-28-2024 Annual PCP Team [employer]uttle [employer] Operator ehsan Disease Visit Annual PCP Team Chronic Disease Visit [facility] Start: 02-28-2024 BP Controlled (<130/80) BP Controlle d (<130/80) [facility] Start: 02-28-2024 Hepatitis B surface antibody level LDL Cholesterol [facility] Start: 02-28-2024 Pneumococcal vaccination Pneum ococcal Vaccine (2 - PCV) [facility] Immunizations Immunization Date Immunization Notes Care Provider Fa cility 03-01-2023 COVID-19 vaccine, ag e 12+ yr, season ([employer]) Dennys Baez MD Work Phone: [facility] 01-17-2023 influenza, injectabl e, quadrivalent, preservative free Dennys Baez MD Work Phone: [facility] 01-16-2022 COVID-19 booster vaccine, age 12+ yr, bivalent (PFIZER-BIONTECH) RODRIGUEZ Pastrana PA-C Work Phone: [facility] 01-07-2022 influenza, injectabl e, quadrivalent, preservative free Dennys Baez MD Work Phone: [facility] 01-07-2022 influenza, seasonal, injectable Dennys Baez MD Work Phone: [facility] 01-07-2022 influenza virus vacc ine, unspecified formulation Dennys Baez MD Work Phone: [facility] 02-15-2021 influenza, injectabl e, quadrivalent, preservative free Dennys Baez MD Work Phone: [facility] 02-15-2021 influenza, seasonal, injectable Dorita Pimentel RN [facility] 02-15-2021 influenza, seasonal, injectable, preservative free Dennys Baez MD Work Phone: [facility] 05-30-2020 influenza, injectabl e, quadrivalent, contains preservative Dennys Baez MD Work Phone: [facility] 12-16-2018 influenza, injectabl e, quadrivalent, contains preservative Dennys Baez MD Work Phone: [facility] 01-12-2009 pneumococcal polysaccharide vaccine, 23 valent Dennys Baez MD Work Phone: [facility] Work Phone: 01-12-2009 tetanus toxoid, redu eliseo diphtheria toxoid, and acellular pertussis vaccine, adsorbed Dennys Baez MD Work Phone: [facility] Work Phone: 12-01-1999 tetanus and diphther ia toxoids, adsorbed, preservative free, for adult use (2 Lf of tetanus toxoid and 2 Lf of diphtheria toxoid) Dennys Baez MD Work Phone: [facility] 02-02-1979 diphtheria and tetan us toxoids, adsorbed for pediatric use Dennys Baez MD Work Phone: [facility] Payers Date Payer Category Payer Medicaid [employer] [id number] 2020-Present [phone] [address] [place] [address] Medicaid [id number] 2020 Medicaid [id number] 2020 Medicaid [id number] 2020 Medicare [id number] 2020 Unknown [facility] ANTHEM MEDIBL[employer] O [id number] 2020-Present [phone] [address] [place] [address] [facility] [id number] 2008 Unknown [id number] Social History Date Type Detail Facility Start: 01-18-2012 End: 02-09-2022 Tobacco smoking status NHIS Never smoked tobacco [facility] Work Phone: Start: 06-19-2021 End: 02-27-2023 Alcohol intake Current non-drinker of alcohol (finding) [facility] Start: 1960 Sex Assigned At Not on file [facility] Start: 06-19-2021 End: 06-30-2021 Exposure to SARS-CoV-2 (event) Not sure [facility] Start: 01-18-2012 End: 02-09-2022 Tobacco use and exposure Smokeless tobacco non-user [facility] Start: 12-19-2021 End: 12-29-2021 Exposure to SARS-CoV-2 (event) Unable to assess [facility] Work Phone: Start: 10-28-2018 End: 2022 History of Social function [facility] Start: 10-28-2018 End: 2022 Tobacco use panel [facility] National Score (1-100), lower number is lower risk 48 [facility] Medical Equipment Procedure Code Equipment Code Equipment Origin al Text Equipment Identifier Dates Start: 09-23-2018 End: 11-08-2021 Goals Date Patient Goal Desired Activity /State Personal health goal Clinical Notes 11-01-2018 to 05-01-2023 Telephone Encounter - Tina Arellano - 03/01/2023 12:35 PM ESTTelephone Encounter - Vale Frias LPN - 03/01/2023 10:43 AM ESTTelephone Encounter - Dennys Baez MD - 03/01/2023 9:22 AM EST Note Date & Type Note Facility 05-01-2023 Note HNO ID: [id number] Author: DENNYS BAEZ MD Service: ? Author Type: Physician Type: Progress Notes Filed: 05/01/2023 17:06 Note Text: Patient presents with: Hypotension HPI: Patient presents today for office visit for low blood pressure readings during dialysis. Has been taking Midodrine 10 mg when this happens to raise BP. Did have influenza in March. Was ill around then. Dr. Terry stopped her Clonidine. Unsure if she's taking the Hydralazine or the HCTZ Denies chest pain and shortness of breath. No headaches or dizziness. Denies palpitations or syncopal episodes. Edema to lower extremities. Keeping legs wrapped. No longer seeing wound care. Skin lesions all healed. Suggested we get her back into podiatry. Confused about her weight. Weight today is up. She states Dialysis wants to her lose 10 lbs. Discussed the idea of dry weight. Saw Ophthalmology on 04/10/23. Needs cataract surgery. Does not want in [place]. Would like referral to [facility] to see someone there and have done here in [place]. DM: has seen Dr Carbajal. Sugars have been 180 is due to see her again. No hypoglycemic spells. See last ov: Very complicated patient. I have not seen her ins ome time. HTN: Monitors BP after dialysis Stable since increase of Midodrine to [address] Terry advised patient to stop other BP medications. Dr. Terry concerned with water retention. Currently taking HCTZ, Clonidine, Hydralazine, and Diltiazem. She has not stopped these yet. Denies chest pain Denies shortness of breath Denies headaches Denies dizziness. Will get dizzy if BP gets too low from Dialysis. Still with some edema to B/L feet, ankles, and legs. Has gotten better. Keeping legs wrapped. Home health helps her with this. No longer on Furosemide. Denies palpitations Denies syncope They had discussed transplant but that is on hold until she gets her medical issues under control. Seeing wound center for her lymphedema and venous stasis changes. HLD: Continues on Atorvastatin No myalgias GERD: Continues on Pantoprazole. No symptoms Needs follow up with Cardiology. [facility] DM: Checking sugars multiple times a day On dialysis has several low readings Seeing new retina specialist in April Denies numbness and tingling in feet. No pain. Seeing Dr. Carbajal for her sugars. She states her sugars are all over the place. Stubbed right foot 4th digit on her walker. Has open wound to toe. Injury happened on 02/23/23. Hit it with her rollator. No drainage. Sees wound care on 03/16. Seeing optho. MEDICATIONS: Current Outpatient Medications Medication Sig midodrine (PROAMATINE) 10 mg tablet Take 10 mg by mouth as needed (Only takes on Dialysis days to raise BP). sertraline (ZOLOFT) 50 mg tablet Take 1 tablet by mouth once daily. hydroCHLOROthiazide 12.5 mg capsule 12.5 mg by oral route. HYDROcodone-acetaminophen (NORCO) 5-325 mg per tablet atorvastatin (LIPITOR) 40 mg tablet Take 1 tablet by mouth daily at bedtime. pantoprazole DR (PROTONIX) 40 mg tablet Take 1 tablet by mouth daily before breakfast. Take on empty stomach, 1/2 hr before meal. insulin glargine 100 unit/mL (3 mL) Inject 10 Units subcutaneously daily at bedtime. flash glucose sensor (FREESTYLE KRISTA 14 DAY SENSOR) kit Use four times a day and as needed for blood sugar monitoring potassium chloride (K-TAB) 10 mEq tablet Take 10 mEq by mouth every morning. MULTIVITAMIN ORAL Take by mouth. ondansetron orally disintegrating (ZOFRAN ODT) 4 mg disintegrating tablet Take 1 tablet by mouth every 8 hours as needed. pregabalin (LYRICA) 75 mg capsule Take 1 capsule by mouth twice daily for 30 days. Omeprazole Magnesium 20 mg tablet Take 1 tablet by mouth. hydrALAZINE (APRESOLINE) 100 mg tablet Take 1 tablet by mouth. dilTIAZem CD (CARDIZEM CD) 240 mg 24 hr capsule Take 1 capsule by mouth once daily. (Patient taking differently: Take 180 mg by mouth once daily.) insulin lispro (HUMALOG KWIKPEN INSULIN) 100 unit/mL 8 units sq TID, and sliding scale. Maximum 50u per day ferrous sulfate 325 mg (65 mg iron) tablet Take 325 mg by mouth daily with breakfast. insulin needles, DISPOSABLE, (PEN NEEDLE) 31 gauge x 5/16 Use one needle per dose. Twice per day. blood sugar diagnostic (BLOOD GLUCOSE TEST) test strip Test blood sugar(s) 4 times daily. Dx: Other DM Code E13.65 Insulin: Yes Lancets lancets Test blood sugar(s) 4 times daily. Dx: Other DM Code E13.65 Insulin: Yes blood sugar diagnostic (FREESTYLE LITE STRIPS) test strip Test blood sugar(s) 4 times daily. Insulin: Yes (Patient taking differently: Test blood sugar(s) 4 times daily. Insulin: Yes) alcohol swabs (ALCOHOL PADS) Use to prior to checking blood sugar 4 times daily. polyethylene glycol 3350 (MIRALAX) 17 gram/dose powder For colonoscopy prep bisacodyl EC (DULCOLAX, BISACODYL,) 5 mg EC tablet Take 1 tablet by mouth as (more content not included)... [facility] 04-10-2023 Note HNO ID: [id number] Author: GRANT JUÁREZ MD Service: ? Author Type: Physician Type: Progress Notes Filed: 04/10/2023 15:44 Note Text: Previous patient of Dr. Dacosta Insulin Dependent Diabetes Mellitus Hemoglobin A1C (%) Date Value 02/27/2023 7.1 02/09/2022 9.6 01/29/2022 10.1 12/27/2020 9.5 - BP/BS/Lipid control and regular monitoring with exams reviewed RIGHT EYE - with quiescent PDR s/p PRP - s/p PRP 06/29/21 (579 spots) has lots of room for fill in, inferior limited by VH but no signs of active NV today on exam - s/p Avastin last 01/19/21 - OCT trace IRF - PLAN: observe LEFT EYE - with active PDR with HRC - s/p Avastin last 01/19/21 - OCT with trace IRF - has active NVD today - PLAN: PRP OS today, patient unable to tolerate full PRP in clinic today, offered to do in OR but patient preferred to come back to finish PRP - Risks, benefits, alternatives and complications reviewed, patient wishes to proceed, informed consent reviewed and signed F/U - 3 weeks for fiPRP OS Vitreous hemorrhage, both eyes - OD with persistent inferior VH - nearly resolved OS - observe Cataract, both eyes - visually significant - can proceed with CE/IOL I have confirmed and edited as necessary the relevant ophthalmic history, HPI, ROS, and the neuro exam findings as obtained by others. I have seen and examined this patient. I have discussed the case and the management of this patient's care with the Resident/Fellow, if applicable. I also have reviewed and agree with the assessment and plan as stated above and agree with all of its relevant components. [facility] 03-01-2023 Miscellaneous Notes Spoke with pt. She did not want to schedule at this time and said she would call back if she decides to get this test done PSS can you please help set up a carotid doppler. Set up carotid doppler Nothing in [facility] records showing any CTA or Carotid doppler. Ceci Richard Can we check in [facility] records and see if we can find the last time a carotid artery study, either cta or carotid doppler was done. documented in this encounter [facility] 02-28-2023 Miscellaneous Notes Patient informed and verbalized understanding. Ceci Richard Labs are good except for liver enzymes are up slightly. Recheck liver panel in two weeks. documented in this encounter [facility] 02-27-2023 Note HNO ID: [id number] Author: Kenia Hinton RT(R) Service: ? Author Type: Senior Accountant Type: Progress Notes Filed: 02/27/2023 5:24 PM Note Text: Radiology Service Progress Note PATIENT NAME: Layne Sprague DATE OF SERVICE: February 27, 2023 TIME: 5:24 PM PATIENT IDENTITY VERIFICATION COMPLETED USING TWO (2) IDENTIFIERS: Name and Date of confirmed by patient verbally. FALL SCREENING: Has the patient had 2 falls in the last year or 1 fall with injury or currently using an Ambulatory Assistive Device (Walker, Cane, Wheelchair, Crutches, etc.)? Yes, Patient High Risk for Falls What interventions were put in place to prevent falls during this visit? Offered Assistance with Transfers/Clothing, Instructed Patient to Remain Seated (Not on Exam Table) Until Exam, and Increased Observations by Caregivers PATIENT GENDER DATA: Female. status: : No status: NO. PATIENT RELEVANT IMPLANT DATA REVIEWED: Yes RADIOLOGY DEPARTMENT: General X-ray: Exam(s) Completed: Lower Extremity X-Ray(s): Foot, Left PERIPHERAL IV DATA: Not applicable SIGNED BY: RT Rosalind(R) February 27, 2023 5:24 PM [facility] 02-27-2023 Note HNO ID: [id number] Author: Dennys Baez MD Service: ? Author Type: Physician Type: Progress Notes Filed: 03/01/2023 9:23 AM Note Text: Patient presents with: Follow Up HPI: Patient presents today for office visit for follow up. Very complicated patient. I have not seen her ins ome time. HTN: Monitors BP after dialysis Stable since increase of Midodrine to [address] Terry advised patient to stop other BP medications. Dr. Terry concerned with water retention. Currently taking HCTZ, Clonidine, Hydralazine, and Diltiazem. She has not stopped these yet. Denies chest pain Denies shortness of breath Denies headaches Denies dizziness. Will get dizzy if BP gets too low from Dialysis. Still with some edema to B/L feet, ankles, and legs. Has gotten better. Keeping legs wrapped. Home health helps her with this. No longer on Furosemide. Denies palpitations Denies syncope They had discussed transplant but that is on hold until she gets her medical issues under control. Seeing wound center for her lymphedema and venous stasis changes. HLD: Continues on Atorvastatin No myalgias GERD: Continues on Pantoprazole. No symptoms Needs follow up with Cardiology. [facility] DM: Checking sugars multiple times a day On dialysis has several low readings Seeing new retina specialist in April Denies numbness and tingling in feet. No pain. Seeing Dr. Carbajal for her sugars. She states her sugars are all over the place. Stubbed right foot 4th digit on her walker. Has open wound to toe. Injury happened on 02/23/23. Hit it with her rollator. No drainage. Sees wound care on 03/16. Seeing optho. MEDICATIONS: Current Outpatient Medications Medication Sig sertraline (ZOLOFT) 50 mg tablet Take 1 tablet by mouth once daily. hydroCHLOROthiazide 12.5 mg capsule 12.5 mg by oral route. HYDROcodone-acetaminophen (NORCO) 5-325 mg per tablet cloNIDine HCl (CATAPRES) 0.3 mg tablet Take 1 tablet by mouth three times a day. atorvastatin (LIPITOR) 40 mg tablet Take 1 tablet by mouth daily at bedtime. pantoprazole DR (PROTONIX) 40 mg tablet Take 1 tablet by mouth daily before breakfast. Take on empty stomach, 1/2 hr before meal. insulin glargine 100 unit/mL (3 mL) Inject 10 Units subcutaneously daily at bedtime. flash glucose sensor ([employer]STYLE KRISTA 14 DAY SENSOR) kit Use four times a day and as needed for blood sugar monitoring potassium chloride (K-TAB) 10 mEq tablet Take 10 mEq by mouth every morning. MULTIVITAMIN ORAL Take by mouth. ondansetron orally disintegrating (ZOFRAN ODT) 4 mg disintegrating tablet Take 1 tablet by mouth every 8 hours as needed. pregabalin (LYRICA) 75 mg capsule Take 1 capsule by mouth twice daily for 30 days. Omeprazole Magnesium 20 mg tablet Take 1 tablet by mouth. hydrALAZINE (APRESOLINE) 100 mg tablet Take 1 tablet by mouth. dilTIAZem CD (CARDIZEM CD) 240 mg 24 hr capsule Take 1 capsule by mouth once daily. (Patient taking differently: Take 180 mg by mouth once daily.) midodrine (PROAMATINE) 2.5 mg tablet Take 1 tablet by mouth twice daily. Hold for systolic BP above 180 (Patient taking differently: Take 10 mg by mouth two times a day.) insulin lispro (HUMALOG KWIKPEN INSULIN) 100 unit/mL 8 units sq TID, and sliding scale. Maximum 50u per day ferrous sulfate 325 mg (65 mg iron) tablet Take 325 mg by mouth daily with breakfast. insulin needles, DISPOSABLE, (PEN NEEDLE) 31 gauge x 5/16 Use one needle per dose. Twice per day. blood sugar diagnostic (BLOOD GLUCOSE TEST) test strip Test blood sugar(s) 4 times daily. Dx: Other DM Code E13.65 Insulin: Yes Lancets lancets Test blood sugar(s) 4 times daily. Dx: Other DM Code E13.65 Insulin: Yes blood sugar diagnostic (FREESTYLE LITE STRIPS) test strip Test blood sugar(s) 4 times daily. Insulin: Yes (Patient taking differently: Test blood sugar(s) 4 times daily. Insulin: Yes) alcohol swabs (ALCOHOL PADS) Use to prior to checking blood sugar 4 times daily. polyethylene glycol 3350 (MIRALAX) 17 gram/dose powder For colonoscopy prep bisacodyl EC (DULCOLAX, BISACODYL,) 5 mg EC tablet Take 1 tablet by mouth as directed. Take two (2) each time, as explained on the instruction sheet provided. magnesium oxide (MAG-OX) 400 mg (241.3 mg magnesium) tablet Take 1 tablet by mouth twice daily. flash glucose scanning reader ([employer]STYLE KRISTA 14 DAY READER) 1 Each four times daily. traMADol (ULTRAM) 50 mg tablet Take 50 mg by mouth every 8 hours as needed. meclizine (ANTIVERT) 25 mg tab Take 1 tablet by mouth every 6 hours as needed (dizziness). Miscellaneous Medical Supply (BLOOD PRESSURE CUFF) misc Use as directed. Blood Pressure Monitor kit Use as directed COMPOUNDED PRESCRIPTION Quad cane blood sugar diagnostic (BLOOD GLUCOSE TEST) test strip Test blood sugar(s) 4 times daily. Dx: Type 2 DM - Uncontrolled E11.65 Insulin: Yes aspirin 81 mg chewabl (more content not included)... [facility] 02-27-2023 History of Presen t illness Narrative Patient presents with: Follow Up HPI: Patient presents today for office visit for follow up. Very complicated patient. I have not seen her ins ome time. HTN: Monitors BP after dialysis Stable since increase of Midodrine to [address] Terry advised patient to stop other BP medications. Dr. Terry concerned with water retention. Currently taking HCTZ, Clonidine, Hydralazine, and Diltiazem. She has not stopped these yet. Denies chest pain Denies shortness of breath Denies headaches Denies dizziness. Will get dizzy if BP gets too low from Dialysis. Still with some edema to B/L feet, ankles, and legs. Has gotten better. Keeping legs wrapped. Home health helps her with this. No longer on Furosemide. Denies palpitations Denies syncope They had discussed transplant but that is on hold until she gets her medical issues under control. Seeing wound center for her lymphedema and venous stasis changes. HLD: Continues on Atorvastatin No myalgias GERD: Continues on Pantoprazole. No symptoms Needs follow up with Cardiology. Hasn't been seen since [facility] left. DM: Checking sugars multiple times a day On dialysis has several low readings Seeing new retina specialist in April Denies numbness and tingling in feet. No pain. Seeing Dr. Carbajal for her sugars. She states her sugars are all over the place. Stubbed right foot 4th digit on her walker. Has open wound to toe. Injury happened on 02/23/23. Hit it with her rollator. No drainage. Sees wound care on 03/16. Seeing optho. MEDICATIONS: Current Outpatient Medications Medication Sig sertraline (ZOLOFT) 50 mg tablet Take 1 tablet by mouth once daily. hydroCHLOROthiazide 12.5 mg capsule 12.5 mg by oral route. HYDROcodone-acetaminophen (NORCO) 5-325 mg per tablet cloNIDine HCl (CATAPRES) 0.3 mg tablet Take 1 tablet by mouth three times a day. atorvastatin (LIPITOR) 40 mg tablet Take 1 tablet by mouth daily at bedtime. pantoprazole DR (PROTONIX) 40 mg tablet Take 1 tablet by mouth daily before breakfast. Take on empty stomach, 1/2 hr before meal. insulin glargine 100 unit/mL (3 mL) Inject 10 Units subcutaneously daily at bedtime. flash glucose sensor (FREESTYLE KRISTA 14 DAY SENSOR) kit Use four times a day and as needed for blood sugar monitoring potassium chloride (K-TAB) 10 mEq tablet Take 10 mEq by mouth every morning. MULTIVITAMIN ORAL Take by mouth. ondansetron orally disintegrating (ZOFRAN ODT) 4 mg disintegrating tablet Take 1 tablet by mouth every 8 hours as needed. pregabalin (LYRICA) 75 mg capsule Take 1 capsule by mouth twice daily for 30 days. Omeprazole Magnesium 20 mg tablet Take 1 tablet by mouth. hydrALAZINE (APRESOLINE) 100 mg tablet Take 1 tablet by mouth. dilTIAZem CD (CARDIZEM CD) 240 mg 24 hr capsule Take 1 capsule by mouth once daily. (Patient taking differently: Take 180 mg by mouth once daily.) midodrine (PROAMATINE) 2.5 mg tablet Take 1 tablet by mouth twice daily. Hold for systolic BP above 180 (Patient taking differently: Take 10 mg by mouth two times a day.) insulin lispro (HUMALOG KWIKPEN INSULIN) 100 unit/mL 8 units sq TID, and sliding scale. Maximum 50u per day ferrous sulfate 325 mg (65 mg iron) tablet Take 325 mg by mouth daily with breakfast. insulin needles, DISPOSABLE, (PEN NEEDLE) 31 gauge x 5/16 Use one needle per dose. Twice per day. blood sugar diagnostic (BLOOD GLUCOSE TEST) test strip Test blood sugar(s) 4 times daily. Dx: Other DM Code E13.65 Insulin: Yes Lancets lancets Test blood sugar(s) 4 times daily. Dx: Other DM Code E13.65 Insulin: Yes blood sugar diagnostic (FREESTYLE LITE STRIPS) test strip Test blood sugar(s) 4 times daily. Insulin: Yes (Patient taking differently: Test blood sugar(s) 4 times daily. Insulin: Yes) alcohol swabs (ALCOHOL PADS) Use to prior to checking blood sugar 4 times daily. polyethylene glycol 3350 (MIRALAX) 17 gram/dose powder For colonoscopy prep bisacodyl EC (DULCOLAX, BISACODYL,) 5 mg EC tablet Take 1 tablet by mouth as directed. Take two (2) each time, as explained on the instruction sheet provided. magnesium oxide (MAG-OX) 400 mg (241.3 mg magnesium) tablet Take 1 tablet by mouth twice daily. flash glucose scanning reader (FREESTYLE KRISTA 14 DAY READER) 1 Each four times daily. traMADol (ULTRAM) 50 mg tablet Take 50 mg by mouth every 8 hours as needed. meclizine (ANTIVERT) 25 mg tab Take 1 tablet by mouth every 6 hours as needed (dizziness). Miscellaneous Medical Supply (BLOOD PRESSURE CUFF) misc Use as directed. Blood Pressure Monitor kit Use as directed COMPOUNDED PRESCRIPTION Quad cane blood sugar diagnostic (BLOOD GLUCOSE TEST) test strip Test blood sugar(s) 4 times daily. Dx: Type 2 DM - Uncontrolled E11.65 Insulin: Yes aspirin 81 mg chewable tablet Take 1 tablet by mouth once daily. Lancets lancets Test blood sugar(s) 4 times daily. Dx: Type 2 DM - Uncontrolled E11.65 Insulin: Yes No current facility-administered medications for this visit. ALLERGIES: ALLERGIES Allergen Reactions Metformin GI Upset PAST MEDICAL HISTORY Diagnosis Date Concussion 09/2008 - from fall at work Diabetes (HCC) Gastroparesis due to DM (HCC) 09/17/2012 Genital herpes 10/28/2009 Migraine without aura 08/19/2008 Orthostasis Pelvic pain in female 07/29/2012 PMH - PAST MEDICAL HISTORY OF TMJ Vertigo of central origin 04/24/2012 PAST SURGICAL HISTORY Procedure Laterality Date COLONOSCOPY FLX DX W/COLLJ SPEC WHEN PFRMD 12/24/2012 Colonoscopy ESOPHAGOGASTRODUODENOSCOPY TRANSORAL DIAGNOSTIC 01/31/2012 EGD LAPS SURG CHOLECYSTECTOMY W/CHOLANGIOGRAPHY 02/01/2012 Normal IOC PAST SURGICAL HISTORY OF TMJ replacements x 2 PAST SURGICAL HISTORY OF Jaw surgery PAST SURGICAL HISTORY OF PAST SURGICAL HISTORY OF left hip pinned FAMILY HISTORY Problem Relation Age of Onset Hypertension Mother Lipids Mother Cancer Father Lymphoma, Leukemia Emphysema Father Cataract Father Diabetes Paternal Grandmother Breast Cancer Paternal Aunt Social History Tobacco Use Smoking status: Never Smokeless tobacco: Never Vaping Use Vaping Use: Never used Substance Use Topics Alcohol use: No Drug use: No Reviewed current medications, allergies, past medical history, surgical history, family history and social history today. REVIEW OF SYSTEMS All other reviewed and negative other than HPI. HEALTH MAINTENANCE: Reviewed health maintenance issues today and recommended the following in detail. Hepatitis C Screening Never done HIV Screening Never done Hepatitis A Vaccine(1 of 2 - Risk 2-dose series) thinks is being done at dialysis. Shingrix Vaccine(1 of 2) Never done Pneumococcal Vaccine(2 - PCV) due on 01/12/2010 Pap Testing due on 07/29/2017 HPV Testing due on 07/29/2017 DTaP,Tdap,Td Vaccine(4 - Td or Tdap) - she thinks was done in the last year. Mammogram Screening due on 07/06/2021 Depression Assessment Never done Diabetic Foot Exam due on 06/15/2022 LDL Cholesterol due on 06/19/2022 Hepatitis B Vaccine(1 of 3 - Risk 3-dose series) Never done RSV Vaccine(1 - 1-dose 60+ series) Never done Influenza Vaccine(1) was done Covid-19 Vaccine(4 - season) due on 11/30/2022 Colorectal Cancer Screening due on 12/24/2022 Hemoglobin/Hematocrit due on 02/09/2023 VITALS: BP 106/60 Pulse 67 Ht 165.1 cm (5' 5 ) Wt 66 kg (145 lb 9.6 oz) LMP 09/30/2008 SpO2 99% BMI 24.23 kg/m Last 4 Encounter Wt Readings: Date: Wt: 02/06/2023 66.1 kg (145 lb 11.2 oz) 02/06/2023 66.1 kg (145 lb 11.6 oz) 02/06/2023 66.1 kg (145 lb 11.6 oz) 06/22/2022 66.7 kg (147 lb) PHYSICAL EXAMINATION: General appearance: Well appearing, alert, in no acute distress, well-hydrated, well nourished. Skin: Skin color, texture, turgor normal, no suspicious rashes or lesions Lungs: Lungs clear to auscultation. No wheezing, rhonchi, rales Heart: RRR without murmur, gallop, or rubs. No ectopy Abdomen: Normal abdominal exam, Abdomen soft, non-tender. Bowel sounds normal. No masses, organomegaly Extremities: wraps in place. One plus edema. Her left foot has no redness or warmth. The fourth toe is a small abrasion on top. Some dried blood. Nail is intact. No signs of infection. ASSESSMENT/PLAN: 1. Orthostatic hypotension - ICD9: 458.0, ICD10: I95.1 (primary diagnosis) - stable 2. Hypertension - ICD9: 401.1, ICD10: I10 - per nephrology. Continue diaylsis. 3. Chronic congestive heart failure, unspecified heart failure type (HCC) - ICD9: 428.0, ICD10: I50.9 - overdue for cardiology follow up . Continue per nephro as well. - CONSULT TO CARDIOLOGY 4. Diastolic heart failure, unspecified HF chronicity (HCC) - ICD9: 428.30, ICD10: I50.30 - CONSULT TO CARDIOLOGY 5. Hyperlipidemia, unspecified hyperlipidemia type - ICD9: 272.4, ICD10: E78.5 -continue meds. - LIPID PANEL, NONFASTING - HEPATIC FUNCTION PNL 6. 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 She states she has not had any recent a1c or lipid done. - HGB A1C 7. 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 8. History of osteomyelitis - ICD9: V13.59, ICD10: Z87.39 - stable. 9. Occlusion of carotid artery, unspecified laterality - ICD9: 433.10, ICD10: I65.29 Consider follow up. 10. Lymphedema - ICD9: 457.1, ICD10: I89.0 - see wound care 11. Vertigo - ICD9: 780.4, ICD10: R42 - stable. 12. Autonomic neuropathy - ICD9: 337.9, ICD10: G90.9 - stable 13. Ataxia - ICD9: 781.3, ICD10: R27.0 - stable. 14. Chronic pain syndrome - ICD9: 338.4, ICD10: G89.4 -see pain management. 15. End-stage renal disease (HCC) - ICD9: 585.6, ICD10: N18.6 - per nephro 16. Need for vaccination - ICD9: V05.9, ICD10: Z23 - [employer] COVID-19 VACCINE (2022- [place]) AGE 12+ YR 17. Venous stasis ulcer, unspecified site, unspecified ulcer stage, unspecified whether varicose veins present (HCC) - ICD9: 454.0, ICD10: I83.009, L97.909 - per wound care. 18. Need for hepatitis C screening test - ICD9: V73.89, ICD10: Z11.59 - HEPATITIS C ANTIBODY IA WITH CONFIRMATION 19. Screening for HIV (human immunodeficiency virus) - ICD9: V73.89, ICD10: Z11.4 - HIV 1 2 COMBO(AG/AB),WITH REFLEX TO DIFFERENTIATION 20. Contusion of left foot, initial encounter - ICD9: 924.20, ICD10: S90.32XA - elevation prn. - XR FOOT GENERAL 3V AP/LAT/OBL LEFT Dennys Baez MD documented in this encounter [facility] documented as of this encounter (statuses as of 02/28/2023) [facility]11-29-2023 History of Past illness Narrative* Problem Noted Date Diagnosed Date Resolved Date Angioedema 02/27/2023 02/27/2023 02/27/2023 Anterior epistaxis 02/27/2023 02/27/2023 Diarrhea 02/27/2023 02/27/2023 02/27/2023 Fall 02/27/2023 02/27/2023 02/27/2023 Headache 02/27/2023 02/27/2023 02/27/2023 History of cardiovascular disorder 02/27/2023202202/27/2023 Hypoglycemia 02/27/2023 02/27/2023 02/27/2023 Impairment of balance 02/27/2023 02/27/20232022 Osteomyelitis 02/27/2023 02/27/2023 02/27/2023 Postoperative hemorrhage 02/27/2023 02/27/2023 Colitis 02/27/2023 02/27/2023 02/27/2023 Sepsis 02/27/2023 02/27/2023 02/27/2023 Adult failure to thrive 04/17/2022 02/27/2023 1111/2022 Dehydration 04/17/2022 02/27/2023 02/27/2023 Coffee ground emesis 03/31/2022 02/27/2023 023 Cellulitis of lower extremity 03/21/2022 02/27/2023 02/27/2023 Nausea and vomiting 03/17/2022 02/27/2023 02/28/20 23 Injury of kidney 03/06/2022 02/27/2023 02/27/2023 assisted current use of insulin 02/28/2022 02/28/20 23 02/27/2023 Bilateral pleural effusion 02/16/2022 02/27/2023 1 04/29/2022 Stage 3b chronic kidney disease 01/16/2022 02/27/2023 Abnormal blood chemistry level 01/10/2022 02/27/2023 02/27/2023 Type 2 diabetes mellitus with hyperglycemia 01/10/2022 02/27/2023 02/27/2023 Pain of foot 12/29/2021 02/27/2023 02/27/2023 Difficulty in walking, not e lsewhere classified 02/17/2021 02/27/2023 02/27/2023 Encounter for other specifie d surgical aftercare 02/17/2021 02/27/2023 02/27/2023 Muscle wasting and atrophy, not elsewhere classified, unspecified site 02/17/2021 02/27/2023 02/27/2023 Unspecified fracture of left femur, sequela 02/17/2021 02/27/2023 02/27/2023 Urinary tract infection, site not specified 02/17/2021 02/27/2023 02/27/2023 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 Patient has diabetes since the age of 53. Hypomagnesemia 10/30/2018 03/07/2021 Last Assessment & Plan: Assessment: Mg 1.6 PLAN: Continue MgOxide 400mg po BID Malnutrition of moderate degree 10/29/2018 02/27/2023 Physical debility 10/28/2018 02/27/2023 Last Assessment & Plan: Assessment: Generalized weakness - worsening Uses walker at home at baseline PLAN: PT/OT recommended acute rehab and patient was accepted [facility] - transfer was delayed by orthostasis Hypokalemia 10/28/2018 10/29/2018 Last Assessment & Plan: Assessment: K 3.5 Mg 1.5 Had po supplements in ED PLAN: KCl in IVFs Recheck K and Mg levels in AM Weight loss, unintentional 10/28/2018 0 10/31/2018 Last Assessment & Plan: Assessment: Possibly related to uncontrolled DM PLAN: Treatment as above Should have routine health care surveillance - Mammogram; Colonoscopy (colon polyp 11/2012) Gastroparesis due to DM 09/17/201210/01 Pelvic pain in female 07/29/20122018 Abdominal pain, other specified site 07/29/2012 10/29/2018 Vertigo of central origin 04/24/2012 Peripheral vertigo 04/24/2012201 9 Headache(784.0) 04/09/2012 10/29/2018 Biliary colic 01/24/2012 11/19/2012 Diabetes mellitus type II 10/15/2011 Genital herpes 10/28/2009 10/29/2018 Burn erythema of hand 01/12/20092018 Migraine without aura 08/19/20082018 Last Assessment & Plan: Assessment: Patient reports migraine headaches at least twice a week Neurology at [facility] recently discontinued Maxalt (triptans) due to history of CVA Neurology following PLAN: Hopefully headaches will improve with decreased BP Started on Diltiazem CD daily for HTN and may help with Migraine prophylaxis documented as of this encounter (statuses as of 03/01/2023) [facility]11-29-2023 History of Past illness Narrative* Problem Noted Date Diagnosed Date Resolved Date Angioedema 02/27/2023 02/27/2023 02/27/2023 Anterior epistaxis 02/27/2023 02/27/2023 Diarrhea 02/27/2023 02/27/2023 02/27/2023 Fall 02/27/2023 02/27/2023 02/27/2023 Headache 02/27/2023 02/27/2023 02/27/2023 History of cardiovascular disorder 02/27/2023202202/27/2023 Hypoglycemia 02/27/2023 02/27/2023 02/27/2023 Impairment of balance 02/27/2023 02/27/20232022 Osteomyelitis 02/27/2023 02/27/2023 02/27/2023 Postoperative hemorrhage 02/27/2023 02/27/2023 Colitis 02/27/2023 02/27/2023 02/27/2023 Sepsis 02/27/2023 02/27/2023 02/27/2023 Adult failure to thrive 04/17/2022 02/27/2023 11/2 11/2022 Dehydration 04/17/2022 02/27/2023 02/27/2023 Coffee ground emesis 03/31/2022 02/27/2023 023 Cellulitis of lower extremity 03/21/2022 02/27/2023 02/27/2023 Nausea and vomiting 03/17/2022 02/27/2023 02/28/20 23 Injury of kidney 03/06/2022 02/27/2023 02/27/2023 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 02/28/2022 02/28/20 23 02/27/2023 Bilateral pleural effusion 02/16/2022 02/27/2023 1 04/29/2022 Stage 3b chronic kidney disease 01/16/2022 02/27/2023 Abnormal blood chemistry level 01/10/2022 02/27/2023 02/27/2023 Type 2 diabetes mellitus with hyperglycemia 01/10/2022 02/27/2023 02/27/2023 Pain of foot 12/29/2021 02/27/2023 02/27/2023 Difficulty in walking, not e lsewhere classified 02/17/2021 02/27/2023 02/27/2023 Encounter for other specifie d surgical aftercare 02/17/2021 02/27/2023 02/27/2023 Muscle wasting and atrophy, not elsewhere classified, unspecified site 02/17/2021 02/27/2023 02/27/2023 Unspecified fracture of left femur, sequela 02/17/2021 02/27/2023 02/27/2023 Urinary tract infection, site not specified 02/17/2021 02/27/2023 02/27/2023 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 Patient has diabetes since the age of 53. Hypomagnesemia 10/30/2018 03/07/2021 Last Assessment & Plan: Assessment: Mg 1.6 PLAN: Continue MgOxide 400mg po BID Malnutrition of moderate degree 10/29/2018 02/27/2023 Physical debility 10/28/2018 02/27/2023 Last Assessment & Plan: Assessment: Generalized weakness - worsening Uses walker at home at baseline PLAN: PT/OT recommended acute rehab and patient was accepted [facility] - transfer was delayed by orthostasis Hypokalemia 10/28/2018 10/29/2018 Last Assessment & Plan: Assessment: K 3.5 Mg 1.5 Had po supplements in ED PLAN: KCl in IVFs Recheck K and Mg levels in AM Weight loss, unintentional 10/28/2018 0 10/31/2018 Last Assessment & Plan: Assessment: Possibly related to uncontrolled DM PLAN: Treatment as above Should have routine health care surveillance - Mammogram; Colonoscopy (colon polyp 11/2012) Gastroparesis due to DM 09/17/201210/01 Pelvic pain in female 07/29/20122018 Abdominal pain, other specified site 07/29/2012 10/29/2018 Vertigo of central origin 04/24/2012 Peripheral vertigo 04/24/2012 9 Headache(784.0) 04/09/2012 10/29/2018 Biliary colic 01/24/2012 11/19/2012 Diabetes mellitus type II 10/15/2011 Genital herpes 10/28/2009 10/29/2018 Burn erythema of hand 01/12/20092018 Migraine without aura 08/19/20082018 Last Assessment & Plan: Assessment: Patient reports migraine headaches at least twice a week Neurology at [facility] recently discontinued Maxalt (triptans) due to history of CVA Neurology following PLAN: Hopefully headaches will improve with decreased BP Started on Diltiazem CD daily for HTN and may help with Migraine prophylaxis documented as of this encounter (statuses as of 03/01/2023) [facility]11-27-2023 Miscellaneous Notes* Telephone Encounter - Evangelina Hui RN - 02/25/2023 3:17 PM EST Patient has been identified by name and date of : Yes, Provider Date Time Patient phones for refill(s): Requested Prescriptions Pending Prescriptions Disp Refills sertraline (ZOLOFT) 50 mg tablet 30 tablet 5 Sig: Take 1 tablet by mouth once daily. Date of last office visit in primary care: 02/08/2023 Date of next office visit in primary care: 02/27/2023 Last 2 Encounter Wt Readings: Date: Wt: 02/06/2023 66.1 kg (145 lb 11.2 oz) 02/06/2023 66.1 kg (145 lb 11.6 oz) Previous labs/tests for medication: Not applicable Please advise. Thank you. Evangelina Hui, RN. documented in this encounter[facility] Miscellaneous Notes* Telephone Encounter - Janessa Perez LPN - 02/13/2023 12:38 PM EST Maria A with [facility] calling to let you know she opened pt with [facility] today 02-13-23. Pt has areas of bad edema and blisters and they will use adaptic and pressure dressing withace wraps 2 times a week till pt is seen at the Wound Center. Only need to call back if there is a problem or concern. Janessa Perez LPN documented in this encounterMer[facility]11-[facility]-2023 NoteHNO ID: [id number] Author: Gabriela Sidhu APRN.CHIEF TRANSFER AND PUMPHOUSE OPERATOR Service: ? Author Type: Nurse Practitioner Type: Progress Notes Filed: 02/08/2023 1:46 PM Note Text: 02/08/2023 Patient presents with: Recheck: Lower extremity edema and wounds SUBJECTIVE: This is a 62 year old that is here today for Above Complaints.. Has wound to legs and cannot get into the [facility] at [facility] until March. Having diffiulty with transportation and goes to dialysis three days a week. Significant other ill. Has been keeping legs wrapped with gabriela wraps and putting neosporin on them PAST MEDICAL HISTORY Diagnosis Date Concussion 09/2008 - from fall at work Diabetes (HCC) Gastroparesis due to DM (HCC) 09/17/2012 Genital herpes 10/28/2009 Migraine without aura 08/19/2008 Orthostasis Pelvic pain in female 07/29/2012 PMH - PAST MEDICAL HISTORY OF TMJ Vertigo of central origin 04/24/2012 ALLERGIES Metformin MEDICATIONS Current Outpatient Medications Medication Sig hydroCHLOROthiazide 12.5 mg capsule 12.5 mg by oral route. HYDROcodone-acetaminophen (NORCO) 5-325 mg per tablet cloNIDine HCl (CATAPRES) 0.3 mg tablet Take 1 tablet by mouth three times a day. atorvastatin (LIPITOR) 40 mg tablet Take 1 tablet by mouth daily at bedtime. pantoprazole DR (PROTONIX) 40 mg tablet Take 1 tablet by mouth daily before breakfast. Take on empty stomach, 1/2 hr before meal. insulin glargine 100 unit/mL (3 mL) Inject 10 Units subcutaneously daily at bedtime. sertraline (ZOLOFT) 50 mg tablet Take 1 tablet by mouth once daily. flash glucose sensor (Jacket Micro DevicesSTYLE KRISTA 14 DAY SENSOR) kit Use four times a day and as needed for blood sugar monitoring potassium chloride (K-TAB) 10 mEq tablet Take 10 mEq by mouth every morning. MULTIVITAMIN ORAL Take by mouth. ondansetron orally disintegrating (ZOFRAN ODT) 4 mg disintegrating tablet Take 1 tablet by mouth every 8 hours as needed. pregabalin (LYRICA) 75 mg capsule Take 1 capsule by mouth twice daily for 30 days. furosemide (LASIX) 20 mg tablet Take 1 tablet by mouth. furosemide (LASIX) 40 mg tablet Take 1 tablet by mouth. Omeprazole Magnesium 20 mg tablet Take 1 tablet by mouth. hydrALAZINE (APRESOLINE) 100 mg tablet Take 1 tablet by mouth. dilTIAZem CD (CARDIZEM CD) 240 mg 24 hr capsule Take 1 capsule by mouth once daily. (Patient taking differently: Take 180 mg by mouth once daily.) midodrine (PROAMATINE) 2.5 mg tablet Take 1 tablet by mouth twice daily. Hold for systolic BP above 180 insulin lispro (HUMALOG KWIKPEN INSULIN) 100 unit/mL 8 units sq TID, and sliding scale. Maximum 50u per day ferrous sulfate 325 mg (65 mg iron) tablet Take 325 mg by mouth daily with breakfast. insulin needles, DISPOSABLE, (PEN NEEDLE) 31 gauge x 5/16 Use one needle per dose. Twice per day. blood sugar diagnostic (BLOOD GLUCOSE TEST) test strip Test blood sugar(s) 4 times daily. Dx: Other DM Code E13.65 Insulin: Yes Lancets lancets Test blood sugar(s) 4 times daily. Dx: Other DM Code E13.65 Insulin: Yes blood sugar diagnostic (FREESTYLE LITE STRIPS) test strip Test blood sugar(s) 4 times daily. Insulin: Yes (Patient taking differently: Test blood sugar(s) 4 times daily. Insulin: Yes) alcohol swabs (ALCOHOL PADS) Use to prior to checking blood sugar 4 times daily. polyethylene glycol 3350 (MIRALAX) 17 gram/dose powder For colonoscopy prep bisacodyl EC (DULCOLAX, BISACODYL,) 5 mg EC tablet Take 1 tablet by mouth as directed. Take two (2) each time, as explained on the instruction sheet provided. magnesium oxide (MAG-OX) 400 mg (241.3 mg magnesium) tablet Take 1 tablet by mouth twice daily. flash glucose scanning reader (FREESTYLE KRISTA 14 DAY READER) 1 Each four times daily. traMADol (ULTRAM) 50 mg tablet Take 50 mg by mouth every 8 hours as needed. meclizine (ANTIVERT) 25 mg tab Take 1 tablet by mouth every 6 hours as needed (dizziness). Miscellaneous Medical Supply (BLOOD PRESSURE CUFF) misc Use as directed. Blood Pressure Monitor kit Use as directed COMPOUNDED PRESCRIPTION Quad cane blood sugar diagnostic (BLOOD GLUCOSE TEST) test strip Test blood sugar(s) 4 times daily. Dx: Type 2 DM - Uncontrolled E11.65 Insulin: Yes aspirin 81 mg chewable tablet Take 1 tablet by mouth once daily. Lancets lancets Test blood sugar(s) 4 times daily. Dx: Type 2 DM - Uncontrolled E11.65 Insulin: Yes No current facility-administered medications for this visit. Medications and allergies reviewed by this provider. SOCIAL HISTORY Social History Tobacco Use Smoking status: Never Smokeless tobacco: Never Vaping Use Vaping Use: Never used Substance Use Topics Alcohol use: No Drug use: No REVIEW OF SYSTEMS All other reviewed and negative other than HPI. OBJECTIVE: BP 94/64 Pulse 70 Resp 16 LMP 09/30/2008 SpO2 97% . Vital signs reviewed by this provider. APPEARANCE Well appearing, alert, in no acute distress, well-hydrated, well no (more content not included)...[facility]11-09-2023 Miscellaneous Notes* Telephone Encounter - Vale Frias LPN - 02/07/2023 12:58 PM EST Call to patient and states that she doesn't not believe they are infected. Scheduled for tomorrow. Patient is going to see if she can get transport. * Telephone Encounter - Manjit Pollock MD - 02/07/2023 12:43 PM EST Advise patient that HHC orders can not be placed without a F2F visit. So will need seen in the office by PCP or triad. If looking infected should go to ER. * Telephone Encounter - Jannette Fernandez RN - 02/07/2023 10:33 AM EST Patient calls and states that she has wounds on legs and cannot get into wound center until 03/16. Patient's partner is laid up and unable to do it at this time. Patient asking if PCP can place an order for home health nurse to come in and do dressing changes? Please review and advise, Jannette Fernandez RN documented in this encounterMer[facility]11-[facility]-2023 NoteHNO ID: [id number] Author: Amy Barrios RN Service: ? Author Type: Registered Nurse Type: Progress Notes Filed: 02/06/2023 12:44 PM Note Text: Patients evaluation deferred by surgeonUniversity [facility]als [facility]11-08-2023 Note HNO ID: [id number] Author: Emily Rosales RD Service: ? Author Type: Registered Dietitian Type: Progress Notes Filed: 02/06/2023 12:10 PM Note Text: AMBULATORY PATIENT EDUCATION NOTE - Shared Nutrition Group (In Person) TOPIC:?Pre-kidney transplant nutrition evaluation for patients on dialysis Malnutrition Screening Significant unintentional weight loss? No Eating less than 75% of usual intake for more than 2 weeks? No Potential Signs of Inflammation: no identifiable sources READINESS TO LEARN: Cognitive Ability: Alert and oriented Motivation To Learn: Interested Family Support: Unable to assess - Family not present Instruction Provided To: Patient Patient Learns Best By: Multiple Methods Factors Affecting Learning: None Physical Limitations Affecting Learning: None LEARNING RESPONSE Patient/Family verbalizes understanding of pre-operative instructions and correct actions to take to follow pre-operative instructions. Anthropometrics: Height: Last 1 Encounter Ht Readings: Date: Ht: 02/06/2023 165.1 cm (5' 5 ) Weight: Last 1 Encounter Wt Readings: Date: Wt: 02/06/2023 66.1 kg (145 lb 11.2 oz) Body mass index is 24.25 kg/m?. Resting Metabolic Rate: 1236 Nutrition Assessment: Patient presents for nutrition clearance prior to kidney transplant. Optimizing nutritional adequacy will support recovery post-transplant. Nutrition Diagnosis: Behavioral-Environmental: Food and nutrition related knowledge deficit, related to, lack of prior exposure to information , as evidenced by verbalizes incomplete information RECOMMENDED MALNUTRITION DIAGNOSIS: MILD PROTEIN-CALORIE MALNUTRITION Educational materials provided: Healthy Lunch/Dinner Plate, High Protein Foods, Controlling your Potassium Level, Low-Phosphorus Diet GL, and Your Sodium Controlled Diet, Renal Diet Basics, and Body Mass Index and Body Fat None this visit Patient participated in a pre-transplant shared nutrition group class which reviewed the following nutrition principles: Eat 3 meals per day to ensure adequate nutrition. Combine a lean protein with a complex carbohydrate for improved energy levels. Use the healthy plate at mealtimes: 1/4 plate lean protein, 1/4 plate complex carbohydrates, 1/2 plate non starchy vegetables Limit sodium intake to 2000 mg per day. Start reading nutrition labels Choose frozen meals with less than 600 mg sodium per serving. Aim for less than 300 mg sodium per serving on other food products. Choose fresh and frozen fruits and vegetables. If you do choose canned foods, rinse and drain to reduce sodium Avoid adding extra salt to foods when cooking. Consider using salt-free seasonings for added flavor (like Mrs. Dash, garlic powder, onion powder, etc.) Limit restaurant foods. If eating out, consider getting sauces on the side, asking your gravity prospecting observer to have less salt added to your meal, and limit your portion. While on dialysis, your body needs more protein. Include protein each time you eat. Eggs, yogurt, nuts/nut butters, seeds, meat/fish/poultry, cheese, cottage cheese, and yogurt all contain protein. Consider using a protein shake if this is suggested by your dialysis dietitian (such as Rock or [facility]). Continue to limit sources of potassium and phosphorus as per your dialysis RD Stay active if able. Aim for 150 minutes of exercise per week. Nutrition Pre-Transplant Assessment Mild Protein Calorie Malnutrition; Frailty noted by transplant. Patient noted no appetite or weight changes on questionnaire that was filled out before class. Per recorded weights, patient weighed 200# in January 2022 before starting dialysis. Weight loss is clinically significant at 27% loss x 1 year. Uncertain if fluid shifts contributed to significant weight loss. Suspect higher degree of malnutrition. Patient is to follow-up with in patient nutrition services after surgery. Referred/Supervised by: Transplant/Murtaza Consult Billing Type: Ambulatory Group/30 min 1 unit SIGNATURE: Emily Rosales RD PATIENT NAME: Layne Sprague DATE: February 06, 2023 TIME: 11:56 AM PAGER:[facility]11-08-2023 NoteHNO ID: [id number] Author: Trent Jewell MD Service: ? Author Type: Physician Type: Progress Notes Filed: 02/06/2023 3:45 PM Note Text: [facility] [place] [facility] Transplant Evaluation CC: Consultation for Kidney transplant evaluation. Referred by: Aubree Terry ([facility]) [address] [address] Name of Dialysis Facility: [facility] 06-09-22 T,, I will communicate with the referring provider by letter and/or shared electronic medical record. HPI: 62 year old female presenting for kidney transplant evaluation related ESRD secondary to DM type 2 diagnosed at age 52. Patient denies renal biopsy. Last HGB A1C 9.6. Patient started HD 06/09/22 via L AV fistula. Patient presents very frail and in a WC, reports using Rolator at home. Patient also present with a wrap on her left foot to her ankle. And scabs on bilateral legs. Just on HD since May Bilteral lower extremities edema Seeing wound center - cont weeping and fresh wound and scabbing On midodrine HD In between HD BP in the 120 EF 45% Frail BP 125/58 Pulse 65 Temp 36.1 ?C (96.9 ?F) (Temporal) Ht 165.1 cm (5' 5 ) Wt 66.1 kg (145 lb 11.6 oz) LMP 09/30/2008 SpO2 100% BMI 24.25 kg/m? Other significant history includes: Proctitis Chronic ulcer of skin, Pressure ulcer, stage 4 of left heel Never smoker UTI: Recently was on ABX Kidney stones: No A/C: No Midodrine: yes BID on dialysis days No Pregnancies, denies miscarriages Abdominal surgeries: *Cholecystectomy Cardiovascular Disease: CHF, with preserved EF Peripheral Arterial Disease: (TIA non-embolic, CVA non-embolic, amputation, carotid artery stenosis, abnormal PVRs, claudication history, decreased pulses, etc.):No Stroke: NO Claudication: NO Carotid Artery Stenosis: NO Hypercoagulable (history of DVT/PE, miscarriages, prior use of anticoagulation, etc.):No Malignancy (including skin cancer): No DM: Yes Diagnosed at age 52, Type 2, and Secondary complications: retinopathy Prior transplant: No CKD: Yes: Cause of CKD: DM Hemodialysis, Start date: 05/2022 Living Donors: potentially Residual UO: WNL PAST MEDICAL HISTORY Diagnosis Date Concussion 09/2008 - from fall at work Diabetes (HCC) Gastroparesis due to DM (HCC) 09/17/2012 Genital herpes 10/28/2009 Migraine without aura 08/19/2008 Orthostasis Pelvic pain in female 07/29/2012 PMH - PAST MEDICAL HISTORY OF TMJ Vertigo of central origin 04/24/2012 PAST SURGICAL HISTORY Procedure Laterality Date COLONOSCOPY FLX DX W/COLLJ SPEC WHEN PFRMD 12/24/2012 Colonoscopy ESOPHAGOGASTRODUODENOSCOPY TRANSORAL DIAGNOSTIC 01/31/2012 EGD LAPS SURG CHOLECYSTECTOMY W/CHOLANGIOGRAPHY 02/01/2012 Normal IOC PAST SURGICAL HISTORY OF TMJ replacements x 2 PAST SURGICAL HISTORY OF Jaw surgery PAST SURGICAL HISTORY OF PAST SURGICAL HISTORY OF left hip pinned Current Outpatient Medications Medication Sig hydroCHLOROthiazide 12.5 mg capsule 12.5 mg by oral route. HYDROcodone-acetaminophen (NORCO) 5-325 mg per tablet cloNIDine HCl (CATAPRES) 0.3 mg tablet Take 1 tablet by mouth three times a day. atorvastatin (LIPITOR) 40 mg tablet Take 1 tablet by mouth daily at bedtime. pantoprazole DR (PROTONIX) 40 mg tablet Take 1 tablet by mouth daily before breakfast. Take on empty stomach, 1/2 hr before meal. insulin glargine 100 unit/mL (3 mL) Inject 10 Units subcutaneously daily at bedtime. sertraline (ZOLOFT) 50 mg tablet Take 1 tablet by mouth once daily. flash glucose sensor (FREESTYLE KRISTA 14 DAY SENSOR) kit Use four times a day and as needed for blood sugar monitoring potassium chloride (K-TAB) 10 mEq tablet Take 10 mEq by mouth every morning. MULTIVITAMIN ORAL Take by mouth. ondansetron orally disintegrating (ZOFRAN ODT) 4 mg disintegrating tablet Take 1 tablet by mouth every 8 hours as needed. pregabalin (LYRICA) 75 mg capsule Take 1 capsule by mouth twice daily for 30 days. furosemide (LASIX) 20 mg tablet Take 1 tablet by mouth. furosemide (LASIX) 40 mg tablet Take 1 tablet by mouth. Omeprazole Magnesium 20 mg tablet Take 1 tablet by mouth. hydrALAZINE (APRESOLINE) 100 mg tablet Take 1 tablet by mouth. dilTIAZem CD (CARDIZEM CD) 240 mg 24 hr capsule Take 1 capsule by mouth once daily. (Patient taking differently: Take 180 mg by mouth once daily.) midodrine (PROAMATINE) 2.5 mg tablet Take 1 tablet by mouth twice daily. Hold for systolic BP above 180 insulin lispro (HUMALOG KWIKPEN INSULIN) 100 unit/mL 8 units sq TID, and sliding scale. Maximum 50u per day ferrous sulfate 325 mg (65 mg iron) tablet Take 325 mg by mouth daily with breakfast. insulin needles, DISPOSABLE, (PEN NEEDLE) 31 gauge x 5/16 Use one needle per dose. Twice per day. blood sugar diagnostic (BLOOD GLUCOSE TEST) test strip Test blood sugar(s) 4 times daily. Dx: Other DM Code E13.65 Insulin: Yes Lancets thomas (more content not included)...[facility]11-08-2023 History of Present illness Narrative* Amy Barrios RN - 02/06/2023 12:43 PM EST Patients evaluation deferred by surgeon documented in this encounterMer[facility]11-08-2023 NoteHNO ID: [id number] Author: Yarely Gunderson LSW Service: ? Author Type: Type Copy Examiner Type: Progress Notes Filed: 02/06/2023 3:13 PM Note Text: PSYCHOSOCIAL EVALUATION FOR KIDNEY TRANSPLANT Patient was medically declined at this time for transplant - please see transplant Urology evaluation. REFERRAL: Layne Sprague was referred to Social Work for a psychosocial evaluation to establish if she would be a suitable candidate to receive a kidney transplant. Race/Gender: White, Female White [] Descent []Platter or []North (non-Black) []White: Other [x]White: Not Specified/Unknown [place] Citizen: Yes DIALYSIS START DATE: May 2022 The name of the dialysis unit is [facility]. This social work psychosocial evaluation was completed with Layne Sprague on February 06, 2023. She was alone. The patient explained her significant other, Karri, was working today and this is why he could not be at the appointments. The pt does use assistive devices for ambulation - she reports usually using a rollator, today presented in a wheelchair due to long distances. IDENTIFYING INFORMATION/LIVING SITUATION Layne Sprague [id number] [place] [address]. [address] home is a [address] [facility]. The patient used insurance transportation to get to the appointments today. Household members: Patients significant other (been together since 2007) There is 1 licensed drivers in the home and 1 working vehicles (patients significant other). The patient stopped driving in 2019 due to health issues. Are you aware that all post-transplant appointments will be at [facility]? Yes. How do you plan to come to the [facility] after transplant? The patient is unsure who would drive her to post transplant appointments. The patient uses insurance transportation to get to all appointments. Caregiver responsibilities: No Pets in the home: 1 dog. Pet precautions reviewed. COMPREHENSION OF MEDICAL SITUATION Layne Sprague reports that her kidney disease is due to diabetes . The patient states she was diagnosed with diabetes 10 years ago. She started seeing a rewards consultant a year ago. HEALTH Pregancies (females): No COMPLIANCE Missed doctor appointments: No issues reported. Missed/shortened/rescheduled dialysis appointments: No issues reported. (Uses insurance transportation) Knowledge of medications: The patient has no knowledge of her medications. Medication Compliance: She explains her significant other manages her medications completely by setting up a pill organizers and reminding her to take her medication. The patient states Karri is really strict with taking my medications Diabetes: Patient has a continuous blood sugar monitor. Have you ever stopped taking any medication because you lost your insurance you could not afford it? No Have you stopped taking medication because you felt you didn't need it or because of side-effects? No Transplant social work program coordinator encouraged the patient to work on becoming more familiar with her medications and her health care management. Patient verbalized understanding. Potential living donors: No SUBSTANCE USE/ABUSE Alcohol: The patient does not drink and never has. Tobacco: No Exposure to second hand smoke: No Cocaine, THC, Heroin, or Other Recreational Drug Use: No Over the Counter Medications: No Opioids/Controlled Substances: No LEGAL ENCOUNTERS History of any legal issues: No MENTAL HEALTH HISTORY Affect: Appropriate/Consistent Alert: Alert Orientation: person, place and time Appearance: Unremarkable/appropriate Cognitive Function: Cognition appears relatively intact Mood: Euthymic Timid Are you having thoughts that you would be better off , or of hurting yourself in some way? No Current mental health diagnoses / current feelings of anxiety or depression: Denies any current symptoms of anxiety or depression. Previous mental health diagnoses: The patient states she takes a psychiatric medications but is unsure what med. She believes she has taken it for a year. She does not know why she was prescribed the medication and feels no difference. The patient explained she has a family history of depression. Psychiatric medication: Yes, Zoloft (per chart). Who prescribes: PCP Counseling: No Psychiatric services: No History of suicide attempt(s) or ideation: No History of harming self: No History of harming others: No History of psychiatric hospitalization: No Transplant social work program coordinator asked the patient if she feels safe at home: Yes Is a referral to Transplant Psychiatry indicated for further evaluation or screening: No EDUCATION Highest Educational Level: Some college Reading/Comprehension Problems Then or Now: No HEALTH INSURANCE/FINANCIAL Medical Insurance: [facility] Medicare and [facility] Medicaid Payer of Insurance: Patient Pr (more content not included)...[facility]11-08-2023 Instructions* Patient Instructions* Emily Rosales RD - 02/06/2023 12:10 PM EST Patient participated in a pre-transplant shared nutrition group class which reviewed the following nutrition principles: Eat 3 meals per day to ensure adequate nutrition. Combine a lean protein with a complex carbohydrate for improved energy levels. Use the healthy plate at mealtimes: 1/4 plate lean protein, 1/4 plate complex carbohydrates, 1/2 plate non starchy vegetables Limit sodium intake to 2000 mg per day. Start reading nutrition labels Choose frozen meals with less than 600 mg sodium per serving. Aim for less than 300 mg sodium per serving on other food products. Choose fresh and frozen fruits and vegetables. If you do choose canned foods, rinse and drain to reduce sodium Avoid adding extra salt to foods when cooking. Consider using salt-free seasonings for added flavor(like Mrs. Dash, garlic powder, onion powder, etc.) Limit restaurant foods. If eating out, consider getting sauces on the side, asking your gravity prospecting observer to have less salt added to your meal, and limit your portion. While on dialysis, your body needs more protein. Include protein each time you eat. Eggs, yogurt, nuts/nut butters, seeds, meat/fish/poultry, cheese, cottage cheese, and yogurt all contain protein. Consider using a protein shake if this is suggested by your dialysis dietitian (such as [facility] or [facility]). Continue to limit sources of potassium and phosphorus as per your dialysis RD Stay active if able. Aim for 150 minutes of exercise per week. [facility] History of Present illness Narrative* Emily Rosales RD - 02/06/2023 11:56 AM EST AMBULATORY PATIENT EDUCATION NOTE - Shared Nutrition Group (In Person) TOPIC:?Pre-kidney transplant nutrition evaluation for patients on dialysis Malnutrition Screening Significant unintentional weight loss? No Eating less than 75% of usual intake for more than 2 weeks? No Potential Signs of Inflammation: no identifiable sources READINESS TO LEARN: Cognitive Ability: Alert and oriented Motivation To Learn: Interested Family Support: Unable to assess - Family not present Instruction Provided To: Patient Patient Learns Best By: Multiple Methods Factors Affecting Learning: None Physical Limitations Affecting Learning: None LEARNING RESPONSE Patient/Family verbalizes understanding of pre-operative instructions and correct actions to take to follow pre-operative instructions. Anthropometrics: Height: Last 1 Encounter Ht Readings: Date: Ht: 02/06/2023 165.1 cm (5' 5 ) Weight: Last 1 Encounter Wt Readings: Date: Wt: 02/06/2023 66.1 kg (145 lb 11.2 oz) Body mass index is 24.25 kg/m . Resting Metabolic Rate: 1236 Nutrition Assessment: Patient presents for nutrition clearance prior to kidney transplant. Optimizing nutritional adequacy will support recovery post-transplant. Nutrition Diagnosis: Behavioral-Environmental: Food and nutrition related knowledge deficit, related to, lack of prior exposure to information , as evidenced by verbalizes incomplete information RECOMMENDED MALNUTRITION DIAGNOSIS: MILD PROTEIN-CALORIE MALNUTRITION Educational materials provided: Healthy Lunch/Dinner Plate, High Protein Foods, Controlling your Potassium Level, Low-Phosphorus Diet GL, and Your Sodium Controlled Diet, Renal Diet Basics, and Body Mass Index and Body Fat None this visit Patient participated in a pre-transplant shared nutrition group class which reviewed the following nutrition principles: Eat 3 meals per day to ensure adequate nutrition. Combine a lean protein with a complex carbohydrate for improved energy levels. Use the healthy plate at mealtimes: 1/4 plate lean protein, 1/4 plate complex carbohydrates, 1/2 plate non starchy vegetables Limit sodium intake to 2000 mg per day. Start reading nutrition labels Choose frozen meals with less than 600 mg sodium per serving. Aim for less than 300 mg sodium per serving on other food products. Choose fresh and frozen fruits and vegetables. If you do choose canned foods, rinse and drain to reduce sodium Avoid adding extra salt to foods when cooking. Consider using salt-free seasonings for added flavor(like Mrs. Dash, garlic powder, onion powder, etc.) Limit restaurant foods. If eating out, consider getting sauces on the side, asking your gravity prospecting observer to have less salt added to your meal, and limit your portion. While on dialysis, your body needs more protein. Include protein each time you eat. Eggs, yogurt, nuts/nut butters, seeds, meat/fish/poultry, cheese, cottage cheese, and yogurt all contain protein. Consider using a protein shake if this is suggested by your dialysis dietitian (such as [facility] or [employer]). Continue to limit sources of potassium and phosphorus as per your dialysis RD Stay active if able. Aim for 150 minutes of exercise per week. Nutrition Pre-Transplant Assessment Mild Protein Calorie Malnutrition; Frailty noted by transplant.Patient noted no appetite or weight changes on questionnaire that was filled out before class. Per recorded weights, patient weighed 200# in January 2022 before starting dialysis. Weight loss is clinically significant at 27% loss x 1 year. Uncertain if fluid shifts contributed to significant weight loss. Suspect higher degree of malnutrition. Patient is to follow-up with in patient nutrition services after surgery. Referred/Supervised by: Transplant/Murtaza Consult Billing Type: Ambulatory Group/30 min 1 unit SIGNATURE: Emily Rosales RD PATIENT NAME: Layne Sprague DATE: February 06, 2023 TIME: 11:56 AM PAGER: documented in this [facility] History of Present illness Narrative* Trent Jewell MD - 02/06/2023 11:55 AM EST Images from the original note were not included. [facility] [place] [facility] Transplant Evaluation CC: Consultation for Kidney transplant evaluation. Referred by: Aubree Trery (Janie) [address] [address] Name of Dialysis Facility: [facility] 06-09-22 T,Th,Sa I will communicate with the referring provider by letter and/or shared electronic medical record. HPI: 62 year old female presenting for kidney transplant evaluation related ESRD secondary to DM type 2 diagnosed at age 52. Patient denies renal biopsy. Last HGB A1C 9.6. Patient started HD 06/09/22 via L AV fistula. Patient presents very frail and in a WC, reports using Rolator at home. Patient also present with a wrap on her left foot to her ankle. And scabs on bilateral legs. Just on HD since May Bilteral lower extremities edema Seeing wound center - cont weeping and fresh wound and scabbing On midodrine HD In between HD BP in the 120 EF 45% Frail BP 125/58 Pulse 65 Temp 36.1 C (96.9 F) (Temporal) Ht 165.1 cm (5' 5 ) Wt 66.1 kg (145 lb 11.6 oz) LMP 09/30/2008 SpO2 100% BMI 24.25 kg/m Other significant history includes: Proctitis Chronic ulcer of skin, Pressure ulcer, stage 4 of left heel Never smoker UTI: Recently was on ABX Kidney stones: No A/C: No Midodrine: yes BID on dialysis days No Pregnancies, denies miscarriages Abdominal surgeries: *Cholecystectomy Cardiovascular Disease: CHF, with preserved EF Peripheral Arterial Disease: (TIA non-embolic, CVA non-embolic, amputation, carotid artery stenosis, abnormal PVRs, claudication history, decreased pulses, etc.):No Stroke: NO Claudication: NO Carotid Artery Stenosis: NO Hypercoagulable (history of DVT/PE, miscarriages, prior use of anticoagulation, etc.):No Malignancy (including skin cancer): No DM: Yes Diagnosed at age 52, Type 2, and Secondary complications: retinopathy Prior transplant: No CKD: Yes: Cause of CKD: DM Hemodialysis, Start date: 05/2022 Living Donors: potentially Residual UO: WNL PAST MEDICAL HISTORY Diagnosis Date Concussion 09/2008 - from fall at work Diabetes (HCC) Gastroparesis due to DM (HCC) 09/17/2012 Genital herpes 10/28/2009 Migraine without aura 08/19/2008 Orthostasis Pelvic pain in female 07/29/2012 PMH - PAST MEDICAL HISTORY OF TMJ Vertigo of central origin 04/24/2012 PAST SURGICAL HISTORY Procedure Laterality Date COLONOSCOPY FLX DX W/COLLJ SPEC WHEN PFRMD 12/24/2012 Colonoscopy ESOPHAGOGASTRODUODENOSCOPY TRANSORAL DIAGNOSTIC 01/31/2012 EGD LAPS SURG CHOLECYSTECTOMY W/CHOLANGIOGRAPHY 02/01/2012 Normal IOC PAST SURGICAL HISTORY OF TMJ replacements x 2 PAST SURGICAL HISTORY OF Jaw surgery PAST SURGICAL HISTORY OF PAST SURGICAL HISTORY OF left hip pinned Current Outpatient Medications Medication Sig hydroCHLOROthiazide 12.5 mg capsule 12.5 mg by oral route. HYDROcodone-acetaminophen (NORCO) 5-325 mg per tablet cloNIDine HCl (CATAPRES) 0.3 mg tablet Take 1 tablet by mouth three times a day. atorvastatin (LIPITOR) 40 mg tablet Take 1 tablet by mouth daily at bedtime. pantoprazole DR (PROTONIX) 40 mg tablet Take 1 tablet by mouth daily before breakfast. Take on empty stomach, 1/2 hr before meal. insulin glargine 100 unit/mL (3 mL) Inject 10 Units subcutaneously daily at bedtime. sertraline (ZOLOFT) 50 mg tablet Take 1 tablet by mouth once daily. flash glucose sensor (FREESTYLE KRISTA 14 DAY SENSOR) kit Use four times a day and as needed for blood sugar monitoring potassium chloride (K-TAB) 10 mEq tablet Take 10 mEq by mouth every morning. MULTIVITAMIN ORAL Take by mouth. ondansetron orally disintegrating (ZOFRAN ODT) 4 mg disintegrating tablet Take 1 tablet by mouth every 8 hours as needed. pregabalin (LYRICA) 75 mg capsule Take 1 capsule by mouth twice daily for 30 days. furosemide (LASIX) 20 mg tablet Take 1 tablet by mouth. furosemide (LASIX) 40 mg tablet Take 1 tablet by mouth. Omeprazole Magnesium 20 mg tablet Take 1 tablet by mouth. hydrALAZINE (APRESOLINE) 100 mg tablet Take 1 tablet by mouth. dilTIAZem CD (CARDIZEM CD) 240 mg 24 hr capsule Take 1 capsule by mouth once daily. (Patient takingdifferently: Take 180 mg by mouth once daily.) midodrine (PROAMATINE) 2.5 mg tablet Take 1 tablet by mouth twice daily. Hold for systolic BP [id number] insulin lispro (HUMALOG KWIKPEN INSULIN) 100 unit/mL 8 units sq TID, and sliding scale. Maximum 50uper day ferrous sulfate 325 mg (65 mg iron) tablet Take 325 mg by mouth daily with breakfast. insulin needles, DISPOSABLE, (PEN NEEDLE) 31 gauge x 5/16 Use one needle per dose. Twice per day. blood sugar diagnostic (BLOOD GLUCOSE TEST) test strip Test blood sugar(s) 4 times daily. Dx: OtherDM Code E13.65 Insulin: Yes Lancets lancets Test blood sugar(s) 4 times daily. Dx: Other DM Code E13.65 Insulin: Yes blood sugar diagnostic (FREESTYLE LITE STRIPS) test strip Test blood sugar(s) 4 times daily. Insulin: Yes (Patient taking differently: Test blood sugar(s) 4 times daily. Insulin: Yes) alcohol swabs (ALCOHOL PADS) Use to prior to checking blood sugar 4 times daily. polyethylene glycol 3350 (MIRALAX) 17 gram/dose powder For colonoscopy prep bisacodyl EC (DULCOLAX, BISACODYL,) 5 mg EC tablet Take 1 tablet by mouth as directed. Take two (2)each time, as explained on the instruction sheet provided. magnesium oxide (MAG-OX) 400 mg (241.3 mg magnesium) tablet Take 1 tablet by mouth twice daily. flash glucose scanning reader ([employer] DevicesSTYLE KRISTA 14 DAY READER) 1 Each four times daily. traMADol (ULTRAM) 50 mg tablet Take 50 mg by mouth every 8 hours as needed. meclizine (ANTIVERT) 25 mg tab Take 1 tablet by mouth every 6 hours as needed (dizziness). Miscellaneous Medical Supply (BLOOD PRESSURE CUFF) misc Use as directed. Blood Pressure Monitor kit Use as directed COMPOUNDED PRESCRIPTION Quad cane blood sugar diagnostic (BLOOD GLUCOSE TEST) test strip Test blood sugar(s) 4 times daily. Dx: Type 2 DM - Uncontrolled E11.65 Insulin: Yes aspirin 81 mg chewable tablet Take 1 tablet by mouth once daily. Lancets lancets Test blood sugar(s) 4 times daily. Dx: Type 2 DM - Uncontrolled E11.65 Insulin: Yes No current facility-administered medications for this visit. FAMILY HISTORY Problem Relation Age of Onset Hypertension Mother Lipids Mother Cancer Father Lymphoma, Leukemia Emphysema Father Cataract Father Diabetes Paternal Grandmother Breast Cancer Paternal Aunt Family Status Relation Name Status Mo Alive Fa Bro Alive Bro Alive MGMo MGFa PGMo PGFa PAunt (Not Specified) Social History Tobacco Use Smoking status: Never Smokeless tobacco: Never Vaping Use Vaping Use: Never used Substance Use Topics Alcohol use: No Drug use: No Pre-transplant testing: Cardiac: Echocardiogram: Completed on 02/14/22, results NM stress: Completed on 04/22/19, results CXR: needs updated PAP Test: needs updated Mammogram: needs updated Colonoscopy: will obtain form [facility] Sensitizations: Prior transplant: No Blood transfusions: Yes : No Rabbit: No Immunizations: HBV series: Receiving series at dialysis Pneumovax: Not received, patient encouraged to obtain Influenza vaccine: Received, date 01/07/22 Covid vaccine: Received, date 01/16/22, 09/07/20, 08/10/20 Amy PAGAN, RN BP 125/58 Pulse 65 Temp 36.1 C (96.9 F) (Temporal) Ht 165.1 cm (5' 5 ) Wt 66.1 kg (145 lb 11.6 oz) LMP 09/30/2008 SpO2 100% BMI 24.25 kg/m SEEN BY REVIEW OF SYSTEMS GENERAL: + weight loss, (-)malaise or fevers HEENT: Negative for frequent or significant headaches, No changes in hearing or vision, no nose bleeds or other nasal problems NECK: Negative for lumps, goiter, pain and significant neck swelling RESPIRATORY: Negative for cough, hemoptysis, wheezing, COPD, dyspnea or shortness of breath CARDIOVASCULAR: Negative for chest pain, leg swelling, GI: No nausea, vomiting, or diarrhea : No history of dysuria, frequency or incontinence SKIN: Negative for lesions, rash, and itching HEMATOLOGY/LYMPHOLOGY: Negative for prolonged bleeding, NEURO: No history of headaches, PHYSICAL EXAMINATION: General appearance: frail, wheel chair bound, alert, in no acute distress, Skin: Skin color, texture, turgor normal, no suspicious rashes or lesions Head: Normocephalic, no masses, lesions, tenderness or abnormalities Eyes: Anicteric sclera. Pupils are equally round Neck: Supple, no adenopathy Lungs: Lungs clear to auscultation. No wheezing, rhonchi, rales. Heart: RRR without murmur, Abdomen:Abdomen soft, non-tender. Bowel sounds normal. No masses, organomegaly Extremities: left leg wrapped up, right, scab and fresh wound, ++ edema, Peripheral pulses: Normal Neuro: Gait normal. A: ESRD 2 to DM Bilateral edema Ulcers lower extremities Frailty Plan: Mr. Sprague is not a candidate for kidney transplantation as of the moment (need ulcer to be healed) pending completion of work up and meeting the rest of the team. Advantages and disadvantages oftransplantation versus dialysis were reviewed. Discussed the operative procedure and potential complications. I addressed issues of post-operative recovery and follow up. Few things I have discussed with her a. At this point in time, she needs her ulcers and wound taken cared of,she is on HD therefore she is not losing time Other issues is she is on midodrine and low BP, which can explained her bilateral lower edema Once this is address we can see her again. b. the importance of compliance c. the frequent travel in the early post op period for monitoring d. We also discussed the transplant procedure and the need for urinary catheter and ureteric stent.I overviewed the issues of delayed graft function, the possible need for dialysis, and the possibleneed for re-operation during the early postoperative period. I also informed them of the occasionalneed for blood transfusion and they expressed their understanding and willingness to accept one if the need arises. I mentioned other complications including thromboembolic events, cardiac events, and infection. Lastly I discussed the need for immunosuppressive therapy and the risk associated with this treatment. they would like to proceed Will close this evaluation, she understand and agreed with the plan She will refer herself back once wound addressed I spent a total of 60 minutes on the date of the service which included preparing to see the patient, [id number] patient care, completing clinical documentation, obtaining and/or reviewing separately obtained history, performing a medically appropriate examination, counseling and educating the pat ient/family/caregiver, ordering medications, tests, or procedures, communicating with other HCPs (not separately reported), independently interpreting results (not separately reported), communicatingresults to the patient/family/caregiver, and care coordination (not separately reported). Trent Jewell MD documented in this [facility] NoteEducation (DTBAMN) LAYNE SPRAGUE ([id number]) 1960 F Date Time Provider Department 02/06/23 9:45 AM EMILY ROSALES DTBAMN Reason for Visit: Patient Education [91] Primary Visit Diagnosis:Awaiting organ transplant [Z76.82] Other Visit Diagnosis:Dietary counseling and surveillance [Z71.3] During your visit today, we recorded the following information about you: Weight Height 66.1 kg 1.651 m Allergies As of Date: 02/06/2023 Noted Allergy Reaction METFORMIN 10/09/2018 8 - GI Upset Date Reviewed: 02/01/2023 Reviewed by: Jacquie Cox OD - Fully Assessed Prescriptions as of 02/06/2023 - hydroCHLOROthiazide 12.5 mg capsule 12.5 mg by oral route. - HYDROcodone-acetaminophen (NORCO) 5-325 mg per tablet - cloNIDine HCl (CATAPRES) 0.3 mg tablet Take 1 tablet by mouth three times a day. - atorvastatin (LIPITOR) 40 mg tablet Take 1 tablet by mouth daily at bedtime. - pantoprazole DR (PROTONIX) 40 mg tablet Take 1 tablet by mouth daily before breakfast. Take on empty stomach, 1/2 hr before meal. - insulin glargine 100 unit/mL (3 mL) Inject 10 Units subcutaneously daily at bedtime. - sertraline (ZOLOFT) 50 mg tablet Take 1 tablet by mouth once daily. - flash glucose sensor (FREESTYLE KRISTA 14 DAY SENSOR) kit Use four times a day and as needed for blood sugar monitoring - potassium chloride (K-TAB) 10 mEq tablet Take 10 mEq by mouth every morning. - MULTIVITAMIN ORAL Take by mouth. - ondansetron orally disintegrating (ZOFRAN ODT) 4 mg disintegrating tablet Take 1 tablet by mouth every 8 hours as needed. - pregabalin (LYRICA) 75 mg capsule Take 1 capsule by mouth twice daily for 30 days. - furosemide (LASIX) 20 mg tablet Take 1 tablet by mouth. - furosemide (LASIX) 40 mg tablet Take 1 tablet by mouth. - Omeprazole Magnesium 20 mg tablet Take 1 tablet by mouth. - hydrALAZINE (APRESOLINE) 100 mg tablet Take 1 tablet by mouth. - dilTIAZem CD (CARDIZEM CD) 240 mg 24 hr capsule Take 1 capsule by mouth once daily. - midodrine (PROAMATINE) 2.5 mg tablet Take 1 tablet by mouth twice daily. Hold for systolic BP above 180 - insulin lispro (HUMALOG KWIKPEN INSULIN) 100 unit/mL 8 units sq TID, and sliding scale. Maximum 50u per day - ferrous sulfate 325 mg (65 mg iron) tablet Take 325 mg by mouth daily with breakfast. - insulin needles, DISPOSABLE, (PEN NEEDLE) 31 gauge x 516 Use one needle per dose. Twice per day. - blood sugar diagnostic (BLOOD GLUCOSE TEST) test strip Test blood sugar(s) 4 times daily. Dx: Other DM Code E13.65 Insulin: Yes - Lancets lancets Test blood sugar(s) 4 times daily. Dx: Other DM Code E13.65 Insulin: Yes - blood sugar diagnostic (FREESTYLE LITE STRIPS) test strip Test blood sugar(s) 4 times daily. Insulin: Yes - alcohol swabs (ALCOHOL PADS) Use to prior to checking blood sugar 4 times daily. - polyethylene glycol 3350 (MIRALAX) 17 gram/dose powder For colonoscopy prep - bisacodyl EC (DULCOLAX, BISACODYL,) 5 mg EC tablet Take 1 tablet by mouth as directed. Take two (2) each time, as explained on the instruction sheet provided. - magnesium oxide (MAG-OX) 400 mg (241.3 mg magnesium) tablet Take 1 tablet by mouth twice daily. - flash glucose scanning reader (FREESTYLE KRISTA 14 DAY READER) 1 Each four times daily. - traMADol (ULTRAM) 50 mg tablet Take 50 mg by mouth every 8 hours as needed. - meclizine (ANTIVERT) 25 mg tab Take 1 tablet by mouth every 6 hours as needed (dizziness). - Miscellaneous Medical Supply (BLOOD PRESSURE CUFF) misc Use as directed. - Blood Pressure Monitor kit Use as directed - COMPOUNDED PRESCRIPTION Quad cane - blood sugar diagnostic (BLOOD GLUCOSE TEST) test strip Test blood sugar(s) 4 times daily. Dx: Type 2 DM - Uncontrolled E11.65 Insulin: Yes - aspirin 81 mg chewable tablet Take 1 tablet by mouth once daily. - Lancets lancets Test blood sugar(s) 4 times daily. Dx: Type 2 DM - Uncontrolled E11.65 Insulin: Yes Meds Comments as of 06/19/2022: June 19, 2022: Patient reports started Dialysis early May . Jannette Khan, RN Disposition: Return if symptoms worsen or fail to improve. Follow-up and Disposition History for Encounter Date Provider Department Center 02/06/2023 [id number], LARA DTBAMN [facility] Encounter Status:Closed by EMILY ROSALES on 02/06/23University [facility] 02-06-2023 History of Present illness Narrative* Yarely Gunderson LSW - 02/06/2023 10:40 AM EST PSYCHOSOCIAL EVALUATION FOR KIDNEY TRANSPLANT Patient was medically declined at this time for transplant - please see transplant Urology evaluation. REFERRAL: Layne Sprague was referred to Social Work for a psychosocial evaluation to establish if she would be a suitable candidate to receive a kidney transplant. Race/Gender: White, Female White [] Descent []Platter or []North (non-Black) []White: Other [x]White: Not Specified/Unknown [place] Citizen: Yes DIALYSIS START DATE: May 2022 The name of the dialysis unit [facility] [place]. This social work psychosocial evaluation was completed with Layne Sprague on February 06, 2023. She was alone. The patient explained her significant other, Karri, was working today and this is why he could not be at the appointments. The pt does use assistive devices for ambulation - she reports usually using a rollator, today presented in a wheelchair due to long distances. IDENTIFYING INFORMATION/LIVING SITUATION Layne Sprague [id number] [address] [place] [address]. The home is a [address] [facility]. The patient used insurance transportation to get to the appointments today. Household members: Patients significant other (been together since 2007) There is 1 licensed drivers in the home and 1 working vehicles (patients significant other). The patient stopped driving in 2019 due to health issues. Are you aware that all post-transplant appointments will be at [facility]? Yes. How do you plan to come to the [facility] [place] after transplant? The patient is unsure who would drive her to post transplant appointments. The patient uses insurance transportation to get to all appointments. Caregiver responsibilities: No Pets in the home: 1 dog. Pet precautions reviewed. COMPREHENSION OF MEDICAL SITUATION Layne Sprague reports that her kidney disease is due to diabetes . The patient states she was diagnosed with diabetes 10 years ago. She started seeing a rewards consultant a year ago. HEALTH Pregancies (females): No COMPLIANCE Missed doctor appointments: No issues reported. Missed/shortened/rescheduled dialysis appointments: No issues reported. (Uses insurance transportation) Knowledge of medications: The patient has no knowledge of her medications. Medication Compliance: She explains her significant other manages her medications completely by setting up a pill organizers and reminding her to take her medication. The patient states Karri is really strict with taking my medications Diabetes: Patient has a continuous blood sugar monitor. Have you ever stopped taking any medication because you lost your insurance you could not afford it? No Have you stopped taking medication because you felt you didn't need it or because of side-effects? No Transplant social work program coordinator encouraged the patient to work on becoming more familiar with her medications and her health care management. Patient verbalized understanding. Potential living donors: No SUBSTANCE USE/ABUSE Alcohol: The patient does not drink and never has. Tobacco: No Exposure to second hand smoke: No Cocaine, THC, Heroin, or Other Recreational Drug Use: No Over the Counter Medications: No Opioids/Controlled Substances: No LEGAL ENCOUNTERS History of any legal issues: No MENTAL HEALTH HISTORY Affect: Appropriate/Consistent Alert: Alert Orientation: person, place and time Appearance: Unremarkable/appropriate Cognitive Function: Cognition appears relatively intact Mood: Euthymic Timid Are you having thoughts that you would be better off , or of hurting yourself in some way? No Current mental health diagnoses / current feelings of anxiety or depression: Denies any current symptoms of anxiety or depression. Previous mental health diagnoses: The patient states she takes a psychiatric medications but is unsure what med. She believes she has taken it for a year. She does not know why she was prescribed themedication and feels no difference. The patient explained she has a family history of depression. Psychiatric medication: Yes, Zoloft (per chart). Who prescribes: PCP Counseling: No Psychiatric services: No History of suicide attempt(s) or ideation: No History of harming self: No History of harming others: No History of psychiatric hospitalization: No Transplant social work program coordinator asked the patient if she feels safe at home: Yes Is a referral to Transplant Psychiatry indicated for further evaluation or screening: No EDUCATION Highest Educational Level: Some college Reading/Comprehension Problems Then or Now: No HEALTH INSURANCE/FINANCIAL Medical Insurance: [facility] Medicare and [employer] Medicaid Payer of Insurance: Patient Prescription Coverage: Medicaid Insurance Policy Hilario: Patient Medicare Status: Medicare - linked through disability Employment status: Disability ($1900 per month). She started receiving disability in 2018. Prior tothis she worked for a [employer], [email or web address], doing [employer] work. Household Income: $1900 per month The patient shares household expenses with her significant other. Pt was given a list of the medications for Kidney [place] recipients to learn how her insurance coverageapplies. SW informed pt that she must be prepared to cover the copays of her immunosuppression and anti viral medications. CAREGIVER/SUPPORT PLAN Primary Caregiver: Karri, patients significant other. He is 60 years old and he works at a [employer]. 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 Contact Number: . Health Status and Availability: . Valid Professional Sports Scout's License/Working Vehicle: . Caregiver Substance Use: . Caregiver Mental Health: . The patient explained she would need to talk with some of her friends to identify a secondary caregiver. The patient explained she is approved for the waiver program but has struggled to get services due to the lack of coverage in her area. - cant get the help due to the area - has been approved for [employer] (5 days a week, 3 hours a day) IMPRESSIONS/RECOMMENDATIONS Patient was medically declined at this time for transplant - please see transplant Urology evaluation. At this time, Layne Sprague is not a suitable psychosocial candidate for a kidney transplant. Layne Sprague had the opportunity to discuss any issues and questions. Patient was given information and brochures about the kidney transplant process and fund raising options. The patient was given the phone number of the transplant social work program coordinator to address future concerns. TL Montgomery, SABRINA, [facility] Transplant Type Copy Examiner documented in this encounterMer[facility]11-08-2023 NoteHNO ID: [id number] Author: Dorita Pimentel RN Service: ? Author Type: Registered Nurse Type: Progress Notes Filed: 02/06/2023 11:03 AM Note Text: PRE-TRANSPLANT PATIENT EDUCATION NOTE Type of Transplant: Kidney Informed Consent for Evaluation signed: Yes Multiple Listing Form signed: Yes READINESS TO LEARN: Cognitive Ability: Alert and oriented Motivation to Learn: Interested Family Support: Unable to assess - Family not present Instruction Provided to: Patient Patient Learns Best by: Multiple Methods Factors Affecting Learning: None Physical Limitations Affecting Learning: None LEARNING RESPONSE: Diagnosis: ESRD Education Topics/Teaching Points: -Discussed living donor evaluation and approval process. -Discussed the evaluation and listing process. -Discussed the different types of donors (KDPI scoring, DCD, High Risk). -Explained EPTS scoring and how it is calculated. -Explained the surgical procedure and potential complications, surgeons, hospital stay at the time of transplant. -Explained lifetime immunosuppression therapy and frequency of blood draws/labs post-op and post-op course of treatment. -Reviewed National and CCF outcomes from the most recent [facility]specific report; a copy of the program summary was given to the patient. -Explained that if the transplant is not performed at a Medicare-approved transplant center it could affect the ability to have immunosuppressive medications paid under Medicare Part B. Supplemental Material: -Pre-Transplant Patient Education Folder -UNOS: Questions AND Answers for Transplant Candidates about Multiple Listing and Waiting Time Transfer -UNOS: Questions AND Answers for Transplant Candidates about Kidney Allocation Policy -Directions to access [facility]'s data through the [facility] website. -Informed Consent for Transplant Program Participation patient education packet -National Kidney Registry pamphlet -Covid-19 Vaccination for Transplant Candidates Method of Instruction: Group class instruction Written instruction - handouts Verbal instruction Computer Patient/Family Response: Pt denied having having any questions Follow-Up Plan: Complete - No need for follow-up Referral/Recommendation: None Dorita Pimentel RN Pre-Transplant CoordinatorUniversity [facility]11-08-[facility] History of Present illness Narrative* Dorita Pimentel RN - 02/06/2023 8:00 AM EST PRE-TRANSPLANT PATIENT EDUCATION NOTE Type of Transplant: Kidney Informed Consent for Evaluation signed: Yes Multiple Listing Form signed: Yes READINESS TO LEARN: Cognitive Ability: Alert and oriented Motivation to Learn: Interested Family Support: Unable to assess - Family not present Instruction Provided to: Patient Patient Learns Best by: Multiple Methods Factors Affecting Learning: None Physical Limitations Affecting Learning: None LEARNING RESPONSE: Diagnosis: ESRD Education Topics/Teaching Points: -Discussed living donor evaluation and approval process. -Discussed the evaluation and listing process. -Discussed the different types of donors (KDPI scoring, DCD, High Risk). -Explained EPTS scoring and how it is calculated. -Explained the surgical procedure and potential complications, surgeons, hospital stay at the time of transplant. -Explained lifetime immunosuppression therapy and frequency of blood draws/labs post-op and post-opcourse of treatment. -Reviewed National and CCF outcomes from the most recent [facility] center-specific report; a copy of theprogram summary was given to the patient. -Explained that if the transplant is not performed at a Medicare-approved transplant center it could affect the ability to have immunosuppressive medications paid under Medicare Part B. Supplemental Material: -Pre-Transplant Patient Education Folder -UNOS: Questions & Answers for Transplant Candidates about Multiple Listing and Waiting Time Transfer -UNOS: Questions & Answers for Transplant Candidates about Kidney Allocation Policy -Directions to access [facility]'s data through the [facility] website. -Informed Consent for Transplant Program Participation patient education packet -National Kidney Registry pamphlet -Covid-19 Vaccination for Transplant Candidates Method of Instruction: Group class instruction Written instruction - handouts Verbal instruction Computer Patient/Family Response: Pt denied having having any questions Follow-Up Plan: Complete - No need for follow-up Referral/Recommendation: None Dorita Pimentel RN Pre-Civil Cad Tech documented in this encounterMercy Health [facility] Hospital11-03-2023 NoteHNO ID: [id number] Author: Jacquie Cox, KEN Service: ? Author Type: RATE QUOTING OPERATOR Type: Progress Notes Filed: 02/01/2023 2:37 PM Note Text: 1. 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 Dacosta due to wound care and dialysis on and inability to travel further due to transportation issues Hx of PRP right eye with Dr. Dacosta on 06/29/21 Hx of Avastin injections with Dr. Dacosta 07/20, 08/19, 10/19, 01/19 and 06/20 Went over importance of being followed be retina for her Diabetes and to preserve her vision Patient agreed to see Dr. Juárez in [place] (if able to find ride) next available 2. Combined forms of age-related cataract of both eyes + visually significant Monitor 3. Refractive error Finalized spec rx with some vision improvement Follow-up with Dr. Juárez in [place] for PDR Jacquie Cox, OD February 01, 2023 2:30 [facility]11-03-2023 History of Present illness Narrative* Jacquie Cox, OD - 02/01/2023 2:30 PM EDT 1. 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 Dacosta due to wound care and dialysis on and inability to travel further due to transportation issues Hx of PRP right eye with Dr. Dacosta on 06/29/21 Hx of Avastin injections with Dr. Dacosta 07/20, 08/19, 10/19, 01/19 and 06/20 Went over importance of being followed be retina for her Diabetes and to preserve her vision Patient agreed to see Dr. Juárez in [place] (if able to find ride) next available 2. Combined forms of age-related cataract of both eyes + visually significant Monitor 3. Refractive error Finalized spec rx with some vision improvement Follow-up with Dr. Juárez in [place] for PDR Jacquie Cox, OD February 01, 2023 2:30 PM documented in this encounterMercy Health [facility] Hospital10-27-2023 NotePatient Outreach (NETNAV) LAYNE SPRAGUE ([id number]) 1960 F Date Time Provider Department 01/25/23 KAYLA CARVAJAL During your visit today, we recorded the following information about you: Kayla Carvajal, MONTEZ 01/25/2023 12:01 PM Signed POPULATION HEALTH NAVIGATION OUTREACH Action/ Pt due for: Mammogram Colonoscopy Dilated retinal exam Flu shot Spoke to pt, eye exam scheduled. Declined mammogram, colonoscopy, and flu. Patient Identified by Name and : YES, via phone Outreach Outcome/Action Spoke to patient / parent / legal guardian: Patient scheduled Did you use a PCP flex slot to schedule this appointment? N/A Reason for Outreach Care Gap or Scheduling/Wellness visits Payer: Payor: [employer] / Plan: [employer] HMO / Product Type: HMO / Care Gap Reviewed:: Breast Cancer screening Colorectal Cancer Screening Diabetic Eye Exam Flu Vaccine Reminder: Reminder note to check Health Maintenance for items below Health Maintenance items due: Hepatitis C Screening Never done HIV Screening Never done BP Controlled (<130/80) Never done Hepatitis A Vaccine(1 of 2 - Risk 2-dose series) Never done Shingrix Vaccine(1 of 2) Never done Pneumococcal Vaccine(2 - PCV) due on 01/12/2010 Pap Testing due on 07/29/2017 HPV Testing due on 07/29/2017 DTaP,Tdap,Td Vaccine(4 - Td or Tdap) due on 01/12/2019 Mammogram Screening due on 07/06/2021 Depression Assessment Never done Diabetic Foot Exam due on 06/15/2022 LDL Cholesterol due on 06/19/2022 Hepatitis B Vaccine(1 of 3 - Risk 3-dose series) Never done RSV Vaccine(1 - 1-dose 60+ series) Never done Influenza Vaccine(1) due on 11/30/2022 Covid-19 Vaccine(4 - 24 season) due on 11/30/2022 Colorectal Cancer Screening due on 12/24/2022 Dilated Retinal Exam due on 02/09/2023 Navigation Signature: MONTEZ Mccarthy January 25, 2023 8:33 AM Allergies As of Date: 01/25/2023 Noted Allergy Reaction METFORMIN 10/09/2018 8 - GI Upset Date Reviewed: 2022 Reviewed by: Da Saucedo LPN - Fully Assessed Reason for Visit: Population Health Navigation Outreach [[id number]] Cmt: [place] katia guidry Prescriptions as of 01/25/2023 - cloNIDine HCl (CATAPRES) 0.3 mg tablet Take 1 tablet by mouth three times a day. - calcium acetate,phosphat bind, (PHOSLO) 667 mg capsule Take 1 capsule by mouth three times daily. - atorvastatin (LIPITOR) 40 mg tablet Take 1 tablet by mouth daily at bedtime. - pantoprazole DR (PROTONIX) 40 mg tablet Take 1 tablet by mouth daily before breakfast. Take on empty stomach, 1/2 hr before meal. - insulin glargine 100 unit/mL (3 mL) Inject 10 Units subcutaneously daily at bedtime. - sertraline (ZOLOFT) 50 mg tablet Take 1 tablet by mouth once daily. - flash glucose sensor (FREESTYLE KRISTA 14 DAY SENSOR) kit Use four times a day and as needed for blood sugar monitoring - potassium chloride (K-TAB) 10 mEq tablet Take 10 mEq by mouth every morning. - MULTIVITAMIN ORAL Take by mouth. - ondansetron orally disintegrating (ZOFRAN ODT) 4 mg disintegrating tablet Take 1 tablet by mouth every 8 hours as needed. - pregabalin (LYRICA) 75 mg capsule Take 1 capsule by mouth twice daily for 30 days. - furosemide (LASIX) 20 mg tablet Take 1 tablet by mouth. - furosemide (LASIX) 40 mg tablet Take 1 tablet by mouth. - Omeprazole Magnesium 20 mg tablet Take 1 tablet by mouth. - hydrALAZINE (APRESOLINE) 100 mg tablet Take 1 tablet by mouth. - dilTIAZem CD (CARDIZEM CD) 240 mg 24 hr capsule Take 1 capsule by mouth once daily. - midodrine (PROAMATINE) 2.5 mg tablet Take 1 tablet by mouth twice daily. Hold for systolic BP above 180 - insulin lispro (HUMALOG KWIKPEN INSULIN) 100 unit/mL 8 units sq TID, and sliding scale. Maximum 50u per day - ferrous sulfate 325 mg (65 mg iron) tablet Take 325 mg by mouth daily with breakfast. - insulin needles, DISPOSABLE, (PEN NEEDLE) 31 gauge x 5/16 Use one needle per dose. Twice per day. - blood sugar diagnostic (BLOOD GLUCOSE TEST) test strip Test blood sugar(s) 4 times daily. Dx: Other DM Code E13.65 Insulin: Yes - Lancets lancets Test blood sugar(s) 4 times daily. Dx: Other DM Code E13.65 Insulin: Yes - blood sugar diagnostic (FREESTYLE LITE STRIPS) test strip Test blood sugar(s) 4 times daily. Insulin: Yes - alcohol swabs (ALCOHOL PADS) Use to prior to checking blood sugar 4 times daily. - polyethylene glycol 3350 (MIRALAX) 17 gram/dose powder For colonoscopy prep - bisacodyl EC (DULCOLAX, BISACODYL,) 5 mg EC tablet Take 1 tablet by mouth as directed. Take two (2) each time, as explained on the instruction sheet provided. - magnesium oxide (MAG-OX) 400 mg (241.3 mg magnesium) tablet Take 1 tablet by mouth twice daily. - flash glucose scanning reader (FREESTYLE KRISTA 14 DAY READER) 1 Each four times d (more content not included)...[facility] 01-25-2023 NoteHNO ID: [id number] Author: Kayla Carvajal PSS Service: ? Author Type: ? Type: Progress Notes Filed: 01/25/2023 12:01 PM Note Text: POPULATION HEALTH NAVIGATION OUTREACH Action/FYI Pt due for: Mammogram Colonoscopy Dilated retinal exam Flu shot Spoke to pt, eye exam scheduled. Declined mammogram, colonoscopy, and flu. Patient Identified by Name and : YES, via phone Outreach Outcome/Action Spoke to patient / parent / legal guardian: Patient scheduled Did you use a PCP flex slot to schedule this appointment? N/A Reason for Outreach Care Gap or Scheduling/Wellness visits Payer: Payor: [employer] / Plan: [employer] HMO / Product Type: HMO / Care Gap Reviewed:: Breast Cancer screening Colorectal Cancer Screening Diabetic Eye Exam Flu Vaccine Reminder: Reminder note to check Health Maintenance for items below Health Maintenance items due: Hepatitis C Screening Never done HIV Screening Never done BP Controlled (<130/80) Never done Hepatitis A Vaccine(1 of 2 - Risk 2-dose series) Never done Shingrix Vaccine(1 of 2) Never done Pneumococcal Vaccine(2 - PCV) due on 01/12/2010 Pap Testing due on 07/29/2017 HPV Testing due on 07/29/2017 DTaP,Tdap,Td Vaccine(4 - Td or Tdap) due on 01/12/2019 Mammogram Screening due on 07/06/2021 Depression Assessment Never done Diabetic Foot Exam due on 06/15/2022 LDL Cholesterol due on 06/19/2022 Hepatitis B Vaccine(1 of 3 - Risk 3-dose series) Never done RSV Vaccine(1 - 1-dose 60+ series) Never done Influenza Vaccine(1) due on 11/30/2022 Covid-19 Vaccine( - 2022-24 season) due on 11/30/2022 Colorectal Cancer Screening due on 12/24/2022 Dilated Retinal Exam due on 02/09/2023 Navigation Signature: MONTEZ Mccarthy January 25, 2023 8:33 [facility]10-27-2023 History of Present illness Narrative* Kayla Carvajal PSS - 01/25/2023 8:33 AM EDT POPULATION HEALTH NAVIGATION OUTREACH Action/FYI Pt due for: Mammogram Colonoscopy Dilated retinal exam Flu shot Spoke to pt, eye exam scheduled. Declined mammogram, colonoscopy, and flu. Patient Identified by Name and : YES, via phone Outreach Outcome/Action Spoke to patient / parent / legal guardian: Patient scheduled Did you use a PCP flex slot to schedule this appointment? N/A Reason for Outreach Care Gap or Scheduling/Wellness visits Payer: Payor: [employer] / Plan: [employer] HMO / Product Type: HMO / Care Gap Reviewed:: Breast Cancer screening Colorectal Cancer Screening Diabetic Eye Exam Flu Vaccine Reminder: Reminder note to check Health Maintenance for items below Health Maintenance items due: Hepatitis C Screening Never done HIV Screening Never done BP Controlled (<130/80) Never done Hepatitis A Vaccine(1 of 2 - Risk 2-dose series) Never done Shingrix Vaccine(1 of 2) Never done Pneumococcal Vaccine(2 - PCV) due on 01/12/2010 Pap Testing due on 07/29/2017 HPV Testing due on 07/29/2017 DTaP,Tdap,Td Vaccine(4 - Td or Tdap) due on 01/12/2019 Mammogram Screening due on 07/06/2021 Depression Assessment Never done Diabetic Foot Exam due on 06/15/2022 LDL Cholesterol due on 06/19/2022 Hepatitis B Vaccine(1 of 3 - Risk 3-dose series) Never done RSV Vaccine(1 - 1-dose 60+ series) Never done Influenza Vaccine(1) due on 11/30/2022 Covid-19 Vaccine(4 - 2022-24 season) due on 11/30/2022 Colorectal Cancer Screening due on 12/24/2022 Dilated Retinal Exam due on 02/09/2023 Navigation Signature: MONTEZ Mccarthy January 25, 2023 8:33 AM documented in this encounterMercy [facility]10-13-2023 Miscellaneous Notes* Telephone Encounter - Marie Porter - 01/11/2023 8:12 AM EDT Patient has been identified by name and date of : Yes Last office visit in this department: Visit date not found RX INSTRUCTIONS: Patient aware RX will be sent to pharmacy. No need to notify patient. Patient phones requesting refills as follows: Requested Prescriptions Pending Prescriptions Disp Refills cloNIDine HCl (CATAPRES) 0.3 mg tablet 90 tablet 5 Sig: Take 1 tablet by mouth three times a day. Please review and advise. Marie Porter documented in this encounterMercy Health [facility] Hospital08-30-2023 NoteHNO ID: [id number] Author: Dorita Pimentel RN Service: ? Author Type: Registered Nurse Type: Progress Notes Filed: 11/28/2022 11:51 AM Note Text: Hx: uses rollator; 02/14/22 ECHO/EF 45% New Referral Referring Physician Aubree Terry Organ Type kidney ESRD Yes. Cause: DM/HTN Dialysis Dependant? Yes Name of Dialysis Facility: [facility] 06-09-22 T,, Diabetes Yes. 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 no Willing to accept blood transfusion? yes Potential Living Donor? no Full Transplant Evaluation? yes Malnutrition Screening Tool (MST) 1. Have you lost weight without trying? No- 0 Weight loss score: 0 2. Have you been eating poorly in the last week because of a decreased appetite? No- 0 Appetite score: 0 Total MST score (weight loss + appetite scores): 0 Score of 2 or more = referral to registered dietitian for an individual appointment Dorita Pimentel RN Pre-Kidney AND Pancreas Civil Cad Tech [facility]07-26-2023 Miscellaneous Notes* Telephone Encounter - Korin Norman - 10/24/2022 3:11 PM EDT Called and spoke with patient regarding kidney transplant, intake completed, and to nurse coordinator for review. Korin Norman Pre- transplant intake form Date: 10/24/2022 Spoke with: Patient EMAIL: Office Appts M/F: F Work Status: not working Race: W Marital Status: Single Ht/Wt: BMI: 5'5 141 Lbs; BMI = 23.5 Weight loss without trying? No Decreased Appetite? No Nutrition = 0 Assistive devices? Yes - Rolator Activity Level? W/O assistance walks about few feet, per patient d/t balance and BP will drop if goes too far = Sedentary Smoking? Never O2? COPD/Emphysema? No to all Transfusions, Willing to accept? Yes Dialysis? [facility]? [facility] Start date? 06/09/2022 Referring doctor? AUBREE TERRY I Mammo? Pap? Yes - 2 yrs ago Yes - long ago - Patient to schedule both Colonoscopy? Yes (see epic) Previous Transplant? No Nephrectomy? No Evaluation elsewhere? Listed? No No Kidney Biopsy? Liver Biopsy? No No Cirrhosis? Hepatitis? HIV? Cancer? No No No No Diabetes 1 or 2? 2 Age diagnosed? Approx 52 Insulin dependent? Yes Hypoglycemic unawareness? No Hypertension? CAD? DC? CABG/STENTS? Yes No No No Stress? Echo? Cath? Yes Yes No DVT/PE? No CVA/TIA? No Lupus? No Sickle/Trait? NA Blood thinner? No ETOH? Drug use? Psych disorder? No No No Prior Surgeries? Cath - chest uses for dialysis at this time, Fistula (L) Arm (See Epic) Living Donors? No documented in this encounterMer[facility]19-[facility]23 Miscellaneous Notes* Telephone Encounter - Jannette Fernandez RN - 10/17/2022 1:49 PM EDT Last Office Visit: 2022 Future Office Visit: 12/24/2022 Requested Prescriptions Pending Prescriptions Disp Refills atorvastatin (LIPITOR) 40 mg tablet 30 tablet 11 Sig: Take 1 tablet by mouth daily at bedtime. documented in this encounterMer[facility]07-10-2023 Miscellaneous Notes* Telephone Encounter - Da Saucedo LPN - 10/08/2022 1:24 PM EDT JACK 09/19/22 NOV 12/24/22 * Telephone Encounter - Linda Barrientos - 10/08/2022 11:53 AM EDT Pt states she has been taking this medication but it has not been refilled with last office visits. Patient has been identified by name and date of : Yes Last office visit in this department: 2022 RX INSTRUCTIONS: Patient aware RX will be sent to pharmacy. No need to notify patient. Patient phones requesting refills as follows: Requested Prescriptions Pending Prescriptions Disp Refills pantoprazole DR (PROTONIX) 40 mg tablet 11 Sig: Take 1 tablet by mouth daily before breakfast. Take on empty stomach, 1/2 hr before meal. Please review and advise. Linda Barrientos documented in this encounterMercy [facility]06-28-2023 Miscellaneous Notes* Telephone Encounter - Kathie Lewis LPN - 09/26/2022 5:27 PM EDT Order & JACK notes faxed to [phone] via [employer] as requested. Kathie Lewis LPN * Telephone Encounter - Xenia Jaquez APRN.CNP - 09/26/2022 5:15 PM EDT Script printed. Please fax to location of patient preference. Xenia Jaquez APRN.CNP * Telephone Encounter - Katerine Vaughan LPN - 09/25/2022 3:39 PM EDT Form received from [facility] agency on aging and disabilities. Patient is receiving case management services, patient requesting the following DME/HME item: [facility] for this item needed and any relevant [id number] chart notes faxed to [phone] Attn:Florentino Please review and advise documented in this encounterMercy Health [facility]06-21-2023 NoteHNO ID: [id number] Author: Xenia Jaquez APRN.CHIEF TRANSFER AND PUMPHOUSE OPERATOR Service: ? Author Type: Nurse Practitioner Type: Progress Notes Filed: 09/20/2022 1:35 PM Note Text: This is a 62 year old female who presents today with: Patient presents with: Recheck: 3 month follow up HISTORY OF PRESENT ILLNESS: Layne Sprague is a 62 year old female. Patient presents with: Recheck: 3 month follow up Pt presents today for 3 month follow-up. Diabetes: Refers numbers still swing a lot. Has been using lantus daily. Uses 8 units of lispro. Refers she will get a low glucose every couple of weeks. Has an appt with Dr. Carbajal -- thinks it is scheduled for October. Dialysis: Goes Saturday, , and Saturday. Has a line. Has a fistula in the right forearm that they are going to try to access tomorrow for the first time. Left heel wound: Needs a new referral to wound center for left heel wound. She is known to them. Mood: I don't have time to get depressed. Pain management Follows with dr. Steel. HTN: No CP/SOB/palpitations. PAST MEDICAL HISTORY: PAST MEDICAL HISTORY Diagnosis Date Concussion 09/2008 - from fall at work Diabetes (HCC) Gastroparesis due to DM (HCC) 09/17/2012 Genital herpes 10/28/2009 Migraine without aura 08/19/2008 Orthostasis Pelvic pain in female 07/29/2012 PMH - PAST MEDICAL HISTORY OF TMJ Vertigo of central origin 04/24/2012 PAST SURGICAL HISTORY Procedure Laterality Date COLONOSCOPY FLX DX W/COLLJ SPEC WHEN PFRMD 12/24/2012 Colonoscopy ESOPHAGOGASTRODUODENOSCOPY TRANSORAL DIAGNOSTIC 01/31/2012 EGD LAPS SURG CHOLECYSTECTOMY W/CHOLANGIOGRAPHY 02/01/2012 Normal IOC PAST SURGICAL HISTORY OF TMJ replacements x 2 PAST SURGICAL HISTORY OF Jaw surgery PAST SURGICAL HISTORY OF PAST SURGICAL HISTORY OF left hip pinned ALLERGIES Metformin MEDICATIONS Current Outpatient Medications Medication Sig sertraline (ZOLOFT) 50 mg tablet Take 1 tablet by mouth once daily. cloNIDine HCl (CATAPRES) 0.3 mg tablet Take 1 tablet by mouth three times daily. flash glucose sensor (FREESTYLE KRISTA 14 DAY SENSOR) kit Use four times a day and as needed for blood sugar monitoring potassium chloride (K-TAB) 10 mEq tablet Take 10 mEq by mouth every morning. MULTIVITAMIN ORAL Take by mouth. ondansetron orally disintegrating (ZOFRAN ODT) 4 mg disintegrating tablet Take 1 tablet by mouth every 8 hours as needed. pregabalin (LYRICA) 75 mg capsule Take 1 capsule by mouth twice daily for 30 days. calcium acetate,phosphat bind, (PHOSLO) 667 mg capsule Take 667 mg by mouth three times daily. furosemide (LASIX) 20 mg tablet Take 1 tablet by mouth. furosemide (LASIX) 40 mg tablet Take 1 tablet by mouth. Omeprazole Magnesium 20 mg tablet Take 1 tablet by mouth. hydrALAZINE (APRESOLINE) 100 mg tablet Take 1 tablet by mouth. dilTIAZem CD (CARDIZEM CD) 240 mg 24 hr capsule Take 1 capsule by mouth once daily. (Patient taking differently: Take 180 mg by mouth once daily.) midodrine (PROAMATINE) 2.5 mg tablet Take 1 tablet by mouth twice daily. Hold for systolic BP above 180 insulin glargine (LANTUS SOLOSTAR, BASAGLAR KWIKPEN) 100 unit/mL (3 mL) Inject 35 Units subcutaneously daily at bedtime. (Patient taking differently: Inject 10 Units subcutaneously daily at bedtime.) insulin lispro (HUMALOG KWIKPEN INSULIN) 100 unit/mL 8 units sq TID, and sliding scale. Maximum 50u per day ferrous sulfate 325 mg (65 mg iron) tablet Take 325 mg by mouth daily with breakfast. atorvastatin (LIPITOR) 40 mg tablet Take 1 tablet by mouth daily at bedtime. insulin needles, DISPOSABLE, (PEN NEEDLE) 31 gauge x 5/16 Use one needle per dose. Twice per day. blood sugar diagnostic (BLOOD GLUCOSE TEST) test strip Test blood sugar(s) 4 times daily. Dx: Other DM Code E13.65 Insulin: Yes Lancets lancets Test blood sugar(s) 4 times daily. Dx: Other DM Code E13.65 Insulin: Yes blood sugar diagnostic (FREESTYLE LITE STRIPS) test strip Test blood sugar(s) 4 times daily. Insulin: Yes (Patient taking differently: Test blood sugar(s) 4 times daily. Insulin: Yes) alcohol swabs (ALCOHOL PADS) Use to prior to checking blood sugar 4 times daily. magnesium oxide (MAG-OX) 400 mg (241.3 mg magnesium) tablet Take 1 tablet by mouth twice daily. flash glucose scanning reader (FREESTYLE KRISTA 14 DAY READER) 1 Each four times daily. traMADol (ULTRAM) 50 mg tablet Take 50 mg by mouth every 8 hours as needed. meclizine (ANTIVERT) 25 mg tab Take 1 tablet by mouth every 6 hours as needed (dizziness). Miscellaneous Medical Supply (BLOOD PRESSURE CUFF) misc Use as directed. Blood Pressure Monitor kit Use as directed COMPOUNDED PRESCRIPTION Quad cane aspirin 81 mg chewable tablet Take 1 tablet by mouth once daily. polyethylene glycol 3350 (MIRALAX) 17 gram/dose powder For colonoscopy prep bisacodyl EC (DULCOLAX, BISACODYL,) 5 mg EC tablet Take 1 tablet by mouth as directed. Take two (2) (more content not included)...[facility]06-21-2023 Instructions* Patient Instructions* Xenia Jaquez APRN.CNP - 2022 12:10 PM EDT Continue the same medications. We'll fax order to wound clinic. We'll check into the home health. 4. Follow-up w/ endocrinology. 5. Recheck in 3 months. documented in this encounterMer[facility]06-21-2023 History of Present illness Narrative* Xenia Jaquez APRN.CNP - 2022 11:43 AM EDT This is a 62 year old female who presents today with: Patient presents with: Recheck: 3 month follow up HISTORY OF PRESENT ILLNESS: Layne Sprague is a 62 year old female. Patient presents with: Recheck: 3 month follow up Pt presents today for 3 month follow-up. Diabetes: Refers numbers still swing a lot. Has been using lantus daily. Uses 8 units of lispro. Refers she will get a low glucose every couple of weeks. Has an appt with Dr. Carbajal -- thinks it is scheduled for October. Dialysis: Goes Saturday, , and Saturday. Has a line. Has a fistula in the right forearm that they are going to try to access tomorrow for the first time. Left heel wound: Needs a new referral to wound center for left heel wound. She is known to them. Mood: I don't have time to get depressed. Pain management Follows with dr. Steel. HTN: No CP/SOB/palpitations. PAST MEDICAL HISTORY: PAST MEDICAL HISTORY Diagnosis Date Concussion 09/2008 - from fall at work Diabetes (HCC) Gastroparesis due to DM (HCC) 09/17/2012 Genital herpes 10/28/2009 Migraine without aura 08/19/2008 Orthostasis Pelvic pain in female 07/29/2012 PMH - PAST MEDICAL HISTORY OF TMJ Vertigo of central origin 04/24/2012 PAST SURGICAL HISTORY Procedure Laterality Date COLONOSCOPY FLX DX W/COLLJ SPEC WHEN PFRMD 12/24/2012 Colonoscopy ESOPHAGOGASTRODUODENOSCOPY TRANSORAL DIAGNOSTIC 01/31/2012 EGD LAPS SURG CHOLECYSTECTOMY W/CHOLANGIOGRAPHY 02/01/2012 Normal IOC PAST SURGICAL HISTORY OF TMJ replacements x 2 PAST SURGICAL HISTORY OF Jaw surgery PAST SURGICAL HISTORY OF PAST SURGICAL HISTORY OF left hip pinned ALLERGIES Metformin MEDICATIONS Current Outpatient Medications Medication Sig sertraline (ZOLOFT) 50 mg tablet Take 1 tablet by mouth once daily. cloNIDine HCl (CATAPRES) 0.3 mg tablet Take 1 tablet by mouth three times daily. flash glucose sensor (FREESTYLE KRISTA 14 DAY SENSOR) kit Use four times a day and as needed for blood sugar monitoring potassium chloride (K-TAB) 10 mEq tablet Take 10 mEq by mouth every morning. MULTIVITAMIN ORAL Take by mouth. ondansetron orally disintegrating (ZOFRAN ODT) 4 mg disintegrating tablet Take 1 tablet by mouth every 8 hours as needed. pregabalin (LYRICA) 75 mg capsule Take 1 capsule by mouth twice daily for 30 days. calcium acetate,phosphat bind, (PHOSLO) 667 mg capsule Take 667 mg by mouth three times daily. furosemide (LASIX) 20 mg tablet Take 1 tablet by mouth. furosemide (LASIX) 40 mg tablet Take 1 tablet by mouth. Omeprazole Magnesium 20 mg tablet Take 1 tablet by mouth. hydrALAZINE (APRESOLINE) 100 mg tablet Take 1 tablet by mouth. dilTIAZem CD (CARDIZEM CD) 240 mg 24 hr capsule Take 1 capsule by mouth once daily. (Patient takingdifferently: Take 180 mg by mouth once daily.) midodrine (PROAMATINE) 2.5 mg tablet Take 1 tablet by mouth twice daily. Hold for systolic BP [id number] insulin glargine (LANTUS SOLOSTAR, BASAGLAR KWIKPEN) 100 unit/mL (3 mL) Inject 35 Units subcutaneously daily at bedtime. (Patient taking differently: Inject 10 Units subcutaneously daily at bedtime.) insulin lispro (HUMALOG KWIKPEN INSULIN) 100 unit/mL 8 units sq TID, and sliding scale. Maximum 50uper day ferrous sulfate 325 mg (65 mg iron) tablet Take 325 mg by mouth daily with breakfast. atorvastatin (LIPITOR) 40 mg tablet Take 1 tablet by mouth daily at bedtime. insulin needles, DISPOSABLE, (PEN NEEDLE) 31 gauge x 5/16 Use one needle per dose. Twice per day. blood sugar diagnostic (BLOOD GLUCOSE TEST) test strip Test blood sugar(s) 4 times daily. Dx: OtherDM Code E13.65 Insulin: Yes Lancets lancets Test blood sugar(s) 4 times daily. Dx: Other DM Code E13.65 Insulin: Yes blood sugar diagnostic (FREESTYLE LITE STRIPS) test strip Test blood sugar(s) 4 times daily. Insulin: Yes (Patient taking differently: Test blood sugar(s) 4 times daily. Insulin: Yes) alcohol swabs (ALCOHOL PADS) Use to prior to checking blood sugar 4 times daily. magnesium oxide (MAG-OX) 400 mg (241.3 mg magnesium) tablet Take 1 tablet by mouth twice daily. flash glucose scanning reader (FREESTYLE KRISTA 14 DAY READER) 1 Each four times daily. traMADol (ULTRAM) 50 mg tablet Take 50 mg by mouth every 8 hours as needed. meclizine (ANTIVERT) 25 mg tab Take 1 tablet by mouth every 6 hours as needed (dizziness). Miscellaneous Medical Supply (BLOOD PRESSURE CUFF) misc Use as directed. Blood Pressure Monitor kit Use as directed COMPOUNDED PRESCRIPTION Quad cane aspirin 81 mg chewable tablet Take 1 tablet by mouth once daily. polyethylene glycol 3350 (MIRALAX) 17 gram/dose powder For colonoscopy prep bisacodyl EC (DULCOLAX, BISACODYL,) 5 mg EC tablet Take 1 tablet by mouth as directed. Take two (2)each time, as explained on the instruction sheet provided. blood sugar diagnostic (BLOOD GLUCOSE TEST) test strip Test blood sugar(s) 4 times daily. Dx: Type 2 DM - Uncontrolled E11.65 Insulin: Yes Lancets lancets Test blood sugar(s) 4 times daily. Dx: Type 2 DM - Uncontrolled E11.65 Insulin: Yes No current facility-administered medications for this visit. FAMILY HISTORY Problem Relation Age of Onset Hypertension Mother Lipids Mother Cancer Father Lymphoma, Leukemia Emphysema Father Cataract Father Diabetes Paternal Grandmother Breast Cancer Paternal Aunt Social History Tobacco Use Smoking status: Never Smokeless tobacco: Never Vaping Use Vaping Use: Never used Substance Use Topics Alcohol use: No Drug use: No EXAM: BP 144/76 Pulse (!) 59 Resp 16 LMP 09/30/2008 SpO2 97% PHYSICAL EXAM: General Appearance: Frail, alert, in no acute distress, well-hydrated, well nourished.. Skin: Skin color, texture, turgor normal, no suspicious rashes or lesions. Head: Normocephalic, no masses, lesions, tenderness or abnormalities. Eyes: Anicteric sclera. Extraocular movements are intact. . Neck: Supple, no adenopathy; thyroid symmetric, normal size, no bruits. + bruit left arm fistula. Right sided dialysis cath. Lungs: Lungs clear to auscultation. No wheezing, rhonchi, rales.. Heart: RRR without murmur, gallop, or rubs. No ectopy. Extremities: lower legs with + swelling and gabriela wraps intact. ASSESSMENT/PLAN: 1. 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 Carbajal. - INSULIN GLARGINE (U-100) 100 UNIT/ML (3 ML) SUBCUTANEOUS PEN 2. Non healing left heel wound - ICD9: 892.1, ICD10: S91.302A Pt known to wound center for left heel wound. Needs new referral to return. - CONSULT TO WOUND C[facility] USE ONLY 3. Benign essential HTN - ICD9: 401.1, ICD10: I10 Fair control - Continue current medications - Recommend home blood pressure monitoring, to bring results to next visit - Encouraged sodium restriction, DASH or Mediterranean diet - Recommend regular aerobic exercise 4. ESRD (end stage renal disease) on dialysis (HCC) - ICD9: 585.6, V45.11, ICD10: N18.6, Z99.2 Continue per nephrology. 5. Chronic pain syndrome - ICD9: 338.4, ICD10: G89.[address] Steel. Discussed treatment plan and patient voices understanding. Patient's questions answered appropriately. Medications and potential side effects were discussed and patient voices understanding. Return to the office as scheduled or as needed for worsening/no improvement. Xenia Jaquez APRN.CHIEF TRANSFER AND PUMPHOUSE OPERATOR documented in this encounterMercy [facility]06-15-2023 Miscellaneous Notes* Telephone Encounter - Evangelina Hui RN - 09/13/2022 4:46 PM EDT [facility] calling for refill of Pantoprazole. Advised no longer on patient's medication list. Evangelina Hui RN documented in this encounterMercy Health [facility]05-09-2023 Miscellaneous Notes* Telephone Encounter - Kathie Lewis LPN - 08/07/2022 4:44 PM EDT Saniya from [facility] reports pt has both medicare & medicaid & she has a care plan with [facility] & if pcp wants to add anything to the care plan he can by calling [phone] Opt 3. Kathie Lewis LPN documented in this encounterMercy Health [facility]05-04-2023 NoteHNO ID: [id number] Author: Annie Gonzales MA Service: ? Author Type: Mission Analyst Type: Progress Notes Filed: 08/02/2022 12:38 PM Note Text: POPULATION HEALTH NAVIGATION OUTREACH Action/FYI Left patient voicemail message to return call. No my chart. Mammogram, diabetic retinal exam, hgba1c, colorectal cancer screening Patient already scheduled for follow up/htn appointment on 09/10/22. Patient Identified by Name and : NO Outreach Outcome/Action Unable to reach patient: Left message Did you use a PCP flex slot to schedule this appointment? N/A Reason for Outreach Care Gap or Scheduling/Wellness visits Payer: Payor: [employer] / Plan: [employer] HMO / Product Type: HMO / Care Gap Reviewed:: Breast Cancer screening Colorectal Cancer Screening Diabetic Eye Exam HBA1C Reminder: Reminder note to check Health Maintenance for items below Health Maintenance items due: HEPATITIS C SCREENING Never done HIV SCREENING Never done BP CONTROLLED (<130/80) Never done PNEUMOCOCCAL(2 - PCV) due on 01/12/2010 SHINGRIX VACCINE(1 of 2) Never done PAP TESTING due on 07/29/2017 HPV TESTING due on 07/29/2017 DTAP,TDAP,TD(4 - Td or Tdap) due on 01/12/2019 MAMMOGRAM due on 07/06/2021 DEPRESSION ASSESSMENT Never done HBA1C due on 05/12/2022 DIABETIC FOOT EXAM due on 06/15/2022 LDL CHOLESTEROL due on 06/19/2022 Navigation Signature: Annie Gonzales MA August 02, 2022 12:34 [facility]05-04-2023 NotePatient Outreach (NETNAV) LAYNE SPRAGUE ([id number]) 1960 F Date Time Provider Department 08/02/22 ANNIE GONZALES During your visit today, we recorded the following information about you: Annie Gonzales MA 08/02/2022 12:38 PM Signed POPULATION HEALTH NAVIGATION OUTREACH Action/FYI Left patient voicemail message to return call. No my chart. Mammogram, diabetic retinal exam, hgba1c, colorectal cancer screening Patient already scheduled for follow up/htn appointment on 09/10/22. Patient Identified by Name and : NO Outreach Outcome/Action Unable to reach patient: Left message Did you use a PCP flex slot to schedule this appointment? N/A Reason for Outreach Care Gap or Scheduling/Wellness visits Payer: Payor: NA [employer] / Plan: NA [employer] HMO / Product Type: HMO / Care Gap Reviewed:: Breast Cancer screening Colorectal Cancer Screening Diabetic Eye Exam HBA1C Reminder: Reminder note to check Health Maintenance for items below Health Maintenance items due: HEPATITIS C SCREENING Never done HIV SCREENING Never done BP CONTROLLED (<130/80) Never done PNEUMOCOCCAL(2 - PCV) due on 01/12/2010 SHINGRIX VACCINE(1 of 2) Never done PAP TESTING due on 07/29/2017 HPV TESTING due on 07/29/2017 DTAP,TDAP,TD(4 - Td or Tdap) due on 01/12/2019 MAMMOGRAM due on 07/06/2021 DEPRESSION ASSESSMENT Never done HBA1C due on 05/12/2022 DIABETIC FOOT EXAM due on 06/15/2022 LDL CHOLESTEROL due on 06/19/2022 Navigation Signature: Annie Gonzales MA August 02, 2022 12:34 PM Allergies As of Date: 08/02/2022 Noted Allergy Reaction METFORMIN 10/09/2018 8 - GI Upset Date Reviewed: 02/09/2022 Reviewed by: Jacquie Cox OD - Fully Assessed Reason for Visit: Population Health Navigation Outreach [[id number]] Cmt: Navigator Na care gap outreach Prescriptions as of 08/02/2022 - cloNIDine HCl (CATAPRES) 0.3 mg tablet Take 1 tablet by mouth three times daily. - flash glucose sensor (FREESTYLE KRISTA 14 DAY SENSOR) kit Use four times a day and as needed for blood sugar monitoring - potassium chloride (K-TAB) 10 mEq tablet Take 10 mEq by mouth every morning. - MULTIVITAMIN ORAL Take by mouth. - ondansetron orally disintegrating (ZOFRAN ODT) 4 mg disintegrating tablet Take 1 tablet by mouth every 8 hours as needed. - pregabalin (LYRICA) 75 mg capsule Take 1 capsule by mouth twice daily for 30 days. - calcium acetate,phosphat bind, (PHOSLO) 667 mg capsule Take 667 mg by mouth three times daily. - furosemide (LASIX) 20 mg tablet Take 1 tablet by mouth. - furosemide (LASIX) 40 mg tablet Take 1 tablet by mouth. - Omeprazole Magnesium 20 mg tablet Take 1 tablet by mouth. - hydrALAZINE (APRESOLINE) 100 mg tablet Take 1 tablet by mouth. - dilTIAZem CD (CARDIZEM CD) 240 mg 24 hr capsule Take 1 capsule by mouth once daily. - midodrine (PROAMATINE) 2.5 mg tablet Take 1 tablet by mouth twice daily. Hold for systolic BP above 180 - insulin glargine (LANTUS SOLOSTAR, BASAGLAR KWIKPEN) 100 unit/mL (3 mL) Inject 35 Units subcutaneously daily at bedtime. - insulin lispro (HUMALOG KWIKPEN INSULIN) 100 unit/mL 8 units sq TID, and sliding scale. Maximum 50u per day - ferrous sulfate 325 mg (65 mg iron) tablet Take 325 mg by mouth daily with breakfast. - sertraline (ZOLOFT) 50 mg tablet Take 1 tablet by mouth once daily. - atorvastatin (LIPITOR) 40 mg tablet Take 1 tablet by mouth daily at bedtime. - insulin needles, DISPOSABLE, (PEN NEEDLE) 31 gauge x 5/16 Use one needle per dose. Twice per day. - blood sugar diagnostic (BLOOD GLUCOSE TEST) test strip Test blood sugar(s) 4 times daily. Dx: Other DM Code E13.65 Insulin: Yes - Lancets lancets Test blood sugar(s) 4 times daily. Dx: Other DM Code E13.65 Insulin: Yes - blood sugar diagnostic (FREESTYLE LITE STRIPS) test strip Test blood sugar(s) 4 times daily. Insulin: Yes - alcohol swabs (ALCOHOL PADS) Use to prior to checking blood sugar 4 times daily. - polyethylene glycol 3350 (MIRALAX) 17 gram/dose powder For colonoscopy prep - bisacodyl EC (DULCOLAX, BISACODYL,) 5 mg EC tablet Take 1 tablet by mouth as directed. Take two (2) each time, as explained on the instruction sheet provided. - magnesium oxide (MAG-OX) 400 mg (241.3 mg magnesium) tablet Take 1 tablet by mouth twice daily. - flash glucose scanning reader (FREESTYLE KRISTA 14 DAY READER) 1 Each four times daily. - traMADol (ULTRAM) 50 mg tablet Take 50 mg by mouth every 8 hours as needed. - meclizine (ANTIVERT) 25 mg tab Take 1 tablet by mouth every 6 hours as needed (dizziness). - Miscellaneous Medical Supply (BLOOD PRESSURE CUFF) misc Use as directed. - Blood Pressure Monitor kit Use as directed - COMPOUNDED PRESCRIPTION Quad cane - blood sugar diagnostic (BLOOD GLUCOSE TEST) test strip Test blood sugar(s) 4 times daily. Dx: Type 2 (more content not included)... [facility]05-04-2023 History of Present illness Narrative* Annie Gonzales MA - 08/02/2022 12:34 PM EDT POPULATION HEALTH NAVIGATION OUTREACH Action/FYI Left patient voicemail message to return call. No my chart. Mammogram, diabetic retinal exam, hgba1c, colorectal cancer screening Patient already scheduled for follow up/htn appointment on 09/10/22. Patient Identified by Name and : NO Outreach Outcome/Action Unable to reach patient: Left message Did you use a PCP flex slot to schedule this appointment? N/A Reason for Outreach Care Gap or Scheduling/Wellness visits Payer: Payor: [employer] / Plan: [employer] HMO / Product Type: HMO / Care Gap Reviewed:: Breast Cancer screening Colorectal Cancer Screening Diabetic Eye Exam HBA1C Reminder: Reminder note to check Health Maintenance for items below Health Maintenance items due: HEPATITIS C SCREENING Never done HIV SCREENING Never done BP CONTROLLED (<130/80) Never done PNEUMOCOCCAL(2 - PCV) due on 01/12/2010 SHINGRIX VACCINE(1 of 2) Never done PAP TESTING due on 07/29/2017 HPV TESTING due on 07/29/2017 DTAP,TDAP,TD(4 - Td or Tdap) due on 01/12/2019 MAMMOGRAM due on 07/06/2021 DEPRESSION ASSESSMENT Never done HBA1C due on 05/12/2022 DIABETIC FOOT EXAM due on 06/15/2022 LDL CHOLESTEROL due on 06/19/2022 Navigation Signature: Annie Gonzales MA August 02, 2022 12:34 PM documented in this encounterMercy Health [facility]04-27-2023 Miscellaneous Notes* Telephone Encounter - Vale Frias LPN - 07/26/2022 1:47 PM EDT Completed and faxed as requested. * Telephone Encounter - Ceci Richard - 07/26/2022 11:49 AM EDT Received certificate of medical necessity from [facility] for medicare and medicaid. Placed on Nestor's desk for review, completion and signature. Needs faxed back to [phone] Ceci Richard documented in this encounterMer[facility]04-26-2023 NotePatient Outreach (INTMMN) LAYNE SPRAGUE ([id number]) 1960 F Date Time Provider Department 07/25/22 DENNYS BAEZ During your visit today, we recorded the following information about you: Allergies As of Date: 07/25/2022 Noted Allergy Reaction METFORMIN 10/09/2018 8 - GI Upset Date Reviewed: 02/09/2022 Reviewed by: Jacquie Cox OD - Fully Assessed Visit Diagnosis:Encounter for screening mammogram for breast cancer [Z12.31] Order(s):[facility] SCREENING [[id number]] Order #: [id number] FUTURE Prescriptions as of 07/30/2022 - cloNIDine HCl (CATAPRES) 0.3 mg tablet Take 1 tablet by mouth three times daily. - flash glucose sensor (FREESTYLE KRISTA 14 DAY SENSOR) kit Use four times a day and as needed for blood sugar monitoring - potassium chloride (K-TAB) 10 mEq tablet Take 10 mEq by mouth every morning. - MULTIVITAMIN ORAL Take by mouth. - ondansetron orally disintegrating (ZOFRAN ODT) 4 mg disintegrating tablet Take 1 tablet by mouth every 8 hours as needed. - pregabalin (LYRICA) 75 mg capsule Take 1 capsule by mouth twice daily for 30 days. - calcium acetate,phosphat bind, (PHOSLO) 667 mg capsule Take 667 mg by mouth three times daily. - furosemide (LASIX) 20 mg tablet Take 1 tablet by mouth. - furosemide (LASIX) 40 mg tablet Take 1 tablet by mouth. - Omeprazole Magnesium 20 mg tablet Take 1 tablet by mouth. - hydrALAZINE (APRESOLINE) 100 mg tablet Take 1 tablet by mouth. - dilTIAZem CD (CARDIZEM CD) 240 mg 24 hr capsule Take 1 capsule by mouth once daily. - midodrine (PROAMATINE) 2.5 mg tablet Take 1 tablet by mouth twice daily. Hold for systolic BP above 180 - insulin glargine (LANTUS SOLOSTAR, BASAGLAR KWIKPEN) 100 unit/mL (3 mL) Inject 35 Units subcutaneously daily at bedtime. - insulin lispro (HUMALOG KWIKPEN INSULIN) 100 unit/mL 8 units sq TID, and sliding scale. Maximum 50u per day - ferrous sulfate 325 mg (65 mg iron) tablet Take 325 mg by mouth daily with breakfast. - sertraline (ZOLOFT) 50 mg tablet Take 1 tablet by mouth once daily. - atorvastatin (LIPITOR) 40 mg tablet Take 1 tablet by mouth daily at bedtime. - insulin needles, DISPOSABLE, (PEN NEEDLE) 31 gauge x 5/16 Use one needle per dose. Twice per day. - blood sugar diagnostic (BLOOD GLUCOSE TEST) test strip Test blood sugar(s) 4 times daily. Dx: Other DM Code E13.65 Insulin: Yes - Lancets lancets Test blood sugar(s) 4 times daily. Dx: Other DM Code E13.65 Insulin: Yes - blood sugar diagnostic (FREESTYLE LITE STRIPS) test strip Test blood sugar(s) 4 times daily. Insulin: Yes - alcohol swabs (ALCOHOL PADS) Use to prior to checking blood sugar 4 times daily. - polyethylene glycol 3350 (MIRALAX) 17 gram/dose powder For colonoscopy prep - bisacodyl EC (DULCOLAX, BISACODYL,) 5 mg EC tablet Take 1 tablet by mouth as directed. Take two (2) each time, as explained on the instruction sheet provided. - magnesium oxide (MAG-OX) 400 mg (241.3 mg magnesium) tablet Take 1 tablet by mouth twice daily. - flash glucose scanning reader ([employer] DevicesSTYLE KRISTA 14 DAY READER) 1 Each four times daily. - traMADol (ULTRAM) 50 mg tablet Take 50 mg by mouth every 8 hours as needed. - meclizine (ANTIVERT) 25 mg tab Take 1 tablet by mouth every 6 hours as needed (dizziness). - Miscellaneous Medical Supply (BLOOD PRESSURE CUFF) misc Use as directed. - Blood Pressure Monitor kit Use as directed - COMPOUNDED PRESCRIPTION Quad cane - blood sugar diagnostic (BLOOD GLUCOSE TEST) test strip Test blood sugar(s) 4 times daily. Dx: Type 2 DM - Uncontrolled E11.65 Insulin: Yes - aspirin 81 mg chewable tablet Take 1 tablet by mouth once daily. - Lancets lancets Test blood sugar(s) 4 times daily. Dx: Type 2 DM - Uncontrolled E11.65 Insulin: Yes Meds Comments as of 06/19/2022: June 19, 2022: Patient reports started Dialysis early May . Jannette Khan RN Problem List As Of Date 07/25/2022 Noted Resolved Migraine without aura [G43.009] 08/19/2008 10/31/2018 Burn erythema of hand [T23.109A] 01/12/2009 10/29/2018 Genital herpes [A60.00] 10/28/2009 10/29/2018 Diabetes mellitus type II 10/15/2011 10/29/2018 Biliary colic [K80.50] 01/24/2012 11/19/2012 Headache(784.0) [R51] 04/09/2012 10/29/2018 Vertigo of central origin [H81.4] 04/24/2012 10/29/2018 Peripheral vertigo [H81.399] 04/24/2012 10/29/2018 Pelvic pain in female [R10.2] 07/29/2012 10/29/2018 Abdominal pain, other specified site [R10.9] 07/29/2012 10/29/2018 Orthostatic hypotension [I95.1] 09/10/2012 Gastroparesis due to DM (HCC) [E11.43, K31.84] 09/17/2012 10/29/2018 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 * Telephone Encounter - Ceci Richard - 07/24/2022 10:48 AM EDT Received CMN from for lift chair. Placed on Dr. Baez's desk for review, completion and signature. Needs faxed back to [phone]. Ceci Richard documented in this encounterMercy [facility]04-25-2023 Miscellaneous Notes* Telephone Encounter - Katerine Vaughan LPN - 07/24/2022 5:04 PM EDT Form faxed to [phone] number on form * Telephone Encounter - Dennys Baez MD - 07/24/2022 4:59 PM EDT completed * Telephone Encounter - Da Saucedo LPN - 07/23/2022 6:15 PM EDT Type of form: Physician's Orders Form received via fax When form is completed, Fax form to [phone] Form has been forwarded to Physician Mailbox: Dr. Nestor Saucedo LPN documented in this encounterMercy Health [facility]04-05-2023 Miscellaneous Notes* Telephone Encounter - Vale Frias LPN - 07/04/2022 12:25 PM EDT Completed and faxed. * Telephone Encounter - Da Saucedo LPN - 07/03/2022 9:39 AM EDT Type of form: Home Health Care Orders Form received via fax When form is completed, Fax form to [phone] Form has been forwarded to Physician Mailbox: Dr. Nestor Saucedo LPN documented in this encounterMercy Health [facility]04-03-2023 Miscellaneous Notes* Telephone Encounter - Evangelina Hui RN - 07/02/2022 5:05 PM EDT Patient calling to request referral to Endocrinology be faxed to Dr. Buddy Carbajal @ [facility]. Referral and OV notes sent with Demographic sheet. Evangelina Hui RN documented in this encounterMercy Health [facility]03-27-2023 Miscellaneous Notes* Telephone Encounter - Vale Frias LPN - 06/25/2022 12:31 PM EDT Left detailed message on secure [employer]. * Telephone Encounter - Dennys Baez MD - 06/25/2022 12:07 PM EDT ok * Telephone Encounter - Jannette Fernandez RN - 06/25/2022 11:59 AM EDT Marcus PT from [facility] calls and states that they were unable to see patient for physical therapy evaluation last week. Marcus states that they need order to be able to see patient this week for physical therapy. Please review and advise, Jannette Fernandez RN documented in this encounterMercy Health [facility]03-25-2023 NotePatient Outreach (PHPOHE) LAYNE SPRAGUE ([id number]) 1960 F Date Time Provider Department 06/23/22 DENNYS BAEZ PHPOHE During your visit today, we recorded the following information about you: Nataly Lakhani Pharm-T 07/24/2022 3:00 AM Signed Layne Hernandezkalee is identified through a medication adherence outreach initiative based on pharmacy claims data from [employer] (insurer) for Statin medication(s). Patient is reviewed 06/23/22 due to medication adherence concerns with the following medications (name, strength, sig): Lipitor 40 mg 1 tablet every day. Per data/report, last fill date and days supply: NA Per reconcile dispense, last fill date and days supply: 05/21/2022 for 9 days Per call to pharmacy, last picked up date and days supply: NA Contacted patient: No answer; left generic VM Nataly Olivares Cortelli Pharm-T Allergies As of Date: 06/23/2022 Noted Allergy Reaction METFORMIN 10/09/2018 8 - GI Upset Date Reviewed: 02/09/2022 Reviewed by: Jacquie Cox OD - Fully Assessed Reason for Visit: Allied Health Visit [5] Cmt: Medication Adherence Outreach Prescriptions as of 07/24/2022 - cloNIDine HCl (CATAPRES) 0.3 mg tablet Take 1 tablet by mouth three times daily. - flash glucose sensor (FREESTYLE KRISTA 14 DAY SENSOR) kit Use four times a day and as needed for blood sugar monitoring - potassium chloride (K-TAB) 10 mEq tablet Take 10 mEq by mouth every morning. - MULTIVITAMIN ORAL Take by mouth. - ondansetron orally disintegrating (ZOFRAN ODT) 4 mg disintegrating tablet Take 1 tablet by mouth every 8 hours as needed. - pregabalin (LYRICA) 75 mg capsule Take 1 capsule by mouth twice daily for 30 days. - calcium acetate,phosphat bind, (PHOSLO) 667 mg capsule Take 667 mg by mouth three times daily. - furosemide (LASIX) 20 mg tablet Take 1 tablet by mouth. - furosemide (LASIX) 40 mg tablet Take 1 tablet by mouth. - Omeprazole Magnesium 20 mg tablet Take 1 tablet by mouth. - hydrALAZINE (APRESOLINE) 100 mg tablet Take 1 tablet by mouth. - dilTIAZem CD (CARDIZEM CD) 240 mg 24 hr capsule Take 1 capsule by mouth once daily. - midodrine (PROAMATINE) 2.5 mg tablet Take 1 tablet by mouth twice daily. Hold for systolic BP above 180 - insulin glargine (LANTUS SOLOSTAR, BASAGLAR KWIKPEN) 100 unit/mL (3 mL) Inject 35 Units subcutaneously daily at bedtime. - insulin lispro (HUMALOG KWIKPEN INSULIN) 100 unit/mL 8 units sq TID, and sliding scale. Maximum 50u per day - ferrous sulfate 325 mg (65 mg iron) tablet Take 325 mg by mouth daily with breakfast. - sertraline (ZOLOFT) 50 mg tablet Take 1 tablet by mouth once daily. - atorvastatin (LIPITOR) 40 mg tablet Take 1 tablet by mouth daily at bedtime. - insulin needles, DISPOSABLE, (PEN NEEDLE) 31 gauge x 5/16 Use one needle per dose. Twice per day. - blood sugar diagnostic (BLOOD GLUCOSE TEST) test strip Test blood sugar(s) 4 times daily. Dx: Other DM Code E13.65 Insulin: Yes - Lancets lancets Test blood sugar(s) 4 times daily. Dx: Other DM Code E13.65 Insulin: Yes - blood sugar diagnostic (FREESTYLE LITE STRIPS) test strip Test blood sugar(s) 4 times daily. Insulin: Yes - alcohol swabs (ALCOHOL PADS) Use to prior to checking blood sugar 4 times daily. - polyethylene glycol 3350 (MIRALAX) 17 gram/dose powder For colonoscopy prep - bisacodyl EC (DULCOLAX, BISACODYL,) 5 mg EC tablet Take 1 tablet by mouth as directed. Take two (2) each time, as explained on the instruction sheet provided. - magnesium oxide (MAG-OX) 400 mg (241.3 mg magnesium) tablet Take 1 tablet by mouth twice daily. - flash glucose scanning reader (FREESTYLE KRISTA 14 DAY READER) 1 Each four times daily. - traMADol (ULTRAM) 50 mg tablet Take 50 mg by mouth every 8 hours as needed. - meclizine (ANTIVERT) 25 mg tab Take 1 tablet by mouth every 6 hours as needed (dizziness). - Miscellaneous Medical Supply (BLOOD PRESSURE CUFF) misc Use as directed. - Blood Pressure Monitor kit Use as directed - COMPOUNDED PRESCRIPTION Quad cane - blood sugar diagnostic (BLOOD GLUCOSE TEST) test strip Test blood sugar(s) 4 times daily. Dx: Type 2 DM - Uncontrolled E11.65 Insulin: Yes - aspirin 81 mg chewable tablet Take 1 tablet by mouth once daily. - Lancets lancets Test blood sugar(s) 4 times daily. Dx: Type 2 DM - Uncontrolled E11.65 Insulin: Yes Meds Comments as of 06/19/2022: June 19, 2022: Patient reports started Dialysis early May . Jannette Khan RN Problem List As Of Date 06/23/2022 Noted Resolved Migraine without aura [G43.009] 08/19/2008 10/31/2018 Burn erythema of hand [T23.109A] 01/12/2009 10/29/2018 Genital herpes [A60.00] 10/28/2009 10/29/2018 Diabetes mellitus type II 10/15/2011 10/29/2018 Biliary colic [K80.50] 01/24/2012 11/19/2012 Headache(784.0) [R51] 04/09/2012 10/29/2018 Vertigo of central origin [H81.4] 04/24/2012more content not included)... [facility]03-25-2023 NoteHNO ID: [id number] Author: Nataly Lakhani Pharm-T Service: ? Author Type: ? Type: Progress Notes Filed: 07/24/2022 3:00 AM Note Text: Layne Sprague is identified through a medication adherence outreach initiative based on pharmacy claims data from [employer] (insurer) for Statin medication(s). Patient is reviewed 06/23/22 due to medication adherence concerns with the following medications (name, strength, sig): Lipitor 40 mg 1 tablet every day. Per data/report, last fill date and days supply: NA Per reconcile dispense, last fill date and days supply: 05/21/2022 for 9 days Per call to pharmacy, last picked up date and days supply: NA Contacted patient: No answer; left generic VM [facility] History of Present illness Narrative* Nataly Lakhani Pharm-T - 06/23/2022 11:10 AM EDT Layne Sprague is identified through a medication adherence outreach initiative based on pharmacy claims data from [employer] (insurer) for Statin medication(s). Patient is reviewed 06/23/22 due to medication adherence concerns with the following medications (name, strength, sig): Lipitor 40 mg 1 tablet every day. Per data/report, last fill date and days supply: NA Per reconcile dispense, last fill date and days supply: 05/21/2022 for 9 days Per call to pharmacy, last picked up date and days supply: NA Contacted patient: No answer; left generic VM Nataly Lakhani Pharm-T documented in this encounterMercy Health [facility]03-24-2023 NoteHNO ID: [id number] Author: Usha Pastrana PA-C Service: ? 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 Baez who told her to go to the ER. Hospitalist told her to go to the hospital she had another episode of garbled speech. 06/18/2022 phoned the office complaining of garbled speech was told to go to the emergency room by Jannette Fernandez RN. Prior messages on that train identified that she was having fluctuating blood sugars from 30-249. Patient has consult only for endocrinology which was sent to Dr. Carbajal but apparently patient did not call to make appointment and is waiting for Dr. Carbajal's office did contact her which is not likely to happen. Patient did adjust her on insulin dropping her Lantus to 10 units. Same communication training identified Dr. Rutherford's office canceled her fistula creation for dialysis due to fluctuating blood sugars. Patient was instructed to bring her ZIO monitor to the office visit. Patient reports that at breakfast her sugar was 175, lunch 178, dinner 300. Patient took 8 units of Humalog each time. Patient states that she did not eat or drink since 6 pm last night. Patient states that at 2:02 in the morning her blood sugar red low, and then it did read 30. Patient ate yogurt, 2 glasses of apple juice, a Twinkie, a mini muffin pack, and 2 Oreos. Patient states that 5 am her sugar was 85. Patient did not take her morning Humalog this morning. Patient's current blood sugar is 249. Patient admits that she did not eat a snack before bed last night. Patient had checked her sugar frequently yesterday due to worrying about having procedure today. 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 Yes Medication side effects: Medical Issues / Complications: hypertension, hyperlipidemia, peripheral neuropathy, autonomic neuropathy, and cardiovascular disease Checking blood sugars at home? Yes. Average last week average last month Morning 178 187 Lunch 173 180 Late afternoon 197 205 Bedtime 251 221 Watching diet? Yes, eating well, following guideline for renal Physical Activity: getting PT in home, doing some chores around house Hypoglycemic spells? Yes Any visual disturbance? Yes Chest pain? No New numbness, tingling or loss of sensation? Chronic in legs Any recent foot problems, sores or rashes? No Any recent or sudden weight loss? Yes, associated with dialysis Change in urination? No. If yes: Any recent illness? No HBA1C: Hemoglobin A1C (%) Date Value 02/09/2022 9.6 01/29/2022 10.1 06/19/2021 9.6 12/27/2020 9.5 ) CMP: Glucose 212 02/09/2022 BUN 41 02/09/2022 Creatinine 2.63 02/09/2022 Sodium 138 02/09/2022 Potassium 5.1 02/09/2022 Chloride 105 02/09/2022 CO2 23 02/09/2022 Protein, Total 6.7 06/19/2021 Albumin 3.6 06/19/2021 Calcium 8.9 02/09/2022 Alkaline Phosphatase 205 06/19/2021 Bilirubin, Total 0.4 06/19/2021 AST 27 06/19/2021 ALT 28 06/19/2021 Last 2 Encounter Wt Readings: Date: Wt: 02/09/2022 90.7 kg (200 lb) 01/16/2022 82.6 kg (182 lb) Acute on chronic combined systolic and diastolic chf (congestive heart failure) (formerly [facility]) Ckd (chronic kidney disease) stage 4, gfr 15-29 ml/min (formerly [facility]) Hypertension Cardiovascular interval hx: [facility] 02/14/2022 echocardiogram [facility]: LV with mild concentric LVH, normal size, mild global left ventricular systolic dysfunction, EF 45%, diagnosis function indeterminate. RV size WNL LA and RA normal size 1+ MVi. mild TVi. PAP 37mmHg Normal great vessels, no pericardial effusion. 04/22/2019 stress test echo without contrast for chest pain at [facility]: EF 65%, no regional wall motion abnormalities, response to dobutamine 81% of maximum predicted heart rate, no ST or T wave changes to suggest ischemia Current meds: Clonidine 0.3 mg 3 times daily Atorvastatin 40 mg daily at bedtime Use of NTG: No Chest pain, arm, jaw pain, neck, or upper back pain suggestive of angina: No. SOB: No Dyspnea with exertion: No orthopnea: No Cough : No racing or irregular heartbeats: No palpitations: No syncopal sx: No Headache: No Unexplainable fatigue No Leg swelling: No Nausea: No diaphoresis: No Heartburn: No Claudication: No Smoking: Yes Following Low cholesterol, high fiber diet? Yes If on (more content not included)...[facility]03-24-2023 Instructions* Patient Instructions* Usha Pastrana PA-C - 06/22/2022 12:[address] Buddy Carbajal [facility] Call for consult for endocrinology [phone] documented in this encounterMercy Health [facility]03-24-2023 History of Present illness Narrative* Usha Pastrana PA-C - 06/22/2022 11:00 AM EDT 61 year old female with c/o 06/19/2022 virtual visit with internal medicine Cory Cooper: Documents several episodes of garbled speech in the prior 3 days, previously at hemodialysis, had spoken with Dr. Baez who told her to go to the ER. Hospitalist told her to go to the hospital she had another episode of garbled speech. 06/18/2022 phoned the office complaining of garbled speech was told to go to the emergency room by Jannette Fernandez RN. Prior messages on that train identified that she was having fluctuating blood sugars from 30-249. Patient has consult only for endocrinology which was sent to Dr. Carbajal but apparently patient did not call to make appointment and is waiting for Dr. Carbajal's office did contact her which is not likely to happen. Patient did adjust her on insulin dropping her Lantus to 10 units. Same communication training identified Dr. Rutherford's office canceled her fistula creation for dialysis due to fluctuating blood sugars. Patient was instructed to bring her ZIO monitor to the office visit. Patient reports that at breakfast her sugar was 175, lunch 178, dinner 300. Patient took 8 units ofHumalog each time. Patient states that she did not eat or drink since 6 pm last night. Patient states that at 2:02 in the morning her blood sugar red low, and then it did read 30. Patient ate yogurt,2 glasses of apple juice, a Twinkie, a mini muffin pack, and 2 Oreos. Patient states that 5 am her sugar was 85. Patient did not take her morning Humalog this morning. Patient's current blood sugar is 249. Patient admits that she did not eat a snack before bed last night. Patient had checked her sugar frequently yesterday due to worrying about having procedure today. 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 Yes Medication side effects: Medical Issues / Complications: hypertension, hyperlipidemia, peripheral neuropathy, autonomic neuropathy, and cardiovascular disease Checking blood sugars at home? Yes. Average last week average last month Morning 178 187 Lunch 173 180 Late afternoon 197 205 Bedtime 251 221 Watching diet? Yes, eating well, following guideline for renal Physical Activity: getting PT in home, doing some chores around house Hypoglycemic spells? Yes Any visual disturbance? Yes Chest pain? No New numbness, tingling or loss of sensation? Chronic in legs Any recent foot problems, sores or rashes? No Any recent or sudden weight loss? Yes, associated with dialysis Change in urination? No. If yes: Any recent illness? No HBA1C: Hemoglobin A1C (%) Date Value 02/09/2022 9.6 01/29/2022 10.1 06/19/2021 9.6 12/27/2020 9.5 ) CMP: Glucose 212 02/09/2022 BUN 41 02/09/2022 Creatinine 2.63 02/09/2022 Sodium 138 02/09/2022 Potassium 5.1 02/09/2022 Chloride 105 02/09/2022 CO2 23 02/09/2022 Protein, Total 6.7 06/19/2021 Albumin 3.6 06/19/2021 Calcium 8.9 02/09/2022 Alkaline Phosphatase 205 06/19/2021 Bilirubin, Total 0.4 06/19/2021 AST 27 06/19/2021 ALT 28 06/19/2021 Last 2 Encounter Wt Readings: Date: Wt: 02/09/2022 90.7 kg (200 lb) 01/16/2022 82.6 kg (182 lb) Acute on chronic combined systolic and diastolic chf (congestive heart failure) (formerly [facility]) Ckd (chronic kidney disease) stage 4, gfr 15-29 ml/min (formerly [facility]) Hypertension Cardiovascular interval hx: [facility] cardiology 02/14/2022 echocardiogram [facility]: LV with mild concentric LVH, normal size, mild global left ventricular systolic dysfunction, EF 45%, diagnosis function indeterminate. RV size WNL LA and RA normal size 1+ MVi. mild TVi. PAP 37mmHg Normal great vessels, no pericardial effusion. 04/22/2019 stress test echo without contrast for chest pain at [facility]: EF 65%, no regional wall motion abnormalities, response to dobutamine 81% of maximum predicted heart rate, no ST or T wave changes to suggest ischemia Current meds: Clonidine 0.3 mg 3 times daily Atorvastatin 40 mg daily at bedtime Use of NTG: No Chest pain, arm, jaw pain, neck, or upper back pain suggestive of angina: No. SOB: No Dyspnea with exertion: No orthopnea: No Cough : No racing or irregular heartbeats: No palpitations: No syncopal sx: No Headache: No Unexplainable fatigue No Leg swelling: No Nausea: No diaphoresis: No Heartburn: No Claudication: No Smoking: Yes Following Low cholesterol, high fiber diet? Yes If on statin: muscle aches? No If on statin: GI sx or diarrhea? No Anemia, chronic disease Malnutrition of moderate degree (formerly [facility]) Physical debility Current medications: Ferrous sulfate 325 mg daily with breakfast None new from last visit. Depression? Current medications: Sertraline 50 mg daily Mood is fine Feels not the sme person Troubel focusing Starts something and doesn't complete, goes to something else. Tramadol: SO states not taking a night, once last week. Only when she asks. . Having wounds checked weekly with [facility]. Treated with Betadine. HISTORIES FAMILY HISTORY Problem Relation Age of Onset Hypertension Mother Lipids Mother Cancer Father Lymphoma, Leukemia Emphysema Father Cataract Father Diabetes Paternal Grandmother Breast Cancer Paternal Aunt PAST MEDICAL HISTORY Diagnosis Date Concussion 09/2008 - from fall at work Diabetes (HCC) Gastroparesis due to DM ([facility]) 09/17/2012 Genital herpes 10/28/2009 Migraine without aura 08/19/2008 Orthostasis Pelvic pain in female 07/29/2012 PMH - PAST MEDICAL HISTORY OF TMJ Vertigo of central origin 04/24/2012 PAST SURGICAL HISTORY Procedure Laterality Date COLONOSCOPY FLX DX W/COLLJ SPEC WHEN PFRMD 12/24/2012 Colonoscopy ESOPHAGOGASTRODUODENOSCOPY TRANSORAL DIAGNOSTIC 01/31/2012 EGD LAPS SURG CHOLECYSTECTOMY W/CHOLANGIOGRAPHY 02/01/2012 Normal IOC PAST SURGICAL HISTORY OF TMJ replacements x 2 PAST SURGICAL HISTORY OF Jaw surgery PAST SURGICAL HISTORY OF PAST SURGICAL HISTORY OF left hip pinned Social History Tobacco Use Smoking status: Never Smokeless tobacco: Never Vaping Use Vaping Use: Never used Substance Use Topics Alcohol use: No Drug use: No ACTIVE PROBLEM LIST Orthostatic Hypotension Nohelia (Latent Autoimmune Diabetes in Adults), Managed As Type 1 (Hcc) Hypertension Ataxia Physical Debility Malnutrition of Moderate Degree (Hcc) Type 1 Diabetes Mellitus With Proliferative Retinopathy and Macular Edema ([facility]) Chronic Pain Syndrome Stage 3b Chronic Kidney Disease ([facility]) Autonomic Neuropathy Current Outpatient Medications Medication Sig Dispense Refill potassium chloride (KLOR-CON 10) 10 mEq tablet Take 10 mEq by mouth every morning. MULTIVITAMIN ORAL Take by mouth. ondansetron orally disintegrating (ZOFRAN ODT) 4 mg disintegrating tablet Take 1 tablet by mouth every 8 hours as needed. 30 tablet 1 pregabalin (LYRICA) 75 mg capsule Take 1 capsule by mouth twice daily for 30 days. 60 capsule 0 calcium acetate,phosphat bind, (PHOSLO) 667 mg capsule Take 667 mg by mouth three times daily. furosemide (LASIX) 20 mg tablet Take 1 tablet by mouth. furosemide (LASIX) 40 mg tablet Take 1 tablet by mouth. Omeprazole Magnesium 20 mg tablet Take 1 tablet by mouth. hydrALAZINE (APRESOLINE) 100 mg tablet Take 1 tablet by mouth. dilTIAZem CD (CARDIZEM CD) 240 mg 24 hr capsule Take 1 capsule by mouth once daily. (Patient takingdifferently: Take 180 mg by mouth once daily.) 30 capsule 11 flash glucose sensor (FREESTYLE KRISTA 14 DAY SENSOR) kit Use four times a day and as needed for blood sugar monitoring 2 Kit 11 midodrine (PROAMATINE) 2.5 mg tablet Take 1 tablet by mouth twice daily. Hold for systolic BP [id number] insulin glargine (LANTUS SOLOSTAR, BASAGLAR KWIKPEN) 100 unit/mL (3 mL) Inject 35 Units subcutaneously daily at bedtime. (Patient taking differently: Inject 10 Units subcutaneously daily at bedtime.)12 Each 3 insulin lispro (HUMALOG KWIKPEN INSULIN) 100 unit/mL 8 units sq TID, and sliding scale. Maximum 50uper day 12 Each 5 ferrous sulfate 325 mg (65 mg iron) tablet Take 325 mg by mouth daily with breakfast. cloNIDine HCl (CATAPRES) 0.3 mg tablet Take 1 tablet by mouth three times daily. 90 tablet 5 sertraline (ZOLOFT) 50 mg tablet Take 1 tablet by mouth once daily. 30 tablet 5 atorvastatin (LIPITOR) 40 mg tablet Take 1 tablet by mouth daily at bedtime. 30 tablet 11 insulin needles, DISPOSABLE, (PEN NEEDLE) 31 gauge x 5/16 Use one needle per dose. Twice per day. 200 Each 3 blood sugar diagnostic (BLOOD GLUCOSE TEST) test strip Test blood sugar(s) 4 times daily. Dx: OtherDM Code E13.65 Insulin: Yes 50 Strip 11 Lancets lancets Test blood sugar(s) 4 times daily. Dx: Other DM Code E13.65 Insulin: Yes 100 Each 11 blood sugar diagnostic (FREESTYLE LITE STRIPS) test strip Test blood sugar(s) 4 times daily. Insulin: Yes (Patient taking differently: Test blood sugar(s) 4 times daily. Insulin: Yes) 400 Strip 3 alcohol swabs (ALCOHOL PADS) Use to prior to checking blood sugar 4 times daily. 400 Each 3 polyethylene glycol 3350 (MIRALAX) 17 gram/dose powder For colonoscopy prep 235 g 0 bisacodyl EC (DULCOLAX, BISACODYL,) 5 mg EC tablet Take 1 tablet by mouth as directed. Take two (2)each time, as explained on the instruction sheet provided. 4 tablet 0 magnesium oxide (MAG-OX) 400 mg (241.3 mg magnesium) tablet Take 1 tablet by mouth twice daily. 60 tablet 2 flash glucose scanning reader (FREESTYLE KRISTA 14 DAY READER) 1 Each four times daily. 1 Each 0 traMADol (ULTRAM) 50 mg tablet Take 50 mg by mouth every 8 hours as needed. meclizine (ANTIVERT) 25 mg tab Take 1 tablet by mouth every 6 hours as needed (dizziness). 30 tablet 1 Miscellaneous Medical Supply (BLOOD PRESSURE CUFF) [facility] Use as directed. 1 Each 0 Blood Pressure Monitor kit Use as directed 1 Kit 0 COMPOUNDED PRESCRIPTION Quad cane 1 Each 0 blood sugar diagnostic (BLOOD GLUCOSE TEST) test strip Test blood sugar(s) 4 times daily. Dx: Type 2 DM - Uncontrolled E11.65 Insulin: Yes 150 Strip 3 aspirin 81 mg chewable tablet Take 1 tablet by mouth once daily. 30 tablet Lancets lancets Test blood sugar(s) 4 times daily. Dx: Type 2 DM - Uncontrolled E11.65 Insulin: [id number] Each 3 No current facility-administered medications for this visit. HEPATITIS C SCREENING Never done HIV SCREENING Never done BP CONTROLLED (<130/80) Never done PNEUMOCOCCAL(2 - PCV) due on 01/12/2010 SHINGRIX VACCINE(1 of 2) Never done PAP TESTING due on 07/29/2017 HPV TESTING due on 07/29/2017 DTAP,TDAP,TD(4 - Td or Tdap) due on 01/12/2019 MAMMOGRAM due on 07/06/2021 DEPRESSION ASSESSMENT Never done HBA1C due on 05/12/2022 DIABETIC FOOT EXAM due on 06/15/2022 LDL CHOLESTEROL due on 06/19/2022 EXAM: BP 150/76 Pulse 60 Resp 18 Wt 66.7 kg (147 lb) LMP 09/30/2008 SpO2 97% BMI 24.46 kg/m Pleasant adult woman in no acute distress. Alert and oriented all spheres. Speech is slightly slurred but unchanged from last visit, cheerful, and no change in cognition from last visit. cognition. Speech normal. No deficits to learning or comprehension. Skin warm, dry, pink to lips and nailbeds. Normal turgor. Respirations regular and unlabored. HEENT: NCAT. No scleral icterus or conjunctival injection. TM's clear. Nose and oropharynx free from injection or lesion. Oral membranes moist and pink. No cervical lymph nodes. Thyroid non-tender, no masses, or enlargement. Carotids pulses 2+/4+ without bruits. No JVD with HOB at 30 degrees. Chest is normal shape. Lungs are clear to all olivo with good air exchange through out. HRRR without murmur or gallop. No lifts, heaves, or rubs. Extrem: no clubbing or cyanosis. Edema: none. Extremities are warm and pink with prompt capillary refill. PERRLA, EOMI. No pass pointing. No pronator drift. + Ataxia, needs to hold on to a surface. No focal weakness. ASSESSMENT/PLAN: 1. Garbled speech - ICD9: 784.59, ICD10: R47.89 (primary diagnosis) Related to drop in blood sugar. Lowered basal insulin and has been better. 2. 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) - ICD9: 250.51, 362.07, 362.02, ICD10: E10.3519 - FREESTYLE KRISTA 14 DAY SENSOR KIT Complex history, non-compliance per Dr. Baez. 3. 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) - ICD9: 250.00, ICD10: E13.9 - Uncontrolled - Continue current medications - Blood glucose monitoring on a four times daily schedule - FREESTYLE KRISTA 14 DAY SENSOR KIT 4. Acute on chronic combined systolic and diastolic CHF (congestive heart failure) ([facility]) - ICD9: 428.43, 428.0, ICD10: I50.43 No evidence of CHF 5. CKD (chronic kidney disease) stage 4, GFR 15-29 ml/min ([facility]) - ICD9: 585.4, ICD10: N18.4 - eGFR: Worsening - Follow up with nephrology Schedule for fistula Dr. Bon Krueger delayed due to issues with garbled speech and low blood sugars. 6. Hypertension - ICD9: 401.1, ICD10: I10 - suboptimal control - Continue current medication(s) - Recommended regular aerobic exercise. - Goal of BP <130/80 7. Anemia, chronic disease - ICD9: 285.29, ICD10: D63.8 No new labs from last visit (external entry from [facility]) 8. Malnutrition of moderate degree ([facility]) - ICD9: 263.0, ICD10: E44.0 Unclear as weight loss likely r/t dialysis 9. Ataxia - ICD9: 781.3, ICD10: R27.0 R/t autonomic neuropathy 10. Physical debility - ICD9: 799.3, ICD10: R53.81 Chronic, receiving home PT and OT. Patient identifies I need to communicate with Dr. Bon Krueger for dialysis shunt/fistula surgery. She is a brittle diabetic, diabetes is not ideally controlled but close to her best baseline over 10 years (I have limited experience with this patient). I see no barriers otherwise to proceeding with local anesthesia or block for procedure Usha Pastrana PA-C documented in this [facility]Mer[facility] NoteHNO ID: [id number] Author: Cory Cooper MD Service: ? Author Type: Physician Type: Progress Notes Filed: 06/19/2022 6:37 PM Note Text: Virtualist Progress Note Triage Call Triage source: Triage Call (Nurse Dyer Helper, [facility] Triage, [facility] Phone Triage) Was patient downgraded (i.e. disposition other than go to the ED was advised)? Yes Mode of contact (phone call, [email or web address], [facility], [facility], Skype, other): phone History/Physical Exam: Started HD early this month. The patient has had several episodes of garbled speech in the past 3 days. While at hemodialysis today, she had another episode, so the dialysis staff told her to contact her primary care provider. Review of of epic shows that she contacted her primary care provider earlier today to discuss her symptoms. The records show that she was told to go to the emergency room if she had further episodes. Pt called this evening to discuss results of the conversation she had with her PCP earlier. The patient stated that her speech was currently normal. I reviewed the conversation she had with her office earlier today. I told her that if she had another episode of garbled speech that she should go emergency room. The patient was able to verbalize understanding. She has appointments with home care providers tomorrow and with her PCP on Saturday. Nurse Triage Disposition (If call is from [facility], [facility] nurse triage, or an [facility], the disposition is Go to ED Now ): Go to ED Now (or PCP Triage) Virtualist Recommended Disposition: as above Signed in as Primary Virtualist, Secondary Virtualist, or [facility] Telehealth provider: Secondary SIGNATURE: Cory Cooper MD PATIENT NAME: Layne Sprague DATE: June 19, 2022 [facility]03-21-2023 History of Present illness Narrative* Cory Cooper MD - 06/19/2022 6:17 PM EDT Virtualist Progress Note Triage Call Triage source: Triage Call (Nurse Dyer Helper, [facility] Triage, [facility] Phone Triage) Was patient downgraded (i.e. disposition other than go to the ED was advised)? Yes Mode of contact (phone call, [email or web address], [facility], [facility], Skype, other): phone History/Physical Exam: Started HD early this month. The patient has had several episodes of garbled speech in the past 3 days. While at hemodialysis today, she had another episode, so the dialysis staff told her to contact her primary care provider. Review of of epic shows that she contacted her primary care provider earlier today to discuss her symptoms. The records show that she was told to go to the emergency room if she had further episodes. Pt called this evening to discuss results of the conversation she had with her PCP earlier. The patient stated that her speech was currently normal. I reviewed the conversation she had with her office earlier today. I told her that if she had another episode of garbled speech that she should go emergency room. The patient was able to verbalize understanding. She has appointments with home care providers tomorrow and with her PCP on Saturday. Nurse Triage Disposition (If call is from [facility], [facility] nurse triage, or an [facility], the disposition is Go to ED Now ): Go to ED Now (or PCP Triage) Virtualist Recommended Disposition: as above Signed in as Primary Virtualist, Secondary Virtualist, or [facility] Telehealth provider: Secondary SIGNATURE: Cory Cooper MD PATIENT NAME: Layne Sprague DATE: June 19, 2022 documented in this encounterMer[facility]03-21-2023 Miscellaneous Notes* Telephone Encounter - Jannette Khan RN - 06/19/2022 5:52 PM EDT Reason for Call: Returning Dr. Baez's office call related to loss of/garbled speech. Patient does not remember speaking with office today. Outcome: Recommended patient Go to ED NOW (or PCP triage), patient states she has a fiance at home,but no transportation, wishes to speak to PCP market asset protection manager, Dr. Cooper who recommended ED if she has another episode. Reason for Disposition [1] Loss of speech or garbled speech AND [2] sudden onset AND [3] brief (now gone) Answer Assessment - Initial Assessment Questions 1. SYMPTOM: - Loss of speech, unable to formulate thoughts, better today 2. ONSET: - 2 days ago and coming and going ever since 3. LAST NORMAL: - [place] normal on Saturday - Gradually building 4. PATTERN - Comes and goes - Still feels she can't get around and still having trouble thinking of words now even though it's better 5. CARDIAC SYMPTOMS: Denies chest pain, difficulty breathing, palpitations 6. NEUROLOGIC SYMPTOMS: - Generally feeling weaker than normal, typically uses a walker to get around - Speech seems garbled at times - Notes changes in speech - Confirmed Year and current president - Smile appears normal 7. OTHER SYMPTOMS: Denies any other symptoms - Patient states she has home health, OT/PT coming tomorrow at 11:30am 8. : N/A Protocols used: Neurologic Kcfysql-[id number]-CA documented in this encounterMercy [facility]03-21-2023 Miscellaneous Notes* Telephone Encounter - Jannette Fernandez RN - 06/19/2022 2:05 PM EDT Patient called and notified of Benigno's instructions. Patient voiced understanding. Patient is speaking clearly at this time. No garbled speech noted. Patient states that she is currently feeling fine. Advised patient that if she feels like her speech is bad or garbled more then sheneeds to go to ED to be evaluated. Patient voiced understanding. Patient states otherwise she will see Benigno at appointment on Saturday. Jannette Fernandez RN * Telephone Encounter - Nica Crockett Ma - 06/19/2022 1:13 PM EDT Left message for patient to return call. Nica Crockett Ma * Telephone Encounter - Usha Pastrana PA-C - 06/19/2022 12:30 PM EDT I will need to review blood sugar reports so make sure she brings Krista reader to appointment. She should keep glucose tablets present if becomes symptomatic. Thanks, Benigno Pastrana PA-C * Telephone Encounter - Daisy Matthews RN - 06/19/2022 12:16 PM EDT Pt called in stating that she had received a call back. Let Pt know that I did not see any messagesat this moment. She was asking if we had set up appointment for her with Dr Carbajal. I let her know wehad sent the information to Dr Lance office, but that they would call her or she would have to calltheir office. I tried telling her we could not make to appointment as Dr Carbajal does not work with usand she said, Oh I guess I'll just wait for them to call me. . * Telephone Encounter - Pau Emanuel RN - 06/19/2022 11:21 AM EDT Patient calling in. Reports she is currently at dialysis. Patient discussed concern about her sugars dropping. Reports her blood sugar is 103 at this time. Reports it was in the 200s this morning. Patient reports she will be seeing Benigno Pastrana this Thursday 06/22 to discuss. Patient also expressing that she feels her speech is bad at times over the last day or two. Speaking clearly, but moments noted where patient becomes emotional and tearful and speech is more mumbled. Reminded patient to discuss any current concerns to dialysis nurse and staff. (per recent notes, patient receives jugular dialysis at the hospital). Pt reports she has been talking to the nurses and the aides there. This nurse reviewed Dr. Baez recent note below with patient. Patient expresses that she would like to see Non Morse Intercept Technician Dr. Carbajal. Informed patient that demographic and referral information would besent to Dr. Carbajal's office. Patient voiced understanding. Pau Emanuel RN * Telephone Encounter - Dennys Baez MD - 06/18/2022 2:30 PM EDT Ok. . Actually looks like she had seen endo here in the past and I have told her multiple times sheneeds to be seeing endo. Referral placed again, I don't care who she sees. Ok to keep appt with Benigno but sugars are not likely to improve quickly considering they have been that way for years. * Telephone Encounter - Linda Barrientos - 06/18/2022 1:52 PM EDT Pt returned call. States she does not see Dr. Carbajal but has seen Dr. Terry. She was going to call there office however she was confused about whether she is supposed to see Dr. Carbajal instead. * Telephone Encounter - Vale Frias LPN - 06/18/2022 1:42 PM EDT Attempted to reach patient regarding endo and see when she is scheduled to see Dr Carbajal. She needs to be in touch with their office. * Telephone Encounter - Dennys Baez MD - 06/18/2022 11:26 AM EDT She is supposed to be seeing endo who is supposed to be managing. Is she is seeing them as directed, this should be handled by them, not us * Telephone Encounter - Jannette Fernandez RN - 06/18/2022 10:27 AM EDT Trina from Dr. Cisco Krueger's office calls to report that patient was set for surgery today to have fistula creation for dialysis. Surgery had to be cancelled today due patient reporting that blood sugar had dropped down in the 30s and patient states that she had to eat a whole big meal to get sugarup. Dr Krueger does not want to reschedule surgery unless patient gets sugars under control. Trina asking if patient can set up appointment with provider? Called and spoke with patient regarding blood sugars. Patient states that the average of her blood sugars is 200. Patient reports that she takes 8 units of Humalog three times a day with meals. Patient also takes 10 units of Lantus at bedtime. Patient did not take 10 units of Lantus last night before bed per presurgical instructions. Patient reports that at breakfast her sugar was 175, lunch 178, dinner 300. Patient took 8 units ofHumalog each time. Patient states that she did not eat or drink since 6 pm last night. Patient states that at 2:02 in the morning her blood sugar red low, and then it did read 30. Patient ate yogurt,2 glasses of apple juice, a Twinkie, a mini muffin pack, and 2 Oreos. Patient states that 5 am her sugar was 85. Patient did not take her morning Humalog this morning. Patient's current blood sugar is 249. Patient admits that she did not eat a snack before bed last night. Patient had checked her sugar frequently yesterday due to worrying about having procedure today. Patient did set up appointment with Benigno on Saturday per Dr. Krueger's office recommendations. Please review and advise, Jannette Fernandez RN documented in this encounterMercy [facility]03-21-2023 NotePatient Outreach (VTRIAG) LAYNE SPRAGUE ([id number]) 1960 F Date Time Provider Department 06/19/22 CORY COOPER During your visit today, we recorded the following information about you: Cory Cooper MD 06/19/2022 6:37 PM Signed Virtualist Progress Note Triage Call Triage source: Triage Call (Nurse Dyer Helper, [facility] Triage, [facility] Phone Triage) Was patient downgraded (i.e. disposition other than go to the ED was advised)? Yes Mode of contact (phone call, [email or web address], [facility], [facility], Skype, other): phone History/Physical Exam: Started HD early this month. The patient has had several episodes of garbled speech in the past 3 days. While at hemodialysis today, she had another episode, so the dialysis staff told her to contact her primary care provider. Review of of epic shows that she contacted her primary care provider earlier today to discuss her symptoms. The records show that she was told to go to the emergency room if she had further episodes. Pt called this evening to discuss results of the conversation she had with her PCP earlier. The patient stated that her speech was currently normal. I reviewed the conversation she had with her office earlier today. I told her that if she had another episode of garbled speech that she should go emergency room. The patient was able to verbalize understanding. She has appointments with home care providers tomorrow and with her PCP on Saturday. Nurse Triage Disposition (If call is from [facility], [facility] nurse triage, or an [facility], the disposition is Go to ED Now ): Go to ED Now (or PCP Triage) Virtualist Recommended Disposition: as above Signed in as Primary Virtualist, Secondary Virtualist, or [facility] Telehealth provider: Secondary SIGNATURE: Cory Cooper MD PATIENT NAME: Layne Sprague DATE: June 19, 2022 Allergies As of Date: 06/19/2022 Noted Allergy Reaction METFORMIN 10/09/2018 8 - GI Upset Date Reviewed: 02/09/2022 Reviewed by: Jacquie Cox OD - Fully Assessed Reason for Visit: Virtualist [[id number]] Prescriptions as of 06/19/2022 - potassium chloride (KLOR-CON 10) 10 mEq tablet Take 10 mEq by mouth every morning. - MULTIVITAMIN ORAL Take by mouth. - ondansetron orally disintegrating (ZOFRAN ODT) 4 mg disintegrating tablet Take 1 tablet by mouth every 8 hours as needed. - pregabalin (LYRICA) 75 mg capsule Take 1 capsule by mouth twice daily for 30 days. - calcium acetate,phosphat bind, (PHOSLO) 667 mg capsule Take 667 mg by mouth three times daily. - furosemide (LASIX) 20 mg tablet Take 1 tablet by mouth. - furosemide (LASIX) 40 mg tablet Take 1 tablet by mouth. - Omeprazole Magnesium 20 mg tablet Take 1 tablet by mouth. - hydrALAZINE (APRESOLINE) 100 mg tablet Take 1 tablet by mouth. - dilTIAZem CD (CARDIZEM CD) 240 mg 24 hr capsule Take 1 capsule by mouth once daily. - flash glucose sensor (FREESTYLE KRISTA 14 DAY SENSOR) kit Use four times a day and as needed for blood sugar monitoring - midodrine (PROAMATINE) 2.5 mg tablet Take 1 tablet by mouth twice daily. Hold for systolic BP above 180 - insulin glargine (LANTUS SOLOSTAR, BASAGLAR KWIKPEN) 100 unit/mL (3 mL) Inject 35 Units subcutaneously daily at bedtime. - insulin lispro (HUMALOG KWIKPEN INSULIN) 100 unit/mL 8 units sq TID, and sliding scale. Maximum 50u per day - ferrous sulfate 325 mg (65 mg iron) tablet Take 325 mg by mouth daily with breakfast. - cloNIDine HCl (CATAPRES) 0.3 mg tablet Take 1 tablet by mouth three times daily. - sertraline (ZOLOFT) 50 mg tablet Take 1 tablet by mouth once daily. - atorvastatin (LIPITOR) 40 mg tablet Take 1 tablet by mouth daily at bedtime. - insulin needles, DISPOSABLE, (PEN NEEDLE) 31 gauge x 5/16 Use one needle per dose. Twice per day. - blood sugar diagnostic (BLOOD GLUCOSE TEST) test strip Test blood sugar(s) 4 times daily. Dx: Other DM Code E13.65 Insulin: Yes - Lancets lancets Test blood sugar(s) 4 times daily. Dx: Other DM Code E13.65 Insulin: Yes - blood sugar diagnostic (FREESTYLE LITE STRIPS) test strip Test blood sugar(s) 4 times daily. Insulin: Yes - alcohol swabs (ALCOHOL PADS) Use to prior to checking blood sugar 4 times daily. - polyethylene glycol 3350 (MIRALAX) 17 gram/dose powder For colonoscopy prep - bisacodyl EC (DULCOLAX, BISACODYL,) 5 mg EC tablet Take 1 tablet by mouth as directed. Take two (2) each time, as explained on the instruction sheet provided. - magnesium oxide (MAG-OX) 400 mg (241.3 mg magnesium) tablet Take 1 tablet by mouth twice daily. - flash glucose scanning reader (FREESTYLE KRISTA 14 DAY READER) 1 Each four times daily. - traMADol (ULTRAM) 50 mg tablet Take 50 mg by mouth every 8 hours as needed. - meclizine (ANTIVERT) 25 mg tab Take 1 tablet by mouth every 6 hours as needed (dizziness). - Miscellaneou (more content not included)...[facility] 06-07-2022 NoteHNO ID: [id number] Author: Usha Pastrana PA-C Service: ? Author Type: Physician Winery Worker Type: Progress Notes Filed: 06/07/2022 8:05 PM Note Text: 61 year old female with c/o here for follow up Feeling a lot better since discharged from [facility], In home therapy and prison care. PT, OT at home Not in pain, once in awhile hand pain, has tramadol - doesn't use daily. Energy level poor. Able to laundry, dishes, some chores. Breathing is fine Walks on her own, dresses herself. If overworks, falls asleep. Notes some blood around port. Next dressing change tomorrow. Seeing Dr. Bon Krueger tomorrow. No SOB,, orthopnea. Props legs up Swelling a lot better than it used be. Appetite good. While in the hospital she missed appointments with pain management Dr. Steel. Lyrica prescription has run out over the last week, needs refills. She states she still has plenty of tramadol. Does not use it often. Most recent lab work from [facility]: 05/30/2022 blood sugar 292 nonfasting. 05/04/2022 NA 139-K4.5-CL 103-CO2 23.0-AG 12-BUN 63-CRE 4.1, EGFR 12.GLU 188.CA 8.5 05/30/2022 right jugular dialysis catheter placed CXR confirmation, also noted nearly resolved pleural effusions and pulmonary infiltrates. Transferred from [facility] for rehab 05/04/2022 Transferred to extended care: Assessment and plan: 1. Acute on chronic congestive heart failure with intermediate ejection fraction: Continue Lasix IV 2. Hyperkalemia corrected at this time, follow labs. 3. Type 2 diabetes with complicating care: Continue to monitor blood sugar with sliding scale insulin 4. Chronic kidney disease stage IV monitor labs, nephrology consult necessary. 5. Anemia of chronic disease: Continue to monitor labs 6. 6. Generalized debility: OT and PT. 7. Essential hypertension: Continue current medicines 8. Hypoxia secondary #1 resolved on room air monitor pulse ox 9. Hyperlipidemia 10. Epistaxis secondary to nasal trauma with no evidence of nasal fracture 11. Stasis dermatitis of right and left lower legs being followed by wound care nurse. 04/14/[address] [facility], transferred to transitional care unit 04/17/2022. Initial lab work: WBC 7.1-Hgb 8.5-HCT 27.7-PLT 215 Chemistries NA 143-K3.1-CL 111-CO2 22-BUN 53-CRE four-point Diagnoses at that time: 1. Debility secondary to acute UTI 2. Acute Enterobacter UTI 3. Type 2 diabetes #4. Chronic kidney disease stage IV 5. Stage IV pressure ulcers lower legs bilaterally 6. Anemia chronic kidney disease 7. Chronic heart failure with preserved EF 8. Hypertension 9. Hyperlipidemia. HISTORIES FAMILY HISTORY Problem Relation Age of Onset Hypertension Mother Lipids Mother Cancer Father Lymphoma, Leukemia Emphysema Father Cataract Father Diabetes Paternal Grandmother Breast Cancer Paternal Aunt PAST MEDICAL HISTORY Diagnosis Date Concussion 09/2008 - from fall at work Diabetes (HCC) Gastroparesis due to DM (HCC) 09/17/2012 Genital herpes 10/28/2009 Migraine without aura 08/19/2008 Orthostasis Pelvic pain in female 07/29/2012 PMH - PAST MEDICAL HISTORY OF TMJ Vertigo of central origin 04/24/2012 PAST SURGICAL HISTORY Procedure Laterality Date COLONOSCOPY FLX DX W/COLLJ SPEC WHEN PFRMD 12/24/2012 Colonoscopy ESOPHAGOGASTRODUODENOSCOPY TRANSORAL DIAGNOSTIC 01/31/2012 EGD LAPS SURG CHOLECYSTECTOMY W/CHOLANGIOGRAPHY 02/01/2012 Normal IOC PAST SURGICAL HISTORY OF TMJ replacements x 2 PAST SURGICAL HISTORY OF Jaw surgery PAST SURGICAL HISTORY OF PAST SURGICAL HISTORY OF left hip pinned Social History Tobacco Use Smoking status: Never Smokeless tobacco: Never Vaping Use Vaping Use: Never used Substance Use Topics Alcohol use: No Drug use: No ACTIVE PROBLEM LIST Orthostatic Hypotension Nohelia (Latent Autoimmune Diabetes in Adults), Managed As Type 1 (Hcc) Hypertension Ataxia Physical Debility Malnutrition of Moderate Degree (Hcc) Type 1 Diabetes Mellitus With Proliferative Retinopathy and Macular Edema (Hcc) Chronic Pain Syndrome Stage 3b Chronic Kidney Disease (Hcc) Autonomic Neuropathy Current Outpatient Medications Medication Sig Dispense Refill calcium acetate,phosphat bind, (PHOSLO) 667 mg capsule Take 667 mg by mouth three times daily. furosemide (LASIX) 20 mg tablet Take 1 tablet by mouth. furosemide (LASIX) 40 mg tablet Take 1 tablet by mouth. Omeprazole Magnesium 20 mg tablet Take 1 tablet by mouth. hydrALAZINE (APRESOLINE) 100 mg tablet Take 1 tablet by mouth. pregabalin (LYRICA) 75 mg capsule Take 75 mg by mouth twice daily. dilTIAZem CD (CARDIZEM CD) 240 mg 24 hr capsule Take 1 capsule by mouth once daily. 30 capsule 11 flash glucose sensor (FREESTYLE KRISTA 14 DAY SENSOR) kit Use four times a day and as needed for blood sugar monitoring 2 Kit 11 midodrine (PROAMATINE) 2.5 mg tablet Take 1 (more content not included)... [facility]03-09-2023 Nurse Note* Nica Crockett Ma - 06/07/2022 2:49 PM EST Was not on tramadol while at long term, but claims should still be on it. Says she had it taken away from her out of her purse while in the long term. documented in this encounterMer[facility] History of Present illness Narrative* Usha Pastrana PA-C - 06/07/2022 2:40 PM EST 61 year old female with c/o here for follow up Feeling a lot better since discharged from [facility], In home therapy and prison care. PT, OT at home Not in pain, once in awhile hand pain, has tramadol - doesn't use daily. Energy level poor. Able to laundry, dishes, some chores. Breathing is fine Walks on her own, dresses herself. If overworks, falls asleep. Notes some blood around port. Next dressing change tomorrow. Seeing Dr. Bon Krueger tomorrow. No SOB,, orthopnea. Props legs up Swelling a lot better than it used be. Appetite good. While in the hospital she missed appointments with pain management Dr. Steel. Lyrica prescription has run out over the last week, needs refills. She states she still has plenty of tramadol. Does not use it often. Most recent lab work from [facility]: 05/30/2022 blood sugar 292 nonfasting. 05/04/2022 NA 139-K4.5-CL 103-CO2 23.0-AG 12-BUN 63-CRE 4.1, EGFR 12.GLU 188.CA 8.5 05/30/2022 right jugular dialysis catheter placed CXR confirmation, also noted nearly resolved pleural effusions and pulmonary infiltrates. Transferred [facility] for rehab 05/04/2022 Transferred to extended care: Assessment and plan: 1. Acute on chronic congestive heart failure with intermediate ejection fraction: Continue Lasix IV 2. Hyperkalemia corrected at this time, follow labs. 3. Type 2 diabetes with complicating care: Continue to monitor blood sugar with sliding scale insulin 4. Chronic kidney disease stage IV monitor labs, nephrology consult necessary. 5. Anemia of chronic disease: Continue to monitor labs 6. 6. Generalized debility: OT and PT. 7. Essential hypertension: Continue current medicines 8. Hypoxia secondary #1 resolved on room air monitor pulse ox 9. Hyperlipidemia 10. Epistaxis secondary to nasal trauma with no evidence of nasal fracture 11. Stasis dermatitis of right and left lower legs being followed by wound care nurse. 04/14/[address] ER [address] [facility], transferred to transitional care unit 04/17/2022. Initial lab work: WBC 7.1-Hgb 8.5-HCT 27.7-PLT 215 Chemistries NA 143-K3.1-CL 111-CO2 22-BUN 53-CRE four-point Diagnoses at that time: 1. Debility secondary to acute UTI 2. Acute Enterobacter UTI 3. Type 2 diabetes #4. Chronic kidney disease stage IV 5. Stage IV pressure ulcers lower legs bilaterally 6. Anemia chronic kidney disease 7. Chronic heart failure with preserved EF 8. Hypertension 9. Hyperlipidemia. HISTORIES FAMILY HISTORY Problem Relation Age of Onset Hypertension Mother Lipids Mother Cancer Father Lymphoma, Leukemia Emphysema Father Cataract Father Diabetes Paternal Grandmother Breast Cancer Paternal Aunt PAST MEDICAL HISTORY Diagnosis Date Concussion 09/2008 - from fall at work Diabetes (HCC) Gastroparesis due to DM ([facility]) 09/17/2012 Genital herpes 10/28/2009 Migraine without aura 08/19/2008 Orthostasis Pelvic pain in female 07/29/2012 PMH - PAST MEDICAL HISTORY OF TMJ Vertigo of central origin 04/24/2012 PAST SURGICAL HISTORY Procedure Laterality Date COLONOSCOPY FLX DX W/COLLJ SPEC WHEN PFRMD 12/24/2012 Colonoscopy ESOPHAGOGASTRODUODENOSCOPY TRANSORAL DIAGNOSTIC 01/31/2012 EGD LAPS SURG CHOLECYSTECTOMY W/CHOLANGIOGRAPHY 02/01/2012 Normal IOC PAST SURGICAL HISTORY OF TMJ replacements x 2 PAST SURGICAL HISTORY OF Jaw surgery PAST SURGICAL HISTORY OF PAST SURGICAL HISTORY OF left hip pinned Social History Tobacco Use Smoking status: Never Smokeless tobacco: Never Vaping Use Vaping Use: Never used Substance Use Topics Alcohol use: No Drug use: No ACTIVE PROBLEM LIST Orthostatic Hypotension Nohelia (Latent Autoimmune Diabetes in Adults), Managed As Type 1 ([facility]) Hypertension Ataxia Physical Debility Malnutrition of Moderate Degree ([facility]) 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 furosemide (LASIX) 20 mg tablet Take 1 tablet by mouth. furosemide (LASIX) 40 mg tablet Take 1 tablet by mouth. Omeprazole Magnesium 20 mg tablet Take 1 tablet by mouth. hydrALAZINE (APRESOLINE) 100 mg tablet Take 1 tablet by mouth. pregabalin (LYRICA) 75 mg capsule Take 75 mg by mouth twice daily. dilTIAZem CD (CARDIZEM CD) 240 mg 24 hr capsule Take 1 capsule by mouth once daily. 30 capsule 11 flash glucose sensor (FREESTYLE KRISTA 14 DAY SENSOR) kit Use four times a day and as needed for blood sugar monitoring 2 Kit 11 midodrine (PROAMATINE) 2.5 mg tablet Take 1 tablet by mouth twice daily. Hold for systolic BP insulin glargine (LANTUS SOLOSTAR, BASAGLAR KWIKPEN) 100 unit/mL (3 mL) Inject 35 Units subcutaneously daily at bedtime. 12 Each 3 insulin lispro (HUMALOG KWIKPEN INSULIN) 100 unit/mL 8 units sq TID, and sliding scale. Maximum 50uper day 12 Each 5 ferrous sulfate 325 mg (65 mg iron) tablet Take 325 mg by mouth daily with breakfast. ondansetron orally disintegrating (ZOFRAN ODT) 4 mg disintegrating tablet Take 1 tablet by mouth every 8 hours as needed. 30 tablet 1 cloNIDine HCl (CATAPRES) 0.3 mg tablet Take 1 tablet by mouth three times daily. 90 tablet 5 sertraline (ZOLOFT) 50 mg tablet Take 1 tablet by mouth once daily. 30 tablet 5 atorvastatin (LIPITOR) 40 mg tablet Take 1 tablet by mouth daily at bedtime. 30 tablet 11 insulin needles, DISPOSABLE, (PEN NEEDLE) 31 gauge x 5/16 Use one needle per dose. Twice per day. 200 Each 3 blood sugar diagnostic (BLOOD GLUCOSE TEST) test strip Test blood sugar(s) 4 times daily. Dx: OtherDM Code E13.65 Insulin: Yes 50 Strip 11 Lancets lancets Test blood sugar(s) 4 times daily. Dx: Other DM Code E13.65 Insulin: Yes 100 Each 11 blood sugar diagnostic (FREESTYLE LITE STRIPS) test strip Test blood sugar(s) 4 times daily. Insulin: Yes (Patient taking differently: Test blood sugar(s) 4 times daily. Insulin: Yes) 400 Strip 3 alcohol swabs (ALCOHOL PADS) Use to prior to checking blood sugar 4 times daily. 400 Each 3 polyethylene glycol 3350 (MIRALAX) 17 gram/dose powder For colonoscopy prep 235 g 0 bisacodyl EC (DULCOLAX, BISACODYL,) 5 mg EC tablet Take 1 tablet by mouth as directed. Take two (2)each time, as explained on the instruction sheet provided. 4 tablet 0 magnesium oxide (MAG-OX) 400 mg (241.3 mg magnesium) tablet Take 1 tablet by mouth twice daily. 60 tablet 2 flash glucose scanning reader (FREESTYLE KRISTA 14 DAY READER) 1 Each four times daily. 1 Each 0 traMADol (ULTRAM) 50 mg tablet Take 50 mg by mouth every 8 hours as needed. meclizine (ANTIVERT) 25 mg tab Take 1 tablet by mouth every 6 hours as needed (dizziness). 30 tablet 1 Miscellaneous Medical Supply (BLOOD PRESSURE CUFF) [facility] Use as directed. 1 Each 0 Blood Pressure Monitor kit Use as directed 1 Kit 0 COMPOUNDED PRESCRIPTION Quad cane 1 Each 0 blood sugar diagnostic (BLOOD GLUCOSE TEST) test strip Test blood sugar(s) 4 times daily. Dx: Type 2 DM - Uncontrolled E11.65 Insulin: Yes 150 Strip 3 aspirin 81 mg chewable tablet Take 1 tablet by mouth once daily. 30 tablet Lancets lancets Test blood sugar(s) 4 times daily. Dx: Type 2 DM - Uncontrolled E11.65 Insulin: [id number] Each 3 No current facility-administered medications for this visit. HEPATITIS C SCREENING Never done HIV SCREENING Never done BP CONTROLLED (<130/80) Never done PNEUMOCOCCAL(2 - PCV) due on 01/12/2010 SHINGRIX VACCINE(1 of 2) Never done PAP TESTING due on 07/29/2017 HPV TESTING due on 07/29/2017 DTAP,TDAP,TD(4 - Td or Tdap) due on 01/12/2019 MAMMOGRAM due on 07/06/2021 DEPRESSION ASSESSMENT Never done HBA1C due on 05/12/2022 DIABETIC FOOT EXAM due on 06/15/2022 LDL CHOLESTEROL due on 06/19/2022 EXAM: BP 157/78 Pulse 62 Temp 36.1 C (97 F) Resp 20 LMP 09/30/2008 SpO2 98% Pleasant overweight adult woman who appears much thinner than last meeting, in no acute distress. Alert and oriented all spheres. Normal affect and cognition. Speech normal. No deficits to learning or comprehension. Skin warm, dry, pink to lips and nailbeds. Normal turgor. Respirations regular and unlabored. HEENT: NCAT. No scleral icterus or conjunctival injection. TM's bilateral cerumen partially obstructing but no hearing issues.. Nose and oropharynx free from injection or lesion. Oral membranes dry and pink. No cervical lymph nodes. Thyroid non-tender, no masses, or enlargement. Carotids pulses 2+/4+ without bruits. No JVD with HOB at 30 degrees. Neck veins are flat Chest is normal shape. Right jugular port appears free from erythema but dressing soaked with Lungs are clear to all olivo with good air exchange through out. HRRR without murmur or gallop. No lifts, heaves, or rubs. Extrem: no clubbing or cyanosis. Edema: dressings and compression stockinette intact, not removed. Toes warm and pink with prompt capillary refill. Nonpitting pretibial. ASSESSMENT/PLAN: 1. Hospital discharge follow-up - ICD9: V67.59, ICD10: Z09 (primary diagnosis) Updated problem list, completing medication reconciliation 2. Acute on chronic combined systolic and diastolic CHF (congestive heart failure) ([facility]) - ICD9: 428.43, 428.0, ICD10: I50.43 Resolved 3. CKD (chronic kidney disease) stage 4, GFR 15-29 ml/min ([facility]) - ICD9: 585.4, ICD10: N18.4 - eGFR: Worsening - Counseled on avoiding regular use of NSAIDs, adequate hydration, potential risk of IV dye - Counseled on renal diet (low sodium/low potassium/low phosphorus) - Medications reviewed and renally adjusted On jugular dialysis, starting tomorrow, will be followed at the hospital. 4. Anemia, chronic disease - ICD9: 285.29, ICD10: D63.8 Stable and improved from hospitalization. We will continue to follow. 5. Autonomic neuropathy - ICD9: 337.9, ICD10: G90.9 Refilled temporarily until he can see pain management. - PREGABALIN 75 MG CAPSULE - HGB A1C 6. 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) - ICD9: 250.51, 362.07, 362.02, ICD10: E10.3519 Need to assess control - HGB A1C 7. Chronic pain syndrome - ICD9: 338.4, ICD10: G89.[address] Steel 8. Physical debility - ICD9: 799.3, ICD10: R53.81 - ONDANSETRON 4 MG DISINTEGRATING TABLET 9. Hypertension - ICD9: 401.1, ICD10: I10 - suboptimal control - Continue current medication(s) - Encouraged dietary sodium restriction/DASH diet - Recommended regular aerobic exercise. - Recommend home blood pressure monitoring, to bring results in on next visit - Discussed need and benefit for weight loss. - Goal of BP <130/80 10. Hypokalemia - ICD9: 276.8, ICD10: E87.6 - POTASSIUM CHLORIDE ER 10 MEQ TABLET,EXTENDED RELEASE F/u in 3 months with PCP Usha Pastrana PA-C documented in this encounterMer[facility]03-06-[facility]23 NoteHNO ID: [id number] Author: Ceci Richard Service: ? Author Type: ? Type: Progress Notes Filed: 06/04/2022 2:02 PM Note Text: Medication reconciliation post discharge from [facility] [place]. Ceci RichardUniversity [facility]03-06-2023 Miscellaneous Notes* Telephone Encounter - Ceci Richard - 06/04/2022 2:07 PM EST Left detailed message with verbal ok for OT on Marcus's VM. Advised him to call back with any questions or concerns. Ceci Richard * Telephone Encounter - Dennys Baez MD - 06/04/2022 11:47 AM EST Ok for OT * Telephone Encounter - Vale Frias LPN - 06/04/2022 11:25 AM EST Has a hospital follow up scheduled 06/07/22 with [facility]. * Telephone Encounter - Jana Portillo Pss - 06/04/2022 11:18 AM EST Marcus with [facility] calling stating they will be picking patient up twice per week for three weeks for gait and fall training. He is also requesting a verbal order for OT evaluation. Please advise and call Marcus. documented in this encounterMercy [facility]03-06-2023 History of Present illness Narrative* Ceci Richard - 06/04/2022 1:56 PM EST Medication reconciliation post discharge from [facility] [place]. Ceci Richard documented in this encounterMercy [facility]03-03-2023 Miscellaneous Notes* Telephone Encounter - Vale Frias LPN - 06/01/2022 9:38 AM EST [address]axed [facility] asking for a medication list. * Telephone Encounter - Dennys Baez MD - 05/31/2022 4:59 PM EST I have seen nothing from the F * Telephone Encounter - Daisy Matthews RN - 05/31/2022 4:20 PM EST Anabel Dub Room Engineer with [facility] called to report that Pt was [facility]. She was asking if the provider had any discharge paperwork if they could fax them to her at fax # [phone]. She states she will go over the information with the patient. documented in this encounterMercy Health [facility]01-30-2023 Miscellaneous Notes* Telephone Encounter - Brittney Almaguer LPN - 04/30/2022 2:[address] Terry office calling asking for copy of last office visit notes to be faxed to [phone]. Printed and faxed as requested. documented in this encounterMercy Health [facility]01-16-2023 Miscellaneous Notes* Telephone Encounter - MANUELA Gordon - 04/16/2022 12:27 PM EST Ashanti spoke with Gemini,Clinical Liaison,[facility] and she notes that she has received notes from [facility] is sending those to vice president medical affairs to see if she meets diagnoses for placement and if patientinsurance will allow rehab at [facility]. Gemini noted that if it does not work out at [facility] is [facility] staff thinking about SNF placement. Ashanti [facility] and this has been brought up to ASHANTI Álvarez as another option. Gemini notes that she will let Dr. Baez/Ashanti know if patient will be accepted to [facility]. * Telephone Encounter - Dennys Baez MD - 04/16/2022 12:25 PM EST Thank you! * Telephone Encounter - MANUELA Gordon - 04/16/2022 12:17 PM EST This Sw [facility] that Tino Do SW was already looking at rehab options for patient. Shilpi notes that due to patient diagnosis not sure if [facility] will be an option. This Sw also received message from [facility],Clinical Liaison, noting that if [facility] is looking to send patient to their rehab to send referral to [facility] directly. This Sw called and left Shilpi message with Gemini ph. [phone] as had provided Shilpi with [facility] fax for Gemini but wanted to also provide [facility] with Gemini phone number. * Telephone Encounter - MANUELA Gordon - 04/16/2022 10:11 AM EST This Sw called and [facility] to see if she or another Sw would speak with patientabout going to rehab pending her current healthcare needs. Shilpi notes patient is in [facility] and she will call and speak with the SW that covers [facility] in regards to patient current healthcare needs as Shilpi is her Sw through [facility] and is aware of patient medical needs and home care needs/limitations. documented in this encounterMercy Health [facility]01-14-2023 Miscellaneous Notes* Telephone Encounter - César Figueredo RN - 04/14/2022 6:33 PM EST Patient calling to notify her PCP that she is currently in the [place] ED for weakness. I encouraged the patient to remain in the ED for evaluation and treatment of her symptoms. She verbalized understanding and agreed to do so. documented in this encounterMercy Health [facility]01-13-2023 Miscellaneous Notes* Telephone Encounter - Vale Frias LPN - 04/13/2022 4:28 PM EST Printed notes from office and faxed as requested. * Telephone Encounter - MANUELA Gordon - 04/13/2022 3:47 PM EST Ashanti spoke with ASHANTI Dobbins [facility] and asked if she could forward their therapy notes to BRADLY Singletary,Clinical Liaison. Shilpi notes that she will work on faxing Gemini their therapy notes to faxnumber below. * Telephone Encounter - MANUELA Gordon - 04/13/2022 3:28 PM EST Ashanti received call back from Gemini-Clinical Liaison, [facility]. . Gemini requests recent H&P, copy of insurance cards, copy of recent office note and copy of therapy notes to be faxed attn: BRADLY Singletary [phone]. Ashanti noted that she would send this message to Dr. Baez office to see about them faxing info to [facility]. This Ashanti will also reach out to [facility], Ashanti to see if they can assist by sending copy of therapy notes to Gemini. documented in this encounterMercy Health [facility]01-11-2023 Miscellaneous Notes* Telephone Encounter - Brittney Almaguer LPN - 04/11/2022 2:39 PM EST Patient calling back asking about getting into [facility]. Saw notes below. * Telephone Encounter - Dennys Baez MD - 03/23/2022 8:32 AM EST She did go but not kept. She has an appt to see us next week. Thanks for your help! * Telephone Encounter - MANUELA Gordon - 03/23/2022 8:18 AM EST Sw noted 03/21 nurse triage note mentions patient going to ED due to high blood pressure. Not sure if she went to ED. Ashanti has not heard back from [facility]. Ashanti has left multiple messages there for a return call. Sw will be out next week. [phone]. If patient not at hospital and still wants to [facility] this is the number SW used to call. * Telephone Encounter - MANUELA Gordon - 03/21/2022 11:23 AM EST Ashanti received message [facility]A asking about update on patient going to [facility]. Ashanti noted waiting to hear back from [facility].\ Ashanti also left message to patient letting her know that Ashanti has left 2 messages for [facility],Admissions. Waiting to hear back. * Telephone Encounter - MANUELA Gordon - 03/21/2022 10:09 AM EST Sw left 2nd message for [facility] Admissions ph.[phone] to call back to discuss below. Sw hasnot heard back from Admissions. * Telephone Encounter - Pau Emanuel RN - 03/21/2022 9:36 AM EST Patient calling in to ask if there are any updates to [facility] request. Informed patient that [facility] was working on it and patient would be contacted with any updates. Pau Emanuel RN * Telephone Encounter - Dennys Baez MD - 03/20/2022 12:41 PM EST Thank you!!!! * Telephone Encounter - MANUELA Gordon - 03/20/2022 12:38 PM EST Sw left message for [facility] admissions office to return Sw call to discuss how referral for inpatient rehab when patient living at home in the community would work. Will see if and how referral would need to be submitted. * Telephone Encounter - Dennys Baez MD - 03/20/2022 11:38 AM EST I am not really sure how we generate an [facility] referral. Do we need to have Trina involved? I have only been involved in these from the inpatient side. If they have no availability may need to consider a short term ecf stay for her safety * Telephone Encounter - Bharati Mas LPN - 03/20/2022 9:28 AM EST Pt is calling to request a referral to [facility]. Pt reports she was there a couple of years ago and made good progress with them. Pt reports she is not doing well with [facility] therapy. Pt reports she can barely walk at this time and cannot do steps. Pt reports she has two steps at home and cannot do them at all. Please review and advise. Bharati Mas LPN documented in this encounterMercy Health [facility]01-11-2023 Miscellaneous Notes* Telephone Encounter - Dennys Baez MD - 04/11/2022 12:04 PM EST Will follow * Telephone Encounter - Janessa Perez LPN - 04/11/2022 11:24 AM EST FYI: Myranda with [facility] HH, OT called to let you know pt's blood pressure today at 10:45 am was 165/72. Myranda did not repeat because pt had not taken her medication yet. No other information available. If anything is needed please call pt. Janessa Perez LPN documented in this encounterMercy Health [facility] Hospital01-10-2023 Miscellaneous Notes* Telephone Encounter - Nica Crockett Ma - 04/10/2022 4:50 PM EST Faxed to [facility] * Telephone Encounter - Dennys Baez MD - 04/10/2022 12:53 PM EST Ok to discontinue. * Telephone Encounter - Margaret Parkinson RN - 04/10/2022 12:44 PM EST Patient calls to ask if provider would send an order to [facility] to sisal picker her oxygen that she hasn'tused in 2 weeks. Reviewed yesterday's note that stated patient needed a F2F visit but patient asking again if provider would please send the order as she is not able to get out of her house for an OV and her pulse oxis running 95-96% at all times even when doing therapy. Please review and advise, Margaret Parkinson RN documented in this encounterMercy Health Perry[facility] Hospital01-10-2023 Miscellaneous Notes* Telephone Encounter - Katerine Vaughan LPN - 04/10/2022 3:45 PM EST Joceline from [facility] notified, verbalized understanding. * Telephone Encounter - Dennys Baez MD - 04/10/2022 3:37 PM EST ok * Telephone Encounter - Jannette Fernandez RN - 04/10/2022 3:19 PM EST Joceline calling from [facility] to report plan of care for patient and [facility] will visit patient 2 times a week for 3 weeks and 1 time a week for one week to re-certify. Long-Term will work with patient on dressings on legs. Please review and Advise, Jannette Fernandez RN documented in this encounterMercy Health Perry[facility] Hospital01-09-2023 Miscellaneous Notes* Telephone Encounter - Brittney Almaguer LPN - 04/09/2022 1:06 PM EST Patient calling asking for new rx for Hydralazine 25 mg one tablet twice daily she had gotten rx from [facility] ER and has none left, has not taken any today. [facility] Pending rx if wanted. Please advise Patient asking about having her oxygen stopped, and asking for Pure wick order. Explained to patient she would need face to face visit with provider, needs SPO2 testing checked also. Patient said shecan not get up and down steps to get out where she lives. Patient has been identified by name and date of : Patient phones for refill(s): Requested Prescriptions Pending Prescriptions Disp Refills hydrALAZINE (APRESOLINE) 25 mg tablet Sig: Take 1 tablet by mouth twice daily. Date of last office visit in primary care: 03/27/2022, Last 2 Encounter Wt Readings: Date: Wt: 02/09/2022 90.7 kg (200 lb) 01/16/2022 82.6 kg (182 lb) Previous labs/tests for medication: Blood Pressure: BUN (mg/dL) Date Value 02/09/2022 41 02/25/2021 11 Sodium (mmol/L) Date Value 02/09/2022 138 02/25/2021 142 Last 1 Encounter BP Readings: Date: BP: 02/09/2022 172/82 Please advise. Thank you. Brittney Almaguer LPN documented in this encounterMercy Health Perry[facility] Hospital01-04-2023 Miscellaneous Notes* Telephone Encounter - Nica Crockett Ma - 04/04/2022 1:16 PM EST Valentina notified and will make sure pt takes medication before visit tomorrow. Will give updated BP tomorrow. Nica Crockett Ma * Telephone Encounter - Dennys Baez MD - 04/04/2022 12:58 PM EST Call with update in am. * Telephone Encounter - Jannette Fernandez RN - 04/04/2022 12:39 PM EST Valentina PT from [facility] calls to report that while she was visiting patient today patient's blood pressure was 181/96. Patient was asymptomatic. Patient had not taken blood pressure medications yet. Patient took blood pressure medications while Valentina was there at around 11:30 am. Please review and advise, Jannette Fernandez RN documented in this [facility]12-29-2022 Miscellaneous Notes* Telephone Encounter - Vale Frias LPN - 03/29/2022 10:38 AM EST Completed and faxed. * Telephone Encounter - Da Saucedo LPN - 03/28/2022 3:09 PM EST Patient has been identified by name and date of : Yes, Provider Nestor Date 03/28/22 Time 3:09pm Type of form: Medical Necessity Form received via: Fax When form is completed, fax form to fax number provided. Form has been forwarded to: Provider's mailbox. Provider name: Nestor Saucedo LPN documented in this [facility]12-28-2022 Miscellaneous Notes* Telephone Encounter - Usha Hernandze RN - 03/28/2022 12:16 PM EST [place]- - [facility] HH reporting POC: will see patient 1 x week for 1 week, then 2 x week for 4 weeks. Nocall back needed if pcp agrees. Reports patient was sent home from hospital on O2 @ 3LNC. Reports patient does not know why. Patient took it off while walking today and left it off for 10 min. [place] did POX after 10 min of walking and POX read 97-100% on RA. Just wanted pcp to be aware of this. Reports BP today was 120's/60's. documented in this [facility]12-28-2022 Miscellaneous Notes* Telephone Encounter - Kathie Lewis LPN - 03/28/2022 11:39 AM EST Charleen calling from [facility] PT reports pt will be seen 2X weekly X 4 wks for lower extremity strength, transfer, gait training, endurance & balance. Charleen reports pt's BP is also good. Kathie Lewis LPN documented in this encounterMercy Health [facility] Hospital12-27-2022 Miscellaneous Notes* Telephone Encounter - Da Saucedo LPN - 03/27/2022 3:29 PM EST Carla notified. She verbalized understanding. Da Saucedo LPN * Telephone Encounter - Dennys Baez MD - 03/27/2022 3:23 PM EST Ok with above. Agree. Really needs ecf placement. * Telephone Encounter - Brittney Almaguer LPN - 03/27/2022 3:15 PM EST Carla from [facility] Home Health calling asking for wound care orders for patient left heel. Nurse put Aquacel-AG with gauze and kerlix today for first time. Patient has ulcer on left heel from heel sittingon the floor and not moving it. Patient skin is macerated with venous status ulcer left ankle area.Patient is not compliant with changing dressing daily if dressing is wet and elevating legs. Patient has edema and weeping constantly, dressing was saturated dripping when nurse was there today. Advised to have significant other help with dressing changes. Patient can not get to wound center any longer can hardly get around in her home, using rollator. Nurse is discussing situation with Type Copy Examiner also, to assist with SNF placement. Please advise documented in this encounterMercy Health Perry[facility] Hospital12-27-2022 History of Present illness Narrative* Dennys Baez MD - 03/27/2022 2:00 PM EST Patient presents with: Hospital F/U HPI:This Team Access Model visit is a phone encounter. It required patient- provider interaction forthe medical decision making as documented below. Patient has elected to have a visit through distance medicine. Patient is aware of limitations of performing the visit without a face to face visit in the office setting and agrees. Since last here was hospitalized at [facility] and also has been back to the ER. Limited records available. Most of info obtained from patient. Was admitted recently for GASTROENTEROLOGY bleeding. Is to see gi and has seen endo. Is to see wound care. She is to have a chest xray done Was hospitalized for three days from 03/15-03/18 at [facility]. Apparently had hb that was below 8. Had egd. No further gi issues. Using oxygen. Her breathing is better. Had chest xray that showed pleural effusion. Seeing nephrology in April. Bp was 110/57 today since placed on hydralazine. She is still on proamatine. Her swelling is stable. She is using wraps on her legs. Her sugars are better. Was 102 after lunch. student services representative has putting calls into [employer]. She is having trouble getting out of the home. Home health is coming into the home. Occupational and physical therapy are coming in. She had been in [place] recently MEDICATIONS: Current Outpatient Medications Medication Sig dilTIAZem CD (CARDIZEM CD) 240 mg 24 hr capsule Take 1 capsule by mouth once daily. flash glucose sensor (FREESTYLE KRISTA 14 DAY SENSOR) kit Use four times a day and as needed for blood sugar monitoring midodrine (PROAMATINE) 2.5 mg tablet Take 1 tablet by mouth twice daily. Hold for systolic BP pregabalin (LYRICA) 50 mg capsule Take 1 capsule by mouth twice daily for 180 days. insulin glargine (LANTUS SOLOSTAR, BASAGLAR KWIKPEN) 100 unit/mL (3 mL) Inject 35 Units subcutaneously daily at bedtime. insulin lispro (HUMALOG KWIKPEN INSULIN) 100 unit/mL 8 units sq TID, and sliding scale. Maximum 50uper day ferrous sulfate 325 mg (65 mg iron) tablet Take 325 mg by mouth daily with breakfast. ondansetron orally disintegrating (ZOFRAN ODT) 4 mg disintegrating tablet Take 1 tablet by mouth every 8 hours as needed. cloNIDine HCl (CATAPRES) 0.3 mg tablet Take 1 tablet by mouth three times daily. sertraline (ZOLOFT) 50 mg tablet Take 1 tablet by mouth once daily. atorvastatin (LIPITOR) 40 mg tablet Take 1 tablet by mouth daily at bedtime. insulin needles, DISPOSABLE, (PEN NEEDLE) 31 gauge x 5/16 Use one needle per dose. Twice per day. pantoprazole DR (PROTONIX) 40 mg tablet Take 1 tablet by mouth daily before breakfast. Take on empty stomach, 1/2 hr before meal. blood sugar diagnostic (BLOOD GLUCOSE TEST) test strip Test blood sugar(s) 4 times daily. Dx: OtherDM Code E13.65 Insulin: Yes Lancets lancets Test blood sugar(s) 4 times daily. Dx: Other DM Code E13.65 Insulin: Yes blood sugar diagnostic (FREESTYLE LITE STRIPS) test strip Test blood sugar(s) 4 times daily. Insulin: Yes (Patient taking differently: Test blood sugar(s) 4 times daily. Insulin: Yes) alcohol swabs (ALCOHOL PADS) Use to prior to checking blood sugar 4 times daily. polyethylene glycol 3350 (MIRALAX) 17 gram/dose powder For colonoscopy prep bisacodyl EC (DULCOLAX, BISACODYL,) 5 mg EC tablet Take 1 tablet by mouth as directed. Take two (2)each time, as explained on the instruction sheet provided. magnesium oxide (MAG-OX) 400 mg (241.3 mg magnesium) tablet Take 1 tablet by mouth twice daily. flash glucose scanning reader (FREESTYLE KRISTA 14 DAY READER) 1 Each four times daily. traMADol (ULTRAM) 50 mg tablet Take 50 mg by mouth every 8 hours as needed. meclizine (ANTIVERT) 25 mg tab Take 1 tablet by mouth every 6 hours as needed (dizziness). Miscellaneous Medical Supply (BLOOD PRESSURE CUFF) misc Use as directed. Blood Pressure Monitor kit Use as directed COMPOUNDED PRESCRIPTION Quad cane blood sugar diagnostic (BLOOD GLUCOSE TEST) test strip Test blood sugar(s) 4 times daily. Dx: Type 2 DM - Uncontrolled E11.65 Insulin: Yes aspirin 81 mg chewable tablet Take 1 tablet by mouth once daily. Lancets lancets Test blood sugar(s) 4 times daily. Dx: Type 2 DM - Uncontrolled E11.65 Insulin: Yes No current facility-administered medications for this visit. ALLERGIES: ALLERGIES Allergen Reactions Metformin GI Upset PAST MEDICAL HISTORY Diagnosis Date Concussion 09/2008 - from fall at work Diabetes (HCC) Gastroparesis due to DM ([facility]) 09/17/2012 Genital herpes 10/28/2009 Migraine without aura 08/19/2008 Orthostasis Pelvic pain in female 07/29/2012 PMH - PAST MEDICAL HISTORY OF TMJ Vertigo of central origin 04/24/2012 PAST SURGICAL HISTORY Procedure Laterality Date COLONOSCOPY FLX DX W/COLLJ SPEC WHEN PFRMD 12/24/2012 Colonoscopy ESOPHAGOGASTRODUODENOSCOPY TRANSORAL DIAGNOSTIC 01/31/2012 EGD LAPS SURG CHOLECYSTECTOMY W/CHOLANGIOGRAPHY 02/01/2012 Normal IOC PAST SURGICAL HISTORY OF TMJ replacements x 2 PAST SURGICAL HISTORY OF Jaw surgery PAST SURGICAL HISTORY OF PAST SURGICAL HISTORY OF left hip pinned FAMILY HISTORY Problem Relation Age of Onset Hypertension Mother Lipids Mother Cancer Father Lymphoma, Leukemia Emphysema Father Cataract Father Diabetes Paternal Grandmother Breast Cancer Paternal Aunt Social History Tobacco Use Smoking status: Never Smokeless tobacco: Never Vaping Use Vaping Use: Never used Substance Use Topics Alcohol use: No Drug use: No Reviewed current medications, allergies, past medical history, surgical history, family history andsocial history today. REVIEW OF SYSTEMS All other reviewed and negative other than HPI. VITALS: LMP 09/30/2008 Last 4 Encounter Wt Readings: Date: Wt: 02/09/2022 90.7 kg (200 lb) 01/16/2022 82.6 kg (182 lb) 06/30/2021 84.4 kg (186 lb) 06/19/2021 86.1 kg (189 lb 12.8 oz) PHYSICAL EXAMINATION: Patient is alert and oriented during visit. Answers appropriately. ASSESSMENT/PLAN: 1. CKD (chronic kidney disease) stage 4, GFR 15-29 ml/min ([facility]) - ICD9: 585.4, ICD10: N18.4 (primary diagnosis) - reinforced importance of following with nephrology. Discussed possibility of eventual dialysis. Check labs. Keep bp stable. - CBC + DIFF - BASIC METABOLIC PNL 2. Gastrointestinal hemorrhage, unspecified gastrointestinal hemorrhage type - ICD9: 578.9, ICD10: K92.2 - follow with gi. Get records. - CBC + DIFF - BASIC METABOLIC PNL 3. Pleural effusion - ICD9: 511.9, ICD10: J90 - get records to see if other work up needed. - XR CHEST 2V FRONTAL/LAT 4. Ataxia - ICD9: 781.3, ICD10: R27.0 - continue therapies. 5. Orthostatic hypotension - ICD9: 458.0, ICD10: I95.1 - stable. 6. Hypertension - ICD9: 401.1, ICD10: I10 - immproved control. Continue hydralazine. 7. Stage 3b chronic kidney disease (HCC) - ICD9: 585.3, ICD10: N18.32 8. 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 Reinforced importance of following withendo Dennys Baez MD RTO in four weeks. I spent 22 minutes in the visit, with more than 50% of the total cdtb-ad-qqtr time of the visit in counseling / coordination of care. documented in this encounterMercy Health Perry[facility] Hospital12-27-2022 Miscellaneous Notes* Telephone Encounter - Katerine Vaughan LPN - 03/27/2022 11:15 AM EST Appointment changed to phone call. Left message for patient. * Telephone Encounter - Linda Barrientos - 03/27/2022 10:42 AM EST Pt called regarding appt. Pt is not able to do appt virtually. She does not have MyChart or video capability. Confirms she is unable to come to in person visit. Asking about a possible phone call. * Telephone Encounter - Katerine Vaughan LPN - 03/27/2022 9:55 AM EST Switched to virtual. Patient notified, left detailed message on identifiable voicemail. * Telephone Encounter - Katerine Vaughan LPN - 03/27/2022 9:20 AM EST Called patient, offered patient appointment later this week. Patient is unable to make it out of her house in general. She is requesting a virtual visit. Please review and advise. * Telephone Encounter - Usha Hernandez RN - 03/27/2022 8:04 AM EST Patient reports she has an appt with pcp today at 2 pm for hosp f/u. States she is unable to get out of her house. Asking if she can change appt to a virtual visit, or does pcp prefer she reschedulesthe appt? Please advise patient. documented in this encounterMercy Health Perrysburg Hospital12-22-2022 Miscellaneous Notes* Telephone Encounter - Nica Crockett Ma - 03/22/2022 9:05 AM EST Pt has appt on 03/27/22 for hospital follow up scheduled * Telephone Encounter - Manjit Pollock MD - 03/21/2022 9:11 PM EST DOC received call from [facility] ER. Patient in ER. Was recently released due to HTN, ALMA, na dn vomiting. Was sent in due to high BP. Patient asymptomatic and was given IV hydralazine and BP came down to 178/87. Okayed patient being discharged and suggested adding hydralazine 25 mg TID. Patient needs f/u in Office next week on or Sat for HTN med check. documented in this encounterMercy Health Perrysburg Hospital12-21-2022 Miscellaneous Notes* Telephone Encounter - DARIO Lang - 03/21/2022 2:04 PM EST TC to patient who verbalizes understanding and says they will be calling the squad to take her to the ER. DARIO Lang * Telephone Encounter - Dennys Baez MD - 03/21/2022 1:55 PM EST Needs to go to er as directed. At risk for stroke at that level * Telephone Encounter - Margaret Parkinson RN - 03/21/2022 12:49 PM EST Physical Therapist calls because blood pressure is elevated. Patient hadn't taken blood pressure medication. Medication taken at time of call and called patient back 45 min later. Called patient back 45 minutes after taking blood pressure medication and blood pressure is: 214/120 in left arm and 206/128 in right arm. Nurse triage completed. Patient denies any symptoms besides all over weakness which is on- going. Protocol recommends see PCP within 4 hours or PCP triage. Patient declines d/t transportation. Patient reports if she develops any red flag symptoms she will call the squad and go to ED but asking provider what he recommends she do about blood pressure medication? Reason for Disposition [1] Systolic BP >= 200 OR Diastolic >= 120 AND [2] having NO cardiac or neurologic symptoms Answer Assessment - Initial Assessment Questions 1. BLOOD PRESSURE: This morning 197/111. Currently 199/112 and recheck 188/106 before medication. Patient taking medication now. Patient hasn't taken any midodrine. Patient reports that blood pressure has been all over the place while at hospital and since returning home. Physical therapist was at home to do eval but d/t blood pressure elevation not completed at this time. Called patient back 45 minutes after taking blood pressure medication and blood pressure is: 214/120 in left arm and 206/128 in right arm. 2. ONSET: This morning and right before phone call. 3. HOW: Physical therapist and at home cuff. 4. HISTORY: yes 5. MEDICATIONS: Cardizem 240 CR daily and Clonidine 0.3 mg three times daily. 6. OTHER SYMPTOMS: Denies headache, chest pain, blurred vision, difficulty breathing. Patient does report weakness and unsteadiness with ambulation. Protocols used: Blood Pressure - [id number] documented in this encounterMercy Health Perrysburg Hospital12-20-2022 Miscellaneous Notes* Telephone Encounter - Brittney Almaguer LPN - 03/20/2022 12:19 PM EST Keyonna from [facility] Home Health calling with prison plan of care, 1 visit weekly for 3 weeks working on disease education and wound care. documented in this encounterMercy Health Perrysburg Hospital12-15-2022 Miscellaneous Notes* Telephone Encounter - Que Ogden LPN - 03/15/2022 9:24 AM EST Pt calling to cancel her appointment today d/t she states she has been readmitted to [facility]. Que Soliman LPN documented in this encounterMercy Health Perrysburg Hospital12-14-2022 Miscellaneous Notes* Telephone Encounter - Xenia Jaquez APRN.ADRIAN - 03/14/2022 11:08 AM EST Agree w/ plan. Eval in ER. * Telephone Encounter - Pau Emanuel RN - 03/14/2022 10:07 AM EST Triage protocol advised: Call 911 now due to patient unable to move out of recliner. Pt and S.O. isagreeable. Reason for Disposition [1] Vomiting AND [2] contains red blood or black ( coffee ground ) material (Exception: few red streaks in vomit that only happened once) Answer Assessment - Initial Assessment Questions Patient calling with significant other with her. Pt states she has been vomiting every 30 minutes for the last 24 hours with coffee ground emesis present. Weak, shaking and swollen bottom lip, Mouth dry. Denies fever, abdominal pain or diarrhea. Unable to move out of chair that she is in. States she was recently at [facility] ER and is taking an antibiotic and isn't sure if this is contributing to her sickness. 1. VOMITING SEVERITY: severe-vomiting every 30 minutes, vomits everything or nearly everything, with symptoms of dehydration 2. ONSET: 24 hours ago 3. FLUIDS: water 4. ABDOMINAL PAIN: no 5. DIARRHEA: no 6. CONTACTS: no 7. CAUSE: Patient taking antibiotic currently and she is not sure if this is contributing 8. HYDRATION STATUS: dry mouth, dry lips, weakness, unable to walk 9. OTHER SYMPTOMS: denies fever, headache, vertigo, or recent head injury 10. : no Protocols used: [id number] documented in this encounterMercy Health Perrysburg Hospital12-09-2022 Miscellaneous Notes* Telephone Encounter - Dennys Baez MD - 03/09/2022 2:07 PM EST Thank you. Compliance continues to be a significant issue. * Telephone Encounter - Vale Frias LPN - 03/09/2022 1:44 PM EST Spoke with nurse and today BP was 158/88 Temp 99.2 Hasn't picked up ATB yet called neighbor to sisal picker for her. Did get the increased dose of diltiazem and took that today also had HCTZ 12.5mg that she took. Apparently this was sent to pharmacy on 02/16/22 by hospitalist and never picked up. Spoke to Dr Baez and advised to discontinue the HCTZ. Nurse is aware and will notify patient. She also notes that patient is on fluid restriction and when she went out today she was drinking soda. She educated patient about her restriction and that she should not be using this nor the OJ she had prior as her fluid . Nurse will also be sure that the nephrology appt is scheduled and kept like our office has also been reminding her of. Advised nurse to contact office with anymore issues. * Telephone Encounter - Dennys Baez MD - 03/09/2022 11:49 AM EST I had here that she was taking diltiazem 180 once a day. We sent in a script for 240 once a day. Ok for above. * Telephone Encounter - Margaret Parkinson RN - 03/09/2022 10:20 AM EST Adry RN with [facility] calls to let provider know that patient was seen for recertification of care and patient will be seen for 2 wk 4. Adry asking if Diltiazem is to be increased to twice daily? And asking for a call back at [phone] to verify. Current order is diltiazem 240 mg CD 240 mg 24 hour capsule daily and was started on03/06/2022. I see nothing saying medication should be changed to twice daily and current order is CD? Please review and advise, Margaret Parkinson RN * Telephone Encounter - Katja Moya Ma - 03/08/2022 10:13 AM EST Per Care Everywhere pt went into [facility] ED on 03/07/22. Labs on 03/08/22. Katja Moya Ma * Telephone Encounter - Venkatesh Childers MD - 03/08/2022 9:41 AM EST Late entry: Called by [facility] at 8:30 03/07 regarding PRN visit. Patient found to be hypertensive 176/90 and noted she had decreased her diltiazem instead of increasing it. Had apparently been hospitalized recently for ALMA and was off her lasix. Since stopping, has not been checking weights and did not get scale as recommended. Has pitting edema to her hips now with increased SOB on walking and decrdeased lung sounds in her bases. Recommended return to ED for IV diuresis and close monitoring of her renal function. Nurse understood and would relay to patient. Can we please check to see if she did go to ED last night as directed? documented in this encounterMer[facility]12-09-2022 Miscellaneous Notes* Telephone Encounter - Vale Frias LPN - 03/09/2022 2:06 PM EST BMP from 03/08/22 ER visit printed and given for review. * Telephone Encounter - Nica Crockett Ma - 03/06/2022 4:56 PM EST Faxed lab order to [facility] lab outreach. Advised pt of dosage change of diltiazem. She will hold off physical therapy until bp is improved. Will keep encounter open to look for lab result Nica Crockett Ma * Telephone Encounter - Dennys Baez MD - 03/06/2022 4:29 PM EST I need bmp. If vn can't draw and she can't get out. See if we can have [facility] home health draw becauseis home bound. Increase diltiazem to 240 mg a day. Hold Physical therapy until bp is better. * Telephone Encounter - Katerine Vaughan LPN - 03/06/2022 4:00 PM EST Patient does have a visiting nurse, yesterday, but na has not approved any future visits. She understands having BP checked with her BP cuff if another Visiting nurse is approved to come out. Sheis unable to get out due to not able to get down the stairs and issues with transportation. She didsee nephology while in the hospital. Lab can by ordered by [facility] outreach program. Must say: patient is homebound and have start date and fax for results. [facility] d/c summary on pcp desk. Patient has an upcoming appointment scheduled with Benigno on 03/15/[address] Teixeira on 04/23/22 Again asking about should she start PT? Please review and advise. * Telephone Encounter - Dennys Baez MD - 03/06/2022 12:30 PM EST Does visiting nurse check her bp themselves? Are they able to verify if cuff is working correctly Is she having any symptoms? If so ER Needs a bmp this week miguel. Do we have her updated med list. Can we get the discharge summary from [facility]. I have no idea what was done. If she saw a [facility], frankly given her creatinine was above 4.0, they should be managing her bp and the numbers should be called to them. She needs to see one before then. * Telephone Encounter - Janessa Perez LPN - 03/06/2022 8:47 AM EST Pt called back to let you know she is scheduled at [facility] on 04-23-[address] Teixeira. Also pt wants to know if she should start Physical Therapy. Please advise. Janessa Perez LPN * Telephone Encounter - Daisy Matthews RN - 03/06/2022 8:13 AM EST Pt called in this morning and reports her BP was 186/96 HR 72 at 7 am, had her retake her BP resting and not talking and it was 182/109 HR 80 at 810 am. She reports it's a new BP cuff and doesn't know how accurate it is. Pt denies being symptomatic. She states she is supposed to restart PT today and doesn't know if she will be able to with her BP being that high. She reports she has a Nephrology appointment, but she has to call them to find out the time. The she reports she has to find out if her insurance covers [place] transportation to see if she can get a ride to the appointment, because [facility] transport can't take her any more as they aren't able to offer the assistance she needs. Triedto offer an appointment today, but patient would not have a way to get in. Please call and advise. * Telephone Encounter - Vale Frias LPN - 03/05/2022 5:12 PM EST Called and spoke with patient she is feeling fine no symptoms to warrant ER visit. Advised her thatmust consult with nephro regarding blood pressure. Also offered sooner visit with Dr Baez for hospital follow up but would have to arrange transport. At this time is unable to use [facility] transport because she requires more assistance than their drivers are able to provide for her. Faxing [facility] Home Health and asking them to help patient set up her nephrology visit and to consult them regarding patient BP and edema issues. * Telephone Encounter - Dennys Baez MD - 03/05/2022 4:38 PM EST Did she set up a follow up appt with nephro as ordered previously. Is she having any headache, chest pain, shortness of breath or worsening edema? Do we know what her previous renal function was in the hospital? If any of the above, to ER * Telephone Encounter - Brittney Almaguer LPN - 03/05/2022 3:11 PM EST Patient calling back with blood pressure reading at 3 pm was 187/101 right arm and pulse 77. * Telephone Encounter - Evangelina Hui RN - 03/05/2022 2:23 PM EST Carla nurse @ [facility] calling to let PCP know patient's BP is 180/88 today. Patient is asymptomatic. She did not recheck. She does not know when patient took medication. This nurse called patient. Patient states she took her AM medication at 0900. She is due to take afternoon dose of Clonidine now. She says she no longer takes Midodrine because her blood pressure hasbeen elevated. She is going to recheck her BP and call back. Evangelina Hui RN documented in this encounterMercy [facility]12-07-2022 Miscellaneous Notes* Telephone Encounter - Daisy Matthews RN - 03/07/2022 4:44 PM EST Adry [facility] Home Health airborne operations manager called and is notified of providers message and instructions.She voices understanding. Daisy Matthews RN * Telephone Encounter - Dennys Baez MD - 03/07/2022 4:28 PM EST How about they do prn visit and social work program coordinator get involved. We have not even seen her yet in hospital follow up * Telephone Encounter - Brittney Almaguer LPN - 03/07/2022 4:08 PM EST Adry [employer] marketing manager [facility] Home Health calling patient PT was put on hold 03/05 since blood pressure was elevated. Nurse was asking for blood pressure perimeters for the patient? Patient next skilled nurse visit is not until Friday 03/09. They go to patient home Saturday and Saturday per patient request. Patient told her she sits all day, her takes her walker away and puts it in the kitchen so she does not get up and fall. Patient gets neighbor to come over and help her to the bathroom. Nurse said patient is getting weak. Nurse was questioning if APS should be involved with this situation orpatient may need to go to prison facility. Nurse was asking if should have PRN visit order to go to patient home tomorrow to just check her blood pressure? Please advise documented in this encounterMercy Health [facility]12-05-2022 Miscellaneous Notes* Telephone Encounter - Evangelina Hui RN - 03/05/2022 5:34 PM EST Patient has been identified by name and date of : Yes Patient phones for refill(s): Requested Prescriptions Pending Prescriptions Disp Refills flash glucose sensor (FREESTYLE KRISTA 14 DAY SENSOR) kit 2 Kit 11 Sig: Use four times a day and as needed for blood sugar monitoring Date of last office visit with pcp: 02/09/22 Date of last office visit in primary care: Last 2 Encounter Wt Readings: Date: Wt: 02/09/2022 90.7 kg (200 lb) 01/16/2022 82.6 kg (182 lb) Previous labs/tests for medication: Diabetes: Hemoglobin A1C (%) Date Value 02/09/2022 9.6 01/29/2022 10.1 06/19/2021 9.6 12/27/2020 9.5 Please advise. Thank you. Evangelina Hui RN documented in this encounterMercy Health [facility] Hospital12-02-2022 Miscellaneous Notes* Telephone Encounter - Vale Frias LPN - 03/02/2022 4:12 PM EST Patient is notified and verbalizes understanding. * Telephone Encounter - Dennys Baez MD - 03/02/2022 4:09 PM EST She should not due to her kidneys * Telephone Encounter - Enedelia Baker LPN - 03/02/2022 4:05 PM EST Pt calls states was told to stop lasix. But now both her thighs are filling up with fluid again. She is asking for Dr. Ahmadi approval to take the last 4 she has as directed. Please advise documented in this encounterMercy Health [facility]12-02-2022 Miscellaneous Notes* Telephone Encounter - Pau Emanuel RN - 03/02/2022 2:04 PM EST Adry with [facility] HH calling and states she did a resumption of Nursing HH care for patient. Patient was recently discharged from [facility] on 02/28/22 with diagnosis of UTI, acute kidney injury and CKD Stage4. Adry reports patient was taken off lasix. Pt has ER/HOSP F/U with Benigno Celison on 03/15/22. Adry states patient's BP today was 150/88. All other vitals good. Breathing is non-labored. SOB with moderate exertion. Pt reports feels more weak. Patient has swelling in her legs below her knees and they are weeping fluid. Adry was able to get orders from the wound center. Pt does not have weight scale at home and is working on getting one to weigh self daily. No call back needed to Adry unless provider has other instructions/orders. Thank you. documented in this encounterMercy Health [facility] Hospital11-30-2022 Miscellaneous Notes* Telephone Encounter - Vale Frias LPN - 02/28/2022 1:27 PM EST Signed and faxed. * Telephone Encounter - Da Saucedo LPN - 02/28/2022 9:53 AM EST Patient has been identified by name and date of : Yes Type of form: Home Health Care Orders Form received via: Fax When form is completed, fax form to fax number provided. Form has been forwarded to: Provider's mailbox. Provider name: Dr. Nestor Saucedo LPN documented in this encounterMercy Health [facility] Hospital11-23-2022 Miscellaneous Notes* Telephone Encounter - Daisy Matthews RN - 02/21/2022 3:35 PM EST Charleen PT with [facility] called in and reports they will be seeing patient twice a week for four weeks. They will be working on lower extremity strength, transfer/gait training, and balance/endurance. documented in this encounterMercy Health [facility] Hospital11-21-2022 Miscellaneous Notes* Telephone Encounter - Pau Emanuel RN - 02/19/2022 1:45 PM EST Chelsea with [facility] calling to report patient's BP is out of parameters: BP 162/80. No symptoms. Patient takes clonidine three times a day and had not taken 12p dose yet- nurse states she encouraged pt to do so which she recently did. No call back needed unless provider has orders. PH: [phone]. Thank you. documented in this encounterMercy Health Perry[facility] Hospital11-21-2022 Miscellaneous Notes* Telephone Encounter - Bharati Mas LPN - 02/19/2022 8:28 AM EST Tammy with [facility] calls to report pt was dc'd from hospital on 02/16 with orders to have a follow up bmp done in 3-5 days. Tammy reports they can do the lab if order is faxed to them. Order already in [facility]. Order faxed to: [phone] as requested. Bharati Mas LPN documented in this encounterMercy Health [facility]11-16-2022 Miscellaneous Notes* Telephone Encounter - Dennys Baez MD - 02/14/2022 9:41 AM EST Staff checked, she did go back in as Benigno directed finally. Now in hospital * Telephone Encounter - Jannette Fernandez RN - 02/14/2022 9:06 AM EST TC patient, left message on voicemail for patient to call back and speak with a triage nurse regarding how patient is doing. Jannette Fernandez RN * Telephone Encounter - Dennys Baez MD - 02/14/2022 8:45 AM EST Can we check and see what is going on with patient. I just figured out she did not follow our recommendations from last week. See if went to [facility] er after I told her last week Both Benigno had recommend ER over the weekend due to large drop in hb and significant weight gain which could be related to renal failure and chf. Both of these likely will result in admission and it appears she did not do what either of us recommended which could result in complications including . Both of us even called the ER anticipating possible admit. Also had abnormal chest xray she has been sitting on all weekend against our recommendations! Get current eval. How is swelling Shortness of breath or chest pain? Any edema? If still refuses eval. Make sure she understands risks. Needs stat h and h since might need transfusion. documented in this encounterMercy Health [facility] Hospital11-14-2022 Miscellaneous Notes* Telephone Encounter - Nica Crockett Ma - 02/12/2022 5:05 PM EST Patient notified of provider message * Telephone Encounter - Usha Pastrana PA-C - 02/12/2022 4:57 PM EST Go to [facility] ED if that's where she can get transportation. Thanks, Benigno Pastrana PA-C * Telephone Encounter - Usha Hernandez RN - 02/12/2022 10:56 AM EST Patient checking on Benigno osuna. Reports she is feeling the same. Reports [facility] tells her she needs to give 2 day notice for transportation to ER. Patient agreeable to call [facility] if condition worsens, but prefers to go to [facility] if possible. * Telephone Encounter - Brittney Almaguer LPN - 02/12/2022 9:27 AM EST Patient calling back she has no transportation to go to [facility] wanted to let Benigno Pastrana know. * Telephone Encounter - Usha Hernandez RN - 02/12/2022 8:31 AM EST Patient reports she is feeling worse and does not have a ride to [facility]. Want's to go to [facility], not [facility]. Aware [facility] will only take her to nearest hospital, which is [facility], and has alreadybeen there twice. Reports she did not sleep at all last night. When she lays down she becomes wheezy and SOB. Reports she has gained 20 lbs in the last 2 weeks. Reports she is very weak, dizzy, lightheaded, with constant MAGANA, legs are swollen to abdomen- non pitting. Walking causes her to feel nauseous. Reports she is able to walk with rolator but so weak, was only able to go to bathroom, and put clothes on, now sitting in a chair. Reports she is urinating a lot of clear yellow urine and BM appear normal with no evidence of blood. BS last night at 9 pm 195. Unable to check BS today, ran out oflibre sensors (which should arrive today) and has no batteries for her glucometer. Hemoglobin on 02-09-22 was 7.4. Patient will call Amanda [facility] to see if they can help her with ride to [facility]. Will let MARIE Pelaez, know if they are unable to help. Asking if there is anything Benigno can do to help her get ride to [facility]. Please advise patient. * Telephone Encounter - Usha Pastrana PA-C - 02/10/2022 10:49 AM EST Phoned patient regarding ED visit yesterday. Patient identifies she really is unable to do much, very low energy, short of breath with activity,continued swelling. I discussed with the patient anemia worsening which does place her at higher risk for congestive heart failure especially on top of her current renal failure which is declining. She has not yet made appointment with rewards consultant Dr. Terry but intends to do so. I strongly advised her that we need stool for occult blood to be certain that she is not bleeding in the GI tract. Labs in ER demonstrated hemoglobin 7.9, hematocrit 26.2, PLT 215, RDW 52.8 with normocytic indices.BUN 42, CRE 2.76 with estimated GFR 19, glucose 240, low albumin at 3.0. Urine demonstrated proteinof 100, positive ketones and greater than 100 WBCs, 0 bacteria, ketone 15. She agrees to schedule renal follow up Saturday. Recommend if worse go to [facility]. Benigno Pastrana PA-C documented in this encounterMercy Health [facility] Hospital11-11-2022 History of Present illness Narrative* Jacquie Cox, OD - 02/09/2022 3:06 PM EST 1. 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 Dacosta for follow-up(supposed to follow-up 07/2021) Panretinal laser photocoagulation (PRP) right eye 06/29/[address] Dacosta S/p avastin both eyes 1 year ago-unplanned extension due to hip sx Improved vision with avastin Previous vitreous hemorrhage-resolved both eyes 2. Combined forms of age-related cataract of both eyes Slightly worse-monitor 3. Refractive error Continue with current glasses until evaluation and management of DME by Dr. Dacosta Recommended follow-up MIGUEL with Dr. Praneeth Cox, OD February 09, 2022 3:06 PM documented in this encounterMercy Health [facility] Hospital11-11-2022 Miscellaneous Notes* Telephone Encounter - Dennys Baez MD - 02/09/2022 2:50 PM EST Thanks!. [facility] ER notified. * Telephone Encounter - Jacquie Cox, OD - 02/09/2022 2:46 PM EST FYI- patient just left for [facility] ER * Telephone Encounter - Ceci Richard - 02/09/2022 2:29 PM EST MONTEZ Vargas notified Dr. Cox's office at [facility] that patient needs to go to ER due to drop in hemoglobin. Dr. Cox's office notified patient at time of her appointment and she verbalized understanding. Ceci Richard * Telephone Encounter - Dennys Baez MD - 02/09/2022 1:38 PM EST Her hb has dropped to 7.4 from 10 which is a huge drop. Given her 18 lb weight gain, edema and worsening edema, needs to go to Er of choice. We can send labs and my note from today documented in this encounterMercy Health [facility] Hospital11-11-2022 History of Present illness Narrative* Dennys Baez MD - 02/09/2022 11:40 AM EST Patient presents with: Edema: Bilateral leg edema HPI: Patient presents today for office visit for follow up. Saw Benigno at last ov. Has been referred back to endo for her sugars. Has a hx of significant automnomic neuropathy so have to be careful with bp. Has had diltiazem increased but did not start it yet. She is to hold her midrodrine if bp is up. Is to see cardiology soon. Was seen by Dr. Terry due to herworsening renal function but has been unable to make an appt. No dizziness or syncope. Bilateral leg swelling started several week ago. Thigh area is what is new to her has been having trouble with it for about 1 month. Is using wraps on her lower legs from wound care which is likely exacerbating the edema. They had discussed perhaps wrapping her thighs as well. Is primarily in a wheel chair. Denies chest pain or shortness of breath. Seen at ER, renal function is reduced but stable. No signs of chf per their report however xray shows ? Interstial edema when I review it. had duplexes performed which were negative. Diuretics not used due to her renal function. She is on lyrica, diltiazem can contribute. Has an appt soon with endo due to her sugars and cardiology. Her sugars have been a little better. Insurance has not approved any further home therapy for her. MEDICATIONS: Current Outpatient Medications Medication Sig dilTIAZem CD (CARDIZEM CD, CARTIA XT) 240 mg 24 hr capsule Take 1 capsule by mouth once daily. insulin glargine (LANTUS SOLOSTAR, BASAGLAR KWIKPEN) 100 unit/mL (3 mL) Inject 35 Units subcutaneously daily at bedtime. insulin lispro (HUMALOG KWIKPEN INSULIN) 100 unit/mL 8 units sq TID, and sliding scale. Maximum 50uper day ferrous sulfate 325 mg (65 mg iron) tablet Take 325 mg by mouth daily with breakfast. ondansetron orally disintegrating (ZOFRAN ODT) 4 mg disintegrating tablet Take 1 tablet by mouth every 8 hours as needed. cloNIDine HCl (CATAPRES) 0.3 mg tablet Take 1 tablet by mouth three times daily. sertraline (ZOLOFT) 50 mg tablet Take 1 tablet by mouth once daily. atorvastatin (LIPITOR) 40 mg tablet Take 1 tablet by mouth daily at bedtime. insulin needles, DISPOSABLE, (PEN NEEDLE) 31 gauge x 5/16 Use one needle per dose. Twice per day. pantoprazole DR (PROTONIX) 40 mg tablet Take 1 tablet by mouth daily before breakfast. Take on empty stomach, 1/2 hr before meal. flash glucose sensor (FREESTYLE KRISTA 14 DAY SENSOR) kit Use four times a day and as needed for blood sugar monitoring blood sugar diagnostic (BLOOD GLUCOSE TEST) test strip Test blood sugar(s) 4 times daily. Dx: OtherDM Code E13.65 Insulin: Yes Lancets lancets Test blood sugar(s) 4 times daily. Dx: Other DM Code E13.65 Insulin: Yes blood sugar diagnostic (FREESTYLE LITE STRIPS) test strip Test blood sugar(s) 4 times daily. Insulin: Yes (Patient taking differently: Test blood sugar(s) 4 times daily. Insulin: Yes) alcohol swabs (ALCOHOL PADS) Use to prior to checking blood sugar 4 times daily. polyethylene glycol 3350 (MIRALAX) 17 gram/dose powder For colonoscopy prep bisacodyl EC (DULCOLAX, BISACODYL,) 5 mg EC tablet Take 1 tablet by mouth as directed. Take two (2)each time, as explained on the instruction sheet provided. magnesium oxide (MAG-OX) 400 mg (241.3 mg magnesium) tablet Take 1 tablet by mouth twice daily. flash glucose scanning reader (FREESTYLE KRISTA 14 DAY READER) 1 Each four times daily. traMADol (ULTRAM) 50 mg tablet Take 50 mg by mouth every 8 hours as needed. meclizine (ANTIVERT) 25 mg tab Take 1 tablet by mouth every 6 hours as needed (dizziness). midodrine (PROAMATINE) 2.5 mg tablet Take 1 tablet by mouth three times daily. Hold for systolic BPabove 180 [facility] (BLOOD PRESSURE CUFF) [facility] Use as directed. Blood Pressure Monitor kit Use as directed pregabalin (LYRICA) 50 mg capsule Take 50 mg by mouth three times daily. COMPOUNDED PRESCRIPTION Quad cane blood sugar diagnostic (BLOOD GLUCOSE TEST) test strip Test blood sugar(s) 4 times daily. Dx: Type 2 DM - Uncontrolled E11.65 Insulin: Yes aspirin 81 mg chewable tablet Take 1 tablet by mouth once daily. Lancets lancets Test blood sugar(s) 4 times daily. Dx: Type 2 DM - Uncontrolled E11.65 Insulin: Yes No current facility-administered medications for this visit. ALLERGIES: ALLERGIES Allergen Reactions Metformin GI Upset PAST MEDICAL HISTORY Diagnosis Date Concussion 09/2008 - from fall at work Diabetes (HCC) Gastroparesis due to DM (HCC) 09/17/2012 Genital herpes 10/28/2009 Migraine without aura 08/19/2008 Orthostasis Pelvic pain in female 07/29/2012 PMH - PAST MEDICAL HISTORY OF TMJ Vertigo of central origin 04/24/2012 PAST SURGICAL HISTORY Procedure Laterality Date COLONOSCOPY FLX DX W/COLLJ SPEC WHEN PFRMD 12/24/2012 Colonoscopy ESOPHAGOGASTRODUODENOSCOPY TRANSORAL DIAGNOSTIC 01/31/2012 EGD LAPS SURG CHOLECYSTECTOMY W/CHOLANGIOGRAPHY 02/01/2012 Normal IOC PAST SURGICAL HISTORY OF TMJ replacements x 2 PAST SURGICAL HISTORY OF Jaw surgery PAST SURGICAL HISTORY OF PAST SURGICAL HISTORY OF left hip pinned FAMILY HISTORY Problem Relation Age of Onset Hypertension Mother Lipids Mother Cancer Father Lymphoma, Leukemia Emphysema Father Cataract Father Diabetes Paternal Grandmother Breast Cancer Paternal Aunt Social History Tobacco Use Smoking status: Never Smokeless tobacco: Never Vaping Use Vaping Use: Never used Substance Use Topics Alcohol use: No Drug use: No Reviewed current medications, allergies, past medical history, surgical history, family history andsocial history today. REVIEW OF SYSTEMS All other reviewed and negative other than HPI. VITALS: BP 172/82 Pulse 75 Wt 90.7 kg (200 lb) LMP 09/30/2008 SpO2 97% BMI 33.28 kg/m Last 4 Encounter Wt Readings: Date: Wt: 02/09/2022 90.7 kg (200 lb) 01/16/2022 82.6 kg (182 lb) 06/30/2021 84.4 kg (186 lb) 06/19/2021 86.1 kg (189 lb 12.8 oz) PHYSICAL EXAMINATION: General appearance: Well appearing, alert, in no acute distress, well-hydrated, well nourished. In wheelchair. Has gained 18 lbs in last three weeks. Does not own a scale at home. Skin: Skin color, texture, turgor normal, no suspicious rashes or lesions Lungs: Lungs clear to auscultation. No wheezing, rhonchi, rales Heart: RRR without murmur, gallop, or rubs. No ectopy Abdomen: Normal abdominal exam, Abdomen soft, non-tender. Bowel sounds normal. No masses, organomegaly Extremities: 2 plus edema of thighs. Wraps on lower legs ASSESSMENT/PLAN: 1. Edema, unspecified type - ICD9: 782.3, ICD10: R60.9 (primary diagnosis) - XR CHEST 2V FRONTAL/LAT - CBC + DIFF - BASIC METABOLIC PNL - NT PRO BNP 2. Orthostatic hypotension - ICD9: 458.0, ICD10: I95.1 - MIDODRINE 2.5 MG TABLET 3. Weight gain - ICD9: 783.1, ICD10: R63.5 - XR CHEST 2V FRONTAL/LAT - CBC + DIFF - BASIC METABOLIC PNL - NT PRO BNP 4. Hypertension - ICD9: 401.1, ICD10: I10 5. Stage 3b chronic kidney disease (HCC) - ICD9: 585.3, ICD10: N18.32 - CONSULT TO NEPHROLOGY 6. 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, unspecified laterality (HCC) - ICD9: 250.51, 362.07, 362.02, ICD10: E10.3519 7. Chronic pain syndrome - ICD9: 338.4, ICD10: G89.4 - PREGABALIN 50 MG CAPSULE Discussion: challenging treatment and evaluation. Will recheck stat labs and xray to rule out worsening renal function and or chf as a cause, given her weight gain and significant edema. Decrease midodrine and lyrica to help with bp and swelling respectively. Decrease diltiazem although has not picked up new dose yet. Elevate legs prn. Cannot give lasix unless I am sure where renal function is. She definitely needs to be seeing nephrology. If there are significant changes on xray or labs, to ER and may require admission. See cardiology and endo. Monitor sugars and bp over the weekend. May need to consider scale at home for daily weights. Monitor for worsening orthostasis, bp and renal function. Red flags for re-assessment reviewed with patient in detail. Dennys Baez MD RTO in two weeks documented in this encounterMer[facility]11-10-2022 Miscellaneous Notes* Telephone Encounter - Vale Frias LPN - 02/08/2022 3:27 PM EST Patient is now scheduled to see Dr Cxo. * Telephone Encounter - Pau Emanuel RN - 02/08/2022 2:51 PM EST Patient asking for message to be sent to Dr. Baez's nurse, specifically Vale. She states she would like to see an eye doctor for an evaluation due to her having diabetes. She isasking if Dr. Baez's nurse can assist her with this. Pt has appt with PCP tomorrow and advised pt to ask questions at that time for best assistance. Pt asking if this message could be sent to Vale today. Please advise patient. Thank you. documented in this encounterMercy Health [facility]11-09-2022 Miscellaneous Notes* Telephone Encounter - Daisy Matthews RN - 02/07/2022 3:36 PM EST Pt called and is notified of providers message and instructions. Pt voices understanding. She states she has 3M from the wound center which is their form of compression 3 layers deep. Pt states that she is elevating legs to keep swelling down. States the swelling is the same as when she was at the ER. Pt wanted to let Vale know that she found transportation and would be able to make it to the 02/09 appointment at 1140. Daisy Matthews RN * Telephone Encounter - Vale Frias LPN - 02/07/2022 3:24 PM EST Is wearing wraps on her legs for wound center. Not able to get up and around to do much right now. Talked about limited activity causing some of the issue. Also talked about importance of elevated legs. Patient understands both issues. States that she has been trying to reach Dr Terry's office to schedule follow up because hospital told her that is who would monitor any type of diuretic due to kidney issues. Told patient this is correct diuretic would stress kidney and not sure this is something she could handle. She is scheduled to come see Dr Baez now on Saturday. * Telephone Encounter - Dennys Baez MD - 02/07/2022 3:12 PM EST They already evaluated for that at ER this past week. Is it any worse. Is she corie support hose. If not, she should be * Telephone Encounter - Janessa Perez LPN - 02/07/2022 2:05 PM EST Spoke with pt and information listed below given. Pt verbalizes understanding. apt booked for end of month. While talking to the pt she states having bilateral leg swelling and was told by PT to call her family doctor to have her legs looked at soon. When speaking with pt she and states the following: SWELLING, LEG/EDEMA ONSET: lower part of legs swelling x 1 month the upper part of legs x 1 week LOCATION: bilateral legs SEVERITY: moderate REDNESS: no PAIN: no FEVER: no CAUSE: due to elevated BP she thinks MEDICAL HISTORY: none RECURRENT SYMPTOMS: yes OTHER SYMPTOMS: none DENIES: chest pain and difficulty breathing, area warm to touch Pt scheduled for office visit Saturday02-09-22. Sooner apt declined due to transportation. * Telephone Encounter - Dennys Baez MD - 02/07/2022 1:45 PM EST Needs diltiazem increased and follow up in one month * Telephone Encounter - Janessa Perez LPN - 02/07/2022 1:34 PM EST Alexandria with [facility] HH, OT calling with blood pressure reading for pt today at 1:10 pm. 167/86 heart rate60. Pt is asymptomatic. Alexandria also states pt was to wound care yesterday and they took her BP x 3 and all three were high. Pt was d/c from [facility] OT today. Further [facility] nursing visits have been denied and PT is waiting to hear if they are able to continue with pt. Pt has taken her medications today and also had taken her medications yesterday also. Please advise pt. Janessa Perez LPN documented in this encounterMercy Health [facility]11-07-2022 Miscellaneous Notes* Telephone Encounter - Vale Frias LPN - 02/05/2022 1:42 PM EST Notified that ok to continue nursing. * Telephone Encounter - Dennys Baez MD - 02/05/2022 1:35 PM EST Ok. Thank you. * Telephone Encounter - Ceci Richard - 02/05/2022 1:11 PM EST Spoke with Chelsea from [facility] home health who states patient acted like she was going to make her follow up with Dr. Cortes but has not. Nothing scheduled. Joceline said she would reiterate importance ofkeeping her follow up with endo to patient when she sees her next. Needs verbal for continued prison. 1x weekly for 4 weeks. Ok? Ceci Richard * Telephone Encounter - Dennys Baez MD - 02/05/2022 12:08 PM EST Does she have follow up with endo? Had been seeing them * Telephone Encounter - Jannette Fernandez RN - 02/05/2022 11:40 AM EST Joceline calling from [facility] to report plan of care for patient and Long-Term will continue tovisit patient 1 time a week for 4 weeks. Patient continues to have problems with Blood sugars. Patient currently taking 35 units of Lantus in the morning and 8 units of Humalog three times a day. Patient reports that her fasting blood sugar is still in 50s. Patient's 7 day average of sugars is 188.14 day average is 169. Patient reports drinking a protein shake at night. Please review and Advise, Jannette Fernandez RN documented in this encounterMercy Health [facility]11-04-2022 Miscellaneous Notes* Telephone Encounter - Ceci Richard - 02/02/2022 1:24 PM EDT Spoke with patient and informed and verbalized understanding. States she will wait for ride and then head to [facility]. Ceci Richard * Telephone Encounter - Dennys Baez MD - 02/02/2022 1:15 PM EDT Kidneys are worse. Given her edema from yesterday, recommend er. * Telephone Encounter - Vale Frias LPN - 02/02/2022 1:11 PM EDT CMP scanned into system today as requested. documented in this encounterMercy Health [facility]11-03-2022 Miscellaneous Notes* Telephone Encounter - Pau Emanuel RN - 02/01/2022 4:12 PM EDT Patient returned call and given provider's message below. She declined to make appt. She denies redness or warmth in legs or shortness of breath, but aware to go to ER if this occurs. Pau Emanuel RN * Telephone Encounter - Vale Frias LPN - 02/01/2022 11:53 AM EDT Left message for Layne to call office. * Telephone Encounter - Dennys Baez MD - 02/01/2022 10:28 AM EDT Needs seen by one of us. If redness or warmth in legs or shortness of breath, to ER * Telephone Encounter - Brittney Almaguer LPN - 02/01/2022 10:18 AM EDT Patient calling asking for rx for water pill, she had increased edema anshul legs, feet to thighs. Shedoes not have a scale to weigh herself. Patient said she has no transportation to get here for appt, she can not get down her steps either. Patient uses [facility] for her pharmacy. Patient said she has been going to the wound center. Please advise documented in this encounterMercy Health [facility]11-02-2022 Miscellaneous Notes* Telephone Encounter - Maria T Richmond - 01/31/2022 8:21 AM EDT Called PT LVM to call back and schedule with Luis. Maria T HERRMANN * Telephone Encounter - Ceci Richard - 01/30/2022 1:48 PM EDT Patient informed. Has not seen Endo or even called to schedule. Sending to schedulers to help assist in that appointment. Has follow up with Dr. Castrejon for procedure. Will continue Iron. Advised of labs to be done again in one month. Patient verbalized understanding. Ceci Richard * Telephone Encounter - Dennys Baez MD - 01/30/2022 11:29 AM EDT Sugar is out of control. She needs to make sure she has a follow up with endo. Does she have appt set up for follow up? Her anemia is still persistent. In Benigno's note he mentioned she was to follow up with Dr. Lucía. Make sure that is set up and that she stay on iron. Recheck labs in one month documented in this encounterMercy Health [facility]10-31-2022 Miscellaneous Notes* Telephone Encounter - Vale Frias LPN - 01/29/2022 2:08 PM EDT Order was sent to outreach lab as requested. New Lantus order given to nurse and she will notify patient. * Telephone Encounter - Dennys Baez MD - 01/29/2022 1:20 PM EDT Cmp ordered. Ok to take lantus in am. Decrease to 35 units. Call sugars in one week * Telephone Encounter - Jannette Fernandez RN - 01/29/2022 12:54 PM EDT Joceline from [facility] calls to report that she was able to draw CBC and Hgb A1C. Patient's veins weretiny and clotted off. Joceline was unable to draw CMP. Joceline states that new order for CMP will have to be ordered. Joceline will have outpatient lab draw tomorrow. Joceline reports that patient also reports that her blood sugars are still running on the low side of 40-50s even with the decrease in insulin. Patient asking if she can take Lantus in morning. Please review and advise, Jannette Fernandez RN documented in this encounterMercy Health [facility] Hospital10-24-2022 Miscellaneous Notes* Telephone Encounter - Nica Crockett Ma - 01/22/2022 4:15 PM EDT MARIA L Aguirre at [facility]. She will have them draw labs next saturday * Telephone Encounter - Usha Pastrana PA-C - 01/22/2022 3:52 PM EDT Is she symptomatic with low blood sugar? Last hgba1c 06/19/2021 9.6% Please complete outstanding lab. Glargine insulin is basal component, lasts 36-42 hours to provide even level all day. Drop to 37u qHS Drop insulin Lispro coverage to 8u three times a day Please monitor QID AC+HS blood sugars x 1 week and report results. Thanks, Benigno Pastrana PA-C * Telephone Encounter - Usha Hernandez RN - 01/22/2022 9:15 AM EDT Carla- [facility]- reporting to pcp- patient has a Krista system, and reported has had a few low BS readings through the night the past couple of weeks. A couple times in the night BS dropped to 40's. The 7 day average on Krista was 132. This morning fasting was 74. Reports at last hospital stay, hospitalincreased lantus from 23 to 40. Asking provider if they can change the time patient takes the lantus, to in the morning, or decrease lantus dose? Carla did advise patient to keep a BS log- write down all of BS readings in this log. Please phone Carla with reply. documented in this encounterMercy Health [facility]10-20-2022 Miscellaneous Notes* Telephone Encounter - Vale Frias LPN - 01/18/2022 3:37 PM EDT New home monitor was shipped out to her today and should arrive on Saturday. Was at wound center today and BP was checked there doesn't remember reading but was ok. She will start checking BP once new monitor arrives. * Telephone Encounter - Vale Frias LPN - 01/17/2022 5:41 PM EDT Orders for patient to get home cuff have been sent today. Left message for patient to call office. * Telephone Encounter - Dennys Baez MD - 01/17/2022 5:21 PM EDT Check with Layne if got her home cuff yet. She has extreme variations in bp and orthostasis. Has she checked any other home bp's Still lightheaded on standing? * Telephone Encounter - Brittney Almaguer LPN - 01/17/2022 3:38 PM EDT Valentina from [facility] Home Health PT calling she was at patient home at 1230 pm, patient had just woken up blood sugar was 59 and BP 181/91 pulse 85. Her boyfriend had just come home from work, fed her 2 twinkies and lunch meat ham, blood sugar went up to 87. Repeat after PT bp was 176/96 pulse 92 at 115pm. Patient had not taken any of her medications at all. BP was above perimeters. Please advise documented in this encounterMercy Health [facility] Hospital10-18-2022 Miscellaneous Notes* Telephone Encounter - Nica Crockett Ma - 01/16/2022 10:55 AM EDT Patient is currently in office for visit. * Telephone Encounter - Vale Frias LPN - 01/12/2022 5:11 PM EDT Call to patient herself since can't reach nurse. Patient will monitor over the weekend. Nurse comesback on Saturday. They will contact us back with readings. * Telephone Encounter - Vale Frias LPN - 01/12/2022 4:10 PM EDT This number rings busy will need to attempt again later. * Telephone Encounter - Dennys Baez MD - 01/12/2022 3:55 PM EDT She has severe orthostasis and will often bounce up and down. Recheck bp next visit and call with results. If Layne still has home cuff, have her track bid and send list on or Sat. * Telephone Encounter - Brittney Almaguer LPN - 01/12/2022 2:58 PM EDT Jannet from [facility] Home Health calling to report patient had fall today. Patient feels weak and unsteady fall in her laundry room. Abrasion on right knee 1.5 cm x 1.5 cm from crawling to get help to get back up. Nurse is applying neosporin and bandaid. Asking for wound care verbal orders, and verbal order for prison 1 visit weekly for 4 weeks, working on wound, UTI prevention. Patient had been released from hospital for UTI yesterday. Reporting blood pressure out of perimeters at 156 pm 179/96 pulse 84. Please advise documented in this encounterMercy Health [facility] Hospital10-18-2022 Instructions* Patient Instructions* Usha Pastrana PA-C - 01/16/2022 10:24 AM EDT Up for Suki on-line and invite Dr. Cortes so he can view all your blood sugars. Please push fluids with water, non-caffeinated and non-alcoholic beverages. ' documented in this encounterMercy Health Perrysburg Hospital10-18-2022 History of Present illness Narrative* Usha Pastrana PA-C - 01/16/2022 10:00 AM EDT 61 year old female with c/o Hospital discharge follow-up Facility: [facility] Date of admission: 01/06/2022 Date of discharge: 01/10/2022 Prehospitalization work-up: 10/06/[address] [facility] with symptoms of hypoglycemia, not feeling well, moderate in severity with nearly negative review of systems, identified as not good informant . Review of systems only positive for identification of weakness Physical exam: Vital signs 98.5 F-80-17-178/79-92% RA Exam essentially normal, note made of flat affect and depressed mood. Identifies she was concerned about HHN K, possible DKA. CBC remarkable for hemoglobin 8.3, HCT 25.9, absolute neutrophil elevated 8.1 Chemistries remarkable for sodium 129, potassium 5.9, chloride 95, CO2 20.0. BUN 46, CRE 3.23, ED GFR 19. Glucose 622. Calcium was normal at 8.8, troponin 1 normal at 6. Acetone was negative. UA: Specific gravity 1.005-protein 100-glucose 1000-WBC greater than 100, 1+ bacteria EKG: Normal sinus rhythm without ischemic change. Chest x-ray no acute disease. MDM: Concern for HH NK possible early DKA, Howard placed for accurate ERNESTO's, 1 L normal saline given. Admitted ICU Admission assessment and plan: 1. Hyperglycemia, known diabetic, likely HH NK: Believed to be precipitated by UTI, anion gap not elevated, bicarb 28. Admitted to PCU with insulin drip started. N.p.o. status. 2. UTI: Urine and blood cultures ordered, started on IV ceftriaxone 3. Hyperkalemia: Potassium 5.9 nonhemolyzed, given Kayexalate with return potassium of 5.4, will continue Kayexalate monitor. 4. AKA on CKD stage IIIa: Creatinine 3.33 on admission with baseline of 1.18. Likely prerenal due to decreased intake: Hydrate with fluids and trend. Consider renal ultrasound. 5. Hyponatremia sodium 129 likely pseudohyponatremia related to hyperglycemia: Monitor. 5. Hypertension: Resume home blood pressure medicines with clonidine and Cardizem, IV hydralazine as needed. 6. Chronic anemia: Hemoglobin 8.3, baseline 8-9, anticipate follow-up with PCP on outpatient basis 7. GERD: On pantoprazole 8. Question atrial fibrillation: On Cardizem indication unclear 9. DVT prophylaxis with Lovenox renally dosed 10. CODE STATUS full code Consultations 01/06/2022 wound care nurse 01/09/[address] Gilbert 01/10/2022 GI Urine culture grew Enterobacter cloacae, IV ceftriaxone was switched to Levaquin. Blood culture x2 no growth in 48 hours. Patient had some improvement in renal status. Hemoglobin A1c 13.9: Continued on home insulin with changes in dosing. Outpatient colonoscopy recommended for iron deficiency anemia. Seen by OT and PT. Consult with nephrology 1 to 2 weeks. Discharge labs: 01/10/2022 WBC 8.7-Hgb 8.5-HCT 27.6-PLT 313 01/10/2022 NA 132L-CL 99-K5.1-CO2 24.0-BUN 42H-CRE 2.78H-PLT 469 01/09/2022 random urine total protein 74.4H 01/09/2022 renal ultrasound: WNL Medication reconciliation: New prescriptions: Insulin glargine 40 units subcu at bedtime Ferrous sulfate 325 mg tablet daily #30/0 Discontinued: Insulin glargine 22 units nightly Continue medications: Diltiazem 180 daily daily Ondansetron 4 mg every 4 hours as needed Pantoprazole 40 mg daily AC Atorvastatin 40 mg daily nightly Aspirin 81 mg daily Tylenol 650 mg every 6 hours as needed for fever or pain Cyclobenzaprine 5 mg p.o. 3 times daily as needed: not current Clonidine 0.03 mg p.o. 3 times daily Insulin lispro 10 units subcu 3 times daily with meals Pregabalin 75 m mg p.o. 3 times daily Tramadol 50 mg p.o. twice daily as needed Sertraline 50 mg p.o. daily Current status: Has seen Dr. Castrejon already to schedule colonoscopy: need to schedule with [facility] Started PT at home from [facility]. Also home care, nursing for heel wound which she states she has had for a long time. Checking blood sugars at home, Krista lund Had one low blood sugar for which she drank regular can of Dr Osman Last 7 days average 198, range 158-223 Last 90 days average blood sugar 366 06/30/[address] Cortes Appetite is getting better Some nausea, some vomiting, last emesis 5 days ago. Still getting dizzy, ramos on couch due to fear of falls. Yesterday 4 different appointments, unable to drive. Receiving OT, PT: working on upper and lower body strength . Bowels: slow , BM twice in last week, normal texture. Using dulcolax over last 2 weeks 3-4 times Urine flow normal, mild incontinence once in awhile. HISTORIES FAMILY HISTORY Problem Relation Age of Onset Hypertension Mother Lipids Mother Cancer Father Lymphoma, Leukemia Emphysema Father Cataract Father Diabetes Paternal Grandmother Breast Cancer Paternal Aunt PAST MEDICAL HISTORY Diagnosis Date Concussion 09/2008 - from fall at work Diabetes (HCC) Gastroparesis due to DM (HCC) 09/17/2012 Genital herpes 10/28/2009 Migraine without aura 08/19/2008 Orthostasis Pelvic pain in female 07/29/2012 PMH - PAST MEDICAL HISTORY OF TMJ Vertigo of central origin 04/24/2012 PAST SURGICAL HISTORY Procedure Laterality Date COLONOSCOPY FLX DX W/COLLJ SPEC WHEN PFRMD 12/24/2012 Colonoscopy ESOPHAGOGASTRODUODENOSCOPY TRANSORAL DIAGNOSTIC 01/31/2012 EGD LAPS SURG CHOLECYSTECTOMY W/CHOLANGIOGRAPHY 02/01/2012 Normal IOC PAST SURGICAL HISTORY OF TMJ replacements x 2 PAST SURGICAL HISTORY OF Jaw surgery PAST SURGICAL HISTORY OF PAST SURGICAL HISTORY OF left hip pinned Social History Tobacco Use Smoking status: Never Smokeless tobacco: Never Vaping Use Vaping Use: Never used Substance Use Topics Alcohol use: No Drug use: No ACTIVE PROBLEM LIST 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 90 tablet 5 sertraline (ZOLOFT) 50 mg tablet Take 1 tablet by mouth once daily. 30 tablet 5 atorvastatin (LIPITOR) 40 mg tablet Take 1 tablet by mouth daily at bedtime. 30 tablet 11 insulin needles, DISPOSABLE, (PEN NEEDLE) 31 gauge x 5/16 Use one needle per dose. Twice per day. [address] (PROTONIX) 40 mg tablet Take 1 tablet by mouth daily before breakfast. Take on empty stomach, 1/2 hr before meal. 30 tablet 11 dilTIAZem CD (CARDIZEM CD, CARTIA XT) 180 mg 24 hr capsule Take 1 capsule by mouth once daily. 90 capsule 3 insulin lispro (HUMALOG KWIKPEN INSULIN) 100 unit/mL 7 units sq TID, and sliding scale. Max of 40 units a day (Patient taking differently: 10 units sq TID, and sliding scale. ) 5 Pen 5 flash glucose sensor (FREESTYLE KRISTA 14 DAY SENSOR) kit Use four times a day and as needed for blood sugar monitoring 2 Kit 11 ondansetron orally disintegrating (ZOFRAN ODT) 4 mg disintegrating tablet Take 1 tablet by mouth every 4 hours as needed. 8 tablet 0 insulin glargine (LANTUS SOLOSTAR, BASAGLAR KWIKPEN) 100 unit/mL (3 mL) Inject 22 Units subcutaneously daily at bedtime. 5 Pen 11 blood sugar diagnostic (BLOOD GLUCOSE TEST) test strip Test blood sugar(s) 4 times daily. Dx: OtherDM Code E13.65 Insulin: Yes 50 Strip 11 Lancets lancets Test blood sugar(s) 4 times daily. Dx: Other DM Code E13.65 Insulin: Yes 100 Each 11 blood sugar diagnostic (FREESTYLE LITE STRIPS) test strip Test blood sugar(s) 4 times daily. Insulin: Yes (Patient not taking: Reported on 06/30/2021 ) 400 Strip 3 alcohol swabs (ALCOHOL PADS) Use to prior to checking blood sugar 4 times daily. 400 Each 3 polyethylene glycol 3350 (MIRALAX) 17 gram/dose powder For colonoscopy prep 235 g 0 bisacodyl EC (DULCOLAX, BISACODYL,) 5 mg EC tablet Take 1 tablet by mouth as directed. Take two (2)each time, as explained on the instruction sheet provided. 4 tablet 0 magnesium oxide (MAG-OX) 400 mg (241.3 mg magnesium) tablet Take 1 tablet by mouth twice daily. 60 tablet 2 flash glucose scanning reader ([employer] DevicesSTYLE KRISTA 14 DAY READER) 1 Each four times daily. 1 Each 0 traMADol (ULTRAM) 50 mg tablet Take 50 mg by mouth every 8 hours as needed. meclizine (ANTIVERT) 25 mg tab Take 1 tablet by mouth every 6 hours as needed (dizziness). 30 tablet 1 midodrine (PROAMATINE) 2.5 mg tablet Take 1 tablet by mouth three times daily. Hold for systolic BPabove 180 90 tablet 2 Miscellaneous Medical Supply (BLOOD PRESSURE CUFF) [facility] Use as directed. 1 Each 0 Blood Pressure Monitor kit Use as directed 1 Kit 0 pregabalin (LYRICA) 50 mg capsule Take 50 mg by mouth three times daily. COMPOUNDED PRESCRIPTION Quad cane 1 Each 0 ibuprofen (MOTRIN) 600 mg tablet Take 1 tablet by mouth three times daily as needed. 90 tablet 2 blood sugar diagnostic (BLOOD GLUCOSE TEST) test strip Test blood sugar(s) 4 times daily. Dx: Type 2 DM - Uncontrolled E11.65 Insulin: Yes 150 Strip 3 aspirin 81 mg chewable tablet Take 1 tablet by mouth once daily. 30 tablet Lancets lancets Test blood sugar(s) 4 times daily. Dx: Type 2 DM - Uncontrolled E11.65 Insulin: Lup512 Each 3 No current facility-administered medications for this visit. HEPATITIS C SCREENING Never done HIV SCREENING Never done BP CONTROLLED (<130/80) Never done PNEUMOCOCCAL(2 - PCV) due on 01/12/2010 SHINGRIX VACCINE(1 of 2) Never done PAP TESTING due on 07/29/2017 HPV TESTING due on 07/29/2017 DTAP,TDAP,TD(4 - Td or Tdap) due on 01/12/2019 COVID-19 VACCINE(3 - Booster for Moderna series) due on 11/02/2020 DEPRESSION ASSESSMENT Never done MAMMOGRAM due on 07/06/2021 HBA1C due on 2021 INFLUENZA(1) due on 11/30/2021 EXAM: BP 174/90 Pulse 89 Resp 16 Wt 82.6 kg (182 lb) LMP 09/30/2008 SpO2 98% BMI 30.29 kg/m Recheck 154/88 Pleasant overweight adult woman in no acute distress though appears weak, tired. Alert and orientedall spheres. Depressed affect and normal cognition. Speech normal though also slow. No deficits to learning or comprehension. Skin warm, dry, pink to lips and nailbeds. Normal turgor. Respirations regular and unlabored. HEENT: NCAT. No scleral icterus or conjunctival injection. TM's clear. Nose and oropharynx free from injection or lesion. Oral membranes moist and pink. No cervical lymph nodes. Thyroid non-tender, no masses, or enlargement. Carotids pulses 2+/4+ without bruits. Neck veins flat sitting upright Chest is normal shape. Lungs are clear to all olivo with good air exchange through out. HRRR without murmur or gallop. No lifts, heaves, or rubs. Abdomen: examined seated: active bowel sounds throughout, soft, nontender,. No CVAT. Extrem: no clubbing or cyanosis. Edema: doughy swelling, non-pitting. Did not remove bilateral dressings applied by nursing prior to visit. ASSESSMENT/PLAN: 1. Iron deficiency anemia, unspecified iron deficiency anemia type - ICD9: 280.9, ICD10: D50.9 (primary diagnosis) Push fluids. Notify if any issues with lightheadedness, SOB, chest pain/ cardiac sx - FECAL OCCULT BLOOD TEST - CBC - COMP METABOLIC PANEL 2. Hospital discharge follow-up - ICD9: V67.59, ICD10: Z09 Medication reconciliation completed. Has scheduled follow up with Dr. Castrejon. Receive PT. OT at home as well as home [place] 3. 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 Sees endo Dr. Cortes, no appt currently scheduled - CBC - COMP METABOLIC PANEL 4. ALMA (acute kidney injury) (HCC) - ICD9: 584.9, ICD10: N17.9 resolved - CBC - COMP METABOLIC PANEL 5. Need for COVID-19 vaccine - ICD9: V04.89, ICD10: Z23 - [employer] COVID-19 BIVALENT BOOSTER VACCINE, AGE 12+ YR 6. Hypertension - ICD9: 401.1, ICD10: I10 - poor control - Continue current medication(s) - Recommended regular aerobic exercise. - Recommend home blood pressure monitoring, to bring results in on next visit - Follow up in 1 month for BP recheck. - Goal of BP <130/80 7. Hyperlipidemia, unspecified hyperlipidemia type - ICD9: 272.4, ICD10: E78.5 - good control - Encouraged following a low fat, low cholesterol diet. 8. Stage 3b chronic kidney disease (HCC) - ICD9: 585.3, ICD10: N18.32 - eGFR: Stable - Counseled on avoiding regular use of NSAIDs, adequate hydration, potential risk of IV dye - Recommend maintaining blood pressure under 130/80 - Counseled on renal diet (low sodium/low potassium/low phosphorus) - Labs ordered: Renal function panel 9. Proteinuria, unspecified type - ICD9: 791.0, ICD10: R80.9 Monitor at next visit Following with wound center for heel wounds. F/u prn and in 6 weeks. Usha Pastrana PA-C documented in this encounterMer[facility]10-17-2022 Miscellaneous Notes* Telephone Encounter - Nica Crockett Ma - 01/15/2022 2:20 PM EDT Pt has appt tomorrow * Telephone Encounter - Usha Pastrana PA-C - 01/15/2022 12:50 PM EDT POC noted and agree. Recheck BP NV or in offiice ThanksBenigno PA-C * Telephone Encounter - Jannette Fernandez RN - 01/15/2022 12:16 PM EDT [place] OT from [facility] calling to report plan of care for patient and OT will visit patient 2 times a week for 4 weeks. OT will work with patient on strengthening and IDLs. Also [place] reports that patient's blood pressure has been elevated. Blood pressure was 179/107 HR 80. Patient was asymptomatic. Please review and Advise, Jannette Fernandez, RN documented in this encounterMercy Health [facility]10-17-2022 Miscellaneous Notes* Telephone Encounter - Pau Emanuel RN - 01/15/2022 1:57 PM EDT Carla a nurse with [facility] calling to state patient's blood pressure was elevated at today's visit, as reported to Benigno Pastrana earlier today by OT. Nurse reports BP reading for patient that she obtained was 190/100. Patient remains asymptomatic. Carla given Benigno Pastrana's instruction from telephone encounter earlier today and will inform patientto call and schedule appt for BP check. Pau Emanuel RN documented in this encounterMercy [facility]10-10-2022 Miscellaneous Notes* Telephone Encounter - Dennys Baez MD - 01/08/2022 4:17 PM EDT yes * Telephone Encounter - Janessa Perez LPN - 01/08/2022 3:33 PM EDT Genoveva with [facility] called and states pt is in [facility] and due to be released tomorrow or soon after and HH is being referred to for PT and OT. DX. blood sugar off, hyperosmolality, UTI, hyponatremia.Genoveva asking if you will follow and sign for Home Health. Please advise Laura at [phone]. Janessa Perez LPN documented in this encounterMercy Health [facility]08-11-2022 Miscellaneous Notes* Telephone Encounter - Brittney Almaguer LPN - 11/09/2021 11:27 AM EDT Patient calling said she is out of Clonidine rx, she was not aware Benigno Pastrana is out of office on Saturday, aware note is being sent back with more information. * Telephone Encounter - Jannette Fernandez RN - 11/08/2021 10:25 AM EDT Patient has been identified by name and date of : Yes Pharmacy phones for refill(s): Requested Prescriptions Pending Prescriptions Disp Refills cloNIDine HCl (CATAPRES) 0.3 mg tablet 90 tablet 5 Sig: Take 1 tablet by mouth three times daily. sertraline (ZOLOFT) 50 mg tablet 30 tablet 5 Sig: Take 1 tablet by mouth once daily. atorvastatin (LIPITOR) 40 mg tablet 30 tablet 11 Sig: Take 1 tablet by mouth daily at bedtime. insulin needles, DISPOSABLE, (PEN NEEDLE) 31 gauge x 5/16 200 Each 3 Sig: Use one needle per dose. Twice per day. Date of last office visit in primary care: 06/19/2021 Last 2 Encounter Wt Readings: Date: Wt: 06/30/2021 84.4 kg (186 lb) 06/19/2021 86.1 kg (189 lb 12.8 oz) Previous labs/tests for medication: Blood Pressure: BUN (mg/dL) Date Value 06/19/2021 24 02/25/2021 11 Sodium (mmol/L) Date Value 06/19/2021 138 02/25/2021 142 Last 1 Encounter BP Readings: Date: BP: 06/30/2021 173/78 Liver Function: ALT (U/L) Date Value 06/19/2021 28 02/25/2021 8 AST (U/L) Date Value 06/19/2021 27 02/25/2021 17 Please advise. Thank you. Jnanette Fernandez RN * Telephone Encounter - Kristen Cartwright LPN - 11/08/2021 8:32 AM EDT Last office visit 06/19/2021 Next appointment scheduled 12/25/2021 Last labs 06/19/2021 * Telephone Encounter - Vicky Herrmann - 11/08/2021 8:09 AM EDT Patient has been identified by name and date of : Yes Requested Prescriptions Pending Prescriptions Disp Refills cloNIDine HCl (CATAPRES) 0.3 mg tablet 90 tablet 5 Sig: Take 1 tablet by mouth three times daily. pantoprazole DR (PROTONIX) 40 mg tablet 30 tablet 11 Sig: Take 1 tablet by mouth daily before breakfast. Take on empty stomach, 1/2 hr before meal. RX INSTRUCTIONS: Patient aware RX will be sent to pharmacy. No need to notify patient. Vicky Herrmann documented in this encounterMercy [facility]07-08-2022 Miscellaneous Notes* Telephone Encounter - Leda Shah LPN - 10/06/2021 9:22 AM EDT Patient has been identified by name and date of : Yes Patient phones for refill(s): Pending Prescriptions Disp Refills PANTOPRAZOLE 40 MG TABLET,DELAYED RELEASE 30 tablet 11 Sig: Take 1 tablet by mouth daily before breakfast. Take on empty stomach, 1/2 hr before meal. TUAN: No Date of last office visit in primary care: 06/19/21 Last 2 Encounter Wt Readings: Date: Wt: 06/30/2021 84.4 kg (186 lb) 06/19/2021 86.1 kg (189 lb 12.8 oz) Previous labs/tests for medication: Not applicable Please advise. Thank you. Leda Shah LPN documented in this encounterMercy [facility]05-24-2022 History of Present illness Narrative* [place] Vanessa Melgoza - 08/22/2021 3:17 PM EDT POPULATION HEALTH NAVIGATION OUTREACH Action/FYI Spoke with pt and scheduled mammogram. Declined AD. 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 / Plan: NA [employer]ARG[employer] HMO / Product Type: HMO / Care Gap Reviewed:: Breast Cancer screening Reminder: Reminder note to check Health Maintenance for items below Health Maintenance items due: PNEUMOCOCCAL(1 - PCV) Never done HEPATITIS C SCREENING Never done HIV SCREENING Never done BP CONTROLLED (<130/80) Never done HEPATITIS B(1 of 3 - Risk 3-dose series) Never done SHINGRIX VACCINE(1 of 2) Never done PAP TESTING due on 07/29/2017 HPV TESTING due on 07/29/2017 DTAP,TDAP,TD(4 - Td or Tdap) due on 01/12/2019 DEPRESSION SCREENING due on 10/10/2019 COVID-19 VACCINE(3 - Moderna risk series) due on 10/05/2020 MAMMOGRAM due on 07/06/2021 Message Sent to Practice: No Navigation Signature: Merecd Mendez Ma August 22, 2021 3:18 PM documented in this encounterMercy [facility]05-03-2022 Miscellaneous Notes* Telephone Encounter - Katerine Vaughan LPN - 08/01/2021 2:52 PM EDT Prescription faxed to [facility] [phone] * Telephone Encounter - Dennys Baez MD - 08/01/2021 2:39 PM EDT Printed. * Telephone Encounter - Ysabel Mchugh LPN - 08/01/2021 11:29 AM EDT [employer] [facility] [employer] sends fax for prescription request for grabuzz bar. Routed to PCP to review and sign. Dorene Mchugh LPN documented in this encounterMercy [facility]04-01-2022 History of Present illness Narrative* Julio C Reynoso RN - 06/30/2021 2:51 PM EDT DIABETES SELF-MANAGEMENT EDUCATION AND SUPPORT Location: [place] Type of visit: In person individual Types of DSMES: Initial/Comprehensive (add to or update ADA spreadsheet) PATIENT'S MAIN CONCERN TODAY: Learn Support person present for education today: none Cognitive ability: Alert and oriented Motivation to learn: Interested Learning barriers identified by educator: slow to respond at times, reports she had a concussion [id number], use more response time to facilitate processing Method of instruction: written, verbal and demonstration INTERVENTIONS/TOPICS COVERED: -Diabetes Basics: role of insulin in the body, role of glucose in the body, difference between Type1 and Type 2, insulin resistance, relationship of glucose and insulin in the body and hepatic glucose release -Monitoring: BG targets, rationale for HGM, A1c meaning and target <7%, using a home glucose monitor and CGM type: Krista -Healthy Eating: foods with carbs and reading food labels -Medications: medication safety/timing, medication side effects, site selection/rotation, pen injection instruction, sharps disposal, basal insulin, how to use a correction/sliding scale, prandial insulin and injectable insulin discussed: lispro (Humalog) and glargine (Lantus) -Physical Activity: benefits of exercise and impact of exercise on BG -Problem Solving: hypoglycemia s/sx/tx, hyperglycemia s/sx/tx, sick day rules and pattern management -Reducing Risks: importance of annual eye exams, LT complications and importance of BG control to reduce risks -Healthy Coping: impact of stress on BG DIABETES ASSESSMENT: Referring Physician: Dennys Baez Previous Diabetes Education? Asked/not answered What are you hoping to gain from this visit? asked/not answered In your words, what is diabetes? Sugars are high from not making insulin What concerns you about having diabetes? asked/not answered Diabetes History: Type of Diabetes: Type 1 What year were you diagnosed? 2014 Does anyone in your family have diabetes? yes grandmother (paternal) How do you learn best? 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 never How often does someone help you read your pill bottles? rarely How often does someone have to help you take care of your diabetes? rarely Major stressors:asked/not answered How do you manage stress? asked/not answered Do any of the following things get in the way of managing your diabetes? Other health problems Health History: Most recent eye exam: May Most recent dental exam: cannot recall Most recent foot exam:May How often do you inspect your feet at home? Sometimes Do you use tobacco? No Do you use alcohol? No In the past 12 months have you had any: Hospital Admissions: Yes, Number of Times? 1 ER Visits: Yes, Number of Times? 1 Primary Care Visits: Yes, Number of Times? What are your general feelings about you overall health? Fair Medical Issues/Complications: PAST MEDICAL HISTORY Diagnosis Date Concussion 09/2008 - from fall at work Diabetes (HCC) Gastroparesis due to DM (HCC) 09/17/2012 Genital herpes 10/28/2009 Migraine without aura 08/19/2008 Orthostasis Pelvic pain in female 07/29/2012 PMH - PAST MEDICAL HISTORY OF TMJ Vertigo of central origin 04/24/2012 Most recent A1C Lab Results Component Value Date HBA1C 9.6 06/19/2021 HBA1C 9.5 12/27/2020 HBA1C 9.9 05/05/2020 HBA1C 12.1 12/02/2019 Physical Activity: Do you do a regular exercise? No Sick Days: How do you manage your diabetes when you are sick? Test blood sugar more often Sleep: Do you get at least 7 hrs of sleep most nights? yes Current Outpatient Medications Medication Sig dilTIAZem CD (CARDIZEM CD, CARTIA XT) 180 mg 24 hr capsule Take 1 capsule by mouth once daily. insulin lispro (HUMALOG KWIKPEN INSULIN) 100 unit/mL 7 units sq TID, and sliding scale. Max of 40 units a day (Patient taking differently: 10 units sq TID, and sliding scale. ) sertraline (ZOLOFT) 50 mg tablet Take 1 tablet by mouth once daily. flash glucose sensor (FREESTYLE KRISTA 14 DAY SENSOR) kit Use four times a day and as needed for blood sugar monitoring ondansetron orally disintegrating (ZOFRAN ODT) 4 mg disintegrating tablet Take 1 tablet by mouth every 4 hours as needed. cloNIDine HCl (CATAPRES) 0.3 mg tablet Take 1 tablet by mouth three times daily. atorvastatin (LIPITOR) 40 mg tablet Take 1 tablet by mouth daily at bedtime. insulin needles, DISPOSABLE, (PEN NEEDLE) 31 gauge x 5/16 Use one needle per dose. Twice per day. pantoprazole DR (PROTONIX) 40 mg tablet Take 1 tablet by mouth daily before breakfast. Take on empty stomach, 1/2 hr before meal. insulin glargine (LANTUS SOLOSTAR, BASAGLAR KWIKPEN) 100 unit/mL (3 mL) Inject 22 Units subcutaneously daily at bedtime. blood sugar diagnostic (BLOOD GLUCOSE TEST) test strip Test blood sugar(s) 4 times daily. Dx: OtherDM Code E13.65 Insulin: Yes Lancets lancets Test blood sugar(s) 4 times daily. Dx: Other DM Code E13.65 Insulin: Yes blood sugar diagnostic (FREESTYLE LITE STRIPS) test strip Test blood sugar(s) 4 times daily. Insulin: Yes (Patient not taking: Reported on 06/30/2021 ) alcohol swabs (ALCOHOL PADS) Use to prior to checking blood sugar 4 times daily. polyethylene glycol 3350 (MIRALAX) 17 gram/dose powder For colonoscopy prep bisacodyl EC (DULCOLAX, BISACODYL,) 5 mg EC tablet Take 1 tablet by mouth as directed. Take two (2)each time, as explained on the instruction sheet provided. magnesium oxide (MAG-OX) 400 mg (241.3 mg magnesium) tablet Take 1 tablet by mouth twice daily. flash glucose scanning reader (FREESTYLE KRISTA 14 DAY READER) 1 Each four times daily. traMADol (ULTRAM) 50 mg tablet Take 50 mg by mouth every 8 hours as needed. meclizine (ANTIVERT) 25 mg tab Take 1 tablet by mouth every 6 hours as needed (dizziness). midodrine (PROAMATINE) 2.5 mg tablet Take 1 tablet by mouth three times daily. Hold for systolic BPabove 180 Miscellaneous Medical Supply (BLOOD PRESSURE CUFF) [facility] Use as directed. Blood Pressure Monitor kit Use as directed pregabalin (LYRICA) 50 mg capsule Take 50 mg by mouth three times daily. COMPOUNDED PRESCRIPTION Quad cane ibuprofen (MOTRIN) 600 mg tablet Take 1 tablet by mouth three times daily as needed. blood sugar diagnostic (BLOOD GLUCOSE TEST) test strip Test blood sugar(s) 4 times daily. Dx: Type 2 DM - Uncontrolled E11.65 Insulin: Yes aspirin 81 mg chewable tablet Take 1 tablet by mouth once daily. Lancets lancets Test blood sugar(s) 4 times daily. Dx: Type 2 DM - Uncontrolled E11.65 Insulin: Yes No current facility-administered medications for this visit. Injections Technique: Do you take insulin or a medication you inject for your diabetes? Yes;then if so answer the following questions: How do you inject your medicine Pen Where are your injections done? Thigh Who preparesyour syringes, pen, or pump infusion set? Self and Other BF Who gives you injections or changes your pump sites? Me and Other Where do you throw away your needles? Sharps container Blood Sugar Monitoring: Do you have a blood sugar monitor? Yes; What kind of meter is it? Libre2, One Touch Meter - ultra2 How often do you check? 3-4x When you check? Before all/most meals and Other Krista. Do you log your blood sugars? No. Where do you throw away your lancets? Sharps container Management of Low Blood Sugar: What has been your lowest blood sugar in the last month? 58 mg/dL What are your symptoms of lows?Shaky How do you treat lows? Eat something or drink orange juice Do you drive? no Management of High Blood Sugar: What has been you highest blood sugar in the last month? 200+ What are your symptoms of highs? Thirsty and Tired How do you treat your highs? Meal Planning: Are you currently following any meal plan? None Who does the cooking in your house? BF Who does the grocery shopping? BF How often do you eat out? 0-1x/week How many meals do you eat per day? Three Which meals do you tend to skip? None Beverages: water and unsweetened tea Reproductive Status (Females): Have you reached menopause? Yes EDUCATION HANDOUTS: Healthy You: Survival Skills and Healthy You: Planning Healthy Meals LEARNING RESPONSE: Verbalizes understanding of topics covered. PATIENT SELECTED THE FOLLOWING GOALS: -Medication goal: take the right dose of my medications 3: I have a plan to start DSMS PLAN: -Not addressed at this visit POSSIBLE FUTURE TOPICS: 1. DIABETES EDUCATION PLAN: Individual follow-up Time Spent (Minutes): 45 This visit note will be communicated to the healthcare provider via access to shared medical record. SIGNATURE: Julio C Reynoso RN PATIENT NAME: Layne Sprague DATE: June 30, 2021 TIME: 2:51 PM PAGER: documented in this encounterMercy Health [facility]04-01-2022 Instructions* Patient Instructions* Anthony Cortes MD - 06/30/2021 2:42 PM EDT Insulin Breakfast Lunch Dinner Bedtime Lantus (units) 22 units Humalog (units) 10 units 10 units 10 units Blood Sugar Extra units of Humalog insulin Extra units of Humalog insulin Extra units of Humalog insulin Extra units of Humalog insulin Less than 80 -1 -1 -1 Eat 15 gram carbs 80-140 0 0 0 0 141-180 1 1 1 0 181-220 2 2 2 1 221-260 3 3 3 2 261-300 4 4 4 3 300-340 5 5 5 4 340-380 6 6 6 5 Over 380 7 7 7 6 - If you eat a meal, take Humalog 10 units PLUS extra Humalog point based on the scale above - If you skip a meal, check your blood sugar at that time, and take Humalog based on the scale above (but do NOT take the fixed 10 units) If your overnight or morning blood sugar is ever lower than 100, please decrease your lantus insulin by 1 unit permanently, and repeat as needed If your morning blood sugar is higher than 140 for 3 days in a row, please increase your lantus insulin by 1 unit permanently, and repeat as needed - I recommend seeing a design technology professor here to discuss the blood pressure management. Please call [phone] to schedule with them - Continue to follow up with the foot doctor - See my colleague diabetes nurse in 6 weeks and with me in 3 months documented in this encounterMercy Health [facility]04-01-2022 History of Present illness Narrative* Anthony Cortes MD - 06/30/2021 2:00 PM EDT Images from the original note were not included. ENDOCRINOLOGY CLINIC NOTE Ms. Sprague is a 60 year old female with T1DM, HTN, migraine, gastroparesis was referred by Dr. Baez for management of diabetes HPI She was diagnosed with diabetes 8 years ago. And ELLIE antibody was positive. A1c: 05/05/2020 16:29 12/27/2020 10:41 06/19/2021 15:21 Hemoglobin A1C 9.9 (H) 9.5 (H) 9.6 (H) Current regimen: Lantus 22 units at bedtime Humalog 10 units. She injects 15 min before eating. She states that she would give herself 10 unitsof Humalog even if she does not eat Home glucose monitoring: She uses [employer] Info CGM The patient's continuous glucose monitoring device was downloaded, interpreted by myself and recommendations were discussed with the patient. The following data was obtained: Average glucose: 239 mg/dl glucose variability 31.2% Estimated HbA1c: 9% Serious hypoglycemia (<55 mg/dl): 0% Hypoglycemia (<70 mg/dl): 1% Values in target (70-180 mg/dl): 22% Hyperglycemia (>180 mg/dl): 2948% Serious hyperglycemia (>250 mg/dl): % CGM active 100% of the time Time evaluated: 14 days A total of 10 minutes were spent to download the device, discuss the findings and provide recommendations to the patient. Diet: She eats 203 meals a day Physical activity: She uses a walker due to balance issues Complications: Retinopathy: Last eye exam was on 06/29/2021 and showed PDR with macular edema Nephropathy: GFR 51, urine ACR 925 in 05/2021 not on ACEi/ARB Neuropathy: mild pain in her feet. She has left heel wound and she sees podiatry for that. CVS: lipid profile 05/2021: Cholesterol 120, LDL 46, HDL 60, TG 72 on atorvastatin 40 mg and aspirinBP: 173/78 she is on an unusual combination of clonidine, diltiazem and midodrine. She stated that she sees cardiology. She takes the midodrine of the blood pressure is low. PAST MEDICAL HISTORY Diagnosis Date Concussion 09/2008 - from fall at work Diabetes (HCC) Gastroparesis due to DM (HCC) 09/17/2012 Genital herpes 10/28/2009 Migraine without aura 08/19/2008 Orthostasis Pelvic pain in female 07/29/2012 PMH - PAST MEDICAL HISTORY OF TMJ Vertigo of central origin 04/24/2012 PAST SURGICAL HISTORY Procedure Laterality Date COLONOSCOPY FLX DX W/COLLJ SPEC WHEN PFRMD 12/24/2012 Colonoscopy ESOPHAGOGASTRODUODENOSCOPY TRANSORAL DIAGNOSTIC 01/31/2012 EGD LAPS SURG CHOLECYSTECTOMY W/CHOLANGIOGRAPHY 02/01/2012 Normal IOC PAST SURGICAL HISTORY OF TMJ replacements x 2 PAST SURGICAL HISTORY OF Jaw surgery PAST SURGICAL HISTORY OF PAST SURGICAL HISTORY OF left hip pinned FAMILY HISTORY Problem Relation Age of Onset Hypertension Mother Lipids Mother Cancer Father Lymphoma, Leukemia Emphysema Father Cataract Father Diabetes Paternal Grandmother Breast Cancer Paternal Aunt Social History Tobacco Use Smoking status: Never Smoker Smokeless tobacco: Never Used Vaping Use Vaping Use: Never used Substance Use Topics Alcohol use: No Drug use: No (Not in a hospital admission) Allergies As of Date: 06/30/2021 Allergen Noted Reaction METFORMIN 10/09/2018 GI Upset Fully Assessed 06/29/2021 Current Outpatient Medications Medication Sig Dispense Refill dilTIAZem CD (CARDIZEM CD, CARTIA XT) 180 mg 24 hr capsule Take 1 capsule by mouth once daily. 90 capsule 3 insulin lispro (HUMALOG KWIKPEN INSULIN) 100 unit/mL 7 units sq TID, and sliding scale. Max of 40 units a day 5 Pen 5 sertraline (ZOLOFT) 50 mg tablet Take 1 tablet by mouth once daily. 30 tablet 5 flash glucose sensor (FREESTYLE KRISTA 14 DAY SENSOR) kit Use four times a day and as needed for blood sugar monitoring 2 Kit 11 ondansetron orally disintegrating (ZOFRAN ODT) 4 mg disintegrating tablet Take 1 tablet by mouth every 4 hours as needed. 8 tablet 0 cloNIDine HCl (CATAPRES) 0.3 mg tablet Take 1 tablet by mouth three times daily. 90 tablet 5 atorvastatin (LIPITOR) 40 mg tablet Take 1 tablet by mouth daily at bedtime. 30 tablet 11 insulin needles, DISPOSABLE, (PEN NEEDLE) 31 gauge x 5/16 Use one needle per dose. Twice per day. [address] (PROTONIX) 40 mg tablet Take 1 tablet by mouth daily before breakfast. Take on empty stomach, 1/2 hr before meal. 30 tablet 11 insulin glargine (LANTUS SOLOSTAR, BASAGLAR KWIKPEN) 100 unit/mL (3 mL) Inject 22 Units subcutaneously daily at bedtime. 5 Pen 11 blood sugar diagnostic (BLOOD GLUCOSE TEST) test strip Test blood sugar(s) 4 times daily. Dx: OtherDM Code E13.65 Insulin: Yes 50 Strip 11 Lancets lancets Test blood sugar(s) 4 times daily. Dx: Other DM Code E13.65 Insulin: Yes 100 Each 11 blood sugar diagnostic (FREESTYLE LITE STRIPS) test strip Test blood sugar(s) 4 times daily. Insulin: Yes 400 Strip 3 alcohol swabs (ALCOHOL PADS) Use to prior to checking blood sugar 4 times daily. 400 Each 3 polyethylene glycol 3350 (MIRALAX) 17 gram/dose powder For colonoscopy prep 235 g 0 bisacodyl EC (DULCOLAX, BISACODYL,) 5 mg EC tablet Take 1 tablet by mouth as directed. Take two (2)each time, as explained on the instruction sheet provided. 4 tablet 0 magnesium oxide (MAG-OX) 400 mg (241.3 mg magnesium) tablet Take 1 tablet by mouth twice daily. 60 tablet 2 flash glucose scanning reader (FREESTYLE KRISTA 14 DAY READER) 1 Each four times daily. 1 Each 0 traMADol (ULTRAM) 50 mg tablet Take 50 mg by mouth every 8 hours as needed. meclizine (ANTIVERT) 25 mg tab Take 1 tablet by mouth every 6 hours as needed (dizziness). 30 tablet 1 midodrine (PROAMATINE) 2.5 mg tablet Take 1 tablet by mouth three times daily. Hold for systolic BPabove 180 90 tablet 2 Miscellaneous Medical Supply (BLOOD PRESSURE CUFF) [facility] Use as directed. 1 Each 0 Blood Pressure Monitor kit Use as directed 1 Kit 0 pregabalin (LYRICA) 50 mg capsule Take 50 mg by mouth three times daily. COMPOUNDED PRESCRIPTION Quad cane 1 Each 0 ibuprofen (MOTRIN) 600 mg tablet Take 1 tablet by mouth three times daily as needed. 90 tablet 2 blood sugar diagnostic (BLOOD GLUCOSE TEST) test strip Test blood sugar(s) 4 times daily. Dx: Type 2 DM - Uncontrolled E11.65 Insulin: Yes 150 Strip 3 aspirin 81 mg chewable tablet Take 1 tablet by mouth once daily. 30 tablet Lancets lancets Test blood sugar(s) 4 times daily. Dx: Type 2 DM - Uncontrolled E11.65 Insulin: [id number] Each 3 No current facility-administered medications for this visit. COMPLETE REVIEW OF SYSTEMS: 10 point review of systems was negative other than what is mentioned in the H&P PHYSICAL EXAM: 06/30/21 1408 BP: 173/78 Pulse: 78 SpO2: 99% Weight: 84.4 kg (186 lb) Height: 165.1 cm (5' 5 ) General: NAD, alert but slow to respond at times HEENT: EOMI, no proptosis/stare. Neck: supple with full ROM. No thyromegaly or palpable nodules Cardiovascular: RRR, +S1 and S2, no MRG appreciated Lungs: Clear to auscultation bilaterally Abdomen: soft, non-tender, non-distended, +BS Extremities: Compression stockings were in place Neuro: No tremor of outstretched hands noted. Deep tendon reflexes are normal with a normal relaxation phase. Psych: Normal affect Foot exam 06/30/2021, this was partially done as the patient has compression stocking. There was dried blood on the left heel. Monofilament test was normal and vibration sensation on the forefoot was normal. Labs: 06/19/2021 15:21 Sodium 138 Potassium 5.0 Chloride 101 CO2 26 BUN 24 (H) Creatinine 1.24 (H) Glucose 237 (H) Protein, Total 6.7 Calcium 9.5 Albumin 3.6 (L) Bilirubin, Total 0.4 Alkaline Phosphatase 205 (H) ALT 28 AST 27 Anion Gap 11 eGFR 51 (L) 06/19/2021 15:21 Total Cholesterol, Nonfasting 120 Triglycerides, Nonfasting 72 HDL Cholesterol, Nonfasting 60 LDL Cholesterol, Nonfasting 46 06/19/2021 15:21 Albumin/Creat Ratio 925 (H) Assessment and Recommendations: Ms. Sprague is a pleasant 60-year-old woman presented to establish care for T1DM. Her diabetes is uncontrolled as evidenced by the A1c level and the reviewed glucose data on her CGM. This is most likelydue to suboptimal regimen, and inconsistent dietary habits. Our goal is to achieve an A1c close to 7% to reduce the risks of diabetes related complications. Lowering the risk of hypoglycemia is also a priority in her case. She tends to have low blood sugar in the afternoon. She stated that she would still take the Humalog 10 units even if she skips a meal, and this is possibly the main reason why she is having the hyperglycemia at that time. She is mostly hyperglycemic, but there is no clear pattern. We will continuewith the current regimen, but we discussed using a low-dose sliding scale in addition to that. We discussed that if she eats a meal, she would take Humalog 10 units plus additional units based on herblood sugar. If she skips a meal, then she would take Humalog based on the sliding scale only without using the 10 units. Detailed instructions were reviewed and provided in the after visit summary. We also discussed how to adjust the Lantus dose based on her morning blood sugars. She will meet with my colleague PEPITO today. She will follow up with my colleague nurse in 6 weeks and with me in 3 months. Ms. Sprague has a left heel wound and she has been seeing podiatry. I asked her to continue to follow-up with them. Her blood pressure is elevated today. She takes an unusual regimen of clonidine, diltiazem and midodrine when the blood pressure is low. I discussed with Ms. Castro this regimen is atypical and I recommend that she sees cardiology at [facility] for further discussion and adjustments. We will discuss switching her from freestyle krista to freestyle krista 2 which would provide additional safety feature by alerting her for hypoglycemia and significant hyperglycemia Dr. Baez is thanked for involving me in the care of this patient My final recommendations will be communicated back to the requesting physician by way of shared Medical record or letter to requesting physician via US mail. I spent 60 minutes in the visit, with more than 50% of the total [id number] time of the visit in counseling / coordination of care. Anthony Cortes MD [facility] Miscellaneous Notes* Telephone Encounter - Lalita Castillo - 06/30/2021 8:48 AM EDT Contacted patient. She has an appointment today at [facility]. Has a few questions then she will be asking [facility] to schedule these tests. Lalita Castillo PSS * Telephone Encounter - Charleen Turpin - 06/22/2021 11:15 AM EDTSummary: Appointment Called PT to schedule, LVM for PT to call back and schedule. * Telephone Encounter - Nica Crockett Ma - 06/20/2021 5:29 PM EDT Patient was made aware of the results. Patient verbalizes understanding. Please help pt set up bone density and US Nica Crockett Ma * Telephone Encounter - Dennys Baez MD - 06/20/2021 12:50 PM EDT 1. Sugars continue to be elevated. See endo as we discussed. 2. Still anemic. See Dr. Krueger as we discussed. 3. Her alk phos is still up. We had ordered a bone scan and us in the fall. Does not appear was done. Orders are still in, They need done. 4. Urine shows elevated protein probably from bp and sugars. Check 23 hour urine for protien. 5. Recheck labs in two to four weeks. 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 Patient has diabetes since the age of 53. Hypomagnesemia 10/30/2018 03/07/2021 Last Assessment & Plan: Assessment: Mg 1.6 PLAN: Continue MgOxide 400mg po BID Hypokalemia 10/28/2018 10/29/2018 Last Assessment & Plan: Assessment: K 3.5 Mg 1.5 Had po supplements in ED PLAN: KCl in IVFs Recheck K and Mg levels in AM Weight loss, unintentional 10/28/201810/31 Last Assessment & Plan: Assessment: Possibly related to uncontrolled DM PLAN: Treatment as above Should have routine health care surveillance - Mammogram; Colonoscopy (colon polyp 11/2012) Gastroparesis due to DM 09/17/2012 10/30/19 19 Pelvic pain in female 07/29/2012 10/29/2018 Abdominal pain, other specified site 07/29/2012 10/29/2018 Vertigo of central origin 04/24/20122018 Peripheral vertigo 04/24/2012 10/29/2018 Headache(784.0) 04/09/2012 10/29/2018 Biliary colic 01/24/2012 11/19/2012 Diabetes mellitus type II 10/15/20112018 Genital herpes 10/28/2009 10/29/2018 Burn erythema of hand 01/12/2009 10/29/2018 Migraine without aura 08/19/2008 10/31/2018 Last Assessment & Plan: Assessment: Patient reports migraine headaches at least twice a week Neurology at 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 Patient has diabetes since the age of 53. Hypomagnesemia 10/30/2018 03/07/2021 Last Assessment & Plan: Assessment: Mg 1.6 PLAN: Continue MgOxide 400mg po BID Hypokalemia 10/28/2018 10/29/2018 Last Assessment & Plan: Assessment: K 3.5 Mg 1.5 Had po supplements in ED PLAN: KCl in IVFs Recheck K and Mg levels in AM Weight loss, unintentional 10/28/201810/31 Last Assessment & Plan: Assessment: Possibly related to uncontrolled DM PLAN: Treatment as above Should have routine health care surveillance - Mammogram; Colonoscopy (colon polyp 11/2012) Gastroparesis due to DM 09/17/2012 10/30/19 19 Pelvic pain in female 07/29/2012 10/29/2018 Abdominal pain, other specified site 07/29/2012 10/29/2018 Vertigo of central origin 04/24/20122018 Peripheral vertigo 04/24/2012 10/29/2018 Headache(784.0) 04/09/2012 10/29/2018 Biliary colic 01/24/2012 11/19/2012 Diabetes mellitus type II 10/15/20112018 Genital herpes 10/28/2009 10/29/2018 Burn erythema of hand 01/12/2009 10/29/2018 Migraine without aura 08/19/2008 10/31/2018 Last Assessment & Plan: Assessment: Patient reports migraine headaches at least twice a week Neurology at 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 Patient has diabetes since the age of 53. Hypomagnesemia 10/30/2018 03/07/2021 Last Assessment & Plan: Assessment: Mg 1.6 PLAN: Continue MgOxide 400mg po BID Hypokalemia 10/28/2018 10/29/2018 Last Assessment & Plan: Assessment: K 3.5 Mg 1.5 Had po supplements in ED PLAN: KCl in IVFs Recheck K and Mg levels in AM Weight loss, unintentional 10/28/201810/31 Last Assessment & Plan: Assessment: Possibly related to uncontrolled DM PLAN: Treatment as above Should have routine health care surveillance - Mammogram; Colonoscopy (colon polyp 11/2012) Gastroparesis due to DM 09/17/2012 10/30/19 19 Pelvic pain in female 07/29/2012 10/29/2018 Abdominal pain, other specified site 07/29/2012 10/29/2018 Vertigo of central origin 04/24/20122018 Peripheral vertigo 04/24/2012 10/29/2018 Headache(784.0) 04/09/2012 10/29/2018 Biliary colic 01/24/2012 11/19/2012 Diabetes mellitus type II 10/15/20112018 Genital herpes 10/28/2009 10/29/2018 Burn erythema of hand 01/12/2009 10/29/2018 Migraine without aura 08/19/2008 10/31/2018 Last Assessment & Plan: Assessment: Patient reports migraine headaches at least twice a week Neurology at 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 Patient has diabetes since the age of 53. Hypomagnesemia 10/30/2018 03/07/2021 Last Assessment & Plan: Assessment: Mg 1.6 PLAN: Continue MgOxide 400mg po BID Hypokalemia 10/28/2018 10/29/2018 Last Assessment & Plan: Assessment: K 3.5 Mg 1.5 Had po supplements in ED PLAN: KCl in IVFs Recheck K and Mg levels in AM Weight loss, unintentional 10/28/201810/31 Last Assessment & Plan: Assessment: Possibly related to uncontrolled DM PLAN: Treatment as above Should have routine health care surveillance - Mammogram; Colonoscopy (colon polyp 11/2012) Gastroparesis due to DM 09/17/2012 10/30/19 19 Pelvic pain in female 07/29/2012 10/29/2018 Abdominal pain, other specified site 07/29/2012 10/29/2018 Vertigo of central origin 04/24/20122018 Peripheral vertigo 04/24/2012 10/29/2018 Headache(784.0) 04/09/2012 10/29/2018 Biliary colic 01/24/2012 11/19/2012 Diabetes mellitus type II 10/15/20112018 Genital herpes 10/28/2009 10/29/2018 Burn erythema of hand 01/12/2009 10/29/2018 Migraine without aura 08/19/2008 10/31/2018 Last Assessment & Plan: Assessment: Patient reports migraine headaches at least twice a week Neurology at 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 Patient has diabetes since the age of 53. Hypomagnesemia 10/30/2018 03/07/2021 Last Assessment & Plan: Assessment: Mg 1.6 PLAN: Continue MgOxide 400mg po BID Hypokalemia 10/28/2018 10/29/2018 Last Assessment & Plan: Assessment: K 3.5 Mg 1.5 Had po supplements in ED PLAN: KCl in IVFs Recheck K and Mg levels in AM Weight loss, unintentional 10/28/201810/31 Last Assessment & Plan: Assessment: Possibly related to uncontrolled DM PLAN: Treatment as above Should have routine health care surveillance - Mammogram; Colonoscopy (colon polyp 11/2012) Gastroparesis due to DM 09/17/2012 10/30/19 19 Pelvic pain in female 07/29/2012 10/29/2018 Abdominal pain, other specified site 07/29/2012 10/29/2018 Vertigo of central origin 04/24/20122018 Peripheral vertigo 04/24/2012 10/29/2018 Headache(784.0) 04/09/2012 10/29/2018 Biliary colic 01/24/2012 11/19/2012 Diabetes mellitus type II 10/15/20112018 Genital herpes 10/28/2009 10/29/2018 Burn erythema of hand 01/12/2009 10/29/2018 Migraine without aura 08/19/2008 10/31/2018 Last Assessment & Plan: Assessment: Patient reports migraine headaches at least twice a week Neurology at 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 Patient has diabetes since the age of 53. Hypomagnesemia 10/30/2018 03/07/2021 Last Assessment & Plan: Assessment: Mg 1.6 PLAN: Continue MgOxide 400mg po BID Hypokalemia 10/28/2018 10/29/2018 Last Assessment & Plan: Assessment: K 3.5 Mg 1.5 Had po supplements in ED PLAN: KCl in IVFs Recheck K and Mg levels in AM Weight loss, unintentional 10/28/201810/31 Last Assessment & Plan: Assessment: Possibly related to uncontrolled DM PLAN: Treatment as above Should have routine health care surveillance - Mammogram; Colonoscopy (colon polyp 11/2012) Gastroparesis due to DM 09/17/2012 10/30/19 19 Pelvic pain in female 07/29/2012 10/29/2018 Abdominal pain, other specified site 07/29/2012 10/29/2018 Vertigo of central origin 04/24/20122018 Peripheral vertigo 04/24/2012 10/29/2018 Headache(784.0) 04/09/2012 10/29/2018 Biliary colic 01/24/2012 11/19/2012 Diabetes mellitus type II 10/15/20112018 Genital herpes 10/28/2009 10/29/2018 Burn erythema of hand 01/12/2009 10/29/2018 Migraine without aura 08/19/2008 10/31/2018 Last Assessment & Plan: Assessment: Patient reports migraine headaches at least twice a week Neurology at 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 Patient has diabetes since the age of 53. Hypomagnesemia 10/30/2018 03/07/2021 Last Assessment & Plan: Assessment: Mg 1.6 PLAN: Continue MgOxide 400mg po BID Hypokalemia 10/28/2018 10/29/2018 Last Assessment & Plan: Assessment: K 3.5 Mg 1.5 Had po supplements in ED PLAN: KCl in IVFs Recheck K and Mg levels in AM Weight loss, unintentional 10/28/201810/31 Last Assessment & Plan: Assessment: Possibly related to uncontrolled DM PLAN: Treatment as above Should have routine health care surveillance - Mammogram; Colonoscopy (colon polyp 11/2012) Gastroparesis due to DM 09/17/2012 10/30/19 19 Pelvic pain in female 07/29/2012 10/29/2018 Abdominal pain, other specified site 07/29/2012 10/29/2018 Vertigo of central origin 04/24/20122018 Peripheral vertigo 04/24/2012 10/29/2018 Headache(784.0) 04/09/2012 10/29/2018 Biliary colic 01/24/2012 11/19/2012 Diabetes mellitus type II 10/15/20112018 Genital herpes 10/28/2009 10/29/2018 Burn erythema of hand 01/12/2009 10/29/2018 Migraine without aura 08/19/2008 10/31/2018 Last Assessment & Plan: Assessment: Patient reports migraine headaches at least twice a week Neurology at 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 Patient has diabetes since the age of 53. Hypomagnesemia 10/30/2018 03/07/2021 Last Assessment & Plan: Assessment: Mg 1.6 PLAN: Continue MgOxide 400mg po BID Hypokalemia 10/28/2018 10/29/2018 Last Assessment & Plan: Assessment: K 3.5 Mg 1.5 Had po supplements in ED PLAN: KCl in IVFs Recheck K and Mg levels in AM Weight loss, unintentional 10/28/201810/31 Last Assessment & Plan: Assessment: Possibly related to uncontrolled DM PLAN: Treatment as above Should have routine health care surveillance - Mammogram; Colonoscopy (colon polyp 11/2012) Gastroparesis due to DM 09/17/2012 10/30/19 19 Pelvic pain in female 07/29/2012 10/29/2018 Abdominal pain, other specified site 07/29/2012 10/29/2018 Vertigo of central origin 04/24/20122018 Peripheral vertigo 04/24/2012 10/29/2018 Headache(784.0) 04/09/2012 10/29/2018 Biliary colic 01/24/2012 11/19/2012 Diabetes mellitus type II 10/15/20112018 Genital herpes 10/28/2009 10/29/2018 Burn erythema of hand 01/12/2009 10/29/2018 Migraine without aura 08/19/2008 10/31/2018 Last Assessment & Plan: Assessment: Patient reports migraine headaches at least twice a week Neurology at 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 Patient has diabetes since the age of 53. Hypomagnesemia 10/30/2018 03/07/2021 Last Assessment & Plan: Assessment: Mg 1.6 PLAN: Continue MgOxide 400mg po BID Hypokalemia 10/28/2018 10/29/2018 Last Assessment & Plan: Assessment: K 3.5 Mg 1.5 Had po supplements in ED PLAN: KCl in IVFs Recheck K and Mg levels in AM Weight loss, unintentional 10/28/201810/31 Last Assessment & Plan: Assessment: Possibly related to uncontrolled DM PLAN: Treatment as above Should have routine health care surveillance - Mammogram; Colonoscopy (colon polyp 11/2012) Gastroparesis due to DM 09/17/2012 10/30/19 19 Pelvic pain in female 07/29/2012 10/29/2018 Abdominal pain, other specified site 07/29/2012 10/29/2018 Vertigo of central origin 04/24/20122018 Peripheral vertigo 04/24/2012 10/29/2018 Headache(784.0) 04/09/2012 10/29/2018 Biliary colic 01/24/2012 11/19/2012 Diabetes mellitus type II 10/15/20112018 Genital herpes 10/28/2009 10/29/2018 Burn erythema of hand 01/12/2009 10/29/2018 Migraine without aura 08/19/2008 10/31/2018 Last Assessment & Plan: Assessment: Patient reports migraine headaches at least twice a week Neurology at 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 Patient has diabetes since the age of 53. Hypomagnesemia 10/30/2018 03/07/2021 Last Assessment & Plan: Assessment: Mg 1.6 PLAN: Continue MgOxide 400mg po BID Hypokalemia 10/28/2018 10/29/2018 Last Assessment & Plan: Assessment: K 3.5 Mg 1.5 Had po supplements in ED PLAN: KCl in IVFs Recheck K and Mg levels in AM Weight loss, unintentional 10/28/201810/31 Last Assessment & Plan: Assessment: Possibly related to uncontrolled DM PLAN: Treatment as above Should have routine health care surveillance - Mammogram; Colonoscopy (colon polyp 11/2012) Gastroparesis due to DM 09/17/2012 10/30/19 19 Pelvic pain in female 07/29/2012 10/29/2018 Abdominal pain, other specified site 07/29/2012 10/29/2018 Vertigo of central origin 04/24/20122018 Peripheral vertigo 04/24/2012 10/29/2018 Headache(784.0) 04/09/2012 10/29/2018 Biliary colic 01/24/2012 11/19/2012 Diabetes mellitus type II 10/15/20112018 Genital herpes 10/28/2009 10/29/2018 Burn erythema of hand 01/12/2009 10/29/2018 Migraine without aura 08/19/2008 10/31/2018 Last Assessment & Plan: Assessment: Patient reports migraine headaches at least twice a week Neurology at 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 Patient has diabetes since the age of 53. Hypomagnesemia 10/30/2018 03/07/2021 Last Assessment & Plan: Assessment: Mg 1.6 PLAN: Continue MgOxide 400mg po BID Hypokalemia 10/28/2018 10/29/2018 Last Assessment & Plan: Assessment: K 3.5 Mg 1.5 Had po supplements in ED PLAN: KCl in IVFs Recheck K and Mg levels in AM Weight loss, unintentional 10/28/201810/31 Last Assessment & Plan: Assessment: Possibly related to uncontrolled DM PLAN: Treatment as above Should have routine health care surveillance - Mammogram; Colonoscopy (colon polyp 11/2012) Gastroparesis due to DM 09/17/2012 10/30/19 Pelvic pain in female 07/29/2012 10/29/2018 Abdominal pain, other specified site 07/29/2012 10/29/2018 Vertigo of central origin 04/24/20122018 Peripheral vertigo 04/24/2012 10/29/2018 Headache(784.0) 04/09/2012 10/29/2018 Biliary colic 01/24/2012 11/19/2012 Diabetes mellitus type II 10/15/20112018 Genital herpes 10/28/2009 10/29/2018 Burn erythema of hand 01/12/2009 10/29/2018 Migraine without aura 08/19/2008 10/31/2018 Last Assessment & Plan: Assessment: Patient reports migraine headaches at least twice a week Neurology at 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 Patient has diabetes since the age of 53. Hypomagnesemia 10/30/2018 03/07/2021 Last Assessment & Plan: Assessment: Mg 1.6 PLAN: Continue MgOxide 400mg po BID Hypokalemia 10/28/2018 10/29/2018 Last Assessment & Plan: Assessment: K 3.5 Mg 1.5 Had po supplements in ED PLAN: KCl in IVFs Recheck K and Mg levels in AM Weight loss, unintentional 10/28/201810/31 Last Assessment & Plan: Assessment: Possibly related to uncontrolled DM PLAN: Treatment as above Should have routine health care surveillance - Mammogram; Colonoscopy (colon polyp 11/2012) Gastroparesis due to DM 09/17/2012 10/30/19 Pelvic pain in female 07/29/2012 10/29/2018 Abdominal pain, other specified site 07/29/2012 10/29/2018 Vertigo of central origin 04/24/20122018 Peripheral vertigo 04/24/2012 10/29/2018 Headache(784.0) 04/09/2012 10/29/2018 Biliary colic 01/24/2012 11/19/2012 Diabetes mellitus type II 10/15/20112018 Genital herpes 10/28/2009 10/29/2018 Burn erythema of hand 01/12/2009 10/29/2018 Migraine without aura 08/19/2008 10/31/2018 Last Assessment & Plan: Assessment: Patient reports migraine headaches at least twice a week Neurology at 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 Patient has diabetes since the age of 53. Hypomagnesemia 10/30/2018 03/07/2021 Last Assessment & Plan: Assessment: Mg 1.6 PLAN: Continue MgOxide 400mg po BID Hypokalemia 10/28/2018 10/29/2018 Last Assessment & Plan: Assessment: K 3.5 Mg 1.5 Had po supplements in ED PLAN: KCl in IVFs Recheck K and Mg levels in AM Weight loss, unintentional 10/28/201810/31 Last Assessment & Plan: Assessment: Possibly related to uncontrolled DM PLAN: Treatment as above Should have routine health care surveillance - Mammogram; Colonoscopy (colon polyp 11/2012) Gastroparesis due to DM 09/17/2012 10/30/19 19 Pelvic pain in female 07/29/2012 10/29/2018 Abdominal pain, other specified site 07/29/2012 10/29/2018 Vertigo of central origin 04/24/20122018 Peripheral vertigo 04/24/2012 10/29/2018 Headache(784.0) 04/09/2012 10/29/2018 Biliary colic 01/24/2012 11/19/2012 Diabetes mellitus type II 10/15/20112018 Genital herpes 10/28/2009 10/29/2018 Burn erythema of hand 01/12/2009 10/29/2018 Migraine without aura 08/19/2008 10/31/2018 Last Assessment & Plan: Assessment: Patient reports migraine headaches at least twice a week Neurology at 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 Patient has diabetes since the age of 53. Hypomagnesemia 10/30/2018 03/07/2021 Last Assessment & Plan: Assessment: Mg 1.6 PLAN: Continue MgOxide 400mg po BID Hypokalemia 10/28/2018 10/29/2018 Last Assessment & Plan: Assessment: K 3.5 Mg 1.5 Had po supplements in ED PLAN: KCl in IVFs Recheck K and Mg levels in AM Weight loss, unintentional 10/28/201810/31 Last Assessment & Plan: Assessment: Possibly related to uncontrolled DM PLAN: Treatment as above Should have routine health care surveillance - Mammogram; Colonoscopy (colon polyp 11/2012) Gastroparesis due to DM 09/17/2012 10/30/19 19 Pelvic pain in female 07/29/2012 10/29/2018 Abdominal pain, other specified site 07/29/2012 10/29/2018 Vertigo of central origin 04/24/20122018 Peripheral vertigo 04/24/2012 10/29/2018 Headache(784.0) 04/09/2012 10/29/2018 Biliary colic 01/24/2012 11/19/2012 Diabetes mellitus type II 10/15/20112018 Genital herpes 10/28/2009 10/29/2018 Burn erythema of hand 01/12/2009 10/29/2018 Migraine without aura 08/19/2008 10/31/2018 Last Assessment & Plan: Assessment: Patient reports migraine headaches at least twice a week Neurology at 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 Patient has diabetes since the age of 53. Hypomagnesemia 10/30/2018 03/07/2021 Last Assessment & Plan: Assessment: Mg 1.6 PLAN: Continue MgOxide 400mg po BID Hypokalemia 10/28/2018 10/29/2018 Last Assessment & Plan: Assessment: K 3.5 Mg 1.5 Had po supplements in ED PLAN: KCl in IVFs Recheck K and Mg levels in AM Weight loss, unintentional 10/28/201810/31 Last Assessment & Plan: Assessment: Possibly related to uncontrolled DM PLAN: Treatment as above Should have routine health care surveillance - Mammogram; Colonoscopy (colon polyp 11/2012) Gastroparesis due to DM 09/17/2012 10/30/19 19 Pelvic pain in female 07/29/2012 10/29/2018 Abdominal pain, other specified site 07/29/2012 10/29/2018 Vertigo of central origin 04/24/20122018 Peripheral vertigo 04/24/2012 10/29/2018 Headache(784.0) 04/09/2012 10/29/2018 Biliary colic 01/24/2012 11/19/2012 Diabetes mellitus type II 10/15/20112018 Genital herpes 10/28/2009 10/29/2018 Burn erythema of hand 01/12/2009 10/29/2018 Migraine without aura 08/19/2008 10/31/2018 Last Assessment & Plan: Assessment: Patient reports migraine headaches at least twice a week Neurology at 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 Patient has diabetes since the age of 53. Hypomagnesemia 10/30/2018 03/07/2021 Last Assessment & Plan: Assessment: Mg 1.6 PLAN: Continue MgOxide 400mg po BID Hypokalemia 10/28/2018 10/29/2018 Last Assessment & Plan: Assessment: K 3.5 Mg 1.5 Had po supplements in ED PLAN: KCl in IVFs Recheck K and Mg levels in AM Weight loss, unintentional 10/28/201810/31 Last Assessment & Plan: Assessment: Possibly related to uncontrolled DM PLAN: Treatment as above Should have routine health care surveillance - Mammogram; Colonoscopy (colon polyp 11/2012) Gastroparesis due to DM 09/17/2012 10/30/19 19 Pelvic pain in female 07/29/2012 10/29/2018 Abdominal pain, other specified site 07/29/2012 10/29/2018 Vertigo of central origin 04/24/20122018 Peripheral vertigo 04/24/2012 10/29/2018 Headache(784.0) 04/09/2012 10/29/2018 Biliary colic 01/24/2012 11/19/2012 Diabetes mellitus type II 10/15/20112018 Genital herpes 10/28/2009 10/29/2018 Burn erythema of hand 01/12/2009 10/29/2018 Migraine without aura 08/19/2008 10/31/2018 Last Assessment & Plan: Assessment: Patient reports migraine headaches at least twice a week Neurology at 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 Patient has diabetes since the age of 53. Hypomagnesemia 10/30/2018 03/07/2021 Last Assessment & Plan: Assessment: Mg 1.6 PLAN: Continue MgOxide 400mg po BID Hypokalemia 10/28/2018 10/29/2018 Last Assessment & Plan: Assessment: K 3.5 Mg 1.5 Had po supplements in ED PLAN: KCl in IVFs Recheck K and Mg levels in AM Weight loss, unintentional 10/28/201810/31 Last Assessment & Plan: Assessment: Possibly related to uncontrolled DM PLAN: Treatment as above Should have routine health care surveillance - Mammogram; Colonoscopy (colon polyp 11/2012) Gastroparesis due to DM 09/17/2012 10/30/19 19 Pelvic pain in female 07/29/2012 10/29/2018 Abdominal pain, other specified site 07/29/2012 10/29/2018 Vertigo of central origin 04/24/20122018 Peripheral vertigo 04/24/2012 10/29/2018 Headache(784.0) 04/09/2012 10/29/2018 Biliary colic 01/24/2012 11/19/2012 Diabetes mellitus type II 10/15/20112018 Genital herpes 10/28/2009 10/29/2018 Burn erythema of hand 01/12/2009 10/29/2018 Migraine without aura 08/19/2008 10/31/2018 Last Assessment & Plan: Assessment: Patient reports migraine headaches at least twice a week Neurology at 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 Patient has diabetes since the age of 53. Hypomagnesemia 10/30/2018 03/07/2021 Last Assessment & Plan: Assessment: Mg 1.6 PLAN: Continue MgOxide 400mg po BID Hypokalemia 10/28/2018 10/29/2018 Last Assessment & Plan: Assessment: K 3.5 Mg 1.5 Had po supplements in ED PLAN: KCl in IVFs Recheck K and Mg levels in AM Weight loss, unintentional 10/28/201810/31 Last Assessment & Plan: Assessment: Possibly related to uncontrolled DM PLAN: Treatment as above Should have routine health care surveillance - Mammogram; Colonoscopy (colon polyp 11/2012) Gastroparesis due to DM 09/17/2012 10/30/19 19 Pelvic pain in female 07/29/2012 10/29/2018 Abdominal pain, other specified site 07/29/2012 10/29/2018 Vertigo of central origin 04/24/20122018 Peripheral vertigo 04/24/2012 10/29/2018 Headache(784.0) 04/09/2012 10/29/2018 Biliary colic 01/24/2012 11/19/2012 Diabetes mellitus type II 10/15/20112018 Genital herpes 10/28/2009 10/29/2018 Burn erythema of hand 01/12/2009 10/29/2018 Migraine without aura 08/19/2008 10/31/2018 Last Assessment & Plan: Assessment: Patient reports migraine headaches at least twice a week Neurology at 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 Patient has diabetes since the age of 53. Hypomagnesemia 10/30/2018 03/07/2021 Last Assessment & Plan: Assessment: Mg 1.6 PLAN: Continue MgOxide 400mg po BID Hypokalemia 10/28/2018 10/29/2018 Last Assessment & Plan: Assessment: K 3.5 Mg 1.5 Had po supplements in ED PLAN: KCl in IVFs Recheck K and Mg levels in AM Weight loss, unintentional 10/28/201810/31 Last Assessment & Plan: Assessment: Possibly related to uncontrolled DM PLAN: Treatment as above Should have routine health care surveillance - Mammogram; Colonoscopy (colon polyp 11/2012) Gastroparesis due to DM 09/17/2012 10/30/19 19 Pelvic pain in female 07/29/2012 10/29/2018 Abdominal pain, other specified site 07/29/2012 10/29/2018 Vertigo of central origin 04/24/20122018 Peripheral vertigo 04/24/2012 10/29/2018 Headache(784.0) 04/09/2012 10/29/2018 Biliary colic 01/24/2012 11/19/2012 Diabetes mellitus type II 10/15/20112018 Genital herpes 10/28/2009 10/29/2018 Burn erythema of hand 01/12/2009 10/29/2018 Migraine without aura 08/19/2008 10/31/2018 Last Assessment & Plan: Assessment: Patient reports migraine headaches at least twice a week Neurology at 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 Patient has diabetes since the age of 53. Hypomagnesemia 10/30/2018 03/07/2021 Last Assessment & Plan: Assessment: Mg 1.6 PLAN: Continue MgOxide 400mg po BID Hypokalemia 10/28/2018 10/29/2018 Last Assessment & Plan: Assessment: K 3.5 Mg 1.5 Had po supplements in ED PLAN: KCl in IVFs Recheck K and Mg levels in AM Weight loss, unintentional 10/28/201810/31 Last Assessment & Plan: Assessment: Possibly related to uncontrolled DM PLAN: Treatment as above Should have routine health care surveillance - Mammogram; Colonoscopy (colon polyp 11/2012) Gastroparesis due to DM 09/17/2012 10/30/19 19 Pelvic pain in female 07/29/2012 10/29/2018 Abdominal pain, other specified site 07/29/2012 10/29/2018 Vertigo of central origin 04/24/20122018 Peripheral vertigo 04/24/2012 10/29/2018 Headache(784.0) 04/09/2012 10/29/2018 Biliary colic 01/24/2012 11/19/2012 Diabetes mellitus type II 10/15/20112018 Genital herpes 10/28/2009 10/29/2018 Burn erythema of hand 01/12/2009 10/29/2018 Migraine without aura 08/19/2008 10/31/2018 Last Assessment & Plan: Assessment: Patient reports migraine headaches at least twice a week Neurology at 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 Patient has diabetes since the age of 53. Hypomagnesemia 10/30/2018 03/07/2021 Last Assessment & Plan: Assessment: Mg 1.6 PLAN: Continue MgOxide 400mg po BID Hypokalemia 10/28/2018 10/29/2018 Last Assessment & Plan: Assessment: K 3.5 Mg 1.5 Had po supplements in ED PLAN: KCl in IVFs Recheck K and Mg levels in AM Weight loss, unintentional 10/28/201810/31 Last Assessment & Plan: Assessment: Possibly related to uncontrolled DM PLAN: Treatment as above Should have routine health care surveillance - Mammogram; Colonoscopy (colon polyp 11/2012) Gastroparesis due to DM 09/17/2012 10/30/19 19 Pelvic pain in female 07/29/2012 10/29/2018 Abdominal pain, other specified site 07/29/2012 10/29/2018 Vertigo of central origin 04/24/20122018 Peripheral vertigo 04/24/2012 10/29/2018 Headache(784.0) 04/09/2012 10/29/2018 Biliary colic 01/24/2012 11/19/2012 Diabetes mellitus type II 10/15/20112018 Genital herpes 10/28/2009 10/29/2018 Burn erythema of hand 01/12/2009 10/29/2018 Migraine without aura 08/19/2008 10/31/2018 Last Assessment & Plan: Assessment: Patient reports migraine headaches at least twice a week Neurology at 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 Patient has diabetes since the age of 53. Hypomagnesemia 10/30/2018 03/07/2021 Last Assessment & Plan: Assessment: Mg 1.6 PLAN: Continue MgOxide 400mg po BID Hypokalemia 10/28/2018 10/29/2018 Last Assessment & Plan: Assessment: K 3.5 Mg 1.5 Had po supplements in ED PLAN: KCl in IVFs Recheck K and Mg levels in AM Weight loss, unintentional 10/28/201810/31 Last Assessment & Plan: Assessment: Possibly related to uncontrolled DM PLAN: Treatment as above Should have routine health care surveillance - Mammogram; Colonoscopy (colon polyp 11/2012) Gastroparesis due to DM 09/17/2012 10/30/19 19 Pelvic pain in female 07/29/2012 10/29/2018 Abdominal pain, other specified site 07/29/2012 10/29/2018 Vertigo of central origin 04/24/20122018 Peripheral vertigo 04/24/2012 10/29/2018 Headache(784.0) 04/09/2012 10/29/2018 Biliary colic 01/24/2012 11/19/2012 Diabetes mellitus type II 10/15/20112018 Genital herpes 10/28/2009 10/29/2018 Burn erythema of hand 01/12/2009 10/29/2018 Migraine without aura 08/19/2008 10/31/2018 Last Assessment & Plan: Assessment: Patient reports migraine headaches at least twice a week Neurology at 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 Patient has diabetes since the age of 53. Hypomagnesemia 10/30/2018 03/07/2021 Last Assessment & Plan: Assessment: Mg 1.6 PLAN: Continue MgOxide 400mg po BID Hypokalemia 10/28/2018 10/29/2018 Last Assessment & Plan: Assessment: K 3.5 Mg 1.5 Had po supplements in ED PLAN: KCl in IVFs Recheck K and Mg levels in AM Weight loss, unintentional 10/28/201810/31 Last Assessment & Plan: Assessment: Possibly related to uncontrolled DM PLAN: Treatment as above Should have routine health care surveillance - Mammogram; Colonoscopy (colon polyp 11/2012) Gastroparesis due to DM 09/17/2012 10/30/19 19 Pelvic pain in female 07/29/2012 10/29/2018 Abdominal pain, other specified site 07/29/2012 10/29/2018 Vertigo of central origin 04/24/20122018 Peripheral vertigo 04/24/2012 10/29/2018 Headache(784.0) 04/09/2012 10/29/2018 Biliary colic 01/24/2012 11/19/2012 Diabetes mellitus type II 10/15/20112018 Genital herpes 10/28/2009 10/29/2018 Burn erythema of hand 01/12/2009 10/29/2018 Migraine without aura 08/19/2008 10/31/2018 Last Assessment & Plan: Assessment: Patient reports migraine headaches at least twice a week Neurology at 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 Patient has diabetes since the age of 53. Hypomagnesemia 10/30/2018 03/07/2021 Last Assessment & Plan: Assessment: Mg 1.6 PLAN: Continue MgOxide 400mg po BID Hypokalemia 10/28/2018 10/29/2018 Last Assessment & Plan: Assessment: K 3.5 Mg 1.5 Had po supplements in ED PLAN: KCl in IVFs Recheck K and Mg levels in AM Weight loss, unintentional 10/28/201810/31 Last Assessment & Plan: Assessment: Possibly related to uncontrolled DM PLAN: Treatment as above Should have routine health care surveillance - Mammogram; Colonoscopy (colon polyp 11/2012) Gastroparesis due to DM 09/17/2012 10/30/19 19 Pelvic pain in female 07/29/2012 10/29/2018 Abdominal pain, other specified site 07/29/2012 10/29/2018 Vertigo of central origin 04/24/20122018 Peripheral vertigo 04/24/2012 10/29/2018 Headache(784.0) 04/09/2012 10/29/2018 Biliary colic 01/24/2012 11/19/2012 Diabetes mellitus type II 10/15/20112018 Genital herpes 10/28/2009 10/29/2018 Burn erythema of hand 01/12/2009 10/29/2018 Migraine without aura 08/19/2008 10/31/2018 Last Assessment & Plan: Assessment: Patient reports migraine headaches at least twice a week Neurology at 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 Patient has diabetes since the age of 53. Hypomagnesemia 10/30/2018 03/07/2021 Last Assessment & Plan: Assessment: Mg 1.6 PLAN: Continue MgOxide 400mg po BID Hypokalemia 10/28/2018 10/29/2018 Last Assessment & Plan: Assessment: K 3.5 Mg 1.5 Had po supplements in ED PLAN: KCl in IVFs Recheck K and Mg levels in AM Weight loss, unintentional 10/28/201810/31 Last Assessment & Plan: Assessment: Possibly related to uncontrolled DM PLAN: Treatment as above Should have routine health care surveillance - Mammogram; Colonoscopy (colon polyp 11/2012) Gastroparesis due to DM 09/17/2012 10/30/19 19 Pelvic pain in female 07/29/2012 10/29/2018 Abdominal pain, other specified site 07/29/2012 10/29/2018 Vertigo of central origin 04/24/20122018 Peripheral vertigo 04/24/2012 10/29/2018 Headache(784.0) 04/09/2012 10/29/2018 Biliary colic 01/24/2012 11/19/2012 Diabetes mellitus type II 10/15/20112018 Genital herpes 10/28/2009 10/29/2018 Burn erythema of hand 01/12/2009 10/29/2018 Migraine without aura 08/19/2008 10/31/2018 Last Assessment & Plan: Assessment: Patient reports migraine headaches at least twice a week Neurology at 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 Patient has diabetes since the age of 53. Hypomagnesemia 10/30/2018 03/07/2021 Last Assessment & Plan: Assessment: Mg 1.6 PLAN: Continue MgOxide 400mg po BID Hypokalemia 10/28/2018 10/29/2018 Last Assessment & Plan: Assessment: K 3.5 Mg 1.5 Had po supplements in ED PLAN: KCl in IVFs Recheck K and Mg levels in AM Weight loss, unintentional 10/28/201810/31 Last Assessment & Plan: Assessment: Possibly related to uncontrolled DM PLAN: Treatment as above Should have routine health care surveillance - Mammogram; Colonoscopy (colon polyp 11/2012) Gastroparesis due to DM 09/17/2012 10/30/19 19 Pelvic pain in female 07/29/2012 10/29/2018 Abdominal pain, other specified site 07/29/2012 10/29/2018 Vertigo of central origin 04/24/20122018 Peripheral vertigo 04/24/2012 10/29/2018 Headache(784.0) 04/09/2012 10/29/2018 Biliary colic 01/24/2012 11/19/2012 Diabetes mellitus type II 10/15/20112018 Genital herpes 10/28/2009 10/29/2018 Burn erythema of hand 01/12/2009 10/29/2018 Migraine without aura 08/19/2008 10/31/2018 Last Assessment & Plan: Assessment: Patient reports migraine headaches at least twice a week Neurology at 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 Patient has diabetes since the age of 53. Hypomagnesemia 10/30/2018 03/07/2021 Last Assessment & Plan: Assessment: Mg 1.6 PLAN: Continue MgOxide 400mg po BID Hypokalemia 10/28/2018 10/29/2018 Last Assessment & Plan: Assessment: K 3.5 Mg 1.5 Had po supplements in ED PLAN: KCl in IVFs Recheck K and Mg levels in AM Weight loss, unintentional 10/28/201810/31 Last Assessment & Plan: Assessment: Possibly related to uncontrolled DM PLAN: Treatment as above Should have routine health care surveillance - Mammogram; Colonoscopy (colon polyp 11/2012) Gastroparesis due to DM 09/17/2012 10/30/19 19 Pelvic pain in female 07/29/2012 10/29/2018 Abdominal pain, other specified site 07/29/2012 10/29/2018 Vertigo of central origin 04/24/20122018 Peripheral vertigo 04/24/2012 10/29/2018 Headache(784.0) 04/09/2012 10/29/2018 Biliary colic 01/24/2012 11/19/2012 Diabetes mellitus type II 10/15/20112018 Genital herpes 10/28/2009 10/29/2018 Burn erythema of hand 01/12/2009 10/29/2018 Migraine without aura 08/19/2008 10/31/2018 Last Assessment & Plan: Assessment: Patient reports migraine headaches at least twice a week Neurology at 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 Patient has diabetes since the age of 53. Hypomagnesemia 10/30/2018 03/07/2021 Last Assessment & Plan: Assessment: Mg 1.6 PLAN: Continue MgOxide 400mg po BID Hypokalemia 10/28/2018 10/29/2018 Last Assessment & Plan: Assessment: K 3.5 Mg 1.5 Had po supplements in ED PLAN: KCl in IVFs Recheck K and Mg levels in AM Weight loss, unintentional 10/28/201810/31 Last Assessment & Plan: Assessment: Possibly related to uncontrolled DM PLAN: Treatment as above Should have routine health care surveillance - Mammogram; Colonoscopy (colon polyp 11/2012) Gastroparesis due to DM 09/17/2012 10/30/19 19 Pelvic pain in female 07/29/2012 10/29/2018 Abdominal pain, other specified site 07/29/2012 10/29/2018 Vertigo of central origin 04/24/20122018 Peripheral vertigo 04/24/2012 10/29/2018 Headache(784.0) 04/09/2012 10/29/2018 Biliary colic 01/24/2012 11/19/2012 Diabetes mellitus type II 10/15/20112018 Genital herpes 10/28/2009 10/29/2018 Burn erythema of hand 01/12/2009 10/29/2018 Migraine without aura 08/19/2008 10/31/2018 Last Assessment & Plan: Assessment: Patient reports migraine headaches at least twice a week Neurology at 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 Patient has diabetes since the age of 53. Hypomagnesemia 10/30/2018 03/07/2021 Last Assessment & Plan: Assessment: Mg 1.6 PLAN: Continue MgOxide 400mg po BID Hypokalemia 10/28/2018 10/29/2018 Last Assessment & Plan: Assessment: K 3.5 Mg 1.5 Had po supplements in ED PLAN: KCl in IVFs Recheck K and Mg levels in AM Weight loss, unintentional 10/28/201810/31 Last Assessment & Plan: Assessment: Possibly related to uncontrolled DM PLAN: Treatment as above Should have routine health care surveillance - Mammogram; Colonoscopy (colon polyp 11/2012) Gastroparesis due to DM 09/17/2012 10/30/19 19 Pelvic pain in female 07/29/2012 10/29/2018 Abdominal pain, other specified site 07/29/2012 10/29/2018 Vertigo of central origin 04/24/20122018 Peripheral vertigo 04/24/2012 10/29/2018 Headache(784.0) 04/09/2012 10/29/2018 Biliary colic 01/24/2012 11/19/2012 Diabetes mellitus type II 10/15/20112018 Genital herpes 10/28/2009 10/29/2018 Burn erythema of hand 01/12/2009 10/29/2018 Migraine without aura 08/19/2008 10/31/2018 Last Assessment & Plan: Assessment: Patient reports migraine headaches at least twice a week Neurology at 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 Patient has diabetes since the age of 53. Hypomagnesemia 10/30/2018 03/07/2021 Last Assessment & Plan: Assessment: Mg 1.6 PLAN: Continue MgOxide 400mg po BID Hypokalemia 10/28/2018 10/29/2018 Last Assessment & Plan: Assessment: K 3.5 Mg 1.5 Had po supplements in ED PLAN: KCl in IVFs Recheck K and Mg levels in AM Weight loss, unintentional 10/28/201810/31 Last Assessment & Plan: Assessment: Possibly related to uncontrolled DM PLAN: Treatment as above Should have routine health care surveillance - Mammogram; Colonoscopy (colon polyp 11/2012) Gastroparesis due to DM 09/17/2012 10/30/19 19 Pelvic pain in female 07/29/2012 10/29/2018 Abdominal pain, other specified site 07/29/2012 10/29/2018 Vertigo of central origin 04/24/20122018 Peripheral vertigo 04/24/2012 10/29/2018 Headache(784.0) 04/09/2012 10/29/2018 Biliary colic 01/24/2012 11/19/2012 Diabetes mellitus type II 10/15/20112018 Genital herpes 10/28/2009 10/29/2018 Burn erythema of hand 01/12/2009 10/29/2018 Migraine without aura 08/19/2008 10/31/2018 Last Assessment & Plan: Assessment: Patient reports migraine headaches at least twice a week Neurology at 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 Patient has diabetes since the age of 53. Hypomagnesemia 10/30/2018 03/07/2021 Last Assessment & Plan: Assessment: Mg 1.6 PLAN: Continue MgOxide 400mg po BID Hypokalemia 10/28/2018 10/29/2018 Last Assessment & Plan: Assessment: K 3.5 Mg 1.5 Had po supplements in ED PLAN: KCl in IVFs Recheck K and Mg levels in AM Weight loss, unintentional 10/28/201810/31 Last Assessment & Plan: Assessment: Possibly related to uncontrolled DM PLAN: Treatment as above Should have routine health care surveillance - Mammogram; Colonoscopy (colon polyp 11/2012) Gastroparesis due to DM 09/17/2012 10/30/19 19 Pelvic pain in female 07/29/2012 10/29/2018 Abdominal pain, other specified site 07/29/2012 10/29/2018 Vertigo of central origin 04/24/20122018 Peripheral vertigo 04/24/2012 10/29/2018 Headache(784.0) 04/09/2012 10/29/2018 Biliary colic 01/24/2012 11/19/2012 Diabetes mellitus type II 10/15/20112018 Genital herpes 10/28/2009 10/29/2018 Burn erythema of hand 01/12/2009 10/29/2018 Migraine without aura 08/19/2008 10/31/2018 Last Assessment & Plan: Assessment: Patient reports migraine headaches at least twice a week Neurology at 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 Patient has diabetes since the age of 53. Hypomagnesemia 10/30/2018 03/07/2021 Last Assessment & Plan: Assessment: Mg 1.6 PLAN: Continue MgOxide 400mg po BID Hypokalemia 10/28/2018 10/29/2018 Last Assessment & Plan: Assessment: K 3.5 Mg 1.5 Had po supplements in ED PLAN: KCl in IVFs Recheck K and Mg levels in AM Weight loss, unintentional 10/28/201810/31 Last Assessment & Plan: Assessment: Possibly related to uncontrolled DM PLAN: Treatment as above Should have routine health care surveillance - Mammogram; Colonoscopy (colon polyp 11/2012) Gastroparesis due to DM 09/17/2012 10/30/19 19 Pelvic pain in female 07/29/2012 10/29/2018 Abdominal pain, other specified site 07/29/2012 10/29/2018 Vertigo of central origin 04/24/20122018 Peripheral vertigo 04/24/2012 10/29/2018 Headache(784.0) 04/09/2012 10/29/2018 Biliary colic 01/24/2012 11/19/2012 Diabetes mellitus type II 10/15/20112018 Genital herpes 10/28/2009 10/29/2018 Burn erythema of hand 01/12/2009 10/29/2018 Migraine without aura 08/19/2008 10/31/2018 Last Assessment & Plan: Assessment: Patient reports migraine headaches at least twice a week Neurology at 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 Patient has diabetes since the age of 53. Hypomagnesemia 10/30/2018 03/07/2021 Last Assessment & Plan: Assessment: Mg 1.6 PLAN: Continue MgOxide 400mg po BID Hypokalemia 10/28/2018 10/29/2018 Last Assessment & Plan: Assessment: K 3.5 Mg 1.5 Had po supplements in ED PLAN: KCl in IVFs Recheck K and Mg levels in AM Weight loss, unintentional 10/28/201810/31 Last Assessment & Plan: Assessment: Possibly related to uncontrolled DM PLAN: Treatment as above Should have routine health care surveillance - Mammogram; Colonoscopy (colon polyp 11/2012) Gastroparesis due to DM 09/17/2012 10/30/19 19 Pelvic pain in female 07/29/2012 10/29/2018 Abdominal pain, other specified site 07/29/2012 10/29/2018 Vertigo of central origin 04/24/20122018 Peripheral vertigo 04/24/2012 10/29/2018 Headache(784.0) 04/09/2012 10/29/2018 Biliary colic 01/24/2012 11/19/2012 Diabetes mellitus type II 10/15/20112018 Genital herpes 10/28/2009 10/29/2018 Burn erythema of hand 01/12/2009 10/29/2018 Migraine without aura 08/19/2008 10/31/2018 Last Assessment & Plan: Assessment: Patient reports migraine headaches at least twice a week Neurology at 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 Patient has diabetes since the age of 53. Hypomagnesemia 10/30/2018 03/07/2021 Last Assessment & Plan: Assessment: Mg 1.6 PLAN: Continue MgOxide 400mg po BID Hypokalemia 10/28/2018 10/29/2018 Last Assessment & Plan: Assessment: K 3.5 Mg 1.5 Had po supplements in ED PLAN: KCl in IVFs Recheck K and Mg levels in AM Weight loss, unintentional 10/28/201810/31 Last Assessment & Plan: Assessment: Possibly related to uncontrolled DM PLAN: Treatment as above Should have routine health care surveillance - Mammogram; Colonoscopy (colon polyp 11/2012) Gastroparesis due to DM 09/17/2012 10/30/19 19 Pelvic pain in female 07/29/2012 10/29/2018 Abdominal pain, other specified site 07/29/2012 10/29/2018 Vertigo of central origin 04/24/20122018 Peripheral vertigo 04/24/2012 10/29/2018 Headache(784.0) 04/09/2012 10/29/2018 Biliary colic 01/24/2012 11/19/2012 Diabetes mellitus type II 10/15/20112018 Genital herpes 10/28/2009 10/29/2018 Burn erythema of hand 01/12/2009 10/29/2018 Migraine without aura 08/19/2008 10/31/2018 Last Assessment & Plan: Assessment: Patient reports migraine headaches at least twice a week Neurology at 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 Patient has diabetes since the age of 53. Hypomagnesemia 10/30/2018 03/07/2021 Last Assessment & Plan: Assessment: Mg 1.6 PLAN: Continue MgOxide 400mg po BID Hypokalemia 10/28/2018 10/29/2018 Last Assessment & Plan: Assessment: K 3.5 Mg 1.5 Had po supplements in ED PLAN: KCl in IVFs Recheck K and Mg levels in AM Weight loss, unintentional 10/28/201810/31 Last Assessment & Plan: Assessment: Possibly related to uncontrolled DM PLAN: Treatment as above Should have routine health care surveillance - Mammogram; Colonoscopy (colon polyp 11/2012) Gastroparesis due to DM 09/17/2012 10/30/19 19 Pelvic pain in female 07/29/2012 10/29/2018 Abdominal pain, other specified site 07/29/2012 10/29/2018 Vertigo of central origin 04/24/20122018 Peripheral vertigo 04/24/2012 10/29/2018 Headache(784.0) 04/09/2012 10/29/2018 Biliary colic 01/24/2012 11/19/2012 Diabetes mellitus type II 10/15/20112018 Genital herpes 10/28/2009 10/29/2018 Burn erythema of hand 01/12/2009 10/29/2018 Migraine without aura 08/19/2008 10/31/2018 Last Assessment & Plan: Assessment: Patient reports migraine headaches at least twice a week Neurology at 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 Patient has diabetes since the age of 53. Hypomagnesemia 10/30/2018 03/07/2021 Last Assessment & Plan: Assessment: Mg 1.6 PLAN: Continue MgOxide 400mg po BID Hypokalemia 10/28/2018 10/29/2018 Last Assessment & Plan: Assessment: K 3.5 Mg 1.5 Had po supplements in ED PLAN: KCl in IVFs Recheck K and Mg levels in AM Weight loss, unintentional 10/28/201810/31 Last Assessment & Plan: Assessment: Possibly related to uncontrolled DM PLAN: Treatment as above Should have routine health care surveillance - Mammogram; Colonoscopy (colon polyp 11/2012) Gastroparesis due to DM 09/17/2012 10/30/19 19 Pelvic pain in female 07/29/2012 10/29/2018 Abdominal pain, other specified site 07/29/2012 10/29/2018 Vertigo of central origin 04/24/20122018 Peripheral vertigo 04/24/2012 10/29/2018 Headache(784.0) 04/09/2012 10/29/2018 Biliary colic 01/24/2012 11/19/2012 Diabetes mellitus type II 10/15/20112018 Genital herpes 10/28/2009 10/29/2018 Burn erythema of hand 01/12/2009 10/29/2018 Migraine without aura 08/19/2008 10/31/2018 Last Assessment & Plan: Assessment: Patient reports migraine headaches at least twice a week Neurology at 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 Patient has diabetes since the age of 53. Hypomagnesemia 10/30/2018 03/07/2021 Last Assessment & Plan: Assessment: Mg 1.6 PLAN: Continue MgOxide 400mg po BID Hypokalemia 10/28/2018 10/29/2018 Last Assessment & Plan: Assessment: K 3.5 Mg 1.5 Had po supplements in ED PLAN: KCl in IVFs Recheck K and Mg levels in AM Weight loss, unintentional 10/28/201810/31 Last Assessment & Plan: Assessment: Possibly related to uncontrolled DM PLAN: Treatment as above Should have routine health care surveillance - Mammogram; Colonoscopy (colon polyp 11/2012) Gastroparesis due to DM 09/17/2012 10/30/19 19 Pelvic pain in female 07/29/2012 10/29/2018 Abdominal pain, other specified site 07/29/2012 10/29/2018 Vertigo of central origin 04/24/20122018 Peripheral vertigo 04/24/2012 10/29/2018 Headache(784.0) 04/09/2012 10/29/2018 Biliary colic 01/24/2012 11/19/2012 Diabetes mellitus type II 10/15/20112018 Genital herpes 10/28/2009 10/29/2018 Burn erythema of hand 01/12/2009 10/29/2018 Migraine without aura 08/19/2008 10/31/2018 Last Assessment & Plan: Assessment: Patient reports migraine headaches at least twice a week Neurology at 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 Patient has diabetes since the age of 53. Hypomagnesemia 10/30/2018 03/07/2021 Last Assessment & Plan: Assessment: Mg 1.6 PLAN: Continue MgOxide 400mg po BID Hypokalemia 10/28/2018 10/29/2018 Last Assessment & Plan: Assessment: K 3.5 Mg 1.5 Had po supplements in ED PLAN: KCl in IVFs Recheck K and Mg levels in AM Weight loss, unintentional 10/28/201810/31 Last Assessment & Plan: Assessment: Possibly related to uncontrolled DM PLAN: Treatment as above Should have routine health care surveillance - Mammogram; Colonoscopy (colon polyp 11/2012) Gastroparesis due to DM 09/17/2012 10/30/19 19 Pelvic pain in female 07/29/2012 10/29/2018 Abdominal pain, other specified site 07/29/2012 10/29/2018 Vertigo of central origin 04/24/20122018 Peripheral vertigo 04/24/2012 10/29/2018 Headache(784.0) 04/09/2012 10/29/2018 Biliary colic 01/24/2012 11/19/2012 Diabetes mellitus type II 10/15/20112018 Genital herpes 10/28/2009 10/29/2018 Burn erythema of hand 01/12/2009 10/29/2018 Migraine without aura 08/19/2008 10/31/2018 Last Assessment & Plan: Assessment: Patient reports migraine headaches at least twice a week Neurology at 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 Patient has diabetes since the age of 53. Hypomagnesemia 10/30/2018 03/07/2021 Last Assessment & Plan: Assessment: Mg 1.6 PLAN: Continue MgOxide 400mg po BID Hypokalemia 10/28/2018 10/29/2018 Last Assessment & Plan: Assessment: K 3.5 Mg 1.5 Had po supplements in ED PLAN: KCl in IVFs Recheck K and Mg levels in AM Weight loss, unintentional 10/28/201810/31 Last Assessment & Plan: Assessment: Possibly related to uncontrolled DM PLAN: Treatment as above Should have routine health care surveillance - Mammogram; Colonoscopy (colon polyp 11/2012) Gastroparesis due to DM 09/17/2012 10/30/19 19 Pelvic pain in female 07/29/2012 10/29/2018 Abdominal pain, other specified site 07/29/2012 10/29/2018 Vertigo of central origin 04/24/20122018 Peripheral vertigo 04/24/2012 10/29/2018 Headache(784.0) 04/09/2012 10/29/2018 Biliary colic 01/24/2012 11/19/2012 Diabetes mellitus type II 10/15/20112018 Genital herpes 10/28/2009 10/29/2018 Burn erythema of hand 01/12/2009 10/29/2018 Migraine without aura 08/19/2008 10/31/2018 Last Assessment & Plan: Assessment: Patient reports migraine headaches at least twice a week Neurology at 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 Patient has diabetes since the age of 53. Hypomagnesemia 10/30/2018 03/07/2021 Last Assessment & Plan: Assessment: Mg 1.6 PLAN: Continue MgOxide 400mg po BID Hypokalemia 10/28/2018 10/29/2018 Last Assessment & Plan: Assessment: K 3.5 Mg 1.5 Had po supplements in ED PLAN: KCl in IVFs Recheck K and Mg levels in AM Weight loss, unintentional 10/28/201810/31 Last Assessment & Plan: Assessment: Possibly related to uncontrolled DM PLAN: Treatment as above Should have routine health care surveillance - Mammogram; Colonoscopy (colon polyp 11/2012) Gastroparesis due to DM 09/17/2012 10/30/19 19 Pelvic pain in female 07/29/2012 10/29/2018 Abdominal pain, other specified site 07/29/2012 10/29/2018 Vertigo of central origin 04/24/20122018 Peripheral vertigo 04/24/2012 10/29/2018 Headache(784.0) 04/09/2012 10/29/2018 Biliary colic 01/24/2012 11/19/2012 Diabetes mellitus type II 10/15/20112018 Genital herpes 10/28/2009 10/29/2018 Burn erythema of hand 01/12/2009 10/29/2018 Migraine without aura 08/19/2008 10/31/2018 Last Assessment & Plan: Assessment: Patient reports migraine headaches at least twice a week Neurology at 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 Patient has diabetes since the age of 53. Hypomagnesemia 10/30/2018 03/07/2021 Last Assessment & Plan: Assessment: Mg 1.6 PLAN: Continue MgOxide 400mg po BID Hypokalemia 10/28/2018 10/29/2018 Last Assessment & Plan: Assessment: K 3.5 Mg 1.5 Had po supplements in ED PLAN: KCl in IVFs Recheck K and Mg levels in AM Weight loss, unintentional 10/28/201810/31 Last Assessment & Plan: Assessment: Possibly related to uncontrolled DM PLAN: Treatment as above Should have routine health care surveillance - Mammogram; Colonoscopy (colon polyp 11/2012) Gastroparesis due to DM 09/17/2012 10/30/19 19 Pelvic pain in female 07/29/2012 10/29/2018 Abdominal pain, other specified site 07/29/2012 10/29/2018 Vertigo of central origin 04/24/20122018 Peripheral vertigo 04/24/2012 10/29/2018 Headache(784.0) 04/09/2012 10/29/2018 Biliary colic 01/24/2012 11/19/2012 Diabetes mellitus type II 10/15/20112018 Genital herpes 10/28/2009 10/29/2018 Burn erythema of hand 01/12/2009 10/29/2018 Migraine without aura 08/19/2008 10/31/2018 Last Assessment & Plan: Assessment: Patient reports migraine headaches at least twice a week Neurology at 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 Patient has diabetes since the age of 53. Hypomagnesemia 10/30/2018 03/07/2021 Last Assessment & Plan: Assessment: Mg 1.6 PLAN: Continue MgOxide 400mg po BID Hypokalemia 10/28/2018 10/29/2018 Last Assessment & Plan: Assessment: K 3.5 Mg 1.5 Had po supplements in ED PLAN: KCl in IVFs Recheck K and Mg levels in AM Weight loss, unintentional 10/28/201810/31 Last Assessment & Plan: Assessment: Possibly related to uncontrolled DM PLAN: Treatment as above Should have routine health care surveillance - Mammogram; Colonoscopy (colon polyp 11/2012) Gastroparesis due to DM 09/17/2012 10/30/19 19 Pelvic pain in female 07/29/2012 10/29/2018 Abdominal pain, other specified site 07/29/2012 10/29/2018 Vertigo of central origin 04/24/20122018 Peripheral vertigo 04/24/2012 10/29/2018 Headache(784.0) 04/09/2012 10/29/2018 Biliary colic 01/24/2012 11/19/2012 Diabetes mellitus type II 10/15/20112018 Genital herpes 10/28/2009 10/29/2018 Burn erythema of hand 01/12/2009 10/29/2018 Migraine without aura 08/19/2008 10/31/2018 Last Assessment & Plan: Assessment: Patient reports migraine headaches at least twice a week Neurology at 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 Patient has diabetes since the age of 53. Hypomagnesemia 10/30/2018 03/07/2021 Last Assessment & Plan: Assessment: Mg 1.6 PLAN: Continue MgOxide 400mg po BID Hypokalemia 10/28/2018 10/29/2018 Last Assessment & Plan: Assessment: K 3.5 Mg 1.5 Had po supplements in ED PLAN: KCl in IVFs Recheck K and Mg levels in AM Weight loss, unintentional 10/28/201810/31 Last Assessment & Plan: Assessment: Possibly related to uncontrolled DM PLAN: Treatment as above Should have routine health care surveillance - Mammogram; Colonoscopy (colon polyp 11/2012) Gastroparesis due to DM 09/17/2012 10/30/19 19 Pelvic pain in female 07/29/2012 10/29/2018 Abdominal pain, other specified site 07/29/2012 10/29/2018 Vertigo of central origin 04/24/20122018 Peripheral vertigo 04/24/2012 10/29/2018 Headache(784.0) 04/09/2012 10/29/2018 Biliary colic 01/24/2012 11/19/2012 Diabetes mellitus type II 10/15/20112018 Genital herpes 10/28/2009 10/29/2018 Burn erythema of hand 01/12/2009 10/29/2018 Migraine without aura 08/19/2008 10/31/2018 Last Assessment & Plan: Assessment: Patient reports migraine headaches at least twice a week Neurology at 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 Patient has diabetes since the age of 53. Hypomagnesemia 10/30/2018 03/07/2021 Last Assessment & Plan: Assessment: Mg 1.6 PLAN: Continue MgOxide 400mg po BID Hypokalemia 10/28/2018 10/29/2018 Last Assessment & Plan: Assessment: K 3.5 Mg 1.5 Had po supplements in ED PLAN: KCl in IVFs Recheck K and Mg levels in AM Weight loss, unintentional 10/28/201810/31 Last Assessment & Plan: Assessment: Possibly related to uncontrolled DM PLAN: Treatment as above Should have routine health care surveillance - Mammogram; Colonoscopy (colon polyp 11/2012) Gastroparesis due to DM 09/17/2012 10/30/19 19 Pelvic pain in female 07/29/2012 10/29/2018 Abdominal pain, other specified site 07/29/2012 10/29/2018 Vertigo of central origin 04/24/20122018 Peripheral vertigo 04/24/2012 10/29/2018 Headache(784.0) 04/09/2012 10/29/2018 Biliary colic 01/24/2012 11/19/2012 Diabetes mellitus type II 10/15/20112018 Genital herpes 10/28/2009 10/29/2018 Burn erythema of hand 01/12/2009 10/29/2018 Migraine without aura 08/19/2008 10/31/2018 Last Assessment & Plan: Assessment: Patient reports migraine headaches at least twice a week Neurology at 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 Patient has diabetes since the age of 53. Hypomagnesemia 10/30/2018 03/07/2021 Last Assessment & Plan: Assessment: Mg 1.6 PLAN: Continue MgOxide 400mg po BID Hypokalemia 10/28/2018 10/29/2018 Last Assessment & Plan: Assessment: K 3.5 Mg 1.5 Had po supplements in ED PLAN: KCl in IVFs Recheck K and Mg levels in AM Weight loss, unintentional 10/28/201810/31 Last Assessment & Plan: Assessment: Possibly related to uncontrolled DM PLAN: Treatment as above Should have routine health care surveillance - Mammogram; Colonoscopy (colon polyp 11/2012) Gastroparesis due to DM 09/17/2012 10/30/19 19 Pelvic pain in female 07/29/2012 10/29/2018 Abdominal pain, other specified site 07/29/2012 10/29/2018 Vertigo of central origin 04/24/20122018 Peripheral vertigo 04/24/2012 10/29/2018 Headache(784.0) 04/09/2012 10/29/2018 Biliary colic 01/24/2012 11/19/2012 Diabetes mellitus type II 10/15/20112018 Genital herpes 10/28/2009 10/29/2018 Burn erythema of hand 01/12/2009 10/29/2018 Migraine without aura 08/19/2008 10/31/2018 Last Assessment & Plan: Assessment: Patient reports migraine headaches at least twice a week Neurology at 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 Patient has diabetes since the age of 53. Hypomagnesemia 10/30/2018 03/07/2021 Last Assessment & Plan: Assessment: Mg 1.6 PLAN: Continue MgOxide 400mg po BID Hypokalemia 10/28/2018 10/29/2018 Last Assessment & Plan: Assessment: K 3.5 Mg 1.5 Had po supplements in ED PLAN: KCl in IVFs Recheck K and Mg levels in AM Weight loss, unintentional 10/28/201810/31 Last Assessment & Plan: Assessment: Possibly related to uncontrolled DM PLAN: Treatment as above Should have routine health care surveillance - Mammogram; Colonoscopy (colon polyp 11/2012) Gastroparesis due to DM 09/17/2012 10/30/19 19 Pelvic pain in female 07/29/2012 10/29/2018 Abdominal pain, other specified site 07/29/2012 10/29/2018 Vertigo of central origin 04/24/20122018 Peripheral vertigo 04/24/2012 10/29/2018 Headache(784.0) 04/09/2012 10/29/2018 Biliary colic 01/24/2012 11/19/2012 Diabetes mellitus type II 10/15/20112018 Genital herpes 10/28/2009 10/29/2018 Burn erythema of hand 01/12/2009 10/29/2018 Migraine without aura 08/19/2008 10/31/2018 Last Assessment & Plan: Assessment: Patient reports migraine headaches at least twice a week Neurology at 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 Patient has diabetes since the age of 53. Hypomagnesemia 10/30/2018 03/07/2021 Last Assessment & Plan: Assessment: Mg 1.6 PLAN: Continue MgOxide 400mg po BID Hypokalemia 10/28/2018 10/29/2018 Last Assessment & Plan: Assessment: K 3.5 Mg 1.5 Had po supplements in ED PLAN: KCl in IVFs Recheck K and Mg levels in AM Weight loss, unintentional 10/28/201810/31 Last Assessment & Plan: Assessment: Possibly related to uncontrolled DM PLAN: Treatment as above Should have routine health care surveillance - Mammogram; Colonoscopy (colon polyp 11/2012) Gastroparesis due to DM 09/17/2012 10/30/19 19 Pelvic pain in female 07/29/2012 10/29/2018 Abdominal pain, other specified site 07/29/2012 10/29/2018 Vertigo of central origin 04/24/20122018 Peripheral vertigo 04/24/2012 10/29/2018 Headache(784.0) 04/09/2012 10/29/2018 Biliary colic 01/24/2012 11/19/2012 Diabetes mellitus type II 10/15/20112018 Genital herpes 10/28/2009 10/29/2018 Burn erythema of hand 01/12/2009 10/29/2018 Migraine without aura 08/19/2008 10/31/2018 Last Assessment & Plan: Assessment: Patient reports migraine headaches at least twice a week Neurology at 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 Patient has diabetes since the age of 53. Hypomagnesemia 10/30/2018 03/07/2021 Last Assessment & Plan: Assessment: Mg 1.6 PLAN: Continue MgOxide 400mg po BID Hypokalemia 10/28/2018 10/29/2018 Last Assessment & Plan: Assessment: K 3.5 Mg 1.5 Had po supplements in ED PLAN: KCl in IVFs Recheck K and Mg levels in AM Weight loss, unintentional 10/28/201810/31 Last Assessment & Plan: Assessment: Possibly related to uncontrolled DM PLAN: Treatment as above Should have routine health care surveillance - Mammogram; Colonoscopy (colon polyp 11/2012) Gastroparesis due to DM 09/17/2012 10/30/19 19 Pelvic pain in female 07/29/2012 10/29/2018 Abdominal pain, other specified site 07/29/2012 10/29/2018 Vertigo of central origin 04/24/20122018 Peripheral vertigo 04/24/2012 10/29/2018 Headache(784.0) 04/09/2012 10/29/2018 Biliary colic 01/24/2012 11/19/2012 Diabetes mellitus type II 10/15/20112018 Genital herpes 10/28/2009 10/29/2018 Burn erythema of hand 01/12/2009 10/29/2018 Migraine without aura 08/19/2008 10/31/2018 Last Assessment & Plan: Assessment: Patient reports migraine headaches at least twice a week Neurology at 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 Patient has diabetes since the age of 53. Hypomagnesemia 10/30/2018 03/07/2021 Last Assessment & Plan: Assessment: Mg 1.6 PLAN: Continue MgOxide 400mg po BID Hypokalemia 10/28/2018 10/29/2018 Last Assessment & Plan: Assessment: K 3.5 Mg 1.5 Had po supplements in ED PLAN: KCl in IVFs Recheck K and Mg levels in AM Weight loss, unintentional 10/28/201810/31 Last Assessment & Plan: Assessment: Possibly related to uncontrolled DM PLAN: Treatment as above Should have routine health care surveillance - Mammogram; Colonoscopy (colon polyp 11/2012) Gastroparesis due to DM 09/17/2012 10/30/19 19 Pelvic pain in female 07/29/2012 10/29/2018 Abdominal pain, other specified site 07/29/2012 10/29/2018 Vertigo of central origin 04/24/20122018 Peripheral vertigo 04/24/2012 10/29/2018 Headache(784.0) 04/09/2012 10/29/2018 Biliary colic 01/24/2012 11/19/2012 Diabetes mellitus type II 10/15/20112018 Genital herpes 10/28/2009 10/29/2018 Burn erythema of hand 01/12/2009 10/29/2018 Migraine without aura 08/19/2008 10/31/2018 Last Assessment & Plan: Assessment: Patient reports migraine headaches at least twice a week Neurology at 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 Patient has diabetes since the age of 53. Hypomagnesemia 10/30/2018 03/07/2021 Last Assessment & Plan: Assessment: Mg 1.6 PLAN: Continue MgOxide 400mg po BID Hypokalemia 10/28/2018 10/29/2018 Last Assessment & Plan: Assessment: K 3.5 Mg 1.5 Had po supplements in ED PLAN: KCl in IVFs Recheck K and Mg levels in AM Weight loss, unintentional 10/28/201810/31 Last Assessment & Plan: Assessment: Possibly related to uncontrolled DM PLAN: Treatment as above Should have routine health care surveillance - Mammogram; Colonoscopy (colon polyp 11/2012) Gastroparesis due to DM 09/17/2012 10/30/19 19 Pelvic pain in female 07/29/2012 10/29/2018 Abdominal pain, other specified site 07/29/2012 10/29/2018 Vertigo of central origin 04/24/20122018 Peripheral vertigo 04/24/2012 10/29/2018 Headache(784.0) 04/09/2012 10/29/2018 Biliary colic 01/24/2012 11/19/2012 Diabetes mellitus type II 10/15/20112018 Genital herpes 10/28/2009 10/29/2018 Burn erythema of hand 01/12/2009 10/29/2018 Migraine without aura 08/19/2008 10/31/2018 Last Assessment & Plan: Assessment: Patient reports migraine headaches at least twice a week Neurology at 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 Patient has diabetes since the age of 53. Hypomagnesemia 10/30/2018 03/07/2021 Last Assessment & Plan: Assessment: Mg 1.6 PLAN: Continue MgOxide 400mg po BID Hypokalemia 10/28/2018 10/29/2018 Last Assessment & Plan: Assessment: K 3.5 Mg 1.5 Had po supplements in ED PLAN: KCl in IVFs Recheck K and Mg levels in AM Weight loss, unintentional 10/28/201810/31 Last Assessment & Plan: Assessment: Possibly related to uncontrolled DM PLAN: Treatment as above Should have routine health care surveillance - Mammogram; Colonoscopy (colon polyp 11/2012) Gastroparesis due to DM 09/17/2012 10/30/19 19 Pelvic pain in female 07/29/2012 10/29/2018 Abdominal pain, other specified site 07/29/2012 10/29/2018 Vertigo of central origin 04/24/20122018 Peripheral vertigo 04/24/2012 10/29/2018 Headache(784.0) 04/09/2012 10/29/2018 Biliary colic 01/24/2012 11/19/2012 Diabetes mellitus type II 10/15/20112018 Genital herpes 10/28/2009 10/29/2018 Burn erythema of hand 01/12/2009 10/29/2018 Migraine without aura 08/19/2008 10/31/2018 Last Assessment & Plan: Assessment: Patient reports migraine headaches at least twice a week Neurology at 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 Patient has diabetes since the age of 53. Hypomagnesemia 10/30/2018 03/07/2021 Last Assessment & Plan: Assessment: Mg 1.6 PLAN: Continue MgOxide 400mg po BID Hypokalemia 10/28/2018 10/29/2018 Last Assessment & Plan: Assessment: K 3.5 Mg 1.5 Had po supplements in ED PLAN: KCl in IVFs Recheck K and Mg levels in AM Weight loss, unintentional 10/28/201810/31 Last Assessment & Plan: Assessment: Possibly related to uncontrolled DM PLAN: Treatment as above Should have routine health care surveillance - Mammogram; Colonoscopy (colon polyp 11/2012) Gastroparesis due to DM 09/17/2012 10/30/19 19 Pelvic pain in female 07/29/2012 10/29/2018 Abdominal pain, other specified site 07/29/2012 10/29/2018 Vertigo of central origin 04/24/20122018 Peripheral vertigo 04/24/2012 10/29/2018 Headache(784.0) 04/09/2012 10/29/2018 Biliary colic 01/24/2012 11/19/2012 Diabetes mellitus type II 10/15/20112018 Genital herpes 10/28/2009 10/29/2018 Burn erythema of hand 01/12/2009 10/29/2018 Migraine without aura 08/19/2008 10/31/2018 Last Assessment & Plan: Assessment: Patient reports migraine headaches at least twice a week Neurology at 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 Patient has diabetes since the age of 53. Hypomagnesemia 10/30/2018 03/07/2021 Last Assessment & Plan: Assessment: Mg 1.6 PLAN: Continue MgOxide 400mg po BID Hypokalemia 10/28/2018 10/29/2018 Last Assessment & Plan: Assessment: K 3.5 Mg 1.5 Had po supplements in ED PLAN: KCl in IVFs Recheck K and Mg levels in AM Weight loss, unintentional 10/28/201810/31 Last Assessment & Plan: Assessment: Possibly related to uncontrolled DM PLAN: Treatment as above Should have routine health care surveillance - Mammogram; Colonoscopy (colon polyp 11/2012) Gastroparesis due to DM 09/17/2012 10/30/19 19 Pelvic pain in female 07/29/2012 10/29/2018 Abdominal pain, other specified site 07/29/2012 10/29/2018 Vertigo of central origin 04/24/20122018 Peripheral vertigo 04/24/2012 10/29/2018 Headache(784.0) 04/09/2012 10/29/2018 Biliary colic 01/24/2012 11/19/2012 Diabetes mellitus type II 10/15/20112018 Genital herpes 10/28/2009 10/29/2018 Burn erythema of hand 01/12/2009 10/29/2018 Migraine without aura 08/19/2008 10/31/2018 Last Assessment & Plan: Assessment: Patient reports migraine headaches at least twice a week Neurology at 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 Patient has diabetes since the age of 53. Hypomagnesemia 10/30/2018 03/07/2021 Last Assessment & Plan: Assessment: Mg 1.6 PLAN: Continue MgOxide 400mg po BID Hypokalemia 10/28/2018 10/29/2018 Last Assessment & Plan: Assessment: K 3.5 Mg 1.5 Had po supplements in ED PLAN: KCl in IVFs Recheck K and Mg levels in AM Weight loss, unintentional 10/28/201810/31 Last Assessment & Plan: Assessment: Possibly related to uncontrolled DM PLAN: Treatment as above Should have routine health care surveillance - Mammogram; Colonoscopy (colon polyp 11/2012) Gastroparesis due to DM 09/17/2012 10/30/19 19 Pelvic pain in female 07/29/2012 10/29/2018 Abdominal pain, other specified site 07/29/2012 10/29/2018 Vertigo of central origin 04/24/20122018 Peripheral vertigo 04/24/2012 10/29/2018 Headache(784.0) 04/09/2012 10/29/2018 Biliary colic 01/24/2012 11/19/2012 Diabetes mellitus type II 10/15/20112018 Genital herpes 10/28/2009 10/29/2018 Burn erythema of hand 01/12/2009 10/29/2018 Migraine without aura 08/19/2008 10/31/2018 Last Assessment & Plan: Assessment: Patient reports migraine headaches at least twice a week Neurology at 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 Patient has diabetes since the age of 53. Hypomagnesemia 10/30/2018 03/07/2021 Last Assessment & Plan: Assessment: Mg 1.6 PLAN: Continue MgOxide 400mg po BID Hypokalemia 10/28/2018 10/29/2018 Last Assessment & Plan: Assessment: K 3.5 Mg 1.5 Had po supplements in ED PLAN: KCl in IVFs Recheck K and Mg levels in AM Weight loss, unintentional 10/28/201810/31 Last Assessment & Plan: Assessment: Possibly related to uncontrolled DM PLAN: Treatment as above Should have routine health care surveillance - Mammogram; Colonoscopy (colon polyp 11/2012) Gastroparesis due to DM 09/17/2012 10/30/19 19 Pelvic pain in female 07/29/2012 10/29/2018 Abdominal pain, other specified site 07/29/2012 10/29/2018 Vertigo of central origin 04/24/20122018 Peripheral vertigo 04/24/2012 10/29/2018 Headache(784.0) 04/09/2012 10/29/2018 Biliary colic 01/24/2012 11/19/2012 Diabetes mellitus type II 10/15/20112018 Genital herpes 10/28/2009 10/29/2018 Burn erythema of hand 01/12/2009 10/29/2018 Migraine without aura 08/19/2008 10/31/2018 Last Assessment & Plan: Assessment: Patient reports migraine headaches at least twice a week Neurology at 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 Patient has diabetes since the age of 53. Hypomagnesemia 10/30/2018 03/07/2021 Last Assessment & Plan: Assessment: Mg 1.6 PLAN: Continue MgOxide 400mg po BID Hypokalemia 10/28/2018 10/29/2018 Last Assessment & Plan: Assessment: K 3.5 Mg 1.5 Had po supplements in ED PLAN: KCl in IVFs Recheck K and Mg levels in AM Weight loss, unintentional 10/28/201810/31 Last Assessment & Plan: Assessment: Possibly related to uncontrolled DM PLAN: Treatment as above Should have routine health care surveillance - Mammogram; Colonoscopy (colon polyp 11/2012) Gastroparesis due to DM 09/17/2012 10/30/19 19 Pelvic pain in female 07/29/2012 10/29/2018 Abdominal pain, other specified site 07/29/2012 10/29/2018 Vertigo of central origin 04/24/20122018 Peripheral vertigo 04/24/2012 10/29/2018 Headache(784.0) 04/09/2012 10/29/2018 Biliary colic 01/24/2012 11/19/2012 Diabetes mellitus type II 10/15/20112018 Genital herpes 10/28/2009 10/29/2018 Burn erythema of hand 01/12/2009 10/29/2018 Migraine without aura 08/19/2008 10/31/2018 Last Assessment & Plan: Assessment: Patient reports migraine headaches at least twice a week Neurology at 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 Patient has diabetes since the age of 53. Hypomagnesemia 10/30/2018 03/07/2021 Last Assessment & Plan: Assessment: Mg 1.6 PLAN: Continue MgOxide 400mg po BID Hypokalemia 10/28/2018 10/29/2018 Last Assessment & Plan: Assessment: K 3.5 Mg 1.5 Had po supplements in ED PLAN: KCl in IVFs Recheck K and Mg levels in AM Weight loss, unintentional 10/28/201810/31 Last Assessment & Plan: Assessment: Possibly related to uncontrolled DM PLAN: Treatment as above Should have routine health care surveillance - Mammogram; Colonoscopy (colon polyp 11/2012) Gastroparesis due to DM 09/17/2012 10/30/19 19 Pelvic pain in female 07/29/2012 10/29/2018 Abdominal pain, other specified site 07/29/2012 10/29/2018 Vertigo of central origin 04/24/20122018 Peripheral vertigo 04/24/2012 10/29/2018 Headache(784.0) 04/09/2012 10/29/2018 Biliary colic 01/24/2012 11/19/2012 Diabetes mellitus type II 10/15/20112018 Genital herpes 10/28/2009 10/29/2018 Burn erythema of hand 01/12/2009 10/29/2018 Migraine without aura 08/19/2008 10/31/2018 Last Assessment & Plan: Assessment: Patient reports migraine headaches at least twice a week Neurology at 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 Patient has diabetes since the age of 53. Hypomagnesemia 10/30/2018 03/07/2021 Last Assessment & Plan: Assessment: Mg 1.6 PLAN: Continue MgOxide 400mg po BID Hypokalemia 10/28/2018 10/29/2018 Last Assessment & Plan: Assessment: K 3.5 Mg 1.5 Had po supplements in ED PLAN: KCl in IVFs Recheck K and Mg levels in AM Weight loss, unintentional 10/28/201810/31 Last Assessment & Plan: Assessment: Possibly related to uncontrolled DM PLAN: Treatment as above Should have routine health care surveillance - Mammogram; Colonoscopy (colon polyp 11/2012) Gastroparesis due to DM 09/17/2012 10/30/19 19 Pelvic pain in female 07/29/2012 10/29/2018 Abdominal pain, other specified site 07/29/2012 10/29/2018 Vertigo of central origin 04/24/20122018 Peripheral vertigo 04/24/2012 10/29/2018 Headache(784.0) 04/09/2012 10/29/2018 Biliary colic 01/24/2012 11/19/2012 Diabetes mellitus type II 10/15/20112018 Genital herpes 10/28/2009 10/29/2018 Burn erythema of hand 01/12/2009 10/29/2018 Migraine without aura 08/19/2008 10/31/2018 Last Assessment & Plan: Assessment: Patient reports migraine headaches at least twice a week Neurology at 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 Patient has diabetes since the age of 53. Hypomagnesemia 10/30/2018 03/07/2021 Last Assessment & Plan: Assessment: Mg 1.6 PLAN: Continue MgOxide 400mg po BID Hypokalemia 10/28/2018 10/29/2018 Last Assessment & Plan: Assessment: K 3.5 Mg 1.5 Had po supplements in ED PLAN: KCl in IVFs Recheck K and Mg levels in AM Weight loss, unintentional 10/28/201810/31 Last Assessment & Plan: Assessment: Possibly related to uncontrolled DM PLAN: Treatment as above Should have routine health care surveillance - Mammogram; Colonoscopy (colon polyp 11/2012) Gastroparesis due to DM 09/17/2012 10/30/19 Pelvic pain in female 07/29/2012 10/29/2018 Abdominal pain, other specified site 07/29/2012 10/29/2018 Vertigo of central origin 04/24/20122018 Peripheral vertigo 04/24/2012 10/29/2018 Headache(784.0) 04/09/2012 10/29/2018 Biliary colic 01/24/2012 11/19/2012 Diabetes mellitus type II 10/15/20112018 Genital herpes 10/28/2009 10/29/2018 Burn erythema of hand 01/12/2009 10/29/2018 Migraine without aura 08/19/2008 10/31/2018 Last Assessment & Plan: Assessment: Patient reports migraine headaches at least twice a week Neurology at 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 Patient has diabetes since the age of 53. Hypomagnesemia 10/30/2018 03/07/2021 Last Assessment & Plan: Assessment: Mg 1.6 PLAN: Continue MgOxide 400mg po BID Hypokalemia 10/28/2018 10/29/2018 Last Assessment & Plan: Assessment: K 3.5 Mg 1.5 Had po supplements in ED PLAN: KCl in IVFs Recheck K and Mg levels in AM Weight loss, unintentional 10/28/201810/31 Last Assessment & Plan: Assessment: Possibly related to uncontrolled DM PLAN: Treatment as above Should have routine health care surveillance - Mammogram; Colonoscopy (colon polyp 11/2012) Gastroparesis due to DM 09/17/2012 10/30/19 19 Pelvic pain in female 07/29/2012 10/29/2018 Abdominal pain, other specified site 07/29/2012 10/29/2018 Vertigo of central origin 04/24/20122018 Peripheral vertigo 04/24/2012 10/29/2018 Headache(784.0) 04/09/2012 10/29/2018 Biliary colic 01/24/2012 11/19/2012 Diabetes mellitus type II 10/15/20112018 Genital herpes 10/28/2009 10/29/2018 Burn erythema of hand 01/12/2009 10/29/2018 Migraine without aura 08/19/2008 10/31/2018 Last Assessment & Plan: Assessment: Patient reports migraine headaches at least twice a week Neurology at 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 Patient has diabetes since the age of 53. Hypomagnesemia 10/30/2018 03/07/2021 Last Assessment & Plan: Assessment: Mg 1.6 PLAN: Continue MgOxide 400mg po BID Hypokalemia 10/28/2018 10/29/2018 Last Assessment & Plan: Assessment: K 3.5 Mg 1.5 Had po supplements in ED PLAN: KCl in IVFs Recheck K and Mg levels in AM Weight loss, unintentional 10/28/201810/31 Last Assessment & Plan: Assessment: Possibly related to uncontrolled DM PLAN: Treatment as above Should have routine health care surveillance - Mammogram; Colonoscopy (colon polyp 11/2012) Gastroparesis due to DM 09/17/2012 10/30/19 19 Pelvic pain in female 07/29/2012 10/29/2018 Abdominal pain, other specified site 07/29/2012 10/29/2018 Vertigo of central origin 04/24/20122018 Peripheral vertigo 04/24/2012 10/29/2018 Headache(784.0) 04/09/2012 10/29/2018 Biliary colic 01/24/2012 11/19/2012 Diabetes mellitus type II 10/15/20112018 Genital herpes 10/28/2009 10/29/2018 Burn erythema of hand 01/12/2009 10/29/2018 Migraine without aura 08/19/2008 10/31/2018 Last Assessment & Plan: Assessment: Patient reports migraine headaches at least twice a week Neurology at 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 Patient has diabetes since the age of 53. Hypomagnesemia 10/30/2018 03/07/2021 Last Assessment & Plan: Assessment: Mg 1.6 PLAN: Continue MgOxide 400mg po BID Hypokalemia 10/28/2018 10/29/2018 Last Assessment & Plan: Assessment: K 3.5 Mg 1.5 Had po supplements in ED PLAN: KCl in IVFs Recheck K and Mg levels in AM Weight loss, unintentional 10/28/201810/31 Last Assessment & Plan: Assessment: Possibly related to uncontrolled DM PLAN: Treatment as above Should have routine health care surveillance - Mammogram; Colonoscopy (colon polyp 11/2012) Gastroparesis due to DM 09/17/2012 10/30/19 19 Pelvic pain in female 07/29/2012 10/29/2018 Abdominal pain, other specified site 07/29/2012 10/29/2018 Vertigo of central origin 04/24/20122018 Peripheral vertigo 04/24/2012 10/29/2018 Headache(784.0) 04/09/2012 10/29/2018 Biliary colic 01/24/2012 11/19/2012 Diabetes mellitus type II 10/15/20112018 Genital herpes 10/28/2009 10/29/2018 Burn erythema of hand 01/12/2009 10/29/2018 Migraine without aura 08/19/2008 10/31/2018 Last Assessment & Plan: Assessment: Patient reports migraine headaches at least twice a week Neurology at 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 Patient has diabetes since the age of 53. Hypomagnesemia 10/30/2018 03/07/2021 Last Assessment & Plan: Assessment: Mg 1.6 PLAN: Continue MgOxide 400mg po BID Hypokalemia 10/28/2018 10/29/2018 Last Assessment & Plan: Assessment: K 3.5 Mg 1.5 Had po supplements in ED PLAN: KCl in IVFs Recheck K and Mg levels in AM Weight loss, unintentional 10/28/201810/31 Last Assessment & Plan: Assessment: Possibly related to uncontrolled DM PLAN: Treatment as above Should have routine health care surveillance - Mammogram; Colonoscopy (colon polyp 11/2012) Gastroparesis due to DM 09/17/2012 10/30/19 19 Pelvic pain in female 07/29/2012 10/29/2018 Abdominal pain, other specified site 07/29/2012 10/29/2018 Vertigo of central origin 04/24/20122018 Peripheral vertigo 04/24/2012 10/29/2018 Headache(784.0) 04/09/2012 10/29/2018 Biliary colic 01/24/2012 11/19/2012 Diabetes mellitus type II 10/15/20112018 Genital herpes 10/28/2009 10/29/2018 Burn erythema of hand 01/12/2009 10/29/2018 Migraine without aura 08/19/2008 10/31/2018 Last Assessment & Plan: Assessment: Patient reports migraine headaches at least twice a week Neurology at 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 Patient has diabetes since the age of 53. Hypomagnesemia 10/30/2018 03/07/2021 Last Assessment & Plan: Assessment: Mg 1.6 PLAN: Continue MgOxide 400mg po BID Hypokalemia 10/28/2018 10/29/2018 Last Assessment & Plan: Assessment: K 3.5 Mg 1.5 Had po supplements in ED PLAN: KCl in IVFs Recheck K and Mg levels in AM Weight loss, unintentional 10/28/201810/31 Last Assessment & Plan: Assessment: Possibly related to uncontrolled DM PLAN: Treatment as above Should have routine health care surveillance - Mammogram; Colonoscopy (colon polyp 11/2012) Gastroparesis due to DM 09/17/2012 10/30/19 19 Pelvic pain in female 07/29/2012 10/29/2018 Abdominal pain, other specified site 07/29/2012 10/29/2018 Vertigo of central origin 04/24/20122018 Peripheral vertigo 04/24/2012 10/29/2018 Headache(784.0) 04/09/2012 10/29/2018 Biliary colic 01/24/2012 11/19/2012 Diabetes mellitus type II 10/15/20112018 Genital herpes 10/28/2009 10/29/2018 Burn erythema of hand 01/12/2009 10/29/2018 Migraine without aura 08/19/2008 10/31/2018 Last Assessment & Plan: Assessment: Patient reports migraine headaches at least twice a week Neurology at 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 Patient has diabetes since the age of 53. Hypomagnesemia 10/30/2018 03/07/2021 Last Assessment & Plan: Assessment: Mg 1.6 PLAN: Continue MgOxide 400mg po BID Hypokalemia 10/28/2018 10/29/2018 Last Assessment & Plan: Assessment: K 3.5 Mg 1.5 Had po supplements in ED PLAN: KCl in IVFs Recheck K and Mg levels in AM Weight loss, unintentional 10/28/201810/31 Last Assessment & Plan: Assessment: Possibly related to uncontrolled DM PLAN: Treatment as above Should have routine health care surveillance - Mammogram; Colonoscopy (colon polyp 11/2012) Gastroparesis due to DM 09/17/2012 10/30/19 19 Pelvic pain in female 07/29/2012 10/29/2018 Abdominal pain, other specified site 07/29/2012 10/29/2018 Vertigo of central origin 04/24/20122018 Peripheral vertigo 04/24/2012 10/29/2018 Headache(784.0) 04/09/2012 10/29/2018 Biliary colic 01/24/2012 11/19/2012 Diabetes mellitus type II 10/15/20112018 Genital herpes 10/28/2009 10/29/2018 Burn erythema of hand 01/12/2009 10/29/2018 Migraine without aura 08/19/2008 10/31/2018 Last Assessment & Plan: Assessment: Patient reports migraine headaches at least twice a week Neurology at 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 Patient has diabetes since the age of 53. Hypomagnesemia 10/30/2018 03/07/2021 Last Assessment & Plan: Assessment: Mg 1.6 PLAN: Continue MgOxide 400mg po BID Hypokalemia 10/28/2018 10/29/2018 Last Assessment & Plan: Assessment: K 3.5 Mg 1.5 Had po supplements in ED PLAN: KCl in IVFs Recheck K and Mg levels in AM Weight loss, unintentional 10/28/201810/31 Last Assessment & Plan: Assessment: Possibly related to uncontrolled DM PLAN: Treatment as above Should have routine health care surveillance - Mammogram; Colonoscopy (colon polyp 11/2012) Gastroparesis due to DM 09/17/2012 10/30/19 19 Pelvic pain in female 07/29/2012 10/29/2018 Abdominal pain, other specified site 07/29/2012 10/29/2018 Vertigo of central origin 04/24/20122018 Peripheral vertigo 04/24/2012 10/29/2018 Headache(784.0) 04/09/2012 10/29/2018 Biliary colic 01/24/2012 11/19/2012 Diabetes mellitus type II 10/15/20112018 Genital herpes 10/28/2009 10/29/2018 Burn erythema of hand 01/12/2009 10/29/2018 Migraine without aura 08/19/2008 10/31/2018 Last Assessment & Plan: Assessment: Patient reports migraine headaches at least twice a week Neurology at 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 Patient has diabetes since the age of 53. Hypomagnesemia 10/30/2018 03/07/2021 Last Assessment & Plan: Assessment: Mg 1.6 PLAN: Continue MgOxide 400mg po BID Hypokalemia 10/28/2018 10/29/2018 Last Assessment & Plan: Assessment: K 3.5 Mg 1.5 Had po supplements in ED PLAN: KCl in IVFs Recheck K and Mg levels in AM Weight loss, unintentional 10/28/201810/31 Last Assessment & Plan: Assessment: Possibly related to uncontrolled DM PLAN: Treatment as above Should have routine health care surveillance - Mammogram; Colonoscopy (colon polyp 11/2012) Gastroparesis due to DM 09/17/2012 10/30/19 19 Pelvic pain in female 07/29/2012 10/29/2018 Abdominal pain, other specified site 07/29/2012 10/29/2018 Vertigo of central origin 04/24/20122018 Peripheral vertigo 04/24/2012 10/29/2018 Headache(784.0) 04/09/2012 10/29/2018 Biliary colic 01/24/2012 11/19/2012 Diabetes mellitus type II 10/15/20112018 Genital herpes 10/28/2009 10/29/2018 Burn erythema of hand 01/12/2009 10/29/2018 Migraine without aura 08/19/2008 10/31/2018 Last Assessment & Plan: Assessment: Patient reports migraine headaches at least twice a week Neurology at 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 Patient has diabetes since the age of 53. Hypomagnesemia 10/30/2018 03/07/2021 Last Assessment & Plan: Assessment: Mg 1.6 PLAN: Continue MgOxide 400mg po BID Hypokalemia 10/28/2018 10/29/2018 Last Assessment & Plan: Assessment: K 3.5 Mg 1.5 Had po supplements in ED PLAN: KCl in IVFs Recheck K and Mg levels in AM Weight loss, unintentional 10/28/201810/31 Last Assessment & Plan: Assessment: Possibly related to uncontrolled DM PLAN: Treatment as above Should have routine health care surveillance - Mammogram; Colonoscopy (colon polyp 11/2012) Gastroparesis due to DM 09/17/2012 10/30/19 19 Pelvic pain in female 07/29/2012 10/29/2018 Abdominal pain, other specified site 07/29/2012 10/29/2018 Vertigo of central origin 04/24/20122018 Peripheral vertigo 04/24/2012 10/29/2018 Headache(784.0) 04/09/2012 10/29/2018 Biliary colic 01/24/2012 11/19/2012 Diabetes mellitus type II 10/15/20112018 Genital herpes 10/28/2009 10/29/2018 Burn erythema of hand 01/12/2009 10/29/2018 Migraine without aura 08/19/2008 10/31/2018 Last Assessment & Plan: Assessment: Patient reports migraine headaches at least twice a week Neurology at 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 Patient has diabetes since the age of 53. Hypomagnesemia 10/30/2018 03/07/2021 Last Assessment & Plan: Assessment: Mg 1.6 PLAN: Continue MgOxide 400mg po BID Hypokalemia 10/28/2018 10/29/2018 Last Assessment & Plan: Assessment: K 3.5 Mg 1.5 Had po supplements in ED PLAN: KCl in IVFs Recheck K and Mg levels in AM Weight loss, unintentional 10/28/201810/31 Last Assessment & Plan: Assessment: Possibly related to uncontrolled DM PLAN: Treatment as above Should have routine health care surveillance - Mammogram; Colonoscopy (colon polyp 11/2012) Gastroparesis due to DM 09/17/2012 10/30/19 19 Pelvic pain in female 07/29/2012 10/29/2018 Abdominal pain, other specified site 07/29/2012 10/29/2018 Vertigo of central origin 04/24/20122018 Peripheral vertigo 04/24/2012 10/29/2018 Headache(784.0) 04/09/2012 10/29/2018 Biliary colic 01/24/2012 11/19/2012 Diabetes mellitus type II 10/15/20112018 Genital herpes 10/28/2009 10/29/2018 Burn erythema of hand 01/12/2009 10/29/2018 Migraine without aura 08/19/2008 10/31/2018 Last Assessment & Plan: Assessment: Patient reports migraine headaches at least twice a week Neurology at 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 Patient has diabetes since the age of 53. Hypomagnesemia 10/30/2018 03/07/2021 Last Assessment & Plan: Assessment: Mg 1.6 PLAN: Continue MgOxide 400mg po BID Hypokalemia 10/28/2018 10/29/2018 Last Assessment & Plan: Assessment: K 3.5 Mg 1.5 Had po supplements in ED PLAN: KCl in IVFs Recheck K and Mg levels in AM Weight loss, unintentional 10/28/201810/31 Last Assessment & Plan: Assessment: Possibly related to uncontrolled DM PLAN: Treatment as above Should have routine health care surveillance - Mammogram; Colonoscopy (colon polyp 11/2012) Gastroparesis due to DM 09/17/2012 10/30/19 19 Pelvic pain in female 07/29/2012 10/29/2018 Abdominal pain, other specified site 07/29/2012 10/29/2018 Vertigo of central origin 04/24/20122018 Peripheral vertigo 04/24/2012 10/29/2018 Headache(784.0) 04/09/2012 10/29/2018 Biliary colic 01/24/2012 11/19/2012 Diabetes mellitus type II 10/15/20112018 Genital herpes 10/28/2009 10/29/2018 Burn erythema of hand 01/12/2009 10/29/2018 Migraine without aura 08/19/2008 10/31/2018 Last Assessment & Plan: Assessment: Patient reports migraine headaches at least twice a week Neurology at 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 Patient has diabetes since the age of 53. Hypomagnesemia 10/30/2018 03/07/2021 Last Assessment & Plan: Assessment: Mg 1.6 PLAN: Continue MgOxide 400mg po BID Hypokalemia 10/28/2018 10/29/2018 Last Assessment & Plan: Assessment: K 3.5 Mg 1.5 Had po supplements in ED PLAN: KCl in IVFs Recheck K and Mg levels in AM Weight loss, unintentional 10/28/201810/31 Last Assessment & Plan: Assessment: Possibly related to uncontrolled DM PLAN: Treatment as above Should have routine health care surveillance - Mammogram; Colonoscopy (colon polyp 11/2012) Gastroparesis due to DM 09/17/2012 10/30/19 Pelvic pain in female 07/29/2012 10/29/2018 Abdominal pain, other specified site 07/29/2012 10/29/2018 Vertigo of central origin 04/24/20122018 Peripheral vertigo 04/24/2012 10/29/2018 Headache(784.0) 04/09/2012 10/29/2018 Biliary colic 01/24/2012 11/19/2012 Diabetes mellitus type II 10/15/20112018 Genital herpes 10/28/2009 10/29/2018 Burn erythema of hand 01/12/2009 10/29/2018 Migraine without aura 08/19/2008 10/31/2018 Last Assessment & Plan: Assessment: Patient reports migraine headaches at least twice a week Neurology at 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 Patient has diabetes since the age of 53. Hypomagnesemia 10/30/2018 03/07/2021 Last Assessment & Plan: Assessment: Mg 1.6 PLAN: Continue MgOxide 400mg po BID Hypokalemia 10/28/2018 10/29/2018 Last Assessment & Plan: Assessment: K 3.5 Mg 1.5 Had po supplements in ED PLAN: KCl in IVFs Recheck K and Mg levels in AM Weight loss, unintentional 10/28/201810/31 Last Assessment & Plan: Assessment: Possibly related to uncontrolled DM PLAN: Treatment as above Should have routine health care surveillance - Mammogram; Colonoscopy (colon polyp 11/2012) Gastroparesis due to DM 09/17/2012 10/30/19 Pelvic pain in female 07/29/2012 10/29/2018 Abdominal pain, other specified site 07/29/2012 10/29/2018 Vertigo of central origin 04/24/20122018 Peripheral vertigo 04/24/2012 10/29/2018 Headache(784.0) 04/09/2012 10/29/2018 Biliary colic 01/24/2012 11/19/2012 Diabetes mellitus type II 10/15/20112018 Genital herpes 10/28/2009 10/29/2018 Burn erythema of hand 01/12/2009 10/29/2018 Migraine without aura 08/19/2008 10/31/2018 Last Assessment & Plan: Assessment: Patient reports migraine headaches at least twice a week Neurology at 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 Patient has diabetes since the age of 53. Hypomagnesemia 10/30/2018 03/07/2021 Last Assessment & Plan: Assessment: Mg 1.6 PLAN: Continue MgOxide 400mg po BID Hypokalemia 10/28/2018 10/29/2018 Last Assessment & Plan: Assessment: K 3.5 Mg 1.5 Had po supplements in ED PLAN: KCl in IVFs Recheck K and Mg levels in AM Weight loss, unintentional 10/28/201810/31 Last Assessment & Plan: Assessment: Possibly related to uncontrolled DM PLAN: Treatment as above Should have routine health care surveillance - Mammogram; Colonoscopy (colon polyp 11/2012) Gastroparesis due to DM 09/17/2012 10/30/19 19 Pelvic pain in female 07/29/2012 10/29/2018 Abdominal pain, other specified site 07/29/2012 10/29/2018 Vertigo of central origin 04/24/20122018 Peripheral vertigo 04/24/2012 10/29/2018 Headache(784.0) 04/09/2012 10/29/2018 Biliary colic 01/24/2012 11/19/2012 Diabetes mellitus type II 10/15/20112018 Genital herpes 10/28/2009 10/29/2018 Burn erythema of hand 01/12/2009 10/29/2018 Migraine without aura 08/19/2008 10/31/2018 Last Assessment & Plan: Assessment: Patient reports migraine headaches at least twice a week Neurology at 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 Patient has diabetes since the age of 53. Hypomagnesemia 10/30/2018 03/07/2021 Last Assessment & Plan: Assessment: Mg 1.6 PLAN: Continue MgOxide 400mg po BID Hypokalemia 10/28/2018 10/29/2018 Last Assessment & Plan: Assessment: K 3.5 Mg 1.5 Had po supplements in ED PLAN: KCl in IVFs Recheck K and Mg levels in AM Weight loss, unintentional 10/28/201810/31 Last Assessment & Plan: Assessment: Possibly related to uncontrolled DM PLAN: Treatment as above Should have routine health care surveillance - Mammogram; Colonoscopy (colon polyp 11/2012) Gastroparesis due to DM 09/17/2012 10/30/19 Pelvic pain in female 07/29/2012 10/29/2018 Abdominal pain, other specified site 07/29/2012 10/29/2018 Vertigo of central origin 04/24/20122018 Peripheral vertigo 04/24/2012 10/29/2018 Headache(784.0) 04/09/2012 10/29/2018 Biliary colic 01/24/2012 11/19/2012 Diabetes mellitus type II 10/15/20112018 Genital herpes 10/28/2009 10/29/2018 Burn erythema of hand 01/12/2009 10/29/2018 Migraine without aura 08/19/2008 10/31/2018 Last Assessment & Plan: Assessment: Patient reports migraine headaches at least twice a week Neurology at 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 Patient has diabetes since the age of 53. Hypomagnesemia 10/30/2018 03/07/2021 Last Assessment & Plan: Assessment: Mg 1.6 PLAN: Continue MgOxide 400mg po BID Hypokalemia 10/28/2018 10/29/2018 Last Assessment & Plan: Assessment: K 3.5 Mg 1.5 Had po supplements in ED PLAN: KCl in IVFs Recheck K and Mg levels in AM Weight loss, unintentional 10/28/2018 0 10/31/2018 Last Assessment & Plan: Assessment: Possibly related to uncontrolled DM PLAN: Treatment as above Should have routine health care surveillance - Mammogram; Colonoscopy (colon polyp 11/2012) Gastroparesis due to DM 09/17/201210/01 Pelvic pain in female 07/29/20122018 Abdominal pain, other specified site 07/29/2012 10/29/2018 Vertigo of central origin 04/24/2012 Peripheral vertigo 04/24/2012 9 Headache(784.0) 04/09/2012 10/29/2018 Biliary colic 01/24/2012 11/19/2012 Diabetes mellitus type II 10/15/2011 Genital herpes 10/28/2009 10/29/2018 Burn erythema of hand 01/12/20092018 Migraine without aura 08/19/20082018 Last Assessment & Plan: Assessment: Patient reports migraine headaches at least twice a week Neurology at 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 Patient has diabetes since the age of 53. Hypomagnesemia 10/30/2018 03/07/2021 Last Assessment & Plan: Assessment: Mg 1.6 PLAN: Continue MgOxide 400mg po BID Hypokalemia 10/28/2018 10/29/2018 Last Assessment & Plan: Assessment: K 3.5 Mg 1.5 Had po supplements in ED PLAN: KCl in IVFs Recheck K and Mg levels in AM Weight loss, unintentional 10/28/2018 0 10/31/2018 Last Assessment & Plan: Assessment: Possibly related to uncontrolled DM PLAN: Treatment as above Should have routine health care surveillance - Mammogram; Colonoscopy (colon polyp 11/2012) Gastroparesis due to DM 09/17/201210/01 Pelvic pain in female 07/29/20122018 Abdominal pain, other specified site 07/29/2012 10/29/2018 Vertigo of central origin 04/24/2012 Peripheral vertigo 04/24/2012 9 Headache(784.0) 04/09/2012 10/29/2018 Biliary colic 01/24/2012 11/19/2012 Diabetes mellitus type II 10/15/2011 Genital herpes 10/28/2009 10/29/2018 Burn erythema of hand 01/12/20092018 Migraine without aura 08/19/20082018 Last Assessment & Plan: Assessment: Patient reports migraine headaches at least twice a week Neurology at 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 Patient has diabetes since the age of 53. Hypomagnesemia 10/30/2018 03/07/2021 Last Assessment & Plan: Assessment: Mg 1.6 PLAN: Continue MgOxide 400mg po BID Hypokalemia 10/28/2018 10/29/2018 Last Assessment & Plan: Assessment: K 3.5 Mg 1.5 Had po supplements in ED PLAN: KCl in IVFs Recheck K and Mg levels in AM Weight loss, unintentional 10/28/2018 0 10/31/2018 Last Assessment & Plan: Assessment: Possibly related to uncontrolled DM PLAN: Treatment as above Should have routine health care surveillance - Mammogram; Colonoscopy (colon polyp 11/2012) Gastroparesis due to DM 09/17/201210/01 Pelvic pain in female 07/29/20122018 Abdominal pain, other specified site 07/29/2012 10/29/2018 Vertigo of central origin 04/24/2012 Peripheral vertigo 04/24/2012 9 Headache(784.0) 04/09/2012 10/29/2018 Biliary colic 01/24/2012 11/19/2012 Diabetes mellitus type II 10/15/2011 Genital herpes 10/28/2009 10/29/2018 Burn erythema of hand 01/12/20092018 Migraine without aura 08/19/20082018 Last Assessment & Plan: Assessment: Patient reports migraine headaches at least twice a week Neurology at 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 Patient has diabetes since the age of 53. Hypomagnesemia 10/30/2018 03/07/2021 Last Assessment & Plan: Assessment: Mg 1.6 PLAN: Continue MgOxide 400mg po BID Hypokalemia 10/28/2018 10/29/2018 Last Assessment & Plan: Assessment: K 3.5 Mg 1.5 Had po supplements in ED PLAN: KCl in IVFs Recheck K and Mg levels in AM Weight loss, unintentional 10/28/2018 0 10/31/2018 Last Assessment & Plan: Assessment: Possibly related to uncontrolled DM PLAN: Treatment as above Should have routine health care surveillance - Mammogram; Colonoscopy (colon polyp 11/2012) Gastroparesis due to DM 09/17/201210/01 Pelvic pain in female 07/29/20122018 Abdominal pain, other specified site 07/29/2012 10/29/2018 Vertigo of central origin 04/24/2012 Peripheral vertigo 04/24/2012 9 Headache(784.0) 04/09/2012 10/29/2018 Biliary colic 01/24/2012 11/19/2012 Diabetes mellitus type II 10/15/2011 Genital herpes 10/28/2009 10/29/2018 Burn erythema of hand 01/12/20092018 Migraine without aura 08/19/20082018 Last Assessment & Plan: Assessment: Patient reports migraine headaches at least twice a week Neurology at 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 Patient has diabetes since the age of 53. Hypomagnesemia 10/30/2018 03/07/2021 Last Assessment & Plan: Assessment: Mg 1.6 PLAN: Continue MgOxide 400mg po BID Hypokalemia 10/28/2018 10/29/2018 Last Assessment & Plan: Assessment: K 3.5 Mg 1.5 Had po supplements in ED PLAN: KCl in IVFs Recheck K and Mg levels in AM Weight loss, unintentional 10/28/2018 0 10/31/2018 Last Assessment & Plan: Assessment: Possibly related to uncontrolled DM PLAN: Treatment as above Should have routine health care surveillance - Mammogram; Colonoscopy (colon polyp 11/2012) Gastroparesis due to DM 09/17/201210/01 Pelvic pain in female 07/29/20122018 Abdominal pain, other specified site 07/29/2012 10/29/2018 Vertigo of central origin 04/24/2012 Peripheral vertigo 04/24/2012 9 Headache(784.0) 04/09/2012 10/29/2018 Biliary colic 01/24/2012 11/19/2012 Diabetes mellitus type II 10/15/2011 Genital herpes 10/28/2009 10/29/2018 Burn erythema of hand 01/12/20092018 Migraine without aura 08/19/20082018 Last Assessment & Plan: Assessment: Patient reports migraine headaches at least twice a week Neurology at 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 Patient has diabetes since the age of 53. Hypomagnesemia 10/30/2018 03/07/2021 Last Assessment & Plan: Assessment: Mg 1.6 PLAN: Continue MgOxide 400mg po BID Hypokalemia 10/28/2018 10/29/2018 Last Assessment & Plan: Assessment: K 3.5 Mg 1.5 Had po supplements in ED PLAN: KCl in IVFs Recheck K and Mg levels in AM Weight loss, unintentional 10/28/2018 0 10/31/2018 Last Assessment & Plan: Assessment: Possibly related to uncontrolled DM PLAN: Treatment as above Should have routine health care surveillance - Mammogram; Colonoscopy (colon polyp 11/2012) Gastroparesis due to DM 09/17/201210/01 Pelvic pain in female 07/29/20122018 Abdominal pain, other specified site 07/29/2012 10/29/2018 Vertigo of central origin 04/24/2012 Peripheral vertigo 04/24/2012 9 Headache(784.0) 04/09/2012 10/29/2018 Biliary colic 01/24/2012 11/19/2012 Diabetes mellitus type II 10/15/2011 Genital herpes 10/28/2009 10/29/2018 Burn erythema of hand 01/12/20092018 Migraine without aura 08/19/20082018 Last Assessment & Plan: Assessment: Patient reports migraine headaches at least twice a week Neurology at 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 Patient has diabetes since the age of 53. Hypomagnesemia 10/30/2018 03/07/2021 Last Assessment & Plan: Assessment: Mg 1.6 PLAN: Continue MgOxide 400mg po BID Hypokalemia 10/28/2018 10/29/2018 Last Assessment & Plan: Assessment: K 3.5 Mg 1.5 Had po supplements in ED PLAN: KCl in IVFs Recheck K and Mg levels in AM Weight loss, unintentional 10/28/2018 0 10/31/2018 Last Assessment & Plan: Assessment: Possibly related to uncontrolled DM PLAN: Treatment as above Should have routine health care surveillance - Mammogram; Colonoscopy (colon polyp 11/2012) Gastroparesis due to DM 09/17/201210/01 Pelvic pain in female 07/29/20122018 Abdominal pain, other specified site 07/29/2012 10/29/2018 Vertigo of central origin 04/24/2012 Peripheral vertigo 04/24/2012 9 Headache(784.0) 04/09/2012 10/29/2018 Biliary colic 01/24/2012 11/19/2012 Diabetes mellitus type II 10/15/2011 Genital herpes 10/28/2009 10/29/2018 Burn erythema of hand 01/12/20092018 Migraine without aura 08/19/20082018 Last Assessment & Plan: Assessment: Patient reports migraine headaches at least twice a week Neurology at 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 Patient has diabetes since the age of 53. Hypomagnesemia 10/30/2018 03/07/2021 Last Assessment & Plan: Assessment: Mg 1.6 PLAN: Continue MgOxide 400mg po BID Hypokalemia 10/28/2018 10/29/2018 Last Assessment & Plan: Assessment: K 3.5 Mg 1.5 Had po supplements in ED PLAN: KCl in IVFs Recheck K and Mg levels in AM Weight loss, unintentional 10/28/2018 0 10/31/2018 Last Assessment & Plan: Assessment: Possibly related to uncontrolled DM PLAN: Treatment as above Should have routine health care surveillance - Mammogram; Colonoscopy (colon polyp 11/2012) Gastroparesis due to DM 09/17/201210/01 Pelvic pain in female 07/29/20122018 Abdominal pain, other specified site 07/29/2012 10/29/2018 Vertigo of central origin 04/24/2012 Peripheral vertigo 04/24/2012 9 Headache(784.0) 04/09/2012 10/29/2018 Biliary colic 01/24/2012 11/19/2012 Diabetes mellitus type II 10/15/2011 Genital herpes 10/28/2009 10/29/2018 Burn erythema of hand 01/12/20092018 Migraine without aura 08/19/20082018 Last Assessment & Plan: Assessment: Patient reports migraine headaches at least twice a week Neurology at 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 Patient has diabetes since the age of 53. Hypomagnesemia 10/30/2018 03/07/2021 Last Assessment & Plan: Assessment: Mg 1.6 PLAN: Continue MgOxide 400mg po BID Hypokalemia 10/28/2018 10/29/2018 Last Assessment & Plan: Assessment: K 3.5 Mg 1.5 Had po supplements in ED PLAN: KCl in IVFs Recheck K and Mg levels in AM Weight loss, unintentional 10/28/2018 0 10/31/2018 Last Assessment & Plan: Assessment: Possibly related to uncontrolled DM PLAN: Treatment as above Should have routine health care surveillance - Mammogram; Colonoscopy (colon polyp 11/2012) Gastroparesis due to DM 09/17/201210/01 Pelvic pain in female 07/29/20122018 Abdominal pain, other specified site 07/29/2012 10/29/2018 Vertigo of central origin 04/24/2012 Peripheral vertigo 04/24/2012 9 Headache(784.0) 04/09/2012 10/29/2018 Biliary colic 01/24/2012 11/19/2012 Diabetes mellitus type II 10/15/2011 Genital herpes 10/28/2009 10/29/2018 Burn erythema of hand 01/12/20092018 Migraine without aura 08/19/20082018 Last Assessment & Plan: Assessment: Patient reports migraine headaches at least twice a week Neurology at 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 Patient has diabetes since the age of 53. Hypomagnesemia 10/30/2018 03/07/2021 Last Assessment & Plan: Assessment: Mg 1.6 PLAN: Continue MgOxide 400mg po BID Hypokalemia 10/28/2018 10/29/2018 Last Assessment & Plan: Assessment: K 3.5 Mg 1.5 Had po supplements in ED PLAN: KCl in IVFs Recheck K and Mg levels in AM Weight loss, unintentional 10/28/2018 0 10/31/2018 Last Assessment & Plan: Assessment: Possibly related to uncontrolled DM PLAN: Treatment as above Should have routine health care surveillance - Mammogram; Colonoscopy (colon polyp 11/2012) Gastroparesis due to DM 09/17/201210/01 Pelvic pain in female 07/29/20122018 Abdominal pain, other specified site 07/29/2012 10/29/2018 Vertigo of central origin 04/24/2012 Peripheral vertigo 04/24/2012 9 Headache(784.0) 04/09/2012 10/29/2018 Biliary colic 01/24/2012 11/19/2012 Diabetes mellitus type II 10/15/2011 Genital herpes 10/28/2009 10/29/2018 Burn erythema of hand 01/12/20092018 Migraine without aura 08/19/20082018 Last Assessment & Plan: Assessment: Patient reports migraine headaches at least twice a week Neurology at 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 Patient has diabetes since the age of 53. Hypomagnesemia 10/30/2018 03/07/2021 Last Assessment & Plan: Assessment: Mg 1.6 PLAN: Continue MgOxide 400mg po BID Hypokalemia 10/28/2018 10/29/2018 Last Assessment & Plan: Assessment: K 3.5 Mg 1.5 Had po supplements in ED PLAN: KCl in IVFs Recheck K and Mg levels in AM Weight loss, unintentional 10/28/2018 0 10/31/2018 Last Assessment & Plan: Assessment: Possibly related to uncontrolled DM PLAN: Treatment as above Should have routine health care surveillance - Mammogram; Colonoscopy (colon polyp 11/2012) Gastroparesis due to DM 09/17/201210/01 Pelvic pain in female 07/29/20122018 Abdominal pain, other specified site 07/29/2012 10/29/2018 Vertigo of central origin 04/24/2012 Peripheral vertigo 04/24/2012 9 Headache(784.0) 04/09/2012 10/29/2018 Biliary colic 01/24/2012 11/19/2012 Diabetes mellitus type II 10/15/2011 Genital herpes 10/28/2009 10/29/2018 Burn erythema of hand 01/12/20092018 Migraine without aura 08/19/20082018 Last Assessment & Plan: Assessment: Patient reports migraine headaches at least twice a week Neurology at 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 Patient has diabetes since the age of 53. Hypomagnesemia 10/30/2018 03/07/2021 Last Assessment & Plan: Assessment: Mg 1.6 PLAN: Continue MgOxide 400mg po BID Hypokalemia 10/28/2018 10/29/2018 Last Assessment & Plan: Assessment: K 3.5 Mg 1.5 Had po supplements in ED PLAN: KCl in IVFs Recheck K and Mg levels in AM Weight loss, unintentional 10/28/2018 0 10/31/2018 Last Assessment & Plan: Assessment: Possibly related to uncontrolled DM PLAN: Treatment as above Should have routine health care surveillance - Mammogram; Colonoscopy (colon polyp 11/2012) Gastroparesis due to DM 09/17/201210/01 Pelvic pain in female 07/29/20122018 Abdominal pain, other specified site 07/29/2012 10/29/2018 Vertigo of central origin 04/24/2012 Peripheral vertigo 04/24/2012 9 Headache(784.0) 04/09/2012 10/29/2018 Biliary colic 01/24/2012 11/19/2012 Diabetes mellitus type II 10/15/2011 Genital herpes 10/28/2009 10/29/2018 Burn erythema of hand 01/12/20092018 Migraine without aura 08/19/20082018 Last Assessment & Plan: Assessment: Patient reports migraine headaches at least twice a week Neurology at 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 Patient has diabetes since the age of 53. Hypomagnesemia 10/30/2018 03/07/2021 Last Assessment & Plan: Assessment: Mg 1.6 PLAN: Continue MgOxide 400mg po BID Hypokalemia 10/28/2018 10/29/2018 Last Assessment & Plan: Assessment: K 3.5 Mg 1.5 Had po supplements in ED PLAN: KCl in IVFs Recheck K and Mg levels in AM Weight loss, unintentional 10/28/2018 0 10/31/2018 Last Assessment & Plan: Assessment: Possibly related to uncontrolled DM PLAN: Treatment as above Should have routine health care surveillance - Mammogram; Colonoscopy (colon polyp 11/2012) Gastroparesis due to DM 09/17/201210/01 Pelvic pain in female 07/29/20122018 Abdominal pain, other specified site 07/29/2012 10/29/2018 Vertigo of central origin 04/24/2012 Peripheral vertigo 04/24/2012 9 Headache(784.0) 04/09/2012 10/29/2018 Biliary colic 01/24/2012 11/19/2012 Diabetes mellitus type II 10/15/2011 Genital herpes 10/28/2009 10/29/2018 Burn erythema of hand 01/12/20092018 Migraine without aura 08/19/20082018 Last Assessment & Plan: Assessment: Patient reports migraine headaches at least twice a week Neurology at 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 Patient has diabetes since the age of 53. Hypomagnesemia 10/30/2018 03/07/2021 Last Assessment & Plan: Assessment: Mg 1.6 PLAN: Continue MgOxide 400mg po BID Hypokalemia 10/28/2018 10/29/2018 Last Assessment & Plan: Assessment: K 3.5 Mg 1.5 Had po supplements in ED PLAN: KCl in IVFs Recheck K and Mg levels in AM Weight loss, unintentional 10/28/2018 0 10/31/2018 Last Assessment & Plan: Assessment: Possibly related to uncontrolled DM PLAN: Treatment as above Should have routine health care surveillance - Mammogram; Colonoscopy (colon polyp 11/2012) Gastroparesis due to DM 09/17/201210/01 Pelvic pain in female 07/29/20122018 Abdominal pain, other specified site 07/29/2012 10/29/2018 Vertigo of central origin 04/24/2012 Peripheral vertigo 04/24/2012 9 Headache(784.0) 04/09/2012 10/29/2018 Biliary colic 01/24/2012 11/19/2012 Diabetes mellitus type II 10/15/2011 Genital herpes 10/28/2009 10/29/2018 Burn erythema of hand 01/12/20092018 Migraine without aura 08/19/20082018 Last Assessment & Plan: Assessment: Patient reports migraine headaches at least twice a week Neurology at 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 Patient has diabetes since the age of 53. Hypomagnesemia 10/30/2018 03/07/2021 Last Assessment & Plan: Assessment: Mg 1.6 PLAN: Continue MgOxide 400mg po BID Hypokalemia 10/28/2018 10/29/2018 Last Assessment & Plan: Assessment: K 3.5 Mg 1.5 Had po supplements in ED PLAN: KCl in IVFs Recheck K and Mg levels in AM Weight loss, unintentional 10/28/2018 0 10/31/2018 Last Assessment & Plan: Assessment: Possibly related to uncontrolled DM PLAN: Treatment as above Should have routine health care surveillance - Mammogram; Colonoscopy (colon polyp 11/2012) Gastroparesis due to DM 09/17/201210/01 Pelvic pain in female 07/29/20122018 Abdominal pain, other specified site 07/29/2012 10/29/2018 Vertigo of central origin 04/24/2012 Peripheral vertigo 04/24/2012 9 Headache(784.0) 04/09/2012 10/29/2018 Biliary colic 01/24/2012 11/19/2012 Diabetes mellitus type II 10/15/2011 Genital herpes 10/28/2009 10/29/2018 Burn erythema of hand 01/12/20092018 Migraine without aura 08/19/20082018 Last Assessment & Plan: Assessment: Patient reports migraine headaches at least twice a week Neurology at 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 Patient has diabetes since the age of 53. Hypomagnesemia 10/30/2018 03/07/2021 Last Assessment & Plan: Assessment: Mg 1.6 PLAN: Continue MgOxide 400mg po BID Hypokalemia 10/28/2018 10/29/2018 Last Assessment & Plan: Assessment: K 3.5 Mg 1.5 Had po supplements in ED PLAN: KCl in IVFs Recheck K and Mg levels in AM Weight loss, unintentional 10/28/2018 0 10/31/2018 Last Assessment & Plan: Assessment: Possibly related to uncontrolled DM PLAN: Treatment as above Should have routine health care surveillance - Mammogram; Colonoscopy (colon polyp 11/2012) Gastroparesis due to DM 09/17/201210/01 Pelvic pain in female 07/29/20122018 Abdominal pain, other specified site 07/29/2012 10/29/2018 Vertigo of central origin 04/24/2012 Peripheral vertigo 04/24/2012 9 Headache(784.0) 04/09/2012 10/29/2018 Biliary colic 01/24/2012 11/19/2012 Diabetes mellitus type II 10/15/2011 Genital herpes 10/28/2009 10/29/2018 Burn erythema of hand 01/12/20092018 Migraine without aura 08/19/20082018 Last Assessment & Plan: Assessment: Patient reports migraine headaches at least twice a week Neurology at 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 Patient has diabetes since the age of 53. Hypomagnesemia 10/30/2018 03/07/2021 Last Assessment & Plan: Assessment: Mg 1.6 PLAN: Continue MgOxide 400mg po BID Hypokalemia 10/28/2018 10/29/2018 Last Assessment & Plan: Assessment: K 3.5 Mg 1.5 Had po supplements in ED PLAN: KCl in IVFs Recheck K and Mg levels in AM Weight loss, unintentional 10/28/2018 0 10/31/2018 Last Assessment & Plan: Assessment: Possibly related to uncontrolled DM PLAN: Treatment as above Should have routine health care surveillance - Mammogram; Colonoscopy (colon polyp 11/2012) Gastroparesis due to DM 09/17/201210/01 Pelvic pain in female 07/29/20122018 Abdominal pain, other specified site 07/29/2012 10/29/2018 Vertigo of central origin 04/24/2012 Peripheral vertigo 04/24/2012 9 Headache(784.0) 04/09/2012 10/29/2018 Biliary colic 01/24/2012 11/19/2012 Diabetes mellitus type II 10/15/2011 Genital herpes 10/28/2009 10/29/2018 Burn erythema of hand 01/12/20092018 Migraine without aura 08/19/20082018 Last Assessment & Plan: Assessment: Patient reports migraine headaches at least twice a week Neurology at 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 Patient has diabetes since the age of 53. Hypomagnesemia 10/30/2018 03/07/2021 Last Assessment & Plan: Assessment: Mg 1.6 PLAN: Continue MgOxide 400mg po BID Hypokalemia 10/28/2018 10/29/2018 Last Assessment & Plan: Assessment: K 3.5 Mg 1.5 Had po supplements in ED PLAN: KCl in IVFs Recheck K and Mg levels in AM Weight loss, unintentional 10/28/2018 0 10/31/2018 Last Assessment & Plan: Assessment: Possibly related to uncontrolled DM PLAN: Treatment as above Should have routine health care surveillance - Mammogram; Colonoscopy (colon polyp 11/2012) Gastroparesis due to DM 09/17/201210/01 Pelvic pain in female 07/29/20122018 Abdominal pain, other specified site 07/29/2012 10/29/2018 Vertigo of central origin 04/24/2012 Peripheral vertigo 04/24/2012 9 Headache(784.0) 04/09/2012 10/29/2018 Biliary colic 01/24/2012 11/19/2012 Diabetes mellitus type II 10/15/2011 Genital herpes 10/28/2009 10/29/2018 Burn erythema of hand 01/12/20092018 Migraine without aura 08/19/20082018 Last Assessment & Plan: Assessment: Patient reports migraine headaches at least twice a week Neurology at 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 Patient has diabetes since the age of 53. Hypomagnesemia 10/30/2018 03/07/2021 Last Assessment & Plan: Assessment: Mg 1.6 PLAN: Continue MgOxide 400mg po BID Hypokalemia 10/28/2018 10/29/2018 Last Assessment & Plan: Assessment: K 3.5 Mg 1.5 Had po supplements in ED PLAN: KCl in IVFs Recheck K and Mg levels in AM Weight loss, unintentional 10/28/2018 0 10/31/2018 Last Assessment & Plan: Assessment: Possibly related to uncontrolled DM PLAN: Treatment as above Should have routine health care surveillance - Mammogram; Colonoscopy (colon polyp 11/2012) Gastroparesis due to DM 09/17/201210/01 Pelvic pain in female 07/29/20122018 Abdominal pain, other specified site 07/29/2012 10/29/2018 Vertigo of central origin 04/24/2012 Peripheral vertigo 04/24/2012 9 Headache(784.0) 04/09/2012 10/29/2018 Biliary colic 01/24/2012 11/19/2012 Diabetes mellitus type II 10/15/2011 Genital herpes 10/28/2009 10/29/2018 Burn erythema of hand 01/12/20092018 Migraine without aura 08/19/20082018 Last Assessment & Plan: Assessment: Patient reports migraine headaches at least twice a week Neurology at [facility] recently discontinued Maxalt (triptans) due to history of CVA Neurology following PLAN: Hopefully headaches will improve with decreased BP Started on Diltiazem CD daily for HTN and may help with Migraine prophylaxis documented as of this encounter (statuses as of 02/26/2023) [facility] Proteinuria, unspecified type- Primary Stage 3b chronic kidney disease (HCC) Anemia, unspecified type [facility] Diagnosis Type 1 diabetes mellitus with hyperglycemia (HCC)- Primary Type I (juvenile type) diabetes mellitus without mention of complication, not stated as uncontrolled documented in this encounter [facility] note* Diagnosis 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, unspecified laterality (HCC) documented in this encounter [facility] note* Diagnosis Ataxia- Primary Lack of coordination documented in this encounter [facility] note* Diagnosis Encounter for screening mammogram for breast cancer documented in this encounter [facility] note* Diagnosis Gastroparesis due to DM (HCC) Type II or unspecified type diabetes mellitus with neurological manifestations, not stated as uncontrolled documented in this encounter [facility] note* Diagnosis Gastroparesis due to DM (HCC) Type II or unspecified type diabetes mellitus with neurological manifestations, not stated as uncontrolled Hyperlipidemia, unspecified hyperlipidemia type documented in this encounter [facility] note* Diagnosis Iron deficiency anemia, unspecified iron deficiency anemia type- Primary Hospital discharge follow-up Other follow-up examination 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, unspecified laterality (HCC) ALMA (acute kidney injury) (HCC) Acute kidney failure, unspecified Need for COVID-19 vaccine Hypertension Essential hypertension, benign Hyperlipidemia, unspecified hyperlipidemia type Stage 3b chronic kidney disease (HCC) Proteinuria, unspecified type documented in this encounter [facility] note* Diagnosis 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, unspecified laterality (HCC)- Primary documented in this encounter [facility] note* Diagnosis 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, unspecified laterality (HCC)- Primary documented in this encounter [facility] note* Diagnosis Iron deficiency anemia, unspecified iron deficiency anemia type- Primary documented in this encounter [facility] note* Diagnosis Edema, unspecified type- Primary Orthostatic hypotension Weight gain Abnormal weight gain Hypertension Essential hypertension, benign Stage 3b chronic kidney disease (HCC) 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, unspecified laterality (HCC) Chronic pain syndrome documented in this encounter [facility] note* Diagnosis 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, bilateral (HCC)- Primary Combined forms of age-related cataract of both eyes Other and combined forms of senile cataract Refractive error Unspecified disorder of refraction and accommodation documented in this encounter [facility] note* Diagnosis Anemia, unspecified type- Primary Renal insufficiency Unspecified disorder of kidney and ureter Noncompliance Personal history of noncompliance with medical treatment, presenting hazards to health [facility] Diagnosis Renal insufficiency- Primary Unspecified disorder of kidney and ureter [facility] Diagnosis CKD (chronic kidney disease) stage 4, GFR 15-29 ml/min ([facility])- Primary Chronic kidney disease, Stage IV (severe) Gastrointestinal hemorrhage, unspecified gastrointestinal hemorrhage type Pleural effusion Unspecified pleural effusion Ataxia Lack of coordination Orthostatic hypotension Hypertension Essential hypertension, benign Stage 3b chronic kidney disease (HCC) 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, unspecified laterality (HCC) 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), 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HCC)- Primary Type II or unspecified type diabetes mellitus without mention of complication, not stated as uncontrolled [facility] Diagnosis Hypoxia- Primary Hypoxemia [facility] Diagnosis Hospital discharge follow-up- Primary Other follow-up examination Acute on chronic combined systolic and diastolic CHF (congestive heart failure) (HCC) Acute on chronic combined systolic and diastolic heart failure CKD (chronic kidney disease) stage 4, GFR 15-29 ml/min (HCC) Chronic kidney disease, Stage IV (severe) Anemia, chronic disease Anemia of other chronic disease Autonomic neuropathy Unspecified disorder of autonomic nervous system 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, unspecified laterality (HCC) Chronic pain syndrome Physical debility Debility, unspecified Hypertension Essential hypertension, benign Hypokalemia Hypopotassemia [facility]* Diagnosis 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, unspecified laterality (HCC)- Primary documented in this encounter [facility] note* Diagnosis Garbled speech- Primary Other speech disturbance 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, unspecified laterality (HCC) 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), 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HCC) Type II or unspecified type diabetes mellitus without mention of complication, not stated as uncontrolled Acute on chronic combined systolic and diastolic CHF (congestive heart failure) (HCC) Acute on chronic combined systolic and diastolic heart failure CKD (chronic kidney disease) stage 4, GFR 15-29 ml/min (HCC) Chronic kidney disease, Stage IV (severe) Hypertension Essential hypertension, benign Anemia, chronic disease Anemia of other chronic disease Malnutrition of moderate degree (HCC) Malnutrition of moderate degree Ataxia Lack of coordination Physical debility Debility, unspecified [facility] Diagnosis Encounter for screening mammogram for breast cancer [facility] Diagnosis 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, unspecified laterality (HCC)- Primary Non healing left heel wound Open wound of foot except toe(s) alone, complicated Benign essential HTN Essential hypertension, benign ESRD (end stage renal disease) on dialysis (HCC) End stage renal disease Chronic pain syndrome [facility] Diagnosis Non healing left heel wound- Primary Open wound of foot except toe(s) alone, complicated Orthostatic hypotension Autonomic neuropathy Unspecified disorder of autonomic nervous system Physical debility Debility, unspecified Chronic pain syndrome [facility] Diagnosis Gastroparesis due to DM ([facility]) Type II or unspecified type diabetes mellitus with neurological manifestations, not stated as uncontrolled [facility] Diagnosis Hyperlipidemia, unspecified hyperlipidemia type [facility]* Diagnosis ESRD on dialysis ([facility])- Primary End stage renal disease Pre-transplant evaluation for ESRD (end stage renal disease) Other specified pre-operative examination Hypertension, unspecified type [facility] Diagnosis Pre-transplant evaluation for kidney transplant- Primary Other specified pre-operative examination [facility] Diagnosis Chronic renal failure, stage 5 (HCC)- Primary Pre-transplant evaluation for kidney transplant Other specified pre-operative examination [facility]* Diagnosis 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, bilateral (HCC)- Primary Combined forms of age-related cataract of both eyes Other and combined forms of senile cataract Refractive error Unspecified disorder of refraction and accommodation [facility]* Diagnosis Pre-transplant evaluation for kidney transplant- Primary Other specified pre-operative examination [facility]* Diagnosis Pre-transplant evaluation for CKD (chronic kidney disease)- Primary Other specified pre-operative examination [facility]* Diagnosis Awaiting organ transplant- Primary Awaiting organ transplant status Dietary counseling and surveillance Dietary surveillance and counseling [facility] Diagnosis Pre-transplant evaluation for CKD (chronic kidney disease)- Primary Other specified pre-operative examination [facility] Diagnosis ESRD on dialysis (HCC)- Primary End stage renal disease Type 2 diabetes mellitus with diabetic nephropathy, unspecified whether adjunct faculty for medical terminology insulin use (HCC) Frailty Senility without mention of psychosis Skin ulcer of pretibial region limited to breakdown of skin, unspecified laterality (HCC) documented in this encounter [facility] note* Diagnosis Pre-transplant evaluation for kidney transplant- Primary Other specified pre-operative examination [facility] Diagnosis Elevated liver enzymes- Primary Other nonspecific abnormal serum enzyme levels documented in this encounter [facility] note* Diagnosis Orthostatic hypotension- Primary Hypertension Essential hypertension, benign Chronic congestive heart failure, unspecified heart failure type (HCC) Diastolic heart failure, unspecified HF chronicity (HCC) Hyperlipidemia, unspecified hyperlipidemia type 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), 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HCC) Type II or unspecified type diabetes mellitus without mention of complication, not stated as uncontrolled 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, unspecified laterality (HCC) History of osteomyelitis Personal history of other musculoskeletal disorders Occlusion of carotid artery, unspecified laterality Lymphedema Other lymphedema Vertigo Dizziness and giddiness Autonomic neuropathy Unspecified disorder of autonomic nervous system Ataxia Lack of coordination Chronic pain syndrome End-stage renal disease (HCC) End stage renal disease Need for vaccination Need for prophylactic vaccination and inoculation against unspecified single disease Venous stasis ulcer, unspecified site, unspecified ulcer stage, unspecified whether varicose veins present (HCC) Need for hepatitis C screening test Special screening examination for other specified viral diseases Screening for HIV (human immunodeficiency virus) Special screening examination for other specified viral diseases Contusion of left foot, initial encounter [facility]* Diagnosis Occlusion of carotid artery, unspecified laterality- Primary documented in this encounter [facility] for referral (narrative)* Diagnostic Procedure Only (Routine) - Pending Review Specialty Diagnoses / Procedures Referred By Wicho menard Referred To Contact BR IMAGING Diagnoses Encounter for screening mammogram for breast cancer Procedures SHAYY SCREENING SCREENING MAMMOGRAPHY BI 2-VIEW BREAST INC CAD Dennys Baez MD [address] [place] [address] Br Imaging [facility] [place] [address] Referral ID Status Reason Start Date Expiration Date Visits Requested Visits Authorized [id number] Pending Review Auto-Generat ed Referral 08/16/2021 09/15/2022 1 1 T [facility] for referral (narrative)* Diagnostic Procedure Only (Routine) - Pending Review Specialty Diagnoses / Procedures Referred By Wicho t Referred To Contact BR IMAGING Diagnoses Encounter for screening mammogram for breast cancer Procedures SHAYY SCREENING SCREENING MAMMOGRAPHY BI 2-VIEW BREAST INC CAD Dennys Baez MD [address] [place] [address] Br Imaging [address] [place] [address] Referral ID Status Reason Start Date Expiration Date Visits Requested Visits Authorized [id number] Pending Review Auto-Generat ed Referral 07/25/2022 08/24/2023 1 1 [facility] for referral (narrative)* Diagnostic Procedure Only (Routine) - Closed Specialty Diagnoses / Procedures Referred By Wicho menard Referred To Contact XR IMAGING Diagnoses Contusion of left foot, initial encounter Procedures XR FOOT GENERAL 3V AP/LAT/OBL LEFT RADEX FOOT COMPLETE MINIMUM 3 VIEWS Dennys Baez MD [address] [place] [address] [place] [address] Referral ID Status Reason Start Date Expiration Date V isits Requested Visits Authorized [id number] Closed Auto-Generate d Referral 02/27/2023 03/28/2024 1 1 * Consult, Test, Treat (Routine) - Authorized Specialty Diagnoses / Procedures Referred By Wicho t Referred To Contact Cardiology Diagnoses Chronic congestive heart failure, unspecified heart failure type (HCC) Diastolic heart failure, unspecified HF chronicity (HCC) Procedures CONSULT TO CARDIOLOGY OFFICE/OUTPATIENT NEW [facility]IGH MDM 60-74 MINUTES Dennys Baez MD [address] [place] [address] Referral ID Status Reason Start Date Expiration Date Visits Requested Visits Authorized [id number] Authorized PCP Requested Referral 02/27/2024 1 [facility] Procedure (Routine) - Pending Review Specialty Diagnoses / Procedures Referred By Contac t Referred To [facility] Diagnoses Occlusion of carotid artery, unspecified laterality Procedures US CAROTID ARTERIES ANSHUL VAS LAB DUPLEX SCAN EXTRACRANIAL ART COMPL BI STUDY Dennys Baez MD [address] [place] [address] [facility] [place] [address] [place] [address] Referral ID Status Reason Start Date Expiration Date Visits Requested Visits Authorized [id number] Pending Review Auto-Generat ed Referral 03/01/2023 02/29/2024 1 1 [facility] Summary Purpose Family History No Family History Records FoundNo Family History Records Found Advance Directives No Advanced Directives Records FoundDocuments on File Type Date Recorded Patient Side Puller Expl anation Advance Directive(s) 02/25/2021 4:40 PM Advance Directive(s) 10/28/2018 11:37 AM Documents on File Type Date Recorded Patient Side Puller Expl anation Advance Directive(s) 02/25/2021 4:40 PM Advance Directive(s) 10/28/2018 11:37 AM Reason for Referral Specialty Diagnoses / Procedures Referred By Contac t Referred To Contact Cardiology Diagnoses Type 1 diabetes mellitus with hyperglycemia (HCC) Procedures CONSULT TO CARDIOLOGY OFFICE/OUTPATIENT [facility] 60-74 MINUTES Anthony Cortes MD [address] [place] [address] Referral ID Status Reason Start Date Expiration Date Visits Requested Visits Authorized [id number] Authorized PCP Requested Referral 06/30/2021 06/30/2022 1 1 Specialty Diagnoses / Procedures Referred By Contac t Referred To Contact Diagnoses Type 1 diabetes mellitus with hyperglycemia (HCC) Procedures CONSULT TO DIABETES EDUCATION OFFICE/OUTPATIENT [facility] 60-74 MINUTES Anthony Cortes MD [address] [place] [address] Referral ID Status Reason Start Date Expiration Date Visits Requested Visits Authorized [id number] Authorized PCP Requested Referral 06/30/2021 06/30/2022 1 1 Specialty Diagnoses / Procedures Referred By Contac t Referred To Contact Nephrology Diagnoses Stage 3b chronic kidney disease (HCC) Procedures CONSULT TO NEPHROLOGY OFFICE/OUTPATIENT [facility] 60-74 MINUTES Dennys Baez MD [address] [place] [address] Referral ID Status Reason Start Date Expiration Date Visits Requested Visits Authorized [id number] Authorized PCP Requested Referral 2 02/09/2023 1 1 Specialty Diagnoses / Procedures Referred By Contac t Referred To Contact Endocrinology Diagnoses 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, unspecified laterality (HCC) Procedures CONSULT TO ENDOCRINOLOGY OFFICE/OUTPATIENT [facility] 60-74 MINUTES Dennys Baez MD [address] [place] [address] Referral ID Status Reason Start Date Expiration Date Visits Requested Visits Authorized [id number] Authorized PCP Requested Referral 06/18/2022 06/18/2023 1 1 Specialty Diagnoses / Procedures Referred By Contac t Referred To Contact TRANSPLANT Diagnoses ESRD on dialysis (HCC) Pre-transplant evaluation for ESRD (end stage renal disease) Hypertension, unspecified type Procedures CONSULT TO TRANSPLANT CENTER OFFICE/OUTPATIENT [facility] MDM 60-74 MINUTES CHEST X-RAY, FRONT&LAT ECG ROUTINE ECG W/LEAST 12 LDS TRCG ONLY W/O I&R CT ANGIOGRAPHY CHEST W/CONTRAST/NONCONTRAST CT ABDOMEN W & W/O CONTRAST Aubree Terry, Kelley, DO [address] [address] [facility] [address] [place] [address] Referral ID Status Reason Start Date Expiration Date Visits Requested Visits Authorized [id number] Outside PCP Financial Clearance Required - [employer] 10/24/2022 10/24/2023 99 99 Specialty Diagnoses / Procedures Referred By Contac t Referred To Contact CT IMAGING Diagnoses Chronic renal failure, stage 5 (HCC) Pre-transplant evaluation for kidney transplant Procedures CT ABD/PEL WO IVCON CT ABD & PELVIS W/O CONTRAST Brandy Watson APRN.CHIEF TRANSFER AND PUMPHOUSE OPERATOR [address] [place] [address] [place] [address] Referral ID Status Reason Start Date Expiration Date Visits Requested Visits Authorized [id number] Authorized Auto-Generat ed Referral 12/05/2022 12/28/2023 1 1 Medications Administered Section Active Administered Medications - up to 3 most recent administrations Medication Order MAR Action Action Date Dose Rate Site PHENYLephrine 2.5 % 1 Drop (AK-DILATE, HOLLAND-SYNEPHRINE) 1 Drop, BOTH EYES, DIRECTED, Starting on Sat02/09/22 at 1430, Until 02/10/22 at 0229, Administer for dilation PROTECT FROM LIGHT Given 02/09/2022 2:30 PM EST 1 Drop proparacaine 0.5 % 1 Drop (ALCAINE) 1 Drop, BOTH EYES, DIRECTED, Starting on Sat02/09/22 at 1430, Until 02/10/22 at 0229, Administer for pneumo tonometry, tonopen tonometry, or pachymetry. In the event of a proparacaine shortage, administer tetracaine 0.5% ophthalmic drops 1 drop in both eyes as directed for pneumo tonometry, tonopen tonometry, or pachymetry Given 02/09/2022 2:30 PM EST 1 Drop tropicamide 1 % 1 Drop (MYDRIACYL) 1 Drop, BOTH EYES, DIRECTED, Starting on Sat02/09/22 at 1430, Until 02/10/22 at 0229, Administer for dilation Given 02/09/2022 2:30 PM EST 1 Drop Inactive Administered Medications - up to 3 most recent administrations Medication Order MAR Action Action Date Dose Rate Site PHENYLephrine 2.5 % 1 Drop (AK-DILATE, HOLLAND-SYNEPHRINE) 1 Drop, BOTH EYES, DIRECTED, Starting on Sat02/01/23 at 1330, Until 02/02/23 at 0129, Administer for dilation PROTECT FROM LIGHT Given 02/01/2023 1:43 PM EDT 1 Drop proparacaine 0.5 % 1 Drop (ALCAINE) 1 Drop, BOTH EYES, DIRECTED, Starting on 02/01/23 at 1330, Until 02/02/23 at 0129, Administer for pneumo tonometry, tonopen tonometry, or pachymetry. In the event of a proparacaine shortage, administer tetracaine 0.5% ophthalmic drops 1 drop in the left eye as directed for pneumo tonometry, tonopen tonometry, or pachymetry Given 02/01/2023 1:43 PM EDT 1 Drop tropicamide 1 % 1 Drop (MYDRIACYL) 1 Drop, BOTH EYES, DIRECTED, Starting on 02/01/23 at 1330, Until 02/02/23 at 0129, Administer for dilation Given 02/01/2023 1:43 PM EDT 1 Drop Additional Source Comments INFORMATION SOURCE (unrecogn ized section and content) DATE CREATED AUTHOR AUTHOR'S ORGANIZ ATION 05/03/2023 [facility] Source Comments (unrecognize d section and content) In the event this informatio n is protected by the Federal Confidentiality of Alcohol and Drug Abuse Patient Records regulations: The Federal rules restrict any use of the information to criminally investigate or prosecute any alcohol or drug abuse patient.[facility] the event this information is protected by the Federal Confidentiality of Alcohol and Drug Abuse Patient Records regulations: The Federal rules restrict any use of the information to criminally investigate or prosecute any alcohol or drug abuse patient.[facility] the event this information is protected by the Federal Confidentiality of Alcohol and Drug Abuse Patient Records regulations: The Federal rules restrict any use of the information to criminally investigate or prosecute any alcohol or drug abuse patient.[facility] the event this information is protected by the Federal Confidentiality of Alcohol and Drug Abuse Patient Records regulations: The Federal rules restrict any use of the information to criminally investigate or prosecute any alcohol or drug abuse patient.[facility] the event this information is protected by the Federal Confidentiality of Alcohol and Drug Abuse Patient Records regulations: The Federal rules restrict any use of the information to criminally investigate or prosecute any alcohol or drug abuse patient.[facility] the event this information is protected by the Federal Confidentiality of Alcohol and Drug Abuse Patient Records regulations: The Federal rules restrict any use of the information to criminally investigate or prosecute any alcohol or drug abuse patient.[facility] the event this information is protected by the Federal Confidentiality of Alcohol and Drug Abuse Patient Records regulations: The Federal rules restrict any use of the information to criminally investigate or prosecute any alcohol or drug abuse patient.[facility] the event this information is protected by the Federal Confidentiality of Alcohol and Drug Abuse Patient Records regulations: The Federal rules restrict any use of the information to criminally investigate or prosecute any alcohol or drug abuse patient.[facility] the event this information is protected by the Federal Confidentiality of Alcohol and Drug Abuse Patient Records regulations: The Federal rules restrict any use of the information to criminally investigate or prosecute any alcohol or drug abuse patient.[facility] the event this information is protected by the Federal Confidentiality of Alcohol and Drug Abuse Patient Records regulations: The Federal rules restrict any use of the information to criminally investigate or prosecute any alcohol or drug abuse patient.[facility] the event this information is protected by the Federal Confidentiality of Alcohol and Drug Abuse Patient Records regulations: The Federal rules restrict any use of the information to criminally investigate or prosecute any alcohol or drug abuse patient.[facility] the event this information is protected by the Federal Confidentiality of Alcohol and Drug Abuse Patient Records regulations: The Federal rules restrict any use of the information to criminally investigate or prosecute any alcohol or drug abuse patient.[facility] the event this information is protected by the Federal Confidentiality of Alcohol and Drug Abuse Patient Records regulations: The Federal rules restrict any use of the information to criminally investigate or prosecute any alcohol or drug abuse patient.[facility] the event this information is protected by the Federal Confidentiality of Alcohol and Drug Abuse Patient Records regulations: The Federal rules restrict any use of the information to criminally investigate or prosecute any alcohol or drug abuse patient.[facility] Hospital[facility] the event this information is protected by the Federal Confidentiality of Alcohol and Drug Abuse Patient Records regulations: The Federal rules restrict any use of the information to criminally investigate or prosecute any alcohol or drug abuse patient.[facility] the event this information is protected by the Federal Confidentiality of Alcohol and Drug Abuse Patient Records regulations: The Federal rules restrict any use of the information to criminally investigate or prosecute any alcohol or drug abuse patient.[facility] the event this information is protected by the Federal Confidentiality of Alcohol and Drug Abuse Patient Records regulations: The Federal rules restrict any use of the information to criminally investigate or prosecute any alcohol or drug abuse patient.[facility] HospitalIn the event this information is protected by the Federal Confidentiality of Alcohol and Drug Abuse Patient Records regulations: The Federal rules restrict any use of the information to criminally investigate or prosecute any alcohol or drug abuse patient.[facility] the event this information is protected by the Federal Confidentiality of Alcohol and Drug Abuse Patient Records regulations: The Federal rules restrict any use of the information to criminally investigate or prosecute any alcohol or drug abuse patient.[facility] HospitalIn the event this information is protected by the Federal Confidentiality of Alcohol and Drug Abuse Patient Records regulations: The Federal rules restrict any use of the information to criminally investigate or prosecute any alcohol or drug abuse patient.[facility] HospitalIn the event this information is protected by the Federal Confidentiality of Alcohol and Drug Abuse Patient Records regulations: The Federal rules restrict any use of the information to criminally investigate or prosecute any alcohol or drug abuse patient.[facility] HospitalIn the event this information is protected by the Federal Confidentiality of Alcohol and Drug Abuse Patient Records regulations: The Federal rules restrict any use of the information to criminally investigate or prosecute any alcohol or drug abuse patient.[facility] HospitalIn the event this information is protected by the Federal Confidentiality of Alcohol and Drug Abuse Patient Records regulations: The Federal rules restrict any use of the information to criminally investigate or prosecute any alcohol or drug abuse patient.[facility] HospitalIn the event this information is protected by the Federal Confidentiality of Alcohol and Drug Abuse Patient Records regulations: The Federal rules restrict any use of the information to criminally investigate or prosecute any alcohol or drug abuse patient.[facility] HospitalIn the event this information is protected by the Federal Confidentiality of Alcohol and Drug Abuse Patient Records regulations: The Federal rules restrict any use of the information to criminally investigate or prosecute any alcohol or drug abuse patient.[facility] HospitalIn the event this information is protected by the Federal Confidentiality of Alcohol and Drug Abuse Patient Records regulations: The Federal rules restrict any use of the information to criminally investigate or prosecute any alcohol or drug abuse patient.[facility] HospitalIn the event this information is protected by the Federal Confidentiality of Alcohol and Drug Abuse Patient Records regulations: The Federal rules restrict any use of the information to criminally investigate or prosecute any alcohol or drug abuse patient.[facility] HospitalIn the event this information is protected by the Federal Confidentiality of Alcohol and Drug Abuse Patient Records regulations: The Federal rules restrict any use of the information to criminally investigate or prosecute any alcohol or drug abuse patient.[facility] HospitalIn the event this information is protected by the Federal Confidentiality of Alcohol and Drug Abuse Patient Records regulations: The Federal rules restrict any use of the information to criminally investigate or prosecute any alcohol or drug abuse patient.[facility] HospitalIn the event this information is protected by the Federal Confidentiality of Alcohol and Drug Abuse Patient Records regulations: The Federal rules restrict any use of the information to criminally investigate or prosecute any alcohol or drug abuse patient.[facility] HospitalIn the event this information is protected by the Federal Confidentiality of Alcohol and Drug Abuse Patient Records regulations: The Federal rules restrict any use of the information to criminally investigate or prosecute any alcohol or drug abuse patient.[facility] HospitalIn the event this information is protected by the Federal Confidentiality of Alcohol and Drug Abuse Patient Records regulations: The Federal rules restrict any use of the information to criminally investigate or prosecute any alcohol or drug abuse patient.[facility] HospitalIn the event this information is protected by the Federal Confidentiality of Alcohol and Drug Abuse Patient Records regulations: The Federal rules restrict any use of the information to criminally investigate or prosecute any alcohol or drug abuse patient.[facility] HospitalIn the event this information is protected by the Federal Confidentiality of Alcohol and Drug Abuse Patient Records regulations: The Federal rules restrict any use of the information to criminally investigate or prosecute any alcohol or drug abuse patient.[facility] HospitalIn the event this information is protected by the Federal Confidentiality of Alcohol and Drug Abuse Patient Records regulations: The Federal rules restrict any use of the information to criminally investigate or prosecute any alcohol or drug abuse patient.[facility] HospitalIn the event this information is protected by the Federal Confidentiality of Alcohol and Drug Abuse Patient Records regulations: The Federal rules restrict any use of the information to criminally investigate or prosecute any alcohol or drug abuse patient.[facility] HospitalIn the event this information is protected by the Federal Confidentiality of Alcohol and Drug Abuse Patient Records regulations: The Federal rules restrict any use of the information to criminally investigate or prosecute any alcohol or drug abuse patient.[facility] HospitalIn the event this information is protected by the Federal Confidentiality of Alcohol and Drug Abuse Patient Records regulations: The Federal rules restrict any use of the information to criminally investigate or prosecute any alcohol or drug abuse patient.[facility] HospitalIn the event this information is protected by the Federal Confidentiality of Alcohol and Drug Abuse Patient Records regulations: The Federal rules restrict any use of the information to criminally investigate or prosecute any alcohol or drug abuse patient.[facility] HospitalIn the event this information is protected by the Federal Confidentiality of Alcohol and Drug Abuse Patient Records regulations: The Federal rules restrict any use of the information to criminally investigate or prosecute any alcohol or drug abuse patient.[facility] HospitalIn the event this information is protected by the Federal Confidentiality of Alcohol and Drug Abuse Patient Records regulations: The Federal rules restrict any use of the information to criminally investigate or prosecute any alcohol or drug abuse patient.[facility] HospitalIn the event this information is protected by the Federal Confidentiality of Alcohol and Drug Abuse Patient Records regulations: The Federal rules restrict any use of the information to criminally investigate or prosecute any alcohol or drug abuse patient.[facility] HospitalIn the event this information is protected by the Federal Confidentiality of Alcohol and Drug Abuse Patient Records regulations: The Federal rules restrict any use of the information to criminally investigate or prosecute any alcohol or drug abuse patient.[facility] HospitalIn the event this information is protected by the Federal Confidentiality of Alcohol and Drug Abuse Patient Records regulations: The Federal rules restrict any use of the information to criminally investigate or prosecute any alcohol or drug abuse patient.[facility] HospitalIn the event this information is protected by the Federal Confidentiality of Alcohol and Drug Abuse Patient Records regulations: The Federal rules restrict any use of the information to criminally investigate or prosecute any alcohol or drug abuse patient.[facility] HospitalIn the event this information is protected by the Federal Confidentiality of Alcohol and Drug Abuse Patient Records regulations: The Federal rules restrict any use of the information to criminally investigate or prosecute any alcohol or drug abuse patient.[facility] HospitalIn the event this information is protected by the Federal Confidentiality of Alcohol and Drug Abuse Patient Records regulations: The Federal rules restrict any use of the information to criminally investigate or prosecute any alcohol or drug abuse patient.[facility] HospitalIn the event this information is protected by the Federal Confidentiality of Alcohol and Drug Abuse Patient Records regulations: The Federal rules restrict any use of the information to criminally investigate or prosecute any alcohol or drug abuse patient.[facility] HospitalIn the event this information is protected by the Federal Confidentiality of Alcohol and Drug Abuse Patient Records regulations: The Federal rules restrict any use of the information to criminally investigate or prosecute any alcohol or drug abuse patient.[facility] the event this information is protected by the Federal Confidentiality of Alcohol and Drug Abuse Patient Records regulations: The Federal rules restrict any use of the information to criminally investigate or prosecute any alcohol or drug abuse patient.[facility] HospitalIn the event this information is protected by the Federal Confidentiality of Alcohol and Drug Abuse Patient Records regulations: The Federal rules restrict any use of the information to criminally investigate or prosecute any alcohol or drug abuse patient.[facility] HospitalIn the event this information is protected by the Federal Confidentiality of Alcohol and Drug Abuse Patient Records regulations: The Federal rules restrict any use of the information to criminally investigate or prosecute any alcohol or drug abuse patient.[facility] HospitalIn the event this information is protected by the Federal Confidentiality of Alcohol and Drug Abuse Patient Records regulations: The Federal rules restrict any use of the information to criminally investigate or prosecute any alcohol or drug abuse patient.[facility] HospitalIn the event this information is protected by the Federal Confidentiality of Alcohol and Drug Abuse Patient Records regulations: The Federal rules restrict any use of the information to criminally investigate or prosecute any alcohol or drug abuse patient.[facility] HospitalIn the event this information is protected by the Federal Confidentiality of Alcohol and Drug Abuse Patient Records regulations: The Federal rules restrict any use of the information to criminally investigate or prosecute any alcohol or drug abuse patient.[facility] HospitalIn the event this information is protected by the Federal Confidentiality of Alcohol and Drug Abuse Patient Records regulations: The Federal rules restrict any use of the information to criminally investigate or prosecute any alcohol or drug abuse patient.[facility] HospitalIn the event this information is protected by the Federal Confidentiality of Alcohol and Drug Abuse Patient Records regulations: The Federal rules restrict any use of the information to criminally investigate or prosecute any alcohol or drug abuse patient.[facility] HospitalIn the event this information is protected by the Federal Confidentiality of Alcohol and Drug Abuse Patient Records regulations: The Federal rules restrict any use of the information to criminally investigate or prosecute any alcohol or drug abuse patient.[facility] HospitalIn the event this information is protected by the Federal Confidentiality of Alcohol and Drug Abuse Patient Records regulations: The Federal rules restrict any use of the information to criminally investigate or prosecute any alcohol or drug abuse patient.[facility] HospitalIn the event this information is protected by the Federal Confidentiality of Alcohol and Drug Abuse Patient Records regulations: The Federal rules restrict any use of the information to criminally investigate or prosecute any alcohol or drug abuse patient.[facility] HospitalIn the event this information is protected by the Federal Confidentiality of Alcohol and Drug Abuse Patient Records regulations: The Federal rules restrict any use of the information to criminally investigate or prosecute any alcohol or drug abuse patient.[facility] HospitalIn the event this information is protected by the Federal Confidentiality of Alcohol and Drug Abuse Patient Records regulations: The Federal rules restrict any use of the information to criminally investigate or prosecute any alcohol or drug abuse patient.[facility] HospitalIn the event this information is protected by the Federal Confidentiality of Alcohol and Drug Abuse Patient Records regulations: The Federal rules restrict any use of the information to criminally investigate or prosecute any alcohol or drug abuse patient.[facility] HospitalIn the event this information is protected by the Federal Confidentiality of Alcohol and Drug Abuse Patient Records regulations: The Federal rules restrict any use of the information to criminally investigate or prosecute any alcohol or drug abuse patient.[facility] HospitalIn the event this information is protected by the Federal Confidentiality of Alcohol and Drug Abuse Patient Records regulations: The Federal rules restrict any use of the information to criminally investigate or prosecute any alcohol or drug abuse patient.[facility] HospitalIn the event this information is protected by the Federal Confidentiality of Alcohol and Drug Abuse Patient Records regulations: The Federal rules restrict any use of the information to criminally investigate or prosecute any alcohol or drug abuse patient.[facility] HospitalIn the event this information is protected by the Federal Confidentiality of Alcohol and Drug Abuse Patient Records regulations: The Federal rules restrict any use of the information to criminally investigate or prosecute any alcohol or drug abuse patient.[facility] HospitalIn the event this information is protected by the Federal Confidentiality of Alcohol and Drug Abuse Patient Records regulations: The Federal rules restrict any use of the information to criminally investigate or prosecute any alcohol or drug abuse patient.[facility] HospitalIn the event this information is protected by the Federal Confidentiality of Alcohol and Drug Abuse Patient Records regulations: The Federal rules restrict any use of the information to criminally investigate or prosecute any alcohol or drug abuse patient.[facility] HospitalIn the event this information is protected by the Federal Confidentiality of Alcohol and Drug Abuse Patient Records regulations: The Federal rules restrict any use of the information to criminally investigate or prosecute any alcohol or drug abuse patient.[facility] HospitalIn the event this information is protected by the Federal Confidentiality of Alcohol and Drug Abuse Patient Records regulations: The Federal rules restrict any use of the information to criminally investigate or prosecute any alcohol or drug abuse patient.[facility] HospitalIn the event this information is protected by the Federal Confidentiality of Alcohol and Drug Abuse Patient Records regulations: The Federal rules restrict any use of the information to criminally investigate or prosecute any alcohol or drug abuse patient.[facility] HospitalIn the event this information is protected by the Federal Confidentiality of Alcohol and Drug Abuse Patient Records regulations: The Federal rules restrict any use of the information to criminally investigate or prosecute any alcohol or drug abuse patient.[facility] HospitalIn the event this information is protected by the Federal Confidentiality of Alcohol and Drug Abuse Patient Records regulations: The Federal rules restrict any use of the information to criminally investigate or prosecute any alcohol or drug abuse patient.[facility] HospitalIn the event this information is protected by the Federal Confidentiality of Alcohol and Drug Abuse Patient Records regulations: The Federal rules restrict any use of the information to criminally investigate or prosecute any alcohol or drug abuse patient.[facility] HospitalIn the event this information is protected by the Federal Confidentiality of Alcohol and Drug Abuse Patient Records regulations: The Federal rules restrict any use of the information to criminally investigate or prosecute any alcohol or drug abuse patient.[facility] HospitalIn the event this information is protected by the Federal Confidentiality of Alcohol and Drug Abuse Patient Records regulations: The Federal rules restrict any use of the information to criminally investigate or prosecute any alcohol or drug abuse patient.[facility] HospitalIn the event this information is protected by the Federal Confidentiality of Alcohol and Drug Abuse Patient Records regulations: The Federal rules restrict any use of the information to criminally investigate or prosecute any alcohol or drug abuse patient.[facility] HospitalIn the event this information is protected by the Federal Confidentiality of Alcohol and Drug Abuse Patient Records regulations: The Federal rules restrict any use of the information to criminally investigate or prosecute any alcohol or drug abuse patient.[facility] HospitalIn the event this information is protected by the Federal Confidentiality of Alcohol and Drug Abuse Patient Records regulations: The Federal rules restrict any use of the information to criminally investigate or prosecute any alcohol or drug abuse patient.[facility] HospitalIn the event this information is protected by the Federal Confidentiality of Alcohol and Drug Abuse Patient Records regulations: The Federal rules restrict any use of the information to criminally investigate or prosecute any alcohol or drug abuse patient.[facility] HospitalIn the event this information is protected by the Federal Confidentiality of Alcohol and Drug Abuse Patient Records regulations: The Federal rules restrict any use of the information to criminally investigate or prosecute any alcohol or drug abuse patient.[facility] HospitalIn the event this information is protected by the Federal Confidentiality of Alcohol and Drug Abuse Patient Records regulations: The Federal rules restrict any use of the information to criminally investigate or prosecute any alcohol or drug abuse patient.[facility] HospitalIn the event this information is protected by the Federal Confidentiality of Alcohol and Drug Abuse Patient Records regulations: The Federal rules restrict any use of the information to criminally investigate or prosecute any alcohol or drug abuse patient.[facility] HospitalIn the event this information is protected by the Federal Confidentiality of Alcohol and Drug Abuse Patient Records regulations: The Federal rules restrict any use of the information to criminally investigate or prosecute any alcohol or drug abuse patient.[facility] HospitalIn the event this information is protected by the Federal Confidentiality of Alcohol and Drug Abuse Patient Records regulations: The Federal rules restrict any use of the information to criminally investigate or prosecute any alcohol or drug abuse patient.[facility] HospitalIn the event this information is protected by the Federal Confidentiality of Alcohol and Drug Abuse Patient Records regulations: The Federal rules restrict any use of the information to criminally investigate or prosecute any alcohol or drug abuse patient.[facility] HospitalIn the event this information is protected by the Federal Confidentiality of Alcohol and Drug Abuse Patient Records regulations: The Federal rules restrict any use of the information to criminally investigate or prosecute any alcohol or drug abuse patient.[facility] HospitalIn the event this information is protected by the Federal Confidentiality of Alcohol and Drug Abuse Patient Records regulations: The Federal rules restrict any use of the information to criminally investigate or prosecute any alcohol or drug abuse patient.[facility] HospitalIn the event this information is protected by the Federal Confidentiality of Alcohol and Drug Abuse Patient Records regulations: The Federal rules restrict any use of the information to criminally investigate or prosecute any alcohol or drug abuse patient.[facility] HospitalIn the event this information is protected by the Federal Confidentiality of Alcohol and Drug Abuse Patient Records regulations: The Federal rules restrict any use of the information to criminally investigate or prosecute any alcohol or drug abuse patient.[facility] HospitalIn the event this information is protected by the Federal Confidentiality of Alcohol and Drug Abuse Patient Records regulations: The Federal rules restrict any use of the information to criminally investigate or prosecute any alcohol or drug abuse patient.[facility] HospitalIn the event this information is protected by the Federal Confidentiality of Alcohol and Drug Abuse Patient Records regulations: The Federal rules restrict any use of the information to criminally investigate or prosecute any alcohol or drug abuse patient.[facility] HospitalIn the event this information is protected by the Federal Confidentiality of Alcohol and Drug Abuse Patient Records regulations: The Federal rules restrict any use of the information to criminally investigate or prosecute any alcohol or drug abuse patient.[facility] HospitalIn the event this information is protected by the Federal Confidentiality of Alcohol and Drug Abuse Patient Records regulations: The Federal rules restrict any use of the information to criminally investigate or prosecute any alcohol or drug abuse patient.[facility] HospitalIn the event this information is protected by the Federal Confidentiality of Alcohol and Drug Abuse Patient Records regulations: The Federal rules restrict any use of the information to criminally investigate or prosecute any alcohol or drug abuse patient.[facility] HospitalIn the event this information is protected by the Federal Confidentiality of Alcohol and Drug Abuse Patient Records regulations: The Federal rules restrict any use of the information to criminally investigate or prosecute any alcohol or drug abuse patient.[facility] HospitalIn the event this information is protected by the Federal Confidentiality of Alcohol and Drug Abuse Patient Records regulations: The Federal rules restrict any use of the information to criminally investigate or prosecute any alcohol or drug abuse patient.[facility] HospitalIn the event this information is protected by the Federal Confidentiality of Alcohol and Drug Abuse Patient Records regulations: The Federal rules restrict any use of the information to criminally investigate or prosecute any alcohol or drug abuse patient.[facility] HospitalIn the event this information is protected by the Federal Confidentiality of Alcohol and Drug Abuse Patient Records regulations: The Federal rules restrict any use of the information to criminally investigate or prosecute any alcohol or drug abuse patient.[facility] HospitalIn the event this information is protected by the Federal Confidentiality of Alcohol and Drug Abuse Patient Records regulations: The Federal rules restrict any use of the information to criminally investigate or prosecute any alcohol or drug abuse patient.[facility] HospitalIn the event this information is protected by the Federal Confidentiality of Alcohol and Drug Abuse Patient Records regulations: The Federal rules restrict any use of the information to criminally investigate or prosecute any alcohol or drug abuse patient.[facility] Reason for Visit (unrecogniz ed section and content) Reason Comments Consult Specialty Diagnoses / Procedures Referred By Contac t Referred To Contact Endocrinology Diagnoses 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, unspecified laterality (HCC) Procedures CONSULT TO ENDOCRINOLOGY OFFICE/OUTPATIENT [facility] 60-74 MINUTES Dennys Baez MD [address] [facility] [place] [address] Referral ID Status Reason Start Date Expiration Date V isits Requested Visits Authorized [id number] Closed PCP Requested Referral 06/19/2021 06/19/2022 1 1 Reason Comments Orders Reason Onset Date Comments Population Health Navigation Outreach 08/22/2021 [place] Attribution Reason Onset Date Comments Refill Request 10/06/2021 Reason Onset Date Comments Refill Request 11/08/2021 Reason Comments Orders [facility] Home Health Orde rs Reason Comments OT Plan of Care Reason Comments home health calling report, need verbal orders Reason Comments Hospital Follow Up Reason Comments report of evelevated blood pressure Reason Comments Low BS episodes Reason Comments Patient Update Reason Comments Results Reason Comments Long-Term Updated Plan of Care/Blo od Sugar update Reason Comments increased blood pressure Reason Comments Patient Question Reason Comments Edema Bilateral leg edema Reason Comments Diabetes Reason Comments Patient concern Reason Comments Edema Reason Comments Lab Orders Reason Comments Forms Reason Onset Date Comments Refill Request 03/05/2022 Reason Comments BP update Reason Comments error Reason Comments Home Health Point of Care Results Reason Comments Patient Update HH Nursing Update Reason Comments questions from home health emiliano e oracle database manager Reason Comments Patient Update Results Reason Comments Vomiting Reason Comments Hospital Admission Reason Comments Blood Pressure Reason Comments Appt problem Reason Comments Hospital F/U Reason Comments Orders Patient Update Reason Comments home health plan of care Reason Onset Date Comments Refill Request 04/09/2022 Reason Comments Long-Term Plan of Care Reason Comments OT POC and question Reason Comments Home Health PT Update Reason Comments Referral Request Reason Comments [facility] HHm OT update No call back needed Reason Comments Weakness Reason Comments Social Work Services Reason Comments Dr Terry office requesting records Reason Comments Orders OT Reason Comments Follow Up Detention Dischar ge follow up Reason Comments Patient Update Blood Sugar Issues Reason Comments Mental Status Changes Reason Onset Date Comments Virtualist 06/19/2022 Reason Comments Follow Up DM and wound Reason Comments Physical Therapy Plan of Care Reason Comments Consult Reason Onset Date Comments Allied Health Visit 06/23/2022 Medication A dherence Outreach Reason Comments Orders [facility] Cert of medical necessity Reason Comments Orders CMN Reason Onset Date Comments Population Health Navigation Outreach 08/02/2022 Navigator [place] care gap outreach Reason Onset Date Comments Refill Request 09/13/2022 Reason Comments Recheck 3 month follow up Reason Comments Refill Request Reason Onset Date Comments Refill Request 10/17/2022 Reason Comments Referral - Kidney Txp Reason Comments Referral - Kidney Txp Follow Up Reason Onset Date Comments Refill Request 01/11/2023 Reason Onset Date Comments Population Health Navigation Outreach 01/25/2023 [place] care gaps Reason Comments Diabetic Eye Exam Type 1 IDDM Reason Comments Patient Education Reason Comments Transplant Evaluation Reason Comments Home Health Nursing Request Reason Comments [facility] Reason Onset Date Comments Refill Request 02/25/2023 Reason Comments Follow Up Reason Comments Patient Question Care Teams (unrecognized sec tion and content) Anesthesia Technician Relationship Specialty Start Date End Date Dennys Baez MD [address] [place], [place] [id number] PCP - General Family Practice 12/26/11 [facility] [address] [place], [place] [address] Other 03/17/19 [facility], [place] 04/13/19 oj care source oracle database manager 04/29/19 Anesthesia Technician Relationship Specialty Start Date End Date Dennys Baez MD [address] [place], [place] [id number] PCP - General Family Practice 12/26/11 [facility] [address] [place], [place] 824643 Other 03/17/19 [facility], [place] 04/13/19 oj care source oracle database manager 04/29/19 Anesthesia Technician Relationship Specialty Start Date End Date Dennys Baez MD [address] [place], [place] [id number] PCP - General Family Practice 12/26/11 [facility] [address] [place] [address] Other 03/17/19 Medical, [place] 04/13/19 oj care source oracle database manager 04/29/19 Anesthesia Technician Relationship Specialty Start Date End Date Dennys Baez MD [address] [place], [place] 273221 PCP - General Family Practice 12/26/11 [facility] [address] [place] [address] Other 03/17/19 Medical, [place] 04/13/19 oj care source oracle database manager 04/29/19 Anesthesia Technician Relationship Specialty Start Date End Date Dennys Baez MD [address] [place], [place] 546131 PCP - General Family Practice 12/26/11 [facility] [address] [place] [address] Other 03/17/19 Medical, [place] 04/13/19 oj care source oracle database manager 04/29/19 Anesthesia Technician Relationship Specialty Start Date End Date Dennys Baez MD [address] [place], [place] 830731 PCP - General Family Practice 12/26/11 [facility] [address] [place] [address] Other 03/17/19 Medical, [place] 04/13/19 oj care source oracle database manager 04/29/19 Anesthesia Technician Relationship Specialty Start Date End Date Dennys Baez MD [address] [place], [place] [id number] PCP - General Family Practice 12/26/11 [facility] [address] [place] [address] Other 03/17/19 Medical, [place] 04/13/19 oj care source oracle database manager 04/29/19 Anesthesia Technician Relationship Specialty Start Date End Date Dennys Baez MD [address] [place], [place] 248821 PCP - General Family Medicine 12/26/11 [facility] [address] [place] [address] Other 03/17/19 Medical, [place] 04/13/19 oj care source oracle database manager 04/29/19 Anesthesia Technician Relationship Specialty Start Date End Date Dennys Baez MD [address] [place] [address] PCP - General Family Medicine 12/26/11 [facility] [address] [place] [address] Other 03/17/19 [facility] [place] 04/13/19 oj care source oracle database manager 04/29/19 Anesthesia Technician Relationship Specialty Start Date End Date Dennys Baez MD [address] [place], [place] [id number] PCP - General Family Medicine 12/26/11 [facility] [address] [place] [address] Other 03/17/19 Medical, [place] 04/13/19 oj care source oracle database manager 04/29/19 Anesthesia Technician Relationship Specialty Start Date End Date Dennys Baez MD [address] [place], [place] 919521 PCP - General Family Medicine 12/26/11 [facility] [address] [place] [address] Other 03/17/19 Medical, [place] 04/13/19 oj care source oracle database manager 04/29/19 Anesthesia Technician Relationship Specialty Start Date End Date Dennys Baez MD [address] [place] [address] PCP - General Family Medicine 12/26/11 [facility] [address] [place] [address] Other 03/17/19 Medical, [place] 04/13/19 oj care source oracle database manager 04/29/19 Anesthesia Technician Relationship Specialty Start Date End Date Dennys Baez MD [address] [place], [place] [id number] PCP - General Family Medicine 12/26/11 [facility] [address] [place] [address] Other 03/17/19 Medical, [place] 04/13/19 oj care source oracle database manager 04/29/19 Anesthesia Technician Relationship Specialty Start Date End Date Dennys Baez MD [address] [place], [place] 144911 PCP - General Family Medicine 12/26/11 [facility] [address] [place] [address] Other 03/17/19 Medical, [place] 04/13/19 oj care source oracle database manager 04/29/19 Anesthesia Technician Relationship Specialty Start Date End Date Dennys Baez MD [address] [place] [address] PCP - General Family Medicine 12/26/11 [facility] [address] [place] [address] Other 03/17/19 Medical, [place] 04/13/19 oj care source oracle database manager 04/29/19 Anesthesia Technician Relationship Specialty Start Date End Date Dennys Baez MD [address] [place] [address] PCP - General Family Medicine 12/26/11 [facility] [address] [place] [address] Other 03/17/19 Medical, [place] 04/13/19 oj care source oracle database manager 04/29/19 Anesthesia Technician Relationship Specialty Start Date End Date Dennys Baez MD [address] [place] [address] PCP - General Family Medicine 12/26/11 [facility] [address] [place] [address] Other 03/17/19 Medical, [place] 04/13/19 oj care source oracle database manager 04/29/19 Anesthesia Technician Relationship Specialty Start Date End Date Dennys Baze MD [address] [place], [place] 611961 PCP - General Family Medicine 12/26/11 [facility] [address] [place] [address] Other 03/17/19 Medical, [place] 04/13/19 oj care source oracle database manager 04/29/19 Anesthesia Technician Relationship Specialty Start Date End Date Dennys Baez MD [address] [place] [address] PCP - General Family Medicine 12/26/11 [facility] [address] [place] [address] Other 03/17/19 Medical, [place] 04/13/19 oj care source oracle database manager 04/29/19 Anesthesia Technician Relationship Specialty Start Date End Date Dennys Baez MD [address] [place] [address] PCP - General Family Medicine 12/26/11 [facility] [address] [place] [address] Other 03/17/19 Medical, [place] 04/13/19 oj care source oracle database manager 04/29/19 Anesthesia Technician Relationship Specialty Start Date End Date Dennys Baez MD [address] [place], [place] 206031 PCP - General Family Medicine 12/26/11 [facility] [address] [place] [address] Other 03/17/19 Medical, [place] 04/13/19 oj care source oracle database manager 04/29/19 Anesthesia Technician Relationship Specialty Start Date End Date Dennys Baez MD [address] [place], [place] 999591 PCP - General Family Medicine 12/26/11 [facility] [address] [place] [address] Other 03/17/19 Medical, [place] 04/13/19 oj care source oracle database manager 04/29/19 Anesthesia Technician Relationship Specialty Start Date End Date Dennys Baez MD [address] [place] [address] PCP - General Family Medicine 12/26/11 [facility] [address] [place] [address] Other 03/17/19 Medical, [place] 04/13/19 oj care source oracle database manager 04/29/19 Anesthesia Technician Relationship Specialty Start Date End Date Dennys Baez MD [address] [place], [place] 512901 PCP - General Family Medicine 12/26/11 [facility] [address] [place] [address] Other 03/17/19 Medical, [place] 04/13/19 oj care source oracle database manager 04/29/19 Anesthesia Technician Relationship Specialty Start Date End Date Dennys Baez MD [address] [place] [address] PCP - General Family Medicine 12/26/11 [facility] [address] [place] [address] Other 03/17/19 Medical, [place] 04/13/19 oj care source oracle database manager 04/29/19 Anesthesia Technician Relationship Specialty Start Date End Date Dennys Baez MD [address] [place] [address] PCP - General Family Medicine 12/26/11 [facility] [address] [place] [address] Other 03/17/19 Medical, [place] 04/13/19 oj care source oracle database manager 04/29/19 Anesthesia Technician Relationship Specialty Start Date End Date Dennys Baez MD [address] [place], [place] 558101 PCP - General Family Medicine 12/26/11 [facility] [address] [place] [address] Other 03/17/19 Medical, [place] 04/13/19 oj care source oracle database manager 04/29/19 Anesthesia Technician Relationship Specialty Start Date End Date Dennys Baez MD [address] [place], [place] 128501 PCP - General Family Medicine 12/26/11 [facility] [address] [place] [address] Other 03/17/19 Medical, [place] 04/13/19 oj care source oracle database manager 04/29/19 Anesthesia Technician Relationship Specialty Start Date End Date Dennys Baez MD [address] [place], [place] 066921 PCP - General Family Medicine 12/26/11 [facility] [address] [place] [address] Other 03/17/19 Medical, [place] 04/13/19 oj care source oracle database manager 04/29/19 Anesthesia Technician Relationship Specialty Start Date End Date Dennys Baez MD [address] [place] [address] PCP - General Family Medicine 12/26/11 [facility] [address] [place] [address] Other 03/17/19 [facility] [place] 04/13/19 oj care source oracle database manager 04/29/19 Anesthesia Technician Relationship Specialty Start Date End Date Dennys Baez MD [address] [place], [place] [id number] PCP - General Family Medicine 12/26/11 [facility] [address] [place] [address] Other 03/17/19 Medical, [place] 04/13/19 oj care source oracle database manager 04/29/19 Anesthesia Technician Relationship Specialty Start Date End Date Dennys Baez MD [address] [place], [place] 485711 PCP - General Family Medicine 12/26/11 [facility] [address] [place] [address] Other 03/17/19 Medical, [place] 04/13/19 oj care source oracle database manager 04/29/19 Anesthesia Technician Relationship Specialty Start Date End Date Dennys Baez MD [address] [place], [place] 645511 PCP - General Family Medicine 12/26/11 [facility] [address] [place], [place] [id number] Other 03/17/19 Medical, [place] 04/13/19 oj care source oracle database manager 04/29/19 Anesthesia Technician Relationship Specialty Start Date End Date Dennys Baez MD [address] [place], [place] 284151 PCP - General Family Medicine 12/26/11 [facility] [address] [place], [place] [id number] Other 03/17/19 Medical, [place] 04/13/19 oj care source oracle database manager 04/29/19 Anesthesia Technician Relationship Specialty Start Date End Date Dennys Baez MD [address] [place], [place] 634411 PCP - General Family Medicine 12/26/11 [facility] [address] [place] [address] Other 03/17/19 Medical, [place] 04/13/19 oj care source oracle database manager 04/29/19 Anesthesia Technician Relationship Specialty Start Date End Date Dennys Baez MD [address] [place], [place] [id number] PCP - General Family Medicine 12/26/11 [facility] [address] [place] [address] Other 03/17/19 [facility] [place] 04/13/19 oj care source oracle database manager 04/29/19 Anesthesia Technician Relationship Specialty Start Date End Date Dennys Baez MD [address] [place], [place] 349911 PCP - General Family Medicine 12/26/11 [facility] [address] [place], [place] [id number] Other 03/17/19 [facility] [place] 04/13/19 oj care source oracle database manager 04/29/19 Anesthesia Technician Relationship Specialty Start Date End Date Dennys Baez MD [address] [place], [place] [id number] PCP - General Family Medicine 12/26/11 [facility] [address] [place], [place] 795573 Other 03/17/19 Medical, [place] 04/13/19 oj care source oracle database manager 04/29/19 Anesthesia Technician Relationship Specialty Start Date End Date Dennys Baez MD [address] [place], [place] [id number] PCP - General Family Medicine 12/26/11 [facility] [address] [place], [place] 459943 Other 03/17/19 Medical, [place] 04/13/19 oj care source oracle database manager 04/29/19 Anesthesia Technician Relationship Specialty Start Date End Date Dennys Baez MD [address] [place], [place] 216711 PCP - General Family Medicine 12/26/11 [facility] [address] [place], [place] 117303 Other 03/17/19 [facility] [place] 04/13/19 oj care source oracle database manager 04/29/19 Anesthesia Technician Relationship Specialty Start Date End Date Dennys Baez MD [address] [place], [place] [id number] PCP - General Family Medicine 12/26/11 [facility] [address] [place] [address] Other 03/17/19 Medical, [place] 04/13/19 oj care source oracle database manager 04/29/19 Anesthesia Technician Relationship Specialty Start Date End Date Dennys Baez MD [address] [place], [place] 540041 PCP - General Family Medicine 12/26/11 [facility] [address] [place], [place] 137433 Other 03/17/19 Medical, [place] 04/13/19 oj care source oracle database manager 04/29/19 Anesthesia Technician Relationship Specialty Start Date End Date Dennys Baez MD [address] [place], [place] 817931 PCP - General Family Medicine 12/26/11 [facility] [address] [place] [address] Other 03/17/19 Medical, [place] 04/13/19 oj care source oracle database manager 04/29/19 Anesthesia Technician Relationship Specialty Start Date End Date Dennys Baez MD [address] [place], [place] 502281 PCP - General Family Medicine 12/26/11 [facility] [address] [place] [address] Other 03/17/19 Medical, [place] 04/13/19 oj care source oracle database manager 04/29/19 Anesthesia Technician Relationship Specialty Start Date End Date Dennys Baez MD [address] [place], [place] 087861 PCP - General Family Medicine 12/26/11 [facility] [address] [place] [address] Other 03/17/19 Medical, [place] 04/13/19 oj care source oracle database manager 04/29/19 Anesthesia Technician Relationship Specialty Start Date End Date Dennys Baez MD [address] [place], [place] 533461 PCP - General Family Medicine 12/26/11 [facility] [address] [place] [address] Other 03/17/19 Medical, [place] 04/13/19 oj care source oracle database manager 04/29/19 Anesthesia Technician Relationship Specialty Start Date End Date Dennys Baez MD [address] [place], [place] 616911 PCP - General Family Medicine 12/26/11 [facility] [address] [place] [address] Other 03/17/19 Medical, [place] 04/13/19 oj care source oracle database manager 04/29/19 Anesthesia Technician Relationship Specialty Start Date End Date Dennys Baez MD [address] [place], [place] 322201 PCP - General Family Medicine 12/26/11 [facility] [address] [place], [place] 413683 Other 03/17/19 Medical, [place] 04/13/19 oj care source oracle database manager 04/29/19 Anesthesia Technician Relationship Specialty Start Date End Date Dennys Baez MD [address] [place] [address]97131 PCP - General Family Medicine 12/26/11 [facility] [address] [place] [address]60[address] Other 03/17/19 Medical, [place] 04/13/19 oj care source oracle database manager 04/29/19 Anesthesia Technician Relationship Specialty Start Date End Date Dennys Baez MD [address] [place], [place] 541021 PCP - General Family Medicine 12/26/11 [facility] [address] [place] [address] 981083 Other 03/17/19 Medical, [place] 04/13/19 oj care source oracle database manager 04/29/19 Anesthesia Technician Relationship Specialty Start Date End Date Dennys Baez MD [address] [place], [place] 837291 PCP - General Family Medicine 12/26/11 [facility] [address] [place] [address] Other 03/17/19 [facility] [place] 04/13/19 oj care source oracle database manager 04/29/19 Anesthesia Technician Relationship Specialty Start Date End Date Dennys Baez MD [address] [place], [place] 856171 PCP - General Family Medicine 12/26/11 [facility] [address] [place], [place] 276243 Other 03/17/19 [facility] [place] 04/13/19 oj care source oracle database manager 04/29/19 Anesthesia Technician Relationship Specialty Start Date End Date Dennys Baez MD [address] [place] [address] PCP - General Family Medicine 12/26/11 [facility] [address] [place], [place] [id number] Other 03/17/19 [facility] [place] 04/13/19 oj care source oracle database manager 04/29/19 FOR RECORDS PERTAINING TO PATIENTS WHO ARE OR HAVE BEEN ENROLLED IN A CHEMICAL DEPENDENCY/SUBSTANCEABUSE PROGRAM, SOME INFORMATION MAY BE OMITTED. This clinical summary was aggregated from multiple sources. Caution should be exercised in using it in the provision of clinical care. This summary normalizes information from multiple sources, and as a consequence, information in this document may materially change the coding, format and clinical context of patient data. In addition, data may be omitted in some cases. CLINICAL DECISIONS SHOULD BE BASED ON THE PRIMARY CLINICAL RECORDS. [facility] [employer] [facility] provides no warranty or guarantee of the accuracy or completeness of information in this document.
[2023-05-26 12:43] LABS: Anion Gap 6 (5-15); BUN 40 mg/dL (7-18); BUN/Creat Ratio 7.8 RATIO (10-20); Chloride 108 mmol/L (98-107); Creatinine, Serum 5.15 mg/dL (0.55-1.02); EST Glomerular Filtration Rate 9 mL/min (>60); Est Glom Filt Rate - Afr Amer 11 mL/min (>60); Estimated Creatinine Clearance 12.11 ml/min; Glucose 188 mg/dL (74-106); Potassium 4.7 mmol/L (3.5-5.1); Sodium Level 141 mmol/L (136-145)
[2023-05-26 13:12] VITALS: BP 143/78; PULSE 64; RESP 16; TEMP 36.4; O2SAT 99
== END 2023-05-26 13:36 | disposition home or self-care (01) ==
PROVIDERS: Emergency Provider Emergency Medicine; PCP Family Medicine; Visit Provider Emergency Medicine
DX: T82.42XA Displacement of vascular dialysis catheter, initial encounter (principal); Z99.2 Dependence on renal dialysis; E11.22 Type 2 diabetes mellitus with diabetic chronic kidney disease; I12.0 Hypertensive chronic kidney disease with stage 5 chronic kidney disease or end stage renal disease; N18.5 Chronic kidney disease, stage 5; Z79.4 Long term (current) use of insulin; E78.00 Pure hypercholesterolemia, unspecified; Z79.82 Long term (current) use of aspirin; Z79.899 Other long term (current) drug therapy; F32.A Depression, unspecified; K21.9 Gastro-esophageal reflux disease without esophagitis; Z90.49 Acquired absence of other specified parts of digestive tract; X58.XXXA Exposure to other specified factors, initial encounter
CPT/HCPCS: 36415; 71250; 80048; 85025; 85610; 85730; 99283

== ENCOUNTER 2023-06-03 10:05 | Emergency (ER) | payer MEDICARE, MEDICAID, SELFPAY ==
[2023-06-03 10:18] VITALS: BP 131/69; PULSE 86; RESP 16; TEMP 36.2; O2SAT 98
[2023-06-03 10:54] VITALS: BMI 26.8
--- NOTE | 2023-06-03 11:18 | EDS_ITS ---
HPI <MARIE Bryant - Last Filed: 06/03/23 12:48> History of Present Illness Chief Complaint: Back Narrative Narrative: Patient presents today due to low back pain that started this morning when she woke up. She reports that she thinks that she slept wrong. She has had pain similar to this in the past on and off. She takes tramadol for chronic pain and took one this morning but it did not seem to help. She denies any radicular symptoms, injury to her back, fever, chills, bowel/bladder incontinence, saddle paresthesia, urinary symptoms, and history of IV drug use. PFSH <MARIE Bryant - Last Filed: 06/03/23 12:48> [facility] Medical History Accidental fall Anemia Arthritis Bilateral pleural effusion Cardiology follow-up encounter Chronic pain syndrome CKD (chronic kidney disease) stage 4, GFR 15-29 ml/min Closed intertrochanteric fracture of left hip Depression Diabetes Diabetes mellitus with hyperglycemia Dietary restriction Difficulty chewing Essential hypertension Excessive bleeding Gastric reflux High cholesterol History of echocardiogram History of edema History of orthostatic hypotension History of renal dialysis History of renal disease History of stress test HLD (hyperlipidemia) HTN (hypertension) Hx of orthostatic hypotension Hypoglycemia due to insulin Injury of head and neck Insulin dependent diabetes mellitus Long-term insulin use Low iron Malnutrition Migraine headache Migraine without aura Non-smoker Post-concussion syndrome Stage 5 chronic kidney disease due to type 2 diabetes mellitus Symptomatic anemia Syncope Transfusion of blood during current hospitalisation Uses wheelchair Vertigo Vomiting Walker as ambulation aid Wears glasses Home Medications aspirin 81 mg chewable tablet 81 mg PO QHS HEART HEALTH 12/15/19 [History Last Taken 11/20/22] atorvastatin 40 mg tablet 40 mg PO QHS CHOLESTEROL 12/15/19 [History Last Taken 11/19/22] insulin lispro 100 unit/mL subcutaneous pen (Humalog KwikPen (U-100) Insulin) 8 unit subcut TIDCM diabetes 01/06/22 [History Last Taken 03/13/23] sertraline 50 mg tablet 50 mg PO QHS DEPRESSION 01/06/22 [History Last Taken 11/20/22] polyethylene glycol 3350 17 gram oral powder packet 17 g PO DAILY PRN Constipation 02/13/22 [History Last Taken 03/13/22] omeprazole 20 mg capsule,delayed release 20 mg PO DAILY gerd 04/30/22 [History Last Taken 11/20/22] pregabalin 75 mg capsule 75 mg PO BID #10 caps 05/04/22 [Rx Last Taken 11/20/22] calcium acetate(phosphat bind) 667 mg capsule 667 mg PO TID 05/25/22 [History Last Taken 11/19/22] tramadol 50 mg tablet 50 mg PO Q6H PRN pain 3 days #5 tabs 05/30/22 [Rx Last Taken 06/03/23] insulin glargine 100 unit/mL (3 mL) subcutaneous pen (Lantus Solostar U-100 Insulin) 10 unit subcut QPM 06/14/22 [History Last Taken 11/19/22] hydrocodone-acetaminophen 5-325mg 5mg-325mg 1 tab PO Q8H PRN pain 2 days #5 tabs 11/21/22 [Rx Last Taken Unknown] diltiazem HCl 180 mg capsule,extended release 24 hr 240 mg PO DAILY 11/28/22 [History Last Taken Unknown] hydralazine 50 mg tablet 25 mg PO TID 11/28/22 [History Last Taken Unknown] flash glucose scanning reader (Specific MediaStyle Yane 2 Burley) #1 ea 12/07/22 [Rx Last Taken Unknown] flash glucose sensor (FreeStyle Yane 2 Sensor kit) #2 ea 12/07/22 [Rx Last Taken Unknown] pantoprazole 40 mg tablet,delayed release 40 mg PO Q12H 12/10/22 [History Last Taken Unknown] ondansetron 4 mg disintegrating tablet 4 mg PO Q8H PRN PRN Nausea #10 tabs 03/17/23 [Rx Last Taken Unknown] clonidine HCl 0.3 mg tablet 0.3 mg PO 04/17/23 [History Last Taken Unknown] midodrine 5 mg tablet mg PO 04/17/23 [History Last Taken Unknown] Allergy/AdvReac Type Severity Reaction Status Date / Time metformin AdvReac Diarrhea Verified 06/03/23 10:17 Family History Mother Hypertension Father Cancer lymphoma, leukemia Emphysema of lung Hypertension Grandmother Diabetes CVA (cerebral vascular accident) Surgical History History of cholecystectomy History of esophagogastroduodenoscopy (EGD) History of mandibular surgery Hx of colonoscopy S/P arteriovenous (AV) fistula creation S/P arteriovenous (AV) fistula repair S/P arteriovenous (AV) graft repair S/P dialysis catheter insertion Social History household members: significant other housing: alf Smoking Status: Never smoker alcohol intake: never substance use type: does not use ROS <MARIE Bryant - Last Filed: 06/03/23 12:48> ROS ED Constitutional Constitutional ED: Denies chills or fever(s) Cardiovascular Cardiovascular: Denies chest pain Respiratory/Chest Respiratory/Chest: Denies cough or dyspnea Gastrointestinal Gastrointestinal: Denies abdominal pain, nausea or vomiting Genitourinary Genitourinary ED: Denies dysuria, hematuria or urinary frequency Musculoskeletal Musculoskeletal: Reports back pain Integumentary Denies rash Neurologic Neurologic: Denies paresthesias or weakness EXAM <MARIE Bryant - Last Filed: 06/03/23 12:48> Physical Exam Const Vital Signs: 06/03/23 10:18 06/03/23 12:06 Temperature 97.2 F L 97 F L Temperature Source Temporal Pulse Rate 86 85 Respiratory Rate 16 14 Blood Pressure 131/69 H 143/86 H Blood Pressure Mean 89 105 Pulse Ox 98 100 Oxygen Delivery Method Room Air Positive well nourished, well developed and no apparent distress General Appearance ED: well developed HEENT Reports normocephalic and head/scalp atraumatic Mouth ED: Yes moist mucous membranes normal Eyes PERRL and EOMs intact bilaterally Neck full ROM and supple Chest Wall inspection of chest normal Resp normal respiratory effort and clear to auscultation bilaterally Cardio regular rate and regular rhythm GI soft to palpation, non-tender, non-distended and no masses Back/Spine normal ROM, normal to inspection and no thoracic nor lumbar tenderness Back/Spine Narrative: No reproducible tenderness to patient's lower back with palpation, no step-offs. Extremity normal to inspection and full ROM Neuro oriented x3, CN's II-XII intact bilaterally, moves all extremities, no focal motor deficits and no sensory deficits noted Sensorium / Orientation: awake and alert Motor Exam: strength 5/5 throughout Deep Tendon Reflexes: Rt Patellar (L4): 2+, Lt Patellar (L4): 2+, Rt Ankle (S1): 2+ and Lt Ankle (S1): 2+ Deep Tendon Reflexes Back: Rt Patellar (L4): 2+, Lt Patellar (L4): 2+, Rt Ankle (S1): 2+ and Lt Ankle (S1): 2+ Psych mental status grossly normal and thought process normal Skin no rashes or lesions noted and no wounds <Dr. Claudio Jj MD - Last Filed: 06/03/23 15:05> Physical Exam Const Vital Signs: 06/03/23 10:18 06/03/23 12:06 Temperature 97.2 F L 97 F L Temperature Source Temporal Pulse Rate 86 85 Respiratory Rate 16 14 Blood Pressure 131/69 H 143/86 H Blood Pressure Mean 89 105 Pulse Ox 98 100 Oxygen Delivery Method Room Air MDM <MARIE Bryant - Last Filed: 06/03/23 12:48> [facility] Narrative Medical decision making narrative: Patient presenting with low back pain that started this morning when she woke up. She thinks that she may have slept wrong, pain is reproduced with movement, relieved with rest. I am unable to reproduce the pain by palpation alone, she does not have any midline tenderness. Neurological exam is unremarkable. Examination consistent with musculoskeletal back pain. She does not have any symptoms of cauda equina syndrome or spinal abscess, I do not feel that imaging is indicated at this time. She was given a Hewitt here for pain and is encouraged to continue taking her tramadol as needed can also take Tylenol as needed. Encouraged that she follow-up with her PCP. She will be discharged home in stable condition. She is comfortable with plan. Return instructions given. <Dr. Claudio Jj MD - Last Filed: 06/03/23 15:05> [facility] Narrative Medical decision making narrative: Patient presenting with low back pain that started this morning when she woke up. She thinks that she may have slept wrong, pain is reproduced with movement, relieved with rest. I am unable to reproduce the pain by palpation alone, she does not have any midline tenderness. Neurological exam is unremarkable. Examination consistent with musculoskeletal back pain. She does not have any symptoms of cauda equina syndrome or spinal abscess, I do not feel that imaging is indicated at this time. She was given a Hewitt here for pain and is encouraged to continue taking her tramadol as needed can also take Tylenol as needed. Encouraged that she follow-up with her PCP. She will be discharged home in stable condition. She is comfortable with plan. Return instructions given. I have personally performed a face to face assessment of the patient and have reviewed the VANCE Note. I performed a substantive portion of the visit including all aspects of the following. My richardson findings include: History is remarkable for low back pain at a local glides over the sacrum. She denies bowel bladder dysfunction. No saddle paresthesia or anesthesia. Denies radicular pain. She denies foot drop. She denies buckling of her knees going up and down steps. There is no history of trauma. She awoke with the pain. She believes she may have slept in an unusual position. She denies fever, chills night sweats. She denies recent dental procedure or any type of surgical procedure. She denies dysuria, frequency, urgency or hematuria. Exam is remarkable for tenderness over the sacrum. There is no evidence of cellulitis. She has normal sensation. Straight leg test is negative. EHLs intact. Sensation over L3-S1 dermatome is normal. DTR at the ankle was symmetric. Patella reflexes symmetric as well. Patient has lymphedema and her legs are wrapped. There is no tenderness on distribution deep venous system. There is no asymmetry noted. There is no leg vein distention. Medical Decision Making patient was treated with oral meds for her pain. Imaging is not indicated. Laboratory studies are not indicated. History is not consistent with urinary tract infection either. Other additions or changes: [None] Discharge Plan Triage Chief Complaint: Back ED Midlevel Provider: Amena Pang ED Provider: Claudio Jj Dx/Rx/DC Orders Clinical Impression: Back pain, Diabetes, CKD (chronic kidney disease), Peripheral vascular disease, Chronic anemia Instructions: ED Back Pain (Acute or Chronic) Prescriptions: No Action (DME) FreeStyle Yane 2 Burley Misc See Rx Instructions .Route Qty: 1 0RF Rx Instructions: As directed (DME) FreeStyle Yane 2 Sensor Kit See Rx Instructions .Route Qty: 2 6RF Rx Instructions: As directed hydralazine 50 mg tablet 25 mg PO TID diltiazem HCl 180 mg capsule,extended release 24hr 240 mg PO DAILY pantoprazole 40 mg tablet,delayed release (DR/EC) 40 mg PO Q12H midodrine 5 mg tablet PO clonidine HCl 0.3 mg tablet 0.3 mg PO atorvastatin 40 MG tablet 40 mg PO QHS aspirin 81 MG tablet,chewable 81 mg PO QHS insulin lispro [Humalog KwikPen Insulin] 100 unit/mL insulin pen 8 unit subcut TIDCM Rx Instructions: with meals sertraline 50 mg tablet 50 mg PO QHS polyethylene glycol 3350 17 gram powder in packet 17 g PO DAILY PRN (Reason: Constipation) omeprazole 20 mg Capsule,Delayed Release(Dr/Ec) 20 mg PO DAILY pregabalin 75 mg Capsule 75 mg PO BID Qty: 10 0RF calcium acetate(phosphat bind) 667 mg Capsule 667 mg PO TID tramadol 50 mg tablet 50 mg PO Q6H PRN (Reason: pain) 3 Days Qty: 5 0RF insulin glargine [Lantus Solostar U-100 Insulin] 100 unit/mL (3 mL) Insulin Pen 10 unit SUBCUT QPM ondansetron 4 mg tablet,disintegrating 4 mg PO Q8H PRN PRN (Reason: Nausea) Qty: 10 0RF hydrocodone-acetaminophen 5-325 mg tablet 1 tab PO Q8H PRN (Reason: pain) 2 Days Qty: 5 0RF Primary Care Provider: Dennys Serrano Referrals: Dennys Serrano MD [Primary Care Provider] - 3-5 Days if not improving Activity Restrictions/Additional Instructions: Please follow-up with your PCP. You can also take Tylenol for your pain as needed. Return for any worsening of your symptoms. Disposition Disposition: Home, Self Care Discharge Date/Time: 06/03/23 12:07
[2023-06-03] MEDS: HYDROcodone Bitartrate/Apap 5/325 Tablet PO (12:03)
[2023-06-03 12:06] VITALS: BP 143/86; PULSE 85; RESP 14; TEMP 36.1; O2SAT 100
--- OUTSIDE RECORDS SUMMARY | 2023-06-03 12:22 | XMS RPT_ITS | CCD ---
Author Name Unknown Address [address] [place] [address] [address] [place] [address] Organization [facility] Care Team Providers Care Sub Master Name Role Phone Dennys Baez MD Primary Care Provider [facility] Unavailable [facility], [place] Unavailable EMILY ROSALES Attending Unavailable DENNYS BAEZ Primary Care Unavailable NESTOR, DENNYS Olivares Primary Care Unavailable NESTOR, DENNYS Olivares Primary Care Unavailable GABRIELA SIDHU Attending Unavailable DENNYS BAEZ Primary Care Unavailable DENNYS BAEZ Attending Unavailable DENNYS BAEZ Referring Unavailable NESOTR, DENNYS Olivares Primary Care Unavailable DENNYS BAEZ Referring Unavailable NESTOR, DENNYS Olivares Primary Care Unavailable Usha PASTRANA Attending Unavailable DENNYS BAEZ Primary Care Unavailable GRANT JUÁREZ Attending Unavailable DENNYS BAEZ Primary Care Unavailable NESTOR, DENNYS Olivares Primary Care Unavailable DENNYS BAEZ Attending Unavailable BRIANNA MARTINEZ Referring Unavailable NESTOR, DENNYS Olivares Primary Care Unavailable AUBREE TERRY Referring Unavailable NESTOR, DENNYS Olivares Primary Care Unavailable AUBREE TERRY Referring Unavailable DENNYS BAEZ Primary Care Unavailable NESTOR, DENNYS Olivares Primary Care Unavailable NESTOR, DENNYS Olivares Primary Care Unavailable Usha PASTRANA Attending Unavailable DENNYS BAEZ Primary Care Unavailable NESTOR, DENNYS Olivares Primary Care Unavailable XENIA JAQUEZ Attending Unavailable JACQUIE COX Attending Unavailable DENNYS BAEZ Primary Care Unavailable Dennys Baez MD Primary Care Provider [phone] [facility] Unavailable [facility], [place] Unavailable Allergies Allergy Classification Reported Allergen(s) Allergy Type Date of Onset Reaction(s) Facility (20 sources) metFORMIN; Translations: [METFORMIN] Drug Allergy 10-09-2018 GI Upset [facility] Work Phone: Medications Current Medications Medication [...] / HYDROcodone bitartrate 5 mg oral tablet (15 sources) Opioid Agonist Start: 11-21-2022 HYDROcodone-acetami nophen [...] 3 02-06-2023 Chronic Congestive heart failure; nonhypertensive (13 sources) 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), 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[facility])] Onset: 2 Chronic Disorders of lipid metabolism (9 sources) Hyperlipidemia; Translations: [Hyperlipidemia, unspecified] Onset: 3 Chronic Esophageal disorders (4 sources) Gastroesophageal reflux disease without esophagitis; Translations: [...] for immunization] Onset: 3 Episodic Mood disorders (7 sources) Depressive disorder; Translations: [Depressive disorder] Onset: 3 02-27-2023 Chronic Nutritional deficiencies (20 sources) Malnutrition (calorie); Translations: [Moderate protein-calorie malnutrition] Onset: 9 10-29-2018 Chronic Occlusion or stenosis of precerebral arteries (6 sources) Carotid artery occlusion; Translations: [Occlusion and stenosis of unspecified carotid artery] Onset: 3 02-27-2023 Chronic Other aftercare (2 sources) Post-discharge follow-up; Translations: [Encounter for follow-up examination after completed treatment for conditions other than malignant neoplasm] Episodic Other diseases of bladder and urethra (1 source) Neurogenic bladder; Translations: [Neuromuscular dysfunction of bladder, unspecified] 05-28-2023 Chronic Other diseases of kidney and ureters (2 sources) Renal impairment; Translations: [Disorder of kidney and ureter, unspecified] Episodic Other diseases of veins and lymphatics (5 sources) Lymphedema; Translations: [Lymphedema, not elsewhere classified] Onset: 3 02-27-2023 Chronic Other eye disorders (1 source) Vitreous hemorrhage, bilateral; Translations: [Vitreous hemorrhage of both eyes (HCC)] Onset: 4 Chronic Other liver diseases (1 source) Elevated liver enzymes level; Translations: [Abnormal levels of other serum enzymes] 02-28-2023 Episodic Other nervous system disorders (20 sources) [...] Localized edema; Translations: [Bilateral leg edema] Onset: Episodic Superficial injury; contusion (2 sources) Contusion of left foot; Translations: [Contusion of left foot, initial encounter] Onset: 3 02-27-2023 Episodic Varicose veins of lower extremity (1 source) Skin ulcer; Translations: [Varicose veins of unspecified lower extremity with ulcer of unspecified site] 02-27-2023 Episodic Past or Other Problems Problem Classification Problem Date Documented Date Episodic/Chronic Conditions associated with dizziness or vertigo (4 sources) Vertigo; Translations: [Dizziness and giddiness] Onset: 02-17-2021 02-27-2023 Episodic Diabetes mellitus without complication (4 sources) Hyperglycemia; Translations: [Hyperglycemia, unspecified] Onset: 01-11-2022 02-27-2023 Episodic Malaise and fatigue (20 sources) Asthenia; Translations: [Other malaise] Onset: 10-28-2018 10-28-2018 Episodic Open wounds of extremities (7 sources) Impaired wound healing; Translations: [Unspecified open wound, left foot, initial encounter] Onset: 2022 Episodic Other and unspecified benign neoplasm (4 sources) History of polyp of colon; Translations: [Personal history of colonic polyps] Onset: 02-27-2023 02-27-2023 Episodic Other circulatory disease (20 sources) Orthostatic hypotension; Translations: [Orthostatic hypotension] Onset: 09-10-2012 12-02-2019 Episodic Other connective tissue disease (5 sources) History of osteomyelitis; Translations: [Personal history of other diseases of the musculoskeletal system and connective tissue] Onset: 02-27-2023 02-27-2023 Episodic Other lower respiratory disease (5 sources) Hypoxia; Translations: [Hypoxemia] Onset: 02-27-2023 Episodic Other nervous system disorders (20 sources) [...] 165.1 cm Dennys Baez MD Work Phone: [facility] 02-27-2023 15:12-0500 Body weight 66.04 kg Dennys Baez MD Work Phone: [facility] 02-27-2023 15:12-0500 Diastolic blood pressure 60 mm[Hg] Dennys Baez MD Work Phone: [facility] 02-27-2023 15:12-0500 Heart rate 67 /min Dennys Baez MD Work Phone: [facility] 02-27-2023 15:12-0500 SaO2% (BldA) [Mass fraction] 99 % Dennys Baez MD Work Phone: [facility] 02-27-2023 15:12-0500 Systolic blood pressure 106 mm[Hg] Dennys Baez MD Work Phone: [facility] 02-06-2023 11:56-0500 Body height 165.[address] [facility] 02-06-2023 11:56-0500 Body weight 66.[address] [facility] 02-06-2023 10:49-0500 Body height 165.1 cm [facility] Work Phone: [facility] 02-06-2023 10:49-0500 Body temperature 96.91 [degF] [facility] Work Phone: [facility] 02-06-2023 10:49-0500 Body weight 66.1 kg [facility] Work Phone: [facility] 02-06-2023 10:49-0500 Diastolic blood pressure 58 mm[Hg] [facility] Work Phone: [facility] 02-06-2023 10:49-0500 Heart rate 65 /min [facility] Work Phone: [facility] 02-06-2023 10:49-0500 SaO2% (BldA) [Mass fraction] 100 % [facility] Work Phone: [facility] 02-06-2023 10:49-0500 Systolic blood pressure 125 mm[Hg] [facility] Work Phone: [facility] 02-06-2023 10:28-0500 Body height 165.1 cm [facility] Work Phone: [facility] 02-06-2023 10:28-0500 Body temperature 96.91 [degF] [facility] Work Phone: [facility] 02-06-2023 10:28-0500 Body weight 66.09 kg [facility] Work Phone: [facility] 02-06-2023 10:28-0500 Diastolic blood pressure 58 mm[Hg] [facility] Work Phone: [facility] 02-06-2023 10:28-0500 Heart rate 65 /min [facility] Work Phone: [facility] 02-06-2023 10:28-0500 SaO2% (BldA) [Mass fraction] 100 % [facility] Work Phone: [facility] 02-06-2023 10:28-0500 Systolic blood pressure 125 mm[Hg] [facility] Work Phone: [facility] 2022 11:15-0400 Diastolic blood pressure 76 mm[Hg] Xenia Jaquez MANAGER [employer]ARD[employer]EST SCIENCE PROFESSOR Work Phone: [facility] 2022 11:15-0400 Heart rate 59 /min Xenia Jaquez MANAGER GARDEN.FOREST SCIENCE PROFESSOR Work Phone: [facility] 2022 11:15-0400 Respiratory rate 16 /min Xenia Jaquez MANAGER GARDEN.FOREST SCIENCE PROFESSOR Work Phone: [facility] 2022 11:15-0400 SaO2% (BldA) [Mass fraction] 97 % Xenia Jaquez MANAGER GARDEN.FOREST SCIENCE PROFESSOR Work Phone: [facility] 2022 11:15-0400 Systolic blood pressure 144 mm[Hg] Xenia Jaquez MANAGER GARDEN.FOREST SCIENCE PROFESSOR Work Phone: [facility] 06-22-2022 11:16-0400 Body weight 66.68 kg NA Pastrana PA-C Work Phone: [facility] 06-22-2022 11:16-0400 Diastolic blood pressure 76 mm[Hg] NA Pastrana PA-C Work Phone: [facility] 06-22-2022 11:16-0400 Heart rate 60 /min NA Pastrana PA-C Work Phone: [facility] 06-22-2022 11:16-0400 Respiratory rate 18 /min NA Pastrana PA-C Work Phone: [facility] 06-22-2022 11:16-0400 SaO2% (BldA) [Mass fraction] 97 % NA Pastrana PA-C Work Phone: [facility] 06-22-2022 11:16-0400 Systolic blood pressure 150 mm[Hg] NA Pastrana PA-C Work Phone: [facility] 06-07-2022 14:46-0500 Body temperature 97 [degF] NA Pastrana PA-C Work Phone: [facility] 06-07-2022 14:46-0500 Diastolic blood pressure 78 mm[Hg] NA Pastrana PA-C Work Phone: [facility] 06-07-2022 14:46-0500 Heart rate 62 /min NA Pastrana PA-C Work Phone: [facility] 06-07-2022 14:46-0500 Respiratory rate 20 /min NA Pastrana PA-C Work Phone: [facility] 06-07-2022 14:46-0500 SaO2% (BldA) [Mass fraction] 98 % NA Pastrana PA-C Work Phone: [facility] 06-07-2022 14:46-0500 Systolic blood pressure 157 mm[Hg] NA Pastrana PA-C Work Phone: [facility] 02-09-2022 11:33-0500 Body weight 90.72 kg Dennys Baez MD Work Phone: [facility] 02-09-2022 11:33-0500 Diastolic blood pressure 82 mm[Hg] Dennys Baez MD Work Phone: [facility] 02-09-2022 11:33-0500 Heart rate 75 /min Dennys Baez MD Work Phone: [facility] 02-09-2022 11:33-0500 SaO2% (BldA) [Mass fraction] 97 % Dennys Baez MD Work Phone: [facility] 02-09-2022 11:33-0500 Systolic blood pressure 172 mm[Hg] Dennys Baez MD Work Phone: [facility] 01-16-2022 12:34-0400 Diastolic blood pressure 88 mm[Hg] NA Pastrana PA-C Work Phone: [facility] 01-16-2022 12:34-0400 Systolic blood pressure 154 mm[Hg] NA Pastrana PA-C Work Phone: [facility] 01-16-2022 10:01-0400 Body weight 82.56 kg NA Pastrana PA-C Work Phone: [facility] 01-16-2022 10:01-0400 Heart rate 89 /min NA Pastrana PA-C Work Phone: [facility] 01-16-2022 10:01-0400 Respiratory rate 16 /min NA Pastrana PA-C Work Phone: [facility] 01-16-2022 10:01-0400 SaO2% (BldA) [Mass fraction] 98 % RODRIGUEZ Pastrana PA-C Work Phone: [facility] 06-30-2021 14:08-0400 Body height 165.1 cm Anthony Cortes MD Work Phone: [facility] 06-30-2021 14:08-0400 Body weight 84.37 kg Anthony Cortes MD Work Phone: [facility] 06-30-2021 14:08-0400 Diastolic blood pressure 78 mm[Hg] Anthony Cortes MD Work Phone: [facility] 06-30-2021 14:08-0400 Heart rate 78 /min Anthony Cortes MD Work Phone: [facility] 06-30-2021 14:08-0400 SaO2% (BldA) [Mass fraction] 99 % Anthony Cortes MD Work Phone: [facility] 06-30-2021 14:08-0400 Systolic blood pressure 173 mm[Hg] Anthony Cortes MD Work Phone: [facility] Encounters Encounter Date Encounter Type Care Provider Facility Start: 05-28-2023 Telephone encounter M Andrew Pastrana PA-C Work Phone: [facility] Procedures Date Procedure Procedure Detail Performing Clinician [...] Treatment Date Care Activity Detail Author Start: 05-01-2024 Annual 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 Team 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 Repairer ehsan Disease Visit Annual PCP Team Chronic Disease Visit [facility] Start: 05-01-2024 BP Controlled (<130/80) BP Controlle d (<130/80) [facility] Start: 05-01-2024 Hepatitis A Vaccine (1 of 2 - Risk 2-dose series) Hepatitis A Vaccine (1 of 2 - Risk 2-dose series) [facility] Immunizations Immunization Date Immunization Notes Care Provider Fa cility 05-01-2023 pneumococcal conjuga te (PCV20) vaccine, 20 valent (PREVNAR 20) RODRIGUEZ Pastrana PA-C Work Phone: [facility] 03-01-2023 COVID-19 vaccine, ag e 12+ yr, season (PFIZER-BIONTECH) Dennys Baez MD Work Phone: [facility] 02-27-2023 COVID-19 vaccine, ag e 12+ yr, season (PFIZER-BIONTECH) RODRIGUEZ Pastrana PA-C Work Phone: [facility] 01-17-2023 influenza, injectabl e, quadrivalent, preservative free Dennys Baez MD Work Phone: [facility] 01-16-2022 COVID-19 booster vaccine, age 12+ yr, bivalent (PFIZER-BIONTECH) RODRIGUEZ Pastrana PA-C Work Phone: [facility] 01-07-2022 influenza, injectabl e, quadrivalent, preservative free Dennys Baez MD Work Phone: [facility] 01-07-2022 influenza, seasonal, injectable Dennys Baez MD Work Phone: [facility] 01-07-2022 influenza virus vacc ine, unspecified formulation Dennys Baez MD Work Phone: [facility] 02-15-2021 influenza, injectabl e, quadrivalent, preservative free Dennys Baez MD Work Phone: [facility] 02-15-2021 influenza, seasonal, injectable Dorita Pimentel RN [facility] 02-15-2021 influenza, seasonal, injectable, preservative free Dennys Baez MD Work Phone: [facility] 05-30-2020 influenza, injectabl e, quadrivalent, contains preservative Dennys Baez MD Work Phone: [facility] 12-16-2018 influenza, injectabl e, quadrivalent, contains preservative Dennys Baez MD Work Phone: [facility] 01-12-2009 pneumococcal polysaccharide vaccine, 23 valent Dennys Baez MD Work Phone: [facility] Work Phone: 01-12-2009 tetanus toxoid, redu eliseo diphtheria toxoid, and acellular pertussis vaccine, adsorbed Dennys Baez MD Work Phone: [facility] Work Phone: 12-01-1999 tetanus and diphther ia toxoids, adsorbed, preservative free, for adult use (2 Lf of tetanus toxoid and 2 Lf of diphtheria toxoid) Dennys Baez MD Work Phone: [facility] 02-02-1979 diphtheria and tetan us toxoids, adsorbed for pediatric use Dennys Baez MD Work Phone: [facility] Payers Date Payer Category Payer Medicaid [employer] [id number] 2020-Present [phone] [address] [place] [address] Medicaid [id number] 2020 Medicaid [id number] 2020 Medicaid [id number] 2020 Medicare [id number] 2020 Unknown [facility] [id number] 2020-Present [phone] [address] [place] [address] [facility] [id number] 2008 Unknown [id number] Social History Date Type Detail Facility Start: 01-18-2012 End: 02-09-2022 Tobacco smoking status NHIS Never smoked tobacco [facility] Work Phone: Start: 06-19-2021 End: 05-01-2023 Alcohol intake Current non-drinker of alcohol (finding) [facility] Start: 1960 Sex Assigned At Not on file [facility] Start: 06-19-2021 End: 06-30-2021 Exposure to SARS-CoV-2 (event) Not sure [facility] Start: 01-18-2012 End: 02-09-2022 Tobacco use and exposure Smokeless tobacco non-user [facility] Start: 12-19-2021 End: 12-29-2021 Exposure to SARS-CoV-2 (event) Unable to assess [facility] Work Phone: Start: 10-28-2018 End: 2022 History of Social function [facility] Start: 10-28-2018 End: 2022 Tobacco use panel [facility] National Score (1-100), lower number is lower risk 48 [facility] Medical Equipment Procedure Code Equipment Code Equipment Origin al Text Equipment Identifier Dates Start: 09-23-2018 End: 11-08-2021 Goals Date Patient Goal Desired Activity /State Personal health goal Clinical Notes 11-01-2018 to 05-28-2023 Telephone Encounter - Katerine Vaughan LPN - 05/28/2023 5:19 PM ESTTelephone Encounter - Bharati Mas LPN - 05/28/2023 10:05 AM Dennys Swift MD - 02/27/2023 3:12 PM EST Note Date & Type Note Facility 05-28-2023 Miscellaneous Notes Order faxed to number provided. Pt calls to report she needs a new order for pull ups -Large sent to [facility] Spoke to Christine at [facility] to get . Hcristine reports the dx on the last order was: R19.7, E11.43, K31.84. Christine reports last OV notes need to be faxed with the order. Call [phone] with any questions. Unable to find previous order. Bharati Mas LPN documented in this encounter [facility] 05-01-2023 Note HNO ID: [id number] Author: DENNYS BAEZ MD Service: ? Author [...] Needs cataract surgery. Does not want in [place]. Would like referral to [facility] to see someone there and have done here in [place]. DM: has seen Dr Carbajal. Sugars have [...] by mouth as (more content not included)... [facility] 04-10-2023 Note HNO ID: [id number] Author: GRANT JUÁREZ MD Service: ? Author [...] agree with all of its relevant components. [facility] 03-01-2023 Miscellaneous Notes Spoke with pt. She did not want to schedule at this time and said she would call back if she decides to get this test done PSS can you please help set up a carotid doppler. Set up carotid doppler Nothing in [facility] records showing any CTA or Carotid doppler. Ceci Richard Can we check in [facility] records and see if we can find the last time a carotid artery study, either cta or carotid doppler was done. documented in this encounter [facility] 02-28-2023 Miscellaneous Notes Patient informed and verbalized understanding. Ceci Richard Labs are good except for liver enzymes are up slightly. Recheck liver panel in two weeks. documented in this encounter [facility] 02-27-2023 Note HNO ID: [id number] Author: Kenia Hinton RT(R) Service: ? Author Type: Internal Medicine Doctor Type: Progress Notes Filed: 02/27/2023 5:24 PM [...] RT Rosalind(R) February 27, 2023 5:24 PM [facility] 02-27-2023 Note HNO ID: [id number] Author: Dennys Baez MD Service: ? Author [...] subcutaneously daily at bedtime. flash glucose sensor (ZupplerYLE KRISTA 14 DAY SENSOR) kit Use four [...] mouth twice daily. flash glucose scanning reader (Happiest MindsSTYLE KRISTA 14 DAY READER) 1 Each four [...] 81 mg chewabl (more content not included)... [facility] 02-27-2023 History of Presen t illness Narrative [...] [facility]. [facility]: Checking sugars multiple times a [...] mouth twice daily. flash glucose scanning reader (Clickyreserva KRISTA 14 DAY READER) 1 Each four [...] GI Upset PAST MEDICAL HISTORY Diagnosis Date 09/2008 - from fall at work Diabetes [...] Never done Influenza Vaccine(1) was done Covid-19 Vaccine( - 2022- season) due on 11/30/2022 Colorectal Cancer Screening [...] vaccination - ICD9: V05.9, ICD10: Z23 - [employer] COVID-19 VACCINE (2022-24 SEASON) AGE 12+ YR 17. Venous stasis [...] Dennys Baez MD documented in this encounter [facility] documented as of this encounter (statuses as of 02/28/2023) [facility] History of Past illness Narrative* Problem Noted Date Diagnosed Date Resolved Date Angioedema 02/27/2023 02/27/2023 02/27/2023 Anterior epistaxis 02/27/2023 02/27/2023 3 Diarrhea 02/27/2023 02/27/2023 02/27/2023 Fall 02/27/2023 02/27/2023 02/27/2023 Headache 02/27/2023 02/27/2023 02/27/2023 History of cardiovascular disorder 02/27/2023202202/27/2023 Hypoglycemia 02/27/2023 02/27/2023 02/27/2023 Impairment of balance 02/27/2023 02/27/20232022 Osteomyelitis 02/27/2023 02/27/2023 02/27/2023 Postoperative hemorrhage 02/27/2023 02/27/2023 Colitis 02/27/2023 02/27/2023 02/27/2023 Sepsis 02/27/2023 02/27/2023 02/27/2023 Adult failure to thrive 04/17/2022 02/27/202301/31 Dehydration 04/17/2022 02/27/2023 02/27/2023 Coffee ground emesis 03/31/2022 02/27/2023 023 Cellulitis of lower extremity 03/21/2022 02/27/2023 02/27/2023 Nausea and vomiting 03/17/2022 02/27/2023 02/28/20 23 Injury of kidney 03/06/2022 02/27/2023 02/27/2023 halfway current use of insulin 02/28/2022 02/28/20 23 [...] at least twice a week Neurology at [facility] recently discontinued Maxalt (triptans) due to history of CVA Neurology following PLAN: Hopefully headaches will improve with decreased BP Started on Diltiazem CD daily for HTN and may help with Migraine prophylaxis documented as of this encounter (statuses as of 03/01/2023) [facility] History of Past illness Narrative* Problem [...] 02/27/2023 02/27/2023 Adult failure to thrive 04/17/2022 02/27/202301/31 Dehydration 04/17/2022 02/27/2023 02/27/2023 Coffee ground emesis 03/31/2022 02/27/2023 023 Cellulitis of lower extremity 03/21/2022 02/27/2023 02/27/2023 Nausea and vomiting 03/17/2022 02/27/2023 02/28/20 23 Injury of kidney 03/06/2022 02/27/2023 02/27/2023 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 02/28/2022 02/28/20 23 [...] acute rehab and patient was accepted [facility] - transfer was delayed by orthostasis [...] at least twice a week Neurology at [facility] recently discontinued Maxalt (triptans) due to history of CVA Neurology following PLAN: Hopefully headaches will improve with decreased BP Started on Diltiazem CD daily for HTN and may help with Migraine prophylaxis documented as of this encounter (statuses as of 03/01/2023) [facility] History of Past illness Narrative* Problem Noted Date Diagnosed Date Resolved Date Angioedema 02/27/2023 02/27/2023 02/27/2023 Anterior epistaxis 02/27/2023 02/27/2023 Depressive disorder 02/27/2023 02/27/2023 05/01/19 24 Diarrhea 02/27/2023 02/27/2023 02/27/2023 Fall 02/27/2023 02/27/2023 02/27/2023 Headache 02/27/2023 02/27/2023 02/27/2023 History of cardiovascular disorder 02/27/2023202202/27/2023 Hypoglycemia 02/27/2023 02/27/2023 02/27/2023 Impairment of balance 02/27/2023 02/27/20232022 Osteomyelitis 02/27/2023 02/27/2023 02/27/2023 Postoperative hemorrhage 02/27/2023 02/27/2023 Colitis 02/27/2023 02/27/2023 02/27/2023 Sepsis 02/27/2023 02/27/2023 02/27/2023 Syncope 11/21/2022 05/01/2023 05/01/2023 Adult failure to thrive 04/17/2022 02/27/202301/31 Dehydration 04/17/2022 02/27/2023 02/27/2023 Coffee ground emesis 03/31/2022 02/27/2023 023 Cellulitis of lower extremity 03/21/2022 02/27/2023 02/27/2023 Nausea and vomiting 03/17/2022 02/27/2023 02/28/20 Injury of kidney 03/06/2022 02/27/2023 02/27/2023 halfway current use of insulin 02/28/2022 02/28/20 23 [...] infection, site not specified 02/17/2021 02/27/2023 02/27/2023 Vertigo 02/17/2021 02/27/2023 05/01/2023 Symptom of syncope 11/03/2018 02/27/2023 Latent autoimmune diabetes i n adults [...] acute rehab and patient was [facility] - transfer was delayed by orthostasis Hypokalemia [...] at least twice a week Neurology at [facility] recently discontinued Maxalt (triptans) due to history of CVA Neurology following PLAN: Hopefully headaches will improve with decreased BP Started on Diltiazem CD daily for HTN and may help with Migraine prophylaxis documented as of this encounter (statuses as of 05/29/2023) [facility]11-27-2023 Miscellaneous Notes* Telephone Encounter - Evangelina [...] Not applicable Please advise. Thank you. Evangelina Hui RN. documented in this encounterCinc[facility]11-15-[facility]23 Miscellaneous Notes* Telephone Encounter - Janessa Perez LPN - 02/13/2023 12:38 PM EST Maria A with [facility] calling to let you know she opened pt with intermediate today 02-13-23. Pt has areas of bad edema and blisters and they will use adaptic and pressure dressing withace wraps 2 times a week till pt is seen at the Wound Center. Only need to call back if there is a problem or concern. Janessa Perez LPN documented in this encounterCinc[facility]11-10-2023 NoteHNO ID: [id number] Author: Gabriela Sidhu APRN.FOREST SCIENCE PROFESSOR Service: ? Author Type: Nurse Practitioner Type: Progress Notes Filed: 02/08/2023 1:46 PM Note Text: 02/08/2023 Patient presents with: Recheck: Lower extremity edema and wounds SUBJECTIVE: This is a 62 year old that is here today for Above Complaints.. Has wound to legs and cannot get into the [facility] at [facility] until March. Having diffiulty with transportation and [...] distress, well-hydrated, well no (more content not included)...[facility]11-09-2023 Miscellaneous Notes* Telephone Encounter - Vale Frias [...] advise, Jannette Fernandez RN documented in this encounterCinc[facility]11-08-2023 NoteHNO ID: [id number] Author: Amy Barrios RN Service: ? Author Type: Registered Nurse Type: Progress Notes Filed: 02/06/2023 12:44 PM Note Text: Patients evaluation deferred [facility] surgeonOhio [facility]11-08-2023 Note HNO ID: [id number] Author: Emily Rosales RD Service: ? Author [...] getting sauces on the side, asking your server assistant to have less salt added to your meal, and limit your portion. While on dialysis, your body needs more protein. Include protein each time you eat. Eggs, yogurt, nuts/nut butters, seeds, meat/fish/poultry, cheese, cottage cheese, and yogurt all contain protein. Consider using a protein shake if this is suggested by your dialysis dietitian (such as Rock or Twist). Continue to limit sources of potassium and [...] DATE: February 06, 2023 TIME: 11:56 AM PAGER:[facility]11-08-2023 NoteHNO ID: [id number] Author: Trent Jewell MD Service: ? Author Type: Physician Type: Progress Notes Filed: 02/06/2023 3:45 PM Note Text: [facility] Transplant Evaluation CC: Consultation for Kidney transplant evaluation. Referred by: Aubree Duenas) [address] [address] Name of Dialysis Facility: [facility] 06-09-22 T,Th,Sa I will communicate with the [...] by mouth once daily. flash glucose sensor (Happiest MindsSTYLE KRISTA 14 DAY SENSOR) kit Use four [...] Insulin: Yes Lancets thomas (more content not included)...[facility]11-08-2023 History of Present illness Narrative* Amy Barrios RN - 02/06/2023 12:43 PM EST Patients evaluation deferred by surgeon documented in this encounterCincinnati [facility]rin[facility]11-08-2023 NoteHNO ID: [id number] Author: Yarely Gunderson LSW Service: ? Author Type: Certified Dental Assistant Type: Progress Notes Filed: 02/06/2023 3:13 PM Note Text: PSYCHOSOCIAL EVALUATION FOR KIDNEY TRANSPLANT Patient was medically declined at this time for transplant - please see transplant Urology evaluation. REFERRAL: Layne Sprague was referred to Social Work for a psychosocial evaluation to establish if she would be a suitable candidate to receive a kidney transplant. Race/Gender: White, Female White [] Descent [][place] or []North (non-Black) []White: Other [x]White: Not [...] long distances. IDENTIFYING INFORMATION/LIVING SITUATION Layne Sprague [id number] [address] [place] [address]. The home is a [address] [facility]. The patient used insurance transportation to get to the appointments today. Household members: Patients significant other (been together since 2007) There is 1 licensed drivers in the home and 1 working vehicles (patients significant other). The patient stopped driving in 2019 due to health issues. Are you aware that all post-transplant appointments will be at [facility]? Yes. How do you plan to come to the [facility] after transplant? The patient is unsure who [...] 10 years ago. She started seeing a machine operator assistant a year ago. HEALTH Pregancies (females): No [...] or because of side-effects? No Transplant social economist encouraged the patient to work on becoming [...] History of psychiatric hospitalization: No Transplant social economist asked the patient if she feels safe at home: Yes Is a referral to Transplant Psychiatry indicated for further evaluation or screening: No EDUCATION Highest Educational Level: Some college Reading/Comprehension Problems Then or Now: No HEALTH INSURANCE/FINANCIAL Medical Insurance: [place] Medicare and [employer] Medicaid Payer of Insurance: Patient Pr (more content not included)...[facility]11-08-2023 Instructions* Patient Instructions* Emily Rosales RD - [...] getting sauces on the side, asking your server assistant to have less salt added to your meal, and limit your portion. While on dialysis, your body needs more protein. Include protein each time you eat. Eggs, yogurt, nuts/nut butters, seeds, meat/fish/poultry, cheese, cottage cheese, and yogurt all contain protein. Consider using a protein shake if this is suggested by your dialysis dietitian (such as Rock or Roll20 Renal). Continue to limit sources of potassium and phosphorus as per your dialysis RD Stay active if able. Aim for 150 minutes of exercise per week. documented in this encounterCincinnati [facility]rin[facility]11-08-2023 History of Present illness Narrative* Emily [...] getting sauces on the side, asking your server assistant to have less salt added to your meal, and limit your portion. While on dialysis, your body needs more protein. Include protein each time you eat. Eggs, yogurt, nuts/nut butters, seeds, meat/fish/poultry, cheese, cottage cheese, and yogurt all contain protein. Consider using a protein shake if this is suggested by your dialysis dietitian (such as Rock or Alysha [employer] Renal). Continue to limit sources of potassium [...] TIME: 11:56 AM PAGER: documented in this encounterCincinnati [facility]11-08-2023 History of Present illness Narrative* Trent Jewell MD - 02/06/2023 11:55 AM EST Images from the original note were not included. [facility] Transplant Evaluation CC: Consultation for Kidney transplant evaluation. Referred by: Aubree Terry (Janie) [address] [address] Name of Dialysis Facility: [facility] 06-09-22,, I will communicate with the referring provider [...] by mouth once daily. flash glucose sensor (Happiest MindsSTYLE KRISTA 14 DAY SENSOR) kit Use four [...] twice daily. Hold for systolic BP insulin lispro (HUMALOG KWIKPEN INSULIN) 100 unit/mL [...] mouth twice daily. flash glucose scanning reader (Happiest MindsSTYLE KRISTA 14 DAY READER) 1 Each four [...] Mammogram: needs updated Colonoscopy: will obtain form [facility] Sensitizations: Prior transplant: No Blood transfusions: Yes : No Rabbit: No Immunizations: HBV series: Receiving series at dialysis Pneumovax: Not received, patient encouraged to obtain Influenza vaccine: Received, date 01/07/22 Covid vaccine: Received, date 01/16/22, 09/07/20, 08/10/20 Amy Barrios BSN, RN BP 125/58 Pulse 65 Temp 36.1 [...] which included preparing to see the patient, [id number]-[id number] patient care, completing clinical documentation, obtaining and/or reviewing separately obtained history, performing a medically appropriate examination, counseling and educating the pat ient/family/caregiver, ordering medications, tests, or procedures, communicating with other HCPs (not separately reported), independently interpreting results (not separately reported), communicatingresults to the patient/family/caregiver, and care coordination (not separately reported). Trent Jewell MD documented in this encounterCinc[facility]11-08-2023 NoteEducation (DTBAMN) LAYNE SPRAGUE ([id number]) 1960 F Date Time Provider Department 02/06/23 [...] for Encounter Date Provider Department Center 02/06/2023 [id number] ROSALES [facility] B[facility] Encounter Status:Closed by EMILY ROSALES on 02/06/23[facility] 02-06-2023 History of Present illness Narrative* Yarely [...] transplant. Race/Gender: White, Female White [] Descent [][place] or [][place] (non-Black) []White: Other [x]White: Not Specified/Unknown U.[place]. Citizen: Yes DIALYSIS START DATE: May 2022 The name of the dialysis unit is [facility]. This social work psychosocial evaluation was [...] long distances. IDENTIFYING INFORMATION/LIVING SITUATION Layne Sprague [phone] [place] [address]. The home is a [address] [facility]. The patient used insurance transportation to get to the appointments today. Household members: Patients significant other (been together since 2007) There is 1 licensed drivers in the home and 1 working vehicles (patients significant other). The patient stopped driving in 2019 due to health issues. Are you aware that all post-transplant appointments will be at [facility]? Yes. How do you plan to come to the [facility] after transplant? The patient is unsure who [...] 10 years ago. She started seeing a machine operator assistant a year ago. HEALTH Pregancies (females): No [...] or because of side-effects? No Transplant social economist encouraged the patient to work on becoming [...] History of psychiatric hospitalization: No Transplant social economist asked the patient if she feels safe at home: Yes Is a referral to Transplant Psychiatry indicated for further evaluation or screening: No EDUCATION Highest Educational Level: Some college Reading/Comprehension Problems Then or Now: No HEALTH INSURANCE/FINANCIAL Medical Insurance: [facility] Medicare and [facility] Medicaid Payer of Insurance: Patient Prescription Coverage: Medicaid Insurance Policy Hilario: Patient Medicare Status: Medicare - linked through disability Employment status: Disability ($1900 per month). She started receiving disability in 2018. Prior tothis she worked for a company, [employer], doing [employer] work. Household Income: $1900 per month The [...] years old and he works at a [employer]. Contact Number: [phone] Health Status and Availability of Caregiver: good health, per patient can take time off of work Valid Humidifier Operator's License/Working Vehicle: Yes, yes Caregiver Substance Use: No Caregiver Mental Health: No Secondary Caregiver: . Contact Number: . Health Status and Availability: . Valid Humidifier Operator's License/Working Vehicle: . Caregiver Substance Use: . [...] the area - [facility] (5 days a week, 3 hours a [...] the phone number of the transplant social economist to address future concerns. Yarely Gunderson, TL, SHIFT FOREMAN, CCTSW Transplant Certified Dental Assistant documented in this encounterCinc[facility]11-08-2023 NoteHNO ID: [id number] Author: Dorita Pimentel RN Service: ? Author [...] and [facility] outcomes from the most recent [facility] center-specific report; a copy of the program [...] about Kidney Allocation Policy -Directions to access [facility]'s data through the [facility] website. -Informed Consent for Transplant Program Participation patient education packet -National Kidney Registry pamphlet -Covid-19 Vaccination for Transplant Candidates Method of Instruction: Group class instruction Written instruction - handouts Verbal instruction Computer Patient/Family Response: Pt denied having having any questions Follow-Up Plan: Complete - No need for follow-up Referral/Recommendation: None Dorita Pimentel RN Pre-Transplant CoordinatorOhio [facility]11-08-2023 History of Present illness Narrative* Dorita Pimentel [...] and [facility] outcomes from the most recent [facility] center-specific report; a copy of theprogram summary [...] about Kidney Allocation Policy -Directions to access [facility]'s data through [facility] website. -Informed Consent for Transplant Program Participation patient education packet -National Kidney Registry pamphlet -Covid-19 Vaccination for Transplant Candidates Method of Instruction: Group class instruction Written instruction - handouts Verbal instruction Computer Patient/Family Response: Pt denied having having any questions Follow-Up Plan: Complete - No need for follow-up Referral/Recommendation: None Dorita Pimentel RN Pre-Registrar Museum documented in this encounterCinc[facility]11-03-2023 NoteHNO ID: [id number] Author: Jacquie Cox OD Service: ? Author Type: VAN CDL DRIVER Type: Progress Notes Filed: 02/01/2023 2:37 PM [...] Patient agreed to see Dr. Juárez in [place] (if able to find ride) next available 2. Combined forms of age-related cataract of both eyes + visually significant Monitor 3. Refractive error Finalized spec rx with some vision improvement Follow-up with Dr. Juárez in [place] for PDR Jacquierebecca Cox, OD February 01, 2023 2:30 [facility]11-03-2023 History of Present illness Narrative* Kenny, Jacquie Bauer, OD - 02/01/2023 2:30 PM EDT 1. [...] Patient agreed to see Dr. Juárez in [place] (if able to find ride) next available 2. Combined forms of age-related cataract of both eyes + visually significant Monitor 3. Refractive error Finalized spec rx with some vision improvement Follow-up with Dr. Juárez in [place] for PDR Jacquie Cox, OD February 01, 2023 2:30 PM documented in this encounterCincinnati [facility]rin[facility]10-27-2023 NotePatient Outreach (LUISNAV) LAYNE SPRAGUE ([id number]) 1960 F Date Time Provider Department 01/25/23 KAYLA CARVAJAL During your visit today, we recorded the following information about you: Kayla Carvajal, [facility] 01/25/2023 12:01 PM Signed POPULATION HEALTH NAVIGATION OUTREACH Action/FYI Pt due [...] Care Gap or Scheduling/Wellness visits Payer: Payor: [employer] AND BLUE SHIELD / Plan: Itaro HMO / Product Type: HMO / Care [...] Visit: Population Health Navigation Outreach [3910] Cmt: Na care gaps Prescriptions as of 01/25/2023 - cloNIDine HCl [...] twice daily. - flash glucose scanning reader (Happiest MindsSTi-Optics KRISTA 14 DAY READER) 1 Each four times d (more content not included)...[facility] 01-25-2023 NoteHNO ID: [id number] Author: Kayla Carvajal PSS Service: ? Author Type: ? Type: Progress Notes Filed: 01/25/2023 12:01 PM Note Text: POPULATION HEALTH NAVIGATION OUTREACH Action/ Pt due [...] Gap or Scheduling/Wellness visits Payer: Payor: NA [employer] Records AND trueEX / Plan: [employer]Same HMO / Product Type: HMO / Care [...] Vaccine(1) due on 11/30/2022 Covid-19 Vaccine( - season) due on 11/30/2022 Colorectal Cancer Screening due on 12/24/2022 Dilated Retinal Exam due on 02/09/2023 Navigation Signature: MONTEZ Mccarthy January 25, 2023 8:33 [facility]10-27-2023 History of Present illness Narrative* Kayla Carvajal, PSS - 01/25/2023 8:33 AM EDT POPULATION [...] Gap or Scheduling/Wellness visits Payer: Payor: NA [employer] Records AND trueEX / Plan: Itaro HMO / Product Type: HMO / Care [...] Influenza Vaccine(1) due on 11/30/2022 Covid-19 Vaccine( season) due on 11/30/2022 Colorectal Cancer Screening due on 12/24/2022 Dilated Retinal Exam due on 02/09/2023 Navigation Signature: MONTEZ Mccarthy January 25, 2023 8:33 AM documented in this encounterCinc[facility]10-13-2023 Miscellaneous Notes* Telephone Encounter - Marie [...] and advise. Marie Porter documented in this encounterCinc[facility]08-30-2023 NoteHNO ID: [id number] Author: Dorita Pimentel RN Service: ? Author Type: Registered Nurse Type: Progress Notes Filed: 11/28/2022 11:51 AM Note Text: Hx: uses rollator; 02/14/22 ECHO/EF 45% New Referral Referring Physician Aubree Terry Organ Type kidney ESRD Yes. Cause: DM/HTN Dialysis Dependant? Yes Name of Dialysis Facility: [facility] 06-09-22 ,, Diabetes Yes. Diagnosed at age 52 and [...] appointment Dorita Pimentel RN Pre-Kidney AND Pancreas Registrar Museum [facility]07-26-2023 Miscellaneous Notes* Telephone Encounter - Korin Norman [...] all Transfusions, Willing to accept? Yes Dialysis? [facility]? Start date? 06/09/2022 Referring doctor? AUBREE TERRY [...] dependent? Yes Hypoglycemic unawareness? No Hypertension? CAD? [place]? CABG/STENTS? Yes No No No Stress? Echo? Cath? Yes Yes No DVT/PE? No CVA/TIA? No Lupus? No Sickle/Trait? NA Blood thinner? No ETOH? Drug use? Psych disorder? No No No Prior Surgeries? Cath - chest uses for dialysis at this time, Fistula (L) Arm (See Epic) Living Donors? No documented in this encounterCinc[facility]07-19-2023 Miscellaneous Notes* Telephone Encounter - Jannette Fernandez RN - 10/17/2022 1:49 PM EDT Last Office Visit: 2022 Future Office Visit: 12/24/2022 Requested Prescriptions Pending Prescriptions Disp Refills atorvastatin (LIPITOR) 40 mg tablet 30 tablet 11 Sig: Take 1 tablet by mouth daily at bedtime. documented in this encounterCinc[facility]07-10-2023 Miscellaneous Notes* Telephone Encounter - Da [...] and advise. Linda Barrientos documented in this encounterCinc[facility]06-28-2023 Miscellaneous Notes* Telephone Encounter - Kathie Lewis LPN - 09/26/2022 5:27 PM EDT Order & JACK notes faxed to [phone] via [employer] as requested. Kathie Lewis LPN * Telephone Encounter - Xenia Jaquez APRN.CNP - 09/26/2022 5:15 PM EDT Script printed. Please fax to location of patient preference. Xenia Jaquez APRN.CNP * Telephone Encounter - Katerine Vaughan LPN - 09/25/2022 3:39 PM EDT Form received from [facility] agency on aging and disabilities. Patient is receiving case management services, patient requesting the following DME/HME item: Shower [employer] for this item needed and any relevant ukqt-we-mwwz chart notes faxed to [phone] Attn:Florentino Please review and advise documented in this encounterCinc[facility]06-21-2023 NoteHNO ID: [id number] Author: Xenia Jaquez APRN.FOREST SCIENCE PROFESSOR Service: ? Author Type: Nurse Practitioner Type: [...] directed. Take two (2) (more content not included)...[facility]06-21-2023 Instructions* Patient Instructions* Xenia Jaquez APRN.CNP - 2022 12:10 PM EDT Continue the same medications. We'll fax order to wound clinic. We'll check into the home health. 4. Follow-up w/ endocrinology. 5. Recheck in 3 months. documented in this encounterCinc[facility]rin[facility] Hospital06-21-2023 History of Present illness Narrative* Xenia [...] as needed for worsening/no improvement. Xenia Jaquez APRN.ADRIAN documented in this encounterCinc[facility]rin[facility] Hospital06-15-2023 Miscellaneous Notes* Telephone Encounter - Evangelina Hui RN - 09/13/2022 4:46 PM EDT [facility] calling for refill of Pantoprazole. Advised no longer on patient's medication list. Evangelina Hui RN documented in this encounterCinc[facility]05-09-2023 Miscellaneous Notes* Telephone Encounter - Kathie Lewis LPN - 08/07/2022 4:44 PM EDT Saniya from [employer] reports pt has both medicare & medicaid & she has a care plan with Na & if pcp wants to add anything to the care plan he can by calling [phone] Opt 3. Kathie Lewis LPN documented in this encounterCincinnati [facility]rin[facility]05-04-2023 NoteHNO ID: [id number] Author: Annie Gonzales MA Service: ? Author Type: Lead Assistant Manager Type: Progress Notes Filed: 08/02/2022 12:38 PM [...] Care Gap or Scheduling/Wellness visits Payer: Payor: [employer] AND trueEX / Plan: Itaro HMO / Product Type: HMO / Care [...] Annie Gonzales MA August 02, 2022 12:34 [facility]05-04-2023 NotePatient Outreach (NETNAV) LAYNE SPRAGUE ([id number]) 1960 F Date Time Provider Department 08/02/22 [...] Care Gap or Scheduling/Wellness visits Payer: Payor: [employer] AND trueEX / Plan: Itaro HMO / Product Type: HMO / Care [...] Dx: Type 2 (more content not included)... [facility]05-04-2023 History of Present illness Narrative* Annie Gonzales [...] Gap or Scheduling/Wellness visits Payer: Payor: NA [employer] Records AND trueEX / Plan: NA [id number] HMO / Product Type: HMO / Care [...] 02, 2022 12:34 PM documented in this encounterCinc[facility]rin[facility] Hospital04-27-2023 Miscellaneous Notes* Telephone Encounter - Vale Frias LPN - 07/26/2022 1:47 PM EDT Completed and faxed as requested. * Telephone Encounter - Ceci Richard - 07/26/2022 11:49 AM EDT Received certificate of medical necessity from [facility] for medicare and medicaid. Placed on Nestor's desk for review, completion and signature. Needs faxed back to [phone] Ceci Richard documented in this encounterCincinnati [facility]rin[facility] Hospital04-26-2023 NotePatient Outreach (INTMMN) LAYNE SPRAGUE ([id number]) 1960 F Date Time Provider Department 07/25/22 DENNYS BAEZ During your visit today, we recorded the following information about you: Allergies As of Date: 07/25/2022 Noted Allergy Reaction METFORMIN 10/09/2018 8 - GI Upset Date Reviewed: 02/09/2022 Reviewed by: Jacquie Cox OD - Fully Assessed Visit Diagnosis:Encounter for screening mammogram for breast cancer [Z12.31] Order(s):[facility] SCREENING [[id number]] Order #: [id number] FUTURE Prescriptions as of 07/30/2022 - cloNIDine [...] twice daily. - flash glucose scanning reader ([employer] KRISTA 14 DAY READER) 1 Each four [...] 10/31/2018 Malnutrition of moder (more content not included)...[facility] 07-25-2022 Miscellaneous Notes* Telephone Encounter - Vale Frias LPN - 07/25/2022 11:23 AM EDT Completed and faxed back. * Telephone Encounter - Ceci Richard - 07/24/2022 10:48 AM EDT Received CMN from [facility] for lift chair. Placed on Dr. Baez's desk for review, completion and signature. Needs faxed back to [phone]. Ceci Richard documented in this encounterCincinnati [facility]rin[facility] Hospital04-25-2023 Miscellaneous Notes* Telephone Encounter - Katerine Vaughan LPN - 07/24/2022 5:04 PM EDT Form faxed to [phone] number on form * Telephone Encounter - Dennys Baez MD - 07/24/2022 4:59 PM EDT completed * Telephone Encounter - Da Saucedo LPN - 07/23/2022 6:15 PM EDT Type of form: Physician's Orders Form received via fax When form is completed, Fax form to [phone] Form has been forwarded to Physician Mailbox: Dr. Nestor Saucedo LPN documented in this encounterCinc[facility] Hospital04-05-2023 Miscellaneous Notes* Telephone Encounter - Vale Frias LPN - 07/04/2022 12:25 PM EDT Completed and faxed. * Telephone Encounter - Da Saucedo LPN - 07/03/2022 9:39 AM EDT Type of form: Home Health Care Orders Form received via fax When form is completed, Fax form to [phone] Form has been forwarded to Physician Mailbox: Dr. Nestor Saucedo LPN documented in this encounterCincinnati [facility]rin[facility]04-03-2023 Miscellaneous Notes* Telephone Encounter - Evangelina Hui RN - 07/02/2022 5:05 PM EDT Patient calling to request referral to Endocrinology be faxed to Dr. Buddy Carbajal @ [facility]. Referral and OV notes sent with Demographic sheet. Evangelina Hui RN documented in this [facility]03-27-2023 Miscellaneous Notes* Telephone Encounter - Vale Frias LPN - 06/25/2022 12:31 PM EDT Left detailed message on [employer]. * Telephone Encounter - Dennys Baez MD - 06/25/2022 12:07 PM EDT ok * Telephone Encounter - Jannette Fernandez RN - 06/25/2022 11:59 AM EDT Marcus PT from [facility] Networks calls and states that they were unable to see patient for physical therapy evaluation last week. Marcus states that they need order to be able to see patient this week for physical therapy. Please review and advise, Jannette Fernandez RN documented in this encounterCincinnati Shrin[facility]03-25-2023 NotePatient Outreach (PHPOHE) LAYNE SPRAGUE ([id number]) 1960 F Date Time Provider Department 06/23/22 DENNYS BAEZ During your visit today, we recorded the following information about you: Nataly Soliselli Pharm-T 07/24/2022 3:00 AM Signed Layne Sprague is identified through a medication adherence outreach initiative based on pharmacy claims data from [employer] (insurer) for Statin medication(s). Patient is reviewed [...] patient: No answer; left generic VM Nataly Elise Cortelli Pharm-T Allergies As of Date: 06/23/2022 [...] 10/29/2018 Vertigo of central origin [H81.4] 04/24/2012 07/ (more content not included)... [facility]03-25-2023 NoteHNO ID: [id number] Author: Nataly Jones Service: ? Author Type: ? Type: Progress Notes Filed: 07/24/2022 3:00 AM Note Text: Layne Sprague is identified through a medication adherence outreach initiative based on pharmacy claims data from [employer] (insurer) for Statin medication(s). Patient is reviewed [...] No answer; left generic VM [facility] History of Present illness Narrative* Nataly Lakhani Pharm-T - 06/23/2022 11:10 AM EDT Layne Sprague is identified through a medication adherence outreach initiative based on pharmacy claims data from [employer] (insurer) for Statin medication(s). Patient is reviewed [...] VM Nataly Lakhani Pharm-T documented in this encounterCincinnati Shriners Hospital03-24-2023 NoteHNO ID: [id number] Author: Usha Pastrana PA-C Service: ? Author Type: Physician Manager Dairy Type: Progress Notes Filed: 06/22/2022 1:14 PM [...] type 1 (hcc) Ataxia Last episode with garbled a week [...] systolic and diastolic chf (congestive heart failure) ([facility]) Ckd (chronic kidney disease) stage 4, gfr 15-29 ml/min ([facility]) Hypertension Cardiovascular interval hx: [facility] cardiology 02/14/2022 echocardiogram [facility]: LV with mild concentric LVH, normal size, mild global left ventricular systolic dysfunction, EF 45%, diagnosis function indeterminate. RV size WNL LA and RA normal size 1+ MVi. mild TVi. PAP 37mmHg Normal great vessels, no pericardial effusion. 04/22/2019 stress test echo without contrast for chest pain at [facility]: EF 65%, no regional wall motion abnormalities, [...] diet? Yes If on (more content not included)...[facility]03-24-2023 Instructions* Patient Instructions* Usha Pastrana PA-C - 06/22/2022 12:[address] Buddy Carbajal [facility] Call for consult for endocrinology [phone] documented in this encounterCincinnati Shriners Hospital03-24-2023 History of Present illness Narrative* Usha [...] type 1 (hcc) Ataxia Last episode with gardestiny a week ago Each occurrence was with [...] systolic and diastolic chf (congestive heart failure) ([facility]) Ckd (chronic kidney disease) stage 4, gfr 15-29 ml/min ([facility]) Hypertension Cardiovascular interval hx: [facility] cardiology 02/14/2022 echocardiogram [facility]: LV with mild concentric LVH, normal size, mild global left ventricular systolic dysfunction, EF 45%, diagnosis function indeterminate. RV size WNL LA and RA normal size 1+ MVi. mild TVi. PAP 37mmHg Normal great vessels, no pericardial effusion. 04/22/2019 stress test echo without contrast for chest pain at [facility]: EF 65%, no regional wall motion abnormalities, [...] Anemia, chronic disease Malnutrition of moderate degree ([facility]) Physical debility Current medications: Ferrous sulfate 325 mg daily with breakfast None new from last visit. Depression? Current medications: Sertraline 50 mg daily Mood is fine Feels not the sme person Troubel focusing Starts something and doesn't complete, goes to something else. Tramadol: SO states not taking a night, once last week. Only when she asks. . Having wounds checked weekly with [facility]. Treated with Betadine. 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 Hold for systolic BP [id number] insulin glargine (LANTUS SOLOSTAR, BASAGLAR KWIKPEN) 100 [...] 1 Miscellaneous Medical Supply (BLOOD PRESSURE CUFF) [facility] Use as directed. 1 Each 0 [...] Type 2 DM - Uncontrolled E11.65 Insulin: [id number] Each 3 No current facility-administered medications for [...] proliferative retinopathy and macular edema, unspecified laterality ([facility]) - ICD9: 250.51, 362.07, 362.02, ICD10: E10.3519 - FREESTYLE KRISTA 14 DAY SENSOR KIT Complex history, non-compliance per Dr. Baez. 3. 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 Acute on chronic combined systolic and diastolic CHF (congestive heart failure) ([facility]) - ICD9: 428.43, 428.0, ICD10: I50.43 No evidence of CHF 5. CKD (chronic kidney disease) stage 4, GFR 15-29 ml/min (HCC) - ICD9: 585.4, ICD10: N18.4 - eGFR: [...] labs from last visit (external entry from [facility]) 8. Malnutrition of moderate degree (HCC) - ICD9: 263.0, ICD10: E44.0 Unclear as [...] procedure Usha Pastrana PA-C documented in this encounterCincinnati Shriners Hospital03-21-2023 NoteHNO ID: [id number] Author: Cory Cooper MD Service: ? Author Type: Physician Type: Progress Notes Filed: 06/19/2022 6:37 PM Note Text: Virtualist Progress Note Triage Call Triage source: Triage Call (Nurse Director Of Institutional Giving, [facility] Triage, [facility] Phone Triage) Was patient downgraded (i.e. disposition other than go to the ED was advised)? Yes Mode of contact (phone call, [employer], [employer], [employer], Skype, other): phone History/Physical Exam: Started [...] in as Primary Virtualist, Secondary Virtualist, or [facility] Telehealth provider: Secondary SIGNATURE: Cory Cooper MD PATIENT NAME: Layne Sprague DATE: June 19, 2022 [facility]03-21-2023 History of Present illness Narrative* Cory Cooper MD - 06/19/2022 6:17 PM EDT Virtualist Progress Note Triage Call Triage source: Triage Call (Nurse Director Of Institutional Giving, [facility] Triage, [facility] Phone Triage) Was patient downgraded (i.e. disposition other than go to the ED was advised)? Yes Mode of contact (phone call, [employer], [employer], [employer], [employer], other): phone History/Physical Exam: Started HD early [...] in as Primary Virtualist, Secondary Virtualist, or [facility] Telehealth provider: Secondary SIGNATURE: Cory Cooper MD PATIENT NAME: Layne Sprague DATE: June 19, 2022 documented in this encounterCincinnati Shriners Hospital03-21-2023 Miscellaneous Notes* Telephone Encounter - Jannette Khan RN - 06/19/2022 5:52 PM EDT Reason for Call: Returning Dr. Baez's office call related to loss of/garbled speech. Patient does not remember speaking with office today. Outcome: Recommended patient Go to ED NOW (or PCP triage), patient states she has a fiance at home,but no transportation, wishes to speak to PCP section hand helper, Dr. Cooper who recommended ED if she has another episode. Reason for Disposition [1] Loss of speech or garbled speech AND [2] sudden onset AND [3] brief (now gone) Answer Assessment - Initial Assessment Questions 1. SYMPTOM: - Loss of speech, unable to formulate thoughts, better today 2. ONSET: - 2 days ago and coming and going ever since 3. LAST NORMAL: - [place] normal on Saturday - Gradually building 4. [...] 11:30am 8. : N/A Protocols used: Neurologic [id number] documented in this encounterCincinnati Shriners Hospital03-21-2023 Miscellaneous Notes* Telephone Encounter - Jannette [...] expresses that she would like to see Community Service Technician Dr. Carbajal. Informed patient that demographic [...] advise, Jannette Fernandez RN documented in this encounterCincinnati Shriners Hospital03-21-2023 NotePatient Outreach (VTRIAG) LAYNE SPRAGUE ([id number]) 1960 F Date Time Provider Department 06/19/22 CORY COOPER During your visit today, we recorded the following information about you: Cory Cooper MD 06/19/2022 6:37 PM Signed Virtualist Progress Note Triage Call Triage source: Triage Call (Nurse Director Of Institutional Giving, [facility] Triage, [facility] Phone Triage) Was patient downgraded (i.e. disposition other than go to the ED was advised)? Yes Mode of contact (phone call, [employer], [employer], [employer], [employer], other): phone History/Physical Exam: Started HD early this month. The patient has had several episodes of garbled speech in the past 3 days. While at hemodialysis today, she had another episode, so the dialysis staff told her to contact her primary care provider. Review of of [facility] shows that she contacted her primary care [...] in as Primary Virtualist, Secondary Virtualist, or [facility] Telehealth provider: Secondary SIGNATURE: Cory Cooper MD PATIENT NAME: Layne Sprague DATE: June 19, 2022 Allergies As of Date: 06/19/2022 Noted Allergy Reaction METFORMIN 10/09/2018 8 - GI Upset Date Reviewed: 02/09/2022 Reviewed by: Jacquie Cox OD - Fully Assessed Reason for Visit: Virtualist [[id number]] Prescriptions as of 06/19/2022 - potassium chloride [...] needed (dizziness). - Miscellaneou (more content not included)...[facility] 06-07-2022 NoteHNO ID: [id number] Author: Usha Pastrana PA-C Service: ? Author Type: Physician Manager Dairy Type: Progress Notes Filed: 06/07/2022 8:05 PM Note Text: 61 year old female with c/o here for follow up Feeling a lot better since discharged from [facility], In home therapy and senior living care. PT, OT at home Not in [...] it often. Most recent lab work from [facility]: 05/30/2022 blood sugar 292 nonfasting. 05/04/2022 NA [...] care nurse. 04/14/2022 admitted through ER to [facility], transferred to transitional care unit 04/17/2022. 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 [facility]03-09-2023 Nurse Note* Nica Crockett Ma - 06/07/2022 2:49 PM EST Was not on tramadol while at [facility], but claims should still be on it. Says she had it taken away from her out of her purse while in the [facility]. documented in this encounterCincinnati Shriners Hospital03-09-2023 History of Present illness Narrative* Usha Pastrana PA-C - 06/07/2022 2:40 PM EST 61 year old female with c/o here for follow up Feeling a lot better since discharged from [facility], In home therapy and senior living care. PT, OT at home Not in [...] it often. Most recent lab work from [facility]: 05/30/2022 blood sugar 292 nonfasting. 05/04/2022 NA 139-K4.5-CL 103-CO2 23.0-AG 12-BUN 63-CRE 4.1, EGFR 12.GLU 188.CA 8.5 05/30/2022 right jugular dialysis catheter placed CXR confirmation, also noted nearly resolved pleural effusions and pulmonary infiltrates. Transferred from [facility] for rehab 05/04/2022 Transferred to extended care: [...] care nurse. 04/14/2022 admitted through ER to [facility], transferred to transitional care unit 04/17/2022. Initial [...] mouth twice daily. Hold for systolic BP [id number] insulin glargine (LANTUS SOLOSTAR, BASAGLAR KWIKPEN) 100 [...] 1 Miscellaneous Medical Supply (BLOOD PRESSURE CUFF) [facility] Use as directed. 1 Each 0 [...] Type 2 DM - Uncontrolled E11.65 Insulin: [id number] Each 3 No current facility-administered medications for [...] systolic and diastolic CHF (congestive heart failure) ([facility]) - ICD9: 428.43, 428.0, ICD10: I50.43 Resolved 3. CKD (chronic kidney disease) stage 4, GFR 15-29 ml/min ([facility]) - ICD9: 585.4, ICD10: N18.4 - eGFR: [...] proliferative retinopathy and macular edema, unspecified laterality ([facility]) - ICD9: 250.51, 362.07, 362.02, ICD10: E10.3519 [...] PCP Usha Pastrana PA-C documented in this encounterCincinnati Shriners Hospital03-06-2023 NoteHNO ID: [id number] Author: Ceci Richard Service: ? Author Type: ? Type: Progress Notes Filed: 06/04/2022 2:02 PM Note Text: Medication reconciliation post discharge from [facility] [place]. Ceci RichardOhio State [facility] Hospital03-06-2023 Miscellaneous Notes* Telephone Encounter - Ceci Richard [...] - 06/04/2022 11:18 AM EST Marcus with [facility] calling stating they will be picking patient up twice per week for three weeks for gait and fall training. He is also requesting a verbal order for OT evaluation. Please advise and call Marcus. documented in this encounterCincinnati Shriners Hospital03-06-2023 History of Present illness Narrative* Ceci Richard - 06/04/2022 1:56 PM EST Medication reconciliation post discharge from [facility] [place]. Ceci Richard documented in this encounterCincinnati Shriners Hospital03-03-2023 Miscellaneous Notes* Telephone Encounter - Vale Frias LPN - 06/01/2022 9:38 AM EST Faxed [facility] asking for a medication list. * Telephone Encounter - Dennys Baez MD - 05/31/2022 4:59 PM EST I have seen nothing from the [facility] * Telephone Encounter - Daisy Matthews RN - 05/31/2022 4:20 PM EST Anabel Truckload Checker with [facility] called to report that Pt was discharged from the [facility] on 05/30/22. She was asking if the provider had any discharge paperwork if they could fax them to her at fax # [phone]. She states she will go over the information with the patient. documented in this encounterCincinnati Shriners Hospital01-30-2023 Miscellaneous Notes* Telephone Encounter - Brittney Almaguer LPN - 04/30/2022 2:[address] Terry office calling asking for copy of last office visit notes to be faxed to [phone]. Printed and faxed as requested. documented in this [facility]01-16-2023 Miscellaneous Notes* Telephone Encounter - MANUELA Gordon - 04/16/2022 12:27 PM EST Ashanti spoke with [facility]Clinical Liaison,[facility] and she notes that she has received notes from [facility] is sending those to director medical surgical to see if she meets diagnoses for placement and if patientinsurance will allow rehab at [facility]. Gemini noted that if it does not work out at [facility] is [facility] staff thinking about SNF placement. Ashanti noted that [facility] is aware and this has been brought up to ASHANTI Álvarez as another option. Gemini notes that she will let Dr. Baez/Ashanti know if patient will be accepted to [facility]. * Telephone Encounter - Dennys Baez MD - 04/16/2022 12:25 PM EST Thank you! * Telephone Encounter - MANUELA Gordon - 04/16/2022 12:17 PM EST This Sw received message from [facility] DARIUSZ<ASHANTI that Tino Do SW was already looking at rehab options for patient. Shilpi notes that due to patient diagnosis not sure if [facility] will be an option. This Sw also received message from [facility]byClinical Liaison, noting that if [facility] is looking to send patient to their rehab to send referral to [facility] directly. This Sw called and left Shilpi message with [facility] ph. [phone] as had provided Shilpi with [facility] fax for [facility] but wanted to also provide [facility] with [facility] phone number. * Telephone Encounter - MANUELA Gordon - 04/16/2022 10:11 AM EST This Sw called and [facility] to see if she or another Sw would speak with patientabout going to rehab pending her current healthcare needs. Shilpi notes patient is in [facility] and she will call and speak with the SW that covers [employer] in regards to patient current healthcare needs as Shilpi is her Sw through [facility] and is aware of patient medical needs and home care needs/limitations. documented in this encounterCincinnati Shriners Hospital01-14-2023 Miscellaneous Notes* Telephone Encounter - César Figueredo RN - 04/14/2022 6:33 PM EST Patient calling to notify her PCP that she is currently in the [place] ED for weakness. I encouraged the patient to remain in the ED for evaluation and treatment of her symptoms. She verbalized understanding and agreed to do so. documented in this encounterCincinnati Shriners Hospital01-13-2023 Miscellaneous Notes* Telephone Encounter - Vale Frias LPN - 04/13/2022 4:28 PM EST Printed notes from office and faxed as requested. * Telephone Encounter - MANUELA Gordon - 04/13/2022 3:47 PM EST Ashanti spoke with ASHANTI Dobbins [facility] and asked if she could forward their therapy notes to BRADLY Singletary,Clinical Liaison. Shilpi notes that she will work on faxing [facility] their therapy notes to faxnumber below. * Telephone Encounter - MANUELA Gordon - 04/13/2022 3:28 PM EST Ashanti received call back from [facility]-Clinical Liaison, [facility]. . [facility] requests recent H&P, copy of insurance cards, copy of recent office note and copy of therapy notes to be faxed attn: BRADLY Singletary [phone]. Ashanti noted that she would send this message to Dr. Baez office to see about them faxing info to [facility]. This Ashanti will also reach out to SAMARIA Dobbins Ashanti ARZOLA to see if they can assist by sending copy of therapy notes to [facility]. documented in this encounterCincinnati Shriners Hospital01-11-2023 Miscellaneous Notes* Telephone Encounter - Brittney Almaguer LPN - 04/11/2022 2:39 PM EST [facility] Saw [facility] below. * Telephone Encounter - Dennys Baez MD - 03/23/2022 8:32 AM EST She did go but not kept. She has an appt to see us next week. Thanks for your help! * Telephone Encounter - MANUELA Gordon - 03/23/2022 8:18 AM EST Ashanti noted 03/21 nurse triage note mentions patient going to ED due to high blood pressure. Not sure if she went to ED. Ashanti has not heard back from [facility] Admissions. Ashanti has left multiple messages there for a return call. Sw will be out next week. [facility] #[phone]. If patient not at hospital and still wants to pursue going to [facility] this is the number ASHANTI used to call. * Telephone Encounter - MANUELA Gordon - 03/21/2022 11:23 AM EST Ashanti received message for NARCISA Dobbins SW asking about update on patient going to [facility] Rehab. Sw noted waiting to hear back from Admissions-[facility] ARZOLA.\ Sw also left message to patient letting her know that Sw has left 2 messages for [facility],Admissions. Waiting to hear back. * Telephone Encounter - MANEULA Gordon - 03/21/2022 10:09 AM EST Sw left 2nd message for [facility] Admissions ph.[phone] to call back to discuss below. Sw hasnot heard back from Admissions. * Telephone Encounter - Pau Emanuel RN - 03/21/2022 9:36 AM EST Patient calling in to ask if there are any updates to [facility] rehab request. Informed patient that [facility] was working on it and patient would be contacted with any updates. Pau Emanuel RN * Telephone Encounter - Dennys Baez MD - 03/20/2022 12:41 PM EST Thank you!!!! * Telephone Encounter - MANUELA Gordon - 03/20/2022 12:38 PM EST Sw left message for [facility] admissions office to return Sw call to [...] reports she is not doing well with [facility] therapy. Pt reports she can barely walk at this time and cannot do steps. Pt reports she has two steps at home and cannot do them at all. Please review and advise. Bharati Mas LPN documented in this encounterCincinnati Shriners Hospital01-11-2023 Miscellaneous Notes* Telephone Encounter - Dennys Baez MD - 04/11/2022 12:04 PM EST Will follow * Telephone Encounter - Janessa Perez LPN - 04/11/2022 11:24 AM EST FYI: Myranda with [facility] HH, OT called to let you know pt's blood pressure today at 10:45 am was 165/72. Myranda did not repeat because pt had not taken her medication yet. No other information available. If anything is needed please call pt. Janessa Perez LPN documented in this encounterCincinnati Shriners Hospital01-10-2023 Miscellaneous Notes* Telephone Encounter - Nica Crockett Ma - 04/10/2022 4:50 PM EST Faxed to [facility] * Telephone Encounter - Dennys Baez MD - 04/10/2022 12:53 PM EST Ok to discontinue. * Telephone Encounter - Margaret Parkinson RN - 04/10/2022 12:44 PM EST Patient calls to ask if provider would send an order to [facility] to mixing picker tender her oxygen that she hasn'tused in 2 [...] advise, Margaret Parkinson RN documented in this encounterCincinnati Shriners Hospital01-10-2023 Miscellaneous Notes* Telephone Encounter - Katerine Vaughan LPN - 04/10/2022 3:45 PM EST Joceline from [facility] notified, verbalized understanding. * Telephone Encounter - Dennys Baez MD - 04/10/2022 3:37 PM EST ok * Telephone Encounter - Jannette Fernandez RN - 04/10/2022 3:19 PM EST Joceline calling from [facility] to report plan of care for patient and intermediate will visit patient 2 times a week for 3 weeks and 1 time a week for one week to re-certify. Assisted will work with patient on dressings on legs. Please review and Advise, Jannette Fernandez RN documented in this encounterCincinnati Shriners Hospital01-09-2023 Miscellaneous Notes* Telephone Encounter - Brittney Almaguer LPN - 04/09/2022 1:06 PM EST Patient calling asking for new rx for Hydralazine 25 mg one tablet twice daily she had gotten rx from [facility] ER and has none left, has not taken any today. Patient uses [facility]. Pending rx if wanted. Please advise [...] you. Brittney Almaguer LPN documented in this encounterCincinnati Shriners Hospital01-04-2023 Miscellaneous Notes* Telephone Encounter - Nica [...] 04/04/2022 12:39 PM EST Valentina PT from [facility] calls to report that while she was visiting patient today patient's blood pressure was 181/96. Patient was asymptomatic. Patient had not taken blood pressure medications yet. Patient took blood pressure medications while Valentina was there at around 11:30 am. Please review and advise, Jannette Fernandez RN documented in this encounterCincinnati Shriners Hospital12-29-2022 Miscellaneous Notes* Telephone Encounter - Vale [...] name: Nestor Saucedo LPN documented in this encounterCincinnati Shriners Hospital12-28-2022 Miscellaneous Notes* Telephone Encounter - Usha Hernandez RN - 03/28/2022 12:16 PM EST Colette VALENZUELA- [facility] reporting POC: will see patient 1 x [...] BP today was 120's/60's. documented in this encounterCincinnati Shriners Hospital12-28-2022 Miscellaneous Notes* Telephone Encounter - Kathie Lewis LPN - 03/28/2022 11:39 AM EST Charleen calling from [facility] PT reports pt will be seen 2X weekly X 4 wks for lower extremity strength, transfer, gait training, endurance & balance. Charleen reports pt's BP is also good. Kathie Lewis LPN documented in this encounterCincinnati Shriners Hospital12-27-2022 Miscellaneous Notes* Telephone Encounter - Da Saucedo LPN - 03/27/2022 3:29 PM EST Carla notified. She verbalized understanding. Da Saucedo LPN * Telephone Encounter - Dennys Baez MD - 03/27/2022 3:23 PM EST Ok with above. Agree. Really needs ecf placement. * Telephone Encounter - Brittney Almaguer LPN - 03/27/2022 3:15 PM EST Carla from [facility] Home Health calling asking for wound care [...] using rollator. Nurse is discussing situation with Certified Dental Assistant also, to assist with SNF placement. Please advise documented in this encounterCincinnati Shriners Hospital12-27-2022 History of Present illness Narrative* Dennys [...] agrees. Since last here was hospitalized at [facility] and also has been back to the ER. Limited records available. Most of info obtained from patient. Was admitted recently for GASTROENTEROLOGY bleeding. Is to see gi and has seen endo. Is to see wound care. She is to have a chest xray done Was hospitalized for three days from 03/15-03/18 at [facility]. Apparently had hb that was below 8. Had egd. No further gi issues. Using oxygen. Her breathing is better. Had chest xray that showed pleural effusion. Seeing nephrology in April. Bp was 110/57 today since placed on hydralazine. She is still on proamatine. Her swelling is stable. She is using wraps on her legs. Her sugars are better. Was 102 after lunch. manager managed backup services has putting calls into [facility]. She is having trouble getting out of the home. Home health is coming into the home. Occupational and physical therapy are coming in. She had been in [place] recently MEDICATIONS: Current Outpatient Medications Medication Sig dilTIAZem CD (CARDIZEM CD) 240 mg 24 hr capsule Take 1 capsule by mouth once daily. flash glucose sensor (FREESTYLE KRISTA 14 DAY SENSOR) kit Use four times a day and as needed for blood sugar monitoring midodrine (PROAMATINE) 2.5 mg tablet Take 1 tablet by mouth twice daily. Hold for systolic BP ropbn348 pregabalin (LYRICA) 50 mg capsule Take 1 [...] disease) stage 4, GFR 15-29 ml/min (HCC) - ICD9: 585.4, ICD10: N18.4 (primary diagnosis) [...] with more than 50% of the total mvop-fq-pgon time of the visit in counseling / coordination of care. documented in this encounterCincinnati Shriners Hospital12-27-2022 Miscellaneous Notes* Telephone Encounter - Katerine [...] appt? Please advise patient. documented in this encounterCincinnati Shriners Hospital12-22-2022 Miscellaneous Notes* Telephone Encounter - Nica Crockett Ma - 03/22/2022 9:05 AM EST Pt has appt on 03/27/22 Tu for hospital follow up scheduled * Telephone Encounter - Manjit Pollock MD - 03/21/2022 9:11 PM EST DOC received call from [facility] ER. Patient in ER. Was recently released due to HTN, ALMA, na dn vomiting. Was sent in due to high BP. Patient asymptomatic and was given IV hydralazine and BP came down to 178/87. Okayed patient being discharged and suggested adding hydralazine 25 mg TID. Patient needs f/u in Office next week on or Sat for HTN med check. documented in this encounterCincinnati Shriners Hospital12-21-2022 Miscellaneous Notes* Telephone Encounter - DARIO [...] with ambulation. Protocols used: Blood Pressure - [id number] documented in this [facility]12-20-2022 Miscellaneous Notes* Telephone Encounter - Brittney Almaguer LPN - 03/20/2022 12:19 PM EST Keyonna from [facility] Home Health calling with senior living plan of care, 1 visit weekly for 3 weeks working on disease education and wound care. documented in this [facility]12-15-2022 Miscellaneous Notes* Telephone Encounter - Que Ogden LPN - 03/15/2022 9:24 AM EST Pt calling to cancel her appointment today d/t she states she has been readmitted to [facility]. Que Soliman LPN documented in this [facility]12-14-2022 Miscellaneous Notes* Telephone Encounter - Xenia [...] is in. States she was recently at [facility] ER and is taking an antibiotic and [...] head injury 10. : no Protocols used: [id number] documented in this encounterCincinnati Shriners Hospital12-09-2022 Miscellaneous Notes* Telephone Encounter - Dennys Baez MD - 03/09/2022 2:07 PM EST Thank you. Compliance continues to be a significant issue. * Telephone Encounter - Vale Frias LPN - 03/09/2022 1:44 PM EST Spoke with nurse and today BP was 158/88 Temp 99.2 Hasn't picked up ATB yet called neighbor to mixing picker tender for her. Did get the increased dose [...] 03/09/2022 10:20 AM EST Adry RN with [facility] HH calls to let provider know that patient was seen for recertification of care and patient will be seen for 2 wk 4. Adry asking if Diltiazem is to be increased to twice daily? And asking for a call back at [phone] to verify. Current order is diltiazem 240 mg CD 240 mg 24 hour capsule daily and was started on03/06/2022. I see nothing saying medication should be changed to twice daily and current order is CD? Please review and advise, Margaret Parkinson RN * Telephone Encounter - Katja Moya Ma - 03/08/2022 10:13 AM EST Per Care Everywhere pt went into [facility] ED on 03/07/22. Labs on 03/08/22. Katja Moya Ma * Telephone Encounter - Venkatesh Childers MD - 03/08/2022 9:41 AM EST Late entry: Called by [facility] at 8:30 03/07 regarding PRN visit. [...] last night as directed? documented in this encounterCincinnati Shriners Hospital12-09-2022 Miscellaneous Notes* Telephone Encounter - Vale Frias LPN - 03/09/2022 2:06 PM EST BMP from 03/08/22 ER visit printed and given for review. * Telephone Encounter - Nica Crockett Ma - 03/06/2022 4:56 PM EST Faxed lab order to [facility] lab outreach. Advised pt of dosage change of diltiazem. She will hold off physical therapy until bp is improved. Will keep encounter open to look for lab result Nica Crockett Ma * Telephone Encounter - Dennys Baez MD - 03/06/2022 4:29 PM EST I need bmp. If vn can't draw and she can't get out. See if we can have [facility] home health draw becauseis home bound. Increase [...] the hospital. Lab can by ordered by [facility] outreach program. Must say: patient is homebound and have start date and fax for results. [facility] d/c summary on pcp desk. Patient has [...] Can we get the discharge summary from [place]. I have no idea what was done. [facility] frankly given her creatinine was above 4.0, they should be managing her bp and the numbers should be called to them. She needs to see one before then. * Telephone Encounter - Janessa Perez LPN - 03/06/2022 8:47 AM EST Pt called back to let you know she is scheduled at [facility] on 04-23-[address] Teixeira. Also [...] to find out if her insurance covers [employer] transportation to see if she can get a ride to the appointment, because [facility] transport can't take her any more as [...] At this time is unable to use [facility] transport because she requires more assistance than their drivers are able to provide for her. Faxing [facility] Home Health and asking them to help [...] Hui RN - 03/05/2022 2:23 PM EST Carla, nurse @ [facility] calling to let PCP know patient's BP [...] back. Evangelina Hui RN documented in this encounterCincinnati Shriners [facility]12-07-2022 Miscellaneous Notes* Telephone Encounter - Daisy Matthews RN - 03/07/2022 4:44 PM EST Adry [facility] Home Health paper sales manager called and is notified of providers message and instructions.She voices understanding. Daisy Matthews RN * Telephone Encounter - Dennys Baez MD - 03/07/2022 4:28 PM EST How about they do prn visit and social economist get involved. We have not even seen her yet in hospital follow up * Telephone Encounter - Brittney Almaguer LPN - 03/07/2022 4:08 PM EST Adry POWERSeducation managers [facility] Home Health calling patient PT was put [...] situation orpatient may need to go to senior living facility. Nurse was asking if should have PRN visit order to go to patient home tomorrow to just check her blood pressure? Please advise documented in this encounterCincinnati Shriners Hospital12-05-2022 Miscellaneous Notes* Telephone Encounter - Evangelina [...] you. Evangelina Hui RN documented in this encounterCincinnati Shriners Hospital12-02-2022 Miscellaneous Notes* Telephone Encounter - Vale [...] as directed. Please advise documented in this encounterCincinnati Shriners Hospital12-02-2022 Miscellaneous Notes* Telephone Encounter - Pau Emanuel RN - 03/02/2022 2:04 PM EST Adry with [facility] HH calling and states she did a resumption of Nursing HH care for patient. Patient was recently discharged from [facility] on 02/28/22 with diagnosis of UTI, acute kidney injury and CKD Stage4. Adry reports patient was taken off lasix. Pt has ER/HOSP F/U with Benigno Pastrana on 03/15/22. Adry states patient's BP today [...] other instructions/orders. Thank you. documented in this encounterCincinnati Shriners Hospital11-30-2022 Miscellaneous Notes* Telephone Encounter - Vale [...] Dr. Nestor Saucedo LPN documented in this encounterCincinnati Shriners Hospital11-23-2022 Miscellaneous Notes* Telephone Encounter - Daisy Matthews RN - 02/21/2022 3:35 PM EST Charleen FRITZ with [facility] called in and reports they will be seeing patient twice a week for four weeks. They will be working on lower extremity strength, transfer/gait training, and balance/endurance. documented in this encounterCincinnati Shriners Hospital11-21-2022 Miscellaneous Notes* Telephone Encounter - Pau Emanuel RN - 02/19/2022 1:45 PM EST Chelsea with [facility] calling to report patient's BP is out of parameters: BP 162/80. No symptoms. Patient takes clonidine three times a day and had not taken 12p dose yet- nurse states she encouraged pt to do so which she recently did. No call back needed unless provider has orders. PH: [phone]. Thank you. documented in this encounterCincinnati Shriners Hospital11-21-2022 Miscellaneous Notes* Telephone Encounter - Bharati Mas LPN - 02/19/2022 8:28 AM EST Tammy with [facility] calls to report pt was dc'd from hospital on 02/16 with orders to have a follow up bmp done in 3-5 days. Tammy reports they can do the lab if order is faxed to them. Order already in [facility]. Order faxed to: [phone] as requested. Bharati Mas LPN documented in this encounterCincinnati Shriners Hospital11-16-2022 Miscellaneous Notes* Telephone Encounter - Dennys [...] from last week. See if went to [facility] er after I told her last week [...] since might need transfusion. documented in this encounterCincinnati Shriners Hospital11-14-2022 Miscellaneous Notes* Telephone Encounter - Nica Crockett Ma - 02/12/2022 5:05 PM EST Patient notified of provider message * Telephone Encounter - Usha Pastrana PA-C - 02/12/2022 4:57 PM EST Go to [place] ED if that's where she can get transportation. Thanks, Benigno Pastrana PA-C * Telephone Encounter - Usha Hernandez RN - 02/12/2022 10:56 AM EST Patient checking on Benigno osuna. Reports she is feeling the same. Reports Katiamike Duke tells her she needs to give 2 day notice for transportation to ER. Patient agreeable to call [facility] if condition worsens, but prefers to go to [facility] if possible. * Telephone Encounter - Brittney Almaguer LPN - 02/12/2022 9:27 AM EST Patient calling back she has no transportation to go to [facility] wanted to let Benigno Pastrana know. * Telephone Encounter - Usha Hernandez RN - 02/12/2022 8:31 AM EST Patient reports she is feeling worse and does not have a ride to [facility]. Want's to go to [facility], not [facility]. Aware [facility] will only take her to nearest hospital, which is [facility], and has alreadybeen there twice. Reports she [...] on 02-09-22 was 7.4. Patient will call [facility] to see if they can help her with ride to [facility]. Will let MARIE Pelaez, know if they are unable to help. Asking if there is anything Benigno can do to help her get ride to [facility]. Please advise patient. * Telephone Encounter - [...] She has not yet made appointment with machine operator assistant Dr. Terry but intends to do so. [...] up Saturday. Recommend if worse go to [place] ED. Benigno Pastrana PA-C documented in this encounterCincinnati Shriners Hospital11-11-2022 History of Present illness Narrative* Jacquie Cox OD - 02/09/2022 3:06 PM EST 1. [...] 09, 2022 3:06 PM documented in this encounterCincinnati Shriners Hospital11-11-2022 Miscellaneous Notes* Telephone Encounter - Dennys Baez MD - 02/09/2022 2:50 PM EST Thanks!. [facility] ER notified. * Telephone Encounter - Jacquie Cox, OD - 02/09/2022 2:46 PM EST FYI- patient just left for [facility] ER * Telephone Encounter - Ceci Richard - 02/09/2022 2:29 PM EST MONTEZ Vargas notified Dr. Cox's office at [facility] that patient needs to go to [...] my note from today documented in this encounterCincinnati Shriners Hospital11-11-2022 History of Present illness Narrative* Dennys Baez MD - 02/09/2022 11:40 AM EST Patient presents with: Edema: Bilateral leg edema HPI: Patient presents today for office visit for follow up. Saw Benigno at last ov. Has been referred back to laina for her sugars. Has a hx of [...] 1/2 hr before meal. flash glucose sensor (Happiest MindsSTYLE KRISTA 14 DAY SENSOR) kit Use four [...] 180 [employer] (BLOOD PRESSURE CUFF) [facility] Use as directed. Blood Pressure Monitor [...] RTO in two weeks documented in this encounterCincinnati Shriners Hospital11-10-2022 Miscellaneous Notes* Telephone Encounter - Vale Frias LPN - 02/08/2022 3:27 PM EST Patient is now scheduled to see Dr Cox. * Telephone Encounter - Pau Emanuel RN [...] advise patient. Thank you. documented in this encounterCincinnati Shriners Hospital11-09-2022 Miscellaneous Notes* Telephone Encounter - Daisy [...] - 02/07/2022 1:34 PM EST Alexandria with [facility] HH, OT calling with blood pressure reading for pt today at 1:10 pm. 167/86 heart rate60. Pt is asymptomatic. Alexandria also states pt was to wound care yesterday and they took her BP x 3 and all three were high. Pt was d/c from [facility] OT today. Further [facility] nursing visits have been denied and PT is waiting to hear if they are able to continue with pt. Pt has taken her medications today and also had taken her medications yesterday also. Please advise pt. Janessa Perez LPN documented in this encounterCincinnati Shriners Hospital11-07-2022 Miscellaneous Notes* Telephone Encounter - Vale Frias LPN - 02/05/2022 1:42 PM EST Notified that ok to continue nursing. * Telephone Encounter - Dennys Baez MD - 02/05/2022 1:35 PM EST Ok. Thank you. * Telephone Encounter - Ceci Richard - 02/05/2022 1:11 PM EST Spoke with Chelsea from [facility] home health who states patient acted like she was going to make her follow up with Dr. Cortes but has not. Nothing scheduled. Joceline said she would reiterate importance ofkeeping her follow up with endo to patient when she sees her next. Needs verbal for continued senior living. 1x weekly for 4 weeks. Ok? Ceci Richard * Telephone Encounter - Dennys Baez MD - 02/05/2022 12:08 PM EST Does she have follow up with endo? Had been seeing them * Telephone Encounter - Jannette Fernandez RN - 02/05/2022 11:40 AM EST Jocleine calling from [facility] to report plan of care for patient and Assisted will continue tovisit patient 1 time a [...] Advise, Jannette Fernandez RN documented in this encounterCincinnati Shriners Hospital11-04-2022 Miscellaneous Notes* Telephone Encounter - Ceci Richard - 02/02/2022 1:24 PM EDT Spoke with patient and informed and verbalized understanding. States she will wait for ride and then head to [facility]. Ceci Richard * Telephone Encounter - Dennys Baez MD - 02/02/2022 1:15 PM EDT Kidneys are worse. Given her edema from yesterday, recommend er. * Telephone Encounter - Vale Frias LPN - 02/02/2022 1:11 PM EDT CMP scanned into system today as requested. documented in this encounterCincinnati Shriners Hospital11-03-2022 Miscellaneous Notes* Telephone Encounter - Pau [...] get down her steps either. Patient uses [facility] for her pharmacy. Patient said she has been going to the wound center. Please advise documented in this encounterCincinnati Shriners Hospital11-02-2022 Miscellaneous Notes* Telephone Encounter - Maria T Richmond - 01/31/2022 8:21 AM EDT Called PT LVM to call back and schedule with Endo. Live PSS * Telephone Encounter - Ceci Richard - [...] she was to follow up with Dr. Castrejon. Make sure that is set up and that she stay on iron. Recheck labs in one month documented in this encounterCincinnati Shriners Hospital10-31-2022 Miscellaneous Notes* Telephone Encounter - Vale [...] - 01/29/2022 12:54 PM EDT Joceline from [facility] calls to report that she was able [...] advise, Jannette Fernandez RN documented in this encounterCincinnati Shriners Hospital10-24-2022 Miscellaneous Notes* Telephone Encounter - Nica Crockett Ma - 01/22/2022 4:15 PM EDT MARIA L Aguirre at [facility]. She will have them draw labs next [...] RN - 01/22/2022 9:15 AM EDT Carla- [facility]- reporting to pcp- patient has a Krista [...] phone Carla with reply. documented in this encounterCincinnati Shriners Hospital10-20-2022 Miscellaneous Notes* Telephone Encounter - Vale [...] - 01/17/2022 3:38 PM EDT Valentina from [facility] Home Health PT calling she was at [...] above perimeters. Please advise documented in this encounterCincinnati Shriners Hospital10-18-2022 Miscellaneous Notes* Telephone Encounter - Nica [...] Almaguer LPN - 01/12/2022 2:58 PM EDT Jannte from [facility] Home Health calling to report patient had fall today. Patient feels weak and unsteady fall in her laundry room. Abrasion on right knee 1.5 cm x 1.5 cm from crawling to get help to get back up. Nurse is applying neosporin and bandaid. Asking for wound care verbal orders, and verbal order for senior living 1 visit weekly for 4 weeks, working on wound, UTI prevention. Patient had been released from hospital for UTI yesterday. Reporting blood pressure out of perimeters at 156 pm 179/96 pulse 84. Please advise documented in this encounterCincinnati Shriners Hospital10-18-2022 Instructions* Patient Instructions* Usha Pastrana PA-C - 01/16/2022 10:24 AM EDT Up for Librnikiw on-line and invite Dr. Cortes so he can view all your blood sugars. Please push fluids with water, non-caffeinated and non-alcoholic beverages. ' documented in this encounterCincinnati Shriners Hospital10-18-2022 History of Present illness Narrative* Usha Pastrana PA-C - 01/16/2022 10:00 AM EDT 61 year old female with c/o Hospital discharge follow-up Facility: [facility] Date of admission: 01/06/2022 Date of discharge: 01/10/2022 Prehospitalization work-up: 10/06/2021 presented [facility] with symptoms of hypoglycemia, not feeling well, [...] to schedule colonoscopy: need to schedule with [facility] Started PT at home from [facility]. Also home care, nursing for heel wound which she states she has had for a long time. Checking blood sugars at home, Krista monitor Had one low blood sugar for which [...] 60 tablet 2 flash glucose scanning reader (Happiest MindsSTYLE KRISTA 14 DAY READER) 1 Each four [...] 2 [employer] (BLOOD PRESSURE CUFF) [facility] Use as directed. 1 Each 0 [...] Type 2 DM - Uncontrolled E11.65 Insulin: [id number] Each 3 No current facility-administered medications for [...] vaccine - ICD9: V04.89, ICD10: Z23 - PFIZER-BIONTECH COVID-19 BIVALENT BOOSTER VACCINE, AGE 12+ YR [...] weeks. Usha Pastrana PA-C documented in this encounterCincinnati Shriners Hospital10-17-2022 Miscellaneous Notes* Telephone Encounter - Nica Crockett Ma - 01/15/2022 2:20 PM EDT Pt has appt tomorrow * Telephone Encounter - Usha Pastrana PA-C - 01/15/2022 12:50 PM EDT POC noted and agree. Recheck BP NV or in offiice ThanksBenigno PA-C * Telephone Encounter - Jannette Fernandez RN - 01/15/2022 12:16 PM EDT Alexandria OT from [facility] calling to report plan of care for patient and OT will visit patient 2 times a week for 4 weeks. OT will work with patient on strengthening and IDLs. Also Alexandria reports that patient's blood pressure has been elevated. Blood pressure was 179/107 HR 80. Patient was asymptomatic. Please review and Advise, Jannette Fernandez RN documented in this encounterCincinnati Shriners Hospital10-17-2022 Miscellaneous Notes* Telephone Encounter - Pau Emanuel RN - 01/15/2022 1:57 PM EDT Carla a nurse with [facility] calling to state patient's blood pressure was elevated at today's visit, as reported to Benigno Pastrana earlier today by OT. Nurse reports BP reading for patient that she obtained was 190/100. Patient remains asymptomatic. Carla given Benigno Pastrana's instruction from telephone encounter earlier today and will inform patientto call and schedule appt for BP check. Pau Emanuel RN documented in this encounterCincinnati Shriners Hospital10-10-2022 Miscellaneous Notes* Telephone Encounter - Dennys Baez MD - 01/08/2022 4:17 PM EDT yes * Telephone Encounter - Janessa Perez LPN - 01/08/2022 3:33 PM EDT Genoveva with [facility] called and states pt is in [facility] and due to be released tomorrow or soon after and HH is being referred to for PT and OT. DX. blood sugar off, hyperosmolality, UTI, hyponatremia.Genoveva asking if you will follow and sign for Home Health. Please advise Laura at [phone]. Janessa Perez LPN documented in this encounterCincinnati Shriners Hospital08-11-2022 Miscellaneous Notes* Telephone Encounter - Brittney [...] 27 02/25/2021 17 Please advise. Thank you. Jannette Fernandez RN * Telephone Encounter - Kristen Cartwright LPN - 11/08/2021 8:32 AM EDT Last office visit 06/19/2021 Next appointment scheduled 12/25/2021 Last labs 06/19/2021 * Telephone Encounter - Vicky Guerin - 11/08/2021 8:09 AM EDT Patient has [...] pharmacy. No need to notify patient. Vicky Guerin documented in this encounterCincinnati Shriners Hospital07-08-2022 Miscellaneous Notes* Telephone Encounter - Leda [...] you. Leda Shah LPN documented in this encounterCincinnati Shriners Hospital05-24-2022 History of Present illness Narrative* Merced Mendez Ma - 08/22/2021 3:17 PM EDT POPULATION HEALTH NAVIGATION OUTREACH Action/FYI Spoke with pt and scheduled mammogram. Declined AD. Pt identified by name and : YES, via phone Outreach Outcome/Action Spoke to patient or caregiver: Patient scheduled Reason for Outreach Care Gap or Scheduling/Wellness visits Payer: Payor: [employer] / Plan: [employer] HMO / Product Type: HMO / Care [...] Message Sent to Practice: No Navigation Signature: Merced Mendez Ma August 22, 2021 3:18 PM documented in this encounterC[facility] Miscellaneous Notes* Telephone Encounter - Katerine Vaughan LPN - 08/01/2021 2:52 PM EDT Prescription faxed to [facility] [phone] * Telephone Encounter - Dennys Baez MD - 08/01/2021 2:39 PM EDT Printed. * Telephone Encounter - Ysabel Mchugh LPN - 08/01/2021 11:29 AM EDT [facility] sends fax for prescription request for makenna bar. Routed to PCP to review and sign. Dorene Mchugh LPN documented in this encounterCincinnati [facility]04-[facility] History of Present illness Narrative* Julio C Reynoso RN - 06/30/2021 2:51 PM EDT DIABETES SELF-MANAGEMENT EDUCATION AND SUPPORT Location: [place] Type of visit: In person individual Types of DSMES: Initial/Comprehensive (add to or update ADA spreadsheet) PATIENT'S MAIN CONCERN TODAY: Learn Support person present for education today: none Cognitive ability: Alert and oriented Motivation to learn: Interested Learning barriers identified by educator: slow to respond at times, reports she had a concussion [id number], use more response time to facilitate processing [...] Type 1 What year were you diagnosed? 2013 Does anyone in your family have diabetes? yes grandmother (paternal) How do you learn best? 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 Please call [phone] to schedule with them - Continue to follow up with the foot doctor - See my colleague diabetes nurse in 6 weeks and with me in 3 months documented in this encounterCincinnati [facility]04-[facility] History of Present illness Narrative* Anthony [...] not eat Home glucose monitoring: She uses [employer] CGM The patient's continuous glucose monitoring device [...] 2 Miscellaneous Medical Supply (BLOOD PRESSURE CUFF) [facility] [place] Use as directed. 1 Each 0 [...] Type 2 DM - Uncontrolled E11.65 Insulin: [id number] Each 3 No current facility-administered medications for [...] Ratio 925 (H) Assessment and Recommendations: Ms. Biro is a pleasant 60-year-old woman presented to [...] I recommend that she sees cardiology at [facility] for further discussion and adjustments. We [...] with more than 50% of the total [id number] time of the visit in counseling / coordination of care. Anthony Cortes MD documented in this encounterCincinnati [facility]04-01-2022 Miscellaneous Notes* Telephone Encounter - Lalita Castillo - 06/30/2021 8:48 AM EDT Contacted patient. She has an appointment today at [place]. Has a few questions then she will be asking [facility] to schedule these tests. Lalita Castillo PSS [...] two to four weeks. documented in this encounterCincinnati [facility]08-03-2019 History of Past illness Narrative* Problem [...] at least twice a week Neurology at [facility] recently discontinued Maxalt (triptans) due to history of CVA Neurology following PLAN: Hopefully headaches will improve with decreased BP Started on Diltiazem CD daily for HTN and may help with Migraine prophylaxis documented as of this encounter (statuses as of 06/30/2021) [facility] of Past illness Narrative* Problem [...] at least twice a week Neurology at [facility] recently discontinued Maxalt (triptans) due to history of CVA Neurology following PLAN: Hopefully headaches will improve with decreased BP Started on Diltiazem CD daily for HTN and may help with Migraine prophylaxis documented as of this encounter (statuses as of 06/30/2021) [facility] of Past illness Narrative* Problem [...] at least twice a week Neurology at [facility] recently discontinued Maxalt (triptans) due to history of CVA Neurology following PLAN: Hopefully headaches will improve with decreased BP Started on Diltiazem CD daily for HTN and may help with Migraine prophylaxis documented as of this encounter (statuses as of 06/30/2021) [facility] of [facility] illness Narrative* Problem [...] at least twice a week Neurology at [facility] recently discontinued Maxalt (triptans) due to history of CVA Neurology following PLAN: Hopefully headaches will improve with decreased BP Started on Diltiazem CD daily for HTN and may help with Migraine prophylaxis documented as of this encounter (statuses as of 08/01/2021) [facility] of [facility] illness Narrative* Problem [...] at least twice a week Neurology at [facility] recently discontinued Maxalt (triptans) due to history of CVA Neurology following PLAN: Hopefully headaches will improve with decreased BP Started on Diltiazem CD daily for HTN and may help with Migraine prophylaxis documented as of this encounter (statuses as of 08/21/2021) [facility] Narrative* Problem [...] at least twice a week Neurology at [facility] recently discontinued Maxalt (triptans) due to history of CVA Neurology following PLAN: Hopefully headaches will improve with decreased BP Started on Diltiazem CD daily for HTN and may help with Migraine prophylaxis documented as of this encounter (statuses as of 08/23/2021) [facility] of [facility] illness Narrative* Problem [...] at least twice a week Neurology at [facility] recently discontinued Maxalt (triptans) due to history of CVA Neurology following PLAN: Hopefully headaches will improve with decreased BP Started on Diltiazem CD daily for HTN and may help with Migraine prophylaxis documented as of this encounter (statuses as of 10/06/2021) [facility] Narrative* Problem [...] at least twice a week Neurology at [facility] recently discontinued Maxalt (triptans) due to history of CVA Neurology following PLAN: Hopefully headaches will improve with decreased BP Started on Diltiazem CD daily for HTN and may help with Migraine prophylaxis documented as of this encounter (statuses as of 11/10/2021) [facility] Narrative* Problem [...] at least twice a week Neurology at [facility] recently discontinued Maxalt (triptans) due to history of CVA Neurology following PLAN: Hopefully headaches will improve with decreased BP Started on Diltiazem CD daily for HTN and may help with Migraine prophylaxis documented as of this encounter (statuses as of 01/08/2022) [facility] illness Narrative* Problem [...] at least twice a week Neurology at [facility] recently discontinued Maxalt (triptans) due to history of CVA Neurology following PLAN: Hopefully headaches will improve with decreased BP Started on Diltiazem CD daily for HTN and may help with Migraine prophylaxis documented as of this encounter (statuses as of 01/15/2022) [facility] Narrative* Problem [...] at least twice a week Neurology at [facility] recently discontinued Maxalt (triptans) due to history of CVA Neurology following PLAN: Hopefully headaches will improve with decreased BP Started on Diltiazem CD daily for HTN and may help with Migraine prophylaxis documented as of this encounter (statuses as of 01/16/2022) [facility] Narrative* Problem [...] at least twice a week Neurology at [facility] recently discontinued Maxalt (triptans) due to history of CVA Neurology following PLAN: Hopefully headaches will improve with decreased BP Started on Diltiazem CD daily for HTN and may help with Migraine prophylaxis documented as of this encounter (statuses as of 01/17/2022) [facility] Narrative* Problem [...] at least twice a week Neurology at [facility] recently discontinued Maxalt (triptans) due to history of CVA Neurology following PLAN: Hopefully headaches will improve with decreased BP Started on Diltiazem CD daily for HTN and may help with Migraine prophylaxis documented as of this encounter (statuses as of 01/18/2022) [facility] of [facility] Narrative* Problem Noted Date Resolved Date 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), 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 Overview: [...] at least twice a week Neurology at [facility] recently discontinued Maxalt (triptans) due to history of CVA Neurology following PLAN: Hopefully headaches will improve with decreased BP Started on Diltiazem CD daily for HTN and may help with Migraine prophylaxis documented as of this encounter (statuses as of 01/22/2022) [facility] Narrative* Problem [...] at least twice a week Neurology at [facility] recently discontinued Maxalt (triptans) due to history of CVA Neurology following PLAN: Hopefully headaches will improve with decreased BP Started on Diltiazem CD daily for HTN and may help with Migraine prophylaxis documented as of this encounter (statuses as of 01/29/2022) [facility] Narrative* Problem Noted Date Resolved Date Latent autoimmune diabetes i n adults (NHOELIA), 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 Overview: [...] at least twice a week Neurology at [facility] recently discontinued Maxalt (triptans) due to history of CVA Neurology following PLAN: Hopefully headaches will improve with decreased BP Started on Diltiazem CD daily for HTN and may help with Migraine prophylaxis documented as of this encounter (statuses as of 01/31/2022) [facility] Narrative* Problem [...] at least twice a week Neurology at [facility] recently discontinued Maxalt (triptans) due to history of CVA Neurology following PLAN: Hopefully headaches will improve with decreased BP Started on Diltiazem CD daily for HTN and may help with Migraine prophylaxis documented as of this encounter (statuses as of 02/02/2022) [facility] Narrative* Problem [...] at least twice a week Neurology at [facility] recently discontinued Maxalt (triptans) due to history of CVA Neurology following PLAN: Hopefully headaches will improve with decreased BP Started on Diltiazem CD daily for HTN and may help with Migraine prophylaxis documented as of this encounter (statuses as of 02/05/2022) [facility] Narrative* Problem [...] at least twice a week Neurology at [facility] recently discontinued Maxalt (triptans) due to history of CVA Neurology following PLAN: Hopefully headaches will improve with decreased BP Started on Diltiazem CD daily for HTN and may help with Migraine prophylaxis documented as of this encounter (statuses as of 02/07/2022) [facility] Narrative* Problem [...] at least twice a week Neurology at [facility] recently discontinued Maxalt (triptans) due to history of CVA Neurology following PLAN: Hopefully headaches will improve with decreased BP Started on Diltiazem CD daily for HTN and may help with Migraine prophylaxis documented as of this encounter (statuses as of 02/08/2022) [facility] Narrative* Problem [...] at least twice a week Neurology at [facility] recently discontinued Maxalt (triptans) due to history of CVA Neurology following PLAN: Hopefully headaches will improve with decreased BP Started on Diltiazem CD daily for HTN and may help with Migraine prophylaxis documented as of this encounter (statuses as of 02/09/2022) [facility] Narrative* Problem [...] at least twice a week Neurology at [facility] recently discontinued Maxalt (triptans) due to history of CVA Neurology following PLAN: Hopefully headaches will improve with decreased BP Started on Diltiazem CD daily for HTN and may help with Migraine prophylaxis documented as of this encounter (statuses as of 02/09/2022) [facility] Narrative* Problem [...] at least twice a week Neurology at [facility] recently discontinued Maxalt (triptans) due to history of CVA Neurology following PLAN: Hopefully headaches will improve with decreased BP Started on Diltiazem CD daily for HTN and may help with Migraine prophylaxis documented as of this encounter (statuses as of 02/09/2022) [facility] Narrative* Problem [...] at least twice a week Neurology at [facility] recently discontinued Maxalt (triptans) due to history of CVA Neurology following PLAN: Hopefully headaches will improve with decreased BP Started on Diltiazem CD daily for HTN and may help with Migraine prophylaxis documented as of this encounter (statuses as of 02/13/2022) [facility] Narrative* Problem [...] at least twice a week Neurology at [facility] recently discontinued Maxalt (triptans) due to history of CVA Neurology following PLAN: Hopefully headaches will improve with decreased BP Started on Diltiazem CD daily for HTN and may help with Migraine prophylaxis documented as of this encounter (statuses as of 02/13/2022) [facility] Narrative* Problem [...] at least twice a week Neurology at [facility] recently discontinued Maxalt (triptans) due to history of CVA Neurology following PLAN: Hopefully headaches will improve with decreased BP Started on Diltiazem CD daily for HTN and may help with Migraine prophylaxis documented as of this encounter (statuses as of 02/14/2022) [facility] Narrative* Problem [...] at least twice a week Neurology at [facility] recently discontinued Maxalt (triptans) due to history of CVA Neurology following PLAN: Hopefully headaches will improve with decreased BP Started on Diltiazem CD daily for HTN and may help with Migraine prophylaxis documented as of this encounter (statuses as of 02/19/2022) [facility] Narrative* Problem [...] at least twice a week Neurology at [facility] recently discontinued Maxalt (triptans) due to history of CVA Neurology following PLAN: Hopefully headaches will improve with decreased BP Started on Diltiazem CD daily for HTN and may help with Migraine prophylaxis documented as of this encounter (statuses as of 02/28/2022) [facility] Narrative* Problem [...] at least twice a week Neurology at [facility] recently discontinued Maxalt (triptans) due to history of CVA Neurology following PLAN: Hopefully headaches will improve with decreased BP Started on Diltiazem CD daily for HTN and may help with Migraine prophylaxis documented as of this encounter (statuses as of 03/02/2022) [facility] Narrative* Problem [...] at least twice a week Neurology at [facility] recently discontinued Maxalt (triptans) due to history of CVA Neurology following PLAN: Hopefully headaches will improve with decreased BP Started on Diltiazem CD daily for HTN and may help with Migraine prophylaxis documented as of this encounter (statuses as of 03/05/2022) [facility] Narrative* Problem [...] at least twice a week Neurology at [facility] recently discontinued Maxalt (triptans) due to history of CVA Neurology following PLAN: Hopefully headaches will improve with decreased BP Started on Diltiazem CD daily for HTN and may help with Migraine prophylaxis documented as of this encounter (statuses as of 03/05/2022) [facility] Narrative* Problem [...] at least twice a week Neurology at [facility] recently discontinued Maxalt (triptans) due to history of CVA Neurology following PLAN: Hopefully headaches will improve with decreased BP Started on Diltiazem CD daily for HTN and may help with Migraine prophylaxis documented as of this encounter (statuses as of 03/06/2022) [facility] Narrative* Problem [...] at least twice a week Neurology at [facility] recently discontinued Maxalt (triptans) due to history of CVA Neurology following PLAN: Hopefully headaches will improve with decreased BP Started on Diltiazem CD daily for HTN and may help with Migraine prophylaxis documented as of this encounter (statuses as of 03/06/2022) [facility] Narrative* Problem [...] at least twice a week Neurology at [facility] recently discontinued Maxalt (triptans) due to history of CVA Neurology following PLAN: Hopefully headaches will improve with decreased BP Started on Diltiazem CD daily for HTN and may help with Migraine prophylaxis documented as of this encounter (statuses as of 03/07/2022) [facility] Narrative* Problem [...] at least twice a week Neurology at [facility] recently discontinued Maxalt (triptans) due to history of CVA Neurology following PLAN: Hopefully headaches will improve with decreased BP Started on Diltiazem CD daily for HTN and may help with Migraine prophylaxis documented as of this encounter (statuses as of 03/09/2022) [facility] Narrative* Problem [...] at least twice a week Neurology at [facility] recently discontinued Maxalt (triptans) due to history of CVA Neurology following PLAN: Hopefully headaches will improve with decreased BP Started on Diltiazem CD daily for HTN and may help with Migraine prophylaxis documented as of this encounter (statuses as of 03/09/2022) [facility] Narrative* Problem [...] at least twice a week Neurology at [facility] recently discontinued Maxalt (triptans) due to history of CVA Neurology following PLAN: Hopefully headaches will improve with decreased BP Started on Diltiazem CD daily for HTN and may help with Migraine prophylaxis documented as of this encounter (statuses as of 03/14/2022) [facility] Narrative* Problem [...] at least twice a week Neurology at [facility] recently discontinued Maxalt (triptans) due to history of CVA Neurology following PLAN: Hopefully headaches will improve with decreased BP Started on Diltiazem CD daily for HTN and may help with Migraine prophylaxis documented as of this encounter (statuses as of 03/15/2022) [facility] Narrative* Problem [...] at least twice a week Neurology at [facility] recently discontinued Maxalt (triptans) due to history of CVA Neurology following PLAN: Hopefully headaches will improve with decreased BP Started on Diltiazem CD daily for HTN and may help with Migraine prophylaxis documented as of this encounter (statuses as of 03/21/2022) [facility] Narrative* Problem [...] at least twice a week Neurology at [facility] recently discontinued Maxalt (triptans) due to history of CVA Neurology following PLAN: Hopefully headaches will improve with decreased BP Started on Diltiazem CD daily for HTN and may help with Migraine prophylaxis documented as of this encounter (statuses as of 03/24/2022) [facility] Narrative* Problem [...] at least twice a week Neurology at [facility] recently discontinued Maxalt (triptans) due to history of CVA Neurology following PLAN: Hopefully headaches will improve with decreased BP Started on Diltiazem CD daily for HTN and may help with Migraine prophylaxis documented as of this encounter (statuses as of 04/01/2022) [facility] Narrative* Problem [...] at least twice a week Neurology at [facility] recently discontinued Maxalt (triptans) due to history of CVA Neurology following PLAN: Hopefully headaches will improve with decreased BP Started on Diltiazem CD daily for HTN and may help with Migraine prophylaxis documented as of this encounter (statuses as of 04/02/2022) [facility] Narrative* Problem [...] at least twice a week Neurology at [facility] recently discontinued Maxalt (triptans) due to history of CVA Neurology following PLAN: Hopefully headaches will improve with decreased BP Started on Diltiazem CD daily for HTN and may help with Migraine prophylaxis documented as of this encounter (statuses as of 04/02/2022) [facility] Narrative* Problem [...] at least twice a week Neurology at [facility] recently discontinued Maxalt (triptans) due to history of CVA Neurology following PLAN: Hopefully headaches will improve with decreased BP Started on Diltiazem CD daily for HTN and may help with Migraine prophylaxis documented as of this encounter (statuses as of 04/04/2022) [facility] Narrative* Problem [...] at least twice a week Neurology at [facility] recently discontinued Maxalt (triptans) due to history of CVA Neurology following PLAN: Hopefully headaches will improve with decreased BP Started on Diltiazem CD daily for HTN and may help with Migraine prophylaxis documented as of this encounter (statuses as of 04/04/2022) [facility] Narrative* Problem [...] at least twice a week Neurology at [facility] recently discontinued Maxalt (triptans) due to history of CVA Neurology following PLAN: Hopefully headaches will improve with decreased BP Started on Diltiazem CD daily for HTN and may help with Migraine prophylaxis documented as of this encounter (statuses as of 04/06/2022) [facility]2019 History of Past illness Narrative* Problem [...] at least twice a week Neurology at [facility] recently discontinued Maxalt (triptans) due to history of CVA Neurology following PLAN: Hopefully headaches will improve with decreased BP Started on Diltiazem CD daily for HTN and may help with Migraine prophylaxis documented as of this encounter (statuses as of 04/09/2022) [facility]2019 History of Past illness Narrative* Problem [...] at least twice a week Neurology at [facility] recently discontinued Maxalt (triptans) due to history of CVA Neurology following PLAN: Hopefully headaches will improve with decreased BP Started on Diltiazem CD daily for HTN and may help with Migraine prophylaxis documented as of this encounter (statuses as of 04/10/2022) [facility] History of Past illness Narrative* Problem [...] at least twice a week Neurology at [facility] recently discontinued Maxalt (triptans) due to history of CVA Neurology following PLAN: Hopefully headaches will improve with decreased BP Started on Diltiazem CD daily for HTN and may help with Migraine prophylaxis documented as of this encounter (statuses as of 04/11/2022) [facility] History of Past illness Narrative* Problem [...] at least twice a week Neurology at [facility] recently discontinued Maxalt (triptans) due to history of CVA Neurology following PLAN: Hopefully headaches will improve with decreased BP Started on Diltiazem CD daily for HTN and may help with Migraine prophylaxis documented as of this encounter (statuses as of 04/11/2022) [facility] History of Past illness Narrative* Problem [...] at least twice a week Neurology at [facility] recently discontinued Maxalt (triptans) due to history of CVA Neurology following PLAN: Hopefully headaches will improve with decreased BP Started on Diltiazem CD daily for HTN and may help with Migraine prophylaxis documented as of this encounter (statuses as of 04/11/2022) [facility] History of Past illness Narrative* Problem [...] at least twice a week Neurology at [facility] recently discontinued Maxalt (triptans) due to history of CVA Neurology following PLAN: Hopefully headaches will improve with decreased BP Started on Diltiazem CD daily for HTN and may help with Migraine prophylaxis documented as of this encounter (statuses as of 04/11/2022) [facility] History of Past illness Narrative* Problem [...] at least twice a week Neurology at [facility] recently discontinued Maxalt (triptans) due to history of CVA Neurology following PLAN: Hopefully headaches will improve with decreased BP Started on Diltiazem CD daily for HTN and may help with Migraine prophylaxis documented as of this encounter (statuses as of 04/14/2022) [facility] History of Past illness Narrative* Problem [...] at least twice a week Neurology at [facility] recently discontinued Maxalt (triptans) due to history of CVA Neurology following PLAN: Hopefully headaches will improve with decreased BP Started on Diltiazem CD daily for HTN and may help with Migraine prophylaxis documented as of this encounter (statuses as of 04/16/2022) [facility] History of Past illness Narrative* Problem [...] at least twice a week Neurology at [facility] recently discontinued Maxalt (triptans) due to history of CVA Neurology following PLAN: Hopefully headaches will improve with decreased BP Started on Diltiazem CD daily for HTN and may help with Migraine prophylaxis documented as of this encounter (statuses as of 04/19/2022) [facility] History of Past illness Narrative* Problem [...] at least twice a week Neurology at [facility] recently discontinued Maxalt (triptans) due to history of CVA Neurology following PLAN: Hopefully headaches will improve with decreased BP Started on Diltiazem CD daily for HTN and may help with Migraine prophylaxis documented as of this encounter (statuses as of 04/30/2022) [facility] History of Past illness Narrative* Problem [...] at least twice a week Neurology at [facility] recently discontinued Maxalt (triptans) due to history of CVA Neurology following PLAN: Hopefully headaches will improve with decreased BP Started on Diltiazem CD daily for HTN and may help with Migraine prophylaxis documented as of this encounter (statuses as of 06/01/2022) [facility] History of Past illness Narrative* Problem [...] at least twice a week Neurology at [facility] recently discontinued Maxalt (triptans) due to history of CVA Neurology following PLAN: Hopefully headaches will improve with decreased BP Started on Diltiazem CD daily for HTN and may help with Migraine prophylaxis documented as of this encounter (statuses as of 06/04/2022) [facility] History of Past illness Narrative* Problem [...] at least twice a week Neurology at [facility] recently discontinued Maxalt (triptans) due to history of CVA Neurology following PLAN: Hopefully headaches will improve with decreased BP Started on Diltiazem CD daily for HTN and may help with Migraine prophylaxis documented as of this encounter (statuses as of 06/04/2022) [facility] History of Past illness Narrative* Problem [...] at least twice a week Neurology at [facility] recently discontinued Maxalt (triptans) due to history of CVA Neurology following PLAN: Hopefully headaches will improve with decreased BP Started on Diltiazem CD daily for HTN and may help with Migraine prophylaxis documented as of this encounter (statuses as of 06/08/2022) [facility] History of Past illness Narrative* Problem Noted Date Resolved Date 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), 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 Overview: [...] at least twice a week Neurology at [facility] recently discontinued Maxalt (triptans) due to history of CVA Neurology following PLAN: Hopefully headaches will improve with decreased BP Started on Diltiazem CD daily for HTN and may help with Migraine prophylaxis documented as of this encounter (statuses as of 06/19/2022) [facility] History of Past illness Narrative* Problem [...] at least twice a week Neurology at [facility] recently discontinued Maxalt (triptans) due to history of CVA Neurology following PLAN: Hopefully headaches will improve with decreased BP Started on Diltiazem CD daily for HTN and may help with Migraine prophylaxis documented as of this encounter (statuses as of 06/20/2022) [facility] History of Past illness Narrative* Problem [...] at least twice a week Neurology at [facility] recently discontinued Maxalt (triptans) due to history of CVA Neurology following PLAN: Hopefully headaches will improve with decreased BP Started on Diltiazem CD daily for HTN and may help with Migraine prophylaxis documented as of this encounter (statuses as of 06/22/2022) [facility] History of Past illness Narrative* Problem [...] at least twice a week Neurology at [facility] recently discontinued Maxalt (triptans) due to history of CVA Neurology following PLAN: Hopefully headaches will improve with decreased BP Started on Diltiazem CD daily for HTN and may help with Migraine prophylaxis documented as of this encounter (statuses as of 06/25/2022) [facility] History of Past illness Narrative* Problem [...] at least twice a week Neurology at [facility] recently discontinued Maxalt (triptans) due to history of CVA Neurology following PLAN: Hopefully headaches will improve with decreased BP Started on Diltiazem CD daily for HTN and may help with Migraine prophylaxis documented as of this encounter (statuses as of 07/03/2022) [facility] History of Past illness Narrative* Problem [...] at least twice a week Neurology at [facility] recently discontinued Maxalt (triptans) due to history of CVA Neurology following PLAN: Hopefully headaches will improve with decreased BP Started on Diltiazem CD daily for HTN and may help with Migraine prophylaxis documented as of this encounter (statuses as of 07/04/2022) [facility] History of Past illness Narrative* Problem [...] at least twice a week Neurology at [facility] recently discontinued Maxalt (triptans) due to history of CVA Neurology following PLAN: Hopefully headaches will improve with decreased BP Started on Diltiazem CD daily for HTN and may help with Migraine prophylaxis documented as of this encounter (statuses as of 07/24/2022) [facility] History of Past illness Narrative* Problem [...] at least twice a week Neurology at [facility] recently discontinued Maxalt (triptans) due to history of CVA Neurology following PLAN: Hopefully headaches will improve with decreased BP Started on Diltiazem CD daily for HTN and may help with Migraine prophylaxis documented as of this encounter (statuses as of 07/25/2022) [facility] History of Past illness Narrative* Problem [...] at least twice a week Neurology at [facility] recently discontinued Maxalt (triptans) due to history of CVA Neurology following PLAN: Hopefully headaches will improve with decreased BP Started on Diltiazem CD daily for HTN and may help with Migraine prophylaxis documented as of this encounter (statuses as of 07/26/2022) [facility] History of Past illness Narrative* Problem [...] at least twice a week Neurology at [facility] recently discontinued Maxalt (triptans) due to history of CVA Neurology following PLAN: Hopefully headaches will improve with decreased BP Started on Diltiazem CD daily for HTN and may help with Migraine prophylaxis documented as of this encounter (statuses as of 07/30/2022) [facility] History of Past illness Narrative* Problem [...] at least twice a week Neurology at [facility] recently discontinued Maxalt (triptans) due to history of CVA Neurology following PLAN: Hopefully headaches will improve with decreased BP Started on Diltiazem CD daily for HTN and may help with Migraine prophylaxis documented as of this encounter (statuses as of 08/02/2022) [facility] History of Past illness Narrative* Problem [...] at least twice a week Neurology at [facility] recently discontinued Maxalt (triptans) due to history of CVA Neurology following PLAN: Hopefully headaches will improve with decreased BP Started on Diltiazem CD daily for HTN and may help with Migraine prophylaxis documented as of this encounter (statuses as of 09/14/2022) [facility] History of Past illness Narrative* Problem [...] at least twice a week Neurology at [facility] recently discontinued Maxalt (triptans) due to history of CVA Neurology following PLAN: Hopefully headaches will improve with decreased BP Started on Diltiazem CD daily for HTN and may help with Migraine prophylaxis documented as of this encounter (statuses as of 09/20/2022) [facility] History of Past illness Narrative* Problem [...] at least twice a week Neurology at [facility] recently discontinued Maxalt (triptans) due to history of CVA Neurology following PLAN: Hopefully headaches will improve with decreased BP Started on Diltiazem CD daily for HTN and may help with Migraine prophylaxis documented as of this encounter (statuses as of 09/27/2022) [facility] History of Past illness Narrative* Problem [...] at least twice a week Neurology at [facility] recently discontinued Maxalt (triptans) due to history of CVA Neurology following PLAN: Hopefully headaches will improve with decreased BP Started on Diltiazem CD daily for HTN and may help with Migraine prophylaxis documented as of this encounter (statuses as of 10/08/2022) [facility] History of Past illness Narrative* Problem [...] at least twice a week Neurology at [facility] recently discontinued Maxalt (triptans) due to history of CVA Neurology following PLAN: Hopefully headaches will improve with decreased BP Started on Diltiazem CD daily for HTN and may help with Migraine prophylaxis documented as of this encounter (statuses as of 10/17/2022) [facility] History of Past illness Narrative* Problem [...] at least twice a week Neurology at [facility] recently discontinued Maxalt (triptans) due to history of CVA Neurology following PLAN: Hopefully headaches will improve with decreased BP Started on Diltiazem CD daily for HTN and may help with Migraine prophylaxis documented as of this encounter (statuses as of 10/24/2022) [facility] History of Past illness Narrative* Problem [...] at least twice a week Neurology at [facility] recently discontinued Maxalt (triptans) due to history of CVA Neurology following PLAN: Hopefully headaches will improve with decreased BP Started on Diltiazem CD daily for HTN and may help with Migraine prophylaxis documented as of this encounter (statuses as of 11/28/2022) [facility] History of Past illness Narrative* Problem [...] at least twice a week Neurology at [facility] recently discontinued Maxalt (triptans) due to history of CVA Neurology following PLAN: Hopefully headaches will improve with decreased BP Started on Diltiazem CD daily for HTN and may help with Migraine prophylaxis documented as of this encounter (statuses as of 11/28/2022) [facility] History of Past illness Narrative* Problem [...] at least twice a week Neurology at [facility] recently discontinued Maxalt (triptans) due to history of CVA Neurology following PLAN: Hopefully headaches will improve with decreased BP Started on Diltiazem CD daily for HTN and may help with Migraine prophylaxis documented as of this encounter (statuses as of 11/28/2022) [facility] History of Past illness Narrative* Problem [...] at least twice a week Neurology at [facility] recently discontinued Maxalt (triptans) due to history of CVA Neurology following PLAN: Hopefully headaches will improve with decreased BP Started on Diltiazem CD daily for HTN and may help with Migraine prophylaxis documented as of this encounter (statuses as of 01/11/2023) [facility] History of Past illness Narrative* Problem [...] at least twice a week Neurology at [facility] recently discontinued Maxalt (triptans) due to history of CVA Neurology following PLAN: Hopefully headaches will improve with decreased BP Started on Diltiazem CD daily for HTN and may help with Migraine prophylaxis documented as of this encounter (statuses as of 01/25/2023) [facility] History of Past illness Narrative* Problem [...] at least twice a week Neurology at [facility] recently discontinued Maxalt (triptans) due to history of CVA Neurology following PLAN: Hopefully headaches will improve with decreased BP Started on Diltiazem CD daily for HTN and may help with Migraine prophylaxis documented as of this encounter (statuses as of 02/02/2023) [facility] History of Past illness Narrative* Problem [...] at least twice a week Neurology at [facility] recently discontinued Maxalt (triptans) due to history of CVA Neurology following PLAN: Hopefully headaches will improve with decreased BP Started on Diltiazem CD daily for HTN and may help with Migraine prophylaxis documented as of this encounter (statuses as of 02/07/2023) [facility] History of Past illness Narrative* Problem [...] at least twice a week Neurology at [facility] recently discontinued Maxalt (triptans) due to history of CVA Neurology following PLAN: Hopefully headaches will improve with decreased BP Started on Diltiazem CD daily for HTN and may help with Migraine prophylaxis documented as of this encounter (statuses as of 02/07/2023) [facility] History of Past illness Narrative* Problem [...] at least twice a week Neurology at [facility] recently discontinued Maxalt (triptans) due to history of CVA Neurology following PLAN: Hopefully headaches will improve with decreased BP Started on Diltiazem CD daily for HTN and may help with Migraine prophylaxis documented as of this encounter (statuses as of 02/07/2023) [facility] History of Past illness Narrative* Problem [...] at least twice a week Neurology at [facility] recently discontinued Maxalt (triptans) due to history of CVA Neurology following PLAN: Hopefully headaches will improve with decreased BP Started on Diltiazem CD daily for HTN and may help with Migraine prophylaxis documented as of this encounter (statuses as of 02/07/2023) [facility] History of Past illness Narrative* Problem [...] at least twice a week Neurology at [facility] recently discontinued Maxalt (triptans) due to history of CVA Neurology following PLAN: Hopefully headaches will improve with decreased BP Started on Diltiazem CD daily for HTN and may help with Migraine prophylaxis documented as of this encounter (statuses as of 02/07/2023) [facility] History of Past illness Narrative* Problem [...] at least twice a week Neurology at [facility] recently discontinued Maxalt (triptans) due to history of CVA Neurology following PLAN: Hopefully headaches will improve with decreased BP Started on Diltiazem CD daily for HTN and may help with Migraine prophylaxis documented as of this encounter (statuses as of 02/08/2023) [facility] History of Past illness Narrative* Problem [...] at least twice a week Neurology at [facility] recently discontinued Maxalt (triptans) due to history of CVA Neurology following PLAN: Hopefully headaches will improve with decreased BP Started on Diltiazem CD daily for HTN and may help with Migraine prophylaxis documented as of this encounter (statuses as of 02/14/2023) [facility] History of Past illness Narrative* Problem [...] at least twice a week Neurology at [facility] recently discontinued Maxalt (triptans) due to history of CVA Neurology following PLAN: Hopefully headaches will improve with decreased BP Started on Diltiazem CD daily for HTN and may help with Migraine prophylaxis documented as of this encounter (statuses as of 02/15/2023) [facility] History of Past illness Narrative* Problem [...] at least twice a week Neurology at [facility] recently discontinued Maxalt (triptans) due to history of CVA Neurology following PLAN: Hopefully headaches will improve with decreased BP Started on Diltiazem CD daily for HTN and may help with Migraine prophylaxis documented as of this encounter (statuses as of 02/20/2023) [facility] History of Past illness Narrative* Problem [...] at least twice a week Neurology at [facility] recently discontinued Maxalt (triptans) due to history of CVA Neurology following PLAN: Hopefully headaches will improve with decreased BP Started on Diltiazem CD daily for HTN and may help with Migraine prophylaxis documented as of this encounter (statuses as of 02/26/2023) [facility] Diagnosis Proteinuria, unspecified type- Primary Stage 3b chronic kidney disease (HCC) Anemia, unspecified type [facility] Diagnosis Type 1 diabetes mellitus with hyperglycemia (HCC)- Primary Type I (juvenile type) diabetes mellitus without mention of complication, not stated as uncontrolled [facility] Diagnosis 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, unspecified laterality (HCC) [facility] Diagnosis Ataxia- Primary Lack of coordination [facility] Diagnosis Encounter for screening mammogram for breast cancer [facility] Diagnosis Gastroparesis due to DM (HCC) Type II or unspecified type diabetes mellitus with neurological manifestations, not stated as uncontrolled [facility] Diagnosis Gastroparesis due to DM (HCC) Type II or unspecified type diabetes mellitus with neurological manifestations, not stated as uncontrolled Hyperlipidemia, unspecified hyperlipidemia type [facility] Diagnosis Iron deficiency anemia, unspecified iron [...] Proteinuria, unspecified type [facility] Diagnosis 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, unspecified laterality (HCC)- Primary [facility] Diagnosis 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, unspecified laterality (HCC)- Primary [facility] Diagnosis Iron deficiency anemia, unspecified iron deficiency anemia type- Primary [facility] Diagnosis Edema, unspecified type- Primary Orthostatic hypotension Weight gain Abnormal weight gain Hypertension Essential hypertension, benign Stage 3b chronic kidney disease (HCC) 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, unspecified laterality (HCC) Chronic pain syndrome documented in this [facility] Diagnosis 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, bilateral (HCC)- Primary Combined forms of age-related cataract of both eyes Other and combined forms of senile cataract Refractive error Unspecified disorder of refraction and accommodation [facility] Diagnosis Anemia, unspecified type- Primary Renal insufficiency Unspecified disorder of kidney and ureter Noncompliance Personal history of noncompliance with medical treatment, presenting hazards to health [facility] Diagnosis Renal insufficiency- Primary Unspecified disorder of kidney and ureter [facility] Diagnosis CKD (chronic kidney disease) stage 4, GFR 15-29 ml/min ([facility])- Primary Chronic kidney disease, Stage IV (severe) [...] stated as uncontrolled [facility] Diagnosis Hypoxia- Primary Hypoxemia [facility] Diagnosis Hospital discharge follow-up- Primary Other [...] benign Hypokalemia Hypopotassemia [facility] Diagnosis 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, unspecified laterality (HCC)- Primary [facility] Diagnosis Garbled speech- Primary Other speech disturbance 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, unspecified laterality (HCC) 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), 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[facility]) Type II or unspecified type diabetes mellitus without mention of complication, not stated as uncontrolled Acute on chronic combined systolic and diastolic CHF (congestive heart failure) ([facility]) Acute on chronic combined systolic and diastolic heart failure CKD (chronic kidney disease) stage 4, GFR 15-29 ml/min ([facility]) Chronic kidney disease, Stage IV (severe) Hypertension Essential hypertension, benign Anemia, chronic disease Anemia of other chronic disease Malnutrition of moderate degree (HCC) Malnutrition of moderate degree Ataxia Lack of coordination Physical debility Debility, unspecified [facility] Diagnosis Encounter for screening mammogram for breast cancer [facility] Diagnosis 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, unspecified laterality ([facility])- Primary Non healing left heel wound Open wound of foot except toe(s) alone, complicated Benign essential HTN Essential hypertension, benign ESRD (end stage renal disease) on dialysis ([facility]) End stage renal disease Chronic pain syndrome [facility] Diagnosis Non healing left heel wound- Primary Open wound of foot except toe(s) alone, complicated Orthostatic hypotension Autonomic neuropathy Unspecified disorder of autonomic nervous system Physical debility Debility, unspecified Chronic pain syndrome [facility] Diagnosis Gastroparesis due to DM ([facility]) Type II or unspecified type diabetes mellitus with neurological manifestations, not stated as uncontrolled [facility] Diagnosis Hyperlipidemia, unspecified hyperlipidemia type [facility] Diagnosis ESRD on dialysis ([facility])- Primary End stage renal disease Pre-transplant evaluation for ESRD (end stage renal disease) Other specified pre-operative examination Hypertension, unspecified type [facility] Diagnosis Pre-transplant evaluation for kidney transplant- Primary Other specified pre-operative examination [facility] Diagnosis Chronic renal failure, stage 5 ([facility])- Primary Pre-transplant evaluation for kidney transplant Other specified pre-operative examination [facility] Diagnosis 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, bilateral ([facility])- Primary Combined forms of age-related cataract of both eyes Other and combined forms of senile cataract Refractive error Unspecified disorder of refraction and accommodation [facility] Diagnosis Pre-transplant evaluation for kidney transplant- Primary Other specified pre-operative examination [facility] Diagnosis Pre-transplant evaluation for CKD (chronic kidney disease)- Primary Other specified pre-operative examination [facility] Diagnosis Awaiting organ transplant- Primary Awaiting organ transplant status Dietary counseling and surveillance Dietary surveillance and counseling [facility] Diagnosis Pre-transplant evaluation for CKD (chronic kidney disease)- Primary Other specified pre-operative examination [facility] Diagnosis ESRD on dialysis (HCC)- Primary End stage renal disease Type 2 diabetes mellitus with diabetic nephropathy, unspecified whether medical terminologist insulin use (HCC) Frailty Senility without mention of psychosis Skin ulcer of pretibial region limited to breakdown of skin, unspecified laterality (HCC) [facility] Diagnosis Pre-transplant evaluation for kidney transplant- Primary Other specified pre-operative examination [facility] Diagnosis Elevated liver enzymes- Primary Other nonspecific abnormal serum enzyme levels [facility] Diagnosis Orthostatic hypotension- Primary Hypertension Essential [...] foot, initial encounter [facility] Diagnosis Occlusion of carotid artery, unspecified laterality- Primary documented in this encounter [facility]* Diagnosis Neurogenic bladder- Primary Neurogenic bladder, NOS documented in this encounter [facility] for referral (narrative)* Diagnostic Procedure Only (Routine) - Pending Review Specialty Diagnoses / Procedures Referred By Wicho t Referred To Contact [facility] Diagnoses Encounter for screening mammogram for breast cancer Procedures SHAYY SCREENING SCREENING MAMMOGRAPHY BI 2-VIEW BREAST INC Dennys Jackson MD [address] [place] [address] [facility] [address] [place] [address] Referral ID Status Reason Start Date Expiration Date Visits Requested Visits Authorized [id number] Pending Review Auto-Generat ed Referral 08/16/2021 09/15/2022 1 1 [facility] for referral (narrative)* Diagnostic Procedure Only (Routine) - Pending Review Specialty Diagnoses / Procedures Referred By Wicho menard Referred To Contact [facility] Diagnoses Encounter for screening mammogram for breast cancer Procedures HSAYY SCREENING SCREENING MAMMOGRAPHY BI 2-VIEW BREAST INC Dennys Jackson MD [address] [place] [address] [facility] [address] [place] [id number] Referral ID Status Reason Start Date Expiration Date Visits Requested Visits Authorized [id number] Pending Review Auto-Generat ed Referral 07/25/2022 08/24/2023 1 1 T [facility] for referral (narrative)* Diagnostic Procedure Only (Routine) - Closed Specialty Diagnoses / Procedures Referred By Wicho t Referred To Contact XR IMAGING Diagnoses Contusion of left foot, initial encounter Procedures XR FOOT GENERAL 3V AP/LAT/OBL LEFT RADEX FOOT COMPLETE MINIMUM 3 VIEWS Dennys Baez MD [address] [place] [address] [place] [address] Referral ID Status Reason Start Date Expiration Date V isits Requested Visits Authorized [id number] Closed Auto-Generate d Referral 02/27/2023 03/28/2024 1 1 * Consult, Test, Treat (Routine) - Authorized Specialty Diagnoses / Procedures Referred By Wicho menard Referred To Contact Cardiology Diagnoses Chronic congestive heart failure, unspecified heart failure type (HCC) Diastolic heart failure, unspecified HF chronicity (HCC) Procedures CONSULT TO CARDIOLOGY OFFICE/OUTPATIENT [facility] MDM 60-74 MINUTES Dennys Baez MD [address] [place] [address] Referral ID Status Reason Start Date Expiration Date Visits Requested Visits Authorized [id number] Authorized PCP Requested Referral 02/27/2024 1 1 [facility] Outpatient Procedure (Routine) - Pending Review Specialty Diagnoses / Procedures Referred By Wicho menard Referred To [facility] Diagnoses Occlusion of carotid artery, unspecified laterality Procedures US CAROTID ARTERIES [facility] DUPLEX SCAN EXTRACRANIAL ART COMPL BI STUDY Dennys Baez MD [address] [place] [address] 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 Advance Directive(s) 02/25/2021 4:40 PM Advance Directive(s) 10/28/2018 11:37 AM Documents on File Type Date Recorded Patient Pilot Safety Inspector Expl anation Advance Directive(s) 02/25/2021 4:40 PM Advance Directive(s) 10/28/2018 11:37 AM Reason for Referral Specialty Diagnoses / Procedures Referred By Wicho menard Referred To Contact Cardiology Diagnoses Type 1 diabetes mellitus with hyperglycemia (HCC) Procedures CONSULT TO CARDIOLOGY OFFICE/OUTPATIENT [facility] 60-74 MINUTES Anthony Cortes MD [address] [place] [address] Referral ID Status Reason Start Date Expiration Date Visits Requested Visits Authorized [id number] Authorized PCP Requested Referral 06/30/2021 06/30/2022 1 1 Specialty Diagnoses / Procedures Referred By Contac t Referred To Contact Diagnoses Type 1 diabetes mellitus with hyperglycemia (HCC) Procedures CONSULT TO DIABETES EDUCATION OFFICE/OUTPATIENT [facility] 60-74 MINUTES Anthony Cortes MD [address] [place] [address] Referral ID Status Reason Start Date Expiration Date Visits Requested Visits Authorized [id number] Authorized PCP Requested Referral 06/30/2021 06/30/2022 1 1 Specialty Diagnoses / Procedures Referred By Contac t Referred To Contact Nephrology Diagnoses Stage 3b chronic kidney disease (HCC) Procedures CONSULT TO NEPHROLOGY OFFICE/OUTPATIENT [facility] 60-74 MINUTES Dennys Baez MD [address] [place] [address] Referral ID Status Reason Start Date Expiration Date Visits Requested Visits Authorized [id number] Authorized PCP Requested Referral 02/09/2023 1 1 Specialty Diagnoses / Procedures Referred By Contac t Referred To Contact Endocrinology Diagnoses 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, unspecified laterality (HCC) Procedures CONSULT TO ENDOCRINOLOGY OFFICE/OUTPATIENT [facility] 60-74 MINUTES Dennys Baez MD [address] [place] [address] Referral ID Status Reason Start Date Expiration Date Visits Requested Visits Authorized [id number] Authorized PCP Requested Referral 06/18/2022 06/18/2023 1 1 Specialty Diagnoses / Procedures Referred By Contac t Referred To Contact TRANSPLANT Diagnoses ESRD on dialysis (HCC) Pre-transplant evaluation for ESRD (end stage renal disease) Hypertension, unspecified type Procedures CONSULT TO TRANSPLANT CENTER OFFICE/OUTPATIENT [facility] 60-74 MINUTES CHEST X-RAY, FRONT&LAT ECG ROUTINE ECG W/LEAST 12 LDS TRCG ONLY W/O I&R CT ANGIOGRAPHY CHEST W/CONTRAST/NONCONTRAST CT ABDOMEN W & W/O CONTRAST Aubree Terry I, DO [address] [address] [facility] [address] [address] Referral ID Status Reason Start Date Expiration Date Visits Requested Visits Authorized [id number] Outside PCP Financial Clearance Required - [employer] Pay[employer] 10/24/2022 10/24/2023 99 99 Specialty Diagnoses / Procedures Referred By Wicho t Referred To Contact CT IMAGING Diagnoses Chronic renal failure, stage 5 (HCC) Pre-transplant evaluation for kidney transplant Procedures CT ABD/PEL WO IVCON CT ABD & PELVIS W/O CONTRAST Brandy Watson APRN.FOREST SCIENCE PROFESSOR [address] [place] [address] [facility] [place] [address] Referral ID Status Reason Start Date Expiration Date Visits Requested Visits Authorized [id number] Authorized Auto-Generat ed Referral 12/05/2022 12/28/2023 1 [...] DATE CREATED AUTHOR AUTHOR'S ORGANIZ ATION 05/03/2023 [facility] Source Comments (unrecognize d section and content) In the event this informatio n is protected by the Federal Confidentiality of Alcohol and Drug Abuse Patient Records regulations: The Federal rules restrict any use of the information to criminally investigate or prosecute any alcohol or drug abuse patient.[facility] the event this information is protected by the Federal Confidentiality of Alcohol and Drug Abuse Patient Records regulations: The Federal rules restrict any use of the information to criminally investigate or prosecute any alcohol or drug abuse patient.[facility] the event this information is protected by the Federal Confidentiality of Alcohol and Drug Abuse Patient Records regulations: The Federal rules restrict any use of the information to criminally investigate or prosecute any alcohol or drug abuse patient.[facility] the event this information is protected by the Federal Confidentiality of Alcohol and Drug Abuse Patient Records regulations: The Federal rules restrict any use of the information to criminally investigate or prosecute any alcohol or drug abuse patient.[facility] the event this information is protected by the Federal Confidentiality of Alcohol and Drug Abuse Patient Records regulations: The Federal rules restrict any use of the information to criminally investigate or prosecute any alcohol or drug abuse patient.[facility] the event this information is protected by the Federal Confidentiality of Alcohol and Drug Abuse Patient Records regulations: The Federal rules restrict any use of the information to criminally investigate or prosecute any alcohol or drug abuse patient.[facility] the event this information is protected by the Federal Confidentiality of Alcohol and Drug Abuse Patient Records regulations: The Federal rules restrict any use of the information to criminally investigate or prosecute any alcohol or drug abuse patient.[facility] the event this information is protected by the Federal Confidentiality of Alcohol and Drug Abuse Patient Records regulations: The Federal rules restrict any use of the information to criminally investigate or prosecute any alcohol or drug abuse patient.[facility] the event this information is protected by the Federal Confidentiality of Alcohol and Drug Abuse Patient Records regulations: The Federal rules restrict any use of the information to criminally investigate or prosecute any alcohol or drug abuse patient.[facility] the event this information is protected by the Federal Confidentiality of Alcohol and Drug Abuse Patient Records regulations: The Federal rules restrict any use of the information to criminally investigate or prosecute any alcohol or drug abuse patient.[facility] the event this information is protected by the Federal Confidentiality of Alcohol and Drug Abuse Patient Records regulations: The Federal rules restrict any use of the information to criminally investigate or prosecute any alcohol or drug abuse patient.[facility] the event this information is protected by the Federal Confidentiality of Alcohol and Drug Abuse Patient Records regulations: The Federal rules restrict any use of the information to criminally investigate or prosecute any alcohol or drug abuse patient.[facility] the event this information is protected by the Federal Confidentiality of Alcohol and Drug Abuse Patient Records regulations: The Federal rules restrict any use of the information to criminally investigate or prosecute any alcohol or drug abuse patient.[facility] the event this information is protected by the Federal Confidentiality of Alcohol and Drug Abuse Patient Records regulations: The Federal rules restrict any use of the information to criminally investigate or prosecute any alcohol or drug abuse patient.[facility] the event this information is protected by the Federal Confidentiality of Alcohol and Drug Abuse Patient Records regulations: The Federal rules restrict any use of the information to criminally investigate or prosecute any alcohol or drug abuse patient.[facility] the event this information is protected by the Federal Confidentiality of Alcohol and Drug Abuse Patient Records regulations: The Federal rules restrict any use of the information to criminally investigate or prosecute any alcohol or drug abuse patient.[facility] the event this information is protected by the Federal Confidentiality of Alcohol and Drug Abuse Patient Records regulations: The Federal rules restrict any use of the information to criminally investigate or prosecute any alcohol or drug abuse patient.[facility] the event this information is protected by the Federal Confidentiality of Alcohol and Drug Abuse Patient Records regulations: The Federal rules restrict any use of the information to criminally investigate or prosecute any alcohol or drug abuse patient.[facility] the event this information is protected by the Federal Confidentiality of Alcohol and Drug Abuse Patient Records regulations: The Federal rules restrict any use of the information to criminally investigate or prosecute any alcohol or drug abuse patient.[facility] the event this information is protected by the Federal Confidentiality of Alcohol and Drug Abuse Patient Records regulations: The Federal rules restrict any use of the information to criminally investigate or prosecute any alcohol or drug abuse patient.[facility] the event this information is protected by the Federal Confidentiality of Alcohol and Drug Abuse Patient Records regulations: The Federal rules restrict any use of the information to criminally investigate or prosecute any alcohol or drug abuse patient.[facility] the event this information is protected by the Federal Confidentiality of Alcohol and Drug Abuse Patient Records regulations: The Federal rules restrict any use of the information to criminally investigate or prosecute any alcohol or drug abuse patient.[facility] the event this information is protected by the Federal Confidentiality of Alcohol and Drug Abuse Patient Records regulations: The Federal rules restrict any use of the information to criminally investigate or prosecute any alcohol or drug abuse patient.[facility] the event this information is protected by the Federal Confidentiality of Alcohol and Drug Abuse Patient Records regulations: The Federal rules restrict any use of the information to criminally investigate or prosecute any alcohol or drug abuse patient.[facility] the event this information is protected by the Federal Confidentiality of Alcohol and Drug Abuse Patient Records regulations: The Federal rules restrict any use of the information to criminally investigate or prosecute any alcohol or drug abuse patient.[facility] the event this information is protected by the Federal Confidentiality of Alcohol and Drug Abuse Patient Records regulations: The Federal rules restrict any use of the information to criminally investigate or prosecute any alcohol or drug abuse patient.[facility] the event this information is protected by the Federal Confidentiality of Alcohol and Drug Abuse Patient Records regulations: The Federal rules restrict any use of the information to criminally investigate or prosecute any alcohol or drug abuse patient.[facility] the event this information is protected by the Federal Confidentiality of Alcohol and Drug Abuse Patient Records regulations: The Federal rules restrict any use of the information to criminally investigate or prosecute any alcohol or drug abuse patient.[facility] the event this information is protected by the Federal Confidentiality of Alcohol and Drug Abuse Patient Records regulations: The Federal rules restrict any use of the information to criminally investigate or prosecute any alcohol or drug abuse patient.[facility] the event this information is protected by the Federal Confidentiality of Alcohol and Drug Abuse Patient Records regulations: The Federal rules restrict any use of the information to criminally investigate or prosecute any alcohol or drug abuse patient.[facility] the event this information is protected by the Federal Confidentiality of Alcohol and Drug Abuse Patient Records regulations: The Federal rules restrict any use of the information to criminally investigate or prosecute any alcohol or drug abuse patient.[facility] the event this information is protected by the Federal Confidentiality of Alcohol and Drug Abuse Patient Records regulations: The Federal rules restrict any use of the information to criminally investigate or prosecute any alcohol or drug abuse patient.[facility] the event this information is protected by the Federal Confidentiality of Alcohol and Drug Abuse Patient Records regulations: The Federal rules restrict any use of the information to criminally investigate or prosecute any alcohol or drug abuse patient.[facility] the event this information is protected by the Federal Confidentiality of Alcohol and Drug Abuse Patient Records regulations: The Federal rules restrict any use of the information to criminally investigate or prosecute any alcohol or drug abuse patient.[facility] the event this information is protected by the Federal Confidentiality of Alcohol and Drug Abuse Patient Records regulations: The Federal rules restrict any use of the information to criminally investigate or prosecute any alcohol or drug abuse patient.[facility] the event this information is protected by the Federal Confidentiality of Alcohol and Drug Abuse Patient Records regulations: The Federal rules restrict any use of the information to criminally investigate or prosecute any alcohol or drug abuse patient.[facility] the event this information is protected by the Federal Confidentiality of Alcohol and Drug Abuse Patient Records regulations: The Federal rules restrict any use of the information to criminally investigate or prosecute any alcohol or drug abuse patient.[facility] HospitalIn the event this information is protected by the Federal Confidentiality of Alcohol and Drug Abuse Patient Records regulations: The Federal rules restrict any use of the information to criminally investigate or prosecute any alcohol or drug abuse patient.[facility] HospitalIn the event this information is protected by the Federal Confidentiality of Alcohol and Drug Abuse Patient Records regulations: The Federal rules restrict any use of the information to criminally investigate or prosecute any alcohol or drug abuse patient.[facility] HospitalIn the event this information is protected by the Federal Confidentiality of Alcohol and Drug Abuse Patient Records regulations: The Federal rules restrict any use of the information to criminally investigate or prosecute any alcohol or drug abuse patient.[facility] HospitalIn the event this information is protected by the Federal Confidentiality of Alcohol and Drug Abuse Patient Records regulations: The Federal rules restrict any use of the information to criminally investigate or prosecute any alcohol or drug abuse patient.[facility] HospitalIn the event this information is protected by the Federal Confidentiality of Alcohol and Drug Abuse Patient Records regulations: The Federal rules restrict any use of the information to criminally investigate or prosecute any alcohol or drug abuse patient.[facility] HospitalIn the event this information is protected by the Federal Confidentiality of Alcohol and Drug Abuse Patient Records regulations: The Federal rules restrict any use of the information to criminally investigate or prosecute any alcohol or drug abuse patient.[facility] HospitalIn the event this information is protected by the Federal Confidentiality of Alcohol and Drug Abuse Patient Records regulations: The Federal rules restrict any use of the information to criminally investigate or prosecute any alcohol or drug abuse patient.[facility] HospitalIn the event this information is protected by the Federal Confidentiality of Alcohol and Drug Abuse Patient Records regulations: The Federal rules restrict any use of the information to criminally investigate or prosecute any alcohol or drug abuse patient.[facility] HospitalIn the event this information is protected by the Federal Confidentiality of Alcohol and Drug Abuse Patient Records regulations: The Federal rules restrict any use of the information to criminally investigate or prosecute any alcohol or drug abuse patient.[facility] HospitalIn the event this information is protected by the Federal Confidentiality of Alcohol and Drug Abuse Patient Records regulations: The Federal rules restrict any use of the information to criminally investigate or prosecute any alcohol or drug abuse patient.[facility] HospitalIn the event this information is protected by the Federal Confidentiality of Alcohol and Drug Abuse Patient Records regulations: The Federal rules restrict any use of the information to criminally investigate or prosecute any alcohol or drug abuse patient.[facility] HospitalIn the event this information is protected by the Federal Confidentiality of Alcohol and Drug Abuse Patient Records regulations: The Federal rules restrict any use of the information to criminally investigate or prosecute any alcohol or drug abuse patient.[facility] HospitalIn the event this information is protected by the Federal Confidentiality of Alcohol and Drug Abuse Patient Records regulations: The Federal rules restrict any use of the information to criminally investigate or prosecute any alcohol or drug abuse patient.[facility] HospitalIn the event this information is protected by the Federal Confidentiality of Alcohol and Drug Abuse Patient Records regulations: The Federal rules restrict any use of the information to criminally investigate or prosecute any alcohol or drug abuse patient.[facility] HospitalIn the event this information is protected by the Federal Confidentiality of Alcohol and Drug Abuse Patient Records regulations: The Federal rules restrict any use of the information to criminally investigate or prosecute any alcohol or drug abuse patient.[facility] HospitalIn the event this information is protected by the Federal Confidentiality of Alcohol and Drug Abuse Patient Records regulations: The Federal rules restrict any use of the information to criminally investigate or prosecute any alcohol or drug abuse patient.[facility] HospitalIn the event this information is protected by the Federal Confidentiality of Alcohol and Drug Abuse Patient Records regulations: The Federal rules restrict any use of the information to criminally investigate or prosecute any alcohol or drug abuse patient.[facility] HospitalIn the event this information is protected by the Federal Confidentiality of Alcohol and Drug Abuse Patient Records regulations: The Federal rules restrict any use of the information to criminally investigate or prosecute any alcohol or drug abuse patient.[facility] HospitalIn the event this information is protected by the Federal Confidentiality of Alcohol and Drug Abuse Patient Records regulations: The Federal rules restrict any use of the information to criminally investigate or prosecute any alcohol or drug abuse patient.[facility] HospitalIn the event this information is protected by the Federal Confidentiality of Alcohol and Drug Abuse Patient Records regulations: The Federal rules restrict any use of the information to criminally investigate or prosecute any alcohol or drug abuse patient.[facility] HospitalIn the event this information is protected by the Federal Confidentiality of Alcohol and Drug Abuse Patient Records regulations: The Federal rules restrict any use of the information to criminally investigate or prosecute any alcohol or drug abuse patient.[facility] HospitalIn the event this information is protected by the Federal Confidentiality of Alcohol and Drug Abuse Patient Records regulations: The Federal rules restrict any use of the information to criminally investigate or prosecute any alcohol or drug abuse patient.[facility] HospitalIn the event this information is protected by the Federal Confidentiality of Alcohol and Drug Abuse Patient Records regulations: The Federal rules restrict any use of the information to criminally investigate or prosecute any alcohol or drug abuse patient.[facility] HospitalIn the event this information is protected by the Federal Confidentiality of Alcohol and Drug Abuse Patient Records regulations: The Federal rules restrict any use of the information to criminally investigate or prosecute any alcohol or drug abuse patient.[facility] HospitalIn the event this information is protected by the Federal Confidentiality of Alcohol and Drug Abuse Patient Records regulations: The Federal rules restrict any use of the information to criminally investigate or prosecute any alcohol or drug abuse patient.[facility] HospitalIn the event this information is protected by the Federal Confidentiality of Alcohol and Drug Abuse Patient Records regulations: The Federal rules restrict any use of the information to criminally investigate or prosecute any alcohol or drug abuse patient.[facility] HospitalIn the event this information is protected by the Federal Confidentiality of Alcohol and Drug Abuse Patient Records regulations: The Federal rules restrict any use of the information to criminally investigate or prosecute any alcohol or drug abuse patient.[facility] HospitalIn the event this information is protected by the Federal Confidentiality of Alcohol and Drug Abuse Patient Records regulations: The Federal rules restrict any use of the information to criminally investigate or prosecute any alcohol or drug abuse patient.[facility] HospitalIn the event this information is protected by the Federal Confidentiality of Alcohol and Drug Abuse Patient Records regulations: The Federal rules restrict any use of the information to criminally investigate or prosecute any alcohol or drug abuse patient.[facility] HospitalIn the event this information is protected by the Federal Confidentiality of Alcohol and Drug Abuse Patient Records regulations: The Federal rules restrict any use of the information to criminally investigate or prosecute any alcohol or drug abuse patient.[facility] HospitalIn the event this information is protected by the Federal Confidentiality of Alcohol and Drug Abuse Patient Records regulations: The Federal rules restrict any use of the information to criminally investigate or prosecute any alcohol or drug abuse patient.[facility] HospitalIn the event this information is protected by the Federal Confidentiality of Alcohol and Drug Abuse Patient Records regulations: The Federal rules restrict any use of the information to criminally investigate or prosecute any alcohol or drug abuse patient.[facility] HospitalIn the event this information is protected by the Federal Confidentiality of Alcohol and Drug Abuse Patient Records regulations: The Federal rules restrict any use of the information to criminally investigate or prosecute any alcohol or drug abuse patient.[facility] HospitalIn the event this information is protected by the Federal Confidentiality of Alcohol and Drug Abuse Patient Records regulations: The Federal rules restrict any use of the information to criminally investigate or prosecute any alcohol or drug abuse patient.[facility] HospitalIn the event this information is protected by the Federal Confidentiality of Alcohol and Drug Abuse Patient Records regulations: The Federal rules restrict any use of the information to criminally investigate or prosecute any alcohol or drug abuse patient.[facility] HospitalIn the event this information is protected by the Federal Confidentiality of Alcohol and Drug Abuse Patient Records regulations: The Federal rules restrict any use of the information to criminally investigate or prosecute any alcohol or drug abuse patient.[facility] HospitalIn the event this information is protected by the Federal Confidentiality of Alcohol and Drug Abuse Patient Records regulations: The Federal rules restrict any use of the information to criminally investigate or prosecute any alcohol or drug abuse patient.[facility] HospitalIn the event this information is protected by the Federal Confidentiality of Alcohol and Drug Abuse Patient Records regulations: The Federal rules restrict any use of the information to criminally investigate or prosecute any alcohol or drug abuse patient.[facility] HospitalIn the event this information is protected by the Federal Confidentiality of Alcohol and Drug Abuse Patient Records regulations: The Federal rules restrict any use of the information to criminally investigate or prosecute any alcohol or drug abuse patient.[facility] HospitalIn the event this information is protected by the Federal Confidentiality of Alcohol and Drug Abuse Patient Records regulations: The Federal rules restrict any use of the information to criminally investigate or prosecute any alcohol or drug abuse patient.[facility] HospitalIn the event this information is protected by the Federal Confidentiality of Alcohol and Drug Abuse Patient Records regulations: The Federal rules restrict any use of the information to criminally investigate or prosecute any alcohol or drug abuse patient.[facility] HospitalIn the event this information is protected by the Federal Confidentiality of Alcohol and Drug Abuse Patient Records regulations: The Federal rules restrict any use of the information to criminally investigate or prosecute any alcohol or drug abuse patient.[facility] HospitalIn the event this information is protected by the Federal Confidentiality of Alcohol and Drug Abuse Patient Records regulations: The Federal rules restrict any use of the information to criminally investigate or prosecute any alcohol or drug abuse patient.[facility] HospitalIn the event this information is protected by the Federal Confidentiality of Alcohol and Drug Abuse Patient Records regulations: The Federal rules restrict any use of the information to criminally investigate or prosecute any alcohol or drug abuse patient.[facility] HospitalIn the event this information is protected by the Federal Confidentiality of Alcohol and Drug Abuse Patient Records regulations: The Federal rules restrict any use of the information to criminally investigate or prosecute any alcohol or drug abuse patient.[facility] HospitalIn the event this information is protected by the Federal Confidentiality of Alcohol and Drug Abuse Patient Records regulations: The Federal rules restrict any use of the information to criminally investigate or prosecute any alcohol or drug abuse patient.[facility] HospitalIn the event this information is protected by the Federal Confidentiality of Alcohol and Drug Abuse Patient Records regulations: The Federal rules restrict any use of the information to criminally investigate or prosecute any alcohol or drug abuse patient.[facility] HospitalIn the event this information is protected by the Federal Confidentiality of Alcohol and Drug Abuse Patient Records regulations: The Federal rules restrict any use of the information to criminally investigate or prosecute any alcohol or drug abuse patient.[facility] HospitalIn the event this information is protected by the Federal Confidentiality of Alcohol and Drug Abuse Patient Records regulations: The Federal rules restrict any use of the information to criminally investigate or prosecute any alcohol or drug abuse patient.[facility] HospitalIn the event this information is protected by the Federal Confidentiality of Alcohol and Drug Abuse Patient Records regulations: The Federal rules restrict any use of the information to criminally investigate or prosecute any alcohol or drug abuse patient.[facility] HospitalIn the event this information is protected by the Federal Confidentiality of Alcohol and Drug Abuse Patient Records regulations: The Federal rules restrict any use of the information to criminally investigate or prosecute any alcohol or drug abuse patient.[facility] HospitalIn the event this information is protected by the Federal Confidentiality of Alcohol and Drug Abuse Patient Records regulations: The Federal rules restrict any use of the information to criminally investigate or prosecute any alcohol or drug abuse patient.[facility] HospitalIn the event this information is protected by the Federal Confidentiality of Alcohol and Drug Abuse Patient Records regulations: The Federal rules restrict any use of the information to criminally investigate or prosecute any alcohol or drug abuse patient.[facility] HospitalIn the event this information is protected by the Federal Confidentiality of Alcohol and Drug Abuse Patient Records regulations: The Federal rules restrict any use of the information to criminally investigate or prosecute any alcohol or drug abuse patient.[facility] HospitalIn the event this information is protected by the Federal Confidentiality of Alcohol and Drug Abuse Patient Records regulations: The Federal rules restrict any use of the information to criminally investigate or prosecute any alcohol or drug abuse patient.[facility] HospitalIn the event this information is protected by the Federal Confidentiality of Alcohol and Drug Abuse Patient Records regulations: The Federal rules restrict any use of the information to criminally investigate or prosecute any alcohol or drug abuse patient.[facility] HospitalIn the event this information is protected by the Federal Confidentiality of Alcohol and Drug Abuse Patient Records regulations: The Federal rules restrict any use of the information to criminally investigate or prosecute any alcohol or drug abuse patient.[facility] HospitalIn the event this information is protected by the Federal Confidentiality of Alcohol and Drug Abuse Patient Records regulations: The Federal rules restrict any use of the information to criminally investigate or prosecute any alcohol or drug abuse patient.[facility] HospitalIn the event this information is protected by the Federal Confidentiality of Alcohol and Drug Abuse Patient Records regulations: The Federal rules restrict any use of the information to criminally investigate or prosecute any alcohol or drug abuse patient.[facility] HospitalIn the event this information is protected by the Federal Confidentiality of Alcohol and Drug Abuse Patient Records regulations: The Federal rules restrict any use of the information to criminally investigate or prosecute any alcohol or drug abuse patient.[facility] HospitalIn the event this information is protected by the Federal Confidentiality of Alcohol and Drug Abuse Patient Records regulations: The Federal rules restrict any use of the information to criminally investigate or prosecute any alcohol or drug abuse patient.[facility] HospitalIn the event this information is protected by the Federal Confidentiality of Alcohol and Drug Abuse Patient Records regulations: The Federal rules restrict any use of the information to criminally investigate or prosecute any alcohol or drug abuse patient.[facility] HospitalIn the event this information is protected by the Federal Confidentiality of Alcohol and Drug Abuse Patient Records regulations: The Federal rules restrict any use of the information to criminally investigate or prosecute any alcohol or drug abuse patient.[facility] HospitalIn the event this information is protected by the Federal Confidentiality of Alcohol and Drug Abuse Patient Records regulations: The Federal rules restrict any use of the information to criminally investigate or prosecute any alcohol or drug abuse patient.[facility] HospitalIn the event this information is protected by the Federal Confidentiality of Alcohol and Drug Abuse Patient Records regulations: The Federal rules restrict any use of the information to criminally investigate or prosecute any alcohol or drug abuse patient.[facility] HospitalIn the event this information is protected by the Federal Confidentiality of Alcohol and Drug Abuse Patient Records regulations: The Federal rules restrict any use of the information to criminally investigate or prosecute any alcohol or drug abuse patient.[facility] Reason for Visit (unrecogniz ed section and content) Reason Comments Consult Specialty Diagnoses / Procedures Referred By Contac t Referred To Contact Endocrinology Diagnoses 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, unspecified laterality (HCC) Procedures CONSULT TO ENDOCRINOLOGY OFFICE/OUTPATIENT [facility] 60-74 MINUTES Dennys Baez MD [address] [place] [address] Referral ID Status Reason Start Date Expiration Date V isits Requested Visits Authorized [id number] Closed PCP Requested Referral 06/19/2021 06/19/2022 1 1 Reason Comments Orders Reason Onset Date Comments Population Health Navigation Outreach 08/22/2021 [place] Attribution Reason Onset Date Comments Refill Request 10/06/2021 Reason Onset Date Comments Refill Request 11/08/2021 Reason Comments Orders [facility] Home Health Orde rs Reason Comments OT Plan of Care Reason Comments home health calling report, need verbal orders Reason Comments Hospital Follow Up Reason Comments report of evelevated blood pressure Reason Comments Low BS episodes Reason Comments Patient Update Reason Comments Results Reason Comments Assisted Updated Plan of Care/Blo od Sugar update [...] Comments questions from home health emiliano e services account manager Reason Comments Patient Update Results Reason Comments Vomiting Reason Comments Hospital Admission Reason Comments Blood Pressure Reason Comments Appt problem Reason Comments Hospital F/U Reason Comments Orders Patient Update Reason Comments home health plan of care Reason Onset Date Comments Refill Request 04/09/2022 Reason Comments Assisted Plan of Care Reason Comments OT POC and question Reason Comments Home Health PT Update Reason Comments Referral Request [facility] No [facility] needed Reason Comments Weakness Reason Comments Social Work Services Reason Comments Dr Terry office requesting records Reason Comments Orders OT Reason Comments Follow Up Long-Term Dischar ge follow up Reason Comments Patient [...] Comments Population Health Navigation Outreach 08/02/2022 Navigator [place] care gap outreach Reason Onset Date Comments Refill Request 09/13/2022 Reason Comments Recheck 3 month follow up Reason Comments Refill Request Reason Onset Date Comments Refill Request 10/17/2022 Reason Comments Referral - Kidney Txp Reason Comments Referral - Kidney Txp Follow Up Reason Onset Date Comments Refill Request 01/11/2023 Reason Onset Date Comments Population Health Navigation Outreach 01/25/2023 [place] care gaps Reason Comments Diabetic Eye Exam Type 1 IDDM Reason Comments Patient Education Reason Comments Transplant Evaluation Reason Comments Home Health Nursing Request Reason Comments [facility] Reason Onset Date Comments Refill Request 02/25/2023 Reason Comments Follow Up Reason Comments Patient Question Care Teams (unrecognized sec tion and content) Sub Master Relationship Specialty Start Date End Date Dennys Baez MD [address] [place] [address] PCP - General Family Practice 12/26/11 [facility] [address] [place] [address] Other 03/17/19 [facility], [place] 04/13/19 [facility] services account manager 04/29/19 Sub Master Relationship Specialty Start Date End Date Dennys Baez MD [address] [place] [address] PCP - General Family Practice 12/26/11 [facility] [address] [place] [address] Other 03/17/19 [facility], [place] 04/13/19 [facility] services account manager 04/29/19 Sub Master Relationship Specialty Start Date End Date Dennys Baez MD [address] [place] [address] PCP - General Family Practice 12/26/11 [facility] [address] [place] [address] Other 03/17/19 [facility], [place] 04/13/19 [facility] care source services account manager 04/29/19 Sub Master Relationship Specialty Start Date End Date Dennys Baez MD [address] [place], [place] [id number] [phone] PCP - General Family Practice 12/26/11 [facility] [address] [place] [address] Other 03/17/19 [facility], [place] 04/13/19 [facility] services account manager 04/29/19 Sub Master Relationship Specialty Start Date End Date Dennys Baez MD [address] [place], [place] [id number] PCP - General Family Practice 12/26/11 [facility] [address] [place] [address] Other 03/17/19 [facility], [place] 04/13/19 [facility] services account manager 04/29/19 Sub Master Relationship Specialty Start Date End Date Dennys Baez MD [address] [place], [place] [id number] PCP - General Family Practice 12/26/11 [facility] [address] [place] [address] Other 03/17/19 [facility], [place] 04/13/19 [facility] services account manager 04/29/19 Sub Master Relationship Specialty Start Date End Date Dennys Baez MD [address] [place] [address] PCP - General Family Practice 12/26/11 [facility] [address] [place] [address] Other 03/17/19 [facility] [place] 04/13/19 [facility] care source services account manager 04/29/19 Sub Master Relationship Specialty Start Date End Date Dennys Baez MD [address] [place], [place] [id number] PCP - General Family Medicine 12/26/11 [facility] [address] [place] [address] Other 03/17/19 [facility], [place] 04/13/19 [facility] account manager 04/29/19 Sub Master Relationship Specialty Start Date End Date Dennys Baez MD [address] [place], [place] 237491 PCP - General Family Medicine 12/26/11 [facility] [address] [place] [address] Other 03/17/19 [facility], [place] 04/13/19 [facility] care [facility] account manager 04/29/19 Sub Master Relationship Specialty Start Date End Date Dennys Baez MD [address] [place], [place] 537391 PCP - General Family Medicine 12/26/11 [facility] [address] [place], [place] [id number] Other 03/17/19 [facility], [place] 04/13/19 [facility] care source services account manager 04/29/19 Sub Master Relationship Specialty Start Date End Date Dennys Baez MD [address] [place], [place] 702121 PCP - General Family Medicine 12/26/11 [facility] [address] [place], [place] [id number] Other 03/17/19 [facility], [place] 04/13/19 [facility] care source services account manager 04/29/19 Sub Master Relationship Specialty Start Date End Date Dennys Baez MD [address] [place], [place] [id number] PCP - General Family Medicine 12/26/11 [facility] [address] [place] [address] Other 03/17/19 [facility], [place] 04/13/19 [facility] care source services account manager 04/29/19 Sub Master Relationship Specialty Start Date End Date Dennys Baez MD [address] [place], [place] 490761 PCP - General Family Medicine 12/26/11 [facility] [address] [place] [address] Other 03/17/19 [facility], [place] 04/13/19 [facility] care source services account manager 04/29/19 Sub Master Relationship Specialty Start Date End Date Dennys Baez MD [address] [place] [address] PCP - General Family Medicine 12/26/11 [facility] [address] [place] [address] Other 03/17/19 [facility] [place] 04/13/19 [facility] care source services account manager 04/29/19 Sub Master Relationship Specialty Start Date End Date Dennys Baez MD [address] [place] [address] PCP - General Family Medicine 12/26/11 [facility] [address] [place] [address] Other 03/17/19 [facility], [place] 04/13/19 [facility] care source services account manager 04/29/19 Sub Master Relationship Specialty Start Date End Date Dennys Baez MD [address] [place], [place] [id number] PCP - General Family Medicine 12/26/11 [facility] [address] [place] [address] Other 03/17/19 [facility], [place] 04/13/19 [facility] care source services account manager 04/29/19 Sub Master Relationship Specialty Start Date End Date Dennys Baez MD [address] [place] [address] PCP - General Family Medicine 12/26/11 [facility] [address] [place] [address] Other 03/17/19 [facility], [place] 04/13/19 [facility] care source services account manager 04/29/19 Sub Master Relationship Specialty Start Date End Date Dennys Baez MD [address] [place] [address] PCP - General Family Medicine 12/26/11 [facility] [address] [place] [address] Other 03/17/19 [facility], [place] 04/13/19 [facility] care source services account manager 04/29/19 Sub Master Relationship Specialty Start Date End Date Dennys Baez MD [address] [place], [place] [id number] PCP - General Family Medicine 12/26/11 [facility] [address] [place] [address] Other 03/17/19 [facility], [place] 04/13/19 [facility] care source services account manager 04/29/19 Sub Master Relationship Specialty Start Date End Date Dennys Baez MD [address] [place], [place] 521011 PCP - General Family Medicine 12/26/11 [facility] [address] [place] [address] Other 03/17/19 [facility], [place] 04/13/19 [facility] care source services account manager 04/29/19 Sub Master Relationship Specialty Start Date End Date eDnnys Baez MD [address] [place] [address] PCP - General Family Medicine 12/26/11 [facility] [address] [place] [address] Other 03/17/19 [facility], [place] 04/13/19 [facility] care source services account manager 04/29/19 Sub Master Relationship Specialty Start Date End Date Dennys Baez MD [address] [place] [address] PCP - General Family Medicine 12/26/11 [facility] [address] [place] [address] Other 03/17/19 [facility], [place] 04/13/19 [facility] care source services account manager 04/29/19 Sub Master Relationship Specialty Start Date End Date Dennys Baez MD [address] [place] [address] PCP - General Family Medicine 12/26/11 [facility] [address] [place] [address] Other 03/17/19 [facility], [place] 04/13/19 [facility] care source services account manager 04/29/19 Sub Master Relationship Specialty Start Date End Date Dennys Baez MD [address] [place] [address] PCP - General Family Medicine 12/26/11 [facility] [address] [place] [address] Other 03/17/19 Medical, [place] 04/13/19 [facility] care source services account manager 04/29/19 Sub Master Relationship Specialty Start Date End Date Dennys Baez MD [address] [place] [address] PCP - General Family Medicine 12/26/11 [facility] [address] [place] [address] Other 03/17/19 [facility], [place] 04/13/19 [facility] care source services account manager 04/29/19 Sub Master Relationship Specialty Start Date End Date Dennys Baez MD [address] [place] [address] PCP - General Family Medicine 12/26/11 [facility] [address] [place] [address] Other 03/17/19 [facility], [place] 04/13/19 [facility] care source services account manager 04/29/19 Sub Master Relationship Specialty Start Date End Date Dennys Baez MD [address] [place], [place] 067851 PCP - General Family Medicine 12/26/11 [facility] [address] [place] [address] Other 03/17/19 [facility], [place] 04/13/19 [facility] care source services account manager 04/29/19 Sub Master Relationship Specialty Start Date End Date Dennys Baez MD [address] [place] [address] PCP - General Family Medicine 12/26/11 [facility] [address] [place] [address] Other 03/17/19 [facility], [place] 04/13/19 [facility] care source services account manager 04/29/19 Sub Master Relationship Specialty Start Date End Date Dennys Baez MD [address] [place] [address] PCP - General Family Medicine 12/26/11 [facility] [address] [place] [address] Other 03/17/19 Medical, [place] 04/13/19 [facility] care source services account manager 04/29/19 Sub Master Relationship Specialty Start Date End Date Dennys Baez MD [address] [place] [address] PCP - General Family Medicine 12/26/11 [facility] [address] [place] [address] Other 03/17/19 [facility], [place] 04/13/19 [facility] care source services account manager 04/29/19 Sub Master Relationship Specialty Start Date End Date Dennys Baez MD [address] [place] [address] PCP - General Family Medicine 12/26/11 [facility] [address] [place] [address] Other 03/17/19 [facility], [place] 04/13/19 [facility] care source services account manager 04/29/19 Sub Master Relationship Specialty Start Date End Date Dennys Baez MD [address] [place] [address] PCP - General Family Medicine 12/26/11 [facility] [address] [place] [address] Other 03/17/19 Medical, [place] 04/13/19 [facility] care source services account manager 04/29/19 Sub Master Relationship Specialty Start Date End Date Dennys Baez MD [address] [place], [place] 920521 PCP - General Family Medicine 12/26/11 [facility] [address] [place] [address] Other 03/17/19 [facility], [place] 04/13/19 [facility] care source services account manager 04/29/19 Sub Master Relationship Specialty Start Date End Date Dennys Baez MD [address] [place], [place] 895251 PCP - General Family Medicine 12/26/11 [facility] [address] [place], [place] 514303 Other 03/17/19 [facility], [place] 04/13/19 [facility] care source services account manager 04/29/19 Sub Master Relationship Specialty Start Date End Date Dennys Baez MD [address] [place], [place] 712611 PCP - General Family Medicine 12/26/11 [facility] [address] [place], [place] 612593 Other 03/17/19 [facility], [place] 04/13/19 [facility] care source services account manager 04/29/19 Sub Master Relationship Specialty Start Date End Date Dennys Baez MD [address] [place], [place] 710101 PCP - General Family Medicine 12/26/11 [facility] [address] [place] [address] Other 03/17/19 [facility], [place] 04/13/19 [facility] care source services account manager 04/29/19 Sub Master Relationship Specialty Start Date End Date Dennys Baez MD [address] [place], [place] 438371 PCP - General Family Medicine 12/26/11 [facility] [address] [place] [address] Other 03/17/19 [facility], [place] 04/13/19 [facility] care source services account manager 04/29/19 Sub Master Relationship Specialty Start Date End Date Dennys Baez MD [address] [place], [place] 859691 PCP - General Family Medicine 12/26/11 [facility] [address] [place] [address] Other 03/17/19 [facility], [place] 04/13/19 [facility] care source services account manager 04/29/19 Sub Master Relationship Specialty Start Date End Date Dennys Baez MD [address] [place], [place] 346081 PCP - General Family Medicine 12/26/11 [facility] [address] [place] [address] Other 03/17/19 [facility], [place] 04/13/19 [facility] care source services account manager 04/29/19 Sub Master Relationship Specialty Start Date End Date Dennys Baez MD [address] [place], [place] 353841 PCP - General Family Medicine 12/26/11 [facility] [address] [place] [address] [id number] Other 03/17/19 [facility], [place] 04/13/19 [facility] care source services account manager 04/29/19 Sub Master Relationship Specialty Start Date End Date Dennys Baez MD [address] [place] [address] [id number] PCP - General Family Medicine 12/26/11 [facility] [address] [place] [address] [id number] Other 03/17/19 [facility], [place] 04/13/19 [facility] care source services account manager 04/29/19 Sub Master Relationship Specialty Start Date End Date Dennys Baez MD [address] [place], [place] [id number] PCP - General Family Medicine 12/26/11 [facility] [address] [place] [address] [id number] Other 03/17/19 [facility], [place] 04/13/19 [facility] care source services account manager 04/29/19 Sub Master Relationship Specialty Start Date End Date Dennys Baez MD [address] [place], [place] 145911 PCP - General Family Medicine 12/26/11 [facility] [address] [place] [address] Other 03/17/19 Medical, [place] 04/13/19 [facility] care source services account manager 04/29/19 Sub Master Relationship Specialty Start Date End Date Dennys Baze MD [address] [place], [place] 983171 PCP - General Family Medicine 12/26/11 [facility] [address] [place], [place] 597493 Other 03/17/19 Medical, [place] 04/13/19 [facility] care source services account manager 04/29/19 Sub Master Relationship Specialty Start Date End Date Dennys Baez MD [address] [place], [place] 434051 PCP - General Family Medicine 12/26/11 [facility] [address] [place], [place] [id number] Other 03/17/19 Medical, [place] 04/13/19 [facility] care source services account manager 04/29/19 Sub Master Relationship Specialty Start Date End Date Dennys Baez MD [address] [place], [place] 355951 PCP - General Family Medicine 12/26/11 [facility] [address] [place] [address] Other 03/17/19 Medical, [place] 04/13/19 [facility] care source services account manager 04/29/19 Sub Master Relationship Specialty Start Date End Date Dennys Baez MD [address] [place], [place] [id number] PCP - General Family Medicine 12/26/11 [facility] [address] [place] [address] Other 03/17/19 [facility] [place] 04/13/19 [facility] care source services account manager 04/29/19 Sub Master Relationship Specialty Start Date End Date Dennys Baez MD [address] [place], [place] 786031 PCP - General Family Medicine 12/26/11 [facility] [address] [place], [place] 545373 Other 03/17/19 [facility] [place] 04/13/19 [facility] care source services account manager 04/29/19 Sub Master Relationship Specialty Start Date End Date Dennys Baez MD [address] [place] [address] PCP - General Family Medicine 12/26/11 [facility] [address] [place] [address] Other 03/17/19 [facility], [place] 04/13/19 [facility] care source services account manager 04/29/19 Sub Master Relationship Specialty Start Date End Date Dennys Baez MD [address] [place], [place] 603611 PCP - General Family Medicine 12/26/11 [facility] [address] [place] [address] Other 03/17/19 [facility], [place] 04/13/19 [facility] care source services account manager 04/29/19 Sub Master Relationship Specialty Start Date End Date Dennys Baez MD [address] [place], [place] 986191 PCP - General Family Medicine 12/26/11 [facility] [address] [place], [place] 264223 Other 03/17/19 [facility], [place] 04/13/19 [facility] care source services account manager 04/29/19 Sub Master Relationship Specialty Start Date End Date Dennys Baez MD [address] [place], [place] [id number] PCP - General Family Medicine 12/26/11 [facility] [address] [place] [address] [facility] account manager 04/29/19 Sub Master Relationship Specialty Start Date End Date Dennys Baez MD [address] [place], [place] 530651 PCP - General Family Medicine 12/26/11 [facility] [address] [place] [address] Other 03/17/19 [facility] [place] 04/13/19 [facility] care source services account manager 04/29/19 Sub Master Relationship Specialty Start Date End Date Dennys Baez MD [address] [place], [place] 931471 PCP - General Family Medicine 12/26/11 [facility] [address] [place] [address] Other 03/17/19 [facility] [place] 04/13/19 [facility] care source services account manager 04/29/19 FOR RECORDS PERTAINING TO PATIENTS [...] BE BASED ON THE PRIMARY CLINICAL RECORDS. [facility] provides no warranty or guarantee of the accuracy or completeness of information in this document.
== END 2023-06-03 12:07 | disposition home or self-care (01) ==
LOC: ED 11:59
PROVIDERS: Emergency Provider Emergency Medicine; PCP Family Medicine; Visit Provider Emergency Medicine
DX: M54.50 Low back pain, unspecified (principal); E11.51 Type 2 diabetes mellitus with diabetic peripheral angiopathy without gangrene; E11.22 Type 2 diabetes mellitus with diabetic chronic kidney disease; I12.0 Hypertensive chronic kidney disease with stage 5 chronic kidney disease or end stage renal disease; N18.5 Chronic kidney disease, stage 5; Z79.4 Long term (current) use of insulin; D64.9 Anemia, unspecified; I89.0 Lymphedema, not elsewhere classified; G89.4 Chronic pain syndrome
CPT/HCPCS: 99282

== ENCOUNTER 2023-09-25 10:30 | Outpatient (RCR) | payer MEDICARE, MEDICAID, SELFPAY ==
[2023-09-04 10:09] VITALS: BP 154/95; PULSE 92; RESP 18; TEMP 35.6
--- NOTE | 2023-09-04 11:57 | PCM.WC.PN ---
History of Present Illness Date of Service: 09/04/23 Chief Complaint: left heel ulcer left ankle ulcer- healed History of Wound: A 62-year-old female who presents to the wound care center today for left heel ulceration and bilateral lower extremity edema with multiple leg wounds secondary to previous blisters. In October 2019, patient had rubbing in shoes while shopping which led to a blister that developed into an ulceration. Patient was then seen by Dewey Amezquita.P.M. for wound care. Patient then became infected and was admitted to the hospital. Patient was noted to have OM on MRI. Patient wanted to avoid surgery so a mcc course of appropriate IV antibiotics was the treatment chosen. Patient was also noted to have hyperglycemia and has worked with hospitalist and PCP to try to get better control. Blood sugar levels remain elevated. Patient also had LEAS obtained in the hospital which suggested patient had the proper blood flow to allow healing. 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 Patient has since been seen on a weekly basis in office with progression and regression of wound noted over the weeks. Patient has tried various dressing options including wet to dry and santyl. The most progress was noted with Santyl but patient ran out and was unable to refill due to insurance issues. During which time the wound regressed. She also has an offloading surgical shoe and offloading boot to relieve pressure. Patient care is henceforth being carried out at the wound care center. Patient not currently on any antibiotics. Patient has since began skin graft aplications significant improvement is been noted to her foot overall. Patient has finished epifix graft applications with some very small remaining wound noted to left heel. Patient has new wounds noted to bilateral third digits. The right 3rd digit wound has healed. Her left ankle ulcer remains healed Patient relates that ambulation is getting easier and she is rebuilding her strength slowly. She has not had any worsening of minor remaining heel wound since beginning ambulation again. 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 Her has been helping her change the dressings daily to the left heel. She had been following in the wound care center in 2021 for left heel ulceration but was subsequently lost to follow-up. She cites transportation issues. She presents to the wound care center today for continued care of her left heel ulceration and bilateral lower extremity wounds secondary to edema. Subjective Subjective Mrs. Sprague is a 8-year-old diabetic female presenting to the wound care center today for follow-up evaluation of full-thickness wounds to left leg. Patient states wound started proximately 1 to 2 weeks ago. She was doing treatment from an outside provider with collagen. She states that there are scabs at this time. No compression. Blood sugar under control. Denies trauma. Denies constitutional symptoms. Other complaints at this time. Objective Data Objective Data Vital Signs: Vital Signs Temp Pulse Resp BP O2 Del Method 96.0 F L 92 18 154/95 H Room Air 09/04/23 10:09/04/23 10:09/04/23 10:09/04/23 10:09/04/23 10:09 Oxygen Delivery Method Room Air Physical Exam Narrative Vascular: DP and PT pulses are faintly palpable secondary to edema. Nonpitting edema appreciated bilateral extremity. Evidence of hemosiderin deposits bilaterally. Skin temperature is warm to warm from proximal ankle to distal digits with no focal increase appreciated. Neurological: Light touch intact. Protective sensation is diminished. Dermatological: 2 full-thickness ulcerations appreciated to the left lower extremity on the lateral and posterior aspects. Left lateral ulceration measures 2.0 x 1.8 x 0.1 cm. Left posterior calf wound measures 0.9 x 0.4 x 0.1 cm. Sanguinous drainage appreciated. No malodor probe to bone or sign of infection. Excisional debridement down to and including subcutaneous tissue with a number 5 mm dermal curette to the left lateral ulceration.. Right measurement was sanguinous crust. Postdebridement measurement is 2.0 x 1.8 x 0.1 cm. Excisional debridement down to and including subcutaneous tissue with a number 5 mm dermal curette to the left posterior ulceration. Predebridement measurement was sanguinous crust. Postdebridement measurement is 0.9 x 0.4 x 0.1 cm. Musculoskeletal: Muscle strength deferred. Mild pain to palpation of full-thickness ulceration to left leg. No pain with calf pressure. Debridement Note Debridement Note Debridement Free Text: Excisional debridement down to and including subcutaneous tissue with a number 5 mm dermal curette to the left lateral ulceration.. Right measurement was sanguinous crust. Postdebridement measurement is 2.0 x 1.8 x 0.1 cm. Excisional debridement down to and including subcutaneous tissue with a number 5 mm dermal curette to the left posterior ulceration. Predebridement measurement was sanguinous crust. Postdebridement measurement is 0.9 x 0.4 x 0.1 cm. Post-Debridement Measurements and Additional Note: Post-Debridement Measurements/Treatment SAMARIA - Nurse 1 - General Ulcer Assessment Start: 09/04/23 10:06 Freq: Status: Active Protocol: MOOK Activity Type Activity Date Activity User E-sign Co-sign Detail Recorded Client Recorded Date Recorded By Document 09/04/23 10:09 KW Wound center 09/04/23 10:24 KW 09/04/23 10:09 - Today's Visit Information Type of service Initial Visit Arrival Mode Ambulatory, Walker Patient Identification Verified (Name & Yes ) Vital Signs Temperature (97.8 F-99.1 F) 96.0 F L Temperature Source Temporal Pulse Rate (60-100) 92 Pulse Location Monitor Respiratory Rate (12-18) 18 Respiratory rate source Observation Oxygen Delivery Method Room Air Blood Pressure (90/60-120/80) 154/95 H Blood Pressure Mean (mm Hg) 114 Source Monitor Position Semi-Fowlers Blood Pressure Location Left Arm History Since Last Visit- (Skip if this is Patient's initial visit) Left Footwear Slipper Right Footwear Slipper Pain Scale: 0-10 Numeric Is Patient Pain Free? Yes Lower Extremity Assessment/ Foot Assessment/ Toe Nail Assessment Right -Posterior Tibial Palpable Yes -Dorsalis Pedis Palpable Yes -Dorsalis Pedis Doppler Monophasic -Hair Growth on Legs No -Hair Growth on Toes No -Temperature of Extremity Cool -Thick Yes -Discolored Yes -Deformed Yes -Improper Length & Hygeine Yes Left -Posterior Tibial Palpable Yes -Posterior Tibial Doppler Multiphasic -Dorsalis Pedis Palpable Yes -Extremity Color Red -Hair Growth on Legs No -Hair Growth on Toes No -Temperature of Extremity Cool -Capillary Refill Less than 3 Seconds -Thick Yes -Discolored Yes -Deformed Yes -Improper Length & Hygeine Yes Communication Assessment Preferred language Thai Able to Read Yes Able to Write Yes Communication Tools None Caregiver Communication Skills No Impairment Impairment Right Hearing Abillity Normal Left Hearing Abillity Normal Visual Assistive Devices Glasses Teaching Assessment Preferences Verbal,Written, Demonstration Barriers to Learning None Readiness To Learn Excellent Willingness to Engage in Self Management High Activies Readiness to Engage in Self Management High Activities Anxiety Level Calm Cooperation Cooperative Perception Coherent Interest in Health Problem Asks Questions Education Importance Acknowledges Need Does Patient Smoke tobacco or other Yes substances Is Patient Diabetic Yes Functional Assessment Recent Decline in Ability to Perform Ambulation, Bathing,Lower Body Dressing, Toileting, Transferring WC - Nurse 1 - General Ulcer Measurement Start: 09/04/23 10:06 Freq: Status: Active Protocol: Activity Type Activity Date Activity User E-sign Co-sign Detail Recorded Client Recorded Date Recorded By Document 09/04/23 10:09 Wound center 09/04/23 10:24 KW 09/04/23 10:09 Wound Center Nurse 1 #21 LT LAT LE cluster -Current Size (cm) - Length 1.2 -Current Size (cm) - Width 1 -Current Size (cm) - Depth 0.1 -Total Square Cm 1.2 -Date of Last Picture (Recall this 09/04/23 field) -Exudate Amt None Present -Texture (Bren-wound Skin Appearance) Assessed -Moisture (Bren-wound Skin Appearance) Assessed -Color (Bren-wound Skin Appearance) Assessed -Temperature (Bren-wound Skin No Abnormality Appearance) (Pt Warm) -Tenderness on Palpation (Bren-wound No Skin Appearance) -Ulcer Cleansing Soap and Water -Foul Odor after Cleansing No -Anesthetic Used 5% Lidocaine Gel -Wound Comment(s) SCABBED #20 POST LLE -Current Size (cm) - Length 4.8 -Current Size (cm) - Width 5.5 -Current Size (cm) - Depth 0.1 -Total Square Cm 26.40 -Date of Last Picture (Recall this 09/04/23 field) -Exudate Amt None Present -Wound Margin Distinct, Outline Attached -Texture (Bren-wound Skin Appearance) Assessed -Moisture (Bren-wound Skin Appearance) Assessed -Color (Bren-wound Skin Appearance) Assessed, Erythema -Temperature (Bren-wound Skin No Abnormality Appearance) (Pt Warm) -Tenderness on Palpation (Bren-wound No Skin Appearance) -Ulcer Cleansing Soap and Water -Foul Odor after Cleansing No -Anesthetic Used 5% Lidocaine Gel -Wound Comment(s) SCABBED Right Calf (cm) 35.4 Right Ankle (cm) 24.3 Left Calf (cm) 37.5 Left Ankle (cm) 23.4 - Nurse 2 - General Ulcer CM Notes Start: 09/04/23 10:06 Freq: Status: Active Protocol: Activity Type Activity Date Activity User E-sign Co-sign Detail Recorded Client Recorded Date Recorded By Document 09/04/23 10:44 [id number] 09/04/23 10:52 JAUN 09/04/23 10:44 Wound Center Nurse [address] [facility] cluster -Time 10:51 -Correct Patient Yes -Correct Side, Site, Position Yes -Correct Procedure Yes -Procedure Performed Yes -Type of Procedure Debridement -Clinical Debridement Subcutaneous -Tissue Removed Subcutaneous -Post Debridement (cm) - Length 2.0 -Post Debridement (cm) - Width 1.8 -Post Debridement (cm) - Depth 0.1 -Total Square (Post) (cm) 3.60 -Area of Debridement (cm) - Length 2.0 -Area of Debridement (cm) - Width 1.8 -Total Square (Area) (cm) 3.60 -Tunneling No -Undermining/Tunneling No -Circular Undermining No -Wound/Ulcer Outcome Not Healed -Ulcer Cleansing Rinsed/ Irrigated with Saline -Foul Odor after Cleansing No -Bioengineered Tissue No -Bleeding Controlled with Pressure -Treatment Response Procedure Tolerated Well -Offloading No -Debridement - Subq, 1st 20sq cm No #20 POST LLE -Time 10:51 -Correct Patient Yes -Correct Side, Site, Position Yes -Correct Procedure Yes -Procedure Performed Yes -Type of Procedure Debridement -Clinical Debridement Subcutaneous -Tissue Removed Subcutaneous -Post Debridement (cm) - Length 0.9 -Post Debridement (cm) - Width 0.4 -Post Debridement (cm) - Depth 0.1 -Total Square (Post) (cm) 0.36 -Area of Debridement (cm) - Length 0.9 -Area of Debridement (cm) - Width 0.4 -Total Square (Area) (cm) 0.36 -Tunneling No -Undermining/Tunneling No -Circular Undermining No -Wound/Ulcer Outcome Not Healed -Ulcer Cleansing Rinsed/ Irrigated with Saline -Foul Odor after Cleansing No -Bioengineered Tissue No -Bleeding Controlled with Pressure -Treatment Response Procedure Tolerated Well -Offloading No -Debridement - Subq, 1st 20sq cm Yes Pain Scale: 0-10 Numeric Is Patient Pain Free? Yes - Nurse 3 - General Ulcer D/C NN Start: 09/04/23 10:06 Freq: Status: Active Protocol: Activity Type Activity Date Activity User E-sign Co-sign Detail Recorded Client Recorded Date Recorded By Document 09/04/23 11:09 [facility] 09/04/23 11:10 09/04/23 11:09 Wound Care Center Nurse 3 #21 LT LAT LE cluster -Ulcer Cleansing Not Cleansed -Foul Odor after Cleansing No -Primary Dressing Applied Promogran Samantha Matter -Primary Dressing Covered/Secured with Dry Gauze & Roll Gauze, Secured with Tape -Promogran Samantha Matter 1 #20 POST LLE -Primary Dressing Covered/Secured with Dry Gauze, Secured with Tape Right -Lotion applied to leg before No compression wrap -Tubular Bandage Single Layer -Size of Tubigrip Used Size E -Size E ($) 1 Left -Tubular Bandage Single Layer -Size of Tubigrip Used Size E -Size E ($) 1 Pain Scale: 0-10 Numeric Is Patient Pain Free? Yes - Visit Discharge Discharge Condition Stable Ambulatory Status Ambulatory, Walker Transportation Private Auto Clinical Summary of Care Provided Yes Assessment/Plan Assessment/Plan (1) Non-pressure chronic ulcer of left calf with fat layer exposed: CODE(S): L97.222 - Non-pressure chronic ulcer of left calf with fat layer exposed PLAN: Patient was examined and evaluated. All findings were discussed with the patient. All questions were answered to the patient's satisfaction. Excisional debridement down to and including subcutaneous tissue with a number 5 mm dermal curette to the left lateral ulceration.. Right measurement was sanguinous crust. Postdebridement measurement is 2.0 x 1.8 x 0.1 cm. Excisional debridement down to and including subcutaneous tissue with a number 5 mm dermal curette to the left posterior ulceration. Predebridement measurement was sanguinous crust. Postdebridement measurement is 0.9 x 0.4 x 0.1 cm. Left extremity were cleaned and patted dry. Moist Samantha was applied to the left ulcerations followed by bordered foam and Tubigrip. Patient will follow-up with nursing visits for continued evaluation. Patient was understanding of this. Follow-up at the wound care center with with Dr. Serrano in 1 week, then Dr. Solano 1 week after. (2) Peripheral vascular disease: CODE(S): I73.9 - Peripheral vascular disease, unspecified
[2023-09-11 11:07] VITALS: BP 150/82; PULSE 88; RESP 18; TEMP 36
[2023-09-18 10:42] VITALS: BP 134/72; PULSE 87; RESP 16; TEMP 36.1
--- NOTE | 2023-09-18 16:21 | PN.PCM_ITS ---
History of Present Illness Date of Service: 09/18/23 Chief Complaint: left heel ulcer left ankle ulcer- healed History of Wound: A 62-year-old female who presents to the wound care center today for left heel ulceration and bilateral lower extremity edema with multiple leg wounds secondary to previous blisters. In October 2019, patient had rubbing in shoes while shopping which led to a blister that developed into an ulceration. Patient was then seen by Dewey Amezquita.P.M. for wound care. Patient then became infected and was admitted to the hospital. Patient was noted to have OM on MRI. Patient wanted to avoid surgery so a termite control servicer course of appropriate IV antibiotics was the treatment chosen. Patient was also noted to have hyperglycemia and has worked with hospitalist and PCP to try to get better control. Blood sugar levels remain elevated. Patient also had LEAS obtained in the hospital which suggested patient had the proper blood flow to allow healing. Patient has since finished termite control servicer course of antibiotics. Patient has since been seen on a weekly basis in office with progression and regression of wound noted over the weeks. Patient has tried various dressing options including wet to dry and santyl. The most progress was noted with Santyl but patient ran out and was unable to refill due to insurance issues. During which time the wound regressed. She also has an offloading surgical shoe and offloading boot to relieve pressure. Patient care is henceforth being carried out at the wound care center. Patient not currently on any antibiotics. Patient has since began skin graft aplications significant improvement is been noted to her foot overall. Patient has finished epifix graft applications with some very small remaining wound noted to left heel. Patient has new wounds noted to bilateral third digits. The right 3rd digit wound has healed. Her left ankle ulcer remains healed Patient relates that ambulation is getting easier and she is rebuilding her strength slowly. She has not had any worsening of minor remaining heel wound s jenae beginning ambulation again. 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 Her has been helping her change the dressings daily to the left heel. She had been following in the wound care center in 2021 for left heel ulceration but was subsequently lost to follow-up. She cites transportation issues. She presents to the wound care center today for continued care of her left heel ulceration and bilateral lower extremity wounds secondary to edema. Subjective Subjective Mrs. Sprague is a 62-year-old diabetic female presenting to the wound care center today for follow-up evaluation of full-thickness wounds to left leg. Patient states wound started proximately 1 to 2 weeks ago. She was doing treatment from an outside provider with collagen. She states that there are scabs at this time. No compression. Blood sugar under control. Denies trauma. Denies constitutional symptoms. Other complaints at this time. Objective Data Objective Data Vital Signs: Vital Signs Temp Pulse Resp BP O2 Del Method 96.9 F L 87 16 134/72 H Room Air 09/18/23 10:42 09/18/23 10:42 09/18/23 10:42 09/18/23 10:42 09/18/23 10:42 Oxygen Delivery Method Room Air Physical Exam Narrative Vascular: DP and PT pulses are faintly palpable secondary to edema. Nonpitting edema appreciated bilateral extremity. Evidence of hemosiderin deposits bilaterally. Skin temperature is warm to warm from proximal ankle to distal digits with no focal increase appreciated. Neurological: Light touch intact. Protective sensation is diminished. Dermatological: 2 full-thickness ulcerations appreciated to the left lower extremity on the lateral and posterior aspects, healed. Full-thickness ulceration appreciated to the right leg measuring 0.8 x 1.0 x 0.1 cm. Wound base is 100% granular nature. No sign of infection. Excisional debridement down to and including subcutaneous tissue with a number 5 mm dermal curette to the right lateral ulceration. Right measurement was sanguinous crust. Postdebridement measurement is 0.8 x 1.0 x 0.1 cm. Musculoskeletal: Muscle strength deferred. Mild pain to palpation of full- thickness ulceration to right leg. No pain with calf pressure. Debridement Note Debridement Note Debridement Free Text: Excisional debridement down to and including subcutaneous tissue with a number 5 mm dermal curette to the right lateral ulceration. Right measurement was sanguinous crust. Postdebridement measurement is 0.8 x 1.0 x 0.1 cm. Post-Debridement Measurements and Additional Note: Post-Debridement Measurements/Treatment SAMARIA - Nurse 1 - General Ulcer Assessment Start: 09/04/23 10:06 Freq: Status: Active Protocol: MOOK Activity Type Activity Date Activity User E-sign Co-sign Detail Recorded Client Recorded Date Recorded By Document 09/04/23 10:09 [facility] Wound center 09/04/23 10:24 KW Document 09/11/23 11:07 [facility] wound center 09/11/23 11:19 KW Document 09/18/23 10:42 [facility] 09/18/23 10:53 09/04/23 09/11/23 09/18/23 10:09 11:07 10:42 - Today's Visit Information Type of service Initial Visit Nurse-only Follow-up Visit Visit (Physician/PHLEBOTOMIST LAB ASSISTANT ) Arrival Mode Ambulatory, Ambulatory, Ambulatory, Walker Walker Walker Transfer Assistance None Patient Identification Verified (Name & Yes Yes Yes ) Finger Stick Blood Sugar(mg/dl) (if 164 indicated): Blood Sugar Stated by Patient Vital Signs Temperature (97.8 F-99.1 F) 96.0 F L 96.8 F L 96.9 F L Temperature Source Temporal Temporal Temporal Pulse Rate (60-100) 92 88 87 Pulse Location Monitor Monitor Monitor Respiratory Rate (12-18) 18 18 16 Respiratory rate source Observation Observation Observation Oxygen Delivery Method Room Air Room Air Room Air Blood Pressure (90/60-120/80) 154/95 H 150/82 H 134/72 H Blood Pressure Mean (mm Hg) 114 104 92 Source Monitor Monitor Monitor Position Semi-Fowlers Semi-Fowlers Sitting Blood Pressure Location Left Arm Right Arm Right Arm History Since Last Visit- (Skip if this is Patient's initial visit) Have you changed medications since your No No last visit? Any new allergies or adverse reactions No No Had a fall/change in ADL's that may No No increase risk of falls Signs or symptoms of abuse and/or No No neglect since last visit Have you been in the hospital since your No No last visit? Has dressing in place as prescribed Yes Yes Has compression in place as prescribed Yes Yes Has offloadiing in place as prescribed N/A N/A Experienced any changes in pain level or No No management Left Footwear Slipper Slipper No Footwear Right Footwear Slipper Slipper No Footwear Pain Scale: 0-10 Numeric Is Patient Pain Free? Yes Yes Yes Lower Extremity Assessment/ Foot Assessment/ Toe Nail Assessment Right -Posterior Tibial Palpable Yes -Dorsalis Pedis Palpable Yes -Dorsalis Pedis Doppler Monophasic -Hair Growth on Legs No -Hair Growth on Toes No -Temperature of Extremity Cool -Thick Yes -Discolored Yes -Deformed Yes -Improper Length & Hygeine Yes Left -Posterior Tibial Palpable Yes -Posterior Tibial Doppler Multiphasic -Dorsalis Pedis Palpable Yes -Extremity Color Red -Hair Growth on Legs No -Hair Growth on Toes No -Temperature of Extremity Cool -Capillary Refill Less than 3 Seconds -Thick Yes -Discolored Yes -Deformed Yes -Improper Length & Hygeine Yes Communication Assessment Preferred language Ivorian Able to Read Yes Able to Write Yes Communication Tools None Caregiver Communication Skills No Impairment Impairment Right Hearing Abillity Normal Left Hearing Abillity Normal Visual Assistive Devices Glasses Teaching Assessment Preferences Verbal,Written, Demonstration Barriers to Learning None Readiness To Learn Excellent Willingness to Engage in Self Management High Activies Readiness to Engage in Self Management High Activities Anxiety Level Calm Cooperation Cooperative Perception Coherent Interest in Health Problem Asks Questions Education Importance Acknowledges Need Does Patient Smoke tobacco or other Yes substances Is Patient Diabetic Yes Functional Assessment Recent Decline in Ability to Perform Ambulation, Bathing,Lower Body Dressing, Toileting, Transferring WC - Nurse 1 - General Ulcer Measurement Start: 09/04/23 10:06 Freq: Status: Active Protocol: Activity Type Activity Date Activity User E-sign Co-sign Detail Recorded Client Recorded Date Recorded By Document 09/04/23 10:09 Wound center 09/04/23 10:24 KW Document 09/18/23 10:42 [facility] 09/18/23 10:53 09/04/23 09/18/23 10:09 10:42 Wound Center Nurse 1 #21 LT LAT LE cluster -Current Size (cm) - Length 1.2 0.1 -Current Size (cm) - Width 1 0.1 -Current Size (cm) - Depth 0.1 0.1 -Total Square Cm 1.2 0.01 -Date of Last Picture (Recall this 09/04/23 field) -Photo Taken No -Epithelialization Large 67-100% -Tunneling No -Undermining/Tunneling No -Circular Undermining No -Exudate Amt None Present -Slough/Fibrin No -Necrosis Amt None Present (0 %) -Texture (Bren-wound Skin Appearance) Assessed No Abnormality, Assessed -Moisture (Bren-wound Skin Appearance) Assessed Assessed,Dry/ Scaly -Color (Bren-wound Skin Appearance) Assessed Assessed -Temperature (Bren-wound Skin No Abnormality No Abnormality Appearance) (Pt Warm) (Pt Warm) -Tenderness on Palpation (Bren-wound No Skin Appearance) -Ulcer Cleansing Soap and Water Soap and Water -Foul Odor after Cleansing No No -Anesthetic Used 5% Lidocaine Gel -Wound Comment(s) SCABBED #20 POST LLE -Combined with (Name of Wound-Exactly 0.1 as it is documented) -Current Size (cm) - Length 4.8 0.1 -Current Size (cm) - Width 5.5 0.1 -Current Size (cm) - Depth 0.1 -Total Square Cm 26.40 0.01 -Date of Last Picture (Recall this 09/04/23 field) -Epithelialization Medium 34-66% -Exudate Amt None Present None Present -Wound Margin Distinct, Distinct, Outline Outline Attached Attached -Texture (Bren-wound Skin Appearance) Assessed No Abnormality, Assessed -Moisture (Bren-wound Skin Appearance) Assessed Dry/Scaly -Color (Bren-wound Skin Appearance) Assessed, Assessed Erythema -Temperature (Bren-wound Skin No Abnormality No Abnormality Appearance) (Pt Warm) (Pt Warm) -Tenderness on Palpation (Bren-wound No Skin Appearance) -Ulcer Cleansing Soap and Water Soap and Water -Foul Odor after Cleansing No -Anesthetic Used 5% Lidocaine 5% Lidocaine Gel Gel -Wound Comment(s) SCABBED Right Calf (cm) 35.4 38 Right Ankle (cm) 24.3 26.5 Left Calf (cm) 37.5 36.5 Left Ankle (cm) 23.4 24 WC - Nurse 2 - General Ulcer CM Notes Start: 09/04/23 10:06 Freq: Status: Active Protocol: Activity Type Activity Date Activity User E-sign Co-sign Detail Recorded Client Recorded Date Recorded By Document 09/04/23 10:44 [id number] 09/04/23 10:52 Document 09/18/23 11:14 [id number] 09/18/23 11:17 09/04/23 09/18/23 10:44 11:14 Wound Center Nurse 2 #21 LT LAT LE cluster -Time 10:51 -Correct Patient Yes No -Correct Side, Site, Position Yes No -Correct Procedure Yes No -Procedure Performed Yes No -Type of Procedure Debridement -Clinical Debridement Subcutaneous -Tissue Removed Subcutaneous -Post Debridement (cm) - Length 2.0 0 -Post Debridement (cm) - Width 1.8 0 -Post Debridement (cm) - Depth 0.1 0 -Total Square (Post) (cm) 3.60 0 -Area of Debridement (cm) - Length 2.0 0 -Area of Debridement (cm) - Width 1.8 0 -Total Square (Area) (cm) 3.60 0 -Tunneling No -Undermining/Tunneling No -Circular Undermining No -Wound/Ulcer Outcome Not Healed Healed- Epithelialized -Ulcer Cleansing Rinsed/ Irrigated with Saline -Foul Odor after Cleansing No -Bioengineered Tissue No -Bleeding Controlled with Pressure -Treatment Response Procedure Tolerated Well -Offloading No -Debridement - Subq, 20sq cm No #20 POST LLE -Time 10:51 -Correct Patient Yes No -Correct Side, Site, Position Yes No -Correct Procedure Yes No -Procedure Performed Yes No -Type of Procedure Debridement -Clinical Debridement Subcutaneous -Tissue Removed Subcutaneous -Post Debridement (cm) - Length 0.9 0 -Post Debridement (cm) - Width 0.4 0 -Post Debridement (cm) - Depth 0.1 0 -Total Square (Post) (cm) 0.36 0 -Area of Debridement (cm) - Length 0.9 0 -Area of Debridement (cm) - Width 0.4 0 -Total Square (Area) (cm) 0.36 0 -Tunneling No -Undermining/Tunneling No -Circular Undermining No -Wound/Ulcer Outcome Not Healed Healed- Epithelialized -Ulcer Cleansing Rinsed/ Irrigated with Saline -Foul Odor after Cleansing No -Bioengineered Tissue No -Bleeding Controlled with Pressure -Treatment Response Procedure Tolerated Well -Offloading No -Debridement - Subq, 20sq cm Yes 22-right posterior leg -Time 11:16 -Correct Patient Yes -Correct Side, Site, Position Yes -Correct Procedure Yes -Procedure Performed Yes -Type of Procedure Debridement -Clinical Debridement Subcutaneous -Tissue Removed Subcutaneous -Post Debridement (cm) - Length 0.8 -Post Debridement (cm) - Width 1.0 -Post Debridement (cm) - Depth 0.1 -Total Square (Post) (cm) 0.80 -Area of Debridement (cm) - Length 0.8 -Area of Debridement (cm) - Width 1.0 -Total Square (Area) (cm) 0.80 -Tunneling No -Undermining/Tunneling No -Circular Undermining No -Wound/Ulcer Outcome Not Healed -Ulcer Cleansing Rinsed/ Irrigated with Saline -Foul Odor after Cleansing No -Bioengineered Tissue No -Bleeding Controlled with Pressure -Treatment Response Procedure Tolerated Well -Offloading No -Debridement - Subq, 1st 20sq cm Yes Pain Scale: 0-10 Numeric Is Patient Pain Free? Yes Yes - Nurse 3 - General Ulcer D/C NN Start: 09/04/23 10:06 Freq: Status: Active Protocol: Activity Type Activity Date Activity User E-sign Co-sign Detail Recorded Client Recorded Date Recorded By Document 09/04/23 11:09 [facility] 09/04/23 11:10 Document 09/11/23 11:07 wound center 09/11/23 11:19 Document 09/18/23 11:23 [facility] 09/18/23 11:24 09/04/23 09/11/23 09/18/23 11:09 11:07 11:23 Wound Care Center Nurse 3 #21 LT LAT LE cluster -Ulcer Cleansing Not Cleansed Soap and Water -Foul Odor after Cleansing No -Primary Dressing Applied Promogran Promogran Samantha Matter Samantha Matter -Primary Dressing Covered/Secured with Dry Gauze & Dry Gauze & Roll Gauze, Roll Gauze, Secured with Secured with Tape Tape -Promogran Samantha Matter 1 1 #20 POST LLE -Primary Dressing Covered/Secured with Dry Gauze, Dry Gauze Secured with Tape 22-right posterior leg -Primary Dressing Applied NonAdherent Contact Layer -Other Dressing c. hydrogel -Primary Dressing Covered/Secured with Dry Gauze & Roll Gauze, Secured with Tape BLE -Multi-Layered Wrap Application Multi-Layer Comp - Bilat ($ ) Right -Lotion applied to leg before No compression wrap -Tubular Bandage Single Layer Single Layer -Size of Tubigrip Used Size E Size E -Size E ($) 1 1 Left -Tubular Bandage Single Layer Single Layer -Size of Tubigrip Used Size E Size E -Size E ($) 1 1 Vital Signs Temperature (97.8 F-99.1 F) 96.8 F L Temperature Source Temporal Pulse Rate (60-100) 88 Pulse Location Monitor Respiratory Rate (12-18) 18 Respiratory rate source Observation Oxygen Delivery Method Room Air Blood Pressure (90/60-120/80) 150/82 H Blood Pressure Mean (mm Hg) 104 Source Monitor Position Semi-Fowlers Blood Pressure Location Right Arm Pain Scale: 0-10 Numeric Is Patient Pain Free? Yes Yes Yes WC - Visit Discharge Discharge Condition Stable Stable Stable Ambulatory Status Ambulatory, Ambulatory, Ambulatory, Walker Walker Walker Transportation Private Auto Private Auto Medication Reconcilliation completed & No No provided to patient/care provider Clinical Summary of Care Provided Yes Yes Yes Assessment/Plan Assessment/Plan (1) Non-pressure chronic ulcer of other part of right lower leg with fat layer exposed: CODE(S): L97.812 - Non-pressure chronic ulcer of other part of right lower leg with fat layer exposed PLAN: Patient was examined and evaluated. All findings were discussed with the patient. All questions were answered to the patient's satisfaction. Excisional debridement down to and including subcutaneous tissue with a number 5 mm dermal curette to the right lateral ulceration. Right measurement was sanguinous crust. Postdebridement measurement is 0.8 x 1.0 x 0.1 cm. The ulceration was dressed with hydrogel collagen and the 3M wrap was applied to the bilateral lower extremity. Follow-up at the wound care center with Dr. Solano in 1 week. (2) Peripheral vascular disease: CODE(S): I73.9 - Peripheral vascular disease, unspecified
[2023-09-25 10:45] VITALS: BP 149/72; PULSE 97; RESP 18; TEMP 36.6
--- NOTE | 2023-09-25 13:08 | PN.PCM_ITS ---
History of Present Illness Date of Service: 09/25/23 Chief Complaint: left heel ulcer left ankle ulcer- healed History of Wound: A 62-year-old female who presents to the wound care center today for left heel ulceration and bilateral lower extremity edema with multiple leg wounds secondary to previous blisters. In October 2019, patient had rubbing in shoes while shopping which led to a blister that developed into an ulceration. Patient was then seen by Dewey Amezquita.P.M. for wound care. Patient then became infected and was admitted to the hospital. Patient was noted to have OM on MRI. Patient wanted to avoid surgery so a terminal superintendent course of appropriate IV antibiotics was the treatment chosen. Patient was also noted to have hyperglycemia and has worked with hospitalist and PCP to try to get better control. Blood sugar levels remain elevated. Patient also had LEAS obtained in the hospital which suggested patient had the proper blood flow to allow healing. Patient has since finished terminal superintendent course of antibiotics. Patient has since been seen on a weekly basis in office with progression and regression of wound noted over the weeks. Patient has tried various dressing options including wet to dry and santyl. The most progress was noted with Santyl but patient ran out and was unable to refill due to insurance issues. During which time the wound regressed. She also has an offloading surgical shoe and offloading boot to relieve pressure. Patient care is henceforth being carried out at the wound care center. Patient not currently on any antibiotics. Patient has since began skin graft aplications significant improvement is been noted to her foot overall. Patient has finished epifix graft applications with some very small remaining wound noted to left heel. Patient has new wounds noted to bilateral third digits. The right 3rd digit wound has healed. Her left ankle ulcer remains healed Patient relates that ambulation is getting easier and she is rebuilding her strength slowly. She has not had any worsening of minor remaining heel wound s jenae beginning ambulation again. 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 Her has been helping her change the dressings daily to the left heel. She had been following in the wound care center in 2021 for left heel ulceration but was subsequently lost to follow-up. She cites transportation issues. She presents to the wound care center today for continued care of her left heel ulceration and bilateral lower extremity wounds secondary to edema. Subjective Subjective rsLakhwinder Sprague is a 62-year-old diabetic female presenting to the wound care center today for follow-up evaluation of full-thickness wounds to left leg. She has kept her bilateral compression dressing clean dry and intact. She denies any strikethrough. She denies trauma. Denies constitutional symptoms. No other complaints at this time. Objective Data Objective Data Vital Signs: Vital Signs Temp Pulse Resp BP O2 Del Method 97.9 F 97 18 149/72 H Room Air 09/25/23 10:45 09/25/23 10:45 09/25/23 10:45 09/25/23 10:45 09/25/23 10:45 Oxygen Delivery Method Room Air Physical Exam Narrative ascular: DP and PT pulses are faintly palpable secondary to edema. Nonpitting edema appreciated bilateral extremity. Evidence of hemosiderin deposits bilaterally. Skin temperature is warm to warm from proximal ankle to distal digits with no focal increase appreciated. Neurological: Light touch intact. Protective sensation is diminished. Dermatological: 2 full-thickness ulcerations appreciated to the left lower extremity on the lateral and posterior aspects, healed. Full-thickness ulceration appreciated to the right leg measuring 0.6 x 0.7 x 0.1 cm. Wound base is 100% granular nature. No sign of infection. Excisional debridement down to and including subcutaneous tissue with a number 5 mm dermal curette to the right lateral ulceration. Predebridement measurement is 0.5 x 0.6 x 0.1 cm. Postdebridement measurement is 0.6 x 0.7 x 0.1 cm. Musculoskeletal: Muscle strength deferred. Mild pain to palpation of full-thi ckness ulceration to right leg. No pain with calf pressure. Debridement Note Debridement Note Debridement Free Text: Excisional debridement down to and including subcutaneous tissue with a number 5 mm dermal curette to the right lateral ulceration. Predebridement measurement is 0.5 x 0.6 x 0.1 cm. Postdebridement measurement is 0.6 x 0.7 x 0.1 cm. Post-Debridement Measurements and Additional Note: Post-Debridement Measurements/Treatment SAMARIA - Nurse 1 - General Ulcer Assessment Start: 09/04/23 10:06 Freq: Status: Active Protocol: MOOK Activity Type Activity Date Activity User E-sign Co-sign Detail Recorded Client Recorded Date Recorded By Document 09/04/23 10:09 [facility] Wound center 09/04/23 10:24 KW Document 09/11/23 11:07 K[facility] wound center 09/11/23 11:19 KW Document 09/18/23 10:42 [facility] 09/18/23 10:53 Document 09/25/23 10:45 [place] [id number] 09/25/23 10:52 [place] 09/04/23 09/11/23 09/18/23 10:09 11:07 10:42 - Today's Visit Information Type of service Initial Visit Nurse-only Follow-up Visit Visit (Physician/HUMAN RESOURCES EXECUTIVE ASSISTANT ) Arrival Mode Ambulatory, Ambulatory, Ambulatory, Walker Walker Walker Transfer Assistance None Accompanied by Patient Identification Verified (Name & Yes Yes Yes ) Safety Precautions Finger Stick Blood Sugar(mg/dl) (if 164 indicated): Blood Sugar Stated by Patient Vital Signs Temperature (97.8 F-99.1 F) 96.0 F L 96.8 F L 96.9 F L Temperature Source Temporal Temporal Temporal Pulse Rate (60-100) 92 88 87 Pulse Location Monitor Monitor Monitor Respiratory Rate (12-18) 18 18 16 Respiratory rate source Observation Observation Observation Oxygen Delivery Method Room Air Room Air Room Air Blood Pressure (90/60-120/80) 154/95 H 150/82 H 134/72 H Blood Pressure Mean (mm Hg) 114 104 92 Source Monitor Monitor Monitor Position Semi-Fowlers Semi-Fowlers Sitting Blood Pressure Location Left Arm Right Arm Right Arm History Since Last Visit- (Skip if this is Patient's initial visit) Have you changed medications since your No No last visit? Any new allergies or adverse reactions No No Had a fall/change in ADL's that may No No increase risk of falls Signs or symptoms of abuse and/or No No neglect since last visit Have you been in the hospital since your No No last visit? Has dressing in place as prescribed Yes Yes Has compression in place as prescribed Yes Yes Has offloadiing in place as prescribed N/A N/A Experienced any changes in pain level or No No management Left Footwear Slipper Slipper No Footwear Right Footwear Slipper Slipper No Footwear Pain Scale: 0-10 Numeric Is Patient Pain Free? Yes Yes Yes Lower Extremity Assessment/ Foot Assessment/ Toe Nail Assessment Right -Posterior Tibial Palpable Yes -Dorsalis Pedis Palpable Yes -Dorsalis Pedis Doppler Monophasic -Hair Growth on Legs No -Hair Growth on Toes No -Temperature of Extremity Cool -Thick Yes -Discolored Yes -Deformed Yes -Improper Length & Hygeine Yes Left -Posterior Tibial Palpable Yes -Posterior Tibial Doppler Multiphasic -Dorsalis Pedis Palpable Yes -Extremity Color Red -Hair Growth on Legs No -Hair Growth on Toes No -Temperature of Extremity Cool -Capillary Refill Less than 3 Seconds -Thick Yes -Discolored Yes -Deformed Yes -Improper Length & Hygeine Yes Communication Assessment Preferred language Danish Able to Read Yes Able to Write Yes Communication Tools None Caregiver Communication Skills No Impairment Impairment Right Hearing Abillity Normal Left Hearing Abillity Normal Visual Assistive Devices Glasses Teaching Assessment Preferences Verbal,Written, Demonstration Barriers to Learning None Readiness To Learn Excellent Willingness to Engage in Self Management High Activies Readiness to Engage in Self Management High Activities Anxiety Level Calm Cooperation Cooperative Perception Coherent Interest in Health Problem Asks Questions Education Importance Acknowledges Need Does Patient Smoke tobacco or other Yes substances Is Patient Diabetic Yes Functional Assessment Recent Decline in Ability to Perform Ambulation, Bathing,Lower Body Dressing, Toileting, Transferring 09/25/23 10:45 WC - Today's Visit Information Type of service Follow-up Visit (Physician/HUMAN RESOURCES EXECUTIVE ASSISTANT ) Arrival Mode Ambulatory, Walker Transfer Assistance Accompanied by self Patient Identification Verified (Name & Yes ) Safety Precautions Fall Prevention Finger Stick Blood Sugar(mg/dl) (if 201 indicated): Blood Sugar Stated by Patient Vital Signs Temperature (97.8 F-99.1 F) 97.9 F Temperature Source Temporal Pulse Rate (60-100) 97 Pulse Location Monitor Respiratory Rate (12-18) 18 Respiratory rate source Observation Oxygen Delivery Method Room Air Blood Pressure (90/60-120/80) 149/72 H Blood Pressure Mean (mm Hg) 97 Source Monitor Position Sitting Blood Pressure Location Left Arm History Since Last Visit- (Skip if this is Patient's initial visit) Have you changed medications since your last visit? Any new allergies or adverse reactions Had a fall/change in ADL's that may increase risk of falls Signs or symptoms of abuse and/or neglect since last visit Have you been in the hospital since your last visit? Has dressing in place as prescribed Yes Has compression in place as prescribed Yes Has offloadiing in place as prescribed Yes Experienced any changes in pain level or Yes management Left Footwear Regular Shoe Right Footwear Regular Shoe Pain Scale: 0-10 Numeric Is Patient Pain Free? Yes Lower Extremity Assessment/ Foot Assessment/ Toe Nail Assessment Right -Posterior Tibial Palpable -Dorsalis Pedis Palpable -Dorsalis Pedis Doppler -Hair Growth on Legs -Hair Growth on Toes -Temperature of Extremity -Thick -Discolored -Deformed -Improper Length & Hygeine Left -Posterior Tibial Palpable -Posterior Tibial Doppler -Dorsalis Pedis Palpable -Extremity Color -Hair Growth on Legs -Hair Growth on Toes -Temperature of Extremity -Capillary Refill -Thick -Discolored -Deformed -Improper Length & Hygeine Communication Assessment Preferred language Able to Read Able to Write Communication Tools Caregiver Communication Skills Impairment Right Hearing Abillity Left Hearing Abillity Visual Assistive Devices Teaching Assessment Preferences Barriers to Learning Readiness To Learn Willingness to Engage in Self Management Activies Readiness to Engage in Self Management Activities Anxiety Level Cooperation Perception Interest in Health Problem Education Importance Does Patient Smoke tobacco or other substances Is Patient Diabetic Functional Assessment Recent Decline in Ability to Perform - Nurse 1 - General Ulcer Measurement Start: 09/04/23 10:06 Freq: Status: Active Protocol: Activity Type Activity Date Activity User E-sign Co-sign Detail Recorded Client Recorded Date Recorded By Document 09/04/23 10:09 Wound center 09/04/23 10:24 Document 09/18/23 10:42 [facility] 09/18/23 10:53 Document 09/25/23 10:52 [place] [id number] 09/25/23 10:53 [place] 09/04/23 09/18/23 09/25/23 10:09 10:42 10:52 Wound Center Nurse 1 #21 LT LAT LE cluster -Current Size (cm) - Length 1.2 0.1 -Current Size (cm) - Width 1 0.1 -Current Size (cm) - Depth 0.1 0.1 -Total Square Cm 1.2 0.01 -Date of Last Picture (Recall this 09/04/23 field) -Photo Taken No -Epithelialization Large 67-100% -Tunneling No -Undermining/Tunneling No -Circular Undermining No -Exudate Amt None Present -Slough/Fibrin No -Necrosis Amt None Present (0 %) -Texture (Bren-wound Skin Appearance) Assessed No Abnormality, Assessed -Moisture (Bren-wound Skin Appearance) Assessed Assessed,Dry/ Scaly -Color (Bren-wound Skin Appearance) Assessed Assessed -Temperature (Bren-wound Skin No Abnormality No Abnormality Appearance) (Pt Warm) (Pt Warm) -Tenderness on Palpation (Bren-wound No Skin Appearance) -Ulcer Cleansing Soap and Water Soap and Water -Foul Odor after Cleansing No No -Anesthetic Used 5% Lidocaine Gel -Wound Comment(s) SCABBED #20 POST LLE -Combined with (Name of Wound-Exactly 0.1 as it is documented) -Current Size (cm) - Length 4.8 0.1 -Current Size (cm) - Width 5.5 0.1 -Current Size (cm) - Depth 0.1 -Total Square Cm 26.40 0.01 -Date of Last Picture (Recall this 09/04/23 field) -Epithelialization Medium 34-66% -Exudate Amt None Present None Present -Wound Margin Distinct, Distinct, Outline Outline Attached Attached -Texture (Bren-wound Skin Appearance) Assessed No Abnormality, Assessed -Moisture (Bren-wound Skin Appearance) Assessed Dry/Scaly -Color (Bren-wound Skin Appearance) Assessed, Assessed Erythema -Temperature (Bren-wound Skin No Abnormality No Abnormality Appearance) (Pt Warm) (Pt Warm) -Tenderness on Palpation (Bren-wound No Skin Appearance) -Ulcer Cleansing Soap and Water Soap and Water -Foul Odor after Cleansing No -Anesthetic Used 5% Lidocaine 5% Lidocaine Gel Gel -Wound Comment(s) SCABBED 22-right posterior leg -Current Size (cm) - Length 0.5 -Current Size (cm) - Width 1.0 -Current Size (cm) - Depth 0.1 -Total Square Cm 0.50 -Exudate Amt Medium -Exudate Type Serosanguineous -Wound Margin Flat & Intact -Granulation Amt Large (67-100%) -Granulation Quality Pale,[place] -Slough/Fibrin No -Texture (Bren-wound Skin Appearance) Assessed -Moisture (Bren-wound Skin Appearance) Assessed -Color (Bren-wound Skin Appearance) Assessed -Temperature (Bren-wound Skin No Abnormality Appearance) (Pt Warm) -Tenderness on Palpation (Bren-wound No Skin Appearance) -Ulcer Cleansing Soap and Water -Anesthetic Used 5% Lidocaine Gel Right Calf (cm) 35.4 38 34 Right Ankle (cm) 24.3 26.5 26 Left Calf (cm) 37.5 36.5 36 Left Ankle (cm) 23.4 24 23 WC - Nurse 2 - General Ulcer CM Notes Start: 09/04/23 10:06 Freq: Status: Active Protocol: Activity Type Activity Date Activity User E-sign Co-sign Detail Recorded Client Recorded Date Recorded By Document 09/04/23 10:44 [id number] 09/04/23 10:52 Document 09/18/23 11:14 [id number] 09/18/23 11:17 Document 09/25/23 11:01 JF 000 09/25/23 11:02 JF 09/04/23 09/18/23 09/25/23 10:44 11:14 11:01 Wound Center Nurse 2 #21 [facility] cluster -Time 10:51 -Correct Patient Yes No -Correct Side, Site, Position Yes No -Correct Procedure Yes No -Procedure Performed Yes No -Type of Procedure Debridement -Clinical Debridement Subcutaneous -Tissue Removed Subcutaneous -Post Debridement (cm) - Length 2.0 0 -Post Debridement (cm) - Width 1.8 0 -Post Debridement (cm) - Depth 0.1 0 -Total Square (Post) (cm) 3.60 0 -Area of Debridement (cm) - Length 2.0 0 -Area of Debridement (cm) - Width 1.8 0 -Total Square (Area) (cm) 3.60 0 -Tunneling No -Undermining/Tunneling No -Circular Undermining No -Wound/Ulcer Outcome Not Healed Healed- Epithelialized -Ulcer Cleansing Rinsed/ Irrigated with Saline -Foul Odor after Cleansing No -Bioengineered Tissue No -Bleeding Controlled with Pressure -Treatment Response Procedure Tolerated Well -Offloading No -Debridement - Subq, 1st 20sq cm No #20 POST LLE -Time 10:51 -Correct Patient Yes No -Correct Side, Site, Position Yes No -Correct Procedure Yes No -Procedure Performed Yes No -Type of Procedure Debridement -Clinical Debridement Subcutaneous -Tissue Removed Subcutaneous -Post Debridement (cm) - Length 0.9 0 -Post Debridement (cm) - Width 0.4 0 -Post Debridement (cm) - Depth 0.1 0 -Total Square (Post) (cm) 0.36 0 -Area of Debridement (cm) - Length 0.9 0 -Area of Debridement (cm) - Width 0.4 0 -Total Square (Area) (cm) 0.36 0 -Tunneling No -Undermining/Tunneling No -Circular Undermining No -Wound/Ulcer Outcome Not Healed Healed- Epithelialized -Ulcer Cleansing Rinsed/ Irrigated with Saline -Foul Odor after Cleansing No -Bioengineered Tissue No -Bleeding Controlled with Pressure -Treatment Response Procedure Tolerated Well -Offloading No -Debridement - Subq, 1st 20sq cm Yes 22-right posterior leg -Time 11:16 11:01 -Correct Patient Yes Yes -Correct Side, Site, Position Yes Yes -Correct Procedure Yes Yes -Procedure Performed Yes Yes -Type of Procedure Debridement Debridement -Clinical Debridement Subcutaneous Subcutaneous -Tissue Removed Subcutaneous Subcutaneous -Post Debridement (cm) - Length 0.8 0.6 -Post Debridement (cm) - Width 1.0 0.7 -Post Debridement (cm) - Depth 0.1 0.1 -Total Square (Post) (cm) 0.80 0.42 -Area of Debridement (cm) - Length 0.8 0.6 -Area of Debridement (cm) - Width 1.0 0.7 -Total Square (Area) (cm) 0.80 0.42 -Tunneling No No -Undermining/Tunneling No No -Circular Undermining No No -Wound/Ulcer Outcome Not Healed Not Healed -Ulcer Cleansing Rinsed/ Rinsed/ Irrigated with Irrigated with Saline Saline -Foul Odor after Cleansing No No -Bioengineered Tissue No No -Bleeding Controlled with Pressure Pressure -Treatment Response Procedure Procedure Tolerated Well Tolerated Well -Offloading No No -Debridement - Subq, 1st 20sq cm Yes Yes Pain Scale: 0-10 Numeric Is Patient Pain Free? Yes Yes Yes - Nurse 3 - General Ulcer D/C NN Start: 09/04/23 10:06 Freq: Status: Active Protocol: Activity Type Activity Date Activity User E-sign Co-sign Detail Recorded Client Recorded Date Recorded By Document 09/04/23 11:09 [facility] 09/04/23 11:10 Document 09/11/23 11:07 KW wound center 09/11/23 11:19 Document 09/18/23 11:23 [facility] 09/18/23 11:24 Document 09/25/23 11:14 KW ; 09/25/23 11:15 KW [id number] 09/18/23 11:09 11:07 11:23 Wound Care Center Nurse 3 #21 LT LAT LE cluster -Ulcer Cleansing Not Cleansed Soap and Water -Foul Odor after Cleansing No -Primary Dressing Applied Promogran Promogran Samantha Matter Samantha Matter -Primary Dressing Covered/Secured with Dry Gauze & Dry Gauze & Roll Gauze, Roll Gauze, Secured with Secured with Tape Tape -Promogran Samantha Matter 1 1 #20 POST LLE -Primary Dressing Covered/Secured with Dry Gauze, Dry Gauze Secured with Tape 22-right posterior leg -Primary Dressing Applied NonAdherent Contact Layer -Other Dressing c. hydrogel -Primary Dressing Covered/Secured with Dry Gauze & Roll Gauze, Secured with Tape BLE -Multi-Layered Wrap Application Multi-Layer Comp - Bilat ($ ) Right -Lotion applied to leg before No compression wrap -Tubular Bandage Single Layer Single Layer -Size of Tubigrip Used Size E Size E -Size E ($) 1 1 Left -Tubular Bandage Single Layer Single Layer -Size of Tubigrip Used Size E Size E -Size E ($) 1 1 Vital Signs Temperature (97.8 F-99.1 F) 96.8 F L Temperature Source Temporal Pulse Rate (60-100) 88 Pulse Location Monitor Respiratory Rate (12-18) 18 Respiratory rate source Observation Oxygen Delivery Method Room Air Blood Pressure (90/60-120/80) 150/82 H Blood Pressure Mean (mm Hg) 104 Source Monitor Position Semi-Fowlers Blood Pressure Location Right Arm Pain Scale: 0-10 Numeric Is Patient Pain Free? Yes Yes Yes WC - Visit Discharge Discharge Condition Stable Stable Stable Ambulatory Status Ambulatory, Ambulatory, Ambulatory, Walker Walker Walker Transportation Private Auto Private Auto Medication Reconcilliation completed & No No provided to patient/care provider Clinical Summary of Care Provided Yes Yes Yes 09/25/23 11:14 Wound Care Center Nurse 3 #21 LT LAT LE cluster -Ulcer Cleansing -Foul Odor after Cleansing -Primary Dressing Applied -Primary Dressing Covered/Secured with -Promogran Samantha Matter #20 POST LLE -Primary Dressing Covered/Secured with 22-right posterior leg -Primary Dressing Applied NonAdherent Contact Layer -Other Dressing HYDROGEL -Primary Dressing Covered/Secured with Dry Gauze & Roll Gauze, Secured with Tape BLE -Multi-Layered Wrap Application Multi-Layer Comp - Bilat ($ ) Right -Lotion applied to leg before compression wrap -Tubular Bandage -Size of Tubigrip Used -Size E ($) Left -Tubular Bandage -Size of Tubigrip Used -Size E ($) Vital Signs Temperature (97.8 F-99.1 F) Temperature Source Pulse Rate (60-100) Pulse Location Respiratory Rate (12-18) Respiratory rate source Oxygen Delivery Method Blood Pressure (90/60-120/80) Blood Pressure Mean (mm Hg) Source Position Blood Pressure Location Pain Scale: 0-10 Numeric Is Patient Pain Free? Yes WC - Visit Discharge Discharge Condition Stable Ambulatory Status Walker Transportation Medication Reconcilliation completed & No provided to patient/care provider Clinical Summary of Care Provided Yes Assessment/Plan Assessment/Plan (1) Non-pressure chronic ulcer of other part of right lower leg with fat layer exposed: CODE(S): L97.812 - Non-pressure chronic ulcer of other part of right lower leg with fat layer exposed PLAN: Patient was examined and evaluated. All findings were discussed with the patient. All questions were answered to the patient's satisfaction. Excisional debridement down to and including subcutaneous tissue with a number 5 mm dermal curette to the right lateral ulceration. Predebridement measurement is 0.5 x 0.6 x 0.1 cm. Postdebridement measurement is 0.6 x 0.7 x 0.1 cm. Right lower extremities are clean and patted dry. Collagen hydrogel was applied followed by dry sterile dressing and bilateral 3M wraps. Patient will follow-up with nursing visit on Saturday or Saturday. Patient's toenails were debrided as a courtesy bilateral. Follow-up at the wound care center with Dr. Solano in 1 week. (2) Peripheral vascular disease: CODE(S): I73.9 - Peripheral vascular disease, unspecified (3) Acute painful diabetic polyneuropathy: CODE(S): E11.42 - Type 2 diabetes mellitus with diabetic polyneuropathy
== END 2023-09-29 23:59 | disposition home or self-care (01) ==
LOC: WC 10:30
PROVIDERS: PCP Family Medicine; Referring Provider Podiatrist Foot & Ankle Surgery; Visit Provider Podiatrist Foot & Ankle Surgery
DX: L97.812 Non-pressure chronic ulcer of other part of right lower leg with fat layer exposed (principal); E11.42 Type 2 diabetes mellitus with diabetic polyneuropathy; E11.65 Type 2 diabetes mellitus with hyperglycemia; Z96.649 Presence of unspecified artificial hip joint; I73.9 Peripheral vascular disease, unspecified
CPT/HCPCS: 11042; 29581; 99211; 99212; 99214; G0463

== ENCOUNTER 2023-10-01 07:48 | Emergency (ER) | payer MEDICARE, MEDICAID, SELFPAY ==
[2023-10-01 07:49] VITALS: BP 187/92; PULSE 98; RESP 16; TEMP 35.6; O2SAT 97; BMI 25.7
--- NOTE | 2023-10-01 08:30 | EKG12_ITS ---
Test Reason : N/V Blood Pressure : / mmHG Vent. Rate : 094 BPM Atrial Rate : 094 BPM P-R Int : 184 ms QRS Dur : 080 ms QT Int : 350 ms P-R-T Axes : 069 052 063 degrees QTc Int : 437 ms Normal sinus rhythm Normal ECG Confirmed by Se Hinds ([id number]), image editor RAFI DOMINGO ([id number]) on 10/04/2023 9:15:27 AM Referred By: Confirmed By:Se Hinds
--- NOTE | 2023-10-01 08:58 | EX.ED.DYSGE1 ---
HPI History of Present Illness Chief Complaint: Nausea/Vomiting Informant: patient Narrative Narrative: Patient is a 63-year-old female with history of end-stage renal disease on hemodialysis (Saturday), diabetes mellitus, chronic pain, neuropathy, hypertension, vertigo, hyperlipidemia and generalized debility presenting for multiple complaints. First patient states has been having worsening nausea and dry heaves over the past 2 to 3 weeks. She attributes this to her chronic vertigo. She takes Zofran which sometimes helps. She follows with her PCP, Dr. Serrano. She states his vertigo is been going on for years and sometimes is worse than other times. Denies any associate abdominal pain or actual vomiting. Denies any change in bowel movements. Denies any black or blood in her stools. Because of her symptoms today patient missed her hemodialysis. She last had dialysis on Saturday and had a full session. She states that the [facility] is aware that she has been seen today. She states her county health officer is Dr. Terry. Patient is also complaining of her worsening leg pain which she attributes to her neuropathy. She denies any trauma to her legs. She states her symptoms so bad that she cannot sleep. She is wondering if there is any testing that can be done to see if her neuropathy is getting worse. Finally patient states has been having dysuria for the past 3 days. Denies any fever or chills. Does have a history of urinary tract infections. States she does not regularly make urine. Patient denies any chest pain, shortness of breath difficulty breathing. Patient does state that she has new landlord and the AC is been out of her house. She states she is just down to 2 blocks fans. [facility] Medical History Hypoglycemia due to insulin Stage 5 chronic kidney disease due to type 2 diabetes mellitus Long-term insulin use Walker as ambulation aid History of renal disease Difficulty chewing History of renal dialysis Accidental fall Depression Uses wheelchair Arthritis Bilateral pleural effusion CKD (chronic kidney disease) stage 4, GFR 15-29 ml/min Anemia Diabetes mellitus with hyperglycemia Transfusion of blood during current hospitalisation Symptomatic anemia Diabetes HTN (hypertension) Closed intertrochanteric fracture of left hip Wears glasses Insulin dependent diabetes mellitus Low iron Excessive bleeding High cholesterol Migraine headache Injury of head and neck Syncope Vomiting Dietary restriction Gastric reflux Non-smoker History of edema History of echocardiogram History of stress test Cardiology follow-up encounter Hx of orthostatic hypotension Chronic pain syndrome Malnutrition Essential hypertension Vertigo Migraine without aura HLD (hyperlipidemia) Post-concussion syndrome History of orthostatic hypotension Home Medications ?Medication ?Instructions ?Recorded ?Last Taken ?Type aspirin 81 mg chewable tablet 81 mg PO QHS HEART HEALTH 12/15/19 11/20/22 History atorvastatin 40 mg tablet 40 mg PO QHS CHOLESTEROL 12/15/19 11/19/22 History insulin lispro 100 unit/mL 8 unit subcut TIDCM diabetes 01/06/22 03/13/23 History subcutaneous pen (Humalog KwikPen (U-100) Insulin) sertraline 50 mg tablet 50 mg PO QHS DEPRESSION 01/06/22 11/20/22 History polyethylene glycol 3350 17 gram 17 g PO DAILY PRN Constipation 02/13/22 03/13/22 History oral powder packet omeprazole 20 mg capsule,delayed 20 mg PO DAILY gerd 04/30/22 11/20/22 History release pregabalin 75 mg capsule 75 mg PO BID #10 caps 05/04/22 11/20/22 Rx calcium acetate(phosphat bind) 667 667 mg PO TID 05/25/22 11/19/22 History mg capsule tramadol 50 mg tablet 50 mg PO Q6H PRN pain 3 days #5 05/30/22 06/03/23 Rx tabs insulin glargine 100 unit/mL (3 10 unit subcut QPM 06/14/22 11/19/22 History mL) subcutaneous pen (Lantus Solostar U-100 Insulin) hydrocodone-acetaminophen 5-325mg 1 tab PO Q8H PRN pain 2 days #5 11/21/22 Unknown Rx 5mg-325mg tabs diltiazem HCl 180 mg 240 mg PO DAILY 11/28/22 Unknown History capsule,extended release 24 hr hydralazine 50 mg tablet 25 mg PO TID 11/28/22 Unknown History flash glucose scanning reader #1 ea 12/07/22 Unknown Rx (FreeStyle Yane 2 Dille) flash glucose sensor (FreeStyle #2 ea 12/07/22 Unknown Rx Yane 2 Sensor kit) pantoprazole 40 mg tablet,delayed 40 mg PO Q12H 12/10/22 Unknown History release ondansetron 4 mg disintegrating 4 mg PO Q8H PRN PRN Nausea #10 tabs 03/17/23 Unknown Rx tablet clonidine HCl 0.3 mg tablet 0.3 mg PO 04/17/23 Unknown History midodrine 5 mg tablet 5 mg PO 04/17/23 Unknown History meclizine 25 mg tablet 12.5 mg (1/2 x 25 mg) PO BID PRN 10/01/23 Unknown Rx dizziness #10 tabs sulfamethoxazole 800 1 tab PO DAILY #5 tabs 10/01/23 Unknown Rx mg-trimethoprim 160 mg tablet (Bactrim DS) Allergy/AdvReac Type Severity Reaction Status Date / Time metformin AdvReac Diarrhea Verified 09/04/23 10:28 Family History Mother Hypertension Father Cancer lymphoma, leukemia Emphysema of lung Hypertension Grandmother Diabetes CVA (cerebral vascular accident) Surgical History S/P arteriovenous (AV) graft repair S/P arteriovenous (AV) fistula repair S/P arteriovenous (AV) fistula creation S/P dialysis catheter insertion History of esophagogastroduodenoscopy (EGD) Hx of colonoscopy History of mandibular surgery History of cholecystectomy Social History household members: significant other housing: penitentiary Smoking Status: Never smoker alcohol intake: never substance use type: does not use ROS ROS ED Constitutional Constitutional ED: Denies chills or fever(s) Eyes Eyes: Denies change in vision Cardiovascular Cardiovascular: Denies chest pain or palpitations Respiratory/Chest Respiratory/Chest: Denies cough or dyspnea Gastrointestinal Gastrointestinal: Reports nausea; Denies abdominal pain, diarrhea, melena or vomiting Genitourinary Genitourinary ED: Reports dysuria; Denies hematuria or urinary frequency Musculoskeletal Musculoskeletal: Reports myalgias Integumentary Denies rash Neurologic Neurologic: Reports other Details: Vertigo ; Denies paresthesias or weakness Hematologic/Lymphatic Hematologic/Lymphatic: Denies easy bleeding or easy bruising EXAM Physical Exam Const Vital Signs: 10/01/23 07:49 10/01/23 09:38 10/01/23 10:38 Temperature 96.1 F L 97.8 F Temperature Source Temporal Pulse Rate 98 81 83 Respiratory Rate 16 18 18 Blood Pressure 187/92 H 176/82 H 178/83 H Blood Pressure Mean 123 113 114 Pulse Ox 97 98 98 Oxygen Delivery Method Room Air Room Air Positive well nourished and well developed General Appearance ED: well developed and NAD HEENT Reports moist mucous membranes Eyes PERRL and EOMs intact bilaterally Eyes Narrative: No nystagmus on exam Neck supple and no JVD Chest Wall inspection of chest normal and palpation of chest normal Resp normal respiratory effort and clear to auscultation bilaterally Cardio regular rate and regular rhythm GI normal to inspection, nondistended, normoactive bowel sounds and non-tender Palpation: Negative for guarding Extremity Extremity Narrative: Chronic appearing edema in the lower extremities bilaterally, patient has compression wraps in place. Complains of diffuse pain of her lower legs. General Extremety ED: Yes edema and tenderness General Extremity: edema Neuro oriented x3, CN's II-XII intact bilaterally and no sensory deficits noted Neuro Narrative: Normal [id number] bilaterally. Sensorium / Orientation: alert Motor Exam: general weakness Psych mental status grossly normal Mood & Affect: anxious Skin no rashes or lesions noted and no wounds MDM MDM MDM Narrative Medical decision making narrative: Patient is evaluated for like multiple chronic complaints including worsening of her chronic pain to her legs, worsening of her chronic dizziness/vertigo (states has been going on for years and she follows with her PCP for) as well as 3 days of dysuria. Patient did miss dialysis today so workup to make sure she does not need emergent dialysis performed. This is normal with no hyperkalemia, hemodynamic instability, signs of fluid overload. She is not any focal neurologic deficits I do not think she requires neuroimaging at this time. She has normal [id number] I do not appreciate any dysmetria. No significant electrolyte abnormalities . Other than what would be expected with end-stage renal disease she does not have a leukocytosis. Urinalysis does show findings since with urinary tract infection on straight cath with 4+ bacteria and 10-25 white blood cells. Chart view shows that she intermittently is culture positive for Enterobacter cloaca complex. It is sensitive to Bactrim. Patient started on renally dosed Bactrim and given 1 dose in the emergency room. She is given dose of meclizine as well as IV Reglan and has improvement of her symptoms. Given that she is not actually vomiting and the nausea/dry heaves seems more related to dizziness I do not think she requires abdominal imaging at this time. Abdomen is soft and nontender. Patient be discharged home with a prescription for meclizine. Is given referral for ENT for her dizziness as she may be would benefit from vestibular therapy. Given that this dizziness been going on for years and she had a CT of her brain that did not show any acute process last year I do not think repeat neuroimaging is indicated at this time. Patient agreeable plan of care. Is given a dose of her home tramadol. She states she does not take it as much as it is prescribed and counseled that she should take it as needed for her pain control. Lab Data Attestation: I reviewed the patient's lab results. Labs: Laboratory Results - last 24 hr 10/01/23 10/01/23 10/01/23 09:05 09:05 09:23 WBC Cancelled Corrected WBC Cancelled RBC Cancelled Hgb Cancelled Hct Cancelled MCV Cancelled MCH Cancelled MCHC Cancelled RDW Std Deviation Cancelled RDW Coeff of Chris Cancelled Plt Count Cancelled MPV Cancelled Immature Gran % (Auto) Cancelled Neut % (Auto) Cancelled Lymph % (Auto) Cancelled Brantley % (Auto) Cancelled Eos % (Auto) Cancelled Baso % (Auto) Cancelled Absolute Neuts (auto) Cancelled Absolute Lymphs (auto) Cancelled Total Counted Cancelled Neutrophils % (Manual) Cancelled Band Neutrophils % Cancelled Lymphocytes % (Manual) Cancelled Monocytes % (Manual) Cancelled Eosinophils % (Manual) Cancelled Basophils % (Manual) Cancelled Metamyelocytes % Cancelled Myelocytes % Cancelled Promyelocytes % Cancelled Blast Cells % Cancelled Plasma Cell % (Manual) Cancelled Other Cells % Cancelled Nucleated RBC % Cancelled Nucleated RBCs/100 WBC Cancelled Differential Comment Cancelled Diff Path Review Cancelled Hypersegmented Neuts Cancelled Atypical Lymphocytes Cancelled Reactive Lymphocytes Cancelled Smudge Cells Cancelled Toxic Granulation Cancelled Toxic Vacuolation Cancelled Dohle Bodies Cancelled Bryan Rods Cancelled Platelet Estimate Cancelled Plt Morphology Comment Cancelled RBC Morphology Cancelled Cancelled Polychromasia Cancelled Hypochromasia Cancelled Basophilic Stippling Cancelled Anisocytosis Cancelled Microcytosis Cancelled Macrocytosis Cancelled Spherocytes Cancelled Sickle Cells Cancelled Target Cells Cancelled Tear Drop Cells Cancelled Ovalocytes Cancelled Stomatocytes Cancelled Spicer-Larchmont Bodies Cancelled [place] Cells Cancelled Bite Cells Cancelled Crenated Cell Cancelled Acanthocytes (Spur) Cancelled Rouleaux Cancelled Schistocytes Cancelled Sodium 134 L Potassium 4.8 Chloride 97 L Carbon Dioxide 29.0 Anion Gap 8 BUN 49 H Creatinine 6.63 H Estim Creat Clear Calc 8.76 Est GFR (MDRD) Af Amer 8 L Est GFR (MDRD) Non-Af 7 L BUN/Creatinine Ratio 7.4 L Glucose 264 H Calcium 9.4 Total Bilirubin 0.40 AST 12 L ALT 16 Alkaline Phosphatase 170 H Total Protein 6.8 Albumin 3.3 Globulin 3.5 Albumin/Globulin Ratio 0.9 Lipase 41 Urine Color Yellow Urine Clarity Cloudy Urine pH 7.0 Ur Specific [place] 1.010 Urine Protein 100 H Urine Glucose (UA) 50 H Urine Ketones Negative Urine Occult Blood 50 H Urine Nitrite Negative Urine Bilirubin Negative Urine Urobilinogen Normal Ur Leukocyte Esterase 500 H Urine RBC 0-5 SEEN Urine WBC 10-25 SEEN Ur Squamous Epith Cells 0-5 SEEN Urine Bacteria 4+ Urine Mucus 0 SEEN 10/01/23 09:25 WBC 4.6 Corrected WBC RBC 3.64 L Hgb 10.6 L Hct 34.0 L MCV 93.4 MCH 29.1 MCHC 31.2 L RDW Std Deviation 47.7 H RDW Coeff of Chris 14.1 Plt Count 156 MPV 10.1 Immature Gran % (Auto) 0.200 Neut % (Auto) 64.3 Lymph % (Auto) 23.5 Brantley % (Auto) 7.8 Eos % (Auto) 3.5 Baso % (Auto) 0.7 Absolute Neuts (auto) 3.0 Absolute Lymphs (auto) 1.08 Total Counted Neutrophils % (Manual) Band Neutrophils % Lymphocytes % (Manual) Monocytes % (Manual) Eosinophils % (Manual) Basophils % (Manual) Metamyelocytes % Myelocytes % Promyelocytes % Blast Cells % Plasma Cell % (Manual) Other Cells % Nucleated RBC % 0 Nucleated RBCs/100 WBC Differential Comment Diff Path Review Hypersegmented Neuts Atypical Lymphocytes Reactive Lymphocytes Smudge Cells Toxic Granulation Toxic Vacuolation Dohle Bodies Bryan Rods Platelet Estimate Plt Morphology Comment RBC Morphology Polychromasia Hypochromasia Basophilic Stippling Anisocytosis Microcytosis Macrocytosis Spherocytes Sickle Cells Target Cells Tear Drop Cells Ovalocytes Stomatocytes Spicer-Larchmont Bodies [place] Cells Bite Cells Crenated Cell Acanthocytes (Spur) Rouleaux Schistocytes Sodium Potassium Chloride Carbon Dioxide Anion Gap BUN Creatinine Estim Creat Clear Calc Est GFR (MDRD) Af Amer Est GFR (MDRD) Non-Af BUN/Creatinine Ratio Glucose Calcium Total Bilirubin AST ALT Alkaline Phosphatase Total Protein Albumin Globulin Albumin/Globulin Ratio Lipase Urine Color Urine Clarity Urine pH Ur Specific [place] Urine Protein Urine Glucose (UA) Urine Ketones Urine Occult Blood Urine Nitrite Urine Bilirubin Urine Urobilinogen Ur Leukocyte Esterase Urine RBC Urine WBC Ur Squamous Epith Cells Urine Bacteria Urine Mucus Rhythm Strip Rhythm Strip: Sinus Rhythm Rate: 94 Ectopy: None EKG Initial EKG: Attestation: I personally reviewed and interpreted this EKG as follows: Interpretation: Sinus Rhythm Comments: Normal sinus rhythm rate of 94 bpm Normal axis Normal intervals Normal ST segments Compared to prior EKG on 03/21/2023, no acute change Discharge Plan Triage Chief Complaint: Nausea/Vomiting ED Provider: Kaitlin Lira Dx/Rx/DC Orders Clinical Impression: UTI (urinary tract infection), Acute painful diabetic polyneuropathy, Dizziness, Nausea Instructions: ED Dizziness, Uncertain Cause, ED Neuropathy, Peripheral, ED Cystitis Female Adult Prescriptions: New sulfamethoxazole-trimethoprim [Bactrim DS] 800-160 mg tablet 1 tab PO DAILY Qty: 5 0RF meclizine 25 mg tablet 12.5 mg PO BID PRN (Reason: dizziness) Qty: 10 0RF No Action (DME) FreeStyle Yane 2 Dille Misc See Rx Instructions .Route Qty: 1 0RF Rx Instructions: As directed (DME) FreeStyle Yane 2 Sensor Kit See Rx Instructions .Route Qty: 2 6RF Rx Instructions: As directed hydralazine 50 mg tablet 25 mg PO TID diltiazem HCl 180 mg capsule,extended release 24hr 240 mg PO DAILY pantoprazole 40 mg tablet,delayed release (DR/EC) 40 mg PO Q12H midodrine 5 mg tablet 5 mg PO clonidine HCl 0.3 mg tablet 0.3 mg PO atorvastatin 40 MG tablet 40 mg PO QHS aspirin 81 MG tablet,chewable 81 mg PO QHS insulin lispro [Humalog KwikPen Insulin] 100 unit/mL insulin pen 8 unit subcut TIDCM Rx Instructions: with meals sertraline 50 mg tablet 50 mg PO QHS polyethylene glycol 3350 17 gram powder in packet 17 g PO DAILY PRN (Reason: Constipation) omeprazole 20 mg Capsule,Delayed Release(Dr/Ec) 20 mg PO DAILY pregabalin 75 mg Capsule 75 mg PO BID Qty: 10 0RF calcium acetate(phosphat bind) 667 mg Capsule 667 mg PO TID tramadol 50 mg tablet 50 mg PO Q6H PRN (Reason: pain) 3 Days Qty: 5 0RF insulin glargine [Lantus Solostar U-100 Insulin] 100 unit/mL (3 mL) Insulin Pen 10 unit SUBCUT QPM ondansetron 4 mg tablet,disintegrating 4 mg PO Q8H PRN PRN (Reason: Nausea) Qty: 10 0RF hydrocodone-acetaminophen 5-325 mg tablet 1 tab PO Q8H PRN (Reason: pain) 2 Days Qty: 5 0RF Primary Care Provider: Dennys Serrano Referrals: Dennys Serrano MD [Primary Care Provider] - Activity Restrictions/Additional Instructions: Please follow-up with Dr. Serrano as scheduled. You been given referral for an ear nose and throat doctor which can help with dizziness/vertigo. Return to the ER if you have a progression worsening your symptoms. Take your tramadol as prescribed at home. Print Language: Turkish Disposition Disposition: Home, Self Care Discharge Date/Time: 10/01/23 11:34
[2023-10-01] MEDS: Metoclopramide 10 MG/2 ML Vial 5 MG IV (09:12)
[2023-10-01] MEDS: Meclizine HCl 25 MG Tablet PO (09:12)
[2023-10-01 09:27] LABS: Mucous, Urine 0 SEEN /hpf (<or=2+)
[2023-10-01 09:31] LABS: Absolute Lymphocyte Count 1.08 X10^3/uL (0.83-4.51); Basophil# 0.03 X10^3/uL; Basophil% 0.7 % (0-1); Eosinophil# 0.16 X10^3/uL; Eosinophils% 3.5 % (0-5); Hemoglobin 10.6 g/dL (12.0-15.0); Lymphocyte # 1.08 X10^3/ul (0.83-4.51); Lymphocyte % 23.5 % (19-41); Mean Corp Hgb Conc 31.2 g/dL (32-36); Mean Corpuscular Hgb 29.1 pg (27.0-32.0); Mean Corpuscular Volume 93.4 fL (81-99); Mean Platelet Vol. 10.1 fl (6.2-12.0); Monocyte# 0.36 X10^3/uL; Monocyte% 7.8 % (0-10); NRBC Flagged by Analyzer 0 % (0-5); Neutrophil # 2.96 X10^3/uL (2.7-7.7); Neutrophil % 64.3 % (47-70); Platelet Count 156 K/mm3 (150-450); RBC Distribution Width CV 14.1 % (11.6-14.6); RBC Distribution Width SD 47.7 fl (35.1-43.9); Red Blood Count 3.64 M/mm3 (4.2-5.4); White Blood Count 4.6 K/mm3 (4.4-11.0)
[2023-10-01 09:35] LABS: Color, Urine Yellow (Yellow); Glucose, Dipstick 50 mg/dl (Normal); Ketone-Dipstick Negative (Negative); Leukocyte Esterase-Dipstick 500 /ul (Negative); Nitrite-Dipstick Negative (Negative); Occult Blood-Urine 50 /ul (Negative); Protein-Dipstick 100 mg/dl (Negative); Urine Bilirubin Dipstick Negative (Negative); Urine Clarity Cloudy (Clear); Urine Urobilinogen Normal (Normal)
[2023-10-01 09:36] LABS: ALB/GLOB Ratio 0.9 RATIO (0.9-2.4); AST(SGOT) 12 U/L (15-37); Alanine Aminotransfer ALT/SGPT 16 U/L (13-56); Albumin, Serum 3.3 g/dL (3.2-5.0); Alkaline Phosphatase 170 U/L (45-117); Anion Gap 8 (5-15); BUN 49 mg/dL (7-18); BUN/Creat Ratio 7.4 RATIO (10-20); Calcium,Total 9.4 mg/dL (8.5-10.1); Chloride 97 mmol/L (98-107); Creatinine, Serum 6.63 mg/dL (0.55-1.02); EST Glomerular Filtration Rate 7 mL/min (>60); Est Glom Filt Rate - Afr Amer 8 mL/min (>60); Estimated Creatinine Clearance 8.76 ml/min; Globulin 3.5 g/dL (2.2-4.2); Glucose 264 mg/dL (74-106); Lipase 41 U/L (13-75); Potassium 4.8 mmol/L (3.5-5.1); Protein, Total 6.8 g/dL (6.4-8.2); Sodium Level 134 mmol/L (136-145)
[2023-10-01 09:38] VITALS: BP 176/82; PULSE 81; RESP 18; O2SAT 98
[2023-10-01 09:43] LABS: Bacteria 4+ /hpf (None Seen); Red Blood Cells-Urine 0-5 SEEN /hpf (0-5); Squamous Epithelial Cells - UA 0-5 SEEN /hpf (5-10); White Blood Cells 10-25 SEEN /hpf (0-5)
[2023-10-01] MEDS: Smz/Tmp Ds Tablet 1 TABLET PO (10:36)
[2023-10-01] MEDS: traMADol 50 MG Tablet PO (10:37)
[2023-10-01 10:38] VITALS: BP 178/83; PULSE 83; RESP 18; TEMP 36.6; O2SAT 98
== END 2023-10-01 11:34 | disposition home or self-care (01) ==
PROVIDERS: Emergency Provider Emergency Medicine; PCP Family Medicine; Visit Provider Emergency Medicine
DX: N39.0 Urinary tract infection, site not specified (principal); I12.0 Hypertensive chronic kidney disease with stage 5 chronic kidney disease or end stage renal disease; N18.6 End stage renal disease; Z79.4 Long term (current) use of insulin; E11.42 Type 2 diabetes mellitus with diabetic polyneuropathy; E11.22 Type 2 diabetes mellitus with diabetic chronic kidney disease; G89.29 Other chronic pain; B96.89 Other specified bacterial agents as the cause of diseases classified elsewhere; M79.605 Pain in left leg; M79.604 Pain in right leg; R42 Dizziness and giddiness; R11.2 Nausea with vomiting, unspecified; E78.5 Hyperlipidemia, unspecified; Z99.2 Dependence on renal dialysis
CPT/HCPCS: 80053; 81001; 83690; 85025; 87077; 87086; 87088; 87186; 93005; 96374; 99283; P9612; A4216

== ENCOUNTER 2023-10-23 10:30 | Outpatient (RCR) | payer MEDICARE, MEDICAID, SELFPAY ==
[2023-09-30 00:07] VITALS: BP 149/72; PULSE 97; RESP 18; TEMP 36.6
[2023-10-02 10:26] VITALS: BP 164/80; PULSE 93; RESP 18; TEMP 36.2
--- NOTE | 2023-10-02 10:48 | PCM.WC.PN ---
History of Present Illness Date of Service: 10/02/23 Chief Complaint: left heel ulcer left ankle ulcer- healed History of Wound: A 62-year-old female who presents to the wound care center today for left heel ulceration and bilateral lower extremity edema with multiple leg wounds secondary to previous blisters. In October 2019, patient had rubbing in shoes while shopping which led to a blister that developed into an ulceration. Patient was then seen by Dewey Amezquita.P.M. for wound care. Patient then became infected and was admitted to the hospital. Patient was noted to have OM on MRI. Patient wanted to avoid surgery so a chcf course of appropriate IV antibiotics was the treatment chosen. Patient was also noted to have hyperglycemia and has worked with hospitalist and PCP to try to get better control. Blood sugar levels remain elevated. Patient also had LEAS obtained in the hospital which suggested patient had the proper blood flow to allow healing. Patient has since finished intermodal dispatcher course of antibiotics. Patient has since been seen on a weekly basis in office with progression and regression of wound noted over the weeks. Patient has tried various dressing options including wet to dry and santyl. The most progress was noted with Santyl but patient ran out and was unable to refill due to insurance issues. During which time the wound regressed. She also has an offloading surgical shoe and offloading boot to relieve pressure. Patient care is henceforth being carried out at the wound care center. Patient not currently on any antibiotics. Patient has since began skin graft aplications significant improvement is been noted to her foot overall. Patient has finished epifix graft applications with some very small remaining wound noted to left heel. Patient has new wounds noted to bilateral third digits. The right 3rd digit wound has healed. Her left ankle ulcer remains healed Patient relates that ambulation is getting easier and she is rebuilding her strength slowly. She has not had any worsening of minor remaining heel wound since beginning ambulation again. 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 Her has been helping her change the dressings daily to the left heel. She had been following in the wound care center in 2021 for left heel ulceration but was subsequently lost to follow-up. She cites transportation issues. She presents to the wound care center today for continued care of her left heel ulceration and bilateral lower extremity wounds secondary to edema. Subjective Subjective Mrs. Sprague is a 62-year-old diabetic female presenting to the wound care center today for follow-up evaluation of full-thickness wounds to left leg. She has kept her bilateral compression dressing clean dry and intact. She denies any strikethrough. She denies trauma. Denies constitutional symptoms. No other complaints at this time. Objective Data Objective Data Vital Signs: Vital Signs Temp Pulse Resp BP O2 Del Method 97.1 F L 93 18 164/80 H Room Air 10/02/23 10:26 10/02/23 10:10/02/23 10:10/02/23 10:10/02/23 10:26 Oxygen Delivery Method Room Air Physical Exam Narrative Vascular: DP and PT pulses are faintly palpable secondary to edema. Nonpitting edema appreciated bilateral extremity. Evidence of hemosiderin deposits bilaterally. Skin temperature is warm to warm from proximal ankle to distal digits with no focal increase appreciated. Neurological: Light touch intact. Protective sensation is diminished. Dermatological: 2 full-thickness ulcerations appreciated to the left lower extremity on the lateral and posterior aspects, healed. Full-thickness ulceration appreciated to the right leg, healed. No sign of infection. Musculoskeletal: Muscle strength deferred. Mild pain to palpation of full-thickness ulceration to right leg. No pain with calf pressure. Debridement Note Debridement Note Post-Debridement Measurements and Additional Note: Post-Debridement Measurements/Treatment - Nurse 1 - General Ulcer Assessment Start: 10/02/23 10:26 Freq: Status: Active Protocol: [email or web address] Activity Type Activity Date Activity User E-sign Co-sign Detail Recorded Client Recorded Date Recorded By Document 10/02/23 10:26 KW ; 10/02/23 10:33 KW 10/02/23 10:26 - Today's Visit Information Type of service Follow-up Visit (Physician/[employer] ) Arrival Mode Ambulatory, Walker Patient Identification Verified (Name & Yes ) Vital Signs Temperature (97.8 F-99.1 F) 97.1 F L Temperature Source Temporal Pulse Rate (60-100) 93 Pulse Location Monitor Respiratory Rate (12-18) 18 Respiratory rate source Observation Oxygen Delivery Method Room Air Blood Pressure (90/60-120/80) 164/80 H Blood Pressure Mean (mm Hg) 108 Source Monitor Position Semi-Fowlers Blood Pressure Location Left Arm History Since Last Visit- (Skip if this is Patient's initial visit) Have you changed medications since your No last visit? Any new allergies or adverse reactions No Had a fall/change in ADL's that may No increase risk of falls Signs or symptoms of abuse and/or No neglect since last visit Have you been in the hospital since your Yes last visit? Has dressing in place as prescribed Yes Has compression in place as prescribed Yes Has offloadiing in place as prescribed N/A Experienced any changes in pain level or No management Left Footwear Slipper Right Footwear Slipper Pain Scale: 0-10 Numeric Is Patient Pain Free? No ble -Description Sharp -Intensity 6 -Pain Behavior Restlessness -Alleviating Factors/Interventions Medication, Medicate when due,Turning/ Repositioning WC - Nurse 1 - General Ulcer Measurement Start: 10/02/23 10:26 Freq: Status: Active Protocol: Activity Type Activity Date Activity User E-sign Co-sign Detail Recorded Client Recorded Date Recorded By Document 10/02/23 10:26 KW ; 10/02/23 10:33 KW 10/02/23 10:26 Wound Center Nurse 1 22-right posterior leg -Current Size (cm) - Length 0.1 -Current Size (cm) - Width 0.1 -Current Size (cm) - Depth 0.1 -Total Square Cm 0.01 -Date of Last Picture (Recall this 10/02/23 field) -Epithelialization Large 67-100% -Temperature (Bren-wound Skin No Abnormality Appearance) (Pt Warm) -Tenderness on Palpation (Bren-wound No Skin Appearance) -Ulcer Cleansing Soap and Water Right Calf (cm) 34 Right Ankle (cm) 24 Left Calf (cm) 33.7 Left Ankle (cm) 22.5 Assessment/Plan Assessment/Plan (1) Non-pressure chronic ulcer of other part of right lower leg with fat layer exposed: CODE(S): L97.812 - Non-pressure chronic ulcer of other part of right lower leg with fat layer exposed PLAN: Patient was examined and evaluated. All findings were discussed with the patient. All questions were answered to the patient's satisfaction. Patient's right lower extremity wound is now healed. Patient will be placed in 3M compression wraps bilaterally and follow-up with nursing visits for exchange. She will follow-up with Dr. Solano in 2 weeks. Educated the patient as well as sized the patient for compression stockings so that she can go and visit drug [place] for sizing and fitting which she was understanding of. Follow-up at the wound care center with Dr. Solano in 2 week. (2) Peripheral vascular disease: CODE(S): I73.9 - Peripheral vascular disease, unspecified
[2023-10-09 10:41] VITALS: BP 185/83; PULSE 94; RESP 18
--- NOTE | 2023-10-10 09:06 | WC ---
PHOTO 10/02/2023 RT POST LEG
[2023-10-16 10:35] VITALS: BP 135/73; PULSE 87; RESP 18; TEMP 35.8
--- NOTE | 2023-10-16 12:22 | PCM.WC.PN ---
History of Present Illness Date of Service: 10/16/23 Chief Complaint: left heel ulcer left ankle ulcer- healed History of Wound: A 62-year-old female who presents to the wound care center today for left heel ulceration and bilateral lower extremity edema with multiple leg wounds secondary to previous blisters. In October 2019, patient had rubbing in shoes while shopping which led to a blister that developed into an ulceration. Patient was then seen by Dewey Amezquita.P.M. for wound care. Patient then became infected and was admitted to the hospital. Patient was noted to have OM on MRI. Patient wanted to avoid surgery so a residential course of appropriate IV antibiotics was the treatment chosen. Patient was also noted to have hyperglycemia and has worked with hospitalist and PCP to try to get better control. Blood sugar levels remain elevated. Patient also had LEAS obtained in the hospital which suggested patient had the proper blood flow to allow healing. Patient has since finished salvage determiner course of antibiotics. Patient has since been seen on a weekly basis in office with progression and regression of wound noted over the weeks. Patient has tried various dressing options including wet to dry and santyl. The most progress was noted with Santyl but patient ran out and was unable to refill due to insurance issues. During which time the wound regressed. She also has an offloading surgical shoe and offloading boot to relieve pressure. Patient care is henceforth being carried out at the wound care center. Patient not currently on any antibiotics. Patient has since began skin graft aplications significant improvement is been noted to her foot overall. Patient has finished epifix graft applications with some very small remaining wound noted to left heel. Patient has new wounds noted to bilateral third digits. The right 3rd digit wound has healed. Her left ankle ulcer remains healed Patient relates that ambulation is getting easier and she is rebuilding her strength slowly. She has not had any worsening of minor remaining heel wound since beginning ambulation again. 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 Her has been helping her change the dressings daily to the left heel. She had been following in the wound care center in 2021 for left heel ulceration but was subsequently lost to follow-up. She cites transportation issues. She presents to the wound care center today for continued care of her left heel ulceration and bilateral lower extremity wounds secondary to edema. Subjective Subjective Mrs. Sprague is a 63-year-old diabetic female presenting to the wound care center today for follow-up evaluation of full-thickness wounds to left leg. She has kept her bilateral compression dressing clean dry and intact. She denies any strikethrough. She denies trauma. Denies constitutional symptoms. No other complaints at this time. Objective Data Objective Data Vital Signs: Vital Signs Temp Pulse Resp BP O2 Del Method 96.5 F L 87 18 135/73 H Room Air 10/16/23 10:35 10/16/23 10:35 10/16/23 10:35 10/16/23 10:35 10/16/23 10:35 Oxygen Delivery Method Room Air Physical Exam Narrative Vascular: DP and PT pulses are faintly palpable secondary to edema. Nonpitting edema appreciated bilateral extremity. Evidence of hemosiderin deposits bilaterally. Skin temperature is warm to warm from proximal ankle to distal digits with no focal increase appreciated. Neurological: Light touch intact. Protective sensation is diminished. Dermatological: 2 full-thickness ulcerations appreciated to the left lower extremity on the lateral and posterior aspects, healed. Full-thickness ulceration appreciated to the right leg, healed. No sign of infection. Musculoskeletal: Muscle strength deferred. Mild pain to palpation of full-thickness ulceration to right leg. No pain with calf pressure. Debridement Note Debridement Note Post-Debridement Measurements and Additional Note: Post-Debridement Measurements/Treatment - Nurse 1 - General Ulcer Assessment Start: 10/02/23 10:26 Freq: Status: Active Protocol: [email or web address] Activity Type Activity Date Activity User E-sign Co-sign Detail Recorded Client Recorded Date Recorded By Document 10/02/23 10:26 KW ; 10/02/23 10:33 KW Document 10/16/23 10:35 KW ' 10/16/23 10:47 KW 10/02/23 10/16/23 10:26 10:35 - Today's Visit Information Type of service Follow-up Visit Follow-up Visit (Physician/FINANCIAL CONTROLLER (Physician/FINANCIAL CONTROLLER ) ) Arrival Mode Ambulatory, Ambulatory, Walker Walker Patient Identification Verified (Name & Yes Yes ) Vital Signs Temperature (97.8 F-99.1 F) 97.1 F L 96.5 F L Temperature Source Temporal Temporal Pulse Rate (60-100) 93 87 Pulse Location Monitor Monitor Respiratory Rate (12-18) 18 18 Respiratory rate source Observation Observation Oxygen Delivery Method Room Air Room Air Blood Pressure (90/60-120/80) 164/80 H 135/73 H Blood Pressure Mean (mm Hg) 108 93 Source Monitor Monitor Position Semi-Fowlers Semi-Fowlers Blood Pressure Location Left Arm Left Arm History Since Last Visit- (Skip if this is Patient's initial visit) Have you changed medications since your No No last visit? Any new allergies or adverse reactions No No Had a fall/change in ADL's that may No No increase risk of falls Signs or symptoms of abuse and/or No No neglect since last visit Have you been in the hospital since your Yes No last visit? Has dressing in place as prescribed Yes Yes Has compression in place as prescribed Yes Yes Has offloadiing in place as prescribed N/A N/A Experienced any changes in pain level or No No management Left Footwear Slipper Slipper Right Footwear Slipper Slipper Pain Scale: 0-10 Numeric Is Patient Pain Free? No Yes ble -Description Sharp -Intensity 6 -Pain Behavior Restlessness -Alleviating Factors/Interventions Medication, Medicate when due,Turning/ Repositioning WC - Nurse 1 - General Ulcer Measurement Start: 10/02/23 10:26 Freq: Status: Active Protocol: Activity Type Activity Date Activity User E-sign Co-sign Detail Recorded Client Recorded Date Recorded By Document 10/02/23 10:26 KW ; 10/02/23 10:33 KW Document 10/16/23 10:35 KW ' 10/16/23 10:47 KW 10/02/23 10/16/23 10:26 10:35 Wound Center Nurse 1 22-right posterior leg -Current Size (cm) - Length 0.1 -Current Size (cm) - Width 0.1 -Current Size (cm) - Depth 0.1 -Total Square Cm 0.01 -Date of Last Picture (Recall this 10/02/23 field) -Epithelialization Large 67-100% -Temperature (Bren-wound Skin No Abnormality Appearance) (Pt Warm) -Tenderness on Palpation (Bren-wound No Skin Appearance) -Ulcer Cleansing Soap and Water Right Calf (cm) 34 32.5 Right Ankle (cm) 24 23 Left Calf (cm) 33.7 33.2 Left Ankle (cm) 22.5 21.5 WC - Nurse 2 - General Ulcer CM Notes Start: 10/02/23 10:26 Freq: Status: Active Protocol: Activity Type Activity Date Activity User E-sign Co-sign Detail Recorded Client Recorded Date Recorded By Document 10/02/23 10:48 0000 10/02/23 10:48 Document 10/16/23 11:17 [facility] 10/16/23 11:18 10/02/23 10/16/23 10:48 11:17 Wound Center Nurse 2 22-right posterior leg -Correct Patient No -Correct Side, Site, Position No -Correct Procedure No -Procedure Performed No -Post Debridement (cm) - Length 0 -Post Debridement (cm) - Width 0 -Post Debridement (cm) - Depth 0 -Total Square (Post) (cm) 0 -Area of Debridement (cm) - Length 0 -Area of Debridement (cm) - Width 0 -Total Square (Area) (cm) 0 -Wound/Ulcer Outcome Healed- Epithelialized Pain Scale: 0-10 Numeric Is Patient Pain Free? Yes Yes - Nurse 3 - General Ulcer D/C NN Start: 10/02/23 10:26 Freq: Status: Active Protocol: Activity Type Activity Date Activity User E-sign Co-sign Detail Recorded Client Recorded Date Recorded By Document 10/02/23 11:09 [facility] 10/02/23 11:09 Document 10/09/23 10:41 NM [id number] 10/09/23 11:01 NM Document 10/16/23 11:28 [facility] 10/16/23 11:29 10/02/23 10/09/23 10/16/23 11:09 10:41 11:28 Wound Care Center Nurse 3 BLE -Lotion applied to leg before Yes Yes compression wrap -Multi-Layered Wrap Application Multi-Layer Multi-Layer Multi-Layer Comp - Bilat ($ Comp - Bilat ($ Comp - Bilat ($ ) ) ) Vital Signs Pulse Rate (60-100) 94 Pulse Location Monitor Respiratory Rate (12-18) 18 Respiratory rate source Observation Oxygen Delivery Method Room Air Blood Pressure (90/60-120/80) 185/83 H Blood Pressure Mean (mm Hg) 117 Source Monitor Position Sitting Blood Pressure Location Right Forearm Pain Scale: 0-10 Numeric Is Patient Pain Free? Yes Yes Yes - Visit Discharge Discharge Condition Stable Stable Stable Ambulatory Status Ambulatory, Ambulatory, Ambulatory Walker Wheelchair Transportation Private Auto Private Auto Medication Reconcilliation completed & No provided to patient/care provider Clinical Summary of Care Provided Yes Yes Yes Notes: nurse visit to change 3Ms bilat Assessment/Plan Assessment/Plan (1) Non-pressure chronic ulcer of other part of right lower leg with fat layer exposed: CODE(S): L97.812 - Non-pressure chronic ulcer of other part of right lower leg with fat layer exposed PLAN: Patient was examined and evaluated. All findings were discussed with the patient. All questions were answered to the patient's satisfaction. The patient's wounds have now healed to the right lower extremity. The patient will be placed in bilateral 3M compression wraps to keep her edema under control so she does not breakdown and create new wounds. Patient will follow-up in 1 week and have compression stockings donned. Follow-up at the wound care center with Dr. Solano in 1 week. (2) Peripheral vascular disease: CODE(S): I73.9 - Peripheral vascular disease, unspecified
[2023-10-23 10:28] VITALS: BP 146/72; PULSE 86; RESP 18; TEMP 36
--- NOTE | 2023-10-23 12:27 | PCM.WC.PN ---
History of Present Illness Date of Service: 10/23/23 Chief Complaint: left heel ulcer left ankle ulcer- healed History of Wound: A 62-year-old female who presents to the wound care center today for left heel ulceration and bilateral lower extremity edema with multiple leg wounds secondary to previous blisters. In October 2019, patient had rubbing in shoes while shopping which led to a blister that developed into an ulceration. Patient was then seen by Dewey Amezquita.P.M. for wound care. Patient then became infected and was admitted to the hospital. Patient was noted to have OM on MRI. Patient wanted to avoid surgery so a terminal superintendent course of appropriate IV antibiotics was the treatment chosen. Patient was also noted to have hyperglycemia and has worked with hospitalist and PCP to try to get better control. Blood sugar levels remain elevated. Patient also had LEAS obtained in the hospital which suggested patient had the proper blood flow to allow healing. Patient has since finished terminal superintendent course of antibiotics. Patient has since been seen on a weekly basis in office with progression and regression of wound noted over the weeks. Patient has tried various dressing options including wet to dry and santyl. The most progress was noted with Santyl but patient ran out and was unable to refill due to insurance issues. During which time the wound regressed. She also has an offloading surgical shoe and offloading boot to relieve pressure. Patient care is henceforth being carried out at the wound care center. Patient not currently on any antibiotics. Patient has since began skin graft aplications significant improvement is been noted to her foot overall. Patient has finished epifix graft applications with some very small remaining wound noted to left heel. Patient has new wounds noted to bilateral third digits. The right 3rd digit wound has healed. Her left ankle ulcer remains healed Patient relates that ambulation is getting easier and she is rebuilding her strength slowly. She has not had any worsening of minor remaining heel wound since beginning ambulation again. 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 Her has been helping her change the dressings daily to the left heel. She had been following in the wound care center in 2021 for left heel ulceration but was subsequently lost to follow-up. She cites transportation issues. She presents to the wound care center today for continued care of her left heel ulceration and bilateral lower extremity wounds secondary to edema. Subjective Subjective Mrs. Sprague is a 63-year-old diabetic female presenting to the wound care center today for follow-up evaluation of full-thickness wounds to left leg. She has kept her bilateral compression dressing clean dry and intact. She denies any strikethrough. She denies trauma. Denies constitutional symptoms. No other complaints at this time. Objective Data Objective Data Vital Signs: Vital Signs Temp Pulse Resp BP O2 Del Method 96.8 F L 86 18 146/72 H Room Air 10/23/23 10:10/23/23 10:10/23/23 10:28 10/23/23 10:10/23/23 10:28 Oxygen Delivery Method Room Air Physical Exam Narrative Vascular: DP and PT pulses are faintly palpable secondary to edema. Nonpitting edema appreciated bilateral extremity. Evidence of hemosiderin deposits bilaterally. Skin temperature is warm to warm from proximal ankle to distal digits with no focal increase appreciated. Neurological: Light touch intact. Protective sensation is diminished. Dermatological: 2 full-thickness ulcerations appreciated to the left lower extremity on the lateral and posterior aspects, healed. Full-thickness ulceration appreciated to the right leg, healed. No sign of infection. Evidence of serous filled bullae to the left foot no sign of infection. Musculoskeletal: Muscle strength deferred. Mild pain to palpation of full-thickness ulceration to right leg. No pain with calf pressure. Debridement Note Debridement Note Post-Debridement Measurements and Additional Note: Post-Debridement Measurements/Treatment - Nurse 1 - General Ulcer Assessment Start: 10/02/23 10:26 Freq: Status: Active Protocol: MOOK Activity Type Activity Date Activity User E-sign Co-sign Detail Recorded Client Recorded Date Recorded By Document 10/02/23 10:26 KW ; 10/02/23 10:33 KW Document 10/16/23 10:35 KW ' 10/16/23 10:47 KW Document 10/23/23 10:28 KW d 10/23/23 10:33 KW 10/02/23 10/16/23 10/23/23 10:26 10:35 10:28 - Today's Visit Information Type of service Follow-up Visit Follow-up Visit Follow-up Visit (Physician/ASBESTOS BRAKE LINING FINISHER (Physician/ASBESTOS BRAKE LINING FINISHER (Physician/ASBESTOS BRAKE LINING FINISHER ) ) ) Arrival Mode Ambulatory, Ambulatory, Ambulatory, Walker Walker Walker Patient Identification Verified (Name & Yes Yes Yes ) Vital Signs Temperature (97.8 F-99.1 F) 97.1 F L 96.5 F L 96.8 F L Temperature Source Temporal Temporal Temporal Pulse Rate (60-100) 93 87 86 Pulse Location Monitor Monitor Monitor Respiratory Rate (12-18) 18 18 18 Respiratory rate source Observation Observation Observation Oxygen Delivery Method Room Air Room Air Room Air Blood Pressure (90/60-120/80) 164/80 H 135/73 H 146/72 H Blood Pressure Mean (mm Hg) 108 93 96 Source Monitor Monitor Monitor Position Semi-Fowlers Semi-Fowlers Semi-Fowlers Blood Pressure Location Left Arm Left Arm Right Arm History Since Last Visit- (Skip if this is Patient's initial visit) Have you changed medications since your No No No last visit? Any new allergies or adverse reactions No No No Had a fall/change in ADL's that may No No No increase risk of falls Signs or symptoms of abuse and/or No No No neglect since last visit Have you been in the hospital since your Yes No No last visit? Has dressing in place as prescribed Yes Yes No Has compression in place as prescribed Yes Yes Yes Has offloadiing in place as prescribed N/A N/A N/A Experienced any changes in pain level or No No No management Left Footwear Slipper Slipper No Footwear Right Footwear Slipper Slipper No Footwear Pain Scale: 0-10 Numeric Is Patient Pain Free? No Yes Yes ble -Description Sharp -Intensity 6 -Pain Behavior Restlessness -Alleviating Factors/Interventions Medication, Medicate when due,Turning/ Repositioning WC - Nurse 1 - General Ulcer Measurement Start: 10/02/23 10:26 Freq: Status: Active Protocol: Activity Type Activity Date Activity User E-sign Co-sign Detail Recorded Client Recorded Date Recorded By Document 10/02/23 10:26 KW ; 10/02/23 10:33 KW Document 10/16/23 10:35 KW ' 10/16/23 10:47 KW Document 10/23/23 10:28 KW d 10/23/23 10:33 KW 10/02/23 10/16/23 10/23/23 10:26 10:35 10:28 Wound Center Nurse 1 22-right posterior leg -Current Size (cm) - Length 0.1 -Current Size (cm) - Width 0.1 -Current Size (cm) - Depth 0.1 -Total Square Cm 0.01 -Date of Last Picture (Recall this 10/02/23 field) -Epithelialization Large 67-100% -Temperature (Bren-wound Skin No Abnormality Appearance) (Pt Warm) -Tenderness on Palpation (Bren-wound No Skin Appearance) -Ulcer Cleansing Soap and Water Right Calf (cm) 34 32.5 32.5 Right Ankle (cm) 24 23 22.7 Left Calf (cm) 33.7 33.2 32.5 Left Ankle (cm) 22.5 21.5 22.5 - Nurse 2 - General Ulcer CM Notes Start: 10/02/23 10:26 Freq: Status: Active Protocol: Activity Type Activity Date Activity User E-sign Co-sign Detail Recorded Client Recorded Date Recorded By Document 10/02/23 10:48 0000 10/02/23 10:48 Document 10/16/23 11:17 [facility] 10/16/23 11:18 Document 10/23/23 10:42 000 10/23/23 10:43 10/02/23 10/16/23 10/23/23 10:48 11:17 10:42 Wound Center Nurse 2 22-right posterior leg -Correct Patient No -Correct Side, Site, Position No -Correct Procedure No -Procedure Performed No -Post Debridement (cm) - Length 0 -Post Debridement (cm) - Width 0 -Post Debridement (cm) - Depth 0 -Total Square (Post) (cm) 0 -Area of Debridement (cm) - Length 0 -Area of Debridement (cm) - Width 0 -Total Square (Area) (cm) 0 -Wound/Ulcer Outcome Healed- Epithelialized Pain Scale: 0-10 Numeric Is Patient Pain Free? Yes Yes Yes - Nurse 3 - General Ulcer D/C NN Start: 10/02/23 10:26 Freq: Status: Active Protocol: Activity Type Activity Date Activity User E-sign Co-sign Detail Recorded Client Recorded Date Recorded By Document 10/02/23 11:09 [facility] 10/02/23 11:09 Document 10/09/23 10:41 IA [id number] 10/09/23 11:01 IA Document 10/16/23 11:28 [facility] 10/16/23 11:29 GM Document 10/23/23 10:43 JF 000 10/23/23 10:43 JF 10/02/23 10/09/23 10/16/23 11:09 10:41 11:28 Wound Care Center Nurse 3 BLE -Lotion applied to leg before Yes Yes compression wrap -Multi-Layered Wrap Application Multi-Layer Multi-Layer Multi-Layer Comp - Bilat ($ Comp - Bilat ($ Comp - Bilat ($ ) ) ) -Stockings Vital Signs Pulse Rate (60-100) 94 Pulse Location Monitor Respiratory Rate (12-18) 18 Respiratory rate source Observation Oxygen Delivery Method Room Air Blood Pressure (90/60-120/80) 185/83 H Blood Pressure Mean (mm Hg) 117 Source Monitor Position Sitting Blood Pressure Location Right Forearm Pain Scale: 0-10 Numeric Is Patient Pain Free? Yes Yes Yes WC - Visit Discharge Discharge Condition Stable Stable Stable Ambulatory Status Ambulatory, Ambulatory, Ambulatory Walker Wheelchair Transportation Private Auto Private Auto Medication Reconcilliation completed & No provided to patient/care provider Clinical Summary of Care Provided Yes Yes Yes Notes: nurse visit to change 3Ms bilat 10/23/23 10:43 Wound Care Center Nurse 3 BLE -Lotion applied to leg before compression wrap -Multi-Layered Wrap Application -Stockings Yes: 15-20mmHg Vital Signs Pulse Rate (60-100) Pulse Location Respiratory Rate (12-18) Respiratory rate source Oxygen Delivery Method Blood Pressure (90/60-120/80) Blood Pressure Mean (mm Hg) Source Position Blood Pressure Location Pain Scale: 0-10 Numeric Is Patient Pain Free? Yes WC - Visit Discharge Discharge Condition Stable Ambulatory Status Ambulatory, Walker Transportation Private Auto Medication Reconcilliation completed & Yes provided to patient/care provider Clinical Summary of Care Provided Yes Notes: Assessment/Plan Assessment/Plan (1) Non-pressure chronic ulcer of other part of right lower leg with fat layer exposed: CODE(S): L97.812 - Non-pressure chronic ulcer of other part of right lower leg with fat layer exposed PLAN: Patient was examined and evaluated. All findings were discussed with the patient. All questions were answered to the patient's satisfaction. Left foot blister was drained so no sign of infection. Betadine paint was donned followed by sterile Band-Aid. Patient will continue home dressing changes as needed. Patient's bio leg wounds are healed. She has been compliant with her multilayer compression bandage. Compression stockings were dispensed to the patient 15 to 20 mmHg. Patient was educated how to remove and don the compression. They were a good fit. Patient will continue to check her legs twice per day. She is a diabetic and will continue to monitor her blood sugar. Patient will follow-up to wound care center with Dr. Solano as needed. (2) Peripheral vascular disease: CODE(S): I73.9 - Peripheral vascular disease, unspecified (3) Acute painful diabetic polyneuropathy: CODE(S): E11.42 - Type 2 diabetes mellitus with diabetic polyneuropathy
== END 2023-10-25 08:41 | disposition home or self-care (01) ==
LOC: WC 10:30
PROVIDERS: PCP Family Medicine; Referring Provider Podiatrist Foot & Ankle Surgery; Visit Provider Podiatrist Foot & Ankle Surgery
DX: L97.812 Non-pressure chronic ulcer of other part of right lower leg with fat layer exposed (principal); E11.42 Type 2 diabetes mellitus with diabetic polyneuropathy; I73.9 Peripheral vascular disease, unspecified
CPT/HCPCS: 29581; 99213; G0463

== ENCOUNTER 2023-10-28 08:46 | Day surgery (SDC) | payer MEDICARE, MEDICAID, SELFPAY ==
[2023-10-28 09:16] VITALS: BMI 25.0
--- NOTE | 2023-10-28 12:40 | PCM.OPRPT ---
Report of Operation Date of Procedure: 10/28/23 Pre-Operative Diagnosis: AV fistula stenosis Post-Operative Diagnosis: same Surgery/Procedure Performed:: fistulagram IVUS IVC, SVC, left innominate vein, subclavian vein, axillary vein, basilic angioplasty left innominate vein Surgeon: Arnold Paz Type of Anesthesia: Local and Sedation,Conscious Estimated Blood Loss (mL): 2 Description of Procedure: HPI: Patient is a 63-year-old female with previously created left radiocephalic fistula she has had multiple fistulogram's and interventions. She has developed increased circuit pressure and prolonged bleeding at the completion of her dialysis sessions as well as significant left upper extremity edema. She presents now for fistulogram with possible intervention. Description of procedure: Upon obtaining informed consent and verification correct patient procedure site patient was taken to the [facility] where she was positioned prepped and draped in usual sterile fashion. Timeout was performed and conscious sedation administered Versed and fentanyl. Skin overlying the fistula was anesthetized 1% lidocaine and the vessel accessed under ultrasound guidance with a micropuncture needle wire. This was exchanged out for a 6 Slovenian fistula sheath through which hand-injection digital subtraction fistulogram was performed including the central venous structures. This revealed widely patent radiocephalic fistula with dominant outflow via the basilic vein which was large caliber with brisk contrast transit. 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 Through the 6 Slovenian sheath a Bentson wire and an angled glide catheter were advanced and utilized to engage the occlusion. The Bentson wire was then exchanged for a Glidewire which was utilized to traverse the total occlusion advancing a wire into the superior vena cava and ultimately into the inferior vena cava. The catheter was then advanced over the wire and hand-injection subtraction angiography performed which revealed positioning within the inferior vena cava with no extravasation or dissection. A glide advantage wire was then advanced to the catheter and the glide catheter and 6 Slovenian sheath exchanged for an 8 Slovenian sheath. Through the 8 Slovenian sheath and intravascular ultrasound probe was advanced and recorded pullback performed of the IVC, SVC, left innominate vein, left subclavian vein, left axillary vein, left basilic vein. This confirmed total occlusion of the innominate vein and provided reference vessel size of the proximal and distal end of the occlusion. The patient was then heparinized and allowed to circulate for 3 minutes after which the IVUS catheter was withdrawn and a 6 mm x 40 Bard conquest balloon advanced into position and inflated across the lesion to nominal for 2 minutes at each inflation and then deflated and withdrawn. Next a 8 x 40 conquest balloon was similarly advanced in position and serially inflated across the lesion. This was then followed by 9 mm x 80 OffiSyn[employer]ronic Stackifyiral Impact drug-coated angioplasty balloon inflated to nominal for 3 minutes and then deflated and withdrawn. Finally of the lesion was postdilated with a 10 mm x 40 conquest balloon for multiple inflations across the lesion. Completion angiography confirmed satisfactory result with brisk contrast transit across the treated vessel with no extravasation or dissection. Next the fistula was manually compressed and hand-injection subtraction angiography via the sheath was performed with reflux into the arterial anastomosis which revealed a widely patent radiocephalic fistula anastomosis with no evidence of any stenosis. U-stitch was then placed in the skin and the sheath withdrawn with manual pressure held for 2 minutes with satisfactory stasis noted. The patient was then taken recovery room with plans to discharge to home.
== END 2023-10-28 13:35 | disposition home or self-care (01) ==
PROVIDERS: PCP Family Medicine; Referring Provider Surgery Trauma Surgery; Visit Provider Surgery Trauma Surgery
DX: T82.898A Other specified complication of vascular prosthetic devices, implants and grafts, initial encounter (principal); N18.5 Chronic kidney disease, stage 5; Z79.4 Long term (current) use of insulin; E11.22 Type 2 diabetes mellitus with diabetic chronic kidney disease; F32.A Depression, unspecified; Z79.82 Long term (current) use of aspirin; Z79.899 Other long term (current) drug therapy; X58.XXXA Exposure to other specified factors, initial encounter
CPT/HCPCS: 36901; 37248; 37252; 37253; 76937; 99152; 99153; C1753; C1769; C2623; J7040; Q9967; C1725; C1894

== ENCOUNTER 2023-11-23 19:21 | Emergency (ER) | payer MEDICARE, MEDICAID, SELFPAY ==
[2023-11-23 19:22] VITALS: BP 147/67; PULSE 81; RESP 16; TEMP 36.4; O2SAT 100; BMI 26.6
--- NOTE | 2023-11-23 19:59 | EDS_ITS ---
HPI History of Present Illness Chief Complaint: [facility] Medical History Colitis Proctitis Ulcer of left ankle Non-pressure chronic ulcer of other part of left foot with fat layer exposed Personal history of colonic polyps Non-pressure chronic ulcer of other part of right foot with fat layer exposed Pressure ulcer of left heel, stage 2 Pain in left foot Osteomyelitis Ulcer of left heel Severe sepsis Hypoglycemia due to insulin Stage 5 chronic kidney disease due to type 2 diabetes mellitus Long-term insulin use Walker as ambulation aid History of renal disease Difficulty chewing History of renal dialysis Accidental fall Depression Uses wheelchair Arthritis Bilateral pleural effusion CKD (chronic kidney disease) stage 4, GFR 15-29 ml/min Anemia Diabetes mellitus with hyperglycemia Transfusion of blood during current hospitalisation Symptomatic anemia Diabetes HTN (hypertension) Closed intertrochanteric fracture of left hip Wears glasses Insulin dependent diabetes mellitus Low iron Excessive bleeding High cholesterol Migraine headache Injury of head and neck Syncope Vomiting Dietary restriction Gastric reflux Non-smoker History of edema History of echocardiogram History of stress test Cardiology follow-up encounter Hx of orthostatic hypotension Chronic pain syndrome Malnutrition Essential hypertension Vertigo Migraine without aura HLD (hyperlipidemia) Post-concussion syndrome History of orthostatic hypotension Home Medications ?Medication ?Instructions ?Recorded ?Last Taken ?Type aspirin 81 mg chewable tablet 81 mg PO QHS HEART HEALTH 12/15/19 11/20/22 History atorvastatin 40 mg tablet 40 mg PO QHS CHOLESTEROL 12/15/19 11/19/22 History insulin lispro 100 unit/mL 8 unit subcut TIDCM diabetes 01/06/22 03/13/23 History subcutaneous pen (Humalog KwikPen (U-100) Insulin) sertraline 50 mg tablet 50 mg PO QHS DEPRESSION 01/06/22 11/20/22 History polyethylene glycol 3350 17 gram 17 g PO DAILY PRN Constipation 02/13/22 03/13/22 History oral powder packet pregabalin 75 mg capsule 75 mg PO BID #10 caps 05/04/22 11/20/22 Rx calcium acetate(phosphat bind) 667 667 mg PO TID 05/25/22 11/19/22 History mg capsule tramadol 50 mg tablet 50 mg PO Q6H PRN pain 3 days #5 05/30/22 06/03/23 Rx tabs insulin glargine 100 unit/mL (3 10 unit subcut QPM 06/14/22 11/19/22 History mL) subcutaneous pen (Lantus Solostar U-100 Insulin) diltiazem HCl 180 mg 240 mg PO DAILY 11/28/22 Unknown History capsule,extended release 24 hr hydralazine 50 mg tablet 25 mg PO TID 11/28/22 Unknown History flash glucose scanning reader #1 ea 12/07/22 Unknown Rx (FreeStyle Yane 2 [place]) flash glucose sensor (FreeStyle #2 ea 12/07/22 Unknown Rx Yane 2 Sensor kit) pantoprazole 40 mg tablet,delayed 40 mg PO Q12H 12/10/22 Unknown History release ondansetron 4 mg disintegrating 4 mg PO Q8H PRN PRN Nausea #10 tabs 03/17/23 Unknown Rx tablet clonidine HCl 0.3 mg tablet 0.3 mg PO Q12H 04/17/23 Unknown History meclizine 25 mg tablet 12.5 mg (1/2 x 25 mg) PO BID PRN 10/01/23 Unknown Rx dizziness #10 tabs midodrine 10 mg tablet mg PO 10/18/23 Unknown History clopidogrel 75 mg tablet (Plavix) 75 mg PO DAILY #90 tabs 10/28/23 Unknown Rx Allergy/AdvReac Type Severity Reaction Status Date / Time metformin AdvReac Diarrhea Verified 09/04/23 10:28 Family History Mother Hypertension Father Cancer lymphoma, leukemia Emphysema of lung Hypertension Grandmother Diabetes CVA (cerebral vascular accident) Surgical History S/P arteriovenous (AV) graft repair S/P arteriovenous (AV) fistula repair S/P arteriovenous (AV) fistula creation S/P dialysis catheter insertion History of esophagogastroduodenoscopy (EGD) Hx of colonoscopy History of mandibular surgery History of cholecystectomy Social History household members: significant other housing: custodial Smoking Status: Never smoker alcohol intake: never substance use type: does not use EXAM Physical Exam Const Vital Signs: 11/23/23 19:21 11/23/23 19:22 11/23/23 21:21 Temperature 97.5 F L Temperature Source Temporal Pulse Rate 81 65 Respiratory Rate 16 16 Blood Pressure 147/67 H Blood Pressure Mean 93 Pulse Ox 100 98 Oxygen Delivery Method Room Air Room Air Room Air 11/23/23 21:57 Temperature 98 F Temperature Source Pulse Rate 84 Respiratory Rate 15 Blood Pressure 161/84 H Blood Pressure Mean 109 Pulse Ox 100 Oxygen Delivery Method [facility] Narrative Medical decision making narrative: HISTORY OF PRESENT ILLNESS: 63-year-old female presents with concern for bleeding from fistula today. States she underwent dialysis and has not saw bleeding since. Denies lightheadedness, dizziness, chest pain. REVIEW OF SYSTEMS: Pertinent positives: Bleeding from fistula site, rash Pertinent negatives: Chest pain, lightheadedness, dizziness PHYSICAL EXAM: Nursing triage notes reviewed, Vital signs reviewed Constitutional: please see mdm HENT: MMM Eyes: Pupils equal round and reactive to light, Extraocular muscles intact Neck: No stridor, no JVD, full neck ROM Lungs: Clear to auscultation, No wheezing or rales. No increased work of breathing, no conversational dyspnea, no accessory muscle use, no nasal flaring. No respiratory distress noted Heart: Regular rate and rhythm, No murmurs, No rubs and No gallops, 2+ distal pulses (radial, femoral, posterior tibial) in all extremities Abdomen: Soft, there is no tenderness, rigidity, rebound or guarding, no obvious peritoneal signs, no palpable pulsatile abdominal masses, no auscultated abdominal bruit : No CVAT Extremities: No edema, palpable thrill through left upper extremity AV fistula, oozing of blood noted but no pulsatile bleeding. Neuro: No focal neurological deficits, cranial nerves II through XII intact, 5/5 strength in all extremities. Intact sensation to light touch in all extremities, 2+ reflexes bilateral patella tendons. Normal gait. No ataxia. Skin: Urticarial rash noted over the chest. No fluctuance induration or crepitus noted. MEDICAL DECISION MAKING: Chief Complaint: Bleeding from fistula site Factors affecting care: ESRD [facility] Narrative: Patient was initially hemodynamically stable, afebrile and nontoxic-appearing. Exam without active bleeding, oozing noted from left upper extremity AV fistula site. AV fistula with palpable thrill. Placed Surgicel and placed a pressure dressing over the site. Observede the patient for 2-1/2 hours out obvious bleeding or extravasating blood through bandages. Told patient to leave bandage on for 24 hours and to unwrap gently at home. Follow-up with dialysis at the next available session. The patient and/or family, caregivers express understanding. The patient and/or family, caregivers agrees with the plan. Shared decision making: I will have a discussion with the patient and or visitors regarding risk/benefits of further testing or admission. They will be made aware of of the risk/benefits inherent in this decision they will be given the opportunity to voice understanding. Total critical care time today provided was at least 0 minutes. This excludes separately billable procedures. Critical care time (if documented) is secondary to the patient having high probability of clinically significant/life threatening deterioration in the patient's condition which required my urgent intervention. Impression: 1. History of ESRD 2. Bleeding from AV fistula site Dispo: Discharge home This note was generated with [employer] dictation software. It may contain incorrect words, spelling, and punctuation that were not noted in review of the chart prior to signing. Discharge Plan Triage Chief Complaint: Wound ED Provider: Louis Aleman Dx/Rx/DC Orders Instructions: ED Hemodialysis Access Bleeding Prescriptions: No Action (DME) FreeStyle Yane 2 [place] Misc See Rx Instructions .Route Qty: 1 0RF Rx Instructions: As directed (DME) FreeStyle Yane 2 Sensor Kit See Rx Instructions .Route Qty: 2 6RF Rx Instructions: As directed hydralazine 50 mg tablet 25 mg PO TID diltiazem HCl 180 mg capsule,extended release 24hr 240 mg PO DAILY pantoprazole 40 mg tablet,delayed release (DR/EC) 40 mg PO Q12H clonidine HCl 0.3 mg tablet 0.3 mg PO Q12H atorvastatin 40 MG tablet 40 mg PO QHS aspirin 81 MG tablet,chewable 81 mg PO QHS insulin lispro [Humalog KwikPen Insulin] 100 unit/mL insulin pen 8 unit subcut TIDCM Rx Instructions: with meals sertraline 50 mg tablet 50 mg PO QHS polyethylene glycol 3350 17 gram powder in packet 17 g PO DAILY PRN (Reason: Constipation) pregabalin 75 mg Capsule 75 mg PO BID Qty: 10 0RF calcium acetate(phosphat bind) 667 mg Capsule 667 mg PO TID tramadol 50 mg tablet 50 mg PO Q6H PRN (Reason: pain) 3 Days Qty: 5 0RF insulin glargine [Lantus Solostar U-100 Insulin] 100 unit/mL (3 mL) Insulin Pen 10 unit SUBCUT QPM ondansetron 4 mg tablet,disintegrating 4 mg PO Q8H PRN PRN (Reason: Nausea) Qty: 10 0RF meclizine 25 mg tablet 12.5 mg PO BID PRN (Reason: dizziness) Qty: 10 0RF clopidogrel [Plavix] 75 mg tablet 75 mg PO DAILY Qty: 90 0RF Primary Care Provider: Dennys Serrano Referrals: Dennys Serrano MD [Primary Care Provider] - Activity Restrictions/Additional Instructions: Thank you for trusting us with your care today! Please take Tylenol (2 pills, 650 mg) every 6 hours as needed for pain and fever control. Please return to the emergency department if your symptoms change or worsen. Please leave dressing on for 24 hours. Please follow with your primary care physician for further outpatient evaluation and management. Print Language: Senegalese Disposition Disposition: Home, Self Care
[2023-11-23] MEDS: DiphenhydrAMINE 25 MG Capsule 50 MG PO (20:26)
[2023-11-23] MEDS: Silver Nitrate (BKC) 1 EACH TOPICAL (20:26)
[2023-11-23 21:21] VITALS: PULSE 65; RESP 16; O2SAT 98
[2023-11-23 21:57] VITALS: BP 161/84; PULSE 84; RESP 15; TEMP 36.6; O2SAT 100
== END 2023-11-23 22:03 | disposition home or self-care (01) ==
PROVIDERS: Emergency Provider Emergency Medicine; PCP Family Medicine; Visit Provider Emergency Medicine
DX: T82.838A Hemorrhage due to vascular prosthetic devices, implants and grafts, initial encounter (principal); I12.0 Hypertensive chronic kidney disease with stage 5 chronic kidney disease or end stage renal disease; N18.6 End stage renal disease; E11.22 Type 2 diabetes mellitus with diabetic chronic kidney disease; Z79.4 Long term (current) use of insulin; E78.5 Hyperlipidemia, unspecified; R21 Rash and other nonspecific skin eruption; F32.A Depression, unspecified; M19.90 Unspecified osteoarthritis, unspecified site; K21.9 Gastro-esophageal reflux disease without esophagitis; Z79.899 Other long term (current) drug therapy; Z79.82 Long term (current) use of aspirin
CPT/HCPCS: 99282

== ENCOUNTER 2023-11-26 13:14 | Emergency (ER) | payer MEDICARE, MEDICAID, SELFPAY ==
[2023-11-26 13:16] VITALS: BP 138/66; PULSE 85; RESP 16; TEMP 35.8; O2SAT 99; BMI 25.7
--- NOTE | 2023-11-26 13:40 | EX.ED.DYSGE1 ---
HPI History of Present Illness Chief Complaint: Weakness [facility] Medical History (Updated 11/26/23 @ 14:[address] Louis Aleman, DO) Colitis Proctitis Ulcer of left ankle Non-pressure chronic ulcer of other part of left foot with fat layer exposed Personal history of colonic polyps Non-pressure chronic ulcer of other part of right foot with fat layer exposed Pressure ulcer of left heel, stage 2 Pain in left foot Osteomyelitis Ulcer of left heel Severe sepsis Hypoglycemia due to insulin Stage 5 chronic kidney disease due to type 2 diabetes mellitus Long-term insulin use Walker as ambulation aid History of renal disease Difficulty chewing History of renal dialysis Accidental fall Depression Uses wheelchair Arthritis Bilateral pleural effusion CKD (chronic kidney disease) stage 4, GFR 15-29 ml/min Anemia Diabetes mellitus with hyperglycemia Transfusion of blood during current hospitalisation Symptomatic anemia Diabetes HTN (hypertension) Closed intertrochanteric fracture of left hip Wears glasses Insulin dependent diabetes mellitus Low iron Excessive bleeding High cholesterol Migraine headache Injury of head and neck Syncope Vomiting Dietary restriction Gastric reflux Non-smoker History of edema History of echocardiogram History of stress test Cardiology follow-up encounter Hx of orthostatic hypotension Chronic pain syndrome Malnutrition Essential hypertension Vertigo Migraine without aura HLD (hyperlipidemia) Post-concussion syndrome History of orthostatic hypotension Home Medications ?Medication ?Instructions ?Recorded ?Last Taken ?Type aspirin 81 mg chewable tablet 81 mg PO QHS HEART HEALTH 12/15/19 11/20/22 History atorvastatin 40 mg tablet 40 mg PO QHS CHOLESTEROL 12/15/19 11/19/22 History insulin lispro 100 unit/mL 8 unit subcut TIDCM diabetes 01/06/22 03/13/23 History subcutaneous pen (Humalog KwikPen (U-100) Insulin) sertraline 50 mg tablet 50 mg PO QHS DEPRESSION 01/06/22 11/20/22 History polyethylene glycol 3350 17 gram 17 g PO DAILY PRN Constipation 02/13/22 03/13/22 History oral powder packet pregabalin 75 mg capsule 75 mg PO BID #10 caps 05/04/22 11/20/22 Rx calcium acetate(phosphat bind) 667 667 mg PO TID 05/25/22 11/19/22 History mg capsule tramadol 50 mg tablet 50 mg PO Q6H PRN pain 3 days #5 05/30/22 06/03/23 Rx tabs insulin glargine 100 unit/mL (3 10 unit subcut QPM 06/14/22 11/19/22 History mL) subcutaneous pen (Lantus Solostar U-100 Insulin) diltiazem HCl 180 mg 240 mg PO DAILY 11/28/22 Unknown History capsule,extended release 24 hr hydralazine 50 mg tablet 25 mg PO TID 11/28/22 Unknown History flash glucose scanning reader #1 ea 12/07/22 Unknown Rx (FreeStyle Yane 2 Grant) flash glucose sensor (FreeStyle #2 ea 12/07/22 Unknown Rx Yane 2 Sensor kit) pantoprazole 40 mg tablet,delayed 40 mg PO Q12H 12/10/22 Unknown History release ondansetron 4 mg disintegrating 4 mg PO Q8H PRN PRN Nausea #10 tabs 03/17/23 Unknown Rx tablet clonidine HCl 0.3 mg tablet 0.3 mg PO Q12H 04/17/23 Unknown History meclizine 25 mg tablet 12.5 mg (1/2 x 25 mg) PO BID PRN 10/01/23 Unknown Rx dizziness #10 tabs midodrine 10 mg tablet mg PO 10/18/23 Unknown History clopidogrel 75 mg tablet (Plavix) 75 mg PO DAILY #90 tabs 10/28/23 Unknown Rx Allergy/AdvReac Type Severity Reaction Status Date / Time metformin AdvReac Diarrhea Verified 11/26/23 13:24 Family History Mother Hypertension Father Cancer lymphoma, leukemia Emphysema of lung Hypertension Grandmother Diabetes CVA (cerebral vascular accident) Surgical History S/P arteriovenous (AV) graft repair S/P arteriovenous (AV) fistula repair S/P arteriovenous (AV) fistula creation S/P dialysis catheter insertion History of esophagogastroduodenoscopy (EGD) Hx of colonoscopy History of mandibular surgery History of cholecystectomy Social History household members: significant other housing: retirement Smoking Status: Never smoker alcohol intake: never substance use type: does not use EXAM Physical Exam Const Vital Signs: 11/26/23 13:16 11/26/23 13:25 11/26/23 14:41 Temperature 96.5 F L Temperature Source Axillary Pulse Rate 85 80 Respiratory Rate 16 19 H Respiratory Effort Normal Non-Labored Respiratory Pattern Normal Blood Pressure 138/66 H 148/61 H Blood Pressure Mean 90 90 Pulse Ox 99 100 Oxygen Delivery Method Room Air Room Air 11/26/23 14:58 Temperature 98 F Temperature Source Pulse Rate 78 Respiratory Rate 15 Respiratory Effort Respiratory Pattern Blood Pressure 129/54 H Blood Pressure Mean 79 Pulse Ox 100 Oxygen Delivery Method MDM MDM MDM Narrative Medical decision making narrative: HISTORY OF PRESENT ILLNESS: 63-year-old female history of ESRD (dialysis Saturday, and Saturday) presents with feeling diffusely weak after dialysis. Notes rash as well for she had IV Benadryl during dialysis. Notes diffuse weakness. No focal weakness. Patient denies chest pain or discomfort. Denies the following interview of systems as well. REVIEW OF SYSTEMS: Pertinent positives: Diffuse weakness Pertinent negatives: Focal weakness, headache, chest pain, bleeding diathesis, shortness of breath, urinary complaints PHYSICAL EXAM: Nursing triage notes reviewed, Vital signs reviewed Constitutional: please see mdm HENT: MMM Eyes: Pupils equal round and reactive to light, Extraocular muscles intact Neck: No stridor, no JVD, full neck ROM Lungs: Clear to auscultation, No wheezing or rales. No increased work of breathing, no conversational dyspnea, no accessory muscle use, no nasal flaring. No respiratory distress noted Heart: Regular rate and rhythm, No murmurs, No rubs and No gallops, 2+ distal pulses (radial, femoral, posterior tibial) in all extremities Abdomen: Soft, there is no tenderness, rigidity, rebound or guarding, no obvious peritoneal signs, no palpable pulsatile abdominal masses, no auscultated abdominal bruit : No CVAT Extremities: No edema, left upper extremity fistula palpable thrill, no bleeding noted Neuro: No focal neurological deficits, alert and orient x 3. Cranial nerves II through XII intact, 5/5 strength in all extremities. Intact sensation to light touch in all extremities. Neuroexam at baseline. No focal deficits noted on exam. Skin:, Left upper extremity fistula palpable thrill urticarial rash noted to the chest MEDICAL DECISION MAKING: Chief Complaint: Weakness External records reviewed: Reviewed prior ED record Factors affecting care: ESRD, hypertension, migraine, hyperlipidemia, type 2 diabetes Social determinants of health: none History obtained from others: none Consults: none [facility] Narrative: Patient was initially hemodynamically stable, afebrile and nontoxic-appearing. No focal neurologic deficits. Heart lungs were clear, fistula site clean dry intact no sign of infection. I considered the following differential diagnosis: Arrhythmia Anemia, electro disturbance, pneumonia, volume overload, arrhythmia, ACS I obtained labs images and treat the patient with oral Pepcid and Claritin. ALL IMAGES (IF OBTAINED) HAVE BEEN PERSONALLY REVIEWED AND INTERPRETED BY MYSELF. EKG with normal sinus rhythm, normal axis, no intervals, no STEMI arrhythmia Chest x-ray was read and reviewed person myself shows evidence of his volume overload, pneumonia CBC with no significant leukocytosis to suggest systemic inflammation, mild anemia that has improved from baseline, no thrombocytopenia BMP with mild hyponatremia otherwise no signs of metabolic acidosis with normal bicarb, no evidence of endorgan hypoperfusion, noted baseline ESRD is improved from prior studies The synthesis of the patient's history, physical exam, labs images suggest no acute life or limb threatening etiology. I suspect the patient is suffering from dialysis disequilibrium syndrome. As such I encouraged her to follow-up with her puller out to titrate her dialysis sessions more closely. Encouraged her to continue take Benadryl Pepcid daily to improve urticaria rash. The patient and/or family, caregivers express understanding. The patient and/or family, caregivers agrees with the plan. Shared decision making: I will have a discussion with the patient and or visitors regarding risk/benefits of further testing or admission. They will be made aware of of the risk/benefits inherent in this decision they will be given the opportunity to voice understanding. Total critical care time today provided was at least 0 minutes. This excludes separately billable procedures. Critical care time (if documented) is secondary to the patient having high probability of clinically significant/life threatening deterioration in the patient's condition which required my urgent intervention. Impression: 1. Dialysis disequilibrium syndrome 2. History of end-stage renal disease 3. Urticarial rash Dispo: Discharge home This note was generated with [employer] dictation software. It may contain incorrect words, spelling, and punctuation that were not noted in review of the chart prior to signing. Lab Data Labs: Laboratory Results - last 24 hr 11/26/23 14:00 WBC 10.4 RBC 3.74 L Hgb 11.0 L Hct 34.5 L MCV 92.2 MCH 29.4 MCHC 31.9 L RDW Std Deviation 50.5 H RDW Coeff of Chris 15.0 H Plt Count 264 MPV 11.4 Sodium 135 L Potassium 4.3 Chloride 95 L Carbon Dioxide 28.0 Anion Gap 12 BUN 34 H Creatinine 4.50 H Estim Creat Clear Calc 12.90 Est GFR (MDRD) Af Amer 13 L Est GFR (MDRD) Non-Af 11 L BUN/Creatinine Ratio 7.6 L Glucose 212 H Calcium 9.2 Radiography Diagnostic Testing: Clinical Impression(s) from Imaging Studies Chest X-Ray 11/26/23 14:05 IMPRESSION: Removal of internal jugular catheter. Stable borderline cardiomegaly with hyperinflation and no acute or active cardiopulmonary disease. Electronically Signed: Rai Carbajal MD at 14:14 EDT Reading Location ID and State: [facility] [place] , Service support , Discharge Plan Triage Chief Complaint: Weakness ED Provider: Louis Aleman Dx/Rx/DC Orders Clinical Impression: Dialysis disequilibrium syndrome, Generalized weakness Prescriptions: No Action (DME) FreeStyle Yane 2 Grant Misc See Rx Instructions .Route Qty: 1 0RF Rx Instructions: As directed (DME) FreeStyle Yane 2 Sensor Kit See Rx Instructions .Route Qty: 2 6RF Rx Instructions: As directed hydralazine 50 mg tablet 25 mg PO TID diltiazem HCl 180 mg capsule,extended release 24hr 240 mg PO DAILY pantoprazole 40 mg tablet,delayed release (DR/EC) 40 mg PO Q12H clonidine HCl 0.3 mg tablet 0.3 mg PO Q12H atorvastatin 40 MG tablet 40 mg PO QHS aspirin 81 MG tablet,chewable 81 mg PO QHS insulin lispro [Humalog KwikPen Insulin] 100 unit/mL insulin pen 8 unit subcut TIDCM Rx Instructions: with meals sertraline 50 mg tablet 50 mg PO QHS polyethylene glycol 3350 17 gram powder in packet 17 g PO DAILY PRN (Reason: Constipation) pregabalin 75 mg Capsule 75 mg PO BID Qty: 10 0RF calcium acetate(phosphat bind) 667 mg Capsule 667 mg PO TID tramadol 50 mg tablet 50 mg PO Q6H PRN (Reason: pain) 3 Days Qty: 5 0RF insulin glargine [Lantus Solostar U-100 Insulin] 100 unit/mL (3 mL) Insulin Pen 10 unit SUBCUT QPM ondansetron 4 mg tablet,disintegrating 4 mg PO Q8H PRN PRN (Reason: Nausea) Qty: 10 0RF meclizine 25 mg tablet 12.5 mg PO BID PRN (Reason: dizziness) Qty: 10 0RF clopidogrel [Plavix] 75 mg tablet 75 mg PO DAILY Qty: 90 0RF Primary Care Provider: Dennys Serrano Referrals: Dennys Serrano MD [Primary Care Provider] - Activity Restrictions/Additional Instructions: Thank you for trusting us with your care today! Please take Tylenol (2 pills, 650 mg), ibuprofen (2 pills, 400 mg) every 6 hours as needed for pain and fever control. Please take Pepcid, Zyrtec or Claritin daily for itching and rash control. Please return to the emergency department if your symptoms change or worsen. Please follow with your primary care physician for further outpatient evaluation and management. Print Language: Tanzanian Disposition Disposition: Home, Self Care Discharge Date/Time: 11/26/23 15:17
--- NOTE | 2023-11-26 13:42 | EKG12_ITS ---
Test Reason : Blood Pressure : / mmHG Vent. Rate : 081 BPM Atrial Rate : 081 BPM P-R Int : 166 ms QRS Dur : 094 ms QT Int : 400 ms P-R-T Axes : 052 047 053 degrees QTc Int : 464 ms Normal sinus rhythm Normal ECG Confirmed by Se Hinds ([id number]), film editor supervisor RAFI DOMINGO ([id number]) on 11/27/2023 10:14:12 AM Referred By: Confirmed By:Se Hinds
[2023-11-26] MEDS: Loratadine 10 MG Tablet PO (14:02)
[2023-11-26] MEDS: Famotidine 20 MG Tablet 40 MG PO (14:02)
--- NOTE | 2023-11-26 14:05 | RAD_ITS ---
STUDY: X-RAY CHEST REASON FOR EXAM: Female, 63 years old. Weakness. TECHNIQUE: Single frontal view of the chest. COMPARISON: July 18, 2022 FINDINGS: Removal of the left internal jugular triple-lumen catheter since the prior study. Stable mild hyperinflation. There is no demonstrated pleural abnormality. Borderline cardiomegaly unchanged. Normal mediastinum and emily. Normal visualized pulmonary arteries. Stable aortic tortuosity. No abnormality of the visualized soft tissue structures of the upper abdomen. RAD/Chest 1 View (Portable) IMPRESSION: Removal of internal jugular catheter. Stable borderline cardiomegaly with hyperinflation and no acute or active cardiopulmonary disease. Electronically Signed: Rai Carbajal MD at 14:14 EDT ,
[2023-11-26 14:11] LABS: Hematocrit 34.5 % (37-47); Mean Corp Hgb Conc 31.9 g/dL (32-36); Mean Corpuscular Hgb 29.4 pg (27.0-32.0); Mean Corpuscular Volume 92.2 fL (81-99); Mean Platelet Vol. 11.4 fl (6.2-12.0); Platelet Count 264 K/mm3 (150-450); RBC Distribution Width SD 50.5 fl (35.1-43.9); Red Blood Count 3.74 M/mm3 (4.2-5.4); White Blood Count 10.4 K/mm3 (4.4-11.0)
[2023-11-26 14:35] LABS: Anion Gap 12 (5-15); BUN 34 mg/dL (7-18); BUN/Creat Ratio 7.6 RATIO (10-20); Calcium,Total 9.2 mg/dL (8.5-10.1); Chloride 95 mmol/L (98-107); EST Glomerular Filtration Rate 11 mL/min (>60); Est Glom Filt Rate - Afr Amer 13 mL/min (>60); Glucose 212 mg/dL (74-106); Potassium 4.3 mmol/L (3.5-5.1); Sodium Level 135 mmol/L (136-145)
[2023-11-26 14:41] VITALS: BP 148/61; PULSE 80; RESP 19; O2SAT 100
[2023-11-26 14:58] VITALS: BP 129/54; PULSE 78; RESP 15; TEMP 36.6; O2SAT 100
--- NOTE | 2023-11-26 15:05 | ED.RN ---
offered to help pt get dressed, offered assistance in getting out of bed, pt politely declined.
== END 2023-11-26 15:17 | disposition home or self-care (01) ==
PROVIDERS: Emergency Provider Emergency Medicine; PCP Family Medicine; Visit Provider Emergency Medicine
DX: R53.1 Weakness (principal); I12.0 Hypertensive chronic kidney disease with stage 5 chronic kidney disease or end stage renal disease; N18.6 End stage renal disease; Z79.4 Long term (current) use of insulin; E11.22 Type 2 diabetes mellitus with diabetic chronic kidney disease; R21 Rash and other nonspecific skin eruption; Z99.2 Dependence on renal dialysis; E78.00 Pure hypercholesterolemia, unspecified; E87.8 Other disorders of electrolyte and fluid balance, not elsewhere classified; Z79.82 Long term (current) use of aspirin; Z79.899 Other long term (current) drug therapy; F32.A Depression, unspecified; Z79.02 Long term (current) use of antithrombotics/antiplatelets; Z90.49 Acquired absence of other specified parts of digestive tract
CPT/HCPCS: 71045; 80048; 85027; 93005; 99283

== ENCOUNTER → 2024-01-20 | Outpatient (CLI) | payer MEDICARE, MEDICAID, SELFPAY ==
--- NOTE | 2024-01-20 09:31 | AVDS_ITS ---
Reason For Study: Intermittent prolonged bleeding after decannulation LEFT Inflow, 414.3/177.2 cm/sec. Inflow, 750.3 ml/min. Prox anastamosis, 611.3/339.3 cm/sec. Prox anastamosis, 1276 ml/min. Prox graft, 128.7/62.9 cm/sec. Prox graft, 926.4 ml/min. Mid graft, 61.1/24.9 cm/sec. Mid graft, 686.2 ml/min. Distal graft, 91.9/33.7 cm/sec. Distal graft, 1203 ml/min. Outflow, Basilic, 82/48 cm/sec. Outflow, Basilic, 573.8 ml/min. Outflow, Cephalic, 40.3/20.5 cm/sec. Outflow, Cephalic, 100.8 ml/min. VL/AV Fistula/Dialysis Graft Scan Interpretation Summary Patent left radio-cephalic fistula with normal velocities and no evidence of st enosis. Adequate flow volumes. Ordering Physician: Brenda Galo Referring Physician: Dennys Serrano Performed By: Jennifer Khanna RVT
== END | disposition home or self-care (01) ==
LOC: CVS 09:26
PROVIDERS: PCP Family Medicine; Referring Provider Physician Assistant; Visit Provider Physician Assistant
DX: T82.898A Other specified complication of vascular prosthetic devices, implants and grafts, initial encounter (principal)
CPT/HCPCS: 93990

== ENCOUNTER 2024-03-24 09:30 | Outpatient (RCR) | payer MEDICARE, MEDICAID, SELFPAY ==
[2024-03-11 10:03] VITALS: BP 155/83; PULSE 92; RESP 16; TEMP 36.2; BMI 26.0
--- NOTE | 2024-03-11 12:34 | PCM.WC.PN ---
History of Present Illness Date of Service: 03/11/24 Chief Complaint: Bilateral leg skin breakdown left greater than right. History of Wound: A 62-year-old female who presents to the wound care center today for left heel ulceration and bilateral lower extremity edema with multiple leg wounds secondary to previous blisters. In October 2019, patient had rubbing in shoes while shopping which led to a blister that developed into an ulceration. Patient was then seen by Dewey Amezquita.P.M. for wound care. Patient then became infected and was admitted to the hospital. Patient was noted to have OM on MRI. Patient wanted to avoid surgery so a custodial course of appropriate IV antibiotics was the treatment chosen. Patient was also noted to have hyperglycemia and has worked with hospitalist and PCP to try to get better control. Blood sugar levels remain elevated. Patient also had LEAS obtained in the hospital which suggested patient had the proper blood flow to allow healing. Patient has since finished termite treater course of antibiotics. Patient has since been seen on a weekly basis in office with progression and regression of wound noted over the weeks. Patient has tried various dressing options including wet to dry and santyl. The most progress was noted with Santyl but patient ran out and was unable to refill due to insurance issues. During which time the wound regressed. She also has an offloading surgical shoe and offloading boot to relieve pressure. Patient care is henceforth being carried out at the wound care center. Patient not currently on any antibiotics. Patient has since began skin graft aplications significant improvement is been noted to her foot overall. Patient has finished epifix graft applications with some very small remaining wound noted to left heel. Patient has new wounds noted to bilateral third digits. The right 3rd digit wound has healed. Her left ankle ulcer remains healed Patient relates that ambulation is getting easier and she is rebuilding her strength slowly. She has not had any worsening of minor remaining heel wound since beginning ambulation again. 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 Her has been helping her change the dressings daily to the left heel. She had been following in the wound care center in 2021 for left heel ulceration but was subsequently lost to follow-up. She cites transportation issues. She presents to the wound care center today for continued care of her left heel ulceration and bilateral lower extremity wounds secondary to edema. Progress of Wound: Ms. Winkler is a 63-year-old female presenting to wound care center today for follow-up evaluation of bilateral skin breakdown left greater than right. Patient states that she was using compression stockings for some time but was seen in the private office for dianeticist who recommended Tubigrip and was dispensed to her. She states that her wound has improved after using the compression stockings and was referred to the wound care center for further evaluation. She does admit that she only has 1 heater in her house and is not very compliant with her compression wraps. She denies trauma. Denies constitutional symptoms. No other pedal complaints at this time. Subjective Subjective Ms Sprague is a 63-year-old female presenting to clinic today with a chief complaint of full-thickness wound to the left leg greater than right. Patient has not been compliant with her dressing changes. She is seen in her podiatry's office and referred to wound care center for further evaluation. She was dispensed Tubigrip send been wearing them and noticed improvement to her legs. She states that she only has 1 room with heat and is using a portable heater to keep her home warm. She denies trauma. Denies constitutional symptoms. No other pedal complaints at this time. Objective Data Objective Data Vital Signs: Vital Signs Temp Pulse Resp BP 97.1 F L 92 16 155/83 H 03/11/24 10:03 03/11/24 10:03 03/11/24 10:03 03/11/24 10:03 Weight: 71 kg Body Mass Index (BMI) 26.0 Physical Exam Narrative Vascular: DP and PT pulses are palpable. CFT is brisk. Nonpitting edema appreciated to bilateral lower extremity. Skin temp great is warm to warm from proximal ankles to distal digits. Neurological: Light touch and epicritic station is intact. Dermatological: Breakdown of skin appreciated to the left lower extremity. No sign of infection. Evidence of sanguinous crust to the left second, third and fourth digits. Evidence of sanguinous crust appreciated to the right second digit. No sign of infection. Musculoskeletal: Muscle strength is 5 and 5 in all quadrants bilateral. Mild pain on palpation to the left leg at the level of the breakdown of skin. No pain with calf pressure. Debridement Note Debridement Note Post-Debridement Measurements and Additional Note: Post-Debridement Measurements/Treatment SAMARIA - Nurse 1 - General Ulcer Assessment Start: 03/11/24 09:45 Freq: Status: Active Protocol: MOOK Activity Type Activity Date Activity User E-sign Co-sign Detail Recorded Client Recorded Date Recorded By Document 03/11/24 10:03 SUNDEEP [id number] 03/11/24 10:24 SUNDEEP 03/11/24 10:03 WC - Today's Visit Information Type of service Initial Visit Arrival Mode Ambulatory Transfer Assistance None Patient Identification Verified (Name & Yes ) Patient Requires Transmission-Based No Precautions Safety Precautions NA Height and Weight Height 5 ft 5 in Weight 71 kg Weight in Pounds 156.5 lbs Weight Measurement Method Standing Scale Body Mass Index (BMI) 26.0 BMI Classification Overweight BSA - Alisia 1.78 Vital Signs Temperature (97.8 F-99.1 F) 97.1 F L Temperature Source Temporal Pulse Rate (60-100) 92 Pulse Location Monitor Respiratory Rate (12-18) 16 Respiratory rate source Observation Blood Pressure (90/60-120/80) 155/83 H Blood Pressure Mean (mm Hg) 107 Source Monitor Position Sitting Blood Pressure Location Right Arm History Since Last Visit- (Skip if this is Patient's initial visit) Left Footwear No Footwear Right Footwear No Footwear Pain Scale: 0-10 Numeric Is Patient Pain Free? No Lower Extremity Assessment/ Foot Assessment/ Toe Nail Assessment Right -Dorsalis Pedis Palpable No -Dorsalis Pedis Doppler Monophasic -Extremity Color Normal -Hair Growth on Legs No -Hair Growth on Toes No -Temperature of Extremity Cold -Capillary Refill Less than 3 Seconds -Dependent Rubor No -Blanched when Elevated No -Lipodermatosclerosis No -Thick Yes -Discolored Yes -Deformed Yes -Improper Length & Hygeine Yes Left -Dorsalis Pedis Palpable No -Dorsalis Pedis Doppler Monophasic -Extremity Color Hemosiderin -Hair Growth on Legs No -Hair Growth on Toes No -Temperature of Extremity Cold -Capillary Refill Less than 3 Seconds -Dependent Rubor No -Blanched when Elevated No -Lipodermatosclerosis No -Thick Yes -Discolored Yes -Deformed Yes -Improper Length & Hygeine Yes Communication Assessment Preferred language Luxembourgish Able to Read Yes Able to Write Yes Communication Tools None Caregiver Communication Skills No Impairment Impairment Right Hearing Abillity Normal Left Hearing Abillity Normal Visual Assistive Devices Glasses Teaching Assessment Preferences Verbal,Written, Demonstration Barriers to Learning Knowledge Deficit,Low Literacy Readiness To Learn Good Willingness to Engage in Self Management High Activies Readiness to Engage in Self Management High Activities Anxiety Level Calm Cooperation Cooperative Perception Coherent Interest in Health Problem Asks Questions Education Importance Acknowledges Need Does Patient Smoke tobacco or other No substances Smoking Status Never smoker Is Patient Diabetic Yes 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 Textile Slitting Machine Operator to contact place of restorationism No Teaching: Wound Center Compression Wraps & Stockings -Person Taught Patient -Teaching Method Discussion -Response to teaching Verbalize Understanding - Nurse 1 - General Ulcer Measurement Start: 03/11/24 09:45 Freq: Status: Active Protocol: Activity Type Activity Date Activity User E-sign Co-sign Detail Recorded Client Recorded Date Recorded By Document 03/11/24 10:03 SUNDEEP [id number] 03/11/24 10:24 03/11/24 10:03 Wound Center Nurse 1 Right Calf (cm) 34 Right Ankle (cm) 24.5 Left Calf (cm) 37 Left Ankle (cm) 22.5 - Nurse 2 - General Ulcer CM Notes Start: 03/11/24 09:45 Freq: Status: Active Protocol: Activity Type Activity Date Activity User E-sign Co-sign Detail Recorded Client Recorded Date Recorded By Document 03/11/24 10:49 JAUN [id number] 03/11/24 10:51 03/11/24 10:49 Wound Center Nurse 2 23-left lateral leg -Time 10:50 -Correct Patient Yes -Correct Side, Site, Position Yes -Correct Procedure Yes -Procedure Performed Yes -Type of Procedure Debridement -Clinical Debridement Epidermis / Dermis -Tissue Removed Epidermis -Post Debridement (cm) - Length 0.1 -Post Debridement (cm) - Width 0.1 -Post Debridement (cm) - Depth 0.1 -Total Square (Post) (cm) 0.01 -Area of Debridement (cm) - Length 0.1 -Area of Debridement (cm) - Width 0.1 -Total Square (Area) (cm) 0.01 -Tunneling No -Undermining/Tunneling No -Circular Undermining No -Wound/Ulcer Outcome Not Healed -Ulcer Cleansing Rinsed/ Irrigated with Saline -Foul Odor after Cleansing No -Bioengineered Tissue No -Bleeding Controlled with Pressure -Treatment Response Procedure Tolerated Well -Offloading No -Debridement - Open, 1st 20sq cm Yes Pain Scale: 0-10 Numeric Is Patient Pain Free? Yes - Nurse 3 - General Ulcer D/C NN Start: 03/11/24 09:45 Freq: Status: Active Protocol: Activity Type Activity Date Activity User E-sign Co-sign Detail Recorded Client Recorded Date Recorded By Document 03/11/24 11:01 CP [id number] 03/11/24 11:02 CP 03/11/24 11:01 Wound Care Center Nurse 3 Right -Lotion applied to leg before Yes compression wrap -Multi-Layered Wrap Application Multi-Layer Comp - Right ($ ) Left -Multi-Layered Wrap Application Multi-Layer Comp - Left ($) Pain Scale: 0-10 Numeric Is Patient Pain Free? Yes WC - Visit Discharge Discharge Condition Stable Ambulatory Status Ambulatory, Walker Transportation Private Auto Medication Reconcilliation completed & Yes provided to patient/care provider Clinical Summary of Care Provided Yes Assessment/Plan Assessment/Plan (1) Non-pressure chronic ulcer of other part of left lower leg limited to breakdown of skin: CODE(S): L97.821 - Non-pressure chronic ulcer of other part of left lower leg limited to breakdown of skin PLAN: Patient was examined and evaluated. All findings were discussed with the patient. All questions were answered to the patient's satisfaction. The patient's bilateral extremities were cleaned and patted dry. Adaptic was applied to the breakdown of skin on the left leg followed by superabsorber and a bilateral 3M wraps were applied to the bilateral lower extremity. Patient will leave them on clean dry and intact. She will show for nursing visit. Was educated to the patient that she will need to call some type of service to discuss with her landlord regarding the need for her furnace to be fixed so that she may have heat throughout her living space. She was understanding of this. Follow-up at the wound care center with Dr. Solano in 1 week. (2) Peripheral vascular disease: CODE(S): I73.9 - Peripheral vascular disease, unspecified
[2024-03-18 10:23] VITALS: BP 125/62; PULSE 95; RESP 18; TEMP 36; BMI 26.0
--- NOTE | 2024-03-18 11:37 | PCM.WC.PN ---
History of Present Illness Date of Service: 03/18/24 Chief Complaint: Bilateral leg skin breakdown left greater than right. History of Wound: A 62-year-old female who presents to the wound care center today for left heel ulceration and bilateral lower extremity edema with multiple leg wounds secondary to previous blisters. In October 2019, patient had rubbing in shoes while shopping which led to a blister that developed into an ulceration. Patient was then seen by Dewey Amezquita.P.M. for wound care. Patient then became infected and was admitted to the hospital. Patient was noted to have OM on MRI. Patient wanted to avoid surgery so a long-term course of appropriate IV antibiotics was the treatment chosen. Patient was also noted to have hyperglycemia and has worked with hospitalist and PCP to try to get better control. Blood sugar levels remain elevated. Patient also had LEAS obtained in the hospital which suggested patient had the proper blood flow to allow healing. Patient has since finished terminal make up operator course of antibiotics. Patient has since been seen on a weekly basis in office with progression and regression of wound noted over the weeks. Patient has tried various dressing options including wet to dry and santyl. The most progress was noted with Santyl but patient ran out and was unable to refill due to insurance issues. During which time the wound regressed. She also has an offloading surgical shoe and offloading boot to relieve pressure. Patient care is henceforth being carried out at the wound care center. Patient not currently on any antibiotics. Patient has since began skin graft aplications significant improvement is been noted to her foot overall. Patient has finished epifix graft applications with some very small remaining wound noted to left heel. Patient has new wounds noted to bilateral third digits. The right 3rd digit wound has healed. Her left ankle ulcer remains healed Patient relates that ambulation is getting easier and she is rebuilding her strength slowly. She has not had any worsening of minor remaining heel wound since beginning ambulation again. 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 Her has been helping her change the dressings daily to the left heel. She had been following in the wound care center in 2021 for left heel ulceration but was subsequently lost to follow-up. She cites transportation issues. She presents to the wound care center today for continued care of her left heel ulceration and bilateral lower extremity wounds secondary to edema. Progress of Wound: Ms. Winkler is a 63-year-old female presenting to wound care center today for follow-up evaluation of bilateral skin breakdown left greater than right. Patient states that she was using compression stockings for some time but was seen in the private office for drafter apprentice who recommended Tubigrip and was dispensed to her. She states that her wound has improved after using the compression stockings and was referred to the wound care center for further evaluation. She does admit that she only has 1 heater in her house and is not very compliant with her compression wraps. She denies trauma. Denies constitutional symptoms. No other pedal complaints at this time. Subjective Subjective Ms. Sprague is a 63-year-old female presenting with concern today follow-up evaluation of full-thickness wound to the left leg. She has been compliant with her multilayer compression bandage. She denies any strikethrough or drainage. Denies trauma. Denies constitutional symptoms. No other pedal complaints at this time. Objective Data Objective Data Vital Signs: Vital Signs Temp Pulse Resp BP 96.8 F L 95 18 125/62 H 03/18/24 10:23 03/18/24 10:23 03/18/24 10:23 03/18/24 10:23 Weight: 71 kg Body Mass Index (BMI) 26.0 Physical Exam Narrative Vascular: DP and PT pulses are palpable. CFT is brisk. Nonpitting edema appreciated to bilateral lower extremity. Skin temp great is warm to warm from proximal ankles to distal digits. Neurological: Light touch and epicritic station is intact. Dermatological: Patient's left leg wound is now healed. There is no sign of infection. Hemosiderin deposit appreciated bilateral lower extremity. Musculoskeletal: Muscle strength is 5 and 5 in all quadrants bilateral. No pain to left leg. No pain with calf pressure. Debridement Note Debridement Note Post-Debridement Measurements and Additional Note: Post-Debridement Measurements/Treatment WC - Nurse 1 - General Ulcer Assessment Start: 03/11/24 09:45 Freq: Status: Active Protocol: [email or web address].LOWEXT Activity Type Activity Date Activity User E-sign Co-sign Detail Recorded Client Recorded Date Recorded By Document 03/11/24 10:03 CP [id number] 03/11/24 10:24 CP Document 03/18/24 10:23 RB [id number] 03/18/24 10:25 RB 03/11/24 03/18/24 10:03 10:23 WC - Today's Visit Information Type of service Initial Visit Follow-up Visit (Physician/TARGETEER ) Arrival Mode Ambulatory Ambulatory, Walker Transfer Assistance None None Patient Identification Verified (Name & Yes Yes ) Patient Requires Transmission-Based No No Precautions Safety Precautions NA Height and Weight Height 5 ft 5 in Weight 71 kg Weight in Pounds 156.5 lbs Weight Measurement Method Standing Scale Body Mass Index (BMI) 26.0 26.0 BMI Classification Overweight Overweight BSA - Alisia 1.78 Vital Signs Temperature (97.8 F-99.1 F) 97.1 F L 96.8 F L Temperature Source Temporal Temporal Pulse Rate (60-100) 92 95 Pulse Location Monitor Monitor Respiratory Rate (12-18) 16 18 Respiratory rate source Observation Observation Blood Pressure (90/60-120/80) 155/83 H 125/62 H Blood Pressure Mean (mm Hg) 107 83 Source Monitor Monitor Position Sitting Sitting Blood Pressure Location Right Arm Right Arm History Since Last Visit- (Skip if this is Patient's initial visit) Have you changed medications since your No last visit? Any new allergies or adverse reactions No Had a fall/change in ADL's that may No increase risk of falls Signs or symptoms of abuse and/or No neglect since last visit Have you been in the hospital since your No last visit? Has dressing in place as prescribed Yes Has compression in place as prescribed No Has offloadiing in place as prescribed No Experienced any changes in pain level or No management Left Footwear No Footwear Right Footwear No Footwear Pain Scale: 0-10 Numeric Is Patient Pain Free? No Yes Lower Extremity Assessment/ Foot Assessment/ Toe Nail Assessment Right -Dorsalis Pedis Palpable No -Dorsalis Pedis Doppler Monophasic -Extremity Color Normal -Hair Growth on Legs No -Hair Growth on Toes No -Temperature of Extremity Cold -Capillary Refill Less than 3 Seconds -Dependent Rubor No -Blanched when Elevated No -Lipodermatosclerosis No -Thick Yes -Discolored Yes -Deformed Yes -Improper Length & Hygeine Yes Left -Dorsalis Pedis Palpable No -Dorsalis Pedis Doppler Monophasic -Extremity Color Hemosiderin -Hair Growth on Legs No -Hair Growth on Toes No -Temperature of Extremity Cold -Capillary Refill Less than 3 Seconds -Dependent Rubor No -Blanched when Elevated No -Lipodermatosclerosis No -Thick Yes -Discolored Yes -Deformed Yes -Improper Length & Hygeine Yes Communication Assessment Preferred language Vietnamese Able to Read Yes Able to Write Yes Communication Tools None Caregiver Communication Skills No Impairment Impairment Right Hearing Abillity Normal Left Hearing Abillity Normal Visual Assistive Devices Glasses Teaching Assessment Preferences Verbal,Written, Demonstration Barriers to Learning Knowledge Deficit,Low Literacy Readiness To Learn Good Willingness to Engage in Self Management High Activies Readiness to Engage in Self Management High Activities Anxiety Level Calm Cooperation Cooperative Perception Coherent Interest in Health Problem Asks Questions Education Importance Acknowledges Need Does Patient Smoke tobacco or other No substances Smoking Status Never smoker Is Patient Diabetic Yes Culture/Congregational/Stamp Pad Finisher Cultural/Congregational Needs that may affect No Treatment Plan Would you allow our hospital supervisor gear repair to No meet you for the purpose of spiritual/ emotional support? Stamp Pad Finisher to contact place of buddhist No Teaching: Wound Center Compression Wraps & Stockings -Person Taught Patient -Teaching Method Discussion -Response to teaching Verbalize Understanding - Nurse 1 - General Ulcer Measurement Start: 03/11/24 09:45 Freq: Status: Active Protocol: Activity Type Activity Date Activity User E-sign Co-sign Detail Recorded Client Recorded Date Recorded By Document 03/11/24 10:03 CP [id number] 03/11/24 10:24 Document 03/18/24 10:23 RB [id number] 03/18/24 10:25 RB 03/11/24 03/18/24 10:03 10:23 Wound Center Nurse 1 23-left lateral leg -Combined with other wound No -Current Size (cm) - Length 0.1 -Current Size (cm) - Width 0.1 -Current Size (cm) - Depth 0.1 -Total Square Cm 0.01 -Epithelialization Large 67-100% Lower Limb Edema Present Yes Right Calf (cm) 34 34.2 Right Ankle (cm) 24.5 22.5 Left Calf (cm) 37 35.8 Left Ankle (cm) 22.5 21.5 SAMARIA - Nurse 2 - General Ulcer CM Notes Start: 03/11/24 09:45 Freq: Status: Active Protocol: Activity Type Activity Date Activity User E-sign Co-sign Detail Recorded Client Recorded Date Recorded By Document 03/11/24 10:49 [id number] 03/11/24 10:51 Document 03/18/24 10:36 [id number] 03/18/24 10:37 03/11/24 03/18/24 10:49 10:36 Wound Center Nurse 2 23-left lateral leg -Time 10:50 -Correct Patient Yes No -Correct Side, Site, Position Yes No -Correct Procedure Yes No -Procedure Performed Yes No -Type of Procedure Debridement -Clinical Debridement Epidermis / Dermis -Tissue Removed Epidermis -Post Debridement (cm) - Length 0.1 0 -Post Debridement (cm) - Width 0.1 0 -Post Debridement (cm) - Depth 0.1 0 -Total Square (Post) (cm) 0.01 0 -Area of Debridement (cm) - Length 0.1 0 -Area of Debridement (cm) - Width 0.1 0 -Total Square (Area) (cm) 0.01 0 -Tunneling No -Undermining/Tunneling No -Circular Undermining No -Wound/Ulcer Outcome Not Healed Healed- Epithelialized -Ulcer Cleansing Rinsed/ Irrigated with Saline -Foul Odor after Cleansing No -Bioengineered Tissue No -Bleeding Controlled with Pressure -Treatment Response Procedure Tolerated Well -Offloading No -Debridement - Open, 1st 20sq cm Yes Pain Scale: 0-10 Numeric Is Patient Pain Free? Yes Yes WC - Nurse 3 - General Ulcer D/C NN Start: 03/11/24 09:45 Freq: Status: Active Protocol: Activity Type Activity Date Activity User E-sign Co-sign Detail Recorded Client Recorded Date Recorded By Document 03/11/24 11:01 CP [id number] 03/11/24 11:02 CP Edit Result 03/11/24 11:01 CP (1) [id number] 03/12/24 11:29 DS Document 03/18/24 10:40 KW [id number] 03/18/24 10:48 KW (1) Right - Multi-Layered Wrap Application Multi-Layer Comp - => Multi-Layer Comp - Right ($) => Bilat ($) Left - Multi-Layered Wrap Application Multi-Layer Comp - => Left ($) => 03/11/24 03/18/24 11:01 10:40 Wound Care Center Nurse 3 Right -Lotion applied to leg before Yes compression wrap -Multi-Layered Wrap Application Multi-Layer Multi-Layer Comp - Bilat ($ Comp - Right ($ ) ) -Other padding to ant ankle Left -Multi-Layered Wrap Application Multi-Layer Comp - Left ($) -Other padding to ant ankle Treatment Response Procedure Tolerated Well Pain Scale: 0-10 Numeric Is Patient Pain Free? Yes Yes WC - Visit Discharge Discharge Condition Stable Stable Ambulatory Status Ambulatory, Walker Walker Transportation Private [facility] Trans Medication Reconcilliation completed & Yes provided to patient/care provider Clinical Summary of Care Provided Yes Assessment/Plan Assessment/Plan (1) Non-pressure chronic ulcer of other part of left lower leg limited to breakdown of skin: CODE(S): L97.821 - Non-pressure chronic ulcer of other part of left lower leg limited to breakdown of skin PLAN: Patient was examined and evaluated. All findings were discussed with the patient. All questions were answered to the patient's satisfaction. Patient's left lower extremity breakdown the skin is now healed. Patient will be placed in bilateral 3M wraps and she will leave them clean dry and intact. The patient will follow-up in 1 week for a nursing visit and to have her compression stockings donned. Follow-up at the wound care center with Dr. Solano as needed. (2) Peripheral vascular disease: CODE(S): I73.9 - Peripheral vascular disease, unspecified
[2024-03-24 09:16] VITALS: BP 135/91; PULSE 102; RESP 18; TEMP 35.8; BMI 26.0
--- NOTE | 2024-03-24 09:46 | PCM.WC.PN ---
History of Present Illness Date of Service: 03/24/24 Chief Complaint: Bilateral leg skin breakdown left greater than right. History of Wound: A 62-year-old female who presents to the wound care center today for left heel ulceration and bilateral lower extremity edema with multiple leg wounds secondary to previous blisters. In October 2019, patient had rubbing in shoes while shopping which led to a blister that developed into an ulceration. Patient was then seen by Dewey Amezquita.P.M. for wound care. Patient then became infected and was admitted to the hospital. Patient was noted to have OM on MRI. Patient wanted to avoid surgery so a prison course of appropriate IV antibiotics was the treatment chosen. Patient was also noted to have hyperglycemia and has worked with hospitalist and PCP to try to get better control. Blood sugar levels remain elevated. Patient also had LEAS obtained in the hospital which suggested patient had the proper blood flow to allow healing. Patient has since finished buttermaker course of antibiotics. Patient has since been seen on a weekly basis in office with progression and regression of wound noted over the weeks. Patient has tried various dressing options including wet to dry and santyl. The most progress was noted with Santyl but patient ran out and was unable to refill due to insurance issues. During which time the wound regressed. She also has an offloading surgical shoe and offloading boot to relieve pressure. Patient care is henceforth being carried out at the wound care center. Patient not currently on any antibiotics. Patient has since began skin graft aplications significant improvement is been noted to her foot overall. Patient has finished epifix graft applications with some very small remaining wound noted to left heel. Patient has new wounds noted to bilateral third digits. The right 3rd digit wound has healed. Her left ankle ulcer remains healed Patient relates that ambulation is getting easier and she is rebuilding her strength slowly. She has not had any worsening of minor remaining heel wound since beginning ambulation again. 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 Her has been helping her change the dressings daily to the left heel. She had been following in the wound care center in 2021 for left heel ulceration but was subsequently lost to follow-up. She cites transportation issues. She presents to the wound care center today for continued care of her left heel ulceration and bilateral lower extremity wounds secondary to edema. Progress of Wound: Ms. Winkler is a 63-year-old female presenting to wound care center today for follow-up evaluation of bilateral skin breakdown left greater than right. Patient states that she was using compression stockings for some time but was seen in the private office for resin remover who recommended Tubigrip and was dispensed to her. She states that her wound has improved after using the compression stockings and was referred to the wound care center for further evaluation. She does admit that she only has 1 heater in her house and is not very compliant with her compression wraps. She denies trauma. Denies constitutional symptoms. No other pedal complaints at this time. Subjective Subjective Ms. Whitney is a 63-year-old female presented wound care center today follow-up evaluation of bilateral leg swelling and full-thickness wound to left leg. She has been compliant with her dressings and left them clean dry and intact. She also has her compression stockings with her today. She denies trauma. Denies any new wounds. Denies constitutional symptoms. No other pedal complaints at this time. Objective Data Objective Data Vital Signs: Vital Signs Temp Pulse Resp BP 96.5 F L 102 H 18 135/91 H 03/24/24 09:16 03/24/24 09:16 03/24/24 09:16 03/24/24 09:16 Weight: 71 kg Body Mass Index (BMI) 26.0 Physical Exam Narrative Vascular: DP and PT pulses are palpable. CFT is brisk. Nonpitting edema appreciated to bilateral lower extremity. Skin temp great is warm to warm from proximal ankles to distal digits. Neurological: Light touch and epicritic station is intact. Dermatological: Patient's left leg wound is now healed. There is no sign of infection. Hemosiderin deposit appreciated bilateral lower extremity. Musculoskeletal: Muscle strength is 5 and 5 in all quadrants bilateral. No pain to left leg. No pain with calf pressure. Debridement Note Debridement Note Post-Debridement Measurements and Additional Note: Post-Debridement Measurements/Treatment WC - Nurse 1 - General Ulcer Assessment Start: 03/11/24 09:45 Freq: Status: Active Protocol: [email or web address].LOWEXT Activity Type Activity Date Activity User E-sign Co-sign Detail Recorded Client Recorded Date Recorded By Document 12/11/24 10:03 CP [id number] 03/11/24 10:24 CP Document 03/18/24 10:23 RB [id number] 03/18/24 10:25 RB Document 03/24/24 09:16 DL [id number] 03/24/24 09:23 DL 03/11/24 03/18/24 03/24/24 10:03 10:23 09:16 WC - Today's Visit Information Type of service Initial Visit Follow-up Visit Follow-up Visit (Physician/ACCOUNTS RECEIVABLE REPRESENTATIVE (Physician/ACCOUNTS RECEIVABLE REPRESENTATIVE ) ) Arrival Mode Ambulatory Ambulatory, Ambulatory, Walker Walker Transfer Assistance None None None Patient Identification Verified (Name & Yes Yes Yes ) Patient Requires Transmission-Based No No No Precautions Safety Precautions NA Height and Weight Height 5 ft 5 in Weight 71 kg Weight in Pounds 156.5 lbs Weight Measurement Method Standing Scale Body Mass Index (BMI) 26.0 26.0 26.0 BMI Classification Overweight Overweight Overweight BSA - Alisia 1.78 Vital Signs Temperature (97.8 F-99.1 F) 97.1 F L 96.8 F L 96.5 F L Temperature Source Temporal Temporal Temporal Pulse Rate (60-100) 92 95 102 H Pulse Location Monitor Monitor Monitor Respiratory Rate (12-18) 16 18 18 Respiratory rate source Observation Observation Observation Blood Pressure (90/60-120/80) 155/83 H 125/62 H 135/91 H Blood Pressure Mean (mm Hg) 107 83 105 Source Monitor Monitor Monitor Position Sitting Sitting Blood Pressure Location Right Arm Right Arm History Since Last Visit- (Skip if this is Patient's initial visit) Have you changed medications since your No No last visit? Any new allergies or adverse reactions No No Had a fall/change in ADL's that may No No increase risk of falls Signs or symptoms of abuse and/or No No neglect since last visit Have you been in the hospital since your No No last visit? Has dressing in place as prescribed Yes Yes Has compression in place as prescribed No Yes Has offloadiing in place as prescribed No N/A Experienced any changes in pain level or No No management Left Footwear No Footwear Surgical Shoe with pressure relief insole Right Footwear No Footwear Surgical Shoe with pressure relief insole Pain Scale: 0-10 Numeric Is Patient Pain Free? No Yes Yes Lower Extremity Assessment/ Foot Assessment/ Toe Nail Assessment Right -Dorsalis Pedis Palpable No -Dorsalis Pedis Doppler Monophasic -Extremity Color Normal -Hair Growth on Legs No -Hair Growth on Toes No -Temperature of Extremity Cold -Capillary Refill Less than 3 Seconds -Dependent Rubor No -Blanched when Elevated No -Lipodermatosclerosis No -Thick Yes -Discolored Yes -Deformed Yes -Improper Length & Hygeine Yes Left -Dorsalis Pedis Palpable No -Dorsalis Pedis Doppler Monophasic -Extremity Color Hemosiderin -Hair Growth on Legs No -Hair Growth on Toes No -Temperature of Extremity Cold -Capillary Refill Less than 3 Seconds -Dependent Rubor No -Blanched when Elevated No -Lipodermatosclerosis No -Thick Yes -Discolored Yes -Deformed Yes -Improper Length & Hygeine Yes Communication Assessment Preferred language Romansh Able to Read Yes Able to Write Yes Communication Tools None Caregiver Communication Skills No Impairment Impairment Right Hearing Abillity Normal Left Hearing Abillity Normal Visual Assistive Devices Glasses Teaching Assessment Preferences Verbal,Written, Demonstration Barriers to Learning Knowledge Deficit,Low Literacy Readiness To Learn Good Willingness to Engage in Self Management High Activies Readiness to Engage in Self Management High Activities Anxiety Level Calm Cooperation Cooperative Perception Coherent Interest in Health Problem Asks Questions Education Importance Acknowledges Need Does Patient Smoke tobacco or other No substances Smoking Status Never smoker Is Patient Diabetic Yes Culture/Jewish/Lead Accountant Cultural/Jewish Needs that may affect No Treatment Plan Would you allow our 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 Lead Accountant to contact place of pentecostalism No Teaching: Wound Center Compression Wraps & Stockings -Person Taught Patient -Teaching Method Discussion -Response to teaching Verbalize Understanding WC - Nurse 1 - General Ulcer Measurement Start: 03/11/24 09:45 Freq: Status: Active Protocol: Activity Type Activity Date Activity User E-sign Co-sign Detail Recorded Client Recorded Date Recorded By Document 03/11/24 10:03 CP [id number] 03/11/24 10:24 CP Document 03/18/24 10:23 RB [id number] 03/18/24 10:25 RB Document 03/24/24 09:16 DL [id number] 03/24/24 09:23 DL 03/11/24 03/18/24 03/24/24 10:03 10:23 09:16 Wound Center Nurse 1 23-left lateral leg -Combined with other wound No -Current Size (cm) - Length 0.1 -Current Size (cm) - Width 0.1 -Current Size (cm) - Depth 0.1 -Total Square Cm 0.01 -Epithelialization Large 67-100% Lower Limb Edema Present Yes Right Calf (cm) 34 34.2 34.2 Right Ankle (cm) 24.5 22.5 22.5 Left Calf (cm) 37 35.8 35 Left Ankle (cm) 22.5 21.5 21.5 - Nurse 2 - General Ulcer CM Notes Start: 03/11/24 09:45 Freq: Status: Active Protocol: Activity Type Activity Date Activity User E-sign Co-sign Detail Recorded Client Recorded Date Recorded By Document 03/11/24 10:49 [id number] 03/11/24 10:51 Document 03/18/24 10:36 [id number] 03/18/24 10:37 Document 03/24/24 09:33 [id number] 03/24/24 09:33 03/11/24 03/18/24 03/24/24 10:49 10:36 09:33 Wound Center Nurse 2 23-left lateral leg -Time 10:50 -Correct Patient Yes No -Correct Side, Site, Position Yes No -Correct Procedure Yes No -Procedure Performed Yes No -Type of Procedure Debridement -Clinical Debridement Epidermis / Dermis -Tissue Removed Epidermis -Post Debridement (cm) - Length 0.1 0 -Post Debridement (cm) - Width 0.1 0 -Post Debridement (cm) - Depth 0.1 0 -Total Square (Post) (cm) 0.01 0 -Area of Debridement (cm) - Length 0.1 0 -Area of Debridement (cm) - Width 0.1 0 -Total Square (Area) (cm) 0.01 0 -Tunneling No -Undermining/Tunneling No -Circular Undermining No -Wound/Ulcer Outcome Not Healed Healed- Epithelialized -Ulcer Cleansing Rinsed/ Irrigated with Saline -Foul Odor after Cleansing No -Bioengineered Tissue No -Bleeding Controlled with Pressure -Treatment Response Procedure Tolerated Well -Offloading No -Debridement - Open, 1st 20sq cm Yes Pain Scale: 0-10 Numeric Is Patient Pain Free? Yes Yes Yes WC - Nurse 3 - General Ulcer D/C NN Start: 03/11/24 09:45 Freq: Status: Active Protocol: Activity Type Activity Date Activity User E-sign Co-sign Detail Recorded Client Recorded Date Recorded By Document 03/11/24 11:01 CP [id number] 03/11/24 11:02 CP Edit Result 03/11/24 11:01 CP (1) [id number] 03/12/24 11:29 DS Document 03/18/24 10:40 KW [id number] 03/18/24 10:48 KW Edit Result 03/18/24 10:40 KW (2) [id number] 03/24/24 08:06 JF Document 03/24/24 09:33 JF [id number] 03/24/24 09:34 JF (1) Right - Multi-Layered Wrap Application Multi-Layer Comp - => Multi-Layer Comp - Right ($) => Bilat ($) Left - Multi-Layered Wrap Application Multi-Layer Comp - => Left ($) => (2) Right - Multi-Layered Wrap Application Multi-Layer Comp - => Multi-Layer Comp - Right ($) => Bilat ($) Left - Multi-Layered Wrap Application Multi-Layer Comp - => Left ($) => 03/11/24 03/18/24 03/24/24 11:01 10:40 09:33 Wound Care Center Nurse 3 BLE -Stockings Yes Right -Lotion applied to leg before Yes compression wrap -Multi-Layered Wrap Application Multi-Layer Multi-Layer Comp - Bilat ($ Comp - Bilat ($ ) ) -Other padding to ant ankle Left -Other padding to ant ankle Treatment Response Procedure Tolerated Well Pain Scale: 0-10 Numeric Is Patient Pain Free? Yes Yes Yes WC - Visit Discharge Discharge Condition Stable Stable Stable Ambulatory Status Ambulatory, Walker Ambulatory Walker Transportation Private Auto [facility] Private Auto Medication Reconcilliation completed & Yes Yes provided to patient/care provider Clinical Summary of Care Provided Yes Yes Assessment/Plan Assessment/Plan (1) Non-pressure chronic ulcer of other part of left lower leg limited to breakdown of skin: CODE(S): L97.821 - Non-pressure chronic ulcer of other part of left lower leg limited to breakdown of skin PLAN: Patient was examined and evaluated. All findings were discussed with the patient. All questions were answered to the patient's satisfaction. Patient's wounds to the left lower extremity now healed. The patient will be placed back in her compression stockings and educated to don these daily after she showers and applies lotion to the bilateral lower extremities which she was understanding of. Educated the patient continue to rest and elevate her legs if she feels like they are swelling. Educated the patient to reach out to her landlord regarding the heat in her apartment so it can be fixed. Otherwise the patient is cleared to discharge from the wound care center. She was pleased with her visit and will follow-up as needed. (2) Peripheral vascular disease: CODE(S): I73.9 - Peripheral vascular disease, unspecified
== END 2024-03-27 09:54 | disposition home or self-care (01) ==
LOC: WC 09:30
PROVIDERS: PCP Family Medicine; Referring Provider Student in an Organized Health Care Education/Training Program; Visit Provider Podiatrist Foot & Ankle Surgery
DX: L97.821 Non-pressure chronic ulcer of other part of left lower leg limited to breakdown of skin (principal); Z96.649 Presence of unspecified artificial hip joint; I73.9 Peripheral vascular disease, unspecified
CPT/HCPCS: 29581; 97597; 99213; G0463

== ENCOUNTER 2024-04-04 11:16 | Emergency (ER) | payer MEDICARE, MEDICAID, SELFPAY ==
[2024-04-04] VITALS (7 sets, daily range): BP systolic 127–175; BP diastolic 52–75; PULSE 78–97; RESP 16–19; TEMP 36.6; O2SAT 90–99; BMI 27.5
--- NOTE | 2024-04-04 12:15 | RAD_ITS ---
STUDY: X-RAY - PELVIS AND LEFT HIP REASON FOR EXAM: Female, 63 years old. Fall w/ left hip pain TECHNIQUE: 3 views of the pelvis and hip. COMPARISON: None. FINDINGS: There is a normal bowel gas pattern. There are atherosclerotic vascular calcifications of the pelvic arteries. Normal bilateral iliac wings, sacroiliac joints and visualized sacrum. Normal bilateral superior and inferior pubic rami. Normal pubic symphysis. Normal bilateral ischial tuberosities. Normal visualized femoral head. There is a healed left proximal femur fracture status post ORIF with screws and intramedullary rick. Normal acetabulum. Normal hip joint. RAD/Pelvis 1 or 2 Views IMPRESSION: No acute fracture. Prior left hip fracture status post ORIF. Electronically Signed: Lyle Rodriguez MD at 13:05 EST ,
--- NOTE | 2024-04-04 12:15 | RAD_ITS ---
STUDY: X-RAY - LEFT FEMUR REASON FOR STUDY: Female, 63 years old. Fall TECHNIQUE: Frontal and lateral view(s) of the femur. COMPARISON: None. FINDINGS: There is healed prior left femur fracture status post ORIF with screws and intramedullary rick. There are vascular calcifications. RAD/Femur Min 2 Views IMPRESSION: Healed prior fracture status post ORIF. No acute fracture. Electronically Signed: Lyle Rodriguez MD at 13:06 EST ,
--- NOTE | 2024-04-04 12:17 | ED.VIS.LOWEX ---
HPI History of Present Illness HPI Narrative: 63-year-old female history of orthostatic hypotension, end-stage renal disease with dialysis Saturday, and Saturday. Last dialyzed on . Close history of diabetes. She is undergoing dialysis for 2 years. Today at dialysis they are weighing her. She lost her balance and fell landing on her left buttock and hip complaining of pain. Prior left hip fracture. With repair. Denies recent illness. So if she would not follow dialysis she would not be her today. Chief Complaint: Lower Extremity Injury Informant: patient Occured/Mechanism Mechanism/Context: Yes injury and Yes blunt trauma Onset/Context/Timing Onset: Today Context: Sudden Onset Timing: Continuous Quality of Pain: Sharp Current Severity: Mild Maximum Severity: Mild Associated Symptoms Associated Symptoms: Negative for Parasthesia or Weakness Narrative Narrative: 63-year-old female end-stage renal disease dialysis. Today was at dialysis getting weight lost her balance fell landing on her left buttock and hip complaining of left hip pain. Did not hit her head. No LOC. No headache. No other injuries. Just complaining of left hip pain. Prior similar symptoms: Yes Recent Illness/Hospitalization: No PFSH PFS Medical History Colitis Proctitis Ulcer of left ankle Non-pressure chronic ulcer of other part of left foot with fat layer exposed Personal history of colonic polyps Non-pressure chronic ulcer of other part of right foot with fat layer exposed Pressure ulcer of left heel, stage 2 Pain in left foot Osteomyelitis Ulcer of left heel Severe sepsis Hypoglycemia due to insulin Stage 5 chronic kidney disease due to type 2 diabetes mellitus Long-term insulin use Walker as ambulation aid History of renal disease Difficulty chewing History of renal dialysis Accidental fall Depression Uses wheelchair Arthritis Bilateral pleural effusion CKD (chronic kidney disease) stage 4, GFR 15-29 ml/min Anemia Diabetes mellitus with hyperglycemia Transfusion of blood during current hospitalisation Symptomatic anemia Diabetes HTN (hypertension) Closed intertrochanteric fracture of left hip Wears glasses Insulin dependent diabetes mellitus Low iron Excessive bleeding High cholesterol Migraine headache Injury of head and neck Syncope Vomiting Dietary restriction Gastric reflux Non-smoker History of edema History of echocardiogram History of stress test Cardiology follow-up encounter Hx of orthostatic hypotension Chronic pain syndrome Malnutrition Essential hypertension Vertigo Migraine without aura HLD (hyperlipidemia) Post-concussion syndrome History of orthostatic hypotension Home Medications ?Medication ?Instructions ?Recorded ?Last Taken ?Type aspirin 81 mg chewable tablet 81 mg PO QHS HEART HEALTH 12/15/19 11/20/22 History atorvastatin 40 mg tablet 40 mg PO QHS CHOLESTEROL 12/15/19 11/19/22 History insulin lispro 100 unit/mL 8 unit subcut TIDCM diabetes 01/06/22 03/13/23 History subcutaneous pen (Humalog KwikPen (U-100) Insulin) sertraline 50 mg tablet 50 mg PO QHS DEPRESSION 01/06/22 11/20/22 History polyethylene glycol 3350 17 gram 17 g PO DAILY PRN Constipation 02/13/22 03/13/22 History oral powder packet pregabalin 75 mg capsule 75 mg PO BID #10 caps 05/04/22 11/20/22 Rx calcium acetate(phosphat bind) 667 667 mg PO TID 05/25/22 11/19/22 History mg capsule tramadol 50 mg tablet 50 mg PO Q6H PRN pain 3 days #5 05/30/22 06/03/23 Rx tabs insulin glargine 100 unit/mL (3 10 unit subcut QPM 06/14/22 11/19/22 History mL) subcutaneous pen (Lantus Solostar U-100 Insulin) diltiazem HCl 180 mg 240 mg PO DAILY 11/28/22 Unknown History capsule,extended release 24 hr hydralazine 50 mg tablet 25 mg PO TID 11/28/22 Unknown History flash glucose scanning reader #1 ea 12/07/22 Unknown Rx (FreeStyle Yane 2 [place]) flash glucose sensor (FreeStyle #2 ea 12/07/22 Unknown Rx Yane 2 Sensor kit) pantoprazole 40 mg tablet,delayed 40 mg PO Q12H 12/10/22 Unknown History release ondansetron 4 mg disintegrating 4 mg PO Q8H PRN PRN Nausea #10 tabs 03/17/23 Unknown Rx tablet clonidine HCl 0.3 mg tablet 0.3 mg PO Q12H 04/17/23 Unknown History meclizine 25 mg tablet 12.5 mg (1/2 x 25 mg) PO BID PRN 10/01/23 Unknown Rx dizziness #10 tabs midodrine 10 mg tablet mg PO 10/18/23 Unknown History clopidogrel 75 mg tablet (Plavix) 75 mg PO DAILY #90 tabs 10/28/23 Unknown Rx Allergy/AdvReac Type Severity Reaction Status Date / Time metformin AdvReac Diarrhea Verified 04/04/24 11:17 Family History Mother Hypertension Father Cancer lymphoma, leukemia Emphysema of lung Hypertension Grandmother Diabetes CVA (cerebral vascular accident) Surgical History S/P arteriovenous (AV) graft repair S/P arteriovenous (AV) fistula repair S/P arteriovenous (AV) fistula creation S/P dialysis catheter insertion History of esophagogastroduodenoscopy (EGD) Hx of colonoscopy History of mandibular surgery History of cholecystectomy Social History household members: significant other housing: custodial Smoking Status: Never smoker alcohol intake: never substance use type: does not use ROS ROS ED ROS Narrative Denies recent illness. Constitutional Constitutional ED: Denies chills or fever(s) Eyes Eyes: Denies blurry vision ENT ENT ED: Denies ear pain Cardiovascular Cardiovascular: Denies chest pain Respiratory/Chest Respiratory/Chest: Denies cough or dyspnea Gastrointestinal Gastrointestinal: Denies abdominal pain Genitourinary Genitourinary ED: Denies dysuria Musculoskeletal Musculoskeletal: Denies arthralgias Integumentary Denies abscess Neurologic Neurologic: Denies headache(s) Psychiatric Psychiatric: Denies anxiety Endocrine Endocrinology: Denies polydipsia Hematologic/Lymphatic Hematologic/Lymphatic: Denies easy bleeding Allergic/Immunologic Allergic/Immunologic ED: Denies mouth swelling EXAM Physical Exam Narrative Exam Narrative: Well-appearing 63-year-old female. Vital signs stable afebrile. H EENT exam pupils round react light. Motions are intact. No signs of facial or head trauma. Nontender. No hematoma. No bruising. Neck nontender. Back and spine nontender. No trauma. Lungs clear to auscultation bilaterally. Heart regular rate rhythm rate about 90 no murmur. Chest wall and ribs nontender. Abdomen soft nontender. No peritoneal signs. Pelvic girdle intact. Mild tenderness left hip. No rotation or shortening. Discomfort with range of motion of left hip. Dorsi plantarflexion intact. Right lower extremity nontender. Trace edema bilaterally. Knees and ankles are nontender. Neurologically she is awake and alert. Answering questions following commands. GCS 15. Const Vital Signs: 04/04/24 11:16 04/04/24 13:16 Temperature 98 F Temperature Source Temporal Pulse Rate 89 Respiratory Rate 16 17 Blood Pressure 175/75 H 127/52 H Blood Pressure Mean 108 77 Pulse Ox 90 98 Oxygen Delivery Method Room Air Positive well nourished and well developed; Negative for cachectic, contractures or unkempt General Appearance ED: well developed and NAD; Negative for unkempt, cachectic or contractures Nutritional Appearance: Negative for cachectic HEENT Reports moist mucous membranes normocephalic and atraumatic; Negative for trauma or tenderness Eyes PERRL Neck full ROM and supple Thyroid: Negative for tender Chest Wall inspection of chest normal and palpation of chest normal Resp normal respiratory effort, no retractions and clear to auscultation bilaterally Auscultation: Negative for rales, rhonchi, wheezes or diminished lung sounds Cardio regular rate, regular rhythm, S1 normal heart sound, S2 normal heart sound and no murmurs Rate: Negative for bradycardia Rhythm: Negative for abnormal rhythm GI non-tender, non-distended and no masses Inspection: Negative for abdominal distention Palpation: soft; Negative for tender, guarding or rebound tenderness present Back/Spine no CVA tenderness General Back: Negative for CVA tenderness Cervical Spine: Negative for cervical spine tenderness Thoracic Spine / Upper Back: Negative for thoracic spinal tenderness Lumbar Spine / Lower Back: Negative for lumbar spinal tenderness Extremity Negative for normal to inspection Extremity Narrative: Mild tenderness left hip. No shortening or rotation. Pain with flexion. No gross bony deformity. Trace edema bilaterally. Which is chronic. Dorsi plantarflexion intact. Right leg nontender. General Extremety ED: Yes edema and weight-bearing difficulty General Extremity: edema and weight-bearing difficulty Neuro oriented x3 and CN's II-XII intact bilaterally Sensorium / Orientation: alert, oriented to person, oriented to place and oriented to time; Negative for orientation impaired, confused or lethargic Motor Exam: strength 5/5 throughout Psych mental status grossly normal Appearance: Negative for unkempt Skin no wounds Lesions: no lesions Rashes: no rashes Trauma: Negative for abrasion or laceration MDM MDM MDM Narrative Medical decision making narrative: 63-year-old female fell at dialysis injuring her left hip. Prior left hip fracture. X-rays of the hip, pelvis and femur being obtained. She requested a tramadol for pain. Repeat exam at 1:22 PM patient doing well. We went over x-ray. Nurses will get her up and ambulate her. If she can ambulate she will be discharged. The dialysis center told our nursing staff that we can get her back there by 430 they would dialyze her today which she would prefer. Repeat exam otherwise unchanged. History & Record Review Discussion w/independent historian: Patient Radiography Diagnostic Testing: Clinical Impression(s) from Imaging Studies Femur X-Ray 04/04/24 12:15 IMPRESSION: Healed prior fracture status post ORIF. No acute fracture. Electronically Signed: Lyle Rodriguez MD at 13:06 EST , Pelvis X-Ray 04/04/24 12:15 IMPRESSION: No acute fracture. Prior left hip fracture status post ORIF. Electronically Signed: Lyle Rodriguez MD at 13:05 EST , Left hip x-ray, 1 view interpreted myself and radiologist shows no acute fracture. Prior hip fracture with orthopedic repair. No acute abnormality. Left femur x-ray, 4 views, interpreted both by myself and the radiologist shows no acute fracture. Prior femur fracture with orthopedic hardware repair. No acute injury. Discharge Plan Triage Chief Complaint: Lower Extremity Injury ED Provider: Mitesh Magana Dx/Rx/DC Orders Clinical Impression: Fall, Contusion of hip, left, History of end stage renal disease, History of fracture of left hip, History of renal dialysis Instructions: ED Hip Contusion Prescriptions: No Action (DME) FreeStyle Yane 2 [place] Misc See Rx Instructions .Route Qty: 1 0RF Rx Instructions: As directed (DME) FreeStyle Yane 2 Sensor Kit See Rx Instructions .Route Qty: 2 6RF Rx Instructions: As directed hydralazine 50 mg tablet 25 mg PO TID diltiazem HCl 180 mg capsule,extended release 24hr 240 mg PO DAILY pantoprazole 40 mg tablet,delayed release (DR/EC) 40 mg PO Q12H clonidine HCl 0.3 mg tablet 0.3 mg PO Q12H midodrine 10 mg tablet PO atorvastatin 40 MG tablet 40 mg PO QHS aspirin 81 MG tablet,chewable 81 mg PO QHS insulin lispro [Humalog KwikPen Insulin] 100 unit/mL insulin pen 8 unit subcut TIDCM Rx Instructions: with meals sertraline 50 mg tablet 50 mg PO QHS polyethylene glycol 3350 17 gram powder in packet 17 g PO DAILY PRN (Reason: Constipation) pregabalin 75 mg Capsule 75 mg PO BID Qty: 10 0RF calcium acetate(phosphat bind) 667 mg Capsule 667 mg PO TID tramadol 50 mg tablet 50 mg PO Q6H PRN (Reason: pain) 3 Days Qty: 5 0RF insulin glargine [Lantus Solostar U-100 Insulin] 100 unit/mL (3 mL) Insulin Pen 10 unit SUBCUT QPM ondansetron 4 mg tablet,disintegrating 4 mg PO Q8H PRN PRN (Reason: Nausea) Qty: 10 0RF meclizine 25 mg tablet 12.5 mg PO BID PRN (Reason: dizziness) Qty: 10 0RF clopidogrel [Plavix] 75 mg tablet 75 mg PO DAILY Qty: 90 0RF Primary Care Provider: Dennys Serrano Referrals: Dennys Serrano MD [Primary Care Provider] - 3-5 Days if not improving Activity Restrictions/Additional Instructions: Ice to your hip. Tylenol for pain. Follow-up with your doctor if is not improving. Your x-rays today of the hip, pelvis and femur do not show any broken bones. And good healing from the prior orthopedic surgical repair of the hip fracture. Print Language: Welsh Disposition Disposition: Home, Self Care
[2024-04-04] MEDS: traMADol 50 MG Tablet PO (12:24)
--- NOTE | 2024-04-04 13:51 | ED.RN ---
Patient unable to more than a couple of steps with walker. Patient appears to be favoring left side and reluctant to bear weight on right. Patient sat on walker mid walk. Dr. Magana notified.
--- NOTE | 2024-04-04 14:11 | RAD_ITS ---
EXAM: XR RIGHT HIP WITH PELVIS WHEN PERFORMED, 2 OR 3 VIEWS CLINICAL INDICATION: c/o right hip pain now TECHNIQUE: Two or three views of the right hip with pelvis when performed. COMPARISON: No relevant prior studies available. FINDINGS: BONES/JOINTS: Unremarkable. No displaced fracture. No destructive or sclerotic lesions. Note that overlapping bowel shadows may however obscure fine detail. Sacroiliac joint is unremarkable. No widening of the pubic symphysis. The articular structures are unremarkable. SOFT TISSUES: Unremarkable. No soft tissue swelling or gas. RAD/Hip Min 2 Views (Portable) IMPRESSION: No evidence of displaced pelvic or hip fracture. Electronically Signed: Tyshawn Quinonez MD at 16:35 EST ,
--- NOTE | 2024-04-04 19:29 | ED.RN ---
CALLED [facility] @ 1930, SPOKE TO NORM. EXPLAINED WE NEED TO VERIFY THAT PT'S TRIP WOULD NOT BE BILLED TO THE HOSPITAL DUE TO PT HAVING ASSISTIVE DEVICE HERE WITH HER (A WALKER). I EXPLAINED THAT PT CANNOT AMBULATE WELL, BUT IS ABLE TO TRANSFER TO ON HER OWN. HOWEVER PT DOES HAVE CONCERNS REGARDING GETTING UP THE STEPS AT HER HOME, SO WE WERE NOT SURE IF THIS WARRANTED A W/C VAN OR A COT. NORM REASSURED THAT [facility] WOULD DEFINITELY COVER THE TRIP AND IT WOULD NOT BE BILLED TO US AT THE HOSPITAL.
--- NOTE | 2024-04-04 21:51 | ED.RN ---
Family and patient very adamant that family refuses to transport patient as they do not feel comfortable or safe transporting patient.
--- NOTE | 2024-04-04 22:21 | ED.RN ---
[facility] attempting to ambulate pt to cot. Squad unable to assist pt, this RN and rn hemodialysis charge also assisted pt to ambulate. Pt still was unable to ambulate at this time. fundraiser contacted boyfriend who lives with/ takes care of patient at home. Significant other informed that pt refused to ambulate and will have a squad assist her home via a full cot.
--- NOTE | 2024-04-04 22:23 | ED.RN ---
In room with pt, EMS crew and nurse Denise. Pt refusing to walk to cot. Pt needs 2x assist to stand, refuses to walk forward. Discussed with EMS crew, they state they can take her home via cot as a BLS run as long as someone is home with her. Called and spoke to significant other Karri, he states he and Gladis live together and he would be assuming care for her. EMS crew updated of same.
== END 2024-04-05 01:04 | disposition home or self-care (01) ==
PROVIDERS: Emergency Provider Emergency Medicine; PCP Family Medicine; Visit Provider Emergency Medicine
DX: S70.02XA Contusion of left hip, initial encounter (principal); I12.0 Hypertensive chronic kidney disease with stage 5 chronic kidney disease or end stage renal disease; N18.6 End stage renal disease; E11.22 Type 2 diabetes mellitus with diabetic chronic kidney disease; Z79.4 Long term (current) use of insulin; E78.00 Pure hypercholesterolemia, unspecified; Z99.2 Dependence on renal dialysis; W17.89XA Other fall from one level to another, initial encounter; Y92.89 Other specified places as the place of occurrence of the external cause; Z79.82 Long term (current) use of aspirin; Z79.899 Other long term (current) drug therapy; F32.A Depression, unspecified; K21.9 Gastro-esophageal reflux disease without esophagitis; Z90.49 Acquired absence of other specified parts of digestive tract
CPT/HCPCS: 99284; 72170; 73502; 73552

== ENCOUNTER 2024-04-06 15:52 | Inpatient (IN) | payer MEDICARE, MEDICAID, SELFPAY ==
[2024-04-06 15:53] VITALS: BP 175/91; PULSE 97; RESP 15; TEMP 36.7; O2SAT 97; BMI 27.9
--- NOTE | 2024-04-06 16:05 | EKG12_ITS ---
Test Reason : FALL Blood Pressure : */* mmHG Vent. Rate : 94 BPM Atrial Rate : 94 BPM P-R Int : 188 ms QRS Dur : 88 ms QT Int : 346 ms P-R-T Axes : 66 42 61 degrees QTcB Int : 432 ms Normal sinus rhythm Normal ECG Confirmed by Se Hinds ([id number]), advertising editor RAFI DOMINGO ([id number]) on 04/07/2024 1:26:31 PM Referred By: Confirmed By: Se Hinds
--- NOTE | 2024-04-06 16:05 | EDS_ITS ---
HPI History of Present Illness Chief Complaint: Weakness Narrative Narrative: Patient is a 63-year-old female with a past medical history of end-stage renal disease on dialysis, depression, hypertension, diabetes, hypercholesteremia, GERD who presented to the emergency department chief complaint of generalized weakness. States that on Saturday she had a fall while at dialysis was evaluated here was ultimately sent home. She states that since then she has had difficulty with ambulation and states that she is extremely weak and not able to care for herself at home. States that she came here for reevaluation. Patient denies any new falls. [facility] Medical History Colitis Proctitis Ulcer of left ankle Non-pressure chronic ulcer of other part of left foot with fat layer exposed Personal history of colonic polyps Non-pressure chronic ulcer of other part of right foot with fat layer exposed Pressure ulcer of left heel, stage 2 Pain in left foot Osteomyelitis Ulcer of left heel Severe sepsis Hypoglycemia due to insulin Stage 5 chronic kidney disease due to type 2 diabetes mellitus Long-term insulin use Walker as ambulation aid History of renal disease Difficulty chewing History of renal dialysis Accidental fall Depression Uses wheelchair Arthritis Bilateral pleural effusion CKD (chronic kidney disease) stage 4, GFR 15-29 ml/min Anemia Diabetes mellitus with hyperglycemia Transfusion of blood during current hospitalisation Symptomatic anemia Diabetes HTN (hypertension) Closed intertrochanteric fracture of left hip Wears glasses Insulin dependent diabetes mellitus Low iron Excessive bleeding High cholesterol Migraine headache Injury of head and neck Syncope Vomiting Dietary restriction Gastric reflux Non-smoker History of edema History of echocardiogram History of stress test Cardiology follow-up encounter Hx of orthostatic hypotension Chronic pain syndrome Malnutrition Essential hypertension Vertigo Migraine without aura HLD (hyperlipidemia) Post-concussion syndrome History of orthostatic hypotension Home Medications ?Medication ?Instructions ?Recorded ?Last Taken ?Type aspirin 81 mg chewable tablet 81 mg PO QHS HEART HEALTH 12/15/19 11/20/22 History atorvastatin 40 mg tablet 40 mg PO QHS CHOLESTEROL 12/15/19 11/19/22 History insulin lispro 100 unit/mL 8 unit subcut TIDCM diabetes 01/06/22 03/13/23 History subcutaneous pen (Humalog KwikPen (U-100) Insulin) sertraline 50 mg tablet 50 mg PO QHS DEPRESSION 01/06/22 11/20/22 History pregabalin 75 mg capsule 75 mg PO BID #10 caps 05/04/22 11/20/22 Rx calcium acetate(phosphat bind) 667 667 mg PO TID 05/25/22 11/19/22 History mg capsule tramadol 50 mg tablet 50 mg PO Q6H PRN pain 3 days #5 05/30/22 06/03/23 Rx tabs insulin glargine 100 unit/mL (3 10 unit subcut QPM 06/14/22 11/19/22 History mL) subcutaneous pen (Lantus Solostar U-100 Insulin) diltiazem HCl 180 mg 240 mg PO DAILY 11/28/22 Unknown History capsule,extended release 24 hr hydralazine 50 mg tablet 25 mg PO TID 11/28/22 Unknown History flash glucose scanning reader #1 ea 12/07/22 Unknown Rx (FreeStyle Yane 2 [place]) flash glucose sensor (FreeStyle #2 ea 12/07/22 Unknown Rx Yane 2 Sensor kit) pantoprazole 40 mg tablet,delayed 40 mg PO Q12H 12/10/22 Unknown History release clonidine HCl 0.3 mg tablet 0.3 mg PO Q12H 04/17/23 Unknown History meclizine 25 mg tablet 12.5 mg (1/2 x 25 mg) PO BID PRN 10/01/23 Unknown Rx dizziness #10 tabs midodrine 10 mg tablet 10 mg PO 10/18/23 Unknown History clopidogrel 75 mg tablet (Plavix) 75 mg PO DAILY #90 tabs 10/28/23 Unknown Rx polyethylene glycol 3350 17 17 g PO DAILY 04/06/24 Unknown History gram/dose oral powder (ClearLax) Allergy/AdvReac Type Severity Reaction Status Date / Time metformin AdvReac Diarrhea Verified 04/06/24 16:00 Family History Mother Hypertension Father Cancer lymphoma, leukemia Emphysema of lung Hypertension Grandmother Diabetes CVA (cerebral vascular accident) Surgical History S/P arteriovenous (AV) graft repair S/P arteriovenous (AV) fistula repair S/P arteriovenous (AV) fistula creation S/P dialysis catheter insertion History of esophagogastroduodenoscopy (EGD) Hx of colonoscopy History of mandibular surgery History of cholecystectomy Social History household members: significant other housing: half-way Smoking Status: Never smoker alcohol intake: never substance use type: does not use ROS ROS ED ROS Narrative Constitutional: Denies fevers, chills, headaches, lightheadedness, dizziness Eyes: Denies change in vision double vision blurry vision Cardiovascular: Denies chest pain or palpitations Respiratory: Denies coughing wheezing shortness of breath Abdomen: Denies abdominal pain nausea vomit diarrhea : Denies any urinary symptoms Neurological: Complains of generalized weakness as noted above denies any numbness or tingling Musculoskeletal: Denies back pain Skin: Denies rashes or lesions EXAM Physical Exam Narrative Exam Narrative: General: Patient lying in bed rest comfortably did not appear to be in acute distress Head: Atraumatic, normocephalic Eyes: PERRL bilateral, EOMI bilateral, no conjunctival injection noted Neck: Soft, supple, trachea midline Cardiovascular: Regular rate and rhythm no murmurs gallops rubs noted Respiratory: Clear to auscultation bilaterally Abdomen: Soft, nondistended, no tenderness palpation Extremities: +4/5 strength noted in the bilateral upper and lower extremities, no pedal edema on exam Neurological: Patient follow commands knew that she was at [facility] year is 2024 Skin: Warm, dry, intact no rashes noted Const Vital Signs: 04/06/24 15:53 04/06/24 16:00 Temperature 98.1 F Temperature Source Oral Pulse Rate 97 Respiratory Rate 15 Respiratory Effort Normal Non-Labored Respiratory Pattern Normal Blood Pressure 175/91 H Blood Pressure Mean 119 Pulse Ox 97 Oxygen Delivery Method Room Air MDM MDM MDM Narrative Medical decision making narrative: Patient is a 63-year-old female who presented to the emerged part with chief complaint of generalized weakness. On the differential diagnose includes but not limited to UTI although the patient states that she does not make urine, deconditioning leading to generalized weakness, electrolyte abnormality. Once workup is obtained reviewed she will be reevaluated. Patient's CBC reviewed showed no evidence leukocytosis white blood count normal 5.3, hemoglobin was 9.6, platelet count was noted to be 177. Patient sodium 132, potassium was 5.4 however she does not have any EKG changes associated with this, creatinine was 8.70 she is due for dialysis tomorrow, glucose was 327. Patient AST and ALT were 17 and 15 respectively. Patient's anion gap normal at 6. Patient's EKG reviewed and independently turbid myself showed sinus rhythm with a rate of 94 beats per minutes. At this point time given the patient is unable to care for self at home has generalized weakness she will require admission for potential placement into rehab facility. Patient is agreeable this plan. Discussed case with hospitalist Dr. Bob who will accept patient for admission. Patient notified all question concerns answered bedside. Lab Data Labs: Laboratory Results - last 24 hr 04/06/24 17:28 WBC 5.3 RBC 3.22 L Hgb 9.6 L Hct 30.6 L MCV 95.0 MCH 29.8 MCHC 31.4 L RDW Std Deviation 47.7 H RDW Coeff of Chris 13.6 Plt Count 177 MPV 11.1 Immature Gran % (Auto) 0.600 Neut % (Auto) 70.6 H Lymph % (Auto) 19.9 [place] % (Auto) 5.8 Eos % (Auto) 2.4 Baso % (Auto) 0.7 Absolute Neuts (auto) 3.8 Absolute Lymphs (auto) 1.06 Nucleated RBC % 0 Sodium 132 L Potassium 5.4 H Chloride 96 L Carbon Dioxide 30.0 Anion Gap 6 BUN 71 H Creatinine 8.70 H* Estim Creat Clear Calc 6.93 Est GFR (MDRD) Af Amer 6 L Est GFR (MDRD) Non-Af 5 L BUN/Creatinine Ratio 8.2 L Glucose 327 H Calcium 9.0 Total Bilirubin 0.40 AST 12 L ALT 15 Alkaline Phosphatase 136 H Total Protein 5.9 L Albumin 2.9 L Globulin 3.0 Albumin/Globulin Ratio 1.0 Discharge Plan Triage Chief Complaint: Weakness ED Provider: [place] Clifford Dx/Rx/DC Orders Clinical Impression: Generalized weakness, Chronic kidney disease, stage V requiring chronic dialysis Prescriptions: No Action (DME) FreeStyle Yane 2 [place] Misc See Rx Instructions .Route Qty: 1 0RF Rx Instructions: As directed (DME) FreeStyle Yane 2 Sensor Kit See Rx Instructions .Route Qty: 2 6RF Rx Instructions: As directed hydralazine 50 mg tablet 25 mg PO TID diltiazem HCl 180 mg capsule,extended release 24hr 240 mg PO DAILY pantoprazole 40 mg tablet,delayed release (DR/EC) 40 mg PO Q12H clonidine HCl 0.3 mg tablet 0.3 mg PO Q12H midodrine 10 mg tablet 10 mg PO Patient Comments: pt takes at dialysis 2 times when there. atorvastatin 40 MG tablet 40 mg PO QHS aspirin 81 MG tablet,chewable 81 mg PO QHS insulin lispro [Humalog KwikPen Insulin] 100 unit/mL insulin pen 8 unit subcut TIDCM Rx Instructions: with meals sertraline 50 mg tablet 50 mg PO QHS pregabalin 75 mg Capsule 75 mg PO BID Qty: 10 0RF calcium acetate(phosphat bind) 667 mg Capsule 667 mg PO TID tramadol 50 mg tablet 50 mg PO Q6H PRN (Reason: pain) 3 Days Qty: 5 0RF insulin glargine [Lantus Solostar U-100 Insulin] 100 unit/mL (3 mL) Insulin Pen 10 unit SUBCUT QPM meclizine 25 mg tablet 12.5 mg PO BID PRN (Reason: dizziness) Qty: 10 0RF polyethylene glycol 3350 [ClearLax] 17 gram/dose powder 17 g PO DAILY clopidogrel [Plavix] 75 mg tablet 75 mg PO DAILY Qty: 90 0RF Primary Care Provider: Dennys Serrano Referrals: Dennys Serrano MD [Primary Care Provider] - Print Language: [place] Disposition Disposition: Acute Care Hospital [facility]
[2024-04-06] MEDS: 0.9% Normal Saline (1000mL) 1,000 ML 999 ML IV (16:39)
--- NOTE | 2024-04-06 16:55 | ED.RN ---
This RN attempted to start an iv and get blood work but the iv was not successful. Another RN attempted to get an IV and did receive it but was not able to get blood work from it. This RN then attempted to straight stick the patient and was not able to get blood work either. This RN called lab to come up and attempt.
[2024-04-06 17:58] LABS: Absolute Lymphocyte Count 1.06 X10^3/uL (0.83-4.51); Absolute Neutrophil Count 3.8 X10^3/uL (2.0-7.7); Basophil# 0.04 X10^3/uL; Basophil% 0.7 % (0-1); Eosinophil# 0.13 X10^3/uL; Eosinophils% 2.4 % (0-5); Hematocrit 30.6 % (37-47); Hemoglobin 9.6 g/dL (12.0-15.0); Lymphocyte # 1.06 X10^3/ul (0.83-4.51); Lymphocyte % 19.9 % (19-41); Mean Corp Hgb Conc 31.4 g/dL (32-36); Mean Corpuscular Hgb 29.8 pg (27.0-32.0); Mean Platelet Vol. 11.1 fl (6.2-12.0); Monocyte# 0.31 X10^3/uL; Monocyte% 5.8 % (0-10); NRBC Flagged by Analyzer 0 % (0-5); Neutrophil # 3.77 X10^3/uL (2.7-7.7); Neutrophil % 70.6 % (47-70); Platelet Count 177 K/mm3 (150-450); RBC Distribution Width CV 13.6 % (11.6-14.6); RBC Distribution Width SD 47.7 fl (35.1-43.9); Red Blood Count 3.22 M/mm3 (4.2-5.4); White Blood Count 5.3 K/mm3 (4.4-11.0)
[2024-04-06 18:23] LABS: AST(SGOT) 12 U/L (15-37); Alanine Aminotransfer ALT/SGPT 15 U/L (13-56); Albumin, Serum 2.9 g/dL (3.2-5.0); Alkaline Phosphatase 136 U/L (45-117); Anion Gap 6 (5-15); BUN 71 mg/dL (7-18); BUN/Creat Ratio 8.2 RATIO (10-20); Chloride 96 mmol/L (98-107); EST Glomerular Filtration Rate 5 mL/min (>60); Est Glom Filt Rate - Afr Amer 6 mL/min (>60); Estimated Creatinine Clearance 6.93 ml/min; Glucose 327 mg/dL (74-106); Potassium 5.4 mmol/L (3.5-5.1); Protein, Total 5.9 g/dL (6.4-8.2); Sodium Level 132 mmol/L (136-145)
--- NOTE | 2024-04-06 19:06 | HP.PCM.HOS_ITS ---
HPI - General General Date of Admission: 04/06/24 Date of Service: 04/06/24 Chief Complaint: Debility, weakness, unable to care for self. HPI Narrative The patient is a 63 y/o F w/ PMHx: Anxiety and Depression, ESRD on HD following with Dr. Aubree Terry, Orthostatic hypotension, Diabetes mellitus type II w/ Hx diabetic foot wounds and prior osteomyelitis, Chronic anemia/AOCD/Fe deficiency anemia, Chronic migraines, Chronic pain syndrome, HLD, HTN, recent previous ED evaluation secondary to loss of balance following her left buttock and hip with previous left hip fracture repair with intractable pain prompting transition from dialysis to the ED with workup including 04/04/2024 evaluation for mechanical fall with plain film of the left femur with a healed prior fracture status post ORIF with no acute fracture, plain film of the left hip and pelvis with no acute fracture, plain film of the right hip and pelvis with no evidence of displaced pelvic or hip fracture now re-presents to the [facility] ED on 04/06/2024 with significant debility, inability to take care of herself at home and difficulty ambulating because of the severity of weakness as well as discomfort primarily left hip, back and neck all reported as aching and uncomfortable prompting eventual ED evaluation to be cautious. Workup in the ED included T98.1, heart rate 97, BP 175/91, respiratory rate 15, 97% on room air, CBC with WBC 5.3, he will 9.6, MCV 95, platelet 177 without marked shift, CMP with sodium 132, potassium 5.4, chloride 96, BUN/creatinine 71/8.70, GFR 5, glucose 327, hepatic profile not marked aside from alk phos 136. [facility] Medical History Colitis Proctitis Ulcer of left ankle Non-pressure chronic ulcer of other part of left foot with fat layer exposed Personal history of colonic polyps Non-pressure chronic ulcer of other part of right foot with fat layer exposed Pressure ulcer of left heel, stage 2 Pain in left foot Osteomyelitis Ulcer of left heel Severe sepsis Hypoglycemia due to insulin Stage 5 chronic kidney disease due to type 2 diabetes mellitus Long-term insulin use Walker as ambulation aid History of renal disease Difficulty chewing History of renal dialysis Accidental fall Depression Uses wheelchair Arthritis Bilateral pleural effusion CKD (chronic kidney disease) stage 4, GFR 15-29 ml/min Anemia Diabetes mellitus with hyperglycemia Transfusion of blood during current hospitalisation Symptomatic anemia Diabetes HTN (hypertension) Closed intertrochanteric fracture of left hip Wears glasses Insulin dependent diabetes mellitus Low iron Excessive bleeding High cholesterol Migraine headache Injury of head and neck Syncope Vomiting Dietary restriction Gastric reflux Non-smoker History of edema History of echocardiogram History of stress test Cardiology follow-up encounter Hx of orthostatic hypotension Chronic pain syndrome Malnutrition Essential hypertension Vertigo Migraine without aura HLD (hyperlipidemia) Post-concussion syndrome History of orthostatic hypotension Home Medications ?Medication ?Instructions ?Recorded ?Last Taken ?Type aspirin 81 mg chewable tablet 81 mg PO QHS HEART HEALTH 12/15/19 11/20/22 History atorvastatin 40 mg tablet 40 mg PO QHS CHOLESTEROL 12/15/19 11/19/22 History insulin lispro 100 unit/mL 8 unit subcut TIDCM diabetes 01/06/22 03/13/23 History subcutaneous pen (Humalog KwikPen (U-100) Insulin) sertraline 50 mg tablet 50 mg PO QHS DEPRESSION 01/06/22 11/20/22 History pregabalin 75 mg capsule 75 mg PO BID #10 caps 05/04/22 11/20/22 Rx calcium acetate(phosphat bind) 667 667 mg PO TID 05/25/22 11/19/22 History mg capsule tramadol 50 mg tablet 50 mg PO Q6H PRN pain 3 days #5 05/30/22 06/03/23 Rx tabs insulin glargine 100 unit/mL (3 10 unit subcut QPM 06/14/22 11/19/22 History mL) subcutaneous pen (Lantus Solostar U-100 Insulin) diltiazem HCl 180 mg 240 mg PO DAILY 11/28/22 Unknown History capsule,extended release 24 hr hydralazine 50 mg tablet 25 mg PO TID 11/28/22 Unknown History flash glucose scanning reader #1 ea 12/07/22 Unknown Rx (FreeStyle Yane 2 [place]) flash glucose sensor (FreeStyle #2 ea 12/07/22 Unknown Rx Yane 2 Sensor kit) pantoprazole 40 mg tablet,delayed 40 mg PO Q12H 12/10/22 Unknown History release clonidine HCl 0.3 mg tablet 0.3 mg PO Q12H 04/17/23 Unknown History meclizine 25 mg tablet 12.5 mg (1/2 x 25 mg) PO BID PRN 10/01/23 Unknown Rx dizziness #10 tabs midodrine 10 mg tablet 10 mg PO 10/18/23 Unknown History clopidogrel 75 mg tablet (Plavix) 75 mg PO DAILY #90 tabs 10/28/23 Unknown Rx polyethylene glycol 3350 17 17 g PO DAILY 04/06/24 Unknown History gram/dose oral powder (ClearLax) Allergy/AdvReac Type Severity Reaction Status Date / Time metformin AdvReac Diarrhea Verified 04/06/24 16:00 Family History Mother Hypertension Father Cancer lymphoma, leukemia Emphysema of lung Hypertension Grandmother Diabetes CVA (cerebral vascular accident) Surgical History S/P arteriovenous (AV) graft repair S/P arteriovenous (AV) fistula repair S/P arteriovenous (AV) fistula creation S/P dialysis catheter insertion History of esophagogastroduodenoscopy (EGD) Hx of colonoscopy History of mandibular surgery History of cholecystectomy Social History household members: significant other housing: long-term Smoking Status: Never smoker alcohol intake: never substance use type: does not use ROS ROS Narrative Admission Review of Systems: CONSTITUTIONAL: No weight loss, fever, chills, + weakness or fatigue. HEENT: + Neck discomfort. Eyes: No visual loss, blurred vision, double vision or yellow sclerae. Ears, Nose, Throat: No hearing loss, sneezing, congestion, runny nose or sore throat. SKIN: No rash or itching, lesions, wounds + except occasional stage ecchymoses, abrasions, bilateral lower extremity venous stasis skin changes. CARDIOVASCULAR: + Chronic bilateral lower extremity edema no chest pain, chest pressure or chest discomfort, palpitations, orthopnea, syncopal events. RESPIRATORY: No shortness of breath, cough or sputum, wheezing, hemoptysis. GASTROINTESTINAL: No anorexia, nausea, vomiting or diarrhea, abdominal pain, melena, BRBPR. GENITOURINARY: No dysuria, frequency, urgency or retention. NEUROLOGICAL: + Debility, weakness. No headache, dizziness, syncope, paralysis, ataxia, numbness or tingling in the extremities, focal weakness, change in bowel or bladder control, seizure. MUSCULOSKELETAL: + muscle, back pain, joint pain or stiffness. HEMATOLOGIC: + Chronic anemia, easy bleeding/bruising LYMPHATICS: No enlarged nodes. No history of splenectomy. PSYCHIATRIC: + History of anxiety and depression. ENDOCRINOLOGIC: No reports of sweating, cold or heat intolerance. No polyuria or polydipsia. ALLERGIES: No history of asthma, hives, eczema or rhinitis. Vital Signs Vital Signs Vital Signs: 04/06/24 15:53 04/06/24 16:00 Temperature 98.1 F Temperature Source Oral Pulse Rate 97 Respiratory Rate 15 Respiratory Effort Normal Non-Labored Respiratory Pattern Normal Blood Pressure 175/91 H Blood Pressure Mean 119 Pulse Ox 97 Oxygen Delivery Method Room Air Weight Weight: 167 lb 12.348 oz Body Mass Index (BMI) 27.9 Physical Exam Narrative Physical Examination: General: Awake, alert, oriented x 3 and cooperative, seated upright in the ED bed in no apparent distress, notes aching discomfort to her back, neck, left hip and generalized muscle aches and fatigue. Skin: Normal color, normal turgor, no icterus, no cyanosis except occasional stage ecchymoses, abrasions, bilateral lower extremity venous stasis skin changes HEENT: AT/NC, EOMI, PERRLA, mildly dry MM, no carotid bruits or JVD noted. Lungs: Mildly diminished, greater bases, appropriate effort, no rales, ronchi or wheezing. Heart: Regular rate and rhythm; no gallop, rub audible. Abdomen: Soft, overweight, NTTP, ND, normal BS, no appreciated HSM. Extremities: No cyanosis, no clubbing, mild pedal to distal rick not markedly pitting edema, AVF. Neurological: Patient awake, alert, oriented as noted, cognitive function intact; pupils equally reactive to light and accommodation, cranial nerves gross normal, moving all 4 extremities, no focal deficits, strength moderately to severely globally decreased, tenderness to palpation of the paraspinous muscles, no focal tenderness along the spine. Psychiatric: Affect appears fatigued, no acute evidence of depressive or anxiety feelings but does have underlying history. Results Lab / Micro Data 04/06/24 17:28 04/06/24 17:28 Labs: Laboratory Results - last 24 hr 04/06/24 17:28: WBC 5.3, RBC 3.22 L, Hgb 9.6 L, Hct 30.6 L, MCV 95.0, MCH 29.8, MCHC 31.4 L, RDW Std Deviation 47.7 H, RDW Coeff of Chris 13.6, Plt Count 177, MPV 11.1, Immature Gran % (Auto) 0.600, Neut % (Auto) 70.6 H, Lymph % (Auto) 19.9, [place] % (Auto) 5.8, Eos % (Auto) 2.4, Baso % (Auto) 0.7, Absolute Neuts (auto) 3.8, Absolute Lymphs (auto) 1.06, Nucleated RBC % 0, Sodium 132 L, Potassium 5.4 H, Chloride 96 L, Carbon Dioxide 30.0, Anion Gap 6, BUN 71 H, Creatinine 8.70 H* , Estim Creat Clear Calc 6.93, Est GFR (MDRD) Af Amer 6 L, Est GFR (MDRD) Non-Af 5 L, BUN/Creatinine Ratio 8.2 L, Glucose 327 H, Calcium 9.0, Total Bilirubin 0.40, AST 12 L, ALT 15, Alkaline Phosphatase 136 H, Total Protein 5.9 L, Albumin 2.9 L, Globulin 3.0, Albumin/Globulin Ratio 1.0 Assessment & Plan Assessment/Plan (1) Adult failure to thrive: PLAN: Plan The patient is a 63 y/o F w/ PMHx: Anxiety and Depression, ESRD on HD following with Dr. Aubree Terry, Orthostatic hypotension, Diabetes mellitus type II w/ Hx diabetic foot wounds and prior osteomyelitis, Chronic anemia/AOCD/Fe deficiency anemia, Chronic migraines, Chronic pain syndrome, HLD, HTN, recent previous ED evaluation secondary to loss of balance following her left buttock and hip with previous left hip fracture repair with intractable pain prompting transition from dialysis to the ED with unremarkable workup 04/04/2024 now re-presents to the [facility] ED on 04/06/2024 with significant debility, inability to take care of herself at home and difficulty ambulating because of the severity of weakness as well as discomfort primarily left hip, back and neck all reported as aching and uncomfortable prompting eventual ED evaluation to be cautious reporting that unfortunately her last dialysis was the prior as a result. #1. Recent history of mechanical fall with progressive weakness, debility, adult failure to thrive with unsafe ability to take care of herself at home complicated by Chronic pain syndrome: Will admit to PCU and maintain on telemetry given mild hyperkalemia in the setting of end-stage renal disease to be cautious, plan dialysis as noted to correct this, trend CMP, maintain on fall precautions, PT/OT/case management consulted for discharge planning as likely will need skilled facility placement. #2. ESRD with hyperkalemia, missed dialysis Complicated by history of AVF malfunction status post fistulogram and angioplasty left innominate vein: Patient status post fistulogram and angioplasty of the left innominate vein 10/28/2023, given current presentation will consult childhood development teacher Dr. Aubree Terry, requires dialysis especially given mild hyperkalemia, will initially only judiciously hydrate, will trend CMP, will continue patient's Plavix, statin, hypertensive regimen and diabetic regimen. Mag, Phos pending. #3. Diabetes mellitus type II with history of diabetic foot wound/prior osteomyelitis with chronic neuropathy with chronic bilateral skin breakdown, resolved: Hold oral home regimen, continue home insulin regimen, ADA diet, accu checks w/ ISS, encourage continued aggressive lifestyle and diet changes, routine footcare and self checks, continue home pregabalin regimen. Last wound care center note 03/24/[address] Solano podiatry, encouraged continued compression stockings, lotion to bilateral lower extremities, elevation above the heart to assist with swelling with no active wounds ongoing. #4. Hypertension: Continue home regimen including diltiazem, hydralazine, clonidine cautiously with hold parameters as needed especially given recent fall and orthostatic hypotension is noted, PRN hydralazine. #5. Hyperlipidemia: We will continue patient home statin therapy. #6. Anxiety and depression: We will continue patient home sertraline regimen. #7. Orthostatic hypotension: Will continue patient midodrine regimen, encourage slow positional changes. #8. GERD: We will continue patient on PPI. #9. Chronic anemia/AOCD/Fe deficiency anemia: Admission hemoglobin 9.6, MCV 95, baseline hemoglobin primarily has been 10-11, clarifying if on iron supplementation, continue to trend CBC. #10. DVT prophylaxis: Heparin. #11. CODE status: Patient JOB is her significant Lyle and living will is currently in place. Discussed CODE status at length including difference between FULL code, DNR-CCA and DNR-CC status. Following discussions about the differences in these status, requested Full Code status. Advanced Care Planning Face to Face Time: 16 minutes. Charges/Coding Visit Charges Inpatient E&M: 12672 Init Hosp L2 Procedures Hospitalists Procedures: 33581 Advncd Care Plan 30 Min
[2024-04-06 19:45] VITALS: BP 162/79; PULSE 92; RESP 19; TEMP 36.7; O2SAT 96
[2024-04-06 20:01] LABS: Magnesium 2.5 mg/dL (1.6-2.6); Phosphorus 4.4 mg/dL (2.5-4.9)
[2024-04-06 20:29] VITALS: BMI 27.3
[2024-04-06] MEDS: 0.9% Normal Saline (1000mL) 1,000 ML 100 ML IV (21:03)
[2024-04-06] MEDS: Insulin Glargine-YFGN 100 UNIT/ML Pen 10 UNIT SC (21:12)
[2024-04-06] MEDS: Insulin Lispro 100 UNIT/ML INSULN.PEN SC (21:13)
[2024-04-06] MEDS: traMADol 50 MG Tablet PO (21:14)
[2024-04-06] MEDS: Heparin Injection (Vial) 5,000 UNIT/ML VIAL 5000 UNIT SC (21:14)
[2024-04-06] MEDS: cloNIDine HCl 0.1 MG Tablet 0.3 MG PO (21:15)
[2024-04-06 21:16] VITALS: PULSE 94
[2024-04-06] MEDS: hydrALAZINE 25 MG Tablet PO (21:16)
[2024-04-06] MEDS: Atorvastatin Calcium 40 MG Tablet PO (21:16)
[2024-04-06] MEDS: Pantoprazole Sodium 40 MG Tablet PO (21:16)
[2024-04-06] MEDS: Sertraline 50 MG Tablet PO (21:17)
[2024-04-06] MEDS: Aspirin 81 MG TAB.CHEW PO (21:17)
[2024-04-06] MEDS: Pregabalin 75 MG Capsule PO (21:19)
[2024-04-06 21:20] VITALS: O2SAT 95
[2024-04-06 21:36] LABS: Bedside Glucose 203 mg/dL (74-106)
[2024-04-06 23:36] VITALS: BP 172/87; PULSE 75; RESP 16; TEMP 36.9; O2SAT 98
[2024-04-07] VITALS (20 sets, daily range): BP systolic 79–201; BP diastolic 49–76; PULSE 66–75; RESP 13–17; TEMP 36.4–36.9; O2SAT 94–100; BMI 27.6; BMI 26.8
[2024-04-07] MEDS: hydrALAZINE 25 MG Tablet PO (05:45)
[2024-04-07 07:06] LABS: Absolute Lymphocyte Count 1.29 X10^3/uL (0.83-4.51); Absolute Neutrophil Count 2.2 X10^3/uL (2.0-7.7); Basophil# 0.03 X10^3/uL; Basophil% 0.8 % (0-1); Eosinophil# 0.18 X10^3/uL; Eosinophils% 4.6 % (0-5); Hematocrit 28.5 % (37-47); Hemoglobin 9.1 g/dL (12.0-15.0); Lymphocyte # 1.29 X10^3/ul (0.83-4.51); Lymphocyte % 32.9 % (19-41); Mean Corp Hgb Conc 31.9 g/dL (32-36); Mean Corpuscular Hgb 30.1 pg (27.0-32.0); Mean Corpuscular Volume 94.4 fL (81-99); Mean Platelet Vol. 11.4 fl (6.2-12.0); Monocyte# 0.24 X10^3/uL; Monocyte% 6.1 % (0-10); NRBC Flagged by Analyzer 0 % (0-5); Neutrophil # 2.16 X10^3/uL (2.7-7.7); Neutrophil % 55.1 % (47-70); Platelet Count 157 K/mm3 (150-450); RBC Distribution Width CV 13.6 % (11.6-14.6); RBC Distribution Width SD 46.7 fl (35.1-43.9); Red Blood Count 3.02 M/mm3 (4.2-5.4); White Blood Count 3.9 K/mm3 (4.4-11.0)
--- NOTE | 2024-04-07 07:17 | PN.HOSP_ITS ---
Reason for Visit Reason for Visit: Diagnoses Adult failure to thrive (04/06/24) Subjective Subjective Patient reports feeling little bit better this a.m., still somewhat generally weak and has pain on the left side has a little bit of lower back pain. Reports everything started on Saturday when she went to get off of the scale at dialysis and fell is just been feeling worse since then. Denies any other acute or focal complaints. Objective Data Objective Data Vital Signs: Vital Signs Temp Pulse Resp BP Pulse Ox O2 Del Method 98 F 68 14 104/68 98 Room Air 04/07/24 05:36 04/07/24 05:45 04/07/24 05:36 04/07/24 05:36 04/07/24 05:36 04/07/24 05:36 Oxygen Delivery Method Room Air Weight: 75.2 kg Body Mass Index (BMI) 27.6 Intake & Output: Intake and Output for Last 24 Hours 04/05/24 04/06/24 04/07/24 23:59 23:59 23:59 Intake Total 1000 / 1000 1120 / 1120 Output Total 100 / 100 Balance 1000 / 1000 1020 / 1020 Lab / Micro Data 04/07/24 06:31 04/07/24 06:31 Labs: Laboratory Results - last 24 hr 04/06/24 17:28: WBC 5.3, RBC 3.22 L, Hgb 9.6 L, Hct 30.6 L, MCV 95.0, MCH 29.8, MCHC 31.4 L, RDW Std Deviation 47.7 H, RDW Coeff of Chris 13.6, Plt Count 177, MPV 11.1, Immature Gran % (Auto) 0.600, Neut % (Auto) 70.6 H, Lymph % (Auto) 19.9, [place] % (Auto) 5.8, Eos % (Auto) 2.4, Baso % (Auto) 0.7, Absolute Neuts (auto) 3.8, Absolute Lymphs (auto) 1.06, Nucleated RBC % 0, Sodium 132 L, Potassium 5.4 H, Chloride 96 L, Carbon Dioxide 30.0, Anion Gap 6, BUN 71 H, Creatinine 8.70 H* , Estim Creat Clear Calc 6.93, Est GFR (MDRD) Af Amer 6 L, Est GFR (MDRD) Non-Af 5 L, BUN/Creatinine Ratio 8.2 L, Glucose 327 H, Calcium 9.0, Phosphorus 4.4, Magnesium 2.5, Total Bilirubin 0.40, AST 12 L, ALT 15, Alkaline Phosphatase 136 H, Total Protein 5.9 L, Albumin 2.9 L, Globulin 3.0, Albumin/Globulin Ratio 1.0 04/06/24 21:12: POC Glucose 203 H 04/07/24 06:31: WBC 3.9 L, RBC 3.02 L, Hgb 9.1 L, Hct 28.5 L, MCV 94.4, MCH 30.1, MCHC 31.9 L, RDW Std Deviation 46.7 H, RDW Coeff of Chris 13.6, Plt Count 157, MPV 11.4, Immature Gran % (Auto) 0.500, Neut % (Auto) 55.1, Lymph % (Auto) 32.9, [place] % (Auto) 6.1, Eos % (Auto) 4.6, Baso % (Auto) 0.8, Absolute Neuts (auto) 2.2, Absolute Lymphs (auto) 1.29, Nucleated RBC % 0 Physical Exam Narrative General: Little bit tired but does answer questions appropriately HEENT: Normocephalic Eyes: Anicteric, normal conjunctiva, extraocular movements grossly intact Neck: Supple Respiratory: Somewhat diminished at the bases with normal respiratory effort Cardiovascular: Regular rate GI: Soft, nontender, nondistended Extremities: No edema Musculoskeletal: Moving all extremities Neuro: No overt focal neurological deficits Skin: No rashes appreciated Psych: Cooperative Assessment & Plan Assessment/Plan (1) Debility: PLAN: Plan # Pain/weakness/debility/FTT -Patient with left-sided pain with previous left hip fracture and repair as well as inability to care for self with difficulty ambulating because of the weakness and discomfort -Also has some low back pain since Saturday, lidocaine patch -Given patient's generalized weakness without other identifying etiology we will check UA also check viral swabs -PT/OT -Case management consult -Patient will need placement # Hyperkalemia -5.4 on presentation -Patient did miss dialysis -She has been to telemetry -Nephrology consulted -Repeat potassium 5.3 prior to a.m. dialysis #ESRD on HD -Last dialysis was last -Consult nephrology, follows with Dr. Harrison -Potassium restricted diet -Daily weights, I's and O's #Type 2 diabetes mellitus -Glucose checks and sliding scale insulin -Continue long-acting insulin and Premeal, will adjust as needed based on patient's glucoses #Hypertension -Blood pressure 104/68 this a.m. -Patient's blood pressure dropped to systolic in the 80s during dialysis -Hydralazine on hold and hold parameters for her antihypertensives #GERD -Continue PPI #Depression/anxiety -Continue home medications # History of diabetic foot wounds -Last seen at the wound center 03/24/[address] Solano with podiatry -Supportive care #DVT ppx: Heparin subcu Halley Portillo MD Time spent in the patient's overall evaluation,decision-making process, review of diagnostic data, adjustment of management, discussion with other providers, nursing nursing and ancillary staff involved in patient's care documentation, 37 Minutes Charges/Coding Visit Charges Inpatient E&M: 93440 Subs Hosp L2
[2024-04-07 08:08] LABS: ALB/GLOB Ratio 0.8 RATIO (0.9-2.4); AST(SGOT) 10 U/L (15-37); Alanine Aminotransfer ALT/SGPT 8 U/L (13-56); Albumin, Serum 2.2 g/dL (3.2-5.0); Alkaline Phosphatase 117 U/L (45-117); Anion Gap 10 (5-15); BUN 69 mg/dL (7-18); BUN/Creat Ratio 7.9 RATIO (10-20); Calcium,Total 8.4 mg/dL (8.5-10.1); Chloride 98 mmol/L (98-107); Creatinine, Serum 8.74 mg/dL (0.55-1.02); EST Glomerular Filtration Rate 5 mL/min (>60); Est Glom Filt Rate - Afr Amer 6 mL/min (>60); Estimated Creatinine Clearance 6.86 ml/min; Globulin 2.9 g/dL (2.2-4.2); Glucose 250 mg/dL (74-106); Potassium 5.3 mmol/L (3.5-5.1); Protein, Total 5.1 g/dL (6.4-8.2); Sodium Level 131 mmol/L (136-145)
[2024-04-07] MEDS: 0.9% Normal Saline 1,000 ML IV.SOLN. 1000 ML OPERA.SITE (08:25)
[2024-04-07] MEDS: PureFlow B 2K Dialysis Soln 1 BAG 6 BAG PF (08:26)
[2024-04-07] MEDS: Midodrine HCl 5 MG Tablet 10 MG PO (09:21)
[2024-04-07] MEDS: Heparin Injection (Vial) 5,000 UNIT/ML VIAL 5000 UNIT SC ×2 (11:42→22:45)
[2024-04-07] MEDS: dilTIAZem CD 240 MG Capsule PO (11:42)
[2024-04-07] MEDS: Pantoprazole Sodium 40 MG Tablet PO ×2 (11:43→22:46)
[2024-04-07] MEDS: Clopidogrel Bisulfate 75 MG Tablet PO (11:43)
[2024-04-07] MEDS: Pregabalin 75 MG Capsule PO ×2 (11:46→22:22)
[2024-04-07] MEDS: Insulin Lispro 100 UNIT/ML INSULN.PEN 8 UNIT SC ×2 (11:48→16:00)
[2024-04-07] MEDS: Insulin Lispro 100 UNIT/ML INSULN.PEN SC ×3 (11:49→22:43)
--- NOTE | 2024-04-07 11:59 | CON.PCM.RE_ITS ---
Assessment & Plan Assessment/Plan (1) ESRD (end stage renal disease): PLAN: dialysis TTS, seen on dialysis (2) Generalized weakness: PLAN: chronic debilitation. Usses walker (3) Fall: PLAN: persistent back pain, hip pain, difficulty with ambulation (4) Diabetes mellitus type 2, insulin dependent: (5) Non-pressure chronic ulcer of other part of left lower leg limited to breakdown of skin: (6) Non-pressure chronic ulcer of other part of right lower leg with fat layer exposed: (7) Lymphedema: (8) Chronic anemia: (9) Autonomic dysfunction: HPI Consult Data Date of Consult: 04/09/24 HPI Narrative Reason for Consultation: ESRD HD TTS HPI Narrative: LAYNE VINCENT, is a 63 F with ESRD from diabetes on HD TTS presents with persistent back, hip pain after fall on Saturday. She was seen and evaluated in ED Saturday with no fracture then discharged to home. Patient returned to ED yesterday due to inability to walk due to severe pain. Her last dialysis was last . She was seen today while receiving dialysis in the hospital. She has chronic debility requiring walker at baseline but requires more assistance due to recent fall. She has diabetes with autonomic dysfunction, renal failure, neuropathy, retinopathy. Poor sugar control. She has chronic hypotension requiring midodrine support. [facility] Medical History Colitis Proctitis Ulcer of left ankle Non-pressure chronic ulcer of other part of left foot with fat layer exposed Personal history of colonic polyps Non-pressure chronic ulcer of other part of right foot with fat layer exposed Pressure ulcer of left heel, stage 2 Pain in left foot Osteomyelitis Ulcer of left heel Severe sepsis Hypoglycemia due to insulin Stage 5 chronic kidney disease due to type 2 diabetes mellitus Long-term insulin use Walker as ambulation aid History of renal disease Difficulty chewing History of renal dialysis Accidental fall Depression Uses wheelchair Arthritis Bilateral pleural effusion CKD (chronic kidney disease) stage 4, GFR 15-29 ml/min Anemia Diabetes mellitus with hyperglycemia Transfusion of blood during current hospitalisation Symptomatic anemia Diabetes HTN (hypertension) Closed intertrochanteric fracture of left hip Wears glasses Insulin dependent diabetes mellitus Low iron Excessive bleeding High cholesterol Migraine headache Injury of head and neck Syncope Vomiting Dietary restriction Gastric reflux Non-smoker History of edema History of echocardiogram History of stress test Cardiology follow-up encounter Hx of orthostatic hypotension Chronic pain syndrome Malnutrition Essential hypertension Vertigo Migraine without aura HLD (hyperlipidemia) Post-concussion syndrome History of orthostatic hypotension Home Medications ?Medication ?Instructions ?Recorded ?Last Taken ?Type aspirin 81 mg chewable tablet 81 mg PO QHS HEART HEALTH 12/15/19 11/20/22 History atorvastatin 40 mg tablet 40 mg PO QHS CHOLESTEROL 12/15/19 11/19/22 History insulin lispro 100 unit/mL 8 unit subcut TIDCM diabetes 01/06/22 03/13/23 History subcutaneous pen (Humalog KwikPen (U-100) Insulin) sertraline 50 mg tablet 50 mg PO QHS DEPRESSION 01/06/22 11/20/22 History pregabalin 75 mg capsule 75 mg PO BID #10 caps 05/04/22 11/20/22 Rx calcium acetate(phosphat bind) 667 667 mg PO TID 05/25/22 11/19/22 History mg capsule tramadol 50 mg tablet 50 mg PO Q6H PRN pain 3 days #5 05/30/22 06/03/23 Rx tabs insulin glargine 100 unit/mL (3 10 unit subcut QPM 06/14/22 11/19/22 History mL) subcutaneous pen (Lantus Solostar U-100 Insulin) diltiazem HCl 180 mg 240 mg PO DAILY 11/28/22 Unknown History capsule,extended release 24 hr hydralazine 50 mg tablet 25 mg PO TID 11/28/22 Unknown History flash glucose scanning reader #1 ea 12/07/22 Unknown Rx (FreeStyle Yane 2 [place]) flash glucose sensor (FreeStyle #2 ea 12/07/22 Unknown Rx Yane 2 Sensor kit) pantoprazole 40 mg tablet,delayed 40 mg PO Q12H 12/10/22 Unknown History release clonidine HCl 0.3 mg tablet 0.3 mg PO Q12H 04/17/23 Unknown History meclizine 25 mg tablet 12.5 mg (1/2 x 25 mg) PO BID PRN 10/01/23 Unknown Rx dizziness #10 tabs midodrine 10 mg tablet 10 mg PO 10/18/23 Unknown History clopidogrel 75 mg tablet (Plavix) 75 mg PO DAILY #90 tabs 10/28/23 Unknown Rx polyethylene glycol 3350 17 17 g PO DAILY 04/06/24 Unknown History gram/dose oral powder (ClearLax) Allergy/AdvReac Type Severity Reaction Status Date / Time metformin AdvReac Diarrhea Verified 04/06/24 16:00 Family History Mother Hypertension Father Cancer lymphoma, leukemia Emphysema of lung Hypertension Grandmother Diabetes CVA (cerebral vascular accident) Surgical History S/P arteriovenous (AV) graft repair S/P arteriovenous (AV) fistula repair S/P arteriovenous (AV) fistula creation S/P dialysis catheter insertion History of esophagogastroduodenoscopy (EGD) Hx of colonoscopy History of mandibular surgery History of cholecystectomy Social History household members: significant other housing: [facility] Smoking Status: Never smoker alcohol intake: never substance use type: does not use Physical Exam Const alert and oriented x3 General Appearance: frail Eyes EOMs intact bilaterally Neck supple Resp clear to auscultation bilaterally Cardio regular rate GI non-tender and non-distended Auscultation: normoactive bowel sounds Palpation: soft Extremity General Extremity: AV fistula and edema bilateral lower extremity Details: mild Skin Skin Narrative: chronic venous stasis wounds on legs Neuro moves all extremities Neuro Narrative: gen weakness Psych cooperative Lab / Micro Data 04/09/24 08:05 04/09/24 08:05 Labs: Laboratory Results - last 24 hr 04/06/24 17:28: WBC 5.3, RBC 3.22 L, Hgb 9.6 L, Hct 30.6 L, MCV 95.0, MCH 29.8, MCHC 31.4 L, RDW Std Deviation 47.7 H, RDW Coeff of Chris 13.6, Plt Count 177, MPV 11.1, Immature Gran % (Auto) 0.600, Neut % (Auto) 70.6 H, Lymph % (Auto) 19.9, [place] % (Auto) 5.8, Eos % (Auto) 2.4, Baso % (Auto) 0.7, Absolute Neuts (auto) 3.8, Absolute Lymphs (auto) 1.06, Nucleated RBC % 0, Sodium 132 L, Potassium 5.4 H, Chloride 96 L, Carbon Dioxide 30.0, Anion Gap 6, BUN 71 H, Creatinine 8.70 H* , Estim Creat Clear Calc 6.93, Est GFR (MDRD) Af Amer 6 L, Est GFR (MDRD) Non-Af 5 L, BUN/Creatinine Ratio 8.2 L, Glucose 327 H, Calcium 9.0, Phosphorus 4.4, Magnesium 2.5, Total Bilirubin 0.40, AST 12 L, ALT 15, Alkaline Phosphatase 136 H, Total Protein 5.9 L, Albumin 2.9 L, Globulin 3.0, Albumin/Globulin Ratio 1.0 04/06/24 21:12: POC Glucose 203 H 04/07/24 06:31: WBC 3.9 L, RBC 3.02 L, Hgb 9.1 L, Hct 28.5 L, MCV 94.4, MCH 30.1, MCHC 31.9 L, RDW Std Deviation 46.7 H, RDW Coeff of Chris 13.6, Plt Count 157, MPV 11.4, Immature Gran % (Auto) 0.500, Neut % (Auto) 55.1, Lymph % (Auto) 32.9, [place] % (Auto) 6.1, Eos % (Auto) 4.6, Baso % (Auto) 0.8, Absolute Neuts (auto) 2.2, Absolute Lymphs (auto) 1.29, Nucleated RBC % 0, Sodium 131 L, P otassium 5.3 H, Chloride 98, Carbon Dioxide 24.0, Anion Gap 10, BUN 69 H, C reatinine 8.74 H*, Estim Creat Clear Calc 6.86, Est GFR (MDRD) Af Amer 6 L, Est GFR (MDRD) Non-Af 5 L, BUN/Creatinine Ratio 7.9 L, Glucose 250 H, Calcium 8.4 L, Total Bilirubin 0.30, AST 10 L, ALT 8 L, Alkaline Phosphatase 117, Total Protein 5.1 L, Albumin 2.2 L, Globulin 2.9, Albumin/Globulin Ratio 0.8 L
[2024-04-07 12:36] LABS: Bedside Glucose 172 mg/dL (74-106)
--- NOTE | 2024-04-07 12:51 | CHAPLAIN ---
Type of Pastoral Visit _x__ Initial Visit ___ Follow-up Visit ___ On-call Visit ___ General Patient Visit ___ Spiritual Assessment ___ Family Conference ___ Bereavement ___ Rapid Response ___ Code Blue ___ Other (describe below) Pastoral Care Referral From _x__ Patient ___ Family ___ Nurse ___ Physician ___ Senior C Web Developer ___ Harness Builder ___ Other (describe below) Sacrament/Intervention _x__ Active listening ___ Anointing ___ Jain ___ Bereavement ___ Communion ___ Lore exploration ___ ___ Life review _x__ Prayer ___ Reconciliation ___ Sacrament of Sick ___ Supportive presence ___ Wedding ___ Other (describe below) Pastoral Comments patient explains her health situation and difficulty of dialysis and falls; pt wants to go home but is aware that she may need SNF for a time; pt asks specifically for prayer to get well and to have ability to go home; pt has a fiance of 10 years
[2024-04-07] MEDS: Calcium Acetate 667 MG Capsule PO ×2 (12:53→18:07)
--- NOTE | 2024-04-07 12:54 | CASEMGMT ---
PRIYA SILVA Assessment: Face to Face with pt for initial transition planning/care coordination assessment. PRIYA SILVA introduced self and role at [facility], pt voices understanding and consents to assessment. Pt is A&O x4 and answers all questions appropriately at this time. Pt lying in bed in no distress. Care providers, pharmacy, and demographics verified/updated. Strata: 3 Admitting Dx: Adult FTT, recent fall, ESRD w/hyperkalemia PCP: Zach Specialists: Russ, Podiatry; Harrison, Nephrology Preferred Pharmacy: [facility] Insurance: Amanda Clayton Prescription Benefit: yes LNOK: Significant Other, Karri Living Arrangements: Pt lives with S/O in a 1 story home with 3 steps to enter, does not have handrails. Working with waiver to get handrails in place. ADLs: Pt states needs assistance at baseline, S/O helps pt. Transportation: Pt uses [id number] and [employer] for transportation. DME: Walker, cane, shower bench, grab bars, glucometer and supplies. HHC/SNF: Previously used [facility] SN[facility], Used [facility] and [facility] in the past. Pt preference is to go home with HHC services. Pt denies wanting a list and asked for [facility]. Therapy has not worked with Pt yet, PRIYA SILVA informed pt will follow therapy recommendations to see if HHC is a safe option for Pt at time of DC. Notified SW and PRIYA SILVA on floor. Pt states no further concerns/needs. SW/CM to follow. Advised pt to ask CM if any further question/concerns/needs arise, voices understanding. Plan: TBD, follow therapy for recommendations. Carine POWERS CM
--- NOTE | 2024-04-07 13:46 | CASEMGMT ---
Social Work SW spoke w/pt in regard to discharge plan. Pt did just work w/therapy, SW inquired how it went, pt states, painful. SW inquired if she thought she would be able to manage at home, pt is not sure. We discussed the option of going somewhere for rehab. SW provided to pt a list from [facility] of long term facilities in network w/pt's insurance, in pt's preferred geographic area and complete w/quality and resource use data. Pt is agreeable to a referral to [facility]. SW explained we can make referral, and if she is doing better we can always change the plan to home w/home health care. Pt agreeable to this plan. SW will make referral to [facility]. VICENTE Vicente
--- NOTE | 2024-04-07 15:18 | CASEMGMT ---
Addendum entered by Kathie Manuel 04/07/24 16:13: [facility] has accepted and will submit for precert. Kathie Manuel DC Planning Asst. Original Note: Discharge Planning Referral sent to [facility] via [facility]. Kathie Manuel DC Planning Asst.
--- NOTE | 2024-04-07 15:47 | CASEMGMT ---
PRIYA SILVA into Pt room, Pt S/O Karri in the room sitting next to her. Pt agreeable to discussing care with Karri present. Pt gets Dialysis through [facility] on and Saturday. Chair time is at 10am. Pt told PRIYA SILVA she has a pillowcase cleaner through [facility], her name is Alisha. Notified ASHANTI.
[2024-04-07] MEDS: Lidocaine 5% Patch 1 PATCH TOPICAL (15:57)
[2024-04-07] MEDS: traMADol 50 MG Tablet PO ×2 (15:58→22:22)
[2024-04-07 16:22] LABS: Bedside Glucose 151 mg/dL (74-106)
[2024-04-07] MEDS: Insulin Glargine-YFGN 100 UNIT/ML Pen 10 UNIT SC (22:42)
[2024-04-07] MEDS: Aspirin 81 MG TAB.CHEW PO (22:44)
[2024-04-07] MEDS: cloNIDine HCl 0.1 MG Tablet 0.3 MG PO (22:44)
[2024-04-07] MEDS: Atorvastatin Calcium 40 MG Tablet PO (22:45)
[2024-04-07] MEDS: Sertraline 50 MG Tablet PO (22:45)
[2024-04-07] MEDS: 0.9% Saline Lock 10 ML Syringe IV (22:47)
[2024-04-07] MEDS: MELATONIN 3 MG TABLET PO (23:00)
[2024-04-08] VITALS (7 sets, daily range): BP systolic 81–97; BP diastolic 51–65; PULSE 57–66; RESP 14–16; TEMP 36.2–36.9; O2SAT 93–99; BMI 28.8
[2024-04-08 00:17] LABS: Bedside Glucose 164 mg/dL (74-106)
--- NOTE | 2024-04-08 07:49 | PCM.PN.BLA ---
Progress Note BP low, stop clonidine, diltiazem, hydralazine. Midodrine for BP support on dialysis and prn. Dialysis yesterday with low BP throughout treatment. 1200cc fluid removed. Transferred to PCU. Await disposition.
[2024-04-08 07:57] LABS: Hematocrit 28.1 % (37-47); Hemoglobin 8.8 g/dL (12.0-15.0); Mean Corp Hgb Conc 31.3 g/dL (32-36); Mean Corpuscular Hgb 29.6 pg (27.0-32.0); Mean Corpuscular Volume 94.6 fL (81-99); Mean Platelet Vol. 11.4 fl (6.2-12.0); Platelet Count 180 K/mm3 (150-450); RBC Distribution Width CV 13.9 % (11.6-14.6); RBC Distribution Width SD 47.5 fl (35.1-43.9); Red Blood Count 2.97 M/mm3 (4.2-5.4); White Blood Count 4.1 K/mm3 (4.4-11.0)
--- NOTE | 2024-04-08 08:01 | CASEMGMT ---
[facility] has obtained auth to admit. SW updated. Kathie Manuel DC Planning Asst.
--- NOTE | 2024-04-08 08:21 | PCM.PN.HOSP ---
Reason for Visit Reason for Visit: Diagnoses Other malaise (04/06/24) Adult failure to thrive (04/06/24) Subjective Subjective Patient still sore on her neck, back, left leg. No point tenderness patient unable localize any specific pain but reports that it aches and hurts all over those areas. Objective Data Objective Data Vital Signs: Vital Signs Temp Pulse Resp BP Pulse Ox O2 Del Method 98.2 F 58 L 16 82/55 L 94 Room Air 04/08/24 06:10 04/08/24 06:10 04/08/24 06:10 04/08/24 06:10 04/08/24 06:10 04/08/24 06:10 Oxygen Delivery Method Room Air Weight: 78.5 kg Body Mass Index (BMI) 28.8 Intake & Output: Intake and Output for Last 24 Hours 04/06/24 04/07/24 04/08/24 23:59 23:59 23:59 Intake Total 1000 / 1000 1600 / 1600 Output Total 1300 / 1300 Balance 1000 / 1000 300 / 300 Lab / Micro Data 04/08/24 06:50 04/08/24 06:50 Labs: Laboratory Results - last 24 hr 04/07/24 11:47: POC Glucose 172 H 04/07/24 15:59: POC Glucose 151 H 04/07/24 22:41: POC Glucose 164 H 04/08/24 06:50: WBC 4.1 L, RBC 2.97 L, Hgb 8.8 L, Hct 28.1 L, MCV 94.6, MCH 29.6, MCHC 31.3 L, RDW Std Deviation 47.5 H, RDW Coeff of Chris 13.9, Plt Count 180, MPV 11.4 Micro: Microbiology 04/07/24 15:46 Mucosa - Nasopharyngeal Respiratory Panel (PCR) - Final 04/07/24 15:30 Mucosa - Nose Coronavirus COVID-19 PCR - Final Physical Exam Narrative General: Tired but does wake up and answer questions HEENT: Normocephalic Eyes: Anicteric Neck: Supple Respiratory: Somewhat diminished at the bases with normal respiratory effort Cardiovascular: Regular rate GI: Soft, nontender Extremities: No significant pitting edema Musculoskeletal: Moving all extremities Neuro: No overt focal neurological deficits Skin: No rashes appreciated Psych: Cooperative Assessment & Plan Assessment/Plan (1) Debility: PLAN: Plan # Pain/weakness/debility/FTT -Patient with left-sided pain with previous left hip fracture and repair as well as inability to care for self with difficulty ambulating because of the weakness and discomfort -Also has some low back pain since Saturday, lidocaine patch -Given patient's generalized weakness without other identifying etiology we will check UA also check viral swabs -PT/OT -Case management consult -Patient will need placement -04/08: Patient asked if she had any fractures. Hip/pelvis/femur x-rays on presentation without evidence of fracture. Additionally her pain is diffuse including both sides of neck, lower back and left leg with some diffuse aching, no point tenderness or localized pain that would suggest area to perform CT. Additionally patient seems quite tired again today, she is on 75 twice daily of Lyrica despite being on hemodialysis and suspect this is the culprit, will hold Lyrica and patient to be dialyzed tomorrow. Is maintaining her airway and wakes up and answers questions appropriately with no acute management necessary. Will attempt to manage pain while minimizing sedation and hypotension as able. # Hyperkalemia -5.4 on presentation -Patient did miss dialysis -She has been to telemetry -Nephrology consulted -Repeat potassium 5.3 prior to a.m. dialysis -04/08: Resolved #ESRD on HD -Last dialysis was last -Consult nephrology, follows with Dr. Terry -Potassium restricted diet -Daily weights, I's and O's -04/08: Patient for dialysis again tomorrow #Type 2 diabetes mellitus -Glucose checks and sliding scale insulin -Continue long-acting insulin and Premeal, will adjust as needed based on patient's glucoses -04/08: Patient's glucoses downtrending, will decrease long-acting insulin to avoid hypoglycemia #Hypertension -Blood pressure 104/68 this a.m. -Patient's blood pressure dropped to systolic in the 80s during dialysis -Hydralazine on hold and hold parameters for her antihypertensives -04/08: Blood pressure improved yesterday in the evening and she received her Cardizem and clonidine resulting in low blood pressure again this a.m. Blood pressure medications held and blood pressure improving. Will continue to hold Chronic medical problems: #GERD -Continue PPI #Depression/anxiety -Continue home medications # History of diabetic foot wounds -Last seen at the wound center 03/24/[address] Solano with podiatry -Supportive care #DVT ppx: Heparin subcu Halley Portillo MD Time spent in the patient's overall evaluation,decision-making process, review of diagnostic data, adjustment of management, discussion with other providers, nursing nursing and ancillary staff involved in patient's care documentation, 40 Minutes Charges/Coding Visit Charges Inpatient E&M: 41580 Subs Hosp L2
[2024-04-08] MEDS: Calcium Acetate 667 MG Capsule PO (08:33)
[2024-04-08] MEDS: Heparin Injection (Vial) 5,000 UNIT/ML VIAL 5000 UNIT SC ×2 (08:33→22:08)
[2024-04-08] MEDS: Clopidogrel Bisulfate 75 MG Tablet PO (08:33)
[2024-04-08] MEDS: Pantoprazole Sodium 40 MG Tablet PO ×2 (08:34→22:08)
[2024-04-08] MEDS: Lidocaine 5% Patch 1 PATCH TOPICAL (08:35)
[2024-04-08 08:42] LABS: Anion Gap 7 (5-15); BUN 46 mg/dL (7-18); BUN/Creat Ratio 7.3 RATIO (10-20); Calcium,Total 8.7 mg/dL (8.5-10.1); Chloride 100 mmol/L (98-107); Creatinine, Serum 6.29 mg/dL (0.55-1.02); EST Glomerular Filtration Rate 7 mL/min (>60); Est Glom Filt Rate - Afr Amer 9 mL/min (>60); Estimated Creatinine Clearance 9.73 ml/min; Glucose 133 mg/dL (74-106); Potassium 4.8 mmol/L (3.5-5.1); Sodium Level 134 mmol/L (136-145)
[2024-04-08] MEDS: Pregabalin 75 MG Capsule PO (08:42)
[2024-04-08 08:56] LABS: Bedside Glucose 107 mg/dL (74-106)
[2024-04-08] MEDS: Folic Acid/Vitamin B Comp W-C 1 Capsule 1 CAP PO (10:25)
--- NOTE | 2024-04-08 11:49 | CASEMGMT ---
ASHANTI met with patient. Introduced self and role at [facility]. ASHANTI let patient know that [facility] said they can take her when she is ready. Patient thanked ASHANTI for the update. Plan: d/c to [facility] pending pre-cert. Heike BENNETT
[2024-04-08 11:59] LABS: Bedside Glucose 161 mg/dL (74-106)
[2024-04-08 16:26] LABS: Bedside Glucose 223 mg/dL (74-106)
[2024-04-08] MEDS: Insulin Lispro 100 UNIT/ML INSULN.PEN 8 UNIT SC (17:28)
[2024-04-08] MEDS: Insulin Lispro 100 UNIT/ML INSULN.PEN SC (17:28)
[2024-04-08] MEDS: Aspirin 81 MG TAB.CHEW PO (22:08)
[2024-04-08] MEDS: Atorvastatin Calcium 40 MG Tablet PO (22:08)
[2024-04-08] MEDS: Sertraline 50 MG Tablet PO (22:09)
[2024-04-08] MEDS: 0.9% Saline Lock 10 ML Syringe IV (22:20)
[2024-04-08 22:50] LABS: Bedside Glucose 88 mg/dL (74-106)
[2024-04-08 22:50] LABS: Bedside Glucose 84 mg/dL (74-106)
[2024-04-09] VITALS (12 sets, daily range): BP systolic 92–232; BP diastolic 56–91; PULSE 71–87; RESP 14–20; TEMP 36.6–36.9; O2SAT 94–98; BMI 28.9; BMI 27.8
[2024-04-09 02:06] LABS: Bedside Glucose 88 mg/dL (74-106)
[2024-04-09] MEDS: Midodrine HCl 5 MG Tablet 10 MG PO (08:12)
[2024-04-09] MEDS: PureFlow B 2K Dialysis Soln 1 BAG 6 BAG PF (08:15)
[2024-04-09] MEDS: 0.9% Normal Saline 1,000 ML IV.SOLN. 1000 ML OPERA.SITE (08:15)
[2024-04-09 08:25] LABS: Hematocrit 28.1 % (37-47); Hemoglobin 9.1 g/dL (12.0-15.0); Mean Corp Hgb Conc 32.4 g/dL (32-36); Mean Corpuscular Hgb 30.7 pg (27.0-32.0); Mean Corpuscular Volume 94.9 fL (81-99); Mean Platelet Vol. 11.3 fl (6.2-12.0); Platelet Count 150 K/mm3 (150-450); RBC Distribution Width SD 48.1 fl (35.1-43.9); Red Blood Count 2.96 M/mm3 (4.2-5.4); White Blood Count 4.5 K/mm3 (4.4-11.0)
[2024-04-09 08:37] LABS: Anion Gap 9 (5-15); BUN 49 mg/dL (7-18); BUN/Creat Ratio 7.5 RATIO (10-20); Calcium,Total 8.5 mg/dL (8.5-10.1); Chloride 100 mmol/L (98-107); Creatinine, Serum 6.55 mg/dL (0.55-1.02); EST Glomerular Filtration Rate 7 mL/min (>60); Est Glom Filt Rate - Afr Amer 8 mL/min (>60); Estimated Creatinine Clearance 9.36 ml/min; Glucose 162 mg/dL (74-106); Potassium 5.1 mmol/L (3.5-5.1); Sodium Level 132 mmol/L (136-145)
--- NOTE | 2024-04-09 08:58 | PCM.PN.REN ---
Subjective Subjective seen on dialysis, still with back pain, weakness requiring 2 ppl assist. ECF placement pending. Objective Data Objective Data Vital Signs: Vital Signs Temp Pulse Resp BP Pulse Ox O2 Del Method 98.4 F 86 15 101/63 95 Nasal Cannula 04/09/24 07:40 04/09/24 08:40 04/09/24 08:40 04/09/24 08:40 04/09/24 08:10 04/09/24 08:40 Oxygen Delivery Method Nasal Cannula Weight: 78.8 kg Body Mass Index (BMI) 28.9 Intake & Output: Intake and Output for Last 24 Hours 04/07/24 04/08/24 04/09/24 23:59 23:59 23:59 Intake Total 1600 / 1600 762 / 762 Output Total 1300 / 1300 Balance 300 / 300 762 / 762 Lab / Micro Data 04/09/24 08:05 04/09/24 08:05 Labs: Laboratory Results - last 24 hr 04/08/24 11:30: POC Glucose 161 H 04/08/24 16:03: POC Glucose 223 H 04/08/24 19:52: POC Glucose 88 04/08/24 20:47: POC Glucose 84 04/09/24 01:42: POC Glucose 88 04/09/24 08:05: WBC 4.5, RBC 2.96 L, Hgb 9.1 L, Hct 28.1 L, MCV 94.9, MCH 30.7, MCHC 32.4, RDW Std Deviation 48.1 H, RDW Coeff of Chris 14.0, Plt Count 150, MPV 11.3, Sodium 132 L, Potassium 5.1, Chloride 100, Carbon Dioxide 24.0, Anion Gap 9, BUN 49 H, Creatinine 6.55 H, Estim Creat Clear Calc 9.36, Est GFR (MDRD) Af Amer 8 L, Est GFR (MDRD) Non-Af 7 L, BUN/Creatinine Ratio 7.5 L, Glucose 162 H, Calcium 8.5 Micro: Microbiology 04/07/24 15:46 Mucosa - Nasopharyngeal Respiratory Panel (PCR) - Final 04/07/24 15:30 Mucosa - Nose Coronavirus COVID-19 PCR - Final Physical Exam Const alert and oriented x3 General Appearance: frail Resp clear to auscultation bilaterally Cardio regular rate GI non-tender and non-distended Auscultation: normoactive bowel sounds Palpation: soft Extremity Extremity Narrative: generalized weakness General Extremity: AV fistula and edema bilateral lower extremity Details: mild Skin Skin Narrative: chronic venous stasis wounds on legs Neuro moves all extremities Neuro Narrative: gen weakness Psych cooperative Assessment & Plan Assessment/Plan (1) ESRD (end stage renal disease): PLAN: dialysis today and TTS. Stop potassium and magnesium supplement in ESRD (2) Generalized weakness: PLAN: chronic debilitation. Usses walker at home, ECF placement for rehab (3) Fall: PLAN: persistent back pain, hip pain, difficulty with ambulation ECF placement in progress (4) Hypotension: PLAN: stop all BP meds and monitor (5) Diabetes mellitus type 2, insulin dependent: PLAN: with nephropathy, neuropathy, retinopathy (6) Lymphedema: (7) Chronic anemia: PLAN: hgb stable (8) Autonomic dysfunction: PLAN: pressure support with midodrine on dialysis
[2024-04-09] MEDS: Calcium Acetate 667 MG Capsule PO ×2 (09:24→12:50)
[2024-04-09] MEDS: traMADol 50 MG Tablet PO (09:53)
--- NOTE | 2024-04-09 10:39 | CASEMGMT ---
Patient was asking if she would be able to go home with home health. SW reviewed therapy notes and patient is an assist of 2 people. SW told patient right now it doesn't appear that she would be safe going home and it is strongly recommended she go somewhere for short term rehab. SW suggested [facility] go to [facility] at least for a little bit to get stronger before going home. Patient was agreeable. Plan: d/c to [facility] under skilled level of care. Heike Breaux DIRECTOR SAFETY COUNCILMeg BENNETT
--- NOTE | 2024-04-09 11:31 | PCM.TXEXTCAR ---
Diet Diet Order/Speech Therapy: 04/06/24 20:28 Diet: Cardiac: Calorie-Controlled Food consistency:: Regular Liquid Consistency:: Regular/Thin Dietary Modifications:: Potassium Restricted How many daily calories?: 1800 calorie Routine Orders/Code Status Suppository Type: Dulcolax 10mg Suppository Frequency: Daily PRN Code Status: Full Code DC O2, CPAP, BIPAP needs Home O2 Discharge instructions: No Therapies Physical Therapy: Eval and Treat Occupational Therapy: Eval and Treat Problem/Diagnosis (1) ESRD (end stage renal disease): Status: Acute Code(s): N18.6 - End stage renal disease (2) Generalized weakness: Status: Acute Code(s): R53.1 - Weakness (3) Fall: Status: Acute Code(s): W19.XXXA - Unspecified fall, initial encounter (4) Hypotension: Status: Acute Code(s): I95.9 - Hypotension, unspecified (5) Diabetes mellitus type 2, insulin dependent: Status: Acute Code(s): E11.9 - Type 2 diabetes mellitus without complications; Z79.4 - group home (current) use of insulin (6) Lymphedema: Status: Acute Code(s): I89.0 - Lymphedema, not elsewhere classified (7) Chronic anemia: Status: Chronic Code(s): D64.9 - Anemia, unspecified Comment: Iron deficiency anemia (8) Autonomic dysfunction: Status: Acute Code(s): G90.9 - Disorder of the autonomic nervous system, unspecified Plan # Pain/weakness/debility/FTT # Hyperkalemia- resolved #ESRD on HD #Type 2 diabetes mellitus #Hypertension #GERD #Depression/anxiety # History of diabetic foot wounds 63-year-old female with history as above presented ED 04/06/2024 with debility and weakness. She had a fall on Saturday that was mechanical and since then she has just been feeling weak and generally unwell with some worsening of her chronic left leg pain. In ED plain films were negative for any acute process but given she was generally weak hospitalist contacted for admission. Patient did have 5.4 potassium on presentation because she had missed dialysis due to feeling weak. She received dialysis 04/07. Patient work with therapy and was recommended she be placed which patient was agreeable to. During her admission blood pressure dropped when she was on dialysis and hydralazine was held and clonidine and Cardizem had holding parameters placed. Blood pressure improved after dialysis and patient met parameters and was given diltiazem and also then received her clonidine at bedtime due to adequate blood pressure, ultimately this resulted in hypotension in the a.m. so all of her blood pressure medications were held. Blood pressure improved throughout the day and given it was felt her hypotension was iatrogenic with no other etiology identified and it improved by withdrawing offending agents patient was felt stable for discharge to SNF with holding home blood pressure medications. Additionally day prior to discharge patient was more tired and had some difficulty staying awake, reviewed her medication list and she was on Lyrica 75 mg twice daily which is higher than the recommended dose for dialysis so this was held and patient improved with holding this and dialysis. Would recommend resuming this but at 75 mg and if any further problems with excessive sedation discontinue entirely. On day of discharge patient is still sore in her neck and lower back and left leg (she does follow with Dr. Steel for chronic component of pain) but she does feel better than yesterday. No new or acute complaints. Patient stable for discharge. Discharge instructions as followed: DISCHARGE INSTRUCTIONS PLEASE READ *Please take this with you to your next doctors appointment* -Your blood pressure medications and been held as your blood pressure has been running low. He will need to monitor blood pressures upon discharge and your medications can be added back at the discretion of her treating physician -Please continue dialysis as previously scheduled -Lyrica was decreased due to it being over the recommended dose for dialysis -Please call your primary care provider's office upon discharge to schedule a hospital follow up within 1 week. -For any concerning signs or symptoms please call 911 or proceed to the nearest emergency department Allergies/Procedures Done in Hospital Allergies metformin Adverse Reaction (Verified 04/06/24 16:00) Diarrhea Type of Care/Length of Stay Estimated LOS: Convalescent Care Less Than 30 days Type of Care Needed: Skilled Rehab Potential: Fair Prognosis: Fair Additional Orders/Day of Discharge Day of Discharge: 04/09/24 Dietary and Speech Recommendations Dietitian Recommendations/Changes: Continue cardiac, 1800 calorie controlled/consistent carbohydrate diet with potassium restriction. Pt dislikes PO nepro, offer ONS only if oral intake is established inadequate at meals. Monitor need for fluid restriction. Will monitor weight, as available. Reviewed and approved by Dorota Abdullahi, , RDN, LD. Discharge Plan Admission Admit Date/Time: 04/06/24 19:11 Primary Reason for Your Visit: Fall, weakness Attending Provider: Halley Portillo Primary Care Provider: Dennys Serrano Consulting Providers: Rose Bob; Aubree Terry Instructions Patient Instructions: ED Fall Prevention Additional Instructions / Restrictions: DISCHARGE INSTRUCTIONS PLEASE READ *Please take this with you to your next doctors appointment* -Your blood pressure medications and been held as your blood pressure has been running low. He will need to monitor blood pressures upon discharge and your medications can be added back at the discretion of her treating physician -Please continue dialysis as previously scheduled -Lyrica decreased to 75 mg daily -Please call your primary care provider's office upon discharge to schedule a hospital follow up within 1 week. -For any concerning signs or symptoms please call 911 or proceed to the nearest emergency department Discharge Orders/Prescriptions Prescriptions: Continued (DME) FreeStyle Yane 2 [place] Misc See Rx Instructions .Route Qty: 1 0RF Rx Instructions: As directed (DME) FreeStyle Yane 2 Sensor Kit See Rx Instructions .Route Qty: 2 6RF Rx Instructions: As directed pantoprazole 40 mg tablet,delayed release (DR/EC) 40 mg PO Q12H midodrine 10 mg tablet 10 mg PO Patient Comments: pt takes at dialysis 2 times when there. atorvastatin 40 MG tablet 40 mg PO QHS aspirin 81 MG tablet,chewable 81 mg PO QHS insulin lispro [Humalog KwikPen Insulin] 100 unit/mL insulin pen 8 unit subcut TIDCM Rx Instructions: with meals sertraline 50 mg tablet 50 mg PO QHS calcium acetate(phosphat bind) 667 mg Capsule 667 mg PO TID meclizine 25 mg tablet 12.5 mg PO BID PRN (Reason: dizziness) Qty: 10 0RF polyethylene glycol 3350 [ClearLax] 17 gram/dose powder 17 g PO DAILY tramadol 50 mg tablet 50 mg PO Q6H PRN (Reason: pain) 3 Days Qty: 5 0RF clopidogrel [Plavix] 75 mg tablet 75 mg PO DAILY Qty: 90 0RF Changed pregabalin 75 mg Capsule 75 mg PO DAILY 3 Days Qty: 10 0RF insulin glargine [Lantus Solostar U-100 Insulin] 100 unit/mL (3 mL) Insulin Pen 5 unit SUBCUT QPM Qty: 15 0RF Discontinued hydralazine 50 mg tablet 25 mg PO TID diltiazem HCl 180 mg capsule,extended release 24hr 240 mg PO DAILY clonidine HCl 0.3 mg tablet 0.3 mg PO Q12H Referrals / Follow Up: Dennys Serrano MD [Primary Care Provider] - Disposition Disposition (needs filled in before D/C Order can be placed): [facility]
[2024-04-09] MEDS: Lidocaine 5% Patch 1 PATCH TOPICAL (11:39)
[2024-04-09] MEDS: Heparin Injection (Vial) 5,000 UNIT/ML VIAL 5000 UNIT SC (11:39)
[2024-04-09] MEDS: Folic Acid/Vitamin B Comp W-C 1 Capsule 1 CAP PO (11:39)
[2024-04-09] MEDS: Clopidogrel Bisulfate 75 MG Tablet PO (11:39)
[2024-04-09] MEDS: Pantoprazole Sodium 40 MG Tablet PO (11:40)
--- NOTE | 2024-04-09 13:13 | PCM.DC.SUM ---
Providers Date of Admission: 04/06/24 Date of Discharge: 04/09/24 Primary Care Physician: Dr. Dennys Serrano MD Consultations 04/06/24 20:28 Consult: Nephrology Routine Consulting Provider: Aubree Terry Reason for Consult: ESRD on HD, hyperkalemia/mild EMERGENT Consult: No MD Notified: Yes Date Notified: 04/06/24 Time Notified: 19:13 Method of Notification: Answering Service Reason For Visit: ADULT FTT, RECENT FALL, ESRD W/ HYPERKALEMIA Diagnosis Discharge Diagnosis (1) ESRD (end stage renal disease): Status: Acute Code(s): N18.6 - End stage renal disease (2) Generalized weakness: Status: Acute Code(s): R53.1 - Weakness (3) Fall: Status: Acute Code(s): W19.XXXA - Unspecified fall, initial encounter (4) Hypotension: Status: Acute Code(s): I95.9 - Hypotension, unspecified (5) Diabetes mellitus type 2, insulin dependent: Status: Acute Code(s): E11.9 - Type 2 diabetes mellitus without complications; Z79.4 - [employer] (current) use of insulin (6) Lymphedema: Status: Acute Code(s): I89.0 - Lymphedema, not elsewhere classified (7) Chronic anemia: Status: Chronic Code(s): D64.9 - Anemia, unspecified (8) Autonomic dysfunction: Status: Acute Code(s): G90.9 - Disorder of the autonomic nervous system, unspecified Plan # Pain/weakness/debility/FTT # Hyperkalemia- resolved #ESRD on HD #Type 2 diabetes mellitus #Hypertension #GERD #Depression/anxiety # History of diabetic foot wounds Medications at Discharge Home Medications aspirin 81 mg chewable tablet 81 mg PO QHS HEART HEALTH 12/15/19 atorvastatin 40 mg tablet 40 mg PO QHS CHOLESTEROL 12/15/19 insulin lispro 100 unit/mL subcutaneous pen (Humalog KwikPen (U-100) Insulin) 8 unit subcut TIDCM diabetes 01/06/22 sertraline 50 mg tablet 50 mg PO QHS DEPRESSION 01/06/22 calcium acetate(phosphat bind) 667 mg capsule 667 mg PO TID 05/25/22 flash glucose scanning reader (Estadeboda Yane 2 [place]) #1 ea 12/07/22 flash glucose sensor (FreeStyle Yane 2 Sensor kit) #2 ea 12/07/22 pantoprazole 40 mg tablet,delayed release 40 mg PO Q12H 12/10/22 meclizine 25 mg tablet 12.5 mg (1/2 x 25 mg) PO BID PRN dizziness #10 tabs 10/01/23 midodrine 10 mg tablet 10 mg PO 10/18/23 clopidogrel 75 mg tablet (Plavix) 75 mg PO DAILY #90 tabs 10/28/23 polyethylene glycol 3350 17 gram/dose oral powder (ClearLax) 17 g PO DAILY 04/06/24 insulin glargine 100 unit/mL (3 mL) subcutaneous pen (Lantus Solostar U-100 Insulin) 5 unit (0.05 mL) subcut QPM #15 mL 04/09/24 pregabalin 75 mg capsule 75 mg PO DAILY 3 days #10 caps 04/09/24 tramadol 50 mg tablet 50 mg PO Q6H PRN pain 3 days #5 tabs 04/09/24 Hospital Course Procedures - (HD) Summary of Care Provided Minutes Spent on Discharge: 33 Hospital Course: # Pain/weakness/debility/FTT # Hyperkalemia- resolved #ESRD on HD #Type 2 diabetes mellitus #Hypertension #GERD #Depression/anxiety # History of diabetic foot wounds 63-year-old female with history as above presented [facility] ED 04/06/2024 with debility and weakness. She had a fall on Saturday that was mechanical and since then she has just been feeling weak and generally unwell with some worsening of her chronic left leg pain. In ED plain films were negative for any acute process but given she was generally weak hospitalist contacted for admission. Patient did have 5.4 potassium on presentation because she had missed dialysis due to feeling weak. She received dialysis 04/07. Patient work with therapy and was recommended she be placed which patient was agreeable to. During her admission blood pressure dropped when she was on dialysis and hydralazine was held and clonidine and Cardizem had holding parameters placed. Blood pressure improved after dialysis and patient met parameters and was given diltiazem and also then received her clonidine at bedtime due to adequate blood pressure, ultimately this resulted in hypotension in the a.m. so all of her blood pressure medications were held. Blood pressure improved throughout the day and given it was felt her hypotension was iatrogenic with no other etiology identified and it improved by withdrawing offending agents patient was felt stable for discharge to SNF with holding home blood pressure medications. Additionally day prior to discharge patient was more tired and had some difficulty staying awake, reviewed her medication list and she was on Lyrica 75 mg twice daily which is higher than the recommended dose for dialysis so this was held and patient improved with holding this and dialysis. Would recommend resuming this but at 75 mg and if any further problems with excessive sedation discontinue entirely. On day of discharge patient is still sore in her neck and lower back and left leg (she does follow with Dr. Steel for chronic component of pain) but she does feel better than yesterday. No new or acute complaints. Patient stable for discharge. Discharge instructions as followed: DISCHARGE INSTRUCTIONS PLEASE READ *Please take this with you to your next doctors appointment* -Your blood pressure medications and been held as your blood pressure has been running low. He will need to monitor blood pressures upon discharge and your medications can be added back at the discretion of her treating physician -Please continue dialysis as previously scheduled -Lyrica was decreased due to it being over the recommended dose for dialysis -Please call your primary care provider's office upon discharge to schedule a hospital follow up within 1 week. -For any concerning signs or symptoms please call 911 or proceed to the nearest emergency department Physical Exam Narrative General: Alert, oriented, no apparent distress HEENT: normocephalic Eyes: Anicteric, normal conjunctiva, extraocular movements grossly intact Neck: Supple Respiratory: Clear to auscultation bilaterally, normal respiratory effort Cardiovascular: Regular rate GI: Soft, nontender, nondistended Extremities: No significant pitting edema Musculoskeletal: Moving all extremities Neuro: No overt focal neurological deficits Skin: No rashes appreciated Psych: Cooperative Weight / BMI Weight Weight: 75.8 kg Body Mass Index (BMI) 27.8 ABG / Lab / Microbiology Data 04/09/24 08:05 04/09/24 08:05 Laboratory: Laboratory Results - last 24 hr 04/08/24 19:52: POC Glucose 88 04/08/24 20:47: POC Glucose 84 04/09/24 01:42: POC Glucose 88 04/09/24 08:05: WBC 4.5, RBC 2.96 L, Hgb 9.1 L, Hct 28.1 L, MCV 94.9, MCH 30.7, MCHC 32.4, RDW Std Deviation 48.1 H, RDW Coeff of Chris 14.0, Plt Count 150, MPV 11.3, Sodium 132 L, Potassium 5.1, Chloride 100, Carbon Dioxide 24.0, Anion Gap 9, BUN 49 H, Creatinine 6.55 H, Estim Creat Clear Calc 9.36, Est GFR (MDRD) Af Amer 8 L, Est GFR (MDRD) Non-Af 7 L, BUN/Creatinine Ratio 7.5 L, Glucose 162 H, Calcium 8.5 Microbiology: Microbiology 04/07/24 15:46 Mucosa - Nasopharyngeal Respiratory Panel (PCR) - Final 04/07/24 15:30 Mucosa - Nose Coronavirus COVID-19 PCR - Final D/C Instructions DC O2, CPAP, BIPAP Needs Home O2 Discharge instructions: No Meaningful Use Info Meaningful Use Meaningful Use Diagnoses (Choose all that apply): None applicable Ischemic Stroke Statin Dosing Therapy Reference: STATIN DOSE THERAPY REFERENCE: * Patients > 75 years receive moderate or high dose statin therapy. * Patients 75 years or YOUNGER should receive HIGH intensity statin dose unless contraindicated. You will be required to document reason for non-treatment if statin daily dose does not meet guidelines. HIGH DOSE STATIN THERAPY DAILY Atorvastatin > than or = to 40 mg Rosuvastatin > than or = to 20 mg Amlodipine + Atorvastatin > than or = to 2.5/40 mg Ezetimibe + Simvastatin 10/80 mg Simvastatin 80mg Discharge Plan Admission Admit Date/Time: 04/06/24 19:11 Primary Reason for Your Visit: Fall, weakness Attending Provider: Halley Portillo Primary Care Provider: Dennys Serrano Consulting Providers: Rose Bob; Aubree Terry Instructions Patient Instructions: ED Fall Prevention Additional Instructions / Restrictions: DISCHARGE INSTRUCTIONS PLEASE READ *Please take this with you to your next doctors appointment* -Your blood pressure medications and been held as your blood pressure has been running low. He will need to monitor blood pressures upon discharge and your medications can be added back at the discretion of her treating physician -Please continue dialysis as previously scheduled -Lyrica decreased to 75 mg daily -Please call your primary care provider's office upon discharge to schedule a hospital follow up within 1 week. -For any concerning signs or symptoms please call 911 or proceed to the nearest emergency department Discharge Orders/Prescriptions Prescriptions: Continued (DME) FreeStyle Yane 2 [place] Misc See Rx Instructions .Route Qty: 1 0RF Rx Instructions: As directed (DME) FreeStyle Yane 2 Sensor Kit See Rx Instructions .Route Qty: 2 6RF Rx Instructions: As directed pantoprazole 40 mg tablet,delayed release (DR/EC) 40 mg PO Q12H midodrine 10 mg tablet 10 mg PO Patient Comments: pt takes at dialysis 2 times when there. atorvastatin 40 MG tablet 40 mg PO QHS aspirin 81 MG tablet,chewable 81 mg PO QHS insulin lispro [Humalog KwikPen Insulin] 100 unit/mL insulin pen 8 unit subcut TIDCM Rx Instructions: with meals sertraline 50 mg tablet 50 mg PO QHS calcium acetate(phosphat bind) 667 mg Capsule 667 mg PO TID meclizine 25 mg tablet 12.5 mg PO BID PRN (Reason: dizziness) Qty: 10 0RF polyethylene glycol 3350 [ClearLax] 17 gram/dose powder 17 g PO DAILY tramadol 50 mg tablet 50 mg PO Q6H PRN (Reason: pain) 3 Days Qty: 5 0RF clopidogrel [Plavix] 75 mg tablet 75 mg PO DAILY Qty: 90 0RF Changed pregabalin 75 mg Capsule 75 mg PO DAILY 3 Days Qty: 10 0RF insulin glargine [Lantus Solostar U-100 Insulin] 100 unit/mL (3 mL) Insulin Pen 5 unit SUBCUT QPM Qty: 15 0RF Discontinued hydralazine 50 mg tablet 25 mg PO TID diltiazem HCl 180 mg capsule,extended release 24hr 240 mg PO DAILY clonidine HCl 0.3 mg tablet 0.3 mg PO Q12H Referrals / Follow Up: Dennys Serrano MD [Primary Care Provider] - Disposition Disposition (needs filled in before D/C Order can be placed): [facility] Charges/Coding Visit Charges Inpatient E&M: 54292 Disch Hosp >30min
--- NOTE | 2024-04-09 13:45 | CASEMGMT ---
Patient is ready for discharge to [facility]. SW completed a 7000 in [place]. Physicians will transport patient via wheelchair. Plan: d/c to [facility] under skilled level of care on a convalescent stay. Heike BENNETT
--- NOTE | 2024-04-09 14:23 | CASEMGMT ---
Discharge Planning Discharge orders, signed med list, and transport time sent to [facility] via [facility]. Physicians will transport pt by wheelchair at 3:15p. Nursing, SW, and pt updated. VM left for pts sig other (Karri). Kathie Manuel DC Planning Asst.
--- NOTE | 2024-04-09 14:24 | NURSING ---
Report called to Renee at [facility].
== END 2024-04-09 16:00 | disposition skilled nursing facility (03) | DRG 640 ==
LOC: ED 19:17 → ICU 04-07 01:02 → PCU 04-07 18:25
PROVIDERS: Admitting Provider Family Medicine; Emergency Provider Emergency Medicine; PCP Family Medicine; Visit Provider Internal Medicine
DX: R62.7 Adult failure to thrive (principal); N18.6 End stage renal disease; I12.0 Hypertensive chronic kidney disease with stage 5 chronic kidney disease or end stage renal disease; L97.812 Non-pressure chronic ulcer of other part of right lower leg with fat layer exposed; D63.8 Anemia in other chronic diseases classified elsewhere; G90.9 Disorder of the autonomic nervous system, unspecified; I95.3 Hypotension of hemodialysis; E11.22 Type 2 diabetes mellitus with diabetic chronic kidney disease; F32.A Depression, unspecified; E11.622 Type 2 diabetes mellitus with other skin ulcer; D50.9 Iron deficiency anemia, unspecified; E11.40 Type 2 diabetes mellitus with diabetic neuropathy, unspecified; E78.00 Pure hypercholesterolemia, unspecified; K21.9 Gastro-esophageal reflux disease without esophagitis; G43.719 Chronic migraine without aura, intractable, without status migrainosus; Z79.4 Long term (current) use of insulin; E87.5 Hyperkalemia; Z99.2 Dependence on renal dialysis; I89.0 Lymphedema, not elsewhere classified; M54.50 Low back pain, unspecified; E11.21 Type 2 diabetes mellitus with diabetic nephropathy; E11.319 Type 2 diabetes mellitus with unspecified diabetic retinopathy without macular edema; F41.9 Anxiety disorder, unspecified; W19.XXXA Unspecified fall, initial encounter; Z79.82 Long term (current) use of aspirin; Z82.5 Family history of asthma and other chronic lower respiratory diseases; Z82.3 Family history of stroke; R53.1 Weakness; G89.4 Chronic pain syndrome; Z79.891 Long term (current) use of opiate analgesic; R53.81 Other malaise; Z68.28 Body mass index [BMI] 28.0-28.9, adult
CPT/HCPCS: 36415; 72170; 73502; 73552; 80048; 80053; 82962; 83735; 84100; 85025; 85027; 87633; 87635; 90937; 93005; 94668; 97162; 97167; 97530; 97535; 99284; 99285; A4216; G0257

== ENCOUNTER 2024-05-27 09:15 | Outpatient (RCR) | payer MEDICARE, MEDICAID, SELFPAY ==
[2024-05-20 09:04] VITALS: BP 192/100; RESP 18; TEMP 35.9
--- NOTE | 2024-05-20 11:33 | PCM.WC.HP ---
History of Present Illness Date of Service: 05/20/24 Chief Complaint: Bilateral leg skin breakdown left greater than right. History of Wound: A 62-year-old female who presents to the wound care center today for left heel ulceration and bilateral lower extremity edema with multiple leg wounds secondary to previous blisters. In October 2019, patient had rubbing in shoes while shopping which led to a blister that developed into an ulceration. Patient was then seen by Dewey Amezquita.P.M. for wound care. Patient then became infected and was admitted to the hospital. Patient was noted to have OM on MRI. Patient wanted to avoid surgery so a prison course of appropriate IV antibiotics was the treatment chosen. Patient was also noted to have hyperglycemia and has worked with hospitalist and PCP to try to get better control. Blood sugar levels remain elevated. Patient also had LEAS obtained in the hospital which suggested patient had the proper blood flow to allow healing. 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 Patient has since been seen on a weekly basis in office with progression and regression of wound noted over the weeks. Patient has tried various dressing options including wet to dry and santyl. The most progress was noted with Santyl but patient ran out and was unable to refill due to insurance issues. During which time the wound regressed. She also has an offloading surgical shoe and offloading boot to relieve pressure. Patient care is henceforth being carried out at the wound care center. Patient not currently on any antibiotics. Patient has since began skin graft aplications significant improvement is been noted to her foot overall. Patient has finished epifix graft applications with some very small remaining wound noted to left heel. Patient has new wounds noted to bilateral third digits. The right 3rd digit wound has healed. Her left ankle ulcer remains healed Patient relates that ambulation is getting easier and she is rebuilding her strength slowly. She has not had any worsening of minor remaining heel wound since beginning ambulation again. 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 Her has been helping her change the dressings daily to the left heel. She had been following in the wound care center in 2021 for left heel ulceration but was subsequently lost to follow-up. She cites transportation issues. She presents to the wound care center today for continued care of her left heel ulceration and bilateral lower extremity wounds secondary to edema. Progress of Wound: Stable heel ulceration with no sign of infection. Bilateral leg nonpitting edema. [facility] Medical History (Updated 05/20/24 @ 11:[address] Julian Solano, DPM) Altered gait Colitis Proctitis Ulcer of left ankle Non-pressure chronic ulcer of other part of left foot with fat layer exposed Personal history of colonic polyps Non-pressure chronic ulcer of other part of right foot with fat layer exposed Pressure ulcer of left heel, stage 2 Pain in left foot Osteomyelitis Ulcer of left heel Severe sepsis Hypoglycemia due to insulin Stage 5 chronic kidney disease due to type 2 diabetes mellitus Long-term insulin use Walker as ambulation aid History of renal disease Difficulty chewing History of renal dialysis Accidental fall Depression Uses wheelchair Arthritis Bilateral pleural effusion CKD (chronic kidney disease) stage 4, GFR 15-29 ml/min Anemia Diabetes mellitus with hyperglycemia Transfusion of blood during current hospitalisation Symptomatic anemia Diabetes HTN (hypertension) Closed intertrochanteric fracture of left hip Wears glasses Insulin dependent diabetes mellitus Low iron Excessive bleeding High cholesterol Migraine headache Injury of head and neck Syncope Vomiting Dietary restriction Gastric reflux Non-smoker History of edema History of echocardiogram History of stress test Cardiology follow-up encounter Hx of orthostatic hypotension Chronic pain syndrome Malnutrition Essential hypertension Vertigo Migraine without aura HLD (hyperlipidemia) Post-concussion syndrome History of orthostatic hypotension Home Medications ?Medication ?Instructions ?Recorded ?Last Taken ?Type aspirin 81 mg chewable tablet 81 mg PO QHS HEART HEALTH 12/15/19 11/20/22 History atorvastatin 40 mg tablet 40 mg PO QHS CHOLESTEROL 12/15/19 11/19/22 History insulin lispro 100 unit/mL 8 unit subcut TIDCM diabetes 01/06/22 03/13/23 History subcutaneous pen (Humalog KwikPen (U-100) Insulin) sertraline 50 mg tablet 50 mg PO QHS DEPRESSION 01/06/22 11/20/22 History calcium acetate(phosphat bind) 667 667 mg PO TID 05/25/22 11/19/22 History mg capsule flash glucose scanning reader #1 ea 12/07/22 Unknown Rx (FreeStyle Yane 2 [place]) flash glucose sensor (FreeStyle #2 ea 12/07/22 Unknown Rx Yane 2 Sensor kit) pantoprazole 40 mg tablet,delayed 40 mg PO Q12H 12/10/22 Unknown History release meclizine 25 mg tablet 12.5 mg (1/2 x 25 mg) PO BID PRN 10/01/23 Unknown Rx dizziness #10 tabs midodrine 10 mg tablet 10 mg PO 10/18/23 Unknown History clopidogrel 75 mg tablet (Plavix) 75 mg PO DAILY #90 tabs 10/28/23 Unknown Rx polyethylene glycol 3350 17 17 g PO DAILY 04/06/24 Unknown History gram/dose oral powder (ClearLax) insulin glargine 100 unit/mL (3 5 unit (0.05 mL) subcut QPM #15 mL 04/09/24 11/19/22 Rx mL) subcutaneous pen (Lantus Solostar U-100 Insulin) pregabalin 75 mg capsule 75 mg PO DAILY 3 days #10 caps 04/09/24 Unknown Rx tramadol 50 mg tablet 50 mg PO Q6H PRN pain 3 days #5 04/09/24 Unknown Rx tabs Allergy/AdvReac Type Severity Reaction Status Date / Time metformin AdvReac Diarrhea Verified 05/13/24 14:05 Family History Mother Hypertension Father Cancer lymphoma, leukemia Emphysema of lung Hypertension Grandmother Diabetes CVA (cerebral vascular accident) Surgical History S/P arteriovenous (AV) graft repair S/P arteriovenous (AV) fistula repair S/P arteriovenous (AV) fistula creation S/P dialysis catheter insertion History of esophagogastroduodenoscopy (EGD) Hx of colonoscopy History of mandibular surgery History of cholecystectomy Social History household members: significant other housing: longterm Smoking Status: Never smoker alcohol intake: never substance use type: does not use Vital Signs Vital Signs Vital Signs: 05/20/24 09:04 Temperature 96.6 F L Temperature Source Temporal Respiratory Rate 18 Blood Pressure 192/100 H Blood Pressure Mean 130 Blood Pressure Source Monitor Blood Pressure Position Sitting Blood Pressure Location Right Arm Oxygen Delivery Method Room Air Physical Exam Narrative Vascular: DP and PT pulse are palpable to the bilateral lower extremity. CFT is brisk. +1 pitting edema appreciated to bilateral lower extremity. Skin temperature gradient warm to warm from proximal ankles distally to the bilateral. Light touch intact. Patient does respond to painful stimuli. Dermatological: Evidence of full-thickness wound with dry eschar to the left heel measuring 3.4 x 4.9 x 0.1 cm. Wound base is granular nature with stable eschar. Sanguinous drainage is appreciated. No malodor. No probe to bone. No sign of infection. Bilateral +1 pitting edema to bilateral lower extremity. There is concern for breakdown of skin to bilateral lower extremity. Excisional debridement down to and including subcutaneous tissue with a number 5 mm dermal curette to the left heel full-thickness wound done without incident. Predebridement measurement was eschar. Postdebridement measurement is 3.4 x 4.9 x 0.1 cm. Musculoskeletal: No pain on palpation to the dry eschar and full-thickness wound to left heel. No pain on palpation to bilateral calfs. Debridement Note Debridement Note Debridement Free Text: Excisional debridement down to and including subcutaneous tissue with a number 5 mm dermal curette to the left heel full-thickness wound done without incident. Predebridement measurement was eschar. Postdebridement measurement is 3.4 x 4.9 x 0.1 cm. Post-Debridement Measurements and Additional Note: Post-Debridement Measurements/Treatment WC - Nurse 1 - General Ulcer Assessment Start: 05/20/24 09:01 Freq: Status: Active Protocol: MOOK Activity Type Activity Date Activity User E-sign Co-sign Detail Recorded Client Recorded Date Recorded By Document 05/20/24 09:04 MANISHA [id number] 05/20/24 09:10 KW 05/20/24 09:04 - Today's Visit Information Type of service Initial Visit Arrival Mode Wheelchair Patient Identification Verified (Name & Yes ) Finger Stick Blood Sugar(mg/dl) (if 192 indicated): Blood Sugar Done During this Visit Vital Signs Temperature (97.8 F-99.1 F) 96.6 F L Temperature Source Temporal Respiratory Rate (12-18) 18 Respiratory rate source Observation Oxygen Delivery Method Room Air Blood Pressure (90/60-120/80) 192/100 H Blood Pressure Mean 130 Source Monitor Position Sitting Blood Pressure Location Right Arm History Since Last Visit- (Skip if this is Patient's initial visit) Left Footwear Slipper Right Footwear Slipper Pain Scale: 0-10 Numeric Is Patient Pain Free? Yes WC - Nurse 1 - General Ulcer Measurement Start: 05/20/24 09:01 Freq: Status: Active Protocol: Activity Type Activity Date Activity User E-sign Co-sign Detail Recorded Client Recorded Date Recorded By Document 05/20/24 09:04 KW [id number] 05/20/24 09:10 KW 05/20/24 09:04 Wound Center Nurse 1 24 lt heel -Current Size (cm) - Length 5 -Current Size (cm) - Width 7 -Current Size (cm) - Depth 0.1 -Total Square Cm 35 -Date of Last Picture (Recall this 05/20/24 field) -Exudate Amt None Present -Wound Margin Distinct, Outline Attached -Necrosis Amt Large (67-100%) -Necrotic Tissue Type Eschar -Texture (Bren-wound Skin Appearance) Assessed -Moisture (Bren-wound Skin Appearance) Dry/Scaly -Color (Bren-wound Skin Appearance) Assessed -Temperature (Bren-wound Skin No Abnormality Appearance) (Pt Warm) -Tenderness on Palpation (Bren-wound No Skin Appearance) -Ulcer Cleansing Soap and Water -Foul Odor after Cleansing No -Anesthetic Used 4% Lidocaine Solution Left Calf (cm) 44.7 Left Ankle (cm) 22.5 WC - Nurse 2 - General Ulcer CM Notes Start: 05/20/24 09:01 Freq: Status: Active Protocol: Activity Type Activity Date Activity User E-sign Co-sign Detail Recorded Client Recorded Date Recorded By Document 05/20/24 09:19 JF [id number] 05/20/24 09:22 JF 05/20/24 09:19 Wound Center Nurse 2 24 lt heel -Time 09:20 -Correct Patient Yes -Correct Side, Site, Position Yes -Correct Procedure Yes -Procedure Performed Yes -Type of Procedure Debridement -Clinical Debridement Subcutaneous -Tissue Removed Subcutaneous -Post Debridement (cm) - Length 3.4 -Post Debridement (cm) - Width 4.9 -Post Debridement (cm) - Depth 0.1 -Total Square (Post) (cm) 16.66 -Area of Debridement (cm) - Length 3.4 -Area of Debridement (cm) - Width 4.9 -Total Square (Area) (cm) 16.66 -Tunneling No -Undermining/Tunneling No -Circular Undermining No -Wound/Ulcer Outcome Not Healed -Ulcer Cleansing Rinsed/ Irrigated with Saline -Foul Odor after Cleansing No -Bioengineered Tissue No -Bleeding Controlled with Pressure -Treatment Response Procedure Tolerated Well -Offloading No -Debridement - Subq, 1st 20sq cm Yes Pain Scale: 0-10 Numeric Is Patient Pain Free? Yes WC - Nurse 3 - General Ulcer D/C NN Start: 05/20/24 09:01 Freq: Status: Active Protocol: Activity Type Activity Date Activity User E-sign Co-sign Detail Recorded Client Recorded Date Recorded By Document 05/20/24 09:55 GM [id number] 05/20/24 09:57 GM 05/20/24 09:55 Wound Care Center Nurse 3 24 lt heel -Ulcer Cleansing Rinsed/ Irrigated with Saline -Foul Odor after Cleansing No -Negative Pressure Wound Therapy N/A -Primary Dressing Covered/Secured with Dry Gauze & Roll Gauze, Secured with Tape RLE -Lotion applied to leg before Yes compression wrap -Tubular Bandage Double Layer -Size of Tubigrip Used Size E -Size E ($) 2 LLE -Lotion applied to leg before Yes compression wrap -Tubular Bandage Double Layer -Size of Tubigrip Used Size E -Size E ($) 4 Pain Scale: 0-10 Numeric Is Patient Pain Free? Yes Teaching: Wound Center Compression Wraps & Stockings -Person Taught Patient -Teaching Method Discussion, Demonstration -Response to teaching Verbalize Understanding WC - Visit Discharge Discharge Condition Stable Ambulatory Status Wheelchair Transportation Private Auto Assessment/Plan Assessment/Plan (1) Non-pressure chronic ulcer of left heel and midfoot with fat layer exposed: CODE(S): L97.422 - Non-pressure chronic ulcer of left heel and midfoot with fat layer exposed PLAN: Patient was examined and evaluated. All findings were discussed with the patient. All questions were answered to the patient's satisfaction. Excisional debridement down to and including subcutaneous tissue with a number 5 mm dermal curette to the left heel full-thickness wound done without incident. Predebridement measurement was eschar. Postdebridement measurement is 3.4 x 4.9 x 0.1 cm. The left heel was wiped clean and patted dry. Betadine soaked gauze followed by dry sterile dressing and double layer Tubigrip was donned to the left lower extremity as well as to the right lower extremity. Educated the patient that she needs to sleep in a bed and not in a recliner but she states that due to her heat not working in her home she needs to sleep in the recliner. Patient is a fall risk due to her weakness of her upper body as well as lower body. She will continue to ambulate cautiously with a rollator. She is working with occupational therapy for better ways of mobility. Will make recommendations to the patient if she is showing failure to thrive and recommend either retirement facility versus assisted living for permanent residence. Follow-up at the wound care center with Dr. Solano in 1 week. (2) Other specified peripheral vascular diseases: CODE(S): I73.89 - Other specified peripheral vascular diseases
--- NOTE | 2024-05-20 14:40 | WC ---
PHOTO 05/20/24 Left Heel
[2024-05-27 09:02] VITALS: BP 143/80; PULSE 93; RESP 18; TEMP 35.6
--- NOTE | 2024-05-27 11:55 | PN.PCM_ITS ---
History of Present Illness Date of Service: 05/27/24 Chief Complaint: Bilateral leg skin breakdown left greater than right. History of Wound: A 62-year-old female who presents to the wound care center today for left heel ulceration and bilateral lower extremity edema with multiple leg wounds secondary to previous blisters. In October 2019, patient had rubbing in shoes while shopping which led to a blister that developed into an ulceration. Patient was then seen by Dewey Amezquita.P.M. for wound care. Patient then became infected and was admitted to the hospital. Patient was noted to have OM on MRI. Patient wanted to avoid surgery so a skilled nursing course of appropriate IV antibiotics was the treatment chosen. Patient was also noted to have hyperglycemia and has worked with hospitalist and PCP to try to get better control. Blood sugar levels remain elevated. Patient also had LEAS obtained in the hospital which suggested patient had the proper blood flow to allow healing. 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 Patient has since been seen on a weekly basis in office with progression and regression of wound noted over the weeks. Patient has tried various dressing options including wet to dry and santyl. The most progress was noted with Santyl but patient ran out and was unable to refill due to insurance issues. During which time the wound regressed. She also has an offloading surgical shoe and offloading boot to relieve pressure. Patient care is henceforth being carried out at the wound care center. Patient not currently on any antibiotics. Patient has since began skin graft aplications significant improvement is been noted to her foot overall. Patient has finished epifix graft applications with some very small remaining wound noted to left heel. Patient has new wounds noted to bilateral third digits. The right 3rd digit wound has healed. Her left ankle ulcer remains healed Patient relates that ambulation is getting easier and she is rebuilding her strength slowly. She has not had any worsening of minor remaining heel wound since beginning ambulation again. 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 Her has been helping her change the dressings daily to the left heel. She had been following in the wound care center in 2021 for left heel ulceration but was subsequently lost to follow-up. She cites transportation issues. She presents to the wound care center today for continued care of her left heel ulceration and bilateral lower extremity wounds secondary to edema. Progress of Wound: Stable heel ulceration with no sign of infection. Bilateral leg nonpitting edema. Subjective Subjective Ms. Porras is a 63-year-old female presented wound care center today follow-up evaluation of full-thickness wound to the left heel. She also has blisters to the second, third and fourth digit of the left foot. She has left her compression wraps clean dry and intact. She continues to elevate as discussed. She denies any long periods of weightbearing or pressure to the left heel. She states that she is doing well. She denies trauma. Denies constitutional symptoms. No other pedal complaints at this time. Objective Data Objective Data Vital Signs: Vital Signs Temp Pulse Resp BP O2 Del Method 96.1 F L 93 18 143/80 H Room Air 05/27/24 09:02 05/27/24 09:02 05/27/24 09:02 05/27/24 09:02 05/27/24 09:02 Oxygen Delivery Method Room Air Physical Exam Narrative Vascular: DP and PT pulse are palpable to the bilateral lower extremity. CFT is brisk. +1 pitting edema appreciated to bilateral lower extremity. Skin temperature gradient warm to warm from proximal ankles distally to the bilateral. Light touch intact. Patient does respond to painful stimuli. Dermatological: Full-thickness wound to the left heel measuring 2.0 x 4.2 x 0.2 cm. Wound base is granular nature with stable eschar. Sanguinous drainage is appreciated. No malodor. No probe to bone. No sign of infection. Evidence of fluid-filled bullae to the second, third and fourth digit left foot. No sign of infection. Excisional debridement down to and including subcutaneous tissue with a number 5 mm dermal curette to the left heel full-thickness wound done without incident. Predebridement measurement was eschar. Postdebridement measurement is 2.0 x 4.2 x 0.2 cm. Musculoskeletal: No pain on palpation to the dry eschar and full-thickness wound to left heel. No pain on palpation to bilateral calfs. Debridement Note Debridement Note Debridement Free Text: Excisional debridement down to and including subcutaneous tissue with a number 5 mm dermal curette to the left heel full-thickness wound done without incident. Predebridement measurement was eschar. Postdebridement measurement is 2.0 x 4.2 x 0.2 cm. 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 ) Arrival Mode Wheelchair Wheelchair Patient Identification Verified (Name & Yes Yes ) Finger Stick Blood Sugar(mg/dl) (if 192 indicated): Blood Sugar Done During this Visit Vital Signs Temperature (97.8 F-99.1 F) 96.6 F L 96.1 F L Temperature Source Temporal Temporal Pulse Rate (60-100) 93 Pulse Location Monitor Respiratory Rate (12-18) 18 18 Respiratory rate source Observation Observation Oxygen Delivery Method Room Air Room Air Blood Pressure (90/60-120/80) 192/100 H 143/80 H Blood Pressure Mean (mm Hg) 130 101 Source Monitor Monitor Position Sitting Sitting Blood Pressure Location Right Arm Right Forearm History Since Last Visit- (Skip if this is Patient's initial visit) Have you changed medications since your No last visit? Any new allergies or adverse reactions No Had a fall/change in ADL's that may No increase risk of falls Signs or symptoms of abuse and/or No neglect since last visit Have you been in the hospital since your No last visit? Has dressing in place as prescribed Yes Has compression in place as prescribed Yes Has offloadiing in place as prescribed N/A Experienced any changes in pain level or No management Left Footwear Slipper Slipper Right Footwear Slipper Slipper Pain Scale: 0-10 Numeric Is Patient Pain Free? Yes Yes SAMARIA Massey Nurse 1 - General Ulcer Measurement Start: 05/20/24 09:01 Freq: Status: Active Protocol: Activity Type Activity Date Activity User E-sign Co-sign Detail Recorded Client Recorded Date Recorded By Document 05/20/24 09:04 KW [id number] 05/20/24 09:10 KW Document 05/27/24 09:02 KW [id number] 05/27/24 09:19 KW 05/20/24 05/27/24 09:04 09:02 Wound Center Nurse 1 24 lt heel -Current Size (cm) - Length 5 2.5 -Current Size (cm) - Width 7 4 -Current Size (cm) - Depth 0.1 0.1 -Total Square Cm 35 10.0 -Date of Last Picture (Recall this 05/20/24 field) -Exudate Amt None Present Small -Wound Margin Distinct, Distinct, Outline Outline Attached Attached -Necrosis Amt Large (67-100%) Large (67-100%) -Necrotic Tissue Type Eschar Eschar -Texture (Bren-wound Skin Appearance) Assessed Assessed -Moisture (Bren-wound Skin Appearance) Dry/Scaly Assessed,Dry/ Scaly -Color (Bren-wound Skin Appearance) Assessed Assessed -Temperature (Bren-wound Skin No Abnormality No Abnormality Appearance) (Pt Warm) (Pt Warm) -Tenderness on Palpation (Bren-wound No No Skin Appearance) -Ulcer Cleansing Soap and Water Soap and Water -Foul Odor after Cleansing No No -Anesthetic Used 4% Lidocaine 5% Lidocaine Solution Gel Right Calf (cm) 34.5 Right Ankle (cm) 26 Left Calf (cm) 44.7 36.5 Left Ankle (cm) 22.5 24.5 WC - Nurse 2 - General Ulcer CM Notes Start: 05/20/24 09:01 Freq: Status: Active Protocol: Activity Type Activity Date Activity User E-sign Co-sign Detail Recorded Client Recorded Date Recorded By Document 05/20/24 09:19 JF [id number] 05/20/24 09:22 JF Document 05/27/24 09:41 JF [id number] 05/27/24 09:45 JF Edit Result 05/27/24 09:41 JF (1) [id number] 05/27/24 09:47 JF (1) 24 lt heel - Clinical Debridement Subcutaneous => Muscle / Fascia - Tissue Removed Subcutaneous => Muscle - Debridement - Subq, 1st 20sq cm Yes => - Debridement - Muscle / Fascia, 1st => Yes 20sq cm 05/20/24 05/27/24 09:19 09:41 Wound Center Nurse 2 24 lt heel -Time 09:20 09:42 -Correct Patient Yes Yes -Correct Side, Site, Position Yes Yes -Correct Procedure Yes Yes -Procedure Performed Yes Yes -Type of Procedure Debridement Debridement -Clinical Debridement Subcutaneous Muscle / Fascia -Tissue Removed Subcutaneous Muscle -Post Debridement (cm) - Length 3.4 2.0 -Post Debridement (cm) - Width 4.9 4.2 -Post Debridement (cm) - Depth 0.1 0.2 -Total Square (Post) (cm) 16.66 8.40 -Area of Debridement (cm) - Length 3.4 2.0 -Area of Debridement (cm) - Width 4.9 4.2 -Total Square (Area) (cm) 16.66 8.40 -Tunneling No No -Undermining/Tunneling No No -Circular Undermining No No -Wound/Ulcer Outcome Not Healed Not Healed -Ulcer Cleansing Rinsed/ Rinsed/ Irrigated with Irrigated with Saline Saline -Foul Odor after Cleansing No No -Bioengineered Tissue No No -Bleeding Controlled with Pressure Pressure,Silver Nitrate -Treatment Response Procedure Procedure Tolerated Well Tolerated Well -Offloading No Yes -Type of Offloading Surgical Shoe -Debridement - Subq, 1st 20sq cm Yes -Debridement - Muscle / Fascia, 1st Yes 20sq cm Pain Scale: 0-10 Numeric Is Patient Pain Free? Yes Yes - Nurse 3 - General Ulcer D/C NN Start: 05/20/24 09:01 Freq: Status: Active Protocol: Activity Type Activity Date Activity User E-sign Co-sign Detail Recorded Client Recorded Date Recorded By Document 05/20/24 09:55 [id number] 05/20/24 09:57 Document 05/27/24 10:06 RB [id number] 05/27/24 10:07 RB 05/20/24 05/27/24 09:55 10:06 Wound Care Center Nurse 3 24 lt heel -Ulcer Cleansing Rinsed/ Irrigated with Saline -Foul Odor after Cleansing No -Negative Pressure Wound Therapy N/A -Primary Dressing Covered/Secured with Dry Gauze & Roll Gauze, Secured with Tape RLE -Lotion applied to leg before Yes compression wrap -Tubular Bandage Double Layer -Size of Tubigrip Used Size E -Size E ($) 2 LLE -Lotion applied to leg before Yes compression wrap -Tubular Bandage Double Layer -Size of Tubigrip Used Size E -Size E ($) 4 Pain Scale: 0-10 Numeric Is Patient Pain Free? Yes Yes Teaching: Wound Center Compression Wraps & Stockings -Person Taught Patient -Teaching Method Discussion, Demonstration -Response to teaching Verbalize Understanding WC - Visit Discharge Discharge Condition Stable Stable Ambulatory Status Wheelchair Wheelchair Transportation Private Auto Private Auto Medication Reconcilliation completed & No provided to patient/care provider Clinical Summary of Care Provided Yes 24 lt heel -Ulcer Cleansing Rinsed/ Irrigated with Saline -Other Dressing betadine gauze/ ABD nurses hat -Primary Dressing Covered/Secured with Dry Gauze & Roll Gauze, Secured with Tape RLE -Tubular Bandage Double Layer -Size of Tubigrip Used Size E -Size E ($) 2 LLE -Tubular Bandage Double Layer -Size of Tubigrip Used Size E -Size E ($) 2 Treatment Response Procedure Tolerated Well Assessment/Plan Assessment/Plan (1) Non-pressure chronic ulcer of left heel and midfoot with fat layer exposed: CODE(S): L97.422 - Non-pressure chronic ulcer of left heel and midfoot with fat layer exposed PLAN: Patient was examined and evaluated. All findings were discussed with the patient. All questions were answered to the patient's satisfaction. Excisional debridement down to and including subcutaneous tissue with a number 5 mm dermal curette to the left heel full-thickness wound done without incident. Predebridement measurement was eschar. Postdebridement measurement is 2.0 x 4.2 x 0.2 cm. The left heel was wiped clean and patted dry. Betadine soaked gauze was applied to the full-thickness wound to the left heel followed by dry sterile dressing and compression wrap. Compression wrap was also donned to the right l ower extremity. Will begin ordering Santyl topical dressing to be applied nickel thick to the left heel with moist gauze dry sterile dressing and compression wrap. Educated the patient continue use a support device when walking to decrease falls which she is understanding of. Patient did show evidence of fluid-filled bullae to the left foot second, third and fourth digit. The bullae's were wiped clean with alcohol wipe and using a #15 blade draining of the bullae was performed via a stab incision to the second, third and fourth digit of the left foot. All fluid was removed. No malodor was appreciated. The area was wiped clean and patted dry. Betadine paint and dry gauze was applied to the lesser digits to be changed with daily dressing changes per nursing. Follow-up at the wound care center with Dr. Solano in 1 week. (2) Other specified peripheral vascular diseases: CODE(S): I73.89 - Other specified peripheral vascular diseases (3) Blister (nonthermal), left foot, initial encounter: CODE(S): S90.822A - Blister (nonthermal), left foot, initial encounter
== END 2024-05-29 23:59 | disposition home or self-care (01) ==
LOC: WC 09:15
PROVIDERS: PCP Family Medicine; Referring Provider Podiatrist Foot & Ankle Surgery; Visit Provider Podiatrist Foot & Ankle Surgery
DX: E11.621 Type 2 diabetes mellitus with foot ulcer (principal); N18.5 Chronic kidney disease, stage 5; I12.0 Hypertensive chronic kidney disease with stage 5 chronic kidney disease or end stage renal disease; L97.422 Non-pressure chronic ulcer of left heel and midfoot with fat layer exposed; E11.65 Type 2 diabetes mellitus with hyperglycemia; E11.22 Type 2 diabetes mellitus with diabetic chronic kidney disease; Z79.4 Long term (current) use of insulin; E78.00 Pure hypercholesterolemia, unspecified; G89.4 Chronic pain syndrome; I73.89 Other specified peripheral vascular diseases; S90.822A Blister (nonthermal), left foot, initial encounter; Z90.49 Acquired absence of other specified parts of digestive tract
CPT/HCPCS: 11042; 11043; 99214; G0463

== ENCOUNTER 2024-06-08 16:00 | Outpatient (RCR) | payer MEDICARE, MEDICAID, SELFPAY ==
[2024-06-08 16:47] LABS: Color, Urine Red (Yellow); Glucose, Dipstick Normal (Normal); Ketone-Dipstick Negative (Negative); Leukocyte Esterase-Dipstick 25 /ul (Negative); Nitrite-Dipstick Negative (Negative); Occult Blood-Urine 250 /ul (Negative); Protein-Dipstick 500 mg/dl (Negative); Specific Gravity, Urine 1.015 (1.002-1.030); Urine Bilirubin Dipstick Negative (Negative); Urine Clarity Turbid (Clear); Urine Urobilinogen Normal (Normal)
== END 2024-06-29 21:29 | disposition home or self-care (01) ==
LOC: HHLAB 16:00
PROVIDERS: PCP Family Medicine; Referring Provider Family Medicine; Visit Provider Family Medicine
DX: I13.2 Hypertensive heart and chronic kidney disease with heart failure and with stage 5 chronic kidney disease, or end stage renal disease (principal); N18.9 Chronic kidney disease, unspecified; I50.9 Heart failure, unspecified
CPT/HCPCS: 81002; 87077; 87086; 87088; 87186

== ENCOUNTER → 2024-06-12 | Outpatient (CLI) | payer MEDICARE, MEDICAID, SELFPAY ==
--- NOTE | 2024-06-12 08:19 | MRI_ITS ---
PROCEDURE: MRI lumbar spine without IV contrast REASON FOR EXAM: PAIN TECHNIQUE: Multisequence multiplanar MR images of the lumbar spine were obtained without the administration of intravenous contrast. COMPARISON: 05/13/2024 FINDINGS: Moderate chronic compression fracture of the L2 vertebral body with at least 50% height loss. Minimal osseous retropulsion measuring up to 2 mm. No evidence of acute compression fracture. Mild dextroscoliosis. Conus medullaris is intact and terminates at L1. L1-2: Minimal posterior disc bulge. Mild bilateral facet arthrosis and ligamentum flavum hypertrophy. No significant spinal stenosis or foraminal narrowing. L2-3: No focal disc abnormality, spinal stenosis or foraminal narrowing. Mild bilateral facet arthropathy. L3-4: Mild posterior disc bulge. Mild bilateral facet arthrosis and ligamentum flavum hypertrophy. No significant spinal stenosis or foraminal narrowing. L4-5: Mild posterior disc bulge. Moderate bilateral facet arthrosis and ligamentum flavum hypertrophy. Mild spinal stenosis. No significant foraminal narrowing. L5-S1: Disc bulge eccentric to the right with superimposed annular fissure. Mild bilateral facet arthrosis. No significant spinal stenosis or foraminal narrowing. MRI/Spine Lumbar (Routine) IMPRESSION: 1. Moderate chronic compression fracture of L2. No acute osseous abnormality. 2. Acquired mild spinal stenosis at L4-5. No other significant spinal stenosis or foraminal narrowing. Reading Location: [facility]
== END | disposition home or self-care (01) ==
LOC: MRI 07:51
PROVIDERS: PCP Family Medicine; Referring Provider Nurse Practitioner Family; Visit Provider Nurse Practitioner Family
DX: M21.372 Foot drop, left foot (principal); S32.020A Wedge compression fracture of second lumbar vertebra, initial encounter for closed fracture; S32.592A Other specified fracture of left pubis, initial encounter for closed fracture
CPT/HCPCS: 72148

== ENCOUNTER 2024-06-16 07:03 | Emergency (ER) | payer MEDICARE, MEDICAID, SELFPAY ==
[2024-06-16 07:04] VITALS: BP 154/73; PULSE 104; RESP 18; TEMP 37.8; O2SAT 95; BMI 27.8
[2024-06-16 07:07] VITALS: BP 154/73; PULSE 102; RESP 18; TEMP 37.8; O2SAT 95
--- NOTE | 2024-06-16 07:11 | EX.ED.DYSGE1 ---
HPI History of Present Illness Chief Complaint: General Illness Informant: patient Onset/Context/Timing Onset: Today Context: Gradual Onset Timing: Continuous Location: Bilateral arms and legs Worsened by: Nothing Relieved by: Nothing Narrative Narrative: Patient presents with pain in her arms and legs. Patient states the pain became worse today. Patient admits to recent fever. Patient states she was diagnosed with urinary tract infection within the last week. Patient states nothing makes her pain better and nothing makes it worse. Patient denies any chest pain. Patient denies any nausea or vomiting. EMS reports the patient was post to go to dialysis today. Patient is a poor informant and does not want to answer questions. [facility] Medical History Altered gait Colitis Proctitis Ulcer of left ankle Non-pressure chronic ulcer of other part of left foot with fat layer exposed Personal history of colonic polyps Non-pressure chronic ulcer of other part of right foot with fat layer exposed Pressure ulcer of left heel, stage 2 Pain in left foot Osteomyelitis Ulcer of left heel Severe sepsis Hypoglycemia due to insulin Stage 5 chronic kidney disease due to type 2 diabetes mellitus Long-term insulin use Walker as ambulation aid History of renal disease Difficulty chewing History of renal dialysis Accidental fall Depression Uses wheelchair Arthritis Bilateral pleural effusion CKD (chronic kidney disease) stage 4, GFR 15-29 ml/min Anemia Diabetes mellitus with hyperglycemia Transfusion of blood during current hospitalisation Symptomatic anemia Diabetes HTN (hypertension) Closed intertrochanteric fracture of left hip Wears glasses Insulin dependent diabetes mellitus Low iron Excessive bleeding High cholesterol Migraine headache Injury of head and neck Syncope Vomiting Dietary restriction Gastric reflux Non-smoker History of edema History of echocardiogram History of stress test Cardiology follow-up encounter Hx of orthostatic hypotension Chronic pain syndrome Malnutrition Essential hypertension Vertigo Migraine without aura HLD (hyperlipidemia) Post-concussion syndrome History of orthostatic hypotension Home Medications ?Medication ?Instructions ?Recorded ?Last Taken ?Type aspirin 81 mg chewable tablet 81 mg PO QHS HEART HEALTH 12/15/19 11/20/22 History atorvastatin 40 mg tablet 40 mg PO QHS CHOLESTEROL 12/15/19 11/19/22 History insulin lispro 100 unit/mL 8 unit subcut TIDCM diabetes 01/06/22 03/13/23 History subcutaneous pen (Humalog KwikPen (U-100) Insulin) sertraline 50 mg tablet 50 mg PO QHS DEPRESSION 01/06/22 11/20/22 History calcium acetate(phosphat bind) 667 667 mg PO TID 05/25/22 11/19/22 History mg capsule flash glucose scanning reader #1 ea 12/07/22 Unknown Rx (FreeStyle Yane 2 Monhegan) flash glucose sensor (FreeStyle #2 ea 12/07/22 Unknown Rx Yane 2 Sensor kit) pantoprazole 40 mg tablet,delayed 40 mg PO Q12H 12/10/22 Unknown History release meclizine 25 mg tablet 12.5 mg (1/2 x 25 mg) PO BID PRN 10/01/23 Unknown Rx dizziness #10 tabs midodrine 10 mg tablet 10 mg PO 10/18/23 Unknown History clopidogrel 75 mg tablet (Plavix) 75 mg PO DAILY #90 tabs 10/28/23 Unknown Rx polyethylene glycol 3350 17 17 g PO DAILY 04/06/24 Unknown History gram/dose oral powder (ClearLax) insulin glargine 100 unit/mL (3 5 unit (0.05 mL) subcut QPM #15 mL 04/09/24 11/19/22 Rx mL) subcutaneous pen (Lantus Solostar U-100 Insulin) pregabalin 75 mg capsule 75 mg PO DAILY 3 days #10 caps 04/09/24 Unknown Rx tramadol 50 mg tablet 50 mg PO Q6H PRN pain 3 days #5 04/09/24 Unknown Rx tabs collagenase clostridium histo. 250 topical DAILY 06/09/24 Unknown History unit/gram topical ointment (Santyl) cephalexin 500 mg capsule 500 mg PO Q6 #20 CAPSULES 06/16/24 Unknown Rx Allergy/AdvReac Type Severity Reaction Status Date / Time metformin AdvReac Diarrhea Verified 06/16/24 07:04 Family History Mother Hypertension Father Cancer lymphoma, leukemia Emphysema of lung Hypertension Grandmother Diabetes CVA (cerebral vascular accident) Surgical History S/P arteriovenous (AV) graft repair S/P arteriovenous (AV) fistula repair S/P arteriovenous (AV) fistula creation S/P dialysis catheter insertion History of esophagogastroduodenoscopy (EGD) Hx of colonoscopy History of mandibular surgery History of cholecystectomy Social History household members: significant other housing: prison Smoking Status: Never smoker alcohol intake: never substance use type: does not use ROS ROS ED Review of Systems ROS Unobtainable: other Details: Patient does not want to answer questions. EXAM Physical Exam Const Vital Signs: 06/16/24 07:04 06/16/24 07:07 06/16/24 07:21 Temperature 100.1 F H 100.1 F H Temperature Source Oral Oral Pulse Rate 104 H 102 H Respiratory Rate 18 18 Blood Pressure 154/73 H 154/73 H Blood Pressure Mean 100 100 Pulse Ox 95 95 Oxygen Delivery Method Room Air Room Air Room Air 06/16/24 08:07 06/16/24 09:00 06/16/24 10:00 Temperature 100 F H 99 F 99 F Temperature Source Oral Oral Oral Pulse Rate 99 102 H 100 Respiratory Rate 18 18 16 Blood Pressure 165/71 H 161/67 H 159/67 H Blood Pressure Mean 102 98 97 Pulse Ox 96 96 96 Oxygen Delivery Method Room Air Positive well nourished and well developed General Appearance ED: well developed and NAD HEENT Reports moist mucous membranes Neck supple and no JVD Chest Wall palpation of chest normal Resp Auscultation: diminished lung sounds diffuse Cardio regular rhythm Rate: tachycardic GI non-tender and non-distended Palpation: soft Extremity General Extremety ED: Yes edema and tenderness General Extremity: edema Neuro CN's II-XII intact bilaterally and no sensory deficits noted Sensorium / Orientation: alert Motor Exam: general weakness Psych Mood & Affect: depressed MDM MDM MDM Narrative Medical decision making narrative: Differential diagnosis includes pneumonia, urinary tract infection, sepsis, cardiac dysrhythmia, cardiac ischemia, electrolyte abnormality, congestive heart failure, and acute kidney injury. Chest x-ray will be obtained to assess for congestive heart failure and pneumonia. EKG will be obtained to assess for cardiac dysrhythmia and cardiac ischemia. CBC will be obtained to assess for leukocytosis and anemia. Basic metabolic profile will be obtained to assess for renal function and electrolyte abnormality. Urinalysis will be obtained to assess for urinary tract infection and hematuria. Serum lactate will be obtained to assess for sepsis. High-sensitivity troponin will be obtained to assess for cardiac ischemia. BNP will be obtained to assess for congestive heart failure. PT with INR and PTT will be obtained to assess for coagulopathy. Blood cultures will be obtained to assess for sepsis. Urine culture will be obtained to assess for urinary tract infection. Lab Data Attestation: I reviewed the patient's lab results. Lab results narrative: CBC was reviewed. There is a mild anemia with a hemoglobin of 10.9 and hematocrit 33.7. Platelets were normal. Comprehensive metabolic profile was reviewed. Creatinine was 6.41 and BUN was 45. This is consistent with previous results. Glucose was elevated at 344. Potassium was mildly elevated at 5.5. Initial high-sensitivity troponin was reviewed and was slightly elevated at 83. 2-hour repeat high-sensitivity troponin was reviewed and was 80. This is improving. It is likely due to her renal failure. proBNP was reviewed and was elevated to 734. Urinalysis was reviewed. Leukocyte esterase was 500 with greater than 100 white blood cells and 3+ bacteria. Serum lactate was reviewed and was normal at 1.0. Labs: Laboratory Results - last 24 hr 06/16/24 06/16/24 06/16/24 07:49 08:09 10:25 WBC 5.7 RBC 3.70 L Hgb 10.9 L Hct 33.7 L MCV 91.1 MCH 29.5 MCHC 32.3 RDW Std Deviation 45.0 H RDW Coeff of Chris 13.5 Plt Count 181 MPV 10.7 Immature Gran % (Auto) 0.400 Neut % (Auto) 90.9 H Lymph % (Auto) 4.1 L Person % (Auto) 3.0 Eos % (Auto) 1.2 Baso % (Auto) 0.4 Absolute Neuts (auto) 5.1 Absolute Lymphs (auto) 0.23 L Nucleated RBC % 0 PT 12.4 INR 0.9 APTT 29.2 Sodium 132 L Potassium 5.5 H Chloride 90 L Carbon Dioxide 25.8 Anion Gap 16 H BUN 45 H Creatinine 6.41 H Estim Creat Clear Calc 9.39 L* Est GFR (MDRD) Non-Af 7 L BUN/Creatinine Ratio 7.1 L Glucose 344 H Lactic Acid 1.0 Calcium 9.3 Total Bilirubin 0.30 AST 20 ALT 12 Alkaline Phosphatase 199 H Troponin T High Sens 83 H* Troponin T Hi Sens 2 Hr 80 H* NT pro BNP II 2734 H Total Protein 7.1 Albumin 4.0 Globulin 3.1 Albumin/Globulin Ratio 1.3 Urine Color Yellow Urine Clarity Turbid Urine pH 6.0 Ur Specific Delano 1.015 Urine Protein 500 H Urine Glucose (UA) Normal Urine Ketones Negative Urine Occult Blood 250 H Urine Nitrite Negative Urine Bilirubin Negative Urine Urobilinogen Normal Ur Leukocyte Esterase 500 H Urine RBC 0 SEEN Urine WBC >100 SEEN Ur Squamous Epith Cells 0 SEEN Ur Renal Epithelial Cell 0-5 SEEN Urine Bacteria 3+ Urine Mucus 0 SEEN Radiography Chest X-Ray - ED: 1 View, Read by ED Physician, Read by Radiologist and No Acute Disease Diagnostic Testing: Clinical Impression(s) from Imaging Studies Chest X-Ray 06/16/24 08:25 IMPRESSION: No acute cardiopulmonary process. Reading Location: [facility] Portable 1 view chest x-ray was obtained. On my independent interpretation, lung olivo are clear. There is normal cardiac silhouette. Bony thorax is normal. There is no acute process noted. Radiologist also interpreted the x-ray and agrees. EKG Initial EKG: Attestation: I personally reviewed and interpreted this EKG as follows: Interpretation: No Acute Injury Pattern and Sinus Tachycardia (105) Comments: EKG was obtained. On my independent interpretation, it showed a sinus tachycardia with a rate of 105. FL interval, QRS interval, and QTc intervals were all normal. Sheldon was normal. There are no acute ST or T wave changes. Prior EKG tracings: available for review Prior: Unchanged (04/06/2024) Treatment and Re-Evaluation :: Patient was given a dose of morphine and Zofran here. Patient was given a dose of Tylenol. Patient was given a dose of Rocephin. Patient was advised of her findings. Patient was advised of her need for dialysis. Patient states she goes to [facility]. Patient was scheduled to go there today. Dialysis center was contacted. Patient will be discharged and directed to go to the dialysis center. Patient was given a prescription for Keflex. Patient was instructed to follow-up with her primary care physician in 3 to 5 days. Patient was instructed to return if worse in any way. Patient understood and was agreeable with the plan. All questions were answered. Discharge Plan Triage Chief Complaint: General Illness ED Provider: Arnold Nowak Dx/Rx/DC Orders Clinical Impression: UTI (urinary tract infection), Generalized weakness, CKD (chronic kidney disease) Instructions: ED Cystitis Female Adult Prescriptions: New cephalexin 500 mg capsule 500 mg PO Q6 Qty: 20 0RF No Action (DME) FreeStyle Yane 2 [place]gan Misc See Rx Instructions .Route Qty: 1 0RF Rx Instructions: As directed (DME) FreeStyle Yane 2 Sensor Kit See Rx Instructions .Route Qty: 2 6RF Rx Instructions: As directed pantoprazole 40 mg tablet,delayed release (DR/EC) 40 mg PO Q12H midodrine 10 mg tablet 10 mg PO Patient Comments: pt takes at dialysis 2 times when there. atorvastatin 40 MG tablet 40 mg PO QHS aspirin 81 MG tablet,chewable 81 mg PO QHS insulin lispro [Humalog KwikPen Insulin] 100 unit/mL insulin pen 8 unit subcut TIDCM Rx Instructions: with meals sertraline 50 mg tablet 50 mg PO QHS calcium acetate(phosphat bind) 667 mg Capsule 667 mg PO TID meclizine 25 mg tablet 12.5 mg PO BID PRN (Reason: dizziness) Qty: 10 0RF polyethylene glycol 3350 [ClearLax] 17 gram/dose powder 17 g PO DAILY tramadol 50 mg tablet 50 mg PO Q6H PRN (Reason: pain) 3 Days Qty: 5 0RF pregabalin 75 mg Capsule 75 mg PO DAILY 3 Days Qty: 10 0RF insulin glargine [Lantus Solostar U-100 Insulin] 100 unit/mL (3 mL) Insulin Pen 5 unit SUBCUT QPM Qty: 15 0RF Santyl 250 unit/gram ointment topical DAILY clopidogrel [Plavix] 75 mg tablet 75 mg PO DAILY Qty: 90 0RF Primary Care Provider: Dennys Serrano Referrals: Dennys Serrano MD [Primary Care Provider] - 3-5 Days Print Language: Vietnamese Disposition Disposition: Home, Self Care
--- NOTE | 2024-06-16 07:21 | EKG12_ITS ---
Test Reason : GEN ILLNESS Blood Pressure : */* mmHG Vent. Rate : 105 BPM Atrial Rate : 105 BPM P-R Int : 152 ms QRS Dur : 84 ms QT Int : 312 ms P-R-T Axes : 28 29 62 degrees QTcB Int : 412 ms Sinus tachycardia Otherwise normal ECG Confirmed by ALYSSIA AMEZCUA, KARLA ([id number]), publications editor RAFI DOMINGO ([id number]) on 06/17/2024 8:47:01 AM Referred By: Confirmed By: KARLA CADE MD
[2024-06-16] MEDS: Acetaminophen 325 MG Tablet 650 MG PO (07:44)
[2024-06-16 07:59] LABS: Absolute Lymphocyte Count 0.23 X10^3/uL (0.83-4.51); Absolute Neutrophil Count 5.1 X10^3/uL (2.0-7.7); Basophil# 0.02 X10^3/uL; Basophil% 0.4 % (0-1); Eosinophil# 0.07 X10^3/uL; Eosinophils% 1.2 % (0-5); Hematocrit 33.7 % (37-47); Hemoglobin 10.9 g/dL (12.0-15.0); Lymphocyte # 0.23 X10^3/ul (0.83-4.51); Lymphocyte % 4.1 % (19-41); Mean Corp Hgb Conc 32.3 g/dL (32-36); Mean Corpuscular Hgb 29.5 pg (27.0-32.0); Mean Corpuscular Volume 91.1 fL (81-99); Mean Platelet Vol. 10.7 fl (6.2-12.0); Monocyte# 0.17 X10^3/uL; NRBC Flagged by Analyzer 0 % (0-5); Neutrophil # 5.14 X10^3/uL (2.7-7.7); Neutrophil % 90.9 % (47-70); POSITIVE DIFFERENTIAL YES; Platelet Count 181 K/mm3 (150-450); RBC Distribution Width CV 13.5 % (11.6-14.6); White Blood Count 5.7 K/mm3 (4.4-11.0)
[2024-06-16 08:07] VITALS: BP 165/71; PULSE 99; RESP 18; TEMP 37.7; O2SAT 96
[2024-06-16 08:13] LABS: Mucous, Urine 0 SEEN /hpf (<or=2+); Squamous Epithelial Cells - UA 0 SEEN /hpf (5-10)
[2024-06-16 08:20] LABS: Pro- Brain NATRIURETIC PEPTIDE 2734 pg/mL (<=900)
--- NOTE | 2024-06-16 08:25 | RAD_ITS ---
EXAM: XR Chest, 1 View CLINICAL INDICATION: FEVER TECHNIQUE: Frontal view of the chest. COMPARISON: No relevant prior studies available. FINDINGS: LUNGS AND PLEURAL SPACES: Unremarkable. No consolidation. No pneumothorax. HEART: Unremarkable. No cardiomegaly. MEDIASTINUM: Unremarkable. Normal mediastinal contour. BONES/JOINTS: Unremarkable. No acute fracture. RAD/Chest 1 View (Portable) IMPRESSION: No acute cardiopulmonary process. Reading [facility]
[2024-06-16 08:32] LABS: ALB/GLOB Ratio 1.3 RATIO (0.9-2.4); AST(SGOT) 20 U/L (<=31); Alanine Aminotransfer ALT/SGPT 12 U/L (<=34); Alkaline Phosphatase 199 U/L (35-104); Anion Gap 16 (5-15); BUN 45 mg/dL (4-19); BUN/Creat Ratio 7.1 RATIO (10-20); Calcium,Total 9.3 mg/dL (7.6-11.0); Carbon Dioxide 25.8 mmol/L (21.0-32.0); Chloride 90 mmol/L (98-108); Creatinine, Serum 6.41 mg/dL (0.70-1.20); EST Glomerular Filtration Rate 7 (>60); Estimated Creatinine Clearance 9.39 ml/min (50-250); Globulin 3.1 g/dL (2.2-4.2); Glucose 344 mg/dL (70-99); Potassium 5.5 mmol/L (3.3-5.1); Protein, Total 7.1 g/dL (5.9-8.4); Sodium Level 132 mmol/L (133-145)
[2024-06-16 08:36] LABS: Color, Urine Yellow (Yellow); Glucose, Dipstick Normal (Normal); Ketone-Dipstick Negative (Negative); Leukocyte Esterase-Dipstick 500 /ul (Negative); Nitrite-Dipstick Negative (Negative); Occult Blood-Urine 250 /ul (Negative); Protein-Dipstick 500 mg/dl (Negative); Specific Gravity, Urine 1.015 (1.002-1.030); Urine Bilirubin Dipstick Negative (Negative); Urine Clarity Turbid (Clear); Urine Urobilinogen Normal (Normal)
[2024-06-16 08:37] LABS: International Normalized Ratio 0.9; Prothrombin Time (Protime)PT. 12.4 SECONDS (11.7-14.9)
[2024-06-16 08:38] LABS: Partial Thromboplast Time 29.2 Seconds (24.1-36.2)
[2024-06-16 08:46] LABS: Red Blood Cells-Urine 0 SEEN /hpf (0-5); White Blood Cells >100 SEEN /hpf (0-5)
[2024-06-16 08:47] LABS: Bacteria 3+ /hpf (None Seen); Renal Epithelial Cells 0-5 SEEN /hpf (0-5)
[2024-06-16] MEDS: Morphine 4 MG/ML Syringe IV (08:54)
[2024-06-16] MEDS: Ondansetron 4 MG/2 ML Vial IV (08:54)
[2024-06-16 09:00] VITALS: BP 161/67; PULSE 102; RESP 18; TEMP 37.2; O2SAT 96
[2024-06-16 09:14] LABS: Troponin T High Sensitivity 83 ng/L (<=14)
[2024-06-16] MEDS: Ceftriaxone 1 GM/50 ML BAG IV (09:45)
[2024-06-16 10:00] VITALS: BP 159/67; PULSE 100; RESP 16; TEMP 37.2; O2SAT 96
[2024-06-17 03:14] LABS: Troponin T High Sens 2 HR 81 ng/L (<=14)
== END 2024-06-16 12:38 | disposition home or self-care (01) ==
PROVIDERS: Emergency Provider Emergency Medicine; PCP Family Medicine; Visit Provider Emergency Medicine
DX: N39.0 Urinary tract infection, site not specified (principal); N18.4 Chronic kidney disease, stage 4 (severe); E11.22 Type 2 diabetes mellitus with diabetic chronic kidney disease; Z79.4 Long term (current) use of insulin; M79.605 Pain in left leg; M79.604 Pain in right leg; R53.1 Weakness; E78.00 Pure hypercholesterolemia, unspecified; M79.601 Pain in right arm; I12.9 Hypertensive chronic kidney disease with stage 1 through stage 4 chronic kidney disease, or unspecified chronic kidney disease; M79.602 Pain in left arm; Z90.49 Acquired absence of other specified parts of digestive tract; R60.9 Edema, unspecified; R00.0 Tachycardia, unspecified; R50.9 Fever, unspecified
CPT/HCPCS: 71045; 80053; 81001; 83605; 83880; 84484; 85025; 85610; 85730; 87040; 87077; 87086; 87088; 87186; 93005; 96365; 96375; 99285; A4216; J2405

== ENCOUNTER 2024-06-24 09:15 | Outpatient (RCR) | payer MEDICARE, MEDICAID, SELFPAY ==
[2024-05-30 01:27] VITALS: BP 143/80; PULSE 93; RESP 18; TEMP 35.6
[2024-06-03 09:22] VITALS: BP 147/88; PULSE 94; RESP 15; TEMP 36.1
--- NOTE | 2024-06-03 11:10 | PN.PCM_ITS ---
History of Present Illness Date of Service: 06/03/24 Chief Complaint: Bilateral leg skin breakdown left greater than right. History of Wound: A 63-year-old female who presents to the wound care center today for left heel ulceration and bilateral lower extremity edema with multiple leg wounds secondary to previous blisters. In October 2019, patient had rubbing in shoes while shopping which led to a blister that developed into an ulceration. Patient was then seen by Dewey Amezquita.P.M. for wound care. Patient then became infected and was admitted to the hospital. Patient was noted to have OM on MRI. Patient wanted to avoid surgery so a fci course of appropriate IV antibiotics was the treatment chosen. Patient was also noted to have hyperglycemia and has worked with hospitalist and PCP to try to get better control. Blood sugar levels remain elevated. Patient also had LEAS obtained in the hospital which suggested patient had the proper blood flow to allow healing. 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 Patient has since been seen on a weekly basis in office with progression and regression of wound noted over the weeks. Patient has tried various dressing options including wet to dry and santyl. The most progress was noted with Santyl but patient ran out and was unable to refill due to insurance issues. During which time the wound regressed. She also has an offloading surgical shoe and offloading boot to relieve pressure. Patient care is henceforth being carried out at the wound care center. Patient not currently on any antibiotics. Patient has since began skin graft aplications significant improvement is been noted to her foot overall. Patient has finished epifix graft applications with some very small remaining wound noted to left heel. Patient has new wounds noted to bilateral third digits. The right 3rd digit wound has healed. Her left ankle ulcer remains healed Patient relates that ambulation is getting easier and she is rebuilding her strength slowly. She has not had any worsening of minor remaining heel wound since beginning ambulation again. 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 Her has been helping her change the dressings daily to the left heel. She had been following in the wound care center in 2021 for left heel ulceration but was subsequently lost to follow-up. She cites transportation issues. She presents to the wound care center today for continued care of her left heel ulceration and bilateral lower extremity wounds secondary to edema. Progress of Wound: Full-thickness wound with stable eschar to the left heel. Subjective Subjective Ms. Winkler is a 63-year-old female presented wound care center today for follow-up evaluation of left heel wound as well as blisters to the lesser digits of the left foot and 1 on the right foot. Patient has been doing her dressing changes with home health care and wearing her compression sleeves as discussed. She finally got her Santyl topical medication that we will begin today. She continues to rest and elevate. Her swelling is improved. She denies any new onset of trauma. Denies constitutional symptoms. No other pedal complaints at this time. Objective Data Objective Data Vital Signs: Vital Signs Temp Pulse Resp BP 97.0 F L 94 15 147/88 H 06/03/24 09:22 06/03/24 09:22 06/03/24 09:22 06/03/24 09:22 Physical Exam Narrative Vascular: DP and PT pulse are palpable to the bilateral lower extremity. CFT is brisk. +1 pitting edema appreciated to bilateral lower extremity. Skin temperature gradient warm to warm from proximal ankles distally to the bilateral. Light touch intact. Patient does respond to painful stimuli. Dermatological: Full-thickness wound to the left heel measuring 3.8 x 3.9 x 0.2 cm. Wound base is granular nature with stable eschar. Sanguinous drainage is appreciated. No malodor. No probe to bone. No sign of infection. Evidence of fluid-filled bullae to the second, third and fourth digit left foot. No sign of infection. Evidence of dry eschar to the second and third digit on the left foot. Excisional debridement down to and including subcutaneous tissue with a number 5 mm dermal curette to the left heel full-thickness wound done without incident. Predebridement measurement was eschar. Postdebridement measurement is 3.8 x 3.9 x 0.2 cm. Musculoskeletal: No pain on palpation to the dry eschar and full-thickness wound to left heel. No pain on palpation to bilateral calfs. Debridement Note Debridement Note Debridement Free Text: Excisional debridement down to and including subcutaneous tissue with a number 5 mm dermal curette to the left heel full-thickness wound done without incident. Predebridement measurement was eschar. Postdebridement measurement is 2.0 x 4.2 x 0.2 cm. 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 Any new allergies or adverse reactions No Had a fall/change in ADL's that may No increase risk of falls Signs or symptoms of abuse and/or No neglect since last visit Have you been in the hospital since your No last visit? Has dressing in place as prescribed Yes Has compression in place as prescribed Yes Has offloadiing in place as prescribed N/A Experienced any changes in pain level or No management Pain Scale: 0-10 Numeric Is Patient Pain Free? Yes - Nurse 1 - General Ulcer Measurement Start: 06/03/24 09:21 Freq: Status: Active Protocol: Activity Type Activity Date Activity User E-sign Co-sign Detail Recorded Client Recorded Date Recorded By Document 06/03/24 09:22 ML [id number] 06/03/24 09:31 ML Edit Result 06/03/24 09:22 ML (1) [id number] 06/03/24 09:32 ML (1) Right Calf (cm) => 34.7 Right Ankle (cm) => 27 Left Calf (cm) => 42 Left Ankle (cm) => 24 06/03/24 09:22 Wound Center Nurse 1 24 lt heel -Current Size (cm) - Length 2 -Current Size (cm) - Width 3 -Current Size (cm) - Depth 0.1 -Total Square Cm 6 -Exudate Amt Medium -Exudate Type Serous -Granulation Amt Medium (34-66%) -Necrosis Amt Medium (34-66%) -Necrotic Tissue Type Eschar -Texture (Bren-wound Skin Appearance) Localized Edema -Moisture (Bren-wound Skin Appearance) Assessed,Dry/ Scaly -Color (Bren-wound Skin Appearance) Assessed, Erythema -Temperature (Bren-wound Skin No Abnormality Appearance) (Pt Warm) -Tenderness on Palpation (Bren-wound No Skin Appearance) -Ulcer Cleansing Soap and Water -Foul Odor after Cleansing No -Anesthetic Used 5% Lidocaine Gel Right Calf (cm) 34.7 Right Ankle (cm) 27 Left Calf (cm) 42 Left Ankle (cm) 24 WC - Nurse 2 - General Ulcer CM Notes Start: 06/03/24 09:21 Freq: Status: Active Protocol: Activity Type Activity Date Activity User E-sign Co-sign Detail Recorded Client Recorded Date Recorded By Document 06/03/24 09:55 JAUN [id number] 06/03/24 10:01 JAUN 06/03/24 09:55 Wound Center Nurse 2 24 lt heel -Time 09:56 -Correct Patient Yes -Correct Side, Site, Position Yes -Correct Procedure Yes -Procedure Performed Yes -Type of Procedure Debridement -Clinical Debridement Subcutaneous -Tissue Removed Subcutaneous -Post Debridement (cm) - Length 3.8 -Post Debridement (cm) - Width 3.9 -Post Debridement (cm) - Depth 0.2 -Total Square (Post) (cm) 14.82 -Area of Debridement (cm) - Length 3.8 -Area of Debridement (cm) - Width 3.9 -Total Square (Area) (cm) 14.82 -Tunneling No -Undermining/Tunneling No -Circular Undermining No -Wound/Ulcer Outcome Not Healed -Ulcer Cleansing Rinsed/ Irrigated with Saline -Foul Odor after Cleansing No -Bioengineered Tissue No -Bleeding Controlled with Pressure -Treatment Response Procedure Tolerated Well -Offloading No -Debridement - Subq, 1st 20sq cm Yes Pain Scale: 0-10 Numeric Is Patient Pain Free? Yes WC - Nurse 3 - General Ulcer D/C NN Start: 06/03/24 09:21 Freq: Status: Active Protocol: Activity Type Activity Date Activity User E-sign Co-sign Detail Recorded Client Recorded Date Recorded By Document 06/03/24 10:43 NC [id number] 06/03/24 10:53 MT 06/03/24 10:43 Wound Care Center Nurse 3 24 lt heel -Foul Odor after Cleansing No -Negative Pressure Wound Therapy N/A -Primary Dressing Applied Surgifoam -Other Dressing abd -Primary Dressing Covered/Secured with Dry Gauze,Dry Gauze & Roll Gauze,Secured with Tape -Surgifoam 12-7mm (3/4 x 2 3/8) 2 LLE -Tubular Bandage Double Layer -Size of Tubigrip Used Size E -Size E ($) 4 Pain Scale: 0-10 Numeric Is Patient Pain Free? Yes Assessment/Plan Assessment/Plan (1) Non-pressure chronic ulcer of left heel and midfoot with fat layer exposed: CODE(S): L97.422 - Non-pressure chronic ulcer of left heel and midfoot with fat layer exposed PLAN: Patient was examined and evaluated. All findings were discussed with the patient. All questions were answered to the patient's satisfaction. Excisional debridement down to and including subcutaneous tissue with a number 5 mm dermal curette to the left heel full-thickness wound done without incident. Predebridement measurement was eschar. Postdebridement measurement is 2.0 x 4.2 x 0.2 cm. The left heel was wiped clean and patted dry compression was used to control bleeding. Once bleeding had stopped with silver nitrate was applied. The wound was dressed with Santyl nickel thick moist gauze and dry sterile dressing compression wrap. Patient will continue to have dressing changes by home health care and continue to wear compression wrap from the sulcus of the toes to her mid calf to the bilateral lower extremity. Educated the patient that we will continue Santyl until a granular base is appreciated, approximately 3 weeks and then begin skin graft substitute authorization to heal her wound. Follow-up at the wound care center with Dr. Solano in 1 week.
[2024-06-10 08:56] VITALS: BP 188/77; PULSE 94; RESP 18; TEMP 35.6
--- NOTE | 2024-06-10 12:19 | PN.PCM_ITS ---
History of Present Illness Date of Service: 06/03/24 Chief Complaint: Bilateral leg skin breakdown left greater than right. History of Wound: A 63-year-old female who presents to the wound care center today for left heel ulceration and bilateral lower extremity edema with multiple leg wounds secondary to previous blisters. In October 2019, patient had rubbing in shoes while shopping which led to a blister that developed into an ulceration. Patient was then seen by Dewey Amezquita.P.M. for wound care. Patient then became infected and was admitted to the hospital. Patient was noted to have OM on MRI. Patient wanted to avoid surgery so a fci course of appropriate IV antibiotics was the treatment chosen. Patient was also noted to have hyperglycemia and has worked with hospitalist and PCP to try to get better control. Blood sugar levels remain elevated. Patient also had LEAS obtained in the hospital which suggested patient had the proper blood flow to allow healing. Patient has since finished medical terminologist course of antibiotics. Patient has since been seen on a weekly basis in office with progression and regression of wound noted over the weeks. Patient has tried various dressing options including wet to dry and santyl. The most progress was noted with Santyl but patient ran out and was unable to refill due to insurance issues. During which time the wound regressed. She also has an offloading surgical shoe and offloading boot to relieve pressure. Patient care is henceforth being carried out at the wound care center. Patient not currently on any antibiotics. Patient has since began skin graft aplications significant improvement is been noted to her foot overall. Patient has finished epifix graft applications with some very small remaining wound noted to left heel. Patient has new wounds noted to bilateral third digits. The right 3rd digit wound has healed. Her left ankle ulcer remains healed Patient relates that ambulation is getting easier and she is rebuilding her strength slowly. She has not had any worsening of minor remaining heel wound since beginning ambulation again. 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 Her has been helping her change the dressings daily to the left heel. She had been following in the wound care center in 2021 for left heel ulceration but was subsequently lost to follow-up. She cites transportation issues. She presents to the wound care center today for continued care of her left heel ulceration and bilateral lower extremity wounds secondary to edema. Progress of Wound: Full-thickness wound with stable eschar to the left heel. Subjective Subjective Ms. Sprague is a 63-year-old female presented wound care center follow-up evaluation of full-thickness wound to left heel. She has been getting dressing changes with Santyl from home health care. She admits improvement to the heel wound. Using compression as instructed. Denies trauma. Denies constitutional symptoms. No other pedal complaints at this time Objective Data Objective Data Vital Signs: Vital Signs Temp Pulse Resp BP O2 Del Method 96.1 F L 94 18 188/77 H Room Air 06/10/24 08:56 06/10/24 08:56 06/10/24 08:56 06/10/24 08:56 06/10/24 08:56 Oxygen Delivery Method Room Air Physical Exam Narrative Vascular: DP and PT pulse are palpable to the bilateral lower extremity. CFT is brisk. +1 pitting edema appreciated to bilateral lower extremity. Skin temperature gradient warm to warm from proximal ankles distally to the bilateral. Light touch intact. Patient does respond to painful stimuli. Dermatological: Full-thickness wound to the left heel measuring 2.8 x 4.2 x 0.1 cm. Wound base is granular. Sanguinous drainage is appreciated. No malodor. No probe to bone. No sign of infection. Excisional debridement down to and including subcutaneous tissue with a number 5 mm dermal curette to the left heel full-thickness wound done without incident. Predebridement measurement was 2.6 x 4.0 x 0.1 cm.. Postdebridement measurement is 2.8 x 4.2 x 0.1 cm. Musculoskeletal: No pain on palpation to the dry eschar and full-thickness wound to left heel. No pain on palpation to bilateral calfs. Debridement Note Debridement Note Debridement Free Text: Excisional debridement down to and including subcutaneous tissue with a number 5 mm dermal curette to the left heel full-thickness wound done without incident. Predebridement measurement was 2.6 x 4.0 x 0.1 cm.. Postdebridement measurement is 2.8 x 4.2 x 0.1 cm. 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 (Physician/SHEET METAL WORK FURNACE INSTALLER ) ) Arrival Mode Wheelchair Patient Identification Verified (Name & Yes Yes ) Patient Requires Transmission-Based No Precautions Vital Signs Temperature (97.8 F-99.1 F) 97.0 F L 96.1 F L Temperature Source Temporal Temporal Pulse Rate (60-100) 94 94 Pulse Location Monitor Monitor Respiratory Rate (12-18) 15 18 Respiratory rate source Observation Observation Oxygen Delivery Method Room Air Blood Pressure (90/60-120/80) 147/88 H 188/77 H Blood Pressure Mean (mm Hg) 107 114 Source Monitor Monitor Position Sitting Semi-Fowlers Blood Pressure Location Right Arm Left Arm History Since Last Visit- (Skip if this is Patient's initial visit) Have you changed medications since your No No last visit? Any new allergies or adverse reactions No No Had a fall/change in ADL's that may No No increase risk of falls Signs or symptoms of abuse and/or No No neglect since last visit Have you been in the hospital since your No No last visit? Has dressing in place as prescribed Yes Yes Has compression in place as prescribed Yes Yes Has offloadiing in place as prescribed N/A N/A Experienced any changes in pain level or No No management Left Footwear No Footwear Right Footwear No Footwear Pain Scale: 0-10 Numeric Is Patient Pain Free? Yes Yes - Nurse 1 - General Ulcer Measurement Start: 06/03/24 09:21 Freq: Status: Active Protocol: Activity Type Activity Date Activity User E-sign Co-sign Detail Recorded Client Recorded Date Recorded By Document 06/03/24 09:22 ML [id number] 06/03/24 09:31 ML Edit Result 06/03/24 09:22 ML (1) [id number] 06/03/24 09:32 ML Document 06/10/24 08:56 KW [id number] 06/10/24 09:04 KW (1) Right Calf (cm) => 34.7 Right Ankle (cm) => 27 Left Calf (cm) => 42 Left Ankle (cm) => 24 06/03/24 06/10/24 09:22 08:56 Wound Center Nurse 1 24 lt heel -Current Size (cm) - Length 2 3.5 -Current Size (cm) - Width 3 4.5 -Current Size (cm) - Depth 0.1 0.2 -Total Square Cm 6 15.75 -Date of Last Picture (Recall this 06/10/24 field) -Exudate Amt Medium Small -Exudate Type Serous Serosanguineous -Wound Margin Distinct, Outline Attached -Granulation Amt Medium (34-66%) None Present (0 %) -Necrosis Amt Medium (34-66%) Large (67-100%) -Necrotic Tissue Type Eschar Adherent Slough -Texture (Bren-wound Skin Appearance) Localized Edema Assessed -Moisture (Bren-wound Skin Appearance) Assessed,Dry/ Assessed Scaly -Color (Rben-wound Skin Appearance) Assessed, Assessed Erythema -Temperature (Bren-wound Skin No Abnormality No Abnormality Appearance) (Pt Warm) (Pt Warm) -Tenderness on Palpation (Bren-wound No No Skin Appearance) -Ulcer Cleansing Soap and Water Soap and Water -Foul Odor after Cleansing No No -Anesthetic Used 5% Lidocaine 5% Lidocaine Gel Gel Right Calf (cm) 34.7 41.5 Right Ankle (cm) 27 26.5 Left Calf (cm) 42 36.5 Left Ankle (cm) 24 25 WC - Nurse 2 - General Ulcer CM Notes Start: 06/03/24 09:21 Freq: Status: Active Protocol: Activity Type Activity Date Activity User E-sign Co-sign Detail Recorded Client Recorded Date Recorded By Document 06/03/24 09:55 JAUN [id number] 06/03/24 10:01 JF Document 06/10/24 09:15 [id number] 06/10/24 09:22 JF 06/03/24 06/10/24 09:55 09:15 Wound Center Nurse 2 24 lt heel -Time 09:56 09:15 -Correct Patient Yes Yes -Correct Side, Site, Position Yes Yes -Correct Procedure Yes Yes -Procedure Performed Yes Yes -Type of Procedure Debridement Debridement -Clinical Debridement Subcutaneous Subcutaneous -Tissue Removed Subcutaneous Subcutaneous -Post Debridement (cm) - Length 3.8 2.8 -Post Debridement (cm) - Width 3.9 4.2 -Post Debridement (cm) - Depth 0.2 0.1 -Total Square (Post) (cm) 14.82 11.76 -Area of Debridement (cm) - Length 3.8 2.8 -Area of Debridement (cm) - Width 3.9 4.2 -Total Square (Area) (cm) 14.82 11.76 -Tunneling No No -Undermining/Tunneling No No -Circular Undermining No No -Wound/Ulcer Outcome Not Healed Not Healed -Ulcer Cleansing Rinsed/ Rinsed/ Irrigated with Irrigated with Saline Saline -Foul Odor after Cleansing No No -Bioengineered Tissue No No -Bleeding Controlled with Pressure Pressure -Treatment Response Procedure Procedure Tolerated Well Tolerated Well -Offloading No No -Debridement - Subq, 1st 20sq cm Yes Yes Pain Scale: 0-10 Numeric Is Patient Pain Free? Yes Yes WC - Nurse 3 - General Ulcer D/C NN Start: 06/03/24 09:21 Freq: Status: Active Protocol: Activity Type Activity Date Activity User E-sign Co-sign Detail Recorded Client Recorded Date Recorded By Document 06/03/24 10:43 [place] [id number] 06/03/24 10:53 MT 06/03/24 10:43 Wound Care Center Nurse 3 24 lt heel -Foul Odor after Cleansing No -Negative Pressure Wound Therapy N/A -Primary Dressing Applied Surgifoam -Other Dressing abd -Primary Dressing Covered/Secured with Dry Gauze,Dry Gauze & Roll Gauze,Secured with Tape -Surgifoam 12-7mm (3/4 x 2 3/8) 2 LLE -Tubular Bandage Double Layer -Size of Tubigrip Used Size E -Size E ($) 4 Pain Scale: 0-10 Numeric Is Patient Pain Free? Yes Assessment/Plan Assessment/Plan (1) Non-pressure chronic ulcer of left heel and midfoot with fat layer exposed: CODE(S): L97.422 - Non-pressure chronic ulcer of left heel and midfoot with fat layer exposed PLAN: Patient was examined and evaluated. All findings were discussed with the patient. All questions were answered to the patient's satisfaction. Excisional debridement down to and including subcutaneous tissue with a number 5 mm dermal curette to the left heel full-thickness wound done without incident. Predebridement measurement was 2.6 x 4.0 x 0.1 cm.. Postdebridement measurement is 2.8 x 4.2 x 0.1 cm. The wound was dressed with Santyl nickel thick moist gauze and dry sterile dressing compression wrap. Patient will continue to have dressing changes by home health care and continue to wear compression wrap from the sulcus of the toes to her mid calf to the bilateral lower extremity. Educated the patient that we will continue Santyl until a granular base is appreciated, approximately 3 weeks and then begin skin graft substitute authorization to heal her wound. Follow-up at the wound care center with Dr. Solano in 1 week.
--- NOTE | 2024-06-11 09:51 | WC ---
PHOTO 06/10/24 LEFT HEEL
[2024-06-24 09:15] VITALS: BP 142/70; PULSE 88; RESP 16; TEMP 36.1
--- NOTE | 2024-06-24 11:34 | PCM.WC.PN ---
History of Present Illness Date of Service: 06/24/24 Chief Complaint: Bilateral leg skin breakdown left greater than right. History of Wound: A 63-year-old female who presents to the wound care center today for left heel ulceration and bilateral lower extremity edema with multiple leg wounds secondary to previous blisters. In October 2019, patient had rubbing in shoes while shopping which led to a blister that developed into an ulceration. Patient was then seen by Dewey Amezquita.P.M. for wound care. Patient then became infected and was admitted to the hospital. Patient was noted to have OM on MRI. Patient wanted to avoid surgery so a mcfp course of appropriate IV antibiotics was the treatment chosen. Patient was also noted to have hyperglycemia and has worked with hospitalist and PCP to try to get better control. Blood sugar levels remain elevated. Patient also had LEAS obtained in the hospital which suggested patient had the proper blood flow to allow healing. 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 Patient has since been seen on a weekly basis in office with progression and regression of wound noted over the weeks. Patient has tried various dressing options including wet to dry and santyl. The most progress was noted with Santyl but patient ran out and was unable to refill due to insurance issues. During which time the wound regressed. She also has an offloading surgical shoe and offloading boot to relieve pressure. Patient care is henceforth being carried out at the wound care center. Patient not currently on any antibiotics. Patient has since began skin graft aplications significant improvement is been noted to her foot overall. Patient has finished epifix graft applications with some very small remaining wound noted to left heel. Patient has new wounds noted to bilateral third digits. The right 3rd digit wound has healed. Her left ankle ulcer remains healed Patient relates that ambulation is getting easier and she is rebuilding her strength slowly. She has not had any worsening of minor remaining heel wound since beginning ambulation again. 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 Her has been helping her change the dressings daily to the left heel. She had been following in the wound care center in 2021 for left heel ulceration but was subsequently lost to follow-up. She cites transportation issues. She presents to the wound care center today for continued care of her left heel ulceration and bilateral lower extremity wounds secondary to edema. Progress of Wound: Full-thickness wound with stable eschar to the left heel. Subjective Subjective Ms. Winkler is a 63-year-old female presenting to wound care center today for follow-up evaluation of left heel full-thickness ulceration. Patient has been compliant with dressing changes with home health care. She admits improvement to her wound. She also presented to the emergency room at [facility] on 06/16/2024 for a UTI. She was seen discharged and prescribed Keflex antibiotics which have improved her urinary symptoms. Overall she is improving. 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 She denies any new onset trauma. Denies constitutional symptoms. No other pedal complaints at this time. Objective Data Objective Data Vital Signs: Vital Signs Temp Pulse Resp BP O2 Del Method 97.0 F L 88 16 142/70 H Room Air 06/24/24 09:15 06/24/24 09:15 06/24/24 09:15 06/24/24 09:15 06/24/24 09:15 Oxygen Delivery Method Room Air Physical Exam Narrative Vascular: DP and PT pulse are palpable to the bilateral lower extremity. CFT is brisk. Nonpitting edema appreciated bilateral lower extremity. Skin temperature great is warm to warm from proximal ankles to distal digits bilateral. Light touch intact. Patient does respond to painful stimuli. Dermatological: Full-thickness wound to the left heel measuring 3.0 x 4.3 x 0.1 cm. Wound base is granular. No malodor. No probe to bone. No sign of infection. Excisional debridement down to and including subcutaneous tissue with a number 5 mm dermal curette to the left heel full-thickness wound done without incident. Predebridement measurement was 2.8 x 4.1 x 0.1 cm. Postdebridement measurement is 3.0 x 4.3 x 0.1 cm. Musculoskeletal: No pain to palpation to the full-thickness wound to left heel. No pain with calf pressure.. Debridement Note Debridement Note Debridement Free Text: Excisional debridement down to and including subcutaneous tissue with a number 5 mm dermal curette to the left heel full-thickness wound done without incident. Predebridement measurement was 2.8 x 4.1 x 0.1 cm. Postdebridement measurement is 3.0 x 4.3 x 0.1 cm. Post-Debridement Measurements and Additional Note: Post-Debridement Measurements/Treatment WC - Nurse 1 - General Ulcer Assessment Start: 06/03/24 09:21 Freq: Status: Active Protocol: MOOK Activity Type Activity Date Activity User E-sign Co-sign Detail Recorded Client Recorded Date Recorded By Document 06/03/24 09:22 ML [id number] 06/03/24 09:31 ML Document 06/10/24 08:56 KW [id number] 06/10/24 09:04 KW Document 06/24/24 09:15 ML [id number] 06/24/24 09:19 ML 06/03/24 06/10/24 06/24/24 09:22 08:56 09:15 WC - Today's Visit Information Type of service Follow-up Visit Follow-up Visit Follow-up Visit (Physician/PROCEDURE TECH (Physician/PROCEDURE TECH (Physician/PROCEDURE TECH ) ) ) Arrival Mode Wheelchair Wheelchair Patient Identification Verified (Name & Yes Yes Yes ) Patient Requires Transmission-Based No Precautions Vital Signs Temperature (97.8 F-99.1 F) 97.0 F L 96.1 F L 97.0 F L Temperature Source Temporal Temporal Temporal Pulse Rate (60-100) 94 94 88 Pulse Location Monitor Monitor Monitor Respiratory Rate (12-18) 15 18 16 Respiratory rate source Observation Observation Observation Oxygen Delivery Method Room Air Room Air Blood Pressure (90/60-120/80) 147/88 H 188/77 H 142/70 H Blood Pressure Mean (mm Hg) 107 114 94 Source Monitor Monitor Monitor Position Sitting Semi-Fowlers Semi-Fowlers Blood Pressure Location Right Arm Left Arm Left Arm History Since Last Visit- (Skip if this is Patient's initial visit) Have you changed medications since your No No No last visit? Any new allergies or adverse reactions No No No Had a fall/change in ADL's that may No No No increase risk of falls Signs or symptoms of abuse and/or No No No neglect since last visit Have you been in the hospital since your No No Yes last visit? Has dressing in place as prescribed Yes Yes Yes Has compression in place as prescribed Yes Yes Yes Has offloadiing in place as prescribed N/A N/A N/A Experienced any changes in pain level or No No No management Left Footwear No Footwear No Footwear Right Footwear No Footwear No Footwear Pain Scale: 0-10 Numeric Is Patient Pain Free? Yes Yes Yes WC - Nurse 1 - General Ulcer Measurement Start: 06/03/24 09:21 Freq: Status: Active Protocol: Activity Type Activity Date Activity User E-sign Co-sign Detail Recorded Client Recorded Date Recorded By Document 06/03/24 09:22 ML [id number] 06/03/24 09:31 ML Edit Result 06/03/24 09:22 ML (1) [id number] 06/03/24 09:32 ML Document 06/10/24 08:56 KW [id number] 06/10/24 09:04 KW Document 06/24/24 09:15 ML [id number] 06/24/24 09:19 ML (1) Right Calf (cm) => 34.7 Right Ankle (cm) => 27 Left Calf (cm) => 42 Left Ankle (cm) => 24 06/03/24 06/10/24 06/24/24 09:22 08:56 09:15 Wound Center Nurse 1 24 lt heel -Current Size (cm) - Length 2 3.5 0.1 -Current Size (cm) - Width 3 4.5 0.1 -Current Size (cm) - Depth 0.1 0.2 0.1 -Total Square Cm 6 15.75 0.01 -Date of Last Picture (Recall this 06/10/24 06/24/24 field) -Exudate Amt Medium Small Medium -Exudate Type Serous Serosanguineous Serosanguineous -Wound Margin Distinct, Distinct, Outline Outline Attached Attached -Granulation Amt Medium (34-66%) None Present (0 Medium (34-66%) %) -Granulation Quality Okay -Necrosis Amt Medium (34-66%) Large (67-100%) Medium (34-66%) -Necrotic Tissue Type Eschar Adherent Slough Adherent Slough -Texture (Bren-wound Skin Appearance) Localized Edema Assessed Assessed -Moisture (Bren-wound Skin Appearance) Assessed,Dry/ Assessed Assessed Scaly -Color (Bren-wound Skin Appearance) Assessed, Assessed Assessed Erythema -Temperature (Bren-wound Skin No Abnormality No Abnormality No Abnormality Appearance) (Pt Warm) (Pt Warm) (Pt Warm) -Tenderness on Palpation (Bren-wound No No No Skin Appearance) -Ulcer Cleansing Soap and Water Soap and Water Soap and Water -Foul Odor after Cleansing No No No -Anesthetic Used 5% Lidocaine 5% Lidocaine 5% Lidocaine Gel Gel Gel -Wound Comment(s) NOT MEASURED DURING NURSE 1 Right Calf (cm) 34.7 41.5 Right Ankle (cm) 27 26.5 Left Calf (cm) 42 36.5 Left Ankle (cm) 24 25 WC - Nurse 2 - General Ulcer CM Notes Start: 06/03/24 09:21 Freq: Status: Active Protocol: Activity Type Activity Date Activity User E-sign Co-sign Detail Recorded Client Recorded Date Recorded By Document 06/03/24 09:55 [id number] 06/03/24 10:01 Document 06/10/24 09:15 [id number] 06/10/24 09:22 JF Document 06/24/24 09:42 [id number] 06/24/24 09:46 06/03/24 06/10/24 06/24/24 09:55 09:15 09:42 Wound Center Nurse 2 24 lt heel -Time 09:56 09:15 09:43 -Correct Patient Yes Yes Yes -Correct Side, Site, Position Yes Yes Yes -Correct Procedure Yes Yes Yes -Procedure Performed Yes Yes Yes -Type of Procedure Debridement Debridement Debridement -Clinical Debridement Subcutaneous Subcutaneous Subcutaneous -Tissue Removed Subcutaneous Subcutaneous Subcutaneous -Post Debridement (cm) - Length 3.8 2.8 3.0 -Post Debridement (cm) - Width 3.9 4.2 4.3 -Post Debridement (cm) - Depth 0.2 0.1 0.1 -Total Square (Post) (cm) 14.82 11.76 12.90 -Area of Debridement (cm) - Length 3.8 2.8 3.0 -Area of Debridement (cm) - Width 3.9 4.2 4.3 -Total Square (Area) (cm) 14.82 11.76 12.90 -Tunneling No No No -Undermining/Tunneling No No No -Circular Undermining No No No -Wound/Ulcer Outcome Not Healed Not Healed Not Healed -Ulcer Cleansing Rinsed/ Rinsed/ Rinsed/ Irrigated with Irrigated with Irrigated with Saline Saline Saline -Foul Odor after Cleansing No No No -Bioengineered Tissue No No No -Bleeding Controlled with Pressure Pressure Pressure -Treatment Response Procedure Procedure Procedure Tolerated Well Tolerated Well Tolerated Well -Offloading No No No -Debridement - Subq, 1st 20sq cm Yes Yes Yes Pain Scale: 0-10 Numeric Is Patient Pain Free? Yes Yes Yes - Nurse 3 - General Ulcer D/C NN Start: 06/03/24 09:21 Freq: Status: Active Protocol: Activity Type Activity Date Activity User E-sign Co-sign Detail Recorded Client Recorded Date Recorded By Document 06/03/24 10:43 MT [id number] 06/03/24 10:53 MT Document 06/10/24 09:30 DS [id number] 06/12/24 15:57 DS Document 06/24/24 09:50 ML [id number] 06/24/24 09:51 ML 06/03/24 06/10/24 06/24/24 10:43 09:30 09:50 Wound Care Center Nurse 3 24 lt heel -Ulcer Cleansing Rinsed/ Irrigated with Saline -Foul Odor after Cleansing No -Negative Pressure Wound Therapy N/A -Primary Dressing Applied Surgifoam C Hydrogel -Other Dressing abd BROUGHT OWN SANTYL. -Primary Dressing Covered/Secured with Dry Gauze,Dry Dry Gauze, Dry Gauze & Gauze & Roll Secured with Roll Gauze, Gauze,Secured Tape Secured with with Tape Tape -Hydrogel 0 -Surgifoam 12-7mm (3/4 x 2 3/8) 2 LLE -Tubular Bandage Double Layer Double Layer Double Layer -Size of Tubigrip Used Size E Size E Size E -Size E ($) 4 2 2 Pain Scale: 0-10 Numeric Is Patient Pain Free? Yes Yes Yes WC - Visit Discharge Discharge Condition Stable Assessment/Plan Assessment/Plan (1) Non-pressure chronic ulcer of left heel and midfoot with fat layer exposed: CODE(S): L97.422 - Non-pressure chronic ulcer of left heel and midfoot with fat layer exposed PLAN: Patient was examined and evaluated. All findings were discussed with the patient. All questions were answered to the patient's satisfaction. Excisional debridement down to and including subcutaneous tissue with a number 5 mm dermal curette to the left heel full-thickness wound done without incident. Predebridement measurement was 2.8 x 4.1 x 0.1 cm. Postdebridement measurement is 3.0 x 4.3 x 0.1 cm. The wound was dressed with Santyl nickel thick moist gauze and dry sterile dressing compression wrap. Patient will continue to have dressing changes by home health care and continue to wear compression wrap from the sulcus of the toes to her mid calf to the bilateral lower extremity. We will begin authorization for amniotic skin graft substitute to the left heel to help accelerate the patient's wound care healing. Follow-up at the wound care center with Dr. Solano in 1 week.
--- NOTE | 2024-06-24 15:08 | WC ---
PHOTO 06/24/24 LEFT HEEL
--- NOTE | 2024-06-24 15:10 | WC ---
PHOTO 06/24/24 YOJANA
== END 2024-06-29 23:59 | disposition home or self-care (01) ==
LOC: WC 09:15
PROVIDERS: PCP Family Medicine; Referring Provider Podiatrist Foot & Ankle Surgery; Visit Provider Podiatrist Foot & Ankle Surgery
DX: L97.422 Non-pressure chronic ulcer of left heel and midfoot with fat layer exposed (principal); Z96.649 Presence of unspecified artificial hip joint; Z87.440 Personal history of urinary (tract) infections
CPT/HCPCS: 11042

== ENCOUNTER 2024-07-29 09:00 | Outpatient (RCR) | payer MEDICARE, MEDICAID, SELFPAY ==
[2024-06-30 00:48] VITALS: BP 142/70; PULSE 88; RESP 16; TEMP 36.1
[2024-07-01 09:14] VITALS: BP 144/74; PULSE 86; RESP 18; TEMP 35.9
--- NOTE | 2024-07-01 11:29 | PN.PCM_ITS ---
History of Present Illness Date of Service: 07/01/24 Chief Complaint: Left heel ulceration History of Wound: A 63-year-old female who presents to the wound care center today for left heel ulceration and bilateral lower extremity edema with multiple leg wounds secondary to previous blisters. In October 2019, patient had rubbing in shoes while shopping which led to a blister that developed into an ulceration. Patient was then seen by Prieto AmezquitaP.Usha. for wound care. Patient then became infected and was admitted to the hospital. Patient was noted to have OM on MRI. Patient wanted to avoid surgery so a shelter course of appropriate IV antibiotics was the treatment chosen. Patient was also noted to have hyperglycemia and has worked with hospitalist and PCP to try to get better control. Blood sugar levels remain elevated. Patient also had LEAS obtained in the hospital which suggested patient had the proper blood flow to allow healing. Patient has since finished shelter course of antibiotics. Patient has since been seen on a weekly basis in office with progression and regression of wound noted over the weeks. Patient has tried various dressing options including wet to dry and santyl. The most progress was noted with Santyl but patient ran out and was unable to refill due to insurance issues. During which time the wound regressed. She also has an offloading surgical shoe and offloading boot to relieve pressure. Patient care is henceforth being carried out at the wound care center. Patient not currently on any antibiotics. Patient has since began skin graft aplications significant improvement is been noted to her foot overall. Patient has finished epifix graft applications with some very small remaining wound noted to left heel. Patient has new wounds noted to bilateral third digits. The right 3rd digit wound has healed. Her left ankle ulcer remains healed Patient relates that ambulation is getting easier and she is rebuilding her strength slowly. She has not had any worsening of minor remaining heel wound since beginning ambulation again. 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 Her has been helping her change the dressings daily to the left heel. She had been following in the wound care center in 2021 for left heel ulceration but was subsequently lost to follow-up. She cites transportation issues. She presents to the wound care center today for continued care of her left heel ulceration and bilateral lower extremity wounds secondary to edema. Progress of Wound: Stable full-thickness wound left heel Subjective Subjective Ms. Winkler is a 63-year-old female presenting to the wound care center today for follow-up evaluation of full-thickness wound to the left heel. She has been compliant with dressing changes and has left them clean dry and intact. She has limited weightbearing and pressure to the left heel. She admits her wound is improving. She is still going to dialysis as scheduled and elevating and offloading her feet as discussed. Denies any new onset of trauma. Denies constitutional symptoms. No other pedal complaints at this time. Objective Data Objective Data Vital Signs: Vital Signs Temp Pulse Resp BP O2 Del Method 96.6 F L 86 18 144/74 H Room Air 07/01/24 09:14 07/01/24 09:14 07/01/24 09:14 07/01/24 09:14 07/01/24 09:14 Oxygen Delivery Method Room Air Physical Exam Narrative Vascular: DP and PT pulse are palpable to the bilateral lower extremity. CFT is brisk. Nonpitting edema appreciated bilateral lower extremity. Skin temperature great is warm to warm from proximal ankles to distal digits bilateral. Light touch intact. Patient does respond to painful stimuli. Dermatological: Full-thickness wound to the left heel measuring 2.8 x 3.2 x 0.1 cm. Wound base is granular. No malodor. No probe to bone. No sign of infection. Excisional debridement down to and including subcutaneous tissue with a number 5 mm dermal curette to the left heel full-thickness wound done without incident. Predebridement measurement was 2.6 x 3.0 x 0.1 cm. Postdebridement measurement is 2.8 x 3.2 x 0.1 cm. Musculoskeletal: No pain to palpation to the full-thickness wound to left heel. No pain with calf pressure. Debridement Note Debridement Note Debridement Free Text: Excisional debridement down to and including subcutaneous tissue with a number 5 mm dermal curette to the left heel full-thickness wound done without incident. Predebridement measurement was 2.6 x 3.0 x 0.1 cm. Postdebridement measurement is 2.8 x 3.2 x 0.1 cm. 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 Any new allergies or adverse reactions No Had a fall/change in ADL's that may No increase risk of falls Signs or symptoms of abuse and/or No neglect since last visit Have you been in the hospital since your No last visit? Has dressing in place as prescribed Yes Has compression in place as prescribed Yes Has offloadiing in place as prescribed N/A Experienced any changes in pain level or No management Left Footwear Slipper Right Footwear Slipper Pain Scale: 0-10 Numeric Is Patient Pain Free? Yes - Nurse 1 - General Ulcer Measurement Start: 07/01/24 09:14 Freq: Status: Active Protocol: Activity Type Activity Date Activity User E-sign Co-sign Detail Recorded Client Recorded Date Recorded By Document 07/01/24 09:14 KW [id number] 07/01/24 09:18 07/01/24 09:14 Wound Center Nurse 1 24 lt heel -Current Size (cm) - Length 3.5 -Current Size (cm) - Width 2.5 -Current Size (cm) - Depth 0.1 -Total Square Cm 8.75 -Date of Last Picture (Recall this 07/01/24 field) -Exudate Amt Small -Exudate Type Serosanguineous -Wound Margin Distinct, Outline Attached -Granulation Amt Small (1-33%) -Granulation Quality Red -Necrosis Amt Large (67-100%) -Necrotic Tissue Type Adherent Slough -Texture (Bren-wound Skin Appearance) Assessed -Moisture (Bren-wound Skin Appearance) Assessed -Color (Bren-wound Skin Appearance) Assessed -Temperature (Bren-wound Skin No Abnormality Appearance) (Pt Warm) -Tenderness on Palpation (Bren-wound No Skin Appearance) -Ulcer Cleansing Rinsed/ Irrigated with Saline -Foul Odor after Cleansing No -Anesthetic Used 5% Lidocaine Gel WC - Nurse 2 - General Ulcer CM Notes Start: 07/01/24 09:14 Freq: Status: Active Protocol: Activity Type Activity Date Activity User E-sign Co-sign Detail Recorded Client Recorded Date Recorded By Document 07/01/24 10:05 [id number] 07/01/24 10:06 07/01/24 10:05 Wound Center Nurse 2 -Time 10:05 -Correct Patient Yes -Correct Side, Site, Position Yes -Correct Procedure Yes -Procedure Performed Yes -Type of Procedure Debridement -Clinical Debridement Subcutaneous -Tissue Removed Subcutaneous -Post Debridement (cm) - Length 2.8 -Post Debridement (cm) - Width 3.2 -Post Debridement (cm) - Depth 0.1 -Total Square (Post) (cm) 8.96 -Area of Debridement (cm) - Length 2.8 -Area of Debridement (cm) - Width 3.2 -Total Square (Area) (cm) 8.96 -Tunneling No -Undermining/Tunneling No -Circular Undermining No -Wound/Ulcer Outcome Not Healed -Ulcer Cleansing Rinsed/ Irrigated with Saline -Foul Odor after Cleansing No -Bioengineered Tissue No -Bleeding Controlled with Pressure -Treatment Response Procedure Tolerated Well -Offloading No -Debridement - Subq, 1st 20sq cm Yes Pain Scale: 0-10 Numeric Is Patient Pain Free? Yes - Nurse 3 - General Ulcer D/C NN Start: 07/01/24 09:14 Freq: Status: Active Protocol: Activity Type Activity Date Activity User E-sign Co-sign Detail Recorded Client Recorded Date Recorded By Document 07/01/24 10:11 DE [id number] 07/01/24 10:15 DE 07/01/24 10:11 Wound Care Center Nurse 3 24 lt heel -Ulcer Cleansing Rinsed/ Irrigated with Saline -Foul Odor after Cleansing No -Negative Pressure Wound Therapy N/A -Primary Dressing Covered/Secured with Dry Gauze & Roll Gauze, Secured with Tape -Wound Comment(s) pt brought own santyl LLE -Tubular Bandage Double Layer -Size of Tubigrip Used Size E -Size E ($) 2 -Stockings No Pain Scale: 0-10 Numeric Is Patient Pain Free? Yes Assessment/Plan Assessment/Plan (1) Non-pressure chronic ulcer of left heel and midfoot with fat layer exposed: CODE(S): L97.422 - Non-pressure chronic ulcer of left heel and midfoot with fat layer exposed PLAN: Patient was examined and evaluated. All findings were discussed with the patient. All questions were answered to the patient's satisfaction. Excisional debridement down to and including subcutaneous tissue with a number 5 mm dermal curette to the left heel full-thickness wound done without incident. Predebridement measurement was 2.6 x 3.0 x 0.1 cm. Postdebridement measurement is 2.8 x 3.2 x 0.1 cm. The left heel was located patted dry. Santyl was applied nickel thick with moist gauze and compression wrap was donned to left lower extremity. We are still waiting approval through the patient's insurance for the amniotic skin graft substitute. Will continue our current dressing changes regiment with home health care. Patient will continue her dialysis schedule and continue to offload as needed. Follow-up at the wound care center with Dr. Solano in 1 week.
--- NOTE | 2024-07-02 10:12 | WC ---
PHOTO 07/01/24 YOJANA
--- NOTE | 2024-07-02 10:13 | WC ---
PHOTO 07/01/24 LEFT HEEL
[2024-07-15 09:14] VITALS: BP 188/75; PULSE 85; RESP 18; TEMP 36.1
--- NOTE | 2024-07-15 09:57 | PN.PCM_ITS ---
History of Present Illness Date of Service: 07/15/24 Chief Complaint: Left heel ulceration History of Wound: A 63-year-old female who presents to the wound care center today for left heel ulceration and bilateral lower extremity edema with multiple leg wounds secondary to previous blisters. In October 2019, patient had rubbing in shoes while shopping which led to a blister that developed into an ulceration. Patient was then seen by Prieto [email or web address]. for wound care. Patient then became infected and was admitted to the hospital. Patient was noted to have OM on MRI. Patient wanted to avoid surgery so a retirement course of appropriate IV antibiotics was the treatment chosen. Patient was also noted to have hyperglycemia and has worked with hospitalist and PCP to try to get better control. Blood sugar levels remain elevated. Patient also had LEAS obtained in the hospital which suggested patient had the proper blood flow to allow healing. Patient has since finished retirement course of antibiotics. Patient has since been seen on a weekly basis in office with progression and regression of wound noted over the weeks. Patient has tried various dressing options including wet to dry and santyl. The most progress was noted with Santyl but patient ran out and was unable to refill due to insurance issues. During which time the wound regressed. She also has an offloading surgical shoe and offloading boot to relieve pressure. Patient care is henceforth being carried out at the wound care center. Patient not currently on any antibiotics. Patient has since began skin graft aplications significant improvement is been noted to her foot overall. Patient has finished epifix graft applications with some very small remaining wound noted to left heel. Patient has new wounds noted to bilateral third digits. The right 3rd digit wound has healed. Her left ankle ulcer remains healed Patient relates that ambulation is getting easier and she is rebuilding her strength slowly. She has not had any worsening of minor remaining heel wound since beginning ambulation again. 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 Her has been helping her change the dressings daily to the left heel. She had been following in the wound care center in 2021 for left heel ulceration but was subsequently lost to follow-up. She cites transportation issues. She presents to the wound care center today for continued care of her left heel ulceration and bilateral lower extremity wounds secondary to edema. Progress of Wound: Stable full-thickness wound left heel Subjective Subjective Ms. Winkler is a 63-year-old female presented wound care center today for follow-up evaluation of full-thickness wound to left heel. Patient has left her dressing clean dry and intact. She has been compliant with dressing changes and offloading. She is nonambulatory and using a wheelchair at this time. She is following up with her regular scheduled dialysis. Doing well. Denies any pain to the heel. Denies trauma. Denies constitutional symptoms. No other pedal complaints at this time. Objective Data Objective Data Vital Signs: Vital Signs Temp Pulse Resp BP O2 Del Method 96.9 F L 85 18 188/75 H Room Air 07/15/24 09:14 07/15/24 09:14 07/15/24 09:14 07/15/24 09:14 07/01/24 09:14 Oxygen Delivery Method Room Air Physical Exam Narrative Vascular: DP and PT pulse are palpable to the bilateral lower extremity. CFT is brisk. Nonpitting edema appreciated bilateral lower extremity. Skin temperature great is warm to warm from proximal ankles to distal digits bilateral. Light touch intact. Patient does respond to painful stimuli. Dermatological: Full-thickness wound to the left heel measuring 3.2 x 3.3 x 0.1 cm. Wound base is granular. No malodor. No probe to bone. No sign of infection. Excisional debridement down to and including subcutaneous tissue with a number 5 mm dermal curette to the left heel full-thickness wound done without incident. Predebridement measurement was 3.0 x 3.1 x 0.1 cm.. Postdebridement measurement is 3.2 x 3.3 x 0.1 cm. Epi cord 2.0 x 3.0 cm was applied to the left heel full-thickness ulceration with 100% use. First application. The graft site was free and clear of any infection. The wound/skin graft substitute was dressed with nonadherent bandage secured in place with Steri-Strips followed by bolster dressing as well as a double layer Tubigrip. Musculoskeletal: No pain to palpation to the full-thickness wound to left heel. No pain with calf pressure. Debridement Note Debridement Note Debridement Free Text: Excisional debridement down to and including subcutaneous tissue with a number 5 mm dermal curette to the left heel full-thickness wound done without incident. Predebridement measurement was 3.0 x 3.1 x 0.1 cm.. Postdebridement measurement is 3.2 x 3.3 x 0.1 cm. Epi cord 2.0 x 3.0 cm was applied to the left heel full-thickness ulceration with 100% use. First application. The graft site was free and clear of any infection. The wound/skin graft substitute was dressed with nonadherent bandage secured in place with Steri-Strips followed by bolster dressing as well as a double layer Tubigrip. Post-Debridement Measurements and Additional Note: Post-Debridement Measurements/Treatment - Nurse 1 - General Ulcer Assessment Start: 07/01/24 09:14 Freq: Status: Active Protocol: MOOK Activity Type Activity Date Activity User E-sign Co-sign Detail Recorded Client Recorded Date Recorded By Document 07/01/24 09:14 KW [id number] 07/01/24 09:18 KW Document 07/15/24 09:14 RB [id number] 07/15/24 09:23 RB 07/01/24 07/15/24 09:14 09:14 - Today's Visit Information Type of service Follow-up Visit Follow-up Visit (Physician/BASKET MACHINE OPERATOR (Physician/BASKET MACHINE OPERATOR ) ) Arrival Mode Wheelchair Wheelchair Transfer Assistance Manual Patient Identification Verified (Name & Yes Yes ) Patient Requires Transmission-Based No Precautions Vital Signs Temperature (97.8 F-99.1 F) 96.6 F L 96.9 F L Temperature Source Temporal Temporal Pulse Rate (60-100) 86 85 Pulse Location Monitor Monitor Respiratory Rate (12-18) 18 18 Respiratory rate source Observation Observation Oxygen Delivery Method Room Air Blood Pressure (90/60-120/80) 144/74 H 188/75 H Blood Pressure Mean (mm Hg) 97 112 Source Monitor Monitor Position Semi-Fowlers Semi-Fowlers Blood Pressure Location Left Arm Left Arm History Since Last Visit- (Skip if this is Patient's initial visit) Have you changed medications since your No No last visit? Any new allergies or adverse reactions No No Had a fall/change in ADL's that may No No increase risk of falls Signs or symptoms of abuse and/or No No neglect since last visit Have you been in the hospital since your No No last visit? Has dressing in place as prescribed Yes Yes Has compression in place as prescribed Yes Yes Has offloadiing in place as prescribed N/A N/A Experienced any changes in pain level or No No management Left Footwear Slipper No Footwear Right Footwear Slipper No Footwear Pain Scale: 0-10 Numeric Is Patient Pain Free? Yes Yes WC - Nurse 1 - General Ulcer Measurement Start: 07/01/24 09:14 Freq: Status: Active Protocol: Activity Type Activity Date Activity User E-sign Co-sign Detail Recorded Client Recorded Date Recorded By Document 07/01/24 09:14 KW [id number] 07/01/24 09:18 KW Document 07/15/24 09:14 RB [id number] 07/15/24 09:23 RB 07/01/24 07/15/24 09:14 09:14 Wound Center Nurse 1 #1 L Heel -Combined with other wound No -Current Size (cm) - Length 3.4 -Current Size (cm) - Width 3.4 -Current Size (cm) - Depth 0.1 -Total Square Cm 11.56 -Photo Taken Yes -Tunneling No -Undermining/Tunneling No -Circular Undermining No -Exudate Amt Medium -Exudate Type Serosanguineous -Wound Margin Distinct, Outline Attached -Granulation Amt Medium (34-66%) -Granulation Quality [place] -Slough/Fibrin Yes -Necrosis Amt Medium (34-66%) -Necrotic Tissue Type Adherent Slough -Structure Exposed N/A -Texture (Bren-wound Skin Appearance) Scarring -Moisture (Bren-wound Skin Appearance) Maceration -Color (Bren-wound Skin Appearance) Assessed -Temperature (Bren-wound Skin No Abnormality Appearance) (Pt Warm) -Tenderness on Palpation (Bren-wound No Skin Appearance) -Ulcer Cleansing Wound Cleanser -Foul Odor after Cleansing No -Anesthetic Used 5% Lidocaine Gel 24 lt heel -Current Size (cm) - Length 3.5 -Current Size (cm) - Width 2.5 -Current Size (cm) - Depth 0.1 -Total Square Cm 8.75 -Date of Last Picture (Recall this 07/01/24 field) -Exudate Amt Small -Exudate Type Serosanguineous -Wound Margin Distinct, Outline Attached -Granulation Amt Small (1-33%) -Granulation Quality Red -Necrosis Amt Large (67-100%) -Necrotic Tissue Type Adherent Slough -Texture (Bren-wound Skin Appearance) Assessed -Moisture (Bren-wound Skin Appearance) Assessed -Color (Bren-wound Skin Appearance) Assessed -Temperature (Bren-wound Skin No Abnormality Appearance) (Pt Warm) -Tenderness on Palpation (Bren-wound No Skin Appearance) -Ulcer Cleansing Rinsed/ Irrigated with Saline -Foul Odor after Cleansing No -Anesthetic Used 5% Lidocaine Gel Lower Limb Edema Present Yes Left Calf (cm) 36 Left Ankle (cm) 24.9 WC - Nurse 2 - General Ulcer CM Notes Start: 07/01/24 09:14 Freq: Status: Active Protocol: Activity Type Activity Date Activity User E-sign Co-sign Detail Recorded Client Recorded Date Recorded By Document 07/01/24 10:05 JAUN [id number] 07/01/24 10:06 Document 07/15/24 09:37 [id number] 07/15/24 09:46 07/01/24 07/15/24 10:05 09:37 Wound Center Nurse 2 24 lt heel -Time 10:05 09:37 -Correct Patient Yes Yes -Correct Side, Site, Position Yes Yes -Correct Procedure Yes Yes -Procedure Performed Yes Yes -Type of Procedure Debridement Debridement -Clinical Debridement Subcutaneous Subcutaneous -Tissue Removed Subcutaneous Subcutaneous -Post Debridement (cm) - Length 2.8 3.2 -Post Debridement (cm) - Width 3.2 3.3 -Post Debridement (cm) - Depth 0.1 0.1 -Total Square (Post) (cm) 8.96 10.56 -Area of Debridement (cm) - Length 2.8 3.2 -Area of Debridement (cm) - Width 3.2 3.3 -Total Square (Area) (cm) 8.96 10.56 -Tunneling No No -Undermining/Tunneling No No -Circular Undermining No No -Wound/Ulcer Outcome Not Healed Not Healed -Ulcer Cleansing Rinsed/ Rinsed/ Irrigated with Irrigated with Saline Saline -Foul Odor after Cleansing No No -Bioengineered Tissue No Yes -Type of Bioengineered Tissue Epicord -Expiration Date 11/30/28 -Product Lot Number [id number] -Percent Used 100 -Lot number of Saline Used [id number] -Bleeding Controlled with Pressure Pressure -Treatment Response Procedure Procedure Tolerated Well Tolerated Well -Offloading No No -Pressure Reduction Wheelchair cushion -Debridement - Subq, 1st 20sq cm Yes No -Apply Skin Sub - 1st 25 sq cm - Feet 1 -Epicord Application 1-4 (per sq cm) 6 Pain Scale: 0-10 Numeric Is Patient Pain Free? Yes Yes WC - Nurse 3 - General Ulcer D/C NN Start: 07/01/24 09:14 Freq: Status: Active Protocol: Activity Type Activity Date Activity User E-sign Co-sign Detail Recorded Client Recorded Date Recorded By Document 07/01/24 10:11 VA [id number] 07/01/24 10:15 VA 07/01/24 10:11 Wound Care Center Nurse 3 24 lt heel -Ulcer Cleansing Rinsed/ Irrigated with Saline -Foul Odor after Cleansing No -Negative Pressure Wound Therapy N/A -Primary Dressing Covered/Secured with Dry Gauze & Roll Gauze, Secured with Tape -Wound Comment(s) pt brought own santyl LLE -Tubular Bandage Double Layer -Size of Tubigrip Used Size E -Size E ($) 2 -Stockings No Pain Scale: 0-10 Numeric Is Patient Pain Free? Yes Assessment/Plan Assessment/Plan (1) Non-pressure chronic ulcer of left heel and midfoot with fat layer exposed: CODE(S): L97.422 - Non-pressure chronic ulcer of left heel and midfoot with fat layer exposed PLAN: Patient was examined and evaluated. All findings were discussed with the patient. All questions were answered to the patient's satisfaction. Excisional debridement down to and including subcutaneous tissue with a number 5 mm dermal curette to the left heel full-thickness wound done without incident. Predebridement measurement was 3.0 x 3.1 x 0.1 cm.. Postdebridement measurement is 3.2 x 3.3 x 0.1 cm. Epi cord 2.0 x 3.0 cm was applied to the left heel full-thickness ulceration with 100% use. First application. The graft site was free and clear of any infection. The wound/skin graft substitute was dressed with nonadherent bandage secured in place with Steri-Strips followed by bolster dressing as well as a double layer Tubigrip. Follow-up at the wound care center with Dr. Solano in 1 week.
--- NOTE | 2024-07-16 08:10 | WC ---
PHOTO 07/15/24 LEFT HEEL
[2024-07-22 09:21] VITALS: BP 151/77; PULSE 87; RESP 16; TEMP 36.4
--- NOTE | 2024-07-22 10:28 | PN.PCM_ITS ---
History of Present Illness Date of Service: 07/22/24 Chief Complaint: Left heel ulceration History of Wound: A 63-year-old female who presents to the wound care center today for left heel ulceration and bilateral lower extremity edema with multiple leg wounds secondary to previous blisters. In October 2019, patient had rubbing in shoes while shopping which led to a blister that developed into an ulceration. Patient was then seen by Prieto AmezquitaP.Usha. for wound care. Patient then became infected and was admitted to the hospital. Patient was noted to have OM on MRI. Patient wanted to avoid surgery so a snf course of appropriate IV antibiotics was the treatment chosen. Patient was also noted to have hyperglycemia and has worked with hospitalist and PCP to try to get better control. Blood sugar levels remain elevated. Patient also had LEAS obtained in the hospital which suggested patient had the proper blood flow to allow healing. Patient has since finished snf course of antibiotics. Patient has since been seen on a weekly basis in office with progression and regression of wound noted over the weeks. Patient has tried various dressing options including wet to dry and santyl. The most progress was noted with Santyl but patient ran out and was unable to refill due to insurance issues. During which time the wound regressed. She also has an offloading surgical shoe and offloading boot to relieve pressure. Patient care is henceforth being carried out at the wound care center. Patient not currently on any antibiotics. Patient has since began skin graft aplications significant improvement is been noted to her foot overall. Patient has finished epifix graft applications with some very small remaining wound noted to left heel. Patient has new wounds noted to bilateral third digits. The right 3rd digit wound has healed. Her left ankle ulcer remains healed Patient relates that ambulation is getting easier and she is rebuilding her strength slowly. She has not had any worsening of minor remaining heel wound since beginning ambulation again. 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 Her has been helping her change the dressings daily to the left heel. She had been following in the wound care center in 2021 for left heel ulceration but was subsequently lost to follow-up. She cites transportation issues. She presents to the wound care center today for continued care of her left heel ulceration and bilateral lower extremity wounds secondary to edema. Progress of Wound: Stable full-thickness wound left heel Subjective Subjective Ms. Winkler is a 63-year-old female presenting to clinic today for follow-up evaluation of full-thickness wound to the left heel. She is left the skin graft clean dry and intact. She also complains of a new wound to the lateral aspect of her right foot. She states that the new wound is from trauma using her rollator. Overall she is doing well. She is elevating compression as instructed. She is great for her care. Denies constitutional symptoms. No other pedal complaints at this time. Objective Data Objective Data Vital Signs: Vital Signs Temp Pulse Resp BP O2 Del Method 97.6 F L 87 16 151/77 H Room Air 07/22/24 09:21 07/22/24 09:21 07/22/24 09:21 07/22/24 09:21 07/22/24 09:21 Oxygen Delivery Method Room Air Physical Exam Narrative Vascular: DP and PT pulse are palpable to the bilateral lower extremity. CFT is brisk. Nonpitting edema appreciated bilateral lower extremity. Skin temperature great is warm to warm from proximal ankles to distal digits bilateral. Light touch intact. Patient does respond to painful stimuli. Dermatological: Full-thickness wound to the lateral right foot at the level of the fifth metatarsal head measuring 0.4 x 1.5 x 0.1 cm. Evidence of blister secondary to trauma to the 3rd and 4th digit distally. No sign of infection. Left heel full-thickness wound measures 3.0 x 3.2 x 0.1 cm. New left hallux abrasion measures 0.8 x 0.8 x 0.1 cm. All wound bases are granular nature with no sign of infection. Excisional debridement down to including subcutaneous tissue with a number 3 mm dermal curette to the lateral right foot full-thickness wound done without incident. Predebridement measurement was callus. Postdebridement measurement was 0.4 x 1.5 x 0.1 cm. Excisional debridement down to including subcutaneous tissue with a number 3 mm dermal curette to the left dorsal hallux full-thickness wound done without incident. Predebridement measurement was 0.5 x 0.5 x 0.1 cm. Postdebridement measurement 0.8 x 0.8 x 0.1 cm. Excisional debridement down to and including subcutaneous tissue with a number 5 mm dermal curette to the left heel full-thickness wound done without incident. Predebridement measurement was 2.8 x 3.0 x 0.1 cm. Postdebridement measurement is 3.0 x 3.2 x 0.1 cm. Epi cord 2.0 x 3.0 cm was applied to the left heel full-thickness ulceration with 100% use. Second application. The graft site was free and clear of any infection. The wound/skin graft substitute was dressed with nonadherent bandage secured in place with Steri-Strips followed by bolster dressing as well as a double layer Tubigrip. Musculoskeletal: No pain to palpation to the full-thickness wound to left heel. No pain with calf pressure. Debridement Note Debridement Note Debridement Free Text: Excisional debridement down to including subcutaneous tissue with a number 3 mm dermal curette to the lateral right foot full- thickness wound done without incident. Predebridement measurement was callus. Postdebridement measurement was 0.4 x 1.5 x 0.1 cm. Excisional debridement down to including subcutaneous tissue with a number 3 mm dermal curette to the left dorsal hallux full-thickness wound done without incident. Predebridement measurement was 0.5 x 0.5 x 0.1 cm. Postdebridement measurement 0.8 x 0.8 x 0.1 cm. Excisional debridement down to and including subcutaneous tissue with a number 5 mm dermal curette to the left heel full-thickness wound done without incident. Predebridement measurement was 2.8 x 3.0 x 0.1 cm. Postdebridement measurement is 3.0 x 3.2 x 0.1 cm. Epi cord 2.0 x 3.0 cm was applied to the left heel full-thickness ulceration with 100% use. Second application. The graft site was free and clear of any infection. The wound/skin graft substitute was dressed with nonadherent bandage secured in place with Steri-Strips followed by bolster dressing as well as a double layer Tubigrip. Post-Debridement Measurements and Additional Note: Post-Debridement Measurements/Treatment SAMARIA - Nurse 1 - General Ulcer Assessment Start: 07/01/24 09:14 Freq: Status: Active Protocol: MOOK Activity Type Activity Date Activity User E-sign Co-sign Detail Recorded Client Recorded Date Recorded By Document 07/01/24 09:14 KW [id number] 07/01/24 09:18 KW Document 07/15/24 09:14 RB [id number] 07/15/24 09:23 RB Document 07/22/24 09:21 GM [id number] 07/22/24 09:22 GM 07/01/24 07/15/24 07/22/24 09:14 09:14 09:21 WC - Today's Visit Information Type of service Follow-up Visit Follow-up Visit Follow-up Visit (Physician/FIXTURE RELAMPER (Physician/FIXTURE RELAMPER (Physician/FIXTURE RELAMPER ) ) ) Arrival Mode Wheelchair Wheelchair Wheelchair Transfer Assistance Manual Manual Patient Identification Verified (Name & Yes Yes Yes ) Patient Requires Transmission-Based No Precautions Vital Signs Temperature (97.8 F-99.1 F) 96.6 F L 96.9 F L 97.6 F L Temperature Source Temporal Temporal Temporal Pulse Rate (60-100) 86 85 87 Pulse Location Monitor Monitor Monitor Respiratory Rate (12-18) 18 18 16 Respiratory rate source Observation Observation Observation Oxygen Delivery Method Room Air Room Air Blood Pressure (90/60-120/80) 144/74 H 188/75 H 151/77 H Blood Pressure Mean (mm Hg) 97 112 101 Source Monitor Monitor Monitor Position Semi-Fowlers Semi-Fowlers Sitting Blood Pressure Location Left Arm Left Arm Right Arm History Since Last Visit- (Skip if this is Patient's initial visit) Have you changed medications since your No No No last visit? Any new allergies or adverse reactions No No No Had a fall/change in ADL's that may No No No increase risk of falls Signs or symptoms of abuse and/or No No No neglect since last visit Have you been in the hospital since your No No No last visit? Has dressing in place as prescribed Yes Yes Yes Has compression in place as prescribed Yes Yes Yes Has offloadiing in place as prescribed N/A N/A Yes Experienced any changes in pain level or No No No management Left Footwear Slipper No Footwear Other Footwear (Comment) Right Footwear Slipper No Footwear Other Footwear (Comment) Pain Scale: 0-10 Numeric Is Patient Pain Free? Yes Yes Yes - Nurse 1 - General Ulcer Measurement Start: 07/01/24 09:14 Freq: Status: Active Protocol: Activity Type Activity Date Activity User E-sign Co-sign Detail Recorded Client Recorded Date Recorded By Document 07/01/24 09:14 KW [id number] 07/01/24 09:18 KW Document 07/15/24 09:14 RB [id number] 07/15/24 09:23 RB Document 07/22/24 09:21 GM [id number] 07/22/24 09:22 07/01/24 07/15/24 07/22/24 09:14 09:14 09:21 Wound Center Nurse 1 #1 L Heel -Combined with other wound No -Current Size (cm) - Length 3.4 -Current Size (cm) - Width 3.4 -Current Size (cm) - Depth 0.1 -Total Square Cm 11.56 -Photo Taken Yes -Tunneling No -Undermining/Tunneling No -Circular Undermining No -Exudate Amt Medium -Exudate Type Serosanguineous -Wound Margin Distinct, Outline Attached -Granulation Amt Medium (34-66%) -Granulation Quality [place] -Slough/Fibrin Yes -Necrosis Amt Medium (34-66%) -Necrotic Tissue Type Adherent Slough -Structure Exposed N/A -Texture (Bren-wound Skin Appearance) Scarring -Moisture (Bren-wound Skin Appearance) Maceration -Color (Bren-wound Skin Appearance) Assessed -Temperature (Bren-wound Skin No Abnormality Appearance) (Pt Warm) -Tenderness on Palpation (Bren-wound No Skin Appearance) -Ulcer Cleansing Wound Cleanser -Foul Odor after Cleansing No -Anesthetic Used 5% Lidocaine Gel 24 lt heel -Current Size (cm) - Length 3.5 2.5 -Current Size (cm) - Width 2.5 2.0 -Current Size (cm) - Depth 0.1 0.1 -Total Square Cm 8.75 5.00 -Date of Last Picture (Recall this 07/01/24 field) -Photo Taken No -Epithelialization Small 1-33% -Undermining/Tunneling No -Circular Undermining No -Exudate Amt Small Medium -Exudate Type Serosanguineous Yellow/Green -Wound Margin Distinct, Distinct, Outline Outline Attached Attached -Granulation Amt Small (1-33%) Small (1-33%) -Granulation Quality Red [place] -Slough/Fibrin Yes -Necrosis Amt Large (67-100%) -Necrotic Tissue Type Adherent Slough Adherent Slough -Texture (Bren-wound Skin Appearance) Assessed Assessed -Moisture (Bren-wound Skin Appearance) Assessed Assessed -Color (Bren-wound Skin Appearance) Assessed Assessed -Temperature (Bren-wound Skin No Abnormality No Abnormality Appearance) (Pt Warm) (Pt Warm) -Tenderness on Palpation (Bren-wound No No Skin Appearance) -Ulcer Cleansing Rinsed/ Soap and Water Irrigated with Saline -Foul Odor after Cleansing No -Anesthetic Used 5% Lidocaine 5% Lidocaine Gel Gel Lower Limb Edema Present Yes Yes Right Calf (cm) 40 Right Ankle (cm) 25 Left Calf (cm) 36 37 Left Ankle (cm) 24.9 23 - Nurse 2 - General Ulcer CM Notes Start: 07/01/24 09:14 Freq: Status: Active Protocol: Activity Type Activity Date Activity User E-sign Co-sign Detail Recorded Client Recorded Date Recorded By Document 07/01/24 10:05 JAUN [id number] 07/01/24 10:06 JF Document 07/15/24 09:37 JF [id number] 07/15/24 09:46 JF Document 07/22/24 09:36 DS [id number] 07/22/24 09:47 DS 07/01/24 07/15/24 07/22/24 10:05 09:37 09:36 Wound Center Nurse 2 #26 Left Hallux -Time 09:40 -Correct Patient Yes -Correct Side, Site, Position Yes -Correct Procedure Yes -Procedure Performed Yes -Type of Procedure Debridement -Clinical Debridement Subcutaneous -Tissue Removed Subcutaneous -Post Debridement (cm) - Length 0.8 -Post Debridement (cm) - Width 0.8 -Post Debridement (cm) - Depth 0.1 -Total Square (Post) (cm) 0.64 -Area of Debridement (cm) - Length 0.8 -Area of Debridement (cm) - Width 0.8 -Total Square (Area) (cm) 0.64 -Tunneling No -Undermining/Tunneling No -Circular Undermining No -Wound/Ulcer Outcome Not Healed -Foul Odor after Cleansing No -Bioengineered Tissue No -Bleeding Controlled with Pressure -Treatment Response Procedure Tolerated Well -Debridement - Subq, 1st 20sq cm No #25 right lateral foot -Time 09:40 -Correct Patient Yes -Correct Side, Site, Position Yes -Correct Procedure Yes -Procedure Performed Yes -Type of Procedure Debridement -Clinical Debridement Subcutaneous -Tissue Removed Subcutaneous -Post Debridement (cm) - Length 0.4 -Post Debridement (cm) - Width 1.5 -Post Debridement (cm) - Depth 0.1 -Total Square (Post) (cm) 0.60 -Area of Debridement (cm) - Length 0.4 -Area of Debridement (cm) - Width 1.5 -Total Square (Area) (cm) 0.60 -Tunneling No -Undermining/Tunneling No -Circular Undermining No -Wound/Ulcer Outcome Not Healed -Ulcer Cleansing Rinsed/ Irrigated with Saline -Foul Odor after Cleansing No -Bioengineered Tissue No -Debridement - Subq, 1st 20sq cm No 24 lt heel -Time 10:05 09:37 09:36 -Correct Patient Yes Yes Yes -Correct Side, Site, Position Yes Yes Yes -Correct Procedure Yes Yes Yes -Procedure Performed Yes Yes Yes -Type of Procedure Debridement Debridement Debridement -Clinical Debridement Subcutaneous Subcutaneous Subcutaneous -Tissue Removed Subcutaneous Subcutaneous Subcutaneous -Post Debridement (cm) - Length 2.8 3.2 3.0 -Post Debridement (cm) - Width 3.2 3.3 3.2 -Post Debridement (cm) - Depth 0.1 0.1 0.1 -Total Square (Post) (cm) 8.96 10.56 9.60 -Area of Debridement (cm) - Length 2.8 3.2 3.0 -Area of Debridement (cm) - Width 3.2 3.3 3.2 -Total Square (Area) (cm) 8.96 10.56 9.60 -Tunneling No No No -Undermining/Tunneling No No No -Circular Undermining No No No -Wound/Ulcer Outcome Not Healed Not Healed Not Healed -Ulcer Cleansing Rinsed/ Rinsed/ Rinsed/ Irrigated with Irrigated with Irrigated with Saline Saline Saline -Foul Odor after Cleansing No No No -Bioengineered Tissue No Yes Yes -Type of Bioengineered Tissue Epicord Epicord -Expiration Date 11/30/28 11/30/28 -Product Lot Number [id number] -Percent Used 100 100 -Lot number of Saline Used [id number] 05-30-2027 -Bleeding Controlled with Pressure Pressure Pressure -Treatment Response Procedure Procedure Procedure Tolerated Well Tolerated Well Tolerated Well -Offloading No No -Pressure Reduction Wheelchair cushion -Debridement - Subq, 1st 20sq cm Yes No No -Apply Skin Sub - 1st 25 sq cm - Feet 1 1 -Epicord Application 1-4 (per sq cm) 6 6 Pain Scale: 0-10 Numeric Is Patient Pain Free? Yes Yes Yes WC - Nurse 3 - General Ulcer D/C NN Start: 07/01/24 09:14 Freq: Status: Active Protocol: Activity Type Activity Date Activity User E-sign Co-sign Detail Recorded Client Recorded Date Recorded By Document 07/01/24 10:11 MT [id number] 07/01/24 10:15 MT Document 07/15/24 09:57 CP [id number] 07/15/24 09:58 CP Document 07/22/24 10:15 GM [id number] 07/22/24 10:17 GM 07/01/24 07/15/24 07/22/24 10:11 09:57 10:15 Wound Care Center Nurse 3 #26 Left Hallux -Ulcer Cleansing Not Cleansed -Foul Odor after Cleansing No -Primary Dressing Covered/Secured with Dry Gauze, Secured with Tape,Other -Other Covering Bactroban #25 right lateral foot -Ulcer Cleansing Not Cleansed -Foul Odor after Cleansing No -Negative Pressure Wound Therapy N/A -Primary Dressing Covered/Secured with Dry Gauze & Roll Gauze, Secured with Tape -Other Covering Bactroban 24 lt heel -Ulcer Cleansing Rinsed/ Not Cleansed Irrigated with Saline -Foul Odor after Cleansing No No -Negative Pressure Wound Therapy N/A N/A -Primary Dressing Covered/Secured with Dry Gauze & Dry Gauze & Dry Gauze & Roll Gauze, Roll Gauze, Roll Gauze, Secured with Secured with Secured with Tape Tape Tape -Wound Comment(s) pt brought own santyl RLE -Lotion applied to leg before Yes compression wrap -Tubular Bandage Double Layer -Size of Tubigrip Used Size F -Size F ($) 2 LLE -Lotion applied to leg before Yes compression wrap -Tubular Bandage Double Layer Double Layer Double Layer -Size of Tubigrip Used Size E Size E Size F -Size E ($) 2 2 -Size F ($) 2 -Stockings No Pain Scale: 0-10 Numeric Is Patient Pain Free? Yes Yes Yes WC - Visit Discharge Discharge Condition Stable Stable Ambulatory Status Wheelchair Wheelchair Transportation Private Auto Private Auto Clinical Summary of Care Provided Yes Yes Facility Type Home Health Orders Sent Yes Assessment/Plan Assessment/Plan (1) Contusion of right foot: CODE(S): S90.31XA - Contusion of right foot, initial encounter QUALIFIERS: Encounter type: initial encounter Qualified Code(s): S90.31XA - Contusion of right foot, initial encounter PLAN: Topical anesthesia was applied to the right lesser digits 3 and 4. Once confirmed. The hematoma was drained using a #15 blade. The upper skin was left intact and the area was dressed with Betadine paint and dry sterile dressing. (2) Non-pressure chronic ulcer of left heel and midfoot with fat layer exposed: CODE(S): L97.422 - Non-pressure chronic ulcer of left heel and midfoot with fat layer exposed PLAN: Patient was examined and evaluated. All findings were discussed with the patient. All questions were answered to the patient's satisfaction. Excisional debridement down to including subcutaneous tissue with a number 3 mm dermal curette to the lateral right foot full-thickness wound done without incident. Predebridement measurement was callus. Postdebridement measurement was 0.4 x 1.5 x 0.1 cm. Excisional debridement down to including subcutaneous tissue with a number 3 mm dermal curette to the left dorsal hallux full-thickness wound done without incident. Predebridement measurement was 0.5 x 0.5 x 0.1 cm. Postdebridement measurement 0.8 x 0.8 x 0.1 cm. Excisional debridement down to and including subcutaneous tissue with a number 5 mm dermal curette to the left heel full-thickness wound done without incident. Predebridement measurement was 2.8 x 3.0 x 0.1 cm. Postdebridement measurement is 3.0 x 3.2 x 0.1 cm. Epi cord 2.0 x 3.0 cm was applied to the left heel full-thickness ulceration with 100% use. Second application. The graft site was free and clear of any infection. The wound/skin graft substitute was dressed with nonadherent bandage secured in place with Steri-Strips followed by bolster dressing as well as a double layer Tubigrip. The bilateral full-thickness wounds to the lateral right foot and left hallux were dressed with triple antibiotic and covered with dry sterile dressing and compression wraps were donned to the bilateral lower extremity after graft was placed to the left heel. Educated patient to watch her feet especially when at home using her rollator which she is understanding of. No concern for fractures at this time. Follow-up at the wound care center with Dr. Solano in 1 week. (3) Non-pressure chronic ulcer of other part of right foot with fat layer exposed: CODE(S): L97.512 - Non-pressure chronic ulcer of other part of right foot with fat layer exposed
[2024-07-29 10:09] VITALS: BP 168/87; PULSE 89; RESP 18
--- NOTE | 2024-07-29 14:01 | WC ---
PHOTO 07/29/24 LEFT HALLUX
--- NOTE | 2024-07-29 14:03 | WC ---
PHOTO 07/29/24 RIGHT LATERAL FOOT
--- NOTE | 2024-07-29 14:04 | WC ---
PHOTO 07/29/24 RIGHT HEEL
--- NOTE | 2024-07-29 14:04 | WC ---
PHOTO 07/29/24 LT MARY
--- NOTE | 2024-08-03 10:52 | PCM.WC.PN ---
History of Present Illness Date of Service: 07/29/24 Chief Complaint: Left heel ulceration History of Wound: A 63-year-old female who presents to the wound care center today for left heel ulceration and bilateral lower extremity edema with multiple leg wounds secondary to previous blisters. In October 2019, patient had rubbing in shoes while shopping which led to a blister that developed into an ulceration. Patient was then seen by Prieto [email or web address].Usha. for wound care. Patient then became infected and was admitted to the hospital. Patient was noted to have OM on MRI. Patient wanted to avoid surgery so a shelter course of appropriate IV antibiotics was the treatment chosen. Patient was also noted to have hyperglycemia and has worked with hospitalist and PCP to try to get better control. Blood sugar levels remain elevated. Patient also had LEAS obtained in the hospital which suggested patient had the proper blood flow to allow healing. Patient has since finished shelter course of antibiotics. Patient has since been seen on a weekly basis in office with progression and regression of wound noted over the weeks. Patient has tried various dressing options including wet to dry and santyl. The most progress was noted with Santyl but patient ran out and was unable to refill due to insurance issues. During which time the wound regressed. She also has an offloading surgical shoe and offloading boot to relieve pressure. Patient care is henceforth being carried out at the wound care center. Patient not currently on any antibiotics. Patient has since began skin graft aplications significant improvement is been noted to her foot overall. Patient has finished epifix graft applications with some very small remaining wound noted to left heel. Patient has new wounds noted to bilateral third digits. The right 3rd digit wound has healed. Her left ankle ulcer remains healed Patient relates that ambulation is getting easier and she is rebuilding her strength slowly. She has not had any worsening of minor remaining heel wound since beginning ambulation again. 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 Her has been helping her change the dressings daily to the left heel. She had been following in the wound care center in 2021 for left heel ulceration but was subsequently lost to follow-up. She cites transportation issues. She presents to the wound care center today for continued care of her left heel ulceration and bilateral lower extremity wounds secondary to edema. Progress of Wound: Stable full-thickness wound left heel Subjective Subjective Patient is a 63-year-old female present to clinic today for follow-up evaluation of left heel wound with amniotic skin graft substitute. Patient states that she does have some new wounds to the right lateral foot as well as great toe of the left foot. She admits to some trauma due to her walker. When asked what happened she states that she was not paying attention nor was she wearing shoe gear when it happened. She denies constitutional symptoms. No other pedal complaints at this time. Objective Data Objective Data Vital Signs: Vital Signs Temp Pulse Resp BP O2 Del Method 97.6 F L 89 18 168/87 H Room Air 07/22/24 09:21 07/29/24 10:07/29/24 10:09 07/29/24 10:07/29/24 10:09 Oxygen Delivery Method Room Air Physical Exam Narrative Vascular: DP and PT pulse are palpable to the bilateral lower extremity. CFT is brisk. Nonpitting edema appreciated bilateral lower extremity. Skin temperature great is warm to warm from proximal ankles to distal digits bilateral. Light touch intact. Patient does respond to painful stimuli. Dermatological: Full-thickness wound to the lateral right foot at the level of the fifth metatarsal head measuring 0.3 x 1.4 x 0.1 cm. Left heel full-thickness wound measures 2.5 x 2.8 x 0.1 cm. Left hallux abrasion measures 0.8 x 0.7 x 0.1 cm. All wound bases are granular nature with no sign of infection. Excisional debridement down to including subcutaneous tissue with a number 3 mm dermal curette to the lateral right foot full-thickness wound done without incident. Predebridement measurement was callus. Postdebridement measurement was 0.3 x 0.7 x 0.1 cm. Excisional debridement down to including subcutaneous tissue with a number 3 mm dermal curette to the left dorsal hallux full-thickness wound done without incident. Predebridement measurement was 0.6 x 0.6 x 0.1 cm. Postdebridement measurement 0.8 x 0.7 x 0.1 cm. Excisional debridement down to and including subcutaneous tissue with a number 5 mm dermal curette to the left heel full-thickness wound done without incident. Predebridement measurement was 2.3 x 2.6 x 0.1 cm. Postdebridement measurement is 2.5 x 2.8 x 0.1 cm. Epifix Mesh 4.0 x 4.5 mm was applied to the left heel full-thickness ulceration with 100% use. Third application. The graft site was free and clear of any infection. The wound/skin graft substitute was dressed with nonadherent bandage secured in place with Steri-Strips followed by bolster dressing as well as a double layer Tubigrip. Musculoskeletal: No pain to palpation to the full-thickness wound to left heel. No pain with calf pressure. Debridement Note Debridement Note Debridement Free Text: Excisional debridement down to including subcutaneous tissue with a number 3 mm dermal curette to the lateral right foot full-thickness wound done without incident. Predebridement measurement was callus. Postdebridement measurement was 0.3 x 0.7 x 0.1 cm. Excisional debridement down to including subcutaneous tissue with a number 3 mm dermal curette to the left dorsal hallux full-thickness wound done without incident. Predebridement measurement was 0.6 x 0.6 x 0.1 cm. Postdebridement measurement 0.8 x 0.7 x 0.1 cm. Excisional debridement down to and including subcutaneous tissue with a number 5 mm dermal curette to the left heel full-thickness wound done without incident. Predebridement measurement was 2.3 x 2.6 x 0.1 cm. Postdebridement measurement is 2.5 x 2.8 x 0.1 cm. Epifix Mesh 4.0 x 4.5 mm was applied to the left heel full-thickness ulceration with 100% use. Third application. The graft site was free and clear of any infection. The wound/skin graft substitute was dressed with nonadherent bandage secured in place with Steri-Strips followed by bolster dressing as well as a double layer Tubigrip. Assessment/Plan Assessment/Plan (1) Non-pressure chronic ulcer of left heel and midfoot with fat layer exposed: CODE(S): L97.422 - Non-pressure chronic ulcer of left heel and midfoot with fat layer exposed PLAN: Patient was examined and evaluated. All findings were discussed with the patient. All questions were answered to the patient's satisfaction. Excisional debridement down to including subcutaneous tissue with a number 3 mm dermal curette to the lateral right foot full-thickness wound done without incident. Predebridement measurement was callus. Postdebridement measurement was 0.3 x 0.7 x 0.1 cm. Excisional debridement down to including subcutaneous tissue with a number 3 mm dermal curette to the left dorsal hallux full-thickness wound done without incident. Predebridement measurement was 0.6 x 0.6 x 0.1 cm. Postdebridement measurement 0.8 x 0.7 x 0.1 cm. Excisional debridement down to and including subcutaneous tissue with a number 5 mm dermal curette to the left heel full-thickness wound done without incident. Predebridement measurement was 2.3 x 2.6 x 0.1 cm. Postdebridement measurement is 2.5 x 2.8 x 0.1 cm. Epifix Mesh 4.0 x 4.5 mm was applied to the left heel full-thickness ulceration with 100% use. Third application. The graft site was free and clear of any infection. The wound/skin graft substitute was dressed with nonadherent bandage secured in place with Steri-Strips followed by bolster dressing as well as a double layer Tubigrip. The bilateral full-thickness wounds to the lateral right foot and left hallux were dressed with triple antibiotic and covered with dry sterile dressing and compression wraps were donned to the bilateral lower extremity after graft was placed to the left heel. Educated patient to watch her feet especially when at home using her rollator which she is understanding of. No concern for fractures at this time. Follow-up at the wound care center with Dr. Solano in 1 week. (2) Non-pressure chronic ulcer of other part of right foot with fat layer exposed: CODE(S): L97.512 - Non-pressure chronic ulcer of other part of right foot with fat layer exposed (3) Non-pressure chronic ulcer of other part of left foot with fat layer exposed: CODE(S): L97.522 - Non-pressure chronic ulcer of other part of left foot with fat layer exposed
== END 2024-07-29 23:59 | disposition home or self-care (01) ==
LOC: WC 09:00
PROVIDERS: PCP Family Medicine; Referring Provider Podiatrist Foot & Ankle Surgery; Visit Provider Podiatrist Foot & Ankle Surgery
DX: L97.422 Non-pressure chronic ulcer of left heel and midfoot with fat layer exposed (principal); L97.512 Non-pressure chronic ulcer of other part of right foot with fat layer exposed; L97.522 Non-pressure chronic ulcer of other part of left foot with fat layer exposed; R73.9 Hyperglycemia, unspecified; S90.31XA Contusion of right foot, initial encounter; Z96.649 Presence of unspecified artificial hip joint
CPT/HCPCS: 11042; 15275; Q4186; Q4187

== ENCOUNTER 2024-07-31 14:39 | Emergency (ER) | payer MEDICARE, MEDICAID, SELFPAY ==
[2024-07-31] VITALS (9 sets, daily range): BP systolic 112–155; BP diastolic 60–80; PULSE 82–92; RESP 14–18; TEMP 36.8–37.1; O2SAT 96–99; BMI 26.9
--- NOTE | 2024-07-31 14:47 | EKG12_ITS ---
Test Reason : Blood Pressure : */* mmHG Vent. Rate : 92 BPM Atrial Rate : 92 BPM P-R Int : 178 ms QRS Dur : 88 ms QT Int : 376 ms P-R-T Axes : 60 9 55 degrees QTcB Int : 464 ms Normal sinus rhythm Normal ECG Confirmed by ALYSSIA AMEZCUA, KARLA ([id number]), publications editor RAFI DOMINGO ([id number]) on 08/07/2024 12:40:37 PM Referred By: Julian Solano Confirmed By: KARLA CADE MD
[2024-07-31 15:18] LABS: Bacteria 0 SEEN /hpf (None Seen); Mucous, Urine 0 SEEN /hpf (<or=2+)
--- NOTE | 2024-07-31 15:20 | EX.ED.DYSGE1 ---
HPI History of Present Illness Chief Complaint: Complaint Narrative Narrative: 63-year-old female states she had her usual dialysis yesterday and started feeling poorly afterwards and has since. Home health nurse checked on her today, and reports to EMS and said that her blood pressure was 70/50 while patient was sitting not feeling lightheaded or any other acute symptoms at the time, and the patient urinated some blood. She states she uncommonly urinates, and the only other time she urinated blood she had an infection a month ago, she was treated with antibiotics, she had some improvement transiently but now she is feeling bad again like maybe she has a urinary tract infection. She states it has burn to pee for the last month and it was better/improved while on antibiotics. She denies any abdominal pain or back pain. She denies fevers or chills. She denies any other symptoms or feeling lightheaded at all. She has a wound on her left foot which is chronically sore, she had some grafts put on it and wound care, saw podiatry 2 days ago who was very happy with that and it has been doing better. 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), managed as type 1 Autonomic neuropathy Chronic CHF (congestive heart failure) Genital herpes Gastroparesis due to DM Urinary tract infection UTI (urinary tract infection) Altered gait Colitis Proctitis Ulcer of left ankle Non-pressure chronic ulcer of other part of left foot with fat layer exposed Personal history of colonic polyps Pressure ulcer of left heel, stage 2 Pain in left foot Osteomyelitis Ulcer of left heel Severe sepsis Hypoglycemia due to insulin Stage 5 chronic kidney disease due to type 2 diabetes mellitus Long-term insulin use Walker as ambulation aid History of renal disease Difficulty chewing History of renal dialysis Accidental fall Depression Uses wheelchair Arthritis Bilateral pleural effusion CKD (chronic kidney disease) stage 4, GFR 15-29 ml/min Anemia Diabetes mellitus with hyperglycemia Transfusion of blood during current hospitalisation Symptomatic anemia Diabetes HTN (hypertension) Closed intertrochanteric fracture of left hip Wears glasses Insulin dependent diabetes mellitus Low iron Excessive bleeding High cholesterol Migraine headache Injury of head and neck Syncope Vomiting Dietary restriction Gastric reflux Non-smoker History of edema History of echocardiogram History of stress test Cardiology follow-up encounter Hx of orthostatic hypotension Chronic pain syndrome Malnutrition Essential hypertension Vertigo Migraine without aura HLD (hyperlipidemia) Post-concussion syndrome History of orthostatic hypotension Home Medications ?Medication ?Instructions ?Recorded ?Last Taken ?Type aspirin 81 mg chewable tablet 81 mg PO QHS HEART HEALTH 12/15/19 11/20/22 History atorvastatin 40 mg tablet 40 mg PO QHS CHOLESTEROL 12/15/19 11/19/22 History insulin lispro 100 unit/mL 8 unit subcut TIDCM diabetes 01/06/22 03/13/23 History subcutaneous pen (Humalog KwikPen (U-100) Insulin) sertraline 50 mg tablet 50 mg PO QHS DEPRESSION 01/06/22 11/20/22 History flash glucose scanning reader #1 ea 12/07/22 Unknown Rx (FreeStyle Yane 2 [place]) flash glucose sensor (FreeStyle #2 ea 12/07/22 Unknown Rx Yane 2 Sensor kit) pantoprazole 40 mg tablet,delayed 40 mg PO Q12H 12/10/22 Unknown History release meclizine 25 mg tablet 12.5 mg (1/2 x 25 mg) PO BID PRN 10/01/23 Unknown Rx dizziness #10 tabs clopidogrel 75 mg tablet (Plavix) 75 mg PO DAILY #90 tabs 10/28/23 Unknown Rx pregabalin 75 mg capsule 75 mg PO DAILY 3 days #10 caps 04/09/24 Unknown Rx collagenase clostridium histo. 250 topical DAILY 06/09/24 Unknown History unit/gram topical ointment (Santyl) ammonium lactate 12 % topical cream 1 applic topical BID 06/19/24 Unknown History bisacodyl 5 mg tablet,delayed 10 mg PO ONCE PRN 06/19/24 Unknown History release calcium acetate(phosphat bind) 667 667 mg PO DAILY 06/19/24 Unknown History mg capsule insulin glargine 100 unit/mL (3 10 unit subcut QPM 06/19/24 Unknown History mL) subcutaneous pen (Lantus Solostar U-100 Insulin) midodrine 10 mg tablet 10 mg PO .COMPLEX PRN 06/19/24 Unknown History mometasone 0.1 % topical cream applic topical 06/19/24 Unknown History multivitamin 1 tab PO QAM 06/19/24 Unknown History ondansetron 4 mg disintegrating 4 mg PO Q8H PRN 06/19/24 Unknown History tablet polyethylene glycol 3350 17 17 g PO DAILY PRN 06/19/24 Unknown History gram/dose oral powder (ClearLax) tramadol 50 mg tablet 50 mg PO Q8H PRN pain 06/19/24 Unknown History ciprofloxacin HCl 500 mg tablet 500 mg PO Q24H #7 TABLETS 07/31/24 Unknown Rx Allergy/AdvReac Type Severity Reaction Status Date / Time metformin AdvReac Diarrhea Verified 07/31/24 14:44 Family History Mother Hypertension Father Cancer lymphoma, leukemia Emphysema of lung Hypertension Grandmother Diabetes CVA (cerebral vascular accident) Surgical History S/P arteriovenous (AV) graft repair S/P arteriovenous (AV) fistula repair S/P arteriovenous (AV) fistula creation S/P dialysis catheter insertion History of esophagogastroduodenoscopy (EGD) Hx of colonoscopy History of mandibular surgery History of cholecystectomy Social History (Updated 07/31/24 @ 14:45 by Hope Shrestha) household members: spouse and significant other housing: house Smoking Status: Never smoker alcohol intake: never substance use type: does not use ROS ROS ED Constitutional Constitutional ED: Denies chills or fever(s) Eyes Eyes: Denies change in vision or diplopia ENT ENT ED: Denies rhinorrhea or sore throat Cardiovascular Cardiovascular: Reports fatigue; Denies chest pain, lightheadedness, palpitations or syncope Respiratory/Chest Respiratory/Chest: Denies cough or dyspnea Gastrointestinal Gastrointestinal: Denies abdominal pain, diarrhea, nausea or vomiting Genitourinary Genitourinary ED: Reports dysuria, hematuria and oliguria; Denies flank pain Musculoskeletal Musculoskeletal: Denies back pain or neck pain Integumentary Reports wounds; Denies abscess or rash Neurologic Neurologic: Denies confusion, convulsions, headache(s) or weakness Psychiatric Psychiatric: Denies suicidal thoughts EXAM Physical Exam Const Vital Signs: 07/31/24 14:41 07/31/24 14:44 07/31/24 15:24 Temperature 98.2 F 98.2 F Temperature Source Oral Oral Pulse Rate 92 92 Respiratory Rate 16 18 Blood Pressure 138/77 H 138/77 H Blood Pressure Mean 97 97 Pulse Ox 99 98 96 Oxygen Delivery Method Room Air Room Air Room Air 07/31/24 15:44 07/31/24 16:00 07/31/24 17:00 Temperature 98.3 F 98.3 F 98.3 F Temperature Source Oral Oral Oral Pulse Rate 92 87 85 Respiratory Rate 16 18 18 Blood Pressure 130/78 H 112/60 112/80 Blood Pressure Mean 95 77 90 Pulse Ox 98 98 98 Oxygen Delivery Method Room Air 07/31/24 18:00 Temperature 98.6 F Temperature Source Oral Pulse Rate 84 Respiratory Rate 18 Blood Pressure 118/78 Blood Pressure Mean 91 Pulse Ox 96 Oxygen Delivery Method Room Air Positive well nourished and well developed General Appearance ED: well developed and NAD HEENT Reports moist mucous membranes normocephalic and atraumatic Eyes PERRL and EOMs intact bilaterally Neck full ROM and supple Resp normal respiratory effort and clear to auscultation bilaterally Cardio regular rate and regular rhythm Heart Sounds: murmur systolic I/ harsh left sternal border GI non-tender and non-distended Auscultation: normoactive bowel sounds Palpation: soft Back/Spine no CVA tenderness General Back: other FROM Extremity normal to inspection Extremity Narrative: Some mild tenderness on the left heel wound. No signs of infection no active drainage. General Extremety ED: Negative for edema or pulses abnormal General Extremity: Negative for edema or pulses abnormal Neuro oriented x3, CN's II-XII intact bilaterally and no sensory deficits noted Sensorium / Orientation: awake and alert Motor Exam: strength 5/5 throughout Skin no rashes or lesions noted Skin Narrative: Superficial wound on the left heel with a dressing, no active drainage or surrounding cellulitis MDM MDM MDM Narrative Medical decision making narrative: Patient's vital signs are all normal. She is not tachycardic. She is relatively well-appearing, feeling a little malaise does not appear septic. Her lactate is normal, other than her renal failure her blood work is unremarkable, her white blood count is only 3.5 lower than usual for her. Urine shows pyuria but it always does, in addition to leukocyte esterase, and blood as well as 0 bacteria. Unclear if this is infectious or not but given her history I think reasonable to treat her as if it is, she was given an empiric dose of IV Rocephin. I reviewed her prior culture results, the last 2 cultures both grew out Enterobacter cloacae complex. She states the last antibiotic she was on with Keflex. These cultures were resistant to Zosyn, but sensitive to sulfa and cipro and going to put her on cipro renal dosing and have her follow-up with urology if the hematuria persist despite antibiotic she is comfortable with that plan. Of note we had her here for 4 hours, she not once had any systemic symptoms or hypotension. Lab Data Attestation: I reviewed the patient's lab results. Labs: Laboratory Results - last 24 hr 07/31/24 07/31/24 15:02 15:12 WBC 3.5 L RBC 3.88 L Hgb 11.4 L Hct 36.5 L MCV 94.1 MCH 29.4 MCHC 31.2 L RDW Std Deviation 53.0 H RDW Coeff of Chris 15.2 H Plt Count 218 MPV 11.0 Immature Gran % (Auto) 0.300 Neut % (Auto) 48.9 Lymph % (Auto) 37.9 [place] % (Auto) 7.6 Eos % (Auto) 4.2 Baso % (Auto) 1.1 H Absolute Neuts (auto) 1.7 L Absolute Lymphs (auto) 1.34 Nucleated RBC % 0 PT 12.9 INR 1.0 APTT 28.1 Sodium 136 Potassium 4.2 Chloride 94 L Carbon Dioxide 27.8 Anion Gap 14 BUN 27 H Creatinine 4.47 H Estim Creat Clear Calc 13.27 L Est GFR (MDRD) Non-Af 11 L BUN/Creatinine Ratio 6.0 L Glucose 242 H Lactic Acid 1.9 Calcium 9.4 Total Bilirubin 0.21 AST 28 ALT 14 Alkaline Phosphatase 196 H Total Protein 6.9 Albumin 4.0 Globulin 2.9 Albumin/Globulin Ratio 1.4 Urine Color Red Urine Clarity Turbid Urine pH 7.[address] 1.010 Urine Protein 500 H Urine Glucose (UA) Normal Urine Ketones Negative Urine Occult Blood 250 H Urine Nitrite Negative Urine Bilirubin Negative Urine Urobilinogen Normal Ur Leukocyte Esterase 500 H Urine RBC > 100 SEEN Urine WBC >100 SEEN Ur Squamous Epith Cells 0-5 SEEN Amorphous Sediment 3+ Urine Bacteria 0 SEEN Urine Mucus 0 SEEN Discharge Plan Triage Chief Complaint: Complaint ED Provider: Lyle Moura Dx/Rx/DC Orders Clinical Impression: Hematuria, Chronic kidney disease, stage V requiring chronic dialysis, Transient hypotension Instructions: ED Hematuria, ED UTIs Women Prescriptions: New ciprofloxacin HCl 500 mg tablet 500 mg PO Q24H Qty: 7 0RF Rx Instructions: On dialysis days, take after dialysis Continued (DME) FreeStyle Yane 2 [place] Misc See Rx Instructions .Route Qty: 1 0RF Rx Instructions: As directed (DME) FreeStyle Yane 2 Sensor Kit See Rx Instructions .Route Qty: 2 6RF Rx Instructions: As directed pantoprazole 40 mg tablet,delayed release (DR/EC) 40 mg PO Q12H midodrine 10 mg tablet 10 mg PO .COMPLEX PRN Rx Instructions: 10 mg orally on dialysis days PRN; ondansetron 4 mg tablet,disintegrating 4 mg PO Q8H PRN ammonium lactate 12 % cream 1 applic topical BID mometasone 0.1 % cream topical insulin glargine [Lantus Solostar U-100 Insulin] 100 unit/mL (3 mL) insulin pen 10 unit SUBCUT QPM multivitamin Tablet 1 tab PO QAM bisacodyl 5 mg tablet,delayed release (DR/EC) 10 mg PO ONCE PRN tramadol 50 mg tablet 50 mg PO Q8H PRN (Reason: pain) atorvastatin 40 MG tablet 40 mg PO QHS aspirin 81 MG tablet,chewable 81 mg PO QHS insulin lispro [Humalog KwikPen Insulin] 100 unit/mL insulin pen 8 unit subcut TIDCM Rx Instructions: with meals sertraline 50 mg tablet 50 mg PO QHS calcium acetate(phosphat bind) 667 mg capsule 667 mg PO DAILY meclizine 25 mg tablet 12.5 mg PO BID PRN (Reason: dizziness) Qty: 10 0RF pregabalin 75 mg Capsule 75 mg PO DAILY 3 Days Qty: 10 0RF polyethylene glycol 3350 [ClearLax] 17 gram/dose powder 17 g PO DAILY PRN Santyl 250 unit/gram ointment topical DAILY clopidogrel [Plavix] 75 mg tablet 75 mg PO DAILY Qty: 90 0RF Discontinued cephalexin 500 mg capsule 500 mg PO Q6 Qty: 20 0RF Primary Care Provider: Dennys Serrano Referrals: Susy Berry MD [Med Staff - Active Staff] - 1 Week if not improving (with regards to blood in urine) Dennys Srerano MD [Primary Care Provider] - 3-5 Days if not improving Print Language: Irish Disposition Disposition: Home, Self Care
[2024-07-31 15:31] LABS: Absolute Lymphocyte Count 1.34 X10^3/uL (0.83-4.51); Absolute Neutrophil Count 1.7 X10^3/uL (2.0-7.7); Basophil# 0.04 X10^3/uL; Basophil% 1.1 % (0-1); Eosinophil# 0.15 X10^3/uL; Eosinophils% 4.2 % (0-5); Hematocrit 36.5 % (37-47); Hemoglobin 11.4 g/dL (12.0-15.0); Lymphocyte # 1.34 X10^3/ul (0.83-4.51); Lymphocyte % 37.9 % (19-41); Mean Corp Hgb Conc 31.2 g/dL (32-36); Mean Corpuscular Hgb 29.4 pg (27.0-32.0); Mean Corpuscular Volume 94.1 fL (81-99); Monocyte# 0.27 X10^3/uL; Monocyte% 7.6 % (0-10); NRBC Flagged by Analyzer 0 % (0-5); Neutrophil # 1.73 X10^3/uL (2.7-7.7); Neutrophil % 48.9 % (47-70); Platelet Count 218 K/mm3 (150-450); RBC Distribution Width CV 15.2 % (11.6-14.6); Red Blood Count 3.88 M/mm3 (4.2-5.4); White Blood Count 3.5 K/mm3 (4.4-11.0)
[2024-07-31 15:39] LABS: ALB/GLOB Ratio 1.4 RATIO (0.9-2.4); AST(SGOT) 28 U/L (<=31); Alanine Aminotransfer ALT/SGPT 14 U/L (<=34); Alkaline Phosphatase 196 U/L (35-104); Anion Gap 14 (5-15); BUN 27 mg/dL (4-19); Calcium,Total 9.4 mg/dL (7.6-11.0); Carbon Dioxide 27.8 mmol/L (21.0-32.0); Chloride 94 mmol/L (98-108); Creatinine, Serum 4.47 mg/dL (0.70-1.20); EST Glomerular Filtration Rate 11 (>60); Estimated Creatinine Clearance 13.27 ml/min (50-250); Globulin 2.9 g/dL (2.2-4.2); Glucose 242 mg/dL (70-99); Potassium 4.2 mmol/L (3.3-5.1); Protein, Total 6.9 g/dL (5.9-8.4); Sodium Level 136 mmol/L (133-145); Total Bilirubin 0.21 mg/dL (0.00-1.30)
[2024-07-31 15:47] LABS: Lactic Acid 1.9 mmol/L (0.0-2.0)
[2024-07-31 16:18] LABS: Color, Urine Red (Yellow); Glucose, Dipstick Normal (Normal); Ketone-Dipstick Negative (Negative); Leukocyte Esterase-Dipstick 500 /ul (Negative); Nitrite-Dipstick Negative (Negative); Occult Blood-Urine 250 /ul (Negative); Protein-Dipstick 500 mg/dl (Negative); Urine Bilirubin Dipstick Negative (Negative); Urine Clarity Turbid (Clear); Urine Urobilinogen Normal (Normal)
[2024-07-31 17:04] LABS: Partial Thromboplast Time 28.1 Seconds (24.1-36.2); Prothrombin Time (Protime)PT. 12.9 SECONDS (11.7-14.9)
[2024-07-31] MEDS: Ceftriaxone 1 GM/50 ML BAG IV (17:29)
[2024-07-31 17:34] LABS: Red Blood Cells-Urine > 100 SEEN /hpf (0-5)
[2024-07-31 17:35] LABS: White Blood Cells >100 SEEN /hpf (0-5)
[2024-07-31 17:36] LABS: Squamous Epithelial Cells - UA 0-5 SEEN /hpf (5-10)
[2024-07-31 17:38] LABS: Amorphous Sediment 3+
== END 2024-07-31 21:02 | disposition home or self-care (01) ==
PROVIDERS: Emergency Provider Emergency Medicine; PCP Family Medicine; Visit Provider Emergency Medicine
DX: R31.9 Hematuria, unspecified (principal); I13.2 Hypertensive heart and chronic kidney disease with heart failure and with stage 5 chronic kidney disease, or end stage renal disease; N18.5 Chronic kidney disease, stage 5; I50.9 Heart failure, unspecified; E13.22 Other specified diabetes mellitus with diabetic chronic kidney disease; E13.43 Other specified diabetes mellitus with diabetic autonomic (poly)neuropathy; E78.00 Pure hypercholesterolemia, unspecified; K31.84 Gastroparesis; K21.9 Gastro-esophageal reflux disease without esophagitis; Z16.39 Resistance to other specified antimicrobial drug; Z99.2 Dependence on renal dialysis; I95.9 Hypotension, unspecified; N39.0 Urinary tract infection, site not specified
CPT/HCPCS: 80053; 81001; 83605; 85025; 85610; 85730; 87040; 87077; 87086; 87088; 87186; 93005; 96365; 99285; A4216

== ENCOUNTER 2024-08-26 09:15 | Outpatient (RCR) | payer MEDICARE, MEDICAID, SELFPAY ==
[2024-07-30 00:37] VITALS: BP 168/87; PULSE 89; RESP 18; TEMP 36.4
[2024-08-12 09:03] VITALS: BP 148/70; PULSE 84; RESP 16; TEMP 36.2
--- NOTE | 2024-08-12 09:55 | PN.PCM_ITS ---
History of Present Illness Date of Service: 08/12/24 Chief Complaint: Left heel ulceration History of Wound: A 63-year-old female who presents to the wound care center today for left heel ulceration and bilateral lower extremity edema with multiple leg wounds secondary to previous blisters. In October 2019, patient had rubbing in shoes while shopping which led to a blister that developed into an ulceration. Patient was then seen by Prieto [email or web address]. for wound care. Patient then became infected and was admitted to the hospital. Patient was noted to have OM on MRI. Patient wanted to avoid surgery so a fpc course of appropriate IV antibiotics was the treatment chosen. Patient was also noted to have hyperglycemia and has worked with hospitalist and PCP to try to get better control. Blood sugar levels remain elevated. Patient also had LEAS obtained in the hospital which suggested patient had the proper blood flow to allow healing. Patient has since finished fpc course of antibiotics. Patient has since been seen on a weekly basis in office with progression and regression of wound noted over the weeks. Patient has tried various dressing options including wet to dry and santyl. The most progress was noted with Santyl but patient ran out and was unable to refill due to insurance issues. During which time the wound regressed. She also has an offloading surgical shoe and offloading boot to relieve pressure. Patient care is henceforth being carried out at the wound care center. Patient not currently on any antibiotics. Patient has since began skin graft aplications significant improvement is been noted to her foot overall. Patient has finished epifix graft applications with some very small remaining wound noted to left heel. Patient has new wounds noted to bilateral third digits. The right 3rd digit wound has healed. Her left ankle ulcer remains healed Patient relates that ambulation is getting easier and she is rebuilding her strength slowly. She has not had any worsening of minor remaining heel wound since beginning ambulation again. 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 Her has been helping her change the dressings daily to the left heel. She had been following in the wound care center in 2021 for left heel ulceration but was subsequently lost to follow-up. She cites transportation issues. She presents to the wound care center today for continued care of her left heel ulceration and bilateral lower extremity wounds secondary to edema. Progress of Wound: Stable full-thickness wound left heel Subjective Subjective Ms. Winkler is a 63-year-old female presented wound care center today follow-up evaluation of bilateral foot ulcerations. The lateral foot on the right side is now healed. She has left her amnion skin graft substitute and dressing clean dry and intact to left heel. She is doing well. She is getting offload and watch her weightbearing. She is denying any pain at this time. Denies trauma. Denies constitutional symptoms. No other pedal complaints at this time. Objective Data Objective Data Vital Signs: Vital Signs Temp Pulse Resp BP O2 Del Method 97.2 F L 84 16 148/70 H Room Air 08/12/24 09:03 08/12/24 09:03 08/12/24 09:03 08/12/24 09:03 08/12/24 09:03 Oxygen Delivery Method Room Air Physical Exam Narrative Vascular: DP and PT pulse are palpable to the bilateral lower extremity. CFT is brisk. Nonpitting edema appreciated bilateral lower extremity. Skin temperature great is warm to warm from proximal ankles to distal digits bilateral. Light touch intact. Patient does respond to painful stimuli. Dermatological: Full-thickness wound to the left heel measures 2.0 x 2.8 x 0.1 cm. Wound base is granular with no sign of infection. The right foot lateral ulceration is now healed with sanguinous crust. No sign of infection. Excisional debridement down to including subcutaneous tissue with a number 5 mm dermal curette to the left heel done without incident. Predebridement measurement was 1.8 x 2.5 x 0.1 cm. Postdebridement measurement is 2.0 x 2.8 x 0.1 cm. Epifix Mesh 4.0 x 4.5 mm was applied to the left heel full-thickness ulceration with 100% use. Fourth application. The graft site was free and clear of any infection. The wound/skin graft substitute was dressed with nonadherent bandage secured in place with Steri-Strips followed by bolster dressing as well as a double layer Tubigrip. Musculoskeletal: No pain to palpation to the full-thickness wound to left heel. No pain with calf pressure. Debridement Note Debridement Note Debridement Free Text: Excisional debridement down to including subcutaneous tissue with a number 5 mm dermal curette to the left heel done without incident. Predebridement measurement was 1.8 x 2.5 x 0.1 cm. Postdebridement measurement is 2.0 x 2.8 x 0.1 cm. Epifix Mesh 4.0 x 4.5 mm was applied to the left heel full-thickness ulceration with 100% use. Fourth application. The graft site was free and clear of any infection. The wound/skin graft substitute was dressed with nonadherent bandage secured in place with Steri-Strips followed by bolster dressing as well as a double layer Tubigrip. 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 Any new allergies or adverse reactions No Had a fall/change in ADL's that may No increase risk of falls Signs or symptoms of abuse and/or No neglect since last visit Have you been in the hospital since your No last visit? Has dressing in place as prescribed Yes Has compression in place as prescribed Yes Has offloadiing in place as prescribed N/A Experienced any changes in pain level or No management Left Footwear No Footwear Right Footwear No Footwear Pain Scale: 0-10 Numeric Is Patient Pain Free? Yes - Nurse 1 - General Ulcer Measurement Start: 08/12/24 09:03 Freq: Status: Active Protocol: Activity Type Activity Date Activity User E-sign Co-sign Detail Recorded Client Recorded Date Recorded By Document 08/12/24 09:03 MANISHA [id number] 08/12/24 09:18 KW 08/12/24 09:03 Wound Center Nurse 1 #26 Left Hallux -Current Size (cm) - Length 0.1 -Current Size (cm) - Width 0.1 -Current Size (cm) - Depth 0.1 -Total Square Cm 0.01 -Photo Taken No -Epithelialization Small 1-33% -Tunneling No -Undermining/Tunneling No -Circular Undermining No -Exudate Amt None Present -Wound Margin Distinct, Outline Attached -Temperature (Bren-wound Skin No Abnormality Appearance) (Pt Warm) -Tenderness on Palpation (Bren-wound No Skin Appearance) -Ulcer Cleansing Soap and Water -Foul Odor after Cleansing No -Anesthetic Used 5% Lidocaine Gel -Wound Comment(s) scabbed #25 right lateral foot -Current Size (cm) - Length 0.1 -Current Size (cm) - Width 0.1 -Current Size (cm) - Depth 0.1 -Total Square Cm 0.01 -Photo Taken No -Epithelialization Small 1-33% -Tunneling No -Undermining/Tunneling No -Circular Undermining No -Exudate Amt None Present -Wound Margin Distinct, Outline Attached -Ulcer Cleansing Soap and Water -Foul Odor after Cleansing No -Anesthetic Used 5% Lidocaine Gel -Wound Comment(s) scabbed 24 lt heel -Current Size (cm) - Length 2.5 -Current Size (cm) - Width 2.5 -Current Size (cm) - Depth 0.1 -Total Square Cm 6.25 -Photo Taken No -Epithelialization Small 1-33% -Tunneling No -Undermining/Tunneling No -Circular Undermining No -Change in Wound Grade/Stage No -Exudate Amt Medium -Exudate Type Yellow/Green -Wound Margin Distinct, Outline Attached -Granulation Amt Medium (34-66%) -Granulation Quality Red -Slough/Fibrin Yes -Necrosis Amt Small (1-33%) -Texture (Bren-wound Skin Appearance) Assessed,Callus -Moisture (Bren-wound Skin Appearance) Assessed, Maceration -Color (Bren-wound Skin Appearance) Assessed -Temperature (Bren-wound Skin No Abnormality Appearance) (Pt Warm) -Tenderness on Palpation (Bren-wound No Skin Appearance) -Ulcer Cleansing Soap and Water -Foul Odor after Cleansing No -Anesthetic Used 5% Lidocaine Gel Right Calf (cm) 34.5 Right Ankle (cm) 24.5 Left Calf (cm) 34.7 Left Ankle (cm) 24.5 WC - Nurse 2 - General Ulcer CM Notes Start: 08/12/24 09:03 Freq: Status: Active Protocol: Activity Type Activity Date Activity User E-sign Co-sign Detail Recorded Client Recorded Date Recorded By Document 08/12/24 09:38 JAUN [id number] 08/12/24 09:45 JAUN 08/12/24 09:38 Wound Center Nurse 2 #26 Left Hallux -Correct Patient Yes -Correct Side, Site, Position No -Correct Procedure No -Procedure Performed No #25 right lateral foot -Correct Patient Yes -Correct Side, Site, Position No -Correct Procedure No -Type of Procedure Debridement -Post Debridement (cm) - Length 0 -Post Debridement (cm) - Width 0 -Post Debridement (cm) - Depth 0 -Total Square (Post) (cm) 0 -Area of Debridement (cm) - Length 0 -Area of Debridement (cm) - Width 0 -Total Square (Area) (cm) 0 -Wound/Ulcer Outcome Not Healed 24 lt heel -Time 09:40 -Correct Patient Yes -Correct Side, Site, Position Yes -Correct Procedure Yes -Procedure Performed Yes -Type of Procedure Debridement -Clinical Debridement Subcutaneous -Tissue Removed Subcutaneous -Post Debridement (cm) - Length 2.0 -Post Debridement (cm) - Width 2.8 -Post Debridement (cm) - Depth 0.1 -Total Square (Post) (cm) 5.60 -Area of Debridement (cm) - Length 2.0 -Area of Debridement (cm) - Width 2.8 -Total Square (Area) (cm) 5.60 -Tunneling No -Undermining/Tunneling No -Circular Undermining No -Wound/Ulcer Outcome Not Healed -Ulcer Cleansing Rinsed/ Irrigated with Saline -Foul Odor after Cleansing No -Bioengineered Tissue Yes -Type of Bioengineered Tissue Epifix Mesh -Expiration Date 12/30/28 -Product Lot Number [id number] -Percent Used 100 -Lot number of Saline Used [id number] -Bleeding Controlled with Pressure -Treatment Response Procedure Tolerated Well -Offloading No -Debridement - Subq, 1st 20sq cm No -Apply Skin Sub - 1st 25 sq cm - Feet 1 -Epifix Mesh Application 1-4 (per sq 11 cm) Pain Scale: 0-10 Numeric Is Patient Pain Free? Yes Assessment/Plan Assessment/Plan (1) Non-pressure chronic ulcer of left heel and midfoot with fat layer exposed: CODE(S): L97.422 - Non-pressure chronic ulcer of left heel and midfoot with fat layer exposed PLAN: Patient was examined and evaluated. All findings were discussed with the patient. All questions were answered to the patient's satisfaction. Excisional debridement down to including subcutaneous tissue with a number 5 mm dermal curette to the left heel done without incident. Predebridement measurement was 1.8 x 2.5 x 0.1 cm. Postdebridement measurement is 2.0 x 2.8 x 0.1 cm. Epifix Mesh 4.0 x 4.5 mm was applied to the left heel full-thickness ulceration with 100% use. Fourth application. The graft site was free and clear of any infection. The wound/skin graft substitute was dressed with nonadherent bandage secured in place with Steri-Strips followed by bolster dressing as well as a double layer Tubigrip. Follow-up at the wound care center with Dr. Solano in 1 week. (2) Non-pressure chronic ulcer of other part of right foot with fat layer exposed: CODE(S): L97.512 - Non-pressure chronic ulcer of other part of right foot with fat layer exposed
[2024-08-19 09:11] VITALS: BP 92/57; PULSE 91; RESP 16; TEMP 35.8
--- NOTE | 2024-08-19 10:56 | PN.PCM_ITS ---
History of Present Illness Date of Service: 08/19/24 Chief Complaint: Left heel ulceration History of Wound: A 63-year-old female who presents to the wound care center today for left heel ulceration and bilateral lower extremity edema with multiple leg wounds secondary to previous blisters. In October 2019, patient had rubbing in shoes while shopping which led to a blister that developed into an ulceration. Patient was then seen by Prieto [email or web address]. for wound care. Patient then became infected and was admitted to the hospital. Patient was noted to have OM on MRI. Patient wanted to avoid surgery so a detention course of appropriate IV antibiotics was the treatment chosen. Patient was also noted to have hyperglycemia and has worked with hospitalist and PCP to try to get better control. Blood sugar levels remain elevated. Patient also had LEAS obtained in the hospital which suggested patient had the proper blood flow to allow healing. Patient has since finished detention course of antibiotics. Patient has since been seen on a weekly basis in office with progression and regression of wound noted over the weeks. Patient has tried various dressing options including wet to dry and santyl. The most progress was noted with Santyl but patient ran out and was unable to refill due to insurance issues. During which time the wound regressed. She also has an offloading surgical shoe and offloading boot to relieve pressure. Patient care is henceforth being carried out at the wound care center. Patient not currently on any antibiotics. Patient has since began skin graft aplications significant improvement is been noted to her foot overall. Patient has finished epifix graft applications with some very small remaining wound noted to left heel. Patient has new wounds noted to bilateral third digits. The right 3rd digit wound has healed. Her left ankle ulcer remains healed Patient relates that ambulation is getting easier and she is rebuilding her strength slowly. She has not had any worsening of minor remaining heel wound since beginning ambulation again. 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 Her has been helping her change the dressings daily to the left heel. She had been following in the wound care center in 2021 for left heel ulceration but was subsequently lost to follow-up. She cites transportation issues. She presents to the wound care center today for continued care of her left heel ulceration and bilateral lower extremity wounds secondary to edema. Progress of Wound: Stable full-thickness wound left heel Subjective Subjective Ms. Winkler is a 63-year-old diabetic female presented wound care center today follow-up evaluation of left heel wound. Patient has been compliant with her dressing left clean dry and intact. She is getting dialysis as scheduled. Her blood sugar has been up and down but not over 200 mg/dL during our conversation today. She denies any trauma. Denies constitutional symptoms. No other pedal complaints at this time. Objective Data Objective Data Vital Signs: Vital Signs Temp Pulse Resp BP O2 Del Method 96.4 F L 91 16 92/57 L Room Air 08/19/24 09:11 08/19/24 09:11 08/19/24 09:11 08/19/24 09:11 08/19/24 09:11 Oxygen Delivery Method Room Air Physical Exam Narrative Vascular: DP and PT pulse are palpable to the bilateral lower extremity. CFT is brisk. Nonpitting edema appreciated bilateral lower extremity. Skin temperature great is warm to warm from proximal ankles to distal digits bilateral. Light touch intact. Patient does respond to painful stimuli. Dermatological: Full-thickness wound to the left heel measures 2.0 x 2.4 x 0.1 cm. Wound base is granular with no sign of infection. The right foot lateral ulceration is now healed with sanguinous crust, and improving. No sign of infection. Excisional debridement down to including subcutaneous tissue with a number 5 mm dermal curette to the left heel done without incident. Predebridement measurement was 1.9 x 2.2 x 0.1 cm. Postdebridement measurement is 2.0 x 2.4 x 0.1 cm. Epifix Mesh 4.0 x 4.5 mm was applied to the left heel full-thickness ulceration with 100% use. Fifth application. The graft site was free and clear of any infection. The wound/skin graft substitute was dressed with nonadherent bandage secured in place with Steri-Strips followed by bolster dressing as well as a double layer Tubigrip. Musculoskeletal: No pain to palpation to the full-thickness wound to left heel. No pain with calf pressure. Debridement Note Debridement Note Debridement Free Text: Excisional debridement down to including subcutaneous tissue with a number 5 mm dermal curette to the left heel done without incident. Predebridement measurement was 1.9 x 2.2 x 0.1 cm. Postdebridement measurement is 2.0 x 2.4 x 0.1 cm. Epifix Mesh 4.0 x 4.5 mm was applied to the left heel full-thickness ulceration with 100% use. Fifth application. The graft site was free and clear of any infection. The wound/skin graft substitute was dressed with nonadherent bandage secured in place with Steri-Strips followed by bolster dressing as well as a double layer Tubigrip. Post-Debridement Measurements and Additional Note: Post-Debridement Measurements/Treatment - Nurse 1 - General Ulcer Assessment Start: 08/12/24 09:03 Freq: Status: Active Protocol: MOOK Activity Type Activity Date Activity User E-sign Co-sign Detail Recorded Client Recorded Date Recorded By Document 08/12/24 09:03 [id number] 08/12/24 09:18 KW Document 08/19/24 09:11 [id number] 08/19/24 09:27 08/12/24 08/19/24 09:03 09:11 - Today's Visit Information Type of service Follow-up Visit Follow-up Visit (Physician/OXYACETYLENE CUTTER (Physician/OXYACETYLENE CUTTER ) ) Arrival Mode Wheelchair Wheelchair Transfer Assistance Manual Patient Identification Verified (Name & Yes Yes ) Vital Signs Temperature (97.8 F-99.1 F) 97.2 F L 96.4 F L Temperature Source Temporal Temporal Pulse Rate (60-100) 84 91 Pulse Location Monitor Monitor Respiratory Rate (12-18) 16 16 Respiratory rate source Observation Observation Oxygen Delivery Method Room Air Room Air Blood Pressure (90/60-120/80) 148/70 H 92/57 L Blood Pressure Mean (mm Hg) 96 68 Source Monitor Monitor Position Sitting Sitting Blood Pressure Location Right Forearm Right Arm History Since Last Visit- (Skip if this is Patient's initial visit) Have you changed medications since your No No last visit? Any new allergies or adverse reactions No No Had a fall/change in ADL's that may No No increase risk of falls Signs or symptoms of abuse and/or No No neglect since last visit Have you been in the hospital since your No No last visit? Has dressing in place as prescribed Yes Yes Has compression in place as prescribed Yes Yes Has offloadiing in place as prescribed N/A Yes Experienced any changes in pain level or No No management Left Footwear No Footwear No Footwear Right Footwear No Footwear No Footwear Pain Scale: 0-10 Numeric Is Patient Pain Free? Yes Yes WC - Nurse 1 - General Ulcer Measurement Start: 08/12/24 09:03 Freq: Status: Active Protocol: Activity Type Activity Date Activity User E-sign Co-sign Detail Recorded Client Recorded Date Recorded By Document 08/12/24 09:03 KW [id number] 08/12/24 09:18 KW Document 08/19/24 09:11 [id number] 08/19/24 09:27 08/12/24 08/19/24 09:03 09:11 Wound Center Nurse 1 #26 Left Hallux -Current Size (cm) - Length 0.1 0.3 -Current Size (cm) - Width 0.1 0.9 -Current Size (cm) - Depth 0.1 0.1 -Total Square Cm 0.01 0.27 -Photo Taken No No -Epithelialization Small 1-33% Small 1-33% -Tunneling No No -Undermining/Tunneling No No -Circular Undermining No No -Exudate Amt None Present None Present -Wound Margin Distinct, Distinct, Outline Outline Attached Attached -Granulation Amt Medium (34-66%) -Granulation Quality Red -Texture (Bren-wound Skin Appearance) Assessed -Moisture (Bren-wound Skin Appearance) Assessed -Color (Bren-wound Skin Appearance) Assessed -Temperature (Bren-wound Skin No Abnormality No Abnormality Appearance) (Pt Warm) (Pt Warm) -Tenderness on Palpation (Bren-wound No No Skin Appearance) -Ulcer Cleansing Soap and Water Soap and Water -Foul Odor after Cleansing No No -Anesthetic Used 5% Lidocaine 5% Lidocaine Gel Gel -Wound Comment(s) scabbed #25 right lateral foot -Current Size (cm) - Length 0.1 0.2 -Current Size (cm) - Width 0.1 1.0 -Current Size (cm) - Depth 0.1 0.1 -Total Square Cm 0.01 0.20 -Photo Taken No No -Epithelialization Small 1-33% Small 1-33% -Tunneling No No -Undermining/Tunneling No No -Circular Undermining No No -Exudate Amt None Present Small -Exudate Type Yellow/Green -Wound Margin Distinct, Distinct, Outline Outline Attached Attached -Granulation Amt Medium (34-66%) -Granulation Quality Wilson -Slough/Fibrin Yes -Necrosis Amt Small (1-33%) -Necrotic Tissue Type Adherent Slough -Texture (Bren-wound Skin Appearance) Assessed -Moisture (Bren-wound Skin Appearance) Assessed -Color (Bren-wound Skin Appearance) Assessed -Temperature (Bren-wound Skin No Abnormality Appearance) (Pt Warm) -Ulcer Cleansing Soap and Water Soap and Water -Foul Odor after Cleansing No No -Anesthetic Used 5% Lidocaine 5% Lidocaine Gel Gel -Wound Comment(s) scabbed 24 lt heel -Current Size (cm) - Length 2.5 2.0 -Current Size (cm) - Width 2.5 2.2 -Current Size (cm) - Depth 0.1 0.1 -Total Square Cm 6.25 4.40 -Photo Taken No No -Epithelialization Small 1-33% Small 1-33% -Tunneling No No -Undermining/Tunneling No No -Circular Undermining No No -Change in Wound Grade/Stage No -Exudate Amt Medium None Present -Exudate Type Yellow/Green Yellow/Green -Wound Margin Distinct, Distinct, Outline Outline Attached Attached -Granulation Amt Medium (34-66%) Small (1-33%) -Granulation Quality Red Wilson -Slough/Fibrin Yes -Necrosis Amt Small (1-33%) Medium (34-66%) -Texture (Bren-wound Skin Appearance) Assessed,Callus Assessed -Moisture (Bren-wound Skin Appearance) Assessed, Maceration -Color (Bren-wound Skin Appearance) Assessed Assessed -Temperature (Bren-wound Skin No Abnormality No Abnormality Appearance) (Pt Warm) (Pt Warm) -Tenderness on Palpation (Bren-wound No Skin Appearance) -Ulcer Cleansing Soap and Water Soap and Water -Foul Odor after Cleansing No No -Anesthetic Used 5% Lidocaine 5% Lidocaine Gel Gel Lower Limb Edema Present Yes Right Calf (cm) 34.5 34.5 Right Ankle (cm) 24.5 22.5 Left Calf (cm) 34.7 34.5 Left Ankle (cm) 24.5 24 WC - Nurse 2 - General Ulcer CM Notes Start: 08/12/24 09:03 Freq: Status: Active Protocol: Activity Type Activity Date Activity User E-sign Co-sign Detail Recorded Client Recorded Date Recorded By Document 08/12/24 09:38 JF [id number] 08/12/24 09:45 JF Document 08/19/24 09:39 JF [id number] 08/19/24 09:47 JF 08/12/24 08/19/24 09:38 09:39 Wound Center Nurse 2 #26 Left Hallux -Correct Patient Yes Yes -Correct Side, Site, Position No No -Correct Procedure No No -Procedure Performed No No -Post Debridement (cm) - Length 0 -Post Debridement (cm) - Width 0 -Post Debridement (cm) - Depth 0 -Total Square (Post) (cm) 0 -Area of Debridement (cm) - Length 0 -Area of Debridement (cm) - Width 0 -Total Square (Area) (cm) 0 -Wound/Ulcer Outcome Healed- Epithelialized #25 right lateral foot -Correct Patient Yes Yes -Correct Side, Site, Position No No -Correct Procedure No No -Procedure Performed No -Type of Procedure Debridement -Post Debridement (cm) - Length 0 0 -Post Debridement (cm) - Width 0 0 -Post Debridement (cm) - Depth 0 0 -Total Square (Post) (cm) 0 0 -Area of Debridement (cm) - Length 0 0 -Area of Debridement (cm) - Width 0 0 -Total Square (Area) (cm) 0 0 -Wound/Ulcer Outcome Not Healed Healed- Epithelialized 24 lt heel -Time 09:40 09:41 -Correct Patient Yes Yes -Correct Side, Site, Position Yes Yes -Correct Procedure Yes Yes -Procedure Performed Yes Yes -Type of Procedure Debridement Debridement -Clinical Debridement Subcutaneous Subcutaneous -Tissue Removed Subcutaneous Subcutaneous -Post Debridement (cm) - Length 2.0 2.0 -Post Debridement (cm) - Width 2.8 2.4 -Post Debridement (cm) - Depth 0.1 0.1 -Total Square (Post) (cm) 5.60 4.80 -Area of Debridement (cm) - Length 2.0 2.0 -Area of Debridement (cm) - Width 2.8 2.4 -Total Square (Area) (cm) 5.60 4.80 -Tunneling No No -Undermining/Tunneling No No -Circular Undermining No No -Wound/Ulcer Outcome Not Healed Not Healed -Ulcer Cleansing Rinsed/ Rinsed/ Irrigated with Irrigated with Saline Saline -Foul Odor after Cleansing No No -Bioengineered Tissue Yes Yes -Type of Bioengineered Tissue Epifix Mesh Epifix Mesh -Expiration Date 12/30/28 12/30/28 -Product Lot Number [id number] -Percent Used 100 100 -Lot number of Saline Used [id number] -Bleeding Controlled with Pressure Pressure -Treatment Response Procedure Procedure Tolerated Well Tolerated Well -Offloading No Yes -Type of Offloading Surgical Shoe -Debridement - Subq, 1st 20sq cm No No -Apply Skin Sub - 1st 25 sq cm - Feet 1 1 -Epifix Mesh Application 1-4 (per sq 11 11 cm) Pain Scale: 0-10 Numeric Is Patient Pain Free? Yes Yes - Nurse 3 - General Ulcer D/C NN Start: 08/12/24 09:03 Freq: Status: Active Protocol: Activity Type Activity Date Activity User E-sign Co-sign Detail Recorded Client Recorded Date Recorded By Document 08/12/24 10:01 ID [id number] 08/12/24 10:03 ID Document 08/19/24 09:58 [id number] 08/19/24 10:01 08/12/24 08/19/24 10:01 09:58 Wound Care Center Nurse 3 #26 Left Hallux -Ulcer Cleansing Not Cleansed -Foul Odor after Cleansing No #25 right lateral foot -Ulcer Cleansing Not Cleansed -Foul Odor after Cleansing No -Primary Dressing Covered/Secured with Other -Other Covering Betadine and bandaid 24 lt heel -Ulcer Cleansing Not Cleansed -Foul Odor after Cleansing No -Primary Dressing Applied Silicone Border Foam 4x4 -Primary Dressing Covered/Secured with Dry Gauze & Roll Gauze, Secured with Tape,Other -Other Covering abd pad in nurse hat form -Silicone Border Foam 4x4 1 RLE -Lotion applied to leg before No compression wrap -Tubular Bandage Double Layer Double Layer -Size of Tubigrip Used Size F Size F -Size F ($) 2 2 LLE -Lotion applied to leg before No compression wrap -Tubular Bandage Double Layer Double Layer -Size of Tubigrip Used Size F Size F -Size F ($) 2 2 Pain Scale: 0-10 Numeric Is Patient Pain Free? Yes Yes - Visit Discharge Discharge Condition Stable Stable Ambulatory Status Wheelchair Wheelchair Transportation Private Auto Clinical Summary of Care Provided Yes Yes Facility Type Home Health Orders Sent Yes Assessment/Plan Assessment/Plan (1) Non-pressure chronic ulcer of left heel and midfoot with fat layer exposed: CODE(S): L97.422 - Non-pressure chronic ulcer of left heel and midfoot with fat layer exposed PLAN: Patient was examined and evaluated. All findings were discussed with the patient. All questions were answered to the patient's satisfaction. Excisional debridement down to including subcutaneous tissue with a number 5 mm dermal curette to the left heel done without incident. Predebridement measurement was 1.9 x 2.2 x 0.1 cm. Postdebridement measurement is 2.0 x 2.4 x 0.1 cm. Epifix Mesh 4.0 x 4.5 mm was applied to the left heel full-thickness ulceration with 100% use. Fifth application. The graft site was free and clear of any infection. The wound/skin graft substitute was dressed with nonadherent bandage secured in place with Steri-Strips followed by bolster dressing as well as a double layer Tubigrip. Follow-up at the wound care center with Dr. Solano in 1 week.
[2024-08-26 09:21] VITALS: BP 115/71; PULSE 87; RESP 16; TEMP 37.1
--- NOTE | 2024-08-26 19:28 | PN.PCM_ITS ---
History of Present Illness Date of Service: 08/26/24 Chief Complaint: Left heel ulceration History of Wound: A 63-year-old female who presents to the wound care center today for left heel ulceration and bilateral lower extremity edema with multiple leg wounds secondary to previous blisters. In October 2019, patient had rubbing in shoes while shopping which led to a blister that developed into an ulceration. Patient was then seen by Prieto [email or web address].Usha. for wound care. Patient then became infected and was admitted to the hospital. Patient was noted to have OM on MRI. Patient wanted to avoid surgery so a usp course of appropriate IV antibiotics was the treatment chosen. Patient was also noted to have hyperglycemia and has worked with hospitalist and PCP to try to get better control. Blood sugar levels remain elevated. Patient also had LEAS obtained in the hospital which suggested patient had the proper blood flow to allow healing. Patient has since finished usp course of antibiotics. Patient has since been seen on a weekly basis in office with progression and regression of wound noted over the weeks. Patient has tried various dressing options including wet to dry and santyl. The most progress was noted with Santyl but patient ran out and was unable to refill due to insurance issues. During which time the wound regressed. She also has an offloading surgical shoe and offloading boot to relieve pressure. Patient care is henceforth being carried out at the wound care center. Patient not currently on any antibiotics. Patient has since began skin graft aplications significant improvement is been noted to her foot overall. Patient has finished epifix graft applications with some very small remaining wound noted to left heel. Patient has new wounds noted to bilateral third digits. The right 3rd digit wound has healed. Her left ankle ulcer remains healed Patient relates that ambulation is getting easier and she is rebuilding her strength slowly. She has not had any worsening of minor remaining heel wound since beginning ambulation again. 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 Her has been helping her change the dressings daily to the left heel. She had been following in the wound care center in 2021 for left heel ulceration but was subsequently lost to follow-up. She cites transportation issues. She presents to the wound care center today for continued care of her left heel ulceration and bilateral lower extremity wounds secondary to edema. Progress of Wound: Stable full-thickness wound left heel Subjective Subjective Ms. Winkler is a 63-year-old diabetic female presented wound care center today follow-up evaluation of left heel wound. Patient has been compliant with her dressing left clean dry and intact. She is getting dialysis as scheduled. She admits that her blood sugar has improved stable at this time. She denies any trauma. Denies constitutional symptoms. No other pedal complaints at this time. Objective Data Objective Data Vital Signs: Vital Signs Temp Pulse Resp BP O2 Del Method 98.8 F 87 16 115/71 Room Air 08/26/24 09:21 08/26/24 09:21 08/26/24 09:21 08/26/24 09:21 08/26/24 09:21 Oxygen Delivery Method Room Air Physical Exam Narrative Vascular: DP and PT pulse are palpable to the bilateral lower extremity. CFT is brisk. Nonpitting edema appreciated bilateral lower extremity. Skin temperature great is warm to warm from proximal ankles to distal digits bilateral. Light touch intact. Patient does respond to painful stimuli. Dermatological: Full-thickness wound to the left heel measures 1.9 x 2.0 x 0.1 cm. Wound base is granular with no sign of infection. Excisional debridement down to including subcutaneous tissue with a number 5 mm dermal curette to the left heel done without incident. Predebridement measurement was 1.8 x 1.9 x 0.1 cm. Postdebridement measurement is 1.9 x 2.0 x 0.1 cm. Epifix 2.0 x 2.0 cm was applied to the left heel full-thickness ulceration with 100% use. Sixth application. The graft site was free and clear of any infection. The wound/skin graft substitute was dressed with nonadherent bandage secured in place with Steri-Strips followed by bolster dressing as well as a double layer Tubigrip. Musculoskeletal: No pain to palpation to the full-thickness wound to left heel. No pain with calf pressure. Debridement Note Debridement Note Debridement Free Text: Excisional debridement down to including subcutaneous tissue with a number 5 mm dermal curette to the left heel done without incident. Predebridement measurement was 1.8 x 1.9 x 0.1 cm. Postdebridement measurement is 1.9 x 2.0 x 0.1 cm. Epifix 2.0 x 2.0 cm was applied to the left heel full-thickness ulceration with 100% use. Sixth application. The graft site was free and clear of any infection. The wound/skin graft substitute was dressed with nonadherent bandage secured in place with Steri-Strips followed by bolster dressing as well as a double layer Tubigrip. Post-Debridement Measurements and Additional Note: Post-Debridement Measurements/Treatment - Nurse 1 - General Ulcer Assessment Start: 08/12/24 09:03 Freq: Status: Active Protocol: SAMARIA.LEDAT Activity Type Activity Date Activity User E-sign Co-sign Detail Recorded Client Recorded Date Recorded By Document 08/12/24 09:03 KW [id number] 08/12/24 09:18 KW Document 08/19/24 09:11 [id number] 08/19/24 09:27 GM Document 08/26/24 09:21 KW [id number] 08/26/24 09:29 KW 08/12/24 08/19/24 08/26/24 09:03 09:11 09:21 - Today's Visit Information Type of service Follow-up Visit Follow-up Visit Follow-up Visit (Physician/HOSPITAL [employer]ES [employer] 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 (Physician/HOSPITAL [employer]ES AND 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 (Physician/HOSPITAL AIDES AND 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 ) ) ) Arrival Mode Wheelchair Wheelchair Walker Transfer Assistance Manual Patient Identification Verified (Name & Yes Yes Yes ) Vital Signs Temperature (97.8 F-99.1 F) 97.2 F L 96.4 F L 98.8 F Temperature Source Temporal Temporal Temporal Pulse Rate (60-100) 84 91 87 Pulse Location Monitor Monitor Monitor Respiratory Rate (12-18) 16 16 16 Respiratory rate source Observation Observation Observation Oxygen Delivery Method Room Air Room Air Room Air Blood Pressure (90/60-120/80) 148/70 H 92/57 L 115/71 Blood Pressure Mean (mm Hg) 96 68 85 Source Monitor Monitor Monitor Position Sitting Sitting Semi-Fowlers Blood Pressure Location Right Forearm Right Arm Left Arm History Since Last Visit- (Skip if this is Patient's initial visit) Have you changed medications since your No No No last visit? Any new allergies or adverse reactions No No No Had a fall/change in ADL's that may No No No increase risk of falls Signs or symptoms of abuse and/or No No No neglect since last visit Have you been in the hospital since your No No No last visit? Has dressing in place as prescribed Yes Yes Yes Has compression in place as prescribed Yes Yes Yes Has offloadiing in place as prescribed N/A Yes N/A Experienced any changes in pain level or No No No management Left Footwear No Footwear No Footwear Slipper Right Footwear No Footwear No Footwear Slipper Pain Scale: 0-10 Numeric Is Patient Pain Free? Yes Yes Yes WC - Nurse 1 - General Ulcer Measurement Start: 08/12/24 09:03 Freq: Status: Active Protocol: Activity Type Activity Date Activity User E-sign Co-sign Detail Recorded Client Recorded Date Recorded By Document 08/12/24 09:03 KW [id number] 08/12/24 09:18 KW Document 08/19/24 09:11 [id number] 08/19/24 09:27 GM Document 08/26/24 09:21 KW [id number] 08/26/24 09:29 KW 08/12/24 08/19/24 08/26/24 09:03 09:11 09:21 Wound Center Nurse 1 #26 Left Hallux -Current Size (cm) - Length 0.1 0.3 -Current Size (cm) - Width 0.1 0.9 -Current Size (cm) - Depth 0.1 0.1 -Total Square Cm 0.01 0.27 -Photo Taken No No -Epithelialization Small 1-33% Small 1-33% -Tunneling No No -Undermining/Tunneling No No -Circular Undermining No No -Exudate Amt None Present None Present -Wound Margin Distinct, Distinct, Outline Outline Attached Attached -Granulation Amt Medium (34-66%) -Granulation Quality Red -Texture (Bren-wound Skin Appearance) Assessed -Moisture (Bren-wound Skin Appearance) Assessed -Color (Bren-wound Skin Appearance) Assessed -Temperature (Bren-wound Skin No Abnormality No Abnormality Appearance) (Pt Warm) (Pt Warm) -Tenderness on Palpation (Bren-wound No No Skin Appearance) -Ulcer Cleansing Soap and Water Soap and Water -Foul Odor after Cleansing No No -Anesthetic Used 5% Lidocaine 5% Lidocaine Gel Gel -Wound Comment(s) scabbed #25 right lateral foot -Current Size (cm) - Length 0.1 0.2 -Current Size (cm) - Width 0.1 1.0 -Current Size (cm) - Depth 0.1 0.1 -Total Square Cm 0.01 0.20 -Photo Taken No No -Epithelialization Small 1-33% Small 1-33% -Tunneling No No -Undermining/Tunneling No No -Circular Undermining No No -Exudate Amt None Present Small -Exudate Type Yellow/Green -Wound Margin Distinct, Distinct, Outline Outline Attached Attached -Granulation Amt Medium (34-66%) -Granulation Quality [place] -Slough/Fibrin Yes -Necrosis Amt Small (1-33%) -Necrotic Tissue Type Adherent Slough -Texture (Bren-wound Skin Appearance) Assessed -Moisture (Bren-wound Skin Appearance) Assessed -Color (Bren-wound Skin Appearance) Assessed -Temperature (Bren-wound Skin No Abnormality Appearance) (Pt Warm) -Ulcer Cleansing Soap and Water Soap and Water -Foul Odor after Cleansing No No -Anesthetic Used 5% Lidocaine 5% Lidocaine Gel Gel -Wound Comment(s) scabbed 24 lt heel -Current Size (cm) - Length 2.5 2.0 2 -Current Size (cm) - Width 2.5 2.2 2 -Current Size (cm) - Depth 0.1 0.1 0.1 -Total Square Cm 6.25 4.40 4 -Date of Last Picture (Recall this 08/26/24 field) -Photo Taken No No -Epithelialization Small 1-33% Small 1-33% -Tunneling No No -Undermining/Tunneling No No -Circular Undermining No No -Change in Wound Grade/Stage No -Exudate Amt Medium None Present Medium -Exudate Type Yellow/Green Yellow/Green Serosanguineous -Wound Margin Distinct, Distinct, Distinct, Outline Outline Outline Attached Attached Attached -Granulation Amt Medium (34-66%) Small (1-33%) Large (67-100%) -Granulation Quality [place],Red -Slough/Fibrin Yes -Necrosis Amt Small (1-33%) Medium (34-66%) -Texture (Bren-wound Skin Appearance) Assessed,Callus Assessed Assessed -Moisture (Bren-wound Skin Appearance) Assessed, Assessed Maceration -Color (Bren-wound Skin Appearance) Assessed Assessed Assessed -Temperature (Bren-wound Skin No Abnormality No Abnormality No Abnormality Appearance) (Pt Warm) (Pt Warm) (Pt Warm) -Tenderness on Palpation (Bren-wound No No Skin Appearance) -Ulcer Cleansing Soap and Water Soap and Water Soap and Water -Foul Odor after Cleansing No No No -Anesthetic Used 5% Lidocaine 5% Lidocaine 5% Lidocaine Gel Gel Gel Lower Limb Edema Present Yes Right Calf (cm) 34.5 34.5 Right Ankle (cm) 24.5 22.5 Left Calf (cm) 34.7 34.5 Left Ankle (cm) 24.5 24 WC - Nurse 2 - General Ulcer CM Notes Start: 08/12/24 09:03 Freq: Status: Active Protocol: Activity Type Activity Date Activity User E-sign Co-sign Detail Recorded Client Recorded Date Recorded By Document 08/12/24 09:38 [id number] 08/12/24 09:45 Document 08/19/24 09:39 [id number] 08/19/24 09:47 Document 08/26/24 09:33 [id number] 08/26/24 09:38 08/12/24 08/19/24 08/26/24 09:38 09:39 09:33 Wound Center Nurse 2 #26 Left Hallux -Correct Patient Yes Yes -Correct Side, Site, Position No No -Correct Procedure No No -Procedure Performed No No -Post Debridement (cm) - Length 0 -Post Debridement (cm) - Width 0 -Post Debridement (cm) - Depth 0 -Total Square (Post) (cm) 0 -Area of Debridement (cm) - Length 0 -Area of Debridement (cm) - Width 0 -Total Square (Area) (cm) 0 -Wound/Ulcer Outcome Healed- Epithelialized #25 right lateral foot -Correct Patient Yes Yes -Correct Side, Site, Position No No -Correct Procedure No No -Procedure Performed No -Type of Procedure Debridement -Post Debridement (cm) - Length 0 0 -Post Debridement (cm) - Width 0 0 -Post Debridement (cm) - Depth 0 0 -Total Square (Post) (cm) 0 0 -Area of Debridement (cm) - Length 0 0 -Area of Debridement (cm) - Width 0 0 -Total Square (Area) (cm) 0 0 -Wound/Ulcer Outcome Not Healed Healed- Epithelialized 24 lt heel -Time 09:40 09:41 09:33 -Correct Patient Yes Yes Yes -Correct Side, Site, Position Yes Yes Yes -Correct Procedure Yes Yes Yes -Procedure Performed Yes Yes Yes -Type of Procedure Debridement Debridement Debridement -Clinical Debridement Subcutaneous Subcutaneous Subcutaneous -Tissue Removed Subcutaneous Subcutaneous Subcutaneous -Post Debridement (cm) - Length 2.0 2.0 1.9 -Post Debridement (cm) - Width 2.8 2.4 2 -Post Debridement (cm) - Depth 0.1 0.1 0.1 -Total Square (Post) (cm) 5.60 4.80 3.8 -Area of Debridement (cm) - Length 2.0 2.0 1.9 -Area of Debridement (cm) - Width 2.8 2.4 2 -Total Square (Area) (cm) 5.60 4.80 3.8 -Tunneling No No No -Undermining/Tunneling No No No -Circular Undermining No No No -Wound/Ulcer Outcome Not Healed Not Healed Not Healed -Ulcer Cleansing Rinsed/ Rinsed/ Rinsed/ Irrigated with Irrigated with Irrigated with Saline Saline Saline -Foul Odor after Cleansing No No No -Bioengineered Tissue Yes Yes Yes -Type of Bioengineered Tissue Epifix Mesh Epifix Mesh Epifix Mesh -Expiration Date 12/30/28 12/30/28 09/29/28 -Product Lot Number [id number] -Percent Used 100 100 100 -Lot number of Saline Used [id number] -Bleeding Controlled with Pressure Pressure Pressure -Treatment Response Procedure Procedure Procedure Tolerated Well Tolerated Well Tolerated Well -Offloading No Yes Yes -Type of Offloading Surgical Shoe Surgical Shoe -Debridement - Subq, 1st 20sq cm No No No -Apply Skin Sub - 1st 25 sq cm - Feet 1 1 1 -Epifix 18mm Disc Application 1-4 4 -Epifix Mesh Application 1-4 (per sq 11 11 cm) Pain Scale: 0-10 Numeric Is Patient Pain Free? Yes Yes Yes - Nurse 3 - General Ulcer D/C NN Start: 08/12/24 09:03 Freq: Status: Active Protocol: Activity Type Activity Date Activity User E-sign Co-sign Detail Recorded Client Recorded Date Recorded By Document 08/12/24 10:01 IN [id number] 08/12/24 10:03 IN Document 08/19/24 09:58 CP [id number] 08/19/24 10:01 CP Document 08/26/24 09:42 KW [id number] 08/26/24 09:43 KW 08/12/24 08/19/24 08/26/24 10:01 09:58 09:42 Wound Care Center Nurse 3 #26 Left Hallux -Ulcer Cleansing Not Cleansed -Foul Odor after Cleansing No #25 right lateral foot -Ulcer Cleansing Not Cleansed -Foul Odor after Cleansing No -Primary Dressing Covered/Secured with Other -Other Covering Betadine and bandaid 24 lt heel -Ulcer Cleansing Not Cleansed -Foul Odor after Cleansing No -Primary Dressing Applied Silicone Border Silicone Border Foam 4x4 Foam 6x6 -Primary Dressing Covered/Secured with Dry Gauze & Roll Gauze, Secured with Tape,Other -Other Covering abd pad in nurse hat form -Silicone Border Foam 4x4 1 -Silicone Border Foam 6x6 1 RLE -Lotion applied to leg before No compression wrap -Tubular Bandage Double Layer Double Layer Double Layer -Size of Tubigrip Used Size F Size F Size F -Size F ($) 2 2 2 LLE -Lotion applied to leg before No compression wrap -Tubular Bandage Double Layer Double Layer Double Layer -Size of Tubigrip Used Size F Size F Size F -Size F ($) 2 2 2 Pain Scale: 0-10 Numeric Is Patient Pain Free? Yes Yes Yes WC - Visit Discharge Discharge Condition Stable Stable Stable Ambulatory Status Wheelchair Wheelchair Wheelchair Transportation Private Auto Private Auto Medication Reconcilliation completed & No provided to patient/care provider Clinical Summary of Care Provided Yes Yes Yes Facility Type Home Health Orders Sent Yes Assessment/Plan Assessment/Plan (1) Non-pressure chronic ulcer of left heel and midfoot with fat layer exposed: CODE(S): L97.422 - Non-pressure chronic ulcer of left heel and midfoot with fat layer exposed PLAN: Patient was examined and evaluated. All findings were discussed with the patient. All questions were answered to the patient's satisfaction. Excisional debridement down to including subcutaneous tissue with a number 5 mm dermal curette to the left heel done without incident. Predebridement measurement was 1.8 x 1.9 x 0.1 cm. Postdebridement measurement is 1.9 x 2.0 x 0.1 cm. Epifix 2.0 x 2.0 cm was applied to the left heel full-thickness ulceration with 100% use. Sixth application. The graft site was free and clear of any infection. The wound/skin graft substitute was dressed with nonadherent bandage secured in place with Steri-Strips followed by bolster dressing as well as a double layer Tubigrip. Follow-up at the wound care center with Dr. Solano in 1 week.
--- NOTE | 2024-08-27 11:44 | WC ---
PHOTO 08/26/24 LEFT HEEL
== END 2024-08-29 23:59 | disposition home or self-care (01) ==
LOC: WC 09:15
PROVIDERS: PCP Family Medicine; Referring Provider Podiatrist Foot & Ankle Surgery; Visit Provider Podiatrist Foot & Ankle Surgery
DX: L97.422 Non-pressure chronic ulcer of left heel and midfoot with fat layer exposed (principal); L97.512 Non-pressure chronic ulcer of other part of right foot with fat layer exposed; Z96.649 Presence of unspecified artificial hip joint; R73.9 Hyperglycemia, unspecified
CPT/HCPCS: 15275; Q4186

== ENCOUNTER 2024-09-23 09:30 | Outpatient (RCR) | payer MEDICARE, MEDICAID, SELFPAY ==
[2024-08-30 00:18] VITALS: BP 115/71; PULSE 87; RESP 16; TEMP 37.1
[2024-09-02 09:42] VITALS: BP 115/68; PULSE 88; RESP 16
--- NOTE | 2024-09-02 10:28 | PCM.WC.PN ---
History of Present Illness Date of Service: 09/02/24 Chief Complaint: Left heel ulceration History of Wound: A 63-year-old female who presents to the wound care center today for left heel ulceration and bilateral lower extremity edema with multiple leg wounds secondary to previous blisters. In October 2019, patient had rubbing in shoes while shopping which led to a blister that developed into an ulceration. Patient was then seen by Prieto AmezquitaP.Usha. for wound care. Patient then became infected and was admitted to the hospital. Patient was noted to have OM on MRI. Patient wanted to avoid surgery so a penitentiary course of appropriate IV antibiotics was the treatment chosen. Patient was also noted to have hyperglycemia and has worked with hospitalist and PCP to try to get better control. Blood sugar levels remain elevated. Patient also had LEAS obtained in the hospital which suggested patient had the proper blood flow to allow healing. Patient has since finished penitentiary course of antibiotics. Patient has since been seen on a weekly basis in office with progression and regression of wound noted over the weeks. Patient has tried various dressing options including wet to dry and santyl. The most progress was noted with Santyl but patient ran out and was unable to refill due to insurance issues. During which time the wound regressed. She also has an offloading surgical shoe and offloading boot to relieve pressure. Patient care is henceforth being carried out at the wound care center. Patient not currently on any antibiotics. Patient has since began skin graft aplications significant improvement is been noted to her foot overall. Patient has finished epifix graft applications with some very small remaining wound noted to left heel. Patient has new wounds noted to bilateral third digits. The right 3rd digit wound has healed. Her left ankle ulcer remains healed Patient relates that ambulation is getting easier and she is rebuilding her strength slowly. She has not had any worsening of minor remaining heel wound since beginning ambulation again. 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 Her has been helping her change the dressings daily to the left heel. She had been following in the wound care center in 2021 for left heel ulceration but was subsequently lost to follow-up. She cites transportation issues. She presents to the wound care center today for continued care of her left heel ulceration and bilateral lower extremity wounds secondary to edema. Progress of Wound: Stable full-thickness wound left heel Subjective Subjective Ms. Winkler is a 63-year-old female presenting to wound care center today for follow-up evaluation of full-thickness wound to left heel. Patient was seen by home health care over the week that had some concerns regarding the patient's heel dressing that had evidence of removal with potential dog care to the wound area. The patient states that she is doing the best she can and does have some difficulty when she is at her house when her is gone. She does admit to some swelling to the right foot and blister to the right second toe. She is elevating is much as she can and following her dialysis schedule. She denies trauma. Denies constitutional symptoms. No other pedal complaints at this time. Objective Data Objective Data Vital Signs: Vital Signs Temp Pulse Resp BP O2 Del Method 98.8 F 88 16 115/68 Room Air 08/30/24 00:18 09/02/24 09:42 09/02/24 09:42 09/02/24 09:42 09/02/24 09:42 Oxygen Delivery Method Room Air Physical Exam Narrative Vascular: DP and PT pulse are palpable to the bilateral lower extremity. CFT is brisk. Nonpitting edema appreciated bilateral lower extremity. Blanchable erythema to the lesser digits bilateral. Skin temperature great is warm to warm from proximal ankles to distal digits bilateral. Light touch intact. Patient does respond to painful stimuli. Dermatological: Full-thickness wound to the left heel measures 1.5 x 2.2 x 0.1 cm. Wound base is granular with no sign of infection. Negative probe to bone. Evidence of fluid-filled bullae to the right second digit. No sign of infection. Excisional debridement down to including subcutaneous tissue with a number 5 mm dermal curette to the left heel done without incident. Predebridement measurement was 1.4 x 2.0 x 0.1 cm. Postdebridement measurement is 1.5 x 2.2 x 0.1 cm. Epifix 2.0 x 2.0 cm was applied to the left heel full-thickness ulceration with 100% use. Seventh application. The graft site was free and clear of any infection. The wound/skin graft substitute was dressed with nonadherent bandage secured in place with Steri-Strips followed by bolster dressing as well as a double layer Tubigrip. Musculoskeletal: No pain to palpation to the full-thickness wound to left heel. No pain with calf pressure. Debridement Note Debridement Note Debridement Free Text: Excisional debridement down to including subcutaneous tissue with a number 5 mm dermal curette to the left heel done without incident. Predebridement measurement was 1.4 x 2.0 x 0.1 cm. Postdebridement measurement is 1.5 x 2.2 x 0.1 cm. Epifix 2.0 x 2.0 cm was applied to the left heel full-thickness ulceration with 100% use. Seventh application. The graft site was free and clear of any infection. The wound/skin graft substitute was dressed with nonadherent bandage secured in place with Steri-Strips followed by bolster dressing as well as a double layer Tubigrip. 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 Any new allergies or adverse reactions No Had a fall/change in ADL's that may No increase risk of falls Signs or symptoms of abuse and/or No neglect since last visit Have you been in the hospital since your No last visit? Has dressing in place as prescribed Yes Has compression in place as prescribed Yes Has offloadiing in place as prescribed N/A Experienced any changes in pain level or No management Left Footwear Slipper Right Footwear Slipper Pain Scale: 0-10 Numeric Is Patient Pain Free? Yes - Nurse 1 - General Ulcer Measurement Start: 09/02/24 09:42 Freq: Status: Active Protocol: Activity Type Activity Date Activity User E-sign Co-sign Detail Recorded Client Recorded Date Recorded By Document 09/02/24 09:42 MANISHA [id number] 09/02/24 09:44 09/02/24 09:42 Wound Center Nurse 1 24 lt heel -Current Size (cm) - Length 1.6 -Current Size (cm) - Width 2.3 -Current Size (cm) - Depth 0.1 -Total Square Cm 3.68 -Exudate Amt Medium -Exudate Type Serosanguineous -Wound Margin Distinct, Outline Attached -Granulation Amt Medium (34-66%) -Granulation Quality [place] -Necrosis Amt Medium (34-66%) -Necrotic Tissue Type Adherent Slough -Texture (Bren-wound Skin Appearance) Assessed -Moisture (Bren-wound Skin Appearance) Assessed, Maceration -Color (Bren-wound Skin Appearance) Assessed -Temperature (Bren-wound Skin No Abnormality Appearance) (Pt Warm) -Tenderness on Palpation (Bren-wound No Skin Appearance) -Ulcer Cleansing Soap and Water -Foul Odor after Cleansing No -Anesthetic Used 5% Lidocaine Gel Right Calf (cm) 36 Right Ankle (cm) 23 Left Calf (cm) 36 Left Ankle (cm) 23 - Nurse 2 - General Ulcer CM Notes Start: 09/02/24 09:42 Freq: Status: Active Protocol: Activity Type Activity Date Activity User E-sign Co-sign Detail Recorded Client Recorded Date Recorded By Document 09/02/24 10:07 JAUN [id number] 09/02/24 10:15 JAUN 09/02/24 10:07 Wound Center Nurse 2 24 lt heel -Time 10:08 -Correct Patient Yes -Correct Side, Site, Position Yes -Correct Procedure Yes -Procedure Performed Yes -Type of Procedure Debridement -Clinical Debridement Subcutaneous -Tissue Removed Subcutaneous -Post Debridement (cm) - Length 1.5 -Post Debridement (cm) - Width 2.2 -Post Debridement (cm) - Depth 0.1 -Total Square (Post) (cm) 3.30 -Area of Debridement (cm) - Length 1.5 -Area of Debridement (cm) - Width 2.2 -Total Square (Area) (cm) 3.30 -Tunneling No -Undermining/Tunneling No -Circular Undermining No -Wound/Ulcer Outcome Not Healed -Ulcer Cleansing Rinsed/ Irrigated with Saline -Foul Odor after Cleansing No -Bioengineered Tissue Yes -Type of Bioengineered Tissue Epifix -Expiration Date 09/29/28 -Product Lot Number [id number] -Percent Used 100 -Lot number of Saline Used [id number] -Bleeding Controlled with Pressure -Treatment Response Procedure Tolerated Well -Offloading No -Debridement - Subq, 1st 20sq cm No -Apply Skin Sub - 1st 25 sq cm - Feet 1 -Epifix Application 1-4 (per sq cm) 4 Pain Scale: 0-10 Numeric Is Patient Pain Free? Yes Assessment/Plan Assessment/Plan (1) Non-pressure chronic ulcer of left heel and midfoot with fat layer exposed: CODE(S): L97.422 - Non-pressure chronic ulcer of left heel and midfoot with fat layer exposed PLAN: Patient was examined and evaluated. All findings were discussed with the patient. All questions were answered to the patient's satisfaction. Excisional debridement down to including subcutaneous tissue with a number 5 mm dermal curette to the left heel done without incident. Predebridement measurement was 1.4 x 2.0 x 0.1 cm. Postdebridement measurement is 1.5 x 2.2 x 0.1 cm. Epifix 2.0 x 2.0 cm was applied to the left heel full-thickness ulceration with 100% use. Seventh application. The graft site was free and clear of any infection. The wound/skin graft substitute was dressed with nonadherent bandage secured in place with Steri-Strips followed by bolster dressing as well as a multilayer compression bandage to the right lower extremity as well as to the left lower extremity. The fluid-filled bullae to the right second digit was lanced but not deroofed. There was evidence of serous fluid that was drained with no malodor or sign of infection. Betadine paint was applied. Dressing changes will be given to home health care. Follow-up at the wound care center with Dr. Solano in 1 week. (2) Blister of toe of right foot: CODE(S): S90.424A - Blister (nonthermal), right lesser toe(s), initial encounter QUALIFIERS: Encounter type: initial encounter Qualified Code(s): S90.424A - Blister (nonthermal), right lesser toe(s), initial encounter
[2024-09-09 09:21] VITALS: BP 154/88; PULSE 90; RESP 18; TEMP 36.4
--- NOTE | 2024-09-09 13:12 | PCM.WC.PN ---
History of Present Illness Date of Service: 09/09/24 Chief Complaint: Left heel ulceration History of Wound: A 63-year-old female who presents to the wound care center today for left heel ulceration and bilateral lower extremity edema with multiple leg wounds secondary to previous blisters. In October 2019, patient had rubbing in shoes while shopping which led to a blister that developed into an ulceration. Patient was then seen by Prieto AmezquitaP.Usha. for wound care. Patient then became infected and was admitted to the hospital. Patient was noted to have OM on MRI. Patient wanted to avoid surgery so a correction course of appropriate IV antibiotics was the treatment chosen. Patient was also noted to have hyperglycemia and has worked with hospitalist and PCP to try to get better control. Blood sugar levels remain elevated. Patient also had LEAS obtained in the hospital which suggested patient had the proper blood flow to allow healing. Patient has since finished correction course of antibiotics. Patient has since been seen on a weekly basis in office with progression and regression of wound noted over the weeks. Patient has tried various dressing options including wet to dry and santyl. The most progress was noted with Santyl but patient ran out and was unable to refill due to insurance issues. During which time the wound regressed. She also has an offloading surgical shoe and offloading boot to relieve pressure. Patient care is henceforth being carried out at the wound care center. Patient not currently on any antibiotics. Patient has since began skin graft aplications significant improvement is been noted to her foot overall. Patient has finished epifix graft applications with some very small remaining wound noted to left heel. Patient has new wounds noted to bilateral third digits. The right 3rd digit wound has healed. Her left ankle ulcer remains healed Patient relates that ambulation is getting easier and she is rebuilding her strength slowly. She has not had any worsening of minor remaining heel wound since beginning ambulation again. 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 Her has been helping her change the dressings daily to the left heel. She had been following in the wound care center in 2021 for left heel ulceration but was subsequently lost to follow-up. She cites transportation issues. She presents to the wound care center today for continued care of her left heel ulceration and bilateral lower extremity wounds secondary to edema. Progress of Wound: Stable full-thickness wound left heel Subjective Subjective Ms. Winkler is a 63-year-old female presenting to wound care center today for follow-up evaluation of full-thickness wound with skin graft substitute applied to left heel. She has left her multilayer compression dressing clean dry and intact. She continue to offload as discussed. She denies strikethrough. Denies trauma. Denies constitutional symptoms. No other pedal complaints at this time. Objective Data Objective Data Vital Signs: Vital Signs Temp Pulse Resp BP O2 Del Method 97.5 F L 90 18 154/88 H Room Air 09/09/24 09:21 09/09/24 09:21 09/09/24 09:21 09/09/24 09:21 09/02/24 09:42 Oxygen Delivery Method Room Air Physical Exam Narrative Vascular: DP and PT pulse are palpable to the bilateral lower extremity. CFT is brisk. Nonpitting edema appreciated bilateral lower extremity. Blanchable erythema to the lesser digits bilateral. Skin temperature great is warm to warm from proximal ankles to distal digits bilateral. Light touch intact. Patient does respond to painful stimuli. Dermatological: Full-thickness wound to the left heel measures 1.7 x 2.0 x 0.1 cm wound base is granular with no sign of infection. Negative probe to bone. Evidence of fluid-filled bullae to the right second digit. No sign of infection. Excisional debridement down to including subcutaneous tissue with a number 5 mm dermal curette to the left heel done without incident. Predebridement measurement was 1.4 x 1.8 x 0.1 cm. Postdebridement measurement is 1.7 x 2.0 x 0.1 cm. Epifix 2.0 x 2.0 cm was applied to the left heel full-thickness ulceration with 100% use. Eighth application. The graft site was free and clear of any infection. The wound/skin graft substitute was dressed with nonadherent bandage secured in place with Steri-Strips followed by bolster dressing as well as a 3M multilayer compression bandage. Musculoskeletal: No pain to palpation to the full-thickness wound to left heel. No pain with calf pressure. Debridement Note Debridement Note Debridement Free Text: Excisional debridement down to including subcutaneous tissue with a number 5 mm dermal curette to the left heel done without incident. Predebridement measurement was 1.4 x 2.0 x 0.1 cm. Postdebridement measurement is 1.5 x 2.2 x 0.1 cm. Epifix 2.0 x 2.0 cm was applied to the left heel full-thickness ulceration with 100% use. Seventh application. The graft site was free and clear of any infection. The wound/skin graft substitute was dressed with nonadherent bandage secured in place with Steri-Strips followed by bolster dressing as well as a double layer Tubigrip. Post-Debridement Measurements and Additional Note: Post-Debridement Measurements/Treatment - Nurse 1 - General Ulcer Assessment Start: 09/02/24 09:42 Freq: Status: Active Protocol: MOOK Activity Type Activity Date Activity User E-sign Co-sign Detail Recorded Client Recorded Date Recorded By Document 09/02/24 09:42 KW [id number] 09/02/24 09:44 KW Document 09/09/24 09:21 DL [id number] 09/09/24 09:31 DL 09/02/24 09/09/24 09:42 09:21 - Today's Visit Information Type of service Follow-up Visit Follow-up Visit (Physician/CAN WORKER (Physician/CAN WORKER ) ) Arrival Mode Wheelchair Wheelchair Transfer Assistance Manual Transfer Assist (Other) x1 Patient Identification Verified (Name & Yes Yes ) Patient Requires Transmission-Based No Precautions Vital Signs Temperature (97.8 F-99.1 F) 97.5 F L Temperature Source Temporal Pulse Rate (60-100) 88 90 Pulse Location Monitor Monitor Respiratory Rate (12-18) 16 18 Respiratory rate source Ausculation Observation Oxygen Delivery Method Room Air Blood Pressure (90/60-120/80) 115/68 154/88 H Blood Pressure Mean (mm Hg) 83 110 Source Monitor Monitor Position Semi-Fowlers Blood Pressure Location Right Arm History Since Last Visit- (Skip if this is Patient's initial visit) Have you changed medications since your No No last visit? Any new allergies or adverse reactions No No Had a fall/change in ADL's that may No No increase risk of falls Signs or symptoms of abuse and/or No No neglect since last visit Have you been in the hospital since your No No last visit? Has dressing in place as prescribed Yes Yes Has compression in place as prescribed Yes Yes Has offloadiing in place as prescribed N/A Yes Experienced any changes in pain level or No No management Left Footwear Slipper Right Footwear Slipper Pain Scale: 0-10 Numeric Is Patient Pain Free? Yes Yes WC - Nurse 1 - General Ulcer Measurement Start: 09/02/24 09:42 Freq: Status: Active Protocol: Activity Type Activity Date Activity User E-sign Co-sign Detail Recorded Client Recorded Date Recorded By Document 09/02/24 09:42 KW [id number] 09/02/24 09:44 KW Document 09/09/24 09:21 DL [id number] 09/09/24 09:31 DL 09/02/24 09/09/24 09:42 09:21 Wound Center Nurse 1 24 lt heel -Current Size (cm) - Length 1.6 1.3 -Current Size (cm) - Width 2.3 1.8 -Current Size (cm) - Depth 0.1 0.1 -Total Square Cm 3.68 2.34 -Exudate Amt Medium Medium -Exudate Type Serosanguineous Serosanguineous -Wound Margin Distinct, Distinct, Outline Outline Attached Attached -Granulation Amt Medium (34-66%) Medium (34-66%) -Granulation Quality [place] -Necrosis Amt Medium (34-66%) Medium (34-66%) -Necrotic Tissue Type Adherent Slough Adherent Slough -Structure Exposed N/A -Texture (Bren-wound Skin Appearance) Assessed Scarring -Moisture (Bren-wound Skin Appearance) Assessed, No Abnormality Maceration -Color (Bren-wound Skin Appearance) Assessed No Abnormality -Temperature (Bren-wound Skin No Abnormality No Abnormality Appearance) (Pt Warm) (Pt Warm) -Tenderness on Palpation (Bren-wound No Skin Appearance) -Ulcer Cleansing Soap and Water Soap and Water -Foul Odor after Cleansing No No -Anesthetic Used 5% Lidocaine 5% Lidocaine Gel Gel Right Calf (cm) 36 Right Ankle (cm) 23 Left Calf (cm) 36 Left Ankle (cm) 23 WC - Nurse 2 - General Ulcer CM Notes Start: 09/02/24 09:42 Freq: Status: Active Protocol: Activity Type Activity Date Activity User E-sign Co-sign Detail Recorded Client Recorded Date Recorded By Document 09/02/24 10:07 JF [id number] 09/02/24 10:15 Document 09/09/24 10:28 [id number] 09/09/24 10:37 09/02/24 09/09/24 10:07 10:28 Wound Center Nurse 2 24 lt heel -Time 10:08 10:29 -Correct Patient Yes Yes -Correct Side, Site, Position Yes Yes -Correct Procedure Yes Yes -Procedure Performed Yes Yes -Type of Procedure Debridement Debridement -Clinical Debridement Subcutaneous Subcutaneous -Tissue Removed Subcutaneous Subcutaneous -Post Debridement (cm) - Length 1.5 1.7 -Post Debridement (cm) - Width 2.2 2.0 -Post Debridement (cm) - Depth 0.1 0.1 -Total Square (Post) (cm) 3.30 3.40 -Area of Debridement (cm) - Length 1.5 1.7 -Area of Debridement (cm) - Width 2.2 2.0 -Total Square (Area) (cm) 3.30 3.40 -Tunneling No No -Undermining/Tunneling No No -Circular Undermining No No -Wound/Ulcer Outcome Not Healed Not Healed -Ulcer Cleansing Rinsed/ Rinsed/ Irrigated with Irrigated with Saline Saline -Foul Odor after Cleansing No No -Bioengineered Tissue Yes Yes -Type of Bioengineered Tissue Epifix Epifix 18mm Disc -Expiration Date 09/29/28 09/29/28 -Product Lot Number [id number] -Percent Used 100 100 -Lot number of Saline Used [id number] -Bleeding Controlled with Pressure Pressure -Treatment Response Procedure Procedure Tolerated Well Tolerated Well -Offloading No No -Debridement - Subq, 1st 20sq cm No No -Apply Skin Sub - 1st 25 sq cm - Feet 1 1 -Epifix Application 1-4 (per sq cm) 4 4 Pain Scale: 0-10 Numeric Is Patient Pain Free? Yes Yes WC - Nurse 3 - General Ulcer D/C NN Start: 09/02/24 09:42 Freq: Status: Active Protocol: Activity Type Activity Date Activity User E-sign Co-sign Detail Recorded Client Recorded Date Recorded By Document 09/02/24 10:37 MT [id number] 09/02/24 10:46 MT Edit Result 09/02/24 10:37 MT (1) [id number] 09/02/24 14:34 MT Document 09/09/24 11:07 GM [id number] 09/09/24 11:08 GM (1) BLE - Multi-Layer Compression Bilat (Qty 2 => 1 applied) 09/02/24 09/09/24 10:37 11:07 Wound Care Center Nurse 3 24 lt heel -Ulcer Cleansing Not Cleansed -Foul Odor after Cleansing No -Other Dressing abd -Primary Dressing Covered/Secured with Dry Gauze Dry Gauze & Roll Gauze, Secured with Tape -Other Covering abd pad BLE -Multi-Layered Wrap Application Multi-Layer Multi-Layer Comp - Bilat ($ Comp - Bilat ($ ) ) -Stockings No -Multi-Layer Compression Bilat (Qty 1 1 applied) Pain Scale: 0-10 Numeric Is Patient Pain Free? Yes Yes WC - Visit Discharge Discharge Condition Stable Stable Ambulatory Status Ambulatory Wheelchair Transportation Private Auto Medication Reconcilliation completed & No provided to patient/care provider Clinical Summary of Care Provided Yes Notes: generally weak Assessment/Plan Assessment/Plan (1) Non-pressure chronic ulcer of left heel and midfoot with fat layer exposed: CODE(S): L97.422 - Non-pressure chronic ulcer of left heel and midfoot with fat layer exposed PLAN: Patient was examined and evaluated. All findings were discussed with the patient. All questions were answered to the patient's satisfaction. Excisional debridement down to including subcutaneous tissue with a number 5 mm dermal curette to the left heel done without incident. Predebridement measurement was 1.4 x 1.8 x 0.1 cm. Postdebridement measurement is 1.7 x 2.0 x 0.1 cm. Epifix 2.0 x 2.0 cm was applied to the left heel full-thickness ulceration with 100% use. Eighth application. The graft site was free and clear of any infection. The wound/skin graft substitute was dressed with nonadherent bandage secured in place with Steri-Strips followed by bolster dressing as well as a 3M multilayer compression bandage. Right second digit eschar was dressed with Betadine paint. An additional multilayer compression bandage by 3M was donned to the right lower extremity. Patient will have home health care change her dressings while at home. Follow-up at the wound care center with Dr. Solano in 1 week.
[2024-09-16 09:52] VITALS: BP 122/66; PULSE 86; RESP 18; TEMP 35.8
--- NOTE | 2024-09-16 12:55 | PCM.WC.PN ---
History of Present Illness Date of Service: 09/16/24 Chief Complaint: Left heel ulceration History of Wound: A 63-year-old female who presents to the wound care center today for left heel ulceration and bilateral lower extremity edema with multiple leg wounds secondary to previous blisters. In October 2019, patient had rubbing in shoes while shopping which led to a blister that developed into an ulceration. Patient was then seen by Prieto AmezquitaP.Usha. for wound care. Patient then became infected and was admitted to the hospital. Patient was noted to have OM on MRI. Patient wanted to avoid surgery so a longterm course of appropriate IV antibiotics was the treatment chosen. Patient was also noted to have hyperglycemia and has worked with hospitalist and PCP to try to get better control. Blood sugar levels remain elevated. Patient also had LEAS obtained in the hospital which suggested patient had the proper blood flow to allow healing. Patient has since finished longterm course of antibiotics. Patient has since been seen on a weekly basis in office with progression and regression of wound noted over the weeks. Patient has tried various dressing options including wet to dry and santyl. The most progress was noted with Santyl but patient ran out and was unable to refill due to insurance issues. During which time the wound regressed. She also has an offloading surgical shoe and offloading boot to relieve pressure. Patient care is henceforth being carried out at the wound care center. Patient not currently on any antibiotics. Patient has since began skin graft aplications significant improvement is been noted to her foot overall. Patient has finished epifix graft applications with some very small remaining wound noted to left heel. Patient has new wounds noted to bilateral third digits. The right 3rd digit wound has healed. Her left ankle ulcer remains healed Patient relates that ambulation is getting easier and she is rebuilding her strength slowly. She has not had any worsening of minor remaining heel wound since beginning ambulation again. 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 Her has been helping her change the dressings daily to the left heel. She had been following in the wound care center in 2021 for left heel ulceration but was subsequently lost to follow-up. She cites transportation issues. She presents to the wound care center today for continued care of her left heel ulceration and bilateral lower extremity wounds secondary to edema. Progress of Wound: Stable full-thickness wound left heel Subjective Subjective Ms. Winkler is a 63-year-old female presenting to wound care center for follow-up evaluation of full-thickness wound to the left heel. She has left her multilayer compression bandages clean dry and intact as well as the amnion skin graft substitute to the left heel. She is offloading as discussed. She is following up with her dialysis treatment as scheduled. Denies trauma. Denies constitutional symptoms. Other pedal complaints at this time. Objective Data Objective Data Vital Signs: Vital Signs Temp Pulse Resp BP O2 Del Method 96.5 F L 86 18 122/66 H Room Air 09/16/24 09:52 09/16/24 09:52 09/16/24 09:52 09/16/24 09:52 09/16/24 09:52 Oxygen Delivery Method Room Air Physical Exam Narrative Vascular: DP and PT pulse are palpable to the bilateral lower extremity. CFT is brisk. Nonpitting edema appreciated bilateral lower extremity. Blanchable erythema to the lesser digits bilateral. Skin temperature great is warm to warm from proximal ankles to distal digits bilateral. Light touch intact. Patient does respond to painful stimuli. Dermatological: Full-thickness wound to the left heel measures 1.6 x 1.6 x 0.1 cm wound base is granular with no sign of infection. Negative probe to bone. Excisional debridement down to including subcutaneous tissue with a number 5 mm dermal curette to the left heel done without incident. Predebridement measurement was 1.3 x 1.0 x 0.1 cm. Postdebridement measurement is 1.6 x 1.6 x 0.1 cm. Epifix 18mm was applied to the left heel full-thickness ulceration with 100% use. Ninth application. The graft site was free and clear of any infection. The wound/skin graft substitute was dressed with nonadherent bandage secured in place with Steri-Strips followed by bolster dressing as well as a 3M multilayer compression bandage. Musculoskeletal: No pain to palpation to the full-thickness wound to left heel. No pain with calf pressure. Debridement Note Debridement Note Debridement Free Text: Excisional debridement down to including subcutaneous tissue with a number 5 mm dermal curette to the left heel done without incident. Predebridement measurement was 1.3 x 1.0 x 0.1 cm. Postdebridement measurement is 1.6 x 1.6 x 0.1 cm. Epifix 18mm was applied to the left heel full-thickness ulceration with 100% use. Ninth application. The graft site was free and clear of any infection. The wound/skin graft substitute was dressed with nonadherent bandage secured in place with Steri-Strips followed by bolster dressing as well as a 3M multilayer compression bandage. Post-Debridement Measurements and Additional Note: Post-Debridement Measurements/Treatment - Nurse 1 - General Ulcer Assessment Start: 09/02/24 09:42 Freq: Status: Active Protocol: WC.LEDAT Activity Type Activity Date Activity User E-sign Co-sign Detail Recorded Client Recorded Date Recorded By Document 09/02/24 09:42 KW [id number] 09/02/24 09:44 KW Document 09/09/24 09:21 DL [id number] 09/09/24 09:31 DL Document 09/16/24 09:52 KW [id number] 09/16/24 10:07 KW 09/02/24 09/09/24 09/16/24 09:42 09:21 09:52 - Today's Visit Information Type of service Follow-up Visit Follow-up Visit Follow-up Visit (Physician/PARKS RECREATION DIRECTOR (Physician/PARKS RECREATION DIRECTOR (Physician/PARKS RECREATION DIRECTOR ) ) ) Arrival Mode Wheelchair Wheelchair Wheelchair Transfer Assistance Manual Transfer Assist (Other) x1 Patient Identification Verified (Name & Yes Yes Yes ) Patient Requires Transmission-Based No Precautions Vital Signs Temperature (97.8 F-99.1 F) 97.5 F L 96.5 F L Temperature Source Temporal Temporal Pulse Rate (60-100) 88 90 86 Pulse Location Monitor Monitor Monitor Respiratory Rate (12-18) 16 18 18 Respiratory rate source Ausculation Observation Observation Oxygen Delivery Method Room Air Room Air Blood Pressure (90/60-120/80) 115/68 154/88 H 122/66 H Blood Pressure Mean (mm Hg) 83 110 84 Source Monitor Monitor Monitor Position Semi-Fowlers Sitting Blood Pressure Location Right Arm Right Arm History Since Last Visit- (Skip if this is Patient's initial visit) Have you changed medications since your No No No last visit? Any new allergies or adverse reactions No No No Had a fall/change in ADL's that may No No No increase risk of falls Signs or symptoms of abuse and/or No No No neglect since last visit Have you been in the hospital since your No No No last visit? Has dressing in place as prescribed Yes Yes Yes Has compression in place as prescribed Yes Yes Yes Has offloadiing in place as prescribed N/A Yes N/A Experienced any changes in pain level or No No No management Left Footwear Slipper Slipper Right Footwear Slipper Slipper Pain Scale: 0-10 Numeric Is Patient Pain Free? Yes Yes Yes WC - Nurse 1 - General Ulcer Measurement Start: 09/02/24 09:42 Freq: Status: Active Protocol: Activity Type Activity Date Activity User E-sign Co-sign Detail Recorded Client Recorded Date Recorded By Document 09/02/24 09:42 KW [id number] 09/02/24 09:44 KW Document 09/09/24 09:21 DL [id number] 09/09/24 09:31 DL Document 09/16/24 09:52 KW [id number] 09/16/24 10:07 KW 09/02/24 09/09/24 09/16/24 09:42 09:21 09:52 Wound Center Nurse 1 24 lt heel -Current Size (cm) - Length 1.6 1.3 1.2 -Current Size (cm) - Width 2.3 1.8 0.4 -Current Size (cm) - Depth 0.1 0.1 0.1 -Total Square Cm 3.68 2.34 0.48 -Date of Last Picture (Recall this 09/16/24 field) -Exudate Amt Medium Medium Small -Exudate Type Serosanguineous Serosanguineous Serosanguineous -Wound Margin Distinct, Distinct, Distinct, Outline Outline Outline Attached Attached Attached -Granulation Amt Medium (34-66%) Medium (34-66%) Medium (34-66%) -Granulation Quality [place] Red -Necrosis Amt Medium (34-66%) Medium (34-66%) Medium (34-66%) -Necrotic Tissue Type Adherent Slough Adherent Slough Adherent Slough -Structure Exposed N/A -Texture (Bren-wound Skin Appearance) Assessed Scarring Assessed,Callus -Moisture (Bren-wound Skin Appearance) Assessed, No Abnormality Assessed,Dry/ Maceration Scaly -Color (Bren-wound Skin Appearance) Assessed No Abnormality Assessed -Temperature (Bren-wound Skin No Abnormality No Abnormality No Abnormality Appearance) (Pt Warm) (Pt Warm) (Pt Warm) -Tenderness on Palpation (Bren-wound No No Skin Appearance) -Ulcer Cleansing Soap and Water Soap and Water Soap and Water -Foul Odor after Cleansing No No No -Anesthetic Used 5% Lidocaine 5% Lidocaine 5% Lidocaine Gel Gel Gel Right Calf (cm) 36 Right Ankle (cm) 23 Left Calf (cm) 36 Left Ankle (cm) 23 WC - Nurse 2 - General Ulcer CM Notes Start: 09/02/24 09:42 Freq: Status: Active Protocol: Activity Type Activity Date Activity User E-sign Co-sign Detail Recorded Client Recorded Date Recorded By Document 09/02/24 10:07 [id number] 09/02/24 10:15 Document 09/09/24 10:28 [id number] 09/09/24 10:37 Document 09/16/24 10:42 [id number] 09/16/24 10:47 09/02/24 09/09/24 09/16/24 10:07 10:28 10:42 Wound Center Nurse 2 24 lt heel -Time 10:08 10:29 10:42 -Correct Patient Yes Yes Yes -Correct Side, Site, Position Yes Yes Yes -Correct Procedure Yes Yes Yes -Procedure Performed Yes Yes Yes -Type of Procedure Debridement Debridement Debridement -Clinical Debridement Subcutaneous Subcutaneous Subcutaneous -Tissue Removed Subcutaneous Subcutaneous Subcutaneous -Post Debridement (cm) - Length 1.5 1.7 1.6 -Post Debridement (cm) - Width 2.2 2.0 1.6 -Post Debridement (cm) - Depth 0.1 0.1 0.1 -Total Square (Post) (cm) 3.30 3.40 2.56 -Area of Debridement (cm) - Length 1.5 1.7 1.6 -Area of Debridement (cm) - Width 2.2 2.0 1.6 -Total Square (Area) (cm) 3.30 3.40 2.56 -Tunneling No No No -Undermining/Tunneling No No No -Circular Undermining No No No -Wound/Ulcer Outcome Not Healed Not Healed Not Healed -Ulcer Cleansing Rinsed/ Rinsed/ Rinsed/ Irrigated with Irrigated with Irrigated with Saline Saline Saline -Foul Odor after Cleansing No No No -Bioengineered Tissue Yes Yes Yes -Type of Bioengineered Tissue Epifix Epifix 18mm Epifix 18mm Disc Disc -Expiration Date 09/29/28 09/29/28 04/01/29 -Product Lot Number [id number] -Percent Used 100 100 100 -Lot number of Saline Used [id number] -Bleeding Controlled with Pressure Pressure Pressure -Treatment Response Procedure Procedure Procedure Not Tolerated Well Tolerated Well Tolerated Well -Offloading No No No -Debridement - Subq, 1st 20sq cm No No No -Apply Skin Sub - 1st 25 sq cm - Feet 1 1 1 -Epifix Application 1-4 (per sq cm) 4 4 -Epifix 18mm Disc Application 1-4 3 Pain Scale: 0-10 Numeric Is Patient Pain Free? Yes Yes Yes WC - Nurse 3 - General Ulcer D/C NN Start: 09/02/24 09:42 Freq: Status: Active Protocol: Activity Type Activity Date Activity User E-sign Co-sign Detail Recorded Client Recorded Date Recorded By Document 09/02/24 10:37 MT [id number] 09/02/24 10:46 MT Edit Result 09/02/24 10:37 MT (1) [id number] 09/02/24 14:34 MT Document 09/09/24 11:07 GM [id number] 09/09/24 11:08 GM Document 09/16/24 10:50 KW [id number] 09/16/24 10:51 KW (1) BLE - Multi-Layer Compression Bilat (Qty 2 => 1 applied) 09/02/24 09/09/24 09/16/24 10:37 11:07 10:50 Wound Care Center Nurse 3 24 lt heel -Ulcer Cleansing Not Cleansed -Foul Odor after Cleansing No -Other Dressing abd -Primary Dressing Covered/Secured with Dry Gauze Dry Gauze & Dry Gauze Roll Gauze, Secured with Tape -Other Covering abd pad BLE -Multi-Layered Wrap Application Multi-Layer Multi-Layer Multi-Layer Comp - Bilat ($ Comp - Bilat ($ Comp - Bilat ($ ) ) ) -Stockings No -Multi-Layer Compression Bilat (Qty 1 1 1 applied) Pain Scale: 0-10 Numeric Is Patient Pain Free? Yes Yes Yes WC - Visit Discharge Discharge Condition Stable Stable Stable Ambulatory Status Ambulatory Wheelchair Wheelchair Transportation Private Auto Medication Reconcilliation completed & No No provided to patient/care provider Clinical Summary of Care Provided Yes Yes Notes: generally weak Assessment/Plan Assessment/Plan (1) Non-pressure chronic ulcer of left heel and midfoot with fat layer exposed: CODE(S): L97.422 - Non-pressure chronic ulcer of left heel and midfoot with fat layer exposed PLAN: Patient was examined and evaluated. All findings were discussed with the patient. All questions were answered to the patient's satisfaction. Excisional debridement down to including subcutaneous tissue with a number 5 mm dermal curette to the left heel done without incident. Predebridement measurement was 1.3 x 1.0 x 0.1 cm. Postdebridement measurement is 1.6 x 1.6 x 0.1 cm. Epifix 18mm was applied to the left heel full-thickness ulceration with 100% use. Ninth application. The graft site was free and clear of any infection. The wound/skin graft substitute was dressed with nonadherent bandage secured in place with Steri-Strips followed by bolster dressing as well as a 3M multilayer compression bandage. Right second digit eschar was dressed with Betadine paint. An additional multilayer compression bandage by 3M was donned to the right lower extremity. Patient will have home health care change her dressings while at home. Follow-up at the wound care center with Dr. Solano in 1 week. (2) Other specified peripheral vascular diseases: CODE(S): I73.89 - Other specified peripheral vascular diseases
--- NOTE | 2024-09-17 10:27 | WC ---
PHOTO 09/16/24 LT HEEL
--- NOTE | 2024-09-17 10:27 | WC ---
PHOTO 09/16/24 RIGHT 2ND TOE
[2024-09-23 09:11] VITALS: BP 108/62; PULSE 87; RESP 18; TEMP 36.4
--- NOTE | 2024-09-23 09:41 | PCM.WC.PN ---
History of Present Illness Date of Service: 09/23/24 Chief Complaint: Left heel ulceration History of Wound: A 63-year-old female who presents to the wound care center today for left heel ulceration and bilateral lower extremity edema with multiple leg wounds secondary to previous blisters. In October 2019, patient had rubbing in shoes while shopping which led to a blister that developed into an ulceration. Patient was then seen by Prieto AmezquitaP.Usha. for wound care. Patient then became infected and was admitted to the hospital. Patient was noted to have OM on MRI. Patient wanted to avoid surgery so a jail course of appropriate IV antibiotics was the treatment chosen. Patient was also noted to have hyperglycemia and has worked with hospitalist and PCP to try to get better control. Blood sugar levels remain elevated. Patient also had LEAS obtained in the hospital which suggested patient had the proper blood flow to allow healing. Patient has since finished jail course of antibiotics. Patient has since been seen on a weekly basis in office with progression and regression of wound noted over the weeks. Patient has tried various dressing options including wet to dry and santyl. The most progress was noted with Santyl but patient ran out and was unable to refill due to insurance issues. During which time the wound regressed. She also has an offloading surgical shoe and offloading boot to relieve pressure. Patient care is henceforth being carried out at the wound care center. Patient not currently on any antibiotics. Patient has since began skin graft aplications significant improvement is been noted to her foot overall. Patient has finished epifix graft applications with some very small remaining wound noted to left heel. Patient has new wounds noted to bilateral third digits. The right 3rd digit wound has healed. Her left ankle ulcer remains healed Patient relates that ambulation is getting easier and she is rebuilding her strength slowly. She has not had any worsening of minor remaining heel wound since beginning ambulation again. 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 Her has been helping her change the dressings daily to the left heel. She had been following in the wound care center in 2021 for left heel ulceration but was subsequently lost to follow-up. She cites transportation issues. She presents to the wound care center today for continued care of her left heel ulceration and bilateral lower extremity wounds secondary to edema. Progress of Wound: Stable full-thickness wound left heel Subjective Subjective Ms. Winkler is a 62-year-old female presenting to wound care center for follow-up evaluation of a left heel full-thickness wound. Patient has left the amnion skin graft clean dry and intact. She has been compliant with her multilayer compression bandages. She is following her scheduled dialysis. She has no pain to the left heel. She is offloading whenever at rest. Denies trauma. Denies constitutional symptoms. No other pedal complaints at this time. Objective Data Objective Data Vital Signs: Vital Signs Temp Pulse Resp BP O2 Del Method 97.6 F L 87 18 108/62 Room Air 09/23/24 09:11 09/23/24 09:11 09/23/24 09:11 09/23/24 09:11 09/23/24 09:11 Oxygen Delivery Method Room Air Physical Exam Narrative Vascular: DP and PT pulse are palpable to the bilateral lower extremity. CFT is brisk. Nonpitting edema appreciated bilateral lower extremity. Blanchable erythema to the lesser digits bilateral. Skin temperature great is warm to warm from proximal ankles to distal digits bilateral. Light touch intact. Patient does respond to painful stimuli. Dermatological: Full-thickness wound to the left heel measures 1.0 x 1.4 x 0.1 cm. Wound base is granular with no sign of infection. Negative probe to bone. Excisional debridement down to including subcutaneous tissue with a number 5 mm dermal curette to the left heel done without incident. Predebridement measurement was sanguinous crust postdebridement measurement is 1.0 x 1.4 x 0.1 cm. Epifix 2.0 x 2.0 cm was applied to the left heel full-thickness ulceration with 100% use. 10th application. The graft site was free and clear of any infection. The wound/skin graft substitute was dressed with nonadherent bandage secured in place with Steri-Strips followed by bolster dressing as well as a 3M multilayer compression bandage. Musculoskeletal: No pain to palpation to the full-thickness wound to left heel. No pain with calf pressure. Debridement Note Debridement Note Debridement Free Text: Excisional debridement down to including subcutaneous tissue with a number 5 mm dermal curette to the left heel done without incident. Predebridement measurement was sanguinous crust postdebridement measurement is 1.0 x 1.4 x 0.1 cm. Epifix 2.0 x 2.0 cm was applied to the left heel full-thickness ulceration with 100% use. 10th application. The graft site was free and clear of any infection. The wound/skin graft substitute was dressed with nonadherent bandage secured in place with Steri-Strips followed by bolster dressing as well as a 3M multilayer compression bandage. Post-Debridement Measurements and Additional Note: Post-Debridement Measurements/Treatment - Nurse 1 - General Ulcer Assessment Start: 09/02/24 09:42 Freq: Status: Active Protocol: SAMARIA.[email or web address] Activity Type Activity Date Activity User E-sign Co-sign Detail Recorded Client Recorded Date Recorded By Document 09/02/24 09:42 KW [id number] 09/02/24 09:44 KW Document 09/09/24 09:21 DL [id number] 09/09/24 09:31 DL Document 09/16/24 09:52 KW [id number] 09/16/24 10:07 KW Document 09/23/24 09:11 KW [id number] 09/23/24 09:15 KW 09/02/24 09/09/24 09/16/24 09:42 09:21 09:52 - Today's Visit Information Type of service Follow-up Visit Follow-up Visit Follow-up Visit (Physician/WAREHOUSE PRICING AND INVENTORY CLERK (Physician/WAREHOUSE PRICING AND INVENTORY CLERK (Physician/WAREHOUSE PRICING AND INVENTORY CLERK ) ) ) Arrival Mode Wheelchair Wheelchair Wheelchair Transfer Assistance Manual Transfer Assist (Other) x1 Patient Identification Verified (Name & Yes Yes Yes ) Patient Requires Transmission-Based No Precautions Vital Signs Temperature (97.8 F-99.1 F) 97.5 F L 96.5 F L Temperature Source Temporal Temporal Pulse Rate (60-100) 88 90 86 Pulse Location Monitor Monitor Monitor Respiratory Rate (12-18) 16 18 18 Respiratory rate source Ausculation Observation Observation Oxygen Delivery Method Room Air Room Air Blood Pressure (90/60-120/80) 115/68 154/88 H 122/66 H Blood Pressure Mean (mm Hg) 83 110 84 Source Monitor Monitor Monitor Position Semi-Fowlers Sitting Blood Pressure Location Right Arm Right Arm History Since Last Visit- (Skip if this is Patient's initial visit) Have you changed medications since your No No No last visit? Any new allergies or adverse reactions No No No Had a fall/change in ADL's that may No No No increase risk of falls Signs or symptoms of abuse and/or No No No neglect since last visit Have you been in the hospital since your No No No last visit? Has dressing in place as prescribed Yes Yes Yes Has compression in place as prescribed Yes Yes Yes Has offloadiing in place as prescribed N/A Yes N/A Experienced any changes in pain level or No No No management Left Footwear Slipper Slipper Right Footwear Slipper Slipper Pain Scale: 0-10 Numeric Is Patient Pain Free? Yes Yes Yes 09/23/24 09:11 - Today's Visit Information Type of service Follow-up Visit (Physician/WAREHOUSE PRICING AND INVENTORY CLERK ) Arrival Mode Wheelchair Transfer Assistance Manual Transfer Assist (Other) Patient Identification Verified (Name & Yes ) Patient Requires Transmission-Based Precautions Vital Signs Temperature (97.8 F-99.1 F) 97.6 F L Temperature Source Temporal Pulse Rate (60-100) 87 Pulse Location Monitor Respiratory Rate (12-18) 18 Respiratory rate source Observation Oxygen Delivery Method Room Air Blood Pressure (90/60-120/80) 108/62 Blood Pressure Mean (mm Hg) 77 Source Monitor Position Sitting Blood Pressure Location Left Arm History Since Last Visit- (Skip if this is Patient's initial visit) Have you changed medications since your No last visit? Any new allergies or adverse reactions No Had a fall/change in ADL's that may No increase risk of falls Signs or symptoms of abuse and/or No neglect since last visit Have you been in the hospital since your No last visit? Has dressing in place as prescribed Yes Has compression in place as prescribed Yes Has offloadiing in place as prescribed N/A Experienced any changes in pain level or No management Left Footwear No Footwear Right Footwear No Footwear Pain Scale: 0-10 Numeric Is Patient Pain Free? Yes - Nurse 1 - General Ulcer Measurement Start: 09/02/24 09:42 Freq: Status: Active Protocol: Activity Type Activity Date Activity User E-sign Co-sign Detail Recorded Client Recorded Date Recorded By Document 09/02/24 09:42 KW [id number] 09/02/24 09:44 KW Document 09/09/24 09:21 DL [id number] 09/09/24 09:31 DL Document 09/16/24 09:52 KW [id number] 09/16/24 10:07 KW Document 09/23/24 09:11 [id number] 09/23/24 09:15 KW 09/02/24 09/09/24 09/16/24 09:42 09:21 09:52 Wound Center Nurse 1 24 lt heel -Current Size (cm) - Length 1.6 1.3 1.2 -Current Size (cm) - Width 2.3 1.8 0.4 -Current Size (cm) - Depth 0.1 0.1 0.1 -Total Square Cm 3.68 2.34 0.48 -Date of Last Picture (Recall this 09/16/24 field) -Exudate Amt Medium Medium Small -Exudate Type Serosanguineous Serosanguineous Serosanguineous -Wound Margin Distinct, Distinct, Distinct, Outline Outline Outline Attached Attached Attached -Granulation Amt Medium (34-66%) Medium (34-66%) Medium (34-66%) -Granulation Quality Bryan Bryan,Red Red -Necrosis Amt Medium (34-66%) Medium (34-66%) Medium (34-66%) -Necrotic Tissue Type Adherent Slough Adherent Slough Adherent Slough -Structure Exposed N/A -Texture (Bren-wound Skin Appearance) Assessed Scarring Assessed,Callus -Moisture (Bren-wound Skin Appearance) Assessed, No Abnormality Assessed,Dry/ Maceration Scaly -Color (Bren-wound Skin Appearance) Assessed No Abnormality Assessed -Temperature (Bren-wound Skin No Abnormality No Abnormality No Abnormality Appearance) (Pt Warm) (Pt Warm) (Pt Warm) -Tenderness on Palpation (Bren-wound No No Skin Appearance) -Ulcer Cleansing Soap and Water Soap and Water Soap and Water -Foul Odor after Cleansing No No No -Anesthetic Used 5% Lidocaine 5% Lidocaine 5% Lidocaine Gel Gel Gel -Wound Comment(s) Right Calf (cm) 36 Right Ankle (cm) 23 Left Calf (cm) 36 Left Ankle (cm) 23 09/23/24 09:11 Wound Center Nurse 1 24 lt heel -Current Size (cm) - Length 0.1 -Current Size (cm) - Width 0.1 -Current Size (cm) - Depth 0.1 -Total Square Cm 0.01 -Date of Last Picture (Recall this field) -Exudate Amt Medium -Exudate Type Serosanguineous -Wound Margin -Granulation Amt -Granulation Quality -Necrosis Amt -Necrotic Tissue Type -Structure Exposed -Texture (Bren-wound Skin Appearance) Assessed -Moisture (Bren-wound Skin Appearance) Assessed -Color (Bren-wound Skin Appearance) Assessed -Temperature (Bren-wound Skin No Abnormality Appearance) (Pt Warm) -Tenderness on Palpation (Bren-wound No Skin Appearance) -Ulcer Cleansing Soap and Water -Foul Odor after Cleansing -Anesthetic Used -Wound Comment(s) WASHED AROUND, LEAVE EPI INTACT Right Calf (cm) 33.6 Right Ankle (cm) 23 Left Calf (cm) 34.6 Left Ankle (cm) 21.9 WC - Nurse 2 - General Ulcer CM Notes Start: 09/02/24 09:42 Freq: Status: Active Protocol: Activity Type Activity Date Activity User E-sign Co-sign Detail Recorded Client Recorded Date Recorded By Document 09/02/24 10:07 [id number] 09/02/24 10:15 Document 09/09/24 10:28 JF [id number] 09/09/24 10:37 JF Document 09/16/24 10:42 JF [id number] 09/16/24 10:47 JF Document 09/23/24 09:28 DS [id number] 09/23/24 09:33 DS 09/02/24 09/09/24 09/16/24 10:07 10:28 10:42 Wound Center Nurse 2 24 lt heel -Time 10:08 10:29 10:42 -Correct Patient Yes Yes Yes -Correct Side, Site, Position Yes Yes Yes -Correct Procedure Yes Yes Yes -Procedure Performed Yes Yes Yes -Type of Procedure Debridement Debridement Debridement -Clinical Debridement Subcutaneous Subcutaneous Subcutaneous -Tissue Removed Subcutaneous Subcutaneous Subcutaneous -Post Debridement (cm) - Length 1.5 1.7 1.6 -Post Debridement (cm) - Width 2.2 2.0 1.6 -Post Debridement (cm) - Depth 0.1 0.1 0.1 -Total Square (Post) (cm) 3.30 3.40 2.56 -Area of Debridement (cm) - Length 1.5 1.7 1.6 -Area of Debridement (cm) - Width 2.2 2.0 1.6 -Total Square (Area) (cm) 3.30 3.40 2.56 -Tunneling No No No -Undermining/Tunneling No No No -Circular Undermining No No No -Wound/Ulcer Outcome Not Healed Not Healed Not Healed -Ulcer Cleansing Rinsed/ Rinsed/ Rinsed/ Irrigated with Irrigated with Irrigated with Saline Saline Saline -Foul Odor after Cleansing No No No -Bioengineered Tissue Yes Yes Yes -Type of Bioengineered Tissue Epifix Epifix 18mm Epifix 18mm Disc Disc -Expiration Date 09/29/28 09/29/28 04/01/29 -Product Lot Number [id number] -Percent Used 100 100 100 -Lot number of Saline Used [id number] -Bleeding Controlled with Pressure Pressure Pressure -Treatment Response Procedure Procedure Procedure Not Tolerated Well Tolerated Well Tolerated Well -Offloading No No No -Debridement - Subq, 1st 20sq cm No No No -Apply Skin Sub - 1st 25 sq cm - Feet 1 1 1 -Epifix Application 1-4 (per sq cm) 4 4 -Epifix 18mm Disc Application 1-4 3 Pain Scale: 0-10 Numeric Is Patient Pain Free? Yes Yes Yes 09/23/24 09:28 Wound Center Nurse 2 24 lt heel -Time 09:28 -Correct Patient Yes -Correct Side, Site, Position Yes -Correct Procedure Yes -Procedure Performed Yes -Type of Procedure Debridement -Clinical Debridement Subcutaneous -Tissue Removed Subcutaneous -Post Debridement (cm) - Length 1.0 -Post Debridement (cm) - Width 1.4 -Post Debridement (cm) - Depth 0.1 -Total Square (Post) (cm) 1.40 -Area of Debridement (cm) - Length 1.0 -Area of Debridement (cm) - Width 1.4 -Total Square (Area) (cm) 1.40 -Tunneling No -Undermining/Tunneling No -Circular Undermining No -Wound/Ulcer Outcome Not Healed -Ulcer Cleansing Rinsed/ Irrigated with Saline -Foul Odor after Cleansing No -Bioengineered Tissue Yes -Type of Bioengineered Tissue Epifix -Expiration Date 04/01/29 -Product Lot Number [id number] -Percent Used 100 -Lot number of Saline Used [id number] -Bleeding Controlled with Pressure -Treatment Response Procedure Tolerated Well -Offloading -Debridement - Subq, 1st 20sq cm No -Apply Skin Sub - 1st 25 sq cm - Feet 1 -Epifix Application 1-4 (per sq cm) 4 -Epifix 18mm Disc Application 1-4 Pain Scale: 0-10 Numeric Is Patient Pain Free? Yes - Nurse 3 - General Ulcer D/C NN Start: 09/02/24 09:42 Freq: Status: Active Protocol: Activity Type Activity Date Activity User E-sign Co-sign Detail Recorded Client Recorded Date Recorded By Document 09/02/24 10:37 MT [id number] 09/02/24 10:46 MT Edit Result 09/02/24 10:37 MT (1) [id number] 09/02/24 14:34 MT Document 09/09/24 11:07 GM [id number] 09/09/24 11:08 GM Document 09/16/24 10:50 KW [id number] 09/16/24 10:51 KW (1) BLE - Multi-Layer Compression Bilat (Qty 2 => 1 applied) 09/02/24 09/09/24 09/16/24 10:37 11:07 10:50 Wound Care Center Nurse 3 24 lt heel -Ulcer Cleansing Not Cleansed -Foul Odor after Cleansing No -Other Dressing abd -Primary Dressing Covered/Secured with Dry Gauze Dry Gauze & Dry Gauze Roll Gauze, Secured with Tape -Other Covering abd pad BLE -Multi-Layered Wrap Application Multi-Layer Multi-Layer Multi-Layer Comp - Bilat ($ Comp - Bilat ($ Comp - Bilat ($ ) ) ) -Stockings No -Multi-Layer Compression Bilat (Qty 1 1 1 applied) Pain Scale: 0-10 Numeric Is Patient Pain Free? Yes Yes Yes - Visit Discharge Discharge Condition Stable Stable Stable Ambulatory Status Ambulatory Wheelchair Wheelchair Transportation Private Auto Medication Reconcilliation completed & No No provided to patient/care provider Clinical Summary of Care Provided Yes Yes Notes: generally weak Assessment/Plan Assessment/Plan (1) Non-pressure chronic ulcer of left heel and midfoot with fat layer exposed: CODE(S): L97.422 - Non-pressure chronic ulcer of left heel and midfoot with fat layer exposed PLAN: Patient was examined and evaluated. All findings were discussed with the patient. All questions were answered to the patient's satisfaction. Excisional debridement down to including subcutaneous tissue with a number 5 mm dermal curette to the left heel done without incident. Predebridement measurement was sanguinous crust postdebridement measurement is 1.0 x 1.4 x 0.1 cm. Epifix 2.0 x 2.0 cm was applied to the left heel full-thickness ulceration with 100% use. 10th application. The graft site was free and clear of any infection. The wound/skin graft substitute was dressed with nonadherent bandage secured in place with Steri-Strips followed by bolster dressing as well as a 3M multilayer compression bandage. Note: We had to move forward with a 2 x 2 cm EpiFix graft due to the unavailability of a 18 mm disc. Rep was aware and agreed to proceed with larger size as well as to continue continuity of care. Follow-up at the wound care center with Dr. Solano in 1 week. (2) Other specified peripheral vascular diseases: CODE(S): I73.89 - Other specified peripheral vascular diseases
--- NOTE | 2024-09-24 09:56 | WC ---
PHOTO 09/23/24 RIGHT 2ND TOE
== END 2024-09-28 23:59 | disposition home or self-care (01) ==
LOC: WC 09:30
PROVIDERS: PCP Family Medicine; Referring Provider Podiatrist Foot & Ankle Surgery; Visit Provider Podiatrist Foot & Ankle Surgery
DX: L97.422 Non-pressure chronic ulcer of left heel and midfoot with fat layer exposed (principal); I73.89 Other specified peripheral vascular diseases; Z99.2 Dependence on renal dialysis; Z96.649 Presence of unspecified artificial hip joint; S90.424A Blister (nonthermal), right lesser toe(s), initial encounter
CPT/HCPCS: 15275; 29581; Q4186

== ENCOUNTER 2024-10-28 09:45 | Outpatient (RCR) | payer MEDICARE, MEDICAID, SELFPAY ==
[2024-09-30 09:09] VITALS: BP 113/68; PULSE 89; RESP 18; TEMP 36.2
--- NOTE | 2024-09-30 12:29 | PN.PCM_ITS ---
History of Present Illness Date of Service: 09/23/24 Chief Complaint: Left heel ulceration History of Wound: A 63-year-old female who presents to the wound care center today for left heel ulceration and bilateral lower extremity edema with multiple leg wounds secondary to previous blisters. In October 2019, patient had rubbing in shoes while shopping which led to a blister that developed into an ulceration. Patient was then seen by Prieto AmezquitaP.Usha. for wound care. Patient then became infected and was admitted to the hospital. Patient was noted to have OM on MRI. Patient wanted to avoid surgery so a snf course of appropriate IV antibiotics was the treatment chosen. Patient was also noted to have hyperglycemia and has worked with hospitalist and PCP to try to get better control. Blood sugar levels remain elevated. Patient also had LEAS obtained in the hospital which suggested patient had the proper blood flow to allow healing. Patient has since finished snf course of antibiotics. Patient has since been seen on a weekly basis in office with progression and regression of wound noted over the weeks. Patient has tried various dressing options including wet to dry and santyl. The most progress was noted with Santyl but patient ran out and was unable to refill due to insurance issues. During which time the wound regressed. She also has an offloading surgical shoe and offloading boot to relieve pressure. Patient care is henceforth being carried out at the wound care center. Patient not currently on any antibiotics. Patient has since began skin graft aplications significant improvement is been noted to her foot overall. Patient has finished epifix graft applications with some very small remaining wound noted to left heel. Patient has new wounds noted to bilateral third digits. The right 3rd digit wound has healed. Her left ankle ulcer remains healed Patient relates that ambulation is getting easier and she is rebuilding her strength slowly. She has not had any worsening of minor remaining heel wound since beginning ambulation again. 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 Her has been helping her change the dressings daily to the left heel. She had been following in the wound care center in 2021 for left heel ulceration but was subsequently lost to follow-up. She cites transportation issues. She presents to the wound care center today for continued care of her left heel ulceration and bilateral lower extremity wounds secondary to edema. Progress of Wound: Stable full-thickness wound left heel Subjective Subjective Patient is a 64-year-old diabetic female presenting to the wound care center today for follow-up evaluation of full-thickness wound to left heel with application of amnion skin graft substitute. Patient is left the dressing clean dry and intact and noticed improvement to the bilateral leg swelling. She is following her treatment course and is doing well. She is following up with dialysis 3 days/week. Patient states that her blood sugar has been fluctuating between 175 to 243 mg/dL. Denies trauma. Denies constitutional symptoms. No other pedal complaints at this time. Objective Data Objective Data Vital Signs: Vital Signs Temp Pulse Resp BP O2 Del Method 97.1 F L 89 18 113/68 Room Air 09/30/24 09:09 09/30/24 09:09 09/30/24 09:09 09/30/24 09:09 09/30/24 09:09 Oxygen Delivery Method Room Air Physical Exam Narrative Vascular: DP and PT pulse are palpable to the bilateral lower extremity. CFT is brisk. Nonpitting edema appreciated bilateral lower extremity. Blanchable erythema to the lesser digits bilateral. Skin temperature great is warm to warm from proximal ankles to distal digits bilateral. Light touch intact. Patient does respond to painful stimuli. Dermatological: Evidence of full-thickness wound to the left heel with amnion skin graft substitute attached. No debridement was done at this time. Wound base shows no signs of infection. Musculoskeletal: No pain to palpation to the full-thickness wound to left heel. No pain with calf pressure. Debridement Note Debridement Note Post-Debridement Measurements and Additional Note: Post-Debridement Measurements/Treatment [facility] Nurse 1 - General Ulcer Assessment Start: 09/30/24 09:04 Freq: Status: Active Protocol: SAMARIA.LOWJESSICAT Activity Type Activity Date Activity User E-sign Co-sign Detail Recorded Client Recorded Date Recorded By Document 09/30/24 09:09 IN [id number] 09/30/24 09:17 IN 09/30/24 09:09 - Today's Visit Information Type of service Follow-up Visit (Physician/SENIOR SYSTEMS ANALYST ) Arrival Mode Wheelchair Accompanied by self Patient Identification Verified (Name & Yes ) Safety Precautions Fall Prevention Vital Signs Temperature (97.8 F-99.1 F) 97.1 F L Temperature Source Temporal Pulse Rate (60-100) 89 Pulse Location Monitor Respiratory Rate (12-18) 18 Respiratory rate source Monitor Oxygen Delivery Method Room Air Blood Pressure (90/60-120/80) 113/68 Blood Pressure Mean (mm Hg) 83 Source Monitor Position Supine Blood Pressure Location Right Arm History Since Last Visit- (Skip if this is Patient's initial visit) Has dressing in place as prescribed Yes Has compression in place as prescribed Yes Has offloadiing in place as prescribed Yes Experienced any changes in pain level or Yes management Left Footwear Regular Shoe Right Footwear Regular Shoe Pain Scale: 0-10 Numeric Is Patient Pain Free? Yes WC - Nurse 1 - General Ulcer Measurement Start: 09/30/24 09:04 Freq: Status: Active Protocol: Activity Type Activity Date Activity User E-sign Co-sign Detail Recorded Client Recorded Date Recorded By Document 09/30/24 09:09 IN [id number] 09/30/24 09:17 IN 09/30/24 09:09 Wound Center Nurse 1 #25 right lateral foot -Current Size (cm) - Length 0.1 -Current Size (cm) - Width 0.1 -Current Size (cm) - Depth 0.1 -Total Square Cm 0.01 -Date of Last Picture (Recall this 09/30/24 field) -Photo Taken Yes -Epithelialization Large 67-100% -Tunneling No -Undermining/Tunneling No -Circular Undermining No -Exudate Amt None Present -Wound Margin Flat & Intact -Granulation Amt None Present (0 %) -Necrosis Amt None Present (0 %) -Texture (Bren-wound Skin Appearance) Assessed,Callus -Moisture (Bren-wound Skin Appearance) Assessed -Color (Bren-wound Skin Appearance) Assessed -Temperature (Bren-wound Skin No Abnormality Appearance) (Pt Warm) -Tenderness on Palpation (Bren-wound Yes Skin Appearance) -Ulcer Cleansing Rinsed/ Irrigated with Saline -Foul Odor after Cleansing No -Anesthetic Used 5% Lidocaine Gel 24 lt heel -Current Size (cm) - Length 0.1 -Current Size (cm) - Width 0.1 -Current Size (cm) - Depth 0.1 -Total Square Cm 0.01 -Date of Last Picture (Recall this 09/30/24 field) -Photo Taken Yes -Tunneling No -Undermining/Tunneling No -Circular Undermining No -Exudate Amt Medium -Exudate Type Serous -Wound Margin Flat & Intact -Granulation Amt Large (67-100%) -Granulation Quality [place],Red -Slough/Fibrin No -Necrosis Amt Medium (34-66%) -Necrotic Tissue Type Adherent Slough -Texture (Bren-wound Skin Appearance) Assessed -Moisture (Bren-wound Skin Appearance) Assessed -Color (Bren-wound Skin Appearance) Assessed -Temperature (Bren-wound Skin No Abnormality Appearance) (Pt Warm) -Tenderness on Palpation (Bren-wound No Skin Appearance) -Foul Odor after Cleansing No -Anesthetic Used 5% Lidocaine Gel Right Calf (cm) 34.5 Right Ankle (cm) 23 Left Calf (cm) 34.5 Left Ankle (cm) 27 - Nurse 2 - General Ulcer CM Notes Start: 09/30/24 09:04 Freq: Status: Active Protocol: Activity Type Activity Date Activity User E-sign Co-sign Detail Recorded Client Recorded Date Recorded By Document 09/30/24 09:54 JAUN [id number] 09/30/24 09:58 JAUN 09/30/24 09:54 Wound Center Nurse 2 #25 right lateral foot -Correct Patient Yes -Correct Side, Site, Position No -Correct Procedure No -Procedure Performed No -Wound/Ulcer Outcome Healed- Epithelialized #26 Left Hallux -Correct Patient Yes -Correct Side, Site, Position No -Correct Procedure No -Procedure Performed No -Wound/Ulcer Outcome Not Healed 24 lt heel -Correct Patient Yes -Correct Side, Site, Position No -Correct Procedure No -Procedure Performed No -Wound/Ulcer Outcome Not Healed Pain Scale: 0-10 Numeric Is Patient Pain Free? Yes - Nurse 3 - General Ulcer D/C NN Start: 09/30/24 09:04 Freq: Status: Active Protocol: Activity Type Activity Date Activity User E-sign Co-sign Detail Recorded Client Recorded Date Recorded By Document 09/30/24 10:27 MANISHA [id number] 09/30/24 10:28 MANISHA 09/30/24 10:27 Wound Care Center Nurse 3 #26 Left Hallux -Primary Dressing Covered/Secured with Dry Gauze 24 lt heel -Primary Dressing Applied AMD Dressing 4x4 -Primary Dressing Covered/Secured with Dry Gauze & Roll Gauze, Secured with Tape -AMD Dressing 4x4 1 BLE -Multi-Layered Wrap Application Multi-Layer Comp - Bilat ($ ) -Multi-Layer Compression Bilat (Qty 2 applied) Pain Scale: 0-10 Numeric Is Patient Pain Free? Yes WC - Visit Discharge Discharge Condition Stable Ambulatory Status Wheelchair Medication Reconcilliation completed & No provided to patient/care provider Clinical Summary of Care Provided Yes Assessment/Plan Assessment/Plan (1) Non-pressure chronic ulcer of left heel and midfoot with fat layer exposed: CODE(S): L97.422 - Non-pressure chronic ulcer of left heel and midfoot with fat layer exposed PLAN: Patient was examined and evaluated. All findings were discussed with the patient. All questions were answered to the patient's satisfaction. Patient's left heel shows evidence of an intact skin graft that will remain intact for an additional week. No debridement was done at this time. Adaptic was placed over the skin graft followed by dry sterile dressing and bilateral 3M compression wraps were donned to the bilateral lower extremity. 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 Patient will follow-up with nursing visit for compression wrap change. Patient was educated continue to follow strict blood sugar control and offload her bilateral lower extremity. Follow-up at the wound care center with Dr. Solano in 2 week. (2) Other specified peripheral vascular diseases: CODE(S): I73.89 - Other specified peripheral vascular diseases
--- NOTE | 2024-09-30 15:27 | WC ---
PHOTO 09/30/24 LEFT HEEL
--- NOTE | 2024-09-30 15:29 | WC ---
PHOTO 09/30/24 LEFT HEEL
[2024-10-14 10:21] VITALS: BP 108/65; PULSE 87; RESP 16; TEMP 36.1
--- NOTE | 2024-10-14 12:15 | PN.PCM_ITS ---
History of Present Illness Date of Service: 10/14/24 Chief Complaint: Left heel ulceration History of Wound: A 63-year-old female who presents to the wound care center today for left heel ulceration and bilateral lower extremity edema with multiple leg wounds secondary to previous blisters. In October 2019, patient had rubbing in shoes while shopping which led to a blister that developed into an ulceration. Patient was then seen by Prieto AmezquitaP.Usha. for wound care. Patient then became infected and was admitted to the hospital. Patient was noted to have OM on MRI. Patient wanted to avoid surgery so a nursing home course of appropriate IV antibiotics was the treatment chosen. Patient was also noted to have hyperglycemia and has worked with hospitalist and PCP to try to get better control. Blood sugar levels remain elevated. Patient also had LEAS obtained in the hospital which suggested patient had the proper blood flow to allow healing. Patient has since finished nursing home course of antibiotics. Patient has since been seen on a weekly basis in office with progression and regression of wound noted over the weeks. Patient has tried various dressing options including wet to dry and santyl. The most progress was noted with Santyl but patient ran out and was unable to refill due to insurance issues. During which time the wound regressed. She also has an offloading surgical shoe and offloading boot to relieve pressure. Patient care is henceforth being carried out at the wound care center. Patient not currently on any antibiotics. Patient has since began skin graft aplications significant improvement is been noted to her foot overall. Patient has finished epifix graft applications with some very small remaining wound noted to left heel. Patient has new wounds noted to bilateral third digits. The right 3rd digit wound has healed. Her left ankle ulcer remains healed Patient relates that ambulation is getting easier and she is rebuilding her strength slowly. She has not had any worsening of minor remaining heel wound since beginning ambulation again. 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 Her has been helping her change the dressings daily to the left heel. She had been following in the wound care center in 2021 for left heel ulceration but was subsequently lost to follow-up. She cites transportation issues. She presents to the wound care center today for continued care of her left heel ulceration and bilateral lower extremity wounds secondary to edema. Progress of Wound: Stable full-thickness wound left heel Subjective Subjective Patient is a 64-year-old Diabetic female presenting to wound care center today for follow-up evaluation of full-thickness wound to the left heel. Patient has left the past amniotic skin graft clean dry and intact. She has been compliant with multilayer compression bandages and has been getting them changed by home health care. She is following her dialysis schedule. She is offloading as we discussed 2 weeks ago. She is doing well. Denies trauma. Denies constitutional symptoms. No other pedal complaints at this time. Objective Data Objective Data Vital Signs: Vital Signs Temp Pulse Resp BP O2 Del Method 97 F L 87 16 108/65 Room Air 10/14/24 10:21 10/14/24 10:21 10/14/24 10:21 10/14/24 10:21 09/30/24 09:09 Oxygen Delivery Method Room Air Physical Exam Narrative Vascular: DP and PT pulse are palpable to the bilateral lower extremity. CFT is brisk. Nonpitting edema appreciated bilateral lower extremity. No erythema skin temperature great is warm to warm from proximal ankles to distal digits bilateral. Light touch intact. Patient does respond to painful stimuli. Dermatological: After removal of the amniotic skin graft substitute there is evidence of full-thickness wound measuring 0.1 x 0.1 x 0.1 cm. Wound base is granular with no sign of infection. Excisional debridement down to including subcutaneous tissue with a number 3 mm dermal curette to the left heel done without incident. Predebridement measurement was eschar. Postdebridement measurement 0.1 x 0.1 x 0.1 cm. Musculoskeletal: No pain to palpation to the full-thickness wound to left heel. No pain with calf pressure. Debridement Note Debridement Note Debridement Free Text: Excisional debridement down to including subcutaneous tissue with a number 3 mm dermal curette to the left heel done without incident. Predebridement measurement was eschar. Postdebridement measurement 0.1 x 0.1 x 0.1 cm. Post-Debridement Measurements and Additional Note: Post-Debridement Measurements/Treatment A[facility] - Nurse 1 - General Ulcer Assessment Start: 09/30/24 09:04 Freq: Status: Active Protocol: MOOK Activity Type Activity Date Activity User E-sign Co-sign Detail Recorded Client Recorded Date Recorded By Document 09/30/24 09:09 PA [id number] 09/30/24 09:17 PA Document 10/14/24 10:21 [id number] 10/14/24 10:25 09/30/24 10/14/24 09:09 10:21 - Today's Visit Information Type of service Follow-up Visit Follow-up Visit (Physician/ROSS FURNACE OPERATOR (Physician/ROSS FURNACE OPERATOR ) ) Arrival Mode Wheelchair Wheelchair Transfer Assistance Manual Transfer Assist (Other) 1 Accompanied by self Patient Identification Verified (Name & Yes Yes ) Patient Requires Transmission-Based No Precautions Safety Precautions Fall Prevention Vital Signs Temperature (97.8 F-99.1 F) 97.1 F L 97 F L Temperature Source Temporal Temporal Pulse Rate (60-100) 89 87 Pulse Location Monitor Monitor Respiratory Rate (12-18) 18 16 Respiratory rate source Monitor Observation Oxygen Delivery Method Room Air Blood Pressure (90/60-120/80) 113/68 108/65 Blood Pressure Mean (mm Hg) 83 79 Source Monitor Monitor Position Supine Sitting Blood Pressure Location Right Arm Right Arm History Since Last Visit- (Skip if this is Patient's initial visit) Have you changed medications since your No last visit? Any new allergies or adverse reactions No Had a fall/change in ADL's that may No increase risk of falls Signs or symptoms of abuse and/or No neglect since last visit Have you been in the hospital since your No last visit? Has dressing in place as prescribed Yes Yes Has compression in place as prescribed Yes Yes Has offloadiing in place as prescribed Yes N/A Experienced any changes in pain level or Yes No management Left Footwear Regular Shoe Right Footwear Regular Shoe Pain Scale: 0-10 Numeric Is Patient Pain Free? Yes Yes - Nurse 1 - General Ulcer Measurement Start: 09/30/24 09:04 Freq: Status: Active Protocol: Activity Type Activity Date Activity User E-sign Co-sign Detail Recorded Client Recorded Date Recorded By Document 09/30/24 09:09 PA [id number] 09/30/24 09:17 PA Document 10/14/24 10:21 [id number] 10/14/24 10:25 09/30/24 10/14/24 09:09 10:21 Wound Center Nurse 1 #25 right lateral foot -Current Size (cm) - Length 0.1 -Current Size (cm) - Width 0.1 -Current Size (cm) - Depth 0.1 -Total Square Cm 0.01 -Date of Last Picture (Recall this 09/30/24 field) -Photo Taken Yes -Epithelialization Large 67-100% -Tunneling No -Undermining/Tunneling No -Circular Undermining No -Exudate Amt None Present -Wound Margin Flat & Intact -Granulation Amt None Present (0 %) -Necrosis Amt None Present (0 %) -Texture (Bren-wound Skin Appearance) Assessed,Callus -Moisture (Bren-wound Skin Appearance) Assessed -Color (Bren-wound Skin Appearance) Assessed -Temperature (Bren-wound Skin No Abnormality Appearance) (Pt Warm) -Tenderness on Palpation (Bren-wound Yes Skin Appearance) -Ulcer Cleansing Rinsed/ Irrigated with Saline -Foul Odor after Cleansing No -Anesthetic Used 5% Lidocaine Gel 24 lt heel -Current Size (cm) - Length 0.1 0.1 -Current Size (cm) - Width 0.1 0.1 -Current Size (cm) - Depth 0.1 0.1 -Total Square Cm 0.01 0.01 -Date of Last Picture (Recall this 09/30/24 field) -Photo Taken Yes -Tunneling No -Undermining/Tunneling No -Circular Undermining No -Exudate Amt Medium None Present -Exudate Type Serous -Wound Margin Flat & Intact -Granulation Amt Large (67-100%) -Granulation Quality [place],Red -Slough/Fibrin No -Necrosis Amt Medium (34-66%) -Necrotic Tissue Type Adherent Slough -Texture (Bren-wound Skin Appearance) Assessed -Moisture (Bren-wound Skin Appearance) Assessed -Color (Bren-wound Skin Appearance) Assessed -Temperature (Bren-wound Skin No Abnormality Appearance) (Pt Warm) -Tenderness on Palpation (Bren-wound No Skin Appearance) -Foul Odor after Cleansing No -Anesthetic Used 5% Lidocaine Gel Right Calf (cm) 34.5 33.5 Right Ankle (cm) 23 23 Left Calf (cm) 34.5 34 Left Ankle (cm) 27 22.5 WC - Nurse 2 - General Ulcer CM Notes Start: 09/30/24 09:04 Freq: Status: Active Protocol: Activity Type Activity Date Activity User E-sign Co-sign Detail Recorded Client Recorded Date Recorded By Document 09/30/24 09:54 JAUN [id number] 09/30/24 09:58 JF Document 10/14/24 10:39 [id number] 10/14/24 10:42 JF 09/30/24 10/14/24 09:54 10:39 Wound Center Nurse 2 #26 Left Hallux -Correct Patient Yes -Correct Side, Site, Position No -Correct Procedure No -Procedure Performed No -Wound/Ulcer Outcome Not Healed #25 right lateral foot -Correct Patient Yes -Correct Side, Site, Position No -Correct Procedure No -Procedure Performed No -Wound/Ulcer Outcome Healed- Epithelialized 24 lt heel -Time 10:40 -Correct Patient Yes Yes -Correct Side, Site, Position No Yes -Correct Procedure No Yes -Procedure Performed No Yes -Type of Procedure Debridement -Clinical Debridement Subcutaneous -Tissue Removed Subcutaneous -Post Debridement (cm) - Length 0.1 -Post Debridement (cm) - Width 0.1 -Post Debridement (cm) - Depth 0.1 -Total Square (Post) (cm) 0.01 -Area of Debridement (cm) - Length 0.1 -Area of Debridement (cm) - Width 0.1 -Total Square (Area) (cm) 0.01 -Tunneling No -Undermining/Tunneling No -Circular Undermining No -Wound/Ulcer Outcome Not Healed Not Healed -Ulcer Cleansing Rinsed/ Irrigated with Saline -Foul Odor after Cleansing No -Bioengineered Tissue No -Bleeding Controlled with Pressure -Treatment Response Procedure Tolerated Well -Offloading No -Debridement - Subq, 1st 20sq cm Yes Pain Scale: 0-10 Numeric Is Patient Pain Free? Yes Yes WC - Nurse 3 - General Ulcer D/C NN Start: 09/30/24 09:04 Freq: Status: Active Protocol: Activity Type Activity Date Activity User E-sign Co-sign Detail Recorded Client Recorded Date Recorded By Document 09/30/24 10:27 KW [id number] 09/30/24 10:28 KW Document 10/14/24 11:03 ML [id number] 10/14/24 11:05 ML 09/30/24 10/14/24 10:27 11:03 Wound Care Center Nurse 3 #26 Left Hallux -Primary Dressing Covered/Secured with Dry Gauze 24 lt heel -Ulcer Cleansing Rinsed/ Irrigated with Saline -Primary Dressing Applied AMD Dressing 4x4 -Other Dressing ANT. OINT. ADAPTIC -Primary Dressing Covered/Secured with Dry Gauze & Dry Gauze Roll Gauze, Secured with Tape -AMD Dressing 4x4 1 BLE -Multi-Layered Wrap Application Multi-Layer Multi-Layer Comp - Bilat ($ Comp - Bilat ($ ) ) -Multi-Layer Compression Bilat (Qty 2 1 applied) Pain Scale: 0-10 Numeric Is Patient Pain Free? Yes Yes WC - Visit Discharge Discharge Condition Stable Ambulatory Status Wheelchair Medication Reconcilliation completed & No provided to patient/care provider Clinical Summary of Care Provided Yes Assessment/Plan Assessment/Plan (1) Non-pressure chronic ulcer of left heel and midfoot with fat layer exposed: CODE(S): L97.422 - Non-pressure chronic ulcer of left heel and midfoot with fat layer exposed PLAN: Patient was examined and evaluated. All findings were discussed with the patient. All questions were answered to the patient's satisfaction. Excisional debridement down to including subcutaneous tissue with a number 3 mm dermal curette to the left heel done without incident. Predebridement measurement was eschar. Postdebridement measurement 0.1 x 0.1 x 0.1 cm. Of the left heel was wiped plain and patted dry. Triple antibiotic and Adaptic was applied followed by multilayer compression bandage to the bilateral lower extremity. Patient will continue to rest and elevate as discussed. She will continue strict blood sugar control. She will follow-up with her dialysis as scheduled. Encouraged offloading whenever at rest. Encourage ambulation when able. Follow-up at the wound care center with Dr. Solano in 2 week. (2) Other specified peripheral vascular diseases: CODE(S): I73.89 - Other specified peripheral vascular diseases
[2024-10-28 09:15] VITALS: BP 124/68; PULSE 88; RESP 14; TEMP 36
--- NOTE | 2024-10-28 13:04 | PCM.WC.PN ---
History of Present Illness Date of Service: 10/28/24 Chief Complaint: Left heel ulceration History of Wound: A 63-year-old female who presents to the wound care center today for left heel ulceration and bilateral lower extremity edema with multiple leg wounds secondary to previous blisters. In October 2019, patient had rubbing in shoes while shopping which led to a blister that developed into an ulceration. Patient was then seen by Prieto AmezquitaP.Usha. for wound care. Patient then became infected and was admitted to the hospital. Patient was noted to have OM on MRI. Patient wanted to avoid surgery so a intermediate course of appropriate IV antibiotics was the treatment chosen. Patient was also noted to have hyperglycemia and has worked with hospitalist and PCP to try to get better control. Blood sugar levels remain elevated. Patient also had LEAS obtained in the hospital which suggested patient had the proper blood flow to allow healing. Patient has since finished intermediate course of antibiotics. Patient has since been seen on a weekly basis in office with progression and regression of wound noted over the weeks. Patient has tried various dressing options including wet to dry and santyl. The most progress was noted with Santyl but patient ran out and was unable to refill due to insurance issues. During which time the wound regressed. She also has an offloading surgical shoe and offloading boot to relieve pressure. Patient care is henceforth being carried out at the wound care center. Patient not currently on any antibiotics. Patient has since began skin graft aplications significant improvement is been noted to her foot overall. Patient has finished epifix graft applications with some very small remaining wound noted to left heel. Patient has new wounds noted to bilateral third digits. The right 3rd digit wound has healed. Her left ankle ulcer remains healed Patient relates that ambulation is getting easier and she is rebuilding her strength slowly. She has not had any worsening of minor remaining heel wound since beginning ambulation again. 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 Her has been helping her change the dressings daily to the left heel. She had been following in the wound care center in 2021 for left heel ulceration but was subsequently lost to follow-up. She cites transportation issues. She presents to the wound care center today for continued care of her left heel ulceration and bilateral lower extremity wounds secondary to edema. Progress of Wound: Stable full-thickness wound left heel Subjective Subjective Patient is a 64-year-old diabetic female presented wound care center today for follow-up evaluation of full-thickness wound to the heel area of the left lower extremity. Patient has been compliant with dressing changes. She is doing her dialysis as scheduled. She denies any pain to the left lower extremity. She is offloading the bilateral lower extremities as discussed. Denies trauma. Denies constitutional symptoms. No other pedal complaints at this time. Objective Data Objective Data Vital Signs: Vital Signs Temp Pulse Resp BP O2 Del Method 96.8 F L 88 14 124/68 H Room Air 10/28/24 09:15 10/28/24 09:15 10/28/24 09:15 10/28/24 09:15 09/30/24 09:09 Oxygen Delivery Method Room Air Physical Exam Narrative Vascular: DP and PT pulse are palpable to the bilateral lower extremity. CFT is brisk. Nonpitting edema appreciated bilateral lower extremity. No erythema skin temperature great is warm to warm from proximal ankles to distal digits bilateral. Light touch intact. Patient does respond to painful stimuli. Dermatological: evidence of full-thickness wound to the left heel measuring 0.5 x 0.4 x 0.1 cm. Wound base is granular nature with no sign of infection. Excisional debridement down to including subcutaneous tissue with a number 3 mm dermal curette to the left heel done without incident.. Right measurement was callus. Postdebridement measurement was 0.5 x 0.4 x 0.1 cm. Musculoskeletal: No pain to palpation to the full-thickness wound to left heel. No pain with calf pressure. Debridement Note Debridement Note Debridement Free Text: Excisional debridement down to including subcutaneous tissue with a number 3 mm dermal curette to the left heel done without incident.. Right measurement was callus. Postdebridement measurement was 0.5 x 0.4 x 0.1 cm. Post-Debridement Measurements and Additional Note: Post-Debridement Measurements/Treatment WC - Nurse 1 - General Ulcer Assessment Start: 09/30/24 09:04 Freq: Status: Active Protocol: [email or web address].LOWEXT Activity Type Activity Date Activity User E-sign Co-sign Detail Recorded Client Recorded Date Recorded By Document 09/30/24 09:09 IN [id number] 09/30/24 09:17 MT Document 10/14/24 10:21 CP [id number] 10/14/24 10:25 CP Document 10/28/24 09:15 ML [id number] 10/28/24 09:16 ML 09/30/24 10/14/24 10/28/24 09:09 10:21 09:15 - Today's Visit Information Type of service Follow-up Visit Follow-up Visit Follow-up Visit (Physician/STONEWORKING SANDER (Physician/STONEWORKING SANDER (Physician/STONEWORKING SANDER ) ) ) Arrival Mode Wheelchair Wheelchair Wheelchair Transfer Assistance Manual None Transfer Assist (Other) 1 Accompanied by self Patient Identification Verified (Name & Yes Yes Yes ) Patient Requires Transmission-Based No No Precautions Safety Precautions Fall Prevention Vital Signs Temperature (97.8 F-99.1 F) 97.1 F L 97 F L 96.8 F L Temperature Source Temporal Temporal Temporal Pulse Rate (60-100) 89 87 88 Pulse Location Monitor Monitor Monitor Respiratory Rate (12-18) 18 16 14 Respiratory rate source Monitor Observation Observation Oxygen Delivery Method Room Air Blood Pressure (90/60-120/80) 113/68 108/65 124/68 H Blood Pressure Mean (mm Hg) 83 79 86 Source Monitor Monitor Monitor Position Supine Sitting Sitting Blood Pressure Location Right Arm Right Arm Right Arm History Since Last Visit- (Skip if this is Patient's initial visit) Have you changed medications since your No No last visit? Any new allergies or adverse reactions No No Had a fall/change in ADL's that may No No increase risk of falls Signs or symptoms of abuse and/or No No neglect since last visit Have you been in the hospital since your No No last visit? Has dressing in place as prescribed Yes Yes Yes Has compression in place as prescribed Yes Yes N/A Has offloadiing in place as prescribed Yes N/A N/A Experienced any changes in pain level or Yes No No management Left Footwear Regular Shoe Right Footwear Regular Shoe Pain Scale: 0-10 Numeric Is Patient Pain Free? Yes Yes Yes - Nurse 1 - General Ulcer Measurement Start: 09/30/24 09:04 Freq: Status: Active Protocol: Activity Type Activity Date Activity User E-sign Co-sign Detail Recorded Client Recorded Date Recorded By Document 09/30/24 09:09 MT [id number] 09/30/24 09:17 IN Document 10/14/24 10:21 CP [id number] 10/14/24 10:25 CP Document 10/28/24 09:15 ML [id number] 10/28/24 09:16 ML 09/30/24 10/14/24 10/28/24 09:09 10:21 09:15 Wound Center Nurse 1 #25 right lateral foot -Current Size (cm) - Length 0.1 -Current Size (cm) - Width 0.1 -Current Size (cm) - Depth 0.1 -Total Square Cm 0.01 -Date of Last Picture (Recall this 09/30/24 field) -Photo Taken Yes -Epithelialization Large 67-100% -Tunneling No -Undermining/Tunneling No -Circular Undermining No -Exudate Amt None Present -Wound Margin Flat & Intact -Granulation Amt None Present (0 %) -Necrosis Amt None Present (0 %) -Texture (Bren-wound Skin Appearance) Assessed,Callus -Moisture (Bren-wound Skin Appearance) Assessed -Color (Bren-wound Skin Appearance) Assessed -Temperature (Bren-wound Skin No Abnormality Appearance) (Pt Warm) -Tenderness on Palpation (Bren-wound Yes Skin Appearance) -Ulcer Cleansing Rinsed/ Irrigated with Saline -Foul Odor after Cleansing No -Anesthetic Used 5% Lidocaine Gel 24 lt heel -Current Size (cm) - Length 0.1 0.1 0.1 -Current Size (cm) - Width 0.1 0.1 0.1 -Current Size (cm) - Depth 0.1 0.1 0.1 -Total Square Cm 0.01 0.01 0.01 -Date of Last Picture (Recall this 09/30/24 field) -Photo Taken Yes -Tunneling No -Undermining/Tunneling No -Circular Undermining No -Exudate Amt Medium None Present None Present -Exudate Type Serous -Wound Margin Flat & Intact -Granulation Amt Large (67-100%) None Present (0 %) -Granulation Quality Udall,Red -Slough/Fibrin No No -Necrosis Amt Medium (34-66%) None Present (0 %) -Necrotic Tissue Type Adherent Slough -Texture (Bren-wound Skin Appearance) Assessed Assessed -Moisture (Bren-wound Skin Appearance) Assessed Assessed -Color (Bren-wound Skin Appearance) Assessed Assessed -Temperature (Bren-wound Skin No Abnormality No Abnormality Appearance) (Pt Warm) (Pt Warm) -Tenderness on Palpation (Bren-wound No No Skin Appearance) -Ulcer Cleansing Soap and Water -Foul Odor after Cleansing No No -Anesthetic Used 5% Lidocaine Gel Right Calf (cm) 34.5 33.5 Right Ankle (cm) 23 23 Left Calf (cm) 34.5 34 Left Ankle (cm) 27 22.5 WC - Nurse 2 - General Ulcer CM Notes Start: 09/30/24 09:04 Freq: Status: Active Protocol: Activity Type Activity Date Activity User E-sign Co-sign Detail Recorded Client Recorded Date Recorded By Document 09/30/24 09:54 [id number] 09/30/24 09:58 Document 10/14/24 10:39 [id number] 10/14/24 10:42 Document 10/28/24 09:43 [id number] 10/28/24 09:45 09/30/24 10/14/24 10/28/24 09:54 10:39 09:43 Wound Center Nurse 2 #26 Left Hallux -Correct Patient Yes -Correct Side, Site, Position No -Correct Procedure No -Procedure Performed No -Wound/Ulcer Outcome Not Healed #25 right lateral foot -Correct Patient Yes -Correct Side, Site, Position No -Correct Procedure No -Procedure Performed No -Wound/Ulcer Outcome Healed- Epithelialized 24 lt heel -Time 10:40 09:43 -Correct Patient Yes Yes Yes -Correct Side, Site, Position No Yes Yes -Correct Procedure No Yes Yes -Procedure Performed No Yes Yes -Type of Procedure Debridement Debridement -Clinical Debridement Subcutaneous Subcutaneous -Tissue Removed Subcutaneous Subcutaneous -Post Debridement (cm) - Length 0.1 0.5 -Post Debridement (cm) - Width 0.1 0.4 -Post Debridement (cm) - Depth 0.1 0.1 -Total Square (Post) (cm) 0.01 0.20 -Area of Debridement (cm) - Length 0.1 0.5 -Area of Debridement (cm) - Width 0.1 0.4 -Total Square (Area) (cm) 0.01 0.20 -Tunneling No No -Undermining/Tunneling No No -Circular Undermining No No -Wound/Ulcer Outcome Not Healed Not Healed Not Healed -Ulcer Cleansing Rinsed/ Rinsed/ Irrigated with Irrigated with Saline Saline -Foul Odor after Cleansing No No -Bioengineered Tissue No No -Bleeding Controlled with Pressure Pressure -Treatment Response Procedure Procedure Tolerated Well Tolerated Well -Offloading No No -Debridement - Subq, 1st 20sq cm Yes Yes Pain Scale: 0-10 Numeric Is Patient Pain Free? Yes Yes Yes - Nurse 3 - General Ulcer D/C NN Start: 09/30/24 09:04 Freq: Status: Active Protocol: Activity Type Activity Date Activity User E-sign Co-sign Detail Recorded Client Recorded Date Recorded By Document 09/30/24 10:27 KW [id number] 09/30/24 10:28 KW Edit Result 09/30/24 10:27 KW (1) [id number] 10/15/24 14:28 DS Document 10/14/24 11:03 ML [id number] 10/14/24 11:05 ML Document 10/28/24 10:01 KW [id number] 10/28/24 10:01 KW (1) BLE - Multi-Layer Compression Bilat (Qty 2 => 1 applied) 09/30/24 10/14/24 10/28/24 10:27 11:03 10:01 Wound Care Center Nurse 3 #26 Left Hallux -Primary Dressing Covered/Secured with Dry Gauze 24 lt heel -Ulcer Cleansing Rinsed/ Irrigated with Saline -Primary Dressing Applied AMD Dressing 4x4 -Other Dressing ANT. OINT. ADAPTIC -Primary Dressing Covered/Secured with Dry Gauze & Dry Gauze Dry Gauze & Roll Gauze, Roll Gauze, Secured with Secured with Tape Tape -AMD Dressing 4x4 1 RLE -Multi-Layered Wrap Application Multi-Layer Comp - Right ($ ) -Multi-Layer Compression Right (Qty 1 applied) BLE -Multi-Layered Wrap Application Multi-Layer Multi-Layer Comp - Bilat ($ Comp - Bilat ($ ) ) -Multi-Layer Compression Bilat (Qty 1 1 applied) Pain Scale: 0-10 Numeric Is Patient Pain Free? Yes Yes Yes - Visit Discharge Discharge Condition Stable Stable Ambulatory Status Wheelchair Ambulatory Transportation Private Auto Medication Reconcilliation completed & No No provided to patient/care provider Clinical Summary of Care Provided Yes Yes Assessment/Plan Assessment/Plan (1) Non-pressure chronic ulcer of left heel and midfoot with fat layer exposed: CODE(S): L97.422 - Non-pressure chronic ulcer of left heel and midfoot with fat layer exposed PLAN: Patient was examined and evaluated. All findings were discussed with the patient. All questions were answered to the patient satisfaction. Excisional debridement down to including subcutaneous tissue with a number 3 mm dermal curette to the left heel done without incident.. Right measurement was callus. Postdebridement measurement was 0.5 x 0.4 x 0.1 cm. The areas were cleaned and patted dry. Moist Samantha, dry sterile dressing and multilayer compressive wrap was donned to left lower extremity. Patient will continue dressing changes as discussed. She will continue her dialysis as scheduled. No plan for surgical intervention at this time. Patient will follow-up in 2 weeks (2) Other specified peripheral vascular diseases: CODE(S): I73.89 - Other specified peripheral vascular diseases
--- NOTE | 2024-10-29 09:30 | WC ---
PHOTO-LEFT HEEL 10/28/24
== END 2024-10-29 23:59 | disposition home or self-care (01) ==
LOC: WC 09:45
PROVIDERS: PCP Family Medicine; Referring Provider Podiatrist Foot & Ankle Surgery; Visit Provider Podiatrist Foot & Ankle Surgery
DX: E11.622 Type 2 diabetes mellitus with other skin ulcer (principal); L97.422 Non-pressure chronic ulcer of left heel and midfoot with fat layer exposed; E11.51 Type 2 diabetes mellitus with diabetic peripheral angiopathy without gangrene; Z96.649 Presence of unspecified artificial hip joint
CPT/HCPCS: 11042; 29581; 99213; G0463

== ENCOUNTER 2024-11-18 09:15 | Outpatient (RCR) | payer MEDICARE, MEDICAID, SELFPAY ==
[2024-11-11 09:29] VITALS: BP 136/78; PULSE 83; RESP 16; TEMP 36.6
--- NOTE | 2024-11-11 10:11 | PCM.WC.PN ---
History of Present Illness Date of Service: 11/11/24 Chief Complaint: Left heel ulceration History of Wound: A 63-year-old female who presents to the wound care center today for left heel ulceration and bilateral lower extremity edema with multiple leg wounds secondary to previous blisters. In October 2019, patient had rubbing in shoes while shopping which led to a blister that developed into an ulceration. Patient was then seen by Prieto AmezquitaP.Usha. for wound care. Patient then became infected and was admitted to the hospital. Patient was noted to have OM on MRI. Patient wanted to avoid surgery so a alf course of appropriate IV antibiotics was the treatment chosen. Patient was also noted to have hyperglycemia and has worked with hospitalist and PCP to try to get better control. Blood sugar levels remain elevated. Patient also had LEAS obtained in the hospital which suggested patient had the proper blood flow to allow healing. Patient has since finished alf course of antibiotics. Patient has since been seen on a weekly basis in office with progression and regression of wound noted over the weeks. Patient has tried various dressing options including wet to dry and santyl. The most progress was noted with Santyl but patient ran out and was unable to refill due to insurance issues. During which time the wound regressed. She also has an offloading surgical shoe and offloading boot to relieve pressure. Patient care is henceforth being carried out at the wound care center. Patient not currently on any antibiotics. Patient has since began skin graft aplications significant improvement is been noted to her foot overall. Patient has finished epifix graft applications with some very small remaining wound noted to left heel. Patient has new wounds noted to bilateral third digits. The right 3rd digit wound has healed. Her left ankle ulcer remains healed Patient relates that ambulation is getting easier and she is rebuilding her strength slowly. She has not had any worsening of minor remaining heel wound since beginning ambulation again. 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 Her has been helping her change the dressings daily to the left heel. She had been following in the wound care center in 2021 for left heel ulceration but was subsequently lost to follow-up. She cites transportation issues. She presents to the wound care center today for continued care of her left heel ulceration and bilateral lower extremity wounds secondary to edema. Progress of Wound: Healed left heel wound. Subjective Subjective Patient is a 64-year-old diabetic female on dialysis 3 times per week presenting to the wound care center for follow-up evaluation of full-thickness wound to the left heel. The patient states that the wound is now healed. She is getting dressing changes by home health care. She is resting and elevating as discussed. She is following her dialysis treatment plan. Her blood sugars well-controlled. Denies any trauma. Denies constitutional symptoms. No other pedal complaints at this time. Objective Data Objective Data Vital Signs: Vital Signs Temp Pulse Resp BP O2 Del Method 97.8 F 83 16 136/78 H Room Air 11/11/24 09:29 11/11/24 09:29 11/11/24 09:29 11/11/24 09:29 11/11/24 09:29 Oxygen Delivery Method Room Air Physical Exam Narrative Vascular: DP and PT pulse are palpable to the bilateral lower extremity. CFT is brisk. Nonpitting edema appreciated bilateral lower extremity. No erythema skin temperature great is warm to warm from proximal ankles to distal digits bilateral. Light touch intact. Patient does respond to painful stimuli. Dermatological: Full-thickness wound to the left heel is now healed. Musculoskeletal: No pain to palpation to the full-thickness wound to left heel. No pain with calf pressure. 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 Any new allergies or adverse reactions No Had a fall/change in ADL's that may No increase risk of falls Signs or symptoms of abuse and/or No neglect since last visit Have you been in the hospital since your No last visit? Has dressing in place as prescribed Yes Has compression in place as prescribed Yes Has offloadiing in place as prescribed Yes Experienced any changes in pain level or No management Left Footwear No Footwear Right Footwear No Footwear Pain Scale: 0-10 Numeric Is Patient Pain Free? Yes - Nurse 1 - General Ulcer Measurement Start: 11/11/24 09:28 Freq: Status: Active Protocol: Activity Type Activity Date Activity User E-sign Co-sign Detail Recorded Client Recorded Date Recorded By Document 11/11/24 09:29 [id number] 11/11/24 09:33 11/11/24 09:29 Wound Center Nurse 1 24 lt heel -Current Size (cm) - Length 0.5 -Current Size (cm) - Width 0.3 -Current Size (cm) - Depth 0.1 -Total Square Cm 0.15 -Photo Taken No -Epithelialization Large 67-100% -Tunneling No -Undermining/Tunneling No -Circular Undermining No -Exudate Amt Small -Exudate Type Serosanguineous -Wound Margin Distinct, Outline Attached -Granulation Amt Small (1-33%) -Slough/Fibrin No -Necrosis Amt None Present (0 %) -Texture (Bren-wound Skin Appearance) Assessed -Moisture (Bren-wound Skin Appearance) Assessed,Dry/ Scaly -Color (Bren-wound Skin Appearance) Assessed -Temperature (Bren-wound Skin No Abnormality Appearance) (Pt Warm) -Tenderness on Palpation (Bren-wound No Skin Appearance) -Ulcer Cleansing Soap and Water -Foul Odor after Cleansing No -Anesthetic Used 5% Lidocaine Gel Lower Limb Edema Present Yes Right Calf (cm) 37.5 Right Ankle (cm) 27.5 Left Calf (cm) 35.2 Left Ankle (cm) 23 WC - Nurse 2 - General Ulcer CM Notes Start: 11/11/24 09:28 Freq: Status: Active Protocol: Activity Type Activity Date Activity User E-sign Co-sign Detail Recorded Client Recorded Date Recorded By Document 11/11/24 09:47 JAUN [id number] 11/11/24 09:48 JAUN 11/11/24 09:47 Wound Center Nurse 2 24 lt heel -Correct Patient Yes -Correct Side, Site, Position No -Correct Procedure No -Procedure Performed No -Post Debridement (cm) - Length 0 -Post Debridement (cm) - Width 0 -Post Debridement (cm) - Depth 0 -Total Square (Post) (cm) 0 -Area of Debridement (cm) - Length 0 -Area of Debridement (cm) - Width 0 -Total Square (Area) (cm) 0 -Wound/Ulcer Outcome Healed- Epithelialized Pain Scale: 0-10 Numeric Is Patient Pain Free? Yes Assessment/Plan Assessment/Plan (1) Non-pressure chronic ulcer of left heel and midfoot with fat layer exposed: CODE(S): L97.422 - Non-pressure chronic ulcer of left heel and midfoot with fat layer exposed PLAN: Patient was examined and evaluated. All findings were discussed with the patient. All questions were answered to the patient satisfaction. At this time the patient's full-thickness wound to left heel is now healed. Due to the patient's continued swelling we will move forward with wrapping the bilateral legs. The left heel was dressed with AMB pad and a 3M layer compression bandage was donned to the bilateral lower extremity. Patient will follow-up in 1 week for dressing change and evaluation. If there is no further breakdown of skin should be discharged from the wound care center next week. Patient will follow-up in 1 weeks (2) Other specified peripheral vascular diseases: CODE(S): I73.89 - Other specified peripheral vascular diseases
[2024-11-18 09:10] VITALS: BP 151/86; PULSE 78; RESP 18; TEMP 35.6
--- NOTE | 2024-11-18 12:36 | PCM.WC.PN ---
History of Present Illness Date of Service: 11/18/24 Chief Complaint: Left heel ulceration History of Wound: A 63-year-old female who presents to the wound care center today for left heel ulceration and bilateral lower extremity edema with multiple leg wounds secondary to previous blisters. In October 2019, patient had rubbing in shoes while shopping which led to a blister that developed into an ulceration. Patient was then seen by Prieto AmezquitaP.Usha. for wound care. Patient then became infected and was admitted to the hospital. Patient was noted to have OM on MRI. Patient wanted to avoid surgery so a chcf course of appropriate IV antibiotics was the treatment chosen. Patient was also noted to have hyperglycemia and has worked with hospitalist and PCP to try to get better control. Blood sugar levels remain elevated. Patient also had LEAS obtained in the hospital which suggested patient had the proper blood flow to allow healing. Patient has since finished chcf course of antibiotics. Patient has since been seen on a weekly basis in office with progression and regression of wound noted over the weeks. Patient has tried various dressing options including wet to dry and santyl. The most progress was noted with Santyl but patient ran out and was unable to refill due to insurance issues. During which time the wound regressed. She also has an offloading surgical shoe and offloading boot to relieve pressure. Patient care is henceforth being carried out at the wound care center. Patient not currently on any antibiotics. Patient has since began skin graft aplications significant improvement is been noted to her foot overall. Patient has finished epifix graft applications with some very small remaining wound noted to left heel. Patient has new wounds noted to bilateral third digits. The right 3rd digit wound has healed. Her left ankle ulcer remains healed Patient relates that ambulation is getting easier and she is rebuilding her strength slowly. She has not had any worsening of minor remaining heel wound since beginning ambulation again. 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 Her has been helping her change the dressings daily to the left heel. She had been following in the wound care center in 2021 for left heel ulceration but was subsequently lost to follow-up. She cites transportation issues. She presents to the wound care center today for continued care of her left heel ulceration and bilateral lower extremity wounds secondary to edema. Progress of Wound: Healed left heel wound. Subjective Subjective Patient is a 64-year-old diabetic female presenting to clinic today for follow-up evaluation of left heel full-thickness wound. The patient has left the dressing clean dry and intact and admits with dressing changes the wound is still healed. She is following her dialysis schedule. She is very grateful for her care. She denies any trauma. Denies constitutional symptoms. No other pedal complaints at this time. Objective Data Objective Data Vital Signs: Vital Signs Temp Pulse Resp BP O2 Del Method 96.0 F L 78 18 151/86 H Room Air 11/18/24 09:10 11/18/24 09:10 11/18/24 09:10 11/18/24 09:10 11/18/24 09:10 Oxygen Delivery Method Room Air Physical Exam Narrative Vascular: DP and PT pulse are palpable to the bilateral lower extremity. CFT is brisk. Nonpitting edema appreciated bilateral lower extremity. No erythema skin temperature great is warm to warm from proximal ankles to distal digits bilateral. Light touch intact. Patient does respond to painful stimuli. Dermatological: Full-thickness wound to the left heel is now healed. Musculoskeletal: No pain to palpation to the full-thickness wound to left heel. No pain with calf pressure. Debridement Note Debridement Note Post-Debridement Measurements and Additional Note: Post-Debridement Measurements/Treatment - Nurse 1 - General Ulcer Assessment Start: 11/11/24 09:28 Freq: Status: Active Protocol: WC.LOWEXT Activity Type Activity Date Activity User E-sign Co-sign Detail Recorded Client Recorded Date Recorded By Document 11/11/24 09:29 [id number] 11/11/24 09:33 Document 11/18/24 09:10 [id number] 11/18/24 09:10 KW 11/11/24 11/18/24 09:29 09:10 - Today's Visit Information Type of service Follow-up Visit Follow-up Visit (Physician/MANAGER OF DEVELOPMENT (Physician/MANAGER OF DEVELOPMENT ) ) Arrival Mode Wheelchair Wheelchair Transfer Assistance Manual Patient Identification Verified (Name & Yes Yes ) Vital Signs Temperature (97.8 F-99.1 F) 97.8 F 96.0 F L Temperature Source Temporal Temporal Pulse Rate (60-100) 83 78 Pulse Location Monitor Monitor Respiratory Rate (12-18) 16 18 Respiratory rate source Observation Observation Oxygen Delivery Method Room Air Room Air Blood Pressure (90/60-120/80) 136/78 H 151/86 H Blood Pressure Mean (mm Hg) 97 107 Source Monitor Monitor Position Semi-Fowlers Semi-Fowlers Blood Pressure Location Right Arm Right Forearm History Since Last Visit- (Skip if this is Patient's initial visit) Have you changed medications since your No No last visit? Any new allergies or adverse reactions No No Had a fall/change in ADL's that may No No increase risk of falls Signs or symptoms of abuse and/or No No neglect since last visit Have you been in the hospital since your No No last visit? Has dressing in place as prescribed Yes Yes Has compression in place as prescribed Yes Yes Has offloadiing in place as prescribed Yes N/A Experienced any changes in pain level or No No management Left Footwear No Footwear Slipper Right Footwear No Footwear Slipper Pain Scale: 0-10 Numeric Is Patient Pain Free? Yes Yes WC - Nurse 1 - General Ulcer Measurement Start: 11/11/24 09:28 Freq: Status: Active Protocol: Activity Type Activity Date Activity User E-sign Co-sign Detail Recorded Client Recorded Date Recorded By Document 11/11/24 09:29 [id number] 11/11/24 09:33 11/11/24 09:29 Wound Center Nurse 1 24 lt heel -Current Size (cm) - Length 0.5 -Current Size (cm) - Width 0.3 -Current Size (cm) - Depth 0.1 -Total Square Cm 0.15 -Photo Taken No -Epithelialization Large 67-100% -Tunneling No -Undermining/Tunneling No -Circular Undermining No -Exudate Amt Small -Exudate Type Serosanguineous -Wound Margin Distinct, Outline Attached -Granulation Amt Small (1-33%) -Slough/Fibrin No -Necrosis Amt None Present (0 %) -Texture (Bren-wound Skin Appearance) Assessed -Moisture (Bren-wound Skin Appearance) Assessed,Dry/ Scaly -Color (Bren-wound Skin Appearance) Assessed -Temperature (Bren-wound Skin No Abnormality Appearance) (Pt Warm) -Tenderness on Palpation (Brne-wound No Skin Appearance) -Ulcer Cleansing Soap and Water -Foul Odor after Cleansing No -Anesthetic Used 5% Lidocaine Gel Lower Limb Edema Present Yes Right Calf (cm) 37.5 Right Ankle (cm) 27.5 Left Calf (cm) 35.2 Left Ankle (cm) 23 - Nurse 2 - General Ulcer CM Notes Start: 11/11/24 09:28 Freq: Status: Active Protocol: Activity Type Activity Date Activity User E-sign Co-sign Detail Recorded Client Recorded Date Recorded By Document 11/11/24 09:47 JF [id number] 11/11/24 09:48 JF Document 11/18/24 09:26 DS [id number] 11/18/24 09:26 DS 11/11/24 11/18/24 09:47 09:26 Wound Center Nurse 2 24 lt heel -Correct Patient Yes -Correct Side, Site, Position No -Correct Procedure No -Procedure Performed No -Post Debridement (cm) - Length 0 -Post Debridement (cm) - Width 0 -Post Debridement (cm) - Depth 0 -Total Square (Post) (cm) 0 -Area of Debridement (cm) - Length 0 -Area of Debridement (cm) - Width 0 -Total Square (Area) (cm) 0 -Wound/Ulcer Outcome Healed- Epithelialized Pain Scale: 0-10 Numeric Is Patient Pain Free? Yes Yes - Nurse 3 - General Ulcer D/C NN Start: 11/11/24 09:28 Freq: Status: Active Protocol: Activity Type Activity Date Activity User E-sign Co-sign Detail Recorded Client Recorded Date Recorded By Document 11/11/24 15:18 GM [id number] 11/11/24 15:19 Document 11/18/24 09:37 KW [id number] 11/18/24 09:38 KW 11/11/24 11/18/24 15:18 09:37 Wound Care Center Nurse 3 #1 L Heel -Primary Dressing Applied Silicone Border Foam 6x6 -Silicone Border Foam 6x6 1 BLE -Lotion applied to leg before No compression wrap -Multi-Layered Wrap Application Multi-Layer Comp - Bilat ($ ) -Tubular Bandage Double Layer -Size of Tubigrip Used Size E -Size E ($) 2 -Multi-Layer Compression Bilat (Qty 1 applied) Pain Scale: 0-10 Numeric Is Patient Pain Free? Yes Yes - Visit Discharge Discharge Condition Stable Stable Ambulatory Status Wheelchair Wheelchair Transportation Private Auto Private Auto Medication Reconcilliation completed & No provided to patient/care provider Clinical Summary of Care Provided Yes Assessment/Plan Assessment/Plan (1) Non-pressure chronic ulcer of left heel and midfoot with fat layer exposed: CODE(S): L97.422 - Non-pressure chronic ulcer of left heel and midfoot with fat layer exposed PLAN: Patient was examined and evaluated. All findings were discussed with the patient. All questions were answered to the patient satisfaction. After exam the patient is left heel full-thickness wound is now healed. The area will be dressed with bordered foam and double layer Tubigrip to the left lower extremity. Educated the patient continue to rest and elevate and offload the heels is much as possible and not to keep her legs in a dependent position. It was strongly educated the patient to offload at all times especially when at dialysis as she is always at risk for breakdown of skin due to her sensitive tissue which she is understanding of. Patient will be discharged from the wound care center today and follow-up as needed. (2) Other specified peripheral vascular diseases: CODE(S): I73.89 - Other specified peripheral vascular diseases
--- NOTE | 2024-11-18 12:36 | PCM.WC.PN ---
History of Present Illness Date of Service: 11/18/24 Chief Complaint: Left heel ulceration History of Wound: A 63-year-old female who presents to the wound care center today for left heel ulceration and bilateral lower extremity edema with multiple leg wounds secondary to previous blisters. In October 2019, patient had rubbing in shoes while shopping which led to a blister that developed into an ulceration. Patient was then seen by Prieto AmezquitaP.Usha. for wound care. Patient then became infected and was admitted to the hospital. Patient was noted to have OM on MRI. Patient wanted to avoid surgery so a group home course of appropriate IV antibiotics was the treatment chosen. Patient was also noted to have hyperglycemia and has worked with hospitalist and PCP to try to get better control. Blood sugar levels remain elevated. Patient also had LEAS obtained in the hospital which suggested patient had the proper blood flow to allow healing. Patient has since finished group home course of antibiotics. Patient has since been seen on a weekly basis in office with progression and regression of wound noted over the weeks. Patient has tried various dressing options including wet to dry and santyl. The most progress was noted with Santyl but patient ran out and was unable to refill due to insurance issues. During which time the wound regressed. She also has an offloading surgical shoe and offloading boot to relieve pressure. Patient care is henceforth being carried out at the wound care center. Patient not currently on any antibiotics. Patient has since began skin graft aplications significant improvement is been noted to her foot overall. Patient has finished epifix graft applications with some very small remaining wound noted to left heel. Patient has new wounds noted to bilateral third digits. The right 3rd digit wound has healed. Her left ankle ulcer remains healed Patient relates that ambulation is getting easier and she is rebuilding her strength slowly. She has not had any worsening of minor remaining heel wound since beginning ambulation again. 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 Her has been helping her change the dressings daily to the left heel. She had been following in the wound care center in 2021 for left heel ulceration but was subsequently lost to follow-up. She cites transportation issues. She presents to the wound care center today for continued care of her left heel ulceration and bilateral lower extremity wounds secondary to edema. Progress of Wound: Healed left heel wound. Subjective Subjective Patient is a 64-year-old diabetic female presenting to clinic today for follow-up evaluation of left heel full-thickness wound. The patient has left the dressing clean dry and intact and admits with dressing changes the wound is still healed. She is following her dialysis schedule. She is very grateful for her care. She denies any trauma. Denies constitutional symptoms. No other pedal complaints at this time. Objective Data Objective Data Vital Signs: Vital Signs Temp Pulse Resp BP O2 Del Method 96.0 F L 78 18 151/86 H Room Air 11/18/24 09:10 11/18/24 09:10 11/18/24 09:10 11/18/24 09:10 11/18/24 09:10 Oxygen Delivery Method Room Air Physical Exam Narrative Vascular: DP and PT pulse are palpable to the bilateral lower extremity. CFT is brisk. Nonpitting edema appreciated bilateral lower extremity. No erythema skin temperature great is warm to warm from proximal ankles to distal digits bilateral. Light touch intact. Patient does respond to painful stimuli. Dermatological: Full-thickness wound to the left heel is now healed. Musculoskeletal: No pain to palpation to the full-thickness wound to left heel. No pain with calf pressure. Debridement Note Debridement Note Post-Debridement Measurements and Additional Note: Post-Debridement Measurements/Treatment - Nurse 1 - General Ulcer Assessment Start: 11/11/24 09:28 Freq: Status: Active Protocol: WC.LOWEXT Activity Type Activity Date Activity User E-sign Co-sign Detail Recorded Client Recorded Date Recorded By Document 11/11/24 09:29 [id number] 11/11/24 09:33 Document 11/18/24 09:10 [id number] 11/18/24 09:10 KW 11/11/24 11/18/24 09:29 09:10 - Today's Visit Information Type of service Follow-up Visit Follow-up Visit (Physician/GRADUATE RESEARCH ASSISTANT (Physician/GRADUATE RESEARCH ASSISTANT ) ) Arrival Mode Wheelchair Wheelchair Transfer Assistance Manual Patient Identification Verified (Name & Yes Yes ) Vital Signs Temperature (97.8 F-99.1 F) 97.8 F 96.0 F L Temperature Source Temporal Temporal Pulse Rate (60-100) 83 78 Pulse Location Monitor Monitor Respiratory Rate (12-18) 16 18 Respiratory rate source Observation Observation Oxygen Delivery Method Room Air Room Air Blood Pressure (90/60-120/80) 136/78 H 151/86 H Blood Pressure Mean (mm Hg) 97 107 Source Monitor Monitor Position Semi-Fowlers Semi-Fowlers Blood Pressure Location Right Arm Right Forearm History Since Last Visit- (Skip if this is Patient's initial visit) Have you changed medications since your No No last visit? Any new allergies or adverse reactions No No Had a fall/change in ADL's that may No No increase risk of falls Signs or symptoms of abuse and/or No No neglect since last visit Have you been in the hospital since your No No last visit? Has dressing in place as prescribed Yes Yes Has compression in place as prescribed Yes Yes Has offloadiing in place as prescribed Yes N/A Experienced any changes in pain level or No No management Left Footwear No Footwear Slipper Right Footwear No Footwear Slipper Pain Scale: 0-10 Numeric Is Patient Pain Free? Yes Yes WC - Nurse 1 - General Ulcer Measurement Start: 11/11/24 09:28 Freq: Status: Active Protocol: Activity Type Activity Date Activity User E-sign Co-sign Detail Recorded Client Recorded Date Recorded By Document 11/11/24 09:29 [id number] 11/11/24 09:33 11/11/24 09:29 Wound Center Nurse 1 24 lt heel -Current Size (cm) - Length 0.5 -Current Size (cm) - Width 0.3 -Current Size (cm) - Depth 0.1 -Total Square Cm 0.15 -Photo Taken No -Epithelialization Large 67-100% -Tunneling No -Undermining/Tunneling No -Circular Undermining No -Exudate Amt Small -Exudate Type Serosanguineous -Wound Margin Distinct, Outline Attached -Granulation Amt Small (1-33%) -Slough/Fibrin No -Necrosis Amt None Present (0 %) -Texture (Bren-wound Skin Appearance) Assessed -Moisture (Bren-wound Skin Appearance) Assessed,Dry/ Scaly -Color (Bren-wound Skin Appearance) Assessed -Temperature (Bren-wound Skin No Abnormality Appearance) (Pt Warm) -Tenderness on Palpation (Bren-wound No Skin Appearance) -Ulcer Cleansing Soap and Water -Foul Odor after Cleansing No -Anesthetic Used 5% Lidocaine Gel Lower Limb Edema Present Yes Right Calf (cm) 37.5 Right Ankle (cm) 27.5 Left Calf (cm) 35.2 Left Ankle (cm) 23 - Nurse 2 - General Ulcer CM Notes Start: 11/11/24 09:28 Freq: Status: Active Protocol: Activity Type Activity Date Activity User E-sign Co-sign Detail Recorded Client Recorded Date Recorded By Document 11/11/24 09:47 JF [id number] 11/11/24 09:48 JF Document 11/18/24 09:26 DS [id number] 11/18/24 09:26 DS 11/11/24 11/18/24 09:47 09:26 Wound Center Nurse 2 24 lt heel -Correct Patient Yes -Correct Side, Site, Position No -Correct Procedure No -Procedure Performed No -Post Debridement (cm) - Length 0 -Post Debridement (cm) - Width 0 -Post Debridement (cm) - Depth 0 -Total Square (Post) (cm) 0 -Area of Debridement (cm) - Length 0 -Area of Debridement (cm) - Width 0 -Total Square (Area) (cm) 0 -Wound/Ulcer Outcome Healed- Epithelialized Pain Scale: 0-10 Numeric Is Patient Pain Free? Yes Yes - Nurse 3 - General Ulcer D/C NN Start: 11/11/24 09:28 Freq: Status: Active Protocol: Activity Type Activity Date Activity User E-sign Co-sign Detail Recorded Client Recorded Date Recorded By Document 11/11/24 15:18 GM [id number] 11/11/24 15:19 Document 11/18/24 09:37 KW [id number] 11/18/24 09:38 KW 11/11/24 11/18/24 15:18 09:37 Wound Care Center Nurse 3 #1 L Heel -Primary Dressing Applied Silicone Border Foam 6x6 -Silicone Border Foam 6x6 1 BLE -Lotion applied to leg before No compression wrap -Multi-Layered Wrap Application Multi-Layer Comp - Bilat ($ ) -Tubular Bandage Double Layer -Size of Tubigrip Used Size E -Size E ($) 2 -Multi-Layer Compression Bilat (Qty 1 applied) Pain Scale: 0-10 Numeric Is Patient Pain Free? Yes Yes - Visit Discharge Discharge Condition Stable Stable Ambulatory Status Wheelchair Wheelchair Transportation Private Auto Private Auto Medication Reconcilliation completed & No provided to patient/care provider Clinical Summary of Care Provided Yes Assessment/Plan Assessment/Plan (1) Non-pressure chronic ulcer of left heel and midfoot with fat layer exposed: CODE(S): L97.422 - Non-pressure chronic ulcer of left heel and midfoot with fat layer exposed PLAN: Patient was examined and evaluated. All findings were discussed with the patient. All questions were answered to the patient satisfaction. After exam the patient is left heel full-thickness wound is now healed. The area will be dressed with bordered foam and double layer Tubigrip to the left lower extremity. Educated the patient continue to rest and elevate and offload the heels is much as possible and not to keep her legs in a dependent position. It was strongly educated the patient to offload at all times especially when at dialysis as she is always at risk for breakdown of skin due to her sensitive tissue which she is understanding of. Patient will be discharged from the wound care center today and follow-up as needed. (2) Other specified peripheral vascular diseases: CODE(S): I73.89 - Other specified peripheral vascular diseases
--- NOTE | 2024-11-18 14:11 | WC ---
PHOTO-LEFT HEEL 11/18/24
--- NOTE | 2024-11-18 14:11 | WC ---
PHOTO-LEFT HEEL 11/18/24
== END 2024-11-26 07:50 | disposition home or self-care (01) ==
LOC: WC 09:15
PROVIDERS: PCP Family Medicine; Referring Provider Podiatrist Foot & Ankle Surgery; Visit Provider Podiatrist Foot & Ankle Surgery
DX: E11.622 Type 2 diabetes mellitus with other skin ulcer (principal); L97.422 Non-pressure chronic ulcer of left heel and midfoot with fat layer exposed; Z99.2 Dependence on renal dialysis; I73.89 Other specified peripheral vascular diseases
CPT/HCPCS: 29581; 99213; G0463